=== PATIENT | female | born 1945 | race Caucasian/White ===

== ENCOUNTER 2022-08-02 11:29 | Outpatient (OUT) | payer MEDICARE, MEDICAID, SELFPAY ==
[2022-08-02 12:55] LABS: Alanine Aminotransferase 26 U/L (14-59); Albumin Globulin Ratio 0.8; Albumin Level 3.2 g/dL (3.4-5.0); Alkaline Phosphatase 78 U/L (46-116); Anion Gap 10.4; Aspartate Amino Transferase 15 U/L (15-37); BUN Creatinine Ratio 19.3; Bilirubin Total 0.6 mg/dL (0.2-1.0); Calcium 9.6 mg/dL (8.5-10.1); Carbon Dioxide 31.4 mmol/L (21.0-32.0); Chloride 99 mmol/L (98-107); Chol HDL Ratio 2.1; Cholesterol 158 mg/dL (<=200); Estimated GFR (African America 43 (>=60); Estimated GFR (Non-African Ame 35 (>=60); Glucose 199 mg/dL (74-106); HDL Cholesterol 77 mg/dL (40-60); Potassium 4.8 mmol/L (3.5-5.1); Sodium 136 mmol/L (136-145); Total Protein 7.2 g/dL (6.4-8.2); Triglycerides 94 mg/dL (<=150); VLDL CHOLESTEROL 18.8 mg/dL
== END 2022-08-02 11:30 ==
PROVIDERS: PCP Family Medicine; Visit Provider Nurse Practitioner
DX: E78.2 Mixed hyperlipidemia (principal); I25.10 Atherosclerotic heart disease of native coronary artery without angina pectoris
CPT/HCPCS: 36415; 80053; 80061

== ENCOUNTER 2022-09-05 14:15 | Outpatient (OUT) | payer MEDICARE, SELFPAY ==
[2022-09-05 15:09] LABS: Estimated Average Glucose 160 mg/dL; Glycohemoglobin A1C 7.2 % (4.5-6.2)
== END 2022-09-05 14:16 | disposition home or self-care (01) ==
PROVIDERS: PCP Family Medicine; Visit Provider Family Medicine
DX: E11.65 Type 2 diabetes mellitus with hyperglycemia (principal)
CPT/HCPCS: 36415; 82043; 83036

== ENCOUNTER 2023-02-15 10:23 | Outpatient (OUT) | payer MEDICARE, MEDICAID, SELFPAY ==
--- NOTE | 2023-02-15 10:33 | US_ITS ---
[address] [address] Patient Name: RIVKA TURNER MRN: [id number] date: 1945 Sex: F Assigned Patient Location: Current Patient Location: Accession/Order Number: [id number] Exam Date: 02/15/2023 10:40 Report Date: 02/17/2023 01:24 At the request of: CHRISTOPHER GALICIA Procedure: US carotid duplex BI EXAMINATION: US carotid duplex BI HISTORY: bilateral carotid artery stenosis I65.23 COMPARISON: Ultrasound carotid artery bilateral 11/28/2019 TECHNIQUE: Duplex Doppler ultrasound analysis of carotid and vertebral arteries. . Bilateral carotid arterial duplex examination was performed using B-mode, color flow and spectral analysis. Carotid stenosis is reported according to validated velocity parameters, similar to NASCET criteria. FINDINGS: RIGHT CAROTID ARTERY: Moderate atherosclerotic narrowing of the distal CCA, bulb, proximal ICA. RIGHT VERTEBRAL: Antegrade flow. Subclavian: PSV: 228.2 cm/s EDV: 0.0 cm/s CCA: Prox: PSV: 112.9 cm/s EDV: 6.3 cm/s Mid: PSV: 84.0 cm/s EDV: 8.9 cm/s Distal: PSV: 59.8 cm/s EDV: 5.8 cm/s BULB: PSV: 66.8 cm/s EDV: 7.5 cm/s ICA: Prox: PSV: 90.8 cm/s EDV: 13.8 cm/s Mid: PSV: 82.0 cm/s EDV: 16.0 cm/s Distal: PSV: 85.3 cm/s EDV: 16.0 cm/s ECA: PSV: 202.2 cm/s EDV: 0.0 cm/s VERTEBRAL: PSV: 47.9 cm/s EDV: 9.5 cm/s ICA/CCA ratio: PSV: 1.1 EDV: 1.6 LEFT CAROTID ARTERY: Moderate atherosclerotic narrowing of distal CCA, bulb, proximal ICA. Moderate-marked atherosclerotic narrowing of proximal ECA. LEFT VERTEBRAL: Antegrade flow. Subclavian: PSV: 209.4 cm/s EDV: 0.0 cm/s CCA: Prox: PSV: 77.6 cm/s EDV: 13.8 cm/s Mid: PSV: 77.6 cm/s EDV: 13.8 cm/s Distal: PSV: 75.4 cm/s EDV: 12.7 cm/s BULB: PSV: 125.3 cm/s EDV: 17.1 cm/s ICA: Prox: PSV: 73.2 cm/s EDV: 18.9 cm/s Mid: PSV: 88.8 cm/s EDV: 24.1 cm/s Distal: PSV: 91.4 cm/s EDV: 17.6 cm/s ECA: PSV: 293.7 cm/s EDV: 17.9 cm/s VERTEBRAL: PSV: 85.9 cm/s EDV: 15.0 cm/s ICA/CCA ratio: PSV: 1.6 EDV: 1.2 US/US carotid duplex BI IMPRESSION: 1. 0-49% flow stenosis within the right left carotid arteries secondary to moderate atherosclerotic narrowing. 2. Elevated flow velocities and moderate-marked atherosclerotic narrowing within left ECA. Electronically authenticated by: LISSETTE VILLALOBOS Date: 02/17/2023 01:24
== END 2023-02-15 10:24 | disposition home or self-care (01) ==
LOC: US 10:24
PROVIDERS: PCP Family Medicine; Visit Provider Nurse Practitioner Family
DX: I65.23 Occlusion and stenosis of bilateral carotid arteries (principal)
CPT/HCPCS: 93880

== ENCOUNTER 2023-08-03 13:45 | Outpatient (OUT) | payer MEDICARE, MEDICAID, SELFPAY ==
--- OUTSIDE RECORDS SUMMARY | 2023-08-03 14:16 | XMS_ITS | CCD ---
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 Name Role Phone CHIDI MELLO Unavailable Unavailable SVEN WILKINS Unavailable Unava ilable KELLI HANKINS Admitting Unavailable KELLI HANKINS Attending Unavailable AMADOR ABDALLA Primary Care Unavailable CHIDI LEWIS Referring Unavailable Unavailable Primary Care Provider Unavailromie e MD Amador Abdalla Primary Care Provider [phone] MD Xander Hammer Admit Provider SHAHNAZ Pittman Other Provider Unavailable DO Gen Bolivar Other Provider MD Wil Domínguez Other Provider MD Zafar Luu Other Provider MD Isabel Beckwith Other Provider [phone] MD Rufus Sauceda Other Provider ARIEL Resendiz Other Provider MD Latosha Figueroa Other Provider MD Dinora Haynes Other Provider MD Rahul Hi Other Provider MD Rusty Amor Attending Provider PROVIDER, UNKNOWN Attending Unavailable PROVIDER, UNKNOWN Admitting Unavailable Unavailable Unavailable Amador Abdalla Primary Care Unavailable Elba Pittman Consulting Unavailable Xander Hammer Admitting Unavailab Rusty Ontiveros Attending Unavailable Gen Bolivar Consulting Unavailable Domínguez, Wil Consulting Unavailable Bell, Zafar Carson Consulting Unavail able Isabel Beckwith Consulting Unavailable Sohail, Rufus Consulting Unavailab alverto Kaur, Sandra Zuniga Consulting Unavailable Figueroa, Latosha Consulting Unavailable Dallas, Dinora Yohanaeb Consulting Unavailab alverto Hi, Tarek Consulting Unavailable NADERER, DR AMADOR Arcos Consulting Unavailable NADERER, DR AMADOR Arcos Attending Unavailable NADERER, DR AMADOR Arcos Admitting Unavailable NADERER, DR AMADOR Arcos Primary Care Unavailable NADERER, DR AMADOR Arcos Primary Care Unavailable FAWWAD, GREGORIO H Admitting Unavailable WEST, DR CHRYSTAL Howard Consulting Unavailable FAWWAD, GREGORIO H Attending Unavailable FAWWAD, GREGORIO H Consulting Unavailable NADERER, DR AMADOR Arcos Primary Care Unavailable TYSON, DR ANN Consulting Unavailable TYSON, DR ANN Attending Unavailable TYSON, DR ANN Admitting Unavailable MOUKARBEL, DR FIGUEROA Attending Unavailable MOUKARBEL, DR FIGUEROA Admitting Unavailable NADERER, DR AMADOR Arcos Primary Care Unavailable NADERER, DR AMADOR Arcos Primary Care Unavailable FAWWAD, GREGORIO H Attending Unavailable NELSON ., TARA Consulting Unavailable FAWWAD, GREGORIO H Admitting Unavailable FAWWAD, GREGORIO H Consulting Unavailable ANA PAULA LANDERS Consulting Unavailable UNLU, SAI Consulting Unavailable NADERER, DR AMADOR Arcos Primary Care Unavailable HOY ., DR LAU Consulting Unavailable HOY ., DR LAU Attending Unavailable HOY ., DR LAU Admitting Unavailable PAY ., DR REGAN Consulting Unavailable GRECHNY ., VIGNESH TSANG Consulting Unavailabl e POLICARO, NASRIN Consulting Unavailable KATKO, TRENTON D Consulting Unavailable KATKOJESSTRENTON D Attending Unavailable KATKO, TRENTON D Admitting Unavailable NADERER, DR AMADOR Arcos Primary Care Unavailable STANFORD BUENROSTRO Consulting Unavailable HAY ., DR FLEMING Admitting Unavailable HAY ., DR FLEMING Consulting Unavailable HAY ., DR FLEMING Attending Unavailable NADERER, DR AMADOR Arcos Primary Care Unavailable NADERER, DR AMADOR Arcos Primary Care Unavailable WEST, DR CHRYSTAL Howard Consulting Unavailable HAY ., DR FLEMING Attending Unavailable HAY ., DR FLEMING Admitting Unavailable GRECHNY ., VIGNESH TSANG Consulting Unavailabl e NADERER, DR AMADOR Arcos Consulting Unavailable NADERER, DR AMADOR Arcos Attending Unavailable NADERER, DR AMADOR Arcos Admitting Unavailable NADERER, DR AMADOR Arcos Primary Care Unavailable YUSRA, ELY Consulting Unavailable YUSRA, ELY Attending Unavailable YUSRA, ELY Admitting Unavailable NADERER, DR AMADOR Arcos Primary Care Unavailable YUSRA, ELY Attending Unavailable YUSRA, ELY Admitting Unavailable NADERER, DR AMADOR Arcos Primary Care Unavailable YUSRA, ELY Consulting Unavailable NADERER, DR AMADOR Arcos Consulting Unavailable NADERER, DR AMADOR Arcos Attending Unavailable NADERER, DR AMADOR Arcos Admitting Unavailable NADERER, DR AMADOR Arcos Primary Care Unavailable POLICARO, NASRIN Consulting Unavailable OVITT, CARMINA Referring Unavailable MOUKACAROLINA FELICIANO Attending Unavailable CHRISTOPHER GALICIA Attending Unavailable OVITT, CARMINA Attending Unavailable NADERER, AMADOR Attending Unavailable AMAYA WILKINS Attending Unavailable Allergies Allergy Classification Reported Allergen(s) Allergy Type Date of Onset Reaction(s) Facility (5 sources) Clindamycin; Translations: [CLINDAMYCIN] Drug Allergy 04-05-19 16 Difficulty Swallowing [facility] (1 source) Codeine Drug Allergy 12-31-19 09 [facility] (1 source) cyclobenzaprine Drug Allergy 12-31-19 09 [facility] (3 sources) exenatide Drug Allergy 08-26-19 17 [facility] (4 sources) Penicillins; Translations: [PENICILLINS] Drug allergy (disorder) 12-31-19 09 Itching [facility] (1 source) Prochlorperazine Drug Allergy 12-31-19 09 [facility] (2 sources) Iodinated Contrast Media - IV Dye Drug allergy (disorder) 12-31-19 09 [facility] (1 source) trival; Translations: [trival] Propensity to adverse reactions (disorder) 12-17-19 13 [facility] (4 sources) Amoxicillin; Translations: [amoxicillin] Drug Allergy 06-25-19 22 Unknown Reaction [facility] (5 sources) cyclobenzaprine; Translations: [cyclobenzaprine] Drug Allergy 12-12-19 13 Itching [facility] (6 sources) Doxycycline; Translations: [doxycycline] Drug Allergy 12-22-19 20 Unknown Reaction [facility] (5 sources) exenatide; Translations: [exenatide] Drug Allergy 12-28-19 13 Rash [facility] (5 sources) Prochlorperazine; Translations: [prochlorperazine] Drug Allergy 12-12-19 13 Cramping of the Muscles [facility] (6 sources) Sucralfate; Translations: [sucralfate] Drug Allergy 12-22-19 20 Nausea [facility] (7 sources) traZODone; Translations: [trazodone] Drug Allergy 12-19-19 Nausea [facility] (3 sources) Iodinated Contrast Media; Translations: [Iodinated Contrast Media] Allergy to substance 02-07-20 14 Itching [facility] (2 sources) Clindamycin; Translations: [facility]ind[facility] (2 sources) Penicillins; Translations: [[facility]enicillins] [facility] (1 source) Clindamycin Drug Allergy 06-25-19 [facility] (1 source) Penicillins Drug allergy (disorder) 06-25-19 [facility] (1 source) Clindamycin Drug Allergy [facility] (1 source) cyclobenzaprine Drug Allergy [facility] (1 source) Levamisole Drug Allergy 12-03-19 21 [facility] (1 source) liraglutide Drug Allergy 07-16-19 22 [facility] (1 source) Prochlorperazine Drug Allergy [facility] (2 sources) Trivora (28) Drug allergy (disorder) [facility] (1 source) Misc-Drug Drug allergy (disorder) [facility] (1 source) Codeine; Translations: [CODEINE] Drug Allergy 12-28-19 [facility] (1 source) Contrast media; Translations: [DYE] Propensity to adverse reactions to drug (disorder) 06-03-19 [facility] (1 source) Ticagrelor; Translations: [TICAGRELOR] Drug Allergy 06-03-19 [facility] (1 source) OTHER; Translations: [OTHER] Propensity to adverse reactions (disorder) 12-12-19 [facility] Medications Current Medications Medication Drug Class(es) Dates Sig (Normalized) Sig (Original) acetaminophen 325 mg / HYDROcodone bitartrate 5 mg oral tablet (1 source) Opioid Agonist Start: 06-24-2021 take 1 tablet by mouth every eight hours Hydrocodone-Aceta minophen Active 1 TAB PO Q8H June 24, 2021 4:16am ALPRAZolam 0.5 mg oral tablet (1 source) Benzodiazepine Start: 06-24-2021 take 0.5 mg by mouth three times daily Alprazolam Active 0.5 MG PO Three times daily June 24, 2021 4:16am amLODIPine 10 mg oral tablet (1 source) Dihydropyridine Calcium Channel Tung Start: 06-24-2021 take 10 mg by mouth once daily Amlodipine Active 10 MG PO Daily June 24, 2021 4:16am aspirin 81 mg oral tablet (1 source) Platelet Aggregation Inhibitor, Nonsteroidal Anti-inflammatory Drug Start: 06-24-2021 take 81 mg by mouth once daily Aspirin Active 81 MG PO Daily June 24, 2021 4:16am atorvastatin 80 mg oral tablet (2 sources) HMG-CoA Reductase Inhibitor Start: 06-24-2021 take 80 mg by mouth at bedtime Atorvastatin Active 80 MG PO Bedtime 30 June 24, 2021 4:10pm Start: 06-24-2021 End: 06-25-2021 take 40 mg by mouth at bedtime Atorvastatin Discontinu ed 40 MG PO Bedtime June 24, 2021 4:16am June 25, 2021 11:27am 24 hr buPROPion hydrochloride 150 mg extended release oral tablet (1 source) Aminoketone Start: 06-24-2021 take 150 mg by mouth once daily Bupropion Hcl Active 150 MG PO Daily June 24, 2021 4:16am carvedilol 12.5 mg oral tablet (1 source) alpha-Adrenergic Tung, beta-Adrenergic Tung Start: 06-24-2021 take 12.5 mg by mouth twice daily at mealtime Carvedilol Active 12.5 MG PO Twice daily with meals 60 June 24, 2021 4:10pm 30 actuat fluticasone furoate 0.05 mg/actuat dry powder inhaler (1 source) Corticosteroid Start: 06-24-2021 Fluticasone Furoate Active 2 INH INHALATION Daily June 24, 2021 4:16am furosemide 40 mg oral tablet (1 source) Loop Diuretic Start: 06-24-2021 take 40 mg by mouth once daily Furosemide Active 40 MG PO Daily June 24, 2021 4:16am hydrALAZINE hydrochloride 50 mg oral tablet (1 source) Arteriolar Vasodilator Start: 06-24-2021 take 50 mg by mouth twice daily Hydralazine Active 50 MG PO Twice daily June 24, 2021 4:16am 3 ml liraglutide 6 mg/ml pen injector (1 source) GLP-1 Receptor Agonist Start: 06-25-2021 inject 0.6 mg by subcutaneous injection once daily, then inject 1.2 mg by subcutaneous injection once daily Liraglutide (Victoza 3-Dae) 0.6 mg/0.1 mL (18 mg/3 mL) pen injector Active 1.2 MG SUBCUT Daily 6 June 25, 2021 10:54am 0.6mg sq daily x 1 week then 1.2 mg sq daily thereafter if well tolerated losartan potassium 50 mg oral tablet (1 source) Angiotensin 2 Receptor Tung Start: 06-24-2021 take 50 mg by mouth once daily Losartan Active 50 MG PO Daily June 24, 2021 4:16am 24 hr metFORMIN hydrochloride 500 mg extended release oral tablet (1 source) Biguanide Start: 06-24-2021 take 500 mg by mouth twice daily Metformin Active 500 MG PO Twice daily June 24, 2021 4:16am montelukast 10 mg oral tablet (1 source) Leukotriene Receptor Antagonist Start: 06-24-2021 take 10 mg by mouth at bedtime Montelukast Active 10 MG PO Bedtime June 24, 2021 4:16am ondansetron 4 mg disintegrating oral tablet (1 source) Serotonin-3 Receptor Antagonist Start: 06-24-2021 take 4 mg by mouth every six hours Ondansetron Active 4 MG PO Q6H June 24, 2021 4:16am pantoprazole 40 mg delayed release oral tablet (1 source) Proton Pump Inhibitor Start: 06-24-2021 take 40 mg by mouth twice daily Pantoprazole Active 40 MG PO Twice daily June 24, 2021 4:16am PARoxetine hydrochloride 40 mg oral tablet (1 source) Serotonin Reuptake Inhibitor Start: 06-24-2021 take 40 mg by mouth once daily Paroxetine Hcl Active 40 MG PO Daily June 24, 2021 4:16am temazepam 30 mg oral capsule (1 source) Benzodiazepine Start: 06-24-2021 take 30 mg by mouth at bedtime Temazepam Active 30 MG PO Bedtime June 24, 2021 4:16am ticagrelor 90 mg oral tablet (1 source) Start: 06-24-2021 take 1 tablet by mouth twice daily Ticagrelor (Brilinta) 90 mg Tablet Active 90 MG PO Twice daily 180 90 June 24, 2021 4:10pm Completed/Discontinued Medications Medication Drug Class(es) Dates Sig (Normalized) Sig (Original) glipiZIDE 10 mg oral tablet (1 source) Sulfonylurea Start: 06-24-2021 End: 06-25-2021 take 10 mg by mouth once daily Glipizide Discontinued 10 MG PO Daily June 24, 2021 4:16am June 25, 2021 11:27am nitroglycerin 0.4 mg sublingual tablet (3 sources) Nitrate Vasodilator Start: 10-21-2021 Nitroglycerin 0.4 MG Sublingual Tablet Sublingual DISSOLVE 1 TABLET UNDER TONGUE NEEDED CHEST PAIN. MAY REPEAT EVERY 5 MINUTES IF NEEDED, AFTER 3RD DOSE CALL 911 Quantity: 1 Refills: 3 Ordered: 21-Oct-2021 Zafar Bolivar DO Start : 21-Oct-2021 Active Start: 06-24-2021 Nitroglycerin Active 0.4 MG SUBLINGUAL Q5M 25 June 24, 2021 4:10pm Problems Active Problems Problem Classification Problem Date Documented Da te Episodic/Chronic Abdominal hernia (1 source) Diaphragmatic hernia without obstruction or gangrene; Translations: [DIAPH HERNIA W/O OBST/GANGRENE] Onset: 3 Episodic Acute and unspecified renal failure (1 source) Acute kidney failure, unspecified; Translations: [ACUTE KIDNEY FAILURE UNSPECIFIED] Onset: 3 Episodic Acute myocardial infarction (2 sources) Myocardial infarction; Translations: [Non-ST elevation (NSTEMI) myocardial infarction] 06-24-2021 Chronic Anxiety disorders (3 sources) Anxiety disorder, unspecified; Translations: [Claustrophobia] Onset: 3 Chronic Bacterial infection; unspecified site (2 sources) Enterococcus as the cause of diseases classified elsewhere; Translations: [Klebsiella pneumoniae [K. pneumoniae] as the cause of diseases classified elsewhere] Onset: 2 Episodic Chronic kidney disease (6 sources) Chronic kidney disease; Translations: [Chronic kidney disease, unspecified] Onset: 2 06-24-2021 Chronic Chronic kidney disease (4 sources) Chronic kidney disease; Translations: [CHRONIC KIDNEY DISEASE STAGE 3B] Onset: 2 Congestive heart failure; nonhypertensive (7 sources) Chronic diastolic (congestive) heart failure; Translations: [CHRONIC DIASTOLIC HEART FAILURE] Onset: 2 Chronic Coronary atherosclerosis and other heart disease (10 sources) Coronary arteriosclerosis; Translations: [Atherosclerotic heart disease of [place] coronary artery without angina pectoris] Onset: 2 06-24-2021 Chronic Diabetes mellitus with complications (7 sources) Type 2 diabetes mellitus with diabetic chronic kidney disease; Translations: [Type 2 diabetes mellitus with hyperglycemia] Onset: 2 Chronic Diabetes mellitus without complication (4 sources) Diabetes mellitus; Translations: [Type 2 diabetes mellitus without complications] Onset: 2 06-24-2021 Chronic Disorders of lipid metabolism (2 sources) Pure hypercholesterolemia, unspecified; Translations: [Hyperlipidemia, unspecified] Onset: 2 Chronic Esophageal disorders (4 sources) Gastroesophageal reflux disease; Translations: [Gastro-esophageal reflux disease without esophagitis] Onset: 2 06-24-2021 Chronic Essential hypertension (5 sources) Hypertensive disorder; Translations: [Essential (primary) hypertension] Onset: 2 06-24-2021 Chronic Fluid and electrolyte disorders (2 sources) Dehydration; Translations: [Hypokalemia] Onset: 2 Episodic Genitourinary symptoms and ill-defined conditions (5 sources) Urgency of urination; Translations: [Dysuria] Onset: 3 Episodic Hypertension with complications and secondary hypertension (2 sources) Hypertensive heart and chronic kidney disease with heart failure and stage 1 through stage 4 chronic kidney disease, or unspecified chronic kidney disease; Translations: [Hypertensive heart disease with heart failure] Onset: 2 Chronic Malaise and fatigue (4 sources) Weakness; Translations: [WEAKNESS] Onset: 2 Episodic Miscellaneous mental health disorders (1 source) Psychophysiologic insomnia; Translations: [PSYCHOPHYSIOLOGIC INSOMNIA] Onset: 3 Chronic Mood disorders (3 sources) Depressive disorder; Translations: [Depression] Onset: 2 06-24-2021 Chronic Mood disorders (2 sources) Mood disorders; Translations: [F32.A - Depression, unspecified] Onset: 2 Mycoses (1 source) Candidiasis of skin and nail; Translations: [CANDIDIASIS OF SKIN AND NAIL] Onset: 3 Episodic Nonspecific chest pain (1 source) Chest pain; Translations: [Chest pain, unspecified] Episodic Nutritional deficiencies (1 source) Vitamin D deficiency, unspecified; Translations: [VITAMIN D DEFICIENCY UNSPECIFIED] Onset: 3 Chronic Occlusion or stenosis of precerebral arteries (2 sources) Occlusion and stenosis of bilateral carotid arteries; Translations: [Occlusion and stenosis of bilateral carotid arteries] Onset: 2 Chronic Other acquired deformities (1 source) Other forms of scoliosis, lumbar region; Translations: [OTHER FORMS SCOLIOSIS LUMBAR REGION] Onset: 3 Chronic Other aftercare (1 source) Other intermediate card tender (current) drug therapy; Translations: [OTH CORRECTION CURRENT DRUG THERAPY] Onset: 3 Episodic Other aftercare (1 source) snf (current) use of aspirin; Translations: [CORRECTION CURRENT USE OF ASPIRIN] Onset: 3 Episodic Other circulatory disease (1 source) Personal history of transient ischemic attack (TIA), and cerebral infarction without residual deficits; Translations: [PERS HX TIA AND CI NO RESID DEFICIT] Onset: 3 Episodic Other connective tissue disease (1 source) Fibromyalgia; Translations: [Fibromyalgia] 06-24-2021 Episodic Other connective tissue disease (3 sources) Fibromyalgia; Translations: [Myalgia and myositis, unspecified] Onset: 2 Episodic Other connective tissue disease (1 source) Repeated falls; Translations: [REPEATED FALLS] Onset: 3 Episodic Other gastrointestinal disorders (1 source) Other constipation; Translations: [OTHER CONSTIPATION] Onset: 3 Episodic Other lower respiratory disease (1 source) Paroxysmal nocturnal dyspnea; Translations: [Dyspnea, unspecified] Episodic Other nervous system disorders (3 sources) Cerebral cysts; Translations: [CEREBRAL CYSTS] Onset: 3 Chronic Other nervous system disorders (1 source) Other chronic pain; Translations: [OTHER CHRONIC PAIN] Onset: 2 Chronic Other nervous system disorders (1 source) Unsteadiness on feet; Translations: [UNSTEADINESS ON FEET] Onset: 3 Episodic Other nervous system disorders (1 source) Other abnormalities of gait and mobility; Translations: [OTHER ABNORMALITIES GAIT AND MOBILITY] Onset: 3 Episodic Other non-traumatic joint disorders (1 source) Polyarthritis, unspecified; Translations: [POLYARTHRITIS UNSPECIFIED] Onset: 3 Chronic Other nutritional; endocrine; and metabolic disorders (1 source) Morbid (severe) obesity due to excess calories; Translations: [MORBID SEVERE OBES D/T EXCESS SVETLANA] Onset: 2 Chronic Other nutritional; endocrine; and metabolic disorders (1 source) Body mass index (BMI) 32.0-32.9, adult; Translations: [BODY MASS INDEX BMI 32.0-32.9 ADULT] Onset: 2 Chronic Residual codes; unclassified (1 source) Acquired absence of other specified parts of digestive tract; Translations: [ACQ ABSENCE OTH PART DIGESTV TRACT] Onset: 3 Episodic Residual codes; unclassified (1 source) Acquired absence of both cervix and uterus; Translations: [ACQUIRED ABSENCE BOTH CERVIX AND UTERUS] Onset: 3 Episodic Spondylosis; intervertebral disc disorders; other back problems (1 source) Spondylosis without myelopathy or radiculopathy, cervical region; Translations: [SPONDYLS W/O MYELO-/RADICULOP CERV] Onset: 3 Chronic Spondylosis; intervertebral disc disorders; other back problems (4 sources) Dorsalgia, unspecified; Translations: [DORSALGIA UNSPECIFIED] Onset: 3 Episodic Unclassified (1 source) I21.4 - Non-ST elevation (NSTEMI) myocardial infarction; Translations: [I21.4 - Non-ST elevation (NSTEMI) myocardial infarction] Onset: 2 Unclassified (1 source) CHRN KIDNEY DISEASE STG 3 UNSP; Translations: [CHRN KIDNEY DISEASE STG 3 UNSP] Onset: 3 Unclassified (1 source) ACUTE CANDIDIASIS VULVA AND VAGINA; Translations: [ACUTE CANDIDIASIS VULVA AND VAGINA] Onset: 3 Unclassified (1 source) CONTACT W/AND (SUSP) EXPOS COVID-19; Translations: [CONTACT W/AND (SUSP) EXPOS COVID-19] Onset: 3 Urinary tract infections (2 sources) Urinary tract infection, site not specified; Translations: [UTI SITE NOT SPECIFIED] Onset: 2 Episodic Past or Other Problems Problem Classification Problem Date Documented Da te Episodic/Chronic Abdominal pain (4 sources) Unspecified abdominal pain; Translations: [UNSPECIFIED ABDOMINAL PAIN] Onset: 08-31-2021 Episodic Coronary atherosclerosis and other heart disease (5 sources) Patient post percutaneous transluminal coronary angioplasty; Translations: [Percutaneous transluminal coronary angioplasty status] Onset: 05-18-2022 Episodic Nausea and vomiting (8 sources) Nausea with vomiting, unspecified; Translations: [Nausea] Onset: 08-16-2021 Episodic Other aftercare (1 source) snf (current) use of oral hypoglycemic drugs; Translations: [CORRECTION USE ORAL HYPOGLYCEMIC DX] Onset: 08-18-2021 Episodic Other gastrointestinal disorders (1 source) Diarrhea, unspecified; Translations: [DIARRHEA UNSPECIFIED] Onset: 08-30-2021 Episodic Other lower respiratory disease (1 source) Personal history of pneumonia (recurrent); Translations: [PERSONAL HX OF PNEUMONIA RECURRENT] Onset: 07-21-2021 Episodic Other nervous system disorders (2 sources) Other speech disturbances; Translations: [Other speech disturbances] Onset: 08-29-2022 Episodic Other screening for suspected conditions (not mental disorders or infectious disease) (1 source) Abnormal results of thyroid function studies; Translations: [ABNORMAL RESULTS THR FUNCTION STDY] Onset: 07-21-2021 Episodic Residual codes; unclassified (4 sources) Early satiety; Translations: [EARLY SATIETY] Onset: 09-09-2021 Episodic Results Test Name Value Interpretation Reference Range Facility 36on 03-05-2023 36 Please let her know her recent carotid ultrasound showed things were stable. Plan for a follow-up ultrasound in 1 year. Follow-up in 6 months. Thanks! [facility] Telephoneon 03-05-2023 Telephone [id number] Irma Turner 1945 F Date Provider Department Center 03/05/2023 CHRISTOPHER SHIN Family History Problem Relation Age of Onset Breast cancer Mother Stroke Father Family Status - Relation Status Age at Mother Father [facility] Office Visiton 01-31-2023 Follow-up visit [id number] Irma Turner 1945 F Date Provider Department Center 01/31/2023 CHRISTOPHER SHIN Family History Problem Relation Age of Onset Breast cancer Mother Stroke Father Family Status - Relation Status Age at Mother Father Level of Service:78912 [place] OFFICE/OUTPATIENT ESTABLISHED MOD MDM 30-39 MIN Reason for Visit and Comments: Congestive Heart Failure [127] Hypertension [248331] Carotid Artery Disease [453] [facility] Consulton 08-29-2022 Consult [id number] Irma Turner 1945 Date Provider Department Center 08/29/2022 CARMINA SAMANIEGO [facility] [place] Family History Problem Relation Age of Onset Breast cancer Mother Stroke Father Family Status - Relation Status Age at Mother Father Level of Service:39041 [place] OFFICE/OUTPATIENT NEW MODERATE MDM 45-59 MINUTES [facility] Office Visiton 08-02-2022 Follow-up visit [id number] Irma Turner 1945 F Date Provider Department Center 08/02/2022 CAROLINA MARCOS CHARLES Arnold Family History Problem Relation Age of Onset Stroke Father Family Status - Relation Status Age at Father Level of Service:86423 [place] OFFICE/OUTPATIENT ESTABLISHED MOD MDM 30-39 MIN Reason for Visit and Comments: Follow-up [118595] Coronary Artery Disease [187] Hypertension [421128] Congestive Heart Failure [127] [facility] 36on 07-21-2022 36 LVM for pt to call [facility] to schedule consult with Carmina Mills CNP for Arachnoid Cyst. Images pushed from [facility]. Letter sent to pt's home. [facility] Telephoneon 07-21-2022 Telephone [id number] Irma Turner 1945 F Date Provider Department Center 07/21/2022 Christiano-AYANA JEONG [facility] [place] Fl Family History Problem Relation Age of Onset Stroke Father Family Status - Relation Status Age at Father [facility] MRI BRAIN WO W CONon 023 MRI BRAIN WO W CON EXAMINATION: MRI BRA IN WO W CON HISTORY: Cerebral cyst COMPARISON: CT head 05/13/2022 TECHNIQUE: A variety of imaging planes and parameters were utilized for visualization of suspected pathology. Images were performed without and with ml Dotarem contrast. FINDINGS: CEREBRUM: No edema, hemorrhage, mass, acute infarction, or inappropriate atrophy. CEREBELLUM: Within the posterior fossa between the tentorium and cerebellum is a 3.9 x 2.6 x 2.4 cm encapsulated fluid collection with imperceptible segura and no enhancement. This is within the midline cerebellum and causes slight upward displacement of the tentorium. BRAINSTEM: No edema, hemorrhage, mass, acute infarction, or inappropriate atrophy. CSF SPACES: Ventricles, cisterns, and sulci are appropriate for age. No hydrocephalus, subarachnoid hemorrhage, or mass. SKULL: No mass or other significant visible lesion. SINUSES: Limited views demonstrate no significant mucosal thickening or fluid. ORBITS: Limited views are unremarkable. OTHER: No abnormal meningeal or parenchymal enhancement. IMPRESSION: 1. Large benign-appearing arachnoid cyst within posterior fossa which appears to be connected to the fourth ventricle. 2. Age consistent atrophy and mild chronic small vessel ischemic changes. Electronically authenticated by: LISSETTE VILLALOBOS Date: 2022-07-04 09:08 Normal [facility] CREATININEon 07-03-2022 Creatinine [Mass/Vol] 1.87 mg/dL Critically high 0.55-1.02 [facility] Comment on above: Performed By: #### U DORY #### [facility] [address] [address] [address] Gasper Garber EGFR-AF [place] 32 mL/min/1.73m2 Critically low >=60 [facility] Comment on above: Performed By: #### U ARMICR #### [facility] [address] [address] [address] Gasper Garber EGFR-NON AF [place] 26 mL/min/1.73m2 Critically low >=60 [facility] Comment on above: Performed By: #### U ARMICR #### [facility] [address] [place] [address] Dr. Gasper Garber UA (CLEAN/CATCH) MICROSCOPIC IF INDICATEon 05-26-2022 Bilirubin Ql (U) Negative Normal NEGATIVE [facility] Comment on above: Performed By: #### U ARMICR #### [facility] [address] [place] [address] Dr. Gasper Garber Clarity (U) CLEAR Normal CLEAR [facility] Comment on above: Performed By: #### U ARMICR #### [facility] [address] [place] [address] Dr. Gasper Garber Color (U) LT. YELLOW Normal YELLOW [facility] Comment on above: Performed By: #### U ARMICR #### [facility] [address] [place] [address] Dr. Gasper Garber Glucose Ql (U) Negative Normal NEGATIVE [facility] Comment on above: Performed By: #### U ARMICR #### [facility] [address] [place] [address] Dr. Gasper Garber Hemoglobin Ql (U) Negative Normal NEGATIVE [facility] Comment on above: Performed By: #### U ARMICR #### [facility] [address] [place] [address] Dr. Gasper Garber Ketones Ql (U) Negative Normal NEGATIVE [facility] Comment on above: Performed By: #### U ARMICR #### [facility] [address] [place] [address] Dr. Gasper Garber LEUKOCYTES Negative Normal NEGATIVE [facility] Comment on above: Performed By: #### U ARMICR #### [facility] [address] [place] [address] Dr. Gasper Garber Nitrite Ql (U) Negative Normal NEGATIVE [facility] Comment on above: Performed By: #### U ARMICR #### [facility] [address] [place] [address] Dr. Gasper Garber pH (U) 6.5 [pH] Normal 5-9 [facility] Comment on above: Performed By: #### U ARMICR #### [facility] [address] [place] [address] Dr. Gasper Garber SPEC GRAVITY 1.010 Normal 1.005-<=1.0 25 [facility] Comment on above: Performed By: #### U ARMICR #### [facility] [address] [place] [address] Dr. Gasper Garber UA PROTEIN TRACE Normal NEGATIVE/ TRACE [facility] Comment on above: Performed By: #### U ARMICR #### [facility] [address] [place] [address] Dr. Gasper Garber UR MICRO IND NOT INDICATED Normal [facility] Comment on above: Performed By: #### U ARMICR #### [facility] [address] [place] [address] Dr. Gasper Garber Urobilinogen Qn (U) 0.2 {Kaushik'U}/dL Normal 0.2 - 1. 0 [facility] Comment on above: Performed By: #### U ARMICR #### [facility] [address] [place] [address] Dr. Gasper Garber CULTURE URINEon 05-16-2022 CULTURE URINE Isolate 1 Enterococcus faecium >100,000 cfu/mL of ORGANISM 1 Enterococcus faecium ANTIBIOTIC M.I.C RX STATUS Benzylpenicillin 2 S F Ampicillin <=2 S F Gentamicin High Level (synergy) SYN-S S F Streptomycin High Level (synergy) SYN-S S F Ciprofloxacin <=0.5 S F Levofloxacin 1 S F Quinupristin/Dalfopristin 1 S F Linezolid 1 S F Vancomycin <=0.5 S F Tetracycline <=1 S F Nitrofurantoin <=16 S F Normal [facility] Comment on above: Performed By: #### U RCX #### [facility] [address] [place] [address] Dr. Gasper Garber MAGNESIUMon 05-16-2022 Magnesium [Mass/Vol] 2.0 mg/dL Normal 1.8-2.4 [facility] Comment on above: Performed By: #### BERNIE MALDONADO #### [facility] [address] [place] [address] Dr. Gasper Garber CBC AUTO DIFFon 05-15-2022 BASO # 0.0 103/ul Normal 0.0-0.1 [facility] Comment on above: Performed By: #### TONI MALDONADORO #### [facility] [address] [place] [address] Dr. Gasper Garber Basophils/100 WBC (Bld) 0.5 % Normal 0.2-2.0 [facility] Comment on above: Performed By: #### BERNIE MALDONADO #### [facility] [address] [place] [address] Dr. Gasper Garber EO # 0.2 103/ul Normal 0.0-0.7 [facility] Comment on above: Performed By: #### BERNIE MALDONADO #### [facility] [address] [place] [address] Dr. Gasper Garber Eosinophils/100 WBC (Bld) 1.8 % Normal 0.9-7.0 [facility] Comment on above: Performed By: #### BERNIE MALDONADO #### [facility] [address] [place] [address] Dr. Gasper Garber Erythrocyte distribution width (RBC) [Ratio] 12.5 % Normal 11.0-15.0 [facility] Comment on above: Performed By: #### TONI MALDONADORO #### [facility] [address] [place] [address] Dr. Gasper Garber Hematocrit (Bld) [Volume fraction] 36.1 % Normal 36.0-48.0 [facility] Comment on above: Performed By: #### TONI MALDONADORO #### [facility] [address] [place], [place] [id number] Dr. Gasper Garber Hemoglobin (Bld) [Mass/Vol] 11.8 g/dL Critically low 12.0-16.0 [facility] Comment on above: Performed By: #### JOANNE MALDONADOICRO #### [facility] [address] [place] [address] Dr. Gasper Garber IG # 0.02 10e3/ul Normal 0.00-0.03 [facility] Comment on above: Performed By: #### Bernice HERNDON UMICRO #### [facility] [address] [place] [address] Dr. Gasper Garber IG % 0.2 % Normal 0.0-0.5 [facility] Comment on above: Performed By: #### Bernice HERNDON UMICRO #### [facility] [address] [place] [address] Dr. Gasper Garber LYMPH # 1.2 103/ul Normal 1.2-3.8 [facility] Comment on above: Performed By: #### Bernice HERNDON UMICRO #### [facility] [address] [place] [address] Dr. Gasper Garber Lymphocytes/100 WBC (Bld) 14.2 % Critically low 20.5-60.0 [facility] Comment on above: Performed By: #### Bernice HERNDON UMICRO #### [facility] [address] [place] [address] Dr. Gasper Garber MANUAL DIFF REQ NO Normal [facility] Comment on above: Performed By: #### Berince HERNDON UMICRO #### [facility] [address] [place] [address] Dr. Gasper Garber MCH (RBC) [Entitic mass] 30.6 pg Normal 26.7-34.0 [facility] Comment on above: Performed By: #### Bernice HERNDON, UMICRO #### [facility] [address] [place] [address] Dr. Gasper Garber MCHC (RBC) [Mass/Vol] 32.7 g/dL Normal 29.9-35.2 [facility] Comment on above: Performed By: #### TONI MALDONADORO #### [facility] [address] [place] [address] Dr. Gasper Garber MCV (RBC) [Entitic vol] 93.8 fL Normal 81.0-99.0 [facility] Comment on above: Performed By: #### Bernice HERNDON UMICRO #### [facility] [address] [place] [address] Dr. Gasper Garber MONO # 1.0 103/ul Critically high 0.3-0.8 [facility] Comment on above: Performed By: #### Bernice HERNDON UMICRO #### [facility] [address] [place] [address] Dr. Gasper Garber Monocytes/100 WBC (Bld) 12.3 % Critically high 1.7-12.0 [facility] Comment on above: Performed By: #### TONI MALDONADORO #### [facility] [address] [place] [address] Dr. Gasper Garber NEUT # 5.9 103/ul Normal 1.4-6.5 [facility] Comment on above: Performed By: #### TONI MALDONADORO #### [facility] [address] [place] [address] Dr. Gasper Garber Neutrophils/100 WBC (Bld) 71.0 % Normal 43.0-75.0 [facility] Comment on above: Performed By: #### JOANNE MALDONADOICRO #### [facility] [address] [place] [address] Dr. Gasper Garber Platelet mean volume (Bld) [Entitic vol] 11.3 fL Normal 9.5-13.5 [facility] Comment on above: Performed By: #### Bernice HERNDON UMICRO #### [facility] [address] [place] [address] Dr. Gasper Garber PLT 237 103/ul Normal 150-450 [facility] Comment on above: Performed By: #### TONI MALDONADORO #### [facility] [address] [place] [address] Dr. Gasper Garber RBC 3.85 106/ul Critically low 4.20-5.40 [facility] Comment on above: Performed By: #### TONI MALDONADORO #### [facility] [address] [place] [address] Dr. Gasper Garber WBC 8.4 103/ul Normal 4.0-11.0 [facility] Comment on above: Performed By: #### Bernice HERNDON UMICRO #### [facility] [address] [place] [address] Dr. Gasper Garber MAGNESIUMon 05-15-2022 Magnesium [Mass/Vol] 2.0 mg/dL Normal 1.8-2.4 [facility] Comment on above: Performed By: #### Bernice HERNDON UMICRO #### [facility] [address] [place] [address] Dr. Gasper Garber PROF 14(COMP METB)on 023 Albumin [Mass/Vol] 3.4 g/dL Normal 3.4-5.0 [facility] Comment on above: Performed By: #### TONI MALDONADORO #### [facility] [address] [place] [address] Dr. Gasper aGrber Albumin/Globulin [Mass ratio] 1.0 {ratio} Normal [facility] Comment on above: Performed By: #### Bernice HERNDON UMICRO #### [facility] [address] [place] [address] Dr. Gasper Garber ALP [Catalytic activity/Vol] 70 U/L Normal 46-116 [facility] Comment on above: Performed By: #### Bernice HERNDON UMICRO #### [facility] [address] [place] [address] Dr. Gasper Garber ALT [Catalytic activity/Vol] 23 U/L Normal 14-59 [facility] Comment on above: Performed By: #### Bernice HERNDON UMICRO #### [facility] [address] [place] [address] Dr. Gasper Garber Anion gap [Moles/Vol] 12.2 mmol/L Normal [facility] Comment on above: Performed By: #### TONI MALDONADORO #### [facility] [address] [address] [address] Gasper Garber AST [Catalytic activity/Vol] 13 U/L Critically low 15-37 [facility] Comment on above: Performed By: #### TONI MALDONADORO #### [facility] [address] [place] [address] Dr. Gasper Garber Bilirubin [Mass/Vol] 0.6 mg/dL Normal 0.2-1.0 [facility] Comment on above: Performed By: #### TONI MALDONADORO #### [facility] [address] [place] [address] Dr. Gasper Garber Calcium [Mass/Vol] 9.6 mg/dL Normal 8.5-10.1 [facility] Comment on above: Performed By: #### TONI MALDONADORO #### [facility] [address] [place] [address] Dr. Gasper Garber Chloride [Moles/Vol] 106 mmol/L Normal 98-107 [facility] Comment on above: Performed By: #### TONI MALDONADORO #### [facility] [address] [place] [address] Dr. Gasper Garber CO2 [Moles/Vol] 29.0 mmol/L Normal 21.0-32.0 [facility] Comment on above: Performed By: #### TONI MALDONADORO #### [facility] [address] [place] [address] Dr. Gasper Garber Creatinine [Mass/Vol] 1.46 mg/dL Critically high 0.55-1.02 [facility] Comment on above: Performed By: #### TONI MALDONADORO #### [facility] [address] [place] [address] Dr. Gasper Garber EGFR-AF [place] 42 mL/min/1.73m2 Critically low >=60 [facility] Comment on above: Performed By: #### TONI MALDONADORO #### [facility] [address] [place], [place] [id number] Dr. Gasper Garber EGFR-NON AF [place] 35 mL/min/1.73m2 Critically low >=60 [facility] Comment on above: Performed By: #### TONI MALDONADORO #### [facility] [address] [place] [address] Dr. Gasper Garber Globulin (S) [Mass/Vol] 3.3 g/dL Normal [facility] Comment on above: Performed By: #### JOANNE MALDONADOICRO #### [facility] [address] [place] [address] Dr. Gasper Garber Glucose [Mass/Vol] 154 mg/dL Critically high 74-106 [facility] Comment on above: Performed By: #### Bernice HERNDON UMDINORAHRO #### [facility] [address] [place] [address] Dr. Gasper Garber Potassium [Moles/Vol] 3.2 mmol/L Critically low 3.5-5.1 [facility] Comment on above: Performed By: #### TONI MALDONADORO #### [facility] [address] [place] [address] Dr. Gasper Garber Protein [Mass/Vol] 6.7 g/dL Normal 6.4-8.2 [facility] Comment on above: Performed By: #### Bernice HERNDON UMICRO #### [facility] [address] [place] [address] Dr. Gasper Garber Sodium [Moles/Vol] 144 mmol/L Normal 136-145 [facility] Comment on above: Performed By: #### Bernice HERNDON UMICRO #### [facility] [address] [place] [address] Dr. Gasper Garber Urea nitrogen [Mass/Vol] 28.0 mg/dL Critically high 7.0-18.0 [facility] Comment on above: Performed By: #### Bernice HERNDON, UMICRO #### [facility] [address] [place] [address] Dr. Gasper Garber Urea nitrogen/Creatinine [Mass ratio] 19.2 mg/mg Normal [facility] Comment on above: Performed By: #### E RURBERNIE #### [facility] [address] [address] [address] Gasper Garber BNPon 05-14-2022 Natriuretic peptide B (Bld) [Mass/Vol] 1231.0 pg/mL Critically high <=900.0 [facility] Comment on above: Performed By: #### L ACT #### [facility] [address] [place] [address] Dr. Gasper Garber CARDIAC SEKOU ADMITon 023 CK [Catalytic activity/Vol] 30 U/L Normal 26-192 [facility] Comment on above: Performed By: #### L ACT #### [facility] [address] [place] [address] Dr. Gasper Garber CK.MB [Mass/Vol] 0.54 ng/mL Normal <=3.60 [facility] Comment on above: Performed By: #### L ACT #### [facility] [address] [place] [address] Dr. Gasper Garber HSTROP 9.8 pg/mL Normal 4.0-51.3 [facility] Comment on above: Result Comment: CUT- OFF POINTS HAVE BEEN ESTABLISHED BASED ON THE FOURTH UNIVERSAL DEFINITIONS OF MYOCARDIAL INFARCTION. THE UPPER REFERENCE LIMIT (URL) OF TROPONIN, DEFINED THE 99TH PERCENTILE OF cTnI DISTRIBUTION IN A REFERENCE POPULATION, HAS BEEN CONFIRMED THE DECISION THRESHOLD FOR [place] DIAGNOSIS. Performed By: #### L ACT #### [facility] [address] [place] [address] Dr. Gasper Garber JUSTIN 62 ng/mL Normal 9-82 [facility] Comment on above: Performed By: #### L ACT #### [facility] [address] [place] [address] Dr. Gasper Garber CBC AUTO DIFFon 05-14-2022 BASO # 0.0 103/ul Normal 0.0-0.1 [facility] Comment on above: Performed By: #### U ARMICR #### [facility] [address] [place] [address] Dr. Gasper Garber Basophils/100 WBC (Bld) 0.4 % Normal 0.2-2.0 [facility] Comment on above: Performed By: #### U ARMICR #### [facility] [address] [place] [address] Dr. Gasper Garber EO # 0.2 103/ul Normal 0.0-0.7 [facility] Comment on above: Performed By: #### U ARMICR #### [facility] [address] [place] [address] Dr. Gasper Garber Eosinophils/100 WBC (Bld) 2.4 % Normal 0.9-7.0 [facility] Comment on above: Performed By: #### U ARMICR #### [facility] [address] [place] [address] Dr. Gasper Garber Erythrocyte distribution width (RBC) [Ratio] 12.7 % Normal 11.0-15.0 [facility] Comment on above: Performed By: #### U ARMICR #### [facility] [address] [place] [address] Dr. Gasper Garber Hematocrit (Bld) [Volume fraction] 36.4 % Normal 36.0-48.0 [facility] Comment on above: Performed By: #### U ARMICR #### [facility] [address] [place] [address] Dr. Gasper Garber Hemoglobin (Bld) [Mass/Vol] 11.7 g/dL Critically low 12.0-16.0 [facility] Comment on above: Performed By: #### U ARMICR #### [facility] [address] [place] [address] Dr. Gasper Garber IG # 0.03 10e3/ul Normal 0.00-0.03 [facility] Comment on above: Performed By: #### U ARMICR #### [facility] [address] [place] [address] Dr. Gasper Garber IG % 0.3 % Normal 0.0-0.5 [facility] Comment on above: Performed By: #### U ARMICR #### [facility] [address] [place] [address] Dr. Gasper Garber LYMPH # 1.9 103/ul Normal 1.2-3.8 [facility] Comment on above: Performed By: #### U ARMICR #### [facility] [address] [place] [address] Dr. Gasper Garber Lymphocytes/100 WBC (Bld) 20.2 % Critically low 20.5-60.0 [facility] Comment on above: Performed By: #### U ARMICR #### [facility] [address] [place] [address] Dr. Gasper Garber MANUAL DIFF REQ NO Normal [facility] Comment on above: Performed By: #### U ARMICR #### [facility] [address] [place] [address] Dr. Gasper Garber MCH (RBC) [Entitic mass] 30.8 pg Normal 26.7-34.0 [facility] Comment on above: Performed By: #### U ARMICR #### [facility] [address] [place] [address] Dr. Gasper Garber MCHC (RBC) [Mass/Vol] 32.1 g/dL Normal 29.9-35.2 [facility] Comment on above: Performed By: #### U ARMICR #### [facility] [address] [place] [address] Dr. Gasper Garber MCV (RBC) [Entitic vol] 95.8 fL Normal 81.0-99.0 [facility] Comment on above: Performed By: #### U ARMICR #### [facility] [address] [place] [address] Dr. Gasper Garber MONO # 1.2 103/ul Critically high 0.3-0.8 [facility] Comment on above: Performed By: #### U ARMICR #### [facility] [address] [place] [address] Dr. Gasper Garber Monocytes/100 WBC (Bld) 13.0 % Critically high 1.7-12.0 [facility] Comment on above: Performed By: #### U ARMICR #### [facility] [address] [address] [address] Gasper Garber NEUT # 5.8 103/ul Normal 1.4-6.5 [facility] Comment on above: Performed By: #### U ARMICR #### [facility] [address] [place] [address] Dr. Gasper Garber Neutrophils/100 WBC (Bld) 63.7 % Normal 43.0-75.0 [facility] Comment on above: Performed By: #### U ARMICR #### [facility] [address] [place] [address] Dr. Gasper Garber Platelet mean volume (Bld) [Entitic vol] 10.0 fL Normal 9.5-13.5 [facility] Comment on above: Performed By: #### U ARMICR #### [facility] [address] [place] [address] Dr. Gasper Garber PLT 251 103/ul Normal 150-450 [facility] Comment on above: Performed By: #### U ARMICR #### [facility] [address] [place] [address] Dr. Gasper Garber RBC 3.80 106/ul Critically low 4.20-5.40 [facility] Comment on above: Performed By: #### U ARMICR #### [facility] [address] [place] [address] Dr. Gasper Garber WBC 9.2 103/ul Normal 4.0-11.0 [facility] Comment on above: Performed By: #### U ARMICR #### [facility] [address] [place] [address] Dr. Gasper Garber BASO # 0.0 103/ul Normal 0.0-0.1 [facility] Comment on above: Performed By: #### U ARMICR #### [facility] [address] [place] [address] Dr. Gasper Garber Basophils/100 WBC (Bld) 0.0 % Critically low 0.2-2.0 [facility] Comment on above: Performed By: #### U ARMICR #### [facility] [address] [address] [address] Gasper Garber EO # 0.0 103/ul Normal 0.0-0.7 [facility] Comment on above: Performed By: #### U ARMICR #### [facility] [address] [place] [address] Dr. Gasper Garber Eosinophils/100 WBC (Bld) 0.0 % Critically low 0.9-7.0 [facility] Comment on above: Performed By: #### U ARMICR #### [facility] [address] [place] [address] Dr. Gasper Garber Erythrocyte distribution width (RBC) [Ratio] 12.1 % Normal 11.0-15.0 [facility] Comment on above: Performed By: #### U ARMICR #### [facility] [address] [place] [address] Dr. Gasper Garber Hematocrit (Bld) [Volume fraction] 37.9 % Normal 36.0-48.0 [facility] Comment on above: Performed By: #### U ARMICR #### [facility] [address] [place] [address] Dr. Gasper Garber Hemoglobin (Bld) [Mass/Vol] 12.2 g/dL Normal 12.0-16.0 [facility] Comment on above: Performed By: #### U ARMICR #### [facility] [address] [place] [address] Dr. Gasper Garber IG # 0.00 10e3/ul Normal 0.00-0.03 [facility] Comment on above: Performed By: #### U ARMICR #### [facility] [address] [place] [address] Dr. Gasper Garber IG % 0.0 % Normal 0.0-0.5 [facility] Comment on above: Performed By: #### U ARMICR #### [facility] [address] [place] [address] Dr. Gasper Garber LYMPH # 1.3 103/ul Normal 1.2-3.8 [facility] Comment on above: Performed By: #### U ARMICR #### [facility] [address] [address] [address] Gasper Garber Lymphocytes/100 WBC (Bld) 18.6 % Critically low 20.5-60.0 [facility] Comment on above: Performed By: #### U ARMICR #### [facility] [address] [place] [address] Dr. Gasper Garber MANUAL DIFF REQ NO Normal [facility] Comment on above: Performed By: #### U ARMICR #### [facility] [address] [place] [address] Dr. Gasper Garber MCH (RBC) [Entitic mass] 30.7 pg Normal 26.7-34.0 [facility] Comment on above: Performed By: #### U ARMICR #### [facility] [address] [place] [address] Dr. Gasper Garber MCHC (RBC) [Mass/Vol] 32.2 g/dL Normal 29.9-35.2 [facility] Comment on above: Performed By: #### U ARMICR #### [facility] [address] [place] [address] Dr. Gasper Garber MCV (RBC) [Entitic vol] 95.5 fL Normal 81.0-99.0 [facility] Comment on above: Performed By: #### U ARMICR #### [facility] [address] [place] [address] Dr. Gasper Garber MONO # 0.8 103/ul Normal 0.3-0.8 [facility] Comment on above: Performed By: #### U ARMICR #### [facility] [address] [place] [address] Dr. Gasper Garber Monocytes/100 WBC (Bld) 11.6 % Normal 1.7-12.0 [facility] Comment on above: Performed By: #### U ARMICR #### [facility] [address] [place] [address] Dr. Gasper Garber NEUT # 5.0 103/ul Normal 1.4-6.5 [facility] Comment on above: Performed By: #### U ARMICR #### [facility] [address] [address] [address] Gasper Garber Neutrophils/100 WBC (Bld) 69.8 % Normal 43.0-75.0 [facility] Comment on above: Performed By: #### U ARMICR #### [facility] [address] [address] [address] Gasper Garber Platelet mean volume (Bld) [Entitic vol] 9.8 fL Normal 9.5-13.5 [facility] Comment on above: Performed By: #### U ARMICR #### [facility] [address] [address] [address] Gasper Garber PLT 258 103/ul Normal 150-450 [facility] Comment on above: Performed By: #### U ARMICR #### [facility] [address] [address] [address] Gasper Garber RBC 3.97 106/ul Critically low 4.20-5.40 [facility] Comment on above: Performed By: #### U ARMICR #### [facility] [address] [address] [address] Gasper Garber WBC 7.1 103/ul Normal 4.0-11.0 [facility] Comment on above: Performed By: #### U ARMICR #### [facility] [address] [address] [address] HEAD WO CONon 05-14-2022 CT HEAD WO CON EXAMINATION: CT HEAD WO CON, CT CSPINE WO CON HISTORY: UNSPECIFIED INJURY OF HEAD, INITIAL ENCOUNTER COMPARISON: CT brain 07/03/2018. TECHNIQUE: Axial CT scans through the head and cervical spine were obtained without IV contrast administration. Dose reduction techniques were achieved by using: automated exposure control and/or adjustment of mA and /or kV according to patient size and/or use of iterative reconstruction technique. CT BRAIN FINDINGS: There is no evidence of acute intracranial hemorrhage or abnormal extra-axial fluid collection. No mass effect or midline shift is seen. There is no evidence of large acute territorial infarction. There is no hydrocephalus. There is a supracerebellar CSF intensity cyst measuring 4 x 3.5 x 2.5 cm (AP x CC x TR), resulting mass effect on the superior cerebellum and elevates the tentorium cerebelli, likely represent arachnoid cyst. There is slight increase in size since 07/03/2018 (previously 3.6 x 2.3 x 2.1 cm). Mild to moderate enlarged ventricles and sulci, consistent with age appropriate cerebral atrophy. Patchy areas of low-attenuation are present in supratentorial white matter, likely represents chronic microvascular ischemia. No definite acute fracture is identified. Soft tissues are unremarkable. The visualized orbits show no abnormal mass. The visualized paranasal sinuses show no air-fluid level. Mastoid air cells are clear. IMPRESSION: No CT evidence of acute intracranial abnormality. If there is sufficient clinical concern for acute brain parenchymal pathology, consider MRI for further evaluation. 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 CT CERVICAL SPINE FINDINGS: No acute fracture or posttraumatic malalignment is seen. There are multilevel anterior spurring from C7-T1. Mild neural foraminal narrowing at C7-T1 level with bridging anterior osteophytes. Multilevel mild to moderate facet arthropathy. Mild neural foraminal narrowing at bilateral C3-4. The prevertebral soft tissue space appears normal. Visualized neck shows no adenopathy. Visualized lung apices are clear. There are atherosclerotic calcifications in bilateral carotid arteries. IMPRESSION: No acute fracture or posttraumatic malalignment. Mild cervical spondylosis. Electronically authenticated by: SAI UNLU Date: 2022-05-14 00:20 Normal [facility] Covid-19 PCR (CVDTB)on 04-20 SARS-CoV-2 (COVID-19) RNA ANA LUISA+probe Ql (Unsp spec) Not detected Normal NOT DETECTED [facility] Comment on above: Result Comment: When diagnostic testing is negative, the possibility of a false negative should be considered in the context of a patient's recent exposures and the presence of clinical signs and symptoms consistent with SARS-CoV-2. This test is not yet approved or cleared by the [place] FDA. When there are no FDA-approved or cleared tests available, and other criteria are met, FDA can make tests available under an emergency access mechanism called an Emergency Use Authorization (EUA). The EUA for this test is supported by the [place] of Health and Human Service's declaration that circumstances exist to justify the emergency use of in vitro diagnostics for the detection and/or diagnosis of the virus that causes COVID-19. This EUA will remain in effect for the duration of the COVID-19 declaration justifying emergency of IVDs, unless it is terminated or revoked by the FDA (after which the test may no longer be used). Performed By: #### L ACT #### [facility] [address] [place] [address] Dr. Gasper Garber ER URINE PROFILEon 3 Bilirubin Ql (U) Negative Normal NEGATIVE [facility] Comment on above: Performed By: #### A CETON #### [facility] [address] [place] [address] Dr. Gasper Garber Clarity (U) CLEAR Normal CLEAR [facility] Comment on above: Performed By: #### A CETON #### [facility] [address] [place] [address] Dr. Gasper Garber Color (U) LT. YELLOW Normal YELLOW [facility] Comment on above: Performed By: #### A CETON #### [facility] [address] [place] [address] Dr. Gasper Garber ERUAHD A micrscopic examina tion will be performed if indicated. Normal [facility] Comment on above: Performed By: #### A CETON #### [facility] [address] [place] [address] Dr. Gasper Garber Glucose Ql (U) Negative Normal NEGATIVE [facility] Comment on above: Performed By: #### A CETON #### [facility] [address] [place] [address] Dr. Gasper Garber Hemoglobin Ql (U) Negative Normal NEGATIVE [facility] Comment on above: Performed By: #### A CETON #### [facility] [address] [place] [address] Dr. Gasper Garber Ketones Ql (U) Negative Normal NEGATIVE [facility] Comment on above: Performed By: #### A CETON #### [facility] [address] [place] [address] Dr. Gasper Garber LEUKOCYTES Negative Normal NEGATIVE [facility] Comment on above: Performed By: #### A CETON #### [facility] [address] [place] [address] Dr. Gasper Garber Nitrite Ql (U) Positive Abnormal NEGATIVE [facility] Comment on above: Performed By: #### A CETON #### [facility] [address] [place] [address] Dr. Gasper Garber pH (U) 7.0 [pH] Normal 5-9 [facility] Comment on above: Performed By: #### A CETON #### [facility] [address] [place] [address] Dr. Gasper Garber SPEC GRAVITY <=1.005 Abnormal 1.005-<=1.0 25 [facility] Comment on above: Performed By: #### A CETON #### [facility] [address] [place] [address] Dr. Gasper Garber UA PROTEIN Negative Normal NEGATIVE/ TRACE [facility] Comment on above: Performed By: #### A CETON #### [facility] [address] [place] [address] Dr. Gasper Garber UR MICRO IND INDICATED Normal [facility] Comment on above: Performed By: #### A CETON #### [facility] [address] [place] [address] Dr. Gasper Garber Urobilinogen Qn (U) 0.2 {Kaushik'U}/dL Normal 0.2 - 1. 0 [facility] Comment on above: Performed By: #### A CETON #### [facility] [address] [place] [address] Dr. Gasper Garber MAGNESIUMon 05-14-2022 Magnesium [Mass/Vol] 2.4 mg/dL Normal 1.8-2.4 [facility] Comment on above: Performed By: #### E BERNIE HERNDON #### [facility] [address] [place] [address] Dr. Gasper Garber PROF 14(COMP METB)on 023 Albumin [Mass/Vol] 3.5 g/dL Normal 3.4-5.0 [facility] Comment on above: Performed By: #### Bernice HERNDON UMICRO #### [facility] [address] [place] [address] Dr. Gasper Garber Albumin/Globulin [Mass ratio] 1.0 {ratio} Normal [facility] Comment on above: Performed By: #### Bernice HERNDON UMICRO #### [facility] [address] [place] [address] Dr. Gasper Garber ALP [Catalytic activity/Vol] 82 U/L Normal 46-116 [facility] Comment on above: Performed By: #### Bernice HERNDON UMICRO #### [facility] [address] [place] [address] Dr. Gasper Garber ALT [Catalytic activity/Vol] 22 U/L Normal 14-59 [facility] Comment on above: Performed By: #### Bernice HERNDON UMICRO #### [facility] [address] [place] [address] Dr. Gasper Garber Anion gap [Moles/Vol] 11.1 mmol/L Normal [facility] Comment on above: Performed By: #### Bernice HERNDON UMICRO #### [facility] [address] [place] [address] Dr. Gasper Garber AST [Catalytic activity/Vol] 14 U/L Critically low 15-37 [facility] Comment on above: Performed By: #### Bernice HERNDON UMICRO #### [facility] [address] [place] [address] Dr. Gasper Garber Bilirubin [Mass/Vol] 0.5 mg/dL Normal 0.2-1.0 [facility] Comment on above: Performed By: #### Bernice HERNDON UMICRO #### [facility] [address] [place] [address] Dr. Gasper Garber Calcium [Mass/Vol] 9.8 mg/dL Normal 8.5-10.1 [facility] Comment on above: Performed By: #### Bernice HERNDON, UMICRO #### [facility] [address] [place] [address] Dr. Gasper Garber Chloride [Moles/Vol] 99 mmol/L Normal 98-107 [facility] Comment on above: Performed By: #### TONI MALDONADORO #### [facility] [address] [place] [address] Dr. Gasper Garber CO2 [Moles/Vol] 30.5 mmol/L Normal 21.0-32.0 [facility] Comment on above: Performed By: #### TONI MALDONADORO #### [facility] [address] [place] [address] Dr. Gasper Garber Creatinine [Mass/Vol] 1.75 mg/dL Critically high 0.55-1.02 [facility] Comment on above: Performed By: #### TONI MALDONADORO #### [facility] [address] [place] [address] Dr. Gasper Garber EGFR-AF [place] 34 mL/min/1.73m2 Critically low >=60 [facility] Comment on above: Performed By: #### TONI MALDONADORO #### [facility] [address] [place] [address] Dr. Gasper Garber EGFR-NON AF [place] 28 mL/min/1.73m2 Critically low >=60 [facility] Comment on above: Performed By: #### TONI MALDNOADORO #### [facility] [address] [place] [address] Dr. Gasper Garber Globulin (S) [Mass/Vol] 3.4 g/dL Normal [facility] Comment on above: Performed By: #### OTNI MALDONADORO #### [facility] [address] [place] [address] Dr. Gasper Garber Glucose [Mass/Vol] 154 mg/dL Critically high 74-106 [facility] Comment on above: Performed By: #### Bernice HERNDON UMICRO #### [facility] [address] [place] [address] Dr. Gasper Garber Potassium [Moles/Vol] 3.6 mmol/L Normal 3.5-5.1 [facility] Comment on above: Performed By: #### Bernice COPELANDR, JOANNEICRO #### [facility] [address] [place] [address] Dr. Gasper Garber Protein [Mass/Vol] 6.9 g/dL Normal 6.4-8.2 [facility] Comment on above: Performed By: #### E RUR, UMICRO #### [facility] [address] [place] [address] Dr. Gasper Garber Sodium [Moles/Vol] 137 mmol/L Normal 136-145 [facility] Comment on above: Performed By: #### E RUR, UMICRO #### [facility] [address] [place] [address] Dr. Gasper Garber Urea nitrogen [Mass/Vol] 35.0 mg/dL Critically high 7.0-18.0 [facility] Comment on above: Performed By: #### E MINRJOANNEICRO #### [facility] [address] [place] [address] Dr. Gasper Garber Urea nitrogen/Creatinine [Mass ratio] 20.0 mg/mg Normal [facility] Comment on above: Performed By: #### E JOANNE HERNDONICRO #### [facility] [address] [place] [address] Dr. Gasper Garber Albumin [Mass/Vol] 3.7 g/dL Normal 3.4-5.0 [facility] Comment on above: Performed By: #### L ACT #### [facility] [address] [place] [address] Dr. Gasper Garber Albumin/Globulin [Mass ratio] 1.1 {ratio} Normal [facility] Comment on above: Performed By: #### L ACT #### [facility] [address] [place] [address] Dr. Gasper Garber ALP [Catalytic activity/Vol] 84 U/L Normal 46-116 [facility] Comment on above: Performed By: #### L ACT #### [facility] [address] [place] [address] Dr. Gasper Garber ALT [Catalytic activity/Vol] 26 U/L Normal 14-59 [facility] Comment on above: Performed By: #### L ACT #### [facility] [address] [address] [address] Gasper Garber Anion gap [Moles/Vol] 8.5 mmol/L Normal [facility] Comment on above: Performed By: #### L ACT #### [facility] [address] [address] [address] Gasper Garber AST [Catalytic activity/Vol] 16 U/L Normal 15-37 [facility] Comment on above: Performed By: #### L ACT #### [facility] [address] [address] [address] Gasper Garber Bilirubin [Mass/Vol] 0.4 mg/dL Normal 0.2-1.0 [facility] Comment on above: Performed By: #### L ACT #### [facility] [address] [place] [address] Dr. Gasper Garber Calcium [Mass/Vol] 9.8 mg/dL Normal 8.5-10.1 [facility] Comment on above: Performed By: #### L ACT #### [facility] [address] [address] [address] Gasper Garber Chloride [Moles/Vol] 99 mmol/L Normal 98-107 [facility] Comment on above: Performed By: #### L ACT #### [facility] [address] [address] [address] Gasper Garber CO2 [Moles/Vol] 32.3 mmol/L Critically high 21.0-32.0 [facility] Comment on above: Performed By: #### L ACT #### [facility] [address] [address] [address] Gasper Garber Creatinine [Mass/Vol] 1.84 mg/dL Critically high 0.55-1.02 [facility] Comment on above: Performed By: #### L ACT #### [facility] [address] [address] [address] Gasper Garber EGFR-AF [place] 33 mL/min/1.73m2 Critically low >=60 [facility] Comment on above: Performed By: #### L ACT #### [facility] [address] [address] [address] Gasper Garber EGFR-NON AF [place] 27 mL/min/1.73m2 Critically low >=60 [facility] Comment on above: Performed By: #### L ACT #### [facility] [address] [address] [address] Gasper Garber Globulin (S) [Mass/Vol] 3.4 g/dL Normal [facility] Comment on above: Performed By: #### L ACT #### [facility] [address] [address] [address] Gasper Garber Glucose [Mass/Vol] 180 mg/dL Critically high 74-106 [facility] Comment on above: Performed By: #### L ACT #### [facility] [address] [address] [address] Gasper Garber Potassium [Moles/Vol] 3.8 mmol/L Normal 3.5-5.1 [facility] Comment on above: Performed By: #### L ACT #### [facility] [address] [address] [address] Gasper Garber Protein [Mass/Vol] 7.1 g/dL Normal 6.4-8.2 [facility] Comment on above: Performed By: #### L ACT #### [facility] [address] [address] [address] Gasper Garber Sodium [Moles/Vol] 136 mmol/L Normal 136-145 [facility] Comment on above: Performed By: #### L ACT #### [facility] [address] [address] [address] Gasper Garber Urea nitrogen [Mass/Vol] 35.0 mg/dL Critically high 7.0-18.0 [facility] Comment on above: Performed By: #### L ACT #### [facility] [address] [address] [address] Gasper Garber Urea nitrogen/Creatinine [Mass ratio] 19.0 mg/mg Normal [facility] Comment on above: Performed By: #### L ACT #### [facility] [address] [place] [address] Dr. Gasper Garber PROTIMEon 05-14-2022 INR Coag (PPP) [Relative time] 0.95 {INR} Normal [facility] Comment on above: Performed By: #### U RCX #### [facility] [address] [place] [address] Dr. Gasper Garber INR GUIDELINES SEE BELOW Normal [facility] Comment on above: Result Comment: JESUS RED INR: 2.0 - 3.0 CONDITIONS NOT LISTED BELOW 2.5 - 3.5 FOR PROSTHETIC HEART VALVE REPLACEMENT 2.5 - 3.5 RECURRENT THROMBOSIS Performed By: #### U RCX #### [facility] [address] [place] [address] Dr. Gasper Garber PT Coag (PPP) [Time] 10.1 s Normal 9.0-11.6 [facility] Comment on above: Performed By: #### U RCX #### [facility] [address] [place] [address] Dr. Gasper Garber PTTon 05-14-2022 aPTT Coag (Bld) [Time] 24.7 s Normal 22.3-36.2 [facility] Comment on above: Performed By: #### BERNIE MALDONADO #### [facility] [address] [place] [address] Dr. Gasper Garber URINE MICROSCOPIC ONLYon BACTERIA LARGE Abnormal NONE SEEN [facility] Comment on above: Performed By: #### U ARMICR #### [facility] [address] [place] [address] Dr. Gasper Garber Bacteria identified Cx Nom (U) INDICATED Normal [facility] Comment on above: Performed By: #### U ARMICR #### [facility] [address] [place] [address] Dr. Gasper Garber CAST NONE SEEN Normal NONE SEEN [facility] Comment on above: Performed By: #### U ARMICR #### [facility] [address] [place] [address] Dr. Gasper Garber Crystals LM Nom (Urine sed) NONE SEEN Normal NONE SEEN [facility] Comment on above: Performed By: #### U ARMICR #### [facility] [address] [address] [address] Gasper Garber Epithelial cells LM Ql (Urine sed) MANY Abnormal NONE SEEN /RARE [facility] Comment on above: Performed By: #### U ARMICR #### [facility] [address] [address] [address] Gasper Garber MUCOUS NONE SEEN Normal NONE SEEN [facility] Comment on above: Performed By: #### U ARMICR #### [facility] [address] [address] [address] Gasper Garber RBC 0-2 Normal 0-2 [facility] Comment on above: Performed By: #### U ARMICR #### [facility] [address] [place] [address] Dr. Gasper Garber WBC 0-2 Abnormal NONE SEEN [facility] Comment on above: Performed By: #### U ARMICR #### [facility] [address] [place] [address] Dr. Gasper Garber XR CHEST 1 Von 05-14-2022 XR CHEST 1 V EXAM: XR CHEST 1 V HISTORY: UNSPECIFIED INJURY OF HEAD, INITIAL ENCOUNTER COMPARISON: 06/30/2021 TECHNIQUE: AP view of the chest FINDINGS: There is no focal airspace consolidation or acute infiltrate. The cardiomediastinal silhouette is not enlarged. Mild aortic arch calcifications. No evidence of pleural effusion or pneumothorax are identified. No acute osseous abnormality. IMPRESSION: No acute cardiopulmonary process. Electronically authenticated by: SAI ORTA Date: 2022-05-14 00:19 Normal [facility] XR LSPINE 2_3 VIEWSon 2022 XR LSPINE 2_3 VIEWS EXAMINATION: XR LSPI NE 2_3 VIEWS HISTORY: Pain in thoracic spine COMPARISON: No relevant comparison available. FINDINGS: BONES: Rotatory dextroscoliosis centered at L1. Moderate spondylosis and facet osteoarthropathy DISC SPACES: Multilevel narrowing most significant at L1-L2 PARASPINOUS: Negative. No paraspinous abnormality is seen. OTHER: Extensive vascular calcifications IMPRESSION: Moderate degenerative changes with rotatory scoliosis Electronically authenticated by: CHRYSTAL LAUREANO Date: 2022-05-05 15:30 Normal [facility] GLYCOHEMOGLOBIN A1Con 2021 ADA RECOMMENDATION SEE BELOW Normal [facility] Comment on above: Result Comment: ADA RECOMMENDED LIMIT 4.0 - 6.0 ADA THERAPEUTIC TARGET < 7.0 ACTION SUGGESTED > 7.0 Performed By: #### E BERNIE HERNDON #### [facility] [address] [address] [address] Gasper Garber Glucose [Mass/Vol] 169 mg/dL Normal [facility] Comment on above: Performed By: #### E YANICK, BERNIE #### [facility] [address] [address] [address] Gapser Garber HbA1c (Bld) [Mass fraction] 7.5 % Critically high 4.5-6.2 [facility] Comment on above: Performed By: #### Bernice HERNDON, BERNIE #### [facility] [address] [place] [address] Dr. Gasper Garber NM GASTRIC EMPTYon 2 NM GASTRIC EMPTY NUCLEAR MEDICINE GAS TRIC EMPTYING SCAN HISTORY: Early satiety. COMPARISON: None. TECHNIQUE: The patient ingested a meal of eggs labeled with 1.0 mCi of technetium-99 sulfur colloid and images were performed of the stomach over 4 hours. Gastric retention was calculated. FINDINGS: There is normal clearance of activity from the stomach into the small bowel. At one hour, there was 63% gastric retention. The normal range is 30% to 90%. At two hours, there was 47% gastric retention. The normal range 0% to 60%. At four hours, there was 4% gastric retention. The normal range 0% to 10%. IMPRESSION: Normal gastric emptying. Electronically authenticated by: NASRIN CHIU Date: 2021-09-09 13:23 Normal [facility] ACETONE SERUMon 08-31-2021 ACETONE Negative Normal NEGATIVE [facility] Comment on above: Performed By: #### A CETON #### [facility] [address] [place] [address] Dr. Gasper Garber CBC AUTO DIFFon 08-31-2021 BASO # 0.0 103/ul Normal 0.0-0.1 [facility] Comment on above: Performed By: #### U ARMICR #### [facility] [address] [place] [address] Dr. Gasper Garber Basophils/100 WBC (Bld) 0.5 % Normal 0.2-2.0 [facility] Comment on above: Performed By: #### U ARMICR #### [facility] [address] [place] [address] Dr. Gasper Garber EO # 0.2 103/ul Normal 0.0-0.7 [facility] Comment on above: Performed By: #### U ARMICR #### [facility] [address] [place] [address] Dr. Gasper Garber Eosinophils/100 WBC (Bld) 1.9 % Normal 0.9-7.0 [facility] Comment on above: Performed By: #### U ARMICR #### [facility] [address] [place] [address] Dr. Gasper Garber Erythrocyte distribution width (RBC) [Ratio] 12.8 % Normal 11.0-15.0 [facility] Comment on above: Performed By: #### U ARMICR #### [facility] [address] [place] [address] Dr. Gasper Garber Hematocrit (Bld) [Volume fraction] 36.2 % Normal 36.0-48.0 [facility] Comment on above: Performed By: #### U ARMICR #### [facility] [address] [place] [address] Dr. Gasper Garber Hemoglobin (Bld) [Mass/Vol] 11.4 g/dL Critically low 12.0-16.0 [facility] Comment on above: Performed By: #### U ARMICR #### [facility] [address] [place] [address] Dr. Gasper Garber IG # 0.03 10e3/ul Normal 0.00-0.03 [facility] Comment on above: Performed By: #### U ARMICR #### [facility] [address] [place] [address] Dr. Gasper Garber IG % 0.4 % Normal 0.0-0.5 [facility] Comment on above: Performed By: #### U ARMICR #### [facility] [address] [place] [address] Dr. Gasper Garber LYMPH # 1.3 103/ul Normal 1.2-3.8 [facility] Comment on above: Performed By: #### U ARMICR #### [facility] [address] [place] [address] Dr. Gasper Garber Lymphocytes/100 WBC (Bld) 15.2 % Critically low 20.5-60.0 [facility] Comment on above: Performed By: #### U ARMICR #### [facility] [address] [place] [address] Dr. Gasper Garber MANUAL DIFF REQ NO Normal [facility] Comment on above: Performed By: #### U ARMICR #### [facility] [address] [place] [address] Dr. Gasper Garber MCH (RBC) [Entitic mass] 30.6 pg Normal 26.7-34.0 [facility] Comment on above: Performed By: #### U ARMICR #### [facility] [address] [place] [address] Dr. Gasper Garber MCHC (RBC) [Mass/Vol] 31.5 g/dL Normal 29.9-35.2 [facility] Comment on above: Performed By: #### U ARMICR #### [facility] [address] [place] [address] Dr. Gasper Garber MCV (RBC) [Entitic vol] 97.1 fL Normal 81.0-99.0 [facility] Comment on above: Performed By: #### U ARMICR #### [facility] [address] [place] [address] Dr. Gasper Garber MONO # 0.8 103/ul Normal 0.3-0.8 [facility] Comment on above: Performed By: #### U ARMICR #### [facility] [address] [place] [address] Dr. Gasper Garber Monocytes/100 WBC (Bld) 9.8 % Normal 1.7-12.0 [facility] Comment on above: Performed By: #### U ARMICR #### [facility] [address] [place] [address] Dr. Gasper Garber NEUT # 6.1 103/ul Normal 1.4-6.5 [facility] Comment on above: Performed By: #### U ARMICR #### [facility] [address] [place] [address] Dr. Gasper Garber Neutrophils/100 WBC (Bld) 72.2 % Normal 43.0-75.0 [facility] Comment on above: Performed By: #### U ARMICR #### [facility] [address] [place] [address] Dr. Gasper Garber Platelet mean volume (Bld) [Entitic vol] 10.2 fL Normal 9.5-13.5 [facility] Comment on above: Performed By: #### U ARMICR #### [facility] [address] [place] [address] Dr. Gasper Garber PLT 249 103/ul Normal 150-450 [facility] Comment on above: Performed By: #### U ARMICR #### [facility] [address] [place] [address] Dr. Gasper Garber RBC 3.73 106/ul Critically low 4.20-5.40 [facility] Comment on above: Performed By: #### U ARMICR #### [facility] [address] [place] [address] Dr. Gasper Garber WBC 8.4 103/ul Normal 4.0-11.0 [facility] Comment on above: Performed By: #### U ARMICR #### [facility] [address] [place] [address] Dr. Gasper Garber CULTURE URINEon 08-31-2021 CULTURE URINE Culture Observations : HEAVY GROWTH OF MIXED GENITAL KADEEM. NO POTENTIAL PATHOGENS SEEN. Normal [facility] Comment on above: Performed By: #### A CETON #### [facility] [address] [place] [address] Dr. Gasper JENKINS URINE PROFILEon 2 Bilirubin Ql (U) SMALL Abnormal NEGATIVE [facility] Comment on above: Performed By: #### Bernice HERNDON UMICRO #### [facility] [address] [place] [address] Dr. Gasper Garber Clarity (U) CLOUDY Abnormal CLEAR [facility] Comment on above: Performed By: #### Bernice HERNDON UMICRO #### [facility] [address] [place] [address] Dr. Gasper Garber Color (U) YELLOW Normal YELLOW [facility] Comment on above: Performed By: #### Bernice HERNDON UMICRO #### [facility] [address] [place] [address] Dr. Gasper RIVAS A micrscopic examina tion will be performed if indicated. Normal [facility] Comment on above: Performed By: #### Bernice HERNDON UMICRO #### [facility] [address] [place] [address] Dr. Gasper Garber Glucose Ql (U) Negative Normal NEGATIVE [facility] Comment on above: Performed By: #### Bernice HERNDON UMICRO #### [facility] [address] [place] [address] Dr. Gasper Garber Hemoglobin Ql (U) Negative Normal NEGATIVE [facility] Comment on above: Performed By: #### Bernice HERNDON UMICRO #### [facility] [address] [place] [address] Dr. Gasper Garber Ketones Ql (U) Negative Normal NEGATIVE [facility] Comment on above: Performed By: #### Bernice HERNDON UMICRO #### [facility] [address] [place] [address] Dr. Gasper Garber LEUKOCYTES TRACE Abnormal NEGATIVE [facility] Comment on above: Performed By: #### Bernice HERNDON UMICRO #### [facility] [address] [place] [address] Dr. Gasper Garber Nitrite Ql (U) Negative Normal NEGATIVE [facility] Comment on above: Performed By: #### Bernice HERNDON UMICRO #### [facility] [address] [place] [address] Dr. Gasper Garber pH (U) 5.5 [pH] Normal 5-9 [facility] Comment on above: Performed By: #### Bernice HERNDON, UMICRO #### [facility] [address] [place] [address] Dr. Gasper Garber Protein (U) [Mass/Vol] 100 mg/dL Abnormal NEGATIVE/ TRACE [facility] Comment on above: Performed By: #### Bernice HERNDON, UMICRO #### [facility] [address] [place] [address] Dr. Gasper Garber SPEC GRAVITY >=1.030 Abnormal 1.005-<=1.0 25 [facility] Comment on above: Performed By: #### Bernice HERNDON UMICRO #### [facility] [address] [place] [address] Dr. Gasper Garber UR MICRO IND INDICATED Normal [facility] Comment on above: Performed By: #### Bernice HERNDON ICRO #### [facility] [address] [place] [address] Dr. Gasper Garber Urobilinogen Qn (U) 1.0 {Kaushik'U}/dL Normal 0.2 - 1. 0 [facility] Comment on above: Performed By: #### Bernice HERNDON UMICRO #### [facility] [address] [place] [address] Dr. Gasper Garber GI PANEL (PCR)on 08-31-2021 Adenovirus F 40/41 Not detected Normal NOT DETECTED [facility] Comment on above: Performed By: #### Bernice HERNDON UMICRO #### [facility] [address] [place] [address] Dr. Gasper Garber Astrovirus Not detected Normal NOT DETECTED [facility] Comment on above: Performed By: #### Bernice HERNDON, UMICRO #### [facility] [address] [place] [address] Dr. Gasper Garber C. Diff toxin A/B Not detected Normal NOT DETECTED [facility] Comment on above: Performed By: #### Bernice HERNDON UMICRO #### [facility] [address] [place] [address] Dr. Gasper Garber Campylobacter Not detected Normal NOT DETECTED [facility] Comment on above: Performed By: #### E YANICK UMICRO #### [facility] [address] [place] [address] Dr. Gasper Garber Cryptosporidium Not detected Normal NOT DETECTED [facility] Comment on above: Performed By: #### Bernice HERNDON UMICRO #### [facility] [address] [place] [address] Dr. Gasper Garber Cyclos. Cayetanensis Not detected Normal NOT DETECTED [facility] Comment on above: Performed By: #### Bernice HERNDON UMICRO #### [facility] [address] [place] [address] Dr. Gasper Garber E. Coli O157 Not Applicable Normal Not Applicable [facility] Comment on above: Performed By: #### Bernice HERNDON ICRO #### [facility] [address] [place] [address] Dr. Gasper Garber E. histolytica Not detected Normal NOT DETECTED [facility] Comment on above: Performed By: #### Bernice HERNDON ICRO #### [facility] [address] [place] [address] Dr. Gasper Garber EAEC Not detected Normal NOT DETECTED [facility] Comment on above: Performed By: #### Bernice HERNDON UMICRO #### [facility] [address] [place] [address] Dr. Gasper Garber EIEC Not detected Normal NOT DETECTED [facility] Comment on above: Performed By: #### Bernice HERNDON UMICRO #### [facility] [address] [place] [address] Dr. Gasper Garber EPEC Not detected Normal NOT DETECTED [facility] Comment on above: Performed By: #### Bernice HERNDON UMICRO #### [facility] [address] [place] [address] Dr. Gasper Garber ETEC Not detected Normal NOT DETECTED [facility] Comment on above: Performed By: #### Bernice HERNDON UMICRO #### [facility] [address] [place] [address] Dr. Gasper Martin Lambrosea Not detected Normal NOT DETECTED [facility] Comment on above: Performed By: #### Bernice HERNDON UMICRO #### [facility] [address] [place] [address] Dr. Gasper LOPEZ CONTROLS PASSED Normal [facility] Comment on above: Performed By: #### Bernice HERNDON UMICRO #### [facility] [address] [address] [address] Gasper CALABRESE HEADER GI PANEL BACTERIA Normal [facility] Comment on above: Performed By: #### Bernice HERNDON UMICRO #### [facility] [address] [place] [address] Dr. Gasper NUNEZ ECOLI GI PANEL DIARRHEAGEN IC E.COLI / SHIGELLA Normal [facility] Comment on above: Performed By: #### Bernice HERNDON UMICRO #### [facility] [address] [place] [address] Dr. Gasper NUNEZ INFO SEE BELOW Normal [facility] Comment on above: Result Comment: EAEC - Enteroaggregative E. Coli EPEC- Enteropathogenic E. Coli ETEC- Enterotoxigenic E. Coli lt/st STEC- Shigella-like toxin-producing E. Coli stx1/stx2 EIEC- Shigella/Enteroinvasive E. Coli Performed By: #### Bernice HERNDON UMICRO #### [facility] [address] [place] [address] Dr. Gasper NUNEZ PARASITES GI PANEL PARASITES Normal [facility] Comment on above: Performed By: #### Bernice HERNDON UMICRO #### [facility] [address] [place] [address] Dr. Gasper NUNEZ VIRUS GI PANEL VIRUSES Normal [facility] Comment on above: Performed By: #### Bernice HERNDON UMICRO #### [facility] [address] [place] [address] Dr. Gasper Garber Norovirus GI/GII Detected Abnormal NOT DETECTED [facility] Comment on above: Performed By: #### E RUR, UMICRO #### [facility] [address] [place] [address] Dr. Gasper Garber P. Shigelloides Not detected Normal NOT DETECTED [facility] Comment on above: Performed By: #### E RUR, UMICRO #### [facility] [address] [place] [address] Dr. Gasper Garber Rotavirus A Not detected Normal NOT DETECTED [facility] Comment on above: Performed By: #### E RUR, UMICRO #### [facility] [address] [place] [address] Dr. Gasper Garber Salmonella Not detected Normal NOT DETECTED [facility] Comment on above: Performed By: #### E RUR, UMICRO #### [facility] [address] [place] [address] Dr. Gasper Garber Sapovirus Not detected Normal NOT DETECTED [facility] Comment on above: Performed By: #### E RUR, ICRO #### [facility] [address] [place] [address] Dr. Gasper Garber STEC Not detected Normal NOT DETECTED [facility] Comment on above: Performed By: #### E RUR, UMICRO #### [facility] [address] [place] [address] Dr. Gasper Garber Vibrio Not detected Normal NOT DETECTED [facility] Comment on above: Performed By: #### E RUR, UMICRO #### [facility] [address] [place] [address] Dr. Gasper Garber Vibrio Cholera Not detected Normal NOT DETECTED [facility] Comment on above: Performed By: #### E RUR, UMICRO #### [facility] [address] [place] [address] Dr. Gasper Garber Y. Enterocolitica Not detected Normal NOT DETECTED [facility] Comment on above: Performed By: #### E RUR, UMICRO #### [facility] [address] [place] [address] Dr. Gasper Garber LACTATE/LACTIC ACIDon 2021 Lactate [Moles/Vol] 1.0 mmol/L Normal 0.4-1.9 [facility] Comment on above: Performed By: #### P T, PTT #### [facility] [address] [place] [address] Dr. Gasper Garber LIPASEon 08-31-2021 Lipase [Catalytic activity/Vol] 166.0 U/L Normal 73.0-393.0 [facility] Comment on above: Performed By: #### U ARMICR #### [facility] [address] [place] [address] Dr. Gasper Garber PROF 14(COMP METB)on 022 Albumin [Mass/Vol] 3.7 g/dL Normal 3.4-5.0 [facility] Comment on above: Performed By: #### U ARMICR #### [facility] [address] [place] [address] Dr. Gasper Garber Albumin/Globulin [Mass ratio] 1.0 {ratio} Normal [facility] Comment on above: Performed By: #### U ARMICR #### [facility] [address] [place] [address] Dr. Gasper Garber ALP [Catalytic activity/Vol] 75 U/L Normal 46-116 [facility] Comment on above: Performed By: #### U ARMICR #### [facility] [address] [place] [address] Dr. Gasper Garber ALT [Catalytic activity/Vol] 44 U/L Normal 14-59 [facility] Comment on above: Performed By: #### U ARMICR #### [facility] [address] [place] [address] Dr. Gasper Garber Anion gap [Moles/Vol] 15.3 mmol/L Normal [facility] Comment on above: Performed By: #### U ARMICR #### [facility] [address] [place] [address] Dr. Gasper Garber AST [Catalytic activity/Vol] 27 U/L Normal 15-37 [facility] Comment on above: Performed By: #### U ARMICR #### [facility] [address] [address] [address] Gasper Garber Bilirubin [Mass/Vol] 0.5 mg/dL Normal 0.2-1.0 [facility] Comment on above: Performed By: #### U ARMICR #### [facility] [address] [address] [address] Gasper Garber Calcium [Mass/Vol] 9.7 mg/dL Normal 8.5-10.1 [facility] Comment on above: Performed By: #### U ARMICR #### [facility] [address] [address] [address] Gasper Garber Chloride [Moles/Vol] 105 mmol/L Normal 98-107 [facility] Comment on above: Performed By: #### U ARMICR #### [facility] [address] [address] [address] Gasper Garber CO2 [Moles/Vol] 24.0 mmol/L Normal 21.0-32.0 [facility] Comment on above: Performed By: #### U ARMICR #### [facility] [address] [address] [address] Gasper Garber Creatinine [Mass/Vol] 2.20 mg/dL Critically high 0.55-1.02 [facility] Comment on above: Performed By: #### U ARMICR #### [facility] [address] [address] [address] Gasper Garber EGFR-AF [place] 26 mL/min/1.73m2 Critically low >=60 [facility] Comment on above: Performed By: #### U ARMICR #### [facility] [address] [address] [address] Gasper Garber EGFR-NON AF [place] 22 mL/min/1.73m2 Critically low >=60 [facility] Comment on above: Performed By: #### U ARMICR #### [facility] [address] [address] [address] Gasper Garber Globulin (S) [Mass/Vol] 3.7 g/dL Normal [facility] Comment on above: Performed By: #### U ARMICR #### [facility] [address] [address] [address] Gasper Garber Glucose [Mass/Vol] 280 mg/dL Critically high 74-106 [facility] Comment on above: Performed By: #### U ARMICR #### [facility] [address] [place] [address] Dr. Gasper Garber Potassium [Moles/Vol] 4.3 mmol/L Normal 3.5-5.1 [facility] Comment on above: Performed By: #### U ARMICR #### [facility] [address] [place] [address] Dr. Gasper Garber Protein [Mass/Vol] 7.4 g/dL Normal 6.4-8.2 [facility] Comment on above: Performed By: #### U ARMICR #### [facility] [address] [place] [address] Dr. Gasper Garbre Sodium [Moles/Vol] 140 mmol/L Normal 136-145 [facility] Comment on above: Performed By: #### U ARMICR #### [facility] [address] [place] [address] Dr. Gasper Garber Urea nitrogen [Mass/Vol] 29.0 mg/dL Critically high 7.0-18.0 [facility] Comment on above: Performed By: #### U ARMICR #### [facility] [address] [place] [address] Dr. Gasper Garber Urea nitrogen/Creatinine [Mass ratio] 13.2 mg/mg Normal [facility] Comment on above: Performed By: #### U ARMICR #### [facility] [address] [place] [address] Dr. Gasper Garber TSHon 08-31-2021 TSH 0.923 uIU/mL Normal 0.358-3.740 [facility] Comment on above: Performed By: #### U ARMICR #### [facility] [address] [place] [address] Dr. Gasper Garber URINE MICROSCOPIC ONLYon BACTERIA SMALL Abnormal NONE SEEN [facility] Comment on above: Performed By: #### E RUR, UMICRO #### [facility] [address] [place] [address] Dr. Gasper Garber Bacteria identified Cx Nom (U) INDICATED Normal [facility] Comment on above: Performed By: #### E RUR, UMICRO #### [facility] [address] [place] [address] Dr. Gasper Garber CAST NONE SEEN Normal NONE SEEN [facility] Comment on above: Performed By: #### E RUR, UMICRO #### [facility] [address] [place] [address] Dr. Gasper Garber Crystals LM Nom (Urine sed) NONE SEEN Normal NONE SEEN [facility] Comment on above: Performed By: #### E RUR, UMICRO #### [facility] [address] [place] [address] Dr. Gasper Garber Epithelial cells LM Ql (Urine sed) MANY Abnormal NONE SEEN /RARE [facility] Comment on above: Performed By: #### E RUR, UMICRO #### [facility] [address] [place] [address] Dr. Gasper Garber MUCOUS NONE SEEN Normal NONE SEEN [facility] Comment on above: Performed By: #### E RUR, UMICRO #### [facility] [address] [place] [address] Dr. Gasper Garber RBC 0-2 Normal 0-2 [facility] Comment on above: Performed By: #### E RUR, UMICRO #### [facility] [address] [place] [address] Dr. Gasper Garber WBC 2-5 Abnormal NONE SEEN [facility] Comment on above: Performed By: #### E RUR, UMICRO #### [facility] [address] [place] [address] Dr. Gasper Garber XR ABD FLAT UP_PA Omar 08-31 XR ABD FLAT UP_PA CH EXAMINATION: XR ABD FLAT UP_PA CH HISTORY: NAUSEA WITH VOMITING, UNSPECIFIED COMPARISON: No relevant comparison available. FINDINGS: LUNGS: No infiltrate, pneumothorax, or pleural effusion. Stable left basilar nodule, granuloma favored MEDIASTINUM: No abnormal widening. BOWEL GAS PATTERN: Non-obstructed. FREE AIR: None. CALCIFICATIONS: None significant. BONES: Moderate degenerative changes with rotatory dextrocurvature of the thoracolumbar spine OTHER: Negative. IMPRESSION: Clear lungs Nonobstructive bowel gas pattern Electronically authenticated by: CHRYSTAL LAUREANO Date: 2021-08-31 15:55 Normal [facility] CBC AUTO DIFFon 08-27-2021 BASO # 0.1 103/ul Normal 0.0-0.1 [facility] Comment on above: Performed By: #### BERNIE MALDONADO #### [facility] [address] [place] [address] Dr. Gasper Garber Basophils/100 WBC (Bld) 0.6 % Normal 0.2-2.0 [facility] Comment on above: Performed By: #### BERNIE MALDONADO #### [facility] [address] [place] [address] Dr. Gasper Garber EO # 0.0 103/ul Normal 0.0-0.7 [facility] Comment on above: Performed By: #### BERNIE MALDONADO #### [facility] [address] [place] [address] Dr. Gasper Garber Eosinophils/100 WBC (Bld) 0.5 % Critically low 0.9-7.0 [facility] Comment on above: Performed By: #### BERNIE MALDONADO #### [facility] [address] [place] [address] Dr. Gasper Garber Erythrocyte distribution width (RBC) [Ratio] 13.0 % Normal 11.0-15.0 [facility] Comment on above: Performed By: #### BERNIE MALDONADO #### [facility] [address] [place] [address] Dr. Gasper Garber Hematocrit (Bld) [Volume fraction] 35.6 % Critically low 36.0-48.0 [facility] Comment on above: Performed By: #### BERNIE MALDONADO #### [facility] [address] [address] [address] Gasper Garber Hemoglobin (Bld) [Mass/Vol] 11.5 g/dL Critically low 12.0-16.0 [facility] Comment on above: Performed By: #### E RUR, UMICRO #### [facility] [address] [place] [address] Dr. Gasper Garber IG # 0.03 10e3/ul Normal 0.00-0.03 [facility] Comment on above: Performed By: #### E MINR, UMICRO #### [facility] [address] [place] [address] Dr. Gasper Garber IG % 0.3 % Normal 0.0-0.5 [facility] Comment on above: Performed By: #### E YANICK, UMICRO #### [facility] [address] [place] [address] Dr. Gasper Garber LYMPH # 1.0 103/ul Critically low 1.2-3.8 [facility] Comment on above: Performed By: #### Bernice HERNDON, UMICRO #### [facility] [address] [place] [address] Dr. Gasper Garber Lymphocytes/100 WBC (Bld) 10.8 % Critically low 20.5-60.0 [facility] Comment on above: Performed By: #### Bernice HERNDON, UMICRO #### [facility] [address] [place] [address] Dr. Gasper Garber MANUAL DIFF REQ NO Normal [facility] Comment on above: Performed By: #### E YANICK, UMICRO #### [facility] [address] [place] [address] Dr. Gasper Garber MCH (RBC) [Entitic mass] 31.2 pg Normal 26.7-34.0 [facility] Comment on above: Performed By: #### E MINR, UMICRO #### [facility] [address] [place] [address] Dr. Gasper Garber MCHC (RBC) [Mass/Vol] 32.3 g/dL Normal 29.9-35.2 [facility] Comment on above: Performed By: #### TONI MALDONADORO #### [facility] [address] [place] [address] Dr. Gasper Garber MCV (RBC) [Entitic vol] 96.5 fL Normal 81.0-99.0 [facility] Comment on above: Performed By: #### TONI MALDONADORO #### [facility] [address] [place] [address] Dr. Gasper Garber MONO # 0.6 103/ul Normal 0.3-0.8 [facility] Comment on above: Performed By: #### TONI MALDONADORO #### [facility] [address] [place] [address] Dr. Gasper Garber Monocytes/100 WBC (Bld) 7.2 % Normal 1.7-12.0 [facility] Comment on above: Performed By: #### TONI MALDONADORO #### [facility] [address] [place] [address] Dr. Gasper Garber NEUT # 7.1 103/ul Critically high 1.4-6.5 [facility] Comment on above: Performed By: #### TONI MALDONADORO #### [facility] [address] [place] [address] Dr. Gasper Garber Neutrophils/100 WBC (Bld) 80.6 % Critically high 43.0-75.0 [facility] Comment on above: Performed By: #### TONI MALDONADORO #### [facility] [address] [place] [address] Dr. Gasper Garber Platelet mean volume (Bld) [Entitic vol] 10.2 fL Normal 9.5-13.5 [facility] Comment on above: Performed By: #### TONI MALDONADORO #### [facility] [address] [place] [address] Dr. Gasper Garber PLT 276 103/ul Normal 150-450 [facility] Comment on above: Performed By: #### TONI MALDONADORO #### [facility] [address] [place], [place] [address] Dr. Gasper Garber RBC 3.69 106/ul Critically low 4.20-5.40 [facility] Comment on above: Performed By: #### TONI MALDONADORO #### [facility] [address] [place], [place] [address] Dr. Gasper Garber WBC 8.8 103/ul Normal 4.0-11.0 [facility] Comment on above: Performed By: #### E TONI HERNDONRO #### [facility] [address] [place], [place] [address] ABD/PELVIS WO CONon 08-27 CT ABD/PELVIS WO CON EXAMINATION: CT ABD /PELVIS WO CON, 08/27/2021 2:52 PM EDT HISTORY: NAUSEA WITH VOMITING, UNSPECIFIED COMPARISON: CT abdomen pelvis from 07/15/2021 TECHNIQUE: CT scan of the abdomen and pelvis was performed without IV contrast. CT dose reduction technique was used, including Automated Exposure Control. FINDINGS: Lung bases: Pulmonary nodule right middle lobe image #1 measuring 0.4 cm, unchanged. Calcified granuloma within the left lower lobe. Pulmonary nodule right lower lobe image #12 measuring 0.3 cm unchanged. No pleural effusion. Calcification of the mitral annulus. Liver: Normal. No intrahepatic or extrahepatic biliary ductal dilation. Gallbladder: Status post cholecystectomy. Pancreas: Normal. Spleen: Normal. Adrenal glands: There is mild diffuse thickening of the left adrenal gland without nodule. Kidneys/Ureters: No renal lithiasis, hydronephrosis or distal ureteral calculi. Bladder: Normal. Reproductive: Status post hysterectomy. Soft tissues: Small fat-containing inguinal hernias. Fat-containing right supraumbilical ventral abdominal hernia with a transverse opening of 2.8 cm. Gastrointestinal: The bowel is not obstructed. A few diverticula are present. No bowel wall thickening or surrounding inflammation. The appendix is normal. Vascular: The aorta is normal in caliber. Atherosclerotic vascular calcification of the aorta and iliac arteries and major branch vessels. Lymph nodes: No lymphadenopathy. Osseous: No acute fracture. No aggressive osseous lesion. IMPRESSION: 1. No acute abnormality identified within abdomen or pelvis. 2. Ventral fat-containing umbilical hernia and inguinal hernias. 3. Pulmonary nodules measuring up to 0.4 cm, unchanged. In a low risk patient no follow-up is required. 4. Atherosclerotic vascular disease. Electronically authenticated by: BELIA GAFFNEY Date: 2021-08-27 16:04 Normal [facility] ER URINE PROFILEon 2 Bilirubin Ql (U) Negative Normal NEGATIVE [facility] Comment on above: Performed By: #### Bernice HERNDON UMICRO #### [facility] [address] [address] [address] Gasper Garber Clarity (U) CLEAR Normal CLEAR [facility] Comment on above: Performed By: #### E YANICK UMICRO #### [facility] [address] [address] [address] Gasper Garber Color (U) LT. YELLOW Normal YELLOW [facility] Comment on above: Performed By: #### Bernice HERNDON UMICRO #### [facility] [address] [place] [address] Dr. Gasper Garber ERUJIMMYD A micrscopic examina tion will be performed if indicated. Normal [facility] Comment on above: Performed By: #### Bernice HERNDON UMICRO #### [facility] [address] [address] [address] Gasper Garber Glucose Ql (U) Negative Normal NEGATIVE [facility] Comment on above: Performed By: #### Bernice HERNDON UMICRO #### [facility] [address] [address] [address] Gasper Garber Hemoglobin Ql (U) Negative Normal NEGATIVE [facility] Comment on above: Performed By: #### Bernice HERNDON UMICRO #### [facility] [address] [address] [address] Gasper Garber Ketones Ql (U) Negative Normal NEGATIVE [facility] Comment on above: Performed By: #### Bernice HERNDON UMICRO #### [facility] [address] [address] [address] Gasper Garber LEUKOCYTES Negative Normal NEGATIVE [facility] Comment on above: Performed By: #### Bernice HERNDON UMICRO #### [facility] [address] [place] [address] Dr. Gasper Garber Nitrite Ql (U) Negative Normal NEGATIVE [facility] Comment on above: Performed By: #### BERNIE MALDONADO #### [facility] [address] [place] [address] Dr. Gasper Garber pH (U) 6.5 [pH] Normal 5-9 [facility] Comment on above: Performed By: #### TONI MALDONADORO #### [facility] [address] [place] [address] Dr. Gasper Garber Protein (U) [Mass/Vol] 100 mg/dL Abnormal NEGATIVE/ TRACE [facility] Comment on above: Performed By: #### TONI MALDONADORO #### [facility] [address] [place] [address] Dr. Gasper Garber SPEC GRAVITY 1.015 Normal 1.005-<=1.0 25 [facility] Comment on above: Performed By: #### TONI MALDONADORO #### [facility] [address] [place] [address] Dr. Gasper Garber UR MICRO IND INDICATED Normal [facility] Comment on above: Performed By: #### TONI MALDONADORO #### [facility] [address] [place] [address] Dr. Gasper Garber Urobilinogen Qn (U) 0.2 {Kaushik'U}/dL Normal 0.2 - 1. 0 [facility] Comment on above: Performed By: #### TONI MALDONADORO #### [facility] [address] [place] [address] Dr. Gasper Garber PROF CHEM 8 (BAS METB)on Anion gap [Moles/Vol] 14.7 mmol/L Normal [facility] Comment on above: Performed By: #### P T, PTT #### [facility] [address] [place] [address] Dr. Gasper Garber Calcium [Mass/Vol] 10.1 mg/dL Normal 8.5-10.1 [facility] Comment on above: Performed By: #### P T, PTT #### [facility] [address] [address] [address] Gasper Garber Chloride [Moles/Vol] 105 mmol/L Normal 98-107 [facility] Comment on above: Performed By: #### P T, PTT #### [facility] [address] [address] [address] Gasper Garber CO2 [Moles/Vol] 24.0 mmol/L Normal 21.0-32.0 [facility] Comment on above: Performed By: #### P T, PTT #### [facility] [address] [address] [address] Gasper Garber Creatinine [Mass/Vol] 1.56 mg/dL Critically high 0.55-1.02 [facility] Comment on above: Performed By: #### P T, PTT #### [facility] [address] [address] [address] Gasper Garber EGFR-AF [place] 39 mL/min/1.73m2 Critically low >=60 [facility] Comment on above: Performed By: #### P T, PTT #### [facility] [address] [address] [address] Gasper Garber EGFR-NON AF [place] 32 mL/min/1.73m2 Critically low >=60 [facility] Comment on above: Performed By: #### P T, PTT #### [facility] [address] [address] [address] Gasper Garber Glucose [Mass/Vol] 209 mg/dL Critically high 74-106 [facility] Comment on above: Performed By: #### P T, PTT #### [facility] [address] [address] [address] Gasper Garber Potassium [Moles/Vol] 4.7 mmol/L Normal 3.5-5.1 [facility] Comment on above: Performed By: #### P T, PTT #### [facility] [address] [address] [address] Gasper Garber Sodium [Moles/Vol] 139 mmol/L Normal 136-145 [facility] Comment on above: Performed By: #### P T, PTT #### [facility] [address] [address] [address] Gasper Garber Urea nitrogen [Mass/Vol] 16.0 mg/dL Normal 7.0-18.0 [facility] Comment on above: Performed By: #### P T, PTT #### [facility] [address] [address] [address] Gasper Garber Urea nitrogen/Creatinine [Mass ratio] 10.3 mg/mg Normal [facility] Comment on above: Performed By: #### P T, PTT #### [facility] [address] [address] [address] Gasper Garber URINE MICROSCOPIC ONLYon BACTERIA TRACE Abnormal NONE SEEN [facility] Comment on above: Performed By: #### E RUR, UMICRO #### [facility] [address] [place] [address] Dr. Gasper Garber Bacteria identified Cx Nom (U) NOT INDICATED Normal [facility] Comment on above: Performed By: #### E RUR, UMICRO #### [facility] [address] [place] [address] Dr. Gasper Garber CAST NONE SEEN Normal NONE SEEN [facility] Comment on above: Performed By: #### E RUR, UMICRO #### [facility] [address] [place] [address] Dr. Gasper Garber Crystals LM Nom (Urine sed) NONE SEEN Normal NONE SEEN [facility] Comment on above: Performed By: #### E RUR, UMICRO #### [facility] [address] [place] [address] Dr. Gasper Garber Epithelial cells LM Ql (Urine sed) FEW Abnormal NONE SEEN /RARE [facility] Comment on above: Performed By: #### E RUR, UMICRO #### [facility] [address] [place] [address] Dr. Gasper Garber MUCOUS NONE SEEN Normal NONE SEEN [facility] Comment on above: Performed By: #### E RUR, UMICRO #### [facility] [address] [place] [address] Dr. Gasper Garber RBC NONE SEEN Abnormal 0-2 [facility] Comment on above: Performed By: #### BERNIE MALDONADO #### [facility] [address] [place] [address] Dr. Gasper Garber WBC 0-2 Abnormal NONE SEEN [facility] Comment on above: Performed By: #### BERNIE MALDONADO #### [facility] [address] [place] [address] Dr. Gasper Garber CULTURE URINEon 08-19-2021 CULTURE URINE Culture Observations : Called to [facility] rn 08-19-21 @0552 Culture Observations: METHICILLIN RESISTANT STAPH AUREUS ISOLATED. PLEASE FOLLOW APPROPRIATE ISOLATION PROCEDURES. Isolate 1 Staphylococcus aureus 30,000 cfu/mL of ORGANISM 1 Staphylococcus aureus ANTIBIOTIC M.I.C RX STATUS Beta-Lactamase Pos POS C Cefoxitin Screen Pos POS C Benzylpenicillin >=0.5 R C Ciprofloxacin >=8 R C Levofloxacin >=8 R C Moxifloxacin 4 I C Inducible Clindamycin Resistance Neg NEG C Quinupristin/Dalfopristin 0.5 S C Linezolid 2 S C Vancomycin <=0.5 S C Tetracycline <=1 S C Nitrofurantoin <=16 S C Rifampicin <=0.5 S C Trimethoprim/Sulfamethoxazo le <=10 S C Oxacillin >=4 R C Normal [facility] Comment on above: Performed By: #### A CETON #### [facility] [address] [place] [address] Dr. Gasper Garber CBC AUTO DIFFon 08-16-2021 BASO # 0.0 103/ul Normal 0.0-0.1 [facility] Comment on above: Performed By: #### BERNIE MALDONADO #### [facility] [address] [place] [address] Dr. Gasper Garber Basophils/100 WBC (Bld) 0.4 % Normal 0.2-2.0 [facility] Comment on above: Performed By: #### BERNIE MALDONADO #### [facility] [address] [place] [address] Dr. Gasper Garber EO # 0.1 103/ul Normal 0.0-0.7 [facility] Comment on above: Performed By: #### TONI MALDONADORO #### [facility] [address] [place] [address] Dr. Gasper Garber Eosinophils/100 WBC (Bld) 1.0 % Normal 0.9-7.0 [facility] Comment on above: Performed By: #### TONI MALDONADORO #### [facility] [address] [place] [address] Dr. Gasper Garber Erythrocyte distribution width (RBC) [Ratio] 12.5 % Normal 11.0-15.0 [facility] Comment on above: Performed By: #### TONI MALDONADORO #### [facility] [address] [place] [address] Dr. Gasper Garber Hematocrit (Bld) [Volume fraction] 35.3 % Critically low 36.0-48.0 [facility] Comment on above: Performed By: #### TONI MALDONADORO #### [facility] [address] [place] [address] Dr. Gasper Garber Hemoglobin (Bld) [Mass/Vol] 11.7 g/dL Critically low 12.0-16.0 [facility] Comment on above: Performed By: #### Bernice HERNDON UMICRO #### [facility] [address] [place] [address] Dr. Gasper Garber IG # 0.03 10e3/ul Normal 0.00-0.03 [facility] Comment on above: Performed By: #### JOANNE MALDONADOICRO #### [facility] [address] [place] [address] Dr. Gasper Garber IG % 0.3 % Normal 0.0-0.5 [facility] Comment on above: Performed By: #### Bernice HERNDON UMICRO #### [facility] [address] [place] [address] Dr. Gasper Garber LYMPH # 0.9 103/ul Critically low 1.2-3.8 [facility] Comment on above: Performed By: #### TONI MALDONADORO #### [facility] [address] [place] [address] Dr. Gasper Garber Lymphocytes/100 WBC (Bld) 9.6 % Critically low 20.5-60.0 [facility] Comment on above: Performed By: #### TONI MALDONADORO #### [facility] [address] [place] [address] Dr. Gasper Garber MANUAL DIFF REQ NO Normal [facility] Comment on above: Performed By: #### TONI MALDONADORO #### [facility] [address] [place] [address] Dr. Gasper Garber MCH (RBC) [Entitic mass] 30.8 pg Normal 26.7-34.0 [facility] Comment on above: Performed By: #### TONI MALDONADORO #### [facility] [address] [place] [address] Dr. Gasper Garber MCHC (RBC) [Mass/Vol] 33.1 g/dL Normal 29.9-35.2 [facility] Comment on above: Performed By: #### TONI MALDONADORO #### [facility] [address] [place] [address] Dr. Gasper Graber MCV (RBC) [Entitic vol] 92.9 fL Normal 81.0-99.0 [facility] Comment on above: Performed By: #### TONI MALDONADORO #### [facility] [address] [place] [address] Dr. Gasper Garber MONO # 0.9 103/ul Critically high 0.3-0.8 [facility] Comment on above: Performed By: #### TONI MALDONADORO #### [facility] [address] [place] [address] Dr. Gasper Garber Monocytes/100 WBC (Bld) 9.3 % Normal 1.7-12.0 [facility] Comment on above: Performed By: #### TONI MALDONADORO #### [facility] [address] [place] [address] Dr. Gasper Garber NEUT # 7.7 103/ul Critically high 1.4-6.5 [facility] Comment on above: Performed By: #### TONI MALDONADORO #### [facility] [address] [place] [address] Dr. Gasper Garber Neutrophils/100 WBC (Bld) 79.4 % Critically high 43.0-75.0 [facility] Comment on above: Performed By: #### Bernice HERNDON ICRO #### [facility] [address] [place] [address] Dr. Gasper Garber Platelet mean volume (Bld) [Entitic vol] 10.1 fL Normal 9.5-13.5 [facility] Comment on above: Performed By: #### Bernice HERNDON ICRO #### [facility] [address] [place] [address] Dr. Gasper Garber PLT 302 103/ul Normal 150-450 [facility] Comment on above: Performed By: #### Bernice HERNDON ICRO #### [facility] [address] [place] [address] Dr. Gasper Garber RBC 3.80 106/ul Critically low 4.20-5.40 [facility] Comment on above: Performed By: #### Bernice HERNDON ICRO #### [facility] [address] [place] [address] Dr. Gasper Garber WBC 9.7 103/ul Normal 4.0-11.0 [facility] Comment on above: Performed By: #### Bernice HERNDON ICRO #### [facility] [address] [place] [address] Dr. Gasper Garber ER URINE PROFILEon 2 Bilirubin Ql (U) Negative Normal NEGATIVE [facility] Comment on above: Performed By: #### U DONOVANR #### [facility] [address] [place] [address] Dr. Gasper Garber Clarity (U) CLEAR Normal CLEAR [facility] Comment on above: Performed By: #### U DONOVANR #### [facility] [address] [address] [address] Gasper Garber Color (U) LT. YELLOW Normal YELLOW [facility] Comment on above: Performed By: #### U ARMICR #### [facility] [address] [address] [address] Gasper RIVAS A micrscopic examina tion will be performed if indicated. Normal [facility] Comment on above: Performed By: #### U ARMICR #### [facility] [address] [address] [address] Gasper Garber Glucose Ql (U) Negative Normal NEGATIVE [facility] Comment on above: Performed By: #### U ARMICR #### [facility] [address] [address] [address] Gasper Garber Hemoglobin Ql (U) Negative Normal NEGATIVE [facility] Comment on above: Performed By: #### U ARMICR #### [facility] [address] [address] [address] Gasper Garber Ketones Ql (U) Negative Normal NEGATIVE [facility] Comment on above: Performed By: #### U ARMICR #### [facility] [address] [address] [address] Gasper Garber LEUKOCYTES MODERATE Abnormal NEGATIVE [facility] Comment on above: Performed By: #### U ARMICR #### [facility] [address] [place] [address] Dr. Gasper Garber Nitrite Ql (U) Negative Normal NEGATIVE [facility] Comment on above: Performed By: #### U ARMICR #### [facility] [address] [address] [address] Gasper Garber pH (U) 7.0 [pH] Normal 5-9 [facility] Comment on above: Performed By: #### U ARMICR #### [facility] [address] [place] [address] Dr. Gasper Garber SPEC GRAVITY 1.010 Normal 1.005-<=1.0 25 [facility] Comment on above: Performed By: #### U ARMICR #### [facility] [address] [place] [address] Dr. Gasper Garber UA PROTEIN Negative Normal NEGATIVE/ TRACE [facility] Comment on above: Performed By: #### U ARMICR #### [facility] [address] [place] [address] Dr. Gasper Garber UR MICRO IND INDICATED Normal [facility] Comment on above: Performed By: #### U ARMICR #### [facility] [address] [place] [address] Dr. Gasper Garber Urobilinogen Qn (U) 0.2 {Kaushik'U}/dL Normal 0.2 - 1. 0 [facility] Comment on above: Performed By: #### U ARMICR #### [facility] [address] [place] [address] Dr. Gasper Garber PROF 14(COMP METB)on 022 Albumin [Mass/Vol] 3.9 g/dL Normal 3.4-5.0 [facility] Comment on above: Performed By: #### P T, PTT #### [facility] [address] [place] [address] Dr. Gasper Garber Albumin/Globulin [Mass ratio] 1.2 {ratio} Normal [facility] Comment on above: Performed By: #### P T, PTT #### [facility] [address] [place] [address] Dr. Gasper Garber ALP [Catalytic activity/Vol] 70 U/L Normal 46-116 [facility] Comment on above: Performed By: #### P T, PTT #### [facility] [address] [place] [address] Dr. Gasper Garber ALT [Catalytic activity/Vol] 44 U/L Normal 14-59 [facility] Comment on above: Performed By: #### P T, PTT #### [facility] [address] [place] [address] Dr. Gasper Garber Anion gap [Moles/Vol] 17.7 mmol/L Normal [facility] Comment on above: Performed By: #### P T, PTT #### [facility] [address] [address] [address] Gasper Garber AST [Catalytic activity/Vol] 31 U/L Normal 15-37 [facility] Comment on above: Performed By: #### P T, PTT #### [facility] [address] [address] [address] Gasper Garber Bilirubin [Mass/Vol] 0.6 mg/dL Normal 0.2-1.0 [facility] Comment on above: Performed By: #### P T, PTT #### [facility] [address] [address] [address] Gasper Garber Calcium [Mass/Vol] 9.9 mg/dL Normal 8.5-10.1 [facility] Comment on above: Performed By: #### P T, PTT #### [facility] [address] [address] [address] Gasper Garber Chloride [Moles/Vol] 99 mmol/L Normal 98-107 [facility] Comment on above: Performed By: #### P T, PTT #### [facility] [address] [address] [address] Gasper Garber CO2 [Moles/Vol] 24.4 mmol/L Normal 21.0-32.0 [facility] Comment on above: Performed By: #### P T, PTT #### [facility] [address] [place] [address] Dr. Gasper Garber Creatinine [Mass/Vol] 3.08 mg/dL Critically high 0.55-1.02 [facility] Comment on above: Performed By: #### P T, PTT #### [facility] [address] [address] [address] Gasper Garber EGFR-AF [place] 18 mL/min/1.73m2 Critically low >=60 [facility] Comment on above: Performed By: #### P T, PTT #### [facility] [address] [place] [address] Dr. Gasper Garber EGFR-NON AF [place] 15 mL/min/1.73m2 Critically low >=60 [facility] Comment on above: Performed By: #### P T, PTT #### [facility] [address] [address] [address] Gasper Garber Globulin (S) [Mass/Vol] 3.2 g/dL Normal [facility] Comment on above: Performed By: #### P T, PTT #### [facility] [address] [address] [address] Gasper Garber Glucose [Mass/Vol] 158 mg/dL Critically high 74-106 [facility] Comment on above: Performed By: #### P T, PTT #### [facility] [address] [place] [address] Dr. Gasper Garber Potassium [Moles/Vol] 4.1 mmol/L Normal 3.5-5.1 [facility] Comment on above: Performed By: #### P T, PTT #### [facility] [address] [place] [address] Dr. Gasper Garber Protein [Mass/Vol] 7.1 g/dL Normal 6.4-8.2 [facility] Comment on above: Performed By: #### P T, PTT #### [facility] [address] [place] [address] Dr. Gasper Garber Sodium [Moles/Vol] 137 mmol/L Normal 136-145 [facility] Comment on above: Performed By: #### P T, PTT #### [facility] [address] [place] [address] Dr. Gasper Garber Urea nitrogen [Mass/Vol] 48.0 mg/dL Critically high 7.0-18.0 [facility] Comment on above: Performed By: #### P T, PTT #### [facility] [address] [place] [address] Dr. Gasper Garber Urea nitrogen/Creatinine [Mass ratio] 15.6 mg/mg Normal [facility] Comment on above: Performed By: #### P T, PTT #### [facility] [address] [place] [address] Dr. Gasper Garber TROPONIN, HIGH SENSITIVITYon 08-16-2021 HSTROP 15.7 pg/mL Normal 4.0-51.3 [facility] Comment on above: Result Comment: CUT- OFF POINTS HAVE BEEN ESTABLISHED BASED ON THE FOURTH UNIVERSAL DEFINITIONS OF MYOCARDIAL INFARCTION. THE UPPER REFERENCE LIMIT (URL) OF TROPONIN, DEFINED THE 99TH PERCENTILE OF cTnI DISTRIBUTION IN A REFERENCE POPULATION, HAS BEEN CONFIRMED THE DECISION THRESHOLD FOR [place] DIAGNOSIS. Performed By: #### P T, PTT #### [facility] [address] [place] [address] Dr. Gasper Garber URINE MICROSCOPIC ONLYon BACTERIA TRACE Abnormal NONE SEEN [facility] Comment on above: Performed By: #### U ARMICR #### [facility] [address] [place] [address] Dr. Gasper Garber Bacteria identified Cx Nom (U) INDICATED Normal [facility] Comment on above: Performed By: #### U ARMICR #### [facility] [address] [place] [address] Dr. Gasper Garber CAST NONE SEEN Normal NONE SEEN [facility] Comment on above: Performed By: #### U ARMICR #### [facility] [address] [place] [address] Dr. Gasper Garber Crystals LM Nom (Urine sed) NONE SEEN Normal NONE SEEN [facility] Comment on above: Performed By: #### U ARMICR #### [facility] [address] [place] [address] Dr. Gasper Garber Epithelial cells LM Ql (Urine sed) FEW Abnormal NONE SEEN /RARE [facility] Comment on above: Performed By: #### U ARMICR #### [facility] [address] [place] [address] Dr. Gasper Garber MUCOUS NONE SEEN Normal NONE SEEN [facility] Comment on above: Performed By: #### U ARMICR #### [facility] [address] [place] [address] Dr. Gasper Garber RBC 0-2 Normal 0-2 [facility] Comment on above: Performed By: #### U ARMICR #### [facility] [address] [place] [address] Dr. Gasper Garber WBC 10-20 Abnormal NONE SEEN [facility] Comment on above: Performed By: #### U ARMICR #### [facility] [address] [address] [address] Gasper Garber PROF CHEM 8 (BAS METB)on Anion gap [Moles/Vol] 13.5 mmol/L Normal [facility] Comment on above: Performed By: #### P T, PTT #### [facility] [address] [address] [address] Gasper Garber Calcium [Mass/Vol] 9.6 mg/dL Normal 8.5-10.1 [facility] Comment on above: Performed By: #### P T, PTT #### [facility] [address] [address] [address] Gasper Garber Chloride [Moles/Vol] 102 mmol/L Normal 98-107 [facility] Comment on above: Performed By: #### P T, PTT #### [facility] [address] [place] [address] Dr. Gasper Garber CO2 [Moles/Vol] 29.0 mmol/L Normal 21.0-32.0 [facility] Comment on above: Performed By: #### P T, PTT #### [facility] [address] [place] [address] Dr. Gasper Garber Creatinine [Mass/Vol] 2.05 mg/dL Critically high 0.55-1.02 [facility] Comment on above: Performed By: #### P T, PTT #### [facility] [address] [place] [address] Dr. Gasper Garber EGFR-AF [place] 29 mL/min/1.73m2 Critically low >=60 [facility] Comment on above: Performed By: #### P T, PTT #### [facility] [address] [place] [address] Dr. Gasper Garber EGFR-NON AF [place] 24 mL/min/1.73m2 Critically low >=60 [facility] Comment on above: Performed By: #### P T, PTT #### [facility] [address] [place] [address] Dr. Gasper Garber Glucose [Mass/Vol] 203 mg/dL Critically high 74-106 [facility] Comment on above: Performed By: #### P T, PTT #### [facility] [address] [place] [address] Dr. Gasper Garber Potassium [Moles/Vol] 4.5 mmol/L Normal 3.5-5.1 [facility] Comment on above: Performed By: #### P T, PTT #### [facility] [address] [place] [address] Dr. Gasper Garber Sodium [Moles/Vol] 140 mmol/L Normal 136-145 [facility] Comment on above: Performed By: #### P T, PTT #### [facility] [address] [place] [address] Dr. Gasper Garber Urea nitrogen [Mass/Vol] 34.0 mg/dL Critically high 7.0-18.0 [facility] Comment on above: Performed By: #### P T, PTT #### [facility] [address] [place] [address] Dr. Gasper Garber Urea nitrogen/Creatinine [Mass ratio] 16.6 mg/mg Normal [facility] Comment on above: Performed By: #### P T, PTT #### [facility] [address] [place] [address] Dr. Gasper Garber BNPon 07-27-2021 Natriuretic peptide B (Bld) [Mass/Vol] 1454.0 pg/mL Critically high <=900.0 [facility] Comment on above: Performed By: #### BERNIE MALDONADO #### [facility] [address] [place] [address] Dr. Gasper Garber CBC AUTO DIFFon 07-27-2021 BASO # 0.1 103/ul Normal 0.0-0.1 [facility] Comment on above: Performed By: #### BERNIE MALDONADO #### [facility] [address] [place] [address] Dr. Gasper Garber Basophils/100 WBC (Bld) 0.7 % Normal 0.2-2.0 [facility] Comment on above: Performed By: #### TONI MALDONADORO #### [facility] [facility] [address] [place] [address] Dr. Gasper Garber EO # 0.3 103/ul Normal 0.0-0.7 [facility] Comment on above: Performed By: #### TONI MALDONADORO #### [facility] [address] [place] [address] Dr. Gasper Garber Eosinophils/100 WBC (Bld) 4.3 % Normal 0.9-7.0 [facility] Comment on above: Performed By: #### TONI MALDONADORO #### [facility] [address] [place] [address] Dr. Gasper Garber Erythrocyte distribution width (RBC) [Ratio] 13.0 % Normal 11.0-15.0 [facility] Comment on above: Performed By: #### TONI MALDONADORO #### [facility] [address] [place] [address] Dr. Gasper Garber Hematocrit (Bld) [Volume fraction] 34.5 % Critically low 36.0-48.0 [facility] Comment on above: Performed By: #### TONI MALDONADORO #### [facility] [address] [place] [address] Dr. Gasper Garber Hemoglobin (Bld) [Mass/Vol] 11.0 g/dL Critically low 12.0-16.0 [facility] Comment on above: Performed By: #### TONI MALDONADORO #### [facility] [address] [place] [address] Dr. Gasper Garber IG # 0.02 10e3/ul Normal 0.00-0.03 [facility] Comment on above: Performed By: #### TONI MALDONADORO #### [facility] [address] [place] [address] Dr. Gasper Garber IG % 0.3 % Normal 0.0-0.5 [facility] Comment on above: Performed By: #### TONI MALDONADORO #### [facility] [address] [place] [address] Dr. Gasper Garber LYMPH # 1.1 103/ul Critically low 1.2-3.8 [facility] Comment on above: Performed By: #### TONI MALDONADORO #### [facility] [address] [place] [address] Dr. Gasper Garber Lymphocytes/100 WBC (Bld) 14.3 % Critically low 20.5-60.0 [facility] Comment on above: Performed By: #### TONI MALDONADORO #### [facility] [address] [place] [address] Dr. Gasper Garber MANUAL DIFF REQ NO Normal [facility] Comment on above: Performed By: #### TONI MALDONADORO #### [facility] [address] [place] [address] Dr. Gasper Garber MCH (RBC) [Entitic mass] 30.9 pg Normal 26.7-34.0 [facility] Comment on above: Performed By: #### TONI MALDONADORO #### [facility] [address] [place] [address] Dr. Gasper Garber MCHC (RBC) [Mass/Vol] 31.9 g/dL Normal 29.9-35.2 [facility] Comment on above: Performed By: #### TONI MALDONADORO #### [facility] [address] [place] [address] Dr. Gasper Garber MCV (RBC) [Entitic vol] 96.9 fL Normal 81.0-99.0 [facility] Comment on above: Performed By: #### JOANNE MALDONADOICRO #### [facility] [address] [place] [address] Dr. Gasper Garber MONO # 0.7 103/ul Normal 0.3-0.8 [facility] Comment on above: Performed By: #### JOANNE MALDONADOICRO #### [facility] [address] [place] [address] Dr. Gasper Garber Monocytes/100 WBC (Bld) 9.3 % Normal 1.7-12.0 [facility] Comment on above: Performed By: #### Bernice HERNDON UMICRO #### [facility] [address] [place] [address] Dr. Gasper Garber NEUT # 5.4 103/ul Normal 1.4-6.5 [facility] Comment on above: Performed By: #### Bernice HERNDON UMICRO #### [facility] [address] [place] [address] Dr. Gasper Garber Neutrophils/100 WBC (Bld) 71.1 % Normal 43.0-75.0 [facility] Comment on above: Performed By: #### Bernice HERNDON UMICRO #### [facility] [address] [place] [address] Dr. Gasper Garber Platelet mean volume (Bld) [Entitic vol] 10.2 fL Normal 9.5-13.5 [facility] Comment on above: Performed By: #### Bernice HERNDON UMICRO #### [facility] [address] [place] [address] Dr. Gasper Garber PLT 284 103/ul Normal 150-450 [facility] Comment on above: Performed By: #### Bernice HERNDON UMICRO #### [facility] [address] [place] [address] Dr. Gasper Garber RBC 3.56 106/ul Critically low 4.20-5.40 [facility] Comment on above: Performed By: #### Bernice HERNDON UMICRO #### [facility] [address] [place] [address] Dr. Gasper Garber WBC 7.6 103/ul Normal 4.0-11.0 [facility] Comment on above: Performed By: #### Bernice HERNDON UMICRO #### [facility] [address] [place] [address] Dr. Gasper Garber PROF CHEM 8 (BAS METB)on Anion gap [Moles/Vol] 15.3 mmol/L Normal [facility] Comment on above: Performed By: #### Bernice HERNDON UMICRO #### [facility] [address] [place] [address] Dr. Gasper Garber Calcium [Mass/Vol] 9.1 mg/dL Normal 8.5-10.1 [facility] Comment on above: Performed By: #### TONI MALDONADORO #### [facility] [address] [address] [address] Gasper Garber Chloride [Moles/Vol] 100 mmol/L Normal 98-107 [facility] Comment on above: Performed By: #### Bernice HERNDON UMICRO #### [facility] [address] [place] [address] Dr. Gasper Garber CO2 [Moles/Vol] 26.8 mmol/L Normal 21.0-32.0 [facility] Comment on above: Performed By: #### TONI MALDONADORO #### [facility] [address] [place] [address] Dr. Gasper Garber Creatinine [Mass/Vol] 2.83 mg/dL Critically high 0.55-1.02 [facility] Comment on above: Performed By: #### TONI MALDONADORO #### [facility] [address] [place] [address] Dr. Gasper Garber EGFR-AF [place] 20 mL/min/1.73m2 Critically low >=60 [facility] Comment on above: Performed By: #### Bernice HERNDON UMICRO #### [facility] [address] [place] [address] Dr. Gasper Garber EGFR-NON AF [place] 16 mL/min/1.73m2 Critically low >=60 [facility] Comment on above: Performed By: #### Bernice HERNDON UMICRO #### [facility] [address] [place] [address] Dr. Gasper Garber Glucose [Mass/Vol] 141 mg/dL Critically high 74-106 [facility] Comment on above: Performed By: #### Bernice HERNDON, UMICRO #### [facility] [address] [place] [address] Dr. Gasper Garber Potassium [Moles/Vol] 4.1 mmol/L Normal 3.5-5.1 [facility] Comment on above: Performed By: #### E TONI HERNDONRO #### [facility] [address] [place] [address] Dr. Gasper Garber Sodium [Moles/Vol] 138 mmol/L Normal 136-145 [facility] Comment on above: Performed By: #### E TONI HERNDONRO #### [facility] [address] [place] [address] Dr. Gasper Garber Urea nitrogen [Mass/Vol] 48.0 mg/dL Critically high 7.0-18.0 [facility] Comment on above: Performed By: #### E TONI HERNDONRO #### [facility] [address] [place] [address] Dr. Gasper Garber Urea nitrogen/Creatinine [Mass ratio] 17.0 mg/mg Normal [facility] Comment on above: Performed By: #### E TONI HERNDONRO #### [facility] [address] [place] [address] Dr. Gasper Garber CULTURE URINEon 07-18-2021 CULTURE URINE Isolate 1 Klebsiella pneumoniae >100,000 cfu/mL of ORGANISM 1 Klebsiella pneumoniae ANTIBIOTIC M.I.C RX STATUS Ampicillin 8 R F Ampicillin/Sulbactam <=2 S F Piperacillin/Tazobactam <=4 S F Cefazolin <=4 S F Ceftazidime <=1 S F Ceftriaxone <=1 S F Ertapenem <=0.5 S F Imipenem <=0.25 S F Amikacin <=2 S F Gentamicin <=1 S F Tobramycin <=1 S F Ciprofloxacin <=0.25 S F Levofloxacin <=0.12 S F Nitrofurantoin 64 I F Trimethoprim/Sulfamethoxazo le <=20 S F Normal [facility] Comment on above: Performed By: #### A CETON #### [facility] [address] [place] [address] Dr. Gasper Garber BNPon 07-17-2021 Natriuretic peptide B (Bld) [Mass/Vol] 2592.0 pg/mL Critically high <=900.0 [facility] Comment on above: Performed By: #### U RCX #### [facility] [address] [address] [address] Gasper Garber CBC AUTO DIFFon 07-17-2021 BASO # 0.0 103/ul Normal 0.0-0.1 [facility] Comment on above: Performed By: #### L ACT #### [facility] [address] [address] [address] Gasper Garber Basophils/100 WBC (Bld) 0.4 % Normal 0.2-2.0 [facility] Comment on above: Performed By: #### L ACT #### [facility] [address] [address] [address] Gasper Garber EO # 0.3 103/ul Normal 0.0-0.7 [facility] Comment on above: Performed By: #### L ACT #### [facility] [address] [place] [address] Dr. Gasper Garber Eosinophils/100 WBC (Bld) 4.3 % Normal 0.9-7.0 [facility] Comment on above: Performed By: #### L ACT #### [facility] [address] [place] [address] Dr. Gasper Garber Erythrocyte distribution width (RBC) [Ratio] 12.5 % Normal 11.0-15.0 [facility] Comment on above: Performed By: #### L ACT #### [facility] [address] [place] [address] Dr. Gasper Garber Hematocrit (Bld) [Volume fraction] 30.3 % Critically low 36.0-48.0 [facility] Comment on above: Performed By: #### L ACT #### [facility] [address] [place] [address] Dr. Gasper Garber Hemoglobin (Bld) [Mass/Vol] 9.8 g/dL Critically low 12.0-16.0 [facility] Comment on above: Performed By: #### L ACT #### [facility] [address] [place] [address] Dr. Gasper Garber IG # 0.02 10e3/ul Normal 0.00-0.03 [facility] Comment on above: Performed By: #### L ACT #### [facility] [address] [place] [address] Dr. Gasper Garber IG % 0.3 % Normal 0.0-0.5 [facility] Comment on above: Performed By: #### L ACT #### [facility] [address] [place] [address] Dr. Gasper Garber LYMPH # 1.5 103/ul Normal 1.2-3.8 [facility] Comment on above: Performed By: #### L ACT #### [facility] [address] [place] [address] Dr. Gasper Garber Lymphocytes/100 WBC (Bld) 19.8 % Critically low 20.5-60.0 [facility] Comment on above: Performed By: #### L ACT #### [facility] [address] [place] [address] Dr. Gasper Garber MANUAL DIFF REQ NO Normal [facility] Comment on above: Performed By: #### L ACT #### [facility] [address] [place] [address] Dr. Gasper Garber MCH (RBC) [Entitic mass] 31.3 pg Normal 26.7-34.0 [facility] Comment on above: Performed By: #### L ACT #### [facility] [address] [place] [address] Dr. Gasper Garber MCHC (RBC) [Mass/Vol] 32.3 g/dL Normal 29.9-35.2 [facility] Comment on above: Performed By: #### L ACT #### [facility] [address] [place] [address] Dr. Gasper Garber MCV (RBC) [Entitic vol] 96.8 fL Normal 81.0-99.0 [facility] Comment on above: Performed By: #### L ACT #### [facility] [address] [place] [address] Dr. Gasper Garber MONO # 0.9 103/ul Critically high 0.3-0.8 [facility] Comment on above: Performed By: #### L ACT #### [facility] [address] [address] [address] Gasper Garber Monocytes/100 WBC (Bld) 11.7 % Normal 1.7-12.0 [facility] Comment on above: Performed By: #### L ACT #### [facility] [address] [address] [address] Gasper Garber NEUT # 4.8 103/ul Normal 1.4-6.5 [facility] Comment on above: Performed By: #### L ACT #### [facility] [address] [place] [address] Dr. Gasper Garber Neutrophils/100 WBC (Bld) 63.5 % Normal 43.0-75.0 [facility] Comment on above: Performed By: #### L ACT #### [facility] [address] [place] [address] Dr. Gasper Garber Platelet mean volume (Bld) [Entitic vol] 10.9 fL Normal 9.5-13.5 [facility] Comment on above: Performed By: #### L ACT #### [facility] [address] [place] [address] Dr. Gasper Garber PLT 193 103/ul Normal 150-450 [facility] Comment on above: Performed By: #### L ACT #### [facility] [address] [place] [address] Dr. Gasper Garber RBC 3.13 106/ul Critically low 4.20-5.40 [facility] Comment on above: Performed By: #### L ACT #### [facility] [address] [place] [address] Dr. Gasper Garber WBC 7.5 103/ul Normal 4.0-11.0 [facility] Comment on above: Performed By: #### L ACT #### [facility] [address] [place], [place] [id number] Dr. Gasper Garber POINT OF CARE GLUCOSEon 05- Glucose [Mass/Vol] 244 mg/dL Critically high 74-106 [facility] Comment on above: Performed By: #### L ACT #### [facility] [address] [address] [address] Gasper Garber Glucose [Mass/Vol] 151 mg/dL Critically high 74-106 [facility] Comment on above: Performed By: #### E BERNIE HERNDON #### [facility] [address] [place] [address] Dr. Gasper Garber PROF 14(COMP METB)on 022 Albumin [Mass/Vol] 2.9 g/dL Critically low 3.4-5.0 [facility] Comment on above: Performed By: #### U RCX #### [facility] [address] [place] [address] Dr. Gasper Garber Albumin/Globulin [Mass ratio] 1.0 {ratio} Normal [facility] Comment on above: Performed By: #### U RCX #### [facility] [address] [place] [address] Dr. Gasper Garber ALP [Catalytic activity/Vol] 63 U/L Normal 46-116 [facility] Comment on above: Performed By: #### U RCX #### [facility] [address] [place] [address] Dr. Gasper Garber ALT [Catalytic activity/Vol] 33 U/L Normal 14-59 [facility] Comment on above: Performed By: #### U RCX #### [facility] [address] [place] [address] Dr. Gasper Garber Anion gap [Moles/Vol] 13.1 mmol/L Normal [facility] Comment on above: Performed By: #### U RCX #### [facility] [address] [place] [address] Dr. Gasper Garber AST [Catalytic activity/Vol] 30 U/L Normal 15-37 [facility] Comment on above: Performed By: #### U RCX #### [facility] [address] [place] [address] Dr. Gasper Garber Bilirubin [Mass/Vol] 0.3 mg/dL Normal 0.2-1.0 [facility] Comment on above: Performed By: #### U RCX #### [facility] [address] [address] [address] Gasper Garber Calcium [Mass/Vol] 8.7 mg/dL Normal 8.5-10.1 [facility] Comment on above: Performed By: #### U RCX #### [facility] [address] [address] [address] Gasper Garber Chloride [Moles/Vol] 109 mmol/L Critically high 98-107 [facility] Comment on above: Performed By: #### U RCX #### [facility] [address] [address] [address] Gasper Garber CO2 [Moles/Vol] 24.5 mmol/L Normal 21.0-32.0 [facility] Comment on above: Performed By: #### U RCX #### [facility] [address] [address] [address] Gasper Garber Creatinine [Mass/Vol] 1.33 mg/dL Critically high 0.55-1.02 [facility] Comment on above: Performed By: #### U RCX #### [facility] [address] [address] [address] Gasper Garber EGFR-AF [place] 47 mL/min/1.73m2 Critically low >=60 [facility] Comment on above: Performed By: #### U RCX #### [facility] [address] [address] [address] Gasper Garber EGFR-NON AF [place] 39 mL/min/1.73m2 Critically low >=60 [facility] Comment on above: Performed By: #### U RCX #### [facility] [address] [address] [address] Gasper Garber Globulin (S) [Mass/Vol] 3.0 g/dL Normal [facility] Comment on above: Performed By: #### U RCX #### [facility] [address] [address] [address] Gasper Garber Glucose [Mass/Vol] 142 mg/dL Critically high 74-106 [facility] Comment on above: Performed By: #### U RCX #### [facility] [address] [place] [address] Dr. Gasper Garber Potassium [Moles/Vol] 3.6 mmol/L Normal 3.5-5.1 [facility] Comment on above: Performed By: #### U RCX #### [facility] [address] [place] [address] Dr. Gasper Garber Protein [Mass/Vol] 5.9 g/dL Critically low 6.4-8.2 [facility] Comment on above: Performed By: #### U RCX #### [facility] [address] [place] [address] Dr. Gasper Garber Sodium [Moles/Vol] 143 mmol/L Normal 136-145 [facility] Comment on above: Performed By: #### U RCX #### [facility] [address] [place] [address] Dr. Gasper Garber Urea nitrogen [Mass/Vol] 25.0 mg/dL Critically high 7.0-18.0 [facility] Comment on above: Performed By: #### U RCX #### [facility] [address] [place] [address] Dr. Gasper Garber Urea nitrogen/Creatinine [Mass ratio] 18.8 mg/mg Normal [facility] Comment on above: Performed By: #### U RCX #### [facility] [address] [place] [address] Dr. Gasper Garber BNPon 07-16-2021 Natriuretic peptide B (Bld) [Mass/Vol] 761.0 pg/mL Normal <=900.0 [facility] Comment on above: Performed By: #### P T, PTT #### [facility] [address] [place] [address] Dr. Gasper Garber CBC AUTO DIFFon 07-16-2021 BASO # 0.1 103/ul Normal 0.0-0.1 [facility] Comment on above: Performed By: #### L ACT #### [facility] [address] [place] [address] Dr. Gasper Garber Basophils/100 WBC (Bld) 0.6 % Normal 0.2-2.0 [facility] Comment on above: Performed By: #### L ACT #### [facility] [address] [place] [address] Dr. Gasper Garber EO # 0.2 103/ul Normal 0.0-0.7 [facility] Comment on above: Performed By: #### L ACT #### [facility] [address] [place] [address] Dr. Gasper Garber Performed By: #### P T, PTT #### [facility] [address] [place] [address] Dr. Gasper Garber Eosinophils/100 WBC (Bld) 2.3 % Normal 0.9-7.0 [facility] Comment on above: Performed By: #### L ACT #### [facility] [address] [place] [address] Dr. Gasper Garber Erythrocyte distribution width (RBC) [Ratio] 12.3 % Normal 11.0-15.0 [facility] Comment on above: Performed By: #### L ACT #### [facility] [address] [place] [address] Dr. Gasper Garber Hematocrit (Bld) [Volume fraction] 32.3 % Critically low 36.0-48.0 [facility] Comment on above: Performed By: #### L ACT #### [facility] [address] [place] [address] Dr. Gasper Garber Hemoglobin (Bld) [Mass/Vol] 10.3 g/dL Critically low 12.0-16.0 [facility] Comment on above: Performed By: #### L ACT #### [facility] [address] [place] [address] Dr. Gasper Garber IG # 0.01 10e3/ul Normal 0.00-0.03 [facility] Comment on above: Performed By: #### L ACT #### [facility] [address] [place] [address] Dr. Gasper Garber IG % 0.1 % Normal 0.0-0.5 [facility] Comment on above: Performed By: #### L ACT #### [facility] [address] [place] [address] Dr. Gasper Garber LYMPH # 1.1 103/ul Critically low 1.2-3.8 [facility] Comment on above: Performed By: #### L ACT #### [facility] [address] [place] [address] Dr. Gasper Garber Lymphocytes/100 WBC (Bld) 12.2 % Critically low 20.5-60.0 [facility] Comment on above: Performed By: #### L ACT #### [facility] [address] [place] [address] Dr. Gasper Garber MANUAL DIFF REQ NO Normal [facility] Comment on above: Performed By: #### L ACT #### [facility] [address] [place] [address] Dr. Gasper Garber Performed By: #### P T, PTT #### [facility] [address] [place] [address] Dr. Gasper Garber MCH (RBC) [Entitic mass] 30.8 pg Normal 26.7-34.0 [facility] Comment on above: Performed By: #### L ACT #### [facility] [address] [place] [address] Dr. Gasper Garber MCHC (RBC) [Mass/Vol] 31.9 g/dL Normal 29.9-35.2 [facility] Comment on above: Performed By: #### L ACT #### [facility] [address] [place] [address] Dr. Gasper Garber MCV (RBC) [Entitic vol] 96.7 fL Normal 81.0-99.0 [facility] Comment on above: Performed By: #### L ACT #### [facility] [address] [place] [address] Dr. Gasper Garber MONO # 0.8 103/ul Normal 0.3-0.8 [facility] Comment on above: Performed By: #### L ACT #### [facility] [address] [place] [address] Dr. Gasper Garber Monocytes/100 WBC (Bld) 8.8 % Normal 1.7-12.0 [facility] Comment on above: Performed By: #### L ACT #### [facility] [address] [address] [address] Gasper Garber NEUT # 6.5 103/ul Normal 1.4-6.5 [facility] Comment on above: Performed By: #### L ACT #### [facility] [address] [address] [address] Gasper Garber Neutrophils/100 WBC (Bld) 76.0 % Critically high 43.0-75.0 [facility] Comment on above: Performed By: #### L ACT #### [facility] [address] [place] [address] Dr. Gasper Garber Platelet mean volume (Bld) [Entitic vol] 10.6 fL Normal 9.5-13.5 [facility] Comment on above: Performed By: #### L ACT #### [facility] [address] [place] [address] Dr. Gasper Garber PLT 214 103/ul Normal 150-450 [facility] Comment on above: Performed By: #### L ACT #### [facility] [address] [place] [address] Dr. Gasper Garber RBC 3.34 106/ul Critically low 4.20-5.40 [facility] Comment on above: Performed By: #### L ACT #### [facility] [address] [place] [address] Dr. Gasper Garber WBC 8.6 103/ul Normal 4.0-11.0 [facility] Comment on above: Performed By: #### L ACT #### [facility] [address] [place] [address] Dr. Gasper Garber BASO # 0.0 103/ul Normal 0.0-0.1 [facility] Comment on above: Performed By: #### P T, PTT #### [facility] [address] [place] [address] Dr. Gasper Garber Basophils/100 WBC (Bld) 0.4 % Normal 0.2-2.0 [facility] Comment on above: Performed By: #### P T, PTT #### [facility] [address] [place] [address] Dr. Gasper Garber Eosinophils/100 WBC (Bld) 2.5 % Normal 0.9-7.0 [facility] Comment on above: Performed By: #### P T, PTT #### [facility] [address] [place] [address] Dr. Gasper Garber Erythrocyte distribution width (RBC) [Ratio] 12.4 % Normal 11.0-15.0 [facility] Comment on above: Performed By: #### P T, PTT #### [facility] [address] [place] [address] Dr. Gasper Garber Hematocrit (Bld) [Volume fraction] 29.3 % Critically low 36.0-48.0 [facility] Comment on above: Performed By: #### P T, PTT #### [facility] [address] [place] [address] Dr. Gasper Garber Hemoglobin (Bld) [Mass/Vol] 9.5 g/dL Critically low 12.0-16.0 [facility] Comment on above: Performed By: #### P T, PTT #### [facility] [address] [place] [address] Dr. Gasper Garber IG # 0.02 10e3/ul Normal 0.00-0.03 [facility] Comment on above: Performed By: #### P T, PTT #### [facility] [address] [place] [address] Dr. Gasper Garber IG % 0.2 % Normal 0.0-0.5 [facility] Comment on above: Performed By: #### P T, PTT #### [facility] [address] [place] [address] Dr. Gasper Garber LYMPH # 1.3 103/ul Normal 1.2-3.8 [facility] Comment on above: Performed By: #### P T, PTT #### [facility] [address] [place] [address] Dr. Gasper Garber Lymphocytes/100 WBC (Bld) 16.4 % Critically low 20.5-60.0 [facility] Comment on above: Performed By: #### P T, PTT #### [facility] [address] [place] [address] Dr. Gasper Garber MCH (RBC) [Entitic mass] 31.3 pg Normal 26.7-34.0 [facility] Comment on above: Performed By: #### P T, PTT #### [facility] [address] [place] [address] Dr. Gasper Garber MCHC (RBC) [Mass/Vol] 32.4 g/dL Normal 29.9-35.2 [facility] Comment on above: Performed By: #### P T, PTT #### [facility] [address] [place] [address] Dr. Gasper Garber MCV (RBC) [Entitic vol] 96.4 fL Normal 81.0-99.0 [facility] Comment on above: Performed By: #### P T, PTT #### [facility] [address] [place] [address] Dr. Gasper Garber MONO # 0.9 103/ul Critically high 0.3-0.8 [facility] Comment on above: Performed By: #### P T, PTT #### [facility] [address] [place] [address] Dr. Gasper Garber Monocytes/100 WBC (Bld) 10.5 % Normal 1.7-12.0 [facility] Comment on above: Performed By: #### P T, PTT #### [facility] [address] [place] [address] Dr. Gasper Garber NEUT # 5.7 103/ul Normal 1.4-6.5 [facility] Comment on above: Performed By: #### P T, PTT #### [facility] [address] [place] [address] Dr. Gasper Garber Neutrophils/100 WBC (Bld) 70.0 % Normal 43.0-75.0 [facility] Comment on above: Performed By: #### P T, PTT #### [facility] [address] [place] [address] Dr. Gasper Garber Platelet mean volume (Bld) [Entitic vol] 10.9 fL Normal 9.5-13.5 [facility] Comment on above: Performed By: #### P T, PTT #### [facility] [address] [place] [address] Dr. Gasper Garber PLT 203 103/ul Normal 150-450 [facility] Comment on above: Performed By: #### P T, PTT #### [facility] [address] [place] [address] Dr. Gasper Garber RBC 3.04 106/ul Critically low 4.20-5.40 [facility] Comment on above: Performed By: #### P T, PTT #### [facility] [address] [place] [address] Dr. Gasper Garber WBC 8.2 103/ul Normal 4.0-11.0 [facility] Comment on above: Performed By: #### P T, PTT #### [facility] [address] [place] [address] Dr. Gasper Garber CULTURE BLOODon 07-16-2021 Microscopic examination of blood, culture Culture Observations: NO GROWTH AT 5 DAYS. Normal [facility] Comment on above: Performed By: #### B [id number] #### [facility] [address] [place] [address] Dr. Gasper Garber Microscopic examination of blood, culture Culture Observations: NO GROWTH AT 5 DAYS. Normal [facility] Comment on above: Performed By: #### A CETON #### [facility] [address] [place] [address] Dr. Gasper Garber POINT OF CARE GLUCOSEon 06-20 Glucose [Mass/Vol] 155 mg/dL Critically high 74-106 [facility] Comment on above: Performed By: #### P T, PTT #### [facility] [address] [place] [address] Dr. Gasper Garber Glucose [Mass/Vol] 165 mg/dL Critically high 74-106 [facility] Comment on above: Performed By: #### P OCGLUC #### [facility] [address] [place] [address] Dr. Gasper Garber Glucose [Mass/Vol] 232 mg/dL Critically high 74-106 [facility] Comment on above: Performed By: #### E BERNIE HERNDON #### [facility] [address] [place] [address] Dr. Gasper Garber PROF 14(COMP METB)on 022 Albumin [Mass/Vol] 2.9 g/dL Critically low 3.4-5.0 [facility] Comment on above: Performed By: #### P T, PTT #### [facility] [address] [place] [address] Dr. Gasper Garber Albumin/Globulin [Mass ratio] 1.0 {ratio} [facility] Comment on above: Performed By: #### P T, PTT #### [facility] [address] [place] [address] Dr. Gasper Garber ALP [Catalytic activity/Vol] 62 U/L Normal 46-116 [facility] Comment on above: Performed By: #### P T, PTT #### [facility] [address] [place] [address] Dr. Gasper Garber ALT [Catalytic activity/Vol] 34 U/L Normal 14-59 [facility] Comment on above: Performed By: #### P T, PTT #### [facility] [address] [place] [address] Dr. Gasper Garber Anion gap [Moles/Vol] 10.8 mmol/L Normal [facility] Comment on above: Performed By: #### P T, PTT #### [facility] [address] [place] [address] Dr. Gasper Garber AST [Catalytic activity/Vol] 14 U/L Critically low 15-37 [facility] Comment on above: Performed By: #### P T, PTT #### [facility] [address] [place] [address] Dr. Gasper Garber Bilirubin [Mass/Vol] 0.4 mg/dL Normal 0.2-1.0 [facility] Comment on above: Performed By: #### P T, PTT #### [facility] [address] [address] [address] Gasper Garber Calcium [Mass/Vol] 8.4 mg/dL Critically low 8.5-10.1 [facility] Comment on above: Performed By: #### P T, PTT #### [facility] [address] [address] [address] Gasper Garber Chloride [Moles/Vol] 105 mmol/L Normal 98-107 [facility] Comment on above: Performed By: #### P T, PTT #### [facility] [address] [place] [address] Dr. Gasper Garber CO2 [Moles/Vol] 26.3 mmol/L Normal 21.0-32.0 [facility] Comment on above: Performed By: #### P T, PTT #### [facility] [address] [place] [address] Dr. Gasper Garber Creatinine [Mass/Vol] 2.20 mg/dL Critically high 0.55-1.02 [facility] Comment on above: Performed By: #### P T, PTT #### [facility] [address] [place] [address] Dr. Gasper Garber EGFR-AF [place] 26 mL/min/1.73m2 Critically low >=60 [facility] Comment on above: Performed By: #### P T, PTT #### [facility] [address] [place] [address] Dr. Gasper Garber EGFR-NON AF [place] 22 mL/min/1.73m2 Critically low >=60 [facility] Comment on above: Performed By: #### P T, PTT #### [facility] [address] [place] [address] Dr. Gasper Garber Globulin (S) [Mass/Vol] 2.9 g/dL Normal [facility] Comment on above: Performed By: #### P T, PTT #### [facility] [address] [place] [address] Dr. Gasper Garber Glucose [Mass/Vol] 167 mg/dL Critically high 74-106 [facility] Comment on above: Performed By: #### P T, PTT #### [facility] [address] [address] [address] Gasper Garber Potassium [Moles/Vol] 3.1 mmol/L Critically low 3.5-5.1 [facility] Comment on above: Performed By: #### P T, PTT #### [facility] [address] [address] [address] Gasper Garber Protein [Mass/Vol] 5.8 g/dL Critically low 6.4-8.2 [facility] Comment on above: Performed By: #### P T, PTT #### [facility] [address] [place] [address] Dr. Gasper Garber Sodium [Moles/Vol] 139 mmol/L Normal 136-145 [facility] Comment on above: Performed By: #### P T, PTT #### [facility] [address] [place] [address] Dr. Gasper Garber Urea nitrogen [Mass/Vol] 41.0 mg/dL Critically high 7.0-18.0 [facility] Comment on above: Performed By: #### P T, PTT #### [facility] [address] [place] [address] Dr. Gasper Garber Urea nitrogen/Creatinine [Mass ratio] 18.6 mg/mg Normal [facility] Comment on above: Performed By: #### P T, PTT #### [facility] [address] [place] [address] Dr. Gasper Garber CBC AUTO DIFFon 07-15-2021 BASO # 0.0 103/ul Normal 0.0-0.1 [facility] Comment on above: Performed By: #### P T, PTT #### [facility] [address] [place] [address] Dr. Gasper Garber Basophils/100 WBC (Bld) 0.4 % Normal 0.2-2.0 [facility] Comment on above: Performed By: #### P T, PTT #### [facility] [address] [place] [address] Dr. Gasper Garber EO # 0.2 103/ul Normal 0.0-0.7 [facility] Comment on above: Performed By: #### P T, PTT #### [facility] [address] [place] [address] Dr. Gasper Garber Eosinophils/100 WBC (Bld) 1.6 % Normal 0.9-7.0 [facility] Comment on above: Performed By: #### P T, PTT #### [facility] [address] [place] [address] Dr. Gasper Garber Erythrocyte distribution width (RBC) [Ratio] 12.4 % Normal 11.0-15.0 [facility] Comment on above: Performed By: #### P T, PTT #### [facility] [address] [place] [address] Dr. Gasper Garber Hematocrit (Bld) [Volume fraction] 34.7 % Critically low 36.0-48.0 [facility] Comment on above: Performed By: #### P T, PTT #### [facility] [address] [place] [address] Dr. Gasper Garber Hemoglobin (Bld) [Mass/Vol] 11.4 g/dL Critically low 12.0-16.0 [facility] Comment on above: Performed By: #### P T, PTT #### [facility] [address] [place] [address] Dr. Gasper Garber IG # 0.02 10e3/ul Normal 0.00-0.03 [facility] Comment on above: Performed By: #### P T, PTT #### [facility] [address] [place] [address] Dr. Gasper Garber IG % 0.2 % Normal 0.0-0.5 [facility] Comment on above: Performed By: #### P T, PTT #### [facility] [address] [place] [address] Dr. Gasper Garber LYMPH # 1.6 103/ul Normal 1.2-3.8 [facility] Comment on above: Performed By: #### P T, PTT #### [facility] [address] [place] [address] Dr. Gasper Garber Lymphocytes/100 WBC (Bld) 17.7 % Critically low 20.5-60.0 [facility] Comment on above: Performed By: #### P T, PTT #### [facility] [address] [place] [address] Dr. Gasper Garber MANUAL DIFF REQ NO Normal [facility] Comment on above: Performed By: #### P T, PTT #### [facility] [address] [place] [address] Dr. Gasper Garber MCH (RBC) [Entitic mass] 31.1 pg Normal 26.7-34.0 [facility] Comment on above: Performed By: #### P T, PTT #### [facility] [address] [place] [address] Dr. Gasper Garber MCHC (RBC) [Mass/Vol] 32.9 g/dL Normal 29.9-35.2 [facility] Comment on above: Performed By: #### P T, PTT #### [facility] [address] [place] [address] Dr. Gasper Garber MCV (RBC) [Entitic vol] 94.8 fL Normal 81.0-99.0 [facility] Comment on above: Performed By: #### P T, PTT #### [facility] [address] [place] [address] Dr. Gasper Garber MONO # 1.0 103/ul Critically high 0.3-0.8 [facility] Comment on above: Performed By: #### P T, PTT #### [facility] [address] [place] [address] Dr. Gasper Garber Monocytes/100 WBC (Bld) 10.3 % Normal 1.7-12.0 [facility] Comment on above: Performed By: #### P T, PTT #### [facility] [address] [place] [address] Dr. Gasper Garber NEUT # 6.4 103/ul Normal 1.4-6.5 [facility] Comment on above: Performed By: #### P T, PTT #### [facility] [address] [place] [address] Dr. Gasper Garber Neutrophils/100 WBC (Bld) 69.8 % Normal 43.0-75.0 [facility] Comment on above: Performed By: #### P T, PTT #### [facility] [address] [address] [address] Gasper Garber Platelet mean volume (Bld) [Entitic vol] 10.4 fL Normal 9.5-13.5 [facility] Comment on above: Performed By: #### P T, PTT #### [facility] [address] [address] [address] Gasper Garber PLT 269 103/ul Normal 150-450 [facility] Comment on above: Performed By: #### P T, PTT #### [facility] [address] [place] [address] Dr. Gasper Garber RBC 3.66 106/ul Critically low 4.20-5.40 [facility] Comment on above: Performed By: #### P T, PTT #### [facility] [address] [place] [address] Dr. Gasper Garber WBC 9.2 103/ul Normal 4.0-11.0 [facility] Comment on above: Performed By: #### P T, PTT #### [facility] [address] [place] [address] ABD/PELVIS WO CONon 07-15 CT ABD/PELVIS WO CON CT ABDOMEN AND PELV IS WITHOUT CONTRAST HISTORY: Abdominal pain. Black tarry stools. COMPARISON: CT 12/02/2020. METHOD: Dose reduction techniques were achieved by using automated exposure control and/or adjustment of mA and/or kV according to patient size and/or use of iterative reconstruction technique. FINDINGS: The lung bases are clear. The evaluation of solid organs is limited with no IV contrast. The evaluation for lymphadenopathy is very limited with no IV contrast. There is no intrahepatic biliary ductal dilatation. The spleen is normal in size. The adrenal glands are normal appearing. There are no renal stones or hydronephrosis. There is no bowel wall thickening or obstruction. There are vascular calcifications. There is a small right periumbilical hernia with fat. There is no free fluid. There is no free air. There is air within the bladder. The uterus has been removed. There are no acute bony abnormality. IMPRESSION: Air within the bladder which may be echogenic, could be related to a urinary tract infection. Correlate urinalysis. Small right periumbilical hernia with fat. Atherosclerotic disease. Electronically authenticated by: NASRIN CHIU Date: 2021-07-15 18:16 Normal [facility] SARS-CoV-2 (COVID-19) RNA ANA LUISA+probe Ql (Unsp spec) Not detected Normal NOT DETECTED [facility] Comment on above: Result Comment: When diagnostic testing is negative, the possibility of a false negative should be considered in the context of a patient's recent exposures and the presence of clinical signs and symptoms consistent with SARS-CoV-2. This test is not yet approved or cleared by the [place] FDA. When there are no FDA-approved or cleared tests available, and other criteria are met, FDA can make tests available under an emergency access mechanism called an Emergency Use Authorization (EUA). The EUA for this test is supported by the [place] of Health and Human Service's declaration that circumstances exist to justify the emergency use of in vitro diagnostics for the detection and/or diagnosis of the virus that causes COVID-19. This EUA will remain in effect for the duration of the COVID-19 declaration justifying emergency of IVDs, unless it is terminated or revoked by the FDA (after which the test may no longer be used). Performed By: #### L ACT #### [facility] [address] [place] [address] Dr. Gasper Garber ER URINE PROFILEon 2 Bilirubin Ql (U) Negative Normal NEGATIVE [facility] Comment on above: Performed By: #### E BERNIE HERNDON #### [facility] [address] [place] [address] Dr. Gasper Garber Clarity (U) CLEAR Normal CLEAR [facility] Comment on above: Performed By: #### E TONI HERNDONRO #### [facility] [address] [place] [address] Dr. Gasper Garber Color (U) LT. YELLOW Normal YELLOW [facility] Comment on above: Performed By: #### Bernice HERNDON UMICRO #### [facility] [address] [address] [address] Gasper RIVAS A micrscopic examina tion will be performed if indicated. Normal [facility] Comment on above: Performed By: #### Bernice HERNDON UMICRO #### [facility] [address] [address] [address] Gasper Garber Glucose Ql (U) Negative Normal NEGATIVE [facility] Comment on above: Performed By: #### Bernice HERNDON UMICRO #### [facility] [address] [place] [address] Dr. Gasper Garber Hemoglobin Ql (U) Negative Normal NEGATIVE [facility] Comment on above: Performed By: #### Bernice HERNDON UMICRO #### [facility] [address] [place] [address] Dr. Gasper Garber Ketones Ql (U) Negative Normal NEGATIVE [facility] Comment on above: Performed By: #### Bernice HERNDON UMICRO #### [facility] [address] [place] [address] Dr. Gasper Garber LEUKOCYTES Negative Normal NEGATIVE [facility] Comment on above: Performed By: #### Bernice HERNDON UMICRO #### [facility] [address] [place] [address] Dr. Gasper Garber Nitrite Ql (U) Negative Normal NEGATIVE [facility] Comment on above: Performed By: #### JOANNE MALDONADOICRO #### [facility] [address] [place] [address] Dr. Gasper Garber pH (U) 5.5 [pH] Normal 5-9 [facility] Comment on above: Performed By: #### JOANNE MALDONADOICRO #### [facility] [address] [place] [address] Dr. Gasper Garber SPEC GRAVITY 1.020 Normal 1.005-<=1.0 25 [facility] Comment on above: Performed By: #### JOANNE MALDONADOICRO #### [facility] [address] [place] [address] Dr. Gasper Garber UA PROTEIN TRACE Normal NEGATIVE/ TRACE [facility] Comment on above: Performed By: #### TONI MALDONADORO #### [facility] [address] [place] [address] Dr. Gasper Garber UR MICRO IND INDICATED Normal [facility] Comment on above: Performed By: #### Bernice HERNDON UMICRO #### [facility] [address] [place] [address] Dr. Gasper Garber Urobilinogen Qn (U) 0.2 {Kaushik'U}/dL Normal 0.2 - 1. 0 [facility] Comment on above: Performed By: #### TONI MALDONADORO #### [facility] [address] [place] [address] Dr. Gasper Garber FREE T3on 07-15-2021 FREE T3 2.45 pg/mlL Normal 2.18-3.98 [facility] Comment on above: Performed By: #### P T, PTT #### [facility] [address] [place] [address] Dr. Gasper Garber FREE T4on 07-15-2021 Free T4 [Mass/Vol] 1.19 ng/dL Normal 0.76-1.46 [facility] Comment on above: Performed By: #### A CETON #### [facility] [address] [place] [address] Dr. Gasper Garber LACTATE/LACTIC ACIDon 2021 Lactate [Moles/Vol] 2.0 mmol/L Critically high 0.4-1.9 [facility] Comment on above: Performed By: #### L ACT #### [facility] [address] [place] [address] Dr. Gasper Garber Lactate [Moles/Vol] 4.0 mmol/L Critically high 0.4-1.9 [facility] Comment on above: Performed By: #### L ACT #### [facility] [address] [place] [address] Dr. Gasper Garber LIPASEon 07-15-2021 Lipase [Catalytic activity/Vol] 93.0 U/L Normal 73.0-393.0 [facility] Comment on above: Performed By: #### A CETON #### [facility] [address] [place] [address] Dr. Gasper Garber POINT OF CARE GLUCOSEon 06-20 Glucose [Mass/Vol] 200 mg/dL Critically high 74-106 [facility] Comment on above: Performed By: #### P T, PTT #### [facility] [address] [place] [address] Dr. Gasper Garber PROF 14(COMP METB)on 022 Albumin [Mass/Vol] 3.5 g/dL Normal 3.4-5.0 [facility] Comment on above: Performed By: #### A CETON #### [facility] [address] [place] [address] Dr. Gasper Garber Albumin/Globulin [Mass ratio] 1.0 {ratio} Normal [facility] Comment on above: Performed By: #### A CETON #### [facility] [address] [place] [address] Dr. Gasper Garber ALP [Catalytic activity/Vol] 81 U/L Normal 46-116 [facility] Comment on above: Performed By: #### A CETON #### [facility] [address] [place] [address] Dr. Gasper Garber ALT [Catalytic activity/Vol] 43 U/L Normal 14-59 [facility] Comment on above: Performed By: #### A CETON #### [facility] [address] [place] [address] Dr. Gasper Garber Anion gap [Moles/Vol] 13.6 mmol/L Normal [facility] Comment on above: Performed By: #### A CETON #### [facility] [address] [place] [address] Dr. Gasper Garber AST [Catalytic activity/Vol] 19 U/L Normal 15-37 [facility] Comment on above: Performed By: #### A CETON #### [facility] [address] [place] [address] Dr. Gasper Garber Bilirubin [Mass/Vol] 0.6 mg/dL Normal 0.2-1.0 [facility] Comment on above: Performed By: #### A CETON #### [facility] [address] [place] [address] Dr. Gasper Garber Calcium [Mass/Vol] 8.9 mg/dL Normal 8.5-10.1 [facility] Comment on above: Performed By: #### A CETON #### [facility] [address] [address] [address] Gasper Garber Chloride [Moles/Vol] 103 mmol/L Normal 98-107 [facility] Comment on above: Performed By: #### A CETON #### [facility] [address] [place] [address] Dr. Gasper Garber CO2 [Moles/Vol] 25.9 mmol/L Normal 21.0-32.0 [facility] Comment on above: Performed By: #### A CETON #### [facility] [address] [place] [address] Dr. Gasper Garber Creatinine [Mass/Vol] 2.91 mg/dL Critically high 0.55-1.02 [facility] Comment on above: Performed By: #### A CETON #### [facility] [address] [place] [address] Dr. Gasper Garber EGFR-AF [place] 19 mL/min/1.73m2 Critically low >=60 [facility] Comment on above: Performed By: #### A CETON #### [facility] [address] [place] [address] Dr. Gasper Garber EGFR-NON AF [place] 16 mL/min/1.73m2 Critically low >=60 [facility] Comment on above: Performed By: #### A CETON #### [facility] [address] [place] [address] Dr. Gasper Garber Globulin (S) [Mass/Vol] 3.5 g/dL Normal [facility] Comment on above: Performed By: #### A CETON #### [facility] [address] [place] [address] Dr. Gasper Garber Glucose [Mass/Vol] 201 mg/dL Critically high 74-106 [facility] Comment on above: Performed By: #### A CETON #### [facility] [address] [address] [address] Gasper Garber Potassium [Moles/Vol] 3.5 mmol/L Normal 3.5-5.1 [facility] Comment on above: Performed By: #### A CETON #### [facility] [address] [address] [address] Gasper Garber Protein [Mass/Vol] 7.0 g/dL Normal 6.4-8.2 [facility] Comment on above: Performed By: #### A CETON #### [facility] [address] [place] [address] Dr. Gasper Garber Sodium [Moles/Vol] 139 mmol/L Normal 136-145 [facility] Comment on above: Performed By: #### A CETON #### [facility] [address] [place] [address] Dr. Gasper Garber Urea nitrogen [Mass/Vol] 46.0 mg/dL Critically high 7.0-18.0 [facility] Comment on above: Performed By: #### A CETON #### [facility] [address] [place] [address] Dr. Gasper Garber Urea nitrogen/Creatinine [Mass ratio] 15.8 mg/mg Normal [facility] Comment on above: Performed By: #### A CETON #### [facility] [address] [place] [address] Dr. Gasper Garber PROTIMEon 07-15-2021 INR Coag (PPP) [Relative time] 1.03 {INR} Normal [facility] Comment on above: Performed By: #### P T, PTT #### [facility] [address] [place] [address] Dr. Gasper Garber INR GUIDELINES SEE BELOW Normal [facility] Comment on above: Result Comment: JESUS RED INR: 2.0 - 3.0 CONDITIONS NOT LISTED BELOW 2.5 - 3.5 FOR PROSTHETIC HEART VALVE REPLACEMENT 2.5 - 3.5 RECURRENT THROMBOSIS Performed By: #### P T, PTT #### [facility] [address] [place] [address] Dr. Gasper Garber PT Coag (PPP) [Time] 11.1 s Normal 9.0-11.6 [facility] Comment on above: Performed By: #### P T, PTT #### [facility] [address] [place] [address] Dr. Gasper Garber PTTon 07-15-2021 aPTT Coag (Bld) [Time] 24.2 s Normal 22.3-36.2 [facility] Comment on above: Performed By: #### P T, PTT #### [facility] [address] [place] [address] Dr. Gasper Garber TROPONIN, HIGH SENSITIVITYon 07-15-2021 HSTROP 23.9 pg/mL Normal 4.0-51.3 [facility] Comment on above: Result Comment: CUT- OFF POINTS HAVE BEEN ESTABLISHED BASED ON THE FOURTH UNIVERSAL DEFINITIONS OF MYOCARDIAL INFARCTION. THE UPPER REFERENCE LIMIT (URL) OF TROPONIN, DEFINED THE 99TH PERCENTILE OF cTnI DISTRIBUTION IN A REFERENCE POPULATION, HAS BEEN CONFIRMED THE DECISION THRESHOLD FOR [place] DIAGNOSIS. Performed By: #### L ACT #### [facility] [address] [place] [address] Dr. Gasper Garber TSHon 07-15-2021 TSH 3.864 uIU/mL Critically high 0.358-3.740 [facility] Comment on above: Performed By: #### A CETON #### [facility] [address] [place] [address] Dr. Gasper Garber TSH RANGE SEE BELOW Normal [facility] Comment on above: Result Comment: <0.3 4 UIU/ml HYPERTHYROID 0.34-5.60 UIU/ml EUTHYROID >5.60 UIU/ml HYPOTHYROID Performed By: #### A CETON #### [facility] [address] [place] [address] Dr. Gasper Garber URINE MICROSCOPIC ONLYon BACTERIA MODERATE Abnormal NONE SEEN [facility] Comment on above: Performed By: #### E RUR, UMICRO #### [facility] [address] [place] [address] Dr. Gasper Garber Bacteria identified Cx Nom (U) INDICATED Normal [facility] Comment on above: Performed By: #### E YANICK UMICRO #### [facility] [address] [place] [address] Dr. Gasper Garber CAST SEEN Abnormal NONE SEEN [facility] Comment on above: Performed By: #### E YANICK UMICRO #### [facility] [address] [place] [address] Dr. Gasper Garber Crystals LM Nom (Urine sed) NONE SEEN Normal NONE SEEN [facility] Comment on above: Performed By: #### Bernice HERNDON UMICRO #### [facility] [address] [place] [address] Dr. Gasper Garber Epithelial cells LM Ql (Urine sed) RARE Normal NONE SEEN /RARE [facility] Comment on above: Performed By: #### Bernice HERNDON UMICRO #### [facility] [address] [place] [address] Dr. Gasper Garber MUCOUS NONE SEEN Normal NONE SEEN [facility] Comment on above: Performed By: #### Bernice HERNDON UMICRO #### [facility] [address] [place] [address] Dr. Gasper Garber RBC NONE SEEN Abnormal 0-2 [facility] Comment on above: Performed By: #### Bernice HERNDON UMICRO #### [facility] [address] [place] [address] Dr. Gasper Garber WBC 2-5 Abnormal NONE SEEN [facility] Comment on above: Performed By: #### Bernice HERNDON UMICRO #### [facility] [address] [place] [address] Dr. Gasper Garber XR chest 1V portableon 07-01 XR chest 1V portable [facility] [place] [address] XRay Report Signed Patient: Elif Turner MR#: [id number] : 1945 Acct:[id number] Age/Sex: 75 / F ADM Date: 06/24/21 Loc: Room: [address] [place] [address] Type: DIS IN Attending Dr: Rusty Amor MD Ordering Provider: Marlon Leon DO, RES Date of Service: 06/24/21 XR/XR chest 1V portable: NSTEMI Copies to: MD Marlon Winston DO, RES Chest 06/24/2021. CLINICAL DATA: Chest pain and shortness of breath. FINDINGS: A single portable frontal view of the chest was obtained and is compared with a previous study from the prior day. The cardiac silhouette is unchanged in size. The pulmonary vasculature is within normal limits. There are mild chronic findings in both lungs. No pulmonary consolidation or collapse is identified. No pneumothorax or pleural effusion is seen. The thoracic spine demonstrates degenerative changes. XR/XR chest 1V portable IMPRESSION: Mild chronic findings. No acute cardiopulmonary disease. Impression dictated by: Adarsh Valle Jr., M.D.07/01/2021 9:08 AM Dictation Location: [place] [address] Transcribed By: [facility] 07/01/21 0908 Dictated By: Adarsh Valle Jr, MD 07/01/21 0907 Signed By: 07/01/21 0908 Normal [facility] Activated partial thrombopla stin time (aPTT) in platelet poor plasma by coagulation aOrdered By: Marlon Leon on 06-25-2021 aPTT Coag (PPP) [Time] 24.8 s 25.1-36.5 [facility] Basophils Auto (Bld) [#/Vol] Ordered By: Marlon Leon on 06-25-2021 Basophils (Bld) [#/Vol] 0.0 10*3/uL 0.0-0.2 [facility] Basophils/100 WBC Auto (Bld) Ordered By: Marlon Leon on 06-25-2021 Basophils/100 WBC (Bld) 0.3 % [facility] Blood hemoglobin measurement (mass/volume)Ordered By: Marlon Leon on 06-25-2021 Hemoglobin (Bld) [Mass/Vol] 11.1 g/dL 11.8-15.4 [facility] Blood leukocytes automated c ount (number/volume)Ordered By: Marlon Leon on 06-25-2021 WBC (Bld) [#/Vol] 10.5 10*3/uL 4.5-11.0 [facility] Complete Blood Count Auto Di ffon 06-25-2021 Basophils (Bld) [#/Vol] 0.0 10*3/uL Normal 0.0-0.2 [facility] Comment on above: Result Comment: PERF ORMED BY: [facility] [place] [address] PATHOLOGIST [employer] NARGIS CLEMENS M.D. Performed By: #### G LULS #### Point of Care testing , Basophils/100 WBC (Bld) 0.3 % Normal . [facility] Comment on above: Performed By: #### G LULS #### Point of Care testing , Eosinophils (Bld) [#/Vol] 0.0 10*3/uL Normal 0.0-0.45 [facility] Comment on above: Performed By: #### G LULS #### Point of Care testing , Eosinophils/100 WBC (Bld) 0.0 % Normal . [facility] Comment on above: Performed By: #### G LULS #### Point of Care testing , Erythrocyte distribution width (RBC) [Ratio] 12.7 % Normal 11.9-15.3 [facility] Comment on above: Performed By: #### G LULS #### Point of Care testing , Hematocrit (Bld) [Volume fraction] 32.7 % Low 34.0-46.4 [facility] Comment on above: Performed By: #### G LULS #### Point of Care testing , Hemoglobin (Bld) [Mass/Vol] 11.1 g/dL Low 11.8-15.4 [facility] Comment on above: Performed By: #### G LULS #### Point of Care testing , Lymphocytes (Bld) [#/Vol] 0.4 10*3/uL Low 1.00-4.8 [facility] Comment on above: Performed By: #### Chitra CAMPBELL #### Point of Care testing , Lymphocytes/100 WBC (Bld) 4.3 % Normal . [facility] Comment on above: Performed By: #### Chitra MARSHALLLS #### Point of Care testing , MCH (RBC) [Entitic mass] 31.3 pg Normal 24.7-34.3 [facility] Comment on above: Performed By: #### Chitra MARSHALLLS #### Point of Care testing , MCV (RBC) [Entitic vol] 92.1 fL Normal 80-100 [facility] Comment on above: Performed By: #### Chitra MARSHALLLS #### Point of Care testing , Mean Corpuscular HGB Conc 34.0 g/dL Normal 32.0-35.0 [facility] Comment on above: Performed By: #### Chitra CAMPBELL #### Point of Care testing , Monocytes (Bld) [#/Vol] 0.5 10*3/uL Normal 0.0-0.8 [facility] Comment on above: Performed By: #### Chitra MARSHALLLS #### Point of Care testing , Monocytes/100 WBC (Bld) 4.5 % Normal . [facility] Comment on above: Performed By: #### Chitra CAMPBELL #### Point of Care testing , Neutrophils (Bld) [#/Vol] 9.6 10*3/uL High 1.8-7.7 [facility] Comment on above: Performed By: #### Chitra CAMPBELL #### Point of Care testing , Neutrophils/100 WBC (Bld) 90.9 % Normal . [facility] Comment on above: Performed By: #### Chitra CAMPBELL #### Point of Care testing , Nucleated RBC/100 WBC (Bld) [Ratio] 0.0 % Normal 0-0.5 [facility] Comment on above: Performed By: #### Chitra MARSHALLLS #### Point of Care testing , Platelet mean volume (Bld) [Entitic vol] 9.0 fL Normal 6.3-10.7 [facility] Comment on above: Performed By: #### Chitra CAMPBELL #### Point of Care testing , Platelets (Bld) [#/Vol] 205 10*3/uL Normal 150-450 [facility] Comment on above: Performed By: #### G LULS #### Point of Care testing , RBC (Bld) [#/Vol] 3.55 10*6/uL Low 3.60-5.00 [facility] Comment on above: Performed By: #### G LULS #### Point of Care testing , WBC (Bld) [#/Vol] 10.5 10*3/uL Normal 4.5-11.0 [facility] Comment on above: Performed By: #### G LULS #### Point of Care testing , ECG 12 lead ECGon 06-25-2021 ECG 12 lead ECG [facility] [address] Electrocardiograph Report Signed Patient: Elif Turner MR#: [id number] : 1945 Acct:[id number] Age/Sex: 75 / F ADM Date: 06/24/21 Loc: Room: [address] [place] [address] Type: DIS IN Attending Dr: Rusty Amor MD Ordering Provider: Gen Bolivar DO Date of Service: 06/25/2109/09/499 ECG/ECG 12 lead ECG: Post Angioplasty Procedure in AM Copies to: Test Reason : Blood Pressure : / mmHG Vent. Rate : 065 BPM Atrial Rate : 065 BPM P-R Int : 156 ms QRS Dur : 086 ms QT Int : 430 ms P-R-T Axes : 045 019 062 degrees QTc Int : 447 ms Sinus rhythm with premature atrial complexes Otherwise normal ECG When compared with ECG of 24-JUN-2021 14:43, (Unconfirmed) premature atrial complexes are now present Confirmed by [id number] on 06/25/2021 11:01:31 AM Referred By: Electronically Signed By:WIL DOMÍNGUEZ MD FACC Transcribed By: MUS Signed By Wil Domínguez MD, FACC 06/25/21 1101 Normal [facility] Eosinophils Auto (Bld) [#/Vo l]Ordered By: Marlon Leon on 06-25-2021 Eosinophils (Bld) [#/Vol] 0.0 10*3/uL 0.0-0.45 [facility] Eosinophils/100 WBC Auto (Bl d)Ordered By: Marlon Leon on 06-25-2021 Eosinophils/100 WBC (Bld) 0.0 % [facility] Erythrocyte distribution wid th Auto (RBC) [Ratio]Ordered By: Marlon Leon on 06-25-2021 Erythrocyte distribution width (RBC) [Ratio] 12.7 % 11.9-15.3 [facility] Glucose Glucometer (BldC) [M ass/Vol]Ordered By: Rusty Amor on 06-25-2021 Glucose [Mass/Vol] 227 mg/dL [facility] Comment on above: Random Glucose Refer ence Range is dependent on time and content of last meal. Glucose of more than 200 mg/dL in a nonstressed, ambulatory subject supports the diagnosis of Diabetes Mellitus. Glucose Poct Glucometerson 0 06-25-2021 Glucose [Mass/Vol] 227 mg/dL Normal [facility] Comment on above: Result Comment: [place] om Glucose Reference Range is dependent on time and content of last meal. Glucose of more than 200 mg/dL in a nonstressed, ambulatory subject supports the diagnosis of Diabetes Mellitus. PERFORMED BY: [place] [address] PATHOLOGIST [employer] HELPER NARGIS CLEMENS M.D. Performed By: #### P TT #### [facility] [address] [place] [address] Glucose [Mass/Vol] 184 mg/dL Normal [facility] Comment on above: Result Comment: [place] [facility] Glucose Reference Range is dependent on time and content of last meal. Glucose of more than 200 mg/dL in a nonstressed, ambulatory subject supports the diagnosis of Diabetes Mellitus. PERFORMED BY: [place] [address] PATHOLOGIST CAL[employer] HELPER NARGIS CLEMENS M.D. Performed By: #### P TT #### [facility] [address] [place] [address] Glucose [Mass/Vol] 294 mg/dL Normal [facility] Comment on above: Result Comment: [facility] Glucose Reference Range is dependent on time and content of last meal. Glucose of more than 200 mg/dL in a nonstressed, ambulatory subject supports the diagnosis of Diabetes Mellitus. PERFORMED BY: [facility] [place] [address] PATHOLOGIST CAL[employer] HELPER NARGIS CLEMENS M.D. Performed By: #### G SHANNAN #### Point of Care testing , Hematocrit Auto (Bld) [Volum e fraction]Ordered By: Marlon Leon on 06-25-2021 Hematocrit (Bld) [Volume fraction] 32.7 % 34.0-46.4 [facility] - CoagulationOrde red By: Marlon Leon on 06-25-2021 PT Coag (PPP) [Time] 11.5 s 9.0-12.9 [facility] - Hematology and Cell countsOrdered By: Marlon Leon on 06-25-2021 Nucleated RBC/100 WBC (Bld) [Ratio] 0.0 % 0-0.5 [facility] Lymphocytes Auto (Bld) [#/Vo l]Ordered By: Marlon Leon on 06-25-2021 Lymphocytes (Bld) [#/Vol] 0.4 10*3/uL 1.00-4.8 [facility] Lymphocytes/100 WBC Auto (Bl d)Ordered By: Marlon Leon on 06-25-2021 Lymphocytes/100 WBC (Bld) 4.3 % [facility] MCH Auto (RBC) [Entitic mass ]Ordered By: Marlon Leon on 06-25-2021 MCH (RBC) [Entitic mass] 31.3 pg 24.7-34.3 [facility] MCHC Auto (RBC) [Mass/Vol]Or dered By: Marlon Leon on 06-25-2021 MCHC (RBC) [Mass/Vol] 34.0 g/dL 32.0-35.0 [facility] MCV Auto (RBC) [Entitic vol] Ordered By: Marlon Leon on 06-25-2021 MCV (RBC) [Entitic vol] 92.1 fL 80-100 [facility] Monocytes Auto (Bld) [#/Vol] Ordered By: Marlon Leon on 06-25-2021 Monocytes (Bld) [#/Vol] 0.5 10*3/uL 0.0-0.8 [facility] Monocytes/100 WBC Auto (Bld) Ordered By: Marlon Leon on 06-25-2021 Monocytes/100 WBC (Bld) 4.5 % [facility] Neutrophils Auto (Bld) [#/Vo l]Ordered By: Marlon Leon on 06-25-2021 Neutrophils (Bld) [#/Vol] 9.6 10*3/uL 1.8-7.7 [facility] Neutrophils/100 WBC Auto (Bl d)Ordered By: Marlon Leon on 06-25-2021 Neutrophils/100 WBC (Bld) 90.9 % [facility] Partial Thromboplastin Timeo n 06-25-2021 aPTT Coag (Bld) [Time] 24.8 s Low 25.1-36.5 [facility] Comment on above: Result Comment: PERF ORMED BY: [facility] [address] [place] [address] PATHOLOGIST CAL[employer] HELPER NARGIS CLEMENS M.D. Performed By: #### G SHANNAN #### Point of Care testing , Platelet mean volume Auto (B ld) [Entitic vol]Ordered By: Marlon Leon on 06-25-2021 Platelet mean volume (Bld) [Entitic vol] 9.0 fL 6.3-10.7 [facility] Platelet poor plasma interna tional normalized ratio (INR) by coagulation assay (relatOrdered By: Marlon Leon on 06-25-2021 INR Coag (PPP) [Relative time] 1.0 {INR} [facility] Comment on above: INR Therapeutic Rang e A) Pre- and Peroperative OAT started two weeks before surgery. NOT HIP SURGERY: 1.5 - 2.5 HIP SURGERY: 2 - 3 B) Primary and secondary prevention of venous THROMBOSIS: 2 - 3 C) Active venous thrombosis, pulmonary embolism and prevention of recurrent venous thrombosis: 2 - 3 D) Prevention of arterial thromboembolism including patients with mechanical heart valves: 3 - 4.5 Platelets Auto (Bld) [#/Vol] Ordered By: Marlon Leon on 06-25-2021 Platelets (Bld) [#/Vol] 205 10*3/uL 150-450 [facility] Progress Noteson 06-25-2021 [employer] Authentication Interface Message Text EMERGENCY TRIAGE, TREAT AND TRANSPORT (ET3) DOCUMENTATION OF TELEHEALTH VISIT Date / Time: 06/23/20211929 Name: Elif Turner : 1945 SSN: (Not on file) EMS Agency: [facility] [x] Verbal consent obtained [] Implied consent - patient with potential emergency medical condition requiring assessment of capacity to refuse treatment and/or transport VITAL SIGNS: see flowsheet documentation Reason for Telehealth Visit: Chief Complaint Patient presents with * Chest symptoms/complaints History of Present Ilness: This is a very pleasant 75-year-old female with history of diabetes, coronary artery disease, stents x2-last was 5 years ago, fibromyalgia. Patient states that she has been having intermittent chest pain for the past 1-2 days. Patient states that she has also had increasing dyspnea with exertion, shortness of breath when lying flat, and a cough productive of white sputum. Patient also has noted increasing leg swelling. She denies diaphoresis, vomiting, fever. She does have nausea. She contacted 911 due to the chest pain, but the paramedics contacted ET 3 is the patient was refusing any further care or transport to the hospital. Additional pertinent PMHx, SocHx, FamHx: See above Review of Systems: Denies the following: see above Exam: General: Awake, no distress ENT: normocephalic, atraumatic Pulmonary: No respiratory distress, EMS reports clear lungs. Cardiovascular: Well perfused Neurologic: Oriented to person, place, time and events. Moving all extremities equally. Psychiatric: Appropriate. Good insight and judgement. Medical Decision Making: EMS 12 lead EKG was sent via picture and did not demonstrate any clear ST or T-wave changes. No STEMI. I spoke to the patient at length regarding my concern about potential cardiac dysfunction. Stress that her symptoms including the PND may demonstrate that she has has fluids in the lung or some type of cardiac myopathy. After this discussion the patient consented to go to the hospital. Disposition Supported by Telehealth Assessment: ET3 transport decisions: Transport to hospital EMS Disposition Reported: Same ET3 Encounter Completed by: Andreas Freitas MD Normal [facility] Prothrombin Time INRon 06-25 INR Coag (PPP) [Relative time] 1.0 {INR} Normal [facility] Comment on above: Result Comment: INR Therapeutic Range A) Pre- and Peroperative OAT started two weeks before surgery. NOT HIP SURGERY: 1.5 - 2.5 HIP SURGERY: 2 - 3 B) Primary and secondary prevention of venous THROMBOSIS: 2 - 3 C) Active venous thrombosis, pulmonary embolism and prevention of recurrent venous thrombosis: 2 - 3 D) Prevention of arterial thromboembolism including patients with mechanical heart valves: 3 - 4.5 Performed By: #### G LULS #### Point of Care testing , PT Coag (PPP) [Time] 11.5 s Normal 9.0-12.9 [facility] Comment on above: Performed By: #### G LULS #### Point of Care testing , RBC Auto (Bld) [#/Vol]Ordere d By: Marlon Leon on 06-25-2021 RBC (Bld) [#/Vol] 3.55 10*6/uL 3.60-5.00 [facility] Troponin I High Sensitivityo n 06-25-2021 Troponin I High Sensitivity 735 pg/mL Off scale high [address] Comment on above: Result Comment: Crit ical value result called at 0638 on 06/25/21 PERFORMED BY: [place] [address] PATHOLOGIST CAL[employer]ER [employer] UP HELPER NARGIS CLEMENS M.D. Performed By: #### P TT #### [address] Troponin I.cardiac [Mass/vol ume] in Serum or Plasma by High sensitivity methodOrdered By: Gen Bolivar on 06-25-2021 Troponin I.cardiac High sensitivity method [Mass/Vol] 735 pg/mL 15 [facility] Comment on above: Critical value result called at 0638 on 06/25/21 A1C with Estimated Average G nelsonn 06-24-2021 Glucose [Mass/Vol] 160 mg/dL Normal [facility] Comment on above: Result Comment: PERF ORMED BY: [facility] [address] [place] [address] PATHOLOGIST CAL[employer]ER [employer] UP HELPER NARGIS CLEMENS M.D. Performed By: #### G LULS #### Point of Care testing , HbA1c (Bld) [Mass fraction] 7.2 % High 4.3-5.6 [facility] Comment on above: Result Comment: Incr eased risk for diabetes: 5.7 - 6.4 diabetes: >6.4 glycemic control for adults with diabetes: <7.0 Performed By: #### G LULS #### Point of Care testing , Albumin [Mass/volume] in Ser um or PlasmaOrdered By: Marlon Leon on 06-24-2021 Albumin [Mass/Vol] 3.1 g/dL 3.2-5.5 [facility] Cholesterol [Mass/volume] in Serum or PlasmaOrdered By: Marlon Leon on 06-24-2021 Cholesterol [Mass/Vol] 128 mg/dL 140-200 [facility] Comment on above: Chol less than 200 m g/dl low risk Chol 201-239 mg/dl borderline risk Chol 240 mg/dl and greater high risk Cholesterol in LDL Calc [Mas s/Vol]Ordered By: Marlon Leon on 06-24-2021 Cholesterol in LDL [Mass/Vol] 56 mg/dL 0-100 [facility] Comment on above: LDL ATP III CLASSIFI CATION LDL less than 100 mg/dL Optimal LDL 100-129 mg/dL Near or above optimal LDL 130-159 mg/dL Borderline high LDL 160-189 mg/dL High LDL greater than 189 mg/dL Very high Cholesterol in VLDL Calc [Ma ss/Vol]Ordered By: Marlon Leon on 06-24-2021 Cholesterol in VLDL [Mass/Vol] 13 mg/dL [facility] Complete Blood Count Auto Di ffon 06-24-2021 Basophils (Bld) [#/Vol] 0.1 10*3/uL Normal 0.0-0.2 [facility] Comment on above: Result Comment: PERF ORMED BY: [facility] [address] [place] [address] PATHOLOGIST CAL[employer]ER [employer] UP HELPER NARGIS CLEMENS M.D. Performed By: #### P TT #### [facility] [address] [place] [address] [place] Basophils/100 WBC (Bld) 0.8 % Normal . [facility] Comment on above: Performed By: #### P TT #### [facility] [address] [place] [address] [place] Eosinophils (Bld) [#/Vol] 0.2 10*3/uL Normal 0.0-0.45 [facility] Comment on above: Performed By: #### P TT #### [facility] [address] [place] [address] [place] Eosinophils/100 WBC (Bld) 3.2 % Normal . [facility] Comment on above: Performed By: #### P TT #### [address] Erythrocyte distribution width (RBC) [Ratio] 12.7 % Normal 11.9-15.3 [facility] Comment on above: Performed By: #### P TT #### [address] Hematocrit (Bld) [Volume fraction] 30.5 % Low 34.0-46.4 [facility] Comment on above: Performed By: #### P TT #### [place] [address] [place] Hemoglobin (Bld) [Mass/Vol] 10.4 g/dL Low 11.8-15.4 [facility] Comment on above: Performed By: #### P TT #### [facility] [address] [place] [address] [place] Lymphocytes (Bld) [#/Vol] 1.8 10*3/uL Normal 1.00-4.8 [facility] Comment on above: Performed By: #### P TT #### [place] [address] [place] Lymphocytes/100 WBC (Bld) 27.4 % Normal . [facility] Comment on above: Performed By: #### P TT #### [address] [place] [address] [place] MCH (RBC) [Entitic mass] 31.3 pg Normal 24.7-34.3 [facility] Comment on above: Performed By: #### P TT #### [address] MCV (RBC) [Entitic vol] 92.0 fL Normal 80-100 [facility] Comment on above: Performed By: #### P TT #### [address] Mean Corpuscular HGB Conc 34.1 g/dL Normal 32.0-35.0 [facility] Comment on above: Performed By: #### P TT #### [address] Monocytes (Bld) [#/Vol] 0.6 10*3/uL Normal 0.0-0.8 [facility] Comment on above: Performed By: #### P TT #### [address] Monocytes/100 WBC (Bld) 8.9 % Normal . [facility] Comment on above: Performed By: #### P TT #### [address] Neutrophils (Bld) [#/Vol] 3.8 10*3/uL Normal 1.8-7.7 [facility] Comment on above: Performed By: #### P TT #### [address] Neutrophils/100 WBC (Bld) 59.7 % Normal . [facility] Comment on above: Performed By: #### P TT #### [address] Nucleated RBC/100 WBC (Bld) [Ratio] 0.0 % Normal 0-0.5 [facility] Comment on above: Performed By: #### P TT #### [address] Platelet mean volume (Bld) [Entitic vol] 8.4 fL Normal 6.3-10.7 [facility] Comment on above: Performed By: #### P TT #### [facility] [address] [place] [address] Platelets (Bld) [#/Vol] 191 10*3/uL Normal 150-450 [facility] Comment on above: Performed By: #### P TT #### [address] RBC (Bld) [#/Vol] 3.31 10*6/uL Low 3.60-5.00 [facility] Comment on above: Performed By: #### P TT #### [address] WBC (Bld) [#/Vol] 6.4 10*3/uL Normal 4.5-11.0 [facility] Comment on above: Performed By: #### P TT #### [address] Comprehensive Metabolic Pane hailey 06-24-2021 Albumin [Mass/Vol] 3.1 g/dL Low 3.2-5.5 [facility] Comment on above: Performed By: #### H S TROP, PT, PTT, CMP, PHOS, MG, LIPID #### [address] Albumin/Globulin [Mass ratio] 1.2 {ratio} Normal [facility] Comment on above: Performed By: #### H S TROP, PT, PTT, CMP, PHOS, MG, LIPID #### [address] ALP [Catalytic activity/Vol] 57 U/L Normal 32-92 [facility] Comment on above: Performed By: #### H S TROP, PT, PTT, CMP, PHOS, MG, LIPID #### [address] ALT [Catalytic activity/Vol] 25 U/L Normal 10-60 [facility] Comment on above: Performed By: #### H S TROP, PT, PTT, CMP, PHOS, MG, LIPID #### [facility] [address] [place] [address] AST [Catalytic activity/Vol] 20 U/L Normal 10-42 [facility] Comment on above: Performed By: #### H S TROP, PT, PTT, CMP, PHOS, MG, LIPID #### [facility] [address] [place] [address] Bilirubin [Mass/Vol] 0.5 mg/dL Normal 0.3-1.2 [facility] Comment on above: Performed By: #### H S TROP, PT, PTT, CMP, PHOS, MG, LIPID #### [address] Calcium [Mass/Vol] 9.1 mg/dL Normal 8.2-10.2 [facility] Comment on above: Performed By: #### H S TROP, PT, PTT, CMP, PHOS, MG, LIPID #### [address] Chloride [Moles/Vol] 108 mmol/L Normal 95-114 [facility] Comment on above: Performed By: #### H S TROP, PT, PTT, CMP, PHOS, MG, LIPID #### [address] CO2 [Moles/Vol] 25.1 mmol/L Normal 22.0-30.0 [facility] Comment on above: Performed By: #### H S TROP, PT, PTT, CMP, PHOS, MG, LIPID #### [address] Creatinine [Mass/Vol] 1.64 mg/dL High 0.44-1.03 [facility] Comment on above: Performed By: #### H S TROP, PT, PTT, CMP, PHOS, MG, LIPID #### [address] Creatinine Clr Calc Pharmacy 33.62 Normal [facility] Comment on above: Performed By: #### H S TROP, PT, PTT, CMP, PHOS, MG, LIPID #### [facility] [address] Estimated GFR ( Cathryn 37 [facility] Comment on above: Result Comment: GFR estimated reference range: According to KDOQI guidelines, <60 ml/min/1.73m2 is sufficient to diagnose a patient with chronic kidney disease. Performed By: #### H S TROP, PT, PTT, CMP, PHOS, MG, LIPID #### [facility] [address] Estimated GFR (Non- Am 31 [facility] Comment on above: Performed By: #### H S TROP, PT, PTT, CMP, PHOS, MG, LIPID #### [facility] [address] Globulin (S) [Mass/Vol] 2.6 g/dL [facility] Comment on above: Performed By: #### H S TROP, PT, PTT, CMP, PHOS, MG, LIPID #### [address] Glucose [Mass/Vol] 65 mg/dL Low 70-100 [facility] Comment on above: Result Comment: [facility] Glucose Reference Range is dependent on time and content of last meal. Glucose of more than 200 mg/dL in a nonstressed, ambulatory subject supports the diagnosis of Diabetes Mellitus. ADA recommended reference range Performed By: #### H S TROP, PT, PTT, CMP, PHOS, MG, LIPID #### [address] Potassium [Moles/Vol] 4.1 mmol/L Normal 3.5-5.1 [facility] Comment on above: Performed By: #### H S TROP, PT, PTT, CMP, PHOS, MG, LIPID #### [address] Protein [Mass/Vol] 5.7 g/dL Low 6.1-7.9 [facility] Comment on above: Performed By: #### H S TROP, PT, PTT, CMP, PHOS, MG, LIPID #### [facility] [address] [place] [id number] [facility] Sodium [Moles/Vol] 140 mmol/L Normal 136-146 [facility] Comment on above: Performed By: #### H S TROP, PT, PTT, CMP, PHOS, MG, LIPID #### [facility] [address] [place] [address] [place] Urea nitrogen [Mass/Vol] 27 mg/dL High 9- [facility] Comment on above: Performed By: #### H S TROP, PT, PTT, CMP, PHOS, MG, LIPID #### [facility] [address] Creatinine and Glomerular fi ltration rate.predicted panel (S/P/Bld)Ordered By: Marlon Leon on 06-24-2021 Creatinine [Mass/Vol] 1.64 mg/dL 0.44-1.03 [facility] ECG 12 lead ECGon 06-24-2021 ECG 12 lead ECG [facility] [place] [address] [place] [address] Electrocardiograph Report Signed Patient: Elif Turner MR#: [id number] : 1945 Acct:[id number] Age/Sex: 75 / F ADM Date: 06/24/21 Loc: Room: [address] [place] [address] Type: DIS IN Attending Dr: Rusty Amor MD Ordering Provider: Gen Bolivar DO Date of Service: 06/24/2108/11/1351 ECG/ECG 12 lead ECG: Post Angioplasty Procedure Copies to: Test Reason : Blood Pressure : / mmHG Vent. Rate : 072 BPM Atrial Rate : 072 BPM P-R Int : 148 ms QRS Dur : 086 ms QT Int : 432 ms P-R-T Axes : 038 052 026 degrees QTc Int : 473 ms Normal sinus rhythm with sinus arrhythmia Normal ECG When compared with ECG of 24-JUN-2021 05:24, No significant change was found Confirmed by WIL DOMÍNGUEZ MD, FACC ([id number]) on 06/25/2021 11:01:12 AM Referred By: Electronically Signed By:WIL DOMÍNGUEZ MD, FACC Transcribed By: MUS Signed By Wil Domínguez MD, FAC 06/25/21 1101 [facility] ECG 12 [place] [address] Electrocardiograph Report Signed Patient: Elif Turner MR#: [id number] : 1945 Acct:[id number] Age/Sex: 75 / F ADM Date: 06/24/21 Loc: 4P Room: [address] [place] [address] Type: DIS IN Attending Dr: Rusty Amor MD Ordering Provider: Marlon Leon DO, RES Date of Service: 06/24/2108/10/448 ECG/ECG 12 lead ECG: NSTEMI Copies to: Test Reason : Blood Pressure : / mmHG Vent. Rate : 057 BPM Atrial Rate : 057 BPM P-R Int : 148 ms QRS Dur : 082 ms QT Int : 464 ms P-R-T Axes : 072 016 066 degrees QTc Int : 451 ms Sinus bradycardia Otherwise normal ECG When compared with ECG of 24-JUN-2021 05:24, (Unconfirmed) No significant change was found Confirmed by [facility]OS [facility] ([id number][facility] on 06/24/2021 10:01:50 AM Referred By: Electronically Signed By:WIL DOMÍNGUEZ MD [facility] Transcribed By: MUS Signed By iWl Domínguez MD, FAC 06/24/21 1001 [facility] ECH echo transthoracicon ECH echo transthoracic [place] [id number] Echocardiogram Signed Patient: Elif Turner MR#: [id number] : 1945 Acct:[id number] Age/Sex: 75 / F ADM Date: 06/24/21 Loc: 4 Room: [address] [place] [address] Type: DIS IN Attending Dr: Rusty Amor MD Ordering Provider: Marlon Leon DO, RES Date of Service: 06/24/2108/10/602 ECH/ECH echo transthoracic: NSTEMI Copies to: Marlon Leon DO, RES Wil Domínguez MD, [facility] A : 1945 Gender: Female (MM/DD/YYYY) Age: 75 Years Ordering Physician: Marlon Leon Height: 64 in Weight: 203.266 lb Performed By: SAIGE Claire BSA: 1.97 m2 BP: 169 / 71 mmHg HR: 53 bpm Reason For Study: NSTEMI History: anxiety, CAD, PCI, HLD, HTN, DM, CKD + + Interpretation Summary The left ventricular size, thickness and function are normal Ejection Fraction = 60-65%. A variety of Doppler measurements indicate normal left ventricular diastolic function. The left ventricular wall motion is normal. The left atrium appears moderately dilated. Procedure/Quality: A two-dimensional transthoracic echocardiogram with color flow and Doppler was performed. The study was technically good in quality. Left Ventricle: The left ventricular size, thickness and function are normal. Ejection Fraction = 60-65%. A variety of Doppler measurements indicate normal left ventricular diastolic function. The left ventricular wall motion is normal. Left Atrium: The left atrium appears moderately dilated. The atrial septum appears normal. Right Atrium: The right atrium appears normal in size. Right Ventricle: The right ventricular size, thickness and function are normal. Aortic Valve: The aortic valve is trileaflet. Mitral Valve: There is mild to moderate mitral annular calcification. There is trace mitral regurgitation. Tricuspid Valve: The tricuspid valve is normal. Pulmonic Valve: The pulmonic valve is not well seen, but is grossly normal. Arteries: The aortic root is normal size. Pericardium/Pleura: No pericardial effusion seen. There is no pleural effusion. IVC/Hepatic Veins: The IVC is normal in size with an inspiratory collapse of greater then 50%, suggesting normal right atrial pressure. Miscellaneous: No thrombus, vegetation or mass is seen. MMode/2D Measurements Calculations IVSd (0.7-1.1 cm): 1.12 cm LVIDd (3.7-5.4 cm): 4.7 cm LVPWd (0.7-1.1 cm): 1.15 cm LVIDs (2.3-3.6 cm): 2.9 cm LA dimension (2.3-4.0 cm): 5.0 cm Ao root diam (2.0-3.2 cm): 3.1 cm FS: 39.2 % Ao root area: 7.4 cm2 EDV(Teich): 103.4 ml LAV(MOD-sp4): 76.7 ml ESV(Teich): 31.4 ml EF(Teich): 69.6 % LA A4 area: 24.7 cm2 LA length (vol): 6.3 cm Doppler Measurements Calculations MV E max polly: 125.0 cm/sec MV A max polly: 105.3 cm/sec MV dec time: 0.42 sec MV dec slope: 300.5 cm/sec?? E/E' lat: 12.4 E/E' med: 18.8 TV max P.0 mmHg TR max polly: 251.1 cm/sec TR max P.2 mmHg RAP systole: 5.0 mmHg + + + + + : Electronically signed : : : : by: WIL Frazier. : : MD SANG, : : FAC : : : : on: 06/24/2021, 11:11 : : AM : : : Transcribed By: SCV Performed At: 06/24/21 0944 Signed By: Wil Domínguez MD, FACC 06/24/[address] [place] [address] Estimated glomerular filtrat ion rate (GFR) non- AmericanOrdered By: Marlon Leon on 06-24-2021 GFR/1.73 sq M.predicted among non-blacks MDRD (S/P/Bld) [Vol rate/Area] 31 mL/Min [facility] Globulin Calc (S) [Mass/Vol] Ordered By: Malron Leon on 06-24-2021 Globulin (S) [Mass/Vol] 2.6 g/dL [facility] Glucose Poct Glucometerson 0 06-24-2021 Glucose [Mass/Vol] 322 mg/dL Normal [facility] Comment on above: Result Comment: [facility] Glucose Reference Range is dependent on time and content of last meal. Glucose of more than 200 mg/dL in a nonstressed, ambulatory subject supports the diagnosis of Diabetes Mellitus. PERFORMED BY: [address] [place] [id number] PATHOLOGIST [employer] NARGIS CLEMENS M.D. Performed By: #### G LULS #### Point of Care testing , Commemt1 Glu2: Cleaned Meter Normal [facility] Comment on above: Result Comment: PERF ORMED BY: [facility] [address] [place] [address] PATHOLOGIST [employer] NARGIS CLEMENS M.D. Performed By: #### G LULS #### Point of Care testing , Glucose [Mass/Vol] 87 mg/dL Normal [facility] Comment on above: Result Comment: [facility] Glucose Reference Range is dependent on time and content of last meal. Glucose of more than 200 mg/dL in a nonstressed, ambulatory subject supports the diagnosis of Diabetes Mellitus. Performed By: #### G LULS #### Point of Care testing , Glucose [Mass/Vol] 139 mg/dL Normal [facility] Comment on above: Result Comment: [facility] Glucose Reference Range is dependent on time and content of last meal. Glucose of more than 200 mg/dL in a nonstressed, ambulatory subject supports the diagnosis of Diabetes Mellitus. PERFORMED BY: [address] [place] [id number] PATHOLOGIST [employer] NARGIS CLEMENS M.D. Performed By: #### P TT #### [facility] [address] Glucose mean value [Mass/vol ume] in Blood Estimated from glycated hemoglobinOrdered By: Marlon Leon on 06-24-2021 Average glucose Estimated from glycated hemoglobin (Bld) [Mass/Vol] 160 mg/dL [facility] Hemoglobin A1c percentageOrd ered By: Marlon Leon on 06-24-2021 HbA1c (Bld) [Mass fraction] 7.2 % 4.3-5.6 [facility] Comment on above: Increased risk for d iabetes: 5.7 - 6.4 diabetes: >6.4 glycemic control for adults with diabetes: <7.0 Laboratory - Chemistry and C hemistry - challengeOrdered By: Marlon Leon on 06-24-2021 Magnesium [Mass/Vol] 2.4 mg/dL 1.6-2.6 [facility] Lipid Panelon 06-24-2021 Cholesterol [Mass/Vol] 128 mg/dL Low 140-200 [facility] Comment on above: Result Comment: Chol less than 200 mg/dl low risk Chol 201-239 mg/dl borderline risk Chol 240 mg/dl and greater high risk Performed By: #### H S TROP, PT, PTT, CMP, PHOS, MG, LIPID #### [facility] [address] [place] [address] [place] Cholesterol in HDL [Mass/Vol] 58 mg/dL Normal 35-85 [facility] Comment on above: Result Comment: HDL CHOL ATP-III CLASSIFICATION Cardiovascular Risk HDL > or equal to 60 mg/dL LOW HDL < 40 mg/dL HIGH Performed By: #### H S TROP, PT, PTT, CMP, PHOS, MG, LIPID #### [facility] [address] Cholesterol.total/Ch olesterol in HDL [Mass ratio] 2.2 {ratio} Normal <5.0 [facility] Comment on above: Result Comment: PERF ORMED BY: [place] [address] PATHOLOGIST [employer] NARGIS CLEMENS M.D. Performed By: #### H S TROP, PT, PTT, CMP, PHOS, MG, LIPID #### [facility] [address] LDL Cholesterol,Calculat ed 56 mg/dL Normal 0-100 [facility] Comment on above: Result Comment: LDL ATP III CLASSIFICATION LDL less than 100 mg/dL Optimal LDL 100-129 mg/dL Near or above optimal LDL 130-159 mg/dL Borderline high LDL 160-189 mg/dL High LDL greater than 189 mg/dL Very high Performed By: #### H S TROP, PT, PTT, CMP, PHOS, MG, LIPID #### [facility] [address] Triglyceride w/Reflex 69 mg/dL Normal 35-149 [facility] Comment on above: Result Comment: TRIG ATP III CLASSIFICATION TRIG less than 150 mg/dL Normal TRIG 150-199 mg/dL Borderline high TRIG 200-500 mg/dL High TRIG greater than 500 mg/dL Very high Standard traceable to the Center for Disease Conrtrol and Prevention (CDC) test method. Performed By: #### H S TROP, PT, PTT, CMP, PHOS, MG, LIPID #### [facility] [address] VLDL CHOLESTEROL 13 mg/dL Normal [facility] Comment on above: Performed By: #### H S TROP, PT, PTT, CMP, PHOS, MG, LIPID #### [facility] [address] Magnesiumon 06-24-2021 Magnesium [Mass/Vol] 2.4 mg/dL Normal 1.6-2.6 [facility] Comment on above: Performed By: #### H S TROP, PT, PTT, CMP, PHOS, MG, LIPID #### [facility] [address] No Panel InformationOrdered By: Rusty Amor on 06-24-2021 Bedside Glucose Comment Glu2: cleaned meter [facility] No Panel InformationOrdered By: Marlon Leon on 06-24-2021 Estimated GFR () 37 mL/Min [facility] Comment on above: GFR estimated refere nce range: According to KDOQI guidelines, <60 ml/min/1.73m2 is sufficient to diagnose a patient with chronic kidney disease. Pharmacy Creatinine Clearance (Chem 33.62 [facility] Partial Thromboplastin Timeo n 06-24-2021 aPTT Coag (Bld) [Time] 43.4 s High 25.1-36.5 [facility] Comment on above: Order Comment: draw both at 11:35 with per Shahnaz martin Result Comment: PERF ORMED BY: [place] [address] PATHOLOGIST [employer] NARGIS CLEMENS M.D. Performed By: #### P TT #### [facility] [address] [place] [address] aPTT Coag (Bld) [Time] 35.4 s Normal 25.1-36.5 [facility] Comment on above: Result Comment: PERF ORMED BY: [place] [address] PATHOLOGIST [employer] NARGIS CLEMENS M.D. Performed By: #### H S TROP, PT, PTT, CMP, PHOS, MG, LIPID #### [facility] [address] [place], [place] [id number] [facility] Phosphate [Mass/volume] in S sybil or PlasmaOrdered By: Marlon Leon on 06-24-2021 Phosphate [Mass/Vol] 3.5 mg/dL 2.5-4.6 [facility] Phosphoruson 06-24-2021 Phosphate [Mass/Vol] 3.5 mg/dL Normal 2.5-4.6 [facility] Comment on above: Performed By: #### H S TROP, PT, PTT, CMP, PHOS, MG, LIPID #### [facility] [address] [place], [place] [address] [place] Protein [Mass/volume] in Ser um or PlasmaOrdered By: Marlon Leon on 06-24-2021 Protein [Mass/Vol] 5.7 g/dL 6.1-7.9 [facility] Prothrombin Time INRon 06-24 INR Coag (PPP) [Relative time] 1.0 {INR} Normal [facility] Comment on above: Result Comment: INR Therapeutic Range A) Pre- and Peroperative OAT started two weeks before surgery. NOT HIP SURGERY: 1.5 - 2.5 HIP SURGERY: 2 - 3 B) Primary and secondary prevention of venous THROMBOSIS: 2 - 3 C) Active venous thrombosis, pulmonary embolism and prevention of recurrent venous thrombosis: 2 - 3 D) Prevention of arterial thromboembolism including patients with mechanical heart valves: 3 - 4.5 Performed By: #### H S TROP, PT, PTT, CMP, PHOS, MG, LIPID #### [facility] [address] PT Coag (PPP) [Time] 11.7 s Normal 9.0-12.9 [facility] Comment on above: Performed By: #### H S TROP, PT, PTT, CMP, PHOS, MG, LIPID #### [facility] [address] Serum or plasma alanine liu otransferase measurement without P-5'-P (enzymatic activiOrdered By: Marlon Leon on 06-24-2021 ALT No additional P-5'-P [Catalytic activity/Vol] 25 U/L 10-60 [facility] Serum or plasma albumin/glob ulin mass ratioOrdered By: Marlon Leon on 06-24-2021 Albumin/Globulin [Mass ratio] 1.2 {ratio} [facility] Serum or plasma alkaline carrie sphatase measurement (enzymatic activity/volume)Ordered By: Marlon Leon on 06-24-2021 ALP [Catalytic activity/Vol] 57 U/L 32-92 [facility] Serum or plasma aspartate am inotransferase measurement (enzymatic activity/volume)Ordered By: Marlon Leon on 06-24-2021 AST [Catalytic activity/Vol] 20 U/L 10-42 [facility] Serum or plasma calcium varsha urement (mass/volume)Ordered By: Marlon Leon on 06-24-2021 Calcium [Mass/Vol] 9.1 mg/dL 8.2-10.2 [facility] Serum or plasma chloride viktoriya surement (moles/volume)Ordered By: Marlon Leon on 06-24-2021 Chloride [Moles/Vol] 108 mmol/L 95-114 [facility] Serum or plasma glucose varsha urement (mass/volume)Ordered By: Marlon Leon on 06-24-2021 Glucose [Mass/Vol] 65 mg/dL 70-100 [facility] Comment on above: ADA recommended refe rence range Random Glucose Reference Range is dependent on time and content of last meal. Glucose of more than 200 mg/dL in a nonstressed, ambulatory subject supports the diagnosis of Diabetes Mellitus. Serum or plasma high density lipoprotein (HDL) cholesterol measurementOrdered By: Marlon Leon on 06-24-2021 Cholesterol in HDL [Mass/Vol] 58 mg/dL 35-85 [facility] Comment on above: HDL CHOL ATP-III CLA SSIFICATION Cardiovascular Risk HDL > or equal to 60 mg/dL LOW HDL < 40 mg/dL HIGH Serum or plasma potassium me asurement (moles/volume)Ordered By: Marlon Leon on 06-24-2021 Potassium [Moles/Vol] 4.1 mmol/L 3.5-5.1 [facility] Serum or plasma sodium measu rement (moles/volume)Ordered By: Marlon Leon on 06-24-2021 Sodium [Moles/Vol] 140 mmol/L 136-146 [facility] Serum or plasma total biliru bin measurement (mass/volume)Ordered By: Marlon Leon on 06-24-2021 Bilirubin [Mass/Vol] 0.5 mg/dL 0.3-1.2 [facility] Serum or plasma total carbon dioxide measurement (moles/volume)Ordered By: Marlon Leon on 06-24-2021 CO2 [Moles/Vol] 25.1 mmol/L 22.0-30.0 [facility] Serum or plasma total choles terol/high density lipoprotein (HDL) cholesterol mass ratOrdered By: Marlon Leon on 06-24-2021 Cholesterol.total/Ch olesterol in HDL [Mass ratio] 2.2 {ratio} [facility] Serum or plasma urea nitroge n measurement (mass/volume)Ordered By: Marlon Leon on 06-24-2021 Urea nitrogen [Mass/Vol] 27 mg/dL 9-23 [facility] Triglyceride [Mass/volume] i n Serum or PlasmaOrdered By: Marlon Leon on 06-24-2021 Triglyceride [Mass/Vol] 69 mg/dL 35-149 [facility] Comment on above: TRIG ATP III CLASSIF ICATION TRIG less than 150 mg/dL Normal TRIG 150-199 mg/dL Borderline high TRIG 200-500 mg/dL High TRIG greater than 500 mg/dL Very high Standard traceable to the Center for Disease Conrtrol and Prevention (CDC) test method. Troponin I High Sensitivityo n 06-24-2021 Troponin I High Sensitivity 879 pg/mL Off scale high 0-15 [facility] Comment on above: Order Comment: draw both at 11:35 with per Shahnaz martin Result Comment: Crit ical value result called at 1246 on 06/24/21 PERFORMED BY: [place] [address] PATHOLOGIST [employer] NARGIS CLEMENS M.D. Performed By: #### G LULS #### Point of Care testing , Troponin I High Sensitivity 1098 pg/mL Off scale high 0-15 [facility] Comment on above: Result Comment: Resu lts called at 0635 on 06/24/21 PERFORMED BY: [place] [address] PATHOLOGIST [employer] NARGIS CLEMENS M.D. Performed By: #### H S TROP, PT, PTT, CMP, PHOS, MG, LIPID #### [facility] [address] [place] [address] Auth for Release of Medical Recordson 03-01-2021 Auth for Release of Medical Records [id number]:[id number] Normal [facility] Reminderson 02-16-2021 Reminders - From: Elsa Erickson LPN To: GSN - Clinical; Sent: 02/16/2021 08:31:52 EST Show up: 01/10/2026 08:00:00 EST Subject: colonoscopy recall Due Date/Time: 02/09/2026 08:00:00 EST Reminder/Recall Patient is due for colonoscopy 02/09/2026 due to history of tubular adenoma. Normal [facility] Ambulatory Clinical Summaryo n 02-15-2021 Ambulatory Clinical Summary {[id number]}CD:[id number] Normal [facility] General Surgery Office/Clini c Noteon 02-15-2021 General Surgery Office/Clinic Note CD:[id number] JkbvhKxz7cmjw6sKB3nHpCqgkYc JRwzVk2tr4vvCW76wc5oKbKiGm5 +WhysRL2HCDtDQERq lU7eEAADLkdLEvDaPV4vDiQVTb7 UALKgREoLNAofCM3eZPK1ujvfaW 1gVE8oDWAxfILtWr0cv6g7 TwpuCo1gQg0RNx44dYGmhIDeDPE RL3lehC1zVK9ltQIzE1BdITYpNc 3DYZz5aTytnV5fyqE6Bmp2 rED7Qd59p4zlwcDad6GmXyM8SRl rvZt4oMpmSPpmxO3sVbVdDDBWjP 2biFdbQE4dmR6xacYyjTrp biI+MwnmNWRuLka1aVJgML82K2V fyPlqFvs9xTO0YJUbuTOtHEHebR c6BOLVQSMBJRLubARaeVuu jYUeAXBjolScxjE7ToxSPAOxJaF gZru4U4jdAJQ+Nuxzw8W0Siq1MA b8INF0jFbvSJJfk722CYHx zZwepQtpvQDzl53oUGKojUMqLtB oq644NPCycrI7SOdfpMkjLsx5oF SmkXLpz7wtcGv6LsTfKPNk OzyVWHBnyLfqf2UcCqeCAPish5j aahFllWpzGUP3a7WyEJeeKCPsRS U0HqEyUC0+CgkJPGNvbCB2 NFhvH052KpSwnYOuy9tafBo5JnW 6QTNkLk4IMWllX16nG3EltJE+Cg j6oGHuRQa+CgkJPHRyPgoJ GLw3aDXza3S4kPF1KcQoprMtr2i 1KWkkFZP8PtW8OWX0sSWsxP5ccO xfnwaorW7oErR+CgkJCTxk fEQzL2lly8C2XhAhg9QvuStepgH fIGGjHiNlr6vhAhvrAXCqmS1kRL Q6JaRxMWAwmTRzCZFuKX4z fkLsmUOsDWIzRjZqR4Qwv80gj5P kIFKRI1kKEgIyJQQ5OC8eCqNmJT 0iXzljNGYzNmVlLWFlZGYt YZYxPG58CVi9YBGdAPDdPXIoHjB 2AaGmt4F4yRD2HpWfQNIajay8HK RweDsiPjxzcGFuIGNsYXNz GOTgRTRzD1Wlu92llDAgzXV8Mh4 2l1JubySzxMcwAF7jZe6evT95HI ppcHQ9ZILfxLJ7CNMfzFBd FXVwz6AlkIfegolnpS6oRMIoyY9 lOyI+K6jaJYNsS93bzYgxjK38YP 5ggRQeYbaji1Vjaz3UJChJ NFDtzdXxlPKysv3iJCEsdAZwe88 4KD84PgAlQYgti209YL50rGdnIP 0kIEUKQ2ZNMI2FFPIGBvCg DYtcYUUuvpWvK3N5eXmkQEVYC1S 6SxA7GW1TWxNvYSJTU1McUlLpBp 6ER0JBWPlHHsO7ReWiGMqc LNYoUKwjBSL2GeobUKP6DI36V5R nQPP7PVNqAPIeHiGjXVt5NjyaWl 2OQMpRDBPywsBtvABoib0h OFCyaJGqm934CV67kAZhkOBtHER mzL17FLXiQFOlwFA3Bh28EfX0UF P4MC9eGUBhISRrMGBqHgM6 Qq06KvJfRVSkSZMvALDhLjTyr2M qc5KhnbG0kWVkKYHvrJupwqZ2rF qgOSb4DctSTSo7F8Abaf0N VPqQEP3dpWN+ClgPOWe3FFg4KPR gAAZySQNpKHKnY6Vup99yIXZdAA OsQWMeBEEnRJAmAFcpd8Xg sSBqOIX6DDt5RZPetwIvi2JiAen pLpSnGJtoFML6qN8sI30oHB0gGG 7NWaUfYGXpNyVlLwIotEB0 Qp7hDZLnAwrbCs8sTOrvLXF0YeH oOMFvSr65NSwaPYWjWSs5XfIxPB R3zHdoJHOsYEOilP2mDrX0 tKl9Fv36v7BgtcLihQBcqg4pLWC vXEV0aM1nONvfnFiunNF+PHNwYW 1gf1V5iAP7OoEvrmUsg2Ct K1i3DfFav0mbSqU1YWd1NAYiB42 iTFTjc053KQEfDSDtsNrkHJraKi iZXPQXsABmTvmaw9Byeq90 X0OjTV7+AzyZWLc5HDm3HFDlRYW zPSJkZGVtcmNvbnRlbnQiIGRkOm QimwLwgiM8qEWmZWZYLDDR FUEOG90WQBZePUGjQnZfIqCiRY9 cOQU3xKV9BhQ3RCWWRLDeNYl8HO PfZZL4Mw1JMlXcUXPQGWGA BzauQXV5ZbHfjKB8Nj25EdMwUfT sTx7pSFX7SSOuEKEpJPPzMR77Q5 D7Rpi9XXGjAZQrClsJAXs4 CQm9PSJuHMOhRDVcZJVbumIgzqV fkjPiuMHdPDCnyeFre2EbYpsrDt LqUYpruR9tqG1fqImdC9L0 gOmlIUG5k5EkuizjeQQlIBMqPzY qywZlquQ1iXDxJBOHMVHYQRQGI5 5XUNApFSNiHqBasXt9kEeg SDWaZKbrLPFqSZD9KOUsZfatZrN 7UN22MVD0WWSkMmIiYRCtOGIrP9 MxOcDgVtZ1eDksaquoUH5t KWtaXH6mK8InW0WeSQ57UFVnb60 oTsyUEOa8QWv9TLV1qOwoPIKgMK RdfT61IJAntOKyhF08GMGe HEJgloc2RGFokJywLg0vHFWvLwC xmIBhsvtpXPDyFVUjKNSkEyM8DE x9ICPvpYgtLjQvAPW3XnVo j7kgaogryhqfHBNtGHLoFYXlEaQ 0PXa9BGkiLMNmsEdqKCknJsDtg2 90IQF8sEzzFeJkw2RtPOh3 ETRaziQhu1ZhM0k2IsOxj3MaOTl 7VZFsnZFuDCVxq6ZnuXyyecoqlg 7zUKjeOboDPSu6EZz6Hzcj BJ2unSS4Sv49MHFqCVxaMP71WAX uESIdCvPwSVDiGk5iLZn9URnvC8 IcWEMwDltjTH6EXhkXHLgr aXY+LpFiOJmytN9mnRTquHJhRJF uasXjJj4jrD71MIHnAGPpw0BbVK hVCCfcuWxyNO44pkKbZVQt CFPbCRE4gptlIDPjz4QkdTGcIBE oOOAdd2dufd6hH39aaZM0jAHnGC IcB7OwAZnnNwDtp2zmyjAx afAsuuQkfPHlFSKmvMcqPLH0r31 qMUNpLTZfsnWbosBojvC2rGIwLK JnHL9dkC8tbZGgBQgkHitf JPw5WsoEHMm4Q1Xbxc4DOGsQDM8 kaXY+IxcRRAldRBp0ZxnIDMd5G6 Rmfw9GITeQOU3iqYN+CgoJ ULg8FTc8SMCiULCtLZInAZNoP0O rg43jSUCwLLXfVXMjPSRiYKKoTB djl0NedJXyTMZ5KTo6HSBv qvCaq6NrYdaxEkZnPSuyCVB8hD8 iW84vQB0jXF7RHnSlFYSvZaXzPh CdjCX5Yi2sCKDbKbOuHW95 WKhrCAG9XBWwUXVcJh8dIqEjLLX kPoX5BtGgSOC0nMppIAPgZZZgcQ 8pLbH7vYe6Go87s7PcetSi sVFeiy0qACHtWYS5nZ5jOZgzrXb heSI+VZLqPB3lp6I1fLF3XlVcpy Obi4BpT1f6FqKtx3uzPpP3 UUs9JQPpZ48zOLXms141IOQaKOS gyRufMZozPbpkd4Wzsuuju7LqGO Wez5FajUYHcTwiQYNmGM9d tNChCpwog5Zfsp0AUxsDCDthbED lN4ehp7X6XiEuOD5fB76eaIMxvV NiJWZ0I39uQ3BlnB3aFGTT ZiGqQGwyi367FC15uPtoBQ5gJU1 NW6DDRGTtDAAhPzFxTgEiIM5eVJ A5xKD4BkTwOoDqJdH4ZDO0 RWBmXUSRMn87MggAYCPOFbW7Q7B 4W6Y8VVNryUF9Sd4dKRryTOJvOQ 6nCjfsIDBaFIYlFGI2Xe7o BfYbQBT0DOnrOIUmJuuJFVl1XUl 2IGNsYXNzPSJkZGVtcmNvbnRlbn JkaXZnQvGzCUqaj556XZ55 hFbaEQ4aICUHH2PXRP7RVOWCSfZ oJSzrbrFbtSyaSZ9dNLn7ZbL1SI L9ZpUgXVQ6VJ39mRX4ixIi e4msnk0tAsSgpJN1Jf03PmNxPWY 8JG5vSsGwXWM1TKGoTWRnDW20PO F2VjQgJWC0RMQoJahYGUl6 UEj8JRNfGHByDQLiBJPgoGIkskI ynCXkMIQ7GH64bXE5jZK8sUK7bR Q0OjTdi7PxnPTycNCgjFK5 Uj06OMm8XTLmDI0bNFWaHERkXVV lHsudCN1rRDK9HpEvHvFfLPDfVa hQKHt5UNy7EJAhIXOwLPTd IPDxEEF0FRr4UVUziwCag4NpOmu vIlZaXQamxP7gvU4zfHsaN2I0hU dvVLY1m2NuxbwklAZdYUss SNHgMcXlZkHsEeRrFVIsXt79SVF xOJIwQ1DiABbkEIKiTJGmOLH5Yy 7qJYuvHTeuxv3lATPVTR4i f5xhhy8cQ70yrME0lDTzWEkus8L vsIWfMbzblGMbYSHnLY9mYYOcnD 9zYNBgsNbgACS5r477RQwz VwouwL7nQ8WqvvOmX0FnhPTyhRz zLCBsaWtlbHkgZnJvbSBiaWxlIH FsCsx4hWmuhaTsLGEfkiIb Ug7cOGxyeMqko9LfWbImiFNncIU 5gAH1cRWsLVXnNB4yoWWhcP6cCR BrKGDafW0oZRGqXTO6LRhd yI7bbJCznFkfSTQlwUQywIwsGeM mAVW9wmOgiwOzP19lo85od9n8tA SvhPEfkR9dN3eyNYadoLR3 bPPgnGRpa4IthINscM3wSKZyimD vXJUvZNRyNGyrOXHsjbR0fSB9PQ o4FO1qa9IxWC1faOSuENM1 x3RxJO25W6Qjqd6SBNrNQM2grBS +RnkBPGpjKGx8RudDFZr5I3Hwyh 2JMSxNMX8pzSB+CgoJCQk8 MDw1XAAeRASxPPYvSDPkJ1Gbx79 gZGRyZWZyZXNoYWJsZSBkZGluc2 FcsTTyHQC3KFc5MMDvtlZx w1IbRhorKmRqFVpuHGZ2zA2uG41 xNW7dEB2JKoWlXSCqFFcmBdZgzX S8Dl65SwVaSHZ7PY6iX8D4 L (more content not included)... [facility] Comment on above: Result Comment: Elec tronically Signed By: ANGEL BARRIOS, Neel Gamboa\Date and Time Signed: 02/15/21 15:08 EST Pathology Noteon 02-14-2021 Pathology Note [id number] [facility] Outside Colonoscopyon 2020 Outside Colonoscopy [id number]:127 [facility] Lab Reportson 02-07-2021 Lab Reports [id number]#[id number]:127 [facility] Pre-Certification Formon Pre-Certification Form [id number]#[id number]:127 [facility] Consent for Procedure/Surger yon 01-19-2021 Consent for Procedure/Surgery [id number]#1.00CD:127 [facility] January 19, 2021 AMADOR HSIEHADORE, [address] [place] [address] Re: ELIF TURNER Date of : 1945 Thank you for your referral of Elif Turner who was seen on consultation on 01/18/2021 for epigastric pain with nausea. An EGD and colonoscopy are planned for further evaluation. I have enclosed my consultation note for your review. I will be happy to follow Elif. Sincerely, eNel Razo MD General Surgery [facility] Ambulatory Clinical Summaryo n 01-18-2021 Ambulatory Clinical Summary {[id number]}CD:61 [id number] [facility] Physician Referralon 021 Physician Referral [id number]#1.00CD:127 [facility] Consultation Noteon 12-07-19 21 Consultation Note [id number]#[id number]:127 [facility] CNOVon 09-19-2017 CNOV Office Visit (JAVISJASEN) -------[facility]UR[facility] ([id number]) 1945 [facility]/19/17 11:30 AM CHIDI MELLO During your visit today, we recorded the following information about you: Pulse Respiration Blood pressure Weight 52/minute 16/minute 115/46 93.4 kg Height 1.626 mDaniel Kassavin, MD 09/19/2017 11:59 AM [facility] Department of Cardiovascular MedicineOUTPATIENT VISIT DATE September 19, 2017OUTPATIENT VISIT TYPENEWPRIMARY CARE PHYSICIAN:Amador Abdalla MD ([facility])[address] [place] [address]Eilvi: [phone]: [phone] PHYSICIANChkiah Wilkins MD[address] [place] [id number] COMPLAINT:No chief complaint on file.HISTORY OF PRESENT ILLNESS:Elif Turner was referred for consultation by Dr. Zach Wilkins. Opinionsand recommendations in this consultation will be transmitted back to thereferring physician by Epic notes or via mail.Ms. Turner is a 72 year old female who is seen today for evaluation fordiscomfort in the arch of her feet and mild discomfort in the legs when walking.Her walking is limited by osteoarthritis of the knees, hips and lower back. Sheuses a walker.She has difficulty in maintaining her glucose levels.Hx of CAD s/p PCI. On ASA, statin.HUMBERTO/PVR performed at [facility], right 0.94, left 1.14.PAST MEDICAL HISTORYDiagnosis Date- DM (diabetes mellitus) (HCC)- Fibromyalgia- HTN (hypertension)- Intermittent claudication (HCC)- OsteoarthritisPAST SURGICAL HISTORYProcedure Laterality Date- ASPIRATION BREAST CYST- CHOLECYSTECTOMY- PAST SURGICAL HISTORY OF Cardiac Stents- PAST SURGICAL HISTORY OF Removal of ovary tumorSOCIAL HISTORYSocial HistorySubstance Use Topics- Smoking status: Never Smoker- Smokeless tobacco: Never Used- Alcohol use NoNo family history on file.ALLERGIES:ALLERGIESAll ergen Reactions- Clindamycin Hcl Anaphylaxis- Cyclobenzaprine Hcl Rash- Exenatide Rash- Iodine And Iodide C* Rash- Penicillins Rash- Prochlorperazine UnknownMEDICATIONS:medical supply, miscellaneous (COMMODE PAIL MISC) USE DIRECTEDVENTOLIN HFA 90 mcg/actuation inhaleramLODIPine (NORVASC) 10 mg tablet Take 1 tablet by mouth once daily.atorvastatin (LIPITOR) 40 mg tablet Take 1 tablet by mouth daily at bedtime.ONETOUCH ULTRA BLUE TEST STRIP test strip twice daily. TEST TWICE DAILYONETOUCH ULTRA2 monitoring kit twice daily. TEST TWICE DAILYSTOOL SOFTENER 100 mg capsule Take 100 mg by mouth once daily.fluticasone (FLONASE) 50 mcg/actuation nasal sprayfurosemide (LASIX) 40 mg tablet Take 1 tablet by mouth once daily.glipiZIDE (GLUCOTROL) 10 mg tablet Take 2 tablets by mouth once daily.hydrALAZINE (APRESOLINE) 50 mg tablet Take 1 tablet by mouth twice daily.ONETOUCH DELICA LANCETS 30 gauge misc twice daily. TEST TWICE DAILYlosartan-hydrochloroth iazide (HYZAAR) 100-25 mg per tablet Take 1 tablet bymouth once daily.metFORMIN ER (GLUCOPHAGE XR) 500 mg 24 hr tablet Take 1 tablet by mouth twicedaily.metoprolol tartrate, short acting, (LOPRESSOR) 50 mg tablet Take 1 tablet bymouth once daily.sucralfate (CARAFATE) 1 gram tablet Take 1 tablet by mouth four times daily.PARoxetine (PAXIL) 40 mg tablet Take 1 tablet by mouth once daily.temazepam (RESTORIL) 15 mg cap Take 1 capsule by mouth daily at bedtime.pioglitazone (ACTOS) 30 mg tablet Take 30 mg by mouth once daily.REVIEW OF SYSTEMS:GENERAL: no acute distressAll other ROS: negativeI personally interviewed, confirmed and edited the above information asobtained by others.PHYSICAL EXAMINATION:BP (!) 115/46 (BP Site: Right Arm, BP Position: Sitting, BP Cuff Size: LargeAdult) Pulse (!) 52 Resp 16 Ht 162.6 cm (5' 4 ) Wt 93.4 kg (206 lb) SpO2 95% BMI 35.36 kg/m?General appearance: well nourished, alert and cooperative individual, in noacute distress.Neck: no bruitsPulmonary: Lungs clear to auscultation bilaterally.Coronary: regular rate and regular rhythmLower Extremities: Feet and toes warmToes pink < 2 sec cap refillPalp DP pulses bilaterallyNo wounds, ulcersMotor and sensory grossly intact in bilateral feet and toesCARDIOVASCULAR MEDICINE TESTING:I have personally reviewed the HUMBERTO/PVR.IMPRESSION/PLAN:Ms. Turner is a 72 year old female presenting with lower extremity complaints.These are primarily due to osteoarthritis and peripheral neuropathy.Encouraged to develop regular walking regimen, at least 3 times per week for 30minutes durations, rest when calf discomfort prevents her from walking furtherand then restart. I suspect her osteoarthritis will be her limiting factor andthus recommend initial evaluation with orthopedics.Continue optimal medical control of comorbidities, in particular control ofhyperglycemia.Continue follow up with Dr Wilkins of podiatry.Chidi Mello, MERCEDeferring Provider: AMAYA WILKINS [[id number]]Allergies As of Date: 09/19/2017 Noted Allergy ReactionCLINDAMYCIN HCL 05/26/2016 10 - AnaphylaxisCYCLOBENZAPRINE HCL 12/11/2012 2 - RashEXENATIDE 12/27/2012 2 - RashIODINE AND IODIDE CONTAINING PROD*12/11/2012 2 - RashPENICILLINS 12/11/2012 2 - RashPROCHLORPERAZINE 12/11/2012 16 - UnknownDate Reviewed: 09/19/2017Reviewed by: Chidi Mello - Fully AssessedPrimary Visit Diagnosis:Primary osteoarthritis involving multiple joints [M15.0] Other Visit Diagnoses:Diabetic peripheral neuropathy associated with type 2 diabetes mellitus ([facility]) [E11.42] PAD (peripheral artery disease) ([facility]) [I73.9]Prescriptions as of 09/19/2017 Sig: [facility] USE DIRECTED VENTOLIN HFA 90 MCG/ACTUATION* AMLODIPINE 10 MG TABLET Take 1 tablet by mouth once d* ATORVASTATIN 40 MG TABLET Take 1 tablet by mouth daily * ONETOUCH ULTRA BLUE TEST STRIP twice daily. TEST TWICE DAILY ONETOUCH ULTRA2 KIT twice daily. TEST TWICE DAILY STOOL SOFTENER 100 MG CAPSULE Take 100 mg by mouth once silvano* FLUTICASONE 50 MCG/ACTUATION * FUROSEMIDE 40 MG TABLET Take 1 tablet by mouth once d* GLIPIZIDE 10 MG TABLET Take 2 tablets by mouth once * HYDRALAZINE 50 MG TABLET Take 1 tablet by mouth twice * ONETOUCH DELICA LANCETS 30 GA* twice daily. TEST TWICE DAILY LOSARTAN 100 MG-HYDROCHLOROTH* Take 1 tablet by mouth once d* METFORMIN ER 500 MG TABLET,EX* Take 1 tablet by mouth twice * METOPROLOL TARTRATE 50 MG TAB* Take 1 tablet by mouth once d* SUCRALFATE 1 GRAM TABLET Take 1 tablet by mouth four t* PAROXETINE 40 MG TABLET Take 1 tablet by mouth once d* TEMAZEPAM 15 MG CAPSULE Take 1 capsule by mouth daily* PIOGLITAZONE 30 MG TABLET Take 30 mg by mouth once lynn*Problem List As Of Date: 09/19/2017(None)Medications Discontinued During This Encounter pantoprazole DR (PROTONIX) 40 mg tab* 09/10/2017 09/19/2017 Class: Historical Med Route: ORAL Sig: Take 1 tablet by mouth twice daily. Disc: Erroneous entryDisposition: Return if symptoms worsen or fail to improve.Follow-up and Disposition History RecordedEncounter Number: [id number] Status:Closed by CHIDI MELLO MD on 09/19/17 Normal [facility] PROGRESSon 09-19-2017 Protein mass conc HNO ID: [id number] thor: Chidi Feldman: (none)Author Type: PhysicianType: Progress NotesFiled: 09/19/2017 11:59 AMNote Text:Heart and Vascular InstituteRobert and Alexia Donaldson Department of Cardiovascular MedicineOUTPATIENT VISIT DATE September 19, 2017OUTPATIENT VISIT TYPENEWPRIMARY CARE PHYSICIAN:Amador Abdalla MD ([facility])[address], [place] [address]Frieg: [phone]: [phone] PHYSICIANChelijahtopher Crystal Wilkins MD[address] [place] [address]WLTLZ COMPLAINT:No chief complaint on file.HISTORY OF PRESENT ILLNESS:Elif Turner was referred for consultation by Dr. Zach Wilkins.Opinions and recommendations in this consultation will be transmitted backto the referring physician by [facility] notes or via mail.Ms. Turner is a 72 year old female who is seen today for evaluation fordiscomfort in the arch of her feet and mild discomfort in the legs whenwalking.Her walking is limited by osteoarthritis of the knees, hips and lowerback. She uses a walker.She has difficulty in maintaining her glucose levels.Hx of CAD s/p PCI. On ASA, statin.HUMBERTO/PVR performed at [facility], right 0.94, left 1.14.PAST MEDICAL HISTORYDiagnosis Date- DM (diabetes mellitus) (HCC)- Fibromyalgia- HTN (hypertension)- Intermittent claudication (HCC)- OsteoarthritisPAST SURGICAL HISTORYProcedure Laterality Date- ASPIRATION BREAST CYST- CHOLECYSTECTOMY- PAST SURGICAL HISTORY OF Cardiac Stents- PAST SURGICAL HISTORY OF Removal of ovary tumorSOCIAL HISTORYSocial HistorySubstance Use Topics- Smoking status: Never Smoker- Smokeless tobacco: Never Used- Alcohol use NoNo family history on file.ALLERGIES:ALLERGIESAll ergen Reactions- Clindamycin Hcl Anaphylaxis- Cyclobenzaprine Hcl Rash- Exenatide Rash- Iodine And Iodide C* Rash- Penicillins Rash- Prochlorperazine UnknownMEDICATIONS:medical supply, miscellaneous (COMMODE PAIL MISC) USE DIRECTEDVENTOLIN HFA 90 mcg/actuation inhaleramLODIPine (NORVASC) 10 mg tablet Take 1 tablet by mouth once daily.atorvastatin (LIPITOR) 40 mg tablet Take 1 tablet by mouth daily atbedtime.ONETOUCH ULTRA BLUE TEST STRIP test strip twice daily. TEST TWICE DAILYONETOUCH ULTRA2 monitoring kit twice daily. TEST TWICE DAILYSTOOL SOFTENER 100 mg capsule Take 100 mg by mouth once daily.fluticasone (FLONASE) 50 mcg/actuation nasal sprayfurosemide (LASIX) 40 mg tablet Take 1 tablet by mouth once daily.glipiZIDE (GLUCOTROL) 10 mg tablet Take 2 tablets by mouth once daily.hydrALAZINE (APRESOLINE) 50 mg tablet Take 1 tablet by mouth twice daily.ONETOUCH DELICA LANCETS 30 gauge misc twice daily. TEST TWICE DAILYlosartan-hydrochloroth iazide (HYZAAR) 100-25 mg per tablet Take 1 tabletby mouth once daily.metFORMIN ER (GLUCOPHAGE XR) 500 mg 24 hr tablet Take 1 tablet by mouthtwice daily.metoprolol tartrate, short acting, (LOPRESSOR) 50 mg tablet Take 1 tabletby mouth once daily.sucralfate (CARAFATE) 1 gram tablet Take 1 tablet by mouth four timesdaily.PARoxetine (PAXIL) 40 mg tablet Take 1 tablet by mouth once daily.temazepam (RESTORIL) 15 mg cap Take 1 capsule by mouth daily at bedtime.pioglitazone (ACTOS) 30 mg tablet Take 30 mg by mouth once daily.REVIEW OF SYSTEMS:GENERAL: no acute distressAll other ROS: negativeI personally interviewed, confirmed and edited the above information asobtained by others.PHYSICAL EXAMINATION:BP (!) 115/46 (BP Site: Right Arm, BP Position: Sitting, BP Cuff Size:Large Adult) Pulse (!) 52 Resp 16 Ht 162.6 cm (5' 4 ) Wt 93.4kg (206 lb) SpO2 95% BMI 35.36 kg/m?General appearance: well nourished, alert and cooperative individual, inno acute distress.Neck: no bruitsPulmonary: Lungs clear to auscultation bilaterally.Coronary: regular rate and regular rhythmLower Extremities: Feet and toes warmToes pink < 2 sec cap refillPalp DP pulses bilaterallyNo wounds, ulcersMotor and sensory grossly intact in bilateral feet and toesCARDIOVASCULAR MEDICINE TESTING:I have personally reviewed the HUMBERTO/PVR.IMPRESSION/PLAN:Ms. Turner is a 72 year old female presenting with lower extremitycomplaints.These are primarily due to osteoarthritis and peripheral neuropathy.Encouraged to develop regular walking regimen, at least 3 times per weekfor 30 minutes durations, rest when calf discomfort prevents her fromwalking further and then restart. I suspect her osteoarthritis will be herlimiting factor and thus recommend initial evaluation with orthopedics.Continue optimal medical control of comorbidities, in particular controlof hyperglycemia.Continue follow up with Dr Wilkins of podiatry.Chidi Mello MD Normal [facility] Vital Signs Date Time Vital Sign Value Performing Clinician Facility 06-25-2021 12:15-0400 Body temperature 98.1 [degF] MD Amador Abdalla Work Phone: [facility] 06-25-2021 12:15-0400 Diastolic blood pressure 72 mm[Hg] MD Amador Abdalla Work Phone: [facility] 06-25-2021 12:15-0400 Heart rate 64 /min MD Amador Abdalla Work Phone: [facility] 06-25-2021 12:15-0400 Respiratory rate 18 /min MD Amador Abdalla Work Phone: [facility] 06-25-2021 12:15-0400 SaO2% (BldA) [Mass fraction] 96 % MD Amador Abdalla Work Phone: [facility] 06-25-2021 12:15-0400 Systolic blood pressure 127 mm[Hg] MD Amador Abdalla Work Phone: [facility] 06-25-2021 08:00-0400 Inhaled oxygen flow rate 3 L/min MD Amador Abdalla Work Phone: [facility] 06-25-2021 06:00-0400 Body weight 93.5 kg MD Amador Abdalla Work Phone: [facility] 06-24-2021 04:05-0400 Body height 162.56 cm MD Amador Abdalla Work Phone: [facility] 06-24-2021 04:05-0400 Body mass index (BMI) [Ratio] 34.9 kg/m2 MD Amador Abdalla Work Phone: [facility] 06-23-2021 19:30-0400 Diastolic blood pressure 61 mm[Hg] [facility] 06-23-2021 19:30-0400 Heart rate 80 /min [facility] 06-23-2021 19:30-0400 Respiratory rate 16 /min [facility] 06-23-2021 19:30-0400 SaO2% (BldA) [Mass fraction] 98 % [facility] 06-23-2021 19:30-0400 Systolic blood pressure 132 mm[Hg] [facility] Encounters Encounter Date Encounter Type Care Provider Facility Start: 04-26-2023 End: 04-26-2023 ambulatory AMAYA WILKINS Not Available Start: 03-13-2023 End: 03-13-2023 ambulatory AMADOR ABDALLA Not Available Start: 01-31-2023 End: 01-31-2023 ambulatory [facility] Start: 10-12-2022 Rx Renewal Zafar Chavira n DO Work Phone: [facility] [address] DO Work Phone: Start: 08-29-2022 End: [facility] Start: 08-02-2022 End: 08-02-2022 ambulatory [facility] Start: 07-21-2022 End: 07-22-2022 ambulatory [facility] Start: 07-03-2022 End: 07-04-[address] AMADOR ABDALLA Facility:[facility] Start: 05-26-2022 End: 05-26-[address] AMADOR ABDALLA Facility:[facility] Start: 05-14-2022 End: 05-16-[address] AMADOR ABDALLA Facility:[facility] Start: 05-04-2022 End: 05-05-[address] AMADOR ABDALLA Facility:[facility] Start: 12-01-2021 End: 12-02-[address] AMADOR ABDALLA Facility:[facility] Start: 10-20-2021 Rx Renewal Zafar Chavira n DO Work Phone: -[facility] [address] DO Work Phone: Start: 09-09-2021 End: 09-10-[address] AMADOR ABDALLA Facility:[facility] Start: 08-31-2021 End: 08-31-[address] AMADOR ABDALLA Facility:[facility] Start: 08-27-2021 End: 08-27-2021 ambulatory TRENTON COLLINS Facility:[facility] Start: 08-23-[address] CAROLINA goldenty:[facility] Start: 08-16-2021 End: 08-16-[address] BERNADETTE ANGELES . Facility:[facility] Start: 08-01-2021 End: 08-02-2021 ambulatory ELY MENG Facility:[facility] Start: 07-27-2021 End: 07-28-2021 ambulatory ELY MENG Facility:[facility] Start: 07-15-2021 End: 07-17-[address] AMADOR ABDALLA Facility:[facility] Start: 06-25-2021 End: 07-29-2021 ambulatory UNKNOWN PROVIDER Facility:[facility] Start: 06-24-2021 End: 06-25-2021 Evaluation and management of inpatient Amador Abdalla Facility:[facility] Start: 06-24-2021 End: 06-25-2021 Evaluation and management of inpatient MD Amador Abdalla Work Phone: [facility] [place] [facility] Start: 06-23-2021 End: 06-23-2021 ambulatory [facility] Emergenc y Triage, Treat and Transport Start: 06-23-2021 End: 06-23-2021 Emergency department patient visit [facility] Emergency Triage, Treat and Transport Comment on above: Arrived Start: 11-21-2018 End: 11-24-2018 Patient encounter procedure KELLI HANKINS Facility:[facility] Start: 09-19-2017 End: 09-19-2017 Patient encounter CHIDI MELLO [facility] Procedures Date Procedure Procedure Detail Performing Clinician Start: 06-24-2021 CL Iliac/Fem w/LHC MD Karin Abdalla Work Phone: Start: 06-24-2021 CL PCI 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 1st Vesse l RCA BAMBI MD Amador Abdalla Work Phone: Start: 06-24-2021 Insertion of cathete r into urinary bladder MD Amador Abdalla Work Phone: Start: 06-24-2021 Therapeutic injectio n iv push each new drug MD Amador Abdalla Work Phone: Start: 06-24-2021 MD Amador snowden Work Phone: Plan of Treatment Date Care Activity Detail Author Start: 06-24-2021 Plain chest X-ray XR chest 1V [facility] Start: 07-10-2012 Pneumococcal vaccination Pneumococcal Vaccine(s) (65+ yrs) (1 - PCV) [facility] Start: 07-10-2012 Screening for osteoporosis Bone Densitometry [facility] Start: 07-10-1997 Measurement of occult blood in single stool specimen FIT [facility] Start: 07-10-1997 Screening for malignant neoplasm of breast Mammography [facility] Start: 07-10-1997 Screening for malignant neoplasm of colon CRC Screening [facility] Start: 07-10-1997 Shingles (RZV) Vaccine (1 of 2) Shingles (RZV) Vaccine (1 of 2) [facility] Start: 07-10-1992 Cholesterol [Mass/volume] in Serum or Plasma Cholesterol [facility] Start: 07-10-1965 Hepatitis C screening Hepatitis C Antibody [facility] Start: 05-22-1966 Tetanus + diphtheria + acellular pertussis vaccine (product) [facility] Start: 07-10-1952 COVID-19 Vaccine (1) COVID-19 Vaccine (1) [facility] Start: 1945 Screening for malignant neoplasm of colon Colonoscopy [facility] Patient Education Coronary Angio plasty (DC) Liraglutide Angina (DC) Drug Eluting Stents [facility] Work Phone: Patient referral [facility] Work Phone: Payers Date Payer Category Payer Medicare [id number] 2021 Self-pay [id number] 1957 Medicaid [id number] 1957 Medicare [id number] 1959 Unknown [id number] 1945 Unknown [id number] 2.16.8 40.1.464656.3.579.2.647 1945 Unknown [id number] 2.16. 840.1.141882.3.579.2.732 1945 Unknown [id number] 2.16.84 0.1.270636.3.579.2.593 1945 Unknown [id number] 2.16.84 0.1.465073.3.579.2.593 1945 Unknown [id number] 2.16.84 0.1.908295.3.579.2.593 1945 Unknown [id number] 2.16.84 0.1.389240.3.579.2.593 1945 Unknown [id number] 2.16.84 0.1.402301.3.579.2.593 1945 Unknown [id number] 2.16.84 0.1.330436.3.579.2.593 1945 Unknown [id number] 2.16.84 0.1.547505.3.579.2.593 1945 Unknown [id number] 2.16.84 0.1.232779.3.579.2.593 1945 Unknown [id number] 2.16.84 0.1.692716.3.579.2.593 1945 Unknown [id number] 2.16.84 0.1.194310.3.579.2.593 1945 Unknown [id number] 2.16.84 0.1.419230.3.579.2.593 1945 Unknown [id number] 2.16.84 0.1.419724.3.579.2.593 1945 Unknown [id number] 2.16.84 0.1.697918.3.579.2.593 1945 Unknown [id number] 2.16.84 0.1.617402.3.579.2.1259 1945 Unknown [id number] 2.16.84 0.1.871185.3.579.2.1259 Medicare [id number] Unknown Unknown [id number] 2.16.8 40.1.855913.3.579.2.531 Social History Date Type Detail Facility Tobacco smoking status WYIS Tobacco smoking consumption unknown [facility] Work Phone: Start: 1945 Sex Assigned At Not on file [facility] Start: 06-24-2021 Tobacco smoking status NHIS Never smoked tobacco (finding) [facility] Start: 1945 Sex Assigned At Female F [facility] Goals Date Patient Goal Desired Activity /State Functional Status Date Assessment Result Facility 06-25-2021 Functional status Patient at Baseline [facility] Work Phone: Mental Status Date Assessment Result Facility 06-25-2021 Cognitive function Cognitive Sta tus Patient is Progressing Toward Baseline [facility] Work Phone: Clinical Notes 01-18-2021 to 01-31-2023 Note Date & Type Note Facility 01-31-2023 Note Cardiovascular Medic [facility] SUBJECTIVE Chief Complaint Patient presents with Congestive Heart Failure Hypertension Carotid Artery Disease Elif Turner is a 77 y.o. female here for follow-up. HPI Patient here for 6 mo follow up CAD, chronic [diastolic] heart failure, hypertension, and carotid artery stenosis. Has not had carotid US since last visit in July [address] Lucio. Denies chest pain, SOB, palpitations, and lightheadedness. Has intermittent LE edema, which is no more than usual for her. She hasn't been taken extra lasix she says. Last labs were done in July 2022. She has been feeling well since last seen. No significant changes. Denies issues with bleeding, syncope, orthopnea, PND, weight gain. Last HPI per Dr. Lucio: Ms. Turner is seen in follow up on coronary artery disease s/p stenting of the RCA on 12/19/2012, and Circumflex/Obtuse marginal branch on 01/12/2015. She has hypertension on medical therapy, she has chronic diastolic heart failure. Cardiac cath findings on 01/12/2015: 1. Coronary artery disease with severe stenosis in the first obtuse marginal branch at the ostium. 2. A 90% stenosis in the first diagonal branch, which is a very small vessel. 3. Moderate 50% stenosis in the ostium of the right coronary artery with patent proximal right coronary artery stent. 4. Successful balloon dilatation and bare-metal stenting of 90% ostial circumflex stenosis using a Vision 3.0 x 23 mm stent with reduction of the stenosis to 0%. cardiac catheterization on 08/25/2016, because of symptoms of unstable angina.: 1. Coronary artery disease. 2. Patent previously placed proximal right coronary artery and mid circumflex stents. 3. 90% stenosis in a small first diagonal branch. 4. Moderate disease in the mid left anterior descending and the mid right coronary artery. 5. Elevated filling pressures. 6. Moderate pulmonary hypertension. 7. Preserved cardiac output and cardiac index. Given that the above angiographic appearance is almost identical to the prior angiogram in 2014, the coronary artery disease will be managed medically. The first diagonal branch is of small caliber and is not suitable for coronary intervention. Her diuretic therapy was increased maintenance of 60 mg daily. 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 Visit of 07/18/2017: At last visit of 06/20/2017 I had increased lasix from 60 to 80 mg daily. After that she was not eating or drinking after she was started on trazodone. She developed dehydration and JAKI, treated by hydration at [facility] and did well. Since then she has been feeling well and has been eating and drinking well and no longer takes trazodone and lasix is 40 mg daily. No chest pain and no dyspnea. Her Cr on 07/09/2017 was 1.96 and down to 1.7 on 07/10/2017. Update 11/16/2017: She is seen in follow up. Most recently she was admitted to [facility] with decompensated diastolic heart failure. She was diuresed, went into JAKI with Cr 2.0 but her renal function is improving. She was changed from lasix to bumex. She is very nervous. She reports that she was getting chest discomfort during the admission but is ok now. Echocardiogram 11/02/2017: Normal ventricular systolic function. Moderate diastolic dysfunction. Severely elevated right sided pressures. BMP 11/05/2017: Cr 1.55; BUN 55. NT-proBNP 4184 [facility] 11/12/2017: BUN 42, Cr 1.47, K 4.5. Update 01/04/2018: She is seen in follow up. Last visit I saw her after her admission to [facility] with heart failure and she developed JAKI. Her renal function was improving. She had musculoskeletal chest discomfort but no angina. She says she gets them once in a while. Her main issue is related to arthritis. Her breathing is ok. Carotid duplex 12/27/2017: Thre is less than 50% stenosis of the RIGHT internal carotid artery. There is 50-69% stenosis of the LEFT internal carotid artery. Doppler flows of the RIGHT and LEFT external carotid arteries are suggestive of greater than 50% stenosis. Antegrade vertebral artery Doppler flows. BMP 01/01/2018: Cr 1.65, BUN 40. K 3.9. Update 12/09/2018: She is seen in follow-up. Most recently she was admitted to the [facility] and transferred to [facility] due to decompensated diastolic heart failure in the setting of UTI. She underwent right heart catheterization that showed significantly elevated filling pressures and pulmonary hypertension. She underwent diuresis. Her renal function at discharge was improved with a creatinine of 1.57. She has been slowly recovering from the admission. She did have a fall this morning while trying to get out of bed. She has dizziness on standing. No chest pain. She feels tired. Wants to sleep all the time. Blood testing 11/24/2018: Hemoglobin 9.4. Potassium 4.6. Creatinine 1.57. BUN 56. (more content not included)... [facility] 01-31-2023 Note Patient here for 6 m o follow up CAD, chronic systolic heart failure, hypertension, and carotid artery stenosis. Has not had carotid US since last visit in July [address] Lucio. Denies chest pain, SOB, palpitations, and lightheadedness. Has intermittent LE edema, which is no more than usual for her. She hasn't been taken extra lasix she says. Last labs were done in July 2022. Review of Systems Cardiovascular: Positive for leg swelling. Musculoskeletal: Positive for arthritis, back pain, joint pain, myalgias and neck pain. Neurological: Positive for headaches. All other systems reviewed and are negative. [facility] 08-29-2022 Note SUBJECTIVE: Chief complaint: Consultation for arachnoid cyst. History of present illness: Consultation referred by primary care provider Dr. Abdalla for intracranial arachnoid cyst. Reports had recent brain imaging due to headaches all the time. Headaches are no particular location. Nothing in particular seems to make them better or worse. Not associated with photophobia, phonophobia, or vision, diplopia, nausea, vomiting. Denies seizures. Does report intermittent dizziness and vertigo that seems to be worse with seasonal allergies and quick movements. Does use rolling walker due to her history of unsteady gait. Has fallen. Daughter notes that she stumbles frequently. Also reports some chronic difficulty with word finding, though notes that this is worse since recent fall. Denies neck or back pain. Does report chronic weakness of her right great toe and inability to extend the toe for many years since she was with her child. Also have numbness of the right second and third toes since then. Review of systems: Constitutional: Denies fever, chills. Head: Reports headaches. Reports chronic sinus infections. Eyes: Denies blurred vision, diplopia. Ears: Denies change in hearing. Nose/throat: Denies dysphagia. Cardiovascular: Denies chest pain. Respiratory: Denies cough, shortness of breath. Extremities: Denies edema. Genitourinary: Denies incontinence or retention. Reports frequent urinary tract infections. Gastrointestinal: Reports constipation, denies diarrhea, incontinence, nausea, vomiting. Neurologic: Denies weakness. Reports numbness, tingling. Reports vertigo, dizziness, unsteady gait, falls. Reports word finding difficulty. Musculoskeletal: Denies neck pain, back pain. Past Medical History: Diagnosis Date CHF (congestive heart failure) ([facility]) Chronic kidney disease Coronary artery disease Diabetes mellitus ([facility]) H/O total hysterectomy Heart attack ([facility]) Hyperlipidemia Hypertension Past Surgical History: Procedure Laterality Date BREAST SURGERY CARDIAC CATHETERIZATION Right 11/22/2018 CARDIAC CATHETERIZATION 08/25/2016 CARDIAC CATHETERIZATION 01/11/2015 CARDIAC CATHETERIZATION 12/03/2014 CARDIAC CATHETERIZATION 06/24/2021 CHOLECYSTECTOMY HYSTERECTOMY Social History Tobacco Use Smoking status: Never Smokeless tobacco: Never Substance Use Topics Alcohol use: Not Currently Drug use: Never Family History Problem Relation Name Age of Onset Stroke Father OBJECTIVE: Medications: ALPRAZolam amLODIPine aspirin atorvastatin buPROPion SR carvedilol cholecalciferol clopidogrel diazePAM famotidine fluticasone furosemide hydrALAZINE HYDROcodone-acetaminophen methocarbamol metoclopramide montelukast ondansetron ODT pantoprazole PARoxetine SITagliptin phosphate sucralfate temazepam Current Outpatient Medications: ALPRAZolam (Xanax) 0.5 mg tablet, Take 0.5 mg by mouth if needed at bedtime for anxiety., Disp: , Rfl: amLODIPine (Norvasc) 10 mg tablet, Take by mouth in the morning., Disp: , Rfl: aspirin 81 mg EC tablet, Take by mouth in the morning., Disp: , Rfl: atorvastatin (Lipitor) 80 mg tablet, Take 80 mg by mouth at bedtime., Disp: , Rfl: buPROPion SR (Wellbutrin SR) 150 mg 12 hr tablet, Take by mouth in the morning and at bedtime. Do not crush, chew, or split., Disp: , Rfl: carvedilol (Coreg) 6.25 mg tablet, Take 1 tablet (6.25 mg) by mouth with breakfast and with evening meal., Disp: 180 tablet, Rfl: 3 cholecalciferol (Vitamin D-3) 25 MCG (1000 units) tablet, Take 1 tablet by mouth in the morning., Disp: , Rfl: clopidogrel (Plavix) 75 mg tablet, TAKE 1 TABLET BY MOUTH EVERY DAY, Disp: 90 tablet, Rfl: 3 famotidine (Pepcid) 40 mg tablet, Take by mouth., Disp: , Rfl: fluticasone (Flonase) 50 mcg/actuation nasal spray, SPRAY 1 SPRAY INTO EACH NOSTRIL DAILY, Disp: , Rfl: furosemide (Lasix) 20 mg tablet, Take by mouth., Disp: , Rfl: hydrALAZINE (Apresoline) 100 mg tablet, Take 100 mg by mouth in the morning, at noon, and at bedtime., Disp: , Rfl: HYDROcodone-acetaminophen ([place]) 5-325 mg tablet, Take 1 tablet by mouth if needed in the morning, at noon, and at bedtime., Disp: , Rfl: methocarbamol (Robaxin) 750 mg tablet, 750 mg if needed in the morning, at noon, in the evening, and at bedtime., Disp: , Rfl: metoclopramide (Reglan) 5 mg tablet, Take 5 mg by mouth at bedtime., Disp: , Rfl: montelukast (Singulair) 10 mg tablet, Take 10 mg by mouth at bedtime., Disp: , Rfl: ondansetron ODT (Zofran-ODT) 4 mg disintegrating tablet, Take 4 mg by mouth every 6 (six) hours if needed., Disp: , Rfl: pantoprazole (ProtoNix) 40 mg EC tablet, Take 40 mg by mouth in the morning and at bedtime. Do not crush, chew, or split., Disp: , Rfl: PARoxetine (Paxil) 40 mg tablet, Take 40 mg by mouth in the morning., Disp: , Rfl: SITagliptin phosphate (Januvia) 100 mg tablet, Take 100 mg (more content not included)... [facility] 08-02-2022 Note [facility] Subjective Elif Turner is a 77 y.o. year old female patient being seen for 6 month Follow-up, Coronary Artery Disease, Hypertension, and Congestive Heart Failure Patient Active Problem List Diagnosis Coronary artery disease involving [place] coronary artery of [place] heart without angina pectoris CKD stage 4 due to type 2 diabetes mellitus (CMS/HCC) Essential hypertension Mixed hyperlipidemia Chronic diastolic heart failure (CMS/HCC) Carotid artery stenosis Family History Problem Relation Name Age of Onset Stroke Father Social History Tobacco Use Smoking status: Never Smokeless tobacco: Never Substance Use Topics Alcohol use: Not Currently HPI Ms. Turner is seen in follow up on coronary artery disease s/p stenting of the RCA on 12/19/2012, and Circumflex/Obtuse marginal branch on 01/12/2015. She has hypertension on medical therapy, she has chronic diastolic heart failure. Cardiac cath findings on 01/12/2015: 1. Coronary artery disease with severe stenosis in the first obtuse marginal branch at the ostium. 2. A 90% stenosis in the first diagonal branch, which is a very small vessel. 3. Moderate 50% stenosis in the ostium of the right coronary artery with patent proximal right coronary artery stent. 4. Successful balloon dilatation and bare-metal stenting of 90% ostial circumflex stenosis using a Vision 3.0 x 23 mm stent with reduction of the stenosis to 0%. cardiac catheterization on 08/25/2016, because of symptoms of unstable angina.: 1. Coronary artery disease. 2. Patent previously placed proximal right coronary artery and mid circumflex stents. 3. 90% stenosis in a small first diagonal branch. 4. Moderate disease in the mid left anterior descending and the mid right coronary artery. 5. Elevated filling pressures. 6. Moderate pulmonary hypertension. 7. Preserved cardiac output and cardiac index. Given that the above angiographic appearance is almost identical to the prior angiogram in 2014, the coronary artery disease will be managed medically. The first diagonal branch is of small caliber and is not suitable for coronary intervention. Her diuretic therapy was increased maintenance of 60 mg daily. 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 Visit of 07/18/2017: At last visit of 06/20/2017 I had increased lasix from 60 to 80 mg daily. After that she was not eating or drinking after she was started on trazodone. She developed dehydration and JAKI, treated by hydration at [facility] and did well. Since then she has been feeling well and has been eating and drinking well and no longer takes trazodone and lasix is 40 mg daily. No chest pain and no dyspnea. Her Cr on 07/09/2017 was 1.96 and down to 1.7 on 07/10/2017. Update 11/16/2017: She is seen in follow up. Most recently she was admitted to [facility] with decompensated diastolic heart failure. She was diuresed, went into JAKI with Cr 2.0 but her renal function is improving. She was changed from lasix to bumex. She is very nervous. She reports that she was getting chest discomfort during the admission but is ok now. Echocardiogram 11/02/2017: Normal ventricular systolic function. Moderate diastolic dysfunction. Severely elevated right sided pressures. [facility] 11/05/2017: Cr 1.55; BUN 55. NT-proBNP 4184 [facility] 11/12/2017: BUN 42, Cr 1.47, K 4.5. Update 01/04/2018: She is seen in follow up. Last visit I saw her after her admission to [facility] with heart failure and she developed JAKI. Her renal function was improving. She had musculoskeletal chest discomfort but no angina. She says she gets them once in a while. Her main issue is related to arthritis. Her breathing is ok. Carotid duplex 12/27/2017: Thre is less than 50% stenosis of the RIGHT internal carotid artery. There is 50-69% stenosis of the LEFT internal carotid artery. Doppler flows of the RIGHT and LEFT external carotid arteries are suggestive of greater than 50% stenosis. Antegrade vertebral artery Doppler flows. BMP 01/01/2018: Cr 1.65, BUN 40. K 3.9. Update 12/09/2018: She is seen in follow-up. Most recently she was admitted to the [facility] and transferred to [facility] due to decompensated diastolic heart failure in the setting of UTI. She underwent right heart catheterization that showed significantly elevated filling pressures and pulmonary hypertension. She underwent diuresis. Her renal function at discharge was improved with a creatinine of 1.57. She has been slowly recovering from the admission. She did have a fall this morning while trying to get out of bed. She has dizziness on standing. No chest pain. She feels tired. Wants to sleep all the time. Blood testing 11/24/2018: Hemoglobin 9.4. Potassium 4.6. Creatinine 1.57. BUN 56. Lipid : Triglycerides 70, cholesterol 128, LDL 63, HDL 51. Renal ultrasound 11/23/19 (more content not included)... [facility] 06-25-2021 Progress note Note Date/Time June 25, 2021 11:18am [facility] [address] [place] [address] Cardiology Progress Note Signed Patient: Elif Turner MR#: [id number] : 1945 Acct:[id number] Age/Sex: 75 / F Adm Date: 2 Loc: Room: [address] [place] [address] Type : ADM IN Attending Dr: Rusty Amor MD Copies to: ~ Date of Service: 06/25/2021 Subjective Principal diagnosis: NSTEMI status post PCI to RCA Interval history: Ms. Turner is a 75 year old female seen in interventional cardiology consultation at request of the hospitalist for new onset chest discomfort. Patient describes left-sided chest heaviness pressure discomfort radiating to the back, across the anterior precordium, inframammary into the left shoulder lasting for at least 15 minutes yesterday finally resolved after arrival. Initial ECGs were nonischemic. Troponins have trended upward greater than 1000 all consistent with acute coronary event. Patient has a known history of coronary disease with previous stents approximately 7 years ago in [place] details of which are unknown She really routinely follows with cardiology and saw her java sdet 3 months ago with no symptoms Comorbidities are noted for diabetes, obesity, hyperlipidemia, chronic kidney disease and essential hypertension Mrs. 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 Bolivar yesterday. 2 drug-eluting stents were placed in revascularization of the right coronary artery. Patient tolerated the procedure well without difficulty or complication. The procedure was done via the right common femoralarterial approach. Overnight she has had no chest pain or other anginal symptoms. She has had no problems with the right groin access site other than some mild soreness. She has been ambulating and up to the chair. This is all been without angina or dyspnea. She has no new complaints presently Exam Physical Exam Vital Signs: Temp Pulse Resp BP Pulse Ox 97.8 F 73 18 156/63 H 98 06/25/21 06:56 06/25/21 06:56 06/25/21 06:56 06/25/21 06:56 06/25/21 06:56 Const General: cooperative, healthy appearing, comfortable and no acute distress Nutritional Appearance: overweight Orientation: alert, awake and oriented x3 HEENT Head: normal to inspection Face and sinus: normal facial exam Mouth: oral mucosae normal and moist mucous membranes Teeth and gingiva: fair dentition Eyes Conjunctivae: conjunctivae normal Sclera: sclerae normal Pupils: PERRL and accommodation normal EOM: EOM intact bilaterally Direct ophthalmoscopy: no photophobia Neck Neck: full ROM, no lymphadenopathy and supple Neck mass: No Thyroid: thyroid normal Carotids: normal carotid upstroke Lymphatic: no lymphadenopathy noted Chest Chest palpation & inspection: normal inspection of the chest Resp Effort & Inspection: normal respiratory effort Auscultation: clear to auscultation bilaterally Cardio Jugular venous pressure: no JVD Palpation: normal PMI Rate: regular rate Rhythm: regular rhythm Heart Sounds: S1 normal, S2 normal and gallop S4 gallop Pulses: radial pulses present, femoral pulses present, posterior tibial pulses present and dorsalis pedis present Other: Right groin access site with mild swelling and ecchymosis. No hematoma. No pulsatile mass. 2+ pulse. GI Inspection: normal to inspection Palpation: soft and no hepatosplenomegaly Auscultation: normal bowel sounds Skin General: no rashes or lesions noted Trauma: no lacerations or abrasions Wounds: no wounds Neuro General: patient alert, patient awake, moves all extremities and no focal motor deficits Cranial Nerves: CN's II-XII intact bilaterally Cognition: normal cognition Speech: speech normal Motor: muscle tone normal throughout Extrem General: full ROM and no clubbing, cyanosis or edema Psych Appearance: grossly normal Mental Status: mental status grossly normal Mood: congruent mood Affect: normal affect Speech and Movement: speech and movement normal Attitude: cooperative Thought Process: normal Thought Content: normal Insight: insight good Judgment: judgment good Objective Labs CBC & Chem 7: 06/25/21 05:24 06/24/21 05:10 Labs: Laboratory Results - last 24 hr 06/24/21 06/24/21 06/24/21 11:33 11:44 11:44 Corrected WBC Uncorrected WBC Count RBC Hgb Hct MCV MCH MCHC RDW Plt Count MPV Neut % (Auto) Lymph % (Auto) [place] % (Auto) Eos % (Auto) Baso % (Auto) Neut # (Auto) Lymph # (Auto) [place] # (Auto) Eos # (Auto) Baso # (Auto) Nucleated RBC % (auto) PT INR APTT 43.4 H POC Glucose 87 POC Glucose Comment Glu2: cleaned meter Troponin I High Sens 879 H* 06/24/21 06/24/21 06/25/21 17:13 22:09 05:24 Corrected WBC 10.5 Uncorrected WBC Count 10.5 RBC 3.55 L Hgb 11.1 L Hct 32.7 L MCV 92.1 MCH 31.3 MCHC 34.0 RDW 12.7 Plt Count 205 MPV 9.0 Neut % (Auto) 90.9 Lymph % (Auto) 4.3 Clayton % (Auto) 4.5 Eos % (Auto) 0.0 Baso % (Auto) 0.3 Neut # (Auto) 9.6 H Lymph # (Auto) 0.4 L [place] # (Auto) 0.5 Eos # (Auto) 0.0 Baso # (Auto) 0.0 Nucleated RBC % (auto) 0.0 PT INR APTT POC Glucose 322 294 POC Glucose Comment Troponin I High Sens 06/25/21 06/25/21 06/25/21 05:24 05:24 07:51 Corrected WBC Uncorrected WBC Count RBC Hgb Hct MCV MCH MCHC RDW Plt Count MPV Neut % (Auto) Lymph % (Auto) [place] % (Auto) Eos % (Auto) Baso % (Auto) Neut # (Auto) Lymph # (Auto) [place] # (Auto) Eos # (Auto) Baso # (Auto) Nucleated RBC % (auto) PT 11.5 INR 1.0 APTT 24.8 L POC Glucose 184 POC Glucose Comment Troponin I High Sens 735 H* A&P - Cardiology (1) NSTEMI (non-ST elevated myocardial infarction): Assessment/Problem Details: Doing well currently on postprocedure day 1 status post revascularization of chronically totally occluded right coronary artery with implantation of BAMBI x2. Normal resting left ventricular regional systolic function. Serum troponin assays trending downward. No complication at right groin vascular access site. Patient appears clinically stable and ready for discharge to home today. Code(s): I21.4 - Non-ST elevation (NSTEMI) myocardial infarction Status: Acute Plan: Recommend the following medical regimen: #1 aspirin 81 mg daily 2. Brilinta 90 mg twice daily 3. Losartan 50 mg daily 4. Hydralazine 50 mg twice daily 5. Carvedilol 12.5 mg twice daily 6. Atorvastatin 80 mg daily No lifting greater than equal to 10 pounds for 10 days. Patient may follow-up with her primary java sdet in [place] and should do so within 10 days Enrollment in phase 2 monitored cardiac rehabilitation is strongly recommended. (2) Chronic kidney disease: Assessment/Problem Details: No evidence of worsening renal function or contrast-induced nephropathy. Code(s): N18.9 - Chronic kidney disease, unspecified Status: Acute Plan: Maintain current medical therapy, recommendations as above. (3) CAD (coronary artery disease): Assessment/Problem Details: With remote history of PCI as well as now recent history of revascularization ofCTO of the mid right coronary artery. Clinically stable. 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 Code(s): E11.9 - Type 2 diabetes mellitus without complications Status: Acute Plan: Okay to resume oral metformin in 24 hours. Aggressive glycemic control and control of serum insulin levels is recommended. 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 Within the construct of phase 2 monitored cardiac rehabilitation, a minimum 10% total body weight loss is strongly recommended Plan Okay for discharge to home today. Patient may follow-up with her primary java sdet in [place] within 10 days. Again, as mentioned above, enrollment in phase2 monitored cardiac rehabilitation is strongly recommended Time spent with patient Time Spent With Patient (min): 30 Documented By: Andrea Marinelli MD 06/25/21 1116 Signed By: <Electronically signed by Andrea Marinelli MD> 06/25/21 1127 [facility] Work Phone: [phone] 115-176305-07-2022 History of Present illness Narrative* Andreas Freitas MD - 06/25/2021 10:50 AM EDT Images from the original note were not included. EMERGENCY TRIAGE, TREAT AND TRANSPORT (ET3) DOCUMENTATION OF TELEHEALTH VISIT Date / Time: 06/23/20211929 Name: Elif Turner : 1945 SSN: (Not on file) EMS Agency: [facility] [x] Verbal consent obtained [] Implied consent - patient with potential emergency medical condition requiring assessment of capacity to refuse treatment and/or transport VITAL SIGNS: see flowsheet documentation Reason for Telehealth Visit: Chief Complaint Patient presents with Chest symptoms/complaints History of Present Ilness: This is a very pleasant 75-year-old female with history of diabetes, coronary artery disease, stents x2-last was 5 years ago, fibromyalgia. Patient states that she has been having intermittent chest pain for the past 1-2 days. Patient states that she has also had increasing dyspnea with exertion, shortness of breath when lying flat, and a cough productive of white sputum. Patient also has noted increasing leg swelling. She denies diaphoresis, vomiting, fever. She does have nausea. She [id number] due to the chest pain, but the paramedics contacted ET 3 is the patient was refusing any further care or transport to the hospital. Additional pertinent PMHx, SocHx, FamHx: See above Review of Systems: Denies the following: see above Exam: General: Awake, no distress ENT: normocephalic, atraumatic Pulmonary: No respiratory distress, EMS reports clear lungs. Cardiovascular: Well perfused Neurologic: Oriented to person, place, time and events. Moving all extremities equally. Psychiatric: Appropriate. Good insight and judgement. Medical Decision Making: EMS 12 lead EKG was sent via picture and did not demonstrate any clear ST or T- wave changes. No STEMI. I spoke to the patient at length regarding my concern about potential cardiac dysfunction. Stress that her symptoms including the PND may demonstrate that she has has fluids in the lung or some type of cardiac myopathy. After this discussion the patient consented to go to the hospital. Disposition Supported by Telehealth Assessment: ET3 transport decisions: Transport to hospital EMS Disposition Reported: Same ET3 Encounter Completed by: Andreas Freitas MD documented in this [id number] Progress note Author Rusty Amor [facility] June 24, 2021 4:36pm Note Date/Time June 24, 2021 3:50pm [facility] [address] [place] [address] Hospitalist Progress Note Signed Patient: Elif Turner MR#: [id number] : 1945 Acct:[id number] Age/Sex: 75 / F Adm Date: 2 Loc: Room: [address] [place] [address] Type : ADM IN Attending Dr: Rusty Amor MD Copies to: ~ Date of Service: 06/24/2021 Subjective Subjective Narrative: Attending note: I saw the patient personally on the day of encounter. I reviewed the relevant history, and performed the cruz elements of the physical examination. I reviewedthe relevant laboratory workup, radiological studies and the current treatment plan. I formulated the plan of care and confirmed it with the resident/student/PU[employer] OPERATOR. Patient was seen and examined at bedside following cardiac catheterization. Sheis lying down and resting comfortably. She denies any pain except at the site of her procedure. She denies any nausea or vomiting. She has no acute complaints at this time. Exam Physical Exam Vital Signs: Temp Pulse Resp BP Pulse Ox 98.2 F 16 L 16 160/67 H 98 06/24/21 11:41 06/24/21 11:41 06/24/21 11:41 06/24/21 11:41 06/24/21 11:41 Narrative: General: cooperative, comfortable; alert, awake HEENT: normocephalic, atraumatic Neck: Normal visual inspection, full ROM, no LAD Cardiovascular: Regular Rate and Rhythm, S1, S2, no murmurs, gallops, or rubs Respiratory: Clear to auscultation bilaterally, no wheezes, rales, or rhonchi GI: soft, non-tender, no hepatosplenomegaly Neuro: moves all extremities, no sensory deficits, no focal motor deficits Ext: Full ROM, No calf erythema. No clubbing, cyanosis, or edema bilaterally Skin: No rashes or lesions visualized Psych: Normal appearance, speech and movement normal Objective Lab Results CBC & Chem 7: 06/24/21 05:10 06/24/21 05:10 Meds Allergies and Active Meds Allergies amoxicillin [From Trimox] Allergy (Verified 06/24/21 04:33) Unknown Reaction clindamycin [From Cleocin] Allergy (Verified 06/24/21 04:33) Difficulty Swallowing cyclobenzaprine [From Flexeril] Allergy (Verified 06/24/21 04:33) Itching doxycycline Allergy (Verified 06/24/21 04:33) Unknown Reaction exenatide [From Byetta] Allergy (Verified 06/24/21 04:33) Rash Iodinated Contrast Media [Contrast Media - Iodine based] Allergy (Verified 06/24/21 04:33) Itching Penicillins Allergy (Verified 06/24/21 04:33) Itching prochlorperazine [From Compazine] Allergy (Verified 06/24/21 04:33) Cramping of the Muscles sucralfate Allergy (Verified 06/24/21 04:33) Nausea trazodone Allergy (Verified 06/24/21 04:33) Nausea Active Meds: Active Medications Generic Name Dose Route Start Last Admin Trade Name Freq PRN Reason Stop Dose Admin Acetaminophen 650 mg 06/24/21 04:45 Acetaminophen 325 Mg Tablet PO 06/24/22 04:44 Q6HR PRN Pain Scale 1 - 3 or fever Hydrocodone Bitart/Acetaminophen 1 tab 06/24/21 04:45 06/24/21 05:37 Hydrocodone/Acetaminophen 5-325 Mg Tablet PO 1 tab Q4H PRN Administration Pain Scale 4 - 7 Alprazolam 0.5 mg 06/24/21 04:52 Alprazolam 0.5 Mg Tablet PO 12/21/21 04:51 TID PRN Anxiety Aspirin 81 mg 06/24/21 09:00 06/24/21 08:55 Aspirin 81 Mg Tab.Chew PO 06/24/22 08:59 81 mg DAILY BOYD Administration Atorvastatin Calcium 80 mg 06/24/21 22:00 Atorvastatin 80 Mg Tablet PO 06/24/22 21:59 HS BOYD Atropine Sulfate 1 mg 06/24/21 13:52 Atropine Sulfate 1 Mg/10 Ml Syringe IV-PUSH ONCE PRN Symptomatic Bradycardia Bupropion HCl 150 mg 06/24/21 09:00 06/24/21 08:55 Bupropion 150 Mg Tab.Er.24h PO 06/24/22 08:59 150 mg DAILY BOYD Administration Carvedilol 12.5 mg 06/24/21 08:00 06/24/21 08:54 Carvedilol 12.5 Mg Tablet PO 06/24/22 07:59 Not Given BID.WITH.MEALS BOYD Dextrose 0 gm 06/24/21 05:01 Dextrose 50% In Water 25 Gm/50 Ml Syringe IV-PUSH 06/24/22 05:00 PRN PRN Hypoglycemia Docusate Sodium 100 mg 06/24/21 05:00 Docusate 100 Mg Capsule PO 06/24/22 08:59 BID PRN constipation Fluticasone Propionate 1 puff 06/24/21 09:00 06/24/21 09:13 Fluticasone Propionate 44 120 Puff/10.6 Gm Inhaler INHALATION 06/24/22 08:59 1 puff BID BOYD Administration Glucose 0 gm 06/24/21 05:01 Dextrose 40% Gel 15 Gm Tube PO 06/24/22 05:00 PRN PRN Hypoglycemia Hydralazine HCl 50 mg 06/24/21 09:00 06/24/21 08:55 Hydralazine 50 Mg Tablet PO 06/24/22 08:59 50 mg BID BOYD Administration Sodium Chloride 250 mls @ 999 mls/hr 06/24/21 13:52 0.9% Sodium Chloride 250 Ml IV 06/24/22 13:51 PRN PRN Hypotension Dextrose/Sodium Chloride 1,000 mls @ 100 mls/hr 06/24/21 14:00 5 % Dextrose-0.45 % Nacl IV 06/24/21 16:59 .Q10H [facility] Nitroglycerin/Dextrose 50 mg in 250 mls @ 1.5 mls/hr 06/24/21 15:30 Nitroglycerin 50 Mg-*D5w* IV 06/24/22 15:29 .Q24H [facility] Protocol 5 MCG/MIN Insulin Aspart 0 units 06/24/21 08:00 06/24/21 12:10 Insulin Aspart 300 Units/3 Ml Insuln.Pen SUBCUT 06/24/22 07:59 Not Given TID.WM.HS [facility] Protocol Insulin Detemir 10 units 06/24/21 22:00 Insulin Detemir 300 Units/3 Ml Insuln.Pen SUBCUT 06/24/22 21:59 QHS [facility] Lidocaine HCl 10 ml 06/24/21 13:52 Lidocaine 2% Mdv 50 Ml Vial SUBCUT ONCE PRN Sheath Removal Losartan Potassium 50 mg 06/24/21 09:00 06/24/21 08:55 Losartan 50 Mg Tablet PO 06/24/22 08:59 50 mg DAILY BOYD Administration Meperidine HCl 25 mg 06/24/21 13:52 Meperidine Pf 25 Mg/Ml Vial IV-PUSH ONCE PRN Sheath Removal Montelukast Sodium 10 mg 06/24/21 22:00 Montelukast 10 Mg Tablet PO 06/24/22 21:59 [facility] Nitroglycerin 0.4 mg 06/24/21 05:27 Nitroglycerin 0.4 Mg Tab.Subl SUBLINGUAL 06/24/22 05:26 Q5M PRN Chest Pain Omeprazole 20 mg 06/24/21 09:00 06/24/21 08:54 Omeprazole 20 Mg Capsule.Dr PO 06/24/22 08:59 20 mg BID BOYD Administration Paroxetine HCl 40 mg 06/24/21 09:00 06/24/21 08:55 Paroxetine 20 Mg Tablet PO 06/24/22 08:59 40 mg DAILY BOYD Administration Potassium Chloride 40 meq 06/24/21 10:21 Potassium Chloride Er 20 Meq Tab.Er.Prt PO STAT PRN Hypokalemia Promethazine HCl 12.5 mg 06/24/21 13:52 Promethazine 25 Mg/Ml Vial IV-PUSH ONCE PRN Sheath Removal Temazepam 30 mg 06/24/21 22:00 Temazepam 15 Mg Capsule PO 06/24/22 21:59 HS [facility] Ticagrelor 90 mg 06/24/21 23:00 Ticagrelor 90 Mg Tablet PO 06/24/22 22:59 BID [facility] A&P - Hospitalist Assessment/Plan (1) NSTEMI (non-ST elevated myocardial infarction): (2) Chronic kidney disease: (3) CAD (coronary artery disease): (4) Diabetes: (5) HTN (hypertension): Plan 1. NSTEMI s/p cardiac catheterization ?Patient had catheterization done this morning showing proximal RCA stents with chronic occlusion of mid/distal segment -Per cardio, Brilinta added to aspirin for dual antiplatelet therapy -Appreciate further recommendations from Cardiology -Continue atorvastatin, coreg, and losartan -Repeat EKG and troponin in the morning -CBC in AM 2. Coronary artery disease ?Status post 2 stents 5 and 7 years ago respectively per patient ?Continue atorvastatin 40 mg and 81 mg aspirin 3. Diabetes ?Hold home metformin and glipizide ?Initiate basal detemir 10 units with sliding scale coverage 4. CKD ?BUN 32 and creatinine 2.05 at [place] yesterday Continue home medications. PT/OT Full code Rapid COVID-negative at [place] Documented By: Nick Carr DO, RES 06/24/21 154 7 Signed By: <Electronically signed by DO JOSE DE JESUS Carr> 06/24/21 1633 <Electronically signed by Rusty Amor MD> 06/24/21 [facility] Work Phone: [phone]) 370-326405-06-2022 Consult note Author W Osmel [facility] June 24, 2021 2:02pm Note Date/Time June 24, 2021 12:55p [facility] [address] [place] [address] Cardiology Consult Note Signed Patient: Elif Turner MR#: [id number] : 1945 Acct:[id number] Age/Sex: 75 / F Adm Date: 2 Loc: 4 Room: [address] [place] [address] Type : ADM IN Attending Dr: Rusty Amor MD Copies to: MD Amador Winston MD W Scott Sheldon, DO~ Cardiology HPI History of Present Illness Consult Date: 06/24/21 Reason for Consult: Non-ST elevation [place] HPI: Ms. Turner is a 75 year old female seen in interventional cardiology consultation at request of the hospitalist for new onset chest discomfort. Patient describes left-sided chest heaviness pressure discomfort radiating to the back, across the anterior precordium, inframammary into the left shoulder lasting for at least 15 minutes yesterday finally resolved after arrival. Initial ECGs were nonischemic. Troponins have trended upward greater than 1000 all consistent with acute coronary event. Patient has a known history of coronary disease with previous stents approximately 7 years ago in [place] details of which are unknown She really routinely follows with cardiology and saw her java sdet 3 months ago with no symptoms Comorbidities are noted for diabetes, obesity, hyperlipidemia, chronic kidney disease and essential hypertension She actually denies previous myocardial infarction, revascularization, she does admit to history of remote stroke (details of which are unknown), fibromyalgia, acid reflux Risk benefits alternatives and informed decision-making process performed for over 30 minutes this morning. We will proceed with early invasive management bymeans of diagnostic cardiac catheterization possible revascularization. Review of Systems Review of Systems All other systems reviewed & are negative unless noted below or in HPI Constitutional Constitutional: Reports as per HPI ENT Ears, Nose, Mouth, and Throat: Reports system reviewed and no additional complaints, except as documented Cardiovascular Cardiovascular: Reports as per HPI, Reports chest pain at rest and Reports radiating jaw, neck or arm pain Respiratory Respiratory: Reports system reviewed and no additional complaints, except as documented Gastrointestinal Gastrointestinal: Reports system reviewed and no additional complaints, except as documented Genitourinary Genitourinary: Reports system reviewed and no additional complaints, except as documented Musculoskeletal Musculoskeletal: Reports system reviewed and no additional complaints, except asdocumented Integumentary/Breasts Skin/Breast: Reports system reviewed and no additional complaints, except as documented Neurologic Neurologic: Reports system reviewed and no additional complaints, except as documented PMFSH Vaccinated for COVID-19?: No Medical History (Updated 06/24/21 @ 05:16 by Marlon Leon DO, RES) Allergies Anxiety Breast cyst CAD (coronary artery disease) Cholecystectomy planned Chronic kidney disease Depression Diabetes Fibromyalgia GERD (gastroesophageal reflux disease) HTN (hypertension) Hyperlipemia Surgical History (Updated 06/24/21 @ 04:42 by Jennyfer Schmidt RN) H/O heart artery stent H/O: hysterectomy Family History (Updated 06/24/21 @ 04:43 by Jennyfer Schmidt RN) Mother Diabetes Emphysema lung Father Stroke Social History Smoking Status: Never smoker Substance Use Type: None Meds Medications and Allergies Allergies amoxicillin [From Trimox] Allergy (Verified 06/24/21 04:33) Unknown Reaction clindamycin [From Cleocin] Allergy (Verified 06/24/21 04:33) Difficulty Swallowing cyclobenzaprine [From Flexeril] Allergy (Verified 06/24/21 04:33) Itching doxycycline Allergy (Verified 06/24/21 04:33) Unknown Reaction exenatide [From Byetta] Allergy (Verified 06/24/21 04:33) Rash Iodinated Contrast Media [Contrast Media - Iodine based] Allergy (Verified 06/24/21 04:33) Itching Penicillins Allergy (Verified 06/24/21 04:33) Itching prochlorperazine [From Compazine] Allergy (Verified 06/24/21 04:33) Cramping of the Muscles sucralfate Allergy (Verified 06/24/21 04:33) Nausea trazodone Allergy (Verified 06/24/21 04:33) Nausea Home Medications alprazolam 0.5 mg tablet 0.5 mg PO TID PRN 06/24/21 [History Confirmed 06/24/21] amlodipine 10 mg tablet 10 mg PO DAILY 06/24/21 [History Confirmed 06/24/21] aspirin 81 mg tablet 81 mg PO DAILY 06/24/21 [History Confirmed 06/24/21] atorvastatin 40 mg tablet 40 mg PO HS 06/24/21 [History Confirmed 06/24/21] bupropion HCl 150 mg 24 hr tablet, extended release 150 mg PO DAILY 06/24/21 [History Confirmed 06/24/21] fluticasone furoate 50 mcg/actuation blister powder for inhalation 2 inh INHALATION DAILY 06/24/21 [History Confirmed 06/24/21] furosemide 40 mg tablet 40 mg PO DAILY 06/24/21 [History Confirmed 06/24/21] glipizide 10 mg tablet 10 mg PO DAILY 06/24/21 [History Confirmed 06/24/21] hydralazine 50 mg tablet 50 mg PO BID 06/24/21 [History Confirmed 06/24/21] hydrocodone 5 mg-acetaminophen 325 mg tablet 1 tab PO Q8H PRN 06/24/21 [History Confirmed 06/24/21] losartan 50 mg tablet 50 mg PO DAILY 06/24/21 [History Confirmed 06/24/21] metformin 500 mg tablet,extended release 24 hr 500 mg PO BID 06/24/21 [History Confirmed 06/24/21] montelukast 10 mg tablet 10 mg PO HS 06/24/21 [History Confirmed 06/24/21] ondansetron 4 mg disintegrating tablet 4 mg PO Q6H PRN 06/24/21 [History Confirmed 06/24/21] pantoprazole 40 mg tablet,delayed release 40 mg PO BID 06/24/21 [History Confirmed 06/24/21] paroxetine HCl 40 mg tablet 40 mg PO DAILY 06/24/21 [History Confirmed 06/24/21] temazepam 30 mg capsule 30 mg PO HS 06/24/21 [History Confirmed 06/24/21] Exam Physical Exam Vital Signs: Temp Pulse Resp BP Pulse Ox 98.2 F 16 L 16 160/67 H 98 06/24/21 11:41 06/24/21 11:41 06/24/21 11:41 06/24/21 11:41 06/24/21 11:41 Const General: cooperative, comfortable and no acute distress Nutritional Appearance: obese Orientation: alert, awake and oriented x3 HEENT Head: normal to inspection Neck Neck: normal visual inspection Chest Chest palpation & inspection: normal inspection of the chest Resp Effort & Inspection: normal respiratory effort Auscultation: clear to auscultation bilaterally Cardio Palpation: normal PMI Rate: regular rate Rhythm: regular rhythm Heart Sounds: S1 normal, S2 normal and no murmurs GI Inspection: obesity Palpation: soft Skin General: no rashes or lesions noted Neuro General: patient alert, patient awake and patient oriented x3 Cognition: normal cognition Speech: speech normal Extrem General: no clubbing, cyanosis or edema Results Labs CBC & CMP: 06/24/21 05:10 06/24/21 05:10 Lab results: Cardiac Enzymes 06/24/21 Range/Units 05:10 AST 20 (10-42) U/L Lipids 06/24/21 Range/Units 05:10 Triglycerides 69 (35-149) mg/dL Cholesterol 128 L (140-200) mg/dL HDL Cholesterol 58 (35-85) mg/dL Cholesterol/HDL Ratio 2.2 (<5.0) CBC 06/24/21 Range/Units 05:10 RBC 3.31 L (3.60-5.00) x10E6/uL Hgb 10.4 L (11.8-15.4) g/dL Hct 30.5 L (34.0-46.4) % Plt Count 191 (150-450) x10E3/uL Neut # (Auto) 3.8 (1.8-7.7) x10E3/uL Lymph # (Auto) 1.8 (1.00-4.8) x10E3/uL [place] # (Auto) 0.6 (0.0-0.8) x10E3/uL Eos # (Auto) 0.2 (0.0-0.45) x10E3/uL Baso # (Auto) 0.1 (0.0-0.2) x10E3/uL Comprehensive Metabolic Panel 06/24/21 Range/Units 05:10 Sodium 140 (136-146) mmol/L Potassium 4.1 (3.5-5.1) mmol/L Chloride 108 (95-114) mmol/L Carbon Dioxide 25.1 (22.0-30.0) mmol/L BUN 27 H (9-23) mg/dL Creatinine 1.64 H (0.44-1.03) mg/dL Glucose 65 L (70-100) mg/dL Calcium 9.1 (8.2-10.2) mg/dL AST 20 (10-42) U/L ALT 25 (10-60) U/L Alkaline Phosphatase 57 (32-92) U/L Total Protein 5.7 L (6.1-7.9) gm/dL Albumin 3.1 L (3.2-5.5) gm/dL Intake and Output 06/23/21 06/24/21 06/24/21 23:59 07:59 15:59 Intake Total 200 / 200 Balance 200 / 200 Intake: Oral 200 / 200 Other: # Unmeasured Voids 1 Weight 92.2 kg Date of Last Bowel Movement 06/22/21 06/22/21 Patient Weight 06/24/21 23:59 Weight 92.2 kg Lab 06/24/21 06/24/21 05:10 11:44 PT 11.7 INR 1.0 APTT 35.4 43.4 H EKG Interpretations EKG EKG results cardiology: WNL and sinus rhythm A&P - Cardiology (1) NSTEMI (non-ST elevated myocardial infarction): Code(s): I21.4 - Non-ST elevation (NSTEMI) myocardial infarction (2) Chronic kidney disease: Code(s): N18.9 - Chronic kidney disease, unspecified (3) CAD (coronary artery disease): Code(s): I25.10 - Atherosclerotic heart disease of [place] coronary artery without angina pectoris (4) Diabetes: Code(s): E11.9 - Type 2 diabetes mellitus without complications (5) HTN (hypertension): Code(s): I10 - Essential (primary) hypertension Documented By: Gen Bolivar DO 06/24/21 1248 Signed By: <Electronically signed by Gen Bolivar DO> 06/24/21 1402 [facility] Work Phone: [phone]) 886-622405-06-2022 [facility] History and physical note Author Xander Nam [facility] June 24, 2021 6:14am Note Date/Time June 24, 2021 5:14am [facility] [address] [place] [address] Hospitalist H&P Signed Patient: Elif Turner MR#: [id number] : 1945 Acct:[id number] Age/Sex: 75 / F Adm Date: 2 Loc: Room: [address] [place] [address] Type : ADM IN Attending Dr: Xander Ortiz MD Copies to: Marlon Leon DO, RES MD Amador Rodas MD~ HPI DATE OF EXAMINATION: 06/24/21 CHIEF COMPLAINT: Chest pain HISTORY OF PRESENT ILLNESS: Elif Turner is a 75-year-old female with a past medical history of CAD status post 2 stents (approximately 5 and 7 years ago respectively), diabetes mellitus type II, fibromyalgia, CKD [facility] that started in the afternoon while she was watching TV with associated shortness of breath. She described this pain as pressure that involved her left chest as well as left breast and axilla. She presented to the [place] emergency department and blood pressure was 160/71 with pulse of 75. EKG was unremarkable. Chest x- ray was normal. Hemoglobin 11.4. Hematocrit 36.7. Sodium 132. Potassium 5.1. Glucose 195. BUN 32. Creatinine 2.05. Initial troponin was 162.6. Subsequent troponin was 658.9. Patient does not know baseline creatinine/GFR. The patient was treated with nitroglycerin as well as heparin bolus at 60 units/kg and maintenance and 12 units/kg/h. She was transferred to [facility] for cardiac care for NSTEMI. The patient denied fever/chills, N/V, constipation/diarrhea. She does have history of chronic headaches however notes worsening of headache since yesterday. She does take Lasix as well with as needed for pedal edema. On evaluation at [facility], patient continues to endorse resting chest pain however diminished since initial presentation at [place]. Per RN she was saturating 94% on room air however requested to be put on 2 L NC. Patient was agreeable to trying wean off nasal cannula to target saturation greater 90%. Review of Systems Review of Systems Review of systems: General: No additional complaints except as documented in HPI and below. No fevers or chills. Endocrine: Endorses weakness. Cardiovascular: Endorses left sided chest pain and pressure Respiratory: No shortness of breath, cough, congestion Gastrointestinal: No nausea, vomiting, constipation, diarrhea. Endorses abdominal pain related to acid reflux. Musculoskeletal: Left axilla pain. Extremities: Endorses baseline pedal edema Neuro: No focal deficits Psych: No mood changes Derm: No rashes PMFSH Vaccinated for COVID-19?: No Medical History (Updated 06/24/21 @ 05:16 by Marlon Leon DO, RES) Allergies Anxiety Breast cyst CAD (coronary artery disease) Cholecystectomy planned Chronic kidney disease Depression Diabetes Fibromyalgia GERD (gastroesophageal reflux disease) HTN (hypertension) Hyperlipemia Surgical History (Updated 06/24/21 @ 04:42 by Jennyfer Schmidt RN) H/O heart artery stent H/O: hysterectomy Family History (Updated 06/24/21 @ 04:43 by Jennyfer Schmidt RN) Mother Diabetes Emphysema lung Father Stroke Social History Smoking Status: Never smoker Substance Use Type: None Meds Medications and Allergies Allergies amoxicillin [From Trimox] Allergy (Verified 06/24/21 04:33) Unknown Reaction clindamycin [From Cleocin] Allergy (Verified 06/24/21 04:33) Difficulty Swallowing cyclobenzaprine [From Flexeril] Allergy (Verified 06/24/21 04:33) Itching doxycycline Allergy (Verified 06/24/21 04:33) Unknown Reaction exenatide [From Byetta] Allergy (Verified 06/24/21 04:33) Rash Iodinated Contrast Media [Contrast Media - Iodine based] Allergy (Verified 06/24/21 04:33) Itching Penicillins Allergy (Verified 06/24/21 04:33) Itching prochlorperazine [From Compazine] Allergy (Verified 06/24/21 04:33) Cramping of the Muscles sucralfate Allergy (Verified 06/24/21 04:33) Nausea trazodone Allergy (Verified 06/24/21 04:33) Nausea Home Medications alprazolam 0.5 mg tablet 0.5 mg PO TID PRN 06/24/21 [History Confirmed 06/24/21] amlodipine 10 mg tablet 10 mg PO DAILY 06/24/21 [History Confirmed 06/24/21] aspirin 81 mg tablet 81 mg PO DAILY 06/24/21 [History Confirmed 06/24/21] atorvastatin 40 mg tablet 40 mg PO HS 06/24/21 [History Confirmed 06/24/21] bupropion HCl 150 mg 24 hr tablet, extended release 150 mg PO DAILY 06/24/21 [History Confirmed 06/24/21] fluticasone furoate 50 mcg/actuation blister powder for inhalation 2 inh INHALATION DAILY 06/24/21 [History Confirmed 06/24/21] furosemide 40 mg tablet 40 mg PO DAILY 06/24/21 [History Confirmed 06/24/21] glipizide 10 mg tablet 10 mg PO DAILY 06/24/21 [History Confirmed 06/24/21] hydralazine 50 mg tablet 50 mg PO BID 06/24/21 [History Confirmed 06/24/21] hydrocodone 5 mg-acetaminophen 325 mg tablet 1 tab PO Q8H PRN 06/24/21 [History Confirmed 06/24/21] losartan 50 mg tablet 50 mg PO DAILY 06/24/21 [History Confirmed 06/24/21] metformin 500 mg tablet,extended release 24 hr 500 mg PO BID 06/24/21 [History Confirmed 06/24/21] montelukast 10 mg tablet 10 mg PO HS 06/24/21 [History Confirmed 06/24/21] ondansetron 4 mg disintegrating tablet 4 mg PO Q6H PRN 06/24/21 [History Confirmed 06/24/21] pantoprazole 40 mg tablet,delayed release 40 mg PO BID 06/24/21 [History Confirmed 06/24/21] paroxetine HCl 40 mg tablet 40 mg PO DAILY 06/24/21 [History Confirmed 06/24/21] temazepam 30 mg capsule 30 mg PO HS 06/24/21 [History Confirmed 06/24/21] Exam Physical Exam Vital Signs: Temp Pulse Resp BP Pulse Ox 97.6 F 65 16 166/66 H 94 L 06/24/21 04:05 06/24/21 04:05 06/24/21 04:05 06/24/21 04:05 06/24/21 04:05 Narrative: General: Cooperative, healthy appearing, and comfortable. Alert and awake. HE: Normal visual examination. Normocephalic. Eyes: Normal appearance. NT: Ears and nose grossly normal. Cardio: RRR. S1 and S2 present. No murmurs, rubs, or gallops. Tenderness to palpation of left chest wall and axilla. Lungs: Normal respiratory effort. Clear to auscultation bilaterally. No crackles, wheezes, or diminished lung sounds. GI: Abdomen soft with No hepatosplenomegaly. Some epigastric tenderness. Skin: No rashes or lesions on visual examination Neuro: No focal deficits Psych: Conversant, congruent mood. Extremities: Pedal edema noted. A&P - Hospitalist Assessment/Plan (1) NSTEMI (non-ST elevated myocardial infarction): (2) CAD (coronary artery disease): (3) Diabetes: (4) Chronic kidney disease: (5) HTN (hypertension): (6) GERD (gastroesophageal reflux disease): (7) Depression: (8) Fibromyalgia: Plan 1. NSTEMI ?Intermittent chest pain since yesterday afternoon. ?Chest x-ray unremarkable ?EKG at [place] normal sinus rhythm with no acute ischemia ?At [place] troponin 162.6 with repeat 658.9. Repeat at [facility] ordered. ?Patient received bolus porcine heparin at 60 units/kg at [place] with maintenance at 12 units/kg/h. Maintenance will be continued here. ?Coreg initiated at 12.5 mg twice daily. We will hold amlodipine pending cardiology recommendation. ?Continue losartan. ? Hold amlodipine and lasix pending cardiology consult. ?Cardiology consult ?Morphine for severe pain. Target pulse ox greater than 90%. Nitro for worsening chest pain. Received 324 mg aspirin at [place]. 2. Coronary artery disease ?Status post 2 stents 5 and 7 years ago respectively per patient ?Continue atorvastatin 40 mg and 81 mg aspirin 3. Diabetes ?Hold home metformin and glipizide ?Initiate basal detemir 10 units with sliding scale coverage 4. CKD ?BUN 32 and creatinine 2.05 at [place] yesterday Continue home medications. PT/OT Full code Rapid COVID-negative at [place] Attending Provider Attestation Attending Physician Attestation: I personally saw this patient on the day of the encounter, reviewed the history,performed the cruz elements of the exam, formulated the plan of care and confirmed the resident's/news internship/medical student's dictation/written note. Documented By: Marlon Leon DO, RES 06/24/21 050 4 Signed By: <Electronically signed by DO JOSE DE JESUS Leon> 06/24/21 0537 <Electronically signed by Xander Ortiz MD> 06/24/21 0614 [facility] Work Phone: 1(260) 496-130011-30-2021 NoteChief Complaint consultation for epigastric pain HPI Staff 75 year old female presents on consultation from Dr. Abdalla for epigastric pain, decreased appetite and nausea. Long standing history of intermittent epigastric pain with nausea. Denies emesis. Verbalized anything she eats or drinks makes my stomach roll . No weight loss. Taking Protonix BID. Placed on Pepcid 40mg daily on 12/14, which she never started. History of Present Illness 75 yo female with multiple medical problems, referred for intermittent nausea, epigastric pain, change in bms, frequent loose stools, no blood, no melena; long h/o abdominal complaints and admission in November for similar symptoms; has known incisional hernia; long h/o GERD on PPI bid with no improvement; no previous EGD, h/o colonoscopy more than 10 years ago; abdominal operations significant for cholecystectomy and ovarian cystectomy; on baby asa daily, no NSAIDs, no SBE prophylaxis; no fmhx of GI malignancy or IBD. Review of Systems PHQ Score Initial Depression Screen Score: 0 ROS - Provider Constitutional: no fever, no sweats, no weight loss. Eyes: no glasses, no blurred vision, no visual loss. ENMT: no dentures, no hoarseness, no swallowing difficulties, no hearing loss, no ear infection(s),no nose bleeds. Cardiovascular: normal blood pressure, no chest pain, regular heartbeat, no heart murmur. Respiratory: no shortness of breath, no cough, no asthma, no wheezing. Gastrointestinal: yes nausea, no vomiting, no diarrhea, no constipation, no blood in stool, yes change in bowel habits, yes abdominal pain, no hepatitis. Genitourinary: no kidney stones, no urine infection, no dysuria. Musculoskeletal: no pain, no weakness. Skin: no changing moles, no rash, no skin lumps. Neurologic: no seizures, no epilepsy, no headache. Psychiatric: no emotional or psychiatric problem. Heme/Lymph: no bleeding problems, no anemia, no blood clots, no transfusions. Allergy/Immunologic: no swollen lymph nodes/glands, no IV drug abuse. Other: Additional ROS info: Except as noted in the above Review of Systems and in the History of Present Illness, all other systems have been reviewed and are negative or noncontributory. Physical Exam Vitals & Measurements T: 36.3 ?C(Temporal Artery) HR: 80(Peripheral) RR: 16 BP: 156/82 HT: 162.56 cm HT: 162.6 cm WT: 88.3 kg WT: 88.3 kg BMI: 33.41 HEENT: normal conjunctiva, sclera clear, no scleral icterus, EOM intact, PERRLA, oral mucosa moist without lesions. Neck: trachea midline, no mass, symmetric, no thyromegaly or nodules, no adenopathy Respiratory: lungs CTA, respirations non labored. Cardiovascular: regular rate and rhythm, no murmur, no pedal edema or varicosities. Gastrointestinal: obese, soft, non distended, mild tenderness, epigastrium, no masses; 2 cm incisional hernia epigastrium, reduced; diastasis recti yes, no hepatosplenomegaly; normal bs Lymphatic: no cervical adenopathy, Musculoskeletal: normal gait, digits and nails without infection, nodes, cyanosis, clubbing. Skin: no rashes, no lesions, no ulcers, no subcutaneous nodules, induration. Psychiatric/Neuro: oriented to time, place, person, judgement normal, affect appropriate for age, insight intact, no focal deficits. Tests: labs reviewed, x-rays reviewed, review of old records completed, Discussed surgical options, risks, and possible complications with patient. Assessment/Plan 1. Epigastric pain (R10.13: Epigastric pain) plan EGD and colonoscopy under anesthesia, informed consent obtained. 2. Nausea (R11.0: Nausea) see # 1 3. Change in bowel habits (R19.4: Change in bowel habit) see # 1 4. GERD (gastroesophageal reflux disease) (K21.9: Gastro-esophageal reflux disease without esophagitis) see # 1 5. Incisional hernia (K43.2: Incisional hernia without obstruction or gangrene) see # 1 Follow-up No qualifying data available Problem List/Past Medical History Ongoing BMI 33.0-33.9,adult Bradycardia CAD (coronary artery disease) Change in bowel habits Chronic constipation Chronic diastolic heart failure CKD (chronic kidney disease) CVA (cerebrovascular accident) Diabetes Dyslipidemia Epigastric pain Fibromyalgia SCOTTY (generalized anxiety disorder) GERD (gastroesophageal reflux disease) HTN (hypertension) Hyperkalemia Incisional hernia Insomnia Major depressive disorder Nausea Overflow incontinence Pulmonary HTN Seasonal allergic rhinitis Vitamin D deficiency Historical No qualifying data Procedure/Surgical History Biopsy of breast, CABG x 2 - Coronary artery bypass grafts x 2, Cardiac catheterization, Cholecystectomy, Hysterectomy, Ovarian cystectomy. Medications acetaminophen-hydrocodone 325 mg-5 mg oral tablet, 1 tab(s), Oral, BID alprazolam 0.5 mg Tab, 0.5 mg= 1 tab(s), Oral, TID, PRN aspirin 81 mg Oral EC Tab, 81 mg= 1 tab(s), Oral, Daily atorvastatin 40 mg Tab, 40 mg= 1 tab(s), Oral, Daily Flonase 0.05 mg/inh nasa (more content not included)...[facility] HospitalComment on above:Result Comment: Electronically Signed By: ANGEL BARRIOS, Neel Gamboa\Date and Time Signed: 01/18/21 20:28 ESTDischarge summary Author Rusty Amor [facility] June 25, 2021 1:30pm Note Date/Time June 25, 2021 1:30pm [facility] [address] [place] [address] Discharge Summary Signed Patient: Elif Turner MR#: [id number] : 1945 Acct:[id number] Age/Sex: 75 / F Adm Date: 2 Loc: Room: [address] [place] [address]: Rusty Amor MD Copies to: MD Amador Winston MD~ Providers Date of Discharge: 06/25/21 Discharging Provider: Rusty Amor Primary Care Provider: Amador Abdalla Consults: 06/24/21 04:49 Consult to Cardiology Routine Consult to Occupational Therapy Routine Consult to Physical Therapy Routine Discharge Diagnosis Final Diagnosis Final Discharge Diagnosis: Non-STEMI with revascularization of RCA during this admission Chronic medical comorbidities include Diabetes mellitus type 2 Obesity class II BMI 35 CKD stage III Dyslipidemia Cerebrovascular disease and history of remote stroke GERD Hypertension Summary Hospital Course Hospital course: Patient is a very pleasant 75-year-old female,With known history of CAD, as wellas other medical comorbidities noted above. She presented to the emergency department of [facility] on June 24, complaining of chest discomfort. Her troponins were abnormal. She was transferred to our hospital with a diagnosis of non-STEMI. [facility], where she underwent coronary angiogram, indicating proximal RCA stent and chronic occlusion in the mid distal segment. This was sent stented. There were no postoperative complications. The patient was discharged home in stable condition the following day. Her medical therapy was optimized as noted below. She will be on dual antiplatelet therapy. Beta-tung was added. Her diabetes regimen was changedby substitution of a GLP-1 agent instead of glipizide. Statin therapy was maximized. She will be followed by her PCP and cardiology. Time Spent with Patient Time spent providing/coordinating discharge services (# min): 35 Surgeries and Procedures Operation Date: 06/24/21 12:10 Actual Procedures p CL Iliac/Fem w/LHC - W Domingo Bolivar DO s CL PCI 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 CONTR[employer]LLER 1st Vessel RCA BAMBI - W Domingo Readdon, DO Diagnostic Studies Completed and Pending Studies Pending studies at discharge: 06/24/21 04:49 XR chest 1V portable Stat 06/26/21 05:00 Prothrombin Time INR IN AM Complete Blood Count Auto Diff IN AM 06/27/21 05:00 Prothrombin Time INR IN AM Complete Blood Count Auto Diff IN AM 06/28/21 05:00 Prothrombin Time INR IN AM Complete Blood Count Auto Diff IN AM 06/29/21 05:00 Prothrombin Time INR IN AM Complete Blood Count Auto Diff IN AM 06/30/21 05:00 Complete Blood Count Auto Diff IN AM Labs on day of discharge: 06/25/21 12:02: POC Glucose 227 06/25/21 07:51: POC Glucose 184 06/25/21 05:24: Troponin I High Sens 735 H* 06/25/21 05:24: PT 11.5, INR 1.0, APTT 24.8 L 06/25/21 05:24: Corrected WBC 10.5, Uncorrected WBC Count 10.5, RBC 3.55 L, Hgb 11.1 L, Hct 32.7 L, MCV 92.1, MCH 31.3, MCHC 34.0, RDW 12.7, Plt Count 205, MPV 9.0, Neut % (Auto) 90.9, Lymph % (Auto) 4.3, Clayton % (Auto) 4.5, Eos % (Auto) 0.0, Baso % (Auto) 0.3, Neut # (Auto) 9.6 H, Lymph # (Auto) 0.4 L, Clayton # (Auto)0.5, Eos # (Auto) 0.0, Baso # (Auto) 0.0, Nucleated RBC % (auto) 0.0 06/24/21 22:09: POC Glucose 294 06/24/21 17:13: POC Glucose 322 Exam Physical Exam Vital Signs: Temp Pulse Resp BP Pulse Ox 98.1 F 64 18 127/72 96 06/25/21 12:15 06/25/21 12:15 06/25/21 12:15 06/25/21 12:15 06/25/21 12:15 Discharge Plan Discharge Plan Patient Disposition: Home Health Services Activity: No Activity Restriction Diet: Diabetic, Low-Sodium and Low-Cholesterol Additional Instructions: Check sugars daily and check blood pressure daily, ideally in the arm. Record values and take the record to your doctor with every visit. DISCHARGE INSTRUCTIONS FOR ANGIOPLASTY/CORONARY/PERIPHERAL/STENT IMPLANT FOR ADULT ANTICOAGULATION -Since the greatest risk of a blood clot forming with the stent occurs in the first 2-3 weeks after implantation, you will need to take anticoagulants for at least 12-18 months. ANTICOAGULATION MEDICATION Aspirin 81mg once a day, Ticagrelor (Brilinta) 90mg twice a day STATIN MEDICATION Atorvastatin (Lipitor) 80 mg Drug-Eluting Stent (BAMBI) DO NOT discontinue Brilinta/Aspirin during the first few months regardless of what you are advised by your family doctor or pharmacist, without first calling the java sdet who implanted the stent. If you require pain relief during this time, please take only ACETAMINOPHEN (TYLENOL)- NO additional aspirin or ibuprofen. DISCHARGE ACTIVITIES ARE FOLLOWS: First week after discharge: -Take it easy at home, no strenuous activity. -Do not lift or pull objects over 10-15 pounds, including children, and groceries for four weeks. If puncture site is at wrist do NOT lift more than three pounds for three days. - May walk up stairs. -May shower. -No excessive scrubbing of the affected site (groin). -May ride in car. -May resume sexual intercourse after 1-2 weeks. -No MRI for 12 days. -May drive in 4-7 days. -If puncture site is at the wrist do not manipulate the wrist for 24 hours, and no soaking wrist for three days. Second Week: -May take a bath -May start walking 3 times a week for 15-20 minutes at a leisurely pace. You should be able to carry on a conversation comfortably without feeling winded. -No strenuous activity as in jogging, running, weight lifting, stair steppers, etc. until the java sdet approves these activities. Check with the java sdet on your first follow-up visit. CALL YOUR PHYSICIAN at [phone]: -If bleeding should occur from the catheter insertion site- apply pressure to the site then immediately call us. -Report any fever, redness, drainage, increased swelling, or firmness at the catheter insertion site. Some bruising or slight swelling may be present at thetime of discharge. -Should arm or leg become cold, numb, white, or blue, contact the java sdet immediately. -IF you should experience episodes of angina, e.g. chest discomfort, heaviness, tightness, pressure burning with or without radiation to the neck, jaw, arms or back- use 1 Nitrostat tablet under your tongue every 5-10 minutes and up to three tablets. IF NO RELIEF, CALL 911 or GO TO THE NEAREST EMERGENCY ROOM. -Please notify our office if you have recurrent angina. -[Cardiac Rehab Education Provided. Participation in the Cardiopulmonary Rehabilitation program is recommended. Please call Central Scheduling at [phone] to schedule your appointment.] The attending java sdet or [facility] nurse clinician should provide you with specific instructions regarding activity, diet, medications, and further follow up for you. Follow the medication instructions provided on your discharge. If the dosages and instructions on this sheet differ from the dosage and instructions on the bottle, follow the instructions on the bottle. [facility] is not responsible for incorrect prescription information provided by thepatient during their visit. Do not stop your medications without consulting your health care provider. Please take the list with you to your next doctor's appointment. Home Health to manage care: - Full code - PT/OT eval and treat - Routine vital signs Instructions: Coronary Angioplasty (DC), Liraglutide, Angina (DC), Drug ElutingStents Prescriptions: New Brilinta 90 mg Tablet 90 mg PO BID 90 Days Qty: 180 RF: 3 atorvastatin 80 mg Tablet 80 mg PO HS 30 Days Qty: 30 RF: 12 carvedilol 12.5 mg Tablet 12.5 mg PO BID.WITH.MEALS 30 Days Qty: 60 RF: 12 nitroglycerin 0.4 mg Tablet, Sublingual 0.4 mg sublingual Q5M PRN (Reason: Chest Pain) 30 Days Qty: 25 RF: 3 Victoza 3-Dae 0.6 mg/0.1 mL (18 mg/3 mL) pen injector 1.2 mg subcut DAILY 30 Days Qty: 6 RF: 11 Continued losartan 50 mg tablet 50 mg PO DAILY RF: 0 furosemide 40 mg tablet 40 mg PO DAILY RF: 0 hydrocodone-acetaminophen 5-325 mg tablet 1 tab PO Q8H PRN (Reason: Pain) RF: 0 alprazolam 0.5 mg tablet 0.5 mg PO TID PRN (Reason: Anxiety) RF: 0 temazepam 30 mg capsule 30 mg PO HS RF: 0 amlodipine 10 mg tablet 10 mg PO DAILY RF: 0 pantoprazole 40 mg tablet,delayed release (DR/EC) 40 mg PO BID RF: 0 montelukast 10 mg tablet 10 mg PO HS RF: 0 hydralazine 50 mg tablet 50 mg PO BID RF: 0 aspirin 81 mg Tablet 81 mg PO DAILY RF: 0 paroxetine HCl 40 mg tablet 40 mg PO DAILY RF: 0 ondansetron 4 mg tablet,disintegrating 4 mg PO Q6H PRN (Reason: Nausea) RF: 0 metformin 500 mg tablet extended release 24 hr 500 mg PO BID RF: 0 bupropion HCl 150 mg tablet extended release 24 hr 150 mg PO DAILY RF: 0 fluticasone furoate 50 mcg/actuation Blister With Device 2 inh INHALATION DAILY RF: 0 Discontinued atorvastatin 40 mg tablet 40 mg PO HS RF: 0 glipizide 10 mg tablet 10 mg PO DAILY RF: 0 Other Ambulatory Orders: Initiate Home Health (Routine) Timeframe: 1 Day Location: Determined by Patient Ordered By: Rusty Amor PT/OT/SP OutPatient Referral (Routine) Timeframe: 1 Day Location: Determined by Patient Ordered By: Rusty Amor Follow Up: Amador Abdalla MD [Primary Care Provider] - (Office is currently closed. Call office on Sunday to schedule follow-up with your Primary Care Provider in 3-5 days. ) Carolina Lucio MD [Referring] - (Call office on Sunday to schedule follow- up with your Fittings T[employer]ener. ) Documented By: Rusty Amor MD 06/25/21 1326 Signed By: <Electronically signed by Rusty Amor MD> 06/25/21 1330 [facility] Work Phone: Evaluation note* Diagnosis Chest pain, unspecified type- Primary PND (paroxysmal nocturnal dyspnea) Other dyspnea and respiratory abnormality [facility] Diagnosis Onset Date Resolution Status CAD (coronary artery disease) acute Chronic kidney disease acute Depression acute Diabetes acute Fibromyalgia acute GERD (gastroesophageal reflux disease) acute HTN (hypertension) acute NSTEMI (non-ST elevated myocardial infarction) acute [facility] Work Phone: Hospital Discharge instructionsAmbulatory Orders* Initiate Home Health Time Frame: 1 Day, Location: Determined By Patient * PT/OT/SP OutPatient Referral Time Frame: 1 Day, Location: Determined By Patient Additional Instructions Check sugars daily and check blood pressure daily, ideally in the arm. Record values and take the record to your doctor with every visit. DISCHARGE INSTRUCTIONS FOR ANGIOPLASTY/CORONARY/PERIPHERAL/STENT IMPLANT FOR ADULT ANTICOAGULATION -Since the greatest risk of a blood clot forming with the stent occurs in the first 2-3 weeks after implantation, you will need to take anticoagulants for at least 12-18 months. ANTICOAGULATION MEDICATION Aspirin 81mg once a day, Ticagrelor (Brilinta) 90mg twice a day STATIN MEDICATION Atorvastatin (Lipitor) 80 mg Drug-Eluting Stent (BAMBI) DO NOT discontinue Brilinta/Aspirin during the first few months regardless of what you are advised by your family doctor or pharmacist, without first calling the java sdet who implanted the stent. If you require pain relief during this time, please take only ACETAMINOPHEN (TYLENOL)- NO additional aspirin or ibuprofen. DISCHARGE ACTIVITIES ARE FOLLOWS: First week after discharge: -Take it easy at home, no strenuous activity. -Do not lift or pull objects over 10-15 pounds, including children, and groceries for four weeks. If puncture site is at wrist do NOT lift more than three pounds for three days. - May walk up stairs. -May shower. -No excessive scrubbing of the affected site (groin). -May ride in car. -May resume sexual intercourse after 1-2 weeks. -No MRI for 12 days. -May drive in 4-7 days. -If puncture site is at the wrist do not manipulate the wrist for 24 hours, and no soaking wrist for three days. Second Week: -May take a bath -May start walking 3 times a week for 15-20 minutes at a leisurely pace. You should be able to carry on a conversation comfortably without feeling winded. -No strenuous activity as in jogging, running, weight lifting, stair steppers, etc. until the java sdet approves these activities. Check with the java sdet on your first follow-up visit. CALL YOUR PHYSICIAN at [phone]: -If bleeding should occur from the catheter insertion site- apply pressure to the site then immediately call us. -Report any fever, redness, drainage, increased swelling, or firmness at the catheter insertion site. Some bruising or slight swelling may be present at the time of discharge. -Should arm or leg become cold, numb, white, or blue, contact the java sdet immediately. -IF you should experience episodes of angina, e.g. chest discomfort, heaviness, tightness, pressure burning with or without radiation to the neck, jaw, arms or back- use 1 Nitrostat tablet under your tongue every 5-10 minutes and up to three tablets. IF NO RELIEF, CALL 911 or GO TO THE NEAREST EMERGENCY ROOM. -Please notify our office if you have recurrent angina. -[Cardiac Rehab Education Provided. Participation in the Cardiopulmonary Rehabilitation program is recommended. Please call Central Scheduling at [phone] to schedule your appointment.] The attending java sdet or [facility] nurse clinician should provide you with specific instructions regarding activity, diet, medications, and further follow up for you. Follow the medication instructions provided on your discharge. If the dosages and instructions on this sheet differ from the dosage and instructions on the bottle, follow the instructions on the bottle. [facility] is not responsible for incorrect prescription information provided by the patient during their visit. Do not stop your medications without consulting your health care provider. Please take the list with you to your next doctor's appointment. Home Health to manage care: - Full code - PT/OT eval and treat - [facility] Work [facility]: Summary Purpose Family History No Family History Records Found Relationship Condition Age at Onset Recorded Date/T tamiko Not Specified Diabetes mellitus Unknown Pulmonary emphysema Unknown father Cerebrovascular accident (CVA) Unknown Advance Directives No Advanced Directives Records Found Advance Directive Response Recorded Date/ Time Advance Directives No June 24, 2021 1:18am Chief Complaint and Reason for Visit Chief Complaint Non Stemi Reason for Visit CAD (coronary artery disease) Chronic kidney disease Depression Diabetes Fibromyalgia GERD (gastroesophageal reflux disease) HTN (hypertension) NSTEMI (non-ST elevated myocardial infarction) Additional Source Comments INFORMATION SOURCE (unrecogn ized section and content) DATE CREATED AUTHOR 09/19/2017 [facility] DATE CREATED AUTHOR AUTHOR'S ORGANIZ ATION 11/23/2019 [facility] DATE CREATED AUTHOR AUTHOR'S ORGANIZ ATION 05/07/2021 [facility] DATE CREATED AUTHOR AUTHOR'S ORGANIZ ATION 07/30/2021 [facility] DATE CREATED AUTHOR AUTHOR'S ORGANIZ ATION 03/25/2022 [facility] DATE CREATED AUTHOR AUTHOR'S ORGANIZ ATION 07/05/2022 [facility] DATE CREATED AUTHOR AUTHOR'S ORGANIZ ATION 03/05/2023 [facility] DATE CREATED AUTHOR AUTHOR'S ORGANIZ ATION 04/27/2023 [facility] EPIC Reason for Visit (unrecogniz ed section and content) Reason Comments Chest symptoms/complaints Care Teams (unrecognized sec tion and content) Team Status: Inactive Member Role Status Dates Amador Abdalla MD Primary Care Provider Active Xander Ortiz MD Admit Provider Active Elba Pittman RN Other Provider Active Gen Bolivar DO Other Provider Active Wil Domínguez MD Other Provider Active Zafar Luu MD Other Provider Active Isabel Beckwith MD Other Provider Active Rufus Sauceda MD Other Provider Active Sandra Kaur APRN Other Provider Active Latosha Figueroa MD Other Provider Active Dinora Haynes MD Other Provider Active Rahul Hi MD Other Provider Active Rusty Amor MD Attending Provider Active Team Status: Active Member Role Status Dates Amador Abdalla MD Primary Care Provider Active FOR RECORDS PERTAINING TO PATIENTS WHO ARE OR HAVE BEEN ENROLLED IN A CHEMICAL DEPENDENCY/SUBSTANCEABUSE PROGRAM, SOME INFORMATION MAY BE OMITTED. This clinical summary was aggregated from multiple sources. Caution should be exercised in using it in the provision of clinical care. This summary normalizes information from multiple sources, and as a consequence, information in this document may materially change the coding, format and clinical context of patient data. In addition, data may be omitted in some cases. CLINICAL DECISIONS SHOULD BE BASED ON THE PRIMARY CLINICAL RECORDS. [employer] provides no warranty or guarantee of the accuracy or completeness of information in this document.
[2023-08-03 15:05] LABS: Estimated Average Glucose 189 mg/dL; Glycohemoglobin A1C 8.2 % (4.5-6.2)
== END 2023-08-03 13:46 | disposition home or self-care (01) ==
LOC: LAB 13:54
PROVIDERS: PCP Family Medicine; Visit Provider Family Medicine
DX: E11.65 Type 2 diabetes mellitus with hyperglycemia (principal)
CPT/HCPCS: 36415; 82043; 83036

== ENCOUNTER 2023-11-18 09:05 | Observation (INO) | payer MEDICARE, MEDICAID, SELFPAY ==
[2023-11-18] VITALS (29 sets, daily range): BP systolic 156–260; BP diastolic 63–108; PULSE 76–135; TEMP 36.7–37.3; O2SAT 93–98; BMI 32.6; BMI 32.5
--- OUTSIDE RECORDS SUMMARY | 2023-11-18 09:14 | XMS_ITS | CCD ---
Author Organization [facility] Inform ion Partnership [facility] Care Team Providers Care Customer Care Manager Name Role Phone CHIDI MELLO Unavailable Unavailable SVEN WILKINS Unavailable Unava ilable KELLI HANKINS Admitting Unavailable KELLI HANKINS Attending Unavailable AMADOR ABDALLA Primary Care Unavailable CHIDI LEWIS Referring Unavailable Unavailable Primary Care Provider Unavailromie e MD Amador Abdalla Primary Care Provider MD Xander Hammer Admit Provider SHAHNAZ Pittman Other Provider Unavailable DO Gen Bolivar Other Provider [phone] MD Wil Domínguez Other Provider MD Zafar Luu Other Provider MD Isabel Beckwith Other Provider [phone] MD Rufus Sauceda Other Provider ARIEL Resendiz [...] Primary Care Unavailable POLICARO, NASRIN Consulting Unavailable OVITTALFREDO Attending Unavailable MOUKACAROLINA FELICIANO Attending Unavailable CHRISTOPHER GALICIA Attending Unavailable NADERER, AMADOR Attending Unavailable AMAYA WILKINS Attending Unavailable NADERER, AMADOR Attending Unavailable Allergies Allergy Classification Reported Allergen(s) Allergy Type Date of Onset Reaction(s) Facility Contrast Media (1 source) Contrast media; Translations: [DYE] Substance Allergy 06-03-19 [facility] Repository cyclobenzaprine (1 source) cyclobenzaprine; Translations: [CYCLOBENZAPRINE] Drug Allergy 12-12-19 13 [facility] Repository Doxycycline (1 source) Doxycycline; Translations: [DOXYCYCLINE] Drug Allergy 12-22-19 [facility] Repository exenatide (1 source) exenatide; Translations: [EXENATIDE] Drug Allergy 12-28-19 13 [facility] Repository Lincosamides (antibiotic) (1 source) Clindamycin; Translations: [CLINDAMYCIN] Drug Allergy 05-27-19 [facility] Repository Opioid Agonists (1 source) Codeine; Translations: [CODEINE] Drug Allergy 12-28-19 [facility] Repository Penicillins (antibiotic) (1 source) Penicillins; Translations: [PENICILLINS] Drug Allergy 12-12-19 13 [facility] Repository Prochlorperazine (1 source) Prochlorperazine; Translations: [PROCHLORPERAZINE] Drug Allergy 12-12-19 13 [facility] Repository Serotonin Reuptake Inhibitors (SSRIs) (1 source) traZODone; Translations: [TRAZODONE] Drug Allergy 12-19-19 [facility] Repository Sucralfate (1 source) Sucralfate; Translations: [SUCRALFATE] Drug Allergy 12-22-19 [facility] Repository Ticagrelor (1 source) Ticagrelor; Translations: [TICAGRELOR] Drug Allergy 06-03-19 [facility] Repository Unclassified (1 source) OTHER; Translations: [OTHER] Propensity to adverse reactions (disorder) 12-12-19 13 [facility] Repository (4 sources) Clindamycin Drug Allergy 04-05-19 16 Difficulty Swallowing [facility] Repository (1 source) Codeine Drug Allergy 12-31-19 09 [facility] Repository (1 source) cyclobenzaprine Drug Allergy 12-31-19 09 [facility] Repository (3 sources) exenatide Drug Allergy 08-26-19 17 [facility] Repository (3 sources) Penicillins Drug allergy (disorder) 12-31-19 09 Itching [facility] Repository (1 source) Prochlorperazine Drug Allergy 12-31-19 09 [facility] Repository (2 sources) Iodinated Contrast Media - IV Dye Drug allergy (disorder) 12-31-19 09 [facility] Repository (1 source) trival; Translations: [trival] Propensity to adverse reactions (disorder) 12-17-19 13 [facility] Repository (4 sources) Amoxicillin; Translations: [amoxicillin] Drug Allergy 06-25-19 Unknown Reaction [facility] (4 sources) cyclobenzaprine; Translations: [cyclobenzaprine] Drug Allergy 06-25-19 Itching [facility] (5 sources) Doxycycline; Translations: [doxycycline] Drug Allergy 06-25-19 Unknown Reaction [facility] (4 sources) exenatide; Translations: [exenatide] Drug Allergy 06-25-19 Rash [facility] (4 sources) Prochlorperazine; Translations: [prochlorperazine] Drug Allergy 05-06-20 22 Cramping of the Muscles [facility] (5 sources) Sucralfate; Translations: [sucralfate] Drug Allergy 06-25-19 Nausea [facility] (6 sources) traZODone; Translations: [trazodone] Drug Allergy 06-25-19 22 Nausea [facility] (3 sources) Iodinated Contrast Media; Translations: [Iodinated Contrast Media] Allergy to substance 02-07-20 14 Itching [facility] (2 sources) Clindamycin; Translations: [clindamycin] [facility] (2 sources) Penicillins; Translations: [Penicillins] Allergy to drug (finding) [facility] Work Phone: (1 source) Clindamycin Drug Allergy 06-25-19 [facility] Repository (1 source) Penicillins Drug allergy (disorder) 06-25-19 [facility] Repository (1 source) Clindamycin Drug Allergy [facility] Repository (1 source) cyclobenzaprine Drug Allergy [facility] Repository (1 source) Levamisole Drug Allergy 12-03-19 21 [facility] Repository (1 source) liraglutide Drug Allergy 07-16-19 22 [facility] Repository (1 source) Prochlorperazine Drug Allergy [facility] Repository (2 sources) Trivora (28) Drug allergy (disorder) [facility] Repository (1 source) Misc-Drug Drug allergy (disorder) [facility] Repository Medications Current Medications Medication Drug Class(es) [...] Active 0.5 MG PO Three times daily May 6th, 2022 4:16am amLODIPine 10 mg oral tablet (1 [...] Atorvastatin Active 80 MG PO Bedtime 30 30 June 24, 2021 4:10pm Start: 06-24-2021 [...] 06-24-2021 Nitroglycerin Active 0.4 MG SUBLINGUAL Q5M June 24, 2021 4:10pm Problems Active Problems [...] Coronary arteriosclerosis; Translations: [Atherosclerotic heart disease of [place] coronary artery without angina pectoris] Onset: 2 06-24-2021 Chronic Coronary atherosclerosis and other heart disease (5 sources) Patient post percutaneous transluminal coronary angioplasty; Translations: [Percutaneous transluminal coronary angioplasty status] Onset: 3 Episodic Diabetes mellitus with complications (7 sources) Type 2 diabetes mellitus with diabetic chronic kidney disease; Translations: [Type 2 diabetes mellitus with hyperglycemia] Onset: 2 Chronic Diabetes mellitus without complication (4 sources) Diabetes mellitus; Translations: [Type 2 diabetes mellitus without complications] Onset: 2 06-24-2021 Chronic Disorders of lipid metabolism (4 sources) Pure hypercholesterolemia, unspecified; Translations: [Hyperlipidemia, unspecified] [...] 3 Chronic Other aftercare (1 source) 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; Translations: [OTH RESTAURANT HOSTESS CURRENT DRUG THERAPY] Onset: 3 Episodic Other aftercare (1 source) long term care phlebotomist (current) use of aspirin; Translations: [RESTAURANT HOSTESS CURRENT USE OF ASPIRIN] Onset: 3 Episodic [...] Translations: [UNSPECIFIED ABDOMINAL PAIN] Onset: 08-31-2021 Episodic Nausea and vomiting (8 sources) Nausea with vomiting, unspecified; Translations: [Nausea] Onset: 08-16-2021 Episodic Other aftercare (1 source) [facility] (current) use of oral hypoglycemic drugs; Translations: [ASSISTED USE ORAL HYPOGLYCEMIC DX] Onset: 08-18-2021 Episodic [...] Test Name Value Interpretation Reference Range Facility Office Visiton 08-20-2023 Follow-up visit [id number] Irma Turner 1945 F Date Provider Department Center 08/20/2023 CAROLINA MARCOS CHARLES Arnold Family History Problem Relation Age of Onset Breast cancer Mother Stroke Father Family Status - Relation Status Age at Mother Father Level of Service:43704 AR OFFICE/OUTPATIENT ESTABLISHED MOD MDM 30 MIN Normal [facility] 36on 03-05-2023 36 Please let her know her recent carotid ultrasound showed things were stable. Plan for a follow-up ultrasound in 1 year. Follow-up in 6 months. Thanks! Normal [facility] Telephoneon 03-05-2023 Telephone [id number] Irma Turner 1945 F Date Provider Department Center 03/05/2023 CHRISTOPHER SHIN . Family History Problem Relation Age of Onset Breast cancer Mother Stroke Father Family Status - Relation Status Age at Mother Father Normal [facility] Office Visiton 01-31-2023 Follow-up visit [id number] Irma Turner 1945 Provider Department Center 01/31/2023 CHRISTOPHER SHIN CHARLES [facility] Family History Problem Relation Age of Onset Breast cancer Mother Stroke Father Family Status - Relation Status Age at Mother Father Level of Service:68827 AR OFFICE/OUTPATIENT ESTABLISHED MOD MDM 30-39 MIN Reason for Visit and Comments: Congestive Heart Failure [127] Hypertension [395750] Carotid Artery Disease [453] Normal [facility] Consulton 08-29-2022 Consult [id number] Irma Turner 1945 Provider Department Center 08/29/2022 ALFREDO SAMANIEGO [facility] SURG [place] Family History Problem Relation Age of Onset Breast cancer Mother Stroke Father Family Status - Relation Status Age at Mother Father Level of Service:47256 AR OFFICE/OUTPATIENT NEW MODERATE MDM 45-59 MINUTES Normal [facility] MRI BRAIN WO W CONon 023 MRI [...] LISSETTE VILLALOBOS Date: 2022-07-04 09:08 Normal [facility] CREATININEon 07-03-2022 Creatinine [Mass/Vol] 1.87 mg/dL Critically high 0.55-1.02 [facility] Comment on above: Performed By: #### U ARMICR #### [facility] Laboratory [address] [place] [address] Dr. Gasper Garber EGFR-AF [facility] 32 mL/min/1.73m2 Critically low >=60 [facility] Comment on above: Performed By: #### U ARMICR #### [facility] Laboratory [address] [place] [address] Dr. Gasper Garber EGFR-NON AF [facility] 26 mL/min/1.73m2 Critically low >=60 [facility] Comment on above: Performed By: #### U ARMICR #### [facility] Laboratory [address] [place] [address] Dr. Gasper Garber UA (CLEAN/CATCH) MICROSCOPIC IF INDICATEon 05-26-2022 Bilirubin Ql (U) Negative Normal NEGATIVE [facility] Comment on above: Performed By: #### U ARMICR #### [facility] Laboratory [address] [place] [address] Dr. Gasper Garber Clarity (U) CLEAR Normal CLEAR [facility] Comment on above: Performed By: #### U ARMICR #### [facility] Laboratory [address] [place] [address] Dr. Gasper Garber Color (U) LT. YELLOW Normal YELLOW [facility] Comment on above: Performed By: #### U ARMICR #### [facility] Laboratory [address] [place] [address] Dr. Gasper Garber Glucose Ql (U) Negative Normal NEGATIVE [facility] Comment on above: Performed By: #### U ARMICR #### [facility] Laboratory [address] [place] [address] Dr. Gasper Garber Hemoglobin Ql (U) Negative Normal NEGATIVE [facility] Comment on above: Performed By: #### U ARMICR #### [facility] Laboratory [address] [address] [address] Gasper Garber Ketones Ql (U) Negative Normal NEGATIVE [facility] Comment on above: Performed By: #### U ARMICR #### [facility] Laboratory [address] [place] [address] Dr. Gasper Garber LEUKOCYTES Negative Normal NEGATIVE [facility] Comment on above: Performed By: #### U ARMICR #### [facility] Laboratory [address] [address] [address] Gasper Garber Nitrite Ql (U) Negative Normal NEGATIVE [facility] Comment on above: Performed By: #### U ARMICR #### [facility] Laboratory [address] [place] [address] Dr. Gasper Garber pH (U) 6.5 [pH] Normal 5-9 [facility] Comment on above: Performed By: #### U ARMICR #### [facility] Laboratory [address] [place] [address] Dr. Gasper Garber SPEC GRAVITY 1.010 Normal 1.005-<=1.[address] [place] [address] Comment on above: Performed By: #### U ARMICR #### [facility] Laboratory [address] [place] [address] Dr. Gasper Garber UA PROTEIN TRACE Normal NEGATIVE/ TRACE [facility] Comment on above: Performed By: #### U ARMICR #### [facility] Laboratory [address] [place] [address] Dr. Gasper Garber UR MICRO IND NOT INDICATED Normal [facility] Comment on above: Performed By: #### U ARMICR #### [facility] Laboratory [address] [place] [address] Dr. Gasper Garber Urobilinogen Qn (U) 0.2 {Kaushik'U}/dL Normal 0.2 - 1. 0 [facility] Comment on above: Performed By: #### U ARMICR #### [facility] Laboratory [address] [place] [address] Dr. Gasper Garber CULTURE URINEon 05-16-2022 CULTURE [...] S F Nitrofurantoin <=16 S F Normal [facility] Comment on above: Performed By: #### U RCX #### [facility] Laboratory [address] [place] [address] Dr. Gasper Garber MAGNESIUMon 05-16-2022 Magnesium [Mass/Vol] 2.0 mg/dL Normal 1.8-2.4 [facility] Comment on above: Performed By: #### TONI MALDONADORO #### [facility] [address] [place] [address] Dr. Gasper Garber CBC AUTO DIFFon 05-15-2022 BASO # 0.0 103/ul Normal 0.0-0.1 [facility] Comment on above: Performed By: #### JOANNE MALDONADOICRO #### [facility] Laboratory [address] [place] [address] Dr. Gasper Garber Basophils/100 WBC (Bld) 0.5 % Normal 0.2-2.0 [facility] Comment on above: Performed By: #### Bernice HERNDON UMICRO #### [facility] Laboratory [address] [place] [address] Dr. Gasper Garber EO # 0.2 103/ul Normal 0.0-0.7 [facility] Comment on above: Performed By: #### Bernice HERNDON UMICRO #### [facility] Laboratory [address] [place] [address] Dr. Gasper Garber Eosinophils/100 WBC (Bld) 1.8 % Normal 0.9-7.0 [facility] Comment on above: Performed By: #### Bernice HERNDON UMICRO #### [facility] [address] [place] [address] Dr. Gasper Garber Erythrocyte distribution width (RBC) [Ratio] 12.5 % Normal 11.0-15.0 [facility] Comment on above: Performed By: #### BERNIE MALDONADO #### [facility] [address] [place] [address] Dr. Gasper Garber Hematocrit (Bld) [Volume fraction] 36.1 % Normal 36.0-48.0 [facility] Comment on above: Performed By: #### TONI MALDONADORO #### [facility] [address] [place] [address] Dr. Gasper Garber Hemoglobin (Bld) [Mass/Vol] 11.8 g/dL Critically low 12.0-16.0 [facility] Comment on above: Performed By: #### BERNIE MALDONADO #### [facility] [address] [place] [address] Dr. Gasper Garber IG # 0.02 10e3/ul Normal 0.00-0.03 [facility] Comment on above: Performed By: #### TONI MALDONADORO #### [facility] [address] [place] [address] Dr. Gasper Garber IG % 0.2 % Normal 0.0-0.5 [facility] Comment on above: Performed By: #### TONI MALDONADORO #### [facility] [address] [place] [address] Dr. Gasper Garber LYMPH # 1.2 103/ul Normal 1.2-3.8 [facility] Comment on above: Performed By: #### TONI MALDONADORO #### [facility] [address] [place] [address] Dr. Gasper Garber Lymphocytes/100 WBC (Bld) 14.2 % Critically low 20.5-60.0 [facility] Comment on above: Performed By: #### TONI MALDONADORO #### [facility] [address] [place] [address] Dr. Gasper Garber MANUAL DIFF REQ NO Normal [facility] Comment on above: Performed By: #### TONI MALDONADORO #### [facility] [address] [place] [address] Dr. Gasper Garber MCH (RBC) [Entitic mass] 30.6 pg Normal 26.7-34.0 [facility] Comment on above: Performed By: #### E YANICK, UMICRO #### [facility] [address] [place] [address] Dr. Gasper Garber MCHC (RBC) [Mass/Vol] 32.7 g/dL Normal 29.9-35.2 [facility] Comment on above: Performed By: #### E YANICK, UMICRO #### [facility] [address] [place] [address] Dr. Gasper Garber MCV (RBC) [Entitic vol] 93.8 fL Normal 81.0-99.0 [facility] Comment on above: Performed By: #### E YANICK UMICRO #### [facility] [address] [place] [address] Dr. Gasper Garber MONO # 1.0 103/ul Critically high 0.3-0.8 [facility] Comment on above: Performed By: #### Bernice HERNDON UMICRO #### [facility] [address] [place] [address] Dr. Gasper Garber Monocytes/100 WBC (Bld) 12.3 % Critically high 1.7-12.0 [facility] Comment on above: Performed By: #### Bernice HERNDON, UMICRO #### [facility] [address] [place] [address] Dr. Gasper Garber NEUT # 5.9 103/ul Normal 1.4-6.5 [facility] Comment on above: Performed By: #### E RUCrystal, UMICRO #### [facility] [address] [place] [address] Dr. Gasper Garber Neutrophils/100 WBC (Bld) 71.0 % Normal 43.0-75.0 [facility] Comment on above: Performed By: #### E RUR, UMICRO #### [facility] [address] [place] [address] Dr. Gasper Garber Platelet mean volume (Bld) [Entitic vol] 11.3 fL Normal 9.5-13.5 [facility] Comment on above: Performed By: #### TONI MALDONADORO #### [facility] [address] [place] [address] Dr. Gasper Garber PLT 237 103/ul Normal 150-450 [facility] Comment on above: Performed By: #### TONI MALDONADORO #### [facility] [address] [place] [address] Dr. Gasper Garber RBC 3.85 106/ul Critically low 4.20-5.40 [facility] Comment on above: Performed By: #### TONI MALDONADORO #### [facility] [address] [place] [address] Dr. Gasper Garber WBC 8.4 103/ul Normal 4.0-11.0 [facility] Comment on above: Performed By: #### TONI MALDONADORO #### [facility] [address] [place] [address] Dr. Gasper Garber MAGNESIUMon 05-15-2022 Magnesium [Mass/Vol] 2.0 mg/dL Normal 1.8-2.4 [facility] Comment on above: Performed By: #### TONI MALDONADORO #### [facility] [address] [place] [address] Dr. Gasper Garber PROF 14(COMP METB)on 023 Albumin [Mass/Vol] 3.4 g/dL Normal 3.4-5.0 [facility] Comment on above: Performed By: #### TONI MALDONADORO #### [facility] [address] [place] [address] Dr. Gasper Garber Albumin/Globulin [Mass ratio] 1.0 {ratio} Normal [facility] Comment on above: Performed By: #### Bernice HERNDON UMICRO #### [facility] [address] [place] [address] Dr. Gasper Garber ALP [Catalytic activity/Vol] 70 U/L Normal 46-116 [facility] Comment on above: Performed By: #### Bernice HERNDON UMICRO #### [facility] [address] [place] [address] Dr. Gasper Garber ALT [Catalytic activity/Vol] 23 U/L Normal 14-59 [facility] Comment on above: Performed By: #### Bernice HERNDON UMICRO #### [facility] [address] [place] [address] Dr. Gasper Garber Anion gap [Moles/Vol] 12.2 mmol/L Normal [facility] Comment on above: Performed By: #### Bernice HERNDON UMICRO #### [facility] [address] [place] [address] Dr. Gasper Garber AST [Catalytic activity/Vol] 13 U/L Critically low 15-37 [facility] Comment on above: Performed By: #### Bernice HERNDON UMICRO #### [facility] [address] [place] [address] Dr. Gasper Garber Bilirubin [Mass/Vol] 0.6 mg/dL Normal 0.2-1.0 [facility] Comment on above: Performed By: #### Bernice HERNDON UMICRO #### [facility] [address] [place] [address] Dr. Gasper Garber Calcium [Mass/Vol] 9.6 mg/dL Normal 8.5-10.1 [facility] Comment on above: Performed By: #### Bernice HERNDON UMICRO #### [facility] [address] [place] [address] Dr. Gasper Garber Chloride [Moles/Vol] 106 mmol/L Normal 98-107 [facility] Comment on above: Performed By: #### E YANICK UMICRO #### [facility] [address] [place] [address] Dr. Gasper Garber CO2 [Moles/Vol] 29.0 mmol/L Normal 21.0-32.0 [facility] Comment on above: Performed By: #### E YANICK UMICRO #### [facility] [address] [place] [address] Dr. Gasper Garber Creatinine [Mass/Vol] 1.46 mg/dL Critically high 0.55-1.02 [facility] Comment on above: Performed By: #### BERNIE MALDONADO #### [facility] [address] [place] [address] Dr. Gasper Garber EGFR-AF [facility] 42 mL/min/1.73m2 Critically low >=60 [facility] Comment on above: Performed By: #### TONI MALDONADORO #### [facility] [address] [place] [address] Dr. Gasper Garber EGFR-NON AF [facility] 35 mL/min/1.73m2 Critically low >=60 [facility] Comment on above: Performed By: #### OTNI MALDONADORO #### [facility] [address] [place] [address] Dr. Gasper Garber Globulin (S) [Mass/Vol] 3.3 g/dL Normal [facility] Comment on above: Performed By: #### TONI MALDONADORO #### [facility] [address] [place] [address] Dr. Gasper Garber Glucose [Mass/Vol] 154 mg/dL Critically high 74-106 T [facility] Comment on above: Performed By: #### TONI MALDONADORO #### [facility] [address] [place] [address] Dr. Gasper Garber Potassium [Moles/Vol] 3.2 mmol/L Critically low 3.5-5.1 [facility] Comment on above: Performed By: #### TONI MALDONADORO #### [facility] [address] [place] [address] Dr. Gasper Garber Protein [Mass/Vol] 6.7 g/dL Normal 6.4-8.2 [facility] Comment on above: Performed By: #### TONI MALDONADORO #### [facility] [address] [place] [address] Dr. Gasper Garber Sodium [Moles/Vol] 144 mmol/L Normal 136-145 [facility] Comment on above: Performed By: #### BERNIE MALDONADO #### [facility] [address] [place] [address] Dr. Gasper Garber Urea nitrogen [Mass/Vol] 28.0 mg/dL Critically high 7.0-18.0 [facility] Comment on above: Performed By: #### E TONI HERNDONRO #### [facility] [address] [place] [address] Dr. Gasper Garber Urea nitrogen/Creatinine [Mass ratio] 19.2 mg/mg Normal [facility] Comment on above: Performed By: #### E TONI HERNDONRO #### [facility] [address] [place] [address] Dr. Gasper Gabrer BNPon 05-14-2022 Natriuretic peptide B (Bld) [Mass/Vol] 1231.0 pg/mL Critically high <=900.0 [facility] Comment on above: Performed By: #### L ACT #### [facility] [address] [place] [address] Dr. Gasper Garber CARDIAC SEKOU ADMITon 023 CK [Catalytic activity/Vol] 30 U/L Normal 26-192 [facility] Comment on above: Performed By: #### L ACT #### [facility] [address] [place] [address] Dr. Gasper Garber CK.MB [Mass/Vol] 0.54 ng/mL Normal <=3.60 [facility] Comment on above: Performed By: #### L ACT #### [facility] [address] [place] [address] Dr. Gasper Garber HSTROP 9.8 pg/mL Normal 4.0-51.3 [facility] Comment on above: Result Comment: CUT- OFF POINTS HAVE BEEN ESTABLISHED BASED ON THE FOURTH UNIVERSAL DEFINITIONS OF MYOCARDIAL INFARCTION. THE UPPER REFERENCE LIMIT (URL) OF TROPONIN, DEFINED THE 99TH PERCENTILE OF cTnI DISTRIBUTION IN A REFERENCE POPULATION, HAS BEEN CONFIRMED THE DECISION THRESHOLD FOR PA DIAGNOSIS. Performed By: #### L ACT #### [facility] [address] [place] [address] Dr. Gasper Garber JUSTIN 62 ng/mL Normal 9-82 [facility] Comment on above: Performed By: #### L ACT #### [facility] [address] [place] [address] Dr. Gasper Garber CBC AUTO DIFFon 05-14-2022 BASO # 0.0 103/ul Normal 0.0-0.1 [facility] Comment on above: Performed By: #### U ARMICR #### [facility] [address] [place] [address] Dr. Gasper Garber Basophils/100 WBC (Bld) 0.4 % Normal 0.2-2.0 [facility] Comment on above: Performed By: #### U ARMICR #### [facility] [address] [place] [address] Dr. Gasper Garber EO # 0.2 103/ul Normal 0.0-0.7 [facility] Comment on above: Performed By: #### U ARMICR #### [facility] [address] [place] [address] Dr. Gasper Garber Eosinophils/100 WBC (Bld) 2.4 % Normal 0.9-7.0 [facility] Comment on above: Performed By: #### U ARMICR #### [facility] [address] [place] [address] Dr. Gasper Garebr Erythrocyte distribution width (RBC) [Ratio] 12.7 % Normal 11.0-15.0 [facility] Comment on above: Performed By: #### U ARMICR #### [facility] [address] [place] [address] Dr. Gasper Garber Hematocrit (Bld) [Volume fraction] 36.4 % Normal 36.0-48.0 [facility] Comment on above: Performed By: #### U ARMICR #### [facility] [address] [place] [address] Dr. Gasper Garber Hemoglobin (Bld) [Mass/Vol] 11.7 g/dL Critically low 12.0-16.0 [facility] Comment on above: Performed By: #### U ARMICR #### [facility] [address] [place] [address] Dr. Gasper Garber IG # 0.03 10e3/ul Normal 0.00-0.03 [facility] Comment on above: Performed By: #### U ARMICR #### [facility] [address] [place] [address] Dr. Gasper Garber IG % 0.3 % Normal 0.0-0.5 [facility] Comment on above: Performed By: #### U ARMICR #### [facility] [address] [place] [address] Dr. Gasper Garber LYMPH # 1.9 103/ul Normal 1.2-3.8 [facility] Comment on above: Performed By: #### U ARMICR #### [facility] [address] [place] [address] Dr. Gasper Garber Lymphocytes/100 WBC (Bld) 20.2 % Critically low 20.5-60.0 [facility] Comment on above: Performed By: #### U ARMICR #### [facility] [address] [place] [address] Dr. Gasper Garber MANUAL DIFF REQ NO Normal [facility] Comment on above: Performed By: #### U ARMICR #### [facility] [address] [place] [address] Dr. Gasper Garber MCH (RBC) [Entitic mass] 30.8 pg Normal 26.7-34.0 [facility] Comment on above: Performed By: #### U ARMICR #### [facility] [address] [place] [address] Dr. Gasper Garber MCHC (RBC) [Mass/Vol] 32.1 g/dL Normal 29.9-35.2 [facility] Comment on above: Performed By: #### U ARMICR #### [facility] [address] [place] [address] Dr. Gasper Garber MCV (RBC) [Entitic vol] 95.8 fL Normal 81.0-99.0 [facility] Comment on above: Performed By: #### U ARMICR #### [facility] [address] [place] [address] Dr. Gasper Garber MONO # 1.2 103/ul Critically high 0.3-0.8 [facility] Comment on above: Performed By: #### U ARMICR #### [facility] [address] [place] [address] Dr. Gasper Garber Monocytes/100 WBC (Bld) 13.0 % Critically high 1.7-12.0 [facility] Comment on above: Performed By: #### U ARMICR #### [facility] [address] [place] [address] Dr. Gasper Garber NEUT # 5.8 103/ul Normal 1.4-6.5 [facility] Comment on above: Performed By: #### U ARMICR #### [facility] [address] [place] [address] Dr. Gasper Garber Neutrophils/100 WBC (Bld) 63.7 % Normal 43.0-75.0 [facility] Comment on above: Performed By: #### U ARMICR #### [facility] [address] [place] [address] Dr. Gasper Garber Platelet mean volume (Bld) [Entitic vol] 10.0 fL Normal 9.5-13.5 [facility] Comment on above: Performed By: #### U ARMICR #### [facility] [address] [place] [address] Dr. Gasper Garber PLT 251 103/ul Normal 150-450 [facility] Comment on above: Performed By: #### U ARMICR #### [facility] [address] [place] [address] Dr. Gasper Garber RBC 3.80 106/ul Critically low 4.20-5.40 [facility] Comment on above: Performed By: #### U ARMICR #### [facility] [address] [place] [address] Dr. Gasper Garber WBC 9.2 103/ul Normal 4.0-11.0 [facility] Comment on above: Performed By: #### U ARMICR #### [facility] [address] [place] [address] Dr. Gasper Garber BASO # 0.0 103/ul Normal 0.0-0.1 [facility] Comment on above: Performed By: #### U ARMICR #### [facility] [address] [place] [address] Dr. Gasper Garber Basophils/100 WBC (Bld) 0.0 % Critically low 0.2-2.0 [facility] Comment on above: Performed By: #### U ARMICR #### [facility] [address] [place] [address] Dr. Gasper Garber EO # 0.0 103/ul Normal 0.0-0.7 [facility] Comment on above: Performed By: #### U ARMICR #### [facility] [address] [place] [address] Dr. Gasper Garber Eosinophils/100 WBC (Bld) 0.0 % Critically low 0.9-7.0 [facility] Comment on above: Performed By: #### U ARMICR #### [facility] [address] [place] [address] Dr. Gasper Garber Erythrocyte distribution width (RBC) [Ratio] 12.1 % Normal 11.0-15.0 [facility] Comment on above: Performed By: #### U ARMICR #### [facility] [address] [place] [address] Dr. Gasper Garber Hematocrit (Bld) [Volume fraction] 37.9 % Normal 36.0-48.0 [facility] Comment on above: Performed By: #### U ARMICR #### [facility] [address] [place] [address] Dr. Gasper Garber Hemoglobin (Bld) [Mass/Vol] 12.2 g/dL Normal 12.0-16.0 [facility] Comment on above: Performed By: #### U ARMICR #### [facility] [address] [place] [address] Dr. Gasper Garber IG # 0.00 10e3/ul Normal 0.00-0.03 [facility] Comment on above: Performed By: #### U ARMICR #### [facility] [address] [address] [address] Gasper Garber IG % 0.0 % Normal 0.0-0.5 [facility] Comment on above: Performed By: #### U ARMICR #### [facility] [address] [address] [address] Gasper Garber LYMPH # 1.3 103/ul Normal 1.2-3.8 [facility] Comment on above: Performed By: #### U ARMICR #### [facility] [address] [address] [address] Gasper Garber Lymphocytes/100 WBC (Bld) 18.6 % Critically low 20.5-60.0 [facility] Comment on above: Performed By: #### U ARMICR #### [facility] [address] [address] [address] Gasper Garber MANUAL DIFF REQ NO Normal [facility] Comment on above: Performed By: #### U ARMICR #### [facility] [address] [address] [address] Gasper Garber MCH (RBC) [Entitic mass] 30.7 pg Normal 26.7-34.0 [facility] Comment on above: Performed By: #### U ARMICR #### [facility] [address] [address] [address] Gasper Garber MCHC (RBC) [Mass/Vol] 32.2 g/dL Normal 29.9-35.2 [facility] Comment on above: Performed By: #### U ARMICR #### [facility] [address] [address] [address] Gasper Garber MCV (RBC) [Entitic vol] 95.5 fL Normal 81.0-99.0 [facility] Comment on above: Performed By: #### U ARMICR #### [facility] [address] [address] [address] Gasper Garber MONO # 0.8 103/ul Normal 0.3-0.8 [facility] Comment on above: Performed By: #### U ARMICR #### [facility] [address] [address] [address] Gasper Garber Monocytes/100 WBC (Bld) 11.6 % Normal 1.7-12.0 [facility] Comment on above: Performed By: #### U ARMICR #### [facility] [address] [address] [address] Gasper Garber NEUT # 5.0 103/ul Normal 1.4-6.5 [facility] Comment on above: Performed By: #### U ARMICR #### [facility] [address] [address] [address] Gasper Garber Neutrophils/100 WBC (Bld) 69.8 % Normal 43.0-75.0 [facility] Comment on above: Performed By: #### U ARMICR #### [facility] [address] [place] [address] Dr. Gasper Garber Platelet mean volume (Bld) [Entitic vol] 9.8 fL Normal 9.5-13.5 [facility] Comment on above: Performed By: #### U ARMICR #### [facility] [address] [address] [address] Gasper Garber PLT 258 103/ul Normal 150-450 [facility] Comment on above: Performed By: #### U ARMICR #### [facility] [address] [address] [address] Gasper Garber RBC 3.97 106/ul Critically low 4.20-5.40 [facility] Comment on above: Performed By: #### U ARMICR #### [facility] [address] [address] [address] Gasper Garber WBC 7.1 103/ul Normal 4.0-11.0 [facility] Comment on above: Performed By: #### U ARMICR #### [facility] [address] [place] [address] HEAD WO CONon [...] Mild cervical spondylosis. Electronically authenticated by: [facility] Date: 2022-05-14 00:20 Normal [facility] Covid-19 PCR (CVDTB)on 04-20 SARS-CoV-2 (COVID-19) RNA ANA LUISA+probe Ql (Unsp spec) Not detected Normal NOT DETECTED [facility] Comment on above: Result Comment: When diagnostic [...] for this test is supported by the [place] [employer] Service's declaration that [...] used). Performed By: #### L ACT #### [facility] [address] [place] [address] Dr. Gasper Garber ER URINE PROFILEon 3 Bilirubin Ql (U) Negative Normal NEGATIVE [facility] Comment on above: Performed By: #### A CETON #### [facility] [address] [place] [address] Dr. Gasper Garber Clarity (U) CLEAR Normal CLEAR [facility] Comment on above: Performed By: #### A CETON #### [facility] [address] [place] [address] Dr. Gasper Garber Color (U) LT. YELLOW Normal YELLOW [facility] Comment on above: Performed By: #### A CETON #### [facility] [address] [place] [address] Dr. Gasper Garber ERUAHD A micrscopic examina tion will be performed if indicated. Normal [facility] Comment on above: Performed By: #### A CETON #### [facility] [address] [place] [address] Dr. Gasper Garber Glucose Ql (U) Negative Normal NEGATIVE [facility] Comment on above: Performed By: #### A CETON #### [facility] [address] [place] [address] Dr. Gasper Garber Hemoglobin Ql (U) Negative Normal NEGATIVE [facility] Comment on above: Performed By: #### A CETON #### [facility] [address] [place] [address] Dr. Gasper Garber Ketones Ql (U) Negative Normal NEGATIVE [facility] Comment on above: Performed By: #### A CETON #### [facility] [address] [place] [address] Dr. Gasper Garber LEUKOCYTES Negative Normal NEGATIVE [facility] Comment on above: Performed By: #### A CETON #### [facility] [address] [place] [address] Dr. Gasper Garber Nitrite Ql (U) Positive Abnormal NEGATIVE [facility] Comment on above: Performed By: #### A CETON #### [facility] [address] [place] [address] Dr. Gasper Garber pH (U) 7.0 [pH] Normal 5-9 [facility] Comment on above: Performed By: #### A CETON #### [facility] [address] [place] [address] Dr. Gasper Garber SPEC GRAVITY <=1.005 Abnormal 1.005-<=1.0 25 [facility] Comment on above: Performed By: #### A CETON #### [facility] [address] [place] [address] Dr. Gasper Garber UA PROTEIN Negative Normal NEGATIVE/ TRACE [facility] Comment on above: Performed By: #### A CETON #### [facility] [address] [place] [address] Dr. Gasper Garber UR MICRO IND INDICATED Normal [facility] Comment on above: Performed By: #### A CETON #### [facility] [address] [place] [address] Dr. Gasper Garber Urobilinogen Qn (U) 0.2 {Kaushik'U}/dL Normal 0.2 - 1. 0 [facility] Comment on above: Performed By: #### A CETON #### [facility] [address] [place] [address] Dr. Gasper Garber MAGNESIUMon 05-14-2022 Magnesium [Mass/Vol] 2.4 mg/dL Normal 1.8-2.4 [facility] Comment on above: Performed By: #### Bernice HERNDON UMICRO #### [facility] [address] [place] [address] Dr. Gasper Garber PROF 14(COMP METB)on 023 Albumin [Mass/Vol] 3.5 g/dL Normal 3.4-5.0 [facility] Comment on above: Performed By: #### Bernice HERNDON UMICRO #### [facility] [address] [place] [address] Dr. Gasper Garber Albumin/Globulin [Mass ratio] 1.0 {ratio} Normal [facility] Comment on above: Performed By: #### Bernice HERNDON UMICRO #### [facility] [address] [place] [address] Dr. Gasper Garber ALP [Catalytic activity/Vol] 82 U/L Normal 46-116 [facility] Comment on above: Performed By: #### Bernice HERNDON UMICRO #### [facility] [address] [place] [address] Dr. Gasper Garber ALT [Catalytic activity/Vol] 22 U/L Normal 14-59 [facility] Comment on above: Performed By: #### Bernice HERNDON, UMICRO #### [facility] [address] [place] [address] Dr. Gasper Garber Anion gap [Moles/Vol] 11.1 mmol/L Normal [facility] Comment on above: Performed By: #### Bernice HERNDON, UMICRO #### [facility] [address] [place] [address] Dr. Gasper Garber AST [Catalytic activity/Vol] 14 U/L Critically low 15-37 [facility] Comment on above: Performed By: #### Bernice HERNDON, UMICRO #### [facility] [address] [place] [address] Dr. Gasper Garber Bilirubin [Mass/Vol] 0.5 mg/dL Normal 0.2-1.0 [facility] Comment on above: Performed By: #### BERNIE MALDONADO #### [facility] [address] [place] [address] Dr. Gasper Garber Calcium [Mass/Vol] 9.8 mg/dL Normal 8.5-10.1 [facility] Comment on above: Performed By: #### TONI MALDONADORO #### [facility] [address] [place] [address] Dr. Gasper Garber Chloride [Moles/Vol] 99 mmol/L Normal 98-107 [facility] Comment on above: Performed By: #### TONI MALDONADORO #### [facility] [address] [place] [address] Dr. Gasper Garber CO2 [Moles/Vol] 30.5 mmol/L Normal 21.0-32.0 [facility] Comment on above: Performed By: #### TONI MALDONADORO #### [facility] [address] [place] [address] Dr. Gasper Garber Creatinine [Mass/Vol] 1.75 mg/dL Critically high 0.55-1.02 [facility] Comment on above: Performed By: #### TONI MALDONADORO #### [facility] [address] [place] [address] Dr. Gasper Garber EGFR-AF [facility] 34 mL/min/1.73m2 Critically low >=60 [facility] Comment on above: Performed By: #### TONI MALDONADORO #### [facility] [address] [place] [address] Dr. Gasper Garber EGFR-NON AF [facility] 28 mL/min/1.73m2 Critically low >=60 [facility] Comment on above: Performed By: #### TONI MALDONADORO #### [facility] [address] [place] [address] Dr. Gasper Garber Globulin (S) [Mass/Vol] 3.4 g/dL Normal [facility] Comment on above: Performed By: #### TONI MALDONADORO #### [facility] [address] [address] [address] Gasper Garber Glucose [Mass/Vol] 154 mg/dL Critically high 74-106 [facility] Comment on above: Performed By: #### E MINR, UMICRO #### [facility] [address] [address] [address] Gasper Garber Potassium [Moles/Vol] 3.6 mmol/L Normal 3.5-5.1 [facility] Comment on above: Performed By: #### E MINR, UMICRO #### [facility] [address] [address] [address] Gasper Garber Protein [Mass/Vol] 6.9 g/dL Normal 6.4-8.2 [facility] Comment on above: Performed By: #### E YANICK, UMICRO #### [facility] [address] [place] [address] Dr. Gasper Garber Sodium [Moles/Vol] 137 mmol/L Normal 136-145 [facility] Comment on above: Performed By: #### E YANICK, UMICRO #### [facility] [address] [address] [address] Gasper Garber Urea nitrogen [Mass/Vol] 35.0 mg/dL Critically high 7.0-18.0 [facility] Comment on above: Performed By: #### E YANICK, UMICRO #### [facility] [address] [address] [address] Gasper Garber Urea nitrogen/Creatinine [Mass ratio] 20.0 mg/mg Normal [facility] Comment on above: Performed By: #### E YANICK, UMICRO #### [facility] [address] [address] [address] Gasper Garber Albumin [Mass/Vol] 3.7 g/dL Normal 3.4-5.0 [facility] Comment on above: Performed By: #### L ACT #### [facility] [address] [address] [address] Gasper Garber Albumin/Globulin [Mass ratio] 1.1 {ratio} Normal [facility] Comment on above: Performed By: #### L ACT #### [facility] [address] [address] [address] Gasper Garber ALP [Catalytic activity/Vol] 84 U/L Normal 46-116 [facility] Comment on above: Performed By: #### L ACT #### [facility] [address] [address] [address] Gasper Garber ALT [Catalytic activity/Vol] 26 U/L Normal 14-59 [facility] Comment on above: Performed By: #### L ACT #### [facility] [address] [place] [address] Dr. Gasper Garber Anion gap [Moles/Vol] 8.5 mmol/L Normal [facility] Comment on above: Performed By: #### L ACT #### [facility] [address] [place] [address] Dr. Gasper Garber AST [Catalytic activity/Vol] 16 U/L Normal 15-37 [facility] Comment on above: Performed By: #### L ACT #### [facility] [address] [place] [address] Dr. Gasper Garber Bilirubin [Mass/Vol] 0.4 mg/dL Normal 0.2-1.0 [facility] Comment on above: Performed By: #### L ACT #### [facility] [address] [place] [address] Dr. Gasper Garber Calcium [Mass/Vol] 9.8 mg/dL Normal 8.5-10.1 [facility] Comment on above: Performed By: #### L ACT #### [facility] [address] [address] [address] Gasper Garber Chloride [Moles/Vol] 99 mmol/L Normal 98-107 [facility] Comment on above: Performed By: #### L ACT #### [facility] [address] [place] [address] Dr. Gasper Garber CO2 [Moles/Vol] 32.3 mmol/L Critically high 21.0-32.0 [facility] Comment on above: Performed By: #### L ACT #### [facility] [address] [address] [address] Gasper Garber Creatinine [Mass/Vol] 1.84 mg/dL Critically high 0.55-1.02 [facility] Comment on above: Performed By: #### L ACT #### [facility] [address] [address] [address] Gasper Garber EGFR-AF [facility] LUCIAN 33 mL/min/1.73m2 Critically low >=60 [facility] Comment on above: Performed By: #### L ACT #### [facility] [address] [address] [address] Gasper Garber EGFR-NON AF [facility] LUCI[facility] 27 mL/min/1.73m2 Critically low >=60 [facility] Comment on above: Performed By: #### L ACT #### [facility] [address] [address] [address] Gasper Garber Globulin (S) [Mass/Vol] 3.4 g/dL Normal [facility] Comment on above: Performed By: #### L ACT #### [facility] [address] [address] [address] Gasper Garber Glucose [Mass/Vol] 180 mg/dL Critically high 74-106 [facility] Comment on above: Performed By: #### L ACT #### [facility] [address] [address] [address] Gasper Garber Potassium [Moles/Vol] 3.8 mmol/L Normal 3.5-5.1 [facility] Comment on above: Performed By: #### L ACT #### [facility] [address] [address] [address] Gasper Garber Protein [Mass/Vol] 7.1 g/dL Normal 6.4-8.2 [facility] Comment on above: Performed By: #### L ACT #### [facility] [address] [address] [address] Gasper Garber Sodium [Moles/Vol] 136 mmol/L Normal 136-145 [facility] Comment on above: Performed By: #### L ACT #### [facility] [address] [place] [address] Dr. Gasper Garber Urea nitrogen [Mass/Vol] 35.0 mg/dL Critically high 7.0-18.0 [facility] Comment on above: Performed By: #### L ACT #### [facility] [address] [place] [address] Dr. Gasper Garber Urea nitrogen/Creatinine [Mass ratio] 19.0 mg/mg Normal [facility] Comment on above: Performed By: #### L ACT #### [facility] [address] [place] [address] Dr. Gasper Garber PROTIMEon 05-14-2022 INR Coag (PPP) [Relative time] 0.95 {INR} Normal [facility] Comment on above: Performed By: #### U RCX #### [facility] [address] [place] [address] Dr. Gasper Garber INR GUIDELINES SEE BELOW Normal [facility] Comment on above: Result Comment: JESUS RED INR: 2.0 - 3.0 CONDITIONS NOT LISTED BELOW 2.5 - 3.5 FOR PROSTHETIC HEART VALVE REPLACEMENT 2.5 - 3.5 RECURRENT THROMBOSIS Performed By: #### U RCX #### [facility] [address] [place] [address] Dr. Gasper Garber PT Coag (PPP) [Time] 10.1 s Normal 9.0-11.6 [facility] Comment on above: Performed By: #### U RCX #### [facility] [address] [place] [address] Dr. Gasper Garber PTTon 05-14-2022 aPTT Coag (Bld) [Time] 24.7 s Normal 22.3-36.2 [facility] Comment on above: Performed By: #### E BERNIE HERNDON #### [facility] [address] [place] [address] Dr. Gasper Garber URINE MICROSCOPIC ONLYon BACTERIA LARGE Abnormal NONE SEEN The [facility] Comment on above: Performed By: #### U ARMICR #### [facility] [address] [place] [address] Dr. Gasper Garber Bacteria identified Cx Nom (U) INDICATED Normal The [facility] Comment on above: Performed By: #### U ARMICR #### [facility] [address] [place] [address] Dr. Gasper Garber CAST NONE SEEN Normal NONE SEEN The [facility] Comment on above: Performed By: #### U ARMICR #### [facility] [address] [place] [address] Dr. Gasper Garber Crystals LM Nom (Urine sed) NONE SEEN Normal NONE SEEN The [facility] Comment on above: Performed By: #### U ARMICR #### [facility] [address] [place] [address] Dr. Gasper Garber Epithelial cells LM Ql (Urine sed) MANY Abnormal NONE SEEN /RARE The [facility] Comment on above: Performed By: #### U ARMICR #### [facility] [address] [place] [address] Dr. Gasper Garber MUCOUS NONE SEEN Normal NONE SEEN The [facility] Comment on above: Performed By: #### U ARMICR #### [facility] [address] [place] [address] Dr. Gasper Garber RBC 0-2 Normal 0-2 The [facility] Comment on above: Performed By: #### U ARMICR #### [facility] [address] [place] [address] Dr. Gasper Garber WBC 0-2 Abnormal NONE SEEN The [facility] Comment on above: Performed By: #### U ARMICR #### [facility] [address] [place] [address] Dr. Gasper Garber XR CHEST 1 Von [...] by: SAI ORTA Date: 2022-05-14 00:19 Normal [facility] XR LSPINE 2_3 VIEWSon 2022 XR [...] by: CHRYSTAL LAUREANO Date: 2022-05-05 15:30 Normal [facility] GLYCOHEMOGLOBIN A1Con 2021 ADA RECOMMENDATION SEE BELOW Normal [facility] Comment on above: Result Comment: ADA RECOMMENDED LIMIT 4.0 - 6.0 ADA THERAPEUTIC TARGET < 7.0 ACTION SUGGESTED > 7.0 Performed By: #### BERNIE MALDONADO #### [facility] [address] [address] [address] Gasper Garber Glucose [Mass/Vol] 169 mg/dL Normal [facility] Comment on above: Performed By: #### BERNIE MALDONADO #### [facility] [address] [address] [address] Gasper Garber HbA1c (Bld) [Mass fraction] 7.5 % Critically high 4.5-6.2 [facility] Comment on above: Performed By: #### BERNIE MALDONADO #### [facility] [address] [address] [address] Gasper Garber NM GASTRIC EMPTYon 2 [...] NASRIN CHIU Date: 2021-09-09 13:23 Normal [facility] ACETONE SERUMon 08-31-2021 ACETONE Negative Normal NEGATIVE The [facility] Comment on above: Performed By: #### A CETON #### [facility] [address] [address] [address] Gasper Garber CBC AUTO DIFFon 08-31-2021 BASO # 0.0 103/ul Normal 0.0-0.1 [facility] Comment on above: Performed By: #### U ARMICR #### [facility] [address] [address] [address] Gasper Garber Basophils/100 WBC (Bld) 0.5 % Normal 0.2-2.0 [facility] Comment on above: Performed By: #### U ARMICR #### [facility] [address] [address] [address] Gasper Garber EO # 0.2 103/ul Normal 0.0-0.7 [facility] Comment on above: Performed By: #### U ARMICR #### [facility] [address] [address] [address] Gasper Garber Eosinophils/100 WBC (Bld) 1.9 % Normal 0.9-7.0 [facility] Comment on above: Performed By: #### U ARMICR #### [facility] [address] [address] [address] Gasper Garber Erythrocyte distribution width (RBC) [Ratio] 12.8 % Normal 11.0-15.0 [facility] Comment on above: Performed By: #### U ARMICR #### [facility] [address] [address] [address] Gasper Garber Hematocrit (Bld) [Volume fraction] 36.2 % Normal 36.0-48.0 [facility] Comment on above: Performed By: #### U ARMICR #### [facility] [address] [address] [address] Gasper Garber Hemoglobin (Bld) [Mass/Vol] 11.4 g/dL Critically low 12.0-16.0 [facility] Comment on above: Performed By: #### U ARMICR #### [facility] [address] [place] [address] Dr. Gasper Garber IG # 0.03 10e3/ul Normal 0.00-0.03 [facility] Comment on above: Performed By: #### U ARMICR #### [facility] [address] [place] [address] Dr. Gasper Garber IG % 0.4 % Normal 0.0-0.5 [facility] Comment on above: Performed By: #### U ARMICR #### [facility] [address] [place] [address] Dr. Gasper Garber LYMPH # 1.3 103/ul Normal 1.2-3.8 [facility] Comment on above: Performed By: #### U ARMICR #### [facility] [address] [place] [address] Dr. Gasper Garber Lymphocytes/100 WBC (Bld) 15.2 % Critically low 20.5-60.0 [facility] Comment on above: Performed By: #### U ARMICR #### [facility] [address] [place] [address] Dr. Gasper Garber MANUAL DIFF REQ NO Normal [facility] Comment on above: Performed By: #### U ARMICR #### [facility] [address] [place] [address] Dr. Gasper Garber MCH (RBC) [Entitic mass] 30.6 pg Normal 26.7-34.0 [facility] Comment on above: Performed By: #### U ARMICR #### [facility] [address] [place] [address] Dr. Gasper Garber MCHC (RBC) [Mass/Vol] 31.5 g/dL Normal 29.9-35.2 [facility] Comment on above: Performed By: #### U ARMICR #### [facility] [address] [place] [address] Dr. Gasper Garber MCV (RBC) [Entitic vol] 97.1 fL Normal 81.0-99.0 [facility] Comment on above: Performed By: #### U ARMICR #### [facility] [address] [place] [address] Dr. Gasper Garber MONO # 0.8 103/ul Normal 0.3-0.8 [facility] Comment on above: Performed By: #### U ARMICR #### [facility] [address] [place] [address] Dr. Gasper Garber Monocytes/100 WBC (Bld) 9.8 % Normal 1.7-12.0 [facility] Comment on above: Performed By: #### U ARMICR #### [facility] [address] [place] [address] Dr. Gasper Garber NEUT # 6.1 103/ul Normal 1.4-6.5 [facility] Comment on above: Performed By: #### U ARMICR #### [facility] [address] [place] [address] Dr. Gasper Garber Neutrophils/100 WBC (Bld) 72.2 % Normal 43.0-75.0 [facility] Comment on above: Performed By: #### U ARMICR #### [facility] [address] [place] [address] Dr. Gasper Garber Platelet mean volume (Bld) [Entitic vol] 10.2 fL Normal 9.5-13.5 [facility] Comment on above: Performed By: #### U ARMICR #### [facility] [address] [place] [address] Dr. Gasper Garber PLT 249 103/ul Normal 150-450 [facility] Comment on above: Performed By: #### U ARMICR #### [facility] [address] [place] [address] Dr. Gasper Garber RBC 3.73 106/ul Critically low 4.20-5.40 [facility] Comment on above: Performed By: #### U ARMICR #### [facility] [address] [place] [address] Dr. Gasper Garber WBC 8.4 103/ul Normal 4.0-11.0 [facility] Comment on above: Performed By: #### U ARMICR #### [facility] [address] [place] [address] Dr. Gasper Garber CULTURE URINEon 08-31-2021 CULTURE URINE Culture Observations : HEAVY GROWTH OF MIXED GENITAL KADEEM. NO POTENTIAL PATHOGENS SEEN. Normal The [facility] Comment on above: Performed By: #### A CETON #### [facility] [address] [place] [address] Dr. Gasper Garber ER URINE PROFILEon Bilirubin Ql (U) SMALL Abnormal NEGATIVE [facility] Comment on above: Performed By: #### E RUR UMICRO #### [facility] [address] [place] [address] Dr. Gasper Garber Clarity (U) CLOUDY Abnormal CLEAR [facility] Comment on above: Performed By: #### E RUR UMICRO #### [facility] [address] [place] [address] Dr. Gasper Garber Color (U) YELLOW Normal YELLOW The [facility] Comment on above: Performed By: #### E RUCrystal UMICRO #### [facility] [address] [place] [address] Dr. Gasper Garber ERUNIKI A micrscopic examina tion will be performed if indicated. Normal [facility] Comment on above: Performed By: #### E RUR UMICRO #### [facility] [address] [place] [address] Dr. Gasper Garber Glucose Ql (U) Negative Normal NEGATIVE [facility] Comment on above: Performed By: #### E RUR UMICRO #### [facility] [address] [place] [address] Dr. Gasper Garber Hemoglobin Ql (U) Negative Normal NEGATIVE [facility] Comment on above: Performed By: #### E RUR UMICRO #### [facility] [address] [place] [address] Dr. Gasper Garber Ketones Ql (U) Negative Normal NEGATIVE [facility] Comment on above: Performed By: #### Bernice HERNDON UMICRO #### [facility] [address] [place] [address] Dr. Gasper Garber LEUKOCYTES TRACE Abnormal NEGATIVE [facility] Comment on above: Performed By: #### Bernice HERNDON UMICRO #### [facility] [address] [place] [address] Dr. Gasper Garber Nitrite Ql (U) Negative Normal NEGATIVE [facility] Comment on above: Performed By: #### Bernice HERNDON UMICRO #### [facility] [address] [place] [address] Dr. Gasper Garber pH (U) 5.5 [pH] Normal 5-9 [facility] Comment on above: Performed By: #### Bernice HERNDON UMICRO #### [facility] [address] [place] [address] Dr. Gasper Garber Protein (U) [Mass/Vol] 100 mg/dL Abnormal NEGATIVE/ TRACE The [facility] Comment on above: Performed By: #### Bernice HERNDON UMICRO #### [facility] [address] [place] [address] Dr. Gasper Garber SPEC GRAVITY >=1.030 Abnormal 1.005-<=1.0 25 [facility] Comment on above: Performed By: #### Bernice HERNDON UMICRO #### [facility] [address] [place] [address] Dr. Gasper Garber UR MICRO IND INDICATED Normal [facility] Comment on above: Performed By: #### Bernice HERNDON UMICRO #### [facility] [address] [place] [address] Dr. Gasper Garber Urobilinogen Qn (U) 1.0 {Kaushik'U}/dL Normal 0.2 - 1. 0 [facility] Comment on above: Performed By: #### Bernice HERNDON UMICRO #### [facility] [address] [place] [address] Dr. Gasper Garber GI PANEL (PCR)on 08-31-2021 Adenovirus F 40/41 Not detected Normal NOT DETECTED [facility] Comment on above: Performed By: #### E YANICK UMICRO #### [facility] [address] [place] [address] Dr. Gasper Garber Astrovirus Not detected Normal NOT DETECTED [facility] Comment on above: Performed By: #### E YANICK, UMICRO #### [facility] [address] [place] [address] Dr. Gasper Garber C. Diff toxin A/B Not detected Normal NOT DETECTED [facility] Comment on above: Performed By: #### E YANICK, UMICRO #### [facility] [address] [place] [address] Dr. Gasper Garber Campylobacter Not detected Normal NOT DETECTED The [facility] Comment on above: Performed By: #### E YANICK UMICRO #### [facility] [address] [place] [address] Dr. Gasper Garber Cryptosporidium Not detected Normal NOT DETECTED The [facility] Comment on above: Performed By: #### Bernice HERNDON ICRO #### [facility] [address] [place] [address] Dr. Gasper Garber Cyclos. Cayetanensis Not detected Normal NOT DETECTED The [facility] Comment on above: Performed By: #### Bernice HERNDON ICRO #### [facility] [address] [place] [address] Dr. Gasper Garber E. Coli O157 Not Applicable Normal Not Applicable [facility] Comment on above: Performed By: #### Bernice HERNDON ICRO #### [facility] [address] [place] [address] Dr. Gasper Garber E. histolytica Not detected Normal NOT DETECTED The [facility] Comment on above: Performed By: #### Bernice HERNDON UMICRO #### [facility] [address] [place] [address] Dr. Gasper Garber EAEC Not detected Normal NOT DETECTED The [facility] Comment on above: Performed By: #### Bernice HERNDON UMICRO #### [facility] [address] [place] [address] Dr. Gasper Garber EIEC Not detected Normal NOT DETECTED The [facility] Comment on above: Performed By: #### E YANICK, UMICRO #### [facility] [address] [place] [address] Dr. Gasper Garber EPEC Not detected Normal NOT DETECTED [facility] Comment on above: Performed By: #### E YANICK, UMICRO #### [facility] [address] [place] [address] Dr. Gasper Garber ETEC Not detected Normal NOT DETECTED The [facility] Comment on above: Performed By: #### E YANICK, UMICRO #### [facility] [address] [place] [address] Dr. Gasper Carmona Not detected Normal NOT DETECTED The [facility] Comment on above: Performed By: #### E YANICK, UMICRO #### [facility] [address] [place] [address] Dr. Gasper LOPEZ CONTROLS PASSED Normal [facility] Comment on above: Performed By: #### E YANICK UMICRO #### [facility] [address] [place] [address] Dr. Gasper RUVALCABA [facility] HEADER GI PANEL BACTERIA Normal T [facility] Comment on above: Performed By: #### Bernice HERNDON UMICRO #### [facility] [address] [place] [address] Dr. Gasper NUNEZ ECOLI GI PANEL DIARRHEAGEN IC E.COLI / SHIGELLA Normal [facility] Comment on above: Performed By: #### Bernice HERNDON UMICRO #### [facility] [address] [place] [address] Dr. Gasper NUNEZ INFO SEE BELOW Normal [facility] Comment on above: Result Comment: EAEC - Enteroaggregative E. Coli EPEC- Enteropathogenic E. Coli ETEC- Enterotoxigenic E. Coli lt/st STEC- Shigella-like toxin-producing E. Coli stx1/stx2 EIEC- Shigella/Enteroinvasive E. Coli Performed By: #### Bernice HERNDON UMICRO #### [facility] [address] [place] [address] Dr. Gasper NUNEZ PARASITES GI PANEL PARASITES Normal [facility] Comment on above: Performed By: #### E RUR, UMICRO #### [facility] [address] [place] [address] Dr. Gasper NUNEZ VIRUS GI PANEL VIRUSES Normal [facility] Comment on above: Performed By: #### E RUR, UMICRO #### [facility] [address] [place] [address] Dr. Gasper Garber Norovirus GI/GII Detected Abnormal NOT DETECTED The [facility] Comment on above: Performed By: #### E RUR, UMICRO #### [facility] [address] [place] [address] Dr. Gasper Garber P. Shigelloides Not detected Normal NOT DETECTED The [facility] Comment on above: Performed By: #### E RUCrystal, UMICRO #### [facility] [address] [place] [address] Dr. Gasper Garber Rotavirus A Not detected Normal NOT DETECTED The [facility] Comment on above: Performed By: #### E YANICK, UMICRO #### [facility] [address] [place] [address] Dr. Gasper Garber Salmonella Not detected Normal NOT DETECTED The [facility] Comment on above: Performed By: #### E YANICK, UMICRO #### [facility] [address] [place] [address] Dr. Gasper Garber Sapovirus Not detected Normal NOT DETECTED The [facility] Comment on above: Performed By: #### E RUR, UMICRO #### [facility] [address] [place] [address] Dr. Gasper Garber STEC Not detected Normal NOT DETECTED The [facility] [facility] Comment on above: Performed By: #### E RUR, UMICRO #### [facility] [address] [place] [address] Dr. Gasper Garber Vibrio Not detected Normal NOT DETECTED [facility] Comment on above: Performed By: #### E RUR, UMICRO #### [facility] [address] [place] [address] Dr. Gasper Garber Vibrio Cholera Not detected Normal NOT DETECTED [facility] Comment on above: Performed By: #### TONI MALDONADORO #### [facility] [address] [place] [address] Dr. Gasper Garber Y. Enterocolitica Not detected Normal NOT DETECTED [facility] Comment on above: Performed By: #### TONI MALDONADORO #### [facility] [address] [place] [address] Dr. Gasper Garber LACTATE/LACTIC ACIDon 2021 Lactate [Moles/Vol] 1.0 mmol/L Normal 0.4-1.9 [facility] Comment on above: Performed By: #### P T, PTT #### [facility] [address] [place] [address] Dr. Gasper Graber LIPASEon 08-31-2021 Lipase [Catalytic activity/Vol] 166.0 U/L Normal 73.0-393.0 [facility] Comment on above: Performed By: #### U ARMICR #### [facility] [address] [place] [address] Dr. Gasper Garber PROF 14(COMP METB)on 022 Albumin [Mass/Vol] 3.7 g/dL Normal 3.4-5.0 [facility] Comment on above: Performed By: #### U ARMICR #### [facility] [address] [place] [address] Dr. Gasper Garber Albumin/Globulin [Mass ratio] 1.0 {ratio} Normal [facility] Comment on above: Performed By: #### U ARMICR #### [facility] [address] [place] [address] Dr. Gasper Garber ALP [Catalytic activity/Vol] 75 U/L Normal 46-116 [facility] Comment on above: Performed By: #### U ARMICR #### [facility] [address] [place] [address] Dr. Gasper Garber ALT [Catalytic activity/Vol] 44 U/L Normal 14-59 [facility] Comment on above: Performed By: #### U ARMICR #### [facility] [address] [address] [address] Gasper Garber Anion gap [Moles/Vol] 15.3 mmol/L Normal [facility] Comment on above: Performed By: #### U ARMICR #### [facility] [address] [address] [address] Gasper Garber AST [Catalytic activity/Vol] 27 U/L Normal 15-37 [facility] Comment on above: Performed By: #### U ARMICR #### [facility] [address] [address] [address] Gasper Garber Bilirubin [Mass/Vol] 0.5 mg/dL Normal 0.2-1.0 [facility] Comment on above: Performed By: #### U ARMICR #### [facility] [address] [address] [address] Gasper Garber Calcium [Mass/Vol] 9.7 mg/dL Normal 8.5-10.1 [facility] Comment on above: Performed By: #### U ARMICR #### [facility] [address] [address] [address] Gasper Garber Chloride [Moles/Vol] 105 mmol/L Normal 98-107 [facility] Comment on above: Performed By: #### U ARMICR #### [facility] [address] [address] [address] Gasper Garber CO2 [Moles/Vol] 24.0 mmol/L Normal 21.0-32.0 [facility] Comment on above: Performed By: #### U ARMICR #### [facility] [address] [address] [address] Gasper Garber Creatinine [Mass/Vol] 2.20 mg/dL Critically high 0.55-1.02 [facility] Comment on above: Performed By: #### U ARMICR #### [facility] [address] [address] [address] Gasper Garber EGFR-AF [facility] 26 mL/min/1.73m2 Critically low >=60 [facility] Comment on above: Performed By: #### U ARMICR #### [facility] [address] [address] [address] Gasper Garber EGFR-NON AF [facility] 22 mL/min/1.73m2 Critically low >=60 [facility] Comment on above: Performed By: #### U ARMICR #### [facility] [address] [address] [address] Gasper Garber Globulin (S) [Mass/Vol] 3.7 g/dL Normal [facility] Comment on above: Performed By: #### U ARMICR #### [facility] [address] [address] [address] Gasper Garber Glucose [Mass/Vol] 280 mg/dL Critically high 74-106 [facility] Comment on above: Performed By: #### U ARMICR #### [facility] [address] [address] [address] Gasper Garber Potassium [Moles/Vol] 4.3 mmol/L Normal 3.5-5.1 [facility] Comment on above: Performed By: #### U ARMICR #### [facility] [address] [address] [address] Gasper Garber Protein [Mass/Vol] 7.4 g/dL Normal 6.4-8.2 [facility] Comment on above: Performed By: #### U ARMICR #### [facility] [address] [address] [address] Gasper Garber Sodium [Moles/Vol] 140 mmol/L Normal 136-145 [facility] Comment on above: Performed By: #### U ARMICR #### [facility] [address] [address] [address] Gasper Garber Urea nitrogen [Mass/Vol] 29.0 mg/dL Critically high 7.0-18.0 [facility] Comment on above: Performed By: #### U ARMICR #### [facility] [address] [address] [address] Gasper Garber Urea nitrogen/Creatinine [Mass ratio] 13.2 mg/mg Normal [facility] Comment on above: Performed By: #### U ARMICR #### [facility] [address] [place] [address] Dr. Gasper Garber TSHon 08-31-2021 TSH 0.923 uIU/mL Normal 0.358-3.740 [facility] Comment on above: Performed By: #### U ARMICR #### [facility] [address] [place] [address] Dr. Gasper Garber URINE MICROSCOPIC ONLYon BACTERIA SMALL Abnormal NONE SEEN [facility] Comment on above: Performed By: #### E RUR, UMICRO #### [facility] [address] [place] [address] Dr. Gasper Garber Bacteria identified Cx Nom (U) INDICATED Normal [facility] Comment on above: Performed By: #### E RUR, UMICRO #### [facility] [address] [place] [address] Dr. Gasper Garber CAST NONE SEEN Normal NONE SEEN [facility] Comment on above: Performed By: #### E RUR, UMICRO #### [facility] [address] [place] [address] Dr. Gasper Garber Crystals LM Nom (Urine sed) NONE SEEN Normal NONE SEEN [facility] Comment on above: Performed By: #### E RUR, UMICRO #### [facility] [address] [place] [address] Dr. Gasper Garber Epithelial cells LM Ql (Urine sed) MANY Abnormal NONE SEEN /RARE [facility] Comment on above: Performed By: #### E RUR, UMICRO #### [facility] [address] [place] [address] Dr. Gasper Garber MUCOUS NONE SEEN Normal NONE SEEN [facility] Comment on above: Performed By: #### E RUR, UMICRO #### [facility] [address] [place] [address] Dr. Gasper Garber RBC 0-2 Normal 0-2 [facility] Comment on above: Performed By: #### E RUR, UMICRO #### [facility] [address] [address] [address] Gasper Garber WBC 2-5 Abnormal NONE SEEN [facility] Comment on above: Performed By: #### BERNIE MALDONADO #### [facility] [address] [place] [address] Dr. Gasper Garber XR ABD FLAT UP_PA [...] CHRYSTAL LAUREANO Date: 2021-08-31 15:55 Normal [facility] CBC AUTO DIFFon 08-27-2021 BASO # 0.1 103/ul Normal 0.0-0.1 [facility] Comment on above: Performed By: #### BERNIE MALDONADO #### [facility] [address] [place] [address] Dr. Gasper Garber Basophils/100 WBC (Bld) 0.6 % Normal 0.2-2.0 [facility] Comment on above: Performed By: #### BERNIE MALDONADO #### [facility] [address] [address] [address] Gasper Garber EO # 0.0 103/ul Normal 0.0-0.7 [facility] Comment on above: Performed By: #### BERNIE MALDONADO #### [facility] [address] [place] [address] Dr. Gasper Garber Eosinophils/100 WBC (Bld) 0.5 % Critically low 0.9-7.0 [facility] Comment on above: Performed By: #### BERNIE MALDONADO #### [facility] [address] [place] [address] Dr. Gasper Garber Erythrocyte distribution width (RBC) [Ratio] 13.0 % Normal 11.0-15.0 [facility] Comment on above: Performed By: #### TONI MALDONADORO #### [facility] [address] [place] [address] Dr. Gasper Garber Hematocrit (Bld) [Volume fraction] 35.6 % Critically low 36.0-48.0 [facility] Comment on above: Performed By: #### Bernice HERNDON, UMICRO #### [facility] [address] [place] [address] Dr. Gasper Garber Hemoglobin (Bld) [Mass/Vol] 11.5 g/dL Critically low 12.0-16.0 [facility] Comment on above: Performed By: #### Bernice HERNDON UMICRO #### [facility] [address] [place] [address] Dr. Gasper Garber IG # 0.03 10e3/ul Normal 0.00-0.03 [facility] Comment on above: Performed By: #### Benrice HERNDON UMICRO #### [facility] [address] [place] [address] Dr. Gasper Garber IG % 0.3 % Normal 0.0-0.5 [facility] Comment on above: Performed By: #### Bernice HERNDON, UMICRO #### [facility] [address] [place] [address] Dr. Gasper Garber LYMPH # 1.0 103/ul Critically low 1.2-3.8 [facility] Comment on above: Performed By: #### Bernice HERNDON, UMICRO #### [facility] [address] [place] [address] Dr. Gasper Garber Lymphocytes/100 WBC (Bld) 10.8 % Critically low 20.5-60.0 [facility] Comment on above: Performed By: #### Bernice HERNDON, UMICRO #### [facility] [address] [place] [address] Dr. Gasper Garber MANUAL DIFF REQ NO Normal [facility] Comment on above: Performed By: #### TONI MALDONADORO #### [facility] [address] [place] [address] Dr. Gasper Garber MCH (RBC) [Entitic mass] 31.2 pg Normal 26.7-34.0 [facility] Comment on above: Performed By: #### TONI MALDONADORO #### [facility] [address] [place] [address] Dr. Gasper Garber MCHC (RBC) [Mass/Vol] 32.3 g/dL Normal 29.9-35.2 [facility] Comment on above: Performed By: #### JOANNE MALDONADOICRO #### [facility] [address] [place] [address] Dr. Gasper Garber MCV (RBC) [Entitic vol] 96.5 fL Normal 81.0-99.0 [facility] Comment on above: Performed By: #### TONI MALDONADORO #### [facility] [address] [place] [address] Dr. Gasper Garber MONO # 0.6 103/ul Normal 0.3-0.8 [facility] Comment on above: Performed By: #### TONI MALDONADORO #### [facility] [address] [place] [address] Dr. Gasper Garber Monocytes/100 WBC (Bld) 7.2 % Normal 1.7-12.0 [facility] Comment on above: Performed By: #### JOANNE MALDONADOICRO #### [facility] [address] [place] [address] Dr. Gasper Garber NEUT # 7.1 103/ul Critically high 1.4-6.5 [facility] Comment on above: Performed By: #### TONI MALDONADORO #### [facility] [address] [place] [address] Dr. Gasper Garber Neutrophils/100 WBC (Bld) 80.6 % Critically high 43.0-75.0 [facility] Comment on above: Performed By: #### TONI MALDONADORO #### [facility] [address] [address] [address] Gasper Garber Platelet mean volume (Bld) [Entitic vol] 10.2 fL Normal 9.5-13.5 [facility] Comment on above: Performed By: #### Bernice HERNDON, UMICRO #### [facility] [address] [place], [place] [address] Dr. Gasper Garber PLT 276 103/ul Normal 150-450 [facility] Comment on above: Performed By: #### Bernice HERNDON, UMICRO #### [facility] [address] [place], [place] [address] Dr. Gasper Garber RBC 3.69 106/ul Critically low 4.20-5.40 [facility] Comment on above: Performed By: #### Bernice HERNDON, UMICRO #### [facility] [address] [place], [place] [address] Dr. Gasper Garber WBC 8.8 103/ul Normal 4.0-11.0 [facility] Comment on above: Performed By: #### Bernice HERNDON, UMICRO #### [facility] [address] [place], [place] [address] ABD/PELVIS WO CONon [...] BELIA GAFFNEY Date: 2021-08-27 16:04 Normal [facility] ER URINE PROFILEon 2 Bilirubin Ql (U) Negative Normal NEGATIVE [facility] Comment on above: Performed By: #### Bernice HERNDON UMICRO #### [facility] [address] [place] [address] Dr. Gasper Garber Clarity (U) CLEAR Normal CLEAR [facility] Comment on above: Performed By: #### Bernice HERNDON UMICRO #### [facility] [address] [address] [address] Gasper Garber Color (U) LT. YELLOW Normal YELLOW [facility] Comment on above: Performed By: #### eBrnice HERNDON UMICRO #### [facility] [address] [place] [address] Dr. Gasper Garber ERUNIKI A micrscopic examina tion will be performed if indicated. Normal [facility] Comment on above: Performed By: #### Bernice COPELANDR UMICRO #### [facility] [address] [address] [address] Gasper Garber Glucose Ql (U) Negative Normal NEGATIVE [facility] Comment on above: Performed By: #### E RUR UMICRO #### [facility] [address] [place] [address] Dr. Gasper Garber Hemoglobin Ql (U) Negative Normal NEGATIVE [facility] Comment on above: Performed By: #### BERNIE MALDONADO #### [facility] [address] [place] [address] Dr. Gasper Garber Ketones Ql (U) Negative Normal NEGATIVE [facility] Comment on above: Performed By: #### TONI MALDONADORO #### [facility] [address] [place] [address] Dr. Gasper Garber LEUKOCYTES Negative Normal NEGATIVE [facility] Comment on above: Performed By: #### TONI MALDONADORO #### [facility] [address] [place] [address] Dr. Gasper Garber Nitrite Ql (U) Negative Normal NEGATIVE [facility] Comment on above: Performed By: #### TONI MALDONADORO #### [facility] [address] [place] [address] Dr. Gasper Garber pH (U) 6.5 [pH] Normal 5-9 [facility] Comment on above: Performed By: #### TONI MALDONADORO #### [facility] [address] [place] [address] Dr. Gasper Garber Protein (U) [Mass/Vol] 100 mg/dL Abnormal NEGATIVE/ TRACE [facility] Comment on above: Performed By: #### TONI MALDONADORO #### [facility] [address] [place] [address] Dr. Gasper Garber SPEC GRAVITY 1.015 Normal 1.005-<=1.0 25 [facility] Comment on above: Performed By: #### TONI MALDONADORO #### [facility] [address] [place] [address] Dr. Gasper Garber UR MICRO IND INDICATED Normal [facility] Comment on above: Performed By: #### TONI MALDONADORO #### [facility] [address] [place] [address] Dr. Gasper Garber Urobilinogen Qn (U) 0.2 {Kaushik'U}/dL Normal 0.2 - 1. 0 [facility] Comment on above: Performed By: #### TONI MALDONADORO #### [facility] [address] [address] [address] Gasper Garber PROF CHEM 8 (BAS METB)on Anion gap [Moles/Vol] 14.7 mmol/L Normal [facility] Comment on above: Performed By: #### P T, PTT #### [facility] [address] [place] [address] Dr. Gasper Garber Calcium [Mass/Vol] 10.1 mg/dL Normal 8.5-10.1 [facility] Comment on above: Performed By: #### P T, PTT #### [facility] [address] [place] [address] Dr. Gasper Garber Chloride [Moles/Vol] 105 mmol/L Normal 98-107 [facility] Comment on above: Performed By: #### P T, PTT #### [facility] [address] [place] [address] Dr. Gasper Garber CO2 [Moles/Vol] 24.0 mmol/L Normal 21.0-32.0 [facility] Comment on above: Performed By: #### P T, PTT #### [facility] [address] [place] [address] Dr. Gasper Garber Creatinine [Mass/Vol] 1.56 mg/dL Critically high 0.55-1.02 [facility] Comment on above: Performed By: #### P T, PTT #### [facility] [address] [place] [address] Dr. Gasper Garber EGFR-AF [facility] 39 mL/min/1.73m2 Critically low >=60 [facility] Comment on above: Performed By: #### P T, PTT #### [facility] [address] [place] [address] Dr. Gasper Garber EGFR-NON AF [facility] 32 mL/min/1.73m2 Critically low >=60 [facility] Comment on above: Performed By: #### P T, PTT #### [facility] [address] [place] [address] Dr. Gasper Garber Glucose [Mass/Vol] 209 mg/dL Critically high 74-106 [facility] Comment on above: Performed By: #### P T, PTT #### [facility] [address] [address] [address] Gasper Garber Potassium [Moles/Vol] 4.7 mmol/L Normal 3.5-5.1 [facility] Comment on above: Performed By: #### P T, PTT #### [facility] [address] [place] [address] Dr. Gasper Garber Sodium [Moles/Vol] 139 mmol/L Normal 136-145 [facility] Comment on above: Performed By: #### P T, PTT #### [facility] [address] [place] [address] Dr. Gasper Garber Urea nitrogen [Mass/Vol] 16.0 mg/dL Normal 7.0-18.0 [facility] Comment on above: Performed By: #### P T, PTT #### [facility] [address] [place] [address] Dr. Gasper Garber Urea nitrogen/Creatinine [Mass ratio] 10.3 mg/mg Normal [facility] Comment on above: Performed By: #### P T, PTT #### [facility] [address] [place] [address] Dr. Gasper Garber URINE MICROSCOPIC ONLYon BACTERIA TRACE Abnormal NONE SEEN [facility] Comment on above: Performed By: #### Bernice HERNDON UMICRO #### [facility] [address] [place] [address] Dr. Gasper Garber Bacteria identified Cx Nom (U) NOT INDICATED Normal [facility] Comment on above: Performed By: #### E RUR UMICRO #### [facility] [address] [place] [address] Dr. Gasper Garber CAST NONE SEEN Normal NONE SEEN [facility] Comment on above: Performed By: #### Bernice HERNDON UMICRO #### [facility] [address] [place] [address] Dr. Gasper Garber Crystals LM Nom (Urine sed) NONE SEEN Normal NONE SEEN [facility] Comment on above: Performed By: #### Bernice HERNDON UMICRO #### [facility] [address] [address] [address] Gasper Garber Epithelial cells LM Ql (Urine sed) FEW Abnormal NONE SEEN /RARE [facility] Comment on above: Performed By: #### E YANICK UMICRO #### [facility] [address] [address] [address] Gasper Garber MUCOUS NONE SEEN Normal NONE SEEN [facility] Comment on above: Performed By: #### Bernice HERNDON, UMICRO #### [facility] [address] [address] [address] Gasper Garber RBC NONE SEEN Abnormal 0-2 [facility] Comment on above: Performed By: #### E YANICK UMICRO #### [facility] [address] [address] [address] Gasper Garber WBC 0-2 Abnormal NONE SEEN [facility] Comment on above: Performed By: #### Bernice HERNDON UMICRO #### [facility] [address] [place] [address] Dr. Gasper Garber CULTURE URINEon 08-19-2021 CULTURE URINE Culture Observations : Called to [facility] Escamilla rn 08-19-21 @5926 Culture Observations: METHICILLIN RESISTANT STAPH AUREUS ISOLATED. [...] C Oxacillin >=4 R C Normal [facility] Comment on above: Performed By: #### A CETON #### [facility] [address] [place] [address] Dr. Gasper Garber CBC AUTO DIFFon 06-28-2022 BASO # 0.0 103/ul Normal 0.0-0.1 [facility] Comment on above: Performed By: #### BERNIE MALDONADO #### [facility] [address] [place] [address] Dr. Gasper Garber Basophils/100 WBC (Bld) 0.4 % Normal 0.2-2.0 [facility] Comment on above: Performed By: #### TONI MALDONADORO #### [facility] [address] [place] [address] Dr. Gasper Garber EO # 0.1 103/ul Normal 0.0-0.7 [facility] Comment on above: Performed By: #### TONI MALDONADORO #### [facility] [address] [place] [address] Dr. Gasper Garber Eosinophils/100 WBC (Bld) 1.0 % Normal 0.9-7.0 [facility] Comment on above: Performed By: #### TONI MALDONADORO #### [facility] [address] [place] [address] Dr. Gasper Garber Erythrocyte distribution width (RBC) [Ratio] 12.5 % Normal 11.0-15.0 [facility] Comment on above: Performed By: #### TONI MALDONADORO #### [facility] [address] [place] [address] Dr. Gasper Garber Hematocrit (Bld) [Volume fraction] 35.3 % Critically low 36.0-48.0 [facility] Comment on above: Performed By: #### TONI MALDONADORO #### [facility] [address] [place] [address] Dr. Gasper Garber Hemoglobin (Bld) [Mass/Vol] 11.7 g/dL Critically low 12.0-16.0 [facility] Comment on above: Performed By: #### TONI MALDONADORO #### [facility] [address] [place] [address] Dr. Gasper Garber IG # 0.03 10e3/ul Normal 0.00-0.03 [facility] Comment on above: Performed By: #### Berniec HERNDON UMICRO #### [facility] [address] [place] [address] Dr. Gasper Garber IG % 0.3 % Normal 0.0-0.5 [facility] Comment on above: Performed By: #### E YANICK UMICRO #### [facility] [address] [place] [address] Dr. Gasper Garber LYMPH # 0.9 103/ul Critically low 1.2-3.8 [facility] Comment on above: Performed By: #### E RUCrystal UMICRO #### [facility] [address] [place] [address] Dr. Gasper Garber Lymphocytes/100 WBC (Bld) 9.6 % Critically low 20.5-60.0 [facility] Comment on above: Performed By: #### Bernice HERNDON UMICRO #### [facility] [address] [place] [address] Dr. Gasper Garber MANUAL DIFF REQ NO Normal [facility] Comment on above: Performed By: #### Bernice HERNDON UMICRO #### [facility] [address] [place] [address] Dr. Gasper Garber MCH (RBC) [Entitic mass] 30.8 pg Normal 26.7-34.0 [facility] Comment on above: Performed By: #### Bernice HERNDON UMICRO #### [facility] [address] [place] [address] Dr. Gasper Garber MCHC (RBC) [Mass/Vol] 33.1 g/dL Normal 29.9-35.2 [facility] Comment on above: Performed By: #### E YANICK UMICRO #### [facility] [address] [place] [address] Dr. Gasper Garber MCV (RBC) [Entitic vol] 92.9 fL Normal 81.0-99.0 [facility] Comment on above: Performed By: #### Bernice HERNDON, UMICRO #### [facility] [address] [place] [address] Dr. Gasper Garber MONO # 0.9 103/ul Critically high 0.3-0.8 [facility] Comment on above: Performed By: #### TONI MALDONADORO #### [facility] [address] [place] [address] Dr. Gasper Garber Monocytes/100 WBC (Bld) 9.3 % Normal 1.7-12.0 [facility] Comment on above: Performed By: #### TONI MALDONADORO #### [facility] [address] [place] [address] Dr. Gasper Garber NEUT # 7.7 103/ul Critically high 1.4-6.5 [facility] Comment on above: Performed By: #### TONI MALDONADORO #### [facility] [address] [place] [address] Dr. Gasper Garber Neutrophils/100 WBC (Bld) 79.4 % Critically high 43.0-75.0 [facility] Comment on above: Performed By: #### TONI MALDONADORO #### [facility] [address] [place] [address] Dr. Gasper Garber Platelet mean volume (Bld) [Entitic vol] 10.1 fL Normal 9.5-13.5 [facility] Comment on above: Performed By: #### TONI MALDONADORO #### [facility] [address] [place] [address] Dr. Gasper Garber PLT 302 103/ul Normal 150-450 [facility] Comment on above: Performed By: #### JOANNE MALDONADOICRO #### [facility] [address] [place] [address] Dr. Gasper Garebr RBC 3.80 106/ul Critically low 4.20-5.40 [facility] Comment on above: Performed By: #### TONI MALDONADORO #### [facility] [address] [place] [address] Dr. Gasper Garber WBC 9.7 103/ul Normal 4.0-11.0 [facility] Comment on above: Performed By: #### E RUR, UMICRO #### [facility] [address] [address] [address] Gasper Garber ER URINE PROFILEon 2 Bilirubin Ql (U) Negative Normal NEGATIVE [facility] Comment on above: Performed By: #### U ARMICR #### [facility] [address] [address] [address] Gasper Garber Clarity (U) CLEAR Normal CLEAR [facility] Comment on above: Performed By: #### U ARMICR #### [facility] [address] [address] [address] Gasper Garber Color (U) LT. YELLOW Normal YELLOW [facility] Comment on above: Performed By: #### U ARMICR #### [facility] [address] [address] [address] Gasper Garber ERUAHD A micrscopic examina tion will be performed if indicated. Normal [facility] Comment on above: Performed By: #### U ARMICR #### [facility] [address] [place] [address] Dr. Gasper Garber Glucose Ql (U) Negative Normal NEGATIVE [facility] Comment on above: Performed By: #### U ARMICR #### [facility] [address] [address] [address] Gasper Garber Hemoglobin Ql (U) Negative Normal NEGATIVE [facility] Comment on above: Performed By: #### U ARMICR #### [facility] [address] [address] [address] Gasper Garber Ketones Ql (U) Negative Normal NEGATIVE [facility] Comment on above: Performed By: #### U ARMICR #### [facility] [address] [address] [address] Gasper Garber LEUKOCYTES MODERATE Abnormal NEGATIVE [facility] Comment on above: Performed By: #### U ARMICR #### [facility] [address] [place] [address] Dr. Gasper Garber Nitrite Ql (U) Negative Normal NEGATIVE [facility] Comment on above: Performed By: #### U ARMICR #### [facility] [address] [place] [address] Dr. Gasper Garber pH (U) 7.0 [pH] Normal 5-9 [facility] Comment on above: Performed By: #### U ARMICR #### [facility] [address] [place] [address] Dr. Gasper Garber SPEC GRAVITY 1.010 Normal 1.005-<=1.0 25 [facility] Comment on above: Performed By: #### U ARMICR #### [facility] [address] [place] [address] Dr. Gasper Garber UA PROTEIN Negative Normal NEGATIVE/ TRACE [facility] Comment on above: Performed By: #### U ARMICR #### [facility] [address] [place] [address] Dr. Gasper Garber UR MICRO IND INDICATED Normal [facility] Comment on above: Performed By: #### U ARMICR #### [facility] [address] [place] [address] Dr. Gasper Garber Urobilinogen Qn (U) 0.2 {Kaushik'U}/dL Normal 0.2 - 1. 0 [facility] Comment on above: Performed By: #### U ARMICR #### [facility] [address] [place] [address] Dr. Gasper Garber PROF 14(COMP METB)on 022 Albumin [Mass/Vol] 3.9 g/dL Normal 3.4-5.0 [facility] Comment on above: Performed By: #### P T, PTT #### [facility] [address] [place] [address] Dr. Gasper Garber Albumin/Globulin [Mass ratio] 1.2 {ratio} Normal [facility] Comment on above: Performed By: #### P T, PTT #### [facility] [address] [place] [address] Dr. Gasper Garber ALP [Catalytic activity/Vol] 70 U/L Normal 46-116 [facility] Comment on above: Performed By: #### P T, PTT #### [facility] [address] [address] [address] Gasper Garber ALT [Catalytic activity/Vol] 44 U/L Normal 14-59 [facility] Comment on above: Performed By: #### P T, PTT #### [facility] [address] [address] [address] Gasper Garber Anion gap [Moles/Vol] 17.7 mmol/L Normal [facility] Comment on above: Performed By: #### P T, PTT #### [facility] [address] [address] [address] Gasper Garber AST [Catalytic activity/Vol] 31 U/L Normal 15-37 [facility] Comment on above: Performed By: #### P T, PTT #### [facility] [address] [address] [address] Gasper Garber Bilirubin [Mass/Vol] 0.6 mg/dL Normal 0.2-1.0 [facility] Comment on above: Performed By: #### P T, PTT #### [facility] [address] [address] [address] Gasper Garber Calcium [Mass/Vol] 9.9 mg/dL Normal 8.5-10.1 [facility] Comment on above: Performed By: #### P T, PTT #### [facility] [address] [address] [address] Gasper Garber Chloride [Moles/Vol] 99 mmol/L Normal 98-107 [facility] Comment on above: Performed By: #### P T, PTT #### [facility] [address] [address] [address] Gasper Garber CO2 [Moles/Vol] 24.4 mmol/L Normal 21.0-32.0 [facility] Comment on above: Performed By: #### P T, PTT #### [facility] [address] [address] [address] Gasper Garber Creatinine [Mass/Vol] 3.08 mg/dL Critically high 0.55-1.02 [facility] Comment on above: Performed By: #### P T, PTT #### [facility] [address] [address] [address] Gasper Garber EGFR-AF [facility] 18 mL/min/1.73m2 Critically low >=60 [facility] Comment on above: Performed By: #### P T, PTT #### [facility] [address] [address] [address] Gasper Garber EGFR-NON AF [facility] 15 mL/min/1.73m2 Critically low >=60 [facility] Comment on above: Performed By: #### P T, PTT #### [facility] [address] [address] [address] Gasper Garber Globulin (S) [Mass/Vol] 3.2 g/dL Normal [facility] Comment on above: Performed By: #### P T, PTT #### [facility] [address] [place] [address] Dr. Gasper Garber Glucose [Mass/Vol] 158 mg/dL Critically high 74-106 [facility] Comment on above: Performed By: #### P T, PTT #### [facility] [address] [address] [address] Gasper Garber Potassium [Moles/Vol] 4.1 mmol/L Normal 3.5-5.1 [facility] Comment on above: Performed By: #### P T, PTT #### [facility] [address] [place] [address] Dr. Gasper Garber Protein [Mass/Vol] 7.1 g/dL Normal 6.4-8.2 [facility] Comment on above: Performed By: #### P T, PTT #### [facility] [address] [address] [address] Gasper Garber Sodium [Moles/Vol] 137 mmol/L Normal 136-145 [facility] Comment on above: Performed By: #### P T, PTT #### [facility] [address] [address] [address] Gasper Garber Urea nitrogen [Mass/Vol] 48.0 mg/dL Critically high 7.0-18.0 [facility] Comment on above: Performed By: #### P T, PTT #### [facility] [address] [place] [address] Dr. Gasper Garber Urea nitrogen/Creatinine [Mass ratio] 15.6 mg/mg Normal [facility] Comment on above: Performed By: #### P T, PTT #### [facility] [address] [place] [address] Dr. Gasper Garber TROPONIN, HIGH SENSITIVITYon 08-16-2021 HSTROP 15.7 pg/mL Normal 4.0-51.3 [facility] Comment on above: Result Comment: CUT- OFF POINTS HAVE BEEN ESTABLISHED BASED ON THE FOURTH UNIVERSAL DEFINITIONS OF MYOCARDIAL INFARCTION. THE UPPER REFERENCE LIMIT (URL) OF TROPONIN, DEFINED THE 99TH PERCENTILE OF cTnI DISTRIBUTION IN A REFERENCE POPULATION, HAS BEEN CONFIRMED THE DECISION THRESHOLD FOR PA DIAGNOSIS. Performed By: #### P T, PTT #### [facility] [address] [place] [address] Dr. Gasper Garber URINE MICROSCOPIC ONLYon BACTERIA TRACE Abnormal NONE SEEN The [facility] Comment on above: Performed By: #### U ARMICR #### [facility] [address] [place] [address] Dr. Gasper Garber Bacteria identified Cx Nom (U) INDICATED Normal [facility] Comment on above: Performed By: #### U ARMICR #### [facility] [address] [place] [address] Dr. Gasper Garber CAST NONE SEEN Normal NONE SEEN [facility] Comment on above: Performed By: #### U ARMICR #### [facility] [address] [place] [address] Dr. Gasper Garber Crystals LM Nom (Urine sed) NONE SEEN Normal NONE SEEN [facility] Comment on above: Performed By: #### U ARMICR #### [facility] [address] [place] [address] Dr. Gasper Garber Epithelial cells LM Ql (Urine sed) FEW Abnormal NONE SEEN /RARE [facility] Comment on above: Performed By: #### U ARMICR #### [facility] [address] [place] [address] Dr. Gasper Garber MUCOUS NONE SEEN Normal NONE SEEN [facility] Comment on above: Performed By: #### U ARMICR #### [facility] [address] [address] [address] Gasper Garber RBC 0-2 Normal 0-2 [facility] Comment on above: Performed By: #### U ARMICR #### [facility] [address] [address] [address] Gasper Garber WBC 10-20 Abnormal NONE SEEN [facility] Comment on above: Performed By: #### U ARMICR #### [facility] [address] [address] [address] Gasper Garber PROF CHEM 8 (BAS METB)on Anion gap [Moles/Vol] 13.5 mmol/L Normal [facility] Comment on above: Performed By: #### P T, PTT #### [facility] [address] [place] [address] Dr. Gasper Garber Calcium [Mass/Vol] 9.6 mg/dL Normal 8.5-10.1 [facility] Comment on above: Performed By: #### P T, PTT #### [facility] [address] [address] [address] Gasper Garber Chloride [Moles/Vol] 102 mmol/L Normal 98-107 [facility] Comment on above: Performed By: #### P T, PTT #### [facility] [address] [place] [address] Dr. Gasper Garber CO2 [Moles/Vol] 29.0 mmol/L Normal 21.0-32.0 [facility] Comment on above: Performed By: #### P T, PTT #### [facility] [address] [address] [address] Gasper Garber Creatinine [Mass/Vol] 2.05 mg/dL Critically high 0.55-1.02 [facility] Comment on above: Performed By: #### P T, PTT #### [facility] [address] [address] [address] Gasper Garber EGFR-AF [facility] 29 mL/min/1.73m2 Critically low >=60 [facility] Comment on above: Performed By: #### P T, PTT #### [facility] [address] [address] [address] Gasper Garber EGFR-NON AF [facility] 24 mL/min/1.73m2 Critically low >=60 [facility] Comment on above: Performed By: #### P T, PTT #### [facility] [address] [place] [address] Dr. Gasper Garber Glucose [Mass/Vol] 203 mg/dL Critically high 74-106 [facility] Comment on above: Performed By: #### P T, PTT #### [facility] [address] [place] [address] Dr. Gasper Garber Potassium [Moles/Vol] 4.5 mmol/L Normal 3.5-5.1 [facility] Comment on above: Performed By: #### P T, PTT #### [facility] [address] [place] [address] Dr. Gasper Garber Sodium [Moles/Vol] 140 mmol/L Normal 136-145 [facility] Comment on above: Performed By: #### P T, PTT #### [facility] [address] [place] [address] Dr. Gasper Garber Urea nitrogen [Mass/Vol] 34.0 mg/dL Critically high 7.0-18.0 [facility] Comment on above: Performed By: #### P T, PTT #### [facility] [address] [place] [address] Dr. Gasper Garber Urea nitrogen/Creatinine [Mass ratio] 16.6 mg/mg Normal [facility] Comment on above: Performed By: #### P T, PTT #### [facility] [address] [place] [address] Dr. Gasper Garber BNPon 07-27-2021 Natriuretic peptide B (Bld) [Mass/Vol] 1454.0 pg/mL Critically high <=900.0 [facility] Comment on above: Performed By: #### BERNIE MALDONADO #### [facility] [address] [place] [address] Dr. Gasper Garber CBC AUTO DIFFon 07-27-2021 BASO # 0.1 103/ul Normal 0.0-0.1 [facility] Comment on above: Performed By: #### E YANICK UMICRO #### [facility] [address] [place] [address] Dr. Gasper Garber Basophils/100 WBC (Bld) 0.7 % Normal 0.2-2.0 [facility] Comment on above: Performed By: #### E YANICK, UMICRO #### [facility] [address] [place] [address] Dr. Gasper Garber EO # 0.3 103/ul Normal 0.0-0.7 [facility] Comment on above: Performed By: #### Bernice HERNDON, UMICRO #### [facility] [address] [place] [address] Dr. Gasper Garber Eosinophils/100 WBC (Bld) 4.3 % Normal 0.9-7.0 [facility] Comment on above: Performed By: #### Bernice HERNDON UMICRO #### [facility] [address] [place] [address] Dr. Gasper Garber Erythrocyte distribution width (RBC) [Ratio] 13.0 % Normal 11.0-15.0 [facility] Comment on above: Performed By: #### Bernice HERNDON, UMICRO #### [facility] [address] [place] [address] Dr. Gasper Garber Hematocrit (Bld) [Volume fraction] 34.5 % Critically low 36.0-48.0 [facility] Comment on above: Performed By: #### Bernice HERNDON, UMICRO #### [facility] [address] [place] [address] Dr. Gasper Garber Hemoglobin (Bld) [Mass/Vol] 11.0 g/dL Critically low 12.0-16.0 [facility] Comment on above: Performed By: #### Bernice HERNDON, UMICRO #### [facility] [address] [place] [address] Dr. Gasper Garbre IG # 0.02 10e3/ul Normal 0.00-0.03 [facility] Comment on above: Performed By: #### BERNIE MALDONADO #### [facility] [address] [place] [address] Dr. Gasper Garber IG % 0.3 % Normal 0.0-0.5 [facility] Comment on above: Performed By: #### TONI MALDONADORO #### [facility] [address] [place] [address] Dr. Gasper Garber LYMPH # 1.1 103/ul Critically low 1.2-3.8 [facility] Comment on above: Performed By: #### BERNIE MALDONADO #### [facility] [address] [place] [address] Dr. Gasper Garber Lymphocytes/100 WBC (Bld) 14.3 % Critically low 20.5-60.0 [facility] Comment on above: Performed By: #### TONI MALDONADORO #### [facility] [address] [place] [address] Dr. Gasper Garber MANUAL DIFF REQ NO Normal [facility] Comment on above: Performed By: #### BERNIE MALDONADO #### [facility] [address] [place] [address] Dr. Gasper Garber MCH (RBC) [Entitic mass] 30.9 pg Normal 26.7-34.0 [facility] Comment on above: Performed By: #### TONI MALDONADORO #### [facility] [address] [place] [address] Dr. Gasper Garber MCHC (RBC) [Mass/Vol] 31.9 g/dL Normal 29.9-35.2 [facility] Comment on above: Performed By: #### TONI MALDONADORO #### [facility] [address] [place] [address] Dr. Gasper Garber MCV (RBC) [Entitic vol] 96.9 fL Normal 81.0-99.0 [facility] Comment on above: Performed By: #### TONI MALDONADORO #### [facility] [address] [address] [address] Gasper Garber MONO # 0.7 103/ul Normal 0.3-0.8 [facility] Comment on above: Performed By: #### Bernice HERNDON UMICRO #### [facility] [address] [place] [address] Dr. Gasper Garber Monocytes/100 WBC (Bld) 9.3 % Normal 1.7-12.0 [facility] Comment on above: Performed By: #### Bernice HERNDON UMICRO #### [facility] [address] [place] [address] Dr. Gasper Garber NEUT # 5.4 103/ul Normal 1.4-6.5 [facility] Comment on above: Performed By: #### Bernice HERNDON UMICRO #### [facility] [address] [place] [address] Dr. Gasper Garber Neutrophils/100 WBC (Bld) 71.1 % Normal 43.0-75.0 [facility] Comment on above: Performed By: #### Bernice HERNDON ICRO #### [facility] [address] [place] [address] Dr. Gasper Garber Platelet mean volume (Bld) [Entitic vol] 10.2 fL Normal 9.5-13.5 [facility] Comment on above: Performed By: #### Bernice HERNDON ICRO #### [facility] [address] [place] [address] Dr. Gasper Garber PLT 284 103/ul Normal 150-450 [facility] Comment on above: Performed By: #### Bernice HERNDON UMICRO #### [facility] [address] [place] [address] Dr. Gasper Garber RBC 3.56 106/ul Critically low 4.20-5.40 [facility] Comment on above: Performed By: #### Bernice HERNDON UMICRO #### [facility] - [facility] [address] [place] [address] Dr. Gasper Garber WBC 7.6 103/ul Normal 4.0-11.0 [facility] Comment on above: Performed By: #### TONI MALDONADORO #### [facility] [address] [address] [address] Gasper Garber PROF CHEM 8 (BAS METB)on Anion gap [Moles/Vol] 15.3 mmol/L Normal [facility] Comment on above: Performed By: #### TONI MALDONADORO #### [facility] [address] [address] [address] Gasper Garber Calcium [Mass/Vol] 9.1 mg/dL Normal 8.5-10.1 [facility] Comment on above: Performed By: #### TONI MALDONADORO #### [facility] [address] [place] [address] Dr. Gasper Garber Chloride [Moles/Vol] 100 mmol/L Normal 98-107 [facility] Comment on above: Performed By: #### TONI MALDONADORO #### [facility] [address] [place] [address] Dr. Gasper Garber CO2 [Moles/Vol] 26.8 mmol/L Normal 21.0-32.0 [facility] Comment on above: Performed By: #### TONI MALDONADORO #### [facility] [address] [place] [address] Dr. Gasper Garber Creatinine [Mass/Vol] 2.83 mg/dL Critically high 0.55-1.02 [facility] Comment on above: Performed By: #### TONI MALDONADORO #### [facility] [address] [place] [address] Dr. Gasper Garber EGFR-AF [facility] 20 mL/min/1.73m2 Critically low >=60 [facility] Comment on above: Performed By: #### TONI MALDONADORO #### [facility] [address] [place] [address] Dr. Gasper Garber EGFR-NON AF [facility] 16 mL/min/1.73m2 Critically low >=60 [facility] Comment on above: Performed By: #### E RUR, UMICRO #### [facility] [address] [place] [address] Dr. Gasper Garber Glucose [Mass/Vol] 141 mg/dL Critically high 74-106 [facility] Comment on above: Performed By: #### E MINR, UMICRO #### [facility] [address] [place] [address] Dr. Gasper Garber Potassium [Moles/Vol] 4.1 mmol/L Normal 3.5-5.1 [facility] Comment on above: Performed By: #### E YANICK, UMICRO #### [facility] [address] [place] [address] Dr. Gasper Garber Sodium [Moles/Vol] 138 mmol/L Normal 136-145 [facility] Comment on above: Performed By: #### Bernice HERNDON, UMICRO #### [facility] [address] [place] [address] Dr. Gasper Garber Urea nitrogen [Mass/Vol] 48.0 mg/dL Critically high 7.0-18.0 [facility] Comment on above: Performed By: #### Bernice HERNDON, UMICRO #### [facility] [address] [place] [address] Dr. Gasper Garber Urea nitrogen/Creatinine [Mass ratio] 17.0 mg/mg Normal [facility] Comment on above: Performed By: #### Bernice HERNDON, UMICRO #### [facility] [address] [place] [address] Dr. Gasper Garber CULTURE URINEon 07-18-2021 CULTURE [...] F Trimethoprim/Sulfamethoxazo le <=20 S F Normal [facility] Comment on above: Performed By: #### A CETON #### [facility] [address] [place] [address] Dr. Gasper Garber BNPon 07-17-2021 Natriuretic peptide B (Bld) [Mass/Vol] 2592.0 pg/mL Critically high <=900.0 [facility] Comment on above: Performed By: #### U RCX #### [facility] [address] [place] [address] Dr. Gasper Garber CBC AUTO DIFFon 07-17-2021 BASO # 0.0 103/ul Normal 0.0-0.1 [facility] Comment on above: Performed By: #### L ACT #### [facility] [address] [place] [address] Dr. Gasper Garber Basophils/100 WBC (Bld) 0.4 % Normal 0.2-2.0 [facility] Comment on above: Performed By: #### L ACT #### [facility] [address] [place] [address] Dr. Gasper Garber EO # 0.3 103/ul Normal 0.0-0.7 [facility] Comment on above: Performed By: #### L ACT #### [facility] [address] [place] [address] Dr. Gasper Garber Eosinophils/100 WBC (Bld) 4.3 % Normal 0.9-7.0 [facility] Comment on above: Performed By: #### L ACT #### [facility] [address] [place] [address] Dr. Gasper Garber Erythrocyte distribution width (RBC) [Ratio] 12.5 % Normal 11.0-15.0 [facility] Comment on above: Performed By: #### L ACT #### [facility] [address] [place] [address] Dr. Gasper Garber Hematocrit (Bld) [Volume fraction] 30.3 % Critically low 36.0-48.0 [facility] Comment on above: Performed By: #### L ACT #### [facility] [address] [address] [address] Gasper Garber Hemoglobin (Bld) [Mass/Vol] 9.8 g/dL Critically low 12.0-16.0 [facility] Comment on above: Performed By: #### L ACT #### [facility] [address] [address] [address] Gasper Garber IG # 0.02 10e3/ul Normal 0.00-0.03 [facility] Comment on above: Performed By: #### L ACT #### [facility] [address] [address] [address] Gasper Garber IG % 0.3 % Normal 0.0-0.5 [facility] Comment on above: Performed By: #### L ACT #### [facility] [address] [place] [address] Dr. Gasper Garber LYMPH # 1.5 103/ul Normal 1.2-3.8 [facility] Comment on above: Performed By: #### L ACT #### [facility] [address] [place] [address] Dr. Gasper Garber Lymphocytes/100 WBC (Bld) 19.8 % Critically low 20.5-60.0 [facility] Comment on above: Performed By: #### L ACT #### [facility] [address] [place] [address] Dr. Gasper Garber MANUAL DIFF REQ NO Normal [facility] Comment on above: Performed By: #### L ACT #### [facility] [address] [place] [address] Dr. Gasper Garber MCH (RBC) [Entitic mass] 31.3 pg Normal 26.7-34.0 [facility] Comment on above: Performed By: #### L ACT #### [facility] [address] [place] [address] Dr. Gasper Garber MCHC (RBC) [Mass/Vol] 32.3 g/dL Normal 29.9-35.2 [facility] Comment on above: Performed By: #### L ACT #### [facility] [address] [address] [address] Gasper Garber MCV (RBC) [Entitic vol] 96.8 fL Normal 81.0-99.0 [facility] Comment on above: Performed By: #### L ACT #### [facility] [address] [address] [address] Gasper Garber MONO # 0.9 103/ul Critically high 0.3-0.8 [facility] Comment on above: Performed By: #### L ACT #### [facility] [address] [address] [address] Gasper Garber Monocytes/100 WBC (Bld) 11.7 % Normal 1.7-12.0 [facility] Comment on above: Performed By: #### L ACT #### [facility] [address] [place] [address] Dr. Gasper Garber NEUT # 4.8 103/ul Normal 1.4-6.5 [facility] Comment on above: Performed By: #### L ACT #### [facility] [address] [place] [address] Dr. Gasper Garber Neutrophils/100 WBC (Bld) 63.5 % Normal 43.0-75.0 [facility] Comment on above: Performed By: #### L ACT #### [facility] [address] [place] [address] Dr. Gasper Garber Platelet mean volume (Bld) [Entitic vol] 10.9 fL Normal 9.5-13.5 [facility] Comment on above: Performed By: #### L ACT #### [facility] [address] [place] [address] Dr. Gasper Garber PLT 193 103/ul Normal 150-450 [facility] Comment on above: Performed By: #### L ACT #### [facility] [id number] Gasper Garber RBC 3.13 106/ul Critically low 4.20-5.40 [facility] Comment on above: Performed By: #### L ACT #### [facility] [address] [address] [address] Gasper Garber WBC 7.5 103/ul Normal 4.0-11.0 [facility] Comment on above: Performed By: #### L ACT #### [facility] [address] [place] [address] Dr. Gasper Garber POINT OF CARE GLUCOSEon 06-20 Glucose [Mass/Vol] 244 mg/dL Critically high 74-106 [facility] Comment on above: Performed By: #### L ACT #### [facility] [address] [place] [address] Dr. Gasper Garber Glucose [Mass/Vol] 151 mg/dL Critically high 74-106 [facility] Comment on above: Performed By: #### E BERNIE HERNDON #### [facility] [address] [place] [address] Dr. Gasper Garber PROF 14(COMP METB)on 022 Albumin [Mass/Vol] 2.9 g/dL Critically low 3.4-5.0 [facility] Comment on above: Performed By: #### U RCX #### [facility] [address] [place] [address] Dr. Gasper Garber Albumin/Globulin [Mass ratio] 1.0 {ratio} Normal [facility] Comment on above: Performed By: #### U RCX #### [facility] [address] [place] [address] Dr. Gasper Garber ALP [Catalytic activity/Vol] 63 U/L Normal 46-116 [facility] Comment on above: Performed By: #### U RCX #### [facility] [address] [place] [address] Dr. Gasper Garber ALT [Catalytic activity/Vol] 33 U/L Normal 14-59 [facility] Comment on above: Performed By: #### U RCX #### [facility] [address] [place] [address] Dr. Gasper Garber Anion gap [Moles/Vol] 13.1 mmol/L Normal [facility] Comment on above: Performed By: #### U RCX #### [facility] [address] [address] [address] Gasper Garber AST [Catalytic activity/Vol] 30 U/L Normal 15-37 [facility] Comment on above: Performed By: #### U RCX #### [facility] [address] [address] [address] Gasper Garber Bilirubin [Mass/Vol] 0.3 mg/dL Normal 0.2-1.0 [facility] Comment on above: Performed By: #### U RCX #### [facility] [address] [address] [address] Gasper Garber Calcium [Mass/Vol] 8.7 mg/dL Normal 8.5-10.1 [facility] Comment on above: Performed By: #### U RCX #### [facility] [address] [address] [address] Gasper Garber Chloride [Moles/Vol] 109 mmol/L Critically high 98-107 [facility] Comment on above: Performed By: #### U RCX #### [facility] [address] [address] [address] Gasper Garber CO2 [Moles/Vol] 24.5 mmol/L Normal 21.0-32.0 [facility] Comment on above: Performed By: #### U RCX #### [facility] [address] [place] [address] Dr. Gasper Garber Creatinine [Mass/Vol] 1.33 mg/dL Critically high 0.55-1.02 [facility] Comment on above: Performed By: #### U RCX #### [facility] [address] [address] [address] aGsper Garber EGFR-AF [facility] 47 mL/min/1.73m2 Critically low >=60 [facility] Comment on above: Performed By: #### U RCX #### [facility] [address] [address] [address] Gasper Garber EGFR-NON AF [facility] 39 mL/min/1.73m2 Critically low >=60 [facility] Comment on above: Performed By: #### U RCX #### [facility] [address] [address] [address] Gasper Garber Globulin (S) [Mass/Vol] 3.0 g/dL Normal [facility] Comment on above: Performed By: #### U RCX #### [facility] [address] [place] [address] Dr. Gasper Garber Glucose [Mass/Vol] 142 mg/dL Critically high 74-106 [facility] Comment on above: Performed By: #### U RCX #### [facility] [address] [address] [address] Gasper Garber Potassium [Moles/Vol] 3.6 mmol/L Normal 3.5-5.1 [facility] Comment on above: Performed By: #### U RCX #### [facility] [address] [place] [address] Dr. Gasper Garber Protein [Mass/Vol] 5.9 g/dL Critically low 6.4-8.2 [facility] Comment on above: Performed By: #### U RCX #### [facility] [address] [place] [address] Dr. Gasper Garber Sodium [Moles/Vol] 143 mmol/L Normal 136-145 [facility] Comment on above: Performed By: #### U RCX #### [facility] [address] [place] [address] Dr. Gasper Garber Urea nitrogen [Mass/Vol] 25.0 mg/dL Critically high 7.0-18.0 [facility] Comment on above: Performed By: #### U RCX #### [facility] [address] [place] [address] Dr. Gasper Garber Urea nitrogen/Creatinine [Mass ratio] 18.8 mg/mg Normal [facility] Comment on above: Performed By: #### U RCX #### [facility] [address] [place] [address] Dr. Gasper Garber BNPon 07-16-2021 Natriuretic peptide B (Bld) [Mass/Vol] 761.0 pg/mL Normal <=900.0 [facility] Comment on above: Performed By: #### P T, PTT #### [facility] [address] [place] [address] Dr. Gasper Garber CBC AUTO DIFFon 07-16-2021 BASO # 0.1 103/ul Normal 0.0-0.1 [facility] Comment on above: Performed By: #### L ACT #### [facility] [address] [place] [address] Dr. Gasper Garber Basophils/100 WBC (Bld) 0.6 % Normal 0.2-2.0 [facility] Comment on above: Performed By: #### L ACT #### [facility] [address] [place] [address] Dr. Gasper Garber EO # 0.2 103/ul Normal 0.0-0.7 [facility] Comment on above: Performed By: #### L ACT #### [facility] [address] [place] [address] Dr. Gasper Garber Performed By: #### P T, PTT #### [facility] [address] [place] [address] Dr. Gasper Garber Eosinophils/100 WBC (Bld) 2.3 % Normal 0.9-7.0 [facility] Comment on above: Performed By: #### L ACT #### [facility] [address] [place] [address] Dr. Gasper Garber Erythrocyte distribution width (RBC) [Ratio] 12.3 % Normal 11.0-15.0 [facility] Comment on above: Performed By: #### L ACT #### [facility] [address] [place] [address] Dr. Gasper Garber Hematocrit (Bld) [Volume fraction] 32.3 % Critically low 36.0-48.0 [facility] Comment on above: Performed By: #### L ACT #### [facility] [address] [place] [address] Dr. Gasper Garber Hemoglobin (Bld) [Mass/Vol] 10.3 g/dL Critically low 12.0-16.0 [facility] Comment on above: Performed By: #### L ACT #### [facility] [address] [place] [address] Dr. Gasper Garber IG # 0.01 10e3/ul Normal 0.00-0.03 [facility] Comment on above: Performed By: #### L ACT #### [facility] [address] [place] [address] Dr. Gasper Garber IG % 0.1 % Normal 0.0-0.5 [facility] Comment on above: Performed By: #### L ACT #### [facility] [address] [place] [address] Dr. Gasper Garber LYMPH # 1.1 103/ul Critically low 1.2-3.8 [facility] Comment on above: Performed By: #### L ACT #### [facility] [address] [place] [address] Dr. Gasper Garber Lymphocytes/100 WBC (Bld) 12.2 % Critically low 20.5-60.0 [facility] Comment on above: Performed By: #### L ACT #### [facility] [address] [place] [address] Dr. Gasper Garber MANUAL DIFF REQ NO Normal [facility] Comment on above: Performed By: #### L ACT #### [facility] [address] [place] [address] Dr. Gasper Garber Performed By: #### P T, PTT #### [facility] [address] [place] [address] Dr. Gasper Garber MCH (RBC) [Entitic mass] 30.8 pg Normal 26.7-34.0 [facility] Comment on above: Performed By: #### L ACT #### [facility] [address] [place] [address] Dr. Gasper Garber MCHC (RBC) [Mass/Vol] 31.9 g/dL Normal 29.9-35.2 [facility] Comment on above: Performed By: #### L ACT #### [facility] [address] [place] [address] Dr. Gasper Garber MCV (RBC) [Entitic vol] 96.7 fL Normal 81.0-99.0 [facility] Comment on above: Performed By: #### L ACT #### [facility] [address] [address] [address] Gasper Garber MONO # 0.8 103/ul Normal 0.3-0.8 [facility] Comment on above: Performed By: #### L ACT #### [facility] [address] [address] [address] Gasper Garber Monocytes/100 WBC (Bld) 8.8 % Normal 1.7-12.0 [facility] Comment on above: Performed By: #### L ACT #### [facility] [address] [address] [address] Gasper Garber NEUT # 6.5 103/ul Normal 1.4-6.5 [facility] Comment on above: Performed By: #### L ACT #### [facility] [address] [address] [address] Gasper Garber Neutrophils/100 WBC (Bld) 76.0 % Critically high 43.0-75.0 [facility] Comment on above: Performed By: #### L ACT #### [facility] [address] [address] [address] Gasper Garber Platelet mean volume (Bld) [Entitic vol] 10.6 fL Normal 9.5-13.5 [facility] Comment on above: Performed By: #### L ACT #### [facility] [address] [address] [address] Gasper Garber PLT 214 103/ul Normal 150-450 [facility] Comment on above: Performed By: #### L ACT #### [facility] [address] [address] [address] Gasper Garber RBC 3.34 106/ul Critically low 4.20-5.40 [facility] Comment on above: Performed By: #### L ACT #### [facility] [address] [address] [address] Gasper Garber WBC 8.6 103/ul Normal 4.0-11.0 [facility] Comment on above: Performed By: #### L ACT #### [facility] [address] [place] [address] Dr. Gasper Garber BASO # 0.0 103/ul Normal 0.0-0.1 [facility] Comment on above: Performed By: #### P T, PTT #### [facility] [address] [place] [address] Dr. Gasper Garber Basophils/100 WBC (Bld) 0.4 % Normal 0.2-2.0 [facility] Comment on above: Performed By: #### P T, PTT #### [facility] [address] [place] [address] Dr. Gasper Garber Eosinophils/100 WBC (Bld) 2.5 % Normal 0.9-7.0 [facility] Comment on above: Performed By: #### P T, PTT #### [facility] [address] [place] [address] Dr. Gasper Garber Erythrocyte distribution width (RBC) [Ratio] 12.4 % Normal 11.0-15.0 [facility] Comment on above: Performed By: #### P T, PTT #### [facility] [address] [place] [address] Dr. Gasper Garber Hematocrit (Bld) [Volume fraction] 29.3 % Critically low 36.0-48.0 [facility] Comment on above: Performed By: #### P T, PTT #### [facility] [address] [place] [address] Dr. Gasper Garber Hemoglobin (Bld) [Mass/Vol] 9.5 g/dL Critically low 12.0-16.0 [facility] Comment on above: Performed By: #### P T, PTT #### [facility] [address] [place] [address] Dr. Gasper Garber IG # 0.02 10e3/ul Normal 0.00-0.03 [facility] Comment on above: Performed By: #### P T, PTT #### [facility] [address] [place] [address] Dr. Gasper Garber IG % 0.2 % Normal 0.0-0.5 [facility] Comment on above: Performed By: #### P T, PTT #### [facility] [address] [place] [address] Dr. Gasper Garber LYMPH # 1.3 103/ul Normal 1.2-3.8 [facility] Comment on above: Performed By: #### P T, PTT #### [facility] [address] [place] [address] Dr. Gasper Garber Lymphocytes/100 WBC (Bld) 16.4 % Critically low 20.5-60.0 [facility] Comment on above: Performed By: #### P T, PTT #### [facility] [address] [place] [address] Dr. Gasper Garber MCH (RBC) [Entitic mass] 31.3 pg Normal 26.7-34.0 [facility] Comment on above: Performed By: #### P T, PTT #### [facility] [address] [place] [address] Dr. Gasper Garber MCHC (RBC) [Mass/Vol] 32.4 g/dL Normal 29.9-35.2 [facility] Comment on above: Performed By: #### P T, PTT #### [facility] [address] [place] [address] Dr. Gasper Garber MCV (RBC) [Entitic vol] 96.4 fL Normal 81.0-99.0 [facility] Comment on above: Performed By: #### P T, PTT #### [facility] [address] [place] [address] Dr. Gasper Garber MONO # 0.9 103/ul Critically high 0.3-0.8 [facility] Comment on above: Performed By: #### P T, PTT #### [facility] [address] [place] [address] Dr. Gasper Garber Monocytes/100 WBC (Bld) 10.5 % Normal 1.7-12.0 [facility] Comment on above: Performed By: #### P T, PTT #### [facility] [facility] [address] [place] [address] Dr. Gasper Garber NEUT # 5.7 103/ul Normal 1.4-6.5 [facility] Comment on above: Performed By: #### P T, PTT #### [facility] [address] [place] [address] Dr. Gasper Garber Neutrophils/100 WBC (Bld) 70.0 % Normal 43.0-75.0 [facility] Comment on above: Performed By: #### P T, PTT #### [facility] [address] [place] [address] Dr. Gasper Garber Platelet mean volume (Bld) [Entitic vol] 10.9 fL Normal 9.5-13.5 [facility] Comment on above: Performed By: #### P T, PTT #### [facility] [address] [place] [address] Dr. Gasper Garber PLT 203 103/ul Normal 150-450 [facility] Comment on above: Performed By: #### P T, PTT #### [facility] [address] [place] [address] Dr. Gasper Garber RBC 3.04 106/ul Critically low 4.20-5.40 [facility] Comment on above: Performed By: #### P T, PTT #### [facility] [address] [place] [address] Dr. Gasper Garber WBC 8.2 103/ul Normal 4.0-11.0 [facility] Comment on above: Performed By: #### P T, PTT #### [facility] [address] [place] [address] Dr. Gasper Garber CULTURE BLOODon 07-16-2021 Microscopic examination of blood, culture Culture Observations: NO GROWTH AT 5 DAYS. Normal [facility] Comment on above: Performed By: #### B [id number] #### [facility] [address] [place] [address] Dr. Gasper Garber Microscopic examination of blood, culture Culture Observations: NO GROWTH AT 5 DAYS. [facility] Comment on above: Performed By: #### A CETON #### [facility] [address] [place] [address] Dr. Gasper Garber POINT OF CARE GLUCOSEon 05-2022 Glucose [Mass/Vol] 155 mg/dL Critically high 74-106 [facility] Comment on above: Performed By: #### P T, PTT #### [facility] [address] [address] [address] Gasper Garber Glucose [Mass/Vol] 165 mg/dL Critically high 74-106 [facility] Comment on above: Performed By: #### P OCGLUC #### [facility] [address] [address] [address] Gasper Garber Glucose [Mass/Vol] 232 mg/dL Critically high 74-106 [facility] Comment on above: Performed By: #### E BERNIE HERNDON #### [facility] [address] [place] [address] Dr. Gasper Garber PROF 14(COMP METB)on 022 Albumin [Mass/Vol] 2.9 g/dL Critically low 3.4-5.0 [facility] Comment on above: Performed By: #### P T, PTT #### [facility] [address] [place] [address] Dr. Gasper Garber Albumin/Globulin [Mass ratio] 1.0 {ratio} [facility] Comment on above: Performed By: #### P T, PTT #### [facility] [address] [place] [address] Dr. Gasper Garber ALP [Catalytic activity/Vol] 62 U/L Normal 46-116 [facility] Comment on above: Performed By: #### P T, PTT #### [facility] [address] [place] [address] Dr. Gasper Garber ALT [Catalytic activity/Vol] 34 U/L Normal 14-59 [facility] Comment on above: Performed By: #### P T, PTT #### [facility] [address] [place] [address] Dr. Gasper Garber Anion gap [Moles/Vol] 10.8 mmol/L Normal [facility] Comment on above: Performed By: #### P T, PTT #### [facility] [address] [address] [address] Gasper Garber AST [Catalytic activity/Vol] 14 U/L Critically low 15-37 [facility] Comment on above: Performed By: #### P T, PTT #### [facility] [address] [place] [address] Dr. Gasper Garber Bilirubin [Mass/Vol] 0.4 mg/dL Normal 0.2-1.0 [facility] Comment on above: Performed By: #### P T, PTT #### [facility] [address] [place] [address] Dr. Gasper Garber Calcium [Mass/Vol] 8.4 mg/dL Critically low 8.5-10.1 [facility] Comment on above: Performed By: #### P T, PTT #### [facility] [address] [place] [address] Dr. Gasper Garber Chloride [Moles/Vol] 105 mmol/L Normal 98-107 [facility] Comment on above: Performed By: #### P T, PTT #### [facility] [address] [place] [address] Dr. Gasper Garber CO2 [Moles/Vol] 26.3 mmol/L Normal 21.0-32.0 [facility] Comment on above: Performed By: #### P T, PTT #### [facility] [address] [place] [address] Dr. Gasper Garber Creatinine [Mass/Vol] 2.20 mg/dL Critically high 0.55-1.02 [facility] Comment on above: Performed By: #### P T, PTT #### [facility] [address] [place] [address] Dr. Gasper Garber EGFR-AF [facility] 26 mL/min/1.73m2 Critically low >=60 [facility] Comment on above: Performed By: #### P T, PTT #### [facility] [address] [place] [address] Dr. Gasper Garber EGFR-NON AF [facility] 22 mL/min/1.73m2 Critically low >=60 [facility] Comment on above: Performed By: #### P T, PTT #### [facility] [address] [place] [address] Dr. Gasper Garber Globulin (S) [Mass/Vol] 2.9 g/dL Normal [facility] Comment on above: Performed By: #### P T, PTT #### [facility] [address] [place] [address] Dr. Gasper Garber Glucose [Mass/Vol] 167 mg/dL Critically high 74-106 [facility] Comment on above: Performed By: #### P T, PTT #### [facility] [address] [place] [address] Dr. Gasper Garber Potassium [Moles/Vol] 3.1 mmol/L Critically low 3.5-5.1 [facility] Comment on above: Performed By: #### P T, PTT #### [facility] [address] [place] [address] Dr. Gasper Garber Protein [Mass/Vol] 5.8 g/dL Critically low 6.4-8.2 [facility] Comment on above: Performed By: #### P T, PTT #### [facility] [address] [place] [address] Dr. Gasper Garber Sodium [Moles/Vol] 139 mmol/L Normal 136-145 [facility] Comment on above: Performed By: #### P T, PTT #### [facility] [address] [place] [address] Dr. Gasper Garber Urea nitrogen [Mass/Vol] 41.0 mg/dL Critically high 7.0-18.0 [facility] Comment on above: Performed By: #### P T, PTT #### [facility] [address] [place] [address] Dr. Gasper Garber Urea nitrogen/Creatinine [Mass ratio] 18.6 mg/mg Normal [facility] Comment on above: Performed By: #### P T, PTT #### [facility] [address] [place] [address] Dr. Gasper Garber CBC AUTO DIFFon 07-15-2021 BASO # 0.0 103/ul Normal 0.0-0.1 [facility] Comment on above: Performed By: #### P T, PTT #### [facility] [address] [place] [address] Dr. Gasper Garber Basophils/100 WBC (Bld) 0.4 % Normal 0.2-2.0 [facility] Comment on above: Performed By: #### P T, PTT #### [facility] [address] [place] [address] Dr. Gasper Garber EO # 0.2 103/ul Normal 0.0-0.7 [facility] Comment on above: Performed By: #### P T, PTT #### [facility] [address] [place] [address] Dr. Gasper Garber Eosinophils/100 WBC (Bld) 1.6 % Normal 0.9-7.0 [facility] Comment on above: Performed By: #### P T, PTT #### [facility] [address] [place] [address] Dr. Gasper Garber Erythrocyte distribution width (RBC) [Ratio] 12.4 % Normal 11.0-15.0 [facility] Comment on above: Performed By: #### P T, PTT #### [facility] [address] [place] [address] Dr. Gasper Garber Hematocrit (Bld) [Volume fraction] 34.7 % Critically low 36.0-48.0 [facility] Comment on above: Performed By: #### P T, PTT #### [facility] [address] [place] [address] Dr. Gasper Garber Hemoglobin (Bld) [Mass/Vol] 11.4 g/dL Critically low 12.0-16.0 [facility] Comment on above: Performed By: #### P T, PTT #### [facility] [address] [place] [address] Dr. Gasper Garber IG # 0.02 10e3/ul Normal 0.00-0.03 [facility] Comment on above: Performed By: #### P T, PTT #### [facility] [address] [place] [address] Dr. Gasper Garber IG % 0.2 % Normal 0.0-0.5 [facility] Comment on above: Performed By: #### P T, PTT #### [facility] [address] [place] [address] Dr. Gasper Garber LYMPH # 1.6 103/ul Normal 1.2-3.8 [facility] Comment on above: Performed By: #### P T, PTT #### [facility] [address] [place] [address] Dr. Gasper Garber Lymphocytes/100 WBC (Bld) 17.7 % Critically low 20.5-60.0 [facility] Comment on above: Performed By: #### P T, PTT #### [facility] [address] [place] [address] Dr. Gasper Garber MANUAL DIFF REQ NO Normal [facility] Comment on above: Performed By: #### P T, PTT #### [facility] [address] [place] [address] Dr. Gasper Garber MCH (RBC) [Entitic mass] 31.1 pg Normal 26.7-34.0 [facility] Comment on above: Performed By: #### P T, PTT #### [facility] [address] [place] [address] Dr. Gasper Garber MCHC (RBC) [Mass/Vol] 32.9 g/dL Normal 29.9-35.2 [facility] Comment on above: Performed By: #### P T, PTT #### [facility] [address] [place] [address] Dr. Gasper Garber MCV (RBC) [Entitic vol] 94.8 fL Normal 81.0-99.0 [facility] Comment on above: Performed By: #### P T, PTT #### [facility] [address] [place] [address] Dr. Gasper Garber MONO # 1.0 103/ul Critically high 0.3-0.8 [facility] Comment on above: Performed By: #### P T, PTT #### [facility] [address] [place] [address] Dr. Gasper Garber Monocytes/100 WBC (Bld) 10.3 % Normal 1.7-12.0 [facility] Comment on above: Performed By: #### P T, PTT #### [facility] [address] [place] [address] Dr. Gasper Garber NEUT # 6.4 103/ul Normal 1.4-6.5 [facility] Comment on above: Performed By: #### P T, PTT #### [facility] [address] [place] [address] Dr. Gasper Garber Neutrophils/100 WBC (Bld) 69.8 % Normal 43.0-75.0 [facility] Comment on above: Performed By: #### P T, PTT #### [facility] [address] [place] [address] Dr. Gasper Garber Platelet mean volume (Bld) [Entitic vol] 10.4 fL Normal 9.5-13.5 [facility] Comment on above: Performed By: #### P T, PTT #### [facility] [address] [place] [address] Dr. Gasper Garber PLT 269 103/ul Normal 150-450 [facility] Comment on above: Performed By: #### P T, PTT #### [facility] [address] [place] [address] Dr. Gasper Garber RBC 3.66 106/ul Critically low 4.20-5.40 [facility] Comment on above: Performed By: #### P T, PTT #### [facility] [address] [place] [address] Dr. Gasper Garber WBC 9.2 103/ul Normal 4.0-11.0 [facility] Comment on above: Performed By: #### P T, PTT #### [facility] [address] [place] [address] ABD/PELVIS WO CONon [...] NASRIN CHIU Date: 2021-07-15 18:16 Normal [facility] Covid-19 PCR (CVDTB)on 06-20 SARS-CoV-2 (COVID-19) RNA ANA LUISA+probe Ql (Unsp spec) Not detected Normal NOT DETECTED [facility] Comment on above: Result Comment: When diagnostic [...] for this test is supported by the [place] [employer] Service's declaration that [...] used). Performed By: #### L ACT #### [facility] [address] [place] [address] Dr. Gasper JENKINS URINE PROFILEon 2 Bilirubin Ql (U) Negative Normal NEGATIVE [facility] Comment on above: Performed By: #### Bernice HERNDON UMICRO #### [facility] [address] [place] [address] Dr. Gasper Garber Clarity (U) CLEAR Normal CLEAR [facility] Comment on above: Performed By: #### E YANICK UMICRO #### [facility] [address] [address] [address] Gasper Garber Color (U) LT. YELLOW Normal YELLOW [facility] Comment on above: Performed By: #### E YANICK UMICRO #### [facility] [address] [place] [address] Dr. Gasper RIVAS A micrscopic examina tion will be performed if indicated. Normal [facility] Comment on above: Performed By: #### Bernice HERNDON UMICRO #### [facility] [address] [place] [address] Dr. Gasper Garber Glucose Ql (U) Negative Normal NEGATIVE [facility] Comment on above: Performed By: #### Bernice HERNDON UMICRO #### [facility] [address] [place] [address] Dr. Gasper Garber Hemoglobin Ql (U) Negative Normal NEGATIVE [facility] Comment on above: Performed By: #### Bernice HERNDON UMICRO #### [facility] [address] [place] [address] Dr. Gasper Garber Ketones Ql (U) Negative Normal NEGATIVE [facility] Comment on above: Performed By: #### Bernice HERNDON UMICRO #### [facility] [address] [place] [address] Dr. Gasper Garber LEUKOCYTES Negative Normal NEGATIVE [facility] Comment on above: Performed By: #### Bernice HERNDON UMICRO #### [facility] [address] [place] [address] Dr. Gasper Garber Nitrite Ql (U) Negative Normal NEGATIVE [facility] Comment on above: Performed By: #### Bernice HERNDON UMICRO #### [facility] [address] [place] [address] Dr. Gasper Garber pH (U) 5.5 [pH] Normal 5-9 [facility] Comment on above: Performed By: #### BERNIE MALDONADO #### [facility] [address] [place] [address] Dr. Gasper Garber SPEC GRAVITY 1.020 Normal 1.005-<=1.0 25 [facility] Comment on above: Performed By: #### TONI MALDONADORO #### [facility] [address] [place] [address] Dr. Gasper Garber UA PROTEIN TRACE Normal NEGATIVE/ TRACE [facility] Comment on above: Performed By: #### BERNIE MALDONADO #### [facility] [address] [place] [address] Dr. Gasper Garber UR MICRO IND INDICATED Normal [facility] Comment on above: Performed By: #### BERNIE MALDONADO #### [facility] [address] [place] [address] Dr. Gasper Garber Urobilinogen Qn (U) 0.2 {Kaushik'U}/dL Normal 0.2 - 1. 0 [facility] Comment on above: Performed By: #### TONI MALDONADORO #### [facility] [address] [place] [address] Dr. Gasper Garber FREE T3on 07-15-2021 FREE T3 2.45 pg/mlL Normal 2.18-3.98 [facility] Comment on above: Performed By: #### P T, PTT #### [facility] [address] [place] [address] Dr. Gasper Garber FREE T4on 07-15-2021 Free T4 [Mass/Vol] 1.19 ng/dL Normal 0.76-1.46 [facility] Comment on above: Performed By: #### A CETON #### [facility] [address] [place] [address] Dr. Gasper Garber LACTATE/LACTIC ACIDon 2021 Lactate [Moles/Vol] 2.0 mmol/L Critically high 0.4-1.9 [facility] Comment on above: Performed By: #### L ACT #### [facility] [address] [place] [address] Dr. Gasper Garber Lactate [Moles/Vol] 4.0 mmol/L Critically high 0.4-1.9 [facility] Comment on above: Performed By: #### L ACT #### [facility] [address] [place] [address] Dr. Gasper Garber LIPASEon 07-15-2021 Lipase [Catalytic activity/Vol] 93.0 U/L Normal 73.0-393.0 [facility] Comment on above: Performed By: #### A CETON #### [facility] [address] [place] [address] Dr. Gasper Garber POINT OF CARE GLUCOSEon 06-20 Glucose [Mass/Vol] 200 mg/dL Critically high 74-106 [facility] Comment on above: Performed By: #### P T, PTT #### [facility] [address] [place] [address] Dr. Gasper Garber PROF 14(COMP METB)on 022 Albumin [Mass/Vol] 3.5 g/dL Normal 3.4-5.0 [facility] Comment on above: Performed By: #### A CETON #### [facility] [address] [place] [address] Dr. Gasper Garber Albumin/Globulin [Mass ratio] 1.0 {ratio} Normal [facility] Comment on above: Performed By: #### A CETON #### [facility] [address] [place] [address] Dr. Gasper Garber ALP [Catalytic activity/Vol] 81 U/L Normal 46-116 [facility] Comment on above: Performed By: #### A CETON #### [facility] [address] [place] [address] Dr. Gasper Garber ALT [Catalytic activity/Vol] 43 U/L Normal 14-59 [facility] Comment on above: Performed By: #### A CETON #### [facility] [address] [place] [address] Dr. Gasper Garber Anion gap [Moles/Vol] 13.6 mmol/L Normal [facility] Comment on above: Performed By: #### A CETON #### [facility] [address] [address] [address] Gasper Garber AST [Catalytic activity/Vol] 19 U/L Normal 15-37 [facility] Comment on above: Performed By: #### A CETON #### [facility] [address] [address] [address] Gasper Garber Bilirubin [Mass/Vol] 0.6 mg/dL Normal 0.2-1.0 [facility] Comment on above: Performed By: #### A CETON #### [facility] [address] [address] [address] Gasper Garber Calcium [Mass/Vol] 8.9 mg/dL Normal 8.5-10.1 [facility] Comment on above: Performed By: #### A CETON #### [facility] [address] [address] [address] Gasper Garber Chloride [Moles/Vol] 103 mmol/L Normal 98-107 [facility] Comment on above: Performed By: #### A CETON #### [facility] [address] [address] [address] Gasper Garber CO2 [Moles/Vol] 25.9 mmol/L Normal 21.0-32.0 [facility] Comment on above: Performed By: #### A CETON #### [facility] [address] [address] [address] Gasper Garber Creatinine [Mass/Vol] 2.91 mg/dL Critically high 0.55-1.02 [facility] Comment on above: Performed By: #### A CETON #### [facility] [address] [place] [address] Dr. Gasper Garber EGFR-AF [facility] 19 mL/min/1.73m2 Critically low >=60 [facility] Comment on above: Performed By: #### A CETON #### [facility] [address] [place] [address] Dr. Gasper Garber EGFR-NON AF [facility] 16 mL/min/1.73m2 Critically low >=60 [facility] Comment on above: Performed By: #### A CETON #### [facility] [address] [address] [address] Gasper Garber Globulin (S) [Mass/Vol] 3.5 g/dL Normal [facility] Comment on above: Performed By: #### A CETON #### [facility] [address] [address] [address] Gasper Garber Glucose [Mass/Vol] 201 mg/dL Critically high 74-106 [facility] Comment on above: Performed By: #### A CETON #### [facility] [address] [place] [address] Dr. Gasper Garber Potassium [Moles/Vol] 3.5 mmol/L Normal 3.5-5.1 [facility] Comment on above: Performed By: #### A CETON #### [facility] [address] [address] [address] Gasper Garber Protein [Mass/Vol] 7.0 g/dL Normal 6.4-8.2 [facility] Comment on above: Performed By: #### A CETON #### [facility] [address] [place] [address] Dr. Gasper Garber Sodium [Moles/Vol] 139 mmol/L Normal 136-145 [facility] Comment on above: Performed By: #### A CETON #### [facility] [address] [address] [address] Gasper Garber Urea nitrogen [Mass/Vol] 46.0 mg/dL Critically high 7.0-18.0 [facility] Comment on above: Performed By: #### A CETON #### [facility] [address] [place] [address] Dr. Gasper Garber Urea nitrogen/Creatinine [Mass ratio] 15.8 mg/mg Normal [facility] Comment on above: Performed By: #### A CETON #### [facility] [address] [place] [address] Dr. Gasper Garber PROTIMEon 07-15-2021 INR Coag (PPP) [Relative time] 1.03 {INR} Normal [facility] Comment on above: Performed By: #### P T, PTT #### [facility] [address] [place] [address] Dr. Gasper Garber INR GUIDELINES SEE BELOW Normal [facility] Comment on above: Result Comment: JESUS RED INR: 2.0 - 3.0 CONDITIONS NOT LISTED BELOW 2.5 - 3.5 FOR PROSTHETIC HEART VALVE REPLACEMENT 2.5 - 3.5 RECURRENT THROMBOSIS Performed By: #### P T, PTT #### [facility] Laboratory [address] [place] [address] Dr. Gasper Garber PT Coag (PPP) [Time] 11.1 s Normal 9.0-11.6 [facility] Comment on above: Performed By: #### P T, PTT #### [facility] Laboratory [address] [place] [address] Dr. Gasper Garber PTTon 07-15-2021 aPTT Coag (Bld) [Time] 24.2 s Normal 22.3-36.2 [facility] Comment on above: Performed By: #### P T, PTT #### [facility] Laboratory [address] [place] [address] Dr. Gasper Garber TROPONIN, HIGH SENSITIVITYon 07-15-2021 HSTROP 23.9 pg/mL Normal 4.0-51.3 [facility] Comment on above: Result Comment: CUT- OFF POINTS HAVE BEEN ESTABLISHED BASED ON THE FOURTH UNIVERSAL DEFINITIONS OF MYOCARDIAL INFARCTION. THE UPPER REFERENCE LIMIT (URL) OF TROPONIN, DEFINED THE 99TH PERCENTILE OF cTnI DISTRIBUTION IN A REFERENCE POPULATION, HAS BEEN CONFIRMED THE DECISION THRESHOLD FOR PA DIAGNOSIS. Performed By: #### L ACT #### [facility] Laboratory [address] [place] [address] Dr. Gasper Garber TSHon 07-15-2021 TSH 3.864 uIU/mL Critically high 0.358-3.740 [facility] Comment on above: Performed By: #### A CETON #### [facility] Laboratory [address] [place] [address] Dr. Gasper Garber TSH RANGE SEE BELOW Normal [facility] Comment on above: Result Comment: <0.3 4 UIU/ml HYPERTHYROID 0.34-5.60 UIU/ml EUTHYROID >5.60 UIU/ml HYPOTHYROID Performed By: #### A CETON #### [facility] Laboratory [address] [place] [address] Dr. Gasper Garber URINE MICROSCOPIC ONLYon BACTERIA MODERATE Abnormal NONE SEEN The [facility] Comment on above: Performed By: #### E MINR, UMICRO #### [facility] Laboratory [address] [place] [address] Dr. Gasper Garber Bacteria identified Cx Nom (U) INDICATED Normal [facility] Comment on above: Performed By: #### E MINR, UMICRO #### [facility] Laboratory [address] [place] [address] Dr. Gasper Garber CAST SEEN Abnormal NONE SEEN [facility] Comment on above: Performed By: #### Bernice HERNDON UMICRO #### [facility] Laboratory [address] [place] [address] Dr. Gasper Garber Crystals LM Nom (Urine sed) NONE SEEN Normal NONE SEEN [facility] Comment on above: Performed By: #### Bernice HERNDON UMICRO #### [facility] Laboratory [address] [place] [address] Dr. Gasper Garber Epithelial cells LM Ql (Urine sed) RARE Normal NONE SEEN /RARE [facility] Comment on above: Performed By: #### Bernice HERNDON UMICRO #### [facility] Laboratory [address] [place] [address] Dr. Gasper Garber MUCOUS NONE SEEN Normal NONE SEEN [facility] Comment on above: Performed By: #### Bernice HERNDON, UMICRO #### [facility] Laboratory [address] [place] [address] Dr. Gasper Garber RBC NONE SEEN Abnormal 0-2 [facility] Comment on above: Performed By: #### E RUCrystal, UMICRO #### [facility] Laboratory [address] [place] [address] Dr. Gasper Garber WBC 2-5 Abnormal NONE SEEN [facility] Comment on above: Performed By: #### E BERNIE HERNDON #### [facility] Laboratory [address] [address] [address] Gasper Garber XR chest 1V portableon 07-01 XR chest 1V portable [facility] [place] [address] [place] [address] XRay Report Signed Patient: Elif Turner MR#: [id number] : 1945 Acct:[id number] Age/Sex: 75 / F ADM Date: 06/24/21 Loc: Room: [address] [place] [address] Type: DIS IN Attending Dr: Rusty Amor MD Ordering Provider: Marlon Leon DO, JOSE DE JESUS Date of Service: 06/24/21 XR/XR chest 1V [...] Valle Jr., M.D.07/01/2021 9:08 AM Dictation Location: [place] [address] Transcribed By: [facility] 07/01/21907 Dictated By: Adarsh Valle Jr, MD 07/01/21906 Signed By: 07/01/21 09 Normal [facility] Activated partial thrombopla stin time (aPTT) in platelet poor plasma by coagulation aOrdered By: Marlon Leon on 06-25-2021 aPTT Coag (PPP) [Time] 24.8 s 25.1-36.5 [facility] Basophils Auto (Bld) [#/Vol] Ordered By: Marlon eLon on 06-25-2021 Basophils (Bld) [#/Vol] 0.0 10*3/uL 0.0-0.2 [facility] Basophils/100 WBC Auto (Bld) Ordered By: Marlon Leon on 06-25-2021 Basophils/100 WBC (Bld) 0.3 % [facility] Blood hemoglobin measurement (mass/volume)Ordered By: Marlon Leon on 06-25-2021 Hemoglobin (Bld) [Mass/Vol] 11.1 g/dL 11.8-15.4 [facility] Blood leukocytes automated c ount (number/volume)Ordered By: Marlon Leon on 06-25-2021 WBC (Bld) [#/Vol] 10.5 10*3/uL 4.5-11.0 [facility] Complete Blood Count Auto Di ffon 06-25-2021 Basophils (Bld) [#/Vol] 0.0 10*3/uL Normal 0.0-0.2 [facility] Comment on above: Result Comment: PERF ORMED BY: [facility] [address] [place] [address] PATHOLOGIST [employer] NARGIS CLEMENS M.D. Performed By: #### G LULS #### Point of Care testing , Basophils/100 WBC (Bld) 0.3 % Normal . [facility] Comment on above: Performed By: #### G LULS #### Point of Care testing , Eosinophils (Bld) [#/Vol] 0.0 10*3/uL Normal 0.0-0.45 [facility] Comment on above: Performed By: #### G LULS #### Point of Care testing , Eosinophils/100 WBC (Bld) 0.0 % Normal . [facility] Comment on above: Performed By: #### G LULS #### Point of Care testing , Erythrocyte distribution width (RBC) [Ratio] 12.7 % Normal 11.9-15.3 [facility] Comment on above: Performed By: #### G LULS #### Point of Care testing , Hematocrit (Bld) [Volume fraction] 32.7 % Low 34.0-46.4 [facility] Comment on above: Performed By: #### G LULS #### Point of Care testing , Hemoglobin (Bld) [Mass/Vol] 11.1 g/dL Low 11.8-15.4 [facility] Comment on above: Performed By: #### G LULS #### Point of Care testing , Lymphocytes (Bld) [#/Vol] 0.4 10*3/uL Low 1.00-4.8 [facility] Comment on above: Performed By: #### G LULS #### Point of Care testing , Lymphocytes/100 WBC (Bld) 4.3 % Normal . [facility] Comment on above: Performed By: #### G LULS #### Point of Care testing , MCH (RBC) [Entitic mass] 31.3 pg Normal 24.7-34.3 [facility] Comment on above: Performed By: #### G ROLNADOLS #### Point of Care testing , MCV (RBC) [Entitic vol] 92.1 fL Normal 80-100 [facility] Comment on above: Performed By: #### G LULS #### Point of Care testing , Mean Corpuscular HGB Conc 34.0 g/dL Normal 32.0-35.0 [facility] Comment on above: Performed By: #### G ROLANDOLS #### Point of Care testing , Monocytes (Bld) [#/Vol] 0.5 10*3/uL Normal 0.0-0.8 [facility] Comment on above: Performed By: #### G LULS #### Point of Care testing , Monocytes/100 WBC (Bld) 4.5 % Normal . [facility] Comment on above: Performed By: #### G ROLANDOLS #### Point of Care testing , Neutrophils (Bld) [#/Vol] 9.6 10*3/uL High 1.8-7.7 [facility] Comment on above: Performed By: #### G LULS #### Point of Care testing , Neutrophils/100 WBC (Bld) 90.9 % Normal . [facility] Comment on above: Performed By: #### G SHANNAN #### Point of Care testing , Nucleated RBC/100 WBC (Bld) [Ratio] 0.0 % Normal 0-0.5 [facility] Comment on above: Performed By: #### G ROLANDOLS #### Point of Care testing , Platelet mean volume (Bld) [Entitic vol] 9.0 fL Normal 6.3-10.7 [facility] Comment on above: Performed By: #### G LULS #### Point of Care testing , Platelets (Bld) [#/Vol] 205 10*3/uL Normal 150-450 [facility] Comment on above: Performed By: #### G SHANNAN #### Point of Care testing , RBC (Bld) [#/Vol] 3.55 10*6/uL Low 3.60-5.00 [facility] Comment on above: Performed By: #### G SHANNAN #### Point of Care testing , WBC (Bld) [#/Vol] 10.5 10*3/uL Normal 4.5-11.0 [facility] Comment on above: Performed By: #### G SHANNAN #### Point of Care testing , ECG 12 lead ECGon 06-25-2021 ECG 12 lead ECG [facility] [address] Electrocardiograph Report Signed Patient: Elif Turner MR#: [id number] : 1945 Acct:[id number] Age/Sex: 75 / F ADM Date: 06/24/21 Loc: Room: [address] [place] [address] Type: DIS IN Attending Dr: Rusty Amor [...] are now present Confirmed by SANG BARRIOS [facility], [facility]IL ([id number]) on 06/25/2021 11:01:31 AM Referred By: Electronically Signed By:WIL DOMÍNGUEZ MD [facility] Transcribed By: MUS Signed By Wil Domínguez MD, [facility] 06/25/21 1101 Normal [facility] Eosinophils Auto (Bld) [#/Vo l]Ordered By: Marlon Leon on 06-25-2021 Eosinophils (Bld) [#/Vol] 0.0 10*3/uL 0.0-0.45 [facility] Eosinophils/100 WBC Auto (Bl d)Ordered By: Marlon Leon on 06-25-2021 Eosinophils/100 WBC (Bld) 0.0 % [facility] Erythrocyte distribution wid th Auto (RBC) [Ratio]Ordered By: Marlon Leon on 06-25-2021 Erythrocyte distribution width (RBC) [Ratio] 12.7 % 11.9-15.3 [facility] Glucose Glucometer (BldC) [M ass/Vol]Ordered By: Rusty Amor on 06-25-2021 Glucose [Mass/Vol] 227 mg/dL [facility] Comment on above: Random Glucose Refer ence Range is dependent on time and content of last meal. Glucose of more than 200 mg/dL in a nonstressed, ambulatory subject supports the diagnosis of Diabetes Mellitus. Glucose Poct Glucometerson 0 06-25-2021 Glucose [Mass/Vol] 227 mg/dL Normal [facility] Comment on above: Result Comment: [place] Glucose Reference Range is dependent on time and content of last meal. Glucose of more than 200 mg/dL in a nonstressed, ambulatory subject supports the diagnosis of Diabetes Mellitus. PERFORMED BY: [place] [address] PATHOLOGIST [employer] NARGIS CLEMENS M.D. Performed By: #### P TT #### [address] Glucose [Mass/Vol] 184 mg/dL Normal [facility] Comment on above: Result Comment: [place] Glucose Reference Range is dependent on time and content of last meal. Glucose of more than 200 mg/dL in a nonstressed, ambulatory subject supports the diagnosis of Diabetes Mellitus. PERFORMED BY: [place] [address] PATHOLOGIST [employer] NARGIS CLEMENS M.D. Performed By: #### P TT #### [address] Glucose [Mass/Vol] 294 mg/dL Normal [facility] Comment on above: Result Comment: [facility] Glucose Reference Range is dependent on time and content of last meal. Glucose of more than 200 mg/dL in a nonstressed, ambulatory subject supports the diagnosis of Diabetes Mellitus. PERFORMED BY: [place] [address] PATHOLOGIST [employer] NARGIS CLEMENS M.D. Performed By: #### G LULS #### Point of Care testing , Hematocrit Auto (Bld) [Volum e fraction]Ordered By: Marlon Leon on 06-25-2021 Hematocrit (Bld) [Volume fraction] 32.7 % 34.0-46.4 [facility] Laboratory - CoagulationOrde red By: Marlon Leon on 06-25-2021 PT Coag (PPP) [Time] 11.5 s 9.0-12.9 [facility] - Hematology and Cell countsOrdered By: Marlon Leon on 06-25-2021 Nucleated RBC/100 WBC (Bld) [Ratio] 0.0 % 0-0.5 [facility] Lymphocytes Auto (Bld) [#/Vo l]Ordered By: Marlon Leon on 06-25-2021 Lymphocytes (Bld) [#/Vol] 0.4 10*3/uL 1.00-4.8 [facility] Lymphocytes/100 WBC Auto (Bl d)Ordered By: Marlon Leon on 06-25-2021 Lymphocytes/100 WBC (Bld) 4.3 % [facility] MCH Auto (RBC) [Entitic mass ]Ordered By: Marlon Leon on 06-25-2021 MCH (RBC) [Entitic mass] 31.3 pg 24.7-34.3 [facility] MCHC Auto (RBC) [Mass/Vol]Or dered By: Marlon Leon on 06-25-2021 MCHC (RBC) [Mass/Vol] 34.0 g/dL 32.0-35.0 [facility] MCV Auto (RBC) [Entitic vol] Ordered By: Marlon Leon on 06-25-2021 MCV (RBC) [Entitic vol] 92.1 fL 80-100 [facility] Monocytes Auto (Bld) [#/Vol] Ordered By: Marlon Leon on 06-25-2021 Monocytes (Bld) [#/Vol] 0.5 10*3/uL 0.0-0.8 [facility] Monocytes/100 WBC Auto (Bld) Ordered By: Marlon Leon on 06-25-2021 Monocytes/100 WBC (Bld) 4.5 % [facility] Neutrophils Auto (Bld) [#/Vo l]Ordered By: Marlon Leon on 06-25-2021 Neutrophils (Bld) [#/Vol] 9.6 10*3/uL 1.8-7.7 [facility] Neutrophils/100 WBC Auto (Bl d)Ordered By: Marlon Leon on 06-25-2021 Neutrophils/100 WBC (Bld) 90.9 % [facility] Partial Thromboplastin Timeo n 06-25-2021 aPTT Coag (Bld) [Time] 24.8 s Low 25.1-36.5 [facility] Comment on above: Result Comment: PERF ORMED BY: [facility] [address] [place] [address] PATHOLOGIST [employer] NARGIS CLEMENS M.D. Performed By: #### G SHANNAN #### Point of Care testing , Platelet mean volume Auto (B ld) [Entitic vol]Ordered By: Marlon Leon on 06-25-2021 Platelet mean volume (Bld) [Entitic vol] 9.0 fL 6.3-10.7 [facility] Platelet poor plasma interna tional normalized ratio (INR) by coagulation assay (relatOrdered By: Marlon Leon on 06-25-2021 INR Coag (PPP) [Relative time] 1.0 {INR} [facility] Comment on above: INR Therapeutic Rang e [...] 06-25-2021 Platelets (Bld) [#/Vol] 205 10*3/uL 150-450 [facility] Progress Noteson 06-25-2021 Institute Director Authentication Interface Message Text EMERGENCY TRIAGE, TREAT AND TRANSPORT (ET3) DOCUMENTATION OF TELEHEALTH VISIT Date / Time: 06/23/20211929 Name: Elif Turner : 1945 SSN: (Not on file) EMS Agency: [facility] [x] Verbal consent obtained [] Implied [...] Completed by: Andreas Freitas MD Normal [facility] Prothrombin Time INRon 06-25 INR Coag (PPP) [Relative time] 1.0 {INR} Normal [facility] Comment on above: Result Comment: INR Therapeutic [...] Coag (PPP) [Time] 11.5 s Normal 9.0-12.9 [facility] Comment on above: Performed By: #### G LULS #### Point of Care testing , RBC Auto (Bld) [#/Vol]Ordere d By: Marlon Leon on 06-25-2021 RBC (Bld) [#/Vol] 3.55 10*6/uL 3.60-5.00 [facility] Troponin I High Sensitivityo n 06-25-2021 Troponin I High Sensitivity 735 pg/mL Off scale high 0-15 [facility] Comment on above: Result Comment: Crit ical value result called at 0638 on 06/25/21 PERFORMED BY: [facility] [address] [place] [address] PATHOLOGIST [employer] NARGIS CLEMENS M.D. Performed By: #### P TT #### [facility] [address] [id number] [facility] Troponin I.cardiac [Mass/vol ume] in Serum or Plasma by High sensitivity methodOrdered By: Gen Bolivar on 06-25-2021 Troponin I.cardiac High sensitivity method [Mass/Vol] 735 pg/mL 0-15 [facility] Comment on above: Critical value result called at 0638 on 06/25/21 A1C with Estimated Average Chitra pang 06-24-2021 Glucose [Mass/Vol] 160 mg/dL Normal [facility] Comment on above: Result Comment: PERF ORMED BY: [facility] [address] [facility] [place] [address] PATHOLOGIST [employer] NARGIS CLEMENS M.D. Performed By: #### G LULS #### Point of Care testing , HbA1c (Bld) [Mass fraction] 7.2 % High 4.3-5.6 [facility] Comment on above: Result Comment: Incr eased risk for diabetes: 5.7 - 6.4 diabetes: >6.4 glycemic control for adults with diabetes: <7.0 Performed By: #### G LULS #### Point of Care testing , Albumin [Mass/volume] in Ser um or PlasmaOrdered By: Marlon Leon on 06-24-2021 Albumin [Mass/Vol] 3.1 g/dL 3.2-5.5 [facility] Cholesterol [Mass/volume] in Serum or PlasmaOrdered By: Marlon Leon on 06-24-2021 Cholesterol [Mass/Vol] 128 mg/dL 140-200 [facility] Comment on above: Chol less than 200 m g/dl low risk Chol 201-239 mg/dl borderline risk Chol 240 mg/dl and greater high risk Cholesterol in LDL Calc [Mas s/Vol]Ordered By: Marlon Leon on 06-24-2021 Cholesterol in LDL [Mass/Vol] 56 mg/dL 0-100 [facility] Comment on above: LDL ATP III CLASSIFI CATION LDL less than 100 mg/dL Optimal LDL 100-129 mg/dL Near or above optimal LDL 130-159 mg/dL Borderline high LDL 160-189 mg/dL High LDL greater than 189 mg/dL Very high Cholesterol in VLDL Calc [Ma ss/Vol]Ordered By: Marlon Leon on 06-24-2021 Cholesterol in VLDL [Mass/Vol] 13 mg/dL [facility] Complete Blood Count Auto Di ffon 06-24-2021 Basophils (Bld) [#/Vol] 0.1 10*3/uL Normal 0.0-0.2 [facility] Comment on above: Result Comment: PERF ORMED BY: [place] [address] PATHOLOGIST [employer] NARGIS CLEMENS M.D. Performed By: #### P TT #### [address] Basophils/100 WBC (Bld) 0.8 % Normal . [facility] Comment on above: Performed By: #### P TT #### [address] Eosinophils (Bld) [#/Vol] 0.2 10*3/uL Normal 0.0-0.45 [facility] Comment on above: Performed By: #### P TT #### [address] Eosinophils/100 WBC (Bld) 3.2 % Normal . [facility] Comment on above: Performed By: #### P TT #### [address] Erythrocyte distribution width (RBC) [Ratio] 12.7 % Normal 11.9-15.3 [facility] Comment on above: Performed By: #### P TT #### [address] Hematocrit (Bld) [Volume fraction] 30.5 % Low 34.0-46.4 [facility] Comment on above: Performed By: #### P TT #### [address] Hemoglobin (Bld) [Mass/Vol] 10.4 g/dL Low 11.8-15.4 [facility] Comment on above: Performed By: #### P TT #### [address] Lymphocytes (Bld) [#/Vol] 1.8 10*3/uL Normal 1.00-4.8 [facility] Comment on above: Performed By: #### P TT #### [address] Lymphocytes/100 WBC (Bld) 27.4 % Normal . [facility] Comment on above: Performed By: #### P TT #### [address] MCH (RBC) [Entitic mass] 31.3 pg Normal 24.7-34.3 [facility] Comment on above: Performed By: #### P TT #### [address] MCV (RBC) [Entitic vol] 92.0 fL Normal 80-100 [facility] Comment on above: Performed By: #### P TT #### [address] Mean Corpuscular HGB Conc 34.1 g/dL Normal 32.0-35.0 [facility] Comment on above: Performed By: #### P TT #### [address] Monocytes (Bld) [#/Vol] 0.6 10*3/uL Normal 0.0-0.8 [facility] Comment on above: Performed By: #### P TT #### [address] Monocytes/100 WBC (Bld) 8.9 % Normal . [facility] Comment on above: Performed By: #### P TT #### [place] [address] [place] Neutrophils (Bld) [#/Vol] 3.8 10*3/uL Normal 1.8-7.7 [facility] Comment on above: Performed By: #### P TT #### [place] [address] [place] Neutrophils/100 WBC (Bld) 59.7 % Normal . [facility] Comment on above: Performed By: #### P TT #### [address] Nucleated RBC/100 WBC (Bld) [Ratio] 0.0 % Normal 0-0.5 [facility] Comment on above: Performed By: #### P TT #### [address] Platelet mean volume (Bld) [Entitic vol] 8.4 fL Normal 6.3-10.7 [facility] Comment on above: Performed By: #### P TT #### [address] Platelets (Bld) [#/Vol] 191 10*3/uL Normal 150-450 [facility] Comment on above: Performed By: #### P TT #### [address] RBC (Bld) [#/Vol] 3.31 10*6/uL Low 3.60-5.00 [facility] Comment on above: Performed By: #### P TT #### [address] WBC (Bld) [#/Vol] 6.4 10*3/uL Normal 4.5-11.0 [facility] Comment on above: Performed By: #### P TT #### [address] Comprehensive Metabolic Pane hailey 06-24-2021 Albumin [Mass/Vol] 3.1 g/dL Low 3.2-5.5 [facility] Comment on above: Performed By: #### H S TROP, PT, PTT, CMP, PHOS, MG, LIPID #### [address] Albumin/Globulin [Mass ratio] 1.2 {ratio} Normal [facility] Comment on above: Performed By: #### H S TROP, PT, PTT, CMP, PHOS, MG, LIPID #### [facility] [address] [place] [address] ALP [Catalytic activity/Vol] 57 U/L Normal 32-92 [facility] Comment on above: Performed By: #### H S TROP, PT, PTT, CMP, PHOS, MG, LIPID #### [address] ALT [Catalytic activity/Vol] 25 U/L Normal 10-60 [facility] Comment on above: Performed By: #### H S TROP, PT, PTT, CMP, PHOS, MG, LIPID #### [facility] [address] [place] [address] AST [Catalytic activity/Vol] 20 U/L Normal 10-42 [facility] Comment on above: Performed By: #### H S TROP, PT, PTT, CMP, PHOS, MG, LIPID #### [facility] [address] [place] [address] Bilirubin [Mass/Vol] 0.5 mg/dL Normal 0.3-1.2 [facility] Comment on above: Performed By: #### H S TROP, PT, PTT, CMP, PHOS, MG, LIPID #### [address] Calcium [Mass/Vol] 9.1 mg/dL Normal 8.2-10.2 [facility] Comment on above: Performed By: #### H S TROP, PT, PTT, CMP, PHOS, MG, LIPID #### [facility] [address] [place] [address] Chloride [Moles/Vol] 108 mmol/L Normal 95-114 [facility] Comment on above: Performed By: #### H S TROP, PT, PTT, CMP, PHOS, MG, LIPID #### [address] CO2 [Moles/Vol] 25.1 mmol/L Normal 22.0-30.0 [facility] Comment on above: Performed By: #### H S TROP, PT, PTT, CMP, PHOS, MG, LIPID #### [address] [place] [address] [place] Creatinine [Mass/Vol] 1.64 mg/dL High 0.44-1.03 [facility] Comment on above: Performed By: #### H S TROP, PT, PTT, CMP, PHOS, MG, LIPID #### [facility] [address] Creatinine Clr Calc Pharmacy 33.62 [facility] Comment on above: Performed By: #### H S TROP, PT, PTT, CMP, PHOS, MG, LIPID #### [facility] [address] Estimated GFR ( Cathryn 37 [facility] Comment on above: Result Comment: GFR estimated reference range: According to KDOQI guidelines, <60 ml/min/1.73m2 is sufficient to diagnose a patient with chronic kidney disease. Performed By: #### H S TROP, PT, PTT, CMP, PHOS, MG, LIPID #### [address] Estimated GFR (Non- Am 31 [facility] Comment on above: Performed By: #### H S TROP, PT, PTT, CMP, PHOS, MG, LIPID #### [address] Globulin (S) [Mass/Vol] 2.6 g/dL [facility] Comment on above: Performed By: #### H S TROP, PT, PTT, CMP, PHOS, MG, LIPID #### [address] Glucose [Mass/Vol] 65 mg/dL Low 70-100 [facility] Comment on above: Result Comment: [place] Glucose Reference Range is dependent on time and content of last meal. Glucose of more than 200 mg/dL in a nonstressed, ambulatory subject supports the diagnosis of Diabetes Mellitus. ADA recommended reference range Performed By: #### H S TROP, PT, PTT, CMP, PHOS, MG, LIPID #### [address] Potassium [Moles/Vol] 4.1 mmol/L Normal 3.5-5.1 [facility] Comment on above: Performed By: #### H S TROP, PT, PTT, CMP, PHOS, MG, LIPID #### [facility] [facility] [address] Protein [Mass/Vol] 5.7 g/dL Low 6.1-7.9 [facility] Comment on above: Performed By: #### H S TROP, PT, PTT, CMP, PHOS, MG, LIPID #### [facility] [address] Sodium [Moles/Vol] 140 mmol/L Normal 136-146 [facility] Comment on above: Performed By: #### H S TROP, PT, PTT, CMP, PHOS, MG, LIPID #### [facility] [address] Urea nitrogen [Mass/Vol] 27 mg/dL High 9-23 [facility] Comment on above: Performed By: #### H S TROP, PT, PTT, CMP, PHOS, MG, LIPID #### [facility] [address] [place] [address] [place] Creatinine and Glomerular fi ltration rate.predicted panel (S/P/Bld)Ordered By: Marlon Leon on 06-24-2021 Creatinine [Mass/Vol] 1.64 mg/dL 0.44-1.03 [facility] ECG 12 lead ECGon 06-24-2021 ECG 12 lead ECG [facility] [place] [address] Electrocardiograph Report Signed Patient: Elif Turner MR#: [id number] : 1945 Acct:[id number] Age/Sex: 75 / F ADM Date: 06/24/21 Loc: Room: [address] [place] [address] Type: DIS IN Attending Dr: Rusty Amor [...] Referred By: Electronically Signed By:WIL DOMÍNGUEZ MD [facility] Transcribed By: MUS Signed By Wil Domínguez MD, FACC 06/25/21 1101 [facility] ECG 12 lead ECG [place] [id number] Electrocardiograph Report Signed Patient: Elif Turner MR#: [id number] : 1945 Acct:[id number] Age/Sex: 75 / F ADM Date: 06/24/21 Loc: Room: [address] [place] [address] Type: DIS IN Attending Dr: Rusty Amor [...] by WIL DOMÍNGUEZ MD, FACC ([id number]) on 06/24/2021 10:01:50 AM Referred By: Electronically Signed By:WIL DOMÍNGUEZ MD, FACC Transcribed By: MUS Signed By Wil Domínguez MD, FACC 06/24/21 1001 [facility] ECH echo transthoracicon ECH echo transthoracic [facility] Main [address] [address] Echocardiogram Signed Patient: Elif Turner MR#: [id number] : 1945 Acct:[id number] Age/Sex: 75 / F ADM Date: 06/24/21 Loc: 4 Room: [address] [place] [address] Type: DIS IN Attending Dr: Rusty Amor MD Ordering Provider: Marlon Leon DO, RES Date of Service: 06/24/2108/10/602 ECH/ECH echo transthoracic: NSTEMI Copies to: Marlon Leon DO, RES Wil Domínguez MD, [facility] A : 1945 Gender: Female (MM/DD/YYYY) Age: [...] Frazier. : : MD SANG, : : [facility] : : : : on: 06/24/2021, 11:11 : : AM : : : Transcribed By: SCAnita Performed At: 06/24/21 0944 Signed By: Wil Domínguez MD, [facility] 06/24/21 1111 Normal [facility] Estimated glomerular filtrat ion rate (GFR) non- AmericanOrdered By: Marlon Leon on 06-24-2021 GFR/1.73 sq M.predicted among non-blacks MDRD (S/P/Bld) [Vol rate/Area] 31 mL/Min [facility] Globulin Calc (S) [Mass/Vol] Ordered By: Marlon Leon on 06-24-2021 Globulin (S) [Mass/Vol] 2.6 g/dL [facility] Glucose Poct Glucometerson 0 06-24-2021 Glucose [Mass/Vol] 322 mg/dL Normal [facility] Comment on above: Result Comment: [place] Glucose Reference Range is dependent on time and content of last meal. Glucose of more than 200 mg/dL in a nonstressed, ambulatory subject supports the diagnosis of Diabetes Mellitus. PERFORMED BY: [place] [address] PATHOLOGIST [employer] NARGIS CLEMENS M.D. Performed By: #### G LULS #### Point of Care testing , Commemt1 Glu2: Cleaned Meter Normal [facility] Comment on above: Result Comment: PERF ORMED BY: [facility] [address] [facility] [place] [address] PATHOLOGIST [employer] NARGIS CLEMENS M.D. Performed By: #### G LULS #### Point of Care testing , Glucose [Mass/Vol] 87 mg/dL Normal [facility] Comment on above: Result Comment: [place] om Glucose Reference Range is dependent on time and content of last meal. Glucose of more than 200 mg/dL in a nonstressed, ambulatory subject supports the diagnosis of Diabetes Mellitus. Performed By: #### G LULS #### Point of Care testing , Glucose [Mass/Vol] 139 mg/dL Normal [facility] Comment on above: Result Comment: [facility] Glucose Reference Range is dependent on time and content of last meal. Glucose of more than 200 mg/dL in a nonstressed, ambulatory subject supports the diagnosis of Diabetes Mellitus. PERFORMED BY: [place] [address] PATHOLOGIST [employer] NARGIS CLEMENS M.D. Performed By: #### P TT #### [facility] [address] [place] [address] Glucose mean value [Mass/vol ume] in Blood Estimated from glycated hemoglobinOrdered By: Marlon Leon on 06-24-2021 Average glucose Estimated from glycated hemoglobin (Bld) [Mass/Vol] 160 mg/dL [facility] Hemoglobin A1c percentageOrd ered By: Marlon Leon on 06-24-2021 HbA1c (Bld) [Mass fraction] 7.2 % 4.3-5.6 [facility] Comment on above: Increased risk for d iabetes: 5.7 - 6.4 diabetes: >6.4 glycemic control for adults with diabetes: <7.0 Laboratory - Chemistry and C hemistry - challengeOrdered By: Marlon Leon on 06-24-2021 Magnesium [Mass/Vol] 2.4 mg/dL 1.6-2.6 [facility] Lipid Panelon 06-24-2021 Cholesterol [Mass/Vol] 128 mg/dL Low 140-200 [facility] Comment on above: Result Comment: Chol less than 200 mg/dl low risk Chol 201-239 mg/dl borderline risk Chol 240 mg/dl and greater high risk Performed By: #### H S TROP, PT, PTT, CMP, PHOS, MG, LIPID #### [facility] [address] [place] [address] Cholesterol in HDL [Mass/Vol] 58 mg/dL Normal 35-85 [facility] Comment on above: Result Comment: HDL CHOL ATP-III CLASSIFICATION Cardiovascular Risk HDL > or equal to 60 mg/dL LOW HDL < 40 mg/dL HIGH Performed By: #### H S TROP, PT, PTT, CMP, PHOS, MG, LIPID #### [facility] [address] Cholesterol.total/Ch olesterol in HDL [Mass ratio] 2.2 {ratio} Normal <5.0 [facility] Comment on above: Result Comment: PERF ORMED BY: [facility] [address] [place] [address] PATHOLOGIST [employer] NARGIS CLEMENS M.D. Performed By: #### H S TROP, PT, PTT, CMP, PHOS, MG, LIPID #### [facility] [address] LDL Cholesterol,Calculat ed 56 mg/dL Normal 0-100 [facility] Comment on above: Result Comment: LDL ATP III CLASSIFICATION LDL less than 100 mg/dL Optimal LDL 100-129 mg/dL Near or above optimal LDL 130-159 mg/dL Borderline high LDL 160-189 mg/dL High LDL greater than 189 mg/dL Very high Performed By: #### H S TROP, PT, PTT, CMP, PHOS, MG, LIPID #### [facility] [address] Triglyceride w/Reflex 69 mg/dL Normal 35-149 [facility] Comment on above: Result Comment: TRIG ATP III CLASSIFICATION TRIG less than 150 mg/dL Normal TRIG 150-199 mg/dL Borderline high TRIG 200-500 mg/dL High TRIG greater than 500 mg/dL Very high Standard traceable to the Center for Disease Conrtrol and Prevention (CDC) test method. Performed By: #### H S TROP, PT, PTT, CMP, PHOS, MG, LIPID #### [facility] [address] VLDL CHOLESTEROL 13 mg/dL Normal [facility] Comment on above: Performed By: #### H S TROP, PT, PTT, CMP, PHOS, MG, LIPID #### [facility] [address] Magnesiumon 06-24-2021 Magnesium [Mass/Vol] 2.4 mg/dL Normal 1.6-2.6 [facility] Comment on above: Performed By: #### H S TROP, PT, PTT, CMP, PHOS, MG, LIPID #### [facility] [address] No Panel InformationOrdered By: Rusty Amor on 06-24-2021 Bedside Glucose Comment Glu2: cleaned meter [facility] No Panel InformationOrdered By: Marlon Leon on 06-24-2021 Estimated GFR () 37 mL/Min [facility] Comment on above: GFR estimated refere nce range: According to KDOQI guidelines, <60 ml/min/1.73m2 is sufficient to diagnose a patient with chronic kidney disease. Pharmacy Creatinine Clearance (Chem 33.62 [facility] Partial Thromboplastin Timeo n 06-24-2021 aPTT Coag (Bld) [Time] 43.4 s High 25.1-36.5 [facility] Comment on above: Order Comment: draw both at 11:35 with per Shahnaz martin Result Comment: PERF ORMED BY: [place] [address] PATHOLOGIST [employer] NARGIS CLEMENS M.D. Performed By: #### P TT #### [address] aPTT Coag (Bld) [Time] 35.4 s Normal 25.1-36.5 [facility] Comment on above: Result Comment: PERF ORMED BY: [place] [address] PATHOLOGIST [employer] NARGIS CLEMENS M.D. Performed By: #### H S TROP, PT, PTT, CMP, PHOS, MG, LIPID #### [facility] [address] [place] [address] Phosphate [Mass/volume] in S sybil or PlasmaOrdered By: Marlon Leon on 06-24-2021 Phosphate [Mass/Vol] 3.5 mg/dL 2.5-4.6 [facility] Phosphoruson 06-24-2021 Phosphate [Mass/Vol] 3.5 mg/dL Normal 2.5-4.6 [facility] Comment on above: Performed By: #### H S TROP, PT, PTT, CMP, PHOS, MG, LIPID #### [facility] [address] Protein [Mass/volume] in Ser um or PlasmaOrdered By: Marlon Leon on 06-24-2021 Protein [Mass/Vol] 5.7 g/dL 6.1-7.9 [facility] Prothrombin Time INRon 06-24 INR Coag (PPP) [Relative time] 1.0 {INR} Normal [facility] Comment on above: Result Comment: INR Therapeutic [...] PT, PTT, CMP, PHOS, MG, LIPID #### [facility] [address] PT Coag (PPP) [Time] 11.7 s Normal 9.0-12.9 [facility] Comment on above: Performed By: #### H S TROP, PT, PTT, CMP, PHOS, MG, LIPID #### [facility] [address] Serum or plasma alanine liu otransferase measurement without P-5'-P (enzymatic activiOrdered By: Marlon Leon on 06-24-2021 ALT No additional P-5'-P [Catalytic activity/Vol] 25 U/L 10-60 [facility] Serum or plasma albumin/glob ulin mass ratioOrdered By: Marlon Leon on 06-24-2021 Albumin/Globulin [Mass ratio] 1.2 {ratio} [facility] Serum or plasma alkaline carrie sphatase measurement (enzymatic activity/volume)Ordered By: Marlon Leon on 06-24-2021 ALP [Catalytic activity/Vol] 57 U/L 32-92 [facility] Serum or plasma aspartate am inotransferase measurement (enzymatic activity/volume)Ordered By: Marlon Leon on 06-24-2021 AST [Catalytic activity/Vol] 20 U/L 10-42 [facility] Serum or plasma calcium varsha urement (mass/volume)Ordered By: Marlon Leon on 06-24-2021 Calcium [Mass/Vol] 9.1 mg/dL 8.2-10.2 [facility] Serum or plasma chloride viktoriya surement (moles/volume)Ordered By: Marlon Leon on 06-24-2021 Chloride [Moles/Vol] 108 mmol/L 95-114 [facility] Serum or plasma glucose varsha urement (mass/volume)Ordered By: Marlon Leon on 06-24-2021 Glucose [Mass/Vol] 65 mg/dL 70-100 [facility] Comment on above: ADA recommended refe rence range Random Glucose Reference Range is dependent on time and content of last meal. Glucose of more than 200 mg/dL in a nonstressed, ambulatory subject supports the diagnosis of Diabetes Mellitus. Serum or plasma high density lipoprotein (HDL) cholesterol measurementOrdered By: Marlon Leon on 06-24-2021 Cholesterol in HDL [Mass/Vol] 58 mg/dL 35-85 [facility] Comment on above: HDL CHOL ATP-III CLA SSIFICATION Cardiovascular Risk HDL > or equal to 60 mg/dL LOW HDL < 40 mg/dL HIGH Serum or plasma potassium me asurement (moles/volume)Ordered By: Marlon Leon on 06-24-2021 Potassium [Moles/Vol] 4.1 mmol/L 3.5-5.1 [facility] Serum or plasma sodium measu rement (moles/volume)Ordered By: Marlon Leon on 06-24-2021 Sodium [Moles/Vol] 140 mmol/L 136-146 [facility] Serum or plasma total biliru bin measurement (mass/volume)Ordered By: Marlon Leon on 06-24-2021 Bilirubin [Mass/Vol] 0.5 mg/dL 0.3-1.2 [facility] Serum or plasma total carbon dioxide measurement (moles/volume)Ordered By: Marlon Leon on 06-24-2021 CO2 [Moles/Vol] 25.1 mmol/L 22.0-30.0 [facility] Serum or plasma total choles terol/high density lipoprotein (HDL) cholesterol mass ratOrdered By: Marlon Leon on 06-24-2021 Cholesterol.total/Ch olesterol in HDL [Mass ratio] 2.2 {ratio} [facility] Serum or plasma urea nitroge n measurement (mass/volume)Ordered By: Marlon Leon on 06-24-2021 Urea nitrogen [Mass/Vol] 27 mg/dL 9- [facility] Triglyceride [Mass/volume] i n Serum or PlasmaOrdered By: Marlon Leon on 06-24-2021 Triglyceride [Mass/Vol] 69 mg/dL 35-149 [facility] Comment on above: TRIG ATP III CLASSIF ICATION TRIG less than 150 mg/dL Normal TRIG 150-199 mg/dL Borderline high TRIG 200-500 mg/dL High TRIG greater than 500 mg/dL Very high Standard traceable to the Center for Disease Conrtrol and Prevention (CDC) test method. Troponin I High Sensitivityo n 06-24-2021 Troponin I High Sensitivity 879 pg/mL Off scale high 0-15 [facility] Comment on above: Order Comment: draw both at 11:35 with per Shahnaz martin Result Comment: Crit ical value result called at 1246 on 06/24/21 PERFORMED BY: [place] [address] PATHOLOGIST [employer] NARGIS CLEMENS M.D. Performed By: #### G LULS #### Point of Care testing , Troponin I High Sensitivity 1098 pg/mL Off scale high 0-15 [facility] Comment on above: Result Comment: Resu lts called at 0635 on 06/24/21 PERFORMED BY: [place] [address] PATHOLOGIST [employer] NARGIS CLEMENS M.D. Performed By: #### H S TROP, PT, PTT, CMP, PHOS, MG, LIPID #### [address] Auth for Release of Medical Recordson 03-01-2021 Auth for Release of Medical Records [id number]:127 Normal [facility] Reminderson 02-16-2021 Reminders - From: Elsa Erickson LPN To: [facility] - Clinical; Sent: 02/16/2021 08:31:52 EST Show up: 01/10/2026 08:00:00 EST Subject: colonoscopy recall Due Date/Time: 02/09/2026 08:00:00 EST Reminder/Recall Patient is due for colonoscopy 02/09/2026 due to history of tubular adenoma. Normal [facility] Ambulatory Clinical Summaryo n 02-15-2021 Ambulatory Clinical Summary {[id number]}CD:[id number] Normal [facility] General Surgery Office/Clini c Noteon 02-15-2021 General Surgery Office/Clinic Note CD:[id number] KmjeiWzz6jxor8aHS4uPwTcsvZg FAucRk6ud1lsEG21pr1aVaVzXn7 +UiiwKZ5GTUkTYKSk cX1gBJDCVltKHmMbRO2kHfYICy1 HBGNqHAfFIHwxGX1jFID5gdkycY 1uEX1hZYRcwPTdEw6oi1b7 CfbpOz3fGw9JWm32wVDpaRByGFX JG2sayI4uUH0zkEFrY1MgZIMxTj 0KRVk3kOfonH6eujZ0Tju2 iDU6Sl22x9xpjlYkk6YfYwS2MBa dqUa8eTfgDVsqjQ2jXgAkHXGCjB 7mhUbfCB2eqU3lykEstVvi biI+IpjaYPJtBhq5uJZqTR38Z9W jaBgaHyp2gLF8ZSZdfLPrAXVppP l1LPZVRBXGDSNgbJCvtRuz kBVfEPIszyNgptK7NltCUPVfNlJ uIef1X4ljYAO+Nxevx7G7Gla4VE r6JUU7wPquFILxm338MSWa yFbqbYhbwMCxp28eYFKgoOBxToN ru330WEBpavA2RVhnfQffRuo1bH PvuUOga9kvqJi3KkMgPMWj PpsYYAPanSynu7LmOgaHNJqzu1u sitEliCnkHYK8e2FgJNevZWTgPS I2BgHdZZ4+CgkJPGNvbCB2 WAmvT821VdKweDSdt1kxbMm3PvQ 9ZXAfOi9AFDwhP13sQ1ZujEW+Cg h8rVKdTFk+CgkJPHRyPgoJ FGe6uJVrr1R7tUI6JhUskyAyw7y 2ZYtqQPA3SuF6IZZ0vJUzeI7imN cqoceigR2gIgF+CgkJCTxk qLAuT2jeq9J2VmMsd0WxoIgxliJ kNHBvPjFsa9xpIxdvIXMkiG8dVU K3FkAbOYHrtKBkRNQiMP8u lnXgcMBfAKWnDjWaG9Yhx55qf5W iAKSDQ9vKSvKfQGD4SH8eKpVgUD 0iXzljNGYzNmVlLWFlZGYt MNIyQQ41GRn6RQJvPYUiIFCmEgA 5UsVcf1O5hTR3WvHgOGFfyhd6AB RweDsiPjxzcGFuIGNsYXNz TXEoHEKgJ8Dse91lpVFeyER9Zj5 4h7WwegLzoPxlXZ9rXm7vtF70XP aeyCV3VTXulGK2LSAfeBDx VTJqe4IvbUpzvjkqsH6bBGCaiN7 lOyI+J6ksZYSnR71lqGcflE32BP 4dtFXiJjigm0Kihm3HCFjU HFYpppIvpEZzyz1fRNCjyBCil38 8RQ16TcPwMClyz919NU38jOadQB 7kLSNJB8ZLCE7AZVFMXjJm NSngZBFrahYrL7P1xXzbNIKPH4U 0OeB5JW3TTdGnLFDGN3OwTzBxLd 6HG2FNAXtLPrS5PfDmTHcz OGIwJIfzSQT0WxhaNBQ7KI08G5V cTHQ7TRMfOTNoMrNgHQy8EbmgWs 1FJIrKDCIoxvFbgHEsup6j ZLVlxWWlk771YR75hZRcjCYfYKA rrL50LFUyAFHnuAP1Ep32KqB6LC P4SK5fZAYbOPQvZVMiGnM4 Zr15DjAgMRYcABBgNJCwDqSrk1U bw4NxrhY4tIFmLLTxmCpkkhS1vM vdCLf2GtpIOCl2F7Gxrw6E ISqBMC5wxQL+FaoPNRs3EPh9KOQ yLAYiDXQgJRAnN9Vgs26mHHFlQB TvHAXtZVVdCUNgDWtud1Sy cMDePHV4WSu0SKVhnoXag5ZgGbr cSzGcGGqsUBY8vJ2wI85jKI2iHB 1CHzCgEZUsJbHiKiWnbWV0 Li2eYRLlSslnMa8rSJmaSVK3BmL uRABgPf46HArbKZGaZTi8LfWoXG T9yXlqVXVaJZVybG1vFbZ5 jTg9Rj80t6RjhhOjeELcok5tIST iXTM3tC4cJCjvbMgupBD+PHNwYW 4yc3X5vRT6FaJeiyRlj6Nc F8r1EwKic4axRtD7XZw6JNTvI02 nIFQyf009PEYeDVWevVcwQYwjRw gBUDYNeOBgUuxxd2Hjfv26 U0TdAY8+OnzCZOd1YWi0MPRgSBQ zPSJkZGVtcmNvbnRlbnQiIGRkOm KumrSetdZ7fJZpAZUMNMXS LLXIE74MNZMuHJAwHoYtTgTyAI0 hBMW5oAT8PnA6LEBEABXsXRm0QE PxOMW0No6TKnUmOHBMMUOK EakzMXM3PzPtnEM3If89ZtNzFvI qBs8nRXD1LWWiLLZzJGEeCN48G4 V1Jpw8UYYlEGSfOvoFUXf8 NPq0HCOgUANeQWSvYRHaalLfaqD ygxShaIKxHOJmjqOgz0NfWkzzVt UxJKriaU9bwI1ibBjiT0R7 rZobLUV9z6PizvozkZReKCOlKbF xfvLcpjM5kWZxKRVTYNLLEBWFX6 7JZGVjAYWmLiIsbWr5xIvi UOOgOGrdJOYkFTU7SZLqNbcmOyW 1KA85BRL8DJMtGzVxNJXnARObW1 QcMxSjTlE8cMcazyknMJ3j KPamHS1bZ8HgW5FjSA58JUKgw91 dTsvTRTh7CQk4ENR9sSkwUHZpRU RskV77MPVrvTIrbK24RYBn LVEhyyh6GUEjgEviYi8oJKPzNkG peITbfdjwDFGoLOCoQNPeTlQ8XS s1UFVoqKyvGlWaMWS4LuQc m6jbgxvlakgrGOCfFZOjHADjUxK 7VMs0JMqtFMLywOswFUoiGgToq6 73XVN3yLjhVsVqu5TkPQa1 KBKlfwIrj5CzY5h8GmYfi8JnMUn 4UFTsvJNlTJEay7EkwWtwjyoqxc 3hKSgnMosRQRw3IDv0Fres VG3yoQI6Uf08HKNyILiwZR62BPC nEDXsHtQxQEHwKe8bFFs4SMjsL6 ClQMXfKrnoAZ4GJynFQIxz aXY+MxIdHAvrbB5qiPBqfNScRYY yxsSwCy3xfW66UKWrHGLzn4RdRN cKBQkfnXklUJ13irDtQTAo RNGtMWU7paphGRQuc7HxwOMeVWH eTSIcl6pviu3zT37suVT4kDGbIY NzA9AbWXchMlJkb0gnfnXm zeJgevUxiBXzWZThpHqbVIA0u47 nWRCaMHOhjhHiygNqahT2eNJxUQ RlUS6nbZ3ucFHeZXllIxcz AKg7FomCFOn8M5Klso3VVAmYKQ6 kaXY+TtjVWGbnOIm0HllWEFd2S4 Qshr7BBCyMDO1srGP+CgoJ RMp4ESh5ZNYxZCRzCIQpFRQdE5I zp99wSUOnCRGcMYOuATGoXJBhRW wvg9JjnTWaCGJ8UYg1GPUc wgCfq9TaXtwoYcKcCXfbKKW7aY9 mN38xIB0uNL3ODhLsXHIbOzUcLo KruKM4Qd4gRVTcWrWwSO62 AUzgQIJ7DSJvZZEgIi0gKfJnZGH tSrA9DcIaVPU0aStoIFOrBIUveN 1eNxI2jEg1Ld70e0ObtdBd hYScfk1cBUVbSBR0uC1oFZqshJy heSI+XCIkXA5kl6F5fIQ5DrZvsj Mhp8AuT5y4XrHwd4brKtZ9 UJr7WHJmY06xCFEkw099ARAhMLO nmLeqBGfcEshgu7Stmodis7JiRU Frc9EpmNYGtFfxFYTfEN6r aAGhZjmcb0Jpfq9BNduFHEscyGH pG0rto4M5EmPgJF4pF62hwNOoeB JhCHS3J78yK1BuuL3sZUEJ NmApLSams517KC71nVhoRK5fAB5 IQ0JXVMBlAUAnIvRmUzRtPB1aHT C9lYJ8RnLlNtKtIwK7VAN5 PUHsNARDWd17UmeIFKJTInC8F4O 8R0Y4MMCgdVE7Dj0vWDiePPFgVY 5fIixqJDExHFQzFLM0Xw3k UwKgWJF4QZkyAQZvWhtSZWp2GTw 2IGNsYXNzPSJkZGVtcmNvbnRlbn WouSUzNtQvAZmts780TP65 wHhdNF1oUCHTJ4QGTA7NYFMWVpX fJFgdhzUxpWefSM8nNVm7YcF0NI Y9BeXdFIU0KN81kAM5drCw y0ayje5rCaZbkHE9Ga66DvWyDUS 4DL3cNnQhKYH3WIBaXHLnVW02KU S1KzHxMQN3OWLpVjhPGJj9 VYb6AFZlPTXkVEWyWVIccEKplmJ xoBVpXPL5VU82nSE7hOK2kAL8mH N0WjOmt0AjtOAggUQgcSJ6 Cu91VNk5VXWyNS9dUTKuTBVlGRM bAgikZY3wGSW3KpDaOqNvXPQhDf kZCZo2LAw7JQYuEMAvLVNb TKHwZUQ4HDe8OMNtyzUja3NhSyw qPwJcFDpjjT8ngK8ysIxdJ5D3rF dcRQD4c5QqoxldwDHwYGeg XZAwQaSuLrUsTxWqGTOwDl66JXC pERFpI2HiKEvuPOAhSOJrPGI4Ms 2lDRnmJMbsrm7lRIOMZG7t c2eeax9aV68esDH9iQXyPNrrl3M ytILtFcuenYBhUDZiLH9lZJEewF 0gBJMsoRceKDF5r918WTyb SqyqbT3wP6LuzxSfP4GgjXBjgTc zLCBsaWtlbHkgZnJvbSBiaWxlIH EoGix5gVtuejQlZOBqnmKe Oh6wJCwgfRpsx4BuXoArlSJvuBU 4kCX4mUCpENDaJF4deMWsfR3aCI FwOGJouE8oHPSiPOR1BYwc aL7nuZUwyYuoTCSxcXYniNaxIxA sXRR6hyJccrReC98uy28tp5o5qN ZugBYzuR6jB5cxLCxgsVZ8 qICctBFet2FhsYRpzV9iVQJmrfJ gASBxENZgPRbbAOKkhrD2qXE7HL p2PP5mg1EkAL8ybZPzACG4 g2CaHT27W9Qgzc0MQDlVMS6vbSU +DbhJWIaaHCl0TieYVHd0R1Vppk 3EPDiZKB2qbPK+CgoJCQk8 BVa3ZIIaNBGvMEPeINMoL2Aki39 gZGRyZWZyZXNoYWJsZSBkZGluc2 TucHKwNFF6TXl8NKKumeSf k0FaDwnxNkZcBFvjXJJ0yR7qB33 lLS9xRO7TKoLrLHKkTYrwAgBkmS V7Sq17MlYgXCP9RP5nC6W4 L (more content not included)... Normal [facility] Comment on above: Result Comment: Elec tronically Signed By: ANGEL BARRIOS, Neel Gamboa\Date and Time Signed: 02/15/21 15:08 EST Pathology Noteon 02-14-2021 Pathology Note [id number]#1.00CD:127 Normal [facility] Outside Colonoscopyon 2020 Outside Colonoscopy [id number]#1.00CD:127 [facility] Lab Reportson 02-07-2021 Lab Reports [id number]#1.00CD:127 [facility] Pre-Certification Formon Pre-Certification Form [id number]#1.00CD:127 [facility] Consent for Procedure/Surger yon 01-19-2021 Consent for Procedure/Surgery [id number]#1.00CD:127 [facility] Provider Letter FTon 01-19 Provider Letter [facility] [place] 19, 2021 AMADOR ABDALLA, [address] [place] [address] Re: ELIF TURNER Date of : 1945 Thank you for your referral of Elif Turner who was seen on consultation on 01/18/2021 for epigastric pain with nausea. An EGD and colonoscopy are planned for further evaluation. I have enclosed my consultation note for your review. I will be happy to follow Elif. Sincerely, Neel Razo MD General Surgery [facility] Ambulatory Clinical Summaryo n 01-18-2021 Ambulatory Clinical Summary {[id number]}CD:61 4368 [facility] Physician Referralon 021 Physician Referral [id number]#1.00CD:127 [facility] Consultation Noteon 12-07-19 21 Consultation Note [id number]#1.00CD:127 [facility] CNOVon 09-19-2017 CNOV Office Visit (VASSFT) -------ELIF TURNER ([id number]) 1945 [facility] Time Provider Department09/19/17 11:30 AM CHIDI MELLO During your visit today, we recorded the following information about you: Pulse Respiration Blood pressure Weight 52/minute 16/minute 115/46 93.4 kg Height 1.626 Margarita Mello MD 09/19/2017 11:59 AM [facility] Department of Cardiovascular MedicineOUTPATIENT VISIT DATE September 19, 2017OUTPATIENT VISIT TYPENEWPRIMARY CARE PHYSICIAN:Amador Abdalla MD ([facility])[address], [place] [address]Pilim: [phone]: [phone] PHYSICIANChrisyi Wilkins MD[address] [place] [address]HIUEM COMPLAINT:No chief complaint on file.HISTORY OF PRESENT [...] s/p PCI. On ASA, statin.HUMBERTO/PVR performed at [facility], right 0.94, left 1.14.PAST MEDICAL HISTORYDiagnosis Date- [...] Rash- Prochlorperazine UnknownMEDICATIONS:medical supply, miscellaneous (COMMODE PAIL [facility]) USE DIRECTEDVENTOLIN HFA 90 mcg/actuation inhaleramLODIPine (NORVASC) [...] mouth twice daily.ONETOUCH DELICA LANCETS [facility] twice [facility]. 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] Other Visit Diagnoses:Diabetic peripheral neuropathy associated with type 2 diabetes mellitus ([facility]) [E11.42] PAD (peripheral artery disease) ([facility]) [I73.9]Prescriptions as of 09/19/2017 Sig: COMMODE PAIL MISC USE DIRECTED VENTOLIN HFA 90 MCG/ACTUATION* AMLODIPINE [...] to improve.Follow-up and Disposition History RecordedEncounter Number: [id number] Status:Closed by CHIDI MELLO MD on 09/19/17 Normal [facility] PROGRESSon 09-19-2017 Protein mass conc HNO ID: [id number] thor: Chidi Feldman: (none)Author Type: PhysicianType: Progress NotesFiled: 09/19/2017 11:59 AMNote Text:[facility] InstituteProspect Harbor [facility] Department of Cardiovascular MedicineOUTPATIENT VISIT DATE September 19, 2017OUTPATIENT VISIT TYPENEWPRIMARY CARE PHYSICIAN:Amador Abdalla MD ([facility])[address] [place], [place] [address]Xekfg: [phone]: [phone] PHYSICIANChkiah Wilkins MD[address] [place] [address]NCCXJ COMPLAINT:No chief complaint on file.HISTORY OF PRESENT ILLNESS:Elif Turner was referred for consultation by Dr. Zach Wilkins.Opinions and recommendations in this consultation will be transmitted backto the referring physician by [facility] notes or via mail.Ms. Turner is a 72 year old female who is seen today for evaluation fordiscomfort in the arch of her feet and mild discomfort in the legs whenwalking.Her walking is limited by osteoarthritis of the knees, hips and lowerback. She uses a walker.She has difficulty in maintaining her glucose levels.Hx of CAD s/p PCI. On ASA, statin.HUMBERTO/PVR performed at [facility], right 0.94, left 1.14.PAST MEDICAL HISTORYDiagnosis Date- [...] tablet Take 1 tablet by mouth twice daily.Adaptive TCRTOUCH DELICA LANCETS 30 gauge misc twice daily. [...] Dr Wilkins of podiatry.Chidi Mello MD Normal [facility] Vital Signs Date Time Vital Sign Value Performing Clinician Facility 06-25-2021 12:15-0400 Body temperature 98.1 [degF] MD Amador Abdalla Work Phone: [facility] 06-25-2021 12:15-0400 Diastolic blood pressure 72 mm[Hg] MD Amador Abdalla Work Phone: [facility] 06-25-2021 12:15-0400 Heart rate 64 /min MD Amador Abdalla Work Phone: [facility] 06-25-2021 12:15-0400 Respiratory rate 18 /min MD Amador Abdalla Work Phone: [facility] 06-25-2021 12:15-0400 SaO2% (BldA) [Mass fraction] 96 % MD Amador Abdalla Work Phone: [facility] 06-25-2021 12:15-0400 Systolic blood pressure 127 mm[Hg] MD Amador Abdalla Work Phone: [facility] 06-25-2021 08:00-0400 Inhaled oxygen flow rate 3 L/min MD Amador Abdalla Work Phone: [facility] 06-25-2021 06:00-0400 Body weight 93.5 kg MD Amador Abdalla Work Phone: [facility] 06-24-2021 04:05-0400 Body height 162.56 cm MD Amador Abdalla Work Phone: [facility] 06-24-2021 04:05-0400 Body mass index (BMI) [Ratio] 34.9 kg/m2 MD Amador Abdalla Work Phone: [facility] 06-23-2021 19:30-0400 Diastolic blood pressure 61 mm[Hg] [facility] 06-23-2021 19:30-0400 Heart rate 80 /min [facility] 06-23-2021 19:30-0400 Respiratory rate 16 /min [facility] 06-23-2021 19:30-0400 SaO2% (BldA) [Mass fraction] 98 % [facility] 06-23-2021 19:30-0400 Systolic blood pressure 132 mm[Hg] [facility] Encounters Encounter Date Encounter Type Care Provider Facility Start: 11-12-2023 End: 11-12-2023 ambulatory AMADOR ABDALLA Not Available Start: 08-20-2023 End: 08-20-2023 ambulatory [facility] Start: 04-26-2023 End: 04-26-2023 ambulatory AMAYA WILKINS Not Available Start: 03-13-2023 End: 03-13-2023 ambulatory AMADOR ABDALLA Not Available Start: 01-31-2023 End: 01-31-2023 ambulatory CHRISTOPHER [facility] Start: 10-12-2022 Rx Renewal Zafar Chavira n DO Work Phone: [facility] 250 DO Work Phone: Start: 08-29-2022 End: 08-29-2022 ambulatory ALFREDO [facility] Start: 07-03-2022 End: 07-04-[address] AMADOR ABDALLA Facility:[facility]1 Start: 05-26-2022 End: 05-26-[address] AMADOR ABDALLA Facility:[facility] Start: 05-14-2022 End: 05-16-[address] AMADOR ABDALLA Facility:[facility] Start: 05-04-2022 End: 05-05-[address] AMADOR ABDALLA Facility:[facility] Start: 12-01-2021 End: 12-02-[address] AMADOR ABDALLA Facility:[facility] Start: 10-20-2021 Rx Renewal Zafar Readdo mcfadden DO Work Phone: [facility] 250 DO Work Phone: Start: 09-09-2021 End: [...] 07-15-2021 End: 07-17-[address] AMADOR ABDALLA Facility: Start: 06-25-2021 End: 07-29-2021 ambulatory UNKNOWN PROVIDER [facility] Start: 06-24-2021 End: 06-25-2021 Evaluation and management of inpatient Amador Abdalla Facility:[facility] Start: 06-24-2021 End: 06-25-2021 Evaluation and management of inpatient MD Amador Abdalla Work Phone: [facility] [place] [facility] Start: 06-23-2021 End: 06-23-2021 ambulatory [facility] Emergenc y Triage, Treat and Transport Start: 06-23-2021 End: 06-23-2021 Emergency department patient visit [facility] Emergency Triage, Treat and Transport Comment on above: Arrived Start: 11-21-2018 End: 11-24-2018 Patient encounter procedure KELLI HANKINS Facility:[facility] Start: 09-19-2017 End: 09-19-2017 Patient encounter CHIDI MELLO [facility] Procedures Date Procedure Procedure Detail Performing Clinician Start: 06-24-2021 CL Iliac/Fem w/LHC MD Karin Abdalla Work Phone: Start: 06-24-2021 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 Vesse l RCA BAMBI MD Amador Abdalla Work Phone: Start: 06-24-2021 Insertion of cathete r into urinary bladder MD Amador Abdalla Work Phone: Start: 06-24-2021 Therapeutic injectio n iv push each new drug MD Amador Abdalla Work Phone: Start: 06-24-2021 MD Amador snowden Work Phone: Plan of Treatment Date Care Activity Detail Author Start: 06-24-2021 Plain chest X-ray XR chest 1V portable [facility] Start: 07-10-2012 Pneumococcal vaccination Pneumococcal Vaccine(s) (65+ yrs) (1 - PCV) [facility] Start: 07-10-2012 Screening for osteoporosis Bone Densitometry [facility] Start: 07-10-1997 Measurement of occult blood in single stool specimen [facility] Start: 07-10-1997 Screening for malignant neoplasm of breast Mammography [facility] Start: 07-10-1997 Screening for malignant neoplasm of colon CRC Screening [facility] Start: 07-10-1997 Shingles (RZV) Vaccine (1 of 2) Shingles (RZV) Vaccine (1 of 2) [facility] Start: 07-10-1992 Cholesterol [Mass/volume] in Serum or Plasma Cholesterol [facility] Start: 07-10-1965 Hepatitis C screening Hepatitis C Antibody [facility] Start: 07-10-1965 Tetanus + diphtheria + acellular pertussis vaccine (product) Tdap Booster [facility] Start: 07-10-1952 COVID-19 Vaccine (1) COVID-19 Vaccine (1) [facility] Start: 1945 Screening for malignant neoplasm of colon Colonoscopy [facility] Patient Education Coronary Angio plasty (DC) Liraglutide Angina (DC) Drug Eluting Stents [facility] Work Phone: Patient referral [facility] Work Phone: Payers Date Payer Category Payer Medicare [id number] 2021 Self-pay [id number] 1957 Medicaid [id number] 1957 Medicare [id number] 01 [id number] 1959 Unknown [id number] 1947 Unknown [id number] 2.16.8 40.1.871241.3.579.2.647 1947 Unknown [id number] 2.16. 840.1.117739.3.579.2.732 1947 Unknown [id number] 2.16.84 0.1.073273.3.579.2.593 1947 Unknown [id number] 2.16.84 0.1.564281.3.579.2.593 1947 Unknown [id number] 2.16.84 0.1.473839.3.579.2.593 1947 Unknown [id number] 2.16.84 0.1.123603.3.579.2.593 1947 Unknown [id number] 2.16.84 0.1.604586.3.579.2.593 1947 Unknown [id number] 2.16.84 0.1.122709.3.579.2.593 1947 Unknown [id number] 2.16.84 0.1.032935.3.579.2.593 1947 Unknown [id number] 2.16.84 0.1.563130.3.579.2.593 1947 Unknown [id number] 2.16.84 0.1.612298.3.579.2.593 1947 Unknown [id number] 2.16.84 0.1.651400.3.579.2.593 1947 Unknown [id number] 2.16.84 0.1.653554.3.579.2.593 1947 Unknown [id number] 2.16.84 0.1.207621.3.579.2.593 1947 Unknown [id number] 2.16.84 0.1.719338.3.579.2.593 1947 Unknown [id number] 2.16.84 0.1.624390.3.579.2.1259 1947 Unknown [id number] 2.16.84 0.1.852550.3.579.2.1259 1947 Unknown [id number] 2.16.84 0.1.143430.3.579.2.1259 Medicare [id number] Unknown Unknown [id number] 2.16.8 40.1.439732.3.579.2.531 Social History Date Type Detail Facility Tobacco smoking status [facility] Tobacco smoking consumption unknown [facility] Work Phone: Start: 1945 Sex Assigned At Not on file [facility] Start: 06-24-2021 Tobacco smoking status NHIS Never smoked tobacco (finding) [facility] Start: 1945 Sex Assigned At Female F [facility] Goals Date Patient Goal Desired Activity /State Functional Status Date Assessment Result Facility 06-25-2021 Functional status Patient at Baseline [facility] Work Phone: Mental Status Date Assessment Result Facility 06-25-2021 Cognitive function Cognitive Sta tus Patient is Progressing Toward Baseline [facility] Work Phone: Clinical Notes 01-18-2021 to 08-20-2023 Note Date & Type Note Facility 08-20-2023 Note DC Cardiology - [facility] Subjective Elif Turner is a 78 y.o. year old female patient being seen for 6 mo follow up CAD, carotid artery stenosis, and hypertension. Had carotid duplex back in Jan 2023 after last apt. She would like to restart meloxicam for knee pain, but isn't sure if she should since she's taking aspirin and Plavix. It has been 2+ years since last PCI. She has been out of lasix for 2 weeks. Patient Active Problem List Diagnosis Coronary artery disease involving [place] coronary artery of [place] heart without angina pectoris CKD stage 4 due to type 2 diabetes mellitus (CMS/HCC) Essential hypertension Mixed hyperlipidemia Chronic diastolic heart failure (CMS/HCC) Carotid artery stenosis Abdominal mass Altered bowel function Angina pectoris (CMS/HCC) Benign neoplasm of ascending colon Bradycardia Cardiovascular stress test abnormal Cellulitis of lower limb Cognitive communication deficit Cyst of ovary Dyslipidemia Dysphagia, oral phase Edema of lower extremity Epigastric pain Gastro-esophageal reflux disease without esophagitis Anxiety disorder, unspecified History of falling Hyperkalemia Incisional hernia without obstruction or gangrene Insomnia Irritable bowel syndrome Long QT syndrome Low back pain, unspecified Major depressive disorder, recurrent, unspecified (CMS/HCC) Muscle weakness (generalized) Nausea Obesity Other urogenital candidiasis Overflow incontinence of urine Fibromyalgia Personal history of transient ischemic attack (TIA), and cerebral infarction without residual deficits Pulmonary hypertension, unspecified (CMS/HCC) Seasonal allergic rhinitis Solitary cyst of unspecified breast Type 2 diabetes mellitus without complication (CMS/HCC) Stage 3 chronic kidney disease (CMS/HCC) Unspecified osteoarthritis, unspecified site Unsteadiness on feet Vitamin D deficiency Unspecified abnormalities of gait and mobility Arachnoid cyst Depression Encounter for long-term (current) use of medications Major depressive disorder, recurrent episode, mild (CMS/HCC) Primary osteoarthritis of both knees Family History Problem Relation Name Age of Onset Breast cancer Mother Stroke Father Social History Tobacco Use Smoking status: Never Smokeless tobacco: Never Substance Use Topics Alcohol use: Not Currently Drug use: Never HPI Ms. Turner is seen in follow up on coronary artery disease s/p stenting of the RCA on 12/19/2012, and Circumflex/Obtuse marginal branch on 01/12/2015. She has hypertension on medical therapy, she has chronic diastolic heart failure. She has chronic kidney disease. In June 2021 she was admitted to an outside hospital with NSTEMI and underwent stenting of the RCA. Visit of 07/18/2017: At last visit of 06/20/2017 I had increased lasix from 60 to 80 mg daily. After that she was not eating or drinking after she was started on trazodone. She developed dehydration and JAKI, treated by hydration at [facility] and did well. Since then she has been feeling well and has been eating and drinking well and no longer takes trazodone and lasix is 40 mg daily. No chest pain and no dyspnea. Her Cr on 07/09/2017 was 1.96 and down to 1.7 on 07/10/2017. Update 11/16/2017: She is seen in follow up. Most recently she was admitted to [facility] with decompensated diastolic heart failure. She [...] 11/05/2017: Cr 1.55; BUN 55. NT-proBNP [id number] [facility] 11/12/2017: BUN 42, Cr 1.47, K 4.5. Update 01/04/2018: She is seen in follow up. Last visit I saw her after her admission to [facility] with heart failure and she developed [...] Most recently she was admitted to the [facility] and transferred to [facility] due to decompensated diastolic heart failure in the setting of UTI. She underwent right heart catheterization that showed significantly elevated filling pressures and pulmonary hypertension. She underwent diuresis. Her renal function at discharge (more content not included)... [facility] 01-31-2023 Note Cardiovascular Medic ine [facility] SUBJECTIVE Chief Complaint Patient presents with Congestive [...] almost identical to the prior angiogram in 2015, the coronary artery disease will be managed medically. The first diagonal branch is of small caliber and is not suitable for coronary intervention. Her diuretic therapy was increased maintenance of 60 mg daily. ECG 06/20/2017: normal sinus rhythm at 94 bpm, old inferior PA, comparable to prior ECG. Visit of 07/18/2017: At last visit of 06/20/2017 I had increased lasix from 60 to 80 mg daily. After that she was not eating or drinking after she was started on trazodone. She developed dehydration and JAKI, treated by hydration at [facility] and did well. Since then she has been feeling well and has been eating and drinking well and no longer takes trazodone and lasix is 40 mg daily. No chest pain and no dyspnea. Her Cr on 07/09/2017 was 1.96 and down to 1.7 on 07/10/2017. Update 11/16/2017: She is seen in follow up. Most recently she was admitted to [facility] with decompensated diastolic heart failure. She [...] 11/05/2017: Cr 1.55; BUN 55. NT-proBNP 4184 [facility] 11/12/2017: BUN 42, Cr 1.47, K 4.5. Update 01/04/2018: She is seen in follow up. Last visit I saw her after her admission to [facility] with heart failure and she developed [...] Most recently she was admitted to the [facility] and transferred to [facility] due to decompensated diastolic heart failure in [...] 1.57. BUN 56. (more content not included)... [facility] 01-31-2023 Note Patient here for 6 m [...] All other systems reviewed and are negative. [facility] 08-29-2022 Note SUBJECTIVE: Chief complaint: Consultation for [...] History: Diagnosis Date CHF (congestive heart failure) ([facility]) Chronic kidney disease Coronary artery disease Diabetes mellitus ([facility]) H/O total hysterectomy Heart attack ([facility]) Hyperlipidemia Hypertension Past Surgical History: [...] and at bedtime., Disp: , Rfl: HYDROcodone-acetaminophen ([place]) 5-325 mg tablet, Take 1 tablet by [...] Take 100 mg (more content not included)... [facility] 06-25-2021 Progress note Note Date/Time June 25, 2021 11:18am [facility] [address] [place] [address] Cardiology Progress Note Signed Patient: Elif Turner MR#: [id number] : 1945 Acct:[id number] Age/Sex: 75 / F Adm Date: 2 Loc: Room: [address] [place] [address] Type : ADM IN Attending Dr: Rusty [...] previous stents approximately 7 years ago in [place] details of which are unknown She really routinely follows with cardiology and saw her cost controller 3 months ago with no symptoms Comorbidities are noted for diabetes, obesity, hyperlipidemia, chronic kidney disease and essential hypertension Mrs. Turner is doing well today status post PCI to the RCA (RAILROAD PASSENGER AGENT) done per Dr. Bolivar yesterday. 2 drug-eluting [...] MPV Neut % (Auto) Lymph % (Auto) [place] % (Auto) Eos % (Auto) Baso % (Auto) Neut # (Auto) Lymph # (Auto) [place] # (Auto) Eos # (Auto) Baso # [...] % (Auto) 90.9 Lymph % (Auto) 4.3 [place] % (Auto) 4.5 Eos % (Auto) 0.0 Baso % (Auto) 0.3 Neut # (Auto) 9.6 H Lymph # (Auto) 0.4 L [place] # (Auto) 0.5 Eos # (Auto) 0.0 Baso # (Auto) 0.0 Nucleated RBC % (auto) 0.0 PT INR APTT POC Glucose 322 294 POC Glucose Comment Troponin I High Sens 06/25/21 06/25/21 06/25/21 05:24 05:24 07:51 Corrected WBC Uncorrected WBC Count RBC Hgb Hct MCV MCH MCHC RDW Plt Count MPV Neut % (Auto) Lymph % (Auto) [place] % (Auto) Eos % (Auto) Baso % (Auto) Neut # (Auto) Lymph # (Auto) [place] # (Auto) Eos # (Auto) Baso # [...] days. Patient may follow-up with her primary cost controller in [place] and should do so within 10 days [...] Code(s): I25.10 - Atherosclerotic heart disease of [place] coronary artery without angina pectoris Status: Acute Plan: Recommendations as above (4) Diabetes: Assessment/Problem Details: Primary hyster driver of risk for ongoing progressive coronary heart disease. Code(s): E11.9 - Type 2 diabetes mellitus without complications Status: Acute Plan: Okay to resume oral metformin in 24 hours. Aggressive glycemic control and control of serum insulin levels is recommended. (5) HTN (hypertension): Assessment/Problem Details: Also major hyster driver for risk of progressive/recurrent coronary heart disease Code(s): I10 - Essential (primary) hypertension Status: Acute Plan: Low-sodium DASH?2 diet is recommended Maintain medical therapy as outlined above. Within the construct of phase 2 monitored cardiac rehabilitation, a minimum 10% total body weight loss is strongly recommended Plan Okay for discharge to home today. Patient may follow-up with her primary cost controller in [place] within 10 days. Again, as mentioned above, enrollment in phase2 monitored cardiac rehabilitation is strongly recommended Time spent with patient Time Spent With Patient (min): 30 Documented By: Andrea Marinelli MD 06/25/21 1116 Signed By: <Electronically signed by Andrea Marinelli MD> 06/25/21 1127 [facility] Work Phone: 1(347) 288-320605-07-2022 History of Present illness Narrative* Andreas Freitas MD - 06/25/2021 10:50 AM EDT Images from the original note were not included. EMERGENCY TRIAGE, TREAT AND TRANSPORT (ET3) DOCUMENTATION OF TELEHEALTH VISIT Date / Time: 06/23/20211929 Name: Elif Turner : 1945 SSN: (Not on file) EMS Agency: [facility] [x] Verbal consent obtained [] Implied [...] vomiting, fever. She does have nausea. She [id number] due to the chest pain, but the [...] by: Andreas Freitas MD documented in this [id number] Progress note Author Rusty Amor [facility] June 24, 2021 4:36pm Note Date/Time June 24, 2021 3:50pm [facility] [address] [place] [address] Hospitalist Progress Note Signed Patient: Elif Turner MR#: [id number] : 1945 Acct:[id number] Age/Sex: 75 / F Adm Date: 2 Loc: Room: [address] [place] [address] Type : ADM IN Attending Dr: Rusty [...] of care and confirmed it with the resident/student/SAND CUTTING MACHINE OPERATOR. Patient was seen and examined at [...] Nacl IV 06/24/21 16:59 .Q10H [facility] Nitroglycerin/Dextrose 50 mg in 250 mls @ 1.5 mls/hr 06/24/21 15:30 Nitroglycerin 50 Mg-*D5w* IV 06/24/22 15:29 .Q24H [facility] Protocol 5 MCG/MIN Insulin Aspart 0 units 06/24/21 08:00 06/24/21 12:10 Insulin Aspart 300 Units/3 Ml Insuln.Pen SUBCUT 06/24/22 07:59 Not Given TID.WM.HS [facility] Protocol Insulin Detemir 10 units 06/24/21 22:00 Insulin Detemir 300 Units/3 Ml Insuln.Pen SUBCUT 06/24/22 21:59 QHS [facility] Lidocaine HCl 10 ml 06/24/21 13:52 Lidocaine [...] Montelukast 10 Mg Tablet PO 06/24/22 21:59 [facility] Nitroglycerin 0.4 mg 06/24/21 05:27 Nitroglycerin 0.4 [...] 15 Mg Capsule PO 06/24/22 21:59 HS BOYD Ticagrelor 90 mg 06/24/21 23:00 Ticagrelor 90 Mg Tablet PO 06/24/22 22:59 BID BOYD A&P - Hospitalist Assessment/Plan (1) NSTEMI (non-ST [...] CKD ?BUN 32 and creatinine 2.05 at [facility] yesterday Continue home medications. PT/OT Full code Rapid COVID-negative at [facility] Documented By: Nick Carr DO, RES 06/24/21 154 7 Signed By: <Electronically signed by DO JOSE DE JESUS Carr> 06/24/21 1633 <Electronically signed by Rusty Amor MD> 06/24/21 1636 [facility] Work Phone: 1(983) 827-359905-06-2022 Consult note Author W Osmel [facility] June 24, 2021 2:02pm Note Date/Time June 24, 2021 12:55p m [facility] [address] [place] [address] Cardiology Consult Note Signed Patient: Elif Turner MR#: [id number] : 1945 Acct:[id number] Age/Sex: 75 / F Adm Date: 2 Loc: 4 Room: [address] [place] [address] Type : ADM IN Attending Dr: Rusty Amor MD Copies to: MD Amador Winston MD W Scott Sheldon, DO~ Cardiology HPI History of Present Illness Consult Date: 06/24/21 Reason for Consult: Non-ST elevation PA HPI: Ms. Turner is a 75 year [...] previous stents approximately 7 years ago in [place] details of which are unknown She really routinely follows with cardiology and saw her cost controller 3 months ago with no symptoms Comorbidities [...] x10E3/uL Lymph # (Auto) 1.8 (1.00-4.8) x10E3/uL [place] # (Auto) 0.6 (0.0-0.8) x10E3/uL Eos # [...] Code(s): I25.10 - Atherosclerotic heart disease of [place] coronary artery without angina pectoris (4) Diabetes: Code(s): E11.9 - Type 2 diabetes mellitus without complications (5) HTN (hypertension): Code(s): I10 - Essential (primary) hypertension Documented By: Gen Bolivar DO 06/24/21 1248 Signed By: <Electronically signed by Gen Bolivar DO> 06/24/21 0010 [facility] Work Phone: 1(831) 858-250205-06-2022 Procedure [facility]05-06-2022 Procedure [facility]05-06-2022 History and physical note Author Xander Nam [facility] June 24, 2021 6:14am Note Date/Time June 24, 2021 5:14am [facility] [address] [place] [address] Hospitalist H&P Signed Patient: Elif Turner MR#: [id number] : 1945 Acct:[id number] Age/Sex: 75 / F Adm Date: 2 Loc: 4 Room: [address] [place] [address] Type : ADM IN Attending Dr: Xander [...] type II, fibromyalgia, CKD who presented to [facility] yesterdaywith intermittent chest pain that started in the afternoon while she was watching TV with associated shortness of breath. She described this pain as pressure that involved her left chest as well as left breast and axilla. She presented to the [facility] emergency department and blood pressure was 160/71 [...] and 12 units/kg/h. She was transferred to [facility] for cardiac care for NSTEMI. The patient denied fever/chills, N/V, constipation/diarrhea. She does have history of chronic headaches however notes worsening of headache since yesterday. She does take Lasix as well with as needed for pedal edema. On evaluation at [facility], patient continues to endorse resting chest pain however diminished since initial presentation at [facility]. Per RN she was saturating 94% on [...] yesterday afternoon. ?Chest x-ray unremarkable ?EKG at [facility] normal sinus rhythm with no acute ischemia ?At [facility] troponin 162.6 with repeat 658.9. Repeat at [facility] ordered. ?Patient received bolus porcine heparin at 60 units/kg at [facility] with maintenance at 12 units/kg/h. Maintenance will be continued here. ?Coreg initiated at 12.5 mg twice daily. We will hold amlodipine pending cardiology recommendation. ?Continue losartan. ? Hold amlodipine and lasix pending cardiology consult. ?Cardiology consult ?Morphine for severe pain. Target pulse ox greater than 90%. Nitro for worsening chest pain. Received 324 mg aspirin at [facility]. 2. Coronary artery disease ?Status post 2 stents 5 and 7 years ago respectively per patient ?Continue atorvastatin 40 mg and 81 mg aspirin 3. Diabetes ?Hold home metformin and glipizide ?Initiate basal detemir 10 units with sliding scale coverage 4. CKD ?BUN 32 and creatinine 2.05 at [facility] yesterday Continue home medications. PT/OT Full code Rapid COVID-negative at [facility] Attending Provider Attestation Attending Physician Attestation: I personally saw this patient on the day of the encounter, reviewed the history,performed the cruz elements of the exam, formulated the plan of care and confirmed the resident's/fashion intern/medical student's dictation/written note. Documented By: Marlon Leon DO, JOSE DE JESUS 06/24/21 050 4 Signed By: <Electronically signed by DO JOSE DE JESUS Leon> 06/24/21 0537 <Electronically signed by Xander Ortiz MD> 06/24/21 0614 [facility] Work Phone: 1(870) 217-957411-30-2021 NoteChief Complaint consultation for epigastric pain HPI Staff 75 year old female presents on consultation from Dr. Adballa for epigastric pain, decreased appetite and nausea. [...] Flonase 0.05 mg/inh nasa (more content not included)...[facility] AndersonComment on above:Result Comment: Electronically Signed By: ANGEL BARRIOS, Neel Gamboa\Date and Time Signed: 01/18/21 20:28 ESTDischarge summary Author Rusty Amor [facility] June 25, 2021 1:30pm Note Date/Time June 25, 2021 1:30pm [facility] [address] [place] [address] Discharge Summary Signed Patient: Elif Turner MR#: [id number] : 1945 Acct:[id number] Age/Sex: 75 / F Adm Date: 2 Loc: Room: [address] [place] [address]: Rusty Amor MD Copies to: [...] She presented to the emergency department of [facility] on June 24, complaining of chest discomfort. Her troponins were abnormal. She was transferred to our hospital with a diagnosis of non-STEMI. [facility] was taken to [facility] on [facility], where she underwent coronary [...] W Domingo Bolivar DO s 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 1st Vessel RCA BAMBI - W Domingo Bolivar DO Diagnostic Studies Completed and Pending Studies [...] % (Auto) 90.9, Lymph % (Auto) 4.3, [place] % (Auto) 4.5, Eos % (Auto) 0.0, Baso % (Auto) 0.3, Neut # (Auto) 9.6 H, Lymph # (Auto) 0.4 L, [place] # (Auto)0.5, Eos # (Auto) 0.0, Baso [...] doctor or pharmacist, without first calling the cost controller who implanted the stent. If you require [...] weight lifting, stair steppers, etc. until the cost controller approves these activities. Check with the cost controller on your first follow-up visit. CALL YOUR PHYSICIAN at [phone]: -If bleeding should occur from the catheter insertion site- apply pressure to the site then immediately call us. -Report any fever, redness, drainage, increased swelling, or firmness at the catheter insertion site. Some bruising or slight swelling may be present at thetime of discharge. -Should arm or leg become cold, numb, white, or blue, contact the cost controller immediately. -IF you should experience episodes of [...] is recommended. Please call Central Scheduling at [phone] to schedule your appointment.] The attending cost controller or [facility] nurse clinician should provide you with specific instructions regarding activity, diet, medications, and further follow up for you. Follow the medication instructions provided on your discharge. If the dosages and instructions on this sheet differ from the dosage and instructions on the bottle, follow the instructions on the bottle. [facility] is not responsible for incorrect prescription information [...] Sunday to schedule follow- up with your Business Representative. ) Documented By: Rusty Amor MD 06/25/21 1326 Signed By: <Electronically signed by Rusty Amor MD> 06/25/21 1338 [facility] Work Phone: Evaluation note* Diagnosis Chest pain, unspecified type- Primary PND (paroxysmal nocturnal dyspnea) Other dyspnea and respiratory abnormality documented in [facility] Diagnosis Onset Date Resolution Status CAD (coronary artery disease) acute Chronic kidney disease acute Depression acute Diabetes acute Fibromyalgia acute GERD (gastroesophageal reflux disease) acute HTN (hypertension) acute NSTEMI (non-ST elevated myocardial infarction) acute [facility] Work Phone: Hospital Discharge instructionsAmbulatory Orders* Initiate [...] doctor or pharmacist, without first calling the cost controller who implanted the stent. If you require [...] weight lifting, stair steppers, etc. until the cost controller approves these activities. Check with the cost controller on your first follow-up visit. CALL YOUR PHYSICIAN at [phone]: -If bleeding should occur from the catheter insertion site- apply pressure to the site then immediately call us. -Report any fever, redness, drainage, increased swelling, or firmness at the catheter insertion site. Some bruising or slight swelling may be present at the time of discharge. -Should arm or leg become cold, numb, white, or blue, contact the cost controller immediately. -IF you should experience episodes of [...] is recommended. Please call Central Scheduling at [phone] to schedule your appointment.] The attending cost controller or [facility] nurse clinician should provide you with specific instructions regarding activity, diet, medications, and further follow up for you. Follow the medication instructions provided on your discharge. If the dosages and instructions on this sheet differ from the dosage and instructions on the bottle, follow the instructions on the bottle. [facility] is not responsible for incorrect prescription information provided by the patient during their visit. Do not stop your medications without consulting your health care provider. Please take the list with you to your next doctor's appointment. Home Health to manage care: - Full code - PT/OT eval and treat - Routine vital signsOhio[facility] Work Phone: Summary Purpose Family History No [...] section and content) DATE CREATED AUTHOR 09/19/2017 [facility] DATE CREATED AUTHOR AUTHOR'S ORGANIZ ATION 11/23/2019 [facility] DATE CREATED AUTHOR AUTHOR'S ORGANIZ ATION 05/07/2021 [facility] DATE CREATED AUTHOR AUTHOR'S ORGANIZ ATION 07/30/2021 [facility] DATE CREATED AUTHOR AUTHOR'S ORGANIZ ATION 03/25/2022 [facility] DATE CREATED AUTHOR AUTHOR'S ORGANIZ ATION 07/05/2022 [facility] DATE CREATED AUTHOR AUTHOR'S ORGANIZ ATION 08/21/2023 [facility] DATE CREATED AUTHOR AUTHOR'S ORGANIZ ATION 11/14/2023 [facility] EPIC Reason for Visit (unrecogniz [...] BE BASED ON THE PRIMARY CLINICAL RECORDS. [facility] [employer] [facility]. provides no warranty or guarantee of the accuracy or completeness of information in this document.
--- NOTE | 2023-11-18 09:26 | XR_ITS ---
The [address] [address] Patient Name: RIVKA TURNER MRN: [id number] date: 1945 Sex: F Assigned Patient Location: ED.MAIN Current Patient Location: ER Accession/Order Number: [id number] Exam Date: 11/18/2023 10:10 Report Date: 11/18/2023 10:56 At the request of: TRENTON COLLINS Procedure: XR chest 1V EXAM: CHEST 1 VIEW HISTORY: fall, weak TECHNIQUE: Chest, one view. COMPARISON: None. FINDINGS: Lungs are clear. No focal consolidation, pleural effusion, or pneumothorax. Calcified left lower lobe granuloma. Pulmonary vasculature is within normal limits. Cardiomediastinal silhouette is normal. XR/XR chest 1V IMPRESSION: 1. No acute cardiopulmonary disease. Electronically authenticated by: ROBERTA BERMUDEZ Date: 11/18/2023 10:56
--- NOTE | 2023-11-18 09:26 | CT_ITS ---
The [address] [address] Patient Name: RIVKA TURNER MRN: [facility]:[id number] date: 1945 Sex: F Assigned Patient Location: ED.MAIN Current Patient Location: Accession/Order Number: [id number] Exam Date: 11/18/2023 10:10 Report Date: 11/18/2023 10:54 At the request of: TRENTON COLLINS Procedure: CT cervical spine wo con EXAM: CT head/brain wo con, CT cervical spine wo con HISTORY: fall, hit head COMPARISON: CT head and cervical spine 05/13/2022, MR brain 07/03/2022. TECHNIQUE: Axial noncontrast CT imaging of the cervical spine was performed with sagittal reformats. This CT exam was performed using one or more of the following dose reduction techniques: Automated exposure control, adjustment of the MA and/or kV according to patient size, or use of iterative reconstruction technique. FINDINGS: CT head Calvarium/skull base: No evidence of acute fracture or destructive lesion. Paranasal sinuses: No air fluid levels. Brain: No acute intracranial hemorrhage. No acute large vascular territory infarct. Stable appearance of benign dural calcification versus a partially calcified meningioma along the right posterior frontal convexity measuring 6 mm in diameter without mass effect on adjacent brain parenchyma. 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 Moderate parenchymal volume loss with associated prominence of the ventricular system and sulci superiorly. No hydrocephalus. CT cervical spine Alignment: No substantial subluxation. Vertebrae: Vertebral body heights are maintained. No fracture. There is fusion across the C2-C3 facet joints bilaterally. Craniocervical junction: No focal abnormality. Degenerative changes: Minimal degenerative change of the cervical spine without substantial canal stenosis. Multilevel mild uncovertebral and facet arthropathy without substantial foraminal stenosis. Additional Comments: Vascular sclerosis. Visualized portion of the upper lungs are clear. CT/CT cervical spine wo con IMPRESSION: 1. No acute intracranial process. 2. Stable appearance of posterior fossa arachnoid cyst with unchanged deformity of the adjacent cerebellum table from 2022. No parenchymal edema. 3. No acute fracture or malalignment of the cervical spine. Electronically authenticated by: BRONSON RAO Date: 11/18/2023 10:54
--- NOTE | 2023-11-18 09:26 | ECG_ITS ---
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
--- NOTE | 2023-11-18 09:26 | XR_ITS ---
The [address] [address] Patient Name: RIVKA TURNER MRN: [id number] date: 1945 Sex: F Assigned Patient Location: ED.MAIN Current Patient Location: ER Accession/Order Number: [id number] Exam Date: 11/18/2023 10:10 Report Date: 11/18/2023 11:01 At the request of: TRENTON COLLINS Procedure: XR hip LT min 2V EXAM: XR hip LT min 2V HISTORY: Fall; technologist notes state left hip pain following a fall and unable to get up for 2 days. COMPARISON: None. TECHNIQUE: AP and lateral views of the left hip performed. FINDINGS: The bony alignment is anatomic. The bony structures are osteopenic. There is no fracture. There are mild degenerative changes at the left hip joint. There is enthesophyte formation at the greater trochanter. Visualized portions of the sacrum and sacral joints are unremarkable. The symphysis is unremarkable. There are atheromatous calcifications. XR/XR hip LT min 2V IMPRESSION: There is no acute fracture or malalignment. A CT examination of the pelvis could be performed for more detailed evaluation if there is any clinical suspicion for a radiographically occult fracture. Electronically authenticated by: GEETA FORDE Date: 11/18/2023 11:01
--- NOTE | 2023-11-18 09:27 | CT_ITS ---
The [address] [address] Patient Name: RIVKA TURNER MRN: [facility]:[id number] date: 1945 Sex: F Assigned Patient Location: ED.MAIN Current Patient Location: Accession/Order Number: [id number] Exam Date: 11/18/2023 10:10 Report Date: 11/18/2023 10:54 At the request of: TRENTON COLLINS Procedure: CT head/brain wo con EXAM: CT head/brain wo con, CT cervical spine wo con HISTORY: fall, hit head COMPARISON: CT head and cervical spine 05/13/2022, MR brain 07/03/2022. TECHNIQUE: Axial noncontrast CT imaging of the cervical spine was performed with sagittal reformats. This CT exam was performed using one or more of the following dose reduction techniques: Automated exposure control, adjustment of the MA and/or kV according to patient size, or use of iterative reconstruction technique. FINDINGS: CT head Calvarium/skull base: No evidence of acute fracture or destructive lesion. Paranasal sinuses: No air fluid levels. Brain: No acute intracranial hemorrhage. No acute large vascular territory infarct. Stable appearance of benign dural calcification versus a partially calcified meningioma along the right posterior frontal convexity measuring 6 mm in diameter without mass effect on adjacent brain parenchyma. 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 Moderate parenchymal volume loss with associated prominence of the ventricular system and sulci superiorly. No hydrocephalus. CT cervical spine Alignment: No substantial subluxation. Vertebrae: Vertebral body heights are maintained. No fracture. There is fusion across the C2-C3 facet joints bilaterally. Craniocervical junction: No focal abnormality. Degenerative changes: Minimal degenerative change of the cervical spine without substantial canal stenosis. Multilevel mild uncovertebral and facet arthropathy without substantial foraminal stenosis. Additional Comments: Vascular sclerosis. Visualized portion of the upper lungs are clear. CT/CT head/brain wo con IMPRESSION: 1. No acute intracranial process. 2. Stable appearance of posterior fossa arachnoid cyst with unchanged deformity of the adjacent cerebellum table from 2022. No parenchymal edema. 3. No acute fracture or malalignment of the cervical spine. Electronically authenticated by: BRONSON RAO Date: 11/18/2023 10:54
--- NOTE | 2023-11-18 09:28 | ED_ITS ---
HPI HPI - General Adult General Chief complaint: Fall Stated complaint: fall Time Seen by Provider: 11/18/23 09:08 Source: patient Mode of arrival: ambulance Limitations: no limitations History of Present Illness HPI narrative: 78-year-old female presented to the emergency department for weakness. She was in her home and was trying to get from her bed to the commode when she fell about 56 hours ago. She was unable to get herself up and she did not have her medical alert alarm on her. She could not get to a phone. She states she scooted around but could not get herself up. Eventually she was able to get herself to the front door and she was yelling out the door and a passerby heard her and called an ambulance. She is complaining of some pain to the left hip and has a bruise and some pain to the posterior neck. She states when she fell she hit her forehead. Related Data Allergies Allergy/AdvReac Type Severity Reaction Status Date / Time cyclobenzaprine Allergy Severe Rash Verified 11/18/23 09:28 [From Flexeril] ethinyl estradiol Allergy Severe Swelling Verified 11/18/23 09:33 [From Trivora (28)] of Lip/Tongue/Throat exenatide [From Byetta] Allergy Severe Rash Verified 11/18/23 09:28 Iodinated Contrast Media Allergy Severe Rash Verified 11/18/23 09:28 levonorgestrel Allergy Severe Swelling Verified 11/18/23 09:33 [From Trivora (28)] of Lip/Tongue/Throat Penicillins Allergy Severe Rash Verified 11/18/23 09:28 prochlorperazine Allergy Severe Confusion Verified 11/18/23 09:28 [From Compazine] clindamycin [From Cleocin] AdvReac Severe esophagus Verified 11/18/23 09:28 spasms doxycycline AdvReac Severe Nausea Verified 11/18/23 09:28 levofloxacin AdvReac Severe Nausea Verified 11/18/23 09:28 ticagrelor [From Brilinta] AdvReac Severe Vomiting Verified 11/18/23 09:28 trazodone AdvReac Severe Nausea Verified 11/18/23 09:28 Opioid HPI Opioid Management Most Recent Opioid Data: No Data to Display Review of Systems ROS Narrative A ten point review of systems is negative except as noted above. PFSH PFSH Social History Little interest or pleasure in doing things: not at all Feeling down, depressed, or hopeless: not at all Exam Narrative Exam Narrative: Nurses note and vital signs reviewed and patient is not hypoxic. General: The patient appears generally weak and is quite tremorous. Skin: Warm, dry, no pallor noted. There is no rash noted. Head: Normocephalic, atraumatic Eye: Normal conjunctiva, no drainage Ears, Nose, Mouth, and Throat: oral mucosa is moist. Nares patent. Cardiovascular: Regular Rate and Rhythm Respiratory: Patient is in no distress, no accessory muscle use, lungs are clear to auscultation, no wheezing, rales or rhonchi Back: non-tender GI: Soft and nontender Musculoskeletal: Bruising and some tenderness present at the left hip. She has tenderness of the posterior C-spine. She has mild bruising on the dorsum of her left hand but states there is no tenderness and she has full range of motion there of her fingers. Neurological: Awake alert and oriented. Tremorous. Psychiatric: Cooperative Constitutional Vital Signs, click to edit/add: Last Vital Signs Temp 99.2 F 11/18/23 09:07 Pulse 92 H 11/18/23 11:31 Resp 24 H 11/18/23 11:31 BP 231/88 H 11/18/23 11:31 Pulse Ox 96 11/18/23 11:31 O2 Del Method Room Air 11/18/23 09:07 Course Vital Signs Vital signs: Vital Signs Temperature 99.2 F 11/18/23 09:07 Pulse Rate 90 11/18/23 09:07 Respiratory Rate 24 H 11/18/23 09:07 Blood Pressure 204/104 H 11/18/23 09:07 Pulse Oximetry 98 11/18/23 09:07 Oxygen Delivery Method Room Air 11/18/23 09:07 Temperature 99.2 F 11/18/23 09:07 Pulse Rate 92 H 11/18/23 11:31 Respiratory Rate 24 H 11/18/23 11:31 Blood Pressure 231/88 H 11/18/23 11:31 Pulse Oximetry 96 11/18/23 11:31 Oxygen Delivery Method Room Air 11/18/23 09:07 Medical Decision Making MDM Narrative Medical decision making narrative: The patient fell in her home and was on her floor for an extended period of time and she has rhabdomyolysis. She was given IV fluids. No source of infection is noted. She is being admitted and findings are discussed with the patient. Differential Diagnosis Differential Diagnosis: Fall, hip fracture, rhabdomyolysis, acute kidney injury Lab Data Lab results reviewed: Yes I reviewed the patient's lab results Labs: Lab Results 11/18/23 11/18/23 11/18/23 Range/Units 09:45 09:58 10:10 WBC 15.5 H (4.0-11.0) 10^3/uL RBC 4.45 (4.20-5.40) 10^6/uL Hgb 14.0 (12.0-16.0) g/dL Hct 42.7 (36.0-48.0) % MCV 96.0 (81.0-99.0) fL MCH 31.5 (26.7-34.0) pg MCHC 32.8 (29.9-35.2) g/dL RDW 11.8 (11.0-15.0) % Plt Count 258 (150-450) 10^3/uL MPV 10.5 (9.5-13.5) fL Neut % (Auto) 83.7 H (43.0-75.0) % Lymph % (Auto) 6.9 L (20.5-60.0) % [place] % (Auto) 7.8 (1.7-12.0) % Eos % (Auto) 0.2 L (0.9-7.0) % Baso % (Auto) 0.6 (0.2-2.0) % Neut # (Auto) 12.9 H (1.4-6.5) 10^3/uL Lymph # (Auto) 1.1 L (1.2-3.8) 10^3/uL [place] # (Auto) 1.2 H (0.3-0.8) 10^3/uL Eos # (Auto) 0.0 (0.0-0.7) 10^3/uL Baso # (Auto) 0.1 (0.0-0.1) 10^3/uL Abs Immat Gran (auto) 0.13 H (0.00-0.03) 10^3/uL Imm/Tot Granulo (auto) 0.8 H (0.0-0.5) % Sodium 135 L (136-145) mmol/L Potassium 4.1 (3.5-5.1) mmol/L Chloride 100 (98-107) mmol/L Carbon Dioxide 25.1 (21.0-32.0) mmol/L Anion Gap 14.0 BUN 28.0 H (7.0-18.0) mg/dL Creatinine 1.85 H (0.55-1.02) mg/dL Est GFR ( Amer) 32 L (>=60) Est GFR (Non-Af Amer) 27 L (>=60) BUN/Creatinine Ratio 15.1 Glucose 394 H (74-106) mg/dL Calcium 10.2 H (8.5-10.1) mg/dL Total Creatine Kinase 340 H* (26-192) U/L Myoglobin 1246 H* (9-82) ng/mL Troponin I High Sens 58.5 H* (4.0-51.3) pg/mL Urine Color Yellow (YELLOW) Urine Clarity Clear (CLEAR) Urine pH 6.5 (5.0-9.0) Ur Specific [place] 1.020 (1.005-1.025) Urine Protein >=300 A (NEG/TRACE) mg/dL Urine Glucose (UA) >=1000 A (NEGATIVE) mg/dL Urine Ketones Trace A (NEGATIVE) mg/dL Urine Occult Blood Moderate A (NEGATIVE) Urine Nitrite Negative (NEGATIVE) Urine Bilirubin Small A (NEGATIVE) Urine Urobilinogen 1.0 (0.2-1.0) EU/dL Ur Leukocyte Esterase Negative (NEGATIVE) Urine RBC None seen (0-2) #/HPF Urine WBC 0-2 A (NONE SEEN) #/HPF Ur Squamous Epith Cells Few A (NONE/RARE) #/LPF Ur Transition Epith Cell Rare A (NONE SEEN) #/LPF Urine Crystals Seen A (None Seen) #/HPF Amorphous Sediment Many Urine Bacteria Moderate A (NONE SEEN) #/HPF Urine Casts None seen (NONE SEEN) #/LPF Urine Mucus Trace A (NONE SEEN) Ur Culture Indicated? Yes 11/18/23 Range/Units 10:50 WBC (4.0-11.0) 10^3/uL RBC (4.20-5.40) 10^6/uL Hgb (12.0-16.0) g/dL Hct (36.0-48.0) % MCV (81.0-99.0) fL MCH (26.7-34.0) pg MCHC (29.9-35.2) g/dL RDW (11.0-15.0) % Plt Count (150-450) 10^3/uL MPV (9.5-13.5) fL Neut % (Auto) (43.0-75.0) % Lymph % (Auto) (20.5-60.0) % [place] % (Auto) (1.7-12.0) % Eos % (Auto) (0.9-7.0) % Baso % (Auto) (0.2-2.0) % Neut # (Auto) (1.4-6.5) 10^3/uL Lymph # (Auto) (1.2-3.8) 10^3/uL [place] # (Auto) (0.3-0.8) 10^3/uL Eos # (Auto) (0.0-0.7) 10^3/uL Baso # (Auto) (0.0-0.1) 10^3/uL Abs Immat Gran (auto) (0.00-0.03) 10^3/uL Imm/Tot Granulo (auto) (0.0-0.5) % Sodium (136-145) mmol/L Potassium (3.5-5.1) mmol/L Chloride (98-107) mmol/L Carbon Dioxide (21.0-32.0) mmol/L Anion Gap BUN (7.0-18.0) mg/dL Creatinine (0.55-1.02) mg/dL Est GFR ( Amer) (>=60) Est GFR (Non-Af Amer) (>=60) BUN/Creatinine Ratio Glucose (74-106) mg/dL Calcium (8.5-10.1) mg/dL Total Creatine Kinase (26-192) U/L Myoglobin (9-82) ng/mL Troponin I High Sens 55.3 H* (4.0-51.3) pg/mL Urine Color (YELLOW) Urine Clarity (CLEAR) Urine pH (5.0-9.0) Ur Specific [place] (1.005-1.025) Urine Protein (NEG/TRACE) mg/dL Urine Glucose (UA) (NEGATIVE) mg/dL Urine Ketones (NEGATIVE) mg/dL Urine Occult Blood (NEGATIVE) Urine Nitrite (NEGATIVE) Urine Bilirubin (NEGATIVE) Urine Urobilinogen (0.2-1.0) EU/dL Ur Leukocyte Esterase (NEGATIVE) Urine RBC (0-2) #/HPF Urine WBC (NONE SEEN) #/HPF Ur Squamous Epith Cells (NONE/RARE) #/LPF Ur Transition Epith Cell (NONE SEEN) #/LPF Urine Crystals (None Seen) #/HPF Amorphous Sediment Urine Bacteria (NONE SEEN) #/HPF Urine Casts (NONE SEEN) #/LPF Urine Mucus (NONE SEEN) Ur Culture Indicated? Imaging Data Chest x-ray: Radiologist's impression: ITS Impressions Cervical Spine CT 11/18/23 09:26 IMPRESSION: 1. No acute intracranial process. 2. Stable appearance of posterior fossa arachnoid cyst with unchanged deformity of the adjacent cerebellum table from 2022. No parenchymal edema. 3. No acute fracture or malalignment of the cervical spine. Electronically authenticated by: BRONSON RAO Date: 11/18/2023 10:54 Chest X-Ray 11/18/23 09:26 IMPRESSION: 1. No acute cardiopulmonary disease. Electronically authenticated by: ROBERTA BERMUDEZ Date: 11/18/2023 10:56 Hip X-Ray 11/18/23 09:26 IMPRESSION: There is no acute fracture or malalignment. A CT examination of the pelvis could be performed for more detailed evaluation if there is any clinical suspicion for a radiographically occult fracture. Electronically authenticated by: GEETA FORDE Date: 11/18/2023 11:[address] 11/18/23 09:27 IMPRESSION: 1. No acute intracranial process. 2. Stable appearance of posterior fossa arachnoid cyst with unchanged deformity of the adjacent cerebellum table from 2022. No parenchymal edema. 3. No acute fracture or malalignment of the cervical spine. Electronically authenticated by: BRONSON RAO Date: 11/18/2023 10:54 ECG Data Attestation: I personally reviewed and interpreted this ECG as follows: (EKG on my interpretation shows sinus rhythm with a rate of 84 no acute changes. A PVC is present.) Discharge Plan Discharge Chief Complaint: Fall Clinical Impression: Fall, Rhabdomyolysis Patient Disposition: Admitted As Inpatient Time of Disposition Decision: 11:55 Condition: Fair Print Language: Telugu Referrals: Amador Lopez MD [Primary Care Provider] - 1 week
[2023-11-18 10:04] LABS: Basophils Absolute Auto 0.1 10^3/uL (0.0-0.1); Basophils Percent Auto 0.6 % (0.2-2.0); Eosinophils Percent Auto 0.2 % (0.9-7.0); Hematocrit 42.7 % (36.0-48.0); Immature Granulocytes Abs Auto 0.13 10^3/uL (0.00-0.03); Immature Granulocytes Pct Auto 0.8 % (0.0-0.5); Lymphocytes Absolute Auto 1.1 10^3/uL (1.2-3.8); Lymphocytes Percent Auto 6.9 % (20.5-60.0); Mean Corpuscular HGB Conc 32.8 g/dL (29.9-35.2); Mean Corpuscular Hemoglobin 31.5 pg (26.7-34.0); Mean Platelet Volume 10.5 fL (9.5-13.5); Monocytes Absolute Auto 1.2 10^3/uL (0.3-0.8); Monocytes Percent Auto 7.8 % (1.7-12.0); Neutrophils Absolute Auto 12.9 10^3/uL (1.4-6.5); Neutrophils Percent Auto 83.7 % (43.0-75.0); Platelet Count 258 10^3/uL (150-450); Red Blood Count 4.45 10^6/uL (4.20-5.40); Red Cell Distribution Width 11.8 % (11.0-15.0); White Blood Count 15.5 10^3/uL (4.0-11.0)
[2023-11-18 10:28] LABS: BUN Creatinine Ratio 15.1; Calcium 10.2 mg/dL (8.5-10.1); Carbon Dioxide 25.1 mmol/L (21.0-32.0); Chloride 100 mmol/L (98-107); Estimated GFR (African America 32 (>=60); Estimated GFR (Non-African Ame 27 (>=60); Glucose 394 mg/dL (74-106); Potassium 4.1 mmol/L (3.5-5.1); Sodium 135 mmol/L (136-145)
[2023-11-18 10:34] LABS: Bilirubin Urine SMALL (NEGATIVE); Blood Urine MODERATE (NEGATIVE); Clarity Urine CLEAR (CLEAR); Color Urine YELLOW (YELLOW); Glucose Urine UA >=1000 mg/dL (NEGATIVE); Ketones Urine TRACE mg/dL (NEGATIVE); Leukocyte Esterase Urine NEGATIVE (NEGATIVE); Nitrite Urine NEGATIVE (NEGATIVE); Protein Urine >=300 mg/dL (NEG/TRACE); pH Urine 6.5 (5.0-9.0)
[2023-11-18 10:37] LABS: Creatine Kinase 340 U/L (26-192); Myoglobin 1246 ng/mL (9-82); Troponin I High Sensitivity 58.5 pg/mL (4.0-51.3)
[2023-11-18 10:43] LABS: RBC Urine NONE SEEN #/HPF (0-2); WBC Urine 0-2 #/HPF (NONE SEEN)
[2023-11-18 10:44] LABS: Cast Seen? NONE SEEN #/LPF (NONE SEEN); Crystals Seen? Seen #/HPF (None Seen); Mucus Urine TRACE (NONE SEEN); Squamous Epithelial Cell Urine FEW #/LPF (NONE/RARE); Transitional Epi Cells Urine RARE #/LPF (NONE SEEN); Urine Culture Indicated YES
[2023-11-18 10:45] LABS: Amorphous Sediment Urine MANY; Bacteria Urine MODERATE #/HPF (NONE SEEN)
[2023-11-18] MEDS: 0.9 % SODIUM CHLORIDE 1,000 ML 200 ML IV (10:58)
[2023-11-18 11:34] LABS: Troponin I High Sensitivity 55.3 pg/mL (4.0-51.3)
--- OUTSIDE RECORDS SUMMARY | 2023-11-18 12:55 | XMS_ITS | CCD ---
Author Organization [facility] Inform ion Partnership [facility] Care Team Providers Care Coal Handler Name Role Phone CHIDI MELLO Unavailable Unavailable [...] Provider MD Isabel Beckwith Other Provider [phone] MD Rufus Sauceda Other Provider ARIEL Resendiz Other Provider MD Latosha Figueroa Other Provider MD Dinora Haynes Other Provider MD Rahul Hi Other Provider MD Rusty Amor Attending Provider [phone] PROVIDER, UNKNOWN Attending Unavailable PROVIDER, UNKNOWN Admitting [...] Contrast media; Translations: [DYE] Substance Allergy 06-03-19 [facility] Repository cyclobenzaprine (1 source) cyclobenzaprine; Translations: [CYCLOBENZAPRINE] Drug Allergy 12-12-19 13 [facility] Repository Doxycycline (1 source) Doxycycline; Translations: [DOXYCYCLINE] Drug Allergy 12-22-19 [facility] Repository exenatide (1 source) exenatide; Translations: [EXENATIDE] Drug Allergy 12-28-19 13 [facility] Repository Lincosamides (antibiotic) (1 source) Clindamycin; Translations: [CLINDAMYCIN] Drug Allergy 05-27-19 [facility] Repository Opioid Agonists (1 source) Codeine; Translations: [CODEINE] Drug Allergy 12-28-19 [facility] Repository Penicillins (antibiotic) (1 source) Penicillins; Translations: [PENICILLINS] Drug Allergy 12-12-19 13 [facility] Repository Prochlorperazine (1 source) Prochlorperazine; Translations: [PROCHLORPERAZINE] Drug Allergy 12-12-19 13 [facility] Repository Serotonin Reuptake Inhibitors (SSRIs) (1 source) traZODone; Translations: [TRAZODONE] Drug Allergy 12-19-19 [facility] Repository Sucralfate (1 source) Sucralfate; Translations: [SUCRALFATE] Drug Allergy 12-22-19 [facility] Repository Ticagrelor (1 source) Ticagrelor; Translations: [TICAGRELOR] Drug Allergy 06-03-19 [facility] Repository Unclassified (1 source) OTHER; Translations: [OTHER] Propensity to adverse reactions (disorder) 12-12-19 13 [facility] Repository (4 sources) Clindamycin Drug Allergy 04-05-19 16 Difficulty Swallowing [facility] Repository (1 source) Codeine Drug Allergy 12-31-19 09 [facility] Rep[facility] (1 source) cyclobenzaprine Drug Allergy 12-31-19 09 [facility] (3 sources) exenatide Drug Allergy 08-26-19 17 [facility] Rep[facility] (3 sources) Penicillins Drug allergy (disorder) 12-31-19 09 Itching [facility] Rep[facility] (1 source) Prochlorperazine Drug Allergy 12-31-19 09 [facility] (2 sources) Iodinated Contrast Media - IV Dye Drug allergy (disorder) 12-31-19 09 [facility] Rep[facility] (1 source) trival; Translations: [trival] Propensity to adverse reactions (disorder) 12-17-19 13 [facility] Repository (4 sources) Amoxicillin; Translations: [amoxicillin] Drug Allergy 06-25-19 Unknown Reaction [facility] (4 sources) cyclobenzaprine; Translations: [cyclobenzaprine] Drug Allergy 06-25-19 Itching [facility] (5 sources) Doxycycline; Translations: [doxycycline] Drug Allergy 06-25-19 Unknown Reaction [facility] (4 sources) exenatide; Translations: [exenatide] Drug Allergy 06-25-19 Rash [facility] (4 sources) Prochlorperazine; Translations: [prochlorperazine] Drug Allergy 05-06-20 22 Cramping of the Muscles [facility] (5 sources) Sucralfate; Translations: [sucralfate] Drug Allergy 06-25-19 Nausea [facility] (6 sources) traZODone; Translations: [trazodone] Drug Allergy 06-25-19 22 Nausea [facility] (3 sources) Iodinated Contrast Media; Translations: [Iodinated Contrast Media] Allergy to substance 02-07-20 14 Itching [facility] (2 sources) Clindamycin; Translations: [clindamycin] [facility] (2 sources) Penicillins; Translations: [Penicillins] Allergy to drug ([facility]) [facility] [place] [facility] Work Phone: (1 source) Clindamycin Drug Allergy 06-25-19 [facility] Repository (1 source) Penicillins Drug allergy (disorder) 06-25-19 [facility] Repository (1 source) Clindamycin Drug Allergy [facility] Repository (1 source) cyclobenzaprine Drug Allergy [facility] Repository (1 source) Levamisole Drug Allergy 12-03-19 21 [facility] Repository (1 source) liraglutide Drug Allergy 07-16-19 22 [facility] Repository (1 source) Prochlorperazine Drug Allergy [facility] Repository (2 sources) Trivora (28) Drug allergy (disorder) [facility] Repository (1 source) Misc-Drug Drug allergy (disorder) [facility] Repository Medications Current Medications Medication Drug [...] Coronary arteriosclerosis; 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] Onset: 2 [...] 3 Chronic Other aftercare (1 source) Other terminal system operator (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) drug therapy; Translations: [OTH [employer] CURRENT DRUG THERAPY] Onset: 3 Episodic Other aftercare (1 source) terminal operator (current) use of aspirin; Translations: [[employer] CURRENT USE OF ASPIRIN] Onset: 3 Episodic [...] Onset: 08-16-2021 Episodic Other aftercare (1 source) correction (current) use of oral hypoglycemic drugs; Translations: [USP USE ORAL HYPOGLYCEMIC DX] Onset: 08-18-2021 Episodic [...] Range Facility Office Visiton 08-20-2023 Follow-up visit [id number] Irma Turner 1945 F Date Provider Department Center 08/20/2023 CAROLINA MARCOS CHARLES Arnold Family History Problem Relation Age of Onset Breast cancer Mother Stroke Father Family Status - Relation Status Age at Mother Father Level of Service:68078 AL OFFICE/OUTPATIENT ESTABLISHED MOD MDM 30 MIN Normal [facility] 36on 03-05-2023 36 Please let her know her recent carotid ultrasound showed things were stable. Plan for a follow-up ultrasound in 1 year. Follow-up in 6 months. Thanks! Normal [facility] Telephoneon 03-05-2023 Telephone [id number] Irma Turner 1945 F Date Provider Department Center 03/05/2023 CHRISTOPHER SHIN . Family History Problem Relation Age of Onset Breast cancer Mother Stroke Father Family Status - Relation Status Age at Mother Father Normal [facility] Office Visiton 01-31-2023 Follow-up visit [id number] Irma Turner 1945 Provider Department Center 01/31/2023 CHRISTOPHER SHIN CHARLES [facility] Family History Problem Relation Age of Onset Breast cancer Mother Stroke Father Family Status - Relation Status Age at Mother Father Level of Service:43737 AL OFFICE/OUTPATIENT ESTABLISHED MOD MDM 30-39 MIN Reason for Visit and Comments: Congestive Heart Failure [127] Hypertension [773762] Carotid Artery Disease [453] Normal [facility] Consulton 08-29-2022 Consult [id number] Irma Turner 1945 Provider Department Center 08/29/2022 ALFREDO SAMANIEGO [email or web address] SURG [place] Family History Problem Relation Age of Onset Breast cancer Mother Stroke Father Family Status - Relation Status Age at Mother Father Level of Service:43279 AL OFFICE/OUTPATIENT NEW MODERATE MDM 45-59 MINUTES Normal [facility] MRI BRAIN WO W CONon [...] LISSETTE VILLALOBOS Date: 2022-07-04 09:08 Normal [facility] CREATININEon 07-03-2022 Creatinine [Mass/Vol] 1.87 mg/dL Critically high 0.55-1.02 [facility] Comment on above: Performed By: #### U ARMICR #### [facility] [address] [place] [address] Dr. Gasper Garber EGFR-AF DJIBOUTIAN 32 mL/min/1.73m2 Critically low >=60 [facility] Comment on above: Performed By: #### U ARMICR #### [facility] [address] [place] [address] Dr. Gasper Garber EGFR-NON AF DJIBOUTIAN 26 mL/min/1.73m2 Critically low >=60 [facility] Comment on above: Performed By: #### U ARMICR #### [facility] [address] [place] [address] Dr. Gasper Garber UA (CLEAN/CATCH) MICROSCOPIC IF INDICATEon 05-26-2022 Bilirubin Ql (U) Negative Normal NEGATIVE [facility] Comment on above: Performed By: #### U ARMICR #### [facility] [address] [place] [address] Dr. Gasper Garber Clarity (U) CLEAR Normal CLEAR [facility] Comment on above: Performed By: #### U ARMICR #### [facility] [address] [place] [address] Dr. Gasper Garber Color (U) LT. YELLOW Normal YELLOW [facility] Comment on above: Performed By: #### U ARMICR #### [facility] [address] [place] [address] Dr. Gasper Garber Glucose Ql (U) Negative Normal NEGATIVE [facility] Comment on above: Performed By: #### U ARMICR #### [facility] [address] [place] [address] Dr. Gasper Garber Hemoglobin Ql (U) Negative Normal NEGATIVE The [facility] Comment on above: Performed By: #### U ARMICR #### [facility] [address] [address] [address] Gasper Garber Ketones Ql (U) Negative Normal NEGATIVE [facility] Comment on above: Performed By: #### U ARMICR #### [facility] [address] [place] [address] Dr. Gasper Garber LEUKOCYTES Negative Normal NEGATIVE [facility] Comment on above: Performed By: #### U ARMICR #### [facility] [address] [address] [address] Gasper Garber Nitrite Ql (U) Negative Normal NEGATIVE [facility] Comment on above: Performed By: #### U ARMICR #### [facility] [address] [place] [address] Dr. Gasper Garber pH (U) 6.5 [pH] Normal 5-9 [facility] Comment on above: Performed By: #### U ARMICR #### [facility] [address] [place] [address] Dr. Gasper Garber SPEC GRAVITY 1.010 Normal 1.005-<=1.[address] [place] [address] Comment on above: Performed By: #### U ARMICR #### [facility] [address] [place] [address] Dr. Gasper Garber UA PROTEIN TRACE Normal NEGATIVE/ TRACE [facility] Comment on above: Performed By: #### U ARMICR #### [facility] [address] [place] [address] Dr. Gasper Garber UR MICRO IND NOT INDICATED Normal [facility] Comment on above: Performed By: #### U ARMICR #### [facility] [address] [place] [address] Dr. Gasper Garber Urobilinogen Qn (U) 0.2 {Kaushik'U}/dL Normal 0.2 - 1. 0 [facility] Comment on above: Performed By: #### U ARMICR #### [facility] [address] [place] [address] Dr. Gasper Garber CULTURE URINEon 05-16-2022 CULTURE [...] S F Nitrofurantoin <=16 S F Normal [facility] Comment on above: Performed By: #### U RCX #### [facility] [address] [place] [address] Dr. Gasper Garber MAGNESIUMon 05-16-2022 Magnesium [Mass/Vol] 2.0 mg/dL Normal 1.8-2.4 [facility] Comment on above: Performed By: #### TONI MALDONADORO #### [facility] [address] [place] [address] Dr. Gasper Garber CBC AUTO DIFFon 05-15-2022 BASO # 0.0 103/ul Normal 0.0-0.1 [facility] Comment on above: Performed By: #### JOANNE MALDONADOICRO #### [facility] [address] [place] [address] Dr. Gasper Garber Basophils/100 WBC (Bld) 0.5 % Normal 0.2-2.0 [facility] Comment on above: Performed By: #### Bernice HERNDON UMICRO #### [facility] [address] [place] [address] Dr. Gasper Garber EO # 0.2 103/ul Normal 0.0-0.7 [facility] Comment on above: Performed By: #### Bernice HERNDON UMICRO #### [facility] [address] [place] [address] Dr. Gasper Garber Eosinophils/100 WBC (Bld) 1.8 % Normal 0.9-7.0 [facility] Comment on above: Performed By: #### Bernice HERNDON UMICRO #### [facility] [address] [place] [address] Dr. Gasper Garber Erythrocyte distribution width (RBC) [Ratio] 12.5 % Normal 11.0-15.0 [facility] Comment on above: Performed By: #### BERNIE MALDONADO #### [facility] [address] [place] [address] Dr. Gasper Garber Hematocrit (Bld) [Volume fraction] 36.1 % Normal 36.0-48.0 [facility] Comment on above: Performed By: #### TONI MALDONADORO #### [facility] [address] [place] [address] Dr. Gasper Garber Hemoglobin (Bld) [Mass/Vol] 11.8 g/dL Critically low 12.0-16.0 [facility] Comment on above: Performed By: #### BERNIE MALDONADO #### [facility] [address] [place] [address] Dr. Gasper Garber IG # 0.02 10e3/ul Normal 0.00-0.03 [facility] Comment on above: Performed By: #### TONI MALDONADORO #### [facility] [address] [place] [address] Dr. Gasper Garber IG % 0.2 % Normal 0.0-0.5 [facility] Comment on above: Performed By: #### TONI MALDONADORO #### [facility] [address] [place] [address] Dr. Gasper Garber LYMPH # 1.2 103/ul Normal 1.2-3.8 [facility] Comment on above: Performed By: #### TONI MALDONADORO #### [facility] [address] [place] [address] Dr. Gasper Garber Lymphocytes/100 WBC (Bld) 14.2 % Critically low 20.5-60.0 [facility] Comment on above: Performed By: #### TONI MALDONADORO #### [facility] [address] [place] [address] Dr. Gasper Garber MANUAL DIFF REQ NO Normal [facility] Comment on above: Performed By: #### TONI MALDONADORO #### [facility] [address] [place] [address] Dr. Gasper Garber MCH (RBC) [Entitic mass] 30.6 pg Normal 26.7-34.0 [facility] Comment on above: Performed By: #### E YANICK, UMICRO #### [facility] [address] [place] [address] Dr. Gasper Garber MCHC (RBC) [Mass/Vol] 32.7 g/dL Normal 29.9-35.2 [facility] Comment on above: Performed By: #### E YANICK, UMICRO #### [facility] [address] [place] [address] Dr. Gasper Garber MCV (RBC) [Entitic vol] 93.8 fL Normal 81.0-99.0 [facility] Comment on above: Performed By: #### E YANICK UMICRO #### [facility] [address] [place] [address] Dr. Gasper Garber MONO # 1.0 103/ul Critically high 0.3-0.8 [facility] Comment on above: Performed By: #### Bernice EHRNDON UMICRO #### [facility] [address] [place] [address] Dr. Gasper Garber Monocytes/100 WBC (Bld) 12.3 % Critically high 1.7-12.0 [facility] Comment on above: Performed By: #### Bernice HERNDON, UMICRO #### [facility] [address] [place] [address] Dr. Gasper Garber NEUT # 5.9 103/ul Normal 1.4-6.5 [facility] Comment on above: Performed By: #### E RUCrystal, UMICRO #### [facility] [address] [place] [address] Dr. Gasper Garber Neutrophils/100 WBC (Bld) 71.0 % Normal 43.0-75.0 [facility] Comment on above: Performed By: #### E RUR, UMICRO #### [facility] [address] [place] [address] Dr. Gasper Garber Platelet mean volume (Bld) [Entitic vol] 11.3 fL Normal 9.5-13.5 [facility] Comment on above: Performed By: #### TONI MALDONADORO #### [facility] [address] [place] [address] Dr. Gasper Garber PLT 237 103/ul Normal 150-450 [facility] Comment on above: Performed By: #### TONI MALDONADORO #### [facility] [address] [place] [address] Dr. Gasper Garber RBC 3.85 106/ul Critically low 4.20-5.40 [facility] Comment on above: Performed By: #### TONI MALDONADORO #### [facility] [address] [place] [address] Dr. Gasper Garber WBC 8.4 103/ul Normal 4.0-11.0 [facility] Comment on above: Performed By: #### TONI MALDONADORO #### [facility] [address] [place] [address] Dr. Gasper Garber MAGNESIUMon 05-15-2022 Magnesium [Mass/Vol] 2.0 mg/dL Normal 1.8-2.4 [facility] Comment on above: Performed By: #### TONI MALDONADORO #### [facility] [address] [place] [address] Dr. Gasper Garber PROF 14(COMP METB)on 023 Albumin [Mass/Vol] 3.4 g/dL Normal 3.4-5.0 [facility] Comment on above: Performed By: #### TONI MALDONADORO #### [facility] [address] [place] [address] Dr. Gasper Garber Albumin/Globulin [Mass ratio] 1.0 {ratio} Normal [facility] Comment on above: Performed By: #### Bernice HERNDON UMICRO #### [facility] [address] [place] [address] Dr. Gasper Garber ALP [Catalytic activity/Vol] 70 U/L Normal 46-116 [facility] Comment on above: Performed By: #### Bernice HERNDON UMICRO #### [facility] [address] [place] [address] Dr. Gasper Garber ALT [Catalytic activity/Vol] 23 U/L Normal 14-59 [facility] Comment on above: Performed By: #### Bernice HERNDON UMICRO #### [facility] [address] [place] [address] Dr. Gasper Garber Anion gap [Moles/Vol] 12.2 mmol/L Normal [facility] Comment on above: Performed By: #### eBrnice HERNDON UMICRO #### [facility] [address] [place] [address] Dr. Gasper Garber AST [Catalytic activity/Vol] 13 U/L Critically low 15-37 [facility] Comment on above: Performed By: #### Bernice HERNDON UMICRO #### [facility] [address] [place] [address] Dr. Gasper Garber Bilirubin [Mass/Vol] 0.6 mg/dL Normal 0.2-1.0 [facility] Comment on above: Performed By: #### Bernice HERNDON UMICRO #### [facility] [address] [place] [address] Dr. Gasper Garber Calcium [Mass/Vol] 9.6 mg/dL Normal 8.5-10.1 [facility] Comment on above: Performed By: #### Bernice HERNDON UMICRO #### [facility] [address] [place] [address] Dr. Gasper Garber Chloride [Moles/Vol] 106 mmol/L Normal 98-107 [facility] Comment on above: Performed By: #### E YANICK UMICRO #### [facility] [address] [place] [address] Dr. Gasper Garber CO2 [Moles/Vol] 29.0 mmol/L Normal 21.0-32.0 [facility] Comment on above: Performed By: #### E YANICK UMICRO #### [facility] [address] [place] [address] Dr. Gasper Garber Creatinine [Mass/Vol] 1.46 mg/dL Critically high 0.55-1.02 [facility] Comment on above: Performed By: #### BERNIE MALDONADO #### [facility] [address] [place] [address] Dr. Gasper Garber EGFR-AF DJIBOUTIAN 42 mL/min/1.73m2 Critically low >=60 [facility] Comment on above: Performed By: #### TONI MALDONADORO #### [facility] [address] [place] [address] Dr. Gasper Garber EGFR-NON AF DJIBOUTIAN 35 mL/min/1.73m2 Critically low >=60 [facility] Comment on above: Performed By: #### TONI MALDONADORO #### [facility] [address] [place] [address] Dr. Gasper Garber Globulin (S) [Mass/Vol] 3.3 g/dL Normal [facility] Comment on above: Performed By: #### TONI MALDONADORO #### [facility] [address] [place] [address] Dr. Gasper Garber Glucose [Mass/Vol] 154 mg/dL Critically high 74-106 [facility] Comment on above: Performed By: #### TONI MALDONADORO #### [facility] [address] [place] [address] Dr. Gasper Garber Potassium [Moles/Vol] 3.2 mmol/L Critically low 3.5-5.1 [facility] Comment on above: Performed By: #### TONI MALDONADORO #### [facility] [address] [place] [address] Dr. Gasper Garber Protein [Mass/Vol] 6.7 g/dL Normal 6.4-8.2 [facility] Comment on above: Performed By: #### TONI MALDONADORO #### [facility] [address] [place] [address] Dr. Gasper Garber Sodium [Moles/Vol] 144 mmol/L Normal 136-145 [facility] Comment on above: Performed By: #### BERNIE MALDONADO #### [facility] [address] [place] [address] Dr. Gasper Garber Urea nitrogen [Mass/Vol] 28.0 mg/dL Critically high 7.0-18.0 [facility] Comment on above: Performed By: #### E TONI HERNDONRO #### [facility] [address] [place] [address] Dr. Gasper Garber Urea nitrogen/Creatinine [Mass ratio] 19.2 mg/mg Normal [facility] Comment on above: Performed By: #### E TONI HERNDONRO #### [facility] [address] [place] [address] Dr. Gasper Garber BNPon 05-14-2022 Natriuretic peptide B (Bld) [Mass/Vol] 1231.0 pg/mL Critically high <=900.0 [facility] Comment on above: Performed By: #### L ACT #### [facility] [address] [place] [address] Dr. Gasper Garber CARDIAC SEKOU ADMITon 023 CK [Catalytic activity/Vol] 30 U/L Normal 26-192 [facility] Comment on above: Performed By: #### L ACT #### [facility] [address] [place] [address] Dr. Gasper Garber CK.MB [Mass/Vol] 0.54 ng/mL Normal <=3.60 [facility] Comment on above: Performed By: #### L ACT #### [facility] [address] [place] [address] Dr. Gasper Garber HSTROP 9.8 pg/mL Normal 4.0-51.3 [facility] Comment on above: Result Comment: CUT- OFF POINTS HAVE BEEN ESTABLISHED BASED ON THE FOURTH UNIVERSAL DEFINITIONS OF MYOCARDIAL INFARCTION. THE UPPER REFERENCE LIMIT (URL) OF TROPONIN, DEFINED THE 99TH PERCENTILE OF cTnI DISTRIBUTION IN A REFERENCE POPULATION, HAS BEEN CONFIRMED THE DECISION THRESHOLD FOR [place] DIAGNOSIS. Performed By: #### L ACT #### [facility] [address] [place] [address] Dr. Gasper Garber JUSTIN 62 ng/mL Normal 9-82 [facility] Comment on above: Performed By: #### L ACT #### [facility] [address] [place] [address] Dr. Gasper Garber CBC AUTO DIFFon 05-14-2022 BASO # 0.0 103/ul Normal 0.0-0.1 [facility] Comment on above: Performed By: #### U ARMICR #### [facility] [address] [place] [address] Dr. Gasper Garber Basophils/100 WBC (Bld) 0.4 % Normal 0.2-2.0 [facility] Comment on above: Performed By: #### U ARMICR #### [facility] [address] [place] [address] Dr. Gasper Garber EO # 0.2 103/ul Normal 0.0-0.7 [facility] Comment on above: Performed By: #### U ARMICR #### [facility] [address] [place] [address] Dr. Gasper Garber Eosinophils/100 WBC (Bld) 2.4 % Normal 0.9-7.0 [facility] Comment on above: Performed By: #### U ARMICR #### [facility] [address] [place] [address] Dr. Gasper Garber Erythrocyte distribution width (RBC) [Ratio] 12.7 % Normal 11.0-15.0 [facility] Comment on above: Performed By: #### U ARMICR #### [facility] [address] [place] [address] Dr. Gasper Garber Hematocrit (Bld) [Volume fraction] 36.4 % Normal 36.0-48.0 [facility] Comment on above: Performed By: #### U ARMICR #### [facility] [address] [place] [address] Dr. Gasper Garber Hemoglobin (Bld) [Mass/Vol] 11.7 g/dL Critically low 12.0-16.0 [facility] Comment on above: Performed By: #### U ARMICR #### [facility] [address] [place] [address] Dr. Gasper Garber IG # 0.03 10e3/ul Normal 0.00-0.03 [facility] Comment on above: Performed By: #### U ARMICR #### [facility] [address] [place] [address] Dr. Gasper Garber IG % 0.3 % Normal 0.0-0.5 [facility] Comment on above: Performed By: #### U ARMICR #### [facility] [address] [place] [address] Dr. Gasper Garber LYMPH # 1.9 103/ul Normal 1.2-3.8 [facility] Comment on above: Performed By: #### U ARMICR #### [facility] [address] [place] [address] Dr. Gasper Garber Lymphocytes/100 WBC (Bld) 20.2 % Critically low 20.5-60.0 [facility] Comment on above: Performed By: #### U ARMICR #### [facility] [address] [place] [address] Dr. Gasper Garber MANUAL DIFF REQ NO Normal [facility] Comment on above: Performed By: #### U ARMICR #### [facility] [address] [place] [address] Dr. Gasper Garber MCH (RBC) [Entitic mass] 30.8 pg Normal 26.7-34.0 [facility] Comment on above: Performed By: #### U ARMICR #### [facility] [address] [place] [address] Dr. Gasper Garber MCHC (RBC) [Mass/Vol] 32.1 g/dL Normal 29.9-35.2 [facility] Comment on above: Performed By: #### U ARMICR #### [facility] [address] [place] [address] Dr. Gasper Garber MCV (RBC) [Entitic vol] 95.8 fL Normal 81.0-99.0 [facility] Comment on above: Performed By: #### U ARMICR #### [facility] [address] [place] [address] Dr. Gasper Garber MONO # 1.2 103/ul Critically high 0.3-0.8 [facility] Comment on above: Performed By: #### U ARMICR #### [facility] [address] [place] [address] Dr. Gasper Garber Monocytes/100 WBC (Bld) 13.0 % Critically high 1.7-12.0 [facility] Comment on above: Performed By: #### U ARMICR #### [facility] [address] [place] [address] Dr. Gasper Garber NEUT # 5.8 103/ul Normal 1.4-6.5 [facility] Comment on above: Performed By: #### U ARMICR #### [facility] [address] [place] [address] Dr. Gasper Garber Neutrophils/100 WBC (Bld) 63.7 % Normal 43.0-75.0 [facility] Comment on above: Performed By: #### U ARMICR #### [facility] [address] [place] [address] Dr. Gasper Garber Platelet mean volume (Bld) [Entitic vol] 10.0 fL Normal 9.5-13.5 [facility] Comment on above: Performed By: #### U ARMICR #### [facility] [address] [place] [address] Dr. Gasper Garber PLT 251 103/ul Normal 150-450 [facility] Comment on above: Performed By: #### U ARMICR #### [facility] [address] [place] [address] Dr. Gasper Garber RBC 3.80 106/ul Critically low 4.20-5.40 [facility] Comment on above: Performed By: #### U ARMICR #### [facility] [address] [place] [address] Dr. Gasper Garber WBC 9.2 103/ul Normal 4.0-11.0 [facility] Comment on above: Performed By: #### U ARMICR #### [facility] [address] [place] [address] Dr. Gasper Garber BASO # 0.0 103/ul Normal 0.0-0.1 [facility] Comment on above: Performed By: #### U ARMICR #### [facility] [address] [place] [address] Dr. Gasper Garber Basophils/100 WBC (Bld) 0.0 % Critically low 0.2-2.0 [facility] Comment on above: Performed By: #### U ARMICR #### [facility] [address] [place] [address] Dr. Gasper Garber EO # 0.0 103/ul Normal 0.0-0.7 [facility] Comment on above: Performed By: #### U ARMICR #### [facility] [address] [place] [address] Dr. Gasper Garber Eosinophils/100 WBC (Bld) 0.0 % Critically low 0.9-7.0 [facility] Comment on above: Performed By: #### U ARMICR #### [facility] [address] [place] [address] Dr. Gasper Garber Erythrocyte distribution width (RBC) [Ratio] 12.1 % Normal 11.0-15.0 [facility] Comment on above: Performed By: #### U ARMICR #### [facility] [address] [place] [address] Dr. Gasper Garber Hematocrit (Bld) [Volume fraction] 37.9 % Normal 36.0-48.0 [facility] Comment on above: Performed By: #### U ARMICR #### [facility] [address] [place] [address] Dr. Gasper Garber Hemoglobin (Bld) [Mass/Vol] 12.2 g/dL Normal 12.0-16.0 [facility] Comment on above: Performed By: #### U ARMICR #### [facility] [address] [place] [address] Dr. Gasper Garber IG # 0.00 10e3/ul Normal 0.00-0.03 [facility] Comment on above: Performed By: #### U ARMICR #### [facility] [address] [address] [address] Gasper Garber IG % 0.0 % Normal 0.0-0.5 [facility] Comment on above: Performed By: #### U ARMICR #### [facility] [address] [address] [address] Gasper Garber LYMPH # 1.3 103/ul Normal 1.2-3.8 [facility] Comment on above: Performed By: #### U ARMICR #### [facility] [address] [address] [address] Gasper Garber Lymphocytes/100 WBC (Bld) 18.6 % Critically low 20.5-60.0 [facility] Comment on above: Performed By: #### U ARMICR #### [facility] [address] [address] [address] Gasper Garber MANUAL DIFF REQ NO Normal [facility] Comment on above: Performed By: #### U ARMICR #### [facility] [address] [address] [address] Gasper Garber MCH (RBC) [Entitic mass] 30.7 pg Normal 26.7-34.0 [facility] Comment on above: Performed By: #### U ARMICR #### [facility] [address] [address] [address] Gasper Garber MCHC (RBC) [Mass/Vol] 32.2 g/dL Normal 29.9-35.2 [facility] Comment on above: Performed By: #### U ARMICR #### [facility] [address] [address] [address] Gasper Garber MCV (RBC) [Entitic vol] 95.5 fL Normal 81.0-99.0 [facility] Comment on above: Performed By: #### U ARMICR #### [facility] [address] [address] [address] Gasper Garber MONO # 0.8 103/ul Normal 0.3-0.8 [facility] Comment on above: Performed By: #### U ARMICR #### [facility] [address] [address] [address] Gasper Garber Monocytes/100 WBC (Bld) 11.6 % Normal 1.7-12.0 [facility] Comment on above: Performed By: #### U ARMICR #### [facility] [address] [address] [address] Gasper Garber NEUT # 5.0 103/ul Normal 1.4-6.5 [facility] Comment on above: Performed By: #### U ARMICR #### [facility] [address] [address] [address] Gasper Garber Neutrophils/100 WBC (Bld) 69.8 % Normal 43.0-75.0 [facility] Comment on above: Performed By: #### U ARMICR #### [facility] [address] [place] [address] Dr. Gasper Garber Platelet mean volume (Bld) [Entitic vol] 9.8 fL Normal 9.5-13.5 [facility] Comment on above: Performed By: #### U ARMICR #### [facility] [address] [address] [address] Gasper Garber PLT 258 103/ul Normal 150-450 [facility] Comment on above: Performed By: #### U ARMICR #### [facility] [address] [address] [address] Gasper Garber RBC 3.97 106/ul Critically low 4.20-5.40 [facility] Comment on above: Performed By: #### U ARMICR #### [facility] [address] [address] [address] Gasper Garber WBC 7.1 103/ul Normal 4.0-11.0 [facility] Comment on above: Performed By: #### U ARMICR #### [facility] [address] [place] [address] HEAD WO CONon [...] Mild cervical spondylosis. Electronically authenticated by: [facility] Date: 2022-05-14 00:20 Normal [facility] Covid-19 PCR (CVDTB)on 04-20 SARS-CoV-2 (COVID-19) RNA ANA LUISA+probe Ql (Unsp spec) Not detected Normal NOT DETECTED [facility] Comment on above: Result Comment: When [...] for this test is supported by the [place] of Health and Human Service's declaration that [...] used). Performed By: #### L ACT #### [facility] [address] [place] [address] Dr. Gasper Garber ER URINE PROFILEon 3 Bilirubin Ql (U) Negative Normal NEGATIVE [facility] Comment on above: Performed By: #### A CETON #### [facility] [address] [place] [address] Dr. Gasper Garber Clarity (U) CLEAR Normal CLEAR [facility] Comment on above: Performed By: #### A CETON #### [facility] [address] [place] [address] Dr. Gasper Garber Color (U) LT. YELLOW Normal YELLOW [facility] Comment on above: Performed By: #### A CETON #### [facility] [address] [place] [address] Dr. Gasper Garber ERUAHD A micrscopic examina tion will be performed if indicated. Normal [facility] Comment on above: Performed By: #### A CETON #### [facility] [address] [place] [address] Dr. Gasper Garber Glucose Ql (U) Negative Normal NEGATIVE [facility] Comment on above: Performed By: #### A CETON #### [facility] [address] [place] [address] Dr. Gasper Garber Hemoglobin Ql (U) Negative Normal NEGATIVE [facility] Comment on above: Performed By: #### A CETON #### [facility] [address] [place] [address] Dr. Gasper Garber Ketones Ql (U) Negative Normal NEGATIVE [facility] Comment on above: Performed By: #### A CETON #### [facility] [address] [place] [address] Dr. Gasper Garber LEUKOCYTES Negative Normal NEGATIVE [facility] Comment on above: Performed By: #### A CETON #### [facility] [address] [place] [address] Dr. Gasper Garber Nitrite Ql (U) Positive Abnormal NEGATIVE [facility] Comment on above: Performed By: #### A CETON #### [facility] [address] [place] [address] Dr. Gasper Garber pH (U) 7.0 [pH] Normal 5-9 [facility] Comment on above: Performed By: #### A CETON #### [facility] [address] [place] [address] Dr. Gasper Garber SPEC GRAVITY <=1.005 Abnormal 1.005-<=1.0 25 [facility] Comment on above: Performed By: #### A CETON #### [facility] [address] [place] [address] Dr. Gasper Garber UA PROTEIN Negative Normal NEGATIVE/ TRACE [facility] Comment on above: Performed By: #### A CETON #### [facility] [address] [place] [address] Dr. Gasper Garber UR MICRO IND INDICATED Normal [facility] Comment on above: Performed By: #### A CETON #### [facility] [address] [place] [address] Dr. Gasper Garber Urobilinogen Qn (U) 0.2 {Kaushik'U}/dL Normal 0.2 - 1. 0 [facility] Comment on above: Performed By: #### A CETON #### [facility] [address] [place] [address] Dr. Gasper Garber MAGNESIUMon 05-14-2022 Magnesium [Mass/Vol] 2.4 mg/dL Normal 1.8-2.4 [facility] Comment on above: Performed By: #### Bernice HERNDON UMICRO #### [facility] [address] [place] [address] Dr. Gasper Garber PROF 14(COMP METB)on 023 Albumin [Mass/Vol] 3.5 g/dL Normal 3.4-5.0 [facility] Comment on above: Performed By: #### Bernice HERNDON UMICRO #### [facility] [address] [place] [address] Dr. Gasper Garber Albumin/Globulin [Mass ratio] 1.0 {ratio} Normal [facility] Comment on above: Performed By: #### Bernice HERNDON UMICRO #### [facility] [address] [place] [address] Dr. Gasper Garber ALP [Catalytic activity/Vol] 82 U/L Normal 46-116 [facility] Comment on above: Performed By: #### Bernice HERNDON UMICRO #### [facility] [address] [place] [address] Dr. Gasper Garber ALT [Catalytic activity/Vol] 22 U/L Normal 14-59 [facility] Comment on above: Performed By: #### Bernice HERNDON, UMICRO #### [facility] [address] [place] [address] Dr. Gasper Garber Anion gap [Moles/Vol] 11.1 mmol/L Normal [facility] Comment on above: Performed By: #### Bernice HERNDON, UMICRO #### [facility] [address] [place] [address] Dr. Gasper Garber AST [Catalytic activity/Vol] 14 U/L Critically low 15-37 [facility] Comment on above: Performed By: #### Bernice HERNDON, UMICRO #### [facility] [address] [place] [address] Dr. Gasper Garber Bilirubin [Mass/Vol] 0.5 mg/dL Normal 0.2-1.0 [facility] Comment on above: Performed By: #### BERNIE MALDONADO #### [facility] [address] [place] [address] Dr. Gasper Garber Calcium [Mass/Vol] 9.8 mg/dL Normal 8.5-10.1 [facility] Comment on above: Performed By: #### TONI MALDONADORO #### [facility] [address] [place] [address] Dr. Gasper Garber Chloride [Moles/Vol] 99 mmol/L Normal 98-107 [facility] Comment on above: Performed By: #### TONI MALDONADORO #### [facility] [address] [place] [address] Dr. Gasper Garber CO2 [Moles/Vol] 30.5 mmol/L Normal 21.0-32.0 [facility] Comment on above: Performed By: #### TONI MALDONADORO #### [facility] [address] [place] [address] Dr. Gasper Garber Creatinine [Mass/Vol] 1.75 mg/dL Critically high 0.55-1.02 [facility] Comment on above: Performed By: #### TONI MALDONADORO #### [facility] [address] [place] [address] Dr. Gasper Garber EGFR-AF DJIBOUTIAN 34 mL/min/1.73m2 Critically low >=60 [facility] Comment on above: Performed By: #### TONI MALDONADORO #### [facility] [address] [place] [address] Dr. Gasper Garber EGFR-NON AF DJIBOUTIAN 28 mL/min/1.73m2 Critically low >=60 [facility] Comment on above: Performed By: #### TONI MALDONADORO #### [facility] [address] [place] [address] Dr. Gasper Garber Globulin (S) [Mass/Vol] 3.4 g/dL Normal [facility] Comment on above: Performed By: #### TONI MALDONADORO #### [facility] [address] [address] [address] Gasper Garber Glucose [Mass/Vol] 154 mg/dL Critically high 74-106 [facility] Comment on above: Performed By: #### E MINR, UMICRO #### [facility] [address] [address] [address] Gasper Garber Potassium [Moles/Vol] 3.6 mmol/L Normal 3.5-5.1 [facility] Comment on above: Performed By: #### E MINR, UMICRO #### [facility] [address] [address] [address] Gasper Garber Protein [Mass/Vol] 6.9 g/dL Normal 6.4-8.2 [facility] Comment on above: Performed By: #### E YANICK, UMICRO #### [facility] [address] [place] [address] Dr. Gasper Garber Sodium [Moles/Vol] 137 mmol/L Normal 136-145 [facility] Comment on above: Performed By: #### E YANICK, UMICRO #### [facility] [address] [address] [address] Gasper Garber Urea nitrogen [Mass/Vol] 35.0 mg/dL Critically high 7.0-18.0 [facility] Comment on above: Performed By: #### E YANICK, UMICRO #### [facility] [address] [address] [address] Gasper Garber Urea nitrogen/Creatinine [Mass ratio] 20.0 mg/mg Normal [facility] Comment on above: Performed By: #### E YANICK, UMICRO #### [facility] [address] [address] [address] Gasper Garber Albumin [Mass/Vol] 3.7 g/dL Normal 3.4-5.0 [facility] Comment on above: Performed By: #### L ACT #### [facility] [address] [address] [address] Gasper Garber Albumin/Globulin [Mass ratio] 1.1 {ratio} Normal [facility] Comment on above: Performed By: #### L ACT #### [facility] [address] [address] [address] Gasper Garber ALP [Catalytic activity/Vol] 84 U/L Normal 46-116 [facility] Comment on above: Performed By: #### L ACT #### [facility] [address] [address] [address] Gasper Garber ALT [Catalytic activity/Vol] 26 U/L Normal 14-59 [facility] Comment on above: Performed By: #### L ACT #### [facility] [address] [place] [address] Dr. Gasper Garber Anion gap [Moles/Vol] 8.5 mmol/L Normal [facility] Comment on above: Performed By: #### L ACT #### [facility] [address] [place] [address] Dr. Gasper Garber AST [Catalytic activity/Vol] 16 U/L Normal 15-37 [facility] Comment on above: Performed By: #### L ACT #### [facility] [address] [place] [address] Dr. Gasper Garber Bilirubin [Mass/Vol] 0.4 mg/dL Normal 0.2-1.0 [facility] Comment on above: Performed By: #### L ACT #### [facility] [address] [place] [address] Dr. Gasper Garber Calcium [Mass/Vol] 9.8 mg/dL Normal 8.5-10.1 [facility] Comment on above: Performed By: #### L ACT #### [facility] [address] [address] [address] Gasper Garber Chloride [Moles/Vol] 99 mmol/L Normal 98-107 [facility] Comment on above: Performed By: #### L ACT #### [facility] [address] [place] [address] Dr. Gasper Garber CO2 [Moles/Vol] 32.3 mmol/L Critically high 21.0-32.0 [facility] Comment on above: Performed By: #### L ACT #### [facility] [address] [address] [address] Gasper Garber Creatinine [Mass/Vol] 1.84 mg/dL Critically high 0.55-1.02 [facility] Comment on above: Performed By: #### L ACT #### [facility] [address] [address] [address] Gasper Garber EGFR-AF DJIBOUTIAN 33 mL/min/1.73m2 Critically low >=60 [facility] Comment on above: Performed By: #### L ACT #### [facility] [address] [address] [address] Gasper Garber EGFR-NON AF DJIBOUTIAN 27 mL/min/1.73m2 Critically low >=60 [facility] Comment on above: Performed By: #### L ACT #### [facility] [address] [address] [address] Gasper Garber Globulin (S) [Mass/Vol] 3.4 g/dL Normal [facility] Comment on above: Performed By: #### L ACT #### [facility] [address] [address] [address] Gasper Garber Glucose [Mass/Vol] 180 mg/dL Critically high 74-106 [facility] Comment on above: Performed By: #### L ACT #### [facility] [address] [address] [address] Gasper Garber Potassium [Moles/Vol] 3.8 mmol/L Normal 3.5-5.1 [facility] Comment on above: Performed By: #### L ACT #### [facility] [address] [address] [address] Gasper Garber Protein [Mass/Vol] 7.1 g/dL Normal 6.4-8.2 [facility] Comment on above: Performed By: #### L ACT #### [facility] [address] [address] [address] Gasper Garber Sodium [Moles/Vol] 136 mmol/L Normal 136-145 [facility] Comment on above: Performed By: #### L ACT #### [facility] [address] [place] [address] Dr. Gasper Garber Urea nitrogen [Mass/Vol] 35.0 mg/dL Critically high 7.0-18.0 [facility] Comment on above: Performed By: #### L ACT #### [facility] [address] [place] [address] Dr. Gasper Garber Urea nitrogen/Creatinine [Mass ratio] 19.0 mg/mg Normal [facility] Comment on above: Performed By: #### L ACT #### [facility] [address] [place] [address] Dr. Gasper Garber PROTIMEon 05-14-2022 INR Coag (PPP) [Relative time] 0.95 {INR} Normal [facility] Comment on above: Performed By: #### U RCX #### [facility] [address] [place] [address] Dr. Gasper Garber INR GUIDELINES SEE BELOW Normal [facility] Comment on above: Result Comment: JESUS RED INR: 2.0 - 3.0 CONDITIONS NOT LISTED BELOW 2.5 - 3.5 FOR PROSTHETIC HEART VALVE REPLACEMENT 2.5 - 3.5 RECURRENT THROMBOSIS Performed By: #### U RCX #### [facility] [address] [place] [address] Dr. Gasper Garber PT Coag (PPP) [Time] 10.1 s Normal 9.0-11.6 [facility] Comment on above: Performed By: #### U RCX #### [facility] [address] [place] [address] Dr. Gasper Garber PTTon 05-14-2022 aPTT Coag (Bld) [Time] 24.7 s Normal 22.3-36.2 [facility] Comment on above: Performed By: #### E BERNIE HERNDON #### [facility] [address] [place] [address] Dr. Gasper Garber URINE MICROSCOPIC ONLYon BACTERIA LARGE Abnormal NONE SEEN The [facility] Comment on above: Performed By: #### U ARMICR #### [facility] [address] [place] [address] Dr. Gasper Garber Bacteria identified Cx Nom (U) INDICATED Normal [facility] Comment on above: Performed By: #### U ARMICR #### [facility] [address] [place] [address] Dr. Gasper Garber CAST NONE SEEN Normal NONE SEEN [facility] Comment on above: Performed By: #### U ARMICR #### [facility] [address] [place] [address] Dr. Gasper Garber Crystals LM Nom (Urine sed) NONE SEEN Normal NONE SEEN [facility] Comment on above: Performed By: #### U ARMICR #### [facility] [address] [place] [address] Dr. Gasper Garber Epithelial cells LM Ql (Urine sed) MANY Abnormal NONE SEEN /RARE [facility] Comment on above: Performed By: #### U ARMICR #### [facility] [address] [place] [address] Dr. Gasper Garber MUCOUS NONE SEEN Normal NONE SEEN [facility] Comment on above: Performed By: #### U ARMICR #### [facility] [address] [place] [address] Dr. Gasper Garber RBC 0-2 Normal 0-2 [facility] Comment on above: Performed By: #### U ARMICR #### [facility] [address] [place] [address] Dr. Gasper Garber WBC 0-2 Abnormal NONE SEEN [facility] Comment on above: Performed By: #### U ARMICR #### [facility] [address] [place] [address] Dr. Gasper Garber XR CHEST 1 Von [...] by: SAI ORTA Date: 2022-05-14 00:19 Normal [facility] XR LSPINE 2_3 VIEWSon 2022 XR [...] by: CHRYSTAL LAUREANO Date: 2022-05-05 15:30 Normal [facility] GLYCOHEMOGLOBIN A1Con 2021 ADA RECOMMENDATION SEE BELOW Normal [facility] Comment on above: Result Comment: ADA RECOMMENDED LIMIT 4.0 - 6.0 ADA THERAPEUTIC TARGET < 7.0 ACTION SUGGESTED > 7.0 Performed By: #### BERNIE MALDONADO #### [facility] [address] [address] [address] Gasper Garber Glucose [Mass/Vol] 169 mg/dL Normal [facility] Comment on above: Performed By: #### BERNIE MALDONADO #### [facility] [address] [address] [address] Gasper Garber HbA1c (Bld) [Mass fraction] 7.5 % Critically high 4.5-6.2 [facility] Comment on above: Performed By: #### BERNIE MALDONADO #### [facility] [address] [address] [address] Gasper Garber NM GASTRIC EMPTYon 2 [...] NASRIN CHIU Date: 2021-09-09 13:23 Normal [facility] ACETONE SERUMon 08-31-2021 ACETONE Negative Normal NEGATIVE [facility] Comment on above: Performed By: #### A CETON #### [facility] [address] [address] [address] Gasper Garber CBC AUTO DIFFon 08-31-2021 BASO # 0.0 103/ul Normal 0.0-0.1 [facility] Comment on above: Performed By: #### U ARMICR #### [facility] [address] [address] [address] Gasper Garber Basophils/100 WBC (Bld) 0.5 % Normal 0.2-2.0 [facility] Comment on above: Performed By: #### U ARMICR #### [facility] [address] [address] [address] Gasper Garber EO # 0.2 103/ul Normal 0.0-0.7 [facility] Comment on above: Performed By: #### U ARMICR #### [facility] [address] [address] [address] Gasper Garber Eosinophils/100 WBC (Bld) 1.9 % Normal 0.9-7.0 [facility] Comment on above: Performed By: #### U ARMICR #### [facility] [address] [address] [address] Gasper Garber Erythrocyte distribution width (RBC) [Ratio] 12.8 % Normal 11.0-15.0 [facility] Comment on above: Performed By: #### U ARMICR #### [facility] [address] [address] [address] Gasper Garber Hematocrit (Bld) [Volume fraction] 36.2 % Normal 36.0-48.0 [facility] Comment on above: Performed By: #### U ARMICR #### [facility] [address] [address] [address] Gasper Garber Hemoglobin (Bld) [Mass/Vol] 11.4 g/dL Critically low 12.0-16.0 [facility] Comment on above: Performed By: #### U ARMICR #### [facility] [address] [place] [address] Dr. Gasper Garber IG # 0.03 10e3/ul Normal 0.00-0.03 [facility] Comment on above: Performed By: #### U ARMICR #### [facility] [address] [place] [address] Dr. Gasper Garber IG % 0.4 % Normal 0.0-0.5 [facility] Comment on above: Performed By: #### U ARMICR #### [facility] [address] [place] [address] Dr. Gasper Garber LYMPH # 1.3 103/ul Normal 1.2-3.8 [facility] Comment on above: Performed By: #### U ARMICR #### [facility] [address] [place] [address] Dr. Gasper Garber Lymphocytes/100 WBC (Bld) 15.2 % Critically low 20.5-60.0 [facility] Comment on above: Performed By: #### U ARMICR #### [facility] [address] [place] [address] Dr. Gasper Garber MANUAL DIFF REQ NO Normal [facility] Comment on above: Performed By: #### U ARMICR #### [facility] [address] [place] [address] Dr. Gasper Garber MCH (RBC) [Entitic mass] 30.6 pg Normal 26.7-34.0 [facility] Comment on above: Performed By: #### U ARMICR #### [facility] [address] [place] [address] Dr. Gasper Garber MCHC (RBC) [Mass/Vol] 31.5 g/dL Normal 29.9-35.2 [facility] Comment on above: Performed By: #### U ARMICR #### [facility] [address] [place] [address] Dr. Gasper Garber MCV (RBC) [Entitic vol] 97.1 fL Normal 81.0-99.0 [facility] Comment on above: Performed By: #### U ARMICR #### [facility] [address] [place] [address] Dr. Gasper Garber MONO # 0.8 103/ul Normal 0.3-0.8 [facility] Comment on above: Performed By: #### U ARMICR #### [facility] [address] [place] [address] Dr. Gasper Garber Monocytes/100 WBC (Bld) 9.8 % Normal 1.7-12.0 [facility] Comment on above: Performed By: #### U ARMICR #### [facility] [address] [place] [address] Dr. Gasper Garber NEUT # 6.1 103/ul Normal 1.4-6.5 [facility] Comment on above: Performed By: #### U ARMICR #### [facility] [address] [place] [address] Dr. Gasper Garber Neutrophils/100 WBC (Bld) 72.2 % Normal 43.0-75.0 [facility] Comment on above: Performed By: #### U ARMICR #### [facility] [address] [place] [address] Dr. Gasper Garber Platelet mean volume (Bld) [Entitic vol] 10.2 fL Normal 9.5-13.5 [facility] Comment on above: Performed By: #### U ARMICR #### [facility] [address] [place] [address] Dr. Gasper Garber PLT 249 103/ul Normal 150-450 [facility] Comment on above: Performed By: #### U ARMICR #### [facility] [address] [place] [address] Dr. Gasper Garber RBC 3.73 106/ul Critically low 4.20-5.40 [facility] Comment on above: Performed By: #### U ARMICR #### [facility] [address] [place] [address] Dr. Gasper Garber WBC 8.4 103/ul Normal 4.0-11.0 [facility] Comment on above: Performed By: #### U ARMICR #### [facility] [address] [place] [address] Dr. Gasper Garber CULTURE URINEon 08-31-2021 CULTURE URINE Culture Observations : HEAVY GROWTH OF MIXED GENITAL KADEEM. NO POTENTIAL PATHOGENS SEEN. Normal [facility] Comment on above: Performed By: #### A CETON #### [facility] [address] [place] [address] Dr. Gasper Garber ER URINE PROFILEon Bilirubin Ql (U) SMALL Abnormal NEGATIVE The [facility] Comment on above: Performed By: #### E RUR UMICRO #### [facility] [address] [place] [address] Dr. Gasper Garber Clarity (U) CLOUDY Abnormal CLEAR [facility] Comment on above: Performed By: #### E RUR UMICRO #### [facility] [address] [place] [address] Dr. Gasper Garber Color (U) YELLOW Normal YELLOW [facility] Comment on above: Performed By: #### E RUCrystal UMICRO #### [facility] [address] [place] [address] Dr. Gasper Garber ERUNIKI A micrscopic examina tion will be performed if indicated. Normal [facility] Comment on above: Performed By: #### E RUR UMICRO #### [facility] [address] [place] [address] Dr. Gasper Garber Glucose Ql (U) Negative Normal NEGATIVE The [facility] Comment on above: Performed By: #### E RUR UMICRO #### [facility] [address] [place] [address] Dr. Gasper Garber Hemoglobin Ql (U) Negative Normal NEGATIVE The [facility] Comment on above: Performed By: #### E RUR UMICRO #### [facility] [address] [place] [address] Dr. Gasper Garber Ketones Ql (U) Negative Normal NEGATIVE The [facility] Comment on above: Performed By: #### Bernice HERNDON UMICRO #### [facility] [address] [place] [address] Dr. Gasper Garber LEUKOCYTES TRACE Abnormal NEGATIVE [facility] Comment on above: Performed By: #### Bernice HERNDON UMICRO #### [facility] [address] [place] [address] Dr. Gasper Garber Nitrite Ql (U) Negative Normal NEGATIVE [facility] Comment on above: Performed By: #### Bernice HERNDON UMICRO #### [facility] [address] [place] [address] Dr. Gasper Garber pH (U) 5.5 [pH] Normal 5-9 [facility] Comment on above: Performed By: #### Bernice HERNDON UMICRO #### [facility] [address] [place] [address] Dr. Gasper Garber Protein (U) [Mass/Vol] 100 mg/dL Abnormal NEGATIVE/ TRACE [facility] Comment on above: Performed By: #### Bernice HERNDON UMICRO #### [facility] [address] [place] [address] Dr. Gasper Garber SPEC GRAVITY >=1.030 Abnormal 1.005-<=1.0 25 [facility] Comment on above: Performed By: #### Bernice HERNDON UMICRO #### [facility] [address] [place] [address] Dr. Gasper Garber UR MICRO IND INDICATED Normal [facility] Comment on above: Performed By: #### Bernice HERNDON UMICRO #### [facility] [address] [place] [address] Dr. Gasper Garber Urobilinogen Qn (U) 1.0 {Kaushik'U}/dL Normal 0.2 - 1. 0 [facility] Comment on above: Performed By: #### Bernice HERNDON UMICRO #### [facility] [address] [place] [address] Dr. Gasper Garber GI PANEL (PCR)on 08-31-2021 Adenovirus F 40/41 Not detected Normal NOT DETECTED [facility] Comment on above: Performed By: #### E YANICK UMICRO #### [facility] [address] [place] [address] Dr. Gasper Garber Astrovirus Not detected Normal NOT DETECTED [facility] Comment on above: Performed By: #### E YANICK, UMICRO #### [facility] [address] [place] [address] Dr. Gasper Garber C. Diff toxin A/B Not detected Normal NOT DETECTED [facility] Comment on above: Performed By: #### E YANICK, UMICRO #### [facility] [address] [place] [address] Dr. Gasper Garber Campylobacter Not detected Normal NOT DETECTED [facility] Comment on above: Performed By: #### E YANICK UMICRO #### [facility] [address] [place] [address] Dr. Gasper Garber Cryptosporidium Not detected Normal NOT DETECTED [facility] Comment on above: Performed By: #### Bernice HERNDON ICRO #### [facility] [address] [place] [address] Dr. Gasper Garber Cyclos. Cayetanensis Not detected Normal NOT DETECTED [facility] Comment on above: Performed By: #### Bernice HERNDON ICRO #### [facility] [address] [place] [address] Dr. Gasper Garber E. Coli O157 Not Applicable Normal Not Applicable [facility] Comment on above: Performed By: #### Bernice HERNDON ICRO #### [facility] [address] [place] [address] Dr. Gasper Garber E. histolytica Not detected Normal NOT DETECTED [facility] Comment on above: Performed By: #### Bernice HERNDON UMICRO #### [facility] [address] [place] [address] Dr. Gasper Garber EAEC Not detected Normal NOT DETECTED [facility] Comment on above: Performed By: #### Bernice HERNDON UMICRO #### [facility] [address] [place] [address] Dr. Gasper Garber EIEC Not detected Normal NOT DETECTED [facility] Comment on above: Performed By: #### E YANICK, UMICRO #### [facility] [address] [place] [address] Dr. Gasper Garber EPEC Not detected Normal NOT DETECTED [facility] Comment on above: Performed By: #### E YANICK, UMICRO #### [facility] [address] [place] [address] Dr. Gasper Garber ETEC Not detected Normal NOT DETECTED [facility] Comment on above: Performed By: #### E YANICK, UMICRO #### [facility] [address] [place] [address] Dr. Gasper Carmona Not detected Normal NOT DETECTED [facility] Comment on above: Performed By: #### E YANICK, UMICRO #### [facility] [address] [place] [address] Dr. Gasper LOPEZ CONTROLS PASSED Normal [facility] Comment on above: Performed By: #### E YANICK UMICRO #### [facility] [address] [place] [address] Dr. Gasper [facility] HEADER GI PANEL BACTERIA Normal [facility] Comment on above: Performed By: #### Bernice HERNDON UMICRO #### [facility] [address] [place] [address] Dr. Gasper NUNEZ ECOLI GI PANEL DIARRHEAGEN IC E.COLI / SHIGELLA Normal [facility] Comment on above: Performed By: #### Bernice HERNDON UMICRO #### [facility] [address] [place] [address] Dr. Gasper NUNEZ INFO SEE BELOW Normal [facility] Comment on above: Result Comment: EAEC - Enteroaggregative E. Coli EPEC- Enteropathogenic E. Coli ETEC- Enterotoxigenic E. Coli lt/st STEC- Shigella-like toxin-producing E. Coli stx1/stx2 EIEC- Shigella/Enteroinvasive E. Coli Performed By: #### Bernice HERNDON UMICRO #### [facility] [address] [place] [address] Dr. Gasper NUNEZ PARASITES GI PANEL PARASITES Normal [facility] Comment on above: Performed By: #### E RUR, UMICRO #### [facility] [address] [place] [address] Dr. Gasper NUNEZ VIRUS GI PANEL VIRUSES Normal The [facility] Comment on above: Performed By: #### E RUR, UMICRO #### [facility] [address] [place] [address] Dr. Gasper Garber Norovirus GI/GII Detected Abnormal NOT DETECTED [facility] Comment on above: Performed By: #### E RUR, UMICRO #### [facility] [address] [place] [address] Dr. Gasper Garber P. Shigelloides Not detected Normal NOT DETECTED [facility] Comment on above: Performed By: #### E RUCrystal, UMICRO #### [facility] [address] [place] [address] Dr. Gasper Garber Rotavirus A Not detected Normal NOT DETECTED [facility] Comment on above: Performed By: #### E YANICK, UMICRO #### [facility] [address] [place] [address] Dr. Gasper Garber Salmonella Not detected Normal NOT DETECTED [facility] Comment on above: Performed By: #### E YANICK, UMICRO #### [facility] [address] [place] [address] Dr. Gasper Garber Sapovirus Not detected Normal NOT DETECTED [facility] Comment on above: Performed By: #### E RUR, UMICRO #### [facility] [address] [place] [address] Dr. Gasper Garber STEC Not detected Normal NOT DETECTED [facility] Comment on above: Performed By: #### E RUR, UMICRO #### [facility] [address] [place] [address] Dr. Gasper Garber Vibrio Not detected Normal NOT DETECTED [facility] Comment on above: Performed By: #### E RUR, UMICRO #### [facility] [address] [place] [address] Dr. Gasper Garber Vibrio Cholera Not detected Normal NOT DETECTED [facility] Comment on above: Performed By: #### TONI MALDONADORO #### [facility] [address] [place] [address] Dr. Gasper Garber Y. Enterocolitica Not detected Normal NOT DETECTED [facility] Comment on above: Performed By: #### TONI MALDONADORO #### [facility] [address] [place] [address] Dr. Gasper Garber LACTATE/LACTIC ACIDon 2021 Lactate [Moles/Vol] 1.0 mmol/L Normal 0.4-1.9 [facility] Comment on above: Performed By: #### P T, PTT #### [facility] [address] [place] [address] Dr. Gasper Garber LIPASEon 08-31-2021 Lipase [Catalytic activity/Vol] 166.0 U/L Normal 73.0-393.0 [facility] Comment on above: Performed By: #### U ARMICR #### [facility] [address] [place] [address] Dr. Gasper Garber PROF 14(COMP METB)on 022 Albumin [Mass/Vol] 3.7 g/dL Normal 3.4-5.0 [facility] Comment on above: Performed By: #### U ARMICR #### [facility] [address] [place] [address] Dr. Gasper Garber Albumin/Globulin [Mass ratio] 1.0 {ratio} Normal [facility] Comment on above: Performed By: #### U ARMICR #### [facility] [address] [place] [address] Dr. Gasper Garber ALP [Catalytic activity/Vol] 75 U/L Normal 46-116 [facility] Comment on above: Performed By: #### U ARMICR #### [facility] [address] [place] [address] Dr. Gasper Garber ALT [Catalytic activity/Vol] 44 U/L Normal 14-59 [facility] Comment on above: Performed By: #### U ARMICR #### [facility] [address] [address] [address] Gasper Garber Anion gap [Moles/Vol] 15.3 mmol/L Normal [facility] Comment on above: Performed By: #### U ARMICR #### [facility] [address] [address] [address] Gasper Garber AST [Catalytic activity/Vol] 27 U/L Normal 15-37 [facility] Comment on above: Performed By: #### U ARMICR #### [facility] [address] [address] [address] Gasper Garber Bilirubin [Mass/Vol] 0.5 mg/dL Normal 0.2-1.0 [facility] Comment on above: Performed By: #### U ARMICR #### [facility] [address] [address] [address] Gasper Garber Calcium [Mass/Vol] 9.7 mg/dL Normal 8.5-10.1 [facility] Comment on above: Performed By: #### U ARMICR #### [facility] [address] [address] [address] Gasper Garber Chloride [Moles/Vol] 105 mmol/L Normal 98-107 [facility] Comment on above: Performed By: #### U ARMICR #### [facility] [address] [address] [address] Gasper Garber CO2 [Moles/Vol] 24.0 mmol/L Normal 21.0-32.0 [facility] Comment on above: Performed By: #### U ARMICR #### [facility] [address] [address] [address] Gasper Garber Creatinine [Mass/Vol] 2.20 mg/dL Critically high 0.55-1.02 [facility] Comment on above: Performed By: #### U ARMICR #### [facility] [address] [address] [address] Gasper Garber EGFR-AF DJIBOUTIAN 26 mL/min/1.73m2 Critically low >=60 [facility] Comment on above: Performed By: #### U ARMICR #### [facility] [address] [address] [address] Gasper Garber EGFR-NON AF DJIBOUTIAN 22 mL/min/1.73m2 Critically low >=60 [facility] Comment on above: Performed By: #### U ARMICR #### [facility] [address] [address] [address] Gasper Garber Globulin (S) [Mass/Vol] 3.7 g/dL Normal [facility] Comment on above: Performed By: #### U ARMICR #### [facility] [address] [address] [address] Gasper Garber Glucose [Mass/Vol] 280 mg/dL Critically high 74-106 [facility] Comment on above: Performed By: #### U ARMICR #### [facility] [address] [address] [address] Gasper Garber Potassium [Moles/Vol] 4.3 mmol/L Normal 3.5-5.1 [facility] Comment on above: Performed By: #### U ARMICR #### [facility] [address] [address] [address] Gasper Garber Protein [Mass/Vol] 7.4 g/dL Normal 6.4-8.2 [facility] Comment on above: Performed By: #### U ARMICR #### [facility] [address] [address] [address] Gasper Garber Sodium [Moles/Vol] 140 mmol/L Normal 136-145 [facility] Comment on above: Performed By: #### U ARMICR #### [facility] [address] [address] [address] Gasper Garber Urea nitrogen [Mass/Vol] 29.0 mg/dL Critically high 7.0-18.0 [facility] Comment on above: Performed By: #### U ARMICR #### [facility] [address] [address] [address] Gasper Garber Urea nitrogen/Creatinine [Mass ratio] 13.2 mg/mg Normal [facility] Comment on above: Performed By: #### U ARMICR #### [facility] [address] [place] [address] Dr. Gasper Garber TSHon 08-31-2021 TSH 0.923 uIU/mL Normal 0.358-3.740 [facility] Comment on above: Performed By: #### U ARMICR #### [facility] [address] [place] [address] Dr. Gasper Garber URINE MICROSCOPIC ONLYon BACTERIA SMALL Abnormal NONE SEEN [facility] Comment on above: Performed By: #### E RUR, UMICRO #### [facility] [address] [place] [address] Dr. Gasper Garber Bacteria identified Cx Nom (U) INDICATED Normal [facility] Comment on above: Performed By: #### E RUR, UMICRO #### [facility] [address] [place] [address] Dr. Gasper Garber CAST NONE SEEN Normal NONE SEEN [facility] Comment on above: Performed By: #### E RUR, UMICRO #### [facility] [address] [place] [address] Dr. Gasper Garber Crystals LM Nom (Urine sed) NONE SEEN Normal NONE SEEN [facility] Comment on above: Performed By: #### E RUR, UMICRO #### [facility] [address] [place] [address] Dr. Gasper Garber Epithelial cells LM Ql (Urine sed) MANY Abnormal NONE SEEN /RARE [facility] Comment on above: Performed By: #### E RUR, UMICRO #### [facility] [address] [place] [address] Dr. Gasper Garber MUCOUS NONE SEEN Normal NONE SEEN [facility] Comment on above: Performed By: #### E RUR, UMICRO #### [facility] [address] [place] [address] Dr. Gasper Garber RBC 0-2 Normal 0-2 [facility] Comment on above: Performed By: #### E RUR, UMICRO #### [facility] [address] [address] [address] Gasper Garber WBC 2-5 Abnormal NONE SEEN [facility] Comment on above: Performed By: #### BERNIE MALDONADO #### [facility] [address] [place] [address] Dr. Gasper Garber XR ABD FLAT UP_PA [...] CHRYSTAL LAUREANO Date: 2021-08-31 15:55 Normal [facility] CBC AUTO DIFFon 08-27-2021 BASO # 0.1 103/ul Normal 0.0-0.1 [facility] Comment on above: Performed By: #### BERNIE MALDONADO #### [facility] [address] [place] [address] Dr. Gasper Garber Basophils/100 WBC (Bld) 0.6 % Normal 0.2-2.0 [facility] Comment on above: Performed By: #### BERNIE MALDONADO #### [facility] [address] [address] [address] Gasper Graber EO # 0.0 103/ul Normal 0.0-0.7 [facility] Comment on above: Performed By: #### BERNIE MALDONADO #### [facility] [address] [place] [address] Dr. Gasper Garber Eosinophils/100 WBC (Bld) 0.5 % Critically low 0.9-7.0 [facility] Comment on above: Performed By: #### BERNIE MALDONADO #### [facility] [address] [place] [address] Dr. Gasper Garber Erythrocyte distribution width (RBC) [Ratio] 13.0 % Normal 11.0-15.0 [facility] Comment on above: Performed By: #### TONI MALDONADORO #### [facility] [address] [place] [address] Dr. Gasper Garber Hematocrit (Bld) [Volume fraction] 35.6 % Critically low 36.0-48.0 [facility] Comment on above: Performed By: #### Bernice HERNDON, UMICRO #### [facility] [address] [place] [address] Dr. Gasper Garber Hemoglobin (Bld) [Mass/Vol] 11.5 g/dL Critically low 12.0-16.0 [facility] Comment on above: Performed By: #### Bernice HERNDON UMICRO #### [facility] [address] [place] [address] Dr. Gasper Garber IG # 0.03 10e3/ul Normal 0.00-0.03 [facility] Comment on above: Performed By: #### Bernice HERNDON UMICRO #### [facility] [address] [place] [address] Dr. Gasper Garber IG % 0.3 % Normal 0.0-0.5 [facility] Comment on above: Performed By: #### Bernice HERNDON, UMICRO #### [facility] [address] [place] [address] Dr. Gasper Garber LYMPH # 1.0 103/ul Critically low 1.2-3.8 [facility] Comment on above: Performed By: #### Bernice HERNDON, UMICRO #### [facility] [address] [place] [address] Dr. Gasper Garber Lymphocytes/100 WBC (Bld) 10.8 % Critically low 20.5-60.0 [facility] Comment on above: Performed By: #### Bernice HERNDON, UMICRO #### [facility] [address] [place] [address] Dr. Gasper Garber MANUAL DIFF REQ NO Normal [facility] Comment on above: Performed By: #### TONI MALDONADORO #### [facility] [address] [place] [address] Dr. Gasper Garber MCH (RBC) [Entitic mass] 31.2 pg Normal 26.7-34.0 [facility] Comment on above: Performed By: #### TONI MALDONADORO #### [facility] [address] [place] [address] Dr. Gasper Garber MCHC (RBC) [Mass/Vol] 32.3 g/dL Normal 29.9-35.2 [facility] Comment on above: Performed By: #### JOANNE MALDONADOICRO #### [facility] [address] [place] [address] Dr. Gasper Garber MCV (RBC) [Entitic vol] 96.5 fL Normal 81.0-99.0 [facility] Comment on above: Performed By: #### TONI MALDONADORO #### [facility] [address] [place] [address] Dr. Gasper Garber MONO # 0.6 103/ul Normal 0.3-0.8 [facility] Comment on above: Performed By: #### TONI MALDONADORO #### [facility] [address] [place] [address] Dr. Gasper Garber Monocytes/100 WBC (Bld) 7.2 % Normal 1.7-12.0 [facility] Comment on above: Performed By: #### JOANNE MALDONADOICRO #### [facility] [address] [place] [address] Dr. Gasper Garber NEUT # 7.1 103/ul Critically high 1.4-6.5 [facility] Comment on above: Performed By: #### TONI MALDONADORO #### [facility] [address] [place] [address] Dr. Gasper Garber Neutrophils/100 WBC (Bld) 80.6 % Critically high 43.0-75.0 [facility] Comment on above: Performed By: #### TONI MALDONADORO #### [facility] [address] [address] [address] Gasper Garber Platelet mean volume (Bld) [Entitic vol] 10.2 fL Normal 9.5-13.5 [facility] Comment on above: Performed By: #### Bernice HERNDON, UMICRO #### [facility] [address], [place] [address] Dr. Gasper Garber PLT 276 103/ul Normal 150-450 [facility] Comment on above: Performed By: #### Bernice HERNDON, UMICRO #### [facility] [address], [place] [address] Dr. Gasper Garber RBC 3.69 106/ul Critically low 4.20-5.40 [facility] Comment on above: Performed By: #### Bernice HERNDON, UMICRO #### [facility] [address], [place] [address] Dr. Gasper Garber WBC 8.8 103/ul Normal 4.0-11.0 [facility] Comment on above: Performed By: #### Bernice HERNDON, UMICRO #### [facility] [address], [place] [address] ABD/PELVIS WO CONon [...] BELIA GAFFNEY Date: 2021-08-27 16:04 Normal [facility] ER URINE PROFILEon 2 Bilirubin Ql (U) Negative Normal NEGATIVE [facility] Comment on above: Performed By: #### Bernice HERNDON UMICRO #### [facility] [address] [place] [address] Dr. Gasper Garber Clarity (U) CLEAR Normal CLEAR [facility] Comment on above: Performed By: #### Bernice HERNDON UMICRO #### [facility] [address] [address] [address] Gasper Garber Color (U) LT. YELLOW Normal YELLOW [facility] Comment on above: Performed By: #### Bernice HERNDON UMICRO #### [facility] [address] [place] [address] Dr. Gasper Garber ERUNIKI A micrscopic examina tion will be performed if indicated. Normal [facility] Comment on above: Performed By: #### Bernice COPELANDR UMICRO #### [facility] [address] [address] [address] Gasper Garber Glucose Ql (U) Negative Normal NEGATIVE [facility] Comment on above: Performed By: #### E RUR UMICRO #### [facility] [address] [place] [address] Dr. Gasper Garber Hemoglobin Ql (U) Negative Normal NEGATIVE [facility] Comment on above: Performed By: #### BERNIE MALDONADO #### [facility] [address] [place] [address] Dr. Gasper Garebr Ketones Ql (U) Negative Normal NEGATIVE [facility] Comment on above: Performed By: #### TONI MALDONADORO #### [facility] [address] [place] [address] Dr. Gasper Garber LEUKOCYTES Negative Normal NEGATIVE [facility] Comment on above: Performed By: #### TONI MALDONADORO #### [facility] [address] [place] [address] Dr. Gasper Garber Nitrite Ql (U) Negative Normal NEGATIVE [facility] Comment on above: Performed By: #### TONI MALDONADORO #### [facility] [address] [place] [address] Dr. Gasper Garber pH (U) 6.5 [pH] Normal 5-9 [facility] Comment on above: Performed By: #### TONI MALDONADORO #### [facility] [address] [place] [address] Dr. Gasper Garber Protein (U) [Mass/Vol] 100 mg/dL Abnormal NEGATIVE/ TRACE [facility] Comment on above: Performed By: #### TONI MALDONADORO #### [facility] [address] [place] [address] Dr. Gasper Garber SPEC GRAVITY 1.015 Normal 1.005-<=1.0 25 [facility] Comment on above: Performed By: #### TONI MALDONADORO #### [facility] [address] [place] [address] Dr. Gasper Garber UR MICRO IND INDICATED Normal [facility] Comment on above: Performed By: #### TONI MALDONADORO #### [facility] [address] [place] [address] Dr. Gasper Garber Urobilinogen Qn (U) 0.2 {Kaushik'U}/dL Normal 0.2 - 1. 0 [facility] Comment on above: Performed By: #### TONI MALDONADORO #### [facility] [address] [address] [address] Gasper Garber PROF CHEM 8 (BAS METB)on Anion gap [Moles/Vol] 14.7 mmol/L Normal [facility] Comment on above: Performed By: #### P T, PTT #### [facility] [address] [place] [address] Dr. Gasper Garber Calcium [Mass/Vol] 10.1 mg/dL Normal 8.5-10.1 [facility] Comment on above: Performed By: #### P T, PTT #### [facility] [address] [place] [address] Dr. Gasper Garber Chloride [Moles/Vol] 105 mmol/L Normal 98-107 [facility] Comment on above: Performed By: #### P T, PTT #### [facility] [address] [place] [address] Dr. Gasper Garber CO2 [Moles/Vol] 24.0 mmol/L Normal 21.0-32.0 [facility] Comment on above: Performed By: #### P T, PTT #### [facility] [address] [place] [address] Dr. Gasper Garber Creatinine [Mass/Vol] 1.56 mg/dL Critically high 0.55-1.02 [facility] Comment on above: Performed By: #### P T, PTT #### [facility] [address] [place] [address] Dr. Gasper Garber EGFR-AF DJIBOUTIAN 39 mL/min/1.73m2 Critically low >=60 [facility] Comment on above: Performed By: #### P T, PTT #### [facility] [address] [place] [address] Dr. Gasper Garber EGFR-NON AF DJIBOUTIAN 32 mL/min/1.73m2 Critically low >=60 [facility] Comment on above: Performed By: #### P T, PTT #### [facility] [address] [place] [address] Dr. Gasper Garber Glucose [Mass/Vol] 209 mg/dL Critically high 74-106 [facility] Comment on above: Performed By: #### P T, PTT #### [facility] [address] [address] [address] Gasper Garber Potassium [Moles/Vol] 4.7 mmol/L Normal 3.5-5.1 [facility] Comment on above: Performed By: #### P T, PTT #### [facility] [address] [place] [address] Dr. Gasper Garber Sodium [Moles/Vol] 139 mmol/L Normal 136-145 [facility] Comment on above: Performed By: #### P T, PTT #### [facility] [address] [place] [address] Dr. Gasper Garber Urea nitrogen [Mass/Vol] 16.0 mg/dL Normal 7.0-18.0 [facility] Comment on above: Performed By: #### P T, PTT #### [facility] [address] [place] [address] Dr. Gasper Garber Urea nitrogen/Creatinine [Mass ratio] 10.3 mg/mg Normal [facility] Comment on above: Performed By: #### P T, PTT #### [facility] [address] [place] [address] Dr. Gasper Garber URINE MICROSCOPIC ONLYon BACTERIA TRACE Abnormal NONE SEEN [facility] Comment on above: Performed By: #### Bernice HERNDON UMICRO #### [facility] [address] [place] [address] Dr. Gasper Garber Bacteria identified Cx Nom (U) NOT INDICATED Normal [facility] Comment on above: Performed By: #### E RUR UMICRO #### [facility] [address] [place] [address] Dr. Gasper Garber CAST NONE SEEN Normal NONE SEEN [facility] Comment on above: Performed By: #### Bernice HERNDON UMICRO #### [facility] [address] [place] [address] Dr. Gasper Garber Crystals LM Nom (Urine sed) NONE SEEN Normal NONE SEEN [facility] Comment on above: Performed By: #### Bernice HERNDON UMICRO #### [facility] [address] [address] [address] Gasper Garber Epithelial cells LM Ql (Urine sed) FEW Abnormal NONE SEEN /RARE [facility] Comment on above: Performed By: #### E YANICK UMICRO #### [facility] [address] [address] [address] Gasper Garber MUCOUS NONE SEEN Normal NONE SEEN [facility] Comment on above: Performed By: #### Bernice HERNDON, UMICRO #### [facility] [address] [address] [address] Gasper Garber RBC NONE SEEN Abnormal 0-2 [facility] Comment on above: Performed By: #### E YANICK UMICRO #### [facility] [address] [address] [address] Gasper Garber WBC 0-2 Abnormal NONE SEEN [facility] Comment on above: Performed By: #### Bernice HERNDON UMICRO #### [facility] [address] [place] [address] Dr. Gasper Garber CULTURE URINEon 08-19-2021 CULTURE URINE Culture Observations : Called to [facility] Escamilla rn 08-19-21 @9153 Culture Observations: METHICILLIN RESISTANT STAPH AUREUS ISOLATED. [...] C Oxacillin >=4 R C Normal [facility] Comment on above: Performed By: #### A CETON #### [facility] [address] [place] [address] Dr. Gasper Garber CBC AUTO DIFFon 06-28-2022 BASO # 0.0 103/ul Normal 0.0-0.1 [facility] Comment on above: Performed By: #### BERNIE MALDONADO #### [facility] [address] [place] [address] Dr. Gasper Garber Basophils/100 WBC (Bld) 0.4 % Normal 0.2-2.0 [facility] Comment on above: Performed By: #### TONI MALDONADORO #### [facility] [address] [place] [address] Dr. Gasper Garber EO # 0.1 103/ul Normal 0.0-0.7 [facility] Comment on above: Performed By: #### TONI MALDONADORO #### [facility] [address] [place] [address] Dr. Gasper Garber Eosinophils/100 WBC (Bld) 1.0 % Normal 0.9-7.0 [facility] Comment on above: Performed By: #### TONI MALDONADORO #### [facility] [address] [place] [address] Dr. Gasper Garber Erythrocyte distribution width (RBC) [Ratio] 12.5 % Normal 11.0-15.0 [facility] Comment on above: Performed By: #### TONI MALDONADORO #### [facility] [address] [place] [address] Dr. Gasper Garber Hematocrit (Bld) [Volume fraction] 35.3 % Critically low 36.0-48.0 [facility] Comment on above: Performed By: #### TONI MALDONADORO #### [facility] [address] [place] [address] Dr. Gasper Garber Hemoglobin (Bld) [Mass/Vol] 11.7 g/dL Critically low 12.0-16.0 [facility] Comment on above: Performed By: #### TONI MALDONADORO #### [facility] [address] [place] [address] Dr. Gasper Garber IG # 0.03 10e3/ul Normal 0.00-0.03 [facility] Comment on above: Performed By: #### Bernice HERNDON UMICRO #### [facility] [address] [place] [address] Dr. Gasper Garber IG % 0.3 % Normal 0.0-0.5 [facility] Comment on above: Performed By: #### E YANICK UMICRO #### [facility] [address] [place] [address] Dr. Gasper Garber LYMPH # 0.9 103/ul Critically low 1.2-3.8 [facility] Comment on above: Performed By: #### E RUCrystal UMICRO #### [facility] [address] [place] [address] Dr. Gasper Garber Lymphocytes/100 WBC (Bld) 9.6 % Critically low 20.5-60.0 [facility] Comment on above: Performed By: #### Bernice HERNDON UMICRO #### [facility] [address] [place] [address] Dr. Gasper Garber MANUAL DIFF REQ NO Normal [facility] Comment on above: Performed By: #### Bernice HERNDON UMICRO #### [facility] [address] [place] [address] Dr. Gasper Garber MCH (RBC) [Entitic mass] 30.8 pg Normal 26.7-34.0 [facility] Comment on above: Performed By: #### Bernice HERNDON UMICRO #### [facility] [address] [place] [address] Dr. Gasper Garber MCHC (RBC) [Mass/Vol] 33.1 g/dL Normal 29.9-35.2 [facility] Comment on above: Performed By: #### E YANICK UMICRO #### [facility] [address] [place] [address] Dr. Gasper Garber MCV (RBC) [Entitic vol] 92.9 fL Normal 81.0-99.0 [facility] Comment on above: Performed By: #### Bernice HERNDON, UMICRO #### [facility] [address] [place] [address] Dr. Gasper Garber MONO # 0.9 103/ul Critically high 0.3-0.8 [facility] Comment on above: Performed By: #### TONI MALDONADORO #### [facility] [address] [place] [address] Dr. Gasper Garber Monocytes/100 WBC (Bld) 9.3 % Normal 1.7-12.0 [facility] Comment on above: Performed By: #### TONI MALDONADORO #### [facility] [address] [place] [address] Dr. Gasper Garber NEUT # 7.7 103/ul Critically high 1.4-6.5 [facility] Comment on above: Performed By: #### TONI MALDONADORO #### [facility] [address] [place] [address] Dr. Gasper Garber Neutrophils/100 WBC (Bld) 79.4 % Critically high 43.0-75.0 [facility] Comment on above: Performed By: #### TONI MALDONADORO #### [facility] [address] [place] [address] Dr. Gasper Garber Platelet mean volume (Bld) [Entitic vol] 10.1 fL Normal 9.5-13.5 [facility] Comment on above: Performed By: #### TONI MALDONADORO #### [facility] [address] [place] [address] Dr. Gasper Garber PLT 302 103/ul Normal 150-450 [facility] Comment on above: Performed By: #### JOANNE MALDONADOICRO #### [facility] [address] [place] [address] Dr. Gasper Garber RBC 3.80 106/ul Critically low 4.20-5.40 [facility] Comment on above: Performed By: #### TONI MALDONADORO #### [facility] [address] [place] [address] Dr. Gasper Garber WBC 9.7 103/ul Normal 4.0-11.0 [facility] Comment on above: Performed By: #### E RUR, UMICRO #### [facility] [address] [address] [address] Gasper Garber ER URINE PROFILEon 2 Bilirubin Ql (U) Negative Normal NEGATIVE [facility] Comment on above: Performed By: #### U ARMICR #### [facility] [address] [address] [address] Gasper Garber Clarity (U) CLEAR Normal CLEAR [facility] Comment on above: Performed By: #### U ARMICR #### [facility] [address] [address] [address] Gasper Garber Color (U) LT. YELLOW Normal YELLOW [facility] Comment on above: Performed By: #### U ARMICR #### [facility] [address] [address] [address] Gasper Garber ERUAHD A micrscopic examina tion will be performed if indicated. Normal [facility] Comment on above: Performed By: #### U ARMICR #### [facility] [address] [place] [address] Dr. Gasper Garber Glucose Ql (U) Negative Normal NEGATIVE [facility] Comment on above: Performed By: #### U ARMICR #### [facility] [address] [address] [address] Gasper Garber Hemoglobin Ql (U) Negative Normal NEGATIVE The [facility] Comment on above: Performed By: #### U ARMICR #### [facility] [address] [address] [address] Gasper Garber Ketones Ql (U) Negative Normal NEGATIVE [facility] Comment on above: Performed By: #### U ARMICR #### [facility] [address] [address] [address] Gasper Garber LEUKOCYTES MODERATE Abnormal NEGATIVE [facility] Comment on above: Performed By: #### U ARMICR #### [facility] [address] [place] [address] Dr. Gasper Garber Nitrite Ql (U) Negative Normal NEGATIVE [facility] Comment on above: Performed By: #### U ARMICR #### [facility] [address] [place] [address] Dr. Gasper Garber pH (U) 7.0 [pH] Normal 5-9 [facility] Comment on above: Performed By: #### U ARMICR #### [facility] [address] [place] [address] Dr. Gasper Garber SPEC GRAVITY 1.010 Normal 1.005-<=1.0 25 [facility] Comment on above: Performed By: #### U ARMICR #### [facility] [address] [place] [address] Dr. Gasper Garber UA PROTEIN Negative Normal NEGATIVE/ TRACE [facility] Comment on above: Performed By: #### U ARMICR #### [facility] [address] [place] [address] Dr. Gasper Garber UR MICRO IND INDICATED Normal [facility] Comment on above: Performed By: #### U ARMICR #### [facility] [address] [place] [address] Dr. Gasper Garber Urobilinogen Qn (U) 0.2 {Kaushik'U}/dL Normal 0.2 - 1. 0 [facility] Comment on above: Performed By: #### U ARMICR #### [facility] [address] [place] [address] Dr. Gasper Garber PROF 14(COMP METB)on 022 Albumin [Mass/Vol] 3.9 g/dL Normal 3.4-5.0 [facility] Comment on above: Performed By: #### P T, PTT #### [facility] [address] [place] [address] Dr. Gasper Garber Albumin/Globulin [Mass ratio] 1.2 {ratio} Normal [facility] Comment on above: Performed By: #### P T, PTT #### [facility] [address] [place] [address] Dr. Gasper Garber ALP [Catalytic activity/Vol] 70 U/L Normal 46-116 [facility] Comment on above: Performed By: #### P T, PTT #### [facility] [address] [address] [address] Gasper Garber ALT [Catalytic activity/Vol] 44 U/L Normal 14-59 [facility] Comment on above: Performed By: #### P T, PTT #### [facility] [address] [address] [address] Gasper Garber Anion gap [Moles/Vol] 17.7 mmol/L Normal [facility] Comment on above: Performed By: #### P T, PTT #### [facility] [address] [address] [address] Gasper Garber AST [Catalytic activity/Vol] 31 U/L Normal 15-37 [facility] Comment on above: Performed By: #### P T, PTT #### [facility] [address] [address] [address] Gasper Garber Bilirubin [Mass/Vol] 0.6 mg/dL Normal 0.2-1.0 [facility] Comment on above: Performed By: #### P T, PTT #### [facility] [address] [address] [address] Gasper Garber Calcium [Mass/Vol] 9.9 mg/dL Normal 8.5-10.1 [facility] Comment on above: Performed By: #### P T, PTT #### [facility] [address] [address] [address] Gasper Garber Chloride [Moles/Vol] 99 mmol/L Normal 98-107 [facility] Comment on above: Performed By: #### P T, PTT #### [facility] [address] [address] [address] Gasper Garber CO2 [Moles/Vol] 24.4 mmol/L Normal 21.0-32.0 [facility] Comment on above: Performed By: #### P T, PTT #### [facility] [address] [address] [address] Gasper Garber Creatinine [Mass/Vol] 3.08 mg/dL Critically high 0.55-1.02 [facility] Comment on above: Performed By: #### P T, PTT #### [facility] [address] [address] [address] Gasper Garber EGFR-AF DJIBOUTIAN 18 mL/min/1.73m2 Critically low >=60 [facility] Comment on above: Performed By: #### P T, PTT #### [facility] [address] [address] [address] Gasper Garber EGFR-NON AF DJIBOUTIAN 15 mL/min/1.73m2 Critically low >=60 [facility] Comment on above: Performed By: #### P T, PTT #### [facility] [address] [address] [address] Gasper Garber Globulin (S) [Mass/Vol] 3.2 g/dL Normal [facility] Comment on above: Performed By: #### P T, PTT #### [facility] [address] [place] [address] Dr. Gasper Garber Glucose [Mass/Vol] 158 mg/dL Critically high 74-106 [facility] Comment on above: Performed By: #### P T, PTT #### [facility] [address] [address] [address] Gasper Garber Potassium [Moles/Vol] 4.1 mmol/L Normal 3.5-5.1 [facility] Comment on above: Performed By: #### P T, PTT #### [facility] [address] [place] [address] Dr. Gasper Garber Protein [Mass/Vol] 7.1 g/dL Normal 6.4-8.2 [facility] Comment on above: Performed By: #### P T, PTT #### [facility] [address] [address] [address] Gasper Garber Sodium [Moles/Vol] 137 mmol/L Normal 136-145 [facility] Comment on above: Performed By: #### P T, PTT #### [facility] [address] [address] [address] Gasper Garber Urea nitrogen [Mass/Vol] 48.0 mg/dL Critically high 7.0-18.0 [facility] Comment on above: Performed By: #### P T, PTT #### [facility] [address] [place] [address] Dr. Gasper Garber Urea nitrogen/Creatinine [Mass ratio] 15.6 mg/mg Normal [facility] Comment on above: Performed By: #### P T, PTT #### [facility] [address] [place] [address] Dr. Gasper Garber TROPONIN, HIGH SENSITIVITYon 08-16-2021 HSTROP 15.7 pg/mL Normal 4.0-51.3 [facility] Comment on above: Result Comment: CUT- OFF POINTS HAVE BEEN ESTABLISHED BASED ON THE FOURTH UNIVERSAL DEFINITIONS OF MYOCARDIAL INFARCTION. THE UPPER REFERENCE LIMIT (URL) OF TROPONIN, DEFINED THE 99TH PERCENTILE OF cTnI DISTRIBUTION IN A REFERENCE POPULATION, HAS BEEN CONFIRMED THE DECISION THRESHOLD FOR [place] DIAGNOSIS. Performed By: #### P T, PTT #### [facility] [address] [place] [address] Dr. Gasper Garber URINE MICROSCOPIC ONLYon BACTERIA TRACE Abnormal NONE SEEN The [facility] Comment on above: Performed By: #### U ARMICR #### [facility] [address] [place] [address] Dr. Gasper Garber Bacteria identified Cx Nom (U) INDICATED Normal [facility] Comment on above: Performed By: #### U ARMICR #### [facility] [address] [place] [address] Dr. Gasper Garber CAST NONE SEEN Normal NONE SEEN The [facility] Comment on above: Performed By: #### U ARMICR #### [facility] [address] [place] [address] Dr. Gasper Garber Crystals LM Nom (Urine sed) NONE SEEN Normal NONE SEEN The [facility] Comment on above: Performed By: #### U ARMICR #### [facility] [address] [place] [address] Dr. Gasper Garber Epithelial cells LM Ql (Urine sed) FEW Abnormal NONE SEEN /RARE [facility] Comment on above: Performed By: #### U ARMICR #### [facility] [address] [place] [address] Dr. Gasper Garber MUCOUS NONE SEEN Normal NONE SEEN [facility] Comment on above: Performed By: #### U ARMICR #### [facility] [address] [address] [address] Gasper Garber RBC 0-2 Normal 0-2 [facility] Comment on above: Performed By: #### U ARMICR #### [facility] [address] [address] [address] Gasper Garber WBC 10-20 Abnormal NONE SEEN [facility] Comment on above: Performed By: #### U ARMICR #### [facility] [address] [address] [address] Gasper Garber PROF CHEM 8 (BAS METB)on Anion gap [Moles/Vol] 13.5 mmol/L Normal [facility] Comment on above: Performed By: #### P T, PTT #### [facility] [address] [place] [address] Dr. Gasper Garber Calcium [Mass/Vol] 9.6 mg/dL Normal 8.5-10.1 [facility] Comment on above: Performed By: #### P T, PTT #### [facility] [address] [address] [address] Gasper Garber Chloride [Moles/Vol] 102 mmol/L Normal 98-107 [facility] Comment on above: Performed By: #### P T, PTT #### [facility] [address] [place] [address] Dr. Gasper Garber CO2 [Moles/Vol] 29.0 mmol/L Normal 21.0-32.0 [facility] Comment on above: Performed By: #### P T, PTT #### [facility] [address] [address] [address] Gasper Garber Creatinine [Mass/Vol] 2.05 mg/dL Critically high 0.55-1.02 [facility] Comment on above: Performed By: #### P T, PTT #### [facility] [address] [address] [address] Gasper Garber EGFR-AF DJIBOUTIAN 29 mL/min/1.73m2 Critically low >=60 [facility] Comment on above: Performed By: #### P T, PTT #### [facility] [address] [address] [address] Gasper Garber EGFR-NON AF DJIBOUTIAN 24 mL/min/1.73m2 Critically low >=60 [facility] Comment on above: Performed By: #### P T, PTT #### [facility] [address] [place] [address] Dr. Gasper Garber Glucose [Mass/Vol] 203 mg/dL Critically high 74-106 [facility] Comment on above: Performed By: #### P T, PTT #### [facility] [address] [place] [address] Dr. Gasper Garber Potassium [Moles/Vol] 4.5 mmol/L Normal 3.5-5.1 [facility] Comment on above: Performed By: #### P T, PTT #### [facility] [address] [place] [address] Dr. Gasper Garber Sodium [Moles/Vol] 140 mmol/L Normal 136-145 [facility] Comment on above: Performed By: #### P T, PTT #### [facility] [address] [place] [address] Dr. Gasper Garber Urea nitrogen [Mass/Vol] 34.0 mg/dL Critically high 7.0-18.0 [facility] Comment on above: Performed By: #### P T, PTT #### [facility] [address] [place] [address] Dr. Gasper Garber Urea nitrogen/Creatinine [Mass ratio] 16.6 mg/mg Normal [facility] Comment on above: Performed By: #### P T, PTT #### [facility] [address] [place] [address] Dr. Gasper Garber BNPon 07-27-2021 Natriuretic peptide B (Bld) [Mass/Vol] 1454.0 pg/mL Critically high <=900.0 [facility] Comment on above: Performed By: #### BERNIE MALDONADO #### [facility] [address] [place] [address] Dr. Gasper Garber CBC AUTO DIFFon 07-27-2021 BASO # 0.1 103/ul Normal 0.0-0.1 [facility] Comment on above: Performed By: #### E YANICK UMICRO #### [facility] [address] [place] [address] Dr. Gasper Garber Basophils/100 WBC (Bld) 0.7 % Normal 0.2-2.0 [facility] Comment on above: Performed By: #### E YANICK, UMICRO #### [facility] [address] [place] [address] Dr. Gasper Garber EO # 0.3 103/ul Normal 0.0-0.7 [facility] Comment on above: Performed By: #### Bernice HERNDON, UMICRO #### [facility] [address] [place] [address] Dr. Gasper Garber Eosinophils/100 WBC (Bld) 4.3 % Normal 0.9-7.0 [facility] Comment on above: Performed By: #### Bernice HERNDON UMICRO #### [facility] [address] [place] [address] Dr. Gasper Garber Erythrocyte distribution width (RBC) [Ratio] 13.0 % Normal 11.0-15.0 [facility] Comment on above: Performed By: #### Bernice HERNDON, UMICRO #### [facility] [address] [place] [address] Dr. Gasper Garber Hematocrit (Bld) [Volume fraction] 34.5 % Critically low 36.0-48.0 [facility] Comment on above: Performed By: #### Bernice HERNDON, UMICRO #### [facility] [address] [place] [address] Dr. Gasper Garber Hemoglobin (Bld) [Mass/Vol] 11.0 g/dL Critically low 12.0-16.0 [facility] Comment on above: Performed By: #### Bernice HERNDON, UMICRO #### [facility] [address] [place] [address] Dr. Gasper Garber IG # 0.02 10e3/ul Normal 0.00-0.03 [facility] Comment on above: Performed By: #### BERNIE MALDONADO #### [facility] [address] [place] [address] Dr. Gasper Garber IG % 0.3 % Normal 0.0-0.5 [facility] Comment on above: Performed By: #### TONI MALDONADORO #### [facility] [address] [place] [address] Dr. Gasper Garber LYMPH # 1.1 103/ul Critically low 1.2-3.8 [facility] Comment on above: Performed By: #### BERNIE MALDONADO #### [facility] [address] [place] [address] Dr. Gasper Garber Lymphocytes/100 WBC (Bld) 14.3 % Critically low 20.5-60.0 [facility] Comment on above: Performed By: #### TONI MALDONADORO #### [facility] [address] [place] [address] Dr. Gasper Garber MANUAL DIFF REQ NO Normal [facility] Comment on above: Performed By: #### BERNIE MALDONADO #### [facility] [address] [place] [address] Dr. Gasper Garber MCH (RBC) [Entitic mass] 30.9 pg Normal 26.7-34.0 [facility] Comment on above: Performed By: #### TONI MALDONADORO #### [facility] [address] [place] [address] Dr. Gasper Garber MCHC (RBC) [Mass/Vol] 31.9 g/dL Normal 29.9-35.2 [facility] Comment on above: Performed By: #### TONI MALDONADORO #### [facility] [address] [place] [address] Dr. Gasper Garber MCV (RBC) [Entitic vol] 96.9 fL Normal 81.0-99.0 [facility] Comment on above: Performed By: #### TONI MALDONADORO #### [facility] [address] [address] [address] Gasper Garber MONO # 0.7 103/ul Normal 0.3-0.8 [facility] Comment on above: Performed By: #### Bernice HERNDON UMICRO #### [facility] [address] [place] [address] Dr. Gasper Garber Monocytes/100 WBC (Bld) 9.3 % Normal 1.7-12.0 [facility] Comment on above: Performed By: #### Bernice HERNDON UMICRO #### [facility] [address] [place] [address] Dr. Gasper Garber NEUT # 5.4 103/ul Normal 1.4-6.5 [facility] Comment on above: Performed By: #### Bernice HERNDON UMICRO #### [facility] [address] [place] [address] Dr. Gasper Garber Neutrophils/100 WBC (Bld) 71.1 % Normal 43.0-75.0 [facility] Comment on above: Performed By: #### Bernice HERNDON ICRO #### [facility] [address] [place] [address] Dr. Gasper Garber Platelet mean volume (Bld) [Entitic vol] 10.2 fL Normal 9.5-13.5 [facility] Comment on above: Performed By: #### Bernice HERNDON ICRO #### [facility] [address] [place] [address] Dr. Gasper Garber PLT 284 103/ul Normal 150-450 [facility] Comment on above: Performed By: #### Bernice HERNDON UMICRO #### [facility] [address] [place] [address] Dr. Gasper Garber RBC 3.56 106/ul Critically low 4.20-5.40 [facility] Comment on above: Performed By: #### Bernice HERNDON UMICRO #### [facility] [address] [place] [address] Dr. Gasper Garber WBC 7.6 103/ul Normal 4.0-11.0 [facility] Comment on above: Performed By: #### TONI MALDONADORO #### [facility] [address] [address] [address] Gasper Garber PROF CHEM 8 (BAS METB)on Anion gap [Moles/Vol] 15.3 mmol/L Normal [facility] Comment on above: Performed By: #### TONI MALDONADORO #### [facility] [address] [address] [address] Gasper Garber Calcium [Mass/Vol] 9.1 mg/dL Normal 8.5-10.1 [facility] Comment on above: Performed By: #### TONI MALDONADORO #### [facility] [address] [place] [address] Dr. Gasper Garber Chloride [Moles/Vol] 100 mmol/L Normal 98-107 [facility] Comment on above: Performed By: #### TONI MALDONADORO #### [facility] [address] [place] [address] Dr. Gasper Garber CO2 [Moles/Vol] 26.8 mmol/L Normal 21.0-32.0 [facility] Comment on above: Performed By: #### TONI MALDONADORO #### [facility] [address] [place] [address] Dr. Gasper Garber Creatinine [Mass/Vol] 2.83 mg/dL Critically high 0.55-1.02 [facility] Comment on above: Performed By: #### TONI MALDONADORO #### [facility] [address] [place] [address] Dr. Gasper Garber EGFR-AF DJIBOUTIAN 20 mL/min/1.73m2 Critically low >=60 [facility] Comment on above: Performed By: #### TONI MALDONADORO #### [facility] [address] [place] [address] Dr. Gasper Garber EGFR-NON AF DJIBOUTIAN 16 mL/min/1.73m2 Critically low >=60 [facility] Comment on above: Performed By: #### E RUR, UMICRO #### [facility] [address] [place] [address] Dr. Gasper Garber Glucose [Mass/Vol] 141 mg/dL Critically high 74-106 [facility] Comment on above: Performed By: #### E MINR, UMICRO #### [facility] [address] [place] [address] Dr. Gasper Garber Potassium [Moles/Vol] 4.1 mmol/L Normal 3.5-5.1 [facility] Comment on above: Performed By: #### E YANICK, UMICRO #### [facility] [address] [place] [address] Dr. Gasper Garber Sodium [Moles/Vol] 138 mmol/L Normal 136-145 [facility] Comment on above: Performed By: #### Bernice HERNDON, UMICRO #### [facility] [address] [place] [address] Dr. Gasper Garber Urea nitrogen [Mass/Vol] 48.0 mg/dL Critically high 7.0-18.0 [facility] Comment on above: Performed By: #### Bernice HERNDON, UMICRO #### [facility] [address] [place] [address] Dr. Gasper Garber Urea nitrogen/Creatinine [Mass ratio] 17.0 mg/mg Normal [facility] Comment on above: Performed By: #### Bernice HERNDON, UMICRO #### [facility] [address] [place] [address] Dr. Gasper Garber CULTURE URINEon 07-18-2021 CULTURE [...] Trimethoprim/Sulfamethoxazo le <=20 S F Normal [facility] Comment on above: Performed By: #### A CETON #### [facility] [address] [place] [address] Dr. Gasper Garber BNPon 07-17-2021 Natriuretic peptide B (Bld) [Mass/Vol] 2592.0 pg/mL Critically high <=900.0 [facility] Comment on above: Performed By: #### U RCX #### [facility] [address] [place] [address] Dr. Gasper Garber CBC AUTO DIFFon 07-17-2021 BASO # 0.0 103/ul Normal 0.0-0.1 [facility] Comment on above: Performed By: #### L ACT #### [facility] [address] [place] [address] Dr. Gasper Garber Basophils/100 WBC (Bld) 0.4 % Normal 0.2-2.0 [facility] Comment on above: Performed By: #### L ACT #### [facility] [address] [place] [address] Dr. Gasper Garber EO # 0.3 103/ul Normal 0.0-0.7 [facility] Comment on above: Performed By: #### L ACT #### [facility] [address] [place] [address] Dr. Gasper Garber Eosinophils/100 WBC (Bld) 4.3 % Normal 0.9-7.0 [facility] Comment on above: Performed By: #### L ACT #### [facility] [address] [place] [address] Dr. Gasper Garber Erythrocyte distribution width (RBC) [Ratio] 12.5 % Normal 11.0-15.0 [facility] Comment on above: Performed By: #### L ACT #### [facility] [address] [place] [address] Dr. Gasper Garber Hematocrit (Bld) [Volume fraction] 30.3 % Critically low 36.0-48.0 [facility] Comment on above: Performed By: #### L ACT #### [facility] [address] [address] [address] Gasper Garber Hemoglobin (Bld) [Mass/Vol] 9.8 g/dL Critically low 12.0-16.0 [facility] Comment on above: Performed By: #### L ACT #### [facility] [address] [address] [address] Gasper Garber IG # 0.02 10e3/ul Normal 0.00-0.03 [facility] Comment on above: Performed By: #### L ACT #### [facility] [address] [address] [address] Gasper Garber IG % 0.3 % Normal 0.0-0.5 [facility] Comment on above: Performed By: #### L ACT #### [facility] [address] [place] [address] Dr. Gasper Garber LYMPH # 1.5 103/ul Normal 1.2-3.8 [facility] Comment on above: Performed By: #### L ACT #### [facility] [address] [place] [address] Dr. Gasper Garber Lymphocytes/100 WBC (Bld) 19.8 % Critically low 20.5-60.0 [facility] Comment on above: Performed By: #### L ACT #### [facility] [address] [place] [address] Dr. Gasper Garber MANUAL DIFF REQ NO Normal [facility] Comment on above: Performed By: #### L ACT #### [facility] [address] [place] [address] Dr. Gasper Garber MCH (RBC) [Entitic mass] 31.3 pg Normal 26.7-34.0 [facility] Comment on above: Performed By: #### L ACT #### [facility] [address] [place] [address] Dr. Gasper Garber MCHC (RBC) [Mass/Vol] 32.3 g/dL Normal 29.9-35.2 [facility] Comment on above: Performed By: #### L ACT #### [facility] [address] [address] [address] Gasper Garber MCV (RBC) [Entitic vol] 96.8 fL Normal 81.0-99.0 [facility] Comment on above: Performed By: #### L ACT #### [facility] [address] [address] [address] Gasper Garber MONO # 0.9 103/ul Critically high 0.3-0.8 [facility] Comment on above: Performed By: #### L ACT #### [facility] [address] [address] [address] Gasper Garber Monocytes/100 WBC (Bld) 11.7 % Normal 1.7-12.0 [facility] Comment on above: Performed By: #### L ACT #### [facility] [address] [place] [address] Dr. Gasper Garber NEUT # 4.8 103/ul Normal 1.4-6.5 [facility] Comment on above: Performed By: #### L ACT #### [facility] [address] [place] [address] Dr. Gasper Garber Neutrophils/100 WBC (Bld) 63.5 % Normal 43.0-75.0 [facility] Comment on above: Performed By: #### L ACT #### [facility] [address] [place] [address] Dr. Gasper Garber Platelet mean volume (Bld) [Entitic vol] 10.9 fL Normal 9.5-13.5 [facility] Comment on above: Performed By: #### L ACT #### [facility] [address] [place] [address] Dr. Gasper Garber PLT 193 103/ul Normal 150-450 [facility] Comment on above: Performed By: #### L ACT #### [facility] [id number] Gasper Garber RBC 3.13 106/ul Critically low 4.20-5.40 The [facility] Comment on above: Performed By: #### L ACT #### [facility] [address] [address] [address] Gasper Garber WBC 7.5 103/ul Normal 4.0-11.0 [facility] Comment on above: Performed By: #### L ACT #### [facility] [address] [place] [address] Dr. Gasper Garber POINT OF CARE GLUCOSEon 06-20 Glucose [Mass/Vol] 244 mg/dL Critically high 74-106 [facility] Comment on above: Performed By: #### L ACT #### [facility] [address] [place] [address] Dr. Gasper Garber Glucose [Mass/Vol] 151 mg/dL Critically high 74-106 [facility] Comment on above: Performed By: #### E BERNIE HERNDON #### [facility] [address] [place] [address] Dr. Gasper Garber PROF 14(COMP METB)on 022 Albumin [Mass/Vol] 2.9 g/dL Critically low 3.4-5.0 [facility] Comment on above: Performed By: #### U RCX #### [facility] [address] [place] [address] Dr. Gasper Garber Albumin/Globulin [Mass ratio] 1.0 {ratio} Normal [facility] Comment on above: Performed By: #### U RCX #### [facility] [address] [place] [address] Dr. Gasper Garber ALP [Catalytic activity/Vol] 63 U/L Normal 46-116 [facility] Comment on above: Performed By: #### U RCX #### [facility] [address] [place] [address] Dr. Gasper Garber ALT [Catalytic activity/Vol] 33 U/L Normal 14-59 [facility] Comment on above: Performed By: #### U RCX #### [facility] [address] [place] [address] Dr. Gasper Garber Anion gap [Moles/Vol] 13.1 mmol/L Normal [facility] Comment on above: Performed By: #### U RCX #### [facility] [address] [address] [address] Gasper Garber AST [Catalytic activity/Vol] 30 U/L Normal 15-37 [facility] Comment on above: Performed By: #### U RCX #### [facility] [address] [address] [address] Gasper Garber Bilirubin [Mass/Vol] 0.3 mg/dL Normal 0.2-1.0 [facility] Comment on above: Performed By: #### U RCX #### [facility] [address] [address] [address] Gasper Garber Calcium [Mass/Vol] 8.7 mg/dL Normal 8.5-10.1 [facility] Comment on above: Performed By: #### U RCX #### [facility] [address] [address] [address] Gasper Garber Chloride [Moles/Vol] 109 mmol/L Critically high 98-107 [facility] Comment on above: Performed By: #### U RCX #### [facility] [address] [address] [address] Gasper Garber CO2 [Moles/Vol] 24.5 mmol/L Normal 21.0-32.0 [facility] Comment on above: Performed By: #### U RCX #### [facility] [address] [place] [address] Dr. Gasper Garber Creatinine [Mass/Vol] 1.33 mg/dL Critically high 0.55-1.02 [facility] Comment on above: Performed By: #### U RCX #### [facility] [address] [address] [address] Gasper Garber EGFR-AF DJIBOUTIAN 47 mL/min/1.73m2 Critically low >=60 [facility] Comment on above: Performed By: #### U RCX #### [facility] [address] [address] [address] Gasper Garber EGFR-NON AF DJIBOUTIAN 39 mL/min/1.73m2 Critically low >=60 [facility] Comment on above: Performed By: #### U RCX #### [facility] [address] [address] [address] Gasper Garber Globulin (S) [Mass/Vol] 3.0 g/dL Normal [facility] Comment on above: Performed By: #### U RCX #### [facility] [address] [place] [address] Dr. Gasper Garber Glucose [Mass/Vol] 142 mg/dL Critically high 74-106 [facility] Comment on above: Performed By: #### U RCX #### [facility] [address] [address] [address] Gasper Garber Potassium [Moles/Vol] 3.6 mmol/L Normal 3.5-5.1 [facility] Comment on above: Performed By: #### U RCX #### [facility] [address] [place] [address] Dr. Gasper Garber Protein [Mass/Vol] 5.9 g/dL Critically low 6.4-8.2 [facility] Comment on above: Performed By: #### U RCX #### [facility] [address] [place] [address] Dr. Gasper Garber Sodium [Moles/Vol] 143 mmol/L Normal 136-145 [facility] Comment on above: Performed By: #### U RCX #### [facility] [address] [place] [address] Dr. Gasper Garber Urea nitrogen [Mass/Vol] 25.0 mg/dL Critically high 7.0-18.0 [facility] Comment on above: Performed By: #### U RCX #### [facility] [address] [place] [address] Dr. Gasper Garber Urea nitrogen/Creatinine [Mass ratio] 18.8 mg/mg Normal [facility] Comment on above: Performed By: #### U RCX #### [facility] [address] [place] [address] Dr. Gasper Garber BNPon 07-16-2021 Natriuretic peptide B (Bld) [Mass/Vol] 761.0 pg/mL Normal <=900.0 [facility] Comment on above: Performed By: #### P T, PTT #### [facility] [address] [place] [address] Dr. Gasper Garber CBC AUTO DIFFon 07-16-2021 BASO # 0.1 103/ul Normal 0.0-0.1 [facility] Comment on above: Performed By: #### L ACT #### [facility] [address] [place] [address] Dr. Gasper Garber Basophils/100 WBC (Bld) 0.6 % Normal 0.2-2.0 [facility] Comment on above: Performed By: #### L ACT #### [facility] [address] [place] [address] Dr. Gasper Garber EO # 0.2 103/ul Normal 0.0-0.7 [facility] Comment on above: Performed By: #### L ACT #### [facility] [address] [place] [address] Dr. Gasper Garber Performed By: #### P T, PTT #### [facility] [address] [place] [address] Dr. Gasper Garber Eosinophils/100 WBC (Bld) 2.3 % Normal 0.9-7.0 [facility] Comment on above: Performed By: #### L ACT #### [facility] [address] [place] [address] Dr. Gasper Garber Erythrocyte distribution width (RBC) [Ratio] 12.3 % Normal 11.0-15.0 [facility] Comment on above: Performed By: #### L ACT #### [facility] [address] [place] [address] Dr. Gasper Garber Hematocrit (Bld) [Volume fraction] 32.3 % Critically low 36.0-48.0 [facility] Comment on above: Performed By: #### L ACT #### [facility] [address] [place] [address] Dr. Gasper Garber Hemoglobin (Bld) [Mass/Vol] 10.3 g/dL Critically low 12.0-16.0 [facility] Comment on above: Performed By: #### L ACT #### [facility] [address] [place] [address] Dr. Gasper Garber IG # 0.01 10e3/ul Normal 0.00-0.03 [facility] Comment on above: Performed By: #### L ACT #### [facility] [address] [place] [address] Dr. Gasper Garber IG % 0.1 % Normal 0.0-0.5 [facility] Comment on above: Performed By: #### L ACT #### [facility] [address] [place] [address] Dr. Gasper Garber LYMPH # 1.1 103/ul Critically low 1.2-3.8 [facility] Comment on above: Performed By: #### L ACT #### [facility] [address] [place] [address] Dr. Gasper Garbre Lymphocytes/100 WBC (Bld) 12.2 % Critically low 20.5-60.0 [facility] Comment on above: Performed By: #### L ACT #### [facility] [address] [place] [address] Dr. Gasper Garber MANUAL DIFF REQ NO Normal [facility] Comment on above: Performed By: #### L ACT #### [facility] [address] [place] [address] Dr. Gasper Garber Performed By: #### P T, PTT #### [facility] [address] [place] [address] Dr. Gasper Garber MCH (RBC) [Entitic mass] 30.8 pg Normal 26.7-34.0 [facility] Comment on above: Performed By: #### L ACT #### [facility] [address] [place] [address] Dr. Gasper Garber MCHC (RBC) [Mass/Vol] 31.9 g/dL Normal 29.9-35.2 [facility] Comment on above: Performed By: #### L ACT #### [facility] [address] [place] [address] Dr. Gasper Garber MCV (RBC) [Entitic vol] 96.7 fL Normal 81.0-99.0 [facility] Comment on above: Performed By: #### L ACT #### [facility] [address] [address] [address] Gasper Garber MONO # 0.8 103/ul Normal 0.3-0.8 [facility] Comment on above: Performed By: #### L ACT #### [facility] [address] [address] [address] Gasper Garber Monocytes/100 WBC (Bld) 8.8 % Normal 1.7-12.0 [facility] Comment on above: Performed By: #### L ACT #### [facility] [address] [address] [address] Gasper Garber NEUT # 6.5 103/ul Normal 1.4-6.5 [facility] Comment on above: Performed By: #### L ACT #### [facility] [address] [address] [address] Gasper Garber Neutrophils/100 WBC (Bld) 76.0 % Critically high 43.0-75.0 [facility] Comment on above: Performed By: #### L ACT #### [facility] [address] [address] [address] Gasper Garber Platelet mean volume (Bld) [Entitic vol] 10.6 fL Normal 9.5-13.5 [facility] Comment on above: Performed By: #### L ACT #### [facility] [address] [address] [address] Gasper Garber PLT 214 103/ul Normal 150-450 [facility] Comment on above: Performed By: #### L ACT #### [facility] [address] [address] [address] Gasper Garber RBC 3.34 106/ul Critically low 4.20-5.40 [facility] Comment on above: Performed By: #### L ACT #### [facility] [address] [address] [address] Gasper Garbre WBC 8.6 103/ul Normal 4.0-11.0 [facility] Comment on above: Performed By: #### L ACT #### [facility] [address] [place] [address] Dr. Gasper Garber BASO # 0.0 103/ul Normal 0.0-0.1 [facility] Comment on above: Performed By: #### P T, PTT #### [facility] [address] [place] [address] Dr. Gasper Garber Basophils/100 WBC (Bld) 0.4 % Normal 0.2-2.0 [facility] Comment on above: Performed By: #### P T, PTT #### [facility] [address] [place] [address] Dr. Gasper Garber Eosinophils/100 WBC (Bld) 2.5 % Normal 0.9-7.0 [facility] Comment on above: Performed By: #### P T, PTT #### [facility] [address] [place] [address] Dr. Gasper Garber Erythrocyte distribution width (RBC) [Ratio] 12.4 % Normal 11.0-15.0 [facility] Comment on above: Performed By: #### P T, PTT #### [facility] [address] [place] [address] Dr. Gasper Garber Hematocrit (Bld) [Volume fraction] 29.3 % Critically low 36.0-48.0 [facility] Comment on above: Performed By: #### P T, PTT #### [facility] [address] [place] [address] Dr. Gasper Garber Hemoglobin (Bld) [Mass/Vol] 9.5 g/dL Critically low 12.0-16.0 [facility] Comment on above: Performed By: #### P T, PTT #### [facility] [address] [place] [address] Dr. Gasper Garber IG # 0.02 10e3/ul Normal 0.00-0.03 [facility] Comment on above: Performed By: #### P T, PTT #### [facility] [address] [place] [address] Dr. Gasper Garber IG % 0.2 % Normal 0.0-0.5 [facility] Comment on above: Performed By: #### P T, PTT #### [facility] [address] [place] [address] Dr. Gasper Garber LYMPH # 1.3 103/ul Normal 1.2-3.8 [facility] Comment on above: Performed By: #### P T, PTT #### [facility] [address] [place] [address] Dr. Gasper Garber Lymphocytes/100 WBC (Bld) 16.4 % Critically low 20.5-60.0 [facility] Comment on above: Performed By: #### P T, PTT #### [facility] [address] [place] [address] Dr. Gasper Garber MCH (RBC) [Entitic mass] 31.3 pg Normal 26.7-34.0 [facility] Comment on above: Performed By: #### P T, PTT #### [facility] [address] [place] [address] Dr. Gasper Garber MCHC (RBC) [Mass/Vol] 32.4 g/dL Normal 29.9-35.2 [facility] Comment on above: Performed By: #### P T, PTT #### [facility] [address] [place] [address] Dr. Gasper Garber MCV (RBC) [Entitic vol] 96.4 fL Normal 81.0-99.0 [facility] Comment on above: Performed By: #### P T, PTT #### [facility] [address] [place] [address] Dr. Gasper Garber MONO # 0.9 103/ul Critically high 0.3-0.8 [facility] Comment on above: Performed By: #### P T, PTT #### [facility] [address] [place] [address] Dr. Gasper Garber Monocytes/100 WBC (Bld) 10.5 % Normal 1.7-12.0 [facility] Comment on above: Performed By: #### P T, PTT #### [facility] [address] [place] [address] Dr. Gasper Garber NEUT # 5.7 103/ul Normal 1.4-6.5 [facility] Comment on above: Performed By: #### P T, PTT #### [facility] [address] [place] [address] Dr. Gasper Garber Neutrophils/100 WBC (Bld) 70.0 % Normal 43.0-75.0 [facility] Comment on above: Performed By: #### P T, PTT #### [facility] [address] [place] [address] Dr. Gasper Garber Platelet mean volume (Bld) [Entitic vol] 10.9 fL Normal 9.5-13.5 [facility] Comment on above: Performed By: #### P T, PTT #### [facility] [address] [place] [address] Dr. Gasper Garber PLT 203 103/ul Normal 150-450 [facility] Comment on above: Performed By: #### P T, PTT #### [facility] [address] [place] [address] Dr. Gasper Garber RBC 3.04 106/ul Critically low 4.20-5.40 [facility] Comment on above: Performed By: #### P T, PTT #### [facility] [address] [place] [address] Dr. Gasper Garber WBC 8.2 103/ul Normal 4.0-11.0 [facility] Comment on above: Performed By: #### P T, PTT #### [facility] [address] [place] [address] Dr. Gasper Garber CULTURE BLOODon 07-16-2021 Microscopic examination of blood, culture Culture Observations: NO GROWTH AT 5 DAYS. Normal [facility] Comment on above: Performed By: #### B [id number] #### [facility] [address] [place] [address] Dr. Gasper Garber Microscopic examination of blood, culture Culture Observations: NO GROWTH AT 5 DAYS. [facility] Comment on above: Performed By: #### A CETON #### [facility] [address] [place] [address] Dr. Gasper Garber POINT OF CARE GLUCOSEon 05-2022 Glucose [Mass/Vol] 155 mg/dL Critically high 74-106 [facility] Comment on above: Performed By: #### P T, PTT #### [facility] [address] [address] [address] Gasper Garber Glucose [Mass/Vol] 165 mg/dL Critically high 74-106 [facility] Comment on above: Performed By: #### P OCGLUC #### [facility] [address] [address] [address] Gasper Garber Glucose [Mass/Vol] 232 mg/dL Critically high 74-106 [facility] Comment on above: Performed By: #### E BERNIE HERNDON #### [facility] [address] [place] [address] Dr. Gasper Garber PROF 14(COMP METB)on 022 Albumin [Mass/Vol] 2.9 g/dL Critically low 3.4-5.0 [facility] Comment on above: Performed By: #### P T, PTT #### [facility] [address] [place] [address] Dr. Gasper Garber Albumin/Globulin [Mass ratio] 1.0 {ratio} [facility] Comment on above: Performed By: #### P T, PTT #### [facility] [address] [place] [address] Dr. Gasper Garber ALP [Catalytic activity/Vol] 62 U/L Normal 46-116 [facility] Comment on above: Performed By: #### P T, PTT #### [facility] [address] [place] [address] Dr. Gasper Garber ALT [Catalytic activity/Vol] 34 U/L Normal 14-59 [facility] Comment on above: Performed By: #### P T, PTT #### [facility] [address] [place] [address] Dr. Gasper Garber Anion gap [Moles/Vol] 10.8 mmol/L Normal [facility] Comment on above: Performed By: #### P T, PTT #### [facility] [address] [address] [address] Gasper Garber AST [Catalytic activity/Vol] 14 U/L Critically low 15-37 [facility] Comment on above: Performed By: #### P T, PTT #### [facility] [address] [place] [address] Dr. Gasper Garber Bilirubin [Mass/Vol] 0.4 mg/dL Normal 0.2-1.0 [facility] Comment on above: Performed By: #### P T, PTT #### [facility] [address] [place] [address] Dr. Gasper Garber Calcium [Mass/Vol] 8.4 mg/dL Critically low 8.5-10.1 Th [facility] Comment on above: Performed By: #### P T, PTT #### [facility] [address] [place] [address] Dr. Gasper Garber Chloride [Moles/Vol] 105 mmol/L Normal 98-107 [facility] Comment on above: Performed By: #### P T, PTT #### [facility] [address] [place] [address] Dr. Gasper Garber CO2 [Moles/Vol] 26.3 mmol/L Normal 21.0-32.0 [facility] Comment on above: Performed By: #### P T, PTT #### [facility] [address] [place] [address] Dr. Gasper Garber Creatinine [Mass/Vol] 2.20 mg/dL Critically high 0.55-1.02 [facility] Comment on above: Performed By: #### P T, PTT #### [facility] [address] [place] [address] Dr. Gasper Garber EGFR-AF DJIBOUTIAN 26 mL/min/1.73m2 Critically low >=60 [facility] Comment on above: Performed By: #### P T, PTT #### [facility] [address] [place] [address] Dr. Gasper Garber EGFR-NON AF DJIBOUTIAN 22 mL/min/1.73m2 Critically low >=60 [facility] Comment on above: Performed By: #### P T, PTT #### [facility] [address] [place] [address] Dr. Gasper Garber Globulin (S) [Mass/Vol] 2.9 g/dL Normal [facility] Comment on above: Performed By: #### P T, PTT #### [facility] [address] [place] [address] Dr. Gasper Garber Glucose [Mass/Vol] 167 mg/dL Critically high 74-106 [facility] Comment on above: Performed By: #### P T, PTT #### [facility] [address] [place] [address] Dr. Gasper Garber Potassium [Moles/Vol] 3.1 mmol/L Critically low 3.5-5.1 [facility] Comment on above: Performed By: #### P T, PTT #### [facility] [address] [place] [address] Dr. Gasper Garber Protein [Mass/Vol] 5.8 g/dL Critically low 6.4-8.2 [facility] Comment on above: Performed By: #### P T, PTT #### [facility] [address] [place] [address] Dr. Gasper Garber Sodium [Moles/Vol] 139 mmol/L Normal 136-145 [facility] Comment on above: Performed By: #### P T, PTT #### [facility] [address] [place] [address] Dr. Gasper Garber Urea nitrogen [Mass/Vol] 41.0 mg/dL Critically high 7.0-18.0 [facility] Comment on above: Performed By: #### P T, PTT #### [facility] [address] [place] [address] Dr. Gasper Garber Urea nitrogen/Creatinine [Mass ratio] 18.6 mg/mg Normal [facility] Comment on above: Performed By: #### P T, PTT #### [facility] [address] [place] [address] Dr. Gasper Garber CBC AUTO DIFFon 07-15-2021 BASO # 0.0 103/ul Normal 0.0-0.1 [facility] Comment on above: Performed By: #### P T, PTT #### [facility] [address] [place] [address] Dr. Gasper Garber Basophils/100 WBC (Bld) 0.4 % Normal 0.2-2.0 [facility] Comment on above: Performed By: #### P T, PTT #### [facility] [address] [place] [address] Dr. Gasper Garber EO # 0.2 103/ul Normal 0.0-0.7 [facility] Comment on above: Performed By: #### P T, PTT #### [facility] [address] [place] [address] Dr. Gasper Garber Eosinophils/100 WBC (Bld) 1.6 % Normal 0.9-7.0 [facility] Comment on above: Performed By: #### P T, PTT #### [facility] [address] [place] [address] Dr. Gasper Garber Erythrocyte distribution width (RBC) [Ratio] 12.4 % Normal 11.0-15.0 [facility] Comment on above: Performed By: #### P T, PTT #### [facility] [address] [place] [address] Dr. Gasper Garber Hematocrit (Bld) [Volume fraction] 34.7 % Critically low 36.0-48.0 [facility] Comment on above: Performed By: #### P T, PTT #### [facility] [address] [place] [address] Dr. Gasper Garber Hemoglobin (Bld) [Mass/Vol] 11.4 g/dL Critically low 12.0-16.0 [facility] Comment on above: Performed By: #### P T, PTT #### [facility] [address] [place] [address] Dr. Gasper Garber IG # 0.02 10e3/ul Normal 0.00-0.03 [facility] Comment on above: Performed By: #### P T, PTT #### [facility] [address] [place] [address] Dr. Gasper Garber IG % 0.2 % Normal 0.0-0.5 [facility] Comment on above: Performed By: #### P T, PTT #### [facility] [address] [place] [address] Dr. Gasper Garber LYMPH # 1.6 103/ul Normal 1.2-3.8 [facility] Comment on above: Performed By: #### P T, PTT #### [facility] [address] [place] [address] Dr. Gasper Garber Lymphocytes/100 WBC (Bld) 17.7 % Critically low 20.5-60.0 [facility] Comment on above: Performed By: #### P T, PTT #### [facility] [address] [place] [address] Dr. Gasper Garber MANUAL DIFF REQ NO Normal [facility] Comment on above: Performed By: #### P T, PTT #### [facility] [address] [place] [address] Dr. Gasper Garber MCH (RBC) [Entitic mass] 31.1 pg Normal 26.7-34.0 [facility] Comment on above: Performed By: #### P T, PTT #### [facility] [address] [place] [address] Dr. Gasper Garber MCHC (RBC) [Mass/Vol] 32.9 g/dL Normal 29.9-35.2 [facility] Comment on above: Performed By: #### P T, PTT #### [facility] [address] [place] [address] Dr. Gasper Garber MCV (RBC) [Entitic vol] 94.8 fL Normal 81.0-99.0 [facility] Comment on above: Performed By: #### P T, PTT #### [facility] [address] [place] [address] Dr. Gasper Garber MONO # 1.0 103/ul Critically high 0.3-0.8 [facility] Comment on above: Performed By: #### P T, PTT #### [facility] [address] [place] [address] Dr. Gasper Garber Monocytes/100 WBC (Bld) 10.3 % Normal 1.7-12.0 [facility] Comment on above: Performed By: #### P T, PTT #### [facility] [address] [place] [address] Dr. Gasper Garber NEUT # 6.4 103/ul Normal 1.4-6.5 [facility] Comment on above: Performed By: #### P T, PTT #### [facility] [address] [place] [address] Dr. Gasper Garber Neutrophils/100 WBC (Bld) 69.8 % Normal 43.0-75.0 [facility] Comment on above: Performed By: #### P T, PTT #### [facility] [address] [place] [address] Dr. Gasper Garber Platelet mean volume (Bld) [Entitic vol] 10.4 fL Normal 9.5-13.5 [facility] Comment on above: Performed By: #### P T, PTT #### [facility] [address] [place] [address] Dr. Gasper Garber PLT 269 103/ul Normal 150-450 [facility] Comment on above: Performed By: #### P T, PTT #### [facility] [address] [place] [address] Dr. Gasper Garber RBC 3.66 106/ul Critically low 4.20-5.40 [facility] Comment on above: Performed By: #### P T, PTT #### [facility] [address] [place] [address] Dr. Gasper Garber WBC 9.2 103/ul Normal 4.0-11.0 [facility] Comment on above: Performed By: #### P T, PTT #### [facility] [address] [place] [address] ABD/PELVIS WO CONon [...] NASRIN CHIU Date: 2021-07-15 18:16 Normal [facility] Covid-19 PCR (CVDTB)on 06-20 SARS-CoV-2 (COVID-19) RNA ANA LUISA+probe Ql (Unsp spec) Not detected Normal NOT DETECTED [facility] Comment on above: Result Comment: When [...] for this test is supported by the [place] of Health and Human Service's declaration that [...] used). Performed By: #### L ACT #### [facility] [address] [place] [address] Dr. Gasper JENKINS URINE PROFILEon 2 Bilirubin Ql (U) Negative Normal NEGATIVE [facility] Comment on above: Performed By: #### Bernice HERNDON UMICRO #### [facility] [address] [place] [address] Dr. Gasper Garber Clarity (U) CLEAR Normal CLEAR [facility] Comment on above: Performed By: #### E YANICK UMICRO #### [facility] [address] [address] [address] Gasper Garber Color (U) LT. YELLOW Normal YELLOW [facility] Comment on above: Performed By: #### E YANICK UMICRO #### [facility] [address] [place] [address] Dr. Gasper RIVAS A micrscopic examina tion will be performed if indicated. Normal [facility] Comment on above: Performed By: #### Bernice HERNDON UMICRO #### [facility] [address] [place] [address] Dr. Gasper Garber Glucose Ql (U) Negative Normal NEGATIVE [facility] Comment on above: Performed By: #### Bernice HERNDON UMICRO #### [facility] [address] [place] [address] Dr. Gasper Garber Hemoglobin Ql (U) Negative Normal NEGATIVE [facility] Comment on above: Performed By: #### Bernice HERNDON UMICRO #### [facility] [address] [place] [address] Dr. Gasper Garber Ketones Ql (U) Negative Normal NEGATIVE [facility] Comment on above: Performed By: #### Bernice HERNDON UMICRO #### [facility] [address] [place] [address] Dr. Gasper Garber LEUKOCYTES Negative Normal NEGATIVE [facility] Comment on above: Performed By: #### Bernice HERNDON UMICRO #### [facility] [address] [place] [address] Dr. Gasper Garber Nitrite Ql (U) Negative Normal NEGATIVE [facility] Comment on above: Performed By: #### Bernice HERNDON UMICRO #### [facility] [address] [place] [address] Dr. Gasper Garber pH (U) 5.5 [pH] Normal 5-9 [facility] Comment on above: Performed By: #### BERNIE MALDONADO #### [facility] [address] [place] [address] Dr. Gasper Garber SPEC GRAVITY 1.020 Normal 1.005-<=1.0 25 [facility] Comment on above: Performed By: #### TONI MALDONADORO #### [facility] [address] [place] [address] Dr. Gasper Garber UA PROTEIN TRACE Normal NEGATIVE/ TRACE [facility] Comment on above: Performed By: #### BERNIE MALDONADO #### [facility] [address] [place] [address] Dr. Gasper Garber UR MICRO IND INDICATED Normal [facility] Comment on above: Performed By: #### BERNIE MALDONADO #### [facility] [address] [place] [address] Dr. Gasper Garber Urobilinogen Qn (U) 0.2 {Kaushik'U}/dL Normal 0.2 - 1. 0 [facility] Comment on above: Performed By: #### TONI MALDONADORO #### [facility] [address] [place] [address] Dr. Gasper Garber FREE T3on 07-15-2021 FREE T3 2.45 pg/mlL Normal 2.18-3.98 [facility] Comment on above: Performed By: #### P T, PTT #### [facility] [address] [place] [address] Dr. Gasper Garber FREE T4on 07-15-2021 Free T4 [Mass/Vol] 1.19 ng/dL Normal 0.76-1.46 [facility] Comment on above: Performed By: #### A CETON #### [facility] [address] [place] [address] Dr. Gasper Garber LACTATE/LACTIC ACIDon 2021 Lactate [Moles/Vol] 2.0 mmol/L Critically high 0.4-1.9 [facility] Comment on above: Performed By: #### L ACT #### [facility] [address] [place] [address] Dr. Gasper Garber Lactate [Moles/Vol] 4.0 mmol/L Critically high 0.4-1.9 [facility] Comment on above: Performed By: #### L ACT #### [facility] [address] [place] [address] Dr. Gasper Garber LIPASEon 07-15-2021 Lipase [Catalytic activity/Vol] 93.0 U/L Normal 73.0-393.0 [facility] Comment on above: Performed By: #### A CETON #### [facility] [address] [place] [address] Dr. Gasper Garber POINT OF CARE GLUCOSEon 06-20 Glucose [Mass/Vol] 200 mg/dL Critically high 74-106 [facility] Comment on above: Performed By: #### P T, PTT #### [facility] [address] [place] [address] Dr. Gasper Garber PROF 14(COMP METB)on 022 Albumin [Mass/Vol] 3.5 g/dL Normal 3.4-5.0 [facility] Comment on above: Performed By: #### A CETON #### [facility] [address] [place] [address] Dr. Gasper Garber Albumin/Globulin [Mass ratio] 1.0 {ratio} Normal [facility] Comment on above: Performed By: #### A CETON #### [facility] [address] [place] [address] Dr. Gasper Garber ALP [Catalytic activity/Vol] 81 U/L Normal 46-116 [facility] Comment on above: Performed By: #### A CETON #### [facility] [address] [place] [address] Dr. Gasper Garber ALT [Catalytic activity/Vol] 43 U/L Normal 14-59 [facility] Comment on above: Performed By: #### A CETON #### [facility] [address] [place] [address] Dr. Gasper Garber Anion gap [Moles/Vol] 13.6 mmol/L Normal [facility] Comment on above: Performed By: #### A CETON #### [facility] [address] [address] [address] Gasper Garber AST [Catalytic activity/Vol] 19 U/L Normal 15-37 [facility] Comment on above: Performed By: #### A CETON #### [facility] [address] [address] [address] Gasper Garber Bilirubin [Mass/Vol] 0.6 mg/dL Normal 0.2-1.0 [facility] Comment on above: Performed By: #### A CETON #### [facility] [address] [address] [address] Gasper Garber Calcium [Mass/Vol] 8.9 mg/dL Normal 8.5-10.1 [facility] Comment on above: Performed By: #### A CETON #### [facility] [address] [address] [address] Gasper Garber Chloride [Moles/Vol] 103 mmol/L Normal 98-107 [facility] Comment on above: Performed By: #### A CETON #### [facility] [address] [address] [address] Gasper Garber CO2 [Moles/Vol] 25.9 mmol/L Normal 21.0-32.0 [facility] Comment on above: Performed By: #### A CETON #### [facility] [address] [address] [address] Gasper Garber Creatinine [Mass/Vol] 2.91 mg/dL Critically high 0.55-1.02 [facility] Comment on above: Performed By: #### A CETON #### [facility] [address] [place] [address] Dr. Gasper Garber EGFR-AF DJIBOUTIAN 19 mL/min/1.73m2 Critically low >=60 [facility] Comment on above: Performed By: #### A CETON #### [facility] [address] [place] [address] Dr. Gasper Garber EGFR-NON AF DJIBOUTIAN 16 mL/min/1.73m2 Critically low >=60 [facility] Comment on above: Performed By: #### A CETON #### [facility] [address] [address] [address] Gasper Garber Globulin (S) [Mass/Vol] 3.5 g/dL Normal [facility] Comment on above: Performed By: #### A CETON #### [facility] [address] [address] [address] Gasper Garber Glucose [Mass/Vol] 201 mg/dL Critically high 74-106 [facility] Comment on above: Performed By: #### A CETON #### [facility] [address] [place] [address] Dr. Gasper Garber Potassium [Moles/Vol] 3.5 mmol/L Normal 3.5-5.1 [facility] Comment on above: Performed By: #### A CETON #### [facility] [address] [address] [address] Gasper Garber Protein [Mass/Vol] 7.0 g/dL Normal 6.4-8.2 [facility] Comment on above: Performed By: #### A CETON #### [facility] [address] [place] [address] Dr. Gasper Garber Sodium [Moles/Vol] 139 mmol/L Normal 136-145 [facility] Comment on above: Performed By: #### A CETON #### [facility] [address] [address] [address] Gasper Garber Urea nitrogen [Mass/Vol] 46.0 mg/dL Critically high 7.0-18.0 [facility] Comment on above: Performed By: #### A CETON #### [facility] [address] [place] [address] Dr. Gasper Garber Urea nitrogen/Creatinine [Mass ratio] 15.8 mg/mg Normal [facility] Comment on above: Performed By: #### A CETON #### [facility] [address] [place] [address] Dr. Gasper Garber PROTIMEon 07-15-2021 INR Coag (PPP) [Relative time] 1.03 {INR} Normal [facility] Comment on above: Performed By: #### P T, PTT #### [facility] [address] [place] [address] Dr. Gasper Garber INR GUIDELINES SEE BELOW Normal [facility] Comment on above: Result Comment: JESUS RED INR: 2.0 - 3.0 CONDITIONS NOT LISTED BELOW 2.5 - 3.5 FOR PROSTHETIC HEART VALVE REPLACEMENT 2.5 - 3.5 RECURRENT THROMBOSIS Performed By: #### P T, PTT #### [facility] [address] [place] [address] Dr. Gasper Garber PT Coag (PPP) [Time] 11.1 s Normal 9.0-11.6 [facility] Comment on above: Performed By: #### P T, PTT #### [facility] [address] [place] [address] Dr. Gasper Garber PTTon 07-15-2021 aPTT Coag (Bld) [Time] 24.2 s Normal 22.3-36.2 [facility] Comment on above: Performed By: #### P T, PTT #### [facility] [address] [place] [address] Dr. Gasper Garber TROPONIN, HIGH SENSITIVITYon 07-15-2021 HSTROP 23.9 pg/mL Normal 4.0-51.3 [facility] Comment on above: Result Comment: CUT- OFF POINTS HAVE BEEN ESTABLISHED BASED ON THE FOURTH UNIVERSAL DEFINITIONS OF MYOCARDIAL INFARCTION. THE UPPER REFERENCE LIMIT (URL) OF TROPONIN, DEFINED THE 99TH PERCENTILE OF cTnI DISTRIBUTION IN A REFERENCE POPULATION, HAS BEEN CONFIRMED THE DECISION THRESHOLD FOR [place] DIAGNOSIS. Performed By: #### L ACT #### [facility] [address] [place] [address] Dr. Gasper Garber TSHon 07-15-2021 TSH 3.864 uIU/mL Critically high 0.358-3.740 [facility] Comment on above: Performed By: #### A CETON #### [facility] [address] [place] [address] Dr. Gasper Garber TSH RANGE SEE BELOW Normal [facility] Comment on above: Result Comment: <0.3 4 UIU/ml HYPERTHYROID 0.34-5.60 UIU/ml EUTHYROID >5.60 UIU/ml HYPOTHYROID Performed By: #### A CETON #### [facility] [address] [place] [address] Dr. Gasper Garber URINE MICROSCOPIC ONLYon BACTERIA MODERATE Abnormal NONE SEEN [facility] Comment on above: Performed By: #### E MINR, UMICRO #### [facility] [address] [place] [address] Dr. Gasper Garber Bacteria identified Cx Nom (U) INDICATED Normal [facility] Comment on above: Performed By: #### E MINR, UMICRO #### [facility] [address] [place] [address] Dr. Gasper Garber CAST SEEN Abnormal NONE SEEN [facility] Comment on above: Performed By: #### Bernice HERNDON UMICRO #### [facility] [address] [place] [address] Dr. Gasper Garber Crystals LM Nom (Urine sed) NONE SEEN Normal NONE SEEN [facility] Comment on above: Performed By: #### Bernice HERNDON UMICRO #### [facility] [address] [place] [address] Dr. Gasper Garber Epithelial cells LM Ql (Urine sed) RARE Normal NONE SEEN /RARE [facility] Comment on above: Performed By: #### Bernice HERNDON UMICRO #### [facility] [address] [place] [address] Dr. Gasper Garber MUCOUS NONE SEEN Normal NONE SEEN [facility] Comment on above: Performed By: #### Bernice HERNDON, UMICRO #### [facility] [address] [place] [address] Dr. Gasper Garber RBC NONE SEEN Abnormal 0-2 [facility] Comment on above: Performed By: #### E RUCrystal, UMICRO #### [facility] [address] [place] [address] Dr. Gasper Garber WBC 2-5 Abnormal NONE SEEN [facility] Comment on above: Performed By: #### E BERNIE HERNDON #### [facility] [address] [address] [address] Gasper Garber XR chest 1V portableon 07-01 XR chest 1V portable [facility] [place] [address] [place] [address] XRay Report Signed Patient: Elif Turner MR#: [id number] : 1945 Acct:[id number] Age/Sex: 75 / F ADM Date: 06/24/21 Loc: Room: [address] [place] [address] Type: DIS IN Attending Dr: Rusty Amor [...] Valle Jr., M.D.07/01/2021 9:08 AM Dictation Location: [place] [address] Transcribed By: [facility] 07/01/21907 Dictated By: Adarsh Valle Jr, MD 07/01/21906 Signed By: 07/01/21 09 Normal [facility] Activated partial thrombopla stin time (aPTT) in platelet poor plasma by coagulation aOrdered By: Marlon Leon on 06-25-2021 aPTT Coag (PPP) [Time] 24.8 s 25.1-36.5 [facility] Basophils Auto (Bld) [#/Vol] Ordered By: Marlon Leon on 06-25-2021 Basophils (Bld) [#/Vol] 0.0 10*3/uL 0.0-0.2 [facility] Basophils/100 WBC Auto (Bld) Ordered By: Marlon Leon on 06-25-2021 Basophils/100 WBC (Bld) 0.3 % [facility] Blood hemoglobin measurement (mass/volume)Ordered By: Marlon Leon on 06-25-2021 Hemoglobin (Bld) [Mass/Vol] 11.1 g/dL 11.8-15.4 [facility] Blood leukocytes automated c ount (number/volume)Ordered By: Marlon Leon on 06-25-2021 WBC (Bld) [#/Vol] 10.5 10*3/uL 4.5-11.0 [facility] Complete Blood Count Auto Di ffon 06-25-2021 Basophils (Bld) [#/Vol] 0.0 10*3/uL Normal 0.0-0.2 [facility] Comment on above: Result Comment: PERF ORMED BY: [facility] [address] [place] [address] PATHOLOGIST JOY OPERATOR NARGIS CLEMENS M.D. Performed By: #### G LULS #### Point of Care testing , Basophils/100 WBC (Bld) 0.3 % Normal . [facility] Comment on above: Performed By: #### G LULS #### Point of Care testing , Eosinophils (Bld) [#/Vol] 0.0 10*3/uL Normal 0.0-0.45 [facility] Comment on above: Performed By: #### G LULS #### Point of Care testing , Eosinophils/100 WBC (Bld) 0.0 % Normal . [facility] Comment on above: Performed By: #### G LULS #### Point of Care testing , Erythrocyte distribution width (RBC) [Ratio] 12.7 % Normal 11.9-15.3 [facility] Comment on above: Performed By: #### G LULS #### Point of Care testing , Hematocrit (Bld) [Volume fraction] 32.7 % Low 34.0-46.4 [facility] Comment on above: Performed By: #### G LULS #### Point of Care testing , Hemoglobin (Bld) [Mass/Vol] 11.1 g/dL Low 11.8-15.4 [facility] Comment on above: Performed By: #### G LULS #### Point of Care testing , Lymphocytes (Bld) [#/Vol] 0.4 10*3/uL Low 1.00-4.8 [facility] Comment on above: Performed By: #### G LULS #### Point of Care testing , Lymphocytes/100 WBC (Bld) 4.3 % Normal . [facility] Comment on above: Performed By: #### G LULS #### Point of Care testing , MCH (RBC) [Entitic mass] 31.3 pg Normal 24.7-34.3 [facility] Comment on above: Performed By: #### G ROLANDOLS #### Point of Care testing , MCV (RBC) [Entitic vol] 92.1 fL Normal 80-100 [facility] Comment on above: Performed By: #### G LULS #### Point of Care testing , Mean Corpuscular HGB Conc 34.0 g/dL Normal 32.0-35.0 [facility] Comment on above: Performed By: #### G ROLANDOLS #### Point of Care testing , Monocytes (Bld) [#/Vol] 0.5 10*3/uL Normal 0.0-0.8 [facility] Comment on above: Performed By: #### G LULS #### Point of Care testing , Monocytes/100 WBC (Bld) 4.5 % Normal . [facility] Comment on above: Performed By: #### G ROLANDOLS #### Point of Care testing , Neutrophils (Bld) [#/Vol] 9.6 10*3/uL High 1.8-7.7 [facility] Comment on above: Performed By: #### G LULS #### Point of Care testing , Neutrophils/100 WBC (Bld) 90.9 % Normal . [facility] Comment on above: Performed By: #### G SHANNAN #### Point of Care testing , Nucleated RBC/100 WBC (Bld) [Ratio] 0.0 % Normal 0-0.5 [facility] Comment on above: Performed By: #### G ROLANDOLS #### Point of Care testing , Platelet mean volume (Bld) [Entitic vol] 9.0 fL Normal 6.3-10.7 [facility] Comment on above: Performed By: #### G LULS #### Point of Care testing , Platelets (Bld) [#/Vol] 205 10*3/uL Normal 150-450 [facility] Comment on above: Performed By: #### G SHANNAN #### Point of Care testing , RBC (Bld) [#/Vol] 3.55 10*6/uL Low 3.60-5.00 [facility] Comment on above: Performed By: #### G SHANNAN #### Point of Care testing , WBC (Bld) [#/Vol] 10.5 10*3/uL Normal 4.5-11.0 [facility] Comment on above: Performed By: #### G SHANNAN #### Point of Care testing , ECG 12 lead ECGon 06-25-2021 ECG 12 lead ECG [facility] [place] [address] Electrocardiograph Report Signed Patient: Elif Turner MR#: [id number] : 1945 Acct:[id number] Age/Sex: 75 / F ADM Date: 06/24/21 Loc: Room: [address] [place] [address] Type: DIS IN Attending Dr: Rusty Amor [...] are now present Confirmed by SANG BARRIOS [facility], WIL ([id number]) on 06/25/2021 11:01:31 AM Referred By: Electronically Signed By:WIL DOMÍNGUEZ MD [facility] Transcribed By: MUS Signed By Wil Domínguez MD, [facility] 06/25/21 1101 Normal [facility] Eosinophils Auto (Bld) [#/Vo l]Ordered By: Marlon Leon on 06-25-2021 Eosinophils (Bld) [#/Vol] 0.0 10*3/uL 0.0-0.45 [facility] Eosinophils/100 WBC Auto (Bl d)Ordered By: Marlon Leon on 06-25-2021 Eosinophils/100 WBC (Bld) 0.0 % [facility] Erythrocyte distribution wid th Auto (RBC) [Ratio]Ordered By: Marlon Leon on 06-25-2021 Erythrocyte distribution width (RBC) [Ratio] 12.7 % 11.9-15.3 [facility] Glucose Glucometer (BldC) [M ass/Vol]Ordered By: Rusty Amor on 06-25-2021 Glucose [Mass/Vol] 227 mg/dL [facility] Comment on above: Random Glucose Refer ence Range is dependent on time and content of last meal. Glucose of more than 200 mg/dL in a nonstressed, ambulatory subject supports the diagnosis of Diabetes Mellitus. Glucose Poct Glucometerson 0 06-25-2021 Glucose [Mass/Vol] 227 mg/dL Normal [facility] Comment on above: Result Comment: [place] Glucose Reference Range is dependent on time and content of last meal. Glucose of more than 200 mg/dL in a nonstressed, ambulatory subject supports the diagnosis of Diabetes Mellitus. PERFORMED BY: [place] [address] PATHOLOGIST JOY OPERATOR NARGIS CLEMENS M.D. Performed By: #### P TT #### [address] Glucose [Mass/Vol] 184 mg/dL Normal [facility] Comment on above: Result Comment: [place] Glucose Reference Range is dependent on time and content of last meal. Glucose of more than 200 mg/dL in a nonstressed, ambulatory subject supports the diagnosis of Diabetes Mellitus. PERFORMED BY: [place] [address] PATHOLOGIST JOY OPERATOR NARGIS CLEMENS M.D. Performed By: #### P TT #### [address] Glucose [Mass/Vol] 294 mg/dL Normal [facility] Comment on above: Result Comment: [facility] Glucose Reference Range is dependent on time and content of last meal. Glucose of more than 200 mg/dL in a nonstressed, ambulatory subject supports the diagnosis of Diabetes Mellitus. PERFORMED BY: [place] [address] PATHOLOGIST JOY OPERATOR NARGIS CLEMENS M.D. Performed By: #### G LULS #### Point of Care testing , Hematocrit Auto (Bld) [Volum e fraction]Ordered By: Marlon Leon on 06-25-2021 Hematocrit (Bld) [Volume fraction] 32.7 % 34.0-46.4 [facility] Laboratory - CoagulationOrde red By: Marlon Leon on 06-25-2021 PT Coag (PPP) [Time] 11.5 s 9.0-12.9 [facility] Laboratory - Hematology and Cell countsOrdered By: Marlon Leon on 06-25-2021 Nucleated RBC/100 WBC (Bld) [Ratio] 0.0 % 0-0.5 [facility] Lymphocytes Auto (Bld) [#/Vo l]Ordered By: Marlon Leon on 06-25-2021 Lymphocytes (Bld) [#/Vol] 0.4 10*3/uL 1.00-4.8 [facility] Lymphocytes/100 WBC Auto (Bl d)Ordered By: Marlon Leon on 06-25-2021 Lymphocytes/100 WBC (Bld) 4.3 % [facility] MCH Auto (RBC) [Entitic mass ]Ordered By: Marlon Leon on 06-25-2021 MCH (RBC) [Entitic mass] 31.3 pg 24.7-34.3 [facility] MCHC Auto (RBC) [Mass/Vol]Or dered By: Marlon Leon on 06-25-2021 MCHC (RBC) [Mass/Vol] 34.0 g/dL 32.0-35.0 [facility] MCV Auto (RBC) [Entitic vol] Ordered By: Marlon Leon on 06-25-2021 MCV (RBC) [Entitic vol] 92.1 fL 80-100 [facility] Monocytes Auto (Bld) [#/Vol] Ordered By: Marlon Leon on 06-25-2021 Monocytes (Bld) [#/Vol] 0.5 10*3/uL 0.0-0.8 [facility] Monocytes/100 WBC Auto (Bld) Ordered By: Marlon Leon on 06-25-2021 Monocytes/100 WBC (Bld) 4.5 % [facility] Neutrophils Auto (Bld) [#/Vo l]Ordered By: Marlon Leon on 06-25-2021 Neutrophils (Bld) [#/Vol] 9.6 10*3/uL 1.8-7.7 [facility] Neutrophils/100 WBC Auto (Bl d)Ordered By: Marlon Leon on 06-25-2021 Neutrophils/100 WBC (Bld) 90.9 % [facility] Partial Thromboplastin Timeo n 06-25-2021 aPTT Coag (Bld) [Time] 24.8 s Low 25.1-36.5 [facility] Comment on above: Result Comment: PERF ORMED BY: [facility] [address] [place] [address] PATHOLOGIST JOY OPERATOR NARGIS CLEMENS M.D. Performed By: #### G SHANNAN #### Point of Care testing , Platelet mean volume Auto (B ld) [Entitic vol]Ordered By: Marlon Leon on 06-25-2021 Platelet mean volume (Bld) [Entitic vol] 9.0 fL 6.3-10.7 [facility] Platelet poor plasma interna tional normalized ratio (INR) by coagulation assay (relatOrdered By: Marlon Leon on 06-25-2021 INR Coag (PPP) [Relative time] 1.0 {INR} [facility] Comment on above: INR Therapeutic Rang e [...] 06-25-2021 Platelets (Bld) [#/Vol] 205 10*3/uL 150-450 [facility] Progress Noteson 06-25-2021 Technical Producer Authentication Interface Message Text EMERGENCY TRIAGE, TREAT AND TRANSPORT (ET3) DOCUMENTATION OF TELEHEALTH VISIT Date / Time: 06/23/20211929 Name: Elif Turner : 1945 SSN: (Not on file) EMS Agency: [facility] [x] Verbal consent obtained [] Implied [...] Completed by: Andreas Freitas MD Normal [employer] Prothrombin Time INRon 06-25 INR Coag (PPP) [Relative time] 1.0 {INR} Normal [facility] Comment on above: Result Comment: INR Therapeutic [...] Coag (PPP) [Time] 11.5 s Normal 9.0-12.9 [facility] Comment on above: Performed By: #### G LULS #### Point of Care testing , RBC Auto (Bld) [#/Vol]Ordere d By: Marlon Leon on 06-25-2021 RBC (Bld) [#/Vol] 3.55 10*6/uL 3.60-5.00 [facility] Troponin I High Sensitivityo n 06-25-2021 Troponin I High Sensitivity 735 pg/mL Off scale high 0-15 [facility] Comment on above: Result Comment: Crit ical value result called at 0638 on 06/25/21 PERFORMED BY: [facility] [address] [place] [address] PATHOLOGIST JOY OPERATOR NARGIS CLEMENS M.D. Performed By: #### P TT #### [facility] [address] [id number] [facility] Troponin I.cardiac [Mass/vol ume] in Serum or Plasma by High sensitivity methodOrdered By: Gen Bolivar on 06-25-2021 Troponin I.cardiac High sensitivity method [Mass/Vol] 735 pg/mL 0-15 [facility] Comment on above: Critical value result called at 0638 on 06/25/21 A1C with Estimated Average Chitra pang 06-24-2021 Glucose [Mass/Vol] 160 mg/dL Normal [facility] Comment on above: Result Comment: PERF ORMED BY: [facility] [address] [facility] [place] [address] PATHOLOGIST JOY OPERATOR NARGIS CLEMENS M.D. Performed By: #### G LULS #### Point of Care testing , HbA1c (Bld) [Mass fraction] 7.2 % High 4.3-5.6 [facility] Comment on above: Result Comment: Incr eased risk for diabetes: 5.7 - 6.4 diabetes: >6.4 glycemic control for adults with diabetes: <7.0 Performed By: #### G LULS #### Point of Care testing , Albumin [Mass/volume] in Ser um or PlasmaOrdered By: Marlon Leon on 06-24-2021 Albumin [Mass/Vol] 3.1 g/dL 3.2-5.5 [facility] Cholesterol [Mass/volume] in Serum or PlasmaOrdered By: Marlon Leon on 06-24-2021 Cholesterol [Mass/Vol] 128 mg/dL 140-200 [facility] Comment on above: Chol less than 200 m g/dl low risk Chol 201-239 mg/dl borderline risk Chol 240 mg/dl and greater high risk Cholesterol in LDL Calc [Mas s/Vol]Ordered By: Marlon Leon on 06-24-2021 Cholesterol in LDL [Mass/Vol] 56 mg/dL 0-100 [facility] Comment on above: LDL ATP III CLASSIFI CATION LDL less than 100 mg/dL Optimal LDL 100-129 mg/dL Near or above optimal LDL 130-159 mg/dL Borderline high LDL 160-189 mg/dL High LDL greater than 189 mg/dL Very high Cholesterol in VLDL Calc [Ma ss/Vol]Ordered By: Marlon Leon on 06-24-2021 Cholesterol in VLDL [Mass/Vol] 13 mg/dL [facility] Complete Blood Count Auto Di ffon 06-24-2021 Basophils (Bld) [#/Vol] 0.1 10*3/uL Normal 0.0-0.2 [facility] Comment on above: Result Comment: PERF ORMED BY: [place] [address] PATHOLOGIST JOY OPERATOR NARGIS CLEMENS M.D. Performed By: #### P TT #### [address] Basophils/100 WBC (Bld) 0.8 % Normal . [facility] Comment on above: Performed By: #### P TT #### [address] Eosinophils (Bld) [#/Vol] 0.2 10*3/uL Normal 0.0-0.45 [facility] Comment on above: Performed By: #### P TT #### [address] Eosinophils/100 WBC (Bld) 3.2 % Normal . [facility] Comment on above: Performed By: #### P TT #### [address] Erythrocyte distribution width (RBC) [Ratio] 12.7 % Normal 11.9-15.3 [facility] Comment on above: Performed By: #### P TT #### [address] Hematocrit (Bld) [Volume fraction] 30.5 % Low 34.0-46.4 [facility] Comment on above: Performed By: #### P TT #### [address] Hemoglobin (Bld) [Mass/Vol] 10.4 g/dL Low 11.8-15.4 [facility] Comment on above: Performed By: #### P TT #### [address] Lymphocytes (Bld) [#/Vol] 1.8 10*3/uL Normal 1.00-4.8 [facility] Comment on above: Performed By: #### P TT #### [address] Lymphocytes/100 WBC (Bld) 27.4 % Normal . [facility] Comment on above: Performed By: #### P TT #### [address] MCH (RBC) [Entitic mass] 31.3 pg Normal 24.7-34.3 [facility] Comment on above: Performed By: #### P TT #### [address] MCV (RBC) [Entitic vol] 92.0 fL Normal 80-100 [facility] Comment on above: Performed By: #### P TT #### [address] Mean Corpuscular HGB Conc 34.1 g/dL Normal 32.0-35.0 [facility] Comment on above: Performed By: #### P TT #### [address] Monocytes (Bld) [#/Vol] 0.6 10*3/uL Normal 0.0-0.8 [facility] Comment on above: Performed By: #### P TT #### [address] Monocytes/100 WBC (Bld) 8.9 % Normal . [facility] Comment on above: Performed By: #### P TT #### [place] [address] [place] Neutrophils (Bld) [#/Vol] 3.8 10*3/uL Normal 1.8-7.7 [facility] Comment on above: Performed By: #### P TT #### [place] [address] [place] Neutrophils/100 WBC (Bld) 59.7 % Normal . [facility] Comment on above: Performed By: #### P TT #### [address] Nucleated RBC/100 WBC (Bld) [Ratio] 0.0 % Normal 0-0.5 [facility] Comment on above: Performed By: #### P TT #### [address] Platelet mean volume (Bld) [Entitic vol] 8.4 fL Normal 6.3-10.7 [facility] Comment on above: Performed By: #### P TT #### [address] Platelets (Bld) [#/Vol] 191 10*3/uL Normal 150-450 [facility] Comment on above: Performed By: #### P TT #### [address] RBC (Bld) [#/Vol] 3.31 10*6/uL Low 3.60-5.00 [facility] Comment on above: Performed By: #### P TT #### [address] WBC (Bld) [#/Vol] 6.4 10*3/uL Normal 4.5-11.0 [facility] Comment on above: Performed By: #### P TT #### [address] Comprehensive Metabolic Pane hailey 06-24-2021 Albumin [Mass/Vol] 3.1 g/dL Low 3.2-5.5 [facility] Comment on above: Performed By: #### H S TROP, PT, PTT, CMP, PHOS, MG, LIPID #### [address] Albumin/Globulin [Mass ratio] 1.2 {ratio} Normal [facility] Comment on above: Performed By: #### H S TROP, PT, PTT, CMP, PHOS, MG, LIPID #### [facility] [address] [place] [address] ALP [Catalytic activity/Vol] 57 U/L Normal 32-92 [facility] Comment on above: Performed By: #### H S TROP, PT, PTT, CMP, PHOS, MG, LIPID #### [address] ALT [Catalytic activity/Vol] 25 U/L Normal 10-60 [facility] Comment on above: Performed By: #### H S TROP, PT, PTT, CMP, PHOS, MG, LIPID #### [facility] [address] [place] [address] AST [Catalytic activity/Vol] 20 U/L Normal 10-42 [facility] Comment on above: Performed By: #### H S TROP, PT, PTT, CMP, PHOS, MG, LIPID #### [facility] [address] [place] [address] Bilirubin [Mass/Vol] 0.5 mg/dL Normal 0.3-1.2 [facility] Comment on above: Performed By: #### H S TROP, PT, PTT, CMP, PHOS, MG, LIPID #### [address] Calcium [Mass/Vol] 9.1 mg/dL Normal 8.2-10.2 [facility] Comment on above: Performed By: #### H S TROP, PT, PTT, CMP, PHOS, MG, LIPID #### [facility] [address] [place] [address] Chloride [Moles/Vol] 108 mmol/L Normal 95-114 [facility] Comment on above: Performed By: #### H S TROP, PT, PTT, CMP, PHOS, MG, LIPID #### [address] CO2 [Moles/Vol] 25.1 mmol/L Normal 22.0-30.0 [facility] Comment on above: Performed By: #### H S TROP, PT, PTT, CMP, PHOS, MG, LIPID #### [address] [place] [address] [place] Creatinine [Mass/Vol] 1.64 mg/dL High 0.44-1.03 [facility] Comment on above: Performed By: #### H S TROP, PT, PTT, CMP, PHOS, MG, LIPID #### [facility] [address] Creatinine Clr Calc Pharmacy 33.62 [facility] Comment on above: Performed By: #### H S TROP, PT, PTT, CMP, PHOS, MG, LIPID #### [facility] [address] Estimated GFR ( Cathryn 37 [facility] Comment on above: Result Comment: GFR estimated reference range: According to KDOQI guidelines, <60 ml/min/1.73m2 is sufficient to diagnose a patient with chronic kidney disease. Performed By: #### H S TROP, PT, PTT, CMP, PHOS, MG, LIPID #### [address] Estimated GFR (Non- Am 31 [facility] Comment on above: Performed By: #### H S TROP, PT, PTT, CMP, PHOS, MG, LIPID #### [address] Globulin (S) [Mass/Vol] 2.6 g/dL [facility] Comment on above: Performed By: #### H S TROP, PT, PTT, CMP, PHOS, MG, LIPID #### [address] Glucose [Mass/Vol] 65 mg/dL Low 70-100 [facility] Comment on above: Result Comment: [place] Glucose Reference Range is dependent on time and content of last meal. Glucose of more than 200 mg/dL in a nonstressed, ambulatory subject supports the diagnosis of Diabetes Mellitus. ADA recommended reference range Performed By: #### H S TROP, PT, PTT, CMP, PHOS, MG, LIPID #### [address] Potassium [Moles/Vol] 4.1 mmol/L Normal 3.5-5.1 [facility] Comment on above: Performed By: #### H S TROP, PT, PTT, CMP, PHOS, MG, LIPID #### [facility] [address] Protein [Mass/Vol] 5.7 g/dL Low 6.1-7.9 [facility] Comment on above: Performed By: #### H S TROP, PT, PTT, CMP, PHOS, MG, LIPID #### [facility] [address] Sodium [Moles/Vol] 140 mmol/L Normal 136-146 [facility] Comment on above: Performed By: #### H S TROP, PT, PTT, CMP, PHOS, MG, LIPID #### [facility] [address] Urea nitrogen [Mass/Vol] 27 mg/dL High 9-23 [facility] Comment on above: Performed By: #### H S TROP, PT, PTT, CMP, PHOS, MG, LIPID #### [facility] [address] [place] [address] [place] Creatinine and Glomerular fi ltration rate.predicted panel (S/P/Bld)Ordered By: Marlon Leon on 06-24-2021 Creatinine [Mass/Vol] 1.64 mg/dL 0.44-1.03 [facility] ECG 12 lead ECGon 06-24-2021 ECG 12 lead ECG [facility] [place] [address] Electrocardiograph Report Signed Patient: Elif Turner MR#: [id number] : 1945 Acct:[id number] Age/Sex: 75 / F ADM Date: 06/24/21 Loc: Room: [address] [place] [address] Type: DIS IN Attending Dr: Rusty Amor [...] Referred By: Electronically Signed By:WIL DOMÍNGUEZ MD [facility] Transcribed By: MUS Signed By Wil Domínguez MD, FACC 06/25/21 1101 [facility] ECG 12 lead ECG [place] [id number] Electrocardiograph Report Signed Patient: Elif Turner MR#: [id number] : 1945 Acct:[id number] Age/Sex: 75 / F ADM Date: 06/24/21 Loc: Room: [address] [place] [address] Type: DIS IN Attending Dr: Rusty Amor [...] By Wil Domínguez MD, FACC 06/24/21 1001 [facility] ECH echo transthoracicon ECH echo transthoracic [facility] Main [address] [address] Echocardiogram Signed Patient: Elif Turner MR#: [id number] : 1945 Acct:[id number] Age/Sex: 75 / F ADM Date: 06/24/21 Loc: 4 Room: [address] [place] [address] Type: DIS IN Attending Dr: Rusty Amor MD Ordering Provider: Marlon Leon DO, RES Date of Service: 06/24/2108/10/602 ECH/ECH echo transthoracic: NSTEMI Copies to: Marlon Leon DO, RES Wil Domínguez MD, [facility] A : 1945 Gender: Female (MM/DD/YYYY) [...] Frazier. : : MD SANG, : : [facility] : : : : on: 06/24/2021, 11:11 : : AM : : : Transcribed By: SCAnita Performed At: 06/24/21 0944 Signed By: Wil Domínguez MD, [facility] 06/24/21 1111 Normal [facility] Estimated glomerular filtrat ion rate (GFR) non- AmericanOrdered By: Marlon Leon on 06-24-2021 GFR/1.73 sq M.predicted among non-blacks MDRD (S/P/Bld) [Vol rate/Area] 31 mL/Min [facility] Globulin Calc (S) [Mass/Vol] Ordered By: Marlon Leon on 06-24-2021 Globulin (S) [Mass/Vol] 2.6 g/dL [facility] Glucose Poct Glucometerson 0 06-24-2021 Glucose [Mass/Vol] 322 mg/dL Normal [facility] Comment on above: Result Comment: [place] Glucose Reference Range is dependent on time and content of last meal. Glucose of more than 200 mg/dL in a nonstressed, ambulatory subject supports the diagnosis of Diabetes Mellitus. PERFORMED BY: [place] [address] PATHOLOGIST JOY OPERATOR NARGIS CLEMENS M.D. Performed By: #### G LULS #### Point of Care testing , Commemt1 Glu2: Cleaned Meter Normal [facility] Comment on above: Result Comment: PERF ORMED BY: [facility] [address] [facility] [address] PATHOLOGIST JOY OPERATOR NARGIS CLEMENS M.D. Performed By: #### G LULS #### Point of Care testing , Glucose [Mass/Vol] 87 mg/dL Normal [facility] Comment on above: Result Comment: [place] om Glucose Reference Range is dependent on time and content of last meal. Glucose of more than 200 mg/dL in a nonstressed, ambulatory subject supports the diagnosis of Diabetes Mellitus. Performed By: #### G LULS #### Point of Care testing , Glucose [Mass/Vol] 139 mg/dL Normal [facility] Comment on above: Result Comment: [facility] Glucose Reference Range is dependent on time and content of last meal. Glucose of more than 200 mg/dL in a nonstressed, ambulatory subject supports the diagnosis of Diabetes Mellitus. PERFORMED BY: [place] [address] PATHOLOGIST JOY OPERATOR NARGIS CLEMENS M.D. Performed By: #### P TT #### [facility] [address] [place] [address] Glucose mean value [Mass/vol ume] in Blood Estimated from glycated hemoglobinOrdered By: Marlon Leon on 06-24-2021 Average glucose Estimated from glycated hemoglobin (Bld) [Mass/Vol] 160 mg/dL [facility] Hemoglobin A1c percentageOrd ered By: Marlon Leon on 06-24-2021 HbA1c (Bld) [Mass fraction] 7.2 % 4.3-5.6 [facility] Comment on above: Increased risk for d iabetes: 5.7 - 6.4 diabetes: >6.4 glycemic control for adults with diabetes: <7.0 Laboratory - Chemistry and C hemistry - challengeOrdered By: Marlon Leon on 06-24-2021 Magnesium [Mass/Vol] 2.4 mg/dL 1.6-2.6 [facility] Lipid Panelon 06-24-2021 Cholesterol [Mass/Vol] 128 mg/dL Low 140-200 [facility] Comment on above: Result Comment: Chol less than 200 mg/dl low risk Chol 201-239 mg/dl borderline risk Chol 240 mg/dl and greater high risk Performed By: #### H S TROP, PT, PTT, CMP, PHOS, MG, LIPID #### [facility] [address] [place] [address] Cholesterol in HDL [Mass/Vol] 58 mg/dL Normal 35-85 [facility] Comment on above: Result Comment: HDL CHOL ATP-III CLASSIFICATION Cardiovascular Risk HDL > or equal to 60 mg/dL LOW HDL < 40 mg/dL HIGH Performed By: #### H S TROP, PT, PTT, CMP, PHOS, MG, LIPID #### [facility] [address] Cholesterol.total/Ch olesterol in HDL [Mass ratio] 2.2 {ratio} Normal <5.0 [facility] Comment on above: Result Comment: PERF ORMED BY: [facility] [address] [place] [address] PATHOLOGIST JOY OPERATOR NARGIS CLEMENS M.D. Performed By: #### H S TROP, PT, PTT, CMP, PHOS, MG, LIPID #### [facility] [address] LDL Cholesterol,Calculat ed 56 mg/dL Normal 0-100 [facility] Comment on above: Result Comment: LDL ATP III CLASSIFICATION LDL less than 100 mg/dL Optimal LDL 100-129 mg/dL Near or above optimal LDL 130-159 mg/dL Borderline high LDL 160-189 mg/dL High LDL greater than 189 mg/dL Very high Performed By: #### H S TROP, PT, PTT, CMP, PHOS, MG, LIPID #### [facility] [address] Triglyceride w/Reflex 69 mg/dL Normal 35-149 [facility] Comment on above: Result Comment: TRIG ATP III CLASSIFICATION TRIG less than 150 mg/dL Normal TRIG 150-199 mg/dL Borderline high TRIG 200-500 mg/dL High TRIG greater than 500 mg/dL Very high Standard traceable to the Center for Disease Conrtrol and Prevention (CDC) test method. Performed By: #### H S TROP, PT, PTT, CMP, PHOS, MG, LIPID #### [facility] [address] VLDL CHOLESTEROL 13 mg/dL Normal [facility] Comment on above: Performed By: #### H S TROP, PT, PTT, CMP, PHOS, MG, LIPID #### [facility] [address] Magnesiumon 06-24-2021 Magnesium [Mass/Vol] 2.4 mg/dL Normal 1.6-2.6 [facility] Comment on above: Performed By: #### H S TROP, PT, PTT, CMP, PHOS, MG, LIPID #### [facility] [address] No Panel InformationOrdered By: Rusty Amor on 06-24-2021 Bedside Glucose Comment Glu2: cleaned meter [facility] No Panel InformationOrdered By: Marlon Leon on 06-24-2021 Estimated GFR () 37 mL/Min [facility] Comment on above: GFR estimated refere nce range: According to KDOQI guidelines, <60 ml/min/1.73m2 is sufficient to diagnose a patient with chronic kidney disease. Pharmacy Creatinine Clearance (Chem 33.62 [facility] Partial Thromboplastin Timeo n 06-24-2021 aPTT Coag (Bld) [Time] 43.4 s High 25.1-36.5 [facility] Comment on above: Order Comment: draw both at 11:35 with per Shahnaz martin Result Comment: PERF ORMED BY: [place] [address] PATHOLOGIST JOY OPERATOR NARGIS CLEMENS M.D. Performed By: #### P TT #### [address] aPTT Coag (Bld) [Time] 35.4 s Normal 25.1-36.5 [facility] Comment on above: Result Comment: PERF ORMED BY: [place] [address] PATHOLOGIST JOY OPERATOR NARGIS CLEMENS M.D. Performed By: #### H S TROP, PT, PTT, CMP, PHOS, MG, LIPID #### [facility] [address] [place] [address] Phosphate [Mass/volume] in S sybil or PlasmaOrdered By: Marlon Leon on 06-24-2021 Phosphate [Mass/Vol] 3.5 mg/dL 2.5-4.6 [facility] Phosphoruson 06-24-2021 Phosphate [Mass/Vol] 3.5 mg/dL Normal 2.5-4.6 [facility] Comment on above: Performed By: #### H S TROP, PT, PTT, CMP, PHOS, MG, LIPID #### [facility] [address] Protein [Mass/volume] in Ser um or PlasmaOrdered By: Marlon Leon on 06-24-2021 Protein [Mass/Vol] 5.7 g/dL 6.1-7.9 [facility] Prothrombin Time INRon 06-24 INR Coag (PPP) [Relative time] 1.0 {INR} Normal [facility] Comment on above: Result Comment: INR Therapeutic [...] PT, PTT, CMP, PHOS, MG, LIPID #### [facility] [address] PT Coag (PPP) [Time] 11.7 s Normal 9.0-12.9 [facility] Comment on above: Performed By: #### H S TROP, PT, PTT, CMP, PHOS, MG, LIPID #### [facility] [address] Serum or plasma alanine liu otransferase measurement without P-5'-P (enzymatic activiOrdered By: Marlon Leon on 06-24-2021 ALT No additional P-5'-P [Catalytic activity/Vol] 25 U/L 10-60 [facility] Serum or plasma albumin/glob ulin mass ratioOrdered By: Marlon Leon on 06-24-2021 Albumin/Globulin [Mass ratio] 1.2 {ratio} [facility] Serum or plasma alkaline carrie sphatase measurement (enzymatic activity/volume)Ordered By: Marlon Leon on 06-24-2021 ALP [Catalytic activity/Vol] 57 U/L 32-92 [facility] Serum or plasma aspartate am inotransferase measurement (enzymatic activity/volume)Ordered By: Marlon Leon on 06-24-2021 AST [Catalytic activity/Vol] 20 U/L 10-42 [facility] Serum or plasma calcium varsha urement (mass/volume)Ordered By: Marlon Leon on 06-24-2021 Calcium [Mass/Vol] 9.1 mg/dL 8.2-10.2 [facility] Serum or plasma chloride viktoriya surement (moles/volume)Ordered By: Marlon Leon on 06-24-2021 Chloride [Moles/Vol] 108 mmol/L 95-114 [facility] Serum or plasma glucose varsha urement (mass/volume)Ordered By: Marlon Leon on 06-24-2021 Glucose [Mass/Vol] 65 mg/dL 70-100 [facility] Comment on above: ADA recommended refe rence range Random Glucose Reference Range is dependent on time and content of last meal. Glucose of more than 200 mg/dL in a nonstressed, ambulatory subject supports the diagnosis of Diabetes Mellitus. Serum or plasma high density lipoprotein (HDL) cholesterol measurementOrdered By: Marlon Leon on 06-24-2021 Cholesterol in HDL [Mass/Vol] 58 mg/dL 35-85 [facility] Comment on above: HDL CHOL ATP-III CLA SSIFICATION Cardiovascular Risk HDL > or equal to 60 mg/dL LOW HDL < 40 mg/dL HIGH Serum or plasma potassium me asurement (moles/volume)Ordered By: Marlon Leon on 06-24-2021 Potassium [Moles/Vol] 4.1 mmol/L 3.5-5.1 [facility] Serum or plasma sodium measu rement (moles/volume)Ordered By: Marlon Leon on 06-24-2021 Sodium [Moles/Vol] 140 mmol/L 136-146 [facility] Serum or plasma total biliru bin measurement (mass/volume)Ordered By: Marlon Leon on 06-24-2021 Bilirubin [Mass/Vol] 0.5 mg/dL 0.3-1.2 [facility] Serum or plasma total carbon dioxide measurement (moles/volume)Ordered By: Marlon Leon on 06-24-2021 CO2 [Moles/Vol] 25.1 mmol/L 22.0-30.0 [facility] Serum or plasma total choles terol/high density lipoprotein (HDL) cholesterol mass ratOrdered By: Marlon Leon on 06-24-2021 Cholesterol.total/Ch olesterol in HDL [Mass ratio] 2.2 {ratio} [facility] Serum or plasma urea nitroge n measurement (mass/volume)Ordered By: Marlon Leon on 06-24-2021 Urea nitrogen [Mass/Vol] 27 mg/dL 9- [facility] Triglyceride [Mass/volume] i n Serum or PlasmaOrdered By: Marlon Leon on 06-24-2021 Triglyceride [Mass/Vol] 69 mg/dL 35-149 [facility] Comment on above: TRIG ATP III CLASSIF ICATION TRIG less than 150 mg/dL Normal TRIG 150-199 mg/dL Borderline high TRIG 200-500 mg/dL High TRIG greater than 500 mg/dL Very high Standard traceable to the Center for Disease Conrtrol and Prevention (CDC) test method. Troponin I High Sensitivityo n 06-24-2021 Troponin I High Sensitivity 879 pg/mL Off scale high 0-15 [facility] Comment on above: Order Comment: draw both at 11:35 with per Shahnaz martin Result Comment: Crit ical value result called at 1246 on 06/24/21 PERFORMED BY: [place] [address] PATHOLOGIST JOY OPERATOR NARGIS CLEMENS M.D. Performed By: #### G LULS #### Point of Care testing , Troponin I High Sensitivity 1098 pg/mL Off scale high 0-15 [facility] Comment on above: Result Comment: Resu lts called at 0635 on 06/24/21 PERFORMED BY: [place] [address] PATHOLOGIST JOY OPERATOR NARGIS CLEMENS M.D. Performed By: #### H S TROP, PT, PTT, CMP, PHOS, MG, LIPID #### [address] Auth for Release of Medical Recordson 03-01-2021 Auth for Release of Medical Records [id number]#1.00CD:127 Normal [facility] Reminderson 02-16-2021 Reminders - From: Elsa Erickson LPN To: [facility] - Clinical; Sent: 02/16/2021 08:31:52 EST Show up: 01/10/2026 08:00:00 EST Subject: colonoscopy recall Due Date/Time: 02/09/2026 08:00:00 EST Reminder/Recall Patient is due for colonoscopy 02/09/2026 due to history of tubular adenoma. Normal [facility] Ambulatory Clinical Summaryo n 02-15-2021 Ambulatory Clinical Summary {[id number]}CD:61 4368 Normal [facility] General Surgery Office/Clini c Noteon 02-15-2021 General Surgery Office/Clinic Note CD:[id number] TseoqBkc1chur7kWP8rCnLzhkZv NCtbJy0df6zxUM21yv3hNtAgUh8 +GqezRN0LGVqHGQJq tF0xYXGLWdcNTeIfCT7wFpYGFa3 TWBVwCFxHIWnaDR5eLBM1sbthsI 4yYB5oIKWwiPViRn4ec7w1 DxsmTr9kPg2CMi17pCNalZSjREY YV7aztA4lES4vkXLhO0WlTWYjWe 6LVLu4qJeafC8rzqT9Gom3 zHS9Oe72w6jahlEfq3XdDbE3BQw zsWa6rWpmLIswmE1rUrSjBDZFwH 5dtNyqEF1prL9bcvCjhAgq biI+SrrgRVSyBvr6cRZwLC10Z6A mwVfzVxt3tHD3RINgkIGpZRBxaE r6NNYROUBWTADhdIPatCmh eXGmPNNploYqfkS0FxtLPQVmVrH kVei9O5vzVGP+Hcncs4J9Ksf1QR j0DHO6nXjwAOYlz845UXLp xOiuwTaspCKjo87uYINhcMGgTkI sk505JYFyzlM5RPshgNusFvv1vZ ScvTWco9wlpPx2VfDgBQQs WqoUZGIuiLgat8CqIshZJOwva7m zxiSylHqvNWC8r5KwXPsqCSUrDF D9SqAsOK3+CgkJPGNvbCB2 UGigD251TxYrtTAca5vwhNz4ThO 7VILbCd8YZTuoR78fT7AzcQC+Cg l5mSTrYXr+CgkJPHRyPgoJ TGd8hARys9F0iNX5TaFrwzJtn7g 7MYjxHGZ8XoO7SCD6rABkmC6quQ fipybwzB4mUjP+CgkJCTxk fYBlH6czy6Z7DwHkh9WkhMcbrsG mKMXoDwGtn8yjLgbtKOTwqU6mWO J8RgRpPMHocWPhPPVoAS7r xsRnpSBiKKVbSqQbE6Qov91jj0K xOWPZT1fXCdTbHKO9UP8tKiIlED 0iXzljNGYzNmVlLWFlZGYt ULRjOD30IQl7VUSoGINdTLPeEmO 8SlUdu9C7pWB7NwIyCOGzvby7KD RweDsiPjxzcGFuIGNsYXNz CTIjIQQjG2Vjj25tpYMctDF4Lz2 6e4JixzQlgUmzLW6hAk3wkU21OU vzqSC5ZSNrrPN3PHJjgLFh ZTCwe6TdnDbowvkstW4cTMTjpH1 lOyI+X6hqBOExG43mgIfybO32HS 2oeMJpBnhtg8Wwsd9LTLwL MAQsmnUadRKlyx8dYUThoVKbh56 3ZG15IrOtJAooa333HJ77kPlyLH 8oVEGDY6AQZW8TORFLMoRh RUeyGOKcpqHbJ7J4aGmnODHQW6P 2HaS5FX5SIzKyOCSKY8WfZzInKc 9XY0TVGBiZPyD6NlWoQDtn NRPbTFapXTD0QugyRKE0RG79Y1C rJTM7GRIzVCNyZkGeCWq4RjhwRg 4QYFuQZKLzfgPxzPKcde2b ISGnmELtj166KP15dEZmwSJuXZI scV69QUQyRHDacAS0Qu05AuJ3NU V8WX0oOKNgBIKhBMLdCiY2 Oz96PiQlFHWcLJMhNJNuHdUiz8N fb7QyrcQ4kHKtRLDywKaqrgE7wH xnPDy7DapKGGy6K5Tjkl4K CMiUKG7flMF+ZhpXNOl0JEq4SAW xRDPjWNTqJHRwW6Tmo35sIVWsGZ TgGZSdERKiSTCyZHrjl0Wk gBCcPBA5XXn5JRPsigLdk7HoWft sJhSrSPxqYJO8yG0xQ38qZR2mBL 3EKoFrHXDoUdDeOtPhhFD5 Ni5rSGFoLemaTy8rZHdvOQD5WmA kPCMnYm39EUsySNApXJk4CxTkNK V9zObaYDOmZSKfjB7kFqG8 rXe6Tp85q7AhzkFypBXdyj8lMVY lCVE7mI6kMUemnOmjbTA+PHNwYW 0mt6O1uHC2EcUmauGon1Tl G2k3KzSwi1yvGaW2IVp4PZPzM21 zSXZpp938BLRgFJJvxDxnLSbfYd aTOJKKnZPoPaugp7Bopn25 X3IyCA9+BmqQVBa9CPb5NHZxRLN zPSJkZGVtcmNvbnRlbnQiIGRkOm KwqmGpatC6qULlYQIUKLVI JPANL14YVBEbWUXjOlWiTgUsVK2 tBVQ1fKT5VqS5AAOFXVGjZVu8CM FbLSP6Zb6IJnCmRIGCZDPI BydsHVP6NvCkgRC8Zd57TsBzOxZ xXk2pAWB2UOAhGAYwUHDzDV15F0 B0Tmi4RBQwDQShMklHPEr6 EMx4LJYnZBSzDCBzKYZmztIgxrE ybsUtwJNvBJDnxhRyk0YdBdqgOc UhDCmibI9vjJ1eyFpwM3D7 tJtrAYT1x3CnhqlvbGQjDEIjFrF plhIerrY6wVMbWJCMVPNRFWNWP2 7WGXTnOLGzRvAliMo8lTvc TGQwPQorBBKzJXK8BUOnWzdvPyS 0IC93INR6GHMuRcRuOHGhKYYiV7 LwClOrWeB6qFdnicsgXP8r ANvlUL5yW0ToJ9YyAQ61NJWlg66 dNduWYQo1UCt5XOO9eDglMGDmXB GpwX50PHDzdGYrcA13FPUw JJBjptd3TEJkyAbvFb9pPSIfEqZ tuCUggsyhTWFyPCWkOJGpYsQ5EO y0MHXhkRjwDsTzGBC4JvLn k4yxpexsrqogQFYsUXGvZEMpDlW 0LGm3EAfjNXKfoJszQOlhCsBwe1 73EKG0fIpyEkXpj6UmXIs6 GJAqrlSht4CtV0b3WxVqu2CpTDe 9TJSpfDAfIYJil5MhsOkupmwsdl 8vNGvlDgjEQXg3WTb8Letx EK9lsGL6Ux50QQIuQNxxRI16ULN xTHUyUpKxOCKjJg4aHDc4CJnpO6 RjOKGdOltkTF4AUhkFOLos aXY+RrPwMPwynY4yxAMeiWJxZTP tmyIrFy6ueS08YCLjWGXvp6UzWC dQDJsonMpcAH82efMhABUw AQKbXKX1xdmaSDAea1AocHKsLZA aCXDpt0erzm6cZ36wuRQ0oGKkPR QgA5ScQFjdBxOuw5uyuyXb mgUdyqOulCMsMDJtdBsmBCT6g56 vIXOiDNNfjpMzazOgwfT7uRZuMP OnMS1ydG9neTEwRIkzXiks IUi1WcqPIEc0E3Vngk9IIEaLQY1 kaXY+UmlUDSsfPIg5AblEKKb6Q1 Kgkk3QANpXAD9svDB+CgoJ NBr4LCv4MTIrKDNlHQGhCHKxX4N ea73sYDPrLKGxUFOaHQChDOEaGZ oph6FzyCSnIMH6EUt4CSTw xrKfi3ZgGtwbZoAwXIxcYIK3pG4 hN91iAC2iYS9QDvDkHRJcXtPrFx YsnUD5Ae2yIJYiXlCbDA58 UIzzMFP1WRUoJYEpNr5oDwXvARD eAfW3GgPwGRE5wOpqVLEfYIDhtU 3uZmD9mUp1Sh96z9SulsEn sJJlgv0mYHTiEIQ1kN7vNBzxvCw heSI+WIUpTB3jj9F2jBF2WhInvn Ezo2AzU5o4HwXtz1srApB6 RCm2CIQvM85zVPKkf208CKKaDOD eqQcxQCuiTdolm2Bqqampq8IaIM Ulk6BycHXVfGyuCCOeUX5b sNDtTacfw0Lejq3ZUnnKPVctuGL vN3dhb1H5QsKoVZ1pJ42rwBJrsT UaKVZ1V66kR3CpqJ0xVKHX MiXuCWhpj824NZ80bOgfFH0mMT2 PI0JKMFPeKQDaVlNzPmVnOT2iFQ D2sAS2WdYtTrBfUoP0PXL4 KSJrPHOTPm36CbjQBIMOUzX6M7Q 8A8F2NSXwtGH1Cg0mNXcxDSKwFI 8qDaenUTVrRVFnJVO8Zp4x EmRyPSM1OXsqWOQyEcmSAWy7NJs 2IGNsYXNzPSJkZGVtcmNvbnRlbn YaqUAgRlMkWEsxv244KS71 lIudOV9pDFVPJ6TIZG0EKKPZJvM xVIekolXrgNfdDM7hITk3YrX1EF F4OtTpSSM2IZ78xVM7ucLh w5kolo8uFmDtzQV8Ix57CwPqBCT 5RO5jYsPnTSU5VBMoKDRnTN32CM X5XgKnSAI5RWXvHsgQTRg1 JBn4KQFbXXPxAXXwODJmiBPmwqM aaEMlDXR2FZ33dKP6iUU5hGG0gB X1YmFvc7CpiWTojXMyzWU4 Ri95OAv3EYKfPG4vLIZiBQTdFCX lJlhjEU7eRFR5JoSvWlXeRKFbYi lJSIk9EMr3UJEgHGYsQKYm OAYwLBI3XDq8EADrdoGss7WwZhu pCcNfDJsawE5ryP1kyApqB8G5wE xaQPD3d5QoxxxkjCQhOSsb THXmBvBuJmWeDnAzGFJbWm51XYJ mVMMsY9GjERcoYSQfVULvGQJ7Zh 5pZWdwMUearj3rJNZXHO6u p3ktdc3bU31nrGQ2xBMsRAcow7I wsXHaIfgpkSKlGSQxNC0zNBRwlK 7vRQXuuVasKBU3d786VBrj JfhfeZ5dU5JypmUvH5YfgWWehKz zLCBsaWtlbHkgZnJvbSBiaWxlIH NbFzs2oUciqgFnLWGxcdEb Gm3fFDszvNsjl5VxEoLbrMOecIE 3zNV0jEMfKMOeUF3tiBSbfR0gTY WrBBLhoI3vZSMjLYH3DNot hQ1myOZkfCojBIOlwFWinGnwYgR oWCL7ceChxaMxW73fj20bg8d7cF AurVNspI2jV0tvCOywaSA4 sMRogCEcu6BflXHgoU5iYCLjzeW iCHMnIBUeNYpbXTUzbkV9kLJ3NW w0EL8lc4ZjTU5udSWvHKT7 h9KxWJ22A5Ilnv5PCXzGNF9miBE +RotJXUduCKl9ZeyOHHg3S8Qtqt 5NIDySNT7jfUN+CgoJCQk8 YIo0JHAiMOFzTTPiZRHlN4Mtt95 gZGRyZWZyZXNoYWJsZSBkZGluc2 AmbJNjZFW5BQz5EMKmsbAd j8XnNctmTfKpQCamTZQ4iG3oT61 nRB7pGT6XGsGmQHLySFavYtAgpU N5Ki49VzMvMJB9PM9rO7K5 L (more content not included)... Normal [facility] Comment on above: Result Comment: Elec tronically Signed By: ANGEL BARRIOS, Neel Gamboa\Date and Time Signed: 02/15/21 15:08 EST Pathology Noteon 02-14-2021 Pathology Note [id number]#1.00CD:127 Normal [facility] Outside Colonoscopyon 2020 Outside Colonoscopy [id number]#1.00CD:127 [facility] Lab Reportson 02-07-2021 Lab Reports [id number]#1.00CD:127 [facility] Pre-Certification Formon Pre-Certification Form [id number]#1.00CD:127 [facility] Consent for Procedure/Surger yon 01-19-2021 Consent for Procedure/Surgery [id number]#1.00CD:127 [facility] Provider Letter FTon 01-19 Provider Letter [facility] [place] January 19, 2021 AMADOR ABDALLA, [address] [place] [address] Re: ELIF TURNER Date of : 1945 Thank you for your referral of Elif Turner who was seen on consultation on 01/18/2021 for epigastric pain with nausea. An EGD and colonoscopy are planned for further evaluation. I have enclosed my consultation note for your review. I will be happy to follow Elif. Sincerely, Neel Razo MD General Surgery [facility] Ambulatory Clinical Summaryo n 01-18-2021 Ambulatory Clinical Summary {[id number]}CD:61 4368 [facility] Physician Referralon 021 Physician Referral [id number]#1.00CD:127 [facility] Consultation Noteon 12-07-19 21 Consultation Note [id number]#1.00CD:127 [facility] CNOVon 09-19-2017 CNOV Office Visit (VASSFT) -------ELIF TURNER ([id number]) 1945 [facility] Time Provider Department09/19/17 11:30 AM CHIDI MELLO During your visit today, we recorded the following information about you: Pulse Respiration Blood pressure Weight 52/minute 16/minute 115/46 93.4 kg Height 1.626 Margarita Mello MD 09/19/2017 11:59 AM [facility] and [facility] Department of Cardiovascular MedicineOUTPATIENT VISIT DATE September 19, 2017OUTPATIENT VISIT TYPENEWPRIMARY CARE PHYSICIAN:Amador Abdalla MD ([facility])[address], [place] [address]Nnjqw: [phone]: [phone] PHYSICIANChrisyi Wilkins MD[address] [place] [address]OBCVV COMPLAINT:No chief complaint on file.HISTORY OF PRESENT [...] s/p PCI. On ASA, statin.HUMBERTO/PVR performed at [facility], right 0.94, left 1.14.PAST MEDICAL HISTORYDiagnosis [...] Rash- Prochlorperazine UnknownMEDICATIONS:medical supply, miscellaneous (COMMODE PAIL [facility]) USE DIRECTEDVENTOLIN HFA 90 mcg/actuation inhaleramLODIPine (NORVASC) [...] mouth twice daily.ONETOUCH DELICA LANCETS [facility] twice daily. 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] Other Visit Diagnoses:Diabetic peripheral neuropathy associated with type 2 diabetes mellitus ([facility]) [E11.42] PAD (peripheral artery disease) ([facility]) [I73.9]Prescriptions as of 09/19/2017 Sig: COMMODE PAIL [...] to improve.Follow-up and Disposition History RecordedEncounter Number: [id number] Status:Closed by CHIDI MELLO MD on 09/19/17 Normal [facility] PROGRESSon 09-19-2017 Protein mass conc HNO ID: [id number] thor: Chidi Feldman: (none)Author Type: PhysicianType: Progress NotesFiled: 09/19/2017 11:59 AMNote Text:[facility] InstituteSanbornton and [facility] Department of Cardiovascular MedicineOUTPATIENT VISIT DATE September 19, 2017OUTPATIENT VISIT TYPENEWPRIMARY CARE PHYSICIAN:Amador Abdalla MD ([facility])[address] [place], [place] [address]Ucpfi: [phone]: [phone] PHYSICIANChkiah Wilkins MD[address] [place] [address]TBBNH COMPLAINT:No chief complaint on file.HISTORY OF PRESENT ILLNESS:Elif Turner was referred for consultation by Dr. Zach Wilkins.Opinions and recommendations in this consultation will be transmitted backto the referring physician by [facility] notes or via mail.Ms. Turner [...] s/p PCI. On ASA, statin.HUMBERTO/PVR performed at [facility], right 0.94, left 1.14.PAST MEDICAL HISTORYDiagnosis [...] tablet Take 1 tablet by mouth twice daily.MoogiTOUCH DELICA LANCETS 30 gauge misc twice daily. [...] podiatry.Chidi Mello MD Normal [facility] Vital Signs Date Time Vital Sign Value Performing Clinician Facility 06-25-2021 12:15-0400 Body temperature 98.1 [degF] MD Amador Abdalla Work Phone: [facility] 06-25-2021 12:15-0400 Diastolic blood pressure 72 mm[Hg] MD Amador Abdalla Work Phone: [facility] 06-25-2021 12:15-0400 Heart rate 64 /min MD Amador Abdalla Work Phone: [facility] 06-25-2021 12:15-0400 Respiratory rate 18 /min MD Amador Abdalla Work Phone: [facility] 06-25-2021 12:15-0400 SaO2% (BldA) [Mass fraction] 96 % MD Amador Abdalla Work Phone: [facility] 06-25-2021 12:15-0400 Systolic blood pressure 127 mm[Hg] MD Amador Abdalla Work Phone: [facility] 06-25-2021 08:00-0400 Inhaled oxygen flow rate 3 L/min MD Amador Abdalla Work Phone: [facility] 06-25-2021 06:00-0400 Body weight 93.5 kg MD Amador Abdalla Work Phone: [facility] 06-24-2021 04:05-0400 Body height 162.56 cm MD Amador Abdalla Work Phone: [facility] 06-24-2021 04:05-0400 Body mass index (BMI) [Ratio] 34.9 kg/m2 MD Amador Abdalla Work Phone: [facility] 06-23-2021 19:30-0400 Diastolic blood pressure 61 mm[Hg] [facility] 06-23-2021 19:30-0400 Heart rate 80 /min [facility] 06-23-2021 19:30-0400 Respiratory rate 16 /min [facility] 06-23-2021 19:30-0400 SaO2% (BldA) [Mass fraction] 98 % [facility] 06-23-2021 19:30-0400 Systolic blood pressure 132 mm[Hg] [facility] Encounters Encounter Date Encounter Type Care Provider Facility Start: 11-12-2023 End: 11-12-2023 ambulatory AMADOR ABDALLA Not Available Start: 08-20-2023 End: 08-20-2023 ambulatory [facility] Start: 04-26-2023 End: 04-26-2023 ambulatory AMAYA WILKINS Not Available Start: 03-13-2023 End: 03-13-2023 ambulatory AMADOR ABDALLA Not Available Start: 01-31-2023 End: 01-31-2023 ambulatory CHRISTOPHER [facility] Start: 10-12-2022 Rx Renewal Zafar Chavira n DO Work Phone: [facility] [address] DO Work Phone: Start: 08-29-2022 End: 08-29-2022 ambulatory ALFREDO [facility] Start: 07-03-2022 End: 07-04-[address] AMADOR ABDALLA Facility:[facility] Start: 05-26-2022 End: 05-26-[address] AMADOR ABDALLA Facility:[facility] Start: 05-14-2022 End: 05-16-[address] AMADOR ABDALLA Facility:[facility] Start: 05-04-2022 End: 05-05-[address] AMADOR ABDALLA Facility:[facility] Start: 12-01-2021 End: 12-02-[address] AMADOR ABDALLA Facility:[facility] Start: 10-20-2021 Rx Renewal Zafar Readdo mcfadden DO Work Phone: [facility] 250 DO Work Phone: Start: 09-09-2021 End: [...] Start: 06-25-2021 End: 07-29-2021 ambulatory [facility] PROVIDER [facility] Start: 06-24-2021 End: 06-25-2021 Evaluation and management of inpatient Amador Abdalla Facility:[facility] Start: 06-24-2021 End: 06-25-2021 Evaluation and management of inpatient MD Amador Abdalla Work Phone: [facility] [place] [facility] Start: 06-23-2021 End: 06-23-2021 ambulatory [facility] Emergenc y Triage, Treat and Transport Start: 06-23-2021 End: 06-23-2021 Emergency department patient visit [facility] Emergency Triage, Treat and Transport Comment on above: Arrived Start: 11-21-2018 End: 11-24-2018 Patient encounter procedure KELLI HANKINS Facility:[email or web address] Start: 09-19-2017 End: 09-19-2017 Patient encounter CHIDI MELLO [facility] Procedures Date Procedure Procedure Detail Performing Clinician Start: 06-24-2021 CL Iliac/Fem w/LHC MD Karin Abdalla Work Phone: Start: 06-24-2021 CL 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 Start: 07-10-2012 Screening for osteoporosis [facility] Start: 07-10-1997 Measurement of occult blood in single stool specimen [facility] Start: 07-10-1997 Screening for malignant neoplasm of [...] Screening for malignant neoplasm of colon Colonoscopy [facility] Patient Education Coronary Angio plasty (DC) Liraglutide Angina (DC) Drug Eluting Stents [facility] Work Phone: Patient referral [facility] Work Phone: Payers Date Payer Category Payer Medicare [id number] 2021 Self-pay [id number] 1957 Medicaid [id number] 1957 Medicare [id number] 01 [id number] 1957 Unknown [id number] 1945 Unknown [id number] 2.16.8 40.1.218671.3.579.2.647 1945 Unknown [id number] 2.16. 840.1.430919.3.579.2.732 1945 Unknown [id number] 2.16.84 0.1.681939.3.579.2.593 1945 Unknown [id number] 2.16.84 0.1.430571.3.579.2.593 1945 Unknown [id number] 2.16.84 0.1.168217.3.579.2.593 1945 Unknown [id number] 2.16.84 0.1.745719.3.579.2.593 1945 Unknown [id number] 2.16.84 0.1.463659.3.579.2.593 1945 Unknown [id number] 2.16.84 0.1.454077.3.579.2.593 1945 Unknown [id number] 2.16.84 0.1.657206.3.579.2.593 1945 Unknown [id number] 2.16.84 0.1.048607.3.579.2.593 1945 Unknown [id number] 2.16.84 0.1.361662.3.579.2.593 1945 Unknown [id number] 2.16.84 0.1.356319.3.579.2.593 1945 Unknown [id number] 2.16.84 0.1.929900.3.579.2.593 1945 Unknown [id number] 2.16.84 0.1.874860.3.579.2.593 1945 Unknown [id number] 2.16.84 0.1.152553.3.579.2.593 1945 Unknown [id number] 2.16.84 0.1.041434.3.579.2.1259 1945 Unknown [id number] 2.16.84 0.1.806265.3.579.2.1259 1945 Unknown [id number] 2.16.84 0.1.435763.3.579.2.1259 Medicare [id number] Unknown Unknown [id number] 2.16.8 40.1.566815.3.579.2.531 Social History Date Type Detail Facility Tobacco smoking status [facility] [place] Tobacco smoking consumption unknown [facility] Work Phone: Start: 1945 Sex Assigned At Not on file [facility] Start: 06-24-2021 Tobacco smoking status NHIS Never smoked tobacco (finding) [facility] Start: 1945 Sex Assigned At Female F [facility] Goals Date Patient Goal Desired Activity /State Functional Status Date Assessment Result Facility 06-25-2021 Functional status Patient at Baseline [facility] Work Phone: Mental Status Date Assessment Result Facility 06-25-2021 Cognitive function Cognitive Sta tus Patient is Progressing Toward Baseline [facility] Work Phone: Clinical Notes 01-18-2021 to 08-20-2023 Note Date & Type Note Facility 08-20-2023 Note [place] [facility] Subjective Elif Turner is a 78 [...] Problem List Diagnosis Coronary artery disease involving pauma coronary artery of pauma heart without angina pectoris CKD stage 4 [...] dehydration and JAKI, treated by hydration at [facility] and did well. Since then she has been feeling well and has been eating and drinking well and no longer takes trazodone and lasix is 40 mg daily. No chest pain and no dyspnea. Her Cr on 07/09/2017 was 1.96 and down to 1.7 on 07/10/2017. Update 11/16/2017: She is seen in follow up. Most recently she was admitted to [facility] with decompensated diastolic heart failure. She [...] 11/05/2017: Cr 1.55; BUN 55. NT-proBNP 4184 [facility] 11/12/2017: BUN 42, Cr 1.47, K 4.5. Update 01/04/2018: She is seen in follow up. Last visit I saw her after her admission to [facility] with heart failure and she developed [...] Most recently she was admitted to the [facility] and transferred to [facility] due to decompensated diastolic heart failure in the setting of UTI. She underwent right heart catheterization that showed significantly elevated filling pressures and pulmonary hypertension. She underwent diuresis. Her renal function at discharge (more content not included)... [facility] 01-31-2023 Note Cardiovascular Medic ine [facility] SUBJECTIVE Chief Complaint Patient presents with Congestive [...] sinus rhythm at 94 bpm, old inferior TN, comparable to prior ECG. Visit of 07/18/2017: At last visit of 06/20/2017 I had increased lasix from 60 to 80 mg daily. After that she was not eating or drinking after she was started on trazodone. She developed dehydration and JAKI, treated by hydration at [facility] and did well. Since then she has been feeling well and has been eating and drinking well and no longer takes trazodone and lasix is 40 mg daily. No chest pain and no dyspnea. Her Cr on 07/09/2017 was 1.96 and down to 1.7 on 07/10/2017. Update 11/16/2017: She is seen in follow up. Most recently she was admitted to [facility] with decompensated diastolic heart failure. She [...] 11/05/2017: Cr 1.55; BUN 55. NT-proBNP 4184 [facility] 11/12/2017: BUN 42, Cr 1.47, K 4.5. Update 01/04/2018: She is seen in follow up. Last visit I saw her after her admission to [facility] with heart failure and she developed [...] Most recently she was admitted to the [facility] and transferred to [facility] due to decompensated diastolic heart failure in [...] 1.57. BUN 56. (more content not included)... [facility] 01-31-2023 Note Patient here for [...] All other systems reviewed and are negative. [facility] 08-29-2022 Note SUBJECTIVE: Chief complaint: [...] History: Diagnosis Date CHF (congestive heart failure) ([facility]) Chronic kidney disease Coronary artery disease Diabetes mellitus ([facility]) H/O total hysterectomy Heart attack ([facility]) Hyperlipidemia Hypertension Past Surgical History: Procedure Laterality [...] and at bedtime., Disp: , Rfl: HYDROcodone-acetaminophen (Lamar) 5-325 mg tablet, Take 1 tablet by [...] Take 100 mg (more content not included)... [facility] 06-25-2021 Progress note Note Date/Time June 25, 2021 11:18am [facility] [address] [place] [address] Cardiology Progress Note Signed Patient: Elif Turner MR#: [id number] : 1945 Acct:[id number] Age/Sex: 75 / F Adm Date: 2 Loc: Room: [address] [place] [address] Type : ADM IN Attending Dr: Rusty [...] previous stents approximately 7 years ago in [place] details of which are unknown She really routinely follows with cardiology and saw her i o psychologist 3 months ago with no symptoms Comorbidities are noted for diabetes, obesity, hyperlipidemia, chronic kidney disease and essential hypertension Mrs. Turner is doing well today status post PCI to the RCA (SAWMILL MANAGER) done per Dr. Bolivar yesterday. 2 drug-eluting [...] MPV Neut % (Auto) Lymph % (Auto) [place] % (Auto) Eos % (Auto) Baso % (Auto) Neut # (Auto) Lymph # (Auto) [place] # (Auto) Eos # (Auto) Baso # [...] % (Auto) 90.9 Lymph % (Auto) 4.3 [place] % (Auto) 4.5 Eos % (Auto) 0.0 Baso % (Auto) 0.3 Neut # (Auto) 9.6 H Lymph # (Auto) 0.4 L [place] # (Auto) 0.5 Eos # (Auto) 0.0 Baso # (Auto) 0.0 Nucleated RBC % (auto) 0.0 PT INR APTT POC Glucose 322 294 POC Glucose Comment Troponin I High Sens 06/25/21 06/25/21 06/25/21 05:24 05:24 07:51 Corrected WBC Uncorrected WBC Count RBC Hgb Hct MCV MCH MCHC RDW Plt Count MPV Neut % (Auto) Lymph % (Auto) [place] % (Auto) Eos % (Auto) Baso % (Auto) Neut # (Auto) Lymph # (Auto) [place] # (Auto) Eos # (Auto) Baso # [...] days. 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 Code(s): E11.9 - Type 2 diabetes mellitus without complications Status: Acute Plan: Okay to resume oral metformin in 24 hours. Aggressive glycemic control and control of serum insulin levels is recommended. 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 Within the construct of phase 2 monitored cardiac rehabilitation, a minimum 10% total body weight loss is strongly recommended Plan Okay for discharge to home today. Patient may follow-up with her primary i o psychologist in [place] within 10 days. Again, as mentioned above, enrollment in phase2 monitored cardiac rehabilitation is strongly recommended Time spent with patient Time Spent With Patient (min): 30 Documented By: Andrea Marinelli MD 06/25/21 1116 Signed By: <Electronically signed by Andrea Marinelli MD> 06/25/21 1127 [facility] Work Phone: 1(463) 210-202305-07-2022 History of Present illness Narrative* Andreas Freitas MD - 06/25/2021 10:50 AM EDT Images from the original note were not included. EMERGENCY TRIAGE, TREAT AND TRANSPORT (ET3) DOCUMENTATION OF TELEHEALTH VISIT Date / Time: 06/23/20211929 Name: Elif Turner : 1945 SSN: (Not on file) EMS Agency: [facility] [x] Verbal consent obtained [] Implied [...] vomiting, fever. She does have nausea. She due to the chest pain, but the [...] by: Andreas Freitas MD documented in this [id number] Progress note Author Rusty Amor [facility] June 24, 2021 4:36pm Note Date/Time June 24, 2021 3:50pm [facility] [address] [place] [address] Hospitalist Progress Note Signed Patient: Elif Turner MR#: [id number] : 1945 Acct:[id number] Age/Sex: 75 / F Adm Date: 2 Loc: Room: [address] [place] [address] Type : ADM IN Attending Dr: Rusty [...] of care and confirmed it with the resident/student/BILLING CONTROL CLERK. Patient was seen and examined at bedside [...] Dextrose-0.45 % Nacl IV 06/24/21 16:59 .Q10H [facility] Nitroglycerin/Dextrose 50 mg in 250 mls @ 1.5 mls/hr 06/24/21 15:30 Nitroglycerin 50 Mg-*D5w* IV 06/24/22 15:29 .Q24H [facility] Protocol 5 MCG/MIN Insulin Aspart 0 units 06/24/21 08:00 06/24/21 12:10 Insulin Aspart 300 Units/3 Ml Insuln.Pen SUBCUT 06/24/22 07:59 Not Given TID.WM.HS [facility] Protocol Insulin Detemir 10 units 06/24/21 22:00 Insulin Detemir 300 Units/3 Ml Insuln.Pen SUBCUT 06/24/22 21:59 QHS [facility] Lidocaine HCl 10 ml 06/24/21 13:52 Lidocaine [...] Montelukast 10 Mg Tablet PO 06/24/22 21:59 [facility] Nitroglycerin 0.4 mg 06/24/21 05:27 Nitroglycerin 0.4 [...] CKD ?BUN 32 and creatinine 2.05 at [facility] yesterday Continue home medications. PT/OT Full code Rapid COVID-negative at [facility] Documented By: Nick Carr DO, RES 06/24/21 154 7 Signed By: <Electronically signed by DO JOSE DE JESUS Carr> 06/24/21 1633 <Electronically signed by Rusty Amor MD> 06/24/21 1636 [facility] Work Phone: 1(236) 109-536605-06-2022 Consult note Author W Osmel [facility] June 24, 2021 2:02pm Note Date/Time June 24, 2021 12:55p m [facility] [address] [place] [address] Cardiology Consult Note Signed Patient: Elif Turner MR#: [id number] : 1945 Acct:[id number] Age/Sex: 75 / F Adm Date: 2 Loc: 4 Room: [address] [place] [address] Type : ADM IN Attending Dr: Rusty Amor MD Copies to: MD Amador Winston MD W Scott Sheldon, DO~ Cardiology HPI History of Present Illness Consult Date: 06/24/21 Reason for Consult: Non-ST elevation [place] HPI: Ms. Turner is a 75 year [...] previous stents approximately 7 years ago in [place] details of which are unknown She really routinely follows with cardiology and saw her i o psychologist 3 months ago with no symptoms Comorbidities [...] x10E3/uL Lymph # (Auto) 1.8 (1.00-4.8) x10E3/uL [place] # (Auto) 0.6 (0.0-0.8) x10E3/uL Eos # [...] Code(s): I25.10 - Atherosclerotic heart disease of pauma coronary artery without angina pectoris (4) Diabetes: Code(s): E11.9 - Type 2 diabetes mellitus without complications (5) HTN (hypertension): Code(s): I10 - Essential (primary) hypertension Documented By: Gen Bolivar DO 06/24/21 1248 Signed By: <Electronically signed by Gen Bolivar DO> 06/24/21 7601 [facility] Work Phone: 1([phone]) 507-859405-06-2022 Procedure [facility]05-06-2022 Procedure [facility]05-06-2022 History and physical note Author Xander Nam [facility] June 24, 2021 6:14am Note Date/Time June 24, 2021 5:14am [facility] [address] [place] [address] Hospitalist H&P Signed Patient: Elif Turner MR#: [id number] : 1945 Acct:[id number] Age/Sex: 75 / F Adm Date: 2 Loc: 4 Room: [address] [place] [address] Type : ADM IN Attending Dr: Xander [...] type II, fibromyalgia, CKD who [facility] to [facility] yesterdaywith intermittent chest pain that started in the afternoon while she was watching TV with associated shortness of breath. She described this pain as pressure that involved her left chest as well as left breast and axilla. She presented to the [facility] emergency department and blood pressure was 160/71 [...] and 12 units/kg/h. She was transferred to [facility] for cardiac care for NSTEMI. The patient denied fever/chills, N/V, constipation/diarrhea. She does have history of chronic headaches however notes worsening of headache since yesterday. She does take Lasix as well with as needed for pedal edema. On evaluation at [facility], patient continues to endorse resting chest pain however diminished since initial presentation at [facility]. Per RN she was saturating 94% on [...] yesterday afternoon. ?Chest x-ray unremarkable ?EKG at [facility] normal sinus rhythm with no acute ischemia ?At [facility] troponin 162.6 with repeat 658.9. Repeat at [facility] ordered. ?Patient received bolus porcine heparin at 60 units/kg at [facility] with maintenance at 12 units/kg/h. Maintenance will be continued here. ?Coreg initiated at 12.5 mg twice daily. We will hold amlodipine pending cardiology recommendation. ?Continue losartan. ? Hold amlodipine and lasix pending cardiology consult. ?Cardiology consult ?Morphine for severe pain. Target pulse ox greater than 90%. Nitro for worsening chest pain. Received 324 mg aspirin at [facility]. 2. Coronary artery disease ?Status post 2 stents 5 and 7 years ago respectively per patient ?Continue atorvastatin 40 mg and 81 mg aspirin 3. Diabetes ?Hold home metformin and glipizide ?Initiate basal detemir 10 units with sliding scale coverage 4. CKD ?BUN 32 and creatinine 2.05 at [facility] yesterday Continue home medications. PT/OT Full code Rapid COVID-negative at [facility] Attending Provider Attestation Attending Physician Attestation: I personally saw this patient on the day of the encounter, reviewed the history,performed the cruz elements of the exam, formulated the plan of care and confirmed the resident's/tax services intern/medical student's dictation/written note. Documented By: Marlon Leon DO, JOSE DE JESUS 06/24/21 050 4 Signed By: <Electronically signed by DO JOSE DE JESUS Leon> 06/24/21 0537 <Electronically signed by Xander Ortiz MD> 06/24/21 0614 [facility] Work Phone: [phone]) 946-870411-30-2021 NoteChief Complaint consultation for epigastric pain HPI [...] Flonase 0.05 mg/inh nasa (more content not included)...[facility]:Result Comment: Electronically Signed By: ANGEL BARRIOS, Neel Gamboa\Date and Time Signed: 01/18/21 20:28 ESTDischarge summary Author Rusty Amor [facility] June 25, 2021 1:30pm Note Date/Time June 25, 2021 1:30pm [facility] [address] [place] [address] Discharge Summary Signed Patient: Elif Turner MR#: [id number] : 1945 Acct:[id number] Age/Sex: 75 / F Adm Date: 2 Loc: Room: [address] [place] [address]: Rusty Amor MD Copies to: [...] She presented to the emergency department of [facility] on June 24, complaining of chest discomfort. Her troponins were abnormal. She was transferred to our hospital with a diagnosis of non-STEMI. She was taken to the [facility] on June 25, where she underwent coronary [...] W Domingo Bolivar DO s CL PCI SAWMILL MANAGER 1st Vessel RCA BAMBI - W Domingo [...] % (Auto) 90.9, Lymph % (Auto) 4.3, [place] % (Auto) 4.5, Eos % (Auto) 0.0, Baso % (Auto) 0.3, Neut # (Auto) 9.6 H, Lymph # (Auto) 0.4 L, [place] # (Auto)0.5, Eos # (Auto) 0.0, Baso [...] doctor or pharmacist, without first calling the i o psychologist who implanted the stent. If you require [...] weight lifting, stair steppers, etc. until the i o psychologist approves these activities. Check with the i o psychologist on your first follow-up visit. CALL YOUR PHYSICIAN at [phone]: -If bleeding should occur from the catheter insertion site- apply pressure to the site then immediately call us. -Report any fever, redness, drainage, increased swelling, or firmness at the catheter insertion site. Some bruising or slight swelling may be present at thetime of discharge. -Should arm or leg become cold, numb, white, or blue, contact the i o psychologist immediately. -IF you should experience episodes of [...] is recommended. Please call Central Scheduling at [phone] to schedule your appointment.] The attending i o psychologist or [facility] nurse clinician should provide you with specific instructions regarding activity, diet, medications, and further follow up for you. Follow the medication instructions provided on your discharge. If the dosages and instructions on this sheet differ from the dosage and instructions on the bottle, follow the instructions on the bottle. [facility] is not responsible for incorrect prescription information [...] Sunday to schedule follow- up with your Hand Marker. ) Documented By: Rusty Amor MD 06/25/21 1326 Signed By: <Electronically signed by Rusty Amor MD> 06/25/21 1335 [facility] Work Phone: Evaluation note* Diagnosis Chest pain, unspecified type- Primary PND (paroxysmal nocturnal dyspnea) Other dyspnea and respiratory abnormality documented [facility] Diagnosis Onset Date Resolution Status CAD (coronary artery disease) acute Chronic kidney disease acute Depression acute Diabetes acute Fibromyalgia acute GERD (gastroesophageal reflux disease) acute HTN (hypertension) acute NSTEMI (non-ST elevated myocardial infarction) acute [facility] Work Phone: Hospital Discharge instructionsAmbulatory Orders* Initiate [...] doctor or pharmacist, without first calling the i o psychologist who implanted the stent. If you require [...] weight lifting, stair steppers, etc. until the i o psychologist approves these activities. Check with the i o psychologist on your first follow-up visit. CALL YOUR PHYSICIAN at [phone]: -If bleeding should occur from the catheter insertion site- apply pressure to the site then immediately call us. -Report any fever, redness, drainage, increased swelling, or firmness at the catheter insertion site. Some bruising or slight swelling may be present at the time of discharge. -Should arm or leg become cold, numb, white, or blue, contact the i o psychologist immediately. -IF you should experience episodes of [...] is recommended. Please call Central Scheduling at [phone] to schedule your appointment.] The attending i o psychologist or [facility] nurse clinician should provide you with specific instructions regarding activity, diet, medications, and further follow up for you. Follow the medication instructions provided on your discharge. If the dosages and instructions on this sheet differ from the dosage and instructions on the bottle, follow the instructions on the bottle. [facility] is not responsible for incorrect prescription information provided by the patient during their visit. Do not stop your medications without consulting your health care provider. Please take the list with you to your next doctor's appointment. Home Health to manage care: - Full code - PT/OT eval and treat - Routine [facility] signsMer[facility] Work Phone: Summary Purpose Family History No [...] DATE CREATED AUTHOR 09/19/2017 [facility] DATE CREATED AUTHOR AUTHOR'S ORGANIZ ATION 11/23/2019 [facility] DATE CREATED AUTHOR AUTHOR'S ORGANIZ ATION 05/07/[address] [facility] DATE CREATED AUTHOR AUTHOR'S ORGANIZ ATION 07/30/2021 [facility] DATE CREATED AUTHOR AUTHOR'S ORGANIZ ATION 03/25/2022 [facility] DATE CREATED AUTHOR AUTHOR'S ORGANIZ ATION 07/05/2022 [facility] DATE CREATED AUTHOR AUTHOR'S ORGANIZ ATION 08/21/2023 [facility] DATE CREATED AUTHOR AUTHOR'S ORGANIZ ATION 11/14/2023 [facility] EPIC Reason for Visit (unrecogniz [...] BE BASED ON THE PRIMARY CLINICAL RECORDS. [facility] [facility]. provides no warranty or guarantee of the accuracy or completeness of information in this document.
--- OUTSIDE RECORDS SUMMARY | 2023-11-18 12:57 | XMS_ITS | CCD ---
Author Organization [facility] Inform ion Partnership [facility] Care Team Providers Care Sack Cleaning Hand Name Role Phone CHIDI MELLO Unavailable Unavailable SVEN WILKINS Unavailable Unava ilable KELLI HANKINS Admitting Unavailable KELLI HANKINS Attending Unavailable AMADOR ABDALLA Primary Care Unavailable CHIDI LEWIS Referring Unavailable Unavailable Primary Care Provider Unavailromie e MD Amador Abdalla Primary Care Provider [phone] MD Xander Hammer Admit Provider SHAHNAZ Pittman Other Provider Unavailable DO Gen Bolivar Other Provider [phone] MD Wil Doímnguez Other Provider MD Zafar Luu Other Provider MD Isabel Beckwith Other Provider [phone] MD Rufus Sauceda Other Provider ARIEL Resendiz [...] DR AMADOR Arcos Admitting Unavailable NADERER, DR AMAODR Arcos Primary Care Unavailable YUSRA, ELY Consulting [...] Translations: [DYE] Substance Allergy 06-03-19 [facility] Repository cyclobenzaprine (1 source) cyclobenzaprine; Translations: [CYCLOBENZAPRINE] Drug Allergy 12-12-19 13 [facility] Repository Doxycycline (1 source) Doxycycline; Translations: [DOXYCYCLINE] Drug Allergy 12-22-19 [facility] Repository exenatide (1 source) exenatide; Translations: [EXENATIDE] Drug Allergy 12-28-19 13 [facility] Repository Lincosamides (antibiotic) (1 source) Clindamycin; Translations: [CLINDAMYCIN] Drug Allergy 05-27-19 [facility] Repository Opioid Agonists (1 source) Codeine; Translations: [CODEINE] Drug Allergy 12-28-19 [facility] Repository Penicillins (antibiotic) (1 source) Penicillins; Translations: [PENICILLINS] Drug Allergy 12-12-19 13 [facility] Repository Prochlorperazine (1 source) Prochlorperazine; Translations: [PROCHLORPERAZINE] Drug Allergy 12-12-19 13 [facility] Repository Serotonin Reuptake Inhibitors (SSRIs) (1 source) traZODone; Translations: [TRAZODONE] Drug Allergy 12-19-19 [facility] Repository Sucralfate (1 source) Sucralfate; Translations: [SUCRALFATE] Drug Allergy 12-22-19 [facility] Repository Ticagrelor (1 source) Ticagrelor; Translations: [TICAGRELOR] Drug Allergy 06-03-19 [facility] Repository Unclassified (1 source) OTHER; Translations: [OTHER] Propensity to adverse reactions (disorder) 12-12-19 13 [facility] Repository (4 sources) Clindamycin Drug Allergy 04-05-19 16 Difficulty Swallowing [facility] Repository (1 source) Codeine Drug Allergy 12-31-19 09 [facility] Rep[facility] (1 source) cyclobenzaprine Drug Allergy 12-31-19 09 [facility] Rep[facility] (3 sources) exenatide Drug Allergy 08-26-19 17 [facility] Rep[facility] (3 sources) Penicillins Drug allergy (disorder) 12-31-19 09 Itching [facility] Repository (1 source) Prochlorperazine Drug Allergy 12-31-19 09 [facility] Rep[facility] (2 sources) Iodinated Contrast Media - IV Dye Drug allergy (disorder) 12-31-19 09 [facility] Rep[facility] (1 source) trival; Translations: [trival] Propensity to adverse reactions (disorder) 12-17-19 13 [facility] Repository (4 sources) Amoxicillin; Translations: [amoxicillin] Drug Allergy 06-25-19 Unknown Reaction [facility] (4 sources) cyclobenzaprine; Translations: [cyclobenzaprine] Drug Allergy 06-25-19 Itching [facility] (5 sources) Doxycycline; Translations: [doxycycline] Drug Allergy 06-25-19 Unknown Reaction [facility] (4 sources) exenatide; Translations: [exenatide] Drug Allergy 06-25-19 Rash [facility] (4 sources) Prochlorperazine; Translations: [prochlorperazine] Drug Allergy 05-06-20 22 Cramping of the Muscles [facility] (5 sources) Sucralfate; Translations: [sucralfate] Drug Allergy 06-25-19 Nausea [facility] (6 sources) traZODone; Translations: [trazodone] Drug Allergy 06-25-19 22 Nausea [facility] (3 sources) Iodinated Contrast Media; Translations: [Iodinated Contrast Media] Allergy to substance 02-07-20 14 Itching [facility] (2 sources) Clindamycin; Translations: [clindamycin] [facility] ([facility] sources) Penicillins; Translations: [Penicillins] Allergy [facility] drug [facility]) [facility] [place] [facility] Work Phone: (1 source) Clindamycin Drug Allergy 06-25-19 [facility] Repository (1 source) Penicillins Drug allergy (disorder) 06-25-19 [facility] Repository (1 source) Clindamycin Drug Allergy [facility] Repository (1 source) cyclobenzaprine Drug Allergy [facility] Rep[facility] (1 source) Levamisole Drug Allergy 12-03-19 21 [facility] Rep[facility] (1 source) liraglutide Drug Allergy 07-16-19 22 [facility] Rep[facility] (1 source) Prochlorperazine Drug Allergy [facility] Repository (2 sources) [place] (28) Drug allergy (disorder) [facility] Rep[facility] (1 source) Misc-Drug Drug allergy (disorder) [facility] Rep[facility] Medications Current Medications Medication Drug [...] Coronary arteriosclerosis; Translations: [Atherosclerotic heart disease of [place] coronary artery without angina pectoris] Onset: 2 [...] Chronic Other aftercare (1 source) Other intermediate frame tender (current) drug therapy; Translations: [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 DRUG THERAPY] Onset: 3 Episodic Other aftercare (1 source) 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; Translations: [DISTRIBUTION FIELD ENGINEER CURRENT USE OF ASPIRIN] Onset: 3 Episodic [...] Onset: 08-16-2021 Episodic Other aftercare (1 source) [facility] (current) use of oral hypoglycemic drugs; Translations: [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 Plan for a follow-up ultrasound in 1 year. Follow-up in 6 months. Thanks! Normal [facility] Telephoneon 03-05-2023 Telephone [id number] Irma Turner 1945 F Date Provider Department Center 03/05/2023 CHRISTOPHER SHIN . Family History Problem Relation Age of Onset Breast cancer Mother Stroke Father Family Status - Relation Status Age at Mother Father Normal [facility] Office Visiton 01-31-2023 Follow-up visit [id number] Irma Turner 1945 Provider Department Center 01/31/2023 CHRISTOPHER SHIN CHARLES [facility] Family History Problem Relation Age of Onset Breast cancer Mother Stroke Father Family Status - Relation Status Age at Mother Father Level of Service:72129 [place] OFFICE/OUTPATIENT ESTABLISHED MOD MDM 30-39 MIN Reason for Visit and Comments: Congestive Heart Failure [127] Hypertension [182821] Carotid Artery Disease [453] Normal [facility] Consulton 08-29-2022 Consult [id number] Irma Turner 1945 Provider Department Center 08/29/2022 ALFREDO SAMANIEGO [facility] [place] Family History Problem Relation Age of Onset Breast cancer Mother Stroke Father Family Status - Relation Status Age at Mother Father Level of Service:85081 [place] OFFICE/OUTPATIENT NEW MODERATE MDM 45-59 MINUTES Normal [facility] MRI BRAIN WO W CONon [...] LISSETTE VILLALOBOS Date: 2022-07-04 09:08 Normal [facility] CREATININEon 07-03-2022 Creatinine [Mass/Vol] 1.87 mg/dL Critically high 0.55-1.02 [facility] Comment on above: Performed By: #### U ARMICR #### [facility] [address] [place] [address] Dr. Gasper Garber EGFR-AF MOLDOVAN 32 mL/min/1.73m2 Critically low >=60 [facility] Comment on above: Performed By: #### U ARMICR #### [facility] [address] [place] [address] Dr. Gasper Garber EGFR-NON AF MOLDOVAN 26 mL/min/1.73m2 Critically low >=60 [facility] Comment on above: Performed By: #### U ARMICR #### [facility] [address] [place] [address] Dr. Gasper Garber UA (CLEAN/CATCH) MICROSCOPIC IF INDICATEon 05-26-2022 Bilirubin Ql (U) Negative Normal NEGATIVE [facility] Comment on above: Performed By: #### U ARMICR #### [facility] [address] [place] [address] Dr. Gasper Garber Clarity (U) CLEAR Normal CLEAR [facility] Comment on above: Performed By: #### U ARMICR #### [facility] [address] [place] [address] Dr. Gasper Garber Color (U) LT. YELLOW Normal YELLOW [facility] Comment on above: Performed By: #### U ARMICR #### [facility] [address] [place] [address] Dr. Gasper Garber Glucose Ql (U) Negative Normal NEGATIVE [facility] Comment on above: Performed By: #### U ARMICR #### [facility] [address] [place] [address] Dr. Gasper Garber Hemoglobin Ql (U) Negative Normal NEGATIVE [facility] Comment on above: Performed By: #### U ARMICR #### [facility] [address] [address] [address] Gasper Garber Ketones Ql (U) Negative Normal NEGATIVE [facility] Comment on above: Performed By: #### U ARMICR #### [facility] [address] [place] [address] Dr. Gasper Garber LEUKOCYTES Negative Normal NEGATIVE [facility] Comment on above: Performed By: #### U ARMICR #### [facility] [address] [address] [address] Gasper Garber Nitrite Ql (U) Negative Normal NEGATIVE [facility] Comment on above: Performed By: #### U ARMICR #### [facility] [address] [place] [address] Dr. Gasper Garber pH (U) 6.5 [pH] Normal 5-9 [facility] Comment on above: Performed By: #### U ARMICR #### [facility] [address] [place] [address] Dr. Gasper Garber SPEC GRAVITY 1.010 Normal 1.005-<=1.[address] [place] [address] Comment on above: Performed By: #### U ARMICR #### [facility] [address] [place] [address] Dr. Gasper Garber UA PROTEIN TRACE Normal NEGATIVE/ TRACE [facility] Comment on above: Performed By: #### U ARMICR #### [facility] [address] [place] [address] Dr. Gasper Garber UR MICRO IND NOT INDICATED Normal [facility] Comment on above: Performed By: #### U ARMICR #### [facility] [address] [place] [address] Dr. Gasper Garber Urobilinogen Qn (U) 0.2 {Kaushik'U}/dL Normal 0.2 - 1. 0 [facility] Comment on above: Performed By: #### U ARMICR #### [facility] [address] [place] [address] Dr. Gasper Garber CULTURE URINEon 05-16-2022 CULTURE [...] S F Nitrofurantoin <=16 S F Normal [facility] Comment on above: Performed By: #### U RCX #### [facility] [address] [place] [address] Dr. Gasper Garber MAGNESIUMon 05-16-2022 Magnesium [Mass/Vol] 2.0 mg/dL Normal 1.8-2.4 [facility] Comment on above: Performed By: #### TONI MALDONADORO #### [facility] [address] [place] [address] Dr. Gasper Garber CBC AUTO DIFFon 05-15-2022 BASO # 0.0 103/ul Normal 0.0-0.1 [facility] Comment on above: Performed By: #### JOANNE MALDONADOICRO #### [facility] [address] [place] [address] Dr. Gasper Garber Basophils/100 WBC (Bld) 0.5 % Normal 0.2-2.0 [facility] Comment on above: Performed By: #### Bernice HERNDON UMICRO #### [facility] [address] [place] [address] Dr. Gasper Garber EO # 0.2 103/ul Normal 0.0-0.7 [facility] Comment on above: Performed By: #### Bernice HERNDON UMICRO #### [facility] [address] [place] [address] Dr. Gasper Garber Eosinophils/100 WBC (Bld) 1.8 % Normal 0.9-7.0 [facility] Comment on above: Performed By: #### Bernice HERNDON UMICRO #### [facility] [address] [place] [address] Dr. Gasper Garber Erythrocyte distribution width (RBC) [Ratio] 12.5 % Normal 11.0-15.0 [facility] Comment on above: Performed By: #### BERNIE MALDONADO #### [facility] [address] [place] [address] Dr. Gasper Garebr Hematocrit (Bld) [Volume fraction] 36.1 % Normal 36.0-48.0 [facility] Comment on above: Performed By: #### TONI MALDONADORO #### [facility] [address] [place] [address] Dr. Gasper Garber Hemoglobin (Bld) [Mass/Vol] 11.8 g/dL Critically low 12.0-16.0 [facility] Comment on above: Performed By: #### BERNIE MALDONADO #### [facility] [address] [place] [address] Dr. Gasper Garber IG # 0.02 10e3/ul Normal 0.00-0.03 [facility] Comment on above: Performed By: #### TONI MALDONADORO #### [facility] [address] [place] [address] Dr. Gasper Garber IG % 0.2 % Normal 0.0-0.5 [facility] Comment on above: Performed By: #### TONI MALDONADORO #### [facility] [address] [place] [address] Dr. Gasper Garber LYMPH # 1.2 103/ul Normal 1.2-3.8 [facility] Comment on above: Performed By: #### TONI MALDONADORO #### [facility] [address] [place] [address] Dr. Gasper Garber Lymphocytes/100 WBC (Bld) 14.2 % Critically low 20.5-60.0 [facility] Comment on above: Performed By: #### TONI MALDONADORO #### [facility] [address] [place] [address] Dr. Gasper Garber MANUAL DIFF REQ NO Normal [facility] Comment on above: Performed By: #### TONI MALDONADORO #### [facility] [address] [place] [address] Dr. Gasper Garber MCH (RBC) [Entitic mass] 30.6 pg Normal 26.7-34.0 [facility] Comment on above: Performed By: #### E YANICK, UMICRO #### [facility] [address] [place] [address] Dr. Gasper Garber MCHC (RBC) [Mass/Vol] 32.7 g/dL Normal 29.9-35.2 [facility] Comment on above: Performed By: #### E YANICK, UMICRO #### [facility] [address] [place] [address] Dr. Gasper Garber MCV (RBC) [Entitic vol] 93.8 fL Normal 81.0-99.0 [facility] Comment on above: Performed By: #### E YANICK UMICRO #### [facility] [address] [place] [address] Dr. Gasper Garber MONO # 1.0 103/ul Critically high 0.3-0.8 [facility] Comment on above: Performed By: #### Bernice HERNDON UMICRO #### [facility] [address] [place] [address] Dr. Gasper Garber Monocytes/100 WBC (Bld) 12.3 % Critically high 1.7-12.0 [facility] Comment on above: Performed By: #### Bernice HERNDON, UMICRO #### [facility] [address] [place] [address] Dr. Gasper Garber NEUT # 5.9 103/ul Normal 1.4-6.5 [facility] Comment on above: Performed By: #### E RUCrystal, UMICRO #### [facility] [address] [place] [address] Dr. Gasper Garber Neutrophils/100 WBC (Bld) 71.0 % Normal 43.0-75.0 [facility] Comment on above: Performed By: #### E RUR, UMICRO #### [facility] [address] [place] [address] Dr. Gasper Garber Platelet mean volume (Bld) [Entitic vol] 11.3 fL Normal 9.5-13.5 [facility] Comment on above: Performed By: #### TONI MALDONADORO #### [facility] [address] [place] [address] Dr. Gasper Garber PLT 237 103/ul Normal 150-450 [facility] Comment on above: Performed By: #### TONI MALDONADORO #### [facility] [address] [place] [address] Dr. Gasper Garber RBC 3.85 106/ul Critically low 4.20-5.40 [facility] Comment on above: Performed By: #### TONI MALDONADORO #### [facility] [address] [place] [address] Dr. Gasper Garber WBC 8.4 103/ul Normal 4.0-11.0 [facility] Comment on above: Performed By: #### TONI MALDONADORO #### [facility] [address] [place] [address] Dr. Gasper Garber MAGNESIUMon 05-15-2022 Magnesium [Mass/Vol] 2.0 mg/dL Normal 1.8-2.4 [facility] Comment on above: Performed By: #### TONI MALDONADORO #### [facility] [address] [place] [address] Dr. Gasper Garber PROF 14(COMP METB)on 023 Albumin [Mass/Vol] 3.4 g/dL Normal 3.4-5.0 [facility] Comment on above: Performed By: #### TONI MALDONADORO #### [facility] [address] [place] [address] Dr. Gasper Garber Albumin/Globulin [Mass ratio] 1.0 {ratio} Normal [facility] Comment on above: Performed By: #### Bernice HERNDON UMICRO #### [facility] [address] [place] [address] Dr. Gasper Garber ALP [Catalytic activity/Vol] 70 U/L Normal 46-116 [facility] Comment on above: Performed By: #### Bernice HERNDON UMICRO #### [facility] [address] [place] [address] Dr. Gasper Garber ALT [Catalytic activity/Vol] 23 U/L Normal 14-59 [facility] Comment on above: Performed By: #### Bernice HERNDON UMICRO #### [facility] [address] [place] [address] Dr. Gasper Garber Anion gap [Moles/Vol] 12.2 mmol/L Normal [facility] Comment on above: Performed By: #### Bernice HERNDON UMICRO #### [facility] [address] [place] [address] Dr. Gasper Garber AST [Catalytic activity/Vol] 13 U/L Critically low 15-37 [facility] Comment on above: Performed By: #### Bernice HERNDON UMICRO #### [facility] [address] [place] [address] Dr. Gasper Garber Bilirubin [Mass/Vol] 0.6 mg/dL Normal 0.2-1.0 [facility] Comment on above: Performed By: #### Bernice HERNDON UMICRO #### [facility] [address] [place] [address] Dr. Gasper Garber Calcium [Mass/Vol] 9.6 mg/dL Normal 8.5-10.1 [facility] Comment on above: Performed By: #### Bernice HERNDON UMICRO #### [facility] [address] [place] [address] Dr. Gasper Garber Chloride [Moles/Vol] 106 mmol/L Normal 98-107 [facility] Comment on above: Performed By: #### E YANICK UMICRO #### [facility] [address] [place] [address] Dr. Gasper Garber CO2 [Moles/Vol] 29.0 mmol/L Normal 21.0-32.0 [facility] Comment on above: Performed By: #### E YANICK UMICRO #### [facility] [address] [place] [address] Dr. Gasper Garber Creatinine [Mass/Vol] 1.46 mg/dL Critically high 0.55-1.02 [facility] Comment on above: Performed By: #### BERNIE MALDONADO #### [facility] [address] [place] [address] Dr. Gasper Garber EGFR-AF MOLDOVAN 42 mL/min/1.73m2 Critically low >=60 [facility] Comment on above: Performed By: #### TONI MALDONADORO #### [facility] [address] [place] [address] Dr. Gasper Garber EGFR-NON AF MOLDOVAN 35 mL/min/1.73m2 Critically low >=60 [facility] Comment on above: Performed By: #### TONI MALDONADORO #### [facility] [address] [place] [address] Dr. Gasper Garber Globulin (S) [Mass/Vol] 3.3 g/dL Normal [facility] Comment on above: Performed By: #### TONI MALDONADORO #### [facility] [address] [place] [address] Dr. Gasper Garber Glucose [Mass/Vol] 154 mg/dL Critically high 74-106 [facility] Comment on above: Performed By: #### TONI MALDONADORO #### [facility] [address] [place] [address] Dr. Gasper Garber Potassium [Moles/Vol] 3.2 mmol/L Critically low 3.5-5.1 [facility] Comment on above: Performed By: #### TONI MALDONADORO #### [facility] [address] [place] [address] Dr. Gasper Garber Protein [Mass/Vol] 6.7 g/dL Normal 6.4-8.2 [facility] Comment on above: Performed By: #### TONI MALDONADORO #### [facility] [address] [place] [address] Dr. Gasper Garber Sodium [Moles/Vol] 144 mmol/L Normal 136-145 [facility] Comment on above: Performed By: #### BERNIE MALDONADO #### [facility] [address] [place] [address] Dr. Gasper Garber Urea nitrogen [Mass/Vol] 28.0 mg/dL Critically high 7.0-18.0 [facility] Comment on above: Performed By: #### E TONI HERNDONRO #### [facility] [address] [place] [address] Dr. Gasper Garber Urea nitrogen/Creatinine [Mass ratio] 19.2 mg/mg Normal [facility] Comment on above: Performed By: #### E TONI HERNDONRO #### [facility] [address] [place] [address] Dr. Gasper Garber BNPon 05-14-2022 Natriuretic peptide B (Bld) [Mass/Vol] 1231.0 pg/mL Critically high <=900.0 [facility] Comment on above: Performed By: #### L ACT #### [facility] [address] [place] [address] Dr. Gasper Garber CARDIAC SEKOU ADMITon 023 CK [Catalytic activity/Vol] 30 U/L Normal 26-192 [facility] Comment on above: Performed By: #### L ACT #### [facility] [address] [place] [address] Dr. Gasper Garber CK.MB [Mass/Vol] 0.54 ng/mL Normal <=3.60 [facility] Comment on above: Performed By: #### L ACT #### [facility] [address] [place] [address] Dr. Gasper Garber HSTROP 9.8 pg/mL Normal 4.0-51.3 [facility] Comment on above: Result Comment: CUT- OFF POINTS HAVE BEEN ESTABLISHED BASED ON THE FOURTH UNIVERSAL DEFINITIONS OF MYOCARDIAL INFARCTION. THE UPPER REFERENCE LIMIT (URL) OF TROPONIN, DEFINED THE 99TH PERCENTILE OF cTnI DISTRIBUTION IN A REFERENCE POPULATION, HAS BEEN CONFIRMED THE DECISION THRESHOLD FOR OR DIAGNOSIS. Performed By: #### L ACT #### [facility] [address] [place] [address] Dr. Gasper Garber JUSTIN 62 ng/mL Normal 9-82 [facility] Comment on above: Performed By: #### L ACT #### [facility] [address] [place] [address] Dr. Gasper Garber CBC AUTO DIFFon 05-14-2022 BASO # 0.0 103/ul Normal 0.0-0.1 [facility] Comment on above: Performed By: #### U ARMICR #### [facility] [address] [place] [address] Dr. Gasper Garber Basophils/100 WBC (Bld) 0.4 % Normal 0.2-2.0 [facility] Comment on above: Performed By: #### U ARMICR #### [facility] [address] [place] [address] Dr. Gasper Garber EO # 0.2 103/ul Normal 0.0-0.7 [facility] Comment on above: Performed By: #### U ARMICR #### [facility] [address] [place] [address] Dr. Gasper Garber Eosinophils/100 WBC (Bld) 2.4 % Normal 0.9-7.0 [facility] Comment on above: Performed By: #### U ARMICR #### [facility] [address] [place] [address] Dr. Gasper Garber Erythrocyte distribution width (RBC) [Ratio] 12.7 % Normal 11.0-15.0 [facility] Comment on above: Performed By: #### U ARMICR #### [facility] [address] [place] [address] Dr. Gasper Garber Hematocrit (Bld) [Volume fraction] 36.4 % Normal 36.0-48.0 [facility] Comment on above: Performed By: #### U ARMICR #### [facility] [address] [place] [address] Dr. Gasper Garber Hemoglobin (Bld) [Mass/Vol] 11.7 g/dL Critically low 12.0-16.0 [facility] Comment on above: Performed By: #### U ARMICR #### [facility] [address] [place] [address] Dr. Gasper Garber IG # 0.03 10e3/ul Normal 0.00-0.03 [facility] Comment on above: Performed By: #### U ARMICR #### [facility] [address] [place] [address] Dr. Gasper Garber IG % 0.3 % Normal 0.0-0.5 [facility] Comment on above: Performed By: #### U ARMICR #### [facility] [address] [place] [address] Dr. Gasper Garber LYMPH # 1.9 103/ul Normal 1.2-3.8 [facility] Comment on above: Performed By: #### U ARMICR #### [facility] [address] [place] [address] Dr. Gasper Garber Lymphocytes/100 WBC (Bld) 20.2 % Critically low 20.5-60.0 [facility] Comment on above: Performed By: #### U ARMICR #### [facility] [address] [place] [address] Dr. Gasper Garber MANUAL DIFF REQ NO Normal [facility] Comment on above: Performed By: #### U ARMICR #### [facility] [address] [place] [address] Dr. Gasper Garber MCH (RBC) [Entitic mass] 30.8 pg Normal 26.7-34.0 [facility] Comment on above: Performed By: #### U ARMICR #### [facility] [address] [place] [address] Dr. Gasper Garber MCHC (RBC) [Mass/Vol] 32.1 g/dL Normal 29.9-35.2 [facility] Comment on above: Performed By: #### U ARMICR #### [facility] [address] [place] [address] Dr. Gasper Garber MCV (RBC) [Entitic vol] 95.8 fL Normal 81.0-99.0 [facility] Comment on above: Performed By: #### U ARMICR #### [facility] [address] [place] [address] Dr. Gasper Garber MONO # 1.2 103/ul Critically high 0.3-0.8 [facility] Comment on above: Performed By: #### U ARMICR #### [facility] [address] [place] [address] Dr. Gasper Garber Monocytes/100 WBC (Bld) 13.0 % Critically high 1.7-12.0 [facility] Comment on above: Performed By: #### U ARMICR #### [facility] [address] [place] [address] Dr. Gsaper Garber NEUT # 5.8 103/ul Normal 1.4-6.5 [facility] Comment on above: Performed By: #### U ARMICR #### [facility] [address] [place] [address] Dr. Gasper Garber Neutrophils/100 WBC (Bld) 63.7 % Normal 43.0-75.0 [facility] Comment on above: Performed By: #### U ARMICR #### [facility] [address] [place] [address] Dr. Gasper Garber Platelet mean volume (Bld) [Entitic vol] 10.0 fL Normal 9.5-13.5 [facility] Comment on above: Performed By: #### U ARMICR #### [facility] [address] [place] [address] Dr. Gasper Garber PLT 251 103/ul Normal 150-450 [facility] Comment on above: Performed By: #### U ARMICR #### [facility] [address] [place] [address] Dr. Gasper Garber RBC 3.80 106/ul Critically low 4.20-5.40 [facility] Comment on above: Performed By: #### U ARMICR #### [facility] [address] [place] [address] Dr. Gasper Garber WBC 9.2 103/ul Normal 4.0-11.0 [facility] Comment on above: Performed By: #### U ARMICR #### [facility] [address] [place] [address] Dr. Gasper Garber BASO # 0.0 103/ul Normal 0.0-0.1 [facility] Comment on above: Performed By: #### U ARMICR #### [facility] [address] [place] [address] Dr. Gasper Garber Basophils/100 WBC (Bld) 0.0 % Critically low 0.2-2.0 [facility] Comment on above: Performed By: #### U ARMICR #### [facility] [address] [place] [address] Dr. Gasper Garber EO # 0.0 103/ul Normal 0.0-0.7 [facility] Comment on above: Performed By: #### U ARMICR #### [facility] [address] [place] [address] Dr. Gasper Garber Eosinophils/100 WBC (Bld) 0.0 % Critically low 0.9-7.0 [facility] Comment on above: Performed By: #### U ARMICR #### [facility] [address] [place] [address] Dr. Gasper Garber Erythrocyte distribution width (RBC) [Ratio] 12.1 % Normal 11.0-15.0 [facility] Comment on above: Performed By: #### U ARMICR #### [facility] [address] [place] [address] Dr. Gasper Garber Hematocrit (Bld) [Volume fraction] 37.9 % Normal 36.0-48.0 [facility] Comment on above: Performed By: #### U ARMICR #### [facility] [address] [place] [address] Dr. Gapser Garber Hemoglobin (Bld) [Mass/Vol] 12.2 g/dL Normal 12.0-16.0 [facility] Comment on above: Performed By: #### U ARMICR #### [facility] [address] [place] [address] Dr. Gasper Garber IG # 0.00 10e3/ul Normal 0.00-0.03 [facility] Comment on above: Performed By: #### U ARMICR #### [facility] [address] [address] [address] Gasper Garber IG % 0.0 % Normal 0.0-0.5 [facility] Comment on above: Performed By: #### U ARMICR #### [facility] [address] [address] [address] Gasper Garber LYMPH # 1.3 103/ul Normal 1.2-3.8 [facility] Comment on above: Performed By: #### U ARMICR #### [facility] [address] [address] [address] Gasper Garber Lymphocytes/100 WBC (Bld) 18.6 % Critically low 20.5-60.0 [facility] Comment on above: Performed By: #### U ARMICR #### [facility] [address] [address] [address] Gasper Garber MANUAL DIFF REQ NO Normal [facility] Comment on above: Performed By: #### U ARMICR #### [facility] [address] [address] [address] aGsper Garber MCH (RBC) [Entitic mass] 30.7 pg Normal 26.7-34.0 [facility] Comment on above: Performed By: #### U ARMICR #### [facility] [address] [address] [address] Gasper Garber MCHC (RBC) [Mass/Vol] 32.2 g/dL Normal 29.9-35.2 [facility] Comment on above: Performed By: #### U ARMICR #### [facility] [address] [address] [address] Gasper Garber MCV (RBC) [Entitic vol] 95.5 fL Normal 81.0-99.0 [facility] Comment on above: Performed By: #### U ARMICR #### [facility] [address] [address] [address] Gasper Garber MONO # 0.8 103/ul Normal 0.3-0.8 [facility] Comment on above: Performed By: #### U ARMICR #### [facility] [address] [address] [address] Gasper Garber Monocytes/100 WBC (Bld) 11.6 % Normal 1.7-12.0 [facility] Comment on above: Performed By: #### U ARMICR #### [facility] [address] [address] [address] Gasper Garber NEUT # 5.0 103/ul Normal 1.4-6.5 [facility] Comment on above: Performed By: #### U ARMICR #### [facility] [address] [address] [address] Gasper Garber Neutrophils/100 WBC (Bld) 69.8 % Normal 43.0-75.0 [facility] Comment on above: Performed By: #### U ARMICR #### [facility] [address] [place] [address] Dr. Gasper Garber Platelet mean volume (Bld) [Entitic vol] 9.8 fL Normal 9.5-13.5 [facility] Comment on above: Performed By: #### U ARMICR #### [facility] [address] [address] [address] Gasper Garber PLT 258 103/ul Normal 150-450 [facility] Comment on above: Performed By: #### U ARMICR #### [facility] [address] [address] [address] Gasper Garber RBC 3.97 106/ul Critically low 4.20-5.40 [facility] Comment on above: Performed By: #### U ARMICR #### [facility] [address] [address] [address] Gasper Garber WBC 7.1 103/ul Normal 4.0-11.0 [facility] Comment on above: Performed By: #### U ARMICR #### [facility] [address] [place] [address] HEAD WO CONon [...] Mild cervical spondylosis. Electronically authenticated by: [facility] Date: 2022-05-14 00:20 Normal [facility] Covid-19 PCR (CVDTB)on 04-20 SARS-CoV-2 (COVID-19) RNA ANA LUISA+probe Ql (Unsp spec) Not detected Normal NOT DETECTED [facility] Comment on above: Result Comment: When [...] for this test is supported by the [place] [employer]'s declaration that [...] used). Performed By: #### L ACT #### [facility] [address] [place] [address] Dr. Gasper Garber ER URINE PROFILEon 3 Bilirubin Ql (U) Negative Normal NEGATIVE [facility] Comment on above: Performed By: #### A CETON #### [facility] [address] [place] [address] Dr. Gasper Garber Clarity (U) CLEAR Normal CLEAR [facility] Comment on above: Performed By: #### A CETON #### [facility] [address] [place] [address] Dr. Gasper Garber Color (U) LT. YELLOW Normal YELLOW [facility] Comment on above: Performed By: #### A CETON #### [facility] [address] [place] [address] Dr. Gasper Garber ERUAHD A micrscopic examina tion will be performed if indicated. Normal [facility] Comment on above: Performed By: #### A CETON #### [facility] [address] [place] [address] Dr. Gasper Garber Glucose Ql (U) Negative Normal NEGATIVE [facility] Comment on above: Performed By: #### A CETON #### [facility] [address] [place] [address] Dr. Gasper Garber Hemoglobin Ql (U) Negative Normal NEGATIVE [facility] Comment on above: Performed By: #### A CETON #### [facility] [address] [place] [address] Dr. Gasper Garber Ketones Ql (U) Negative Normal NEGATIVE [facility] Comment on above: Performed By: #### A CETON #### [facility] [address] [place] [address] Dr. Gaspre Garber LEUKOCYTES Negative Normal NEGATIVE [facility] Comment on above: Performed By: #### A CETON #### [facility] [address] [place] [address] Dr. Gasper Garber Nitrite Ql (U) Positive Abnormal NEGATIVE [facility] Comment on above: Performed By: #### A CETON #### [facility] [address] [place] [address] Dr. Gasper Garber pH (U) 7.0 [pH] Normal 5-9 [facility] Comment on above: Performed By: #### A CETON #### [facility] [address] [place] [address] Dr. Gasper Garber SPEC GRAVITY <=1.005 Abnormal 1.005-<=1.0 25 [facility] Comment on above: Performed By: #### A CETON #### [facility] [address] [place] [address] Dr. Gasper Garber UA PROTEIN Negative Normal NEGATIVE/ TRACE [facility] Comment on above: Performed By: #### A CETON #### [facility] [address] [place] [address] Dr. Gasper Garber UR MICRO IND INDICATED Normal [facility] Comment on above: Performed By: #### A CETON #### [facility] [address] [place] [address] Dr. Gasper Garber Urobilinogen Qn (U) 0.2 {Kaushik'U}/dL Normal 0.2 - 1. 0 [facility] Comment on above: Performed By: #### A CETON #### [facility] [address] [place] [address] Dr. Gasper Garber MAGNESIUMon 05-14-2022 Magnesium [Mass/Vol] 2.4 mg/dL Normal 1.8-2.4 [facility] Comment on above: Performed By: #### Bernice HERNDON UMICRO #### [facility] [address] [place] [address] Dr. Gasper Garber PROF 14(COMP METB)on 023 Albumin [Mass/Vol] 3.5 g/dL Normal 3.4-5.0 [facility] Comment on above: Performed By: #### Bernice HERNDON UMICRO #### [facility] [address] [place] [address] Dr. Gasper Garber Albumin/Globulin [Mass ratio] 1.0 {ratio} Normal [facility] Comment on above: Performed By: #### Bernice HERNDON UMICRO #### [facility] [address] [place] [address] Dr. Gasper Garber ALP [Catalytic activity/Vol] 82 U/L Normal 46-116 [facility] Comment on above: Performed By: #### Bernice HERNDON UMICRO #### [facility] [address] [place] [address] Dr. Gasper Garber ALT [Catalytic activity/Vol] 22 U/L Normal 14-59 [facility] Comment on above: Performed By: #### Bernice HERNDON, UMICRO #### [facility] [address] [place] [address] Dr. Gasper Garber Anion gap [Moles/Vol] 11.1 mmol/L Normal [facility] Comment on above: Performed By: #### Bernice HERNDON, UMICRO #### [facility] [address] [place] [address] Dr. Gasper Garber AST [Catalytic activity/Vol] 14 U/L Critically low 15-37 [facility] Comment on above: Performed By: #### Bernice HERDNON, UMICRO #### [facility] [address] [place] [address] Dr. Gasper Garber Bilirubin [Mass/Vol] 0.5 mg/dL Normal 0.2-1.0 [facility] Comment on above: Performed By: #### BERNIE MALDONADO #### [facility] [address] [place] [address] Dr. Gasper Garber Calcium [Mass/Vol] 9.8 mg/dL Normal 8.5-10.1 [facility] Comment on above: Performed By: #### TONI MALDONADORO #### [facility] [address] [place] [address] Dr. Gasper Garber Chloride [Moles/Vol] 99 mmol/L Normal 98-107 [facility] Comment on above: Performed By: #### TONI MALDONADORO #### [facility] [address] [place] [address] Dr. Gasper Garber CO2 [Moles/Vol] 30.5 mmol/L Normal 21.0-32.0 [facility] Comment on above: Performed By: #### TONI MALDONADORO #### [facility] [address] [place] [address] Dr. Gasper Garber Creatinine [Mass/Vol] 1.75 mg/dL Critically high 0.55-1.02 [facility] Comment on above: Performed By: #### TONI MALDONADORO #### [facility] [address] [place] [address] Dr. Gasper Garber EGFR-AF MOLDOVAN 34 mL/min/1.73m2 Critically low >=60 [facility] Comment on above: Performed By: #### TONI MALDONADORO #### [facility] [address] [place] [address] Dr. Gasper Garber EGFR-NON AF MOLDOVAN 28 mL/min/1.73m2 Critically low >=60 [facility] Comment on above: Performed By: #### TONI MALDONADORO #### [facility] [address] [place] [address] Dr. Gasper Garber Globulin (S) [Mass/Vol] 3.4 g/dL Normal [facility] Comment on above: Performed By: #### TONI MALDONADORO #### [facility] [address] [address] [address] Gasper Garber Glucose [Mass/Vol] 154 mg/dL Critically high 74-106 [facility] Comment on above: Performed By: #### E MINR, UMICRO #### [facility] [address] [address] [address] Gasper Garber Potassium [Moles/Vol] 3.6 mmol/L Normal 3.5-5.1 [facility] Comment on above: Performed By: #### E MINR, UMICRO #### [facility] [address] [address] [address] Gasper Garber Protein [Mass/Vol] 6.9 g/dL Normal 6.4-8.2 [facility] Comment on above: Performed By: #### E YANICK, UMICRO #### [facility] [address] [place] [address] Dr. Gasper Garber Sodium [Moles/Vol] 137 mmol/L Normal 136-145 [facility] Comment on above: Performed By: #### E YANICK, UMICRO #### [facility] [address] [address] [address] Gasper Garber Urea nitrogen [Mass/Vol] 35.0 mg/dL Critically high 7.0-18.0 [facility] Comment on above: Performed By: #### E YANICK, UMICRO #### [facility] [address] [address] [address] Gasper Garber Urea nitrogen/Creatinine [Mass ratio] 20.0 mg/mg Normal [facility] Comment on above: Performed By: #### E YANICK, UMICRO #### [facility] [address] [address] [address] Gasper Garber Albumin [Mass/Vol] 3.7 g/dL Normal 3.4-5.0 [facility] Comment on above: Performed By: #### L ACT #### [facility] [address] [address] [address] Gasper Garber Albumin/Globulin [Mass ratio] 1.1 {ratio} Normal [facility] Comment on above: Performed By: #### L ACT #### [facility] [address] [address] [address] Gasper Garber ALP [Catalytic activity/Vol] 84 U/L Normal 46-116 [facility] Comment on above: Performed By: #### L ACT #### [facility] [address] [address] [address] Gasper Garber ALT [Catalytic activity/Vol] 26 U/L Normal 14-59 [facility] Comment on above: Performed By: #### L ACT #### [facility] [address] [place] [address] Dr. Gasper Garber Anion gap [Moles/Vol] 8.5 mmol/L Normal [facility] Comment on above: Performed By: #### L ACT #### [facility] [address] [place] [address] Dr. Gasper Garber AST [Catalytic activity/Vol] 16 U/L Normal 15-37 [facility] Comment on above: Performed By: #### L ACT #### [facility] [address] [place] [address] Dr. Gasper Garber Bilirubin [Mass/Vol] 0.4 mg/dL Normal 0.2-1.0 [facility] Comment on above: Performed By: #### L ACT #### [facility] [address] [place] [address] Dr. Gasper Garber Calcium [Mass/Vol] 9.8 mg/dL Normal 8.5-10.1 [facility] Comment on above: Performed By: #### L ACT #### [facility] [address] [address] [address] Gasper Garber Chloride [Moles/Vol] 99 mmol/L Normal 98-107 [facility] Comment on above: Performed By: #### L ACT #### [facility] [address] [place] [address] Dr. Gasper Garber CO2 [Moles/Vol] 32.3 mmol/L Critically high 21.0-32.0 [facility] Comment on above: Performed By: #### L ACT #### [facility] [address] [address] [address] Gasper Garber Creatinine [Mass/Vol] 1.84 mg/dL Critically high 0.55-1.02 [facility] Comment on above: Performed By: #### L ACT #### [facility] [address] [address] [address] Gasper Garber EGFR-AF MOLDOVAN 33 mL/min/1.73m2 Critically low >=60 [facility] Comment on above: Performed By: #### L ACT #### [facility] [address] [address] [address] Gasper Garber EGFR-NON AF MOLDOVAN 27 mL/min/1.73m2 Critically low >=60 [facility] Comment on above: Performed By: #### L ACT #### [facility] [address] [address] [address] Gasper Garber Globulin (S) [Mass/Vol] 3.4 g/dL Normal [facility] Comment on above: Performed By: #### L ACT #### [facility] [address] [address] [address] Gasper Garber Glucose [Mass/Vol] 180 mg/dL Critically high 74-106 [facility] Comment on above: Performed By: #### L ACT #### [facility] [address] [address] [address] Gasper Garber Potassium [Moles/Vol] 3.8 mmol/L Normal 3.5-5.1 [facility] Comment on above: Performed By: #### L ACT #### [facility] [address] [address] [address] Gasper Garber Protein [Mass/Vol] 7.1 g/dL Normal 6.4-8.2 [facility] Comment on above: Performed By: #### L ACT #### [facility] [address] [address] [address] Gasper Garber Sodium [Moles/Vol] 136 mmol/L Normal 136-145 [facility] Comment on above: Performed By: #### L ACT #### [facility] [address] [place] [address] Dr. Gasper Garber Urea nitrogen [Mass/Vol] 35.0 mg/dL Critically high 7.0-18.0 [facility] Comment on above: Performed By: #### L ACT #### [facility] [address] [place] [address] Dr. Gasper Garber Urea nitrogen/Creatinine [Mass ratio] 19.0 mg/mg Normal [facility] Comment on above: Performed By: #### L ACT #### [facility] [address] [place] [address] Dr. Gasper Garber PROTIMEon 05-14-2022 INR Coag (PPP) [Relative time] 0.95 {INR} Normal [facility] Comment on above: Performed By: #### U RCX #### [facility] [address] [place] [address] Dr. Gasper Garber INR GUIDELINES SEE BELOW Normal [facility] Comment on above: Result Comment: JESUS RED INR: 2.0 - 3.0 CONDITIONS NOT LISTED BELOW 2.5 - 3.5 FOR PROSTHETIC HEART VALVE REPLACEMENT 2.5 - 3.5 RECURRENT THROMBOSIS Performed By: #### U RCX #### [facility] [address] [place] [address] Dr. Gasper Garber PT Coag (PPP) [Time] 10.1 s Normal 9.0-11.6 [facility] Comment on above: Performed By: #### U RCX #### [facility] [address] [place] [address] Dr. Gasper Garber PTTon 05-14-2022 aPTT Coag (Bld) [Time] 24.7 s Normal 22.3-36.2 [facility] Comment on above: Performed By: #### E BERNIE HERNDON #### [facility] [address] [place] [address] Dr. Gasper Garber URINE MICROSCOPIC ONLYon BACTERIA LARGE Abnormal NONE SEEN [facility] Comment on above: Performed By: #### U ARMICR #### [facility] [address] [place] [address] Dr. Gasper Garber Bacteria identified Cx Nom (U) INDICATED Normal [facility] Comment on above: Performed By: #### U ARMICR #### [facility] [address] [place] [address] Dr. Gasper Garber CAST NONE SEEN Normal NONE SEEN [facility] Comment on above: Performed By: #### U ARMICR #### [facility] [address] [place] [address] Dr. Gasper Garber Crystals LM Nom (Urine sed) NONE SEEN Normal NONE SEEN [facility] Comment on above: Performed By: #### U ARMICR #### [facility] [address] [place] [address] Dr. Gasper Garber Epithelial cells LM Ql (Urine sed) MANY Abnormal NONE SEEN /RARE [facility] Comment on above: Performed By: #### U ARMICR #### [facility] [address] [place] [address] Dr. Gasper Garber MUCOUS NONE SEEN Normal NONE SEEN [facility] Comment on above: Performed By: #### U ARMICR #### [facility] [address] [place] [address] Dr. Gasper Garber RBC 0-2 Normal 0-2 [facility] Comment on above: Performed By: #### U ARMICR #### [facility] [address] [place] [address] Dr. Gasper Garber WBC 0-2 Abnormal NONE SEEN [facility] Comment on above: Performed By: #### U ARMICR #### [facility] [address] [place] [address] Dr. Gasper Garber XR CHEST 1 Von [...] by: SAI ORTA Date: 2022-05-14 00:19 Normal [facility] XR LSPINE 2_3 VIEWSon 2022 XR LSPINE [...] by: CHRYSTAL LAUREANO Date: 2022-05-05 15:30 Normal [facility] GLYCOHEMOGLOBIN A1Con 2021 ADA RECOMMENDATION SEE BELOW Normal [facility] Comment on above: Result Comment: ADA RECOMMENDED LIMIT 4.0 - 6.0 ADA THERAPEUTIC TARGET < 7.0 ACTION SUGGESTED > 7.0 Performed By: #### BERNIE MALDONADO #### [facility] [address] [address] [address] Gasper Garber Glucose [Mass/Vol] 169 mg/dL Normal [facility] Comment on above: Performed By: #### BERNIE MALDONADO #### [facility] [address] [address] [address] Gasper Garber HbA1c (Bld) [Mass fraction] 7.5 % Critically high 4.5-6.2 [facility] Comment on above: Performed By: #### BERNIE MALDONADO #### [facility] [address] [address] [address] Gasper Garber NM GASTRIC EMPTYon 2 [...] NASRIN CHIU Date: 2021-09-09 13:23 Normal [facility] ACETONE SERUMon 08-31-2021 ACETONE Negative Normal NEGATIVE [facility] Comment on above: Performed By: #### A CETON #### [facility] [address] [address] [address] Gasper Garber CBC AUTO DIFFon 08-31-2021 BASO # 0.0 103/ul Normal 0.0-0.1 [facility] Comment on above: Performed By: #### U ARMICR #### [facility] [address] [address] [address] Gasper Garber Basophils/100 WBC (Bld) 0.5 % Normal 0.2-2.0 [facility] Comment on above: Performed By: #### U ARMICR #### [facility] [address] [address] [address] Gasper Garber EO # 0.2 103/ul Normal 0.0-0.7 [facility] Comment on above: Performed By: #### U ARMICR #### [facility] [address] [address] [address] Gasper Garber Eosinophils/100 WBC (Bld) 1.9 % Normal 0.9-7.0 [facility] Comment on above: Performed By: #### U ARMICR #### [facility] [address] [address] [address] Gasper Garber Erythrocyte distribution width (RBC) [Ratio] 12.8 % Normal 11.0-15.0 [facility] Comment on above: Performed By: #### U ARMICR #### [facility] [address] [address] [address] Gasper Garber Hematocrit (Bld) [Volume fraction] 36.2 % Normal 36.0-48.0 [facility] Comment on above: Performed By: #### U ARMICR #### [facility] [address] [address] [address] Gasper Garber Hemoglobin (Bld) [Mass/Vol] 11.4 g/dL Critically low 12.0-16.0 [facility] Comment on above: Performed By: #### U ARMICR #### [facility] [address] [place] [address] Dr. Gasper Garber IG # 0.03 10e3/ul Normal 0.00-0.03 [facility] Comment on above: Performed By: #### U ARMICR #### [facility] [address] [place] [address] Dr. Gasper Garber IG % 0.4 % Normal 0.0-0.5 [facility] Comment on above: Performed By: #### U ARMICR #### [facility] [address] [place] [address] Dr. Gasper Garber LYMPH # 1.3 103/ul Normal 1.2-3.8 [facility] Comment on above: Performed By: #### U ARMICR #### [facility] [address] [place] [address] Dr. Gasper Garber Lymphocytes/100 WBC (Bld) 15.2 % Critically low 20.5-60.0 [facility] Comment on above: Performed By: #### U ARMICR #### [facility] [address] [place] [address] Dr. Gasper Garber MANUAL DIFF REQ NO Normal [facility] Comment on above: Performed By: #### U ARMICR #### [facility] [address] [place] [address] Dr. Gasper aGrber MCH (RBC) [Entitic mass] 30.6 pg Normal 26.7-34.0 [facility] Comment on above: Performed By: #### U ARMICR #### [facility] [address] [place] [address] Dr. Gasper Garber MCHC (RBC) [Mass/Vol] 31.5 g/dL Normal 29.9-35.2 [facility] Comment on above: Performed By: #### U ARMICR #### [facility] [address] [place] [address] Dr. Gasper Garber MCV (RBC) [Entitic vol] 97.1 fL Normal 81.0-99.0 [facility] Comment on above: Performed By: #### U ARMICR #### [facility] [address] [place] [address] Dr. Gasper Garber MONO # 0.8 103/ul Normal 0.3-0.8 [facility] Comment on above: Performed By: #### U ARMICR #### [facility] [address] [place] [address] Dr. Gasper Garber Monocytes/100 WBC (Bld) 9.8 % Normal 1.7-12.0 [facility] Comment on above: Performed By: #### U ARMICR #### [facility] [address] [place] [address] Dr. Gasper Garber NEUT # 6.1 103/ul Normal 1.4-6.5 [facility] Comment on above: Performed By: #### U ARMICR #### [facility] [address] [place] [address] Dr. Gasper Garber Neutrophils/100 WBC (Bld) 72.2 % Normal 43.0-75.0 [facility] Comment on above: Performed By: #### U ARMICR #### [facility] [address] [place] [address] Dr. Gasper Garber Platelet mean volume (Bld) [Entitic vol] 10.2 fL Normal 9.5-13.5 [facility] Comment on above: Performed By: #### U ARMICR #### [facility] [address] [place] [address] Dr. Gasper Garber PLT 249 103/ul Normal 150-450 [facility] Comment on above: Performed By: #### U ARMICR #### [facility] [address] [place] [address] Dr. Gasper Garber RBC 3.73 106/ul Critically low 4.20-5.40 [facility] Comment on above: Performed By: #### U ARMICR #### [facility] [address] [place] [address] Dr. Gasper Garber WBC 8.4 103/ul Normal 4.0-11.0 [facility] Comment on above: Performed By: #### U ARMICR #### [facility] [address] [place] [address] Dr. Gasper Garber CULTURE URINEon 08-31-2021 CULTURE URINE Culture Observations : HEAVY GROWTH OF MIXED GENITAL KADEEM. NO POTENTIAL PATHOGENS SEEN. Normal [facility] Comment on above: Performed By: #### A CETON #### [facility] [address] [place] [address] Dr. Gasper Garber ER URINE PROFILEon Bilirubin Ql (U) SMALL Abnormal NEGATIVE [facility] Comment on above: Performed By: #### E RUR UMICRO #### [facility] [address] [place] [address] Dr. Gasper Garber Clarity (U) CLOUDY Abnormal CLEAR [facility] Comment on above: Performed By: #### E RUR UMICRO #### [facility] [address] [place] [address] Dr. Gasper Garber Color (U) YELLOW Normal YELLOW [facility] Comment on above: Performed By: #### E RUCrystal UMICRO #### [facility] [address] [place] [address] Dr. Gasper Garber ERUNIKI A micrscopic examina tion will be performed if indicated. Normal [facility] Comment on above: Performed By: #### E RUR UMICRO #### [facility] [address] [place] [address] Dr. Gasper Garber Glucose Ql (U) Negative Normal NEGATIVE [facility] Comment on above: Performed By: #### E RUR UMICRO #### [facility] [address] [place] [address] Dr. Gasper Garber Hemoglobin Ql (U) Negative Normal NEGATIVE [facility] Comment on above: Performed By: #### E RUR UMICRO #### [facility] [address] [place] [address] Dr. Gasper Garber Ketones Ql (U) Negative Normal NEGATIVE [facility] Comment on above: Performed By: #### Bernice HERNDON UMICRO #### [facility] [address] [place] [address] Dr. Gasper Garber LEUKOCYTES TRACE Abnormal NEGATIVE [facility] Comment on above: Performed By: #### Bernice HERNDON UMICRO #### [facility] [address] [place] [address] Dr. Gasper Garber Nitrite Ql (U) Negative Normal NEGATIVE [facility] Comment on above: Performed By: #### Bernice HERNDON UMICRO #### [facility] [address] [place] [address] Dr. Gasper Garber pH (U) 5.5 [pH] Normal 5-9 [facility] Comment on above: Performed By: #### Bernice HERNDON UMICRO #### [facility] [address] [place] [address] Dr. Gasper Garber Protein (U) [Mass/Vol] 100 mg/dL Abnormal NEGATIVE/ TRACE [facility] Comment on above: Performed By: #### Bernice HERNDON UMICRO #### [facility] [address] [place] [address] Dr. Gasper Garber SPEC GRAVITY >=1.030 Abnormal 1.005-<=1.0 25 [facility] Comment on above: Performed By: #### Bernice HERNDON UMICRO #### [facility] [address] [place] [address] Dr. Gasper Garber UR MICRO IND INDICATED Normal [facility] Comment on above: Performed By: #### Bernice HERNDON UMICRO #### [facility] [address] [place] [address] Dr. Gasper Garber Urobilinogen Qn (U) 1.0 {Kaushik'U}/dL Normal 0.2 - 1. 0 [facility] Comment on above: Performed By: #### Bernice HERNDON UMICRO #### [facility] [address] [place] [address] Dr. Gasper Garber GI PANEL (PCR)on 08-31-2021 Adenovirus F 40/41 Not detected Normal NOT DETECTED [facility] Comment on above: Performed By: #### E YANICK UMICRO #### [facility] [address] [place] [address] Dr. Gasper Garber Astrovirus Not detected Normal NOT DETECTED [facility] Comment on above: Performed By: #### E YANICK, UMICRO #### [facility] [address] [place] [address] Dr. Gasper Garber C. Diff toxin A/B Not detected Normal NOT DETECTED [facility] Comment on above: Performed By: #### E YANICK, UMICRO #### [facility] [address] [place] [address] Dr. Gasper Garber Campylobacter Not detected Normal NOT DETECTED [facility] Comment on above: Performed By: #### E YANICK UMICRO #### [facility] [address] [place] [address] Dr. Gasper Garber Cryptosporidium Not detected Normal NOT DETECTED [facility] Comment on above: Performed By: #### Bernice HERNDON ICRO #### [facility] [address] [place] [address] Dr. Gasper Garber Cyclos. Cayetanensis Not detected Normal NOT DETECTED [facility] Comment on above: Performed By: #### Bernice HERNDON ICRO #### [facility] [address] [place] [address] Dr. Gasper Garber E. Coli O157 Not Applicable Normal Not Applicable [facility] Comment on above: Performed By: #### Bernice HERNDON ICRO #### [facility] [address] [place] [address] Dr. Gasper Garber E. histolytica Not detected Normal NOT DETECTED [facility] Comment on above: Performed By: #### Bernice HERNDON UMICRO #### [facility] [address] [place] [address] Dr. Gasper Garber EAEC Not detected Normal NOT DETECTED [facility] Comment on above: Performed By: #### Bernice HERNDON UMICRO #### [facility] [address] [place] [address] Dr. Gasper Garber EIEC Not detected Normal NOT DETECTED [facility] Comment on above: Performed By: #### E YANICK, UMICRO #### [facility] [address] [place] [address] Dr. Gasper Garber EPEC Not detected Normal NOT DETECTED [facility] Comment on above: Performed By: #### E YANICK, UMICRO #### [facility] [address] [place] [address] Dr. Gasper Garber ETEC Not detected Normal NOT DETECTED [facility] Comment on above: Performed By: #### E YANICK, UMICRO #### [facility] [address] [place] [address] Dr. Gasper Carmona Not detected Normal NOT DETECTED [facility] Comment on above: Performed By: #### E YANICK, UMICRO #### [facility] [address] [place] [address] Dr. Gasper LOPEZ CONTROLS PASSED Normal [facility] Comment on above: Performed By: #### E YANICK UMICRO #### [facility] [address] [place] [address] Dr. Gasper RUVALCABA [facility] HEADER GI PANEL BACTERIA Normal [facility] Comment on above: Performed By: #### Bernice HERNDON UMICRO #### [facility] [address] [place] [address] Dr. Gasper NUNEZ ECOLI GI PANEL DIARRHEAGEN IC E.COLI / SHIGELLA Normal [facility] Comment on above: Performed By: #### Bernice HERNDON UMICRO #### [facility] [address] [place] [address] Dr. Gasper NUNEZ INFO SEE BELOW Normal [facility] Comment on above: Result Comment: EAEC - Enteroaggregative E. Coli EPEC- Enteropathogenic E. Coli ETEC- Enterotoxigenic E. Coli lt/st STEC- Shigella-like toxin-producing E. Coli stx1/stx2 EIEC- Shigella/Enteroinvasive E. Coli Performed By: #### Bernice HERNDON UMICRO #### [facility] [address] [place] [address] Dr. Gasper NUNEZ PARASITES GI PANEL PARASITES Normal [facility] Comment on above: Performed By: #### E RUR, UMICRO #### [facility] [address] [place] [address] Dr. Gasper NUNEZ VIRUS GI PANEL VIRUSES Normal [facility] Comment on above: Performed By: #### E RUR, UMICRO #### [facility] [address] [place] [address] Dr. Gasper Garber Norovirus GI/GII Detected Abnormal NOT DETECTED [facility] Comment on above: Performed By: #### E RUR, UMICRO #### [facility] [address] [place] [address] Dr. Gasper Garber P. Shigelloides Not detected Normal NOT DETECTED [facility] Comment on above: Performed By: #### E RUCrystal, UMICRO #### [facility] [address] [place] [address] Dr. Gasper Garber Rotavirus A Not detected Normal NOT DETECTED [facility] Comment on above: Performed By: #### E YANICK, UMICRO #### [facility] [address] [place] [address] Dr. Gasper Garber Salmonella Not detected Normal NOT DETECTED [facility] Comment on above: Performed By: #### E YANICK, UMICRO #### [facility] [address] [place] [address] Dr. Gasper Garber Sapovirus Not detected Normal NOT DETECTED [facility] Comment on above: Performed By: #### E RUR, UMICRO #### [facility] [address] [place] [address] Dr. Gasper Garber STEC Not detected Normal NOT DETECTED [facility] Comment on above: Performed By: #### E RUR, UMICRO #### [facility] [address] [place] [address] Dr. Gasper Garber Vibrio Not detected Normal NOT DETECTED [facility] Comment on above: Performed By: #### E RUR, UMICRO #### [facility] [address] [place] [address] Dr. Gasper Garber Vibrio Cholera Not detected Normal NOT DETECTED [facility] Comment on above: Performed By: #### TONI MALDONADORO #### [facility] [address] [place] [address] Dr. Gasper Garber Y. Enterocolitica Not detected Normal NOT DETECTED [facility] Comment on above: Performed By: #### TONI MALDONADORO #### [facility] [address] [place] [address] Dr. Gasper Garber LACTATE/LACTIC ACIDon 2021 Lactate [Moles/Vol] 1.0 mmol/L Normal 0.4-1.9 [facility] Comment on above: Performed By: #### P T, PTT #### [facility] [address] [place] [address] Dr. Gasper Garber LIPASEon 08-31-2021 Lipase [Catalytic activity/Vol] 166.0 U/L Normal 73.0-393.0 [facility] Comment on above: Performed By: #### U ARMICR #### [facility] [address] [place] [address] Dr. Gasper Garber PROF 14(COMP METB)on 022 Albumin [Mass/Vol] 3.7 g/dL Normal 3.4-5.0 [facility] Comment on above: Performed By: #### U ARMICR #### [facility] [address] [place] [address] Dr. Gasper Garbre Albumin/Globulin [Mass ratio] 1.0 {ratio} Normal [facility] Comment on above: Performed By: #### U ARMICR #### [facility] [address] [place] [address] Dr. Gasper Garber ALP [Catalytic activity/Vol] 75 U/L Normal 46-116 [facility] Comment on above: Performed By: #### U ARMICR #### [facility] [address] [place] [address] Dr. Gasper Garber ALT [Catalytic activity/Vol] 44 U/L Normal 14-59 [facility] Comment on above: Performed By: #### U ARMICR #### [facility] [address] [address] [address] Gasper Garber Anion gap [Moles/Vol] 15.3 mmol/L Normal [facility] Comment on above: Performed By: #### U ARMICR #### [facility] [address] [address] [address] Gasper Garber AST [Catalytic activity/Vol] 27 U/L Normal 15-37 [facility] Comment on above: Performed By: #### U ARMICR #### [facility] [address] [address] [address] Gasper Garber Bilirubin [Mass/Vol] 0.5 mg/dL Normal 0.2-1.0 [facility] Comment on above: Performed By: #### U ARMICR #### [facility] [address] [address] [address] Gasper Garber Calcium [Mass/Vol] 9.7 mg/dL Normal 8.5-10.1 [facility] Comment on above: Performed By: #### U ARMICR #### [facility] [address] [address] [address] Gasper Garber Chloride [Moles/Vol] 105 mmol/L Normal 98-107 [facility] Comment on above: Performed By: #### U ARMICR #### [facility] [address] [address] [address] Gapser Garber CO2 [Moles/Vol] 24.0 mmol/L Normal 21.0-32.0 [facility] Comment on above: Performed By: #### U ARMICR #### [facility] [address] [address] [address] Gasper Garber Creatinine [Mass/Vol] 2.20 mg/dL Critically high 0.55-1.02 [facility] Comment on above: Performed By: #### U ARMICR #### [facility] [address] [address] [address] Gasper Garber EGFR-AF MOLDOVAN 26 mL/min/1.73m2 Critically low >=60 [facility] Comment on above: Performed By: #### U ARMICR #### [facility] [address] [address] [address] Gasper Garber EGFR-NON AF MOLDOVAN 22 mL/min/1.73m2 Critically low >=60 [facility] Comment on above: Performed By: #### U ARMICR #### [facility] [address] [address] [address] Gasper Garber Globulin (S) [Mass/Vol] 3.7 g/dL Normal [facility] Comment on above: Performed By: #### U ARMICR #### [facility] [address] [address] [address] Gasper Garber Glucose [Mass/Vol] 280 mg/dL Critically high 74-106 [facility] Comment on above: Performed By: #### U ARMICR #### [facility] [address] [address] [address] Gasper Garber Potassium [Moles/Vol] 4.3 mmol/L Normal 3.5-5.1 [facility] Comment on above: Performed By: #### U ARMICR #### [facility] [address] [address] [address] Gasper Garber Protein [Mass/Vol] 7.4 g/dL Normal 6.4-8.2 [facility] Comment on above: Performed By: #### U ARMICR #### [facility] [address] [address] [address] Gasper Garber Sodium [Moles/Vol] 140 mmol/L Normal 136-145 [facility] Comment on above: Performed By: #### U ARMICR #### [facility] [address] [address] [address] Gasper Garber Urea nitrogen [Mass/Vol] 29.0 mg/dL Critically high 7.0-18.0 [facility] Comment on above: Performed By: #### U ARMICR #### [facility] [address] [address] [address] Gasper Garber Urea nitrogen/Creatinine [Mass ratio] 13.2 mg/mg Normal [facility] Comment on above: Performed By: #### U ARMICR #### [facility] [address] [place] [address] Dr. Gasper Garber TSHon 08-31-2021 TSH 0.923 uIU/mL Normal 0.358-3.740 [facility] Comment on above: Performed By: #### U ARMICR #### [facility] [address] [place] [address] Dr. Gasper Garber URINE MICROSCOPIC ONLYon BACTERIA SMALL Abnormal NONE SEEN [facility] Comment on above: Performed By: #### E RUR, UMICRO #### [facility] [address] [place] [address] Dr. Gasper Garber Bacteria identified Cx Nom (U) INDICATED Normal [facility] Comment on above: Performed By: #### E RUR, UMICRO #### [facility] [address] [place] [address] Dr. Gasper Garber CAST NONE SEEN Normal NONE SEEN [facility] Comment on above: Performed By: #### E RUR, UMICRO #### [facility] [address] [place] [address] Dr. Gasper Garber Crystals LM Nom (Urine sed) NONE SEEN Normal NONE SEEN [facility] Comment on above: Performed By: #### E RUR, UMICRO #### [facility] [address] [place] [address] Dr. Gasper Garber Epithelial cells LM Ql (Urine sed) MANY Abnormal NONE SEEN /RARE [facility] Comment on above: Performed By: #### E RUR, UMICRO #### [facility] [address] [place] [address] Dr. Gasper Garber MUCOUS NONE SEEN Normal NONE SEEN [facility] Comment on above: Performed By: #### E RUR, UMICRO #### [facility] [address] [place] [address] Dr. Gasper Garber RBC 0-2 Normal 0-2 [facility] Comment on above: Performed By: #### E RUR, UMICRO #### [facility] [address] [address] [address] Gasper Garber WBC 2-5 Abnormal NONE SEEN [facility] Comment on above: Performed By: #### BERNIE MALDONADO #### [facility] [address] [place] [address] Dr. Gasper Garber XR ABD FLAT UP_PA [...] CHRYSTAL LAUREANO Date: 2021-08-31 15:55 Normal [facility] CBC AUTO DIFFon 08-27-2021 BASO # 0.1 103/ul Normal 0.0-0.1 [facility] Comment on above: Performed By: #### BERNIE MALDONADO #### [facility] [address] [place] [address] Dr. Gasper Garber Basophils/100 WBC (Bld) 0.6 % Normal 0.2-2.0 [facility] Comment on above: Performed By: #### BERNIE MALDONADO #### [facility] [address] [address] [address] Gasper Garber EO # 0.0 103/ul Normal 0.0-0.7 [facility] Comment on above: Performed By: #### BERNIE MALDONADO #### [facility] [address] [place] [address] Dr. Gasper Garber Eosinophils/100 WBC (Bld) 0.5 % Critically low 0.9-7.0 [facility] Comment on above: Performed By: #### BERNIE MALDONADO #### [facility] [address] [place] [address] Dr. Gasper Garber Erythrocyte distribution width (RBC) [Ratio] 13.0 % Normal 11.0-15.0 [facility] Comment on above: Performed By: #### TONI MALDONADORO #### [facility] [address] [place] [address] Dr. Gasper Garber Hematocrit (Bld) [Volume fraction] 35.6 % Critically low 36.0-48.0 [facility] Comment on above: Performed By: #### Bernice HERNDON, UMICRO #### [facility] [address] [place] [address] Dr. Gasper Garber Hemoglobin (Bld) [Mass/Vol] 11.5 g/dL Critically low 12.0-16.0 [facility] Comment on above: Performed By: #### Bernice HERNDON UMICRO #### [facility] [address] [place] [address] Dr. Gasper Garber IG # 0.03 10e3/ul Normal 0.00-0.03 [facility] Comment on above: Performed By: #### Bernice HERNDON UMICRO #### [facility] [address] [place] [address] Dr. Gasper Garber IG % 0.3 % Normal 0.0-0.5 [facility] Comment on above: Performed By: #### Bernice HERNDON, UMICRO #### [facility] [address] [place] [address] Dr. Gasper Garber LYMPH # 1.0 103/ul Critically low 1.2-3.8 [facility] Comment on above: Performed By: #### Bernice HERNDON, UMICRO #### [facility] [address] [place] [address] Dr. Gasper Garber Lymphocytes/100 WBC (Bld) 10.8 % Critically low 20.5-60.0 [facility] Comment on above: Performed By: #### Bernice HERNDON, UMICRO #### [facility] [address] [place] [address] Dr. Gasper Garber MANUAL DIFF REQ NO Normal [facility] Comment on above: Performed By: #### TONI MALDONADORO #### [facility] [address] [place] [address] Dr. Gasper Garber MCH (RBC) [Entitic mass] 31.2 pg Normal 26.7-34.0 [facility] Comment on above: Performed By: #### TONI MALDONADORO #### [facility] [address] [place] [address] Dr. Gasper Garber MCHC (RBC) [Mass/Vol] 32.3 g/dL Normal 29.9-35.2 [facility] Comment on above: Performed By: #### JOANNE MALDONADOICRO #### [facility] [address] [place] [address] Dr. Gasper Garber MCV (RBC) [Entitic vol] 96.5 fL Normal 81.0-99.0 [facility] Comment on above: Performed By: #### TONI MALDONADORO #### [facility] [address] [place] [address] Dr. Gasper Garber MONO # 0.6 103/ul Normal 0.3-0.8 [facility] Comment on above: Performed By: #### TONI MALDONADORO #### [facility] [address] [place] [address] Dr. Gasper Garber Monocytes/100 WBC (Bld) 7.2 % Normal 1.7-12.0 [facility] Comment on above: Performed By: #### JOANNE MALDONADOICRO #### [facility] [address] [place] [address] Dr. Gasper Garber NEUT # 7.1 103/ul Critically high 1.4-6.5 [facility] Comment on above: Performed By: #### TONI MALDONADORO #### [facility] [address] [place] [address] Dr. Gasper Garber Neutrophils/100 WBC (Bld) 80.6 % Critically high 43.0-75.0 [facility] Comment on above: Performed By: #### TONI MALDONADORO #### [facility] [address] [address] [address] Gasper Garber Platelet mean volume (Bld) [Entitic vol] 10.2 fL Normal 9.5-13.5 [facility] Comment on above: Performed By: #### Bernice HERNDON, UMICRO #### [facility] [address] [place], [place] [address] Dr. Gasper Garber PLT 276 103/ul Normal 150-450 [facility] Comment on above: Performed By: #### Bernice HERNDON, UMICRO #### [facility] [address] [place], [place] [address] Dr. Gasper Garber RBC 3.69 106/ul Critically low 4.20-5.40 [facility] Comment on above: Performed By: #### Bernice HERNDON, UMICRO #### [facility] [address] [place], [place] [address] Dr. Gasper Garber WBC 8.8 103/ul Normal 4.0-11.0 [facility] Comment on above: Performed By: #### Bernice HERNDON, UMICRO #### [facility] [address] [place], [place] [address] ABD/PELVIS WO CONon [...] BELIA GAFFNEY Date: 2021-08-27 16:04 Normal [facility] URINE PROFILEon 2 Bilirubin Ql (U) Negative Normal NEGATIVE [facility] Comment on above: Performed By: #### Bernice HERNDON UMICRO #### [facility] [address] [place] [address] Dr. Gasper Garber Clarity (U) CLEAR Normal CLEAR [facility] Comment on above: Performed By: #### Bernice HERNDON UMICRO #### [facility] [address] [address] [address] Gasper Garber Color (U) LT. YELLOW Normal YELLOW [facility] Comment on above: Performed By: #### Bernice HERNDON UMICRO #### [facility] [address] [place] [address] Dr. Gasper Garber ERUNIKI A micrscopic examina tion will be performed if indicated. Normal [facility] Comment on above: Performed By: #### Bernice COPELANDR UMICRO #### [facility] [address] [address] [address] Gasper Garber Glucose Ql (U) Negative Normal NEGATIVE [facility] Comment on above: Performed By: #### E RUR UMICRO #### [facility] [address] [place] [address] Dr. Gasper Garber Hemoglobin Ql (U) Negative Normal NEGATIVE [facility] Comment on above: Performed By: #### BERNIE MALDONADO #### [facility] [address] [place] [address] Dr. Gasper Garber Ketones Ql (U) Negative Normal NEGATIVE [facility] Comment on above: Performed By: #### TONI MALDONADORO #### [facility] [address] [place] [address] Dr. Gasper Garber LEUKOCYTES Negative Normal NEGATIVE [facility] Comment on above: Performed By: #### TONI MALDONADORO #### [facility] [address] [place] [address] Dr. Gasper Garber Nitrite Ql (U) Negative Normal NEGATIVE [facility] Comment on above: Performed By: #### TONI MALDONADORO #### [facility] [address] [place] [address] Dr. Gasper Garber pH (U) 6.5 [pH] Normal 5-9 [facility] Comment on above: Performed By: #### TONI MALDONADORO #### [facility] [address] [place] [address] Dr. Gasper Garber Protein (U) [Mass/Vol] 100 mg/dL Abnormal NEGATIVE/ TRACE [facility] Comment on above: Performed By: #### TONI MALDONADORO #### [facility] [address] [place] [address] Dr. Gasper Garber SPEC GRAVITY 1.015 Normal 1.005-<=1.0 25 [facility] Comment on above: Performed By: #### TONI MALDONADORO #### [facility] [address] [place] [address] Dr. Gasper Garber UR MICRO IND INDICATED Normal [facility] Comment on above: Performed By: #### TONI MALDONADORO #### [facility] [address] [place] [address] Dr. Gasper Garber Urobilinogen Qn (U) 0.2 {Kaushik'U}/dL Normal 0.2 - 1. 0 [facility] Comment on above: Performed By: #### TONI MALDONADORO #### [facility] [address] [address] [address] Gasper Garber PROF CHEM 8 (BAS METB)on Anion gap [Moles/Vol] 14.7 mmol/L Normal [facility] Comment on above: Performed By: #### P T, PTT #### [facility] [address] [place] [address] Dr. Gasper Garber Calcium [Mass/Vol] 10.1 mg/dL Normal 8.5-10.1 [facility] Comment on above: Performed By: #### P T, PTT #### [facility] [address] [place] [address] Dr. Gasper Garber Chloride [Moles/Vol] 105 mmol/L Normal 98-107 [facility] Comment on above: Performed By: #### P T, PTT #### [facility] [address] [place] [address] Dr. Gasper Garber CO2 [Moles/Vol] 24.0 mmol/L Normal 21.0-32.0 [facility] Comment on above: Performed By: #### P T, PTT #### [facility] [address] [place] [address] Dr. Gasper Garber Creatinine [Mass/Vol] 1.56 mg/dL Critically high 0.55-1.02 [facility] Comment on above: Performed By: #### P T, PTT #### [facility] [address] [place] [address] Dr. Gasper Garber EGFR-AF MOLDOVAN 39 mL/min/1.73m2 Critically low >=60 [facility] Comment on above: Performed By: #### P T, PTT #### [facility] [address] [place] [address] Dr. Gasper Garber EGFR-NON AF MOLDOVAN 32 mL/min/1.73m2 Critically low >=60 [facility] Comment on above: Performed By: #### P T, PTT #### [facility] [address] [place] [address] Dr. Gasper Garber Glucose [Mass/Vol] 209 mg/dL Critically high 74-106 [facility] Comment on above: Performed By: #### P T, PTT #### [facility] [address] [address] [address] Gasper Garber Potassium [Moles/Vol] 4.7 mmol/L Normal 3.5-5.1 [facility] Comment on above: Performed By: #### P T, PTT #### [facility] [address] [place] [address] Dr. Gasper Garber Sodium [Moles/Vol] 139 mmol/L Normal 136-145 [facility] Comment on above: Performed By: #### P T, PTT #### [facility] [address] [place] [address] Dr. Gasper Garber Urea nitrogen [Mass/Vol] 16.0 mg/dL Normal 7.0-18.0 [facility] Comment on above: Performed By: #### P T, PTT #### [facility] [address] [place] [address] Dr. Gasper Garber Urea nitrogen/Creatinine [Mass ratio] 10.3 mg/mg Normal [facility] Comment on above: Performed By: #### P T, PTT #### [facility] [address] [place] [address] Dr. Gasper Garber URINE MICROSCOPIC ONLYon BACTERIA TRACE Abnormal NONE SEEN [facility] Comment on above: Performed By: #### Bernice HERNDON UMICRO #### [facility] [address] [place] [address] Dr. Gasper Garber Bacteria identified Cx Nom (U) NOT INDICATED Normal [facility] Comment on above: Performed By: #### E RUR UMICRO #### [facility] [address] [place] [address] Dr. Gasper Garber CAST NONE SEEN Normal NONE SEEN [facility] Comment on above: Performed By: #### Bernice HERNDON UMICRO #### [facility] [address] [place] [address] Dr. Gasper Garber Crystals LM Nom (Urine sed) NONE SEEN Normal NONE SEEN [facility] Comment on above: Performed By: #### Bernice HERNDON UMICRO #### [facility] [address] [address] [address] Gasper Garber Epithelial cells LM Ql (Urine sed) FEW Abnormal NONE SEEN /RARE [facility] Comment on above: Performed By: #### E YANICK UMICRO #### [facility] [address] [address] [address] Gasper Garber MUCOUS NONE SEEN Normal NONE SEEN [facility] Comment on above: Performed By: #### Bernice HERNDON, UMICRO #### [facility] [address] [address] [address] Gasper Garber RBC NONE SEEN Abnormal 0-2 [facility] Comment on above: Performed By: #### E YANICK UMICRO #### [facility] [address] [address] [address] Gasper Garber WBC 0-2 Abnormal NONE SEEN [facility] Comment on above: Performed By: #### Bernice HERNDON UMICRO #### [facility] [address] [place] [address] Dr. Gasper Garber CULTURE URINEon 08-19-2021 CULTURE URINE Culture Observations : Called to [facility] rn 08-19-21 @[id number] Culture Observations: METHICILLIN RESISTANT STAPH AUREUS ISOLATED. [...] C Oxacillin >=4 R C Normal [facility] Comment on above: Performed By: #### A CETON #### [facility] [address] [place] [address] Dr. Gasper Garber CBC AUTO DIFFon 06-28-2022 BASO # 0.0 103/ul Normal 0.0-0.1 [facility] Comment on above: Performed By: #### BERNIE MALDONADO #### [facility] [address] [place] [address] Dr. Gasper Garber Basophils/100 WBC (Bld) 0.4 % Normal 0.2-2.0 [facility] Comment on above: Performed By: #### TONI MALDONADORO #### [facility] [address] [place] [address] Dr. Gasper Garber EO # 0.1 103/ul Normal 0.0-0.7 [facility] Comment on above: Performed By: #### TONI MALDONADORO #### [facility] [address] [place] [address] Dr. Gasper Garber Eosinophils/100 WBC (Bld) 1.0 % Normal 0.9-7.0 [facility] Comment on above: Performed By: #### TONI MALDONADORO #### [facility] [address] [place] [address] Dr. Gasper Garber Erythrocyte distribution width (RBC) [Ratio] 12.5 % Normal 11.0-15.0 [facility] Comment on above: Performed By: #### TONI MALDONADORO #### [facility] [address] [place] [address] Dr. Gasper Garber Hematocrit (Bld) [Volume fraction] 35.3 % Critically low 36.0-48.0 [facility] Comment on above: Performed By: #### TONI MALDONADORO #### [facility] [address] [place] [address] Dr. Gasper Garebr Hemoglobin (Bld) [Mass/Vol] 11.7 g/dL Critically low 12.0-16.0 [facility] Comment on above: Performed By: #### TONI MALDONADORO #### [facility] [address] [place] [address] Dr. Gasper Garber IG # 0.03 10e3/ul Normal 0.00-0.03 [facility] Comment on above: Performed By: #### Bernice HERNDON UMICRO #### [facility] [address] [place] [address] Dr. Gasper Garber IG % 0.3 % Normal 0.0-0.5 [facility] Comment on above: Performed By: #### E YANICK UMICRO #### [facility] [address] [place] [address] Dr. Gasper Garber LYMPH # 0.9 103/ul Critically low 1.2-3.8 [facility] Comment on above: Performed By: #### E RUCrystal UMICRO #### [facility] [address] [place] [address] Dr. Gasper Garber Lymphocytes/100 WBC (Bld) 9.6 % Critically low 20.5-60.0 [facility] Comment on above: Performed By: #### Bernice HERNDON UMICRO #### [facility] [address] [place] [address] Dr. Gasper Garber MANUAL DIFF REQ NO Normal [facility] Comment on above: Performed By: #### Bernice HERNDON UMICRO #### [facility] [address] [place] [address] Dr. Gasper Garber MCH (RBC) [Entitic mass] 30.8 pg Normal 26.7-34.0 [facility] Comment on above: Performed By: #### Bernice HERNDON UMICRO #### [facility] [address] [place] [address] Dr. Gasper Garber MCHC (RBC) [Mass/Vol] 33.1 g/dL Normal 29.9-35.2 [facility] Comment on above: Performed By: #### E YAINCK UMICRO #### [facility] [address] [place] [address] Dr. Gasper Garber MCV (RBC) [Entitic vol] 92.9 fL Normal 81.0-99.0 [facility] Comment on above: Performed By: #### Bernice HERNDON, UMICRO #### [facility] [address] [place] [address] Dr. Gasper Garber MONO # 0.9 103/ul Critically high 0.3-0.8 [facility] Comment on above: Performed By: #### TONI MALDONADORO #### [facility] [address] [place] [address] Dr. Gasper Garber Monocytes/100 WBC (Bld) 9.3 % Normal 1.7-12.0 [facility] Comment on above: Performed By: #### TONI MALDONADORO #### [facility] [address] [place] [address] Dr. Gasper Garber NEUT # 7.7 103/ul Critically high 1.4-6.5 [facility] Comment on above: Performed By: #### TONI MALDONADORO #### [facility] [address] [place] [address] Dr. Gasper Garber Neutrophils/100 WBC (Bld) 79.4 % Critically high 43.0-75.0 [facility] Comment on above: Performed By: #### TONI MALDONADORO #### [facility] [address] [place] [address] Dr. Gasper Garber Platelet mean volume (Bld) [Entitic vol] 10.1 fL Normal 9.5-13.5 [facility] Comment on above: Performed By: #### TONI MALDONADORO #### [facility] [address] [place] [address] Dr. Gasper Garber PLT 302 103/ul Normal 150-450 [facility] Comment on above: Performed By: #### JOANNE MALDONADOICRO #### [facility] [address] [place] [address] Dr. Gasper Garber RBC 3.80 106/ul Critically low 4.20-5.40 [facility] Comment on above: Performed By: #### TONI MALDONADORO #### [facility] [address] [place] [address] Dr. Gasper Garber WBC 9.7 103/ul Normal 4.0-11.0 [facility] Comment on above: Performed By: #### E RUR, UMICRO #### [facility] [address] [address] [address] Gasper Garber ER URINE PROFILEon 2 Bilirubin Ql (U) Negative Normal NEGATIVE [facility] Comment on above: Performed By: #### U ARMICR #### [facility] [address] [address] [address] Gasper Garber Clarity (U) CLEAR Normal CLEAR [facility] Comment on above: Performed By: #### U ARMICR #### [facility] [address] [address] [address] Gasper Garber Color (U) LT. YELLOW Normal YELLOW [facility] Comment on above: Performed By: #### U ARMICR #### [facility] [address] [address] [address] Gasper Garber ERUAHD A micrscopic examina tion will be performed if indicated. Normal [facility] Comment on above: Performed By: #### U ARMICR #### [facility] [address] [place] [address] Dr. Gasper Garber Glucose Ql (U) Negative Normal NEGATIVE [facility] Comment on above: Performed By: #### U ARMICR #### [facility] [address] [address] [address] Gasper Garber Hemoglobin Ql (U) Negative Normal NEGATIVE [facility] Comment on above: Performed By: #### U ARMICR #### [facility] [address] [address] [address] Gasper Garber Ketones Ql (U) Negative Normal NEGATIVE [facility] Comment on above: Performed By: #### U ARMICR #### [facility] [address] [address] [address] Gasper Garber LEUKOCYTES MODERATE Abnormal NEGATIVE [facility] Comment on above: Performed By: #### U ARMICR #### [facility] [address] [place] [address] Dr. Gasper Garber Nitrite Ql (U) Negative Normal NEGATIVE [facility] Comment on above: Performed By: #### U ARMICR #### [facility] [address] [place] [address] Dr. Gasper Garber pH (U) 7.0 [pH] Normal 5-9 [facility] Comment on above: Performed By: #### U ARMICR #### [facility] [address] [place] [address] Dr. Gasper Garber SPEC GRAVITY 1.010 Normal 1.005-<=1.0 25 [facility] Comment on above: Performed By: #### U ARMICR #### [facility] [address] [place] [address] Dr. Gasper Garber UA PROTEIN Negative Normal NEGATIVE/ TRACE [facility] Comment on above: Performed By: #### U ARMICR #### [facility] [address] [place] [address] Dr. Gasper Garber UR MICRO IND INDICATED Normal [facility] Comment on above: Performed By: #### U ARMICR #### [facility] [address] [place] [address] Dr. Gasper Garber Urobilinogen Qn (U) 0.2 {Kaushik'U}/dL Normal 0.2 - 1. 0 [facility] Comment on above: Performed By: #### U ARMICR #### [facility] [address] [place] [address] Dr. Gasper Garber PROF 14(COMP METB)on 022 Albumin [Mass/Vol] 3.9 g/dL Normal 3.4-5.0 [facility] Comment on above: Performed By: #### P T, PTT #### [facility] [address] [place] [address] Dr. Gasper Garber Albumin/Globulin [Mass ratio] 1.2 {ratio} Normal [facility] Comment on above: Performed By: #### P T, PTT #### [facility] [address] [place] [address] Dr. Gasper Garber ALP [Catalytic activity/Vol] 70 U/L Normal 46-116 [facility] Comment on above: Performed By: #### P T, PTT #### [facility] [address] [address] [address] Gasper Garber ALT [Catalytic activity/Vol] 44 U/L Normal 14-59 [facility] Comment on above: Performed By: #### P T, PTT #### [facility] [address] [address] [address] Gasper Garber Anion gap [Moles/Vol] 17.7 mmol/L Normal [facility] Comment on above: Performed By: #### P T, PTT #### [facility] [address] [address] [address] Gasper Garber AST [Catalytic activity/Vol] 31 U/L Normal 15-37 [facility] Comment on above: Performed By: #### P T, PTT #### [facility] [address] [address] [address] Gasper Garber Bilirubin [Mass/Vol] 0.6 mg/dL Normal 0.2-1.0 [facility] Comment on above: Performed By: #### P T, PTT #### [facility] [address] [address] [address] Gasper Garber Calcium [Mass/Vol] 9.9 mg/dL Normal 8.5-10.1 [facility] Comment on above: Performed By: #### P T, PTT #### [facility] [address] [address] [address] Gasper Garber Chloride [Moles/Vol] 99 mmol/L Normal 98-107 [facility] Comment on above: Performed By: #### P T, PTT #### [facility] [address] [address] [address] Gasper Garber CO2 [Moles/Vol] 24.4 mmol/L Normal 21.0-32.0 [facility] Comment on above: Performed By: #### P T, PTT #### [facility] [address] [address] [address] Gasper Garber Creatinine [Mass/Vol] 3.08 mg/dL Critically high 0.55-1.02 [facility] Comment on above: Performed By: #### P T, PTT #### [facility] [address] [address] [address] Gasper Garber EGFR-AF MOLDOVAN 18 mL/min/1.73m2 Critically low >=60 [facility] Comment on above: Performed By: #### P T, PTT #### [facility] [address] [address] [address] Gasper Garber EGFR-NON AF MOLDOVAN 15 mL/min/1.73m2 Critically low >=60 [facility] Comment on above: Performed By: #### P T, PTT #### [facility] [address] [address] [address] Gasper Garber Globulin (S) [Mass/Vol] 3.2 g/dL Normal [facility] Comment on above: Performed By: #### P T, PTT #### [facility] [address] [place] [address] Dr. Gasper Garber Glucose [Mass/Vol] 158 mg/dL Critically high 74-106 [facility] Comment on above: Performed By: #### P T, PTT #### [facility] [address] [address] [address] Gasper Garber Potassium [Moles/Vol] 4.1 mmol/L Normal 3.5-5.1 [facility] Comment on above: Performed By: #### P T, PTT #### [facility] [address] [place] [address] Dr. Gasper Garber Protein [Mass/Vol] 7.1 g/dL Normal 6.4-8.2 [facility] Comment on above: Performed By: #### P T, PTT #### [facility] [address] [address] [address] Gasper Garber Sodium [Moles/Vol] 137 mmol/L Normal 136-145 [facility] Comment on above: Performed By: #### P T, PTT #### [facility] [address] [address] [address] Gasper Garber Urea nitrogen [Mass/Vol] 48.0 mg/dL Critically high 7.0-18.0 [facility] Comment on above: Performed By: #### P T, PTT #### [facility] [address] [place] [address] Dr. Gasper Garber Urea nitrogen/Creatinine [Mass ratio] 15.6 mg/mg Normal [facility] Comment on above: Performed By: #### P T, PTT #### [facility] [address] [place] [address] Dr. Gasper Garber TROPONIN, HIGH SENSITIVITYon 08-16-2021 HSTROP 15.7 pg/mL Normal 4.0-51.3 [facility] Comment on above: Result Comment: CUT- OFF POINTS HAVE BEEN ESTABLISHED BASED ON THE FOURTH UNIVERSAL DEFINITIONS OF MYOCARDIAL INFARCTION. THE UPPER REFERENCE LIMIT (URL) OF TROPONIN, DEFINED THE 99TH PERCENTILE OF cTnI DISTRIBUTION IN A REFERENCE POPULATION, HAS BEEN CONFIRMED THE DECISION THRESHOLD FOR OR DIAGNOSIS. Performed By: #### P T, PTT #### [facility] [address] [place] [address] Dr. Gasper Garber URINE MICROSCOPIC ONLYon BACTERIA TRACE Abnormal NONE SEEN [facility] Comment on above: Performed By: #### U ARMICR #### [facility] [address] [place] [address] Dr. Gasper Garber Bacteria identified Cx Nom (U) INDICATED Normal [facility] Comment on above: Performed By: #### U ARMICR #### [facility] [address] [place] [address] Dr. Gasper Garber CAST NONE SEEN Normal NONE SEEN [facility] Comment on above: Performed By: #### U ARMICR #### [facility] [address] [place] [address] Dr. Gasper Garber Crystals LM Nom (Urine sed) NONE SEEN Normal NONE SEEN [facility] Comment on above: Performed By: #### U ARMICR #### [facility] [address] [place] [address] Dr. Gasper Garber Epithelial cells LM Ql (Urine sed) FEW Abnormal NONE SEEN /RARE [facility] Comment on above: Performed By: #### U ARMICR #### [facility] [address] [place] [address] Dr. Gasper Garber MUCOUS NONE SEEN Normal NONE SEEN [facility] Comment on above: Performed By: #### U ARMICR #### [facility] [address] [address] [address] Gasper Garber RBC 0-2 Normal 0-2 [facility] Comment on above: Performed By: #### U ARMICR #### [facility] [address] [address] [address] Gasper Garber WBC 10-20 Abnormal NONE SEEN [facility] Comment on above: Performed By: #### U ARMICR #### [facility] [address] [address] [address] Gasper Garber PROF CHEM 8 (BAS METB)on Anion gap [Moles/Vol] 13.5 mmol/L Normal [facility] Comment on above: Performed By: #### P T, PTT #### [facility] [address] [place] [address] Dr. Gasper Garber Calcium [Mass/Vol] 9.6 mg/dL Normal 8.5-10.1 [facility] Comment on above: Performed By: #### P T, PTT #### [facility] [address] [address] [address] Gasper Garber Chloride [Moles/Vol] 102 mmol/L Normal 98-107 [facility] Comment on above: Performed By: #### P T, PTT #### [facility] [address] [place] [address] Dr. Gasper Garber CO2 [Moles/Vol] 29.0 mmol/L Normal 21.0-32.0 [facility] Comment on above: Performed By: #### P T, PTT #### [facility] [address] [address] [address] Gasper Garber Creatinine [Mass/Vol] 2.05 mg/dL Critically high 0.55-1.02 [facility] Comment on above: Performed By: #### P T, PTT #### [facility] [address] [address] [address] Gasper Garber EGFR-AF MOLDOVAN 29 mL/min/1.73m2 Critically low >=60 [facility] Comment on above: Performed By: #### P T, PTT #### [facility] [address] [address] [address] Gasper Garber EGFR-NON AF MOLDOVAN 24 mL/min/1.73m2 Critically low >=60 [facility] Comment on above: Performed By: #### P T, PTT #### [facility] [address] [place] [address] Dr. Gasper Garber Glucose [Mass/Vol] 203 mg/dL Critically high 74-106 [facility] Comment on above: Performed By: #### P T, PTT #### [facility] [address] [place] [address] Dr. Gasper Garber Potassium [Moles/Vol] 4.5 mmol/L Normal 3.5-5.1 [facility] Comment on above: Performed By: #### P T, PTT #### [facility] [address] [place] [address] Dr. Gasper Garber Sodium [Moles/Vol] 140 mmol/L Normal 136-145 [facility] Comment on above: Performed By: #### P T, PTT #### [facility] [address] [place] [address] Dr. Gasper Garber Urea nitrogen [Mass/Vol] 34.0 mg/dL Critically high 7.0-18.0 [facility] Comment on above: Performed By: #### P T, PTT #### [facility] [address] [place] [address] Dr. Gasper Garber Urea nitrogen/Creatinine [Mass ratio] 16.6 mg/mg Normal [facility] Comment on above: Performed By: #### P T, PTT #### [facility] [address] [place] [address] Dr. Gasper Garber BNPon 07-27-2021 Natriuretic peptide B (Bld) [Mass/Vol] 1454.0 pg/mL Critically high <=900.0 [facility] Comment on above: Performed By: #### BERNIE MALDONADO #### [facility] [address] [place] [address] Dr. Gasper Garber CBC AUTO DIFFon 07-27-2021 BASO # 0.1 103/ul Normal 0.0-0.1 [facility] Comment on above: Performed By: #### E YANICK UMICRO #### [facility] [address] [place] [address] Dr. Gasper Garber Basophils/100 WBC (Bld) 0.7 % Normal 0.2-2.0 [facility] Comment on above: Performed By: #### E YANICK, UMICRO #### [facility] [address] [place] [address] Dr. Gasper Garber EO # 0.3 103/ul Normal 0.0-0.7 [facility] Comment on above: Performed By: #### Bernice HERNDON, UMICRO #### [facility] [address] [place] [address] Dr. Gasper Garber Eosinophils/100 WBC (Bld) 4.3 % Normal 0.9-7.0 [facility] Comment on above: Performed By: #### Bernice HERNDON UMICRO #### [facility] [address] [place] [address] Dr. Gasper Garber Erythrocyte distribution width (RBC) [Ratio] 13.0 % Normal 11.0-15.0 [facility] Comment on above: Performed By: #### Bernice HERNDON, UMICRO #### [facility] [address] [place] [address] Dr. Gasper Garber Hematocrit (Bld) [Volume fraction] 34.5 % Critically low 36.0-48.0 [facility] Comment on above: Performed By: #### Bernice HERNDON, UMICRO #### [facility] [address] [place] [address] Dr. Gasper Garber Hemoglobin (Bld) [Mass/Vol] 11.0 g/dL Critically low 12.0-16.0 [facility] Comment on above: Performed By: #### Bernice HERNDON, UMICRO #### [facility] [address] [place] [address] Dr. Gasper Garber IG # 0.02 10e3/ul Normal 0.00-0.03 [facility] Comment on above: Performed By: #### BERNIE MALDONADO #### [facility] [address] [place] [address] Dr. Gasper Garber IG % 0.3 % Normal 0.0-0.5 [facility] Comment on above: Performed By: #### TONI MALDONADORO #### [facility] [address] [place] [address] Dr. Gasper Garber LYMPH # 1.1 103/ul Critically low 1.2-3.8 [facility] Comment on above: Performed By: #### BERNIE MALDONADO #### [facility] [address] [place] [address] Dr. Gasper Garber Lymphocytes/100 WBC (Bld) 14.3 % Critically low 20.5-60.0 [facility] Comment on above: Performed By: #### TONI MALDONADORO #### [facility] [address] [place] [address] Dr. Gasper Garber MANUAL DIFF REQ NO Normal [facility] Comment on above: Performed By: #### BERNIE MALDONADO #### [facility] [address] [place] [address] Dr. Gasper Garber MCH (RBC) [Entitic mass] 30.9 pg Normal 26.7-34.0 [facility] Comment on above: Performed By: #### TONI MALDONADORO #### [facility] [address] [place] [address] Dr. Gasper Garber MCHC (RBC) [Mass/Vol] 31.9 g/dL Normal 29.9-35.2 [facility] Comment on above: Performed By: #### TONI MALDONADORO #### [facility] [address] [place] [address] Dr. Gasper Garber MCV (RBC) [Entitic vol] 96.9 fL Normal 81.0-99.0 [facility] Comment on above: Performed By: #### TONI MALDONADORO #### [facility] [address] [address] [address] Gasper Garber MONO # 0.7 103/ul Normal 0.3-0.8 [facility] Comment on above: Performed By: #### Bernice HERNDON UMICRO #### [facility] [address] [place] [address] Dr. Gasper Garber Monocytes/100 WBC (Bld) 9.3 % Normal 1.7-12.0 [facility] Comment on above: Performed By: #### Bernice HERNDON UMICRO #### [facility] [address] [place] [address] Dr. Gasper Garber NEUT # 5.4 103/ul Normal 1.4-6.5 [facility] Comment on above: Performed By: #### Bernice HERNDON UMICRO #### [facility] [address] [place] [address] Dr. Gasper Garber Neutrophils/100 WBC (Bld) 71.1 % Normal 43.0-75.0 [facility] Comment on above: Performed By: #### Bernice HERNDON ICRO #### [facility] [address] [place] [address] Dr. Gasper Garber Platelet mean volume (Bld) [Entitic vol] 10.2 fL Normal 9.5-13.5 [facility] Comment on above: Performed By: #### Bernice HERNDON ICRO #### [facility] [address] [place] [address] Dr. Gasper Garber PLT 284 103/ul Normal 150-450 [facility] Comment on above: Performed By: #### Bernice HERNDON UMICRO #### [facility] [address] [place] [address] Dr. Gasper Garber RBC 3.56 106/ul Critically low 4.20-5.40 [facility] Comment on above: Performed By: #### Bernice HERNDON UMICRO #### [facility] [address] [place] [address] Dr. Gasper Garber WBC 7.6 103/ul Normal 4.0-11.0 [facility] Comment on above: Performed By: #### TONI MALDONADORO #### [facility] [address] [address] [address] Gasper Garber PROF CHEM 8 (BAS METB)on Anion gap [Moles/Vol] 15.3 mmol/L Normal [facility] Comment on above: Performed By: #### TONI MALDONADORO #### [facility] [address] [address] [address] Gasper Garber Calcium [Mass/Vol] 9.1 mg/dL Normal 8.5-10.1 [facility] Comment on above: Performed By: #### TONI MALDONADORO #### [facility] [address] [place] [address] Dr. Gasper Garber Chloride [Moles/Vol] 100 mmol/L Normal 98-107 [facility] Comment on above: Performed By: #### TONI MALDONADORO #### [facility] [address] [place] [address] Dr. Gasper Garber CO2 [Moles/Vol] 26.8 mmol/L Normal 21.0-32.0 [facility] Comment on above: Performed By: #### TONI MALDONADORO #### [facility] [address] [place] [address] Dr. Gasper Garber Creatinine [Mass/Vol] 2.83 mg/dL Critically high 0.55-1.02 [facility] Comment on above: Performed By: #### TONI MALDONADORO #### [facility] [address] [place] [address] Dr. Gasper Garber EGFR-AF MOLDOVAN 20 mL/min/1.73m2 Critically low >=60 [facility] Comment on above: Performed By: #### TONI MALDONADORO #### [facility] [address] [place] [address] Dr. Gasper Garber EGFR-NON AF MOLDOVAN 16 mL/min/1.73m2 Critically low >=60 [facility] Comment on above: Performed By: #### E RUR, UMICRO #### [facility] [address] [place] [address] Dr. Gasper Garber Glucose [Mass/Vol] 141 mg/dL Critically high 74-106 [facility] Comment on above: Performed By: #### E MINR, UMICRO #### [facility] [address] [place] [address] Dr. Gasper Garber Potassium [Moles/Vol] 4.1 mmol/L Normal 3.5-5.1 [facility] Comment on above: Performed By: #### E YANICK, UMICRO #### [facility] [address] [place] [address] Dr. Gasper Garber Sodium [Moles/Vol] 138 mmol/L Normal 136-145 [facility] Comment on above: Performed By: #### Bernice HERNDON, UMICRO #### [facility] [address] [place] [address] Dr. Gasper Garber Urea nitrogen [Mass/Vol] 48.0 mg/dL Critically high 7.0-18.0 [facility] Comment on above: Performed By: #### Bernice HERNDON, UMICRO #### [facility] [address] [place] [address] Dr. Gasper Garber Urea nitrogen/Creatinine [Mass ratio] 17.0 mg/mg Normal [facility] Comment on above: Performed By: #### Bernice HERNDON, UMICRO #### [facility] [address] [place] [address] Dr. Gasper Garber CULTURE URINEon 07-18-2021 CULTURE [...] Trimethoprim/Sulfamethoxazo le <=20 S F Normal [facility] Comment on above: Performed By: #### A CETON #### [facility] [address] [place] [address] Dr. Gasper Garber BNPon 07-17-2021 Natriuretic peptide B (Bld) [Mass/Vol] 2592.0 pg/mL Critically high <=900.0 [facility] Comment on above: Performed By: #### U RCX #### [facility] [address] [place] [address] Dr. Gasper Garber CBC AUTO DIFFon 07-17-2021 BASO # 0.0 103/ul Normal 0.0-0.1 [facility] Comment on above: Performed By: #### L ACT #### [facility] [address] [place] [address] Dr. Gasper Garber Basophils/100 WBC (Bld) 0.4 % Normal 0.2-2.0 [facility] Comment on above: Performed By: #### L ACT #### [facility] [address] [place] [address] Dr. Gasper Garber EO # 0.3 103/ul Normal 0.0-0.7 [facility] Comment on above: Performed By: #### L ACT #### [facility] [address] [place] [address] Dr. Gasper Garber Eosinophils/100 WBC (Bld) 4.3 % Normal 0.9-7.0 [facility] Comment on above: Performed By: #### L ACT #### [facility] [address] [place] [address] Dr. Gasper Garber Erythrocyte distribution width (RBC) [Ratio] 12.5 % Normal 11.0-15.0 [facility] Comment on above: Performed By: #### L ACT #### [facility] [address] [place] [address] Dr. Gasper Garber Hematocrit (Bld) [Volume fraction] 30.3 % Critically low 36.0-48.0 [facility] Comment on above: Performed By: #### L ACT #### [facility] [address] [address] [address] Gasper Garber Hemoglobin (Bld) [Mass/Vol] 9.8 g/dL Critically low 12.0-16.0 [facility] Comment on above: Performed By: #### L ACT #### [facility] [address] [address] [address] Gasper Garber IG # 0.02 10e3/ul Normal 0.00-0.03 [facility] Comment on above: Performed By: #### L ACT #### [facility] [address] [address] [address] Gasper Garber IG % 0.3 % Normal 0.0-0.5 [facility] Comment on above: Performed By: #### L ACT #### [facility] [address] [place] [address] Dr. Gasper Garber LYMPH # 1.5 103/ul Normal 1.2-3.8 [facility] Comment on above: Performed By: #### L ACT #### [facility] [address] [place] [address] Dr. Gasper Garber Lymphocytes/100 WBC (Bld) 19.8 % Critically low 20.5-60.0 [facility] Comment on above: Performed By: #### L ACT #### [facility] [address] [place] [address] Dr. Gasper Garber MANUAL DIFF REQ NO Normal [facility] Comment on above: Performed By: #### L ACT #### [facility] [address] [place] [address] Dr. Gasper Garber MCH (RBC) [Entitic mass] 31.3 pg Normal 26.7-34.0 [facility] Comment on above: Performed By: #### L ACT #### [facility] [address] [place] [address] Dr. Gasper Garber MCHC (RBC) [Mass/Vol] 32.3 g/dL Normal 29.9-35.2 [facility] Comment on above: Performed By: #### L ACT #### [facility] [address] [address] [address] Gasper Garber MCV (RBC) [Entitic vol] 96.8 fL Normal 81.0-99.0 [facility] Comment on above: Performed By: #### L ACT #### [facility] [address] [address] [address] Gasper Garber MONO # 0.9 103/ul Critically high 0.3-0.8 [facility] Comment on above: Performed By: #### L ACT #### [facility] [address] [address] [address] Gasper Garber Monocytes/100 WBC (Bld) 11.7 % Normal 1.7-12.0 [facility] Comment on above: Performed By: #### L ACT #### [facility] [address] [place] [address] Dr. Gasper Garber NEUT # 4.8 103/ul Normal 1.4-6.5 [facility] Comment on above: Performed By: #### L ACT #### [facility] [address] [place] [address] Dr. Gasper Garber Neutrophils/100 WBC (Bld) 63.5 % Normal 43.0-75.0 [facility] Comment on above: Performed By: #### L ACT #### [facility] [address] [place] [address] Dr. Gasper Garber Platelet mean volume (Bld) [Entitic vol] 10.9 fL Normal 9.5-13.5 [facility] Comment on above: Performed By: #### L ACT #### [facility] [address] [place] [address] Dr. Gasper Garber PLT 193 103/ul Normal 150-450 [facility] Comment on above: Performed By: #### L ACT #### [facility] [id number] Gasper Garber RBC 3.13 106/ul Critically low 4.20-5.40 [facility] Comment on above: Performed By: #### L ACT #### [facility] [address] [address] [address] Gasper Garber WBC 7.5 103/ul Normal 4.0-11.0 [facility] Comment on above: Performed By: #### L ACT #### [facility] [address] [place] [address] Dr. Gasper Garber POINT OF CARE GLUCOSEon 06-20 Glucose [Mass/Vol] 244 mg/dL Critically high 74-106 [facility] Comment on above: Performed By: #### L ACT #### [facility] [address] [place] [address] Dr. Gasper Garber Glucose [Mass/Vol] 151 mg/dL Critically high 74-106 [facility] Comment on above: Performed By: #### E BERNIE HERNDON #### [facility] [address] [place] [address] Dr. Gasper Garber PROF 14(COMP METB)on 022 Albumin [Mass/Vol] 2.9 g/dL Critically low 3.4-5.0 [facility] Comment on above: Performed By: #### U RCX #### [facility] [address] [place] [address] Dr. Gasper Garber Albumin/Globulin [Mass ratio] 1.0 {ratio} Normal [facility] Comment on above: Performed By: #### U RCX #### [facility] [address] [place] [address] Dr. Gasper Garber ALP [Catalytic activity/Vol] 63 U/L Normal 46-116 [facility] Comment on above: Performed By: #### U RCX #### [facility] [address] [place] [address] Dr. Gasper Garber ALT [Catalytic activity/Vol] 33 U/L Normal 14-59 [facility] Comment on above: Performed By: #### U RCX #### [facility] [address] [place] [address] Dr. Gaspre Garber Anion gap [Moles/Vol] 13.1 mmol/L Normal [facility] Comment on above: Performed By: #### U RCX #### [facility] [address] [address] [address] Gasper Garber AST [Catalytic activity/Vol] 30 U/L Normal 15-37 [facility] Comment on above: Performed By: #### U RCX #### [facility] [address] [address] [address] Gasper Garber Bilirubin [Mass/Vol] 0.3 mg/dL Normal 0.2-1.0 [facility] Comment on above: Performed By: #### U RCX #### [facility] [address] [address] [address] Gasper Garber Calcium [Mass/Vol] 8.7 mg/dL Normal 8.5-10.1 [facility] Comment on above: Performed By: #### U RCX #### [facility] [address] [address] [address] Gasper Garber Chloride [Moles/Vol] 109 mmol/L Critically high 98-107 [facility] Comment on above: Performed By: #### U RCX #### [facility] [address] [address] [address] Gasper Garber CO2 [Moles/Vol] 24.5 mmol/L Normal 21.0-32.0 [facility] Comment on above: Performed By: #### U RCX #### [facility] [address] [place] [address] Dr. Gasper Garber Creatinine [Mass/Vol] 1.33 mg/dL Critically high 0.55-1.02 [facility] Comment on above: Performed By: #### U RCX #### [facility] [address] [address] [address] Gasper Garber EGFR-AF MOLDOVAN 47 mL/min/1.73m2 Critically low >=60 [facility] Comment on above: Performed By: #### U RCX #### [facility] [address] [address] [address] Gasper Garber EGFR-NON AF MOLDOVAN 39 mL/min/1.73m2 Critically low >=60 [facility] Comment on above: Performed By: #### U RCX #### [facility] [address] [address] [address] Gasper Garber Globulin (S) [Mass/Vol] 3.0 g/dL Normal [facility] Comment on above: Performed By: #### U RCX #### [facility] [address] [place] [address] Dr. Gasper Garber Glucose [Mass/Vol] 142 mg/dL Critically high 74-106 [facility] Comment on above: Performed By: #### U RCX #### [facility] [address] [address] [address] Gasper Garber Potassium [Moles/Vol] 3.6 mmol/L Normal 3.5-5.1 [facility] Comment on above: Performed By: #### U RCX #### [facility] [address] [place] [address] Dr. Gasper Garber Protein [Mass/Vol] 5.9 g/dL Critically low 6.4-8.2 [facility] Comment on above: Performed By: #### U RCX #### [facility] [address] [place] [address] Dr. Gasper Garber Sodium [Moles/Vol] 143 mmol/L Normal 136-145 [facility] Comment on above: Performed By: #### U RCX #### [facility] [address] [place] [address] Dr. Gasper Garber Urea nitrogen [Mass/Vol] 25.0 mg/dL Critically high 7.0-18.0 [facility] Comment on above: Performed By: #### U RCX #### [facility] [address] [place] [address] Dr. Gasper Garber Urea nitrogen/Creatinine [Mass ratio] 18.8 mg/mg Normal [facility] Comment on above: Performed By: #### U RCX #### [facility] [address] [place] [address] Dr. Gasper Garber BNPon 07-16-2021 Natriuretic peptide B (Bld) [Mass/Vol] 761.0 pg/mL Normal <=900.0 [facility] Comment on above: Performed By: #### P T, PTT #### [facility] [address] [place] [address] Dr. Gasper Garber CBC AUTO DIFFon 07-16-2021 BASO # 0.1 103/ul Normal 0.0-0.1 [facility] Comment on above: Performed By: #### L ACT #### [facility] [address] [place] [address] Dr. Gasper Garber Basophils/100 WBC (Bld) 0.6 % Normal 0.2-2.0 [facility] Comment on above: Performed By: #### L ACT #### [facility] [address] [place] [address] Dr. Gasper Garber EO # 0.2 103/ul Normal 0.0-0.7 [facility] Comment on above: Performed By: #### L ACT #### [facility] [address] [place] [address] Dr. Gasper Garber Performed By: #### P T, PTT #### [facility] [address] [place] [address] Dr. Gasper Garber Eosinophils/100 WBC (Bld) 2.3 % Normal 0.9-7.0 [facility] Comment on above: Performed By: #### L ACT #### [facility] [address] [place] [address] Dr. Gasper Garber Erythrocyte distribution width (RBC) [Ratio] 12.3 % Normal 11.0-15.0 [facility] Comment on above: Performed By: #### L ACT #### [facility] [address] [place] [address] Dr. Gasper Garber Hematocrit (Bld) [Volume fraction] 32.3 % Critically low 36.0-48.0 [facility] Comment on above: Performed By: #### L ACT #### [facility] [address] [place] [address] Dr. Gasper Garber Hemoglobin (Bld) [Mass/Vol] 10.3 g/dL Critically low 12.0-16.0 [facility] Comment on above: Performed By: #### L ACT #### [facility] [address] [place] [address] Dr. Gasper Garber IG # 0.01 10e3/ul Normal 0.00-0.03 [facility] Comment on above: Performed By: #### L ACT #### [facility] [address] [place] [address] Dr. Gasper Garber IG % 0.1 % Normal 0.0-0.5 [facility] Comment on above: Performed By: #### L ACT #### [facility] [address] [place] [address] Dr. Gasper Garber LYMPH # 1.1 103/ul Critically low 1.2-3.8 [facility] Comment on above: Performed By: #### L ACT #### [facility] [address] [place] [address] Dr. Gasper Garber Lymphocytes/100 WBC (Bld) 12.2 % Critically low 20.5-60.0 [facility] Comment on above: Performed By: #### L ACT #### [facility] [address] [place] [address] Dr. Gasper Garber MANUAL DIFF REQ NO Normal [facility] Comment on above: Performed By: #### L ACT #### [facility] [address] [place] [address] Dr. Gasper Garber Performed By: #### P T, PTT #### [facility] [address] [place] [address] Dr. Gasper Garber MCH (RBC) [Entitic mass] 30.8 pg Normal 26.7-34.0 [facility] Comment on above: Performed By: #### L ACT #### [facility] [address] [place] [address] Dr. Gasper Garber MCHC (RBC) [Mass/Vol] 31.9 g/dL Normal 29.9-35.2 [facility] Comment on above: Performed By: #### L ACT #### [facility] [address] [place] [address] Dr. Gasper Garber MCV (RBC) [Entitic vol] 96.7 fL Normal 81.0-99.0 [facility] Comment on above: Performed By: #### L ACT #### [facility] [address] [address] [address] Gasper Garber MONO # 0.8 103/ul Normal 0.3-0.8 [facility] Comment on above: Performed By: #### L ACT #### [facility] [address] [address] [address] Gasper Garber Monocytes/100 WBC (Bld) 8.8 % Normal 1.7-12.0 [facility] Comment on above: Performed By: #### L ACT #### [facility] [address] [address] [address] Gasper Garber NEUT # 6.5 103/ul Normal 1.4-6.5 [facility] Comment on above: Performed By: #### L ACT #### [facility] [address] [address] [address] Gasper Graber Neutrophils/100 WBC (Bld) 76.0 % Critically high 43.0-75.0 [facility] Comment on above: Performed By: #### L ACT #### [facility] [address] [address] [address] Gasper Garber Platelet mean volume (Bld) [Entitic vol] 10.6 fL Normal 9.5-13.5 [facility] Comment on above: Performed By: #### L ACT #### [facility] [address] [address] [address] Gasper Garber PLT 214 103/ul Normal 150-450 [facility] Comment on above: Performed By: #### L ACT #### [facility] [address] [address] [address] Gasper Garber RBC 3.34 106/ul Critically low 4.20-5.40 [facility] Comment on above: Performed By: #### L ACT #### [facility] [address] [address] [address] Gasper Garber WBC 8.6 103/ul Normal 4.0-11.0 [facility] Comment on above: Performed By: #### L ACT #### [facility] [address] [place] [address] Dr. Gasper Garber BASO # 0.0 103/ul Normal 0.0-0.1 [facility] Comment on above: Performed By: #### P T, PTT #### [facility] [address] [place] [address] Dr. Gasper Garber Basophils/100 WBC (Bld) 0.4 % Normal 0.2-2.0 [facility] Comment on above: Performed By: #### P T, PTT #### [facility] [address] [place] [address] Dr. Gasper Garber Eosinophils/100 WBC (Bld) 2.5 % Normal 0.9-7.0 [facility] Comment on above: Performed By: #### P T, PTT #### [facility] [address] [place] [address] Dr. Gasper Garber Erythrocyte distribution width (RBC) [Ratio] 12.4 % Normal 11.0-15.0 [facility] Comment on above: Performed By: #### P T, PTT #### [facility] [address] [place] [address] Dr. Gasper Garber Hematocrit (Bld) [Volume fraction] 29.3 % Critically low 36.0-48.0 [facility] Comment on above: Performed By: #### P T, PTT #### [facility] [address] [place] [address] Dr. Gasper Garber Hemoglobin (Bld) [Mass/Vol] 9.5 g/dL Critically low 12.0-16.0 [facility] Comment on above: Performed By: #### P T, PTT #### [facility] [address] [place] [address] Dr. Gasper Garber IG # 0.02 10e3/ul Normal 0.00-0.03 [facility] Comment on above: Performed By: #### P T, PTT #### [facility] [address] [place] [address] Dr. Gasper Garber IG % 0.2 % Normal 0.0-0.5 [facility] Comment on above: Performed By: #### P T, PTT #### [facility] [address] [place] [address] Dr. Gasper Garber LYMPH # 1.3 103/ul Normal 1.2-3.8 [facility] Comment on above: Performed By: #### P T, PTT #### [facility] [address] [place] [address] Dr. Gasper Garber Lymphocytes/100 WBC (Bld) 16.4 % Critically low 20.5-60.0 [facility] Comment on above: Performed By: #### P T, PTT #### [facility] [address] [place] [address] Dr. Gasper Garber MCH (RBC) [Entitic mass] 31.3 pg Normal 26.7-34.0 [facility] Comment on above: Performed By: #### P T, PTT #### [facility] [address] [place] [address] Dr. Gasper Garber MCHC (RBC) [Mass/Vol] 32.4 g/dL Normal 29.9-35.2 [facility] Comment on above: Performed By: #### P T, PTT #### [facility] [address] [place] [address] Dr. Gasper Garber MCV (RBC) [Entitic vol] 96.4 fL Normal 81.0-99.0 [facility] Comment on above: Performed By: #### P T, PTT #### [facility] [address] [place] [address] Dr. Gasper Garber MONO # 0.9 103/ul Critically high 0.3-0.8 [facility] Comment on above: Performed By: #### P T, PTT #### [facility] [address] [place] [address] Dr. Gasper Garber Monocytes/100 WBC (Bld) 10.5 % Normal 1.7-12.0 [facility] Comment on above: Performed By: #### P T, PTT #### [facility] [address] [place] [address] Dr. Gasper Garber NEUT # 5.7 103/ul Normal 1.4-6.5 [facility] Comment on above: Performed By: #### P T, PTT #### [facility] [address] [place] [address] Dr. Gasper Garber Neutrophils/100 WBC (Bld) 70.0 % Normal 43.0-75.0 [facility] Comment on above: Performed By: #### P T, PTT #### [facility] [address] [place] [address] Dr. Gasper Garber Platelet mean volume (Bld) [Entitic vol] 10.9 fL Normal 9.5-13.5 [facility] Comment on above: Performed By: #### P T, PTT #### [facility] [address] [place] [address] Dr. Gasper Garber PLT 203 103/ul Normal 150-450 [facility] Comment on above: Performed By: #### P T, PTT #### [facility] [address] [place] [address] Dr. Gasper Garber RBC 3.04 106/ul Critically low 4.20-5.40 [facility] Comment on above: Performed By: #### P T, PTT #### [facility] [address] [place] [address] Dr. Gasper Garber WBC 8.2 103/ul Normal 4.0-11.0 [facility] Comment on above: Performed By: #### P T, PTT #### [facility] [address] [place] [address] Dr. Gasper Garber CULTURE BLOODon 07-16-2021 Microscopic examination of blood, culture Culture Observations: NO GROWTH AT 5 DAYS. Normal [facility] Comment on above: Performed By: #### B [id number] #### [facility] [address] [place] [address] Dr. Gasper Garber Microscopic examination of blood, culture Culture Observations: NO GROWTH AT 5 DAYS. [facility] Comment on above: Performed By: #### A CETON #### [facility] [address] [place] [address] Dr. Gasper Garber POINT OF CARE GLUCOSEon 05-2022 Glucose [Mass/Vol] 155 mg/dL Critically high 74-106 [facility] Comment on above: Performed By: #### P T, PTT #### [facility] [address] [address] [address] Gasper Garber Glucose [Mass/Vol] 165 mg/dL Critically high 74-106 [facility] Comment on above: Performed By: #### P OCGLUC #### [facility] [address] [address] [address] Gasper Garber Glucose [Mass/Vol] 232 mg/dL Critically high 74-106 [facility] Comment on above: Performed By: #### E BERNIE HERNDON #### [facility] [address] [place] [address] Dr. Gasper Garber PROF 14(COMP METB)on 022 Albumin [Mass/Vol] 2.9 g/dL Critically low 3.4-5.0 [facility] Comment on above: Performed By: #### P T, PTT #### [facility] [address] [place] [address] Dr. Gasper Garber Albumin/Globulin [Mass ratio] 1.0 {ratio} [facility] Comment on above: Performed By: #### P T, PTT #### [facility] [address] [place] [address] Dr. Gasper Garber ALP [Catalytic activity/Vol] 62 U/L Normal 46-116 [facility] Comment on above: Performed By: #### P T, PTT #### [facility] [address] [place] [address] Dr. Gasper Garber ALT [Catalytic activity/Vol] 34 U/L Normal 14-59 [facility] Comment on above: Performed By: #### P T, PTT #### [facility] [address] [place] [address] Dr. Gasper Garber Anion gap [Moles/Vol] 10.8 mmol/L Normal [facility] Comment on above: Performed By: #### P T, PTT #### [facility] [address] [address] [address] Gasper Garber AST [Catalytic activity/Vol] 14 U/L Critically low 15-37 [facility] Comment on above: Performed By: #### P T, PTT #### [facility] [address] [place] [address] Dr. Gasper Garber Bilirubin [Mass/Vol] 0.4 mg/dL Normal 0.2-1.0 [facility] Comment on above: Performed By: #### P T, PTT #### [facility] [address] [place] [address] Dr. Gasper Garber Calcium [Mass/Vol] 8.4 mg/dL Critically low 8.5-10.1 [facility] Comment on above: Performed By: #### P T, PTT #### [facility] [address] [place] [address] Dr. Gasper Garber Chloride [Moles/Vol] 105 mmol/L Normal 98-107 [facility] Comment on above: Performed By: #### P T, PTT #### [facility] [address] [place] [address] Dr. Gasper Garber CO2 [Moles/Vol] 26.3 mmol/L Normal 21.0-32.0 [facility] Comment on above: Performed By: #### P T, PTT #### [facility] [address] [place] [address] Dr. Gasper Garber Creatinine [Mass/Vol] 2.20 mg/dL Critically high 0.55-1.02 [facility] Comment on above: Performed By: #### P T, PTT #### [facility] [address] [place] [address] Dr. Gasper Garber EGFR-AF MOLDOVAN 26 mL/min/1.73m2 Critically low >=60 [facility] Comment on above: Performed By: #### P T, PTT #### [facility] [address] [place] [address] Dr. Gasper Garber EGFR-NON AF MOLDOVAN 22 mL/min/1.73m2 Critically low >=60 [facility] Comment on above: Performed By: #### P T, PTT #### [facility] [address] [place] [address] Dr. Gasper Garber Globulin (S) [Mass/Vol] 2.9 g/dL Normal [facility] Comment on above: Performed By: #### P T, PTT #### [facility] [address] [place] [address] Dr. Gasper Garber Glucose [Mass/Vol] 167 mg/dL Critically high 74-106 [facility] Comment on above: Performed By: #### P T, PTT #### [facility] [address] [place] [address] Dr. Gasper Garber Potassium [Moles/Vol] 3.1 mmol/L Critically low 3.5-5.1 [facility] Comment on above: Performed By: #### P T, PTT #### [facility] [address] [place] [address] Dr. Gasper Garber Protein [Mass/Vol] 5.8 g/dL Critically low 6.4-8.2 [facility] Comment on above: Performed By: #### P T, PTT #### [facility] [address] [place] [address] Dr. Gasper Garber Sodium [Moles/Vol] 139 mmol/L Normal 136-145 [facility] Comment on above: Performed By: #### P T, PTT #### [facility] [address] [place] [address] Dr. Gasper Garber Urea nitrogen [Mass/Vol] 41.0 mg/dL Critically high 7.0-18.0 [facility] Comment on above: Performed By: #### P T, PTT #### [facility] [address] [place] [address] Dr. Gasper Garber Urea nitrogen/Creatinine [Mass ratio] 18.6 mg/mg Normal [facility] Comment on above: Performed By: #### P T, PTT #### [facility] [address] [place] [address] Dr. Gasper Garber CBC AUTO DIFFon 07-15-2021 BASO # 0.0 103/ul Normal 0.0-0.1 [facility] Comment on above: Performed By: #### P T, PTT #### [facility] [address] [place] [address] Dr. Gasper Garber Basophils/100 WBC (Bld) 0.4 % Normal 0.2-2.0 [facility] Comment on above: Performed By: #### P T, PTT #### [facility] [address] [place] [address] Dr. Gasper Garber EO # 0.2 103/ul Normal 0.0-0.7 [facility] Comment on above: Performed By: #### P T, PTT #### [facility] [address] [place] [address] Dr. Gasper Garber Eosinophils/100 WBC (Bld) 1.6 % Normal 0.9-7.0 [facility] Comment on above: Performed By: #### P T, PTT #### [facility] [address] [place] [address] Dr. Gasper Garber Erythrocyte distribution width (RBC) [Ratio] 12.4 % Normal 11.0-15.0 [facility] Comment on above: Performed By: #### P T, PTT #### [facility] [address] [place] [address] Dr. Gasper Garber Hematocrit (Bld) [Volume fraction] 34.7 % Critically low 36.0-48.0 [facility] Comment on above: Performed By: #### P T, PTT #### [facility] [address] [place] [address] Dr. Gasper Garber Hemoglobin (Bld) [Mass/Vol] 11.4 g/dL Critically low 12.0-16.0 [facility] Comment on above: Performed By: #### P T, PTT #### [facility] [address] [place] [address] Dr. Gasper Garber IG # 0.02 10e3/ul Normal 0.00-0.03 [facility] Comment on above: Performed By: #### P T, PTT #### [facility] [address] [place] [address] Dr. Gasper Garber IG % 0.2 % Normal 0.0-0.5 [facility] Comment on above: Performed By: #### P T, PTT #### [facility] [address] [place] [address] Dr. Gasper Garber LYMPH # 1.6 103/ul Normal 1.2-3.8 [facility] Comment on above: Performed By: #### P T, PTT #### [facility] [address] [place] [address] Dr. Gasper Garber Lymphocytes/100 WBC (Bld) 17.7 % Critically low 20.5-60.0 [facility] Comment on above: Performed By: #### P T, PTT #### [facility] [address] [place] [address] Dr. Gasper Garber MANUAL DIFF REQ NO Normal [facility] Comment on above: Performed By: #### P T, PTT #### [facility] [address] [place] [address] Dr. Gasper Garber MCH (RBC) [Entitic mass] 31.1 pg Normal 26.7-34.0 [facility] Comment on above: Performed By: #### P T, PTT #### [facility] [address] [place] [address] Dr. Gasper Garber MCHC (RBC) [Mass/Vol] 32.9 g/dL Normal 29.9-35.2 [facility] Comment on above: Performed By: #### P T, PTT #### [facility] [address] [place] [address] Dr. Gasper Garber MCV (RBC) [Entitic vol] 94.8 fL Normal 81.0-99.0 [facility] Comment on above: Performed By: #### P T, PTT #### [facility] [address] [place] [address] Dr. Gasper Garber MONO # 1.0 103/ul Critically high 0.3-0.8 [facility] Comment on above: Performed By: #### P T, PTT #### [facility] [address] [place] [address] Dr. Gasper Garber Monocytes/100 WBC (Bld) 10.3 % Normal 1.7-12.0 [facility] Comment on above: Performed By: #### P T, PTT #### [facility] [address] [place] [address] Dr. Gasper Garber NEUT # 6.4 103/ul Normal 1.4-6.5 [facility] Comment on above: Performed By: #### P T, PTT #### [facility] [address] [place] [address] Dr. Gasper Garber Neutrophils/100 WBC (Bld) 69.8 % Normal 43.0-75.0 [facility] Comment on above: Performed By: #### P T, PTT #### [facility] [address] [place] [address] Dr. Gasper Garber Platelet mean volume (Bld) [Entitic vol] 10.4 fL Normal 9.5-13.5 [facility] Comment on above: Performed By: #### P T, PTT #### [facility] [address] [place] [address] Dr. Gasper Garber PLT 269 103/ul Normal 150-450 [facility] Comment on above: Performed By: #### P T, PTT #### [facility] [address] [place] [address] Dr. Gasper Garber RBC 3.66 106/ul Critically low 4.20-5.40 [facility] Comment on above: Performed By: #### P T, PTT #### [facility] [address] [place] [address] Dr. Gasper Garber WBC 9.2 103/ul Normal 4.0-11.0 [facility] Comment on above: Performed By: #### P T, PTT #### [facility] [address] [place] [address] ABD/PELVIS WO CONon [...] NASRIN CHIU Date: 2021-07-15 18:16 Normal [facility] Covid-19 PCR (CVDTB)on 06-20 SARS-CoV-2 (COVID-19) RNA ANA LUISA+probe Ql (Unsp spec) Not detected Normal NOT DETECTED [facility] Comment on above: Result Comment: When [...] for this test is supported by the [place] of [employer] and Human Service's declaration that [...] used). Performed By: #### L ACT #### [facility] [address] [place] [address] Dr. Gasper JENKINS URINE PROFILEon 2 Bilirubin Ql (U) Negative Normal NEGATIVE [facility] Comment on above: Performed By: #### Bernice HERNDON UMICRO #### [facility] [address] [place] [address] Dr. Gasper Garber Clarity (U) CLEAR Normal CLEAR [facility] Comment on above: Performed By: #### E YANICK UMICRO #### [facility] [address] [address] [address] Gasper Garber Color (U) LT. YELLOW Normal YELLOW [facility] Comment on above: Performed By: #### E YANICK UMICRO #### [facility] [address] [place] [address] Dr. Gasper RIVAS A micrscopic examina tion will be performed if indicated. Normal [facility] Comment on above: Performed By: #### Bernice HERNDON UMICRO #### [facility] [address] [place] [address] Dr. Gasper Garber Glucose Ql (U) Negative Normal NEGATIVE [facility] Comment on above: Performed By: #### Bernice HERNDON UMICRO #### [facility] [address] [place] [address] Dr. Gasper Garber Hemoglobin Ql (U) Negative Normal NEGATIVE [facility] Comment on above: Performed By: #### Bernice HERNDON UMICRO #### [facility] [address] [place] [address] Dr. Gasper Garber Ketones Ql (U) Negative Normal NEGATIVE [facility] Comment on above: Performed By: #### Bernice HERNDON UMICRO #### [facility] [address] [place] [address] Dr. Gasper Garber LEUKOCYTES Negative Normal NEGATIVE [facility] Comment on above: Performed By: #### Bernice HERNDON UMICRO #### [facility] [address] [place] [address] Dr. Gasper Garber Nitrite Ql (U) Negative Normal NEGATIVE [facility] Comment on above: Performed By: #### Bernice HERNDON UMICRO #### [facility] [address] [place] [address] Dr. Gasper Garber pH (U) 5.5 [pH] Normal 5-9 [facility] Comment on above: Performed By: #### BERNIE MALDONADO #### [facility] [address] [place] [address] Dr. Gasper Garber SPEC GRAVITY 1.020 Normal 1.005-<=1.0 25 [facility] Comment on above: Performed By: #### TONI MALDONADORO #### [facility] [address] [place] [address] Dr. Gasper Garber UA PROTEIN TRACE Normal NEGATIVE/ TRACE [facility] Comment on above: Performed By: #### BERNIE MALDONADO #### [facility] [address] [place] [address] Dr. Gasper Garber UR MICRO IND INDICATED Normal [facility] Comment on above: Performed By: #### BERNIE MALDONADO #### [facility] [address] [place] [address] Dr. Gasper Garber Urobilinogen Qn (U) 0.2 {Kaushik'U}/dL Normal 0.2 - 1. 0 [facility] Comment on above: Performed By: #### TONI MALDONADORO #### [facility] [address] [place] [address] Dr. Gasper Garber FREE T3on 07-15-2021 FREE T3 2.45 pg/mlL Normal 2.18-3.98 [facility] Comment on above: Performed By: #### P T, PTT #### [facility] [address] [place] [address] Dr. Gasper Garber FREE T4on 07-15-2021 Free T4 [Mass/Vol] 1.19 ng/dL Normal 0.76-1.46 [facility] Comment on above: Performed By: #### A CETON #### [facility] [address] [place] [address] Dr. Gasper Garber LACTATE/LACTIC ACIDon 2021 Lactate [Moles/Vol] 2.0 mmol/L Critically high 0.4-1.9 [facility] Comment on above: Performed By: #### L ACT #### [facility] [address] [place] [address] Dr. Gasper Garber Lactate [Moles/Vol] 4.0 mmol/L Critically high 0.4-1.9 [facility] Comment on above: Performed By: #### L ACT #### [facility] [address] [place] [address] Dr. Gasper Garber LIPASEon 07-15-2021 Lipase [Catalytic activity/Vol] 93.0 U/L Normal 73.0-393.0 [facility] Comment on above: Performed By: #### A CETON #### [facility] [address] [place] [address] Dr. Gasper Garber POINT OF CARE GLUCOSEon 06-20 Glucose [Mass/Vol] 200 mg/dL Critically high 74-106 [facility] Comment on above: Performed By: #### P T, PTT #### [facility] [address] [place] [address] Dr. Gasper Garber PROF 14(COMP METB)on 022 Albumin [Mass/Vol] 3.5 g/dL Normal 3.4-5.0 [facility] Comment on above: Performed By: #### A CETON #### [facility] [address] [place] [address] Dr. Gasper Garber Albumin/Globulin [Mass ratio] 1.0 {ratio} Normal [facility] Comment on above: Performed By: #### A CETON #### [facility] [address] [place] [address] Dr. Gasper Garber ALP [Catalytic activity/Vol] 81 U/L Normal 46-116 [facility] Comment on above: Performed By: #### A CETON #### [facility] [address] [place] [address] Dr. Gasper Garber ALT [Catalytic activity/Vol] 43 U/L Normal 14-59 [facility] Comment on above: Performed By: #### A CETON #### [facility] [address] [place] [address] Dr. Gasper Garber Anion gap [Moles/Vol] 13.6 mmol/L Normal [facility] Comment on above: Performed By: #### A CETON #### [facility] [address] [address] [address] Gasper Garber AST [Catalytic activity/Vol] 19 U/L Normal 15-37 [facility] Comment on above: Performed By: #### A CETON #### [facility] [address] [address] [address] Gasper Garber Bilirubin [Mass/Vol] 0.6 mg/dL Normal 0.2-1.0 [facility] Comment on above: Performed By: #### A CETON #### [facility] [address] [address] [address] Gasper Garber Calcium [Mass/Vol] 8.9 mg/dL Normal 8.5-10.1 [facility] Comment on above: Performed By: #### A CETON #### [facility] [address] [address] [address] Gasper Garber Chloride [Moles/Vol] 103 mmol/L Normal 98-107 [facility] Comment on above: Performed By: #### A CETON #### [facility] [address] [address] [address] Gasper Garber CO2 [Moles/Vol] 25.9 mmol/L Normal 21.0-32.0 [facility] Comment on above: Performed By: #### A CETON #### [facility] [address] [address] [address] Gasper Garber Creatinine [Mass/Vol] 2.91 mg/dL Critically high 0.55-1.02 [facility] Comment on above: Performed By: #### A CETON #### [facility] [address] [place] [address] Dr. Gasper Garber EGFR-AF MOLDOVAN 19 mL/min/1.73m2 Critically low >=60 [facility] Comment on above: Performed By: #### A CETON #### [facility] [address] [place] [address] Dr. Gasper Garber EGFR-NON AF MOLDOVAN 16 mL/min/1.73m2 Critically low >=60 [facility] Comment on above: Performed By: #### A CETON #### [facility] [address] [address] [address] Gasper Garber Globulin (S) [Mass/Vol] 3.5 g/dL Normal [facility] Comment on above: Performed By: #### A CETON #### [facility] [address] [address] [address] Gasper Garber Glucose [Mass/Vol] 201 mg/dL Critically high 74-106 [facility] Comment on above: Performed By: #### A CETON #### [facility] [address] [place] [address] Dr. Gasper Garber Potassium [Moles/Vol] 3.5 mmol/L Normal 3.5-5.1 [facility] Comment on above: Performed By: #### A CETON #### [facility] [address] [address] [address] Gasper Garber Protein [Mass/Vol] 7.0 g/dL Normal 6.4-8.2 [facility] Comment on above: Performed By: #### A CETON #### [facility] [address] [place] [address] Dr. Gasper Garber Sodium [Moles/Vol] 139 mmol/L Normal 136-145 [facility] Comment on above: Performed By: #### A CETON #### [facility] [address] [address] [address] Gasper Garber Urea nitrogen [Mass/Vol] 46.0 mg/dL Critically high 7.0-18.0 [facility] Comment on above: Performed By: #### A CETON #### [facility] [address] [place] [address] Dr. Gasper Garber Urea nitrogen/Creatinine [Mass ratio] 15.8 mg/mg Normal [facility] Comment on above: Performed By: #### A CETON #### [facility] [address] [place] [address] Dr. Gasper Garber PROTIMEon 07-15-2021 INR Coag (PPP) [Relative time] 1.03 {INR} Normal [facility] Comment on above: Performed By: #### P T, PTT #### [facility] [address] [place] [address] Dr. Gasper Garber INR GUIDELINES SEE BELOW Normal [facility] Comment on above: Result Comment: JESUS RED INR: 2.0 - 3.0 CONDITIONS NOT LISTED BELOW 2.5 - 3.5 FOR PROSTHETIC HEART VALVE REPLACEMENT 2.5 - 3.5 RECURRENT THROMBOSIS Performed By: #### P T, PTT #### [facility] [address] [place] [address] Dr. Gasper Garber PT Coag (PPP) [Time] 11.1 s Normal 9.0-11.6 [facility] Comment on above: Performed By: #### P T, PTT #### [facility] [address] [place] [address] Dr. Gasper Garber PTTon 07-15-2021 aPTT Coag (Bld) [Time] 24.2 s Normal 22.3-36.2 [facility] Comment on above: Performed By: #### P T, PTT #### [facility] [address] [place] [address] Dr. Gasper Garber TROPONIN, HIGH SENSITIVITYon 07-15-2021 HSTROP 23.9 pg/mL Normal 4.0-51.3 [facility] Comment on above: Result Comment: CUT- OFF POINTS HAVE BEEN ESTABLISHED BASED ON THE FOURTH UNIVERSAL DEFINITIONS OF MYOCARDIAL INFARCTION. THE UPPER REFERENCE LIMIT (URL) OF TROPONIN, DEFINED THE 99TH PERCENTILE OF cTnI DISTRIBUTION IN A REFERENCE POPULATION, HAS BEEN CONFIRMED THE DECISION THRESHOLD FOR OR DIAGNOSIS. Performed By: #### L ACT #### [facility] [address] [place] [address] Dr. Gasper Garber TSHon 07-15-2021 TSH 3.864 uIU/mL Critically high 0.358-3.740 [facility] Comment on above: Performed By: #### A CETON #### [facility] [address] [place] [address] Dr. Gasper Garber TSH RANGE SEE BELOW Normal [facility] Comment on above: Result Comment: <0.3 4 UIU/ml HYPERTHYROID 0.34-5.60 UIU/ml EUTHYROID >5.60 UIU/ml HYPOTHYROID Performed By: #### A CETON #### [facility] [address] [place] [address] Dr. Gasper Garber URINE MICROSCOPIC ONLYon BACTERIA MODERATE Abnormal NONE SEEN [facility] Comment on above: Performed By: #### E MINR, UMICRO #### [facility] [address] [place] [address] Dr. Gasper Garber Bacteria identified Cx Nom (U) INDICATED Normal [facility] Comment on above: Performed By: #### E MINR, UMICRO #### [facility] [address] [place] [address] Dr. Gasper Garber CAST SEEN Abnormal NONE SEEN [facility] Comment on above: Performed By: #### Bernice HERNDON UMICRO #### [facility] [address] [place] [address] Dr. Gasper Garber Crystals LM Nom (Urine sed) NONE SEEN Normal NONE SEEN [facility] Comment on above: Performed By: #### Bernice HERNDON UMICRO #### [facility] [address] [place] [address] Dr. Gasper Garber Epithelial cells LM Ql (Urine sed) RARE Normal NONE SEEN /RARE [facility] Comment on above: Performed By: #### Bernice HERNDON UMICRO #### [facility] [address] [place] [address] Dr. Gasper Garber MUCOUS NONE SEEN Normal NONE SEEN [facility] Comment on above: Performed By: #### Bernice HERNDON, UMICRO #### [facility] [address] [place] [address] Dr. Gasper Garber RBC NONE SEEN Abnormal 0-2 [facility] Comment on above: Performed By: #### E RUCrystal, UMICRO #### [facility] [address] [place] [address] Dr. Gasper Garber WBC 2-5 Abnormal NONE SEEN [facility] Comment on above: Performed By: #### E BERNIE HERNDON #### [facility] [address] [address] [address] Gasper Garber XR chest 1V portableon 07-01 XR chest 1V portable [facility] [place] [address] [place] [address] XRay Report Signed Patient: Elif Turner MR#: [id number] : 1945 Acct:[id number] Age/Sex: 75 / F ADM Date: 06/24/21 Loc: Room: [address] [place] [address] Type: DIS IN Attending Dr: Rusty Amor [...] Valle Jr., M.D.07/01/2021 9:08 AM Dictation Location: [place] [address] Transcribed By: [facility] 07/01/21907 Dictated By: Adarsh Valle Jr, MD 07/01/21906 Signed By: 07/01/21 09 Normal [facility] Activated partial thrombopla stin time (aPTT) in platelet poor plasma by coagulation aOrdered By: Marlon Leon on 06-25-2021 aPTT Coag (PPP) [Time] 24.8 s 25.1-36.5 [facility] Basophils Auto (Bld) [#/Vol] Ordered By: Marlon Leon on 06-25-2021 Basophils (Bld) [#/Vol] 0.0 10*3/uL 0.0-0.2 [facility] Basophils/100 WBC Auto (Bld) Ordered By: Marlon Leon on 06-25-2021 Basophils/100 WBC (Bld) 0.3 % [facility] Blood hemoglobin measurement (mass/volume)Ordered By: Marlon Leon on 06-25-2021 Hemoglobin (Bld) [Mass/Vol] 11.1 g/dL 11.8-15.4 [facility] Blood leukocytes automated c ount (number/volume)Ordered By: Marlon Leon on 06-25-2021 WBC (Bld) [#/Vol] 10.5 10*3/uL 4.5-11.0 [facility] Complete Blood Count Auto Di ffon 06-25-2021 Basophils (Bld) [#/Vol] 0.0 10*3/uL Normal 0.0-0.2 [facility] Comment on above: Result Comment: PERF ORMED BY: [facility] [address] [place] [address] PATHOLOGIST GLASS SANDER BELT NARGIS CLEMENS M.D. Performed By: #### G LULS #### Point of Care testing , Basophils/100 WBC (Bld) 0.3 % Normal . [facility] Comment on above: Performed By: #### G LULS #### Point of Care testing , Eosinophils (Bld) [#/Vol] 0.0 10*3/uL Normal 0.0-0.45 [facility] Comment on above: Performed By: #### G LULS #### Point of Care testing , Eosinophils/100 WBC (Bld) 0.0 % Normal . [facility] Comment on above: Performed By: #### G LULS #### Point of Care testing , Erythrocyte distribution width (RBC) [Ratio] 12.7 % Normal 11.9-15.3 [facility] Comment on above: Performed By: #### G LULS #### Point of Care testing , Hematocrit (Bld) [Volume fraction] 32.7 % Low 34.0-46.4 [facility] Comment on above: Performed By: #### G LULS #### Point of Care testing , Hemoglobin (Bld) [Mass/Vol] 11.1 g/dL Low 11.8-15.4 [facility] Comment on above: Performed By: #### G LULS #### Point of Care testing , Lymphocytes (Bld) [#/Vol] 0.4 10*3/uL Low 1.00-4.8 [facility] Comment on above: Performed By: #### G LULS #### Point of Care testing , Lymphocytes/100 WBC (Bld) 4.3 % Normal . [facility] Comment on above: Performed By: #### G LULS #### Point of Care testing , MCH (RBC) [Entitic mass] 31.3 pg Normal 24.7-34.3 [facility] Comment on above: Performed By: #### G ROLANDOLS #### Point of Care testing , MCV (RBC) [Entitic vol] 92.1 fL Normal 80-100 [facility] Comment on above: Performed By: #### G LULS #### Point of Care testing , Mean Corpuscular HGB Conc 34.0 g/dL Normal 32.0-35.0 [facility] Comment on above: Performed By: #### G ROLANDOLS #### Point of Care testing , Monocytes (Bld) [#/Vol] 0.5 10*3/uL Normal 0.0-0.8 [facility] Comment on above: Performed By: #### G LULS #### Point of Care testing , Monocytes/100 WBC (Bld) 4.5 % Normal . [facility] Comment on above: Performed By: #### G ROLANDOLS #### Point of Care testing , Neutrophils (Bld) [#/Vol] 9.6 10*3/uL High 1.8-7.7 [facility] Comment on above: Performed By: #### G LULS #### Point of Care testing , Neutrophils/100 WBC (Bld) 90.9 % Normal . [facility] Comment on above: Performed By: #### G SHANNAN #### Point of Care testing , Nucleated RBC/100 WBC (Bld) [Ratio] 0.0 % Normal 0-0.5 [facility] Comment on above: Performed By: #### G ROLANDOLS #### Point of Care testing , Platelet mean volume (Bld) [Entitic vol] 9.0 fL Normal 6.3-10.7 [facility] Comment on above: Performed By: #### G LULS #### Point of Care testing , Platelets (Bld) [#/Vol] 205 10*3/uL Normal 150-450 [facility] Comment on above: Performed By: #### G SHANNAN #### Point of Care testing , RBC (Bld) [#/Vol] 3.55 10*6/uL Low 3.60-5.00 [facility] Comment on above: Performed By: #### G SHANNAN #### Point of Care testing , WBC (Bld) [#/Vol] 10.5 10*3/uL Normal 4.5-11.0 [facility] Comment on above: Performed By: #### G SHANNAN #### Point of Care testing , ECG 12 lead ECGon 06-25-2021 ECG 12 lead ECG [facility] [place] [address] Electrocardiograph Report Signed Patient: Elif Turner MR#: [id number] : 1945 Acct:[id number] Age/Sex: 75 / F ADM Date: 06/24/21 Loc: Room: [address] [place] [address] Type: DIS IN Attending Dr: Rusty Amor [...] are now present Confirmed by SANG BARRIOS [facility], WIL ([id number]) on 06/25/2021 11:01:31 AM Referred By: Electronically Signed By:WIL DOMÍNGUEZ MD [facility] Transcribed By: MUS Signed By Wil Domínguez MD, [facility] 06/25/21 1101 Normal [facility] Eosinophils Auto (Bld) [#/Vo l]Ordered By: Marlon Leon on 06-25-2021 Eosinophils (Bld) [#/Vol] 0.0 10*3/uL 0.0-0.45 [facility] Eosinophils/100 WBC Auto (Bl d)Ordered By: Marlon Leon on 06-25-2021 Eosinophils/100 WBC (Bld) 0.0 % [facility] Erythrocyte distribution wid th Auto (RBC) [Ratio]Ordered By: Marlon Leon on 06-25-2021 Erythrocyte distribution width (RBC) [Ratio] 12.7 % 11.9-15.3 [facility] Glucose Glucometer (BldC) [M ass/Vol]Ordered By: Rusty Amor on 06-25-2021 Glucose [Mass/Vol] 227 mg/dL [facility] Comment on above: Random Glucose Refer ence Range is dependent on time and content of last meal. Glucose of more than 200 mg/dL in a nonstressed, ambulatory subject supports the diagnosis of Diabetes Mellitus. Glucose Poct Glucometerson 0 06-25-2021 Glucose [Mass/Vol] 227 mg/dL Normal [facility] Comment on above: Result Comment: [place] Glucose Reference Range is dependent on time and content of last meal. Glucose of more than 200 mg/dL in a nonstressed, ambulatory subject supports the diagnosis of Diabetes Mellitus. PERFORMED BY: [place] [address] PATHOLOGIST GLASS SANDER BELT NARGIS CLEMENS M.D. Performed By: #### P TT #### [address] Glucose [Mass/Vol] 184 mg/dL Normal [facility] Comment on above: Result Comment: [place] Glucose Reference Range is dependent on time and content of last meal. Glucose of more than 200 mg/dL in a nonstressed, ambulatory subject supports the diagnosis of Diabetes Mellitus. PERFORMED BY: [place] [address] PATHOLOGIST GLASS SANDER BELT NARGIS CLEMENS M.D. Performed By: #### P TT #### [address] Glucose [Mass/Vol] 294 mg/dL Normal [facility] Comment on above: Result Comment: [facility] Glucose Reference Range is dependent on time and content of last meal. Glucose of more than 200 mg/dL in a nonstressed, ambulatory subject supports the diagnosis of Diabetes Mellitus. PERFORMED BY: [place] [address] PATHOLOGIST GLASS SANDER BELT NARGIS CLEMENS M.D. Performed By: #### G LULS #### Point of Care testing , Hematocrit Auto (Bld) [Volum e fraction]Ordered By: Marlon Leon on 06-25-2021 Hematocrit (Bld) [Volume fraction] 32.7 % 34.0-46.4 [facility] Laboratory - CoagulationOrde red By: Marlon Leon on 06-25-2021 PT Coag (PPP) [Time] 11.5 s 9.0-12.9 [facility] Laboratory - Hematology and Cell countsOrdered By: Marlon Leon on 06-25-2021 Nucleated RBC/100 WBC (Bld) [Ratio] 0.0 % 0-0.5 [facility] Lymphocytes Auto (Bld) [#/Vo l]Ordered By: Marlon Leon on 06-25-2021 Lymphocytes (Bld) [#/Vol] 0.4 10*3/uL 1.00-4.8 [facility] Lymphocytes/100 WBC Auto (Bl d)Ordered By: Marlon Leon on 06-25-2021 Lymphocytes/100 WBC (Bld) 4.3 % [facility] MCH Auto (RBC) [Entitic mass ]Ordered By: Marlon Leon on 06-25-2021 MCH (RBC) [Entitic mass] 31.3 pg 24.7-34.3 [facility] MCHC Auto (RBC) [Mass/Vol]Or dered By: Marlon Leon on 06-25-2021 MCHC (RBC) [Mass/Vol] 34.0 g/dL 32.0-35.0 [facility] MCV Auto (RBC) [Entitic vol] Ordered By: Marlon Leon on 06-25-2021 MCV (RBC) [Entitic vol] 92.1 fL 80-100 [facility] Monocytes Auto (Bld) [#/Vol] Ordered By: Marlon Leon on 06-25-2021 Monocytes (Bld) [#/Vol] 0.5 10*3/uL 0.0-0.8 [facility] Monocytes/100 WBC Auto (Bld) Ordered By: Marlon Leon on 06-25-2021 Monocytes/100 WBC (Bld) 4.5 % [facility] Neutrophils Auto (Bld) [#/Vo l]Ordered By: Marlon Leon on 06-25-2021 Neutrophils (Bld) [#/Vol] 9.6 10*3/uL 1.8-7.7 [facility] Neutrophils/100 WBC Auto (Bl d)Ordered By: Marlon Leon on 06-25-2021 Neutrophils/100 WBC (Bld) 90.9 % [facility] Partial Thromboplastin Timeo n 06-25-2021 aPTT Coag (Bld) [Time] 24.8 s Low 25.1-36.5 [facility] Comment on above: Result Comment: PERF ORMED BY: [facility] [address] [place] [address] PATHOLOGIST GLASS SANDER BELT NARGIS CLEMENS M.D. Performed By: #### G SHANNAN #### Point of Care testing , Platelet mean volume Auto (B ld) [Entitic vol]Ordered By: Marlon Leon on 06-25-2021 Platelet mean volume (Bld) [Entitic vol] 9.0 fL 6.3-10.7 [facility] Platelet poor plasma interna tional normalized ratio (INR) by coagulation assay (relatOrdered By: Marlon Leon on 06-25-2021 INR Coag (PPP) [Relative time] 1.0 {INR} [facility] Comment on above: INR Therapeutic Rang [...] 06-25-2021 Platelets (Bld) [#/Vol] 205 10*3/uL 150-450 [facility] Progress Noteson 06-25-2021 Aerosol Supervisor Authentication Interface Message Text EMERGENCY TRIAGE, TREAT AND TRANSPORT (ET3) DOCUMENTATION OF TELEHEALTH VISIT Date / Time: 06/23/20211929 Name: Elif Turner : 1945 SSN: (Not on file) EMS Agency: [facility] [x] Verbal consent obtained [] [...] Completed by: Andreas Freitas MD Normal [employer] Prothrombin Time INRon 06-25 INR Coag (PPP) [Relative time] 1.0 {INR} Normal [facility] Comment on above: Result Comment: INR [...] Coag (PPP) [Time] 11.5 s Normal 9.0-12.9 [facility] Comment on above: Performed By: #### G LULS #### Point of Care testing , RBC Auto (Bld) [#/Vol]Ordere d By: Marlon Leon on 06-25-2021 RBC (Bld) [#/Vol] 3.55 10*6/uL 3.60-5.00 [facility] Troponin I High Sensitivityo n 06-25-2021 Troponin I High Sensitivity 735 pg/mL Off scale high 0-15 [facility] Comment on above: Result Comment: Crit ical value result called at 0638 on 06/25/21 PERFORMED BY: [facility] [address] [place] [address] PATHOLOGIST GLASS SANDER BELT NARGIS CLEMENS M.D. Performed By: #### P TT #### [facility] [address] [place] [id number] [facility] Troponin I.cardiac [Mass/vol ume] in Serum or Plasma by High sensitivity methodOrdered By: Gen Bolivar on 06-25-2021 Troponin I.cardiac High sensitivity method [Mass/Vol] 735 pg/mL 0-15 [facility] Comment on above: Critical value result called at 0638 on 06/25/21 A1C with Estimated Average Chitra pang 06-24-2021 Glucose [Mass/Vol] 160 mg/dL Normal [facility] Comment on above: Result Comment: PERF ORMED BY: [facility] [address] [place] [address] PATHOLOGIST GLASS SANDER BELT NARGIS CLEMENS M.D. Performed By: #### G LULS #### Point of Care testing , HbA1c (Bld) [Mass fraction] 7.2 % High 4.3-5.6 [facility] Comment on above: Result Comment: Incr eased risk for diabetes: 5.7 - 6.4 diabetes: >6.4 glycemic control for adults with diabetes: <7.0 Performed By: #### G LULS #### Point of Care testing , Albumin [Mass/volume] in Ser um or PlasmaOrdered By: Marlon Leon on 06-24-2021 Albumin [Mass/Vol] 3.1 g/dL 3.2-5.5 [facility] Cholesterol [Mass/volume] in Serum or PlasmaOrdered By: Marlon Leon on 06-24-2021 Cholesterol [Mass/Vol] 128 mg/dL 140-200 [facility] Comment on above: Chol less than 200 m g/dl low risk Chol 201-239 mg/dl borderline risk Chol 240 mg/dl and greater high risk Cholesterol in LDL Calc [Mas s/Vol]Ordered By: Marlon Leon on 06-24-2021 Cholesterol in LDL [Mass/Vol] 56 mg/dL 0-100 [facility] Comment on above: LDL ATP III CLASSIFI CATION LDL less than 100 mg/dL Optimal LDL 100-129 mg/dL Near or above optimal LDL 130-159 mg/dL Borderline high LDL 160-189 mg/dL High LDL greater than 189 mg/dL Very high Cholesterol in VLDL Calc [Ma ss/Vol]Ordered By: Marlon Leon on 06-24-2021 Cholesterol in VLDL [Mass/Vol] 13 mg/dL [facility] Complete Blood Count Auto Di ffon 06-24-2021 Basophils (Bld) [#/Vol] 0.1 10*3/uL Normal 0.0-0.2 [facility] Comment on above: Result Comment: PERF ORMED BY: [place] [address] PATHOLOGIST GLASS SANDER BELT NARGIS CLEMENS M.D. Performed By: #### P TT #### [address] Basophils/100 WBC (Bld) 0.8 % Normal . [facility] Comment on above: Performed By: #### P TT #### [address] Eosinophils (Bld) [#/Vol] 0.2 10*3/uL Normal 0.0-0.45 [facility] Comment on above: Performed By: #### P TT #### [address] Eosinophils/100 WBC (Bld) 3.2 % Normal . [facility] Comment on above: Performed By: #### P TT #### [address] Erythrocyte distribution width (RBC) [Ratio] 12.7 % Normal 11.9-15.3 [facility] Comment on above: Performed By: #### P TT #### [address] Hematocrit (Bld) [Volume fraction] 30.5 % Low 34.0-46.4 [facility] Comment on above: Performed By: #### P TT #### [address] Hemoglobin (Bld) [Mass/Vol] 10.4 g/dL Low 11.8-15.4 [facility] Comment on above: Performed By: #### P TT #### [address] Lymphocytes (Bld) [#/Vol] 1.8 10*3/uL Normal 1.00-4.8 [facility] Comment on above: Performed By: #### P TT #### [address] Lymphocytes/100 WBC (Bld) 27.4 % Normal . [facility] Comment on above: Performed By: #### P TT #### [address] MCH (RBC) [Entitic mass] 31.3 pg Normal 24.7-34.3 [facility] Comment on above: Performed By: #### P TT #### [address] MCV (RBC) [Entitic vol] 92.0 fL Normal 80-100 [facility] Comment on above: Performed By: #### P TT #### [address] Mean Corpuscular HGB Conc 34.1 g/dL Normal 32.0-35.0 [facility] Comment on above: Performed By: #### P TT #### [address] Monocytes (Bld) [#/Vol] 0.6 10*3/uL Normal 0.0-0.8 [facility] Comment on above: Performed By: #### P TT #### [address] Monocytes/100 WBC (Bld) 8.9 % Normal . [facility] Comment on above: Performed By: #### P TT #### [place] [address] [place] Neutrophils (Bld) [#/Vol] 3.8 10*3/uL Normal 1.8-7.7 [facility] Comment on above: Performed By: #### P TT #### [place] [address] [place] Neutrophils/100 WBC (Bld) 59.7 % Normal . [facility] Comment on above: Performed By: #### P TT #### [address] Nucleated RBC/100 WBC (Bld) [Ratio] 0.0 % Normal 0-0.5 [facility] Comment on above: Performed By: #### P TT #### [address] Platelet mean volume (Bld) [Entitic vol] 8.4 fL Normal 6.3-10.7 [facility] Comment on above: Performed By: #### P TT #### [address] Platelets (Bld) [#/Vol] 191 10*3/uL Normal 150-450 [facility] Comment on above: Performed By: #### P TT #### [address] RBC (Bld) [#/Vol] 3.31 10*6/uL Low 3.60-5.00 [facility] Comment on above: Performed By: #### P TT #### [address] WBC (Bld) [#/Vol] 6.4 10*3/uL Normal 4.5-11.0 [facility] Comment on above: Performed By: #### P TT #### [address] Comprehensive Metabolic Pane hailey 06-24-2021 Albumin [Mass/Vol] 3.1 g/dL Low 3.2-5.5 [facility] Comment on above: Performed By: #### H S TROP, PT, PTT, CMP, PHOS, MG, LIPID #### [address] Albumin/Globulin [Mass ratio] 1.2 {ratio} Normal [facility] Comment on above: Performed By: #### H S TROP, PT, PTT, CMP, PHOS, MG, LIPID #### [facility] [address] [place] [address] ALP [Catalytic activity/Vol] 57 U/L Normal 32-92 [facility] Comment on above: Performed By: #### H S TROP, PT, PTT, CMP, PHOS, MG, LIPID #### [address] ALT [Catalytic activity/Vol] 25 U/L Normal 10-60 [facility] Comment on above: Performed By: #### H S TROP, PT, PTT, CMP, PHOS, MG, LIPID #### [facility] [address] [place] [address] AST [Catalytic activity/Vol] 20 U/L Normal 10-42 [facility] Comment on above: Performed By: #### H S TROP, PT, PTT, CMP, PHOS, MG, LIPID #### [facility] [address] [place] [address] Bilirubin [Mass/Vol] 0.5 mg/dL Normal 0.3-1.2 [facility] Comment on above: Performed By: #### H S TROP, PT, PTT, CMP, PHOS, MG, LIPID #### [address] Calcium [Mass/Vol] 9.1 mg/dL Normal 8.2-10.2 [facility] Comment on above: Performed By: #### H S TROP, PT, PTT, CMP, PHOS, MG, LIPID #### [facility] [address] [place] [address] Chloride [Moles/Vol] 108 mmol/L Normal 95-114 [facility] Comment on above: Performed By: #### H S TROP, PT, PTT, CMP, PHOS, MG, LIPID #### [address] CO2 [Moles/Vol] 25.1 mmol/L Normal 22.0-30.0 [facility] Comment on above: Performed By: #### H S TROP, PT, PTT, CMP, PHOS, MG, LIPID #### [address] [place] [address] [place] Creatinine [Mass/Vol] 1.64 mg/dL High 0.44-1.03 [facility] Comment on above: Performed By: #### H S TROP, PT, PTT, CMP, PHOS, MG, LIPID #### [facility] [address] Creatinine Clr Calc Pharmacy 33.[address] [facility] Comment on above: Performed By: #### H S TROP, PT, PTT, CMP, PHOS, MG, LIPID #### [facility] [address] Estimated GFR ( Cathryn [address] [facility] Comment on above: Result Comment: GFR estimated reference range: According to KDOQI guidelines, <60 ml/min/1.73m2 is sufficient to diagnose a patient with chronic kidney disease. Performed By: #### H S TROP, PT, PTT, CMP, PHOS, MG, LIPID #### [address] Estimated GFR (Non- Am [address] [facility] Comment on above: Performed By: #### H S TROP, PT, PTT, CMP, PHOS, MG, LIPID #### [address] Globulin (S) [Mass/Vol] 2.6 g/dL [facility] Comment on above: Performed By: #### H S TROP, PT, PTT, CMP, PHOS, MG, LIPID #### [address] Glucose [Mass/Vol] 65 mg/dL Low 70-100 [facility] Comment on above: Result Comment: [place] Glucose Reference Range is dependent on time and content of last meal. Glucose of more than 200 mg/dL in a nonstressed, ambulatory subject supports the diagnosis of Diabetes Mellitus. ADA recommended reference range Performed By: #### H S TROP, PT, PTT, CMP, PHOS, MG, LIPID #### [address] Potassium [Moles/Vol] 4.1 mmol/L Normal 3.5-5.1 [facility] Comment on above: Performed By: #### H S TROP, PT, PTT, CMP, PHOS, MG, LIPID #### [facility] [address] Protein [Mass/Vol] 5.7 g/dL Low 6.1-7.9 [facility] Comment on above: Performed By: #### H S TROP, PT, PTT, CMP, PHOS, MG, LIPID #### [facility] [address] Sodium [Moles/Vol] 140 mmol/L Normal 136-146 [facility] Comment on above: Performed By: #### H S TROP, PT, PTT, CMP, PHOS, MG, LIPID #### [facility] [address] Urea nitrogen [Mass/Vol] 27 mg/dL High 9-23 [facility] Comment on above: Performed By: #### H S TROP, PT, PTT, CMP, PHOS, MG, LIPID #### [facility] [address] [place] [address] [place] Creatinine and Glomerular fi ltration rate.predicted panel (S/P/Bld)Ordered By: Marlon Leon on 06-24-2021 Creatinine [Mass/Vol] 1.64 mg/dL 0.44-1.03 [facility] ECG 12 lead ECGon 06-24-2021 ECG 12 lead ECG [facility] [place] [address] Electrocardiograph Report Signed Patient: Elif Turner MR#: [id number] : 1945 Acct:[id number] Age/Sex: 75 / F ADM Date: 06/24/21 Loc: Room: [address] [place] [address] Type: DIS IN Attending Dr: Rusty Amor [...] Referred By: Electronically Signed By:WIL DOMÍNGUEZ MD [facility] Transcribed By: MUS Signed By Wil Domínguez MD, FACC 06/25/[address] [facility] ECG 12 lead ECG [place] [id number] Electrocardiograph Report Signed Patient: Elif Turner MR#: [id number] : 1945 Acct:[id number] Age/Sex: 75 / F ADM Date: 06/24/21 Loc: Room: [address] [place] [address] Type: DIS IN Attending Dr: Rusty Amor [...] By Wil Domínguez MD, FACC 06/24/[address] [facility] ECH echo transthoracicon ECH echo transthoracic [facility] Main [address] [address] Echocardiogram Signed Patient: Elif Turner MR#: [id number] : 1945 Acct:[id number] Age/Sex: 75 / F ADM Date: 06/24/21 Loc: 4 Room: [address] [place] [address] Type: DIS IN Attending Dr: Rusty Amor MD Ordering Provider: Marlon Leon DO, RES Date of Service: 06/24/2108/10/602 ECH/ECH echo transthoracic: NSTEMI Copies to: Marlon Leon DO, RES Wil Domínguez MD, [facility] A : 1945 Gender: Female (MM/DD/YYYY) Age: [...] Frazier. : : MD SANG, : : [facility] : : : : on: 06/24/2021, 11:11 : : AM : : : Transcribed By: SCAnita Performed At: 06/24/21 0944 Signed By: Wil Domínguez MD, [facility] 06/24/21 1111 Normal [facility] Estimated glomerular filtrat ion rate (GFR) non- AmericanOrdered By: Marlon Leon on 06-24-2021 GFR/1.73 sq M.predicted among non-blacks MDRD (S/P/Bld) [Vol rate/Area] 31 mL/Min [facility] Globulin Calc (S) [Mass/Vol] Ordered By: Marlon Leon on 06-24-2021 Globulin (S) [Mass/Vol] 2.6 g/dL [facility] Glucose Poct Glucometerson 0 06-24-2021 Glucose [Mass/Vol] 322 mg/dL Normal [facility] Comment on above: Result Comment: [place] Glucose Reference Range is dependent on time and content of last meal. Glucose of more than 200 mg/dL in a nonstressed, ambulatory subject supports the diagnosis of Diabetes Mellitus. PERFORMED BY: [place] [address] PATHOLOGIST GLASS SANDER BELT NARGIS CLEMENS M.D. Performed By: #### G LULS #### Point of Care testing , Commemt1 Glu2: Cleaned Meter Normal [facility] Comment on above: Result Comment: PERF ORMED BY: [facility] [address] [facility] [place] [address] PATHOLOGIST GLASS SANDER BELT NARGIS CLEMENS M.D. Performed By: #### G LULS #### Point of Care testing , Glucose [Mass/Vol] 87 mg/dL Normal [facility] Comment on above: Result Comment: [place] Glucose Reference Range is dependent on time and content of last meal. Glucose of more than 200 mg/dL in a nonstressed, ambulatory subject supports the diagnosis of Diabetes Mellitus. Performed By: #### G LULS #### Point of Care testing , Glucose [Mass/Vol] 139 mg/dL Normal [facility] Comment on above: Result Comment: [facility] Glucose Reference Range is dependent on time and content of last meal. Glucose of more than 200 mg/dL in a nonstressed, ambulatory subject supports the diagnosis of Diabetes Mellitus. PERFORMED BY: [place] [address] PATHOLOGIST GLASS SANDER BELT NARGIS CLEMENS M.D. Performed By: #### P TT #### [facility] [address] [place] [address] Glucose mean value [Mass/vol ume] in Blood Estimated from glycated hemoglobinOrdered By: Marlon Leon on 06-24-2021 Average glucose Estimated from glycated hemoglobin (Bld) [Mass/Vol] 160 mg/dL [facility] Hemoglobin A1c percentageOrd ered By: Marlon Leon on 06-24-2021 HbA1c (Bld) [Mass fraction] 7.2 % 4.3-5.6 [facility] Comment on above: Increased risk for d iabetes: 5.7 - 6.4 diabetes: >6.4 glycemic control for adults with diabetes: <7.0 Laboratory - Chemistry and C hemistry - challengeOrdered By: Marlon Leon on 06-24-2021 Magnesium [Mass/Vol] 2.4 mg/dL 1.6-2.6 [facility] Lipid Panelon 06-24-2021 Cholesterol [Mass/Vol] 128 mg/dL Low 140-200 [facility] Comment on above: Result Comment: Chol less than 200 mg/dl low risk Chol 201-239 mg/dl borderline risk Chol 240 mg/dl and greater high risk Performed By: #### H S TROP, PT, PTT, CMP, PHOS, MG, LIPID #### [facility] [address] [place] [address] Cholesterol in HDL [Mass/Vol] 58 mg/dL Normal 35-85 [facility] Comment on above: Result Comment: HDL CHOL ATP-III CLASSIFICATION Cardiovascular Risk HDL > or equal to 60 mg/dL LOW HDL < 40 mg/dL HIGH Performed By: #### H S TROP, PT, PTT, CMP, PHOS, MG, LIPID #### [facility] [address] Cholesterol.total/Ch olesterol in HDL [Mass ratio] 2.2 {ratio} Normal <5.0 [facility] Comment on above: Result Comment: PERF ORMED BY: [facility] [address] [place] [address] PATHOLOGIST GLASS SANDER BELT NARGIS CLEMENS M.D. Performed By: #### H S TROP, PT, PTT, CMP, PHOS, MG, LIPID #### [facility] [address] LDL Cholesterol,Calculat ed 56 mg/dL Normal 0-100 [facility] Comment on above: Result Comment: LDL ATP III CLASSIFICATION LDL less than 100 mg/dL Optimal LDL 100-129 mg/dL Near or above optimal LDL 130-159 mg/dL Borderline high LDL 160-189 mg/dL High LDL greater than 189 mg/dL Very high Performed By: #### H S TROP, PT, PTT, CMP, PHOS, MG, LIPID #### [facility] [address] Triglyceride w/Reflex 69 mg/dL Normal 35-149 [facility] Comment on above: Result Comment: TRIG ATP III CLASSIFICATION TRIG less than 150 mg/dL Normal TRIG 150-199 mg/dL Borderline high TRIG 200-500 mg/dL High TRIG greater than 500 mg/dL Very high Standard traceable to the Center for Disease Conrtrol and Prevention (CDC) test method. Performed By: #### H S TROP, PT, PTT, CMP, PHOS, MG, LIPID #### [facility] [address] VLDL CHOLESTEROL 13 mg/dL Normal [facility] Comment on above: Performed By: #### H S TROP, PT, PTT, CMP, PHOS, MG, LIPID #### [facility] [address] Magnesiumon 06-24-2021 Magnesium [Mass/Vol] 2.4 mg/dL Normal 1.6-2.6 [facility] Comment on above: Performed By: #### H S TROP, PT, PTT, CMP, PHOS, MG, LIPID #### [facility] [address] No Panel InformationOrdered By: Rusty Amor on 06-24-2021 Bedside Glucose Comment Glu2: cleaned meter [facility] No Panel InformationOrdered By: Marlon Leon on 06-24-2021 Estimated GFR () 37 mL/Min [facility] Comment on above: GFR estimated refere nce range: According to KDOQI guidelines, <60 ml/min/1.73m2 is sufficient to diagnose a patient with chronic kidney disease. Pharmacy Creatinine Clearance (Chem 33.62 [facility] Partial Thromboplastin Timeo n 06-24-2021 aPTT Coag (Bld) [Time] 43.4 s High 25.1-36.5 [facility] Comment on above: Order Comment: draw both at 11:35 with per Shahnaz martin Result Comment: PERF ORMED BY: [place] [address] PATHOLOGIST GLASS SANDER BELT NARGIS CLEMENS M.D. Performed By: #### P TT #### [address] aPTT Coag (Bld) [Time] 35.4 s Normal 25.1-36.5 [facility] Comment on above: Result Comment: PERF ORMED BY: [place] [address] PATHOLOGIST GLASS SANDER BELT NARGIS CLEMENS M.D. Performed By: #### H S TROP, PT, PTT, CMP, PHOS, MG, LIPID #### [facility] [address] [place] [address] Phosphate [Mass/volume] in S sybil or PlasmaOrdered By: Marlon Leon on 06-24-2021 Phosphate [Mass/Vol] 3.5 mg/dL 2.5-4.6 [facility] Phosphoruson 06-24-2021 Phosphate [Mass/Vol] 3.5 mg/dL Normal 2.5-4.6 [facility] Comment on above: Performed By: #### H S TROP, PT, PTT, CMP, PHOS, MG, LIPID #### [facility] [address] Protein [Mass/volume] in Ser um or PlasmaOrdered By: Marlon Leon on 06-24-2021 Protein [Mass/Vol] 5.7 g/dL 6.1-7.9 [facility] Prothrombin Time INRon 06-24 INR Coag (PPP) [Relative time] 1.0 {INR} Normal [facility] Comment on above: Result Comment: INR [...] PT, PTT, CMP, PHOS, MG, LIPID #### [facility] [address] PT Coag (PPP) [Time] 11.7 s Normal 9.0-12.9 [facility] Comment on above: Performed By: #### H S TROP, PT, PTT, CMP, PHOS, MG, LIPID #### [facility] [address] Serum or plasma alanine liu otransferase measurement without P-5'-P (enzymatic activiOrdered By: Marlon Leon on 06-24-2021 ALT No additional P-5'-P [Catalytic activity/Vol] 25 U/L 10-60 [facility] Serum or plasma albumin/glob ulin mass ratioOrdered By: Marlon Leon on 06-24-2021 Albumin/Globulin [Mass ratio] 1.2 {ratio} [facility] Serum or plasma alkaline carrie sphatase measurement (enzymatic activity/volume)Ordered By: Marlon Leon on 06-24-2021 ALP [Catalytic activity/Vol] 57 U/L 32-92 [facility] Serum or plasma aspartate am inotransferase measurement (enzymatic activity/volume)Ordered By: Marlon Leon on 06-24-2021 AST [Catalytic activity/Vol] 20 U/L 10-42 [facility] Serum or plasma calcium varsha urement (mass/volume)Ordered By: Marlon Leon on 06-24-2021 Calcium [Mass/Vol] 9.1 mg/dL 8.2-10.2 [facility] Serum or plasma chloride viktoriya surement (moles/volume)Ordered By: Marlon Leon on 06-24-2021 Chloride [Moles/Vol] 108 mmol/L 95-114 [facility] Serum or plasma glucose varsha urement (mass/volume)Ordered By: Marlon Leon on 06-24-2021 Glucose [Mass/Vol] 65 mg/dL 70-100 [facility] Comment on above: ADA recommended refe rence range Random Glucose Reference Range is dependent on time and content of last meal. Glucose of more than 200 mg/dL in a nonstressed, ambulatory subject supports the diagnosis of Diabetes Mellitus. Serum or plasma high density lipoprotein (HDL) cholesterol measurementOrdered By: Marlon Leon on 06-24-2021 Cholesterol in HDL [Mass/Vol] 58 mg/dL 35-85 [facility] Comment on above: HDL CHOL ATP-III CLA SSIFICATION Cardiovascular Risk HDL > or equal to 60 mg/dL LOW HDL < 40 mg/dL HIGH Serum or plasma potassium me asurement (moles/volume)Ordered By: Marlon Leon on 06-24-2021 Potassium [Moles/Vol] 4.1 mmol/L 3.5-5.1 [facility] Serum or plasma sodium measu rement (moles/volume)Ordered By: Marlon Leon on 06-24-2021 Sodium [Moles/Vol] 140 mmol/L 136-146 [facility] Serum or plasma total biliru bin measurement (mass/volume)Ordered By: Marlon Leon on 06-24-2021 Bilirubin [Mass/Vol] 0.5 mg/dL 0.3-1.2 [facility] Serum or plasma total carbon dioxide measurement (moles/volume)Ordered By: Marlon Leon on 06-24-2021 CO2 [Moles/Vol] 25.1 mmol/L 22.0-30.0 [facility] Serum or plasma total choles terol/high density lipoprotein (HDL) cholesterol mass ratOrdered By: Marlon Leon on 06-24-2021 Cholesterol.total/Ch olesterol in HDL [Mass ratio] 2.2 {ratio} [facility] Serum or plasma urea nitroge n measurement (mass/volume)Ordered By: Marlon Leon on 06-24-2021 Urea nitrogen [Mass/Vol] 27 mg/dL 9- [facility] Triglyceride [Mass/volume] i n Serum or PlasmaOrdered By: Marlon Leon on 06-24-2021 Triglyceride [Mass/Vol] 69 mg/dL 35-149 [facility] Comment on above: TRIG ATP III CLASSIF ICATION TRIG less than 150 mg/dL Normal TRIG 150-199 mg/dL Borderline high TRIG 200-500 mg/dL High TRIG greater than 500 mg/dL Very high Standard traceable to the Center for Disease Conrtrol and Prevention (CDC) test method. Troponin I High Sensitivityo n 06-24-2021 Troponin I High Sensitivity 879 pg/mL Off scale high 0-15 [facility] Comment on above: Order Comment: draw both at 11:35 with per Shahnaz martin Result Comment: Crit ical value result called at 1246 on 06/24/21 PERFORMED BY: [place] [address] PATHOLOGIST GLASS SANDER BELT NARGIS CLEMENS M.D. Performed By: #### G LULS #### Point of Care testing , Troponin I High Sensitivity 1098 pg/mL Off scale high 0-15 [facility] Comment on above: Result Comment: Resu lts called at 0635 on 06/24/21 PERFORMED BY: [place] [address] PATHOLOGIST GLASS SANDER BELT NARGIS CLEMENS M.D. Performed By: #### H S TROP, PT, PTT, CMP, PHOS, MG, LIPID #### [address] Auth for Release of Medical Recordson 03-01-2021 Auth for Release of Medical Records [id number]#1.00CD:127 Normal [facility] Reminderson 02-16-2021 Reminders - From: Elsa Erickson LPN To: [facility] - Clinical; Sent: 02/16/2021 08:31:52 EST Show up: 01/10/2026 08:00:00 EST Subject: colonoscopy recall Due Date/Time: 02/09/2026 08:00:00 EST Reminder/Recall Patient is due for colonoscopy 02/09/2026 due to history of tubular adenoma. Normal [facility] Ambulatory Clinical Summaryo n 02-15-2021 Ambulatory Clinical Summary {[id number]}CD:61 4368 Normal [facility] General Surgery Office/Clini c Noteon 02-15-2021 General Surgery Office/Clinic Note CD:[id number]:[id number] CbmydTju9vqkr6hBF9fKpArjpIb UUzwWk7er8vdMU23mj5nKaDyRa7 +QnbdAN1GCXcLMWNu aY0qCLAPNupZFdDtBC7fFpRRGf8 WLVFnTEeQOQuyPT6eBRE4ergfuE 1cKZ8oAXTvxROcGm9rx3v8 OtbhWw5iCe1MHy06jTQunNUjVVD EY1eywB9gXB5xvYZtC7KhUPHrZd 6CJTe6uAkmmM8umdU4Iul4 eMC1At75y4jeylEfh8BfUaG9LQn roZt4yNwaNVtguP0pVqUsTCWOoK 2cuJxrBR5rpB2aodTcwRcd biI+LmjrKHMdIua6wJCpFO57Q6D qjTarWjd0sVO2WOHctLFrDAWjnX n4ICUWPGRTVBOafTXloBdr sJWkKQIfsaYdbiZ1HloKHYXpDbK cAgf5R0kdNLJ+Kaygb5I6Cfp0HT l9NZI9gKutKUGmw474MJQw xBotuLrygSRjb76fICNnlJSgLrD ob136RXHpytP9ZLukiOsdCge6eL FiuCFqs2jqyGh5KwOrAZCy QoaZSZMkvJktm1TgQisMXBcoo7k jubGekUplCVV7p0LoNUhbJXEpRZ A5TpIoTQ8+CgkJPGNvbCB2 KDazS726CyUpmKCzj0vggIc8PmO 1PQCfPk3VRHklM58cB2RwjLD+Cg z3uYAdEMz+CgkJPHRyPgoJ NQp0gSXwi5Q8qAY7MoNbflUhb7l 1HPixLHE9ViO7XBK5yMZcyY6fpB vyeobxnW9cHmU+CgkJCTxk nSFkS6aam0A3BeZau2ChpFsdpmS mEWIpBgDrh0aaUgghUKFrvP0lOZ X1JyBbGQMtyYPmRQVpJS7y qhEnuXOkSEDqHaPmF4Uqo93wl9F gRQZSQ1nXVvJqZKR1OQ0bQlMoRN 0iXzljNGYzNmVlLWFlZGYt XXMuYR86VAl2RNFbDSEpOODlAfA 4ClHmo8R7nMB8ViRuNPXardy9BG RweDsiPjxzcGFuIGNsYXNz SLQwDKDdV9Ect15reRPbpDJ8Mm6 7u9EvuyJkuUuhIC6hHe8unA51VI kokAZ2UHZeeQA2PMShmPXz XJSwd4XjzMvkkcsowI9rMMRrrP3 lOyI+O0kmHRNdL55bxXjslP94IL 4ciBEvXpyop7Codv4ZQPcK LEQuwkYuzRExfv3dTQCxkNPcz90 9MC73QwFfFLysi854FF14tGvtPS 6sLLFBS5LVTY0VFSMCBiKu OUiyDOWzblHxK4X0zLlsLJJZV3U 6DnN5DO4AEiUtLTXTC2QyMmTkVs 2PH1AQLFsUZoT5UbEvYGnx YTWaVEixJCA1FhibNFZ1XQ59L1K wABV3BJNyNWBlQfHaMWn7NbrpTn 8FBCuTINCxpaBmzCUtwc3n QRRtnWLqm885CY97aRJnoJGtVIN xnP18WQNgWCLxxIX4Fb59RbJ1OS X6EB8lKDJnVPVfOTCiDxL3 Qa61NrNtZSBiUCVzPQYjKbGjt9E rk9TfhbN0yIToVRCrbEjyeeN3sX ctMHw6ZpmBQAf9Y3Ghmv4A NRmJVP8rjBC+CitVOJu1GCk8TTB kVPGvTIXyHRXgQ0Msr41hJUJeVP SdWDJjUPLePZTtXMzfu9Ly iXZmISR2IQf5NQWrviUaa1RrRdo fWkPxSJhwGBF9eB9tR18vDO3lLK 1RGlFjIMWiXxUuBsYxrTI9 So8iDUXyDqriNk0aNXzaGVC6ZdC rCQSdJs38VLetJTNmMSn8JlGoPZ E0jSoyCBZhMOUdxS0iBhN4 eDe3Ai44l4NjxuFngUIvre6yETW fHJR8iT2xWJalgMkysII+PHNwYW 1lh0Z2uMY6KrJlahWdk5Fx L4i3SgOoa0scPoX3OEy9AFUkV93 iWPLgr562BULxQHCulQdkTVahMi yQVQZKfXDuTzgoj4Nfsr50 S2KpZI8+EruHQSl9ZFh2PPMqVYB zPSJkZGVtcmNvbnRlbnQiIGRkOm TjgzLbejR0kZWtVTWSIXAX CRMSY57UMDPlJZSxQhKfUsTkJS3 oUIP1zKA2DmO6IPSINSVjFJm3QW EbQTF3Sl3TCcXuAFFXBJWG YafqSOI5QtJfbNO0Dy90TyToSuW mVg4bDOC3DOFiULZvLEKxHZ35Q2 V0Vvk6XKAaFBXxBcjHEMp8 JMz9XFJsZIKxZLHhHJXxskKmtaJ klzBacQRrROJchrGzp6MfWwfhGp BvQEzesN9toK5mrNsyB5Y8 mOleSQU6k6RfdisffIIzCIHyXyY bmfChawS3xPSwAPBTDBKAHHVXM5 2WACVjDMKeQaYprJe2rAum ZLBpMWyiDNEzNQI9WIQgKeghZkZ 9OT04TKF3XDHwQzHnOVWcOHHyU3 MjEtQoXnI0sJvlibqvDD9l SIgiVX3aJ2DrK3IiHW68TBHfr10 sEowHCJf1QUv8GUM4oXdlZTZjRZ VptW54KSUpuQRivD62MYWd QSCwiqc3HERtcCgtIs3aIIYlPlE jwBYekikeDJOxAETsXBGoQvV1AX i5YAKkaAluFdEnKRL9QgDe y6ombqximtfqQTQoHQWwSVSfPvV 6XUg2WHejKYBhbEdoYOzwGkQoh1 03LDQ5lZitHaBxw6LsLUu8 NZPujmVfk3MxK7a1UgAjr9TgAQg 9VATciEUqWKCro1KvkPfqyyloth 0aEHxeXroLEPe2JNy4Zfzk LH9ilFD3Zj32UWPeAYgaXK68MJR aHEQhZvFvKCMvEl7oXXd6XUgzH0 DjNJPkQlrbLT4LBlfKVPgc aXY+HpNlZRydrN3oqACdtJFoYGT dmfDgFp0prY81APWtZFMvs2NdBN aQLOsayNdtNK10txNeQZKf GOLoRZU0yikbAGVqv2LkiQBgRNY kRRIzd3qzgl5wM94jkMM7yVJbNX IjB3DjSFuyEdPxi0hdboAo obYdpqSvlTXvODTddMsfYTG6w51 vIGInALEqdaRbpgVvpbC2jLGiTG OpZI9dqC2lbMZkUMmaTumo YOf0AbvBPRh9J9Julw4GAXaLPG4 kaXY+PxcEIXqcLAn2JspKXIx1U0 Vvbv6VQLbGDK4pdFX+CgoJ ESo8SIt4ZJOdASMyLALfWRPfQ6C lu00ySKAxGQBmEGHrJMWeHZJdNQ hiu6AvpQEuMSH0LUr0PDKj skZel2CxYpxeLnXwLSloDGG2sQ6 jN87bMW7aZX8GGiPzGHKeBgRdDd FjaCR2Eo7fWEKuJfCtJW85 MYskIFJ3YNGgYILqNi4rMqKvQLU hHzT3SqRyGVU7gQtiCPGzBHHncA 4hXoF8jSc1Uk34e6UmbfMb zEFqnz4sRPFsZUV4sR1aWQxuzEj heSI+QVVlHB9fe6X3fQO8AbTrxo Rid8PhM4d0GuMvc8mkFeP1 VSb8PKPwH61jVUZlv406LGMxJLX gfLowWUtbYofrx8Swcojwu4SwUG Ofz9EnfIELsDcyNADhXF7s iDNlRcjpr6Aybf8STkjAEBqukDZ vZ4bcb1P8YrZgDL0aB69pbRVxhB AdDMX1U62fS1XotY7yXVDA IcIiJFgsw758TV87qNhnJS2fIV6 DI5CJUVLeYQHhHbAzHwUmGA0qDK K1oGM3UuZqIiBeXdJ9XPL2 WTQbCMUXJd04RnhNRQUEXjR1T9Z 4P7O1NCOmtOP7Mc3eFJniWQEuTH 8gTkejVSRbFDBmOHK6Rg9j RqYeNNJ4XUobVFMwHtlHURr9OZp 2IGNsYXNzPSJkZGVtcmNvbnRlbn GhmNYjFmGhNEyyl510RK70 cYywDH6rKGKSH3AXAO5UWYGNQyB tTQmsmgAiaKnjMQ3yCCe2MmZ4HH I3CgQvPCM1TP15uSB0vjXm s6gnhq2sGvQbuQV1Kp92KlOkUJO 3MD5hInNkIED8XMSfKJBkFA59DY X5ZhXpICB9FMJwAcdRHVk5 IQb1GMWlRKQeXCEjTCNozATzfbV coBPmLKD4VO53sEO6nVK0lUV7pT E3ZdGbj3BczHWywPSqdQV1 Nw23IUd9UBFtCQ2tOSHpGIBkZXE rEtkzDC3jWSB6LyKzQvOuPTJwNq tZRJd4DPw2DDHgBQMwMNSl QRMeCBN0QIg9SHFvikWrv1ApOdc sGlXbHDlvqA2dhV5yoGrtJ7X2xP pfFEN3g5FxkrdfuHAwOKpz QACiSeYuXeZeVvTaWBEzGc32SPF zQRDdN8FsEYxfNIKeNEVvBVW2Xc 7yYOvqNWvben5oTWHBLD5b m7wtpf8lY35zmZE4tAZjGKnal8L gcUQqZgjttFAsNBYrSM9fSIXleY 7uQPNwgPotYDC5y305ZEfu QzxwdK3uC9QkusFgS2MgbGGkhHj zLCBsaWtlbHkgZnJvbSBiaWxlIH WtXxk1vCpotlUtSKRchwLw Rw7eJEnbbCvzj3KjBkCalDRiyXV 2rLL3uNEzTNUiCB0kqUBfyV1qLW UcYREorV7zMVSqZTO8EZkp kW0agGUeuWinNWZwhHRruDytXlU gHVQ7hkVbedIsK46lx21mf0g2lC UfgKLxlX8cS4yrQXzhsYQ5 nPDjvMFmh2RbcNRfxR4oVXBrksW xMRHaCWQbCMzcKWJevyM9jHJ4PM d4VG8wi8KzYI4txUJuSVW6 b1SdWQ41G2Fgwl5BDBiBLX2eoOW +FquIGDdcPNm5ZtzRBNj4A8Oban 5ZTPyWTM5pyXB+CgoJCQk8 JIp0GOFmVEDvLCFuLNRnM7Aag93 gZGRyZWZyZXNoYWJsZSBkZGluc2 IefOWaNXL0OPv4OHQuolRe h6QsMxxxTcCeDWxnEFQ4bK5rP29 nEZ6bXZ6IVqWvRQHaBDixXiJjxH S1Rc44OjOeRCX1KY4hZ1U5 L (more content not included)... Normal [facility] Comment on above: Result Comment: Elec tronically Signed By: ANGEL BARRIOS, Neel Gamboa\Date and Time Signed: 02/15/21 15:08 EST Pathology Noteon 02-14-2021 Pathology Note [id number]#1.00CD:127 Normal [facility] Outside Colonoscopyon 2020 Outside Colonoscopy [id number]#1.00CD:127 [facility] Lab Reportson 02-07-2021 Lab Reports [id number]#1.00CD:127 [facility] Pre-Certification Formon Pre-Certification Form [id number]#1.00CD:127 [facility] Consent for Procedure/Surger yon 01-19-2021 Consent for Procedure/Surgery [id number]#1.00CD:127 [facility] Provider Letter FTon 01-19 Provider Letter [facility] January 19, 2021 AMADOR ABDALLA, [address] [place] [address] Re: ELIF TURNER Date of : 1945 Thank you for your referral of Elif Turner who was seen on consultation on 01/18/2021 for epigastric pain with nausea. An EGD and colonoscopy are planned for further evaluation. I have enclosed my consultation note for your review. I will be happy to follow Elif. Sincerely, Neel Razo MD General Surgery [facility] Ambulatory Clinical Summaryo n 01-18-2021 Ambulatory Clinical Summary {[id number]}CD:61 4368 [facility] Physician Referralon 021 Physician Referral [id number]#1.00CD:127 [facility] Consultation Noteon 12-07-19 21 Consultation Note [id number]#1.00CD:127 [facility] CNOVon 09-19-2017 CNOV Office Visit (VASSFT) -------ELIF TURNER ([id number]) 1945 [facility] Time Provider Department09/19/17 11:30 AM CHIDI MELLO During your visit today, we recorded the following information about you: Pulse Respiration Blood pressure Weight 52/minute 16/minute 115/46 93.4 kg Height 1.626 Margarita Mello MD 09/19/2017 11:59 AM [facility] [place] [facility] Department of Cardiovascular MedicineOUTPATIENT VISIT DATE September 19, 2017OUTPATIENT VISIT TYPENEWPRIMARY CARE PHYSICIAN:Amador Abdalla MD ([facility])[address], [place] [address]Xmvbj: [phone]: [phone] PHYSICIANChrisyi Wilkins MD[address] [place] [address]DONNI COMPLAINT:No chief complaint on file.HISTORY OF PRESENT [...] s/p PCI. On ASA, statin.HUMBERTO/PVR performed at [facility], right 0.94, left 1.14.PAST MEDICAL HISTORYDiagnosis Date- [...] Rash- Prochlorperazine UnknownMEDICATIONS:medical supply, miscellaneous (COMMODE PAIL [facility]) USE DIRECTEDVENTOLIN HFA 90 mcg/actuation inhaleramLODIPine (NORVASC) [...] mouth twice daily.ONETOUCH DELICA LANCETS 30 gauge [facility] twice daily. TEST TWICE DAILYlosartan-hydrochloroth iazide (HYZAAR) [...] of podiatry.Chidi Mello, [place] Provider: AMAYA WILKINS [[id number]]Allergies As of Date: 09/19/2017 Noted Allergy ReactionCLINDAMYCIN [...] with type 2 diabetes mellitus ([facility]) [E11.42] PAD (peripheral artery disease) ([facility]) [I73.9]Prescriptions as of 09/19/2017 Sig: COMMODE [...] to improve.Follow-up and Disposition History RecordedEncounter Number: [id number] Status:Closed by CHIDI MELLO MD on 09/19/17 Normal [facility] PROGRESSon 09-19-2017 Protein mass conc HNO ID: [id number] thor: Chidi Feldman: (none)Author Type: PhysicianType: Progress NotesFiled: 09/19/2017 11:59 AMNote Text:[facility] Institute[facility] [place] [facility] Department of Cardiovascular MedicineOUTPATIENT VISIT DATE September 19, 2017OUTPATIENT VISIT TYPENEWPRIMARY CARE PHYSICIAN:Amador Abdalla MD ([facility])[address] [place], [place] [address]Euhrs: [phone]: [phone] PHYSICIANChkiah Wilkins MD[address] [place] [address]FMVFJ COMPLAINT:No chief complaint on file.HISTORY OF PRESENT ILLNESS:Elif Turner was referred for consultation by Dr. Zach Wilkins.Opinions and recommendations in this consultation will be transmitted backto the referring physician by [facility] notes or via mail.Ms. Turner is a 72 year old female who is seen today for evaluation fordiscomfort in the arch of her feet and mild discomfort in the legs whenwalking.Her walking is limited by osteoarthritis of the knees, hips and lowerback. She uses a walker.She has difficulty in maintaining her glucose levels.Hx of CAD s/p PCI. On ASA, statin.HUMBERTO/PVR performed at [facility], right 0.94, left 1.14.PAST MEDICAL HISTORYDiagnosis Date- [...] tablet Take 1 tablet by mouth twice daily.TawkersTOUCH DELICA LANCETS 30 gauge misc twice daily. [...] Dr Wilkins of podiatry.Chidi Mello MD Normal [facility] Vital Signs Date Time Vital Sign Value Performing Clinician Facility 06-25-2021 12:15-0400 Body temperature 98.1 [degF] MD Amador Abdalla Work Phone: [facility] 06-25-2021 12:15-0400 Diastolic blood pressure 72 mm[Hg] MD Amador Abdalla Work Phone: [facility] 06-25-2021 12:15-0400 Heart rate 64 /min MD Amador Abdalla Work Phone: [facility] 06-25-2021 12:15-0400 Respiratory rate 18 /min MD Amador Abdalla Work Phone: [facility] 06-25-2021 12:15-0400 SaO2% (BldA) [Mass fraction] 96 % MD Amador Abdalla Work Phone: [facility] 06-25-2021 12:15-0400 Systolic blood pressure 127 mm[Hg] MD Amador Abdalla Work Phone: [facility] 06-25-2021 08:00-0400 Inhaled oxygen flow rate 3 L/min MD Amador Abdalla Work Phone: [facility] 06-25-2021 06:00-0400 Body weight 93.5 kg MD Amador Abdalla Work Phone: [facility] 06-24-2021 04:05-0400 Body height 162.56 cm MD Amador Abdalla Work Phone: [facility] 06-24-2021 04:05-0400 Body mass index (BMI) [Ratio] 34.9 kg/m2 MD Amador Abdalla Work Phone: [facility] 06-23-2021 19:30-0400 Diastolic blood pressure 61 mm[Hg] [facility] [employer] 06-23-2021 19:30-0400 Heart rate 80 /min [facility] 06-23-2021 19:30-0400 Respiratory rate 16 /min [facility] 06-23-2021 19:30-0400 SaO2% (BldA) [Mass fraction] 98 % [facility] 06-23-2021 19:30-0400 Systolic blood pressure 132 mm[Hg] [facility] [facility] [employer] Encounters Encounter Date Encounter Type Care Provider Facility Start: 11-12-2023 End: 11-12-2023 ambulatory AMADOR ABDALLA Not Available Start: 08-20-2023 End: 08-20-2023 ambulatory [facility] Start: 04-26-2023 End: 04-26-2023 ambulatory AMAYA WILKINS Not Available Start: 03-13-2023 End: 03-13-2023 ambulatory AMADOR ABDALLA Not Available Start: 01-31-2023 End: 01-31-2023 ambulatory CHRISTOPHER [facility] Start: 10-12-2022 Rx Renewal Zafar Chavira n DO Work Phone: [facility] 250 DO Work Phone: Start: 08-29-2022 End: 08-29-2022 ambulatory ALFREDO [facility] Start: 07-03-2022 End: 07-04-[address] AMADOR ABDALLA Facility:[facility] Start: 05-26-2022 End: 05-26-[address] AMADOR ABDALLA Facility:[facility] Start: 05-14-2022 End: 05-16-[address] AMADOR ABDALLA Facility:[facility] Start: 05-04-2022 End: 05-05-[address] AMADOR ABDALLA Facility:[facility] Start: 12-01-2021 End: 12-02-[address] AMADOR ABDALLA Facility:[facility] Start: 10-20-2021 Rx Renewal Zafar Readdo mcfadden DO Work Phone: [facility] 250 DO Work Phone: Start: 09-09-2021 End: [...] Start: 06-25-2021 End: 07-29-2021 ambulatory UNKNOWN PROVIDER [facility] Start: 06-24-2021 End: 06-25-2021 Evaluation and management of inpatient Amador Abdalla Facility:[facility] Start: 06-24-2021 End: 06-25-2021 Evaluation and management of inpatient MD Amador Abdalla Work Phone: [facility] [place] [facility] Start: 06-23-2021 End: 06-23-2021 ambulatory [facility] Emergenc y Triage, Treat and Transport Start: 06-23-2021 End: 06-23-2021 Emergency department patient visit [facility] Emergency Triage, Treat and Transport Comment on above: Arrived Start: 11-21-2018 End: 11-24-2018 Patient encounter procedure KELLI HANKISN Facility:[facility] Start: 09-19-2017 End: 09-19-[address] [facility] Procedures Date Procedure Procedure Detail Performing Clinician Start: 06-24-2021 CL Iliac/Fem w/LHC MD Karin Abdalla Work Phone: Start: 06-24-2021 CL PCI MEDICAL CERTIFICATION SPECIALIST 1st Vesse l RCA BAMBI MD Amador Abdalla Work Phone: Start: 06-24-2021 Insertion of cathete r into urinary bladder MD Amador Abdalla Work Phone: Start: 06-24-2021 Therapeutic injectio n iv push each new drug MD Amador Abdalla Work Phone: Start: 06-24-2021 MD Amador snowden Work Phone: Plan of Treatment Date Care Activity Detail Author Start: 06-24-2021 Plain chest X-ray XR chest 1V portable [facility] Start: 07-10-2012 Pneumococcal vaccination Pneumococcal Vaccine(s) (65+ yrs) (1 - PCV) [facility] Start: 07-10-2012 Screening for osteoporosis Bone Densitometry [facility] Start: 07-10-1997 Measurement of occult blood in single stool specimen [facility] Start: 07-10-1997 Screening for malignant neoplasm [...] Screening for malignant neoplasm of colon Colonoscopy [facility] Patient Education Coronary Angio plasty (DC) Liraglutide Angina (DC) Drug Eluting Stents [facility] Work Phone: Patient referral [facility] Work Phone: Payers Date Payer Category Payer Medicare [id number] 2021 Self-pay [id number] 1957 Medicaid [id number] 1957 Medicare [id number] 01 [id number] 1957 Unknown [id number] 1945 Unknown [id number] 2.16.8 40.1.067260.3.579.2.647 1945 Unknown [id number] 2.16. 840.1.261510.3.579.2.732 1945 Unknown [id number] 2.16.84 0.1.772440.3.579.2.593 1945 Unknown [id number] 2.16.84 0.1.033901.3.579.2.593 1945 Unknown [id number] 2.16.84 0.1.821324.3.579.2.593 1945 Unknown [id number] 2.16.84 0.1.376941.3.579.2.593 1945 Unknown [id number] 2.16.84 0.1.128904.3.579.2.593 1945 Unknown [id number] 2.16.84 0.1.237621.3.579.2.593 1945 Unknown [id number] 2.16.84 0.1.794621.3.579.2.593 1945 Unknown [id number] 2.16.84 0.1.219286.3.579.2.593 1945 Unknown [id number] 2.16.84 0.1.692056.3.579.2.593 1945 Unknown [id number] 2.16.84 0.1.569999.3.579.2.593 1945 Unknown [id number] 2.16.84 0.1.689332.3.579.2.593 1945 Unknown [id number] 2.16.84 0.1.002466.3.579.2.593 1945 Unknown [id number] 2.16.84 0.1.177824.3.579.2.593 1945 Unknown [id number] 2.16.84 0.1.750308.3.579.2.1259 1945 Unknown [id number] 2.16.84 0.1.098150.3.579.2.1259 1945 Unknown [id number] 2.16.84 0.1.527174.3.579.2.1259 Medicare [id number] Unknown Unknown [id number] 2.16.8 40.1.109067.3.579.2.531 Social History Date Type Detail Facility Tobacco smoking status [facility] Tobacco smoking consumption unknown [facility] Work Phone: Start: 1945 Sex Assigned At Not on file [facility] Start: 06-24-2021 Tobacco smoking status NHIS Never smoked tobacco (finding) [facility] Start: 1945 Sex Assigned At Female F [facility] Goals Date Patient Goal Desired Activity /State Functional Status Date Assessment Result Facility 06-25-2021 Functional status Patient at Baseline [facility] Work Phone: Mental Status Date Assessment Result Facility 06-25-2021 Cognitive function Cognitive Sta tus Patient is Progressing Toward Baseline [facility] Work Phone: Clinical Notes 01-18-2021 to 08-20-2023 Note Date & Type Note Facility 08-20-2023 Note [place] [facility] Subjective Elif Turner is a [...] Problem List Diagnosis Coronary artery disease involving [place] coronary artery of [place] heart without angina pectoris CKD stage 4 [...] Most recently she was admitted to the [facility] and transferred to [facility] due to decompensated diastolic heart failure in the setting of UTI. She underwent right heart catheterization that showed significantly elevated filling pressures and pulmonary hypertension. She underwent diuresis. Her renal function at discharge (more content not included)... [facility] 01-31-2023 Note Cardiovascular Medic ine [facility] SUBJECTIVE Chief Complaint Patient presents [...] sinus rhythm at 94 bpm, old inferior OR, comparable to prior ECG. Visit of 07/18/2017: [...] Most recently she was admitted to the [facility] and transferred to [facility] due to decompensated diastolic heart failure in [...] 58. (more content not included)... [facility] 01-31-2023 Note Patient here for [...] systems reviewed and are negative. [facility] 08-29-2022 Note SUBJECTIVE: Chief complaint: [...] History: Diagnosis Date CHF (congestive heart failure) ([facility]) Chronic kidney disease Coronary artery disease Diabetes mellitus ([facility]) H/O total hysterectomy Heart attack ([facility]) Hyperlipidemia Hypertension Past Surgical History: Procedure [...] and at bedtime., Disp: , Rfl: HYDROcodone-acetaminophen ([place]) 5-325 mg tablet, Take 1 tablet by [...] mg (more content not included)... [facility] 06-25-2021 Progress note Note Date/Time June 25, 2021 11:18am [facility] [address] [place] [address] Cardiology Progress Note Signed Patient: Elif Turner MR#: [id number] : 1945 Acct:[id number] Age/Sex: 75 / F Adm Date: 2 Loc: Room: [address] [place] [address] Type : ADM IN Attending Dr: Rusty [...] previous stents approximately 7 years ago in [place] details of which are unknown She really routinely follows with cardiology and saw her database operator 3 months ago with no symptoms Comorbidities are noted for diabetes, obesity, hyperlipidemia, chronic kidney disease and essential hypertension Mrs. Turner is doing well today status post PCI to the RCA (MEDICAL CERTIFICATION SPECIALIST) done per Dr. Bolivar yesterday. 2 drug-eluting [...] MPV Neut % (Auto) Lymph % (Auto) [place] % (Auto) Eos % (Auto) Baso % (Auto) Neut # (Auto) Lymph # (Auto) [place] # (Auto) Eos # (Auto) Baso # [...] % (Auto) 90.9 Lymph % (Auto) 4.3 [place] % (Auto) 4.5 Eos % (Auto) 0.0 Baso % (Auto) 0.3 Neut # (Auto) 9.6 H Lymph # (Auto) 0.4 L [place] # (Auto) 0.5 Eos # (Auto) 0.0 Baso # (Auto) 0.0 Nucleated RBC % (auto) 0.0 PT INR APTT POC Glucose 322 294 POC Glucose Comment Troponin I High Sens 06/25/21 06/25/21 06/25/21 05:24 05:24 07:51 Corrected WBC Uncorrected WBC Count RBC Hgb Hct MCV MCH MCHC RDW Plt Count MPV Neut % (Auto) Lymph % (Auto) [place] % (Auto) Eos % (Auto) Baso % (Auto) Neut # (Auto) Lymph # (Auto) [place] # (Auto) Eos # (Auto) Baso # [...] days. Patient may follow-up with her primary database operator in [place] and should do so within 10 days [...] Code(s): I25.10 - Atherosclerotic heart disease of [place] coronary artery without angina pectoris Status: Acute Plan: Recommendations as above (4) Diabetes: Assessment/Problem Details: Primary wagon driver of risk for ongoing progressive coronary heart disease. Code(s): E11.9 - Type 2 diabetes mellitus without complications Status: Acute Plan: Okay to resume oral metformin in 24 hours. Aggressive glycemic control and control of serum insulin levels is recommended. (5) HTN (hypertension): Assessment/Problem Details: Also major wagon driver for risk of progressive/recurrent coronary heart disease Code(s): I10 - Essential (primary) hypertension Status: Acute Plan: Low-sodium DASH?2 diet is recommended Maintain medical therapy as outlined above. Within the construct of phase 2 monitored cardiac rehabilitation, a minimum 10% total body weight loss is strongly recommended Plan Okay for discharge to home today. Patient may follow-up with her primary database operator in [place] within 10 days. Again, as mentioned above, enrollment in phase2 monitored cardiac rehabilitation is strongly recommended Time spent with patient Time Spent With Patient (min): 30 Documented By: Andrea Marinelli MD 06/25/21 1116 Signed By: <Electronically signed by Andrea Marinelli MD> 06/25/21 1127 [facility] Work Phone: 1(253) 268-797005-07-2022 History of Present illness Narrative* Andreas Freitas MD - 06/25/2021 10:50 AM EDT Images from the original note were not included. EMERGENCY TRIAGE, TREAT AND TRANSPORT (ET3) DOCUMENTATION OF TELEHEALTH VISIT Date / Time: 06/23/20211929 Name: Elif Turner : 1945 SSN: (Not on file) EMS Agency: [facility] [x] Verbal consent obtained [] [...] vomiting, fever. She does have nausea. She [id number] due to the chest pain, but the [...] by: Andreas Freitas MD documented in this [id number] Progress note Author Rusty Amor [facility] June 24, 2021 4:36pm Note Date/Time June 24, 2021 3:50pm [facility] [address] [place] [address] Hospitalist Progress Note Signed Patient: Elif Turner MR#: [id number] : 1945 Acct:[id number] Age/Sex: 75 / F Adm Date: 2 Loc: Room: [address] [place] [address] Type : ADM IN Attending Dr: Rusty [...] of care and confirmed it with the resident/student/ELECTRICIAN ASSISTANT. Patient was seen and examined at bedside [...] Dextrose-0.45 % Nacl IV 06/24/21 16:59 .Q10H [facility] Nitroglycerin/Dextrose 50 mg in 250 mls @ 1.5 mls/hr 06/24/21 15:30 Nitroglycerin 50 Mg-*D5w* IV 06/24/22 15:29 .Q24H [facility] Protocol 5 MCG/MIN Insulin Aspart 0 units 06/24/21 08:00 06/24/21 12:10 Insulin Aspart 300 Units/3 Ml Insuln.Pen SUBCUT 06/24/22 07:59 Not Given TID.WM.HS [facility] Protocol Insulin Detemir 10 units 06/24/21 22:00 Insulin Detemir 300 Units/3 Ml Insuln.Pen SUBCUT 06/24/22 21:59 QHS [facility] Lidocaine HCl 10 ml 06/24/21 13:52 [...] Montelukast 10 Mg Tablet PO 06/24/22 21:59 [facility] Nitroglycerin 0.4 mg 06/24/21 05:27 Nitroglycerin [...] CKD ?BUN 32 and creatinine 2.05 at [facility] yesterday Continue home medications. PT/OT Full code Rapid COVID-negative at [facility] Documented By: Nick Carr DO, RES 06/24/21 154 7 Signed By: <Electronically signed by DO JOSE DE JESUS Carr> 06/24/21 1633 <Electronically signed by Rusty Amor MD> 06/24/21 1636 [facility] Work Phone: 1(311) 822-847905-06-2022 Consult note Author W Osmel [facility] June 24, 2021 2:02pm Note Date/Time June 24, 2021 12:55p m [facility] [address] [place] [address] Cardiology Consult Note Signed Patient: Elif Turner MR#: [id number] : 1945 Acct:[id number] Age/Sex: 75 / F Adm Date: 2 Loc: 4 Room: [address] [place] [address] Type : ADM IN Attending Dr: Rusty Amor MD Copies to: MD Amador Winston MD W Scott Sheldon, DO~ Cardiology HPI History of Present Illness Consult Date: 06/24/21 Reason for Consult: Non-ST elevation OR HPI: Ms. Turner is a 75 year [...] previous stents approximately 7 years ago in [place] details of which are unknown She really routinely follows with cardiology and saw her database operator 3 months ago with no symptoms Comorbidities [...] x10E3/uL Lymph # (Auto) 1.8 (1.00-4.8) x10E3/uL [place] # (Auto) 0.6 (0.0-0.8) x10E3/uL Eos # [...] Code(s): I25.10 - Atherosclerotic heart disease of [place] coronary artery without angina pectoris (4) Diabetes: Code(s): E11.9 - Type 2 diabetes mellitus without complications (5) HTN (hypertension): Code(s): I10 - Essential (primary) hypertension Documented By: Gen Bolivar DO 06/24/21 1248 Signed By: <Electronically signed by Gen Bolivar DO> 06/24/21 3926 [facility] Work Phone: 1(820) 593-926005-06-2022 Procedure [facility]05-06-2022 Procedure [facility]05-06-2022 History and physical note Author Xander Nam [facility] June 24, 2021 6:14am Note Date/Time June 24, 2021 5:14am [facility] [address] [place] [address] Hospitalist H&P Signed Patient: Elif Turner MR#: [id number] : 1945 Acct:[id number] Age/Sex: 75 / F Adm Date: 2 Loc: 4 Room: [address] [place] [address] Type : ADM IN Attending Dr: Xander [...] type II, fibromyalgia, CKD who [facility] to [facility] yesterdaywith intermittent chest pain that started in the afternoon while she was watching TV with associated shortness of breath. She described this pain as pressure that involved her left chest as well as left breast and axilla. She presented to the [facility] emergency department and blood pressure was 160/71 [...] and 12 units/kg/h. She was transferred to [facility] for cardiac care for NSTEMI. The patient denied fever/chills, N/V, constipation/diarrhea. She does have history of chronic headaches however notes worsening of headache since yesterday. She does take Lasix as well with as needed for pedal edema. On evaluation at [facility], patient continues to endorse resting chest pain however diminished since initial presentation at [facility]. Per RN she was saturating 94% on [...] yesterday afternoon. ?Chest x-ray unremarkable ?EKG at [facility] normal sinus rhythm with no acute ischemia ?At [facility] troponin 162.6 with repeat 658.9. Repeat at [facility] ordered. ?Patient received bolus porcine heparin at 60 units/kg at [facility] with maintenance at 12 units/kg/h. Maintenance will be continued here. ?Coreg initiated at 12.5 mg twice daily. We will hold amlodipine pending cardiology recommendation. ?Continue losartan. ? Hold amlodipine and lasix pending cardiology consult. ?Cardiology consult ?Morphine for severe pain. Target pulse ox greater than 90%. Nitro for worsening chest pain. Received 324 mg aspirin at [facility]. 2. Coronary artery disease ?Status post 2 stents 5 and 7 years ago respectively per patient ?Continue atorvastatin 40 mg and 81 mg aspirin 3. Diabetes ?Hold home metformin and glipizide ?Initiate basal detemir 10 units with sliding scale coverage 4. CKD ?BUN 32 and creatinine 2.05 at [facility] yesterday Continue home medications. PT/OT Full code Rapid COVID-negative at [facility] Attending Provider Attestation Attending Physician Attestation: I personally saw this patient on the day of the encounter, reviewed the history,performed the cruz elements of the exam, formulated the plan of care and confirmed the resident's/intern product marketing manager/medical student's dictation/written note. Documented By: Marlon Leon DO, JOSE DE JESUS 06/24/21 050 4 Signed By: <Electronically signed by DO JOSE DE JESUS Leon> 06/24/21 0537 <Electronically signed by Xander Ortiz MD> 06/24/21 0614 [facility] Work Phone: 1(213) 671-718311-30-2021 NoteChief Complaint consultation for epigastric pain HPI [...] Flonase 0.05 mg/inh nasa (more content not included)...[facility]Comment on [facility]:Result Comment: Electronically Signed By: ANGEL BARRIOS, Neel Gamboa\Date and Time Signed: 01/18/21 20:28 ESTDischarge summary Author Rusty Amor [facility] June 25, 2021 1:30pm Note Date/Time June 25, 2021 1:30pm [facility] [address] [place] [address] Discharge Summary Signed Patient: Elif Turner MR#: [id number] : 1945 Acct:[id number] Age/Sex: 75 / F Adm Date: 2 Loc: Room: [address] [place] [address]: Rusty Amor MD Copies to: [...] She presented to the emergency department of [facility] on June 24, complaining of chest discomfort. Her troponins were abnormal. She was transferred to our hospital with a diagnosis of non-STEMI. She was taken to the [facility] on June 25, where she underwent coronary [...] W Domingo Bolivar DO s CL PCI MEDICAL CERTIFICATION SPECIALIST 1st Vessel RCA BAMBI - W Domingo [...] % (Auto) 90.9, Lymph % (Auto) 4.3, [place] % (Auto) 4.5, Eos % (Auto) 0.0, Baso % (Auto) 0.3, Neut # (Auto) 9.6 H, Lymph # (Auto) 0.4 L, [place] # (Auto)0.5, Eos # (Auto) 0.0, Baso [...] doctor or pharmacist, without first calling the database operator who implanted the stent. If you require [...] weight lifting, stair steppers, etc. until the database operator approves these activities. Check with the database operator on your first follow-up visit. CALL YOUR PHYSICIAN at [phone]: -If bleeding should occur from the catheter insertion site- apply pressure to the site then immediately call us. -Report any fever, redness, drainage, increased swelling, or firmness at the catheter insertion site. Some bruising or slight swelling may be present at thetime of discharge. -Should arm or leg become cold, numb, white, or blue, contact the database operator immediately. -IF you should experience episodes of [...] is recommended. Please call Central Scheduling at [phone] to schedule your appointment.] The attending database operator or [facility] nurse clinician should provide you with specific instructions regarding activity, diet, medications, and further follow up for you. Follow the medication instructions provided on your discharge. If the dosages and instructions on this sheet differ from the dosage and instructions on the bottle, follow the instructions on the bottle. [facility] is not responsible for incorrect prescription [...] Sunday to schedule follow- up with your Skin Care Instructor. ) Documented By: Rusty Amor MD 06/25/21 1326 Signed By: <Electronically signed by Rusty Amor MD> 06/25/21 1332 [facility] Work Phone: Evaluation note* Diagnosis Chest pain, unspecified type- Primary PND (paroxysmal nocturnal dyspnea) Other dyspnea and respiratory abnormality [facility] Diagnosis Onset Date Resolution Status CAD (coronary artery disease) acute Chronic kidney disease acute Depression acute Diabetes acute Fibromyalgia acute GERD (gastroesophageal reflux disease) acute HTN (hypertension) acute NSTEMI (non-ST elevated myocardial infarction) acute [facility] Work Phone: Hospital Discharge instructionsAmbulatory Orders* [...] doctor or pharmacist, without first calling the database operator who implanted the stent. If you require [...] weight lifting, stair steppers, etc. until the database operator approves these activities. Check with the database operator on your first follow-up visit. CALL YOUR PHYSICIAN at [phone]: -If bleeding should occur from the catheter insertion site- apply pressure to the site then immediately call us. -Report any fever, redness, drainage, increased swelling, or firmness at the catheter insertion site. Some bruising or slight swelling may be present at the time of discharge. -Should arm or leg become cold, numb, white, or blue, contact the database operator immediately. -IF you should experience episodes of [...] is recommended. Please call Central Scheduling at [phone] to schedule your appointment.] The attending database operator or [facility] nurse clinician should provide you with specific instructions regarding activity, diet, medications, and further follow up for you. Follow the medication instructions provided on your discharge. If the dosages and instructions on this sheet differ from the dosage and instructions on the bottle, follow the instructions on the bottle. [facility] is not responsible for incorrect prescription information provided by the patient during their visit. Do not stop your medications without consulting your health care provider. Please take the list with you to your next doctor's appointment. Home Health to manage care: - Full code - PT/OT eval and treat - Routine [facility] signsMartin [facility] Work Phone: Summary Purpose Family History [...] section and content) DATE CREATED AUTHOR 09/19/2017 [facility] DATE CREATED AUTHOR AUTHOR'S ORGANIZ ATION 11/23/2019 [facility] DATE CREATED AUTHOR AUTHOR'S ORGANIZ ATION 05/07/2021 [facility] DATE CREATED AUTHOR AUTHOR'S ORGANIZ ATION 07/30/2021 [facility] DATE CREATED AUTHOR AUTHOR'S ORGANIZ ATION 03/25/[address] [facility] DATE CREATED AUTHOR AUTHOR'S ORGANIZ ATION 07/05/2022 [facility] DATE CREATED AUTHOR AUTHOR'S ORGANIZ ATION 08/21/2023 [facility] DATE CREATED AUTHOR AUTHOR'S ORGANIZ ATION 11/14/2023 [facility] dical Specialists EPIC Reason for Visit [...] BE BASED ON THE PRIMARY CLINICAL RECORDS. [facility] [employer] [facility]. provides no warranty or guarantee of the accuracy or completeness of information in this document.
--- NOTE | 2023-11-18 14:34 | P.HP_ITS ---
HPI H&P: HPI History of Present Illness Chief complaint: FALL, RHABDOMYOLYSIS Narrative: 78-year-old female, lives by herself independently, uses a walker to ambulate fell at home while trying to use the restroom on Sunday afternoon. Patient was unable to get up and laid on the floor until this morning she was able to drag herself to the front door and shouted for help. Patient was seen by her primary care physician about a week ago for increasing weakness/unsteady gait was prescribed oral Bactrim for UTI. Patient reports that she has had 3 falls at home within past 1 week and she is increasingly unsteady on her feet and is complaining of generalized weakness. Workup in ER revealed elevated CK levels, acute kidney injury, leukocytosis and poorly controlled blood pressure with systolic blood pressure as high as 260 upon arrival. She had not taken her oral medications from the morning as she was unable to get up and walk. She is complaining of neck pain and bilateral knee pain. She denies losing consciousness or head trauma. She subjectively feels a little bit better after initial IV hydration in ER. Opioid HPI Opioid Management Most Recent Pain and Opioid Data: 2 Last Pain Scale 4 11/18/23 14:09 Last Pain Assessment 11/18/23 14:09 Last ORT Total Score 0 11/18/23 13:18 Last ORT Risk Category Low Risk 11/18/23 13:18 Review of Systems ROS Status of ROS 10 or more systems reviewed and unremark able except as noted in history and below [facility] Medical History (Updated 11/18/23 @ 14:46 by Shaikh Toñito MD) HTN (hypertension) ?I10 - Essential (primary) hypertension (ICD-10) HLD (hyperlipidemia) ?E78.5 - Hyperlipidemia, unspecified (ICD-10) CAD (coronary artery disease) ?I25.10 - Atherosclerotic heart disease of [place] coronary artery without angina pectoris (ICD-10) History of heart attack ?I25.2 - Old myocardial infarction (ICD-10) History of stroke ?Z86.73 - Personal history of transient ischemic attack (TIA), and cerebral infarction without residual deficits (ICD-10) Diabetes ?E11.9 - Type 2 diabetes mellitus without complications (ICD-10) Surgical History (Updated 11/18/23 @ 12:47 by Leona Mario LPN) History of heart artery stent ?Z95.5 - Presence of coronary angioplasty implant and graft (ICD-10) Hx of cholecystectomy ?Z90.49 - Acquired absence of other specified parts of digestive tract (ICD- 10) H/O hernia repair ?Z98.890 - Other specified postprocedural states (ICD-10) ?Z87.19 - Personal history of other diseases of the digestive system (ICD-10) Family History (Updated 11/18/23 @ 12:46 by Leona Mario LPN) Mother Family history of COPD (chronic obstructive pulmonary disease) Family history of cancer Family history of diabetes mellitus Father Family history of hypertension Social History (Updated 11/18/23 @ 12:49 by Leona Mario LPN) Within the past year, how often did you have a drink containing alcohol: never Within the past year, how often did you have six or more drinks on one occasion: never Score interpretation: A score less than 3 is consistent with normal alcohol consumption. Smoking status: Never smoker Second hand tobacco smoke exposure: No Non-prescribed substance use: denies use Previous occupational history: retired Known occupational exposures/hazards: No Highest level of school completed/degree received: high school graduate Are you now , , , , never or living with a partner: In a typical week, how many times do you talk on the telephone with family, friends, or neighbors: 3 or more times per week How often do you get together with friends or relatives: 3 or more times per week How often do you attend adventism or yazidism services: never Do you belong to any clubs or organizations such as adventism groups unions, fraternal or athletic groups, or school groups: no Total score: 1 Score interpretation: A score of less than or equal to 1 indicates the most socially isolated. Little interest or pleasure in doing things: not at all Feeling down, depressed, or hopeless: not at all Feel stressed/tense/nervous/anxious/difficulty sleeping: not at all Due to disability, difficulty making decisions: No Do you think of yourself as: straight/heterosexual Gender Identity: female Meds Home Medications and Allergies Home Medications ?Medication ?Instructions ?Recorded ?Confirmed ?Type alprazolam 0.5 mg tablet 0.5 mg PO TID PRN anxiety 11/18/23 11/18/23 History amlodipine 10 mg tablet 10 mg PO DAILY 11/18/23 11/18/23 History atorvastatin 80 mg tablet 80 mg PO .QHS 11/18/23 11/18/23 History bupropion HCl 150 mg 24 hr tablet, 150 mg PO DAILY 11/18/23 11/18/23 History extended release carvedilol 6.25 mg tablet 6.25 mg PO BID 11/18/23 11/18/23 History cholecalciferol (vitamin D3) 25 25 mcg PO DAILY 11/18/23 11/18/23 History mcg (1,000 unit) tablet famotidine 40 mg tablet 40 mg PO DAILY 11/18/23 11/18/23 History furosemide 20 mg tablet 20 mg PO DAILY 11/18/23 11/18/23 History hydralazine 100 mg tablet 100 mg PO TID 11/18/23 11/18/23 History hydrocodone 5 mg-acetaminophen 325 1 tab PO Q8H PRN pain (scale score 11/18/23 11/18/23 History mg tablet 7-10) montelukast 10 mg tablet 10 mg PO .QHS 11/18/23 11/18/23 History nystatin 100,000 unit/gram topical 1 applic topical TID 11/18/23 11/18/23 History powder (Klayesta) pantoprazole 40 mg tablet,delayed 40 mg PO BID 11/18/23 11/18/23 History release paroxetine HCl 40 mg tablet 40 mg PO DAILY 11/18/23 11/18/23 History sitagliptin phosphate 25 mg tablet 25 mg PO DAILY 11/18/23 11/18/23 History (Shanika) sucralfate 1 gram tablet 1 g PO .QHS 11/18/23 11/18/23 History temazepam 15 mg capsule 15 mg PO .QHS 11/18/23 11/18/23 History Allergies Allergy/AdvReac Type Severity Reaction Status Date / Time cyclobenzaprine Allergy Severe Rash Verified 11/18/23 09:28 [From Flexeril] ethinyl estradiol Allergy Severe Swelling Verified 11/18/23 09:33 [From [place]ora (28)] of Lip/Tongue/Throat exenatide [From [place]] Allergy Severe Rash Verified 11/18/23 09:28 Iodinated Contrast Media Allergy Severe Rash Verified 11/18/23 09:28 levonorgestrel Allergy Severe Swelling Verified 11/18/23 09:33 [From [place] (28)] of Lip/Tongue/Throat Penicillins Allergy Severe Rash Verified 11/18/23 09:28 prochlorperazine Allergy Severe Confusion Verified 11/18/23 09:28 [From Compazine] clindamycin [From Cleocin] AdvReac Severe esophagus Verified 11/18/23 09:28 spasms doxycycline AdvReac Severe Nausea Verified 11/18/23 09:28 levofloxacin AdvReac Severe Nausea Verified 11/18/23 09:28 ticagrelor [From Brilinta] AdvReac Severe Vomiting Verified 11/18/23 09:28 trazodone AdvReac Severe Nausea Verified 11/18/23 09:28 Exam Constitutional Vital Signs, click to edit/add: Last Vital Signs Temp 98.0 F 11/18/23 14:05 Pulse 80 11/18/23 14:05 Resp 18 11/18/23 14:05 BP 159/71 H 11/18/23 14:05 Pulse Ox 95 11/18/23 14:05 O2 Del Method Room Air 11/18/23 14:05 Documenting provider has reviewed patient's vital signs: yes Common normals: no apparent distress and oriented x3 General appearance: cooperative and frail appearing Eye Common normals: conjunctivae normal and no scleral icterus Conjunctiva: conjunctiva(e) normal Respiratory Common normals: normal respiratory effort and clear to auscultation bilaterally Effort & inspection: able to speak in complete sentences Auscultation: clear to auscultation bilaterally Cardio Common normals: regular rate, S1 normal heart sound and S2 normal heart sound Rate: regular rate Heart sounds: S1 normal and S2 normal GI Common normals: Normal to inspection, nondistended, normoactive bowel sounds present, soft to palpation, non-tender and no hepatosplenomegaly Palpation: soft and no hepatosplenomegaly Extremity Common normals: no clubbing, cyanosis or edema Neuro Common normals: oriented x3, moves all extremities and no focal motor deficits Psych Common normals: mental status grossly normal, denies hallucinations, denies homicidal ideation and denies suicidal ideation Results Labs Labs: Short CBC 11/18/23 Range/Units 09:45 WBC 15.5 H (4.0-11.0) 10^3/uL Hgb 14.0 (12.0-16.0) g/dL Hct 42.7 (36.0-48.0) % Plt Count 258 (150-450) 10^3/uL BMP 11/18/23 09:58 Sodium 135 L Potassium 4.1 Chloride 100 Carbon Dioxide 25.1 BUN 28.0 H Creatinine 1.85 H Glucose 394 H Calcium 10.2 H Cardiac Enzymes 11/18/23 Range/Units 09:58 Total Creatine Kinase 340 H* (26-192) U/L Urine 11/18/23 Range/Units 10:10 Urine Color Yellow (YELLOW) Urine Clarity Clear (CLEAR) Urine pH 6.5 (5.0-9.0) Ur Specific Felch 1.020 (1.005-1.025) Urine Protein >=300 A (NEG/TRACE) mg/dL Urine Glucose (UA) >=1000 A (NEGATIVE) mg/dL Assessment and Plan Assessment and Plan (1) Fall: Assessment and Plan: Mechanical fall. PT/OT evaluation. No acute injury noted. No acute finding on CTH/Hip XR. Qualifiers: Encounter type: subsequent encounter Qualified Code(s): W19.XXXD - Unspecified fall, subsequent encounter (2) Generalized weakness: Assessment and Plan: Generalized weakness likely secondary to UTI. PT/OT evaluation. It seems like she will benefit from inpatient rehab as she has had 3 falls within past 1 week (3) Rhabdomyolysis: Assessment and Plan: Mild rhabdomyolysis with acute kidney injury. Continue with IV hydration. Monitor renal function closely Qualifiers: Rhabdomyolysis type: non-traumatic Qualified Code(s): M62.82 - Rhab domyolysis (4) JAKI (acute kidney injury): Assessment and Plan: She has normal baseline renal function. Presented with creatinine of 1.8. Likely prerenal and due to dehydration. Continue with IV hydration. Monitor urine output and serum creatinine possibly. (5) Hypertensive urgency: Assessment and Plan: Blood pressure initially poorly controlled when she presented. Her blood pressure was 260/120 upon arrival. Likely because of pain/anxiety. Improved and is reasonable now but is still above goal. Resume patient's oral medications. IV hydralazine as needed (6) HTN (hypertension): Assessment and Plan: Above goal and initially poorly controlled likely because she did not take her medication, she was in pain and also anxious. Resume patient's home medications. IV hydralazine as needed Qualifiers: Hypertension type: primary hypertension Qualified Code(s): I10 - Marilyn tial (primary) hypertension (7) UTI (urinary tract infection): Assessment and Plan: Patient was being treated for UTI with oral Bactrim. Hold Bactrim due to acute kidney injury. Change to IV Rocephin. Qualifiers: Urinary tract infection type: acute cystitis Hematuria presence: without hematuria Qualified Code(s): N30.00 - Acute cystitis without hematuria (8) Leukocytosis: Assessment and Plan: Likely secondary to dehydration/reactive along with UTI. Continue with IV Rocephin. Monitor closely. No evidence of infection on chest x-ray. Qualifiers: Leukocytosis type: leukemoid reaction Qualified Code(s): D72.823 - Leukemoid reaction (9) Diabetes: Assessment and Plan: Sliding scale insulin while inpatient. Hold oral hypoglycemics. Qualifiers: Diabetes mellitus type: type 2 Diabetes mellitus intermission coordinator insulin use: without intermission coordinator use Diabetes mellitus complication status: without complication Qualified Code(s): E11.9 - Type 2 diabetes mellitus without complications (10) Elevated troponin: Assessment and Plan: Prior history of coronary artery disease. No active chest pain or symptoms suggestive of underlying cardiac ischemia. Continue with aspirin, statin. Monitor closely. Trend troponin (11) CAD (coronary artery disease): Assessment and Plan: No symptoms to suggest active cardiac ischemia. Continue with aspirin, statin. Qualifiers: Coronary Disease-Associated Artery/Lesion type: [place] artery [place] vs. transplanted heart: [place] heart Associated angina: without angina Qualified Code(s): I25.10 - Atherosclerotic heart disease of [place] coronary artery without angina pectoris (12) HLD (hyperlipidemia): Assessment and Plan: Continue with Lipitor. Qualifiers: Hyperlipidemia type: unspecified Qualified Code(s): E78.5 - Hyperlipidemia, unspecified
[2023-11-18 14:51] LABS: Troponin I High Sensitivity 63.2 pg/mL (4.0-51.3)
[2023-11-18] MEDS: AMLODIPINE BESYLATE 5 MG TABLET 10 MG PO (14:56)
[2023-11-18] MEDS: CARVEDILOL 6.25 MG TABLET PO ×2 (14:56→21:08)
[2023-11-18] MEDS: HYDRALAZINE HCL 50 MG TABLET 100 MG PO ×2 (14:56→21:08)
[2023-11-18] MEDS: HEPARIN SODIUM (PORCINE) 5,000 UNIT/ML VIAL 5000 UNIT SUBQ ×2 (14:56→21:08)
[2023-11-18] MEDS: NYSTATIN 15 GM POWDER 1 APPLIC TOPICAL ×2 (14:57→21:09)
[2023-11-18 16:02] LABS: Glucometer 389 mg/dL (74-106)
[2023-11-18] MEDS: ASPIRIN 81 MG TAB.CHEW PO (16:09)
[2023-11-18] MEDS: INSULIN ASPART 300 UNIT/3 ML PEN SUBQ ×2 (16:09→21:10)
[2023-11-18] MEDS: CEFTRIAXONE 1,000 MG in 0.9 % SODIUM CHLORIDE 50 ML 100 MG IV (17:06)
[2023-11-18] MEDS: 0.9 % SODIUM CHLORIDE 1,000 ML 1000 ML IV (17:55)
[2023-11-18] MEDS: 0.9 % SODIUM CHLORIDE 1,000 ML 125 ML IV (19:12)
[2023-11-18] MEDS: HYDRALAZINE HCL 20 MG/ML VIAL 10 MG IVP (19:37)
[2023-11-18 20:05] LABS: Glucometer 262 mg/dL (74-106)
[2023-11-18] MEDS: OMEPRAZOLE 40 MG CAPSULE.DR PO (21:08)
[2023-11-18] MEDS: ATORVASTATIN CALCIUM 40 MG TABLET 80 MG PO (21:08)
[2023-11-18] MEDS: ACETAMINOPHEN 325 MG TABLET 650 MG PO (21:09)
[2023-11-18] MEDS: MONTELUKAST SODIUM 10 MG TABLET PO (21:09)
[2023-11-18] MEDS: TEMAZEPAM 15 MG CAPSULE PO (21:09)
[2023-11-19] VITALS (13 sets, daily range): BP systolic 157–191; BP diastolic 69–73; PULSE 73–92; TEMP 36.4–36.7; O2SAT 92–95
[2023-11-19] MEDS: 0.9 % SODIUM CHLORIDE 1,000 ML 125 ML IV ×2 (03:12→11:14)
[2023-11-19] MEDS: NYSTATIN 15 GM POWDER 1 APPLIC TOPICAL ×2 (05:17→13:31)
[2023-11-19] MEDS: HYDRALAZINE HCL 50 MG TABLET 100 MG PO ×2 (05:17→13:18)
[2023-11-19] MEDS: HEPARIN SODIUM (PORCINE) 5,000 UNIT/ML VIAL 5000 UNIT SUBQ ×2 (05:17→13:18)
--- OUTSIDE RECORDS SUMMARY | 2023-11-19 06:09 | XMS_ITS | CCD ---
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 Name Role Phone CHIDI MELLO Unavailable Unavailable [...] Provider MD Isabel Beckwith Other Provider [phone] MD Rufus Sauceda Other Provider ARIEL Resendiz [...] Consulting Unavailable TYSON, DR ANN Attending Unavailable TYOSN, DR ANN Admitting Unavailable MOUKARBEL, DR FIGUEROA [...] Unavailable YUSRA, ELY Admitting Unavailable NADERER, DR MAADOR Arcos Primary Care Unavailable YUSRA, ELY Attending [...] Contrast media; Translations: [DYE] Substance Allergy 06-03-19 [facility] cyclobenzaprine (1 source) cyclobenzaprine; Translations: [CYCLOBENZAPRINE] Drug Allergy 12-12-19 13 [facility] Doxycycline (1 source) Doxycycline; Translations: [DOXYCYCLINE] Drug Allergy 12-22-19 [facility] exenatide (1 source) exenatide; Translations: [EXENATIDE] Drug Allergy 12-28-19 13 [facility] Lincosamides (antibiotic) (1 source) Clindamycin; Translations: [CLINDAMYCIN] Drug Allergy 05-27-19 [facility] Opioid Agonists (1 source) Codeine; Translations: [CODEINE] Drug Allergy 12-28-19 [facility] Penicillins (antibiotic) (1 source) Penicillins; Translations: [PENICILLINS] Drug Allergy 12-12-19 13 [facility] Prochlorperazine (1 source) Prochlorperazine; Translations: [PROCHLORPERAZINE] Drug Allergy 12-12-19 13 [facility] Serotonin Reuptake Inhibitors (SSRIs) (1 source) traZODone; Translations: [TRAZODONE] Drug Allergy 12-19-19 [facility] Sucralfate (1 source) Sucralfate; Translations: [SUCRALFATE] Drug Allergy 12-22-19 [facility] Ticagrelor (1 source) Ticagrelor; Translations: [TICAGRELOR] Drug Allergy 06-03-19 [facility] Unclassified (1 source) OTHER; Translations: [OTHER] Propensity to adverse reactions (disorder) 12-12-19 13 [facility] (4 sources) Clindamycin Drug Allergy 04-05-19 16 Difficulty Swallowing [facility] (1 source) Codeine Drug Allergy 12-31-19 09 [facility] (1 source) cyclobenzaprine Drug Allergy 12-31-19 09 [facility] (3 sources) exenatide Drug Allergy 08-26-19 17 [facility] (3 sources) Penicillins Drug allergy (disorder) 12-31-19 09 Itching [facility] (1 source) Prochlorperazine Drug Allergy 12-31-19 09 [facility] (2 sources) Iodinated Contrast Media - IV Dye Drug allergy (disorder) 12-31-19 09 [facility] (1 source) trival; Translations: [trival] Propensity to adverse reactions (disorder) 12-17-19 13 [facility] (4 sources) Amoxicillin; Translations: [amoxicillin] Drug Allergy 06-25-19 Unknown Reaction [facility] (4 sources) cyclobenzaprine; Translations: [cyclobenzaprine] Drug Allergy 06-25-19 Itching [facility] (5 sources) Doxycycline; Translations: [doxycycline] Drug Allergy 06-25-19 Unknown Reaction [facility] (4 sources) exenatide; Translations: [exenatide] Drug Allergy 06-25-19 Rash [facility] (4 sources) Prochlorperazine; Translations: [prochlorperazine] Drug Allergy 05-06-20 22 Cramping of the Muscles [facility] (5 sources) Sucralfate; Translations: [sucralfate] Drug Allergy 06-25-19 Nausea [facility] (6 sources) traZODone; Translations: [trazodone] Drug Allergy 06-25-19 22 Nausea [facility] (3 sources) Iodinated Contrast Media; Translations: [Iodinated Contrast Media] Allergy to substance 02-07-20 14 Itching [facility] (2 sources) Clindamycin; Translations: [clindamycin] [facility] Work [facility]: (2 sources) Penicillins; Translations: [Penicillins] Allergy to drug (finding) [facility] Work Phone: (1 source) Clindamycin Drug Allergy 06-25-19 [facility] (1 source) Penicillins Drug allergy (disorder) 06-25-19 [facility] (1 source) Clindamycin Drug Allergy [facility] Rep[facility] (1 source) cyclobenzaprine Drug Allergy [facility] (1 source) Levamisole Drug Allergy 12-03-19 21 [facility] (1 source) liraglutide Drug Allergy 07-16-19 22 [facility] (1 source) Prochlorperazine Drug Allergy [facility] Repository (2 sources) [place] (28) Drug allergy (disorder) [facility] (1 source) Misc-Drug Drug allergy (disorder) [facility] Medications Current Medications Medication Drug [...] Coronary arteriosclerosis; Translations: [Atherosclerotic heart disease of [place] coronary artery without angina pectoris] Onset: 2 [...] 3 Chronic Other aftercare (1 source) 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; Translations: [OTH CASHIER GREETER CURRENT DRUG THERAPY] Onset: 3 Episodic Other aftercare (1 source) 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; Translations: [CASHIER GREETER CURRENT USE OF ASPIRIN] Onset: 3 Episodic [...] Onset: 08-16-2021 Episodic Other aftercare (1 source) [facility] (current) use of oral hypoglycemic drugs; Translations: [LONG-TERM USE ORAL HYPOGLYCEMIC DX] Onset: 08-18-2021 Episodic [...] [facility] Office Visiton 08-20-2023 Follow-up visit [id number] Irma Turner 1945 F Date Provider Department Center 08/20/2023 CAROLINA MARCOS CHARLES Arnold Family History Problem Relation Age of Onset Breast cancer Mother Stroke Father Family Status - Relation Status Age at Mother Father Level of Service:17285 [place] OFFICE/OUTPATIENT ESTABLISHED MOD MDM 30 MIN Normal [facility] 36on 03-05-2023 36 Please let her know her recent carotid ultrasound showed things were stable. Plan for a follow-up ultrasound in 1 year. Follow-up in 6 months. Thanks! Normal [facility] Telephoneon 03-05-2023 Telephone [id number] Irma Turner 1945 F Date Provider Department Center 03/05/2023 CHRISTOPHER SHIN . Family History Problem Relation Age of Onset Breast cancer Mother Stroke Father Family Status - Relation Status Age at Mother Father Normal [facility] Office Visiton 01-31-2023 Follow-up visit [id number] Irma Turner 1945 Provider Department Center 01/31/2023 CHRISTOPHER SHIN [facility]LES [facility] Family History Problem Relation Age of Onset Breast cancer Mother Stroke Father Family Status - Relation Status Age at Mother Father Level of Service:04330 [place] OFFICE/OUTPATIENT ESTABLISHED MOD MDM 30-39 MIN Reason for Visit and Comments: Congestive Heart Failure [127] Hypertension [296174] Carotid Artery Disease [453] Normal [facility] Consulton 08-29-2022 Consult [id number] Irma Turner 1945 Provider Department Center 08/29/2022 ALFREDO SAAMNIEGO [facility] SURG [place] Family History Problem Relation Age of Onset Breast cancer Mother Stroke Father Family Status - Relation Status Age at Mother Father Level of Service:04938 [place] OFFICE/OUTPATIENT NEW MODERATE MDM 45-59 MINUTES Normal [facility] MRI BRAIN WO W CONon 023 [...] LISSETTE VILLALOBOS Date: 2022-07-04 09:08 Normal [facility] CREATININEon 07-03-2022 Creatinine [Mass/Vol] 1.87 mg/dL Critically high 0.55-1.02 [facility] Comment on above: Performed By: #### U ARMICR #### [facility] [address] [place] [address] Dr. Gasper Garber EGFR-AF EMIRATI 32 mL/min/1.73m2 Critically low >=60 [facility] Comment on above: Performed By: #### U ARMICR #### [facility] [address] [place] [address] Dr. Gasper Garber EGFR-NON AF EMIRATI 26 mL/min/1.73m2 Critically low >=60 [facility] Comment on above: Performed By: #### U ARMICR #### [facility] [address] [place] [address] Dr. Gasper Garber UA (CLEAN/CATCH) MICROSCOPIC IF INDICATEon 05-26-2022 Bilirubin Ql (U) Negative Normal NEGATIVE [facility] Comment on above: Performed By: #### U ARMICR #### [facility] [address] [place] [address] Dr. Gasper Garber Clarity (U) CLEAR Normal CLEAR [facility] Comment on above: Performed By: #### U ARMICR #### [facility] [address] [place] [address] Dr. Gasper Garber Color (U) LT. YELLOW Normal YELLOW [facility] Comment on above: Performed By: #### U ARMICR #### [facility] [address] [place] [address] Dr. Gasper Garber Glucose Ql (U) Negative Normal NEGATIVE [facility] Comment on above: Performed By: #### U ARMICR #### [facility] [address] [place] [address] Dr. Gasper Garber Hemoglobin Ql (U) Negative Normal NEGATIVE [facility] Comment on above: Performed By: #### U ARMICR #### [facility] [address] [address] [address] Gasper Garber Ketones Ql (U) Negative Normal NEGATIVE [facility] Comment on above: Performed By: #### U ARMICR #### [facility] [address] [place] [address] Dr. Gasper Garber LEUKOCYTES Negative Normal NEGATIVE [facility] Comment on above: Performed By: #### U ARMICR #### [facility] [address] [address] [address] Gasper Garber Nitrite Ql (U) Negative Normal NEGATIVE [facility] Comment on above: Performed By: #### U ARMICR #### [facility] [address] [place] [address] Dr. Gasper Garber pH (U) 6.5 [pH] Normal 5-9 [facility] Comment on above: Performed By: #### U ARMICR #### [facility] [address] [place] [address] Dr. Gasper Garber SPEC GRAVITY 1.010 Normal 1.005-<=1.[address] [place] [address] Comment on above: Performed By: #### U ARMICR #### [facility] [address] [place] [address] Dr. Gasper Garber UA PROTEIN TRACE Normal NEGATIVE/ TRACE [facility] Comment on above: Performed By: #### U ARMICR #### [facility] [address] [place] [address] Dr. Gasper Garber UR MICRO IND NOT INDICATED Normal [facility] Comment on above: Performed By: #### U ARMICR #### [facility] [address] [place] [address] Dr. Gasper Garber Urobilinogen Qn (U) 0.2 {Kaushik'U}/dL Normal 0.2 - 1. 0 [facility] Comment on above: Performed By: #### U ARMICR #### [facility] [address] [place] [address] Dr. Gasper Garber CULTURE URINEon 05-16-2022 CULTURE [...] S F Nitrofurantoin <=16 S F Normal [facility] Comment on above: Performed By: #### U RCX #### [facility] [address] [place] [address] Dr. Gasper Garber MAGNESIUMon 05-16-2022 Magnesium [Mass/Vol] 2.0 mg/dL Normal 1.8-2.4 [facility] Comment on above: Performed By: #### TONI MALDONADORO #### [facility] [address] [place] [address] Dr. Gasper Garber CBC AUTO DIFFon 05-15-2022 BASO # 0.0 103/ul Normal 0.0-0.1 [facility] Comment on above: Performed By: #### JOANNE MALDONADOICRO #### [facility] [address] [place] [address] Dr. Gasper Garber Basophils/100 WBC (Bld) 0.5 % Normal 0.2-2.0 [facility] Comment on above: Performed By: #### Bernice HERNDON UMICRO #### [facility] [address] [place] [address] Dr. Gasper Garber EO # 0.2 103/ul Normal 0.0-0.7 [facility] Comment on above: Performed By: #### Bernice HERNDON UMICRO #### [facility] [address] [place] [address] Dr. Gasper Garber Eosinophils/100 WBC (Bld) 1.8 % Normal 0.9-7.0 [facility] Comment on above: Performed By: #### Bernice HERNDON UMICRO #### [facility] [address] [place] [address] Dr. Gasper Garber Erythrocyte distribution width (RBC) [Ratio] 12.5 % Normal 11.0-15.0 [facility] Comment on above: Performed By: #### BERNIE MALDONADO #### [facility] [address] [place] [address] Dr. Gasepr Garber Hematocrit (Bld) [Volume fraction] 36.1 % Normal 36.0-48.0 [facility] Comment on above: Performed By: #### TONI MALDONADORO #### [facility] [address] [place] [address] Dr. Gasper Garber Hemoglobin (Bld) [Mass/Vol] 11.8 g/dL Critically low 12.0-16.0 [facility] Comment on above: Performed By: #### BERNIE MALDONADO #### [facility] [address] [place] [address] Dr. Gasper Garber IG # 0.02 10e3/ul Normal 0.00-0.03 [facility] Comment on above: Performed By: #### TONI MALDONADORO #### [facility] [address] [place] [address] Dr. Gasper Garber IG % 0.2 % Normal 0.0-0.5 [facility] Comment on above: Performed By: #### TONI MALDONADORO #### [facility] [address] [place] [address] Dr. Gasper Garber LYMPH # 1.2 103/ul Normal 1.2-3.8 [facility] Comment on above: Performed By: #### TONI MALDONADORO #### [facility] [address] [place] [address] Dr. Gasper Graber Lymphocytes/100 WBC (Bld) 14.2 % Critically low 20.5-60.0 [facility] Comment on above: Performed By: #### TONI MALDONADORO #### [facility] [address] [place] [address] Dr. Gasper Garber MANUAL DIFF REQ NO Normal [facility] Comment on above: Performed By: #### TONI MALDONADORO #### [facility] [address] [place] [address] Dr. Gasper Garber MCH (RBC) [Entitic mass] 30.6 pg Normal 26.7-34.0 [facility] Comment on above: Performed By: #### E YANICK, UMICRO #### [facility] [address] [place] [address] Dr. Gasper Garber MCHC (RBC) [Mass/Vol] 32.7 g/dL Normal 29.9-35.2 [facility] Comment on above: Performed By: #### E YANICK, UMICRO #### [facility] [address] [place] [address] Dr. Gasper Garber MCV (RBC) [Entitic vol] 93.8 fL Normal 81.0-99.0 [facility] Comment on above: Performed By: #### E YANICK UMICRO #### [facility] [address] [place] [address] Dr. Gasper Garber MONO # 1.0 103/ul Critically high 0.3-0.8 [facility] Comment on above: Performed By: #### Bernice HERNDON UMICRO #### [facility] [address] [place] [address] Dr. Gasper Garber Monocytes/100 WBC (Bld) 12.3 % Critically high 1.7-12.0 [facility] Comment on above: Performed By: #### Bernice HERNDON, UMICRO #### [facility] [address] [place] [address] Dr. Gasper Garber NEUT # 5.9 103/ul Normal 1.4-6.5 [facility] Comment on above: Performed By: #### E RUCrystal, UMICRO #### [facility] [address] [place] [address] Dr. Gasper Garber Neutrophils/100 WBC (Bld) 71.0 % Normal 43.0-75.0 [facility] Comment on above: Performed By: #### E RUR, UMICRO #### [facility] [address] [place] [address] Dr. Gasper Garber Platelet mean volume (Bld) [Entitic vol] 11.3 fL Normal 9.5-13.5 [facility] Comment on above: Performed By: #### TONI MALDONADORO #### [facility] [address] [place] [address] Dr. Gasper Garber PLT 237 103/ul Normal 150-450 [facility] Comment on above: Performed By: #### TONI MALDONADORO #### [facility] [address] [place] [address] Dr. Gasper Garber RBC 3.85 106/ul Critically low 4.20-5.[address] [facility] Comment on above: Performed By: #### TONI MALDONADORO #### [facility] [address] [place] [address] Dr. Gasper Garber WBC 8.4 103/ul Normal 4.0-11.0 [facility] Comment on above: Performed By: #### TONI MALDONADORO #### [facility] [address] [place] [address] Dr. Gasper Garber MAGNESIUMon 05-15-2022 Magnesium [Mass/Vol] 2.0 mg/dL Normal 1.8-2.4 [facility] Comment on above: Performed By: #### TONI MALDONADORO #### [facility] [address] [place] [address] Dr. Gasper Garber PROF 14(COMP METB)on 023 Albumin [Mass/Vol] 3.4 g/dL Normal 3.4-5.0 [facility] Comment on above: Performed By: #### TONI MALDONADORO #### [facility] [address] [place] [address] Dr. Gasper Garber Albumin/Globulin [Mass ratio] 1.0 {ratio} Normal [facility] Comment on above: Performed By: #### Bernice HERNDON UMICRO #### [facility] [address] [place] [address] Dr. Gasper Garber ALP [Catalytic activity/Vol] 70 U/L Normal 46-116 [facility] Comment on above: Performed By: #### Bernice HERNDON UMICRO #### [facility] [address] [place] [address] Dr. Gasper Garber ALT [Catalytic activity/Vol] 23 U/L Normal 14-59 [facility] Comment on above: Performed By: #### Bernice HERNDON UMICRO #### [facility] [address] [place] [address] Dr. Gasper Garber Anion gap [Moles/Vol] 12.2 mmol/L Normal [facility] Comment on above: Performed By: #### Bernice HERNDON UMICRO #### [facility] [address] [place] [address] Dr. Gasper Garber AST [Catalytic activity/Vol] 13 U/L Critically low 15-37 [facility] Comment on above: Performed By: #### Bernice HERNDON UMICRO #### [facility] [address] [place] [address] Dr. Gasper Garber Bilirubin [Mass/Vol] 0.6 mg/dL Normal 0.2-1.0 [facility] Comment on above: Performed By: #### Bernice HERNDON UMICRO #### [facility] [address] [place] [address] Dr. Gasper Garber Calcium [Mass/Vol] 9.6 mg/dL Normal 8.5-10.1 [facility] Comment on above: Performed By: #### Bernice HERNDON UMICRO #### [facility] [address] [place] [address] Dr. Gasper Garber Chloride [Moles/Vol] 106 mmol/L Normal 98-107 [facility] Comment on above: Performed By: #### E YANICK UMICRO #### [facility] [address] [place] [address] Dr. Gasper Garber CO2 [Moles/Vol] 29.0 mmol/L Normal 21.0-32.0 [facility] Comment on above: Performed By: #### E YANICK UMICRO #### [facility] [address] [place] [address] Dr. Gasper Garber Creatinine [Mass/Vol] 1.46 mg/dL Critically high 0.55-1.02 [facility] Comment on above: Performed By: #### BERNIE MALDONADO #### [facility] [address] [place] [address] Dr. aGsper Garber EGFR-AF EMIRATI 42 mL/min/1.73m2 Critically low >=60 [facility] Comment on above: Performed By: #### TONI MALDONADORO #### [facility] [address] [place] [address] Dr. Gasper Garber EGFR-NON AF EMIRATI 35 mL/min/1.73m2 Critically low >=60 [facility] Comment on above: Performed By: #### TONI MALDONADORO #### [facility] [address] [place] [address] Dr. Gasper Garber Globulin (S) [Mass/Vol] 3.3 g/dL Normal [facility] Comment on above: Performed By: #### TONI MALDONADORO #### [facility] [address] [place] [address] Dr. Gasper Garber Glucose [Mass/Vol] 154 mg/dL Critically high 74-[address] [facility] Comment on above: Performed By: #### TONI MALDONADORO #### [facility] [address] [place] [address] Dr. Gasper Garber Potassium [Moles/Vol] 3.2 mmol/L Critically low 3.5-5.1 [facility] Comment on above: Performed By: #### TONI MALDONADORO #### [facility] [address] [place] [address] Dr. Gasper Garber Protein [Mass/Vol] 6.7 g/dL Normal 6.4-8.2 [facility] Comment on above: Performed By: #### TONI MALDONADORO #### [facility] [address] [place] [address] Dr. Gasper Garber Sodium [Moles/Vol] 144 mmol/L Normal 136-145 [facility] Comment on above: Performed By: #### BERNIE MALDONADO #### [facility] [address] [place] [address] Dr. Gasper Garber Urea nitrogen [Mass/Vol] 28.0 mg/dL Critically high 7.0-18.0 [facility] Comment on above: Performed By: #### E TONI HERNDONRO #### [facility] [address] [place] [address] Dr. Gasper Garber Urea nitrogen/Creatinine [Mass ratio] 19.2 mg/mg Normal [facility] Comment on above: Performed By: #### E TONI HERNDONRO #### [facility] [address] [place] [address] Dr. Gasper Garber BNPon 05-14-2022 Natriuretic peptide B (Bld) [Mass/Vol] 1231.0 pg/mL Critically high <=900.0 [facility] Comment on above: Performed By: #### L ACT #### [facility] [address] [place] [address] Dr. Gasper Garber CARDIAC SEKOU ADMITon 023 CK [Catalytic activity/Vol] 30 U/L Normal 26-192 [facility] Comment on above: Performed By: #### L ACT #### [facility] [address] [place] [address] Dr. Gasper Garber CK.MB [Mass/Vol] 0.54 ng/mL Normal <=3.60 [facility] Comment on above: Performed By: #### L ACT #### [facility] [address] [place] [address] Dr. Gasper Garber HSTROP 9.8 pg/mL Normal 4.0-51.3 [facility] Comment on above: Result Comment: CUT- OFF POINTS HAVE BEEN ESTABLISHED BASED ON THE FOURTH UNIVERSAL DEFINITIONS OF MYOCARDIAL INFARCTION. THE UPPER REFERENCE LIMIT (URL) OF TROPONIN, DEFINED THE 99TH PERCENTILE OF cTnI DISTRIBUTION IN A REFERENCE POPULATION, HAS BEEN CONFIRMED THE DECISION THRESHOLD FOR MS DIAGNOSIS. Performed By: #### L ACT #### [facility] [address] [place] [address] Dr. Gasper Garber JUSTIN 62 ng/mL Normal 9-82 [facility] Comment on above: Performed By: #### L ACT #### [facility] [address] [place] [address] Dr. Gasper Garber CBC AUTO DIFFon 05-14-2022 BASO # 0.0 103/ul Normal 0.0-0.1 [facility] Comment on above: Performed By: #### U ARMICR #### [facility] [address] [place] [address] Dr. Gasper Garber Basophils/100 WBC (Bld) 0.4 % Normal 0.2-2.0 [facility] Comment on above: Performed By: #### U ARMICR #### [facility] [address] [place] [address] Dr. Gasper Garber EO # 0.2 103/ul Normal 0.0-0.7 [facility] Comment on above: Performed By: #### U ARMICR #### [facility] [address] [place] [address] Dr. Gasper Garber Eosinophils/100 WBC (Bld) 2.4 % Normal 0.9-7.0 [facility] Comment on above: Performed By: #### U ARMICR #### [facility] [address] [place] [address] Dr. Gasper Garber Erythrocyte distribution width (RBC) [Ratio] 12.7 % Normal 11.0-15.0 [facility] Comment on above: Performed By: #### U ARMICR #### [facility] [address] [place] [address] Dr. Gasper Garber Hematocrit (Bld) [Volume fraction] 36.4 % Normal 36.0-48.0 [facility] Comment on above: Performed By: #### U ARMICR #### [facility] [address] [place] [address] Dr. Gasper Garber Hemoglobin (Bld) [Mass/Vol] 11.7 g/dL Critically low 12.0-16.0 [facility] Comment on above: Performed By: #### U ARMICR #### [facility] [address] [place] [address] Dr. Gasper Garber IG # 0.03 10e3/ul Normal 0.00-0.03 [facility] Comment on above: Performed By: #### U ARMICR #### [facility] [address] [place] [address] Dr. Gasper Garber IG % 0.3 % Normal 0.0-0.5 [facility] Comment on above: Performed By: #### U ARMICR #### [facility] [address] [place] [address] Dr. Gasper Garber LYMPH # 1.9 103/ul Normal 1.2-3.8 [facility] Comment on above: Performed By: #### U ARMICR #### [facility] [address] [place] [address] Dr. Gasper Garber Lymphocytes/100 WBC (Bld) 20.2 % Critically low 20.5-60.0 [facility] Comment on above: Performed By: #### U ARMICR #### [facility] [address] [place] [address] Dr. Gasper Garber MANUAL DIFF REQ NO Normal [facility] Comment on above: Performed By: #### U ARMICR #### [facility] [address] [place] [address] Dr. Gasper Garber MCH (RBC) [Entitic mass] 30.8 pg Normal 26.7-34.0 [facility] Comment on above: Performed By: #### U ARMICR #### [facility] [address] [place] [address] Dr. Gasper Garber MCHC (RBC) [Mass/Vol] 32.1 g/dL Normal 29.9-35.2 [facility] Comment on above: Performed By: #### U ARMICR #### [facility] [address] [place] [address] Dr. Gasper Garber MCV (RBC) [Entitic vol] 95.8 fL Normal 81.0-99.0 [facility] Comment on above: Performed By: #### U ARMICR #### [facility] [address] [place] [address] Dr. Gasper Garber MONO # 1.2 103/ul Critically high 0.3-0.8 [facility] Comment on above: Performed By: #### U ARMICR #### [facility] [address] [place] [address] Dr. Gasper Garber Monocytes/100 WBC (Bld) 13.0 % Critically high 1.7-12.0 [facility] Comment on above: Performed By: #### U ARMICR #### [facility] [address] [place] [address] Dr. Gasper Garber NEUT # 5.8 103/ul Normal 1.4-6.5 [facility] Comment on above: Performed By: #### U ARMICR #### [facility] [address] [place] [address] Dr. Gasper Garber Neutrophils/100 WBC (Bld) 63.7 % Normal 43.0-75.0 [facility] Comment on above: Performed By: #### U ARMICR #### [facility] [address] [place] [address] Dr. Gasper Garber Platelet mean volume (Bld) [Entitic vol] 10.0 fL Normal 9.5-13.5 [facility] Comment on above: Performed By: #### U ARMICR #### [facility] [address] [place] [address] Dr. Gasper Garber PLT 251 103/ul Normal 150-450 [facility] Comment on above: Performed By: #### U ARMICR #### [facility] [address] [place] [address] Dr. Gasper Garber RBC 3.80 106/ul Critically low 4.20-5.40 [facility] Comment on above: Performed By: #### U ARMICR #### [facility] [address] [place] [address] Dr. Gasper Garber WBC 9.2 103/ul Normal 4.0-11.0 [facility] Comment on above: Performed By: #### U ARMICR #### [facility] [address] [place] [address] Dr. Gasper Garber BASO # 0.0 103/ul Normal 0.0-0.1 [facility] Comment on above: Performed By: #### U ARMICR #### [facility] [address] [place] [address] Dr. Gasper Garber Basophils/100 WBC (Bld) 0.0 % Critically low 0.2-2.0 [facility] Comment on above: Performed By: #### U ARMICR #### [facility] [address] [place] [address] Dr. Gasper Garber EO # 0.0 103/ul Normal 0.0-0.7 [facility] Comment on above: Performed By: #### U ARMICR #### [facility] [address] [place] [address] Dr. Gasper Garber Eosinophils/100 WBC (Bld) 0.0 % Critically low 0.9-7.0 [facility] Comment on above: Performed By: #### U ARMICR #### [facility] [address] [place] [address] Dr. Gasper Garber Erythrocyte distribution width (RBC) [Ratio] 12.1 % Normal 11.0-15.0 [facility] Comment on above: Performed By: #### U ARMICR #### [facility] [address] [place] [address] Dr. Gasper Garber Hematocrit (Bld) [Volume fraction] 37.9 % Normal 36.0-48.0 [facility] Comment on above: Performed By: #### U ARMICR #### [facility] [address] [place] [address] Dr. Gasper Garber Hemoglobin (Bld) [Mass/Vol] 12.2 g/dL Normal 12.0-16.0 [facility] Comment on above: Performed By: #### U ARMICR #### [facility] [address] [place] [address] Dr. Gasper Garber IG # 0.00 10e3/ul Normal 0.00-0.03 [facility] Comment on above: Performed By: #### U ARMICR #### [facility] [address] [address] [address] Gasper Garber IG % 0.0 % Normal 0.0-0.5 [facility] Comment on above: Performed By: #### U ARMICR #### [facility] [address] [address] [address] Gasper Garber LYMPH # 1.3 103/ul Normal 1.2-3.8 [facility] Comment on above: Performed By: #### U ARMICR #### [facility] [address] [address] [address] Gasper Garber Lymphocytes/100 WBC (Bld) 18.6 % Critically low 20.5-60.0 [facility] Comment on above: Performed By: #### U ARMICR #### [facility] [address] [address] [address] Gasper Garber MANUAL DIFF REQ NO Normal [facility] Comment on above: Performed By: #### U ARMICR #### [facility] [address] [address] [address] Gsaper Garber MCH (RBC) [Entitic mass] 30.7 pg Normal 26.7-34.0 [facility] Comment on above: Performed By: #### U ARMICR #### [facility] [address] [address] [address] Gasper Garber MCHC (RBC) [Mass/Vol] 32.2 g/dL Normal 29.9-35.2 [facility] Comment on above: Performed By: #### U ARMICR #### [facility] [address] [address] [address] Gasper Garber MCV (RBC) [Entitic vol] 95.5 fL Normal 81.0-99.0 [facility] Comment on above: Performed By: #### U ARMICR #### [facility] [address] [address] [address] Gasper Garber MONO # 0.8 103/ul Normal 0.3-0.8 [facility] Comment on above: Performed By: #### U ARMICR #### [facility] [address] [address] [address] Gasper Garber Monocytes/100 WBC (Bld) 11.6 % Normal 1.7-12.0 [facility] Comment on above: Performed By: #### U ARMICR #### [facility] [address] [address] [address] Gasper Garber NEUT # 5.0 103/ul Normal 1.4-6.5 [facility] Comment on above: Performed By: #### U ARMICR #### [facility] [address] [address] [address] Gasper Garber Neutrophils/100 WBC (Bld) 69.8 % Normal 43.0-75.0 [facility] Comment on above: Performed By: #### U ARMICR #### [facility] [address] [place] [address] Dr. Gasper Garber Platelet mean volume (Bld) [Entitic vol] 9.8 fL Normal 9.5-13.5 [facility] Comment on above: Performed By: #### U ARMICR #### [facility] [address] [address] [address] Gasepr Garber PLT 258 103/ul Normal 150-450 [facility] Comment on above: Performed By: #### U ARMICR #### [facility] [address] [address] [address] Gasper Garber RBC 3.97 106/ul Critically low 4.20-5.40 [facility] Comment on above: Performed By: #### U ARMICR #### [facility] [address] [address] [address] Gasper Garber WBC 7.1 103/ul Normal 4.0-11.0 [facility] Comment on above: Performed By: #### U ARMICR #### [facility] [address] [place] [address] HEAD WO CONon [...] Mild cervical spondylosis. Electronically authenticated by: [facility] Date: 2022-05-14 00:20 Normal [facility] Covid-19 PCR (CVDTB)on 04-20 SARS-CoV-2 (COVID-19) RNA ANA LUISA+probe Ql (Unsp spec) Not detected Normal NOT DETECTED [facility] Comment on above: Result Comment: When [...] for this test is supported by the [place] of [employer] and Human Service's declaration that [...] used). Performed By: #### L ACT #### [facility] [address] [place] [address] Dr. Gasper Garber ER URINE PROFILEon 3 Bilirubin Ql (U) Negative Normal NEGATIVE [facility] Comment on above: Performed By: #### A CETON #### [facility] [address] [place] [address] Dr. Gasper Garber Clarity (U) CLEAR Normal CLEAR [facility] Comment on above: Performed By: #### A CETON #### [facility] [address] [place] [address] Dr. Gasper Garber Color (U) LT. YELLOW Normal YELLOW [facility] Comment on above: Performed By: #### A CETON #### [facility] [address] [place] [address] Dr. Gasper Garber ERUAHD A micrscopic examina tion will be performed if indicated. Normal [facility] Comment on above: Performed By: #### A CETON #### [facility] [address] [place] [address] Dr. Gasper Garber Glucose Ql (U) Negative Normal NEGATIVE [facility] Comment on above: Performed By: #### A CETON #### [facility] [address] [place] [address] Dr. Gasper Garber Hemoglobin Ql (U) Negative Normal NEGATIVE [facility] Comment on above: Performed By: #### A CETON #### [facility] [address] [place] [address] Dr. Gasper Garber Ketones Ql (U) Negative Normal NEGATIVE [facility] Comment on above: Performed By: #### A CETON #### [facility] [address] [place] [address] Dr. Gasper Garber LEUKOCYTES Negative Normal NEGATIVE [facility] Comment on above: Performed By: #### A CETON #### [facility] [address] [place] [address] Dr. Gasper Garber Nitrite Ql (U) Positive Abnormal NEGATIVE [facility] Comment on above: Performed By: #### A CETON #### [facility] [address] [place] [address] Dr. Gasper Garber pH (U) 7.0 [pH] Normal 5-9 [facility] Comment on above: Performed By: #### A CETON #### [facility] [address] [place] [address] Dr. Gasper Garber SPEC GRAVITY <=1.005 Abnormal 1.005-<=1.0 25 [facility] Comment on above: Performed By: #### A CETON #### [facility] [address] [place] [address] Dr. Gasper Garber UA PROTEIN Negative Normal NEGATIVE/ TRACE [facility] Comment on above: Performed By: #### A CETON #### [facility] [address] [place] [address] Dr. Gasper Garber UR MICRO IND INDICATED Normal [facility] Comment on above: Performed By: #### A CETON #### [facility] [address] [place] [address] Dr. Gasper Garber Urobilinogen Qn (U) 0.2 {Kaushik'U}/dL Normal 0.2 - 1. 0 [facility] Comment on above: Performed By: #### A CETON #### [facility] [address] [place] [address] Dr. Gasper Garber MAGNESIUMon 05-14-2022 Magnesium [Mass/Vol] 2.4 mg/dL Normal 1.8-2.4 [facility] Comment on above: Performed By: #### Bernice HERNDON UMICRO #### [facility] [address] [place] [address] Dr. Gasper Garber PROF 14(COMP METB)on 023 Albumin [Mass/Vol] 3.5 g/dL Normal 3.4-5.0 [facility] Comment on above: Performed By: #### Bernice HERNDON UMICRO #### [facility] [address] [place] [address] Dr. Gasper Garber Albumin/Globulin [Mass ratio] 1.0 {ratio} Normal [facility] Comment on above: Performed By: #### Bernice HERNDON UMICRO #### [facility] [address] [place] [address] Dr. Gasper Garber ALP [Catalytic activity/Vol] 82 U/L Normal 46-116 [facility] Comment on above: Performed By: #### Bernice HERNDON UMICRO #### [facility] [address] [place] [address] Dr. Gasper Garber ALT [Catalytic activity/Vol] 22 U/L Normal 14-59 [facility] Comment on above: Performed By: #### Bernice HERNDON, UMICRO #### [facility] [address] [place] [address] Dr. Gasper Garber Anion gap [Moles/Vol] 11.1 mmol/L Normal [facility] Comment on above: Performed By: #### Bernice HERNDON, UMICRO #### [facility] [address] [place] [address] Dr. Gasper Garber AST [Catalytic activity/Vol] 14 U/L Critically low 15-37 [facility] Comment on above: Performed By: #### Bernice HERNDON, UMICRO #### [facility] [address] [place] [address] Dr. Gasper Garber Bilirubin [Mass/Vol] 0.5 mg/dL Normal 0.2-1.0 [facility] Comment on above: Performed By: #### BERNIE MALDONADO #### [facility] [address] [place] [address] Dr. Gasper Garber Calcium [Mass/Vol] 9.8 mg/dL Normal 8.5-10.1 [facility] Comment on above: Performed By: #### TONI MALDONADORO #### [facility] [address] [place] [address] Dr. Gasper Garber Chloride [Moles/Vol] 99 mmol/L Normal 98-107 [facility] Comment on above: Performed By: #### TONI MALDONADORO #### [facility] [address] [place] [address] Dr. Gasper Garber CO2 [Moles/Vol] 30.5 mmol/L Normal 21.0-32.0 [facility] Comment on above: Performed By: #### TONI MALDONADORO #### [facility] [address] [place] [address] Dr. Gasper Garber Creatinine [Mass/Vol] 1.75 mg/dL Critically high 0.55-1.02 [facility] Comment on above: Performed By: #### TONI MALDONADORO #### [facility] [address] [place] [address] Dr. Gasper Garber EGFR-AF EMIRATI 34 mL/min/1.73m2 Critically low >=60 [facility] Comment on above: Performed By: #### TONI MALDONADORO #### [facility] [address] [place] [address] Dr. Gasper Garber EGFR-NON AF EMIRATI 28 mL/min/1.73m2 Critically low >=60 [facility] Comment on above: Performed By: #### TONI MALDONADORO #### [facility] [address] [place] [address] Dr. Gasper Garber Globulin (S) [Mass/Vol] 3.4 g/dL Normal [facility] Comment on above: Performed By: #### TONI MALDONADORO #### [facility] [address] [address] [address] Gasper Garber Glucose [Mass/Vol] 154 mg/dL Critically high 74-106 [facility] Comment on above: Performed By: #### E MINR, UMICRO #### [facility] [address] [address] [address] Gasper Garber Potassium [Moles/Vol] 3.6 mmol/L Normal 3.5-5.1 [facility] Comment on above: Performed By: #### E MINR, UMICRO #### [facility] [address] [address] [address] Gasper Garber Protein [Mass/Vol] 6.9 g/dL Normal 6.4-8.2 [facility] Comment on above: Performed By: #### E YANICK, UMICRO #### [facility] [address] [place] [address] Dr. Gasper Garber Sodium [Moles/Vol] 137 mmol/L Normal 136-145 [facility] Comment on above: Performed By: #### E YANICK, UMICRO #### [facility] [address] [address] [address] Gasper Garber Urea nitrogen [Mass/Vol] 35.0 mg/dL Critically high 7.0-18.0 [facility] Comment on above: Performed By: #### E YANICK, UMICRO #### [facility] [address] [address] [address] Gasper Garber Urea nitrogen/Creatinine [Mass ratio] 20.0 mg/mg Normal [facility] Comment on above: Performed By: #### E YANICK, UMICRO #### [facility] [address] [address] [address] Gasper Garber Albumin [Mass/Vol] 3.7 g/dL Normal 3.4-5.0 [facility] Comment on above: Performed By: #### L ACT #### [facility] [address] [address] [address] Gasper Garber Albumin/Globulin [Mass ratio] 1.1 {ratio} Normal [facility] Comment on above: Performed By: #### L ACT #### [facility] [address] [address] [address] Gasper Garber ALP [Catalytic activity/Vol] 84 U/L Normal 46-116 [facility] Comment on above: Performed By: #### L ACT #### [facility] [address] [address] [address] Gasper Garber ALT [Catalytic activity/Vol] 26 U/L Normal 14-59 [facility] Comment on above: Performed By: #### L ACT #### [facility] [address] [place] [address] Dr. Gasper Garber Anion gap [Moles/Vol] 8.5 mmol/L Normal [facility] Comment on above: Performed By: #### L ACT #### [facility] [address] [place] [address] Dr. Gasper Garber AST [Catalytic activity/Vol] 16 U/L Normal 15-37 [facility] Comment on above: Performed By: #### L ACT #### [facility] [address] [place] [address] Dr. Gasper Garber Bilirubin [Mass/Vol] 0.4 mg/dL Normal 0.2-1.0 [facility] Comment on above: Performed By: #### L ACT #### [facility] [address] [place] [address] Dr. Gasper Garber Calcium [Mass/Vol] 9.8 mg/dL Normal 8.5-10.1 [facility] Comment on above: Performed By: #### L ACT #### [facility] [address] [address] [address] Gasper Garber Chloride [Moles/Vol] 99 mmol/L Normal 98-107 [facility] Comment on above: Performed By: #### L ACT #### [facility] [address] [place] [address] Dr. Gasper Garber CO2 [Moles/Vol] 32.3 mmol/L Critically high 21.0-32.0 [facility] Comment on above: Performed By: #### L ACT #### [facility] [address] [address] [address] Gasper Garber Creatinine [Mass/Vol] 1.84 mg/dL Critically high 0.55-1.02 [facility] Comment on above: Performed By: #### L ACT #### [facility] [address] [address] [address] Gasper Garber EGFR-AF EMIRATI 33 mL/min/1.73m2 Critically low >=60 [facility] Comment on above: Performed By: #### L ACT #### [facility] [address] [address] [address] Gasper Garber EGFR-NON AF EMIRATI 27 mL/min/1.73m2 Critically low >=60 [facility] Comment on above: Performed By: #### L ACT #### [facility] [address] [address] [address] Gasper Garber Globulin (S) [Mass/Vol] 3.4 g/dL Normal [facility] Comment on above: Performed By: #### L ACT #### [facility] [address] [address] [address] Gasper Garber Glucose [Mass/Vol] 180 mg/dL Critically high 74-[address] [facility] Comment on above: Performed By: #### L ACT #### [facility] [address] [address] [address] Gasper Garber Potassium [Moles/Vol] 3.8 mmol/L Normal 3.5-5.1 [facility] Comment on above: Performed By: #### L ACT #### [facility] [address] [address] [address] Gasper Garber Protein [Mass/Vol] 7.1 g/dL Normal 6.4-8.2 [facility] Comment on above: Performed By: #### L ACT #### [facility] [address] [address] [address] Gasper Garber Sodium [Moles/Vol] 136 mmol/L Normal 136-145 [facility] Comment on above: Performed By: #### L ACT #### [facility] [address] [place] [address] Dr. Gasper Garber Urea nitrogen [Mass/Vol] 35.0 mg/dL Critically high 7.0-18.0 [facility] Comment on above: Performed By: #### L ACT #### [facility] [address] [place] [address] Dr. Gasper Garber Urea nitrogen/Creatinine [Mass ratio] 19.0 mg/mg Normal [facility] Comment on above: Performed By: #### L ACT #### [facility] [address] [place] [address] Dr. Gasper Garber PROTIMEon 05-14-2022 INR Coag (PPP) [Relative time] 0.95 {INR} Normal [facility] Comment on above: Performed By: #### U RCX #### [facility] [address] [place] [address] Dr. Gasper Garber INR GUIDELINES SEE BELOW Normal [facility] Comment on above: Result Comment: JESUS RED INR: 2.0 - 3.0 CONDITIONS NOT LISTED BELOW 2.5 - 3.5 FOR PROSTHETIC HEART VALVE REPLACEMENT 2.5 - 3.5 RECURRENT THROMBOSIS Performed By: #### U RCX #### [facility] [address] [place] [address] Dr. Gasper Garber PT Coag (PPP) [Time] 10.1 s Normal 9.0-11.6 [facility] Comment on above: Performed By: #### U RCX #### [facility] [address] [place] [address] Dr. Gasper Garber PTTon 05-14-2022 aPTT Coag (Bld) [Time] 24.7 s Normal 22.3-36.2 [facility] Comment on above: Performed By: #### E BERNIE HERNDON #### [facility] [address] [place] [address] Dr. Gasper Garber URINE MICROSCOPIC ONLYon BACTERIA LARGE Abnormal NONE SEEN [facility] Comment on above: Performed By: #### U ARMICR #### [facility] [address] [place] [address] Dr. Gasper Garber Bacteria identified Cx Nom (U) INDICATED Normal [facility] Comment on above: Performed By: #### U ARMICR #### [facility] [address] [place] [address] Dr. Gasper Garber CAST NONE SEEN Normal NONE SEEN [facility] Comment on above: Performed By: #### U ARMICR #### [facility] [address] [place] [address] Dr. Gasper Garber Crystals LM Nom (Urine sed) NONE SEEN Normal NONE SEEN [facility] Comment on above: Performed By: #### U ARMICR #### [facility] [address] [place] [address] Dr. Gasper Garber Epithelial cells LM Ql (Urine sed) MANY Abnormal NONE SEEN /RARE [facility] Comment on above: Performed By: #### U ARMICR #### [facility] [address] [place] [address] Dr. Gasper Garber MUCOUS NONE SEEN Normal NONE SEEN [facility] Comment on above: Performed By: #### U ARMICR #### [facility] [address] [place] [address] Dr. Gasper Garber RBC 0-2 Normal 0-2 [facility] Comment on above: Performed By: #### U ARMICR #### [facility] [address] [place] [address] Dr. Gasper Garber WBC 0-2 Abnormal NONE SEEN [facility] Comment on above: Performed By: #### U ARMICR #### [facility] [address] [place] [address] Dr. Gasper Garber XR CHEST 1 Von [...] by: SAI ORTA Date: 2022-05-14 00:19 Normal [facility] XR LSPINE 2_3 VIEWSon 2022 XR LSPINE [...] by: CHRYSTAL LAUREANO Date: 2022-05-05 15:30 Normal [facility] GLYCOHEMOGLOBIN A1Con 2021 ADA RECOMMENDATION SEE BELOW Normal [facility] Comment on above: Result Comment: ADA RECOMMENDED LIMIT 4.0 - 6.0 ADA THERAPEUTIC TARGET < 7.0 ACTION SUGGESTED > 7.0 Performed By: #### BERNIE MALDONADO #### [facility] [address] [address] [address] Gasper Garber Glucose [Mass/Vol] 169 mg/dL Normal [facility] Comment on above: Performed By: #### BERNIE MALDONADO #### [facility] [address] [address] [address] Gasper Garber HbA1c (Bld) [Mass fraction] 7.5 % Critically high 4.5-6.2 [facility] Comment on above: Performed By: #### BERNIE MALDONADO #### [facility] [address] [address] [address] Gasper Garber NM GASTRIC EMPTYon 2 [...] NASRIN CHIU Date: 2021-09-09 13:23 Normal [facility] ACETONE SERUMon 08-31-2021 ACETONE Negative Normal NEGATIVE [facility] Comment on above: Performed By: #### A CETON #### [facility] [address] [address] [address] Gasper Garber CBC AUTO DIFFon 08-31-2021 BASO # 0.0 103/ul Normal 0.0-0.1 [facility] Comment on above: Performed By: #### U ARMICR #### [facility] [address] [address] [address] Gasper Garber Basophils/100 WBC (Bld) 0.5 % Normal 0.2-2.0 [facility] Comment on above: Performed By: #### U ARMICR #### [facility] [address] [address] [address] Gasper Garber EO # 0.2 103/ul Normal 0.0-0.7 [facility] Comment on above: Performed By: #### U ARMICR #### [facility] [address] [address] [address] Gasper Garber Eosinophils/100 WBC (Bld) 1.9 % Normal 0.9-7.0 [facility] Comment on above: Performed By: #### U ARMICR #### [facility] [address] [address] [address] Gasper Garber Erythrocyte distribution width (RBC) [Ratio] 12.8 % Normal 11.0-15.0 [facility] Comment on above: Performed By: #### U ARMICR #### [facility] [address] [address] [address] Gasper Garber Hematocrit (Bld) [Volume fraction] 36.2 % Normal 36.0-48.0 [facility] Comment on above: Performed By: #### U ARMICR #### [facility] [address] [address] [address] Gasper Garber Hemoglobin (Bld) [Mass/Vol] 11.4 g/dL Critically low 12.0-16.0 [facility] Comment on above: Performed By: #### U ARMICR #### [facility] [address] [place] [address] Dr. Gasper Garber IG # 0.03 10e3/ul Normal 0.00-0.03 [facility] Comment on above: Performed By: #### U ARMICR #### [facility] [address] [place] [address] Dr. Gasper Garber IG % 0.4 % Normal 0.0-0.5 [facility] Comment on above: Performed By: #### U ARMICR #### [facility] [address] [place] [address] Dr. Gasper Garber LYMPH # 1.3 103/ul Normal 1.2-3.8 [facility] Comment on above: Performed By: #### U ARMICR #### [facility] [address] [place] [address] Dr. Gasper Garber Lymphocytes/100 WBC (Bld) 15.2 % Critically low 20.5-60.0 [facility] Comment on above: Performed By: #### U ARMICR #### [facility] [address] [place] [address] Dr. Gasper Garber MANUAL DIFF REQ NO Normal [facility] Comment on above: Performed By: #### U ARMICR #### [facility] [address] [place] [address] Dr. Gasper Garber MCH (RBC) [Entitic mass] 30.6 pg Normal 26.7-34.0 [facility] Comment on above: Performed By: #### U ARMICR #### [facility] [address] [place] [address] Dr. Gasper Garber MCHC (RBC) [Mass/Vol] 31.5 g/dL Normal 29.9-35.2 [facility] Comment on above: Performed By: #### U ARMICR #### [facility] [address] [place] [address] Dr. Gasper Garber MCV (RBC) [Entitic vol] 97.1 fL Normal 81.0-99.0 [facility] Comment on above: Performed By: #### U ARMICR #### [facility] [address] [place] [address] Dr. Gasper Garber MONO # 0.8 103/ul Normal 0.3-0.8 [facility] Comment on above: Performed By: #### U ARMICR #### [facility] [address] [place] [address] Dr. Gasper Garber Monocytes/100 WBC (Bld) 9.8 % Normal 1.7-12.0 [facility] Comment on above: Performed By: #### U ARMICR #### [facility] [address] [place] [address] Dr. Gasper Garber NEUT # 6.1 103/ul Normal 1.4-6.5 [facility] Comment on above: Performed By: #### U ARMICR #### [facility] [address] [place] [address] Dr. Gasper Garber Neutrophils/100 WBC (Bld) 72.2 % Normal 43.0-75.0 [facility] Comment on above: Performed By: #### U ARMICR #### [facility] [address] [place] [address] Dr. Gasper Garber Platelet mean volume (Bld) [Entitic vol] 10.2 fL Normal 9.5-13.5 [facility] Comment on above: Performed By: #### U ARMICR #### [facility] [address] [place] [address] Dr. Gasper Garber PLT 249 103/ul Normal 150-450 [facility] Comment on above: Performed By: #### U ARMICR #### [facility] [address] [place] [address] Dr. Gasper Garber RBC 3.73 106/ul Critically low 4.20-5.40 The [facility] Comment on above: Performed By: #### U ARMICR #### [facility] [address] [place] [address] Dr. Gasper Garber WBC 8.4 103/ul Normal 4.0-11.0 [facility] Comment on above: Performed By: #### U ARMICR #### [facility] [address] [place] [address] Dr. Gasper Garber CULTURE URINEon 08-31-2021 CULTURE URINE Culture Observations : HEAVY GROWTH OF MIXED GENITAL KADEEM. NO POTENTIAL PATHOGENS SEEN. Normal [facility] Comment on above: Performed By: #### A CETON #### [facility] [address] [place] [address] Dr. Gasper Garber ER URINE PROFILEon Bilirubin Ql (U) SMALL Abnormal NEGATIVE [facility] Comment on above: Performed By: #### E RUR UMICRO #### [facility] [address] [place] [address] Dr. Gasper Garber Clarity (U) CLOUDY Abnormal CLEAR [facility] Comment on above: Performed By: #### E RUR UMICRO #### [facility] [address] [place] [address] Dr. Gasper Garber Color (U) YELLOW Normal YELLOW [facility] Comment on above: Performed By: #### E RUCrystal UMICRO #### [facility] [address] [place] [address] Dr. Gasper Garber ERUNIKI A micrscopic examina tion will be performed if indicated. Normal [facility] Comment on above: Performed By: #### E RUR UMICRO #### [facility] [address] [place] [address] Dr. Gasper Garber Glucose Ql (U) Negative Normal NEGATIVE [facility] Comment on above: Performed By: #### E RUR UMICRO #### [facility] [address] [place] [address] Dr. Gasper Garber Hemoglobin Ql (U) Negative Normal NEGATIVE [facility] Comment on above: Performed By: #### E RUR UMICRO #### [facility] [address] [place] [address] Dr. Gasper Garber Ketones Ql (U) Negative Normal NEGATIVE [facility] Comment on above: Performed By: #### Bernice HERNDON UMICRO #### [facility] [address] [place] [address] Dr. Gasper Garber LEUKOCYTES TRACE Abnormal NEGATIVE [facility] Comment on above: Performed By: #### Bernice HERNDON UMICRO #### [facility] [address] [place] [address] Dr. Gasper Garber Nitrite Ql (U) Negative Normal NEGATIVE [facility] Comment on above: Performed By: #### Bernice HERNDON UMICRO #### [facility] [address] [place] [address] Dr. Gasper Garber pH (U) 5.5 [pH] Normal 5-9 [facility] Comment on above: Performed By: #### Bernice HERNDON UMICRO #### [facility] [address] [place] [address] Dr. Gasper Garber Protein (U) [Mass/Vol] 100 mg/dL Abnormal NEGATIVE/ TRACE [facility] Comment on above: Performed By: #### Bernice HERNDON UMICRO #### [facility] [address] [place] [address] Dr. Gasper Garber SPEC GRAVITY >=1.030 Abnormal 1.005-<=1.0 25 [facility] Comment on above: Performed By: #### Bernice HERNDON UMICRO #### [facility] [address] [place] [address] Dr. Gasper Garber UR MICRO IND INDICATED Normal [facility] Comment on above: Performed By: #### Bernice HERNDON UMICRO #### [facility] [address] [place] [address] Dr. Gasper Garber Urobilinogen Qn (U) 1.0 {Kaushik'U}/dL Normal 0.2 - 1. 0 [facility] Comment on above: Performed By: #### Bernice HERNDON UMICRO #### [facility] [address] [place] [address] Dr. Gasper Garber GI PANEL (PCR)on 08-31-2021 Adenovirus F 40/41 Not detected Normal NOT DETECTED [facility] Comment on above: Performed By: #### E YANICK UMICRO #### [facility] [address] [place] [address] Dr. Gasper Garber Astrovirus Not detected Normal NOT DETECTED [facility] Comment on above: Performed By: #### E YANICK, UMICRO #### [facility] [address] [place] [address] Dr. Gasper Garber C. Diff toxin A/B Not detected Normal NOT DETECTED [facility] Comment on above: Performed By: #### E YANICK, UMICRO #### [facility] [address] [place] [address] Dr. Gasper Garber Campylobacter Not detected Normal NOT DETECTED [facility] Comment on above: Performed By: #### E YANICK UMICRO #### [facility] [address] [place] [address] Dr. Gasper Garber Cryptosporidium Not detected Normal NOT DETECTED [facility] Comment on above: Performed By: #### Bernice HERNDON ICRO #### [facility] [address] [place] [address] Dr. Gasper Garber Cyclos. Cayetanensis Not detected Normal NOT DETECTED [facility] Comment on above: Performed By: #### Bernice HERNDON ICRO #### [facility] [address] [place] [address] Dr. Gasper Garber E. Coli O157 Not Applicable Normal Not Applicable [facility] Comment on above: Performed By: #### Bernice HERNDON ICRO #### [facility] [address] [place] [address] Dr. Gasper Garber E. histolytica Not detected Normal NOT DETECTED [facility] Comment on above: Performed By: #### Bernice HERNDON UMICRO #### [facility] [address] [place] [address] Dr. Gasper Garber EAEC Not detected Normal NOT DETECTED [facility] Comment on above: Performed By: #### Bernice HERNDON UMICRO #### [facility] [address] [place] [address] Dr. Gasper Garber EIEC Not detected Normal NOT DETECTED [facility] Comment on above: Performed By: #### E YANICK, UMICRO #### [facility] [address] [place] [address] Dr. Gasper Garber EPEC Not detected Normal NOT DETECTED [facility] Comment on above: Performed By: #### E YANICK, UMICRO #### [facility] [address] [place] [address] Dr. Gasper Garber ETEC Not detected Normal NOT DETECTED [facility] Comment on above: Performed By: #### E YANICK, UMICRO #### [facility] [address] [place] [address] Dr. Gasper Carmona Not detected Normal NOT DETECTED [facility] Comment on above: Performed By: #### E YANICK, UMICRO #### [facility] [address] [place] [address] Dr. Gasper LOPEZ CONTROLS PASSED Normal [facility] Comment on above: Performed By: #### E YANICK UMICRO #### [facility] [address] [place] [address] Dr. Gasper RUVALCABA [facility] GI PANEL BACTERIA Normal T [facility] Comment on above: Performed By: #### Bernice HERNDON UMICRO #### [facility] [address] [place] [address] Dr. Gasper NUNEZ ECOLI GI PANEL DIARRHEAGEN IC E.COLI / SHIGELLA Normal [facility] Comment on above: Performed By: #### Bernice HERNDON UMICRO #### [facility] [address] [place] [address] Dr. Gasper NUNEZ INFO SEE BELOW Normal [facility] Comment on above: Result Comment: EAEC - Enteroaggregative E. Coli EPEC- Enteropathogenic E. Coli ETEC- Enterotoxigenic E. Coli lt/st STEC- Shigella-like toxin-producing E. Coli stx1/stx2 EIEC- Shigella/Enteroinvasive E. Coli Performed By: #### Bernice HERNDON UMICRO #### [facility] [address] [place] [address] Dr. Gasper NUNEZ PARASITES GI PANEL PARASITES Normal [facility] Comment on above: Performed By: #### E RUR, UMICRO #### [facility] [address] [place] [address] Dr. Gasper NUNEZ VIRUS GI PANEL VIRUSES Normal [facility] Comment on above: Performed By: #### E RUR, UMICRO #### [facility] [address] [place] [address] Dr. Gasper Garber Norovirus GI/GII Detected Abnormal NOT DETECTED [facility] Comment on above: Performed By: #### E RUR, UMICRO #### [facility] [address] [place] [address] Dr. Gasper Garber P. Shigelloides Not detected Normal NOT DETECTED [facility] Comment on above: Performed By: #### E RUCrystal, UMICRO #### [facility] [address] [place] [address] Dr. Gasper Garber Rotavirus A Not detected Normal NOT DETECTED [facility] Comment on above: Performed By: #### E YANICK, UMICRO #### [facility] [address] [place] [address] Dr. Gasper Garber Salmonella Not detected Normal NOT DETECTED [facility] Comment on above: Performed By: #### E YANICK, UMICRO #### [facility] [address] [place] [address] Dr. Gasper Garber Sapovirus Not detected Normal NOT DETECTED [facility] Comment on above: Performed By: #### E RUR, UMICRO #### [facility] [address] [place] [address] Dr. Gasper Garber STEC Not detected Normal NOT DETECTED [facility] Comment on above: Performed By: #### E RUR, UMICRO #### [facility] [address] [place] [address] Dr. Gasper Garber Vibrio Not detected Normal NOT DETECTED [facility] Comment on above: Performed By: #### E RUR, UMICRO #### [facility] [address] [place] [address] Dr. Gasper Garber Vibrio Cholera Not detected Normal NOT DETECTED [facility] Comment on above: Performed By: #### TONI MALDONADORO #### [facility] [address] [place] [address] Dr. Gasper Garber Y. Enterocolitica Not detected Normal NOT DETECTED [facility] Comment on above: Performed By: #### TONI MALDONADORO #### [facility] [address] [place] [address] Dr. Gasper Garber LACTATE/LACTIC ACIDon 2021 Lactate [Moles/Vol] 1.0 mmol/L Normal 0.4-1.9 [facility] Comment on above: Performed By: #### P T, PTT #### [facility] [address] [place] [address] Dr. Gasper Garber LIPASEon 08-31-2021 Lipase [Catalytic activity/Vol] 166.0 U/L Normal 73.0-393.0 [facility] Comment on above: Performed By: #### U ARMICR #### [facility] [address] [place] [address] Dr. Gasper Garber PROF 14(COMP METB)on 022 Albumin [Mass/Vol] 3.7 g/dL Normal 3.4-5.0 [facility] Comment on above: Performed By: #### U ARMICR #### [facility] [address] [place] [address] Dr. Gasper Garber Albumin/Globulin [Mass ratio] 1.0 {ratio} Normal [facility] Comment on above: Performed By: #### U ARMICR #### [facility] [address] [place] [address] Dr. Gasper Garber ALP [Catalytic activity/Vol] 75 U/L Normal 46-116 [facility] Comment on above: Performed By: #### U ARMICR #### [facility] [address] [place] [address] Dr. Gasper Garber ALT [Catalytic activity/Vol] 44 U/L Normal 14-59 [facility] Comment on above: Performed By: #### U ARMICR #### [facility] [address] [address] [address] Gasper Garber Anion gap [Moles/Vol] 15.3 mmol/L Normal [facility] Comment on above: Performed By: #### U ARMICR #### [facility] [address] [address] [address] Gasper Garber AST [Catalytic activity/Vol] 27 U/L Normal 15-37 [facility] Comment on above: Performed By: #### U ARMICR #### [facility] [address] [address] [address] Gasper Garber Bilirubin [Mass/Vol] 0.5 mg/dL Normal 0.2-1.0 [facility] Comment on above: Performed By: #### U ARMICR #### [facility] [address] [address] [address] Gasper Garber Calcium [Mass/Vol] 9.7 mg/dL Normal 8.5-10.1 [facility] Comment on above: Performed By: #### U ARMICR #### [facility] [address] [address] [address] Gasper Garber Chloride [Moles/Vol] 105 mmol/L Normal 98-107 [facility] Comment on above: Performed By: #### U ARMICR #### [facility] [address] [address] [address] Gasper Garber CO2 [Moles/Vol] 24.0 mmol/L Normal 21.0-32.0 [facility] Comment on above: Performed By: #### U ARMICR #### [facility] [address] [address] [address] Gasper Garber Creatinine [Mass/Vol] 2.20 mg/dL Critically high 0.55-1.02 [facility] Comment on above: Performed By: #### U ARMICR #### [facility] [address] [address] [address] Gasper Garber EGFR-AF EMIRATI 26 mL/min/1.73m2 Critically low >=60 [facility] Comment on above: Performed By: #### U ARMICR #### [facility] [address] [address] [address] Gasper Garber EGFR-NON AF EMIRATI 22 mL/min/1.73m2 Critically low >=60 [facility] Comment on above: Performed By: #### U ARMICR #### [facility] [address] [address] [address] Gasper Garber Globulin (S) [Mass/Vol] 3.7 g/dL Normal [facility] Comment on above: Performed By: #### U ARMICR #### [facility] [address] [address] [address] Gasper Garber Glucose [Mass/Vol] 280 mg/dL Critically high 74-[address] [facility] Comment on above: Performed By: #### U ARMICR #### [facility] [address] [address] [address] Gasper Garber Potassium [Moles/Vol] 4.3 mmol/L Normal 3.5-5.1 [facility] Comment on above: Performed By: #### U ARMICR #### [facility] [address] [address] [address] Gasper Garber Protein [Mass/Vol] 7.4 g/dL Normal 6.4-8.2 [facility] Comment on above: Performed By: #### U ARMICR #### [facility] [address] [address] [address] Gasper Garber Sodium [Moles/Vol] 140 mmol/L Normal 136-145 [facility] Comment on above: Performed By: #### U ARMICR #### [facility] [address] [address] [address] Gasper Garber Urea nitrogen [Mass/Vol] 29.0 mg/dL Critically high 7.0-18.0 [facility] Comment on above: Performed By: #### U ARMICR #### [facility] [address] [address] [address] Gasper Garber Urea nitrogen/Creatinine [Mass ratio] 13.2 mg/mg Normal [facility] Comment on above: Performed By: #### U ARMICR #### [facility] [address] [place] [address] Dr. Gasper Garber TSHon 08-31-2021 TSH 0.923 uIU/mL Normal 0.358-3.740 [facility] Comment on above: Performed By: #### U ARMICR #### [facility] [address] [place] [address] Dr. Gasper Garber URINE MICROSCOPIC ONLYon BACTERIA SMALL Abnormal NONE SEEN [facility] [facility] Comment on above: Performed By: #### E RUR, UMICRO #### [facility] [address] [place] [address] Dr. Gasper aGrber Bacteria identified Cx Nom (U) INDICATED Normal [facility] Comment on above: Performed By: #### E RUR, UMICRO #### [facility] [address] [place] [address] Dr. Gasper Garber CAST NONE SEEN Normal NONE SEEN [facility] Comment on above: Performed By: #### E RUR, UMICRO #### [facility] [address] [place] [address] Dr. Gasper Garber Crystals LM Nom (Urine sed) NONE SEEN Normal NONE SEEN [facility] Comment on above: Performed By: #### E RUR, UMICRO #### [facility] [address] [place] [address] Dr. Gasper Garber Epithelial cells LM Ql (Urine sed) MANY Abnormal NONE SEEN /RARE [facility] Comment on above: Performed By: #### E RUR, UMICRO #### [facility] [address] [place] [address] Dr. Gasper Garber MUCOUS NONE SEEN Normal NONE SEEN [facility] Comment on above: Performed By: #### E RUR, UMICRO #### [facility] [address] [place] [address] Dr. Gasper Garber RBC 0-2 Normal 0-2 [facility] Comment on above: Performed By: #### E RUR, UMICRO #### [facility] [address] [address] [address] Gasper Garber WBC 2-5 Abnormal NONE SEEN [facility] Comment on above: Performed By: #### BERNIE MALDONADO #### [facility] [address] [place] [address] Dr. Gasper Garber XR ABD FLAT UP_PA [...] CHRYSTAL LAUREANO Date: 2021-08-31 15:55 Normal [facility] CBC AUTO DIFFon 08-27-2021 BASO # 0.1 103/ul Normal 0.0-0.1 [facility] Comment on above: Performed By: #### BERNIE MALDONADO #### [facility] [address] [place] [address] Dr. Gasper Garber Basophils/100 WBC (Bld) 0.6 % Normal 0.2-2.0 [facility] Comment on above: Performed By: #### BERNIE MALDONADO #### [facility] [address] [address] [address] Gasper Garber EO # 0.0 103/ul Normal 0.0-0.7 [facility] Comment on above: Performed By: #### BERNIE MALDONADO #### [facility] [address] [place] [address] Dr. Gasper Garber Eosinophils/100 WBC (Bld) 0.5 % Critically low 0.9-7.0 [facility] Comment on above: Performed By: #### BERNIE MALDONADO #### [facility] [address] [place] [address] Dr. Gasper Garber Erythrocyte distribution width (RBC) [Ratio] 13.0 % Normal 11.0-15.0 [facility] Comment on above: Performed By: #### TONI MALDONADORO #### [facility] [address] [place] [address] Dr. Gasper Garber Hematocrit (Bld) [Volume fraction] 35.6 % Critically low 36.0-48.0 [facility] Comment on above: Performed By: #### Bernice HERNDON, UMICRO #### [facility] [address] [place] [address] Dr. Gasper Garber Hemoglobin (Bld) [Mass/Vol] 11.5 g/dL Critically low 12.0-16.0 [facility] Comment on above: Performed By: #### Bernice HERNDON UMICRO #### [facility] [address] [place] [address] Dr. Gasper Garber IG # 0.03 10e3/ul Normal 0.00-0.03 [facility] Comment on above: Performed By: #### Bernice HERNDON UMICRO #### [facility] [address] [place] [address] Dr. Gasper Garber IG % 0.3 % Normal 0.0-0.5 [facility] Comment on above: Performed By: #### Bernice HERNDON, UMICRO #### [facility] [address] [place] [address] Dr. Gasper Garber LYMPH # 1.0 103/ul Critically low 1.2-3.8 [facility] Comment on above: Performed By: #### Bernice HERNDON, UMICRO #### [facility] [address] [place] [address] Dr. Gasper Garber Lymphocytes/100 WBC (Bld) 10.8 % Critically low 20.5-60.0 [facility] Comment on above: Performed By: #### Bernice HERNDON, UMICRO #### [facility] [address] [place] [address] Dr. Gasper Garber MANUAL DIFF REQ NO Normal [facility] Comment on above: Performed By: #### TONI MALDONADORO #### [facility] [address] [place] [address] Dr. Gasper Garber MCH (RBC) [Entitic mass] 31.2 pg Normal 26.7-34.0 [facility] Comment on above: Performed By: #### TONI MALDONADORO #### [facility] [address] [place] [address] Dr. Gasper Garber MCHC (RBC) [Mass/Vol] 32.3 g/dL Normal 29.9-35.2 [facility] Comment on above: Performed By: #### JOANNE MALDONADOICRO #### [facility] [address] [place] [address] Dr. Gasper Garber MCV (RBC) [Entitic vol] 96.5 fL Normal 81.0-99.0 [facility] Comment on above: Performed By: #### TONI MALDONADORO #### [facility] [address] [place] [address] Dr. Gasper Garber MONO # 0.6 103/ul Normal 0.3-0.8 [facility] Comment on above: Performed By: #### TONI MALDONADORO #### [facility] [address] [place] [address] Dr. Gasper Garber Monocytes/100 WBC (Bld) 7.2 % Normal 1.7-12.0 [facility] Comment on above: Performed By: #### JOANNE MALDONADOICRO #### [facility] [address] [place] [address] Dr. Gasper Garber NEUT # 7.1 103/ul Critically high 1.4-6.5 [facility] Comment on above: Performed By: #### TONI MALDONADORO #### [facility] [address] [place] [address] Dr. Gasper Garber Neutrophils/100 WBC (Bld) 80.6 % Critically high 43.0-75.0 [facility] Comment on above: Performed By: #### TONI MALDONADORO #### [facility] [address] [address] [address] Gasper Garber Platelet mean volume (Bld) [Entitic vol] 10.2 fL Normal 9.5-13.5 [facility] Comment on above: Performed By: #### Bernice HERNDON, UMICRO #### [facility] [address] [place], [place] [address] Dr. Gasper Garber PLT 276 103/ul Normal 150-450 [facility] Comment on above: Performed By: #### Bernice HERNDON, UMICRO #### [facility] [address] [place], [place] [address] Dr. Gasper Garber RBC 3.69 106/ul Critically low 4.20-5.[address] [facility] Comment on above: Performed By: #### Bernice HERNDON, UMICRO #### [facility] [address] [place], [place] [address] Dr. Gasper Garber WBC 8.8 103/ul Normal 4.0-11.0 [facility] Comment on above: Performed By: #### Bernice HERNDON, UMICRO #### [facility] [address] [place], [place] [address] ABD/PELVIS WO CONon [...] BELIA GAFFNEY Date: 2021-08-27 16:04 Normal [facility] ER URINE PROFILEon 2 Bilirubin Ql (U) Negative Normal NEGATIVE [facility] Comment on above: Performed By: #### Bernice HERNDON UMICRO #### [facility] [address] [place] [address] Dr. Gasper Garber Clarity (U) CLEAR Normal CLEAR [facility] Comment on above: Performed By: #### Bernice HERNDON UMICRO #### [facility] [address] [address] [address] Gasper Garber Color (U) LT. YELLOW Normal YELLOW [facility] Comment on above: Performed By: #### Bernice HERNDON UMICRO #### [facility] [address] [place] [address] Dr. Gasper Garber ERUNIKI A micrscopic examina tion will be performed if indicated. Normal [facility] Comment on above: Performed By: #### Bernice COPELANDR UMICRO #### [facility] [address] [address] [address] Gasper Garber Glucose Ql (U) Negative Normal NEGATIVE [facility] Comment on above: Performed By: #### E RUR UMICRO #### [facility] [address] [place] [address] Dr. Gasper Garber Hemoglobin Ql (U) Negative Normal NEGATIVE [facility] Comment on above: Performed By: #### BERNIE MALDONADO #### [facility] [address] [place] [address] Dr. Gasper Garber Ketones Ql (U) Negative Normal NEGATIVE [facility] Comment on above: Performed By: #### TONI MALDONADORO #### [facility] [address] [place] [address] Dr. Gasper Garber LEUKOCYTES Negative Normal NEGATIVE [facility] Comment on above: Performed By: #### TONI MALDONADORO #### [facility] [address] [place] [address] Dr. Gasper Garber Nitrite Ql (U) Negative Normal NEGATIVE [facility] Comment on above: Performed By: #### TONI MALDONADORO #### [facility] [address] [place] [address] Dr. Gasper Garber pH (U) 6.5 [pH] Normal 5-9 [facility] Comment on above: Performed By: #### TONI MALDONADORO #### [facility] [address] [place] [address] Dr. Gasper Garber Protein (U) [Mass/Vol] 100 mg/dL Abnormal NEGATIVE/ TRACE [facility] Comment on above: Performed By: #### TONI MALDONADORO #### [facility] [address] [place] [address] Dr. Gasper Garber SPEC GRAVITY 1.015 Normal 1.005-<=1.0 25 [facility] Comment on above: Performed By: #### TONI MALDONADORO #### [facility] [address] [place] [address] Dr. Gasper Garber UR MICRO IND INDICATED Normal [facility] Comment on above: Performed By: #### TONI MALDONADORO #### [facility] [address] [place] [address] Dr. Gasper Garber Urobilinogen Qn (U) 0.2 {Kaushik'U}/dL Normal 0.2 - 1. 0 [facility] Comment on above: Performed By: #### TONI MALDONADORO #### [facility] [address] [address] [address] Gasper Garber PROF CHEM 8 (BAS METB)on Anion gap [Moles/Vol] 14.7 mmol/L Normal [facility] Comment on above: Performed By: #### P T, PTT #### [facility] [address] [place] [address] Dr. Gasper Garber Calcium [Mass/Vol] 10.1 mg/dL Normal 8.5-10.1 [facility] Comment on above: Performed By: #### P T, PTT #### [facility] [address] [place] [address] Dr. Gasper Garber Chloride [Moles/Vol] 105 mmol/L Normal 98-107 [facility] Comment on above: Performed By: #### P T, PTT #### [facility] [address] [place] [address] Dr. Gasper Garber CO2 [Moles/Vol] 24.0 mmol/L Normal 21.0-32.0 [facility] Comment on above: Performed By: #### P T, PTT #### [facility] [address] [place] [address] Dr. Gasper Garber Creatinine [Mass/Vol] 1.56 mg/dL Critically high 0.55-1.02 [facility] Comment on above: Performed By: #### P T, PTT #### [facility] [address] [place] [address] Dr. Gasper Garber EGFR-AF EMIRATI 39 mL/min/1.73m2 Critically low >=60 [facility] Comment on above: Performed By: #### P T, PTT #### [facility] [address] [place] [address] Dr. Gasper Garber EGFR-NON AF EMIRATI 32 mL/min/1.73m2 Critically low >=60 [facility] Comment on above: Performed By: #### P T, PTT #### [facility] [address] [place] [address] Dr. Gasper Garber Glucose [Mass/Vol] 209 mg/dL Critically high 74-106 [facility] Comment on above: Performed By: #### P T, PTT #### [facility] [address] [address] [address] Gasper Garber Potassium [Moles/Vol] 4.7 mmol/L Normal 3.5-5.1 [facility] Comment on above: Performed By: #### P T, PTT #### [facility] [address] [place] [address] Dr. Gasper Garber Sodium [Moles/Vol] 139 mmol/L Normal 136-145 [facility] Comment on above: Performed By: #### P T, PTT #### [facility] [address] [place] [address] Dr. Gasper Garber Urea nitrogen [Mass/Vol] 16.0 mg/dL Normal 7.0-18.0 [facility] Comment on above: Performed By: #### P T, PTT #### [facility] [address] [place] [address] Dr. Gasper Garber Urea nitrogen/Creatinine [Mass ratio] 10.3 mg/mg Normal [facility] Comment on above: Performed By: #### P T, PTT #### [facility] [address] [place] [address] Dr. Gasper Garber URINE MICROSCOPIC ONLYon BACTERIA TRACE Abnormal NONE SEEN [facility] Comment on above: Performed By: #### Bernice HERNDON UMICRO #### [facility] [address] [place] [address] Dr. Gasper Garber Bacteria identified Cx Nom (U) NOT INDICATED Normal [facility] Comment on above: Performed By: #### E RUR UMICRO #### [facility] [address] [place] [address] Dr. Gasper Garber CAST NONE SEEN Normal NONE SEEN [facility] Comment on above: Performed By: #### Bernice HERNDON UMICRO #### [facility] [address] [place] [address] Dr. Gasper Garber Crystals LM Nom (Urine sed) NONE SEEN Normal NONE SEEN [facility] Comment on above: Performed By: #### Bernice HERNDON UMICRO #### [facility] [address] [address] [address] Gasper Garber Epithelial cells LM Ql (Urine sed) FEW Abnormal NONE SEEN /RARE [facility] Comment on above: Performed By: #### E YANICK UMICRO #### [facility] [address] [address] [address] Gasper Garber MUCOUS NONE SEEN Normal NONE SEEN [facility] Comment on above: Performed By: #### Bernice HERNDON, UMICRO #### [facility] [address] [address] [address] Gasper Garber RBC NONE SEEN Abnormal 0-2 [facility] Comment on above: Performed By: #### E YANICK UMICRO #### [facility] [address] [address] [address] Gasper Garber WBC 0-2 Abnormal NONE SEEN [facility] Comment on above: Performed By: #### Bernice HERNDON UMICRO #### [facility] [address] [place] [address] Dr. Gasper Garber CULTURE URINEon 08-19-2021 CULTURE URINE Culture Observations : Called to [facility] rn 08-19-21 @7526 Culture Observations: METHICILLIN RESISTANT STAPH AUREUS ISOLATED. [...] C Oxacillin >=4 R C Normal [facility] Comment on above: Performed By: #### A CETON #### [facility] [address] [place] [address] Dr. Gasper Garber CBC AUTO DIFFon 06-28-2022 BASO # 0.0 103/ul Normal 0.0-0.1 [facility] Comment on above: Performed By: #### BERNIE MALDONADO #### [facility] [address] [place] [address] Dr. Gasper Garber Basophils/100 WBC (Bld) 0.4 % Normal 0.2-2.0 [facility] Comment on above: Performed By: #### TONI MALDONADORO #### [facility] [address] [place] [address] Dr. Gasper Garber EO # 0.1 103/ul Normal 0.0-0.7 [facility] Comment on above: Performed By: #### TONI MALDONADORO #### [facility] [address] [place] [address] Dr. Gasper Garber Eosinophils/100 WBC (Bld) 1.0 % Normal 0.9-7.0 [facility] Comment on above: Performed By: #### TONI MALDONADORO #### [facility] [address] [place] [address] Dr. Gasper Garber Erythrocyte distribution width (RBC) [Ratio] 12.5 % Normal 11.0-15.0 [facility] Comment on above: Performed By: #### TONI MALDONADORO #### [facility] [address] [place] [address] Dr. Gasper Garber Hematocrit (Bld) [Volume fraction] 35.3 % Critically low 36.0-48.0 [facility] Comment on above: Performed By: #### TONI AMLDONADORO #### [facility] [address] [place] [address] Dr. Gasper Garber Hemoglobin (Bld) [Mass/Vol] 11.7 g/dL Critically low 12.0-16.0 [facility] Comment on above: Performed By: #### TONI MALDONADORO #### [facility] [address] [place] [address] Dr. Gasper Garber IG # 0.03 10e3/ul Normal 0.00-0.03 [facility] Comment on above: Performed By: #### Bernice HERNDON UMICRO #### [facility] [address] [place] [address] Dr. Gasper Garber IG % 0.3 % Normal 0.0-0.5 [facility] Comment on above: Performed By: #### E YANICK UMICRO #### [facility] [address] [place] [address] Dr. Gasper Garber LYMPH # 0.9 103/ul Critically low 1.2-3.8 [facility] Comment on above: Performed By: #### E RUCrystal UMICRO #### [facility] [address] [place] [address] Dr. Gasper Garber Lymphocytes/100 WBC (Bld) 9.6 % Critically low 20.5-60.0 [facility] Comment on above: Performed By: #### Bernice HERNDON UMICRO #### [facility] [address] [place] [address] Dr. Gasper Garber MANUAL DIFF REQ NO Normal [facility] Comment on above: Performed By: #### Bernice HERNDON UMICRO #### [facility] [address] [place] [address] Dr. Gasper Garber MCH (RBC) [Entitic mass] 30.8 pg Normal 26.7-34.0 [facility] Comment on above: Performed By: #### Bernice HERNDON UMICRO #### [facility] [address] [place] [address] Dr. Gasper Garber MCHC (RBC) [Mass/Vol] 33.1 g/dL Normal 29.9-35.2 [facility] Comment on above: Performed By: #### E YANICK UMICRO #### [facility] [address] [place] [address] Dr. Gasper Garber MCV (RBC) [Entitic vol] 92.9 fL Normal 81.0-99.0 [facility] Comment on above: Performed By: #### Bernice HERNDON, UMICRO #### [facility] [address] [place] [address] Dr. Gasper Garber MONO # 0.9 103/ul Critically high 0.3-0.8 [facility] Comment on above: Performed By: #### TONI MALDONADORO #### [facility] [address] [place] [address] Dr. Gasper Garber Monocytes/100 WBC (Bld) 9.3 % Normal 1.7-12.0 [facility] Comment on above: Performed By: #### TONI MALDONADORO #### [facility] [address] [place] [address] Dr. Gasper Garber NEUT # 7.7 103/ul Critically high 1.4-6.5 [facility] Comment on above: Performed By: #### TONI MALDONADORO #### [facility] [address] [place] [address] Dr. Gasper Garber Neutrophils/100 WBC (Bld) 79.4 % Critically high 43.0-75.0 [facility] Comment on above: Performed By: #### TONI MALDONADORO #### [facility] [address] [place] [address] Dr. Gasper Garber Platelet mean volume (Bld) [Entitic vol] 10.1 fL Normal 9.5-13.5 [facility] Comment on above: Performed By: #### TONI MALDONADORO #### [facility] [address] [place] [address] Dr. Gasper Garber PLT 302 103/ul Normal 150-450 [facility] Comment on above: Performed By: #### JOANNE MALDONADOICRO #### [facility] [address] [place] [address] Dr. Gasper Garber RBC 3.80 106/ul Critically low 4.20-5.40 [facility] Comment on above: Performed By: #### TONI MALDONADORO #### [facility] [address] [place] [address] Dr. Gasper Garber WBC 9.7 103/ul Normal 4.0-11.0 [facility] Comment on above: Performed By: #### E RUR, UMICRO #### [facility] [address] [address] [address] Gasper Garber ER URINE PROFILEon 2 Bilirubin Ql (U) Negative Normal NEGATIVE [facility] Comment on above: Performed By: #### U ARMICR #### [facility] [address] [address] [address] Gasper Garber Clarity (U) CLEAR Normal CLEAR [facility] Comment on above: Performed By: #### U ARMICR #### [facility] [address] [address] [address] Gasper Garber Color (U) LT. YELLOW Normal YELLOW [facility] Comment on above: Performed By: #### U ARMICR #### [facility] [address] [address] [address] Gasper Garber ERUAHD A micrscopic examina tion will be performed if indicated. Normal [facility] Comment on above: Performed By: #### U ARMICR #### [facility] [address] [place] [address] Dr. Gasper Garber Glucose Ql (U) Negative Normal NEGATIVE [facility] Comment on above: Performed By: #### U ARMICR #### [facility] [address] [address] [address] Gasper Garber Hemoglobin Ql (U) Negative Normal NEGATIVE [facility] Comment on above: Performed By: #### U ARMICR #### [facility] [address] [address] [address] Gasper Garber Ketones Ql (U) Negative Normal NEGATIVE [facility] Comment on above: Performed By: #### U ARMICR #### [facility] [address] [address] [address] Gasper Garber LEUKOCYTES MODERATE Abnormal NEGATIVE [facility] Comment on above: Performed By: #### U ARMICR #### [facility] [address] [place] [address] Dr. Gasper Garber Nitrite Ql (U) Negative Normal NEGATIVE [facility] Comment on above: Performed By: #### U ARMICR #### [facility] [address] [place] [address] Dr. Gasper Garber pH (U) 7.0 [pH] Normal 5-9 [facility] Comment on above: Performed By: #### U ARMICR #### [facility] [address] [place] [address] Dr. Gasper Garber SPEC GRAVITY 1.010 Normal 1.005-<=1.0 25 [facility] Comment on above: Performed By: #### U ARMICR #### [facility] [address] [place] [address] Dr. Gasper Garber UA PROTEIN Negative Normal NEGATIVE/ TRACE [facility] Comment on above: Performed By: #### U ARMICR #### [facility] [address] [place] [address] Dr. Gasper Garber UR MICRO IND INDICATED Normal [facility] Comment on above: Performed By: #### U ARMICR #### [facility] [address] [place] [address] Dr. Gasper Garber Urobilinogen Qn (U) 0.2 {Kaushik'U}/dL Normal 0.2 - 1. 0 [facility] Comment on above: Performed By: #### U ARMICR #### [facility] [address] [place] [address] Dr. Gasper Garber PROF 14(COMP METB)on 022 Albumin [Mass/Vol] 3.9 g/dL Normal 3.4-5.0 [facility] Comment on above: Performed By: #### P T, PTT #### [facility] [address] [place] [address] Dr. Gasper Garber Albumin/Globulin [Mass ratio] 1.2 {ratio} Normal [facility] Comment on above: Performed By: #### P T, PTT #### [facility] [address] [place] [address] Dr. Gasper Garber ALP [Catalytic activity/Vol] 70 U/L Normal 46-116 [facility] Comment on above: Performed By: #### P T, PTT #### [facility] [address] [address] [address] Gasper Garber ALT [Catalytic activity/Vol] 44 U/L Normal 14-59 [facility] Comment on above: Performed By: #### P T, PTT #### [facility] [address] [address] [address] Gasper Garber Anion gap [Moles/Vol] 17.7 mmol/L Normal [facility] Comment on above: Performed By: #### P T, PTT #### [facility] [address] [address] [address] Gasper Garber AST [Catalytic activity/Vol] 31 U/L Normal 15-37 [facility] Comment on above: Performed By: #### P T, PTT #### [facility] [address] [address] [address] Gasper Garber Bilirubin [Mass/Vol] 0.6 mg/dL Normal 0.2-1.0 [facility] Comment on above: Performed By: #### P T, PTT #### [facility] [address] [address] [address] Gasper Garber Calcium [Mass/Vol] 9.9 mg/dL Normal 8.5-10.1 [facility] Comment on above: Performed By: #### P T, PTT #### [facility] [address] [address] [address] Gasper Garber Chloride [Moles/Vol] 99 mmol/L Normal 98-107 [facility] Comment on above: Performed By: #### P T, PTT #### [facility] [address] [address] [address] Gasper Garber CO2 [Moles/Vol] 24.4 mmol/L Normal 21.0-32.0 [facility] Comment on above: Performed By: #### P T, PTT #### [facility] [address] [address] [address] Gasper Garber Creatinine [Mass/Vol] 3.08 mg/dL Critically high 0.55-1.02 [facility] Comment on above: Performed By: #### P T, PTT #### [facility] [address] [address] [address] Gasper Garber EGFR-AF EMIRATI 18 mL/min/1.73m2 Critically low >=60 [facility] Comment on above: Performed By: #### P T, PTT #### [facility] [address] [address] [address] Gasper Garber EGFR-NON AF EMIRATI 15 mL/min/1.73m2 Critically low >=60 [facility] Comment on above: Performed By: #### P T, PTT #### [facility] [address] [address] [address] Gasper Garber Globulin (S) [Mass/Vol] 3.2 g/dL Normal [facility] Comment on above: Performed By: #### P T, PTT #### [facility] [address] [place] [address] Dr. Gasper Garber Glucose [Mass/Vol] 158 mg/dL Critically high 74-106 [facility] Comment on above: Performed By: #### P T, PTT #### [facility] [address] [address] [address] Gasper Garber Potassium [Moles/Vol] 4.1 mmol/L Normal 3.5-5.1 [facility] Comment on above: Performed By: #### P T, PTT #### [facility] [address] [place] [address] Dr. Gasper Garber Protein [Mass/Vol] 7.1 g/dL Normal 6.4-8.2 [facility] Comment on above: Performed By: #### P T, PTT #### [facility] [address] [address] [address] Gasper Garber Sodium [Moles/Vol] 137 mmol/L Normal 136-145 [facility] Comment on above: Performed By: #### P T, PTT #### [facility] [address] [address] [address] Gasper Garber Urea nitrogen [Mass/Vol] 48.0 mg/dL Critically high 7.0-18.0 [facility] Comment on above: Performed By: #### P T, PTT #### [facility] [address] [place] [address] Dr. Gasper Garber Urea nitrogen/Creatinine [Mass ratio] 15.6 mg/mg Normal [facility] Comment on above: Performed By: #### P T, PTT #### [facility] [address] [place] [address] Dr. Gasper Garber TROPONIN, HIGH SENSITIVITYon 08-16-2021 HSTROP 15.7 pg/mL Normal 4.0-51.3 [facility] Comment on above: Result Comment: CUT- OFF POINTS HAVE BEEN ESTABLISHED BASED ON THE FOURTH UNIVERSAL DEFINITIONS OF MYOCARDIAL INFARCTION. THE UPPER REFERENCE LIMIT (URL) OF TROPONIN, DEFINED THE 99TH PERCENTILE OF cTnI DISTRIBUTION IN A REFERENCE POPULATION, HAS BEEN CONFIRMED THE DECISION THRESHOLD FOR MS DIAGNOSIS. Performed By: #### P T, PTT #### [facility] [address] [place] [address] Dr. Gasper Garber URINE MICROSCOPIC ONLYon BACTERIA TRACE Abnormal NONE SEEN [facility] Comment on above: Performed By: #### U ARMICR #### [facility] [address] [place] [address] Dr. Gasper Garber Bacteria identified Cx Nom (U) INDICATED Normal [facility] Comment on above: Performed By: #### U ARMICR #### [facility] [address] [place] [address] Dr. Gasper Garber CAST NONE SEEN Normal NONE SEEN [facility] Comment on above: Performed By: #### U ARMICR #### [facility] [address] [place] [address] Dr. Gasper Garber Crystals LM Nom (Urine sed) NONE SEEN Normal NONE SEEN [facility] Comment on above: Performed By: #### U ARMICR #### [facility] [address] [place] [address] Dr. Gasper Garber Epithelial cells LM Ql (Urine sed) FEW Abnormal NONE SEEN /RARE [facility] Comment on above: Performed By: #### U ARMICR #### [facility] [address] [place] [address] Dr. Gasper Garber MUCOUS NONE SEEN Normal NONE SEEN [facility] Comment on above: Performed By: #### U ARMICR #### [facility] [address] [address] [address] Gasper Garber RBC 0-2 Normal 0-2 [facility] Comment on above: Performed By: #### U ARMICR #### [facility] [address] [address] [address] Gasper Garber WBC 10-20 Abnormal NONE SEEN [facility] Comment on above: Performed By: #### U ARMICR #### [facility] [address] [address] [address] Gasper Garber PROF CHEM 8 (BAS METB)on Anion gap [Moles/Vol] 13.5 mmol/L Normal [facility] Comment on above: Performed By: #### P T, PTT #### [facility] [address] [place] [address] Dr. Gasper Garber Calcium [Mass/Vol] 9.6 mg/dL Normal 8.5-10.1 [facility] Comment on above: Performed By: #### P T, PTT #### [facility] [address] [address] [address] Gasper Garber Chloride [Moles/Vol] 102 mmol/L Normal 98-107 [facility] Comment on above: Performed By: #### P T, PTT #### [facility] [address] [place] [address] Dr. Gasper Garber CO2 [Moles/Vol] 29.0 mmol/L Normal 21.0-32.0 [facility] Comment on above: Performed By: #### P T, PTT #### [facility] [address] [address] [address] Gasper Garber Creatinine [Mass/Vol] 2.05 mg/dL Critically high 0.55-1.02 [facility] Comment on above: Performed By: #### P T, PTT #### [facility] [address] [address] [address] Gasper Garber EGFR-AF EMIRATI 29 mL/min/1.73m2 Critically low >=60 [facility] Comment on above: Performed By: #### P T, PTT #### [facility] [address] [address] [address] Gasper Garber EGFR-NON AF EMIRATI 24 mL/min/1.73m2 Critically low >=60 [facility] Comment on above: Performed By: #### P T, PTT #### [facility] [address] [place] [address] Dr. Gasper Garber Glucose [Mass/Vol] 203 mg/dL Critically high 74-106 [facility] Comment on above: Performed By: #### P T, PTT #### [facility] [address] [place] [address] Dr. Gasper Garber Potassium [Moles/Vol] 4.5 mmol/L Normal 3.5-5.1 [facility] Comment on above: Performed By: #### P T, PTT #### [facility] [address] [place] [address] Dr. Gasper Garber Sodium [Moles/Vol] 140 mmol/L Normal 136-145 [facility] Comment on above: Performed By: #### P T, PTT #### [facility] [address] [place] [address] Dr. Gasper Garber Urea nitrogen [Mass/Vol] 34.0 mg/dL Critically high 7.0-18.0 [facility] Comment on above: Performed By: #### P T, PTT #### [facility] [address] [place] [address] Dr. Gasper Garber Urea nitrogen/Creatinine [Mass ratio] 16.6 mg/mg Normal [facility] Comment on above: Performed By: #### P T, PTT #### [facility] [address] [place] [address] Dr. Gasper Garber BNPon 07-27-2021 Natriuretic peptide B (Bld) [Mass/Vol] 1454.0 pg/mL Critically high <=900.0 [facility] Comment on above: Performed By: #### BERNIE MALDONADO #### [facility] [address] [place] [address] Dr. Gasper Garber CBC AUTO DIFFon 07-27-2021 BASO # 0.1 103/ul Normal 0.0-0.1 [facility] Comment on above: Performed By: #### E YANICK UMICRO #### [facility] [address] [place] [address] Dr. Gasper Garber Basophils/100 WBC (Bld) 0.7 % Normal 0.2-2.0 [facility] Comment on above: Performed By: #### E YANICK, UMICRO #### [facility] [address] [place] [address] Dr. Gasper Garber EO # 0.3 103/ul Normal 0.0-0.7 [facility] Comment on above: Performed By: #### Bernice HERNDON, UMICRO #### [facility] [address] [place] [address] Dr. Gasper Garber Eosinophils/100 WBC (Bld) 4.3 % Normal 0.9-7.0 [facility] Comment on above: Performed By: #### Bernice HERNDON UMICRO #### [facility] [address] [place] [address] Dr. Gasper Garber Erythrocyte distribution width (RBC) [Ratio] 13.0 % Normal 11.0-15.0 [facility] Comment on above: Performed By: #### Bernice HERNDON, UMICRO #### [facility] [address] [place] [address] Dr. Gasper Garber Hematocrit (Bld) [Volume fraction] 34.5 % Critically low 36.0-48.0 [facility] Comment on above: Performed By: #### Bernice HERNDON, UMICRO #### [facility] [address] [place] [address] Dr. Gasper Garber Hemoglobin (Bld) [Mass/Vol] 11.0 g/dL Critically low 12.0-16.0 [facility] Comment on above: Performed By: #### Bernice HERNDON, UMICRO #### [facility] [address] [place] [address] Dr. Gasper Garber IG # 0.02 10e3/ul Normal 0.00-0.03 [facility] Comment on above: Performed By: #### BERNIE MALDONADO #### [facility] [address] [place] [address] Dr. Gasper Garber IG % 0.3 % Normal 0.0-0.5 [facility] Comment on above: Performed By: #### TONI MALDONADORO #### [facility] [address] [place] [address] Dr. Gasper Garber LYMPH # 1.1 103/ul Critically low 1.2-3.8 [facility] Comment on above: Performed By: #### BERNIE MALDONADO #### [facility] [address] [place] [address] Dr. Gasper Garber Lymphocytes/100 WBC (Bld) 14.3 % Critically low 20.5-60.0 [facility] Comment on above: Performed By: #### TONI MALDONADORO #### [facility] [address] [place] [address] Dr. Gasper Garber MANUAL DIFF REQ NO Normal [facility] Comment on above: Performed By: #### BERNIE MALDONADO #### [facility] [address] [place] [address] Dr. Gasper Garber MCH (RBC) [Entitic mass] 30.9 pg Normal 26.7-34.0 [facility] Comment on above: Performed By: #### TONI MALDONADORO #### [facility] [address] [place] [address] Dr. Gasper Garber MCHC (RBC) [Mass/Vol] 31.9 g/dL Normal 29.9-35.2 [facility] Comment on above: Performed By: #### TONI MALDONADORO #### [facility] [address] [place] [address] Dr. Gasper Garber MCV (RBC) [Entitic vol] 96.9 fL Normal 81.0-99.0 [facility] Comment on above: Performed By: #### TONI MALDONADORO #### [facility] [address] [address] [address] Gasper Garber MONO # 0.7 103/ul Normal 0.3-0.8 [facility] Comment on above: Performed By: #### Bernice HERNDON UMICRO #### [facility] [address] [place] [address] Dr. Gasper Garber Monocytes/100 WBC (Bld) 9.3 % Normal 1.7-12.0 [facility] Comment on above: Performed By: #### Bernice HERNDON UMICRO #### [facility] [address] [place] [address] Dr. Gasper Garber NEUT # 5.4 103/ul Normal 1.4-6.5 [facility] Comment on above: Performed By: #### Bernice HERNDON UMICRO #### [facility] [address] [place] [address] Dr. Gasper Garber Neutrophils/100 WBC (Bld) 71.1 % Normal 43.0-75.0 [facility] Comment on above: Performed By: #### Bernice HERNDON ICRO #### [facility] [address] [place] [address] Dr. Gasper Garber Platelet mean volume (Bld) [Entitic vol] 10.2 fL Normal 9.5-13.5 [facility] Comment on above: Performed By: #### Bernice HERNDON ICRO #### [facility] [address] [place] [address] Dr. Gasper Garber PLT 284 103/ul Normal 150-450 [facility] Comment on above: Performed By: #### Bernice HERNDON UMICRO #### [facility] [address] [place] [address] Dr. Gasper Garber RBC 3.56 106/ul Critically low 4.20-5.40 [facility] Comment on above: Performed By: #### Bernice HERNDON UMICRO #### [facility] [address] [place] [address] Dr. Gasper Garber WBC 7.6 103/ul Normal 4.0-11.0 [facility] Comment on above: Performed By: #### TONI MALDONADORO #### [facility] [address] [address] [address] Gasper Garber PROF CHEM 8 (BAS METB)on Anion gap [Moles/Vol] 15.3 mmol/L Normal [facility] Comment on above: Performed By: #### TONI MALDONADORO #### [facility] [address] [address] [address] Gasper Garber Calcium [Mass/Vol] 9.1 mg/dL Normal 8.5-10.1 [facility] Comment on above: Performed By: #### TONI MALDONADORO #### [facility] [address] [place] [address] Dr. Gasper Garber Chloride [Moles/Vol] 100 mmol/L Normal 98-107 [facility] Comment on above: Performed By: #### TONI MALDONADORO #### [facility] [address] [place] [address] Dr. Gasper Garber CO2 [Moles/Vol] 26.8 mmol/L Normal 21.0-32.0 [facility] Comment on above: Performed By: #### TONI MALDONADORO #### [facility] [address] [place] [address] Dr. Gasper Garber Creatinine [Mass/Vol] 2.83 mg/dL Critically high 0.55-1.02 [facility] Comment on above: Performed By: #### TONI MALDONADORO #### [facility] [address] [place] [address] Dr. Gasper Garber EGFR-AF EMIRATI 20 mL/min/1.73m2 Critically low >=60 [facility] Comment on above: Performed By: #### TONI MALDONADORO #### [facility] [address] [place] [address] Dr. Gasper Garber EGFR-NON AF EMIRATI 16 mL/min/1.73m2 Critically low >=60 [facility] Comment on above: Performed By: #### E RUR, UMICRO #### [facility] [address] [place] [address] Dr. Gasper Garber Glucose [Mass/Vol] 141 mg/dL Critically high 74-106 [facility] Comment on above: Performed By: #### E MINR, UMICRO #### [facility] [address] [place] [address] Dr. Gasper Garber Potassium [Moles/Vol] 4.1 mmol/L Normal 3.5-5.1 [facility] Comment on above: Performed By: #### E YANICK, UMICRO #### [facility] [address] [place] [address] Dr. Gasper Garber Sodium [Moles/Vol] 138 mmol/L Normal 136-145 [facility] Comment on above: Performed By: #### Bernice HERNDON, UMICRO #### [facility] [address] [place] [address] Dr. Gasper Garber Urea nitrogen [Mass/Vol] 48.0 mg/dL Critically high 7.0-18.0 [facility] Comment on above: Performed By: #### Bernice HERNDON, UMICRO #### [facility] [address] [place] [address] Dr. Gasper Garber Urea nitrogen/Creatinine [Mass ratio] 17.0 mg/mg Normal [facility] Comment on above: Performed By: #### Bernice HERNDON, UMICRO #### [facility] [address] [place] [address] Dr. Gasper Garber CULTURE URINEon 07-18-2021 CULTURE [...] Trimethoprim/Sulfamethoxazo le <=20 S F Normal [facility] Comment on above: Performed By: #### A CETON #### [facility] [address] [place] [address] Dr. Gasper Garbre BNPon 07-17-2021 Natriuretic peptide B (Bld) [Mass/Vol] 2592.0 pg/mL Critically high <=900.0 [facility] Comment on above: Performed By: #### U RCX #### [facility] [address] [place] [address] Dr. Gasper Garber CBC AUTO DIFFon 07-17-2021 BASO # 0.0 103/ul Normal 0.0-0.1 [facility] Comment on above: Performed By: #### L ACT #### [facility] [address] [place] [address] Dr. Gasper Garber Basophils/100 WBC (Bld) 0.4 % Normal 0.2-2.0 [facility] Comment on above: Performed By: #### L ACT #### [facility] [address] [place] [address] Dr. Gasper Garber EO # 0.3 103/ul Normal 0.0-0.7 [facility] Comment on above: Performed By: #### L ACT #### [facility] [address] [place] [address] Dr. Gasper Garber Eosinophils/100 WBC (Bld) 4.3 % Normal 0.9-7.0 [facility] Comment on above: Performed By: #### L ACT #### [facility] [address] [place] [address] Dr. Gasper Garber Erythrocyte distribution width (RBC) [Ratio] 12.5 % Normal 11.0-15.0 [facility] Comment on above: Performed By: #### L ACT #### [facility] [address] [place] [address] Dr. Gasper Garber Hematocrit (Bld) [Volume fraction] 30.3 % Critically low 36.0-48.0 [facility] Comment on above: Performed By: #### L ACT #### [facility] [address] [address] [address] Gasper Garber Hemoglobin (Bld) [Mass/Vol] 9.8 g/dL Critically low 12.0-16.0 [facility] Comment on above: Performed By: #### L ACT #### [facility] [address] [address] [address] Gasper Garber IG # 0.02 10e3/ul Normal 0.00-0.03 [facility] Comment on above: Performed By: #### L ACT #### [facility] [address] [address] [address] Gasper Garber IG % 0.3 % Normal 0.0-0.5 [facility] Comment on above: Performed By: #### L ACT #### [facility] [address] [place] [address] Dr. Gasper Garber LYMPH # 1.5 103/ul Normal 1.2-3.8 [facility] Comment on above: Performed By: #### L ACT #### [facility] [address] [place] [address] Dr. Gasper Garber Lymphocytes/100 WBC (Bld) 19.8 % Critically low 20.5-60.0 [facility] Comment on above: Performed By: #### L ACT #### [facility] [address] [place] [address] Dr. Gasper Garber MANUAL DIFF REQ NO Normal [facility] Comment on above: Performed By: #### L ACT #### [facility] [address] [place] [address] Dr. Gasper Garber MCH (RBC) [Entitic mass] 31.3 pg Normal 26.7-34.0 [facility] Comment on above: Performed By: #### L ACT #### [facility] [address] [place] [address] Dr. Gasper Garber MCHC (RBC) [Mass/Vol] 32.3 g/dL Normal 29.9-35.2 [facility] Comment on above: Performed By: #### L ACT #### [facility] [address] [address] [address] Gasper Garber MCV (RBC) [Entitic vol] 96.8 fL Normal 81.0-99.0 [facility] Comment on above: Performed By: #### L ACT #### [facility] [address] [address] [address] Gasper Garber MONO # 0.9 103/ul Critically high 0.3-0.8 [facility] Comment on above: Performed By: #### L ACT #### [facility] [address] [address] [address] Gasper Garber Monocytes/100 WBC (Bld) 11.7 % Normal 1.7-12.0 [facility] Comment on above: Performed By: #### L ACT #### [facility] [address] [place] [address] Dr. Gasper Garber NEUT # 4.8 103/ul Normal 1.4-6.5 [facility] Comment on above: Performed By: #### L ACT #### [facility] [address] [place] [address] Dr. Gasper Garber Neutrophils/100 WBC (Bld) 63.5 % Normal 43.0-75.0 [facility] Comment on above: Performed By: #### L ACT #### [facility] [address] [place] [address] Dr. Gasper Garber Platelet mean volume (Bld) [Entitic vol] 10.9 fL Normal 9.5-13.5 [facility] Comment on above: Performed By: #### L ACT #### [facility] [address] [place] [address] Dr. Gasper Garber PLT 193 103/ul Normal 150-450 [facility] Comment on above: Performed By: #### L ACT #### [facility] [id number] Gasper Garber RBC 3.13 106/ul Critically low 4.20-5.40 [facility] Comment on above: Performed By: #### L ACT #### [facility] [address] [address] [address] Gasper Garber WBC 7.5 103/ul Normal 4.0-11.0 [facility] Comment on above: Performed By: #### L ACT #### [facility] [address] [place] [address] Dr. Gasper Garber POINT OF CARE GLUCOSEon 06-20 Glucose [Mass/Vol] 244 mg/dL Critically high 74-106 [facility] Comment on above: Performed By: #### L ACT #### [facility] [address] [place] [address] Dr. Gasper Garber Glucose [Mass/Vol] 151 mg/dL Critically high 74-106 [facility] Comment on above: Performed By: #### E BERNIE HERNDON #### [facility] [address] [place] [address] Dr. Gasper Garber PROF 14(COMP METB)on 022 Albumin [Mass/Vol] 2.9 g/dL Critically low 3.4-5.0 [facility] Comment on above: Performed By: #### U RCX #### [facility] [address] [place] [address] Dr. Gasper Garber Albumin/Globulin [Mass ratio] 1.0 {ratio} Normal [facility] Comment on above: Performed By: #### U RCX #### [facility] [address] [place] [address] Dr. Gasper Garber ALP [Catalytic activity/Vol] 63 U/L Normal 46-116 [facility] Comment on above: Performed By: #### U RCX #### [facility] [address] [place] [address] Dr. Gasper Garber ALT [Catalytic activity/Vol] 33 U/L Normal 14-59 [facility] Comment on above: Performed By: #### U RCX #### [facility] [address] [place] [address] Dr. Gasper Garber Anion gap [Moles/Vol] 13.1 mmol/L Normal [facility] Comment on above: Performed By: #### U RCX #### [facility] [address] [address] [address] Gasper Garber AST [Catalytic activity/Vol] 30 U/L Normal 15-37 [facility] Comment on above: Performed By: #### U RCX #### [facility] [address] [address] [address] Gasper Garber Bilirubin [Mass/Vol] 0.3 mg/dL Normal 0.2-1.0 [facility] Comment on above: Performed By: #### U RCX #### [facility] [address] [address] [address] Gasper Garber Calcium [Mass/Vol] 8.7 mg/dL Normal 8.5-10.1 [facility] Comment on above: Performed By: #### U RCX #### [facility] [address] [address] [address] Gasper Garber Chloride [Moles/Vol] 109 mmol/L Critically high 98-107 [facility] Comment on above: Performed By: #### U RCX #### [facility] [address] [address] [address] Gasper Garber CO2 [Moles/Vol] 24.5 mmol/L Normal 21.0-32.0 [facility] Comment on above: Performed By: #### U RCX #### [facility] [address] [place] [address] Dr. Gasper Garber Creatinine [Mass/Vol] 1.33 mg/dL Critically high 0.55-1.02 [facility] Comment on above: Performed By: #### U RCX #### [facility] [address] [address] [address] Gasper Garber EGFR-AF EMIRATI 47 mL/min/1.73m2 Critically low >=60 [facility] Comment on above: Performed By: #### U RCX #### [facility] [address] [address] [address] Gasper Garber EGFR-NON AF EMIRATI 39 mL/min/1.73m2 Critically low >=60 [facility] Comment on above: Performed By: #### U RCX #### [facility] [address] [address] [address] Gasper Garber Globulin (S) [Mass/Vol] 3.0 g/dL Normal [facility] Comment on above: Performed By: #### U RCX #### [facility] [address] [place] [address] Dr. Gasper Garber Glucose [Mass/Vol] 142 mg/dL Critically high 74-106 [facility] Comment on above: Performed By: #### U RCX #### [facility] [address] [address] [address] Gasper Garber Potassium [Moles/Vol] 3.6 mmol/L Normal 3.5-5.1 [facility] Comment on above: Performed By: #### U RCX #### [facility] [address] [place] [address] Dr. Gasper Garber Protein [Mass/Vol] 5.9 g/dL Critically low 6.4-8.2 [facility] Comment on above: Performed By: #### U RCX #### [facility] [address] [place] [address] Dr. Gasper Garber Sodium [Moles/Vol] 143 mmol/L Normal 136-145 [facility] Comment on above: Performed By: #### U RCX #### [facility] [address] [place] [address] Dr. Gasper Garber Urea nitrogen [Mass/Vol] 25.0 mg/dL Critically high 7.0-18.0 [facility] Comment on above: Performed By: #### U RCX #### [facility] [address] [place] [address] Dr. Gasper Garber Urea nitrogen/Creatinine [Mass ratio] 18.8 mg/mg Normal [facility] Comment on above: Performed By: #### U RCX #### [facility] [address] [place] [address] Dr. Gasper Garber BNPon 07-16-2021 Natriuretic peptide B (Bld) [Mass/Vol] 761.0 pg/mL Normal <=900.0 [facility] Comment on above: Performed By: #### P T, PTT #### [facility] [address] [place] [address] Dr. Gasper Garber CBC AUTO DIFFon 07-16-2021 BASO # 0.1 103/ul Normal 0.0-0.1 [facility] Comment on above: Performed By: #### L ACT #### [facility] [address] [place] [address] Dr. Gasper Garber Basophils/100 WBC (Bld) 0.6 % Normal 0.2-2.0 [facility] Comment on above: Performed By: #### L ACT #### [facility] [address] [place] [address] Dr. Gasper Garber EO # 0.2 103/ul Normal 0.0-0.7 [facility] Comment on above: Performed By: #### L ACT #### [facility] [address] [place] [address] Dr. Gasper Garber Performed By: #### P T, PTT #### [facility] [address] [place] [address] Dr. Gasper Garber Eosinophils/100 WBC (Bld) 2.3 % Normal 0.9-7.0 [facility] Comment on above: Performed By: #### L ACT #### [facility] [address] [place] [address] Dr. Gasper Garber Erythrocyte distribution width (RBC) [Ratio] 12.3 % Normal 11.0-15.0 [facility] Comment on above: Performed By: #### L ACT #### [facility] [address] [place] [address] Dr. Gasper Garber Hematocrit (Bld) [Volume fraction] 32.3 % Critically low 36.0-48.0 [facility] Comment on above: Performed By: #### L ACT #### [facility] [address] [place] [address] Dr. Gasper Garber Hemoglobin (Bld) [Mass/Vol] 10.3 g/dL Critically low 12.0-16.0 [facility] Comment on above: Performed By: #### L ACT #### [facility] [address] [place] [address] Dr. Gasper Garber IG # 0.01 10e3/ul Normal 0.00-0.03 [facility] Comment on above: Performed By: #### L ACT #### [facility] [address] [place] [address] Dr. Gasper Garber IG % 0.1 % Normal 0.0-0.5 [facility] Comment on above: Performed By: #### L ACT #### [facility] [address] [place] [address] Dr. Gasper Garber LYMPH # 1.1 103/ul Critically low 1.2-3.8 [facility] Comment on above: Performed By: #### L ACT #### [facility] [address] [place] [address] Dr. Gasper Garber Lymphocytes/100 WBC (Bld) 12.2 % Critically low 20.5-60.0 [facility] Comment on above: Performed By: #### L ACT #### [facility] [address] [place] [address] Dr. Gasper Garber MANUAL DIFF REQ NO Normal [facility] Comment on above: Performed By: #### L ACT #### [facility] [address] [place] [address] Dr. Gasper Garbre Performed By: #### P T, PTT #### [facility] [address] [place] [address] Dr. Gasper Garber MCH (RBC) [Entitic mass] 30.8 pg Normal 26.7-34.0 [facility] Comment on above: Performed By: #### L ACT #### [facility] [address] [place] [address] Dr. Gasper Garber MCHC (RBC) [Mass/Vol] 31.9 g/dL Normal 29.9-35.2 [facility] Comment on above: Performed By: #### L ACT #### [facility] [address] [place] [address] Dr. Gasper Garber MCV (RBC) [Entitic vol] 96.7 fL Normal 81.0-99.0 [facility] Comment on above: Performed By: #### L ACT #### [facility] [address] [address] [address] Gasper Garber MONO # 0.8 103/ul Normal 0.3-0.8 [facility] Comment on above: Performed By: #### L ACT #### [facility] [address] [address] [address] Gasper Garber Monocytes/100 WBC (Bld) 8.8 % Normal 1.7-12.0 [facility] Comment on above: Performed By: #### L ACT #### [facility] [address] [address] [address] Gasper Garber NEUT # 6.5 103/ul Normal 1.4-6.5 [facility] Comment on above: Performed By: #### L ACT #### [facility] [address] [address] [address] Gasper Garber Neutrophils/100 WBC (Bld) 76.0 % Critically high 43.0-75.0 [facility] Comment on above: Performed By: #### L ACT #### [facility] [address] [address] [address] Gasper Garber Platelet mean volume (Bld) [Entitic vol] 10.6 fL Normal 9.5-13.5 [facility] Comment on above: Performed By: #### L ACT #### [facility] [address] [address] [address] Gasper Garber PLT 214 103/ul Normal 150-450 [facility] Comment on above: Performed By: #### L ACT #### [facility] [address] [address] [address] Gasper Garber RBC 3.34 106/ul Critically low 4.20-5.40 [facility] Comment on above: Performed By: #### L ACT #### [facility] [address] [address] [address] Gasper Garber WBC 8.6 103/ul Normal 4.0-11.0 [facility] Comment on above: Performed By: #### L ACT #### [facility] [address] [place] [address] Dr. Gasper Garber BASO # 0.0 103/ul Normal 0.0-0.1 [facility] Comment on above: Performed By: #### P T, PTT #### [facility] [address] [place] [address] Dr. Gasper Garber Basophils/100 WBC (Bld) 0.4 % Normal 0.2-2.0 [facility] Comment on above: Performed By: #### P T, PTT #### [facility] [address] [place] [address] Dr. Gasepr Garber Eosinophils/100 WBC (Bld) 2.5 % Normal 0.9-7.0 [facility] Comment on above: Performed By: #### P T, PTT #### [facility] [address] [place] [address] Dr. Gasper Garber Erythrocyte distribution width (RBC) [Ratio] 12.4 % Normal 11.0-15.0 [facility] Comment on above: Performed By: #### P T, PTT #### [facility] [address] [place] [address] Dr. Gasper Garber Hematocrit (Bld) [Volume fraction] 29.3 % Critically low 36.0-48.0 [facility] Comment on above: Performed By: #### P T, PTT #### [facility] [address] [place] [address] Dr. Gasper Garber Hemoglobin (Bld) [Mass/Vol] 9.5 g/dL Critically low 12.0-16.0 [facility] Comment on above: Performed By: #### P T, PTT #### [facility] [address] [place] [address] Dr. Gasper Garber IG # 0.02 10e3/ul Normal 0.00-0.03 [facility] Comment on above: Performed By: #### P T, PTT #### [facility] [address] [place] [address] Dr. Gasper Garber IG % 0.2 % Normal 0.0-0.5 [facility] Comment on above: Performed By: #### P T, PTT #### [facility] [address] [place] [address] Dr. Gasper Garber LYMPH # 1.3 103/ul Normal 1.2-3.8 [facility] Comment on above: Performed By: #### P T, PTT #### [facility] [address] [place] [address] Dr. Gasper Garber Lymphocytes/100 WBC (Bld) 16.4 % Critically low 20.5-60.0 [facility] Comment on above: Performed By: #### P T, PTT #### [facility] [address] [place] [address] Dr. Gasper Garber MCH (RBC) [Entitic mass] 31.3 pg Normal 26.7-34.0 [facility] Comment on above: Performed By: #### P T, PTT #### [facility] [address] [place] [address] Dr. Gasper Garber MCHC (RBC) [Mass/Vol] 32.4 g/dL Normal 29.9-35.2 [facility] Comment on above: Performed By: #### P T, PTT #### [facility] [address] [place] [address] Dr. Gasper Garber MCV (RBC) [Entitic vol] 96.4 fL Normal 81.0-99.0 [facility] Comment on above: Performed By: #### P T, PTT #### [facility] [address] [place] [address] Dr. Gasper Garber MONO # 0.9 103/ul Critically high 0.3-0.[address] [facility] Comment on above: Performed By: #### P T, PTT #### [facility] [address] [place] [address] Dr. Gasper Garber Monocytes/100 WBC (Bld) 10.5 % Normal 1.7-12.0 [facility] Comment on above: Performed By: #### P T, PTT #### [facility] [address] [place] [address] Dr. Gasper Garber NEUT # 5.7 103/ul Normal 1.4-6.5 [facility] Comment on above: Performed By: #### P T, PTT #### [facility] [address] [place] [address] Dr. Gasper Garber Neutrophils/100 WBC (Bld) 70.0 % Normal 43.0-75.0 [facility] Comment on above: Performed By: #### P T, PTT #### [facility] [address] [place] [address] Dr. Gasper Garber Platelet mean volume (Bld) [Entitic vol] 10.9 fL Normal 9.5-13.5 [facility] Comment on above: Performed By: #### P T, PTT #### [facility] [address] [place] [address] Dr. Gasper Garber PLT 203 103/ul Normal 150-450 [facility] Comment on above: Performed By: #### P T, PTT #### [facility] [address] [place] [address] Dr. Gasper Garber RBC 3.04 106/ul Critically low 4.20-5.[address] [facility] Comment on above: Performed By: #### P T, PTT #### [facility] [address] [place] [address] Dr. Gasper Garber WBC 8.2 103/ul Normal 4.0-11.0 [facility] Comment on above: Performed By: #### P T, PTT #### [facility] [address] [place] [address] Dr. Gasper Garber CULTURE BLOODon 07-16-2021 Microscopic examination of blood, culture Culture Observations: NO GROWTH AT 5 DAYS. Normal [facility] Comment on above: Performed By: #### B [id number] #### [facility] [address] [place] [address] Dr. Gasper Garber Microscopic examination of blood, culture Culture Observations: NO GROWTH AT 5 DAYS. [facility] Comment on above: Performed By: #### A CETON #### [facility] [address] [place] [address] Dr. Gasper Garber POINT OF CARE GLUCOSEon 05-2022 Glucose [Mass/Vol] 155 mg/dL Critically high 74-106 [facility] Comment on above: Performed By: #### P T, PTT #### [facility] [address] [address] [address] Gasper Garber Glucose [Mass/Vol] 165 mg/dL Critically high 74-106 [facility] Comment on above: Performed By: #### P OCGLUC #### [facility] [address] [address] [address] Gasper Garber Glucose [Mass/Vol] 232 mg/dL Critically high 74-106 [facility] Comment on above: Performed By: #### E BERNIE HERNDON #### [facility] [address] [place] [address] Dr. Gasper Garber PROF 14(COMP METB)on 022 Albumin [Mass/Vol] 2.9 g/dL Critically low 3.4-5.0 [facility] Comment on above: Performed By: #### P T, PTT #### [facility] [address] [place] [address] Dr. Gasper Garber Albumin/Globulin [Mass ratio] 1.0 {ratio} [facility] Comment on above: Performed By: #### P T, PTT #### [facility] [address] [place] [address] Dr. Gasper Garber ALP [Catalytic activity/Vol] 62 U/L Normal 46-116 [facility] Comment on above: Performed By: #### P T, PTT #### [facility] [address] [place] [address] Dr. Gasper Garber ALT [Catalytic activity/Vol] 34 U/L Normal 14-59 [facility] Comment on above: Performed By: #### P T, PTT #### [facility] [address] [place] [address] Dr. Gasper Garber Anion gap [Moles/Vol] 10.8 mmol/L Normal [facility] Comment on above: Performed By: #### P T, PTT #### [facility] [address] [address] [address] Gasper Garber AST [Catalytic activity/Vol] 14 U/L Critically low 15-37 [facility] Comment on above: Performed By: #### P T, PTT #### [facility] [address] [place] [address] Dr. Gasper Garber Bilirubin [Mass/Vol] 0.4 mg/dL Normal 0.2-1.0 [facility] Comment on above: Performed By: #### P T, PTT #### [facility] [address] [place] [address] Dr. Gasper Garber Calcium [Mass/Vol] 8.4 mg/dL Critically low 8.5-10.1 Th [facility] Comment on above: Performed By: #### P T, PTT #### [facility] [address] [place] [address] Dr. Gasper Garber Chloride [Moles/Vol] 105 mmol/L Normal 98-107 [facility] Comment on above: Performed By: #### P T, PTT #### [facility] [address] [place] [address] Dr. Gasper Garber CO2 [Moles/Vol] 26.3 mmol/L Normal 21.0-32.0 [facility] Comment on above: Performed By: #### P T, PTT #### [facility] [address] [place] [address] Dr. Gasper Garber Creatinine [Mass/Vol] 2.20 mg/dL Critically high 0.55-1.02 [facility] Comment on above: Performed By: #### P T, PTT #### [facility] [address] [place] [address] Dr. Gasper Garber EGFR-AF EMIRATI 26 mL/min/1.73m2 Critically low >=60 [facility] Comment on above: Performed By: #### P T, PTT #### [facility] [address] [place] [address] Dr. Gasper Garber EGFR-NON AF EMIRATI 22 mL/min/1.73m2 Critically low >=60 [facility] Comment on above: Performed By: #### P T, PTT #### [facility] [address] [place] [address] Dr. Gasper Garber Globulin (S) [Mass/Vol] 2.9 g/dL Normal [facility] Comment on above: Performed By: #### P T, PTT #### [facility] [address] [place] [address] Dr. Gasper Garber Glucose [Mass/Vol] 167 mg/dL Critically high 74-106 [facility] Comment on above: Performed By: #### P T, PTT #### [facility] [address] [place] [address] Dr. Gasper Garber Potassium [Moles/Vol] 3.1 mmol/L Critically low 3.5-5.1 [facility] Comment on above: Performed By: #### P T, PTT #### [facility] [address] [place] [address] Dr. Gasper Garber Protein [Mass/Vol] 5.8 g/dL Critically low 6.4-8.2 [facility] Comment on above: Performed By: #### P T, PTT #### [facility] [address] [place] [address] Dr. Gasper Garber Sodium [Moles/Vol] 139 mmol/L Normal 136-145 [facility] Comment on above: Performed By: #### P T, PTT #### [facility] [address] [place] [address] Dr. Gasper Garber Urea nitrogen [Mass/Vol] 41.0 mg/dL Critically high 7.0-18.0 [facility] Comment on above: Performed By: #### P T, PTT #### [facility] [address] [place] [address] Dr. Gasper Garber Urea nitrogen/Creatinine [Mass ratio] 18.6 mg/mg Normal [facility] Comment on above: Performed By: #### P T, PTT #### [facility] [address] [place] [address] Dr. Gasper Garber CBC AUTO DIFFon 07-15-2021 BASO # 0.0 103/ul Normal 0.0-0.1 [facility] Comment on above: Performed By: #### P T, PTT #### [facility] [address] [place] [address] Dr. Gasper Garber Basophils/100 WBC (Bld) 0.4 % Normal 0.2-2.0 [facility] Comment on above: Performed By: #### P T, PTT #### [facility] [address] [place] [address] Dr. Gasper Garber EO # 0.2 103/ul Normal 0.0-0.7 [facility] Comment on above: Performed By: #### P T, PTT #### [facility] [address] [place] [address] Dr. Gasper Garber Eosinophils/100 WBC (Bld) 1.6 % Normal 0.9-7.0 [facility] Comment on above: Performed By: #### P T, PTT #### [facility] [address] [place] [address] Dr. Gasper Garber Erythrocyte distribution width (RBC) [Ratio] 12.4 % Normal 11.0-15.0 [facility] Comment on above: Performed By: #### P T, PTT #### [facility] [address] [place] [address] Dr. Gasper Garber Hematocrit (Bld) [Volume fraction] 34.7 % Critically low 36.0-48.0 [facility] Comment on above: Performed By: #### P T, PTT #### [facility] [address] [place] [address] Dr. Gasper Garber Hemoglobin (Bld) [Mass/Vol] 11.4 g/dL Critically low 12.0-16.0 [facility] Comment on above: Performed By: #### P T, PTT #### [facility] [address] [place] [address] Dr. Gasper Garber IG # 0.02 10e3/ul Normal 0.00-0.03 [facility] Comment on above: Performed By: #### P T, PTT #### [facility] [address] [place] [address] Dr. Gasper Garber IG % 0.2 % Normal 0.0-0.5 [facility] Comment on above: Performed By: #### P T, PTT #### [facility] [address] [place] [address] Dr. Gasper Garber LYMPH # 1.6 103/ul Normal 1.2-3.8 [facility] Comment on above: Performed By: #### P T, PTT #### [facility] [address] [place] [address] Dr. Gasper Garber Lymphocytes/100 WBC (Bld) 17.7 % Critically low 20.5-60.0 [facility] Comment on above: Performed By: #### P T, PTT #### [facility] [address] [place] [address] Dr. Gasper Garber MANUAL DIFF REQ NO Normal [facility] Comment on above: Performed By: #### P T, PTT #### [facility] [address] [place] [address] Dr. Gasper Garber MCH (RBC) [Entitic mass] 31.1 pg Normal 26.7-34.0 [facility] Comment on above: Performed By: #### P T, PTT #### [facility] [facility] [address] [place] [address] Dr. Gasper Garber MCHC (RBC) [Mass/Vol] 32.9 g/dL Normal 29.9-35.2 [facility] Comment on above: Performed By: #### P T, PTT #### [facility] [address] [place] [address] Dr. Gasper Garber MCV (RBC) [Entitic vol] 94.8 fL Normal 81.0-99.0 [facility] Comment on above: Performed By: #### P T, PTT #### [facility] [address] [place] [address] Dr. Gasper Garber MONO # 1.0 103/ul Critically high 0.3-0.[address] [facility] Comment on above: Performed By: #### P T, PTT #### [facility] [address] [place] [address] Dr. Gasper Garber Monocytes/100 WBC (Bld) 10.3 % Normal 1.7-12.0 [facility] Comment on above: Performed By: #### P T, PTT #### [facility] [address] [place] [address] Dr. Gasper Garber NEUT # 6.4 103/ul Normal 1.4-6.5 [facility] Comment on above: Performed By: #### P T, PTT #### [facility] [address] [place] [address] Dr. Gasper Garber Neutrophils/100 WBC (Bld) 69.8 % Normal 43.0-75.0 [facility] Comment on above: Performed By: #### P T, PTT #### [facility] [address] [place] [address] Dr. Gasper Garber Platelet mean volume (Bld) [Entitic vol] 10.4 fL Normal 9.5-13.5 [facility] Comment on above: Performed By: #### P T, PTT #### [facility] [address] [place] [address] Dr. Gasper Garber PLT 269 103/ul Normal 150-450 [facility] Comment on above: Performed By: #### P T, PTT #### [facility] [address] [place] [address] Dr. Gasper Garber RBC 3.66 106/ul Critically low 4.20-5.40 [facility] Comment on above: Performed By: #### P T, PTT #### [facility] [address] [place] [address] Dr. Gasper Garber WBC 9.2 103/ul Normal 4.0-11.0 [facility] Comment on above: Performed By: #### P T, PTT #### [facility] [address] [place] [address] ABD/PELVIS WO CONon [...] NASRIN CHIU Date: 2021-07-15 18:16 Normal [facility] Covid-19 PCR (CVDTB)on 06-20 SARS-CoV-2 (COVID-19) RNA ANA LUISA+probe Ql (Unsp spec) Not detected Normal NOT DETECTED [facility] Comment on above: Result Comment: When [...] for this test is supported by the [place] of Health and Human Service's declaration that [...] used). Performed By: #### L ACT #### [facility] [address] [place] [address] Dr. Gasper JENKINS URINE PROFILEon 2 Bilirubin Ql (U) Negative Normal NEGATIVE [facility] Comment on above: Performed By: #### Bernice HERNDON UMICRO #### [facility] [address] [place] [address] Dr. Gasper Garber Clarity (U) CLEAR Normal CLEAR [facility] Comment on above: Performed By: #### E YANICK UMICRO #### [facility] [address] [address] [address] Gasper Garber Color (U) LT. YELLOW Normal YELLOW [facility] Comment on above: Performed By: #### E YANICK UMICRO #### [facility] [address] [place] [address] Dr. Gasper RIVAS A micrscopic examina tion will be performed if indicated. Normal [facility] Comment on above: Performed By: #### Bernice HERNDON UMICRO #### [facility] [address] [place] [address] Dr. Gasper Garber Glucose Ql (U) Negative Normal NEGATIVE [facility] Comment on above: Performed By: #### Bernice HERNDON UMICRO #### [facility] [address] [place] [address] Dr. Gasper Garber Hemoglobin Ql (U) Negative Normal NEGATIVE [facility] Comment on above: Performed By: #### Bernice HERNDON UMICRO #### [facility] [address] [place] [address] Dr. Gasper Garber Ketones Ql (U) Negative Normal NEGATIVE [facility] Comment on above: Performed By: #### Bernice HERNDON UMICRO #### [facility] [address] [place] [address] Dr. Gasper Garber LEUKOCYTES Negative Normal NEGATIVE [facility] Comment on above: Performed By: #### Bernice HERNDON UMICRO #### [facility] [address] [place] [address] Dr. Gasper Garber Nitrite Ql (U) Negative Normal NEGATIVE [facility] Comment on above: Performed By: #### Bernice HERNDON UMICRO #### [facility] [address] [place] [address] Dr. Gasper Garber pH (U) 5.5 [pH] Normal 5-9 [facility] Comment on above: Performed By: #### BERNIE MALDONADO #### [facility] [address] [place] [address] Dr. Gasper Garber SPEC GRAVITY 1.020 Normal 1.005-<=1.0 25 [facility] Comment on above: Performed By: #### TONI MALDONADORO #### [facility] [address] [place] [address] Dr. Gasper Garber UA PROTEIN TRACE Normal NEGATIVE/ TRACE [facility] Comment on above: Performed By: #### BERNIE MALDONADO #### [facility] [address] [place] [address] Dr. Gasper Garber UR MICRO IND INDICATED Normal [facility] Comment on above: Performed By: #### BERNIE MALDONADO #### [facility] [address] [place] [address] Dr. Gasper Garber Urobilinogen Qn (U) 0.2 {Kaushik'U}/dL Normal 0.2 - 1. 0 [facility] Comment on above: Performed By: #### TONI MALDONADORO #### [facility] [address] [place] [address] Dr. Gasper Garber FREE T3on 07-15-2021 FREE T3 2.45 pg/mlL Normal 2.18-3.98 [facility] Comment on above: Performed By: #### P T, PTT #### [facility] [address] [place] [address] Dr. Gasper Garber FREE T4on 07-15-2021 Free T4 [Mass/Vol] 1.19 ng/dL Normal 0.76-1.46 [facility] Comment on above: Performed By: #### A CETON #### [facility] [address] [place] [address] Dr. Gasper Garber LACTATE/LACTIC ACIDon 2021 Lactate [Moles/Vol] 2.0 mmol/L Critically high 0.4-1.9 [facility] Comment on above: Performed By: #### L ACT #### [facility] [address] [place] [address] Dr. Gasper Garber Lactate [Moles/Vol] 4.0 mmol/L Critically high 0.4-1.9 [facility] Comment on above: Performed By: #### L ACT #### [facility] [address] [place] [address] Dr. Gasper Garber LIPASEon 07-15-2021 Lipase [Catalytic activity/Vol] 93.0 U/L Normal 73.0-393.0 [facility] Comment on above: Performed By: #### A CETON #### [facility] [address] [place] [address] Dr. Gasper Garber POINT OF CARE GLUCOSEon 06-20 Glucose [Mass/Vol] 200 mg/dL Critically high 74-106 [facility] Comment on above: Performed By: #### P T, PTT #### [facility] [address] [place] [address] Dr. Gasper Garber PROF 14(COMP METB)on 022 Albumin [Mass/Vol] 3.5 g/dL Normal 3.4-5.0 [facility] Comment on above: Performed By: #### A CETON #### [facility] [address] [place] [address] Dr. Gasper Garber Albumin/Globulin [Mass ratio] 1.0 {ratio} Normal [facility] Comment on above: Performed By: #### A CETON #### [facility] [address] [place] [address] Dr. Gasper Garber ALP [Catalytic activity/Vol] 81 U/L Normal 46-116 [facility] Comment on above: Performed By: #### A CETON #### [facility] [address] [place] [address] Dr. Gasper Garber ALT [Catalytic activity/Vol] 43 U/L Normal 14-59 [facility] Comment on above: Performed By: #### A CETON #### [facility] [address] [place] [address] Dr. Gasper Garber Anion gap [Moles/Vol] 13.6 mmol/L Normal [facility] Comment on above: Performed By: #### A CETON #### [facility] [address] [address] [address] Gasper Garber AST [Catalytic activity/Vol] 19 U/L Normal 15-37 [facility] Comment on above: Performed By: #### A CETON #### [facility] [address] [address] [address] Gasper Garber Bilirubin [Mass/Vol] 0.6 mg/dL Normal 0.2-1.0 [facility] Comment on above: Performed By: #### A CETON #### [facility] [address] [address] [address] Gasper Garber Calcium [Mass/Vol] 8.9 mg/dL Normal 8.5-10.1 [facility] Comment on above: Performed By: #### A CETON #### [facility] [address] [address] [address] Gasper Garber Chloride [Moles/Vol] 103 mmol/L Normal 98-107 [facility] Comment on above: Performed By: #### A CETON #### [facility] [address] [address] [address] Gasper Garber CO2 [Moles/Vol] 25.9 mmol/L Normal 21.0-32.0 [facility] Comment on above: Performed By: #### A CETON #### [facility] [address] [address] [address] Gasper Garber Creatinine [Mass/Vol] 2.91 mg/dL Critically high 0.55-1.02 [facility] Comment on above: Performed By: #### A CETON #### [facility] [address] [place] [address] Dr. Gasper Garber EGFR-AF EMIRATI 19 mL/min/1.73m2 Critically low >=60 [facility] Comment on above: Performed By: #### A CETON #### [facility] [address] [place] [address] Dr. Gasper Garber EGFR-NON AF EMIRATI 16 mL/min/1.73m2 Critically low >=60 [facility] Comment on above: Performed By: #### A CETON #### [facility] [address] [address] [address] Gasper Garber Globulin (S) [Mass/Vol] 3.5 g/dL Normal [facility] Comment on above: Performed By: #### A CETON #### [facility] [address] [address] [address] Gasper Garber Glucose [Mass/Vol] 201 mg/dL Critically high 74-[address] [facility] Comment on above: Performed By: #### A CETON #### [facility] [address] [place] [address] Dr. Gasper Garber Potassium [Moles/Vol] 3.5 mmol/L Normal 3.5-5.1 [facility] Comment on above: Performed By: #### A CETON #### [facility] [address] [address] [address] Gasper Garber Protein [Mass/Vol] 7.0 g/dL Normal 6.4-8.2 [facility] Comment on above: Performed By: #### A CETON #### [facility] [address] [place] [address] Dr. Gasper Garber Sodium [Moles/Vol] 139 mmol/L Normal 136-145 [facility] Comment on above: Performed By: #### A CETON #### [facility] [address] [address] [address] Gasper Garber Urea nitrogen [Mass/Vol] 46.0 mg/dL Critically high 7.0-18.0 [facility] Comment on above: Performed By: #### A CETON #### [facility] [address] [place] [address] Dr. Gasper Garber Urea nitrogen/Creatinine [Mass ratio] 15.8 mg/mg Normal [facility] Comment on above: Performed By: #### A CETON #### [facility] [address] [place] [address] Dr. Gasper Garber PROTIMEon 07-15-2021 INR Coag (PPP) [Relative time] 1.03 {INR} Normal [facility] Comment on above: Performed By: #### P T, PTT #### [facility] [address] [place] [address] Dr. Gasper Garber INR GUIDELINES SEE BELOW Normal [facility] Comment on above: Result Comment: JESUS RED INR: 2.0 - 3.0 CONDITIONS NOT LISTED BELOW 2.5 - 3.5 FOR PROSTHETIC HEART VALVE REPLACEMENT 2.5 - 3.5 RECURRENT THROMBOSIS Performed By: #### P T, PTT #### [facility] [address] [place] [address] Dr. Gasper Garber PT Coag (PPP) [Time] 11.1 s Normal 9.0-11.6 [facility] Comment on above: Performed By: #### P T, PTT #### [facility] [address] [place] [address] Dr. Gasper Garber PTTon 07-15-2021 aPTT Coag (Bld) [Time] 24.2 s Normal 22.3-36.2 [facility] Comment on above: Performed By: #### P T, PTT #### [facility] [address] [place] [address] Dr. Gasper Garber TROPONIN, HIGH SENSITIVITYon 07-15-2021 HSTROP 23.9 pg/mL Normal 4.0-51.3 [facility] Comment on above: Result Comment: CUT- OFF POINTS HAVE BEEN ESTABLISHED BASED ON THE FOURTH UNIVERSAL DEFINITIONS OF MYOCARDIAL INFARCTION. THE UPPER REFERENCE LIMIT (URL) OF TROPONIN, DEFINED THE 99TH PERCENTILE OF cTnI DISTRIBUTION IN A REFERENCE POPULATION, HAS BEEN CONFIRMED THE DECISION THRESHOLD FOR MS DIAGNOSIS. Performed By: #### L ACT #### [facility] [address] [place] [address] Dr. Gasper Garber TSHon 07-15-2021 TSH 3.864 uIU/mL Critically high 0.358-3.740 [facility] Comment on above: Performed By: #### A CETON #### [facility] [address] [place] [address] Dr. Gasper Garber TSH RANGE SEE BELOW Normal [facility] Comment on above: Result Comment: <0.3 4 UIU/ml HYPERTHYROID 0.34-5.60 UIU/ml EUTHYROID >5.60 UIU/ml HYPOTHYROID Performed By: #### A CETON #### [facility] [address] [place] [address] Dr. Gasper Garber URINE MICROSCOPIC ONLYon BACTERIA MODERATE Abnormal NONE SEEN [facility] Comment on above: Performed By: #### E MINR, UMICRO #### [facility] [address] [place] [address] Dr. Gasper Garber Bacteria identified Cx Nom (U) INDICATED Normal [facility] Comment on above: Performed By: #### E MINR, UMICRO #### [facility] [address] [place] [address] Dr. Gasper Garber CAST SEEN Abnormal NONE SEEN [facility] Comment on above: Performed By: #### Bernice HERNDON UMICRO #### [facility] [address] [place] [address] Dr. Gasper Garber Crystals LM Nom (Urine sed) NONE SEEN Normal NONE SEEN [facility] Comment on above: Performed By: #### Bernice HERNDON UMICRO #### [facility] [address] [place] [address] Dr. Gasper Garber Epithelial cells LM Ql (Urine sed) RARE Normal NONE SEEN /RARE [facility] Comment on above: Performed By: #### Bernice HERNDON UMICRO #### [facility] [address] [place] [address] Dr. Gasper Garber MUCOUS NONE SEEN Normal NONE SEEN [facility] Comment on above: Performed By: #### Bernice HERNDON, UMICRO #### [facility] [address] [place] [address] Dr. Gasper Garber RBC NONE SEEN Abnormal 0-2 [facility] Comment on above: Performed By: #### E RUCrystal, UMICRO #### [facility] [address] [place] [address] Dr. Gasper Garber WBC 2-5 Abnormal NONE SEEN [facility] Comment on above: Performed By: #### E BERNIE HERNDON #### [facility] [address] [address] [address] Gasper Garber XR chest 1V portableon 07-01 XR chest 1V portable [facility] [place] [address] [place] [address] XRay Report Signed Patient: Elif Turner MR#: [id number] : 1945 Acct:[id number] Age/Sex: 75 / F ADM Date: 06/24/21 Loc: Room: [address] [place] [address] Type: DIS IN Attending Dr: Rusty Amor [...] Valle Jr., M.D.07/01/2021 9:08 AM Dictation Location: [address] [place] [address] Transcribed By: [facility] 07/01/21907 Dictated By: Adarsh Valle Jr, MD 07/01/21906 Signed By: 07/01/21 09 Normal [facility] Activated partial thrombopla stin time (aPTT) in platelet poor plasma by coagulation aOrdered By: Marlon Leon on 06-25-2021 aPTT Coag (PPP) [Time] 24.8 s 25.1-36.5 [facility] Basophils Auto (Bld) [#/Vol] Ordered By: Marlon Leon on 06-25-2021 Basophils (Bld) [#/Vol] 0.0 10*3/uL 0.0-0.2 [facility] Basophils/100 WBC Auto (Bld) Ordered By: Marlon Leon on 06-25-2021 Basophils/100 WBC (Bld) 0.3 % [facility] Blood hemoglobin measurement (mass/volume)Ordered By: Marlon Leon on 06-25-2021 Hemoglobin (Bld) [Mass/Vol] 11.1 g/dL 11.8-15.4 [facility] Blood leukocytes automated c ount (number/volume)Ordered By: Marlon Leon on 06-25-2021 WBC (Bld) [#/Vol] 10.5 10*3/uL 4.5-11.0 [facility] Complete Blood Count Auto Di ffon 06-25-2021 Basophils (Bld) [#/Vol] 0.0 10*3/uL Normal 0.0-0.2 [facility] Comment on above: Result Comment: PERF ORMED BY: [facility] [address] [place] [address] PATHOLOGIST VENEER PATCHER NARGIS CLEMENS M.D. Performed By: #### G LULS #### Point of Care testing , Basophils/100 WBC (Bld) 0.3 % Normal . [facility] Comment on above: Performed By: #### G LULS #### Point of Care testing , Eosinophils (Bld) [#/Vol] 0.0 10*3/uL Normal 0.0-0.45 [facility] Comment on above: Performed By: #### G LULS #### Point of Care testing , Eosinophils/100 WBC (Bld) 0.0 % Normal . [facility] Comment on above: Performed By: #### G LULS #### Point of Care testing , Erythrocyte distribution width (RBC) [Ratio] 12.7 % Normal 11.9-15.3 [facility] Comment on above: Performed By: #### G LULS #### Point of Care testing , Hematocrit (Bld) [Volume fraction] 32.7 % Low 34.0-46.4 [facility] Comment on above: Performed By: #### G LULS #### Point of Care testing , Hemoglobin (Bld) [Mass/Vol] 11.1 g/dL Low 11.8-15.4 [facility] Comment on above: Performed By: #### G LULS #### Point of Care testing , Lymphocytes (Bld) [#/Vol] 0.4 10*3/uL Low 1.00-4.8 [facility] Comment on above: Performed By: #### G LULS #### Point of Care testing , Lymphocytes/100 WBC (Bld) 4.3 % Normal . [facility] Comment on above: Performed By: #### G LULS #### Point of Care testing , MCH (RBC) [Entitic mass] 31.3 pg Normal 24.7-34.3 [facility] Comment on above: Performed By: #### G ROLANDOLS #### Point of Care testing , MCV (RBC) [Entitic vol] 92.1 fL Normal 80-100 [facility] Comment on above: Performed By: #### G LULS #### Point of Care testing , Mean Corpuscular HGB Conc 34.0 g/dL Normal 32.0-35.0 [facility] Comment on above: Performed By: #### G ROLANDOLS #### Point of Care testing , Monocytes (Bld) [#/Vol] 0.5 10*3/uL Normal 0.0-0.8 [facility] Comment on above: Performed By: #### G LULS #### Point of Care testing , Monocytes/100 WBC (Bld) 4.5 % Normal . [facility] Comment on above: Performed By: #### G ROLANDOLS #### Point of Care testing , Neutrophils (Bld) [#/Vol] 9.6 10*3/uL High 1.8-7.7 [facility] Comment on above: Performed By: #### G LULS #### Point of Care testing , Neutrophils/100 WBC (Bld) 90.9 % Normal . [facility] Comment on above: Performed By: #### G SHANNAN #### Point of Care testing , Nucleated RBC/100 WBC (Bld) [Ratio] 0.0 % Normal 0-0.5 [facility] Comment on above: Performed By: #### G ROLANDOLS #### Point of Care testing , Platelet mean volume (Bld) [Entitic vol] 9.0 fL Normal 6.3-10.7 [facility] Comment on above: Performed By: #### G LULS #### Point of Care testing , Platelets (Bld) [#/Vol] 205 10*3/uL Normal 150-450 [facility] Comment on above: Performed By: #### G SHANNAN #### Point of Care testing , RBC (Bld) [#/Vol] 3.55 10*6/uL Low 3.60-5.00 [facility] Comment on above: Performed By: #### G SHANNAN #### Point of Care testing , WBC (Bld) [#/Vol] 10.5 10*3/uL Normal 4.5-11.0 [facility] Comment on above: Performed By: #### G SHANNAN #### Point of Care testing , ECG 12 lead ECGon 06-25-2021 ECG 12 lead ECG [facility] [place] [address] Electrocardiograph Report Signed Patient: Elif Turner MR#: [id number] : 1945 Acct:[id number] Age/Sex: 75 / F ADM Date: 06/24/21 Loc: Room: [address] [place] [address] Type: DIS IN Attending Dr: Rusty Amor [...] atrial complexes are now present Confirmed by SNAG BARRIOS [facility], WIL ([id number]) on 06/25/2021 11:01:31 AM Referred By: Electronically Signed By:WIL DOMÍNGUEZ MD [facility] Transcribed By: MUS Signed By Wil Domínguez MD, [facility] 06/25/21 1101 Normal [facility] Eosinophils Auto (Bld) [#/Vo l]Ordered By: Marlon Leon on 06-25-2021 Eosinophils (Bld) [#/Vol] 0.0 10*3/uL 0.0-0.45 [facility] Eosinophils/100 WBC Auto (Bl d)Ordered By: Marlon Leon on 06-25-2021 Eosinophils/100 WBC (Bld) 0.0 % [facility] Erythrocyte distribution wid th Auto (RBC) [Ratio]Ordered By: Marlon Leon on 06-25-2021 Erythrocyte distribution width (RBC) [Ratio] 12.7 % 11.9-15.3 [facility] Glucose Glucometer (BldC) [M ass/Vol]Ordered By: Rusty Amor on 06-25-2021 Glucose [Mass/Vol] 227 mg/dL [facility] Comment on above: Random Glucose Refer ence Range is dependent on time and content of last meal. Glucose of more than 200 mg/dL in a nonstressed, ambulatory subject supports the diagnosis of Diabetes Mellitus. Glucose Poct Glucometerson 0 06-25-2021 Glucose [Mass/Vol] 227 mg/dL Normal [facility] Comment on above: Result Comment: [place] Glucose Reference Range is dependent on time and content of last meal. Glucose of more than 200 mg/dL in a nonstressed, ambulatory subject supports the diagnosis of Diabetes Mellitus. PERFORMED BY: [place] [address] PATHOLOGIST VENEER PATCHER NARGIS CLEMENS M.D. Performed By: #### P TT #### [address] Glucose [Mass/Vol] 184 mg/dL Normal [facility] Comment on above: Result Comment: [place] Glucose Reference Range is dependent on time and content of last meal. Glucose of more than 200 mg/dL in a nonstressed, ambulatory subject supports the diagnosis of Diabetes Mellitus. PERFORMED BY: [place] [address] PATHOLOGIST VENEER PATCHER NARGIS CLEMENS M.D. Performed By: #### P TT #### [address] Glucose [Mass/Vol] 294 mg/dL Normal [facility] Comment on above: Result Comment: [facility] Glucose Reference Range is dependent on time and content of last meal. Glucose of more than 200 mg/dL in a nonstressed, ambulatory subject supports the diagnosis of Diabetes Mellitus. PERFORMED BY: [place] [address] PATHOLOGIST VENEER PATCHER NARGIS CLEMENS M.D. Performed By: #### G LULS #### Point of Care testing , Hematocrit Auto (Bld) [Volum e fraction]Ordered By: Marlon Leon on 06-25-2021 Hematocrit (Bld) [Volume fraction] 32.7 % 34.0-46.4 [facility] Laboratory - CoagulationOrde red By: Marlon Leon on 06-25-2021 PT Coag (PPP) [Time] 11.5 s 9.0-12.9 [facility] Laboratory - Hematology and Cell countsOrdered By: Marlon Leon on 06-25-2021 Nucleated RBC/100 WBC (Bld) [Ratio] 0.0 % 0-0.5 [facility] Lymphocytes Auto (Bld) [#/Vo l]Ordered By: Marlon Leon on 06-25-2021 Lymphocytes (Bld) [#/Vol] 0.4 10*3/uL 1.00-4.8 [facility] Lymphocytes/100 WBC Auto (Bl d)Ordered By: Marlon Leon on 06-25-2021 Lymphocytes/100 WBC (Bld) 4.3 % [facility] MCH Auto (RBC) [Entitic mass ]Ordered By: Marlon Leon on 06-25-2021 MCH (RBC) [Entitic mass] 31.3 pg 24.7-34.3 [facility] MCHC Auto (RBC) [Mass/Vol]Or dered By: Marlon Leon on 06-25-2021 MCHC (RBC) [Mass/Vol] 34.0 g/dL 32.0-35.0 [facility] MCV Auto (RBC) [Entitic vol] Ordered By: Marlon Leon on 06-25-2021 MCV (RBC) [Entitic vol] 92.1 fL 80-100 [facility] Monocytes Auto (Bld) [#/Vol] Ordered By: Marlon Leon on 06-25-2021 Monocytes (Bld) [#/Vol] 0.5 10*3/uL 0.0-0.8 [facility] Monocytes/100 WBC Auto (Bld) Ordered By: Marlon Leon on 06-25-2021 Monocytes/100 WBC (Bld) 4.5 % [facility] Neutrophils Auto (Bld) [#/Vo l]Ordered By: Marlon Leon on 06-25-2021 Neutrophils (Bld) [#/Vol] 9.6 10*3/uL 1.8-7.7 [facility] Neutrophils/100 WBC Auto (Bl d)Ordered By: Marlon Leon on 06-25-2021 Neutrophils/100 WBC (Bld) 90.9 % [facility] Partial Thromboplastin Timeo n 06-25-2021 aPTT Coag (Bld) [Time] 24.8 s Low 25.1-36.5 [facility] Comment on above: Result Comment: PERF ORMED BY: [facility] [address] [place] [address] PATHOLOGIST VENEER PATCHER NARGIS CLEMENS M.D. Performed By: #### G SHANNAN #### Point of Care testing , Platelet mean volume Auto (B ld) [Entitic vol]Ordered By: Marlon Leon on 06-25-2021 Platelet mean volume (Bld) [Entitic vol] 9.0 fL 6.3-10.7 [facility] Platelet poor plasma interna tional normalized ratio (INR) by coagulation assay (relatOrdered By: Marlon Leon on 06-25-2021 INR Coag (PPP) [Relative time] 1.0 {INR} [facility] Comment on above: INR Therapeutic Rang e [...] 06-25-2021 Platelets (Bld) [#/Vol] 205 10*3/uL 150-450 [facility] Progress Noteson 06-25-2021 Superintendent Measurement Authentication Interface Message Text EMERGENCY TRIAGE, TREAT AND TRANSPORT (ET3) DOCUMENTATION OF TELEHEALTH VISIT Date / Time: 06/23/20211929 Name: Elif Turner : 1945 SSN: (Not on file) EMS Agency: [facility] [x] Verbal consent obtained [] Implied [...] Completed by: Andreas Freitas MD Normal [facility] Prothrombin Time INRon 06-25 INR Coag (PPP) [Relative time] 1.0 {INR} Normal [facility] Comment on above: Result Comment: INR Therapeutic [...] Coag (PPP) [Time] 11.5 s Normal 9.0-12.9 [facility] Comment on above: Performed By: #### G LULS #### Point of Care testing , RBC Auto (Bld) [#/Vol]Ordere d By: Marlon Leon on 06-25-2021 RBC (Bld) [#/Vol] 3.55 10*6/uL 3.60-5.00 [facility] Troponin I High Sensitivityo n 06-25-2021 Troponin I High Sensitivity 735 pg/mL Off scale high 0-15 [facility] Comment on above: Result Comment: Crit ical value result called at 0638 on 06/25/21 PERFORMED BY: [facility] [address] [place] [address] PATHOLOGIST VENEER PATCHER NARGIS CLEMENS M.D. Performed By: #### P TT #### [facility] [address] [place] [id number] [facility] Troponin I.cardiac [Mass/vol ume] in Serum or Plasma by High sensitivity methodOrdered By: Gen Bolivar on 06-25-2021 Troponin I.cardiac High sensitivity method [Mass/Vol] 735 pg/mL 0-15 [facility] Comment on above: Critical value result called at 0638 on 06/25/21 A1C with Estimated Average Chitra pang 06-24-2021 Glucose [Mass/Vol] 160 mg/dL Normal [facility] Comment on above: Result Comment: PERF ORMED BY: [facility] [address] [facility] [place] [address] PATHOLOGIST VENEER PATCHER NARGIS CLEMENS M.D. Performed By: #### G LULS #### Point of Care testing , HbA1c (Bld) [Mass fraction] 7.2 % High 4.3-5.6 [facility] Comment on above: Result Comment: Incr eased risk for diabetes: 5.7 - 6.4 diabetes: >6.4 glycemic control for adults with diabetes: <7.0 Performed By: #### G LULS #### Point of Care testing , Albumin [Mass/volume] in Ser um or PlasmaOrdered By: Marlon Leon on 06-24-2021 Albumin [Mass/Vol] 3.1 g/dL 3.2-5.5 [facility] Cholesterol [Mass/volume] in Serum or PlasmaOrdered By: Marlon Leon on 06-24-2021 Cholesterol [Mass/Vol] 128 mg/dL 140-200 [facility] Comment on above: Chol less than 200 m g/dl low risk Chol 201-239 mg/dl borderline risk Chol 240 mg/dl and greater high risk Cholesterol in LDL Calc [Mas s/Vol]Ordered By: Marlon Leon on 06-24-2021 Cholesterol in LDL [Mass/Vol] 56 mg/dL 0-100 [facility] Comment on above: LDL ATP III CLASSIFI CATION LDL less than 100 mg/dL Optimal LDL 100-129 mg/dL Near or above optimal LDL 130-159 mg/dL Borderline high LDL 160-189 mg/dL High LDL greater than 189 mg/dL Very high Cholesterol in VLDL Calc [Ma ss/Vol]Ordered By: Marlon Leon on 06-24-2021 Cholesterol in VLDL [Mass/Vol] 13 mg/dL [facility] Complete Blood Count Auto Di ffon 06-24-2021 Basophils (Bld) [#/Vol] 0.1 10*3/uL Normal 0.0-0.2 [facility] Comment on above: Result Comment: PERF ORMED BY: [place] [address] PATHOLOGIST VENEER PATCHER NARGIS CLEMENS M.D. Performed By: #### P TT #### [address] Basophils/100 WBC (Bld) 0.8 % Normal . [facility] Comment on above: Performed By: #### P TT #### [address] Eosinophils (Bld) [#/Vol] 0.2 10*3/uL Normal 0.0-0.45 [facility] Comment on above: Performed By: #### P TT #### [address] Eosinophils/100 WBC (Bld) 3.2 % Normal . [facility] Comment on above: Performed By: #### P TT #### [address] Erythrocyte distribution width (RBC) [Ratio] 12.7 % Normal 11.9-15.3 [facility] Comment on above: Performed By: #### P TT #### [address] Hematocrit (Bld) [Volume fraction] 30.5 % Low 34.0-46.4 [facility] Comment on above: Performed By: #### P TT #### [address] Hemoglobin (Bld) [Mass/Vol] 10.4 g/dL Low 11.8-15.4 [facility] Comment on above: Performed By: #### P TT #### [address] Lymphocytes (Bld) [#/Vol] 1.8 10*3/uL Normal 1.00-4.8 [facility] Comment on above: Performed By: #### P TT #### [address] Lymphocytes/100 WBC (Bld) 27.4 % Normal . [facility] Comment on above: Performed By: #### P TT #### [address] MCH (RBC) [Entitic mass] 31.3 pg Normal 24.7-34.3 [facility] Comment on above: Performed By: #### P TT #### [address] MCV (RBC) [Entitic vol] 92.0 fL Normal 80-100 [facility] Comment on above: Performed By: #### P TT #### [address] Mean Corpuscular HGB Conc 34.1 g/dL Normal 32.0-35.0 [facility] Comment on above: Performed By: #### P TT #### [address] Monocytes (Bld) [#/Vol] 0.6 10*3/uL Normal 0.0-0.8 [facility] Comment on above: Performed By: #### P TT #### [address] Monocytes/100 WBC (Bld) 8.9 % Normal . [facility] Comment on above: Performed By: #### P TT #### [place] [address] [place] Neutrophils (Bld) [#/Vol] 3.8 10*3/uL Normal 1.8-7.7 [facility] Comment on above: Performed By: #### P TT #### [place] [address] [place] Neutrophils/100 WBC (Bld) 59.7 % Normal . [facility] Comment on above: Performed By: #### P TT #### [address] Nucleated RBC/100 WBC (Bld) [Ratio] 0.0 % Normal 0-0.5 [facility] Comment on above: Performed By: #### P TT #### [address] Platelet mean volume (Bld) [Entitic vol] 8.4 fL Normal 6.3-10.7 [facility] Comment on above: Performed By: #### P TT #### [address] Platelets (Bld) [#/Vol] 191 10*3/uL Normal 150-450 [facility] Comment on above: Performed By: #### P TT #### [address] RBC (Bld) [#/Vol] 3.31 10*6/uL Low 3.60-5.00 [facility] Comment on above: Performed By: #### P TT #### [address] WBC (Bld) [#/Vol] 6.4 10*3/uL Normal 4.5-11.0 [facility] Comment on above: Performed By: #### P TT #### [address] Comprehensive Metabolic Pane hailey 06-24-2021 Albumin [Mass/Vol] 3.1 g/dL Low 3.2-5.5 [facility] Comment on above: Performed By: #### H S TROP, PT, PTT, CMP, PHOS, MG, LIPID #### [address] Albumin/Globulin [Mass ratio] 1.2 {ratio} Normal [facility] Comment on above: Performed By: #### H S TROP, PT, PTT, CMP, PHOS, MG, LIPID #### [facility] [address] [place] [address] ALP [Catalytic activity/Vol] 57 U/L Normal 32-92 [facility] Comment on above: Performed By: #### H S TROP, PT, PTT, CMP, PHOS, MG, LIPID #### [address] ALT [Catalytic activity/Vol] 25 U/L Normal 10-60 [facility] Comment on above: Performed By: #### H S TROP, PT, PTT, CMP, PHOS, MG, LIPID #### [facility] [address] [place] [address] AST [Catalytic activity/Vol] 20 U/L Normal 10-42 [facility] Comment on above: Performed By: #### H S TROP, PT, PTT, CMP, PHOS, MG, LIPID #### [facility] [address] [place] [address] Bilirubin [Mass/Vol] 0.5 mg/dL Normal 0.3-1.2 [facility] Comment on above: Performed By: #### H S TROP, PT, PTT, CMP, PHOS, MG, LIPID #### [address] Calcium [Mass/Vol] 9.1 mg/dL Normal 8.2-10.2 [facility] Comment on above: Performed By: #### H S TROP, PT, PTT, CMP, PHOS, MG, LIPID #### [facility] [address] [place] [address] Chloride [Moles/Vol] 108 mmol/L Normal 95-114 [facility] Comment on above: Performed By: #### H S TROP, PT, PTT, CMP, PHOS, MG, LIPID #### [address] CO2 [Moles/Vol] 25.1 mmol/L Normal 22.0-30.0 [facility] Comment on above: Performed By: #### H S TROP, PT, PTT, CMP, PHOS, MG, LIPID #### [address] [place] [address] [place] Creatinine [Mass/Vol] 1.64 mg/dL High 0.44-1.03 [facility] Comment on above: Performed By: #### H S TROP, PT, PTT, CMP, PHOS, MG, LIPID #### [facility] [address] Creatinine Clr Calc Pharmacy 33.62 [place] Comment on above: Performed By: #### H S TROP, PT, PTT, CMP, PHOS, MG, LIPID #### [facility] [address] Estimated GFR ( Cathryn 37 [place] Comment on above: Result Comment: GFR estimated reference range: According to KDOQI guidelines, <60 ml/min/1.73m2 is sufficient to diagnose a patient with chronic kidney disease. Performed By: #### H S TROP, PT, PTT, CMP, PHOS, MG, LIPID #### [address] Estimated GFR (Non- Am 31 [place] Comment on above: Performed By: #### H S TROP, PT, PTT, CMP, PHOS, MG, LIPID #### [address] Globulin (S) [Mass/Vol] 2.6 g/dL [place] Comment on above: Performed By: #### H S TROP, PT, PTT, CMP, PHOS, MG, LIPID #### [address] Glucose [Mass/Vol] 65 mg/dL Low 70-100 [facility] Comment on above: Result Comment: [place] Glucose Reference Range is dependent on time and content of last meal. Glucose of more than 200 mg/dL in a nonstressed, ambulatory subject supports the diagnosis of Diabetes Mellitus. ADA recommended reference range Performed By: #### H S TROP, PT, PTT, CMP, PHOS, MG, LIPID #### [address] Potassium [Moles/Vol] 4.1 mmol/L Normal 3.5-5.1 [facility] Comment on above: Performed By: #### H S TROP, PT, PTT, CMP, PHOS, MG, LIPID #### [facility] [address] Protein [Mass/Vol] 5.7 g/dL Low 6.1-7.9 [facility] Comment on above: Performed By: #### H S TROP, PT, PTT, CMP, PHOS, MG, LIPID #### [facility] [address] Sodium [Moles/Vol] 140 mmol/L Normal 136-146 [facility] Comment on above: Performed By: #### H S TROP, PT, PTT, CMP, PHOS, MG, LIPID #### [facility] [address] Urea nitrogen [Mass/Vol] 27 mg/dL High 9-23 [facility] Comment on above: Performed By: #### H S TROP, PT, PTT, CMP, PHOS, MG, LIPID #### [facility] [address] [place] [address] [place] Creatinine and Glomerular fi ltration rate.predicted panel (S/P/Bld)Ordered By: Marlon Leon on 06-24-2021 Creatinine [Mass/Vol] 1.64 mg/dL 0.44-1.03 [facility] ECG 12 lead ECGon 06-24-2021 ECG 12 lead ECG [facility] [place] [address] Electrocardiograph Report Signed Patient: Elif Turner MR#: [id number] : 1945 Acct:[id number] Age/Sex: 75 / F ADM Date: 06/24/21 Loc: Room: [address] [place] [address] Type: DIS IN Attending Dr: Rusty Amor [...] Referred By: Electronically Signed By:WIL DOMÍNGUEZ MD [facility] Transcribed By: MUS Signed By Wil Domínguez MD, FACC 06/25/21 1101 [place] ECG 12 lead ECG [place] [id number] Electrocardiograph Report Signed Patient: Elif Turner MR#: [id number] : 1945 Acct:[id number] Age/Sex: 75 / F ADM Date: 06/24/21 Loc: Room: [address] [place] [address] Type: DIS IN Attending Dr: Rusty Amor [...] By Wil Domínguez MD, FACC 06/24/21 1001 [place] ECH echo transthoracicon ECH echo transthoracic [facility] Main [address] [address] Echocardiogram Signed Patient: Elif Turner MR#: [id number] : 1945 Acct:[id number] Age/Sex: 75 / F ADM Date: 06/24/21 Loc: 4 Room: [address] [place] [address] Type: DIS IN Attending Dr: Rusty Amor MD Ordering Provider: Marlon Leon DO, RES Date of Service: 06/24/2108/10/602 ECH/ECH echo transthoracic: NSTEMI Copies to: Marlon Leon DO, RES Wil Domínguez MD, [facility] A : 1945 Gender: Female (MM/DD/YYYY) [...] Frazier. : : MD SANG, : : [facility] : : : : on: 06/24/2021, 11:11 : : AM : : : Transcribed By: SCAnita Performed At: 06/24/21 0944 Signed By: Wil Domínguez MD, [facility] 06/24/21 1111 Normal [facility] Estimated glomerular filtrat ion rate (GFR) non- AmericanOrdered By: Marlon Leon on 06-24-2021 GFR/1.73 sq M.predicted among non-blacks MDRD (S/P/Bld) [Vol rate/Area] 31 mL/Min [facility] Globulin Calc (S) [Mass/Vol] Ordered By: Marlon Leon on 06-24-2021 Globulin (S) [Mass/Vol] 2.6 g/dL [facility] Glucose Poct Glucometerson 0 06-24-2021 Glucose [Mass/Vol] 322 mg/dL Normal [facility] Comment on above: Result Comment: [place] Glucose Reference Range is dependent on time and content of last meal. Glucose of more than 200 mg/dL in a nonstressed, ambulatory subject supports the diagnosis of Diabetes Mellitus. PERFORMED BY: [place] [address] PATHOLOGIST VENEER PATCHER NARGIS CLEMENS M.D. Performed By: #### G LULS #### Point of Care testing , Commemt1 Glu2: Cleaned Meter Normal [facility] Comment on above: Result Comment: PERF ORMED BY: [facility] [address] [facility] [address] PATHOLOGIST VENEER PATCHER NARGIS CLEMENS M.D. Performed By: #### G LULS #### Point of Care testing , Glucose [Mass/Vol] 87 mg/dL Normal [facility] Comment on above: Result Comment: [place] om Glucose Reference Range is dependent on time and content of last meal. Glucose of more than 200 mg/dL in a nonstressed, ambulatory subject supports the diagnosis of Diabetes Mellitus. Performed By: #### G LULS #### Point of Care testing , Glucose [Mass/Vol] 139 mg/dL Normal [facility] Comment on above: Result Comment: [facility] Glucose Reference Range is dependent on time and content of last meal. Glucose of more than 200 mg/dL in a nonstressed, ambulatory subject supports the diagnosis of Diabetes Mellitus. PERFORMED BY: [place] [address] PATHOLOGIST VENEER PATCHER NARGIS CLEMENS M.D. Performed By: #### P TT #### [facility] [address] [place] [address] Glucose mean value [Mass/vol ume] in Blood Estimated from glycated hemoglobinOrdered By: Marlon Leon on 06-24-2021 Average glucose Estimated from glycated hemoglobin (Bld) [Mass/Vol] 160 mg/dL [facility] Hemoglobin A1c percentageOrd ered By: Marlon Leon on 06-24-2021 HbA1c (Bld) [Mass fraction] 7.2 % 4.3-5.6 [facility] Comment on above: Increased risk for d iabetes: 5.7 - 6.4 diabetes: >6.4 glycemic control for adults with diabetes: <7.0 Laboratory - Chemistry and C hemistry - challengeOrdered By: Marlon Leon on 06-24-2021 Magnesium [Mass/Vol] 2.4 mg/dL 1.6-2.6 [facility] Lipid Panelon 06-24-2021 Cholesterol [Mass/Vol] 128 mg/dL Low 140-200 [facility] Comment on above: Result Comment: Chol less than 200 mg/dl low risk Chol 201-239 mg/dl borderline risk Chol 240 mg/dl and greater high risk Performed By: #### H S TROP, PT, PTT, CMP, PHOS, MG, LIPID #### [facility] [address] [place] [address] Cholesterol in HDL [Mass/Vol] 58 mg/dL Normal 35-85 [facility] Comment on above: Result Comment: HDL CHOL ATP-III CLASSIFICATION Cardiovascular Risk HDL > or equal to 60 mg/dL LOW HDL < 40 mg/dL HIGH Performed By: #### H S TROP, PT, PTT, CMP, PHOS, MG, LIPID #### [facility] [address] Cholesterol.total/Ch olesterol in HDL [Mass ratio] 2.2 {ratio} Normal <5.0 [facility] Comment on above: Result Comment: PERF ORMED BY: [facility] [address] [place] [address] PATHOLOGIST VENEER PATCHER NARGIS CLEMENS M.D. Performed By: #### H S TROP, PT, PTT, CMP, PHOS, MG, LIPID #### [facility] [address] LDL Cholesterol,Calculat ed 56 mg/dL Normal 0-100 [facility] Comment on above: Result Comment: LDL ATP III CLASSIFICATION LDL less than 100 mg/dL Optimal LDL 100-129 mg/dL Near or above optimal LDL 130-159 mg/dL Borderline high LDL 160-189 mg/dL High LDL greater than 189 mg/dL Very high Performed By: #### H S TROP, PT, PTT, CMP, PHOS, MG, LIPID #### [facility] [address] Triglyceride w/Reflex 69 mg/dL Normal 35-149 [facility] Comment on above: Result Comment: TRIG ATP III CLASSIFICATION TRIG less than 150 mg/dL Normal TRIG 150-199 mg/dL Borderline high TRIG 200-500 mg/dL High TRIG greater than 500 mg/dL Very high Standard traceable to the Center for Disease Conrtrol and Prevention (CDC) test method. Performed By: #### H S TROP, PT, PTT, CMP, PHOS, MG, LIPID #### [facility] [address] VLDL CHOLESTEROL 13 mg/dL Normal [facility] Comment on above: Performed By: #### H S TROP, PT, PTT, CMP, PHOS, MG, LIPID #### [facility] [address] Magnesiumon 06-24-2021 Magnesium [Mass/Vol] 2.4 mg/dL Normal 1.6-2.6 [facility] Comment on above: Performed By: #### H S TROP, PT, PTT, CMP, PHOS, MG, LIPID #### [facility] [address] No Panel InformationOrdered By: Rusty Amor on 06-24-2021 Bedside Glucose Comment Glu2: cleaned meter [facility] No Panel InformationOrdered By: Marlon Leon on 06-24-2021 Estimated GFR () 37 mL/Min [facility] Comment on above: GFR estimated refere nce range: According to KDOQI guidelines, <60 ml/min/1.73m2 is sufficient to diagnose a patient with chronic kidney disease. Pharmacy Creatinine Clearance (Chem 33.62 [facility] Partial Thromboplastin Timeo n 06-24-2021 aPTT Coag (Bld) [Time] 43.4 s High 25.1-36.5 [facility] Comment on above: Order Comment: draw both at 11:35 with per Shahnaz martin Result Comment: PERF ORMED BY: [place] [address] PATHOLOGIST VENEER PATCHER NARGIS CLEMENS M.D. Performed By: #### P TT #### [address] aPTT Coag (Bld) [Time] 35.4 s Normal 25.1-36.5 [facility] Comment on above: Result Comment: PERF ORMED BY: [place] [address] PATHOLOGIST VENEER PATCHER NARGIS CLEMENS M.D. Performed By: #### H S TROP, PT, PTT, CMP, PHOS, MG, LIPID #### [facility] [address] [place] [address] Phosphate [Mass/volume] in S sybil or PlasmaOrdered By: Marlon Leon on 06-24-2021 Phosphate [Mass/Vol] 3.5 mg/dL 2.5-4.6 [facility] Phosphoruson 06-24-2021 Phosphate [Mass/Vol] 3.5 mg/dL Normal 2.5-4.6 [facility] Comment on above: Performed By: #### H S TROP, PT, PTT, CMP, PHOS, MG, LIPID #### [facility] [address] Protein [Mass/volume] in Ser um or PlasmaOrdered By: Marlon Leon on 06-24-2021 Protein [Mass/Vol] 5.7 g/dL 6.1-7.9 [facility] Prothrombin Time INRon 06-24 INR Coag (PPP) [Relative time] 1.0 {INR} Normal [facility] Comment on above: Result Comment: INR Therapeutic [...] PT, PTT, CMP, PHOS, MG, LIPID #### [facility] [address] PT Coag (PPP) [Time] 11.7 s Normal 9.0-12.9 [facility] Comment on above: Performed By: #### H S TROP, PT, PTT, CMP, PHOS, MG, LIPID #### [facility] [address] Serum or plasma alanine liu otransferase measurement without P-5'-P (enzymatic activiOrdered By: Marlon Leon on 06-24-2021 ALT No additional P-5'-P [Catalytic activity/Vol] 25 U/L 10-60 [facility] Serum or plasma albumin/glob ulin mass ratioOrdered By: Marlon Leon on 06-24-2021 Albumin/Globulin [Mass ratio] 1.2 {ratio} [facility] Serum or plasma alkaline carrie sphatase measurement (enzymatic activity/volume)Ordered By: Marlon Leon on 06-24-2021 ALP [Catalytic activity/Vol] 57 U/L 32-92 [facility] Serum or plasma aspartate am inotransferase measurement (enzymatic activity/volume)Ordered By: Marlon Leon on 06-24-2021 AST [Catalytic activity/Vol] 20 U/L 10-42 [facility] Serum or plasma calcium varsha urement (mass/volume)Ordered By: Marlon Leon on 06-24-2021 Calcium [Mass/Vol] 9.1 mg/dL 8.2-10.2 [facility] Serum or plasma chloride viktoriya surement (moles/volume)Ordered By: Marlon Leon on 06-24-2021 Chloride [Moles/Vol] 108 mmol/L 95-114 [facility] Serum or plasma glucose varsha urement (mass/volume)Ordered By: Marlon Leon on 06-24-2021 Glucose [Mass/Vol] 65 mg/dL 70-100 [facility] Comment on above: ADA recommended refe rence range Random Glucose Reference Range is dependent on time and content of last meal. Glucose of more than 200 mg/dL in a nonstressed, ambulatory subject supports the diagnosis of Diabetes Mellitus. Serum or plasma high density lipoprotein (HDL) cholesterol measurementOrdered By: Marlon Leon on 06-24-2021 Cholesterol in HDL [Mass/Vol] 58 mg/dL 35-85 [facility] Comment on above: HDL CHOL ATP-III CLA SSIFICATION Cardiovascular Risk HDL > or equal to 60 mg/dL LOW HDL < 40 mg/dL HIGH Serum or plasma potassium me asurement (moles/volume)Ordered By: Marlon Leon on 06-24-2021 Potassium [Moles/Vol] 4.1 mmol/L 3.5-5.1 [facility] Serum or plasma sodium measu rement (moles/volume)Ordered By: Marlon Leon on 06-24-2021 Sodium [Moles/Vol] 140 mmol/L 136-146 [facility] Serum or plasma total biliru bin measurement (mass/volume)Ordered By: Marlon Leon on 06-24-2021 Bilirubin [Mass/Vol] 0.5 mg/dL 0.3-1.2 [facility] Serum or plasma total carbon dioxide measurement (moles/volume)Ordered By: Marlon Leon on 06-24-2021 CO2 [Moles/Vol] 25.1 mmol/L 22.0-30.0 [facility] Serum or plasma total choles terol/high density lipoprotein (HDL) cholesterol mass ratOrdered By: Marlon Leon on 06-24-2021 Cholesterol.total/Ch olesterol in HDL [Mass ratio] 2.2 {ratio} [facility] Serum or plasma urea nitroge n measurement (mass/volume)Ordered By: Marlon Leon on 06-24-2021 Urea nitrogen [Mass/Vol] 27 mg/dL 9- [facility] Triglyceride [Mass/volume] i n Serum or PlasmaOrdered By: Marlon Leon on 06-24-2021 Triglyceride [Mass/Vol] 69 mg/dL 35-149 [facility] Comment on above: TRIG ATP III CLASSIF ICATION TRIG less than 150 mg/dL Normal TRIG 150-199 mg/dL Borderline high TRIG 200-500 mg/dL High TRIG greater than 500 mg/dL Very high Standard traceable to the Center for Disease Conrtrol and Prevention (CDC) test method. Troponin I High Sensitivityo n 06-24-2021 Troponin I High Sensitivity 879 pg/mL Off scale high 0-15 [facility] Comment on above: Order Comment: draw both at 11:35 with per Shahnaz martin Result Comment: Crit ical value result called at 1246 on 06/24/21 PERFORMED BY: [place] [address] PATHOLOGIST VENEER PATCHER NARGIS CLEMENS M.D. Performed By: #### G LULS #### Point of Care testing , Troponin I High Sensitivity 1098 pg/mL Off scale high 0-15 [facility] Comment on above: Result Comment: Resu lts called at 0635 on 06/24/21 PERFORMED BY: [place] [address] PATHOLOGIST VENEER PATCHER NARGIS CLEMENS M.D. Performed By: #### H S TROP, PT, PTT, CMP, PHOS, MG, LIPID #### [address] Auth for Release of Medical Recordson 03-01-2021 Auth for Release of Medical Records [id number]#1.00CD:127 Normal [facility] Reminderson 02-16-2021 Reminders - From: Elsa Erickson LPN To: [facility] - Clinical; Sent: 02/16/2021 08:31:52 EST Show up: 01/10/2026 08:00:00 EST Subject: colonoscopy recall Due Date/Time: 02/09/2026 08:00:00 EST Reminder/Recall Patient is due for colonoscopy 02/09/2026 due to history of tubular adenoma. Normal [facility] Ambulatory Clinical Summaryo n 02-15-2021 Ambulatory Clinical Summary {[id number]}CD:61 4368 Normal [facility] General Surgery Office/Clini c Noteon 02-15-2021 General Surgery Office/Clinic Note CD:[id number] KdcszPsg4hwap4uFA3mSqTqkmPs EMyfXq9ew8tvNP52ou5jUwSoSp9 +FeztCQ6YDUsJTIVs dQ8bOHVYUliGPbHqVC7aTcKBKe9 VIZXsPJwSMOxjNV0yCEI4pfutbL 1yKU6hKNOeyQYfEm6nj4a8 GhysZh4qOv3KLr56yIRthQFhBTF UR8dvoQ2qMU0ouCYaR8YhSPCpSx 9VBVa3rUolzS7tkdO2Lot2 zGI0Ys23u8jpjiJkb4OrIoW9YHs zwJv8pJyfEIzecI5kGuOeUJLKaP 9gkVfaWZ0amA9lggUsiTom biI+LazyYOHgEkd8uIZiKT31H7K aqMhfSin9lMQ4AQDshVKvERMnmU v7WPZXGIGWTJZhdAStwWgf wIRzMIOqsxDzbtS0PxoJLMVpMbA xKvx5R7gqCQW+Msahz0Z8Oyd1UW x8CYS1vHkvBDSos883CCLc hEhjbSuolOIzf80vPNNgmKFqPyB wg237PGYhudJ4TOsceEaxKxc9qH ToiVYyh0ezqBu1MhIzTGZo AttLMWOlgRscw9CaIubMXViwv5t etgBpiFcpXVZ5r6NrMCheQZIlRF H8CxHvMG8+CgkJPGNvbCB2 XPgyC449GlVjlTCem5bshGn2TfP 3IPSmGu9RRXymW83zT3KxwFA+Cg h8uSDxTCk+CgkJPHRyPgoJ COa9bMHib4U7kJV5SkKpaxTmh8h 3KIzwBHZ7DpO3EBR1dBYnlK2rhN rrmxklqB5bQrT+CgkJCTxk iXXhK6jyq4M7QuYns8GmiJkiwzK mVRWzHvBpb8jcLkylYJVxzQ3aFT A7PlIxJEPalBYkJYZiGR9o myWuwARiBPLuDeLfX1Cmm24rg8E qUFGQX2tNZqMmZBM0WA1eAzIbGO 0iXzljNGYzNmVlLWFlZGYt ZGRjDC43XGs8WGBsMIFyHCUdJwT 7TaDhw0G5uHV6DmVrIBWiyfd5XH RweDsiPjxzcGFuIGNsYXNz DQYhLAOeY9Fbb30moQTodJR9Qm9 5o1BqjxAapZtxBZ3nTx2vzC88HP trmTC7TVLdrAU8FPMreLEq SMAur4JugEpftgjleQ5bEXMhoA0 lOyI+R2hpLEMaM30yjNjjaL26UF 1ktRYpEbuau7Zkne2CNMfV YVJwpvEsuVWrvy4dWGBofVHgd36 2UD45HtDeMZaks271SQ09gFnlYH 4uVZGEO4TBMF9FRJILDjRl BYcxXSRrfgWrP9Q0fZwfAVBUG3U 1SpD9BQ8MGgDvBFTDD4BdVdIzWu 6GP3TZCIrMJsZ0ByZvEXto MVHxPLzjWIM7WozpIJG4MN83N4T iZKJ9DFRwWUReLfGrXDm5XyyeTw 0EVRfCEEHwnfRmhOIjgr2g EKAekVBsf221TK32dZDhiYXsETE maQ02VUDdAUXhsMH7Wr09QiF5TH H1YN2mHMOmWINmAQElXdD2 Zd10AjRwLDJhEAKwUHYeKlRib1W bp2PcyyW4cBHtCDXsgIfffbS7nN moYDf1ZqeWAZv5M7Uzgc5Y MLaVUP0ndRX+RvoZVVv9FIx1IOU hSLLwFYThWBTkF6Ozb31xUIMjMD EbUYCbZFDaXBNcGJqnn7Hz nSInFLQ4TBh2BKNbzlVnx9LdBrl iUaFvZQtoZWR2yA9fQ93rAS9pHO 2NAlHyEWMkZhVqTfJuaQD1 Uw7lPMIsDkcmJl7tQIavZSW9FcB fAWNiDh89ODqiULJqTDh1FvLnIV M6aLkfSQLgNWYvfD5zAaV9 fOy4Ov89f9CfwnDsvOXutn2xSFX zDKQ3iN7cMOugzTgfiDP+PHNwYW 7aq6V4qPK2ElBjfwEul5Xk X8i3JdDuk7jaNjR0JKa8QOKjD73 jXTYis124CLKvTJRhsLdvXLahFj rSDLRLlVZbFljkj4Cdez43 E6NtHB8+JgqEXHs6EOr2IZGiPNW zPSJkZGVtcmNvbnRlbnQiIGRkOm XecsJoeoU7wWSmVFPPXSTE GLXBD09LYURcPMCzSfNcHpXcYG8 rEOW1tYD3MaJ3AEXJJHMpEGq3VQ UxXBN3Jy4OXxTvHQWZCBWZ XpruWYN4KkIzwED5Ow14TeIuXhM jIf2rJCM8GZRxPLNlYVNlRZ50U2 P4Rtd0EJUbMEWjEgbMIUr5 UZz1JHXtFKItPVYbKRXwuzDpkfQ yiyNruOEgJDKzbsZtn9ImBlalWi FfDDhewS5fbZ4ziRhsY9J3 fLeaCPZ5t6EocgjgmPYgJPVkDfZ lbmIdadV7kXRvVNHASISERPETF1 6KQTUpAQUuRlJdpSh4rRrx EEOtGLnyTGBxLQX9UVAiAwevGeJ 5QC27CRH3JDEnAcPiJJCaKFCcW6 RnWtKxUtR0fJzlabtjDO0t ZGfdUL0pU5UxW2AiOX67CTLfy73 bGkiIUTj6CNu4EFH6eFbkYCSpWI WasZ50ORUkqOVmwJ66XFNb BHSwxpe2FSBkcObgWp1cISKhCaV pmLPfkjzbVLBzVIMsQFCfRfL2XM b8OMMddZkzCvClWPS2QqXu n0lcqcbvctsuMUYgQSHdLMLxNaQ 2AXg6KYjdTIYngZleOVreVyJbg4 20HPC3kRmtDdEkm7OjSNy0 SNScexDfm3ZyU3f2QkOku9NhYOn 6QCZddXIyXKDvg8AohCvwyxcjkz 8lKWudMvzIQRb2ZHy3Czcf RL5hfWO3Is65BHMfDYqkVP86DVN zQNOhCvNfIGJdRf3fKQl0VTefG8 MrKLLkRdesAM0GGkxEVHjy aXY+QwCpVFqtcG5oaBZskCFsMWP jfkMmJl6dbJ19OXDhGVQlu2NwVO jMYJrkjRhgEA68gyBtPZLy SGWvDIZ7qqgpGYJxm8AmrRBiAYI tEGBrl2ccem7uP29tdXK3iVDyAK PwP8BbQBsiGpDdi5tzogRd joKxiqTfxTZcPZCkfCqgUKS6b97 vQTInQINqpgCaslKdizH8oTYoKE SoMQ1boF1umQJpDHiuUrqt UJk7FbjNDFn7A9Ozza8HCIiPUC3 kaXY+IrdDSEmaOHd7XyqSNJd0S9 Ytet3LLCvIBD9ruUS+CgoJ NDw0XKr7JOUvMQLiFOJkOWQzT9Z qp90kRHYfXRXpNRTxWTGnFATsMT tea5TrsJGsAUF5ZBh1CISg pxMhp4HjFdliRnCbAHprEJE5hQ0 gU31dFB0fPP7VPwTrPZKxFdQmLu LcfYU0Qd4fWOGnYvGtBK57 NBfxIII8VKZjIWVoQx0jPuKyNMY tVeZ1SnKnBDF5ySnnLRMjXCDypY 0iHtT8vIr1Pg98l6XnyhTg mPGqqv9qPELkDNY1uX3iZQbiyPb heSI+KLBaOY3ub8P9bRJ0PqCath Hzr3GqB4j4CjDup2ajRsX0 VOy6YCKjJ13oAWWlf115LYJoJEM vqKyxYIilXjmad3Rtdwwzj8DnRV Koa7TgrRQXzXbeNZIyNZ3a mEKnBxyit7Cydh9APdnYFUbijVK wP2fjq4L5FfYmOI8cJ57ieUXmmJ CeIRR7J96zY0TyaW1uEFMH PzVbWVdvh423JR63dCzaCL2rSJ7 XB4ALRDVqJIAiFbVqDhOrUY5jIG O6fNW0HjTwJrQfOyT7XIW2 TAVuQUBTGe74UojWWGFJMyE1B1J 5O5I5LRZswZX5Bf9wHIltJYEhAM 8yYkqmGDVgARNdBHN8Bk9a PiLiZWX2CCxmRUXvZbtVKSp7RNs 2IGNsYXNzPSJkZGVtcmNvbnRlbn SvsXVxBrVnYTism894MA25 xCpwVR8aVCDCH2KKUP7GKMGSKiL yVEofpeMrrZqyAY8fAGf0RsV6HD U6SbBcGNS6NW78bEQ0ofCf d9driv3lQqVsqCX7Sw59BoXoXCD 4NZ9iIqSvTIP3FWZfOGAkXH90NI Y8DhTeYUZ2MDHkWsmJNSw7 BMp0LVPoMSRoXFQcNUYppDGngtU giTWxWEN9MV20qTZ5sNX3aBB5oH N6GjUon2MtkGHqmVMofEQ7 Wp22HIh9BTFqQO2lTVBrEXNmLPC zQfiuOQ3iIJZ5KrIiKkIcNQWxIq rSDUn5PNd2BEYkBUOvFKFh LAXlUGB2LEg1AEWmtbFbi4ZxFqx iEkAxUPevxD5cbN2rmLdyL1B1aC ubDJB5r2CulhtopBSeRWqy TAXtRlZvCcPbHfXfKAVbBv78VCZ cOAWbX4ZuIIrrWYUxEFOuYPK1Es 7vAMghIWquvo4fSJJMDW9s m8tvat1pL82nbUV3xEJjMAzex1D slOVfCigdfYMeCYJjLB6pGZSxrB 2bKKProJtzOCK1y385POsu RdfdpP4jJ9PqwxCvW7RmoOXmfOt zLCBsaWtlbHkgZnJvbSBiaWxlIH DwLls0lMygsjInGZXorfMa Bw3uZLjriTfhg2BfIdHmrQHxqYN 8qHA2wXKtUZQvJR2yqZArbO2nXY OrRBFbfC4vOBUxWBB1QRee pS4jvCJquWthWRAsaVJvgNkuBjW wUIL2xjGlgzVrW89iw76xb2e2jD HmhYUlzF3gA7cgIHqjtDG6 wRLenOQvx2ZubDZqoN8rIMGpusJ aNHIzQOMiYOtqYYVccvJ6tWM4GB n2XZ1tm5UfQQ0psIKwOSO6 m8BzEQ02M8Xaqv8XAPzHEC0doFW +PmbGWQbaWWr3PlpHXQg3D9Ioao 5VUVbGNM2eoUK+CgoJCQk8 SPk2RJLxENOrDXEsKHIoI2Uji16 gZGRyZWZyZXNoYWJsZSBkZGluc2 YuhOYxNJI1WLl6SLWlonKi z7SeLsupRsZoGDheWLQ4eP1iG10 eRM0uYG2EKmHoLHGyMFzePrXtvJ R8Yu04FbNqDXW2QX6yX2X3 L (more content not included)... Normal [facility] Comment on above: Result Comment: Elec tronically Signed By: ANGEL BARRIOS, Neel Gamboa\Date and Time Signed: 02/15/21 15:08 EST Pathology Noteon 02-14-2021 Pathology Note [id number]#1.00CD:127 Normal [facility] Outside Colonoscopyon 2020 Outside Colonoscopy [id number]#1.00CD:127 [facility] Lab Reportson 02-07-2021 Lab Reports [id number]#1.00CD:127 [facility] Pre-Certification Formon Pre-Certification Form [id number]#1.00CD:127 [facility] Consent for Procedure/Surger yon 01-19-2021 Consent for Procedure/Surgery [id number]#1.00CD:127 [facility] Provider Letter FTon 01-19 Provider Letter [facility] [place] January 19, 2021 AMADOR ABDALLA, [address] [place] [address] Re: ELIF TURNER Date of : 1945 Thank you for your referral of Elif Turner who was seen on consultation on 01/18/2021 for epigastric pain with nausea. An EGD and colonoscopy are planned for further evaluation. I have enclosed my consultation note for your review. I will be happy to follow Elif. Sincerely, Neel Razo MD General Surgery [facility] Ambulatory Clinical Summaryo n 01-18-2021 Ambulatory Clinical Summary {[id number]}CD:61 4368 [facility] Physician Referralon 021 Physician Referral [id number]#1.00CD:127 [facility] Consultation Noteon 12-07-19 21 Consultation Note [id number]#1.00CD:127 [facility] CNOVon 09-19-2017 CNOV Office Visit (VASSFT) -------ELIF TURNER ([id number]) 1945 [facility] Time Provider Department09/19/17 11:30 AM CHIDI MELLO During your visit today, we recorded the following information about you: Pulse Respiration Blood pressure Weight 52/minute 16/minute 115/46 93.4 kg Height 1.626 Margarita Mello MD 09/19/2017 11:59 AM [facility] Department of Cardiovascular MedicineOUTPATIENT VISIT DATE September 19, 2017OUTPATIENT VISIT TYPENEWPRIMARY CARE PHYSICIAN:Amador Abdalla MD ([facility])[address], [place] [address]Hxcmq: [phone]: [phone] PHYSICIANChrisyi Wilkins MD[address] [place] [address]TSOKE COMPLAINT:No chief complaint on file.HISTORY OF PRESENT [...] s/p PCI. On ASA, statin.HUMBERTO/PVR performed at [facility], right 0.94, left 1.14.PAST MEDICAL HISTORYDiagnosis [...] Prochlorperazine UnknownMEDICATIONS:medical supply, miscellaneous (COMMODE PAIL [facility]) USE DIRECTEDVENTOLIN HFA 90 mcg/actuation inhaleramLODIPine (NORVASC) [...] twice daily.ONETOUCH DELICA LANCETS 30 [facility] twice daily. 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] Other Visit Diagnoses:Diabetic peripheral neuropathy associated with type 2 diabetes mellitus ([facility]) [E11.42] PAD (peripheral artery disease) ([facility]) [I73.9]Prescriptions as of 09/19/2017 Sig: COMMODE PAIL [...] to improve.Follow-up and Disposition History RecordedEncounter Number: [id number] Status:Closed by CHIDI MELLO MD on 09/19/17 Normal [facility] PROGRESSon 09-19-2017 Protein mass conc HNO ID: [id number] thor: Chidi Feldman: (none)Author Type: PhysicianType: Progress NotesFiled: 09/19/2017 11:59 AMNote Text:[facility] Department of Cardiovascular MedicineOUTPATIENT VISIT DATE September 19, 2017OUTPATIENT VISIT TYPENEWPRIMARY CARE PHYSICIAN:Amador Abdalla MD ([facility])[address] [place], [place] [address]Zhkwq: [phone]: [phone] PHYSICIANChkiah Wilkins MD[address] [place] [address]VWFVT COMPLAINT:No chief complaint on file.HISTORY OF PRESENT ILLNESS:Elif Turner was referred for consultation by Dr. Zach Wilkins.Opinions and recommendations in this consultation will be transmitted backto the referring physician by [facility] notes or via mail.Ms. Turner is a 72 year old female who is seen today for evaluation fordiscomfort in the arch of her feet and mild discomfort in the legs whenwalking.Her walking is limited by osteoarthritis of the knees, hips and lowerback. She uses a walker.She has difficulty in maintaining her glucose levels.Hx of CAD s/p PCI. On ASA, statin.HUMBERTO/PVR performed at [facility], right 0.94, left 1.14.PAST MEDICAL HISTORYDiagnosis [...] tablet Take 1 tablet by mouth twice daily.GoodreadsTOUCH DELICA LANCETS 30 gauge misc twice daily. [...] Dr Wilkins of podiatry.Chidi Mello MD Normal [facility] Vital Signs Date Time Vital Sign Value Performing Clinician Facility 06-25-2021 12:15-0400 Body temperature 98.1 [degF] MD Amador Abdalla Work Phone: [facility] 06-25-2021 12:15-0400 Diastolic blood pressure 72 mm[Hg] MD Amador Abdalla Work Phone: [facility] 06-25-2021 12:15-0400 Heart rate 64 /min MD Amador Abdalla Work Phone: [facility] 06-25-2021 12:15-0400 Respiratory rate 18 /min MD Amador Abdalla Work Phone: [facility] 06-25-2021 12:15-0400 SaO2% (BldA) [Mass fraction] 96 % MD Amador Abdalla Work Phone: [facility] 06-25-2021 12:15-0400 Systolic blood pressure 127 mm[Hg] MD Amador Abdalla Work Phone: [facility] 06-25-2021 08:00-0400 Inhaled oxygen flow rate 3 L/min MD Amador Abdalla Work Phone: [facility] 06-25-2021 06:00-0400 Body weight 93.5 kg MD Amador Abdalla Work Phone: [facility] 06-24-2021 04:05-0400 Body height 162.56 cm MD Amador Abdalla Work Phone: [facility] 06-24-2021 04:05-0400 Body mass index (BMI) [Ratio] 34.9 kg/m2 MD Amador Abdalla Work Phone: [facility] 06-23-2021 19:30-0400 Diastolic blood pressure 61 mm[Hg] [facility] 06-23-2021 19:30-0400 Heart rate 80 /min [facility] 06-23-2021 19:30-0400 Respiratory rate 16 /min [facility] 06-23-2021 19:30-0400 SaO2% (BldA) [Mass fraction] 98 % [facility] 06-23-2021 19:30-0400 Systolic blood pressure 132 mm[Hg] [facility] Encounters Encounter Date Encounter Type Care Provider Facility Start: 11-12-2023 End: 11-12-2023 ambulatory AMADOR ABDALLA Not Available Start: 08-20-2023 End: 08-20-[address] [facility] Start: 04-26-2023 End: 04-26-2023 ambulatory AMAYA WILKINS Not Available Start: 03-13-2023 End: 03-13-2023 ambulatory AMADOR ABDALLA Not Available Start: 01-31-2023 End: 01-31-2023 ambulatory [facility] Start: 10-12-2022 Rx Renewal Zafar Chavira n DO Work Phone: [facility] [address] DO Work Phone: Start: 08-29-2022 End: 08-29-2022 ambulatory [facility] Start: 07-03-2022 End: 07-04-[address] AMADOR ABDALLA Facility:[facility] Start: 05-26-2022 End: 05-26-[address] AMADOR ABDALLA Facility:[facility] Start: 05-14-2022 End: 05-16-[address] AMADOR ABDALLA Facility:[facility] Start: 05-04-2022 End: 05-05-[address] AMADOR ABDALLA Facility:[facility] Start: 12-01-2021 End: 12-02-[address] AMADOR ABDALLA Facility:[facility] Start: 10-20-2021 Rx Renewal Zafar Readdo mcfadden DO Work Phone: [facility] [address] DO Work Phone: Start: 09-09-2021 End: [...] 06-25-2021 End: 07-29-2021 ambulatory UNKNOWN PROVIDER [facility] Start: 06-24-2021 End: 06-25-2021 Evaluation and management of inpatient Amador Abdalla Facility:[facility] Start: 06-24-2021 End: 06-25-2021 Evaluation and management of inpatient MD Amaodr Abdalla Work Phone: [facility] Start: 06-23-2021 End: 06-23-2021 ambulatory [facility] Emergenc y Triage, Treat and Transport Start: 06-23-2021 End: 06-23-2021 Emergency department patient visit [facility] Emergency Triage, Treat and Transport Comment on above: Arrived Start: 11-21-2018 End: 11-24-2018 Patient encounter procedure KELLI HANKINS Facility:[facility] Start: 09-19-2017 End: 09-19-2017 Patient encounter CHIDI MELLO [facility] Procedures Date Procedure Procedure Detail Performing Clinician Start: 06-24-2021 CL Iliac/Fem w/LHC MD Karin Abdalla Work Phone: Start: 06-24-2021 CL 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 SPECIALIST 1st Vesse l RCA BAMBI MD [...] Plain chest X-ray XR chest 1V portable [facility] Start: 07-10-2012 Pneumococcal vaccination Pneumococcal Vaccine(s) (65+ yrs) (1 - PCV) [facility] Start: 07-10-2012 Screening for osteoporosis [facility] Start: 07-10-1997 Measurement of occult blood in single stool specimen [facility] Start: 07-10-1997 Screening for malignant neoplasm [...] malignant neoplasm of colon Colonoscopy [facility] Patient Education Coronary Angio plasty (DC) Liraglutide Angina (DC) Drug Eluting Stents [facility] Work Phone: Patient referral [facility] Work Phone: Payers Date Payer Category Payer Medicare [id number] 2021 Self-pay [id number] 1957 Medicaid [id number] 1957 Medicare [id number] 1957 Unknown [id number] 1945 Unknown [id number] 2.16.8 40.1.069251.3.579.2.647 1945 Unknown [id number] 2.16. 840.1.825109.3.579.2.732 1945 Unknown [id number] 2.16.84 0.1.222864.3.579.2.593 1945 Unknown [id number] 2.16.84 0.1.354877.3.579.2.593 1945 Unknown [id number] 2.16.84 0.1.099112.3.579.2.593 1945 Unknown [id number] 2.16.84 0.1.047594.3.579.2.593 1945 Unknown [id number] 2.16.84 0.1.623366.3.579.2.593 1945 Unknown [id number] 2.16.84 0.1.161201.3.579.2.593 1945 Unknown [id number] 2.16.84 0.1.714833.3.579.2.593 1945 Unknown [id number] 2.16.84 0.1.813885.3.579.2.593 1945 Unknown [id number] 2.16.84 0.1.236837.3.579.2.593 1945 Unknown [id number] 2.16.84 0.1.312699.3.579.2.593 1945 Unknown [id number] 2.16.84 0.1.561274.3.579.2.593 1945 Unknown [id number] 2.16.84 0.1.027080.3.579.2.593 1945 Unknown [id number] 2.16.84 0.1.178271.3.579.2.593 1945 Unknown [id number] 2.16.84 0.1.325775.3.579.2.1259 1945 Unknown [id number] 2.16.84 0.1.248706.3.579.2.1259 1945 Unknown [id number] 2.16.84 0.1.508046.3.579.2.1259 Medicare [id number] Unknown Unknown [id number] 2.16.8 40.1.716631.3.579.2.531 Social History Date Type Detail Facility Tobacco smoking status [facility] Tobacco smoking consumption unknown [facility] Work Phone: Start: 1945 Sex Assigned At Not on file [facility] Start: 06-24-2021 Tobacco smoking status NHIS Never smoked tobacco (finding) [facility] Start: 1945 Sex Assigned At Female F [facility] Goals Date Patient Goal Desired Activity /State Functional Status Date Assessment Result Facility 06-25-2021 Functional status Patient at Baseline [facility] Work Phone: Mental Status Date Assessment Result Facility 06-25-2021 Cognitive function Cognitive Sta tus Patient is Progressing Toward Baseline [facility] Work Phone: Clinical Notes 01-18-2021 to 08-20-2023 Note Date & Type Note Facility 08-20-2023 Note [facility] Subjective Elif Turner is a 78 [...] Problem List Diagnosis Coronary artery disease involving tu[place]ne coronary artery of tu[place]ne heart without angina pectoris CKD stage 4 [...] dehydration and JAKI, treated by hydration at [facility] and did well. Since then she has been feeling well and has been eating and drinking well and no longer takes trazodone and lasix is 40 mg daily. No chest pain and no dyspnea. Her Cr on 07/09/2017 was 1.96 and down to 1.7 on 07/10/2017. Update 11/16/2017: She is seen in follow up. Most recently she was admitted to [facility] with decompensated diastolic heart failure. She [...] 11/05/2017: Cr 1.55; BUN 55. NT-proBNP [id number] [facility] 11/12/2017: BUN 42, Cr 1.47, K 4.5. Update 01/04/2018: She is seen in follow up. Last visit I saw her after her admission to [facility] with heart failure and she developed [...] Most recently she was admitted to the [facility] and transferred to [facility] due to decompensated diastolic heart failure in the setting of UTI. She underwent right heart catheterization that showed significantly elevated filling pressures and pulmonary hypertension. She underwent diuresis. Her renal function at discharge (more content not included)... 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 Visit of 07/18/2017: At last visit of 06/20/2017 I had increased lasix from 60 to 80 mg daily. After that she was not eating or drinking after she was started on trazodone. She developed dehydration and JAKI, treated by hydration at [facility] and did well. Since then she has been feeling well and has been eating and drinking well and no longer takes trazodone and lasix is 40 mg daily. No chest pain and no dyspnea. Her Cr on 07/09/2017 was 1.96 and down to 1.7 on 07/10/2017. Update 11/16/2017: She is seen in follow up. Most recently she was admitted to [facility] with decompensated diastolic heart failure. She [...] 11/05/2017: Cr 1.55; BUN 55. NT-proBNP [address] [facility] 11/12/2017: BUN 42, Cr 1.47, K 4.5. Update 01/04/2018: She is seen in follow up. Last visit I saw her after her admission to [facility] with heart failure and she developed [...] Most recently she was admitted to the [facility] and transferred to [facility] due to decompensated diastolic heart failure in [...] 1.57. BUN 56. (more content not included)... [facility] 01-31-2023 Note Patient here for 6 [...] All other systems reviewed and are negative. [facility] 08-29-2022 Note SUBJECTIVE: Chief complaint: Consultation [...] History: Diagnosis Date CHF (congestive heart failure) ([facility]) Chronic kidney disease Coronary artery disease Diabetes mellitus ([facility]) H/O total hysterectomy Heart attack ([facility]) Hyperlipidemia Hypertension Past Surgical History: Procedure Laterality [...] and at bedtime., Disp: , Rfl: HYDROcodone-acetaminophen ([place]) 5-325 mg tablet, Take 1 tablet by [...] Take 100 mg (more content not included)... [facility] 06-25-2021 Progress note Note Date/Time June 25, 2021 11:18am [facility] [address] [place] [address] Cardiology Progress Note Signed Patient: Elif Turner MR#: [id number] : 1945 Acct:[id number] Age/Sex: 75 / F Adm Date: 2 Loc: Room: [address] [place] [address] Type : ADM IN Attending Dr: Rusty [...] previous stents approximately 7 years ago in [place] details of which are unknown She really routinely follows with cardiology and saw her industrial cook 3 months ago with no symptoms Comorbidities are noted for diabetes, obesity, hyperlipidemia, chronic kidney disease and essential hypertension Mrs. Turner is doing well today status post PCI to the RCA (INSTRUMENTATION SPECIALIST) done per Dr. Bolivar yesterday. 2 [...] MPV Neut % (Auto) Lymph % (Auto) Wayne % (Auto) Eos % (Auto) Baso % (Auto) Neut # (Auto) Lymph # (Auto) Wayne # (Auto) Eos # (Auto) Baso # [...] % (Auto) 90.9 Lymph % (Auto) 4.3 Wayne % (Auto) 4.5 Eos % (Auto) 0.0 Baso % (Auto) 0.3 Neut # (Auto) 9.6 H Lymph # (Auto) 0.4 L Wayne # (Auto) 0.5 Eos # (Auto) 0.0 Baso # (Auto) 0.0 Nucleated RBC % (auto) 0.0 PT INR APTT POC Glucose 322 294 POC Glucose Comment Troponin I High Sens 06/25/21 06/25/21 06/25/21 05:24 05:24 07:51 Corrected WBC Uncorrected WBC Count RBC Hgb Hct MCV MCH MCHC RDW Plt Count MPV Neut % (Auto) Lymph % (Auto) Wayne % (Auto) Eos % (Auto) Baso % (Auto) Neut # (Auto) Lymph # (Auto) Wayne # (Auto) Eos # (Auto) Baso # [...] days. 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 Code(s): E11.9 - Type 2 diabetes mellitus without complications Status: Acute Plan: Okay to resume oral metformin in 24 hours. Aggressive glycemic control and control of serum insulin levels is recommended. 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 Within the construct of phase 2 monitored cardiac rehabilitation, a minimum 10% total body weight loss is strongly recommended Plan Okay for discharge to home today. Patient may follow-up with her primary industrial cook in [place] within 10 days. Again, as mentioned above, enrollment in phase2 monitored cardiac rehabilitation is strongly recommended Time spent with patient Time Spent With Patient (min): 30 Documented By: Andrea Marinelli MD 06/25/21 1116 Signed By: <Electronically signed by Andrea Marinelli MD> 06/25/21 1127 [facility] Work Phone: 1(592) 897-911405-07-2022 History of Present illness Narrative* Andreas Freitas MD - 06/25/2021 10:50 AM EDT Images from the original note were not included. EMERGENCY TRIAGE, TREAT AND TRANSPORT (ET3) DOCUMENTATION OF TELEHEALTH VISIT Date / Time: 06/23/20211929 Name: Elif Turner : 1945 SSN: (Not on file) EMS Agency: [facility] [x] Verbal consent obtained [] Implied [...] vomiting, fever. She does have nausea. She [id number] due to the chest pain, but the [...] by: Andreas Freitas MD documented in this [id number] Progress note Author Rusty Amor [facility] June 24, 2021 4:36pm Note Date/Time June 24, 2021 3:50pm [facility] [address] [place] [address] Hospitalist Progress Note Signed Patient: Elif Turner MR#: [id number] : 1945 Acct:[id number] Age/Sex: 75 / F Adm Date: 2 Loc: Room: [address] [place] [address] Type : ADM IN Attending Dr: Rusty [...] of care and confirmed it with the resident/student/GREEN FEED ATTENDANT. Patient was seen and examined at bedside [...] Dextrose-0.45 % Nacl IV 06/24/21 16:59 .Q10H [facility] Nitroglycerin/Dextrose 50 mg in 250 mls @ 1.5 mls/hr 06/24/21 15:30 Nitroglycerin 50 Mg-*D5w* IV 06/24/22 15:29 .Q24H [facility] Protocol 5 MCG/MIN Insulin Aspart 0 units 06/24/21 08:00 06/24/21 12:10 Insulin Aspart 300 Units/3 Ml Insuln.Pen SUBCUT 06/24/22 07:59 Not Given TID.WM.HS [facility] Protocol Insulin Detemir 10 units 06/24/21 22:00 Insulin Detemir 300 Units/3 Ml Insuln.Pen SUBCUT 06/24/22 21:59 QHS [facility] Lidocaine HCl 10 ml 06/24/21 13:52 Lidocaine [...] Montelukast 10 Mg Tablet PO 06/24/22 21:59 [facility] Nitroglycerin 0.4 mg 06/24/21 05:27 [...] CKD ?BUN 32 and creatinine 2.05 at [facility] yesterday Continue home medications. PT/OT Full code Rapid COVID-negative at [facility] Documented By: Nick Carr DO, RES 06/24/21 154 7 Signed By: <Electronically signed by DO JOSE DE JESUS Carr> 06/24/21 1633 <Electronically signed by Rusty Amor MD> 06/24/21 1636 [facility] Work Phone: 1(581) 625-203605-06-2022 Consult note Author W Osmel [facility] June 24, 2021 2:02pm Note Date/Time June 24, 2021 12:55p m [facility] [address] [place] [address] Cardiology Consult Note Signed Patient: Elif Turner MR#: [id number] : 1945 Acct:[id number] Age/Sex: 75 / F Adm Date: 2 Loc: 4 Room: [address] [place] [address] Type : ADM IN Attending Dr: Rusty Amor MD Copies to: MD Amador Winston MD W Scott Sheldon, DO~ Cardiology HPI History of Present Illness Consult Date: 06/24/21 Reason for Consult: Non-ST elevation MS HPI: Ms. Turner is a 75 year [...] previous stents approximately 7 years ago in [place] details of which are unknown She really routinely follows with cardiology and saw her industrial cook 3 months ago with no symptoms Comorbidities [...] x10E3/uL Lymph # (Auto) 1.8 (1.00-4.8) x10E3/uL [place] # (Auto) 0.6 (0.0-0.8) x10E3/uL Eos # [...] Code(s): I25.10 - Atherosclerotic heart disease of [place] coronary artery without angina pectoris (4) Diabetes: Code(s): E11.9 - Type 2 diabetes mellitus without complications (5) HTN (hypertension): Code(s): I10 - Essential (primary) hypertension Documented By: Gen Bolivar DO 06/24/21 1248 Signed By: <Electronically signed by Gen Bolivar DO> 06/24/21 7748 [facility] Work Phone: [phone]) 618-534005-06-[address] [facility]05-06-[address] [facility]05-06-2022 History and physical note Author Xander Nam [facility] June 24, 2021 6:14am Note Date/Time June 24, 2021 5:14am [facility] [address] [place] [address] Hospitalist H&P Signed Patient: Elif Turner MR#: [id number] : 1945 Acct:[id number] Age/Sex: 75 / F Adm Date: 2 Loc: 4 Room: [address] [place] [address] Type : ADM IN Attending Dr: Xander [...] type II, fibromyalgia, CKD who presented to [facility] yesterdaywith intermittent chest pain that started in the afternoon while she was watching TV with associated shortness of breath. She described this pain as pressure that involved her left chest as well as left breast and axilla. She presented to the [facility] emergency department and blood pressure was 160/71 [...] and 12 units/kg/h. She was transferred to [facility] for cardiac care for NSTEMI. The patient denied fever/chills, N/V, constipation/diarrhea. She does have history of chronic headaches however notes worsening of headache since yesterday. She does take Lasix as well with as needed for pedal edema. On evaluation at [facility], patient continues to endorse resting chest pain however diminished since initial presentation at [facility]. Per RN she was saturating 94% on [...] yesterday afternoon. ?Chest x-ray unremarkable ?EKG at [facility] normal sinus rhythm with no acute ischemia ?At [facility] troponin 162.6 with repeat 658.9. Repeat at [facility] ordered. ?Patient received bolus porcine heparin at 60 units/kg at [facility] with maintenance at 12 units/kg/h. Maintenance will be continued here. ?Coreg initiated at 12.5 mg twice daily. We will hold amlodipine pending cardiology recommendation. ?Continue losartan. ? Hold amlodipine and lasix pending cardiology consult. ?Cardiology consult ?Morphine for severe pain. Target pulse ox greater than 90%. Nitro for worsening chest pain. Received 324 mg aspirin at [facility]. 2. Coronary artery disease ?Status post 2 stents 5 and 7 years ago respectively per patient ?Continue atorvastatin 40 mg and 81 mg aspirin 3. Diabetes ?Hold home metformin and glipizide ?Initiate basal detemir 10 units with sliding scale coverage 4. CKD ?BUN 32 and creatinine 2.05 at [facility] yesterday Continue home medications. PT/OT Full code Rapid COVID-negative at [facility] Attending Provider Attestation Attending Physician Attestation: I personally saw this patient on the day of the encounter, reviewed the history,performed the cruz elements of the exam, formulated the plan of care and confirmed the resident's/director international/medical student's dictation/written note. Documented By: Marlon Leon DO, JOSE DE JESUS 06/24/21 050 4 Signed By: <Electronically signed by DO JOSE DE JESUS Leon> 06/24/21 0537 <Electronically signed by Xander Ortiz MD> 06/24/21 0614 [facility] Work Phone: [phone]) 659-610511-30-2021 NoteChief Complaint consultation for epigastric pain HPI [...] mg/inh nasa (more content not included)...[facility] HospitalComment on above:Result Comment: Electronically Signed By: ANGEL BARRIOS, Neel Gamboa\Date and Time Signed: 01/18/21 20:28 ESTDischarge summary Author Rusty Amor [facility] June 25, 2021 1:30pm Note Date/Time June 25, 2021 1:30pm [facility] [address] [place] [address] Discharge Summary Signed Patient: Elif Turner MR#: [id number] : 1945 Acct:[id number] Age/Sex: 75 / F Adm Date: 2 Loc: Room: [address] [place] [address]: Rusty Amor MD Copies to: [...] She presented to the emergency department of [facility] on June 24, complaining of chest discomfort. Her troponins were abnormal. She was transferred to our hospital with a diagnosis of non-STEMI. She was taken to the [facility] on June [facility], where she underwent coronary [...] W Domingo Bolivar DO s CL 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 SPECIALIST 1st Vessel RCA BAMBI - W [...] % (Auto) 90.9, Lymph % (Auto) 4.3, [place] % (Auto) 4.5, Eos % (Auto) 0.0, Baso % (Auto) 0.3, Neut # (Auto) 9.6 H, Lymph # (Auto) 0.4 L, [place] # (Auto)0.5, Eos # (Auto) 0.0, Baso [...] doctor or pharmacist, without first calling the industrial cook who implanted the stent. If you require [...] weight lifting, stair steppers, etc. until the industrial cook approves these activities. Check with the industrial cook on your first follow-up visit. CALL YOUR PHYSICIAN at [phone]: -If bleeding should occur from the catheter insertion site- apply pressure to the site then immediately call us. -Report any fever, redness, drainage, increased swelling, or firmness at the catheter insertion site. Some bruising or slight swelling may be present at thetime of discharge. -Should arm or leg become cold, numb, white, or blue, contact the industrial cook immediately. -IF you should experience episodes of [...] is recommended. Please call Central Scheduling at [phone] to schedule your appointment.] The attending industrial cook or [facility] nurse clinician should provide you with specific instructions regarding activity, diet, medications, and further follow up for you. Follow the medication instructions provided on your discharge. If the dosages and instructions on this sheet differ from the dosage and instructions on the bottle, follow the instructions on the bottle. [facility] is not responsible for incorrect prescription information [...] Sunday to schedule follow- up with your Swiss Machinist. ) Documented By: Rusty Amor MD 06/25/21 1326 Signed By: <Electronically signed by Rusty Amor MD> 06/25/21 1335 [facility] Work Phone: Evaluation note* Diagnosis Chest pain, unspecified type- Primary PND (paroxysmal nocturnal dyspnea) Other dyspnea and respiratory abnormality [facility] Diagnosis Onset Date Resolution Status CAD (coronary artery disease) acute Chronic kidney disease acute Depression acute Diabetes acute Fibromyalgia acute GERD (gastroesophageal reflux disease) acute HTN (hypertension) acute NSTEMI (non-ST elevated myocardial infarction) acute [facility] Work Phone: Hospital Discharge instructionsAmbulatory Orders* [...] doctor or pharmacist, without first calling the industrial cook who implanted the stent. If you require [...] weight lifting, stair steppers, etc. until the industrial cook approves these activities. Check with the industrial cook on your first follow-up visit. CALL YOUR PHYSICIAN at [phone]: -If bleeding should occur from the catheter insertion site- apply pressure to the site then immediately call us. -Report any fever, redness, drainage, increased swelling, or firmness at the catheter insertion site. Some bruising or slight swelling may be present at the time of discharge. -Should arm or leg become cold, numb, white, or blue, contact the industrial cook immediately. -IF you should experience episodes of [...] is recommended. Please call Central Scheduling at [phone] to schedule your appointment.] The attending industrial cook or [facility] nurse clinician should provide you with specific instructions regarding activity, diet, medications, and further follow up for you. Follow the medication instructions provided on your discharge. If the dosages and instructions on this sheet differ from the dosage and instructions on the bottle, follow the instructions on the bottle. [facility] is not responsible for incorrect prescription information provided by the patient during their visit. Do not stop your medications without consulting your health care provider. Please take the list with you to your next doctor's appointment. Home Health to manage care: - Full code - PT/OT eval and treat - [facility] Work Phone: Summary Purpose Family History [...] section and content) DATE CREATED AUTHOR 09/19/2017 [facility] DATE CREATED AUTHOR AUTHOR'S ORGANIZ ATION 11/23/2019 [facility] DATE CREATED AUTHOR AUTHOR'S ORGANIZ ATION 05/07/2021 [facility] DATE CREATED AUTHOR AUTHOR'S ORGANIZ ATION 07/30/2021 [facility] DATE CREATED AUTHOR AUTHOR'S ORGANIZ ATION 03/25/2022 [facility] DATE CREATED AUTHOR AUTHOR'S ORGANIZ ATION 07/05/2022 [facility] DATE CREATED AUTHOR AUTHOR'S ORGANIZ ATION 08/21/2023 [facility] DATE CREATED AUTHOR AUTHOR'S ORGANIZ ATION 11/14/2023 [facility] EPIC Reason for Visit [...] BE BASED ON THE PRIMARY CLINICAL RECORDS. [facility]. provides no warranty or guarantee of the accuracy or completeness of information in this document.
[2023-11-19 06:39] LABS: Basophils Absolute Auto 0.1 10^3/uL (0.0-0.1); Basophils Percent Auto 0.5 % (0.2-2.0); Eosinophils Absolute Auto 0.3 10^3/uL (0.0-0.7); Eosinophils Percent Auto 2.6 % (0.9-7.0); Hematocrit 34.1 % (36.0-48.0); Immature Granulocytes Abs Auto 0.03 10^3/uL (0.00-0.03); Immature Granulocytes Pct Auto 0.3 % (0.0-0.5); Lymphocytes Absolute Auto 2.7 10^3/uL (1.2-3.8); Lymphocytes Percent Auto 27.8 % (20.5-60.0); Mean Corpuscular HGB Conc 32.3 g/dL (29.9-35.2); Mean Corpuscular Hemoglobin 31.1 pg (26.7-34.0); Mean Corpuscular Volume 96.3 fL (81.0-99.0); Mean Platelet Volume 10.6 fL (9.5-13.5); Neutrophils Absolute Auto 5.7 10^3/uL (1.4-6.5); Neutrophils Percent Auto 58.8 % (43.0-75.0); Platelet Count 231 10^3/uL (150-450); Red Blood Count 3.54 10^6/uL (4.20-5.40); Red Cell Distribution Width 12.1 % (11.0-15.0); White Blood Count 9.6 10^3/uL (4.0-11.0)
[2023-11-19 06:59] LABS: Alanine Aminotransferase 35 U/L (14-59); Albumin Globulin Ratio 0.8; Albumin Level 2.4 g/dL (3.4-5.0); Alkaline Phosphatase 75 U/L (46-116); Anion Gap 13.2; Aspartate Amino Transferase 33 U/L (15-37); BUN Creatinine Ratio 16.3; Bilirubin Total 0.6 mg/dL (0.2-1.0); Calcium 8.8 mg/dL (8.5-10.1); Carbon Dioxide 21.3 mmol/L (21.0-32.0); Chloride 108 mmol/L (98-107); Estimated GFR (African America 36 (>=60); Estimated GFR (Non-African Ame 30 (>=60); Glucose 169 mg/dL (74-106); Potassium 3.5 mmol/L (3.5-5.1); Sodium 139 mmol/L (136-145); Total Protein 5.4 g/dL (6.4-8.2)
[2023-11-19 07:18] LABS: Creatine Kinase 322 U/L (26-192)
[2023-11-19 08:07] LABS: Troponin I High Sensitivity 54.4 pg/mL (4.0-51.3)
[2023-11-19 08:15] LABS: Glucometer 233 mg/dL (74-106)
[2023-11-19] MEDS: BUPROPION HCL 150 MG XL TABLET 24H PO (08:40)
[2023-11-19] MEDS: INSULIN ASPART 300 UNIT/3 ML PEN SUBQ ×3 (08:40→16:39)
[2023-11-19] MEDS: ACETAMINOPHEN 325 MG TABLET 650 MG PO (08:40)
[2023-11-19] MEDS: FAMOTIDINE 20 MG TABLET 40 MG PO (08:40)
[2023-11-19] MEDS: AMLODIPINE BESYLATE 5 MG TABLET 10 MG PO (08:41)
[2023-11-19] MEDS: OMEPRAZOLE 40 MG CAPSULE.DR PO (08:41)
[2023-11-19] MEDS: ASPIRIN 81 MG TAB.CHEW PO (08:41)
[2023-11-19] MEDS: CHOLECALCIFEROL (VITAMIN D3) 25 MCG/1,000 UNITS TABLET PO (08:41)
[2023-11-19] MEDS: PAROXETINE HCL 20 MG TABLET 40 MG PO (08:41)
[2023-11-19] MEDS: CARVEDILOL 6.25 MG TABLET PO (08:41)
--- NOTE | 2023-11-19 10:12 | PM.IMPN1 ---
Progress Note: A&P Assessment and Plan (1) Fall: Assessment and Plan: Mechanical fall at home. Has had 3 falls within past 1 week. PT/OT evaluation. She will likely need inpatient rehab for which she will need precertification from her insurance. Qualifiers: Encounter type: subsequent encounter Qualified Code(s): W19.XXXD - Unspecified fall, subsequent encounter (2) Generalized weakness: Assessment and Plan: Subjectively better but is still overall weak and unable to ambulate without assist. PT/OT evaluation. (3) Rhabdomyolysis: Assessment and Plan: Mild rhabdomyolysis from fall and prolonged immobility. Continue with gentle IV hydration Qualifiers: Rhabdomyolysis type: non-traumatic Qualified Code(s): M62.82 - Rhabdomyolysis (4) JAKI (acute kidney injury): Assessment and Plan: Serum creatinine mildly improved. Continue with IV hydration. (5) Hypertensive urgency: Assessment and Plan: Blood pressure is labile and fluctuates. Overall poorly controlled. Increase carvedilol to 12.5 twice daily. Continue with amlodipine once daily. IV hydralazine as needed (6) HTN (hypertension): Assessment and Plan: Poorly controlled but overall better from before. Increase carvedilol to 12.5 twice daily. Continue with same dose of amlodipine. Qualifiers: Hypertension type: primary hypertension Qualified Code(s): I10 - Essential (primary) hypertension (7) UTI (urinary tract infection): Assessment and Plan: IV Rocephin. Monitor. Qualifiers: Hematuria presence: without hematuria Urinary tract infection type: acute cystitis Qualified Code(s): N30.00 - Acute cystitis without hematuria (8) Leukocytosis: Assessment and Plan: Resolved. Likely reactive. Qualifiers: Leukocytosis type: leukemoid reaction Qualified Code(s): D72.823 - Leukemoid reaction (9) Diabetes: Assessment and Plan: On sliding scale insulin while inpatient. Qualifiers: Diabetes mellitus complication status: without complication Diabetes mellitus usp insulin use: without usp use Diabetes mellitus type: type 2 Qualified Code(s): E11.9 - Type 2 diabetes mellitus without complications (10) Elevated troponin: Assessment and Plan: Trending down. No evidence of active cardiac ischemia. Continue with aspirin, beta-tung and statin (11) CAD (coronary artery disease): Assessment and Plan: Chest pain, shortness of breath. Continue with home medications Qualifiers: Associated angina: without angina Coronary Disease-Associated Artery/Lesion type: [place] artery [place] vs. transplanted heart: [place] heart Qualified Code(s): I25.10 - Atherosclerotic heart disease of [place] coronary artery without angina pectoris (12) HLD (hyperlipidemia): Assessment and Plan: Continue with Lipitor. Qualifiers: Hyperlipidemia type: unspecified Qualified Code(s): E78.5 - Hyperlipidemia, unspecified Internal Medicine - PN: Subj Subjective Interval history: Seen and examined. Subjectively feels better. No overnight events. Exam Constitutional Vital Signs, click to edit/add: Last Vital Signs Temp 98.1 F 11/19/23 04:11 Pulse 80 11/19/23 09:53 Resp 18 11/19/23 04:11 BP 191/69 H 11/19/23 08:41 Pulse Ox 92 L 11/19/23 04:11 O2 Del Method Room Air 11/19/23 04:11 Documenting provider has reviewed patient's vital signs: yes Common normals: no apparent distress and oriented x3 General appearance: cooperative and frail appearing Respiratory Common normals: normal respiratory effort and clear to auscultation bilaterally Effort & inspection: able to speak in complete sentences Auscultation: clear to auscultation bilaterally Cardio Common normals: regular rate, S1 normal heart sound and S2 normal heart sound Rate: regular rate Heart sounds: S1 normal and S2 normal Extremity Common normals: no clubbing, cyanosis or edema Neuro Common normals: oriented x3, moves all extremities and no focal motor deficits Psych Common normals: mental status grossly normal, denies hallucinations, denies homicidal ideation and denies suicidal ideation Internal Medicine - PN: Obj Da Labs Labs: Laboratory Results - last 24 hr 11/18/23 11/18/23 11/18/23 09:58 10:10 10:50 WBC RBC Hgb Hct MCV MCH MCHC RDW Plt Count MPV Neut % (Auto) Lymph % (Auto) [place] % (Auto) Eos % (Auto) Baso % (Auto) Neut # (Auto) Lymph # (Auto) [place] # (Auto) Eos # (Auto) Baso # (Auto) Abs Immat Gran (auto) Imm/Tot Granulo (auto) Sodium 135 L Potassium 4.1 Chloride 100 Carbon Dioxide 25.1 Anion Gap 14.0 BUN 28.0 H Creatinine 1.85 H Est GFR ( Amer) 32 L Est GFR (Non-Af Amer) 27 L BUN/Creatinine Ratio 15.1 Glucose 394 H Calcium 10.2 H Total Bilirubin AST ALT Alkaline Phosphatase Total Creatine Kinase 340 H* Myoglobin 1246 H* Troponin I High Sens 58.5 H* 55.3 H* Total Protein Albumin Globulin Albumin/Globulin Ratio Urine Color Yellow Urine Clarity Clear Urine pH 6.5 Ur Specific [place] 1.020 Urine Protein >=300 A Urine Glucose (UA) >=1000 A Urine Ketones Trace A Urine Occult Blood Moderate A Urine Nitrite Negative Urine Bilirubin Small A Urine Urobilinogen 1.0 Ur Leukocyte Esterase Negative Urine RBC None seen Urine WBC 0-2 A Ur Squamous Epith Cells Few A Ur Transition Epith Cell Rare A Urine Crystals Seen A Amorphous Sediment Many Urine Bacteria Moderate A Urine Casts None seen Urine Mucus Trace A Ur Culture Indicated? Yes POC Glucose 11/18/23 11/18/23 11/18/23 13:28 16:01 19:45 WBC RBC Hgb Hct MCV MCH MCHC RDW Plt Count MPV Neut % (Auto) Lymph % (Auto) [place] % (Auto) Eos % (Auto) Baso % (Auto) Neut # (Auto) Lymph # (Auto) [place] # (Auto) Eos # (Auto) Baso # (Auto) Abs Immat Gran (auto) Imm/Tot Granulo (auto) Sodium Potassium Chloride Carbon Dioxide Anion Gap BUN Creatinine Est GFR ( Amer) Est GFR (Non-Af Amer) BUN/Creatinine Ratio Glucose Calcium Total Bilirubin AST ALT Alkaline Phosphatase Total Creatine Kinase Myoglobin Troponin I High Sens 63.2 H* Total Protein Albumin Globulin Albumin/Globulin Ratio Urine Color Urine Clarity Urine pH Ur Specific [place] Urine Protein Urine Glucose (UA) Urine Ketones Urine Occult Blood Urine Nitrite Urine Bilirubin Urine Urobilinogen Ur Leukocyte Esterase Urine RBC Urine WBC Ur Squamous Epith Cells Ur Transition Epith Cell Urine Crystals Amorphous Sediment Urine Bacteria Urine Casts Urine Mucus Ur Culture Indicated? POC Glucose 389 H 262 H 11/19/23 11/19/23 06:03 08:13 WBC 9.6 RBC 3.54 L Hgb 11.0 L Hct 34.1 L MCV 96.3 MCH 31.1 MCHC 32.3 RDW 12.1 Plt Count 231 MPV 10.6 Neut % (Auto) 58.8 Lymph % (Auto) 27.8 [place] % (Auto) 10.0 Eos % (Auto) 2.6 Baso % (Auto) 0.5 Neut # (Auto) 5.7 Lymph # (Auto) 2.7 [place] # (Auto) 1.0 H Eos # (Auto) 0.3 Baso # (Auto) 0.1 Abs Immat Gran (auto) 0.03 Imm/Tot Granulo (auto) 0.3 Sodium 139 Potassium 3.5 Chloride 108 H Carbon Dioxide 21.3 Anion Gap 13.2 BUN 27.0 H Creatinine 1.66 H Est GFR ( Amer) 36 L Est GFR (Non-Af Amer) 30 L BUN/Creatinine Ratio 16.3 Glucose 169 H Calcium 8.8 Total Bilirubin 0.6 AST 33 ALT 35 Alkaline Phosphatase 75 Total Creatine Kinase 322 H* Myoglobin Troponin I High Sens 54.4 H* Total Protein 5.4 L Albumin 2.4 L Globulin 3.0 Albumin/Globulin Ratio 0.8 Urine Color Urine Clarity Urine pH Ur Specific [place] Urine Protein Urine Glucose (UA) Urine Ketones Urine Occult Blood Urine Nitrite Urine Bilirubin Urine Urobilinogen Ur Leukocyte Esterase Urine RBC Urine WBC Ur Squamous Epith Cells Ur Transition Epith Cell Urine Crystals Amorphous Sediment Urine Bacteria Urine Casts Urine Mucus Ur Culture Indicated? POC Glucose 233 H
--- NOTE | 2023-11-19 10:14 | CM.NOTE ---
Rounds made with Dr. Sibley, awaiting PT and OT evaluation for discharge planning.
--- NOTE | 2023-11-19 10:40 | SWNOTE1 ---
SW spoke to case management and if pt needs SNF, she would like [facility] as first choice and [facility] as second.
--- NOTE | 2023-11-19 11:12 | SWNOTE1 ---
SNF is recommended. Referral sent to [facility]. Referral included face sheet, ED note, H&P, provider notes, case management report, nursing notes, diagnostic imaging, med list, and PT/OT notes.
[2023-11-19 11:16] LABS: Glucometer 396 mg/dL (74-106)
[2023-11-19] MEDS: POTASSIUM CHLORIDE 10 MEQ ER TABLET 40 MEQ PO (11:16)
--- NOTE | 2023-11-19 15:04 | SWNOTE1 ---
SW received email from Gabrielle and precert has been started to [facility].
--- NOTE | 2023-11-19 15:05 | SWNOTE1 ---
SW updated doctor and nurse.
[2023-11-19 16:10] LABS: Glucometer 353 mg/dL (74-106)
--- NOTE | 2023-11-19 16:22 | SWNOTE1 ---
SW received an email from Gabrielle castillo [facility] and pt is approved. SW let doctor and nurse know.
--- NOTE | 2023-11-19 16:35 | SWNOTE1 ---
JIMMIE completed HENS. Dr. Sibley did ask if pt can go to [place] today. JIMMIE reached out to Gabrielle at [facility] and she stated yes. The issue is finding transport. [facility] does not have any availability. It is too late for trips or [facility] [place] to transport.
[2023-11-19] MEDS: CEFTRIAXONE 1,000 MG in 0.9 % SODIUM CHLORIDE 50 ML 100 MG IV (16:37)
[2023-11-19] MEDS: ALPRAZOLAM 0.5 MG TABLET PO (16:37)
--- NOTE | 2023-11-19 16:42 | SWNOTE1 ---
JIMMIE called daughter and she will transport and voiced she usually does and she was on her way here anyway. JIMMIE let nurse know and doctor. Doctor putting orders in. JIMMIE called Gabrielle at [facility] and notified.
--- NOTE | 2023-11-19 16:44 | SWNOTE1 ---
SW took packet to floor and nursing will fax over dc med rec. Pt is going to [facility].
--- NOTE | 2023-11-20 10:09 | SWNOTE1 ---
JIMMIE returned a phone call to Lizz from [facility], pt's primary care provider, and let her know that pt went skilled to [facility].
== END 2023-11-19 19:00 ==
LOC: ER 11:55 → MS 11-19 06:06
PROVIDERS: Admitting Provider Internal Medicine; Emergency Provider Emergency Medicine; PCP Family Medicine; Visit Provider Internal Medicine
DX: M62.82 Rhabdomyolysis (principal); R53.1 Weakness; N17.9 Acute kidney failure, unspecified; I16.0 Hypertensive urgency; N30.00 Acute cystitis without hematuria; D72.823 Leukemoid reaction; E11.9 Type 2 diabetes mellitus without complications; R79.89 Other specified abnormal findings of blood chemistry; I25.10 Atherosclerotic heart disease of native coronary artery without angina pectoris; E78.5 Hyperlipidemia, unspecified; Z79.899 Other long term (current) drug therapy; Z79.82 Long term (current) use of aspirin; Z91.81 History of falling
CPT/HCPCS: 36415; 70450; 71045; 72125; 73502; 80048; 80053; 81001; 82550; 82948; 83874; 84484; 85025; 87040; 87086; 93005; 94761; 96361; 96365; 96366; 96372; 96375; 97162; 97165; 99285; G0378; J0360; J0696; J1644

== ENCOUNTER 2024-02-23 13:24 | Emergency (ER) | payer MEDICARE, MEDICAID, SELFPAY ==
[2024-02-23 13:19] VITALS: BP 173/61; PULSE 77; TEMP 36.6; O2SAT 96; BMI 34.3
--- NOTE | 2024-02-23 13:24 | PC.NURSE ---
Skin tear to left elbow, no swelling, redness or bruising noted, moves left arm without difficulty.
--- NOTE | 2024-02-23 13:50 | XR_ITS ---
The [address] [address] Patient Name: RIVKA TURNER MRN: [id number] date: 1945 Sex: F Assigned Patient Location: ER Current Patient Location: ER Accession/Order Number: [id number] Exam Date: 02/23/2024 14:15 Report Date: 02/23/2024 15:18 At the request of: BERNADETTE ANGELES Procedure: XR elbow LT min 3V XR elbow LT min 3V, 02/23/2024 2:15 PM EST INDICATION: fall, elbow injury and pain COMPARISON: None. TECHNIQUE: 3 views of the left elbow. FINDINGS: Questionable linear lucency may be seen about the medial epicondyle. A subtle medial epicondyle fracture cannot be excluded. Small anterior joint effusion is seen. Joint alignment is normal. XR/XR elbow LT min 3V IMPRESSION: Questionable linear lucency may be seen about the medial epicondyle. A subtle medial epicondyle fracture cannot be excluded. Small anterior joint effusion is seen. Electronically authenticated by: LONNIE LUNA Date: 02/23/2024 15:18
--- NOTE | 2024-02-23 13:57 | ED.UPPEXIN1 ---
HPI HPI - Extremity Injury (Upper) General Chief Complaint: Extremity Injury, Upper Stated Complaint: FALL Time Seen by Provider: 02/23/24 13:35 Source: patient Mode of arrival: walk-in Limitations: no limitations History of Present Illness HPI narrative: the patient lost her footing and fell, striking the left elbow against the wall. She sustained an abrasion to the lateral left elbow and has pain in the left elbow joint. No other injuries or complaints. She did not strike her head, neck or back. No LOC. No shoulder, wrist, hand or clavicle pain. Nothing taken for pain. She had a tetanus updated within the last 5 years, she told me. Related Data Home Medications ?Medication ?Instructions ?Recorded ?Confirmed alprazolam 0.5 mg tablet 0.5 mg PO TID PRN anxiety 11/18/23 02/23/24 amlodipine 10 mg tablet 10 mg PO DAILY 11/18/23 02/23/24 atorvastatin 80 mg tablet 80 mg PO .QHS 11/18/23 02/23/24 bupropion HCl 150 mg 24 hr tablet, 150 mg PO DAILY 11/18/23 02/23/24 extended release cholecalciferol (vitamin D3) 25 25 mcg PO DAILY 11/18/23 02/23/24 mcg (1,000 unit) tablet famotidine 40 mg tablet 40 mg PO DAILY 11/18/23 02/23/24 furosemide 20 mg tablet 20 mg PO DAILY 11/18/23 02/23/24 hydralazine 100 mg tablet 100 mg PO TID 11/18/23 02/23/24 hydrocodone 5 mg-acetaminophen 325 1 tab PO Q8H PRN pain (scale score 11/18/23 02/23/24 mg tablet 7-10) montelukast 10 mg tablet 10 mg PO .QHS 11/18/23 02/23/24 nystatin 100,000 unit/gram topical 1 applic topical TID 11/18/23 11/18/23 powder (Klayesta) pantoprazole 40 mg tablet,delayed 40 mg PO BID 11/18/23 02/23/24 release paroxetine HCl 40 mg tablet 40 mg PO DAILY 11/18/23 02/23/24 sitagliptin phosphate 25 mg tablet 25 mg PO DAILY 11/18/23 02/23/24 (Januvia) sucralfate 1 gram tablet 1 g PO .QHS 11/18/23 02/23/24 temazepam 15 mg capsule 15 mg PO .QHS 11/18/23 02/23/24 Previous Rx's ?Medication ?Instructions ?Recorded carvedilol 6.25 mg tablet 12.5 mg (2 x 6.25 mg) PO BID #0 11/19/23 tabs Allergies Allergy/AdvReac Type Severity Reaction Status Date / Time cyclobenzaprine (From Allergy Severe Rash Verified 02/23/24 13:18 Flexeril) ethinyl estradiol (From Allergy Severe Swelling Verified 02/23/24 13:18 [place] (28)) of Lip/Tongue/Throat exenatide (From [place]) Allergy Severe Rash Verified 02/23/24 13:18 Iodinated Contrast Media Allergy Severe Rash Verified 02/23/24 13:18 levonorgestrel (From [place] Allergy Severe Swelling Verified 02/23/24 13:18 (28)) of Lip/Tongue/Throat Penicillins Allergy Severe Rash Verified 02/23/24 13:18 prochlorperazine (From Allergy Severe Confusion Verified 02/23/24 13:18 Compazine) clindamycin (From Cleocin) AdvReac Severe esophagus Verified 02/23/24 13:18 spasms doxycycline AdvReac Severe Nausea Verified 02/23/24 13:18 levofloxacin AdvReac Severe Nausea Verified 02/23/24 13:18 ticagrelor (From Brilinta) AdvReac Severe Vomiting Verified 02/23/24 13:18 trazodone AdvReac Severe Nausea Verified 02/23/24 13:18 Opioid HPI Opioid Management Most Recent Pain and Opioid Data: Last Pain Scale 3 11/19/23 10:40 11/19/23 Last ORT Total Score 0 11/18/23 13:18 11/18/23 Last ORT Risk Category Low Risk 11/18/23 13:18 11/18/23 [facility] Medical History (Updated 02/23/24 @ 15:28 by Arnold Sharp) UTI (urinary tract infection) ?N39.0 - Urinary tract infection, site not specified (ICD-10) Elevated troponin ?R79.89 - Other specified abnormal findings of blood chemistry (ICD-10) Generalized weakness ?R53.1 - Weakness (ICD-10) Fall ?W19.XXXA - Unspecified fall, initial encounter (ICD-10) HTN (hypertension) ?I10 - Essential (primary) hypertension (ICD-10) HLD (hyperlipidemia) ?E78.5 - Hyperlipidemia, unspecified (ICD-10) CAD (coronary artery disease) ?I25.10 - Atherosclerotic heart disease of [place] coronary artery without angina pectoris (ICD-10) History of heart attack ?I25.2 - Old myocardial infarction (ICD-10) History of stroke ?Z86.73 - Personal history of transient ischemic attack (TIA), and cerebral infarction without residual deficits (ICD-10) Diabetes ?E11.9 - Type 2 diabetes mellitus without complications (ICD-10) Surgical History (Updated 11/18/23 @ 12:47 by Leona Mario LPN) History of heart artery stent ?Z95.5 - Presence of coronary angioplasty implant and graft (ICD-10) Hx of cholecystectomy ?Z90.49 - Acquired absence of other specified parts of digestive tract (ICD-10) H/O hernia repair ?Z98.890 - Other specified postprocedural states (ICD-10) ?Z87.19 - Personal history of other diseases of the digestive system (ICD-10) Family History (Updated 11/18/23 @ 12:46 by Leona Mario LPN) Mother Family history of COPD (chronic obstructive pulmonary disease) Family history of cancer Family history of diabetes mellitus Father Family history of hypertension Social History (Updated 11/18/23 @ 12:49 by Leona Mario LPN) Within the past year, how often did you have a drink containing alcohol: never Within the past year, how often did you have six or more drinks on one occasion: never Score interpretation: A score less than 3 is consistent with normal alcohol consumption. Smoking status: Never smoker Second hand tobacco smoke exposure: No Non-prescribed substance use: denies use Previous occupational history: retired Known occupational exposures/hazards: No Highest level of school completed/degree received: high school graduate Are you now , , , , never or living with a partner: In a typical week, how many times do you talk on the telephone with family, friends, or neighbors: 3 or more times per week How often do you get together with friends or relatives: 3 or more times per week How often do you attend episcopal or church services: never Do you belong to any clubs or organizations such as episcopal groups unions, fraternal or athletic groups, or school groups: no Total score: 1 Score interpretation: A score of less than or equal to 1 indicates the most socially isolated. Little interest or pleasure in doing things: not at all Feeling down, depressed, or hopeless: not at all Feel stressed/tense/nervous/anxious/difficulty sleeping: not at all Due to disability, difficulty making decisions: No Do you think of yourself as: straight/heterosexual Gender Identity: female Exam Narrative Exam Narrative: Nurses note and vital signs reviewed and patient is not hypoxic. afebrile General: The patient appears well and in no apparent distress. Patient is resting comfortably on cart. GCS = 15. Skin: Warm, dry, no pallor noted. Head: Normocephalic, atraumatic Neck: Supple, trachea mid-line, no tenderness, no lymphadenopathy. Full ROM and no cervical spinal tenderness. The patient has no step-offs or crepitus noted Eyes: PERRLA, EOMI ENT: TM's clear, no hemotympanum detected, no blood in posterior oropharynx Cardiovascular: Regular Rate and Rhythm Respiratory: Patient is in no distress, no accessory muscle use, lungs are clear to auscultation, no wheezing, rales or rhonchi Chest Wall: no tenderness, no flail chest, contusion, abrasion, or signs of trauma. Back: No thoracic vertebral or lumbar vertebral tenderness to palpation. Negative straight leg raise bilaterally. No ecchymosis, abrasions, lacerations noted. Musculoskeletal: triangle-shaped superficial abrasion to the lateral left elbow. No foreign material noted and bleeding is controlled. No additional sign of long bone fracture - no tenderness or swelling to the eft clavicle, left shoulder, left humerus, left wrist and left hand. Moves all four extremities in all modalities with 5/5 strength, including left elbow. GI: Normal bowel sounds, no tenderness to palpation, no masses appreciated. No rebound, guarding, or rigidity noted. 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 Psychiatric: Cooperative Constitutional Vital Signs, click to edit/add: Last Vital Signs Temp 97.8 F 02/23/24 13:19 Pulse 77 02/23/24 13:19 Resp 20 02/23/24 13:19 BP 173/61 H 02/23/24 13:19 Pulse Ox 96 02/23/24 13:19 O2 Del Method Room Air 02/23/24 13:19 Course Vital Signs Vital signs: Vital Signs Temperature 97.8 F 02/23/24 13:19 Pulse Rate 77 02/23/24 13:19 Respiratory Rate 20 02/23/24 13:19 Blood Pressure 173/61 H 02/23/24 13:19 Pulse Oximetry 96 02/23/24 13:19 Oxygen Delivery Method Room Air 02/23/24 13:19 Temperature 97.8 F 02/23/24 13:19 Pulse Rate 77 02/23/24 13:19 Respiratory Rate 20 02/23/24 13:19 Blood Pressure 173/61 H 02/23/24 13:19 Pulse Oximetry 96 02/23/24 13:19 Oxygen Delivery Method Room Air 02/23/24 13:19 MDM - Extremity Injury (Upper) MDM Narrative Medical decision making narrative: pt's tetanus is up to date. She was ordered to receive tylenol for pain and to get xrays of the left elbow. I also ordered the ED nurse to clean the left elbow and apply topical antibiotic ointment - bacitracin - to the wound and cover with a dry sterile dressing. Xrays showed some arthritic changes to the medial condyle of the left elbow and the radiologist described a possible fracture - but the patient has no tenderness there - her tenderness is along the lateral condyle. I discussed with the patient and her family and gave them a copy of the radiologist's reading - for now she will keep the wound bandaged and apply topical antibiotic ointment to it daily, with daily bandage changes. If the pain persists, she can get the left elbow re-xrayed or come to the ED or an urgent care for re-evaluation. The family and patient do not want to have a splint applied to the area out of concerns for the challenges it may offer the patient is performing ADLs. tylenol recommended for pain. Imaging Data xr elbow: Radiologist's impression: ITS Impressions Elbow X-Ray 02/23/24 13:50 IMPRESSION: Questionable linear lucency may be seen about the medial epicondyle. A subtle medial epicondyle fracture cannot be excluded. Small anterior joint effusion is seen. Electronically authenticated by: LONNIE LUNA Date: 02/23/2024 15:18 Discharge Plan Discharge Chief Complaint: Extremity Injury, Upper Clinical Impression: Abrasion of elbow, left, Contusion of elbow, left Patient Disposition: Home, Self-Care Time of Disposition Decision: 15:28 Prescriptions / Home Meds: No Action alprazolam 0.5 mg tablet 0.5 mg PO TID PRN (Reason: anxiety) amlodipine 10 mg tablet 10 mg PO DAILY atorvastatin 80 mg tablet 80 mg PO .QHS bupropion HCl 150 mg tablet extended release 24 hr 150 mg PO DAILY cholecalciferol (vitamin D3) 25 mcg (1,000 unit) tablet 25 mcg PO DAILY famotidine 40 mg tablet 40 mg PO DAILY furosemide 20 mg tablet 20 mg PO DAILY hydralazine 100 mg tablet 100 mg PO TID hydrocodone-acetaminophen 5-325 mg tablet 1 tab PO Q8H PRN (Reason: pain (scale score 7-10)) montelukast 10 mg tablet 10 mg PO .QHS nystatin [Klayesta] 100,000 unit/gram powder 1 applic TOPICAL TID pantoprazole 40 mg tablet,delayed release (DR/EC) 40 mg PO BID paroxetine HCl 40 mg tablet 40 mg PO DAILY Januvia 25 mg tablet 25 mg PO DAILY sucralfate 1 gram tablet 1 g PO .QHS temazepam 15 mg capsule 15 mg PO .QHS carvedilol 6.25 mg tablet 12.5 mg PO BID Qty: 0 0RF Print Language: Kyrgyz Instructions: Contusion in Adults (ED), Abrasion (ED) Referrals: Amador Lopez MD [Primary Care Provider] - 1 week
[2024-02-23] MEDS: ACETAMINOPHEN 500 MG TABLET 1000 MG PO (15:01)
[2024-02-23] MEDS: BACITRACIN 0.9 GM PACKET 1 PACKET TOPICAL (15:01)
== END 2024-02-23 16:02 | disposition home or self-care (01) ==
PROVIDERS: Emergency Provider Emergency Medicine; PCP Family Medicine
DX: S50.02XA Contusion of left elbow, initial encounter (principal); S50.312A Abrasion of left elbow, initial encounter; Z95.5 Presence of coronary angioplasty implant and graft; Z90.49 Acquired absence of other specified parts of digestive tract; W22.01XA Walked into wall, initial encounter
CPT/HCPCS: 73080; 99283

== ENCOUNTER 2024-03-05 16:25 | Outpatient (OUT) | payer MEDICARE, MEDICAID, SELFPAY ==
--- NOTE | 2024-03-05 | XR_ITS ---
The [place] [id number] Patient Name: RIVKA TURNER MRN: [id number] date: 1945 Sex: F Assigned Patient Location: LAB Current Patient Location: Accession/Order Number: [id number] Exam Date: 03/05/2024 17:22 Report Date: 03/06/2024 07:25 At the request of: ANTONINO ABDALLA Procedure: XR knee [place] 2V EXAMINATION: XR knee [place] 2V HISTORY: [place] knee pain COMPARISON: No relevant comparison available. FINDINGS: RIGHT FINDINGS: BONES: No acute fracture or dislocation. Mild tricompartment osteoarthropathy with marginal osteophyte formation SOFT TISSUES: Negative. No visible soft tissue swelling. OTHER: Vascular calcifications LEFT FINDINGS: BONES: No acute fracture or dislocation. Mild tricompartmental osteoarthropathy with marginal osteophyte formation SOFT TISSUES: Negative. No visible soft tissue swelling. OTHER: Vascular calcifications XR/XR knee [place] 2V IMPRESSION: Mild bilateral osteoarthritis Electronically authenticated by: CHRYSTAL LAUREANO Date: 03/06/2024 07:25
[2024-03-05 17:17] LABS: Basophils Percent Auto 0.4 % (0.2-2.0); Eosinophils Absolute Auto 0.2 10^3/uL (0.0-0.7); Eosinophils Percent Auto 1.8 % (0.9-7.0); Hematocrit 37.5 % (36.0-48.0); Immature Granulocytes Abs Auto 0.03 10^3/uL (0.00-0.03); Immature Granulocytes Pct Auto 0.3 % (0.0-0.5); Lymphocytes Percent Auto 11.2 % (20.5-60.0); Mean Corpuscular Hemoglobin 30.6 pg (26.7-34.0); Mean Corpuscular Volume 95.7 fL (81.0-99.0); Mean Platelet Volume 10.6 fL (9.5-13.5); Monocytes Absolute Auto 0.7 10^3/uL (0.3-0.8); Monocytes Percent Auto 7.9 % (1.7-12.0); Neutrophils Percent Auto 78.4 % (43.0-75.0); Platelet Count 233 10^3/uL (150-450); Red Blood Count 3.92 10^6/uL (4.20-5.40); Red Cell Distribution Width 12.4 % (11.0-15.0)
[2024-03-05 17:27] LABS: Estimated Average Glucose 226 mg/dL; Glycohemoglobin A1C 9.5 % (4.5-6.2)
[2024-03-05 17:41] LABS: Alanine Aminotransferase 25 U/L (14-59); Albumin Globulin Ratio 0.8; Alkaline Phosphatase 78 U/L (46-116); Anion Gap 13.3; Aspartate Amino Transferase 16 U/L (15-37); BUN Creatinine Ratio 14.4; Bilirubin Direct 0.1 mg/dL (0.0-0.2); Bilirubin Total 0.4 mg/dL (0.2-1.0); Calcium 9.8 mg/dL (8.5-10.1); Carbon Dioxide 29.2 mmol/L (21.0-32.0); Chloride 103 mmol/L (98-107); Cholesterol 164 mg/dL (<=200); Estimated GFR (African America 32 (>=60 mL/min/1.73m^2); Estimated GFR (Non-African Ame 26 (>=60 mL/min/1.73m^2); Globulin 3.6 g/dL; Glucose 352 mg/dL (74-106); HDL Cholesterol 81 mg/dL (40-60); Potassium 4.5 mmol/L (3.5-5.1); Sodium 141 mmol/L (136-145); Thyroid Stimulating Hormone 1.548 uIU/mL (0.358-3.740); Total Protein 6.6 g/dL (6.4-8.2); Triglycerides 101 mg/dL (<=150); VLDL CHOLESTEROL 20.2 mg/dL
[2024-03-05 22:16] LABS: Microalbum Creatinine Ratio Ur 335.7 mg/g (0.0-29.9); Microalbumin Urine Random 18.5 mg/dL (<=30.0)
== END 2024-03-05 16:26 | disposition home or self-care (01) ==
LOC: LAB 16:26
PROVIDERS: PCP Family Medicine; Visit Provider Family Medicine
DX: M17.0 Bilateral primary osteoarthritis of knee (principal); E11.65 Type 2 diabetes mellitus with hyperglycemia; N18.32 Chronic kidney disease, stage 3b; Z79.899 Other long term (current) drug therapy; E78.5 Hyperlipidemia, unspecified; E66.811 Obesity, class 1; E66.09 Other obesity due to excess calories; Z68.33 Body mass index [BMI] 33.0-33.9, adult
CPT/HCPCS: 36415; 73560; 80048; 80061; 80076; 82043; 82570; 83036; 84443; 85025

== ENCOUNTER 2024-04-02 13:41 | Inpatient (IN) | payer MEDICARE, MEDICAID, SELFPAY ==
[2024-04-02] VITALS (9 sets, daily range): BP systolic 128–183; BP diastolic 53–95; PULSE 57–73; TEMP 36.7–36.8; O2SAT 92–97; BMI 30.9; BMI 31.1
--- NOTE | 2024-04-02 13:30 | PC.NURSE ---
FSBS result of 383
[2024-04-02 13:33] LABS: Glucometer 383 mg/dL (74-106)
--- NOTE | 2024-04-02 13:33 | PC.NURSE ---
Here for elevated blood sugar. Denies any pain or discomfort.
[2024-04-02] MEDS: 0.9 % SODIUM CHLORIDE 1,000 ML 1000 ML IV (13:41)
[2024-04-02 13:50] LABS: Basophils Percent Auto 0.5 % (0.2-2.0); Eosinophils Absolute Auto 0.2 10^3/uL (0.0-0.7); Eosinophils Percent Auto 2.1 % (0.9-7.0); Hematocrit 37.2 % (36.0-48.0); Hemoglobin 12.3 g/dL (12.0-16.0); Immature Granulocytes Abs Auto 0.02 10^3/uL (0.00-0.03); Immature Granulocytes Pct Auto 0.3 % (0.0-0.5); Lymphocytes Percent Auto 13.3 % (20.5-60.0); Mean Corpuscular HGB Conc 33.1 g/dL (29.9-35.2); Mean Corpuscular Hemoglobin 31.1 pg (26.7-34.0); Mean Corpuscular Volume 94.2 fL (81.0-99.0); Mean Platelet Volume 11.2 fL (9.5-13.5); Monocytes Absolute Auto 0.7 10^3/uL (0.3-0.8); Monocytes Percent Auto 9.6 % (1.7-12.0); Neutrophils Absolute Auto 5.6 10^3/uL (1.4-6.5); Neutrophils Percent Auto 74.2 % (43.0-75.0); Platelet Count 230 10^3/uL (150-450); Red Blood Count 3.95 10^6/uL (4.20-5.40); Red Cell Distribution Width 12.2 % (11.0-15.0); White Blood Count 7.6 10^3/uL (4.0-11.0)
[2024-04-02 14:01] LABS: Alanine Aminotransferase 33 U/L (14-59); Albumin Globulin Ratio 0.8; Albumin Level 3.1 g/dL (3.4-5.0); Alkaline Phosphatase 82 U/L (46-116); Anion Gap 11.7; Aspartate Amino Transferase 14 U/L (15-37); BUN Creatinine Ratio 15.6; Bilirubin Total 0.5 mg/dL (0.2-1.0); Calcium 10.1 mg/dL (8.5-10.1); Carbon Dioxide 28.7 mmol/L (21.0-32.0); Chloride 97 mmol/L (98-107); Estimated GFR (African America 27 (>=60 mL/min/1.73m^2); Estimated GFR (Non-African Ame 23 (>=60 mL/min/1.73m^2); Glucose 407 mg/dL (74-106); Potassium 4.4 mmol/L (3.5-5.1); Sodium 133 mmol/L (136-145); Total Protein 7.1 g/dL (6.4-8.2)
[2024-04-02 14:10] LABS: Influenza Virus A Antigen Negative; Influenza Virus B Antigen Negative; Internal Control Within Normal Limits; SARS-CoV-2 Ag NEGATIVE (NEGATIVE)
--- NOTE | 2024-04-02 14:33 | ED.GENADUL1 ---
HPI HPI - General Adult General Chief complaint: Recheck/Abnormal Lab/Rx Stated complaint: HYPERGLYCEMIA Time Seen by Provider: 04/02/24 13:41 Source: patient Mode of arrival: ambulance History of Present Illness HPI narrative: Patient presents to ED for weakness and evaluation of high blood sugar. Patient is a known diabetic and her blood sugar was reading elevated at home. Home health told her to come in for further evaluation. They called EMS who brought her in. Patient states the past couple of days she has had increased weakness and difficulty walking. She said that he tried to help her walk today and her legs just kind of gave out. She did not fall but she could not stand or walk. She has noted increased urinary frequency but no pain. She does suffer with incontinence. No lower abdominal pain no back pain. She denies any cough or shortness of breath. Patient is alert and oriented resting comfortably in the bed. She did take her medication this morning however her blood sugar was still running high. She denies fever Related Data Home Medications ?Medication ?Instructions ?Recorded ?Confirmed alprazolam 0.5 mg tablet 0.5 mg PO TID PRN anxiety 11/18/23 04/02/24 amlodipine 10 mg tablet 10 mg PO DAILY 11/18/23 04/02/24 atorvastatin 80 mg tablet 80 mg PO .QHS 11/18/23 04/02/24 bupropion HCl 150 mg 24 hr tablet, 150 mg PO DAILY 11/18/23 04/02/24 extended release cholecalciferol (vitamin D3) 25 25 mcg PO DAILY 11/18/23 04/02/24 mcg (1,000 unit) tablet famotidine 40 mg tablet 40 mg PO DAILY 11/18/23 04/02/24 furosemide 20 mg tablet 20 mg PO DAILY 11/18/23 04/02/24 hydralazine 100 mg tablet 100 mg PO TID 11/18/23 04/02/24 hydrocodone 5 mg-acetaminophen 325 1 tab PO Q8H PRN pain (scale score 11/18/23 04/02/24 mg tablet 7-10) montelukast 10 mg tablet 10 mg PO .QHS 11/18/23 04/02/24 nystatin 100,000 unit/gram topical 1 applic topical TID 11/18/23 04/02/24 powder (Klayesta) pantoprazole 40 mg tablet,delayed 40 mg PO BID 11/18/23 04/02/24 release paroxetine HCl 40 mg tablet 40 mg PO DAILY 11/18/23 04/02/24 sitagliptin phosphate 25 mg tablet 25 mg PO DAILY 11/18/23 04/02/24 (Shanika) sucralfate 1 gram tablet 1 g PO .QHS 11/18/23 04/02/24 temazepam 15 mg capsule 15 mg PO .QHS 11/18/23 04/02/24 carvedilol 25 mg tablet 25 mg PO Q12H 04/02/24 04/02/24 clopidogrel 75 mg tablet 75 mg PO DAILY 04/02/24 04/02/24 Previous Rx's ?Medication ?Instructions ?Recorded carvedilol 6.25 mg tablet 12.5 mg (2 x 6.25 mg) PO BID #0 11/19/23 tabs Allergies Allergy/AdvReac Type Severity Reaction Status Date / Time cyclobenzaprine (From Allergy Severe Rash Verified 04/02/24 13:30 Flexeril) ethinyl estradiol (From Allergy Severe Swelling Verified 04/02/24 13:30 [place] (28)) of Lip/Tongue/Throat exenatide (From [place]) Allergy Severe Rash Verified 04/02/24 13:30 Iodinated Contrast Media Allergy Severe Rash Verified 04/02/24 13:30 levonorgestrel (From [place] Allergy Severe Swelling Verified 04/02/24 13:30 (28)) of Lip/Tongue/Throat Penicillins Allergy Severe Rash Verified 04/02/24 13:30 prochlorperazine (From Allergy Severe Confusion Verified 04/02/24 13:30 Compazine) clindamycin (From Cleocin) AdvReac Severe esophagus Verified 04/02/24 13:30 spasms doxycycline AdvReac Severe Nausea Verified 02/23/24 13:18 levofloxacin AdvReac Severe Nausea Verified 04/02/24 13:30 ticagrelor (From Brilinta) AdvReac Severe Vomiting Verified 04/02/24 13:30 trazodone AdvReac Severe Nausea Verified 04/02/24 13:30 Opioid HPI Opioid Management Most Recent Opioid Data: Last Pain Scale 3 11/19/23 10:40 11/19/23 Last ORT Total Score 0 11/18/23 13:18 11/18/23 Last ORT Risk Category Low Risk 11/18/23 13:18 11/18/23 Review of Systems ROS Status of ROS 10 or more systems reviewed and unremarkable except as noted in history and below [facility] Medical History (Updated 04/02/24 @ 16:56 by Cookie Chavez DO) UTI (urinary tract infection) ?N39.0 - Urinary tract infection, site not specified (ICD-10) Elevated troponin ?R79.89 - Other specified abnormal findings of blood chemistry (ICD-10) Generalized weakness ?R53.1 - Weakness (ICD-10) Fall ?W19.XXXA - Unspecified fall, initial encounter (ICD-10) HTN (hypertension) ?I10 - Essential (primary) hypertension (ICD-10) HLD (hyperlipidemia) ?E78.5 - Hyperlipidemia, unspecified (ICD-10) CAD (coronary artery disease) ?I25.10 - Atherosclerotic heart disease of [place] coronary artery without angina pectoris (ICD-10) History of heart attack ?I25.2 - Old myocardial infarction (ICD-10) History of stroke ?Z86.73 - Personal history of transient ischemic attack (TIA), and cerebral infarction without residual deficits (ICD-10) Diabetes ?E11.9 - Type 2 diabetes mellitus without complications (ICD-10) Surgical History (Updated 11/18/23 @ 12:47 by Leona Mario LPN) History of heart artery stent ?Z95.5 - Presence of coronary angioplasty implant and graft (ICD-10) Hx of cholecystectomy ?Z90.49 - Acquired absence of other specified parts of digestive tract (ICD-10) H/O hernia repair ?Z98.890 - Other specified postprocedural states (ICD-10) ?Z87.19 - Personal history of other diseases of the digestive system (ICD-10) Family History (Updated 11/18/23 @ 12:46 by Leona Mario LPN) Mother Family history of COPD (chronic obstructive pulmonary disease) Family history of cancer Family history of diabetes mellitus Father Family history of hypertension Social History (Updated 11/18/23 @ 12:49 by Leona Mario LPN) Within the past year, how often did you have a drink containing alcohol: never Within the past year, how often did you have six or more drinks on one occasion: never Score interpretation: A score less than 3 is consistent with normal alcohol consumption. Smoking status: Never smoker Second hand tobacco smoke exposure: No Non-prescribed substance use: denies use Previous occupational history: retired Known occupational exposures/hazards: No Highest level of school completed/degree received: high school graduate Are you now , , , , never or living with a partner: In a typical week, how many times do you talk on the telephone with family, friends, or neighbors: 3 or more times per week How often do you get together with friends or relatives: 3 or more times per week How often do you attend holiness or faith services: never Do you belong to any clubs or organizations such as holiness groups unions, [employer] or athletic groups, or school groups: no Total score: 1 Score interpretation: A score of less than or equal to 1 indicates the most socially isolated. Little interest or pleasure in doing things: not at all Feeling down, depressed, or hopeless: not at all Feel stressed/tense/nervous/anxious/difficulty sleeping: not at all Due to disability, difficulty making decisions: No Do you think of yourself as: straight/heterosexual Gender Identity: female Exam Narrative Exam Narrative: Time Seen: [] Vital Signs: [Per nurse's notes.] General: [Alert] Skin: [Warm, dry, no rash.] Head: [Normocephalic, atraumatic.] Neck: [Supple, trachea midline.] Eye: [Pupils are equal, round and reactive to light, extraocular movements are intact, normal conjunctiva.] Ears, nose, mouth and throat: oral mucosa slightly dry Cardiovascular: [Regular rate and rhythm, no murmur.] Respiratory: [Lungs are clear to auscultation, respirations are non-labored, breath sounds are equal.] Chest wall: [No tenderness, no deformity.] Gastrointestinal: [Soft, nontender, non distended, normal bowel sounds.] MSK: 5 out of 5 muscle strength x 4 extremities no calf pain or edema Lymphatics: [No lymphadenopathy.] Psychiatric: [Cooperative, appropriate mood & affect.] Neurological: [Alert and oriented to person, place, time, and situation, no focal neurological deficit observed.] Constitutional Vital Signs, click to edit/add: Last Vital Signs Temp 98.2 F 04/02/24 13:30 Pulse 73 04/02/24 13:30 Resp 20 04/02/24 13:30 BP 160/55 H 04/02/24 15:00 Pulse Ox 93 L 04/02/24 15:00 O2 Del Method Room Air 04/02/24 13:30 Course Vital Signs Vital signs: Vital Signs Blood Pressure 174/95 H 04/02/24 13:29 Temperature 98.2 F 04/02/24 13:30 Pulse Rate 73 04/02/24 13:30 Respiratory Rate 20 04/02/24 13:30 Blood Pressure 160/55 H 04/02/24 15:00 Pulse Oximetry 93 L 04/02/24 15:00 Oxygen Delivery Method Room Air 04/02/24 13:30 Medical Decision Making MDM Narrative Medical decision making narrative: After IV fluids patient's blood sugar remained in the 300s. I then gave her 10 units of insulin subcu. Patient did report the weakness and inability to ambulate at home over the past couple days which was worse today. Patient does have a urinary tract infection. This is most likely contributing to the difficult to control blood sugars as well as the weakness. Patient will be admitted for IV antibiotics IV fluids and treatment of the hyperglycemia. Patient is comfortable with care plan for admission and I spoke to Dr. Underwood who will accept the patient. Differential Diagnosis Differential Diagnosis: UTI, hyperglycemia weakness Lab Data Lab results reviewed: Yes I reviewed the patient's lab results Labs: Lab Results 04/02/24 04/02/24 04/02/24 Range/Units 13:30 13:35 13:48 WBC 7.6 (4.0-11.0) 10^3/uL RBC 3.95 L (4.20-5.40) 10^6/uL Hgb 12.3 (12.0-16.0) g/dL Hct 37.2 (36.0-48.0) % MCV 94.2 (81.0-99.0) fL MCH 31.1 (26.7-34.0) pg MCHC 33.1 (29.9-35.2) g/dL RDW 12.2 (11.0-15.0) % Plt Count 230 (150-450) 10^3/uL MPV 11.2 (9.5-13.5) fL Neut % (Auto) 74.2 (43.0-75.0) % Lymph % (Auto) 13.3 L (20.5-60.0) % [place] % (Auto) 9.6 (1.7-12.0) % Eos % (Auto) 2.1 (0.9-7.0) % Baso % (Auto) 0.5 (0.2-2.0) % Neut # (Auto) 5.6 (1.4-6.5) 10^3/uL Lymph # (Auto) 1.0 L (1.2-3.8) 10^3/uL [place] # (Auto) 0.7 (0.3-0.8) 10^3/uL Eos # (Auto) 0.2 (0.0-0.7) 10^3/uL Baso # (Auto) 0.0 (0.0-0.1) 10^3/uL Abs Immat Gran (auto) 0.02 (0.00-0.03) 10^3/uL Imm/Tot Granulo (auto) 0.3 (0.0-0.5) % Sodium 133 L (136-145) mmol/L Potassium 4.4 (3.5-5.1) mmol/L Chloride 97 L (98-107) mmol/L Carbon Dioxide 28.7 (21.0-32.0) mmol/L Anion Gap 11.7 BUN 33.0 H (7.0-18.0) mg/dL Creatinine 2.12 H (0.55-1.02) mg/dL Est GFR ( Amer) 27 L (>=60 mL/min/1.73m^2) Est GFR (Non-Af Amer) 23 L (>=60 mL/min/1.73m^2) BUN/Creatinine Ratio 15.6 Glucose 407 H (74-106) mg/dL Calcium 10.1 (8.5-10.1) mg/dL Total Bilirubin 0.5 (0.2-1.0) mg/dL AST 14 L (15-37) U/L ALT 33 (14-59) U/L Alkaline Phosphatase 82 (46-116) U/L Total Protein 7.1 (6.4-8.2) g/dL Albumin 3.1 L (3.4-5.0) g/dL Globulin 4.0 g/dL Albumin/Globulin Ratio 0.8 Urine Color (YELLOW) Urine Clarity (CLEAR) Urine pH (5.0-9.0) Ur Specific [place] (1.005-1.025) Urine Protein (NEG/TRACE) mg/dL Urine Glucose (UA) (NEGATIVE) mg/dL Urine Ketones (NEGATIVE) mg/dL Urine Occult Blood (NEGATIVE) Urine Nitrite (NEGATIVE) Urine Bilirubin (NEGATIVE) Urine Urobilinogen (0.2-1.0) EU/dL Ur Leukocyte Esterase (NEGATIVE) Urine RBC (0-2) #/HPF Urine WBC (NONE SEEN) #/HPF Ur Squamous Epith Cells (NONE/RARE) #/LPF Urine Crystals (None Seen) #/HPF Urine Bacteria (NONE SEEN) #/HPF Urine Casts (NONE SEEN) #/LPF Urine Mucus (NONE SEEN) Urine Yeast (NONE SEEN) Ur Culture Indicated? Influenza Type A Ag Negative Influenza Type B Ag Negative SARS-CoV-2 Ag (CV2AG) Negative (NEGATIVE) POC Glucose 383 H (74-106) mg/dL 04/02/24 04/02/24 Range/Units 15:22 15:44 WBC (4.0-11.0) 10^3/uL RBC (4.20-5.40) 10^6/uL Hgb (12.0-16.0) g/dL Hct (36.0-48.0) % MCV (81.0-99.0) fL MCH (26.7-34.0) pg MCHC (29.9-35.2) g/dL RDW (11.0-15.0) % Plt Count (150-450) 10^3/uL MPV (9.5-13.5) fL Neut % (Auto) (43.0-75.0) % Lymph % (Auto) (20.5-60.0) % [place] % (Auto) (1.7-12.0) % Eos % (Auto) (0.9-7.0) % Baso % (Auto) (0.2-2.0) % Neut # (Auto) (1.4-6.5) 10^3/uL Lymph # (Auto) (1.2-3.8) 10^3/uL [place] # (Auto) (0.3-0.8) 10^3/uL Eos # (Auto) (0.0-0.7) 10^3/uL Baso # (Auto) (0.0-0.1) 10^3/uL Abs Immat Gran (auto) (0.00-0.03) 10^3/uL Imm/Tot Granulo (auto) (0.0-0.5) % Sodium (136-145) mmol/L Potassium (3.5-5.1) mmol/L Chloride (98-107) mmol/L Carbon Dioxide (21.0-32.0) mmol/L Anion Gap BUN (7.0-18.0) mg/dL Creatinine (0.55-1.02) mg/dL Est GFR ( Amer) (>=60 mL/min/1.73m^2) Est GFR (Non-Af Amer) (>=60 mL/min/1.73m^2) BUN/Creatinine Ratio Glucose (74-106) mg/dL Calcium (8.5-10.1) mg/dL Total Bilirubin (0.2-1.0) mg/dL AST (15-37) U/L ALT (14-59) U/L Alkaline Phosphatase (46-116) U/L Total Protein (6.4-8.2) g/dL Albumin (3.4-5.0) g/dL Globulin g/dL Albumin/Globulin Ratio Urine Color Lt. yellow (YELLOW) Urine Clarity Clear (CLEAR) Urine pH 6.0 (5.0-9.0) Ur Specific [place] 1.010 (1.005-1.025) Urine Protein 100 A (NEG/TRACE) mg/dL Urine Glucose (UA) 250 A (NEGATIVE) mg/dL Urine Ketones Negative (NEGATIVE) mg/dL Urine Occult Blood Negative (NEGATIVE) Urine Nitrite Negative (NEGATIVE) Urine Bilirubin Negative (NEGATIVE) Urine Urobilinogen 0.2 (0.2-1.0) EU/dL Ur Leukocyte Esterase Moderate A (NEGATIVE) Urine RBC 0-2 (0-2) #/HPF Urine WBC 50-75 A (NONE SEEN) #/HPF Ur Squamous Epith Cells Few A (NONE/RARE) #/LPF Urine Crystals None seen (None Seen) #/HPF Urine Bacteria Moderate A (NONE SEEN) #/HPF Urine Casts None seen (NONE SEEN) #/LPF Urine Mucus None seen (NONE SEEN) Urine Yeast Seen A (NONE SEEN) Ur Culture Indicated? [facility] Influenza Type A Ag Influenza Type B Ag SARS-CoV-2 Ag (CV2AG) (NEGATIVE) POC Glucose 306 H (74-106) mg/dL Discharge Plan Discharge Chief Complaint: Recheck/Abnormal Lab/Rx Clinical Impression: Weakness, Acute UTI, Acute hyperglycemia Patient Disposition: Admitted As Inpatient Time of Disposition Decision: 16:56 Condition: Fair Prescriptions / Home Meds: No Action alprazolam 0.5 mg tablet 0.5 mg PO TID PRN (Reason: anxiety) amlodipine 10 mg tablet 10 mg PO DAILY atorvastatin 80 mg tablet 80 mg PO .QHS bupropion HCl 150 mg tablet extended release 24 hr 150 mg PO DAILY cholecalciferol (vitamin D3) 25 mcg (1,000 unit) tablet 25 mcg PO DAILY famotidine 40 mg tablet 40 mg PO DAILY furosemide 20 mg tablet 20 mg PO DAILY hydralazine 100 mg tablet 100 mg PO TID hydrocodone-acetaminophen 5-325 mg tablet 1 tab PO Q8H PRN (Reason: pain (scale score 7-10)) montelukast 10 mg tablet 10 mg PO .QHS nystatin [Klayesta] 100,000 unit/gram powder 1 applic TOPICAL TID pantoprazole 40 mg tablet,delayed release (DR/EC) 40 mg PO BID paroxetine HCl 40 mg tablet 40 mg PO DAILY Januvia 25 mg tablet 25 mg PO DAILY sucralfate 1 gram tablet 1 g PO .QHS temazepam 15 mg capsule 15 mg PO .QHS carvedilol 6.25 mg tablet 12.5 mg PO BID Qty: 0 0RF carvedilol 25 mg tablet 25 mg PO Q12H clopidogrel 75 mg tablet 75 mg PO DAILY Print Language: Citizen [place] Referrals: Amador Lopez MD [Primary Care Provider] - 1 week
[2024-04-02 15:35] LABS: Bilirubin Urine NEGATIVE (NEGATIVE); Blood Urine NEGATIVE (NEGATIVE); Clarity Urine CLEAR (CLEAR); Color Urine LT. YELLOW (YELLOW); Glucose Urine UA 250 mg/dL (NEGATIVE); Ketones Urine NEGATIVE (NEGATIVE); Leukocyte Esterase Urine MODERATE (NEGATIVE); Nitrite Urine NEGATIVE (NEGATIVE); Protein Urine 100 mg/dL (NEG/TRACE); Urine Microscopic Indicated YES; Urobilinogen Urine 0.2 EU/dL (0.2-1.0)
[2024-04-02 15:45] LABS: Bacteria Urine MODERATE #/HPF (NONE SEEN); Cast Seen? NONE SEEN #/LPF (NONE SEEN); Crystals Seen? None Seen #/HPF (None Seen); Mucus Urine NONE SEEN (NONE SEEN); RBC Urine 0-2 #/HPF (0-2); Squamous Epithelial Cell Urine FEW #/LPF (NONE/RARE); WBC Urine 50-75 #/HPF (NONE SEEN)
[2024-04-02 15:45] LABS: Glucometer 306 mg/dL (74-106)
[2024-04-02 15:46] LABS: Urine Culture Indicated LABCORP
[2024-04-02] MEDS: CEFTRIAXONE 1,000 MG in 0.9 % SODIUM CHLORIDE 50 ML 100 MG IV (15:56)
[2024-04-02] MEDS: INSULIN REGULAR, HUMAN (100 UNIT/ML) 10 ML MDV 10 UNIT SUBQ (15:56)
--- OUTSIDE RECORDS SUMMARY | 2024-04-02 18:00 | XMS_ITS | CCD ---
Author Organization [facility] Team Providers Care Area Manager Name Role Phone CHIDI MELLO Unavailable Unavailable SVEN WILKINS Unavailable Unava ilable AL-HOURTAYLOR, KELLI Admitting Unavailable AMEE-ELVIRA, KELLI Attending Unavailable AMADOR ABDALLA Primary Care Unavailable CHIDI LEWIS Referring Unavailable Unavailable Primary Care Provider UnavailMD Amador Melissa Primary Care Provider [phone] MD Xander Hammer Admit Provider SHAHNAZ Pittman Other Provider Unavailable DO Gen Bolivar Other Provider MD Wil Domínguez Other Provider MD Zafar Luu Other Provider MD Isabel Beckwith Other Provider MD Rufus Sauceda Other Provider ARIEL Resendiz Other Provider MD Latosha Figueroa Other Provider MD Dinora Haynes Other Provider MD Rahul Hi Other Provider MD Rusty Amor Attending Provider [phone] PROVIDER, UNKNOWN Attending Unavailable PROVIDER, UNKNOWN Admitting Unavailable Unavailable Unavailable Amador Abdalla Primary Care Unavailable Elba Pittman Consulting Unavailable Al Xander Duarte Admitting Unavailab Rusty Ontiveros Attending Unavailable Gen Bolivar Consulting Unavailable Wil Domínguez Consulting Unavailable Zafar Luu Consulting Unavail able Trabmagnus, Isabel Consulting Unavailable O'Matthisa, Rufus Consulting Unavailab alverto Kaur, Sandra Zuniga Consulting Unavailable Figueroa, Latosha Consulting Unavailable Dallas, Dinora Najeeb Consulting Unavailab le Kolton, Tarek Consulting Unavailable NADERER, DR AMADOR Arcos [...] Admitting Unavailable FAWWAD, GREGORIO H Consulting Unavailable BACHRACH, ANA PAULA Consulting Unavailable UNLU, SAI Consulting Unavailable NADERER, DR AMADOR Arcos Primary Care Unavailable HOY ., DR LAU Consulting Unavailable HOY ., DR LAU Attending Unavailable HOY ., DR LAU Admitting Unavailable PAY ., DR REGAN Consulting Unavailable GRECHNY ., VIGNESH TSANG Consulting Unavailabl e POLICARO, NASRIN Consulting Unavailable TRENTON COLLINS Consulting Unavailable TRENTON COLLINS Attending Unavailable TRENTON COLLINS Admitting Unavailable NADERER, DR AMADOR Arcos Primary [...] Primary Care Unavailable POLICARO, NASRIN Consulting Unavailable CARMINA NAVA Attending Unavailable MOUKARBCAROLINA LEIGH Attending Unavailable CHRISTOPHER GALICIA Attending Unavailable Amador Abdalla MD Primary Care Provider [phone] Carmina June Unavailable [phone] Miguel Blank MA Unavailable Unavailable NADERER, AMADOR Attending Unavailable FRANKY, TURNER Arcos Attending Unavailable NADERER, AMADOR Attending Unavailable BROWN, TURNER Arcos Attending Unavailable NADERECrystal, AMADOR Attending Unavailable NADERER, AMADOR Referring Unavailable NADERER, AMADOR Primary Care Unavailable Allergies Allergy Classification Reported Allergen(s) Allergy Type Date of Onset Reaction(s) Facility Contrast Media (1 source) Contrast media; Translations: [DYE] Substance Allergy 06-03-19 [facility] Repository cyclobenzaprine (1 source) cyclobenzaprine; Translations: [CYCLOBENZAPRINE] Drug Allergy 12-12-19 13 [facility] Repository Doxycycline (1 source) Doxycycline; Translations: [DOXYCYCLINE] Drug Allergy 12-22-19 [facility] Repository exenatide (1 source) exenatide; Translations: [EXENATIDE] Drug Allergy 12-28-19 [facility] Repository Lincosamides (antibiotic) (1 source) Clindamycin; Translations: [CLINDAMYCIN] Drug Allergy 05-27-19 [facility] Repository Opioid Agonists (1 source) Codeine; Translations: [CODEINE] Drug Allergy 12-28-19 [facility] Repository Penicillins (antibiotic) (1 source) Penicillins; Translations: [PENICILLINS] Drug Allergy 12-12-19 13 [facility] Repository Prochlorperazine (1 source) Prochlorperazine; Translations: [PROCHLORPERAZINE] Drug Allergy 12-12-19 13 [facility] Repository Serotonin Reuptake Inhibitors (SSRIs) (1 source) traZODone; Translations: [TRAZODONE] Drug Allergy 12-19-19 [facility] Repository Sucralfate (1 source) Sucralfate; Translations: [SUCRALFATE] Drug Allergy 12-22-19 [facility] Repository Ticagrelor (1 source) Ticagrelor; Translations: [TICAGRELOR] Drug Allergy 06-03-19 [facility] Repository Unclassified (1 source) OTHER; Translations: [OTHER] Propensity to adverse reactions (disorder) 12-12-19 13 [facility] Repository (4 sources) Clindamycin Drug Allergy 04-05-19 16 Difficulty Swallowing [facility] Rep[facility] (1 source) Codeine Drug Allergy 12-31-19 09 [facility] Rep[facility] (1 source) cyclobenzaprine Drug Allergy 12-31-19 09 [facility] Rep[facility] (3 sources) exenatide Drug Allergy 08-26-19 17 [facility] Rep[facility] (3 sources) Penicillins Drug allergy (disorder) 12-31-19 09 Itching [facility] Rep[facility] (1 source) Prochlorperazine Drug Allergy 12-31-19 09 [facility] Rep[facility] (2 sources) Iodinated Contrast Media - IV Dye Drug allergy (disorder) 12-31-19 09 [facility] Rep[facility] (1 source) trival; Translations: [trival] Propensity to adverse reactions (disorder) 12-17-19 13 [facility] Rep[facility] (4 sources) Amoxicillin; Translations: [amoxicillin] Drug Allergy 06-25-19 22 Unknown Reaction [facility] (20 sources) cyclobenzaprine; Translations: [cyclobenzaprine] Drug Allergy 12-12-19 13 Itching, Hives, Rash [facility] (20 sources) Doxycycline; Translations: [doxycycline] Drug Allergy 12-22-19 Diarrhea [facility] (20 sources) exenatide; Translations: [exenatide] Drug Allergy 12-28-19 13 Nausea Only, Rash [facility] (20 sources) Prochlorperazine; Translations: [prochlorperazine] Drug Allergy 06-25-19 22 Cramping of the Muscles [facility] (20 sources) Sucralfate; Translations: [sucralfate] Drug Allergy 12-22-19 20 Other [facility] (20 sources) traZODone; Translations: [trazodone] Drug Allergy 12-19-19 20 Nausea Only, GI intolerance [facility] (19 sources) Iodinated Contrast Media; Translations: [Iodinated Contrast Media] Allergy [facility]-20 [facility] (2 sources) Clindamycin; Translations: [facility]ind[facility]] [facility] Work Phone: (2 sources) Penicillins; Translations: [Penicillins] Allergy to drug (finding) [facility] Work Phone: (1 source) Clindamycin Drug Allergy 06-25-19 22 [facility] Rep[facility] (1 source) Penicillins Drug allergy (disorder) 06-25-19 [facility] (1 source) Clindamycin Drug Allergy [facility] Rep[facility] (1 source) cyclobenzaprine Drug Allergy [facility] (1 source) Levamisole Drug Allergy 12-03-19 21 [facility] (1 source) liraglutide Drug Allergy 07-16-19 22 [facility] (1 source) Prochlorperazine Drug Allergy [facility] (2 sources) Trivora (28) Drug allergy (disorder) [facility] (1 source) Misc-Drug Drug allergy (disorder) [facility] (16 sources) Codeine Drug Allergy 12-28-19 22 Hives [facility] (16 sources) levoFLOXacin Drug Allergy 06-03-19 23 [facility] (16 sources) liraglutide Drug Allergy 05-17-19 23 Nausea Only [facility] (16 sources) Penicillins Drug Allergy 10-23-20 13 Itching, Hives, Rash [facility] (16 sources) Promethazine Drug Allergy 05-17-[address] [facility] (16 sources) Ticagrelor Propensity to adverse reactions 06-03-[address] [facility] Medications Current Medications Medication Drug Class(es) Dates Sig (Normalized) Sig (Original) acetaminophen 325 mg / HYDROcodone bitartrate 5 mg oral tablet (20 sources) Opioid Agonist Start: 02-25-2024 End: 03-26-2024 take 1 tablet by mouth four times daily as needed for pain HYDROcodone-acetamin ophen ([place]) 5-325 MG tablet Indications: Primary osteoarthritis of both knees Take 1 tablet by mouth 4 (four) times a day as needed for severe pain 90 tablet 02/25/2024 03/26/2024 Active Start: 09-24-2023 End: 02-25-2024 take 1 tablet by mouth three times daily as needed for pain HYDROcodone-acetaminophen ([place]) 5-325 MG tablet Indications: Primary osteoarthritis of both knees Take 1 tablet by mouth 3 (three) times a day as needed for severe pain 90 tablet 01/23/2024 02/25/2024 Discontinued Start: 06-24-2021 take 1 tablet by raheem th every eight hours Hydrocodone-Acetaminophen Active 1 TAB P O Q8H June 24, 2021 4:16am ALPRAZolam 0.5 mg oral tablet (17 sources) Benzodiazepine Start: 10-04-2023 take 1 tablet by mouth three times daily as needed ALPRAZolam (Xanax) 0.5 MG tablet Indications: Generalized anxiety disorder (CMS/HCC) TAKE 1 TABLET BY MOUTH THREE TIMES A DAY NEEDED 90 tablet 10/04/2023 Active Start: 06-24-2021 take 0.5 mg by mouth three times daily Alprazolam Active 0.5 MG PO Three times daily June 24, 2021 4:16am amLODIPine 10 mg oral tablet (17 sources) Dihydropyridine Calcium Channel Tung Start: 02-21-2024 take 1 tablet by mouth once daily amLODIPine (Norvasc) 10 MG tablet Indications: Coronary artery disease due to lipid rich plaque (CMS/HCC) TAKE 1 TABLET BY MOUTH EVERY DAY 90 tablet 3 02/21/2024 Active Start: 06-24-2021 take 10 mg by mouth once daily Amlodipine Active 10 MG PO Daily June 24, 2021 4:16am aspirin 81 mg oral tablet (17 sources) Platelet Aggregation Inhibitor, Nonsteroidal Anti-inflammatory Drug Start: 06-24-2021 take 81 mg by mouth once daily Aspirin Active 81 MG PO Daily June 24, 2021 4:16am aspirin 81 MG ch ewable tablet Chew 81 mg in the morning. Active atorvastatin 80 mg oral tablet (18 sources) HMG-CoA Reductase Inhibitor Start: 05-18-2023 take 1 tablet by mouth once daily at bedtime atorvastatin (Lipitor) 80 MG tablet Indications: Dyslipidemia (CMS/HCC) TAKE 1 TABLET BY MOUTH EVERYDAY AT BEDTIME 90 tablet 3 05/18/2023 Active Start: 06-24-2021 take 80 mg by mouth at bedtime Atorvastatin Active 80 MG PO Bedtime 30 June 24, 2021 4:10pm Start: 06-24-2021 End: 06-25-2021 take 40 mg by mouth at bedtime Atorvastatin Discontinu ed 40 MG PO Bedtime June 24, 2021 4:16am June 25, 2021 11:27am Blood Glucose Monitoring Suppl (ONE TOUCH ULTRA 2) w/Device kit (1 source) Start: 03-20-2024 Blood Glucose Monitoring Suppl (ONE TOUCH ULTRA 2) w/Device kit Indications: Type 2 diabetes mellitus with hyperglycemia, without long-term current use of insulin (CMS/HCC) 1 each Daily 1 kit 03/20/2024 Active 24 hr buPROPion hydrochloride 150 mg extended release oral tablet (17 sources) Aminoketone Start: 02-21-2024 take 1 tablet by mouth once daily buPROPion XL (Wellbutrin XL) 150 MG 24 hr tablet Indications: Other depression (CMS/HCC) TAKE 1 TABLET BY MOUTH EVERY DAY 90 tablet 3 02/21/2024 Active Start: 06-24-2021 take 150 mg by mouth once lynn y Bupropion Hcl Active 150 MG PO Daily June 24, 2021 4:16am take 1 tablet by raheem th every twenty-four hours in the morning buPROPion XL (Wellbutrin XL) 150 MG 24 hr tablet Take 1 tablet by mouth in the morning. Active carvedilol 12.5 mg oral tablet (17 sources) alpha-Adrenergic Tung, beta-Adrenergic Tung Start: 06-24-2021 take 12.5 mg by mouth twice daily at mealtime Carvedilol Active 12.5 MG PO Twice daily with meals 60 30 May 6th, 2022 4:10pm cefdinir 300 mg oral capsule (1 source) Cephalosporin Antibacterial Start: 03-11-2024 End: 03-21-2024 take 1 capsule by mouth in the morning cefdinir (Omnicef) 300 MG capsule Indications: Upper respiratory tract infection, unspecified type Take 1 capsule (300 mg) by mouth in the morning and 1 capsule (300 mg) before bedtime. Do all this for 10 days. 20 capsule 03/11/2024 03/21/2024 Active cholecalciferol 0.025 mg oral tablet (16 sources) Vitamin D Start: 03-24-2024 take 1 tablet by mouth once daily cholecalciferol (Vitamin D3) 25 MCG (1000 UT) tablet Indications: Vitamin D deficiency, unspecified , Vitamin D deficiency TAKE 1 TABLET BY MOUTH EVERY DAY 90 tablet 3 03/24/2024 Active Start: 03-20-2023 take 1 tablet by raheem th once daily cholecalciferol (Vitamin D3) 25 MCG (1000 UT) tablet Indications: Vitamin D deficiency, unspecified , Vitamin D deficiency TAKE 1 TABLET BY MOUTH EVERY DAY 90 tablet 3 03/20/2023 Active Continuous Glucose Blind Hooker (Dexcom G7 Blind Hooker) device (5 sources) Start: 02-29-2024 Continuous Glucose Blind Hooker (Dexcom G7 Blind Hooker) device Indications: Type 2 diabetes mellitus with hyperglycemia, without long-term current use of insulin ([facility]) 1 each continuously 1 each 02/29/2024 Active Continuous Glucose Sensor (Dexcom G7 Sensor) misc (5 sources) Start: 02-29-2024 Continuous Glucose Sensor (Dexcom G7 Sensor) misc Indications: Type 2 diabetes mellitus with hyperglycemia, without long-term current use of insulin ([facility]) 1 each continuously 1 each 11 02/29/2024 Active famotidine 40 mg oral tablet (16 sources) Histamine-2 Receptor Antagonist Start: 03-20-2023 take 1 tablet by mouth once daily famotidine (Pepcid) 40 MG tablet Indications: Gastroesophageal reflux disease without esophagitis TAKE 1 TABLET BY MOUTH EVERY DAY 90 tablet 3 03/20/2023 Active fluticasone propionate 0.05 mg/actuat metered dose nasal spray (17 sources) Corticosteroid Start: 10-31-2022 take 1 spray(s) nasal route once daily fluticasone (Flonase) 50 MCG/ACT nasal spray Indications: Upper respiratory tract infection, unspecified type SPRAY 1 SPRAY INTO EACH NOSTRIL DAILY 16 mL 2 10/31/2022 Active Start: 06-24-2021 Fluticasone Fu roate Active 2 INH INHALATION Daily June 24, 2021 4:16am furosemide 20 mg oral tablet (19 sources) Loop Diuretic Start: 11-12-2023 take 1 tablet by mouth once daily furosemide (Lasix) 20 MG tablet Indications: Chronic diastolic heart failure (CMS/HCC) Take 1 tablet (20 mg) by mouth Daily 90 tablet 3 11/12/2023 Active Start: 06-24-2021 End: 11-12-2023 take 40 mg by mouth once daily Furosemide Active 40 MG PO Daily June 24, 2021 4:16am hydrALAZINE hydrochloride 100 mg oral tablet (17 sources) Arteriolar Vasodilator Start: 02-21-2024 take 1 tablet by mouth three times daily hydrALAZINE (Apresoline) 100 MG tablet Indications: Hypertension, unspecified type (CMS/HCC) TAKE 1 TABLET BY MOUTH THREE TIMES A DAY 270 tablet 3 02/21/2024 Active Start: 06-24-2021 take 50 mg by mouth twice lynn y Hydralazine Active 50 MG PO Twice daily June 24, 2021 4:16am take 1 tablet by raheem th in the morning, then take 1 tablet by mouth in the evening, then take 1 tablet by mouth at bedtime hydrALAZINE (Apresoline) 100 MG tablet Take 1 tablet by mouth in the morning and 1 tablet in the evening and 1 tablet before bedtime. Active 3 ml liraglutide 6 mg/ml pen injector (1 source) GLP-1 Receptor Agonist Start: 06-25-2021 inject 0.6 mg by subcutaneous injection once daily, then inject 1.2 mg by subcutaneous injection once daily Liraglutide (Victoza 3-Dae) 0.6 mg/0.1 mL (18 mg/3 mL) pen injector Active 1.2 MG SUBCUT Daily 08 18June 25, 2021 10:54am 0.6mg sq daily x [...] PO Twice daily June 24, 2021 4:16am methocarbamol 750 mg oral tablet (16 sources) Muscle Relaxant Start: 12-05-2021 methocarbamol (Robaxin) 750 MG tablet Take 750 mg by mouth in the morning and 750 mg at noon and 750 mg in the evening and 750 mg before bedtime. 12/05/2021 Active metoclopramide 5 mg oral tablet (16 sources) Dopamine-2 Receptor Antagonist Start: 10-29-2023 take 1 tablet by mouth four times daily metoclopramide (Reglan) 5 MG tablet Indications: Early satiety TAKE 1 TABLET BY MOUTH FOUR TIMES A DAY 120 tablet 5 10/29/2023 Active montelukast 10 mg oral tablet (17 sources) Leukotriene Receptor Antagonist Start: 04-19-2023 take 1 tablet by mouth once daily at bedtime montelukast (Singulair) 10 MG tablet Indications: Seasonal allergic rhinitis due to pollen TAKE 1 TABLET BY MOUTH EVERYDAY AT BEDTIME 90 tablet 5 04/19/2023 Active Start: 06-24-2021 take 10 mg by mouth at bedtime Montelukast Active 10 MG PO Bedtime June 24, 2021 4:16am nystatin 100 unt/mg topical powder (18 sources) Polyene Antifungal Start: 11-12-2023 nystatin (M ycostatin) 280143 UNIT/GM powder Indications: Skin candidiasis Apply 1 application topically in the morning and 1 application in the evening and 1 application before bedtime. 60 g 3 11/12/2023 Active End: 11-12-2023 nystatin (Mycostatin) [id number] UNIT/GM powder Apply 100 application topically in the morning and 100 application in the evening and 100 application before bedtime. 11/12/2023 Discontinued (Reorder) ondansetron 4 mg disintegrating oral tablet (17 sources) Serotonin-3 Receptor Antagonist Start: 02-21-2023 ondansetron ODT (Zofran-ODT) 4 MG disintegrating tablet Indications: Nausea DISSOLVE 1 TABLET ON THE TONGUE EVERY 6 HOURS NEEDED FOR NAUSEA/ VOMITING 56 tablet 2 02/21/2023 Active Start: 06-24-2021 take 4 mg by mouth e very six hours Ondansetron Active 4 MG PO Q6H June 24, 2021 4:16am pantoprazole 40 mg delayed release oral tablet (15 sources) Proton Pump Inhibitor Start: 02-04-2024 take 1 tablet by mouth twice daily pantoprazole (ProtoNix) 40 MG EC tablet Indications: Gastroesophageal reflux disease without esophagitis TAKE 1 TABLET BY MOUTH TWICE A DAY 180 tablet 3 02/04/2024 Active Start: 02-06-2023 take 1 tablet by raheem th twice daily pantoprazole (ProtoNix) 40 MG EC tablet Indications: Gastroesophageal reflux disease without esophagitis TAKE 1 TABLET BY MOUTH TWICE A DAY 180 tablet 3 02/06/2023 Active Start: 06-24-2021 take 40 mg by mouth twice daily Pantoprazole Active 40 MG PO Twice daily June 24, 2021 4:16am PARoxetine hydrochloride 40 mg oral tablet (17 sources) Serotonin Reuptake Inhibitor Start: 11-08-2023 take 1 tablet by mouth once daily PARoxetine (Paxil) 40 MG tablet Indications: Major depressive disorder, recurrent episode, mild (HCC) (CMS/HCC) TAKE 1 TABLET BY MOUTH EVERY DAY 90 tablet 3 11/08/2023 Active Start: 06-24-2021 take 40 mg by mouth once daily Paroxetine Hcl Active 40 MG PO Daily June 24, 2021 4:16am SITagliptin 25 mg oral tablet (16 sources) Dipeptidyl Peptidase 4 Inhibitor Start: 09-21-2023 take 1 tablet by mouth once daily Januvia 25 MG tablet Indications: Type 2 diabetes mellitus with hyperglycemia (CMS/HCC) TAKE 1 TABLET BY MOUTH EVERY DAY 90 tablet 1 09/21/2023 Active sucralfate 1000 mg oral tablet (16 sources) Aluminum Complex Start: 05-11-2023 take 1 tablet by mouth once daily at bedtime sucralfate (Carafate) 1 g tablet Indications: Gastro-esophageal reflux disease without esophagitis , Esophageal reflux TAKE 1 TABLET BY MOUTH EVERYDAY AT BEDTIME 90 tablet 3 05/11/2023 Active sulfamethoxazole 800 mg / trimethoprim 160 mg oral tablet (2 sources) Dihydrofolate Reductase Inhibitor Antibacterial, Sulfonamide Antimicrobial Start: 11-12-2023 End: 11-19-2023 take 1 tablet by mouth once in the morning sulfamethoxazole-t rimethoprim (Bactrim DS) 800-160 MG per tablet Indications: Acute UTI Take 1 tablet by mouth in the morning and at noon for 7 days 14 tablet 11/12/2023 11/19/2023 Active temazepam 15 mg oral capsule (19 sources) Benzodiazepine Start: 09-20-2023 End: 03-26-2024 take 1 capsule by mouth once daily at bedtime temazepam (Restoril) 15 MG capsule Indications: Primary insomnia TAKE 1 CAPSULE BY MOUTH EVERYDAY AT BEDTIME 30 capsule 1 03/26/2024 Active Start: 06-24-2021 take 30 mg by mouth at bedtime Temazepam Active 30 MG PO Bedtime June 24, 2021 4:16am ticagrelor 90 mg oral tablet (1 source) Start: 06-24-2021 take 1 tablet by mouth twice daily Ticagrelor (Brilinta) 90 mg Tablet Active 90 MG PO Twice daily 180 90 June 24, 2021 4:10pm zinc oxide 0.3 mg/mg topical ointment (1 source) Start: 03-20-2024 Zinc Oxide (Pi nxav) 30 % ointment Indications: Skin breakdown Apply 1 Application topically if needed (Skin breakdown) 113.4 g 2 03/20/2024 Active Completed/Discontinued Medications Medication Drug Class(es) Dates Sig (Normalized) Sig (Original) clopidogrel 75 mg oral tablet (13 sources) [id number] Platelet Inhibitor Start: 06-02-2022 End: 02-29-2024 take 1 tablet by mouth in the morning clopidogrel (Plavix) 75 MG tablet Take 1 tablet by mouth in the morning. 06/02/2022 02/29/2024 Discontinued glipiZIDE 10 mg oral tablet (1 source) Sulfonylurea Start: 06-24-2021 End: 06-25-2021 take 10 mg by mouth once daily Glipizide Discontinued 10 MG PO Daily June 24, 2021 4:16am June 25, 2021 11:27am nitroglycerin 0.4 mg sublingual tablet (19 sources) Nitrate Vasodilator Start: 06-24-2021 Nitroglycerin 0.4 MG Sublingual Tablet Sublingual DISSOLVE 1 TABLET UNDER TONGUE NEEDED CHEST PAIN. MAY REPEAT EVERY 5 MINUTES IF NEEDED, AFTER 3RD DOSE CALL 911 Quantity: 1 Refills: 3 Ordered: 21-Oct-2021 Zafar Bolivar DO Start : 21-Oct-2021 Active Problems Active Problems Problem Classification Problem Date [...] (NSTEMI) myocardial infarction] 06-24-2021 Chronic Anxiety disorders (20 sources) Anxiety disorder, unspecified; Translations: [Claustrophobia] Onset: 3 Chronic Bacterial infection; unspecified site (2 sources) Enterococcus as the cause of diseases classified elsewhere; Translations: [Klebsiella pneumoniae [K. pneumoniae] as the cause of diseases classified elsewhere] Onset: 2 Episodic Chronic kidney disease (20 sources) Chronic kidney disease; Translations: [Chronic kidney disease, unspecified] Onset: 2 06-24-2021 Chronic Chronic kidney disease (5 sources) Chronic kidney disease; Translations: [CHRONIC KIDNEY DISEASE STAGE 3B] Onset: 2 Congestive heart failure; nonhypertensive (20 sources) Chronic diastolic (congestive) heart failure; Translations: [Chronic diastolic heart failure] Onset: 2 Chronic Coronary atherosclerosis and other heart disease (20 sources) Coronary arteriosclerosis; Translations: [Atherosclerotic heart disease of [place] coronary artery without angina pectoris] Onset: 2 06-24-2021 Chronic Coronary atherosclerosis and other heart disease (5 sources) Patient post percutaneous transluminal coronary angioplasty; Translations: [Percutaneous transluminal coronary angioplasty status] Onset: 3 Episodic Diabetes mellitus with complications (20 sources) Type 2 diabetes mellitus with diabetic chronic kidney disease; Translations: [Type 2 diabetes mellitus with hyperglycemia] Onset: 2 Chronic Diabetes mellitus without complication (6 sources) Diabetes mellitus; Translations: [Type 2 diabetes mellitus without complications] Onset: 2 06-24-2021 Chronic Disorders of lipid metabolism (20 sources) Pure hypercholesterolemia, unspecified; Translations: [Hyperlipidemia, unspecified] Onset: 2 Chronic Esophageal disorders (20 sources) Gastroesophageal reflux disease; Translations: [Gastro-esophageal reflux disease without esophagitis] Onset: 2 06-24-2021 Chronic Essential hypertension (20 sources) Hypertensive disorder; Translations: [Essential (primary) hypertension] Onset: 2 06-24-2021 Chronic Genitourinary symptoms and ill-defined conditions (16 sources) Overflow incontinence of urine; Translations: [Overflow incontinence] Onset: 4 03-13-2023 Chronic Genitourinary symptoms and ill-defined conditions (5 sources) [...] Onset: 2 Episodic Miscellaneous mental health disorders (20 sources) Psychophysiologic insomnia; Translations: [Primary insomnia] Onset: 3 03-13-2023 Chronic Mood disorders (20 sources) Depressive disorder; Translations: [Depression] Onset: 2 06-24-2021 Chronic Mood disorders (2 sources) Mood disorders; Translations: [F32.A - Depression, unspecified] Onset: 2 Mycoses (5 sources) Candidiasis of skin and nail; Translations: [Candidiasis of skin] Onset: 3 11-12-2023 Episodic Nonspecific chest pain (1 source) Chest pain; Translations: [Chest pain, unspecified] Episodic Nutritional deficiencies (17 sources) Vitamin D deficiency, unspecified; Translations: [Vitamin D deficiency] Onset: 3 03-13-2023 Chronic Occlusion or stenosis of precerebral arteries (2 sources) Occlusion and stenosis of bilateral carotid arteries; Translations: [Occlusion and stenosis of bilateral carotid arteries] Onset: 2 Chronic Osteoarthritis (20 sources) Primary gonarthrosis, bilateral; Translations: [Bilateral primary osteoarthritis of knee] Onset: 4 03-13-2023 Chronic Other acquired deformities (1 source) Other forms of scoliosis, lumbar region; Translations: [OTHER FORMS SCOLIOSIS LUMBAR REGION] Onset: 3 Chronic Other aftercare (2 sources) 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; Translations: [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 CURRENT DRUG THERAPY] Onset: 3 Episodic Other aftercare (1 source) halfway (current) use of aspirin; Translations: [CORPORATE 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 MANAGER CURRENT USE OF ASPIRIN] Onset: 3 Episodic Other and ill-defined cerebrovascular disease (16 sources) Cerebrovascular disease; Translations: [Cerebrovascular disease, unspecified] Onset: 4 03-13-2023 Chronic Other circulatory disease (1 source) Personal history of transient ischemic attack (TIA), and cerebral infarction without residual deficits; Translations: [PERS HX TIA AND CI NO RESID DEFICIT] Onset: 3 Episodic Other connective tissue disease (3 sources) Fibromyalgia; Translations: [Myalgia and myositis, unspecified] Onset: 2 Episodic Other connective tissue disease (1 source) Repeated falls; Translations: [REPEATED FALLS] Onset: 3 Episodic Other diseases of veins and lymphatics (2 sources) Vascular insufficiency; Translations: [Venous insufficiency (chronic) (peripheral)] 01-31-2024 Episodic Other gastrointestinal disorders (1 source) Other constipation; Translations: [OTHER CONSTIPATION] Onset: 3 Episodic Other lower respiratory disease (1 source) Paroxysmal nocturnal dyspnea; Translations: [Dyspnea, unspecified] Episodic Other nervous system disorders (3 sources) Cerebral cysts; Translations: [CEREBRAL CYSTS] Onset: 3 Chronic Other nervous system disorders (1 source) Other chronic pain; Translations: [OTHER CHRONIC PAIN] Onset: 2 Chronic Other nervous system disorders (16 sources) Arachnoid cyst; Translations: [Cerebral cysts] Onset: 4 03-13-2023 Chronic Other nervous system disorders (1 source) Unsteadiness on feet; Translations: [UNSTEADINESS ON FEET] Onset: 3 Episodic Other nervous system disorders (1 source) Other abnormalities of gait and mobility; Translations: [OTHER ABNORMALITIES GAIT AND MOBILITY] Onset: 3 Episodic Other non-traumatic joint disorders (1 source) Polyarthritis, unspecified; Translations: [POLYARTHRITIS UNSPECIFIED] Onset: 3 Chronic Other non-traumatic joint disorders (7 sources) Pain in elbow; Translations: [Pain in left elbow] Onset: 5 02-29-2024 Episodic Other nutritional; endocrine; and metabolic disorders (1 source) Morbid (severe) obesity due to excess calories; Translations: [MORBID SEVERE OBES D/T EXCESS SVETLANA] Onset: 2 Chronic Other nutritional; endocrine; and metabolic disorders (1 source) Body mass index (BMI) 32.0-32.9, adult; Translations: [BODY MASS INDEX BMI 32.0-32.9 ADULT] Onset: 2 Chronic Other nutritional; endocrine; and metabolic disorders (12 sources) Body mass index 30+ - obesity; Translations: [Obesity, unspecified] Onset: 4 11-12-2023 Chronic Other nutritional; endocrine; and metabolic disorders (7 sources) Obesity caused by energy imbalance; Translations: [Class 1 obesity due to excess calories with serious comorbidity and body mass index (BMI) of 33.0 to 33.9 in adult] Onset: 4 02-29-2024 Chronic Other nutritional; endocrine; and metabolic disorders (1 source) Body mass index (BMI) 33.0-33.9, adult; Translations: [Body mass index (BMI) 33.0-33.9, adult] Onset: 5 Chronic Residual codes; unclassified (1 source) Acquired [...] [CONTACT W/AND (SUSP) EXPOS COVID-19] Onset: 3 Past or Other Problems Problem Classification Problem Date Documented Da te Episodic/Chronic Abdominal pain (4 sources) Unspecified abdominal pain; Translations: [UNSPECIFIED ABDOMINAL PAIN] Onset: 08-31-2021 Episodic Fluid and electrolyte disorders (18 sources) Dehydration; Translations: [Hypokalemia] Onset: 07-21-2021 03-13-2023 Episodic Nausea and vomiting (8 sources) Nausea with vomiting, unspecified; Translations: [Nausea] Onset: 08-16-2021 Episodic Other aftercare (1 source) 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; 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] Onset: 08-18-2021 Episodic Other aftercare (20 sources) Long-term current use of drug therapy; 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] Onset: 03-13-2023 03-13-2023 Episodic Other connective tissue disease (19 sources) Fibromyalgia; Translations: [Fibromyalgia] Onset: 03-13-2023 06-24-2021 Episodic Other gastrointestinal disorders (1 source) Diarrhea, unspecified; Translations: [DIARRHEA UNSPECIFIED] Onset: 08-30-2021 Episodic Other gastrointestinal disorders (16 sources) Chronic constipation; Translations: [Other constipation] Onset: 03-13-2023 03-13-2023 Episodic Other lower respiratory disease (1 source) [...] satiety; Translations: [EARLY SATIETY] Onset: 09-09-2021 Episodic Urinary tract infections (19 sources) Urinary tract infection, site not specified; Translations: [Acute urinary tract infection] Onset: 08-18-2021 Resolved: 02-29-2024 11-12-2023 Episodic Results Test Name Value Interpretation Reference Range Facility BASIC METABOLIC PANLon 03-19 Anion gap [Moles/Vol] 10 mmol/L Normal 5-15 [facility] Comment on above: Performed By: #### B ZACH ANSARI, 3016-3, CBCA #### [facility] ([id number]) [address] [place] [address] 28280 #### 24371-2, HA1C #### [facility] ([id number]) [address] [place] [address], [address] [place] [address] Calcium [Mass/Vol] 9.2 mg/dL Normal 8.5-10.5 [facility] Comment on above: Performed By: #### B ZACH ANSARI, 63, CBCA #### [facility] ([id number]) [address] [place] [address] 12507 #### 62302-5, HA1C #### [facility] ([id number]) [address] [facility], [address] [place] [address] Chloride [Moles/Vol] 102 mmol/L Normal 98-109 [facility] Comment on above: Performed By: #### B ELAN LIVCrystal, 3015-3, CBCA #### [facility] ([id number]) [address] [place] [address] 48769 #### 98794-3, HA1C #### [facility] ([id number]) [address], [address] [place] [address] CO2 [Moles/Vol] 25 mmol/L Normal 22-32 [facility] Comment on above: Performed By: #### B ZACH ANSARI, 3015-04, CBCA #### [facility] ([id number]) [address] [place] [address] 61134 #### 62194-9, HA1C #### [facility] ([id number]) [address], [address] [place] [address] Creatinine [Mass/Vol] 1.42 mg/dL High 0.40-1.00 [facility] Comment on above: Result Comment: METH OD TRACEABLE TO IDMS STANDARD Performed By: #### B ZACH ANSARI, 3015-04, CBCA #### [facility] ([id number]) [address] [place] [address] 87261 #### 71673-8, HA1C #### [facility] ([id number]) [address], [address] [place] [address] GFR/1.73 sq M.predicted among non-blacks MDRD (S/P/Bld) [Vol rate/Area] 38 mL/min/{1.73_m2} Low >59 [facility] Comment on above: Result Comment: Reported eGFR is based on the CKD-EPI 2020 equation that does not use a race coefficient. Performed By: #### B ZACH ANSARI, 3015-04, CBCA #### [facility] ([id number]) [address] [place] [address] 74170 #### 26931-6, HA1C #### [facility] ([id number]) [address], [address] [place] [address] Glucose [Mass/Vol] 261 mg/dL High 65-99 [facility] Comment on above: Performed By: #### B MP, LIVR, 3, CBCA #### [facility] ([id number]) [address] [place] [address] 65094 #### 16944-1, HA1C #### [facility] ([id number]) [address], [address] [place] [address] Potassium [Moles/Vol] 3.7 mmol/L Normal 3.5-5.0 [facility] Comment on above: Performed By: #### B MP, LIVR, 3016-3, CBCA #### [facility] ([id number]) [address] [place] [address] 33888 #### 81969-9, HA1C #### [facility] ([id number]) [address], [address] [place] [address] Sodium [Moles/Vol] 137 mmol/L Normal 134-146 [facility] Comment on above: Performed By: #### B ELAN, LIVR, 3016-3, CBCA #### [facility] ([id number]) [address] [place] [address] 93713 #### 53378-6, HA1C #### [facility] ([id number]) [address], [address] [place] [address] Urea nitrogen [Mass/Vol] 28 mg/dL High 5-27 [facility] Comment on above: Performed By: #### B ELAN, LIVR, 3016-3, CBCA #### [facility] ([id number]) [address] [place] [address] 25447 #### 13335-9, HA1C #### [facility] ([id number]) [address], [address] [place] [address] CBC AND AUTO DIFFon 03-19-19 25 ABSOLUTE BASOPHIL 0.1 X10E9/L Normal 0.0-0.2 [facility] Comment on above: Performed By: #### B MP, LIVR, 3016-3, CBCA #### [facility] ([id number]) [address] [place] [address] 41427 #### 48516-6, HA1C #### [facility] ([id number]) [address], [address] [place] [address] ABSOLUTE NEUTROPHIL 4.9 X10E9/L Normal 1.5-6.6 [facility] Comment on above: Performed By: #### B MP, LIVR, 3016-3, CBCA #### [facility] ([id number]) [address] [place] [address] 12063 #### 71241-8, HA1C #### [facility] ([id number]) [address], [address] [place] [address] Basophils/100 WBC (Bld) 1.1 % Normal [facility] Comment on above: Performed By: #### B MP, LIVR, 3016-3, CBCA #### [facility] ([id number]) [address] [place] [address] 06041 #### 96804-1, HA1C #### [facility] ([id number]) [address], [address] [place] [address] Eosinophils (Bld) [#/Vol] 0.3 10*3/uL Normal 0.0-0.4 [facility] Comment on above: Performed By: #### B MP, LIVR, 3016-3, CBCA #### [facility] ([id number]) [address] [place] [address] 97564 #### 29246-9, HA1C #### [facility] ([id number]) [address], [address] [place] [address] Eosinophils/100 WBC (Bld) 4.2 % Normal [facility] Comment on above: Performed By: #### B ELAN, LIVR, 3015-3, CBCA #### [facility] ([id number]) [address] [place] [address] 44891 #### 45061-8, HA1C #### [facility] ([id number]) [address], [address] [place] [address] Erythrocyte distribution width (RBC) [Ratio] 13.1 % Normal 11.5-15.0 [facility] Comment on above: Performed By: #### B ELAN, LIVR, 3015-3, CBCA #### [facility] ([id number]) [address] [place] [address] 22463 #### 99831-6, HA1C #### [facility] ([id number]) [address] [facility], [address] [place] [address] Hematocrit (Bld) [Volume fraction] 36.8 % Normal 35-47 [facility] Comment on above: Performed By: #### B ELAN, LIVR, 3, CBCA #### [facility] ([id number]) [address] [place] [address] 72340 #### 01020-6, HA1C #### [facility] ([id number]) [address], [address] [place] [address] Hemoglobin (Bld) [Mass/Vol] 12.2 g/dL Normal 11.7-15.5 [facility] Comment on above: Performed By: #### B ELAN, LIVR, 3015-3, CBCA #### [facility] ([id number]) [address] [place] [address] 91814 #### 23071-4, HA1C #### [facility] ([id number]) [address], [address] [place] [address] Lymphocytes (Bld) [#/Vol] 1.0 10*3/uL Normal 1.0-3.5 [facility] Comment on above: Performed By: #### Mary ANSARI LIVR, 3016-3, CBCA #### [facility] ([id number]) [address] [place] [address] 62129 #### 02386-2, HA1C #### [facility] ([id number]) [address] [facility], [address] [place] [address] Lymphocytes/100 WBC (Bld) 14.0 % Normal [facility] Comment on above: Performed By: #### ZACH Hernandez MP, 3016-3, CBCA #### [facility] ([id number]) [address] [place] [address] 33304 #### 94690-2, HA1C #### [facility] ([id number]) [address] [place] [address], [address] [place] [address] MCH (RBC) [Entitic mass] 30.3 pg Normal 27-34 [facility] Comment on above: Performed By: #### Mary ANSARI LIVR, 6-3, CBCA #### [facility] ([id number]) [address] [place] [address] 68452 #### 70506-6, HA1C #### [facility] ([id number]) [facility] [facility], [address] [place] [address] MCHC (RBC) [Mass/Vol] 33.3 g/dL Normal 32-36 [facility] Comment on above: Performed By: #### Mary ANSARI LIVR, 3016-3, CBCA #### [facility] ([id number]) [address] [place] [address] 67747 #### 30154-3, HA1C #### [facility] ([id number]) [address] [facility], [address] [place] [address] MCV (RBC) [Entitic vol] 91 fL Normal 80-100 [facility] Comment on above: Performed By: #### B ZACH ANSARI, 3015-04, CBCA #### [facility] ([id number]) [address] [place] [address] 81610 #### 72886-1, HA1C #### [facility] ([id number]) [address], [address] [place] [address] Monocytes (Bld) [#/Vol] 0.6 10*3/uL Normal 0-0.9 [facility] Comment on above: Performed By: #### ZACH Hernandez MP, 3015-04, CBCA #### [facility] ([id number]) [address] [place] [address] 46393 #### 23707-5, HA1C #### [facility] ([id number]) [address] [facility] [facility], [address] [place] [address] Monocytes/100 WBC (Bld) 9.2 % Normal [facility] Comment on above: Performed By: #### ZACH Hernandez MP, 3015-04, CBCA #### [facility] ([id number]) [address] [place] [address] 85292 #### 02651-9, HA1C #### [facility] ([id number]) [address], [address] [place] [address] Neutrophils/100 WBC (Bld) 71.5 % Normal [facility] Comment on above: Performed By: #### ZACH Hernandez MP, 3015-04, CBCA #### [facility] ([id number]) [address] [place] [address] 64513 #### 50037-9, HA1C #### [facility] ([id number]) [address], [address] [place] [address] Platelet mean volume (Bld) [Entitic vol] 9.6 fL Normal 7-12 [facility] Comment on above: Performed By: #### B ZACH ANSARI, 6-, CBCA #### [facility] ([id number]) [address] [place] [address] 31420 #### 61926-1, HA1C #### [facility] ([id number]) [address], [address] [place] [address] Platelets (Bld) [#/Vol] 241 10*3/uL Normal 150-450 [facility] Comment on above: Performed By: #### B ZACH ANSARI, 6, CBCA #### [facility] ([id number]) [address] [place] [address] 44349 #### 49508-6, HA1C #### [facility] ([id number]) [address], [address] [place] [address] RBC COUNT 4.04 X10E12/L Normal 3.80-5.20 [facility] Comment on above: Performed By: #### B ZACH ANSARI, 6-3, CBCA #### [facility] ([id number]) [address] [place] [address] 62351 #### 37674-7, HA1C #### [facility] ([id number]) [address], [address] [place] [address] WBC (Bld) [#/Vol] 6.8 10*3/uL Normal 4.0-11.0 [facility] Comment on above: Performed By: #### B ELAN LIVR, 6-3, CBCA #### [facility] ([id number]) [address] [place] [address] 40236 #### 96963-8, HA1C #### [facility] ([id number]) [address] [facility], [address] [place] [address] HGB A1C (GLYCO-HGB)on 2024 Glucose [Mass/Vol] 246 mg/dL Normal [facility] Comment on above: Performed By: #### B ZACH ANSARI, 3016-3, CBCA #### [facility] ([id number]) [address] [place] [address] 78015 #### 41800-1, HA1C #### [facility] ([id number]) [address] [facility], [address] [place] [address] HbA1c (Bld) [Mass fraction] 10.2 % High 4.4-5.6 [facility] Comment on above: Result Comment: NOTE ADA Guidelines Result HgbA1c Normal : less than 5.7 % Prediabetes : 5.7 % to 6.4 % Diabetes : > 6.4 % Use with caution in patients with abnormal hemoglobin variants as the half-life of red blood cells and in vivo glycation rates are affected. Performed By: #### B ZACH ANSARI, 6, CBCA #### [facility] ([id number]) [address] [place] [address] 19069 #### 15801-2, HA1C #### [facility] ([id number]) [address] [facility], [address] [place] [address] LIVER PANELon 03-19-2024 Albumin [Mass/Vol] 3.2 g/dL Normal 3.2-5.3 [facility] Comment on above: Performed By: #### ZACH Hernandez MP, 6, CBCA #### [facility] ([id number]) [address] [place] [address] 78484 #### 29260-7, HA1C #### [facility] ([id number]) [address] [facility], [address] [place] [address] ALP [Catalytic activity/Vol] 62 U/L Normal 39-130 [facility] Comment on above: Performed By: #### Mary ANSARI, LIVR, 3016-3, CBCA #### [facility] ([id number]) [address] [place] [address] 02765 #### 35661-7, HA1C #### [facility] ([id number]) [address] [facility], [address] [place] [address] ALT [Catalytic activity/Vol] 23 U/L Normal 0-31 [facility] Comment on above: Performed By: #### Mary ANSARI, LIVR, 3016-3, CBCA #### [facility] ([id number]) [address] [place] [address] 04175 #### 62691-1, HA1C #### [facility] ([id number]) [address] [place] [address], [address] [place] [address] AST [Catalytic activity/Vol] 18 U/L Normal 0-41 [facility] Comment on above: Performed By: #### Mary ANSARI, LIVR, 3016-3, CBCA #### [facility] ([id number]) [address] [place] [address] 89915 #### 09806-9, HA1C #### [facility] ([id number]) [address] [place] [address], [address] [place] [address] Bilirubin [Mass/Vol] 0.9 mg/dL Normal 0.3-1.2 [facility] Comment on above: Performed By: #### Mary ANSARI, LIVR, 3016-3, CBCA #### [facility] ([id number]) [address] [place] [address] 81727 #### 29335-3, HA1C #### [facility] ([id number]) [address] [facility], [address] [place] [address] Bilirubin.direct [Mass/Vol] 0.1 mg/dL Normal 0.0-0.4 [facility] Comment on above: Performed By: #### B ELNA, LIVR, 3016-3, CBCA #### [facility] ([id number]) [address] [place] [address] 42730 #### 30506-3, HA1C #### [facility] ([id number]) [address] [facility], [address] [place] [address] Protein [Mass/Vol] 6.6 g/dL Normal 6.0-8.0 [facility] Comment on above: Performed By: #### B ELAN, LIVR, 3016-3, CBCA #### [facility] ([id number]) [address] [place] [address] 15827 #### 16992-2, HA1C #### [facility] ([id number]) [address] [place] [address], [address] [place] [address] Lipid 1996 panelon 5 Cholesterol [Mass/Vol] 156 mg/dL Normal 150-200 [facility] Comment on above: Performed By: #### B ELAN, LIVR, 3016-3, CBCA #### [facility] ([id number]) [address] [place] [address] 99514 #### 01494-9, HA1C #### [facility] ([id number]) [address] [facility], [address] [place] [address] Cholesterol in HDL [Mass/Vol] 59 mg/dL Normal >39 [facility] Comment on above: Result Comment: HDL <40 mg/dL - High Risk HDL > or = 40mg/dL- Desirable HDL >60 mg/dL - Negative Risk Performed By: #### ZACH Hernandez MP, 3015-04, CBCA #### [facility] ([id number]) [address] [place] [address] 13232 #### 51218-5, HA1C #### [facility] ([id number]) [address] [facility] [place] [address] Cholesterol in LDL [Mass/Vol] 66 mg/dL Normal <130 [facility] Comment on above: Result Comment: LDL <100 mg/dL - Desirable LDL >160 mg/dL - High Risk Performed By: #### ZACH Hernandez MP, 3015-04, CBCA #### [facility] ([id number]) [address] [place] [address] 54158 #### 73598-4, HA1C #### [facility] ([id number]) [address] [facility], [address] [place] [address] Cholesterol in VLDL [Mass/Vol] 31 mg/dL High 0-30 [facility] Comment on above: Performed By: #### ZACH Hernandez MP, 3015-04, CBCA #### [facility] ([id number]) [address] [place] [address] 18720 #### 99310-2, HA1C #### [facility] ([id number]) [address] [facility], [address] [place] [address] CHOLESTEROL:HDL 2.6 Normal 1.0-5.0 [facility] Comment on above: Performed By: #### ZACH Hernandez MP, 3015-04, CBCA #### [facility] ([id number]) [address] [place] [address] 23931 #### 15464-7, HA1C #### [facility] ([id number]) [address] [facility] [address] [place] [address] Triglyceride [Mass/Vol] 156 mg/dL High 27-150 [facility] Comment on above: Performed By: #### B ELAN LIVR, 3016-3, CBCA #### [facility] ([id number]) [address] [place] [address] 19199 #### 86867-7, HA1C #### [facility] ([id number]) [address] [place] [address], [facility] [address] [place] [address] MICROALBUMIN - ALBUMIN:CREAT ININE URINE RATIOon 03-19-2024 ALB/CREAT RATIO 3668.3 mg/g creat High 0.0-30.0 [facility] Comment on above: Performed By: #### M ALBU #### [facility] ([id number]) [address] [place] [address], [address] [place] [address] Albumin DL <= 20 mg/L (U) [Mass/Vol] 243.1 mg/dL High 0.0-1.9 [facility] Comment on above: Performed By: #### M ALBU #### [facility] ([id number]) [address] [place] [address] [address] [place] [address] URINE CREAT 66.27 mg/dL Normal [facility] Comment on above: Performed By: #### M ALBU #### [facility] ([id number]) [address] [place] [address] [address] [place] [address] TSH Qnon 03-19-2024 TSH 2.19 uIU/mL Normal 0.49-4.67 [facility] Comment on above: Performed By: #### B ELAN, LIVR, 3016-3, CBCA #### [facility] ([id number]) [address] [facility], [place] [address] #### 29001-2, HA #### [facility] ([id number]) [address] [facility], [address] [place] [address] ALL CBC WITH AUTO DIFFon BASOPHILS ABSOLUTE AUTO 0 [facility] Basophils/100 WBC (Bld) 0.4 % 0.2 - 2.0 % [facility] Eosinophils/100 WBC (Bld) 1.8 % 0.9 - 7.0 % [facility] Erythrocyte distribution width (RBC) [Ratio] 12.4 % 11.0 - 15.0 % [facility] Hematocrit (Bld) [Volume fraction] 37.5 % 36.0 - 48.0 % [facility] Hemoglobin (Bld) [Mass/Vol] 12 g/dL 12.0 - 16.0 g/dL [facility] IMMATURE GRANULOCYTES ABS AUTO 0.03 [facility] Immature granulocytes/100 WBC (Bld) 0.3 % 0.0 - 0.5 % [facility] Interpretation and review of laboratory results Abnormal [facility] LYMPHOCYTES ABSOLUTE AUTO [address] [facility] Lymphocytes/100 WBC (Bld) 11.2 % Low 20.5 - 60.0 % [facility] MCH (RBC) [Entitic mass] 30.6 pg 26.7 - 34.[address] [facility] MCHC (RBC) [Mass/Vol] 32 g/dL 29.9 - 35.2 g/dL [facility] MCV (RBC) [Entitic vol] 95.7 fL 81.0 - 99.[address] [facility] MONOCYTES ABSOLUTE AUTO 0.7 [facility] Monocytes/100 WBC (Bld) 7.9 % 1.7 - 12.0 % [facility] NEUTROPHILS ABSOLUTE AUTO [address] [facility] Neutrophils/100 WBC (Bld) 78.4 % High 43.0 - 75.0 % [facility] Platelet mean volume (Bld) [Entitic vol] 10.6 fL 9.5 - 13.[address] [facility] TBH EO # 0.2 [facility]H PLT 233 [facility] TBH RBC 3.[address] [facility] TB WBC 9 [facility]INISY[facility] URINE CULTURE, ROUTINEon Bacteria identified Cx Nom (U) Urine Culture, Routine [facility] Bacteria identified Cx Nom (U) No growth [facility] Bacteria identified Cx Nom (U) Performed at: - [facility] Bacteria identified Cx Nom (U) [address], [place] [id number] [facility] Bacteria identified Cx Nom (U) Advertising Rep: Best Garcia PhD, Phone: [phone] [facility] Office Visiton 08-20-2023 Follow-up visit [id number] Irma Turner Isrrael 1945 Date Provider Department Center 08/20/2023 CAROLINA MARCOS CHARLES [facility] Family History Problem Relation Age of Onset Breast cancer Mother Stroke Father Family Status - Relation Status Age at Mother Father Level of Service:36937 [place] OFFICE/OUTPATIENT ESTABLISHED MOD MDM 30 MIN [facility] 36on 03-05-2023 36 Please let her know her recent carotid ultrasound showed things were stable. Plan for a follow-up ultrasound in 1 year. Follow-up in 6 months. Thanks! Normal [facility] Telephoneon 03-05-2023 Telephone [id number] Irma Turner 1945 [facility] Provider Department Center 03/05/2023 CHRISTOPHER SHIN CHARLES Phillips Family History Problem Relation Age of Onset Breast cancer Mother Stroke Father Family Status - Relation Status Age at Mother Father Normal [facility] Office Visiton 01-31-2023 Follow-up visit [id number] Irma Turner Isrrael 1945 [facility] Provider Department Center 01/31/2023 CHRISTOPHER SHIN CHARLES Arnold Family History Problem Relation Age of Onset Breast cancer Mother Stroke Father Family Status - Relation Status Age at Mother Father Level of Service:09742 NM OFFICE/OUTPATIENT ESTABLISHED MOD MDM 30-39 MIN Reason for Visit and Comments: Congestive Heart Failure [127] Hypertension [626616] Carotid Artery Disease [453] Normal [facility] Consulton 08-29-2022 Consult [id number] Irma Turner 1945 Date Provider Department Center 08/29/2022 CARMINA SAMANIEGO [facility] [place] Family History Problem Relation Age of Onset Breast cancer Mother Stroke Father Family Status - Relation Status Age at Mother Father Level of Service:35140 NM OFFICE/OUTPATIENT NEW MODERATE MDM 45-59 MINUTES Normal [facility] MRI BRAIN WO W CONon 023 MRI [...] LISSETTE VILLALOBOS Date: 2022-07-04 09:08 Normal [facility] CREATININEon 07-03-2022 Creatinine [Mass/Vol] 1.87 mg/dL Critically high 0.55-1.02 [facility] Comment on above: Performed By: #### U ARMICR #### [facility] [address] [address] [address] Gasper Garber EGFR-AF SOUTH AFRICAN 32 mL/min/1.73m2 Critically low >=60 [facility] Comment on above: Performed By: #### U ARMICR #### [facility] [address] [place], [place] [address] Dr. Gasper Garber EGFR-NON AF SOUTH AFRICAN 26 mL/min/1.73m2 Critically low >=60 [facility] Comment on above: Performed By: #### U ARMICR #### [facility] [address] [address] [address] Gasper Garber UA (CLEAN/CATCH) MICROSCOPIC IF INDICATEon 05-26-2022 Bilirubin Ql (U) Negative Normal NEGATIVE [facility] Comment on above: Performed By: #### U ARMICR #### [facility] [address] [address] [address] Gasper Garber Clarity (U) CLEAR Normal CLEAR [facility] Comment on above: Performed By: #### U ARMICR #### [facility] [address] [place] [address] Dr. Gasper Garber Color (U) LT. YELLOW Normal YELLOW [facility] Comment on above: Performed By: #### U ARMICR #### [facility] [address] [place] [address] Dr. Gasper Garber Glucose Ql (U) Negative Normal NEGATIVE [facility] Comment on above: Performed By: #### U ARMICR #### [facility] [address] [place] [address] Dr. Gasper Garber Hemoglobin Ql (U) Negative Normal NEGATIVE [facility] Comment on above: Performed By: #### U ARMICR #### [facility] [address] [place] [address] Dr. Gasper Garber Ketones Ql (U) Negative Normal NEGATIVE [facility] Comment on above: Performed By: #### U ARMICR #### [facility] [address] [place] [address] Dr. Gasper Garber LEUKOCYTES Negative Normal NEGATIVE [facility] Comment on above: Performed By: #### U ARMICR #### [facility] [address] [address] [address] Gasper Garber Nitrite Ql (U) Negative Normal NEGATIVE [facility] Comment on above: Performed By: #### U ARMICR #### [facility] [address] [place] [address] Dr. Gasper Garber pH (U) 6.5 [pH] Normal 5-9 [facility] Comment on above: Performed By: #### U ARMICR #### [facility] [address] [place] [address] Dr. Gasper Garber SPEC GRAVITY 1.010 Normal 1.005-<=1.0 25 [facility] Comment on above: Performed By: #### U ARMICR #### [facility] [address] [place] [address] Dr. Gasper Garber UA PROTEIN TRACE Normal NEGATIVE/ TRACE [facility] Comment on above: Performed By: #### U ARMICR #### [facility] [address] [place] [address] Dr. Gasper Garber UR MICRO IND NOT INDICATED Normal [facility] Comment on above: Performed By: #### U ARMICR #### [facility] [address] [place] [address] Dr. Gasper Garber Urobilinogen Qn (U) 0.2 {Kaushik'U}/dL Normal 0.2 - 1. 0 [facility] Comment on above: Performed By: #### U ARMICR #### [facility] [address] [place] [address] Dr. Gasper Garber CULTURE URINEon 05-16-2022 CULTURE [...] F Nitrofurantoin <=16 S F Normal [facility] Comment on above: Performed By: #### U RCX #### [facility] [address] [place] [address] Dr. Gasper Garber MAGNESIUMon 05-16-2022 Magnesium [Mass/Vol] 2.0 mg/dL Normal 1.8-2.4 [facility] Comment on above: Performed By: #### BERNIE MALDONADO #### [facility] [address] [place] [address] Dr. Gasper Garber CBC AUTO DIFFon 05-15-2022 BASO # 0.0 103/ul Normal 0.0-0.1 [facility] Comment on above: Performed By: #### JOANNE MALDONADOICRO #### [facility] [address] [place] [address] Dr. Gasper Garber Basophils/100 WBC (Bld) 0.5 % Normal 0.2-2.0 [facility] Comment on above: Performed By: #### Bernice HERNDON UMICRO #### [facility] [address] [place] [address] Dr. Gasper Garber EO # 0.2 103/ul Normal 0.0-0.7 [facility] Comment on above: Performed By: #### JOANNE MALDONADOICRO #### [facility] [address] [place] [address] Dr. Gasper Garber Eosinophils/100 WBC (Bld) 1.8 % Normal 0.9-7.0 [facility] Comment on above: Performed By: #### JOANNE MALDONADOICRO #### [facility] [address] [place] [address] Dr. Gasper Garber Erythrocyte distribution width (RBC) [Ratio] 12.5 % Normal 11.0-15.0 [facility] Comment on above: Performed By: #### JOANNE MALDONADOICRO #### [facility] [address] [place] [address] Dr. Gasper Garber Hematocrit (Bld) [Volume fraction] 36.1 % Normal 36.0-48.0 [facility] Comment on above: Performed By: #### Bernice HERNDON UMICRO #### [facility] [address] [place] [address] Dr. Gasper Garber Hemoglobin (Bld) [Mass/Vol] 11.8 g/dL Critically low 12.0-16.0 [facility] Comment on above: Performed By: #### Bernice HERNDON UMICRO #### [facility] [address] [place] [address] Dr. Gasper Garber IG # 0.02 10e3/ul Normal 0.00-0.03 [facility] Comment on above: Performed By: #### BERNIE MALDONADO #### [facility] [address] [place] [address] Dr. Gasper Garber IG % 0.2 % Normal 0.0-0.5 [facility] Comment on above: Performed By: #### TONI MALDONADORO #### [facility] [address] [place] [address] Dr. Gasper Garber LYMPH # 1.2 103/ul Normal 1.2-3.8 [facility] Comment on above: Performed By: #### BERNIE MALDONADO #### [facility] [address] [place] [address] Dr. Gasper Garber Lymphocytes/100 WBC (Bld) 14.2 % Critically low 20.5-60.0 [facility] Comment on above: Performed By: #### BERNIE MALDONADO #### [facility] [address] [place] [address] Dr. Gasper Garber MANUAL DIFF REQ NO Normal [facility] Comment on above: Performed By: #### BERNIE MALDONADO #### [facility] [address] [place] [address] Dr. Gasper Garber MCH (RBC) [Entitic mass] 30.6 pg Normal 26.7-34.0 [facility] Comment on above: Performed By: #### BERNIE MALDONADO #### [facility] [address] [place] [address] Dr. Gasper Garber MCHC (RBC) [Mass/Vol] 32.7 g/dL Normal 29.9-35.2 [facility] Comment on above: Performed By: #### TONI MALDONADORO #### [facility] [address] [place] [address] Dr. Gasper Garber MCV (RBC) [Entitic vol] 93.8 fL Normal 81.0-99.0 [facility] Comment on above: Performed By: #### E RUR, UMICRO #### [facility] [address] [place] [address] Dr. Gasper Garber MONO # 1.0 103/ul Critically high 0.3-0.8 [facility] Comment on above: Performed By: #### Bernice HERNDON UMICRO #### [facility] [address] [place] [address] Dr. Gasper Garber Monocytes/100 WBC (Bld) 12.3 % Critically high 1.7-12.0 [facility] Comment on above: Performed By: #### Bernice HERNDON UMICRO #### [facility] [address] [place] [address] Dr. Gasper Garber NEUT # 5.9 103/ul Normal 1.4-6.5 [facility] Comment on above: Performed By: #### Bernice HERNDON UMICRO #### [facility] [address] [place] [address] Dr. Gasper Garber Neutrophils/100 WBC (Bld) 71.0 % Normal 43.0-75.0 [facility] Comment on above: Performed By: #### Bernice HERNDON UMICRO #### [facility] [address] [place] [address] Dr. Gasper Garber Platelet mean volume (Bld) [Entitic vol] 11.3 fL Normal 9.5-13.5 [facility] Comment on above: Performed By: #### Bernice HERNDON UMICRO #### [facility] [address] [place] [address] Dr. Gasper Garber PLT 237 103/ul Normal 150-450 [facility] Comment on above: Performed By: #### Bernice HERNDON UMICRO #### [facility] [address] [place] [address] Dr. Gasper Garber RBC 3.85 106/ul Critically low 4.20-5.40 [facility] Comment on above: Performed By: #### Bernice HERNDON UMICRO #### [facility] [address] [place] [address] Dr. Gasper Garber WBC 8.4 103/ul Normal 4.0-11.0 [facility] Comment on above: Performed By: #### TONI MALDONADORO #### [facility] [address] [place] [address] Dr. Gasper Garber MAGNESIUMon 05-15-2022 Magnesium [Mass/Vol] 2.0 mg/dL Normal 1.8-2.4 [facility] Comment on above: Performed By: #### Bernice HERNDON UMDINORAHRO #### [facility] [address] [place] [address] Dr. Gasper Garber PROF 14(COMP METB)on 023 Albumin [Mass/Vol] 3.4 g/dL Normal 3.4-5.0 [facility] Comment on above: Performed By: #### TONI MALDONADORO #### [facility] [address] [place] [address] Dr. Gasper Garber Albumin/Globulin [Mass ratio] 1.0 {ratio} Normal [facility] Comment on above: Performed By: #### Bernice HERNDON UMDINORAHRO #### [facility] [address] [place] [address] Dr. Gasper Garber ALP [Catalytic activity/Vol] 70 U/L Normal 46-116 [facility] Comment on above: Performed By: #### TONI MALDONADORO #### [facility] [address] [place] [address] Dr. Gasper Garber ALT [Catalytic activity/Vol] 23 U/L Normal 14-59 [facility] Comment on above: Performed By: #### Bernice HERNDON UMICRO #### [facility] [address] [place] [address] Dr. Gasper Garber Anion gap [Moles/Vol] 12.2 mmol/L Normal [facility] Comment on above: Performed By: #### Bernice HERNDON UMICRO #### [facility] [address] [place] [address] Dr. Gasper Garber AST [Catalytic activity/Vol] 13 U/L Critically low 15-37 [facility] Comment on above: Performed By: #### TONI MALDONADORO #### [facility] [address] [place] [address] Dr. Gasper Garber Bilirubin [Mass/Vol] 0.6 mg/dL Normal 0.2-1.0 [facility] Comment on above: Performed By: #### E RUR, UMICRO #### [facility] [address] [place] [address] Dr. Gasper Garber Calcium [Mass/Vol] 9.6 mg/dL Normal 8.5-10.1 [facility] Comment on above: Performed By: #### E RUR, UMICRO #### [facility] [address] [place] [address] Dr. Gasper Garber Chloride [Moles/Vol] 106 mmol/L Normal 98-107 [facility] Comment on above: Performed By: #### E RUR, UMICRO #### [facility] [address] [place] [address] Dr. Gasper Garber CO2 [Moles/Vol] 29.0 mmol/L Normal 21.0-32.0 [facility] Comment on above: Performed By: #### E RUR, UMICRO #### [facility] [address] [place] [address] Dr. Gasper Garber Creatinine [Mass/Vol] 1.46 mg/dL Critically high 0.55-1.02 [facility] Comment on above: Performed By: #### E RUR, UMICRO #### [facility] [address] [place] [address] Dr. Gasper Garber EGFR-AF SOUTH AFRICAN 42 mL/min/1.73m2 Critically low >=60 [facility] Comment on above: Performed By: #### E RUR, UMICRO #### [facility] [address] [place] [address] Dr. Gasper Garber EGFR-NON AF SOUTH AFRICAN 35 mL/min/1.73m2 Critically low >=60 [facility] Comment on above: Performed By: #### E RUR, UMICRO #### [facility] [address] [place] [address] Dr. Gasper Garber Globulin (S) [Mass/Vol] 3.3 g/dL Normal [facility] Comment on above: Performed By: #### BERNIE MALDONADO #### [facility] [address] [place] [address] Dr. Gasper Garber Glucose [Mass/Vol] 154 mg/dL Critically high 74-106 [facility] Comment on above: Performed By: #### TONI MALDONADORO #### [facility] [address] [place] [address] Dr. Gasper Garber Potassium [Moles/Vol] 3.2 mmol/L Critically low 3.5-5.1 [facility] Comment on above: Performed By: #### TONI MALDONADORO #### [facility] [address] [place] [address] Dr. Gasper Garber Protein [Mass/Vol] 6.7 g/dL Normal 6.4-8.2 [facility] Comment on above: Performed By: #### TONI MALDONADORO #### [facility] [address] [place] [address] Dr. Gasper Garber Sodium [Moles/Vol] 144 mmol/L Normal 136-145 [facility] Comment on above: Performed By: #### TONI MALDONADORO #### [facility] [address] [place] [address] Dr. Gasper Garber Urea nitrogen [Mass/Vol] 28.0 mg/dL Critically high 7.0-18.0 [facility] Comment on above: Performed By: #### TONI MALDONADORO #### [facility] [address] [place] [address] Dr. Gasper Garber Urea nitrogen/Creatinine [Mass ratio] 19.2 mg/mg Normal [facility] Comment on above: Performed By: #### TONI MALDONADORO #### [facility] [address] [place] [address] Dr. Gasper Garber BNPon 05-14-2022 Natriuretic peptide B (Bld) [Mass/Vol] 1231.0 pg/mL Critically high <=900.0 [facility] Comment on above: Performed By: #### L ACT #### [facility] [address] [address] [address] Gasper Garber CARDIAC SEKOU ADMITon 023 CK [Catalytic activity/Vol] 30 U/L Normal 26-192 [facility] Comment on above: Performed By: #### L ACT #### [facility] [address] [address] [address] Gasper Garber CK.MB [Mass/Vol] 0.54 ng/mL Normal <=3.60 [facility] Comment on above: Performed By: #### L ACT #### [facility] [address] [place] [address] Dr. Gasper Garber HSTROP 9.8 pg/mL Normal 4.0-51.3 [facility] Comment on above: Result Comment: CUT- OFF POINTS HAVE BEEN ESTABLISHED BASED ON THE FOURTH UNIVERSAL DEFINITIONS OF MYOCARDIAL INFARCTION. THE UPPER REFERENCE LIMIT (URL) OF TROPONIN, DEFINED THE 99TH PERCENTILE OF cTnI DISTRIBUTION IN A REFERENCE POPULATION, HAS BEEN CONFIRMED THE DECISION THRESHOLD FOR [place] DIAGNOSIS. Performed By: #### L ACT #### [facility] [address] [place] [address] Dr. Gasper Garber JUSTIN 62 ng/mL Normal 9-82 [facility] Comment on above: Performed By: #### L ACT #### [facility] [address] [place] [address] Dr. Gasper Garber CBC AUTO DIFFon 05-14-2022 BASO # 0.0 103/ul Normal 0.0-0.1 [facility] Comment on above: Performed By: #### U ARMICR #### [facility] [address] [address] [address] Gasper Garber Basophils/100 WBC (Bld) 0.4 % Normal 0.2-2.0 [facility] Comment on above: Performed By: #### U ARMICR #### [facility] [address] [place] [address] Dr. Gasper Garber EO # 0.2 103/ul Normal 0.0-0.7 [facility] Comment on above: Performed By: #### U ARMICR #### [facility] [address] [place] [address] Dr. Gasper Garber Eosinophils/100 WBC (Bld) 2.4 % Normal 0.9-7.0 [facility] Comment on above: Performed By: #### U ARMICR #### [facility] [address] [place] [address] Dr. Gasper Garber Erythrocyte distribution width (RBC) [Ratio] 12.7 % Normal 11.0-15.0 [facility] Comment on above: Performed By: #### U ARMICR #### [facility] [address] [place] [address] Dr. Gasper Garber Hematocrit (Bld) [Volume fraction] 36.4 % Normal 36.0-48.0 [facility] Comment on above: Performed By: #### U ARMICR #### [facility] [address] [place] [address] Dr. Gasper Garber Hemoglobin (Bld) [Mass/Vol] 11.7 g/dL Critically low 12.0-16.0 [facility] Comment on above: Performed By: #### U ARMICR #### [facility] [address] [place] [address] Dr. Gasper Garber IG # 0.03 10e3/ul Normal 0.00-0.03 [facility] Comment on above: Performed By: #### U ARMICR #### [facility] [address] [place] [address] Dr. Gasper Garber IG % 0.3 % Normal 0.0-0.5 [facility] Comment on above: Performed By: #### U ARMICR #### [facility] [address] [place] [address] Dr. Gasper Garber LYMPH # 1.9 103/ul Normal 1.2-3.8 [facility] Comment on above: Performed By: #### U ARMICR #### [facility] [address] [place] [address] Dr. Gasper Garber Lymphocytes/100 WBC (Bld) 20.2 % Critically low 20.5-60.0 [facility] Comment on above: Performed By: #### U ARMICR #### [facility] [address] [place] [address] Dr. Gasper Garber MANUAL DIFF REQ NO Normal [facility] Comment on above: Performed By: #### U ARMICR #### [facility] [address] [place] [address] Dr. Gasper Garber MCH (RBC) [Entitic mass] 30.8 pg Normal 26.7-34.0 [facility] Comment on above: Performed By: #### U ARMICR #### [facility] [address] [place] [address] Dr. Gasper Garber MCHC (RBC) [Mass/Vol] 32.1 g/dL Normal 29.9-35.2 [facility] Comment on above: Performed By: #### U ARMICR #### [facility] [address] [place] [address] Dr. Gasper Garber MCV (RBC) [Entitic vol] 95.8 fL Normal 81.0-99.0 [facility] Comment on above: Performed By: #### U ARMICR #### [facility] [address] [place] [address] Dr. Gasper Garber MONO # 1.2 103/ul Critically high 0.3-0.8 [facility] Comment on above: Performed By: #### U ARMICR #### [facility] [address] [place] [address] Dr. Gasper Garber Monocytes/100 WBC (Bld) 13.0 % Critically high 1.7-12.0 [facility] Comment on above: Performed By: #### U ARMICR #### [facility] [address] [place] [address] Dr. Gasper Garber NEUT # 5.8 103/ul Normal 1.4-6.5 [facility] Comment on above: Performed By: #### U ARMICR #### [facility] [address] [place] [address] Dr. Gasper Garber Neutrophils/100 WBC (Bld) 63.7 % Normal 43.0-75.0 [facility] Comment on above: Performed By: #### U ARMICR #### [facility] [address] [place] [address] Dr. Gasper Garber Platelet mean volume (Bld) [Entitic vol] 10.0 fL Normal 9.5-13.5 [facility] Comment on above: Performed By: #### U ARMICR #### [facility] [address] [place] [address] Dr. Gasper Garber PLT 251 103/ul Normal 150-450 [facility] Comment on above: Performed By: #### U ARMICR #### [facility] [address] [place] [address] Dr. Gasper Garber RBC 3.80 106/ul Critically low 4.20-5.40 [facility] [facility] Comment on above: Performed By: #### U ARMICR #### [facility] [address] [place] [address] Dr. Gasper Garber WBC 9.2 103/ul Normal 4.0-11.0 [facility] Comment on above: Performed By: #### U ARMICR #### [facility] [address] [place] [address] Dr. Gasper Garber BASO # 0.0 103/ul Normal 0.0-0.1 [facility] Comment on above: Performed By: #### U ARMICR #### [facility] [address] [place] [address] Dr. Gasper Garber Basophils/100 WBC (Bld) 0.0 % Critically low 0.2-2.0 [facility] Comment on above: Performed By: #### U ARMICR #### [facility] [address] [place] [address] Dr. Gasper Garber EO # 0.0 103/ul Normal 0.0-0.7 [facility] Comment on above: Performed By: #### U ARMICR #### [facility] [address] [place] [address] Dr. Gasper Garber Eosinophils/100 WBC (Bld) 0.0 % Critically low 0.9-7.0 [facility] Comment on above: Performed By: #### U ARMICR #### [facility] [address] [place] [address] Dr. Gasper Garber Erythrocyte distribution width (RBC) [Ratio] 12.1 % Normal 11.0-15.0 [facility] Comment on above: Performed By: #### U ARMICR #### [facility] [address] [place] [address] Dr. Gasper Garber Hematocrit (Bld) [Volume fraction] 37.9 % Normal 36.0-48.0 [facility] Comment on above: Performed By: #### U ARMICR #### [facility] [address] [place] [address] Dr. Gasper Garber Hemoglobin (Bld) [Mass/Vol] 12.2 g/dL Normal 12.0-16.0 [facility] Comment on above: Performed By: #### U ARMICR #### [facility] [address] [place] [address] Dr. Gasper Garber IG # 0.00 10e3/ul Normal 0.00-0.03 [facility] Comment on above: Performed By: #### U ARMICR #### [facility] [address] [place] [address] Dr. Gasper Garber IG % 0.0 % Normal 0.0-0.5 [facility] Comment on above: Performed By: #### U ARMICR #### [facility] [address] [place] [address] Dr. Gasper Garber LYMPH # 1.3 103/ul Normal 1.2-3.8 [facility] Comment on above: Performed By: #### U ARMICR #### [facility] [address] [place] [address] Dr. Gasper Garber Lymphocytes/100 WBC (Bld) 18.6 % Critically low 20.5-60.0 [facility] Comment on above: Performed By: #### U ARMICR #### [facility] [address] [place], [place] [id number] Dr. Gasper Garber MANUAL DIFF REQ NO Normal [facility] Comment on above: Performed By: #### U ARMICR #### [facility] [address] [place] [address] Dr. Gasper Garber MCH (RBC) [Entitic mass] 30.7 pg Normal 26.7-34.0 [facility] Comment on above: Performed By: #### U ARMICR #### [facility] [address] [place] [address] Dr. Gasper Garber MCHC (RBC) [Mass/Vol] 32.2 g/dL Normal 29.9-35.2 [facility] Comment on above: Performed By: #### U ARMICR #### [facility] [address] [place] [address] Dr. Gasper Garber MCV (RBC) [Entitic vol] 95.5 fL Normal 81.0-99.0 [facility] Comment on above: Performed By: #### U ARMICR #### [facility] [address] [place] [address] Dr. Gasper Garber MONO # 0.8 103/ul Normal 0.3-0.8 [facility] Comment on above: Performed By: #### U ARMICR #### [facility] [address] [place] [address] Dr. Gasper Garber Monocytes/100 WBC (Bld) 11.6 % Normal 1.7-12.0 [facility] Comment on above: Performed By: #### U ARMICR #### [facility] [address] [place] [address] Dr. Gasper Garber NEUT # 5.0 103/ul Normal 1.4-6.5 [facility] Comment on above: Performed By: #### U ARMICR #### [facility] [address] [place] [address] Dr. Gasper Garber Neutrophils/100 WBC (Bld) 69.8 % Normal 43.0-75.0 [facility] Comment on above: Performed By: #### U ARMICR #### [facility] [address] [address] [address] Gasper Garber Platelet mean volume (Bld) [Entitic vol] 9.8 fL Normal 9.5-13.5 [facility] Comment on above: Performed By: #### U ARMICR #### [facility] [address] [address] [address] Gasper Garber PLT 258 103/ul Normal 150-450 [facility] Comment on above: Performed By: #### U ARMICR #### [facility] [address] [address] [address] Gasper Garber RBC 3.97 106/ul Critically low 4.20-5.40 [facility] Comment on above: Performed By: #### U ARMICR #### [facility] [address] [address] [address] Gasper Garber WBC 7.1 103/ul Normal 4.0-11.0 [facility] Comment on above: Performed By: #### U ARMICR #### [facility] [address] HEAD WO CONon [...] SAI UNLU Date: 2022-05-14 00:20 Normal [facility] Covid-19 PCR (CVDTB)on 04-20 SARS-CoV-2 (COVID-19) RNA ANA LUISA+probe Ql (Unsp spec) Not detected Normal NOT DETECTED [facility] Comment on above: Result Comment: When [...] for this test is supported by the Microbiology Lab Analyst of Health and Human Service's declaration that [...] used). Performed By: #### L ACT #### [facility] [address] [place] [address] Dr. Gasper Garber ER URINE PROFILEon 3 Bilirubin Ql (U) Negative Normal NEGATIVE [facility] Comment on above: Performed By: #### A CETON #### [facility] [address] [place] [address] Dr. Gasper Garber Clarity (U) CLEAR Normal CLEAR [facility] Comment on above: Performed By: #### A CETON #### [facility] [address] [place] [address] Dr. Gasper Garber Color (U) LT. YELLOW Normal YELLOW [facility] Comment on above: Performed By: #### A CETON #### [facility] [address] [place] [address] Dr. Gasper Garber ERUAHD A micrscopic examina tion will be performed if indicated. Normal [facility] Comment on above: Performed By: #### A CETON #### [facility] [address] [place] [address] Dr. Gasper Garber Glucose Ql (U) Negative Normal NEGATIVE [facility] Comment on above: Performed By: #### A CETON #### [facility] [address] [place] [address] Dr. Gasper Garber Hemoglobin Ql (U) Negative Normal NEGATIVE [facility] Comment on above: Performed By: #### A CETON #### [facility] [address] [place] [address] Dr. Gasper Garber Ketones Ql (U) Negative Normal NEGATIVE [facility] Comment on above: Performed By: #### A CETON #### [facility] [address] [place] [address] Dr. Gasper Garber LEUKOCYTES Negative Normal NEGATIVE [facility] Comment on above: Performed By: #### A CETON #### [facility] [address] [place] [address] Dr. Gasper Garber Nitrite Ql (U) Positive Abnormal NEGATIVE [facility] Comment on above: Performed By: #### A CETON #### [facility] [address] [place] [address] Dr. Gasper Garber pH (U) 7.0 [pH] Normal 5-9 [facility] Comment on above: Performed By: #### A CETON #### [facility] [address] [place] [address] Dr. Gasper Garber SPEC GRAVITY <=1.005 Abnormal 1.005-<=1.[address] [place] [address] Comment on above: Performed By: #### A CETON #### [facility] [address] [place] [address] Dr. Gasper Garber UA PROTEIN Negative Normal NEGATIVE/ TRACE [facility] Comment on above: Performed By: #### A CETON #### [facility] [address] [place] [address] Dr. Gasper Garber UR MICRO IND INDICATED Normal [facility] Comment on above: Performed By: #### A CETON #### [facility] [address] [place] [address] Dr. Gasper Garber Urobilinogen Qn (U) 0.2 {Kaushik'U}/dL Normal 0.2 - 1. 0 [facility] Comment on above: Performed By: #### A CETON #### [facility] [address] [place] [address] Dr. Gasper Garber MAGNESIUMon 05-14-2022 Magnesium [Mass/Vol] 2.4 mg/dL Normal 1.8-2.4 [facility] Comment on above: Performed By: #### BERNIE MALDONADO #### [facility] [address] [place] [address] Dr. Gasper Garber PROF 14(COMP METB)on 023 Albumin [Mass/Vol] 3.5 g/dL Normal 3.4-5.0 [facility] Comment on above: Performed By: #### BERNIE MALDONADO #### [facility] [address] [place] [address] Dr. Gasper Garber Albumin/Globulin [Mass ratio] 1.0 {ratio} Normal [facility] Comment on above: Performed By: #### Bernice HERNDON UMICRO #### [facility] [address] [address] [address] Gasper Garber ALP [Catalytic activity/Vol] 82 U/L Normal 46-116 [facility] Comment on above: Performed By: #### Bernice HERNDON UMICRO #### [facility] [address] [place] [address] Dr. Gasper Garber ALT [Catalytic activity/Vol] 22 U/L Normal 14-59 [facility] Comment on above: Performed By: #### Bernice HERNDON, UMICRO #### [facility] [address] [place] [address] Dr. aGsper Garber Anion gap [Moles/Vol] 11.1 mmol/L Normal [facility] Comment on above: Performed By: #### Bernice HERNDON UMICRO #### [facility] [address] [place] [address] Dr. Gasper Garber AST [Catalytic activity/Vol] 14 U/L Critically low 15-37 [facility] Comment on above: Performed By: #### Bernice HERNDON UMICRO #### [facility] [address] [place] [address] Dr. Gasper Garber Bilirubin [Mass/Vol] 0.5 mg/dL Normal 0.2-1.0 [facility] Comment on above: Performed By: #### Bernice HERNDON UMICRO #### [facility] [address] [place] [address] Dr. Gasper Garber Calcium [Mass/Vol] 9.8 mg/dL Normal 8.5-10.1 [facility] Comment on above: Performed By: #### Bernice HERNDON UMICRO #### [facility] [address] [place] [address] Dr. Gasper Garber Chloride [Moles/Vol] 99 mmol/L Normal 98-107 [facility] Comment on above: Performed By: #### Bernice HERNDON UMICRO #### [facility] [address] [place] [address] Dr. Gasper Garber CO2 [Moles/Vol] 30.5 mmol/L Normal 21.0-32.0 [facility] Comment on above: Performed By: #### BERNIE MALDONADO #### [facility] [address] [place] [address] Dr. Gasper Garber Creatinine [Mass/Vol] 1.75 mg/dL Critically high 0.55-1.02 [facility] Comment on above: Performed By: #### TONI MALDONADORO #### [facility] [address] [place] [address] Dr. Gasper Garber EGFR-AF SOUTH AFRICAN 34 mL/min/1.73m2 Critically low >=60 [facility] Comment on above: Performed By: #### TONI MALDONADORO #### [facility] [address] [place] [address] Dr. Gasper Garber EGFR-NON AF SOUTH AFRICAN 28 mL/min/1.73m2 Critically low >=60 [facility] Comment on above: Performed By: #### TONI MALDONADORO #### [facility] [address] [place] [address] Dr. Gasper Garber Globulin (S) [Mass/Vol] 3.4 g/dL Normal [facility] Comment on above: Performed By: #### TONI MALDONADORO #### [facility] [address] [place] [address] Dr. Gasper Garber Glucose [Mass/Vol] 154 mg/dL Critically high 74-106 [facility] Comment on above: Performed By: #### TONI MALDONADORO #### [facility] [address] [place] [address] Dr. Gasper Garber Potassium [Moles/Vol] 3.6 mmol/L Normal 3.5-5.1 [facility] Comment on above: Performed By: #### TONI MALDONADORO #### [facility] [address] [place] [address] Dr. Gasper Garber Protein [Mass/Vol] 6.9 g/dL Normal 6.4-8.2 [facility] Comment on above: Performed By: #### BERNIE MALDONADO #### [facility] [address] [address] [address] Gasper Garber Sodium [Moles/Vol] 137 mmol/L Normal 136-145 [facility] Comment on above: Performed By: #### Bernice HERNDON, TONIRO #### [facility] [address] [place] [address] Dr. Gasper Garber Urea nitrogen [Mass/Vol] 35.0 mg/dL Critically high 7.0-18.0 [facility] Comment on above: Performed By: #### TONI MALDONADORO #### [facility] [address] [place] [address] Dr. Gasper Garber Urea nitrogen/Creatinine [Mass ratio] 20.0 mg/mg Normal [facility] Comment on above: Performed By: #### TONI MALDONADORO #### [facility] [address] [place] [address] Dr. Gasper Garber Albumin [Mass/Vol] 3.7 g/dL Normal 3.4-5.0 [facility] Comment on above: Performed By: #### L ACT #### [facility] [address] [place] [address] Dr. Gasper Garber Albumin/Globulin [Mass ratio] 1.1 {ratio} Normal [facility] Comment on above: Performed By: #### L ACT #### [facility] [address] [place] [address] Dr. Gasper Garber ALP [Catalytic activity/Vol] 84 U/L Normal 46-116 [facility] Comment on above: Performed By: #### L ACT #### [facility] [address] [place] [address] Dr. Gasper Garber ALT [Catalytic activity/Vol] 26 U/L Normal 14-59 [facility] Comment on above: Performed By: #### L ACT #### [facility] [address] [place] [address] Dr. Gasper Garber Anion gap [Moles/Vol] 8.5 mmol/L Normal [facility] Comment on above: Performed By: #### L ACT #### [facility] [address] [address] [address] Gasper Garber AST [Catalytic activity/Vol] 16 U/L Normal 15-37 [facility] Comment on above: Performed By: #### L ACT #### [facility] [address] [address] [address] Gasper Garber Bilirubin [Mass/Vol] 0.4 mg/dL Normal 0.2-1.0 [facility] Comment on above: Performed By: #### L ACT #### [facility] [address] [address] [address] Gasper Garber Calcium [Mass/Vol] 9.8 mg/dL Normal 8.5-10.1 [facility] Comment on above: Performed By: #### L ACT #### [facility] [address] [address] [address] Gasper Garber Chloride [Moles/Vol] 99 mmol/L Normal 98-107 [facility] Comment on above: Performed By: #### L ACT #### [facility] [address] [address] [address] Gasper Garber CO2 [Moles/Vol] 32.3 mmol/L Critically high 21.0-32.0 [facility] Comment on above: Performed By: #### L ACT #### [facility] [address] [address] [address] Gasper Garber Creatinine [Mass/Vol] 1.84 mg/dL Critically high 0.55-1.02 [facility] Comment on above: Performed By: #### L ACT #### [facility] [address] [address] [address] Gasper Garber EGFR-AF SOUTH AFR[place] 33 mL/min/1.73m2 Critically low >=60 [facility] Comment on above: Performed By: #### L ACT #### [facility] [address] [address] [address] Gasper Garber EGFR-NON AF SOUTH AFRICAN 27 mL/min/1.73m2 Critically low >=60 [facility] Comment on above: Performed By: #### L ACT #### [facility] [address] [address] [address] Gasper Garber Globulin (S) [Mass/Vol] 3.4 g/dL Normal [facility] Comment on above: Performed By: #### L ACT #### [facility] [address] [address] [address] Gasper Garber Glucose [Mass/Vol] 180 mg/dL Critically high 74-106 [facility] Comment on above: Performed By: #### L ACT #### [facility] [address] [address] [address] Gasper Garber Potassium [Moles/Vol] 3.8 mmol/L Normal 3.5-5.1 [facility] Comment on above: Performed By: #### L ACT #### [facility] [address] [place] [address] Dr. Gasper Garber Protein [Mass/Vol] 7.1 g/dL Normal 6.4-8.2 [facility] Comment on above: Performed By: #### L ACT #### [facility] [address] [place] [address] Dr. Gasper Garber Sodium [Moles/Vol] 136 mmol/L Normal 136-145 [facility] Comment on above: Performed By: #### L ACT #### [facility] [address] [place] [address] Dr. Gasper Garber Urea nitrogen [Mass/Vol] 35.0 mg/dL Critically high 7.0-18.0 [facility] Comment on above: Performed By: #### L ACT #### [facility] [address] [place] [address] Dr. Gasper Garber Urea nitrogen/Creatinine [Mass ratio] 19.0 mg/mg Normal [facility] Comment on above: Performed By: #### L ACT #### [facility] [address] [id number] [address] Gasper Garber PROTIMEon 05-14-2022 INR Coag (PPP) [Relative time] 0.95 {INR} Normal [facility] Comment on above: Performed By: #### U RCX #### [facility] [address] [place] [address] Dr. Gasper Garber INR GUIDELINES SEE BELOW Normal [facility] Comment on above: Result Comment: JESUS RED INR: 2.0 - 3.0 CONDITIONS NOT LISTED BELOW 2.5 - 3.5 FOR PROSTHETIC HEART VALVE REPLACEMENT 2.5 - 3.5 RECURRENT THROMBOSIS Performed By: #### U RCX #### [facility] [address] [place] [address] Dr. Gasper Garber PT Coag (PPP) [Time] 10.1 s Normal 9.0-11.6 [facility] Comment on above: Performed By: #### U RCX #### [facility] [address] [place] [address] Dr. Gasper Garber PTTon 05-14-2022 aPTT Coag (Bld) [Time] 24.7 s Normal 22.3-36.2 [facility] Comment on above: Performed By: #### E BERNIE HERNDON #### [facility] [address] [place] [address] Dr. Gasper Garber URINE MICROSCOPIC ONLYon BACTERIA LARGE Abnormal NONE SEEN [facility] Comment on above: Performed By: #### U ARMICR #### [facility] [address] [place] [address] Dr. Gasper Garber Bacteria identified Cx Nom (U) INDICATED Normal [facility] Comment on above: Performed By: #### U ARMICR #### [facility] [address] [place] [address] Dr. Gasper Garber CAST NONE SEEN Normal NONE SEEN [facility] Comment on above: Performed By: #### U ARMICR #### [facility] [address] [place] [address] Dr. Gasper Garber Crystals LM Nom (Urine sed) NONE SEEN Normal NONE SEEN [facility] Comment on above: Performed By: #### U ARMICR #### [facility] [address] [place] [address] Dr. Gasper Garber Epithelial cells LM Ql (Urine sed) MANY Abnormal NONE SEEN /RARE [facility] Comment on above: Performed By: #### U ARMICR #### [facility] [address] [address] [address] Gasper Garber MUCOUS NONE SEEN Normal NONE SEEN [facility] Comment on above: Performed By: #### U ARMICR #### [facility] [address] [place] [address] Dr. Gasper Garber RBC 0-2 Normal 0-2 [facility] Comment on above: Performed By: #### U ARMICR #### [facility] [address] [address] [address] Gasper Garber WBC 0-2 Abnormal NONE SEEN [facility] Comment on above: Performed By: #### U ARMICR #### [facility] [address] [place] [address] Dr. Gasper Garber XR CHEST 1 Von [...] SAI ORTA Date: 2022-05-14 00:19 Normal [facility] XR LSPINE 2_3 VIEWSon 2022 [...] by: CHRYSTAL LAUREANO Date: 2022-05-05 15:30 Normal [facility] GLYCOHEMOGLOBIN A1Con 2021 ADA RECOMMENDATION SEE BELOW Normal [facility] Comment on above: Result Comment: ADA RECOMMENDED LIMIT 4.0 - 6.0 ADA THERAPEUTIC TARGET < 7.0 ACTION SUGGESTED > 7.0 Performed By: #### E BERNIE HERNDON #### [facility] [address] [address] [address] Gasper Garber Glucose [Mass/Vol] 169 mg/dL Normal [facility] Comment on above: Performed By: #### E YANICK, TONIRO #### [facility] [address] [address] [address] Gasper Garber HbA1c (Bld) [Mass fraction] 7.5 % Critically high 4.5-6.2 [facility] Comment on above: Performed By: #### E YANICK, TONIRO #### [facility] [address] [place] [address] Dr. Gasper Garber NM GASTRIC EMPTYon 2 [...] NASRIN CHIU Date: 2021-09-09 13:23 Normal [facility] ACETONE SERUMon 08-31-2021 ACETONE Negative Normal NEGATIVE [facility] Comment on above: Performed By: #### A CETON #### [facility] [address] [place] [address] Dr. Gsaper Garber CBC AUTO DIFFon 08-31-2021 BASO # 0.0 103/ul Normal 0.0-0.1 [facility] Comment on above: Performed By: #### U DORY #### [facility] [address] [address] [address] Gasper Garber Basophils/100 WBC (Bld) 0.5 % Normal 0.2-2.0 [facility] Comment on above: Performed By: #### U DONOVANR #### [facility] [address] [place] [address] Dr. Gasper Garber EO # 0.2 103/ul Normal 0.0-0.7 [facility] Comment on above: Performed By: #### U ARMICR #### [facility] [address] [place] [address] Dr. Gasper Garber Eosinophils/100 WBC (Bld) 1.9 % Normal 0.9-7.0 [facility] Comment on above: Performed By: #### U ARMICR #### [facility] [address] [place] [address] Dr. Gasper Garber Erythrocyte distribution width (RBC) [Ratio] 12.8 % Normal 11.0-15.0 [facility] Comment on above: Performed By: #### U ARMICR #### [facility] [address] [place] [address] Dr. Gasper Garber Hematocrit (Bld) [Volume fraction] 36.2 % Normal 36.0-48.0 [facility] Comment on above: Performed By: #### U ARMICR #### [facility] [address] [place] [address] Dr. Gasper Garber Hemoglobin (Bld) [Mass/Vol] 11.4 g/dL Critically low 12.0-16.0 [facility] Comment on above: Performed By: #### U ARMICR #### [facility] [address] [place] [address] Dr. Gasper Garber IG # 0.03 10e3/ul Normal 0.00-0.03 [facility] Comment on above: Performed By: #### U ARMICR #### [facility] [address] [place] [address] Dr. Gasper Garber IG % 0.4 % Normal 0.0-0.5 [facility] Comment on above: Performed By: #### U ARMICR #### [facility] [address] [place] [address] Dr. Gasper Garber LYMPH # 1.3 103/ul Normal 1.2-3.8 [facility] Comment on above: Performed By: #### U ARMICR #### [facility] [address] [address] [address] Gasper Garber Lymphocytes/100 WBC (Bld) 15.2 % Critically low 20.5-60.0 [facility] Comment on above: Performed By: #### U ARMICR #### [facility] [address] [address] [address] Gasper Garber MANUAL DIFF REQ NO Normal [facility] Comment on above: Performed By: #### U ARMICR #### [facility] [address] [address] [address] Gasper Garber MCH (RBC) [Entitic mass] 30.6 pg Normal 26.7-34.0 [facility] Comment on above: Performed By: #### U ARMICR #### [facility] [address] [place] [address] Dr. Gasper Garber MCHC (RBC) [Mass/Vol] 31.5 g/dL Normal 29.9-35.2 [facility] Comment on above: Performed By: #### U ARMICR #### [facility] [address] [address] [address] Gasper Garber MCV (RBC) [Entitic vol] 97.1 fL Normal 81.0-99.0 [facility] Comment on above: Performed By: #### U ARMICR #### [facility] [address] [address] [address] Gasper Garber MONO # 0.8 103/ul Normal 0.3-0.8 [facility] Comment on above: Performed By: #### U ARMICR #### [facility] [address] [address] [address] Gasper Garber Monocytes/100 WBC (Bld) 9.8 % Normal 1.7-12.0 [facility] Comment on above: Performed By: #### U ARMICR #### [facility] [address] [address] [address] Gasper Garber NEUT # 6.1 103/ul Normal 1.4-6.5 [facility] Comment on above: Performed By: #### U ARMICR #### [facility] [address] [address] [address] Gasper Garber Neutrophils/100 WBC (Bld) 72.2 % Normal 43.0-75.0 [facility] Comment on above: Performed By: #### U ARMICR #### [facility] [address] [address] [address] Gasper Garber Platelet mean volume (Bld) [Entitic vol] 10.2 fL Normal 9.5-13.5 [facility] Comment on above: Performed By: #### U ARMICR #### [facility] [address] [place] [address] Dr. Gasper Garber PLT 249 103/ul Normal 150-450 [facility] Comment on above: Performed By: #### U ARMICR #### [facility] [address] [address] [address] Gasper Garber RBC 3.73 106/ul Critically low 4.20-5.40 [facility] Comment on above: Performed By: #### U ARMICR #### [facility] [address] [place] [address] Dr. Gasper Garber WBC 8.4 103/ul Normal 4.0-11.0 [facility] Comment on above: Performed By: #### U ARMICR #### [facility] [address] [address] [address] Gasper Garber CULTURE URINEon 08-31-2021 CULTURE URINE Culture Observations : HEAVY GROWTH OF MIXED GENITAL KADEEM. NO POTENTIAL PATHOGENS SEEN. Normal [facility] Comment on above: Performed By: #### A CETON #### [facility] [address] [place] [address] Dr. Gasper Garber ER URINE PROFILEon Bilirubin Ql (U) SMALL Abnormal NEGATIVE [facility] Comment on above: Performed By: #### E RUR, UMICRO #### [facility] [address] [address] [address] Gasper Garber Clarity (U) CLOUDY Abnormal CLEAR [facility] Comment on above: Performed By: #### Bernice HERNDON UMICRO #### [facility] [address] [address] [address] Gasper Garber Color (U) YELLOW Normal YELLOW [facility] Comment on above: Performed By: #### Bernice HERNDON UMICRO #### [facility] [address] [address] [address] Gasper Garber ERUAHD A micrscopic examina tion will be performed if indicated. Normal [facility] Comment on above: Performed By: #### Bernice HERNDON UMICRO #### [facility] [address] [place] [address] Dr. Gasper Garber Glucose Ql (U) Negative Normal NEGATIVE [facility] Comment on above: Performed By: #### Bernice HERNDON UMICRO #### [facility] [address] [place] [address] Dr. Gasper Garber Hemoglobin Ql (U) Negative Normal NEGATIVE [facility] Comment on above: Performed By: #### Bernice HERNDON UMICRO #### [facility] [address] [place] [address] Dr. Gasper Garber Ketones Ql (U) Negative Normal NEGATIVE [facility] Comment on above: Performed By: #### Bernice HERNDON UMICRO #### [facility] [address] [place] [address] Dr. Gasper Garber LEUKOCYTES TRACE Abnormal NEGATIVE [facility] Comment on above: Performed By: #### Bernice HERNDON UMICRO #### [facility] [address] [place] [address] Dr. Gasper Garber Nitrite Ql (U) Negative Normal NEGATIVE [facility] Comment on above: Performed By: #### Bernice HERNDON UMICRO #### [facility] [address] [place] [address] Dr. Gasper Garber pH (U) 5.5 [pH] Normal 5-9 [facility] Comment on above: Performed By: #### Bernice HERNDON UMICRO #### [facility] [address] [place] [address] Dr. Gasper Garber Protein (U) [Mass/Vol] 100 mg/dL Abnormal NEGATIVE/ TRACE [facility] Comment on above: Performed By: #### TONI MALDONADORO #### [facility] [address] [place] [address] Dr. Gasper Garber SPEC GRAVITY >=1.030 Abnormal 1.005-<=1.0 25 [facility] Comment on above: Performed By: #### TONI MALDONADORO #### [facility] [address] [place] [address] Dr. Gasper Garber UR MICRO IND INDICATED Normal [facility] Comment on above: Performed By: #### TONI MALDONADORO #### [facility] [address] [place] [address] Dr. Gasper Garber Urobilinogen Qn (U) 1.0 {Kaushik'U}/dL Normal 0.2 - 1. 0 [facility] Comment on above: Performed By: #### TONI MALDONADORO #### [facility] [address] [place] [address] Dr. Gasper Garber GI PANEL (PCR)on 08-31-2021 Adenovirus F 40/41 Not detected Normal NOT DETECTED [facility] Comment on above: Performed By: #### TONI MALDONADORO #### [facility] [address] [place] [address] Dr. Gasper Garber Astrovirus Not detected Normal NOT DETECTED [facility] Comment on above: Performed By: #### TONI MALDONADORO #### [facility] [address] [place] [address] Dr. Gasper Garber C. Diff toxin A/B Not detected Normal NOT DETECTED [facility] Comment on above: Performed By: #### TONI MALDONADORO #### [facility] [address] [place] [address] Dr. Gasper Garber Campylobacter Not detected Normal NOT DETECTED [facility] Comment on above: Performed By: #### TONI MALDONADORO #### [facility] [address] [place] [address] Dr. Gasper Garber Cryptosporidium Not detected Normal NOT DETECTED [facility] Comment on above: Performed By: #### E YANICK UMICRO #### [facility] [address] [place] [address] Dr. Gasper Garber Cyclos. Cayetanensis Not detected Normal NOT DETECTED [facility] Comment on above: Performed By: #### E YANICK UMICRO #### [facility] [address] [place] [address] Dr. Gasper Garber E. Coli O157 Not Applicable Normal Not Applicable [facility] Comment on above: Performed By: #### E YANICK UMICRO #### [facility] [address] [place] [address] Dr. Gasper Garber E. histolytica Not detected Normal NOT DETECTED [facility] Comment on above: Performed By: #### Bernice HERNDON UMICRO #### [facility] [address] [place] [address] Dr. Gasper Garber EAEC Not detected Normal NOT DETECTED [facility] Comment on above: Performed By: #### Bernice HERNDON UMICRO #### [facility] [address] [place] [address] Dr. Gasper Garber EIEC Not detected Normal NOT DETECTED [facility] Comment on above: Performed By: #### Bernice HERNDON UMICRO #### [facility] [address] [place] [address] Dr. Gasper Garber EPEC Not detected Normal NOT DETECTED [facility] Comment on above: Performed By: #### E YANICK UMICRO #### [facility] [address] [place] [address] Dr. Gasper Garber ETEC Not detected Normal NOT DETECTED [facility] Comment on above: Performed By: #### E YANICK, UMICRO #### [facility] [address] [place] [address] Dr. Gasper Garber G. Lamblia Not detected Normal NOT DETECTED [facility] Comment on above: Performed By: #### E RUCrystal, UMICRO #### [facility] [address] [address] [address] Gasper LOPEZ CONTROLS PASSED Normal [facility] Comment on above: Performed By: #### JOANNE MALDONADOICRO #### [facility] [address] [address] [address] Gasper CALABRESE HEADER GI PANEL BACTERIA Normal [facility] Comment on above: Performed By: #### Bernice HERNDON UMICRO #### [facility] [address] [address] [address] Gasper NUNEZ ECOLI GI PANEL DIARRHEAGEN IC E.COLI / SHIGELLA Normal [facility] Comment on above: Performed By: #### JOANNE MALDONADOICRO #### [facility] [address] [place] [address] Dr. Gasper NUNEZ INFO SEE BELOW Normal [facility] Comment on above: Result Comment: EAEC - Enteroaggregative E. Coli EPEC- Enteropathogenic E. Coli ETEC- Enterotoxigenic E. Coli lt/st STEC- Shigella-like toxin-producing E. Coli stx1/stx2 EIEC- Shigella/Enteroinvasive E. Coli Performed By: #### TONI MALDONADORO #### [facility] [address] [place] [address] Dr. Gasper NUNEZ PARASITES GI PANEL PARASITES Normal [facility] Comment on above: Performed By: #### TONI MALDONADORO #### [facility] [address] [place] [address] Dr. Gasper NUNEZ VIRUS GI PANEL VIRUSES Normal The [facility] Comment on above: Performed By: #### Bernice HERNDON UMICRO #### [facility] [address] [address] [address] Gasper Garber Norovirus GI/GII Detected Abnormal NOT DETECTED [facility] Comment on above: Performed By: #### Bernice HERNDON UMICRO #### [facility] [address] [address] [address] Gasper Garber P. Shigelloides Not detected Normal NOT DETECTED [facility] Comment on above: Performed By: #### Bernice HERNDON UMICRO #### [facility] [address] [place] [address] Dr. Gasper Garber Rotavirus A Not detected Normal NOT DETECTED [facility] Comment on above: Performed By: #### Bernice HERNDON UMICRO #### [facility] [address] [place] [address] Dr. Gasper Garber Salmonella Not detected Normal NOT DETECTED [facility] Comment on above: Performed By: #### E YANICK UMICRO #### [facility] [address] [place] [address] Dr. Gasper Garber Sapovirus Not detected Normal NOT DETECTED [facility] Comment on above: Performed By: #### Bernice HERNDON ICRO #### [facility] [address] [place] [address] Dr. Gasper Garber STEC Not detected Normal NOT DETECTED [facility] Comment on above: Performed By: #### Bernice HERNDON ICRO #### [facility] [address] [place] [address] Dr. Gasper Garber Vibrio Not detected Normal NOT DETECTED [facility] Comment on above: Performed By: #### Bernice HERNDON ICRO #### [facility] [address] [place] [address] Dr. Gasper Garber Vibrio Cholera Not detected Normal NOT DETECTED [facility] Comment on above: Performed By: #### Bernice HERNDON ICRO #### [facility] [address] [place] [address] Dr. Gasper Garber Y. Enterocolitica Not detected Normal NOT DETECTED [facility] Comment on above: Performed By: #### Bernice HERNDON ICRO #### [facility] [address] [place] [address] Dr. Gasper Garber LACTATE/LACTIC ACIDon 2021 Lactate [Moles/Vol] 1.0 mmol/L Normal 0.4-1.9 [facility] Comment on above: Performed By: #### P T, PTT #### [facility] [address] [place] [address] Dr. Gasper Garber LIPASEon 08-31-2021 Lipase [Catalytic activity/Vol] 166.0 U/L Normal 73.0-393.0 [facility] Comment on above: Performed By: #### U ARMICR #### [facility] [address] [place] [address] Dr. Gasper Garber PROF 14(COMP METB)on 022 Albumin [Mass/Vol] 3.7 g/dL Normal 3.4-5.0 [facility] Comment on above: Performed By: #### U ARMICR #### [facility] [address] [place] [address] Dr. Gasper Garber Albumin/Globulin [Mass ratio] 1.0 {ratio} Normal [facility] Comment on above: Performed By: #### U ARMICR #### [facility] [address] [place] [address] Dr. Gasper Garber ALP [Catalytic activity/Vol] 75 U/L Normal 46-116 [facility] Comment on above: Performed By: #### U ARMICR #### [facility] [address] [place] [address] Dr. Gasper Garber ALT [Catalytic activity/Vol] 44 U/L Normal 14-59 [facility] Comment on above: Performed By: #### U ARMICR #### [facility] [address] [place] [address] Dr. Gasper Garber Anion gap [Moles/Vol] 15.3 mmol/L Normal [facility] Comment on above: Performed By: #### U ARMICR #### [facility] [address] [place] [address] Dr. Gasper Garber AST [Catalytic activity/Vol] 27 U/L Normal 15-37 [facility] Comment on above: Performed By: #### U ARMICR #### [facility] [address] [place] [address] Dr. Gasper Garber Bilirubin [Mass/Vol] 0.5 mg/dL Normal 0.2-1.0 [facility] Comment on above: Performed By: #### U ARMICR #### [facility] [address] [address] [address] Gasper Garber Calcium [Mass/Vol] 9.7 mg/dL Normal 8.5-10.1 [facility] Comment on above: Performed By: #### U ARMICR #### [facility] [address] [address] [address] Gasper Garber Chloride [Moles/Vol] 105 mmol/L Normal 98-107 [facility] Comment on above: Performed By: #### U ARMICR #### [facility] [address] [address] [address] Gasper Garber CO2 [Moles/Vol] 24.0 mmol/L Normal 21.0-32.0 [facility] Comment on above: Performed By: #### U ARMICR #### [facility] [address] [place] [address] Dr. Gasper Garber Creatinine [Mass/Vol] 2.20 mg/dL Critically high 0.55-1.02 [facility] Comment on above: Performed By: #### U ARMICR #### [facility] [address] [address] [address] Gasper Garber EGFR-AF SOUTH AFRICAN 26 mL/min/1.73m2 Critically low >=60 [facility] Comment on above: Performed By: #### U ARMICR #### [facility] [address] [address] [address] Gasper Garber EGFR-NON AF SOUTH AFR[place] 22 mL/min/1.73m2 Critically low >=60 [facility] Comment on above: Performed By: #### U ARMICR #### [facility] [address] [address] [address] Gasper Garber Globulin (S) [Mass/Vol] 3.7 g/dL Normal [facility] Comment on above: Performed By: #### U ARMICR #### [facility] [address] [address] [address] Gasper Garber Glucose [Mass/Vol] 280 mg/dL Critically high 74-106 [facility] Comment on above: Performed By: #### U ARMICR #### [facility] [address] [address] [address] Gasper Garber Potassium [Moles/Vol] 4.3 mmol/L Normal 3.5-5.1 [facility] Comment on above: Performed By: #### U ARMICR #### [facility] [address] [address] [address] Gasper Garber Protein [Mass/Vol] 7.4 g/dL Normal 6.4-8.2 [facility] Comment on above: Performed By: #### U ARMICR #### [facility] [address] [address] [address] Gasper Garber Sodium [Moles/Vol] 140 mmol/L Normal 136-145 [facility] Comment on above: Performed By: #### U ARMICR #### [facility] [address] [place] [address] Dr. Gasper Garber Urea nitrogen [Mass/Vol] 29.0 mg/dL Critically high 7.0-18.0 [facility] Comment on above: Performed By: #### U ARMICR #### [facility] [address] [address] [address] Gasper Garber Urea nitrogen/Creatinine [Mass ratio] 13.2 mg/mg Normal [facility] Comment on above: Performed By: #### U ARMICR #### [facility] [address] [address] [address] Gasper Garber TSHon 08-31-2021 TSH 0.923 uIU/mL Normal 0.358-3.740 [facility] Comment on above: Performed By: #### U ARMICR #### [facility] [address] [address] [address] Gasper Garber URINE MICROSCOPIC ONLYon BACTERIA SMALL Abnormal NONE SEEN [facility] Comment on above: Performed By: #### E BERNIE HERNDON #### [facility] [address] [address] [address] Gasper Garber Bacteria identified Cx Nom (U) INDICATED Normal [facility] Comment on above: Performed By: #### E YANICK, UMICRO #### [facility] [address] [place] [address] Dr. Gasper Garber CAST NONE SEEN Normal NONE SEEN [facility] Comment on above: Performed By: #### E RUR, UMICRO #### [facility] [address] [place] [address] Dr. Gasper Garber Crystals LM Nom (Urine sed) NONE SEEN Normal NONE SEEN [facility] Comment on above: Performed By: #### E YANICK, UMICRO #### [facility] [address] [place] [address] Dr. Gasper Garber Epithelial cells LM Ql (Urine sed) MANY Abnormal NONE SEEN /RARE [facility] Comment on above: Performed By: #### Bernice HERNDON, UMICRO #### [facility] [address] [place] [address] Dr. Gasper Garber MUCOUS NONE SEEN Normal NONE SEEN [facility] Comment on above: Performed By: #### Bernice HERNDON UMICRO #### [facility] [address] [place] [address] Dr. Gasper Garber RBC 0-2 Normal 0-2 [facility] Comment on above: Performed By: #### Bernice HERNDON UMICRO #### [facility] [address] [place] [address] Dr. Gasper Garber WBC 2-5 Abnormal NONE SEEN [facility] Comment on above: Performed By: #### Bernice HERNDON UMICRO #### [facility] [address] [place] [address] Dr. Gasper Garber XR ABD FLAT UP_PA [...] CHRYSTAL LAUREANO Date: 2021-08-31 15:55 Normal [facility] CBC AUTO DIFFon 08-27-2021 BASO # 0.1 103/ul Normal 0.0-0.1 [facility] Comment on above: Performed By: #### BERNIE MALDONADO #### [facility] [address] [place] [address] Dr. Gasper Garber Basophils/100 WBC (Bld) 0.6 % Normal 0.2-2.0 [facility] Comment on above: Performed By: #### BERNIE MALDONADO #### [facility] [address] [place] [address] Dr. Gasper Garber EO # 0.0 103/ul Normal 0.0-0.7 [facility] Comment on above: Performed By: #### BERNIE MALDONADO #### [facility] [address] [place] [address] Dr. Gasper Garber Eosinophils/100 WBC (Bld) 0.5 % Critically low 0.9-7.0 [facility] Comment on above: Performed By: #### BERNIE MALDONADO #### [facility] [address] [place] [address] Dr. Gasper Garber Erythrocyte distribution width (RBC) [Ratio] 13.0 % Normal 11.0-15.0 [facility] Comment on above: Performed By: #### BERNIE MALDONADO #### [facility] [address] [place] [address] Dr. Gasper Garber Hematocrit (Bld) [Volume fraction] 35.6 % Critically low 36.0-48.0 [facility] Comment on above: Performed By: #### BERNIE MALDONADO #### [facility] [address] [place] [address] Dr. Gasper Garber Hemoglobin (Bld) [Mass/Vol] 11.5 g/dL Critically low 12.0-16.0 [facility] Comment on above: Performed By: #### BERNIE MALDONADO #### [facility] [address] [place] [address] Dr. Gasper Garber IG # 0.03 10e3/ul Normal 0.00-0.03 [facility] Comment on above: Performed By: #### Bernice HERNDON, UMICRO #### [facility] [address] [place] [address] Dr. Gasper Garber IG % 0.3 % Normal 0.0-0.5 [facility] Comment on above: Performed By: #### Bernice HERNDON, UMICRO #### [facility] [address] [place] [address] Dr. Gasper Garber LYMPH # 1.0 103/ul Critically low 1.2-3.8 The [facility] Comment on above: Performed By: #### Bernice HERNDON, UMICRO #### [facility] [address] [place] [address] Dr. Gasper Garber Lymphocytes/100 WBC (Bld) 10.8 % Critically low 20.5-60.0 [facility] Comment on above: Performed By: #### Bernice HERNDON, UMICRO #### [facility] [address] [place] [address] Dr. Gasper Garber MANUAL DIFF REQ NO Normal [facility] Comment on above: Performed By: #### Bernice HERNDON, UMICRO #### [facility] [address] [place] [address] Dr. Gasper Garber MCH (RBC) [Entitic mass] 31.2 pg Normal 26.7-34.0 [facility] Comment on above: Performed By: #### Bernice HERNDON, UMICRO #### [facility] [address] [place] [address] Dr. Gasper Garber MCHC (RBC) [Mass/Vol] 32.3 g/dL Normal 29.9-35.2 [facility] Comment on above: Performed By: #### Bernice HERNDON, UMICRO #### [facility] [address] [place] [address] Dr. Gasper Garber MCV (RBC) [Entitic vol] 96.5 fL Normal 81.0-99.0 [facility] Comment on above: Performed By: #### TONI MALDONADORO #### [facility] [address] [place] [address] Dr. Gasper Garber MONO # 0.6 103/ul Normal 0.3-0.8 [facility] Comment on above: Performed By: #### TONI MALDONADORO #### [facility] [address] [place] [address] Dr. Gasper Garber Monocytes/100 WBC (Bld) 7.2 % Normal 1.7-12.0 [facility] Comment on above: Performed By: #### TONI MALDONADORO #### [facility] [address] [place] [address] Dr. Gasper Garber NEUT # 7.1 103/ul Critically high 1.4-6.5 [facility] Comment on above: Performed By: #### TONI MALDONADORO #### [facility] [address] [place] [address] Dr. Gasper Garber Neutrophils/100 WBC (Bld) 80.6 % Critically high 43.0-75.0 [facility] Comment on above: Performed By: #### TONI MALDONADORO #### [facility] [address] [place] [address] Dr. Gasper Garber Platelet mean volume (Bld) [Entitic vol] 10.2 fL Normal 9.5-13.5 [facility] Comment on above: Performed By: #### TONI MALDONADORO #### [facility] [address] [place] [address] Dr. Gasper Garber PLT 276 103/ul Normal 150-450 [facility] Comment on above: Performed By: #### TONI MALDONADORO #### [facility] [address] [place] [address] Dr. Gasper Garber RBC 3.69 106/ul Critically low 4.20-5.40 [facility] Comment on above: Performed By: #### TONI MALDONADORO #### [facility] [address] [place] [address] Dr. Gasper Garber WBC 8.8 103/ul Normal 4.0-11.0 [facility] Comment on above: Performed By: #### E BERNIE HERNDON #### [facility] [address] [place], [place] [address] ABD/PELVIS WO CONon [...] BELIA GAFFNEY Date: 2021-08-27 16:04 Normal [facility] ER URINE PROFILEon Bilirubin Ql (U) Negative Normal NEGATIVE [facility] Comment on above: Performed By: #### Bernice HERNDON UMICRO #### [facility] [address] [place] [address] Dr. Gasper Garber Clarity (U) CLEAR Normal CLEAR [facility] Comment on above: Performed By: #### Bernice HERNDON UMICRO #### [facility] [address] [place] [address] Dr. Gasper Garber Color (U) LT. YELLOW Normal YELLOW [facility] Comment on above: Performed By: #### Bernice HERNDON UMICRO #### [facility] [address] [place] [address] Dr. Gasper Garber ERUAHD A micrscopic examina tion will be performed if indicated. Normal [facility] Comment on above: Performed By: #### Bernice HERNDON UMICRO #### [facility] [address] [place] [address] Dr. Gasper Garber Glucose Ql (U) Negative Normal NEGATIVE [facility] Comment on above: Performed By: #### Bernice HERNDON UMICRO #### [facility] [address] [place] [address] Dr. Gasper Garber Hemoglobin Ql (U) Negative Normal NEGATIVE [facility] Comment on above: Performed By: #### Bernice HRENDON UMICRO #### [facility] [address] [place] [address] Dr. Gasper Garber Ketones Ql (U) Negative Normal NEGATIVE [facility] Comment on above: Performed By: #### Bernice HERNDON UMICRO #### [facility] [address] [place] [address] Dr. Gasper Garber LEUKOCYTES Negative Normal NEGATIVE [facility] Comment on above: Performed By: #### Bernice HERNDON UMICRO #### [facility] [address] [place] [address] Dr. Gasper Garber Nitrite Ql (U) Negative Normal NEGATIVE [facility] Comment on above: Performed By: #### Bernice HERNDON UMICRO #### [facility] [address] [place] [address] Dr. Gasper Garber pH (U) 6.5 [pH] Normal 5-9 [facility] Comment on above: Performed By: #### BERNIE MALDONADO #### [facility] [address] [place] [address] Dr. Gasper Garber Protein (U) [Mass/Vol] 100 mg/dL Abnormal NEGATIVE/ TRACE [facility] Comment on above: Performed By: #### TONI MALDONADORO #### [facility] [address] [place] [address] Dr. Gasper Garber SPEC GRAVITY 1.015 Normal 1.005-<=1.0 25 [facility] Comment on above: Performed By: #### TONI MALDONADORO #### [facility] [address] [place] [address] Dr. Gasper Garber UR MICRO IND INDICATED Normal [facility] Comment on above: Performed By: #### BERNIE MALDONADO #### [facility] [address] [place] [address] Dr. Gasper Garber Urobilinogen Qn (U) 0.2 {Kaushik'U}/dL Normal 0.2 - 1. 0 [facility] Comment on above: Performed By: #### BERNIE MALDONADO #### [facility] [address] [place] [address] Dr. Gasper Garber PROF CHEM 8 (BAS METB)on Anion gap [Moles/Vol] 14.7 mmol/L Normal [facility] Comment on above: Performed By: #### P T, PTT #### [facility] [address] [place] [address] Dr. Gasper Garber Calcium [Mass/Vol] 10.1 mg/dL Normal 8.5-10.1 [facility] Comment on above: Performed By: #### P T, PTT #### [facility] [address] [place] [address] Dr. Gasper Garber Chloride [Moles/Vol] 105 mmol/L Normal 98-107 [facility] Comment on above: Performed By: #### P T, PTT #### [facility] [address] [place] [address] [address] Gasper Garber CO2 [Moles/Vol] 24.0 mmol/L Normal 21.0-32.0 [facility] Comment on above: Performed By: #### P T, PTT #### [facility] [address] [place] [address] [address] Gasper Garber Creatinine [Mass/Vol] 1.56 mg/dL Critically high 0.55-1.02 [facility] Comment on above: Performed By: #### P T, PTT #### [facility] [address] [place] [address] [address] Gasper Garber EGFR-AF SOUTH AFRICAN 39 mL/min/1.73m2 Critically low >=60 [facility] Comment on above: Performed By: #### P T, PTT #### [facility] [address] [place] [address] Dr. Gasper Garber EGFR-NON AF SOUTH AFRICAN 32 mL/min/1.73m2 Critically low >=60 [facility] Comment on above: Performed By: #### P T, PTT #### [facility] [address] [address] [address] Gasper Garber Glucose [Mass/Vol] 209 mg/dL Critically high 74-106 [facility] Comment on above: Performed By: #### P T, PTT #### [facility] [address] [address] [address] Gasper Garber Potassium [Moles/Vol] 4.7 mmol/L Normal 3.5-5.1 [facility] Comment on above: Performed By: #### P T, PTT #### [facility] [address] [address] [address] Gasper Garber Sodium [Moles/Vol] 139 mmol/L Normal 136-145 [facility] Comment on above: Performed By: #### P T, PTT #### [facility] [address] [place] [address] [address] Gasper Garber Urea nitrogen [Mass/Vol] 16.0 mg/dL Normal 7.0-18.0 [facility] Comment on above: Performed By: #### P T, PTT #### [facility] [address] [place] [address] Dr. Gasper Garber Urea nitrogen/Creatinine [Mass ratio] 10.3 mg/mg Normal [facility] Comment on above: Performed By: #### P T, PTT #### [facility] [address] [place] [address] Dr. Gasper Garber URINE MICROSCOPIC ONLYon BACTERIA TRACE Abnormal NONE SEEN [facility] Comment on above: Performed By: #### E RUR, UMICRO #### [facility] [address] [place] [address] Dr. Gasper Garber Bacteria identified Cx Nom (U) NOT INDICATED Normal [facility] Comment on above: Performed By: #### E RUR, UMICRO #### [facility] [address] [place] [address] Dr. Gasper Garber CAST NONE SEEN Normal NONE SEEN [facility] Comment on above: Performed By: #### E RUR, UMICRO #### [facility] [address] [place] [address] Dr. Gasper Garber Crystals LM Nom (Urine sed) NONE SEEN Normal NONE SEEN [facility] Comment on above: Performed By: #### E RUR, UMICRO #### [facility] [address] [place] [address] Dr. Gasper Garber Epithelial cells LM Ql (Urine sed) FEW Abnormal NONE SEEN /RARE [facility] Comment on above: Performed By: #### E RUR, UMICRO #### [facility] [address] [place] [address] Dr. Gasper Garber MUCOUS NONE SEEN Normal NONE SEEN [facility] Comment on above: Performed By: #### E RUR, UMICRO #### [facility] [address] [place] [address] Dr. Gasper Garber RBC NONE SEEN Abnormal 0-2 [facility] Comment on above: Performed By: #### E RUR, UMICRO #### [facility] [address] [place] [address] Dr. Gasper Garber WBC 0-2 Abnormal NONE SEEN [facility] Comment on above: Performed By: #### BERNIE MALDONADO #### [facility] [address] [place] [address] Dr. Gasper Garber CULTURE URINEon 08-19-2021 CULTURE URINE Culture Observations : Called to [facility] rn 08-19-21 @0942 Culture Observations: METHICILLIN RESISTANT STAPH AUREUS ISOLATED. [...] C Oxacillin >=4 R C Normal [facility] Comment on above: Performed By: #### A CETON #### [facility] [address] [place] [address] Dr. Gasper Garber CBC AUTO DIFFon 08-16-2021 BASO # 0.0 103/ul Normal 0.0-0.1 [facility] Comment on above: Performed By: #### BERNIE MALDONADO #### [facility] [address] [place] [address] Dr. Gasper Garber Basophils/100 WBC (Bld) 0.4 % Normal 0.2-2.0 [facility] Comment on above: Performed By: #### BERNIE MALDONADO #### [facility] [address] [place] [address] Dr. Gasper Garber EO # 0.1 103/ul Normal 0.0-0.7 [facility] Comment on above: Performed By: #### BERNIE MALDONADO #### [facility] [address] [place] [address] Dr. Gasper Garber Eosinophils/100 WBC (Bld) 1.0 % Normal 0.9-7.0 [facility] Comment on above: Performed By: #### BERNIE MALDONADO #### [facility] [address] [place] [address] Dr. Gasper Garber Erythrocyte distribution width (RBC) [Ratio] 12.5 % Normal 11.0-15.0 [facility] Comment on above: Performed By: #### TONI MALDONADORO #### [facility] [address] [place] [address] Dr. Gasper Garber Hematocrit (Bld) [Volume fraction] 35.3 % Critically low 36.0-48.0 [facility] Comment on above: Performed By: #### TONI MALDONADORO #### [facility] [address] [place] [address] Dr. Gasper Garber Hemoglobin (Bld) [Mass/Vol] 11.7 g/dL Critically low 12.0-16.0 [facility] Comment on above: Performed By: #### TONI MALDONADORO #### [facility] [address] [place] [address] Dr. Gasper Garber IG # 0.03 10e3/ul Normal 0.00-0.03 [facility] Comment on above: Performed By: #### TONI MALDONADORO #### [facility] [address] [place] [address] Dr. Gasper Garber IG % 0.3 % Normal 0.0-0.5 [facility] Comment on above: Performed By: #### TONI MALDONADORO #### [facility] [address] [place] [address] Dr. Gasper Garber LYMPH # 0.9 103/ul Critically low 1.2-3.8 [facility] Comment on above: Performed By: #### TONI MALDONADORO #### [facility] [address] [place] [address] Dr. Gasper Garber Lymphocytes/100 WBC (Bld) 9.6 % Critically low 20.5-60.0 [facility] Comment on above: Performed By: #### E RUR, UMICRO #### [facility] [address] [place] [address] Dr. Gasper Garber MANUAL DIFF REQ NO Normal [facility] Comment on above: Performed By: #### E RUR, UMICRO #### [facility] [address] [place] [address] Dr. Gasper Garber MCH (RBC) [Entitic mass] 30.8 pg Normal 26.7-34.0 [facility] Comment on above: Performed By: #### E RUR, UMICRO #### [facility] [address] [place] [address] Dr. Gasper Garber MCHC (RBC) [Mass/Vol] 33.1 g/dL Normal 29.9-35.2 [facility] Comment on above: Performed By: #### E RUCrystal, UMICRO #### [facility] [address] [place] [address] Dr. Gasper Garber MCV (RBC) [Entitic vol] 92.9 fL Normal 81.0-99.0 [facility] Comment on above: Performed By: #### Bernice HERNDON UMICRO #### [facility] [address] [place] [address] Dr. Gasper Garber MONO # 0.9 103/ul Critically high 0.3-0.8 [facility] Comment on above: Performed By: #### E RUCrystal, UMICRO #### [facility] [address] [place] [address] Dr. Gasper Garber Monocytes/100 WBC (Bld) 9.3 % Normal 1.7-12.0 [facility] Comment on above: Performed By: #### E RUCrystal, UMICRO #### [facility] [address] [place] [address] Dr. Gasper Garber NEUT # 7.7 103/ul Critically high 1.4-6.5 [facility] Comment on above: Performed By: #### E RUCrystal, UMICRO #### [facility] [address] [place] [address] Dr. Gasper Garber Neutrophils/100 WBC (Bld) 79.4 % Critically high 43.0-75.0 [facility] Comment on above: Performed By: #### BERNIE MALDONADO #### [facility] [address] [place] [address] Dr. Gasper Garber Platelet mean volume (Bld) [Entitic vol] 10.1 fL Normal 9.5-13.5 [facility] Comment on above: Performed By: #### BERNIE MALDONADO #### [facility] [address] [place] [address] Dr. Gasper Garber PLT 302 103/ul Normal 150-450 [facility] Comment on above: Performed By: #### BERNIE MALDONADO #### [facility] [address] [place] [address] Dr. Gasper Garber RBC 3.80 106/ul Critically low 4.20-5.40 [facility] Comment on above: Performed By: #### BERNIE MALDONADO #### [facility] [address] [place] [address] Dr. Gasper Garber WBC 9.7 103/ul Normal 4.0-11.0 [facility] Comment on above: Performed By: #### BERNIE MALDONADO #### [facility] [address] [place] [address] Dr. Gasper Garber ER URINE PROFILEon 2 Bilirubin Ql (U) Negative Normal NEGATIVE [facility] Comment on above: Performed By: #### U ARMICR #### [facility] [address] [place] [address] Dr. Gasper Garber Clarity (U) CLEAR Normal CLEAR [facility] Comment on above: Performed By: #### U ARMICR #### [facility] [address] [place] [address] Dr. Gasper Garber Color (U) LT. YELLOW Normal YELLOW [facility] Comment on above: Performed By: #### U ARMICR #### [facility] [address] [place] [address] Dr. Yilan Garber ERUAHD A micrscopic examina tion will be performed if indicated. Normal [facility] Comment on above: Performed By: #### U ARMICR #### [facility] [address] [address] [address] Gasper Garber Glucose Ql (U) Negative Normal NEGATIVE [facility] Comment on above: Performed By: #### U ARMICR #### [facility] [address] [place] [address] [address] Gasper Garber Hemoglobin Ql (U) Negative Normal NEGATIVE [facility] Comment on above: Performed By: #### U ARMICR #### [facility] [address] [address] [address] Gasper Garber Ketones Ql (U) Negative Normal NEGATIVE [facility] Comment on above: Performed By: #### U ARMICR #### [facility] [address] [place] [address] Dr. Gasper Garber LEUKOCYTES MODERATE Abnormal NEGATIVE [facility] Comment on above: Performed By: #### U ARMICR #### [facility] [address] [place] [address] Dr. Gasper Garber Nitrite Ql (U) Negative Normal NEGATIVE [facility] Comment on above: Performed By: #### U ARMICR #### [facility] [address] [place] [address] Dr. Gasper Garber pH (U) 7.0 [pH] Normal 5-9 [facility] Comment on above: Performed By: #### U ARMICR #### [facility] [address] [place] [address] Dr. Gasper Garber SPEC GRAVITY 1.010 Normal 1.005-<=1.0 25 [facility] Comment on above: Performed By: #### U ARMICR #### [facility] [address] [place] [address] Dr. Gasper Garber UA PROTEIN Negative Normal NEGATIVE/ TRACE [facility] Comment on above: Performed By: #### U ARMICR #### [facility] [address] [place] [address] Dr. Gasper Garber UR MICRO IND INDICATED Normal [facility] Comment on above: Performed By: #### U ARMICR #### [facility] [address] [place] [address] Dr. Gasper Garber Urobilinogen Qn (U) 0.2 {Kaushik'U}/dL Normal 0.2 - 1. 0 [facility] Comment on above: Performed By: #### U ARMICR #### [facility] [address] [place] [address] Dr. Gasper Garber PROF 14(COMP METB)on 022 Albumin [Mass/Vol] 3.9 g/dL Normal 3.4-5.0 [facility] Comment on above: Performed By: #### P T, PTT #### [facility] [address] [place] [address] Dr. Gasper Garber Albumin/Globulin [Mass ratio] 1.2 {ratio} Normal [facility] Comment on above: Performed By: #### P T, PTT #### [facility] [address] [place] [address] Dr. Gasper Garber ALP [Catalytic activity/Vol] 70 U/L Normal 46-116 [facility] Comment on above: Performed By: #### P T, PTT #### [facility] [address] [place] [address] Dr. Gasper Garber ALT [Catalytic activity/Vol] 44 U/L Normal 14-59 [facility] Comment on above: Performed By: #### P T, PTT #### [facility] [address] [place] [address] Dr. Gasper Garber Anion gap [Moles/Vol] 17.7 mmol/L Normal [facility] Comment on above: Performed By: #### P T, PTT #### [facility] [address] [place] [address] Dr. Gasper Garber AST [Catalytic activity/Vol] 31 U/L Normal 15-37 [facility] Comment on above: Performed By: #### P T, PTT #### [facility] [address] [place] [address] Dr. Gasper Garber Bilirubin [Mass/Vol] 0.6 mg/dL Normal 0.2-1.0 [facility] Comment on above: Performed By: #### P T, PTT #### [facility] [address] [place] [address] Dr. Gasper Garber Calcium [Mass/Vol] 9.9 mg/dL Normal 8.5-10.1 [facility] Comment on above: Performed By: #### P T, PTT #### [facility] [address] [address] [address] Gasper Garber Chloride [Moles/Vol] 99 mmol/L Normal 98-107 [facility] Comment on above: Performed By: #### P T, PTT #### [facility] [address] [place] [address] Dr. Gasper Garber CO2 [Moles/Vol] 24.4 mmol/L Normal 21.0-32.0 [facility] Comment on above: Performed By: #### P T, PTT #### [facility] [address] [place] [address] Dr. Gasper Garber Creatinine [Mass/Vol] 3.08 mg/dL Critically high 0.55-1.02 [facility] Comment on above: Performed By: #### P T, PTT #### [facility] [address] [place] [address] Dr. Gasper Garber EGFR-AF SOUTH AFRICAN 18 mL/min/1.73m2 Critically low >=60 [facility] Comment on above: Performed By: #### P T, PTT #### [facility] [address] [place] [address] Dr. Gasper Garber EGFR-NON AF SOUTH AFRICAN 15 mL/min/1.73m2 Critically low >=60 [facility] Comment on above: Performed By: #### P T, PTT #### [facility] [address] [place] [address] Dr. Gasper Garber Globulin (S) [Mass/Vol] 3.2 g/dL Normal [facility] Comment on above: Performed By: #### P T, PTT #### [facility] [address] [place] [address] Dr. Gasper Garber Glucose [Mass/Vol] 158 mg/dL Critically high 74-106 [facility] Comment on above: Performed By: #### P T, PTT #### [facility] [address] [address] [address] Gasper Garber Potassium [Moles/Vol] 4.1 mmol/L Normal 3.5-5.1 [facility] Comment on above: Performed By: #### P T, PTT #### [facility] [address] [address] [address] Gasper Garber Protein [Mass/Vol] 7.1 g/dL Normal 6.4-8.2 [facility] Comment on above: Performed By: #### P T, PTT #### [facility] [address] [address] [address] Gasper Garber Sodium [Moles/Vol] 137 mmol/L Normal 136-145 [facility] Comment on above: Performed By: #### P T, PTT #### [facility] [address] [address] [address] Gasper Garber Urea nitrogen [Mass/Vol] 48.0 mg/dL Critically high 7.0-18.0 [facility] Comment on above: Performed By: #### P T, PTT #### [facility] [address] [address] [address] Gasper Garber Urea nitrogen/Creatinine [Mass ratio] 15.6 mg/mg Normal [facility] Comment on above: Performed By: #### P T, PTT #### [facility] [address] [address] [address] Gasper Garber TROPONIN, HIGH SENSITIVITYon 08-16-2021 HSTROP 15.7 pg/mL Normal 4.0-51.3 [facility] Comment on above: Result Comment: CUT- OFF POINTS HAVE BEEN ESTABLISHED BASED ON THE FOURTH UNIVERSAL DEFINITIONS OF MYOCARDIAL INFARCTION. THE UPPER REFERENCE LIMIT (URL) OF TROPONIN, DEFINED THE 99TH PERCENTILE OF cTnI DISTRIBUTION IN A REFERENCE POPULATION, HAS BEEN CONFIRMED THE DECISION THRESHOLD FOR [place] DIAGNOSIS. Performed By: #### P T, PTT #### [facility] [address] [place] [address] Dr. Gasper Garber URINE MICROSCOPIC ONLYon BACTERIA TRACE Abnormal NONE SEEN [facility] Comment on above: Performed By: #### U ARMICR #### [facility] [address] [place] [address] Dr. Gasper Garber Bacteria identified Cx Nom (U) INDICATED Normal [facility] Comment on above: Performed By: #### U ARMICR #### [facility] [address] [place] [address] Dr. Gasper Garber CAST NONE SEEN Normal NONE SEEN [facility] Comment on above: Performed By: #### U ARMICR #### [facility] [address] [place] [address] Dr. Gasper Garber Crystals LM Nom (Urine sed) NONE SEEN Normal NONE SEEN [facility] Comment on above: Performed By: #### U ARMICR #### [facility] [address] [place] [address] Dr. Gasper Garber Epithelial cells LM Ql (Urine sed) FEW Abnormal NONE SEEN /RARE [facility] Comment on above: Performed By: #### U ARMICR #### [facility] [address] [place] [address] Dr. Gasper Garber MUCOUS NONE SEEN Normal NONE SEEN [facility] Comment on above: Performed By: #### U ARMICR #### [facility] [address] [place] [address] Dr. Gasper Garber RBC 0-2 Normal 0-2 [facility] Comment on above: Performed By: #### U ARMICR #### [facility] [address] [place] [address] Dr. Gasper Garber WBC 10-20 Abnormal NONE SEEN [facility] Comment on above: Performed By: #### U ARMICR #### [facility] [address] [place] [address] Dr. Gasper Garber PROF CHEM 8 (BAS METB)on Anion gap [Moles/Vol] 13.5 mmol/L Normal [facility] Comment on above: Performed By: #### P T, PTT #### [facility] [address] [address] [address] Gasper Garber Calcium [Mass/Vol] 9.6 mg/dL Normal 8.5-10.1 [facility] Comment on above: Performed By: #### P T, PTT #### [facility] [address] [address] [address] Gasper Garber Chloride [Moles/Vol] 102 mmol/L Normal 98-107 [facility] Comment on above: Performed By: #### P T, PTT #### [facility] [address] [address] [address] Gasper Garber CO2 [Moles/Vol] 29.0 mmol/L Normal 21.0-32.0 [facility] Comment on above: Performed By: #### P T, PTT #### [facility] [address] [address] [address] Gasper Garber Creatinine [Mass/Vol] 2.05 mg/dL Critically high 0.55-1.02 [facility] Comment on above: Performed By: #### P T, PTT #### [facility] [address] [address] [address] Gasper Garber EGFR-AF S[place]TH AFR[place] 29 mL/min/1.73m2 Critically low >=60 [facility] Comment on above: Performed By: #### P T, PTT #### [facility] [address] [address] [address] Gasper Garber EGFR-NON AF S[place]TH AFR[place] 24 mL/min/1.73m2 Critically low >=60 [facility] Comment on above: Performed By: #### P T, PTT #### [facility] [address] [address] [address] Gasper Garber Glucose [Mass/Vol] 203 mg/dL Critically high 74-106 [facility] Comment on above: Performed By: #### P T, PTT #### [facility] [address] [address] [address] Gasper Garber Potassium [Moles/Vol] 4.5 mmol/L Normal 3.5-5.1 [facility] Comment on above: Performed By: #### P T, PTT #### [facility] [address] [place] [address] Dr. Gasper Garber Sodium [Moles/Vol] 140 mmol/L Normal 136-145 [facility] Comment on above: Performed By: #### P T, PTT #### [facility] [address] [place] [address] Dr. Gasper Garber Urea nitrogen [Mass/Vol] 34.0 mg/dL Critically high 7.0-18.0 [facility] Comment on above: Performed By: #### P T, PTT #### [facility] [address] [place] [address] Dr. Gasper Garber Urea nitrogen/Creatinine [Mass ratio] 16.6 mg/mg Normal [facility] Comment on above: Performed By: #### P T, PTT #### [facility] [address] [place] [address] Dr. Gasper Garber BNPon 07-27-2021 Natriuretic peptide B (Bld) [Mass/Vol] 1454.0 pg/mL Critically high <=900.0 [facility] Comment on above: Performed By: #### BERNIE MALDONADO #### [facility] [address] [place] [address] Dr. Gasper Garber CBC AUTO DIFFon 07-27-2021 BASO # 0.1 103/ul Normal 0.0-0.1 [facility] Comment on above: Performed By: #### BERNIE MALDONADO #### [facility] [address] [place] [address] Dr. Gasper Garber Basophils/100 WBC (Bld) 0.7 % Normal 0.2-2.0 [facility] Comment on above: Performed By: #### BERNIE MALDONADO #### [facility] [address] [place] [address] Dr. Gasper Garber EO # 0.3 103/ul Normal 0.0-0.7 [facility] Comment on above: Performed By: #### BERNIE MALDONADO #### [facility] [address] [place] [address] Dr. Gasper Garber Eosinophils/100 WBC (Bld) 4.3 % Normal 0.9-7.0 [facility] Comment on above: Performed By: #### TONI MALDONADORO #### [facility] [address] [place] [address] Dr. Gasper Garber Erythrocyte distribution width (RBC) [Ratio] 13.0 % Normal 11.0-15.0 [facility] Comment on above: Performed By: #### TONI MALDONADORO #### [facility] [address] [place] [address] Dr. Gasper Garber Hematocrit (Bld) [Volume fraction] 34.5 % Critically low 36.0-48.0 [facility] Comment on above: Performed By: #### TONI MALDONADORO #### [facility] [address] [place] [address] Dr. Gasper Garber Hemoglobin (Bld) [Mass/Vol] 11.0 g/dL Critically low 12.0-16.0 [facility] Comment on above: Performed By: #### TONI MALDONADORO #### [facility] [address] [place] [address] Dr. Gasper Garber IG # 0.02 10e3/ul Normal 0.00-0.03 [facility] Comment on above: Performed By: #### TONI MALDONADORO #### [facility] [address] [place] [address] Dr. Gasper Garber IG % 0.3 % Normal 0.0-0.5 [facility] Comment on above: Performed By: #### TONI MALDONADORO #### [facility] [address] [place] [address] Dr. Gasper Garber LYMPH # 1.1 103/ul Critically low 1.2-3.8 [facility] Comment on above: Performed By: #### TONI MALDONADORO #### [facility] [address] [place] [address] Dr. Gasper Garber Lymphocytes/100 WBC (Bld) 14.3 % Critically low 20.5-60.0 [facility] Comment on above: Performed By: #### TONI MALDONADORO #### [facility] [address] [place] [address] Dr. Gasper Garber MANUAL DIFF REQ NO Normal [facility] Comment on above: Performed By: #### TONI MALDONADORO #### [facility] [address] [place] [address] Dr. Gasper Garber MCH (RBC) [Entitic mass] 30.9 pg Normal 26.7-34.0 [facility] Comment on above: Performed By: #### TONI MALDONADORO #### [facility] [address] [place] [address] Dr. Gasper Garber MCHC (RBC) [Mass/Vol] 31.9 g/dL Normal 29.9-35.2 [facility] Comment on above: Performed By: #### TONI MALDONADORO #### [facility] [address] [place] [address] Dr. Gasper Garber MCV (RBC) [Entitic vol] 96.9 fL Normal 81.0-99.0 [facility] Comment on above: Performed By: #### TONI MALDONADORO #### [facility] [address] [place] [address] Dr. Gasper Garber MONO # 0.7 103/ul Normal 0.3-0.8 [facility] Comment on above: Performed By: #### TONI MALDONADORO #### [facility] [address] [place] [address] Dr. Gasper Garber Monocytes/100 WBC (Bld) 9.3 % Normal 1.7-12.0 [facility] Comment on above: Performed By: #### TONI MALDONADORO #### [facility] [address] [place] [address] Dr. Gasper Garber NEUT # 5.4 103/ul Normal 1.4-6.5 [facility] Comment on above: Performed By: #### E RUR, UMICRO #### [facility] [address] [address] [address] Gasper Garber Neutrophils/100 WBC (Bld) 71.1 % Normal 43.0-75.0 [facility] Comment on above: Performed By: #### E MINR, UMICRO #### [facility] [address] [place] [address] Dr. Gasper Garber Platelet mean volume (Bld) [Entitic vol] 10.2 fL Normal 9.5-13.5 [facility] Comment on above: Performed By: #### E MINR, UMICRO #### [facility] [address] [place] [address] Dr. Gasper Garber PLT 284 103/ul Normal 150-450 [facility] Comment on above: Performed By: #### Bernice HERNDON, UMICRO #### [facility] [address] [place] [address] Dr. Gasper Garber RBC 3.56 106/ul Critically low 4.20-5.40 [facility] Comment on above: Performed By: #### E YANICK, UMICRO #### [facility] [address] [place] [address] Dr. Gasper Garber WBC 7.6 103/ul Normal 4.0-11.0 [facility] Comment on above: Performed By: #### Bernice HERNDON, UMICRO #### [facility] [address] [place] [address] Dr. Gasper Garber PROF CHEM 8 (BAS METB)on Anion gap [Moles/Vol] 15.3 mmol/L Normal [facility] Comment on above: Performed By: #### E YANICK, UMICRO #### [facility] [address] [place] [address] Dr. Gasper Garber Calcium [Mass/Vol] 9.1 mg/dL Normal 8.5-10.1 [facility] Comment on above: Performed By: #### E RUR, UMICRO #### [facility] [address] [place] [address] Dr. Gasper Garber Chloride [Moles/Vol] 100 mmol/L Normal 98-107 [facility] Comment on above: Performed By: #### TONI MALDONADORO #### [facility] [address] [place] [address] Dr. Gasper Garber CO2 [Moles/Vol] 26.8 mmol/L Normal 21.0-32.0 [facility] Comment on above: Performed By: #### TONI MALDONADORO #### [facility] [address] [address] [address] Gasper Garber Creatinine [Mass/Vol] 2.83 mg/dL Critically high 0.55-1.02 [facility] Comment on above: Performed By: #### TONI MALDONADORO #### [facility] [address] [place] [address] Dr. Gasper Garber EGFR-AF S[place]FR[place] 20 mL/min/1.73m2 Critically low >=60 [facility] Comment on above: Performed By: #### TONI MALDONADORO #### [facility] [address] [place] [address] Dr. Gasper Garber EGFR-NON AF S[place]FR[place] 16 mL/min/1.73m2 Critically low >=60 [facility] Comment on above: Performed By: #### TONI MALDONADORO #### [facility] [address] [place] [address] Dr. Gasper Garber Glucose [Mass/Vol] 141 mg/dL Critically high 74-106 [facility] Comment on above: Performed By: #### TONI MALDONADORO #### [facility] [address] [place] [address] Dr. Gasper Garber Potassium [Moles/Vol] 4.1 mmol/L Normal 3.5-5.1 [facility] Comment on above: Performed By: #### TONI MALDONADORO #### [facility] [address] [place] [address] Dr. Gasper Garber Sodium [Moles/Vol] 138 mmol/L Normal 136-145 [facility] Comment on above: Performed By: #### BERNIE MALDONADO #### [facility] [address] [place] [address] Dr. Gasper Garber Urea nitrogen [Mass/Vol] 48.0 mg/dL Critically high 7.0-18.0 [facility] Comment on above: Performed By: #### BERNIE MALDONADO #### [facility] [address] [place] [address] Dr. Gasper Garber Urea nitrogen/Creatinine [Mass ratio] 17.0 mg/mg Normal [facility] Comment on above: Performed By: #### BERNIE MALDONADO #### [facility] [address] [place] [address] Dr. Gasper Garber CULTURE URINEon 07-18-2021 CULTURE [...] Trimethoprim/Sulfamethoxazo le <=20 S F Normal [facility] Comment on above: Performed By: #### A CETON #### [facility] [address] [place] [address] Dr. Gasper Garber BNPon 07-17-2021 Natriuretic peptide B (Bld) [Mass/Vol] 2592.0 pg/mL Critically high <=900.0 [facility] Comment on above: Performed By: #### U RCX #### [facility] [address] [place] [address] Dr. Gasper Garber CBC AUTO DIFFon 07-17-2021 BASO # 0.0 103/ul Normal 0.0-0.1 [facility] Comment on above: Performed By: #### L ACT #### [facility] [address] [address] [address] Gasper Garber Basophils/100 WBC (Bld) 0.4 % Normal 0.2-2.0 [facility] Comment on above: Performed By: #### L ACT #### [facility] [address] [place] [address] Dr. Gasper Garber EO # 0.3 103/ul Normal 0.0-0.7 [facility] Comment on above: Performed By: #### L ACT #### [facility] [address] [place] [address] Dr. Gasper Garber Eosinophils/100 WBC (Bld) 4.3 % Normal 0.9-7.0 [facility] Comment on above: Performed By: #### L ACT #### [facility] [address] [place] [address] Dr. Gasper Garber Erythrocyte distribution width (RBC) [Ratio] 12.5 % Normal 11.0-15.0 [facility] Comment on above: Performed By: #### L ACT #### [facility] [address] [place] [address] Dr. Gasper Garber Hematocrit (Bld) [Volume fraction] 30.3 % Critically low 36.0-48.0 [facility] Comment on above: Performed By: #### L ACT #### [facility] [address] [place] [address] Dr. Gasper Garber Hemoglobin (Bld) [Mass/Vol] 9.8 g/dL Critically low 12.0-16.0 [facility] Comment on above: Performed By: #### L ACT #### [facility] [address] [place] [address] Dr. Gasper Garber IG # 0.02 10e3/ul Normal 0.00-0.03 [facility] Comment on above: Performed By: #### L ACT #### [facility] [address] [place] [address] Dr. Gasper Garber IG % 0.3 % Normal 0.0-0.5 [facility] Comment on above: Performed By: #### L ACT #### [facility] [address] [address] [address] Gasper Garber LYMPH # 1.5 103/ul Normal 1.2-3.8 [facility] Comment on above: Performed By: #### L ACT #### [facility] [address] [place] [address] Dr. Gasper Garber Lymphocytes/100 WBC (Bld) 19.8 % Critically low 20.5-60.0 [facility] Comment on above: Performed By: #### L ACT #### [facility] [address] [place] [address] Dr. Gasper Garber MANUAL DIFF REQ NO Normal [facility] Comment on above: Performed By: #### L ACT #### [facility] [address] [place] [address] Dr. Gasper Garber MCH (RBC) [Entitic mass] 31.3 pg Normal 26.7-34.0 [facility] Comment on above: Performed By: #### L ACT #### [facility] [address] [place] [address] Dr. Gasper Garber MCHC (RBC) [Mass/Vol] 32.3 g/dL Normal 29.9-35.2 [facility] Comment on above: Performed By: #### L ACT #### [facility] [address] [place] [address] Dr. Gasper Garber MCV (RBC) [Entitic vol] 96.8 fL Normal 81.0-99.0 [facility] Comment on above: Performed By: #### L ACT #### [facility] [address] [place] [address] Dr. Gasper Garber MONO # 0.9 103/ul Critically high 0.3-0.8 [facility] Comment on above: Performed By: #### L ACT #### [facility] [address] [place] [address] Dr. Gasper Garber Monocytes/100 WBC (Bld) 11.7 % Normal 1.7-12.0 [facility] Comment on above: Performed By: #### L ACT #### [facility] [address] [place] [address] Dr. Gasper Garber NEUT # 4.8 103/ul Normal 1.4-6.5 [facility] Comment on above: Performed By: #### L ACT #### [facility] [address] [place] [address] Dr. Gasper Garber Neutrophils/100 WBC (Bld) 63.5 % Normal 43.0-75.0 [facility] Comment on above: Performed By: #### L ACT #### [facility] [address] [address] [address] Gasper Garber Platelet mean volume (Bld) [Entitic vol] 10.9 fL Normal 9.5-13.5 [facility] Comment on above: Performed By: #### L ACT #### [facility] [address] [place] [address] Dr. Gasper Garber PLT 193 103/ul Normal 150-450 [facility] Comment on above: Performed By: #### L ACT #### [facility] [address] [place] [address] Dr. Gasper Garber RBC 3.13 106/ul Critically low 4.20-5.40 [facility] Comment on above: Performed By: #### L ACT #### [facility] [address] [place] [address] Dr. Gasper Garber WBC 7.5 103/ul Normal 4.0-11.0 [facility] Comment on above: Performed By: #### L ACT #### [facility] [address] [place] [address] Dr. Gasper Garber POINT OF CARE GLUCOSEon 05-2 Glucose [Mass/Vol] 244 mg/dL Critically high 74-106 [facility] Comment on above: Performed By: #### L ACT #### [facility] [address] [place] [address] Dr. Gasper Garber Glucose [Mass/Vol] 151 mg/dL Critically high 74-106 [facility] Comment on above: Performed By: #### BERNIE MALDONADO #### [facility] [address] [place] [address] Dr. Gasper Garber PROF 14(COMP METB)on 022 Albumin [Mass/Vol] 2.9 g/dL Critically low 3.4-5.0 [facility] Comment on above: Performed By: #### U RCX #### [facility] [address] [place] [address] Dr. Gasper Garber Albumin/Globulin [Mass ratio] 1.0 {ratio} Normal [facility] Comment on above: Performed By: #### U RCX #### [facility] [address] [place] [address] Dr. Gasper Garber ALP [Catalytic activity/Vol] 63 U/L Normal 46-116 [facility] Comment on above: Performed By: #### U RCX #### [facility] [address] [place] [address] Dr. Gasper Garber ALT [Catalytic activity/Vol] 33 U/L Normal 14-59 [facility] Comment on above: Performed By: #### U RCX #### [facility] [address] [place] [address] Dr. Gasper Garber Anion gap [Moles/Vol] 13.1 mmol/L Normal [facility] Comment on above: Performed By: #### U RCX #### [facility] [address] [place] [address] Dr. Gasper Garber AST [Catalytic activity/Vol] 30 U/L Normal 15-37 [facility] Comment on above: Performed By: #### U RCX #### [facility] [address] [place] [address] Dr. Gasper Garber Bilirubin [Mass/Vol] 0.3 mg/dL Normal 0.2-1.0 [facility] Comment on above: Performed By: #### U RCX #### [facility] [address] [place] [address] Dr. Gasper Garber Calcium [Mass/Vol] 8.7 mg/dL Normal 8.5-10.1 [facility] Comment on above: Performed By: #### U RCX #### [facility] [address] [place] [address] Dr. Gasper Garber Chloride [Moles/Vol] 109 mmol/L Critically high 98-107 [facility] Comment on above: Performed By: #### U RCX #### [facility] [address] [address] [address] Gasper Garber CO2 [Moles/Vol] 24.5 mmol/L Normal 21.0-32.0 [facility] Comment on above: Performed By: #### U RCX #### [facility] [address] [address] [address] Gasper Garber Creatinine [Mass/Vol] 1.33 mg/dL Critically high 0.55-1.02 [facility] Comment on above: Performed By: #### U RCX #### [facility] [address] [place] [address] Dr. Gasper Garber EGFR-AF SOU[place]FR[place] 47 mL/min/1.73m2 Critically low >=60 [facility] Comment on above: Performed By: #### U RCX #### [facility] [address] [place] [address] Dr. Gasper Garber EGFR-NON AF S[place]TH AFR[place] 39 mL/min/1.73m2 Critically low >=60 [facility] Comment on above: Performed By: #### U RCX #### [facility] [address] [place] [address] Dr. Gasper Garber Globulin (S) [Mass/Vol] 3.0 g/dL Normal [facility] Comment on above: Performed By: #### U RCX #### [facility] [address] [address] [address] Gasper Garber Glucose [Mass/Vol] 142 mg/dL Critically high 74-106 [facility] Comment on above: Performed By: #### U RCX #### [facility] [address] [place] [address] Dr. Gasper Garber Potassium [Moles/Vol] 3.6 mmol/L Normal 3.5-5.1 [facility] Comment on above: Performed By: #### U RCX #### [facility] [address] [place] [address] Dr. Gasper Garber Protein [Mass/Vol] 5.9 g/dL Critically low 6.4-8.2 Th e [facility] Comment on above: Performed By: #### U RCX #### [facility] [address] [place] [address] Dr. Gasper Garber Sodium [Moles/Vol] 143 mmol/L Normal 136-145 [facility] Comment on above: Performed By: #### U RCX #### [facility] [address] [place] [address] Dr. Gasper Garber Urea nitrogen [Mass/Vol] 25.0 mg/dL Critically high 7.0-18.0 [facility] Comment on above: Performed By: #### U RCX #### [facility] [address] [place] [address] Dr. Gasper Garber Urea nitrogen/Creatinine [Mass ratio] 18.8 mg/mg Normal [facility] Comment on above: Performed By: #### U RCX #### [facility] [address] [place] [address] Dr. Gasper Garber BNPon 07-16-2021 Natriuretic peptide B (Bld) [Mass/Vol] 761.0 pg/mL Normal <=900.0 [facility] Comment on above: Performed By: #### P T, PTT #### [facility] [address] [place] [address] Dr. Gasper Garber CBC AUTO DIFFon 07-16-2021 BASO # 0.1 103/ul Normal 0.0-0.1 [facility] Comment on above: Performed By: #### L ACT #### [facility] [address] [place] [address] Dr. Gasper Garber Basophils/100 WBC (Bld) 0.6 % Normal 0.2-2.0 [facility] Comment on above: Performed By: #### L ACT #### [facility] [address] [place] [address] Dr. Gasper Garber EO # 0.2 103/ul Normal 0.0-0.7 [facility] Comment on above: Performed By: #### L ACT #### [facility] [address] [place] [address] Dr. Gasper Garber Performed By: #### P T, PTT #### [facility] [address] [place] [address] Dr. Gasper Garber Eosinophils/100 WBC (Bld) 2.3 % Normal 0.9-7.0 [facility] Comment on above: Performed By: #### L ACT #### [facility] [address] [place] [address] Dr. Gasper Garber Erythrocyte distribution width (RBC) [Ratio] 12.3 % Normal 11.0-15.0 [facility] Comment on above: Performed By: #### L ACT #### [facility] [address] [place] [address] Dr. Gasper Garber Hematocrit (Bld) [Volume fraction] 32.3 % Critically low 36.0-48.0 [facility] Comment on above: Performed By: #### L ACT #### [facility] [address] [place] [address] Dr. Gasper Garber Hemoglobin (Bld) [Mass/Vol] 10.3 g/dL Critically low 12.0-16.0 [facility] Comment on above: Performed By: #### L ACT #### [facility] [address] [place] [address] Dr. Gasper Garber IG # 0.01 10e3/ul Normal 0.00-0.03 [facility] Comment on above: Performed By: #### L ACT #### [facility] [address] [place] [address] Dr. Gasper Garber IG % 0.1 % Normal 0.0-0.5 [facility] Comment on above: Performed By: #### L ACT #### [facility] [address] [place] [address] Dr. Gasper Garber LYMPH # 1.1 103/ul Critically low 1.2-3.8 [facility] Comment on above: Performed By: #### L ACT #### [facility] [address] [place] [address] Dr. Gasper Garber Lymphocytes/100 WBC (Bld) 12.2 % Critically low 20.5-60.0 [facility] Comment on above: Performed By: #### L ACT #### [facility] [address] [place] [address] Dr. Gasper Garber MANUAL DIFF REQ NO Normal [facility] Comment on above: Performed By: #### L ACT #### [facility] [address] [place] [address] Dr. Gasper Garber Performed By: #### P T, PTT #### [facility] [address] [place] [address] Dr. Gasper Garber MCH (RBC) [Entitic mass] 30.8 pg Normal 26.7-34.0 [facility] Comment on above: Performed By: #### L ACT #### [facility] [address] [place] [address] Dr. Gasper Garber MCHC (RBC) [Mass/Vol] 31.9 g/dL Normal 29.9-35.2 [facility] Comment on above: Performed By: #### L ACT #### [facility] [address] [place] [address] Dr. Gasper Garber MCV (RBC) [Entitic vol] 96.7 fL Normal 81.0-99.0 [facility] Comment on above: Performed By: #### L ACT #### [facility] [address] [place] [address] Dr. Gasper Garber MONO # 0.8 103/ul Normal 0.3-0.8 [facility] Comment on above: Performed By: #### L ACT #### [facility] [address] [place] [address] Dr. Gasper Garber Monocytes/100 WBC (Bld) 8.8 % Normal 1.7-12.0 [facility] Comment on above: Performed By: #### L ACT #### [facility] [address] [place] [address] Dr. Gasper Garber NEUT # 6.5 103/ul Normal 1.4-6.5 [facility] Comment on above: Performed By: #### L ACT #### [facility] [address] [address] [address] Gasper Garber Neutrophils/100 WBC (Bld) 76.0 % Critically high 43.0-75.0 [facility] Comment on above: Performed By: #### L ACT #### [facility] [address] [address] [address] Gasper Garber Platelet mean volume (Bld) [Entitic vol] 10.6 fL Normal 9.5-13.5 [facility] Comment on above: Performed By: #### L ACT #### [facility] [address] [address] [address] Gasper Garber PLT 214 103/ul Normal 150-450 [facility] Comment on above: Performed By: #### L ACT #### [facility] [address] [place] [address] Dr. Gasper Garber RBC 3.34 106/ul Critically low 4.20-5.40 [facility] Comment on above: Performed By: #### L ACT #### [facility] [address] [place] [address] Dr. Gasper Garber WBC 8.6 103/ul Normal 4.0-11.0 [facility] Comment on above: Performed By: #### L ACT #### [facility] [address] [place] [address] Dr. Gasper Garber BASO # 0.0 103/ul Normal 0.0-0.1 [facility] Comment on above: Performed By: #### P T, PTT #### [facility] [address] [place] [address] Dr. Gasper Garber Basophils/100 WBC (Bld) 0.4 % Normal 0.2-2.0 [facility] Comment on above: Performed By: #### P T, PTT #### [facility] [address] [place] [address] Dr. Gasper Garber Eosinophils/100 WBC (Bld) 2.5 % Normal 0.9-7.0 [facility] Comment on above: Performed By: #### P T, PTT #### [facility] [address] [place] [address] Dr. Gasper Garber Erythrocyte distribution width (RBC) [Ratio] 12.4 % Normal 11.0-15.0 [facility] Comment on above: Performed By: #### P T, PTT #### [facility] [address] [place] [address] Dr. Gasper Garber Hematocrit (Bld) [Volume fraction] 29.3 % Critically low 36.0-48.0 [facility] Comment on above: Performed By: #### P T, PTT #### [facility] [address] [place] [address] Dr. Gasper Garber Hemoglobin (Bld) [Mass/Vol] 9.5 g/dL Critically low 12.0-16.0 [facility] Comment on above: Performed By: #### P T, PTT #### [facility] [address] [place] [address] Dr. Gasper Garber IG # 0.02 10e3/ul Normal 0.00-0.03 [facility] Comment on above: Performed By: #### P T, PTT #### [facility] [address] [place] [address] Dr. Gasper Garber IG % 0.2 % Normal 0.0-0.5 [facility] Comment on above: Performed By: #### P T, PTT #### [facility] [address] [place] [address] Dr. Gasper Garber LYMPH # 1.3 103/ul Normal 1.2-3.8 [facility] Comment on above: Performed By: #### P T, PTT #### [facility] [address] [place] [address] Dr. Gasper Garber Lymphocytes/100 WBC (Bld) 16.4 % Critically low 20.5-60.0 [facility] Comment on above: Performed By: #### P T, PTT #### [facility] [address] [place] [address] Dr. Gasper Garber MCH (RBC) [Entitic mass] 31.3 pg Normal 26.7-34.0 [facility] Comment on above: Performed By: #### P T, PTT #### [facility] [address] [place] [address] Dr. Gasper Garber MCHC (RBC) [Mass/Vol] 32.4 g/dL Normal 29.9-35.2 [facility] Comment on above: Performed By: #### P T, PTT #### [facility] [address] [place] [address] Dr. Gasper Garber MCV (RBC) [Entitic vol] 96.4 fL Normal 81.0-99.0 [facility] Comment on above: Performed By: #### P T, PTT #### [facility] [address] [place] [address] Dr. Gasper Garber MONO # 0.9 103/ul Critically high 0.3-0.8 [facility] Comment on above: Performed By: #### P T, PTT #### [facility] [address] [place] [address] Dr. Gapser Garber Monocytes/100 WBC (Bld) 10.5 % Normal 1.7-12.0 [facility] Comment on above: Performed By: #### P T, PTT #### [facility] [address] [place] [address] Dr. Gasper Garber NEUT # 5.7 103/ul Normal 1.4-6.5 [facility] Comment on above: Performed By: #### P T, PTT #### [facility] [address] [place] [address] Dr. Gasper Garber Neutrophils/100 WBC (Bld) 70.0 % Normal 43.0-75.0 [facility] Comment on above: Performed By: #### P T, PTT #### [facility] [address] [place] [address] Dr. Gasper Garber Platelet mean volume (Bld) [Entitic vol] 10.9 fL Normal 9.5-13.5 [facility] Comment on above: Performed By: #### P T, PTT #### [facility] [address] [place] [address] Dr. Gasper Garber PLT 203 103/ul Normal 150-450 [facility] Comment on above: Performed By: #### P T, PTT #### [facility] [address] [place] [address] Dr. Gasper Garber RBC 3.04 106/ul Critically low 4.20-5.40 [facility] Comment on above: Performed By: #### P T, PTT #### [facility] [address] [place] [address] Dr. Gasper Garber WBC 8.2 103/ul Normal 4.0-11.0 [facility] Comment on above: Performed By: #### P T, PTT #### [facility] [address] [place] [address] Dr. Gasper Garber CULTURE BLOODon 07-16-2021 Microscopic examination of blood, culture Culture Observations: NO GROWTH AT 5 DAYS. Normal [facility] Comment on above: Performed By: #### B [id number] #### [facility] [address] [place] [address] Dr. Gasper Garber Microscopic examination of blood, culture Culture Observations: NO GROWTH AT 5 DAYS. Normal [facility] Comment on above: Performed By: #### A CETON #### [facility] [address] [place] [address] Dr. Gasper Garber POINT OF CARE GLUCOSEon 06-20 Glucose [Mass/Vol] 155 mg/dL Critically high 74-106 [facility] Comment on above: Performed By: #### P T, PTT #### [facility] [address] [place] [address] Dr. Gasper Garber Glucose [Mass/Vol] 165 mg/dL Critically high 74-106 [facility] Comment on above: Performed By: #### P OCGLUC #### [facility] [address] [place] [address] Dr. Gasper Garber Glucose [Mass/Vol] 232 mg/dL Critically high 74-106 [facility] Comment on above: Performed By: #### E RUTONI RojasRO #### [facility] [address] [place] [address] Dr. Gasper Garber PROF 14(COMP METB)on 022 Albumin [Mass/Vol] 2.9 g/dL Critically low 3.4-5.0 [facility] Comment on above: Performed By: #### P T, PTT #### [facility] [address] [place] [address] Dr. Gasper Garber Albumin/Globulin [Mass ratio] 1.0 {ratio} Normal [facility] Comment on above: Performed By: #### P T, PTT #### [facility] [address] [place] [address] Dr. Gasper Garber ALP [Catalytic activity/Vol] 62 U/L Normal 46-116 [facility] Comment on above: Performed By: #### P T, PTT #### [facility] [address] [place] [address] Dr. Gasper Garber ALT [Catalytic activity/Vol] 34 U/L Normal 14-59 [facility] Comment on above: Performed By: #### P T, PTT #### [facility] [address] [place] [address] Dr. Gasper Garber Anion gap [Moles/Vol] 10.8 mmol/L Normal [facility] Comment on above: Performed By: #### P T, PTT #### [facility] [address] [place] [address] Dr. Gasper Garber AST [Catalytic activity/Vol] 14 U/L Critically low 15-37 [facility] Comment on above: Performed By: #### P T, PTT #### [facility] [address] [place] [address] Dr. Gasper Garber Bilirubin [Mass/Vol] 0.4 mg/dL Normal 0.2-1.0 [facility] Comment on above: Performed By: #### P T, PTT #### [facility] [address] [place] [address] Dr. Gasper Garber Calcium [Mass/Vol] 8.4 mg/dL Critically low 8.5-10.1 [facility] Comment on above: Performed By: #### P T, PTT #### [facility] [address] [place] [address] Dr. Gasper Garber Chloride [Moles/Vol] 105 mmol/L Normal 98-107 [facility] Comment on above: Performed By: #### P T, PTT #### [facility] [address] [address] [address] Gasper Garber CO2 [Moles/Vol] 26.3 mmol/L Normal 21.0-32.0 [facility] Comment on above: Performed By: #### P T, PTT #### [facility] [address] [address] [address] Gasper Garber Creatinine [Mass/Vol] 2.20 mg/dL Critically high 0.55-1.02 [facility] Comment on above: Performed By: #### P T, PTT #### [facility] [address] [place] [address] Dr. Gasper Garbre EGFR-AF S[place] 26 mL/min/1.73m2 Critically low >=60 [facility] Comment on above: Performed By: #### P T, PTT #### [facility] [address] [place] [address] Dr. Gasper Garber EGFR-NON AF [place] 22 mL/min/1.73m2 Critically low >=60 [facility] Comment on above: Performed By: #### P T, PTT #### [facility] [address] [place] [address] Dr. Gasper Garber Globulin (S) [Mass/Vol] 2.9 g/dL Normal [facility] Comment on above: Performed By: #### P T, PTT #### [facility] [address] [place] [address] Dr. Gasper Garber Glucose [Mass/Vol] 167 mg/dL Critically high 74-106 [facility] Comment on above: Performed By: #### P T, PTT #### [facility] [address] [place] [address] Dr. Gasper Garber Potassium [Moles/Vol] 3.1 mmol/L Critically low 3.5-5.1 [facility] Comment on above: Performed By: #### P T, PTT #### [facility] [address] [place] [address] Dr. Gasper Garber Protein [Mass/Vol] 5.8 g/dL Critically low 6.4-8.2 [facility] Comment on above: Performed By: #### P T, PTT #### [facility] [address] [place] [address] Dr. Gasper Garber Sodium [Moles/Vol] 139 mmol/L Normal 136-145 [facility] Comment on above: Performed By: #### P T, PTT #### [facility] [address] [place] [address] Dr. Gasper Garber Urea nitrogen [Mass/Vol] 41.0 mg/dL Critically high 7.0-18.0 [facility] Comment on above: Performed By: #### P T, PTT #### [facility] [address] [place] [address] Dr. Gasper Garber Urea nitrogen/Creatinine [Mass ratio] 18.6 mg/mg Normal [facility] Comment on above: Performed By: #### P T, PTT #### [facility] [address] [place] [address] Dr. Gasper Garber CBC AUTO DIFFon 07-15-2021 BASO # 0.0 103/ul Normal 0.0-0.1 [facility] Comment on above: Performed By: #### P T, PTT #### [facility] [address] [place] [address] Dr. Gaspre Garber Basophils/100 WBC (Bld) 0.4 % Normal 0.2-2.0 [facility] Comment on above: Performed By: #### P T, PTT #### [facility] [address] [place] [address] Dr. Gasper Garber EO # 0.2 103/ul Normal 0.0-0.7 [facility] Comment on above: Performed By: #### P T, PTT #### [facility] [address] [place] [address] Dr. Gasper Garber Eosinophils/100 WBC (Bld) 1.6 % Normal 0.9-7.0 [facility] Comment on above: Performed By: #### P T, PTT #### [facility] [address] [place] [address] Dr. Gasper Garber Erythrocyte distribution width (RBC) [Ratio] 12.4 % Normal 11.0-15.0 [facility] Comment on above: Performed By: #### P T, PTT #### [facility] [address] [place] [address] Dr. Gasper Garber Hematocrit (Bld) [Volume fraction] 34.7 % Critically low 36.0-48.0 [facility] Comment on above: Performed By: #### P T, PTT #### [facility] [address] [place] [address] Dr. Gasper Garber Hemoglobin (Bld) [Mass/Vol] 11.4 g/dL Critically low 12.0-16.0 [facility] Comment on above: Performed By: #### P T, PTT #### [facility] [address] [place] [address] Dr. Gasper Garber IG # 0.02 10e3/ul Normal 0.00-0.03 [facility] Comment on above: Performed By: #### P T, PTT #### [facility] [address] [place] [address] Dr. Gasper Garber IG % 0.2 % Normal 0.0-0.5 [facility] Comment on above: Performed By: #### P T, PTT #### [facility] [address] [place] [address] Dr. Gasper Garber LYMPH # 1.6 103/ul Normal 1.2-3.8 [facility] Comment on above: Performed By: #### P T, PTT #### [facility] [address] [place] [address] Dr. Gasper Garber Lymphocytes/100 WBC (Bld) 17.7 % Critically low 20.5-60.0 [facility] Comment on above: Performed By: #### P T, PTT #### [facility] [address] [place] [address] Dr. Gasper Garber MANUAL DIFF REQ NO Normal [facility] Comment on above: Performed By: #### P T, PTT #### [facility] [address] [place] [address] Dr. Gasper Garber MCH (RBC) [Entitic mass] 31.1 pg Normal 26.7-34.0 [facility] Comment on above: Performed By: #### P T, PTT #### [facility] [address] [place] [address] Dr. Gasper Garber MCHC (RBC) [Mass/Vol] 32.9 g/dL Normal 29.9-35.2 [facility] Comment on above: Performed By: #### P T, PTT #### [facility] [address] [place] [address] Dr. Gasper Garber MCV (RBC) [Entitic vol] 94.8 fL Normal 81.0-99.0 [facility] Comment on above: Performed By: #### P T, PTT #### [facility] [address] [place] [address] Dr. Gasper Garber MONO # 1.0 103/ul Critically high 0.3-0.8 [facility] Comment on above: Performed By: #### P T, PTT #### [facility] [address] [place] [address] Dr. Gasper Garber Monocytes/100 WBC (Bld) 10.3 % Normal 1.7-12.0 [facility] Comment on above: Performed By: #### P T, PTT #### [facility] [address] [place] [address] Dr. Gasper Garber NEUT # 6.4 103/ul Normal 1.4-6.5 [facility] Comment on above: Performed By: #### P T, PTT #### [facility] [address] [place] [address] Dr. Gasper Garber Neutrophils/100 WBC (Bld) 69.8 % Normal 43.0-75.0 [facility] Comment on above: Performed By: #### P T, PTT #### [facility] [address] [place] [address] Dr. Gasper Garber Platelet mean volume (Bld) [Entitic vol] 10.4 fL Normal 9.5-13.5 [facility] Comment on above: Performed By: #### P T, PTT #### [facility] [address] [address] [address] Gasper Garber PLT 269 103/ul Normal 150-450 [facility] Comment on above: Performed By: #### P T, PTT #### [facility] [address] [address] [address] Gasper Garber RBC 3.66 106/ul Critically low 4.20-5.40 [facility] Comment on above: Performed By: #### P T, PTT #### [facility] [address] [address] [address] Gasper Garber WBC 9.2 103/ul Normal 4.0-11.0 [facility] Comment on above: Performed By: #### P T, PTT #### [facility] [address] [place] [address] ABD/PELVIS WO CONon [...] NASRIN CHIU Date: 2021-07-15 18:16 Normal [facility] Covid-19 PCR (CVDTBH)on 06-20 SARS-CoV-2 (COVID-19) RNA ANA LUISA+probe Ql (Unsp spec) Not detected Normal NOT DETECTED [facility] Comment on above: Result Comment: When [...] for this test is supported by the [place] of Health and Human Service's declaration that [...] used). Performed By: #### L ACT #### [facility] [address] [place] [address] Dr. Gasper Garber ER URINE PROFILEon Bilirubin Ql (U) Negative Normal NEGATIVE [facility] Comment on above: Performed By: #### BERNIE MALDONADO #### [facility] [address] [place] [address] Dr. Gasper Garber Clarity (U) CLEAR Normal CLEAR [facility] Comment on above: Performed By: #### E BERNIE HERNDON #### [facility] [address] [place] [address] Dr. Gasper Garber Color (U) LT. YELLOW Normal YELLOW [facility] Comment on above: Performed By: #### E TONI HERNDONRO #### [facility] [address] [place] [address] Dr. Gasper Garber ERUAHD A micrscopic examina tion will be performed if indicated. Normal [facility] Comment on above: Performed By: #### E JOANNE HERNDONICRO #### [facility] [address] [place] [address] Dr. Gasper Garber Glucose Ql (U) Negative Normal NEGATIVE [facility] Comment on above: Performed By: #### TONI MALDONADORO #### [facility] [address] [place] [address] Dr. Gasper Garber Hemoglobin Ql (U) Negative Normal NEGATIVE [facility] Comment on above: Performed By: #### TONI MALDONADORO #### [facility] [address] [place] [address] Dr. Gasper Garber Ketones Ql (U) Negative Normal NEGATIVE [facility] Comment on above: Performed By: #### TONI MALDONADORO #### [facility] [address] [place] [address] Dr. Gasper Garber LEUKOCYTES Negative Normal NEGATIVE [facility] Comment on above: Performed By: #### TONI MALDONADORO #### [facility] [address] [place] [address] Dr. Gasper Garber Nitrite Ql (U) Negative Normal NEGATIVE [facility] Comment on above: Performed By: #### TONI MALDONADORO #### [facility] [address] [place] [address] Dr. Gasper Garber pH (U) 5.5 [pH] Normal 5-9 [facility] Comment on above: Performed By: #### TONI MALDONADORO #### [facility] [address] [place] [address] Dr. Gasper Garber SPEC GRAVITY 1.020 Normal 1.005-<=1.0 25 [facility] Comment on above: Performed By: #### TONI MALDONADORO #### [facility] [address] [place] [address] Dr. Gasper Garber UA PROTEIN TRACE Normal NEGATIVE/ TRACE [facility] Comment on above: Performed By: #### TONI MALDONADORO #### [facility] [address] [place] [address] Dr. Gasper Garber UR MICRO IND INDICATED Normal [facility] Comment on above: Performed By: #### E RUR, UMICRO #### [facility] [address] [place] [address] Dr. Gasper Garber Urobilinogen Qn (U) 0.2 {Kaushik'U}/dL Normal 0.2 - 1. 0 [facility] Comment on above: Performed By: #### E YANICK UMICRO #### [facility] [address] [place] [address] Dr. Gasper Garber FREE T3on 07-15-2021 FREE T3 2.45 pg/mlL Normal 2.18-3.98 [facility] Comment on above: Performed By: #### P T, PTT #### [facility] [address] [place] [address] Dr. Gasper Garber FREE T4on 07-15-2021 Free T4 [Mass/Vol] 1.19 ng/dL Normal 0.76-1.46 [facility] Comment on above: Performed By: #### A CETON #### [facility] [address] [place] [address] Dr. Gasper Garber LACTATE/LACTIC ACIDon 2021 Lactate [Moles/Vol] 2.0 mmol/L Critically high 0.4-1.9 [facility] Comment on above: Performed By: #### L ACT #### [facility] [address] [place] [address] Dr. Gasper Garber Lactate [Moles/Vol] 4.0 mmol/L Critically high 0.4-1.9 [facility] Comment on above: Performed By: #### L ACT #### [facility] [address] [place] [address] Dr. Gasper Garber LIPASEon 07-15-2021 Lipase [Catalytic activity/Vol] 93.0 U/L Normal 73.0-393.0 [facility] Comment on above: Performed By: #### A CETON #### [facility] [address] [place] [address] Dr. Gasper Garber POINT OF CARE GLUCOSEon 06-20 Glucose [Mass/Vol] 200 mg/dL Critically high 74-106 [facility] Comment on above: Performed By: #### P T, PTT #### [facility] [address] [place] [address] Dr. Gasper Garber PROF 14(COMP METB)on 022 Albumin [Mass/Vol] 3.5 g/dL Normal 3.4-5.0 [facility] Comment on above: Performed By: #### A CETON #### [facility] [address] [place] [address] Dr. Gasper Garber Albumin/Globulin [Mass ratio] 1.0 {ratio} Normal [facility] Comment on above: Performed By: #### A CETON #### [facility] [address] [place] [address] Dr. Gasper Garber ALP [Catalytic activity/Vol] 81 U/L Normal 46-116 [facility] Comment on above: Performed By: #### A CETON #### [facility] [address] [place] [address] Dr. Gasper Garber ALT [Catalytic activity/Vol] 43 U/L Normal 14-59 [facility] Comment on above: Performed By: #### A CETON #### [facility] [address] [place] [address] Dr. Gasper Garber Anion gap [Moles/Vol] 13.6 mmol/L Normal [facility] Comment on above: Performed By: #### A CETON #### [facility] [address] [place] [address] Dr. Gasper Garber AST [Catalytic activity/Vol] 19 U/L Normal 15-37 [facility] Comment on above: Performed By: #### A CETON #### [facility] [address] [place] [address] Dr. Gasper Garber Bilirubin [Mass/Vol] 0.6 mg/dL Normal 0.2-1.0 [facility] Comment on above: Performed By: #### A CETON #### [facility] [address] [place] [address] Dr. Gasper Garber Calcium [Mass/Vol] 8.9 mg/dL Normal 8.5-10.1 [facility] Comment on above: Performed By: #### A CETON #### [facility] [address] [place] [address] Dr. Gasper Garber Chloride [Moles/Vol] 103 mmol/L Normal 98-107 [facility] Comment on above: Performed By: #### A CETON #### [facility] [address] [place] [address] Dr. Gasper Garber CO2 [Moles/Vol] 25.9 mmol/L Normal 21.0-32.0 [facility] Comment on above: Performed By: #### A CETON #### [facility] [address] [place] [address] Dr. Gasper Garber Creatinine [Mass/Vol] 2.91 mg/dL Critically high 0.55-1.02 [facility] Comment on above: Performed By: #### A CETON #### [facility] [address] [place] [address] Dr. Gasper Garber EGFR-AF SOUTH AFRICAN 19 mL/min/1.73m2 Critically low >=60 [facility] Comment on above: Performed By: #### A CETON #### [facility] [address] [place] [address] Dr. Gasper Garber EGFR-NON AF SOUTH AFR[place] 16 mL/min/1.73m2 Critically low >=60 [facility] Comment on above: Performed By: #### A CETON #### [facility] [address] [place] [address] Dr. Gasper Garber Globulin (S) [Mass/Vol] 3.5 g/dL Normal [facility] Comment on above: Performed By: #### A CETON #### [facility] [address] [place] [address] Dr. Gasper Garber Glucose [Mass/Vol] 201 mg/dL Critically high 74-106 [facility] Comment on above: Performed By: #### A CETON #### [facility] [address] [place] [address] Dr. Gasper Garber Potassium [Moles/Vol] 3.5 mmol/L Normal 3.5-5.1 [facility] Comment on above: Performed By: #### A CETON #### [facility] [address] [place] [address] Dr. Gasper Garber Protein [Mass/Vol] 7.0 g/dL Normal 6.4-8.2 [facility] Comment on above: Performed By: #### A CETON #### [facility] [address] [place] [address] Dr. Gasper Garber Sodium [Moles/Vol] 139 mmol/L Normal 136-145 [facility] Comment on above: Performed By: #### A CETON #### [facility] [address] [place] [address] Dr. Gasper Garber Urea nitrogen [Mass/Vol] 46.0 mg/dL Critically high 7.0-18.0 [facility] Comment on above: Performed By: #### A CETON #### [facility] [address] [place] [address] Dr. Gasper Garber Urea nitrogen/Creatinine [Mass ratio] 15.8 mg/mg Normal [facility] Comment on above: Performed By: #### A CETON #### [facility] [address] [place] [address] Dr. Gasper Garber PROTIMEon 07-15-2021 INR Coag (PPP) [Relative time] 1.03 {INR} Normal [facility] Comment on above: Performed By: #### P T, PTT #### [facility] [address] [place] [address] Dr. Gasper Garber INR GUIDELINES SEE BELOW Normal [facility] Comment on above: Result Comment: JESUS RED INR: 2.0 - 3.0 CONDITIONS NOT LISTED BELOW 2.5 - 3.5 FOR PROSTHETIC HEART VALVE REPLACEMENT 2.5 - 3.5 RECURRENT THROMBOSIS Performed By: #### P T, PTT #### [facility] [address] [place] [address] Dr. Gapser Garber PT Coag (PPP) [Time] 11.1 s Normal 9.0-11.6 [facility] Comment on above: Performed By: #### P T, PTT #### [facility] [address] [place] [address] Dr. Gasper Garber PTTon 07-15-2021 aPTT Coag (Bld) [Time] 24.2 s Normal 22.3-36.2 [facility] Comment on above: Performed By: #### P T, PTT #### [facility] [address] [place] [address] Dr. Gasper Garber TROPONIN, HIGH SENSITIVITYon 07-15-2021 HSTROP 23.9 pg/mL Normal 4.0-51.3 [facility] Comment on above: Result Comment: CUT- OFF POINTS HAVE BEEN ESTABLISHED BASED ON THE FOURTH UNIVERSAL DEFINITIONS OF MYOCARDIAL INFARCTION. THE UPPER REFERENCE LIMIT (URL) OF TROPONIN, DEFINED THE 99TH PERCENTILE OF cTnI DISTRIBUTION IN A REFERENCE POPULATION, HAS BEEN CONFIRMED THE DECISION THRESHOLD FOR [place] DIAGNOSIS. Performed By: #### L ACT #### [facility] [address] [place] [address] Dr. Gasper Garber TSHon 07-15-2021 TSH 3.864 uIU/mL Critically high 0.358-3.740 [facility] Comment on above: Performed By: #### A CETON #### [facility] [address] [place] [address] Dr. Gasper Garber TSH RANGE SEE BELOW Normal [facility] Comment on above: Result Comment: <0.3 4 UIU/ml HYPERTHYROID 0.34-5.60 UIU/ml EUTHYROID >5.60 UIU/ml HYPOTHYROID Performed By: #### A CETON #### [facility] [address] [place] [address] Dr. Gasper Garber URINE MICROSCOPIC ONLYon BACTERIA MODERATE Abnormal NONE SEEN [facility] Comment on above: Performed By: #### BERNIE MALDONADO #### [facility] [address] [place] [address] Dr. Gasper Garber Bacteria identified Cx Nom (U) INDICATED Normal [facility] Comment on above: Performed By: #### BERNIE MALDONADO #### [facility] [address] [address] [address] Gasper Garber CAST SEEN Abnormal NONE SEEN [facility] Comment on above: Performed By: #### E RUR, UMICRO #### [facility] [address] [place] [address] Dr. Gasper Garber Crystals LM Nom (Urine sed) NONE SEEN Normal NONE SEEN [facility] Comment on above: Performed By: #### E RUR, UMICRO #### [facility] [address] [place] [address] Dr. Gasper Garber Epithelial cells LM Ql (Urine sed) RARE Normal NONE SEEN /RARE [facility] Comment on above: Performed By: #### E RUR, UMICRO #### [facility] [address] [place] [address] Dr. Gasper Garber MUCOUS NONE SEEN Normal NONE SEEN [facility] Comment on above: Performed By: #### E RUR, UMICRO #### [facility] [address] [place] [address] Dr. Gasper Garber RBC NONE SEEN Abnormal 0-2 [facility] Comment on above: Performed By: #### E RUR, UMICRO #### [facility] [address] [place] [address] Dr. Gasper Garber WBC 2-5 Abnormal NONE SEEN [facility] Comment on above: Performed By: #### E RUR, UMICRO #### [facility] [address] [place] [address] Dr. Gasper Garber XR chest 1V portableon 07-01 XR chest 1V portable [facility] [place] [address] XRay Report Signed Patient: Elif Turner MR#: [id number] : 1945 Acct:[id number] Age/Sex: 75 / F ADM Date: 06/24/21 Loc: Room: [address] [place] [address] Type: DIS IN Attending Dr: Rusty Amor MD Ordering Provider: Marlon Leon DO, RES Date of Service: 06/24/21 XR/XR chest 1V portable: NSTEMI Copies to: MD Marlon Winston, DO, RES Chest 06/24/2021. CLINICAL DATA: Chest [...] Valle Jr., M.D.07/01/2021 9:08 AM Dictation Location: [place] [address] Transcribed By: [facility] 07/01/21907 Dictated By: Adarsh Valle Jr, MD 07/01/21906 Signed By: 07/01/21 09 Normal [facility] Activated partial thrombopla stin time (aPTT) in platelet poor plasma by coagulation aOrdered By: Marlon Leon on 06-25-2021 aPTT Coag (PPP) [Time] 24.8 s 25.1-36.5 [facility] Basophils Auto (Bld) [#/Vol] Ordered By: Marlon Leon on 06-25-2021 Basophils (Bld) [#/Vol] 0.0 10*3/uL 0.0-0.2 [facility] Basophils/100 WBC Auto (Bld) Ordered By: Marlon Leon on 06-25-2021 Basophils/100 WBC (Bld) 0.3 % [facility] Blood hemoglobin measurement (mass/volume)Ordered By: Marlon Leon on 06-25-2021 Hemoglobin (Bld) [Mass/Vol] 11.1 g/dL 11.8-15.4 [facility] Blood leukocytes automated c ount (number/volume)Ordered By: Marlon Leon on 06-25-2021 WBC (Bld) [#/Vol] 10.5 10*3/uL 4.5-11.0 [facility] Complete Blood Count Auto Di ffon 06-25-2021 Basophils (Bld) [#/Vol] 0.0 10*3/uL Normal 0.0-0.2 [facility] Comment on above: Result Comment: PERF ORMED BY: [facility] [place] [address] PATHOLOGIST ENVIRONMENTAL MONITORING TECHNICIAN NARGIS CLEMENS M.D. Performed By: #### G LULS #### Point of Care testing , Basophils/100 WBC (Bld) 0.3 % Normal . [facility] Comment on above: Performed By: #### G LULS #### Point of Care testing , Eosinophils (Bld) [#/Vol] 0.0 10*3/uL Normal 0.0-0.45 [facility] Comment on above: Performed By: #### G LULS #### Point of Care testing , Eosinophils/100 WBC (Bld) 0.0 % Normal . [facility] Comment on above: Performed By: #### G LULS #### Point of Care testing , Erythrocyte distribution width (RBC) [Ratio] 12.7 % Normal 11.9-15.3 [facility] Comment on above: Performed By: #### G LULS #### Point of Care testing , Hematocrit (Bld) [Volume fraction] 32.7 % Low 34.0-46.4 [facility] Comment on above: Performed By: #### G LULS #### Point of Care testing , Hemoglobin (Bld) [Mass/Vol] 11.1 g/dL Low 11.8-15.4 [facility] Comment on above: Performed By: #### G LULS #### Point of Care testing , Lymphocytes (Bld) [#/Vol] 0.4 10*3/uL Low 1.00-4.8 [facility] Comment on above: Performed By: #### G LULS #### Point of Care testing , Lymphocytes/100 WBC (Bld) 4.3 % Normal . [facility] Comment on above: Performed By: #### G LULS #### Point of Care testing , MCH (RBC) [Entitic mass] 31.3 pg Normal 24.7-34.3 [facility] Comment on above: Performed By: #### Chitra CAMPBELL #### Point of Care testing , MCV (RBC) [Entitic vol] 92.1 fL Normal 80-100 [facility] Comment on above: Performed By: #### Chitra CAMPBELL #### Point of Care testing , Mean Corpuscular HGB Conc 34.0 g/dL Normal 32.0-35.0 [facility] Comment on above: Performed By: #### Chitra CAMPBELL #### Point of Care testing , Monocytes (Bld) [#/Vol] 0.5 10*3/uL Normal 0.0-0.8 [facility] Comment on above: Performed By: #### Chitra CAMPBELL #### Point of Care testing , Monocytes/100 WBC (Bld) 4.5 % Normal . [facility] Comment on above: Performed By: #### Chitra CAMPBELL #### Point of Care testing , Neutrophils (Bld) [#/Vol] 9.6 10*3/uL High 1.8-7.7 [facility] Comment on above: Performed By: #### Chitra CAMPBELL #### Point of Care testing , Neutrophils/100 WBC (Bld) 90.9 % Normal . [facility] Comment on above: Performed By: #### Chitra CAMPBELL #### Point of Care testing , Nucleated RBC/100 WBC (Bld) [Ratio] 0.0 % Normal 0-0.5 [facility] Comment on above: Performed By: #### Chitra CAMPBELL #### Point of Care testing , Platelet mean volume (Bld) [Entitic vol] 9.0 fL Normal 6.3-10.7 [facility] Comment on above: Performed By: #### Chitra CAMPBELL #### Point of Care testing , Platelets (Bld) [#/Vol] 205 10*3/uL Normal 150-450 [facility] Comment on above: Performed By: #### Chitra CAMPBELL #### Point of Care testing , RBC (Bld) [#/Vol] 3.55 10*6/uL Low 3.60-5.00 [facility] Comment on above: Performed By: #### G LULS #### Point of Care testing , WBC (Bld) [#/Vol] 10.5 10*3/uL Normal 4.5-11.0 [facility] Comment on above: Performed By: #### G LULS #### Point of Care testing , ECG 12 lead ECGon 06-25-2021 ECG 12 lead ECG [facility] [place] [address] Electrocardiograph Report Signed Patient: Elif Turner MR#: [id number] : 1945 Acct:[id number] Age/Sex: 75 / F ADM Date: 06/24/21 Loc: Room: [address] [place] [address] Type: DIS IN Attending Dr: Rusty Amor [...] are now present Confirmed by SANG BARRIOS [facility] ([id number]) on 06/25/2021 11:01:31 AM Referred By: Electronically Signed By:WIL DOMÍNGUEZ MD [facility] Transcribed By: MUS Signed By Wil Domínguez MD, FACC 06/25/21 1101 Normal [facility] Eosinophils Auto (Bld) [#/Vo l]Ordered By: Marlon Leon on 06-25-2021 Eosinophils (Bld) [#/Vol] 0.0 10*3/uL 0.0-0.45 [facility] Eosinophils/100 WBC Auto (Bl d)Ordered By: Marlon Leon on 06-25-2021 Eosinophils/100 WBC (Bld) 0.0 % [facility] Erythrocyte distribution wid th Auto (RBC) [Ratio]Ordered By: Marlon Leon on 06-25-2021 Erythrocyte distribution width (RBC) [Ratio] 12.7 % 11.9-15.3 [facility] Glucose Glucometer (BldC) [M ass/Vol]Ordered By: Rusty Amor on 06-25-2021 Glucose [Mass/Vol] 227 mg/dL [facility] Comment on above: Random Glucose Refer ence Range is dependent on time and content of last meal. Glucose of more than 200 mg/dL in a nonstressed, ambulatory subject supports the diagnosis of Diabetes Mellitus. Glucose Poct Glucometerson 0 06-25-2021 Glucose [Mass/Vol] 227 mg/dL Normal [facility] Comment on above: Result Comment: [place] om Glucose Reference Range is dependent on time and content of last meal. Glucose of more than 200 mg/dL in a nonstressed, ambulatory subject supports the diagnosis of Diabetes Mellitus. PERFORMED BY: [place] [phone] PATHOLOGIST ENVIRONMENTAL MONITORING TECHNICIAN NARGIS CLEMENS M.D. Performed By: #### P TT #### [facility] [address] [place] [address] Glucose [Mass/Vol] 184 mg/dL Normal [facility] Comment on above: Result Comment: [place] om Glucose Reference Range is dependent on time and content of last meal. Glucose of more than 200 mg/dL in a nonstressed, ambulatory subject supports the diagnosis of Diabetes Mellitus. PERFORMED BY: [place] [phone] PATHOLOGIST ENVIRONMENTAL MONITORING TECHNICIAN NARGIS CLEMENS M.D. Performed By: #### P TT #### [facility] [address] [place] [address] Glucose [Mass/Vol] 294 mg/dL Normal [facility] Comment on above: Result Comment: [place] om Glucose Reference Range is dependent on time and content of last meal. Glucose of more than 200 mg/dL in a nonstressed, ambulatory subject supports the diagnosis of Diabetes Mellitus. PERFORMED BY: [address] [place] [address] PATHOLOGIST ENVIRONMENTAL MONITORING TECHNICIAN NARGIS CLEMENS M.D. Performed By: #### G SHANNAN #### Point of Care testing , Hematocrit Auto (Bld) [Volum e fraction]Ordered By: Marlon Leon on 06-25-2021 Hematocrit (Bld) [Volume fraction] 32.7 % 34.0-46.4 [facility] Laboratory - CoagulationOrde red By: Marlon Leon on 06-25-2021 PT Coag (PPP) [Time] 11.5 s 9.0-12.9 [facility] Laboratory - Hematology and Cell countsOrdered By: Marlon Leon on 06-25-2021 Nucleated RBC/100 WBC (Bld) [Ratio] 0.0 % 0-0.5 [facility] Lymphocytes Auto (Bld) [#/Vo l]Ordered By: Marlon Leon on 06-25-2021 Lymphocytes (Bld) [#/Vol] 0.4 10*3/uL 1.00-4.8 [facility] Lymphocytes/100 WBC Auto (Bl d)Ordered By: Marlon Leon on 06-25-2021 Lymphocytes/100 WBC (Bld) 4.3 % [facility] MCH Auto (RBC) [Entitic mass ]Ordered By: Marlon Leon on 06-25-2021 MCH (RBC) [Entitic mass] 31.3 pg 24.7-34.3 [facility] MCHC Auto (RBC) [Mass/Vol]Or dered By: Marlon Leon on 06-25-2021 MCHC (RBC) [Mass/Vol] 34.0 g/dL 32.0-35.0 [facility] MCV Auto (RBC) [Entitic vol] Ordered By: Marlon Leon on 06-25-2021 MCV (RBC) [Entitic vol] 92.1 fL 80-100 [facility] Monocytes Auto (Bld) [#/Vol] Ordered By: Marlon Leon on 06-25-2021 Monocytes (Bld) [#/Vol] 0.5 10*3/uL 0.0-0.8 [facility] Monocytes/100 WBC Auto (Bld) Ordered By: Marlon Leon on 06-25-2021 Monocytes/100 WBC (Bld) 4.5 % [facility] Neutrophils Auto (Bld) [#/Vo l]Ordered By: Marlon Leon on 06-25-2021 Neutrophils (Bld) [#/Vol] 9.6 10*3/uL 1.8-7.7 [facility] Neutrophils/100 WBC Auto (Bl d)Ordered By: Marlon Leon on 06-25-2021 Neutrophils/100 WBC (Bld) 90.9 % [facility] Partial Thromboplastin Timeo n 06-25-2021 aPTT Coag (Bld) [Time] 24.8 s Low 25.1-36.5 [facility] Comment on above: Result Comment: PERF ORMED BY: [facility] [address] [place] [address] PATHOLOGIST ENVIRONMENTAL MONITORING TECHNICIAN NARGIS CLEMENS M.D. Performed By: #### G LUCRISTIAN #### Point of Care testing , Platelet mean volume Auto (B ld) [Entitic vol]Ordered By: Marlon Leon on 06-25-2021 Platelet mean volume (Bld) [Entitic vol] 9.0 fL 6.3-10.7 [facility] Platelet poor plasma interna tional normalized ratio (INR) by coagulation assay (relatOrdered By: Marlon Leon on 06-25-2021 INR Coag (PPP) [Relative time] 1.0 {INR} [facility] Comment on above: INR Therapeutic Rang [...] 06-25-2021 Platelets (Bld) [#/Vol] 205 10*3/uL 150-450 [facility] Progress Noteson 06-25-2021 Practice Clinician Authentication Interface Message Text EMERGENCY TRIAGE, TREAT AND TRANSPORT (ET3) DOCUMENTATION OF TELEHEALTH VISIT Date / Time: 06/23/20211929 Name: Eilf Turner : 1945 SSN: (Not on file) EMS Agency: [facility] [x] Verbal consent obtained [] [...] Completed by: Andreas Freitas MD Normal [facility] Prothrombin Time INRon 06-25 INR Coag (PPP) [Relative time] 1.0 {INR} Normal [facility] Comment on above: Result Comment: INR [...] Coag (PPP) [Time] 11.5 s Normal 9.0-12.9 [facility] Comment on above: Performed By: #### G LULS #### Point of Care testing , RBC Auto (Bld) [#/Vol]Ordere d By: Marlon Leon on 06-25-2021 RBC (Bld) [#/Vol] 3.55 10*6/uL 3.60-5.00 [facility] Troponin I High Sensitivityo n 06-25-2021 Troponin I High Sensitivity 735 pg/mL Off scale high 0-15 [facility] Comment on above: Result Comment: Crit ical value result called at 0638 on 06/25/21 PERFORMED BY: [place] [address] PATHOLOGIST ENVIRONMENTAL MONITORING TECHNICIAN NARGIS CLEMENS M.D. Performed By: #### P TT #### [address] Troponin I.cardiac [Mass/vol ume] in Serum or Plasma by High sensitivity methodOrdered By: Gen Bolivar on 06-25-2021 Troponin I.cardiac High sensitivity method [Mass/Vol] 735 pg/mL 0-15 [facility] Comment on above: Critical value result called at 0638 on 06/25/21 A1C with Estimated Average G nelsonn 06-24-2021 Glucose [Mass/Vol] 160 mg/dL Normal [facility] Comment on above: Result Comment: PERF ORMED BY: [place] [address] PATHOLOGIST ENVIRONMENTAL MONITORING TECHNICIAN NARGIS CLEMENS M.D. Performed By: #### G LULS #### Point of Care testing , HbA1c (Bld) [Mass fraction] 7.2 % High 4.3-5.6 [facility] Comment on above: Result Comment: Incr eased risk for diabetes: 5.7 - 6.4 diabetes: >6.4 glycemic control for adults with diabetes: <7.0 Performed By: #### G LULS #### Point of Care testing , Albumin [Mass/volume] in Ser um or PlasmaOrdered By: Marlon Leon on 06-24-2021 Albumin [Mass/Vol] 3.1 g/dL 3.2-5.5 [facility] Cholesterol [Mass/volume] in Serum or PlasmaOrdered By: Marlon Leon on 06-24-2021 Cholesterol [Mass/Vol] 128 mg/dL 140-200 [facility] Comment on above: Chol less than 200 m g/dl low risk Chol 201-239 mg/dl borderline risk Chol 240 mg/dl and greater high risk Cholesterol in LDL Calc [Mas s/Vol]Ordered By: Marlon Leon on 06-24-2021 Cholesterol in LDL [Mass/Vol] 56 mg/dL 0-100 [facility] Comment on above: LDL ATP III CLASSIFI CATION LDL less than 100 mg/dL Optimal LDL 100-129 mg/dL Near or above optimal LDL 130-159 mg/dL Borderline high LDL 160-189 mg/dL High LDL greater than 189 mg/dL Very high Cholesterol in VLDL Calc [Ma ss/Vol]Ordered By: Marlon Leon on 06-24-2021 Cholesterol in VLDL [Mass/Vol] 13 mg/dL [facility] Complete Blood Count Auto Di ffon 06-24-2021 Basophils (Bld) [#/Vol] 0.1 10*3/uL Normal 0.0-0.2 [facility] Comment on above: Result Comment: PERF ORMED BY: [place] [address] PATHOLOGIST ENVIRONMENTAL MONITORING TECHNICIAN NARGIS CLEMENS M.D. Performed By: #### P TT #### [facility] [address] Basophils/100 WBC (Bld) 0.8 % Normal . [facility] Comment on above: Performed By: #### P TT #### [address] Eosinophils (Bld) [#/Vol] 0.2 10*3/uL Normal 0.0-0.45 [facility] Comment on above: Performed By: #### P TT #### [address] Eosinophils/100 WBC (Bld) 3.2 % Normal . [facility] Comment on above: Performed By: #### P TT #### [address] Erythrocyte distribution width (RBC) [Ratio] 12.7 % Normal 11.9-15.3 [facility] Comment on above: Performed By: #### P TT #### [address] Hematocrit (Bld) [Volume fraction] 30.5 % Low 34.0-46.4 [facility] Comment on above: Performed By: #### P TT #### [address] Hemoglobin (Bld) [Mass/Vol] 10.4 g/dL Low 11.8-15.4 [facility] Comment on above: Performed By: #### P TT #### [address] Lymphocytes (Bld) [#/Vol] 1.8 10*3/uL Normal 1.00-4.8 [facility] Comment on above: Performed By: #### P TT #### [address] Lymphocytes/100 WBC (Bld) 27.4 % Normal . [facility] Comment on above: Performed By: #### P TT #### [address] MCH (RBC) [Entitic mass] 31.3 pg Normal 24.7-34.3 [facility] Comment on above: Performed By: #### P TT #### [address] MCV (RBC) [Entitic vol] 92.0 fL Normal 80-100 [facility] Comment on above: Performed By: #### P TT #### [facility] [address] Mean Corpuscular HGB Conc 34.1 g/dL Normal 32.0-35.0 [facility] Comment on above: Performed By: #### P TT #### [facility] [address] Monocytes (Bld) [#/Vol] 0.6 10*3/uL Normal 0.0-0.8 [facility] Comment on above: Performed By: #### P TT #### [address] Monocytes/100 WBC (Bld) 8.9 % Normal . [facility] Comment on above: Performed By: #### P TT #### [address] Neutrophils (Bld) [#/Vol] 3.8 10*3/uL Normal 1.8-7.7 [facility] Comment on above: Performed By: #### P TT #### [address] Neutrophils/100 WBC (Bld) 59.7 % Normal . [facility] Comment on above: Performed By: #### P TT #### [address] Nucleated RBC/100 WBC (Bld) [Ratio] 0.0 % Normal 0-0.5 [facility] Comment on above: Performed By: #### P TT #### [address] Platelet mean volume (Bld) [Entitic vol] 8.4 fL Normal 6.3-10.7 [facility] Comment on above: Performed By: #### P TT #### [address] Platelets (Bld) [#/Vol] 191 10*3/uL Normal 150-450 [facility] Comment on above: Performed By: #### P TT #### [facility] [address] [place] [address] RBC (Bld) [#/Vol] 3.31 10*6/uL Low 3.60-5.00 [facility] Comment on above: Performed By: #### P TT #### [address] WBC (Bld) [#/Vol] 6.4 10*3/uL Normal 4.5-11.0 [facility] Comment on above: Performed By: #### P TT #### [address] Comprehensive Metabolic Pane hailey 06-24-2021 Albumin [Mass/Vol] 3.1 g/dL Low 3.2-5.5 [facility] Comment on above: Performed By: #### H S TROP, PT, PTT, CMP, PHOS, MG, LIPID #### [address] Albumin/Globulin [Mass ratio] 1.2 {ratio} Normal [facility] Comment on above: Performed By: #### H S TROP, PT, PTT, CMP, PHOS, MG, LIPID #### [address] ALP [Catalytic activity/Vol] 57 U/L Normal 32-92 [facility] Comment on above: Performed By: #### H S TROP, PT, PTT, CMP, PHOS, MG, LIPID #### [address] ALT [Catalytic activity/Vol] 25 U/L Normal 10-60 [facility] Comment on above: Performed By: #### H S TROP, PT, PTT, CMP, PHOS, MG, LIPID #### [address] AST [Catalytic activity/Vol] 20 U/L Normal 10-42 [facility] Comment on above: Performed By: #### H S TROP, PT, PTT, CMP, PHOS, MG, LIPID #### [facility] [address] Bilirubin [Mass/Vol] 0.5 mg/dL Normal 0.3-1.2 [facility] Comment on above: Performed By: #### H S TROP, PT, PTT, CMP, PHOS, MG, LIPID #### [address] Calcium [Mass/Vol] 9.1 mg/dL Normal 8.2-10.2 [facility] Comment on above: Performed By: #### H S TROP, PT, PTT, CMP, PHOS, MG, LIPID #### [address] Chloride [Moles/Vol] 108 mmol/L Normal 95-114 [facility] Comment on above: Performed By: #### H S TROP, PT, PTT, CMP, PHOS, MG, LIPID #### [address] CO2 [Moles/Vol] 25.1 mmol/L Normal 22.0-30.0 [facility] Comment on above: Performed By: #### H S TROP, PT, PTT, CMP, PHOS, MG, LIPID #### [address] Creatinine [Mass/Vol] 1.64 mg/dL High 0.44-1.03 [facility] Comment on above: Performed By: #### H S TROP, PT, PTT, CMP, PHOS, MG, LIPID #### [address] Creatinine Clr Calc Pharmacy 33.62 [facility] Comment on above: Performed By: #### H S TROP, PT, PTT, CMP, PHOS, MG, LIPID #### [address] Estimated GFR ( Cathryn 37 Normal [facility] Comment on above: Result Comment: GFR estimated reference range: According to KDOQI guidelines, <60 ml/min/1.73m2 is sufficient to diagnose a patient with chronic kidney disease. Performed By: #### H S TROP, PT, PTT, CMP, PHOS, MG, LIPID #### [facility] [address] Estimated GFR (Non- Am 31 Normal [facility] Comment on above: Performed By: #### H S TROP, PT, PTT, CMP, PHOS, MG, LIPID #### [facility] [address] Globulin (S) [Mass/Vol] 2.6 g/dL Normal [facility] Comment on above: Performed By: #### H S TROP, PT, PTT, CMP, PHOS, MG, LIPID #### [facility] [address] Glucose [Mass/Vol] 65 mg/dL Low 70-100 [facility] Comment on above: Result Comment: [place] Glucose Reference Range is dependent on time and content of last meal. Glucose of more than 200 mg/dL in a nonstressed, ambulatory subject supports the diagnosis of Diabetes Mellitus. ADA recommended reference range Performed By: #### H S TROP, PT, PTT, CMP, PHOS, MG, LIPID #### [address] Potassium [Moles/Vol] 4.1 mmol/L Normal 3.5-5.1 [facility] Comment on above: Performed By: #### H S TROP, PT, PTT, CMP, PHOS, MG, LIPID #### [facility] [address] Protein [Mass/Vol] 5.7 g/dL Low 6.1-7.9 [facility] Comment on above: Performed By: #### H S TROP, PT, PTT, CMP, PHOS, MG, LIPID #### [address] Sodium [Moles/Vol] 140 mmol/L Normal 136-146 [facility] Comment on above: Performed By: #### H S TROP, PT, PTT, CMP, PHOS, MG, LIPID #### [facility] [address] Urea nitrogen [Mass/Vol] 27 mg/dL High 9-23 [facility] Comment on above: Performed By: #### H S TROP, PT, PTT, CMP, PHOS, MG, LIPID #### [facility] [address] [place] [address] [place] Creatinine and Glomerular fi ltration rate.predicted panel (S/P/Bld)Ordered By: Marlon Leon on 06-24-2021 Creatinine [Mass/Vol] 1.64 mg/dL 0.44-1.03 [facility] ECG 12 lead ECGon 06-24-2021 ECG 12 lead ECG [facility] [place] [address] Electrocardiograph Report Signed Patient: Elif Turner MR#: [id number] : 1945 Acct:[id number] Age/Sex: 75 / F ADM Date: 06/24/21 Loc: Room: [address] [place] [address] Type: DIS IN Attending Dr: Rusty Amor [...] change was found Confirmed by [facility], [facility] ([id number]) on 06/25/2021 11:01:12 AM Referred By: Electronically Signed By:WIL DOMÍNGUEZ MD FACC Transcribed By: MUS Signed By Wil Domínguez MD, FACC 06/25/21 1101 Normal [facility] ECG 12 lead ECG [facility] [address] [place] [id number] Electrocardiograph Report Signed Patient: Elif Turner MR#: [id number] : 1945 Acct:[id number] Age/Sex: 75 / F ADM Date: 06/24/21 Loc: 4P Room: [address] [place] [address] Type: DIS IN Attending Dr: Rusty Amor [...] change was found [facility] on 06/24/2021 10:01:50 AM Referred By: Electronically Signed By:WIL DOMÍNGUEZ MD FAC Transcribed By: MUS Signed By Wil Domínguez MD, FACC 06/24/21 1001 [facility] ECH echo transthoracicon ECH echo transthoracic [facility] [place] [address] Echocardiogram Signed Patient: Elif Turner MR#: [id number] : 1945 Acct:[id number] Age/Sex: 75 / F ADM Date: 06/24/21 Loc: Room: [address] [place] [address] Type: DIS IN Attending Dr: Rusty Amor MD Ordering Provider: Marlon Leon DO, RES Date of Service: 06/24/2108/10/602 ECH/ECH echo transthoracic: NSTEMI Copies to: Marlon Leon DO, RES Wil Domínguez MD, [facility] A : 1945 Gender: Female (MM/DD/YYYY) Age: 75 Years Ordering Physician: Marlon Leon Height: 64 in Weight: 203.266 lb Performed By: Aracely Brennan, RCS BSA: 1.97 m2 BP: 169 / 71 [...] 06/24/21 0944 Signed By: Wil Domínguez MD, FAC 06/24/21 1111 Normal [facility] Estimated glomerular filtrat ion rate (GFR) non- AmericanOrdered By: Marlon Leon on 06-24-2021 GFR/1.73 sq M.predicted among non-blacks MDRD (S/P/Bld) [Vol rate/Area] 31 mL/Min [facility] Globulin Calc (S) [Mass/Vol] Ordered By: Marlon Leon on 06-24-2021 Globulin (S) [Mass/Vol] 2.6 g/dL [facility] Glucose Poct Glucometerson 0 06-24-2021 Glucose [Mass/Vol] 322 mg/dL Normal [facility] Comment on above: Result Comment: [place] Glucose Reference Range is dependent on time and content of last meal. Glucose of more than 200 mg/dL in a nonstressed, ambulatory subject supports the diagnosis of Diabetes Mellitus. PERFORMED BY: [place] [address] PATHOLOGIST ENVIRONMENTAL MONITORING TECHNICIAN ANRGIS CLEMENS M.D. Performed By: #### G LULS #### Point of Care testing , Commemt1 Glu2: Cleaned Meter Normal [facility] Comment on above: Result Comment: PERF ORMED BY: [place] [address] PATHOLOGIST ENVIRONMENTAL MONITORING TECHNICIAN NARGIS CLEMENS M.D. Performed By: #### G LULS #### Point of Care testing , Glucose [Mass/Vol] 87 mg/dL Normal [facility] Comment on above: Result Comment: [facility] Glucose Reference Range is dependent on time and content of last meal. Glucose of more than 200 mg/dL in a nonstressed, ambulatory subject supports the diagnosis of Diabetes Mellitus. Performed By: #### G LULS #### Point of Care testing , Glucose [Mass/Vol] 139 mg/dL Normal [facility] Comment on above: Result Comment: [place] Glucose Reference Range is dependent on time and content of last meal. Glucose of more than 200 mg/dL in a nonstressed, ambulatory subject supports the diagnosis of Diabetes Mellitus. PERFORMED BY: [place] [address] PATHOLOGIST ENVIRONMENTAL MONITORING TECHNICIAN NARGIS CLEMENS M.D. Performed By: #### P TT #### [address] Glucose mean value [Mass/vol ume] in Blood Estimated from glycated hemoglobinOrdered By: Marlon Leon on 06-24-2021 Average glucose Estimated from glycated hemoglobin (Bld) [Mass/Vol] 160 mg/dL [facility] Hemoglobin A1c percentageOrd ered By: Marlon Leon on 06-24-2021 HbA1c (Bld) [Mass fraction] 7.2 % 4.3-5.6 [facility] Comment on above: Increased risk for d iabetes: 5.7 - 6.4 diabetes: >6.4 glycemic control for adults with diabetes: <7.0 Laboratory - Chemistry and C hemistry - challengeOrdered By: Marlon Leon on 06-24-2021 Magnesium [Mass/Vol] 2.4 mg/dL 1.6-2.6 [facility] Lipid Panelon 06-24-2021 Cholesterol [Mass/Vol] 128 mg/dL Low 140-200 [facility] Comment on above: Result Comment: Chol less than 200 mg/dl low risk Chol 201-239 mg/dl borderline risk Chol 240 mg/dl and greater high risk Performed By: #### H S TROP, PT, PTT, CMP, PHOS, MG, LIPID #### [facility] [address] Cholesterol in HDL [Mass/Vol] 58 mg/dL Normal 35-85 [facility] Comment on above: Result Comment: HDL CHOL ATP-III CLASSIFICATION Cardiovascular Risk HDL > or equal to 60 mg/dL LOW HDL < 40 mg/dL HIGH Performed By: #### H S TROP, PT, PTT, CMP, PHOS, MG, LIPID #### [facility] [address] Cholesterol.total/Ch olesterol in HDL [Mass ratio] 2.2 {ratio} Normal <5.0 [facility] Comment on above: Result Comment: PERF ORMED BY: [facility] [address] [place] [address] PATHOLOGIST ENVIRONMENTAL MONITORING TECHNICIAN NARGIS CLEMENS M.D. Performed By: #### H S TROP, PT, PTT, CMP, PHOS, MG, LIPID #### [facility] [address] [place] [id number] [facility] LDL Cholesterol,Calculat ed 56 mg/dL Normal 0-100 [facility] Comment on above: Result Comment: LDL ATP III CLASSIFICATION LDL less than 100 mg/dL Optimal LDL 100-129 mg/dL Near or above optimal LDL 130-159 mg/dL Borderline high LDL 160-189 mg/dL High LDL greater than 189 mg/dL Very high Performed By: #### H S TROP, PT, PTT, CMP, PHOS, MG, LIPID #### [facility] [address] Triglyceride w/Reflex 69 mg/dL Normal 35-149 [facility] Comment on above: Result Comment: TRIG ATP III CLASSIFICATION TRIG less than 150 mg/dL Normal TRIG 150-199 mg/dL Borderline high TRIG 200-500 mg/dL High TRIG greater than 500 mg/dL Very high Standard traceable to the Center for Disease Conrtrol and Prevention (CDC) test method. Performed By: #### H S TROP, PT, PTT, CMP, PHOS, MG, LIPID #### [facility] [address] VLDL CHOLESTEROL 13 mg/dL Normal [facility] Comment on above: Performed By: #### H S TROP, PT, PTT, CMP, PHOS, MG, LIPID #### [facility] [address] Magnesiumon 06-24-2021 Magnesium [Mass/Vol] 2.4 mg/dL Normal 1.6-2.6 [facility] Comment on above: Performed By: #### H S TROP, PT, PTT, CMP, PHOS, MG, LIPID #### [facility] [address] No Panel InformationOrdered By: Rusty Amor on 06-24-2021 Bedside Glucose Comment Glu2: cleaned meter [facility] No Panel InformationOrdered By: Marlon Leon on 06-24-2021 Estimated GFR () 37 mL/Min [facility] Comment on above: GFR estimated refere nce range: According to KDOQI guidelines, <60 ml/min/1.73m2 is sufficient to diagnose a patient with chronic kidney disease. Pharmacy Creatinine Clearance (Chem 33.62 [facility] Partial Thromboplastin Timeo n 06-24-2021 aPTT Coag (Bld) [Time] 43.4 s High 25.1-36.5 [facility] Comment on above: Order Comment: draw both at 11:35 with per Shahnaz martin Result Comment: PERF ORMED BY: [place] [address] PATHOLOGIST ENVIRONMENTAL MONITORING TECHNICIAN NARGIS CLEMENS M.D. Performed By: #### P TT #### [facility] [address] [place], [place] [id number] [facility] aPTT Coag (Bld) [Time] 35.4 s Normal 25.1-36.5 [facility] Comment on above: Result Comment: PERF ORMED BY: [place] [address] PATHOLOGIST ENVIRONMENTAL MONITORING TECHNICIAN NARGIS CLEMENS M.D. Performed By: #### H S TROP, PT, PTT, CMP, PHOS, MG, LIPID #### [facility] [address] [place] [address] Phosphate [Mass/volume] in S sybil or PlasmaOrdered By: Marlon Leon on 06-24-2021 Phosphate [Mass/Vol] 3.5 mg/dL 2.5-4.6 [facility] Phosphoruson 06-24-2021 Phosphate [Mass/Vol] 3.5 mg/dL Normal 2.5-4.6 [facility] Comment on above: Performed By: #### H S TROP, PT, PTT, CMP, PHOS, MG, LIPID #### [facility] [address] [place] [address] Protein [Mass/volume] in Ser um or PlasmaOrdered By: Marlon Leon on 06-24-2021 Protein [Mass/Vol] 5.7 g/dL 6.1-7.9 [facility] Prothrombin Time INRon 06-24 INR Coag (PPP) [Relative time] 1.0 {INR} Normal [facility] Comment on above: Result Comment: INR [...] PT, PTT, CMP, PHOS, MG, LIPID #### [facility] [address] PT Coag (PPP) [Time] 11.7 s Normal 9.0-12.9 [facility] Comment on above: Performed By: #### H S TROP, PT, PTT, CMP, PHOS, MG, LIPID #### [facility] [address] Serum or plasma alanine liu otransferase measurement without P-5'-P (enzymatic activiOrdered By: Marlon Leon on 06-24-2021 ALT No additional P-5'-P [Catalytic activity/Vol] 25 U/L 10-60 [facility] Serum or plasma albumin/glob ulin mass ratioOrdered By: Marlon Leon on 06-24-2021 Albumin/Globulin [Mass ratio] 1.2 {ratio} [facility] Serum or plasma alkaline carrie sphatase measurement (enzymatic activity/volume)Ordered By: Marlon Leon on 06-24-2021 ALP [Catalytic activity/Vol] 57 U/L 32-92 [facility] Serum or plasma aspartate am inotransferase measurement (enzymatic activity/volume)Ordered By: Marlon Leon on 06-24-2021 AST [Catalytic activity/Vol] 20 U/L 10-42 [facility] Serum or plasma calcium varsha urement (mass/volume)Ordered By: Marlon Leon on 06-24-2021 Calcium [Mass/Vol] 9.1 mg/dL 8.2-10.2 [facility] Serum or plasma chloride viktoriya surement (moles/volume)Ordered By: Marlon Leon on 06-24-2021 Chloride [Moles/Vol] 108 mmol/L 95-114 [facility] Serum or plasma glucose varsha urement (mass/volume)Ordered By: Marlon Leon on 06-24-2021 Glucose [Mass/Vol] 65 mg/dL 70-100 [facility] Comment on above: ADA recommended refe rence range Random Glucose Reference Range is dependent on time and content of last meal. Glucose of more than 200 mg/dL in a nonstressed, ambulatory subject supports the diagnosis of Diabetes Mellitus. Serum or plasma high density lipoprotein (HDL) cholesterol measurementOrdered By: Marlon Leon on 06-24-2021 Cholesterol in HDL [Mass/Vol] 58 mg/dL 35-85 [facility] Comment on above: HDL CHOL ATP-III CLA SSIFICATION Cardiovascular Risk HDL > or equal to 60 mg/dL LOW HDL < 40 mg/dL HIGH Serum or plasma potassium me asurement (moles/volume)Ordered By: Marlon Leon on 06-24-2021 Potassium [Moles/Vol] 4.1 mmol/L 3.5-5.1 [facility] Serum or plasma sodium measu rement (moles/volume)Ordered By: Marlon Leon on 06-24-2021 Sodium [Moles/Vol] 140 mmol/L 136-146 [facility] Serum or plasma total biliru bin measurement (mass/volume)Ordered By: Marlon Leon on 06-24-2021 Bilirubin [Mass/Vol] 0.5 mg/dL 0.3-1.2 [facility] Serum or plasma total carbon dioxide measurement (moles/volume)Ordered By: Marlon Leon on 06-24-2021 CO2 [Moles/Vol] 25.1 mmol/L 22.0-30.0 [facility] Serum or plasma total choles terol/high density lipoprotein (HDL) cholesterol mass ratOrdered By: Marlon Leon on 06-24-2021 Cholesterol.total/Ch olesterol in HDL [Mass ratio] 2.2 {ratio} [facility] Serum or plasma urea nitroge n measurement (mass/volume)Ordered By: Marlon Leon on 06-24-2021 Urea nitrogen [Mass/Vol] 27 mg/dL 9-23 [facility] Triglyceride [Mass/volume] i n Serum or PlasmaOrdered By: Marlon Leon on 06-24-2021 Triglyceride [Mass/Vol] 69 mg/dL 35-149 [facility] Comment on above: TRIG ATP III CLASSIF ICATION TRIG less than 150 mg/dL Normal TRIG 150-199 mg/dL Borderline high TRIG 200-500 mg/dL High TRIG greater than 500 mg/dL Very high Standard traceable to the Center for Disease Conrtrol and Prevention (CDC) test method. Troponin I High Sensitivityo n 06-24-2021 Troponin I High Sensitivity 879 pg/mL Off scale high 0-15 [facility] Comment on above: Order Comment: draw both at 11:35 with per Shahnaz martin Result Comment: Crit ical value result called at 1246 on 06/24/21 PERFORMED BY: [place] [address] PATHOLOGIST ENVIRONMENTAL MONITORING TECHNICIAN NRAGIS CLEMENS M.D. Performed By: #### G LULS #### Point of Care testing , Troponin I High Sensitivity 1098 pg/mL Off scale high 0-15 [facility] Comment on above: Result Comment: Resu lts called at 0635 on 06/24/21 PERFORMED BY: [place] [phone] PATHOLOGIST ENVIRONMENTAL MONITORING TECHNICIAN NARGIS CLEMENS M.D. Performed By: #### H S TROP, PT, PTT, CMP, PHOS, MG, LIPID #### [address] Auth for Release of Medical Recordson 03-01-2021 Auth for Release of Medical Records [id number]:127 Normal [facility] Reminderson 02-16-2021 Reminders - From: Elsa Erickson LPN To: GSN - Clinical; Sent: 02/16/2021 08:31:52 EST Show up: 01/10/2026 08:00:00 EST Subject: colonoscopy recall Due Date/Time: 02/09/2026 08:00:00 EST Reminder/Recall Patient is due for colonoscopy 02/09/2026 due to history of tubular adenoma. Normal [facility] Ambulatory Clinical Summaryo n 02-15-2021 Ambulatory Clinical Summary {[id number]}CD:61 4368 [facility] General Surgery Office/Clini c Noteon 02-15-2021 General Surgery Office/Clinic Note CD:[id number]:[id number] JgpkfUqe8foev1pVN7bMrMelfJn BAsaBp7gk0ubVL25vk0zTzFbAt4 +KlgiDT4PYUrODPUs sQ5uGLHYUcbAUnMjHB1vMoEIOu3 LEVZlAJpFSXkjEM3aIRK8igxaqG 6xUN8aWDPlrXWhFf6gx0o1 RqbcUf3bEf9WYm90iTEmlZJbECL OQ5bqpY8bJA1bhPOjN8TmOMIqTo 0CGCe1lSuetS7esaY8Xjn1 gVA7Ee29l3erojPlh6SaIqD6SIc vhDv6tJjiQDwjgK3wNkFiBPEFqU 8hiWwxLT0unD0xyjTyqSqy biI+SqbdOPRyTnq2fKZnDR55D1G yqYekEru0gEY0UZBktETaLMLfpL t5ZMPMNRXMVHNsyTZcjUsu gZUjKSYcdzNnijD8MmeAILWqGrL xRec5W5muTCW+Lnxho1T3Ppl3IC m3RQM3wVpkNCTag154OVJr sCuceMpmpYJio95cHVYmvOJfArJ io415BRYwauO5COzbsIyjApm1bV GqtCTgn0umdYg3EnHqFJCx FakMMBAqzOozb7FoCdwWSXirv0e yxvHogCbhXKN3q6ArEVjvPXFrZH E4GqPuUC3+CgkJPGNvbCB2 CTxeC853OvMqiXApz4mcvTw0VmQ 2JXWoWy3KNIgwI77lO5WnbVY+Cg l4mBEeLQn+CgkJPHRyPgoJ FSi1gMGgq6C8lKC2ZjQppwKwa0b 6UJwiYHN8LlW9TEQ1uXZcyE6hhX ikcwqlvO5rYxU+CgkJCTxk cXLfU8itt1P2IfPih9IgfRmbfmS kWUDjWjOsp0uzWeukXWTvzN1vKY H1CeLzVVBqzBUlZBPwQV1d xpVsoQWwRKDhGdCrS2Ubi55sy6C mRVJZZ6hXMjSvHAI5VO0yAtXlUE 0iXzljNGYzNmVlLWFlZGYt PRVeTX03PZl8EICnEUUxDPSuHkN 3DgKkw9H1fHT2ZdPoUUIbvys7HE RweDsiPjxzcGFuIGNsYXNz CZTcSVDzL0Ogt27xiRRbcRX1Tq8 9u6XjtuDmcKpjQW3hPh6pbU20HC gfaQO4YGBuvZG5ZAFfwSMp FCJtj7ExfCscxfhnvX3oHRPuzO0 lOyI+F9pvHSNoD45mcPqrxL51DC 2lgBErXmlty0Qtae2HVYjU JPYekjJqxHWkvm4zCKUriBEfu39 6NG21EhPgZAvcd752RV11lIqsDV 2pCDEGU4ZOXB8LIXVIWfPq ZZluKNQxlaZxY6E9lUybGKLCQ7A 1WxA8KF6PMlJkGSUYT6PsZkKoGj 3XS1DBZBeXMgA6QfDwHMjt SVOnLBrwYDE1WgzgOOQ4AG22K4C iZGB1WANsFOTyGwMtPRv0ExfkEl 5YASjZCTMvuoAmgRBzwh7n TBJarSYmj087ZN40yNJrgWMdHDY kkI16WEPfFJUxqFV7Sr48KtR0MZ A6OC1oDWBtOTOuEPEyCuX2 Rv01HgYcGBAcFGOmYDOxGdOgz9E vj5MrksA2mOLlQVTonKfjtfM2aE ivWUt7AsmIUZh2O9Yzgt1C SIkFUS7wiJP+AfcBPBg7QXv6URS oDTYeYOFzHVNyA6Gwz68oQWLwUS BsTRNvWTNdEKBmHGrpr5Yb bAOvYMO7PZk7AHSaruSmy0RxJur xMbHjNLvhXWT2qC3dN60wWV4pXF 3TQhPkBMDvDvPzAtKncZI9 Jv4fTNSvJvxyMu4mXHbjJMO5XhE sTJSwQs98POfaJLDhZGj6YeQuLP H8pLfmEMMvFGPxlP6yPbC1 bQx3Yg28o9JnyvMspVPjtc8oLBK vLYL9iM0vERlkdMiynJZ+PHNwYW 0gk4N2xRG3ReYkzoDbp4Su Q4r0GmQua7vnQgB5LEw7FJYwQ52 bRKDje759NZXzUKRjwTpeFJylHp mMVZRRrLFjZexwa7Zhbb64 N1ZcAQ6+OhlLOZh6VRx0PLCnNJM zPSJkZGVtcmNvbnRlbnQiIGRkOm SixnZatnA2bJXwMLLEKJSB QDALB60HHIKjFPRtFkNdExDwXN9 oPZY8wXN6GcH4BIHDYHZkMFc8CY LwZUY4Rr0RPkVeZBYXSYSU CwnuDAM5AiQufBR8Vs10PgUbEaA yXr8rZHR3IMCzVRPsUKLdLT96S5 N4Jws7GHInQOBrDnkKZWp0 RHb6XBDnXWQiDMEoUUHvnlFbuxV oraPowTIhCVRdalXft8NdRjzuTc FyWJlnmN6vaD1flRnkQ7C4 rFofOGN5f4AszuflzNBrOGNnIdB tjdWylsP8hIXqVPXUVQZYZRTHD6 1ZQPGwXHCoJwQshCp6fCpc ICMqRNouLATiQLQ2FSJnYulkEiB 9CU25CHZ8IDGkAcSiXCRwVXOjI5 LqIcTtDdJ0uFgjzlffLG5t DMbhFT2sO3PuL1EvHT44MQWvu40 aQeyEXJg4OFn6CHU7bCxnRRVcMS HmaG26MUZcqZWvtV69ICRc OTRijxz6VVBykTddNh0jRWBhCzB bqURbczksJXCyURSkQTHwKtZ6OG z9GTRypYlkPgOkBQA5AlWt h8wqkqppokpyQVUeBCLlKBNvVzQ 1CAk9OWayKEHwdWxmJEilGaJst6 53CUT4tOqwMyKgk7BjSMq2 FKLsjlYis4QmG2g3LpOlw1PfHHw 3PRVbmKZoFAAqd5TubUrzzzmmrp 0pSMqhSkfSGDg1MAz3Jqcw ZJ0ruAU2Qu81OYFvXFleUU71QJO pIYOqHhHwNIYhDj9eNMt1DEbqG9 ChMDIuUtzuNC2HUnoVSDuc aXY+YgIwEMmrqO3oeCLpqPJwEBW svtYzAv4drV01DZHpGYHdt2QfJN dRCEvoeEgpER73lbAxEXCs PMGlDTC5ehveNWKtd2MktRWyCJK oKAKiy5ancm2uZ16rpDO1kSVgIE UhE3WfLPwcQxBry8shuuGx hiNnorIafROrMSOqtMeoUGW7b82 pMARgBYJlcqItbvGwbjZ9mNTxTO MxWN0lgX6vcRWuITkmDapg LMt8TnpKGUc9C6Uczp0MVYuWDP7 kaXY+SmeIKCisUUy8ChbFNMd4I3 Cnav7SPRaXMK5dbAY+CgoJ COb0KLv6FFLwUPAjTVGtVQBmQ1X jn34qWAExIPDpLFTpTJJpCYDiCZ raw9FjpKBnYHB0OZb1CBFx hoUow9ZlKhpzYuYuWDfhRZI6hQ0 yP55oMF4lTV1FTwRxABAoJmXpOg XvlNU5Vq3lYXPdKdVfLZ91 JKijEOP4HMRoEMNzRv3fRzHzXIV pJtB1QuPsUUE7tIdsCZGpIMRsiC 2mTpI1vBe3Pg59b3TfxtXj zMFbae8pLEDaNPU3yJ3jQYuldVa heSI+GGLcJK1xf0Y2hZE3YqRpkh Ibu5LbR6v4IxOfm0qnDiB4 IIi3YOSkH86bMWLrw082CJClOFI raDivBQamIvagi0Eofyhhl0DtSS Hbf3HgzRCZvOvtLTVhCD3e gTFtTkitu7Ffek4ONgfURDyojPM sP5xae8W8VuRyXI8qE60ivNGloE UwOUB9P89lG8FqbO6vAQWF XtHsNFgiv682WW36oDnpYU2fOO2 TP9ONYHQuYDAsDhFzEkKiLZ4rDU C5eFN0TuHzBaZtJsT6POO3 MEZfKROCWz59EylBSOXVDdO9O8E 4L1Q3NVBtwQD6Be9rFEizJRQiZK 1kSiadUYNoKZRjQJT6Yp3s AiAlZPE5GYnpDSSnHfnVFNe9SPj 2IGNsYXNzPSJkZGVtcmNvbnRlbn FdbIFvGpTwJChvl545DB56 iHflNP6jVRWNX2YSGX5OCMTDXmY bXFllubIqqAjvJQ5pNTk1YuM5CW S2HfJoQAP6BD73iYK3jfUg g9vuag7zNvBjwTJ9Ts10XmZnKAB 9PH4sNuVhCTM5HLPiKZTzYW96BO J0AySuNTN0VHRiHilUVSh0 CYi2NKWiQMVxJYGhNQVgsRLyjhN ixEIdHUL8WU19rWI6dGD0xBG4aS W7OmEbj7BlxMKpkJTeuVN2 Lg68MOp9QPSlAL3bHXAxEFFdNMY fVjcsAI1jSJQ7LcJpXtRzQYKtWd cIPYf2PSk7LBIsGYVsBPQq AJQcBDX9FEg4QWEtjnCes5WeReq mAuDbWPqdgK4veT9frEpoG3D9fE qwFAY8h9BcvssvyJJvHMwz EDAoAgIqYiFrZxImEJOoPe55FEV nKHCcP2KjBZopSOGsZSDsKWE4Ul 3tMJooGFkvpt9qKBBDIJ6x u9vbsa1nM87ulXC9kLSrBVvvi1U asNFqPukknOFaFFOmBL7lIVEydY 2kWXUhxLezJOF9h728NYbw WvboiD6rQ4PhfuRdR3BkbSNcvTc zLCBsaWtlbHkgZnJvbSBiaWxlIH TuOen7cJytklEsSFBzdwQy Xv6cKXkrzOqqx8NbEwLdpYCunIV 3cFE6jOOgLMArNZ1yqVYboE6oFS HqZJAyrF7hPXXyDNN8WWst mI3skXGlvCemUBYsvISfkDsaIlS aXEK2glWhggXjS12uj07zo0y8yJ EefOCruU0fV8meNDtaeGL5 eWBcnFHbu0BfbHKnyM8qOLIhpsB jPMPjYYRgFQnpSJBvjqQ3eGS0PO h8GP2sh6HjKB1xvWMjOVN4 a1ViFR92H5Cqgp6BHLqTAA4zhJB +KpoPRLocNPr0AclRBOm6O0Zsyy 6KTYjRTP9jwTK+CgoJCQk8 WEl3THEsMXFsAQYaIBExY9Igv46 gZGRyZWZyZXNoYWJsZSBkZGluc2 KxbXQnFNU0APv0YPZpppIj l5LqBdotLsQhMJxrNMA2lR2aD54 nLE9wDY0ZSqSbZGThXTrhDmOtfQ F0Wf91FzGdNUK3RZ3yD3M7 L (more content not included)... Normal [facility] Comment on above: Result Comment: Elec tronically Signed By: ANGEL BARRIOS, Neel Gamboa\Date and Time Signed: 02/15/21 15:08 EST Pathology Noteon 02-14-2021 Pathology Note [id number]#[id number]:127 [facility] Outside Colonoscopyon 2020 Outside Colonoscopy [id number]#1.00CD:127 [facility] Lab Reportson 02-07-2021 Lab Reports [id number]#1.00CD:127 [facility] Pre-Certification Formon Pre-Certification Form [id number]#1.00CD:127 [facility] Consent for Procedure/Surger yon 01-19-2021 Consent for Procedure/Surgery [id number]#1.00CD:127 [facility] Provider Letter FTon 01-19 Provider Letter [facility] January 19, 2021 AMADOR ABDALLA, [address] [place] [address] Re: EILF TURNER Date of : 1945 Thank you for your referral of Elif Turner who was seen on consultation on 01/18/2021 for epigastric pain with nausea. An EGD and colonoscopy are planned for further evaluation. I have enclosed my consultation note for your review. I will be happy to follow Elif. Sincerely, Neel Razo MD General Surgery [facility] Ambulatory Clinical Summaryo n 01-18-2021 Ambulatory Clinical Summary {[id number]}CD:61 4368 [facility] Physician Referralon 021 Physician Referral [id number]#[id number]:127 [facility] Consultation Noteon 12-07-19 21 Consultation Note [id number]#1.00CD:127 [facility] CNOVon 09-19-2017 CNOV Office Visit (VASSFT) -------[facility]UR[facility] ([id number]) 1945 [facility] Department09/19/17 11:30 AM CHIDI MELLO During your visit today, we recorded the following information about you: Pulse Respiration Blood pressure Weight 52/minute 16/minute 115/46 93.4 kg Height 1.626 Margarita Mello MD 09/19/2017 11:59 AM [facility] Department of Cardiovascular MedicineOUTPATIENT VISIT DATE September 19, 2017OUTPATIENT VISIT TYPENEWPRIMARY CARE PHYSICIAN:Amador Abdalla MD ([facility])[address] [place], [place] [address]Fgztn: [phone]: [phone] PHYSICIANChkiah Wilkins MD[address] [place] [address]BYZZW COMPLAINT:No chief complaint on file.HISTORY OF PRESENT ILLNESS:Elif Turner was referred for consultation by Dr. Zach Wilkins. Opinionsand recommendations in this consultation will be transmitted back to thereferring physician by [facility] notes or via mail.Ms. Turner is a 72 year old female who is seen today for evaluation fordiscomfort in the arch of her feet and mild discomfort in the legs when walking.Her walking is limited by osteoarthritis of the knees, hips and lower back. Sheuses a walker.She has difficulty in maintaining her glucose levels.Hx of CAD s/p PCI. On ASA, statin.HUMBERTO/PVR performed at [facility], right 0.94, left 1.14.PAST MEDICAL [...] Penicillins Rash- Prochlorperazine UnknownMEDICATIONS:medical supply, miscellaneous ([facility] USE DIRECTEDVENTOLIN HFA 90 mcg/actuation [...] ofhyperglycemia.Continue follow up with Dr Wilkins of podiatry.Beverley Wild Provider: TURNER WILKINS [[id number]]Allergies As of Date: 09/19/2017 Noted Allergy ReactionCLINDAMYCIN HCL 05/26/2016 10 - AnaphylaxisCYCLOBENZAPRINE HCL 12/11/2012 2 - RashEXENATIDE 12/27/2012 2 - RashIODINE AND IODIDE CONTAINING PROD*12/11/2012 2 - RashPENICILLINS 12/11/2012 2 - RashPROCHLORPERAZINE 12/11/2012 16 - UnknownDate Reviewed: 09/19/2017Reviewed by: Chidi Mello - Fully AssessedPrimary Visit Diagnosis:Primary osteoarthritis involving multiple joints [M15.0] Other Visit Diagnoses:Diabetic peripheral neuropathy associated with type 2 diabetes mellitus ([facility]) [E11.42] PAD (peripheral artery disease) ([facility]) [I73.9]Prescriptions as of 09/19/2017 Sig: JOHN LOPEZ MIS USE DIRECTED VENTOLIN HFA 90 MCG/ACTUATION* AMLODIPINE [...] to improve.Follow-up and Disposition History RecordedEncounter Number: [id number] Status:Closed by CHIDI MELLO MD on 09/19/17 Normal [facility] PROGRESSon 09-19-2017 Protein mass conc HNO ID: [id number] thor: Chiid Feldman: (none)Author Type: PhysicianType: Progress NotesFiled: 09/19/2017 11:59 AMNote Text:[facility] Department of Cardiovascular MedicineOUTPATIENT VISIT DATE September 19, 2017OUTPATIENT VISIT TYPENEWPRIMARY CARE PHYSICIAN:Amador Abdalla MD ([facility])[address] [place], [place] [address]Jwjor: [phone]: [phone] PHYSICIANChristopher Crystal Wilkins MD[address] [place] [address]XTJDK COMPLAINT:No chief complaint on file.HISTORY OF PRESENT ILLNESS:Elif Turner was referred for consultation by Dr. Zach Wilkins.Opinions and recommendations in this consultation will be transmitted backto the referring physician by [facility] notes or via mail.Ms. Turner is a 72 year old female who is seen today for evaluation fordiscomfort in the arch of her feet and mild discomfort in the legs whenwalking.Her walking is limited by osteoarthritis of the knees, hips and lowerback. She uses a walker.She has difficulty in maintaining her glucose levels.Hx of CAD s/p PCI. On ASA, statin.HUMBERTO/PVR performed at [facility], right 0.94, left 1.14.PAST MEDICAL [...] Rash- Prochlorperazine UnknownMEDICATIONS:medical supply, miscellaneous ([facility]) USE DIRECTEDVENTOLIN HFA 90 mcg/actuation inhaleramLODIPine (NORVASC) [...] Dr Wilkins of podiatry.Chidi Mello MD Normal [facility] Vital Signs Date Time Vital Sign Value Performing Clinician Facility 02-29-2024 11:47-0500 Body height 157.5 cm Amador Abdalla MD Work Phone: [facility] 02-29-2024 11:47-0500 Body mass index (BMI) [Ratio] 33.47 kg/m2 Amador Abdalla MD Work Phone: [facility] 02-29-2024 11:47-0500 Body temperature 97.11 [degF] Amador Abdalla MD Work Phone: [facility] 02-29-2024 11:47-0500 Body weight 83.01 kg Amador Abdalla MD Work Phone: [facility] 02-29-2024 11:47-0500 Diastolic blood pressure 80 mm[Hg] Amador Abdalla MD Work Phone: [facility] 02-29-2024 11:47-0500 Heart rate 77 /min Amador Abdalla MD Work Phone: [facility] 02-29-2024 11:47-0500 Respiratory rate 22 /min Amador Abdalla MD Work Phone: [facility] 02-29-2024 11:47-0500 SaO2% (BldA) [Mass fraction] 97 % Amador Abdalla MD Work Phone: [facility] 02-29-2024 11:47-0500 Systolic blood pressure 164 mm[Hg] Amador Abdalla MD Work Phone: [facility] 02-07-2024 10:05-0500 Body height 157.5 cm Turner Wilkins DPM Work Phone: [facility] 02-07-2024 10:05-0500 Body mass index (BMI) [Ratio] 34.57 kg/m2 Turner Wilkins DPM Work Phone: [facility] 02-07-2024 10:05-0500 Body weight 85.73 kg Turner Wilkins DPM Work Phone: [facility] 02-07-2024 10:05-0500 Respiratory rate 18 /min Turner Wilkins DPM Work Phone: [facility] 11-12-2023 14:28-0400 Body height 157.5 cm Amador Abdalla MD Work Phone: [facility] 11-12-2023 14:28-0400 Body mass index (BMI) [Ratio] 34.57 kg/m2 Amador Abdalla MD Work Phone: [facility] 11-12-2023 14:28-0400 Body temperature 97.11 [degF] Amador Abdalla MD Work Phone: [facility] 11-12-2023 14:28-0400 Body weight 85.73 kg Amador Abdalla MD Work Phone: [facility] 11-12-2023 14:28-0400 Diastolic blood pressure 60 mm[Hg] Amador Abdalla MD Work Phone: [facility] 11-12-2023 14:28-0400 Heart rate 90 /min Amador Abdalla MD Work Phone: [facility] 11-12-2023 14:28-0400 Respiratory rate 20 /min Amador Abdalla MD Work Phone: [facility] 11-12-2023 14:28-0400 SaO2% (BldA) [Mass fraction] 95 % Amador Abdalla MD Work Phone: [facility] 11-12-2023 14:28-0400 Systolic blood pressure 158 mm[Hg] Amador Abdalla MD Work Phone: [facility] 06-25-2021 12:15-0400 Body temperature 98.1 [degF] MD Amador Abdalla Work Phone: [facility] 06-25-2021 12:15-0400 Diastolic blood pressure 72 mm[Hg] MD Amador Abdalla Work Phone: [facility] 06-25-2021 12:15-0400 Heart rate 64 /min MD Amador Abdalla Work Phone: [facility] 06-25-2021 12:15-0400 Respiratory rate 18 /min MD Amador Abdalla Work Phone: [facility] 06-25-2021 12:15-0400 SaO2% (BldA) [Mass fraction] 96 % MD Amador Abdalla Work Phone: [facility] 06-25-2021 12:15-0400 Systolic blood pressure 127 mm[Hg] MD Amador Abdalla Work Phone: [facility] 06-25-2021 08:00-0400 Inhaled oxygen flow rate 3 L/min MD Amador Abdalla Work Phone: [facility] 06-25-2021 06:00-0400 Body weight 93.5 kg MD Amador Abdalla Work Phone: [facility] 06-24-2021 04:05-0400 Body height 162.56 cm MD Amador Abdalla Work Phone: [facility] 06-24-2021 04:05-0400 Body mass index (BMI) [Ratio] 34.9 kg/m2 MD Amador Abdalla Work Phone: [facility] 06-23-2021 19:30-0400 Diastolic blood pressure 61 mm[Hg] [facility]-23-2021 19:30-0400 Heart rate 80 /min [facility] 06-23-2021 19:30-0400 Respiratory rate 16 /min Et3 [facility] 06-23-2021 19:30-0400 SaO2% (BldA) [Mass fraction] 98 % [facility] 06-23-2021 19:30-0400 Systolic blood pressure 132 mm[Hg] Et3 [facility] Encounters Encounter Date Encounter Type Care Provider Facility Start: 03-25-2024 End: 03-26-2024 Refill Amador Abdalla MD Work Phone: [facility] Comment on above: Primary insomnia Start: 03-19-2024 End: 03-19-2024 External Result Encounter Amador Abdalla MD Work Phone: [facility] External Department Unsolicited Start: 03-19-2024 End: 03-19-2024 External Result Encounter Amador Abdalla MD Work Phone: [facility] External Department Unsolicited Start: 03-19-2024 End: 03-19-2024 ambulatory AMADOR ABDALLA [facility] Start: 03-05-2024 End: 03-05-2024 Clinisync Result Encounter Amador Abdalla MD Work Phone: [facility] External Department Unsolicited Start: 03-05-2024 End: 03-05-2024 Clinisync Result Encounter Amador Abdalla MD Work Phone: [facility] External Department Unsolicited Start: 02-29-2024 End: 02-29-2024 Bamboo flowsheet Amador Abdalla MD Work Phone: [facility] Start: 02-29-2024 End: 02-29-2024 Bamboo flowsheet Amador Abdalla MD Work Phone: [facility] Start: 02-29-2024 End: 02-29-2024 ambulatory AMADOR ABDALLA Not Available Start: 02-29-2024 End: 02-29-2024 Office outpatient visit 25 minutes Amador Abdalla MD Work Phone: [facility] Comment on above: Left elbow pain (Krystle bia Dx); Type 2 diabetes mellitus with hyperglycemia, without long-term current use of insulin ([facility]); Benign essential hypertension ([facility] Chronic diastolic heart failure ([facility]); Encounter for long-term (current) use of medications; Primary osteoarthritis of both knees; Stage 3b chronic kidney disease (CKD) ([facility]); Dyslipidemia ([facility]); Class 1 obesity due to excess calories with serious comorbidity and body mass index (BMI) of 33.0 to 33.9 in adult; Type 2 diabetes mellitus with diabetic chronic kidney disease ([facility]) Start: 02-25-2024 End: 02-25-2024 Refill Amador Abdalla MD Work Phone: [facility] Comment on above: Primary osteoarthrit is of both knees Start: 02-07-2024 End: 02-07-2024 Bamboo flowsheet Turner Wilkins DPM Work Phone: [facility] Start: 02-07-2024 End: 02-07-2024 Bamboo flowsheet Turner Wilkins DPM Work Phone: [facility] Start: 02-07-2024 End: 02-07-2024 Patient encounter procedure Turner Wilkins DPM Work Phone: [facility] Comment on above: Type 2 diabetes makayla itus without complication, unspecified whether snf insulin use ([facility]) (Primary Dx); Pain due to onychomycosis of toenails of both feet; Venous insufficiency Start: 02-07-2024 End: 02-07-2024 ambulatory TURNER WILKINS Not Available Start: 01-23-2024 End: 01-23-2024 Refill Amador Abdalla MD Work Phone: [facility] Comment on above: Primary osteoarthrit is of both knees Start: 01-22-2024 End: 01-22-2024 Refill Amador Abdalla MD Work Phone: [facility] Comment on above: Primary insomnia Start: 11-18-2023 End: 11-20-2023 Clinisync Result Encounter Generic External Data Provider [facility] External Department Unsolicited Start: 11-18-2023 End: 11-20-2023 Clinisync Result Encounter Generic External Data Provider [facility] External Department Unsolicited Start: 11-12-2023 End: 11-12-2023 Office outpatient visit 25 minutes Amador Abdalla MD Work Phone: [facility] Comment on above: Type 2 diabetes makayla itus with hyperglycemia, without long-term current use of insulin (CMS/HCC) (Primary Dx); Benign essential hypertension (CMS/HCC); Chronic diastolic heart failure (CMS/HCC); Major depressive disorder, recurrent episode, mild (HCC) (CMS/HCC); Generalized anxiety disorder (CMS/HCC); Fibromyalgia; Gastroesophageal reflux disease without esophagitis; Primary insomnia; Primary osteoarthritis of both knees; Stage 3b chronic kidney disease (CKD) (CMS/HCC); Dyslipidemia (CMS/HCC); Encounter for long-term (current) use of medications; Obesity (BMI 30-39.9); Acute UTI; Skin candidiasis; CAD in [place] artery (CMS/HCC); Type 2 diabetes mellitus with diabetic chronic kidney disease (HCC) (CMS/HCC) Start: 11-12-2023 End: 11-12-2023 ambulatory AMADOR ABDALLA Not Available Start: 11-12-2023 End: 11-12-2023 Bamboo flowsheet Amador Abdalla MD Work Phone: [facility] Start: 11-12-2023 End: 11-12-2023 Bamboo flowsheet Amador Abdalla MD Work Phone: [facility] Start: 08-20-2023 End: 08-20-2023 ambulatory [facility] Start: 04-26-2023 End: 04-26-2023 ambulatory TURNER WILKINS Not Available Start: 03-13-2023 End: 03-13-2023 ambulatory AMADOR ABDALLA Not Available Start: 01-31-2023 End: 01-31-2023 ambulatory [facility] Start: 10-12-2022 Rx Renewal Zafar mcfadden DO Work Phone: [facility] DO Work Phone: Start: 08-29-2022 End: 08-29-2022 ambulatory CARMINA NAVA [facility] Start: 07-03-2022 End: 07-04-[address] AMADOR ABDALLA Facility:[facility] Start: 05-26-2022 End: 05-26-[address] AMADOR ABDALLA Facility:[facility] Start: 05-14-2022 End: 05-16-[address] AMADOR ABDALLA Facility:[facility]1 Start: 05-04-2022 End: 05-05-[address] AMADOR ABDALLA Facility:[facility]1 Start: 12-01-2021 End: 12-02-[address] AMADOR ABDALLA Facility:[facility]1 Start: 10-20-2021 Rx Renewal Zafar Read lesa DO [facility] Work Phone: Start: 09-09-2021 End: 09-10-[address] AMADOR ABDALLA Facility:[facility]1 Start: 08-31-2021 End: 08-31-[address] AMADOR ABDALLA Facility:[facility]1 Start: 08-27-2021 End: 08-27-2021 ambulatory TRENTON COLLINS Facility:[facility]1 Start: 08-23-[address] CAROLINA goldenty:[facility]1 Start: 08-16-2021 End: 08-16-[address] BERNADETTE Mars Facility:[facility]1 Start: 08-01-2021 End: 08-02-2021 ambulatory ELY MENG Facility:[facility]1 Start: 07-27-2021 End: 07-28-2021 ambulatory ELY MENG Facility:[facility]1 Start: 07-15-2021 End: 07-17-[address] AMADOR ABDALLA Facility:[facility]1 Start: 06-25-2021 End: 07-29-2021 ambulatory UNKNOWN PROVIDER Facility:[facility] Start: 06-24-2021 End: 06-25-2021 Evaluation and management of inpatient Amador Abdalla Facility:[facility] Start: 06-24-2021 End: 06-25-2021 Evaluation and management of inpatient MD Amador Abdalla Work Phone: [facility] Start: 06-23-2021 End: 06-23-2021 [facility]ulatory [facility] Start: 06-23-2021 End: 06-23-2021 Emergency department patient visit [facility] Emergency Triage, Treat and Transport Comment on above: Arrived Start: 11-21-2018 End: 11-24-2018 Patient encounter procedure KELLI HANKINS Facility:[facility] Start: 09-19-2017 End: 09-19-2017 Patient encounter CHIDI KASAILIN [facility] Procedures Date Procedure Procedure Detail Performing Clinician Start: 03-19-2024 Basic metabolic pane l calcium total Amador Abdalla MD Work Phone: Start: 03-05-2024 ALL CBC WITH AUTO DIFF Amador Abadlla MD Work Phone: Start: 11-18-2023 Bacteria identified in Urine by Culture Generic External Data Provider Start: 06-24-2021 CL Iliac/Fem w/LHC MD Karin Abdalla Work Phone: Start: 06-24-2021 CL PCI FINAL INSPECTOR 1st Vesse l RCA BAMBI MD Amador Abdalla Work Phone: Start: 06-24-2021 Insertion of cathete r into urinary bladder MD Amador Abdalla Work Phone: Start: 06-24-2021 Therapeutic injectio n iv push each new drug MD Amador Abdalla Work Phone: Start: 06-24-2021 MD Amador snowden Work Phone: Plan of Treatment Date Care Activity Detail Author Start: 03-19-2025 Urine screening for protein Diabetes: Urine Protein Screening [facility] Start: 03-05-2025 Urine screening for protein Diabetes: Urine Protein Screening [facility] Start: 09-16-2024 Hemoglobin A1c measurement Diabetes: Hemoglobin A1C [facility] Start: 05-27-2024 End: 05-27-2024 Patient encounter procedure 05/27/2024 11:00 AM EDT [facility] [address] [place] [address] Amador Abdalla MD [address] [place] [address] [facility] Start: 04-24-2024 End: 04-24-2024 Patient encounter procedure 04/24/2024 10:00 AM EST Office Visit [facility] [address] [facility] [address] [place] [phone] Turner Wilkins DPM [address] [facility] [address] [place] [address] [facility] Start: 03-13-2024 End: 03-13-2024 Patient encounter procedure 03/13/2024 1:30 PM EST Office Visit [facility] [address] [place] [id number] Jaun Alexis, BOTTLER [address] [place], [place] [id number] [facility] Start: 02-29-2024 End: 02-28-2025 Basic metabolic 1998 panel - Serum or Plasma Basic metabolic panel Lab Routine Stage 3b chronic kidney disease (CKD) ([facility]) Expected: 02/29/2024 (Approximate), Expires: 02/28/2025 [facility] Comment on above: Expected: 02/29/2024 (Approximate), Expires: 02/28/2025 Start: 02-29-2024 End: 02-28-2025 CBC W Auto Differential panel - Blood CBC and differential Lab Routine Encounter for long-term (current) use of medications Expected: 02/29/2024 (Approximate), Expires: 02/28/2025 [facility] Comment on above: Expected: 02/29/2024 (Approximate), Expires: 02/28/2025 Start: 02-29-2024 End: 02-28-2025 Hemoglobin A1c/Hemoglobin.total in Blood Hemoglobin A1c Lab Routine Type 2 diabetes mellitus with hyperglycemia, without long-term current use of insulin ([facility]) Expected: 02/29/2024 (Approximate), Expires: 02/28/2025 [facility] Comment on above: Expected: 02/29/2024 (Approximate), Expires: 02/28/2025 Start: 02-29-2024 End: 02-28-2025 Hepatic function 2000 panel - Serum or Plasma Hepatic function panel Lab Routine Encounter for long-term (current) use of medications Expected: 02/29/2024 (Approximate), Expires: 02/28/2025 [facility] Comment on above: Expected: 02/29/2024 (Approximate), Expires: 02/28/2025 Start: 02-29-2024 End: 02-28-2025 Lipid 1996 panel - Serum or Plasma Lipid panel Lab Routine Dyslipidemia ([facility]) Expected: 02/29/2024 (Approximate), Expires: 02/28/2025 [facility] Comment on above: Expected: 02/29/2024 (Approximate), Expires: 02/28/2025 Start: 02-29-2024 End: 02-28-2025 Microalbumin/Creatinine panel in random Urine Microalbumin / creatinine, urine ratio Lab Routine Type 2 diabetes mellitus with hyperglycemia, without long-term current use of insulin ([facility]) Expected: 02/29/2024 (Approximate), Expires: 02/28/2025 [facility] Work Phone: Comment on above: Expected: 02/29/2024 (Approximate), Expires: 02/28/2025 Start: 02-29-2024 End: 02-28-2025 Thyrotropin [Units/volume] in Serum or Plasma TSH Lab Routine Class 1 obesity due to excess calories with serious comorbidity and body mass index (BMI) of 33.0 to 33.9 in adult Expected: 02/29/2024 (Approximate), Expires: 02/28/2025 [facility] Comment on above: Expected: 02/29/2024 (Approximate), Expires: 02/28/2025 Start: 02-29-2024 End: 02-28-2025 XR Knee - left 1 or 2 Views XR knee 1 or 2 views left Imaging Routine Primary osteoarthritis of both knees Expected: 02/29/2024, Expires: 02/28/2025 [facility] Comment on above: Expected: 02/29/2024 , Expires: 02/28/2025 Start: 02-29-2024 End: 02-28-2025 XR Knee - right 1 or 2 Views XR knee 1 or 2 views right Imaging Routine Primary osteoarthritis of both knees Expected: 02/29/2024, Expires: 02/28/2025 [facility] Comment on above: Expected: 02/29/2024 , Expires: 02/28/2025 Start: 02-29-2024 End: 02-29-2024 Patient encounter procedure 02/29/2024 11:30 AM EST Office Visit [facility] [address] [place] [address] Amador Abdalla MD [address] [place] [phone] [facility] Start: 02-07-2024 End: 02-07-2024 Patient encounter procedure [facility] Comment on above: Type 2 diabetes makayla itus without complication, unspecified whether snf insulin use ([facility]) (Primary Dx); Pain due to onychomycosis of toenails of both feet; Venous insufficiency Start: 02-02-2024 Hemoglobin A1c measurement Diabetes: Hemoglobin A1C [facility] Start: 01-23-2024 End: 01-23-2024 Patient encounter procedure 01/23/2024 10:00 AM EST Office Visit [facility] [address] [place] [address] Amador Abdalla MD [address] [place] [phone] [facility] Start: 11-12-2023 End: 11-12-2023 Patient encounter procedure 11/12/2023 2:15 PM EDT Office Visit [facility] [address] [place] [address] Amador Abdalla MD [address] [place] [phone] Arrived [facility] Comment on above: Arrived Start: 11-12-2023 End: 11-11-2024 Albumin, urine, random Albumin, urine, random Lab Routine Type 2 diabetes mellitus with hyperglycemia, without long-term current use of insulin ([facility]) Expected: 11/12/2023 (Approximate), Expires: 11/11/2024 [facility] Work Phone: Comment on above: Expected: 11/12/2023 (Approximate), Expires: 11/11/2024 Start: 11-12-2023 End: 11-11-2024 Basic metabolic 1998 panel - Serum or Plasma Basic metabolic panel Lab Routine Stage 3b chronic kidney disease (CKD) ([facility]) Expected: 11/12/2023 (Approximate), Expires: 11/11/2024 [facility] Comment on above: Expected: 11/12/2023 (Approximate), Expires: 11/11/2024 Start: 11-12-2023 End: 11-11-2024 CBC W Auto Differential panel - Blood CBC and differential Lab Routine Encounter for long-term (current) use of medications Expected: 11/12/2023 (Approximate), Expires: 11/11/2024 [facility] Comment on above: Expected: 11/12/2023 (Approximate), Expires: 11/11/2024 Start: 11-12-2023 End: 11-11-2024 Hemoglobin A1c/Hemoglobin.total in Blood Hemoglobin A1c Lab Routine Type 2 diabetes mellitus with hyperglycemia, without long-term current use of insulin ([facility]) Expected: 11/12/2023 (Approximate), Expires: 11/11/2024 [facility] Comment on above: Expected: 11/12/2023 (Approximate), Expires: 11/11/2024 Start: 11-12-2023 End: 11-11-2024 Hepatic function 2000 panel - Serum or Plasma Hepatic function panel Lab Routine Encounter for long-term (current) use of medications Expected: 11/12/2023 (Approximate), Expires: 11/11/2024 [facility] Comment on above: Expected: 11/12/2023 (Approximate), Expires: 11/11/2024 Start: 11-12-2023 End: 11-11-2024 Lipid 1996 panel - Serum or Plasma Lipid panel Lab Routine Dyslipidemia (CMS/HCC) Expected: 11/12/2023 (Approximate), Expires: 11/11/2024 [facility] Comment on above: Expected: 11/12/2023 (Approximate), Expires: 11/11/2024 Start: 11-12-2023 End: 11-11-2024 Thyrotropin [Units/volume] in Serum or Plasma TSH Lab Routine Obesity (BMI 30-39.9) Expected: 11/12/2023 (Approximate), Expires: 11/11/2024 [facility] Comment on above: Expected: 11/12/2023 (Approximate), Expires: 11/11/2024 Start: 10-21-2023 Influenza vaccination Influenza Vacc ine (#1) [facility] Start: 09-06-2023 Urine screening for protein Diabetes: Urine Protein Screening [facility] Start: 05-26-2023 Urine screening for protein Diabetes: Urine Protein Screening [facility] Start: 06-24-2021 Plain chest X-ray XR chest 1V [facility] Start: 11-02-2018 Pneumococcal Vaccine : 65+ Years (2 of 2 - PCV) Pneumococcal Vaccine: 65+ Years (2 of 2 - PCV) [facility] Start: 07-10-2012 Pneumococcal vaccination Pneumococcal Vaccine(s) (65+ yrs) (1 - PCV) [facility] Start: 07-10-2012 Screening for osteoporosis Bone Densitometry [facility] Start: 07-10-1997 Measurement of occul t blood in single stool specimen FIT [facility] Start: 07-10-1997 Screening for malign ant neoplasm of breast Mammography [facility] Start: 07-10-1997 Screening for malign ant neoplasm of colon CRC Screening [facility] Start: 07-10-1997 Shingles (RZV) Vacci ne (1 of 2) Shingles (RZV) Vaccine (1 of 2) [facility] Start: 07-10-1992 Cholesterol [Mass/volume] in Serum or Plasma Cholesterol [facility] Start: 07-10-1965 Hepatitis C screening Hepatitis C An tibody [facility] Start: 07-10-1965 Tetanus + diphtheria + acellular pertussis vaccine (product) Tdap Booster [facility] Start: 07-10-1957 Glaucoma screening Diabetes: R etinopathy Screening [facility] Start: 07-10-1952 COVID-19 Vaccine (1) COVID-19 Vaccin e (1) [facility] Start: 1945 Hemoglobin A1c measurement Diabetes: Hemoglobin A1C [facility] Start: 1945 Medicare Annual Wellness (AWV) Medicare Annual Wellness (AWV) [facility] Start: 1945 Screening for malign ant neoplasm of colon Colonoscopy [facility] Basic metabolic 1998 panel - Serum or Plasma Basic metabolic panel Lab Routine 03/19/2024 9:14 AM EST [facility] Work Phone: Patient Education Coronary Angio plasty (DC) Liraglutide Angina (DC) Drug Eluting Stents [facility] Work Phone: Patient referral [facility] Work Phone: Immunizations Immunization Date Immunization Notes Care Provider Fa cility 12-20-2021 influenza virus vacc ine, unspecified formulation Amador Abdalla MD Work Phone: [facility] Payers Date Payer Category Payer Medicare [id number] 2021 Self-pay [id number] 2021 Medicare AN[employer]M MEDICARE ADVANTAGE [facility] MEDICARE ADVANTAGE [id number] 2021-Present [address] [place] [address] [id number] 2021 Medicare (Managed Care) [facility] [id number] 2019 Medicare [id number] 2018 Medicaid [id number] 1959 Medicaid [id number] 1959 Medicare [id number] 1959 Unknown [id number] 1947 Unknown [id number] 2.16840.1.038779.3.579.2. 647 1947 Unknown [id number] 2.16840.1.998886.3.579.2. 732 1947 Unknown [id number] 2.16840.1.837927.3.579.2. 593 1947 Unknown [id number] 2.16840.1.870759.3.579.2. 593 1947 Unknown [id number] 2.16840.1.424183.3.579.2. 593 1947 Unknown [id number] 2.16840.1.451663.3.579.2. 593 1947 Unknown [id number] 2.16840.1.300231.3.579.2. 593 1947 Unknown [id number] 2.16.840.1.619676.3.579.2. 593 1947 Unknown [id number] 2.16840.1.871135.3.579.2. 593 1947 Unknown [id number] 2.16.840.1.841272.3.579.2. 593 1947 Unknown [id number] 2.16.840.1.267299.3.579.2. 593 1947 Unknown [id number] 2.16.840.1.366252.3.579.2. 593 1947 Unknown [id number] 2.16.840.1.623213.3.579.2. 593 1947 Unknown [id number] 2.16.840.1.283428.3.579.2. 593 1947 Unknown [id number] 2.16.840.1.021166.3.579.2. 593 1947 Unknown [id number] 2.16.840.1.365493.3.579.2. 1259 1947 Unknown [id number] 2.16.840.1.651794.3.579.2. 1259 1947 Unknown [id number] 2.16.840.1.965592.3.579.2. 1259 1947 Unknown [id number] 2.16.840.1.702115.3.579.2. 1259 1947 Unknown [id number] 2.16.840.1.829506.3.579.2. 1259 1947 Unknown [id number] 2.16.840.1.796696.3.579.2. 1286 Medicare [id number] Unknown Unknown [id number] 2.16.840.1.640196.3.579.2. 531 Social History Date Type Detail Facility Tobacco smoking stat us [facility] Tobacco smoking consumption unknown [facility] Work Phone: Start: 1945 Sex Assigned At [facility] file [facility] Start: 06-24-2021 End: 10-19-2022 Tobacco smoking status [facility] Never smoked tobacco (finding) [facility] Start: 1945 Sex Assigned At Female F [facility] Start: 10-19-2022 Tobacco use and exposure Smokeless tobacco non-user [facility] Start: 11-12-2023 End: 02-29-2024 Alcoholic beverage intake Lifetime non-drinker (finding) [facility] Start: 11-12-2023 End: 01-22-2024 History of Social function [facility] Start: 11-12-2023 End: 01-22-2024 Tobacco use panel [facility] How often do you nee d to have someone help you when you read instructions, pamphlets, or other written material from your doctor or pharmacy [SILS] Sometimes [facility] Do you belong to any clubs or organizations such as jew groups, unions, fraternal or athletic groups, or school groups? No [facility] Are you now , , , , never or living with a partner? [facility] How often to you hav e a drink containing alcohol? Never [facility] How hard is it for y ou to pay for the very basics like food, housing, medical care, and heating Not very hard [facility] Do you feel stress - tense, restless, nervous, or anxious, or unable to sleep at night because your mind is troubled all the time - these days [OSQ] To some extent [facility] (I/We) worried wheth er (my/our) food would run out before (I/we) got money to buy more. Never true [facility] NEGATED: Highlighted rowStart: NINF History of tobacco use Passive smoker [facility] Medical Equipment Procedure Code Equipment Code Equipment Origin al Text Equipment Identifier Dates 1 each by Other route Daily Use as instructed [id number] Start: 03-20-2024 1 each Daily [id number] Start: 03-20-2024 Goals Date Patient Goal Desired Activity /State Functional Status Date Assessment Result Facility 06-25-2021 Functional status Patient at Baseline [facility] Work Phone: Mental Status Date Assessment Result Facility 06-25-2021 Cognitive function Cognitive Sta tus Patient is Progressing Toward Baseline [facility] Work Phone: Clinical Notes 01-18-2021 to 03-26-2024 Telephone Encounter - Amador Abdalla MD - 03/26/2024 3:01 PM ESTTelephone Encounter - Amador Abdalla MD - 03/26/2024 3:01 PM ESTAmador Abdalla MD - 02/29/2024 2:13 PM EST Note Date & Type Note Facility 03-26-[address] [facility] 03-26-2024 Miscellaneous Notes documented in this encounter [facility] 02-29-2024 History of Presen t illness Narrative Associated Problem(s): Type 2 diabetes mellitus with hyperglycemia, without long-term current use of insulin (CMS/HCC) Not checking BS and due for A1C. BS elevated and not controlled. Script for CGM to pharmacy. Stick to ADA diet and limit carbs. Associated Problem(s): Stage 3b chronic kidney disease (CKD) (CMS/HCC) Check labs Associated Problem(s): Primary osteoarthritis of both knees Pain worse and check x-ray. Refer to ortho and use norco PRN. Associated Problem(s): Left elbow pain Pain improved and monitor. Associated Problem(s): Class 1 obesity due to excess calories with serious comorbidity and body mass index (BMI) of 33.0 to 33.9 in adult Weight loss indicated. Associated Problem(s): Chronic diastolic heart failure (CMS/HCC) Edema stable and continue medication. Elevate legs PRN. Follow up with cardiology. Associated Problem(s): Benign essential hypertension (CMS/HCC) BP elevated today but did not take medication and usually normal. Continue to monitor PRN. Images from the original note were not included. Subjective Patient ID: Elif Turner is a 78 y.o. female who presents for Follow-up ([facility] er f/up 02/23/24) and Knee Pain. ER follow up from 02/22 after a fall. Patient lost balance and fell into fridge. Hit left elbow and causes skin tear. To ER and x-ray with questionable fracture on medial epicondyle but no pain. Overall improved but still mild pain. Not checking BS away from office but recently over 300 in ER. Did not get A1C after last visit. Tries to eat well and stick to ADA diet. Denies signs of elevated BS such as polyuria, polyphagia or polydipsia. Not checking BP away from office and elevated today at 164/80. Forgot to take meds this am. Previously BP well controlled. Edema controlled with medication. Mild swelling at end of day and if on feet a lot. Edema improved in am and with elevation. Continues to have problems with bilateral knees. Frequent popping, clicking, and grinding. Very unsteady and feels like will give out. No imaging for several years. Right worse than left. Requests referral to ortho for possible injections. Review of Systems Respiratory: Negative for cough, shortness of breath and wheezing. Cardiovascular: Negative for chest pain and palpitations. Gastrointestinal: Negative for abdominal pain, diarrhea, nausea and vomiting. Genitourinary: Negative for dysuria. Objective Physical Exam Constitutional: General: She is not in acute distress. Appearance: Normal appearance. HENT: Head: Normocephalic. Right Ear: Tympanic membrane normal. Left Ear: Tympanic membrane normal. Eyes: Extraocular Movements: Extraocular movements intact. Pupils: Pupils are equal, round, and reactive to light. Cardiovascular: Rate and Rhythm: Normal rate and regular rhythm. Heart sounds: No murmur heard. No friction rub. No gallop. Pulmonary: Effort: Pulmonary effort is normal. Breath sounds: Normal breath sounds. No wheezing, rhonchi or rales. Abdominal: General: Bowel sounds are normal. There is no distension. Palpations: Abdomen is soft. Tenderness: There is no abdominal tenderness. There is no guarding or rebound. Musculoskeletal: Cervical back: Neck supple. Right lower leg: No edema. Left lower leg: No edema. Neurological: Mental Status: She is alert. Assessment/Plan Problem List Items Addressed This Visit Dyslipidemia ([facility]/HCC) Relevant Orders Lipid panel Chronic diastolic heart failure ([facility]) Edema stable and continue medication. Elevate legs PRN. Follow up with cardiology. Primary osteoarthritis of both knees Pain worse and check x-ray. Refer to ortho and use norco PRN. Relevant Orders XR knee 1 or 2 views right XR knee 1 or 2 views left Ambulatory referral to Orthopaedic Surgery Stage 3b chronic kidney disease (CKD) ([facility]) Check labs Relevant Orders Basic metabolic panel Type 2 diabetes mellitus with hyperglycemia, without long-term current use of insulin ([facility]) Not checking BS and due for A1C. BS elevated and not controlled. Script for CGM to pharmacy. Stick to ADA diet and limit carbs. Relevant Medications Continuous Glucose Blind Hooker (Dexcom G7 Blind Hooker) device Continuous Glucose Sensor (Dexcom G7 Sensor) misc Other Relevant Orders Microalbumin / creatinine, urine ratio Hemoglobin A1c Benign essential hypertension ([facility]) BP elevated today but did not take medication and usually normal. Continue to monitor PRN. Encounter for long-term (current) use of medications Relevant Orders CBC and differential Hepatic function panel Class 1 obesity due to excess calories with serious comorbidity and body mass index (BMI) of 33.0 to 33.9 in adult Weight loss indicated. Relevant Orders TSH Left elbow pain - Primary Pain improved and monitor. documented in this encounter [facility] 02-07-2024 History of Presen t illness Narrative Patient: Elif Turner : 1945 PCP: Amador Abdalla MD SUBJECTIVE This is a 78 y.o. female that presents today with a CC of elongated, thick nails. Pt states nails have been elongated and thick for many years and cause pain with ambulation in shoegear. Pt has tried previous treatment with minimal relief. Pt presents today for nail care and treatment. Patient is DM2 Patient has positive history of venous stasis to bilateral lower extremities. Allergies: Allergies Allergen Reactions Codeine Hives Compazine [Prochlorperazine] Doxycycline Diarrhea Iodinated Contrast Media Hives Other Reaction(s): itching/rash Levofloxacin Liraglutide Nausea Only Promethazine Sucralfate Other Ticagrelor Other Reaction(s): sickness Trazodone Nausea Only and GI intolerance Cyclobenzaprine Itching, Hives and Rash Exenatide Nausea Only and Rash Other Reaction(s): itching Penicillins Itching, Hives and Rash Past Medical History: Past Medical History: Diagnosis Date Anxiety Arachnoid cyst Bradycardia CAD (coronary artery disease) ([facility]) CAD in [place] artery [facility] [address]) Cerebrovascular disease Chronic constipation Chronic diastolic heart failure ([facility] [address]) Chronic sinusitis, unspecified location CVA (cerebral vascular accident) ([facility] [address]) Depression ([facility] [address] Diabetes ([facility] [address]) Dyslipidemia ([facility] [address]) Fibromyalgia SCOTTY (generalized anxiety disorder) ([facility] [address]) GERD (gastroesophageal reflux disease) Hiatal hernia HTN (hypertension) ([facility] [address]) Hyperkalemia Hyperlipidemia ([facility] [address]) Insomnia, persistent Kidney disease MDD (major depressive disorder), recurrent episode, mild ([facility]) ([facility] [address]) Overflow incontinence Primary osteoarthritis of both knees Pulmonary hypertension ([facility] [address]) Seasonal allergic rhinitis due to pollen Stage 3b chronic kidney disease (CKD) ([facility] [address]) Type 2 diabetes mellitus with hyperglycemia, without long-term current use of insulin ([facility] [address]) Vitamin D deficiency Medications: Current Outpatient Medications: ALPRAZolam (Xanax) 0.5 MG tablet, TAKE 1 TABLET BY MOUTH THREE TIMES A DAY NEEDED, Disp: 90 tablet, Rfl: 0 amLODIPine (Norvasc) 10 MG tablet, Take 10 mg by mouth in the morning., Disp: , Rfl: aspirin 81 MG chewable tablet, Chew 81 mg in the morning., Disp: , Rfl: atorvastatin (Lipitor) 80 MG tablet, TAKE 1 TABLET BY MOUTH EVERYDAY AT BEDTIME, Disp: 90 tablet, Rfl: 3 buPROPion XL (Wellbutrin XL) 150 MG 24 hr tablet, Take 1 tablet by mouth in the morning., Disp: , Rfl: carvedilol (Coreg) 12.5 MG tablet, Take 12.5 mg by mouth in the morning and 12.5 mg in the evening. Take with meals., Disp: , Rfl: cholecalciferol (Vitamin D3) 25 MCG (1000 UT) tablet, TAKE 1 TABLET BY MOUTH EVERY DAY, Disp: 90 tablet, Rfl: 3 clopidogrel (Plavix) 75 MG tablet, Take 1 tablet by mouth in the morning., Disp: , Rfl: famotidine (Pepcid) 40 MG tablet, TAKE 1 TABLET BY MOUTH EVERY DAY, Disp: 90 tablet, Rfl: 3 fluticasone (Flonase) 50 MCG/ACT nasal spray, SPRAY 1 SPRAY INTO EACH NOSTRIL DAILY, Disp: 16 mL, Rfl: 2 furosemide (Lasix) 20 MG tablet, Take 1 tablet (20 mg) by mouth Daily, Disp: 90 tablet, Rfl: 3 hydrALAZINE (Apresoline) 100 MG tablet, Take 1 tablet by mouth in the morning and 1 tablet in the evening and 1 tablet before bedtime., Disp: , Rfl: HYDROcodone-acetaminophen (Smithland) 5-325 MG tablet, Take 1 tablet by mouth 3 (three) times a day as needed for severe pain, Disp: 90 tablet, Rfl: 0 Januvia 25 MG tablet, TAKE 1 TABLET BY MOUTH EVERY DAY, Disp: 90 tablet, Rfl: 1 methocarbamol (Robaxin) 750 MG tablet, Take 750 mg by mouth in the morning and 750 mg at noon and 750 mg in the evening and 750 mg before bedtime., Disp: , Rfl: metoclopramide (Reglan) 5 MG tablet, TAKE 1 TABLET BY MOUTH FOUR TIMES A DAY, Disp: 120 tablet, Rfl: 5 montelukast (Singulair) 10 MG tablet, TAKE 1 TABLET BY MOUTH EVERYDAY AT BEDTIME, Disp: 90 tablet, Rfl: 5 nitroglycerin (Nitrostat) 0.4 MG SL tablet, Place 0.4 mg under the tongue every 5 (five) minutes if needed., Disp: , Rfl: nystatin (Mycostatin) 384254 UNIT/GM powder, Apply 1 application topically in the morning and 1 application in the evening and 1 application before bedtime., Disp: 60 g, Rfl: 3 ondansetron ODT (Zofran-ODT) 4 MG disintegrating tablet, DISSOLVE 1 TABLET ON THE TONGUE EVERY 6 HOURS NEEDED FOR NAUSEA/ VOMITING, Disp: 56 tablet, Rfl: 2 pantoprazole (ProtoNix) 40 MG EC tablet, TAKE 1 TABLET BY MOUTH TWICE A DAY, Disp: 180 tablet, Rfl: 3 PARoxetine (Paxil) 40 MG tablet, TAKE 1 TABLET BY MOUTH EVERY DAY, Disp: 90 tablet, Rfl: 3 sucralfate (Carafate) 1 g tablet, TAKE 1 TABLET BY MOUTH EVERYDAY AT BEDTIME, Disp: 90 tablet, Rfl: 3 temazepam (Restoril) 15 MG capsule, TAKE 1 CAPSULE BY MOUTH EVERYDAY AT BEDTIME, Disp: 30 capsule, Rfl: 1 Social History: Social History Socioeconomic History Marital status: Spouse name: Not on file Number of children: Not on file Years of education: Not on file Highest education level: Not on file Occupational History Not on file Tobacco Use Smoking status: Never Passive exposure: Never Smokeless tobacco: Never Substance and Sexual Activity Alcohol use: Never Drug use: Never Sexual activity: Defer Partners: Decline to Answer Other Topics Concern Not on file Social History Narrative Not on file Social Drivers of Health Financial Resource Strain: Low Risk (01/22/2024) Overall Financial Resource Strain (CARDIA) Difficulty of Paying Living Expenses: Not very hard Food Insecurity: No Food Insecurity (01/22/2024) Hunger Vital Sign Worried About Running Out of Food in the Last Year: Never true Ran Out of Food in the Last Year: Never true Transportation Needs: No Transportation Needs (01/22/2024) PRAPARE - Transportation Lack of Transportation (Medical): No Lack of Transportation (Non-Medical): No Physical Activity: Inactive (01/22/2024) Exercise Vital Sign Days of Exercise per Week: 0 days Minutes of Exercise per Session: 0 min Stress: Stress Concern Present (01/22/2024) [employer] - Occupational Stress Questionnaire Feeling of Stress : To some extent Social Connections: Moderately Isolated (01/22/2024) Social Connection and Isolation Panel [NHANES] Frequency of Communication with Friends and Family: Three times a week Frequency of Social Gatherings with Friends and Family: Twice a week Attends Latter-Day Services: 1 to 4 times per year Active Member of Clubs or Organizations: No Attends Club or Organization Meetings: Never Marital Status: Intimate Partner Violence: Unknown (04/12/2023) [facility] [place] Safety & Environment Fear of Current or Ex-Partner: Not on file Emotionally Abused: Not on file Physically Abused: Not on file Sexually Abused: Not on file Physically or Sexually Abused: Not on file Housing Stability: Low Risk (01/22/2024) Housing Stability Vital Sign Unable to Pay for Housing in the Last Year: No Number of Times Moved in the Last Year: 0 Homeless in the Last Year: No ROS: General: denies fever, chills, fatigue, malaise OBJECTIVE LE EXAM: DERM: Elongated thick yellow crumbly nails digits 1 through 10. Negative hair growth with thin shiny atrophic skin bilaterally VASC: Positive DP and negative PT pedal pulses NEURO: 5.07 [place] monofilament test positive to digits and forefoot bilaterally 125Hz tuning fork positive to 1st MPJ bilaterally ORTHO: Positive pain on palpation to nails 1 through 10 ASSESSMENT Venous stasis bilateral feet and ankles Onychomycosis nails 1-10 Painful toenails 1-10 DM2 PLAN Discussed proper foot care with patient today. Debride nails in length and thickness digits 1 through 10 Patient educated today on proper diabetic foot care including monitoring feet daily for any signs of infection openings in the skin or irregularities to both feet. Patient had a diabetic neurological exam today to both their feet and discussed proper shoe gear. Turner Wilkins DPM documented in this encounter [facility] 11-12-2023 History of Presen t illness Narrative Associated Problem(s): CAD in umk[place] artery ([facility] [address]/HCC) No symptoms and follow with cardiology. Associated Problem(s): Type 2 diabetes mellitus with hyperglycemia, without long-term current use of insulin ([facility]) Not checking BS and due for A1C. Stick to ADA diet and limit carbs. Associated Problem(s): Primary osteoarthritis of both knees Pain stable and use norco PRN. Associated Problem(s): Primary insomnia Sleeping well with restoril and continue. Associated Problem(s): Major depressive disorder, recurrent episode, mild (HCC) (CMS/HCC) Mood stable with medication and continue. Associated Problem(s): Generalized anxiety disorder (CMS/HCC) Symptoms stable with medication and monitor. Associated Problem(s): Gastroesophageal reflux disease Symptoms controlled with medication and continue. Associated Problem(s): Fibromyalgia Pain unchanged and use norco PRN. Try to increase activity and walk regularly. Associated Problem(s): Chronic diastolic heart failure (CMS/HCC) Edema stable and continue medication. Elevate legs PRN. Follow up with cardiology. Associated Problem(s): Benign essential hypertension (CMS/HCC) BP elevated today but patient with worsening pain and usually normal. Continue to monitor PRN. Associated Problem(s): Acute UTI History suggestive UTI and treat. Take bactrim for infection. Increase water intake and cranberry juice. Use motrin or tylenol for discomfort. Images from the original note were not included. Subjective Patient ID: Elif Turner is a 78 y.o. female who presents for Follow-up (6m) and UTI. Follow up DM, HTN, fibromyalgia, depression, anxiety, insomnia, CHF, and GERD. Patient stable today. Not checking BS away from office. Tries to eat well and stick to ADA diet. Denies signs of elevated BS such as polyuria, polyphagia or polydipsia. Checking BP PRN and typically controlled. BP elevated today but increased pain. Taking medication daily and tolerating without side effects. Fibromyalgia pain unchanged. Continues to have pain all over. Pain in back, legs, arms, and neck. Increased stiffness and hard to get moving. Using norco PRN which helps. OA knees stable. Frequent popping, clicking, and grinding. Not unsteady or giving out. Stiff and sore after sit prolonged. Using norco and helps. Depression controlled with medication. Not down or sad and feels happier. Anxiety stable. Not as stressed out or overwhelmed. Not as nervous or worry as much. Not as paulson or irritable. Using xanax PRN and helps. Sleeping well with restoril. Able to fall asleep and stay asleep. Wakes up rested in am. Edema controlled with medication. Mild swelling at end of day and if on feet a lot. Edema improved in am and with elevation. GERD controlled with pepcid. Denies epigastric pain or burning and not waking up with symptoms. Concerned of UTI. C/o pain and burning with urination for several days. Increased frequency and urgency. Starting to have accidents. Strong odor and darker color. UTI Review of Systems Respiratory: Negative for cough, shortness of breath and wheezing. Cardiovascular: Negative for chest pain and palpitations. Gastrointestinal: Negative for abdominal pain, diarrhea, nausea and vomiting. Genitourinary: Negative for dysuria. Objective Physical Exam Constitutional: General: She is not in acute distress. Appearance: Normal appearance. HENT: Head: Normocephalic. Right Ear: Tympanic membrane normal. Left Ear: Tympanic membrane normal. Eyes: Extraocular Movements: Extraocular movements intact. Pupils: Pupils are equal, round, and reactive to light. Cardiovascular: Rate and Rhythm: Normal rate and regular rhythm. Heart sounds: No murmur heard. No friction rub. No gallop. Pulmonary: Effort: Pulmonary effort is normal. Breath sounds: Normal breath sounds. No wheezing, rhonchi or rales. Abdominal: General: Bowel sounds are normal. There is no distension. Palpations: Abdomen is soft. Tenderness: There is no abdominal tenderness. There is no guarding or rebound. Musculoskeletal: Cervical back: Neck supple. Right lower leg: No edema. Left lower leg: No edema. Neurological: Mental Status: She is alert. Assessment/Plan Problem List Items Addressed This Visit Dyslipidemia (CMS/HCC) Relevant Orders Lipid panel Chronic diastolic heart failure (CMS/HCC) Edema stable and continue medication. Elevate legs PRN. Follow up with cardiology. Relevant Medications furosemide (Lasix) 20 MG tablet Fibromyalgia Pain unchanged and use norco PRN. Try to increase activity and walk regularly. Generalized anxiety disorder (CMS/HCC) Symptoms stable with medication and monitor. Gastroesophageal reflux disease Symptoms controlled with medication and continue. Major depressive disorder, recurrent episode, mild (HCC) (CMS/HCC) Mood stable with medication and continue. Primary osteoarthritis of both knees Pain stable and use norco PRN. Relevant Medications HYDROcodone-acetaminophen ([place]) 5-325 MG tablet Stage 3b chronic kidney disease (CKD) (CMS/HCC) Relevant Orders Basic metabolic panel Type 2 diabetes mellitus with hyperglycemia, without long-term current use of insulin (CMS/HCC) - Primary Not checking BS and due for A1C. Stick to ADA diet and limit carbs. Relevant Orders Albumin, urine, random Hemoglobin A1c Benign essential hypertension (CMS/HCC) BP elevated today but patient with worsening pain and usually normal. Continue to monitor PRN. Primary insomnia Sleeping well with restoril and continue. Encounter for long-term (current) use of medications Relevant Orders CBC and differential Hepatic function panel Obesity (BMI 30-39.9) Relevant Orders TSH Acute UTI History suggestive UTI and treat. Take bactrim for infection. Increase water intake and cranberry juice. Use motrin or tylenol for discomfort. Relevant Medications sulfamethoxazole-trimethoprim (Bactrim DS) 800-160 MG per tablet Other Visit Diagnoses Skin candidiasis Relevant Medications nystatin (Mycostatin) [id number] UNIT/GM powder documented in this encounter [facility] 08-20-2023 Note OR Cardiology - [facility] Subjective Elif Turner is a 78 [...] Problem List Diagnosis Coronary artery disease involving [place] coronary artery of [place] heart without angina pectoris CKD stage 4 [...] dehydration and JAKI, treated by hydration at [facility] and did well. Since then she has been feeling well and has been eating and drinking well and no longer takes trazodone and lasix is 40 mg daily. No chest pain and no dyspnea. Her Cr on 07/09/2017 was 1.96 and down to 1.7 on 07/10/2017. Update 11/16/2017: She is seen in follow up. Most recently she was admitted to [facility] with decompensated diastolic heart failure. She [...] 11/05/2017: Cr 1.55; BUN 55. NT-proBNP 4184 BMP 11/12/2017: BUN 42, Cr 1.47, K 4.5. Update 01/04/2018: She is seen in follow up. Last visit I saw her after her admission to [facility] with heart failure and she developed [...] Most recently she was admitted to the [facility] and transferred to [facility] due to decompensated diastolic heart failure in the setting of UTI. She underwent right heart catheterization that showed significantly elevated filling pressures and pulmonary hypertension. She underwent diuresis. Her renal function at discharge (more content not included)... [facility] 01-31-2023 Note Cardiovascular Medic ine [facility] SUBJECTIVE Chief Complaint Patient presents with Congestive [...] with bleeding, syncope, orthopnea, PND, weight gain. ----- Last HPI per Dr. Lucio: Ms. Turner [...] sinus rhythm at 94 bpm, old inferior OK, comparable to prior ECG. Visit of 07/18/2017: At last visit of 06/20/2017 I had increased lasix from 60 to 80 mg daily. After that she was not eating or drinking after she was started on trazodone. She developed dehydration and JAKI, treated by hydration at [facility] and did well. Since then she has been feeling well and has been eating and drinking well and no longer takes trazodone and lasix is 40 mg daily. No chest pain and no dyspnea. Her Cr on 07/09/2017 was 1.96 and down to 1.7 on 07/10/2017. Update 11/16/2017: She is seen in follow up. Most recently she was admitted to [facility] with decompensated diastolic heart failure. She was diuresed, went into JAKI with Cr 2.0 but her renal function is improving. She was changed from lasix to bumex. She is very nervous. She reports that she was getting chest discomfort during the admission but is ok now. Echocardiogram 11/02/2017: Normal ventricular systolic function. Moderate diastolic dysfunction. Severely elevated right sided pressures. [facility] 11/05/2017: Cr 1.55; BUN 55. NT-proBNP 4184 [facility] 11/12/2017: BUN 42, Cr 1.47, K 4.5. Update 01/04/2018: She is seen in follow up. Last visit I saw her after her admission to [facility] with heart failure and she developed [...] Most recently she was admitted to the [facility] and transferred to [facility] due to decompensated diastolic heart failure in [...] 1.57. BUN 56. (more content not included)... [facility] 01-31-2023 Note Patient here for 6 m [...] All other systems reviewed and are negative. [facility] 08-29-2022 Note SUBJECTIVE: Chief complaint: Consultation for [...] History: Diagnosis Date CHF (congestive heart failure) ([facility] [address]) Chronic kidney disease Coronary artery disease Diabetes mellitus ([facility] [address]) H/O total hysterectomy Heart attack ([facility] [address]) Hyperlipidemia Hypertension Past Surgical History: Procedure [...] and at bedtime., Disp: , Rfl: HYDROcodone-acetaminophen ([place]) 5-325 mg tablet, Take 1 tablet by [...] Take 100 mg (more content not included)... [facility] 06-25-2021 Progress note Note Date/Time June 25, 2021 11:18am [facility] [address] [place] [address] Cardiology Progress Note Signed Patient: Elif Turner MR#: [id number] : 1945 Acct:[id number] Age/Sex: 75 / F Adm Date: 2 Loc: Room: [address] [place] [address] Type : ADM IN Attending Dr: Rusty [...] previous stents approximately 7 years ago in [place] details of which are unknown She really routinely follows with cardiology and saw her hospital medicine director 3 months ago with no symptoms Comorbidities are noted for diabetes, obesity, hyperlipidemia, chronic kidney disease and essential hypertension Mrs. Turner is doing well today status post PCI to the RCA (FINAL INSPECTOR) done per Dr. Bolivar yesterday. 2 drug-eluting [...] MPV Neut % (Auto) Lymph % (Auto) [place] % (Auto) Eos % (Auto) Baso % (Auto) Neut # (Auto) Lymph # (Auto) [place] # (Auto) Eos # (Auto) Baso # [...] % (Auto) 90.9 Lymph % (Auto) 4.3 [place]y % (Auto) 4.5 Eos % (Auto) 0.0 Baso % (Auto) 0.3 Neut # (Auto) 9.6 H Lymph # (Auto) 0.4 L Kenedy # (Auto) 0.5 Eos # (Auto) 0.0 Baso # (Auto) 0.0 Nucleated RBC % (auto) 0.0 PT INR APTT POC Glucose 322 294 POC Glucose Comment Troponin I High Sens 06/25/21 06/25/21 06/25/21 05:24 05:24 07:51 Corrected WBC Uncorrected WBC Count RBC Hgb Hct MCV MCH MCHC RDW Plt Count MPV Neut % (Auto) Lymph % (Auto) K[place]y % (Auto) Eos % (Auto) Baso % (Auto) Neut # (Auto) Lymph # (Auto) Kenedy # (Auto) Eos # (Auto) Baso # [...] days. 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 Code(s): E11.9 - Type 2 diabetes mellitus without complications Status: Acute Plan: Okay to resume oral metformin in 24 hours. Aggressive glycemic control and control of serum insulin levels is recommended. 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 Within the construct of phase 2 monitored cardiac rehabilitation, a minimum 10% total body weight loss is strongly recommended Plan Okay for discharge to home today. Patient may follow-up with her primary hospital medicine director in [place] within 10 days. Again, as mentioned above, enrollment in phase2 monitored cardiac rehabilitation is strongly recommended Time spent with patient Time Spent With Patient (min): 30 Documented By: Andrea Marinelli MD 06/25/21 1116 Signed By: <Electronically signed by Andrea Marinelli MD> 06/25/21 1127 [facility] Work Phone: 1(226) 216-593105-07-2022 History of Present illness Narrative* Andreas Freitas MD - 06/25/2021 10:50 AM EDT Images from the original note were not included. EMERGENCY TRIAGE, TREAT AND TRANSPORT (ET3) DOCUMENTATION OF TELEHEALTH VISIT Date / Time: 06/23/20211929 Name: Elif Turner : 1945 SSN: (Not on file) EMS Agency: [facility] [x] Verbal consent obtained [] [...] vomiting, fever. She does have nausea. She [id number] due to the chest pain, but the [...] by: Andreas Freitas MD documented in this [id number] Progress note Author Rusty Amor [facility] June 24, 2021 4:36pm Note Date/Time June 24, 2021 3:50pm [facility] [address] [place] [address] Hospitalist Progress Note Signed Patient: Elif Turner MR#: [id number] : 1945 Acct:[id number] Age/Sex: 75 / F Adm Date: 2 Loc: Room: [address] [place] [address] Type : ADM IN Attending Dr: Rusty [...] of care and confirmed it with the resident/student/BOTTLER. Patient was seen and examined at bedside [...] Dextrose-0.45 % Nacl IV 06/24/21 16:59 .Q10H BOYD Nitroglycerin/Dextrose 50 mg in 250 mls @ 1.5 mls/hr 06/24/21 15:30 Nitroglycerin 50 Mg-*D5w* IV 06/24/22 15:29 .Q24H [facility] Protocol 5 MCG/MIN Insulin Aspart 0 units 06/24/21 08:00 06/24/21 12:10 Insulin Aspart 300 Units/3 Ml Insuln.Pen SUBCUT 06/24/22 07:59 Not Given TID.WM.HS [facility] Protocol Insulin Detemir 10 units 06/24/21 22:00 Insulin Detemir 300 Units/3 Ml Insuln.Pen SUBCUT 06/24/22 21:59 QHS [facility] Lidocaine HCl 10 ml 06/24/21 13:52 [...] Montelukast 10 Mg Tablet PO 06/24/22 21:59 HS [facility] Nitroglycerin 0.4 mg 06/24/21 05:27 Nitroglycerin 0.4 Mg Tab.Subl SUBLINGUAL 06/24/22 05:26 Q5M PRN Chest Pain Omeprazole 20 mg 06/24/21 09:00 06/24/21 08:54 Omeprazole 20 Mg Capsule.Dr PO 06/24/22 08:59 20 mg BID BOYD Administration Paroxetine HCl 40 mg 06/24/21 09:00 06/24/21 08:55 Paroxetine 20 Mg Tablet PO 06/24/22 08:59 40 mg DAILY [facility] Administration Potassium Chloride 40 meq 06/24/21 10:21 Potassium Chloride Er 20 Meq Tab.Er.Prt PO STAT PRN Hypokalemia Promethazine HCl 12.5 mg 06/24/21 13:52 Promethazine 25 Mg/Ml Vial IV-PUSH ONCE PRN Sheath Removal Temazepam 30 mg 06/24/21 22:00 Temazepam 15 Mg Capsule PO 06/24/22 21:59 HS [facility] Ticagrelor 90 mg 06/24/21 23:00 Ticagrelor 90 Mg Tablet PO 05/06/23 22:59 BID [facility] A&P - Hospitalist Assessment/Plan (1) NSTEMI (non-ST [...] CKD ?BUN 32 and creatinine 2.05 at [facility] yesterday Continue home medications. PT/OT Full code Rapid COVID-negative at [facility] Documented By: Nick Carr DO, RES 06/24/21 154 7 Signed By: <Electronically signed by DO JOSE DE JESUS Carr> 06/24/21 1633 <Electronically signed by Rusty Amor MD> 06/24/21 1636 [facility] Work Phone: [phone]) [phone] Consult note Author [facility] [place] [facility] 2021 2:02pm Note Date/Time June 24, 2021 12:55p m [facility] [address] [place] [address] Cardiology Consult Note Signed Patient: Elif Turner MR#: [id number] : 1945 Acct:[id number] Age/Sex: 75 / F Adm Date: 2 Loc: Room: [address] [place] [address] Type : ADM IN Attending Dr: Rusty Amor MD Copies to: MD Amador Winston MD W Scott Sheldon, DO~ Cardiology HPI History of Present Illness Consult Date: 06/24/21 Reason for Consult: Non-ST elevation [place] HPI: Ms. Turner is a 75 year [...] previous stents approximately 7 years ago in [place] details of which are unknown She really routinely follows with cardiology and saw her hospital medicine director 3 months ago with no symptoms Comorbidities [...] x10E3/uL Lymph # (Auto) 1.8 (1.00-4.8) x10E3/uL [place] # (Auto) 0.6 (0.0-0.8) x10E3/uL Eos # [...] Code(s): I25.10 - Atherosclerotic heart disease of [place] coronary artery without angina pectoris (4) Diabetes: Code(s): E11.9 - Type 2 diabetes mellitus without complications (5) HTN (hypertension): Code(s): I10 - Essential (primary) hypertension Documented By: Gen Bolivar DO 06/24/21 1248 Signed By: <Electronically signed by Gen Bolivar DO> 06/24/21 1406 [facility] Work Phone: 1(583) 120-925605-06-2022 Procedure [facility]05-06-2022 Procedure [facility]2022 History and physical note Author Xander Nam [facility] June 24, 2021 6:14am Note Date/Time June 24, 2021 5:14am [facility] [address] [place] [address] Hospitalist H&P Signed Patient: Elif Turner MR#: [id number] : 1945 Acct:[id number] Age/Sex: 75 / F Adm Date: 2 Loc: Room: [address] [place] [address] Type : ADM IN Attending Dr: Xander [...] type II, fibromyalgia, CKD who presented to [facility] yesterdaywith intermittent chest pain that started in the afternoon while she was watching TV with associated shortness of breath. She described this pain as pressure that involved her left chest as well as left breast and axilla. She presented to the [facility] emergency department and blood pressure was 160/71 [...] 12 units/kg/h. She was transferred to [facility] for cardiac care for NSTEMI. The patient denied fever/chills, N/V, constipation/diarrhea. She does have history of chronic headaches however notes worsening of headache since yesterday. She does take Lasix as well with as needed for pedal edema. On evaluation at [facility], patient continues to endorse resting chest pain however diminished since initial presentation at [facility]. Per RN she was saturating 94% on [...] yesterday afternoon. ?Chest x-ray unremarkable ?EKG at [facility] normal sinus rhythm with no acute ischemia ?At [facility] troponin 162.6 with repeat 658.9. Repeat at [facility] ordered. ?Patient received bolus porcine heparin at 60 units/kg at [facility] with maintenance at 12 units/kg/h. Maintenance will be continued here. ?Coreg initiated at 12.5 mg twice daily. We will hold amlodipine pending cardiology recommendation. ?Continue losartan. ? Hold amlodipine and lasix pending cardiology consult. ?Cardiology consult ?Morphine for severe pain. Target pulse ox greater than 90%. Nitro for worsening chest pain. Received 324 mg aspirin at [facility]. 2. Coronary artery disease ?Status post 2 stents 5 and 7 years ago respectively per patient ?Continue atorvastatin 40 mg and 81 mg aspirin 3. Diabetes ?Hold home metformin and glipizide ?Initiate basal detemir 10 units with sliding scale coverage 4. CKD ?BUN 32 and creatinine 2.05 at [facility] yesterday Continue home medications. PT/OT Full code Rapid COVID-negative at [facility] Attending Provider Attestation Attending Physician Attestation: I personally saw this patient on the day of the encounter, reviewed the history,performed the cruz elements of the exam, formulated the plan of care and confirmed the resident's/recording studio internship/medical student's dictation/written note. Documented By: Marlon Leon DO, RES 06/24/21 050 4 Signed By: <Electronically signed by DO JOSE DE JESUS Leon> 06/24/21 0537 <Electronically signed by Xander Ortiz MD> 06/24/21 0614 [facility] Work Phone: 1(138) 504-458011-30-2021 NoteChief Complaint consultation for epigastric pain HPI [...] Flonase 0.05 mg/inh nasa (more content not included)...[facility] CampusComment on above:Result Comment: Electronically Signed By: ANGEL BARRIOS, Neel Gamboa\Date and Time Signed: 01/18/21 20:28 ESTDischarge summary Author Rusty Amor [facility] June 25, 2021 1:30pm Note Date/Time June 25, 2021 1:30pm [facility] [address] [place] [address] Discharge Summary Signed Patient: Elif Turner MR#: [id number] : 1945 Acct:[id number] Age/Sex: 75 / F Adm Date: 2 Loc: Room: [address] [place] [address]: Rusty Amor MD Copies to: [...] She presented to the emergency department of [facility] on June 24, complaining of chest discomfort. Her troponins were abnormal. She was transferred to our hospital with a diagnosis of non-STEMI. She was taken to the [facility] on June 25, where she underwent coronary [...] W Domingo Bolivar DO s CL PCI FINAL INSPECTOR 1st Vessel RCA BAMBI - W Domingo Bolivar DO Diagnostic Studies Completed and Pending Studies Pending studies at discharge: 06/24/21 04:49 XR chest 1V portable Stat 05/08/22 05:00 Prothrombin Time INR IN AM Complete [...] % (Auto) 90.9, Lymph % (Auto) 4.3, [place] % (Auto) 4.5, Eos % (Auto) 0.0, Baso % (Auto) 0.3, Neut # (Auto) 9.6 H, Lymph # (Auto) 0.4 L, [place] # (Auto)0.5, Eos # (Auto) 0.0, Baso [...] doctor or pharmacist, without first calling the hospital medicine director who implanted the stent. If you require [...] weight lifting, stair steppers, etc. until the hospital medicine director approves these activities. Check with the hospital medicine director on your first follow-up visit. CALL YOUR PHYSICIAN at [phone]: -If bleeding should occur from the catheter insertion site- apply pressure to the site then immediately call us. -Report any fever, redness, drainage, increased swelling, or firmness at the catheter insertion site. Some bruising or slight swelling may be present at thetime of discharge. -Should arm or leg become cold, numb, white, or blue, contact the hospital medicine director immediately. -IF you should experience episodes of [...] is recommended. Please call Central Scheduling at [phone] to schedule your appointment.] The attending hospital medicine director or [facility] nurse clinician should provide you with specific instructions regarding activity, diet, medications, and further follow up for you. Follow the medication instructions provided on your discharge. If the dosages and instructions on this sheet differ from the dosage and instructions on the bottle, follow the instructions on the bottle. [facility] is not responsible for incorrect prescription [...] Sunday to schedule follow- up with your Swager Operator. ) Documented By: Rusty Amor MD 06/25/21 1326 Signed By: <Electronically signed by Rusty Amor MD> 06/25/21 1330 [facility] Work Phone: Evaluation note* Diagnosis Chest pain, unspecified type- Primary PND (paroxysmal nocturnal dyspnea) Other dyspnea and respiratory abnormality [facility] Diagnosis Onset Date Resolution Status CAD (coronary artery disease) acute Chronic kidney disease acute Depression acute Diabetes acute Fibromyalgia acute GERD (gastroesophageal reflux disease) acute HTN (hypertension) acute NSTEMI (non-ST elevated myocardial infarction) acute [facility] Work Phone: Evaluation note* Diagnosis Type 2 diabetes mellitus with hyperglycemia, without long-term current use of insulin (CMS/HCC)- Primary Benign essential hypertension (CMS/HCC) Essential hypertension, benign Primary osteoarthritis of both knees Fibromyalgia Unspecified myalgia and myositis Major depressive disorder, recurrent episode, mild (HCC) ([facility]) Major depressive disorder, recurrent episode, mild Generalized anxiety disorder ([facility]) Generalized anxiety disorder Chronic diastolic heart failure ([facility]) Chronic diastolic heart failure Gastroesophageal reflux disease without esophagitis Esophageal reflux Encounter for long-term (current) use of medications Encounter for long-term (current) use of other medications Dyslipidemia ([facility]) Other and unspecified hyperlipidemia Vitamin D deficiency Type 2 diabetes mellitus with hyperglycemia, without long-term current use of insulin ([facility])- Primary Benign essential hypertension ([facility]) Essential hypertension, benign Chronic diastolic heart failure ([facility]) Chronic diastolic heart failure Major depressive disorder, recurrent episode, mild (HCC) ([facility]) Major depressive disorder, recurrent episode, mild Generalized anxiety disorder ([facility]) Generalized anxiety disorder Fibromyalgia Unspecified myalgia and myositis Gastroesophageal reflux disease without esophagitis Esophageal reflux Primary insomnia Persistent disorder of initiating or maintaining sleep Primary osteoarthritis of both knees Stage 3b chronic kidney disease (CKD) ([facility]) Dyslipidemia ([facility]) Other and unspecified hyperlipidemia Encounter for long-term (current) use of medications Encounter for long-term (current) use of other medications Obesity (BMI 30-39.9) Acute UTI Urinary tract infection, site not specified Skin candidiasis Candidiasis of skin and nails CAD in [place] artery ([facility]) Type 2 diabetes mellitus with diabetic chronic kidney disease ([facility]) Primary insomnia Persistent disorder of initiating or maintaining sleep documented in this encounter [facility]* Diagnosis Type 2 diabetes mellitus with hyperglycemia, without long-term current use of insulin ([facility])- Primary Benign essential hypertension ([facility]) Essential hypertension, benign Primary osteoarthritis of both knees Fibromyalgia Unspecified myalgia and myositis Major depressive disorder, recurrent episode, mild (HCC) ([facility]) Major depressive disorder, recurrent episode, mild Generalized anxiety disorder ([facility]) Generalized anxiety disorder Chronic diastolic heart failure ([facility]) Chronic diastolic heart failure Gastroesophageal reflux disease without esophagitis Esophageal reflux Encounter for long-term (current) use of medications Encounter for long-term (current) use of other medications Dyslipidemia ([facility]) Other and unspecified hyperlipidemia Vitamin D deficiency Type 2 diabetes mellitus with hyperglycemia, without long-term current use of insulin ([facility])- Primary Benign essential hypertension ([facility]) Essential hypertension, benign Chronic diastolic heart failure ([facility]) Chronic diastolic heart failure Major depressive disorder, recurrent episode, mild (HCC) ([facility]) Major depressive disorder, recurrent episode, mild Generalized anxiety disorder ([facility]) Generalized anxiety disorder Fibromyalgia Unspecified myalgia and myositis Gastroesophageal reflux disease without esophagitis Esophageal reflux Primary insomnia Persistent disorder of initiating or maintaining sleep Primary osteoarthritis of both knees Stage 3b chronic kidney disease (CKD) ([facility]) Dyslipidemia ([facility]) Other and unspecified hyperlipidemia Encounter for long-term (current) use of medications Encounter for long-term (current) use of other medications Obesity (BMI 30-39.9) Acute UTI Urinary tract infection, site not specified Skin candidiasis Candidiasis of skin and nails CAD in [place] artery ([facility]) Type 2 diabetes mellitus with diabetic chronic kidney disease ([facility]) Primary osteoarthritis of both knees documented in this encounter [facility]* Diagnosis Type 2 diabetes mellitus with hyperglycemia, without long-term current use of insulin ([facility])- Primary Benign essential hypertension ([facility]) Essential hypertension, benign Chronic diastolic heart failure ([facility]) Chronic diastolic heart failure Major depressive disorder, recurrent episode, mild (HCC) ([facility]) Major depressive disorder, recurrent episode, mild Generalized anxiety disorder ([facility]) Generalized anxiety disorder Fibromyalgia Unspecified myalgia and myositis Gastroesophageal reflux disease without esophagitis Esophageal reflux Primary insomnia Persistent disorder of initiating or maintaining sleep Primary osteoarthritis of both knees Stage 3b chronic kidney disease (CKD) ([facility]) Dyslipidemia ([facility]) Other and unspecified hyperlipidemia Encounter for long-term (current) use of medications Encounter for long-term (current) use of other medications Obesity (BMI 30-39.9) Acute UTI Urinary tract infection, site not specified Skin candidiasis Candidiasis of skin and nails CAD in [place] artery ([facility]) Type 2 diabetes mellitus with diabetic chronic kidney disease ([facility]) documented in this encounter [facility]* Diagnosis Type 2 diabetes mellitus with hyperglycemia, without long-term current use of insulin ([facility])- Primary Benign essential hypertension ([facility]) Essential hypertension, benign Primary osteoarthritis of both knees Fibromyalgia Unspecified myalgia and myositis Major depressive disorder, recurrent episode, mild (HCC) ([facility]) Major depressive disorder, recurrent episode, mild Generalized anxiety disorder ([facility] Generalized anxiety disorder Chronic diastolic heart failure ([facility]) Chronic diastolic heart failure Gastroesophageal reflux disease without esophagitis Esophageal reflux Encounter for long-term (current) use of medications Encounter for long-term (current) use of other medications Dyslipidemia ([facility]) Other and unspecified hyperlipidemia Vitamin D deficiency Type 2 diabetes mellitus with hyperglycemia, without long-term current use of insulin ([facility])- Primary Benign essential hypertension ([facility]) Essential hypertension, benign Chronic diastolic heart failure ([facility]) Chronic diastolic heart failure Major depressive disorder, recurrent episode, mild (HCC) ([facility]) Major depressive disorder, recurrent episode, mild Generalized anxiety disorder ([facility]) Generalized anxiety disorder Fibromyalgia Unspecified myalgia and myositis Gastroesophageal reflux disease without esophagitis Esophageal reflux Primary insomnia Persistent disorder of initiating or maintaining sleep Primary osteoarthritis of both knees Stage 3b chronic kidney disease (CKD) ([facility]) Dyslipidemia (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) Essential hypertension, benign Primary osteoarthritis of both knees Fibromyalgia Unspecified myalgia and myositis Major depressive disorder, recurrent episode, mild (HCC) ([facility]) Major depressive disorder, recurrent episode, mild Generalized anxiety disorder ([facility]) Generalized anxiety disorder Chronic diastolic heart failure ([facility]) Chronic diastolic heart failure Gastroesophageal reflux disease without esophagitis Esophageal reflux Encounter for long-term (current) use of medications Encounter for long-term (current) use of other medications Dyslipidemia ([facility]) Other and unspecified hyperlipidemia Vitamin D deficiency Type 2 diabetes mellitus with hyperglycemia, without long-term current use of insulin ([facility])- Primary Benign essential hypertension ([facility]) Essential hypertension, benign Chronic diastolic heart failure ([facility]/HCC) Chronic diastolic heart failure Major depressive disorder, recurrent episode, mild (HCC) ([facility]) Major depressive disorder, recurrent episode, mild Generalized anxiety disorder ([facility]) Generalized anxiety disorder Fibromyalgia Unspecified myalgia and myositis Gastroesophageal reflux disease without esophagitis Esophageal reflux Primary insomnia Persistent disorder of initiating or maintaining sleep Primary osteoarthritis of both knees Stage 3b chronic kidney disease (CKD) ([facility]) Dyslipidemia ([facility]) Other and unspecified hyperlipidemia Encounter for long-term (current) use of medications Encounter for long-term (current) use of other medications Obesity (BMI 30-39.9) Acute UTI Urinary tract infection, site not specified Skin candidiasis Candidiasis of skin and nails CAD in [place] artery ([facility]) Type 2 diabetes mellitus with diabetic chronic kidney disease ([facility]) Primary osteoarthritis of both knees documented in this encounter [facility]* Diagnosis Type 2 diabetes mellitus with hyperglycemia, without long-term current use of insulin ([facility])- Primary Benign essential hypertension ([facility]) Essential hypertension, benign Primary osteoarthritis of both knees Fibromyalgia Unspecified myalgia and myositis Major depressive disorder, recurrent episode, mild (HCC) ([facility]) Major depressive disorder, recurrent episode, mild Generalized anxiety disorder ([facility]) Generalized anxiety disorder Chronic diastolic heart failure ([facility]) Chronic diastolic heart failure Gastroesophageal reflux disease without esophagitis Esophageal reflux Encounter for long-term (current) use of medications Encounter for long-term (current) use of other medications Dyslipidemia ([facility]) Other and unspecified hyperlipidemia Vitamin D deficiency Type 2 diabetes mellitus with hyperglycemia, without long-term current use of insulin ([facility])- Primary Benign essential hypertension ([facility]) Essential hypertension, benign Chronic diastolic heart failure ([facility]) Chronic diastolic heart failure Major depressive disorder, recurrent episode, mild (HCC) ([facility]) Major depressive disorder, recurrent episode, mild Generalized anxiety disorder ([facility]) Generalized anxiety disorder Fibromyalgia Unspecified myalgia and myositis Gastroesophageal reflux disease without esophagitis Esophageal reflux Primary insomnia Persistent disorder of initiating or maintaining sleep Primary osteoarthritis of both knees Stage 3b chronic kidney disease (CKD) ([facility]) Dyslipidemia ([facility]) Other and unspecified hyperlipidemia Encounter for long-term (current) use of medications Encounter for long-term (current) use of other medications Obesity (BMI 30-39.9) Acute UTI Urinary tract infection, site not specified Skin candidiasis Candidiasis of skin and nails CAD in [place] artery ([facility]) Type 2 diabetes mellitus with diabetic chronic kidney disease ([facility]) Left elbow pain- Primary Pain in joint, upper arm Type 2 diabetes mellitus with hyperglycemia, without long-term current use of insulin ([facility]) Benign essential hypertension ([facility]) Essential hypertension, benign Chronic diastolic heart failure ([facility]) Chronic diastolic heart failure Encounter for long-term (current) use of medications Encounter for long-term (current) use of other medications Primary osteoarthritis of both knees Stage 3b chronic kidney disease (CKD) ([facility]) Dyslipidemia ([facility]) Other and unspecified hyperlipidemia Class 1 obesity due to excess calories with serious comorbidity and body mass index (BMI) of 33.0 to 33.9 in adult Type 2 diabetes mellitus with diabetic chronic kidney disease ([facility]) documented in this encounter [facility] HealthcareEvaluation note* Diagnosis Type 2 diabetes mellitus with hyperglycemia, without long-term current use of insulin ([facility])- Primary Benign essential hypertension ([facility]) Essential hypertension, benign Primary osteoarthritis of both knees Fibromyalgia Unspecified myalgia and myositis Major depressive disorder, recurrent episode, mild (HCC) ([facility]) Major depressive disorder, recurrent episode, mild Generalized anxiety disorder ([facility]) Generalized anxiety disorder Chronic diastolic heart failure ([facility]) Chronic diastolic heart failure Gastroesophageal reflux disease without esophagitis Esophageal reflux Encounter for long-term (current) use of medications Encounter for long-term (current) use of other medications Dyslipidemia ([facility]) Other and unspecified hyperlipidemia Vitamin D deficiency Type 2 diabetes mellitus with hyperglycemia, without long-term current use of insulin ([facility])- Primary Benign essential hypertension ([facility]) Essential hypertension, benign Chronic diastolic heart failure ([facility]) Chronic diastolic heart failure Major depressive disorder, recurrent episode, mild (HCC) ([facility]) Major depressive disorder, recurrent episode, mild Generalized anxiety disorder ([facility]) Generalized anxiety disorder Fibromyalgia Unspecified myalgia and myositis Gastroesophageal reflux disease without esophagitis Esophageal reflux Primary insomnia Persistent disorder of initiating or maintaining sleep Primary osteoarthritis of both knees Stage 3b chronic kidney disease (CKD) ([facility]) Dyslipidemia ([facility]) Other and unspecified hyperlipidemia Encounter for long-term (current) use of medications Encounter for long-term (current) use of other medications Obesity (BMI 30-39.9) Acute UTI Urinary tract infection, site not specified Skin candidiasis Candidiasis of skin and nails CAD in [place] artery ([facility]) Type 2 diabetes mellitus with diabetic chronic kidney disease ([facility]) Left elbow pain- Primary Pain in joint, upper arm Type 2 diabetes mellitus with hyperglycemia, without long-term current use of insulin ([facility]) Benign essential hypertension ([facility]) Essential hypertension, benign Chronic diastolic heart failure ([facility]) Chronic diastolic heart failure Encounter for long-term (current) use of medications Encounter for long-term (current) use of other medications Primary osteoarthritis of both knees Stage 3b chronic kidney disease (CKD) ([facility]) Dyslipidemia ([facility]) Other and unspecified hyperlipidemia Class 1 obesity due to excess calories with serious comorbidity and body mass index (BMI) of 33.0 to 33.9 in adult Type 2 diabetes mellitus with diabetic chronic kidney disease ([facility]) Primary insomnia Persistent disorder of initiating or maintaining sleep [facility] Discharge instructionsAmbulatory Orders* Initiate Home Health Time [...] doctor or pharmacist, without first calling the hospital medicine director who implanted the stent. If you require [...] weight lifting, stair steppers, etc. until the hospital medicine director approves these activities. Check with the hospital medicine director on your first follow-up visit. CALL YOUR PHYSICIAN at [phone]: -If bleeding should occur from the catheter insertion site- apply pressure to the site then immediately call us. -Report any fever, redness, drainage, increased swelling, or firmness at the catheter insertion site. Some bruising or slight swelling may be present at the time of discharge. -Should arm or leg become cold, numb, white, or blue, contact the hospital medicine director immediately. -IF you should experience episodes of [...] is recommended. Please call Central Scheduling at [phone] to schedule your appointment.] The attending hospital medicine director or [facility] nurse clinician should provide you with specific instructions regarding activity, diet, medications, and further follow up for you. Follow the medication instructions provided on your discharge. If the dosages and instructions on this sheet differ from the dosage and instructions on the bottle, follow the instructions on the bottle. [facility] is not responsible for incorrect prescription information provided by the patient during their visit. Do not stop your medications without consulting your health care provider. Please take the list with you to your next doctor's appointment. Home Health to manage care: - Full code - PT/OT eval and treat - [facility] Work Phone: Summary Purpose Family History Relationship Condition Age at Onset Recorded Date/T tamiko Not Specified Diabetes mellitus Unknown Pulmonary emphysema Unknown father Cerebrovascular accident (CVA) Unknown Advance Directives Advance Directive Response Recorded Date/ Time Advance Directives No June 24, 2021 1:18am Chief Complaint and Reason for Visit Chief Complaint Non Stemi Reason for Visit CAD (coronary artery disease) Chronic kidney disease Depression Diabetes Fibromyalgia GERD (gastroesophageal reflux disease) HTN (hypertension) NSTEMI (non-ST elevated myocardial infarction) Additional Source Comments INFORMATION SOURCE (unrecogn ized section and content) DATE CREATED AUTHOR 09/19/2017 [facility] DATE CREATED AUTHOR AUTHOR'S ORGANIZ ATION 11/23/2019 [facility] DATE CREATED AUTHOR AUTHOR'S ORGANIZ ATION 05/07/2021 [facility] DATE CREATED AUTHOR AUTHOR'S ORGANIZ ATION 07/30/2021 [facility] DATE CREATED AUTHOR AUTHOR'S ORGANIZ ATION 03/25/2022 [facility] DATE CREATED AUTHOR AUTHOR'S ORGANIZ ATION 07/05/2022 [facility] DATE CREATED AUTHOR AUTHOR'S ORGANIZ ATION 08/21/2023 [facility] DATE CREATED AUTHOR AUTHOR'S ORGANIZ ATION 03/05/2024 [facility] EPIC DATE CREATED AUTHOR AUTHOR'S ORGANIZ ATION 03/21/2024 [facility] Reason for Visit (unrecogniz ed section and content) Reason Comments Chest symptoms/complaints Reason Comments Med Refill Reason Comments Follow-up 6m UTI Reason Comments DM Foot Care Dm nail care Reason Comments Follow-up Tb er f/up 02/23/24 K[facility] Care Teams (unrecognized sec tion and content) [...] Amador Abdalla MD Primary Care Provider Active Area Manager Relationship Specialty Start Date End Date Amador Abdalla MD [address] [place] [phone] PCP - General Family Medicine 04/25/23 Area Manager Relationship Specialty Start Date End Date Amador Abdalla MD [address] [place] [phone] PCP - General Family Medicine 04/25/23 Area Manager Relationship Specialty Start Date End Date Amador Abdalla MD [address] [place] [phone] PCP - General Family Medicine 04/25/23 Area Manager Relationship Specialty Start Date End Date Amador Abdalla MD [address] [place] [phone] PCP - General Family Medicine 04/25/23 Area Manager Relationship Specialty Start Date End Date Amador Abdalla MD [address] [place] [phone] PCP - General Family Medicine 04/25/23 Area Manager Relationship Specialty Start Date End Date Amador Abdalla MD [address] [place] [phone] PCP - General Family Medicine 04/25/23 Area Manager Relationship Specialty Start Date End Date Amador Abdalla MD [address] [place] [phone] PCP - General Family Medicine 04/25/23 Area Manager Relationship Specialty Start Date End Date Amador Abdalla MD [address] [place] [phone] PCP - General Family Medicine 04/25/23 Carmina Garcia, [facility] Staff Cytotechnologist Family Medicine 02/28/24 Miguel Blank MA Family Medicine 02/28/24 Area Manager Relationship Specialty Start Date End Date Amador Abdalla MD [address] [place] [phone] PCP - General Family Medicine 04/25/23 Carmina Garcia, [facility] Staff Cytotechnologist Family Medicine 02/28/24 Miguel Blank MA Family Medicine 02/28/24 Area Manager Relationship Specialty Start Date End Date Amador Abdalla MD [address] [place] [phone] PCP - General Family Medicine 04/25/23 Carmina Garcia, [facility] Staff Cytotechnologist Family Medicine 02/28/24 Miguel Blank MA Family Medicine 02/28/24 Area Manager Relationship Specialty Start Date End Date Amador Abdalla MD [address] [place] [phone] PCP - General Family Medicine 04/25/23 Carmina Garcia, [facility] Staff Cytotechnologist Family Medicine 02/28/24 Miguel Blank MA Family Medicine 02/28/24 Area Manager Relationship Specialty Start Date End Date Amador Abdalla MD [address] [place] [address] PCP - General Family Medicine 04/25/23 Carmina Garcia LSW Staff Cytotechnologist [facility] Medicine 02/28/24 Miguel Blank MA Family Medicine 02/28/24 FOR RECORDS PERTAINING TO PATIENTS WHO ARE [...] BE BASED ON THE PRIMARY CLINICAL RECORDS. [facility] [employer] [facility]. provides no warranty or guarantee of the accuracy or completeness of information in this document.
[2024-04-02 18:42] LABS: Lactate/Lactic Acid 1.9 mmol/L (0.4-2.0); Troponin I High Sensitivity 16.4 pg/mL (4.0-51.3)
[2024-04-02 18:45] LABS: Magnesium 2.2 mg/dL (1.8-2.4)
[2024-04-02 18:54] LABS: Thyroid Stimulating Hormone 1.954 uIU/mL (0.358-3.740)
--- NOTE | 2024-04-02 19:31 | P.HP_ITS ---
HPI H&P: HPI History of Present Illness Chief complaint: HYPERGLYCEMIA uti weakness Narrative: Patient presented to the emergency room with increasing weakness, found of significant hyperglycemia as well as acute UTI and severe weakness. Patient admitted for workup and treatment of same When I saw patient in the emergency room, she was resting comfortably in bed with family at the bedside, no specific complaints other than the suprapubic pain consistent with the acute UTI Opioid HPI Opioid Management Most Recent Pain and Opioid Data: Last Pain Scale 0 04/02/24 18:00 04/02/24 Last Pain Assessment 04/02/24 18:00 Last ORT Total Score 1 04/02/24 17:57 04/02/24 Last ORT Risk Category Low Risk 04/02/24 17:57 04/02/24 Review of Systems ROS Status of ROS 10 or more systems reviewed and unremark able except as noted in history and below [facility] Medical History (Updated 04/02/24 @ 16:56 by Cookie Chavez DO) UTI (urinary tract infection) ?N39.0 - Urinary tract infection, site not specified (ICD-10) Elevated troponin ?R79.89 - Other specified abnormal findings of blood chemistry (ICD-10) Generalized weakness ?R53.1 - Weakness (ICD-10) Fall ?W19.XXXA - Unspecified fall, initial encounter (ICD-10) HTN (hypertension) ?I10 - Essential (primary) hypertension (ICD-10) HLD (hyperlipidemia) ?E78.5 - Hyperlipidemia, unspecified (ICD-10) CAD (coronary artery disease) ?I25.10 - Atherosclerotic heart disease of [place] coronary artery without angina pectoris (ICD-10) History of heart attack ?I25.2 - Old myocardial infarction (ICD-10) History of stroke ?Z86.73 - Personal history of transient ischemic attack (TIA), and cerebral infarction without residual deficits (ICD-10) Diabetes ?E11.9 - Type 2 diabetes mellitus without complications (ICD-10) Surgical History (Updated 11/18/23 @ 12:47 by Leona Mario LPN) History of heart artery stent ?Z95.5 - Presence of coronary angioplasty implant and graft (ICD-10) Hx of cholecystectomy ?Z90.49 - Acquired absence of other specified parts of digestive tract (ICD- 10) H/O hernia repair ?Z98.890 - Other specified postprocedural states (ICD-10) ?Z87.19 - Personal history of other diseases of the digestive system (ICD-10) Family History (Updated 11/18/23 @ 12:46 by Leona Mario LPN) Mother Family history of COPD (chronic obstructive pulmonary disease) Family history of cancer Family history of diabetes mellitus Father Family history of hypertension Social History (Updated 11/18/23 @ 12:49 by Leona Mario LPN) Within the past year, how often did you have a drink containing alcohol: never Within the past year, how often did you have six or more drinks on one occasion: never Score interpretation: A score less than 3 is consistent with normal alcohol consumption. Smoking status: Never smoker Second hand tobacco smoke exposure: No Non-prescribed substance use: denies use Previous occupational history: retired Known occupational exposures/hazards: No Highest level of school completed/degree received: GED or equivalent Are you now , , , , never or living with a partner: In a typical week, how many times do you talk on the telephone with family, friends, or neighbors: 3 or more times per week How often do you get together with friends or relatives: 3 or more times per week How often do you attend adventist or religion services: never Do you belong to any clubs or organizations such as adventist groups unions, [email or web address] or athletic groups, or school groups: no Total score: 1 Score interpretation: A score of less than or equal to 1 indicates the most socially isolated. Little interest or pleasure in doing things: not at all Feeling down, depressed, or hopeless: several days Feel stressed/tense/nervous/anxious/difficulty sleeping: not at all Due to disability, difficulty making decisions: No Do you think of yourself as: straight/heterosexual Gender Identity: female Meds Home Medications and Allergies Home Medications ?Medication ?Instructions ?Recorded ?Confirmed ?Type alprazolam 0.5 mg tablet 0.5 mg PO TID PRN anxiety 11/18/23 04/02/24 History amlodipine 10 mg tablet 10 mg PO DAILY 11/18/23 04/02/24 History atorvastatin 80 mg tablet 80 mg PO .QHS 11/18/23 04/02/24 History bupropion HCl 150 mg 24 hr tablet, 150 mg PO DAILY 11/18/23 04/02/24 History extended release cholecalciferol (vitamin D3) 25 25 mcg PO DAILY 11/18/23 04/02/24 History mcg (1,000 unit) tablet famotidine 40 mg tablet 40 mg PO DAILY 11/18/23 04/02/24 History furosemide 20 mg tablet 20 mg PO DAILY 11/18/23 04/02/24 History hydralazine 100 mg tablet 100 mg PO TID 11/18/23 04/02/24 History hydrocodone 5 mg-acetaminophen 325 1 tab PO Q8H PRN pain (scale score 11/18/23 04/02/24 History mg tablet 7-10) montelukast 10 mg tablet 10 mg PO .QHS 11/18/23 04/02/24 History nystatin 100,000 unit/gram topical 1 applic topical TID PRN rash 11/18/23 04/02/24 History powder (Klayesta) pantoprazole 40 mg tablet,delayed 40 mg PO BID 11/18/23 04/02/24 History release paroxetine HCl 40 mg tablet 40 mg PO DAILY 11/18/23 04/02/24 History sitagliptin phosphate 25 mg tablet 25 mg PO DAILY 11/18/23 04/02/24 History (Shanika) sucralfate 1 gram tablet 1 g PO .QHS 11/18/23 04/02/24 History temazepam 15 mg capsule 15 mg PO .QHS 11/18/23 04/02/24 History carvedilol 6.25 mg tablet 12.5 mg (2 x 6.25 mg) PO BID #0 11/19/23 04/02/24 Rx tabs carvedilol 25 mg tablet 25 mg PO BID 04/02/24 04/02/24 History Allergies Allergy/AdvReac Type Severity Reaction Status Date / Time cyclobenzaprine (From Allergy Severe Rash Verified 04/02/24 13:30 Flexeril) ethinyl estradiol (From Allergy Severe Swelling Verified 04/02/24 13:30 [place] (28)) of Lip/Tongue/Throat exenatide (From [place]) Allergy Severe Rash Verified 04/02/24 13:30 Iodinated Contrast Media Allergy Severe Rash Verified 04/02/24 13:30 levonorgestrel (From [place] Allergy Severe Swelling Verified 04/02/24 13:30 (28)) of Lip/Tongue/Throat Penicillins Allergy Severe Rash Verified 04/02/24 13:30 prochlorperazine (From Allergy Severe Confusion Verified 04/02/24 13:30 Compazine) clindamycin (From Cleocin) AdvReac Severe esophagus Verified 04/02/24 13:30 spasms doxycycline AdvReac Severe Nausea Verified 02/23/24 13:18 levofloxacin AdvReac Severe Nausea Verified 04/02/24 13:30 ticagrelor (From Brilinta) AdvReac Severe Vomiting Verified 04/02/24 13:30 trazodone AdvReac Severe Nausea Verified 04/02/24 13:30 Exam Constitutional Vital Signs, click to edit/add: Last Vital Signs Temp 98.0 F 04/02/24 17:57 Pulse 72 04/02/24 17:57 Resp 16 04/02/24 17:57 BP 160/64 H 04/02/24 17:57 Pulse Ox 95 04/02/24 17:57 O2 Del Method Room Air 04/02/24 17:57 Documenting provider has reviewed patient's vital signs: yes Common normals: no apparent distress Chest Common normals: inspection of chest normal and palpation of chest normal Respiratory Common normals: normal respiratory effort and no use of accessory muscles Cardio Common normals: regular rate and regular rhythm GI Common normals: Normal to inspection, nondistended, normoactive bowel sounds present and soft to palpation; tender (Suprapubic tenderness) Extremity Common normals: normal to inspection and no clubbing, cyanosis or edema Results Labs Labs: Short CBC 04/02/24 Range/Units 13:35 WBC 7.6 (4.0-11.0) 10^3/uL Hgb 12.3 (12.0-16.0) g/dL Hct 37.2 (36.0-48.0) % Plt Count 230 (150-450) 10^3/uL BMP 04/02/24 13:35 Sodium 133 L Potassium 4.4 Chloride 97 L Carbon Dioxide 28.7 BUN 33.0 H Creatinine 2.12 H Glucose 407 H Calcium 10.1 Liver Function 04/02/24 Range/Units 13:35 Total Bilirubin 0.5 (0.2-1.0) mg/dL AST 14 L (15-37) U/L ALT 33 (14-59) U/L Alkaline Phosphatase 82 (46-116) U/L Albumin 3.1 L (3.4-5.0) g/dL Urine 04/02/24 Range/Units 15:22 Urine Color Lt. yellow (YELLOW) Urine Clarity Clear (CLEAR) Urine pH 6.0 (5.0-9.0) Ur Specific [place] 1.010 (1.005-1.025) Urine Protein 100 A (NEG/TRACE) mg/dL Urine Glucose (UA) 250 A (NEGATIVE) mg/dL Assessment and Plan Assessment and Plan (1) Acute hyperglycemia: (2) Acute UTI: (3) Weakness: Plan Admission findings: Severe hyperglycemia, uncontrolled hypertension, white blood cell count normal but significant left shift, acute UTI, acute elevation in creatinine at 127% above baseline Acute UTI-check on lactic level, possible lactic acidosis complicating the above, IV fluid resuscitation, IV antibiotics x 2, culture pending, repeat white blood cell count in a.m. Uncontrolled hypertension-Home medications plus as needed hydralazine Poorly controlled diabetes mellitus-insulin sliding scale plus home medications Generalized anxiety disorder-continue with home medications GERD-continue with home medications Fluid retention by history-does not appear to be fluid overloaded at the present time we will hold off on diuretics as we are hydrating for the above Insomnia-continue with home medications Severe weakness-patient never really fully recovered from previous infection but now is severely weak compared to her baseline, this has happened over the last 2 days when I suspect the urinary tract infection started, she is highly motivated for improving her overall strength and she would be an excellent rehabilitation candidate Admission status: Patient with significant UTI, left shift, uncontrolled hypertension, poorly controlled diabetes mellitus secondary to the acute UTI, medically necessary treatment will span at least 2 midnights, inpatient status.
[2024-04-02 20:10] LABS: Glucometer 169 mg/dL (74-106)
[2024-04-02] MEDS: OMEPRAZOLE 20 MG CAPSULE.DR PO (20:49)
[2024-04-02] MEDS: HYDROCODONE/ACET 5-325 MG TABLET 1 TAB PO (20:49)
[2024-04-02] MEDS: ATORVASTATIN CALCIUM 40 MG TABLET 80 MG PO (20:49)
[2024-04-02] MEDS: LEVOFLOXACIN IN DEXTROSE 5 % 750 MG/150 ML PREMIX 100 MG IV (20:51)
[2024-04-02] MEDS: LACTATED RINGER'S SOLUTION 1,000 ML 100 ML IV (20:51)
[2024-04-02] MEDS: HYDRALAZINE HCL 50 MG TABLET 100 MG PO (21:11)
[2024-04-02] MEDS: MONTELUKAST SODIUM 10 MG TABLET PO (21:11)
[2024-04-02] MEDS: SUCRALFATE 1 GM TABLET PO (21:11)
[2024-04-02] MEDS: TEMAZEPAM 15 MG CAPSULE PO (21:11)
[2024-04-02] MEDS: CARVEDILOL 6.25 MG TABLET 12.5 MG PO (21:30)
[2024-04-02] MEDS: CARVEDILOL 25 MG TABLET PO (22:20)
[2024-04-02] MEDS: ACETAMINOPHEN 500 MG TABLET 1000 MG PO (22:20)
[2024-04-03] VITALS (8 sets, daily range): BP systolic 111–160; BP diastolic 49–75; PULSE 48–80; TEMP 36.7–37.1; O2SAT 91–94
[2024-04-03 05:41] LABS: Anion Gap 9.5; BUN Creatinine Ratio 13.6; Calcium 9.2 mg/dL (8.5-10.1); Carbon Dioxide 31.3 mmol/L (21.0-32.0); Chloride 103 mmol/L (98-107); Estimated GFR (African America 30 (>=60 mL/min/1.73m^2); Estimated GFR (Non-African Ame 25 (>=60 mL/min/1.73m^2); Glucose 151 mg/dL (74-106); Potassium 3.8 mmol/L (3.5-5.1); Sodium 140 mmol/L (136-145)
[2024-04-03] MEDS: HYDRALAZINE HCL 50 MG TABLET 100 MG PO ×3 (06:10→21:25)
[2024-04-03] MEDS: LACTATED RINGER'S SOLUTION 1,000 ML 100 ML IV (06:10)
[2024-04-03 06:24] LABS: Basophils Percent Auto 0.5 % (0.2-2.0); Eosinophils Absolute Auto 0.3 10^3/uL (0.0-0.7); Eosinophils Percent Auto 3.4 % (0.9-7.0); Hematocrit 33.4 % (36.0-48.0); Hemoglobin 11.1 g/dL (12.0-16.0); Immature Granulocytes Abs Auto 0.02 10^3/uL (0.00-0.03); Immature Granulocytes Pct Auto 0.3 % (0.0-0.5); Lymphocytes Absolute Auto 1.7 10^3/uL (1.2-3.8); Lymphocytes Percent Auto 21.8 % (20.5-60.0); Mean Corpuscular HGB Conc 33.2 g/dL (29.9-35.2); Mean Corpuscular Hemoglobin 30.9 pg (26.7-34.0); Mean Platelet Volume 10.4 fL (9.5-13.5); Monocytes Absolute Auto 0.8 10^3/uL (0.3-0.8); Monocytes Percent Auto 10.8 % (1.7-12.0); Neutrophils Absolute Auto 4.8 10^3/uL (1.4-6.5); Neutrophils Percent Auto 63.2 % (43.0-75.0); Platelet Count 212 10^3/uL (150-450); Red Blood Count 3.59 10^6/uL (4.20-5.40); Red Cell Distribution Width 12.3 % (11.0-15.0); White Blood Count 7.7 10^3/uL (4.0-11.0)
--- NOTE | 2024-04-03 06:46 | P.PN_ITS ---
Progress Note: Subjective Subjective Interval history: Patient still with significant weakness, sugar continues to fluctuate Exam Constitutional Vital Signs, click to edit/add: Last Vital Signs Temp 98.2 F 04/03/24 04:00 Pulse 65 04/03/24 04:00 Resp 12 04/03/24 04:00 BP 157/68 H 04/03/24 04:00 Pulse Ox 94 L 04/03/24 05:05 O2 Del Method Room Air 04/03/24 05:05 Documenting provider has reviewed patient's vital signs: yes Common normals: no apparent distress Chest Common normals: inspection of chest normal and palpation of chest normal Respiratory Common normals: normal respiratory effort, no retractions and clear to auscultation bilaterally Cardio Common normals: regular rate and no murmurs GI Common normals: Normal to inspection, nondistended, normoactive bowel sounds present and soft to palpation; tender (Suprapubic tenderness) Extremity Common normals: normal to inspection and no clubbing, cyanosis or edema Progress Note: Objective Labs Labs: Short CBC 04/02/24 04/03/24 Range/Units 13:35 06:07 WBC 7.6 7.7 (4.0-11.0) 10^3/uL Hgb 12.3 11.1 L (12.0-16.0) g/dL Hct 37.2 33.4 L (36.0-48.0) % Plt Count 230 212 (150-450) 10^3/uL BMP 04/02/24 04/03/24 13:35 05:05 Sodium 133 L 140 Potassium 4.4 3.8 Chloride 97 L 103 Carbon Dioxide 28.7 31.3 BUN 33.0 H 27.0 H Creatinine 2.12 H 1.98 H Glucose 407 H 151 H Calcium 10.1 9.2 Liver Function 04/02/24 Range/Units 13:35 Total Bilirubin 0.5 (0.2-1.0) mg/dL AST 14 L (15-37) U/L ALT 33 (14-59) U/L Alkaline Phosphatase 82 (46-116) U/L Albumin 3.1 L (3.4-5.0) g/dL Urine 04/02/24 Range/Units 15:22 Urine Color Lt. yellow (YELLOW) Urine Clarity Clear (CLEAR) Urine pH 6.0 (5.0-9.0) Ur Specific Manson 1.010 (1.005-1.025) Urine Protein 100 A (NEG/TRACE) mg/dL Urine Glucose (UA) 250 A (NEGATIVE) mg/dL Progress Note: A&P Assessment and Plan (1) Acute hyperglycemia: (2) Acute UTI: (3) Weakness: Plan Admission findings: Severe hyperglycemia, uncontrolled hypertension, white blood cell count normal but significant left shift, acute UTI, acute elevation in creatinine at 127% above baseline Acute UTI-culture pending, continue with current antibiotic regiment white blood cell count is stable Uncontrolled hypertension-Home medications plus as needed hydralazine-stable Poorly controlled diabetes mellitus-insulin sliding scale plus home medications- better with the sliding scale but still significantly elevated, Hyponatremia on admission-improving but is still diminished Generalized anxiety disorder-continue with home medications GERD-continue with home medications Fluid retention by history-does not appear to be fluid overloaded at the present time we will hold off on diuretics as we are hydrating for the above Insomnia-continue with home medications Severe weakness-patient never really fully recovered from previous infection but now is severely weak compared to her baseline, this has happened over the last 2 days when I suspect the urinary tract infection started, she is highly motivated for improving her overall strength and she would be an excellent rehabilitation candidate Admission status: Patient with significant UTI, left shift, uncontrolled hypertension, poorly controlled diabetes mellitus secondary to the acute UTI, medically necessary treatment will span at least 2 midnights, inpatient status. ?
[2024-04-03 08:50] LABS: Glucometer 179 mg/dL (74-106)
--- NOTE | 2024-04-03 09:42 | CM.NOTE ---
Rounds made with Dr. Underwood, discussed reason for admission and plan of care. PT and OT will evaluate pt today for discharge planning. No discharge today.
[2024-04-03] MEDS: INSULIN ASPART 300 UNIT/3 ML PEN SUBQ ×4 (09:55→21:27)
[2024-04-03] MEDS: AMLODIPINE BESYLATE 5 MG TABLET 10 MG PO (09:56)
[2024-04-03] MEDS: CARVEDILOL 25 MG TABLET PO ×2 (09:56→20:47)
[2024-04-03] MEDS: FAMOTIDINE 20 MG TABLET 40 MG PO (09:56)
[2024-04-03] MEDS: PAROXETINE HCL 20 MG TABLET 40 MG PO (09:56)
[2024-04-03] MEDS: BUPROPION HCL 150 MG XL TABLET 24H PO (09:56)
[2024-04-03] MEDS: ASPIRIN 81 MG TABLET.DR PO (09:56)
[2024-04-03] MEDS: CHOLECALCIFEROL (VITAMIN D3) 25 MCG/1,000 UNITS TABLET PO (09:56)
[2024-04-03] MEDS: OMEPRAZOLE 20 MG CAPSULE.DR PO ×2 (09:56→20:47)
[2024-04-03] MEDS: SITAGLIPTIN PHOSPHATE 50 MG TABLET 25 MG PO (09:56)
--- NOTE | 2024-04-03 10:40 | SWNOTE1 ---
Important Message from Medicare reviewed and discussed with patient. Pt. verbalized understanding and signed the form. Original given to patient and copy placed in patient?s chart.
--- NOTE | 2024-04-03 10:40 | SWNOTE1 ---
SW met with pt to discuss dc needs. Pt lives at home by herself. Pt uses a rollator at home. Pt's daughter does check on her when she is not working. Pt does admit to falling at home more recently and admits to being weaker at this time. SW spoke to her about rehab as it is recommended at this time. Pt is agreeable to rehab. She voiced she has been to the [facility] in past and that is her first choice. [facility] is second choice. Referral sent to [facility]. Referral included face sheet, ED note, H&P, provider notes, case management report, nursing notes, diagnostic imaging, med list, and PT/OT notes.
[2024-04-03] MEDS: ACETAMINOPHEN 500 MG TABLET 1000 MG PO (11:28)
[2024-04-03 11:30] LABS: Glucometer 243 mg/dL (74-106)
--- NOTE | 2024-04-03 12:42 | SWNOTE1 ---
[facility] is able to accept and will start precert.
--- NOTE | 2024-04-03 14:00 | SWNOTE1 ---
SW received a call from Gabrielle at [facility]. Pt is approved to go to [facility], but the approval starts tomorrow. JIMMIE to notify doctor.
--- NOTE | 2024-04-03 14:26 | SWNOTE1 ---
SW updated nurse and doctor of approval starting tomorrow for [facility].
[2024-04-03 16:05] LABS: Glucometer 202 mg/dL (74-106)
[2024-04-03] MEDS: CEFTRIAXONE 1,000 MG in 0.9 % SODIUM CHLORIDE 50 ML 100 MG IV (17:23)
[2024-04-03 19:23] LABS: Glucometer 278 mg/dL (74-106)
[2024-04-03] MEDS: HYDROCODONE/ACET 5-325 MG TABLET 1 TAB PO (20:47)
[2024-04-03] MEDS: SUCRALFATE 1 GM TABLET PO (21:25)
[2024-04-03] MEDS: ATORVASTATIN CALCIUM 40 MG TABLET 80 MG PO (21:25)
[2024-04-03] MEDS: MONTELUKAST SODIUM 10 MG TABLET PO (21:26)
[2024-04-03] MEDS: TEMAZEPAM 15 MG CAPSULE PO (21:26)
[2024-04-04 00:06] VITALS: BP 162/68; PULSE 74; TEMP 36.7; O2SAT 91
[2024-04-04 04:39] VITALS: O2SAT 95
[2024-04-04 04:57] VITALS: BP 165/69; PULSE 72; TEMP 36.6; O2SAT 91
[2024-04-04 05:50] LABS: Basophils Percent Auto 0.5 % (0.2-2.0); Eosinophils Absolute Auto 0.3 10^3/uL (0.0-0.7); Eosinophils Percent Auto 3.6 % (0.9-7.0); Hematocrit 33.2 % (36.0-48.0); Hemoglobin 10.7 g/dL (12.0-16.0); Immature Granulocytes Abs Auto 0.02 10^3/uL (0.00-0.03); Immature Granulocytes Pct Auto 0.3 % (0.0-0.5); Lymphocytes Absolute Auto 1.9 10^3/uL (1.2-3.8); Lymphocytes Percent Auto 24.5 % (20.5-60.0); Mean Corpuscular HGB Conc 32.2 g/dL (29.9-35.2); Mean Corpuscular Hemoglobin 30.7 pg (26.7-34.0); Mean Corpuscular Volume 95.1 fL (81.0-99.0); Mean Platelet Volume 10.7 fL (9.5-13.5); Monocytes Absolute Auto 0.9 10^3/uL (0.3-0.8); Monocytes Percent Auto 11.3 % (1.7-12.0); Neutrophils Absolute Auto 4.6 10^3/uL (1.4-6.5); Neutrophils Percent Auto 59.8 % (43.0-75.0); Platelet Count 206 10^3/uL (150-450); Red Blood Count 3.49 10^6/uL (4.20-5.40); Red Cell Distribution Width 12.4 % (11.0-15.0); White Blood Count 7.8 10^3/uL (4.0-11.0)
[2024-04-04] MEDS: HYDRALAZINE HCL 50 MG TABLET 100 MG PO (05:59)
[2024-04-04] MEDS: ACETAMINOPHEN 500 MG TABLET 1000 MG PO (05:59)
[2024-04-04 06:07] LABS: Anion Gap 9.7; Calcium 9.4 mg/dL (8.5-10.1); Carbon Dioxide 30.2 mmol/L (21.0-32.0); Chloride 107 mmol/L (98-107); Estimated GFR (African America 29 (>=60 mL/min/1.73m^2); Estimated GFR (Non-African Ame 24 (>=60 mL/min/1.73m^2); Glucose 135 mg/dL (74-106); Potassium 3.9 mmol/L (3.5-5.1); Sodium 143 mmol/L (136-145)
--- NOTE | 2024-04-04 06:20 | P.DS_ITS ---
DS: Providers Provider Date of admission: 04/02/24 17:49 Primary care physician: Amador Lopez MD Consults: 04/02/24 18:09 Occupational Therapy Eval and Treat Routine Reason for consultation: Only if needed for Rehab Has provider been notified: No Physical Therapy Eval and Treat Routine Reason for consultation: Eval and Treat Has provider been notified: No 04/02/24 18:16 Consult to [employer] Routine Reason for consult:: Group Home Other reason:: placement DS: Diagnosis Discharge Diagnosis (1) Acute hyperglycemia: (2) Acute UTI: (3) Weakness: (4) Insomnia: (5) Anxiety: Plan Admission findings: Severe hyperglycemia, uncontrolled hypertension, white blood cell count normal but significant left shift, acute UTI, acute elevation in creatinine at 127% above baseline Acute UTI-culture pending, continue with current antibiotic regiment white blood cell count is stable Uncontrolled hypertension-Home medications plus as needed hydralazine-stable Poorly controlled diabetes mellitus-insulin sliding scale plus home medications- better with the sliding scale but still significantly elevated, Hyponatremia on admission-improving but is still diminished Generalized anxiety disorder-continue with home medications GERD-continue with home medications Fluid retention by history-does not appear to be fluid overloaded at the present time we will hold off on diuretics as we are hydrating for the above Insomnia-continue with home medications Severe weakness-patient never really fully recovered from previous infection but now is severely weak compared to her baseline, this has happened over the last 2 days when I suspect the urinary tract infection started, she is highly motivated for improving her overall strength and she would be an excellent rehabilitation candidate Admission status: Patient with significant UTI, left shift, uncontrolled hypertension, poorly controlled diabetes mellitus secondary to the acute UTI, medically necessary treatment will span at least 2 midnights, inpatient status. ? ? DS: Summary Hospital Course Hospital Course: Patient presented to the emergency room with severe weakness, questionable altered mental status, found to have significant hyperglycemia secondary to acute failed outpatient treatment UTI, patient was admitted, given fluid resuscitation, IV antibiotics, cultures are still pending this time hospitalization we will continue to adjust medications sugars continue to improve throughout the, at this point in time she is improved, not quite back to baseline but strong enough for rehab, medications see list, follow-up with PCP after discharge from rehab Status at Discharge Overall status at discharge: patient is not back to baseline Time Spent with Patient Time attestation: Total time spent providing and/or coordinating discharge services: Time spent: greater than 30 minutes Exam Constitutional Vital Signs, click to edit/add: Last Vital Signs Temp 97.8 F 04/04/24 04:57 Pulse 72 04/04/24 04:57 Resp 17 04/04/24 04:57 BP 165/69 H 04/04/24 04:57 Pulse Ox 91 L 04/04/24 04:57 O2 Del Method Room Air 04/04/24 04:57 Documenting provider has reviewed patient's vital signs: yes Common normals: no apparent distress (Looks much improved from admission) Chest Common normals: inspection of chest normal and palpation of chest normal Respiratory Common normals: normal respiratory effort, no retractions and clear to auscultation bilaterally Cardio Common normals: regular rate and no murmurs GI Common normals: Normal to inspection, nondistended, normoactive bowel sounds present and soft to palpation; tender (Suprapubic tenderness) Extremity Common normals: normal to inspection and no clubbing, cyanosis or edema DS: Data Data Completed and Pending Labs on day of discharge: Labs from last 24 hours 04/04/24 04/03/24 04/03/24 05:25 19:22 16:03 WBC 7.8 RBC 3.49 L Hgb 10.7 L Hct 33.2 L MCV 95.1 MCH 30.7 MCHC 32.2 RDW 12.4 Plt Count 206 MPV 10.7 Neut % (Auto) 59.8 Lymph % (Auto) 24.5 Yell % (Auto) 11.3 Eos % (Auto) 3.6 Baso % (Auto) 0.5 Neut # (Auto) 4.6 Lymph # (Auto) 1.9 Yell # (Auto) 0.9 H Eos # (Auto) 0.3 Baso # (Auto) 0.0 Abs Immat Gran (auto) 0.02 Imm/Tot Granulo (auto) 0.3 Sodium 143 Potassium 3.9 Chloride 107 Carbon Dioxide 30.2 Anion Gap 9.7 BUN 30.0 H Creatinine 2.00 H Est GFR ( Amer) 29 L Est GFR (Non-Af Amer) 24 L BUN/Creatinine Ratio 15.0 Glucose 135 H Calcium 9.4 POC Glucose 278 H 202 H 04/03/24 04/03/24 04/03/24 11:20 08:39 06:07 WBC 7.7 RBC 3.59 L Hgb 11.1 L Hct 33.4 L MCV 93.0 MCH 30.9 MCHC 33.2 RDW 12.3 Plt Count 212 MPV 10.4 Neut % (Auto) 63.2 Lymph % (Auto) 21.8 Yell % (Auto) 10.8 Eos % (Auto) 3.4 Baso % (Auto) 0.5 Neut # (Auto) 4.8 Lymph # (Auto) 1.7 Yell # (Auto) 0.8 Eos # (Auto) 0.3 Baso # (Auto) 0.0 Abs Immat Gran (auto) 0.02 Imm/Tot Granulo (auto) 0.3 Sodium Potassium Chloride Carbon Dioxide Anion Gap BUN Creatinine Est GFR ( Amer) Est GFR (Non-Af Amer) BUN/Creatinine Ratio Glucose Calcium POC Glucose 243 H 179 H Discharge Plan Discharge Disposition: Xfer SNF Condition: Fair Discharge Medications: New glimepiride 2 mg Tablet 1 mg PO QD Qty: 30 11RF levofloxacin 500 mg tablet 500 mg PO DAILY 7 Days Qty: 7 0RF Continued amlodipine 10 mg tablet 10 mg PO DAILY atorvastatin 80 mg tablet 80 mg PO .QHS bupropion HCl 150 mg tablet extended release 24 hr 150 mg PO DAILY cholecalciferol (vitamin D3) 25 mcg (1,000 unit) tablet 25 mcg PO DAILY famotidine 40 mg tablet 40 mg PO DAILY hydralazine 100 mg tablet 100 mg PO TID montelukast 10 mg tablet 10 mg PO .QHS nystatin [Klayesta] 100,000 unit/gram powder 1 applic TOPICAL TID PRN (Reason: rash) pantoprazole 40 mg tablet,delayed release (DR/EC) 40 mg PO BID paroxetine HCl 40 mg tablet 40 mg PO DAILY Januvia 25 mg tablet 25 mg PO DAILY sucralfate 1 gram tablet 1 g PO .QHS carvedilol 6.25 mg tablet 12.5 mg PO BID Qty: 0 0RF carvedilol 25 mg tablet 25 mg PO BID fluticasone propionate 50 mcg/actuation spray,suspension 2 spray INTRANASAL DAILY PRN (Reason: nasal congestion) metoclopramide HCl 5 mg tablet 5 mg PO .hs aspirin [Adult Aspirin Regimen] 81 mg tablet,delayed release (DR/EC) 81 mg PO DAILY hydrocodone-acetaminophen 5-325 mg tablet 1 tab PO Q8H PRN (Reason: pain (scale score 7-10)) Qty: 90 0RF alprazolam 0.5 mg tablet 0.5 mg PO TID PRN (Reason: anxiety) Qty: 90 0RF temazepam 15 mg capsule 15 mg PO .QHS Qty: 30 0RF Discontinued furosemide 20 mg tablet 20 mg PO DAILY Print Language: Yakut Writing Manager/[employer] Production Instructions: Discharge to [facility] Forms: Portal Instructions Discharge Date/Time: 04/04/24 11:38
[2024-04-04] MEDS: 0.9 % SODIUM CHLORIDE 1,000 ML 500 ML IV (06:41)
[2024-04-04 07:26] VITALS: BP 173/56; PULSE 64; TEMP 36.7; O2SAT 91
[2024-04-04] MEDS: GLIMEPIRIDE 2 MG TABLET 1 MG PO (08:21)
[2024-04-04] MEDS: AMLODIPINE BESYLATE 5 MG TABLET 10 MG PO (08:21)
[2024-04-04] MEDS: FAMOTIDINE 20 MG TABLET 40 MG PO (08:21)
[2024-04-04] MEDS: SITAGLIPTIN PHOSPHATE 50 MG TABLET 25 MG PO (08:22)
[2024-04-04] MEDS: CHOLECALCIFEROL (VITAMIN D3) 25 MCG/1,000 UNITS TABLET PO (08:22)
[2024-04-04] MEDS: PAROXETINE HCL 20 MG TABLET 40 MG PO (08:22)
[2024-04-04] MEDS: CARVEDILOL 25 MG TABLET PO (08:22)
[2024-04-04] MEDS: OMEPRAZOLE 20 MG CAPSULE.DR PO (08:22)
[2024-04-04] MEDS: BUPROPION HCL 150 MG XL TABLET 24H PO (08:22)
[2024-04-04] MEDS: ASPIRIN 81 MG TABLET.DR PO (08:22)
--- NOTE | 2024-04-04 08:25 | SWNOTE1 ---
Pt is stable for discharge to [facility] today. SW reached out to [facility] and they are checking to see if they have transport available.
--- NOTE | 2024-04-04 08:36 | SWNOTE1 ---
SW completed HENS online.
--- NOTE | 2024-04-04 08:36 | SWNOTE1 ---
JIMMIE sent the urine culture result to [facility].
--- NOTE | 2024-04-04 09:03 | CM.NOTE ---
Rounds made with Dr. Underwood. Discharge to [facility]. Elif in agreement with plan.
--- NOTE | 2024-04-04 09:44 | SWNOTE1 ---
[facility] is able to [facility] patient at 11:30. JIMMIE notified nurse and pt's daughter of time. JIMMIE faxed over dc med rec, dc summary, and updated labs and vitals to [facility]. Pt is going to [facility].
[2024-04-04 10:41] VITALS: O2SAT 93
--- NOTE | 2024-04-10 09:19 | SWNOTE1 ---
Lizz from the [employer] called and left message. She had not heard from pt in over a week and was requesting hospital stay information for continuity of care. JIMMIE faxed H&P and discharge summary to Lizz at the [facility].
== END 2024-04-04 11:38 | DRG 690 ==
LOC: ER 16:56 → MS 17:51
PROVIDERS: Admitting Provider Family Medicine; Emergency Provider Emergency Medicine; PCP Family Medicine; Visit Provider Family Medicine
DX: N39.0 Urinary tract infection, site not specified (principal); E87.1 Hypo-osmolality and hyponatremia; E11.65 Type 2 diabetes mellitus with hyperglycemia; R53.1 Weakness; E78.5 Hyperlipidemia, unspecified; I25.10 Atherosclerotic heart disease of native coronary artery without angina pectoris; I25.2 Old myocardial infarction; I10 Essential (primary) hypertension; Z86.73 Personal history of transient ischemic attack (TIA), and cerebral infarction without residual deficits; Z95.5 Presence of coronary angioplasty implant and graft; Z90.49 Acquired absence of other specified parts of digestive tract; Z87.440 Personal history of urinary (tract) infections; Z79.899 Other long term (current) drug therapy; F41.1 Generalized anxiety disorder; K21.9 Gastro-esophageal reflux disease without esophagitis; G47.00 Insomnia, unspecified; Z79.84 Long term (current) use of oral hypoglycemic drugs; B96.89 Other specified bacterial agents as the cause of diseases classified elsewhere
CPT/HCPCS: 36415; 80048; 80053; 81001; 82948; 83605; 83735; 83880; 84436; 84443; 84484; 85025; 87045; 87046; 87070; 87086; 87150; 87186; 87427; 87493; 87804; 87811; 94761; 96365; 97161; 97165; 97530; 99285; J0696; J1817

== ENCOUNTER 2024-04-22 10:48 | Inpatient (IN) | payer MEDICARE, MEDICAID, SELFPAY ==
[2024-04-22] VITALS (28 sets, daily range): BP systolic 152–203; BP diastolic 45–78; PULSE 63–82; TEMP 36.6–36.8; O2SAT 90–96; BMI 32.6; BMI 32.8
--- NOTE | 2024-04-22 10:53 | ED.GENADUL1 ---
HPI HPI - General Adult General Chief complaint: Back Pain/Injury Stated complaint: LOWER BACK PAIN Time Seen by Provider: 04/22/24 10:52 History of Present Illness HPI narrative: Patient is a 78-year-old female who is presenting to the ER today with chief complaint of lower back pain. Patient has some ecchymosis to her lower back. 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 This occurred on Sunday. Patient was just discharged from the [facility] on Sunday. Patient was in the hospital prior to that. While she was at the [facility] for 2 weeks, she was developing shortness of breath and required oxygen. Patient went home with 2 L of nasal cannula oxygen. Patient was admitted to hospital initially for rhabdomyolysis. Patient had a fall on February 11 and was on the ground for 2 days before she was found. Patient was in the hospital, and then she was discharged to the [facility] for rehab. Patient's oxygen was dropping and 80% at the end of 2 weeks, and patient qualified for oxygen at home. Patient ran out of insurance coverage and was discharged from the [facility] home on Sunday. Patient daughter is at bedside, she works in the OB unit and nursing at the [facility]. Patient has no headache or neck pain. She has mild chest discomfort. No abdominal pain nausea or vomiting. She does have ecchymosis noted to her lower lip lumbar spine. Pain to lower back over the lumbar spine. Patient came in by EMS All systems are negative except as noted/marked. All systems reviewed and otherwise negative. Nurses note and vital signs reviewed and patient is low 90s oxygen saturation,. Patient is wearing 2 L nasal cannula. General: The patient appears mild distress secondary to pain. Patient is resting uncomfortably on cart. Patient is not toxic, lethargic, or listless Skin: Warm, dry, no pallor noted. There is no rash noted. No petechiae, purpura. Patient has black and blue/purple ecchymosis noted to lower lumbar spine over L1-L5 midline and parathoracic. No abrasion or laceration hematoma. Head: Normocephalic, atraumatic Eye: Normal conjunctiva, no drainage, EOMI. PERRL Ears, Nose, Mouth, and Throat: oral mucosa is moist. Nares patent. Mouth without vesicles. Cardiovascular: Regular Rate and Rhythm, no murmur, gallop, rub. Patient has mild tenderness to palpation to bilateral anterior chest wall, no pain to lateral and posterior chest wall. Respiratory: Patient is in no distress, no accessory muscle use, lungs are clear to auscultation, no wheezing, rales or rhonchi Back: non-tender, no CVA tenderness bilaterally to percussion. No CT LS midline pain. Patient has moderate to severe midline lumbar tenderness to palpation, ecchymosis noted to bilateral lower lumbar midline in para transthoracic area from L1-L5. Patient has moderate soft tissue tenderness to palpation of paralumbar area. Patient has mild to moderate lower thoracic midline and parathoracic tenderness to palpation. GI: no tenderness to palpation, no masses appreciated. No rebound, guarding, or rigidity noted. No distention. No flank pain bilateral. No pulsatile mass. Musculoskeletal: Patient has full range of motion of all of the extremities, no motor, sensory, or focal neurological deficits Neurological: A&O x4, normal speech Psychiatric: Cooperative Related Data Home Medications ?Medication ?Instructions ?Recorded ?Confirmed amlodipine 10 mg tablet 10 mg PO DAILY 11/18/23 04/22/24 atorvastatin 80 mg tablet 80 mg PO .QHS 11/18/23 04/22/24 bupropion HCl 150 mg 24 hr tablet, 150 mg PO DAILY 11/18/23 04/22/24 extended release cholecalciferol (vitamin D3) 25 25 mcg PO DAILY 11/18/23 04/22/24 mcg (1,000 unit) tablet famotidine 40 mg tablet 40 mg PO DAILY 11/18/23 04/22/24 hydralazine 100 mg tablet 100 mg PO TID 11/18/23 04/22/24 montelukast 10 mg tablet 10 mg PO .QHS 11/18/23 04/22/24 nystatin 100,000 unit/gram topical 1 applic topical TID PRN rash 11/18/23 04/22/24 powder (Klayesta) pantoprazole 40 mg tablet,delayed 40 mg PO BID 11/18/23 04/22/24 release paroxetine HCl 40 mg tablet 40 mg PO DAILY 11/18/23 04/22/24 sitagliptin phosphate 25 mg tablet 25 mg PO DAILY 11/18/23 04/22/24 (Januvia) sucralfate 1 gram tablet 1 g PO .QHS 11/18/23 04/22/24 aspirin 81 mg tablet,delayed 81 mg PO DAILY 04/02/24 04/22/24 release (Adult Aspirin Regimen) carvedilol 25 mg tablet 25 mg PO BID 04/02/24 04/22/24 fluticasone propionate 50 2 spray intranasal DAILY PRN nasal 04/02/24 04/22/24 mcg/actuation nasal congestion spray,suspension metoclopramide HCl 5 mg tablet 5 mg PO .hs 04/02/24 04/22/24 furosemide 20 mg tablet 20 mg PO DAILY 04/22/24 04/22/24 Previous Rx's ?Medication ?Instructions ?Recorded alprazolam 0.5 mg tablet 0.5 mg PO TID PRN anxiety #90 tabs 04/04/24 hydrocodone 5 mg-acetaminophen 325 1 tab PO Q8H PRN pain (scale score 04/04/24 mg tablet 7-10) #90 tabs temazepam 15 mg capsule 15 mg PO .QHS #30 caps 04/04/24 Allergies Allergy/AdvReac Type Severity Reaction Status Date / Time cyclobenzaprine (From Allergy Severe Rash Verified 04/22/24 10:50 Flexeril) ethinyl estradiol (From Allergy Severe Swelling Verified 04/22/24 10:50 [place] (28)) of Lip/Tongue/Throat exenatide (From [place]) Allergy Severe Rash Verified 04/22/24 10:50 Iodinated Contrast Media Allergy Severe Rash Verified 04/22/24 10:50 levonorgestrel (From [place] Allergy Severe Swelling Verified 04/22/24 10:50 (28)) of Lip/Tongue/Throat Penicillins Allergy Severe Rash Verified 04/22/24 10:50 prochlorperazine (From Allergy Severe Confusion Verified 04/02/24 13:30 Compazine) clindamycin (From Cleocin) AdvReac Severe esophagus Verified 04/22/24 10:50 spasms doxycycline AdvReac Severe Nausea Verified 04/22/24 10:50 levofloxacin AdvReac Severe Nausea Verified 04/22/24 10:50 ticagrelor (From Brilinta) AdvReac Severe Vomiting Verified 04/22/24 10:50 trazodone AdvReac Severe Nausea Verified 04/22/24 10:50 Opioid HPI Opioid Management Most Recent Opioid Data: Last Pain Scale 5 04/22/24 15:07 04/22/24 Last Pain Intensity 0 04/04/24 10:06 04/04/24 Last Pain Assessment 04/22/24 18:29 Last MAR Pain Assessment 04/22/24 14:19 Last ORT Total Score 0 04/22/24 14:59 04/22/24 Last ORT Risk Category Low Risk 04/22/24 14:59 04/22/24 PFSH PFSH Medical History (Updated 04/22/24 @ 13:27 by Brent Merrill MD) Acute hyperglycemia ?R73.9 - Hyperglycemia, unspecified (ICD-10) Acute UTI ?N39.0 - Urinary tract infection, site not specified (ICD-10) Weakness ?R53.1 - Weakness (ICD-10) UTI (urinary tract infection) ?N39.0 - Urinary tract infection, site not specified (ICD-10) Elevated troponin ?R79.89 - Other specified abnormal findings of blood chemistry (ICD-10) Generalized weakness ?R53.1 - Weakness (ICD-10) Fall ?W19.XXXA - Unspecified fall, initial encounter (ICD-10) HTN (hypertension) ?I10 - Essential (primary) hypertension (ICD-10) HLD (hyperlipidemia) ?E78.5 - Hyperlipidemia, unspecified (ICD-10) CAD (coronary artery disease) ?I25.10 - Atherosclerotic heart disease of [place] coronary artery without angina pectoris (ICD-10) History of heart attack ?I25.2 - Old myocardial infarction (ICD-10) History of stroke ?Z86.73 - Personal history of transient ischemic attack (TIA), and cerebral infarction without residual deficits (ICD-10) Diabetes ?E11.9 - Type 2 diabetes mellitus without complications (ICD-10) Surgical History (Updated 11/18/23 @ 12:47 by Leona Mario LPN) History of heart artery stent ?Z95.5 - Presence of coronary angioplasty implant and graft (ICD-10) Hx of cholecystectomy ?Z90.49 - Acquired absence of other specified parts of digestive tract (ICD-10) H/O hernia repair ?Z98.890 - Other specified postprocedural states (ICD-10) ?Z87.19 - Personal history of other diseases of the digestive system (ICD-10) Family History (Updated 11/18/23 @ 12:46 by Leona Mario LPN) Mother Family history of COPD (chronic obstructive pulmonary disease) Family history of cancer Family history of diabetes mellitus Father Family history of hypertension Social History (Updated 11/18/23 @ 12:49 by Leona Mario LPN) Within the past year, how often did you have a drink containing alcohol: never Within the past year, how often did you have six or more drinks on one occasion: never Score interpretation: A score less than 3 is consistent with normal alcohol consumption. Smoking status: Never smoker Second hand tobacco smoke exposure: No Non-prescribed substance use: denies use Previous occupational history: retired Known occupational exposures/hazards: No Highest level of school completed/degree received: GED or equivalent Are you now , , , , never or living with a partner: In a typical week, how many times do you talk on the telephone with family, friends, or neighbors: 3 or more times per week How often do you get together with friends or relatives: 3 or more times per week How often do you attend yazidi or baptist services: never Do you belong to any clubs or organizations such as yazidi groups unions, [employer] or athletic groups, or school groups: no Total score: 1 Score interpretation: A score of less than or equal to 1 indicates the most socially isolated. Little interest or pleasure in doing things: not at all Feeling down, depressed, or hopeless: not at all Feel stressed/tense/nervous/anxious/difficulty sleeping: not at all Due to disability, difficulty making decisions: No Do you think of yourself as: straight/heterosexual Gender Identity: female Exam Constitutional Vital Signs, click to edit/add: Last Vital Signs Temp 97.8 F 04/22/24 19:56 Pulse 74 04/22/24 19:56 Resp 18 04/22/24 19:56 BP 179/78 H 04/22/24 19:56 Pulse Ox 91 L 04/22/24 19:56 O2 Del Method Nasal Cannula 04/22/24 19:56 O2 Flow Rate 2 04/22/24 19:56 Course Vital Signs Vital signs: Vital Signs Temperature 98.1 F 04/22/24 10:50 Pulse Rate 63 04/22/24 10:50 Respiratory Rate 24 H 04/22/24 10:50 Blood Pressure 169/58 H 04/22/24 10:50 Pulse Oximetry 93 L 04/22/24 10:50 Oxygen Delivery Method Nasal Cannula 04/22/24 10:50 Oxygen Delivery Flow Rate 2 04/22/24 10:50 Temperature 97.8 F 04/22/24 19:56 Pulse Rate 74 04/22/24 19:56 Respiratory Rate 18 04/22/24 19:56 Blood Pressure 179/78 H 04/22/24 19:56 Pulse Oximetry 91 L 04/22/24 19:56 Oxygen Delivery Method Nasal Cannula 04/22/24 19:56 Oxygen Delivery Flow Rate 2 04/22/24 19:56 Medical Decision Making MDM Narrative Medical decision making narrative: Patient has evidence of L2, L3, L4 fracture of transverse process. Patient has ecchymosis noted to the lower lumbar area. Patient was just discharged from the [place] on Sunday secondary to her insurance has stopped coverage. Patient lives at home by herself. Patient was sent home with oxygen. Patient is not able to function and live on her own at this time. Patient daughter who is in nursing at [facility] in the OB unit has been at bedside. I have spoken to Jennifer, our criminal justice social worker. Patient cannot placed directly back into the [place], she needs recertification. Patient will be admitted to Dr. Underwood for medical admission, reevaluation of PT, OT, and treatment of pain. Patient fell on Sunday. Patient was having some bilateral anterior chest discomfort at admission. EKG shows no acute findings. A CT of the chest was done as well, Dr. Underwood will follow-up with the results. Patient was initially given ice and Tylenol. Patient was given morphine at admission. Patient remains on oxygen. Patient and daughter at bedside agree with admission. Lab Data Labs: Lab Results 04/22/24 Range/Units 13:48 WBC 9.1 (4.0-11.0) 10^3/uL RBC 3.13 L (4.20-5.40) 10^6/uL Hgb 9.7 L (12.0-16.0) g/dL Hct 30.1 L (36.0-48.0) % MCV 96.2 (81.0-99.0) fL MCH 31.0 (26.7-34.0) pg MCHC 32.2 (29.9-35.2) g/dL RDW 12.3 (11.0-15.0) % Plt Count 257 (150-450) 10^3/uL MPV 10.1 (9.5-13.5) fL Neut % (Auto) 78.4 H (43.0-75.0) % Lymph % (Auto) 10.0 L (20.5-60.0) % [place] % (Auto) 8.2 (1.7-12.0) % Eos % (Auto) 2.6 (0.9-7.0) % Baso % (Auto) 0.4 (0.2-2.0) % Neut # (Auto) 7.1 H (1.4-6.5) 10^3/uL Lymph # (Auto) 0.9 L (1.2-3.8) 10^3/uL [place] # (Auto) 0.8 (0.3-0.8) 10^3/uL Eos # (Auto) 0.2 (0.0-0.7) 10^3/uL Baso # (Auto) 0.0 (0.0-0.1) 10^3/uL Abs Immat Gran (auto) 0.04 H (0.00-0.03) 10^3/uL Imm/Tot Granulo (auto) 0.4 (0.0-0.5) % Sodium 139 (136-145) mmol/L Potassium 3.6 (3.5-5.1) mmol/L Chloride 102 (98-107) mmol/L Carbon Dioxide 32.4 H (21.0-32.0) mmol/L Anion Gap 8.2 BUN 33.0 H (7.0-18.0) mg/dL Creatinine 1.80 H (0.55-1.02) mg/dL Est GFR ( Amer) 33 L (>=60 mL/min/1.73m^2) Est GFR (Non-Af Amer) 27 L (>=60 mL/min/1.73m^2) BUN/Creatinine Ratio 18.3 Glucose 284 H (74-106) mg/dL Calcium 9.4 (8.5-10.1) mg/dL NT-Pro-B Natriuret Pep 4993.0 H* (<=1800.0) pg/mL ECG Data Attestation: I personally reviewed and interpreted this ECG as follows: (EKG interpretation. Normal sinus rhythm at 69 beats a minute. Normal axis deviation. No acute ST elevation, no acute ectopy. QTc of 441) Discharge Plan Discharge Chief Complaint: Back Pain/Injury Clinical Impression: Lumbar transverse process fracture, Anterior chest wall pain, Fall Patient Disposition: Admitted As Inpatient Time of Disposition Decision: 13:20 Condition: Fair Discharge Date/Time: 04/22/24 14:52
[2024-04-22] MEDS: ACETAMINOPHEN 500 MG TABLET PO (11:05)
--- OUTSIDE RECORDS SUMMARY | 2024-04-22 11:19 | XMS_ITS | CCD ---
Author Organization [facility] Team Providers Care Grievance Coordinator Name Role Phone CHIDI MELLO Unavailable Unavailable SVEN WILKINS Unavailable Unava ilable AL-HOURTAYLOR, EKLLI Admitting Unavailable AMEE-ELVIRA KELLI Attending Unavailable AMADOR ABDALLA Primary Care Unavailable CHIDI LEWIS Referring Unavailable Unavailable Primary Care Provider UnavailMD Amador Melissa Primary Care Provider [phone] MD Xander Hammer Admit Provider SHAHNAZ Pittman [...] Consulting Unavail able Trabmagnus, Isabel Consulting Unavailable O'Matthias, Rufus Consulting Unavailab alverto Kaur, Sandra Zuniga [...] Consulting Unavailable TRENTON COLLINS Attending Unavailable TRENTON OCLLINS Admitting Unavailable NADERER, DR AMADOR Arcos Primary [...] AMADOR Arcos Attending Unavailable NADERER, DR AMADOR Acros Admitting Unavailable NADERER, DR AMADOR Arcos Primary [...] Primary Care Unavailable POLICARO, NASRIN Consulting Unavailable CARIMNA NAVA Attending Unavailable MOUKARBCAROLINA LEIGH Attending Unavailable CHRISTOPHER GALICIA Attending Unavailable Amador Abdalla MD Primary Care Provider [phone] Carmina June Unavailable Miguel Blank MA Unavailable Unavailable NADERER, AMADOR Attending Unavailable FRANKY, TURNER Arcos Attending Unavailable NADERER, AMADOR Attending Unavailable BROWN, TURNER Arcos Attending Unavailable NADERECrystal, AMADOR Attending Unavailable NADERER, AMADOR Referring Unavailable NADERER, AMADOR Primary Care Unavailable Allergies Allergy Classification Reported Allergen(s) Allergy Type Date of Onset Reaction(s) Facility Contrast Media (1 source) Contrast media; Translations: [DYE] Substance Allergy 06-03-19 [facility] Repository cyclobenzaprine (1 source) cyclobenzaprine; Translations: [CYCLOBENZAPRINE] Drug Allergy 12-12-19 13 [facility] Repository Doxycycline (1 source) Doxycycline; Translations: [DOXYCYCLINE] Drug Allergy 12-22-19 [facility] Repository exenatide (1 source) exenatide; Translations: [EXENATIDE] Drug Allergy 12-28-19 [facility] Repository Lincosamides (antibiotic) (1 source) Clindamycin; Translations: [CLINDAMYCIN] Drug Allergy 05-27-19 [facility] Repository Opioid Agonists (1 source) Codeine; Translations: [CODEINE] Drug Allergy 12-28-19 [facility] Repository Penicillins (antibiotic) (1 source) Penicillins; Translations: [PENICILLINS] Drug Allergy 12-12-19 13 [facility] Repository Prochlorperazine (1 source) Prochlorperazine; Translations: [PROCHLORPERAZINE] Drug Allergy 12-12-19 13 [facility] Repository Serotonin Reuptake Inhibitors (SSRIs) (1 source) traZODone; Translations: [TRAZODONE] Drug Allergy 12-19-19 [facility] Repository Sucralfate (1 source) Sucralfate; Translations: [SUCRALFATE] Drug Allergy 12-22-19 [facility] Repository Ticagrelor (1 source) Ticagrelor; Translations: [TICAGRELOR] Drug Allergy 06-03-19 [facility] Repository Unclassified (1 source) OTHER; Translations: [OTHER] Propensity to adverse reactions (disorder) 12-12-19 13 [facility] Repository (4 sources) Clindamycin Drug Allergy 04-05-19 16 Difficulty Swallowing [facility] Repository (1 source) Codeine Drug Allergy 12-31-19 09 [facility] Rep[facility] (1 source) cyclobenzaprine Drug Allergy 12-31-19 09 [facility] (3 sources) exenatide Drug Allergy 08-26-19 17 [facility] Rep[facility] (3 sources) Penicillins Drug allergy (disorder) 12-31-19 09 Itching [facility] Rep[facility] (1 source) Prochlorperazine Drug Allergy 12-31-19 09 [facility] (2 sources) Iodinated Contrast Media - IV Dye Drug allergy (disorder) 12-31-19 09 [facility] Rep[facility] (1 source) trival; Translations: [trival] Propensity to adverse reactions (disorder) 12-17-19 13 [facility] Rep[facility] (4 sources) Amoxicillin; Translations: [amoxicillin] Drug Allergy 06-25-19 22 Unknown Reaction [facility] (20 sources) cyclobenzaprine; Translations: [cyclobenzaprine] Drug Allergy 12-12-19 13 Itching, Hives, Rash [facility] (20 sources) Doxycycline; Translations: [doxycycline] Drug Allergy 12-22-19 Diarrhea [facility] (20 sources) exenatide; Translations: [exenatide] Drug Allergy 12-28-19 13 Nausea Only, Rash [facility] (20 sources) Prochlorperazine; Translations: [prochlorperazine] Drug Allergy 06-25-19 22 Cramping of the Muscles [facility] (20 sources) Sucralfate; Translations: [sucralfate] Drug Allergy 12-22-19 20 Other [facility] (20 sources) traZODone; Translations: [trazodone] Drug Allergy 12-19-19 20 Nausea Only, GI intolerance [facility] (20 sources) Iodinated Contrast Media; Translations: [Iodinated Contrast Media] Allergy [facility]-07-[facility] (2 sources) Clindamycin; Translations: [clindamycin] [facility] [place] [facility] (2 sources) Penicillins; Translations: [Penicillins] Allergy to drug (finding) [facility] [place] [facility] Work Phone: (1 source) Clindamycin Drug Allergy 06-25-19 22 [facility] Repository (1 source) Penicillins Drug allergy (disorder) 06-25-19 [facility] Rep[facility] (1 source) Clindamycin Drug Allergy [facility] (1 source) cyclobenzaprine Drug Allergy [facility] (1 source) Levamisole Drug Allergy 12-03-19 21 [facility] (1 source) liraglutide Drug Allergy 07-16-19 22 [facility] (1 source) Prochlorperazine Drug Allergy [facility] Repository (2 sources) Trivora (28) Drug allergy (disorder) [facility] (1 source) Misc-Drug Drug allergy (disorder) [facility] (17 sources) Codeine Drug Allergy 12-28-19 22 Hives [facility] (17 sources) levoFLOXacin Drug Allergy 06-03-19 23 [facility] (17 sources) liraglutide Drug Allergy 05-17-19 23 Nausea Only [facility] (17 sources) Penicillins Drug Allergy 10-23-20 13 Itching, Hives, Rash [facility] (17 sources) Promethazine Drug Allergy 05-17-19 23 [facility] (17 sources) Ticagrelor Propensity to adverse reactions 06-03-19 23 [facility] Medications Current Medications Medication Drug Class(es) Dates Sig (Normalized) Sig (Original) acetaminophen 325 mg / HYDROcodone bitartrate 5 mg oral tablet (20 sources) Opioid Agonist Start: 02-25-2024 End: 03-26-2024 take 1 tablet by mouth four times daily as needed for pain HYDROcodone-acetamin ophen ([place]) 5-325 MG tablet Indications: Primary osteoarthritis of both knees Take 1 tablet by mouth 4 (four) times a day as needed for severe pain 90 tablet 02/25/2024 03/26/2024 Active Start: 09-24-2023 End: 02-25-2024 take 1 tablet by mouth three times daily as needed for pain HYDROcodone-acetaminophen ([place]) 5-325 MG tablet Indications: Primary osteoarthritis of both knees Take 1 tablet by mouth 3 (three) times a day as needed for severe pain 90 tablet 01/23/2024 02/25/2024 Discontinued Start: 06-24-2021 take 1 tablet by raheem th every eight hours Hydrocodone-Acetaminophen Active 1 TAB P O Q8H June 24, 2021 4:16am ALPRAZolam 0.5 mg oral tablet (18 sources) Benzodiazepine Start: 10-04-2023 take 1 tablet [...] 2021 4:16am amLODIPine 10 mg oral tablet (18 sources) Dihydropyridine Calcium Channel Tung Start: 02-21-2024 [...] 2021 4:16am aspirin 81 mg oral tablet (18 sources) Platelet Aggregation Inhibitor, Nonsteroidal Anti-inflammatory Drug Start: 06-24-2021 take 81 mg by mouth once daily Aspirin Active 81 MG PO Daily June 24, 2021 4:16am aspirin 81 MG ch ewable tablet Chew 81 mg in the morning. Active atorvastatin 80 mg oral tablet (19 sources) HMG-CoA Reductase Inhibitor Start: 05-18-2023 take 1 tablet by mouth once daily at bedtime atorvastatin (Lipitor) 80 MG tablet Indications: Dyslipidemia (CMS/HCC) TAKE 1 TABLET BY MOUTH EVERYDAY AT BEDTIME 90 tablet 3 05/18/2023 Active Start: 06-24-2021 take 80 mg by mouth at bedtime Atorvastatin Active 80 MG PO Bedtime June 24, 2021 4:10pm Start: 06-24-2021 End: 06-25-2021 take 40 mg by mouth at bedtime Atorvastatin Discontinu ed 40 MG PO Bedtime June 24, 2021 4:16am June 25, 2021 11:27am Blood Glucose Monitoring Suppl (ONE TOUCH ULTRA 2) w/Device kit (2 sources) Start: 03-20-2024 Blood Glucose Monitoring Suppl (ONE TOUCH ULTRA 2) w/Device kit Indications: Type 2 diabetes mellitus with hyperglycemia, without long-term current use of insulin (CMS/HCC) 1 each Daily 1 kit 03/20/2024 Active 24 hr buPROPion hydrochloride 150 mg extended release oral tablet (18 sources) Aminoketone Start: 02-21-2024 take 1 tablet [...] by mouth in the morning. Active carvedilol 25 mg oral tablet (18 sources) alpha-Adrenergic Tung, beta-Adrenergic Tung Start: 03-31-2024 take 1 tablet by mouth in the morning carvedilol (Coreg) 25 MG tablet Indications: Benign essential hypertension (CMS/HCC) Take 1 tablet (25 mg) by mouth in the morning and 1 tablet (25 mg) in the evening. Take with meals. 60 tablet 5 03/31/2024 Active Start: 06-24-2021 take 12.5 mg by mout h twice daily at mealtime Carvedilol Active 12.5 MG PO Twice daily with meals 60 June 24, 2021 4:10pm cefdinir 300 mg oral capsule (1 [...] 03/21/2024 Active cholecalciferol 0.025 mg oral tablet (17 sources) Vitamin D Start: 03-24-2024 take 1 [...] 90 tablet 3 03/20/2023 Active Continuous Glucose Crm Architect (Dexcom G7 Crm Architect) device (6 sources) Start: 02-29-2024 Continuous Glucose Crm Architect (Dexcom G7 Crm Architect) device Indications: Type 2 diabetes mellitus with hyperglycemia, without long-term current use of insulin (CMS/HCC) 1 each continuously 1 each 02/29/2024 Active Continuous Glucose Sensor (Dexcom G7 Sensor) misc (6 sources) Start: 02-29-2024 Continuous Glucose Sensor (Dexcom G7 Sensor) misc Indications: Type 2 diabetes mellitus with hyperglycemia, without long-term current use of insulin (CMS/HCC) 1 each continuously 1 each 11 02/29/2024 Active famotidine 40 mg oral tablet (17 sources) Histamine-2 Receptor Antagonist Start: 03-20-2023 take 1 tablet by mouth once daily famotidine (Pepcid) 40 MG tablet Indications: Gastroesophageal reflux disease without esophagitis TAKE 1 TABLET BY MOUTH EVERY DAY 90 tablet 3 03/20/2023 Active fluticasone propionate 0.05 mg/actuat metered dose nasal spray (18 sources) Corticosteroid Start: 10-31-2022 take 1 spray(s) nasal route once daily fluticasone (Flonase) 50 MCG/ACT nasal spray Indications: Upper respiratory tract infection, unspecified type SPRAY 1 SPRAY INTO EACH NOSTRIL DAILY 16 mL 2 10/31/2022 Active Start: 06-24-2021 Fluticasone Fu roate Active 2 INH INHALATION Daily June 24, 2021 4:16am furosemide 20 mg oral tablet (20 sources) Loop Diuretic Start: 11-12-2023 take 1 tablet by mouth once daily furosemide (Lasix) 20 MG tablet Indications: Chronic diastolic heart failure (CMS/HCC) Take 1 tablet (20 mg) by mouth Daily 90 tablet 3 11/12/2023 Active Start: 06-24-2021 End: 11-12-2023 take 40 mg by mouth once daily Furosemide Active 40 MG PO Daily June 24, 2021 4:16am hydrALAZINE hydrochloride 100 mg oral tablet (18 sources) Arteriolar Vasodilator Start: 02-21-2024 take 1 [...] 2021 4:16am methocarbamol 750 mg oral tablet (17 sources) Muscle Relaxant Start: 12-05-2021 methocarbamol (Robaxin) 750 MG tablet Take 750 mg by mouth in the morning and 750 mg at noon and 750 mg in the evening and 750 mg before bedtime. 12/05/2021 Active metoclopramide 5 mg oral tablet (17 sources) Dopamine-2 Receptor Antagonist Start: 10-29-2023 take 1 tablet by mouth four times daily metoclopramide (Reglan) 5 MG tablet Indications: Early satiety TAKE 1 TABLET BY MOUTH FOUR TIMES A DAY 120 tablet 5 10/29/2023 Active montelukast 10 mg oral tablet (18 sources) Leukotriene Receptor Antagonist Start: 04-19-2023 take [...] 2021 4:16am nystatin 100 unt/mg topical powder (19 sources) Polyene Antifungal Start: 11-12-2023 nystatin (M ycostatin) 478535 UNIT/GM powder Indications: Skin candidiasis Apply 1 application topically in the morning and 1 application in the evening and 1 application before bedtime. 60 g 3 11/12/2023 Active End: 11-12-2023 nystatin (Mycostatin) 253080 UNIT/GM powder Apply 100 application topically in the morning and 100 application in the evening and 100 application before bedtime. 11/12/2023 Discontinued (Reorder) ondansetron 4 mg disintegrating oral tablet (18 sources) Serotonin-3 Receptor Antagonist Start: 02-21-2023 ondansetron ODT (Zofran-ODT) 4 MG disintegrating tablet Indications: Nausea DISSOLVE 1 TABLET ON THE TONGUE EVERY 6 HOURS NEEDED FOR NAUSEA/ VOMITING 56 tablet 2 02/21/2023 Active Start: 06-24-2021 take 4 mg by mouth e very six hours Ondansetron Active 4 MG PO Q6H June 24, 2021 4:16am pantoprazole 40 mg delayed release oral tablet (16 sources) Proton Pump Inhibitor Start: 02-04-2024 take [...] 4:16am PARoxetine hydrochloride 40 mg oral tablet (18 sources) Serotonin Reuptake Inhibitor Start: 11-08-2023 take [...] 2021 4:16am SITagliptin 25 mg oral tablet (17 sources) Dipeptidyl Peptidase 4 Inhibitor Start: 09-21-2023 take 1 tablet by mouth once daily Januvia 25 MG tablet Indications: Type 2 diabetes mellitus with hyperglycemia (CMS/HCC) TAKE 1 TABLET BY MOUTH EVERY DAY 90 tablet 1 09/21/2023 Active sucralfate 1000 mg oral tablet (17 sources) Aluminum Complex Start: 05-11-2023 take 1 [...] 11/19/2023 Active temazepam 15 mg oral capsule (20 sources) Benzodiazepine Start: 09-20-2023 End: 03-26-2024 take [...] 4:10pm zinc oxide 0.3 mg/mg topical ointment (2 sources) Start: 03-20-2024 Zinc Oxide (Pi nxav) 30 [...] 2021 11:27am nitroglycerin 0.4 mg sublingual tablet (20 sources) Nitrate Vasodilator Start: 06-24-2021 Nitroglycerin 0.4 [...] Coronary arteriosclerosis; Translations: [Atherosclerotic heart disease of [place] coronary artery without angina pectoris] Onset: [...] 06-24-2021 Chronic Genitourinary symptoms and ill-defined conditions (17 sources) Overflow incontinence of urine; Translations: [Overflow [...] Translations: [Chest pain, unspecified] Episodic Nutritional deficiencies (18 sources) Vitamin D deficiency, unspecified; Translations: [Vitamin [...] 3 Chronic Other aftercare (2 sources) Other prison (current) drug therapy; Translations: [OTH SKILLED NURSING CURRENT DRUG THERAPY] Onset: 3 Episodic Other aftercare (1 source) long term care social worker (current) use of aspirin; Translations: [HEARING SPECIALIST CURRENT USE OF ASPIRIN] Onset: 3 Episodic Other and ill-defined cerebrovascular disease (17 sources) Cerebrovascular disease; Translations: [Cerebrovascular disease, unspecified] [...] Onset: 2 Chronic Other nervous system disorders (17 sources) Arachnoid cyst; Translations: [Cerebral cysts] Onset: [...] Onset: 3 Chronic Other non-traumatic joint disorders (8 sources) Pain in elbow; Translations: [Pain in [...] Chronic Other nutritional; endocrine; and metabolic disorders (8 sources) Obesity caused by energy imbalance; Translations: [...] Onset: 08-31-2021 Episodic Fluid and electrolyte disorders (19 sources) Dehydration; Translations: [Hypokalemia] Onset: 07-21-2021 03-13-2023 Episodic Nausea and vomiting (8 sources) Nausea with vomiting, unspecified; Translations: [Nausea] Onset: 08-16-2021 Episodic Other aftercare (1 source) custodial (current) use of oral hypoglycemic drugs; Translations: [HEARING SPECIALIST USE ORAL HYPOGLYCEMIC DX] Onset: 08-18-2021 Episodic Other aftercare (20 sources) Long-term current use of drug therapy; Translations: [Other watermaster (current) drug therapy] Onset: 03-13-2023 03-13-2023 Episodic Other connective tissue disease (20 sources) Fibromyalgia; Translations: [Fibromyalgia] Onset: 03-13-2023 06-24-2021 Episodic Other gastrointestinal disorders (1 source) Diarrhea, unspecified; Translations: [DIARRHEA UNSPECIFIED] Onset: 08-30-2021 Episodic Other gastrointestinal disorders (17 sources) Chronic constipation; Translations: [Other constipation] Onset: [...] SATIETY] Onset: 09-09-2021 Episodic Urinary tract infections (20 sources) Urinary tract infection, site not specified; Translations: [Acute urinary tract infection] Onset: 08-18-2021 Resolved: 02-29-2024 11-12-2023 Episodic Results Test Name Value Interpretation Reference Range Facility BASIC METABOLIC PANLon 03-19 Anion gap [Moles/Vol] 10 mmol/L Normal 5-15 [facility] Comment on above: Performed By: #### B MP, LIVR, 3016-3, CBCA #### [facility] ([id number]) [address] [place] [address] #### 89115-8, HA1C #### [facility] ([id number]) [address], [address] [place] [address] Calcium [Mass/Vol] 9.2 mg/dL Normal 8.5-10.5 [facility] Comment on above: Performed By: #### B MP, LIVR, 3016-3, CBCA #### [facility] ([id number]) [address] [place] [address] 13125 #### 08381-1, HA1C #### [facility] ([id number]) [address], [address] [place] [address] Chloride [Moles/Vol] 102 mmol/L Normal 98-109 [facility] Comment on above: Performed By: #### B ELAN, LIVR, 3, CBCA #### [facility] ([id number]) [address] [place] [address] #### 07744-2, HA1C #### [facility] ([id number]) [address], [address] [place] [address] CO2 [Moles/Vol] 25 mmol/L Normal 22-32 [facility] Comment on above: Performed By: #### B ELAN, LIVR, 3, CBCA #### [facility] ([id number]) [address] [place] [address]237 #### 73102-8, HA1C #### [facility] ([id number]) [address], [address] [place] [address] Creatinine [Mass/Vol] 1.42 mg/dL High 0.40-1.00 [facility] Comment on above: Result Comment: METH OD TRACEABLE TO IDMS STANDARD Performed By: #### B ELAN, ZACH, 3015-04, CBCA #### [facility] ([id number]) [address] [place] [address]203 #### 92658-2, HA1C #### [facility] ([id number]) [address], [address] [place] [address] GFR/1.73 sq M.predicted among non-blacks MDRD (S/P/Bld) [Vol rate/Area] 38 mL/min/{1.73_m2} Low >59 [facility] Comment on above: Result Comment: Reported eGFR is based on the CKD-EPI 2020 equation that does not use a race coefficient. Performed By: #### B ELAN, LIVR, 3015-3, CBCA #### [facility] ([id number]) [address] [place] [address] #### 87615-8, HA1C #### [facility] ([id number]) [address], [address] [place] [address] Glucose [Mass/Vol] 261 mg/dL High 65-99 [facility] Comment on above: Performed By: #### B ELAN, LIVR, 3016-3, CBCA #### [facility] ([id number]) [address] [place] [address]7581 #### 22641-3, HA1C #### [facility] ([id number]) [address], [address] [place] [address] Potassium [Moles/Vol] 3.7 mmol/L Normal 3.5-5.0 [facility] Comment on above: Performed By: #### B ELAN, LIVR, 6-3, CBCA #### [facility] ([id number]) [address] [place] [address] 12856 #### 30605-7, HA1C #### [facility] ([id number]) [address], [address] [place] [address] Sodium [Moles/Vol] 137 mmol/L Normal 134-146 [facility] Comment on above: Performed By: #### B ELAN, LIVR, 6-3, CBCA #### [facility] ([id number]) [address] [place] [address] 95400 #### 93867-9, HA1C #### [facility] ([id number]) [address], [address] [place] [address] Urea nitrogen [Mass/Vol] 28 mg/dL High 5-27 [facility] Comment on above: Performed By: #### B ELAN, LIVR, 3016-3, CBCA #### [facility] ([id number]) [address] [place] [address] 15593 #### 90230-5, HA1C #### [facility] ([id number]) [address], [address] [place] [address] CBC AND AUTO DIFFon 03-19-19 25 ABSOLUTE BASOPHIL 0.1 X10E9/L Normal 0.0-0.2 [facility] Comment on above: Performed By: #### B MP, LIVR, 3016-3, CBCA #### [facility] ([id number]) [address] [place] [address] 52851 #### 08797-2, HA1C #### [facility] ([id number]) [address] [facility], [address] [place] [address] ABSOLUTE NEUTROPHIL 4.9 X10E9/L Normal 1.5-6.6 [facility] Comment on above: Performed By: #### B ELAN, LIVR, 3016-3, CBCA #### [facility] ([id number]) [address] [place] [address] 75875 #### 60632-2, HA1C #### [facility] ([id number]) [address] [place] [address], [address] [place] [address] Basophils/100 WBC (Bld) 1.1 % Normal [facility] Comment on above: Performed By: #### B MP, LIVR, 3016-3, CBCA #### [facility] ([id number]) [address] [place] [address] 95231 #### 76216-8, HA1C #### [facility] ([id number]) [address] [place] [address], [address] [place] [address] Eosinophils (Bld) [#/Vol] 0.3 10*3/uL Normal 0.0-0.4 [facility] Comment on above: Performed By: #### B MP, LIVR, 3016-3, CBCA #### [facility] ([id number]) [address] [place] [address] 42971 #### 72289-6, HA1C #### [facility] ([id number]) [address] [facility], [address] [place] [address] Eosinophils/100 WBC (Bld) 4.2 % Normal [facility] Comment on above: Performed By: #### B ZACH ANSARI, 3015-, CBCA #### [facility] ([id number]) [address] [place] [address] 14719 #### 81216-0, HA1C #### [facility] ([id number]) [address] [facility], [address] [place] [address] Erythrocyte distribution width (RBC) [Ratio] 13.1 % Normal 11.5-15.0 [facility] Comment on above: Performed By: #### B ZACH ANSARI, 3015-04, CBCA #### [facility] ([id number]) [address] [place] [address] 15856 #### 28849-3, HA1C #### [facility] ([id number]) [address] [facility], [address] [address] Hematocrit (Bld) [Volume fraction] 36.8 % Normal 35-47 [facility] Comment on above: Performed By: #### B ZACH ANSARI, 3015-04, CBCA #### [facility] ([id number]) [address] [place] [address] 54796 #### 46764-5, HA1C #### [facility] ([id number]) [address], [address] [place] [address] Hemoglobin (Bld) [Mass/Vol] 12.2 g/dL Normal 11.7-15.5 [facility] Comment on above: Performed By: #### B ELAN, LIVR, 3015-04, CBCA #### [facility] ([id number]) [address] [place] [address] 47057 #### 62201-4, HA1C #### [facility] ([id number]) [address], [address] [place] [address] Lymphocytes (Bld) [#/Vol] 1.0 10*3/uL Normal 1.0-3.5 [facility] Comment on above: Performed By: #### B ELAN, LIVR, 3015-04, CBCA #### [facility] ([id number]) [address] [place] [address] 78655 #### 25627-5, HA1C #### [facility] ([id number]) [address] [facility], [address] [place] [address] Lymphocytes/100 WBC (Bld) 14.0 % Normal [facility] Comment on above: Performed By: #### Mary ANSARI, LIVR, 3, CBCA #### [facility] ([id number]) [address] [place] [address] #### 69259-8, HA1C #### [facility] ([id number]) [address] [facility], [address] [place] [address] MCH (RBC) [Entitic mass] 30.3 pg Normal 27-34 [facility] Comment on above: Performed By: #### Mary ANSARI, LIVR, 3, CBCA #### [facility] ([id number]) [address] [place] [address] 97917 #### 87434-9, HA1C #### [facility] ([id number]) [address] [facility], [address] [place] [address] MCHC (RBC) [Mass/Vol] 33.3 g/dL Normal 32-36 [facility] Comment on above: Performed By: #### B MP, LIVR, 3016-3, CBCA #### [facility] ([id number]) [address] [place] [address]142 #### 73744-0, HA1C #### [facility] ([id number]) [address], [address] [place] [address] MCV (RBC) [Entitic vol] 91 fL Normal 80-100 [facility] Comment on above: Performed By: #### B MP, LIVR, 3, CBCA #### [facility] ([id number]) [address] [place] [address] 64237 #### 16986-4, HA1C #### [facility] ([id number]) [address], [address] [place] [address] Monocytes (Bld) [#/Vol] 0.6 10*3/uL Normal 0-0.9 [facility] Comment on above: Performed By: #### B ELAN, LIVR, 3015-04, CBCA #### [facility] ([id number]) [address] [place] [address]84 #### 14904-3, HA1C #### [facility] ([id number]) [address], [address] [place] [address] Monocytes/100 WBC (Bld) 9.2 % Normal [facility] Comment on above: Performed By: #### B MP, LIVR, 3015-04, CBCA #### [facility] ([id number]) [address] [place] [address] #### 10324-6, HA1C #### [facility] ([id number]) [address], [address] [place] [address] Neutrophils/100 WBC (Bld) 71.5 % Normal [facility] Comment on above: Performed By: #### B MP, LIVR, 3015-3, CBCA #### [facility] ([id number]) [address] [place] [address] #### 04262-5, HA1C #### [facility] ([id number]) [address], [address] [place] [address] Platelet mean volume (Bld) [Entitic vol] 9.6 fL Normal 7-12 [facility] Comment on above: Performed By: #### B MP, LIVR, 3016-3, CBCA #### [facility] ([id number]) [address] [place] [address]34 #### 04479-3, HA1C #### [facility] ([id number]) [address], [address] [place] [address] Platelets (Bld) [#/Vol] 241 10*3/uL Normal 150-450 [facility] Comment on above: Performed By: #### B MP, LIVR, 3016-3, CBCA #### [facility] ([id number]) [address] [place] [address] 99303 #### 18702-5, HA1C #### [facility] ([id number]) [address], [address] [place] [address] RBC COUNT 4.04 X10E12/L Normal 3.80-5.20 [facility] Comment on above: Performed By: #### B MP, LIVR, 3016-3, CBCA #### [facility] ([id number]) [address] [place] [address]12 #### 45656-3, HA1C #### [facility] ([id number]) [address], [address] [place] [address] WBC (Bld) [#/Vol] 6.8 10*3/uL Normal 4.0-11.0 [facility] Comment on above: Performed By: #### B ELAN, LIVCrystal, 3016-3, CBCA #### [facility] ([id number]) [address] [place] [address] 33362 #### 05193-9, HA1C #### [facility] ([id number]) [address], [address] [place] [address] HGB A1C (GLYCO-HGB)on 2024 Glucose [Mass/Vol] 246 mg/dL Normal [facility] Comment on above: Performed By: #### B ELAN, LIVR, 3016-3, CBCA #### [facility] ([id number]) [address] [place] [address]508 #### 26651-9, HA1C #### [facility] ([id number]) [address], [address] [place] [address] HbA1c (Bld) [Mass fraction] 10.2 % High 4.4-5.6 [facility] Comment on above: Result Comment: NOTE ADA Guidelines Result HgbA1c Normal : less than 5.7 % Prediabetes : 5.7 % to 6.4 % Diabetes : > 6.4 % Use with caution in patients with abnormal hemoglobin variants as the half-life of red blood cells and in vivo glycation rates are affected. Performed By: #### B ELAN, LIVR, 6-3, CBCA #### [facility] ([id number]) [address] [place] [address]7619 #### 33824-3, HA1C #### [facility] ([id number]) [address], [address] [place] [address] LIVER PANELon 03-19-2024 Albumin [Mass/Vol] 3.2 g/dL Normal 3.2-5.3 [facility] Comment on above: Performed By: #### B MP, LIVR, 3016-3, CBCA #### [facility] ([id number]) [address] [place] [address] 91926 #### 76878-4, HA1C #### [facility] ([id number]) [address], [address] [place] [address] ALP [Catalytic activity/Vol] 62 U/L Normal 39-130 [facility] Comment on above: Performed By: #### B MP, LIVR, 3016-3, CBCA #### [facility] ([id number]) [address] [place] [address] 77327 #### 73608-1, HA1C #### [facility] ([id number]) [address], [address] [place] [address] ALT [Catalytic activity/Vol] 23 U/L Normal 0-31 [facility] Comment on above: Performed By: #### Mary MP, LIVR, 3016-3, CBCA #### [facility] ([id number]) [address] [place] [address] 11382 #### 48390-4, HA1C #### [facility] ([id number]) [address], [address] [place] [address] AST [Catalytic activity/Vol] 18 U/L Normal 0-41 [facility] Comment on above: Performed By: #### B MP, LIVR, 3016-3, CBCA #### [facility] ([id number]) [address] [place] [address] 64611 #### 75825-9, HA1C #### [facility] ([id number]) [address], [address] [place] [address] Bilirubin [Mass/Vol] 0.9 mg/dL Normal 0.3-1.2 [facility] Comment on above: Performed By: #### B ELAN, LIVR, 3015-3, CBCA #### [facility] ([id number]) [address] [place] [address] 91794 #### 57969-6, HA1C #### [facility] ([id number]) [address] [facility], [address] [place] [address] Bilirubin.direct [Mass/Vol] 0.1 mg/dL Normal 0.0-0.4 [facility] Comment on above: Performed By: #### B ELAN, LIVR, 3, CBCA #### [facility] ([id number]) [address] [place] [address] 20594 #### 77764-7, HA1C #### [facility] ([id number]) [address] [facility], [address] [place] [address] Protein [Mass/Vol] 6.6 g/dL Normal 6.0-8.0 [facility] Comment on above: Performed By: #### B ELAN, LIVR, 3, CBCA #### [facility] ([id number]) [address] [place] [address] #### 31730-9, HA1C #### [facility] ([id number]) [address] [facility], [address] [place] [address] Lipid 1996 panelon 5 Cholesterol [Mass/Vol] 156 mg/dL Normal 150-200 [facility] Comment on above: Performed By: #### B ELAN, LIVR, 3015-3, CBCA #### [facility] ([id number]) [address] [place] [address] 68667 #### 49799-1, HA1C #### [facility] ([id number]) [address] [facility], [address] [place] [address] Cholesterol in HDL [Mass/Vol] 59 mg/dL Normal >39 [facility] Comment on above: Result Comment: HDL <40 mg/dL - High Risk HDL > or = 40mg/dL- Desirable HDL >60 mg/dL - Negative Risk Performed By: #### ZACH Hernandez MP, 3015-3, CBCA #### [facility] ([id number]) [address] [place] [address] 86661 #### 02366-5, HA1C #### [facility] ([id number]) [address] [facility], [address] [place] [address] Cholesterol in LDL [Mass/Vol] 66 mg/dL Normal <130 [facility] Comment on above: Result Comment: LDL <100 mg/dL - Desirable LDL >160 mg/dL - High Risk Performed By: ###ZACH Solis MP, 63, CBCA #### [facility] ([id number]) [address] [place] [address] 31898 #### 24988-4, HA1C #### [facility] ([id number]) [address] [facility], [address] [place] [address] Cholesterol in VLDL [Mass/Vol] 31 mg/dL High 0-30 [facility] Comment on above: Performed By: ###ZACH Solis MP, 6-3, CBCA #### [facility] ([id number]) [address] [place] [address] 04984 #### 48008-9, HA1C #### [facility] ([id number]) [address] [facility], [address] [place] [address] CHOLESTEROL:HDL 2.6 Normal 1.0-5.0 [facility] Comment on above: Performed By: #### ZACH Hernandez MP, 3016-3, CBCA #### [facility] ([id number]) [address] [place] [address] 79257 #### 18724-8, HA1C #### [facility] ([id number]) [address] [facility], [address] [place] [address] Triglyceride [Mass/Vol] 156 mg/dL High 27-150 [facility] Comment on above: Performed By: #### ZACH Hernandez MP, 3016-3, CBCA #### [facility] ([id number]) [address] [place] [address] 75209 #### 24884-5, HA1C #### [facility] ([id number]) [address] [facility] [facility] [address] [place] [address] MICROALBUMIN - ALBUMIN:CREAT ININE URINE RATIOon 03-19-2024 ALB/CREAT RATIO 3668.3 mg/g creat High 0.0-30.0 [facility] Comment on above: Performed By: #### M ALBU #### [facility] ([id number]) [address] [facility] [address] [place] [address] Albumin DL <= 20 mg/L (U) [Mass/Vol] 243.1 mg/dL High 0.0-1.9 [facility] Comment on above: Performed By: #### M ALBU #### [facility] ([id number]) [address] [facility] [address] [place] [address] URINE CREAT 66.27 mg/dL Normal [facility] Comment on above: Performed By: #### M ALBU #### [facility] ([id number]) [address] [facility], [address] [place] [address] TSH Qnon 01-29-2025 TSH 2.19 uIU/mL Normal 0.49-4.67 [facility] Comment on above: Performed By: #### B ELAN LIVCrystal, 3016-3, CBCA #### [facility] ([id number]) [address] [facility] [place] [address] #### 36931-3, HA1C #### [facility] ([id number]) [address] [facility], [address] [place] [address] ALL CBC WITH AUTO DIFFon BASOPHILS ABSOLUTE AUTO 0 [facility] Basophils/100 WBC (Bld) 0.4 % 0.2 - 2.0 % [facility] Eosinophils/100 WBC (Bld) 1.8 % 0.9 - 7.0 % [facility] Erythrocyte distribution width (RBC) [Ratio] 12.4 % 11.0 - 15.0 % [facility] Hematocrit (Bld) [Volume fraction] 37.5 % 36.0 - 48.0 % [facility] Hemoglobin (Bld) [Mass/Vol] 12 g/dL 12.0 - 16.0 g/dL [facility] IMMATURE GRANULOCYTES ABS AUTO 0.03 [facility] Immature granulocytes/100 WBC (Bld) 0.3 % 0.0 - 0.5 % [facility] Interpretation and review of laboratory results Abnormal [facility] LYMPHOCYTES ABSOLUTE AUTO 1 Low [facility] Lymphocytes/100 WBC (Bld) 11.2 % Low 20.5 - 60.0 % [facility] MCH (RBC) [Entitic mass] 30.6 pg 26.7 - 34.0 pg [facility] MCHC (RBC) [Mass/Vol] 32 g/dL 29.9 - 35.2 g/dL [facility] MCV (RBC) [Entitic vol] 95.7 fL 81.0 - 99.0 fL [facility] MONOCYTES ABSOLUTE AUTO 0.7 [facility] Monocytes/100 WBC (Bld) 7.9 % 1.7 - 12.0 % [facility] NEUTROPHILS ABSOLUTE AUTO 7 High [facility] Neutrophils/100 WBC (Bld) 78.4 % High 43.0 - 75.0 % [facility] Platelet mean volume (Bld) [Entitic vol] 10.6 fL 9.5 - 13.5 fL [facility] EO # 0.2 [facility] PLT 233 [facility] RBC 3.92 Low [facility] WBC 9 [facility] URINE CULTURE, ROUTINEon Bacteria identified Cx Nom (U) Urine Culture, Routine [facility] Bacteria identified [facility] (U) No growth [facility] Bacteria identified Cx Nom (U) Performed at: - [facility] Bacteria identified Cx Nom (U) [address], [place] [id number] [facility] Bacteria identified Cx Nom (U) Range Scientist: Best Garcia PhD, Phone: [phone] [facility] Office Visiton 08-20-2023 Follow-up visit [id number] YueIrma 1945 F Date Provider Department Center 08/20/2023 CAROLINA MARCOS CHARLES Arnold Family History Problem Relation Age of Onset Breast cancer Mother Stroke Father Family Status - Relation Status Age at Mother Father Level of Service:81041 [place] OFFICE/OUTPATIENT ESTABLISHED MOD MDM 30 MIN Normal [facility] 36on 03-05-2023 36 Please let her know her recent carotid ultrasound showed things were stable. Plan for a follow-up ultrasound in 1 year. Follow-up in 6 months. Thanks! Normal [facility] Telephoneon 03-05-2023 Telephone [id number] Irma Turner 1945 [facility] Provider Department Center 03/05/2023 CHRISTOPHER SHIN Family History Problem Relation Age of Onset Breast cancer Mother Stroke Father Family Status - Relation Status Age at Mother Father Normal [facility] Office Visiton 01-31-2023 Follow-up visit [id number] Irma Turner 1945 [facility] Provider Department Center 01/31/2023 CHRISTOPHER SHIN Family History Problem Relation Age of Onset Breast cancer Mother Stroke Father Family Status - Relation Status Age at Mother Father Level of Service:88540 [place] OFFICE/OUTPATIENT ESTABLISHED MOD MDM 30-39 MIN Reason for Visit and Comments: Congestive Heart Failure [127] Hypertension [785725] Carotid Artery Disease [453] Normal [facility] Consulton 08-29-2022 Consult [id number] YueImra morrisonjustin Isrrael 1945 F Date Provider Department Center 08/29/2022 CARMINA SAMANIEGO [facility] SURG [place] Family History Problem Relation Age of Onset Breast cancer Mother Stroke Father Family Status - Relation Status Age at Mother Father Level of Service:46410 [place] OFFICE/OUTPATIENT NEW MODERATE MDM 45-59 MINUTES Normal [facility] MRI BRAIN WO W CONon [...] LISSETTE VILLALOBOS Date: 2022-07-04 09:08 Normal [facility] CREATININEon 07-03-2022 Creatinine [Mass/Vol] 1.87 mg/dL Critically high 0.55-1.02 [facility] Comment on above: Performed By: #### U DORY #### [facility] [address] [place] [address] Dr. Gasper Garber EGFR-AF [place] 32 mL/min/1.73m2 Critically low >=60 [facility] Comment on above: Performed By: #### U ARMICR #### [facility] [address] [address] [address] Gasper Garber EGFR-NON AF [place] 26 mL/min/1.73m2 Critically low >=60 [facility] Comment on above: Performed By: #### U ARMICR #### [facility] [address] [address] [address] Gasper Garber UA (CLEAN/CATCH) MICROSCOPIC IF INDICATEon 05-26-2022 Bilirubin Ql (U) Negative Normal NEGATIVE [facility] Comment on above: Performed By: #### U ARMICR #### [facility] [address] [place] [address] Dr. Gasper Garber Clarity (U) CLEAR Normal CLEAR [facility] Comment on above: Performed By: #### U ARMICR #### [facility] [address] [place] [address] Dr. Gasper Garber Color (U) LT. YELLOW Normal YELLOW [facility] Comment on above: Performed By: #### U ARMICR #### [facility] [address] [place] [address] Dr. Gasper Garber Glucose Ql (U) Negative Normal NEGATIVE [facility] Comment on above: Performed By: #### U ARMICR #### [facility] [address] [place] [address] Dr. Gasper Garber Hemoglobin Ql (U) Negative Normal NEGATIVE [facility] Comment on above: Performed By: #### U ARMICR #### [facility] [address] [place] [address] Dr. Gasper Garber Ketones Ql (U) Negative Normal NEGATIVE [facility] Comment on above: Performed By: #### U ARMICR #### [facility] [address] [place] [address] Dr. Gasper Garber LEUKOCYTES Negative Normal NEGATIVE [facility] Comment on above: Performed By: #### U ARMICR #### [facility] [address] [place] [address] Dr. Gasper Garber Nitrite Ql (U) Negative Normal NEGATIVE [facility] Comment on above: Performed By: #### U ARMICR #### [facility] [address] [place] [address] Dr. Gasper Garber pH (U) 6.5 [pH] Normal 5-9 [facility] Comment on above: Performed By: #### U ARMICR #### [facility] [address] [place] [address] Dr. Gasper Garber SPEC GRAVITY 1.010 Normal 1.005-<=1.[address] [place] [address] Comment on above: Performed By: #### U ARMICR #### [facility] [address] [place] [address] Dr. Gasper Garber UA PROTEIN TRACE Normal NEGATIVE/ TRACE [facility] Comment on above: Performed By: #### U ARMICR #### [facility] [address] [place] [address] Dr. Gasper Garber UR MICRO IND NOT INDICATED Normal [facility] Comment on above: Performed By: #### U ARMICR #### [facility] [address] [place] [address] Dr. Gasper Garber Urobilinogen Qn (U) 0.2 {Kaushik'U}/dL Normal 0.2 - 1. 0 [facility] Comment on above: Performed By: #### U ARMICR #### [facility] [address] [place] [address] Dr. Gasper Garber CULTURE URINEon 05-16-2022 CULTURE [...] F Nitrofurantoin <=16 S F Normal [facility] Comment on above: Performed By: #### U RCX #### [facility] [address] [place] [address] Dr. Gasper Garber MAGNESIUMon 05-16-2022 Magnesium [Mass/Vol] 2.0 mg/dL Normal 1.8-2.4 [facility] Comment on above: Performed By: #### TONI MALDONADORO #### [facility] [address] [place] [address] Dr. Gasper Garber CBC AUTO DIFFon 05-15-2022 BASO # 0.0 103/ul Normal 0.0-0.1 [facility] Comment on above: Performed By: #### TONI MALDONADORO #### [facility] [address] [place] [address] Dr. Gasper Garber Basophils/100 WBC (Bld) 0.5 % Normal 0.2-2.0 [facility] Comment on above: Performed By: #### TONI MALDONADORO #### [facility] [address] [place] [address] Dr. Gasper Garber EO # 0.2 103/ul Normal 0.0-0.7 [facility] Comment on above: Performed By: #### TONI MALDONADORO #### [facility] [address] [place] [address] Dr. Gasper Garber Eosinophils/100 WBC (Bld) 1.8 % Normal 0.9-7.0 [facility] Comment on above: Performed By: #### TONI MALDONADORO #### [facility] [address] [place] [address] Dr. Gasper Garber Erythrocyte distribution width (RBC) [Ratio] 12.5 % Normal 11.0-15.0 [facility] Comment on above: Performed By: #### TONI MALDONADORO #### [facility] [address] [place] [address] Dr. Gasper Garber Hematocrit (Bld) [Volume fraction] 36.1 % Normal 36.0-48.0 [facility] Comment on above: Performed By: #### TONI MALDONADORO #### [facility] [address] [place] [address] Dr. Gasper Garber Hemoglobin (Bld) [Mass/Vol] 11.8 g/dL Critically low 12.0-16.0 [facility] Comment on above: Performed By: #### TONI MALDONADORO #### [facility] [address] [place] [address] Dr. Gasper Garber IG # 0.02 10e3/ul Normal 0.00-0.03 [facility] Comment on above: Performed By: #### JOANNE MALDONADOICRO #### [facility] [address] [place] [address] Dr. Gasper Garber IG % 0.2 % Normal 0.0-0.5 [facility] Comment on above: Performed By: #### TONI MALDONADORO #### [facility] [address] [place] [address] Dr. Gasper Garber LYMPH # 1.2 103/ul Normal 1.2-3.8 [facility] Comment on above: Performed By: #### TONI MALDONADORO #### [facility] [address] [place] [address] Dr. Gasper Garber Lymphocytes/100 WBC (Bld) 14.2 % Critically low 20.5-60.0 [facility] Comment on above: Performed By: #### JOANNE MALDONADOICRO #### [facility] [address] [place] [address] Dr. Gasper Garber MANUAL DIFF REQ NO Normal [facility] Comment on above: Performed By: #### JOANNE MALDONADOICRO #### [facility] [address] [place] [address] Dr. Gasper Garber MCH (RBC) [Entitic mass] 30.6 pg Normal 26.7-34.0 [facility] Comment on above: Performed By: #### JOANNE MALDONADOICRO #### [facility] [address] [place] [address] Dr. Gasper Garber MCHC (RBC) [Mass/Vol] 32.7 g/dL Normal 29.9-35.2 [facility] Comment on above: Performed By: #### Bernice HERNDON UMICRO #### [facility] [address] [place] [address] Dr. Gasper Garber MCV (RBC) [Entitic vol] 93.8 fL Normal 81.0-99.0 [facility] Comment on above: Performed By: #### Bernice HERNDON UMICRO #### [facility] [address] [place] [address] Dr. Gasper Garber MONO # 1.0 103/ul Critically high 0.3-0.8 [facility] Comment on above: Performed By: #### Bernice HERNDON UMICRO #### [facility] [address] [place] [address] Dr. Gasper Garber Monocytes/100 WBC (Bld) 12.3 % Critically high 1.7-12.0 [facility] Comment on above: Performed By: #### Bernice HERNDON UMICRO #### [facility] [address] [place] [address] Dr. Gasper Garber NEUT # 5.9 103/ul Normal 1.4-6.5 [facility] Comment on above: Performed By: #### Bernice HERNDON UMICRO #### [facility] [address] [place] [address] Dr. Gasper Garber Neutrophils/100 WBC (Bld) 71.0 % Normal 43.0-75.0 [facility] Comment on above: Performed By: #### Bernice HERNDON UMICRO #### [facility] [address] [place] [address] Dr. Gasper Garber Platelet mean volume (Bld) [Entitic vol] 11.3 fL Normal 9.5-13.5 [facility] Comment on above: Performed By: #### Bernice HERNDON UMICRO #### [facility] [address] [place] [address] Dr. Gasper Garber PLT 237 103/ul Normal 150-450 [facility] Comment on above: Performed By: #### Bernice HERNDON UMICRO #### [facility] [address] [place] [address] Dr. Gasper Garber RBC 3.85 106/ul Critically low 4.20-5.40 [facility] Comment on above: Performed By: #### TONI MALDONADORO #### [facility] [address] [address] [address] Gasper Garber WBC 8.4 103/ul Normal 4.0-11.0 [facility] Comment on above: Performed By: #### Bernice HERNDON UMICRO #### [facility] [address] [place] [address] Dr. Gasper Garber MAGNESIUMon 05-15-2022 Magnesium [Mass/Vol] 2.0 mg/dL Normal 1.8-2.4 [facility] Comment on above: Performed By: #### JOANNE MALDONADOICRO #### [facility] [address] [place] [address] Dr. Gasper Garber PROF 14(COMP METB)on 023 Albumin [Mass/Vol] 3.4 g/dL Normal 3.4-5.0 [facility] Comment on above: Performed By: #### Bernice HERNDON UMICRO #### [facility] [address] [place] [address] Dr. Gasper Garber Albumin/Globulin [Mass ratio] 1.0 {ratio} Normal [facility] Comment on above: Performed By: #### Bernice HERNDON UMICRO #### [facility] [address] [place] [address] Dr. Gasper Garber ALP [Catalytic activity/Vol] 70 U/L Normal 46-116 [facility] Comment on above: Performed By: #### Bernice HERNDON UMICRO #### [facility] [address] [place] [address] Dr. Gasper Garber ALT [Catalytic activity/Vol] 23 U/L Normal 14-59 [facility] Comment on above: Performed By: #### Bernice HERNDON UMICRO #### [facility] [address] [place] [address] Dr. Gasper Garber Anion gap [Moles/Vol] 12.2 mmol/L Normal [facility] Comment on above: Performed By: #### TONI MALDONADORO #### [facility] [address] [place] [address] Dr. Gasper Garber AST [Catalytic activity/Vol] 13 U/L Critically low 15-37 [facility] Comment on above: Performed By: #### TONI MALDONADORO #### [facility] [address] [place] [address] Dr. Gasper Garber Bilirubin [Mass/Vol] 0.6 mg/dL Normal 0.2-1.0 [facility] Comment on above: Performed By: #### Bernice HERNDON UMICRO #### [facility] [address] [place] [address] Dr. Gasper Garber Calcium [Mass/Vol] 9.6 mg/dL Normal 8.5-10.1 [facility] Comment on above: Performed By: #### Bernice HERNDON UMICRO #### [facility] [address] [place] [address] Dr. Gasper Garber Chloride [Moles/Vol] 106 mmol/L Normal 98-107 [facility] Comment on above: Performed By: #### TONI MALDONADORO #### [facility] [address] [place] [address] Dr. Gasper Garber CO2 [Moles/Vol] 29.0 mmol/L Normal 21.0-32.0 [facility] Comment on above: Performed By: #### Bernice HERNDON UMICRO #### [facility] [address] [place] [address] Dr. Gasper Garber Creatinine [Mass/Vol] 1.46 mg/dL Critically high 0.55-1.02 [facility] Comment on above: Performed By: #### Bernice HERNDON UMICRO #### [facility] [address] [place] [address] Dr. Gasper Garber EGFR-AF [place] 42 mL/min/1.73m2 Critically low >=60 [facility] Comment on above: Performed By: #### Bernice HERNDON UMICRO #### [facility] [address] [place] [address] Dr. Gasper Garber EGFR-NON AF [place] 35 mL/min/1.73m2 Critically low >=60 [facility] Comment on above: Performed By: #### TONI MALDONADORO #### [facility] [address] [place] [address] Dr. Gasper Garber Globulin (S) [Mass/Vol] 3.3 g/dL Normal [facility] Comment on above: Performed By: #### Bernice HERNDON UMICRO #### [facility] [address] [place] [address] Dr. Gasper Garber Glucose [Mass/Vol] 154 mg/dL Critically high 74-106 [facility] Comment on above: Performed By: #### Bernice HERNDON UMICRO #### [facility] [address] [place] [address] Dr. Gasper Garber Potassium [Moles/Vol] 3.2 mmol/L Critically low 3.5-5.1 [facility] Comment on above: Performed By: #### Bernice HERNDON UMICRO #### [facility] [address] [place] [address] Dr. Gasper Garber Protein [Mass/Vol] 6.7 g/dL Normal 6.4-8.2 [facility] Comment on above: Performed By: #### Bernice HERNDON UMICRO #### [facility] [address] [place] [address] Dr. Gasper Garber Sodium [Moles/Vol] 144 mmol/L Normal 136-145 [facility] Comment on above: Performed By: #### Bernice HERNDON, UMICRO #### [facility] [address] [place] [address] Dr. Gasper Garber Urea nitrogen [Mass/Vol] 28.0 mg/dL Critically high 7.0-18.0 [facility] Comment on above: Performed By: #### Bernice HERNDON, UMICRO #### [facility] [address] [place] [address] Dr. Gasper Garber Urea nitrogen/Creatinine [Mass ratio] 19.2 mg/mg Normal [facility] Comment on above: Performed By: #### E BERNIE HERNDON #### [facility] [address] [place] [address] Dr. Gasper Garber BNPon 05-14-2022 Natriuretic peptide B (Bld) [Mass/Vol] 1231.0 pg/mL Critically high <=900.0 [facility] Comment on above: Performed By: #### L ACT #### [facility] [address] [place] [address] Dr. Gasper Garber CARDIAC SEKOU ADMITon 023 CK [Catalytic activity/Vol] 30 U/L Normal 26-192 [facility] Comment on above: Performed By: #### L ACT #### [facility] [address] [place] [address] Dr. Gasper Garber CK.MB [Mass/Vol] 0.54 ng/mL Normal <=3.60 [facility] Comment on above: Performed By: #### L ACT #### [facility] [address] [place] [address] Dr. Gasper Garber HSTROP 9.8 pg/mL Normal 4.0-51.3 [facility] Comment on above: Result Comment: CUT- OFF POINTS HAVE BEEN ESTABLISHED BASED ON THE FOURTH UNIVERSAL DEFINITIONS OF MYOCARDIAL INFARCTION. THE UPPER REFERENCE LIMIT (URL) OF TROPONIN, DEFINED THE 99TH PERCENTILE OF cTnI DISTRIBUTION IN A REFERENCE POPULATION, HAS BEEN CONFIRMED THE DECISION THRESHOLD FOR [place] DIAGNOSIS. Performed By: #### L ACT #### [facility] [address] [place] [address] Dr. Gasper Garber JUSTIN 62 ng/mL Normal 9-82 [facility] Comment on above: Performed By: #### L ACT #### [facility] [address] [place] [address] Dr. Gasper Garber CBC AUTO DIFFon 05-14-2022 BASO # 0.0 103/ul Normal 0.0-0.1 [facility] Comment on above: Performed By: #### U ARMICR #### [facility] [address] [place] [address] Dr. Gasper Garber Basophils/100 WBC (Bld) 0.4 % Normal 0.2-2.0 [facility] Comment on above: Performed By: #### U ARMICR #### [facility] [address] [place] [address] Dr. Gasper Garber EO # 0.2 103/ul Normal 0.0-0.7 [facility] Comment on above: Performed By: #### U ARMICR #### [facility] [address] [place] [address] Dr. Gasper Garber Eosinophils/100 WBC (Bld) 2.4 % Normal 0.9-7.0 [facility] Comment on above: Performed By: #### U ARMICR #### [facility] [address] [place] [address] Dr. Gasper Garber Erythrocyte distribution width (RBC) [Ratio] 12.7 % Normal 11.0-15.0 [facility] Comment on above: Performed By: #### U ARMICR #### [facility] [address] [place] [address] Dr. Gasper Garber Hematocrit (Bld) [Volume fraction] 36.4 % Normal 36.0-48.0 [facility] Comment on above: Performed By: #### U ARMICR #### [facility] [address] [place] [address] Dr. Gasper Garber Hemoglobin (Bld) [Mass/Vol] 11.7 g/dL Critically low 12.0-16.0 [facility] Comment on above: Performed By: #### U ARMICR #### [facility] [address] [place] [address] Dr. Gasper Garber IG # 0.03 10e3/ul Normal 0.00-0.03 [facility] Comment on above: Performed By: #### U ARMICR #### [facility] [address] [place] [address] Dr. Gasper Garber IG % 0.3 % Normal 0.0-0.5 [facility] Comment on above: Performed By: #### U ARMICR #### [facility] [address] [place] [address] Dr. Gasper Garber LYMPH # 1.9 103/ul Normal 1.2-3.8 [facility] Comment on above: Performed By: #### U ARMICR #### [facility] [address] [place] [address] Dr. Gasper Garber Lymphocytes/100 WBC (Bld) 20.2 % Critically low 20.5-60.0 [facility] Comment on above: Performed By: #### U ARMICR #### [facility] [address] [place] [address] Dr. Gasper Garber MANUAL DIFF REQ NO Normal [facility] Comment on above: Performed By: #### U ARMICR #### [facility] [address] [place] [address] Dr. Gasper Garber MCH (RBC) [Entitic mass] 30.8 pg Normal 26.7-34.0 [facility] Comment on above: Performed By: #### U ARMICR #### [facility] [address] [place] [address] Dr. Gasper Garber MCHC (RBC) [Mass/Vol] 32.1 g/dL Normal 29.9-35.2 [facility] Comment on above: Performed By: #### U ARMICR #### [facility] [address] [place] [address] Dr. Gasper Garber MCV (RBC) [Entitic vol] 95.8 fL Normal 81.0-99.0 [facility] Comment on above: Performed By: #### U ARMICR #### [facility] [address] [place] [address] Dr. Gasper Garber MONO # 1.2 103/ul Critically high 0.3-0.8 [facility] Comment on above: Performed By: #### U ARMICR #### [facility] [address] [place] [address] Dr. Gasper Garber Monocytes/100 WBC (Bld) 13.0 % Critically high 1.7-12.0 [facility] Comment on above: Performed By: #### U ARMICR #### [facility] [address] [place] [address] Dr. Gasper Garber NEUT # 5.8 103/ul Normal 1.4-6.5 [facility] Comment on above: Performed By: #### U ARMICR #### [facility] [address] [place] [address] Dr. Gasper Garber Neutrophils/100 WBC (Bld) 63.7 % Normal 43.0-75.0 [facility] Comment on above: Performed By: #### U ARMICR #### [facility] [address] [place] [address] Dr. Gasper Garber Platelet mean volume (Bld) [Entitic vol] 10.0 fL Normal 9.5-13.5 [facility] Comment on above: Performed By: #### U ARMICR #### [facility] [address] [place] [address] Dr. Gasper Garber PLT 251 103/ul Normal 150-450 [facility] Comment on above: Performed By: #### U ARMICR #### [facility] [address] [place] [address] Dr. Gasper Garber RBC 3.80 106/ul Critically low 4.20-5.40 [facility] Comment on above: Performed By: #### U ARMICR #### [facility] [address] [place] [address] Dr. Gasper Garber WBC 9.2 103/ul Normal 4.0-11.0 [facility] Comment on above: Performed By: #### U ARMICR #### [facility] [address] [place] [address] Dr. Gasper Garber BASO # 0.0 103/ul Normal 0.0-0.1 [facility] Comment on above: Performed By: #### U ARMICR #### [facility] [address] [place] [address] Dr. Gasper Garber Basophils/100 WBC (Bld) 0.0 % Critically low 0.2-2.0 [facility] Comment on above: Performed By: #### U ARMICR #### [facility] [address] [place] [address] Dr. Gasper Garber EO # 0.0 103/ul Normal 0.0-0.7 [facility] Comment on above: Performed By: #### U ARMICR #### [facility] [address] [place] [address] Dr. Gasper Garber Eosinophils/100 WBC (Bld) 0.0 % Critically low 0.9-7.0 [facility] Comment on above: Performed By: #### U ARMICR #### [facility] [address] [place] [address] Dr. Gasper Garber Erythrocyte distribution width (RBC) [Ratio] 12.1 % Normal 11.0-15.0 [facility] Comment on above: Performed By: #### U ARMICR #### [facility] [address] [place] [address] Dr. Gasper Garber Hematocrit (Bld) [Volume fraction] 37.9 % Normal 36.0-48.0 [facility] Comment on above: Performed By: #### U ARMICR #### [facility] [address] [place] [address] Dr. Gasper Garber Hemoglobin (Bld) [Mass/Vol] 12.2 g/dL Normal 12.0-16.0 [facility] Comment on above: Performed By: #### U ARMICR #### [facility] [address] [place] [address] Dr. Gasper Garber IG # 0.00 10e3/ul Normal 0.00-0.03 [facility] Comment on above: Performed By: #### U ARMICR #### [facility] [address] [place] [address] Dr. Gasper Garber IG % 0.0 % Normal 0.0-0.5 [facility] Comment on above: Performed By: #### U ARMICR #### [facility] [address] [place] [address] Dr. Gasper Garber LYMPH # 1.3 103/ul Normal 1.2-3.8 [facility] Comment on above: Performed By: #### U ARMICR #### [facility] [address] [address] [address] Gasper Garber Lymphocytes/100 WBC (Bld) 18.6 % Critically low 20.5-60.0 [facility] Comment on above: Performed By: #### U ARMICR #### [facility] [address] [place] [address] Dr. Gasper Garber MANUAL DIFF REQ NO Normal [facility] Comment on above: Performed By: #### U ARMICR #### [facility] [address] [place] [address] Dr. Gasper Garber MCH (RBC) [Entitic mass] 30.7 pg Normal 26.7-34.0 [facility] Comment on above: Performed By: #### U ARMICR #### [facility] [address] [place] [address] Dr. Gasper Garber MCHC (RBC) [Mass/Vol] 32.2 g/dL Normal 29.9-35.2 [facility] Comment on above: Performed By: #### U ARMICR #### [facility] [address] [place] [address] Dr. Gasper Garber MCV (RBC) [Entitic vol] 95.5 fL Normal 81.0-99.0 [facility] Comment on above: Performed By: #### U ARMICR #### [facility] [address] [place] [address] Dr. Gasper Garber MONO # 0.8 103/ul Normal 0.3-0.8 [facility] Comment on above: Performed By: #### U ARMICR #### [facility] [address] [place] [address] Dr. Gasper Garber Monocytes/100 WBC (Bld) 11.6 % Normal 1.7-12.0 [facility] Comment on above: Performed By: #### U ARMICR #### [facility] [address] [place] [address] Dr. Gasper Garber NEUT # 5.0 103/ul Normal 1.4-6.5 [facility] Comment on above: Performed By: #### U ARMICR #### [facility] [address] [address] [address] Gasper Garber Neutrophils/100 WBC (Bld) 69.8 % Normal 43.0-75.0 [facility] Comment on above: Performed By: #### U ARMICR #### [facility] [address] [address] [address] Gasper Garber Platelet mean volume (Bld) [Entitic vol] 9.8 fL Normal 9.5-13.5 [facility] Comment on above: Performed By: #### U ARMICR #### [facility] [address] [address] [address] Gasper Garber PLT 258 103/ul Normal 150-450 [facility] Comment on above: Performed By: #### U ARMICR #### [facility] [address] [address] [address] Gasper Garber RBC 3.97 106/ul Critically low 4.20-5.40 [facility] Comment on above: Performed By: #### U ARMICR #### [facility] [address] [address] [address] Gasper Garber WBC 7.1 103/ul Normal 4.0-11.0 [facility] Comment on above: Performed By: #### U ARMICR #### [facility] [address] HEAD WO CONon [...] SAI UNLU Date: 2022-05-14 00:20 Normal [facility] Covid-19 PCR (CVDTB)on 04-20 SARS-CoV-2 (COVID-19) RNA ANA LUISA+probe Ql (Unsp spec) Not detected Normal NOT DETECTED [facility] Comment on above: Result Comment: When diagnostic [...] for this test is supported by the [employer] Administrator of Health and Human Service's declaration that [...] used). Performed By: #### L ACT #### [facility] [address] [place] [address] Dr. Gasper Garber ER URINE PROFILEon 3 Bilirubin Ql (U) Negative Normal NEGATIVE [facility] Comment on above: Performed By: #### A CETON #### [facility] [address] [place] [address] Dr. Gasper Garber Clarity (U) CLEAR Normal CLEAR [facility] Comment on above: Performed By: #### A CETON #### [facility] [address] [place] [address] Dr. Gasper Garber Color (U) LT. YELLOW Normal YELLOW [facility] Comment on above: Performed By: #### A CETON #### [facility] [address] [place] [address] Dr. Gasper Garber ERUAHD A micrscopic examina tion will be performed if indicated. Normal [facility] Comment on above: Performed By: #### A CETON #### [facility] [address] [place] [address] Dr. Gasper Garber Glucose Ql (U) Negative Normal NEGATIVE [facility] Comment on above: Performed By: #### A CETON #### [facility] [address] [place] [address] Dr. Gasper Garber Hemoglobin Ql (U) Negative Normal NEGATIVE [facility] Comment on above: Performed By: #### A CETON #### [facility] [address] [place] [address] Dr. Gasper Garber Ketones Ql (U) Negative Normal NEGATIVE [facility] Comment on above: Performed By: #### A CETON #### [facility] [address] [place] [address] Dr. Gasper Garber LEUKOCYTES Negative Normal NEGATIVE [facility] Comment on above: Performed By: #### A CETON #### [facility] [address] [place] [address] Dr. Gasper Garber Nitrite Ql (U) Positive Abnormal NEGATIVE [facility] Comment on above: Performed By: #### A CETON #### [facility] [address] [place] [address] Dr. Gasper Garber pH (U) 7.0 [pH] Normal 5-9 [facility] Comment on above: Performed By: #### A CETON #### [facility] [address] [place] [address] Dr. Gasper Garber SPEC GRAVITY <=1.005 Abnormal 1.005-<=1.0 25 [facility] Comment on above: Performed By: #### A CETON #### [facility] [address] [place] [address] Dr. Gasper Garber UA PROTEIN Negative Normal NEGATIVE/ TRACE [facility] Comment on above: Performed By: #### A CETON #### [facility] [address] [place] [address] Dr. Gasper Garber UR MICRO IND INDICATED Normal [facility] Comment on above: Performed By: #### A CETON #### [facility] [address] [place] [address] Dr. Gasper Garber Urobilinogen Qn (U) 0.2 {Kaushik'U}/dL Normal 0.2 - 1. 0 [facility] Comment on above: Performed By: #### A CETON #### [facility] [address] [place] [address] Dr. Gasper Garber MAGNESIUMon 05-14-2022 Magnesium [Mass/Vol] 2.4 mg/dL Normal 1.8-2.4 [facility] Comment on above: Performed By: #### E BERNIE HERNDON #### [facility] [address] [place] [address] Dr. Gasper Garber PROF 14(COMP METB)on 023 Albumin [Mass/Vol] 3.5 g/dL Normal 3.4-5.0 [facility] Comment on above: Performed By: #### Bernice HERNDON UMICRO #### [facility] [address] [place] [address] Dr. Gasper Garber Albumin/Globulin [Mass ratio] 1.0 {ratio} Normal [facility] Comment on above: Performed By: #### Bernice HERNDON UMICRO #### [facility] [address] [place] [address] Dr. Gasper Garber ALP [Catalytic activity/Vol] 82 U/L Normal 46-116 [facility] Comment on above: Performed By: #### Bernice HERNDON UMICRO #### [facility] [address] [place] [address] Dr. Gasper Garber ALT [Catalytic activity/Vol] 22 U/L Normal 14-59 [facility] Comment on above: Performed By: #### Bernice HERNDON UMICRO #### [facility] [address] [place] [address] Dr. Gasper Garber Anion gap [Moles/Vol] 11.1 mmol/L Normal [facility] Comment on above: Performed By: #### Bernice HERNDON UMICRO #### [facility] [address] [place] [address] Dr. Gasper Garber AST [Catalytic activity/Vol] 14 U/L Critically low 15-37 [facility] Comment on above: Performed By: #### Bernice HERNDON UMICRO #### [facility] [address] [place] [address] Dr. Gasper Garber Bilirubin [Mass/Vol] 0.5 mg/dL Normal 0.2-1.0 [facility] Comment on above: Performed By: #### Bernice HERNDON, UMICRO #### [facility] [address] [place] [address] Dr. Gasper Garber Calcium [Mass/Vol] 9.8 mg/dL Normal 8.5-10.1 [facility] Comment on above: Performed By: #### Bernice HERNDON, UMICRO #### [facility] [address] [place] [address] Dr. Gasper Garber Chloride [Moles/Vol] 99 mmol/L Normal 98-107 [facility] Comment on above: Performed By: #### BERNIE MALDONADO #### [facility] [address] [place] [address] Dr. Gasper Garber CO2 [Moles/Vol] 30.5 mmol/L Normal 21.0-32.0 [facility] Comment on above: Performed By: #### TONI MALDONADORO #### [facility] [address] [place] [address] Dr. Gasper Garber Creatinine [Mass/Vol] 1.75 mg/dL Critically high 0.55-1.02 [facility] Comment on above: Performed By: #### TONI MALDONADORO #### [facility] [address] [place] [address] Dr. Gasper Garber EGFR-AF [place] 34 mL/min/1.73m2 Critically low >=60 [facility] Comment on above: Performed By: #### TONI MALDONADORO #### [facility] [address] [place] [address] Dr. Gasper Garber EGFR-NON AF [place] 28 mL/min/1.73m2 Critically low >=60 [facility] Comment on above: Performed By: #### TONI MALDONADORO #### [facility] [address] [place] [address] Dr. Gasper Garber Globulin (S) [Mass/Vol] 3.4 g/dL Normal [facility] Comment on above: Performed By: #### TONI MALDONADORO #### [facility] [address] [place] [address] Dr. Gasper Garber Glucose [Mass/Vol] 154 mg/dL Critically high 74-106 [facility] Comment on above: Performed By: #### TONI MALDONADORO #### [facility] [address] [place] [address] Dr. Gasper Garber Potassium [Moles/Vol] 3.6 mmol/L Normal 3.5-5.1 [facility] Comment on above: Performed By: #### E RUR, UMICRO #### [facility] [address] [place] [address] Dr. Gasper Garber Protein [Mass/Vol] 6.9 g/dL Normal 6.4-8.2 [facility] Comment on above: Performed By: #### E RUR, UMICRO #### [facility] [address] [place] [address] Dr. Gasper Garber Sodium [Moles/Vol] 137 mmol/L Normal 136-145 [facility] Comment on above: Performed By: #### E RUR, UMICRO #### [facility] [address] [place] [address] Dr. Gasper Garber Urea nitrogen [Mass/Vol] 35.0 mg/dL Critically high 7.0-18.0 [facility] Comment on above: Performed By: #### E MINR, UMICRO #### [facility] [address] [place] [address] Dr. Gasper Garber Urea nitrogen/Creatinine [Mass ratio] 20.0 mg/mg Normal [facility] Comment on above: Performed By: #### Bernice HERNDON, UMICRO #### [facility] [address] [place] [address] Dr. Gasper Garber Albumin [Mass/Vol] 3.7 g/dL Normal 3.4-5.0 [facility] Comment on above: Performed By: #### L ACT #### [facility] [address] [place] [address] Dr. Gasper Garber Albumin/Globulin [Mass ratio] 1.1 {ratio} Normal [facility] Comment on above: Performed By: #### L ACT #### [facility] [address] [place] [address] Dr. Gasper Garber ALP [Catalytic activity/Vol] 84 U/L Normal 46-116 [facility] Comment on above: Performed By: #### L ACT #### [facility] [address] [place] [address] Dr. Gasper Garber ALT [Catalytic activity/Vol] 26 U/L Normal 14-59 [facility] Comment on above: Performed By: #### L ACT #### [facility] [address] [address] [address] Gasper Garber Anion gap [Moles/Vol] 8.5 mmol/L Normal [facility] Comment on above: Performed By: #### L ACT #### [facility] [address] [address] [address] Gasper Garber AST [Catalytic activity/Vol] 16 U/L Normal 15-37 [facility] Comment on above: Performed By: #### L ACT #### [facility] [address] [address] [address] Gasper Garber Bilirubin [Mass/Vol] 0.4 mg/dL Normal 0.2-1.0 [facility] Comment on above: Performed By: #### L ACT #### [facility] [address] [address] [address] Gasper Garber Calcium [Mass/Vol] 9.8 mg/dL Normal 8.5-10.1 [facility] Comment on above: Performed By: #### L ACT #### [facility] [address] [address] [address] Gasper Garber Chloride [Moles/Vol] 99 mmol/L Normal 98-107 [facility] Comment on above: Performed By: #### L ACT #### [facility] [address] [address] [address] Gasper Garber CO2 [Moles/Vol] 32.3 mmol/L Critically high 21.0-32.0 [facility] Comment on above: Performed By: #### L ACT #### [facility] [address] [address] [address] Gasper Garber Creatinine [Mass/Vol] 1.84 mg/dL Critically high 0.55-1.02 [facility] Comment on above: Performed By: #### L ACT #### [facility] [address] [address] [address] Gasper Garber EGFR-AF [place] 33 mL/min/1.73m2 Critically low >=60 [facility] Comment on above: Performed By: #### L ACT #### [facility] [address] [address] [address] Gasper Garber EGFR-NON AF [place] 27 mL/min/1.73m2 Critically low >=60 [facility] Comment on above: Performed By: #### L ACT #### [facility] [address] [address] [address] Gasper Garber Globulin (S) [Mass/Vol] 3.4 g/dL Normal [facility] Comment on above: Performed By: #### L ACT #### [facility] [address] [address] [address] Gasper Garber Glucose [Mass/Vol] 180 mg/dL Critically high 74-106 [facility] Comment on above: Performed By: #### L ACT #### [facility] [address] [address] [address] Gasper Garber Potassium [Moles/Vol] 3.8 mmol/L Normal 3.5-5.1 [facility] Comment on above: Performed By: #### L ACT #### [facility] [address] [address] [address] Gasper Garber Protein [Mass/Vol] 7.1 g/dL Normal 6.4-8.2 [facility] Comment on above: Performed By: #### L ACT #### [facility] [address] [address] [address] Gasper Garber Sodium [Moles/Vol] 136 mmol/L Normal 136-145 [facility] Comment on above: Performed By: #### L ACT #### [facility] [address] [address] [address] Gasper Garber Urea nitrogen [Mass/Vol] 35.0 mg/dL Critically high 7.0-18.0 [facility] Comment on above: Performed By: #### L ACT #### [facility] [address] [address] [address] Gasper Garber Urea nitrogen/Creatinine [Mass ratio] 19.0 mg/mg Normal [facility] Comment on above: Performed By: #### L ACT #### [facility] [address] [place] [address] Dr. Gasper Garber PROTIMEon 05-14-2022 INR Coag (PPP) [Relative time] 0.95 {INR} Normal [facility] Comment on above: Performed By: #### U RCX #### [facility] [address] [place] [address] Dr. Gasper Garber INR GUIDELINES SEE BELOW Normal [facility] Comment on above: Result Comment: JESUS RED INR: 2.0 - 3.0 CONDITIONS NOT LISTED BELOW 2.5 - 3.5 FOR PROSTHETIC HEART VALVE REPLACEMENT 2.5 - 3.5 RECURRENT THROMBOSIS Performed By: #### U RCX #### [facility] [address] [place] [address] Dr. Gasper Garber PT Coag (PPP) [Time] 10.1 s Normal 9.0-11.6 [facility] Comment on above: Performed By: #### U RCX #### [facility] [address] [place] [address] Dr. Gasper Garber PTTon 05-14-2022 aPTT Coag (Bld) [Time] 24.7 s Normal 22.3-36.2 [facility] Comment on above: Performed By: #### E BERNIE HERNDON #### [facility] [address] [place] [address] Dr. Gasper Garber URINE MICROSCOPIC ONLYon BACTERIA LARGE Abnormal NONE SEEN [facility] Comment on above: Performed By: #### U ARMICR #### [facility] [address] [place] [address] Dr. Gasper Garber Bacteria identified Cx Nom (U) INDICATED Normal [facility] Comment on above: Performed By: #### U ARMICR #### [facility] [address] [place] [address] Dr. Gasper Garber CAST NONE SEEN Normal NONE SEEN [facility] Comment on above: Performed By: #### U ARMICR #### [facility] [address] [place] [address] Dr. Gasper Garber Crystals LM Nom (Urine sed) NONE SEEN Normal NONE SEEN [facility] Comment on above: Performed By: #### U ARMICR #### [facility] [address] [address] [address] Gasper Garber Epithelial cells LM Ql (Urine sed) MANY Abnormal NONE SEEN /RARE [facility] Comment on above: Performed By: #### U ARMICR #### [facility] [address] [address] [address] Gasper Graber MUCOUS NONE SEEN Normal NONE SEEN [facility] Comment on above: Performed By: #### U ARMICR #### [facility] [address] [address] [address] Gasper Garber RBC 0-2 Normal 0-2 [facility] Comment on above: Performed By: #### U ARMICR #### [facility] [address] [place] [address] Dr. Gasper Garber WBC 0-2 Abnormal NONE SEEN [facility] Comment on above: Performed By: #### U ARMICR #### [facility] [address] [place] [address] Dr. Gasper Garber XR CHEST 1 Von [...] SAI ORTA Date: 2022-05-14 00:19 Normal [facility] XR LSPINE 2_3 VIEWSon 2022 XR LSPINE [...] by: CHRYSTAL LAUREANO Date: 2022-05-05 15:30 Normal [facility] GLYCOHEMOGLOBIN A1Con 2021 ADA RECOMMENDATION SEE BELOW Normal [facility] Comment on above: Result Comment: ADA RECOMMENDED LIMIT 4.0 - 6.0 ADA THERAPEUTIC TARGET < 7.0 ACTION SUGGESTED > 7.0 Performed By: #### BERNIE MALDONADO #### [facility] [address] [address] [address] Gasper Garber Glucose [Mass/Vol] 169 mg/dL Normal [facility] Comment on above: Performed By: #### E BERNIE HERNDON #### [facility] [address] [address] [address] Gasper Garber HbA1c (Bld) [Mass fraction] 7.5 % Critically high 4.5-6.2 [facility] Comment on above: Performed By: #### BERNIE MALDONADO #### [facility] [address] [address] [address] Gasper Garber NM GASTRIC EMPTYon 2 [...] NASRIN CHIU Date: 2021-09-09 13:23 Normal [facility] ACETONE SERUMon 08-31-2021 ACETONE Negative Normal NEGATIVE [facility] Comment on above: Performed By: #### A CETON #### [facility] [address] [address] [address] Gasper Garber CBC AUTO DIFFon 08-31-2021 BASO # 0.0 103/ul Normal 0.0-0.1 [facility] Comment on above: Performed By: #### U ARMICR #### [facility] [address] [place] [address] Dr. Gasper Garber Basophils/100 WBC (Bld) 0.5 % Normal 0.2-2.0 [facility] Comment on above: Performed By: #### U ARMICR #### [facility] [address] [place] [address] Dr. Gasper Garber EO # 0.2 103/ul Normal 0.0-0.7 [facility] Comment on above: Performed By: #### U ARMICR #### [facility] [address] [place] [address] Dr. Gasper Garber Eosinophils/100 WBC (Bld) 1.9 % Normal 0.9-7.0 [facility] Comment on above: Performed By: #### U ARMICR #### [facility] [address] [place] [address] Dr. Gasper Garber Erythrocyte distribution width (RBC) [Ratio] 12.8 % Normal 11.0-15.0 [facility] Comment on above: Performed By: #### U ARMICR #### [facility] [address] [place] [address] Dr. Gasper Garber Hematocrit (Bld) [Volume fraction] 36.2 % Normal 36.0-48.0 [facility] Comment on above: Performed By: #### U ARMICR #### [facility] [address] [place] [address] Dr. Gasper Garber Hemoglobin (Bld) [Mass/Vol] 11.4 g/dL Critically low 12.0-16.0 [facility] Comment on above: Performed By: #### U ARMICR #### [facility] [address] [place] [address] Dr. Gasper Garber IG # 0.03 10e3/ul Normal 0.00-0.03 [facility] Comment on above: Performed By: #### U ARMICR #### [facility] [address] [place] [address] Dr. Gasper Garber IG % 0.4 % Normal 0.0-0.5 [facility] Comment on above: Performed By: #### U ARMICR #### [facility] [address] [place] [address] Dr. Gasper Garber LYMPH # 1.3 103/ul Normal 1.2-3.8 [facility] Comment on above: Performed By: #### U ARMICR #### [facility] [address] [place] [address] Dr. Gasper Garber Lymphocytes/100 WBC (Bld) 15.2 % Critically low 20.5-60.0 [facility] Comment on above: Performed By: #### U ARMICR #### [facility] [address] [place] [address] Dr. Gasper Garber MANUAL DIFF REQ NO Normal [facility] Comment on above: Performed By: #### U ARMICR #### [facility] [address] [place] [address] Dr. Gasper Garber MCH (RBC) [Entitic mass] 30.6 pg Normal 26.7-34.0 [facility] Comment on above: Performed By: #### U ARMICR #### [facility] [address] [place] [address] Dr. Gasper Garber MCHC (RBC) [Mass/Vol] 31.5 g/dL Normal 29.9-35.2 [facility] Comment on above: Performed By: #### U ARMICR #### [facility] [address] [place] [address] Dr. Gasper Garber MCV (RBC) [Entitic vol] 97.1 fL Normal 81.0-99.0 [facility] Comment on above: Performed By: #### U ARMICR #### [facility] [address] [place] [address] Dr. Gasper Garber MONO # 0.8 103/ul Normal 0.3-0.8 [facility] Comment on above: Performed By: #### U ARMICR #### [facility] [address] [place] [address] Dr. Gasper Garber Monocytes/100 WBC (Bld) 9.8 % Normal 1.7-12.0 [facility] Comment on above: Performed By: #### U ARMICR #### [facility] [address] [place] [address] Dr. Gasper Garber NEUT # 6.1 103/ul Normal 1.4-6.5 [facility] Comment on above: Performed By: #### U ARMICR #### [facility] [address] [place] [address] Dr. Gasper Garber Neutrophils/100 WBC (Bld) 72.2 % Normal 43.0-75.0 [facility] Comment on above: Performed By: #### U ARMICR #### [facility] [address] [place] [address] Dr. Gasper Garber Platelet mean volume (Bld) [Entitic vol] 10.2 fL Normal 9.5-13.5 [facility] Comment on above: Performed By: #### U ARMICR #### [facility] [address] [place] [address] Dr. Gasper Garber PLT 249 103/ul Normal 150-450 [facility] Comment on above: Performed By: #### U ARMICR #### [facility] [address] [place] [address] Dr. Gasper Garber RBC 3.73 106/ul Critically low 4.20-5.40 [facility] Comment on above: Performed By: #### U ARMICR #### [facility] [address] [place] [address] Dr. Gasper Garber WBC 8.4 103/ul Normal 4.0-11.0 [facility] Comment on above: Performed By: #### U ARMICR #### [facility] [address] [place] [address] Dr. Gasper Garber CULTURE URINEon 08-31-2021 CULTURE URINE Culture Observations : HEAVY GROWTH OF MIXED GENITAL KADEEM. NO POTENTIAL PATHOGENS SEEN. Normal [facility] Comment on above: Performed By: #### A CETON #### [facility] [address] [place] [address] Dr. Gasper Garber ER URINE PROFILEon 2 Bilirubin Ql (U) SMALL Abnormal NEGATIVE [facility] Comment on above: Performed By: #### Bernice HERNDON UMICRO #### [facility] [address] [place] [address] Dr. Gasper Garber Clarity (U) CLOUDY Abnormal CLEAR [facility] Comment on above: Performed By: #### E YANICK UMICRO #### [facility] [address] [place] [address] Dr. Gasper Garber Color (U) YELLOW Normal YELLOW [facility] Comment on above: Performed By: #### Bernice HERNDON UMICRO #### [facility] [address] [place] [address] Dr. Gasper RIVAS A micrscopic examina tion will be performed if indicated. Normal [facility] Comment on above: Performed By: #### Bernice HERNDON UMICRO #### [facility] [address] [place] [address] Dr. Gasper Garber Glucose Ql (U) Negative Normal NEGATIVE [facility] Comment on above: Performed By: #### Bernice HERNDON UMICRO #### [facility] [address] [place] [address] Dr. Gasper Garber Hemoglobin Ql (U) Negative Normal NEGATIVE [facility] Comment on above: Performed By: #### Bernice HERNDON UMICRO #### [facility] [address] [place] [address] Dr. Gasper Garber Ketones Ql (U) Negative Normal NEGATIVE [facility] Comment on above: Performed By: #### Bernice COPELANDR UMICRO #### [facility] [address] [place] [address] Dr. Gasper Garber LEUKOCYTES TRACE Abnormal NEGATIVE [facility] Comment on above: Performed By: #### E RUR UMICRO #### [facility] [address] [place] [address] Dr. Gasper Garber Nitrite Ql (U) Negative Normal NEGATIVE [facility] Comment on above: Performed By: #### Bernice RUR, UMICRO #### [facility] [address] [place] [address] Dr. Gasper Garber pH (U) 5.5 [pH] Normal 5-9 [facility] Comment on above: Performed By: #### Bernice HERNDON UMICRO #### [facility] [address] [place] [address] Dr. Gasper Garber Protein (U) [Mass/Vol] 100 mg/dL Abnormal NEGATIVE/ TRACE [facility] Comment on above: Performed By: #### Bernice HERNDON UMICRO #### [facility] [address] [place] [address] Dr. Gasper Garber SPEC GRAVITY >=1.030 Abnormal 1.005-<=1.0 25 [facility] Comment on above: Performed By: #### Bernice HERNDON ICRO #### [facility] [address] [place] [address] Dr. Gasper Garber UR MICRO IND INDICATED Normal [facility] Comment on above: Performed By: #### Bernice HERNDON ICRO #### [facility] [address] [place] [address] Dr. Gasper Garber Urobilinogen Qn (U) 1.0 {Kaushik'U}/dL Normal 0.2 - 1. 0 [facility] Comment on above: Performed By: #### Bernice HERNDON ICRO #### [facility] [address] [place] [address] Dr. Gasper Garber GI PANEL (PCR)on 08-31-2021 Adenovirus F 40/41 Not detected Normal NOT DETECTED [facility] Comment on above: Performed By: #### Bernice HERNDON UMICRO #### [facility] [address] [place] [address] Dr. Gasper Garber Astrovirus Not detected Normal NOT DETECTED [facility] Comment on above: Performed By: #### Bernice HERNDON UMICRO #### [facility] [address] [place] [address] Dr. Gasper Garber C. Diff toxin A/B Not detected Normal NOT DETECTED [facility] Comment on above: Performed By: #### Bernice HERNDON UMICRO #### [facility] [address] [place] [address] Dr. Gasper Garber Campylobacter Not detected Normal NOT DETECTED [facility] Comment on above: Performed By: #### E YANICK UMICRO #### [facility] [address] [place] [address] Dr. Gasper Garber Cryptosporidium Not detected Normal NOT DETECTED [facility] Comment on above: Performed By: #### E YANICK UMICRO #### [facility] [address] [place] [address] Dr. Gasper Garber Cyclos. Cayetanensis Not detected Normal NOT DETECTED [facility] Comment on above: Performed By: #### E YANICK ICRO #### [facility] [address] [place] [address] Dr. Gasper Garber E. Coli O157 Not Applicable Normal Not Applicable [facility] Comment on above: Performed By: #### Bernice HERNDON ICRO #### [facility] [address] [place] [address] Dr. Gasper Garber E. histolytica Not detected Normal NOT DETECTED [facility] Comment on above: Performed By: #### Bernice HERNDON ICRO #### [facility] [address] [place] [address] Dr. Gasper Garber EAEC Not detected Normal NOT DETECTED [facility] Comment on above: Performed By: #### Bernice HERNDON UMICRO #### [facility] [address] [place] [address] Dr. Gasper Garber EIEC Not detected Normal NOT DETECTED [facility] Comment on above: Performed By: #### Bernice HERNDON UMICRO #### [facility] [address] [place] [address] Dr. Gasper Garber EPEC Not detected Normal NOT DETECTED [facility] Comment on above: Performed By: #### E YANICK UMICRO #### [facility] [address] [place] [address] Dr. Gasper Garber ETEC Not detected Normal NOT DETECTED [facility] Comment on above: Performed By: #### E YANICK, UMICRO #### [facility] [address] [place] [address] Dr. Gasper Carmona Not detected Normal NOT DETECTED [facility] Comment on above: Performed By: #### Bernice HERNDON, UMICRO #### [facility] [address] [address] [address] Gasper LOPEZ CONTROLS PASSED Normal [facility] Comment on above: Performed By: #### Bernice HERNDON UMICRO #### [facility] [address] [place] [address] Dr. Gasper RUVALCABA BHARATI HEADER GI PANEL BACTERIA Normal [facility] Comment on above: Performed By: #### Bernice HERNDON UMICRO #### [facility] [address] [place] [address] Dr. Gasper NUNEZ ECOLI GI PANEL DIARRHEAGEN IC E.COLI / SHIGELLA Normal [facility] Comment on above: Performed By: #### Bernice HERNDON UMICRO #### [facility] [address] [place] [address] Dr. Gasper NUNEZ INFO SEE BELOW Normal [facility] Comment on above: Result Comment: EAEC - Enteroaggregative E. Coli EPEC- Enteropathogenic E. Coli ETEC- Enterotoxigenic E. Coli lt/st STEC- Shigella-like toxin-producing E. Coli stx1/stx2 EIEC- Shigella/Enteroinvasive E. Coli Performed By: #### Bernice HERNDON UMICRO #### [facility] [address] [place] [address] Dr. Gasper NUNEZ PARASITES GI PANEL PARASITES Normal [facility] Comment on above: Performed By: #### Bernice HERNDON UMICRO #### [facility] [address] [place] [address] Dr. Gasper NUNEZ VIRUS GI PANEL VIRUSES Normal [facility] Comment on above: Performed By: #### Bernice HERNDON UMICRO #### [facility] [address] [place] [address] Dr. Gasper Garber Norovirus GI/GII Detected Abnormal NOT DETECTED [facility] Comment on above: Performed By: #### E RUR, UMICRO #### [facility] [address] [place] [address] Dr. Gasper Reyes. Shigelloides Not detected Normal NOT DETECTED [facility] Comment on above: Performed By: #### E RUR, UMICRO #### [facility] [address] [place] [address] Dr. Gasper Garber Rotavirus A Not detected Normal NOT DETECTED [facility] Comment on above: Performed By: #### E RUR, UMICRO #### [facility] [address] [place] [address] Dr. Gasper Garber Salmonella Not detected Normal NOT DETECTED [facility] Comment on above: Performed By: #### E RUR, UMICRO #### [facility] [address] [place] [address] Dr. Gasper Garber Sapovirus Not detected Normal NOT DETECTED [facility] Comment on above: Performed By: #### E RUR, ICRO #### [facility] [address] [place] [address] Dr. Gasper Garber STEC Not detected Normal NOT DETECTED [facility] Comment on above: Performed By: #### E RUR, UMICRO #### [facility] [address] [place] [address] Dr. Gasper Garber Vibrio Not detected Normal NOT DETECTED [facility] Comment on above: Performed By: #### E RUR, UMICRO #### [facility] [address] [place] [address] Dr. Gasper Garber Vibrio Cholera Not detected Normal NOT DETECTED [facility] Comment on above: Performed By: #### E RUR, UMICRO #### [facility] [address] [place] [address] Dr. Gasper Garber Y. Enterocolitica Not detected Normal NOT DETECTED [facility] Comment on above: Performed By: #### E RUR, UMICRO #### [facility] [address] [place] [address] Dr. Gasper Garber LACTATE/LACTIC ACIDon 2021 Lactate [Moles/Vol] 1.0 mmol/L Normal 0.4-1.9 [facility] Comment on above: Performed By: #### P T, PTT #### [facility] [address] [place] [address] Dr. Gasper Garber LIPASEon 08-31-2021 Lipase [Catalytic activity/Vol] 166.0 U/L Normal 73.0-393.0 [facility] Comment on above: Performed By: #### U ARMICR #### [facility] [address] [place] [address] Dr. Gasper Garber PROF 14(COMP METB)on 022 Albumin [Mass/Vol] 3.7 g/dL Normal 3.4-5.0 [facility] Comment on above: Performed By: #### U ARMICR #### [facility] [address] [place] [address] Dr. Gasper Garber Albumin/Globulin [Mass ratio] 1.0 {ratio} Normal [facility] Comment on above: Performed By: #### U ARMICR #### [facility] [address] [place] [address] Dr. Gasper Garber ALP [Catalytic activity/Vol] 75 U/L Normal 46-116 [facility] Comment on above: Performed By: #### U ARMICR #### [facility] [address] [place] [address] Dr. Gasper Garber ALT [Catalytic activity/Vol] 44 U/L Normal 14-59 [facility] Comment on above: Performed By: #### U ARMICR #### [facility] [address] [place] [address] Dr. Gasper Garber Anion gap [Moles/Vol] 15.3 mmol/L Normal [facility] Comment on above: Performed By: #### U ARMICR #### [facility] [address] [place] [address] Dr. Gasper Garber AST [Catalytic activity/Vol] 27 U/L Normal 15-37 [facility] Comment on above: Performed By: #### U ARMICR #### [facility] [address] [address] [address] Gasper Garber Bilirubin [Mass/Vol] 0.5 mg/dL Normal 0.2-1.0 [facility] Comment on above: Performed By: #### U ARMICR #### [facility] [address] [address] [address] Gasper Garber Calcium [Mass/Vol] 9.7 mg/dL Normal 8.5-10.1 [facility] Comment on above: Performed By: #### U ARMICR #### [facility] [address] [address] [address] Gasper Garber Chloride [Moles/Vol] 105 mmol/L Normal 98-107 [facility] Comment on above: Performed By: #### U ARMICR #### [facility] [address] [address] [address] Gasper Garber CO2 [Moles/Vol] 24.0 mmol/L Normal 21.0-32.0 [facility] Comment on above: Performed By: #### U ARMICR #### [facility] [address] [address] [address] Gasper Garber Creatinine [Mass/Vol] 2.20 mg/dL Critically high 0.55-1.02 [facility] Comment on above: Performed By: #### U ARMICR #### [facility] [address] [address] [address] Gasper Garber EGFR-AF [place] 26 mL/min/1.73m2 Critically low >=60 [facility] Comment on above: Performed By: #### U ARMICR #### [facility] [address] [address] [address] Gasper Garber EGFR-NON AF [place] 22 mL/min/1.73m2 Critically low >=60 [facility] Comment on above: Performed By: #### U ARMICR #### [facility] [address] [address] [address] Gasper Garber Globulin (S) [Mass/Vol] 3.7 g/dL Normal [facility] Comment on above: Performed By: #### U ARMICR #### [facility] [address] [address] [address] Gasper Garber Glucose [Mass/Vol] 280 mg/dL Critically high 74-106 [facility] Comment on above: Performed By: #### U ARMICR #### [facility] [address] [address] [address] Gasper Garber Potassium [Moles/Vol] 4.3 mmol/L Normal 3.5-5.1 [facility] Comment on above: Performed By: #### U ARMICR #### [facility] [address] [address] [address] Gasper Garber Protein [Mass/Vol] 7.4 g/dL Normal 6.4-8.2 [facility] Comment on above: Performed By: #### U ARMICR #### [facility] [address] [address] [address] Gasper Garber Sodium [Moles/Vol] 140 mmol/L Normal 136-145 [facility] Comment on above: Performed By: #### U ARMICR #### [facility] [address] [address] [address] Gasper Garber Urea nitrogen [Mass/Vol] 29.0 mg/dL Critically high 7.0-18.0 [facility] Comment on above: Performed By: #### U ARMICR #### [facility] [address] [address] [address] Gasper Garber Urea nitrogen/Creatinine [Mass ratio] 13.2 mg/mg Normal [facility] Comment on above: Performed By: #### U ARMICR #### [facility] [address] [address] [address] Gasper Garber TSHon 08-31-2021 TSH 0.923 uIU/mL Normal 0.358-3.740 [facility] Comment on above: Performed By: #### U ARMICR #### [facility] [address] [address] [address] Gasper Garber URINE MICROSCOPIC ONLYon BACTERIA SMALL Abnormal NONE SEEN [facility] Comment on above: Performed By: #### E RUR, UMICRO #### [facility] [address] [place] [address] Dr. Gasper Garber Bacteria identified Cx Nom (U) INDICATED Normal [facility] Comment on above: Performed By: #### E RUR, UMICRO #### [facility] [address] [place] [address] Dr. Gasper Garber CAST NONE SEEN Normal NONE SEEN [facility] Comment on above: Performed By: #### E RUR, UMICRO #### [facility] [address] [place] [address] Dr. Gasper Garbre Crystals LM Nom (Urine sed) NONE SEEN Normal NONE SEEN [facility] Comment on above: Performed By: #### E RUR, UMICRO #### [facility] [address] [place] [address] Dr. Gasper Garber Epithelial cells LM Ql (Urine sed) MANY Abnormal NONE SEEN /RARE [facility] Comment on above: Performed By: #### E RUR, UMICRO #### [facility] [address] [place] [address] Dr. Gasper Garber MUCOUS NONE SEEN Normal NONE SEEN [facility] Comment on above: Performed By: #### E RUR, UMICRO #### [facility] [address] [place] [address] Dr. Gasper Garber RBC 0-2 Normal 0-2 [facility] Comment on above: Performed By: #### E RUR, UMICRO #### [facility] [address] [place] [address] Dr. Gasper Garber WBC 2-5 Abnormal NONE SEEN [facility] Comment on above: Performed By: #### E RUR, UMICRO #### [facility] [address] [place] [address] Dr. Gasper Garber XR ABD FLAT UP_PA [...] CHRYSTAL LAUREANO Date: 2021-08-31 15:55 Normal [facility] CBC AUTO DIFFon 08-27-2021 BASO # 0.1 103/ul Normal 0.0-0.1 [facility] Comment on above: Performed By: #### BERNIE MALDONADO #### [facility] [address] [place] [address] Dr. Gasper Garber Basophils/100 WBC (Bld) 0.6 % Normal 0.2-2.0 [facility] Comment on above: Performed By: #### BERNIE MALDONADO #### [facility] [address] [place] [address] Dr. Gasper Garber EO # 0.0 103/ul Normal 0.0-0.7 [facility] Comment on above: Performed By: #### BERNIE MALDONADO #### [facility] [address] [place] [address] Dr. Gasper Garber Eosinophils/100 WBC (Bld) 0.5 % Critically low 0.9-7.0 [facility] Comment on above: Performed By: #### BERNIE MALDONADO #### [facility] [address] [place] [address] Dr. Gasper Garber Erythrocyte distribution width (RBC) [Ratio] 13.0 % Normal 11.0-15.0 [facility] Comment on above: Performed By: #### BERNIE MALDONADO #### [facility] [address] [place] [address] Dr. Gasper Garber Hematocrit (Bld) [Volume fraction] 35.6 % Critically low 36.0-48.0 [facility] Comment on above: Performed By: #### BERNIE MALDONADO #### [facility] [address] [address] [address] Gasper Garber Hemoglobin (Bld) [Mass/Vol] 11.5 g/dL Critically low 12.0-16.0 [facility] Comment on above: Performed By: #### E RUR, UMICRO #### [facility] [address] [place] [address] Dr. Gasper Garber IG # 0.03 10e3/ul Normal 0.00-0.03 [facility] Comment on above: Performed By: #### E RUR, UMICRO #### [facility] [address] [place] [address] Dr. Gasper Garber IG % 0.3 % Normal 0.0-0.5 [facility] Comment on above: Performed By: #### E MINR, UMICRO #### [facility] [address] [place] [address] Dr. Gasper Garber LYMPH # 1.0 103/ul Critically low 1.2-3.8 [facility] Comment on above: Performed By: #### E YANICK, UMICRO #### [facility] [address] [place] [address] Dr. Gasper Garber Lymphocytes/100 WBC (Bld) 10.8 % Critically low 20.5-60.0 [facility] Comment on above: Performed By: #### Bernice HERNDON, UMICRO #### [facility] [address] [place] [address] Dr. Gasper Garber MANUAL DIFF REQ NO Normal [facility] Comment on above: Performed By: #### E RUR, UMICRO #### [facility] [address] [place] [address] Dr. Gasper Garber MCH (RBC) [Entitic mass] 31.2 pg Normal 26.7-34.0 [facility] Comment on above: Performed By: #### E RUR, UMICRO #### [facility] [address] [place] [address] Dr. Gasper Garber MCHC (RBC) [Mass/Vol] 32.3 g/dL Normal 29.9-35.2 [facility] Comment on above: Performed By: #### TONI MALDONADORO #### [facility] [address] [place] [address] Dr. Gasper Garber MCV (RBC) [Entitic vol] 96.5 fL Normal 81.0-99.0 [facility] Comment on above: Performed By: #### TONI MALDONADORO #### [facility] [address] [place] [address] Dr. Gasper Garber MONO # 0.6 103/ul Normal 0.3-0.8 [facility] Comment on above: Performed By: #### TONI MALDONADORO #### [facility] [address] [place] [address] Dr. Gasper Garber Monocytes/100 WBC (Bld) 7.2 % Normal 1.7-12.0 [facility] Comment on above: Performed By: #### TONI MALDONADORO #### [facility] [address] [place] [address] Dr. Gasper Garber NEUT # 7.1 103/ul Critically high 1.4-6.5 [facility] Comment on above: Performed By: #### TONI MALDONADORO #### [facility] [address] [place] [address] Dr. Gasper Garber Neutrophils/100 WBC (Bld) 80.6 % Critically high 43.0-75.0 [facility] Comment on above: Performed By: #### TONI MALDONADORO #### [facility] [address] [place] [address] Dr. Gasper Garber Platelet mean volume (Bld) [Entitic vol] 10.2 fL Normal 9.5-13.5 [facility] Comment on above: Performed By: #### TONI MALDONADORO #### [facility] [address] [place] [address] Dr. Gasper Garber PLT 276 103/ul Normal 150-450 [facility] Comment on above: Performed By: #### TONI MALDONADORO #### [facility] [address] [place], [place] [address] Dr. Gasper Garber RBC 3.69 106/ul Critically low 4.20-5.40 [facility] Comment on above: Performed By: #### BERNIE MALDONADO #### [facility] [address] [place], [place] [address] Dr. Gasper Garber WBC 8.8 103/ul Normal 4.0-11.0 [facility] Comment on above: Performed By: #### BERNIE MALDONADO #### [facility] [address] [place], [place] [address] ABD/PELVIS WO CONon [...] Atherosclerotic vascular disease. Electronically authenticated by: BELIA YEIMY Date: 2021-08-27 16:04 Normal [facility] ER URINE PROFILEon 2 Bilirubin Ql (U) Negative Normal NEGATIVE [facility] Comment on above: Performed By: #### Bernice HERNDON UMICRO #### [facility] [address] [address] [address] Gasper Garber Clarity (U) CLEAR Normal CLEAR [facility] Comment on above: Performed By: #### E YANICK UMICRO #### [facility] [address] [address] [address] Gasper Garber Color (U) LT. YELLOW Normal YELLOW [facility] Comment on above: Performed By: #### Bernice HERNDON UMICRO #### [facility] [address] [place] [address] Dr. Gasper Garber ERUAHD A micrscopic examina tion will be performed if indicated. Normal [facility] Comment on above: Performed By: #### Bernice HERNDON UMICRO #### [facility] [address] [address] [address] Gasper Garber Glucose Ql (U) Negative Normal NEGATIVE [facility] Comment on above: Performed By: #### Bernice HERNDON UMICRO #### [facility] [address] [address] [address] Gsaper Garber Hemoglobin Ql (U) Negative Normal NEGATIVE [facility] Comment on above: Performed By: #### Bernice HERNDON UMICRO #### [facility] [address] [address] [address] Gasper Garber Ketones Ql (U) Negative Normal NEGATIVE [facility] Comment on above: Performed By: #### Bernice HERNDON UMICRO #### [facility] [address] [address] [address] Gasper Garber LEUKOCYTES Negative Normal NEGATIVE [facility] Comment on above: Performed By: #### Bernice HERNDON UMICRO #### [facility] [address] [place] [address] Dr. Gasper Garber Nitrite Ql (U) Negative Normal NEGATIVE [facility] Comment on above: Performed By: #### BERNIE MALDONADO #### [facility] [address] [place] [address] Dr. Gasper Garber pH (U) 6.5 [pH] Normal 5-9 [facility] Comment on above: Performed By: #### BERNIE MALDONADO #### [facility] [address] [place] [address] Dr. Gasper Garber Protein (U) [Mass/Vol] 100 mg/dL Abnormal NEGATIVE/ TRACE [facility] Comment on above: Performed By: #### BERNIE MALDONADO #### [facility] [address] [place] [address] Dr. Gasper Garber SPEC GRAVITY 1.015 Normal 1.005-<=1.0 25 [facility] Comment on above: Performed By: #### BERNIE MALDONADO #### [facility] [address] [place] [address] Dr. Gasper Garber UR MICRO IND INDICATED Normal [facility] Comment on above: Performed By: #### BERNIE MALDONADO #### [facility] [address] [place] [address] Dr. Gasper Garber Urobilinogen Qn (U) 0.2 {Kaushik'U}/dL Normal 0.2 - 1. 0 [facility] Comment on above: Performed By: #### BERNIE MALDONADO #### [facility] [address] [place] [address] Dr. Gasper Garber PROF CHEM 8 (BAS METB)on Anion gap [Moles/Vol] 14.7 mmol/L Normal [facility] Comment on above: Performed By: #### P T, PTT #### [facility] [address] [place] [address] Dr. Gasper Garber Calcium [Mass/Vol] 10.1 mg/dL Normal 8.5-10.1 [facility] Comment on above: Performed By: #### P T, PTT #### [facility] [address] [address] [address] Gasper Garber Chloride [Moles/Vol] 105 mmol/L Normal 98-107 [facility] Comment on above: Performed By: #### P T, PTT #### [facility] [address] [address] [address] Gasper Garber CO2 [Moles/Vol] 24.0 mmol/L Normal 21.0-32.0 [facility] Comment on above: Performed By: #### P T, PTT #### [facility] [address] [address] [address] Gasper Garber Creatinine [Mass/Vol] 1.56 mg/dL Critically high 0.55-1.02 [facility] Comment on above: Performed By: #### P T, PTT #### [facility] [address] [place] [address] Dr. Gasper Garber EGFR-AF [place] 39 mL/min/1.73m2 Critically low >=60 [facility] Comment on above: Performed By: #### P T, PTT #### [facility] [address] [place] [address] Dr. Gasper Garber EGFR-NON AF [place] 32 mL/min/1.73m2 Critically low >=60 [facility] Comment on above: Performed By: #### P T, PTT #### [facility] [address] [address] [address] Gasper Garber Glucose [Mass/Vol] 209 mg/dL Critically high 74-106 [facility] Comment on above: Performed By: #### P T, PTT #### [facility] [address] [address] [address] Gasper Garber Potassium [Moles/Vol] 4.7 mmol/L Normal 3.5-5.1 [facility] Comment on above: Performed By: #### P T, PTT #### [facility] [address] [address] [address] Gasper Garber Sodium [Moles/Vol] 139 mmol/L Normal 136-145 [facility] Comment on above: Performed By: #### P T, PTT #### [facility] [address] [place] [address] Dr. Gasper Garber Urea nitrogen [Mass/Vol] 16.0 mg/dL Normal 7.0-18.0 [facility] Comment on above: Performed By: #### P T, PTT #### [facility] [address] [place] [address] Dr. Gasper Garber Urea nitrogen/Creatinine [Mass ratio] 10.3 mg/mg Normal [facility] Comment on above: Performed By: #### P T, PTT #### [facility] [address] [place] [address] Dr. Gasper Garber URINE MICROSCOPIC ONLYon BACTERIA TRACE Abnormal NONE SEEN [facility] Comment on above: Performed By: #### E RUR, UMICRO #### [facility] [address] [place] [address] Dr. Gasper Garber Bacteria identified Cx Nom (U) NOT INDICATED Normal [facility] Comment on above: Performed By: #### E RUR, UMICRO #### [facility] [address] [place] [address] Dr. Gasper Garber CAST NONE SEEN Normal NONE SEEN [facility] Comment on above: Performed By: #### E RUR, UMICRO #### [facility] [address] [place] [address] Dr. Gasper Garber Crystals LM Nom (Urine sed) NONE SEEN Normal NONE SEEN [facility] Comment on above: Performed By: #### E RUR, UMICRO #### [facility] [address] [place] [address] Dr. Gasper Garber Epithelial cells LM Ql (Urine sed) FEW Abnormal NONE SEEN /RARE [facility] Comment on above: Performed By: #### E RUR, UMICRO #### [facility] [address] [place] [address] Dr. Gasper Garber MUCOUS NONE SEEN Normal NONE SEEN [facility] Comment on above: Performed By: #### E RUR, UMICRO #### [facility] [address] [place] [address] Dr. Gasper Garber RBC NONE SEEN Abnormal 0-2 [facility] Comment on above: Performed By: #### BERNIE MALDONADO #### [facility] [address] [place] [address] Dr. Gasper Garber WBC 0-2 Abnormal NONE SEEN [facility] Comment on above: Performed By: #### BERNIE MALDONADO #### [facility] [address] [place] [address] Dr. Gasper Garber CULTURE URINEon 08-19-2021 CULTURE URINE Culture Observations : Called to [facility] rn 08-19-21 @[id number] Culture Observations: METHICILLIN RESISTANT STAPH AUREUS ISOLATED. [...] C Oxacillin >=4 R C Normal [facility] Comment on above: Performed By: #### A CETON #### [facility] [address] [place] [address] Dr. Gasper Garber CBC AUTO DIFFon 08-16-2021 BASO # 0.0 103/ul Normal 0.0-0.1 [facility] Comment on above: Performed By: #### BERNIE MALDONADO #### [facility] [address] [place] [address] Dr. Gasper Garber Basophils/100 WBC (Bld) 0.4 % Normal 0.2-2.0 [facility] Comment on above: Performed By: #### BERNIE MALDONADO #### [facility] [address] [place] [address] Dr. Gasper Garber EO # 0.1 103/ul Normal 0.0-0.7 [facility] Comment on above: Performed By: #### TONI MALDONADORO #### [facility] [address] [place] [address] Dr. Gasper Garber Eosinophils/100 WBC (Bld) 1.0 % Normal 0.9-7.0 [facility] Comment on above: Performed By: #### JOANNE MALDONADOICRO #### [facility] [address] [place] [address] Dr. Gasper Garber Erythrocyte distribution width (RBC) [Ratio] 12.5 % Normal 11.0-15.0 [facility] Comment on above: Performed By: #### TONI MALDONADORO #### [facility] [address] [place] [address] Dr. Gasper Garber Hematocrit (Bld) [Volume fraction] 35.3 % Critically low 36.0-48.0 [facility] Comment on above: Performed By: #### TONI MALDONADORO #### [facility] [address] [place] [address] Dr. Gasper Garber Hemoglobin (Bld) [Mass/Vol] 11.7 g/dL Critically low 12.0-16.0 [facility] Comment on above: Performed By: #### Bernice HERNDON UMICRO #### [facility] [address] [place] [address] Dr. Gasper Garber IG # 0.03 10e3/ul Normal 0.00-0.03 [facility] Comment on above: Performed By: #### Bernice HERNDON UMICRO #### [facility] [address] [place] [address] Dr. Gasper Garber IG % 0.3 % Normal 0.0-0.5 [facility] Comment on above: Performed By: #### Bernice HERNDON, UMICRO #### [facility] [address] [place] [address] Dr. Gasper Garber LYMPH # 0.9 103/ul Critically low 1.2-3.8 [facility] Comment on above: Performed By: #### TONI MALDONADORO #### [facility] [address] [place] [address] Dr. Gasper Garber Lymphocytes/100 WBC (Bld) 9.6 % Critically low 20.5-60.0 [facility] Comment on above: Performed By: #### Bernice HERNDON UMICRO #### [facility] [address] [place] [address] Dr. Gasper Garber MANUAL DIFF REQ NO Normal [facility] Comment on above: Performed By: #### OJANNE MALDONADOICRO #### [facility] [address] [place] [address] Dr. Gasper Garber MCH (RBC) [Entitic mass] 30.8 pg Normal 26.7-34.0 [facility] Comment on above: Performed By: #### Bernice HERNDON UMICRO #### [facility] [address] [place] [address] Dr. Gasper Garber MCHC (RBC) [Mass/Vol] 33.1 g/dL Normal 29.9-35.2 [facility] Comment on above: Performed By: #### TONI MALDONADORO #### [facility] [address] [place] [address] Dr. Gasper Garber MCV (RBC) [Entitic vol] 92.9 fL Normal 81.0-99.0 [facility] Comment on above: Performed By: #### JOANNE MALDONADOICRO #### [facility] [address] [place] [address] Dr. Gasper Garber MONO # 0.9 103/ul Critically high 0.3-0.8 [facility] Comment on above: Performed By: #### TONI MALDONADORO #### [facility] [address] [place] [address] Dr. Gasper Garber Monocytes/100 WBC (Bld) 9.3 % Normal 1.7-12.0 [facility] Comment on above: Performed By: #### TONI MALDONADORO #### [facility] [address] [place] [address] Dr. Gasper Garber NEUT # 7.7 103/ul Critically high 1.4-6.5 [facility] Comment on above: Performed By: #### TONI MALDONADORO #### [facility] [address] [place] [address] Dr. Gasper Garber Neutrophils/100 WBC (Bld) 79.4 % Critically high 43.0-75.0 [facility] Comment on above: Performed By: #### JOANNE MALDONADOICRO #### [facility] [address] [place] [address] Dr. Gasper Garber Platelet mean volume (Bld) [Entitic vol] 10.1 fL Normal 9.5-13.5 [facility] Comment on above: Performed By: #### Bernice HERNDON ICRO #### [facility] [address] [place] [address] Dr. Gasper Garber PLT 302 103/ul Normal 150-450 [facility] Comment on above: Performed By: #### Bernice HERNDON ICRO #### [facility] [address] [place] [address] Dr. Gasper Garber RBC 3.80 106/ul Critically low 4.20-5.40 [facility] Comment on above: Performed By: #### Bernice HERNDON ICRO #### [facility] [address] [place] [address] Dr. Gasper Garber WBC 9.7 103/ul Normal 4.0-11.0 [facility] Comment on above: Performed By: #### Bernice HERNDON ICRO #### [facility] [address] [place] [address] Dr. Gasper Garber ER URINE PROFILEon 2 Bilirubin Ql (U) Negative Normal NEGATIVE [facility] Comment on above: Performed By: #### U DONOVANR #### [facility] [address] [place] [address] Dr. Gasper Garber Clarity (U) CLEAR Normal CLEAR [facility] Comment on above: Performed By: #### U DONOVANR #### [facility] [address] [address] [address] Gasper Garber Color (U) LT. YELLOW Normal YELLOW [facility] Comment on above: Performed By: #### U ARMICR #### [facility] [address] [address] [address] Gasper RIVAS A micrscopic examina tion will be performed if indicated. Normal [facility] Comment on above: Performed By: #### U ARMICR #### [facility] [address] [address] [address] Gasper Garber Glucose Ql (U) Negative Normal NEGATIVE [facility] Comment on above: Performed By: #### U ARMICR #### [facility] [address] [place] [address] Dr. Gasper Garber Hemoglobin Ql (U) Negative Normal NEGATIVE [facility] Comment on above: Performed By: #### U ARMICR #### [facility] [address] [place] [address] Dr. Gasper Garber Ketones Ql (U) Negative Normal NEGATIVE [facility] Comment on above: Performed By: #### U ARMICR #### [facility] [address] [place] [address] Dr. Gasper Garber LEUKOCYTES MODERATE Abnormal NEGATIVE [facility] Comment on above: Performed By: #### U ARMICR #### [facility] [address] [place] [address] Dr. Gasper Garber Nitrite Ql (U) Negative Normal NEGATIVE [facility] Comment on above: Performed By: #### U ARMICR #### [facility] [address] [place] [address] Dr. Gasper Garber pH (U) 7.0 [pH] Normal 5-9 [facility] Comment on above: Performed By: #### U ARMICR #### [facility] [address] [place] [address] Dr. Gasper Garber SPEC GRAVITY 1.010 Normal 1.005-<=1.0 25 [facility] Comment on above: Performed By: #### U ARMICR #### [facility] [address] [place] [address] Dr. Gasper Garber UA PROTEIN Negative Normal NEGATIVE/ TRACE [facility] Comment on above: Performed By: #### U ARMICR #### [facility] [address] [place] [address] Dr. Gasper Garber UR MICRO IND INDICATED Normal [facility] Comment on above: Performed By: #### U ARMICR #### [facility] [address] [place] [address] Dr. Gasper Garber Urobilinogen Qn (U) 0.2 {Kaushik'U}/dL Normal 0.2 - 1. 0 [facility] Comment on above: Performed By: #### U ARMICR #### [facility] [address] [place] [address] Dr. Gasper Garber PROF 14(COMP METB)on 022 Albumin [Mass/Vol] 3.9 g/dL Normal 3.4-5.0 [facility] Comment on above: Performed By: #### P T, PTT #### [facility] [address] [place] [address] Dr. Gasper Garber Albumin/Globulin [Mass ratio] 1.2 {ratio} Normal [facility] Comment on above: Performed By: #### P T, PTT #### [facility] [address] [place] [address] Dr. Gasper Garber ALP [Catalytic activity/Vol] 70 U/L Normal 46-116 [facility] Comment on above: Performed By: #### P T, PTT #### [facility] [address] [place] [address] Dr. Gasper Garber ALT [Catalytic activity/Vol] 44 U/L Normal 14-59 [facility] Comment on above: Performed By: #### P T, PTT #### [facility] [address] [place] [address] Dr. Gasper Garber Anion gap [Moles/Vol] 17.7 mmol/L Normal [facility] Comment on above: Performed By: #### P T, PTT #### [facility] [address] [address] [address] Gasper Garber AST [Catalytic activity/Vol] 31 U/L Normal 15-37 [facility] Comment on above: Performed By: #### P T, PTT #### [facility] [address] [address] [address] Gasper Garber Bilirubin [Mass/Vol] 0.6 mg/dL Normal 0.2-1.0 [facility] Comment on above: Performed By: #### P T, PTT #### [facility] [address] [address] [address] Gasper Garber Calcium [Mass/Vol] 9.9 mg/dL Normal 8.5-10.1 [facility] Comment on above: Performed By: #### P T, PTT #### [facility] [address] [place] [address] Dr. Gasper Garber Chloride [Moles/Vol] 99 mmol/L Normal 98-107 [facility] Comment on above: Performed By: #### P T, PTT #### [facility] [address] [address] [address] Gasper Garber CO2 [Moles/Vol] 24.4 mmol/L Normal 21.0-32.0 [facility] Comment on above: Performed By: #### P T, PTT #### [facility] [address] [place] [address] Dr. Gasper Garber Creatinine [Mass/Vol] 3.08 mg/dL Critically high 0.55-1.02 [facility] Comment on above: Performed By: #### P T, PTT #### [facility] [address] [place] [address] Dr. Gasper Garber EGFR-AF [place] 18 mL/min/1.73m2 Critically low >=60 [facility] Comment on above: Performed By: #### P T, PTT #### [facility] [address] [place] [address] Dr. Gasper Garber EGFR-NON AF [place] 15 mL/min/1.73m2 Critically low >=60 [facility] Comment on above: Performed By: #### P T, PTT #### [facility] [address] [address] [address] Gasper Garber Globulin (S) [Mass/Vol] 3.2 g/dL Normal [facility] Comment on above: Performed By: #### P T, PTT #### [facility] [address] [address] [address] Gasper Garber Glucose [Mass/Vol] 158 mg/dL Critically high 74-106 [facility] Comment on above: Performed By: #### P T, PTT #### [facility] [address] [address] [address] Gasper Garber Potassium [Moles/Vol] 4.1 mmol/L Normal 3.5-5.1 [facility] Comment on above: Performed By: #### P T, PTT #### [facility] [address] [place] [address] Dr. Gasper Garber Protein [Mass/Vol] 7.1 g/dL Normal 6.4-8.2 [facility] Comment on above: Performed By: #### P T, PTT #### [facility] [address] [place] [address] Dr. Gasper Garber Sodium [Moles/Vol] 137 mmol/L Normal 136-145 [facility] Comment on above: Performed By: #### P T, PTT #### [facility] [address] [place] [address] Dr. Gasper Garber Urea nitrogen [Mass/Vol] 48.0 mg/dL Critically high 7.0-18.0 [facility] Comment on above: Performed By: #### P T, PTT #### [facility] [address] [place] [address] Dr. Gasper Garber Urea nitrogen/Creatinine [Mass ratio] 15.6 mg/mg Normal [facility] Comment on above: Performed By: #### P T, PTT #### [facility] [address] [place] [address] Dr. Gasper Garber TROPONIN, HIGH SENSITIVITYon 08-16-2021 HSTROP 15.7 pg/mL Normal 4.0-51.3 [facility] Comment on above: Result Comment: CUT- OFF POINTS HAVE BEEN ESTABLISHED BASED ON THE FOURTH UNIVERSAL DEFINITIONS OF MYOCARDIAL INFARCTION. THE UPPER REFERENCE LIMIT (URL) OF TROPONIN, DEFINED THE 99TH PERCENTILE OF cTnI DISTRIBUTION IN A REFERENCE POPULATION, HAS BEEN CONFIRMED THE DECISION THRESHOLD FOR [place] DIAGNOSIS. Performed By: #### P T, PTT #### [facility] [address] [place] [address] Dr. Gasper Garber URINE MICROSCOPIC ONLYon BACTERIA TRACE Abnormal NONE SEEN [facility] Comment on above: Performed By: #### U ARMICR #### [facility] [address] [place] [address] Dr. Gasper Garber Bacteria identified Cx Nom (U) INDICATED Normal [facility] Comment on above: Performed By: #### U ARMICR #### [facility] [address] [place] [address] Dr. Gasper Garber CAST NONE SEEN Normal NONE SEEN [facility] Comment on above: Performed By: #### U ARMICR #### [facility] [address] [place] [address] Dr. Gasper Garber Crystals LM Nom (Urine sed) NONE SEEN Normal NONE SEEN [facility] Comment on above: Performed By: #### U ARMICR #### [facility] [address] [place] [address] Dr. Gasper Garber Epithelial cells LM Ql (Urine sed) FEW Abnormal NONE SEEN /RARE [facility] Comment on above: Performed By: #### U ARMICR #### [facility] [address] [place] [address] Dr. Gasper Garber MUCOUS NONE SEEN Normal NONE SEEN [facility] Comment on above: Performed By: #### U ARMICR #### [facility] [address] [place] [address] Dr. Gasper Garber RBC 0-2 Normal 0-2 [facility] Comment on above: Performed By: #### U ARMICR #### [facility] [address] [place] [address] Dr. Gasper Garber WBC 10-20 Abnormal NONE SEEN [facility] Comment on above: Performed By: #### U ARMICR #### [facility] [address] [address] [address] Gasper Garber PROF CHEM 8 (BAS METB)on Anion gap [Moles/Vol] 13.5 mmol/L Normal [facility] Comment on above: Performed By: #### P T, PTT #### [facility] [address] [address] [address] Gasper Garber Calcium [Mass/Vol] 9.6 mg/dL Normal 8.5-10.1 [facility] Comment on above: Performed By: #### P T, PTT #### [facility] [address] [address] [address] Gasper Garber Chloride [Moles/Vol] 102 mmol/L Normal 98-107 [facility] Comment on above: Performed By: #### P T, PTT #### [facility] [address] [place] [address] Dr. Gasper Garber CO2 [Moles/Vol] 29.0 mmol/L Normal 21.0-32.0 [facility] Comment on above: Performed By: #### P T, PTT #### [facility] [address] [place] [address] Dr. Gasper Garber Creatinine [Mass/Vol] 2.05 mg/dL Critically high 0.55-1.02 [facility] Comment on above: Performed By: #### P T, PTT #### [facility] [address] [address] [address] Gasper Garber EGFR-AF [place] 29 mL/min/1.73m2 Critically low >=60 [facility] Comment on above: Performed By: #### P T, PTT #### [facility] [address] [address] [address] Gasper Garber EGFR-NON AF [place] 24 mL/min/1.73m2 Critically low >=60 [facility] Comment on above: Performed By: #### P T, PTT #### [facility] [address] [address] [address] Gasper Garber Glucose [Mass/Vol] 203 mg/dL Critically high 74-106 [facility] Comment on above: Performed By: #### P T, PTT #### [facility] [address] [place] [address] Dr. Gasper Garber Potassium [Moles/Vol] 4.5 mmol/L Normal 3.5-5.1 [facility] Comment on above: Performed By: #### P T, PTT #### [facility] [address] [place] [address] Dr. Gasper Garber Sodium [Moles/Vol] 140 mmol/L Normal 136-145 [facility] Comment on above: Performed By: #### P T, PTT #### [facility] [address] [place] [address] Dr. Gasper Garber Urea nitrogen [Mass/Vol] 34.0 mg/dL Critically high 7.0-18.0 [facility] Comment on above: Performed By: #### P T, PTT #### [facility] [address] [place] [address] Dr. Gasper Garber Urea nitrogen/Creatinine [Mass ratio] 16.6 mg/mg Normal [facility] Comment on above: Performed By: #### P T, PTT #### [facility] [address] [place] [address] Dr. Gasper Garber BNPon 07-27-2021 Natriuretic peptide B (Bld) [Mass/Vol] 1454.0 pg/mL Critically high <=900.0 [facility] Comment on above: Performed By: #### BERNIE MALDONADO #### [facility] [address] [place] [address] Dr. Gasper Garber CBC AUTO DIFFon 07-27-2021 BASO # 0.1 103/ul Normal 0.0-0.1 [facility] Comment on above: Performed By: #### BERNIE MALDONADO #### [facility] [address] [place] [address] Dr. Gasper Garber Basophils/100 WBC (Bld) 0.7 % Normal 0.2-2.0 [facility] Comment on above: Performed By: #### BERNIE MALDONADO #### [facility] [address] [place] [address] Dr. Gasper Garber EO # 0.3 103/ul Normal 0.0-0.7 [facility] Comment on above: Performed By: #### JOANNE MALDONADOICRO #### [facility] [address] [place] [address] Dr. Gasper Garber Eosinophils/100 WBC (Bld) 4.3 % Normal 0.9-7.0 [facility] Comment on above: Performed By: #### TONI MALDONADORO #### [facility] [address] [place] [address] Dr. Gasper Gabrer Erythrocyte distribution width (RBC) [Ratio] 13.0 % Normal 11.0-15.0 [facility] Comment on above: Performed By: #### TONI MALDONADORO #### [facility] [address] [place] [address] Dr. Gasper Garber Hematocrit (Bld) [Volume fraction] 34.5 % Critically low 36.0-48.0 [facility] Comment on above: Performed By: #### TONI MALDONADORO #### [facility] [address] [place] [address] Dr. Gasper Garber Hemoglobin (Bld) [Mass/Vol] 11.0 g/dL Critically low 12.0-16.0 [facility] Comment on above: Performed By: #### TONI MALDONADORO #### [facility] [address] [place] [address] Dr. Gasper Garber IG # 0.02 10e3/ul Normal 0.00-0.03 [facility] Comment on above: Performed By: #### TONI MALDONADORO #### [facility] [address] [place] [address] Dr. Gasper Garber IG % 0.3 % Normal 0.0-0.5 [facility] Comment on above: Performed By: #### TONI MALDONADORO #### [facility] [address] [place] [address] Dr. Gasper Garber LYMPH # 1.1 103/ul Critically low 1.2-3.8 [facility] Comment on above: Performed By: #### TONI MALDONADORO #### [facility] [address] [place] [address] Dr. Gasper Garber Lymphocytes/100 WBC (Bld) 14.3 % Critically low 20.5-60.0 [facility] Comment on above: Performed By: #### TONI MALDONADORO #### [facility] [address] [place] [address] Dr. Gasper Garber MANUAL DIFF REQ NO Normal [facility] Comment on above: Performed By: #### TONI MALDONADORO #### [facility] [address] [place] [address] Dr. Gasper Garber MCH (RBC) [Entitic mass] 30.9 pg Normal 26.7-34.0 [facility] Comment on above: Performed By: #### TONI MALDONADORO #### [facility] [address] [place] [address] Dr. Gasper Garber MCHC (RBC) [Mass/Vol] 31.9 g/dL Normal 29.9-35.2 [facility] Comment on above: Performed By: #### TONI MALDONADORO #### [facility] [address] [place] [address] Dr. Gasper Garber MCV (RBC) [Entitic vol] 96.9 fL Normal 81.0-99.0 [facility] Comment on above: Performed By: #### TONI MALDONADORO #### [facility] [address] [place] [address] Dr. Gasper Garber MONO # 0.7 103/ul Normal 0.3-0.8 [facility] Comment on above: Performed By: #### TONI MALDONADORO #### [facility] [address] [place] [address] Dr. Gasper Garber Monocytes/100 WBC (Bld) 9.3 % Normal 1.7-12.0 [facility] Comment on above: Performed By: #### Bernice HERNDON UMICRO #### [facility] [address] [place] [address] Dr. Gasper Garber NEUT # 5.4 103/ul Normal 1.4-6.5 [facility] Comment on above: Performed By: #### Bernice HERNDON UMICRO #### [facility] [address] [place] [address] Dr. Gasper Garber Neutrophils/100 WBC (Bld) 71.1 % Normal 43.0-75.0 [facility] Comment on above: Performed By: #### Bernice HERNDON UMICRO #### [facility] [address] [place] [address] Dr. Gasper Garber Platelet mean volume (Bld) [Entitic vol] 10.2 fL Normal 9.5-13.5 [facility] Comment on above: Performed By: #### Bernice HERNDON UMICRO #### [facility] [address] [place] [address] Dr. Gasper Garber PLT 284 103/ul Normal 150-450 [facility] Comment on above: Performed By: #### Bernice HERNDON UMICRO #### [facility] [address] [place] [address] Dr. Gasper Garber RBC 3.56 106/ul Critically low 4.20-5.40 [facility] Comment on above: Performed By: #### Bernice HERNDON UMICRO #### [facility] [address] [place] [address] Dr. Gasper Garber WBC 7.6 103/ul Normal 4.0-11.0 [facility] Comment on above: Performed By: #### Bernice HERNDON UMICRO #### [facility] [address] [place] [address] Dr. Gasper Garber PROF CHEM 8 (BAS METB)on Anion gap [Moles/Vol] 15.3 mmol/L Normal [facility] Comment on above: Performed By: #### Bernice HERNDON UMICRO #### [facility] [address] [place] [address] Dr. Gasper Garber Calcium [Mass/Vol] 9.1 mg/dL Normal 8.5-10.1 [facility] Comment on above: Performed By: #### TONI MALDONADORO #### [facility] [address] [address] [address] Gasper Garber Chloride [Moles/Vol] 100 mmol/L Normal 98-107 [facility] Comment on above: Performed By: #### Bernice HERNDON UMICRO #### [facility] [address] [address] [address] Gasper Garber CO2 [Moles/Vol] 26.8 mmol/L Normal 21.0-32.0 [facility] Comment on above: Performed By: #### Bernice HERNDON UMICRO #### [facility] [address] [place] [address] Dr. Gasper Garber Creatinine [Mass/Vol] 2.83 mg/dL Critically high 0.55-1.02 [facility] Comment on above: Performed By: #### TONI MALDONADORO #### [facility] [address] [place] [address] Dr. Gasper Garber EGFR-AF [place] 20 mL/min/1.73m2 Critically low >=60 [facility] Comment on above: Performed By: #### Bernice HERNDON UMICRO #### [facility] [address] [place] [address] Dr. Gasper Garber EGFR-NON AF [place] 16 mL/min/1.73m2 Critically low >=60 [facility] Comment on above: Performed By: #### Bernice HERNDON UMICRO #### [facility] [address] [place] [address] Dr. Gasper Garber Glucose [Mass/Vol] 141 mg/dL Critically high 74-106 [facility] Comment on above: Performed By: #### Bernice HERNDON, UMICRO #### [facility] [address] [place] [address] Dr. Gasper Garber Potassium [Moles/Vol] 4.1 mmol/L Normal 3.5-5.1 [facility] Comment on above: Performed By: #### E TONI HERNDONRO #### [facility] [address] [place] [address] Dr. Gasper Garber Sodium [Moles/Vol] 138 mmol/L Normal 136-145 [facility] Comment on above: Performed By: #### E TONI HERNDONRO #### [facility] [address] [place] [address] Dr. Gasper Garber Urea nitrogen [Mass/Vol] 48.0 mg/dL Critically high 7.0-18.0 [facility] Comment on above: Performed By: #### E TONI HERNDONRO #### [facility] [address] [place] [address] Dr. Gasper Garber Urea nitrogen/Creatinine [Mass ratio] 17.0 mg/mg Normal [facility] Comment on above: Performed By: #### E YANICK UMDINORAHRO #### [facility] [address] [place] [address] Dr. Gasper Garber CULTURE URINEon 07-18-2021 CULTURE [...] F Trimethoprim/Sulfamethoxazo le <=20 S F Normal [facility] Comment on above: Performed By: #### A CETON #### [facility] [address] [place] [address] Dr. Gasper Garber BNPon 07-17-2021 Natriuretic peptide B (Bld) [Mass/Vol] 2592.0 pg/mL Critically high <=900.0 [facility] Comment on above: Performed By: #### U RCX #### [facility] [address] [address] [address] Gasper Garber CBC AUTO DIFFon 07-17-2021 BASO # 0.0 103/ul Normal 0.0-0.1 [facility] Comment on above: Performed By: #### L ACT #### [facility] [address] [address] [address] Gasper Garber Basophils/100 WBC (Bld) 0.4 % Normal 0.2-2.0 [facility] Comment on above: Performed By: #### L ACT #### [facility] [address] [address] [address] Gasper Garber EO # 0.3 103/ul Normal 0.0-0.7 [facility] Comment on above: Performed By: #### L ACT #### [facility] [address] [place] [address] Dr. Gasper Garber Eosinophils/100 WBC (Bld) 4.3 % Normal 0.9-7.0 [facility] Comment on above: Performed By: #### L ACT #### [facility] [address] [address] [address] Gasper Garber Erythrocyte distribution width (RBC) [Ratio] 12.5 % Normal 11.0-15.0 [facility] Comment on above: Performed By: #### L ACT #### [facility] [address] [place] [address] Dr. Gasper Garber Hematocrit (Bld) [Volume fraction] 30.3 % Critically low 36.0-48.0 [facility] Comment on above: Performed By: #### L ACT #### [facility] [address] [address] [address] Gasper Garber Hemoglobin (Bld) [Mass/Vol] 9.8 g/dL Critically low 12.0-16.0 [facility] Comment on above: Performed By: #### L ACT #### [facility] [address] [address] [address] Gasper Garber IG # 0.02 10e3/ul Normal 0.00-0.03 [facility] Comment on above: Performed By: #### L ACT #### [facility] [address] [address] [address] Gasper Garber IG % 0.3 % Normal 0.0-0.5 [facility] Comment on above: Performed By: #### L ACT #### [facility] [address] [address] [address] Gasper Garber LYMPH # 1.5 103/ul Normal 1.2-3.8 [facility] Comment on above: Performed By: #### L ACT #### [facility] [address] [place] [address] Dr. Gasper Garber Lymphocytes/100 WBC (Bld) 19.8 % Critically low 20.5-60.0 [facility] Comment on above: Performed By: #### L ACT #### [facility] [address] [place] [address] Dr. Gasper Garber MANUAL DIFF REQ NO Normal [facility] Comment on above: Performed By: #### L ACT #### [facility] [address] [place] [address] Dr. Gasper Garber MCH (RBC) [Entitic mass] 31.3 pg Normal 26.7-34.0 [facility] Comment on above: Performed By: #### L ACT #### [facility] [address] [place] [address] Dr. Gasper Garber MCHC (RBC) [Mass/Vol] 32.3 g/dL Normal 29.9-35.2 [facility] Comment on above: Performed By: #### L ACT #### [facility] [address] [place] [address] Dr. Gasper Garber MCV (RBC) [Entitic vol] 96.8 fL Normal 81.0-99.0 [facility] Comment on above: Performed By: #### L ACT #### [facility] [address] [place] [address] Dr. Gasper Garber MONO # 0.9 103/ul Critically high 0.3-0.8 [facility] Comment on above: Performed By: #### L ACT #### [facility] [address] [address] [address] Gasper Garber Monocytes/100 WBC (Bld) 11.7 % Normal 1.7-12.0 [facility] Comment on above: Performed By: #### L ACT #### [facility] [address] [place] [address] Dr. Gasper Garber NEUT # 4.8 103/ul Normal 1.4-6.5 [facility] Comment on above: Performed By: #### L ACT #### [facility] [address] [place] [address] Dr. Gasper Garber Neutrophils/100 WBC (Bld) 63.5 % Normal 43.0-75.0 [facility] Comment on above: Performed By: #### L ACT #### [facility] [address] [place] [address] Dr. Gasper Garber Platelet mean volume (Bld) [Entitic vol] 10.9 fL Normal 9.5-13.5 [facility] Comment on above: Performed By: #### L ACT #### [facility] [address] [place] [address] Dr. Gasper Garber PLT 193 103/ul Normal 150-450 [facility] Comment on above: Performed By: #### L ACT #### [facility] [address] [place] [address] Dr. Gasper Garber RBC 3.13 106/ul Critically low 4.20-5.40 [facility] Comment on above: Performed By: #### L ACT #### [facility] [address] [address] [address] Gasper Garber WBC 7.5 103/ul Normal 4.0-11.0 [facility] Comment on above: Performed By: #### L ACT #### [facility] [address] [place], [place] [id number] Dr. Gasper Garber POINT OF CARE GLUCOSEon 05-2 Glucose [Mass/Vol] 244 mg/dL Critically high 74-106 [facility] Comment on above: Performed By: #### L ACT #### [facility] [address] [place] [address] Dr. Gasper Garber Glucose [Mass/Vol] 151 mg/dL Critically high 74-106 [facility] Comment on above: Performed By: #### E BERNIE HERNDON #### [facility] [address] [place] [address] Dr. Gasper Garber PROF 14(COMP METB)on 022 Albumin [Mass/Vol] 2.9 g/dL Critically low 3.4-5.0 [facility] Comment on above: Performed By: #### U RCX #### [facility] [address] [place] [address] Dr. Gasper Garber Albumin/Globulin [Mass ratio] 1.0 {ratio} Normal [facility] Comment on above: Performed By: #### U RCX #### [facility] [address] [place] [address] Dr. Gasper Garber ALP [Catalytic activity/Vol] 63 U/L Normal 46-116 [facility] Comment on above: Performed By: #### U RCX #### [facility] [address] [place] [address] Dr. Gasper Garber ALT [Catalytic activity/Vol] 33 U/L Normal 14-59 [facility] Comment on above: Performed By: #### U RCX #### [facility] [address] [place] [address] Dr. Gasper Garber Anion gap [Moles/Vol] 13.1 mmol/L Normal [facility] Comment on above: Performed By: #### U RCX #### [facility] [address] [place] [address] Dr. Gasper Garber AST [Catalytic activity/Vol] 30 U/L Normal 15-37 [facility] Comment on above: Performed By: #### U RCX #### [facility] [address] [place] [address] Dr. Gasper Garber Bilirubin [Mass/Vol] 0.3 mg/dL Normal 0.2-1.0 [facility] Comment on above: Performed By: #### U RCX #### [facility] [address] [place] [address] Dr. Gasper Garber Calcium [Mass/Vol] 8.7 mg/dL Normal 8.5-10.1 [facility] Comment on above: Performed By: #### U RCX #### [facility] [address] [address] [address] Gasper Garber Chloride [Moles/Vol] 109 mmol/L Critically high 98-107 [facility] Comment on above: Performed By: #### U RCX #### [facility] [address] [address] [address] Gasper Garber CO2 [Moles/Vol] 24.5 mmol/L Normal 21.0-32.0 [facility] Comment on above: Performed By: #### U RCX #### [facility] [address] [address] [address] Gasper Garber Creatinine [Mass/Vol] 1.33 mg/dL Critically high 0.55-1.02 [facility] Comment on above: Performed By: #### U RCX #### [facility] [address] [address] [address] Gasper Garber EGFR-AF [place] 47 mL/min/1.73m2 Critically low >=60 [facility] Comment on above: Performed By: #### U RCX #### [facility] [address] [place] [address] Dr. Gasper Garber EGFR-NON AF [place] 39 mL/min/1.73m2 Critically low >=60 [facility] Comment on above: Performed By: #### U RCX #### [facility] [address] [address] [address] Gasper Garber Globulin (S) [Mass/Vol] 3.0 g/dL Normal [facility] Comment on above: Performed By: #### U RCX #### [facility] [address] [address] [address] Gasper Garber Glucose [Mass/Vol] 142 mg/dL Critically high 74-106 [facility] Comment on above: Performed By: #### U RCX #### [facility] [address] [address] [address] Gasper Garber Potassium [Moles/Vol] 3.6 mmol/L Normal 3.5-5.1 [facility] Comment on above: Performed By: #### U RCX #### [facility] [address] [place] [address] Dr. Gasper Garber Protein [Mass/Vol] 5.9 g/dL Critically low 6.4-8.2 [facility] Comment on above: Performed By: #### U RCX #### [facility] [address] [place] [address] Dr. Gasper Garber Sodium [Moles/Vol] 143 mmol/L Normal 136-145 [facility] Comment on above: Performed By: #### U RCX #### [facility] [address] [place] [address] Dr. Gasper Garber Urea nitrogen [Mass/Vol] 25.0 mg/dL Critically high 7.0-18.0 [facility] Comment on above: Performed By: #### U RCX #### [facility] [address] [place] [address] Dr. Gasper Garber Urea nitrogen/Creatinine [Mass ratio] 18.8 mg/mg Normal [facility] Comment on above: Performed By: #### U RCX #### [facility] [address] [place] [address] Dr. Gasper Garber BNPon 07-16-2021 Natriuretic peptide B (Bld) [Mass/Vol] 761.0 pg/mL Normal <=900.0 [facility] Comment on above: Performed By: #### P T, PTT #### [facility] [address] [place] [address] Dr. Gasper Garber CBC AUTO DIFFon 07-16-2021 BASO # 0.1 103/ul Normal 0.0-0.1 [facility] Comment on above: Performed By: #### L ACT #### [facility] [address] [place] [address] Dr. Gasper Garber Basophils/100 WBC (Bld) 0.6 % Normal 0.2-2.0 [facility] Comment on above: Performed By: #### L ACT #### [facility] [address] [place] [address] Dr. Gasper Garber EO # 0.2 103/ul Normal 0.0-0.7 [facility] Comment on above: Performed By: #### L ACT #### [facility] [address] [place] [address] Dr. Gasper Garber Performed By: #### P T, PTT #### [facility] [address] [place] [address] Dr. Gasper Garber Eosinophils/100 WBC (Bld) 2.3 % Normal 0.9-7.0 [facility] Comment on above: Performed By: #### L ACT #### [facility] [address] [place] [address] Dr. Gasper Garber Erythrocyte distribution width (RBC) [Ratio] 12.3 % Normal 11.0-15.0 [facility] Comment on above: Performed By: #### L ACT #### [facility] [address] [place] [address] Dr. Gasper Garber Hematocrit (Bld) [Volume fraction] 32.3 % Critically low 36.0-48.0 [facility] Comment on above: Performed By: #### L ACT #### [facility] [address] [place] [address] Dr. Gasper Garber Hemoglobin (Bld) [Mass/Vol] 10.3 g/dL Critically low 12.0-16.0 [facility] Comment on above: Performed By: #### L ACT #### [facility] [address] [place] [address] Dr. Gasper Garber IG # 0.01 10e3/ul Normal 0.00-0.03 [facility] Comment on above: Performed By: #### L ACT #### [facility] [address] [place] [address] Dr. Gasper Garber IG % 0.1 % Normal 0.0-0.5 [facility] Comment on above: Performed By: #### L ACT #### [facility] [address] [place] [address] Dr. Gasper Garber LYMPH # 1.1 103/ul Critically low 1.2-3.8 [facility] Comment on above: Performed By: #### L ACT #### [facility] [address] [place] [address] Dr. Gasper Garber Lymphocytes/100 WBC (Bld) 12.2 % Critically low 20.5-60.0 [facility] Comment on above: Performed By: #### L ACT #### [facility] [address] [place] [address] Dr. Gasper Garber MANUAL DIFF REQ NO Normal [facility] Comment on above: Performed By: #### L ACT #### [facility] [address] [place] [address] Dr. Gasper Garber Performed By: #### P T, PTT #### [facility] [address] [place] [address] Dr. Gasper Garber MCH (RBC) [Entitic mass] 30.8 pg Normal 26.7-34.0 [facility] Comment on above: Performed By: #### L ACT #### [facility] [address] [place] [address] Dr. Gasper Garber MCHC (RBC) [Mass/Vol] 31.9 g/dL Normal 29.9-35.2 [facility] Comment on above: Performed By: #### L ACT #### [facility] [address] [place] [address] Dr. Gasper Garber MCV (RBC) [Entitic vol] 96.7 fL Normal 81.0-99.0 [facility] Comment on above: Performed By: #### L ACT #### [facility] [address] [place] [address] Dr. Gasper Garber MONO # 0.8 103/ul Normal 0.3-0.8 [facility] Comment on above: Performed By: #### L ACT #### [facility] [address] [place] [address] Dr. Gasper Garber Monocytes/100 WBC (Bld) 8.8 % Normal 1.7-12.0 [facility] Comment on above: Performed By: #### L ACT #### [facility] [address] [address] [address] Gasper Garber NEUT # 6.5 103/ul Normal 1.4-6.5 [facility] Comment on above: Performed By: #### L ACT #### [facility] [address] [address] [address] Gasper Garber Neutrophils/100 WBC (Bld) 76.0 % Critically high 43.0-75.0 [facility] Comment on above: Performed By: #### L ACT #### [facility] [address] [address] [address] Gasper Garber Platelet mean volume (Bld) [Entitic vol] 10.6 fL Normal 9.5-13.5 [facility] Comment on above: Performed By: #### L ACT #### [facility] [address] [place] [address] Dr. Gasper Garber PLT 214 103/ul Normal 150-450 [facility] Comment on above: Performed By: #### L ACT #### [facility] [address] [place] [address] Dr. Gasper Garber RBC 3.34 106/ul Critically low 4.20-5.40 [facility] Comment on above: Performed By: #### L ACT #### [facility] [address] [place] [address] Dr. Gasper Garber WBC 8.6 103/ul Normal 4.0-11.0 [facility] Comment on above: Performed By: #### L ACT #### [facility] [address] [address] [address] Gasper Garber BASO # 0.0 103/ul Normal 0.0-0.1 [facility] Comment on above: Performed By: #### P T, PTT #### [facility] [address] [address] [address] Gasper Garber Basophils/100 WBC (Bld) 0.4 % Normal 0.2-2.0 [facility] Comment on above: Performed By: #### P T, PTT #### [facility] [address] [place] [address] Dr. Gasper Garber Eosinophils/100 WBC (Bld) 2.5 % Normal 0.9-7.0 [facility] Comment on above: Performed By: #### P T, PTT #### [facility] [address] [place] [address] Dr. Gasper Garber Erythrocyte distribution width (RBC) [Ratio] 12.4 % Normal 11.0-15.0 [facility] Comment on above: Performed By: #### P T, PTT #### [facility] [address] [place] [address] Dr. Gasper Garber Hematocrit (Bld) [Volume fraction] 29.3 % Critically low 36.0-48.0 [facility] Comment on above: Performed By: #### P T, PTT #### [facility] [address] [place] [address] Dr. Gasper Garber Hemoglobin (Bld) [Mass/Vol] 9.5 g/dL Critically low 12.0-16.0 [facility] Comment on above: Performed By: #### P T, PTT #### [facility] [address] [place] [address] Dr. Gasper Garber IG # 0.02 10e3/ul Normal 0.00-0.03 [facility] Comment on above: Performed By: #### P T, PTT #### [facility] [address] [place] [address] Dr. Gasper Garber IG % 0.2 % Normal 0.0-0.5 [facility] Comment on above: Performed By: #### P T, PTT #### [facility] [address] [place] [address] Dr. Gasper Garber LYMPH # 1.3 103/ul Normal 1.2-3.8 [facility] Comment on above: Performed By: #### P T, PTT #### [facility] [address] [place] [address] Dr. Gasper Garber Lymphocytes/100 WBC (Bld) 16.4 % Critically low 20.5-60.0 [facility] Comment on above: Performed By: #### P T, PTT #### [facility] [address] [place] [address] Dr. Gasper Garber MCH (RBC) [Entitic mass] 31.3 pg Normal 26.7-34.0 [facility] Comment on above: Performed By: #### P T, PTT #### [facility] [address] [place] [address] Dr. Gasper Garber MCHC (RBC) [Mass/Vol] 32.4 g/dL Normal 29.9-35.2 [facility] Comment on above: Performed By: #### P T, PTT #### [facility] [address] [place] [address] Dr. Gasper Garber MCV (RBC) [Entitic vol] 96.4 fL Normal 81.0-99.0 [facility] Comment on above: Performed By: #### P T, PTT #### [facility] [address] [place] [address] Dr. Gasper Garber MONO # 0.9 103/ul Critically high 0.3-0.8 [facility] Comment on above: Performed By: #### P T, PTT #### [facility] [address] [place] [address] Dr. Gasper Garber Monocytes/100 WBC (Bld) 10.5 % Normal 1.7-12.0 [facility] Comment on above: Performed By: #### P T, PTT #### [facility] [address] [place] [address] Dr. Gasper Garber NEUT # 5.7 103/ul Normal 1.4-6.5 [facility] Comment on above: Performed By: #### P T, PTT #### [facility] [address] [place] [address] Dr. Gasper Garber Neutrophils/100 WBC (Bld) 70.0 % Normal 43.0-75.0 [facility] Comment on above: Performed By: #### P T, PTT #### [facility] [address] [place] [address] Dr. Gasper Garber Platelet mean volume (Bld) [Entitic vol] 10.9 fL Normal 9.5-13.5 [facility] Comment on above: Performed By: #### P T, PTT #### [facility] [address] [place] [address] Dr. Gasper Garber PLT 203 103/ul Normal 150-450 [facility] Comment on above: Performed By: #### P T, PTT #### [facility] [address] [place] [address] Dr. Gasper Garber RBC 3.04 106/ul Critically low 4.20-5.40 [facility] Comment on above: Performed By: #### P T, PTT #### [facility] [address] [place] [address] Dr. Gasper Garber WBC 8.2 103/ul Normal 4.0-11.0 [facility] Comment on above: Performed By: #### P T, PTT #### [facility] [address] [place] [address] Dr. Gasper Garber CULTURE BLOODon 07-16-2021 Microscopic examination of blood, culture Culture Observations: NO GROWTH AT 5 DAYS. Normal [facility] Comment on above: Performed By: #### B [id number] #### [facility] [address] [place] [address] Dr. Gasper Garber Microscopic examination of blood, culture Culture Observations: NO GROWTH AT 5 DAYS. Normal [facility] Comment on above: Performed By: #### A CETON #### [facility] [address] [place] [address] Dr. Gasper Garber POINT OF CARE GLUCOSEon 06-20 Glucose [Mass/Vol] 155 mg/dL Critically high 74-106 [facility] Comment on above: Performed By: #### P T, PTT #### [facility] [address] [place] [address] Dr. Gasper Garber Glucose [Mass/Vol] 165 mg/dL Critically high 74-106 [facility] Comment on above: Performed By: #### P OCGLUC #### [facility] [address] [place] [address] Dr. Gasper Garber Glucose [Mass/Vol] 232 mg/dL Critically high 74-106 [facility] Comment on above: Performed By: #### E BERNIE EHRNDON #### [facility] [address] [address] [address] Gasper Garber PROF 14(COMP METB)on 022 Albumin [Mass/Vol] 2.9 g/dL Critically low 3.4-5.0 [facility] Comment on above: Performed By: #### P T, PTT #### [facility] [address] [place] [address] Dr. Gasper Garber Albumin/Globulin [Mass ratio] 1.0 {ratio} Normal [facility] Comment on above: Performed By: #### P T, PTT #### [facility] [address] [place] [address] Dr. Gasper Garber ALP [Catalytic activity/Vol] 62 U/L Normal 46-116 [facility] Comment on above: Performed By: #### P T, PTT #### [facility] [address] [place] [address] Dr. Gasper Garber ALT [Catalytic activity/Vol] 34 U/L Normal 14-59 [facility] Comment on above: Performed By: #### P T, PTT #### [facility] [address] [place] [address] Dr. Gasper Garber Anion gap [Moles/Vol] 10.8 mmol/L Normal [facility] Comment on above: Performed By: #### P T, PTT #### [facility] [address] [place] [address] Dr. Gasper Garber AST [Catalytic activity/Vol] 14 U/L Critically low 15-37 [facility] Comment on above: Performed By: #### P T, PTT #### [facility] [address] [place] [address] Dr. Gasper Garber Bilirubin [Mass/Vol] 0.4 mg/dL Normal 0.2-1.0 [facility] Comment on above: Performed By: #### P T, PTT #### [facility] [address] [address] [address] Gasper Garber Calcium [Mass/Vol] 8.4 mg/dL Critically low 8.5-10.1 [facility] Comment on above: Performed By: #### P T, PTT #### [facility] [address] [place] [address] Dr. Gasper Garber Chloride [Moles/Vol] 105 mmol/L Normal 98-107 [facility] Comment on above: Performed By: #### P T, PTT #### [facility] [address] [place] [address] Dr. Gasper Garber CO2 [Moles/Vol] 26.3 mmol/L Normal 21.0-32.0 [facility] Comment on above: Performed By: #### P T, PTT #### [facility] [address] [place] [address] Dr. Gasper Garber Creatinine [Mass/Vol] 2.20 mg/dL Critically high 0.55-1.02 [facility] Comment on above: Performed By: #### P T, PTT #### [facility] [address] [place] [address] Dr. Gasper Garebr EGFR-AF [place] 26 mL/min/1.73m2 Critically low >=60 [facility] Comment on above: Performed By: #### P T, PTT #### [facility] [address] [place] [address] Dr. Gasper Garber EGFR-NON AF [place] 22 mL/min/1.73m2 Critically low >=60 [facility] Comment on above: Performed By: #### P T, PTT #### [facility] [address] [place] [address] Dr. Gasper Garber Globulin (S) [Mass/Vol] 2.9 g/dL Normal [facility] Comment on above: Performed By: #### P T, PTT #### [facility] [address] [place] [address] Dr. Gasper Garber Glucose [Mass/Vol] 167 mg/dL Critically high 74-106 [facility] Comment on above: Performed By: #### P T, PTT #### [facility] [address] [place] [address] Dr. Gasper Garber Potassium [Moles/Vol] 3.1 mmol/L Critically low 3.5-5.1 [facility] Comment on above: Performed By: #### P T, PTT #### [facility] [address] [place] [address] Dr. Gasper Garber Protein [Mass/Vol] 5.8 g/dL Critically low 6.4-8.2 [facility] Comment on above: Performed By: #### P T, PTT #### [facility] [address] [place] [address] Dr. Gasper Garber Sodium [Moles/Vol] 139 mmol/L Normal 136-145 [facility] Comment on above: Performed By: #### P T, PTT #### [facility] [address] [place] [address] Dr. Gasper Garber Urea nitrogen [Mass/Vol] 41.0 mg/dL Critically high 7.0-18.0 [facility] Comment on above: Performed By: #### P T, PTT #### [facility] [address] [place] [address] Dr. Gasper Garber Urea nitrogen/Creatinine [Mass ratio] 18.6 mg/mg Normal [facility] Comment on above: Performed By: #### P T, PTT #### [facility] [address] [place] [address] Dr. Gasper Garber CBC AUTO DIFFon 07-15-2021 BASO # 0.0 103/ul Normal 0.0-0.1 [facility] Comment on above: Performed By: #### P T, PTT #### [facility] [address] [place] [address] Dr. Gasper Garber Basophils/100 WBC (Bld) 0.4 % Normal 0.2-2.0 [facility] Comment on above: Performed By: #### P T, PTT #### [facility] [address] [place] [address] Dr. Gasper Garber EO # 0.2 103/ul Normal 0.0-0.7 [facility] Comment on above: Performed By: #### P T, PTT #### [facility] [address] [place] [address] Dr. Gasper Garber Eosinophils/100 WBC (Bld) 1.6 % Normal 0.9-7.0 [facility] Comment on above: Performed By: #### P T, PTT #### [facility] [address] [place] [address] Dr. Gasper Garber Erythrocyte distribution width (RBC) [Ratio] 12.4 % Normal 11.0-15.0 [facility] Comment on above: Performed By: #### P T, PTT #### [facility] [address] [place] [address] Dr. Gasper Garber Hematocrit (Bld) [Volume fraction] 34.7 % Critically low 36.0-48.0 [facility] Comment on above: Performed By: #### P T, PTT #### [facility] [address] [place] [address] Dr. Gasper Garber Hemoglobin (Bld) [Mass/Vol] 11.4 g/dL Critically low 12.0-16.0 [facility] Comment on above: Performed By: #### P T, PTT #### [facility] [address] [place] [address] Dr. Gasper Garber IG # 0.02 10e3/ul Normal 0.00-0.03 [facility] Comment on above: Performed By: #### P T, PTT #### [facility] [address] [place] [address] Dr. Gasper Garber IG % 0.2 % Normal 0.0-0.5 [facility] Comment on above: Performed By: #### P T, PTT #### [facility] [address] [place] [address] Dr. Gasper Garber LYMPH # 1.6 103/ul Normal 1.2-3.8 [facility] Comment on above: Performed By: #### P T, PTT #### [facility] [address] [place] [address] Dr. Gasper Garber Lymphocytes/100 WBC (Bld) 17.7 % Critically low 20.5-60.0 [facility] Comment on above: Performed By: #### P T, PTT #### [facility] [address] [place] [address] Dr. Gasper Garber MANUAL DIFF REQ NO Normal [facility] Comment on above: Performed By: #### P T, PTT #### [facility] [address] [place] [address] Dr. Gasper Garber MCH (RBC) [Entitic mass] 31.1 pg Normal 26.7-34.0 [facility] Comment on above: Performed By: #### P T, PTT #### [facility] [address] [place] [address] Dr. Gasper Garber MCHC (RBC) [Mass/Vol] 32.9 g/dL Normal 29.9-35.2 [facility] Comment on above: Performed By: #### P T, PTT #### [facility] [address] [place] [address] Dr. Gasper Garber MCV (RBC) [Entitic vol] 94.8 fL Normal 81.0-99.0 [facility] Comment on above: Performed By: #### P T, PTT #### [facility] [address] [place] [address] Dr. Gasper Garber MONO # 1.0 103/ul Critically high 0.3-0.8 [facility] Comment on above: Performed By: #### P T, PTT #### [facility] [address] [place] [address] Dr. Gasper Garber Monocytes/100 WBC (Bld) 10.3 % Normal 1.7-12.0 [facility] Comment on above: Performed By: #### P T, PTT #### [facility] [address] [place] [address] Dr. Gasper Garber NEUT # 6.4 103/ul Normal 1.4-6.5 [facility] Comment on above: Performed By: #### P T, PTT #### [facility] [address] [place] [address] Dr. Gasper Garber Neutrophils/100 WBC (Bld) 69.8 % Normal 43.0-75.0 [facility] Comment on above: Performed By: #### P T, PTT #### [facility] [address] [address] [address] Gasper Garber Platelet mean volume (Bld) [Entitic vol] 10.4 fL Normal 9.5-13.5 [facility] Comment on above: Performed By: #### P T, PTT #### [facility] [address] [address] [address] Gasper Garber PLT 269 103/ul Normal 150-450 [facility] Comment on above: Performed By: #### P T, PTT #### [facility] [address] [address] [address] Gasper Garber RBC 3.66 106/ul Critically low 4.20-5.40 [facility] Comment on above: Performed By: #### P T, PTT #### [facility] [address] [address] [address] Gasper Garber WBC 9.2 103/ul Normal 4.0-11.0 [facility] Comment on above: Performed By: #### P T, PTT #### [facility] [address] [place] [address] ABD/PELVIS WO CONon [...] NASRIN CHIU Date: 2021-07-15 18:16 Normal [facility] SARS-CoV-2 (COVID-19) RNA ANA LUISA+probe Ql (Unsp spec) Not detected Normal NOT DETECTED [facility] Comment on above: Result Comment: When diagnostic [...] for this test is supported by the [place] of Health and Human Service's declaration that [...] used). Performed By: #### L ACT #### [facility] [address] [place] [address] Dr. Gasper Garber ER URINE PROFILEon 2 Bilirubin Ql (U) Negative Normal NEGATIVE [facility] Comment on above: Performed By: #### E BERNIE HERNDON #### [facility] [address] [place] [address] Dr. Gasper Garber Clarity (U) CLEAR Normal CLEAR [facility] Comment on above: Performed By: #### E BERNIE HERNDON #### [facility] [address] [place] [address] Dr. Gasper Garber Color (U) LT. YELLOW Normal YELLOW [facility] Comment on above: Performed By: #### TONI MALDONADORO #### [facility] [address] [place] [address] Dr. Gasper RIVAS A micrscopic examina tion will be performed if indicated. Normal [facility] Comment on above: Performed By: #### TONI MALDONADORO #### [facility] [address] [place] [address] Dr. Gasper Garber Glucose Ql (U) Negative Normal NEGATIVE [facility] Comment on above: Performed By: #### TONI MALDONADORO #### [facility] [address] [place] [address] Dr. Gasper Garber Hemoglobin Ql (U) Negative Normal NEGATIVE [facility] Comment on above: Performed By: #### JOANNE MALDONADOICRO #### [facility] [address] [place] [address] Dr. Gasper Garber Ketones Ql (U) Negative Normal NEGATIVE [facility] Comment on above: Performed By: #### TONI MALDONADORO #### [facility] [address] [place] [address] Dr. Gasper Garber LEUKOCYTES Negative Normal NEGATIVE [facility] Comment on above: Performed By: #### TONI MALDONADORO #### [facility] [address] [place] [address] Dr. Gasper Garber Nitrite Ql (U) Negative Normal NEGATIVE [facility] Comment on above: Performed By: #### TONI MALDONADORO #### [facility] [address] [place] [address] Dr. Gasper Garber pH (U) 5.5 [pH] Normal 5-9 [facility] Comment on above: Performed By: #### TONI MALDONADORO #### [facility] [address] [place] [address] Dr. Gasper Garber SPEC GRAVITY 1.020 Normal 1.005-<=1.0 25 [facility] Comment on above: Performed By: #### TONI MALDONADORO #### [facility] [address] [place] [address] Dr. Gasper Garber UA PROTEIN TRACE Normal NEGATIVE/ TRACE [facility] Comment on above: Performed By: #### TONI MALDONADORO #### [facility] [address] [place] [address] Dr. Gasper Garber UR MICRO IND INDICATED Normal [facility] Comment on above: Performed By: #### TONI MALDONADORO #### [facility] [address] [place] [address] Dr. Gasper Garber Urobilinogen Qn (U) 0.2 {Kaushik'U}/dL Normal 0.2 - 1. 0 [facility] Comment on above: Performed By: #### TONI MALDONADORO #### [facility] [address] [place] [address] Dr. Gasper Garber FREE T3on 07-15-2021 FREE T3 2.45 pg/mlL Normal 2.18-3.98 [facility] Comment on above: Performed By: #### P T, PTT #### [facility] [address] [place] [address] Dr. Gasper Garber FREE T4on 07-15-2021 Free T4 [Mass/Vol] 1.19 ng/dL Normal 0.76-1.46 [facility] Comment on above: Performed By: #### A CETON #### [facility] [address] [place] [address] Dr. Gasper Garber LACTATE/LACTIC ACIDon 2021 Lactate [Moles/Vol] 2.0 mmol/L Critically high 0.4-1.9 [facility] Comment on above: Performed By: #### L ACT #### [facility] [address] [place] [address] Dr. Gasper Garber Lactate [Moles/Vol] 4.0 mmol/L Critically high 0.4-1.9 [facility] Comment on above: Performed By: #### L ACT #### [facility] [address] [place] [address] Dr. Gasper Garber LIPASEon 07-15-2021 Lipase [Catalytic activity/Vol] 93.0 U/L Normal 73.0-393.0 [facility] Comment on above: Performed By: #### A CETON #### [facility] [address] [place] [address] Dr. Gasper Garber POINT OF CARE GLUCOSEon 06-20 Glucose [Mass/Vol] 200 mg/dL Critically high 74-106 [facility] Comment on above: Performed By: #### P T, PTT #### [facility] [address] [place] [address] Dr. Gasper Garber PROF 14(COMP METB)on 022 Albumin [Mass/Vol] 3.5 g/dL Normal 3.4-5.0 [facility] Comment on above: Performed By: #### A CETON #### [facility] [address] [place] [address] Dr. Gasper Garber Albumin/Globulin [Mass ratio] 1.0 {ratio} Normal [facility] Comment on above: Performed By: #### A CETON #### [facility] [address] [place] [address] Dr. Gasper Garber ALP [Catalytic activity/Vol] 81 U/L Normal 46-116 [facility] Comment on above: Performed By: #### A CETON #### [facility] [address] [place] [address] Dr. Gasper Garber ALT [Catalytic activity/Vol] 43 U/L Normal 14-59 [facility] Comment on above: Performed By: #### A CETON #### [facility] [address] [place] [address] Dr. Gasper Garber Anion gap [Moles/Vol] 13.6 mmol/L Normal [facility] Comment on above: Performed By: #### A CETON #### [facility] [address] [place] [address] Dr. Gasper Garber AST [Catalytic activity/Vol] 19 U/L Normal 15-37 [facility] Comment on above: Performed By: #### A CETON #### [facility] [address] [place] [address] Dr. Gasper Garber Bilirubin [Mass/Vol] 0.6 mg/dL Normal 0.2-1.0 [facility] Comment on above: Performed By: #### A CETON #### [facility] [address] [address] [address] Gasper Garber Calcium [Mass/Vol] 8.9 mg/dL Normal 8.5-10.1 [facility] Comment on above: Performed By: #### A CETON #### [facility] [address] [address] [address] Gasper Garber Chloride [Moles/Vol] 103 mmol/L Normal 98-107 [facility] Comment on above: Performed By: #### A CETON #### [facility] [address] [place] [address] Dr. Gasper Garber CO2 [Moles/Vol] 25.9 mmol/L Normal 21.0-32.0 [facility] Comment on above: Performed By: #### A CETON #### [facility] [address] [address] [address] Gasper Garber Creatinine [Mass/Vol] 2.91 mg/dL Critically high 0.55-1.02 [facility] Comment on above: Performed By: #### A CETON #### [facility] [address] [place] [address] Dr. Gasper Garber EGFR-AF [place] 19 mL/min/1.73m2 Critically low >=60 [facility] Comment on above: Performed By: #### A CETON #### [facility] [address] [place] [address] Dr. Gasper Garber EGFR-NON AF [place] 16 mL/min/1.73m2 Critically low >=60 [facility] Comment on above: Performed By: #### A CETON #### [facility] [address] [place] [address] Dr. Gasper Garber Globulin (S) [Mass/Vol] 3.5 g/dL Normal [facility] Comment on above: Performed By: #### A CETON #### [facility] [address] [place] [address] Dr. Gasper Garber Glucose [Mass/Vol] 201 mg/dL Critically high 74-106 [facility] Comment on above: Performed By: #### A CETON #### [facility] [address] [address] [address] Gasper Garber Potassium [Moles/Vol] 3.5 mmol/L Normal 3.5-5.1 [facility] Comment on above: Performed By: #### A CETON #### [facility] [address] [address] [address] Gasper Garber Protein [Mass/Vol] 7.0 g/dL Normal 6.4-8.2 [facility] Comment on above: Performed By: #### A CETON #### [facility] [address] [address] [address] Gasper Garber Sodium [Moles/Vol] 139 mmol/L Normal 136-145 [facility] Comment on above: Performed By: #### A CETON #### [facility] [address] [address] [address] Gasper Garber Urea nitrogen [Mass/Vol] 46.0 mg/dL Critically high 7.0-18.0 [facility] Comment on above: Performed By: #### A CETON #### [facility] [address] [place] [address] Dr. Gasper Garber Urea nitrogen/Creatinine [Mass ratio] 15.8 mg/mg Normal [facility] Comment on above: Performed By: #### A CETON #### [facility] [address] [address] [address] Gasper Garber PROTIMEon 07-15-2021 INR Coag (PPP) [Relative time] 1.03 {INR} Normal [facility] Comment on above: Performed By: #### P T, PTT #### [facility] [address] [place] [address] Dr. Gasper Garber INR GUIDELINES SEE BELOW Normal [facility] Comment on above: Result Comment: JESUS RED INR: 2.0 - 3.0 CONDITIONS NOT LISTED BELOW 2.5 - 3.5 FOR PROSTHETIC HEART VALVE REPLACEMENT 2.5 - 3.5 RECURRENT THROMBOSIS Performed By: #### P T, PTT #### [facility] [address] [place] [address] Dr. Gasper Garber PT Coag (PPP) [Time] 11.1 s Normal 9.0-11.6 [facility] Comment on above: Performed By: #### P T, PTT #### [facility] [address] [place] [address] Dr. Gasper Garber PTTon 07-15-2021 aPTT Coag (Bld) [Time] 24.2 s Normal 22.3-36.2 [facility] Comment on above: Performed By: #### P T, PTT #### [facility] [address] [place] [address] Dr. Gasper Garber TROPONIN, HIGH SENSITIVITYon 07-15-2021 HSTROP 23.9 pg/mL Normal 4.0-51.3 [facility] Comment on above: Result Comment: CUT- OFF POINTS HAVE BEEN ESTABLISHED BASED ON THE FOURTH UNIVERSAL DEFINITIONS OF MYOCARDIAL INFARCTION. THE UPPER REFERENCE LIMIT (URL) OF TROPONIN, DEFINED THE 99TH PERCENTILE OF cTnI DISTRIBUTION IN A REFERENCE POPULATION, HAS BEEN CONFIRMED THE DECISION THRESHOLD FOR [place] DIAGNOSIS. Performed By: #### L ACT #### [facility] [address] [place] [address] Dr. Gasper Garber TSHon 07-15-2021 TSH 3.864 uIU/mL Critically high 0.358-3.740 [facility] Comment on above: Performed By: #### A CETON #### [facility] [address] [place] [address] Dr. Gasper Garber TSH RANGE SEE BELOW Normal [facility] Comment on above: Result Comment: <0.3 4 UIU/ml HYPERTHYROID 0.34-5.60 UIU/ml EUTHYROID >5.60 UIU/ml HYPOTHYROID Performed By: #### A CETON #### [facility] [address] [place] [address] Dr. Gasper Garber URINE MICROSCOPIC ONLYon BACTERIA MODERATE Abnormal NONE SEEN [facility] Comment on above: Performed By: #### E RUR, UMICRO #### [facility] [address] [place] [address] Dr. Gasper Garber Bacteria identified Cx Nom (U) INDICATED Normal [facility] Comment on above: Performed By: #### E YANICK UMICRO #### [facility] [address] [place] [address] Dr. Gasper Garber CAST SEEN Abnormal NONE SEEN [facility] Comment on above: Performed By: #### E YANICK UMICRO #### [facility] [address] [place] [address] Dr. Gasper Garber Crystals LM Nom (Urine sed) NONE SEEN Normal NONE SEEN [facility] Comment on above: Performed By: #### E YANICK UMICRO #### [facility] [address] [place] [address] Dr. Gasper Garber Epithelial cells LM Ql (Urine sed) RARE Normal NONE SEEN /RARE [facility] Comment on above: Performed By: #### Bernice HERNDON UMICRO #### [facility] [address] [place] [address] Dr. Gasper Garber MUCOUS NONE SEEN Normal NONE SEEN [facility] Comment on above: Performed By: #### Bernice HERNDON UMICRO #### [facility] [address] [place] [address] Dr. Gasper Garber RBC NONE SEEN Abnormal 0-2 [facility] Comment on above: Performed By: #### Bernice HERNDON UMICRO #### [facility] [address] [place] [address] Dr. Gasper Garber WBC 2-5 Abnormal NONE SEEN [facility] Comment on above: Performed By: #### Bernice HERNDON UMICRO #### [facility] [address] [place] [address] Dr. Gasper Garber XR chest 1V portableon 07-01 XR chest 1V portable [facility] [place] [address] XRay Report Signed Patient: Elif Turner MR#: [id number] : 1945 Acct:[id number] Age/Sex: 75 / F ADM Date: 06/24/21 Loc: Room: [address] [place] [address] Type: DIS IN Attending Dr: Rusty Amor [...] Valle Jr., M.D.07/01/2021 9:08 AM Dictation Location: [address] [address] Transcribed By: [facility] 07/01/21 09 Dictated By: Adarsh Valle Jr, MD 07/01/21 09 Signed By: 07/01/21 09 Normal [facility] Activated partial thrombopla stin time (aPTT) in platelet poor plasma by coagulation aOrdered By: Marlon Leon on 06-25-2021 aPTT Coag (PPP) [Time] 24.8 s 25.1-36.5 [facility] Basophils Auto (Bld) [#/Vol] Ordered By: Marlon Leon on 06-25-2021 Basophils (Bld) [#/Vol] 0.0 10*3/uL 0.0-0.2 [facility] Basophils/100 WBC Auto (Bld) Ordered By: Marlon Leon on 06-25-2021 Basophils/100 WBC (Bld) 0.3 % [facility] Blood hemoglobin measurement (mass/volume)Ordered By: Marlon Leon on 06-25-2021 Hemoglobin (Bld) [Mass/Vol] 11.1 g/dL 11.8-15.4 [facility] Blood leukocytes automated c ount (number/volume)Ordered By: Marlon Leon on 06-25-2021 WBC (Bld) [#/Vol] 10.5 10*3/uL 4.5-11.0 [facility] Complete Blood Count Auto Di ffon 06-25-2021 Basophils (Bld) [#/Vol] 0.0 10*3/uL Normal 0.0-0.2 [facility] Comment on above: Result Comment: PERF ORMED BY: [facility] [place] [address] PATHOLOGIST PHYSICIAN OBSTETRICIAN NARGIS CLEMENS M.D. Performed By: #### G LULS #### Point of Care testing , Basophils/100 WBC (Bld) 0.3 % Normal . [facility] Comment on above: Performed By: #### G LULS #### Point of Care testing , Eosinophils (Bld) [#/Vol] 0.0 10*3/uL Normal 0.0-0.45 [facility] Comment on above: Performed By: #### G LULS #### Point of Care testing , Eosinophils/100 WBC (Bld) 0.0 % Normal . [facility] Comment on above: Performed By: #### G LULS #### Point of Care testing , Erythrocyte distribution width (RBC) [Ratio] 12.7 % Normal 11.9-15.3 [facility] Comment on above: Performed By: #### G LULS #### Point of Care testing , Hematocrit (Bld) [Volume fraction] 32.7 % Low 34.0-46.4 [facility] Comment on above: Performed By: #### G LULS #### Point of Care testing , Hemoglobin (Bld) [Mass/Vol] 11.1 g/dL Low 11.8-15.4 [facility] Comment on above: Performed By: #### G LULS #### Point of Care testing , Lymphocytes (Bld) [#/Vol] 0.4 10*3/uL Low 1.00-4.8 [facility] Comment on above: Performed By: #### G LULS #### Point of Care testing , Lymphocytes/100 WBC (Bld) 4.3 % Normal . [facility] Comment on above: Performed By: #### Chitra MARSHALLLS #### Point of Care testing , MCH (RBC) [Entitic mass] 31.3 pg Normal 24.7-34.3 [facility] Comment on above: Performed By: #### G ROLANDOLS #### Point of Care testing , MCV (RBC) [Entitic vol] 92.1 fL Normal 80-100 [facility] Comment on above: Performed By: #### G ROLANDOLS #### Point of Care testing , Mean Corpuscular HGB Conc 34.0 g/dL Normal 32.0-35.0 [facility] Comment on above: Performed By: #### Chitra MARSHALLLS #### Point of Care testing , Monocytes (Bld) [#/Vol] 0.5 10*3/uL Normal 0.0-0.8 [facility] Comment on above: Performed By: #### Chitra MARSHALLLS #### Point of Care testing , Monocytes/100 WBC (Bld) 4.5 % Normal . [facility] Comment on above: Performed By: #### Chitra MARSHALLLS #### Point of Care testing , Neutrophils (Bld) [#/Vol] 9.6 10*3/uL High 1.8-7.7 [facility] Comment on above: Performed By: #### Chitra CAMPBELL #### Point of Care testing , Neutrophils/100 WBC (Bld) 90.9 % Normal . [facility] Comment on above: Performed By: #### Chitra MARSHALLLS #### Point of Care testing , Nucleated RBC/100 WBC (Bld) [Ratio] 0.0 % Normal 0-0.5 [facility] Comment on above: Performed By: #### G ROLANDOLS #### Point of Care testing , Platelet mean volume (Bld) [Entitic vol] 9.0 fL Normal 6.3-10.7 [facility] Comment on above: Performed By: #### Chitra CAMPBELL #### Point of Care testing , Platelets (Bld) [#/Vol] 205 10*3/uL Normal 150-450 [facility] Comment on above: Performed By: #### G LULS #### Point of Care testing , RBC (Bld) [#/Vol] 3.55 10*6/uL Low 3.60-5.00 [facility] Comment on above: Performed By: #### G LULS #### Point of Care testing , WBC (Bld) [#/Vol] 10.5 10*3/uL Normal 4.5-11.0 [facility] Comment on above: Performed By: #### G LULS #### Point of Care testing , ECG 12 lead ECGon 06-25-2021 ECG 12 lead ECG [facility] [place] [address] Electrocardiograph Report Signed Patient: Elif Turner MR#: [id number] : 1945 Acct:[id number] Age/Sex: 75 / F ADM Date: 06/24/21 Loc: Room: [address] [place] [address] Type: DIS IN Attending Dr: Rusty Amor [...] are now present Confirmed by [facility] ([id number]) on 06/25/2021 11:01:31 AM Referred By: Electronically Signed By:WIL DOMÍNGUEZ MD FACC Transcribed By: MUS Signed By Wil Domínguez MD, FACC 06/25/21 1101 Normal [facility] Eosinophils Auto (Bld) [#/Vo l]Ordered By: Marlon Leon on 06-25-2021 Eosinophils (Bld) [#/Vol] 0.0 10*3/uL 0.0-0.45 [facility] Eosinophils/100 WBC Auto (Bl d)Ordered By: Marlon Leon on 06-25-2021 Eosinophils/100 WBC (Bld) 0.0 % [facility] Erythrocyte distribution wid th Auto (RBC) [Ratio]Ordered By: Marlon Leon on 06-25-2021 Erythrocyte distribution width (RBC) [Ratio] 12.7 % 11.9-15.3 [facility] Glucose Glucometer (BldC) [M ass/Vol]Ordered By: Rusty Amor on 06-25-2021 Glucose [Mass/Vol] 227 mg/dL [facility] Comment on above: Random Glucose Refer ence Range is dependent on time and content of last meal. Glucose of more than 200 mg/dL in a nonstressed, ambulatory subject supports the diagnosis of Diabetes Mellitus. Glucose Poct Glucometerson 0 06-25-2021 Glucose [Mass/Vol] 227 mg/dL Normal [facility] Comment on above: Result Comment: [place] om Glucose Reference Range is dependent on time and content of last meal. Glucose of more than 200 mg/dL in a nonstressed, ambulatory subject supports the diagnosis of Diabetes Mellitus. PERFORMED BY: [place] [address] PATHOLOGIST PHYSICIAN OBSTETRICIAN NARGIS CLEMENS M.D. Performed By: #### P TT #### [facility] [address] [place] [address] Glucose [Mass/Vol] 184 mg/dL Normal [facility] Comment on above: Result Comment: [place] om Glucose Reference Range is dependent on time and content of last meal. Glucose of more than 200 mg/dL in a nonstressed, ambulatory subject supports the diagnosis of Diabetes Mellitus. PERFORMED BY: [place] [address] PATHOLOGIST PHYSICIAN OBSTETRICIAN NARGIS CLEMENS M.D. Performed By: #### P TT #### [facility] [address] [place] [address] Glucose [Mass/Vol] 294 mg/dL Normal [facility] Comment on above: Result Comment: [facility] Glucose Reference Range is dependent on time and content of last meal. Glucose of more than 200 mg/dL in a nonstressed, ambulatory subject supports the diagnosis of Diabetes Mellitus. PERFORMED BY: [facility] [place] [address] PATHOLOGIST PHYSICIAN OBSTETRICIAN NARGIS CLEMENS M.D. Performed By: #### G SHANNAN #### Point of Care testing , Hematocrit Auto (Bld) [Volum e fraction]Ordered By: Marlon Leon on 06-25-2021 Hematocrit (Bld) [Volume fraction] 32.7 % 34.0-46.4 [facility] Laboratory - CoagulationOrde red By: Marlon Leon on 06-25-2021 PT Coag (PPP) [Time] 11.5 s 9.0-12.9 [facility] Laboratory - Hematology and Cell countsOrdered By: Marlon Leon on 06-25-2021 Nucleated RBC/100 WBC (Bld) [Ratio] 0.0 % 0-0.5 [facility] Lymphocytes Auto (Bld) [#/Vo l]Ordered By: Marlon Leon on 06-25-2021 Lymphocytes (Bld) [#/Vol] 0.4 10*3/uL 1.00-4.8 [facility] Lymphocytes/100 WBC Auto (Bl d)Ordered By: Marlon Leon on 06-25-2021 Lymphocytes/100 WBC (Bld) 4.3 % [facility] MCH Auto (RBC) [Entitic mass ]Ordered By: Marlon Leon on 06-25-2021 MCH (RBC) [Entitic mass] 31.3 pg 24.7-34.3 [facility] MCHC Auto (RBC) [Mass/Vol]Or dered By: Marlon Leon on 06-25-2021 MCHC (RBC) [Mass/Vol] 34.0 g/dL 32.0-35.0 [facility] MCV Auto (RBC) [Entitic vol] Ordered By: Marlon Leon on 06-25-2021 MCV (RBC) [Entitic vol] 92.1 fL 80-100 [facility] Monocytes Auto (Bld) [#/Vol] Ordered By: Marlon Leon on 06-25-2021 Monocytes (Bld) [#/Vol] 0.5 10*3/uL 0.0-0.8 [facility] Monocytes/100 WBC Auto (Bld) Ordered By: Marlon Leon on 06-25-2021 Monocytes/100 WBC (Bld) 4.5 % [facility] Neutrophils Auto (Bld) [#/Vo l]Ordered By: Marlon Leon on 06-25-2021 Neutrophils (Bld) [#/Vol] 9.6 10*3/uL 1.8-7.7 [facility] Neutrophils/100 WBC Auto (Bl d)Ordered By: Marlon Leon on 06-25-2021 Neutrophils/100 WBC (Bld) 90.9 % [facility] Partial Thromboplastin Timeo n 06-25-2021 aPTT Coag (Bld) [Time] 24.8 s Low 25.1-36.5 [facility] Comment on above: Result Comment: PERF ORMED BY: [facility] [address] [place] [address] PATHOLOGIST PHYSICIAN OBSTETRICIAN NARGIS CLEMENS M.D. Performed By: #### G SHANNAN #### Point of Care testing , Platelet mean volume Auto (B ld) [Entitic vol]Ordered By: Marlon eLon on 06-25-2021 Platelet mean volume (Bld) [Entitic vol] 9.0 fL 6.3-10.7 [facility] Platelet poor plasma interna tional normalized ratio (INR) by coagulation assay (relatOrdered By: Marlon Leon on 06-25-2021 INR Coag (PPP) [Relative time] 1.0 {INR} [facility] Comment on above: INR Therapeutic [...] 06-25-2021 Platelets (Bld) [#/Vol] 205 10*3/uL 150-450 [facility] Progress Noteson 06-25-2021 [employer] Machine Operator Authentication Interface Message Text EMERGENCY TRIAGE, TREAT AND TRANSPORT (ET3) DOCUMENTATION OF TELEHEALTH VISIT Date / Time: 06/23/20211929 Name: Elif Turner : 1945 SSN: (Not on file) EMS Agency: [facility] [x] Verbal consent obtained [] [...] Completed by: Andreas Freitas MD Normal [facility] Prothrombin Time INRon 06-25 INR Coag (PPP) [Relative time] 1.0 {INR} Normal [facility] Comment on above: Result Comment: [...] Coag (PPP) [Time] 11.5 s Normal 9.0-12.9 [facility] Comment on above: Performed By: #### G LULS #### Point of Care testing , RBC Auto (Bld) [#/Vol]Ordere d By: Marlon Leon on 06-25-2021 RBC (Bld) [#/Vol] 3.55 10*6/uL 3.60-5.00 [facility] Troponin I High Sensitivityo n 06-25-2021 Troponin I High Sensitivity 735 pg/mL Off scale high [address] Comment on above: Result Comment: Crit ical value result called at 0638 on 06/25/21 PERFORMED BY: [place] [address] PATHOLOGIST PHYSICIAN OBSTETRICIAN NARGIS CLEMENS M.D. Performed By: #### P TT #### [address] Troponin I.cardiac [Mass/vol ume] in Serum or Plasma by High sensitivity methodOrdered By: Gen Bolivar on 06-25-2021 Troponin I.cardiac High sensitivity method [Mass/Vol] 735 pg/mL [address] [place] [address] Comment on above: Critical value result called at 0638 on 06/25/21 A1C with Estimated Average G luon 06-24-2021 Glucose [Mass/Vol] 160 mg/dL Normal [facility] Comment on above: Result Comment: PERF ORMED BY: [facility] [address] [place] [address] PATHOLOGIST PHYSICIAN OBSTETRICIAN NARGIS CLEMENS M.D. Performed By: #### G SHANNAN #### Point of Care testing , HbA1c (Bld) [Mass fraction] 7.2 % High 4.3-5.6 [facility] Comment on above: Result Comment: Incr eased risk for diabetes: 5.7 - 6.4 diabetes: >6.4 glycemic control for adults with diabetes: <7.0 Performed By: #### G LULS #### Point of Care testing , Albumin [Mass/volume] in Ser um or PlasmaOrdered By: Marlon Leon on 06-24-2021 Albumin [Mass/Vol] 3.1 g/dL 3.2-5.5 [facility] Cholesterol [Mass/volume] in Serum or PlasmaOrdered By: Marlon Leon on 06-24-2021 Cholesterol [Mass/Vol] 128 mg/dL 140-200 [facility] Comment on above: Chol less than 200 m g/dl low risk Chol 201-239 mg/dl borderline risk Chol 240 mg/dl and greater high risk Cholesterol in LDL Calc [Mas s/Vol]Ordered By: Marlon Leon on 06-24-2021 Cholesterol in LDL [Mass/Vol] 56 mg/dL 0-100 [facility] Comment on above: LDL ATP III CLASSIFI CATION LDL less than 100 mg/dL Optimal LDL 100-129 mg/dL Near or above optimal LDL 130-159 mg/dL Borderline high LDL 160-189 mg/dL High LDL greater than 189 mg/dL Very high Cholesterol in VLDL Calc [Ma ss/Vol]Ordered By: Marlon Leon on 06-24-2021 Cholesterol in VLDL [Mass/Vol] 13 mg/dL [facility] Complete Blood Count Auto Di ffon 06-24-2021 Basophils (Bld) [#/Vol] 0.1 10*3/uL Normal 0.0-0.2 [facility] Comment on above: Result Comment: PERF ORMED BY: [facility] [address] [place] [address] PATHOLOGIST PHYSICIAN OBSTETRICIAN NARGIS CLEMENS M.D. Performed By: #### P TT #### [facility] [address] [place] [address] [place] Basophils/100 WBC (Bld) 0.8 % Normal . [facility] Comment on above: Performed By: #### P TT #### [facility] [address] [place] [address] [place] Eosinophils (Bld) [#/Vol] 0.2 10*3/uL Normal 0.0-0.45 [facility] Comment on above: Performed By: #### P TT #### [facility] [address] [place] [address] [place] Eosinophils/100 WBC (Bld) 3.2 % Normal . [facility] Comment on above: Performed By: #### P TT #### [address] Erythrocyte distribution width (RBC) [Ratio] 12.7 % Normal 11.9-15.3 [facility] Comment on above: Performed By: #### P TT #### [address] Hematocrit (Bld) [Volume fraction] 30.5 % Low 34.0-46.4 [facility] Comment on above: Performed By: #### P TT #### [address] Hemoglobin (Bld) [Mass/Vol] 10.4 g/dL Low 11.8-15.4 [facility] Comment on above: Performed By: #### P TT #### [place] [address] [place] Lymphocytes (Bld) [#/Vol] 1.8 10*3/uL Normal 1.00-4.8 [facility] Comment on above: Performed By: #### P TT #### [address] Lymphocytes/100 WBC (Bld) 27.4 % Normal . [facility] Comment on above: Performed By: #### P TT #### [address] MCH (RBC) [Entitic mass] 31.3 pg Normal 24.7-34.3 [facility] Comment on above: Performed By: #### P TT #### [address] MCV (RBC) [Entitic vol] 92.0 fL Normal 80-100 [facility] Comment on above: Performed By: #### P TT #### [address] Mean Corpuscular HGB Conc 34.1 g/dL Normal 32.0-35.0 [facility] Comment on above: Performed By: #### P TT #### [address] Monocytes (Bld) [#/Vol] 0.6 10*3/uL Normal 0.0-0.8 [facility] Comment on above: Performed By: #### P TT #### [address] Monocytes/100 WBC (Bld) 8.9 % Normal . [facility] Comment on above: Performed By: #### P TT #### [address] Neutrophils (Bld) [#/Vol] 3.8 10*3/uL Normal 1.8-7.7 [facility] Comment on above: Performed By: #### P TT #### [address] Neutrophils/100 WBC (Bld) 59.7 % Normal . [facility] Comment on above: Performed By: #### P TT #### [address] Nucleated RBC/100 WBC (Bld) [Ratio] 0.0 % Normal 0-0.5 [facility] Comment on above: Performed By: #### P TT #### [address] Platelet mean volume (Bld) [Entitic vol] 8.4 fL Normal 6.3-10.7 [facility] Comment on above: Performed By: #### P TT #### [facility] [address] [place] [address] Platelets (Bld) [#/Vol] 191 10*3/uL Normal 150-450 [facility] Comment on above: Performed By: #### P TT #### [facility] [address] [place] [address] RBC (Bld) [#/Vol] 3.31 10*6/uL Low 3.60-5.00 [facility] Comment on above: Performed By: #### P TT #### [facility] [address] [place] [address] WBC (Bld) [#/Vol] 6.4 10*3/uL Normal 4.5-11.0 [facility] Comment on above: Performed By: #### P TT #### [address] Comprehensive Metabolic Pane hailey 06-24-2021 Albumin [Mass/Vol] 3.1 g/dL Low 3.2-5.5 [facility] Comment on above: Performed By: #### H S TROP, PT, PTT, CMP, PHOS, MG, LIPID #### [address] Albumin/Globulin [Mass ratio] 1.2 {ratio} Normal [facility] Comment on above: Performed By: #### H S TROP, PT, PTT, CMP, PHOS, MG, LIPID #### [address] ALP [Catalytic activity/Vol] 57 U/L Normal 32-92 [facility] Comment on above: Performed By: #### H S TROP, PT, PTT, CMP, PHOS, MG, LIPID #### [address] ALT [Catalytic activity/Vol] 25 U/L Normal 10-60 [facility] Comment on above: Performed By: #### H S TROP, PT, PTT, CMP, PHOS, MG, LIPID #### [facility] [address] [place] [address] AST [Catalytic activity/Vol] 20 U/L Normal 10-42 [facility] Comment on above: Performed By: #### H S TROP, PT, PTT, CMP, PHOS, MG, LIPID #### [facility] [address] [place] [address] Bilirubin [Mass/Vol] 0.5 mg/dL Normal 0.3-1.2 [facility] Comment on above: Performed By: #### H S TROP, PT, PTT, CMP, PHOS, MG, LIPID #### [address] Calcium [Mass/Vol] 9.1 mg/dL Normal 8.2-10.2 [facility] Comment on above: Performed By: #### H S TROP, PT, PTT, CMP, PHOS, MG, LIPID #### [address] Chloride [Moles/Vol] 108 mmol/L Normal 95-114 [facility] Comment on above: Performed By: #### H S TROP, PT, PTT, CMP, PHOS, MG, LIPID #### [address] CO2 [Moles/Vol] 25.1 mmol/L Normal 22.0-30.0 [facility] Comment on above: Performed By: #### H S TROP, PT, PTT, CMP, PHOS, MG, LIPID #### [address] Creatinine [Mass/Vol] 1.64 mg/dL High 0.44-1.03 [facility] Comment on above: Performed By: #### H S TROP, PT, PTT, CMP, PHOS, MG, LIPID #### [address] Creatinine Clr Calc Pharmacy 33.62 Normal [facility] Comment on above: Performed By: #### H S TROP, PT, PTT, CMP, PHOS, MG, LIPID #### [facility] [address] Estimated GFR ( Cathryn 37 [facility] Comment on above: Result Comment: GFR estimated reference range: According to KDOQI guidelines, <60 ml/min/1.73m2 is sufficient to diagnose a patient with chronic kidney disease. Performed By: #### H S TROP, PT, PTT, CMP, PHOS, MG, LIPID #### [facility] [address] [place] [address] Estimated GFR (Non- Am 31 [facility] Comment on above: Performed By: #### H S TROP, PT, PTT, CMP, PHOS, MG, LIPID #### [address] Globulin (S) [Mass/Vol] 2.6 g/dL [facility] Comment on above: Performed By: #### H S TROP, PT, PTT, CMP, PHOS, MG, LIPID #### [address] Glucose [Mass/Vol] 65 mg/dL Low 70-100 [facility] Comment on above: Result Comment: [place] Glucose Reference Range is dependent on time and content of last meal. Glucose of more than 200 mg/dL in a nonstressed, ambulatory subject supports the diagnosis of Diabetes Mellitus. ADA recommended reference range Performed By: #### H S TROP, PT, PTT, CMP, PHOS, MG, LIPID #### [address] Potassium [Moles/Vol] 4.1 mmol/L Normal 3.5-5.1 [facility] Comment on above: Performed By: #### H S TROP, PT, PTT, CMP, PHOS, MG, LIPID #### [address] Protein [Mass/Vol] 5.7 g/dL Low 6.1-7.9 [facility] Comment on above: Performed By: #### H S TROP, PT, PTT, CMP, PHOS, MG, LIPID #### [address] [place] [address] [place] Sodium [Moles/Vol] 140 mmol/L Normal 136-146 [facility] Comment on above: Performed By: #### H S TROP, PT, PTT, CMP, PHOS, MG, LIPID #### [facility] [address] [place] [id number] [place] Urea nitrogen [Mass/Vol] 27 mg/dL High 9- [facility] Comment on above: Performed By: #### H S TROP, PT, PTT, CMP, PHOS, MG, LIPID #### [facility] [address] Creatinine and Glomerular fi ltration rate.predicted panel (S/P/Bld)Ordered By: Marlon Leon on 06-24-2021 Creatinine [Mass/Vol] 1.64 mg/dL 0.44-1.03 [facility] ECG 12 lead ECGon 06-24-2021 ECG 12 lead ECG [facility] Main [place] [address] [place] [address] Electrocardiograph Report Signed Patient: Elif Turner MR#: [id number] : 1945 Acct:[id number] Age/Sex: 75 / F ADM Date: 06/24/21 Loc: Room: [address] [place] [address] Type: DIS IN Attending Dr: Rusty Amor [...] By Wil Domínguez MD, FAC 06/25/21 1101 [facility] ECG 12 [place] [address] Electrocardiograph Report Signed Patient: Elif Turner MR#: [id number] : 1945 Acct:[id number] Age/Sex: 75 / F ADM Date: 06/24/21 Loc: 4P Room: [address] [place] [address] Type: DIS IN Attending Dr: Rusty Amor [...] change was found Confirmed by SANG BARRIOS [facility], [facility]IL ([id number]) on 06/24/2021 10:01:50 AM Referred By: Electronically Signed By:WIL DOMÍNGUEZ MD [facility] Transcribed By: MUS Signed By Wil Domínguez MD, [facility] 06/24/21 1001 [facility] ECH echo transthoracicon ECH echo transthoracic [facility] Main [place] [id number] Echocardiogram Signed Patient: Elif Turner MR#: [id number] : 1945 Acct:[id number] Age/Sex: 75 / F ADM Date: 06/24/21 Loc: 4 Room: [address] [place] [address] Type: DIS IN Attending Dr: Rusty Amor MD Ordering Provider: Marlon Leon DO, RES Date of Service: 06/24/2108/10/602 ECH/ECH echo transthoracic: NSTEMI Copies to: Marlon Leon DO, RES Wil Domínguez MD, [facility] A : 1945 Gender: Female (MM/DD/YYYY) Age: [...] Signed By: Wil Domínguez MD, FACC 06/24/21 1111 [facility] Estimated glomerular filtrat ion rate (GFR) non- AmericanOrdered By: Marlon Leon on 06-24-2021 GFR/1.73 sq M.predicted among non-blacks MDRD (S/P/Bld) [Vol rate/Area] 31 mL/Min [facility] Globulin Calc (S) [Mass/Vol] Ordered By: Marlon Leon on 06-24-2021 Globulin (S) [Mass/Vol] 2.6 g/dL [facility] Glucose Poct Glucometerson 0 06-24-2021 Glucose [Mass/Vol] 322 mg/dL Normal [facility] Comment on above: Result Comment: [facility] Glucose Reference Range is dependent on time and content of last meal. Glucose of more than 200 mg/dL in a nonstressed, ambulatory subject supports the diagnosis of Diabetes Mellitus. PERFORMED BY: [address] [place] [address] PATHOLOGIST PHYSICIAN OBSTETRICIAN NARGIS CLEMENS M.D. Performed By: #### G LULS #### Point of Care testing , Commemt1 Glu2: Cleaned Meter Normal [facility] Comment on above: Result Comment: PERF ORMED BY: [address] [place] [address] PATHOLOGIST PHYSICIAN OBSTETRICIAN NARGIS CLEMENS M.D. Performed By: #### G LULS #### Point of Care testing , Glucose [Mass/Vol] 87 mg/dL Normal [facility] Comment on above: Result Comment: [place] Glucose Reference Range is dependent on time and content of last meal. Glucose of more than 200 mg/dL in a nonstressed, ambulatory subject supports the diagnosis of Diabetes Mellitus. Performed By: #### G LULS #### Point of Care testing , Glucose [Mass/Vol] 139 mg/dL Normal [facility] Comment on above: Result Comment: [place] Glucose Reference Range is dependent on time and content of last meal. Glucose of more than 200 mg/dL in a nonstressed, ambulatory subject supports the diagnosis of Diabetes Mellitus. PERFORMED BY: [address] [place] [place] [address] PATHOLOGIST PHYSICIAN OBSTETRICIAN NARGIS CLEMENS M.D. Performed By: #### P TT #### [facility] [address] Glucose mean value [Mass/vol ume] in Blood Estimated from glycated hemoglobinOrdered By: Marlon Leon on 06-24-2021 Average glucose Estimated from glycated hemoglobin (Bld) [Mass/Vol] 160 mg/dL [facility] Hemoglobin A1c percentageOrd ered By: Marlon Leon on 06-24-2021 HbA1c (Bld) [Mass fraction] 7.2 % 4.3-5.6 [facility] Comment on above: Increased risk for d iabetes: 5.7 - 6.4 diabetes: >6.4 glycemic control for adults with diabetes: <7.0 Laboratory - Chemistry and C hemistry - challengeOrdered By: Marlon Leon on 06-24-2021 Magnesium [Mass/Vol] 2.4 mg/dL 1.6-2.6 [facility] Lipid Panelon 06-24-2021 Cholesterol [Mass/Vol] 128 mg/dL Low 140-200 [facility] Comment on above: Result Comment: Chol less than 200 mg/dl low risk Chol 201-239 mg/dl borderline risk Chol 240 mg/dl and greater high risk Performed By: #### H S TROP, PT, PTT, CMP, PHOS, MG, LIPID #### [facility] [address] [place] [address] [place] Cholesterol in HDL [Mass/Vol] 58 mg/dL Normal 35-85 [facility] Comment on above: Result Comment: HDL CHOL ATP-III CLASSIFICATION Cardiovascular Risk HDL > or equal to 60 mg/dL LOW HDL < 40 mg/dL HIGH Performed By: #### H S TROP, PT, PTT, CMP, PHOS, MG, LIPID #### [facility] [address] Cholesterol.total/Ch olesterol in HDL [Mass ratio] 2.2 {ratio} Normal <5.0 [facility] Comment on above: Result Comment: PERF ORMED BY: [place] [address] PATHOLOGIST PHYSICIAN OBSTETRICIAN JIANLAN SUN M.D. Performed By: #### H S TROP, PT, PTT, CMP, PHOS, MG, LIPID #### [facility] [address] LDL Cholesterol,Calculat ed 56 mg/dL Normal 0-100 [facility] Comment on above: Result Comment: LDL ATP III CLASSIFICATION LDL less than 100 mg/dL Optimal LDL 100-129 mg/dL Near or above optimal LDL 130-159 mg/dL Borderline high LDL 160-189 mg/dL High LDL greater than 189 mg/dL Very high Performed By: #### H S TROP, PT, PTT, CMP, PHOS, MG, LIPID #### [facility] [address] Triglyceride w/Reflex 69 mg/dL Normal 35-149 [facility] Comment on above: Result Comment: TRIG ATP III CLASSIFICATION TRIG less than 150 mg/dL Normal TRIG 150-199 mg/dL Borderline high TRIG 200-500 mg/dL High TRIG greater than 500 mg/dL Very high Standard traceable to the Center for Disease Conrtrol and Prevention (CDC) test method. Performed By: #### H S TROP, PT, PTT, CMP, PHOS, MG, LIPID #### [facility] [address] VLDL CHOLESTEROL 13 mg/dL Normal [facility] Comment on above: Performed By: #### H S TROP, PT, PTT, CMP, PHOS, MG, LIPID #### [facility] [address] Magnesiumon 06-24-2021 Magnesium [Mass/Vol] 2.4 mg/dL Normal 1.6-2.6 [facility] Comment on above: Performed By: #### H S TROP, PT, PTT, CMP, PHOS, MG, LIPID #### [facility] [address] No Panel InformationOrdered By: Rusty Amor on 06-24-2021 Bedside Glucose Comment Glu2: cleaned meter [facility] No Panel InformationOrdered By: Marlon Leon on 06-24-2021 Estimated GFR () 37 mL/Min [facility] Comment on above: GFR estimated refere nce range: According to KDOQI guidelines, <60 ml/min/1.73m2 is sufficient to diagnose a patient with chronic kidney disease. Pharmacy Creatinine Clearance (Chem 33.62 [facility] Partial Thromboplastin Timeo n 06-24-2021 aPTT Coag (Bld) [Time] 43.4 s High 25.1-36.5 [facility] Comment on above: Order Comment: draw both at 11:35 with per Shahnaz martin Result Comment: PERF ORMED BY: [place] [address] PATHOLOGIST PHYSICIAN OBSTETRICIAN NARGIS CLEMENS M.D. Performed By: #### P TT #### [facility] [address] [place], [place] [id number] [facility] aPTT Coag (Bld) [Time] 35.4 s Normal 25.1-36.5 [facility] Comment on above: Result Comment: PERF ORMED BY: [place] [address] PATHOLOGIST PHYSICIAN OBSTETRICIAN NARGIS CLEMENS M.D. Performed By: #### H S TROP, PT, PTT, CMP, PHOS, MG, LIPID #### [facility] [address] [place], [place] [id number] [facility] Phosphate [Mass/volume] in S sybil or PlasmaOrdered By: Marlon Leon on 06-24-2021 Phosphate [Mass/Vol] 3.5 mg/dL 2.5-4.6 [facility] Phosphoruson 06-24-2021 Phosphate [Mass/Vol] 3.5 mg/dL Normal 2.5-4.6 [facility] Comment on above: Performed By: #### H S TROP, PT, PTT, CMP, PHOS, MG, LIPID #### [facility] [address] [place], [place] [id number] [place] Protein [Mass/volume] in Ser um or PlasmaOrdered By: Marlon Leon on 06-24-2021 Protein [Mass/Vol] 5.7 g/dL 6.1-7.9 [facility] Prothrombin Time INRon 06-24 INR Coag (PPP) [Relative time] 1.0 {INR} Normal [facility] Comment on above: Result Comment: [...] PT, PTT, CMP, PHOS, MG, LIPID #### [facility] [address] PT Coag (PPP) [Time] 11.7 s Normal 9.0-12.9 [facility] Comment on above: Performed By: #### H S TROP, PT, PTT, CMP, PHOS, MG, LIPID #### [facility] [address] Serum or plasma alanine liu otransferase measurement without P-5'-P (enzymatic activiOrdered By: Marlon Leon on 06-24-2021 ALT No additional P-5'-P [Catalytic activity/Vol] 25 U/L 10-60 [facility] Serum or plasma albumin/glob ulin mass ratioOrdered By: Marlon Leon on 06-24-2021 Albumin/Globulin [Mass ratio] 1.2 {ratio} [facility] Serum or plasma alkaline carrie sphatase measurement (enzymatic activity/volume)Ordered By: Marlon Leon on 06-24-2021 ALP [Catalytic activity/Vol] 57 U/L 32-92 [facility] Serum or plasma aspartate am inotransferase measurement (enzymatic activity/volume)Ordered By: Marlon Leon on 06-24-2021 AST [Catalytic activity/Vol] 20 U/L 10-42 [facility] Serum or plasma calcium varsha urement (mass/volume)Ordered By: Marlon Leon on 06-24-2021 Calcium [Mass/Vol] 9.1 mg/dL 8.2-10.2 [facility] Serum or plasma chloride viktoriya surement (moles/volume)Ordered By: Marlon Leon on 06-24-2021 Chloride [Moles/Vol] 108 mmol/L 95-114 [facility] Serum or plasma glucose varsha urement (mass/volume)Ordered By: Marlon Leon on 06-24-2021 Glucose [Mass/Vol] 65 mg/dL 70-100 [facility] Comment on above: ADA recommended refe rence range Random Glucose Reference Range is dependent on time and content of last meal. Glucose of more than 200 mg/dL in a nonstressed, ambulatory subject supports the diagnosis of Diabetes Mellitus. Serum or plasma high density lipoprotein (HDL) cholesterol measurementOrdered By: Marlon Leon on 06-24-2021 Cholesterol in HDL [Mass/Vol] 58 mg/dL 35-85 [facility] Comment on above: HDL CHOL ATP-III CLA SSIFICATION Cardiovascular Risk HDL > or equal to 60 mg/dL LOW HDL < 40 mg/dL HIGH Serum or plasma potassium me asurement (moles/volume)Ordered By: Marlon Leon on 06-24-2021 Potassium [Moles/Vol] 4.1 mmol/L 3.5-5.1 [facility] Serum or plasma sodium measu rement (moles/volume)Ordered By: Marlon Leon on 06-24-2021 Sodium [Moles/Vol] 140 mmol/L 136-146 [facility] Serum or plasma total biliru bin measurement (mass/volume)Ordered By: Marlon Leon on 06-24-2021 Bilirubin [Mass/Vol] 0.5 mg/dL 0.3-1.2 [facility] Serum or plasma total carbon dioxide measurement (moles/volume)Ordered By: Marlon Leon on 06-24-2021 CO2 [Moles/Vol] 25.1 mmol/L 22.0-30.0 [facility] Serum or plasma total choles terol/high density lipoprotein (HDL) cholesterol mass ratOrdered By: Marlon Leon on 06-24-2021 Cholesterol.total/Ch olesterol in HDL [Mass ratio] 2.2 {ratio} [facility] Serum or plasma urea nitroge n measurement (mass/volume)Ordered By: Marlon Leon on 06-24-2021 Urea nitrogen [Mass/Vol] 27 mg/dL 9- [facility] Triglyceride [Mass/volume] i n Serum or PlasmaOrdered By: Marlon Leon on 06-24-2021 Triglyceride [Mass/Vol] 69 mg/dL 35-149 [facility] Comment on above: TRIG ATP III CLASSIF ICATION TRIG less than 150 mg/dL Normal TRIG 150-199 mg/dL Borderline high TRIG 200-500 mg/dL High TRIG greater than 500 mg/dL Very high Standard traceable to the Center for Disease Conrtrol and Prevention (CDC) test method. Troponin I High Sensitivityo n 06-24-2021 Troponin I High Sensitivity 879 pg/mL Off scale high 0-15 [facility] Comment on above: Order Comment: draw both at 11:35 with per Shahnaz martin Result Comment: Crit ical value result called at 1246 on 06/24/21 PERFORMED BY: [place] [address] PATHOLOGIST PHYSICIAN OBSTETRICIAN NARGIS CLEMENS M.D. Performed By: #### G LULS #### Point of Care testing , Troponin I High Sensitivity 1098 pg/mL Off scale high 0-15 [facility] Comment on above: Result Comment: Resu lts called at 0635 on 06/24/21 PERFORMED BY: [place] [address] PATHOLOGIST PHYSICIAN OBSTETRICIAN NARGIS CLEMENS M.D. Performed By: #### H S TROP, PT, PTT, CMP, PHOS, MG, LIPID #### [address] Auth for Release of Medical Recordson 03-01-2021 Auth for Release of Medical Records [id number]:127 Normal [facility] Reminderson 02-16-2021 Reminders - From: Elsa Erickson LPN To: GSN - Clinical; Sent: 02/16/2021 08:31:52 EST Show up: 01/10/2026 08:00:00 EST Subject: colonoscopy recall Due Date/Time: 02/09/2026 08:00:00 EST Reminder/Recall Patient is due for colonoscopy 02/09/2026 due to history of tubular adenoma. Normal [facility] Ambulatory Clinical Summaryo n 02-15-2021 Ambulatory Clinical Summary {[id number]}CD:[id number] Normal [facility] General Surgery Office/Clini c Noteon 02-15-2021 General Surgery Office/Clinic Note CD:[id number] ERrkHx1lr4nkDG27pu9iZjAfGh9 +FfczBT3LIUtZIWIu rL5lYCRJEpwZAgOaNB7zShCSMp9 CHPRoAFsJKEpxPX8iAUK3wkkzhL 3pPW2vJTWhtXJdXj0td6g5 UytyGe9nLd2QNk77bLGboZXyMRB SW1twkK7fDG2nbVYoN9IuXBTzLd 1EXXy3eVtcnJ7ialJ8Auh3 sLN3Jf90z9kwpaUmt2YwRoW1OHe oaQm1xMaeAUlrbJ1uHtYuPMBPiE 0gnFuxQL3hvL4bszSyuDdi biI+RohvWMJtCop5nEVoGB07T0O jiLklTxy8aNO8BYGbhHXsPVFoiY k6DLWKWEQINBUtkRUhmEke tBOkAISyskCeraN9GwmNJBAjDsY qWan0G5syKCJ+Lrcdc6F5Bdn3DF l3VSE2cEuvBGBgp169MAZh dDasbUikbUJyh31xJNUymFWgIjZ qv653CDHunnB6KIwaoCsxVef0yN JxsNLxu9scuDs2CfMnMLSq WhqEJSHtnIldq0QiDdsQTSbdl2w ohpXwhQdaWKC4j9DgFSeuIOBhKV X5MxUmGZ8+CgkJPGNvbCB2 EBpyG653OcAnsZMsn1dlhKx3IhF 9BDLqGp0UEIlyS58eI8XlsCQ+Cg z0zQUcRFc+CgkJPHRyPgoJ SCc3qIAib4Q2yRP1FcOlpqHkh5v 8DFvhQOG7RlN4PHT7aNWdjK9kcH bekrezvS7sVfW+CgkJCTxk tTJuN0udh6D4DoDxu7YgqXscqzF cDBDpPiGdx5vpCzfsMRMgrJ6vTU U5YgAuEDCxvOYnNHQyBX1a tmQdjRTfEHJtXeKzJ3Foo07zw4P uQXWEZ0qYLoHiLKL6IZ1uEqKmRF 0iXzljNGYzNmVlLWFlZGYt AKMvRH16URu4ZPJrEYMvQRKxVvY 8QeWsl8L0kAP2MfFrJOKfkuw0KI RweDsiPjxzcGFuIGNsYXNz SZGbHSLvJ8Pce53jfVKnsPM3Eb1 1j7BtzqAdkZohPX8qQm7rwH46IM mmhME0HBKteSP4XPIzuTFe CTWnf1QzpZvejkdbxA1oNLHukF9 lOyI+M1ufIMPfI13mtYshvV54ZX 4iuWXfAldkc9Vwcm8FIElR DEXkllZciDRguz0kQOWhfNIuz53 4NC01HnGcMFrqs936EX08aSjhYB 7cPRRNN7ZXUM6XVZCNQmTt SCflTOUbqeDvA7B2uIsdXRMDA6V 3JoS2VK2JClHuEARDX6CsPcJrLt 1XY1IFPPtVRrF4EfYoKGzp UBPfUNffMIR7TlcmJVE0MO60S0D hTIA4ZPPqYHKhBwHaQSv0OplsXu 7XOTyZZEMtznZaqLPete7v HPSfiSXyv126WN57lPBcsPFjRUM snL74PYKrDSYrxKR6Xf38DmZ6LX H6KG6fIOAkLWWuDQYyQvB9 In20WbXlLVEqPCPpIECmQzWro1M wt7JexkO5sEQfPACfgRilqhH6qN krIQp4VnkWVDf7P1Eeld3B FGbACD9ieSC+BlvUFWg6STf3HKV zGTSzVYZiOLCdY9Fky27jQJAbMU LyKJMvQIIlMMFdOGstm3Dw pRTvZTU4TVp4LFWvbsLgz7ZfGsi sWxFsQCnsPIH8pH2tO57dYC8mJZ 9MVvTcFBWbGnZzBwZpwLU3 Nv4kECPmJueyGt3ePYaaJZV8XeK pTGKuCs62XJyaIVStAHj2JfArGU L3rSarLNSpKHNuzK5jQrI0 xAt9Qb89o0GelhAygXJnux3yGGV uTXY3xN0eGMkthCszoTX+PHNwYW 5ym4X4wPL6FeUrscFip6Ys S3b6UbLdf1ywYyT1DPn3OFCrY48 nBDYam165ANGfLKVjpFneNClkLe cNFFGUiMDxMdpdb1Ijct10 W1KbHP7+QbpUMBt3ZFk9ROPnKMX zPSJkZGVtcmNvbnRlbnQiIGRkOm ZphcAydaW2lHPpWNCPTQCL RPOEP61XRWNuFSInScCtTeLdUF6 vSQF3cJX6NoB5IFXYKNFxZCo5BK NrHTI9Aa2USzIoWGESTNOZ NbieYLS3RdWbdEG9Hk55OrEvDuQ vSp7cZWL4TCPnXJIdENSuIY16Q0 E3Zhg8OYKwTTZoNxyFITd2 DFg3YXUlQQQiYXDwODMigkPalrI belSzsUZaSBXngmImw0ClWctgZz IiMTknwT9bbV8noSwwS4Z3 hWqqNHT4u9FagvmzfFIyOOBwVgO otrXizhS0tXViZOOWWADOARING6 9TXKGgKTZjKvZfzQs5nOau XXNiCHynGPFvWZY8PZBzXxkcPpX 2XC44WLF1YECcXnXgPXAkOWAmU1 UfKtGeFcS3jJxtjzdtPV2n VXbmMR5dE3SrJ0LdCR37NKSpd37 wJraGKVa7YOg3JXE0hCerQCUfUL DegL71LTDelDBnxX82NAHb MRDamgx5OHTkuQhaMg5nSVBhSsT zwUUlajfcKHTjXACeVBLfAaN8IH f6CUMhkUfgRpJbJOY3DnHh i4gkfrnomktwHWXaMZHvEWReMcG 2CNg4LMizBZJssZihAFepGpQhr8 74SUP4cUmoBxCwd5FfFXp3 UVOfxzCth2KyA9i8PbBjr9PtUQo 5UGVotFMhZAOwr1ZktUjjfbhvjm 0uPZpuNsfKPIl8ISb9Apup OY2cvMU1Vf32WBMjJWukWU13BUM eEZFmUzIsMEOuUk0yFLt6HVvfL5 IdHCUnRmnsWV8SMvlRSZtd aXY+GfSoKBazzZ6ouTMryVYeRLX sbxIkEb8imE09PMRiNMPuo4UpKZ cZSAjycRwuSD61waLjESQl RTClNDH8bkpjNKHzi9OxoYKxEGE vVKEdp1gvjn5fM01kfQO7jETwDK QnO6DcOYtdCpAjc2zugtPg lnUczkGecYIeXMTpfLluTUK9o45 kCGSkELVvpmWmsrPaecO5rIJxEM DgPK3agV4qyEBfIAboGacq ZPm3LfnPAZs7B9Guam2MSZxLSV4 kaXY+OgpYYZwdSDy2LezWELh3Q1 Tqqm4HDYdCGD9uxPB+CgoJ WMb5VKv4WWLaMZQpYKWuEHPdR6O um55kEGPqIIRkIBZhLYRcNKIwVI plj3CztJMxSOK7BIg3VNRf rpBcv0QeDoucLeMyLPthMWO0iJ5 zH28nHH9eAB9XXpMrXDUsWvDqDj YhzBT0Cp0wKJItPcEsUE20 HLbySUX4ONEoJYBgLr4zSsFnAFJ lMeD8CyTvUSZ3eRfkKWXwBVVglJ 6vNqJ0pZa4Jk12v6DwhySu kVUbkw0oSHMfSKF8kS5oZJyxvXq heSI+UHWhMG7fp2Q1cTK6GjSbsm Pmp2BzV9x0JfYij0ulEhS4 JPo0BRMfZ24gFJJrl228RYPnHTI mjPgrYRenEheui1Asqeusa4OgOC Bhx4RcqQBQnHxxRQAlUM4s dNIeGmytj3Bvul8LKybSHFqaeWY mP0ajv9A0TvJuWO4oN20ifNJveX JlCKQ4X91bU6CenH5sJTHD LbAlEVrzw952BS61pOasDQ1yXN6 EL8PPFRTySGIcIsLfGsPyXJ1wQG B9gJJ0EgAqReStCzM7LWR2 NWEaSJPIJb40CitLOLAXMoW8V7G 6W4O3BSMmnYW1Wn3dAXkxOOLqAA 4nPfceBLLmQGByZAN0Yg2q TdToRTG6FAjtWWSgVonTZCt6YNn 2IGNsYXNzPSJkZGVtcmNvbnRlbn FavDHnDkRfAVbeb991WN30 rMcxPD6zJJILR2AEPJ1MCNEIOuS eTIvktgAxuTbkIR0ePVm9ZnQ3UR H9EaDiRCP6LT56sKJ9mkFu q9xeuz4iFlKalER0Ii97BhAqBOF 3FG2aMlYaEYX9TTShZCXdJA26AI C0FjOpVJG6HJWcAddPSYo7 HGz7JXJkNVSuXZPmMPLlmAAiaeZ liLEcERN2MN39zHL0gTX9uVU3iO N4DzSxx3BrnGTcoVRvqQX9 Ja33GZl4TOUfDJ8fBUDqAXLoCQJ pYkibAL2iYUZ9GzPmIpQxORPrGy rOMSn7OEk8JAIwDJDnRUPj VYOkATK4YNd2ACBeccCtn4JdZzi oJoLoFQlgvX5iiY6flShuG1I7oC mmNQS7y4BqqwvbzWIrSQhs EKFxNeCgWpSzNlSkESLpPr19RDO jDBAoW4WwVMmkCJLsLSWjSKZ3Gr 1uPEqpZKjzxw5xCOPZVW9o z3nagc2uN94nrDR1qYUlCMlma2H omTNtZxyddGBoNPMmLS6gVTRhxA 5aEFFqbWnzOGH7n339GRhf RobnqD6mH7EcmwIhM5AnkKXbeOz zLCBsaWtlbHkgZnJvbSBiaWxlIH JoKwx1fVsbmgLsHWZkvtFs Fc5wMZrcgIvxp2KpBaBqpQBnuSG 9rVE5bWWbQCUiEN9lmMFdlH7kDX AuJKMnkG6rJIMiIJP1GYja cW1ziUKejDlyJYLhnDWsnLclPsY aBZE1keDzxoKkS63tr85nw2a4pS BnvOCztK7vA3tzYKdhiRF4 sOFlwKLyp6FcjRBtxN4wZIMtzcB vSYQdKFMbQMoiVWFstsC3nSA4IS k5EX0cx7TmOJ1jmYYzLIP7 d2BmTU73V9Xmqs5SHJiCCQ6heOG +QbxLGVdaHNa4DjqYHWi6O1Sffv 7UFUpAQH4hlLR+CgoJCQk8 NSo4AJCmOSWrYLSpNEFrN7Qkt48 gZGRyZWZyZXNoYWJsZSBkZGluc2 MjhPChOKT2MYl2JTYwyuCv p6SxSplsBlVjQLscBJT2oR9oF48 xDQ8nPC4BBkDyKWVtGImeLlDowZ K2Mu09XhPmPZR1UX4vG5U3 L (more content not included)... [facility] Comment on above: Result Comment: Elec tronically Signed By: ANGEL BARRIOS, Neel Gamboa\Date and Time Signed: 02/15/21 15:08 EST Pathology Noteon 02-14-2021 Pathology Note [id number]#1.00CD:127 [facility] Outside Colonoscopyon 2020 Outside Colonoscopy [id number]#1.00CD:127 [facility] Lab Reportson 02-07-2021 Lab Reports [id number]#1.00CD:127 [facility] Pre-Certification Formon Pre-Certification Form [id number]#1.00CD:127 [facility] Consent for Procedure/Surger yon 01-19-2021 Consent for Procedure/Surgery [id number]#1.00CD:127 Normal [facility] [facility] January 19, 2021 AMADOR ARANGOCrystal, [address] [place] [address] Re: ELIF TURNER Date of : 1945 Thank you for your referral of Elif Turner who was seen on consultation on 01/18/2021 for epigastric pain with nausea. An EGD and colonoscopy are planned for further evaluation. I have enclosed my consultation note for your review. I will be happy to follow Leif. Sincerely, Neel Razo MD General Surgery [facility] Ambulatory Clinical Summaryo n 01-18-2021 Ambulatory Clinical Summary {[id number]}CD:61 4368 [facility] Physician Referralon 021 Physician Referral [id number]#1.00CD:127 [facility] Consultation Noteon 12-07-19 21 Consultation Note [id number]#1.00CD:127 [facility] CNOVon 09-19-2017 CNOV Office Visit (JAVISJASEN) -------YUEKRUNALELIF ([id number]) 1945 [facility]/19/17 11:30 AM CHIDI MELLO During your visit today, we recorded the following information about you: Pulse Respiration Blood pressure Weight 52/minute 16/minute 115/46 93.4 kg Height 1.626 Margarita Mello MD 09/19/2017 11:59 AM [facility] Department of Cardiovascular MedicineOUTPATIENT VISIT DATE September 19, 2017OUTPATIENT VISIT TYPENEWPRIMARY CARE PHYSICIAN:Amador Abdalla MD ([facility])[address] [place] [address]Nswjn: [phone]: [phone] PHYSICIANChkiah Wilkins MD[address] [place] [address]DYPPF COMPLAINT:No chief complaint on file.HISTORY OF PRESENT [...] s/p PCI. 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] Other Visit Diagnoses:Diabetic peripheral neuropathy associated with type 2 diabetes mellitus ([facility]) [E11.42] PAD (peripheral artery disease) ([facility]) [I73.9]Prescriptions as of 09/19/2017 Sig: [...] to improve.Follow-up and Disposition History RecordedEncounter Number: [id number] Status:Closed by CHIDI MELLO MD on 09/19/17 Normal [facility] PROGRESSon 09-19-2017 Protein mass conc HNO ID: [id number] thor: Chidi Feldman: (none)Author Type: PhysicianType: Progress NotesFiled: 09/19/2017 11:59 AMNote Text:Heart [facility] Vascular InstituteRoblovelace [facility], [place] [facility] Department of Cardiovascular MedicineOUTPATIENT VISIT DATE September 19, 2017OUTPATIENT VISIT TYPENEWPRIMARY CARE PHYSICIAN:Amador Abdalla MD ([facility])[address] [place], [place] [address]Caziu: [phone]: [phone] PHYSICIANChkiah Wilkins MD[address] [place] [address]GDYNL COMPLAINT:No chief complaint on file.HISTORY OF PRESENT ILLNESS:Elif Turner was referred for consultation by Dr. Zach Wilkins.Opinions and recommendations in this consultation will be transmitted backto the referring physician by [facility] notes or via mail.Ms. Turner is a 72 year old female who is seen today for evaluation fordiscomfort in the arch of her feet and mild discomfort in the legs whenwalking.Her walking is limited by osteoarthritis of the knees, hips and lowerback. She uses a walker.She has difficulty in maintaining her glucose levels.Hx of CAD s/p PCI. On ASA, statin.HUMBERTO/PVR performed at [facility], right 0.94, left 1.14.PAST MEDICAL HISTORYDiagnosis [...] Wilkins of podiatry.Chidi Mello MD Normal [facility] Vital Signs Date Time Vital Sign Value Performing Clinician Facility 02-29-2024 11:47-0500 Body height 157.5 cm Amador Abdalla MD Work Phone: [facility] 02-29-2024 11:47-0500 Body mass index (BMI) [Ratio] 33.47 kg/m2 Amador Abdalla MD Work Phone: [facility] 02-29-2024 11:47-0500 Body temperature 97.11 [degF] Amador Abdalla MD Work Phone: [facility] 02-29-2024 11:47-0500 Body weight 83.01 kg Amador Abdalla MD Work Phone: [facility] 02-29-2024 11:47-0500 Diastolic blood pressure 80 mm[Hg] Amador Abdalla MD Work Phone: [facility] 02-29-2024 11:47-0500 Heart rate 77 /min Amador Abdalla MD Work Phone: [facility] 02-29-2024 11:47-0500 Respiratory rate 22 /min Amador Abdalla MD Work Phone: [facility] 02-29-2024 11:47-0500 SaO2% (BldA) [Mass fraction] 97 % Amador Abdalla MD Work Phone: [facility] 02-29-2024 11:47-0500 Systolic blood pressure 164 mm[Hg] Amador Abdalla MD Work Phone: [facility] 02-07-2024 10:05-0500 Body height 157.5 cm Turner Wilkins DPM Work Phone: [facility] 02-07-2024 10:05-0500 Body mass index (BMI) [Ratio] 34.57 kg/m2 Turner Wilkins DPM Work Phone: [facility] 02-07-2024 10:05-0500 Body weight 85.73 kg Turner Wilkins DPM Work Phone: [facility] 02-07-2024 10:05-0500 Respiratory rate 18 /min Turner Wilkins DPM Work Phone: [facility] 11-12-2023 14:28-0400 Body height 157.5 cm Amador Abdalla MD Work Phone: [facility] 11-12-2023 14:28-0400 Body mass index (BMI) [Ratio] 34.57 kg/m2 Amador Abdalla MD Work Phone: [facility] 11-12-2023 14:28-0400 Body temperature 97.11 [degF] Amador Abdalla MD Work Phone: [facility] 11-12-2023 14:28-0400 Body weight 85.73 kg Amador Abdalla MD Work Phone: [facility] 11-12-2023 14:28-0400 Diastolic blood pressure 60 mm[Hg] Amador Abdalla MD Work Phone: [facility] 11-12-2023 14:28-0400 Heart rate 90 /min Amador Abdalla MD Work Phone: [facility] 11-12-2023 14:28-0400 Respiratory rate 20 /min Amador Abdalla MD Work Phone: [facility] 11-12-2023 14:28-0400 SaO2% (BldA) [Mass fraction] 95 % Amador Abdalla MD Work Phone: [facility] 11-12-2023 14:28-0400 Systolic blood pressure 158 mm[Hg] Amador Abdalla MD Work Phone: [facility] 06-25-2021 12:15-0400 Body temperature 98.1 [degF] MD Amador Abdalla Work Phone: [facility] 06-25-2021 12:15-0400 Diastolic blood pressure 72 mm[Hg] MD Amador Abdalla Work Phone: [facility] 06-25-2021 12:15-0400 Heart rate 64 /min MD Amador Abdalla Work Phone: [facility] 06-25-2021 12:15-0400 Respiratory rate 18 /min MD Amador Abdalla Work Phone: [facility] 06-25-2021 12:15-0400 SaO2% (BldA) [Mass fraction] 96 % MD Amador Abdalla Work Phone: [facility] 06-25-2021 12:15-0400 Systolic blood pressure 127 mm[Hg] MD Amador Abdalla Work Phone: [facility] 06-25-2021 08:00-0400 Inhaled oxygen flow rate 3 L/min MD Amador Abdalla Work Phone: [facility] 06-25-2021 06:00-0400 Body weight 93.5 kg MD Amador Abdalla Work Phone: [facility] 06-24-2021 04:05-0400 Body height 162.56 cm MD Amador Abdalla Work Phone: [facility] 06-24-2021 04:05-0400 Body mass index (BMI) [Ratio] 34.9 kg/m2 MD Amador Abdalla Work Phone: [facility] 06-23-2021 19:30-0400 Diastolic blood pressure 61 mm[Hg] [facility] 06-23-2021 19:30-0400 Heart rate 80 /min [facility] 06-23-2021 19:30-0400 Respiratory rate 16 /min [facility] 06-23-2021 19:30-0400 SaO2% (BldA) [Mass fraction] 98 % [facility] 06-23-2021 19:30-0400 Systolic blood pressure 132 mm[Hg] [facility] Encounters Encounter Date Encounter Type Care Provider Facility Start: 04-02-2024 End: 04-04-2024 Clinisync Result Encounter Generic External Data Provider [facility] External [facility] Unsolicited Start: 04-02-2024 End: 04-04-2024 Clinisync Result Encounter Generic External Data Provider [facility] External Department Unsolicited Start: 03-25-2024 End: 03-26-2024 Refill Amador Abdalla MD Work Phone: [facility] Comment on above: Primary insomnia Start: 03-19-2024 End: 03-19-2024 External Result Encounter Amador Abdalla MD Work Phone: [facility] Unsolicited Start: 03-19-2024 End: 03-19-2024 External Result Encounter Amador Abdalla MD Work Phone: [facility] External Department Unsolicited Start: 03-19-2024 End: 03-19-2024 ambulatory AMADOR ABDALLA [facility] Start: 03-05-2024 End: 03-05-2024 Clinisync Result Encounter [...] 25 minutes Amador Abdalla MD Work Phone: [facility] Comment on above: Left elbow pain (Krystle bia Dx); Type 2 diabetes mellitus with hyperglycemia, without long-term current use of insulin ([facility]/HCC); Benign essential hypertension ([facility]); Chronic diastolic heart failure ([facility]); Encounter for long-term (current) use of medications; Primary osteoarthritis of both knees; Stage 3b chronic kidney disease (CKD) (CMS/HCC); Dyslipidemia (CMS/[facility]); Class 1 obesity due to excess calories with serious comorbidity and body mass index (BMI) of 33.0 to 33.9 in adult; Type 2 diabetes mellitus with diabetic chronic kidney disease ([facility]/HCC) Start: 02-25-2024 End: 02-25-2024 Refill Amador Abdalla MD Work Phone: [facility] Comment on above: Primary osteoarthrit is [...] diabetes makayla itus without complication, unspecified whether watermaster insulin use (CMS/[facility]) (Primary Dx); Pain due to onychomycosis of toenails of both feet; Venous insufficiency Start: 02-07-2024 End: 02-07-2024 ambulatory TURNER WILKINS Not Available Start: 01-23-2024 End: 01-23-2024 Refill Amador Abdalla MD Work Phone: [facility] Comment on above: Primary osteoarthrit is of both knees Start: 01-22-2024 End: 01-22-2024 Refill Amador Abdalla MD Work Phone: [facility] Comment on above: Primary insomnia Start: 11-18-2023 End: 11-20-2023 Clinisync Result Encounter Generic External Data Provider [facility] External Department Unsolicited Start: 11-18-2023 End: 11-20-2023 Clinisync Result Encounter Generic External Data Provider [facility] External Department Unsolicited Start: 11-12-2023 End: 11-12-2023 Office outpatient visit 25 minutes Amador Abdalla MD Work Phone: [facility] Comment on above: Type 2 diabetes makayla itus with hyperglycemia, without long-term current use of insulin (CMS/[facility]) (Primary Dx); Benign essential hypertension (CMS/HCC); Chronic diastolic heart failure (CMS/HCC); Major depressive disorder, recurrent episode, mild (HCC) (CMS/HCC); Generalized anxiety disorder (CMS/HCC); Fibromyalgia; Gastroesophageal reflux disease without esophagitis; Primary insomnia; Primary osteoarthritis of both knees; Stage 3b chronic kidney disease (CKD) (CMS/HCC); Dyslipidemia (CMS/HCC); Encounter for long-term (current) use of medications; Obesity (BMI 30-39.9); Acute UTI; Skin candidiasis; CAD in [place] artery (CMS/HCC); Type 2 diabetes mellitus with diabetic chronic kidney disease (HCC) (CMS/HCC) Start: 11-12-2023 End: 11-12-2023 ambulatory AMADOR ABDALLA Not Available Start: 11-12-2023 End: 11-12-2023 Bamboo flowsheet Amador Abdalla MD Work Phone: [facility] Start: 11-12-2023 End: 11-12-2023 Bamboo flowsheet Amador Abdalla MD Work Phone: [facility] Start: 08-20-2023 End: 08-20-2023 [facility] Start: 04-26-2023 End: 04-26-2023 ambulatory TURNER WILKINS Not Available Start: 03-13-2023 End: 03-13-2023 ambulatory AMADOR ABDALLA Not Available Start: 01-31-2023 End: 01-31-[address] [facility] Start: 10-12-2022 Rx Renewal Zafar mcfadden DO Work Phone: [facility] 250 DO Work Phone: Start: 08-29-2022 End: 08-29-2022 [facility] Start: 07-03-2022 End: 07-04-[address] AMADOR ABDALLA Facility:[facility]1 Start: 05-26-2022 End: 05-26-[address] AMADOR ABDALLA Facility:[facility] Start: 05-14-2022 End: 05-16-[address] AMADOR ABDALLA Facility:[facility]1 Start: 05-04-2022 End: 05-05-[address] AMADOR ABDALLA Facility:[facility]1 Start: 12-01-2021 End: 12-02-[address] AMADOR ABDALLA Facility:[facility]1 Start: 10-20-2021 Rx Renewal [facility]add[facility] Work Phone: Start: 09-09-2021 End: 09-10-[address] AMADOR ABDALLA Facility:[facility]1 Start: 08-31-2021 End: 08-31-[address] AMADOR ABDALLA Facility:[facility] Start: 08-27-2021 End: 08-27-2021 ambulatory TRENTON COLLINS Facility:[facility]1 Start: 08-23-[address] CAROLINA LUCIO Fac ility:[facility]1 Start: 08-16-2021 End: 08-16-[address] BERNADETTE ANGELES . Facility:[facility]1 Start: 08-01-2021 End: 08-02-2021 ambulatory ELY MENG Facility:[facility]1 Start: 07-27-2021 End: 07-28-2021 ambulatory ELY YUSRA Facility:[facility]1 Start: 07-15-2021 End: 07-17-[address] AMADOR ABDALLA Facility:[facility]1 Start: 06-25-2021 End: 07-29-2021 ambulatory [facility] Start: 06-24-2021 End: 06-25-2021 Evaluation and management of inpatient Amador Abdalla Facility:[facility] Start: 06-24-2021 End: 06-25-2021 Evaluation and management of inpatient MD Amador Abdalla Work Phone: [facility] Start: 06-23-2021 End: 06-23-2021 ambulatory [facility] T[facility], Treat and Transport Start: 06-23-2021 End: 06-23-2021 Emergency department patient visit [facility] Triage, Treat and Transport Comment on above: Arrived Start: 11-21-2018 End: 11-24-2018 Patient encounter procedure KELLI HANKINS Facility:[facility] Start: 09-19-2017 End: 09-19-2017 Patient encounter CHIDI MELLO [facility] Procedures Date Procedure Procedure Detail Performing Clinician Start: 04-02-2024 Bacteria identified in Urine by Culture Generic External Data Provider Start: 03-19-2024 Basic metabolic pane l calcium total Amador Abdalla MD Work Phone: Start: 03-05-2024 ALL CBC WITH AUTO DIFF Amador Abdalla MD Work Phone: Start: 11-18-2023 Bacteria identified in Urine by Culture Generic External Data Provider Start: 06-24-2021 CL Iliac/Fem w/LHC MD Karin Abdalla Work Phone: Start: 06-24-2021 CL PCI DIRECTOR OF SOFTWARE ENGINEERING 1st Vesse l RCA BAMBI MD Amador [...] screening for protein Diabetes: Urine Protein Screening [facility] Start: 03-05-2025 Urine screening for protein Diabetes: Urine Protein Screening [facility] Start: 09-16-2024 Hemoglobin A1c measurement Diabetes: Hemoglobin A1C [facility] Start: 05-27-2024 End: 05-27-2024 Patient encounter procedure 05/27/2024 11:00 AM EDT Office Visit [facility] [address] [place] [id number] Amador Abdalla MD [address] [place] [address] [facility] Start: 04-24-2024 End: 04-24-2024 Patient encounter procedure 04/24/2024 10:00 AM EST Office Visit [facility] [address] [facility] [address] [place] [id number] Turner Wilkins, DPM [address] [facility] [address] [place] [address] [facility] Start: 04-11-2024 End: 04-11-2024 Patient encounter procedure 04/11/2024 11:00 AM EST Office Visit [facility] [address] [place] [phone] Boyd Mario, PA [address] [facility] [address] [place] [address] [facility] Start: 04-07-2024 End: 04-07-2024 Patient encounter procedure 04/07/2024 2:30 PM EST Office Visit [facility] [address] [place] [address] Amador Abdalla MD [address] [place] [address] [facility] Start: 03-13-2024 End: 03-13-2024 Patient encounter procedure 03/13/2024 1:30 PM EST Office Visit [facility] [address] [facility] [id number] Jaun Alexis, ABHILASH [address] [place] [address] [facility] Start: 02-29-2024 End: 02-28-2025 Basic metabolic 1998 panel - Serum or Plasma Basic metabolic panel Lab Routine Stage 3b chronic kidney disease (CKD) ([facility]) Expected: 02/29/2024 (Approximate), Expires: 02/28/2025 [facility] Comment on above: Expected: 02/29/2024 (Approximate), Expires: 02/28/2025 Start: 02-29-2024 End: 02-28-2025 CBC W Auto Differential panel - Blood CBC and differential Lab Routine Encounter for long-term (current) use of medications Expected: 02/29/2024 (Approximate), Expires: 02/28/2025 [facility] Comment on above: Expected: 02/29/2024 (Approximate), Expires: 02/28/2025 Start: 02-29-2024 End: 02-28-2025 Hemoglobin A1c/Hemoglobin.total in Blood Hemoglobin A1c Lab Routine Type 2 diabetes mellitus with hyperglycemia, without long-term current use of insulin ([facility]) Expected: 02/29/2024 (Approximate), Expires: 02/28/2025 [facility] Comment on above: Expected: 02/29/2024 (Approximate), Expires: 02/28/2025 Start: 02-29-2024 End: 02-28-2025 Hepatic function 2000 panel - Serum or Plasma Hepatic function panel Lab Routine Encounter for long-term (current) use of medications Expected: 02/29/2024 (Approximate), Expires: 02/28/2025 [facility] Comment on above: Expected: 02/29/2024 (Approximate), Expires: 02/28/2025 Start: 02-29-2024 End: 02-28-2025 Lipid 1996 panel - Serum or Plasma Lipid panel Lab Routine Dyslipidemia ([facility]) Expected: 02/29/2024 (Approximate), Expires: 02/28/2025 [facility] Comment on above: Expected: 02/29/2024 (Approximate), Expires: 02/28/2025 Start: 02-29-2024 End: 02-28-2025 Microalbumin/Creatinine panel in random Urine Microalbumin / creatinine, urine ratio Lab Routine Type 2 diabetes mellitus with hyperglycemia, without long-term current use of insulin ([facility]) Expected: 02/29/2024 (Approximate), Expires: 02/28/2025 [facility] Work Phone: Comment on above: Expected: 02/29/2024 (Approximate), Expires: 02/28/2025 Start: 02-29-2024 End: 02-28-2025 Thyrotropin [Units/volume] in Serum or Plasma TSH Lab Routine Class 1 obesity due to excess calories with serious comorbidity and body mass index (BMI) of 33.0 to 33.9 in adult Expected: 02/29/2024 (Approximate), Expires: 02/28/2025 [facility] Comment on above: Expected: 02/29/2024 (Approximate), Expires: 02/28/2025 Start: 02-29-2024 End: 02-28-2025 XR Knee - left 1 or 2 Views XR knee 1 or 2 views left Imaging Routine Primary osteoarthritis of both knees Expected: 02/29/2024, Expires: 02/28/2025 [facility] Comment on above: Expected: 02/29/2024 , Expires: 02/28/2025 Start: 02-29-2024 End: 02-28-2025 XR Knee - right 1 or 2 Views XR knee 1 or 2 views right Imaging Routine Primary osteoarthritis of both knees Expected: 02/29/2024, Expires: 02/28/2025 [facility] Comment on above: Expected: 02/29/2024 , Expires: 02/28/2025 Start: 02-29-2024 End: 02-29-2024 Patient encounter procedure 02/29/2024 11:30 AM EST Office Visit [facility] [address] [place] [address] Amador Abdalla MD [address] [place] [phone] [facility] Start: 02-07-2024 End: 02-07-2024 Patient encounter procedure [facility] Comment on above: Type 2 diabetes makayla itus without complication, unspecified whether prison insulin use ([facility]) (Primary Dx); Pain due to onychomycosis of toenails of both feet; Venous insufficiency Start: 02-02-2024 Hemoglobin A1c measurement Diabetes: Hemoglobin A1C [facility] Start: 01-23-2024 End: 01-23-2024 Patient encounter procedure 01/23/2024 10:00 AM EST Office Visit [facility] [address] [place] [address] Amador Abdalla MD [address] [place] [phone] [facility] Start: 11-12-2023 End: 11-12-2023 Patient encounter procedure 11/12/2023 2:15 PM EDT Office Visit [facility] [address] [place] [address] Amador Abdalla MD [address] [place] [phone] Arrived [facility] Comment on above: Arrived Start: 11-12-2023 End: 11-11-2024 Albumin, urine, random Albumin, urine, random Lab Routine Type 2 diabetes mellitus with hyperglycemia, without long-term current use of insulin ([facility]) Expected: 11/12/2023 (Approximate), Expires: 11/11/2024 [facility] Work Phone: Comment on above: Expected: 11/12/2023 (Approximate), Expires: 11/11/2024 Start: 11-12-2023 End: 11-11-2024 Basic metabolic 1998 panel - Serum or Plasma Basic metabolic panel Lab Routine Stage 3b chronic kidney disease (CKD) ([facility]/HCC) Expected: 11/12/2023 (Approximate), Expires: 11/11/2024 [facility] Comment on above: Expected: 11/12/2023 (Approximate), Expires: 11/11/2024 Start: 11-12-2023 End: 11-11-2024 CBC W Auto Differential panel - Blood CBC and differential Lab Routine Encounter for long-term (current) use of medications Expected: 11/12/2023 (Approximate), Expires: 11/11/2024 [facility] Comment on above: Expected: 11/12/2023 (Approximate), Expires: 11/11/2024 Start: 11-12-2023 End: 11-11-2024 Hemoglobin A1c/Hemoglobin.total in Blood Hemoglobin A1c Lab Routine Type 2 diabetes mellitus with hyperglycemia, without long-term current use of insulin ([facility]) Expected: 11/12/2023 (Approximate), Expires: 11/11/2024 [facility] Comment on above: Expected: 11/12/2023 (Approximate), Expires: 11/11/2024 Start: 11-12-2023 End: 11-11-2024 Hepatic function 2000 panel - Serum or Plasma Hepatic function panel Lab Routine Encounter for long-term (current) use of medications Expected: 11/12/2023 (Approximate), Expires: 11/11/2024 [facility] Comment on above: Expected: 11/12/2023 (Approximate), Expires: 11/11/2024 Start: 11-12-2023 End: 11-11-2024 Lipid 1996 panel - Serum or Plasma Lipid panel Lab Routine Dyslipidemia ([facility]) Expected: 11/12/2023 (Approximate), Expires: 11/11/2024 [facility] Comment on above: Expected: 11/12/2023 (Approximate), Expires: 11/11/2024 Start: 11-12-2023 End: 11-11-2024 Thyrotropin [Units/volume] in Serum or Plasma TSH Lab Routine Obesity (BMI 30-39.9) Expected: 11/12/2023 (Approximate), Expires: 11/11/2024 [facility] Comment on above: Expected: 11/12/2023 (Approximate), Expires: 11/11/2024 Start: 10-21-2023 Influenza vaccination Influenza Vacc ine (#1) [facility] Start: 09-06-2023 Urine screening for protein Diabetes: Urine Protein Screening [facility] Start: 05-26-2023 Urine screening for protein Diabetes: Urine Protein Screening [facility] Start: 06-24-2021 Plain chest X-ray XR chest 1V [facility] Start: 11-02-2018 Pneumococcal Vaccine : 65+ Years (2 of 2 - PCV) Pneumococcal Vaccine: 65+ Years (2 of 2 - PCV) [facility] Start: 07-10-2012 Pneumococcal vaccination Pneumococcal [...] Hepatitis C screening Hepatitis C An tibody [facility] Start: 07-10-1965 Tetanus + diphtheria + acellular pertussis vaccine (product) Tdap Booster [facility] Start: 07-10-1957 Glaucoma screening Diabetes: R etinopathy Screening [facility] Start: 07-10-1952 COVID-19 Vaccine (1) COVID-19 Vaccin e (1) [facility] Start: 1947 Hemoglobin A1c measurement Diabetes: Hemoglobin A1C [facility] Start: 1945 Medicare Annual Wellness (AWV) Medicare Annual Wellness (AWV) [facility] Start: 1945 Screening for malign ant neoplasm of colon [facility] Bacteria identified in Urine by Culture URINE CULTURE, ROUTINE Lab Routine 04/02/2024 3:22 PM EST [facility] Basic metabolic 1998 panel - Serum or Plasma Basic metabolic panel Lab Routine 03/19/2024 9:14 AM EST [facility] Work Phone: Patient Education Coronary Angio plasty (DC) Liraglutide Angina (DC) Drug Eluting Stents [facility] Work Phone: Patient referral [facility] Work Phone: Immunizations Immunization Date Immunization Notes Care Provider Fa cility 12-20-2021 influenza virus vacc ine, unspecified formulation Amador Abdalla MD Work Phone: [facility] Payers Date Payer Category Payer Medicare [id number] 2021 Self-pay [id number] 2021 Medicare [employer] MEDICARE ADVANTAGE [facility] MEDICARE ADVANTAGE [id number] 2021-Present [address] [place] [address] [id number]. [id number] 2021 Medicare (Managed Care) [facility] ADVANTAGE [id number]. [id number] 2019 Medicare [id number] 2018 Medicaid [id number]. 1.13.693.2. 7.3.916326.315 1959 Medicaid [id number] 1959 Medicare [id number] 1959 Unknown [id number] 1947 Unknown [id number] 2.16.840.1.929570.3.579.2. 647 1947 Unknown [id number] 2.16.840.1.865358.3.579.2. 732 1947 Unknown [id number] 2.16.840.1.870948.3.579.2. 593 1947 Unknown [id number] 2.16.840.1.235493.3.579.2. 593 1947 Unknown [id number] 2.16.840.1.762665.3.579.2. 593 1947 Unknown [id number] 2.16.840.1.320907.3.579.2. 593 1947 Unknown [id number] 2.16.840.1.889707.3.579.2. 593 1947 Unknown [id number] 2.16.840.1.214970.3.579.2. 593 1947 Unknown [id number] 2.16.840.1.106118.3.579.2. 593 1947 Unknown [id number] 2.16.840.1.490059.3.579.2. 593 1947 Unknown [id number] 2.16.840.1.856014.3.579.2. 593 1947 Unknown [id number] 2.16.840.1.559406.3.579.2. 593 1947 Unknown [id number] 2.16.840.1.982247.3.579.2. 593 1947 Unknown [id number] 2.16.840.1.530680.3.579.2. 593 1947 Unknown [id number] 2.16.840.1.431108.3.579.2. 593 1947 Unknown [id number] 2.16.840.1.744712.3.579.2. 1259 1947 Unknown [id number] 2.16.840.1.717797.3.579.2. 1259 1947 Unknown [id number] 2.16.840.1.735693.3.579.2. 1259 1947 Unknown [id number] 2.16.840.1.080731.3.579.2. 1258 1947 Unknown [id number] 2.16.840.1.436269.3.579.2. 1259 1947 Unknown [id number] 2.16.840.1.707741.3.579.2. 1286 Medicare [id number] Unknown Unknown [id number] 2.16.840.1.194423.3.579.2. 531 Social History Date Type Detail Facility Tobacco smoking stat us [facility] Tobacco smoking consumption unknown [facility] Work Phone: Start: 1945 Sex Assigned At Not on file [facility] Start: 06-24-2021 End: 10-19-2022 Tobacco smoking status [facility] Never smoked tobacco (finding) [facility] Start: 1945 Sex Assigned At Female F [facility] Start: 10-19-2022 Tobacco use and exposure Smokeless [...] to any clubs or organizations such as mosque groups, unions, fraternal or athletic groups, or [...] by Other route Daily Use as instructed [id number] Start: 03-20-2024 1 each Daily [id number] Start: 03-20-2024 Goals Date Patient Goal Desired Activity /State Functional Status Date Assessment Result Facility 06-25-2021 Functional status Patient at Baseline [facility] Work Phone: Mental Status Date Assessment Result Facility 06-25-2021 Cognitive function Cognitive Sta tus Patient is Progressing Toward Baseline [facility] Work Phone: Clinical Notes 01-18-2021 to 03-26-2024 Telephone Encounter - Amador Abdalla MD - 03/26/2024 3:01 PM ESTTelephone Encounter - Amador Abdalla MD - 03/26/2024 3:01 PM Rafaela Abdalla MD - 02/29/2024 2:13 PM EST Note Date & Type Note Facility 03-26-2024 Telephone encounter Note [facility] 03-26-2024 Miscellaneous Notes documented in this encounter [facility] 02-29-2024 History of Presen t illness [...] 78 y.o. female who presents for Follow-up ([facility] er f/up 02/23/24) and Knee Pain. [...] Problem List Items Addressed This Visit Dyslipidemia ([facility]) Relevant Orders Lipid panel Chronic diastolic heart failure ([facility]) Edema stable and continue medication. Elevate legs PRN. Follow up with cardiology. Primary osteoarthritis of both knees Pain worse and check x-ray. Refer to ortho and use norco PRN. Relevant Orders XR knee 1 or 2 views right XR knee 1 or 2 views left Ambulatory referral to Orthopaedic Surgery Stage 3b chronic kidney disease (CKD) ([facility]) Check labs Relevant Orders Basic metabolic panel Type 2 diabetes mellitus with hyperglycemia, without long-term current use of insulin ([facility]) Not checking BS and due for A1C. BS elevated and not controlled. Script for CGM to pharmacy. Stick to ADA diet and limit carbs. Relevant Medications Continuous Glucose Crm Architect (Dexcom G7 Crm Architect) device Continuous Glucose Sensor (Dexcom G7 Sensor) misc Other Relevant Orders Microalbumin / creatinine, urine ratio Hemoglobin A1c Benign essential hypertension ([facility]) BP elevated today but did not take [...] improved and monitor. documented in this encounter [facility] 02-07-2024 History of Presen t illness [...] Arachnoid cyst Bradycardia CAD (coronary artery disease) ([facility]) CAD in [place] artery ([facility]) Cerebrovascular disease Chronic constipation Chronic diastolic heart failure ([facility]) Chronic sinusitis, unspecified location CVA (cerebral vascular accident) ([facility]) Depression ([facility]) Diabetes ([facility]) Dyslipidemia ([facility]) Fibromyalgia SCOTTY (generalized anxiety disorder) ([facility]) GERD (gastroesophageal reflux disease) Hiatal hernia HTN (hypertension) ([facility]) Hyperkalemia Hyperlipidemia ([facility]) Insomnia, persistent Kidney disease MDD (major depressive disorder), recurrent episode, mild ([facility]) ([facility]) Overflow incontinence Primary osteoarthritis of both knees Pulmonary hypertension ([facility]) Seasonal allergic rhinitis due to pollen Stage 3b chronic kidney disease (CKD) ([facility]) Type 2 diabetes mellitus with hyperglycemia, without long-term current use of insulin ([facility]) Vitamin D deficiency Medications: Current Outpatient Medications: [...] tablet before bedtime., Disp: , Rfl: HYDROcodone-acetaminophen ([place]) 5-325 MG tablet, Take 1 tablet by [...] if needed., Disp: , Rfl: nystatin (Mycostatin) [id number] UNIT/GM powder, Apply 1 application topically in [...] 0 min Stress: Stress Concern Present (01/22/2024) [employer] [place] [employer] - Occupational Stress Questionnaire Feeling of Stress : To some extent Social Connections: Moderately Isolated (01/22/2024) Social Connection and Isolation Panel [NHANES] Frequency of Communication with Friends and Family: Three times a week Frequency of Social Gatherings with Friends and Family: Twice a week Attends Evangelical Services: 1 to 4 times per year Active Member of Clubs or Organizations: No Attends Club or Organization Meetings: Never Marital Status: Intimate Partner Violence: Unknown (04/12/2023) [facility] [place] [facility] Environment Fear of [...] and negative PT pedal pulses NEURO: 5.07 Benld John Paul monofilament test positive to digits [...] Turner Wilkins DPM documented in this encounter [facility] 11-12-2023 History of Presen t illness Narrative Associated Problem(s): CAD in [place] artery ([facility]) No symptoms and follow with cardiology. Associated Problem(s): Type 2 diabetes mellitus with hyperglycemia, without long-term current use of insulin ([facility]) Not checking BS and due for A1C. [...] Major depressive disorder, recurrent episode, mild (HCC) ([facility]) Mood stable with medication and continue. Primary osteoarthritis of both knees Pain stable and use norco PRN. Relevant Medications HYDROcodone-acetaminophen ([place]) 5-325 MG tablet Stage 3b chronic kidney [...] Diagnoses Skin candidiasis Relevant Medications nystatin (Mycostatin) 418914 UNIT/GM powder documented in this encounter [facility] 08-20-2023 Note [place] Cardiology - [facility] Subjective Elif Turner is a [...] Problem List Diagnosis Coronary artery disease involving [place] coronary artery of [place] heart without angina pectoris CKD stage [...] dehydration and JAKI, treated by hydration at [facility] and did well. Since then she has been feeling well and has been eating and drinking well and no longer takes trazodone and lasix is 40 mg daily. No chest pain and no dyspnea. Her Cr on 07/09/2017 was 1.96 and down to 1.7 on 07/10/2017. Update 11/16/2017: She is seen in follow up. Most recently she was admitted to [facility] with decompensated diastolic heart failure. [...] I saw her after her admission to [facility] with heart failure and she [...] Most recently she was admitted to the [facility] and transferred to [facility] due to decompensated diastolic heart failure in the setting of UTI. She underwent right heart catheterization that showed significantly elevated filling pressures and pulmonary hypertension. She underwent diuresis. Her renal function at discharge (more content not included)... [facility] 01-31-2023 Note Cardiovascular Medic ine [facility] SUBJECTIVE Chief Complaint Patient presents with [...] sinus rhythm at 94 bpm, old inferior IL, comparable to prior ECG. Visit of 07/18/2017: At last visit of 06/20/2017 I had increased lasix from 60 to 80 mg daily. After that she was not eating or drinking after she was started on trazodone. She developed dehydration and JAKI, treated by hydration at [facility] and did well. Since then she has been feeling well and has been eating and drinking well and no longer takes trazodone and lasix is 40 mg daily. No chest pain and no dyspnea. Her Cr on 07/09/2017 was 1.96 and down to 1.7 on 07/10/2017. Update 11/16/2017: She is seen in follow up. Most recently she was admitted to [facility] with decompensated diastolic heart failure. [...] I saw her after her admission to [facility] with heart failure and she [...] Most recently she was admitted to the [facility] and transferred to [facility] due to decompensated diastolic heart failure in [...] 56. (more content not included)... [facility] 01-31-2023 Note Patient here for [...] systems reviewed and are negative. [facility] 08-29-2022 Note SUBJECTIVE: Chief complaint: [...] History: Diagnosis Date CHF (congestive heart failure) ([facility]) Chronic kidney disease Coronary artery disease Diabetes mellitus ([facility]) H/O total hysterectomy Heart attack ([facility]) Hyperlipidemia Hypertension Past Surgical History: [...] and at bedtime., Disp: , Rfl: HYDROcodone-acetaminophen ([place]) 5-325 mg tablet, Take 1 tablet by [...] mg (more content not included)... [facility] 06-25-2021 Progress note Note Date/Time June 25, 2021 11:18am 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 Turner is doing well today status post PCI to the RCA (DIRECTOR OF SOFTWARE ENGINEERING) done per Dr. Bolivar yesterday. 2 drug-eluting [...] MPV Neut % (Auto) Lymph % (Auto) Hard[place] % (Auto) Eos % (Auto) Baso % (Auto) Neut # (Auto) Lymph # (Auto) Hard[place] # (Auto) Eos # (Auto) Baso # [...] % (Auto) 90.9 Lymph % (Auto) 4.3 Harding % (Auto) 4.5 Eos % (Auto) 0.0 Baso % (Auto) 0.3 Neut # (Auto) 9.6 H Lymph # (Auto) 0.4 L Harding # (Auto) 0.5 Eos # (Auto) 0.0 Baso # (Auto) 0.0 Nucleated RBC % (auto) 0.0 PT INR APTT POC Glucose 322 294 POC Glucose Comment Troponin I High Sens 06/25/21 06/25/21 06/25/21 05:24 05:24 07:51 Corrected WBC Uncorrected WBC Count RBC Hgb Hct MCV MCH MCHC RDW Plt Count MPV Neut % (Auto) Lymph % (Auto) Harding % (Auto) Eos % (Auto) Baso % (Auto) Neut # (Auto) Lymph # (Auto) [place] # (Auto) Eos # (Auto) Baso # [...] days. Patient may follow-up with her primary aluminum fabrication supervisor in [place] and should do so within 10 days [...] Code(s): I25.10 - Atherosclerotic heart disease of [place] coronary artery without angina pectoris Status: Acute Plan: Recommendations as above (4) Diabetes: Assessment/Problem Details: Primary hook up driver of risk for ongoing progressive coronary heart disease. Code(s): E11.9 - Type 2 diabetes mellitus without complications Status: Acute Plan: Okay to resume oral metformin in 24 hours. Aggressive glycemic control and control of serum insulin levels is recommended. (5) HTN (hypertension): Assessment/Problem Details: Also major hook up driver for risk of progressive/recurrent coronary heart disease Code(s): I10 - Essential (primary) hypertension Status: Acute Plan: Low-sodium DASH?2 diet is recommended Maintain medical therapy as outlined above. Within the construct of phase 2 monitored cardiac rehabilitation, a minimum 10% total body weight loss is strongly recommended Plan Okay for discharge to home today. Patient may follow-up with her primary aluminum fabrication supervisor in [place] within 10 days. Again, as mentioned above, enrollment in phase2 monitored cardiac rehabilitation is strongly recommended Time spent with patient Time Spent With Patient (min): 30 Documented By: Andrea Marinelli MD 06/25/21 1116 Signed By: <Electronically signed by Andrea Marinelli MD> 06/25/21 1127 [facility] Work Phone: 1(135) 100-358505-07-2022 History of Present illness Narrative* Andreas Freitas MD - 06/25/2021 10:50 AM EDT Images from the original note were not included. EMERGENCY TRIAGE, TREAT AND TRANSPORT (ET3) DOCUMENTATION OF TELEHEALTH VISIT Date / Time: 06/23/20211929 Name: Elif Turner : 1945 SSN: (Not on file) EMS Agency: [facility] [x] Verbal consent obtained [] [...] vomiting, fever. She does have nausea. She [id number] due to the chest pain, but the [...] by: Andreas Freitas MD documented in this [id number] Progress note Author Rusty Amor [facility] June 24, 2021 4:36pm Note Date/Time June 24, 2021 3:50pm [facility] [address] [place] [address] Hospitalist Progress Note Signed Patient: Elif Turner MR#: [id number] : 1945 Acct:[id number] Age/Sex: 75 / F Adm Date: 2 Loc: 4 Room: [address] [place] [address] Type : ADM IN Attending Dr: Rusty [...] of care and confirmed it with the resident/student/ENGRAVINGS POLISHER. Patient was seen and examined at bedside [...] Nitroglycerin 50 Mg-*D5w* IV 06/24/22 15:29 .Q24H [facility] Protocol 5 MCG/MIN Insulin Aspart 0 units 06/24/21 08:00 06/24/21 12:10 Insulin Aspart 300 Units/3 Ml Insuln.Pen SUBCUT 06/24/22 07:59 Not Given TID.WM.HS [facility] Protocol Insulin Detemir 10 units 06/24/21 22:00 Insulin Detemir 300 Units/3 Ml Insuln.Pen SUBCUT 06/24/22 21:59 QHS BOYD Lidocaine HCl 10 ml 06/24/21 13:52 Lidocaine [...] 10 Mg Tablet PO 06/24/22 21:59 HS [facility] Nitroglycerin 0.4 mg 06/24/21 05:27 Nitroglycerin [...] 15 Mg Capsule PO 06/24/22 21:59 HS [facility] Ticagrelor 90 mg 06/24/21 23:00 Ticagrelor 90 [...] CKD ?BUN 32 and creatinine 2.05 at [facility] yesterday Continue home medications. PT/OT Full code Rapid COVID-negative at [facility] Documented By: Nick Carr DO, RES 06/24/21 154 7 Signed By: <Electronically signed by DO JOSE DE JESUS Carr> 06/24/21 1633 <Electronically signed by Rusty Amor MD> 06/24/21 1636 [facility] Work Phone: 1(479) 133-246105-06-2022 Consult note Author W Osmel [facility] June 24, 2021 2:02pm Note Date/Time June 24, 2021 12:55p [facility] [address] [place] [address] Cardiology Consult Note Signed Patient: Elif Turner MR#: [id number] : 1945 Acct:[id number] Age/Sex: 75 / F Adm Date: 2 Loc: Room: [address] [place] [address] Type : ADM IN Attending Dr: Rusty Amor MD Copies to: MD Amador Winston MD W Scott Sheldon, DO~ Cardiology HPI History of Present Illness Consult Date: 06/24/21 Reason for Consult: Non-ST elevation [place] HPI: Ms. Turner is a 75 year [...] previous stents approximately 7 years ago in [place] details of which are unknown She really routinely follows with cardiology and saw her aluminum fabrication supervisor 3 months ago with no symptoms Comorbidities [...] x10E3/uL Lymph # (Auto) 1.8 (1.00-4.8) x10E3/uL [place]ing # (Auto) 0.6 (0.0-0.8) x10E3/uL Eos # [...] Code(s): I25.10 - Atherosclerotic heart disease of [place] coronary artery without angina pectoris (4) Diabetes: Code(s): E11.9 - Type 2 diabetes mellitus without complications (5) HTN (hypertension): Code(s): I10 - Essential (primary) hypertension Documented By: Gen Bolivar DO 06/24/21 1248 Signed By: <Electronically signed by Gen Bolivar DO> 06/24/21 1405 [facility] Work Phone: 1(748) 392-718805-06-2022 [facility]22 History and physical note Author Xander Nam [facility] June 24, 2021 6:14am Note Date/Time June 24, 2021 5:14am [facility] [address] [place] [address] Hospitalist H&P Signed Patient: Elif Turner MR#: [id number] : 1945 Acct:[id number] Age/Sex: 75 / F Adm Date: 2 Loc: Room: [address] [place] [address] Type : ADM IN Attending Dr: Xander [...] type II, fibromyalgia, CKD who [facility] that started in the afternoon while she was watching TV with associated shortness of breath. She described this pain as pressure that involved her left chest as well as left breast and axilla. She presented to the [facility] emergency department and blood pressure was 160/71 [...] and 12 units/kg/h. She was transferred to [facility] for cardiac care for NSTEMI. The patient denied fever/chills, N/V, constipation/diarrhea. She does have history of chronic headaches however notes worsening of headache since yesterday. She does take Lasix as well with as needed for pedal edema. On evaluation at [facility], patient continues to endorse resting chest pain however diminished since initial presentation at [facility]. Per RN she was saturating 94% on [...] yesterday afternoon. ?Chest x-ray unremarkable ?EKG at [facility] normal sinus rhythm with no acute ischemia ?At [facility] troponin 162.6 with repeat 658.9. Repeat at [facility] ordered. ?Patient received bolus porcine heparin at 60 units/kg at [facility] with maintenance at 12 units/kg/h. Maintenance will be continued here. ?Coreg initiated at 12.5 mg twice daily. We will hold amlodipine pending cardiology recommendation. ?Continue losartan. ? Hold amlodipine and lasix pending cardiology consult. ?Cardiology consult ?Morphine for severe pain. Target pulse ox greater than 90%. Nitro for worsening chest pain. Received 324 mg aspirin at [facility]. 2. Coronary artery disease ?Status post 2 stents 5 and 7 years ago respectively per patient ?Continue atorvastatin 40 mg and 81 mg aspirin 3. Diabetes ?Hold home metformin and glipizide ?Initiate basal detemir 10 units with sliding scale coverage 4. CKD ?BUN 32 and creatinine 2.05 at [facility] yesterday Continue home medications. PT/OT Full code Rapid COVID-negative at [facility] Attending Provider Attestation Attending Physician Attestation: I personally saw this patient on the day of the encounter, reviewed the history,performed the cruz elements of the exam, formulated the plan of care and confirmed the resident's/internet project manager/medical student's dictation/written note. Documented By: Marlon Leon DO, RES 06/24/21 050 4 Signed By: <Electronically signed by DO JOSE DE JESUS Leon> 06/24/21 0537 <Electronically signed by Xander Ortiz MD> 06/24/21 0614 [facility] Work Phone: 1(790) 654-902111-30-2021 NoteChief Complaint consultation for epigastric pain HPI [...] Flonase 0.05 mg/inh nasa (more content not included)...[facility]:Result Comment: Electronically Signed By: ANGEL BARRIOS, Neel Gamboa\Date and Time Signed: 01/18/21 20:28 ESTDischarge summary Author Rusty Amor [facility] June 25, 2021 1:30pm Note Date/Time June 25, 2021 1:30pm [facility] [address] [place] [address] Discharge Summary Signed Patient: Elif Turner MR#: [id number] : 1945 Acct:[id number] Age/Sex: 75 / F Adm Date: 2 Loc: Room: [address] [place] [address]: Rusty Amor MD Copies to: [...] She presented to the emergency department of [facility] on June 24, complaining of chest discomfort. Her troponins were abnormal. She was transferred to our hospital with a diagnosis of non-STEMI. She was taken to the [facility] on June 25, where she underwent coronary [...] W Domingo Bolivar DO s CL PCI DIRECTOR OF SOFTWARE ENGINEERING 1st Vessel RCA BAMBI - W Domingo [...] % (Auto) 90.9, Lymph % (Auto) 4.3, Harding % (Auto) 4.5, Eos % (Auto) 0.0, Baso % (Auto) 0.3, Neut # (Auto) 9.6 H, Lymph # (Auto) 0.4 L, [place]ing # (Auto)0.5, Eos # (Auto) 0.0, Baso [...] doctor or pharmacist, without first calling the aluminum fabrication supervisor who implanted the stent. If you require [...] weight lifting, stair steppers, etc. until the aluminum fabrication supervisor approves these activities. Check with the aluminum fabrication supervisor on your first follow-up visit. CALL YOUR PHYSICIAN at [phone]: -If bleeding should occur from the catheter insertion site- apply pressure to the site then immediately call us. -Report any fever, redness, drainage, increased swelling, or firmness at the catheter insertion site. Some bruising or slight swelling may be present at thetime of discharge. -Should arm or leg become cold, numb, white, or blue, contact the aluminum fabrication supervisor immediately. -IF you should experience episodes of [...] is recommended. Please call Central Scheduling at [phone] to schedule your appointment.] The attending aluminum fabrication supervisor or [facility] nurse clinician should provide you with specific instructions regarding activity, diet, medications, and further follow up for you. Follow the medication instructions provided on your discharge. If the dosages and instructions on this sheet differ from the dosage and instructions on the bottle, follow the instructions on the bottle. [facility] is not responsible for incorrect [...] Sunday to schedule follow- up with your Gis Engineer. ) Documented By: Rusty Amor MD 06/25/21 1326 Signed By: <Electronically signed by Rusty Amor MD> 06/25/21 1330 [facility] Work Phone: Evaluation note* Diagnosis Chest pain, unspecified type- Primary PND (paroxysmal nocturnal dyspnea) Other dyspnea and respiratory abnormality [facility] Diagnosis Onset Date Resolution Status CAD (coronary artery disease) acute Chronic kidney disease acute Depression acute Diabetes acute Fibromyalgia acute GERD (gastroesophageal reflux disease) acute HTN (hypertension) acute NSTEMI (non-ST elevated myocardial infarction) acute [facility] Work Phone: Evaluation note* Diagnosis Type 2 diabetes mellitus with hyperglycemia, without long-term current use of insulin (CMS/HCC)- Primary Benign essential hypertension (CMS/HCC) Essential hypertension, benign Primary osteoarthritis of both knees Fibromyalgia Unspecified myalgia and myositis Major depressive disorder, recurrent episode, mild (HCC) (CMS/HCC) Major depressive disorder, recurrent episode, mild Generalized anxiety disorder (CMS/HCC) Generalized anxiety disorder Chronic diastolic heart failure (CMS/HCC) Chronic diastolic heart failure Gastroesophageal reflux disease without esophagitis Esophageal reflux Encounter for long-term (current) use of medications Encounter for long-term (current) use of other medications Dyslipidemia (CMS/HCC) Other and unspecified hyperlipidemia Vitamin D deficiency Type 2 diabetes mellitus with hyperglycemia, without long-term current use of insulin ([facility])- Primary Benign essential hypertension ([facility]) Essential hypertension, benign Chronic diastolic heart failure ([facility]) Chronic diastolic heart failure Major depressive disorder, recurrent episode, mild (HCC) ([facility]) Major depressive disorder, recurrent episode, mild Generalized anxiety disorder ([facility]/HCC) Generalized anxiety disorder Fibromyalgia Unspecified myalgia and myositis Gastroesophageal reflux disease without esophagitis Esophageal reflux Primary insomnia Persistent disorder of initiating or maintaining sleep Primary osteoarthritis of both knees Stage 3b chronic kidney disease (CKD) ([facility]) Dyslipidemia ([facility]) Other and unspecified hyperlipidemia Encounter for long-term (current) use of medications Encounter for long-term (current) use of other medications Obesity (BMI 30-39.9) Acute UTI Urinary tract infection, site not specified Skin candidiasis Candidiasis of skin and nails CAD in [place] ([facility]) Type 2 diabetes mellitus with diabetic chronic kidney disease ([facility]) Primary insomnia Persistent disorder of initiating or maintaining sleep documented in this encounter [facility] HealthcareEvaluation [facility]* Diagnosis Type 2 diabetes mellitus with hyperglycemia, without long-term current use of insulin ([facility])- Primary Benign essential hypertension ([facility]) Essential hypertension, benign Primary osteoarthritis of both knees Fibromyalgia Unspecified myalgia and myositis Major depressive disorder, recurrent episode, mild (HCC) ([facility]) Major depressive disorder, recurrent episode, mild Generalized anxiety disorder ([facility]) Generalized anxiety disorder Chronic diastolic heart failure ([facility]) Chronic diastolic heart failure Gastroesophageal reflux disease without esophagitis Esophageal reflux Encounter for long-term (current) use of medications Encounter for long-term (current) use of other medications Dyslipidemia ([facility]) Other and unspecified hyperlipidemia Vitamin D deficiency Type 2 diabetes mellitus with hyperglycemia, without long-term current use of insulin ([facility])- Primary Benign essential hypertension ([facility]) Essential hypertension, benign Chronic diastolic heart failure ([facility]) Chronic diastolic heart failure Major depressive disorder, recurrent episode, mild (HCC) ([facility]) Major depressive disorder, recurrent episode, mild Generalized anxiety disorder ([facility]) Generalized anxiety disorder Fibromyalgia Unspecified myalgia and myositis Gastroesophageal reflux disease without esophagitis Esophageal reflux Primary insomnia Persistent disorder of initiating or maintaining sleep Primary osteoarthritis of both knees Stage 3b chronic kidney disease (CKD) ([facility]) Dyslipidemia ([facility]) Other and unspecified hyperlipidemia Encounter for long-term (current) use of medications Encounter for long-term (current) use of other medications Obesity (BMI 30-39.9) Acute UTI Urinary tract infection, site not specified Skin candidiasis Candidiasis of skin and nails CAD in [place] ([facility]) Type 2 diabetes mellitus with diabetic chronic kidney disease ([facility]) Primary osteoarthritis of both knees documented in this encounter [facility] HealthcareEvaluation note* Diagnosis Type 2 diabetes mellitus with hyperglycemia, without long-term current use of insulin ([facility])- Primary Benign essential hypertension ([facility]) Essential hypertension, benign Chronic diastolic heart failure ([facility]) Chronic diastolic heart failure Major depressive disorder, recurrent episode, mild (HCC) ([facility]) Major depressive disorder, recurrent episode, mild Generalized anxiety disorder ([facility]) Generalized anxiety disorder Fibromyalgia Unspecified myalgia and myositis Gastroesophageal reflux disease without esophagitis Esophageal reflux Primary insomnia Persistent disorder of initiating or maintaining sleep Primary osteoarthritis of both knees Stage 3b chronic kidney disease (CKD) ([facility]) Dyslipidemia ([facility]) Other and unspecified hyperlipidemia Encounter for long-term (current) use of medications Encounter for long-term (current) use of other medications Obesity (BMI 30-39.9) Acute UTI Urinary tract infection, site not specified Skin candidiasis Candidiasis of skin and nails CAD in [place] ([facility]) Type 2 diabetes mellitus with diabetic chronic kidney disease ([facility]) documented in this encounter [facility] HealthcareEvaluation note* Diagnosis Type 2 diabetes mellitus with hyperglycemia, without long-term current use of insulin ([facility])- Primary Benign essential hypertension ([facility]) Essential hypertension, benign Primary osteoarthritis of both knees Fibromyalgia Unspecified myalgia and myositis Major depressive disorder, recurrent episode, mild (HCC) ([facility]) Major depressive disorder, recurrent episode, mild Generalized anxiety disorder ([facility]) Generalized anxiety disorder Chronic diastolic heart failure ([facility]) Chronic diastolic heart failure Gastroesophageal reflux disease without esophagitis Esophageal reflux Encounter for long-term (current) use of medications Encounter for long-term (current) use of other medications Dyslipidemia ([facility]) Other and unspecified hyperlipidemia Vitamin D deficiency Type 2 diabetes mellitus with hyperglycemia, without long-term current use of insulin ([facility])- Primary Benign essential hypertension ([facility]/HCC) Essential hypertension, benign Chronic diastolic heart failure ([facility]) Chronic diastolic heart failure Major depressive disorder, recurrent episode, mild (HCC) ([facility]) Major depressive disorder, recurrent episode, mild Generalized anxiety disorder ([facility]) Generalized anxiety disorder Fibromyalgia Unspecified myalgia and myositis Gastroesophageal reflux disease without esophagitis Esophageal reflux Primary insomnia Persistent disorder of initiating or maintaining sleep Primary osteoarthritis of both knees Stage 3b chronic kidney disease (CKD) ([facility]) Dyslipidemia ([facility]) Other and unspecified hyperlipidemia Encounter for long-term (current) use of medications Encounter for long-term (current) use of other medications Obesity (BMI 30-39.9) Acute UTI Urinary tract infection, site not specified Skin candidiasis Candidiasis of skin and nails CAD in [place] ([facility]) Type 2 diabetes mellitus with diabetic chronic kidney disease ([facility]) Type 2 diabetes mellitus without complication, unspecified whether prison insulin use ([facility])- Primary Pain due to onychomycosis of toenails of both feet Venous insufficiency Unspecified venous (peripheral) insufficiency documented in this encounter [facility] HealthcareEvaluation note* Diagnosis Type 2 diabetes mellitus with hyperglycemia, without long-term current use of insulin ([facility])- Primary Benign essential hypertension ([facility]) Essential hypertension, benign Primary osteoarthritis of both knees Fibromyalgia Unspecified myalgia and myositis Major depressive disorder, recurrent episode, mild (HCC) ([facility]) Major depressive disorder, recurrent episode, mild Generalized anxiety disorder ([facility]) Generalized anxiety disorder Chronic diastolic heart failure ([facility]) Chronic diastolic heart failure Gastroesophageal reflux disease without esophagitis Esophageal reflux Encounter for long-term (current) use of medications Encounter for long-term (current) use of other medications Dyslipidemia ([facility]) Other and unspecified hyperlipidemia Vitamin D deficiency Type 2 diabetes mellitus with hyperglycemia, without long-term current use of insulin ([facility])- Primary Benign essential hypertension ([facility]) Essential hypertension, benign Chronic diastolic heart failure ([facility]) Chronic diastolic heart failure Major depressive disorder, recurrent episode, mild (HCC) ([facility]) Major depressive disorder, recurrent episode, mild Generalized anxiety disorder ([facility]) Generalized anxiety disorder Fibromyalgia Unspecified myalgia and myositis Gastroesophageal reflux disease without esophagitis Esophageal reflux Primary insomnia Persistent disorder of initiating or maintaining sleep Primary osteoarthritis of both knees Stage 3b chronic kidney disease (CKD) ([facility]) Dyslipidemia ([facility]) Other and unspecified hyperlipidemia Encounter for long-term (current) use of medications Encounter for long-term (current) use of other medications Obesity (BMI 30-39.9) Acute UTI Urinary tract infection, site not specified Skin candidiasis Candidiasis of skin and nails CAD in [place] ([facility]) Type 2 diabetes mellitus with diabetic chronic kidney disease ([facility]) Primary osteoarthritis of both knees documented in this encounter [facility] HealthcareEvaluation note* Diagnosis Type 2 diabetes mellitus with hyperglycemia, without long-term current use of insulin ([facility])- Primary Benign essential hypertension ([facility]) Essential hypertension, benign Primary osteoarthritis of both knees Fibromyalgia Unspecified myalgia and myositis Major depressive disorder, recurrent episode, mild ([facility]) ([facility]) Major depressive disorder, recurrent episode, mild Generalized anxiety disorder ([facility]) Generalized anxiety disorder Chronic diastolic heart failure ([facility]) Chronic diastolic heart failure Gastroesophageal reflux disease without esophagitis Esophageal reflux Encounter for long-term (current) use of medications Encounter for long-term (current) use of other medications Dyslipidemia ([facility]) Other and unspecified hyperlipidemia Vitamin D deficiency Type 2 diabetes mellitus with hyperglycemia, without long-term current use of insulin ([facility])- Primary Benign essential hypertension ([facility]) Essential hypertension, benign Chronic diastolic heart failure ([facility]) Chronic diastolic heart failure Major depressive disorder, recurrent episode, mild (HCC) ([facility]) Major depressive disorder, recurrent episode, mild Generalized anxiety disorder ([facility]) Generalized anxiety disorder Fibromyalgia Unspecified myalgia and myositis Gastroesophageal reflux disease without esophagitis Esophageal reflux Primary insomnia Persistent disorder of initiating or maintaining sleep Primary osteoarthritis of both knees Stage 3b chronic kidney disease (CKD) ([facility]) Dyslipidemia ([facility]) Other and unspecified hyperlipidemia Encounter for long-term (current) use of medications Encounter for long-term (current) use of other medications Obesity (BMI 30-39.9) Acute UTI Urinary tract infection, site not specified Skin candidiasis Candidiasis of skin and nails CAD in [place] ([facility]) Type 2 diabetes mellitus with diabetic chronic kidney disease ([facility]) Left elbow pain- Primary Pain in joint, upper arm Type 2 diabetes mellitus with hyperglycemia, without long-term current use of insulin ([facility]) Benign essential hypertension ([facility]) Essential hypertension, benign Chronic diastolic heart failure ([facility]) Chronic diastolic heart failure Encounter for long-term (current) use of medications Encounter for long-term (current) use of other medications Primary osteoarthritis of both knees Stage 3b chronic kidney disease (CKD) ([facility]) Dyslipidemia ([facility]) Other and unspecified hyperlipidemia Class 1 obesity due to excess calories with serious comorbidity and body mass index (BMI) of 33.0 to 33.9 in adult Type 2 diabetes mellitus with diabetic chronic kidney disease ([facility]) documented in this encounter [facility] HealthcareEvaluation note* Diagnosis Type 2 diabetes mellitus with hyperglycemia, without long-term current use of insulin ([facility])- Primary Benign essential hypertension ([facility]) Essential hypertension, benign Primary osteoarthritis of both knees Fibromyalgia Unspecified myalgia and myositis Major depressive disorder, recurrent episode, mild (HCC) ([facility]) Major depressive disorder, recurrent episode, mild Generalized anxiety disorder ([facility]) Generalized anxiety disorder Chronic diastolic heart failure ([facility]) Chronic diastolic heart failure Gastroesophageal reflux disease without esophagitis Esophageal reflux Encounter for long-term (current) use of medications Encounter for long-term (current) use of other medications Dyslipidemia ([facility]) Other and unspecified hyperlipidemia Vitamin D deficiency Type 2 diabetes mellitus with hyperglycemia, without long-term current use of insulin ([facility])- Primary Benign essential hypertension ([facility]) Essential hypertension, benign Chronic diastolic heart failure ([facility]) Chronic diastolic heart failure Major depressive disorder, recurrent episode, mild (HCC) ([facility]) Major depressive disorder, recurrent episode, mild Generalized anxiety disorder ([facility]) Generalized anxiety disorder Fibromyalgia Unspecified myalgia and myositis Gastroesophageal reflux disease without esophagitis Esophageal reflux Primary insomnia Persistent disorder of initiating or maintaining sleep Primary osteoarthritis of both knees Stage 3b chronic kidney disease (CKD) ([facility]) Dyslipidemia ([facility]) Other and unspecified hyperlipidemia Encounter for long-term (current) use of medications Encounter for long-term (current) use of other medications Obesity (BMI 30-39.9) Acute UTI Urinary tract infection, site not specified Skin candidiasis Candidiasis of skin and nails CAD in [place] ([facility]) Type 2 diabetes mellitus with diabetic chronic kidney disease ([facility]) Left elbow pain- Primary Pain in joint, upper arm Type 2 diabetes mellitus with hyperglycemia, without long-term current use of insulin ([facility]) Benign essential hypertension ([facility]) Essential hypertension, benign Chronic diastolic heart failure ([facility]) Chronic diastolic heart failure Encounter for long-term (current) use of medications Encounter for long-term (current) use of other medications Primary osteoarthritis of both knees Stage 3b chronic kidney disease (CKD) ([facility]) Dyslipidemia ([facility]) Other and unspecified hyperlipidemia Class 1 obesity due to excess calories with serious comorbidity and body mass index (BMI) of 33.0 to 33.9 in adult Type 2 diabetes mellitus with diabetic chronic kidney disease ([facility]) Primary insomnia Persistent disorder of initiating or maintaining sleep [facility] Discharge instructionsAmbulatory Orders* Initiate Home Health [...] doctor or pharmacist, without first calling the aluminum fabrication supervisor who implanted the stent. If you require [...] weight lifting, stair steppers, etc. until the aluminum fabrication supervisor approves these activities. Check with the aluminum fabrication supervisor on your first follow-up visit. CALL YOUR PHYSICIAN at [phone]: -If bleeding should occur from the catheter insertion site- apply pressure to the site then immediately call us. -Report any fever, redness, drainage, increased swelling, or firmness at the catheter insertion site. Some bruising or slight swelling may be present at the time of discharge. -Should arm or leg become cold, numb, white, or blue, contact the aluminum fabrication supervisor immediately. -IF you should experience episodes of [...] is recommended. Please call Central Scheduling at [phone] to schedule your appointment.] The attending aluminum fabrication supervisor or [facility] nurse clinician should provide you with specific instructions regarding activity, diet, medications, and further follow up for you. Follow the medication instructions provided on your discharge. If the dosages and instructions on this sheet differ from the dosage and instructions on the bottle, follow the instructions on the bottle. [facility] is not responsible for incorrect prescription information provided by the patient during their visit. Do not stop your medications without consulting your health care provider. Please take the list with you to your next doctor's appointment. Home Health to manage care: - Full code - PT/OT eval and treat - [facility]: Summary Purpose Family [...] and content) DATE CREATED AUTHOR 09/19/2017 [facility] DATE CREATED AUTHOR AUTHOR'S ORGANIZ ATION 11/23/2019 [facility] DATE CREATED AUTHOR AUTHOR'S ORGANIZ ATION 05/07/2021 [facility] DATE CREATED AUTHOR AUTHOR'S ORGANIZ ATION 07/30/2021 [facility] DATE CREATED AUTHOR AUTHOR'S ORGANIZ ATION 03/25/2022 [facility] DATE CREATED AUTHOR AUTHOR'S ORGANIZ ATION 07/05/2022 [facility] DATE CREATED AUTHOR AUTHOR'S ORGANIZ ATION 08/21/2023 [facility] DATE CREATED AUTHOR AUTHOR'S ORGANIZ ATION 03/05/2024 [facility] DATE CREATED AUTHOR AUTHOR'S ORGANIZ ATION 03/21/2024 [facility] Reason for Visit (unrecogniz ed section and content) Reason Comments Chest symptoms/complaints Reason Comments Med Refill Reason Comments Follow-up 6m UTI Reason Comments DM Foot Care Dm nail care Reason Comments Follow-up [facility] er f/up 02/23/24 Knee Pain Care Teams [...] Amador Abdalla MD Primary Care Provider Active Grievance Coordinator Relationship Specialty Start Date End Date Amador Abdalla MD [address] [place] [id number] PCP - General Family Medicine 04/25/23 Grievance Coordinator Relationship Specialty Start Date End Date Amador Abdalla MD [address] [place] [phone] PCP - General Family Medicine 04/25/23 Grievance Coordinator Relationship Specialty Start Date End Date Amador Abdalla MD [address] [place] [phone] PCP - General Family Medicine 04/25/23 Grievance Coordinator Relationship Specialty Start Date End Date Amador Abdalla MD [address] [place] [phone] PCP - General Family Medicine 04/25/23 Grievance Coordinator Relationship Specialty Start Date End Date Amador Abdalla MD [address] [place] [phone] PCP - General Family Medicine 04/25/23 Grievance Coordinator Relationship Specialty Start Date End Date Amador Abdalla MD [address] [place] [address] PCP - General Family Medicine 04/25/23 Grievance Coordinator Relationship Specialty Start Date End Date Amador Abdalla MD [address] [place] [phone] PCP - General Family Medicine 04/25/23 Grievance Coordinator Relationship Specialty Start Date End Date Amador Abdalla MD [address] [place] [phone] PCP - General Family Medicine 04/25/23 Carmina Garcia, [facility] Local City Driver Family Medicine 02/28/24 Miguel Blank MA Family Medicine 02/28/24 Grievance Coordinator Relationship Specialty Start Date End Date Amador Abdalla MD [address] [place] [phone] PCP - General Family Medicine 04/25/23 Carmina Garcia, [employer] Local City Driver Family Medicine 02/28/24 Miguel Blank MA Family Medicine 02/28/24 Grievance Coordinator Relationship Specialty Start Date End Date Amador Abdalla MD [address] [place] [phone] PCP - General Family Medicine 04/25/23 Carmina Garcia, [facility] Local City Driver Family Medicine 02/28/24 Miguel Blank MA Family Medicine 02/28/24 Grievance Coordinator Relationship Specialty Start Date End Date Amador Abdalla MD [address] [place] [phone] PCP - General Family Medicine 04/25/23 Carmina Garcia, QUANTITATIVE CONSULTANT Local City Driver Family Medicine 02/28/24 Miguel Blank MA Family Medicine 02/28/24 Grievance Coordinator Relationship Specialty Start Date End Date Amador Abdalla MD [address] [place] [phone] PCP - General Family Medicine 04/25/23 Carmina Garcia, [facility] Local City Driver Family Medicine 02/28/24 Miguel Blank MA Family Medicine 02/28/24 Grievance Coordinator Relationship Specialty Start Date End Date Amador Abdalla MD [address] [place] [address] PCP - General Family Medicine 04/25/23 Carmina Garcia, [facility] Local City Driver [facility] Medicine 02/28/24 Miguel Blank MA Family [...] BE BASED ON THE PRIMARY CLINICAL RECORDS. [employer] [facility]. provides no warranty or guarantee of the accuracy or completeness of information in this document.
--- NOTE | 2024-04-22 12:47 | SWNOTE1 ---
JIMMIE received call from ED principal secretary and pt is here and just left [place] not long ago and doctor requesting SW come see pt as she may need rehab. JIMMIE called and confirmed with Lul, pt was discharged on 04/19/24. In order for pt to go to any facility for rehab her insurance will have to precert her again and give approval. JIMMIE called back to ED and spoke with Dr. Merrill and let him know about pt needing precert.
--- NOTE | 2024-04-22 13:28 | ECG_ITS ---
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
--- NOTE | 2024-04-22 13:51 | P.HP_ITS ---
HPI H&P: HPI History of Present Illness Chief complaint: LOWER BACK PAIN, MULTIPLE LUMBAR FX Narrative: Patient seen and evaluated in the emergency room with increasing back pain and also some shortness of breath with anterior chest wall pain. Daughter also noted increasing shortness of breath and she was not on her Lasix while she was at the intermediate Opioid HPI Opioid Management Most Recent Pain and Opioid Data: Last Pain Scale 7 04/23/24 05:24 04/23/24 Last Pain Intensity 0 04/04/24 10:06 04/04/24 Last Pain Assessment 04/23/24 06:00 Last MAR Pain Assessment 04/23/24 05:24 Last ORT Total Score 0 04/22/24 14:59 04/22/24 Last ORT Risk Category Low Risk 04/22/24 14:59 04/22/24 Review of Systems ROS Status of ROS 10 or more systems reviewed and unremark able except as noted in history and below [facility] Medical History (Updated 04/22/24 @ 13:27 by Brent Merrill MD) Acute hyperglycemia ?R73.9 - Hyperglycemia, unspecified (ICD-10) Acute UTI ?N39.0 - Urinary tract infection, site not specified (ICD-10) Weakness ?R53.1 - Weakness (ICD-10) UTI (urinary tract infection) ?N39.0 - Urinary tract infection, site not specified (ICD-10) Elevated troponin ?R79.89 - Other specified abnormal findings of blood chemistry (ICD-10) Generalized weakness ?R53.1 - Weakness (ICD-10) Fall ?W19.XXXA - Unspecified fall, initial encounter (ICD-10) HTN (hypertension) ?I10 - Essential (primary) hypertension (ICD-10) HLD (hyperlipidemia) ?E78.5 - Hyperlipidemia, unspecified (ICD-10) CAD (coronary artery disease) ?I25.10 - Atherosclerotic heart disease of [place] coronary artery without angina pectoris (ICD-10) History of heart attack ?I25.2 - Old myocardial infarction (ICD-10) History of stroke ?Z86.73 - Personal history of transient ischemic attack (TIA), and cerebral infarction without residual deficits (ICD-10) Diabetes ?E11.9 - Type 2 diabetes mellitus without complications (ICD-10) Surgical History (Updated 11/18/23 @ 12:47 by Leona Mario LPN) History of heart artery stent ?Z95.5 - Presence of coronary angioplasty implant and graft (ICD-10) Hx of cholecystectomy ?Z90.49 - Acquired absence of other specified parts of digestive tract (ICD- 10) H/O hernia repair ?Z98.890 - Other specified postprocedural states (ICD-10) ?Z87.19 - Personal history of other diseases of the digestive system (ICD-10) Family History (Updated 11/18/23 @ 12:46 by Leona Mario LPN) Mother Family history of COPD (chronic obstructive pulmonary disease) Family history of cancer Family history of diabetes mellitus Father Family history of hypertension Social History (Updated 11/18/23 @ 12:49 by Leona Mario LPN) Within the past year, how often did you have a drink containing alcohol: never Within the past year, how often did you have six or more drinks on one occasion: never Score interpretation: A score less than 3 is consistent with normal alcohol consumption. Smoking status: Never smoker Second hand tobacco smoke exposure: No Non-prescribed substance use: denies use Previous occupational history: retired Known occupational exposures/hazards: No Highest level of school completed/degree received: GED or equivalent Are you now , , , , never or living with a partner: In a typical week, how many times do you talk on the telephone with family, friends, or neighbors: 3 or more times per week How often do you get together with friends or relatives: 3 or more times per week How often do you attend buddhism or zoroastrianism services: never Do you belong to any clubs or organizations such as buddhism groups unions, fraternal or athletic groups, or school groups: no Total score: 1 Score interpretation: A score of less than or equal to 1 indicates the most socially isolated. Little interest or pleasure in doing things: not at all Feeling down, depressed, or hopeless: not at all Feel stressed/tense/nervous/anxious/difficulty sleeping: not at all Due to disability, difficulty making decisions: No Do you think of yourself as: straight/heterosexual Gender Identity: female Meds Home Medications and Allergies Home Medications ?Medication ?Instructions ?Recorded ?Confirmed ?Type amlodipine 10 mg tablet 10 mg PO DAILY 11/18/23 04/22/24 History atorvastatin 80 mg tablet 80 mg PO .QHS 11/18/23 04/22/24 History bupropion HCl 150 mg 24 hr tablet, 150 mg PO DAILY 11/18/23 04/22/24 History extended release cholecalciferol (vitamin D3) 25 25 mcg PO DAILY 11/18/23 04/22/24 History mcg (1,000 unit) tablet famotidine 40 mg tablet 40 mg PO DAILY 11/18/23 04/22/24 History hydralazine 100 mg tablet 100 mg PO TID 11/18/23 04/22/24 History montelukast 10 mg tablet 10 mg PO .QHS 11/18/23 04/22/24 History nystatin 100,000 unit/gram topical 1 applic topical TID PRN rash 11/18/23 04/22/24 History powder (Klayesta) pantoprazole 40 mg tablet,delayed 40 mg PO BID 11/18/23 04/22/24 History release paroxetine HCl 40 mg tablet 40 mg PO DAILY 11/18/23 04/22/24 History sitagliptin phosphate 25 mg tablet 25 mg PO DAILY 11/18/23 04/22/24 History (Januvia) sucralfate 1 gram tablet 1 g PO .QHS 11/18/23 04/22/24 History aspirin 81 mg tablet,delayed 81 mg PO DAILY 04/02/24 04/22/24 History release (Adult Aspirin Regimen) carvedilol 25 mg tablet 25 mg PO BID 04/02/24 04/22/24 History fluticasone propionate 50 2 spray intranasal DAILY PRN nasal 04/02/24 04/22/24 History mcg/actuation nasal congestion spray,suspension metoclopramide HCl 5 mg tablet 5 mg PO .hs 04/02/24 04/22/24 History alprazolam 0.5 mg tablet 0.5 mg PO TID PRN anxiety #90 tabs 04/04/24 04/22/24 Rx hydrocodone 5 mg-acetaminophen 325 1 tab PO Q8H PRN pain (scale score 04/04/24 04/22/24 Rx mg tablet 7-10) #90 tabs temazepam 15 mg capsule 15 mg PO .QHS #30 caps 04/04/24 04/22/24 Rx furosemide 20 mg tablet 20 mg PO DAILY 04/22/24 04/22/24 History Allergies Allergy/AdvReac Type Severity Reaction Status Date / Time cyclobenzaprine (From Allergy Severe Rash Verified 04/22/24 10:50 Flexeril) ethinyl estradiol (From Allergy Severe Swelling Verified 04/22/24 10:50 Trivora (28)) of Lip/Tongue/Throat exenatide (From [place]) Allergy Severe Rash Verified 04/22/24 10:50 Iodinated Contrast Media Allergy Severe Rash Verified 04/22/24 10:50 levonorgestrel (From [place]ora Allergy Severe Swelling Verified 04/22/24 10:50 (28)) of Lip/Tongue/Throat Penicillins Allergy Severe Rash Verified 04/22/24 10:50 prochlorperazine (From Allergy Severe Confusion Verified 04/02/24 13:30 Compazine) clindamycin (From Cleocin) AdvReac Severe esophagus Verified 04/22/24 10:50 spasms doxycycline AdvReac Severe Nausea Verified 04/22/24 10:50 levofloxacin AdvReac Severe Nausea Verified 04/22/24 10:50 ticagrelor (From Brilinta) AdvReac Severe Vomiting Verified 04/22/24 10:50 trazodone AdvReac Severe Nausea Verified 04/22/24 10:50 Exam Constitutional Vital Signs, click to edit/add: Last Vital Signs Temp 98.1 F 04/22/24 10:50 Pulse 63 04/22/24 10:50 Resp 24 H 04/22/24 10:50 BP 169/58 H 04/22/24 10:50 Pulse Ox 93 L 04/22/24 10:50 O2 Del Method Nasal Cannula 04/22/24 10:50 O2 Flow Rate 2 04/22/24 10:50 Documenting provider has reviewed patient's vital signs: yes Common normals: apparent distress (Mild respiratory distress) Chest Common normals: inspection of chest normal Respiratory Common normals: abnormal respiratory effort (Mild respiratory distress) Auscultation: rales and rhonchi Cardio Common normals: regular rate and regular rhythm Back & Pelvis Common normals: CVA tenderness (Bruising noted lumbar spine) Assessment and Plan Assessment and Plan (1) Fall: (2) Anterior chest wall pain: (3) Lumbar transverse process fracture: (4) HTN (hypertension): Qualifiers: Hypertension type: primary hypertension Qualified Code(s): I10 - Essential (primary) hypertension Plan Admission findings: Uncontrolled hypertension, hypoxia with O2 sat of 90% on 2 L, CT scan with L2, 3, 4 transverse process fracture Acute combined congestive heart failure with mild peripheral edema but lung exam consistent with rales-started on IV Lasix, check troponins, consider repeat echo Transverse process fractures-physical therapy and pain control Iron deficiency anemia-monitor daily Bilateral pleural effusions likely related to the acute combined congestive heart failure-consider repeat CT scan Hypertension-continue with home medications Generalized anxiety disorder-continue with home medications Hypercholesterolemia continue with home medications GERD continue with home medications Diabetes mellitus-insulin sliding scale Insomnia-continue home medications Admission findings: Patient with transverse process fracture but more concerning to the acute combined congestive heart failure, medically necessary treatment will span 2 midnights. Inpatient status
[2024-04-22 13:54] LABS: Basophils Percent Auto 0.4 % (0.2-2.0); Eosinophils Absolute Auto 0.2 10^3/uL (0.0-0.7); Eosinophils Percent Auto 2.6 % (0.9-7.0); Hematocrit 30.1 % (36.0-48.0); Hemoglobin 9.7 g/dL (12.0-16.0); Immature Granulocytes Abs Auto 0.04 10^3/uL (0.00-0.03); Immature Granulocytes Pct Auto 0.4 % (0.0-0.5); Lymphocytes Absolute Auto 0.9 10^3/uL (1.2-3.8); Mean Corpuscular HGB Conc 32.2 g/dL (29.9-35.2); Mean Corpuscular Volume 96.2 fL (81.0-99.0); Mean Platelet Volume 10.1 fL (9.5-13.5); Monocytes Absolute Auto 0.8 10^3/uL (0.3-0.8); Monocytes Percent Auto 8.2 % (1.7-12.0); Neutrophils Absolute Auto 7.1 10^3/uL (1.4-6.5); Neutrophils Percent Auto 78.4 % (43.0-75.0); Platelet Count 257 10^3/uL (150-450); Red Blood Count 3.13 10^6/uL (4.20-5.40); Red Cell Distribution Width 12.3 % (11.0-15.0); White Blood Count 9.1 10^3/uL (4.0-11.0)
[2024-04-22 14:10] LABS: Anion Gap 8.2; BUN Creatinine Ratio 18.3; Calcium 9.4 mg/dL (8.5-10.1); Carbon Dioxide 32.4 mmol/L (21.0-32.0); Chloride 102 mmol/L (98-107); Estimated GFR (African America 33 (>=60 mL/min/1.73m^2); Estimated GFR (Non-African Ame 27 (>=60 mL/min/1.73m^2); Glucose 284 mg/dL (74-106); Potassium 3.6 mmol/L (3.5-5.1); Sodium 139 mmol/L (136-145)
[2024-04-22] MEDS: MORPHINE SULFATE 2 MG/ML SYRINGE IV (14:19)
--- NOTE | 2024-04-22 15:27 | SWNOTE1 ---
SW spoke to pt. Pt voiced she fell the same day she got home from [facility]. She stated she hit her butt more than her back. She said she called EMS and should have came to hospital that day, but did not. She voiced she will have to go back to rehab. She would like [facility] as first choice and [facility] as second choice. SW did reach out to [facility], they stated to send referral and will review, have to check bed status. SW to see if [facility] has openings. Pt's phsycian notes are not signed at this time and PT/OT have to evaluate as well.
--- NOTE | 2024-04-22 15:44 | SWNOTE1 ---
JIMMIE sent over case management report and diagnostic imaging to [facility].
--- NOTE | 2024-04-22 15:48 | SWNOTE1 ---
Important Message from Medicare reviewed and discussed with patient. Pt. verbalized understanding and signed the form. Original given to patient and copy placed in patient?s chart.
[2024-04-22] MEDS: CEFTAZIDIME 2,000 MG in 0.9 % SODIUM CHLORIDE 100 ML 200 MG IV (16:58)
[2024-04-22] MEDS: FUROSEMIDE 40 MG/4 ML VIAL IVP (16:59)
[2024-04-22] MEDS: 0.9 % SODIUM CHLORIDE 250 ML 10 ML IV (17:30)
[2024-04-22] MEDS: HYDROCODONE/ACET 5-325 MG TABLET 1 TAB PO (20:24)
[2024-04-22] MEDS: VANCOMYCIN HCL 1,250 MG in 0.9 % SODIUM CHLORIDE 250 ML 166.667 MG IV (20:24)
[2024-04-22] MEDS: ALPRAZOLAM 0.5 MG TABLET PO (20:30)
[2024-04-22] MEDS: MONTELUKAST SODIUM 10 MG TABLET PO (21:54)
[2024-04-22] MEDS: ATORVASTATIN CALCIUM 40 MG TABLET 80 MG PO (21:54)
[2024-04-22] MEDS: PANTOPRAZOLE SODIUM 40 MG TABLET.DR PO (21:54)
[2024-04-22] MEDS: HYDRALAZINE HCL 50 MG TABLET 100 MG PO (21:54)
[2024-04-22] MEDS: CARVEDILOL 25 MG TABLET PO (21:54)
[2024-04-22] MEDS: METOCLOPRAMIDE HCL 10 MG TABLET 5 MG PO (21:54)
[2024-04-22] MEDS: SUCRALFATE 1 GM TABLET PO (21:55)
[2024-04-22] MEDS: TEMAZEPAM 15 MG CAPSULE PO (21:55)
[2024-04-23] VITALS (14 sets, daily range): BP systolic 149–197; BP diastolic 57–85; PULSE 63–76; TEMP 36.4–36.7; O2SAT 86–93
[2024-04-23 05:08] LABS: Basophils Percent Auto 0.3 % (0.2-2.0); Eosinophils Absolute Auto 0.5 10^3/uL (0.0-0.7); Eosinophils Percent Auto 5.9 % (0.9-7.0); Hematocrit 29.6 % (36.0-48.0); Hemoglobin 9.2 g/dL (12.0-16.0); Immature Granulocytes Abs Auto 0.04 10^3/uL (0.00-0.03); Immature Granulocytes Pct Auto 0.5 % (0.0-0.5); Lymphocytes Absolute Auto 0.9 10^3/uL (1.2-3.8); Lymphocytes Percent Auto 11.9 % (20.5-60.0); Mean Corpuscular HGB Conc 31.1 g/dL (29.9-35.2); Mean Corpuscular Volume 96.4 fL (81.0-99.0); Mean Platelet Volume 10.1 fL (9.5-13.5); Monocytes Absolute Auto 0.9 10^3/uL (0.3-0.8); Monocytes Percent Auto 11.3 % (1.7-12.0); Neutrophils Absolute Auto 5.5 10^3/uL (1.4-6.5); Neutrophils Percent Auto 70.1 % (43.0-75.0); Platelet Count 251 10^3/uL (150-450); Red Blood Count 3.07 10^6/uL (4.20-5.40); Red Cell Distribution Width 12.1 % (11.0-15.0); White Blood Count 7.8 10^3/uL (4.0-11.0)
[2024-04-23] MEDS: HYDRALAZINE HCL 50 MG TABLET 100 MG PO ×3 (05:22→21:43)
[2024-04-23] MEDS: HYDROCODONE/ACET 5-325 MG TABLET 1 TAB PO (05:24)
[2024-04-23 05:32] LABS: Alanine Aminotransferase 12 U/L (14-59); Albumin Globulin Ratio 0.6; Albumin Level 2.4 g/dL (3.4-5.0); Alkaline Phosphatase 74 U/L (46-116); Anion Gap 8.5; Aspartate Amino Transferase 9 U/L (15-37); BUN Creatinine Ratio 16.2; Bilirubin Total 0.7 mg/dL (0.2-1.0); Calcium 9.2 mg/dL (8.5-10.1); Carbon Dioxide 34.1 mmol/L (21.0-32.0); Chloride 104 mmol/L (98-107); Estimated GFR (African America 32 (>=60 mL/min/1.73m^2); Estimated GFR (Non-African Ame 27 (>=60 mL/min/1.73m^2); Globulin 3.7 g/dL; Glucose 196 mg/dL (74-106); Magnesium 1.7 mg/dL (1.8-2.4); Potassium 3.6 mmol/L (3.5-5.1); Sodium 143 mmol/L (136-145); Total Protein 6.1 g/dL (6.4-8.2)
[2024-04-23 05:55] LABS: Troponin I High Sensitivity 146.2 pg/mL (4.0-51.3)
--- NOTE | 2024-04-23 06:42 | P.PN_ITS ---
Progress Note: Subjective Subjective Interval history: No complaints of chest pain this morning., Still her upper back pain for the fractures are located Exam Constitutional Vital Signs, click to edit/add: Last Vital Signs Temp 98.1 F 04/23/24 05:47 Pulse 70 04/23/24 05:47 Resp 18 04/23/24 05:47 BP 165/66 H 04/23/24 05:47 Pulse Ox 90 L 04/23/24 05:47 O2 Del Method Nasal Cannula 04/23/24 05:47 O2 Flow Rate 2 04/23/24 05:47 Documenting provider has reviewed patient's vital signs: yes Common normals: no apparent distress (Mild respiratory distress is improved) Chest Common normals: inspection of chest normal Respiratory Common normals: normal respiratory effort (Mild breast return distress is improved) Auscultation: rales (Minimal) and rhonchi Cardio Common normals: regular rate and regular rhythm Back & Pelvis Common normals: CVA tenderness (Bruising noted lumbar spine) Progress Note: Objective Labs Labs: Short CBC 04/22/24 04/23/24 Range/Units 13:48 04:54 WBC 9.1 7.8 (4.0-11.0) 10^3/uL Hgb 9.7 L 9.2 L (12.0-16.0) g/dL Hct 30.1 L 29.6 L (36.0-48.0) % Plt Count 257 251 (150-450) 10^3/uL BMP 04/22/24 04/23/24 13:48 04:54 Sodium 139 143 Potassium 3.6 3.6 Chloride 102 104 Carbon Dioxide 32.4 H 34.1 H BUN 33.0 H 30.0 H Creatinine 1.80 H 1.85 H Glucose 284 H 196 H Calcium 9.4 9.2 Liver Function 04/23/24 Range/Units 04:54 Total Bilirubin 0.7 (0.2-1.0) mg/dL AST 9 L (15-37) U/L ALT 12 L (14-59) U/L Alkaline Phosphatase 74 (46-116) U/L Albumin 2.4 L (3.4-5.0) g/dL Progress Note: A&P Assessment and Plan (1) Fall: (2) Anterior chest wall pain: (3) Lumbar transverse process fracture: (4) HTN (hypertension): Qualifiers: Hypertension type: primary hypertension Qualified Code(s): I10 - Essential (primary) hypertension Plan Admission findings: Uncontrolled hypertension, hypoxia with O2 sat of 90% on 2 L, CT scan with L2, 3, 4 transverse process fracture Acute combined congestive heart failure with mild peripheral edema but lung exam consistent with rales-continued diuresis today check on echo Transverse process fractures-physical therapy and pain control Iron deficiency anemia-monitor daily Bilateral pleural effusions likely related to the acute combined congestive heart failure-consider repeat CT scan Hypertension-continue with home medications Generalized anxiety disorder-continue with home medications Hypercholesterolemia continue with home medications GERD continue with home medications Diabetes mellitus-insulin sliding scale Insomnia-continue home medications Admission findings: Patient with transverse process fracture but more concerning to the acute combined congestive heart failure, medically necessary treatment will span 2 midnights. Inpatient status ? Urinary Catheter Management Urinary Catheter Management Pure Wick: Cath placed during this visit: yes Urethral indwelling: No Insertion date: 04/22/24 Insertion time: 14:45
--- NOTE | 2024-04-23 06:43 | ECG_ITS ---
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 Measurements Intervals [place] Rate: 58 P: 62 [place]: 162 QRS: 57 QRSD: 95 T: 34 QT: 443 QTc: 437 Interpretive Statements SINUS BRADYCARDIA NONSPECIFIC T-WAVE ABNORMALITY Compared to ECG 04/22/2024 13:50:41 T-wave abnormality now present ST (T wave) deviation no longer present Possible ischemia no longer present Electronically Signed On 04-24-2024 6:27:40 EST by CAROLINA MARTIN M.D.
--- NOTE | 2024-04-23 06:44 | CA_ITS ---
Patient Name: RIVKA TURNER MR#: [id number] : 1945 Exam Date: 04/23/2024 Ordering Doctor: DR Davy Underwood . ECHOCARDIOGRAM REPORT PROCEDURE: CA ECHO DOPPLER COMPLETE INDICATIONS: elevated trop and bnp, mi, cardiac stent, hypertension, diabetes COMPARISON: None. DESCRIPTION: COMPLETE ECHOCARDIOGRAM Real-time transthoracic echocardiography with 2D, M-mode, spectral and color flow Doppler performed. QUALITY: LEFT VENTRICLE: Normal chamber size. Mild concentric left ventricular hypertrophy. Normal systolic function. LV EF: Normal left ventricular ejection fraction, (60-65%). DIASTOLIC: Grade II diastolic dysfunction. Doppler studies are consistent with elevated filling pressures. ATRIAL SEPTUM: LEFT ATRIUM: Moderate dilatation. RIGHT ATRIUM: Normal chamber size. RIGHT VENTRICLE: Normal chamber size. Normal systolic function. TRICUSPID VALVE: Normal mobility and thickness. No stenosis with trivial regurgitation. Unable to calculate right-sided pressures due to lack of measurable tricuspid regurgitation. MITRAL VALVE: Normal mobility and thickness. No evidence of mitral valve stenosis. Mild mitral annular calcification. Trivial mitral regurgitation. AORTIC VALVE: Normal trileaflet appearance. Mildly calcified aortic valve. Normal leaflet mobility. No evidence of aortic valve stenosis. No aortic regurgitation. AORTIC ROOT: Normal diameter and appearance. PULMONIC VALVE: Not well visualized. No stenosis. No regurgitation. PERICARDIUM: No evidence of pericardial effusion. IVC: IVC is mildly dilated, does not fully collapse. PLEURA: CONCLUSION: 1. Mild concentric left ventricular hypertrophy with normal systolic function. Estimated LVEF is 60-65%. 2. Normal right ventricular size and systolic function. 3. Grade 2 diastolic dysfunction. Doppler studies are consistent with elevated filling pressures. 4. No significant valvular dysfunction. 5. Unable to assess right-sided pressures due to lack of measurable tricuspid regurgitation. 6. No pericardial effusion. Adult Echocardiography Procedure Report Left Ventricle LVEDD (3.7 - 5.6 cm): 4.33 cm LVESD (2.2 - 4.0 cm): 2.62 cm LVIVS thickness (0.6 - 1.2 cm): 1.30 cm LVPW thickness (0.5 - 1.0 cm): 1.32 cm e': 0.06 m/s E - e': 18.70 LVOT Max Gradient: 3.28 mm[Hg] LVOT Area (cm2): 0.91 m/s Peak Velocity (LVOT): 0.91 m/s Mean Velocity (LVOT): 0.62 m/s LVOT Diameter 2.15 cm Left Atrium LA Volume Index (2D A2C): 43.50 ml/m2 Left Atrium Systolic Dimension: 4.09 cm Mitral Valve MV E to A Ratio: 1.51 Mitral Valve A-Wave Peak Velocity: 0.73 m/s Mitral Valve E-Wave Peak Velocity: 1.10 m/s Right Ventricle Aorta AO Root Diam: 3.29 cm Aortic Valve AoV Area (Peak Hood): 2.54 cm2, 2.54 cm2 AoV Area (VTI): 3.09 cm2, 3.09 cm2 Peak Velocity(Antegrade Flow): 1.29 m/s Peak Gradient(Antegrade Flow): 6.69 mm[Hg] Mean Velocity(Antegrade Flow): 0.80 m/s Mean Gradient(Antegrade Flow): 3.03 mm[Hg] Velocity Time Integral: 29.09 cm Tricuspid Valve Pulmonic Valve Mean Gradient: 2.44 mm[Hg] Mean Velocity: 0.75 m/s Peak Velocity: 1.05 m/s, 1.00 m/s Peak Gradient: 4.01 mm[Hg], 4.38 mm[Hg] Right Atrium Right Atrium Systolic Pressure: 41.63 ml, 41.63 ml Dictated by: Obed Lucio M.D. on 04/23/2024 at 17:42 Approved by: Obed Lucio M.D. on 04/23/2024 at 17:46
[2024-04-23 07:03] LABS: Troponin I High Sensitivity 135.7 pg/mL (4.0-51.3)
[2024-04-23 08:10] LABS: Glucometer 214 mg/dL (74-106)
--- NOTE | 2024-04-23 08:41 | CM.NOTE ---
Rounds made with Dr. Underwood, discussed findings and plan of care with pt. Dr. Underwood discussed with pt this is non-surgical and she would be WBAT. PT and OT will evaluate pt for discharge planning. Pt will have echo this AM, elevated troponin. Pt is also requiring oxygen at this time. Pt denies any CP this AM on rounds.
[2024-04-23 08:56] LABS: Troponin I High Sensitivity 128.7 pg/mL (4.0-51.3)
--- NOTE | 2024-04-23 09:12 | SWNOTE1 ---
SW reached out to [facility] to see if they have bed open for patient, SW waiting to hear back.
[2024-04-23] MEDS: CARVEDILOL 25 MG TABLET PO ×2 (10:02→21:43)
[2024-04-23] MEDS: CHOLECALCIFEROL (VITAMIN D3) 25 MCG/1,000 UNITS TABLET PO (10:02)
[2024-04-23] MEDS: FAMOTIDINE 20 MG TABLET 40 MG PO (10:03)
[2024-04-23] MEDS: PAROXETINE HCL 20 MG TABLET 40 MG PO (10:03)
[2024-04-23] MEDS: BUPROPION HCL 150 MG XL TABLET 24H PO (10:03)
[2024-04-23] MEDS: AMLODIPINE BESYLATE 5 MG TABLET 10 MG PO (10:04)
[2024-04-23] MEDS: SITAGLIPTIN PHOSPHATE 50 MG TABLET 25 MG PO (10:04)
[2024-04-23] MEDS: ASPIRIN 81 MG TABLET.DR PO (10:04)
[2024-04-23] MEDS: PANTOPRAZOLE SODIUM 40 MG TABLET.DR PO ×2 (10:05→21:43)
--- NOTE | 2024-04-23 10:23 | SWNOTE1 ---
[facility] and [facility] do not have beds. SW spoke to pt in regards to other facilities. She voiced she has not been anywhere else. She stated her daughter lives in [place] and will likely want her close. SW did show pt Medicare.gov star rating list. Pt is not sure, but is open to wherever. SW asked permission to call her daughter, pt in agreement. SW called Mandy, pt's daughter, and had to leave message. Pt is alright with JIMMIE called [facility] ([facility] to see if they have openings and to send referral. Referral sent to [facility]. Referral included face sheet, ED note, H&P, provider notes, case management report, nursing notes, diagnostic imaging, med list, and PT/OT notes.
[2024-04-23] MEDS: BUMETANIDE 10 MG in 0.9 % SODIUM CHLORIDE 160 ML 20 MG IV (10:41)
[2024-04-23] MEDS: ACETAMINOPHEN 500 MG TABLET 1000 MG PO (10:42)
[2024-04-23] MEDS: TRAMADOL HCL 50 MG TABLET PO (10:42)
[2024-04-23 10:58] LABS: Glucometer 384 mg/dL (74-106)
[2024-04-23] MEDS: FERROUS SULFATE 325 MG TABLET PO ×2 (11:06→21:44)
[2024-04-23] MEDS: INSULIN ASPART 300 UNIT/3 ML PEN SUBQ (11:07)
--- NOTE | 2024-04-23 11:45 | SWNOTE1 ---
SW called daughter again and updated her on discharge plans. SW let daughter know that SW did just receive an email that [facility] in [place] did just have a bed open up. Daughter would like that as it is on her way home from work from [place] and she lives in [place]. SW did tell her that [facility] and [facility] both under [facility]. JIMMIE also spoke with her about Assisted Living. Daughter voiced they have been talking about it and pt is agreeable. They are looking in to [facility] and [facility]. She does not want her to go to [facility] due to bad experience at [facility]. Daughter will continue to pursue AL. SW to speak with pt about [facility].
--- NOTE | 2024-04-23 13:36 | SWNOTE1 ---
SW received email from Paula at [facility] and she stated pt's insurance is out of network due to it being a dual plan. SW called and left message for daughter. SW spoke to pt as well and she is alright with anything. JIMMIE let pt know that SW will have [facility] start precert that way we do not delay discharge anymore. She is in agreement. JIMMIE messaged Nubia at [facility]. JIMMIE sent her PT/OT and she is starting precert.
--- NOTE | 2024-04-23 13:43 | SWNOTE1 ---
SW did not place note previously. SW did speak with pt about [facility] and she did agree. Referral was sent to [facility], but unfortunately they were out of network. See previous note. [facility] started precert.
[2024-04-23 13:47] LABS: Troponin I High Sensitivity 110.3 pg/mL (4.0-51.3)
--- NOTE | 2024-04-23 14:27 | SWNOTE1 ---
SW spoke to daughter and she is alright with [facility] as it is right beside where she lives. Precert has been started 04/23/24.
[2024-04-23] MEDS: CEFTAZIDIME 2,000 MG in 0.9 % SODIUM CHLORIDE 100 ML 200 MG IV (16:24)
[2024-04-23 16:30] LABS: Glucometer 104 mg/dL (74-106)
[2024-04-23] MEDS: HYDRALAZINE HCL 20 MG/ML VIAL 10 MG IVP (17:15)
--- NOTE | 2024-04-23 17:20 | ECG_ITS ---
[facility] Test Date: 2024-04-23 Pat Name: RIVKA TURNER Department: Room: 2031 Gender: Female Scientific Diver: : 1945 Requested By: SID WOODALL Order Number: [id number] Reading MD: CAROLINA MARTIN M.D. Measurements Intervals [place] Rate: 76 P: 65 MD: 158 QRS: 17 QRSD: 95 T: 63 QT: 399 QTc: 449 Interpretive Statements SINUS RHYTHM WITH FREQUENT VENTRICULAR PREMATURE COMPLEXES NONSPECIFIC T-WAVE ABNORMALITY ABNORMAL ECG Compared to ECG 04/23/2024 11:37:30 Ventricular premature complex(es) now present Sinus bradycardia no longer present T-wave abnormality still present Electronically Signed On 04-24-2024 6:41:20 EST by CAROLINA MARTIN M.D.
[2024-04-23] MEDS: NITROGLYCERIN 0.4 MG BOTTLE SL ×2 (17:44→17:56)
[2024-04-23] MEDS: ALPRAZOLAM 0.5 MG TABLET PO (18:04)
[2024-04-23 20:07] LABS: Glucometer 205 mg/dL (74-106)
[2024-04-23] MEDS: KETOROLAC TROMETHAMINE 30 MG/ML VIAL 15 MG IVP (20:45)
[2024-04-23] MEDS: DEXAMETHASONE SOD PHOS 20 MG/5 ML VIAL 6 MG IV (20:46)
[2024-04-23 21:04] LABS: Troponin I High Sensitivity 110.1 pg/mL (4.0-51.3)
[2024-04-23] MEDS: SUCRALFATE 1 GM TABLET PO (21:43)
[2024-04-23] MEDS: TEMAZEPAM 15 MG CAPSULE PO (21:43)
[2024-04-23] MEDS: MONTELUKAST SODIUM 10 MG TABLET PO (21:43)
[2024-04-23] MEDS: METOCLOPRAMIDE HCL 10 MG TABLET 5 MG PO (21:43)
[2024-04-23] MEDS: ATORVASTATIN CALCIUM 40 MG TABLET 80 MG PO (21:44)
[2024-04-24] MEDS: HYDRALAZINE HCL 50 MG TABLET 100 MG PO ×2 (05:19→14:42)
[2024-04-24 05:27] LABS: Hematocrit 30.6 % (36.0-48.0); Mean Corpuscular HGB Conc 32.7 g/dL (29.9-35.2); Mean Corpuscular Hemoglobin 30.7 pg (26.7-34.0); Mean Corpuscular Volume 93.9 fL (81.0-99.0); Mean Platelet Volume 10.4 fL (9.5-13.5); Platelet Count 254 10^3/uL (150-450); Red Blood Count 3.26 10^6/uL (4.20-5.40); Red Cell Distribution Width 11.8 % (11.0-15.0); White Blood Count 7.6 10^3/uL (4.0-11.0)
[2024-04-24 05:35] VITALS: BP 136/71; PULSE 66; TEMP 36.4; O2SAT 93
[2024-04-24 05:51] LABS: Alanine Aminotransferase 11 U/L (14-59); Albumin Globulin Ratio 0.6; Albumin Level 2.2 g/dL (3.4-5.0); Alkaline Phosphatase 75 U/L (46-116); Anion Gap 11.4; Aspartate Amino Transferase 11 U/L (15-37); Bilirubin Total 0.7 mg/dL (0.2-1.0); Calcium 9.3 mg/dL (8.5-10.1); Carbon Dioxide 31.4 mmol/L (21.0-32.0); Chloride 99 mmol/L (98-107); Estimated GFR (African America 26 (>=60 mL/min/1.73m^2); Estimated GFR (Non-African Ame 22 (>=60 mL/min/1.73m^2); Globulin 3.9 g/dL; Glucose 331 mg/dL (74-106); Magnesium 1.7 mg/dL (1.8-2.4); Potassium 3.8 mmol/L (3.5-5.1); Sodium 138 mmol/L (136-145); Total Protein 6.1 g/dL (6.4-8.2)
--- NOTE | 2024-04-24 06:42 | P.PN_ITS ---
Progress Note: Subjective Subjective Interval history: No complaints of chest pain this morning., Still her upper back pain for the fractures are located Exam Constitutional Vital Signs, click to edit/add: Last Vital Signs Temp 97.5 F L 04/24/24 05:35 Pulse 66 04/24/24 05:35 Resp 16 04/24/24 05:35 BP 136/71 04/24/24 05:35 Pulse Ox 93 L 04/24/24 05:35 O2 Del Method Nasal Cannula 04/24/24 05:35 O2 Flow Rate 2 04/24/24 05:35 Progress Note: Objective Labs Labs: Short CBC 04/24/24 Range/Units 04:58 WBC 7.6 (4.0-11.0) 10^3/uL Hgb 10.0 L (12.0-16.0) g/dL Hct 30.6 L (36.0-48.0) % Plt Count 254 (150-450) 10^3/uL Progress Note: A&P Assessment and Plan (1) Fall: (2) Anterior chest wall pain: (3) Lumbar transverse process fracture: (4) HTN (hypertension): Qualifiers: Hypertension type: primary hypertension Qualified Code(s): I10 - [place] tial (primary) hypertension Plan Admission findings: Uncontrolled hypertension, hypoxia with O2 sat of 90% on 2 L, CT scan with L2, 3, 4 transverse process fracture Acute combined congestive heart failure with mild peripheral edema but lung exam consistent with rales-continued diuresis today check on echo Transverse process fractures-physical therapy and pain control Iron deficiency anemia-monitor daily Bilateral pleural effusions likely related to the acute combined congestive heart failure-consider repeat CT scan Hypertension-continue with home medications Generalized anxiety disorder-continue with home medications Hypercholesterolemia continue with home medications GERD continue with home medications Diabetes mellitus-insulin sliding scale Insomnia-continue home medications Admission findings: Patient with transverse process fracture but more concerning to the acute combined congestive heart failure, medically necessary treatment will span 2 midnights. Inpatient status ? Urinary Catheter Management Urinary Catheter Management Pure Wick: Cath placed during this visit: yes Urethral indwelling: No Insertion date: 04/22/24 Insertion time: 14:45
[2024-04-24 06:44] LABS: Segmented Neut Absolute Manual 7.22 10^3/uL (1.4-6.5); Troponin I High Sensitivity 72.9 pg/mL (4.0-51.3)
[2024-04-24 06:45] LABS: Monocytes Absolute Manual 0.07 10^3/uL (0.30-0.80); Toxic Granulation 1+
--- NOTE | 2024-04-24 08:56 | CM.NOTE ---
Rounds made with Dr. Underwood, discussed with pt about cardiology consult for further recommendations. Pt will discharge to [facility] for skilled therapy when medically stable.
[2024-04-24 09:00] VITALS: BP 155/62; PULSE 70; TEMP 36.4; O2SAT 94
--- NOTE | 2024-04-24 09:30 | SWNOTE1 ---
JIMMIE had message from Karlie at [facility] and insurance is requesting MD note from within 24 hours. JIMMIE sent MD note from 04/23/24 to [facility].
[2024-04-24] MEDS: SITAGLIPTIN PHOSPHATE 50 MG TABLET PO (09:34)
[2024-04-24] MEDS: PAROXETINE HCL 20 MG TABLET 40 MG PO (09:34)
[2024-04-24] MEDS: ISOSORBIDE MONONITRATE 30 MG TAB.ER.24H PO (09:34)
[2024-04-24] MEDS: CHOLECALCIFEROL (VITAMIN D3) 25 MCG/1,000 UNITS TABLET PO (09:35)
[2024-04-24] MEDS: ASPIRIN 81 MG TABLET.DR PO (09:35)
[2024-04-24] MEDS: CARVEDILOL 25 MG TABLET PO (09:35)
[2024-04-24] MEDS: AMLODIPINE BESYLATE 5 MG TABLET 10 MG PO (09:35)
[2024-04-24] MEDS: FERROUS SULFATE 325 MG TABLET PO (09:35)
[2024-04-24] MEDS: ACETAMINOPHEN 500 MG TABLET 1000 MG PO ×2 (09:35→15:46)
[2024-04-24] MEDS: PANTOPRAZOLE SODIUM 40 MG TABLET.DR PO (09:36)
[2024-04-24] MEDS: FAMOTIDINE 20 MG TABLET 40 MG PO (09:37)
[2024-04-24] MEDS: BUPROPION HCL 150 MG XL TABLET 24H PO (09:38)
[2024-04-24] MEDS: VANCOMYCIN HCL 1,250 MG in 0.9 % SODIUM CHLORIDE 250 ML 167 MG IV (09:39)
[2024-04-24] MEDS: 0.9 % SODIUM CHLORIDE 250 ML 10 ML IV (09:40)
[2024-04-24] MEDS: INSULIN ASPART 300 UNIT/3 ML PEN SUBQ ×2 (09:40→11:42)
[2024-04-24] MEDS: TRAMADOL HCL 50 MG TABLET PO (11:41)
[2024-04-24 11:46] LABS: Glucometer 513 mg/dL (74-106)
--- NOTE | 2024-04-24 11:49 | OT.DAILY ---
Occupational Therapy Daily Note OT Inpatient Daily Visit Note Start: 04/23/24 10:32 Freq: Status: Active Protocol: Document 04/24/24 11:40 [id number] (Rec: 04/24/24 11:48 [id number]) OT Visit Details Time In/Time Out Time In 11:20 Time Out 11:40 OT Treatment Plan Subjective Subjective Pt awake and alert, answering questions appropriately. Pt reports she is feeling weak and fatigued today. Agreeable to participate at this time. Objective Objective Pt is agreeable to transfer to chair for lunch. Supine to sit on EOB Min A with tactile cues for LB mobility. Required short break due to feeling lightheaded and dizzy. Min A with 2-4 VCs Pt able to stand to walker. 3 -5 cues to maintain posture and weight distribution. Good ambulation to chair, no LOB. Good safety techniques when sitting. Once seated Pt reports she remains slightly lightheaded. Assessment Assessment Pt tolerated treatment well. Able to maintain O2 on 2L NC. Denies SOB following session or any pain. Pt benefits from breaks and extended time due to generalized weakness. Continue OT POC. OT Leaf Tinner Timed Codes Therapeutic activity 20 minutes (minutes) Therapeutic activity 1 units
--- NOTE | 2024-04-24 11:56 | PT.DAILY ---
Physical Therapy Daily Note PT Daily Note/Assess Start: 04/24/24 11:54 Freq: Status: Active Protocol: Document 04/24/24 11:45 TARAS (Rec: 04/24/24 11:55 [id number]) Visit Not Completed Visit Not Completed Visit Not Completed Other Due to: Other Reason Visit Attempted patient 2x, at 9:50 and then 11:45. Each time Not Completed patient was with another provider. Patient was up in chair on second attempt. Physical Therapy Daily Note/Assessment Time In/Time Out Time In 11:45 Time Out 11:45 GG. Functional Abilities and Goals-Complete for Swing Bed Patients Only [id number]. Self-Care [id number]. Mobility
[2024-04-24 12:04] LABS: Bilirubin Urine NEGATIVE (NEGATIVE); Blood Urine NEGATIVE (NEGATIVE); Clarity Urine CLEAR (CLEAR); Color Urine LT. YELLOW (YELLOW); Glucose Urine UA NEGATIVE (NEGATIVE); Ketones Urine NEGATIVE (NEGATIVE); Leukocyte Esterase Urine NEGATIVE (NEGATIVE); Nitrite Urine NEGATIVE (NEGATIVE); Protein Urine 100 mg/dL (NEG/TRACE); Urobilinogen Urine 0.2 EU/dL (0.2-1.0); pH Urine 5.5 (5.0-9.0)
[2024-04-24 12:05] VITALS: O2SAT 95
[2024-04-24 12:19] LABS: Urine Microscopic Indicated YES
[2024-04-24 12:24] LABS: Bacteria Urine NONE SEEN #/HPF (NONE SEEN); Mucus Urine NONE SEEN (NONE SEEN); RBC Urine NONE SEEN #/HPF (0-2); Squamous Epithelial Cell Urine FEW #/LPF (NONE/RARE); WBC Urine NONE SEEN #/HPF (NONE SEEN)
[2024-04-24 12:25] LABS: Urine Culture Indicated NO
--- NOTE | 2024-04-24 12:52 | SWNOTE1 ---
SW received message from Karlie at [facility] and pt is approved to go skilled. SW let doctor and nurse know.
--- NOTE | 2024-04-24 12:59 | SWNOTE1 ---
SW called and set trips up for 4:10-4:40. SW notified nurse, pt, and left message for pt's daughter. SW completed HENS. SW will send orders once completed. Pt is going skilled to [facility].
--- NOTE | 2024-04-24 13:04 | SWNOTE1 ---
JIMMIE faxed over dc med rec, updated labs and vitals to [facility].
--- NOTE | 2024-04-24 14:33 | SWNOTE1 ---
SW was able to speak with daughter to let her know time of discharge today.
[2024-04-24 14:34] VITALS: BP 144/55; PULSE 64; TEMP 36.4; O2SAT 95
--- NOTE | 2024-04-24 16:31 | PC.NURSE ---
report called to [facility], all questions answered
--- NOTE | 2024-04-24 19:29 | P.DS_ITS ---
DS: Providers Provider Date of admission: 04/22/24 14:36 Primary care physician: Amador Lopez MD Consults: 04/22/24 14:57 Consult to Pharmacy Routine Consulting Provider: Reason for consultation: Please Ina me when Med Rec is Updated Has provider been notified: No Occupational Therapy Eval and Treat Routine Reason for consultation: Only if needed for Rehab Has provider been notified: No Physical Therapy Eval and Treat Routine Reason for consultation: Eval and Treat Has provider been notified: No 04/24/24 06:41 Consult to Cardiology Routine Reason for consultation: elevated trop Has provider been notified: No DS: Diagnosis Discharge Diagnosis (1) Fall: (2) Anterior chest wall pain: (3) Lumbar transverse process fracture: (4) HTN (hypertension): Qualifiers: Hypertension type: primary hypertension Qualified Code(s): I10 - Essential (primary) hypertension Plan Admission findings: Uncontrolled hypertension, hypoxia with O2 sat of 90% on 2 L, CT scan with L2, 3, 4 transverse process fracture Acute combined congestive heart failure with mild peripheral edema but lung exam consistent with rales-continued diuresis today check on echo Transverse process fractures-physical therapy and pain control Iron deficiency anemia-monitor daily Bilateral pleural effusions likely related to the acute combined congestive heart failure-consider repeat CT scan Hypertension-continue with home medications Generalized anxiety disorder-continue with home medications Hypercholesterolemia continue with home medications GERD continue with home medications Diabetes mellitus-insulin sliding scale Insomnia-continue home medications Admission findings: Patient with transverse process fracture but more concerning to the acute combined congestive heart failure, medically necessary treatment will span 2 midnights. Inpatient status ? DS: Summary Hospital Course Hospital Course: Patient was seen and evaluated in the emergency room secondary to pain after a fall. Found to have transverse process fractures x 3. Pain is fairly well- controlled she also has some anterior chest pain. Troponins were checked and they were slightly elevated, blood pressure also elevated I do believe is more related to her blood pressure she had another episode with a significant elevation in her blood pressure troponins were again slightly elevated at that time but have been improving since that time, medications were adjusted and blood pressure was stabilized she no longer has the chest pain. She does have however a persistent cough and possible nosocomial pneumonia so should be discharged to rehab for treatment of nosocomial pneumonia, NSTEMI type II secondary to uncontrolled hypertension, currently controlled, patient medically stable, medications see list, follow-up with PCP post discharge from rehab Status at Discharge Overall status at discharge: patient is not back to baseline Time Spent with Patient Time attestation: Total time spent providing and/or coordinating discharge services: Time spent: greater than 30 minutes Exam Constitutional Vital Signs, click to edit/add: Last Vital Signs Temp 97.6 F 04/24/24 14:34 Pulse 64 04/24/24 14:34 Resp 16 04/24/24 14:34 BP 144/55 H 04/24/24 14:34 Pulse Ox 95 04/24/24 14:34 O2 Del Method Nasal Cannula 04/24/24 14:34 O2 Flow Rate 2 04/24/24 14:34 Documenting provider has reviewed patient's vital signs: yes Common normals: no apparent distress (Mild respiratory distress is improved) Chest Common normals: inspection of chest normal Respiratory Common normals: normal respiratory effort (Mild breast return distress is improved) and no use of accessory muscles Auscultation: rhonchi (Minimal); no rales (Resolved) Cardio Common normals: regular rate, regular rhythm and no murmurs Back & Pelvis Common normals: CVA tenderness (Bruising noted lumbar spine) DS: Data Data Completed and Pending Labs on day of discharge: Labs from last 24 hours 04/24/24 04/24/24 04/24/24 11:45 11:40 04:58 WBC 7.6 RBC 3.26 L Hgb 10.0 L Hct 30.6 L MCV 93.9 MCH 30.7 MCHC 32.7 RDW 11.8 Plt Count 254 MPV 10.4 Seg Neuts % (Manual) 95.0 H Lymphocytes % (Manual) 4.0 L Monocytes % (Manual) 1.0 L Eosinophils % (Manual) 0.0 L Basophils % (Manual) 0.0 L Neutrophils # (Manual) 7.22 H Lymphocytes # (Manual) 0.30 L Monocytes # (Manual) 0.07 L Eosinophils # (Manual) 0.00 Basophils # (Manual) 0.00 Toxic Granulation 1+ Sodium 138 Potassium 3.8 Chloride 99 Carbon Dioxide 31.4 Anion Gap 11.4 BUN 35.0 H Creatinine 2.19 H Est GFR ( Amer) 26 L Est GFR (Non-Af Amer) 22 L BUN/Creatinine Ratio 16.0 Glucose 331 H Calcium 9.3 Magnesium 1.7 L Total Bilirubin 0.7 AST 11 L ALT 11 L Alkaline Phosphatase 75 Troponin I High Sens 72.9 H* NT-Pro-B Natriuret Pep 6395.0 H* Total Protein 6.1 L Albumin 2.2 L Globulin 3.9 Albumin/Globulin Ratio 0.6 Urine Color Lt. yellow Urine Clarity Clear Urine pH 5.5 Ur Specific [place] 1.020 Urine Protein 100 A Urine Glucose (UA) Negative Urine Ketones Negative Urine Occult Blood Negative Urine Nitrite Negative Urine Bilirubin Negative Urine Urobilinogen 0.2 Ur Leukocyte Esterase Negative Urine RBC None seen Urine WBC None seen Ur Squamous Epith Cells Few A Urine Bacteria None seen Urine Mucus None seen Urine Yeast Seen A Ur Culture Indicated? No POC Glucose 513 H* 04/23/24 04/23/24 04/23/24 23:45 20:29 20:06 WBC RBC Hgb Hct MCV MCH MCHC RDW Plt Count MPV Seg Neuts % (Manual) Lymphocytes % (Manual) Monocytes % (Manual) Eosinophils % (Manual) Basophils % (Manual) Neutrophils # (Manual) Lymphocytes # (Manual) Monocytes # (Manual) Eosinophils # (Manual) Basophils # (Manual) Toxic Granulation Sodium Potassium Chloride Carbon Dioxide Anion Gap BUN Creatinine Est GFR ( Amer) Est GFR (Non-Af Amer) BUN/Creatinine Ratio Glucose Calcium Magnesium Total Bilirubin AST ALT Alkaline Phosphatase Troponin I High Sens 95.0 H* 110.1 H* NT-Pro-B Natriuret Pep Total Protein Albumin Globulin Albumin/Globulin Ratio Urine Color Urine Clarity Urine pH Ur Specific [place] Urine Protein Urine Glucose (UA) Urine Ketones Urine Occult Blood Urine Nitrite Urine Bilirubin Urine Urobilinogen Ur Leukocyte Esterase Urine RBC Urine WBC Ur Squamous Epith Cells Urine Bacteria Urine Mucus Urine Yeast Ur Culture Indicated? POC Glucose 205 H Discharge Plan Discharge Disposition: Xfer SNF Condition: Fair Discharge Medications: New isosorbide mononitrate 30 mg Tablet Extended Release 24 Hr 30 mg PO QD Qty: 30 0RF cefdinir 300 mg capsule 600 mg PO DAILY Qty: 20 0RF clindamycin HCl 300 mg capsule 300 mg PO Q6H 10 Days Qty: 40 0RF Continued furosemide 20 mg tablet 20 mg PO DAILY amlodipine 10 mg tablet 10 mg PO DAILY atorvastatin 80 mg tablet 80 mg PO .QHS bupropion HCl 150 mg tablet extended release 24 hr 150 mg PO DAILY cholecalciferol (vitamin D3) 25 mcg (1,000 unit) tablet 25 mcg PO DAILY famotidine 40 mg tablet 40 mg PO DAILY hydralazine 100 mg tablet 100 mg PO TID montelukast 10 mg tablet 10 mg PO .QHS nystatin [Klayesta] 100,000 unit/gram powder 1 applic TOPICAL TID PRN (Reason: rash) pantoprazole 40 mg tablet,delayed release (DR/EC) 40 mg PO BID paroxetine HCl 40 mg tablet 40 mg PO DAILY Januvia 25 mg tablet 25 mg PO DAILY sucralfate 1 gram tablet 1 g PO .QHS carvedilol 25 mg tablet 25 mg PO BID fluticasone propionate 50 mcg/actuation spray,suspension 2 spray INTRANASAL DAILY PRN (Reason: nasal congestion) metoclopramide HCl 5 mg tablet 5 mg PO .hs aspirin [Adult Aspirin Regimen] 81 mg tablet,delayed release (DR/EC) 81 mg PO DAILY hydrocodone-acetaminophen 5-325 mg tablet 1 tab PO Q8H PRN (Reason: pain (scale score 7-10)) Qty: 90 0RF alprazolam 0.5 mg tablet 0.5 mg PO TID PRN (Reason: anxiety) Qty: 90 0RF temazepam 15 mg capsule 15 mg PO .QHS Qty: 30 0RF Print Language: Lao Director Of Counseling/Gastroenterology Physician Instructions[facility] Forms: Portal Instructions Discharge Date/Time: 04/24/24 16:37 Discharge Location: [facility]
--- NOTE | 2024-04-25 09:11 | SWNOTE1 ---
JIMMIE sent dc summary to Lizz at [facility] for continuity of care.
== END 2024-04-24 16:37 | DRG 280 ==
LOC: ER 13:28 → MS 14:39
PROVIDERS: Admitting Provider Family Medicine; Emergency Provider Emergency Medicine; PCP Family Medicine; Visit Provider Family Medicine
DX: I11.0 Hypertensive heart disease with heart failure (principal); I50.41 Acute combined systolic (congestive) and diastolic (congestive) heart failure; I21.A1 Myocardial infarction type 2; J18.9 Pneumonia, unspecified organism; S32.029A Unspecified fracture of second lumbar vertebra, initial encounter for closed fracture; S32.039A Unspecified fracture of third lumbar vertebra, initial encounter for closed fracture; S32.049A Unspecified fracture of fourth lumbar vertebra, initial encounter for closed fracture; Y95 Nosocomial condition; F41.1 Generalized anxiety disorder; E78.00 Pure hypercholesterolemia, unspecified; K21.9 Gastro-esophageal reflux disease without esophagitis; G47.00 Insomnia, unspecified; R07.89 Other chest pain; E11.9 Type 2 diabetes mellitus without complications; I25.10 Atherosclerotic heart disease of native coronary artery without angina pectoris; I25.2 Old myocardial infarction; W19.XXXA Unspecified fall, initial encounter; Y92.008 Other place in unspecified non-institutional (private) residence as the place of occurrence of the external cause; Z79.899 Other long term (current) drug therapy; Z79.82 Long term (current) use of aspirin; Z79.84 Long term (current) use of oral hypoglycemic drugs; Z88.8 Allergy status to other drugs, medicaments and biological substances; Z91.041 Radiographic dye allergy status; Z88.0 Allergy status to penicillin; Z86.73 Personal history of transient ischemic attack (TIA), and cerebral infarction without residual deficits
CPT/HCPCS: 36415; 71250; 72128; 72131; 80048; 80053; 81001; 82948; 83735; 83880; 84484; 85007; 85025; 85027; 93005; 93306; 94667; 94668; 94761; 96374; 97162; 97165; 97530; 99285; G0328; J0360; J0713; J1100; J1885; J1940; J2270; J3370

== ENCOUNTER 2024-12-12 17:58 | Inpatient (IN) | payer MEDICARE, MEDICAID, SELFPAY ==
--- OUTSIDE RECORDS SUMMARY | 2024-11-26 16:15 | XMS_ITS | Encounter Summary ---
Author Organization [facility] Address [id number] [address] [place] [address] Care Team Providers Care Warehouse Order Picker Name Role Phone Amador Abdalla MD Primary Care Provider [phone] Reason for Referral * Misc (Routine) - Pending ReviewSpecialtyDiagnoses / ProceduresReferred By ContactReferred To Contact Procedures Adult diet Yasmin Goodrich MD [address] [place] [address] Phone: tel: fax: Referral IDStatusReasonStart DateExpiration DateVisits RequestedVisits [id number]/ * Occupational Therapy (Routine) - Pending ReviewSpecialtyDiagnoses / Procedures Referred By ContactReferred To ContactOccupational Therapy Diagnoses Closed fracture of right hip, initial encounter ([facility] Yasmin Goodrich MD [address] [place] [address] Phone: tel: fax: Referral IDStatusReasonStart DateExpiration DateVisits RequestedVisits [id number] Review Specialty Services Required / * Physical Therapy (Routine) - Pending ReviewSpecialtyDiagnoses / Procedures Referred By ContactReferred To ContactRehabilitation Diagnoses Closed fracture of right hip, initial encounter ([facility]) Yasmin Goodrich MD [address] [place] [address] Phone: tel: fax: Referral IDStatusReasonStart DateExpiration DateVisits RequestedVisits [id number] Review Specialty Services Required / * Consultation (Routine) - Pending ReviewSpecialtyDiagnoses / ProceduresReferred By ContactReferred To Contact Diagnoses Closed fracture of right hip, initial encounter ([facility]) Type 2 diabetes mellitus with stage 3b chronic kidney disease, with long-term current use of insulin ([facility]) Yasmin Goodrich MD [address] [place] [address] Phone: tel: fax: Referral IDStatusReasonStart DateExpiration DateVisits RequestedVisits [id number]/ Reason for Visit * ReasonCommentsFall * Auth/CertSpecialtyDiagnoses / ProceduresReferred By ContactReferred To Contact Diagnoses Pre-op exam Closed fracture of right hip, initial encounter ([facility]) Gonzalo Rolle MD [address] [place] [address] Phone: tel: fax: Referral IDStatusReasonStart DateExpiration DateVisits RequestedVisits [id number] Encounter Details DateTypeDepartmentCare Team (Latest Contact Info)Undsthevgdg50/08/2025 4:15 PM EDT - 12/01/2024 3:42 PM EDTHospital Encounter [facility] [address] [place] [address] Gian Green DO [address] [place] [address] Gonzalo Rolle MD [address] [place] [address] Yasmin Goodrich MD [address] [place] [address] Closed fracture of right hip, initial encounter ([facility]) (Primary Dx); Type 2 diabetes mellitus with stage 3b chronic kidney disease, with long-term current use of insulin ([facility]) Discharge Disposition: Fpc Facility-Medicare Cert Social History Tobacco UseTypesPacks/DayYears UsedDateSmoking Tobacco: NeverSmokeless Tobacco: Never Tobacco Cessation:Counseling Given: Not Answered Alcohol UseStandard Drinks/WeekCommentsNot Currently0 (1 standard drink = 0.6 oz pure alcohol)[facility] UtilitiesAnswerDate RecordedIn the past 12 months has the [employer], gas, oil, or water [employer] threatened to shut off services in your home?No11/26/2024PHQ-2AnswerDate RecordedTotal [id number] - TransportationAnswerDate RecordedIn the past 12 months, has lack of transportation kept you from medical appointments or from getting medications?No 11/26/2024In the past 12 months, has lack of transportation kept you from meetings, work, or from getting things needed for daily living?No11/26/2024 Housing InstabilityAnswerDate RecordedAre you worried or concerned that in the next two months you may not have stable housing that you own, rent or stay in as a part of a household?No11/26/2024hildcareAnswerDate RecordedChildcareUnknown 07/31/2018EmploymentAnswerDate FkjyqiokDhnncdukiySghsbut29/12/2019Hunger ScreeningAnswerDate RecordedWithin the past 12 months we worried whether our food would run out before we got money to buy more.Never True11/26/2024Within the past 12 months the food we bought just didn't last and we didn't have money to get more.Never True11/26/2024CommentsNoSex and Gender Information ValueDate RecordedSex Assigned at BirthNot on fileLegal LtjVktxcx12/06/2015 11:56 AM EDTGender IdentityNot on fileSexual OrientationNot on filedocumented as of this encounter Last Filed Vital Signs Vital SignReadingTime TakenCommentsBlood Uhfgqycm023/6412/01/2024 12:25 PM EDT Ucdjr287612/01/2024 12:25 PM ZEJEtcdyrlgkor47.9 ??C (98.4 ??F)12/01/2024 12:25 PM EDTRespiratory Fsyj4051 12:25 PM EDTOxygen Bqfxmqfusi57%12/01/2024 12:25 PM EDTInhaled Oxygen Concentration--Wifmif61.1 kg (178 lb 12.7 oz)11/30/2024 5:18 AM TSVRriuqp909.6 cm (5' 4 )11/27/2024 10:11 AM EDTBody Mass Index30.69 11/27/2024 10:11 AM EDTdocumented in this encounter Functional Status documented as of this encounter Mental Status * QuestionAnswerEntry DateAuthorOverall Cognitive ZvkvveL84/12/2025 2:44 PM EDT Tayla Mendoza COTA/L documented in this encounter Discharge Summaries * Yasmin Goodrich MD - 12/01/2024 1:29 PM EDT Images from the original note were not included. [facility] Medicine Discharge Summary DISCHARGE NOTE Demographics: Patient Name: Elif Shah : 1945 DATE OF ADMISSION: 11/26/2024 DATE OF DISCHARGE: 12/01/2024 DISCHARGE DIAGNOSES: Principal Problem: Closed fracture of right hip, initial encounter ([facility]) CONSULTANTS: Consulting Providers Provider Service Specialty Dane Garcia MD -- Nephrology PCP: Patient Care Team: Amador Abdalla MD as PCP - General (Family Medicine) HOSPITAL COURSE SUMMARY: Per HPI: This is a 79-year-old woman who has sustained a hip fracture transferred from [place] for intervention Mild acute kidney injury on CKD with peripheral edema and an elevated BNP Mechanical fall with right femoral neck fracture JAKI vs progressive CKD. Based on patient's creatinine from February 2024 she has CKD stage IIIA but if she has progress this quickly the etiology progression would not be clear unless this is more of a cardiorenal type of picture which could suggest that this is a possibility however her creatinine did slightly stabilized to improve with IV fluids. She does have a elevated BNP I do agree with the obtaining an echocardiogram which I have reordered a renal ultrasound is also pending. Patient does have some proteinuria and WBCs as well as glucose in the urine. CK is normal. Her urine sodium is 49. Reviewing her home meds she is on Jardiance as well as Lasix which were not continued for now I will hold them until she is evaluated by Nephrology. But ultimately the patient improved with holding diuretics and Jardiance and it was recommended to resume them on discharge and echocardiogram was complete it does not seem like this was consistent like with a cardiorenal type of picture but she will continue to follow up with Nephrology I did discuss it with the patient she verbalized understanding Essential hypertension most recent blood pressure noted as the patient currently is in the PACU usebetter control. For now I am only going to restart her Coreg at a reduced dose of 12.5 mg twice a day when I am able can increase that and restart her Imdur and hydralazine and as renal function and vitals allow restart her diuretic. 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 I will see what happens to her renal function before resuming her Paxil. Her QTC is not prolonged Postoperative anemia blood loss with iron deficiency Have noticed the consultation note from Nephrology We will continue to hold Jardiance and diuretics for now an SPEP was ordered in light of her anemiaI agree I also ordered further anemia evaluation as well too The patient has iron deficiency but needs to follow up with both Hematology and Nephrology for further SPEP update and bailer operators supervisor said that he would get her in contact with the evaporator supervisor as included on the after visit summary Patient is going to the nursing facility will have labs drawn Patient okay to restart Lasix and Jardiance as per Nephrology continue with amlodipine but reduce hydralazine to 50 mg t.i.d. Exam: BP 164/64 Pulse 62 Temp 36.9 ??C (98.4 ??F) (Oral) Resp 16 Ht 162.6 cm (5' 4 ) Wt 81.1 kg(178 lb 12.7 oz) LMP (LMP Unknown) SpO2 98% BMI 30.69 kg/m?? Intake/Output Summary (Last 24 hours) at 12/01/2024 1329 Last data filed at 12/01/2024 1218 Gross per 24 hour Intake 444.93 ml Output 1700 ml Net -1255.07 ml BP 164/64 Pulse 62 Temp 36.9 ??C (98.4 ??F) (Oral) Resp 16 Ht 162.6 cm (5' 4 ) Wt 81.1 kg (178 lb 12.7 oz) LMP (LMP Unknown) SpO2 98% BMI 30.69 kg/m?? General: Not in acute distress. Cooperative Neurological: alert and oriented times three. Grossly non focal Head, eyes and throat: Atraumatic, Conjunctive clear. Oral mucosa is clear and no exudate Neck: supple. Trachea midline CVS: regular rate and rhythm. No rub or murmur. Lungs: Clear to auscultation bilaterally. No crackles or wheezes. Abdomen: Positive bowel sounds. Soft and nontender. No organomegaly Extremities: No edema. No cyanosis Skin: no visible rashes. No visible lesions. Grossly intact. Labs: Recent Results (from the past 48 hours) Bedside Glucose *Place/Obtain serum glucose if >500 per glucometer. Collection Time: 11/29/24 4:34 PM Result Value Ref Range Bedside Glucose (POC) 234 (H) 65 - 99 mg/dL Bedside Glucose *Place/Obtain serum glucose if >500 per glucometer. Collection Time: 11/29/24 9:41 PM Result Value Ref Range Bedside Glucose (POC) 236 (H) 65 - 99 mg/dL CBC auto differential Collection Time: 11/30/24 5:34 AM Result Value Ref Range WBC 8.1 4 - 11 x10E9/L RBC Count 2.53 (L) 3.8 - 5.2 X10E12/L Hemoglobin 8.5 (L) 11.7 - 15.5 g/dL Hematocrit 24.7 (L) 35 - 47 % MCV 98 80 - 100 fL MCH 33.6 27 - 34 pg MCHC 34.4 32 - 36 g/dL RDW 12.4 11.5 - 15 % Platelet Count 136 (L) 150 - 450 X10E9/L MPV 9.8 7 - 12 fL Neutrophils % 80.4 % Lymphocytes % 5.6 % Monocytes % 9.9 % Eosinophils % 3.8 % Basophils % 0.3 % Neutrophils Absolute (A) 6.5 1.5 - 6.6 10*3/uL Lymphocytes Absolute 0.5 (L) 1.0 - 3.5 10*3/uL Monocytes Absolute 0.8 0.0 - 0.9 10*3/uL Eosinophils Absolute 0.3 0.0 - 0.4 10*3/uL Basophils Absolute 0.0 0.0 - 0.2 10*3/uL Differential Type AUTOMATED DIFFERENTIAL Comprehensive metabolic panel Collection Time: 11/30/24 5:34 AM Result Value Ref Range SODIUM 136 134 - 146 mmol/L POTASSIUM 5.0 3.5 - 5.0 mmol/L CHLORIDE 101 98 - 109 mmol/L CARBON DIOXIDE 28 22 - 32 mmol/L ANION GAP 7 5 - 15 mmol/L BLOOD UREA NITROGEN 46 (H) 5 - 27 mg/dL CREATININE 1.86 (H) 0.40 - 1.00 mg/dL GLUCOSE 222 (H) 65 - 99 mg/dL CALCIUM 9.5 8.5 - 10.5 mg/dL TOTAL PROTEIN 5.4 (L) 6.0 - 8.0 g/dL ALBUMIN 3.1 (L) 3.2 - 5.3 g/dL ALKALINE PHOSPHATASE 88 39 - 130 U/L AST 22 <=41 U/L ALT 15 <=31 U/L BILIRUBIN,TOTAL 0.6 0.3 - 1.2 mg/dL EGFR Non-Race Dependent 28 (L) >=60 ml/min/1.73sq.m Magnesium Collection Time: 11/30/24 5:34 AM Result Value Ref Range MAGNESIUM 2.1 1.8 - 2.6 mg/dL Bedside Glucose *Place/Obtain serum glucose if >500 per glucometer. Collection Time: 11/30/24 8:35 AM Result Value Ref Range Bedside Glucose (POC) 199 (H) 65 - 99 mg/dL Bedside Glucose *Place/Obtain serum glucose if >500 per glucometer. Collection Time: 11/30/24 1:08 PM Result Value Ref Range Bedside Glucose (POC) 274 (H) 65 - 99 mg/dL Bedside Glucose *Place/Obtain serum glucose if >500 per glucometer. Collection Time: 11/30/24 5:14 PM Result Value Ref Range Bedside Glucose (POC) 287 (H) 65 - 99 mg/dL Bedside Glucose *Place/Obtain serum glucose if >500 per glucometer. Collection Time: 11/30/24 8:57 PM Result Value Ref Range Bedside Glucose (POC) 250 (H) 65 - 99 mg/dL CBC auto differential Collection Time: 12/01/24 6:02 AM Result Value Ref Range WBC 5.9 4 - 11 x10E9/L RBC Count 2.39 (L) 3.8 - 5.2 X10E12/L Hemoglobin 7.9 (L) 11.7 - 15.5 g/dL Hematocrit 23.1 (L) 35 - 47 % MCV 97 80 - 100 fL MCH 32.9 27 - 34 pg MCHC 34.0 32 - 36 g/dL RDW 12.4 11.5 - 15 % Platelet Count 143 (L) 150 - 450 X10E9/L MPV 9.2 7 - 12 fL Neutrophils % 67.7 % Lymphocytes % 12.6 % Monocytes % 12.2 % Eosinophils % 6.9 % Basophils % 0.6 % Neutrophils Absolute (A) 4.0 1.5 - 6.6 10*3/uL Lymphocytes Absolute 0.7 (L) 1.0 - 3.5 10*3/uL Monocytes Absolute 0.7 0.0 - 0.9 10*3/uL Eosinophils Absolute 0.4 0.0 - 0.4 10*3/uL Basophils Absolute 0.0 0.0 - 0.2 10*3/uL Differential Type AUTOMATED DIFFERENTIAL Comprehensive metabolic panel Collection Time: 12/01/24 6:02 AM Result Value Ref Range SODIUM 140 134 - 146 mmol/L POTASSIUM 4.6 3.5 - 5.0 mmol/L CHLORIDE 103 98 - 109 mmol/L CARBON DIOXIDE 29 22 - 32 mmol/L ANION GAP 8 5 - 15 mmol/L BLOOD UREA NITROGEN 44 (H) 5 - 27 mg/dL CREATININE 1.80 (H) 0.40 - 1.00 mg/dL GLUCOSE 207 (H) 65 - 99 mg/dL CALCIUM 9.4 8.5 - 10.5 mg/dL TOTAL PROTEIN 5.4 (L) 6.0 - 8.0 g/dL ALBUMIN 3.0 (L) 3.2 - 5.3 g/dL ALKALINE PHOSPHATASE 71 39 - 130 U/L AST 14 <=41 U/L ALT 12 <=31 U/L BILIRUBIN,TOTAL 0.5 0.3 - 1.2 mg/dL EGFR Non-Race Dependent 29 (L) >=60 ml/min/1.73sq.m Magnesium Collection Time: 12/01/24 6:02 AM Result Value Ref Range MAGNESIUM 2.1 1.8 - 2.6 mg/dL Bedside Glucose *Place/Obtain serum glucose if >500 per glucometer. Collection Time: 12/01/24 8:14 AM Result Value Ref Range Bedside Glucose (POC) 200 (H) 65 - 99 mg/dL Bedside Glucose *Place/Obtain serum glucose if >500 per glucometer. Collection Time: 12/01/24 12:17 PM Result Value Ref Range Bedside Glucose (POC) 280 (H) 65 - 99 mg/dL Your medication list PAUSE taking these medications Instructions Last Dose Given Next Dose Due SITagliptin phosphate 25 mg tablet Wait to take this until your doctor or other care provider tells you to start again. After stability of renal function check with PCP Commonly known as: ROSSANA START taking these medications Instructions Last Dose Given Next Dose Due acetaminophen 500 mg tablet Commonly known as: TYLENOL EXTRA STRENGTH Take 2 tablets (1,000 mg total) by mouth every 8 (eight) hours. amLODIPine 5 mg tablet Commonly known as: NORVASC Start taking on: December 02, 2024 Take 2 tablets (10 mg total) by mouth in the morning. calcium citrate 200 mg (950 mg) tablet Commonly known as: CALCITRATE Take 2 tablets (400 mg total) by mouth in the morning and 2 tablets (400 mg total) at noon and 2 tablets (400 mg total) in the evening. Take with meals. ceFUROxime 250 mg tablet Commonly known as: CEFTIN Take 1 tablet (250 mg total) by mouth every 12 (twelve) hours for 12 doses. cholecalciferol (vitamin D3) 2,000 units tablet Start taking on: December 02, 2024 Take 1 tablet (2,000 Units total) by mouth in the morning. heparin (porcine) 5,000 unit/mL injection Inject 1 mL (5,000 Units total) under the skin every 8 (eight) hours for 28 days. naloxone 4 mg/actuation spray,non-aerosol nasal spray Commonly known as: NARCAN Administer 1 spray (4 mg total) into alternating nostrils as needed for opioid reversal. oxyCODONE 5 mg immediate release tablet Commonly known as: ROXICODONE Take 1 tablet (5 mg total) by mouth every 6 (six) hours as needed for pain for up to 3 days. Max Daily Amount: 20 mg sennosides-docusate sodium 8.6-50 mg Commonly known as: SENOKOT-S Take 2 tablets by mouth nightly. CHANGE how you take these medications Instructions Last Dose Given Next Dose Due hydrALAZINE 100 mg tablet Commonly known as: APRESOLINE What changed: how much to take Take 0.5 tablets (50 mg total) by mouth at noon and 0.5 tablets (50 mg total) before bedtime. CONTINUE taking these medications Instructions Last Dose Given Next Dose Due aspirin 81 mg buPROPion XL 150 mg 24 hr tablet Commonly known as: WELLBUTRIN XL carvediloL 25 mg tablet Commonly known as: COREG famotidine 40 mg tablet Commonly known as: PEPCID fluticasone propionate 50 mcg/actuation nasal spray Commonly known as: FLONASE furosemide 40 mg tablet Commonly known as: LASIX isosorbide mononitrate 30 mg 24 hr tablet Commonly known as: IMDUR JARDIANCE 25 mg tablet tablet Generic drug: empagliflozin LIPITOR 80 mg tablet Generic drug: atorvastatin montelukast 10 mg tablet Commonly known as: SINGULAIR pantoprazole 40 mg EC tablet Commonly known as: PROTONIX PARoxetine 40 mg tablet Commonly known as: PAXIL Take 1 tablet (40 mg total) by mouth in the morning. polyethylene glycol 17 gram packet Commonly known as: GLYCOLAX STOP taking these medications metoclopramide 5 mg tablet Commonly known as: REGLAN temazepam 7.5 mg capsule Commonly known as: RESTORIL Where to Get Your Medications You can get these medications from any pharmacy Bring a paper prescription for each of these medications oxyCODONE 5 mg immediate release tablet Information about where to get these medications is not yet available Ask your nurse or doctor about these medications acetaminophen 500 mg tablet amLODIPine 5 mg tablet calcium citrate 200 mg (950 mg) tablet ceFUROxime 250 mg tablet cholecalciferol (vitamin D3) 2,000 units tablet heparin (porcine) 5,000 unit/mL injection hydrALAZINE 100 mg tablet naloxone 4 mg/actuation spray,non-aerosol nasal spray sennosides-docusate sodium 8.6-50 mg DISCHARGE INSTRUCTION: Disposition: Discharge to [facility] Condition:Stable Activity: per therapy Diet: Adult nutrition supplements Adult diet Regular Texture; Consistent Carb 210 grams (1800 kcal); 2000 mg Sodium; Low Potassium (50-70 mEq); Fluid Restriction 1800 mL Adult diet Follow up: Dane Garcia MD [address] [facility] [address] Follow up in 2 week(s) . MD Justin [facility] [email or web address] Please call for appointment for post discharge follow-up : Office phone Number: [phone] Office If lab work up has not been ordered before appointment , please call office above and Labs will be ordered for you so that when you come for appointment we have lab results , have results faxed to the office please Jon Garcia MD [id number] [facility] [address] Follow up in 2 week(s) For Iron infusion Amador Abdalla MD [address] [facility] [address] Schedule an appointment as soon as possible for a visit in 1 week(s) For most accurate medication list, please review the discharge medication summary. 33 minutes were spent on discharging this patient. Electronically signed by: Yasmin Goodrich MD Disclaimer Note: To increase efficiency, your physician may have prepared this document using voicerecognition technology. In that case, if a word or phrase is confusing, or does not make sense, this is likely due to a recognition error within the program which was not discovered during the physician ???s review. If you believe an error has occurred, please notify your physician ???s office at your earliest convenience, so we can correct any mistakes. documented in this encounter Discharge Instructions * Discharge Instructions* Inocencia Kearney PA-C - 11/27/2024 11:59 AM EDT ORTHOPAEDIC DISCHARGE INSTRUCTIONS Diagnosis: Right femoral neck fracture Procedure: Right hip hemiarthroplasty Follow-Up Appointment: Dr. Andersen on Future Appointments Date Time Provider Department Center 12/10/2024 8:45 AM Kirby Andersen MD [facility] Office Location: [facility] [address] [place] [address] RN: Julia King RN: Makeda Bhagat RN: Karine Jimenez RN: Benita Fernandez RN: Maninder Andersen Call 911 immediately if you experience: Chest pain, difficulty breathing, or shortness of breath. Call the office for concerns related to: calf pain, leg swelling, fever/chills, redness or drainagearound the incision sites, prolong numbness/tingling, or increased pain-that is not relieved with medications, ice and elevation. Weight-bearing instructions: Right lower extremity: maintain weight bearing as tolerated General Instructions: Incision care: Incision Care: Keep incision(s) covered, clean and dry at all times. Do not apply creams or ointments to incision(s). Leave dressing(s) in place until follow up visit. Notify the office if your dressing becomes saturated. Bathing Instructions: Keep waterproof aquacel brown dressing in place for showering. Exercises and range of motion: Wiggle (flex and extend) fingers/toes of affected extremity frequently with gentle range of motion. For upper extremity injuries, passively and actively make full fists with the fingers of the operative side. Use your other hand to assist with achieving full flexion & extension. Placed ice bag on affected extremity: 20 minutes on every 2-4 hours. You may not 'feel the cold' because of your dressing, but it is still beneficial to reduce the swelling Elevate the affected extremity above the heart to reduce swelling. For ankle & foot injuries concentrate on elevating your 'toes above your nose' Medications: Refer to discharge medication reconciliation form for complete discharge medication list. If you have a fracture/broken bone: Avoid NSAIDs/anti-inflammatory medications (example ibuprofen, Advil, Aleve, Motrin) - they may delay bone healing. Vitamins/supplements It is recommended to take Calcium and Vitamin D for bone health. Please refer to the medication reconciliation form for exact doses. Pain medications Pain medicine has been prescribed for management of your pain symptoms. Please refer to the medication reconciliation form for exact doses. Prevention of blood clots Many orthopedic conditions can predispose you to blood clots. Medications for prevention of blood clots may be appropriate. If prescribed, they will be detailed on the Discharge Medication Reconciliation. * Attachments The following attachments cannot be sent through Care Everywhere. * Hip fracture in adults ??? Discharge instructions ([place]sh) * Osteoporosis and osteopenia (low bone mass) ([place]) * Preventing falls in adults ([place]) documented in this encounter Medications at Time of Discharge MedicationSigDispense QuantityRefillsLast FilledStart DateEnd Date acetaminophen (TYLENOL EXTRA STRENGTH) 500 mg tablet Take 2 tablets (1,000 mg total) by mouth every 8 (eight) hours.12/01/2024 amLODIPine (NORVASC) 5 mg tablet Take 2 tablets (10 mg total) by mouth in the morning.12/02/2024 aspirin 81 mg Take 1 tablet (81 mg total) by mouth in the morning. atorvastatin (LIPITOR) 80 mg tablet Take 1 tablet (80 mg total) by mouth in the morning. buPROPion XL (WELLBUTRIN XL) 150 mg 24 hr tablet Take 1 tablet (150 mg total) by mouth in the morning. calcium citrate (CALCITRATE) 200 mg (950 mg) tablet Take 2 tablets (400 mg total) by mouth in the morning and 2 tablets (400 mg total) at noon and 2 tablets (400 mg total) in the evening. Take with meals. 12/01/2024 carvediloL (COREG) 25 mg tablet Take 1 tablet (25 mg total) by mouth in the morning and 1 tablet (25 mg total) in the evening. Takewith meals. cholecalciferol, vitamin D3, 2,000 units tablet Take 1 tablet (2,000 Units total) by mouth in the morning.12/02/2024 empagliflozin (JARDIANCE) 25 mg tablet tablet Take 1 tablet (25 mg total) by mouth in the morning. famotidine (PEPCID) 40 mg tablet Take 1 tablet (40 mg total) by mouth in the morning. fluticasone propionate (FLONASE) 50 mcg/actuation nasal spray Administer 2 sprays into each nostril as needed for rhinitis (both nostrils q24 prn). furosemide (LASIX) 40 mg tablet Take 1 tablet (40 mg total) by mouth daily. heparin sodium,porcine (heparin, porcine,) 5,000 unit/mL injection Inject 1 mL (5,000 Units total) under the skin every 8 (eight) hours for 28 days. hydrALAZINE (APRESOLINE) 100 mg tablet Take 0.5 tablets (50 mg total) by mouth at noon and 0.5 tablets (50 mg total) before bedtime.12/01/2024 isosorbide mononitrate (IMDUR) 30 mg 24 hr tablet Take 1 tablet (30 mg total) by mouth daily. montelukast (SINGULAIR) 10 mg tablet Take 1 tablet (10 mg total) by mouth nightly. naloxone (NARCAN) 4 mg/actuation spray,non-aerosol nasal spray Administer 1 spray (4 mg total) into alternating nostrils as needed for opioid reversal.12/01/2024 pantoprazole (PROTONIX) 40 mg EC tablet Take 1 tablet (40 mg total) by mouth in the morning. PARoxetine (PAXIL) 40 mg tablet Take 1 tablet (40 mg total) by mouth in the morning.05/17/2024 polyethylene glycol (GLYCOLAX) 17 gram packet Take 17 g by mouth as needed (daily prn). sennosides-docusate sodium (SENOKOT-S) 8.6-50 mg Take 2 tablets by mouth nightly.12/01/2024 SITagliptin phosphate (JANUVIA) 25 mg tablet Take 1 tablet (25 mg total) by mouth in the morning. ceFUROxime (CEFTIN) 250 mg tablet Take 1 tablet (250 mg total) by mouth every 12 (twelve) hours for 12 doses. oxyCODONE (ROXICODONE) 5 mg immediate release tablet Indications:Closed fracture of right hip, initial encounter ([facility])Take 1 tablet (5 mg total) by mouth every 6 (six) hours as needed for pain for up to 3 days. Max Daily Amount: 20 mg 12 tablet documented as of this encounter Progress Notes * Dane Garcia MD - 12/01/2024 11:22 AM EDT Images from the original note were not included. [facility] [place], [facility] Nephrology Progress Note Patient Name: Elif Shah : 1945 Date of Service: 12/01/24 PCP: AMADOR ABDALLA MD Attending Physician: Yasmin Goodrich MD Admission Date: 11/26/2024 Length of stay: LOS: 5 days Chief complaint: Chief Complaint Patient presents with Fall Reason for Consult: Acute on chronic kidney disease stage IIIB/4 Assessment and Plan. 79-year-old female with a past medical history significant for chronic kidney disease (CKD) stage IIIa, diabetes mellitus type 2, heart failure with preserved ejection fraction, essential hypertension, fibromyalgia, anxiety, and depression. Baseline creatinine was 1.6-2.0 mg/dL based on previous records, with a creatinine of 1.4 mg/dL in February 2024. Patient presented to the emergency departmenton 11/26/2024 with the chief complaint of a fall and right hip pain. The patient states she was walking too fast with her walker when she tripped and fell, landing on her right hip. She denied head or neck injury, loss of consciousness, chest pain, or shortness of breath. In the emergency department, workup revealed a closed fracture of the right hip. Labs on admission showed BUN 51 mg/dL and creatinine 2.79 mg/dL. Patient underwent right hip hemiarthroplasty on 11/27/2024. Patient was admittedfor further management of the hip fracture. Nephrology consultation was requested for management of acute on chronic kidney disease. Assessment Acute kidney injury, likely hemodynamic in nature due to hemodynamic instability. Rule out cardiorenal syndrome. No recent exposure to contrast or NSAIDs. Home medications of Jardiance and Lasix noted. No evidence of obstructive uropathy based on current data. Urine studies are indeterminate but not consistent with a pre-renal state. Chronic kidney disease stage 3b-4. Baseline creatinine 1.6-2.0 mg/dL, GFR likely 30-35 ml/min. Hyperkalemia. Metabolic alkalosis on initial evaluation. Volume Status: Euvolemic to mildly hypervolemic. Evidence includes elevated BNP of 605 pg/mL and mild lower extremity edema ( Non pitting ). Chest X-ray showed no significant pulmonary vascular congestion. Hypertension: BP is elevated. Hemodynamics: History of heart failure with preserved ejection fraction, EF 55-60%. Right subcapital femoral neck fracture, status post hemiarthroplasty. Mechanical fall. Hypovitaminosis D. Diabetes mellitus type 2. Coronary artery disease. Gastroesophageal reflux disease. Anxiety and depression. Plan Patient is clinically stable and appropriate for discharge. Renal function remains stable and continues to improve. Resume Jardiance on discharge. Resume home dose of Lasix on discharge. Continue Norvasc 10 mg daily for blood pressure control. Continue Coreg with appropriate holding parameters. Resume Hydralazine 50 mg three times daily. SPEP and immunofixation results are pending; to be followed up as an outpatient. Patient noted to have anemia and iron deficiency; will require iron infusion as an outpatient. Will arrange iron infusion and repeat laboratory workup in approximately 1-2 weeks, followed by nephrology office visit. Discussed plan with patient in detail; patient verbalized understanding. Advised to follow up with nephrology after discharge. No objection to discharge from the nephrology standpoint. No objection to discharge as for now from Nephrology stand point, patient will need close follow upwith Nephrology after discharge today, with prior lab workup including CBC and BMP, discussed patient and bedside. Outpatient nephrology follow-up with Dr. Dane Garcia in 3 weeks; Address [address] [place] [address], [address], [place] [address], Phone office: [phone] Thank you for this consultation DANE GARCIA MD on 12/01/2024 at 11:22 AM [facility] [email or web address] Schedule : See Epic on-call schedule for [facility] ( [facility] ) Nephrology Working Hours : Epic chat during working hours, if no response please use on- call physician reach out as below After Hours : Answering service contact : [phone] Subjective Seen at bedside, no acute distress no chest pain or worsening of shortness of breath reported, no new complaint. Plan discussed in detail at bedside all questions answered in detail appropriate counseling done. Past Medical History: Diagnosis Date CHF (congestive heart failure) ([facility]) Chronic kidney disease Coronary artery disease Dental disease Diabetes mellitus type 2, controlled ([facility]) Dizziness GERD (gastroesophageal reflux disease) Hyperlipidemia Hypertension Myocardial infarction ([facility]) Prolonged emergence from general anesthesia Past Surgical History: Procedure Laterality Date CHOLECYSTECTOMY CORONARY STENT PLACEMENT ESOPHAGOSCOPY HEMIARTHROPLASTY HIP Right 11/27/2024 Performed by Kirby Andersen MD at [facility] LAPAROSCOPIC HYSTERECTOMY OOPHORECTOMY OVARIAN CYST SURGERY History reviewed. No pertinent family history. Social History Socioeconomic History Marital status: Spouse name: Not on file Number of children: Not on file Years of education: Not on file Highest education level: Not on file Occupational History Not on file Tobacco Use Smoking status: Never Smokeless tobacco: Never Vaping Use Vaping status: Not on file Substance and Sexual Activity Alcohol use: Not Currently Drug use: Never Sexual activity: Defer Other Topics Concern Not on file Social History Narrative Not on file Social Drivers of Health Financial Resource Strain: Low Risk (01/22/2024) Received from [facility] Overall Financial Resource Strain (CARDIA) Difficulty of Paying Living Expenses: Not very hard Food Insecurity: No Food Insecurity (11/26/2024) Hunger Screening Food Insecurity - Worry: Never True Food Insecurity - Inability: Never True Transportation Needs: No Transportation Needs (11/26/2024) PRAPARE - Transportation Lack of Transportation (Medical): No Lack of Transportation (Non-Medical): No Physical Activity: Inactive (01/22/2024) Received from [facility] Exercise Vital Sign Days of Exercise per Week: 0 days Minutes of Exercise per Session: 0 min Stress: Stress Concern Present (01/22/2024) Received from [facility] [place] [facility] Occupational Health - Occupational Stress Questionnaire Feeling of Stress : To some extent Social Connections: Moderately Isolated (01/22/2024) Received from [facility] Social Connection and Isolation Panel [NHANES] Frequency of Communication with Friends and Family: Three times a week Frequency of Social Gatherings with Friends and Family: Twice a week Attends Rastafari Services: 1 to 4 times per year Active Member of Clubs or Organizations: No Attends Club or Organization Meetings: Never Marital Status: Interpersonal Safety: Not At Risk (11/26/2024) Humiliation, Afraid, Rape, and Kick questionnaire Fear of Current or Ex-Partner: No Emotionally Abused: No Physically Abused: No Sexually Abused: No Housing Instability: Low Risk (11/26/2024) Housing Instability Housing Instability: No Prior to Admission medications Medication Sig Start Date End Date Taking? Authorizing Provider aspirin 81 mg Take 1 tablet (81 mg total) by mouth in the morning. Yes Not In System Ref Prov atorvastatin (LIPITOR) 80 mg tablet Take 1 tablet (80 mg total) by mouth in the morning. Yes Not InSystem Ref Prov buPROPion XL (WELLBUTRIN XL) 150 mg 24 hr tablet Take 1 tablet (150 mg total) by mouth in the morning. Yes Not In System Ref Prov carvediloL (COREG) 25 mg tablet Take 1 tablet (25 mg total) by mouth in the morning and 1 tablet (25 mg total) in the evening. Take with meals. Yes Not In System Ref Prov empagliflozin (JARDIANCE) 25 mg tablet tablet Take 1 tablet (25 mg total) by mouth in the morning.Yes Not In System Ref Prov famotidine (PEPCID) 40 mg tablet Take 1 tablet (40 mg total) by mouth in the morning. Yes Not In System Ref Prov fluticasone propionate (FLONASE) 50 mcg/actuation nasal spray Administer 2 sprays into each nostrilas needed for rhinitis (both nostrils q24 prn). Yes Not In System Ref Prov furosemide (LASIX) 40 mg tablet Take 1 tablet (40 mg total) by mouth daily. Yes Not In System Ref Prov hydrALAZINE (APRESOLINE) 100 mg tablet Take 1 tablet (100 mg total) by mouth at noon and 1 tablet (100 mg total) before bedtime. Yes Not In System Ref Prov isosorbide mononitrate (IMDUR) 30 mg 24 hr tablet Take 1 tablet (30 mg total) by mouth daily. Yes Not In System Ref Prov metoclopramide (REGLAN) 5 mg tablet Take 1 tablet (5 mg total) by mouth once daily at bedtime. Give1 tablet by mouth at bedtime nor nausea Yes Not In System Ref Prov montelukast (SINGULAIR) 10 mg tablet Take 1 tablet (10 mg total) by mouth nightly. Yes Not In System Ref Prov pantoprazole (PROTONIX) 40 mg EC tablet Take 1 tablet (40 mg total) by mouth in the morning. Yes Not In System Ref Prov PARoxetine (PAXIL) 40 mg tablet Take 1 tablet (40 mg total) by mouth in the morning. 05/17/24 Yes Boby Earl, DO polyethylene glycol (GLYCOLAX) 17 gram packet Take 17 g by mouth as needed (daily prn). Yes Not In System Ref Prov SITagliptin phosphate (JANUVIA) 25 mg tablet Take 1 tablet (25 mg total) by mouth in the morning. Yes Not In System Ref Prov temazepam (RESTORIL) 7.5 mg capsule Take 1 capsule (7.5 mg total) by mouth nightly as needed for sleep. Not In System Ref Prov Allergies Allergen Reactions Clindamycin Anaphylaxis and Other (See Comments) Exenatide GI Disturbance and Rash Other Reaction(s): itching Penicillins Facial Swelling, Hives, Itching, Other (See Comments) and Rash Cyclobenzaprine Hives, Itching, Other (See Comments) and Rash Codeine Hives and Other (See Comments) Doxycycline Diarrhea Dye Ethinyl Estradiol Other (See Comments) Iodinated Contrast Media Hives and Other (See Comments) Other Reaction(s): itching/rash Levofloxacin Levonorgestrel Other (See Comments) Liraglutide GI Disturbance Prochlorperazine Other (See Comments) Sucralfate Other (See Comments) Ticagrelor Other Reaction(s): sickness Trazodone GI Disturbance Other Rash Review Of Systems: 12 point review of systems was done in detail and is negative except as above in HPI Physical Exam: VITALS BP 177/49 Pulse 66 Temp 37.3 ??C (99.1 ??F) (Oral) Resp 16 Ht 162.6 cm (5' 4 ) Wt 81.1 kg(178 lb 12.7 oz) LMP (LMP Unknown) SpO2 94% BMI 30.69 kg/m?? Wt Readings from Last 3 Encounters: 11/30/24 81.1 kg (178 lb 12.7 oz) 11/26/24 79.8 kg (176 lb) 05/13/24 81.7 kg (180 lb 3.2 oz) BMI: Body mass index is 30.69 kg/m??. I/O (24 Hours) Intake/Output Summary (Last 24 hours) at 12/01/2024 1122 Last data filed at 12/01/2024 0844 Gross per 24 hour Intake 818.82 ml Output 2500 ml Net -1681.18 ml General: General examination: Well-developed, well-nourished. Awake, alert, and not in acute distress. HEENT: No conjunctival pallor, anicteric sclera, no oropharyngeal erythema Neck: No lymphadenopathy, no JVD Cardiovascular: Regular rate and rhythm. No murmurs auscultated. Respiratory: Clear to auscultation bilaterally. No crackles or wheezes. Abdomen: Soft, non-distended, normoactive bowel sounds. Non-tender to palpation. Extremities: Bilateral lower extremity edema. Neurological: Alert and oriented to person, place, and time. No focal deficits. Skin: No rashes or lesions Psychiatric: Appropriate affect, no acute distress Medications Scheduled Meds: acetaminophen, 1,000 mg, oral, Q8H amLODIPine, 5 mg, oral, Q12H atorvastatin, 80 mg, oral, Daily buPROPion XL, 150 mg, oral, Daily calcium citrate, 400 mg, oral, TID with meals carvediloL, 25 mg, oral, BID with meals ceFUROxime, 250 mg, oral, Q12H BOYD cholecalciferol, 2,000 Units, oral, Daily heparin (porcine), 5,000 Units, subcutaneous, Q8H BOYD insulin lispro, 1-4 Units, subcutaneous, Nightly insulin lispro, 2-10 Units, subcutaneous, TID with meals iron sucrose, 200 mg, intravenous, Daily isosorbide mononitrate, 30 mg, oral, Daily montelukast, 10 mg, oral, Nightly PARoxetine, 40 mg, oral, Daily polyethylene glycol, 17 g, oral, Daily sennosides-docusate sodium, 2 tablet, oral, Nightly Continuous Infusions: dextrose 5 % in water, 100 mL/hr dextrose 5 % in water, 100 mL/hr PRN Meds: dextrose dextrose dextrose 5 % in water dextrose 5 % in water dextrose 50 % in water (D50W) dextrose 50 % in water (D50W) glucagon (human recombinant) glucagon (human recombinant) HYDROmorphone ondansetron oxyCODONE oxyCODONE perflutren lipid microspheres (DEFINITY) dilution injection 1.43 mg/10 mL sodium chloride Results Review Renal Chemistry Results from last 7 days Lab Units 12/01/24 0602 11/30/24 0534 11/29/24 0532 11/28/24 07511/27/24 0542 SODIUM mmol/L 140 136 138 136 140 POTASSIUM mmol/L 4.6 5.0 5.2* 5.2* 4.5 CHLORIDE mmol/L 103 101 103 102 105 CO2 mmol/L 29 28 28 26 28 BUN mg/dL 44* 46* 53* 50* 49* CREATININE mg/dL 1.80* 1.86* 2.28* 2.45* 2.53* CALCIUM mg/dL 9.4 9.5 9.5 9.1 9.1 MAGNESIUM mg/dL 2.1 2.1 2.2 2.3 -- PHOSPHORUS mg/dL -- -- -- -- 4.3 Hepatic: Lab Results Component Value Date AST 14 12/01/2024 AST 22 11/30/2024 AST 56 (H) 11/29/2024 ALT 12 12/01/2024 ALT 15 11/30/2024 ALT 39 (H) 11/29/2024 ALKPHOS 71 12/01/2024 ALKPHOS 88 11/30/2024 ALKPHOS 87 11/29/2024 BNP Lab Results Component Value Date BNP 605 (H) 11/27/2024 BNP 382 (H) 11/26/2024 BNP 496 (H) 06/09/2016 Albumin: Lab Results Component Value Date ALBUMIN 3.0 (L) 12/01/2024 CBC Results from last 7 days Lab Units 12/01/24 0602 11/30/24 0534 11/29/24 0532 11/28/24 07511/27/24 0542 WBC x10E9/L 5.9 8.1 7.0 9.1 8.1 HEMOGLOBIN g/dL 7.9* 8.5* 8.2* 9.3* 11.0* HEMATOCRIT % 23.1* 24.7* 24.2* 28.2* 32.1* PLATELETS X10E9/L 143* 136* 120* 138* 147* Results from last 7 days Lab Units 12/01/24 0814 12/01/24 0602 11/30/24205611/30/24 1714 11/30/24 1308 BEDSIDE GLUCOSE mg/dL 200* -- 250* 287* 274* GLUCOSE mg/dL -- 207* -- -- -- Urine Studies: Lab Results Component Value Date COLOR Yellow 11/28/2024 COLOR YELLOW 04/11/2015 TURBIDITY Clear 11/28/2024 TURBIDITY CLEAR 04/11/2015 SPECIFICGRA 1.018 11/28/2024 SPECIFICGRA 1.010 04/11/2015 NITRITE Negative 11/28/2024 NITRITE Negative 04/11/2015 PHURINE 5.5 11/28/2024 PHURINE 5.5 04/11/2015 LEUKOCYTE Negative 11/28/2024 LEUKOCYTE Negative 04/11/2015 PROTEIN 50 mg/dL (A) 11/28/2024 PROTEIN Negative 04/11/2015 KETONES Negative 11/28/2024 KETONES Negative 04/11/2015 UROBILINOGEN <1.1 eu/dL 11/28/2024 UROBILINOGEN 0.2 04/11/2015 BLOODHGB Small (A) 11/28/2024 BLOODHGB Negative 04/11/2015 Lab Results Component Value Date URINECREATI 83.62 11/28/2024 URINECREATI 83.62 11/28/2024 URINECREATI 85.13 11/28/2024 PROTUR 1,270 (H) 11/28/2024 MICROALBUR 22.6 (H) 11/28/2024 Lab Results Component Value Date UPROCRTRAT 1.52 (H) 11/28/2024 ALBCREATRA 3,668.3 (H) 03/19/2024 Urine Sodium: No components found for: MILES Urine Potassium: No results found for: KUR Urine Chloride: No results found for: CLUR Urine Osmolarity: No components found for: OSMOU Urine Creatinine: No results found for: LABCREA Urine Eosinophils: No components found for: UEOS Urine Protein: No components found for: TPU Immunology Profile No results found for: PROTELECTR , SEDRATE , CRP , RF , ANASCREEN , ANTIDSDNA , C3 , C4 , ANCA , MYELOP , PROTEINASE3 , ANTIGLOMERU No results found for: HAV , HEPAIGM , HEPBIGM , HEPBCAB , HBEAG , HEPCAB WOJCIECH: No results found for: WOJCIECH C3:No results found for: C3 C4:No results found for: C4 MPO ANCA: No results found for: MPO PR3 ANCA: No components found for: PR3 hepatitis serologies ANTIGBM:No components found for: GBMABIGG HEPATITIS B SURFACE AG: No results found for: HEPBSAG HEPATITIS C AB: No results found for: HEPCAB Electrophoresis: SPEP:No results found for: PROT , LABALPH , LABBETA , PATH UPEP:No results found for: LABPE Anemia Profile Lab Results Component Value Date WBC 5.9 12/01/2024 WBC 8.1 11/30/2024 HGB 7.9 (L) 12/01/2024 HGB 8.5 (L) 11/30/2024 HCT 23.1 (L) 12/01/2024 HCT 24.7 (L) 11/30/2024 PLT 143 (L) 12/01/2024 PLT 136 (L) 11/30/2024 Lab Results Component Value Date IRON 12 (L) 11/29/2024 TIBC 273 11/29/2024 FERRITIN 76 11/29/2024 Bone Mineral Profile Lab Results Component Value Date PTH 116 (H) 11/27/2024 CALCIUM 9.4 12/01/2024 Results from last 7 days Lab Units 12/01/24 0602 11/30/24 0534 11/29/24 0532 MAGNESIUM mg/dL 2.1 2.1 2.2 Echocardiogram: No results found. Thank you for the consultation. Please do not hesitate to contact us for any further questions/concerns. We will continue to follow along with you. * Yasmin Goodrich MD - 11/30/2024 6:39 PM EDT Internal Medicine Progress Note: 11/30/2024 Patient Name: Elif Shah : 1945 Assessment and Plan: This is a 79-year-old woman who has sustained a hip fracture transferred from [place] for intervention Mild acute kidney injury on CKD with peripheral edema and an elevated BNP Mechanical fall with right femoral neck fracture JAKI vs progressive CKD. Based on patient's creatinine from February 2024 she has CKD stage IIIA but if she has progress this quickly the etiology progression would not be clear unless this is more of a cardiorenal type of picture which could suggest that this is a possibility however her creatinine did slightly stabilized to improve with IV fluids. She does have a elevated BNP I do agree with the obtaining an echocardiogram which I have reordered a renal ultrasound is also pending. Patient does have some proteinuria and WBCs as well as glucose in the urine. CK is normal. Her urine sodium is 49. Reviewing her home meds she is on Jardiance as well as Lasix which were not continued for now I will hold them until she is evaluated by Nephrology Essential hypertension most recent blood pressure noted as the patient currently is in the PACU usebetter control. For now I am only going to restart her Coreg at a reduced dose of 12.5 mg twice a day when I am able can increase that and restart her Imdur and hydralazine and as renal function and vitals allow restart her diuretic. 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 I will see what happens to her renal function before resuming her Paxil. Her QTC is not prolonged Postoperative anemia blood loss with iron deficiency Have noticed the consultation note from Nephrology We will continue to hold Jardiance and diuretics for now an SPEP was ordered in light of her anemiaI agree I also ordered further anemia evaluation as well too platelets are also trending down wordsbut in light of recent surgery sometimes this can be consumptive are stable but she does have severe iron deficiency I will order IV iron So this remains her medical Barrier monitoring her platelets, hemoglobin and creatinine but otherwise were still working on discharge planning for the patient she would be medically ready if things start to stabilize in the next 2 days Chief Complaint: Chief Complaint Patient presents with Fall Seen and examined for the above-stated assessment and plan. The patient was a little bit fatigued today and having pain Review of Systems: No fever or chills. No chest pain or shortness of breath. No nausea or vomiting. No bowel or bladder complains. Exam: BP 154/66 Pulse 65 Temp 37.3 ??C (99.1 ??F) (Oral) Resp 18 Ht 162.6 cm (5' 4 ) Wt 81.1 kg(178 lb 12.7 oz) LMP (LMP Unknown) SpO2 96% BMI 30.69 kg/m?? Intake/Output Summary (Last 24 hours) at 11/30/2024 1839 Last data filed at 11/30/2024 1700 Gross per 24 hour Intake 950 ml Output 1900 ml Net -950 ml BP 154/66 Pulse 65 Temp 37.3 ??C (99.1 ??F) (Oral) Resp 18 Ht 162.6 cm (5' 4 ) Wt 81.1 kg(178 lb 12.7 oz) LMP (LMP Unknown) SpO2 96% BMI 30.69 kg/m?? General: Not in acute distress. Cooperative Sitting in chair Neurological: alert and oriented times three. Grossly non focal throughout my encounter Head, eyes and throat: Atraumatic, Conjunctive clear. Oral mucosa is clear and no exudate Neck: supple. Trachea midline CVS: regular rate and rhythm. No rub or murmur. Lungs: Clear to auscultation bilaterally. No crackles or wheezes. Abdomen: Positive bowel sounds. Soft and nontender. No organomegaly Extremities: edema. No cyanosis she was wearing her sequential compression devices Skin: no visible rashes. No visible lesions. Grossly intact. Current Facility-Administered Medications Medication Dose Route Frequency Provider Last Rate Last Admin acetaminophen (TYLENOL EXTRA STRENGTH) tablet 1,000 mg 1,000 mg oral Q8H Gonzalo Rolle MD 1,000 mg at 11/30/24 1308 amLODIPine (NORVASC) tablet 5 mg 5 mg oral Q12H Rodri Bravo MD atorvastatin (LIPITOR) tablet 80 mg 80 mg oral Daily Yasmin Goodrich MD 80 mg at 11/30/24 0947 buPROPion XL (WELLBUTRIN XL) 24 hr tablet 150 mg 150 mg oral Daily Yasmin Goodrich MD 150 mg at 11/30/24 0945 calcium citrate (CALCITRATE) tablet 400 mg 400 mg oral TID with meals Inocencia Kearney PA-C 400 mg at 11/30/24 1710 carvediloL (COREG) tablet 12.5 mg 12.5 mg oral BID with meals Yasmin Goodrich MD 12.5 mg at 11/30/24 1710 ceFUROxime (CEFTIN) tablet 250 mg 250 mg oral Q12H [facility] Inocencia Kearney PA-C 250 mg at 11/30/24 0942 cholecalciferol (vitamin D3) tablet 2,000 Units 2,000 Units oral Daily Inocencia Kearney PA-C 2,000 Units at 11/30/24 0946 dextrose (GLUTOSE) 40 % gel 15 g 15 g oral PRN Gonzalo Rolle MD dextrose (GLUTOSE) 40 % gel 15 g 15 g oral PRN Yasmin Goodrich MD dextrose 5 % (D5W) infusion 100 mL/hr intravenous Continuous KASSIDYN Gonzalo Rolle MD dextrose 5 % (D5W) infusion 100 mL/hr intravenous Continuous PRN Yasmin Goodrich MD dextrose 50 % in water (D50W) 50% solution 25 mL 25 mL intravenous PRN Gonzalo Rolle MD dextrose 50 % in water (D50W) 50% solution 25 mL 25 mL intravenous PRN Yasmin Goodrich MD glucagon HCL injection 1 mg 1 mg intramuscular PRN Gonzalo Rolle MD glucagon HCL injection 1 mg 1 mg intramuscular PRN Yasmin Goodrich MD heparin (porcine) injection 5,000 Units 5,000 Units subcutaneous Q8H [facility] Inocencia Kearney PA-C 5,000 Units at 11/30/24 1309 HYDROmorphone (DILAUDID) injection 0.25 mg 0.25 mg intravenous Q2H PRN Gonzalo Rolle MD 0.25 mg at 11/26/24 1931 insulin lispro (HumaLOG) injection 1-4 Units 1-4 Units subcutaneous Nightly Gonzalo Rolle MD 1 Units at 11/29/242151 insulin lispro (HumaLOG) injection 2-10 Units 2-10 Units subcutaneous TID with meals Yasmin Goodrich MD6 Units at 11/30/24 171 montelukast (SINGULAIR) tablet 10 mg 10 mg oral Nightly Yasmin Goodrich MD 10 mg at 11/29/242145 ondansetron (PF) (ZOFRAN) injection 4 mg 4 mg intravenous Q4H PRN Gonzalo Rolle MD oxyCODONE (ROXICODONE) immediate release tablet 2.5 mg 2.5 mg oral Q4H PRN Gonzalo Rolle MD 2.5 mg at 11/27/242223 oxyCODONE (ROXICODONE) immediate release tablet 5 mg 5 mg oral Q4H PRN Gonzalo Rolel MD 5 mg at 11/30/24 0844 PARoxetine (PAXIL) tablet 40 mg 40 mg oral Daily Yasmin Goodrich MD 40 mg at 11/30/24 0958 polyethylene glycol (GLYCOLAX) packet 17 g 17 g oral Daily Yasmin Goodrich MD 17 g at 11/30/24 0958 sennosides-docusate sodium (SENOKOT-S) 8.6-50 mg 2 tablet 2 tablet oral Nightly Gonzalo Rolle MD 2 tablet at 11/29/242144 Labs: Recent Results (from the past 48 hours) Bedside Glucose *Place/Obtain serum glucose if >500 per glucometer. Collection Time: 11/28/24 9:09 PM Result Value Ref Range Bedside Glucose (POC) 223 (H) 65 - 99 mg/dL CBC auto differential Collection Time: 11/29/24 5:32 AM Result Value Ref Range WBC 7.0 4 - 11 x10E9/L RBC Count 2.50 (L) 3.8 - 5.2 X10E12/L Hemoglobin 8.2 (L) 11.7 - 15.5 g/dL Hematocrit 24.2 (L) 35 - 47 % MCV 97 80 - 100 fL MCH 32.9 27 - 34 pg MCHC 34.0 32 - 36 g/dL RDW 12.3 11.5 - 15 % Platelet Count 120 (L) 150 - 450 X10E9/L MPV 9.5 7 - 12 fL Neutrophils % 70.5 % Lymphocytes % 12.5 % Monocytes % 10.7 % Eosinophils % 5.8 % Basophils % 0.5 % Neutrophils Absolute (A) 5.0 1.5 - 6.6 10*3/uL Lymphocytes Absolute 0.9 (L) 1.0 - 3.5 10*3/uL Monocytes Absolute 0.8 0.0 - 0.9 10*3/uL Eosinophils Absolute 0.4 0.0 - 0.4 10*3/uL Basophils Absolute 0.0 0.0 - 0.2 10*3/uL Differential Type AUTOMATED DIFFERENTIAL Comprehensive metabolic panel Collection Time: 11/29/24 5:32 AM Result Value Ref Range SODIUM 138 134 - 146 mmol/L POTASSIUM 5.2 (H) 3.5 - 5.0 mmol/L CHLORIDE 103 98 - 109 mmol/L CARBON DIOXIDE 28 22 - 32 mmol/L ANION GAP 7 5 - 15 mmol/L BLOOD UREA NITROGEN 53 (H) 5 - 27 mg/dL CREATININE 2.28 (H) 0.40 - 1.00 mg/dL GLUCOSE 151 (H) 65 - 99 mg/dL CALCIUM 9.5 8.5 - 10.5 mg/dL TOTAL PROTEIN 5.5 (L) 6.0 - 8.0 g/dL ALBUMIN 3.1 (L) 3.2 - 5.3 g/dL ALKALINE PHOSPHATASE 87 39 - 130 U/L AST 56 (H) <=41 U/L ALT 39 (H) <=31 U/L BILIRUBIN,TOTAL 0.4 0.3 - 1.2 mg/dL EGFR Non-Race Dependent 22 (L) >=60 ml/min/1.73sq.m Magnesium Collection Time: 11/29/24 5:32 AM Result Value Ref Range MAGNESIUM 2.2 1.8 - 2.6 mg/dL Iron and TIBC Collection Time: 11/29/24 5:32 AM Result Value Ref Range IRON 12 (L) 50 - 170 ug/dL TRANSFERRIN 195 168 - 336 mg/dL IRON BINDING 273 250 - 425 ug/dL IRON SATURATION 4 (L) 15 - 50 % SATURATION Ferritin Collection Time: 11/29/24 5:32 AM Result Value Ref Range FERRITIN 76 11 - 307 ng/mL Folate Collection Time: 11/29/24 5:32 AM Result Value Ref Range FOLIC ACID 17.9 >5.8 ng/mL Vitamin B12 Collection Time: 11/29/24 5:32 AM Result Value Ref Range VITAMIN B12 314 180 - 914 pg/mL Bedside Glucose *Place/Obtain serum glucose if >500 per glucometer. Collection Time: 11/29/24 8:48 AM Result Value Ref Range Bedside Glucose (POC) 201 (H) 65 - 99 mg/dL Bedside Glucose *Place/Obtain serum glucose if >500 per glucometer. Collection Time: 11/29/24 12:22 PM Result Value Ref Range Bedside Glucose (POC) 239 (H) 65 - 99 mg/dL Bedside Glucose *Place/Obtain serum glucose if >500 per glucometer. Collection Time: 11/29/24 4:34 PM Result Value Ref Range Bedside Glucose (POC) 234 (H) 65 - 99 mg/dL Bedside Glucose *Place/Obtain serum glucose if >500 per glucometer. Collection Time: 11/29/24 9:41 PM Result Value Ref Range Bedside Glucose (POC) 236 (H) 65 - 99 mg/dL CBC auto differential Collection Time: 11/30/24 5:34 AM Result Value Ref Range WBC 8.1 4 - 11 x10E9/L RBC Count 2.53 (L) 3.8 - 5.2 X10E12/L Hemoglobin 8.5 (L) 11.7 - 15.5 g/dL Hematocrit 24.7 (L) 35 - 47 % MCV 98 80 - 100 fL MCH 33.6 27 - 34 pg MCHC 34.4 32 - 36 g/dL RDW 12.4 11.5 - 15 % Platelet Count 136 (L) 150 - 450 X10E9/L MPV 9.8 7 - 12 fL Neutrophils % 80.4 % Lymphocytes % 5.6 % Monocytes % 9.9 % Eosinophils % 3.8 % Basophils % 0.3 % Neutrophils Absolute (A) 6.5 1.5 - 6.6 10*3/uL Lymphocytes Absolute 0.5 (L) 1.0 - 3.5 10*3/uL Monocytes Absolute 0.8 0.0 - 0.9 10*3/uL Eosinophils Absolute 0.3 0.0 - 0.4 10*3/uL Basophils Absolute 0.0 0.0 - 0.2 10*3/uL Differential Type AUTOMATED DIFFERENTIAL Comprehensive metabolic panel Collection Time: 11/30/24 5:34 AM Result Value Ref Range SODIUM 136 134 - 146 mmol/L POTASSIUM 5.0 3.5 - 5.0 mmol/L CHLORIDE 101 98 - 109 mmol/L CARBON DIOXIDE 28 22 - 32 mmol/L ANION GAP 7 5 - 15 mmol/L BLOOD UREA NITROGEN 46 (H) 5 - 27 mg/dL CREATININE 1.86 (H) 0.40 - 1.00 mg/dL GLUCOSE 222 (H) 65 - 99 mg/dL CALCIUM 9.5 8.5 - 10.5 mg/dL TOTAL PROTEIN 5.4 (L) 6.0 - 8.0 g/dL ALBUMIN 3.1 (L) 3.2 - 5.3 g/dL ALKALINE PHOSPHATASE 88 39 - 130 U/L AST 22 <=41 U/L ALT 15 <=31 U/L BILIRUBIN,TOTAL 0.6 0.3 - 1.2 mg/dL EGFR Non-Race Dependent 28 (L) >=60 ml/min/1.73sq.m Magnesium Collection Time: 11/30/24 5:34 AM Result Value Ref Range MAGNESIUM 2.1 1.8 - 2.6 mg/dL Bedside Glucose *Place/Obtain serum glucose if >500 per glucometer. Collection Time: 11/30/24 8:35 AM Result Value Ref Range Bedside Glucose (POC) 199 (H) 65 - 99 mg/dL Bedside Glucose *Place/Obtain serum glucose if >500 per glucometer. Collection Time: 11/30/24 1:08 PM Result Value Ref Range Bedside Glucose (POC) 274 (H) 65 - 99 mg/dL Bedside Glucose *Place/Obtain serum glucose if >500 per glucometer. Collection Time: 11/30/24 5:14 PM Result Value Ref Range Bedside Glucose (POC) 287 (H) 65 - 99 mg/dL Principal Problem: Closed fracture of right hip, initial encounter ([facility]) Imaging Imaging has been reviewed in detail and can be seen in full via EMR. Electronically signed by: Yasmin Goodrich MD Disclaimer Note: To increase efficiency, your physician may have prepared this document using voicerecognition technology. In that case, if a word or phrase is confusing, or does not make sense, this is likely due to a recognition error within the program which was not discovered during the physician ???s review. If you believe an error has occurred, please notify your physician ???s office at your earliest convenience, so we can correct any mistakes. * Rodri Bravo MD - 11/30/2024 10:01 AM EDT Reason for Follow up: JAKI. Assessment Acute kidney injury, likely hemodynamic in nature due to hemodynamic instability. Rule out cardiorenal syndrome. No recent exposure to contrast or NSAIDs. Home medications of Jardiance and Lasix noted. No evidence of obstructive uropathy based on current data. Urine studies are indeterminate but not consistent with a pre-renal state. Chronic kidney disease stage 3b-4. Baseline creatinine 1.6-2.0 mg/dL, GFR likely 30-35 ml/min. Hyperkalemia. Metabolic alkalosis on initial evaluation. Volume Status: Euvolemic to mildly hypervolemic. Evidence includes elevated BNP of 605 pg/mL and mild lower extremity edema ( Non pitting ). Chest X-ray showed no significant pulmonary vascular congestion. Hypertension: BP is elevated. Hemodynamics: History of heart failure with preserved ejection fraction, EF 55-60%. Right subcapital femoral neck fracture, status post hemiarthroplasty. Mechanical fall. Hypovitaminosis D. Diabetes mellitus type 2. Coronary artery disease. Gastroesophageal reflux disease. Anxiety and depression. Plan Monitor off fluids for now. Holding Jardiance. Holding diuretics for now. Will add Amlodipine 5 mg twice daily. Continue Coreg with holding parameters. Checking SPEP and SIF. Low K diet. Avoid nephrotoxins, including NSAIDs and contrast studies. Strict I&O, bladder scan for urinary retention, Daily weight, accurate documentation of urine output. Dose all medications to GFR. Renal chemistry panel monitoring in AM. Please do not hesitate to call with questions. SUBJECTIVE: C/o weakness. Review Of Systems: Constitutional: No fever, chills, lethargy, weakness and wt loss. Cardiac: No chest pain, dyspnea, orthopnea or PND. Chest: No cough, phlegm or wheezing. Abdomen: No nausea, no vomiting or diarrhea. : No hematuria, pyuria, dysuria or flank pain. Extremities: No swelling or joint pains. Scheduled Meds: acetaminophen, 1,000 mg, oral, Q8H amLODIPine, 5 mg, oral, Daily atorvastatin, 80 mg, oral, Daily buPROPion XL, 150 mg, oral, Daily calcium citrate, 400 mg, oral, TID with meals carvediloL, 12.5 mg, oral, BID with meals ceFUROxime, 250 mg, oral, Q12H BOYD cholecalciferol, 2,000 Units, oral, Daily heparin (porcine), 5,000 Units, subcutaneous, Q8H BOYD insulin lispro, 1-4 Units, subcutaneous, Nightly insulin lispro, 2-10 Units, subcutaneous, TID with meals montelukast, 10 mg, oral, Nightly PARoxetine, 40 mg, oral, Daily polyethylene glycol, 17 g, oral, Daily sennosides-docusate sodium, 2 tablet, oral, NightlyContinuous Infusions: dextrose 5 % in water, 100mL/hr dextrose 5 % in water, 100 mL/hr PRN Meds: dextrose dextrose dextrose 5 % in water dextrose 5 % in water dextrose 50 % in water (D50W) dextrose 50 % in water (D50W) glucagon (human recombinant) glucagon (human recombinant) HYDROmorphone ondansetron oxyCODONE oxyCODONE Allergies Allergen Reactions Clindamycin Anaphylaxis and Other (See Comments) Exenatide GI Disturbance and Rash Other Reaction(s): itching Penicillins Facial Swelling, Hives, Itching, Other (See Comments) and Rash Cyclobenzaprine Hives, Itching, Other (See Comments) and Rash Codeine Hives and Other (See Comments) Doxycycline Diarrhea Dye Ethinyl Estradiol Other (See Comments) Iodinated Contrast Media Hives and Other (See Comments) Other Reaction(s): itching/rash Levofloxacin Levonorgestrel Other (See Comments) Liraglutide GI Disturbance Prochlorperazine Other (See Comments) Sucralfate Other (See Comments) Ticagrelor Other Reaction(s): sickness Trazodone GI Disturbance Other Rash Physical Exam: Blood pressure 192/72, pulse 76, temperature 37.3 ??C (99.1 ??F), temperature source Oral, resp. rate 20, height 162.6 cm (5' 4 ), weight 81.1 kg (178 lb 12.7 oz), SpO2 96%. Intake/Output Summary (Last 24 hours) at 11/30/2024 1001 Last data filed at 11/29/2024 1312 Gross per 24 hour Intake 250 ml Output -- Net 250 ml General: Awake, alert, in no distress. HEENT: Atraumatic, normocephalic. Anicteric sclera. [place] and moist oral mucosa. No carotid bruit. No JVD. Chest: Bilateral air entry, clear to auscultation, no wheezing, rhonchi or rales. Cardiovascular: RRR, S1S2, no murmur, rub or gallop. Has lower extremity edema. Abdomen: Soft, non tender to palpation. Active bowel sounds x 4 quadrants. Musculoskeletal: Active ROM x 4 extremities. No cyanosis or clubbing. Integumentary: [place], warm and dry. Free from rash or lesions. Skin turgor normal. 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 Speech clear. Face symmetrical. No tremor. Data: CBC: Lab Results Component Value Date WBC 8.1 11/30/2024 HGB 8.5 (L) 11/30/2024 HCT 24.7 (L) 11/30/2024 MCV 98 11/30/2024 PLT 136 (L) 11/30/2024 BMP: Lab Results Component Value Date K 5.0 11/30/2024 CL 101 11/30/2024 CO2 28 11/30/2024 BUN 46 (H) 11/30/2024 CREATININE 1.86 (H) 11/30/2024 CMP: Lab Results Component Value Date K 5.0 11/30/2024 CL 101 11/30/2024 CO2 28 11/30/2024 BUN 46 (H) 11/30/2024 CREATININE 1.86 (H) 11/30/2024 CALCIUM 9.5 11/30/2024 ALKPHOS 88 11/30/2024 AST 22 11/30/2024 ALT 15 11/30/2024 Hepatic: Lab Results Component Value Date AST 22 11/30/2024 ALT 15 11/30/2024 ALKPHOS 88 11/30/2024 BNP: Lab Results Component Value Date BNP 605 (H) 11/27/2024 Lipids: Lab Results Component Value Date CHOL 156 03/19/2024 HDL 59 03/19/2024 INR: No results found for: INR PTH: Lab Results Component Value Date PTH 116 (H) 11/27/2024 Phosphorus: No results found for: PHOS Ionized Calcium: No components found for: IONCA Magnesium: Lab Results Component Value Date MG 2.1 11/30/2024 Albumin: No components found for: LABALBU Last 3 CK, CKMB, Troponin: Results from last 7 days Lab Units 11/27/24 0542 11/26/24 1634 CPK ISOENZYMES U/L 18* 28 URINE:) Lab Results Component Value Date PROTUR 1,270 (H) 11/28/2024 Radiology: Reviewed. - Rodri Bravo MD 11/30/24 10:01 AM * Yasmin Goodrich MD - 11/29/2024 6:14 PM EDT Internal Medicine Progress Note: 11/29/2024 Patient Name: Elif Shah : 1945 Assessment and Plan: This is a 79-year-old woman who has sustained a hip fracture transferred from [place] for intervention Mild acute kidney injury on CKD with peripheral edema and an elevated BNP Mechanical fall with right femoral neck fracture JAKI vs progressive CKD. Based on patient's creatinine from February 2024 she has CKD stage IIIA but if she has progress this quickly the etiology progression would not be clear unless this is more of a cardiorenal type of picture which could suggest that this is a possibility however her creatinine did slightly stabilized to improve with IV fluids. She does have a elevated BNP I do agree with the obtaining an echocardiogram which I have reordered a renal ultrasound is also pending. Patient does have some proteinuria and WBCs as well as glucose in the urine. CK is normal. Her urine sodium is 49. Reviewing her home meds she is on Jardiance as well as Lasix which were not continued for now I will hold them until she is evaluated by Nephrology Essential hypertension most recent blood pressure noted as the patient currently is in the PACU usebetter control. For now I am only going to restart her Coreg at a reduced dose of 12.5 mg twice a day when I am able can increase that and restart her Imdur and hydralazine and as renal function and vitals allow restart her diuretic. 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 I will see what happens to her renal function before resuming her Paxil. Her QTC is not prolonged Have noticed the consultation note from Nephrology We will continue to hold Jardiance and diuretics for now an SPEP was ordered in light of her anemiaI agree I also ordered further anemia evaluation as well too platelets are also trending down wordsbut in light of recent surgery sometimes this can be consumptive So this remains her medical Barrier monitoring her platelets, hemoglobin and creatinine but otherwise were still working on discharge planning for the patient she would be medically ready if things start to stabilize in the next 2 days Chief Complaint: Chief Complaint Patient presents with Fall Seen and examined for the above-stated assessment and plan. Patient complains of still not really moving bowels I ordered MiraLax scheduled but as I am completing this note the nurse said she had a very large stool Review of Systems: No fever or chills. No chest pain or shortness of breath. No nausea or vomiting. No bowel or bladder complains. Denies any type of generalized pain Exam: BP 168/47 Pulse 55 Temp 36.3 ??C (97.3 ??F) (Oral) Resp 18 Ht 162.6 cm (5' 4 ) Wt 84.4 kg(186 lb 1.1 oz) LMP (LMP Unknown) SpO2 93% BMI 31.94 kg/m?? Intake/Output Summary (Last 24 hours) at 11/29/2024 1814 Last data filed at 11/29/2024 0930 Gross per 24 hour Intake 240 ml Output -- Net 240 ml BP 168/47 Pulse 55 Temp 36.3 ??C (97.3 ??F) (Oral) Resp 18 Ht 162.6 cm (5' 4 ) Wt 84.4 kg(186 lb 1.1 oz) LMP (LMP Unknown) SpO2 93% BMI 31.94 kg/m?? General: Not in acute distress. Cooperative Sitting in chair Neurological: alert and oriented times three. Grossly non focal Head, eyes and throat: Atraumatic, Conjunctive clear. Oral mucosa is clear and no exudate Neck: supple. Trachea midline CVS: regular rate and rhythm. No rub or murmur. Lungs: Clear to auscultation bilaterally. No crackles or wheezes. Abdomen: Positive bowel sounds. Soft and nontender. No organomegaly Extremities: edema. No cyanosis she was wearing her sequential compression devices Skin: no visible rashes. No visible lesions. Grossly intact. Current Facility-Administered Medications Medication Dose Route Frequency Provider Last Rate Last Admin acetaminophen (TYLENOL EXTRA STRENGTH) tablet 1,000 mg 1,000 mg oral Q8H Gonzalo Rolle MD 1,000 mg at 11/29/24 1605 ALPRAZolam (XANAX) tablet 0.25 mg 0.25 mg oral Once PRN Svitlana Hayes PA-C atorvastatin (LIPITOR) tablet 80 mg 80 mg oral Daily Yasmin Goodrich MD 80 mg at 11/29/24 0927 buPROPion XL (WELLBUTRIN XL) 24 hr tablet 150 mg 150 mg oral Daily Yasmin Goodrich MD 150 mg at 11/29/24 0926 calcium citrate (CALCITRATE) tablet 400 mg 400 mg oral TID with meals Inocencia Kearney PA-C 400 mg at 11/29/24 1605 carvediloL (COREG) tablet 12.5 mg 12.5 mg oral BID with meals Yasmin Goodrich MD 12.5 mg at 11/29/24 1605 [START ON 11/30/2024] ceFUROxime (CEFTIN) tablet 250 mg 250 mg oral Q12H [facility] Inocencia Kearney PA-C cholecalciferol (vitamin D3) tablet 2,000 Units 2,000 Units oral Daily Inocencia Kearney PA-C 2,000 Units at 11/29/24 0927 dextrose (GLUTOSE) 40 % gel 15 g 15 g oral PRN Gonzalo Rolle MD dextrose (GLUTOSE) 40 % gel 15 g 15 g oral PRN Yasmin Goodrich MD dextrose 5 % (D5W) infusion 100 mL/hr intravenous Continuous PRN Gonzalo Rolle MD dextrose 5 % (D5W) infusion 100 mL/hr intravenous Continuous PRN Yasmin Goodrich MD dextrose 50 % in water (D50W) 50% solution 25 mL 25 mL intravenous PRN Gonzalo Rolle MD dextrose 50 % in water (D50W) 50% solution 25 mL 25 mL intravenous PRN Yasmin Goodrich MD glucagon HCL injection 1 mg 1 mg intramuscular PRN Gonzalo Rolle MD glucagon HCL injection 1 mg 1 mg intramuscular PRN Yasmin Goodrich MD heparin (porcine) injection 5,000 Units 5,000 Units subcutaneous Q8H [facility] Inocencia Kearney PA-C 5,000 Units at 11/29/24 1407 HYDROmorphone (DILAUDID) injection 0.25 mg 0.25 mg intravenous Q2H PRN Gonzalo Rolle MD 0.25 mg at 11/26/24 1931 insulin lispro (HumaLOG) injection 1-4 Units 1-4 Units subcutaneous Nightly Gonzalo Rolle MD 1 Units at 11/28/242133 insulin lispro (HumaLOG) injection 2-10 Units 2-10 Units subcutaneous TID with meals Yasmin Goodrich MD4 Units at 11/29/24 1651 montelukast (SINGULAIR) tablet 10 mg 10 mg oral Nightly Yasmin Goodrich MD ondansetron (PF) (ZOFRAN) injection 4 mg 4 mg intravenous Q4H PRN Gonzalo Rolle MD oxyCODONE (ROXICODONE) immediate release tablet 2.5 mg 2.5 mg oral Q4H PRN Gonzalo Rolle MD 2.5 mg at 11/27/24 2224 oxyCODONE (ROXICODONE) immediate release tablet 5 mg 5 mg oral Q4H PRN Gonzalo Rolle MD 5 mg at 11/29/24 0939 [START ON 11/30/2024] PARoxetine (PAXIL) tablet 40 mg 40 mg oral Daily Yasmin Goodrich MD polyethylene glycol (GLYCOLAX) packet 17 g 17 g oral Daily Yasmin Goodrich MD sennosides-docusate sodium (SENOKOT-S) 8.6-50 mg 2 tablet 2 tablet oral Nightly Gonzalo Rolle MD 2 tablet at 11/28/24 213 Labs: Recent Results (from the past 48 hours) Bedside Glucose *Place/Obtain serum glucose if >500 per glucometer. Collection Time: 11/27/24 9:35 PM Result Value Ref Range Bedside Glucose (POC) 290 (H) 65 - 99 mg/dL CBC auto differential Collection Time: 11/28/24 7:54 AM Result Value Ref Range WBC 9.1 4 - 11 x10E9/L RBC Count 2.91 (L) 3.8 - 5.2 X10E12/L Hemoglobin 9.3 (L) 11.7 - 15.5 g/dL Hematocrit 28.2 (L) 35 - 47 % MCV 97 80 - 100 fL MCH 32.1 27 - 34 pg MCHC 33.1 32 - 36 g/dL RDW 12.6 11.5 - 15 % Platelet Count 138 (L) 150 - 450 X10E9/L MPV 9.0 7 - 12 fL Neutrophils % 86.7 % Lymphocytes % 4.5 % Monocytes % 8.3 % Eosinophils % 0.3 % Basophils % 0.2 % Neutrophils Absolute (A) 7.9 (H) 1.5 - 6.6 10*3/uL Lymphocytes Absolute 0.4 (L) 1.0 - 3.5 10*3/uL Monocytes Absolute 0.8 0.0 - 0.9 10*3/uL Eosinophils Absolute 0.0 0.0 - 0.4 10*3/uL Basophils Absolute 0.0 0.0 - 0.2 10*3/uL Differential Type AUTOMATED DIFFERENTIAL Comprehensive metabolic panel Collection Time: 11/28/24 7:54 AM Result Value Ref Range SODIUM 136 134 - 146 mmol/L POTASSIUM 5.2 (H) 3.5 - 5.0 mmol/L CHLORIDE 102 98 - 109 mmol/L CARBON DIOXIDE 26 22 - 32 mmol/L ANION GAP 8 5 - 15 mmol/L BLOOD UREA NITROGEN 50 (H) 5 - 27 mg/dL CREATININE 2.45 (H) 0.40 - 1.00 mg/dL GLUCOSE 207 (H) 65 - 99 mg/dL CALCIUM 9.1 8.5 - 10.5 mg/dL TOTAL PROTEIN 5.7 (L) 6.0 - 8.0 g/dL ALBUMIN 3.2 3.2 - 5.3 g/dL ALKALINE PHOSPHATASE 118 39 - 130 U/L AST 261 (H) <=41 U/L ALT 339 (H) <=31 U/L BILIRUBIN,TOTAL 0.4 0.3 - 1.2 mg/dL EGFR Non-Race Dependent 20 (L) >=60 ml/min/1.73sq.m Magnesium Collection Time: 11/28/24 7:54 AM Result Value Ref Range MAGNESIUM 2.3 1.8 - 2.6 mg/dL Bedside Glucose *Place/Obtain serum glucose if >500 per glucometer. Collection Time: 11/28/24 8:09 AM Result Value Ref Range Bedside Glucose (POC) 204 (H) 65 - 99 mg/dL Microalbumin - Albumin: Creatinine Urine Ratio Collection Time: 11/28/24 8:18 AM Specimen: Urine, Indwelling Catheter Result Value Ref Range URINE CREATININE,RDM 83.62 mg/dL MALB/CREAT RATIO 270.3 (H) 0.0 - 30.0 mg/g MICROALBUMIN, URINE 22.6 (H) 0.0 - 1.9 mg/dL Protein creat ratio Collection Time: 11/28/24 8:18 AM Specimen: Urine, Indwelling Catheter Result Value Ref Range URINE PROTEIN, RANDOM (MG/L) 1,270 (H) <120 mg/L URINE CREATININE,RDM 83.62 mg/dL U/PRO/RADIAL SAW OPERATOR RATIO CALC 1.52 (H) <=0.20 Narrative Nephrotic Syndrome is associated with ratios >3.5 Urine Creatinine,random Collection Time: 11/28/24 8:18 AM Specimen: Urine, Indwelling Catheter Result Value Ref Range URINE CREATININE,RDM 85.13 mg/dL Urea random, urine Collection Time: 11/28/24 8:18 AM Specimen: Urine, Indwelling Catheter Result Value Ref Range URINE UREA NITROGEN,RANDOM 607 mg/dL Sodium, urine, random Collection Time: 11/28/24 8:18 AM Specimen: Urine, Indwelling Catheter Result Value Ref Range URINE SODIUM,RANDOM 20 mmol/L Microscopic, urine Collection Time: 11/28/24 8:18 AM Specimen: Urine, Indwelling Catheter Result Value Ref Range MUCOUS Present (A) None R.B.CELLS 1 0 - 5 W.B.CELLS 25 (H) 0 - 5 Urinalysis Collection Time: 11/28/24 8:18 AM Specimen: Urine, Indwelling Catheter Result Value Ref Range COLOR Yellow Yellow TURBIDITY Clear Clear SPECIFIC GRAVITY 1.018 1.003 - 1.035 NITRITE Negative Negative PH,URINE 5.5 5.0 - 8.5 LEUKOCYTE ESTERASE Negative Negative PROTEIN 50 mg/dL (A) Negative KETONES (URINE) Negative Negative UROBILINOGEN <1.1 eu/dL <1.1 eu/dL BILIRUBIN (URINE) Negative Negative BLOOD/HGB Small (A) Negative HYALINE CASTS 1 0 - 2 MUCOUS Present (A) None R.B.CELLS <1 0 - 5 SQUAMOUS EPITHELIUM 1 0 - 5 W.B.CELLS 29 (H) 0 - 5 GLUCOSE (URINE) 500 mg/dL (A) Negative Narrative Urine received without preservative. Delays in transport may affect results. Interpret with caution. A clinical correlation is recommended. Bedside Glucose *Place/Obtain serum glucose if >500 per glucometer. Collection Time: 11/28/24 1:50 PM Result Value Ref Range Bedside Glucose (POC) 234 (H) 65 - 99 mg/dL Bedside Glucose *Place/Obtain serum glucose if >500 per glucometer. Collection Time: 11/28/24 4:34 PM Result Value Ref Range Bedside Glucose (POC) 271 (H) 65 - 99 mg/dL Bedside Glucose *Place/Obtain serum glucose if >500 per glucometer. Collection Time: 11/28/24 9:09 PM Result Value Ref Range Bedside Glucose (POC) 223 (H) 65 - 99 mg/dL CBC auto differential Collection Time: 11/29/24 5:32 AM Result Value Ref Range WBC 7.0 4 - 11 x10E9/L RBC Count 2.50 (L) 3.8 - 5.2 X10E12/L Hemoglobin 8.2 (L) 11.7 - 15.5 g/dL Hematocrit 24.2 (L) 35 - 47 % MCV 97 80 - 100 fL MCH 32.9 27 - 34 pg MCHC 34.0 32 - 36 g/dL RDW 12.3 11.5 - 15 % Platelet Count 120 (L) 150 - 450 X10E9/L MPV 9.5 7 - 12 fL Neutrophils % 70.5 % Lymphocytes % 12.5 % Monocytes % 10.7 % Eosinophils % 5.8 % Basophils % 0.5 % Neutrophils Absolute (A) 5.0 1.5 - 6.6 10*3/uL Lymphocytes Absolute 0.9 (L) 1.0 - 3.5 10*3/uL Monocytes Absolute 0.8 0.0 - 0.9 10*3/uL Eosinophils Absolute 0.4 0.0 - 0.4 10*3/uL Basophils Absolute 0.0 0.0 - 0.2 10*3/uL Differential Type AUTOMATED DIFFERENTIAL Comprehensive metabolic panel Collection Time: 11/29/24 5:32 AM Result Value Ref Range SODIUM 138 134 - 146 mmol/L POTASSIUM 5.2 (H) 3.5 - 5.0 mmol/L CHLORIDE 103 98 - 109 mmol/L CARBON DIOXIDE 28 22 - 32 mmol/L ANION GAP 7 5 - 15 mmol/L BLOOD UREA NITROGEN 53 (H) 5 - 27 mg/dL CREATININE 2.28 (H) 0.40 - 1.00 mg/dL GLUCOSE 151 (H) 65 - 99 mg/dL CALCIUM 9.5 8.5 - 10.5 mg/dL TOTAL PROTEIN 5.5 (L) 6.0 - 8.0 g/dL ALBUMIN 3.1 (L) 3.2 - 5.3 g/dL ALKALINE PHOSPHATASE 87 39 - 130 U/L AST 56 (H) <=41 U/L ALT 39 (H) <=31 U/L BILIRUBIN,TOTAL 0.4 0.3 - 1.2 mg/dL EGFR Non-Race Dependent 22 (L) >=60 ml/min/1.73sq.m Magnesium Collection Time: 11/29/24 5:32 AM Result Value Ref Range MAGNESIUM 2.2 1.8 - 2.6 mg/dL Bedside Glucose *Place/Obtain serum glucose if >500 per glucometer. Collection Time: 11/29/24 8:48 AM Result Value Ref Range Bedside Glucose (POC) 201 (H) 65 - 99 mg/dL Bedside Glucose *Place/Obtain serum glucose if >500 per glucometer. Collection Time: 11/29/24 12:22 PM Result Value Ref Range Bedside Glucose (POC) 239 (H) 65 - 99 mg/dL Bedside Glucose *Place/Obtain serum glucose if >500 per glucometer. Collection Time: 11/29/24 4:34 PM Result Value Ref Range Bedside Glucose (POC) 234 (H) 65 - 99 mg/dL Principal Problem: Closed fracture of right hip, initial encounter ([facility]) Imaging Imaging has been reviewed in detail and can be seen in full via EMR. Electronically signed by: Yasmin Goodrich MD Disclaimer Note: To increase efficiency, your physician may have prepared this document using voicerecognition technology. In that case, if a word or phrase is confusing, or does not make sense, this is likely due to a recognition error within the program which was not discovered during the physician ???s review. If you believe an error has occurred, please notify your physician ???s office at your earliest convenience, so we can correct any mistakes. * Cinthia Quinn RP - 11/29/2024 1:40 PM EDT [facility] Department of Pharmacy Pharmacist to Physician Communication The dose of cefuroxime for surgical prophylaxis has been changed to 250 mg every 12 hours per the [facility] approved renal dosing guidelines, based on an estimated creatinine clearance is 17.8 mL/min (A) (by C-G formula based on SCr of 2.28 mg/dL (H)). Thank you, Cinthia Quinn [facility] * Rodri Bravo MD - 11/29/2024 12:35 PM EDT Reason for Follow up: JAKI. Assessment Acute kidney injury, likely hemodynamic in nature due to hemodynamic instability. Rule out cardiorenal syndrome. No recent exposure to contrast or NSAIDs. Home medications of Jardiance and Lasix noted. No evidence of obstructive uropathy based on current data. Urine studies are indeterminate but not consistent with a pre-renal state. Chronic kidney disease stage 3b-4. Baseline creatinine 1.6-2.0 mg/dL, GFR likely 30-35 ml/min. Hyperkalemia. Metabolic alkalosis on initial evaluation. Volume Status: Euvolemic to mildly hypervolemic. Evidence includes elevated BNP of 605 pg/mL and mild lower extremity edema ( Non pitting ). Chest X-ray showed no significant pulmonary vascular congestion. Hypertension: Stable. Hemodynamics: History of heart failure with preserved ejection fraction. Echocardiogram is pending. Right subcapital femoral neck fracture, status post hemiarthroplasty. Mechanical fall. Hypovitaminosis D. Diabetes mellitus type 2. Coronary artery disease. Gastroesophageal reflux disease. Anxiety and depression. Plan Monitor off fluids for now. Holding Jardiance. Holding diuretics for now. Continue Coreg with holding parameters. Will check SPEP and SIF in AM. Low K diet. Avoid nephrotoxins, including NSAIDs and contrast studies. Strict I&O, bladder scan for urinary retention, Daily weight, accurate documentation of urine output. Dose all medications to GFR. Renal chemistry panel monitoring in AM. Please do not hesitate to call with questions. SUBJECTIVE: C/o operation site pain. Review Of Systems: Constitutional: No fever, chills, lethargy, weakness and wt loss. Cardiac: No chest pain, dyspnea, orthopnea or PND. Chest: No cough, phlegm or wheezing. Abdomen: No nausea, no vomiting or diarrhea. : No hematuria, pyuria, dysuria or flank pain. Extremities: No swelling or joint pains. Scheduled Meds: acetaminophen, 1,000 mg, oral, Q8H atorvastatin, 80 mg, oral, Daily buPROPion XL, 150 mg, oral, Daily calcium citrate, 400 mg, oral, TID with meals carvediloL, 12.5 mg, oral, BID with meals ceFUROxime, 500 mg, oral, Q12H BOYD cholecalciferol, 2,000 Units, oral, Daily ergocalciferol, 50,000 Units, oral, Weekly heparin (porcine), 5,000 Units, subcutaneous, Q8H BOYD insulin lispro, 1-4 Units, subcutaneous, Nightly insulin lispro, 2-10 Units, subcutaneous, TID with meals sennosides-docusate sodium, 2 tablet, oral, NightlyContinuous Infusions: dextrose 5 % in water, 100mL/hr dextrose 5 % in water, 100 mL/hr PRN Meds: ALPRAZolam dextrose dextrose dextrose 5 % in water dextrose 5 % in water dextrose 50 % in water (D50W) dextrose 50 % in water (D50W) glucagon (human recombinant) glucagon (human recombinant) HYDROmorphone ondansetron oxyCODONE oxyCODONE Allergies Allergen Reactions Clindamycin Anaphylaxis and Other (See Comments) Exenatide GI Disturbance and Rash Other Reaction(s): itching Penicillins Facial Swelling, Hives, Itching, Other (See Comments) and Rash Cyclobenzaprine Hives, Itching, Other (See Comments) and Rash Codeine Hives and Other (See Comments) Doxycycline Diarrhea Dye Ethinyl Estradiol Other (See Comments) Iodinated Contrast Media Hives and Other (See Comments) Other Reaction(s): itching/rash Levofloxacin Levonorgestrel Other (See Comments) Liraglutide GI Disturbance Prochlorperazine Other (See Comments) Sucralfate Other (See Comments) Ticagrelor Other Reaction(s): sickness Trazodone GI Disturbance Other Rash Physical Exam: Blood pressure 168/47, pulse 55, temperature 36.3 ??C (97.3 ??F), temperature source Oral, resp. rate 18, height 162.6 cm (5' 4 ), weight 84.4 kg (186 lb 1.1 oz), SpO2 93%. Intake/Output Summary (Last 24 hours) at 11/29/2024 1235 Last data filed at 11/29/2024 0930 Gross per 24 hour Intake 240 ml Output -- Net 240 ml General: Awake, alert, in no distress. HEENT: Atraumatic, normocephalic. Anicteric sclera. [place] and moist oral mucosa. No carotid bruit. No JVD. Chest: Bilateral air entry, clear to auscultation, no wheezing, rhonchi or rales. Cardiovascular: RRR, S1S2, no murmur, rub or gallop. Has lower extremity edema. Abdomen: Soft, non tender to palpation. Active bowel sounds x 4 quadrants. Musculoskeletal: Active ROM x 4 extremities. No cyanosis or clubbing. Integumentary: [place], warm and dry. Free from rash or lesions. Skin turgor normal. 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 Speech clear. Face symmetrical. No tremor. Data: CBC: Lab Results Component Value Date WBC 7.0 11/29/2024 HGB 8.2 (L) 11/29/2024 HCT 24.2 (L) 11/29/2024 MCV 97 11/29/2024 PLT 120 (L) 11/29/2024 BMP: Lab Results Component Value Date K 5.2 (H) 11/29/2024 CL 103 11/29/2024 CO2 28 11/29/2024 BUN 53 (H) 11/29/2024 CREATININE 2.28 (H) 11/29/2024 CMP: Lab Results Component Value Date K 5.2 (H) 11/29/2024 CL 103 11/29/2024 CO2 28 11/29/2024 BUN 53 (H) 11/29/2024 CREATININE 2.28 (H) 11/29/2024 CALCIUM 9.5 11/29/2024 ALKPHOS 87 11/29/2024 AST 56 (H) 11/29/2024 ALT 39 (H) 11/29/2024 Hepatic: Lab Results Component Value Date AST 56 (H) 11/29/2024 ALT 39 (H) 11/29/2024 ALKPHOS 87 11/29/2024 BNP: Lab Results Component Value Date BNP 605 (H) 11/27/2024 Lipids: Lab Results Component Value Date CHOL 156 03/19/2024 HDL 59 03/19/2024 INR: No results found for: INR PTH: Lab Results Component Value Date PTH 116 (H) 11/27/2024 Phosphorus: No results found for: PHOS Ionized Calcium: No components found for: IONCA Magnesium: Lab Results Component Value Date MG 2.2 11/29/2024 Albumin: No components found for: LABALBU Last 3 CK, CKMB, Troponin: Results from last 7 days Lab Units 11/27/24 0542 11/26/24 1634 CPK ISOENZYMES U/L 18* 28 URINE:) Lab Results Component Value Date PROTUR 1,270 (H) 11/28/2024 Radiology: Reviewed. - Rodri Bravo MD 11/29/24 12:35 PM * Kirby Andersen MD - 11/29/2024 8:08 AM EDT Orthopedic Progress Note Subjective No acute events overnight. Reports some continued pain within the right hip. Says she was able to mobilize with therapy yesterday. Objective BP 134/50 Pulse 56 Temp 36.4 ??C (97.6 ??F) (Oral) Resp 16 Ht 162.6 cm (5' 4 ) Wt 84.4 kg(186 lb 1.1 oz) LMP (LMP Unknown) SpO2 100% BMI 31.94 kg/m?? O2 Device: Nasal cannula Lab Results Component Value Date WBC 7.0 11/29/2024 HGB 8.2 (L) 11/29/2024 HCT 24.2 (L) 11/29/2024 MCV 97 11/29/2024 PLT 120 (L) 11/29/2024 Lab Results Component Value Date GLU 151 (H) 11/29/2024 CALCIUM 9.5 11/29/2024 K 5.2 (H) 11/29/2024 CO2 28 11/29/2024 BUN 53 (H) 11/29/2024 CREATININE 2.28 (H) 11/29/2024 No results found for: INR , PROTIME General: Awake, alert, in no acute distress. Pleasant and cooperative with the exam. Right lower extremity: Surgical dressing in place is clean, dry, and intact. No palpable hematoma around the surgical area. Full motor and sensory function intact distally. Leg lengths appear equivalent. Assessment/Plan : Elif Shah is a 79 yrs female s/p right hip hemiarthroplasty for femoralneck fracture 11/27/2024 PLAN -weightbearing as tolerated right lower extremity, no hip precautions required -PT/OT - mobilization and transfers -calcium and vitamin-D supplementation -Ice/elevation -postoperative Ancef completed, continue one-week of prophylactic Ceftin -DVT ppx: Currently heparin q.8 hours, recommend at least aspirin 81 mg twice daily for 4 weeks at discharge -discharge planning Kirby Andersen MD 8:08 AM 11/29/2024 * Yasmin Goodrich MD - 11/28/2024 3:54 PM EDT Internal Medicine Progress Note: 11/28/2024 Patient Name: Elif Shah : 1945 Assessment and Plan: This is a 79-year-old woman who has sustained a hip fracture transferred from [place] for intervention Mild acute kidney injury on CKD with peripheral edema and an elevated BNP Mechanical fall with right femoral neck fracture JAKI vs progressive CKD. Based on patient's creatinine from February 2024 she has CKD stage IIIA but if she has progress this quickly the etiology progression would not be clear unless this is more of a cardiorenal type of picture which could suggest that this is a possibility however her creatinine did slightly stabilized to improve with IV fluids. She does have a elevated BNP I do agree with the obtaining an echocardiogram which I have reordered a renal ultrasound is also pending. Patient does have some proteinuria and WBCs as well as glucose in the urine. CK is normal. Her urine sodium is 49. Reviewing her home meds she is on Jardiance as well as Lasix which were not continued for now I will hold them until she is evaluated by Nephrology Essential hypertension most recent blood pressure noted as the patient currently is in the PACU usebetter control. For now I am only going to restart her Coreg at a reduced dose of 12.5 mg twice a day when I am able can increase that and restart her Imdur and hydralazine and as renal function and vitals allow restart her diuretic. 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 I will see what happens to her renal function before resuming her Paxil. Her QTC is not prolonged Discharge We will take out her Haley catheter monitor for any urinary retention repeat a UA appreciate input and plan from Nephrology Check biochemical data in the morning SNF work on this part appreciate social work/Care navigation Renal ultrasound is completed and reviewed Chest x-ray ordered from yesterday by Nephrology is reviewed as well too As well awaiting echocardiogram Medically Ready for Discharge: Anticipated Tomorrow But this is provided insurance authorization comes through, echocardiogram is completed, renal function stabilized/ improved and cleared by Nephrology Chief Complaint: Chief Complaint Patient presents with Fall Seen and examined for the above-stated assessment and plan. It sounds like the patient has been having chronic urinary symptoms I do not really think she couldhave had chronic urinary symptoms and have had a UTI for this long and her original UA did not seemconsistent with a UTI but after we remove Haley we can repeat UA discussed this with the patient's 1 of her nurses was present in the room Review of Systems: No fever or chills. No chest pain or shortness of breath. No nausea or vomiting. No bowel or bladder complains. Denies any type of generalized pain Exam: BP 123/44 Comment: RN notified Pulse 56 Temp 36.8 ??C (98.2 ??F) (Oral) Resp 14 Ht 162.6 cm(5' 4 ) Wt 82.1 kg (181 lb) LMP (LMP Unknown) SpO2 100% BMI 31.07 kg/m?? Intake/Output Summary (Last 24 hours) at 11/28/2024 1554 Last data filed at 11/28/2024 1200 Gross per 24 hour Intake 250 ml Output 520 ml Net -270 ml BP 123/44 Comment: RN notified Pulse 56 Temp 36.8 ??C (98.2 ??F) (Oral) Resp 14 Ht 162.6 cm(5' 4 ) Wt 82.1 kg (181 lb) LMP (LMP Unknown) SpO2 100% BMI 31.07 kg/m?? General: Not in acute distress. Cooperative Neurological: alert and oriented times three. Grossly non focal Head, eyes and throat: Atraumatic, Conjunctive clear. Oral mucosa is clear and no exudate Neck: supple. Trachea midline CVS: regular rate and rhythm. No rub or murmur. Lungs: Clear to auscultation bilaterally. No crackles or wheezes. Abdomen: Positive bowel sounds. Soft and nontender. No organomegaly Extremities: edema. No cyanosis she was wearing her sequential compression devices Skin: no visible rashes. No visible lesions. Grossly intact. Current Facility-Administered Medications Medication Dose Route Frequency Provider Last Rate Last Admin acetaminophen (TYLENOL EXTRA STRENGTH) tablet 1,000 mg 1,000 mg oral Q8H Gonzalo Rolle MD 1,000 mg at 11/28/24 0827 atorvastatin (LIPITOR) tablet 80 mg 80 mg oral Daily Yasmin Goodrich MD 80 mg at 11/28/24 0827 buPROPion XL (WELLBUTRIN XL) 24 hr tablet 150 mg 150 mg oral Daily Yasmin Goodrich MD 150 mg at 11/28/24 0827 calcium citrate (CALCITRATE) tablet 400 mg 400 mg oral TID with meals Inocencia Kearney PA-C 400 mg at 11/28/24 1400 carvediloL (COREG) tablet 12.5 mg 12.5 mg oral BID with meals Yasmin Goodrich MD 12.5 mg at 11/28/24 0827 ceFUROxime (CEFTIN) tablet 500 mg 500 mg oral Q12H [facility] Inocencia Kearney PA-C cholecalciferol (vitamin D3) tablet 2,000 Units 2,000 Units oral Daily Inocencia Kearney PA-C 2,000 Units at 11/28/24 0827 dextrose (GLUTOSE) 40 % gel 15 g 15 g oral PRN Gonzalo Rolle MD dextrose 5 % (D5W) infusion 100 mL/hr intravenous Continuous PRN Gonzalo Rolle MD dextrose 50 % in water (D50W) 50% solution 25 mL 25 mL intravenous PRN Gonzalo Rolle MD ergocalciferol (DRISDOL) capsule 50,000 Units 50,000 Units oral Weekly Inocencia Kearney PA-C 50,000Units at 11/28/24 0833 glucagon HCL injection 1 mg 1 mg intramuscular PRN Gonzalo Rolle MD heparin (porcine) injection 5,000 Units 5,000 Units subcutaneous Q8H [facility] Inocencia Kearney PA-C 5,000 Units at 11/28/24 1400 HYDROmorphone (DILAUDID) injection 0.25 mg 0.25 mg intravenous Q2H PRN Gonzalo Rolle MD 0.25 mg at 11/26/24 1931 insulin lispro (HumaLOG) injection 1-4 Units 1-4 Units subcutaneous Nightly Gonzalo Rolle MD 2 Units at 11/27/24 2201 insulin lispro (HumaLOG) injection 1-5 Units 1-5 Units subcutaneous TID with meals Gonzalo Rolle MD 2 Units at 11/28/24 1400 ondansetron (PF) (ZOFRAN) injection 4 mg 4 mg intravenous Q4H PRN Gonzalo Rolle MD oxyCODONE (ROXICODONE) immediate release tablet 2.5 mg 2.5 mg oral Q4H PRN Gonzalo Rolle MD 2.5 mg at 11/27/24 2224 oxyCODONE (ROXICODONE) immediate release tablet 5 mg 5 mg oral Q4H PRN Gonzalo Rolle MD 5 mg at 11/26/24 2250 perflutren lipid microspheres (DEFINITY) dilution injection 1.43 mg/10 mL 2 mL intravenous PRN Yasmin Goodrich MD 2 mL at 11/28/24 1015 sennosides-docusate sodium (SENOKOT-S) 8.6-50 mg 2 tablet 2 tablet oral Nightly Pattishaheen Gely Rolle MD 2 tablet at 11/27/24 2200 sodium chloride 0.9 % flush 10 mL 10 mL intravenous Once PRN Yasmin Goodrich MD 10 mL at 11/28/24 1016 Labs: Recent Results (from the past 48 hours) CBC auto differential Collection Time: 11/26/24 4:34 PM Result Value Ref Range WBC 12.4 (H) 4 - 11 x10E9/L RBC Count 3.62 (L) 3.8 - 5.2 X10E12/L Hemoglobin 11.8 11.7 - 15.5 g/dL Hematocrit 34.6 (L) 35 - 47 % MCV 96 80 - 100 fL MCH 32.5 27 - 34 pg MCHC 34.0 32 - 36 g/dL RDW 12.6 11.5 - 15 % Platelet Count 204 150 - 450 X10E9/L MPV 9.1 7 - 12 fL Neutrophils % 84.6 % Lymphocytes % 6.8 % Monocytes % 7.7 % Eosinophils % 0.6 % Basophils % 0.3 % Neutrophils Absolute (A) 10.5 (H) 1.5 - 6.6 10*3/uL Lymphocytes Absolute 0.8 (L) 1.0 - 3.5 10*3/uL Monocytes Absolute 1.0 (H) 0.0 - 0.9 10*3/uL Eosinophils Absolute 0.1 0.0 - 0.4 10*3/uL Basophils Absolute 0.0 0.0 - 0.2 10*3/uL Differential Type AUTOMATED DIFFERENTIAL Basic Metabolic Panel Collection Time: 11/26/24 4:34 PM Result Value Ref Range SODIUM 141 134 - 146 mmol/L POTASSIUM 4.3 3.5 - 5.0 mmol/L CHLORIDE 103 98 - 109 mmol/L CARBON DIOXIDE 27 22 - 32 mmol/L ANION GAP 11 5 - 15 mmol/L BLOOD UREA NITROGEN 50 (H) 5 - 27 mg/dL CREATININE 2.57 (H) 0.40 - 1.00 mg/dL GLUCOSE 151 (H) 65 - 99 mg/dL CALCIUM 9.3 8.5 - 10.5 mg/dL EGFR Non-Race Dependent 19 (L) >=60 ml/min/1.73sq.m Prealbumin Collection Time: 11/26/24 4:34 PM Result Value Ref Range PREALBUMIN 29 18 - 45 mg/dL Type and screen(includes indirect vikas) Collection Time: 11/26/24 4:34 PM Result Value Ref Range ABO A RH Positive Antibody Screen Negative Vitamin D 25 hydroxy Collection Time: 11/26/24 4:34 PM Result Value Ref Range VITAMIN D 25 HYD TOT 27.1 (L) 30.0 - 100.0 ng/mL Narrative Vitamin D status 25 OH Vitamin D Deficiency <20 ng/mL Insufficiency 20-29 ng/mL Sufficiency 30-100 ng/mL Toxicity >100 ng/mL NOTE: A pediatric reference range has not been established by the driller helper of this kit. The [place] [employer] recommends a Vitamin D level of = or >20ng/mL in infants and children. Ferritin Collection Time: 11/26/24 4:34 PM Result Value Ref Range FERRITIN 32 11 - 307 ng/mL Folate Collection Time: 11/26/24 4:34 PM Result Value Ref Range FOLIC ACID >25.0 >5.8 ng/mL Iron and TIBC Collection Time: 11/26/24 4:34 PM Result Value Ref Range IRON 58 50 - 170 ug/dL TRANSFERRIN 260 168 - 336 mg/dL IRON BINDING 364 250 - 425 ug/dL IRON SATURATION 16 15 - 50 % SATURATION Reticulocytes Collection Time: 11/26/24 4:34 PM Result Value Ref Range Reticulocyte Count 1.5 0.4 - 2.2 % Vitamin B12 Collection Time: 11/26/24 4:34 PM Result Value Ref Range VITAMIN B12 275 180 - 914 pg/mL CK Total Collection Time: 11/26/24 4:34 PM Result Value Ref Range CPK 28 24 - 170 U/L B-type natriuretic peptide Collection Time: 11/26/24 4:34 PM Result Value Ref Range BNP 382 (H) <=100 pg/mL Urinalysis Collection Time: 11/26/24 4:45 PM Specimen: Urine Result Value Ref Range COLOR Yellow Yellow TURBIDITY Hazy (A) Clear SPECIFIC GRAVITY 1.010 1.003 - 1.035 NITRITE Negative Negative PH,URINE 6.5 5.0 - 8.5 LEUKOCYTE ESTERASE Small (A) Negative PROTEIN 70 mg/dL (A) Negative KETONES (URINE) Negative Negative UROBILINOGEN <1.1 eu/dL <1.1 eu/dL BILIRUBIN (URINE) Negative Negative BLOOD/HGB Negative Negative R.B.CELLS <1 0 - 5 W.B.CELLS 8 (H) 0 - 5 GLUCOSE (URINE) >1000 mg/dL (A) Negative Narrative Urine received without preservative - delays in transport may affect results. Interpret with caution and clinical correlation is recommended. Sodium, urine, random Collection Time: 11/26/24 4:45 PM Specimen: Urine Result Value Ref Range URINE SODIUM,RANDOM 49 mmol/L Urine Creatinine,Rdm Collection Time: 11/26/24 4:45 PM Specimen: Urine Result Value Ref Range URINE CREATININE,RDM 72.60 mg/dL Urea random, urine Collection Time: 11/26/24 4:45 PM Specimen: Urine Result Value Ref Range URINE UREA NITROGEN,RANDOM 572 mg/dL Bedside Glucose *Place/Obtain serum glucose if >500 per glucometer. Collection Time: 11/26/24 5:46 PM Result Value Ref Range Bedside Glucose (POC) 122 (H) 65 - 99 mg/dL Bedside Glucose *Place/Obtain serum glucose if >500 per glucometer. Collection Time: 11/26/24 9:20 PM Result Value Ref Range Bedside Glucose (POC) 231 (H) 65 - 99 mg/dL Parathyroid Hormone, intact Collection Time: 11/27/24 5:42 AM Result Value Ref Range PTH INTACT 116 (H) 12 - 88 pg/mL Basic Metabolic Panel Collection Time: 11/27/24 5:42 AM Result Value Ref Range SODIUM 140 134 - 146 mmol/L POTASSIUM 4.5 3.5 - 5.0 mmol/L CHLORIDE 105 98 - 109 mmol/L CARBON DIOXIDE 28 22 - 32 mmol/L ANION GAP 7 5 - 15 mmol/L BLOOD UREA NITROGEN 49 (H) 5 - 27 mg/dL CREATININE 2.53 (H) 0.40 - 1.00 mg/dL GLUCOSE 151 (H) 65 - 99 mg/dL CALCIUM 9.1 8.5 - 10.5 mg/dL EGFR Non-Race Dependent 19 (L) >=60 ml/min/1.73sq.m Vitamin D 25 hydroxy Collection Time: 11/27/24 5:42 AM Result Value Ref Range VITAMIN D 25 HYD TOT 23.1 (L) 30.0 - 100.0 ng/mL Narrative Vitamin D status 25 OH Vitamin D Deficiency <20 ng/mL Insufficiency 20-29 ng/mL Sufficiency 30-100 ng/mL Toxicity >100 ng/mL NOTE: A pediatric reference range has not been established by the driller helper of this kit. The [place] [employer] recommends a Vitamin D level of = or >20ng/mL in infants and children. CBC without diff Collection Time: 11/27/24 5:42 AM Result Value Ref Range WBC 8.1 4 - 11 x10E9/L RBC Count 3.30 (L) 3.8 - 5.2 X10E12/L Hemoglobin 11.0 (L) 11.7 - 15.5 g/dL Hematocrit 32.1 (L) 35 - 47 % MCV 97 80 - 100 fL MCH 33.3 27 - 34 pg MCHC 34.2 32 - 36 g/dL RDW 12.6 11.5 - 15 % Platelet Count 147 (L) 150 - 450 X10E9/L MPV 9.0 7 - 12 fL Prealbumin Collection Time: 11/27/24 5:42 AM Result Value Ref Range PREALBUMIN 27 18 - 45 mg/dL Uric acid Collection Time: 11/27/24 5:42 AM Result Value Ref Range URIC ACID 6.6 2.6 - 7.2 mg/dL B-type natriuretic peptide Collection Time: 11/27/24 5:42 AM Result Value Ref Range BNP 605 (H) <=100 pg/mL CK Total Collection Time: 11/27/24 5:42 AM Result Value Ref Range CPK 18 (L) 24 - 170 U/L Phosphorus Collection Time: 11/27/24 5:42 AM Result Value Ref Range PHOSPHORUS 4.3 2.4 - 4.9 mg/dL Albumin Collection Time: 11/27/24 5:42 AM Result Value Ref Range ALBUMIN 3.4 3.2 - 5.3 g/dL Bedside Glucose *Place/Obtain serum glucose if >500 per glucometer. Collection Time: 11/27/24 8:40 AM Result Value Ref Range Bedside Glucose (POC) 147 (H) 65 - 99 mg/dL Bedside Glucose *Place/Obtain serum glucose if >500 per glucometer. Collection Time: 11/27/24 10:22 AM Result Value Ref Range Bedside Glucose (POC) 174 (H) 65 - 99 mg/dL Bedside Glucose *Place/Obtain serum glucose if >500 per glucometer. Collection Time: 11/27/24 5:00 PM Result Value Ref Range Bedside Glucose (POC) 245 (H) 65 - 99 mg/dL Bedside Glucose *Place/Obtain serum glucose if >500 per glucometer. Collection Time: 11/27/24 9:35 PM Result Value Ref Range Bedside Glucose (POC) 290 (H) 65 - 99 mg/dL CBC auto differential Collection Time: 11/28/24 7:54 AM Result Value Ref Range WBC 9.1 4 - 11 x10E9/L RBC Count 2.91 (L) 3.8 - 5.2 X10E12/L Hemoglobin 9.3 (L) 11.7 - 15.5 g/dL Hematocrit 28.2 (L) 35 - 47 % MCV 97 80 - 100 fL MCH 32.1 27 - 34 pg MCHC 33.1 32 - 36 g/dL RDW 12.6 11.5 - 15 % Platelet Count 138 (L) 150 - 450 X10E9/L MPV 9.0 7 - 12 fL Neutrophils % 86.7 % Lymphocytes % 4.5 % Monocytes % 8.3 % Eosinophils % 0.3 % Basophils % 0.2 % Neutrophils Absolute (A) 7.9 (H) 1.5 - 6.6 10*3/uL Lymphocytes Absolute 0.4 (L) 1.0 - 3.5 10*3/uL Monocytes Absolute 0.8 0.0 - 0.9 10*3/uL Eosinophils Absolute 0.0 0.0 - 0.4 10*3/uL Basophils Absolute 0.0 0.0 - 0.2 10*3/uL Differential Type AUTOMATED DIFFERENTIAL Comprehensive metabolic panel Collection Time: 11/28/24 7:54 AM Result Value Ref Range SODIUM 136 134 - 146 mmol/L POTASSIUM 5.2 (H) 3.5 - 5.0 mmol/L CHLORIDE 102 98 - 109 mmol/L CARBON DIOXIDE 26 22 - 32 mmol/L ANION GAP 8 5 - 15 mmol/L BLOOD UREA NITROGEN 50 (H) 5 - 27 mg/dL CREATININE 2.45 (H) 0.40 - 1.00 mg/dL GLUCOSE 207 (H) 65 - 99 mg/dL CALCIUM 9.1 8.5 - 10.5 mg/dL TOTAL PROTEIN 5.7 (L) 6.0 - 8.0 g/dL ALBUMIN 3.2 3.2 - 5.3 g/dL ALKALINE PHOSPHATASE 118 39 - 130 U/L AST 261 (H) <=41 U/L ALT 339 (H) <=31 U/L BILIRUBIN,TOTAL 0.4 0.3 - 1.2 mg/dL EGFR Non-Race Dependent 20 (L) >=60 ml/min/1.73sq.m Magnesium Collection Time: 11/28/24 7:54 AM Result Value Ref Range MAGNESIUM 2.3 1.8 - 2.6 mg/dL Bedside Glucose *Place/Obtain serum glucose if >500 per glucometer. Collection Time: 11/28/24 8:09 AM Result Value Ref Range Bedside Glucose (POC) 204 (H) 65 - 99 mg/dL Microalbumin - Albumin: Creatinine Urine Ratio Collection Time: 11/28/24 8:18 AM Specimen: Urine, Indwelling Catheter Result Value Ref Range URINE CREATININE,RDM 83.62 mg/dL MALB/CREAT RATIO 270.3 (H) 0.0 - 30.0 mg/g MICROALBUMIN, URINE 22.6 (H) 0.0 - 1.9 mg/dL Protein creat ratio Collection Time: 11/28/24 8:18 AM Specimen: Urine, Indwelling Catheter Result Value Ref Range URINE PROTEIN, RANDOM (MG/L) 1,270 (H) <120 mg/L URINE CREATININE,RDM 83.62 mg/dL U/PRO/RADIAL SAW OPERATOR RATIO CALC 1.52 (H) <=0.20 Narrative Nephrotic Syndrome is associated with ratios >3.5 Urine Creatinine,random Collection Time: 11/28/24 8:18 AM Specimen: Urine, Indwelling Catheter Result Value Ref Range URINE CREATININE,RDM 85.13 mg/dL Urea random, urine Collection Time: 11/28/24 8:18 AM Specimen: Urine, Indwelling Catheter Result Value Ref Range URINE UREA NITROGEN,RANDOM 607 mg/dL Sodium, urine, random Collection Time: 11/28/24 8:18 AM Specimen: Urine, Indwelling Catheter Result Value Ref Range URINE SODIUM,RANDOM 20 mmol/L Microscopic, urine Collection Time: 11/28/24 8:18 AM Specimen: Urine, Indwelling Catheter Result Value Ref Range MUCOUS Present (A) None R.B.CELLS 1 0 - 5 W.B.CELLS 25 (H) 0 - 5 Bedside Glucose *Place/Obtain serum glucose if >500 per glucometer. Collection Time: 11/28/24 1:50 PM Result Value Ref Range Bedside Glucose (POC) 234 (H) 65 - 99 mg/dL Principal Problem: Closed fracture of right hip, initial encounter ([facility]) Imaging Imaging has been reviewed in detail and can be seen in full via EMR. Electronically signed by: Yasmin Goodrich MD Disclaimer Note: To increase efficiency, your physician may have prepared this document using voicerecognition technology. In that case, if a word or phrase is confusing, or does not make sense, this is likely due to a recognition error within the program which was not discovered during the physician ???s review. If you believe an error has occurred, please notify your physician ???s office at your earliest convenience, so we can correct any mistakes. * Kirby Andersen MD - 11/28/2024 3:12 PM EDT Images from the original note were not included. Orthopedic Progress Note Subjective Patient resting in chair at bedside. Pain about the right hip overall well- controlled. Patient reports that she did work with physical therapy today and she was able to take a few steps with the assistance of a walker, although did not place full weight to the right lower extremity when doing so Objective BP 123/44 Comment: RN notified Pulse 56 Temp 36.8 ??C (98.2 ??F) (Oral) Resp 14 Ht 162.6 cm(5' 4 ) Wt 82.1 kg (181 lb) LMP (LMP Unknown) SpO2 100% BMI 31.07 kg/m?? O2 Device: Nasal cannula General: Alert, cooperative, no acute distress Right LE: Surgical incision with Aquacel dressing in place, clean dry intact without evidence of strike through. SILT s/s/sp/dp/pt, + motor fxn EHL, FHL, DF, PF. Comparments & calves soft and compressible Palpable pulses with BCR x 5 LABS Lab Results Component Value Date WBC 9.1 11/28/2024 HGB 9.3 (L) 11/28/2024 HCT 28.2 (L) 11/28/2024 MCV 97 11/28/2024 PLT 138 (L) 11/28/2024 No results found for: CRP No results found for: SEDRATE Lab Results Component Value Date GLU 234 (H) 11/28/2024 CALCIUM 9.1 11/28/2024 K 5.2 (H) 11/28/2024 CO2 26 11/28/2024 BUN 50 (H) 11/28/2024 CREATININE 2.45 (H) 11/28/2024 Microbiology Results No results found for the last 168 hours. Assessment/Plan Elif Shah is a 79 yrs female s/p right hip hemiarthroplasty PLAN The patient is permitted to weightbear as tolerated to the right lower extremity, no specific hip precautions are required 24 hours Ancef follow up by Ceftin 500 mg twice daily x7 days for perisurgical prophylaxis Aquacel dressing may remain in place. If dressing becomes saturated may remove and replace another Aquacel dressing or apply simple dry dressing which may be changed daily and as needed for saturation PT/OT - gait training, transfer training, mobilization DVT prophylaxis - heparin subQ, SCDs, mobilization. Upon discharge we would recommend at least aspirin 81 mg twice daily x30 days for DVT prophylaxis. Ice/elevation Pain well controlled Bone health with calcium and vitamin D supplementation as able Dispo planning - noted PT/OT recommendations for [facility] Okay for discharge from orthopedic standpoint once medically stable Inocencia Kearney PA-C LOS: 2 days Inocencia Kearney PA-C 11/28/24 1517 Inocencia Kearney PA-C 11/28/24 1518 IKirby MD, personally performed the face to face diagnostic evaluation on this patient. I have reviewed the MONIKA's History, Exam, and MDM and agree with the assessment and plan as written. Kirby Andersen MD * Yasmin Goodrich MD - 11/27/2024 3:58 PM EDT Internal Medicine Progress Note: 11/27/2024 Patient Name: Elif Shah : 1945 Assessment and Plan: This is a 79-year-old woman who has sustained a hip fracture transferred from [place] for intervention Mild acute kidney injury on CKD with peripheral edema and an elevated BNP Mechanical fall with right femoral neck fracture JAKI vs progressive CKD. Based on patient's creatinine from February 2024 she has CKD stage IIIA but if she has progress this quickly the etiology progression would not be clear unless this is more of a cardiorenal type of picture which could suggest that this is a possibility however her creatinine did slightly stabilized to improve with IV fluids. She does have a elevated BNP I do agree with the obtaining an echocardiogram which I have reordered a renal ultrasound is also pending. Patient does have some proteinuria and WBCs as well as glucose in the urine. CK is normal. Her urine sodium is 49. Reviewing her home meds she is on Jardiance as well as Lasix which were not continued for now I will hold them until she is evaluated by Nephrology Essential hypertension most recent blood pressure noted as the patient currently is in the PACU usebetter control. For now I am only going to restart her Coreg at a reduced dose of 12.5 mg twice a day when I am able can increase that and restart her Imdur and hydralazine and as renal function and vitals allow restart her diuretic. 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 I will see what happens to her renal function before resuming her Paxil. Her QTC is not prolonged Chief Complaint: Chief Complaint Patient presents with Fall Seen and examined for the above-stated assessment and plan. The patient was seen while she was about to be transported out of her room to go to the preop area Her daughter was present at bedside and her daughter states that she has some allergic reaction to 1 of the anesthetic medications did not from her to request to speak to the anesthesiologist prior to surgery which wanted earliest supposed to happen Review of Systems: No fever or chills. No chest pain or shortness of breath. No nausea or vomiting. No bowel or bladder complains. Denies any type of generalized pain Exam: BP 129/49 Pulse 72 Temp 36.3 ??C (97.3 ??F) (Skin) Resp 15 Ht 162.6 cm (5' 4 ) Wt 75.8 kg(167 lb) LMP (LMP Unknown) SpO2 90% BMI 28.67 kg/m?? Intake/Output Summary (Last 24 hours) at 11/27/2024 1558 Last data filed at 11/27/2024 1431 Gross per 24 hour Intake 2500 ml Output 1100 ml Net 1400 ml BP 129/49 Pulse 72 Temp 36.3 ??C (97.3 ??F) (Skin) Resp 15 Ht 162.6 cm (5' 4 ) Wt 75.8 kg(167 lb) LMP (LMP Unknown) SpO2 90% BMI 28.67 kg/m?? General: Not in acute distress. Cooperative Neurological: alert and oriented times three. Grossly non focal Head, eyes and throat: Atraumatic, Conjunctive clear. Oral mucosa is clear and no exudate Neck: supple. Trachea midline CVS: regular rate and rhythm. No rub or murmur. Lungs: Clear to auscultation bilaterally. No crackles or wheezes. Abdomen: Positive bowel sounds. Soft and nontender. No organomegaly Extremities: edema. No cyanosis Skin: no visible rashes. No visible lesions. Grossly intact. Current Facility-Administered Medications Medication Dose Route Frequency Provider Last Rate Last Admin [Transfer Hold] acetaminophen (TYLENOL EXTRA STRENGTH) tablet 1,000 mg 1,000 mg oral Q8H Gonzalo Rolle MD 1,000 mg at 11/27/24 0928 amisulpride (BARHEMSYS) injection 10 mg 10 mg intravenous Once PRN Maninder Claire MD [START ON 11/28/2024] aspirin EC tablet 81 mg 81 mg oral BID Inocencia Kearney PA-C calcium citrate (CALCITRATE) tablet 400 mg 400 mg oral TID with meals Inocencia Kearney PA-C ceFAZolin (ANCEF) IVPB 2000 mg/50 mL in iso-osmotic dextrose (40 mg/mL premix) 2,000 mg [id number] Inocencia Kearney PA-C [START ON 11/28/2024] ceFUROxime (CEFTIN) tablet 500 mg 500 mg oral Q12H BOYD Inocencia Kearney PA-C cholecalciferol (vitamin D3) tablet 2,000 Units 2,000 Units oral Daily Inocencia Kearney PA-C [Transfer Hold] dextrose (GLUTOSE) 40 % gel 15 g 15 g oral PRN Gonzalo Rolle MD [Transfer Hold] dextrose 5 % (D5W) infusion 100 mL/hr intravenous Continuous PRN Gonzalo Rolle MD [Transfer Hold] dextrose 50 % in water (D50W) 50% solution 25 mL 25 mL intravenous PRN Gonzalo Rolle MD ergocalciferol (DRISDOL) capsule 50,000 Units 50,000 Units oral Weekly Inocencia Kearney PA-C fentaNYL (SUBLIMAZE) injection 25 mcg 25 mcg intravenous Q5 Min PRN Maninder Claire MD fentaNYL (SUBLIMAZE) injection 50 mcg 50 mcg intravenous Q5 Min PRN Maninder Claire MD 50 mcg at 11/27/24 1545 [Transfer Hold] glucagon HCL injection 1 mg 1 mg intramuscular PRN Gonzalo Rolle MD hydrALAZINE (APRESOLINE) injection 5 mg 5 mg intravenous Q10 Min PRN Maninder Claire MD [Transfer Hold] HYDROmorphone (DILAUDID) injection 0.25 mg 0.25 mg intravenous Q2H PRN Gonzalo Rolle MD 0.25 mg at 11/26/24 1931 HYDROmorphone (DILAUDID) injection 0.25 mg 0.25 mg intravenous Q5 Min PRN Maninder Claire MD HYDROmorphone (DILAUDID) injection 0.5 mg 0.5 mg intravenous Q5 Min PRN Maninder Claire MD [Transfer Hold] insulin lispro (HumaLOG) injection 1-4 Units 1-4 Units subcutaneous Nightly Gonzalo Vick MD 1 Units at 11/26/242251 [Transfer Hold] insulin lispro (HumaLOG) injection 1-5 Units 1-5 Units subcutaneous TID with meals Gonzalo Rolle MD ipratropium-albuteroL (DUONEB) 0.5 mg-3 mg(2.5 mg base)/3 mL nebulizer solution 3 mL 3 mL nebulization Once PRN Manidner Claire MD labetaloL (NORMODYNE,TRANDATE) injection 5 mg 5 mg intravenous Q5 Min PRN Maninder Claire MD naloxone (NARCAN) injection 0.1 mg 0.1 mg intravenous PRN Maninder Claire MD [Transfer Hold] ondansetron (PF) (ZOFRAN) injection 4 mg 4 mg intravenous Q4H PRN Gonzalo Rolle MD oxyCODONE (ROXICODONE) immediate release tablet 5 mg 5 mg oral Q4H PRN Maninder Claire MD Or oxyCODONE (ROXICODONE) immediate release tablet 10 mg 10 mg oral Q4H PRN Maninder Claire MD [Transfer Hold] oxyCODONE (ROXICODONE) immediate release tablet 2.5 mg 2.5 mg oral Q4H PRN Gonzalo Rolle MD [Transfer Hold] oxyCODONE (ROXICODONE) immediate release tablet 5 mg 5 mg oral Q4H PRN Gonzalo Rolle MD 5 mg at 11/26/242249 [Transfer Hold] sennosides-docusate sodium (SENOKOT-S) 8.6-50 mg 2 tablet 2 tablet oral Nightly Gonzalo Rolle MD 2 tablet at 11/26/242249 [Transfer Hold] sodium chloride 0.9 % infusion 75 mL/hr intravenous Continuous Gonzalo Rolle MD 75 mL/hr at 11/26/242248 75 mL/hr at 11/26/242248 Labs: Recent Results (from the past 48 hours) Extra Tubes Collection Time: 11/26/24 1:34 PM Narrative The following orders were created for panel order Extra Tubes. Procedure Abnormality Status --------- ------ Light Blue Top[[id number]] Final result SST TOP[[id number]] Final result Please view results for these tests on the individual orders. Light Blue Top Collection Time: 11/26/24 1:34 PM Result Value Ref Range Extra Tube Auto Resulted SST TOP Collection Time: 11/26/24 1:34 PM Result Value Ref Range Extra Tube Auto Resulted CBC auto differential Collection Time: 11/26/24 1:35 PM Result Value Ref Range WBC 9.5 4 - 11 x10E9/L RBC Count 3.80 3.8 - 5.2 X10E12/L Hemoglobin 12.3 11.7 - 15.5 g/dL Hematocrit 36.1 35 - 47 % MCV 95 80 - 100 fL MCH 32.3 27 - 34 pg MCHC 34.0 32 - 36 g/dL RDW 12.9 11.5 - 15 % Platelet Count 208 150 - 450 X10E9/L MPV 8.5 7 - 12 fL Neutrophils % 87.5 % Lymphocytes % 5.3 % Monocytes % 5.8 % Eosinophils % 1.1 % Basophils % 0.3 % Neutrophils Absolute (A) 8.4 (H) 1.5 - 6.6 10*3/uL Lymphocytes Absolute 0.5 (L) 1.0 - 3.5 10*3/uL Monocytes Absolute 0.5 0.0 - 0.9 10*3/uL Eosinophils Absolute 0.1 0.0 - 0.4 10*3/uL Basophils Absolute 0.0 0.0 - 0.2 10*3/uL Differential Type AUTOMATED DIFFERENTIAL Basic Metabolic Panel Collection Time: 11/26/24 1:35 PM Result Value Ref Range SODIUM 136 134 - 146 mmol/L POTASSIUM 3.8 3.5 - 5.0 mmol/L CHLORIDE 100 98 - 109 mmol/L CARBON DIOXIDE 27 22 - 32 mmol/L ANION GAP 9 5 - 15 mmol/L BLOOD UREA NITROGEN 51 (H) 5 - 27 mg/dL CREATININE 2.79 (H) 0.40 - 1.00 mg/dL GLUCOSE 252 (H) 65 - 99 mg/dL CALCIUM 9.3 8.5 - 10.5 mg/dL EGFR Non-Race Dependent 17 (L) >=60 ml/min/1.73sq.m Prealbumin Collection Time: 11/26/24 1:35 PM Result Value Ref Range PREALBUMIN 31 18 - 45 mg/dL Type and screen(includes indirect vikas) Collection Time: 11/26/24 1:35 PM Result Value Ref Range ABO A RH Positive Antibody Screen Negative Vitamin D 25 hydroxy Collection Time: 11/26/24 1:35 PM Result Value Ref Range VITAMIN D 25 HYD TOT 27.2 (L) 30.0 - 100.0 ng/mL Narrative Vitamin D status 25 OH Vitamin D Deficiency <20 ng/mL Insufficiency 20-29 ng/mL Sufficiency 30-100 ng/mL Toxicity >100 ng/mL NOTE: A pediatric reference range has not been established by the driller helper of this kit. The [place] [employer] recommends a Vitamin D level of = or >20ng/mL in infants and children. ABO Rh Repeat Collection Time: 11/26/24 1:35 PM Result Value Ref Range ABO A RH Positive CBC auto differential Collection Time: 11/26/24 4:34 PM Result Value Ref Range WBC 12.4 (H) 4 - 11 x10E9/L RBC Count 3.62 (L) 3.8 - 5.2 X10E12/L Hemoglobin 11.8 11.7 - 15.5 g/dL Hematocrit 34.6 (L) 35 - 47 % MCV 96 80 - 100 fL MCH 32.5 27 - 34 pg MCHC 34.0 32 - 36 g/dL RDW 12.6 11.5 - 15 % Platelet Count 204 150 - 450 X10E9/L MPV 9.1 7 - 12 fL Neutrophils % 84.6 % Lymphocytes % 6.8 % Monocytes % 7.7 % Eosinophils % 0.6 % Basophils % 0.3 % Neutrophils Absolute (A) 10.5 (H) 1.5 - 6.6 10*3/uL Lymphocytes Absolute 0.8 (L) 1.0 - 3.5 10*3/uL Monocytes Absolute 1.0 (H) 0.0 - 0.9 10*3/uL Eosinophils Absolute 0.1 0.0 - 0.4 10*3/uL Basophils Absolute 0.0 0.0 - 0.2 10*3/uL Differential Type AUTOMATED DIFFERENTIAL Basic Metabolic Panel Collection Time: 11/26/24 4:34 PM Result Value Ref Range SODIUM 141 134 - 146 mmol/L POTASSIUM 4.3 3.5 - 5.0 mmol/L CHLORIDE 103 98 - 109 mmol/L CARBON DIOXIDE 27 22 - 32 mmol/L ANION GAP 11 5 - 15 mmol/L BLOOD UREA NITROGEN 50 (H) 5 - 27 mg/dL CREATININE 2.57 (H) 0.40 - 1.00 mg/dL GLUCOSE 151 (H) 65 - 99 mg/dL CALCIUM 9.3 8.5 - 10.5 mg/dL EGFR Non-Race Dependent 19 (L) >=60 ml/min/1.73sq.m Prealbumin Collection Time: 11/26/24 4:34 PM Result Value Ref Range PREALBUMIN 29 18 - 45 mg/dL Type and screen(includes indirect vikas) Collection Time: 11/26/24 4:34 PM Result Value Ref Range ABO A RH Positive Antibody Screen Negative Vitamin D 25 hydroxy Collection Time: 11/26/24 4:34 PM Result Value Ref Range VITAMIN D 25 HYD TOT 27.1 (L) 30.0 - 100.0 ng/mL Narrative Vitamin D status 25 OH Vitamin D Deficiency <20 ng/mL Insufficiency 20-29 ng/mL Sufficiency 30-100 ng/mL Toxicity >100 ng/mL NOTE: A pediatric reference range has not been established by the driller helper of this kit. The [place] recommends a Vitamin D level of = or >20ng/mL in infants and children. Ferritin Collection Time: 11/26/24 4:34 PM Result Value Ref Range FERRITIN 32 11 - 307 ng/mL Folate Collection Time: 11/26/24 4:34 PM Result Value Ref Range FOLIC ACID >25.0 >5.8 ng/mL Iron and TIBC Collection Time: 11/26/24 4:34 PM Result Value Ref Range IRON 58 50 - 170 ug/dL TRANSFERRIN 260 168 - 336 mg/dL IRON BINDING 364 250 - 425 ug/dL IRON SATURATION 16 15 - 50 % SATURATION Reticulocytes Collection Time: 11/26/24 4:34 PM Result Value Ref Range Reticulocyte Count 1.5 0.4 - 2.2 % Vitamin B12 Collection Time: 11/26/24 4:34 PM Result Value Ref Range VITAMIN B12 275 180 - 914 pg/mL CK Total Collection Time: 11/26/24 4:34 PM Result Value Ref Range CPK 28 24 - 170 U/L B-type natriuretic peptide Collection Time: 11/26/24 4:34 PM Result Value Ref Range BNP 382 (H) <=100 pg/mL Urinalysis Collection Time: 11/26/24 4:45 PM Specimen: Urine Result Value Ref Range COLOR Yellow Yellow TURBIDITY Hazy (A) Clear SPECIFIC GRAVITY 1.010 1.003 - 1.035 NITRITE Negative Negative PH,URINE 6.5 5.0 - 8.5 LEUKOCYTE ESTERASE Small (A) Negative PROTEIN 70 mg/dL (A) Negative KETONES (URINE) Negative Negative UROBILINOGEN <1.1 eu/dL <1.1 eu/dL BILIRUBIN (URINE) Negative Negative BLOOD/HGB Negative Negative R.B.CELLS <1 0 - 5 W.B.CELLS 8 (H) 0 - 5 GLUCOSE (URINE) >1000 mg/dL (A) Negative Narrative Urine received without preservative - delays in transport may affect results. Interpret with caution and clinical correlation is recommended. Sodium, urine, random Collection Time: 11/26/24 4:45 PM Specimen: Urine Result Value Ref Range URINE SODIUM,RANDOM 49 mmol/L Urine Creatinine,Rdm Collection Time: 11/26/24 4:45 PM Specimen: Urine Result Value Ref Range URINE CREATININE,RDM 72.60 mg/dL Urea random, urine Collection Time: 11/26/24 4:45 PM Specimen: Urine Result Value Ref Range URINE UREA NITROGEN,RANDOM 572 mg/dL Bedside Glucose *Place/Obtain serum glucose if >500 per glucometer. Collection Time: 11/26/24 5:46 PM Result Value Ref Range Bedside Glucose (POC) 122 (H) 65 - 99 mg/dL Bedside Glucose *Place/Obtain serum glucose if >500 per glucometer. Collection Time: 11/26/24 9:20 PM Result Value Ref Range Bedside Glucose (POC) 231 (H) 65 - 99 mg/dL Parathyroid Hormone, intact Collection Time: 11/27/24 5:42 AM Result Value Ref Range PTH INTACT 116 (H) 12 - 88 pg/mL Basic Metabolic Panel Collection Time: 11/27/24 5:42 AM Result Value Ref Range SODIUM 140 134 - 146 mmol/L POTASSIUM 4.5 3.5 - 5.0 mmol/L CHLORIDE 105 98 - 109 mmol/L CARBON DIOXIDE 28 22 - 32 mmol/L ANION GAP 7 5 - 15 mmol/L BLOOD UREA NITROGEN 49 (H) 5 - 27 mg/dL CREATININE 2.53 (H) 0.40 - 1.00 mg/dL GLUCOSE 151 (H) 65 - 99 mg/dL CALCIUM 9.1 8.5 - 10.5 mg/dL EGFR Non-Race Dependent 19 (L) >=60 ml/min/1.73sq.m Vitamin D 25 hydroxy Collection Time: 11/27/24 5:42 AM Result Value Ref Range VITAMIN D 25 HYD TOT 23.1 (L) 30.0 - 100.0 ng/mL Narrative Vitamin D status 25 OH Vitamin D Deficiency <20 ng/mL Insufficiency 20-29 ng/mL Sufficiency 30-100 ng/mL Toxicity >100 ng/mL NOTE: A pediatric reference range has not been established by the driller helper of this kit. The [place] [employer] recommends a Vitamin D level of = or >20ng/mL in infants and children. CBC without diff Collection Time: 11/27/24 5:42 AM Result Value Ref Range WBC 8.1 4 - 11 x10E9/L RBC Count 3.30 (L) 3.8 - 5.2 X10E12/L Hemoglobin 11.0 (L) 11.7 - 15.5 g/dL Hematocrit 32.1 (L) 35 - 47 % MCV 97 80 - 100 fL MCH 33.3 27 - 34 pg MCHC 34.2 32 - 36 g/dL RDW 12.6 11.5 - 15 % Platelet Count 147 (L) 150 - 450 X10E9/L MPV 9.0 7 - 12 fL Prealbumin Collection Time: 11/27/24 5:42 AM Result Value Ref Range PREALBUMIN 27 18 - 45 mg/dL Bedside Glucose *Place/Obtain serum glucose if >500 per glucometer. Collection Time: 11/27/24 8:40 AM Result Value Ref Range Bedside Glucose (POC) 147 (H) 65 - 99 mg/dL Bedside Glucose *Place/Obtain serum glucose if >500 per glucometer. Collection Time: 11/27/24 10:22 AM Result Value Ref Range Bedside Glucose (POC) 174 (H) 65 - 99 mg/dL Principal Problem: Closed fracture of right hip, initial encounter ([facility]) Imaging Imaging has been reviewed in detail and can be seen in full via EMR. Electronically signed by: Yasmin Goodrich MD Disclaimer Note: To increase efficiency, your physician may have prepared this document using voicerecognition technology. In that case, if a word or phrase is confusing, or does not make sense, this is likely due to a recognition error within the program which was not discovered during the physician ???s review. If you believe an error has occurred, please notify your physician ???s office at your earliest convenience, so we can correct any mistakes. * Kirby Andersen MD - 11/27/2024 11:52 AM EDT Orthopedic Progress Note Subjective No acute events overnight. Reports continued pain within the right hip. Objective BP 182/60 Pulse 72 Temp 36.5 ??C (97.7 ??F) (Temporal) Resp 18 Ht 162.6 cm (5' 4 ) Wt 75.8 kg (167 lb) LMP (LMP Unknown) SpO2 99% BMI 28.67 kg/m?? O2 Device: Nasal cannula Lab Results Component Value Date WBC 8.1 11/27/2024 HGB 11.0 (L) 11/27/2024 HCT 32.1 (L) 11/27/2024 MCV 97 11/27/2024 PLT 147 (L) 11/27/2024 Lab Results Component Value Date GLU 174 (H) 11/27/2024 CALCIUM 9.1 11/27/2024 K 4.5 11/27/2024 CO2 28 11/27/2024 BUN 49 (H) 11/27/2024 CREATININE 2.53 (H) 11/27/2024 No results found for: INR , PROTIME General: Awake, alert, in no acute distress. Pleasant and cooperative with the exam. Right lower extremity: Limb not significantly shortened or externally rotated. Tender to palpation around the proximal femur. Pain present with log roll. Full motor and sensory function intact distally. 2+ DP pulse. Imaging: X-rays and CT scan of the right hip personally viewed and demonstrate subcapital femoral neck fracture. There does appear to be a little bit of posterior roll back noted on the CT scan. Assessment/Plan : Elif Shah is a 79 yrs female with right subcapital femoral neck fracture PLAN I discussed the clinical and imaging findings at length with the patient and family at bedside. Dueto nature of the patient's fracture, she is indicated for operative intervention. As there is a little bit of displacement on my interpretation of the CT scan, I would recommend treatment in the formof hemiarthroplasty as I feel there would be a higher risk of failure for screw fixation. Patient ambulates using a walker at baseline and is relatively low demand, so I believe a hemiarthroplasty isappropriate for her. Risks, benefits, and alternatives to surgery discussed. Risks include pain, bleeding, infection, damage to nearby structures, nerve damage, fracture, dislocation, limb-length discrepancy, hardware complications, need for further procedures, anesthesia risks, blood clots, and . Patient and family understanding and agreeable to proceed. All questions and concerns addressed. Patient is NPO. Plan for OR today for right hip hemiarthroplasty. Kirby Andersen MD 11:52 AM 11/27/2024 documented in this encounter H&P Notes * Gonzalo Rolle MD - 11/26/2024 4:41 PM EDT [facility] History & Physical 11/26/2024 Patient Name: Elif Shah : 1945 Chief Complaint: Fall with right hip pain HPI: Elif Shah is a 79 y.o. female with past medical history significant for diabetes type 2, insulin dependent, essential hypertension, fibromyalgia, CKD stage IIIA, heart failure with preservedejection fraction, anxiety and depression, who presented to the emergency department after being transferred from [place]. Patient was walking too fast with her walker, sustained a fall and developedsevere right hip pain. Patient denies loss of consciousness. . Only severe right hip pain. X-ray ofher hip showed right subcapital femoral neck fracture and patient was transferred to [facility] for further management. Patient denies chest pain, shortness a breath, coughing or sputum production. No nausea or vomiting. Patient was admitted for further management. History reviewed. No pertinent past medical history. History reviewed. No pertinent surgical history. Allergy: Clindamycin, Exenatide, Penicillins, Cyclobenzaprine, Codeine, Doxycycline, Dye, Ethinyl estradiol, Iodinated contrast media, Levofloxacin, Levonorgestrel, Liraglutide, Prochlorperazine, Sucralfate, Ticagrelor, Trazodone, and Other Prior to Admission medications Medication Sig Start Date End Date Taking? Authorizing Provider PARoxetine (PAXIL) 40 mg tablet Take 1 tablet (40 mg total) by mouth in the morning. 05/17/24 Deonna Earl DO Social History: History reviewed. No pertinent family history. Review of Systems: Review of Systems Constitutional: Negative for fever and chills. HENT: Negative for congestion, ear discharge, ear pain, hearing loss, rhinorrhea and sore throat. Eyes: Negative for pain and discharge. Respiratory: Negative for cough, chest tightness and shortness of breath. Cardiovascular: Negative for chest pain, palpitations and leg swelling. Gastrointestinal: Negative for nausea, vomiting, abdominal pain, diarrhea, blood in stool and abdominal distention. Genitourinary: Negative for dysuria. Musculoskeletal: Negative for myalgias and back pain. Neurological: Negative for weakness and headaches. Psychiatric/Behavioral: Negative for agitation and confusion. Exam: BP 174/53 Pulse 60 Temp 36.7 ??C (98.1 ??F) (Oral) Resp 18 SpO2 94% No intake or output data in the 24 hours ending 11/26/24 1641 General: Well-developed, well-nourished. Awake, alert, and conversant. Appears to be non-toxic and in no acute distress. HEENT: Normocephalic, non-traumatic. Conjunctiva clear and sclera anicteric bilaterally. Cardiovascular: Normal rate, regular rhythm. S1 and S2 appreciated without murmur auscultated. Respiratory: Normal air entry with bilateral chest expansion. Clear to ausculation in bilateral lung hernandez without wheezes Abdominal: Soft, non-distended abdomen. Normoactive bowel sounds. Non-tender to palpation in all four quadrants without rebound tenderness or guarding. Peripheral: Extremities are warm. Bilateral pitting edema noted Neurologic: Grossly normal Psychiatric: Oriented to person, place, time, and situation. Calm, cooperative. Able to demonstrategood insight and judgement. No abnormal affect or behavior observed. Labs: Recent Results (from the past 24 hours) Extra Tubes Collection Time: 11/26/24 1:34 PM Narrative The following orders were created for panel order Extra Tubes. Procedure Abnormality Status --------- ------ Light Blue Top[[id number]] Final result SST TOP[[id number]] Final result Please view results for these tests on the individual orders. Light Blue Top Collection Time: 11/26/24 1:34 PM Result Value Ref Range Extra Tube Auto Resulted SST TOP Collection Time: 11/26/24 1:34 PM Result Value Ref Range Extra Tube Auto Resulted CBC auto differential Collection Time: 11/26/24 1:35 PM Result Value Ref Range WBC 9.5 4 - 11 x10E9/L RBC Count 3.80 3.8 - 5.2 X10E12/L Hemoglobin 12.3 11.7 - 15.5 g/dL Hematocrit 36.1 35 - 47 % MCV 95 80 - 100 fL MCH 32.3 27 - 34 pg MCHC 34.0 32 - 36 g/dL RDW 12.9 11.5 - 15 % Platelet Count 208 150 - 450 X10E9/L MPV 8.5 7 - 12 fL Neutrophils % 87.5 % Lymphocytes % 5.3 % Monocytes % 5.8 % Eosinophils % 1.1 % Basophils % 0.3 % Neutrophils Absolute (A) 8.4 (H) 1.5 - 6.6 10*3/uL Lymphocytes Absolute 0.5 (L) 1.0 - 3.5 10*3/uL Monocytes Absolute 0.5 0.0 - 0.9 10*3/uL Eosinophils Absolute 0.1 0.0 - 0.4 10*3/uL Basophils Absolute 0.0 0.0 - 0.2 10*3/uL Differential Type AUTOMATED DIFFERENTIAL Basic Metabolic Panel Collection Time: 11/26/24 1:35 PM Result Value Ref Range SODIUM 136 134 - 146 mmol/L POTASSIUM 3.8 3.5 - 5.0 mmol/L CHLORIDE 100 98 - 109 mmol/L CARBON DIOXIDE 27 22 - 32 mmol/L ANION GAP 9 5 - 15 mmol/L BLOOD UREA NITROGEN 51 (H) 5 - 27 mg/dL CREATININE 2.79 (H) 0.40 - 1.00 mg/dL GLUCOSE 252 (H) 65 - 99 mg/dL CALCIUM 9.3 8.5 - 10.5 mg/dL EGFR Non-Race Dependent 17 (L) >=60 ml/min/1.73sq.m Type and screen(includes indirect vikas) Collection Time: 11/26/24 1:35 PM Result Value Ref Range ABO A RH Positive Antibody Screen Negative ABO Rh Repeat Collection Time: 11/26/24 1:35 PM Result Value Ref Range ABO A RH Positive Imaging Imaging has been reviewed in detail and can be seen in full via EMR. Assessment and Plan: Right subcapital femoral neck fracture Mechanical fall Evaluated by Orthopedic surgery, NPO pending further recommendations CT hip has been ordered by Orthopedic surgery Continue pain control; currently on scheduled Tylenol. Oxycodone for moderate and severe pain. IV Dilaudid for breakthrough. Continue bowel regimen. PT OT consulted, pending further orthopedic surgery recommendations Geriatric hip protocol orders at in place Preoperative clearance: RCRI: 1 point for elevated creatinine preoperatively. 1.1% of major cardiacevent. EKG reviewed, sinus rhythm. Patient is cleared for surgery. No further evaluation required prior to procedure. Acute kidney injury on CKD stage IIIA. Last creatinine on February 2024 was 1.4. Currently coming in with creatinine 2.79. Will start on IV fluid hydration. Note, patient does have bilateral pitting edema of diastolic heart failure. Will also obtain BNP level. Monitor oxygen requirements closely. Currently on room air saturating well Will obtain CPK, urinalysis and urine studies. Will also obtain renal ultrasound. Continue to monitor creatinine and electrolytes. Avoid nephrotoxins. If worsening creatinine, will need Nephrology evaluation Heart failure with preserved ejection fraction, not in exacerbation Noted per prior PCP notes No recent echocardiogram in our system Currently with bilateral lower extremity edema, however on room air saturating well Receiving IV fluids for acute kidney injury on CKD as mentioned above Monitor oxygen requirements closely 2 g sodium restriction, 1.8 L fluid restriction Accurate intake and output Daily weight Elevated blood pressure, SBP 174/53 on admission. Home medication reconciliation pending however patient does not seem to have history of high blood pressure. Will place on IV hydralazine as needed. Could also be related to pain, continue pain control. Diabetes type 2, insulin dependent. SSI, hypoglycemia protocol and Accu-Cheks. Awaiting home medication reconciliation Fibromyalgia, awaiting home medication reconciliation Anxiety and depression, awaiting home medication reconciliation Note: Home medication reconciliation pending -GI prophylaxis: not indicated -DVT Prophylaxis: SCD, holding pharmacological prophylaxis pending orthopedic surgery further recommendations -Code Status: Full code -Disposition: Discussed with ED provider, Admit to inpatient -Plan of care discussed at length with patient at bedside Electronically signed by: Gonzalo Rolle MD4:41 PM documented in this encounter Consult Notes * NICOLE Cotton - 11/28/2024 11:21 AM EDTAssociated Order(s): IP CONSULT TO NUTRITION SERVICES NUTRITION ADULT INITIAL EVALUATION NUTRITION ASSESSMENT: Reason to be seen: geriatric hip fracture consult Patient History: Admit Diagnosis: Patient Active Problem List Diagnosis Chronic diastolic congestive heart failure ([facility]) Other fracture of unspecified lumbar vertebra, subsequent encounter for fracture with routine healing Essential hypertension Iron deficiency anemia, unspecified Type 2 diabetes mellitus with stage 3b chronic kidney disease, with long-term current use of insulin ([facility]) Personal history of transient ischemic attack (TIA), and cerebral infarction without residual deficits Acute combined systolic and diastolic heart failure ([facility] [place] [place]) Pure hypercholesterolemia Recurrent major depressive disorder, in remission Gastroesophageal reflux disease Old myocardial infarction Generalized anxiety disorder Fibromyalgia Urinary tract infection with hematuria Pneumonia due to infectious organism Weakness History of falling Closed fracture of right hip, initial encounter ([facility] [place]) Past Medical History: Past Medical History: Diagnosis Date CHF (congestive heart failure) ([facility] [place]) Chronic kidney disease Coronary artery disease Dental disease Diabetes mellitus type 2, controlled ([facility]) Dizziness GERD (gastroesophageal reflux disease) Hyperlipidemia Hypertension Myocardial infarction ([facility]) Prolonged emergence from general anesthesia Past Surgical History: Past Surgical History: Procedure Laterality Date CHOLECYSTECTOMY CORONARY STENT PLACEMENT ESOPHAGOSCOPY HEMIARTHROPLASTY HIP Right 11/27/2024 Performed by Kirby Andersen MD at [facility] LAPAROSCOPIC HYSTERECTOMY OOPHORECTOMY OVARIAN CYST SURGERY Social/ Cognitive/ Economic: from home Brief Clinical Summary: Pt fell at home and now with hip fracture. Ortho performed right hip hemiarthroplasty on 11/27/2024. Pt with medical history significant for chronic kidney disease (CKD) stageIIIa, diabetes mellitus type 2, heart failure with preserved ejection fraction, essential hypertension, fibromyalgia, anxiety, and depression Biochemical Data, Medical Tests, and Procedures: 11/27- right hip hemiarthroplasty Labs: Results from last 3 days Lab Units 11/28/24 07511/27/24 0542 11/26/24 1634 SODIUM mmol/L 136 140 141 POTASSIUM mmol/L 5.2* 4.5 4.3 CHLORIDE mmol/L 102 105 103 CO2 mmol/L 26 28 27 BUN mg/dL 50* 49* 50* CREATININE mg/dL 2.45* 2.53* 2.57* CALCIUM mg/dL 9.1 9.1 9.3 ALBUMIN g/dL 3.2 3.4 -- ALK PHOS U/L 118 -- -- ALT U/L 339* -- -- AST U/L 261* -- -- Results from last 7 days Lab Units 11/28/24 0809 11/28/24 0754 11/27/24 2135 11/27/24 1700 11/27/24 1022 11/27/24 0840 11/27/24 0542 BEDSIDE GLUCOSE mg/dL 204* -- 290* 245* 174* 147* -- GLUCOSE mg/dL -- 207* -- -- -- -- 151* Results from last 3 days Lab Units 11/28/24 0754 11/27/24 0542 11/26/24 1634 WBC x10E9/L 9.1 8.1 12.4* HEMOGLOBIN g/dL 9.3* 11.0* 11.8 HEMATOCRIT % 28.2* 32.1* 34.6* PLATELETS X10E9/L 138* 147* 204 MCV fL 97 97 96 Results from last 3 days Lab Units 11/28/24 0754 MAGNESIUM mg/dL 2.3 Results from last 3 days Lab Units 11/27/24 0542 PHOSPHORUS mg/dL 4.3 Results from last 3 days Lab Units 11/28/24 0754 11/26/24 1645 BILIRUBIN, TOTAL mg/dL 0.4 -- BILIRUBIN URINE -- Negative Lab Results Component Value Date HGBA1C 7.0 (H) 10/10/2024 Lab Results Component Value Date IRON 58 11/26/2024 TIBC 364 11/26/2024 FERRITIN 32 11/26/2024 Lab Results Component Value Date IRONSAT 16 11/26/2024 Lab Results Component Value Date CHOL 156 03/19/2024 Lab Results Component Value Date CHDL 2.6 03/19/2024 Lab Results Component Value Date HDL 59 03/19/2024 Lab Results Component Value Date LDLCALC 66 03/19/2024 Lab Results Component Value Date TRIG 156 (H) 03/19/2024 Lab Results Component Value Date VERYLOWLIP 31 (H) 03/19/2024 Lab Results Component Value Date AILVYDWE74 275 11/26/2024 Lab Results Component Value Date FOLATE >25.0 11/26/2024 Lab Results Component Value Date VITD25 23.1 (L) 11/27/2024 Comments (labs): elevated K/BUN/creat Medications/ Parenteral: Note pt takes reglan at home Medications Prior to Admission Medication Sig Dispense Refill Last Dose/Taking aspirin 81 mg Take 1 tablet (81 mg total) by mouth in the morning. 11/25/2024 Morning atorvastatin (LIPITOR) 80 mg tablet Take 1 tablet (80 mg total) by mouth in the morning. 11/25/2024 Morning buPROPion XL (WELLBUTRIN XL) 150 mg 24 hr tablet Take 1 tablet (150 mg total) by mouth in the morning. 11/25/2024 Morning carvediloL (COREG) 25 mg tablet Take 1 tablet (25 mg total) by mouth in the morning and 1 tablet (25 mg total) in the evening. Take with meals. 11/25/2024 Evening empagliflozin (JARDIANCE) 25 mg tablet tablet Take 1 tablet (25 mg total) by mouth in the morning. 11/25/2024 Morning famotidine (PEPCID) 40 mg tablet Take 1 tablet (40 mg total) by mouth in the morning. 11/25/2024 Morning fluticasone propionate (FLONASE) 50 mcg/actuation nasal spray Administer 2 sprays into each nostrilas needed for rhinitis (both nostrils q24 prn). Past Week furosemide (LASIX) 40 mg tablet Take 1 tablet (40 mg total) by mouth daily. 11/25/2024 Morning hydrALAZINE (APRESOLINE) 100 mg tablet Take 1 tablet (100 mg total) by mouth at noon and 1 tablet (100 mg total) before bedtime. 11/25/2024 Evening isosorbide mononitrate (IMDUR) 30 mg 24 hr tablet Take 1 tablet (30 mg total) by mouth daily. 11/25/2024 Morning metoclopramide (REGLAN) 5 mg tablet Take 1 tablet (5 mg total) by mouth once daily at bedtime. Give1 tablet by mouth at bedtime nor nausea 11/25/2024 Bedtime montelukast (SINGULAIR) 10 mg tablet Take 1 tablet (10 mg total) by mouth nightly. 11/25/2024 Evening pantoprazole (PROTONIX) 40 mg EC tablet Take 1 tablet (40 mg total) by mouth in the morning. 11/25/2024 Morning PARoxetine (PAXIL) 40 mg tablet Take 1 tablet (40 mg total) by mouth in the morning. 11/25/2024 Morning polyethylene glycol (GLYCOLAX) 17 gram packet Take 17 g by mouth as needed (daily prn). Past Week SITagliptin phosphate (JANUVIA) 25 mg tablet Take 1 tablet (25 mg total) by mouth in the morning. 11/25/2024 Morning temazepam (RESTORIL) 7.5 mg capsule Take 1 capsule (7.5 mg total) by mouth nightly as needed for sleep. Current Facility-Administered Medications Medication Dose Route Frequency Provider Last Rate Last Admin acetaminophen (TYLENOL EXTRA STRENGTH) tablet 1,000 mg 1,000 mg oral Q8H Hibah H MD Sariah 1,000 mg at 11/28/24826 atorvastatin (LIPITOR) tablet 80 mg 80 mg oral Daily Yasmin Goodrich MD 80 mg at 11/28/24826 buPROPion XL (WELLBUTRIN XL) 24 hr tablet 150 mg 150 mg oral Daily Yasmin Goodrich MD 150 mg at 11/28/24826 calcium citrate (CALCITRATE) tablet 400 mg 400 mg oral TID with meals Inocencia Kearney PA-C 400 mg at 11/28/24826 carvediloL (COREG) tablet 12.5 mg 12.5 mg oral BID with meals Yasmin Goodrich MD 12.5 mg at 11/28/24 08 ceFUROxime (CEFTIN) tablet 500 mg 500 mg oral Q12H [facility] Inocencia Kearney PA-C cholecalciferol (vitamin D3) tablet 2,000 Units 2,000 Units oral Daily Inocencia Kearney PA-C 2,000 Units at 11/28/24826 dextrose (GLUTOSE) 40 % gel 15 g 15 g oral PRN Gonzalo Rolle MD dextrose 5 % (D5W) infusion 100 mL/hr intravenous Continuous PRN Gonzalo Rolle MD dextrose 50 % in water (D50W) 50% solution 25 mL 25 mL intravenous PRN Gonzalo Rolle MD ergocalciferol (DRISDOL) capsule 50,000 Units 50,000 Units oral Weekly Inocencia Kearney PA-C 50,000Units at 11/28/24 0833 glucagon HCL injection 1 mg 1 mg intramuscular PRN Gonzalo Rolle MD heparin (porcine) injection 5,000 Units 5,000 Units subcutaneous Q8H [facility] Inocencia Kearney PA-C 5,000 Units at 11/28/24 0516 HYDROmorphone (DILAUDID) injection 0.25 mg 0.25 mg intravenous Q2H PRN Gonzalo Rolle MD 0.25 mg at 11/26/24 1931 insulin lispro (HumaLOG) injection 1-4 Units 1-4 Units subcutaneous Nightly Gonzalo Rolle MD 2 Units at 11/27/24 2201 insulin lispro (HumaLOG) injection 1-5 Units 1-5 Units subcutaneous TID with meals Gonzalo Rolle MD 2 Units at 11/28/24 08 ondansetron (PF) (ZOFRAN) injection 4 mg 4 mg intravenous Q4H PRN Gonzalo Rolle MD oxyCODONE (ROXICODONE) immediate release tablet 2.5 mg 2.5 mg oral Q4H PRN Gonzalo Rolle MD 2.5 mg at 11/27/24 2224 oxyCODONE (ROXICODONE) immediate release tablet 5 mg 5 mg oral Q4H PRN Gonzalo Rolle MD 5 mg at 11/26/24 2250 perflutren lipid microspheres (DEFINITY) dilution injection 1.43 mg/10 mL 2 mL intravenous PRN Yasmin Goodrich MD 2 mL at 11/28/24 1015 sennosides-docusate sodium (SENOKOT-S) 8.6-50 mg 2 tablet 2 tablet oral Nightly Gonzalo Rolle MD 2 tablet at 11/27/24 2200 sodium chloride 0.9 % flush 10 mL 10 mL intravenous Once PRN Yasmin Goodrich MD 10 mL at 11/28/24 1016 Nutrition Focused Physical Findings was off unit at time of visit Skin (per nursing flow sheets): Skin Color: [place] (11/28/24819) Skin Temp: Warm; Dry (11/28/24819) Wound (per nursing flow sheets): Wound 11/27/24 Incision Hip Right-Site Assessment: Unable to assess (drsg intact) (11/28/24819) Gastrointestinal (per nursing flow sheets): Abdomen Assessment: Soft; Nondistended (11/28/24819) Last BM Date: 11/25/24 (11/28/24819) Passing Flatus: Yes (11/28/24819) RUQ Bowel Sounds: Active (11/28/24819) LUQ Bowel Sounds: Active (11/28/24819) RLQ Bowel Sounds: Active (11/28/24819) LLQ Bowel Sounds: Active (11/28/24819) GI Symptoms: None (11/27/24 1611) Edema (per nursing flow sheets): RLE Edema: +1 (11/28/24819) LLE Edema: +1 (11/28/24819) Intake/ Output Last 24 hrs: Intake/Output Summary (Last 24 hours) at 11/28/2024 1142 Last data filed at 11/28/2024 0820 Gross per 24 hour Intake 2500 ml Output 1320 ml Net 1180 ml Food/Nutrition Related History: Diet History: will assess when able to talk with pt Allergies: Allergies Allergen Reactions Clindamycin Anaphylaxis and Other (See Comments) Exenatide GI Disturbance and Rash Other Reaction(s): itching Penicillins Facial Swelling, Hives, Itching, Other (See Comments) and Rash Cyclobenzaprine Hives, Itching, Other (See Comments) and Rash Codeine Hives and Other (See Comments) Doxycycline Diarrhea Dye Ethinyl Estradiol Other (See Comments) Iodinated Contrast Media Hives and Other (See Comments) Other Reaction(s): itching/rash Levofloxacin Levonorgestrel Other (See Comments) Liraglutide GI Disturbance Prochlorperazine Other (See Comments) Sucralfate Other (See Comments) Ticagrelor Other Reaction(s): sickness Trazodone GI Disturbance Other Rash Diet/ Nutrition Order Review: Dietary Orders (From admission, onward) Start Ordered 11/27/24 1459 Adult diet Regular Texture; Consistent Carb 210 grams (1800 kcal); 2000 mg Sodium; Fluid Restriction 1800 mL Diet effective now Question Answer Comment Diet Type: Regular Texture Carbohydrate Modifiers: Consistent Carb 210 grams (1800 kcal) Sodium Modifiers: 2000 mg Sodium Fluid Restrictions: Fluid Restriction 1800 mL 11/27/24 1503 Diet Intakes: - Anthropometrics: Ht Readings from Last 1 Encounters: 11/27/24 162.6 cm (5' 4 ) Wt Readings from Last 20 Encounters: 11/28/24 82.1 kg (181 lb) 11/26/24 79.8 kg (176 lb) 05/13/24 81.7 kg (180 lb 3.2 oz) 05/06/24 84.6 kg (186 lb 9.6 oz) 04/29/24 86.6 kg (191 lb) 04/25/24 86.6 kg (191 lb) Last 3 Weight Readings 11/27/24 0546 11/27/24 1011 11/28/24 0500 Weight: 75.8 kg (167 lb 1.7 oz) 75.8 kg (167 lb) 82.1 kg (181 lb) Admit Weight: 75.8kg (Bed Scale, 11/27) Usual Body Weight: - Agency Body Weight: 54.5kg Percent Agency Body Weight: 139 Weight Changes: stable per above Body Mass Index: Body mass index is 31.07 kg/m??. BMI Category: Obese class 1 (30.00- 34.99) Comparative Standards: Estimated Energy Needs: 9700-2874 kcals daily. Method and weight used: 25-30 kcal/kg IBW Estimated Protein Needs: 65-90 grams daily. Method and weight used: 1.2-2g protein/kg IBW Estimated Fluid Needs: 6672-1310 ml daily. Method weight used: 25-30 ml/kg IBW Comments: general floor needs, would go slightly conservative protein range given renal status Malnutrition Status: Malnutrition Present: No NUTRITION DIAGNOSIS: Intake Diagnosis: Increased nutrient needs calcium , vit D, protein/energy (NI 5.1) related to ortho healing needs as evidenced by recent hip fracture/repair. NUTRITION INTERVENTIONS: Supplements (medical food, vitamin or mineral): will add one Nepro oral supplement daily for 420kca/19g protein per serving. Meals & snacks: diet per MD. Monitor labs for additional K restriction on oral diet if intake of meals is good GOAL(S): >75% of meals and supplement to be taken NUTRITION MONITORING AND EVALUATION: I/O,wts, labs, oral intake , supplement acceptance. Gabriella Olvera R.D,L.D. Clinical dietitian Patient Touch extension:[phone] Direct Dial phone number: [phone] 11/28/24 11:43 AM * Dane Garcia MD - 11/28/2024 6:54 AM EDTAssociated Order(s): IP CONSULT TO NEPHROLOGY Images from the original note were not included. Justin [facility] Grayson Rivero CNP Nephrology Consultation Note Patient Name: Elif Shah : 1945 Date of Service: 11/28/24 PCP: AMADOR ABDALLA MD Attending Physician: Yasmin Goodrich MD Admission Date: 11/26/2024 Length of stay: LOS: 2 days Chief complaint: Chief Complaint Patient presents with Fall Reason for Consult: Acute on chronic kidney disease stage IIIB/4 Assessment and Plan. 79-year-old female with a past medical history significant for chronic kidney disease (CKD) stage IIIa, diabetes mellitus type 2, heart failure with preserved ejection fraction, essential hypertension, fibromyalgia, anxiety, and depression. Baseline creatinine was 1.6-2.0 mg/dL based on previous records, with a creatinine of 1.4 mg/dL in February 2024. Patient presented to the emergency departmenton 11/26/2024 with the chief complaint of a fall and right hip pain. The patient states she was walking too fast with her walker when she tripped and fell, landing on her right hip. She denied head or neck injury, loss of consciousness, chest pain, or shortness of breath. In the emergency department, workup revealed a closed fracture of the right hip. Labs on admission showed BUN 51 mg/dL and creatinine 2.79 mg/dL. Patient underwent right hip hemiarthroplasty on 11/27/2024. Patient was admittedfor further management of the hip fracture. Nephrology consultation was requested for management of acute on chronic kidney disease. Assessment Acute on chronic kidney disease, stage 3b-4. Baseline creatinine 1.6-2.0 mg/dL, GFR likely 30-35 ml/min. Acute kidney injury is likely hemodynamic in nature due to hemodynamic instability. Rule out cardiorenal syndrome. No recent exposure to contrast or NSAIDs. Home medications of Jardiance and Lasix noted. No evidence of obstructive uropathy based on current data. Urine studies are indeterminatebut not consistent with a pre-renal state. Metabolic alkalosis on initial evaluation. Azotemia: BUN 50 mg/dL on initial evaluation. Volume Status: Euvolemic to mildly hypervolemic. Evidence includes elevated BNP of 605 pg/mL and mild lower extremity edema ( Non pitting ). Chest X-ray showed no significant pulmonary vascular congestion. Hypertension: Stable. Hemodynamics: History of heart failure with preserved ejection fraction. Echocardiogram is pending. Right subcapital femoral neck fracture, status post hemiarthroplasty. Mechanical fall. Diabetes mellitus type 2. Hyperlipidemia. Coronary artery disease. Gastroesophageal reflux disease. Anxiety and depression. Plan Monitor off fluids for now Hold Jardiance. Hold diuretics for now. Renal ultrasound is pending. Repeat urine studies today. Echocardiogram is pending. Continue current anti-hypertensive regimen, which includes Coreg. Avoid nephrotoxins, including NSAIDs and contrast studies. Strict I&O, bladder scan for urinary retention, Daily weight, accurate documentation of urine output. Dose all medications to GFR. Renal chemistry panel monitoring in AM. Thank you for this consultation, we will follow along with you regarding care of this patient whilethe patient is here in the hospital, please call if you have any questions or concerns. DANE GARCIA MD on 11/28/2024 at 6:54 AM Justin [facility] [email or web address] Schedule : See Epic on-call schedule for [facility] ( [facility] ) Nephrology Working Hours : Epic chat during working hours, if no response please use on- call physician reach out as below After Hours : Answering service contact : [phone] History of presenting illness 79-year-old female with a past medical history significant for chronic kidney disease (CKD) stage IIIa, diabetes mellitus type 2, heart failure with preserved ejection fraction, essential hypertension, fibromyalgia, anxiety, and depression. Baseline creatinine was 1.6-2.0 mg/dL based on previous records, with a creatinine of 1.4 mg/dL in February 2024. Patient presented to the emergency departmenton 11/26/2024 with the chief complaint of a fall and right hip pain. The patient states she was walking too fast with her walker when she tripped and fell, landing on her right hip. She denied head or neck injury, loss of consciousness, chest pain, or shortness of breath. In the emergency department, workup revealed a closed fracture of the right hip. Labs on admission showed BUN 51 mg/dL and creatinine 2.79 mg/dL. Patient underwent right hip hemiarthroplasty on 11/27/2024. Patient was admittedfor further management of the hip fracture. Nephrology consultation was requested for management of acute on chronic kidney disease. Past Medical History: Diagnosis Date CHF (congestive heart failure) ([facility]) Chronic kidney disease Coronary artery disease Dental disease Diabetes mellitus type 2, controlled ([facility]) Dizziness GERD (gastroesophageal reflux disease) Hyperlipidemia Hypertension Myocardial infarction ([facility]) Prolonged emergence from general anesthesia Past Surgical History: Procedure Laterality Date CHOLECYSTECTOMY CORONARY STENT PLACEMENT ESOPHAGOSCOPY LAPAROSCOPIC HYSTERECTOMY OOPHORECTOMY OVARIAN CYST SURGERY History reviewed. No pertinent family history. Social History Socioeconomic History Marital status: Spouse name: Not on file Number of children: Not on file Years of education: Not on file Highest education level: Not on file Occupational History Not on file Tobacco Use Smoking status: Never Smokeless tobacco: Never Vaping Use Vaping status: Not on file Substance and Sexual Activity Alcohol use: Not Currently Drug use: Never Sexual activity: Defer Other Topics Concern Not on file Social History Narrative Not on file Social Drivers of Health Financial Resource Strain: Low Risk (01/22/2024) Received from [facility] Overall Financial Resource Strain (CARDIA) Difficulty of Paying Living Expenses: Not very hard Food Insecurity: No Food Insecurity (11/26/2024) Hunger Screening Food Insecurity - Worry: Never True Food Insecurity - Inability: Never True Transportation Needs: No Transportation Needs (11/26/2024) PRAPARE - Transportation Lack of Transportation (Medical): No Lack of Transportation (Non-Medical): No Physical Activity: Inactive (01/22/2024) Received from [facility] Exercise Vital Sign Days of Exercise per Week: 0 days Minutes of Exercise per Session: 0 min Stress: Stress Concern Present (01/22/2024) Received from [facility] [place] [employer] - Occupational Stress Questionnaire Feeling of Stress : To some extent Social Connections: Moderately Isolated (01/22/2024) Received from [facility] Social Connection and Isolation Panel [NHANES] Frequency of Communication with Friends and Family: Three times a week Frequency of Social Gatherings with Friends and Family: Twice a week Attends Rastafari Services: 1 to 4 times per year Active Member of Clubs or Organizations: No Attends Club or Organization Meetings: Never Marital Status: Interpersonal Safety: Not At Risk (11/26/2024) Humiliation, Afraid, Rape, and Kick questionnaire Fear of Current or Ex-Partner: No Emotionally Abused: No Physically Abused: No Sexually Abused: No Housing Instability: Low Risk (11/26/2024) Housing Instability Housing Instability: No Prior to Admission medications Medication Sig Start Date End Date Taking? Authorizing Provider aspirin 81 mg Take 1 tablet (81 mg total) by mouth in the morning. Yes Not In System Ref Prov atorvastatin (LIPITOR) 80 mg tablet Take 1 tablet (80 mg total) by mouth in the morning. Yes Not InSystem Ref Prov buPROPion XL (WELLBUTRIN XL) 150 mg 24 hr tablet Take 1 tablet (150 mg total) by mouth in the morning. Yes Not In System Ref Prov carvediloL (COREG) 25 mg tablet Take 1 tablet (25 mg total) by mouth in the morning and 1 tablet (25 mg total) in the evening. Take with meals. Yes Not In System Ref Prov empagliflozin (JARDIANCE) 25 mg tablet tablet Take 1 tablet (25 mg total) by mouth in the morning. Yes Not In System Ref Prov famotidine (PEPCID) 40 mg tablet Take 1 tablet (40 mg total) by mouth in the morning. Yes Not In System Ref Prov fluticasone propionate (FLONASE) 50 mcg/actuation nasal spray Administer 2 sprays into each nostrilas needed for rhinitis (both nostrils q24 prn). Yes Not In System Ref Prov furosemide (LASIX) 40 mg tablet Take 1 tablet (40 mg total) by mouth daily. Yes Not In System Ref Prov hydrALAZINE (APRESOLINE) 100 mg tablet Take 1 tablet (100 mg total) by mouth at noon and 1 tablet (100 mg total) before bedtime. Yes Not In System Ref Prov isosorbide mononitrate (IMDUR) 30 mg 24 hr tablet Take 1 tablet (30 mg total) by mouth daily. Yes Not In System Ref Prov metoclopramide (REGLAN) 5 mg tablet Take 1 tablet (5 mg total) by mouth once daily at bedtime. Give1 tablet by mouth at bedtime nor nausea Yes Not In System Ref Prov montelukast (SINGULAIR) 10 mg tablet Take 1 tablet (10 mg total) by mouth nightly. Yes Not In System Ref Prov pantoprazole (PROTONIX) 40 mg EC tablet Take 1 tablet (40 mg total) by mouth in the morning. Yes Not In System Ref Prov PARoxetine (PAXIL) 40 mg tablet Take 1 tablet (40 mg total) by mouth in the morning. 05/17/24 Yes Boby Earl, DO polyethylene glycol (GLYCOLAX) 17 gram packet Take 17 g by mouth as needed (daily prn). Yes Not In System Ref Prov SITagliptin phosphate (JANUVIA) 25 mg tablet Take 1 tablet (25 mg total) by mouth in the morning. Yes Not In System Ref Prov temazepam (RESTORIL) 7.5 mg capsule Take 1 capsule (7.5 mg total) by mouth nightly as needed for sleep. Not In System Ref Prov Allergies Allergen Reactions Clindamycin Anaphylaxis and Other (See Comments) Exenatide GI Disturbance and Rash Other Reaction(s): itching Penicillins Facial Swelling, Hives, Itching, Other (See Comments) and Rash Cyclobenzaprine Hives, Itching, Other (See Comments) and Rash Codeine Hives and Other (See Comments) Doxycycline Diarrhea Dye Ethinyl Estradiol Other (See Comments) Iodinated Contrast Media Hives and Other (See Comments) Other Reaction(s): itching/rash Levofloxacin Levonorgestrel Other (See Comments) Liraglutide GI Disturbance Prochlorperazine Other (See Comments) Sucralfate Other (See Comments) Ticagrelor Other Reaction(s): sickness Trazodone GI Disturbance Other Rash Review Of Systems: 12 point review of systems was done in detail and is negative except as above in HPI Physical Exam: VITALS BP (!) 132/93 Comment: RN notified Pulse 69 Temp 36.5 ??C (97.7 ??F) (Oral) Resp 13 Ht 162.6 cm (5' 4 ) Wt 82.1 kg (181 lb) LMP (LMP Unknown) SpO2 96% BMI 31.07 kg/m?? Wt Readings from Last 3 Encounters: 11/28/24 82.1 kg (181 lb) 11/26/24 79.8 kg (176 lb) 05/13/24 81.7 kg (180 lb 3.2 oz) BMI: Body mass index is 31.07 kg/m??. I/O (24 Hours) Intake/Output Summary (Last 24 hours) at 11/28/2024 0654 Last data filed at 11/28/2024 0534 Gross per 24 hour Intake 2500 ml Output 1270 ml Net 1230 ml General: General examination: Well-developed, well-nourished. Awake, alert, and not in acute distress. HEENT: No conjunctival pallor, anicteric sclera, no oropharyngeal erythema Neck: No lymphadenopathy, no JVD Cardiovascular: Regular rate and rhythm. No murmurs auscultated. Respiratory: Clear to auscultation bilaterally. No crackles or wheezes. Abdomen: Soft, non-distended, normoactive bowel sounds. Non-tender to palpation. Extremities: Bilateral lower extremity edema. Neurological: Alert and oriented to person, place, and time. No focal deficits. Skin: No rashes or lesions Psychiatric: Appropriate affect, no acute distress Medications Scheduled Meds: acetaminophen, 1,000 mg, oral, Q8H atorvastatin, 80 mg, oral, Daily buPROPion XL, 150 mg, oral, Daily calcium citrate, 400 mg, oral, TID with meals carvediloL, 12.5 mg, oral, BID with meals ceFUROxime, 500 mg, oral, Q12H BOYD cholecalciferol, 2,000 Units, oral, Daily ergocalciferol, 50,000 Units, oral, Weekly heparin (porcine), 5,000 Units, subcutaneous, Q8H BOYD insulin lispro, 1-4 Units, subcutaneous, Nightly insulin lispro, 1-5 Units, subcutaneous, TID with meals sennosides-docusate sodium, 2 tablet, oral, Nightly Continuous Infusions: dextrose 5 % in water, 100 mL/hr PRN Meds: dextrose dextrose 5 % in water dextrose 50 % in water (D50W) glucagon (human recombinant) HYDROmorphone ondansetron oxyCODONE oxyCODONE Results Review Renal Chemistry Results from last 7 days Lab Units 11/27/2442 11/26/24 1634 11/26/24 1335 SODIUM mmol/L 140 141 136 POTASSIUM mmol/L 4.5 4.3 3.8 CHLORIDE mmol/L 105 103 100 CO2 mmol/L 28 27 27 BUN mg/dL 49* 50* 51* CREATININE mg/dL 2.53* 2.57* 2.79* CALCIUM mg/dL 9.1 9.3 9.3 PHOSPHORUS mg/dL 4.3 -- -- Hepatic: Lab Results Component Value Date AST 18 03/19/2024 AST 17 06/09/2016 AST 17 04/01/2015 ALT 23 03/19/2024 ALT 24 06/09/2016 ALT 20 04/01/2015 ALKPHOS 86 06/09/2016 ALKPHOS 57 04/01/2015 BNP Lab Results Component Value Date BNP 605 (H) 11/27/2024 BNP 382 (H) 11/26/2024 BNP 496 (H) 06/09/2016 Albumin: Lab Results Component Value Date ALBUMIN 3.4 11/27/2024 CBC Results from last 7 days Lab Units 11/27/24 0542 11/26/24 1634 11/26/24 1335 WBC x10E9/L 8.1 12.4* 9.5 HEMOGLOBIN g/dL 11.0* 11.8 12.3 HEMATOCRIT % 32.1* 34.6* 36.1 PLATELETS X10E9/L 147* 204 208 Results from last 7 days Lab Units 11/27/24 2135 11/27/24 1700 11/27/24 1022 11/27/24 0840 11/27/24 0542 BEDSIDE GLUCOSE mg/dL 290* 245* 174* 147* -- GLUCOSE mg/dL -- -- -- -- 151* Urine Studies: Lab Results Component Value Date COLOR Yellow 11/26/2024 COLOR YELLOW 04/11/2015 TURBIDITY Hazy (A) 11/26/2024 TURBIDITY CLEAR 04/11/2015 SPECIFICGRA 1.010 11/26/2024 SPECIFICGRA 1.010 04/11/2015 NITRITE Negative 11/26/2024 NITRITE Negative 04/11/2015 PHURINE 6.5 11/26/2024 PHURINE 5.5 04/11/2015 LEUKOCYTE Small (A) 11/26/2024 LEUKOCYTE Negative 04/11/2015 PROTEIN 70 mg/dL (A) 11/26/2024 PROTEIN Negative 04/11/2015 KETONES Negative 11/26/2024 KETONES Negative 04/11/2015 UROBILINOGEN <1.1 eu/dL 11/26/2024 UROBILINOGEN 0.2 04/11/2015 BLOODHGB Negative 11/26/2024 BLOODHGB Negative 04/11/2015 Lab Results Component Value Date URINECREATI 72.60 11/26/2024 MICROALBUR 243.1 (H) 03/19/2024 Lab Results Component Value Date ALBCREATRA 3,668.3 (H) 03/19/2024 Urine Sodium: No components found for: MILES Urine Potassium: No results found for: KUR Urine Chloride: No results found for: CLUR Urine Osmolarity: No components found for: OSMOU Urine Creatinine: No results found for: LABCREA Urine Eosinophils: No components found for: UEOS Urine Protein: No components found for: TPU Immunology Profile No results found for: PROTELECTR , SEDRATE , CRP , RF , ANASCREEN , ANTIDSDNA , C3 , C4 , ANCA , MYELOP , PROTEINASE3 , ANTIGLOMERU No results found for: HAV , HEPAIGM , HEPBIGM , HEPBCAB , HBEAG , HEPCAB WOJCIECH: No results found for: WOJCIECH C3:No results found for: C3 C4:No results found for: C4 MPO ANCA: No results found for: MPO PR3 ANCA: No components found for: PR3 hepatitis serologies ANTIGBM:No components found for: GBMABIGG HEPATITIS B SURFACE AG: No results found for: HEPBSAG HEPATITIS C AB: No results found for: HEPCAB Electrophoresis: SPEP:No results found for: PROT , LABALPH , LABBETA , PATH UPEP:No results found for: LABPE Anemia Profile Lab Results Component Value Date WBC 8.1 11/27/2024 WBC 12.4 (H) 11/26/2024 HGB 11.0 (L) 11/27/2024 HGB 11.8 11/26/2024 HCT 32.1 (L) 11/27/2024 HCT 34.6 (L) 11/26/2024 PLT 147 (L) 11/27/2024 PLT 204 11/26/2024 Lab Results Component Value Date IRON 58 11/26/2024 TIBC 364 11/26/2024 FERRITIN 32 11/26/2024 Bone Mineral Profile Lab Results Component Value Date PTH 116 (H) 11/27/2024 CALCIUM 9.1 11/27/2024 Echocardiogram: No results found. Thank you for the consultation. Please do not hesitate to contact us for any further questions/concerns. We will continue to follow along with you. * VIGNESH Hodge - 11/26/2024 5:49 PM EDT Chief complaint: Right hip pain HPI: Elif Shah is a 79 y.o. female presents to [facility] with right hip pain. Patient states that she was walking too fast with her walker and fell onto her right side. She had immediate pain and inability to ambulate. She was seen at an outside hospital and subsequently transferred to the [facility] for definitive treatment. She denies pain or injury to any other extremity. She denies having any numbness or tingling. History reviewed. No pertinent past medical history. History reviewed. No pertinent surgical history. History reviewed. No pertinent family history. Allergies as of 11/26/2024 - Reviewed 11/26/2024 Allergen Reaction Noted Clindamycin Anaphylaxis and Other (See Comments) 05/26/2016 Exenatide GI Disturbance and Rash 12/27/2012 Penicillins Facial Swelling, Hives, Itching, Other (See Comments), and Rash 12/11/2012 Cyclobenzaprine Hives, Itching, Other (See Comments), and Rash 12/11/2012 Codeine Hives and Other (See Comments) 12/27/2021 Doxycycline Diarrhea 12/22/2019 Dye 06/02/2022 Ethinyl estradiol Other (See Comments) 09/24/2024 Iodinated contrast media Hives and Other (See Comments) 02/06/2014 Levofloxacin 06/02/2022 Levonorgestrel Other (See Comments) 09/24/2024 Liraglutide GI Disturbance 05/16/2022 Prochlorperazine Other (See Comments) 12/11/2012 Sucralfate Other (See Comments) 12/22/2019 Ticagrelor 06/02/2022 Trazodone GI Disturbance 12/19/2019 Other Rash 12/11/2012 Current Facility-Administered Medications: [START ON 11/27/2024] acetaminophen (TYLENOL EXTRA STRENGTH) tablet 1,000 mg, 1,000 mg, oral, Q8H, Gonzalo Rolle MD dextrose (GLUTOSE) 40 % gel 15 g, 15 g, oral, PRN, Gonzalo Rolle MD dextrose 5 % (D5W) infusion, 100 mL/hr, intravenous, Continuous PRNGonzalo MD dextrose 50 % in water (D50W) 50% solution 25 mL, 25 mL, intravenous, PRNGonzalo MD glucagon HCL injection 1 mg, 1 mg, intramuscular, PRN, Gonzalo Rolle MD HYDROmorphone (DILAUDID) injection 0.25 mg, 0.25 mg, intravenous, Q2H PRN, Gonzalo Rolle MD insulin lispro (HumaLOG) injection 1-4 Units, 1-4 Units, subcutaneous, Nightly, Gonzalo Rolle MD insulin lispro (HumaLOG) injection 1-5 Units, 1-5 Units, subcutaneous, TID with meals, Gonzalo Rolle MD ondansetron (PF) (ZOFRAN) injection 4 mg, 4 mg, intravenous, Q4H PRN, Gonzalo Rolle MD oxyCODONE (ROXICODONE) immediate release tablet 2.5 mg, 2.5 mg, oral, Q4H PRN, Gonzalo Rolle MD oxyCODONE (ROXICODONE) immediate release tablet 5 mg, 5 mg, oral, Q4H PRN, Gonzalo Rolle MD, 5 mgat 11/26/24 1743 sennosides-docusate sodium (SENOKOT-S) 8.6-50 mg 2 tablet, 2 tablet, oral, Nightly, Gonzalo Rolle MD sodium chloride 0.9 % infusion, 75 mL/hr, intravenous, Continuous, Gonzalo Rolle MD, Last Rate: 75 mL/hr at 11/26/24 1647, 75 mL/hr at 11/26/24 1647 Current Outpatient Medications: PARoxetine (PAXIL) 40 mg tablet, Take 1 tablet (40 mg total) by mouth in the morning., Disp: , Rfl: REVIEW OF SYSTEMS: MSK: right hip fracture, Neuro: Negative for numbness or tingling, All other ROSnegative (10 systems reviewed) PHYSICAL EXAM: Vitals: BP 178/54 Pulse 59 Temp 36.7 ??C (98.1 ??F) (Oral) Resp 22 SpO2 91% General: Well-nourished, Well-developed and Age appropriate LOC: awake and alert Orientation: oriented to person, place, time, and recent events Psych: Pleasant and Cooperative Station: Lying supine on hospital bed HEENT: normocephalic, atraumatic head, neck, & facies, no ecchymosis or abrasions, midline trachea Resp: no respiratory distress, acyanotic, normal RR, breathing easily, nonlabored, no use of accessory muscles Musculoskeletal: Right lower extremity- good sensation to her foot. She is able flex extend her digits. She is able plantar flex dorsiflex. Nontender at the ankle. Calf is soft nontender. She is nontender at the knee.Positive log roll. Skin is intact. IMAGING: X-rays and CT of her right hip were reviewed and show a mildly displaced right subcapital hip fracture LABS: Lab Results Component Value Date WBC 12.4 (H) 11/26/2024 HGB 11.8 11/26/2024 HCT 34.6 (L) 11/26/2024 MCV 96 11/26/2024 PLT 204 11/26/2024 Lab Results Component Value Date GLU 151 (H) 11/26/2024 CALCIUM 9.3 11/26/2024 K 4.3 11/26/2024 CO2 27 11/26/2024 BUN 50 (H) 11/26/2024 CREATININE 2.57 (H) 11/26/2024 Lab Results Component Value Date VITD25 27.1 (L) 11/26/2024 DIAGNOSIS: Elif Shah is a 79 y.o. female with right hip fracture PLAN: 1. Discussed with Dr. Bhagat 2. Patient to medicine 3. Geriatric hip fracture protocol 4. Hold anticoagulation 5. Plan for surgical fixation of her hip with Dr. Andersen tomorrow 6. Pain medication per primary service VIGNESH HODGE PA 11/26/241754 Cosigned by Kirby Andersen MD at 11/27/2024 11:52 AM EDT documented in this encounter ED Notes * Loren Cui RN - 11/26/2024 7:18 PM EDT [facility] calls requesting update. Software Architect stated patient was transferred to [facility] ER. * Mandy Gannon RN - 11/26/2024 5:18 PM EDT Bed: 41 Expected date: Expected time: Means of arrival: Comments: 29 * Gian Green DO - 11/26/2024 4:39 PM EDT Images from the original note were not included. [facility] - EMERGENCY DEPARTMENT Pt Name: Elif Shah Birthdate: 1945 Chief Complaint: Chief Complaint Patient presents with Fall History of Present Illness: HPI Past Medical History: History reviewed. No pertinent past medical history. Past Surgical History: History reviewed. No pertinent surgical history. Family History: History reviewed. No pertinent family history. Social History: Social History Socioeconomic History Marital status: Social Drivers of Health Financial Resource Strain: Low Risk (01/22/2024) Received from [facility] Overall Financial Resource Strain (CARDIA) Difficulty of Paying Living Expenses: Not very hard Food Insecurity: No Food Insecurity (11/26/2024) Hunger Screening Food Insecurity - Worry: Never True Food Insecurity - Inability: Never True Transportation Needs: No Transportation Needs (09/24/2024) Received from [facility] - Transportation Lack of Transportation (Medical): No Lack of Transportation (Non-Medical): No Physical Activity: Inactive (01/22/2024) Received from [facility] Exercise Vital Sign Days of Exercise per Week: 0 days Minutes of Exercise per Session: 0 min Stress: Stress Concern Present (01/22/2024) Received from [facility] [place] - Occupational Stress Questionnaire Feeling of Stress : To some extent Social Connections: Moderately Isolated (01/22/2024) Received from [facility] Social Connection and Isolation Panel [NHANES] Frequency of Communication with Friends and Family: Three times a week Frequency of Social Gatherings with Friends and Family: Twice a week Attends Rastafari Services: 1 to 4 times per year Active Member of Clubs or Organizations: No Attends Club or Organization Meetings: Never Marital Status: Received from [facility] [place] Safety [facility] Environment Housing Instability: Low Risk (09/24/2024) Received from [facility] Housing Stability Vital Sign Unable to Pay for Housing in the Last Year: No Number of Times Moved in the Last Year: 0 Homeless in the Last Year: No Review of Systems: Review of Systems Physical Exam: ED Triage Vitals [11/26/247] Temp Heart Rate Resp BP SpO2 36.7 ??C (98.1 ??F) 60 18 174/53 94 % Temp Source Heart Rate Source Patient Position BP Location FiO2 (%) Oral Monitor Semi-fowlers Right arm -- Vitals: 11/26/247 BP: 174/53 Temp: 36.7 ??C (98.1 ??F) TempSrc: Oral Pulse: 60 Resp: 18 SpO2: 94% MAP (mmHg): 89 Physical Exam Procedure: Procedures Re-evaluation: Re-Evaluation Medical Decision Making Amount and/or Complexity of Data Reviewed Labs: ordered. Radiology: ordered. ECG/medicine tests: ordered. Risk OTC drugs. Prescription drug management. ED Course: Clinical Impressions as of 11/26/241641 Closed fracture of right hip, initial encounter ([facility]) . ED Disposition ED Disposition Admit Date/Time SunNov 26, 2024 4:37 PM Comment At this time, the patient has objective evidence of an acute process that will likely require hospitalization for greater than 2 midnights. The patient will be admitted. Shared/Split Visit 16:20 EDT Tanya Diza (scribe), scribed for and in the presence of: Dr. Melia Green who performed the above service. I, Dr. Melia Green personally performed a [id number] diagnostic evaluation on this patient. I personally made and approved the management plan for this patient and take responsibility for the patient management. Additional Notes/Findings: Elif Shah is a 79 y.o. female presenting to the ED for chief complaint of a fall. Patient arrives after a slip and fall on her right hip at the [facility]. Denies injury anywhere else. Exam findings as follows: Constitutional: Awake and alert HENT: Head normocephalic and atraumatic Eyes: conjunctiva unremarkable Cardiovascular: Heart rate regular Pulmonary: Easy work of breathing, speaking full sentences Abdominal: Flat and non-distended Skin: Warm and dry Musculoskeletal: Moving all extremities spontaneously Please note that portions of this note were completed with a voice recognition program. Efforts were made to edit the dictations but occasionally words are mis-transcribed. Tanya Gomes 11/26/24 1642 Gian Green DO 11/27/24 1511 * Nicole Oliver RN - 11/26/2024 4:28 PM EDT Pt to ED via EMS from [place]. EMS reports pt was walking too fast with walker and slipped and fellon her way to [facility]. Pt presented to [place] ER where she was found to have a right subcapital femoral neck fracture. Pt denies LOC or hitting head. Pt presents a&ox4, vss, and NAD noted. * Mandy Gannon RN - 11/26/2024 4:15 PM EDT Bed: 29 Expected date: Expected time: Means of arrival: [facility] Comments: 79 YO F from [facility] ER transfer Elif Shah. 1945 A&Ox4 Tripped over walker trying to get to [facility] 50mcg Fent 79 y/o F. Right subcapital femoral neck fracture. Dr. Bhagat (orthopedic) accepted to ER. Dr. Ness aware of patient. Question, call Access @ [phone] EMS: 65 HR 95%RA 152/56 ETA 15 min Right hip pain 08/28 documented in this encounter Miscellaneous Notes * Discharge Planning Note - LOVELY Ulloa - 12/01/2024 1:34 PM EDT DC plan SNF: [facility] accepting pt. We have insurance approval. Pt will discharge today.Transport arranged for 2pm. Patient, pt dtr BRIAN Galvan, facility aware. HENS completed. CRF sent.BLS tx cert sent to [facility] - LOVELY Ulloa 12/01/24 1:35 PM ' Ongoing Assessment for Discharge Needs Reviewed discharge milestones and patient needs related to discharge plan. Current estimated discharge date of Dec 01, 2024 has been reviewed by treatment team. Ongoing Assessment for Discharge Needs Flowsheet Row Most Recent Value Services Requested Patient expects to be discharged to: SNF Does the patient wish to have family/friend/caregiver involved in their discharge planning? Yes Does the patient plan to return home to a community setting? No, patient to discharge to facility-based provider. See Discharge Disposition Discharge Disposition SNF SNF Name [facility] SNF Accepted? Yes PreCertification Authorization Number [id number] PreCertification Expiration Date 12/04/24 PreCertification Expiration Time 7217 Does the patient need discharge transportation arranged? Yes Transportation Arranged Ambulance Patient choice offered Yes List Provided Yes [facility] List Provided [facility] Facility Respiratory Indicator Does the patient currently have home respiratory equipment? No Will the patient need home respiratory equipment upon discharge? No, it is expected that patient will NOT discharge home with respiratory DME needs * Plan of Care - Kelley Hills RN - 12/01/2024 11:15 AM EDT Problem: Potential for Compromised Skin Integrity Goal: Skin integrity is maintained or improved Description: Patient's goal is: no breakdown INTERVENTIONS 1. Perform initial skin assessment on admission and as needed 2. Turn patient every 2 hours and PRN 3. Relieve pressure to bony prominences 4. Avoid shearing 5. Keep skin clean and dry 6. Alternate a full bath with partial baths for elderly 7. Apply lotion/moisturizer on skin 8. Monitor patient's hygiene practices 9. Float heels 10. Collaborate with interdisciplinary team and initiate plans and interventions as needed Outcome: Progressing Note: Evaluation of progress towards goal: see assessment/ LDA charting Problem: Urinary Incontinence Goal: Perineal skin integrity is maintained or improved Description: INTERVENTIONS 1. Assess genitourinary system, perineal skin, labs (urinalysis), and history of incontinence to include past management, aggravating, and alleviating factors 2. Keep skin clean and dry 3. Apply skin protectant 4. Develop skin care regimen 5. Provide privacy when changing patients incontinence device to maintain their dignity 6. Consider placing an indwelling catheter 7. Collaborate with interdisciplinary team and initiate plans and interventions as needed Outcome: Progressing Note: Evaluation of progress towards goal: no breakdown Problem: Pain Goal: Patient goal is pain score less than 4, able to rest, and participant in treatment plan as appropriate Description: INTERVENTIONS: 1. Encourage patient or legal warehouse representative to report early pain and ask for pain medicine when needed 2. Assess pain using appropriate pain scale and include the scale used when documenting 3. Administer analgesics based on type and severity of pain and evaluate response within appropriate time frame 4. Implement non-pharmacological measures as appropriate and evaluate response 5. Consider cultural and social influences on pain and pain management 6. Notify LIP if interventions ineffective or patient reports new pain 7. Monitor vital signs including pulse ox, end-tidal CO2 based on pain intervention 8. Reassess pain per policy 9. Teach patient or legal warehouse representative interventions for comforting Outcome: Progressing Note: Evaluation of progress towards goal: denies pain this morning Problem: Safety Goal: Patient will be injury free during hospitalization Description: INTERVENTIONS: 1. Assess patient's risk for falls and implement fall prevention plan of care per policy 2. Provide and maintain a safe environment 3. Proper use of double Identifiers 4. Medication administration using the 5 rights 5. Hand hygiene 6. Specimens are labeled at the bedside 7. Instruct patient/ patient warehouse representative about use of safety devices 8. Include patient/ patient warehouse representative in decisions related to safety Outcome: Progressing Note: Evaluation of progress towards goal: Safety maintained; free from falls/ injuries this admission. Continue current fall prevention interventions. Problem: Infection Goal: Absence of infection during hospitalization Description: INTERVENTIONS 1. Assess and monitor for signs and symptoms of infection. 2. Monitor lab/diagnostic results. 3. Monitor all insertion sites i.e., indwelling lines, tubes and drains. 4. Monitor endotracheal (as able) and nasal secretions for changes in amount and color. 5. Administer medications as ordered. 6. Instruct and encourage patient and family to use good hand hygiene technique. 7. Identify and instruct patient/patient warehouse representative in use of appropriate isolation precautionsfor identified infection/symptoms. 8. Provide and discuss with patient/patient warehouse representative on educational MDRO sheet. 9. Encourage and monitor nutritional status daily and consult cyber forensics analyst if indicated. 10. Implement neutropenic guidelines as needed. Outcome: Progressing Note: Evaluation of progress towards goal: PO cefuroxime continued, afebrile Problem: Knowledge Deficit Goal: Patient/patient warehouse representative demonstrates understanding of disease process, treatment plan,medications, and discharge instructions Description: INTERVENTIONS 1. Complete learning assessment and assess knowledge base 2. Provide teaching at level of understanding 3. Provide teaching via preferred learning method(s) Outcome: Progressing Note: Evaluation of progress towards goal: POC discussed with patient Problem: Discharge Planning Goal: Discharge to post-acute care, other facility, or home with appropriate resources Description: Patient's goal is: SNF INTERVENTIONS 1. Conduct assessment to determine patient/family and health care team treatment goals, and need for post-acute services based on payer coverage, community resources, and patient preferences, and barriers to discharge 2. Coordinate with Social work, Care Navigation, and Utilization Review to arrange appropriate level of services according to patient's needs based on patient preference and payer coverage in collaboration with the physician and health care team 3. Address psychosocial, clinical, and financial barriers to discharge as identified in assessment in conjunction with the patient/family and health care team 4. Consult appropriate ancillary services (i.e.. PT/OT/ST, etc) as needed 5. Communicate with and update the patient/family, physician, and health care team regarding progress on the discharge plan 6. Identify discharge learning needs (meds, wound care, etc). 7. Arrange for needed discharge transportation as appropriate Outcome: Progressing Note: Evaluation of progress towards goal: will discharge to SNF when medically ready; no barriers to discharge, needs transport set up to SNF Problem: Moderate - High Risk Fall Score Description: Millan Fall Score of =/> 25 or indicated by [facility] Assessment Goal: Patient should be free from fall Description: Interventions: 1. [place] to environment 2. Hourly rounds addressing the 4 P's (Pain, Positioning, Possessions, Potty) 3. Clear area of hazards (spills, clutter, electrical cords, unnecessary equipment) 4. Place equipment (bed & TV controls, call light, phone, urinal) within reach 5. Encourage patient to wear glasses and hearing aides as appropriate 6. Maintain bed in lowest position 7. Lock wheels on bed/wheelchair 8. Provide adequate lighting, including night light 9. Assess need for additional bedding, food/fluids, pain med's prior to sleep/routinely 10. Provide gripper slippers or personal non-skid footwear 11. Teach patient and patient warehouse representative to maintain environment for safety and engage in all aspects of fall prevention program 12. Remind patient to call for help before getting out of bed 13. Initiate bed/chair/exit alarms supportive devices as appropriate, (chair wedge, no-skid floor mat, raised edge mattress, hip protectors) 14. Locate patient bed assignment for optimal visualization 15. Evaluate and identify Safe Patient Handling Equipment needs 16. Provide supervision when out of bed or chair 17. Utilize gait belt as needed to assist with ambulation 18. Place adaptive equipment (cane, walker) within reach 19. Request patient warehouse representative bring adaptive equipment/mobility aids from home or obtain and provide as needed 20. Consult pharmacy regarding effects of med's affecting mobility, cognition, and alternatives 21. Obtain physician order for PT if risk factors associated with mobility are present 22. Obtain physician order for OT as appropriate 23. Utilize diversional activities 24. Educate patient and patient warehouse representative how to maintain a safe environment during visitationtimes (notify nurse prior to leaving bedside) 25. Consider appropriateness of medical or non-program medical director 26. Set up voiding schedule as appropriate (every 2 hours) Outcome: Progressing Note: Evaluation of progress towards goal: Safety maintained; free from falls/ injuries this admission. Continue current fall prevention interventions. Problem: Activity Intolerance/Impaired Mobility Goal: Mobility/activity is maintained at optimum level for patient Description: Patient's goal is: ambulate at baseline INTERVENTIONS 1. Assess and monitor patient barriers to mobility and need for assistive/adaptive devices 2. Assess patient's emotional response to limitations 3. Collaborate with interdisciplinary teams and initiate plans and interventions as ordered 4. Encourage independent activity per tolerance 5. Maintain proper body alignment 6. Perform active/passive ROM as tolerated/ordered 7. Coordinate activities to conserve energy 8. Reposition patient 9. Ensure adequate rest/sleep time Outcome: Progressing Note: Evaluation of progress towards goal: up with kim sanchez with unsteady gait Problem: Potential For Peripheral Neurovascular Impairment Goal: Extremity color, movement, and sensation are maintained or improved Description: INTERVENTIONS 1. Assess and monitor vital signs, pulse distal to injury, pain, color, movement, sensation, temperature, and capillary refill of extremity below injury, and edema 2. Monitor for signs of compartment syndrome (pain, decreased sensation, loss of movement, weakness, absence of pulse, affected area tight and firm) 3. Monitor for signs of deep vein thrombosis (swelling of calf/thigh, redness, pain, tenderness) 4. Encourage ambulation/activity per patient's ability 5. Monitor application of corrective devices (cast, brace, splint, traction) 6. Monitor extremity for proper alignment 7. Encourage patient to do ankle pump exercises 8. Apply anti-embolism stockings/devices as ordered 9. Collaborate with interdisciplinary team and initiate plans and interventions as needed Outcome: Progressing Note: Evaluation of progress towards goal: skin pink, warm and dry, cap refill ok, palpable pulses Problem: Potential for Compromised Skin Integrity Goal: Patient's nutritional intake is adequate Description: Patient's goal is: tolerate po INTERVENTIONS 1. Assess and monitor food intake and supplements, patient food preferences, nausea, vomiting, labs, oral cavity (gums, teeth, tongue, mucosa), proper denture fit, and cultural beliefs 2. Monitor for signs of hypoglycemia and hyperglycemia 3. Collaborate with interdisciplinary team and initiate plan and interventions as ordered 4. Monitor patient's weight 5. Assist patient with meals/food selection 6. Assist patient with eating 7. Allow adequate time for meals 8. Provide pleasant environment during mealtime 9. Increase social contact during mealtimes 10. Plan activities to conserve energy 11. Encourage/perform oral hygiene as appropriate 12. Encourage patient to take dietary supplement as ordered 13. Collaborate with clinical cyber forensics analyst 14. Include patient/ patient's warehouse representative in decisions related to nutrition Outcome: Completed Note: Evaluation of progress towards goal: tolerating po Problem: Spiritual Needs Goal: Ability to function at adequate level Description: INTERVENTIONS 1. Assist patient in evaluation of resources/support systems available 2. Encourage verbalization of feelings/concerns/expectations 3. Provide quiet environment 4. Be available and sensitive to patient's needs 5. Communicate referral to pastoral care as appropriate 6. Collaborate with case management/outreach and education social worker for discharge needs Outcome: Completed Note: Evaluation of progress towards goal: no spiritual needs * PT/OT/[facility] DIRECTOR - SARAH Bynum/Alexsander - 12/01/2024 11:03 AM EDT Occupational Therapy Treatment Discharge Recommendations for Safe Patient Transition OT Discharge Disposition Recommendation: Post acute - moderate OT Post Acute Moderate Rehab Needs: Recommend moderate intensity rehab, Tolerate 1-2 hrs of therapy3-5 days/wk, Subacute or chronic functional impairment Current Impairments Informing Therapy Recommendation: Ambulation status/safety, Cognition, Fall risk, ADL status, Endurance level 6 Clicks: Daily Activity Putting on and taking off regular lower body clothing?: Total Bathing (including washing, rinsing, drying)?: A lot Toileting, which includes using toilet, bedpan or urinal?: Total Putting on and taking off regular upper body clothing?: A lot Taking care of personal grooming such as brushing teeth?: A little Eating meals?: None Scoring Daily Activity Raw Score: 13 CMS G Code Modifier: CL OT Treatment/Interventions: ADL retraining, Functional transfer training, UE strengthening/ROM, Endurance training, Patient/family training, Equipment eval/education, Balance, Bed mobility, Compensatory technique education, Functional activities OT Frequency: Twice a Day OT Duration: length of stay Assessment Patient Assessment Therapy Problem List: Decreased ADL status, Decreased balance, Decreased endurance, Decreased high-level ADLs, Decreased mobility, Decreased self-care trans, Decreased UE strength, Decreased LE strength Patient Response to Treatment: Slow progress, decreased activity tolerance Mood/Affect: Appropriate for circumstances Rehab Prognosis: Good, With continued OT status post acute discharge Visit RN Communication: Yes Medical Record Reviewed: Yes OT Type of Visit: Treatment Precautions Activity: ok to tx per RN Equipment: gait belt, kim stedy, external cath Telemetry/Flat Optical Element Maker: No Oxygen Used: 2L Other: fall risk Pain Assessment Pain Assessment: 0-10 Pain Score: 3 Pain Location: Hip Pain Orientation: Right Pain Intervention(s): Cold applied, Repositioned, Ambulation/increased activity Response to Interventions: Quiet ADL / IADL Hand Dominance: Right Where Assessed: Chair Grooming Assistance: Standby assist Grooming Deficit: Wash/dry hands, Wash/dry face, Brushing hair, Oral hygiene Other: grooming tasks completed while seated in the chair. SBA provided to complete. increased time/effort required to complete d/t weakness and fatigue. Home Management - IADL Other: grooming tasks completed while seated in the chair. SBA provided to complete. increased time/effort required to complete d/t weakness and fatigue. Cognition Orientation Level: Oriented to person Other: pt was cooperative throughout session. slow processessing noted. Bed Mobility Supine to Sit: Max assist (x2) Other: HOB slightly elevated and use of rail required. max A x2 required to complete. cues providedfor proper tech and body mechanics. increased time/effort required. pt left in the chair at end of session with call light within reach and with RN aware. Transfers Sit to Stand: Min assist (x2) Stand to Sit: Min assist (x2) Bed to Chair: Total assist (kim stedy) Other: pt completed sit to stand from EOB at kim stedy. min A x2 required to complete. elevated bed height provided. use of kim stedy utilized to transfer pt from bed to chair. repo sling in place for nursing staff. Gait Other: not appropriate this session d/t pts level of weakness, fatigue, and decreased activity tolerance. Balance Sitting Balance: Static: Fair (-) Sitting Balance: Dynamic: Poor Standing Balance: Static: Poor Other: pt sat unsupported while EOB to prep for transfer. pt able to tolerate approx 8 mins with CGA to mod A required to maintain balance d/t L lateral/posterior lean/LOB. cues provided to stay midline. poor return noted. pt stood in kmi stedy for approx 1-2 mins with B UE support required from device while standing. min A x2 required for safety and stability. Activity Tolerance Endurance: Tolerates 30 minutes activity with rest breaks Other: fair overall tolerance. pt is limited by weakness, fatigue, pain, and decreased activity tolerance. 12/01/24 0911 UE ROM UE ROM exercises performed? Yes Scapular retraction x Shoulder flexion/extension x Shoulder horizontal abduction/adduction x Elbow flexion/extension x Other B UE AROM Repetitions x15 Plan Occupational Therapy Care Plan Occupational Therapy Care Plan (Active) Template: OT - Occupational Therapy Problem: Activity Tolerance Dates: Start: 11/28/24 Disciplines: OT Goal: Tolerate > 30 minutes of activity WITH rest breaks Dates: Start: 11/28/24 Expected End: 12/26/24 Description: Goal Description: Disciplines: OT Outcomes Date/Time User Outcome 12/01/24 1102 TIFFANY Bynum Progressing 11/29/24 1605 TIFFANY Lopez Progressing 11/29/24 1042 TIFFANY Lopez Progressing Goal Note filed on 12/01/24 1102 by TIFFANY Bynum Evaluation of progress towards goal: Problem: Bathing LB Dates: Start: 11/28/24 Disciplines: OT Goal: Patient will perform bathing LB with Stand By Assist Dates: Start: 11/28/24 Expected End: 12/26/24 Description: Goal Description: Disciplines: OT Problem: Bathing UB Dates: Start: 11/28/24 Disciplines: OT Goal: Patient will perform bathing UB with Stand By Assist Dates: Start: 11/28/24 Expected End: 12/26/24 Description: Goal Description: Disciplines: OT Problem: Bed Mobility Dates: Start: 11/28/24 Disciplines: OT Goal: Patient will perform bed mobility with Modified Becker Dates: Start: 11/28/24 Expected End: 12/26/24 Description: Goal Description: Disciplines: OT Outcomes Date/Time User Outcome 12/01/24 110 SARAH Bynum/Alexsander Not Progressing 11/29/24 1605 Jodie Brown SMITH/L Progressing 11/29/24 1042 Jodie Brown SMITH/L Progressing Goal Note filed on 12/01/24 1102 by TIFFANY Bynum Evaluation of progress towards goal: Problem: Dressing LB Dates: Start: 11/28/24 Disciplines: OT Goal: Patient will perform dressing LB with Modified Becker Dates: Start: 11/28/24 Expected End: 12/26/24 Description: Goal Description: Disciplines: OT Problem: Dressing UB Dates: Start: 11/28/24 Disciplines: OT Goal: Patient will perform dressing UB Independently Dates: Start: 11/28/24 Expected End: 12/26/24 Description: Goal Description: Disciplines: OT Problem: Functional Mobility Dates: Start: 11/28/24 Disciplines: OT Goal: Patient will perform functional mobility Independently Dates: Start: 11/28/24 Expected End: 12/26/24 Description: Goal Description: Disciplines: OT Outcomes Date/Time User Outcome 11/29/24 1605 Jodie Brown SMITH/L Progressing 11/29/24 1042 Jodie Brown SMITH/L Progressing Problem: Grooming Dates: Start: 11/28/24 Disciplines: OT Goal: Patient will perform grooming Independently Dates: Start: 11/28/24 Expected End: 12/26/24 Description: Goal Description: Disciplines: OT Outcomes Date/Time User Outcome 12/01/24 1102 SARAH Bynum/Alexsander Progressing 11/29/24 1605 Jodie Brown SMITH/L Progressing Goal Note filed on 12/01/24 1102 by Ángela Maurilio, SMITH/L Evaluation of progress towards goal: Problem: ROM Dates: Start: 11/28/24 Problem: Sitting Balance Dates: Start: 11/28/24 Disciplines: OT Goal: Improve balance to good Dates: Start: 11/28/24 Expected End: 12/26/24 Description: Static Dynamic Disciplines: OT Outcomes Date/Time User Outcome 12/01/24 1102 SARAH Bynum/Alexsander Not Progressing 11/29/24 1605 Jodie Brown SMITH/L Progressing 11/29/24 1042 Jodie Brown SMITH/L Progressing Goal Note filed on 12/01/24 1102 by SARAH Bynum/Alexsander Evaluation of progress towards goal: Problem: Standing Balance Dates: Start: 11/28/24 Disciplines: OT Goal: Improve balance to good Dates: Start: 11/28/24 Expected End: 12/26/24 Description: Static Dynamic Disciplines: OT Outcomes Date/Time User Outcome 12/01/24 1102 SARAH Bynum/Alexsander Progressing 11/29/24 1605 DONNA LopezA/L Progressing 11/29/24 1042 Jodie Brown SMITH/L Progressing Goal Note filed on 12/01/24 1102 by SARAH Bynum/Alexsander Evaluation of progress towards goal: Problem: Strength Dates: Start: 11/28/24 Disciplines: OT Goal: Improve strength Dates: Start: 11/28/24 Expected End: 12/26/24 Description: Of extremity/ location:Patient will demo B UE HEP independently To facilitate: To improve ind with ADLs and functional transfers/mobility. Disciplines: OT Outcomes Date/Time User Outcome 12/01/24 1102 TIFFANY Bynum Progressing Goal Note filed on 12/01/24 1102 by TIFFANY Bynum Evaluation of progress towards goal: Problem: Toilet Transfers Dates: Start: 11/28/24 Disciplines: OT Goal: Patient will perform toilet transfers with Modified Becker Dates: Start: 11/28/24 Expected End: 12/26/24 Description: Goal Description: Disciplines: OT Problem: Toileting Dates: Start: 11/28/24 Disciplines: OT Goal: Patient will perform toileting with Modified Becker Dates: Start: 11/28/24 Expected End: 12/26/24 Description: Goal Description: Disciplines: OT Problem: Transfers Dates: Start: 11/28/24 Disciplines: OT Goal: Patient will perform transfers with Modified Becker Dates: Start: 11/28/24 Expected End: 12/26/24 Description: Goal Description: Disciplines: OT Outcomes Date/Time User Outcome 12/01/24 1102 SARAH Bynum/Alexsander Progressing 11/29/24 1605 SARAH Lpoez/Alexsander Progressing 11/29/24 1042 DONNA LopezA/Alexsander Progressing Goal Note filed on 12/01/24 1102 by SARAH Bynum/Alexsander Evaluation of progress towards goal: Occupational Therapy Care Plan (Resolved) There are no resolved problems. Principal Problem: Closed fracture of right hip, initial encounter ([facility] Cosigned by PROSPER Mckinley/Alexsander at 12/01/2024 11:42 AM EDT Associated attestation - Kim Washington OTR/Alexsander - 12/01/2024 11:42 AM EDT I have reviewed and agree with this note and education documentation for this visit. * Discharge Planning Note - DEREK Torres-P - 12/01/2024 10:43 AM EDT DISCHARGE PLANNING NOTE BLS transport confirmed via [facility] going to [facility] [place] on 12/01/2024 at 1400 * PT/OT/[facility] DIRECTOR - Stephania Barrios PTA - 12/01/2024 8:42 AM EDT Physical Therapy Treatment Discharge Recommendations for Safe Patient Transition PT Discharge Disposition Recommendation: Post acute - moderate PT Post Acute Moderate Rehab Needs: Recommend moderate intensity rehab, Tolerate 1-2 hrs of therapy3-5 days/wk Current Impairments Informing Therapy Recommendation: Ambulation status/safety, Fall risk, ADL status, Endurance level 6 Clicks: Basic Mobility Turning from your back to your side while in a flat bed without using bed rails?: A lot Moving from lying on your back to sitting on side of flat bed without using bed rails?: A lot Moving to and from bed to a chair (including w/c)?: Total Standing up from a chair using your arms (e.g. w/c or bedside chair)?: A lot To walk in hospital room?: Total Climbing 3-5 steps with a railing?: Total Scoring 6 Clicks: Basic Mobility Raw Score: 9 CMS G Code Modifier: CL PT Treatment/Interventions: Functional transfer training, LE strengthening/ROM, Endurance training,Patient/family training, Balance, Bed mobility, Gait training, Functional activities PT Frequency: Twice a Day PT Duration: LOS Assessment Patient Assessment Therapy Problem List: Decreased balance, Decreased endurance, Decreased mobility, Decreased LE ROM,Decreased LE strength Patient Response to Treatment: Slow progress, decreased activity tolerance Mood/Affect: Appropriate for circumstances Rehab Prognosis: Good, With continued PT status post acute discharge Visit RN Communication: Yes Medical Record Reviewed: Yes PT Type of Visit: Treatment Precautions Activity: early mobility pass Equipment: gait belt, kim stedy Telemetry/Flat Optical Element Maker: No Oxygen Used: 2 liters oxygen Other: fall risk Pain Assessment Pain Assessment: 0-10 Pain Score: 3 Pain Location: Hip Pain Orientation: Right Pain Intervention(s): Repositioned, Ambulation/increased activity Response to Interventions: Quiet, No grimacing Hearing / Speech / Vision Hearing: Within Functional Limits Speech: Within Functional Limits Bed Mobility Supine to Sit: Max assist (x2) Other: HOB slightly elevated with use of bedrail. increased time/effort required with 2 person assist. pt left in chair with call light in reach. RN aware Transfers Sit to Stand: Min assist (x2) Stand to Sit: Min assist (x2) Bed to Chair: Total assist Other: pt completes STS from EOB with min assist x2 for safety and kim stedy. verbal cues for overall technique. pt demos forward flexed posture. poor overall tolerance, fatigues quickly and reportsfeeling tired this morning. Gait Other: SHEILA Balance Sitting Balance: Static: Fair (-) Sitting Balance: Dynamic: Poor Standing Balance: Static: Poor Other: pt sitting at EOB total of 8 minutes in preparation for transfer, demos posterior and left sided lean with mod assist to maintain midline. pt static stand 1-2 minutes with BUE support from device. Activity Tolerance Endurance: Tolerates <30 minutes activity WITHOUT vital sign changes Other: limited by fatigue, weakness and decreased activity tolerance. 12/01/24 0842 LE Seated LE seated exercises performed? Yes Ankle pumps x Long arc quads x Seated marching x Other BLE AROM with rest breaks Repetitions 15 Plan Physical Therapy Care Plan Physical Therapy Care Plan (Active) Template: PT - Physical Therapy Problem: Activity Tolerance Dates: Start: 11/28/24 Disciplines: PT Goal: Tolerate > 30 minutes of activity WITHOUT rest breaks Dates: Start: 11/28/24 Expected End: 12/12/24 Description: Goal Description: Disciplines: PT Outcomes Date/Time User Outcome 12/01/24 1313 Stephania Barrios, ANIMAL HUSBANDRY MANAGER Progressing 11/30/24 1654 Nellie Ibarra, MEENU Not Progressing 11/29/24 1714 Nellie Ibarra, MEENU Progressing 11/29/24 1404 Nellie Ibarra PTA Progressing Goal Note filed on 11/30/24 1654 by Nellie Ibarra PTA Evaluation of progress towards goal: Problem: Bed Mobility Dates: Start: 11/28/24 Disciplines: PT Goal: Patient will perform bed mobility with Minimum Assist Dates: Start: 11/28/24 Expected End: 12/12/24 Description: Goal Description: Disciplines: PT Outcomes Date/Time User Outcome 12/01/24 1313 Stephania Barrios, ANIMAL HUSBANDRY MANAGER Progressing 11/30/24 1654 Nellie Ibarra, ANIMAL HUSBANDRY MANAGER Not Progressing 11/29/24 1714 Nellie Ibarra, MEENU Progressing 11/29/24 1404 Nellie Ibarra PTA Progressing Goal Note filed on 11/30/24 1654 by Nellie Ibarra PTA Evaluation of progress towards goal: Problem: Gait Dates: Start: 11/28/24 Disciplines: PT Goal: Patient will perform gait with Contact Guard Dates: Start: 11/28/24 Expected End: 12/12/24 Description: With__rw__,__150__feet Goal Description: Disciplines: PT Outcomes Date/Time User Outcome 11/30/24 1654 Nellie Ibarra PTA Not Progressing 11/29/24 1714 Nellie Ibarra PTA Progressing 11/29/24 1404 Nellie Ibarra PTA Progressing Goal Note filed on 11/30/24 1654 by Nellie Ibarra PTA Evaluation of progress towards goal: Problem: Strength Dates: Start: 11/28/24 Disciplines: PT Goal: Improve strength Dates: Start: 11/28/24 Expected End: 12/12/24 Description: Of extremity/ location:Complete 20 reps BLE ex's To facilitate: Disciplines: PT Outcomes Date/Time User Outcome 12/01/24 1313 Stephania Barrios, ANIMAL HUSBANDRY MANAGER Progressing 11/30/24 1654 Nellie Ibarra ANIMAL HUSBANDRY MANAGER Not Progressing 11/29/24 1714 Nellie Ibarra, ANIMAL HUSBANDRY MANAGER Progressing 11/29/24 1404 Nellie Ibarra PTA Progressing Goal Note filed on 11/30/24 1654 by Nellie Ibarra PTA Evaluation of progress towards goal: Problem: Transfers Dates: Start: 11/28/24 Disciplines: PT Goal: Patient will perform transfers with Minimum Assist Dates: Start: 11/28/24 Expected End: 12/12/24 Description: Goal Description: Disciplines: PT Outcomes Date/Time User Outcome 12/01/24 1313 Stephania Barrios, ANIMAL HUSBANDRY MANAGER Progressing 11/30/24 1654 Nellie Ibarra PTA Not Progressing 11/29/24 1714 Nellie Ibarra, ANIMAL HUSBANDRY MANAGER Progressing 11/29/24 1404 Nellie Ibarra PTA Progressing Goal Note filed on 11/30/24 1654 by Nellie Ibarra PTA Evaluation of progress towards goal: Physical Therapy Care Plan (Resolved) There are no resolved problems. Principal Problem: Closed fracture of right hip, initial encounter ([facility]) Cosigned by Julia Tyson, PT at 12/01/2024 2:43 PM EDT Associated attestation - Julia Tyson, PT - 12/01/2024 2:43 PM EDT I have reviewed and agree with this note and education documentation for this visit. * Plan of Care - Jeniffer Wade RN - 12/01/2024 12:48 AM EDT Problem: Pain Goal: Patient goal is pain score less than 4, able to rest, and participant in treatment plan as appropriate Description: INTERVENTIONS: 1. Encourage patient or legal warehouse representative to report early pain and ask for pain medicine when needed 2. Assess pain using appropriate pain scale and include the scale used when documenting 3. Administer analgesics based on type and severity of pain and evaluate response within appropriate time frame 4. Implement non-pharmacological measures as appropriate and evaluate response 5. Consider cultural and social influences on pain and pain management 6. Notify LIP if interventions ineffective or patient reports new pain 7. Monitor vital signs including pulse ox, end-tidal CO2 based on pain intervention 8. Reassess pain per policy 9. Teach patient or legal warehouse representative interventions for comforting Outcome: Progressing Note: Evaluation of progress towards goal: Patient resting in bed comfortably. Patient states PRN pain medication working to control her pain as directed. * PT/OT/CHILDREN'S MINISTRIES DIRECTOR - TIFFANY Forman - 11/30/2024 5:02 PM EDT Occupational Therapy Treatment Discharge Recommendations for Safe Patient Transition OT Discharge Disposition Recommendation: Post acute - moderate OT Post Acute Moderate Rehab Needs: Recommend moderate intensity rehab, Tolerate 1-2 hrs of therapy3-5 days/wk, Subacute or chronic functional impairment Current Impairments Informing Therapy Recommendation: Ambulation status/safety, Fall risk, ADL status, Endurance level Therapy Plan 6 Clicks: Daily Activity Putting on and taking off regular lower body clothing?: A lot Bathing (including washing, rinsing, drying)?: A lot Toileting, which includes using toilet, bedpan or urinal?: Total Putting on and taking off regular upper body clothing?: A lot Taking care of personal grooming such as brushing teeth?: A little Eating meals?: None Scoring Daily Activity Raw Score: 14 CMS G Code Modifier: CK 11/30/24 1444 UE ROM UE ROM exercises performed? Yes Scapular retraction x Shoulder flexion/extension x Shoulder horizontal abduction/adduction x Elbow flexion/extension x Other B UE ARom with cues and demo for tech. Repetitions 15 OT Treatment/Interventions: ADL retraining, Functional transfer training, UE strengthening/ROM, Endurance training, Patient/family training, Equipment eval/education, Balance, Bed mobility, Compensatory technique education, Functional activities OT Frequency: Twice a Day OT Duration: length of stay Assessment Patient Assessment Therapy Problem List: Decreased ADL status, Decreased balance, Decreased endurance, Decreased high-level ADLs, Decreased mobility, Decreased self-care trans, Decreased UE strength, Decreased LE strength Patient Response to Treatment: Slow progress, decreased activity tolerance Mood/Affect: Flat Rehab Prognosis: Fair, With continued OT status post acute discharge Visit RN Communication: Yes Medical Record Reviewed: Yes OT Type of Visit: Treatment Reason For Medical Deferral: Vitals outside safe parameters (ELEVATED BP PER RN) Precautions Activity: ok to tx per RN Equipment: gait belt, RW Weight Bearing Status: WBAT RLE Telemetry/Flat Optical Element Maker: No Oxygen Used: 2L Other: fall risk Pain Assessment Pain Assessment: No/denies pain ADL / IADL Hand Dominance: Right Where Assessed: Sitting at sink Grooming Assistance: Min assist Grooming Deficit: Increased time to complete, Wash/dry hands, Wash/dry face, Brushing hair Toilet/Commode Assistance: Total assist Toilet/Commode Deficit: (ex cath) Other: Pt very lethargic this date, increased time required to process, iniitiate and complete tasks. pt also with heavy R lateral and posterior lean requiring max vvt cues to correct throughout session. Rn notified. Home Management - IADL Other: Pt very lethargic this date, increased time required to process, iniitiate and complete tasks. pt also with heavy R lateral and posterior lean requiring max vvt cues to correct throughout session. Rn notified. Hearing / Speech / Vision Hearing: Within Functional Limits Speech: Within Functional Limits (soft spoken) Current Vision: Wears glasses all the time Cognition Overall Cognitive Status: Exceptions to Within Functional Limits Arousal/Alertness: Delayed responses to stimuli Attention Span: Attends with cues to redirect Memory: Decreased recall of precautions, Decreased recall of recent events Orientation Level: Disoriented to place, Disoriented to month, Disoriented to time, Oriented to person Following Commands: Follows one step commands with increased time, Follows one step commands with repetition Safety Judgment: Decreased awareness of need for assistance, Decreased awareness of need for safety Awareness of Errors: Assistance required to identify errors made, Assistance required to correct errors made Insight of Deficits: Decreased awareness of deficits Problem Solving: Assistance required to generate solutions, Assistance required to implement solutions Interfering Components: Attention - sustained, Processing speed Other: Pt lethargic this date, pleasantly confused, increased time to process, initiate and complete all tasks. Bed Mobility Supine to Sit: Max assist, Verbal cues, Visual cues, Tactile cues, Right (x2 with HOB elevated, maxcues for sequencing, NIKOLSKI assist for hand placement, max A for trunk righting and LE transition to EOB.) Sit to Supine: (pt remained in recliner at end of session.) Other: pt requires much increased time/effort with max A x 2 for supine to sit this date requiring encouragement to participate as pt would prefer conventional mortgage underwriter assist. pt retired to recliner at end of session, positioned with pillows for comfort, call light in reach, Rn aware. Sling placed in chair for staff's use later. Transfers Sit to Stand: Mod assist, Verbal cues, Visual cues, Tactile cues (x2 from elevated EOB within Kim Stedy) Stand to Sit: Mod assist, Verbal cues, Visual cues, Tactile cues (x2 for controlled decent.) Bed to Chair: Total assist, Verbal cues, Visual cues, Tactile cues (Ikm Stedy) Other: pt lethargic today requiring increased time to process cues, poor sitting balance, Kim Stedy used for transfer from EOB to chair. STS required Mod A x 2 with max cues for tech/safety with R lateral and heavy forward flexed lean requiring max A For correction. poor tolerance to actvity this date. Gait Other: poor sitting balance, poor activity tolerance d/t lethargy, gait not appropriate. Balance Sitting Balance: Static: Fair, Poor (fair -/poor+) Sitting Balance: Dynamic: Poor Standing Balance: Static: Poor Standing Balance: Dynamic: Poor Other: pt with heavy R lateral and interm posterior lean while sitting EOB requiring Mod A to maintain balance; pt with forward flexed posture and R lateral lean in standing. max cues for correction with poor follow through. Activity Tolerance Endurance: Tolerates 30 minutes activity with rest breaks Other: Frequent rest breaks require due to lethargy this date. BPs monitored throughout tx and wereelevated - RN aware and present during assessments. Increased time to allow for pt participation this session. Plan Occupational Therapy Care Plan Occupational Therapy Care Plan (Active) Template: OT - Occupational Therapy Problem: Activity Tolerance Dates: Start: 11/28/24 Disciplines: OT Goal: Tolerate > 30 minutes of activity WITH rest breaks Dates: Start: 11/28/24 Expected End: 12/26/24 Description: Goal Description: Disciplines: OT Outcomes Date/Time User Outcome 11/29/24 1605 SARAH Lopez/Alexsander Progressing 11/29/24 1042 SARAH Lopez/Alexsander Progressing Problem: Bathing LB Dates: Start: 11/28/24 Disciplines: OT Goal: Patient will perform bathing LB with Stand By Assist Dates: Start: 11/28/24 Expected End: 12/26/24 Description: Goal Description: Disciplines: OT Problem: Bathing UB Dates: Start: 11/28/24 Disciplines: OT Goal: Patient will perform bathing UB with Stand By Assist Dates: Start: 11/28/24 Expected End: 12/26/24 Description: Goal Description: Disciplines: OT Problem: Bed Mobility Dates: Start: 11/28/24 Disciplines: OT Goal: Patient will perform bed mobility with Modified Becker Dates: Start: 11/28/24 Expected End: 12/26/24 Description: Goal Description: Disciplines: OT Outcomes Date/Time User Outcome 11/29/24 1605 DONNA LopezA/Alexsander Progressing 11/29/24 1042 DONNA LopezA/Alexsander Progressing Problem: Dressing LB Dates: Start: 11/28/24 Disciplines: OT Goal: Patient will perform dressing LB with Modified Becker Dates: Start: 11/28/24 Expected End: 12/26/24 Description: Goal Description: Disciplines: OT Problem: Dressing UB Dates: Start: 11/28/24 Disciplines: OT Goal: Patient will perform dressing UB Independently Dates: Start: 11/28/24 Expected End: 12/26/24 Description: Goal Description: Disciplines: OT Problem: Functional Mobility Dates: Start: 11/28/24 Disciplines: OT Goal: Patient will perform functional mobility Independently Dates: Start: 11/28/24 Expected End: 12/26/24 Description: Goal Description: Disciplines: OT Outcomes Date/Time User Outcome 11/29/24 1605 DONNA LopezA/Alexsander Progressing 11/29/24 1042 SARAH Lopez/Alexsander Progressing Problem: Grooming Dates: Start: 11/28/24 Disciplines: OT Goal: Patient will perform grooming Independently Dates: Start: 11/28/24 Expected End: 12/26/24 Description: Goal Description: Disciplines: OT Outcomes Date/Time User Outcome 11/29/24 160Maninder DONNA LopezA/Alexsander Progressing Problem: ROM Dates: Start: 11/28/24 Problem: Sitting Balance Dates: Start: 11/28/24 Disciplines: OT Goal: Improve balance to good Dates: Start: 11/28/24 Expected End: 12/26/24 Description: Static Dynamic Disciplines: OT Outcomes Date/Time User Outcome 11/29/24 1605 Jodie Brown SMITH/L Progressing 11/29/24 1042 DONNA LopezA/Alexsander Progressing Problem: Standing Balance Dates: Start: 11/28/24 Disciplines: OT Goal: Improve balance to good Dates: Start: 11/28/24 Expected End: 12/26/24 Description: Static Dynamic Disciplines: OT Outcomes Date/Time User Outcome 11/29/24 160Maninder DONNA LopezA/Alexsander Progressing 11/29/24 1042 DONNA LopezA/Alexsander Progressing Problem: Strength Dates: Start: 11/28/24 Disciplines: OT Goal: Improve strength Dates: Start: 11/28/24 Expected End: 12/26/24 Description: Of extremity/ location:Patient will demo B UE HEP independently To facilitate: To improve ind with ADLs and functional transfers/mobility. Disciplines: OT Problem: Toilet Transfers Dates: Start: 11/28/24 Disciplines: OT Goal: Patient will perform toilet transfers with Modified Becker Dates: Start: 11/28/24 Expected End: 12/26/24 Description: Goal Description: Disciplines: OT Problem: Toileting Dates: Start: 11/28/24 Disciplines: OT Goal: Patient will perform toileting with Modified Becker Dates: Start: 11/28/24 Expected End: 12/26/24 Description: Goal Description: Disciplines: OT Problem: Transfers Dates: Start: 11/28/24 Disciplines: OT Goal: Patient will perform transfers with Modified Becker Dates: Start: 11/28/24 Expected End: 12/26/24 Description: Goal Description: Disciplines: OT Outcomes Date/Time User Outcome 11/29/24 1605 TIFFANY Lopez Progressing 11/29/24 1042 TIFFANY Lopez Progressing Occupational Therapy Care Plan (Resolved) There are no resolved problems. Principal Problem: Closed fracture of right hip, initial encounter ([facility]) Cosigned by DOMENICA Mckinley at 12/01/2024 7:23 AM EDT Associated attestation - Kim Washington OTR/L - 12/01/2024 7:23 AM EDT I have reviewed and agree with this note and education documentation for this visit. * PT/OT/CHILDREN'S MINISTRIES DIRECTOR - Nellie Ibarra PTA - 11/30/2024 1:58 PM EDT Physical Therapy Treatment Discharge Recommendations for Safe Patient Transition PT Discharge Disposition Recommendation: Post acute - moderate PT Post Acute Moderate Rehab Needs: Recommend moderate intensity rehab, Tolerate 1-2 hrs of therapy3-5 days/wk, Subacute or chronic functional impairment Current Impairments Informing Therapy Recommendation: Ambulation status/safety, Cognition, Fall risk, ADL status, Endurance level 6 Clicks: Basic Mobility Turning from your back to your side while in a flat bed without using bed rails?: A lot Moving from lying on your back to sitting on side of flat bed without using bed rails?: A lot Moving to and from bed to a chair (including w/c)?: Total Standing up from a chair using your arms (e.g. w/c or bedside chair)?: A lot To walk in hospital room?: Total Climbing 3-5 steps with a railing?: Total Scoring 6 Clicks: Basic Mobility Raw Score: 9 [facility] G Code Modifier: CL Therapy Plan PT Treatment/Interventions: Functional transfer training, LE strengthening/ROM, Endurance training,Patient/family training, Equipment eval/education, Balance, Bed mobility, Gait training, Functionalactivities PT Frequency: Twice a Day PT Duration: LOS Assessment Patient Assessment Therapy Problem List: Decreased ADL status, Decreased balance, Decreased endurance, Decreased high-level ADLs, Decreased mobility, Decreased self-care trans, Decreased UE strength, Decreased LE strength Patient Response to Treatment: Slow progress, decreased activity tolerance Mood/Affect: Flat Rehab Prognosis: Fair, With continued PT status post acute discharge Visit RN Communication: Yes Medical Record Reviewed: Yes PT Type of Visit: Treatment Precautions Activity: ok to tx per RN Equipment: gait belt, RW Weight Bearing Status: WBAT RLE Telemetry/Flat Optical Element Maker: No Oxygen Used: 2L Other: fall risk Pain Assessment Pain Assessment: No/denies pain Hearing / Speech / Vision Hearing: Within Functional Limits Speech: Within Functional Limits Current Vision: Wears glasses all the time Cognition Overall Cognitive Status: Exceptions to Within Functional Limits Arousal/Alertness: Delayed responses to stimuli Attention Span: Difficulty attending to directions, Difficulty dividing attention Memory: Decreased recall of precautions, Decreased recall of recent events Orientation Level: Disoriented to month, Disoriented to place, Oriented to person Following Commands: Follows one step commands with increased time, Follows one step commands with repetition Safety Judgment: Decreased awareness of need for assistance, Decreased awareness of need for safety Awareness of Errors: Assistance required to identify errors made, Assistance required to correct errors made Insight of Deficits: Decreased awareness of deficits Problem Solving: Assistance required to generate solutions, Assistance required to implement solutions Interfering Components: Attention - sustained, Processing speed Other: Pt with increased confusion and slow info processing this PM. Increased time required to complete all mobility tasks. Bed Mobility Supine to Sit: Max assist (x2) Other: Pt supine upon arrival to session. Assisted to EOB with MAX A x2 for trunk and BLE suppoort.Pt also required MAX cueing and encouragement to initiate movements rather than allow conventional mortgage underwriter to perform them for her. Pt denied dizziness with positional change. Heavy posterior and R lateral trunk lean/unsteadiness noted. MOD A required to maintain upright positioning with MAX verbal visual and tactile cueing as well. Poor carryover noted. Positioned repositioning sling underneath pt for future staff transfers if needed. Ended tx with call light in reach, all needs met, ice applied to R hip, RN aware. Transfers Sit to Stand: Mod assist (x2) Stand to Sit: Mod assist (x2) Bed to Chair: Total assist (kim stedy) Other: Pt completed transfers this session with MOD A x2 for trunk support and safety and use of kim stedy for UE support. Pt displayed heavy R lateral trunk lean in standing. Education provided on technique of transition, safe hand placement, use of momentum, and posture correction upon stnading to imrpve technique. Unable to assess further transfers at this time d/t poor standing balance and tolerance. Recommend use of maxi jhonny lift for safe staff transfers if pt is too fatigued for kim abelardody later this PM. Gait Other: SHEILA this session d/t increased weakness, unsteadiness, and decreased activity tolerance. 11/30/24 1358 LE Seated LE seated exercises performed? Yes Ankle pumps x Long arc quads x Seated marching x Other VVT cues for technique and sequencing. AAROM as needed for RLE Repetitions 10-15x Neuro Re-ed LE exercises performed? Yes Seated supported x Weightbearing x (L<>R sitting- mirror technique with conventional mortgage underwriter sitting in front of pt) Seated unsupported x (at EOB) Standing alignment x (in kim zhoujuan antonio) Balance Sitting Balance: Static: Fair, Poor (fair-/poor) Sitting Balance: Dynamic: Poor Standing Balance: Static: Poor Other: Pt required MOD A to maintain upright position when sitting unsupported at EOB in prep for transfer and during seated LE exercises. Heavy R lateral and intermittent posterior trunk lean present. R Lateral and compensating posterior trunk lean d/t heavy forward head/trunk posture noted in standing. Pt had difficulty correcting balance and posture with conventional mortgage underwriter's verbal cueing- required tactile and visual cues as well as assist to correct. Activity Tolerance Endurance: Tolerates 30 minutes activity with rest breaks Other: Frequent rest breaks required. Pt fatigued very quickly with inreased activity. BPs monitored throughout tx- were elevated and RN aware and present during assessments. Pt with increased difficulty completing all mobility tasks this session- RN aware. Plan Physical Therapy Care Plan Physical Therapy Care Plan (Active) Template: PT - Physical Therapy Problem: Activity Tolerance Dates: Start: 11/28/24 Disciplines: PT Goal: Tolerate > 30 minutes of activity WITHOUT rest breaks Dates: Start: 11/28/24 Expected End: 12/12/24 Description: Goal Description: Disciplines: PT Outcomes Date/Time User Outcome 11/30/24 1654 Nellie Ibarra PTA Not Progressing 11/29/24 1714 Nellie Ibarra PTA Progressing 11/29/24 1404 Nellie Ibarra PTA Progressing Goal Note filed on 11/30/241653 by Nellie Ibarra PTA Evaluation of progress towards goal: Problem: Bed Mobility Dates: Start: 11/28/24 Disciplines: PT Goal: Patient will perform bed mobility with Minimum Assist Dates: Start: 11/28/24 Expected End: 12/12/24 Description: Goal Description: Disciplines: PT Outcomes Date/Time User Outcome 11/30/24 1654 Nellie Ibarra ANIMAL HUSBANDRY MANAGER Not Progressing 11/29/24 1714 Nellie Ibarra, ANIMAL HUSBANDRY MANAGER Progressing 11/29/24 1404 Nellie Ibarra PTA Progressing Goal Note filed on 11/30/24 165 by Nellie Ibarra PTA Evaluation of progress towards goal: Problem: Gait Dates: Start: 11/28/24 Disciplines: PT Goal: Patient will perform gait with Contact Guard Dates: Start: 11/28/24 Expected End: 12/12/24 Description: With__rw__,__150__feet Goal Description: Disciplines: PT Outcomes Date/Time User Outcome 11/30/24 1654 Nellie Ibarra PTA Not Progressing 11/29/24 1714 Nellie Ibarra, ANIMAL HUSBANDRY MANAGER Progressing 11/29/24 1404 Nellie Ibarra PTA Progressing Goal Note filed on 11/30/241653 by Nellie Ibarra PTA Evaluation of progress towards goal: Problem: Strength Dates: Start: 11/28/24 Disciplines: PT Goal: Improve strength Dates: Start: 11/28/24 Expected End: 12/12/24 Description: Of extremity/ location:Complete 20 reps BLE ex's To facilitate: Disciplines: PT Outcomes Date/Time User Outcome 11/30/244 Nellie Ibarra PTA Not Progressing 11/29/24 1714 Nellie Ibarra, ANIMAL HUSBANDRY MANAGER Progressing 11/29/24 1404 Nellie Ibarra PTA Progressing Goal Note filed on 11/30/241653 by Nellie Ibarra PTA Evaluation of progress towards goal: Problem: Transfers Dates: Start: 11/28/24 Disciplines: PT Goal: Patient will perform transfers with Minimum Assist Dates: Start: 11/28/24 Expected End: 12/12/24 Description: Goal Description: Disciplines: PT Outcomes Date/Time User Outcome 11/30/24 1654 Nellie Ibarra PTA Not Progressing 11/29/24 1714 Nellie Ibarra PTA Progressing 11/29/24 1404 Nellie Ibarra PTA Progressing Goal Note filed on 11/30/241653 by Nellie Ibarra PTA Evaluation of progress towards goal: Physical Therapy Care Plan (Resolved) There are no resolved problems. Principal Problem: Closed fracture of right hip, initial encounter ([facility]) Cosigned by Julia Tyson, PT at 12/01/2024 7:50 AM EDT Associated attestation Julia Parada PT - 12/01/2024 7:50 AM EDT I have reviewed and agree with this note and education documentation for this visit. * PT/OT/[employer]ILDR[employer] DIRECTOR - SARAH Forman/Alexsander - 11/30/2024 10:45 AM EDT Occupational Therapy OT Type of Visit: Medical deferral Reason For Medical Deferral: Vitals outside safe parameters (ELEVATED BP PER RN) Cosigned by PROSPER Mckinley/Alexsander at 12/01/2024 7:23 AM EDT Associated Kim Oro OTR/Alexsander - 12/01/2024 7:23 AM EDT I have reviewed and agree with this note and education documentation for this visit. * PT/OT/CHILDREN[employer]S [employer]IST[employer] DIRECTOR - Nellie Ibarra PTA - 11/30/2024 9:20 AM EDT Physical Therapy PT Type of Visit: Medical deferral Reason For Medical Deferral: RN deems inappropriate, Vitals outside safe parameters (Defer tx at this time per RN d/t elevated BP. Will attempt back when appropriate.) Cosigned by Connor Carreon, PT at 11/30/2024 11:15 AM EDT Associated attestation - Connor Carreon, PT - 11/30/2024 11:15 AM EDT I have reviewed and agree with this note and education documentation for this visit. * Plan of Care - Terra Etienne RN - 11/30/2024 8:53 AM EDT Problem: Pain Goal: Patient goal is pain score less than 4, able to rest, and participant in treatment plan as appropriate Description: INTERVENTIONS: 1. Encourage patient or legal warehouse representative to report early pain and ask for pain medicine when needed 2. Assess pain using appropriate pain scale and include the scale used when documenting 3. Administer analgesics based on type and severity of pain and evaluate response within appropriate time frame 4. Implement non-pharmacological measures as appropriate and evaluate response 5. Consider cultural and social influences on pain and pain management 6. Notify LIP if interventions ineffective or patient reports new pain 7. Monitor vital signs including pulse ox, end-tidal CO2 based on pain intervention 8. Reassess pain per policy 9. Teach patient or legal warehouse representative interventions for comforting Outcome: Progressing Note: Evaluation of progress towards goal: Pt states current pain regimen relieves pain. Prn meds available. Pt encouraged to express needs for pain medication on a scale of 1-10. Vitals signs being monitored per policy. Problem: Safety Goal: Patient will be injury free during hospitalization Description: INTERVENTIONS: 1. Assess patient's risk for falls and implement fall prevention plan of care per policy 2. Provide and maintain a safe environment 3. Proper use of double Identifiers 4. Medication administration using the 5 rights 5. Hand hygiene 6. Specimens are labeled at the bedside 7. Instruct patient/ patient warehouse representative about use of safety devices 8. Include patient/ patient warehouse representative in decisions related to safety Outcome: Progressing Note: Evaluation of progress towards goal: RN implementing the above precautions to maintain pt safety. Pt remains free from falls and injuries since beginning of shift. Call light within reach. Bed rails up x2. Orientation reviewed. Hourly rounded maintained. Proper use of double identifiers used.Standard precautions maintained. * Plan of Care - Terra Etienne RN - 11/30/2024 8:45 AM EDT Problem: Pain Goal: Patient goal is pain score less than 4, able to rest, and participant in treatment plan as appropriate Description: INTERVENTIONS: 1. Encourage patient or legal warehouse representative to report early pain and ask for pain medicine when needed 2. Assess pain using appropriate pain scale and include the scale used when documenting 3. Administer analgesics based on type and severity of pain and evaluate response within appropriate time frame 4. Implement non-pharmacological measures as appropriate and evaluate response 5. Consider cultural and social influences on pain and pain management 6. Notify LIP if interventions ineffective or patient reports new pain 7. Monitor vital signs including pulse ox, end-tidal CO2 based on pain intervention 8. Reassess pain per policy 9. Teach patient or legal warehouse representative interventions for comforting 11/30/2024 09 by BRIAN Ellison Outcome: Progressing Note: Evaluation of progress towards goal: Pt states current pain regimen relieves pain. Prn meds available. Pt encouraged to express needs for pain medication on a scale of 1-10. Vitals signs being monitored per policy. 11/30/2024 08 by RBIAN Ellison Outcome: Progressing Note: Evaluation of progress towards goal: Pt states current pain regimen relieves pain. Prn meds available. Pt encouraged to express needs for pain medication on a scale of 1-10. Vitals signs being monitored per policy. Problem: Safety Goal: Patient will be injury free during hospitalization Description: INTERVENTIONS: 1. Assess patient's risk for falls and implement fall prevention plan of care per policy 2. Provide and maintain a safe environment 3. Proper use of double Identifiers 4. Medication administration using the 5 rights 5. Hand hygiene 6. Specimens are labeled at the bedside 7. Instruct patient/ patient warehouse representative about use of safety devices 8. Include patient/ patient warehouse representative in decisions related to safety 11/30/2024906 by BRIAN Ellison Outcome: Progressing Note: Evaluation of progress towards goal: RN implementing the above precautions to maintain pt safety. Pt remains free from falls and injuries since beginning of shift. Call light within reach. Bed rails up x2. Orientation reviewed. Hourly rounded maintained. Proper use of double identifiers used.Standard precautions maintained. 11/30/2024 0852 by BRIAN Ellison Outcome: Progressing Note: Evaluation of progress towards goal: RN implementing the above precautions to maintain pt safety. Pt remains free from falls and injuries since beginning of shift. Call light within reach. Bed rails up x2. Orientation reviewed. Hourly rounded maintained. Proper use of double identifiers used.Standard precautions maintained. * Plan of Care - Jeniffer Wade RN - 11/29/2024 8:24 PM EDT Problem: Pain Goal: Patient goal is pain score less than 4, able to rest, and participant in treatment plan as appropriate Description: INTERVENTIONS: 1. Encourage patient or legal warehouse representative to report early pain and ask for pain medicine when needed 2. Assess pain using appropriate pain scale and include the scale used when documenting 3. Administer analgesics based on type and severity of pain and evaluate response within appropriate time frame 4. Implement non-pharmacological measures as appropriate and evaluate response 5. Consider cultural and social influences on pain and pain management 6. Notify LIP if interventions ineffective or patient reports new pain 7. Monitor vital signs including pulse ox, end-tidal CO2 based on pain intervention 8. Reassess pain per policy 9. Teach patient or legal warehouse representative interventions for comforting Outcome: Progressing Note: Evaluation of progress towards goal: Patient states pain is well controlled with PRN pain medication. Patient does not complain of any pain at this time. * PT/OT/CHILDR[employer]IST[employer] DIRECTOR - TIFFANY Lopez - 11/29/2024 4:31 PM EDT Occupational Therapy Treatment Discharge Recommendations for Safe Patient Transition OT Discharge Disposition Recommendation: Post acute - moderate OT Post Acute Moderate Rehab Needs: Recommend moderate intensity rehab, Tolerate 1-2 hrs of therapy3-5 days/wk, Subacute or chronic functional impairment Current Impairments Informing Therapy Recommendation: Ambulation status/safety, Fall risk, ADL status, Endurance level 6 Clicks: Daily Activity Putting on and taking off regular lower body clothing?: A lot Bathing (including washing, rinsing, drying)?: A lot Toileting, which includes using toilet, bedpan or urinal?: A lot Putting on and taking off regular upper body clothing?: A lot Taking care of personal grooming such as brushing teeth?: A little Eating meals?: None Scoring Daily Activity Raw Score: 15 CMS G Code Modifier: CK OT Treatment/Interventions: ADL retraining, Functional transfer training, UE strengthening/ROM, Endurance training, Patient/family training, Equipment eval/education, Balance, Bed mobility, Compensatory technique education, Functional activities OT Frequency: Twice a Day OT Duration: length of stay Assessment Patient Assessment Therapy Problem List: Decreased ADL status, Decreased balance, Decreased endurance, Decreased high-level ADLs, Decreased mobility, Decreased self-care trans, Decreased UE strength, Decreased LE strength Patient Response to Treatment: Slow progress, decreased activity tolerance Mood/Affect: Appropriate for circumstances Rehab Prognosis: Good, With continued OT status post acute discharge Visit RN Communication: Yes Medical Record Reviewed: Yes OT Type of Visit: Treatment Precautions Activity: Okay to see per RN Equipment: gait belt, RW Weight Bearing Status: WBAT RLE Telemetry/Flat Optical Element Maker: No Oxygen Used: room air (applied 2L w/ activity) Other: fall risk Pain Assessment Pain Assessment: 0-10 Pain Score: 5 Pain Location: Buttocks, Groin Pain Orientation: Right Pain Intervention(s): Repositioned, Ambulation/increased activity Response to Interventions: Quiet, No grimacing ADL / IADL Hand Dominance: Right Where Assessed: Sitting at sink, Chair Grooming Assistance: Setup, Standby assist (seated) Grooming Deficit: Oral hygiene LE Dressing Assistance: Max assist LE Dressing Deficit: Don/doff brief Footwear Assistance: Total assist Footwear Deficit: Don/doff compression hose, R shoe, L shoe Other: Pt sat at sink to complete grooming tasks. Stood at chair for brief change and genaro care with max A to complete in standing. Home Management - IADL Other: Pt sat at sink to complete grooming tasks. Stood at chair for brief change and genaro care with max A to complete in standing. Hearing / Speech / Vision Hearing: Within Functional Limits Speech: Within Functional Limits Current Vision: Wears glasses all the time Cognition Orientation Level: Oriented X4 Bed Mobility Supine to Sit: Mod assist (x2) Sit to Supine: Mod assist Other: Pt in chair upon arrival, pt returned to supine at end of session with mod A to progress BLEs. Call light within reach, RN aware. Transfers Sit to Stand: Mod assist, Min assist Stand to Sit: Mod assist Bed to Chair: Mod assist (x2) Other: Pt initially with difficulty coming to standing d/t poor technique. Software Architect demonstrated rocking technique for momentum with good pt carryover, requiring mod x1 and min x1 to stand. Pt continues to demo heavy posterior lean in standing which requires mod A to correct. Gait Gait Assistance: Mod assist (x2) Assistive Device: Rolling walker Gait Distance: 5' + 4' Limiting Factors to Gait: Fatigue, Weakness Other: Pt completed functional mobility 5' forward with chair follow for safety and 4' back to bed.BUE support on RW. Heavy cueing required for proper sequencing, posture, and anterior weight shifting with fair to poor carryover as pt still required physical A to progress walker and RLE at times. Further ambulation limited by poor endurance. Balance Sitting Balance: Static: Fair Sitting Balance: Dynamic: Fair (-) Standing Balance: Static: Fair (-) Standing Balance: Dynamic: Poor Other: Pt sat at sink 4-5 mins for oral care. Pt able to intermittently sit forward in chair. Moderate R lateral lean noted which pt was aware of and was able to correct. Pt continues to have heavy posterior lean in standing/ambulation reuiring mod A to correct. Activity Tolerance Endurance: Tolerates 30 minutes activity with rest breaks Other: Pt saturating in low 90s on room air upon arrival. Pt desatted to mid 80s with activity, 2L applied for rest of session w/ SpO2 then remaining WNL. Plan Occupational Therapy Care Plan Occupational Therapy Care Plan (Active) Template: OT - Occupational Therapy Problem: Activity Tolerance Dates: Start: 11/28/24 Disciplines: OT Goal: Tolerate > 30 minutes of activity WITH rest breaks Dates: Start: 11/28/24 Expected End: 12/26/24 Description: Goal Description: Disciplines: OT Outcomes Date/Time User Outcome 11/29/24 1605 SARAH Lopez/Alexsander Progressing 11/29/24 1042 TIFFANY Lopez Progressing Problem: Bathing LB Dates: Start: 11/28/24 Disciplines: OT Goal: Patient will perform bathing LB with Stand By Assist Dates: Start: 11/28/24 Expected End: 12/26/24 Description: Goal Description: Disciplines: OT Problem: Bathing UB Dates: Start: 11/28/24 Disciplines: OT Goal: Patient will perform bathing UB with Stand By Assist Dates: Start: 11/28/24 Expected End: 12/26/24 Description: Goal Description: Disciplines: OT Problem: Bed Mobility Dates: Start: 11/28/24 Disciplines: OT Goal: Patient will perform bed mobility with Modified Becker Dates: Start: 11/28/24 Expected End: 12/26/24 Description: Goal Description: Disciplines: OT Outcomes Date/Time User Outcome 11/29/24 1605 ASRAH Lopez/Alexsander Progressing 11/29/24 1042 SARAH Lopez/Alexsander Progressing Problem: Dressing LB Dates: Start: 11/28/24 Disciplines: OT Goal: Patient will perform dressing LB with Modified Becker Dates: Start: 11/28/24 Expected End: 12/26/24 Description: Goal Description: Disciplines: OT Problem: Dressing UB Dates: Start: 11/28/24 Disciplines: OT Goal: Patient will perform dressing UB Independently Dates: Start: 11/28/24 Expected End: 12/26/24 Description: Goal Description: Disciplines: OT Problem: Functional Mobility Dates: Start: 11/28/24 Disciplines: OT Goal: Patient will perform functional mobility Independently Dates: Start: 11/28/24 Expected End: 12/26/24 Description: Goal Description: Disciplines: OT Outcomes Date/Time User Outcome 11/29/24 160SARAH Martines/Alexsander Progressing 11/29/24 1042 SARAH Lopez/Alexsander Progressing Problem: Grooming Dates: Start: 11/28/24 Disciplines: OT Goal: Patient will perform grooming Independently Dates: Start: 11/28/24 Expected End: 12/26/24 Description: Goal Description: Disciplines: OT Outcomes Date/Time User Outcome 11/29/24 160SARAH Martines/Alexsander Progressing Problem: ROM Dates: Start: 11/28/24 Problem: Sitting Balance Dates: Start: 11/28/24 Disciplines: OT Goal: Improve balance to good Dates: Start: 11/28/24 Expected End: 12/26/24 Description: Static Dynamic Disciplines: OT Outcomes Date/Time User Outcome 11/29/24 160SARAH Martines/L Progressing 11/29/24 1042 DONNA LopezA/Alexsander Progressing Problem: Standing Balance Dates: Start: 11/28/24 Disciplines: OT Goal: Improve balance to good Dates: Start: 11/28/24 Expected End: 12/26/24 Description: Static Dynamic Disciplines: OT Outcomes Date/Time User Outcome 11/29/24 1605 DONNA LopezA/Alexsander Progressing 11/29/24 1042 SARAH Lopez/Alexsander Progressing Problem: Strength Dates: Start: 11/28/24 Disciplines: OT Goal: Improve strength Dates: Start: 11/28/24 Expected End: 12/26/24 Description: Of extremity/ location:Patient will demo B UE HEP independently To facilitate: To improve ind with ADLs and functional transfers/mobility. Disciplines: OT Problem: Toilet Transfers Dates: Start: 11/28/24 Disciplines: OT Goal: Patient will perform toilet transfers with Modified Becker Dates: Start: 11/28/24 Expected End: 12/26/24 Description: Goal Description: Disciplines: OT Problem: Toileting Dates: Start: 11/28/24 Disciplines: OT Goal: Patient will perform toileting with Modified Becker Dates: Start: 11/28/24 Expected End: 12/26/24 Description: Goal Description: Disciplines: OT Problem: Transfers Dates: Start: 11/28/24 Disciplines: OT Goal: Patient will perform transfers with Modified Becker Dates: Start: 11/28/24 Expected End: 12/26/24 Description: Goal Description: Disciplines: OT Outcomes Date/Time User Outcome 11/29/24 1605 SARAH Lopez/Alexsander Progressing 11/29/24 1042 DONNA LopezA/Alexsander Progressing Occupational Therapy Care Plan (Resolved) There are no resolved problems. Principal Problem: Closed fracture of right hip, initial encounter ([facility]) Cosigned by Sharon Napire OT/L at 11/30/2024 6:53 AM EDT Associated attestation - Sharon Napier OT/L - 11/30/2024 6:53 AM EDT I have reviewed and agree with this note and education documentation for this visit. * PT/OT/CHILDREN'S MINISTRIES DIRECTOR - Nellie Ibarra PTA - 11/29/2024 2:17 PM EDT Physical Therapy Treatment (BID) Discharge Recommendations for Safe Patient Transition PT Discharge Disposition Recommendation: Post acute - moderate PT Post Acute Moderate Rehab Needs: Recommend moderate intensity rehab, Tolerate 1-2 hrs of therapy3-5 days/wk, Subacute or chronic functional impairment Current Impairments Informing Therapy Recommendation: Ambulation status/safety, Fall risk, ADL status, Endurance level 6 Clicks: Basic Mobility Turning from your back to your side while in a flat bed without using bed rails?: A little Moving from lying on your back to sitting on side of flat bed without using bed rails?: A lot Moving to and from bed to a chair (including w/c)?: A lot Standing up from a chair using your arms (e.g. w/c or bedside chair)?: A lot To walk in hospital room?: A lot Climbing 3-5 steps with a railing?: Total Scoring 6 Clicks: Basic Mobility Raw Score: 12 CMS G Code Modifier: CL Therapy Plan PT Treatment/Interventions: Functional transfer training, LE strengthening/ROM, Endurance training,Patient/family training, Equipment eval/education, Balance, Bed mobility, Gait training, Functionalactivities PT Frequency: Twice a Day PT Duration: LOS Assessment Patient Assessment Therapy Problem List: Decreased ADL status, Decreased balance, Decreased endurance, Decreased high-level ADLs, Decreased mobility, Decreased self-care trans, Decreased UE strength, Decreased LE strength Patient Response to Treatment: Progressing toward goals Mood/Affect: Appropriate for circumstances Rehab Prognosis: Good, With continued PT status post acute discharge Visit RN Communication: Yes Medical Record Reviewed: Yes PT Type of Visit: Treatment (BID) Precautions Activity: ok to tx per RN Equipment: gait belt, RW, external female catheter Weight Bearing Status: WBAT R LE Telemetry/Flat Optical Element Maker: No Oxygen Used: room air (inc to 2L with activity) Other: Fall risk Pain Assessment Pain Assessment: 0-10 Pain Score: 5 Pain Location: Hip, Groin, Buttocks Pain Orientation: Right Pain Intervention(s): Repositioned, Ambulation/increased activity Response to Interventions: Pain unchanged, Quiet Hearing / Speech / Vision Hearing: Within Functional Limits Speech: Within Functional Limits Current Vision: Wears glasses all the time Cognition Overall Cognitive Status: Within Functional Limits, Exceptions to Within Functional Limits Attention Span: Attends with cues to redirect Orientation Level: Oriented X4 Following Commands: Follows one step commands with increased time, Follows one step commands with repetition Safety Judgment: Decreased awareness of need for assistance, Decreased awareness of need for safety Awareness of Errors: Assistance required to identify errors made, Assistance required to correct errors made Other: Increased time required to complete mobility tasks- intermittent repetition of instructions provided. Bed Mobility Sit to Supine: Mod assist (x2) Other: Pt sitting in recliner upon arrival to session. Assisted back to bed at end of tx with HOB flattened. MOD A x2 required for trunk and BLE support OOB. Ended tx with call light in reach, ice applied to L hip, RN notified. Transfers Sit to Stand: Mod assist, Min assist (MIN A x1, MOD A x1) Stand to Sit: Mod assist Other: Pt completed several transfer attempts this PM with MIN A x1 and MOD A x1 for trunk support and assist into full, erect stand. Pt demonstrated a heavy posterior trunk lean with compensating forward flexed posture, requiring MOD A to corect and assist with weight shifting forward. Pt displayed poor carryover with weight shifting at this time, and is unable to complete without assist. MOD A provided for eccentric control with sitting. Education provided on technique of transitions, safe hand placement, and use of momentum to ease standing. Gait Base of Support: Narrow Pattern: Decreased garth, Antalgic gait, R Decreased heel strike, L Decreased heel strike, R Decreased foot clearance, L Decreased foot clearance, Forward trunk, R Decreased stance time, R Flexed knee Gait Assistance: Mod assist (x2) Assistive Device: Rolling walker Gait Distance: 5', 4' Limiting Factors to Gait: Fatigue, Weakness, Pain Other: Pt completed two short ambulation bouts within room with MOD A x2 for trunk support, posturecorrection, RW assist, and assist with RLE advancement. Pt demonstrates very forward flexed posturewhich increased with increased fatigue- frequent cueing provided to correct to aid in balance improvement. Increased difficulty also noted with navigating turns and backing to surfaces prior to sitting. Close chair follow required for safety. Limited tolerance d/t fatigue and pain. Balance Sitting Balance: Static: Fair Sitting Balance: Dynamic: Fair (-) Standing Balance: Static: Fair (-) Standing Balance: Dynamic: Poor Other: Pt displays heavy posterior trunk lean in standing requiring MOD A to correct and assist with weight shifting and RW positioning. R lateral trunk lean also present when sitting in recliner andwhen sitting unsupported. Several minor LOBs present with MIN-MOD A to correct. Activity Tolerance Endurance: Tolerates 30 minutes activity with rest breaks Other: Pt required rest breaks during mobility tasks for recovery d/t inc pain and fatigue. Is participative with all tasks. SpO2 monitored during tx as pt was on room air upon entry- low 90's noted upon session start on room air. Was desatting to mid 80s with increased activity, therefore donned 2L O2 for activity this session. Ended tx with 2L on and SpO2 in mid-high 90's. RN aware. Plan Physical Therapy Care Plan Physical Therapy Care Plan (Active) Template: PT - Physical Therapy Problem: Activity Tolerance Dates: Start: 11/28/24 Disciplines: PT Goal: Tolerate > 30 minutes of activity WITHOUT rest breaks Dates: Start: 11/28/24 Expected End: 12/12/24 Description: Goal Description: Disciplines: PT Outcomes Date/Time User Outcome 11/29/241713 Nellie Ibarra PTA Progressing 11/29/24 1404 Nellie Ibarra PTA Progressing Goal Note filed on 11/29/241713 by Nellie Ibarra PTA Evaluation of progress towards goal: Problem: Bed Mobility Dates: Start: 11/28/24 Disciplines: PT Goal: Patient will perform bed mobility with Minimum Assist Dates: Start: 11/28/24 Expected End: 12/12/24 Description: Goal Description: Disciplines: PT Outcomes Date/Time User Outcome 11/29/241713 Nellie Ibarra PTA Progressing 11/29/24 1404 Nellie Ibarra PTA Progressing Goal Note filed on 11/29/241713 by Nellie Ibarra PTA Evaluation of progress towards goal: Problem: Gait Dates: Start: 11/28/24 Disciplines: PT Goal: Patient will perform gait with Contact Guard Dates: Start: 11/28/24 Expected End: 12/12/24 Description: With__rw__,__150__feet Goal Description: Disciplines: PT Outcomes Date/Time User Outcome 11/29/241713 Nellie Ibarra PTA Progressing 11/29/24 1404 Nellie Ibarra PTA Progressing Goal Note filed on 11/29/241713 by Nellie Ibarra PTA Evaluation of progress towards goal: Problem: Strength Dates: Start: 11/28/24 Disciplines: PT Goal: Improve strength Dates: Start: 11/28/24 Expected End: 12/12/24 Description: Of extremity/ location:Complete 20 reps BLE ex's To facilitate: Disciplines: PT Outcomes Date/Time User Outcome 11/29/241713 Nellie Ibarra PTA Progressing 11/29/24 140 Nellie Ibarra PTA Progressing Goal Note filed on 11/29/241713 by Nellie Ibarra PTA Evaluation of progress towards goal: Problem: Transfers Dates: Start: 11/28/24 Disciplines: PT Goal: Patient will perform transfers with Minimum Assist Dates: Start: 11/28/24 Expected End: 12/12/24 Description: Goal Description: Disciplines: PT Outcomes Date/Time User Outcome 11/29/241713 Nellie Ibarra PTA Progressing 11/29/24 1404 Nellie Ibarra PTA Progressing Goal Note filed on 11/29/241713 by Nellie Ibarra PTA Evaluation of progress towards goal: Physical Therapy Care Plan (Resolved) There are no resolved problems. Principal Problem: Closed fracture of right hip, initial encounter ([facility]) Cosigned by Connor Carreon PT at 11/30/2024 6:50 AM EDT Associated attestation - Connor Carreon PT - 11/30/2024 6:50 AM EDT I have reviewed and agree with this note and education documentation for this visit. * PT/OT/[facility] DIRECTOR - SARAH Lopez/Alexsander - 11/29/2024 11:12 AM EDT Occupational Therapy Treatment Discharge Recommendations for Safe Patient Transition OT Discharge Disposition Recommendation: Post acute - moderate OT Post Acute Moderate Rehab Needs: Recommend moderate intensity rehab, Tolerate 1-2 hrs of therapy3-5 days/wk, Subacute or chronic functional impairment Current Impairments Informing Therapy Recommendation: Ambulation status/safety, Fall risk, ADL status, Endurance level 6 Clicks: Daily Activity Putting on and taking off regular lower body clothing?: A lot Bathing (including washing, rinsing, drying)?: A lot Toileting, which includes using toilet, bedpan or urinal?: A lot Putting on and taking off regular upper body clothing?: A lot Taking care of personal grooming such as brushing teeth?: A little Eating meals?: None Scoring Daily Activity Raw Score: 15 CMS G Code Modifier: CK OT Treatment/Interventions: ADL retraining, Functional transfer training, UE strengthening/ROM, Endurance training, Patient/family training, Equipment eval/education, Balance, Bed mobility, Compensatory technique education, Functional activities OT Frequency: Twice a Day OT Duration: length of stay Assessment Patient Assessment Therapy Problem List: Decreased ADL status, Decreased balance, Decreased endurance, Decreased high-level ADLs, Decreased mobility, Decreased self-care trans, Decreased UE strength, Decreased LE strength Patient Response to Treatment: Slow progress, decreased activity tolerance Mood/Affect: Appropriate for circumstances Rehab Prognosis: Good, With continued OT status post acute discharge Visit RN Communication: Yes Medical Record Reviewed: Yes OT Type of Visit: Treatment Precautions Activity: Okay to see per RN Equipment: gait belt, RW, female ex-cath Weight Bearing Status: WBAT RLE Telemetry/Flat Optical Element Maker: No Oxygen Used: 2L Other: fall risk Pain Assessment Pain Assessment: 0-10 Pain Score: 6 Pain Location: Hip, Groin Pain Orientation: Right Pain Intervention(s): Repositioned, Ambulation/increased activity Response to Interventions: Quiet, No grimacing ADL / IADL Footwear Assistance: Total assist Footwear Deficit: Don/doff compression hose, R shoe, L shoe Other: Pt declined ADLs this date. Home Management - IADL Other: Pt declined ADLs this date. Hearing / Speech / Vision Hearing: Within Functional Limits Speech: Within Functional Limits Current Vision: Wears glasses all the time Cognition Orientation Level: Oriented X4 Bed Mobility Supine to Sit: Mod assist (x2) Other: HOB elevated, cues for sequencing and tech with poor carryover. Pt required mod A x2 to progress trunk/BLEs. Able to scoot hips to EOB with inc time/effort. Transfers Sit to Stand: Mod assist (x2) Stand to Sit: Mod assist (x2) Bed to Chair: Mod assist (x2) Other: Pt completed STS x2 with cues for proper hand/foot placement and rocking technique for momentum. Pt required mod A x2 to initiate and achieve full stand. Heavy posterior lean noted upon standing with poor ability to correct with cues for posture. Gait Gait Assistance: Mod assist (x2) Assistive Device: Rolling walker Gait Distance: 4' x2 Limiting Factors to Gait: Fatigue, Weakness, Pain Other: Pt completed functional mobility in room with BUE support on RW. Rest breaks taken between distances. Ambulation EOB>chair pt required inc cueing for step sequence, RW proximity, posture, and physical A to turn walker. On second ambulation attempt, pt required physical A to advance RLE; chair follow required for safety. Balance Sitting Balance: Static: Fair Sitting Balance: Dynamic: Fair (-) Standing Balance: Static: Fair (-) Standing Balance: Dynamic: Poor Other: BUE support on RW throughout. Pt demo'd heavy posterior lean with cues provided for upright posture and anterior weight shifting with poor carryover. Pt required min-mod A to correct. Activity Tolerance Endurance: Tolerates 30 minutes activity with rest breaks Other: Frequent rest breaks taken 2/2 weakness, pain, and difficulty with command follow through. Pt educated on discontinuing use of external catheter and calling nursing staff to get to bathroom. Pt verbalized understanding. SpO2 remained WNL throughout. 11/29/24 0849 UE ROM UE ROM exercises performed? No (Focus on functional mobility.) Plan Occupational Therapy Care Plan Occupational Therapy Care Plan (Active) Template: OT - Occupational Therapy Problem: Activity Tolerance Dates: Start: 11/28/24 Disciplines: OT Goal: Tolerate > 30 minutes of activity WITH rest breaks Dates: Start: 11/28/24 Expected End: 12/26/24 Description: Goal Description: Disciplines: OT Outcomes Date/Time User Outcome 11/29/24 1042 TIFFANY Lopez Progressing Problem: Bathing LB Dates: Start: 11/28/24 Disciplines: OT Goal: Patient will perform bathing LB with Stand By Assist Dates: Start: 11/28/24 Expected End: 12/26/24 Description: Goal Description: Disciplines: OT Problem: Bathing UB Dates: Start: 11/28/24 Disciplines: OT Goal: Patient will perform bathing UB with Stand By Assist Dates: Start: 11/28/24 Expected End: 12/26/24 Description: Goal Description: Disciplines: OT Problem: Bed Mobility Dates: Start: 11/28/24 Disciplines: OT Goal: Patient will perform bed mobility with Modified Becker Dates: Start: 11/28/24 Expected End: 12/26/24 Description: Goal Description: Disciplines: OT Outcomes Date/Time User Outcome 11/29/24 Saskia SARAH Lopez/Alexsander Progressing Problem: Dressing LB Dates: Start: 11/28/24 Disciplines: OT Goal: Patient will perform dressing LB with Modified Becker Dates: Start: 11/28/24 Expected End: 12/26/24 Description: Goal Description: Disciplines: OT Problem: Dressing UB Dates: Start: 11/28/24 Disciplines: OT Goal: Patient will perform dressing UB Independently Dates: Start: 11/28/24 Expected End: 12/26/24 Description: Goal Description: Disciplines: OT Problem: Functional Mobility Dates: Start: 11/28/24 Disciplines: OT Goal: Patient will perform functional mobility Independently Dates: Start: 11/28/24 Expected End: 12/26/24 Description: Goal Description: Disciplines: OT Outcomes Date/Time User Outcome 11/29/24 EzequielTIFFANY Ott Progressing Problem: Grooming Dates: Start: 11/28/24 Disciplines: OT Goal: Patient will perform grooming Independently Dates: Start: 11/28/24 Expected End: 12/26/24 Description: Goal Description: Disciplines: OT Problem: ROM Dates: Start: 11/28/24 Problem: Sitting Balance Dates: Start: 11/28/24 Disciplines: OT Goal: Improve balance to good Dates: Start: 11/28/24 Expected End: 12/26/24 Description: Static Dynamic Disciplines: OT Outcomes Date/Time User Outcome 11/29/24 TIFFANY Medina Progressing Problem: Standing Balance Dates: Start: 11/28/24 Disciplines: OT Goal: Improve balance to good Dates: Start: 11/28/24 Expected End: 12/26/24 Description: Static Dynamic Disciplines: OT Outcomes Date/Time User Outcome 11/29/24 1042 TIFFANY Lopez Progressing Problem: Strength Dates: Start: 11/28/24 Disciplines: OT Goal: Improve strength Dates: Start: 11/28/24 Expected End: 12/26/24 Description: Of extremity/ location:Patient will demo B UE HEP independently To facilitate: To improve ind with ADLs and functional transfers/mobility. Disciplines: OT Problem: Toilet Transfers Dates: Start: 11/28/24 Disciplines: OT Goal: Patient will perform toilet transfers with Modified Becker Dates: Start: 11/28/24 Expected End: 12/26/24 Description: Goal Description: Disciplines: OT Problem: Toileting Dates: Start: 11/28/24 Disciplines: OT Goal: Patient will perform toileting with Modified Becker Dates: Start: 11/28/24 Expected End: 12/26/24 Description: Goal Description: Disciplines: OT Problem: Transfers Dates: Start: 11/28/24 Disciplines: OT Goal: Patient will perform transfers with Modified Becker Dates: Start: 11/28/24 Expected End: 12/26/24 Description: Goal Description: Disciplines: OT Outcomes Date/Time User Outcome 11/29/24 1042 TIFFANY Lopez Progressing Occupational Therapy Care Plan (Resolved) There are no resolved problems. Principal Problem: Closed fracture of right hip, initial encounter ([facility]) Cosigned by Sharon Napier OT/L at 11/29/2024 11:47 AM EDT Associated attestation - Sharon Napier OT/L - 11/29/2024 11:47 AM EDT I have reviewed and agree with this note and education documentation for this visit. * PT/OT/[employer] DIRECTOR - Nellie Ibarra PTA - 11/29/2024 8:48 AM EDT Physical Therapy Treatment Discharge Recommendations for Safe Patient Transition PT Discharge Disposition Recommendation: Post acute - moderate PT Post Acute Moderate Rehab Needs: Recommend moderate intensity rehab, Tolerate 1-2 hrs of therapy3-5 days/wk, Subacute or chronic functional impairment Current Impairments Informing Therapy Recommendation: Ambulation status/safety, Cognition, Fall risk, ADL status, Endurance level 6 Clicks: Basic Mobility Turning from your back to your side while in a flat bed without using bed rails?: A little Moving from lying on your back to sitting on side of flat bed without using bed rails?: A lot Moving to and from bed to a chair (including w/c)?: A lot Standing up from a chair using your arms (e.g. w/c or bedside chair)?: A lot To walk in hospital room?: A lot Climbing 3-5 steps with a railing?: Total Scoring 6 Clicks: Basic Mobility Raw Score: 12 CMS G Code Modifier: CL Therapy Plan PT Treatment/Interventions: Functional transfer training, LE strengthening/ROM, Endurance training,Patient/family training, Equipment eval/education, Balance, Bed mobility, Gait training, Functionalactivities PT Frequency: Twice a Day PT Duration: LOS Assessment Patient Assessment Therapy Problem List: Decreased ADL status, Decreased balance, Decreased endurance, Decreased high-level ADLs, Decreased mobility, Decreased self-care trans, Decreased UE strength, Decreased LE strength Patient Response to Treatment: Progressing toward goals Mood/Affect: Appropriate for circumstances Rehab Prognosis: Good, With continued PT status post acute discharge Visit RN Communication: Yes Medical Record Reviewed: Yes PT Type of Visit: Treatment Precautions Activity: ok to tx per RN Equipment: gait belt, RW, external female catheter Weight Bearing Status: WBAT R LE Telemetry/Flat Optical Element Maker: No Oxygen Used: 2L Other: Fall risk Pain Assessment Pain Assessment: 0-10 Pain Score: 6 Pain Location: Hip, Groin Pain Orientation: Right Pain Intervention(s): Repositioned, Ambulation/increased activity Response to Interventions: Quiet, No grimacing Hearing / Speech / Vision Hearing: Within Functional Limits Speech: Within Functional Limits Current Vision: Wears glasses all the time Cognition Overall Cognitive Status: Within Functional Limits, Exceptions to Within Functional Limits Attention Span: Attends with cues to redirect Orientation Level: Oriented X4 Following Commands: Follows one step commands with increased time, Follows one step commands with repetition Safety Judgment: Decreased awareness of need for assistance, Decreased awareness of need for safety Awareness of Errors: Assistance required to identify errors made, Assistance required to correct errors made Bed Mobility Supine to Sit: Mod assist (x2) Other: Pt supine upon arrival to session. Assisted to EOB with MOD A x2 for trunk and BLE support and safety- HOB elevated and use of bed railing encouraged. Increased time and effort to complete. Ptreporting minor dizziness with positional change. Resolved with increased time. Pt sitting in recliner at end of tx session with BLEs elevated, all needs met, ice applied to L hip, and call light in reach. Transfers Sit to Stand: Mod assist (x2) Stand to Sit: Mod assist (x2) Other: Pt completed several transfers this session with MOD A x2 for trunk support and safety. Education provided on sequencing of transitions, LE positioning, use of momentum, and safe hand placement to reduce fall risk. Fair carryover noted. Heavy posterior trunk lean present upon standing, requiring MOD A to correct and assist with shifting weight forward and positioning RW further in front ofBOS. Poor carryover noted with further transfer attempts. Minor dizziness noted with positional change that resolved with inc time. Pt also demonstrating heavy forward head posture- provided with frequent cueing to correct. Gait Base of Support: Narrow Pattern: Decreased garth, Antalgic gait, R Decreased heel strike, L Decreased heel strike, R Decreased foot clearance, L Decreased foot clearance, Forward trunk, R Decreased stance time, R Flexed knee Gait Assistance: Mod assist (x2) Assistive Device: Rolling walker Gait Distance: 4'x2 Limiting Factors to Gait: Fatigue, Weakness, Pain Other: Pt completed 2x ambulation attempts with MOD A x2 for safety and use of RW for BUE support. Education provided on step sequencing, widening JUAN, standing erect, inc step length, and safe RW navigation to improve technique. Intermittent assist provided for advancing RLE forward as well as forRW positioning. Limited tolerance noted at this time. Balance Sitting Balance: Static: Fair Sitting Balance: Dynamic: Fair (-) Standing Balance: Static: Fair (-) Standing Balance: Dynamic: Poor Other: Pt required BUE support on RW handles in standing with MOD A x2 for safety. Heavy posterior lean present with MOD A to correct by weight shifting forward and positioning RW further in front ofBOS. Pt sat unsupported at EOb and in recliner with posterior lean. Frequent cueing provided for posture correction and use of UE support to correct balance. Activity Tolerance Endurance: Tolerates 30 minutes activity with rest breaks Other: Intermittent rest breaks required during tx session secondary to fatigue, weakness, and decreased endurance. Pt is participative with encouragement. Pt fatigued quickly with activity and required extended rest periods between tasks. Encouraged pt to call out to nursing staff when needing to use the restroom to minimize the use of the external catheter and inc times up throughout the day. SPo2 monitored and WFL during session. Plan Physical Therapy Care Plan Physical Therapy Care Plan (Active) Template: PT - Physical Therapy Problem: Activity Tolerance Dates: Start: 11/28/24 Disciplines: PT Goal: Tolerate > 30 minutes of activity WITHOUT rest breaks Dates: Start: 11/28/24 Expected End: 12/12/24 Description: Goal Description: Disciplines: PT Outcomes Date/Time User Outcome 11/29/241403 Nellie Ibarra PTA Progressing Goal Note filed on 11/29/24 140 by Nellie Ibarra PTA Evaluation of progress towards goal: Problem: Bed Mobility Dates: Start: 11/28/24 Disciplines: PT Goal: Patient will perform bed mobility with Minimum Assist Dates: Start: 11/28/24 Expected End: 12/12/24 Description: Goal Description: Disciplines: PT Outcomes Date/Time User Outcome 11/29/241403 Nellie Ibarra PTA Progressing Goal Note filed on 11/29/241403 by Nellie Ibarra PTA Evaluation of progress towards goal: Problem: Gait Dates: Start: 11/28/24 Disciplines: PT Goal: Patient will perform gait with Contact Guard Dates: Start: 11/28/24 Expected End: 12/12/24 Description: With__rw__,__150__feet Goal Description: Disciplines: PT Outcomes Date/Time User Outcome 11/29/241403 Nellie Ibarra PTA Progressing Goal Note filed on 11/29/24 140 by Nellie Ibarra PTA Evaluation of progress towards goal: Problem: Strength Dates: Start: 11/28/24 Disciplines: PT Goal: Improve strength Dates: Start: 11/28/24 Expected End: 12/12/24 Description: Of extremity/ location:Complete 20 reps BLE ex's To facilitate: Disciplines: PT Outcomes Date/Time User Outcome 11/29/241403 Nellie Ibarra PTA Progressing Goal Note filed on 11/29/24 1404 by Nellie Ibarra PTA Evaluation of progress towards goal: Problem: Transfers Dates: Start: 11/28/24 Disciplines: PT Goal: Patient will perform transfers with Minimum Assist Dates: Start: 11/28/24 Expected End: 12/12/24 Description: Goal Description: Disciplines: PT Outcomes Date/Time User Outcome 11/29/24 1404 Nellie Ibarra PTA Progressing Goal Note filed on 11/29/24 1404 by Nellie Ibarra PTA Evaluation of progress towards goal: Physical Therapy Care Plan (Resolved) There are no resolved problems. Principal Problem: Closed fracture of right hip, initial encounter ([facility]) Cosigned by Johana Flores PT at 11/29/2024 2:32 PM EDT Associated attestation - Johana Flores, PT - 11/29/2024 2:32 PM EDT I have reviewed and agree with this note and education documentation for this visit. * Plan of Care - Terra Etienne RN - 11/29/2024 8:05 AM EDT Problem: Pain Goal: Patient goal is pain score less than 4, able to rest, and participant in treatment plan as appropriate Description: INTERVENTIONS: 1. Encourage patient or legal warehouse representative to report early pain and ask for pain medicine when needed 2. Assess pain using appropriate pain scale and include the scale used when documenting 3. Administer analgesics based on type and severity of pain and evaluate response within appropriate time frame 4. Implement non-pharmacological measures as appropriate and evaluate response 5. Consider cultural and social influences on pain and pain management 6. Notify LIP if interventions ineffective or patient reports new pain 7. Monitor vital signs including pulse ox, end-tidal CO2 based on pain intervention 8. Reassess pain per policy 9. Teach patient or legal warehouse representative interventions for comforting Outcome: Progressing Note: Evaluation of progress towards goal: Pt states current pain regimen relieves pain. Prn meds available. Pt encouraged to express needs for pain medication on a scale of 1-10. Vitals signs being monitored per policy. Problem: Safety Goal: Patient will be injury free during hospitalization Description: INTERVENTIONS: 1. Assess patient's risk for falls and implement fall prevention plan of care per policy 2. Provide and maintain a safe environment 3. Proper use of double Identifiers 4. Medication administration using the 5 rights 5. Hand hygiene 6. Specimens are labeled at the bedside 7. Instruct patient/ patient warehouse representative about use of safety devices 8. Include patient/ patient warehouse representative in decisions related to safety Outcome: Progressing Note: Evaluation of progress towards goal: RN implementing the above precautions to maintain pt safety. Pt remains free from falls and injuries since beginning of shift. Call light within reach. Bed rails up x2. Orientation reviewed. Hourly rounded maintained. Proper use of double identifiers used.Standard precautions maintained. * Plan of Care - Maria Luisa Ko RN - 11/29/2024 12:42 AM EDT Problem: Potential for Compromised Skin Integrity Goal: Skin integrity is maintained or improved Description: Patient's goal is: INTERVENTIONS 1. Perform initial skin assessment on admission and as needed 2. Turn patient every 2 hours and PRN 3. Relieve pressure to bony prominences 4. Avoid shearing 5. Keep skin clean and dry 6. Alternate a full bath with partial baths for elderly 7. Apply lotion/moisturizer on skin 8. Monitor patient's hygiene practices 9. Float heels 10. Collaborate with interdisciplinary team and initiate plans and interventions as needed Outcome: Progressing Note: Evaluation of progress towards goal: perform shift skin assessment, assist with turning when needed, keep skin clean and dry Problem: Pain Goal: Patient goal is pain score less than 4, able to rest, and participant in treatment plan as appropriate Description: INTERVENTIONS: 1. Encourage patient or legal warehouse representative to report early pain and ask for pain medicine when needed 2. Assess pain using appropriate pain scale and include the scale used when documenting 3. Administer analgesics based on type and severity of pain and evaluate response within appropriate time frame 4. Implement non-pharmacological measures as appropriate and evaluate response 5. Consider cultural and social influences on pain and pain management 6. Notify LIP if interventions ineffective or patient reports new pain 7. Monitor vital signs including pulse ox, end-tidal CO2 based on pain intervention 8. Reassess pain per policy 9. Teach patient or legal warehouse representative interventions for comforting Outcome: Progressing Note: Evaluation of progress towards goal: Pain assessment per protocol, prn pain medication available, non pharmacological interventions offered Problem: Safety Goal: Patient will be injury free during hospitalization Description: INTERVENTIONS: 1. Assess patient's risk for falls and implement fall prevention plan of care per policy 2. Provide and maintain a safe environment 3. Proper use of double Identifiers 4. Medication administration using the 5 rights 5. Hand hygiene 6. Specimens are labeled at the bedside 7. Instruct patient/ patient warehouse representative about use of safety devices 8. Include patient/ patient warehouse representative in decisions related to safety Outcome: Progressing Note: Evaluation of progress towards goal: call light within reach, bed in lowest position, patientwearing nonslip footwear Problem: Infection Goal: Absence of infection during hospitalization Description: INTERVENTIONS 1. Assess and monitor for signs and symptoms of infection. 2. Monitor lab/diagnostic results. 3. Monitor all insertion sites i.e., indwelling lines, tubes and drains. 4. Monitor endotracheal (as able) and nasal secretions for changes in amount and color. 5. Administer medications as ordered. 6. Instruct and encourage patient and family to use good hand hygiene technique. 7. Identify and instruct patient/patient warehouse representative in use of appropriate isolation precautionsfor identified infection/symptoms. 8. Provide and discuss with patient/patient warehouse representative on educational MDRO sheet. 9. Encourage and monitor nutritional status daily and consult cyber forensics analyst if indicated. 10. Implement neutropenic guidelines as needed. Outcome: Progressing Note: Evaluation of progress towards goal: monitor for signs and symptoms of infection Problem: Knowledge Deficit Goal: Patient/patient warehouse representative demonstrates understanding of disease process, treatment plan,medications, and discharge instructions Description: INTERVENTIONS 1. Complete learning assessment and assess knowledge base 2. Provide teaching at level of understanding 3. Provide teaching via preferred learning method(s) Outcome: Progressing Note: Evaluation of progress towards goal: continue to provide and reinforce education on patient condition, answer patient questions, encourage patient to ask questions Problem: Discharge Planning Goal: Discharge to post-acute care, other facility, or home with appropriate resources Description: Patient's goal is: INTERVENTIONS 1. Conduct assessment to determine patient/family and health care team treatment goals, and need for post-acute services based on payer coverage, community resources, and patient preferences, and barriers to discharge 2. Coordinate with Social work, Care Navigation, and Utilization Review to arrange appropriate level of services according to patient's needs based on patient preference and payer coverage in collaboration with the physician and health care team 3. Address psychosocial, clinical, and financial barriers to discharge as identified in assessment in conjunction with the patient/family and health care team 4. Consult appropriate ancillary services (i.e.. PT/OT/ST, etc) as needed 5. Communicate with and update the patient/family, physician, and health care team regarding progress on the discharge plan 6. Identify discharge learning needs (meds, wound care, etc). 7. Arrange for needed discharge transportation as appropriate Outcome: Progressing Note: Evaluation of progress towards goal: discharge planning continued Problem: Moderate - High Risk Fall Score Description: Millan Fall Score of =/> 25 or indicated by [facility] Assessment Goal: Patient should be free from fall Description: Interventions: 1. [place] to environment 2. Hourly rounds addressing the 4 P's (Pain, Positioning, Possessions, Potty) 3. Clear area of hazards (spills, clutter, electrical cords, unnecessary equipment) 4. Place equipment (bed & TV controls, call light, phone, urinal) within reach 5. Encourage patient to wear glasses and hearing aides as appropriate 6. Maintain bed in lowest position 7. Lock wheels on bed/wheelchair 8. Provide adequate lighting, including night light 9. Assess need for additional bedding, food/fluids, pain med's prior to sleep/routinely 10. Provide gripper slippers or personal non-skid footwear 11. Teach patient and patient warehouse representative to maintain environment for safety and engage in all aspects of fall prevention program 12. Remind patient to call for help before getting out of bed 13. Initiate bed/chair/exit alarms supportive devices as appropriate, (chair wedge, no-skid floor mat, raised edge mattress, hip protectors) 14. Locate patient bed assignment for optimal visualization 15. Evaluate and identify Safe Patient Handling Equipment needs 16. Provide supervision when out of bed or chair 17. Utilize gait belt as needed to assist with ambulation 18. Place adaptive equipment (cane, walker) within reach 19. Request patient warehouse representative bring adaptive equipment/mobility aids from home or obtain and provide as needed 20. Consult pharmacy regarding effects of med's affecting mobility, cognition, and alternatives 21. Obtain physician order for PT if risk factors associated with mobility are present 22. Obtain physician order for OT as appropriate 23. Utilize diversional activities 24. Educate patient and patient warehouse representative how to maintain a safe environment during visitationtimes (notify nurse prior to leaving bedside) 25. Consider appropriateness of medical or non-program medical director 26. Set up voiding schedule as appropriate (every 2 hours) Outcome: Progressing Note: Evaluation of progress towards goal: hourly rounding, provide assistive device, assist with ambulation Problem: Activity Intolerance/Impaired Mobility Goal: Mobility/activity is maintained at optimum level for patient Description: Patient's goal is: INTERVENTIONS 1. Assess and monitor patient barriers to mobility and need for assistive/adaptive devices 2. Assess patient's emotional response to limitations 3. Collaborate with interdisciplinary teams and initiate plans and interventions as ordered 4. Encourage independent activity per tolerance 5. Maintain proper body alignment 6. Perform active/passive ROM as tolerated/ordered 7. Coordinate activities to conserve energy 8. Reposition patient 9. Ensure adequate rest/sleep time Outcome: Progressing Note: Evaluation of progress towards goal: encourage early and ongoing activity * Discharge Planning Note - Celi Verdin - 11/28/2024 3:42 PM EDT DISCHARGE PLANNING NOTE Prior Auth approved for admission to : [facility] (P# ; F# ) Approval # [id number] Valid for Dates: 11/28/2024 - 12/04/2024 * Discharge Planning Note - Celi Verdin - 11/28/2024 3:29 PM EDT DISCHARGE PLANNING NOTE Prior auth submitted to: [employer] Via: Johanne On behalf of : [facility] (P# ; F# ) We will provide reference number when available. * PT/OT/CHILDREN'S MINISTRIES DIRECTOR - Lisa Gonzalez, PT - 11/28/2024 2:47 PM EDT Physical Therapy Evaluation Discharge Recommendations for Safe Patient Transition PT Discharge Disposition Recommendation: Post acute - moderate PT Post Acute Moderate Rehab Needs: Recommend moderate intensity rehab, Tolerate 1-2 hrs of therapy3-5 days/wk, Subacute or chronic functional impairment Current Impairments Informing Therapy Recommendation: Ambulation status/safety, Fall risk, Endurance level, ADL status (decreased balance and strength.) Therapy Plan Need for skilled Physical Therapy to address deficits in functional mobility due to a status decline resulting from hospitalization. Pt resides in assisted living at [facility]. She was using her walker and fell. She presented to [place] ED with Rt hip pain. Imaging showed Rt subcapital femoral neck fx. Pt was then transferred to [facility] for higher level of care. On 11/27/24 she underwent Rt hip hemiarthroplasty. She is WBAT RLE. Chief Complaint Patient presents with Fall Past Medical History: Diagnosis Date CHF (congestive heart failure) ([facility]) Chronic kidney disease Coronary artery disease Dental disease Diabetes mellitus type 2, controlled ([facility]) Dizziness GERD (gastroesophageal reflux disease) Hyperlipidemia Hypertension Myocardial infarction ([facility]) Prolonged emergence from general anesthesia Past Surgical History: Procedure Laterality Date CHOLECYSTECTOMY CORONARY STENT PLACEMENT ESOPHAGOSCOPY HEMIARTHROPLASTY HIP Right 11/27/2024 Performed by Kirby Andersen MD at [facility] LAPAROSCOPIC HYSTERECTOMY OOPHORECTOMY OVARIAN CYST SURGERY 6 Clicks: Basic Mobility Turning from your back to your side while in a flat bed without using bed rails?: A little Moving from lying on your back to sitting on side of flat bed without using bed rails?: A lot Moving to and from bed to a chair (including w/c)?: A lot Standing up from a chair using your arms (e.g. w/c or bedside chair)?: A lot To walk in hospital room?: Total Climbing 3-5 steps with a railing?: Total Scoring 6 Clicks: Basic Mobility Raw Score: 11 [facility] G Code Modifier: CL PT Treatment/Interventions: Functional transfer training, LE strengthening/ROM, Endurance training,Patient/family training, Equipment eval/education, Balance, Bed mobility, Gait training, Functionalactivities PT Frequency: Twice a Day PT Duration: LOS Assessment Patient Assessment Therapy Problem List: Decreased balance, Decreased endurance, Decreased mobility, Decreased safe judgement during ADL, Decreased LE strength Patient Response to Treatment: Tolerated evaluation without adverse reaction Mood/Affect: Appropriate for circumstances Rehab Prognosis: Good, With continued PT status post acute discharge Visit RN Communication: Yes Medical Record Reviewed: Yes PT Type of Visit: Evaluation Reason For Medical Deferral: Off unit (2nd attempt to see pt she is still in echo. Will try back asable.) Precautions Activity: early mobility-pass, ok per RN Equipment: gait belt, rw Weight Bearing Status: WBAT RLE Telemetry/Flat Optical Element Maker: No Oxygen Used: 3L NC Other: fall risk Pain Assessment Pain Assessment: 0-10 Pain Score: 5 Observed Behavior: Calm Pain Location: Hip Pain Orientation: Right Pain Intervention(s): Repositioned, Cold applied (Ex's) Response to Interventions: Pain unchanged Pain 2 Observed Behavior: Calm Home Living Type of Home: Assisted living ([facility]) Home Layout: One level Stairs to Enter: 0 Bathroom Shower/Tub: Walk-in shower Bathroom Toilet: Raised Bathroom Equipment: Shower chair, Hand-held shower, Grab bars in shower, Grab bars around toilet, Commode (uses commode at night.) Home Equipment: 4 Wheeled walker Prior Function Lives With: Alone Receives Help From: (staff at facility helps with bathing, medication, dtr is also supportive.) Level of Mobility: (Pt independent with her basic mobility using rw.) Homemaking Assistance: (Pt states she gets some assist from staff or family at times intermittentlyas need.) Other: Pt gets her own breaksfast but goes to dining room for lunch and dinner. Hearing / Speech / Vision Hearing: Within Functional Limits Speech: Within Functional Limits Current Vision: Wears glasses all the time Cognition Orientation Level: Oriented X4 Sensation Overall Sensation Status: (intermittent n+t Rt foot since injury.) Bed Mobility Supine to Sit: Mod assist (x2 with HOB up and assist needed at the trunk and with her LE's.) Sit to Supine: (NT this session as pt remained up in recliner with call light at hand.) Transfers Sit to Stand: Mod assist, Verbal cues (x2 Pt had strong posterior lean) Stand to Sit: Mod assist (x2 to control descent.) Bed to Chair: Mod assist (x2) Other: Pt provided cues for safe hand placement and technique. Gait Gait Assistance: Mod assist (x2) Assistive Device: Rolling walker Gait Distance: Pt went 3' bed to chair with support ot assist pt in keeping her center of gravity midline/over her feet. She had strong posterior lean at times. Pt benefited from cues to look up which not only helped her posture but decreased her posterior lean. Pt was able to clear her feet in order to take a few steps but fatigued very quickly. Balance Sitting Balance: Static: Fair Sitting Balance: Dynamic: Fair (-) Standing Balance: Static: Fair (+) Standing Balance: Dynamic: Poor Other: Standing balance graded with the support of the rw. RLE Assessment: (Grossly 4- to 4/5.) LLE Assessment: (Pt not able to overcome gravity at the hip or knee due to pain and weakness. Active DF/PF.) Activity Tolerance Endurance: Tolerates 30 minutes activity with rest breaks Plan Physical Therapy Care Plan Physical Therapy Care Plan (Active) Template: PT - Physical Therapy Problem: Activity Tolerance Dates: Start: 11/28/24 Disciplines: PT Goal: Tolerate > 30 minutes of activity WITHOUT rest breaks Dates: Start: 11/28/24 Expected End: 12/12/24 Description: Goal Description: Disciplines: PT Problem: Bed Mobility Dates: Start: 11/28/24 Disciplines: PT Goal: Patient will perform bed mobility with Minimum Assist Dates: Start: 11/28/24 Expected End: 12/12/24 Description: Goal Description: Disciplines: PT Problem: Gait Dates: Start: 11/28/24 Disciplines: PT Goal: Patient will perform gait with Contact Guard Dates: Start: 11/28/24 Expected End: 12/12/24 Description: With__rw__,__150__feet Goal Description: Disciplines: PT Problem: Strength Dates: Start: 11/28/24 Disciplines: PT Goal: Improve strength Dates: Start: 11/28/24 Expected End: 12/12/24 Description: Of extremity/ location:Complete 20 reps BLE ex's To facilitate: Disciplines: PT Problem: Transfers Dates: Start: 11/28/24 Disciplines: PT Goal: Patient will perform transfers with Minimum Assist Dates: Start: 11/28/24 Expected End: 12/12/24 Description: Goal Description: Disciplines: PT Physical Therapy Care Plan (Resolved) There are no resolved problems. Principal Problem: Closed fracture of right hip, initial encounter ([facility]) * Discharge Planning Note - LOVELY Ulloa - 11/28/2024 2:21 PM EDT DC plan SN[facility]: [facility]. Tasked to [facility] to start pre-cert. BLS tx cert in dc packet. Will need HENS, CRF. Barriers: needs echo, renal ultrasound, potasium elevated - LOVELY Ulloa 11/28/24 2:26 PM Ongoing Assessment for Discharge Needs Reviewed discharge milestones and patient needs related to discharge plan. Current estimated discharge date of Nov 30, 2024 has been reviewed by treatment team. Ongoing Assessment for Discharge Needs Flowsheet Row Most Recent Value Services Requested Patient expects to be discharged to: SNF Does the patient wish to have family/friend/caregiver involved in their discharge planning? Yes Does the patient plan to return home to a community setting? No, patient to discharge to facility-based provider. See Discharge Disposition Discharge Disposition SNF [facility] SNF Accepted? Yes Does the patient need discharge transportation arranged? Yes Transportation Arranged Ambulance Patient choice offered Yes List Provided Yes [facility] List Provided [facility] Facility Respiratory Indicator Does the patient currently have home respiratory equipment? No Will the patient need home respiratory equipment upon discharge? No, it is expected that patient will NOT discharge home with respiratory DME needs * PT/OT/CHILDREN'S MINISTRIES DIRECTOR - Halle Lea OT/Alexsander - 11/28/2024 2:21 PM EDT Occupational Therapy Evaluation Discharge Recommendations for Safe Patient Transition OT Discharge Disposition Recommendation: Post acute - moderate OT Post Acute Moderate Rehab Needs: Tolerate 1-2 hrs of therapy 3-5 days/wk, Subacute or chronic functional impairment Current Impairments Informing Therapy Recommendation: Ambulation status/safety, Fall risk, ADL status, Endurance level Therapy Plan Need for skilled Occupational Therapy to address deficits in ADL independence and functional mobility due to a status decline resulting from Rt subcapital femoral neck fx after a fall. Patient was using her walker and fell at her [facility] She presented to [place] ED with Rt hip pain. Imaging showed Rt subcapital femoral neck fx. Pt was then transferred to [facility] for higher level of care. On 11/27/24 she underwent Rt hip hemiarthroplasty. She is WBAT RLE. Patient lives in apartment in [place], uses 4ww at baseline, has own accessible bathroom with grab barsand shower chair to walk in shower, gets assist for meds and showers from staff, was ind with otherADLs, local dtr assists as needed for shopping/transportation. staff asssit with meds and shower and as needed for taking out trash if too heavy for patient to put on her rollator. Dtr, Mandy assists with shopping and transportation. During eval patient required Mod A x 2 for functional transfers/mobility. RW for support in standing, posterior lean, required VCS for posture, proper hand and foot placement. Patient would benefit from additional OT in order to improve safety and ind with ADLs, functional transfers and mobility and be able to safely return to [facility]. . Past Surgical History: Procedure Laterality Date CHOLECYSTECTOMY CORONARY STENT PLACEMENT ESOPHAGOSCOPY HEMIARTHROPLASTY HIP Right 11/27/2024 Performed by Kirby Andersen MD at [facility] LAPAROSCOPIC HYSTERECTOMY OOPHORECTOMY OVARIAN CYST SURGERY . Past Medical History: Diagnosis Date CHF (congestive heart failure) ([facility]) Chronic kidney disease Coronary artery disease Dental disease Diabetes mellitus type 2, controlled ([facility]) Dizziness GERD (gastroesophageal reflux disease) Hyperlipidemia Hypertension Myocardial infarction ([facility]) Prolonged emergence from general anesthesia 6 Clicks: Daily Activity Putting on and taking off regular lower body clothing?: A lot Bathing (including washing, rinsing, drying)?: A lot Toileting, which includes using toilet, bedpan or urinal?: A lot Putting on and taking off regular upper body clothing?: A lot Taking care of personal grooming such as brushing teeth?: A little Eating meals?: None Scoring Daily Activity Raw Score: 15 [facility] G Code Modifier: CK OT Treatment/Interventions: ADL retraining, Functional transfer training, UE strengthening/ROM, Endurance training, Patient/family training, Equipment eval/education, Balance, Bed mobility, Compensatory technique education, Functional activities OT Frequency: Twice a Day OT Duration: length of stay Assessment Patient Assessment Therapy Problem List: Decreased ADL status, Decreased balance, Decreased endurance, Decreased high-level ADLs, Decreased mobility, Decreased self-care trans, Decreased UE strength, Decreased LE strength Patient Response to Treatment: Tolerated evaluation without adverse reaction Mood/Affect: Appropriate for circumstances Rehab Prognosis: Good, With continued OT status post acute discharge Visit RN Communication: Yes Medical Record Reviewed: Yes OT Type of Visit: Evaluation Precautions Activity: early mobility-pass, ok per RN Equipment: gait belt, RW Weight Bearing Status: WBAT R LE Oxygen Used: 3L/min via NC Other: Fall risk Pain Assessment Pain Assessment: 0-10 Pain Score: 5 Observed Behavior: Calm Pain Location: Hip Pain Orientation: Right Pain Intervention(s): Repositioned, Ambulation/increased activity, Cold applied, Distraction Response to Interventions: Pain unchanged Pain 2 Observed Behavior: Calm Home Living Type of Home: Assisted living ([facility]) Home Layout: One level Stairs to Enter: 0 Bathroom Shower/Tub: Walk-in shower Bathroom Toilet: Raised (Has toilet riser) Bathroom Equipment: Shower chair, Hand-held shower, Grab bars in shower, Grab bars around toilet, Commode (Uses bedside commode next to bed at night) Home Equipment: 4 Wheeled walker, Wheelchair-manual Other : Patient lives in apartment in [facility], uses 4ww at baseline, has own accessible bathroom with grab bars and shower chair to walk in shower, gets assist for meds and showers, was ind with other ADLs, local dtr assists as needed for shopping/transportation. Prior Function Lives With: Other (Comment) ([facility], lives alone in her own apartment) Receives Help From: (staff assit with meds and shower and as needed for taking out trash if too heavy for patient to put on her rollator. Dtr, Mandy assists with shopping and transportation.) Level of Mobility: Needs assistance with ADLs or functional transfers or gait Homemaking Assistance: Needs assistance Other: Patient lives in apartment in [facility], uses 4ww at baseline, has own accessible bathroom with grab bars and shower chair to walk in shower, gets assist for meds and showers, was ind with other ADLs, local dtr assists as needed for shopping/transportation. ADL / IADL Hand Dominance: Right Where Assessed: Supine, bed, Edge of bed, Chair Eating Assistance: Setup Grooming Assistance: Min assist Bathing/Showering Assistance: Max assist Toilet/Commode Assistance: Max assist UE Dressing Assistance: Mod assist LE Dressing Assistance: Max assist Footwear Assistance: Max assist Other: Patient limited d/t pain, weakness, fatigue. Patient educated on safety with functional transfers, mobility and ADLs. ADL status based on clinical judgment and observation of patient. Home Management - IADL Other: Patient limited d/t pain, weakness, fatigue. Patient educated on safety with functional transfers, mobility and ADLs. ADL status based on clinical judgment and observation of patient. Hearing / Speech / Vision Hearing: Within Functional Limits Speech: Within Functional Limits Current Vision: Wears glasses all the time Cognition Overall Cognitive Status: Within Functional Limits Orientation Level: Oriented X4 Sensation Overall Sensation Status: Within Functional Limits Perception / Proprioception Overall Status: Within Functional Limits Bed Mobility Supine to Sit: Mod assist (x2, required assist for trunk support, lowering LEs to floor and scooting to EOB.) Sit to Supine: (Patient up in chair end of session with call light in place) Transfers Sit to Stand: Mod assist (x2, RW for support in standing, posterior lean, required VCS for posture,proper hand and foot placement.) Stand to Sit: Mod assist (x2, VC to reach back to chair arms to control lower) Bed to Chair: Mod assist (x2, RW for support in standing, posterior lean, required VCS for posture,proper hand and foot placement.) Other: Patient required Mod A x 2 for functional transfers/mobility. RW for support in standing, posterior lean, required VCS for posture, proper hand and foot placement. Gait Gait Assistance: Mod assist (Patient required Mod A x 2 for functional transfers/mobility. RW for support in standing, posterior lean, required VCS for posture, proper hand and foot placement.) Assistive Device: Rolling walker Gait Distance: Patient tolerated functional mobiilty a few feet from EOB to recliner chair Other: Patient required Mod A x 2 for functional transfers/mobility. RW for support in standing, posterior lean, required VCS for posture, proper hand and foot placement. Balance Sitting Balance: Static: Fair Sitting Balance: Dynamic: Fair (-) Standing Balance: Static: Fair (+) Standing Balance: Dynamic: Poor Other: RW for support in standing RUE Assessment: Within Functional Limits LUE Assessment: Within Functional Limits Activity Tolerance Endurance: Tolerates 30 minutes activity with rest breaks Plan Occupational Therapy Care Plan Occupational Therapy Care Plan (Active) Template: OT - Occupational Therapy Problem: Activity Tolerance Dates: Start: 11/28/24 Disciplines: OT Goal: Tolerate > 30 minutes of activity WITH rest breaks Dates: Start: 11/28/24 Expected End: 12/26/24 Description: Goal Description: Disciplines: OT Problem: Bathing LB Dates: Start: 11/28/24 Disciplines: OT Goal: Patient will perform bathing LB with Stand By Assist Dates: Start: 11/28/24 Expected End: 12/26/24 Description: Goal Description: Disciplines: OT Problem: Bathing UB Dates: Start: 11/28/24 Disciplines: OT Goal: Patient will perform bathing UB with Stand By Assist Dates: Start: 11/28/24 Expected End: 12/26/24 Description: Goal Description: Disciplines: OT Problem: Bed Mobility Dates: Start: 11/28/24 Disciplines: OT Goal: Patient will perform bed mobility with Modified Becker Dates: Start: 11/28/24 Expected End: 12/26/24 Description: Goal Description: Disciplines: OT Problem: Dressing LB Dates: Start: 11/28/24 Disciplines: OT Goal: Patient will perform dressing LB with Modified Becker Dates: Start: 11/28/24 Expected End: 12/26/24 Description: Goal Description: Disciplines: OT Problem: Dressing UB Dates: Start: 11/28/24 Disciplines: OT Goal: Patient will perform dressing UB Independently Dates: Start: 11/28/24 Expected End: 12/26/24 Description: Goal Description: Disciplines: OT Problem: Functional Mobility Dates: Start: 11/28/24 Disciplines: OT Goal: Patient will perform functional mobility Independently Dates: Start: 11/28/24 Expected End: 12/26/24 Description: Goal Description: Disciplines: OT Problem: Grooming Dates: Start: 11/28/24 Disciplines: OT Goal: Patient will perform grooming Independently Dates: Start: 11/28/24 Expected End: 12/26/24 Description: Goal Description: Disciplines: OT Problem: ROM Dates: Start: 11/28/24 Problem: Sitting Balance Dates: Start: 11/28/24 Disciplines: OT Goal: Improve balance to good Dates: Start: 11/28/24 Expected End: 12/26/24 Description: Static Dynamic Disciplines: OT Problem: Standing Balance Dates: Start: 11/28/24 Disciplines: OT Goal: Improve balance to good Dates: Start: 11/28/24 Expected End: 12/26/24 Description: Static Dynamic Disciplines: OT Problem: Strength Dates: Start: 11/28/24 Disciplines: OT Goal: Improve strength Dates: Start: 11/28/24 Expected End: 12/26/24 Description: Of extremity/ location:Patient will demo B UE HEP independently To facilitate: To improve ind with ADLs and functional transfers/mobility. Disciplines: OT Problem: Toilet Transfers Dates: Start: 11/28/24 Disciplines: OT Goal: Patient will perform toilet transfers with Modified Becker Dates: Start: 11/28/24 Expected End: 12/26/24 Description: Goal Description: Disciplines: OT Problem: Toileting Dates: Start: 11/28/24 Disciplines: OT Goal: Patient will perform toileting with Modified Becker Dates: Start: 11/28/24 Expected End: 12/26/24 Description: Goal Description: Disciplines: OT Problem: Transfers Dates: Start: 11/28/24 Disciplines: OT Goal: Patient will perform transfers with Modified Becker Dates: Start: 11/28/24 Expected End: 12/26/24 Description: Goal Description: Disciplines: OT Occupational Therapy Care Plan (Resolved) There are no resolved problems. Principal Problem: Closed fracture of right hip, initial encounter ([facility]) * PT/OT/CHILDREN'S MINISTRIES DIRECTOR - Lisa Gonzalez, PT - 11/28/2024 10:43 AM EDT Physical Therapy PT Type of Visit: Medical deferral Reason For Medical Deferral: Off unit (2nd attempt to see pt she is still in echo. Will try back asable.) * PT/OT/CHILDREN'S MINISTRIES DIRECTOR - Lisa Gonzalez, PT - 11/28/2024 10:42 AM EDT Physical Therapy PT Type of Visit: Medical deferral Reason For Medical Deferral: Off unit (2nd attempt to see pt she is still in echo. Will try back asable.) * PT/OT/CHILDREN'S MINISTRIES DIRECTOR - Kim Washington OTR/L - 11/28/2024 10:41 AM EDT Occupational Therapy OT Type of Visit: Medical deferral Reason For Medical Deferral: Off unit (OT attempted. Pt off floor. Will check back as able.) * Plan of Care - Terra Etienne RN - 11/28/2024 9:55 AM EDT Problem: Pain Goal: Patient goal is pain score less than 4, able to rest, and participant in treatment plan as appropriate Description: INTERVENTIONS: 1. Encourage patient or legal warehouse representative to report early pain and ask for pain medicine when needed 2. Assess pain using appropriate pain scale and include the scale used when documenting 3. Administer analgesics based on type and severity of pain and evaluate response within appropriate time frame 4. Implement non-pharmacological measures as appropriate and evaluate response 5. Consider cultural and social influences on pain and pain management 6. Notify LIP if interventions ineffective or patient reports new pain 7. Monitor vital signs including pulse ox, end-tidal CO2 based on pain intervention 8. Reassess pain per policy 9. Teach patient or legal warehouse representative interventions for comforting Outcome: Progressing Note: Evaluation of progress towards goal: Pt states current pain regimen relieves pain. Prn meds available. Pt encouraged to express needs for pain medication on a scale of 1-10. Vitals signs being monitored per policy. Problem: Safety Goal: Patient will be injury free during hospitalization Description: INTERVENTIONS: 1. Assess patient's risk for falls and implement fall prevention plan of care per policy 2. Provide and maintain a safe environment 3. Proper use of double Identifiers 4. Medication administration using the 5 rights 5. Hand hygiene 6. Specimens are labeled at the bedside 7. Instruct patient/ patient warehouse representative about use of safety devices 8. Include patient/ patient warehouse representative in decisions related to safety Outcome: Progressing Note: Evaluation of progress towards goal: RN implementing the above precautions to maintain pt safety. Pt remains free from falls and injuries since beginning of shift. Call light within reach. Bed rails up x2. Orientation reviewed. Hourly rounded maintained. Proper use of double identifiers used.Standard precautions maintained. * Plan of Care - Maria Luisa Ko RN - 11/27/2024 8:31 PM EDT Problem: Potential for Compromised Skin Integrity Goal: Skin integrity is maintained or improved Description: Patient's goal is: INTERVENTIONS 1. Perform initial skin assessment on admission and as needed 2. Turn patient every 2 hours and PRN 3. Relieve pressure to bony prominences 4. Avoid shearing 5. Keep skin clean and dry 6. Alternate a full bath with partial baths for elderly 7. Apply lotion/moisturizer on skin 8. Monitor patient's hygiene practices 9. Float heels 10. Collaborate with interdisciplinary team and initiate plans and interventions as needed Outcome: Progressing Note: Evaluation of progress towards goal: perform shift skin assessment, assist with turning when needed, keep skin clean and dry Problem: Pain Goal: Patient goal is pain score less than 4, able to rest, and participant in treatment plan as appropriate Description: INTERVENTIONS: 1. Encourage patient or legal warehouse representative to report early pain and ask for pain medicine when needed 2. Assess pain using appropriate pain scale and include the scale used when documenting 3. Administer analgesics based on type and severity of pain and evaluate response within appropriate time frame 4. Implement non-pharmacological measures as appropriate and evaluate response 5. Consider cultural and social influences on pain and pain management 6. Notify LIP if interventions ineffective or patient reports new pain 7. Monitor vital signs including pulse ox, end-tidal CO2 based on pain intervention 8. Reassess pain per policy 9. Teach patient or legal warehouse representative interventions for comforting Outcome: Progressing Note: Evaluation of progress towards goal: Pain assessment per protocol, prn pain medication available, non pharmacological interventions offered Problem: Safety Goal: Patient will be injury free during hospitalization Description: INTERVENTIONS: 1. Assess patient's risk for falls and implement fall prevention plan of care per policy 2. Provide and maintain a safe environment 3. Proper use of double Identifiers 4. Medication administration using the 5 rights 5. Hand hygiene 6. Specimens are labeled at the bedside 7. Instruct patient/ patient warehouse representative about use of safety devices 8. Include patient/ patient warehouse representative in decisions related to safety Outcome: Progressing Note: Evaluation of progress towards goal: call light within reach, bed in lowest position, patientwearing nonslip footwear Problem: Knowledge Deficit Goal: Patient/patient warehouse representative demonstrates understanding of disease process, treatment plan,medications, and discharge instructions Description: INTERVENTIONS 1. Complete learning assessment and assess knowledge base 2. Provide teaching at level of understanding 3. Provide teaching via preferred learning method(s) Outcome: Progressing Note: Evaluation of progress towards goal: continue to provide and reinforce education on patient condition, answer patient questions, encourage patient to ask questions Problem: Discharge Planning Goal: Discharge to post-acute care, other facility, or home with appropriate resources Description: Patient's goal is: INTERVENTIONS 1. Conduct assessment to determine patient/family and health care team treatment goals, and need for post-acute services based on payer coverage, community resources, and patient preferences, and barriers to discharge 2. Coordinate with Social work, Care Navigation, and Utilization Review to arrange appropriate level of services according to patient's needs based on patient preference and payer coverage in collaboration with the physician and health care team 3. Address psychosocial, clinical, and financial barriers to discharge as identified in assessment in conjunction with the patient/family and health care team 4. Consult appropriate ancillary services (i.e.. PT/OT/ST, etc) as needed 5. Communicate with and update the patient/family, physician, and health care team regarding progress on the discharge plan 6. Identify discharge learning needs (meds, wound care, etc). 7. Arrange for needed discharge transportation as appropriate Outcome: Progressing Note: Evaluation of progress towards goal: discharge planning continued Problem: Moderate - High Risk Fall Score Description: Millan Fall Score of =/> 25 or indicated by [facility] Assessment Goal: Patient should be free from fall Description: Interventions: 1. [place] to environment 2. Hourly rounds addressing the 4 P's (Pain, Positioning, Possessions, Potty) 3. Clear area of hazards (spills, clutter, electrical cords, unnecessary equipment) 4. Place equipment (bed & TV controls, call light, phone, urinal) within reach 5. Encourage patient to wear glasses and hearing aides as appropriate 6. Maintain bed in lowest position 7. Lock wheels on bed/wheelchair 8. Provide adequate lighting, including night light 9. Assess need for additional bedding, food/fluids, pain med's prior to sleep/routinely 10. Provide gripper slippers or personal non-skid footwear 11. Teach patient and patient warehouse representative to maintain environment for safety and engage in all aspects of fall prevention program 12. Remind patient to call for help before getting out of bed 13. Initiate bed/chair/exit alarms supportive devices as appropriate, (chair wedge, no-skid floor mat, raised edge mattress, hip protectors) 14. Locate patient bed assignment for optimal visualization 15. Evaluate and identify Safe Patient Handling Equipment needs 16. Provide supervision when out of bed or chair 17. Utilize gait belt as needed to assist with ambulation 18. Place adaptive equipment (cane, walker) within reach 19. Request patient warehouse representative bring adaptive equipment/mobility aids from home or obtain and provide as needed 20. Consult pharmacy regarding effects of med's affecting mobility, cognition, and alternatives 21. Obtain physician order for PT if risk factors associated with mobility are present 22. Obtain physician order for OT as appropriate 23. Utilize diversional activities 24. Educate patient and patient warehouse representative how to maintain a safe environment during visitationtimes (notify nurse prior to leaving bedside) 25. Consider appropriateness of medical or non-program medical director 26. Set up voiding schedule as appropriate (every 2 hours) Outcome: Progressing Note: Evaluation of progress towards goal: hourly rounding, provide assistive device, assist with ambulation Problem: Activity Intolerance/Impaired Mobility Goal: Mobility/activity is maintained at optimum level for patient Description: Patient's goal is: INTERVENTIONS 1. Assess and monitor patient barriers to mobility and need for assistive/adaptive devices 2. Assess patient's emotional response to limitations 3. Collaborate with interdisciplinary teams and initiate plans and interventions as ordered 4. Encourage independent activity per tolerance 5. Maintain proper body alignment 6. Perform active/passive ROM as tolerated/ordered 7. Coordinate activities to conserve energy 8. Reposition patient 9. Ensure adequate rest/sleep time Outcome: Progressing Note: Evaluation of progress towards goal: encourage early and ongoing activity * Discharge Planning Note - Zoie Dey - 11/27/2024 1:06 PM EDT DISCHARGE PLANNING NOTE Referral sent to [facility] (P# ; F# ) * Op Note - Kirby Andersen MD - 11/27/2024 12:19 PM EDT ORTHOPAEDIC SURGERY OPERATIVE REPORT Date of Surgery: 11/27/2024 Surgeon: Kirby Andersen MD Correctional Program Specialist: Inocencia Kearney PA-C A skilled orthopedic physician assistant inventory manager was needed for assistance during this case due to its complexity. An orthopedic resident of the appropriate level was not available for this case thus these skilled hands of the appropriate orthopedic PA were needed and utilized for all critical components (p ostitioning, retracting, implant placement, joint reduction, and closure) of this complicated orthopedic case. Preoperative Diagnosis: Right displaced femoral neck fracture Postoperative Diagnosis: Right displaced femoral neck fracture Procedures Performed: Right hip hemiarthroplasty for femoral neck fracture (CPT 93814) Intraoperative fluoroscopy with surgeon interpretation, less than 1 hour (CPT 55438) Anesthesia: General IV Fluids: Per anesthesia record Tourniquet Time: None Estimated Blood Loss: 150 mL Complications: None Implants: Pipe Biomet Taperloc size 8 high offset femoral stem Pipe Biomet 44 mm femoral head with +0 mm taper Implant Name Type Inv. Item Serial No. Rn Transitional Care Lot No. LRB No. Used Action STEM FEM 136MM 8MM 133D HI OS TPR TPRLK PPS TI HIP PRFT FULL - SN/A - [id number] Orthopedic ImplantSTEM FEM 136MM 8MM 133D HI OS TPR TPRLK PPS TI HIP PRFT FULL N/A Pipe [employer]omet [id number] Right 1 Implanted INSERT ACTB STD TPR HIP E-2 - SN/A - [id number] Orthopedic Implant INSERT ACTB STD TPR HIP E-2 N/A Pipe [employer]omet [id number] Right 1 Implanted HEAD UNPLR 44MM BIOMR II E-2 HIP COCRMO MDLR - SN/A - [id number] Orthopedic Implant HEAD UNPLR 44MMBIOMR II E-2 HIP COCRMO MDLR N/A Pipe [employer]omet [id number] Right 1 Implanted Drains: None Specimens: None Intraoperative Findings: Appropriate component positioning clinically and with fluoroscopy at the conclusion of the case. No evidence of intraoperative fracture. Evidence of infection was not visualized at time of surgery. Indications For Procedure: Elif is a 79 y.o. female who sustained a right femoral neck fracture after a ground level fall. This was indicated for operative stabilization to allow early mobility and pain control. Given thefracture pattern as well as the patient's age and functional status, recommendation was made to proceed with operative intervention in the form of hemiarthroplasty. Informed consent was obtained after discussing the risks, benefits, and alternatives to the procedure. Risks include pain, bleeding, infection, damage to nearby structures, nerve damage (foot drop), fracture, dislocation, leg length discrepancy, hardware complications, need for further procedures, and anesthesia risks. The patient was then brought to the preoperative holding area on the day of surgery. Procedure Detail: The patient was met in the preoperative holding area where their identity, procedure to be performed, and correct operative site were identified. The operative site was marked with the attending's initials. The patient was taken back to the operative theater where they were placed under general anesthesia without complication. They were transferred to the fracture table and placed in the supine position with feet appropriately padded in boots. All bony prominences were well padded. The patient's right lower extremity was then prepped and draped in the usual sterile fashion. A preoperative timeout was performed, confirming the patient's identity, procedure to be performed, and correct operative site. Everyone present was in agreement. Preoperative antibiotics were administered. We marked out our planned incision 2 fingerbreadths lateral and distal to the ASIS. Incision was made through skin and subcutaneous tissue. Hemostasis was achieved with electrocautery. The tensor fascia was identified and the lateral fascia was incised. The lateral femoral cutaneous nerve was not encountered during the approach. Finger palpation was used to sweep the tensor laterally and we were able to fall into the interval between the TFL and sartorius. We were able to continue this plane between the TFL and rectus femoris. At this time we identified the innominate fascia and circumflex vessels. The vessels were coagulated with electrocautery and then the vessels and fascia were divided.The hip capsule surrounding the femoral neck was identified. Conde elevator and electrocautery were used to elevate the rectus fibers from the anterior capsule. Retractors were placed superior and inferior to the femoral neck. A capsulotomy was made and the superior and inferior limbs were tagged. The femoral neck fracture was then identified and retractors were repositioned intracapsular. We used a saw to perform a cleanup cut of the femoral neck approximately 1 fingerbreadth proximal to the lesser trochanter. We then removed this tissue and then removed the femoral head with the use of a corkscrew. This was sized on the back table to a size 44. A size 44 mm trial was placed within the acetabulum. This was noted to have appropriate fit. Inspection of the acetabulum did not demonstrate any tissue that required removal. There was no damage to the labrum noted. We performed our additional releases of the proximal femur, leaving the posterior capsule intact. The femur was then elevated and we opened the canal with the use of a paperboard box maker osteotome and used a curette to remove additional lateral bone. We used a canal finder to open the canal. We began broaching sequentially andwent up to a size 8 trial. We then placed a high offset neck and 44 mm head trial with -3 mm taper.This was reduced and was noted to have appropriate stability. Fluoroscopy demonstrated appropriate component position and canal fill. I did feel that although there was good stability, the leg was still slightly shorter compared to the contralateral side, so I planned to use a standard taper for our final implants. We then redislocated the hip and removed the trials. We irrigated the canal. We then placed our Pipe Biomet Taperloc size 8 high offset femoral stem. This was impacted to appropriate depth. No evidence of calcar fracture was noted. We placed our final 44 mm head with +0 mm taper and fully seated this. The hip was reduced without difficulty. We obtained final fluoroscopic imageswhich demonstrated appropriate component position without evidence of fracture. We then copiously irrigated the wound. Vancomycin and tobramycin powder were placed within the wound. Local anesthetic was injected into the joint capsule. The capsule was repaired with #5 Ethibond suture. The tensor fascia layer was closed with a running 0 PDS suture. The deep dermal layer was closed with 2-0 Monocryl followed by 3-0 Monocryl in a running subcuticular fashion for the skin. Sterile dressing was applied. All counts were correct x2 at this time. The drapes were taken down and the patient was awoken from anesthesia without complication. They were transferred back to their hospital bed and taken to PACU in stable condition. Postoperative Plan: The patient will be weight bearing as tolerated to the right lower extremity. No specific hip precautions are required. They will receive 24 hours of postoperative antibiotics followed by a 7 day course of p.o. Ceftin. They will be evaluated by PT and OT. The patient may resume DVT prophylaxis per the primary team, we would recommend at least ASA 81 mg twice daily. The patient will be discharged per the primary team once disposition has been established. We will see the patient back in clinic in appropriately 2 weeks time for clinical check and 3 view xrays of the right hip (AP pelvis/AP hip/cross table lateral) at that time. Kirby Andersen MD 11/27/2024 * Discharge Planning Note - LOVELY Ulloa - 11/27/2024 11:06 AM EDT JIMMIE met with patient and spoke with dtr Mandy via phone, introduced self & role. Pt was alert, oriented during assessment. Pt transferred to [facility] from [facility] where pt presented with c/o hip pain after fall. Pt states she tripped over her walker. Pt found to have R hip fracture. Pt will be going to OR today. Patient lives in assisted living apartment [facility] in [place]. Pt reports she uses walker for ambulation. Pt reports she is mostly independent with ADL's but does need assistance with bathing. No current home care outside of [place] staff that assist her. Pt denied any concern getting or affording medications or food. Pt PCP and pharmacy verified. Pt denied any home oxygen. Pt denied any tobacco, alcohol or illicit drug use. DC Plan will be SNF: per pt and dtr they know pt will need a rehab stay prior to returning to her [place]. Pt/dtr would like [facility] as her 1st choice as pt has been there in the past. Referral was sent. Await acceptance, will need pre-cert. Will have therapy eval post op. JIMMIE did provide pt dtr with SNF list, she will review for additional choice's. Pt will likely need BLS transport at discharge. SW to follow - LOVELY Ulloa 11/27/24 11:10 AM Initial Assessment Initial Assessment Flowsheet Row Most Recent Value Patient Information Initial Pre-Hospitalization Assessment Completed? Completed Primary Caregiver Self Support System Family Members Discharge Planning Living Arrangements Assisted Living Assistance Needed pt stated i need help in the shower and at other random times throughout the day Type of Residence Assisted living Care Facility Name [facility] No Does The Patient Have Existing Home DME? No Will the patient need DME at discharge? No, the patient has no home DME needs currently Stressors Income Information IP Hunger/Food Insecurity Screening Within the past 12 months we worried whether our food would run out before we got money to buy more. Never True Within the past 12 months the food we bought just didn't last and we didn't have money to get more.Never True Hunger Screening Complete? Yes If Eligible: Received Food Box Not Offered to Patient Caregiver/Family Member Caregiver/Support System Limitations Patient/Caregiver Goals Community Provider Referral Services Requested Patient expects to be discharged to: SNF Does the patient wish to have family/friend/caregiver involved in their discharge planning? Yes Does the patient plan to return home to a community setting? No, patient to discharge to facility-based provider. See Discharge Disposition Discharge Disposition SNF Does the patient need discharge transportation arranged? Yes Transportation Arranged Ambulance Patient choice offered Yes List Provided Yes [facility] List Provided [facility] Additional Comments (If Applicable) * Plan of Care - Terra Etienne RN - 11/27/2024 9:10 AM EDT Problem: Pain Goal: Patient goal is pain score less than 4, able to rest, and participant in treatment plan as appropriate Description: INTERVENTIONS: 1. Encourage patient or legal warehouse representative to report early pain and ask for pain medicine when needed 2. Assess pain using appropriate pain scale and include the scale used when documenting 3. Administer analgesics based on type and severity of pain and evaluate response within appropriate time frame 4. Implement non-pharmacological measures as appropriate and evaluate response 5. Consider cultural and social influences on pain and pain management 6. Notify LIP if interventions ineffective or patient reports new pain 7. Monitor vital signs including pulse ox, end-tidal CO2 based on pain intervention 8. Reassess pain per policy 9. Teach patient or legal warehouse representative interventions for comforting Outcome: Progressing Note: Evaluation of progress towards goal: Pt states current pain regimen relieves pain. Prn meds available. Pt encouraged to express needs for pain medication on a scale of 1-10. Vitals signs being monitored per policy. Problem: Safety Goal: Patient will be injury free during hospitalization Description: INTERVENTIONS: 1. Assess patient's risk for falls and implement fall prevention plan of care per policy 2. Provide and maintain a safe environment 3. Proper use of double Identifiers 4. Medication administration using the 5 rights 5. Hand hygiene 6. Specimens are labeled at the bedside 7. Instruct patient/ patient warehouse representative about use of safety devices 8. Include patient/ patient warehouse representative in decisions related to safety Outcome: Progressing Note: Evaluation of progress towards goal: RN implementing the above precautions to maintain pt safety. Pt remains free from falls and injuries since beginning of shift. Call light within reach. Bed rails up x2. Orientation reviewed. Hourly rounded maintained. Proper use of double identifiers used.Standard precautions maintained. * PT/OT/CHILDREN'S MINISTRIES DIRECTOR - Lisa Gonzalez, PT - 11/27/2024 7:58 AM EDT Physical Therapy PT Type of Visit: Medical deferral Reason For Medical Deferral: Medical procedure ongoing (Pt has pending sx for repair of hip fx.) * PT/OT/CHILDREN'S MINISTRIES DIRECTOR - PROSPER Mckinley/Alexsander - 11/27/2024 7:26 AM EDT Occupational Therapy OT Type of Visit: Medical deferral Reason For Medical Deferral: Medical procedure ongoing (Pt scheduled for surgery this date for Rt hip fracture repair) * Plan of Care - Maria Luisa Ko RN - 11/26/2024 11:39 PM EDT Problem: Potential for Compromised Skin Integrity Goal: Skin integrity is maintained or improved Description: Patient's goal is: INTERVENTIONS 1. Perform initial skin assessment on admission and as needed 2. Turn patient every 2 hours and PRN 3. Relieve pressure to bony prominences 4. Avoid shearing 5. Keep skin clean and dry 6. Alternate a full bath with partial baths for elderly 7. Apply lotion/moisturizer on skin 8. Monitor patient's hygiene practices 9. Float heels 10. Collaborate with interdisciplinary team and initiate plans and interventions as needed Outcome: Progressing Note: Evaluation of progress towards goal: perform shift skin assessment, assist with turning when needed, keep skin clean and dry Problem: Pain Goal: Patient goal is pain score less than 4, able to rest, and participant in treatment plan as appropriate Description: INTERVENTIONS: 1. Encourage patient or legal warehouse representative to report early pain and ask for pain medicine when needed 2. Assess pain using appropriate pain scale and include the scale used when documenting 3. Administer analgesics based on type and severity of pain and evaluate response within appropriate time frame 4. Implement non-pharmacological measures as appropriate and evaluate response 5. Consider cultural and social influences on pain and pain management 6. Notify LIP if interventions ineffective or patient reports new pain 7. Monitor vital signs including pulse ox, end-tidal CO2 based on pain intervention 8. Reassess pain per policy 9. Teach patient or legal warehouse representative interventions for comforting Outcome: Progressing Note: Evaluation of progress towards goal: Pain assessment per protocol, prn pain medication available, non pharmacological interventions offered Problem: Safety Goal: Patient will be injury free during hospitalization Description: INTERVENTIONS: 1. Assess patient's risk for falls and implement fall prevention plan of care per policy 2. Provide and maintain a safe environment 3. Proper use of double Identifiers 4. Medication administration using the 5 rights 5. Hand hygiene 6. Specimens are labeled at the bedside 7. Instruct patient/ patient warehouse representative about use of safety devices 8. Include patient/ patient warehouse representative in decisions related to safety Outcome: Progressing Note: Evaluation of progress towards goal: call light within reach, bed in lowest position, patientwearing nonslip footwear Problem: Infection Goal: Absence of infection during hospitalization Description: INTERVENTIONS 1. Assess and monitor for signs and symptoms of infection. 2. Monitor lab/diagnostic results. 3. Monitor all insertion sites i.e., indwelling lines, tubes and drains. 4. Monitor endotracheal (as able) and nasal secretions for changes in amount and color. 5. Administer medications as ordered. 6. Instruct and encourage patient and family to use good hand hygiene technique. 7. Identify and instruct patient/patient warehouse representative in use of appropriate isolation precautionsfor identified infection/symptoms. 8. Provide and discuss with patient/patient warehouse representative on educational MDRO sheet. 9. Encourage and monitor nutritional status daily and consult cyber forensics analyst if indicated. 10. Implement neutropenic guidelines as needed. Outcome: Progressing Note: Evaluation of progress towards goal: monitor for signs and symptoms of infection Problem: Knowledge Deficit Goal: Patient/patient warehouse representative demonstrates understanding of disease process, treatment plan,medications, and discharge instructions Description: INTERVENTIONS 1. Complete learning assessment and assess knowledge base 2. Provide teaching at level of understanding 3. Provide teaching via preferred learning method(s) Outcome: Progressing Note: Evaluation of progress towards goal: continue to provide and reinforce education on patient condition, answer patient questions, encourage patient to ask questions Problem: Discharge Planning Goal: Discharge to post-acute care, other facility, or home with appropriate resources Description: Patient's goal is: INTERVENTIONS 1. Conduct assessment to determine patient/family and health care team treatment goals, and need for post-acute services based on payer coverage, community resources, and patient preferences, and barriers to discharge 2. Coordinate with Social work, Care Navigation, and Utilization Review to arrange appropriate level of services according to patient's needs based on patient preference and payer coverage in collaboration with the physician and health care team 3. Address psychosocial, clinical, and financial barriers to discharge as identified in assessment in conjunction with the patient/family and health care team 4. Consult appropriate ancillary services (i.e.. PT/OT/ST, etc) as needed 5. Communicate with and update the patient/family, physician, and health care team regarding progress on the discharge plan 6. Identify discharge learning needs (meds, wound care, etc). 7. Arrange for needed discharge transportation as appropriate Outcome: Progressing Note: Evaluation of progress towards goal: discharge planning continued Problem: Moderate - High Risk Fall Score Description: Millan Fall Score of =/> 25 or indicated by [facility] Assessment Goal: Patient should be free from fall Description: Interventions: 1. [place] to environment 2. Hourly rounds addressing the 4 P's (Pain, Positioning, Possessions, Potty) 3. Clear area of hazards (spills, clutter, electrical cords, unnecessary equipment) 4. Place equipment (bed & TV controls, call light, phone, urinal) within reach 5. Encourage patient to wear glasses and hearing aides as appropriate 6. Maintain bed in lowest position 7. Lock wheels on bed/wheelchair 8. Provide adequate lighting, including night light 9. Assess need for additional bedding, food/fluids, pain med's prior to sleep/routinely 10. Provide gripper slippers or personal non-skid footwear 11. Teach patient and patient warehouse representative to maintain environment for safety and engage in all aspects of fall prevention program 12. Remind patient to call for help before getting out of bed 13. Initiate bed/chair/exit alarms supportive devices as appropriate, (chair wedge, no-skid floor mat, raised edge mattress, hip protectors) 14. Locate patient bed assignment for optimal visualization 15. Evaluate and identify Safe Patient Handling Equipment needs 16. Provide supervision when out of bed or chair 17. Utilize gait belt as needed to assist with ambulation 18. Place adaptive equipment (cane, walker) within reach 19. Request patient warehouse representative bring adaptive equipment/mobility aids from home or obtain and provide as needed 20. Consult pharmacy regarding effects of med's affecting mobility, cognition, and alternatives 21. Obtain physician order for PT if risk factors associated with mobility are present 22. Obtain physician order for OT as appropriate 23. Utilize diversional activities 24. Educate patient and patient warehouse representative how to maintain a safe environment during visitationtimes (notify nurse prior to leaving bedside) 25. Consider appropriateness of medical or non-program medical director 26. Set up voiding schedule as appropriate (every 2 hours) Outcome: Progressing Note: Evaluation of progress towards goal: hourly rounding, provide assistive device, assist with ambulation documented in this encounter Plan of Treatment DateTypeDepartmentCare Team (Latest Contact Info)Eusblhrspws96/26/2025 1:00 PM ESTOffice Visit [facility] [address] [place] [phone] Kirby Andersen MD [address] [place] [address] NameTypePriorityAssociated DiagnosesOrder ScheduleFingerstick glucose checks Point of Care TestingRoutine Type 2 diabetes mellitus with stage 3b chronic kidney disease, with long-term current use of insulin ([facility]) Ordered: 12/01/2024NameTypePriorityAssociated DiagnosesOrder ScheduleReferral to Nursing CareOutpatient ReferralRoutine Closed fracture of right hip, initial encounter ([facility]) Type 2 diabetes mellitus with stage 3b chronic kidney disease, with long-term current use of insulin ([facility]) Ordered: 12/01/2024Referral to Physical TherapyOutpatient ReferralRoutine Closed fracture of right hip, initial encounter ([facility]) Ordered: 12/01/2024Referral to Occupational TherapyOutpatient ReferralRoutine Closed fracture of right hip, initial encounter ([facility]) Ordered: 12/01/2024documented as of this encounter Goals GoalPatient Goal TypeAssociated ProblemsRecent ProgressPatient-Stated?Author <enter goal here> Abbie Holland LSW Note: Evaluation of progress towards goal: [facility] documented as of this encounter Procedures Procedure NamePriorityDate/TimeAssociated DiagnosisCommentsCLINICAL PATHOLOGY PPJDCAUtpnufh60/13/2025 2:21 PM EDT CLINICAL PATHOLOGY ZUZVHYFinsewx32/13/2025 2:21 PM EDT BEDSIDE NLLUYQJCvpvgpt42/13/2025 12:17 PM EDT BEDSIDE AOPWGAVAfnfgms65/13/2025 8:14 AM EDT CBC WITH AUTO OJTGMRMCWZBKRrwnkmg21/13/2025 6:02 AM EDT YREJERGGLWtesojb36/13/2025 6:02 AM EDT COMPREHENSIVE METABOLIC JEKOJIsrxfyo85/13/2025 6:02 AM EDT BEDSIDE YWZSXICLywfsel72/12/2025 8:57 PM EDT BEDSIDE HNRVGEKQqpfwgt93/12/2025 5:14 PM EDT BEDSIDE HNMGSXFRuyxjli10/12/2025 1:08 PM EDT BEDSIDE OCRMXNSTierrej03/12/2025 8:35 AM EDT CBC WITH AUTO OCJFPRWPCTCKVdlmlow79/12/2025 5:34 AM EDT IMMUNOELECTROPHORESIS FOR THERAPY ZEBRJZWBPNLgqspea32/12/2025 5:34 AM EDT PROTEIN ELECTROPHORESIS, YAJQXJxcgbtv52/12/2025 5:34 AM EDT QIJBBURUKPctphfs38/12/2025 5:34 AM EDT COMPREHENSIVE METABOLIC SNYXDKdcntiq98/12/2025 5:34 AM EDT BEDSIDE DYKMTFYAahibyx01/11/2025 9:41 PM EDT BEDSIDE DFAVOVESvuqhjx85/11/2025 4:34 PM EDT BEDSIDE BNDEZSSPqbxwyc2025 12:22 PM EDT BEDSIDE UYFTJVZUtkewql66/11/2025 8:48 AM EDT CBC WITH AUTO NRGSYFUJSGUEPybwfwy05/11/2025 5:32 AM EDT IRON AND TIBCAdd-On11/29/2024 5:32 AM EDT WDZFMFUEZZqjmnwl10/11/2025 5:32 AM EDT FOLATEAdd-On11/29/2024 5:32 AM EDT FERRITINAdd-On11/29/2024 5:32 AM EDT VITAMIN J01Wle-Hd52/11/2025 5:32 AM EDT COMPREHENSIVE METABOLIC ULQJHNvmlpao61/11/2025 5:32 AM EDT BEDSIDE PUYUCMWQvhleih25/10/2025 9:09 PM EDT BEDSIDE PEMNVYSSmkyaxq14/10/2025 4:34 PM EDT BEDSIDE SKRTHYDHaqdskp23/10/2025 1:50 PM EDT ECHO COMPLETE W NYTKVOQXIndxcnw23/10/2025 10:29 AM EDT PROTEIN CREAT RQSPQHkuvbca01/10/2025 8:18 AM EDT URINE CREATININE,USPUCWLydwjxa86/10/2025 8:18 AM EDT MICROSCOPIC CRGMIUfxnuzt51/10/2025 8:18 AM EDT UREA RANDOM, AJTMRFdncipl15/10/2025 8:18 AM EDT MICROALBUMIN / CREATININE URINE IGYMESekytuy18/10/2025 8:18 AM EDT SODIUM, URINE, DCUHJRAwpnojw41/10/2025 8:18 AM EDT URINALYSISAdd-On11/28/2024 8:18 AM EDT BEDSIDE BCVWKPCUszohzq34/10/2025 8:09 AM EDT CBC WITH AUTO HNAQTWLEHNPCVionkqx91/10/2025 7:54 AM EDT QSXTFEWHGMcodfbk29/10/2025 7:54 AM EDT COMPREHENSIVE METABOLIC WZPMGJfubwle28/10/2025 7:54 AM EDT US RETROPERITONEAL CHRJAQOYAZXB52/10/2025 7:41 AM EDT BEDSIDE OGSNHWNIphtyok56/09/2025 9:35 PM EDT XR CHEST 1 ATBlqgnbt09/09/2025 6:39 PM EDT BEDSIDE NUMEEQSRyapfpe44/09/2025 5:00 PM EDT XR HIP RT 2-3 VIEWS W OR WO TKWMCDZbbgdhj98/09/2025 4:30 PM EDT XR HIP RT 2-3 VIEWS W OR WO EOBLNLKcfzddg85/09/2025 2:30 PM EDT NM PARTIAL HIP LTXKOPRVZHM51/09/2025 12:19 PM EDT RIGHT HIP FX BEDSIDE QHZSPSPOoxtpri50/09/2025 10:22 AM EDT BEDSIDE GBXCIRHSbvedob61/09/2025 8:40 AM EDT PARATHYROID HORMOME, QOHMEPOTNW44/09/2025 5:42 AM EDT VITAMIN D 25 MTGDFHGOgqwwtr37/09/2025 5:42 AM EDT CBC (NO DIFF)Zxyxlqs3411/27/2024 5:42 AM EDT URIC ACIDAdd-On11/27/2024 5:42 AM EDT TKFYTBKXOFZtyjcum40/09/2025 5:42 AM EDT PHOSPHORUSAdd-On11/27/2024 5:42 AM EDT B-TYPE NATRIURETIC PEPTIDEAdd-On11/27/2024 5:42 AM EDT CK TOTALAdd-On11/27/2024 5:42 AM EDT ALBUMINAdd-On11/27/2024 5:42 AM EDT BASIC METABOLIC VXXFFDzeiyoe31/09/2025 5:42 AM EDT BEDSIDE JSDTRYJButfbpz85/08/2025 9:20 PM EDT BEDSIDE JHQAEUXUhvrves68/08/2025 5:[address] HIP RT WO ANQWRKVM83/08/2025 5:13 PM EDT URINE CREATININE,BSPNXQSUJC35/08/2025 4:45 PM EDT UREA RANDOM, EAFMUFPWL77/08/2025 4:45 PM EDT SODIUM, URINE, KYMTPLWIAE66/08/2025 4:45 PM EDT EDLLUPWXJCXGJI76/08/2025 4:45 PM EDT PULSE OXIMETRY, KDWKOotgdat52/08/2025 4:40 PM EDTECG 12-PMKSJXID26/08/2025 4:39 PM EDT CBC WITH AUTO ICEJWSRNXKFNJTYE58/08/2025 4:34 PM EDT IRON AND TIBCAdd-On11/26/2024 4:34 PM EDT VITAMIN D 25 FENAOAJHILT63/08/2025 4:34 PM EDT RETICULOCYTESAdd-On11/26/2024 4:34 PM EDT TYPE AND OCLITCBUSH62/08/2025 4:34 PM EDT VFCVQNPXZFNWAK93/08/2025 4:34 PM EDT B-TYPE NATRIURETIC PEPTIDEAdd-On11/26/2024 4:34 PM EDT FOLATEAdd-On11/26/2024 4:34 PM EDT FERRITINAdd-On11/26/2024 4:34 PM EDT VITAMIN T96Xrp-Hk67/08/2025 4:34 PM EDT CK TOTALAdd-On11/26/2024 4:34 PM EDT BASIC METABOLIC NUWUELQIJ24/08/2025 4:34 PM EDT documented in this encounter Results * Clinical Pathology Review (12/01/2024 2:21 PM EDT)ComponentValueRef RangeTest MethodAnalysis TimePerformed AtPathologist SignatureCase ReportClinical Pathology Report ? Case: [id number] ? Authorizing Provider: ??Rodri Bravo MD ?Collected: ? 12/01/2024 1421 ? Ordering Location: ? [facility] ??Received: ?12/01/2024 142 ? - GEN 7 Acute ? Pathologist: ? Randy Campbell MD ? Specimens: ?? 1) - Blood, Venous ? 2) - Blood, Venous ? 12/01/2024 6:59 PM [facility] Diagnosis Hypoalbuminemia with mild increase in acute phase reactants. No monoclonal protein identified. 12/01/2024 6:59 PM [facility] at 1859 EDTSpecimen (Source)Anatomical Location / LateralityCollection Method / VolumeCollection TimeReceived Time Venous blood / Ehadbgx6412/01/2024 2:21 PM EDT1 2:21 PM EDTVenous blood / Blmumcv6512/01/2024 2:21 PM EDT1 2:21 PM EDT Narrative Authorizing ProviderResult TypeResult StatusRodri Bravo MDPATHOLOGY/CYTOLOGY ORDERABLESFinal ResultPerforming OrganizationAddressCity/State/ZIP CodePhone Number [facility] [address] [place] [phone], * Clinical Pathology Review (12/01/2024 2:21 PM EDT)ComponentValueRef RangeTest MethodAnalysis TimePerformed AtPathologist SignatureCase ReportClinical Pathology Report ? Case: [id number] ? Authorizing Provider: ??Rodri Bravo MD ?Collected: ? 12/01/2024 1421 ? Ordering Location: ? [facility] ??Received: ?12/01/2024 1421 ? - GEN 7 Acute ? Pathologist: ? Randy Campbell MD ? Specimens: ?? 1) - Blood, Venous ? 2) - Blood, Venous ? 12/01/2024 6:59 PM [facility]Final Diagnosis Hypoalbuminemia with mild increase in acute phase reactants. No monoclonal protein identified. 12/01/2024 6:59 PM [facility] at 1859 EDTSpecimen (Source)Anatomical Location / LateralityCollection Method / VolumeCollection TimeReceived Time Venous blood / Matqlxe1212/01/2024 2:21 PM EDT1 2:21 PM EDTVenous blood / Kwudbrc6612/01/2024 2:21 PM EDT1 2:21 PM EDT Narrative Authorizing ProviderResult TypeResult StatusRodri Bravo MDPATHOLOGY/CYTOLOGY ORDERABLESFinal ResultPerforming OrganizationAddressCity/State/ZIP CodePhone Number [facility] [address] [place] [address], [place] [phone] * (ABNORMAL) Bedside Glucose *Place/Obtain serum glucose if >500 per glucometer. (12/01/2024 12:17PM EDT)ComponentValueRef RangeTest MethodAnalysis Time Performed AtPathologist SignatureBedside Glucose (POC)280(H)65 - 99 mg/dL 12/01/2024 12:19 PM [facility]YSpec[facility] (Source)Anatomical Location / LateralityCollection Method / VolumeCollection TimeReceived Time arterial/odlwufuns18/13/2025 12:17 PM EDT1 12:19 PM EDT Narrative Authorizing ProviderResult TypeResult StatusYasmin Goodrich MDPOINT OF CARE TEST ORDERABLESFinal ResultPerforming OrganizationAddressty/State/ZIP CodePhone Number [facility] [address] [place] [address], [place] * (ABNORMAL) Bedside Glucose *Place/Obtain serum glucose if >500 per glucometer. (12/01/2024 8:14 AM EDT)ComponentValueRef RangeTest MethodAnalysis Time Performed AtPathologist SignatureBedside Glucose (POC)200(H)65 - 99 mg/dL 12/01/2024 8:16 AM [facility]pec[facility] (Source)Anatomical Location / LateralityCollection Method / VolumeCollection TimeReceived Time arterial/xncbgybkn10/13/2025 8:14 AM EDT1 8:16 AM EDT Narrative Authorizing ProviderResult TypeResult StatusYasmin Goodrich MDPOINT OF CARE TEST ORDERABLESFinal ResultPerforming OrganizationAddressty/State/ZIP CodePhone Number [facility] [address] [facility] [address], [place] * Magnesium (12/01/2024 6:02 AM EDT)ComponentValueRef RangeTest MethodAnalysis TimePerformed AtPathologist SignatureMAGNESIUM2.11.8 - 2.6 mg/dL12/01/2024 7:22 AM [facility] LABORATORYSpecimen (Source)Anatomical Location / LateralityCollection Method / VolumeCollection TimeReceived Time BloodVenous blood / UnknownVenipuncture / Tyfbovv1112/01/2024 6:02 AM EDT 12/01/2024 6:44 AM EDT Narrative Authorizing ProviderResult TypeResult StatusSumundo QUICK BLOOD ORDERABLES Final ResultPerforming OrganizationAddressCity/State/ZIP CodePhone Number [facility] [address] [place] [address], * (ABNORMAL) Comprehensive metabolic panel (12/01/2024 6:02 AM EDT)Component ValueRef RangeTest MethodAnalysis TimePerformed AtPathologist SignatureSODIUM 809150 - 146 mmol/L1 7:22 AM [facility] POTASSIUM4.63.5 - 5.0 mmol/L1 7:22 AM [facility] LTRGFTGHZKNDCXIEUI98143 - 109 mmol/L1 7:22 AM [facility] LABORATORYCARBON UPZAYFL1980 - 32 mmol/L1 7:22 AM [facility] LABORATORYANION GAP85 - 15 mmol/L1 7:22 AM EDT [facility]ORATORYBLOOD UREA ZTEZQWID81(H)5 - 27 mg/dL 12/01/2024 7:22 AM [facility] LABORATORYCREATININE1.80(H)0.40 - 1.00 mg/dL12/01/2024 7:22 AM [facility]ORATORYComment: METHOD TRACEABLE TO IDMS YGVITEALWQJDKHF007(H)65 - 99 mg/dL12/01/2024 7:22 AM [facility] LABORATORYCALCIUM9.48.5 - 10.5 mg/dL12/01/2024 7:22 AM [facility]ORATORYTOTAL PROTEIN5.4(L)6.0 - 8.0 g/dL12/01/2024 7:22 AM [facility] LABORATORYALBUMIN3.0(L)3.2 - 5.3 g/dL12/01/2024 7:22 AM [facility] LABORATORYALKALINE EDOEJDFQMIG1031 - 130 U/L1 7:22 AM [facility] SXKAYEYJUTJDS29<=41 U/L1 7:22 AM [facility] ZEBIKTTSWBIQX29<=31 U/L1 7:22 AM [facility] LABORATORYBILIRUBIN,TOTAL0.50.3 - 1.2 mg/dL12/01/2024 7:22 AM [facility]ORYEGFR Non-Race Mtqznhxoq85(L)>=60 ml/min/1.73sq.m 12/01/2024 7:22 AM [facility]ORATORYComment: Reported eGFR is based on the CKD-EPI 2020 equation that does not use a race coefficient. Specimen (Source)Anatomical Location / LateralityCollection Method / Volume Collection TimeReceived TimeBloodVenous blood / UnknownVenipuncture / Unknown 12/01/2024 6:02 AM EDT1 6:44 AM EDT Narrative Authorizing ProviderResult TypeResult StatusSusalesa QUICK BLOOD ORDERABLES Final ResultPerforming OrganizationAddressCity/State/ZIP CodePhone Number [facility] [address] [place] [address], * (ABNORMAL) CBC auto differential (12/01/2024 6:02 AM EDT)ComponentValueRef RangeTest MethodAnalysis TimePerformed AtPathologist SignatureWBC5.94 - 11 x10E9/L1 7:01 AM [facility] LABORATORYRBC Count2.39 (L)3.8 - 5.2 X10E12/L1 7:01 AM [facility] Hemoglobin7.9(L)11.7 - 15.5 g/dL12/01/2024 7:01 AM [facility] WKLNMZYNRWHifcfzhvaj14.1(L)35 - 47 %12/01/2024 7:01 AM [facility] VVHLIAIFCAIMY7518 - 100 fL12/01/2024 7:01 AM [facility] YTGTVKJLBXKMA16.927 - 34 pg12/01/2024 7:01 AM [facility] RBZJVMTGSQTUOG14.032 - 36 g/dL12/01/2024 7:01 AM [facility] YCNQPCXZKRGWY84.411.5 - 15 %12/01/2024 7:01 AM [facility] LABORATORYPlatelet Ddwsh580(L)150 - 450 X10E9/L1 7:01 AM [facility]ORATORYMPV9.27 - 12 fL12/01/2024 7:01 AM [facility]ORATORYNeutrophils %67.7%12/01/2024 7:01 AM [facility]ORATORYLymphocytes %12.6%12/01/2024 7:01 AM [facility]ORYMonocytes %12.2%12/01/2024 7:01 AM [facility]ORYEosinophils %6.9%12/01/2024 7:01 AM [facility]OR[facility]ORYBasophils %0.6%12/01/2024 7:01 AM [facility] LABORATORYNeutrophils Absolute (A)4.01.5 - 6.6 10*3/uL 12/01/2024 7:01 AM [facility] LABORATORYLymphocytes Absolute 0.7(L)1.0 - 3.5 10*3/uL12/01/2024 7:01 AM [facility]ATORYMonocytes Absolute0.70.0 - 0.9 10*3/uL12/01/2024 7:01 AM [facility]ORATORYEosinophils Absolute0.40.0 - 0.4 10*3/uL12/01/2024 7:01 AM [facility] LABORATORYBasophils Absolute0.00.0 - 0.2 10*3/uL12/01/2024 7:01 AM [facility] LABORATORYDifferential TypeAUTOMATED BZRANFBFNWWZ04/13/2025 7:01 AM [facility] LABORATORYSpecimen (Source)Anatomical Location / LateralityCollection Method / VolumeCollection TimeReceived TimeBloodVenous blood / UnknownVenipuncture / Orepcjg9512/01/2024 6:02 AM EDT1 6:44 AM EDT Narrative Authorizing ProviderResult TypeResult StatusYasmin Goodrich MDLAB BLOOD ORDERABLES Final ResultPerforming OrganizationAddressCity/State/ZIP CodePhone Number [facility] [address] [place] [address], [place] [phone] * (ABNORMAL) Bedside Glucose *Place/Obtain serum glucose if >500 per glucometer. (11/30/2024 8:57 PM EDT)ComponentValueRef RangeTest MethodAnalysis Time Performed AtPathologist SignatureBedside Glucose (POC)250(H)65 - 99 mg/dL 11/30/2024 9:02 PM [facility]YSpecimen (Source)Anatomical Location / LateralityCollection Method / VolumeCollection TimeReceived Time arterial/pyzmdcqsm93/12/2025 8:57 PM EDT1 9:02 PM EDT Narrative Authorizing ProviderResult TypeResult Sofia Goodrich MDPOINT OF CARE TEST ORDERABLESFinal ResultPerforming OrganizationAddressCity/State/ZIP CodePhone Number [facility] [address] [place] [address], [place] * (ABNORMAL) Bedside Glucose *Place/Obtain serum glucose if >500 per glucometer. (11/30/2024 5:14 PM EDT)ComponentValueRef RangeTest MethodAnalysis Time Performed AtPathologist SignatureBedside Glucose (POC)287(H)65 - 99 mg/dL 11/30/2024 5:20 PM [facility]YSpecimen (Source)Anatomical Location / LateralityCollection Method / VolumeCollection TimeReceived Time arterial/ulouhxmfi98/12/2025 5:14 PM EDT1 5:20 PM EDT Narrative Authorizing ProviderResult TypeResult Sofia Goodrich [facility]ITALOINT [facility] CARE TEST ORDERABLESFinal ResultPerforming OrganizationAddressty/State/ZIP CodePhone Number [facility] [address] [place] [address], [place] * (ABNORMAL) Bedside Glucose *Place/Obtain serum glucose if >500 per glucometer. (11/30/2024 1:08 PM EDT)ComponentValueRef RangeTest MethodAnalysis Time Performed AtPathologist SignatureBedside Glucose (POC)274(H)65 - 99 mg/dL 11/30/2024 1:14 PM [facility]YSpecimen (Source)Anatomical Location / LateralityCollection Method / VolumeCollection TimeReceived Time arterial/xkiemedio46/12/2025 1:08 PM EDT1 1:14 PM EDT Narrative Authorizing ProviderResult TypeResult [facility] Institutelesa [facility] – MadrasOINT CARE TEST ORDERABLESFinal ResultPerforming OrganizationAddressty/State/ZIP CodePhone Number [facility] [address] [place] [address], [place] * (ABNORMAL) Bedside Glucose *Place/Obtain serum glucose if >500 per glucometer. (11/30/2024 8:35 AM EDT)ComponentValueRef RangeTest MethodAnalysis Time Performed AtPathologist SignatureBedside Glucose (POC)199(H)65 - 99 mg/dL 11/30/2024 8:41 AM [facility]YSpecimen (Source)Anatomical Location / LateralityCollection Method / VolumeCollection TimeReceived Time arterial/azclorfwc51/12/2025 8:35 AM EDT1 8:41 AM EDT Narrative Authorizing ProviderFour Corners Regional Health Centerult TypeFour Corners Regional Health Centerult Yuelesa [facility] CARE TEST ORDERABLESFinal ResultPerforming OrganizationAddLehigh Valley Hospital - Muhlenberg/State/[facility] CodePhone Number [facility] [address] [place] [address], [place] * (ABNORMAL) Immunoelectrophoresis for Therapy Monitoring (11/30/2024 5:34 AM EDT)ComponentValueRef RangeTest MethodAnalysis TimePerformed AtPathologist MjzdjnimnZXI84174 - 378 mg/dL12/02/2024 9:35 AM [facility] SFGERTSKYSELR743359 - 1,741 mg/dL12/02/2024 9:35 AM [facility] UESHQNZVOTVHT53(L)45 - 281 mg/dL12/02/2024 9:35 AM [facility] [facility] LABORATORYFREE KAPPA LT CHAINS4.92(H)0.33 - 1.94 mg/dL12/02/2024 9:35 AM [facility] LABORATORYImmune Profile InterpretationSee Pathology Fywbom7212/02/2024 9:35 AM [facility] LABORATORYFREE LAMBDA LT CHAINS3.72(H)0.57 - 2.63 mg/dL12/02/2024 9:35 AM [facility] LABORATORYFREE SHERRELL/LAMBD RATIO1.320.26 - 1.6512/02/2024 9:35 AM EDT [facility]ORATORYSpecimen (Source)Anatomical Location / LateralityCollection Method / VolumeCollection TimeReceived TimeBloodVenous blood / UnknownVenipuncture / Wvpgmce9811/30/2024 5:34 AM EDT1 6:25 AM EDT Narrative Authorizing ProviderResult TypeResult StatusRodri Bravo MDLAB BLOOD ORDERABLES Final ResultPerforming OrganizationAddressCity/State/ZIP CodePhone Number [facility] [address] [place] [address], * (ABNORMAL) Protein electrophoresis, serum (11/30/2024 5:34 AM EDT)Component ValueRef RangeTest MethodAnalysis TimePerformed AtPathologist SignatureTOTAL PROTEIN5.4(L)6.0 - 8.0 g/dL12/02/2024 9:34 AM [facility] LABORATORYALPHA 1 GLOBULIN0.5(H)0.1 - 0.4 g/dL12/02/2024 9:34 AM [facility] LABORATORYALPHA 2 GLOBULIN0.80.4 - 1.1 g/dL12/02/2024 9:34 AM [facility] LABORATORYBETA GLOBULIN0.70.5 - 1.2 g/dL 12/02/2024 9:34 AM [facility] LABORATORYGAMMA GLOBULIN0.60.5 - 1.6 g/dL12/02/2024 9:34 AM [facility] LABORATORYProtein Electrophoresis InterpSee Pathology Nqgxoa7912/02/2024 9:34 AM [facility] LABORATORYAlbumin2.8(L)3.4 - 5.3 g/dL12/02/2024 9:34 AM EDT [facility] LABORATORYSpecimen (Source)Anatomical Location / LateralityCollection Method / VolumeCollection TimeReceived TimeBloodVenous blood / UnknownVenipuncture / Wwnefrw8311/30/2024 5:34 AM EDT1 6:25 AM EDT Narrative Authorizing ProviderResult TypeResult StatusRodri QUICK BLOOD ORDERABLES Final ResultPerforming OrganizationAddressCity/State/ZIP CodePhone Number [facility] [address] [place] [address], * Magnesium (11/30/2024 5:34 AM EDT)ComponentValueRef RangeTest MethodAnalysis TimePerformed AtPathologist SignatureMAGNESIUM2.11.8 - 2.6 mg/dL11/30/2024 7:09 AM [facility] LABORATORYSpecimen (Source)Anatomical Location / LateralityCollection Method / VolumeCollection TimeReceived Time BloodVenous blood / UnknownVenipuncture / Rkomfnp4211/30/2024 5:34 AM EDT 11/30/2024 6:25 AM EDT Narrative Authorizing ProviderResult TypeResult StatusYasmin Goodrich [facility]DSATANT[facility] BLOOD ORDERABLES Final ResultPerforming OrganizationAddressCity/State/ZIP CodePhone Number [facility] [address] [place] [address], * (ABNORMAL) Comprehensive metabolic panel (11/30/2024 5:34 AM EDT)Component ValueRef RangeTest MethodAnalysis TimePerformed AtPathologist SignatureSODIUM 760626 - 146 mmol/L1 7:09 AM [facility] POTASSIUM5.03.5 - 5.0 mmol/L1 7:09 AM [facility] MAGNHYMPNFYUGDFVEZ96321 - 109 mmol/L1 7:09 AM [facility] LABORATORYCARBON SDHKERT7228 - 32 mmol/L1 7:09 AM [facility] LABORATORYANION GAP75 - 15 mmol/L1 7:09 AM [facility] LABORATORYBLOOD UREA CNXAAYQX35(H)5 - 27 mg/dL 11/30/2024 7:09 AM [facility] LABORATORYCREATININE1.86(H)0.40 - 1.00 mg/dL11/30/2024 7:09 AM [facility] LABORATORYComment: METHOD TRACEABLE TO IDNJ WUQJIFDQRUNQKBU824(H)65 - 99 mg/dL11/30/2024 7:09 AM [facility] LABORATORYCALCIUM9.58.5 - 10.5 mg/dL11/30/2024 7:09 AM [facility] LABORATORYTOTAL PROTEIN5.4(L)6.0 - 8.0 g/dL11/30/2024 7:09 AM [facility] LABORATORYALBUMIN3.1(L)3.2 - 5.3 g/dL11/30/2024 7:09 AM [facility] LABORATORYALKALINE JFARTMUAXVI0132 - 130 U/L1 7:09 AM [facility] HKTNGEXRMTGWK61<=41 U/L1 7:09 AM [facility] VSQHOLATXNQOB21<=31 U/L1 7:09 AM [facility] LABORATORYBILIRUBIN,TOTAL0.60.3 - 1.2 mg/dL11/30/2024 7:09 AM [facility] LABORATORYEGFR Non-Race Rxjiawqsd66(L)>=60 ml/min/1.73sq.m 11/30/2024 7:09 AM [facility] LABORATORYComment: Reported eGFR is based on the CKD-EPI 2020 equation that does not use a race coefficient. Specimen (Source)Anatomical Location / LateralityCollection Method / Volume Collection TimeReceived TimeBloodVenous blood / UnknownVenipuncture / Unknown 11/30/2024 5:34 AM EDT1 6:25 AM EDT Narrative Authorizing ProviderResult TypeResult StatusSumundo QUICK BLOOD ORDERABLES Final ResultPerforming OrganizationAddressCity/State/ZIP CodePhone Number [facility] [address] [place] [address], * (ABNORMAL) CBC auto differential (11/30/2024 5:34 AM EDT)ComponentValueRef RangeTest MethodAnalysis TimePerformed AtPathologist SignatureWBC8.14 - 11 x10E9/L1 7:53 AM [facility] LABORATORYRBC Count2.53 (L)3.8 - 5.2 X10E12/L1 7:53 AM [facility] Hemoglobin8.5(L)11.7 - 15.5 g/dL11/30/2024 7:53 AM [facility] WRMNMOXXEIEgpoerrdbh95.7(L)35 - 47 %11/30/2024 7:53 AM [facility] ZGTGFJTGPBZFA9786 - 100 fL11/30/2024 7:53 AM [facility] ZCFLWGOPRPUGY19.627 - 34 pg11/30/2024 7:53 AM [facility] PHQHPXRFUFSVMZ62.432 - 36 g/dL11/30/2024 7:53 AM [facility] HLQYXDVFUJGEA03.411.5 - 15 %11/30/2024 7:53 AM [facility] LABORATORYPlatelet Nducm204(L)150 - 450 X10E9/L1 7:53 AM EDT [facility] LABORATORYMPV9.87 - 12 fL11/30/2024 7:53 AM [facility] LABORATORYNeutrophils %80.4%11/30/2024 7:53 AM [facility] LABORATORYComment:This is an appended report. These results have been appended to a previously preliminary verified report.Lymphocytes % 5.6%11/30/2024 7:53 AM [facility] LABORATORYComment:This is an appended report. These results have been appended to a previously preliminary verified report.Monocytes %9.9%11/30/2024 7:53 AM [facility] LABORATORYComment:This is an appended report. These results have been appended to a previously preliminary verified report.Eosinophils % 3.8%11/30/2024 7:53 AM [facility] LABORATORYComment:This is an appended report. These results have been appended to a previously preliminary verified report.Basophils %0.3%11/30/2024 7:53 AM [facility] LABORATORYComment:This is an appended report. These results have been appended to a previously preliminary verified report.Neutrophils Absolute (A)6.51.5 - 6.6 10*3/uL11/30/2024 7:53 AM [facility] LABORATORYComment:This is an appended report. These results have been appended to a previously preliminary verified report.Lymphocytes Absolute0.5(L)1.0 - 3.5 10*3/uL11/30/2024 7:53 AM [facility] LABORATORYComment: This is an appended report. These results have been appended to a previously preliminary verified report.Monocytes Absolute0.80.0 - 0.9 10*3/uL11/30/2024 7:53 AM [facility] LABORATORYComment:This is an appended report. These results have been appended to a previously preliminary verified report.Eosinophils Absolute0.30.0 - 0.4 10*3/uL11/30/2024 7:53 AM [facility] LABORATORYComment:This is an appended report. These results have been appended to a previously preliminary verified report.Basophils Absolute0.00.0 - 0.2 10*3/uL11/30/2024 7:53 AM [facility] LABORATORYComment:This is an appended report. These results have been appended to a previously preliminary verified report.Differential TypeAUTOMATED UXHNTYKQLPYK45/12/2025 7:53 AM [facility] LABORATORYComment: This is an appended report. These results have been appended to a previously preliminary verified report.Specimen (Source)Anatomical Location / Laterality Collection Method / VolumeCollection TimeReceived TimeBloodVenous blood / UnknownVenipuncture / Unqpezn9111/30/2024 5:34 AM EDT1 6:25 AM EDT Narrative Authorizing ProviderResult TypeResult Sofia Goodrich MDLAB BLOOD ORDERABLES Final ResultPerforming OrganizationAddressCity/State/ZIP CodePhone Number [facility] [address] [place] [address], [place] [phone] * (ABNORMAL) Bedside Glucose *Place/Obtain serum glucose if >500 per glucometer. (11/29/2024 9:41 PM EDT)ComponentValueRef RangeTest MethodAnalysis Time Performed AtPathologist SignatureBedside Glucose (POC)236(H)65 - 99 mg/dL 11/29/2024 10:00 PM [facility] LABORATORYSpecimen (Source)Anatomical Location / LateralityCollection Method / VolumeCollection TimeReceived Time arterial/mitdrxxzb36/11/2025 9:41 PM EDT1 10:00 PM EDT Narrative Authorizing ProviderResult TypeResult Sofia Goodrich MDPOINT OF CARE TEST ORDERABLESFinal ResultPerforming OrganizationAddressCity/State/ZIP CodePhone Number [facility] [address] [place] [place] [address], [place] * (ABNORMAL) Bedside Glucose *Place/Obtain serum glucose if >500 per glucometer. (11/29/2024 4:34 PM EDT)ComponentValueRef RangeTest MethodAnalysis Time Performed AtPathologist SignatureBedside Glucose (POC)234(H)65 - 99 mg/dL 11/29/2024 4:36 PM [facility] LABORATORYSpecimen (Source)Anatomical Location / LateralityCollection Method / VolumeCollection TimeReceived Time arterial/wywajeyzf83/11/2025 4:34 PM EDT1 4:36 PM EDT Narrative Authorizing ProviderResult TypeResult StatusYasmin Goodrich MDPOINT OF CARE TEST ORDERABLESFinal ResultPerforming OrganizationAddressty/State/ZIP CodePhone Number [facility] [address] [place] [address], * (ABNORMAL) Bedside Glucose *Place/Obtain serum glucose if >500 per glucometer. (11/29/2024 12:22PM EDT)ComponentValueRef RangeTest MethodAnalysis Time Performed AtPathologist SignatureBedside Glucose (POC)239(H)65 - 99 mg/dL 11/29/2024 12:28 PM [facility]OR[facility]YSpecimen (Source)Anatomical Location / LateralityCollection Method / VolumeCollection TimeReceived Time arterial/vyghgkuxo13/11/2025 12:22 PM EDT1 12:28 PM EDT Narrative Authorizing ProviderResult TypeResult StatusYasmin [facility] MDPOINT OF CARE TEST ORDERABLESFinal ResultPerforming OrganizationAddressty/State/ZIP CodePhone Number [facility] [address] [place] [address], [place] * (ABNORMAL) Bedside Glucose *Place/Obtain serum glucose if >500 per glucometer. (11/29/2024 8:48 AM EDT)ComponentValueRef RangeTest MethodAnalysis Time Performed AtPathologist SignatureBedside Glucose (POC)201(H)65 - 99 mg/dL 11/29/2024 8:53 AM [facility]ORATORYSpecimen (Source)Anatomical Location / LateralityCollection Method / VolumeCollection TimeReceived Time arterial/cktzidtdc02/11/2025 8:48 AM EDT1 8:53 AM EDT Narrative Authorizing ProviderResult TypeResult StatusYasmin [facility] MDPOINT OF CARE TEST ORDERABLESFinal ResultPerforming OrganizationAddLe[facility]/State/ZIP CodePhone Number [facility] [address] [place] [address], [place] * Vitamin B12 (11/29/2024 5:32 AM EDT)ComponentValueRef RangeTest MethodAnalysis TimePerformed AtPathologist SignatureVITAMIN [id number] - 914 pg/mL11/29/2024 8:51 PM [facility] LABORATORYSpecimen (Source)Anatomical Location / LateralityCollection Method / VolumeCollection TimeReceived Time BloodVenous blood / UnknownVenipuncture / Iyakekh0411/29/2024 5:32 AM EDT 11/29/2024 5:42 AM EDT Narrative Authorizing ProviderResult TypeResult StatusYasmin QUICK BLOOD ORDERABLES Final ResultPerforming OrganizationAddressCity/State/ZIP CodePhone Number [facility] [address] [place] [address], * Folate (11/29/2024 5:32 AM EDT)ComponentValueRef RangeTest MethodAnalysis Time Performed AtPathologist SignatureFOLIC ACID17.9>5.8 ng/mL11/29/2024 8:50 PM [facility] LABORATORYSpecimen (Source)Anatomical Location / LateralityCollection Method / VolumeCollection TimeReceived TimeBloodVenous blood / UnknownVenipuncture / Xjigvxj8111/29/2024 5:32 AM EDT1 5:42 AM EDT Narrative Authorizing ProviderResult TypeResult StatusYasmin Goodrich MDLAB BLOOD ORDERABLES Final ResultPerforming OrganizationAddressCity/State/ZIP CodePhone Number [facility] [address] [place] [address], * Ferritin (11/29/2024 5:32 AM EDT)ComponentValueRef RangeTest MethodAnalysis TimePerformed AtPathologist DwznahccyFCRNPSQN8351 - 307 ng/mL11/29/2024 8:47 PM [facility] LABORATORYSpecimen (Source)Anatomical Location / LateralityCollection Method / VolumeCollection TimeReceived TimeBloodVenous blood / UnknownVenipuncture / Ymsfpvk9311/29/2024 5:32 AM EDT1 5:42 AM EDT Narrative Authorizing ProviderResult TypeResult StatusYasmin QUICK BLOOD ORDERABLES Final ResultPerforming OrganizationAddressCity/State/ZIP CodePhone Number [facility] [address] [place] [address], [place] [phone] * (ABNORMAL) Iron and TIBC (11/29/2024 5:32 AM EDT)ComponentValueRef RangeTest MethodAnalysis TimePerformed AtPathologist SqoqejeoqWDOL99(L)50 - 170 ug/dL 11/29/2024 7:38 PM [facility] XBIQDMPGYMZYJYXFREDQR884957 - 336 mg/dL11/29/2024 7:38 PM [facility] LABORATORYIRON BINDING 764115 - 425 ug/dL11/29/2024 7:38 PM [facility] IRON SATURATION4(L)15 - 50 % LPAGVZXUJQ21/11/2025 7:38 PM [facility] LABORATORYSpecimen (Source)Anatomical Location / LateralityCollection Method / VolumeCollection TimeReceived TimeBloodVenous blood / Unknown Venipuncture / Gngvyoa0511/29/2024 5:32 AM EDT1 5:42 AM EDT Narrative Authorizing ProviderResult TypeResult StatusYasmin QUICK BLOOD ORDERABLES Final ResultPerforming OrganizationAddressCity/State/ZIP CodePhone Number [facility] [address] [place] [address], * Magnesium (11/29/2024 5:32 AM EDT)ComponentValueRef RangeTest MethodAnalysis TimePerformed AtPathologist SignatureMAGNESIUM2.21.8 - 2.6 mg/dL11/29/2024 6:21 AM [facility] LABORATORYSpecimen (Source)Anatomical Location / LateralityCollection Method / VolumeCollection TimeReceived Time BloodVenous blood / UnknownVenipuncture / Efdjfxf5311/29/2024 5:32 AM EDT 11/29/2024 5:42 AM EDT Narrative Authorizing ProviderResult TypeResult StatusYasmin QUICK BLOOD ORDERABLES Final ResultPerforming OrganizationAddressCity/State/ZIP CodePhone Number [facility] [address] [place] [address], [place] [phone] * (ABNORMAL) Comprehensive metabolic panel (11/29/2024 5:32 AM EDT)Component ValueRef RangeTest MethodAnalysis TimePerformed AtPathologist SignatureSODIUM 645361 - 146 mmol/L1 6:21 AM [facility] POTASSIUM5.2(H)3.5 - 5.0 mmol/L1 6:21 AM [facility] ITMWNEAIIJLMGSRAIW73795 - 109 mmol/L1 6:21 AM [facility] LABORATORYCARBON FZNBBNM7218 - 32 mmol/L1 6:21 AM [facility] LABORATORYANION GAP75 - 15 mmol/L1 6:21 AM [facility] LABORATORYBLOOD UREA OOQKGHRB10(H)5 - 27 mg/dL 11/29/2024 6:21 AM [facility] LABORATORYCREATININE2.28(H)0.40 - 1.00 mg/dL11/29/2024 6:21 AM [facility] LABORATORYComment: METHOD TRACEABLE TO IDMS GZTKTXRQPPDEOKV875(H)65 - 99 mg/dL11/29/2024 6:21 AM [facility] LABORATORYCALCIUM9.58.5 - 10.5 mg/dL11/29/2024 6:21 AM [facility] LABORATORYTOTAL PROTEIN5.5(L)6.0 - 8.0 g/dL11/29/2024 6:21 AM [facility] LABORATORYALBUMIN3.1(L)3.2 - 5.3 g/dL11/29/2024 6:21 AM [facility] LABORATORYALKALINE IMBNCXZTICN2529 - 130 U/L1 6:21 AM [facility] OKDVVLTCRPZPR20(H)<=41 U/L1 6:21 AM [facility] IWYDFSZQDCSQU41(H)<=31 U/L1 6:21 AM [facility] LABORATORYBILIRUBIN,TOTAL0.40.3 - 1.2 mg/dL11/29/2024 6:21 AM [facility] LABORATORYEGFR Non-Race Nfxohufhb66(L)>=60 ml/min/1.73sq.m 11/29/2024 6:21 AM [facility] LABORATORYComment: Reported eGFR is based on the CKD-EPI 2020 equation that does not use a race coefficient. Specimen (Source)Anatomical Location / LateralityCollection Method / Volume Collection TimeReceived TimeBloodVenous blood / UnknownVenipuncture / Unknown 11/29/2024 5:32 AM EDT1 5:42 AM EDT Narrative Authorizing ProviderResult TypeResult StatusSumundo QUICK BLOOD ORDERABLES Final ResultPerforming OrganizationAddressCity/State/ZIP CodePhone Number [facility] [address] [place] [address], * (ABNORMAL) CBC auto differential (11/29/2024 5:32 AM EDT)ComponentValueRef RangeTest MethodAnalysis TimePerformed AtPathologist SignatureWBC7.04 - 11 x10E9/L1 6:08 AM [facility] LABORATORYRBC Count2.50 (L)3.8 - 5.2 X10E12/L1 6:08 AM [facility] Hemoglobin8.2(L)11.7 - 15.5 g/dL11/29/2024 6:08 AM [facility] BSMAUMNFNHQhftnkgjmi73.2(L)35 - 47 %11/29/2024 6:08 AM [facility] BXYFNBIQRAOBD8100 - 100 fL11/29/2024 6:08 AM [facility] IQFXQGRRMFZUY20.927 - 34 pg11/29/2024 6:08 AM [facility] FREPNEDCWONYLH47.032 - 36 g/dL11/29/2024 6:08 AM [facility] RMDWMFLWRBUQP71.311.5 - 15 %11/29/2024 6:08 AM [facility] LABORATORYPlatelet Eiuth062(L)150 - 450 X10E9/L1 6:08 AM EDT [facility] LABORATORYMPV9.57 - 12 fL11/29/2024 6:08 AM [facility] LABORATORYNeutrophils %70.5%11/29/2024 6:08 AM [facility] LABORATORYLymphocytes %12.5%11/29/2024 6:08 AM [facility] LABORATORYMonocytes %10.7%11/29/2024 6:08 AM [facility] LABORATORYEosinophils %5.8%11/29/2024 6:08 AM [facility] LABORATORYBasophils %0.5%11/29/2024 6:08 AM [facility] LABORATORYNeutrophils Absolute (A)5.01.5 - 6.6 10*3/uL 11/29/2024 6:08 AM [facility] LABORATORYLymphocytes Absolute 0.9(L)1.0 - 3.5 10*3/uL11/29/2024 6:08 AM [facility] LABORATORYMonocytes Absolute0.80.0 - 0.9 10*3/uL11/29/2024 6:08 AM [facility] LABORATORYEosinophils Absolute0.40.0 - 0.4 10*3/uL11/29/2024 6:08 AM [facility] LABORATORYBasophils Absolute0.00.0 - 0.2 10*3/uL11/29/2024 6:08 AM [facility] LABORATORYDifferential TypeAUTOMATED DVKNWLSHPLIH21/11/2025 6:08 AM [facility] LABORATORYSpecimen (Source)Anatomical Location / LateralityCollection Method / VolumeCollection TimeReceived TimeBloodVenous blood / UnknownVenipuncture / Tivdhrv4411/29/2024 5:32 AM EDT1 5:42 AM EDT Narrative Authorizing ProviderResult TypeResult StatusSusalesa QUICK BLOOD ORDERABLES Final ResultPerforming OrganizationAddressCity/State/ZIP CodePhone Number [facility] [address] [place] [address], * (ABNORMAL) Bedside Glucose *Place/Obtain serum glucose if >500 per glucometer. (11/28/2024 9:09 PM EDT)ComponentValueRef RangeTest MethodAnalysis Time Performed AtPathologist SignatureBedside Glucose (POC)223(H)65 - 99 mg/dL 11/28/2024 9:18 PM [facility] LABOR[facility]YSpecimen (Source)Anatomical Location / LateralityCollection Method / VolumeCollection TimeReceived Time arterial/jlwscpzot41/10/2025 9:09 PM EDT1 9:18 PM EDT Narrative Authorizing ProviderResult TypeResult StatusDo[facility] TEST ORDERABLESFinal ResultPerforming OrganizationAddressty/State/ZIP CodePhone Number [facility] [address] [place] [address], [place] * (ABNORMAL) Bedside Glucose *Place/Obtain serum glucose if >500 per glucometer. (11/28/2024 4:34 PM EDT)ComponentValueRef RangeTest MethodAnalysis Time Performed AtPathologist SignatureBedside Glucose (POC)271(H)65 - 99 mg/dL 11/28/2024 4:37 PM [facility] LABOR[facility]YSpecimen (Source)Anatomical Location / LateralityCollection Method / VolumeCollection TimeReceived Time arterial/aimddqhje44/10/2025 4:34 PM EDT1 4:37 PM EDT Narrative Authorizing ProviderResult TypeResult [facility] TEST ORDERABLESFinal ResultPerforming OrganizationAddressty/State/ZIP CodePhone Number [facility] [address] [place] [address], [place] * (ABNORMAL) Bedside Glucose *Place/Obtain serum glucose if >500 per glucometer. (11/28/2024 1:50 PM EDT)ComponentValueRef RangeTest MethodAnalysis Time Performed AtPathologist SignatureBedside Glucose (POC)234(H)65 - 99 mg/dL 11/28/2024 1:51 PM [facility] LABOR[facility]YSpecimen (Source)Anatomical Location / LateralityCollection Method / VolumeCollection TimeReceived Time arterial/tofxkcfuo20/10/2025 1:50 PM EDT1 1:51 PM EDT Narrative Authorizing ProviderResult TypeResult StatusSusan Joleen MDPOINT OF CARE TEST ORDERABLESFinal ResultPerforming OrganizationAddressCity/State/ZIP CodePhone Number [facility] [address] [place] [address], [place] * Echo complete W/ contrast (11/28/2024 10:29 AM EDT)ComponentValueRef RangeTest MethodAnalysis TimePerformed AtPathologist UwgnzdhzfIT7745 - 44 %XCELERALVIDd 4.404.42 - 6.14 cmXCELERALVIDs2.802.61 - 3.96 cmXCELERAIVS1.100.6 - 1.1 cm XCELERAPW1.100.6 - 1.1 cmXCELERATDI7.01cm/sXCELERAMV TDI E' (medial)5.43cm/s XCELERALA Volume Index51.2mL/c2AZRTCIEJ/A ratio1.31XCELERAE wave deceleration gpzy946.00msecXCELERAMV Peak E Kmf606.00cm/sXCELERAMV Peak A Cbj819.00cm/s XCELERALA size4.10cmXCELERAAortic root3.50cmXCELERALA qguxsx73.08qv1MWDKJGJGB diastolic dimension (basal)32.7weSMFXCGSCFCBK3.28cmXCELERAAV peak pev175.00 cm/sXCELERALVOT peak vel1.11m/sXCELERAAV VTI33.00cmXCELERALVOT peak VTI32.80cm XCELERAAV mean gradient4.00mmHgXCELERAAV peak gradient6.55mmHgXCELERAMV pressure 1/2 time69.00msXCELERAMV valve area p 1/2 method3.71jp9IROCDMZSJ peak gradient4.24mmHgXCELERAInferior Vena Cava Diameter2.00cmXCELERALV ESV A2C 103.00mLXCELERALV ESV A4C94.40mLXCELERALV RWT 2D50.00XCELERAAV Velocity Ratio 0.99XCELERAIVC lmrzefoa52mmDLNQAQTBwcm Ventricle Vpoo786.875763138456995t XCELERAInterventricular Septum Diastolic Thickness by 2L40zcBBHNPQTOls. RA hwnawyfa4zhNoRHTKDFEDY area16.4fo7SPQBGJUZZZIHT-2.09XCELERAZLVIDD-1.69XCELERA Energy loss index17.98XCELERAAnatomical RegionLateralityModalityChestN/A UltrasoundSpecimen (Source)Anatomical Location / LateralityCollection Method / VolumeCollection TimeReceived Time Narrative 11/28/2024 4:26 PM EDT Left Ventricle: Left ventricle appears normal in size. Systolic function is normal with an ejection fraction of 55-60%. ?Right??Ventricle: Right ventricular size is mildly dilated. The right ventricular basal diameter is 32.0 mm. Systolic function is mildly reduced. Normal tricuspid annular plane systolic excursion. ?Left??Atrium: Left atrium is severely dilated. The left atrial volume index is 51.2 mL/m2. ?Tricuspid??Valve: Insufficient regurgitant jet to assess right ventricular systolic pressure. RVSP is based on RA pressure of 3 mmHg. ?Mitral??Valve: There is moderate annular calcification. Left Ventricle Left ventricle appears normal in size. There is mild increased wall thickness/hypertrophy. Systolicfunction is normal with an ejection fraction of 55-60%. See wall score diagram for wall motion abnormalities. There is grade II (moderate) diastolic dysfunction and elevated left atrial pressure. Lateral E' is 7.01 cm/s. Medial E' is 5.43 cm/s. Right Ventricle Right ventricular size is mildly dilated. The right ventricular basal diameter is 32.0 mm. Systolicfunction is mildly reduced. Normal tricuspid annular plane systolic excursion. Left Atrium Left atrium is severely dilated. The left atrial volume index is 51.2 mL/m2. Right Atrium Right atrium is normal in size. The right atrial area is 16.5 cm2. IVC/SVC The right atrial pressure is estimated at 3 mmHg. Mitral Valve Mitral valve structure is normal. There is moderate annular calcification. There is trace regurgitation. There is no evidence of mitral valve stenosis. Tricuspid Valve Tricuspid valve appears to be normal. There is trace regurgitation. There is no evidence of tricuspid valve stenosis. Insufficient regurgitant jet to assess right ventricular systolic pressure. RVSP is based on RA pressure of 3 mmHg. Aortic Valve The aortic valve is trileaflet. The leaflets are not thickened and exhibit normal excursion. Pulmonic Valve Pulmonic valve structure is grossly normal. There is trace regurgitation. There is no evidence of pulmonic valve stenosis. The peak gradient is 4.24 mmHg. Ascending Aorta The aortic root is normal in size. Pericardium There is no pericardial effusion. The pericardium has a fat pad. Study Details A complete echo was performed using complete 2D, color flow Doppler and spectral Doppler. During the study the apical, parasternal, subcostal and suprasternal views were captured. Definity study was performed. Overall the study quality was adequate. The study had technical difficulties. Wall Scoring Baseline Score Index: 1.12 The following segments are hypokinetic: basal anterolateral and mid anterolateral. All other segments are normal. Authorizing ProviderResult TypeResult StatusSusan [facility] ECHO ORDERABLESFinal Result * (ABNORMAL) Urinalysis (11/28/2024 8:18 AM EDT)ComponentValueRef RangeTest MethodAnalysis TimePerformed AtPathologist SignatureCOLORYellowYellow 11/28/2024 6:06 PM [facility]ORATORYTURBIDITYClearClear 11/28/2024 6:06 PM [facility] LABORATORYSPECIFIC GRAVITY1.018 1.003 - 1.8531811/28/2024 6:06 PM [facility] LABORATORYNITRITE UfaqjedtCfztfibg46/10/2025 6:06 PM [facility] PH,URINE5.55.0 - 8.510 6:06 PM [facility] LEUKOCYTE PPCCHNPSTimxoarfNogehtxx53/10/2025 6:06 PM [facility] SEWCNTWSTMFIKHMIN23 mg/dL(A)Vltriubq35/10/2025 6:06 PM [facility] LABORATORYKETONES (URINE)IqazvdlwYxgbdwoe72/10/2025 6:06 PM [facility] LABORATORYUROBILINOGEN<1.1 eu/dL<1.1 eu/dL 11/28/2024 6:06 PM [facility] LABORATORYBILIRUBIN (URINE) GcvxqkmgHpqmcljy36/10/2025 6:06 PM [facility] BLOOD/HGBSmall(A)Bwtxmccl73/10/2025 6:06 PM [facility] LABORATORYHYALINE CASTS10 - 210 6:06 PM [facility] LABORATORYMUCOUSPresent(A)None11/28/2024 6:06 PM [facility]ORATORYR.B.CELLS<10 - 6:06 PM [facility]ORATORYSQUAMOUS LEQEUCMKMY27 - 6:06 PM [facility] LABORATORYW.B.CELLS29(H)0 - 6:06 PM [facility] LABORATORYGLUCOSE (URINE)500 mg/dL(A)Scakcuoj43/10/2025 6:06 PM EDT [facility]YSpecimen (Source)Anatomical Location / LateralityCollection Method / VolumeCollection TimeReceived TimeUrine (Urine, Indwelling Catheter)11/28/2024 8:18 AM EDT1 9:13 AM EDT Narrative [facility] - 11/28/2024 6:06 PM EDT Urine received without preservative. Delays in transport may affect results. Interpret with caution. A clinical correlation is recommended. Authorizing ProviderResult TypeResult StatusSumundo CURRIE ORDERABLESFinal ResultPerforming OrganizationAddressCity/State/ZIP CodePhone Number [facility] [address] [place] [address], * (ABNORMAL) Microscopic, urine (11/28/2024 8:18 AM EDT)ComponentValueRef Range Test MethodAnalysis TimePerformed AtPathologist SignatureMUCOUSPresent(A)None 11/28/2024 10:10 AM [facility] LABORATORYR.B.CELLS10 - 5 11/28/2024 10:10 AM [facility] LABORATORYW.B.CELLS25(H)0 - 5 11/28/2024 10:10 AM [facility]ORATORYSpecimen (Source) Anatomical Location / LateralityCollection Method / VolumeCollection Time Received TimeUrine (Urine, Indwelling Catheter)11/28/2024 8:18 AM EDT 11/28/2024 9:05 AM EDT Narrative Authorizing ProviderResult TypeResult Ricardo CURRIE ORDERABLES Final ResultPerforming OrganizationAddressty/State/ZIP CodePhone Number [facility] [address] [place] [address], * Sodium, urine, random (11/28/2024 8:18 AM EDT)ComponentValueRef RangeTest MethodAnalysis TimePerformed AtPathologist SignatureURINE SODIUM,GGZFGN18 mmol/L1 10:18 AM [facility] LABORATORYSpecimen (Source)Anatomical Location / LateralityCollection Method / VolumeCollection TimeReceived TimeUrine (Urine, Indwelling Catheter)11/28/2024 8:18 AM EDT 11/28/2024 9:13 AM EDT Narrative Authorizing ProviderResult TypeResult Ricardo CURRIE ORDERABLES Final ResultPerforming OrganizationAddressCity/State/ZIP CodePhone Number [facility] [address] [place] [address], [place] [phone] * Urea random, urine (11/28/2024 8:18 AM EDT)ComponentValueRef RangeTest Method Analysis TimePerformed AtPathologist SignatureURINE UREA NITROGEN,ATVHDL179 mg/dL11/28/2024 10:18 AM [facility]ORATORYSpecimen (Source)Anatomical Location / LateralityCollection Method / VolumeCollection TimeReceived TimeUrine (Urine, Indwelling Catheter)11/28/2024 8:18 AM EDT 11/28/2024 9:13 AM EDT Narrative Authorizing ProviderResult TypeResult Ricardo CURRIE ORDERABLES Final ResultPerforming OrganizationAddressty/State/ZIP CodePhone Number [facility] [address] [place] [address], [place] [phone] * Urine Creatinine,random (11/28/2024 8:18 AM EDT)ComponentValueRef RangeTest MethodAnalysis TimePerformed AtPathologist SignatureURINE CREATININE,RDM85.13 mg/dL11/28/2024 10:11 AM [facility]ORATORYSpecimen (Source)Anatomical Location / LateralityCollection Method / VolumeCollection TimeReceived TimeUrine (Urine, Indwelling Catheter)11/28/2024 8:18 AM EDT 11/28/2024 9:05 AM EDT Narrative Authorizing ProviderResult TypeResult StatusDane CURRIE ORDERABLES Final ResultPerforming OrganizationAddressCity/State/ZIP CodePhone Number [facility] [address] [place] [address], [place] [phone] * (ABNORMAL) Protein creat ratio (11/28/2024 8:18 AM EDT)ComponentValueRef Range Test MethodAnalysis TimePerformed AtPathologist SignatureURINE PROTEIN, RANDOM (MG/L)1,270(H)<120 mg/L1 10:18 AM [facility] LABORATORYURINE CREATININE,RDM83.62mg/dL11/28/2024 10:18 AM [facility]ORATORYU/PRO/RADIAL SAW OPERATOR RATIO CALC1.52(H)<=0. 10:18 AM EDT [facility]ORATORYSpecimen (Source)Anatomical Location / LateralityCollection Method / VolumeCollection TimeReceived TimeUrine (Urine, Indwelling Catheter)11/28/2024 8:18 AM EDT1 9:13 AM EDT Narrative [facility] - 11/28/2024 10:18 AM EDT Nephrotic Syndrome is associated with ratios >3.5 Authorizing ProviderResult TypeResult StatusYasmin CURRIE ORDERABLESFinal ResultPerforming OrganizationAddressCity/State/ZIP CodePhone Number [facility] [address] [place] [address], [place] [phone] * (ABNORMAL) Microalbumin - Albumin: Creatinine Urine Ratio (11/28/2024 8:18 AM EDT)ComponentValueRef RangeTest MethodAnalysis TimePerformed AtPathologist SignatureURINE CREATININE,RDM83.62mg/dL11/28/2024 10:18 AM [facility]ORATORYMALB/CREAT VIRKH145.3(H)0.0 - 30.0 mg/g1 10:18 AM [facility] LABORATORYMICROALBUMIN, URINE22.6(H)0.0 - 1.9 mg/dL11/28/2024 10:18 AM [facility] LABORATORYSpecimen (Source)Anatomical Location / LateralityCollection Method / VolumeCollection TimeReceived TimeUrine (Urine, Indwelling Catheter)11/28/2024 8:18 AM EDT 11/28/2024 9:13 AM EDT Narrative Authorizing ProviderResult TypeResult StatusYasmin CURRIE ORDERABLESFinal ResultPerforming OrganizationAddressCity/State/ZIP CodePhone Number [facility] [address] [place] [address], [place] [phone] * (ABNORMAL) Bedside Glucose *Place/Obtain serum glucose if >500 per glucometer. (11/28/2024 8:09 AM EDT)ComponentValueRef RangeTest MethodAnalysis Time Performed AtPathologist SignatureBedside Glucose (POC)204(H)65 - 99 mg/dL 11/28/2024 8:17 AM [facility]YSpecimen (Source)Anatomical Location / LateralityCollection Method / VolumeCollection TimeReceived Time arterial/ovrfdcxzp95/10/2025 8:09 AM EDT1 8:17 AM EDT Narrative Authorizing ProviderResult TypeResult Sofia Goodrich MDPOINT OF CARE TEST ORDERABLESFinal ResultPerforming OrganizationAddressCity/State/ZIP CodePhone Number [facility] [address] [place] [place] [address], [place] * Magnesium (11/28/2024 7:54 AM EDT)ComponentValueRef RangeTest MethodAnalysis TimePerformed AtPathologist SignatureMAGNESIUM2.31.8 - 2.6 mg/dL11/28/2024 8:29 AM [facility] LABORATORYSpecimen (Source)Anatomical Location / LateralityCollection Method / VolumeCollection TimeReceived Time BloodVenous blood / UnknownVenipuncture / Essxstq2511/28/2024 7:54 AM EDT 11/28/2024 8:06 AM EDT Narrative Authorizing ProviderResult TypeResult StatusYasmin QUICK BLOOD ORDERABLES Final ResultPerforming OrganizationAddressCity/State/ZIP CodePhone Number [facility] [address] [place] [address], * (ABNORMAL) Comprehensive metabolic panel (11/28/2024 7:54 AM EDT)Component ValueRef RangeTest MethodAnalysis TimePerformed AtPathologist SignatureSODIUM 224538 - 146 mmol/L1 8:29 AM [facility] POTASSIUM5.2(H)3.5 - 5.0 mmol/L1 8:29 AM [facility] ZMDNDXXYNIENARMOWA45382 - 109 mmol/L1 8:29 AM [facility] LABORATORYCARBON VXPLRMH5193 - 32 mmol/L1 8:29 AM [facility] LABORATORYANION GAP85 - 15 mmol/L1 8:29 AM EDT [facility] LABORATORYBLOOD UREA GSTWYRRH31(H)5 - 27 mg/dL 11/28/2024 8:29 AM [facility] LABORATORYCREATININE2.45(H)0.40 - 1.00 mg/dL11/28/2024 8:29 AM [facility] LABORATORYComment: METHOD TRACEABLE TO IDMS FDREIIMJJEOQCYG672(H)65 - 99 mg/dL11/28/2024 8:29 AM [facility] LABORATORYCALCIUM9.18.5 - 10.5 mg/dL11/28/2024 8:29 AM [facility] LABORATORYTOTAL PROTEIN5.7(L)6.0 - 8.0 g/dL11/28/2024 8:29 AM [facility] LABORATORYALBUMIN3.23.2 - 5.3 g/dL11/28/2024 8:29 AM [facility] LABORATORYALKALINE PPNQABJSSRE75001 - 130 U/L1 8:29 AM [facility] HQHDKVMWFWIDJ675(H)<=41 U/L1 8:29 AM [facility] EJUFCTWOWYUKU737(H)<=31 U/L1 8:29 AM [facility] LABORATORYBILIRUBIN,TOTAL0.40.3 - 1.2 mg/dL11/28/2024 8:29 AM [facility]OR[facility]ORYEGFR Non-Race Ecomewjzu05(L)>=60 ml/min/1.73sq.m 11/28/2024 8:29 AM [facility] LABORATORYComment: Reported eGFR is based on the CKD-EPI 2020 equation that does not use a race coefficient. Specimen (Source)Anatomical Location / LateralityCollection Method / Volume Collection TimeReceived TimeBloodVenous blood / UnknownVenipuncture / Unknown 11/28/2024 7:54 AM EDT1 8:06 AM EDT Narrative Authorizing ProviderResult TypeResult StatusSumundo QUICK BLOOD ORDERABLES Final ResultPerforming OrganizationAddressCity/State/ZIP CodePhone Number [facility] [address] [place] [address], * (ABNORMAL) CBC auto differential (11/28/2024 7:54 AM EDT)ComponentValueRef RangeTest MethodAnalysis TimePerformed AtPathologist SignatureWBC9.14 - 11 x10E9/L1 8:16 AM [facility] LABORATORYRBC Count2.91 (L)3.8 - 5.2 X10E12/L1 8:16 AM [facility] Hemoglobin9.3(L)11.7 - 15.5 g/dL11/28/2024 8:16 AM [facility] UBEAJMHLCKWimdoarxhl90.2(L)35 - 47 %11/28/2024 8:16 AM [facility] AXTDXRMTMFPPQ3424 - 100 fL11/28/2024 8:16 AM [facility] CTBZTORPMGPWP17.127 - 34 pg11/28/2024 8:16 AM [facility] PCEOMGRAGUEBWL56.132 - 36 g/dL11/28/2024 8:16 AM [facility] QLDNXLOUCJZSN21.611.5 - 15 %11/28/2024 8:16 AM [facility] LABORATORYPlatelet Uscnl147(L)150 - 450 X10E9/L1 8:16 AM [facility] LABORATORYMPV9.07 - 12 fL11/28/2024 8:16 AM [facility] LABORATORYNeutrophils %86.7%11/28/2024 8:16 AM [facility] LABORATORYLymphocytes %4.5%11/28/2024 8:16 AM [facility] LABORATORYMonocytes %8.3%11/28/2024 8:16 AM [facility] LABORATORYEosinophils %0.3%11/28/2024 8:16 AM [facility] LABORATORYBasophils %0.2%11/28/2024 8:16 AM [facility] LABORATORYNeutrophils Absolute (A)7.9(H)1.5 - 6.6 10*3/uL 11/28/2024 8:16 AM [facility] LABORATORYLymphocytes Absolute 0.4(L)1.0 - 3.5 10*3/uL11/28/2024 8:16 AM [facility] LABORATORYMonocytes Absolute0.80.0 - 0.9 10*3/uL11/28/2024 8:16 AM [facility] LABORATORYEosinophils Absolute0.00.0 - 0.4 10*3/uL11/28/2024 8:16 AM [facility] LABORATORYBasophils Absolute0.00.0 - 0.2 10*3/uL11/28/2024 8:16 AM [facility] LABORATORYDifferential TypeAUTOMATED UXLMMSESUDJN44/10/2025 8:16 AM [facility] LABORATORYSpecimen (Source)Anatomical Location / LateralityCollection Method / VolumeCollection TimeReceived TimeBloodVenous blood / UnknownVenipuncture / Xboxwcq1011/28/2024 7:54 AM EDT1 8:06 AM EDT Narrative Authorizing ProviderResult TypeResult StatusSumundo QUICK BLOOD ORDERABLES Final ResultPerforming OrganizationAddressCity/State/ZIP CodePhone Number [facility] [address] [place] [address], [place] [phone] * Ultrasound retroperitoneal complete (11/28/2024 7:41 AM EDT)Anatomical Region LateralityModalityBodyUltrasoundSpecimen (Source)Anatomical Location / LateralityCollection Method / VolumeCollection TimeReceived Time11/28/2024 7:58 AM EDT Narrative 11/28/2024 10:14 AM EDT US RETROPERITONEAL COMPLETE HISTORY: Acute kidney injury. Chronic kidney disease. COMPARISON: None TECHNIQUE: Grayscale and color Doppler sonographic images of the urinary bladder and bilateral kidneys. FINDINGS: Suboptimal evaluation due to body habitus, overlying bowel gas and tolerance for changing positionssecondary to hip pain. Right kidney: * ??9.2 x 3.6 x 4.3 cm * ??Cortex: 0.4 cm. ??Normal echogenicity. ?? * ??No hydronephrosis, mass, or calculi. Left kidney: * ??9.4 x 4.0 x 4.0 cm * ??Cortex: 0.6 cm. ??Normal echogenicity. ?? * ??No hydronephrosis, mass, or calculi. Bladder not well visualized due to echogenic and shadowing Haley catheter within the lumen. IMPRESSION: Unremarkable ultrasound of the kidneys. Approved by Res Gen Webb MD ??on 11/28/2024 7:58 AM IJayden MD have personally reviewed the image(s) and agree with and/or edited the report Finalized by Jayden Fernandez MD on 11/28/2024 10:14 AM Procedure Note Jayden Fernandez MD - 11/28/2024 US RETROPERITONEAL COMPLETE HISTORY: Acute kidney injury. Chronic kidney disease. COMPARISON: None TECHNIQUE: Grayscale and color Doppler sonographic images of the urinarybladder and bilateral kidneys. FINDINGS: Suboptimal evaluation due to body habitus, overlying bowel gas andtolerance for changing positions secondary to hip pain. Right kidney: * 9.2 x 3.6 x 4.3 cm * Cortex: 0.4 cm. Normal echogenicity. * No hydronephrosis, mass, or calculi. Left kidney: * 9.4 x 4.0 x 4.0 cm * Cortex: 0.6 cm. Normal echogenicity. * No hydronephrosis, mass, or calculi. Bladder not well visualized due to echogenic and shadowing Haley catheterwithin the lumen. IMPRESSION: Unremarkable ultrasound of the kidneys. Approved by Mally Webb MD on 11/28/2024 7:58 AM I, Jayden Fernandez MD have personally reviewed the image(s) and agreewith and/or edited the report Finalized by Jayden Fernandez MD on 11/28/2024 10:14 AM Authorizing ProviderResult TypeResult StatusHib Gely Isshireen MDIMG US ORDERABLES Final Result * (ABNORMAL) Bedside Glucose *Place/Obtain serum glucose if >500 per glucometer. (11/27/2024 9:35 PM EDT)ComponentValueRef RangeTest MethodAnalysis Time Performed AtPathologist SignatureBedside Glucose (POC)290(H)65 - 99 mg/dL 11/27/2024 9:36 PM [facility]OR[facility]YSpecimen (Source)Anatomical Location / LateralityCollection Method / VolumeCollection TimeReceived Time arterial/gfcyjwpzs31/09/2025 9:35 PM EDT1 9:36 PM EDT Narrative Authorizing ProviderResult TypeResult StatusSusalesa Quesadao MDPOINT OF CARE TEST ORDERABLESFinal ResultPerforming OrganizationAddressCity/State/ZIP CodePhone Number [facility] [address] [place] [address], [place] * X-ray chest 1 view (11/27/2024 6:39 PM EDT)Anatomical RegionLateralityModality Body, ChestN/AComputed RadiographySpecimen (Source)Anatomical Location / LateralityCollection Method / VolumeCollection TimeReceived Time11/27/2024 9:54 PM EDT Narrative 11/27/2024 9:55 PM EDT EXAM: XR CHEST 1 VW CLINICAL INFORMATION: CHF. COMPARISON: 06/09/2016 FINDINGS: There are no pleural effusions. There are low lung volumes with some associated hypoventilatory changes. Next able heart IMPRESSION: 1. No acute cardiopulmonary disease. Finalized by Adolfo Jessica MD on 11/27/2024 9:55 PM Procedure Note Adolfo Jessica MD - 11/27/2024 EXAM: XR CHEST 1 VW CLINICAL INFORMATION: CHF. COMPARISON: 06/09/2016 FINDINGS: There are no pleural effusions. There are low lung volumes with someassociated hypoventilatory changes. Next able heart IMPRESSION: 1. No acute cardiopulmonary disease. Finalized by Adolfo Jessica MD on 11/27/2024 9:55 PM Authorizing ProviderResult TypeResult StatusDasaud Garcia MDIMG DIAGNOSTIC IMAGING ORDERABLESFinal Result * (ABNORMAL) Bedside Glucose *Place/Obtain serum glucose if >500 per glucometer. (11/27/2024 5:00 PM EDT)ComponentValueRef RangeTest MethodAnalysis Time Performed AtPathologist SignatureBedside Glucose (POC)245(H)65 - 99 mg/dL 11/27/2024 5:03 PM [facility] LABORATORYSpecimen (Source)Anatomical Location / LateralityCollection Method / VolumeCollection TimeReceived Time arterial/muzhhsoac20/09/2025 5:00 PM EDT1 5:03 PM EDT Narrative Authorizing ProviderResult TypeResult StatusSumundo Goodrich [facility]ITALOINT [facility] CARE TEST ORDERABLESFinal ResultPerforming OrganizationAddressCity/State/ZIP CodePhone Number [facility] [address] [place] [address], [place] * X-ray hip right 2-3 views with or without pelvis (11/27/2024 4:30 PM EDT) Anatomical RegionLateralityModalityLower Extremities, MSK, HipRightComputed RadiographySpecimen (Source)Anatomical Location / LateralityCollection Method / VolumeCollection TimeReceived Time11/27/2024 5:32 PM EDT Narrative 11/27/2024 5:33 PM EDT XR HIP RT 2-3 VIEWS W OR WO PELVIS HISTORY: Postop. Pain COMPARISON: none IMPRESSION: PELVIS: No displaced or pelvic fracture. Degenerative changes sacral iliac joints, lower lumbar spine. Left hip osteoarthrosis. Vascular calcifications. RIGHT HIP: Right hip arthroplasty, no gross hardware complication. Expected soft tissue emphysema, heterogeneity, anticipated in the recent postoperative setting. Finalized by Everett Rivera MD on 11/27/2024 5:33 PM Procedure Note Everett Rivera MD - 11/27/2024 XR HIP RT 2-3 VIEWS W OR WO PELVIS HISTORY: Postop. Pain COMPARISON: none IMPRESSION: PELVIS: No displaced or pelvic fracture. Degenerative changes sacraliliac joints, lower lumbar spine. Left hip osteoarthrosis. Vascular calcifications. RIGHT HIP: Right hip arthroplasty, no gross hardware complication. Expected softtissue emphysema, heterogeneity, anticipated in the recent postoperativesetting. Finalized by Everett Rivera MD on 11/27/2024 5:33 PM Authorizing ProviderResult TypeResult StatusMerris R Christel [facility] DIAGNOSTIC IMAGING ORDERABLESFinal Result * X-ray hip right 2-3 views with or without pelvis (11/27/2024 2:30 PM EDT) Anatomical RegionLateralityModalityLower Extremities, MSK, HipRightRadio FluoroscopySpecimen (Source)Anatomical Location / LateralityCollection Method / VolumeCollection TimeReceived Time11/27/2024 2:34 PM EDT Narrative 11/27/2024 2:34 PM EDT XR HIP RT 2-3 VIEWS W OR WO PELVIS IMPRESSION: right dylon Intraoperative fluoroscopy provided. The reference air kerma was 1.35 mGy. Finalized by Boyd Thompson MD on 11/27/2024 2:34 PM Procedure Note Boyd Thompson MD - 11/27/2024 XR HIP RT 2-3 VIEWS W OR WO PELVIS IMPRESSION: right dylon Intraoperative fluoroscopy provided. The reference air kerma was 1.35 mGy. Finalized by Boyd Thompson MD on 11/27/2024 2:34 PM Authorizing ProviderResult TypeResult Harris [facility] DIAGNOSTIC IMAGING ORDERABLESFinal Result * (ABNORMAL) Bedside Glucose *Place/Obtain serum glucose if >500 per glucometer. (11/27/2024 10:22AM EDT)ComponentValueRef RangeTest MethodAnalysis Time Performed AtPathologist SignatureBedside Glucose (POC)174(H)65 - 99 mg/dL 11/27/2024 10:24 AM [facility]YSpecimen (Source)Anatomical Location / LateralityCollection Method / VolumeCollection TimeReceived Time arterial//09/2025 10:22 AM EDT1 10:24 AM EDT Narrative Authorizing ProviderResult TypeResult Sofia Goodrich MDPOINT OF CARE TEST ORDERABLESFinal ResultPerforming OrganizationAddressCity/State/ZIP CodePhone Number [facility] [address] [place] [address], [place] * (ABNORMAL) Bedside Glucose *Place/Obtain serum glucose if >500 per glucometer. (11/27/2024 8:40 AM EDT)ComponentValueRef RangeTest MethodAnalysis Time Performed AtPathologist SignatureBedside Glucose (POC)147(H)65 - 99 mg/dL 11/27/2024 11:27 AM [facility]YSpecimen (Source)Anatomical Location / LateralityCollection Method / VolumeCollection TimeReceived Time arterial/shtmbmbiw57/09/2025 8:40 AM EDT1 11:27 AM EDT Narrative Authorizing ProviderResult TypeResult Sofia Goodrich MDPOINT OF CARE TEST ORDERABLESFinal ResultPerforming OrganizationAddressty/State/[facility] CodePhone Number [facility] [address] [place] [address], [place] * Albumin (11/27/2024 5:42 AM EDT)ComponentValueRef RangeTest MethodAnalysis TimePerformed AtPathologist SignatureALBUMIN3.43.2 - 5.3 g/dL11/27/2024 6:05 PM [facility] LABORATORYSpecimen (Source)Anatomical Location / LateralityCollection Method / VolumeCollection TimeReceived TimeBloodVenous blood / UnknownVenipuncture / Jrnjzsi9411/27/2024 5:42 AM EDT1 6:13 AM EDT Narrative Authorizing ProviderResult TypeResult StatusDanial Sukhwinder MDLAB BLOOD ORDERABLES Final ResultPerforming OrganizationAddressCity/State/ZIP CodePhone Number [facility] [address] [place] [address], * Phosphorus (11/27/2024 5:42 AM EDT)ComponentValueRef RangeTest MethodAnalysis TimePerformed AtPathologist SignaturePHOSPHORUS4.32.4 - 4.9 mg/dL11/27/2024 6:05 PM [facility] LABORATORYSpecimen (Source)Anatomical Location / LateralityCollection Method / VolumeCollection TimeReceived Time BloodVenous blood / UnknownVenipuncture / Zeabdwu4811/27/2024 5:42 AM EDT 11/27/2024 6:13 AM EDT Narrative Authorizing ProviderResult TypeResult StatusDasaud Garcia MDLAB BLOOD ORDERABLES Final ResultPerforming OrganizationAddressCity/State/ZIP CodePhone Number [facility] [address] [place] [address], * (ABNORMAL) CK Total (11/27/2024 5:42 AM EDT)ComponentValueRef RangeTest Method Analysis TimePerformed AtPathologist QqpeqvtrkNJH46(L)24 - 170 U/L1 6:05 PM [facility] LABORATORYSpecimen (Source)Anatomical Location / LateralityCollection Method / VolumeCollection TimeReceived Time BloodVenous blood / UnknownVenipuncture / Gmvfyun2811/27/2024 5:42 AM EDT 11/27/2024 6:13 AM EDT Narrative Authorizing ProviderResult TypeResult StatusDanial Sukhwinder MDLAB BLOOD ORDERABLES Final ResultPerforming OrganizationAddressCity/State/ZIP CodePhone Number [facility] [address] [place] [address], * (ABNORMAL) B-type natriuretic peptide (11/27/2024 5:42 AM EDT)ComponentValue Ref RangeTest MethodAnalysis TimePerformed AtPathologist IundcaqmjUTA879(H) <=100 pg/mL11/27/2024 6:28 PM [facility] LABORATORYSpecimen (Source)Anatomical Location / LateralityCollection Method / VolumeCollection TimeReceived TimeBloodVenous blood / UnknownVenipuncture / Nchxsjq5911/27/2024 5:42 AM EDT1 6:13 AM EDT Narrative Authorizing ProviderResult TypeResult StatusDasaud Garcia MDSHANICE BLOOD ORDERABLES Final ResultPerforming OrganizationAddressCity/State/ZIP CodePhone Number [facility] [address] [place] [address], [place] [phone] * Uric acid (11/27/2024 5:42 AM EDT)ComponentValueRef RangeTest MethodAnalysis TimePerformed AtPathologist SignatureURIC ACID6.62.6 - 7.2 mg/dL11/27/2024 6:05 PM [facility] LABORATORYSpecimen (Source)Anatomical Location / LateralityCollection Method / VolumeCollection TimeReceived Time BloodVenous blood / UnknownVenipuncture / Nvuicgy6111/27/2024 5:42 AM EDT 11/27/2024 6:13 AM EDT Narrative Authorizing ProviderResult TypeResult StatusDanial Sukhwinder MDLAB BLOOD ORDERABLES Final ResultPerforming OrganizationAddressCity/State/ZIP CodePhone Number [facility] [address] [place], [place] [address], [place] [phone] * Prealbumin (11/27/2024 5:42 AM EDT)ComponentValueRef RangeTest MethodAnalysis TimePerformed AtPathologist IzxhgzhqfITHMGDJXUL8939 - 45 mg/dL11/27/2024 6:50 AM [facility]ATORYSpecimen (Source)Anatomical Location / LateralityCollection Method / VolumeCollection TimeReceived TimeBloodVenous blood / UnknownVenipuncture / Jmxygpo0011/27/2024 5:42 AM EDT1 6:13 AM EDT Narrative Authorizing ProviderResult TypeResult StatusPattishaheen Hong Sariah MDLAB BLOOD ORDERABLESFinal ResultPerforming OrganizationAddressCity/State/ZIP CodePhone Number [facility] [address] [place] [address], * (ABNORMAL) CBC without diff (11/27/2024 5:42 AM EDT)ComponentValueRef Range Test MethodAnalysis TimePerformed AtPathologist SignatureWBC8.14 - 11 x10E9/L 11/27/2024 6:29 AM [facility] LABORATORYRBC Count3.30(L)3.8 - 5.2 X10E12/L1 6:29 AM [facility] Isofftrfvi25.0(L)11.7 - 15.5 g/dL11/27/2024 6:29 AM [facility] EACQFELVAKGuijjmpqxk43.1(L)35 - 47 %11/27/2024 6:29 AM [facility] WOHCQYVEJYMPU8667 - 100 fL11/27/2024 6:29 AM [facility] REJLSEVRWAFJC16.327 - 34 pg11/27/2024 6:29 AM [facility] OCSXBHVIBKWGJP56.232 - 36 g/dL11/27/2024 6:29 AM [facility] HDPDOEHHJNHXI83.611.5 - 15 %11/27/2024 6:29 AM [facility] LABORATORYPlatelet Hqpka227(L)150 - 450 X10E9/L1 6:29 AM [facility] LABORATORYMPV9.07 - 12 fL11/27/2024 6:29 AM [facility]ORATORYSpecimen (Source)Anatomical Location / LateralityCollection Method / VolumeCollection TimeReceived TimeBloodVenous blood / UnknownVenipuncture / Psktnmo1511/27/2024 5:42 AM EDT1 6:13 AM EDT Narrative Authorizing ProviderResult TypeResult StatusF[facility] Gely Rolle Android App Review Source BLOOD ORDERABLESFinal ResultPerforming OrganizationAddressty/State/ZIP CodePhone Number [address] [place] [address], * (ABNORMAL) Parathyroid Hormone, intact (11/27/2024 5:42 AM EDT)ComponentValue Ref RangeTest MethodAnalysis TimePerformed AtPathologist SignaturePTH INTACT 116(H)12 - 88 pg/mL11/27/2024 7:02 AM [facility] Specimen (Source)Anatomical Location / LateralityCollection Method / Volume Collection TimeReceived TimeBloodVenous blood / UnknownVenipuncture / Unknown 11/27/2024 5:42 AM EDT1 6:13 AM EDT Narrative Authorizing ProviderResult TypeResult StatusGonzalo Rolle Android App Review Source BLOOD ORDERABLESFinal ResultPerforming OrganizationAddressty/State/ZIP CodePhone Number [place] [phone] [place] [address], * (ABNORMAL) Vitamin D 25 hydroxy (11/27/2024 5:42 AM EDT)ComponentValueRef RangeTest MethodAnalysis TimePerformed AtPathologist SignatureVITAMIN D 25 HYD TOT23.1(L)30.0 - 100.0 ng/mL11/27/2024 7:10 AM [facility]YSpecimen (Source)Anatomical Location / LateralityCollection Method / VolumeCollection TimeReceived TimeBloodVenous blood / UnknownVenipuncture / Rxaribf6311/27/2024 5:42 AM EDT1 6:13 AM EDT Narrative [facility] - 11/27/2024 7:10 AM EDT Vitamin D status 25 [place] Vitamin D Deficiency <20 ng/mL Insufficiency ? 20-29 ng/mL Sufficiency ? 30-100 ng/mL Toxicity >100 ng/mL NOTE: A pediatric reference range has not been established by the driller helper of this kit. The [place] [employer] recommends a Vitamin D level of = or >20ng/mL in infants and children. Authorizing ProviderResult TypeResult StatusGonzalo Rolle MDLAB BLOOD ORDERABLESFinal ResultPerforming OrganizationAddressCity/State/ZIP CodePhone Number [facility] [address] [place] [address], * (ABNORMAL) Basic Metabolic Panel (11/27/2024 5:42 AM EDT)ComponentValueRef RangeTest MethodAnalysis TimePerformed AtPathologist PsbiafcuxSCWDFP953979 - 146 mmol/L1 6:50 AM [facility] LABORATORYPOTASSIUM 4.53.5 - 5.0 mmol/L1 6:50 AM [facility] YNCZJAXA81914 - 109 mmol/L1 6:50 AM [facility] LABORATORYCARBON SGPSBVN7450 - 32 mmol/L1 6:50 AM [facility] LABORATORYANION GAP75 - 15 mmol/L1 6:50 AM [facility] LABORATORYBLOOD UREA YPABNZTC64(H)5 - 27 mg/dL11/27/2024 6:50 AM [facility] LABORATORYCREATININE2.53(H)0.40 - 1.00 mg/dL11/27/2024 6:50 AM [facility]ORATORYComment:METHOD TRACEABLE TO IDMS UCFKMLAZAOXZENK133(H)65 - 99 mg/dL11/27/2024 6:50 AM EDT [facility]ORATORYCALCIUM9.18.5 - 10.5 mg/dL11/27/2024 6:50 AM [facility]OR[facility]ORYEGFR Non-Race Misoriipg31(L)>=60 ml/min/1.73sq.m1 6:50 AM [facility] Comment: Reported eGFR is based on the CKD-EPI 2020 equation that does not use a race coefficient. Specimen (Source)Anatomical Location / LateralityCollection Method / Volume Collection TimeReceived TimeBloodVenous blood / UnknownVenipuncture / Unknown 11/27/2024 5:42 AM EDT1 6:13 AM EDT Narrative Authorizing ProviderResult TypeResult StatusHib H Ismail MDLAB BLOOD ORDERABLESFinal ResultPerforming OrganizationAddressCity/State/ZIP CodePhone Number [facility] [address] [place] [address], [place] [phone] * (ABNORMAL) Bedside Glucose *Place/Obtain serum glucose if >500 per glucometer. (11/26/2024 9:20 PM EDT)ComponentValueRef RangeTest MethodAnalysis Time Performed AtPathologist SignatureBedside Glucose (POC)231(H)65 - 99 mg/dL 11/26/2024 9:23 PM [facility]YSpecimen (Source)Anatomical Location / LateralityCollection Method / VolumeCollection TimeReceived Time arterial//08/2025 9:20 PM EDT1 9:23 PM EDT Narrative Authorizing ProviderResult TypeResult StatusHib H Ismail MDPOINT OF CARE TEST ORDERABLESFinal ResultPerforming OrganizationAddressCity/State/ZIP CodePhone Number [facility] [address] [place] [address], [place] * (ABNORMAL) Bedside Glucose *Place/Obtain serum glucose if >500 per glucometer. (11/26/2024 5:46 PM EDT)ComponentValueRef RangeTest MethodAnalysis Time Performed AtPathologist SignatureBedside Glucose (POC)122(H)65 - 99 mg/dL 11/26/2024 8:58 PM [facility]OR[facility]YSpecimen (Source)Anatomical Location / LateralityCollection Method / VolumeCollection TimeReceived Time arterial/nknonjkkl99/08/2025 5:46 PM EDT1 8:58 PM EDT Narrative Authorizing ProviderResult TypeResult StatusHib H Ismail MDPOINT OF CARE TEST ORDERABLESFinal ResultPerforming OrganizationAddressCity/State/ZIP CodePhone Number [facility] [address] [place] [address], [place] * CT hip right without contrast (11/26/2024 5:13 PM EDT)Anatomical Region LateralityModalityMSK, Lower Extremities, Hip, MSK CoveraRightComputed TomographySpecimen (Source)Anatomical Location / LateralityCollection Method / VolumeCollection TimeReceived Time11/26/2024 5:25 PM EDT Narrative 11/26/2024 5:[address] RIGHT HIP WITHOUT CONTRAST COMPARISON: ??Right hip radiographs 12/08/2024 HISTORY: ??hip fracture. TECHNIQUE: ??Unenhanced axial images of the right hip obtained with sagittal and coronal 2-D reformatted images. ??Automatic exposure control (AEC) was utilized. FINDINGS: Fat-containing bilateral inguinal hernias. There is an acute, mildly displaced and mildly impacted subcapital right hip fracture. No evidence for an underlying lesion. Mild anterior apex angulation at the fracture site. No dislocation. No discrete hematoma in the visualized soft tissues. Degenerative changes of the hips and SI joints. IMPRESSION: * ??Acute subcapital right hip fracture. All CT scans at this facility use dose modulation, iterative reconstruction, and/or weight based dosing when appropriate to reduce radiation dose to as low as reasonably achievable. Finalized by Andrea Jimenez MD on 11/26/2024 5:29 PM Procedure Note Andrea Jimenez MD - 11/26/2024 CT RIGHT HIP WITHOUT CONTRAST COMPARISON: Right hip radiographs 12/08/2024 HISTORY: hip fracture. TECHNIQUE: Unenhanced axial images of the right hip obtained withsagittal and coronal 2-D reformatted images. Automatic exposure control(AEC) was utilized. FINDINGS: Fat-containing bilateral inguinal hernias. There is an acute, mildlydisplaced and mildly impacted subcapital right hip fracture. No evidencefor an underlying lesion. Mild anterior apex angulation at the fracturesite. No dislocation. No discrete hematoma in the visualized softtissues. Degenerative changes of the hips and SI joints. IMPRESSION: * Acute subcapital right hip fracture. All CT scans at this facility use dose modulation, iterativereconstruction, and/or weight based dosing when appropriate to reduceradiation dose to as low as reasonably achievable. Finalized by Andrea Jimenez MD on 11/26/2024 5:29 PM Authorizing ProviderResult TypeResult Carolina Green DOIMG CT ORDERABLESFinal Result * Urea random, urine (11/26/2024 4:45 PM EDT)ComponentValueRef RangeTest Method Analysis TimePerformed AtPathologist SignatureURINE UREA NITROGEN,PTTACB940 mg/dL11/26/2024 6:38 PM [facility]YSpecimen (Source)Anatomical Location / LateralityCollection Method / VolumeCollection TimeReceived TimeUrineUrine / Qfjdcfm9911/26/2024 4:45 PM EDT1 5:16 PM EDT Narrative Authorizing ProviderResult TypeResult Cheryl CURRIE ORDERABLES Final ResultPerforming OrganizationAddressCity/State/ZIP CodePhone Number [facility] [address] [place] [address], * Urine Creatinine,Rdm (11/26/2024 4:45 PM EDT)ComponentValueRef RangeTest MethodAnalysis TimePerformed AtPathologist SignatureURINE CREATININE,RDM72.60 mg/dL11/26/2024 6:38 PM [facility]YSpecimen (Source)Anatomical Location / LateralityCollection Method / VolumeCollection TimeReceived TimeUrineUrine / Txfxqok2311/26/2024 4:45 PM EDT1 5:16 PM EDT Narrative Authorizing ProviderResult TypeResult Cheryl CURRIE ORDERABLES Final ResultPerforming OrganizationAddressCity/State/ZIP CodePhone Number [facility] [address] [place] [address], * Sodium, urine, random (11/26/2024 4:45 PM EDT)ComponentValueRef RangeTest MethodAnalysis TimePerformed AtPathologist SignatureURINE SODIUM,JLXXCJ07 mmol/L1 6:38 PM [facility]YSpecimen (Source)Anatomical Location / LateralityCollection Method / VolumeCollection TimeReceived TimeUrineUrine / Xvqiizs7511/26/2024 4:45 PM EDT1 5:16 PM EDT Narrative Authorizing ProviderResult TypeResult StatusGonzalo CURRIE ORDERABLES Final ResultPerforming OrganizationAddressCity/State/ZIP CodePhone Number [facility] [address] [place] [address], * (ABNORMAL) Urinalysis (11/26/2024 4:45 PM EDT)ComponentValueRef RangeTest MethodAnalysis TimePerformed AtPathologist SignatureCOLORYellowYellow 11/26/2024 6:33 PM [facility] LABORATORYTURBIDITYHazy(A)Clear 11/26/2024 6:33 PM [facility]ORATORYSPECIFIC GRAVITY1.010 1.003 - 1.4215311/26/2024 6:33 PM [facility] LABORATORYNITRITE NjhweqokDwrcpupo39/08/2025 6:33 PM [facility] PH,URINE6.55.0 - 8.510 6:33 PM [facility] LEUKOCYTE ESTERASESmall(A)Qvcxeicz76/08/2025 6:33 PM [facility]ORATORYComment:High Concentrations of Glucose May Decrease the Reactivity of the Dipstick Leukocyte Test Pad.XYBCLEF84 mg/dL(A)Negative 11/26/2024 6:33 PM [facility] LABORATORYKETONES (URINE) WfkqrrsqPcsgfmnb63/08/2025 6:33 PM [facility] UROBILINOGEN<1.1 eu/dL<1.1 eu/dL11/26/2024 6:33 PM [facility] LABORATORYBILIRUBIN (URINE)ZtqiubhtZshehhzr76/08/2025 6:33 PM [facility] LABORATORYBLOOD/NENDprrpmxeUgwmffdt47/08/2025 6:33 PM EDT [facility]ORYR.B.CELLS<10 - 510 6:33 PM EDT [facility]ORYW.B.CELLS8(H)0 - 510 6:33 PM EDT [facility]ORYGLUCOSE (URINE)>1000 mg/dL(A)Negative 11/26/2024 6:33 PM [facility]YSpecimen (Source) Anatomical Location / LateralityCollection Method / VolumeCollection Time Received TimeUrineUrine / Nnqymps0511/26/2024 4:45 PM EDT1 5:16 PM EDT Narrative [facility] - 11/26/2024 6:33 PM EDT Urine received without preservative - delays in transport may affect results. Interpret with caution and clinical correlation is recommended. Authorizing ProviderResult TypeResult StatusGonzalo CURRIE ORDERABLES Final ResultPerforming OrganizationAddressCity/State/ZIP CodePhone Number [facility] [address] [place] [address], * ECG 12 lead (11/26/2024 4:39 PM EDT)Specimen (Source)Anatomical Location / LateralityCollection Method / VolumeCollection TimeReceived Time11/26/2024 4:39 PM EDT Narrative [facility] - 11/28/2024 5:40 PM EDT Authorizing ProviderResult TypeResult StatusRuwhitley GRIFFIN ORDERABLES Final ResultPerforming OrganizationAddressCity/State/ZIP CodePhone Number [facility] * (ABNORMAL) B-type natriuretic peptide (11/26/2024 4:34 PM EDT)ComponentValue Ref RangeTest MethodAnalysis TimePerformed AtPathologist YljmxddczVFM666(H) <=100 pg/mL11/26/2024 6:10 PM [facility]YSpecimen (Source)Anatomical Location / LateralityCollection Method / VolumeCollection TimeReceived TimeBloodVenous blood / Ytekizp2111/26/2024 4:34 PM EDT1 4:49 PM EDT Narrative Authorizing ProviderResult TypeResult StatusGonzalo QUICK BLOOD ORDERABLESFinal ResultPerforming OrganizationAddressCity/State/ZIP CodePhone Number [facility] [address] [place] [address], * CK Total (11/26/2024 4:34 PM EDT)ComponentValueRef RangeTest MethodAnalysis TimePerformed AtPathologist CdmdsgqtgWHZ3963 - 170 U/L1 5:46 PM EDT [facility]YSpecimen (Source)Anatomical Location / LateralityCollection Method / VolumeCollection TimeReceived TimeBloodVenous blood / Mdvrnmw2211/26/2024 4:34 PM EDT1 4:49 PM EDT Narrative Authorizing ProviderResult TypeResult StatusHib H Sariah NELAB BLOOD ORDERABLESFinal ResultPerforming OrganizationAddressCity/State/ZIP CodePhone Number [facility] [address] [place] [address], * Vitamin B12 (11/26/2024 4:34 PM EDT)ComponentValueRef RangeTest MethodAnalysis TimePerformed AtPathologist SignatureVITAMIN [id number] - 914 pg/mL11/26/2024 5:46 PM [facility]YSpecimen (Source)Anatomical Location / LateralityCollection Method / VolumeCollection TimeReceived Time BloodVenous blood / Qbmyjhb5511/26/2024 4:34 PM EDT1 4:49 PM EDT Narrative Authorizing ProviderResult TypeResult StatusHib H Issidil NELAB BLOOD ORDERABLESFinal ResultPerforming OrganizationAddressCity/State/ZIP CodePhone Number [facility] [address] [place] [address], * Reticulocytes (11/26/2024 4:34 PM EDT)ComponentValueRef RangeTest Method Analysis TimePerformed AtPathologist SignatureReticulocyte Count1.50.4 - 2.2 % 11/26/2024 4:56 PM [facility]YSpecimen (Source) Anatomical Location / LateralityCollection Method / VolumeCollection Time Received TimeBloodVenous blood / Ujnrlbd3811/26/2024 4:34 PM EDT1 4:49 PM EDT Narrative Authorizing ProviderResult TypeResult StatusHibah Gely Menashireen MDLAB BLOOD ORDERABLESFinal ResultPerforming OrganizationAddressCity/State/ZIP CodePhone Number [facility] [address] [place] [address], * Iron and TIBC (11/26/2024 4:34 PM EDT)ComponentValueRef RangeTest Method Analysis TimePerformed AtPathologist TfpktffuoETTM3026 - 170 ug/dL11/26/2024 5:46 PM [facility]ORATORYComment:R-Specimen moderately hemolyzed, results mzmpxjtesLSTADESTSPA805810 - 336 mg/dL11/26/2024 5:46 PM [facility] LABORATORYIRON KVNXHEO058696 - 425 ug/dL11/26/2024 5:46 PM [facility] LABORATORYIRON HUJEDVTNBL7050 - 50 % CFNABUXYDS90/08/2025 5:46 PM [facility]ATORYSpecimen (Source)Anatomical Location / LateralityCollection Method / VolumeCollection TimeReceived TimeBloodVenous blood / Zktoqdn7911/26/2024 4:34 PM EDT1 4:49 PM EDT Narrative Authorizing ProviderResult TypeResult StatusHibah Gely Sariah MDLAB BLOOD ORDERABLESFinal ResultPerforming OrganizationAddressCity/State/ZIP CodePhone Number [facility] [address] [place] [address], * Folate (11/26/2024 4:34 PM EDT)ComponentValueRef RangeTest MethodAnalysis Time Performed AtPathologist SignatureFOLIC ACID>25.0>5.8 ng/mL11/26/2024 5:46 PM [facility]ATORYSpecimen (Source)Anatomical Location / LateralityCollection Method / VolumeCollection TimeReceived TimeBloodVenous blood / Xyamcfp4511/26/2024 4:34 PM EDT1 4:49 PM EDT Narrative Authorizing ProviderResult TypeResult StatusHibah H Ismail Android App Review Source BLOOD ORDERABLESFinal ResultPerforming OrganizationAddressCity/State/ZIP CodePhone Number [facility] [address] [place] [address], * Ferritin (11/26/2024 4:34 PM EDT)ComponentValueRef RangeTest MethodAnalysis TimePerformed AtPathologist YlucnkkhyHVWUITSA8054 - 307 ng/mL11/26/2024 5:46 PM [facility]YSpecimen (Source)Anatomical Location / LateralityCollection Method / VolumeCollection TimeReceived TimeBloodVenous blood / Ttptuyd2011/26/2024 4:34 PM EDT1 4:49 PM EDT Narrative Authorizing ProviderResult TypeResult StatusDeaconess Incarnate Word Health Systemshaheen Rolle Android App Review Source BLOOD ORDERABLESFinal ResultPerforming OrganizationAddressCity/State/ZIP CodePhone Number [facility] [address] [place] [address], * (ABNORMAL) Vitamin D 25 hydroxy (11/26/2024 4:34 PM EDT)ComponentValueRef RangeTest MethodAnalysis TimePerformed AtPathologist SignatureVITAMIN D 25 HYD TOT27.1(L)30.0 - 100.0 ng/mL11/26/2024 5:46 PM [facility]YSpecimen (Source)Anatomical Location / LateralityCollection Method / VolumeCollection TimeReceived TimeBloodVenous blood / Oyjwcuj4911/26/2024 4:34 PM EDT1 4:49 PM EDT Narrative [facility] - 11/26/2024 5:46 PM EDT Vitamin D status 25 [place] Vitamin D Deficiency <20 ng/mL Insufficiency ? 20-29 ng/mL Sufficiency ? 30-100 ng/mL Toxicity >100 ng/mL NOTE: A pediatric reference range has not been established by the driller helper of this kit. The [place] [employer] recommends a Vitamin D level of = or >20ng/mL in infants and children. Authorizing ProviderResult TypeResult StatusGian Green DOLAB BLOOD ORDERABLESFinal ResultPerforming OrganizationAddressCity/State/ZIP CodePhone Number [facility] [address] [place] [address], * Type and screen(includes indirect vikas) (11/26/2024 4:34 PM EDT)Component ValueRef RangeTest MethodAnalysis TimePerformed AtPathologist SignatureABOA 11/26/2024 5:41 PM [facility] DASYKAQRDBRVGpiksjuf57/08/2025 5:41 PM [facility] LABORATORYAntibody OohpklCnvrorih14/08/2025 5:41 PM EDT [facility] LABORATORYSpecimen (Source)Anatomical Location / Laterality Collection Method / VolumeCollection TimeReceived TimeBloodVenous blood / Ybnuvzn9811/26/2024 4:34 PM EDT1 5:04 PM EDT Narrative Authorizing ProviderResult TypeResult StatusGian Green DOBLOOD BANK TEST ORDERABLESEdited Result - FinalPerforming OrganizationAddressCity/State/ZIP Code Phone Number [facility] [address] [place] [address], [facility] [address] [place] [address], * Prealbumin (11/26/2024 4:34 PM EDT)ComponentValueRef RangeTest MethodAnalysis TimePerformed AtPathologist EuprzuqgwRDSMUTAHNG6603 - 45 mg/dL11/26/2024 5:46 PM [facility]ATORYSpecimen (Source)Anatomical Location / LateralityCollection Method / VolumeCollection TimeReceived TimeBloodVenous blood / Qnyczfx3111/26/2024 4:34 PM EDT1 4:49 PM EDT Narrative Authorizing ProviderResult TypeResult StatusRuwhitley Green DOLAB BLOOD ORDERABLESFinal ResultPerforming OrganizationAddressCity/State/ZIP CodePhone Number [facility] [address] [place] [address], * (ABNORMAL) Basic Metabolic Panel (11/26/2024 4:34 PM EDT)ComponentValueRef RangeTest MethodAnalysis TimePerformed AtPathologist YdrituijrVWVAZT375432 - 146 mmol/L1 5:46 PM [facility] LABORATORYPOTASSIUM 4.33.5 - 5.0 mmol/L1 5:46 PM [facility] Comment:R-Specimen moderately hemolyzed, results fyfloqqsuFSCRLTDQ36021 - 109 mmol/L1 5:46 PM [facility] LABORATORYCARBON DIOXIDE 2722 - 32 mmol/L1 5:46 PM [facility] LABORATORYANION DIB231 - 15 mmol/L1 5:46 PM [facility] BLOOD UREA IXZNVRSS25(H)5 - 27 mg/dL11/26/2024 5:46 PM [facility] LABORATORYCREATININE2.57(H)0.40 - 1.00 mg/dL11/26/2024 5:46 PM EDT [facility]ORATORYComment:METHOD TRACEABLE TO IDMS STANDARD AOIRLUQ762(H)65 - 99 mg/dL11/26/2024 5:46 PM [facility] LABORATORYCALCIUM9.38.5 - 10.5 mg/dL11/26/2024 5:46 PM [facility]ORYEGFR Non-Race Wiihksvdv20(L)>=60 ml/min/1.73sq.m1 5:46 PM [facility]ORATORYComment: Reported eGFR is based on the CKD-EPI 2020 equation that does not use a race coefficient. Specimen (Source)Anatomical Location / LateralityCollection Method / Volume Collection TimeReceived TimeBloodVenous blood / Zlqaold6811/26/2024 4:34 PM EDT 11/26/2024 4:49 PM EDT Narrative Authorizing ProviderResult TypeResult StatusRuwhitley ROE BLOOD ORDERABLESFinal ResultPerforming OrganizationAddressCity/State/ZIP CodePhone Number [facility] [address] [place] [address], * (ABNORMAL) CBC auto differential (11/26/2024 4:34 PM EDT)ComponentValueRef RangeTest MethodAnalysis TimePerformed AtPathologist IwjstcqiwBCO88.4(H)4 - 11 x10E9/L1 4:56 PM [facility] LABORATORYRBC Count3.62 (L)3.8 - 5.2 X10E12/L1 4:56 PM [facility] Bcwmwdwsil97.811.7 - 15.5 g/dL11/26/2024 4:56 PM [facility] BWDQKICPJRIenuglvlwy33.6(L)35 - 47 %11/26/2024 4:56 PM [facility] UTZWKVDPEDGJQ2471 - 100 fL11/26/2024 4:56 PM [facility] MBQYCODLPUMYK32.527 - 34 pg11/26/2024 4:56 PM [facility] OXYYHUNPYSWMJG54.032 - 36 g/dL11/26/2024 4:56 PM [facility] OYFEXESSDGPBS10.611.5 - 15 %11/26/2024 4:56 PM [facility] LABORATORYPlatelet Cuqlx308971 - 450 X10E9/L1 4:56 PM EDT [facility]ORATORYMPV9.17 - 12 fL11/26/2024 4:56 PM [facility] LABORATORYNeutrophils %84.6%11/26/2024 4:56 PM [facility] LABORATORYLymphocytes %6.8%11/26/2024 4:56 PM [facility]ORYMonocytes %7.7%11/26/2024 4:56 PM [facility] LAB[facility]ORYEosinophils %0.6%11/26/2024 4:56 PM [facility] LAB[facility]ATORYBasophils %0.3%11/26/2024 4:56 PM [facility] LABORATORYNeutrophils Absolute (A)10.5(H)1.5 - 6.6 10*3/uL 11/26/2024 4:56 PM [facility] LABORATORYLymphocytes Absolute 0.8(L)1.0 - 3.5 10*3/uL11/26/2024 4:56 PM [facility] LAB[facility]ATORYMonocytes Absolute1.0(H)0.0 - 0.9 10*3/uL11/26/2024 4:56 PM EDT [facility]ORYEosinophils Absolute0.10.0 - 0.4 10*3/uL 11/26/2024 4:56 PM [facility] LABORATORYBasophils Absolute0.0 0.0 - 0.2 10*3/uL11/26/2024 4:56 PM [facility] Differential TypeAUTOMATED DUGVQJUAWCXT63/08/2025 4:56 PM [facility] LABORATORYSpecimen (Source)Anatomical Location / LateralityCollection Method / VolumeCollection TimeReceived TimeBloodVenous blood / Unknown 11/26/2024 4:34 PM EDT1 4:49 PM EDT Narrative Authorizing ProviderResult TypeResult StatusRuwhitley ROE BLOOD ORDERABLESFinal ResultPerforming OrganizationAddressCity/State/ZIP CodePhone Number [facility] [address] [place] [address], documented in this encounter Visit Diagnoses Diagnosis Closed fracture of right hip, initial encounter ([facility]) Type 2 diabetes mellitus with stage 3b chronic kidney disease, with long-term current use of insulin ([facility]) Closed fracture of right hip, [facility] [facility]) documented in this encounter Admitting Diagnoses Diagnosis Closed fracture of right hip, initial encounter ([facility]) documented in this encounter Administered Medications Medication OrderMAR ActionAction DateDoseRateSite acetaminophen (TYLENOL EXTRA STRENGTH) tablet 1,000 mg 1,000 mg, oral, Once, On Sun11/26/24 at 1619, For 1 dose Given11/26/2024 4:44 PM EDT1,000 mg acetaminophen (TYLENOL EXTRA STRENGTH) tablet 1,000 mg 1,000 mg, oral, Every 8 hours, First dose on Daria 11/27/24 at 0100, Recommend minimized narcotics, while still providing adequate analgesia, to minimize risk of sedation and delirium. The oral route ispreferred for patients tolerating oral intake without nausea and vomiting. Use IV pain medications if the oral route is ineffective for symptom control, or if patient unable to take medications orally. Given12/01/2024 12:20 PM EDT1,000 qtOfyns3012/01/2024 3:14 AM EDT1,000 mgGiven 11/30/2024 9:04 PM EDT1,000 mg ALPRAZolam (XANAX) tablet 0.25 mg 0.25 mg, oral, Once as needed, sleep, Starting on Sun11/26/24 at 2249, For 1 dose, Look-alike/sound-alike medication - verify indication for use. Given11/26/2024 11:17 PM EDT0.25 mg ALPRAZolam (XANAX) tablet 0.25 mg 0.25 mg, oral, Once as needed, sleep, Starting on Daria 11/27/24 at 2202, For 1 dose, Look-alike/sound-alike medication - verify indication for use. Given11/27/2024 10:21 PM EDT0.25 mg ALPRAZolam (XANAX) tablet 0.25 mg 0.25 mg, oral, Once as needed, sleep, Starting on Sun11/28/24 at 2148, For 1 dose, Look-alike/sound-alike medication - verify indication for use. Given11/29/2024 9:59 PM EDT0.25 mg amLODIPine (NORVASC) tablet 5 mg 5 mg, oral, Daily, First dose on Sun11/30/24 at 1015, Hold for SBP less then 120. Look-alike/sound-alike medication - verify indication for use. Avoid grapefruit juice. Given11/30/2024 10:22 AM EDT5 mg amLODIPine (NORVASC) tablet 5 mg 5 mg, oral, Every 12 hours, First dose (after last modification) on Sun11/30/24 at 1900, Hold for SBP less then 120. Look-alike/sound-alike medication - verify indication for use. Avoid grapefruit juice. Given12/01/2024 6:28 AM EDT5 veYmair5611/30/2024 9:04 PM EDT5 mg aprepitant (EMEND) capsule 40 mg 40 mg, oral, Once, On Daria 11/27/24 at 1045, For 1 dose, Pre-op Given11/27/2024 10:48 AM EDT40 mg atorvastatin (LIPITOR) tablet 80 mg 80 mg, oral, Daily, First dose on Daria 11/27/24 at 1615, Look-alike/sound-alike medication - verify indication for use. Given12/01/2024 9:29 AM EDT80 jhDguop1211/30/2024 9:47 AM EDT80 tpOritp0511/29/2024 9:27 AM EDT80 mg buPROPion XL (WELLBUTRIN XL) 24 hr tablet 150 mg 150 mg, oral, Daily, First dose on Daria 11/27/24 at 1615, Look-alike/sound-alike medication - verify indication for use. Do not crush or chew. Given12/01/2024 9:29 AM YPR831 bfMbgvs5911/30/2024 9:45 AM [id number] mgGiven 11/29/2024 9:26 AM [id number] mg calcium citrate (CALCITRATE) tablet 400 mg 400 mg, oral, 3 times daily with meals, First dose on Daria 11/27/24 at 1700, PACU & Post-op Given12/01/2024 12:20 PM OEI534 mgUrkos8112/01/2024 9:29 AM RQV484 mgGiven 11/30/2024 5:10 PM IYN021 mg carvediloL (COREG) tablet 12.5 mg 12.5 mg, oral, 2 times daily with meals, First dose on Daria 11/27/24 at 1700, Hold for systolic bloodpressure less than 100 and heart rate less than 60 Give with meal or snack. Look-alike/sound-alike medication - verify indication for use. Given11/30/2024 5:10 PM EDT12.5 axNesgx4611/30/2024 8:44 AM EDT12.5 mgGiven 11/29/2024 4:05 PM EDT12.5 mg carvediloL (COREG) tablet 25 mg 25 mg, oral, 2 times daily with meals, First dose (after last modification) on 12/01/24 at 0800, Hold for systolic blood pressure less than 100 and heart rate less than 60 Give with meal or snack. Look-alike/sound-alike medication - verify indication for use. Given12/01/2024 9:29 AM EDT25 mg ceFAZolin (ANCEF) 2,000 mg in sodium chloride 0.9 % 50 mL IVPB W/ADAPTER 2,000 mg, intravenous, at 100 mL/hr, Administer over 30 Minutes, Every 8 hours, First dose on Daria 11/27/24 at 2030, For 2 doses, PACU & Post-op, Pharmacy to adjust per renal function; Start 8 hours after pre-op dose for total of 3 doses including pre-op dose. Infuse all doses within 24 hours of initial dose. For patient less than 120 kg. For Vial-2-Bag: Attach bag and vial to adapter - Use immediately after activating; dissolve drug prior to administration., Indication: Surgical prophylaxis New Bag11/28/2024 4:16 AM EDT2,000 mg100 mL/hrNew Bag11/27/2024 8:18 PM EDT2,000 mg100 mL/hr ceFUROxime (CEFTIN) tablet 250 mg 250 mg, oral, Every 12 hours scheduled, First dose (after last modification) on Sun11/30/24 at 0900, For 12 doses, Indication: Other, Specify: perisurgical prophylaxis Given12/01/2024 9:30 AM BCU192 sfQrgxs1011/30/2024 10:00 PM [id number] mgGiven 11/30/2024 9:42 AM KTH269 mg ceFUROxime (CEFTIN) tablet 500 mg 500 mg, oral, Every 12 hours scheduled, First dose on Sun11/28/24 at 2100, For 7 days, Indication:Other, Specify: perisurgical prophylaxis Given11/29/2024 9:39 AM VSN075 iqIoydv1411/28/2024 9:33 PM AND385 mg cholecalciferol (vitamin D3) tablet 2,000 Units 2,000 Units, oral, Daily, First dose on Daria 11/27/24 at 1515, PACU & Post-op Given12/01/2024 9:29 AM EDT2,000 LtwwgEzvgw76/12/2025 9:46 AM EDT2,000 Units Given11/29/2024 9:27 AM EDT2,000 Units dextrose (GLUTOSE) 40 % gel 15 g 15 g, oral, As needed, low blood sugar, blood glucose less than 70 mg/dL, Starting on Sun11/26/24 at 1741, If patient conscious and taking PO. If blood glucose is not greater than 70 mg/dL after initial treatment, repeat treatment. dextrose (GLUTOSE) 40 % gel 15 g 15 g, oral, As needed, low blood sugar, blood glucose less than 70 mg/dL, Starting on Sun11/28/24 at 1802, If patient conscious and taking PO. If blood glucose is not greater than 70 mg/dL after initial treatment, repeat treatment. dextrose 5 % (D5W) infusion 100 mL/hr, intravenous, Continuous PRN, blood glucose less than 70 mg/dL, Starting on Sun11/26/24 at 1741, For 365 days, Use immediately following dextrose 50% or glucagon treatment for patients who are unconscious or NPO. Contact prescriber for additional orders. If blood glucose is not greater than 70 mg/dL after initial treatment, repeat treatment. dextrose 5 % (D5W) infusion 100 mL/hr, intravenous, Continuous PRN, blood glucose less than 70 mg/dL, Starting on Sun11/28/24 at 1802, For 365 days, Use immediately following dextrose 50% or glucagon treatment for patients whoare unconscious or NPO. Contact prescriber for additional orders. If blood glucose is not greater than 70 mg/dL after initial treatment, repeat treatment. dextrose 50 % in water (D50W) 50% solution 25 mL 25 mL, intravenous, As needed, low blood sugar, blood glucose less than 70 mg/dL and unconscious orNPO with IV access, Starting on Sun11/26/24 at 1741, Push over 1-3 minutes STAT. If conscious and not NPO, immediately follow with meal tray or high protein (7 grams) snack if tray not available. If NPO, initiate 5% dextrose in water at 100 mL/hr and contact prescriber for additional orders. If blood glucose is not greater than 70 mg/dL after initial treatment, repeat treatment. VESICANT (RED) Warning: HYPERTONIC solution. dextrose 50 % in water (D50W) 50% solution 25 mL 25 mL, intravenous, As needed, low blood sugar, blood glucose less than 70 mg/dL and unconscious orNPO with IV access, Starting on Sun11/28/24 at 1802, Push over 1-3 minutes STAT. If conscious and not NPO, immediately follow with meal tray or high protein (7 grams) snack if tray not available. IfNPO, initiate 5% dextrose in water at 100 mL/hr and contact prescriber for additional orders. If blood glucose is not greater than 70 mg/dL after initial treatment, repeat treatment. VESICANT (RED) Warning: HYPERTONIC solution. ergocalciferol (DRISDOL) capsule 50,000 Units 50,000 Units, oral, Weekly, First dose on Sun11/28/24 at 0900, PACU & Post-op Given11/28/2024 8:33 AM EDT50,000 Units fentaNYL (SUBLIMAZE) injection 50 mcg 50 mcg, intravenous, Once, On Sun11/26/24 at 1637, For 1 dose, For IVP, must be given slow IV Push over 1 to 2 minutes. Look-alike/sound-alike medication - verify indication for use. Given11/26/2024 4:43 PM EDT50 mcg fentaNYL (SUBLIMAZE) injection 50 mcg 50 mcg, intravenous, Every 5 min PRN, Pain Scale 6-10, Starting on Daria 11/27/24 at 1447, PACU (only), Up to a maximum dose of 150 mcg. Look-alike/sound-alike medication - verify indication for use. Given11/27/2024 3:45 PM EDT50 euqKrpvm09/09/2025 3:40 PM EDT50 mcg glucagon HCL injection 1 mg 1 mg, intramuscular, As needed, low blood sugar, blood glucose less than 70 mg/dL and unconscious or NPO without IV access., Starting on Sun11/26/24 at 1741, If conscious and not NPO, immediately follow with meal tray or high protein (7Grams) snack if tray not available. If NPO, initiate IV 5% Dextr ose/Water at 100 mL/hr and contact prescriber for additional orders. If blood glucose is not greater than 70 mg/dL after initial treatment, repeat treatment. glucagon HCL injection 1 mg 1 mg, intramuscular, As needed, low blood sugar, blood glucose less than 70 mg/dL and unconscious or NPO without IV access., Starting on Sun11/28/24 at 1802, If conscious and not NPO, immediately follow with meal tray or high protein (7Grams) snack if tray not available. If NPO, initiate IV 5% Dext hubert/Water at 100 mL/hr and contact prescriber for additional orders. If blood glucose is not greater than 70 mg/dL after initial treatment, repeat treatment. heparin (porcine) injection 5,000 Units 5,000 Units, subcutaneous, Every 8 hours scheduled, First dose on Sun11/28/24 at 0600, Look-alike/sound-alike medication - verify indication for use. Observe for bleeding. Given12/01/2024 12:20 PM EDT5,000 UnitsAbdominal HgwifoVjoom00/13/2025 6:28 AM EDT5,000 UnitsAbdominal SbhwxtAyuew98/12/2025 9:08 PM EDT5,000 UnitsAbdominal Tissue hydrALAZINE (APRESOLINE) injection 10 mg 10 mg, intravenous, Once, On Sun11/26/24 at 2015, For 1 dose, For systolic blood pressure greater than 180 mmHg Look-alike/sound-alike medication - verify indication for use. Administer IV doses as aslow IV push; maximum rate: 5 mg/minute. Given11/26/2024 8:18 PM EDT10 mg hydrALAZINE (APRESOLINE) injection 10 mg 10 mg, intravenous, Once, On Sun11/30/24 at 0430, For 1 dose, For systolic blood pressure greater than 180 mmHg Look-alike/sound-alike medication - verify indication for use. Administer IV doses as a slow IV push; maximum rate: 5 mg/minute. Given11/30/2024 4:35 AM EDT10 mg HYDROmorphone (DILAUDID) injection 0.25 mg 0.25 mg, intravenous, Every 2 hour PRN, pain unresponsive to oral analgesic medication, breakthrough pain, or patients who are unable to take PO, Starting on Sun11/26/24 at 1638, If IV push, administer over over 2 to 3 minutes. Look-alike/sound-alike medication - verify indication for use. Given11/26/2024 7:31 PM EDT0.25 mg insulin lispro (HumaLOG) injection 1-4 Units 1-4 Units, subcutaneous, Nightly, First dose on Sun11/26/24 at 2200, Bedtime hyperglycemia dosing. For blood glucose 201-250 mg/dL, give 1 unit. For blood glucose 251-300 mg/dL, give 2 units. For blood glucose 301-350 mg/dL, give 3 units. For blood glucose 351-400 mg/dL, give 4 units. Give even if NPO or meals skipped. Do NOT give more often than every 4 hours when NPO. Notify prescriber if bloodglucose greater than 400 mg/dL. Look-alike/sound-alike medication - verify indication for use. Prime with 2 units of insulin prior to administration. Prandial/supplemental Insulin. Pre-filled pens stable 28 days at room temperature. Insulin lispro should be administered within 15 minutes before or immediately after a meal. Given11/30/2024 9:10 PM EDT1 UnitsAbdominal ZokgavZyzgb46/11/2025 9:52 PM EDT1 UnitsAbdominal YshhruZivuv25/10/2025 9:34 PM EDT1 UnitsAbdominal Tissue insulin lispro (HumaLOG) injection 1-5 Units 1-5 Units, subcutaneous, 3 times daily with meals, First dose on Sun11/26/24 at 1742, Daytime hyperglycemia dosing. For blood glucose 151-200 mg/dL, give 1 unit. For blood glucose 201-250 mg/dL, give2 units. For blood glucose 251-300 mg/dL, give 3 units. For blood glucose 301-350 mg/dL, give 4 units. For blood glucose 351-400 mg/dL, give 5 units. Give even if NPO or meals skipped. Do NOT give more often than every 4 hours when NPO. Notify prescriber if blood glucose greater than 400 mg/dL. Look-alike/sound-alike medication - verify indication for use. Prime with 2 units of insulin prior to administration. Prandial/supplemental Insulin. Pre-filled pens stable 28 days at room temperature. Insulin lispro should be administered within 15 minutes before or immediately after a meal. Given11/28/2024 5:30 PM EDT3 UnitsAbdominal NepvpyQoutx52/10/2025 2:00 PM EDT2 UnitsAbdominal QjntybQcbzk81/10/2025 8:27 AM EDT2 UnitsAbdominal Tissue insulin lispro (HumaLOG) injection 2-10 Units 2-10 Units, subcutaneous, 3 times daily with meals, First dose on Sun11/28/24 at 1815, Daytime hyperglycemia dosing. For blood glucose 151-200 mg/dL, give 2 units. For blood glucose 201-250 mg/dL, give 4 units. For blood glucose 251-300 mg/dL, give 6 units. For blood glucose 301-350 mg/dL, give 8 units. For blood glucose 351-400 mg/dL, give 10 units. Give even if NPO or meals skipped. Do NOT give more often then every 4 hours when NPO. Notify prescriber if blood glucose greater than 400 mg/dL.Look-alike/sound-alike medication - verify indication for use. Prime with 2 units of insulin prior to administration. Prandial/supplemental Insulin. Pre-filled pens stable 28 days at room temperature. Insulin lispro should be administered within 15 minutes before or immediately after a meal. Given12/01/2024 12:21 PM EDT6 UnitsAbdominal WffwugKgsfk24/13/2025 9:32 AM EDT2 UnitsAbdominal MknhkdKgvde12/12/2025 5:15 PM EDT6 UnitsAbdominal Tissue iron sucrose (VENOFER) IVPB 200 mg/110 mL in sodium chloride 0.9% (CMPD premix) 200 mg, intravenous, at 440 mL/hr, Administer over 15 Minutes, Daily, First dose on Sun11/30/24 [id number], For 5 doses, Monitor patient for hypersensitivity reactions for at least 30 minutes after theinfusion. AVOID the use of H1 antihistamines, such as diphenhydramine, as this may worsen hypersensitivity reactions. Have resuscitation equipment and medications available. New Bag12/01/2024 9:39 AM CBH980 mg440 mL/hrNew Bag11/30/2024 10:09 PM OKO859 mg 440 mL/hr isosorbide mononitrate (IMDUR) 24 hr tablet 30 mg 30 mg, oral, Daily, First dose on Sun12/01/24 at 0300, Do not crush or chew. Given12/01/2024 3:14 AM EDT30 mg labetaloL (NORMODYNE,TRANDATE) injection 20 mg 20 mg, intravenous, Once, On Sun11/30/24 at 0300, For 1 dose, For systolic blood pressure greater than 200 mmHg Look-alike/sound-alike medication - verify indication for use. Given11/30/2024 3:05 AM EDT20 mg labetaloL (NORMODYNE,TRANDATE) injection 5 mg 5 mg, intravenous, Once, On 12/01/24 at 0300, For 1 dose, For systolic blood pressure greater than 180 mmHg Look-alike/sound-alike medication - verify indication for use. Given12/01/2024 3:16 AM EDT5 mg montelukast (SINGULAIR) tablet 10 mg 10 mg, oral, Nightly, First dose on Sun11/29/24 at 2200, Look-alike/sound-alike medication - verify indication for use. Given11/30/2024 9:04 PM EDT10 gyNgyld8211/29/2024 9:46 PM EDT10 mg ondansetron (PF) (ZOFRAN) injection 4 mg 4 mg, intravenous, Every 4 hours PRN, nausea, Starting on Sun11/26/24 at 1637, Intravenous administration preferred to be given over 2-5 minutes., Intravenous Specific Administration: IV Push oxyCODONE (ROXICODONE) immediate release tablet 2.5 mg 2.5 mg, oral, Every 4 hours PRN, mild to moderate pain - pain scale 1-6, Starting on Sun11/26/24 [id number], For patients less than 75 years of age. Recommend minimized narcotics, while still providing adequate analgesia, to minimize risk of sedation and delirium. The oral route is preferred for patients tolerating oral intake without nausea and vomiting. Use IV pain medications if the oral route isineffective for symptom control, or if patient unable to take medications orally. Look-alike/sound-alike medication - verify indication for use. Immediate release. Given11/27/2024 10:24 PM EDT2.5 mg oxyCODONE (ROXICODONE) immediate release tablet 5 mg 5 mg, oral, Every 4 hours PRN, severe pain - pain scale 7-10, Starting on Sun11/26/24 at 1638, For patients less than 75 years of age. Recommend minimized narcotics, while still providing adequate analgesia, to minimize risk of sedation and delirium. The oral route is preferred for patients tolerating oral intake without nausea and vomiting. Use IV pain medications if the oral route is ineffective for symptom control, or if patient unable to take medications orally. Look-alike/sound-alike medication - verify indication for use. Immediate release. Given11/30/2024 8:44 AM EDT5 gaAoinj7011/29/2024 7:33 PM EDT5 yfHswcd4911/29/2024 9:39 AM EDT5 mg PARoxetine (PAXIL) tablet 40 mg 40 mg, oral, Daily, First dose on Sun11/30/24 at 0900, Look-alike/sound-alike medication - verify indication for use. Given12/01/2024 9:30 AM EDT40 geGbryz1011/30/2024 9:58 AM EDT40 mg perflutren lipid microspheres (DEFINITY) dilution injection 1.43 mg/10 mL 2 mL, intravenous, As needed, contrast, Starting on Sun11/28/24 at 1007, For 6 hours, Additional Imaging Orders, Dilute 1.3 mL of Definity with 8.7mL of 0.9% NaCl in 10 mL syringe Administer 2 mL perflutren (Definity) contrast if 2 contiguous segments of the LV are not well visualized. May repeat 2 mL dose until LV visualization is accomplished. Procedure total dose not to exceed 10 mL. Given11/28/2024 10:15 AM EDT2 mL polyethylene glycol (GLYCOLAX) packet 17 g 17 g, oral, Daily, First dose on Sun11/29/24 at 1815, Look-alike/sound-alike medication - verify indication for use. Dissolve 1 packet (17 gm) in 8 ounces of water, juice, soda, coffee or tea. Given12/01/2024 9:29 AM EDT17 iZsvxq0311/30/2024 9:58 AM EDT17 g sennosides-docusate sodium (SENOKOT-S) 8.6-50 mg 2 tablet 2 tablet, oral, Nightly, First dose on Sun11/26/24 at 2200 Given11/30/2024 9:04 PM EDT2 ggwotjdSzain34/11/2025 9:45 PM EDT2 tabletsGiven 11/28/2024 9:33 PM EDT2 tablets sodium chloride 0.9 % flush 10 mL 10 mL, intravenous, Once as needed, line care, for use for echo contrast only, Starting on Sun11/28/24 at 1007, For 6 hours, Additional Imaging Orders Given11/28/2024 10:16 AM EDT10 mL sodium chloride 0.9 % infusion 75 mL/hr, intravenous, Continuous, Starting on Sun11/26/24 at 1641 New Bag11/26/2024 10:49 PM EDT75 mL/hr75 mL/hrNew Bag11/26/2024 4:47 PM EDT75 mL/hr75 mL/hr tranexamic acid (LYSTEDA) tablet 1,950 mg 1,950 mg, oral, Once, On Daria 11/27/24 at 1045, For 1 dose, Pre-op Given11/27/2024 10:49 AM EDT1,950 mgdocumented in this encounter Active and Recently Administered Medications Times are shown in EDT.Medication Order/ acetaminophen (TYLENOL EXTRA STRENGTH) tablet 1,000 mg 1,000 mg, oral, Every 8 hours, First dose on Daria 11/27/24 at 0100, Recommend minimized narcotics, while still providing adequate analgesia, to minimize risk of sedation and delirium. The oral route ispreferred for patients tolerating oral intake without nausea and vomiting. Use IV pain medications if the oral route is ineffective for symptom control, or if patient unable to take medications orally. * 0115 (Given - Provider: Maria Luisa Ko RN) * 0927 (Given - Provider: Terra Etienne RN) * 1605 (Given - Provider: Terra Etienne RN) * 0329 (Given - Provider: Jeniffer Wade RN) * 0900 (Not Given - Provider: Mandy Munson RN, Instructor - Reason: Other - Comment: retime for 1100am) * 1308 (Given - Provider: Terra Etienne RN) * 2104 (Given - Provider: Jeniffer Wade RN) * 0314 (Given - Provider: Jeniffer Wade RN) * 1220 (Given - Provider: Kelley Hills, BRIAN) amLODIPine (NORVASC) tablet 5 mg (CANCELED) 5 mg, oral, Daily, First dose on 11/30/24 at 1015, Hold for SBP less then 120. Look-alike/sound-alike medication - verify indication for use. Avoid grapefruit juice. * 1022 (Given - Provider: Terra Etienne RN) amLODIPine (NORVASC) tablet 5 mg 5 mg, oral, Every 12 hours, First dose (after last modification) on 11/30/24 at 1900, Hold for SBP less then 120. Look-alike/sound-alike medication - verify indication for use. Avoid grapefruit juice. * 210 (Given - Provider: Jeniffer Wade RN) * 0628 (Given - Provider: Jeniffer Wade RN) atorvastatin (LIPITOR) tablet 80 mg 80 mg, oral, Daily, First dose on Daria 11/27/24 at 1615, Look-alike/sound-alike medication - verify indication for use. * 0927 (Given - Provider: Terra Etienne RN) * 0947 (Given - Provider: Robina Ayers) * 0929 (Given - Provider: Kelley Hills, BRIAN) buPROPion XL (WELLBUTRIN XL) 24 hr tablet 150 mg 150 mg, oral, Daily, First dose on Daria 11/27/24 at 1615, Look-alike/sound-alike medication - verify indication for use. Do not crush or chew. * 0926 (Given - Provider: Terra Etienne RN) * 0945 (Given - Provider: Robina Ayers) * 0929 (Given - Provider: Kelley Hills, BRIAN) calcium citrate (CALCITRATE) tablet 400 mg 400 mg, oral, 3 times daily with meals, First dose on Daria 11/27/24 at 1700, PACU & Post-op * 0927 (Given - Provider: Terra Etienne RN) * 1407 (Given - Provider: Terra Etienne, BRIAN) * 1605 (Given - Provider: Terra Etienne RN) * 0944 (Given - Provider: Robina Ayers) * 1309 (Given - Provider: Terra Etienne, RN) * 1710 (Given - Provider: Terra Etienne, BRIAN) * 0929 (Given - Provider: Kelley Hills, BRIAN) * 1220 (Given - Provider: Kelley Hills, BRIAN) carvediloL (COREG) tablet 12.5 mg (CANCELED) 12.5 mg, oral, 2 times daily with meals, First dose on Sun11/27/24 at 1700, Hold for systolic bloodpressure less than 100 and heart rate less than 60 Give with meal or snack. Look-alike/sound-alike medication - verify indication for use. * 0927 (Given - Provider: eTrra Etienne RN) * 1605 (Given - Provider: Terra Etienne, RN) * 0844 (Given - Provider: Terra Etienne, BRIAN) * 1710 (Given - Provider: Terra Etienne, BRIAN) carvediloL (COREG) tablet 25 mg 25 mg, oral, 2 times daily with meals, First dose (after last modification) on Sun12/01/24 at 0800, Hold for systolic blood pressure less than 100 and heart rate less than 60 Give with meal or snack. Look-alike/sound-alike medication - verify indication for use. * 0929 (Given - Provider: Kelley Hills RN) ceFUROxime (CEFTIN) tablet 250 mg 250 mg, oral, Every 12 hours scheduled, First dose (after last modification) on Sun11/30/24 at 0900, For 12 doses, Indication: Other, Specify: perisurgical prophylaxis * 0942 (Given - Provider: Robina Ayers) * 2200 (Given - Provider: Jeniffer Wade RN) * 0930 (Given - Provider: Kelley Hills, BRIAN) ceFUROxime (CEFTIN) tablet 500 mg (CANCELED) 500 mg, oral, Every 12 hours scheduled, First dose on Sun11/28/24 at 2100, For 7 days, Indication:Other, Specify: perisurgical prophylaxis * 0939 (Given - Provider: Terra Etienne RN) cholecalciferol (vitamin D3) tablet 2,000 Units 2,000 Units, oral, Daily, First dose on Daria 11/27/24 at 1515, PACU & Post-op * 0927 (Given - Provider: Terra Etienne, RN) * 0946 (Given - Provider: Robina Ayers) * 0929 (Given - Provider: Kelley Hills, RN) heparin (porcine) injection 5,000 Units 5,000 Units, subcutaneous, Every 8 hours scheduled, First dose on Sun11/28/24 at 0600, Look-alike/sound-alike medication - verify indication for use. Observe for bleeding. * 0524 (Given - Provider: Maria Luisa Ko RN) * 1407 (Given - Provider: Terra Etienne, RN) * 2146 (Given - Provider: Jeniffer Wade, RN) * 0637 (Given - Provider: Jeniffer Wade, BRIAN) * 1309 (Given - Provider: Terra Etienne, RN) * 2108 (Given - Provider: Jeniffer Wade, RN) * 0628 (Given - Provider: Jeniffer Wade, BRIAN) * 1220 (Given - Provider: Kelley Hills, BRIAN) hydrALAZINE (APRESOLINE) injection 10 mg (COMPLETED) 10 mg, intravenous, Once, On 11/30/24 at 0430, For 1 dose, For systolic blood pressure greater than 180 mmHg Look-alike/sound-alike medication - verify indication for use. Administer IV doses as a slow IV push; maximum rate: 5 mg/minute. * 0435 (Given - Provider: Jeniffer Wade, BRIAN) insulin lispro (HumaLOG) injection 1-4 Units 1-4 Units, subcutaneous, Nightly, First dose on Sun11/26/24 at 2200, Bedtime hyperglycemia dosing. For blood glucose 201-250 mg/dL, give 1 unit. For blood glucose 251-300 mg/dL, give 2 units. For blood glucose 301-350 mg/dL, give 3 units. For blood glucose 351-400 mg/dL, give 4 units. Give even if NPO or meals skipped. Do NOT give more often than every 4 hours when NPO. Notify prescriber if bloodglucose greater than 400 mg/dL. Look-alike/sound-alike medication - verify indication for use. Prime with 2 units of insulin prior to administration. Prandial/supplemental Insulin. Pre-filled pens stable 28 days at room temperature. Insulin lispro should be administered within 15 minutes before or immediately after a meal. * 2152 (Given - Provider: Jeniffer Wade, BRIAN) * 2110 (Given - Provider: Jeniffer Wade, BRIAN) insulin lispro (HumaLOG) injection 2-10 Units 2-10 Units, subcutaneous, 3 times daily with meals, First dose on Sun11/28/24 at 1815, Daytime hyperglycemia dosing. For blood glucose 151-200 mg/dL, give 2 units. For blood glucose 201-250 mg/dL, give 4 units. For blood glucose 251-300 mg/dL, give 6 units. For blood glucose 301-350 mg/dL, give 8 units. For blood glucose 351-400 mg/dL, give 10 units. Give even if NPO or meals skipped. Do NOT give more often then every 4 hours when NPO. Notify prescriber if blood glucose greater than 400 mg/dL.Look-alike/sound-alike medication - verify indication for use. Prime with 2 units of insulin prior to administration. Prandial/supplemental Insulin. Pre-filled pens stable 28 days at room temperature. Insulin lispro should be administered within 15 minutes before or immediately after a meal. * 0926 (Given - Provider: Terra Etienne, BRIAN) * 1408 (Given - Provider: Terra Etienne, RN) * 1651 (Given - Provider: Terra Etienne, RN) * 0837 (Given - Provider: Terra Etienne, RN) * 1309 (Given - Provider: Terra Etienne, RN) * 1715 (Given - Provider: Terra Etienne, RN) * 0932 (Given - Provider: Kelley Hills, RN) * 1221 (Given - Provider: Kelley Hills, RN) iron sucrose (VENOFER) IVPB 200 mg/110 mL in sodium chloride 0.9% (CMPD premix) 200 mg, intravenous, at 440 mL/hr, Administer over 15 Minutes, Daily, First dose on Sun11/30/24 [id number], For 5 doses, Monitor patient for hypersensitivity reactions for at least 30 minutes after theinfusion. AVOID the use of H1 antihistamines, such as diphenhydramine, as this may worsen hypersensitivity reactions. Have resuscitation equipment and medications available. * 220 (New Bag - Provider: Jeniffer Wade RN) * 2224 (Stop Bag - Provider: Jeniffer Wade RN) * 0939 (New Bag - Provider: Kelley Hills, RN) * 0954 (Stop Bag - Provider: Kelley Hills, RN) isosorbide mononitrate (IMDUR) 24 hr tablet 30 mg 30 mg, oral, Daily, First dose on 12/01/24 at 0300, Do not crush or chew. * 0314 (Given - Provider: Jeniffer Wade RN) labetaloL (NORMODYNE,TRANDATE) injection 20 mg (COMPLETED) 20 mg, intravenous, Once, On 11/30/24 at 0300, For 1 dose, For systolic blood pressure greater than 200 mmHg Look-alike/sound-alike medication - verify indication for use. * 0305 (Given - Provider: Jeniffer Wade RN - Comment: BP:[id number]) labetaloL (NORMODYNE,TRANDATE) injection 5 mg (COMPLETED) 5 mg, intravenous, Once, On 12/01/24 at 0300, For 1 dose, For systolic blood pressure greater than 180 mmHg Look-alike/sound-alike medication - verify indication for use. * 0316 (Given - Provider: Jeniffer Wade RN) montelukast (SINGULAIR) tablet 10 mg 10 mg, oral, Nightly, First dose on 11/29/24 at 2200, Look-alike/sound-alike medication - verify indication for use. * 2146 (Given - Provider: Jeniffer Wade RN) * 2104 (Given - Provider: Jeniffer Wade RN) PARoxetine (PAXIL) tablet 40 mg 40 mg, oral, Daily, First dose on 11/30/24 at 0900, Look-alike/sound-alike medication - verify indication for use. * 0958 (Given - Provider: Mandy Munson RN, Instructor) * 0930 (Given - Provider: Kelley Hills, BRIAN) polyethylene glycol (GLYCOLAX) packet 17 g 17 g, oral, Daily, First dose on 11/29/24 at 1815, Look-alike/sound-alike medication - verify indication for use. Dissolve 1 packet (17 gm) in 8 ounces of water, juice, soda, coffee or tea. * 1814 (Not Given - Provider: Terra Etienne RN - Reason: Patient/family refused) * 0958 (Given - Provider: Mandy Munson RN, Instructor) * 0929 (Given - Provider: Kelley Hills, RN) sennosides-docusate sodium (SENOKOT-S) 8.6-50 mg 2 tablet 2 tablet, oral, Nightly, First dose on Sun11/26/24 at 2200 * 214 (Given - Provider: Jeniffer Wade, BRIAN) * 2103 (Given - Provider: Jeniffer Wade RN) Medication Order11/29//// ALPRAZolam (XANAX) tablet 0.25 mg (COMPLETED) 0.25 mg, oral, Once as needed, sleep, Starting on Sun11/28/24 at 2148, For 1 dose, Look-alike/sound-alike medication - verify indication for use. * 2158 (Given - Provider: Jeniffer Wade RN) dextrose (GLUTOSE) 40 % gel 15 g 15 g, oral, As needed, low blood sugar, blood glucose less than 70 mg/dL, Starting on Sun11/26/24 at 1741, If patient conscious and taking PO. If blood glucose is not greater than 70 mg/dL after initial treatment, repeat treatment. dextrose (GLUTOSE) 40 % gel 15 g 15 g, oral, As needed, low blood sugar, blood glucose less than 70 mg/dL, Starting on Sun11/28/24 at 1802, If patient conscious and taking PO. If blood glucose is not greater than 70 mg/dL after initial treatment, repeat treatment. dextrose 5 % (D5W) infusion 100 mL/hr, intravenous, Continuous PRN, blood glucose less than 70 mg/dL, Starting on Sun11/26/24 at 1741, For 365 days, Use immediately following dextrose 50% or glucagon treatment for patients who are unconscious or NPO. Contact prescriber for additional orders. If blood glucose is not greater than 70 mg/dL after initial treatment, repeat treatment. dextrose 5 % (D5W) infusion 100 mL/hr, intravenous, Continuous PRN, blood glucose less than 70 mg/dL, Starting on Sun11/28/24 at 1802, For 365 days, Use immediately following dextrose 50% or glucagon treatment for patients whoare unconscious or NPO. Contact prescriber for additional orders. If blood glucose is not greater than 70 mg/dL after initial treatment, repeat treatment. dextrose 50 % in water (D50W) 50% solution 25 mL 25 mL, intravenous, As needed, low blood sugar, blood glucose less than 70 mg/dL and unconscious orNPO with IV access, Starting on Sun11/26/24 at 1741, Push over 1-3 minutes STAT. If conscious and not NPO, immediately follow with meal tray or high protein (7 grams) snack if tray not available. If NPO, initiate 5% dextrose in water at 100 mL/hr and contact prescriber for additional orders. If blood glucose is not greater than 70 mg/dL after initial treatment, repeat treatment. VESICANT (RED) Warning: HYPERTONIC solution. dextrose 50 % in water (D50W) 50% solution 25 mL 25 mL, intravenous, As needed, low blood sugar, blood glucose less than 70 mg/dL and unconscious orNPO with IV access, Starting on Sun11/28/24 at 1802, Push over 1-3 minutes STAT. If conscious and not NPO, immediately follow with meal tray or high protein (7 grams) snack if tray not available. IfNPO, initiate 5% dextrose in water at 100 mL/hr and contact prescriber for additional orders. If blood glucose is not greater than 70 mg/dL after initial treatment, repeat treatment. VESICANT (RED) Warning: HYPERTONIC solution. glucagon HCL injection 1 mg 1 mg, intramuscular, As needed, low blood sugar, blood glucose less than 70 mg/dL and unconscious or NPO without IV access., Starting on Sun11/26/24 at 1741, If conscious and not NPO, immediately follow with meal tray or high protein (7Grams) snack if tray not available. If NPO, initiate IV 5% Dextr ose/Water at 100 mL/hr and contact prescriber for additional orders. If blood glucose is not greater than 70 mg/dL after initial treatment, repeat treatment. glucagon HCL injection 1 mg 1 mg, intramuscular, As needed, low blood sugar, blood glucose less than 70 mg/dL and unconscious or NPO without IV access., Starting on Sun11/28/24 at 1802, If conscious and not NPO, immediately follow with meal tray or high protein (7Grams) snack if tray not available. If NPO, initiate IV 5% Dext hubert/Water at 100 mL/hr and contact prescriber for additional orders. If blood glucose is not greater than 70 mg/dL after initial treatment, repeat treatment. HYDROmorphone (DILAUDID) injection 0.25 mg 0.25 mg, intravenous, Every 2 hour PRN, pain unresponsive to oral analgesic medication, breakthrough pain, or patients who are unable to take PO, Starting on Sun11/26/24 at 1638, If IV push, administer over over 2 to 3 minutes. Look-alike/sound-alike medication - verify indication for use. ondansetron (PF) (ZOFRAN) injection 4 mg 4 mg, intravenous, Every 4 hours PRN, nausea, Starting on Sun11/26/24 at 1637, Intravenous administration preferred to be given over 2-5 minutes., Intravenous Specific Administration: IV Push oxyCODONE (ROXICODONE) immediate release tablet 2.5 mg 2.5 mg, oral, Every 4 hours PRN, mild to moderate pain - pain scale 1-6, Starting on Sun11/26/24 [id number], For patients less than 75 years of age. Recommend minimized narcotics, while still providing adequate analgesia, to minimize risk of sedation and delirium. The oral route is preferred for patients tolerating oral intake without nausea and vomiting. Use IV pain medications if the oral route isineffective for symptom control, or if patient unable to take medications orally. Look-alike/sound-alike medication - verify indication for use. Immediate release. oxyCODONE (ROXICODONE) immediate release tablet 5 mg 5 mg, oral, Every 4 hours PRN, severe pain - pain scale 7-10, Starting on Sun11/26/24 at 1638, For patients less than 75 years of age. Recommend minimized narcotics, while still providing adequate analgesia, to minimize risk of sedation and delirium. The oral route is preferred for patients tolerating oral intake without nausea and vomiting. Use IV pain medications if the oral route is ineffective for symptom control, or if patient unable to take medications orally. Look-alike/sound-alike medication - verify indication for use. Immediate release. * 0118 (Given - Provider: Maria Luisa Ko, RN) * 0939 (Given - Provider: Terra Etienne, RN) * 1933 (Given - Provider: Jeniffer Wade, RN) * 0844 (Given - Provider: Terra Etienne, RN) perflutren lipid microspheres (DEFINITY) dilution injection 1.43 mg/10 mL 2 mL, intravenous, As needed, contrast, Starting on Sun12/01/24 at 0740, For 6 hours, Additional Imaging Orders, Dilute 1.3 mL of Definity with 8.7mL of 0.9% NaCl in 10 mL syringe Administer 2 mL perflutren (Definity) contrast if 2 contiguous segments of the LV are not well visualized. May repeat 2 mL dose until LV visualization is accomplished. Procedure total dose not to exceed 10 mL. sodium chloride 0.9 % flush 10 mL 10 mL, intravenous, Once as needed, line care, for use for echo contrast only, Starting on Sun12/01/24 at 0740, For 6 hours, Additional Imaging Orders documented in this encounter Additional Health Concerns AssessmentNoted TimePHQ-9 Depression Total Score: 5:16 PM EDT documented as of this encounter Care Teams Team MemberRelationshipSpecialtyStart DateEnd Date Amador Abdalla MD [address] [place] [id number] PCP - GeneralFamily Oeqfpxei38/8/25documented as of this encounter
--- OUTSIDE RECORDS SUMMARY | 2024-11-26 16:15 | XMS_ITS | Encounter Summary ---
Author Organization [facility] Address [id number] [address] [place] [address] Care Team Providers Care Advisor Advocate Angel Co Founder Name Role Phone Amador Abdalla MD Primary Care Provider [phone] Reason for Referral * Misc (Routine) - Pending ReviewSpecialtyDiagnoses / ProceduresReferred By ContactReferred To Contact Procedures Adult diet Yasmin Goodrich MD [address] [place] [address] Phone: tel: fax: Referral IDStatusReasonStart DateExpiration DateVisits RequestedVisits [id number]/ * Occupational Therapy (Routine) - Pending ReviewSpecialtyDiagnoses / Procedures Referred By ContactReferred To ContactOccupational Therapy Diagnoses Closed fracture of right hip, initial encounter ([facility]) Yasmin Goodrich MD [address] [place] [address] Phone: tel: fax: Referral IDStatusReasonStart DateExpiration DateVisits RequestedVisits [id number] Review Specialty Services Required / * Physical Therapy (Routine) - Pending ReviewSpecialtyDiagnoses / Procedures Referred By ContactReferred To ContactRehabilitation Diagnoses Closed fracture of right hip, initial encounter ([facility]) Yasmin Goodrich MD [address] [place] [address] Phone: tel: fax: Referral IDStatusReasonStart DateExpiration DateVisits RequestedVisits [id number] Review Specialty Services Required / * Consultation (Routine) - Pending ReviewSpecialtyDiagnoses / ProceduresReferred By ContactReferred To Contact Diagnoses Closed fracture of right hip, initial encounter ([facility]) Type 2 diabetes mellitus with stage 3b chronic kidney disease, with long-term current use of insulin ([facility]) Yasmin Goodrich MD [address] [place] [address] Phone: tel: fax: Referral IDStatusReasonStart DateExpiration DateVisits RequestedVisits [id number]/ Reason for Visit * ReasonCommentsFall * Auth/CertSpecialtyDiagnoses / ProceduresReferred By ContactReferred To Contact Diagnoses Pre-op exam Closed fracture of right hip, initial encounter ([facility]) Gonzalo Rolle MD [address] [place] [address] Phone: tel: fax: Referral IDStatusReasonStart DateExpiration DateVisits RequestedVisits [id number] Encounter Details DateTypeDepartmentCare Team (Latest Contact Info)Dcpugwzyxhj69/08/2025 4:15 PM EDT - 12/01/2024 3:42 PM EDTHospital Encounter [facility] [address] [place] [address] Gian Green DO [address] [place] [address] Gonzalo Rolle MD [address] [place] [address] Yasmin Goodrich MD [address] [place] [address] Closed fracture of right hip, initial encounter ([facility]) (Primary Dx); Type 2 diabetes mellitus with stage 3b chronic kidney disease, with long-term current use of insulin ([facility]) Discharge Disposition: [facility]sp Facility-Medicare Cert Social History Tobacco UseTypesPacks/DayYears UsedDateSmoking Tobacco: NeverSmokeless Tobacco: Never Tobacco Cessation:Counseling Given: Not Answered Alcohol UseStandard Drinks/WeekCommentsNot Currently0 (1 standard drink = 0.6 oz pure alcohol)[facility] UtilitiesAnswerDate RecordedIn the past 12 months has the [employer], gas, oil, or water [employer] threatened to shut off services in your home?No11/26/2024PHQ-2AnswerDate RecordedTotal Pnjor691PRAPARE - TransportationAnswerDate RecordedIn the past 12 months, [...] a part of a household?No11/26/2024hildcareAnswerDate RecordedChildcareUnknown 07/31/2018EmploymentAnswerDate NjaoyhxfNdyyvhxextXwjyfpg64/12/2019Hunger ScreeningAnswerDate RecordedWithin the past 12 months we worried whether our food would run out before we got money to buy more.Never True11/26/2024Within the past 12 months the food we bought just didn't last and we didn't have money to get more.Never True11/26/2024CommentsNoSex and Gender Information ValueDate RecordedSex Assigned at BirthNot on fileLegal IgwTxsvkn77/06/2015 11:56 AM EDTGender IdentityNot on fileSexual OrientationNot on filedocumented as of this encounter Last Filed Vital Signs Vital SignReadingTime TakenCommentsBlood Epzzubje353/6412/01/2024 12:25 PM EDT Fxbih250712/01/2024 12:25 PM NFNBurfuaiqama40.9 ??C (98.4 ??F)12/01/2024 12:25 PM EDTRespiratory Rgrx5728 12:25 PM EDTOxygen Hswmcuxzwb75%12/01/2024 12:25 PM EDTInhaled Oxygen Concentration--Hoekwr01.1 kg (178 lb 12.7 oz)11/30/2024 5:18 AM XKVVkmofh632.6 cm (5' 4 )11/27/2024 10:11 AM EDTBody Mass Index30.69 11/27/2024 10:11 AM EDTdocumented in this encounter Functional Status documented as of this encounter Mental Status * QuestionAnswerEntry DateAuthorOverall Cognitive CbgnwvG43/12/2025 2:44 PM EDT Tayla Mendoza COTA/L documented in this encounter Discharge Summaries * Yasmin Goodrich MD - 12/01/2024 1:29 PM EDT Images from the original note were not included. [facility] Discharge Summary DISCHARGE NOTE Demographics: Patient Name: Elif Shah : 1945 DATE OF ADMISSION: 11/26/2024 DATE OF DISCHARGE: 12/01/2024 DISCHARGE DIAGNOSES: Principal Problem: Closed fracture of right hip, initial encounter ([facility]) CONSULTANTS: Consulting Providers Provider Service Specialty Dane Garcia MD -- Nephrology PCP: Patient Care Team: Amador Abdalla MD as PCP - General (Family Medicine) HOSPITAL COURSE SUMMARY: Per HPI: This is a 79-year-old woman who has sustained a hip fracture transferred from [place] for intervention Mild acute kidney injury on [...] and Nephrology for further SPEP update and auto heater mechanic said that he would get her in contact with the surplus property disposal agent as included on the after visit summary [...] 8.6-50 mg DISCHARGE INSTRUCTION: Disposition: Discharge to [facility] Condition:Stable Activity: per therapy Diet: Adult nutrition supplements Adult diet Regular Texture; Consistent Carb 210 grams (1800 kcal); 2000 mg Sodium; Low Potassium (50-70 mEq); Fluid Restriction 1800 mL Adult diet Follow up: Dane Garcia MD [address] [facility] [address] Follow up in 2 week(s) . MD Justin [facility] [email or web address] Please call for appointment for post discharge follow-up : Office phone Number: [phone] Office If lab work up has not been ordered before appointment , please call office above and Labs will be ordered for you so that when you come for appointment we have lab results , have results faxed to the office please Jon Garcia MD [address] [facility] [address] Follow up in 2 week(s) For Iron infusion Amador Abdalla MD [address] [facility] [address] Schedule an appointment as soon as [...] Center 12/10/2024 8:45 AM Kirby Andersen MD [facility] Office Location: [facility] [address] [place] [address] RN: Julia King RN: Makeda Bhagat RN: [...] Hip fracture in adults ??? Discharge instructions ([place] Citizen) * Osteoporosis and osteopenia (low bone mass) ([place] Citizen) * Preventing falls in adults ([place] Citizen) documented in this encounter Medications at Time [...] Indications:Closed fracture of right hip, initial encounter ([facility])Take 1 tablet (5 mg total) by mouth every 6 (six) hours as needed for pain for up to 3 days. Max Daily Amount: 20 mg 12 tablet documented as of this encounter Progress Notes * Dane Garcia MD - 12/01/2024 11:22 AM EDT Images from the original note were not included. Justin [facility] Grayson Rivero, [facility] Nephrology Progress Note Patient Name: Elif Shah [...] Dr. Dane Garcia in 3 weeks; Address [address] [place] [address], [address], [place] [address], Phone office: [phone] Thank you for this consultation DANE GARCIA MD on 12/01/2024 at 11:22 AM Justin [facility] [email or web address] Schedule : See Epic on-call schedule for [facility] ( [facility] ) Nephrology Working Hours : Epic chat during working hours, if no response please use on- call physician reach out as below After Hours : Answering service contact : [phone] Subjective Seen at bedside, no acute distress no chest pain or worsening of shortness of breath reported, no new complaint. Plan discussed in detail at bedside all questions answered in detail appropriate counseling done. Past Medical History: Diagnosis Date CHF (congestive heart failure) ([facility]) Chronic kidney disease Coronary artery disease Dental disease Diabetes mellitus type 2, controlled ([facility]) Dizziness GERD (gastroesophageal reflux disease) Hyperlipidemia Hypertension Myocardial infarction ([facility]) Prolonged emergence from general anesthesia Past Surgical History: Procedure Laterality Date CHOLECYSTECTOMY CORONARY STENT PLACEMENT ESOPHAGOSCOPY HEMIARTHROPLASTY HIP Right 11/27/2024 Performed by Kirby Andersen MD at [facility] LAPAROSCOPIC HYSTERECTOMY OOPHORECTOMY OVARIAN CYST SURGERY History [...] Resource Strain: Low Risk (01/22/2024) Received from [facility] Overall Financial Resource Strain (CARDIA) Difficulty of Paying Living Expenses: Not very hard Food Insecurity: No Food Insecurity (11/26/2024) Hunger Screening Food Insecurity - Worry: Never True Food Insecurity - Inability: Never True Transportation Needs: No Transportation Needs (11/26/2024) PRAPARE - Transportation Lack of Transportation (Medical): No Lack of Transportation (Non-Medical): No Physical Activity: Inactive (01/22/2024) Received from [facility] Exercise Vital Sign Days of Exercise per Week: 0 days Minutes of Exercise per Session: 0 min Stress: Stress Concern Present (01/22/2024) Received from [facility] [place] of Occupational Health - Occupational Stress Questionnaire Feeling of Stress : To some extent Social Connections: Moderately Isolated (01/22/2024) Received from [facility] Social Connection and Isolation Panel [NHANES] Frequency of Communication with Friends and Family: Three times a week Frequency of Social Gatherings with Friends and Family: Twice a week Attends Judaism Services: 1 to 4 times per year [...] has sustained a hip fracture transferred from [place] for intervention Mild acute kidney injury on [...] tablet 250 mg 250 mg oral Q12H [facility] Inocencia Kearney PA-C 250 mg at 11/30/24 [...] injection 5,000 Units 5,000 Units subcutaneous Q8H [facility] Inocencia Kearney PA-C 5,000 Units at 11/30/24 [...] PRN Gonzalo Rolle MD 5 mg at 11/30/24 0844 PARoxetine [...] Closed fracture of right hip, initial encounter ([facility]) Imaging Imaging has been reviewed in detail [...] no distress. HEENT: Atraumatic, normocephalic. Anicteric sclera. [place] and moist oral mucosa. No carotid bruit. No JVD. Chest: Bilateral air entry, clear to auscultation, no wheezing, rhonchi or rales. Cardiovascular: RRR, S1S2, no murmur, rub or gallop. Has lower extremity edema. Abdomen: Soft, non tender to palpation. Active bowel sounds x 4 quadrants. Musculoskeletal: Active ROM x 4 extremities. No cyanosis or clubbing. Integumentary: [place], warm and dry. Free from rash or lesions. Skin turgor normal. SOLE PAINTER: Oriented to person, place and time. Speech [...] has sustained a hip fracture transferred from [place] for intervention Mild acute kidney injury on [...] tablet 250 mg 250 mg oral Q12H [facility] Inocencia Kearney PA-C cholecalciferol (vitamin D3) tablet [...] injection 5,000 Units 5,000 Units subcutaneous Q8H [facility] Inocencia Kearney PA-C 5,000 Units at 11/29/24 [...] (H) <120 mg/L URINE CREATININE,RDM 83.62 mg/dL U/PRO/ASSISTED LIVING ASSISTANT RATIO CALC 1.52 (H) <=0.20 Narrative Nephrotic [...] Closed fracture of right hip, initial encounter ([facility]) Imaging Imaging has been reviewed in detail [...] Quinn RP - 11/29/2024 1:40 PM EDT [facility] Department of Pharmacy Pharmacist to Physician Communication The dose of cefuroxime for surgical prophylaxis has been changed to 250 mg every 12 hours per the [facility] approved renal dosing guidelines, based on an estimated creatinine clearance is 17.8 mL/min (A) (by C-G formula based on SCr of 2.28 mg/dL (H)). Thank you, Cinthia Quinn [facility] * Rodri Bravo MD - 11/29/2024 12:35 [...] no distress. HEENT: Atraumatic, normocephalic. Anicteric sclera. [place] and moist oral mucosa. No carotid bruit. No JVD. Chest: Bilateral air entry, clear to auscultation, no wheezing, rhonchi or rales. Cardiovascular: RRR, S1S2, no murmur, rub or gallop. Has lower extremity edema. Abdomen: Soft, non tender to palpation. Active bowel sounds x 4 quadrants. Musculoskeletal: Active ROM x 4 extremities. No cyanosis or clubbing. Integumentary: [place], warm and dry. Free from rash or lesions. Skin turgor normal. SOLE PAINTER: Oriented to person, place and time. Speech [...] has sustained a hip fracture transferred from [place] for intervention Mild acute kidney injury on [...] tablet 500 mg 500 mg oral Q12H [facility] Inocencia Kearney PA-C cholecalciferol (vitamin D3) tablet [...] injection 5,000 Units 5,000 Units subcutaneous Q8H [facility] Inocencia Kearney PA-C 5,000 Units at 11/28/24 [...] range has not been established by the radiologist of this kit. The [employer] recommends a Vitamin D [...] range has not been established by the radiologist of this kit. The [employer] recommends a Vitamin D [...] (H) <120 mg/L URINE CREATININE,RDM 83.62 mg/dL U/PRO/ASSISTED LIVING ASSISTANT RATIO CALC 1.52 (H) <=0.20 Narrative Nephrotic [...] Closed fracture of right hip, initial encounter ([facility]) Imaging Imaging has been reviewed in detail [...] Dispo planning - noted PT/OT recommendations for jail facility Okay for discharge from orthopedic standpoint [...] has sustained a hip fracture transferred from [place] for intervention Mild acute kidney injury on [...] iso-osmotic dextrose (40 mg/mL premix) 2,000 mg iavpiijcmysO4V Inocencia Kearney PA-C [START ON 11/28/2024] ceFUROxime [...] 3 mL 3 mL nebulization Once PRN Maninder Claire MD labetaloL (NORMODYNE,TRANDATE) injection 5 mg [...] Procedure Abnormality Status --------- ------ Light Blue Top[[id number]] Final result SST TOP[[id number]] Final result Please view results for these [...] range has not been established by the radiologist of this kit. The [employer] recommends a Vitamin D [...] range has not been established by the radiologist of this kit. The [employer] recommends a Vitamin D [...] range has not been established by the radiologist of this kit. The [employer] recommends a Vitamin D [...] Closed fracture of right hip, initial encounter ([facility]) Imaging Imaging has been reviewed in detail [...] the emergency department after being transferred from [place]. Patient was walking too fast with her walker, sustained a fall and developedsevere right hip pain. Patient denies loss of consciousness. . Only severe right hip pain. X-ray ofher hip showed right subcapital femoral neck fracture and patient was transferred to [facility] for further management. Patient denies chest pain, [...] Procedure Abnormality Status --------- ------ Light Blue Top[[id number]] Final result SST TOP[[id number]] Final result Please view results for these [...] List Diagnosis Chronic diastolic congestive heart failure ([facility]) Other fracture of unspecified lumbar vertebra, subsequent encounter for fracture with routine healing Essential hypertension Iron deficiency anemia, unspecified Type 2 diabetes mellitus with stage 3b chronic kidney disease, with long-term current use of insulin ([facility]) Personal history of transient ischemic attack (TIA), and cerebral infarction without residual deficits Acute combined systolic and diastolic heart failure ([facility]) Pure hypercholesterolemia Recurrent major depressive disorder, in remission Gastroesophageal reflux disease Old myocardial infarction Generalized anxiety disorder Fibromyalgia Urinary tract infection with hematuria Pneumonia due to infectious organism Weakness History of falling Closed fracture of right hip, initial encounter ([facility]) Past Medical History: Past Medical History: Diagnosis Date CHF (congestive heart failure) ([facility]) Chronic kidney disease Coronary artery disease Dental disease Diabetes mellitus type 2, controlled ([facility]) Dizziness GERD (gastroesophageal reflux disease) Hyperlipidemia Hypertension Myocardial infarction ([facility]) Prolonged emergence from general anesthesia Past Surgical History: Past Surgical History: Procedure Laterality Date CHOLECYSTECTOMY CORONARY STENT PLACEMENT ESOPHAGOSCOPY HEMIARTHROPLASTY HIP Right 11/27/2024 Performed by Kirby Andersen MD at [facility] LAPAROSCOPIC HYSTERECTOMY OOPHORECTOMY OVARIAN CYST SURGERY Social/ [...] (H) 03/19/2024 Lab Results Component Value Date [id number] 275 11/26/2024 Lab Results Component Value Date [...] tablet 500 mg 500 mg oral Q12H [facility] Inocencia Kearney PA-C cholecalciferol (vitamin D3) tablet [...] injection 5,000 Units 5,000 Units subcutaneous Q8H [facility] Inocencia Kearney PA-C 5,000 Units at 11/28/24 [...] Skin (per nursing flow sheets): Skin Color: [place] (11/28/24819) Skin Temp: Warm; Dry (11/28/24819) Wound [...] (Bed Scale, 11/27) Usual Body Weight: - [place] Body Weight: 54.5kg Percent [place] Body Weight: 139 Weight Changes: stable per above Body Mass Index: Body mass index is 31.07 kg/m??. BMI Category: Obese class 1 (30.00- 34.99) Comparative Standards: Estimated Energy Needs: 7523-6651 kcals daily. Method and weight used: 25-30 kcal/kg IBW Estimated Protein Needs: 65-90 grams daily. Method and weight used: 1.2-2g protein/kg IBW Estimated Fluid Needs: 4372-3591 ml daily. Method weight used: 25-30 ml/kg [...] Gabriella Olvera R.D,L.D. Clinical dietitian Patient Touch extension:[phone] Direct Dial phone number: [phone] 11/28/24 11:43 AM * Dane Garcia MD - 11/28/2024 6:54 AM EDTAssociated Order(s): IP CONSULT TO NEPHROLOGY Images from the original note were not included. Justin [facility] Grayson Rivero CNP Nephrology Consultation Note [...] Justin Abb[facility] [email or web address] Schedule : See Epic on-call schedule for [facility] ( [facility] ) Nephrology Working Hours : Epic chat during working hours, if no response please use on- call physician reach out as below After Hours : Answering service contact : [phone] History of presenting illness 79-year-old female with [...] History: Diagnosis Date CHF (congestive heart failure) ([facility]) Chronic kidney disease Coronary artery disease Dental disease Diabetes mellitus type 2, controlled ([facility]) Dizziness GERD (gastroesophageal reflux disease) Hyperlipidemia Hypertension Myocardial infarction ([facility]) Prolonged emergence from general anesthesia Past Surgical [...] Resource Strain: Low Risk (01/22/2024) Received from [facility] Overall Financial Resource Strain (CARDIA) Difficulty of Paying Living Expenses: Not very hard Food Insecurity: No Food Insecurity (11/26/2024) Hunger Screening Food Insecurity - Worry: Never True Food Insecurity - Inability: Never True Transportation Needs: No Transportation Needs (11/26/2024) PRAPARE - Transportation Lack of Transportation (Medical): No Lack of Transportation (Non-Medical): No Physical Activity: Inactive (01/22/2024) Received from [facility] Exercise Vital Sign Days of Exercise per Week: 0 days Minutes of Exercise per Session: 0 min Stress: Stress Concern Present (01/22/2024) Received from [facility] [place] [facility] [employer]ational Health - Occupational Stress Questionnaire Feeling of Stress : To some extent Social Connections: Moderately Isolated (01/22/2024) Received from [facility] Social Connection and Isolation Panel [NHANES] Frequency of Communication with Friends and Family: Three times a week Frequency of Social Gatherings with Friends and Family: Twice a week Attends Judaism Services: 1 to 4 times per year [...] Weekly heparin (porcine), 5,000 Units, subcutaneous, Q8H BYOD insulin lispro, 1-4 Units, subcutaneous, Nightly insulin [...] is a 79 y.o. female presents to [facility] with right hip pain. Patient states that she was walking too fast with her walker and fell onto her right side. She had immediate pain and inability to ambulate. She was seen at an outside hospital and subsequently transferred to the [facility] for definitive treatment. She denies pain or [...] Cui RN - 11/26/2024 7:18 PM EDT [facility] calls requesting update. Aircraft Refueller stated patient was transferred to [facility] ER. * Mandy Gannon RN - 11/26/2024 5:18 PM EDT Bed: 41 Expected date: Expected time: Means of arrival: Comments: 29 * Gian Green DO - 11/26/2024 4:39 PM EDT Images from the original note were not included. [facility] - EMERGENCY DEPARTMENT Pt Name: Elif Shah [...] Resource Strain: Low Risk (01/22/2024) Received from [facility] Overall Financial Resource Strain (CARDIA) Difficulty of Paying Living Expenses: Not very hard Food Insecurity: No Food Insecurity (11/26/2024) Hunger Screening Food Insecurity - Worry: Never True Food Insecurity - Inability: Never True Transportation Needs: No Transportation Needs (09/24/2024) [facility] Lack of Transportation (Medical): No Lack of Transportation (Non-Medical): No Physical Activity: Inactive (01/22/2024) Received from [facility] Exercise Vital Sign Days of Exercise per Week: 0 days Minutes of Exercise per Session: 0 min Stress: Stress Concern Present (01/22/2024) Received from [facility] [place] [facility] [employer] - Occupational Stress Questionnaire Feeling of Stress : To some extent Social Connections: Moderately Isolated (01/22/2024) Received from [facility] Social Connection and Isolation Panel [NHANES] Frequency of Communication with Friends and Family: Three times a week Frequency of Social Gatherings with Friends and Family: Twice a week Attends Judaism Services: 1 to 4 times per year Active Member of Clubs or Organizations: No Attends Club or Organization Meetings: Never Marital Status: Received from [facility] [place] Safety & Environment Housing Instability: Low Risk (09/24/2024) Received from [facility] Housing Stability Vital Sign Unable to Pay [...] Closed fracture of right hip, initial encounter ([facility]) . ED Disposition ED Disposition Admit Date/Time SunNov 26, 2024 4:37 PM Comment At this time, the patient has objective evidence of an acute process that will likely require hospitalization for greater than 2 midnights. The patient will be admitted. Shared/Split Visit 16:20 EDT Tanya Diaz (scribe), scribed for and in the presence of: Dr. Melia Green who performed the above service. I, Dr. Melia Green personally performed a [id number] diagnostic evaluation on this patient. I personally made and approved the management plan for this patient and take responsibility for the patient management. Additional Notes/Findings: Elif Shah is a 79 y.o. female presenting to the ED for chief complaint of a fall. Patient arrives after a slip and fall on her right hip at the [facility]. Denies injury anywhere else. Exam [...] EDT Pt to ED via EMS from [place]. EMS reports pt was walking too fast with walker and slipped and fellon [facility]. Pt presented to [place] ER where she was found to have a right subcapital femoral neck fracture. Pt denies LOC or hitting head. Pt presents a&ox4, vss, and NAD noted. * Mandy Gannon RN - 11/26/2024 4:15 PM EDT Bed: 29 Expected date: Expected time: Means of arrival: [facility] Comments: 79 YO F from [facility] ER transfer Elif Shah. 1945 A&Ox4 Tripped over walker trying to get to [facility] 50mcg Fent 79 y/o F. Right subcapital femoral neck fracture. Dr. Bhagat (orthopedic) accepted to ER. Dr. Ness aware of patient. Question, call Access @ [phone] EMS: 65 HR 95%RA 152/56 ETA 15 min Right hip pain 08/28 documented in this encounter Miscellaneous Notes * Discharge Planning Note - LOVELY Ulloa - 12/01/2024 1:34 PM EDT DC plan SNF: [facility] accepting pt. We have insurance approval. Pt [...] Discharge Disposition SNF SNF Name [facility] SNF Accepted? Yes PreCertification Authorization Number [id number] PreCertification Expiration Date 12/04/24 PreCertification Expiration Time 8723 Does the patient need discharge transportation arranged? Yes Transportation Arranged Ambulance Patient choice offered Yes List Provided Yes [facility] List Provided [facility] Facility Respiratory Indicator Does the patient currently [...] Description: INTERVENTIONS: 1. Encourage patient or legal hostess party sales representative to report early pain and ask [...] per policy 9. Teach patient or legal hostess party sales representative interventions for comforting Outcome: Progressing Note: [...] at the bedside 7. Instruct patient/ patient hostess party sales representative about use of safety devices 8. Include patient/ patient hostess party sales representative in decisions related to safety Outcome: [...] hygiene technique. 7. Identify and instruct patient/patient hostess party sales representative in use of appropriate isolation precautionsfor identified infection/symptoms. 8. Provide and discuss with patient/patient hostess party sales representative on educational MDRO sheet. 9. Encourage and monitor nutritional status daily and consult nursery teacher if indicated. 10. Implement neutropenic guidelines as needed. Outcome: Progressing Note: Evaluation of progress towards goal: PO cefuroxime continued, afebrile Problem: Knowledge Deficit Goal: Patient/patient hostess party sales representative demonstrates understanding of disease process, treatment [...] Score of =/> 25 or indicated by [facility] Assessment Goal: Patient should be free from fall Description: Interventions: 1. [place] to environment 2. Hourly rounds addressing the [...] non-skid footwear 11. Teach patient and patient hostess party sales representative to maintain environment for safety and [...] (cane, walker) within reach 19. Request patient hostess party sales representative bring adaptive equipment/mobility aids from home or obtain and provide as needed 20. Consult pharmacy regarding effects of med's affecting mobility, cognition, and alternatives 21. Obtain physician order for PT if risk factors associated with mobility are present 22. Obtain physician order for OT as appropriate 23. Utilize diversional activities 24. Educate patient and patient hostess party sales representative how to maintain a safe environment during visitationtimes (notify nurse prior to leaving bedside) 25. Consider appropriateness of medical or non-medical artist 26. Set up voiding schedule as appropriate [...] supplement as ordered 13. Collaborate with clinical nursery teacher 14. Include patient/ patient's hostess party sales representative in decisions related to nutrition Outcome: [...] care as appropriate 6. Collaborate with case management/social media intern for discharge needs Outcome: Completed Note: Evaluation of progress towards goal: no spiritual needs * PT/OT/CELERY PACKER - SARAH Bynum/Alexsander - 12/01/2024 11:03 AM [...] Equipment: gait belt, kim stedy, external cath Telemetry/Physiology Teacher: No Oxygen Used: 2L Other: fall risk [...] midline. poor return noted. pt stood in kim stedy for approx 1-2 mins with B [...] Patient will perform bed mobility with Modified [place] Dates: Start: 11/28/24 Expected End: 12/26/24 Description: Goal Description: Disciplines: OT Outcomes Date/Time User Outcome 12/01/24 110 SARAH Bynum/Alexsander Not Progressing 11/29/24 1605 Jodie Brown SMITH/L Progressing 11/29/24 1042 Jodie Brown SMITH/L Progressing Goal Note filed on 12/01/24 1102 by TIFFANY Bynum Evaluation of progress towards goal: Problem: Dressing LB Dates: Start: 11/28/24 Disciplines: OT Goal: Patient will perform dressing LB with Modified [place] Dates: Start: 11/28/24 Expected End: 12/26/24 Description: [...] Patient will perform toilet transfers with Modified [place] Dates: Start: 11/28/24 Expected End: 12/26/24 Description: Goal Description: Disciplines: OT Problem: Toileting Dates: Start: 11/28/24 Disciplines: OT Goal: Patient will perform toileting with Modified [place] Dates: Start: 11/28/24 Expected End: 12/26/24 Description: Goal Description: Disciplines: OT Problem: Transfers Dates: Start: 11/28/24 Disciplines: OT Goal: Patient will perform transfers with Modified [place] Dates: Start: 11/28/24 Expected End: 12/26/24 Description: Goal Description: Disciplines: OT Outcomes Date/Time User Outcome 12/01/24 1102 SARAH Bynum/Alexsander Progressing 11/29/24 1605 SARAH Lopez/Alexsander Progressing 11/29/24 1042 DONNA LopezA/Alexsander Progressing Goal Note filed on 12/01/24 1102 by SARAH Bynum/Alexsander Evaluation of progress towards goal: Occupational Therapy Care Plan (Resolved) There are no resolved problems. Principal Problem: Closed fracture of right hip, initial encounter ([facility]) Cosigned by PROSPER Mckinley/Alexsander at 12/01/2024 11:42 AM EDT Associated attestation - Kim Washington OTR/Alexsander - 12/01/2024 11:42 AM EDT I have reviewed and agree with this note and education documentation for this visit. * Discharge Planning Note - DEREK Torres-P - 12/01/2024 10:43 AM EDT DISCHARGE PLANNING NOTE BLS transport confirmed via [facility] going to [facility] on 12/01/2024 at 1400 * PT/OT/CELERY PACKER - Stephania Barrios PTA - 12/01/2024 8:42 [...] mobility pass Equipment: gait belt, kim stedy Telemetry/Physiology Teacher: No Oxygen Used: 2 liters oxygen Other: [...] Date/Time User Outcome 12/01/24 1313 Stephania Barrios, DISTANCE LEARNING PROGRAM COORDINATOR Progressing 11/30/24 1654 Nellie Ibarra, MEENU Not [...] Date/Time User Outcome 12/01/24 1313 Stephania Barrios, DISTANCE LEARNING PROGRAM COORDINATOR Progressing 11/30/24 1654 Nellie Ibarra, DISTANCE LEARNING PROGRAM COORDINATOR Not Progressing 11/29/24 1714 Nellie Ibarra, MEENU [...] Date/Time User Outcome 12/01/24 1313 Stephania Barrios, DISTANCE LEARNING PROGRAM COORDINATOR Progressing 11/30/24 1654 Nellie Ibarra DISTANCE LEARNING PROGRAM COORDINATOR Not Progressing 11/29/24 1714 Nellie Ibarra, DISTANCE LEARNING PROGRAM COORDINATOR Progressing 11/29/24 1404 Nellie Ibarra PTA Progressing Goal Note filed on 11/30/24 1654 by Nellie Ibarra PTA Evaluation of progress towards goal: Problem: Transfers Dates: Start: 11/28/24 Disciplines: PT Goal: Patient will perform transfers with Minimum Assist Dates: Start: 11/28/24 Expected End: 12/12/24 Description: Goal Description: Disciplines: PT Outcomes Date/Time User Outcome 12/01/24 1313 Stephania Barrios, DISTANCE LEARNING PROGRAM COORDINATOR Progressing 11/30/24 1654 Nellie Ibarra PTA Not Progressing 11/29/24 1714 Nellie Ibarra, DISTANCE LEARNING PROGRAM COORDINATOR Progressing 11/29/24 1404 Nellie Ibarra PTA Progressing Goal Note filed on 11/30/24 1654 by Nellie Ibarra PTA Evaluation of progress towards goal: Physical Therapy Care Plan (Resolved) There are no resolved problems. Principal Problem: Closed fracture of right hip, initial encounter ([facility]) Cosigned by Julia Tyson, PT at 12/01/2024 [...] Description: INTERVENTIONS: 1. Encourage patient or legal hostess party sales representative to report early pain and ask [...] per policy 9. Teach patient or legal hostess party sales representative interventions for comforting Outcome: Progressing Note: Evaluation of progress towards goal: Patient resting in bed comfortably. Patient states PRN pain medication working to control her pain as directed. * PT/OT/CELERY PACKER - TIFFANY Forman - 11/30/2024 5:02 PM [...] belt, RW Weight Bearing Status: WBAT RLE Telemetry/Physiology Teacher: No Oxygen Used: 2L Other: fall risk [...] (x2 with HOB elevated, maxcues for sequencing, CAPITAN GRANDE BAND assist for hand placement, max A for trunk righting and LE transition to EOB.) Sit to Supine: (pt remained in recliner at end of session.) Other: pt requires much increased time/effort with max A x 2 for supine to sit this date requiring encouragement to participate as pt would prefer instructional writer assist. pt retired to recliner at end [...] assist, Verbal cues, Visual cues, Tactile cues (Kim Stedy) Other: pt lethargic today requiring increased [...] Patient will perform bed mobility with Modified [place] Dates: Start: 11/28/24 Expected End: 12/26/24 Description: Goal Description: Disciplines: OT Outcomes Date/Time User Outcome 11/29/24 1605 DONNA LopezA/Alexsander Progressing 11/29/24 1042 DONNA LopezA/Alexsander Progressing Problem: Dressing LB Dates: Start: 11/28/24 Disciplines: OT Goal: Patient will perform dressing LB with Modified [place] Dates: Start: 11/28/24 Expected End: 12/26/24 Description: [...] Patient will perform toilet transfers with Modified [place] Dates: Start: 11/28/24 Expected End: 12/26/24 Description: Goal Description: Disciplines: OT Problem: Toileting Dates: Start: 11/28/24 Disciplines: OT Goal: Patient will perform toileting with Modified [place] Dates: Start: 11/28/24 Expected End: 12/26/24 Description: Goal Description: Disciplines: OT Problem: Transfers Dates: Start: 11/28/24 Disciplines: OT Goal: Patient will perform transfers with Modified [place] Dates: Start: 11/28/24 Expected End: 12/26/24 Description: Goal Description: Disciplines: OT Outcomes Date/Time User Outcome 11/29/24 1605 TIFFANY Lopez Progressing 11/29/24 1042 TIFFANY Lopez Progressing Occupational Therapy Care Plan (Resolved) There are no resolved problems. Principal Problem: Closed fracture of right hip, initial encounter ([facility]) Cosigned by DOMENICA Mckinley at 12/01/2024 7:23 AM EDT Associated attestation - Kim Washington OTR/L - 12/01/2024 7:23 AM EDT I have reviewed and agree with this note and education documentation for this visit. * PT/OT/CELERY PACKER - Nellie Ibarra PTA - 11/30/2024 1:58 [...] 6 Clicks: Basic Mobility Raw Score: 9 [facility] G Code Modifier: CL Therapy Plan PT [...] belt, RW Weight Bearing Status: WBAT RLE Telemetry/Physiology Teacher: No Oxygen Used: 2L Other: fall risk [...] encouragement to initiate movements rather than allow instructional writer to perform them for her. Pt denied [...] Weightbearing x (L<>R sitting- mirror technique with instructional writer sitting in front of pt) Seated unsupported [...] had difficulty correcting balance and posture with instructional writer's verbal cueing- required tactile and visual cues [...] Date/Time User Outcome 11/30/24 1654 Nellie Ibarra DISTANCE LEARNING PROGRAM COORDINATOR Not Progressing 11/29/24 1714 Nellie Ibarra, DISTANCE LEARNING PROGRAM COORDINATOR Progressing 11/29/24 1404 Nellie Ibarra PTA Progressing [...] PTA Not Progressing 11/29/24 1714 Nellie Ibarra, DISTANCE LEARNING PROGRAM COORDINATOR Progressing 11/29/24 1404 Nellie Ibarra PTA Progressing Goal Note filed on 11/30/241653 by Nellie Ibarra PTA Evaluation of progress towards goal: Problem: Strength Dates: Start: 11/28/24 Disciplines: PT Goal: Improve strength Dates: Start: 11/28/24 Expected End: 12/12/24 Description: Of extremity/ location:Complete 20 reps BLE ex's To facilitate: Disciplines: PT Outcomes Date/Time User Outcome 11/30/244 Nellie Ibarra PTA Not Progressing 11/29/24 1714 Nellie Ibarra, DISTANCE LEARNING PROGRAM COORDINATOR Progressing 11/29/24 1404 Nellie Ibarra PTA Progressing [...] Closed fracture of right hip, initial encounter ([facility]) Cosigned by Julia Tyson, PT at 12/01/2024 7:50 AM EDT Associated attestation Julia Parada PT - 12/01/2024 7:50 AM EDT I have reviewed and agree with this note and education documentation for this visit. * PT/OT/CELERY PACKER - SARAH Forman/Alexsander - 11/30/2024 10:45 AM EDT Occupational Therapy OT Type of Visit: Medical deferral Reason For Medical Deferral: Vitals outside safe parameters (ELEVATED BP PER RN) Cosigned by PROSPER Mckinley/Alexsander at 12/01/2024 7:23 AM EDT Associated Kim Oro OTR/Alexsander - 12/01/2024 7:23 AM EDT I have reviewed and agree with this note and education documentation for this visit. * PT/OT/CELERY PACKER - Nellie Ibarra PTA - 11/30/2024 9:20 [...] Description: INTERVENTIONS: 1. Encourage patient or legal hostess party sales representative to report early pain and ask [...] per policy 9. Teach patient or legal hostess party sales representative interventions for comforting Outcome: Progressing Note: [...] at the bedside 7. Instruct patient/ patient hostess party sales representative about use of safety devices 8. Include patient/ patient hostess party sales representative in decisions related to safety Outcome: [...] Description: INTERVENTIONS: 1. Encourage patient or legal hostess party sales representative to report early pain and ask [...] per policy 9. Teach patient or legal hostess party sales representative interventions for comforting 11/30/2024 09 by BRIAN Ellison Outcome: Progressing Note: Evaluation of progress towards goal: Pt states current pain regimen relieves pain. Prn meds available. Pt encouraged to express needs for pain medication on a scale of 1-10. Vitals signs being monitored per policy. 11/30/2024 08 by BRIAN Ellison Outcome: Progressing Note: Evaluation [...] at the bedside 7. Instruct patient/ patient hostess party sales representative about use of safety devices 8. Include patient/ patient hostess party sales representative in decisions related to safety 11/30/2024906 [...] Description: INTERVENTIONS: 1. Encourage patient or legal hostess party sales representative to report early pain and ask [...] per policy 9. Teach patient or legal hostess party sales representative interventions for comforting Outcome: Progressing Note: Evaluation of progress towards goal: Patient states pain is well controlled with PRN pain medication. Patient does not complain of any pain at this time. * PT/OT/CELERY PACKER - TIFFANY Lopez - 11/29/2024 4:31 PM [...] belt, RW Weight Bearing Status: WBAT RLE Telemetry/Physiology Teacher: No Oxygen Used: room air (applied 2L [...] difficulty coming to standing d/t poor technique. Aircraft Refueller demonstrated rocking technique for momentum with good [...] Patient will perform bed mobility with Modified [place] Dates: Start: 11/28/24 Expected End: 12/26/24 Description: Goal Description: Disciplines: OT Outcomes Date/Time User Outcome 11/29/24 1605 SARAH Lopez/Alexsander Progressing 11/29/24 1042 SARAH Lopez/Alexsander Progressing Problem: Dressing LB Dates: Start: 11/28/24 Disciplines: OT Goal: Patient will perform dressing LB with Modified [place] Dates: Start: 11/28/24 Expected End: 12/26/24 Description: [...] Patient will perform toilet transfers with Modified [place] Dates: Start: 11/28/24 Expected End: 12/26/24 Description: Goal Description: Disciplines: OT Problem: Toileting Dates: Start: 11/28/24 Disciplines: OT Goal: Patient will perform toileting with Modified [place] Dates: Start: 11/28/24 Expected End: 12/26/24 Description: Goal Description: Disciplines: OT Problem: Transfers Dates: Start: 11/28/24 Disciplines: OT Goal: Patient will perform transfers with Modified [place] Dates: Start: 11/28/24 Expected End: 12/26/24 Description: Goal Description: Disciplines: OT Outcomes Date/Time User Outcome 11/29/24 1605 SARAH Lopez/Alexsander Progressing 11/29/24 1042 DONNA LopezA/Alexsander Progressing Occupational Therapy Care Plan (Resolved) There are no resolved problems. Principal Problem: Closed fracture of right hip, initial encounter ([facility]) Cosigned by Sharon Napier OT/L at 11/30/2024 6:53 AM EDT Associated attestation - Sharon Napier OT/L - 11/30/2024 6:53 AM EDT I have reviewed and agree with this note and education documentation for this visit. * PT/OT/CELERY PACKER - Nellie Ibarra PTA - 11/29/2024 2:17 [...] catheter Weight Bearing Status: WBAT R LE Telemetry/Physiology Teacher: No Oxygen Used: room air (inc to [...] Closed fracture of right hip, initial encounter ([facility]) Cosigned by Connor Carreon PT at 11/30/2024 6:50 AM EDT Associated attestation - Connor Carreon PT - 11/30/2024 6:50 AM EDT I have reviewed and agree with this note and education documentation for this visit. * PT/OT/CELERY PACKER - SARAH Lopez/Alexsander - 11/29/2024 11:12 AM [...] female ex-cath Weight Bearing Status: WBAT RLE Telemetry/Physiology Teacher: No Oxygen Used: 2L Other: fall risk [...] Patient will perform bed mobility with Modified [place] Dates: Start: 11/28/24 Expected End: 12/26/24 Description: Goal Description: Disciplines: OT Outcomes Date/Time User Outcome 11/29/24 Saskia SARAH Lopez/Alexsander Progressing Problem: Dressing LB Dates: Start: 11/28/24 Disciplines: OT Goal: Patient will perform dressing LB with Modified [place] Dates: Start: 11/28/24 Expected End: 12/26/24 Description: [...] Patient will perform toilet transfers with Modified [place] Dates: Start: 11/28/24 Expected End: 12/26/24 Description: Goal Description: Disciplines: OT Problem: Toileting Dates: Start: 11/28/24 Disciplines: OT Goal: Patient will perform toileting with Modified [place] Dates: Start: 11/28/24 Expected End: 12/26/24 Description: Goal Description: Disciplines: OT Problem: Transfers Dates: Start: 11/28/24 Disciplines: OT Goal: Patient will perform transfers with Modified [place] Dates: Start: 11/28/24 Expected End: 12/26/24 Description: Goal Description: Disciplines: OT Outcomes Date/Time User Outcome 11/29/24 1042 TIFFANY Lopez Progressing Occupational Therapy Care Plan (Resolved) There are no resolved problems. Principal Problem: Closed fracture of right hip, initial encounter ([facility]) Cosigned by Sharon Napier OT/L at 11/29/2024 11:47 AM EDT Associated attestation - Sharon Napier OT/L - 11/29/2024 11:47 AM EDT I have reviewed and agree with this note and education documentation for this visit. * PT/OT/CELERY PACKER - Nellie Ibarra PTA - 11/29/2024 8:48 [...] catheter Weight Bearing Status: WBAT R LE Telemetry/Physiology Teacher: No Oxygen Used: 2L Other: Fall risk [...] Closed fracture of right hip, initial encounter ([facility]) Cosigned by Johana Flores PT at 11/29/2024 [...] Description: INTERVENTIONS: 1. Encourage patient or legal hostess party sales representative to report early pain and ask [...] per policy 9. Teach patient or legal hostess party sales representative interventions for comforting Outcome: Progressing Note: [...] at the bedside 7. Instruct patient/ patient hostess party sales representative about use of safety devices 8. Include patient/ patient hostess party sales representative in decisions related to safety Outcome: [...] Description: INTERVENTIONS: 1. Encourage patient or legal hostess party sales representative to report early pain and ask [...] per policy 9. Teach patient or legal hostess party sales representative interventions for comforting Outcome: Progressing Note: [...] at the bedside 7. Instruct patient/ patient hostess party sales representative about use of safety devices 8. Include patient/ patient hostess party sales representative in decisions related to safety Outcome: [...] hygiene technique. 7. Identify and instruct patient/patient hostess party sales representative in use of appropriate isolation precautionsfor identified infection/symptoms. 8. Provide and discuss with patient/patient hostess party sales representative on educational MDRO sheet. 9. Encourage and monitor nutritional status daily and consult nursery teacher if indicated. 10. Implement neutropenic guidelines as needed. Outcome: Progressing Note: Evaluation of progress towards goal: monitor for signs and symptoms of infection Problem: Knowledge Deficit Goal: Patient/patient hostess party sales representative demonstrates understanding of disease process, treatment [...] be free from fall Description: Interventions: 1. [place] to environment 2. Hourly rounds addressing the [...] non-skid footwear 11. Teach patient and patient hostess party sales representative to maintain environment for safety and [...] (cane, walker) within reach 19. Request patient hostess party sales representative bring adaptive equipment/mobility aids from home or obtain and provide as needed 20. Consult pharmacy regarding effects of med's affecting mobility, cognition, and alternatives 21. Obtain physician order for PT if risk factors associated with mobility are present 22. Obtain physician order for OT as appropriate 23. Utilize diversional activities 24. Educate patient and patient hostess party sales representative how to maintain a safe environment during visitationtimes (notify nurse prior to leaving bedside) 25. Consider appropriateness of medical or non-medical artist 26. Set up voiding schedule as appropriate [...] approved for admission to : [facility] (P# [phone] ; F# ) Approval # [id number] Valid for Dates: 11/28/2024 - 12/04/2024 * Discharge Planning Note - Celi Verdin - 11/28/2024 3:29 PM EDT DISCHARGE PLANNING NOTE Prior auth submitted to: [employer] Via: Johanne On behalf of : [facility] (P# ; F# ) We will provide reference number when available. * PT/OT/CELERY PACKER - Lisa Gonzalez, PT - 11/28/2024 2:47 [...] hospitalization. Pt resides in assisted living at [facility]. She was using her walker and fell. She presented to [place] ED with Rt hip pain. Imaging showed Rt subcapital femoral neck fx. Pt was then transferred to [facility] for higher level of care. On 11/27/24 she underwent Rt hip hemiarthroplasty. She is WBAT RLE. Chief Complaint Patient presents with Fall Past Medical History: Diagnosis Date CHF (congestive heart failure) ([facility]) Chronic kidney disease Coronary artery disease Dental disease Diabetes mellitus type 2, controlled ([facility]) Dizziness GERD (gastroesophageal reflux disease) Hyperlipidemia Hypertension Myocardial infarction ([facility]) Prolonged emergence from general anesthesia Past Surgical History: Procedure Laterality Date CHOLECYSTECTOMY CORONARY STENT PLACEMENT ESOPHAGOSCOPY HEMIARTHROPLASTY HIP Right 11/27/2024 Performed by Kirby Andersen MD at [facility] LAPAROSCOPIC HYSTERECTOMY OOPHORECTOMY OVARIAN CYST SURGERY 6 [...] 6 Clicks: Basic Mobility Raw Score: 11 [facility] G Code Modifier: CL PT Treatment/Interventions: Functional [...] belt, rw Weight Bearing Status: WBAT RLE Telemetry/Physiology Teacher: No Oxygen Used: 3L NC Other: fall [...] Closed fracture of right hip, initial encounter ([facility]) * Discharge Planning Note - LOVELY Ulloa - 11/28/2024 2:21 PM EDT DC plan SNF: [facility] accepted pt. Tasked to [facility] to start pre-cert. BLS tx cert in [...] Discharge Disposition SNF SNF Name [facility] SNF Accepted? Yes Does the patient need discharge transportation arranged? Yes Transportation Arranged Ambulance Patient choice offered Yes List Provided Yes CarePort List Provided Usp Facility Respiratory Indicator Does the patient currently have home respiratory equipment? No Will the patient need home respiratory equipment upon discharge? No, it is expected that patient will NOT discharge home with respiratory DME needs * PT/OT/CELERY PACKER - Halle Lea OT/Alexsander - 11/28/2024 2:21 [...] using her walker and fell at her [facility] She presented to [place] ED with Rt hip pain. Imaging showed Rt subcapital femoral neck fx. Pt was then transferred to [facility] for higher level of care. On 11/27/24 she underwent Rt hip hemiarthroplasty. She is WBAT RLE. Patient lives in apartment in [facility], uses 4ww at baseline, has own accessible [...] and be able to safely return to [facility]. . Past Surgical History: Procedure Laterality Date CHOLECYSTECTOMY CORONARY STENT PLACEMENT ESOPHAGOSCOPY HEMIARTHROPLASTY HIP Right 11/27/2024 Performed by Kirby Andersen MD at [facility] LAPAROSCOPIC HYSTERECTOMY OOPHORECTOMY OVARIAN CYST SURGERY . Past Medical History: Diagnosis Date CHF (congestive heart failure) ([facility]) Chronic kidney disease Coronary artery disease Dental disease Diabetes mellitus type 2, controlled ([facility]) Dizziness GERD (gastroesophageal reflux disease) Hyperlipidemia Hypertension Myocardial infarction ([facility]) Prolonged emergence from general anesthesia 6 Clicks: [...] None Scoring Daily Activity Raw Score: 15 [facility] G Code Modifier: CK OT Treatment/Interventions: ADL [...] Home Living Type of Home: Assisted living ([facility]) Home Layout: One level Stairs to Enter: 0 Bathroom Shower/Tub: Walk-in shower Bathroom Toilet: Raised (Has toilet riser) Bathroom Equipment: Shower chair, Hand-held shower, Grab bars in shower, Grab bars around toilet, Commode (Uses bedside commode next to bed at night) Home Equipment: 4 Wheeled walker, Wheelchair-manual Other : Patient lives in apartment in [facility], uses 4ww at baseline, has own accessible bathroom with grab bars and shower chair to walk in shower, gets assist for meds and showers, was ind with other ADLs, local dtr assists as needed for shopping/transportation. Prior Function Lives With: Other (Comment) ([facility], lives alone in her own apartment) Receives Help From: (staff assit with meds and shower and as needed for taking out trash if too heavy for patient to put on her rollator. Dtr, Mandy assists with shopping and transportation.) Level of Mobility: Needs assistance with ADLs or functional transfers or gait Homemaking Assistance: Needs assistance Other: Patient lives in apartment in [facility], uses 4ww at baseline, has own accessible [...] Patient will perform bed mobility with Modified [place] Dates: Start: 11/28/24 Expected End: 12/26/24 Description: Goal Description: Disciplines: OT Problem: Dressing LB Dates: Start: 11/28/24 Disciplines: OT Goal: Patient will perform dressing LB with Modified [place] Dates: Start: 11/28/24 Expected End: 12/26/24 Description: [...] Patient will perform toilet transfers with Modified [place] Dates: Start: 11/28/24 Expected End: 12/26/24 Description: Goal Description: Disciplines: OT Problem: Toileting Dates: Start: 11/28/24 Disciplines: OT Goal: Patient will perform toileting with Modified [place] Dates: Start: 11/28/24 Expected End: 12/26/24 Description: Goal Description: Disciplines: OT Problem: Transfers Dates: Start: 11/28/24 Disciplines: OT Goal: Patient will perform transfers with Modified [place] Dates: Start: 11/28/24 Expected End: 12/26/24 Description: Goal Description: Disciplines: OT Occupational Therapy Care Plan (Resolved) There are no resolved problems. Principal Problem: Closed fracture of right hip, initial encounter ([facility]) * PT/OT/CELERY PACKER - Lisa Gonzalez, PT - 11/28/2024 10:43 AM EDT Physical Therapy PT Type of Visit: Medical deferral Reason For Medical Deferral: Off unit (2nd attempt to see pt she is still in echo. Will try back asable.) * PT/OT/CELERY PACKER - Lisa Gonzalez, PT - 11/28/2024 10:42 AM EDT Physical Therapy PT Type of Visit: Medical deferral Reason For Medical Deferral: Off unit (2nd attempt to see pt she is still in echo. Will try back asable.) * PT/OT/CELERY PACKER - Kim Washington OTR/L - 11/28/2024 10:41 [...] Description: INTERVENTIONS: 1. Encourage patient or legal hostess party sales representative to report early pain and ask [...] per policy 9. Teach patient or legal hostess party sales representative interventions for comforting Outcome: Progressing Note: [...] at the bedside 7. Instruct patient/ patient hostess party sales representative about use of safety devices 8. Include patient/ patient hostess party sales representative in decisions related to safety Outcome: [...] Description: INTERVENTIONS: 1. Encourage patient or legal hostess party sales representative to report early pain and ask [...] per policy 9. Teach patient or legal hostess party sales representative interventions for comforting Outcome: Progressing Note: [...] at the bedside 7. Instruct patient/ patient hostess party sales representative about use of safety devices 8. Include patient/ patient hostess party sales representative in decisions related to safety Outcome: Progressing Note: Evaluation of progress towards goal: call light within reach, bed in lowest position, patientwearing nonslip footwear Problem: Knowledge Deficit Goal: Patient/patient hostess party sales representative demonstrates understanding of disease process, treatment [...] Score of =/> 25 or indicated by [facility] Assessment Goal: Patient should be free from fall Description: Interventions: 1. [place] to environment 2. Hourly rounds addressing the [...] non-skid footwear 11. Teach patient and patient hostess party sales representative to maintain environment for safety and [...] (cane, walker) within reach 19. Request patient hostess party sales representative bring adaptive equipment/mobility aids from home or obtain and provide as needed 20. Consult pharmacy regarding effects of med's affecting mobility, cognition, and alternatives 21. Obtain physician order for PT if risk factors associated with mobility are present 22. Obtain physician order for OT as appropriate 23. Utilize diversional activities 24. Educate patient and patient hostess party sales representative how to maintain a safe environment during visitationtimes (notify nurse prior to leaving bedside) 25. Consider appropriateness of medical or non-medical artist 26. Set up voiding schedule as appropriate [...] PLANNING NOTE [facility] ([facility] ; F# ) * Op Note - Kirby Andersen MD - 11/27/2024 12:19 PM EDT ORTHOPAEDIC SURGERY OPERATIVE REPORT Date of Surgery: 11/27/2024 Surgeon: Kirby Andersen MD Customer Care Consultant: Inocencia Kearney PA-C A skilled orthopedic physician business support assistant was needed for assistance during this case [...] hip hemiarthroplasty for femoral neck fracture (CPT 44716) Intraoperative fluoroscopy with surgeon interpretation, less than 1 hour (CPT 24782) Anesthesia: General IV Fluids: Per anesthesia record Tourniquet Time: None Estimated Blood Loss: 150 mL Complications: None Implants: Pipe Biomet Taperloc size 8 high offset femoral stem Pipe Biomet 44 mm femoral head with +0 mm taper Implant Name Type Inv. Item Serial No. Pharmacy Technologist Lot No. LRB No. Used Action STEM FEM 136MM 8MM 133D HI OS TPR TPRLK PPS TI HIP PRFT FULL - SN/A - [id number] Orthopedic ImplantSTEM FEM 136MM 8MM 133D HI OS TPR TPRLK PPS TI HIP PRFT FULL N/A Pipe [employer]omet [id number] Right 1 Implanted INSERT ACTB STD TPR HIP E-2 - SN/A - [id number] Orthopedic Implant INSERT ACTB STD TPR HIP E-2 N/A Pipe [employer]omet [id number] Right 1 Implanted HEAD UNPLR 44MM BIOMR II E-2 HIP COCRMO MDLR - SN/A - [id number] Orthopedic Implant HEAD UNPLR 44MMBIOMR II E-2 HIP COCRMO MDLR N/A [employer]ipe [employer] [id number] Right 1 Implanted Drains: None Specimens: None [...] the canal with the use of a box spinner osteotome and used a curette to remove [...] alert, oriented during assessment. Pt transferred to [facility] from [facility] where pt presented with c/o hip pain after fall. Pt states she tripped over her walker. Pt found to have R hip fracture. Pt will be going to OR today. Patient lives in assisted living apartment [facility] in [place]. Pt reports she uses walker for ambulation. Pt reports she is mostly independent with ADL's but does need assistance with bathing. No current home care outside of [facility] staff that assist her. Pt denied any concern getting or affording medications or food. Pt PCP and pharmacy verified. Pt denied any home oxygen. Pt denied any tobacco, alcohol or illicit drug use. DC Plan will be SNF: per pt and dtr they know pt will need a rehab stay prior to returning to her [place]. Pt/dtr would like [facility] as her 1st choice as pt has [...] living Care Facility Name [facility] in [facility] No Does The Patient Have [...] Yes List Provided Yes CarePort List Provided Usp Facility 3-Midnight Additional Comments (If Applicable) * Plan of Care - Terra Etienne RN - 11/27/2024 9:10 AM EDT Problem: Pain Goal: Patient goal is pain score less than 4, able to rest, and participant in treatment plan as appropriate Description: INTERVENTIONS: 1. Encourage patient or legal hostess party sales representative to report early pain and ask [...] per policy 9. Teach patient or legal hostess party sales representative interventions for comforting Outcome: Progressing Note: [...] at the bedside 7. Instruct patient/ patient hostess party sales representative about use of safety devices 8. Include patient/ patient hostess party sales representative in decisions related to safety Outcome: Progressing Note: Evaluation of progress towards goal: RN implementing the above precautions to maintain pt safety. Pt remains free from falls and injuries since beginning of shift. Call light within reach. Bed rails up x2. Orientation reviewed. Hourly rounded maintained. Proper use of double identifiers used.Standard precautions maintained. * PT/OT/CELERY PACKER - Lisa Gonzalez, PT - 11/27/2024 7:58 AM EDT Physical Therapy PT Type of Visit: Medical deferral Reason For Medical Deferral: Medical procedure ongoing (Pt has pending sx for repair of hip fx.) * PT/OT/CELERY PACKER - PROSPER Mckinley/Alexsander - 11/27/2024 7:26 AM [...] Description: INTERVENTIONS: 1. Encourage patient or legal hostess party sales representative to report early pain and ask [...] per policy 9. Teach patient or legal hostess party sales representative interventions for comforting Outcome: Progressing Note: [...] at the bedside 7. Instruct patient/ patient hostess party sales representative about use of safety devices 8. Include patient/ patient hostess party sales representative in decisions related to safety Outcome: [...] hygiene technique. 7. Identify and instruct patient/patient hostess party sales representative in use of appropriate isolation precautionsfor identified infection/symptoms. 8. Provide and discuss with patient/patient hostess party sales representative on educational MDRO sheet. 9. Encourage and monitor nutritional status daily and consult nursery teacher if indicated. 10. Implement neutropenic guidelines as needed. Outcome: Progressing Note: Evaluation of progress towards goal: monitor for signs and symptoms of infection Problem: Knowledge Deficit Goal: Patient/patient hostess party sales representative demonstrates understanding of disease process, treatment [...] Score of =/> 25 or indicated by [facility] Assessment Goal: Patient should be free from fall Description: Interventions: 1. [place] to environment 2. Hourly rounds addressing the [...] non-skid footwear 11. Teach patient and patient hostess party sales representative to maintain environment for safety and [...] (cane, walker) within reach 19. Request patient hostess party sales representative bring adaptive equipment/mobility aids from home or obtain and provide as needed 20. Consult pharmacy regarding effects of med's affecting mobility, cognition, and alternatives 21. Obtain physician order for PT if risk factors associated with mobility are present 22. Obtain physician order for OT as appropriate 23. Utilize diversional activities 24. Educate patient and patient hostess party sales representative how to maintain a safe environment during visitationtimes (notify nurse prior to leaving bedside) 25. Consider appropriateness of medical or non-medical artist 26. Set up voiding schedule as appropriate (every 2 hours) Outcome: Progressing Note: Evaluation of progress towards goal: hourly rounding, provide assistive device, assist with ambulation documented in this encounter Plan of Treatment DateTypeDepartmentCare Team (Latest Contact Info)Dfzcvrocwni70/26/2025 1:00 PM ESTOffice Visit [facility] [address] [place] [id number] Kirby Andersen MD [address] [place] [address] NameTypePriorityAssociated DiagnosesOrder ScheduleFingerstick glucose checks Point of Care TestingRoutine Type 2 diabetes mellitus with stage 3b chronic kidney disease, with long-term current use of insulin ([facility]) Ordered: 12/01/2024NameTypePriorityAssociated DiagnosesOrder ScheduleReferral to Nursing CareOutpatient ReferralRoutine Closed fracture of right hip, initial encounter ([facility]) Type 2 diabetes mellitus with stage 3b chronic kidney disease, with long-term current use of insulin ([facility]) Ordered: 12/01/2024Referral to Physical TherapyOutpatient ReferralRoutine Closed fracture of right hip, initial encounter ([facility]) Ordered: 12/01/2024Referral to Occupational TherapyOutpatient ReferralRoutine Closed fracture of right hip, initial encounter ([facility]) Ordered: 12/01/2024documented as of this encounter Goals GoalPatient Goal TypeAssociated ProblemsRecent ProgressPatient-Stated?Author <enter goal here> Abbie Holland LSW Note: Evaluation of progress towards goal: [facility] documented as of this encounter Procedures Procedure NamePriorityDate/TimeAssociated DiagnosisCommentsCLINICAL PATHOLOGY BFFWHDTbyhmrl61/13/2025 2:21 PM EDT CLINICAL PATHOLOGY OJFJKHXdftjmw51/13/2025 2:21 PM EDT BEDSIDE QXMTJRIVkxipbk14/13/2025 12:17 PM EDT BEDSIDE PZPBWUJZangxll37/13/2025 8:14 AM EDT CBC WITH AUTO ZTDUSEWUXTZUZvlhcjc62/13/2025 6:02 AM EDT DQBQUGALPPeushzi64/13/2025 6:02 AM EDT COMPREHENSIVE METABOLIC PVBLWWhnvxgg52/13/2025 6:02 AM EDT BEDSIDE QVJBNOUKaddnqw21/12/2025 8:57 PM EDT BEDSIDE TOHEPOEOtdibbx67/12/2025 5:14 PM EDT BEDSIDE BPGESUHDgrfpyn95/12/2025 1:08 PM EDT BEDSIDE NVKUOANAfvzrfi14/12/2025 8:35 AM EDT CBC WITH AUTO SZDJOCPTYOZMHjxkjcz61/12/2025 5:34 AM EDT IMMUNOELECTROPHORESIS FOR THERAPY ULSCLSJPELBuludju19/12/2025 5:34 AM EDT PROTEIN ELECTROPHORESIS, GDMFYUmsembr58/12/2025 5:34 AM EDT KXSYQISWWIjxwgzp39/12/2025 5:34 AM EDT COMPREHENSIVE METABOLIC CBUVSBlfseoa81/12/2025 5:34 AM EDT BEDSIDE WGOYIMKKsbixym95/11/2025 9:41 PM EDT BEDSIDE HFAJVLASxvyaey23/11/2025 4:34 PM EDT BEDSIDE BBUYHMRQrhpljc80/11/2025 12:22 PM EDT BEDSIDE LAQQFYBQglipdq29/11/2025 8:48 AM EDT CBC WITH AUTO PRBRCYEZXHPXAckmdkf49/11/2025 5:32 AM EDT IRON AND TIBCAdd-On11/29/2024 5:32 AM EDT BMGVPVIGJKjmvfgn19/11/2025 5:32 AM EDT FOLATEAdd-On11/29/2024 5:32 AM EDT FERRITINAdd-On11/29/2024 5:32 AM EDT VITAMIN A84Vzh-Cb28/11/2025 5:32 AM EDT COMPREHENSIVE METABOLIC UGVYDIxmdurt85/11/2025 5:32 AM EDT BEDSIDE IGYOUXFEdaqiuc71/10/2025 9:09 PM EDT BEDSIDE ZUVSXRKYldnosf71/10/2025 4:34 PM EDT BEDSIDE PGOJJYDHwirotv01/10/2025 1:50 PM EDT ECHO COMPLETE W GXFRTMKFNmbpslj12/10/2025 10:29 AM EDT PROTEIN CREAT HBAENOqtnqyz13/10/2025 8:18 AM EDT URINE CREATININE,LIWYDIRuywdcw89/10/2025 8:18 AM EDT MICROSCOPIC NBOGJLhkkiqg54/10/2025 8:18 AM EDT UREA RANDOM, YYOVDFmkvbjy78/10/2025 8:18 AM EDT MICROALBUMIN / CREATININE URINE DAHNQVcbiuvi36/10/2025 8:18 AM EDT SODIUM, URINE, ZEXSQYDucakkq93/10/2025 8:18 AM EDT URINALYSISAdd-On11/28/2024 8:18 AM EDT BEDSIDE SFTAEEQNpbueeu58/10/2025 8:09 AM EDT CBC WITH AUTO URPOARAMYORHEttirfz67/10/2025 7:54 AM EDT BMBWCYZBENbumrtg32/10/2025 7:54 AM EDT COMPREHENSIVE METABOLIC CDRGJHpjeksn44/10/2025 7:54 AM EDT US RETROPERITONEAL NXXFUABYANPW08/10/2025 7:41 AM EDT BEDSIDE XGWOOHLTmlbjtr56/09/2025 9:35 PM EDT XR CHEST 1 BXJnztoiq83/09/2025 6:39 PM EDT BEDSIDE KULUIKGDaqtzun90/09/2025 5:00 PM EDT XR HIP RT 2-3 VIEWS W OR WO ZPHFYKLgbvqgo68/09/2025 4:30 PM EDT XR HIP RT 2-3 VIEWS W OR WO NVFPHRJtbmgis86/09/2025 2:30 PM EDT KS PARTIAL HIP PNDMLLNUNIS31/09/2025 12:19 PM EDT RIGHT HIP FX BEDSIDE IHFNXBSMeejoml90/09/2025 10:22 AM EDT BEDSIDE NSLOYLKLhlztxc83/09/2025 8:40 AM EDT PARATHYROID HORMOME, LZJMRFHLFH59/09/2025 5:42 AM EDT VITAMIN D 25 RFCSTKHVpecmrx01/09/2025 5:42 AM EDT CBC (NO DIFF)Rwzlxoi4311/27/2024 5:42 AM EDT URIC ACIDAdd-On11/27/2024 5:42 AM EDT YBKYQAMKPCFzunays48/09/2025 5:42 AM EDT PHOSPHORUSAdd-On11/27/2024 5:42 AM EDT B-TYPE NATRIURETIC PEPTIDEAdd-On11/27/2024 5:42 AM EDT CK TOTALAdd-On11/27/2024 5:42 AM EDT ALBUMINAdd-On11/27/2024 5:42 AM EDT BASIC METABOLIC XIVAYDfbegyk23/09/2025 5:42 AM EDT BEDSIDE IHJVLLDMrwmssn74/08/2025 9:20 PM EDT BEDSIDE URXCCKRAfzciqi63/08/2025 5:[address] HIP RT WO WZUCQEZJ62/08/2025 5:13 PM EDT URINE CREATININE,ATBXNFYKKK85/08/2025 4:45 PM EDT UREA RANDOM, YALVQGKZP04/08/2025 4:45 PM EDT SODIUM, URINE, ZGVKJOOSOA27/08/2025 4:45 PM EDT RAECQWLJIWCIGU10/08/2025 4:45 PM EDT PULSE OXIMETRY, AYGHPesmxvr59/08/2025 4:40 PM EDTECG 12-XFNREHJC67/08/2025 4:39 PM EDT CBC WITH AUTO XUGVJQIHNILKNUVY57/08/2025 4:34 PM EDT IRON AND TIBCAdd-On11/26/2024 4:34 PM EDT VITAMIN D 25 JJTWBXHTRUX35/08/2025 4:34 PM EDT RETICULOCYTESAdd-On11/26/2024 4:34 PM EDT TYPE AND ZLFHRPSPNT84/08/2025 4:34 PM EDT XOEIJDHBVITGQG79/08/2025 4:34 PM EDT B-TYPE NATRIURETIC PEPTIDEAdd-On11/26/2024 4:34 PM EDT FOLATEAdd-On11/26/2024 4:34 PM EDT FERRITINAdd-On11/26/2024 4:34 PM EDT VITAMIN B31Xib-Xq66/08/2025 4:34 PM EDT CK TOTALAdd-On11/26/2024 4:34 PM EDT BASIC METABOLIC XJVIVQTTK16/08/2025 4:34 PM EDT documented in this encounter Results * Clinical Pathology Review (12/01/2024 2:21 PM EDT)ComponentValueRef RangeTest MethodAnalysis TimePerformed AtPathologist SignatureCase ReportClinical Pathology Report ? Case: [id number] ? Authorizing Provider: ??Rodri Bravo MD ?Collected: ? 12/01/2024 1421 ? Ordering Location: ? [facility] ??Received: ?12/01/2024 142 ? - GEN 7 Acute ? Pathologist: ? Randy Campbell MD ? Specimens: ?? 1) - Blood, Venous ? 2) - Blood, Venous ? 12/01/2024 6:59 PM [facility] Diagnosis Hypoalbuminemia with mild increase in acute phase reactants. No monoclonal protein identified. 12/01/2024 6:59 PM [facility] at 1859 EDTSpecimen (Source)Anatomical Location / LateralityCollection Method / VolumeCollection TimeReceived Time Venous blood / Ljgfcpr3212/01/2024 2:21 PM EDT1 2:21 PM EDTVenous blood / Kzbengt3512/01/2024 2:21 PM EDT1 2:21 PM EDT Narrative Authorizing ProviderResult TypeResult StatusRodri Bravo MDPATHOLOGY/CYTOLOGY ORDERABLESFinal ResultPerforming OrganizationAddressCity/State/ZIP CodePhone Number [facility] [address] [place] [phone], * Clinical Pathology Review (12/01/2024 2:21 PM EDT)ComponentValueRef RangeTest MethodAnalysis TimePerformed AtPathologist SignatureCase ReportClinical Pathology Report ? Case: [id number] ? Authorizing Provider: ??Rodri Bravo MD ?Collected: ? 12/01/2024 1421 ? Ordering Location: ? [facility] ??Received: ?12/01/2024 1421 ? - GEN 7 Acute ? Pathologist: ? Randy Campbell MD ? Specimens: ?? 1) - Blood, Venous ? 2) - Blood, Venous ? 12/01/2024 6:59 PM [facility]ORYFinal Diagnosis Hypoalbuminemia with mild increase in acute phase reactants. No monoclonal protein identified. 12/01/2024 6:59 PM [facility] at 1859 EDTSpecimen (Source)Anatomical Location / LateralityCollection Method / VolumeCollection TimeReceived Time Venous blood / Wjidkfi4812/01/2024 2:21 PM EDT1 2:21 PM EDTVenous blood / Pcuxqad0912/01/2024 2:21 PM EDT1 2:21 PM EDT Narrative Authorizing ProviderResult TypeResult StatusRodri Bravo MDPATHOLOGY/CYTOLOGY ORDERABLESFinal ResultPerforming OrganizationAddressCity/State/ZIP CodePhone Number [facility] [address] [place] [address], [place] [phone] * (ABNORMAL) Bedside Glucose *Place/Obtain serum glucose if >500 per glucometer. (12/01/2024 12:17PM EDT)ComponentValueRef RangeTest MethodAnalysis Time Performed AtPathologist SignatureBedside Glucose (POC)280(H)65 - 99 mg/dL 12/01/2024 12:19 PM [facility] LABORATORYSpecimen (Source)Anatomical Location / LateralityCollection Method / VolumeCollection TimeReceived Time arterial/qmpomkuau26/13/2025 12:17 PM EDT1 12:19 PM EDT Narrative Authorizing ProviderResult TypeResult StatusYasmin Goodrich MDPOINT OF CARE TEST ORDERABLESFinal ResultPerforming OrganizationAddressty/State/ZIP CodePhone Number [facility] [address] [place] [address], [place] * (ABNORMAL) Bedside Glucose *Place/Obtain serum glucose if >500 per glucometer. (12/01/2024 8:14 AM EDT)ComponentValueRef RangeTest MethodAnalysis Time Performed AtPathologist SignatureBedside Glucose (POC)200(H)65 - 99 mg/dL 12/01/2024 8:16 AM [facility] LABORATORYSpecimen (Source)Anatomical Location / LateralityCollection Method / VolumeCollection TimeReceived Time arterial/tpktkycez49/13/2025 8:14 AM EDT1 8:16 AM EDT Narrative Authorizing ProviderResult TypeResult StatusYasmin Goodrich MDPOINT OF CARE TEST ORDERABLESFinal ResultPerforming OrganizationAddressty/State/ZIP CodePhone Number [facility] [address] [place] [address], [place] * Magnesium (12/01/2024 6:02 AM EDT)ComponentValueRef RangeTest MethodAnalysis TimePerformed AtPathologist SignatureMAGNESIUM2.11.8 - 2.6 mg/dL12/01/2024 7:22 AM [facility] LABORATORYSpecimen (Source)Anatomical Location / LateralityCollection Method / VolumeCollection TimeReceived Time BloodVenous blood / UnknownVenipuncture / Myvjlpr4012/01/2024 6:02 AM EDT 12/01/2024 6:44 AM EDT Narrative Authorizing ProviderResult TypeResult StatusSumundo QUICK BLOOD ORDERABLES Final ResultPerforming OrganizationAddressCity/State/ZIP CodePhone Number [facility] [address] [place] [address], * (ABNORMAL) Comprehensive metabolic panel (12/01/2024 6:02 AM EDT)Component ValueRef RangeTest MethodAnalysis TimePerformed AtPathologist SignatureSODIUM 881949 - 146 mmol/L1 7:22 AM [facility] POTASSIUM4.63.5 - 5.0 mmol/L1 7:22 AM [facility] VTFYUYZEJWEPVVKHZK78554 - 109 mmol/L1 7:22 AM [facility] LABORATORYCARBON POHVTPG9251 - 32 mmol/L1 7:22 AM [facility] LABORATORYANION GAP85 - 15 mmol/L1 7:22 AM EDT [facility] LABORATORYBLOOD UREA TTOGPIRH07(H)5 - 27 mg/dL 12/01/2024 7:22 AM [facility] LABORATORYCREATININE1.80(H)0.40 - 1.00 mg/dL12/01/2024 7:22 AM [facility] LABORATORYComment: METHOD TRACEABLE TO IDMS BCHEYMXFQWVAMWS353(H)65 - 99 mg/dL12/01/2024 7:22 AM [facility] LABORATORYCALCIUM9.48.5 - 10.5 mg/dL12/01/2024 7:22 AM [facility] LABORATORYTOTAL PROTEIN5.4(L)6.0 - 8.0 g/dL12/01/2024 7:22 AM [facility] LABORATORYALBUMIN3.0(L)3.2 - 5.3 g/dL12/01/2024 7:22 AM [facility] LABORATORYALKALINE KDKFKDDKKWJ6505 - 130 U/L1 7:22 AM [facility] FJAYISBBIVMEE88<=41 U/L1 7:22 AM [facility] WSVXUXXEJVRFI86<=31 U/L1 7:22 AM [facility] LABORATORYBILIRUBIN,TOTAL0.50.3 - 1.2 mg/dL12/01/2024 7:22 AM [facility] LABORATORYEGFR Non-Race Xluusvyoj57(L)>=60 ml/min/1.73sq.m 12/01/2024 7:22 AM [facility] LABORATORYComment: Reported eGFR is based on the CKD-EPI 2020 equation that does not use a race coefficient. Specimen (Source)Anatomical Location / LateralityCollection Method / Volume Collection TimeReceived TimeBloodVenous blood / UnknownVenipuncture / Unknown 12/01/2024 6:02 AM EDT1 6:44 AM EDT Narrative Authorizing ProviderResult TypeResult StatusSusalesa QUICK BLOOD ORDERABLES Final ResultPerforming OrganizationAddressCity/State/ZIP CodePhone Number [facility] [address] [place] [address], * (ABNORMAL) CBC auto differential (12/01/2024 6:02 AM EDT)ComponentValueRef RangeTest MethodAnalysis TimePerformed AtPathologist SignatureWBC5.94 - 11 x10E9/L1 7:01 AM [facility] LABORATORYRBC Count2.39 (L)3.8 - 5.2 X10E12/L1 7:01 AM [facility] Hemoglobin7.9(L)11.7 - 15.5 g/dL12/01/2024 7:01 AM [facility] WGSKNHZPXEQtesfiqajg30.1(L)35 - 47 %12/01/2024 7:01 AM [facility] BHMZJLBJNTXAM7690 - 100 fL12/01/2024 7:01 AM [facility] KHGBXROSFGPIT79.927 - 34 pg12/01/2024 7:01 AM [facility] FSKOWNCCEIRYGE64.032 - 36 g/dL12/01/2024 7:01 AM [facility] NTZFJLPZCJDOX08.411.5 - 15 %12/01/2024 7:01 AM [facility] LABORATORYPlatelet Wemoi498(L)150 - 450 X10E9/L1 7:01 AM [facility] LABORATORYMPV9.27 - 12 fL12/01/2024 7:01 AM [facility] LABORATORYNeutrophils %67.7%12/01/2024 7:01 AM [facility] LABORATORYLymphocytes %12.6%12/01/2024 7:01 AM [facility] LABORATORYMonocytes %12.2%12/01/2024 7:01 AM [facility] LABORATORYEosinophils %6.9%12/01/2024 7:01 AM [facility] LABORATORYBasophils %0.6%12/01/2024 7:01 AM [facility] LABORATORYNeutrophils Absolute (A)4.01.5 - 6.6 10*3/uL 12/01/2024 7:01 AM [facility] LABORATORYLymphocytes Absolute 0.7(L)1.0 - 3.5 10*3/uL12/01/2024 7:01 AM [facility] LABORATORYMonocytes Absolute0.70.0 - 0.9 10*3/uL12/01/2024 7:01 AM [facility] LABORATORYEosinophils Absolute0.40.0 - 0.4 10*3/uL12/01/2024 7:01 AM [facility] LABORATORYBasophils Absolute0.00.0 - 0.2 10*3/uL12/01/2024 7:01 AM [facility] LABORATORYDifferential TypeAUTOMATED IDIDBOYVKJCK84/13/2025 7:01 AM [facility] LABORATORYSpecimen (Source)Anatomical Location / LateralityCollection Method / VolumeCollection TimeReceived TimeBloodVenous blood / UnknownVenipuncture / Ughtmcs6012/01/2024 6:02 AM EDT1 6:44 AM EDT Narrative Authorizing ProviderResult TypeResult StatusYasmin Goodrich MDLAB BLOOD ORDERABLES Final ResultPerforming OrganizationAddressCity/State/ZIP CodePhone Number [facility] [address] [place] [address], [place] [phone] * (ABNORMAL) Bedside Glucose *Place/Obtain serum glucose if >500 per glucometer. (11/30/2024 8:57 PM EDT)ComponentValueRef RangeTest MethodAnalysis Time Performed AtPathologist SignatureBedside Glucose (POC)250(H)65 - 99 mg/dL 11/30/2024 9:02 PM [facility] LABORATORYSpecimen (Source)Anatomical Location / LateralityCollection Method / VolumeCollection TimeReceived Time arterial/wtaebscwo91/12/2025 8:57 PM EDT1 9:02 PM EDT Narrative Authorizing ProviderResult TypeResult Sofia Goodrich MDPOINT OF CARE TEST ORDERABLESFinal ResultPerforming OrganizationAddressCity/State/ZIP CodePhone Number [facility] [address] [place] [address], [place] * (ABNORMAL) Bedside Glucose *Place/Obtain serum glucose if >500 per glucometer. (11/30/2024 5:14 PM EDT)ComponentValueRef RangeTest MethodAnalysis Time Performed AtPathologist SignatureBedside Glucose (POC)287(H)65 - 99 mg/dL 11/30/2024 5:20 PM [facility] LABORATORYSpecimen (Source)Anatomical Location / LateralityCollection Method / VolumeCollection TimeReceived Time arterial//12/2025 5:14 PM EDT1 5:20 PM EDT Narrative Authorizing ProviderResult TypeResult Sofia Goodrich [facility]ENTEROINT OF CARE TEST ORDERABLESFinal ResultPerforming OrganizationAddressty/State/ZIP CodePhone Number [facility] [address] [place] [address], [place] * (ABNORMAL) Bedside Glucose *Place/Obtain serum glucose if >500 per glucometer. (11/30/2024 1:08 PM EDT)ComponentValueRef RangeTest MethodAnalysis Time Performed AtPathologist SignatureBedside Glucose (POC)274(H)65 - 99 mg/dL 11/30/2024 1:14 PM [facility] LABORATORYSpecimen (Source)Anatomical Location / LateralityCollection Method / VolumeCollection TimeReceived Time arterial/gqzkemnlv02/12/2025 1:08 PM EDT1 1:14 PM EDT Narrative Authorizing ProviderResult TypeResult [facility] Hospitallesa [facility] HospitalOINT CARE TEST ORDERABLESFinal ResultPerforming OrganizationAddressty/State/ZIP CodePhone Number [facility] [address] [place] [address], [place] * (ABNORMAL) Bedside Glucose *Place/Obtain serum glucose if >500 per glucometer. (11/30/2024 8:35 AM EDT)ComponentValueRef RangeTest MethodAnalysis Time Performed AtPathologist SignatureBedside Glucose (POC)199(H)65 - 99 mg/dL 11/30/2024 8:41 AM [facility] LABORATORYSpecimen (Source)Anatomical Location / LateralityCollection Method / VolumeCollection TimeReceived Time arterial/jlcjqszzy44/12/2025 8:35 AM EDT1 8:41 AM EDT Narrative Authorizing ProviderMountain View Regional Medical Centerult TypeMountain View Regional Medical Centerult Yuelesa [facility] CARE TEST ORDERABLESFinal ResultPerforming OrganizationAddAllegheny [facility] Hospital/State/[facility] CodePhone Number [facility] [address] [place] [address], [place] * (ABNORMAL) Immunoelectrophoresis for Therapy Monitoring (11/30/2024 5:34 AM EDT)ComponentValueRef RangeTest MethodAnalysis TimePerformed AtPathologist MkjqfxuetNAG29422 - 378 mg/dL12/02/2024 9:35 AM [facility] VHYDQBABBZUGP711618 - 1,741 mg/dL12/02/2024 9:35 AM [facility] UFIEQUSPIQHMV31(L)45 - 281 mg/dL12/02/2024 9:35 AM [facility] LABORATORYFREE KAPPA LT CHAINS4.92(H)0.33 - 1.94 mg/dL12/02/2024 9:35 AM [facility] LABORATORYImmune Profile InterpretationSee Pathology Hiayjh0612/02/2024 9:35 AM [facility] LABORATORYFREE LAMBDA LT CHAINS3.72(H)0.57 - 2.63 mg/dL12/02/2024 9:35 AM [facility] LABORATORYFREE SHERRELL/LAMBD RATIO1.320.26 - 1.6512/02/2024 9:35 AM EDT [facility] LABORATORYSpecimen (Source)Anatomical Location / LateralityCollection Method / VolumeCollection TimeReceived TimeBloodVenous blood / UnknownVenipuncture / Uqabdqw5011/30/2024 5:34 AM EDT1 6:25 AM EDT Narrative Authorizing ProviderResult TypeResult StatusRodri Bravo MDLAB BLOOD ORDERABLES Final ResultPerforming OrganizationAddressCity/State/ZIP CodePhone Number [facility] [address] [place] [address], * (ABNORMAL) Protein electrophoresis, serum (11/30/2024 5:34 AM EDT)Component ValueRef RangeTest MethodAnalysis TimePerformed AtPathologist SignatureTOTAL PROTEIN5.4(L)6.0 - 8.0 g/dL12/02/2024 9:34 AM [facility] LABORATORYALPHA 1 GLOBULIN0.5(H)0.1 - 0.4 g/dL12/02/2024 9:34 AM [facility] LABORATORYALPHA 2 GLOBULIN0.80.4 - 1.1 g/dL12/02/2024 9:34 AM [facility] LABORATORYBETA GLOBULIN0.70.5 - 1.2 g/dL 12/02/2024 9:34 AM [facility] LABORATORYGAMMA GLOBULIN0.60.5 - 1.6 g/dL12/02/2024 9:34 AM [facility] LABORATORYProtein Electrophoresis InterpSee Pathology Gjodic1112/02/2024 9:34 AM [facility] LABORATORYAlbumin2.8(L)3.4 - 5.3 g/dL12/02/2024 9:34 AM EDT [facility] LABORATORYSpecimen (Source)Anatomical Location / LateralityCollection Method / VolumeCollection TimeReceived TimeBloodVenous blood / UnknownVenipuncture / Jxjzapy5311/30/2024 5:34 AM EDT1 6:25 AM EDT Narrative Authorizing ProviderResult TypeResult StatusRodri QUICK BLOOD ORDERABLES Final ResultPerforming OrganizationAddressCity/State/ZIP CodePhone Number [facility] [address] [place] [address], * Magnesium (11/30/2024 5:34 AM EDT)ComponentValueRef RangeTest MethodAnalysis TimePerformed AtPathologist SignatureMAGNESIUM2.11.8 - 2.6 mg/dL11/30/2024 7:09 AM [facility] LABORATORYSpecimen (Source)Anatomical Location / LateralityCollection Method / VolumeCollection TimeReceived Time BloodVenous blood / UnknownVenipuncture / Qsjfijv4311/30/2024 5:34 AM EDT 11/30/2024 6:25 AM EDT Narrative Authorizing ProviderResult TypeResult StatusYasmin Goodrich MDKIOWA COUNTY [facility] BLOOD ORDERABLES Final ResultPerforming OrganizationAddressCity/State/ZIP CodePhone Number [facility] [address] [place] [address], * (ABNORMAL) Comprehensive metabolic panel (11/30/2024 5:34 AM EDT)Component ValueRef RangeTest MethodAnalysis TimePerformed AtPathologist SignatureSODIUM 647411 - 146 mmol/L1 7:09 AM [facility] POTASSIUM5.03.5 - 5.0 mmol/L1 7:09 AM [facility] YNSCRHBHXXMRMKFRBE65109 - 109 mmol/L1 7:09 AM [facility] LABORATORYCARBON OOFRTXN4727 - 32 mmol/L1 7:09 AM [facility] LABORATORYANION GAP75 - 15 mmol/L1 7:09 AM [facility] LABORATORYBLOOD UREA DNJZFTBK58(H)5 - 27 mg/dL 11/30/2024 7:09 AM [facility] LABORATORYCREATININE1.86(H)0.40 - 1.00 mg/dL11/30/2024 7:09 AM [facility] LABORATORYComment: METHOD TRACEABLE TO IDPA BMTBRIMOSUGEMAN754(H)65 - 99 mg/dL11/30/2024 7:09 AM [facility] LABORATORYCALCIUM9.58.5 - 10.5 mg/dL11/30/2024 7:09 AM [facility] LABORATORYTOTAL PROTEIN5.4(L)6.0 - 8.0 g/dL11/30/2024 7:09 AM [facility] LABORATORYALBUMIN3.1(L)3.2 - 5.3 g/dL11/30/2024 7:09 AM [facility] LABORATORYALKALINE ENDNVURNSYN1383 - 130 U/L1 7:09 AM [facility] OEAIRETEQJIXB89<=41 U/L1 7:09 AM [facility] QQWYXPITQMMDN84<=31 U/L1 7:09 AM [facility] LABORATORYBILIRUBIN,TOTAL0.60.3 - 1.2 mg/dL11/30/2024 7:09 AM [facility] LABORATORYEGFR Non-Race Pptkgrftg00(L)>=60 ml/min/1.73sq.m 11/30/2024 7:09 AM [facility] LABORATORYComment: Reported eGFR is based on the CKD-EPI 2020 equation that does not use a race coefficient. Specimen (Source)Anatomical Location / LateralityCollection Method / Volume Collection TimeReceived TimeBloodVenous blood / UnknownVenipuncture / Unknown 11/30/2024 5:34 AM EDT1 6:25 AM EDT Narrative Authorizing ProviderResult TypeResult StatusSumundo QUICK BLOOD ORDERABLES Final ResultPerforming OrganizationAddressCity/State/ZIP CodePhone Number [facility] [address] [place] [address], * (ABNORMAL) CBC auto differential (11/30/2024 5:34 AM EDT)ComponentValueRef RangeTest MethodAnalysis TimePerformed AtPathologist SignatureWBC8.14 - 11 x10E9/L1 7:53 AM [facility] LABORATORYRBC Count2.53 (L)3.8 - 5.2 X10E12/L1 7:53 AM [facility] Hemoglobin8.5(L)11.7 - 15.5 g/dL11/30/2024 7:53 AM [facility] EJGODTHNIYCddugvrcuf46.7(L)35 - 47 %11/30/2024 7:53 AM [facility] WTDDODSLCVOKQ8846 - 100 fL11/30/2024 7:53 AM [facility] ABEKZJMFLOMZT34.627 - 34 pg11/30/2024 7:53 AM [facility] SWLZRKHTPBDFRA76.432 - 36 g/dL11/30/2024 7:53 AM [facility] VYWOKQBOBETMK14.411.5 - 15 %11/30/2024 7:53 AM [facility] LABORATORYPlatelet Atjms716(L)150 - 450 X10E9/L1 7:53 AM EDT [facility] LABORATORYMPV9.87 - 12 fL11/30/2024 7:53 AM [facility] LABORATORYNeutrophils %80.4%11/30/2024 7:53 AM [facility] LABORATORYComment:This is an appended report. These results have been appended to a previously preliminary verified report.Lymphocytes % 5.6%11/30/2024 7:53 AM [facility] LABORATORYComment:This is an appended report. These results have been appended to a previously preliminary verified report.Monocytes %9.9%11/30/2024 7:53 AM [facility] LABORATORYComment:This is an appended report. These results have been appended to a previously preliminary verified report.Eosinophils % 3.8%11/30/2024 7:53 AM [facility] LABORATORYComment:This is an appended report. These results have been appended to a previously preliminary verified report.Basophils %0.3%11/30/2024 7:53 AM [facility] LABORATORYComment:This is an appended report. These results have been appended to a previously preliminary verified report.Neutrophils Absolute (A)6.51.5 - 6.6 10*3/uL11/30/2024 7:53 AM [facility] LABORATORYComment:This is an appended report. These results have been appended to a previously preliminary verified report.Lymphocytes Absolute0.5(L)1.0 - 3.5 10*3/uL11/30/2024 7:53 AM [facility] LABORATORYComment: This is an appended report. These results have been appended to a previously preliminary verified report.Monocytes Absolute0.80.0 - 0.9 10*3/uL11/30/2024 7:53 AM [facility] LABORATORYComment:This is an appended report. These results have been appended to a previously preliminary verified report.Eosinophils Absolute0.30.0 - 0.4 10*3/uL11/30/2024 7:53 AM [facility] LABORATORYComment:This is an appended report. These results have been appended to a previously preliminary verified report.Basophils Absolute0.00.0 - 0.2 10*3/uL11/30/2024 7:53 AM [facility] LABORATORYComment:This is an appended report. These results have been appended to a previously preliminary verified report.Differential TypeAUTOMATED ZMWVXCUAGBVM11/12/2025 7:53 AM [facility] LABORATORYComment: This is an appended report. These results have been appended to a previously preliminary verified report.Specimen (Source)Anatomical Location / Laterality Collection Method / VolumeCollection TimeReceived TimeBloodVenous blood / UnknownVenipuncture / Ghxsrtx3811/30/2024 5:34 AM EDT1 6:25 AM EDT Narrative Authorizing ProviderResult TypeResult Sofia Goodrich MDLAB BLOOD ORDERABLES Final ResultPerforming OrganizationAddressCity/State/ZIP CodePhone Number [facility] [address] [place] [address], [place] [phone] * (ABNORMAL) Bedside Glucose *Place/Obtain serum glucose if >500 per glucometer. (11/29/2024 9:41 PM EDT)ComponentValueRef RangeTest MethodAnalysis Time Performed AtPathologist SignatureBedside Glucose (POC)236(H)65 - 99 mg/dL 11/29/2024 10:00 PM [facility] LABORATORYSpecimen (Source)Anatomical Location / LateralityCollection Method / VolumeCollection TimeReceived Time arterial/aemltmapf76/11/2025 9:41 PM EDT1 10:00 PM EDT Narrative Authorizing ProviderResult TypeResult Sofia Goodrich MDPOINT OF CARE TEST ORDERABLESFinal ResultPerforming OrganizationAddressCity/State/ZIP CodePhone Number [facility] [address] [place] [address], [place] * (ABNORMAL) Bedside Glucose *Place/Obtain serum glucose if >500 per glucometer. (11/29/2024 4:34 PM EDT)ComponentValueRef RangeTest MethodAnalysis Time Performed AtPathologist SignatureBedside Glucose (POC)234(H)65 - 99 mg/dL 11/29/2024 4:36 PM [facility] LABORATORYSpecimen (Source)Anatomical Location / LateralityCollection Method / VolumeCollection TimeReceived Time arterial/xykjjxjzw41/11/2025 4:34 PM EDT1 4:36 PM EDT Narrative Authorizing ProviderResult TypeResult StatusYasmin Goodrich MDPOINT OF CARE TEST ORDERABLESFinal ResultPerforming OrganizationAddressty/State/ZIP CodePhone Number [facility] [address] [place] [address], * (ABNORMAL) Bedside Glucose *Place/Obtain serum glucose if >500 per glucometer. (11/29/2024 12:22PM EDT)ComponentValueRef RangeTest MethodAnalysis Time Performed AtPathologist SignatureBedside Glucose (POC)239(H)65 - 99 mg/dL 11/29/2024 12:28 PM [facility] LABORATORYSpecimen (Source)Anatomical Location / LateralityCollection Method / VolumeCollection TimeReceived Time arterial/ninlatdup09/11/2025 12:22 PM EDT1 12:28 PM EDT Narrative Authorizing ProviderResult TypeResult StatusYasmin [facility] MDPOINT OF CARE TEST ORDERABLESFinal ResultPerforming OrganizationAddressty/State/ZIP CodePhone Number [facility] [address] [place] [address], [place] * (ABNORMAL) Bedside Glucose *Place/Obtain serum glucose if >500 per glucometer. (11/29/2024 8:48 AM EDT)ComponentValueRef RangeTest MethodAnalysis Time Performed AtPathologist SignatureBedside Glucose (POC)201(H)65 - 99 mg/dL 11/29/2024 8:53 AM [facility] LABORATORYSpecimen (Source)Anatomical Location / LateralityCollection Method / VolumeCollection TimeReceived Time arterial/vkozgabvd81/11/2025 8:48 AM EDT1 8:53 AM EDT Narrative Authorizing ProviderResult TypeResult StatusYasmin [facility] MDPOINT OF CARE TEST ORDERABLESFinal ResultPerforming OrganizationAddAllegheny [facility]/State/ZIP CodePhone Number [facility] [address] [place] [address], [place] * Vitamin B12 (11/29/2024 5:32 AM EDT)ComponentValueRef RangeTest MethodAnalysis TimePerformed AtPathologist SignatureVITAMIN [id number] - 914 pg/mL11/29/2024 8:51 PM [facility] LABORATORYSpecimen (Source)Anatomical Location / LateralityCollection Method / VolumeCollection TimeReceived Time BloodVenous blood / UnknownVenipuncture / Yofaqob8211/29/2024 5:32 AM EDT 11/29/2024 5:42 AM EDT Narrative Authorizing ProviderResult TypeResult StatusYasmin QUICK BLOOD ORDERABLES Final ResultPerforming OrganizationAddressCity/State/ZIP CodePhone Number [facility] [address] [place] [address], * Folate (11/29/2024 5:32 AM EDT)ComponentValueRef RangeTest MethodAnalysis Time Performed AtPathologist SignatureFOLIC ACID17.9>5.8 ng/mL11/29/2024 8:50 PM [facility] LABORATORYSpecimen (Source)Anatomical Location / LateralityCollection Method / VolumeCollection TimeReceived TimeBloodVenous blood / UnknownVenipuncture / Eoryyve9811/29/2024 5:32 AM EDT1 5:42 AM EDT Narrative Authorizing ProviderResult TypeResult StatusYamsin Goodrich MDLAB BLOOD ORDERABLES Final ResultPerforming OrganizationAddressCity/State/ZIP CodePhone Number [facility] [address] [place] [address], * Ferritin (11/29/2024 5:32 AM EDT)ComponentValueRef RangeTest MethodAnalysis TimePerformed AtPathologist TjmcxdmuySQCFLOUA0215 - 307 ng/mL11/29/2024 8:47 PM [facility] LABORATORYSpecimen (Source)Anatomical Location / LateralityCollection Method / VolumeCollection TimeReceived TimeBloodVenous blood / UnknownVenipuncture / Ceytdhg2311/29/2024 5:32 AM EDT1 5:42 AM EDT Narrative Authorizing ProviderResult TypeResult StatusYasmin QUICK BLOOD ORDERABLES Final ResultPerforming OrganizationAddressCity/State/ZIP CodePhone Number [facility] [address] [place] [address], [place] [phone] * (ABNORMAL) Iron and TIBC (11/29/2024 5:32 AM EDT)ComponentValueRef RangeTest MethodAnalysis TimePerformed AtPathologist OhbhpcirgWWOX81(L)50 - 170 ug/dL 11/29/2024 7:38 PM [facility] LPIPAJKUWMYKJKFSWTKHK107985 - 336 mg/dL11/29/2024 7:38 PM [facility] LABORATORYIRON BINDING 024922 - 425 ug/dL11/29/2024 7:38 PM [facility] IRON SATURATION4(L)15 - 50 % XPVJGMLBFM36/11/2025 7:38 PM [facility] LABORATORYSpecimen (Source)Anatomical Location / LateralityCollection Method / VolumeCollection TimeReceived TimeBloodVenous blood / Unknown Venipuncture / Omymdhs1011/29/2024 5:32 AM EDT1 5:42 AM EDT Narrative Authorizing ProviderResult TypeResult StatusYasmin QUICK BLOOD ORDERABLES Final ResultPerforming OrganizationAddressCity/State/ZIP CodePhone Number [facility] [address] [place] [address], * Magnesium (11/29/2024 5:32 AM EDT)ComponentValueRef RangeTest MethodAnalysis TimePerformed AtPathologist SignatureMAGNESIUM2.21.8 - 2.6 mg/dL11/29/2024 6:21 AM [facility] LABORATORYSpecimen (Source)Anatomical Location / LateralityCollection Method / VolumeCollection TimeReceived Time BloodVenous blood / UnknownVenipuncture / Uosbiff3311/29/2024 5:32 AM EDT 11/29/2024 5:42 AM EDT Narrative Authorizing ProviderResult TypeResult StatusYasmin QUICK BLOOD ORDERABLES Final ResultPerforming OrganizationAddressCity/State/ZIP CodePhone Number [facility] [address] [place] [address], [place] [phone] * (ABNORMAL) Comprehensive metabolic panel (11/29/2024 5:32 AM EDT)Component ValueRef RangeTest MethodAnalysis TimePerformed AtPathologist SignatureSODIUM 332731 - 146 mmol/L1 6:21 AM [facility] POTASSIUM5.2(H)3.5 - 5.0 mmol/L1 6:21 AM [facility] MEZKTRWNXSGBMOGBQD36373 - 109 mmol/L1 6:21 AM [facility] LABORATORYCARBON IPFYLYA8879 - 32 mmol/L1 6:21 AM [facility] LABORATORYANION GAP75 - 15 mmol/L1 6:21 AM [facility] LABORATORYBLOOD UREA WVYMFCAD15(H)5 - 27 mg/dL 11/29/2024 6:21 AM [facility] LABORATORYCREATININE2.28(H)0.40 - 1.00 mg/dL11/29/2024 6:21 AM [facility] LABORATORYComment: METHOD TRACEABLE TO IDMS GOSDZMZXUNHPSRL307(H)65 - 99 mg/dL11/29/2024 6:21 AM [facility] LABORATORYCALCIUM9.58.5 - 10.5 mg/dL11/29/2024 6:21 AM [facility] LABORATORYTOTAL PROTEIN5.5(L)6.0 - 8.0 g/dL11/29/2024 6:21 AM [facility] LABORATORYALBUMIN3.1(L)3.2 - 5.3 g/dL11/29/2024 6:21 AM [facility] LABORATORYALKALINE PYXLAYOEBGS5454 - 130 U/L1 6:21 AM [facility] BGRTORLMTTHHJ30(H)<=41 U/L1 6:21 AM [facility] THJEAMTKJRFAN94(H)<=31 U/L1 6:21 AM [facility] LABORATORYBILIRUBIN,TOTAL0.40.3 - 1.2 mg/dL11/29/2024 6:21 AM [facility] LABOR[facility]ORYEGFR Non-Race Dtoqcerxv50(L)>=60 ml/min/1.73sq.m 11/29/2024 6:21 AM [facility] LABORATORYComment: Reported eGFR is based on the CKD-EPI 2020 equation that does not use a race coefficient. Specimen (Source)Anatomical Location / LateralityCollection Method / Volume Collection TimeReceived TimeBloodVenous blood / UnknownVenipuncture / Unknown 11/29/2024 5:32 AM EDT1 5:42 AM EDT Narrative Authorizing ProviderResult TypeResult StatusSumundo QUICK BLOOD ORDERABLES Final ResultPerforming OrganizationAddressCity/State/ZIP CodePhone Number [facility] [address] [place] [address], * (ABNORMAL) CBC auto differential (11/29/2024 5:32 AM EDT)ComponentValueRef RangeTest MethodAnalysis TimePerformed AtPathologist SignatureWBC7.04 - 11 x10E9/L1 6:08 AM [facility] LABORATORYRBC Count2.50 (L)3.8 - 5.2 X10E12/L1 6:08 AM [facility] Hemoglobin8.2(L)11.7 - 15.5 g/dL11/29/2024 6:08 AM [facility] EPUTLQQYAJEqpynkrkbj32.2(L)35 - 47 %11/29/2024 6:08 AM [facility] GIYNXJLRWOYUA8134 - 100 fL11/29/2024 6:08 AM [facility] BCQCDOJVGSBGG72.927 - 34 pg11/29/2024 6:08 AM [facility] TKGAOCXWHWJNUR62.032 - 36 g/dL11/29/2024 6:08 AM [facility] GCPZCMHKAHQKQ36.311.5 - 15 %11/29/2024 6:08 AM [facility] LABORATORYPlatelet Stwmj841(L)150 - 450 X10E9/L1 6:08 AM EDT [facility] LABORATORYMPV9.57 - 12 fL11/29/2024 6:08 AM [facility] LABORATORYNeutrophils %70.5%11/29/2024 6:08 AM [facility] LABORATORYLymphocytes %12.5%11/29/2024 6:08 AM [facility] LABORATORYMonocytes %10.7%11/29/2024 6:08 AM [facility] LABORATORYEosinophils %5.8%11/29/2024 6:08 AM [facility] LABORATORYBasophils %0.5%11/29/2024 6:08 AM [facility] LABORATORYNeutrophils Absolute (A)5.01.5 - 6.6 10*3/uL 11/29/2024 6:08 AM [facility] LABORATORYLymphocytes Absolute 0.9(L)1.0 - 3.5 10*3/uL11/29/2024 6:08 AM [facility] LABORATORYMonocytes Absolute0.80.0 - 0.9 10*3/uL11/29/2024 6:08 AM [facility] LABORATORYEosinophils Absolute0.40.0 - 0.4 10*3/uL11/29/2024 6:08 AM [facility] LABORATORYBasophils Absolute0.00.0 - 0.2 10*3/uL11/29/2024 6:08 AM [facility] LABORATORYDifferential TypeAUTOMATED ZTYYRFKYTEGH60/11/2025 6:08 AM [facility] LABORATORYSpecimen (Source)Anatomical Location / LateralityCollection Method / VolumeCollection TimeReceived TimeBloodVenous blood / UnknownVenipuncture / Wujzekb2311/29/2024 5:32 AM EDT1 5:42 AM EDT Narrative Authorizing ProviderResult TypeResult StatusSusalesa QUICK BLOOD ORDERABLES Final ResultPerforming OrganizationAddressCity/State/ZIP CodePhone Number [facility] [address] [place] [address], * (ABNORMAL) Bedside Glucose *Place/Obtain serum glucose if >500 per glucometer. (11/28/2024 9:09 PM EDT)ComponentValueRef RangeTest MethodAnalysis Time Performed AtPathologist SignatureBedside Glucose (POC)223(H)65 - 99 mg/dL 11/28/2024 9:18 PM [facility] LABORATORYSpecimen (Source)Anatomical Location / LateralityCollection Method / VolumeCollection TimeReceived Time arterial/eruqeyhcs33/10/2025 9:09 PM EDT1 9:18 PM EDT Narrative Authorizing ProviderResult TypeResult StatusAnderson [facility] TEST ORDERABLESFinal ResultPerforming OrganizationAddressty/State/ZIP CodePhone Number [facility] [address] [place] [address], [place] * (ABNORMAL) Bedside Glucose *Place/Obtain serum glucose if >500 per glucometer. (11/28/2024 4:34 PM EDT)ComponentValueRef RangeTest MethodAnalysis Time Performed AtPathologist SignatureBedside Glucose (POC)271(H)65 - 99 mg/dL 11/28/2024 4:37 PM [facility] LABORATORYSpecimen (Source)Anatomical Location / LateralityCollection Method / VolumeCollection TimeReceived Time arterial/lizwhwjqu33/10/2025 4:34 PM EDT1 4:37 PM EDT Narrative Authorizing ProviderResult TypeResult [facility] HospitalOINT [facility] CARE TEST ORDERABLESFinal ResultPerforming OrganizationAddressty/State/ZIP CodePhone Number [facility] [address] [place] [address], [place] * (ABNORMAL) Bedside Glucose *Place/Obtain serum glucose if >500 per glucometer. (11/28/2024 1:50 PM EDT)ComponentValueRef RangeTest MethodAnalysis Time Performed AtPathologist SignatureBedside Glucose (POC)234(H)65 - 99 mg/dL 11/28/2024 1:51 PM [facility] LABORATORYSpecimen (Source)Anatomical Location / LateralityCollection Method / VolumeCollection TimeReceived Time arterial/nkrzhgafy45/10/2025 1:50 PM EDT1 1:51 PM EDT Narrative Authorizing ProviderResult TypeResult StatusSusan Joleen MDPOINT OF CARE TEST ORDERABLESFinal ResultPerforming OrganizationAddressCity/State/ZIP CodePhone Number [facility] [address] [place] [address], [place] * Echo complete W/ contrast (11/28/2024 10:29 AM EDT)ComponentValueRef RangeTest MethodAnalysis TimePerformed AtPathologist AkmxjdpqaRC4804 - 44 %XCELERALVIDd 4.404.42 - 6.14 cmXCELERALVIDs2.802.61 - 3.96 cmXCELERAIVS1.100.6 - 1.1 cm XCELERAPW1.100.6 - 1.1 cmXCELERATDI7.01cm/sXCELERAMV TDI E' (medial)5.43cm/s XCELERALA Volume Index51.2mL/f5UVEXAOMP/A ratio1.31XCELERAE wave deceleration ulve733.00msecXCELERAMV Peak E Qvt837.00cm/sXCELERAMV Peak A Vew354.00cm/s XCELERALA size4.10cmXCELERAAortic root3.50cmXCELERALA amkyvu74.02cf2PNHGWYFVW diastolic dimension (basal)32.9gjQZNGWOFXFDXP3.28cmXCELERAAV peak ymv706.00 cm/sXCELERALVOT peak vel1.11m/sXCELERAAV VTI33.00cmXCELERALVOT peak VTI32.80cm XCELERAAV mean gradient4.00mmHgXCELERAAV peak gradient6.55mmHgXCELERAMV pressure 1/2 time69.00msXCELERAMV valve area p 1/2 method3.06at6KYNVSJPLV peak gradient4.24mmHgXCELERAInferior Vena Cava Diameter2.00cmXCELERALV ESV A2C 103.00mLXCELERALV ESV A4C94.40mLXCELERALV RWT 2D50.00XCELERAAV Velocity Ratio 0.99XCELERAIVC huukohsa96drOLMBEFTOdaf Ventricle Tyxm530.194807053373701q XCELERAInterventricular Septum Diastolic Thickness by 1R52viUDUMAOHHhh. RA twcciiwz2yeHbDGUWSUYXR area16.2nw1CGYWFAREGSERG-9.09XCELERAZLVIDD-1.69XCELERA Energy loss index17.98XCELERAAnatomical RegionLateralityModalityChestN/A UltrasoundSpecimen (Source)Anatomical Location [...] segments are normal. Authorizing ProviderResult TypeResult Status[facility] ECHO ORDERABLESFinal Result * (ABNORMAL) Urinalysis (11/28/2024 8:18 AM EDT)ComponentValueRef RangeTest MethodAnalysis TimePerformed AtPathologist SignatureCOLORYellowYellow 11/28/2024 6:06 PM [facility] LABORATORYTURBIDITYClearClear 11/28/2024 6:06 PM [facility] LABORATORYSPECIFIC GRAVITY1.018 1.003 - 1.8737011/28/2024 6:06 PM [facility] LABORATORYNITRITE AugmkjebWofcoghg38/10/2025 6:06 PM [facility] PH,URINE5.55.0 - 8.510 6:06 PM [facility] LEUKOCYTE PXUQSISZLrwjgubmKjvvbbjs01/10/2025 6:06 PM [facility] PQBZXRQKSSPRSNKMA83 mg/dL(A)Nkjdcsnd39/10/2025 6:06 PM [facility] LABORATORYKETONES (URINE)KqelhuytGiohpwnn11/10/2025 6:06 PM [facility] LABORATORYUROBILINOGEN<1.1 eu/dL<1.1 eu/dL 11/28/2024 6:06 PM [facility] LABORATORYBILIRUBIN (URINE) RsdwvkktUianvqve56/10/2025 6:06 PM [facility] BLOOD/HGBSmall(A)Rbuadzly66/10/2025 6:06 PM [facility] LABORATORYHYALINE CASTS10 - 210 6:06 PM [facility] LABORATORYMUCOUSPresent(A)None11/28/2024 6:06 PM [facility] LABORATORYR.B.CELLS<10 - 6:06 PM [facility] LABORATORYSQUAMOUS NNVQHDAYZL01 - 6:06 PM [facility] LABORATORYW.B.CELLS29(H)0 - 6:06 PM [facility] LABORATORYGLUCOSE (URINE)500 mg/dL(A)Ldkqnozp29/10/2025 6:06 PM EDT [facility] LABORATORYSpecimen (Source)Anatomical Location / LateralityCollection Method / VolumeCollection TimeReceived TimeUrine (Urine, Indwelling Catheter)11/28/2024 8:18 AM EDT1 9:13 AM EDT Narrative [facility] - 11/28/2024 6:06 PM EDT Urine received without preservative. Delays in transport may affect results. Interpret with caution. A clinical correlation is recommended. Authorizing ProviderResult TypeResult StatusSumundo CURRIE ORDERABLESFinal ResultPerforming OrganizationAddressCity/State/ZIP CodePhone Number [facility] [address] [place] [address], * (ABNORMAL) Microscopic, urine (11/28/2024 8:18 AM EDT)ComponentValueRef Range Test MethodAnalysis TimePerformed AtPathologist SignatureMUCOUSPresent(A)None 11/28/2024 10:10 AM [facility] LABORATORYR.B.CELLS10 - 5 11/28/2024 10:10 AM [facility] LABORATORYW.B.CELLS25(H)0 - 5 11/28/2024 10:10 AM [facility] LABORATORYSpecimen (Source) Anatomical Location / LateralityCollection Method / VolumeCollection Time Received TimeUrine (Urine, Indwelling Catheter)11/28/2024 8:18 AM EDT 11/28/2024 9:05 AM EDT Narrative Authorizing ProviderResult TypeResult Ricardo CURRIE ORDERABLES Final ResultPerforming OrganizationAddressty/State/ZIP CodePhone Number [facility] [address] [place] [address], * Sodium, urine, random (11/28/2024 8:18 AM EDT)ComponentValueRef RangeTest MethodAnalysis TimePerformed AtPathologist SignatureURINE SODIUM,EYVAFN30 mmol/L1 10:18 AM [facility] LABORATORYSpecimen (Source)Anatomical Location / LateralityCollection Method / VolumeCollection TimeReceived TimeUrine (Urine, Indwelling Catheter)11/28/2024 8:18 AM EDT 11/28/2024 9:13 AM EDT Narrative Authorizing ProviderResult TypeResult Ricardo CURRIE ORDERABLES Final ResultPerforming OrganizationAddressCity/State/ZIP CodePhone Number [facility] [address] [place] [address], [place] [phone] * Urea random, urine (11/28/2024 8:18 AM EDT)ComponentValueRef RangeTest Method Analysis TimePerformed AtPathologist SignatureURINE UREA NITROGEN,ATSTDN592 mg/dL11/28/2024 10:18 AM [facility] LABORATORYSpecimen (Source)Anatomical Location / LateralityCollection Method / VolumeCollection TimeReceived TimeUrine (Urine, Indwelling Catheter)11/28/2024 8:18 AM EDT 11/28/2024 9:13 AM EDT Narrative Authorizing ProviderResult TypeResult Ricardo CURRIE ORDERABLES Final ResultPerforming OrganizationAddressty/State/ZIP CodePhone Number [facility] [address] [place] [address], [place] [phone] * Urine Creatinine,random (11/28/2024 8:18 AM EDT)ComponentValueRef RangeTest MethodAnalysis TimePerformed AtPathologist SignatureURINE CREATININE,RDM85.13 mg/dL11/28/2024 10:11 AM [facility] LABORATORYSpecimen (Source)Anatomical Location / LateralityCollection Method / VolumeCollection TimeReceived TimeUrine (Urine, Indwelling Catheter)11/28/2024 8:18 AM EDT 11/28/2024 9:05 AM EDT Narrative Authorizing ProviderResult TypeResult StatusDane CURRIE ORDERABLES Final ResultPerforming OrganizationAddressCity/State/ZIP CodePhone Number [facility] [address] [place] [address], [place] [phone] * (ABNORMAL) Protein creat ratio (11/28/2024 8:18 AM EDT)ComponentValueRef Range Test MethodAnalysis TimePerformed AtPathologist SignatureURINE PROTEIN, RANDOM (MG/L)1,270(H)<120 mg/L1 10:18 AM [facility] LABORATORYURINE CREATININE,RDM83.62mg/dL11/28/2024 10:18 AM [facility] LABORATORYU/PRO/ASSISTED LIVING ASSISTANT RATIO CALC1.52(H)<=0. 10:18 AM EDT [facility] LABORATORYSpecimen (Source)Anatomical Location / LateralityCollection Method / VolumeCollection TimeReceived TimeUrine (Urine, Indwelling Catheter)11/28/2024 8:18 AM EDT1 9:13 AM EDT Narrative [facility] - 11/28/2024 10:18 AM EDT Nephrotic Syndrome is associated with ratios >3.5 Authorizing ProviderResult TypeResult StatusYasmin CURRIE ORDERABLESFinal ResultPerforming OrganizationAddressCity/State/ZIP CodePhone Number [facility] [address] [place] [address], [place] [phone] * (ABNORMAL) Microalbumin - Albumin: Creatinine Urine Ratio (11/28/2024 8:18 AM EDT)ComponentValueRef RangeTest MethodAnalysis TimePerformed AtPathologist SignatureURINE CREATININE,RDM83.62mg/dL11/28/2024 10:18 AM [facility] LABORATORYMALB/CREAT XJJMP516.3(H)0.0 - 30.0 mg/g1 10:18 AM [facility] LABORATORYMICROALBUMIN, URINE22.6(H)0.0 - 1.9 mg/dL11/28/2024 10:18 AM [facility] LABORATORYSpecimen (Source)Anatomical Location / LateralityCollection Method / VolumeCollection TimeReceived TimeUrine (Urine, Indwelling Catheter)11/28/2024 8:18 AM EDT 11/28/2024 9:13 AM EDT Narrative Authorizing ProviderResult TypeResult StatusYasmin CURRIE ORDERABLESFinal ResultPerforming OrganizationAddressCity/State/ZIP CodePhone Number [facility] [address] [place] [address], [place] [phone] * (ABNORMAL) Bedside Glucose *Place/Obtain serum glucose if >500 per glucometer. (11/28/2024 8:09 AM EDT)ComponentValueRef RangeTest MethodAnalysis Time Performed AtPathologist SignatureBedside Glucose (POC)204(H)65 - 99 mg/dL 11/28/2024 8:17 AM [facility] LABORATORYSpecimen (Source)Anatomical Location / LateralityCollection Method / VolumeCollection TimeReceived Time arterial/aiwhbmotx45/10/2025 8:09 AM EDT1 8:17 AM EDT Narrative Authorizing ProviderResult TypeResult Sofia Goodrich MDPOINT OF CARE TEST ORDERABLESFinal ResultPerforming OrganizationAddressCity/State/ZIP CodePhone Number [facility] [address] [place] [address], [place] * Magnesium (11/28/2024 7:54 AM EDT)ComponentValueRef RangeTest MethodAnalysis TimePerformed AtPathologist SignatureMAGNESIUM2.31.8 - 2.6 mg/dL11/28/2024 8:29 AM [facility] LABORATORYSpecimen (Source)Anatomical Location / LateralityCollection Method / VolumeCollection TimeReceived Time BloodVenous blood / UnknownVenipuncture / Clrizcp7811/28/2024 7:54 AM EDT 11/28/2024 8:06 AM EDT Narrative Authorizing ProviderResult TypeResult StatusYasmin QUICK BLOOD ORDERABLES Final ResultPerforming OrganizationAddressCity/State/ZIP CodePhone Number [facility] [address] [place] [address], * (ABNORMAL) Comprehensive metabolic panel (11/28/2024 7:54 AM EDT)Component ValueRef RangeTest MethodAnalysis TimePerformed AtPathologist SignatureSODIUM 116314 - 146 mmol/L1 8:29 AM [facility] POTASSIUM5.2(H)3.5 - 5.0 mmol/L1 8:29 AM [facility] JXVVTLNSAGPOSHXYSD85758 - 109 mmol/L1 8:29 AM [facility] LABORATORYCARBON OVGTNHA3892 - 32 mmol/L1 8:29 AM [facility] LABORATORYANION GAP85 - 15 mmol/L1 8:29 AM EDT [facility] LABORATORYBLOOD UREA WIRJSZZL70(H)5 - 27 mg/dL 11/28/2024 8:29 AM [facility] LABORATORYCREATININE2.45(H)0.40 - 1.00 mg/dL11/28/2024 8:29 AM [facility] LABORATORYComment: METHOD TRACEABLE TO IDMS WQHDQNEAPCMPDJD648(H)65 - 99 mg/dL11/28/2024 8:29 AM [facility] LABORATORYCALCIUM9.18.5 - 10.5 mg/dL11/28/2024 8:29 AM [facility] LABORATORYTOTAL PROTEIN5.7(L)6.0 - 8.0 g/dL11/28/2024 8:29 AM [facility] LABORATORYALBUMIN3.23.2 - 5.3 g/dL11/28/2024 8:29 AM [facility] LABORATORYALKALINE UUTBFFFXZKY81332 - 130 U/L1 8:29 AM [facility] PBBVEKUAVAAZR973(H)<=41 U/L1 8:29 AM [facility] IHYTIOVENSZYV056(H)<=31 U/L1 8:29 AM [facility] LABORATORYBILIRUBIN,TOTAL0.40.3 - 1.2 mg/dL11/28/2024 8:29 AM [facility] LABORATORYEGFR Non-Race Pmslncfdw71(L)>=60 ml/min/1.73sq.m 11/28/2024 8:29 AM [facility] LABORATORYComment: Reported eGFR is based on the CKD-EPI 2020 equation that does not use a race coefficient. Specimen (Source)Anatomical Location / LateralityCollection Method / Volume Collection TimeReceived TimeBloodVenous blood / UnknownVenipuncture / Unknown 11/28/2024 7:54 AM EDT1 8:06 AM EDT Narrative Authorizing ProviderResult TypeResult StatusSumundo QUICK BLOOD ORDERABLES Final ResultPerforming OrganizationAddressCity/State/ZIP CodePhone Number [facility] [address] [place] [address], * (ABNORMAL) CBC auto differential (11/28/2024 7:54 AM EDT)ComponentValueRef RangeTest MethodAnalysis TimePerformed AtPathologist SignatureWBC9.14 - 11 x10E9/L1 8:16 AM [facility] LABORATORYRBC Count2.91 (L)3.8 - 5.2 X10E12/L1 8:16 AM [facility] Hemoglobin9.3(L)11.7 - 15.5 g/dL11/28/2024 8:16 AM [facility] LINJUKEPIGBbjzbbuwtd12.2(L)35 - 47 %11/28/2024 8:16 AM [facility] KIEQDJZFQTMKM8943 - 100 fL11/28/2024 8:16 AM [facility] FDVERQZWAODQP12.127 - 34 pg11/28/2024 8:16 AM [facility] PLJAPZXILLLXVU90.132 - 36 g/dL11/28/2024 8:16 AM [facility] TENHNJLAXRVHU29.611.5 - 15 %11/28/2024 8:16 AM [facility] LABORATORYPlatelet Zytzn051(L)150 - 450 X10E9/L1 8:16 AM [facility] LABORATORYMPV9.07 - 12 fL11/28/2024 8:16 AM [facility] LABORATORYNeutrophils %86.7%11/28/2024 8:16 AM [facility] LABORATORYLymphocytes %4.5%11/28/2024 8:16 AM [facility] LABORATORYMonocytes %8.3%11/28/2024 8:16 AM [facility] LABORATORYEosinophils %0.3%11/28/2024 8:16 AM [facility] LABORATORYBasophils %0.2%11/28/2024 8:16 AM [facility] LABORATORYNeutrophils Absolute (A)7.9(H)1.5 - 6.6 10*3/uL 11/28/2024 8:16 AM [facility] LABORATORYLymphocytes Absolute 0.4(L)1.0 - 3.5 10*3/uL11/28/2024 8:16 AM [facility] LABORATORYMonocytes Absolute0.80.0 - 0.9 10*3/uL11/28/2024 8:16 AM [facility] LABORATORYEosinophils Absolute0.00.0 - 0.4 10*3/uL11/28/2024 8:16 AM [facility] LABORATORYBasophils Absolute0.00.0 - 0.2 10*3/uL11/28/2024 8:16 AM [facility] LABORATORYDifferential TypeAUTOMATED VVMMRRBZMHEH75/10/2025 8:16 AM [facility] LABORATORYSpecimen (Source)Anatomical Location / LateralityCollection Method / VolumeCollection TimeReceived TimeBloodVenous blood / UnknownVenipuncture / Dltckta8911/28/2024 7:54 AM EDT1 8:06 AM EDT Narrative Authorizing ProviderResult TypeResult StatusSumundo QUICK BLOOD ORDERABLES Final ResultPerforming OrganizationAddressCity/State/ZIP CodePhone Number [facility] [address] [place] [address], [place] [phone] * Ultrasound retroperitoneal complete (11/28/2024 7:41 AM [...] (POC)290(H)65 - 99 mg/dL 11/27/2024 9:36 PM [facility] LABORATORYSpecimen (Source)Anatomical Location / LateralityCollection Method / VolumeCollection TimeReceived Time arterial/eousunqpp55/09/2025 9:35 PM EDT1 9:36 PM EDT Narrative Authorizing ProviderResult TypeResult StatusSusalesa Quesadao MDPOINT OF CARE TEST ORDERABLESFinal ResultPerforming OrganizationAddressCity/State/ZIP CodePhone Number [facility] [address] [place] [address], [place] * X-ray chest 1 view (11/27/2024 [...] (POC)245(H)65 - 99 mg/dL 11/27/2024 5:[facility]ATORYSpecimen (Source)Anatomical Location / LateralityCollection Method / VolumeCollection TimeReceived Time arterial/oywvmerue77/09/2025 5:00 PM EDT1 5:03 PM EDT Narrative Authorizing ProviderResult TypeResult StatusSumundo Goodrich [facility] TEST ORDERABLESFinal ResultPerforming OrganizationAddressCity/State/ZIP CodePhone Number [facility] [address] [place] [address], [place] * X-ray hip right 2-3 views [...] PM Authorizing ProviderResult TypeResult StatusMerris R Christel [facility] DIAGNO[facility]IC IMAGING ORDERABLESFinal Result * X-ray hip [...] (POC)174(H)65 - 99 mg/dL 11/27/2024 10:24 AM [facility]YSpecimen (Source)Anatomical Location / LateralityCollection Method / VolumeCollection TimeReceived Time arterial/mikkitydx41/09/2025 10:22 AM EDT1 10:24 AM EDT Narrative Authorizing ProviderResult TypeResult Sofia Goodrich MDPOINT OF CARE TEST ORDERABLESFinal ResultPerforming OrganizationAddressCity/State/ZIP CodePhone Number [facility] [address] [place] [address], [place] * (ABNORMAL) Bedside Glucose *Place/Obtain serum glucose if >500 per glucometer. (11/27/2024 8:40 AM EDT)ComponentValueRef RangeTest MethodAnalysis Time Performed AtPathologist SignatureBedside Glucose (POC)147(H)65 - 99 mg/dL 11/27/2024 11:27 AM [facility] LABORATORYSpecimen (Source)Anatomical Location / LateralityCollection Method / VolumeCollection TimeReceived Time arterial/apeihrozz98/09/2025 8:40 AM EDT1 11:27 AM EDT Narrative Authorizing ProviderResult TypeResult Sofia Goodrich MDPOINT OF CARE TEST ORDERABLESFinal ResultPerforming OrganizationAddressty/State/[facility] CodePhone Number [facility] [address] [place] [address], [place] * Albumin (11/27/2024 5:42 AM EDT)ComponentValueRef RangeTest MethodAnalysis TimePerformed AtPathologist SignatureALBUMIN3.43.2 - 5.3 g/dL11/27/2024 6:05 PM [facility] LABORATORYSpecimen (Source)Anatomical Location / LateralityCollection Method / VolumeCollection TimeReceived TimeBloodVenous blood / UnknownVenipuncture / Gpcnwyz6511/27/2024 5:42 AM EDT1 6:13 AM EDT Narrative Authorizing ProviderResult TypeResult StatusDanial Sukhwinder MDLAB BLOOD ORDERABLES Final ResultPerforming OrganizationAddressCity/State/ZIP CodePhone Number [facility] [address] [place] [address], * Phosphorus (11/27/2024 5:42 AM EDT)ComponentValueRef RangeTest MethodAnalysis TimePerformed AtPathologist SignaturePHOSPHORUS4.32.4 - 4.9 mg/dL11/27/2024 6:05 PM [facility] LABORATORYSpecimen (Source)Anatomical Location / LateralityCollection Method / VolumeCollection TimeReceived Time BloodVenous blood / UnknownVenipuncture / Lxzchlm2111/27/2024 5:42 AM EDT 11/27/2024 6:13 AM EDT Narrative Authorizing ProviderResult TypeResult StatusDasaud Garcia MDLAB BLOOD ORDERABLES Final ResultPerforming OrganizationAddressCity/State/ZIP CodePhone Number [facility] [address] [place] [address], * (ABNORMAL) CK Total (11/27/2024 5:42 AM EDT)ComponentValueRef RangeTest Method Analysis TimePerformed AtPathologist VxiaonnuyIIV95(L)24 - 170 U/L1 6:05 PM [facility] LABORATORYSpecimen (Source)Anatomical Location / LateralityCollection Method / VolumeCollection TimeReceived Time BloodVenous blood / UnknownVenipuncture / Nchzodx8711/27/2024 5:42 AM EDT 11/27/2024 6:13 AM EDT Narrative Authorizing ProviderResult TypeResult StatusDanial Sukhwinder MDLAB BLOOD ORDERABLES Final ResultPerforming OrganizationAddressCity/State/ZIP CodePhone Number [facility] [address] [place] [address], * (ABNORMAL) B-type natriuretic peptide (11/27/2024 5:42 AM EDT)ComponentValue Ref RangeTest MethodAnalysis TimePerformed AtPathologist MotfijyxcJOP694(H) <=100 pg/mL11/27/2024 6:28 PM [facility] LABORATORYSpecimen (Source)Anatomical Location / LateralityCollection Method / VolumeCollection TimeReceived TimeBloodVenous blood / UnknownVenipuncture / Vzudoyx6411/27/2024 5:42 AM EDT1 6:13 AM EDT Narrative Authorizing ProviderResult TypeResult StatusDasaud Garcia MDSHANICE BLOOD ORDERABLES Final ResultPerforming OrganizationAddressCity/State/ZIP CodePhone Number [facility] [address] [place] [address], [place] [phone] * Uric acid (11/27/2024 5:42 AM EDT)ComponentValueRef RangeTest MethodAnalysis TimePerformed AtPathologist SignatureURIC ACID6.62.6 - 7.2 mg/dL11/27/2024 6:05 PM [facility]ORATORYSpecimen (Source)Anatomical Location / LateralityCollection Method / VolumeCollection TimeReceived Time BloodVenous blood / UnknownVenipuncture / Pmvggqg8611/27/2024 5:42 AM EDT 11/27/2024 6:13 AM EDT Narrative Authorizing ProviderResult TypeResult StatusDanial Sukhwinder MDLAB BLOOD ORDERABLES Final ResultPerforming OrganizationAddressCity/State/ZIP CodePhone Number [facility] [address] [place] [address], [place] [phone] * Prealbumin (11/27/2024 5:42 AM EDT)ComponentValueRef RangeTest MethodAnalysis TimePerformed AtPathologist JsotqodzcCJUYQQOWPZ1667 - 45 mg/dL11/27/2024 6:50 AM [facility]ORATORYSpecimen (Source)Anatomical Location / LateralityCollection Method / VolumeCollection TimeReceived TimeBloodVenous blood / UnknownVenipuncture / Kmufjot5211/27/2024 5:42 AM EDT1 6:13 AM EDT Narrative Authorizing ProviderResult TypeResult StatusPattishaheen Hong Sariah MDLAB BLOOD ORDERABLESFinal ResultPerforming OrganizationAddressCity/State/ZIP CodePhone Number [facility] [address] [place] [address], * (ABNORMAL) CBC without diff (11/27/2024 5:42 AM EDT)ComponentValueRef Range Test MethodAnalysis TimePerformed AtPathologist SignatureWBC8.14 - 11 x10E9/L 11/27/2024 6:29 AM [facility] LABORATORYRBC Count3.30(L)3.8 - 5.2 X10E12/L1 6:29 AM [facility] Gzsljmbgjo70.0(L)11.7 - 15.5 g/dL11/27/2024 6:29 AM [facility] PAXOKKIDQRKdbstydegz12.1(L)35 - 47 %11/27/2024 6:29 AM [facility] PSHFYPHCDTOHP7934 - 100 fL11/27/2024 6:29 AM [facility] RADHOQIYPAPQV41.327 - 34 pg11/27/2024 6:29 AM [facility] IAJEFPJCXGRSSQ09.232 - 36 g/dL11/27/2024 6:29 AM [facility] JIOKJTBMWLWLQ91.611.5 - 15 %11/27/2024 6:29 AM [facility] LABORATORYPlatelet Mxkxy274(L)150 - 450 X10E9/L1 6:29 AM [facility] LABORATORYMPV9.07 - 12 fL11/27/2024 6:29 AM [facility] LABORATORYSpecimen (Source)Anatomical Location / LateralityCollection Method / VolumeCollection TimeReceived TimeBloodVenous blood / UnknownVenipuncture / Bajdlsv2011/27/2024 5:42 AM EDT1 6:13 AM EDT Narrative Authorizing ProviderResult TypeResult Status[facility] [place] Gely Rolle Pathwright BLOOD ORDERABLESFinal ResultPerforming OrganizationAddressty/State/ZIP CodePhone Number [address] [place] [address], * (ABNORMAL) Parathyroid Hormone, intact (11/27/2024 5:42 AM EDT)ComponentValue Ref RangeTest MethodAnalysis TimePerformed AtPathologist SignaturePTH INTACT 116(H)12 - 88 pg/mL11/27/2024 7:02 AM [facility] Specimen (Source)Anatomical Location / LateralityCollection Method / Volume Collection TimeReceived TimeBloodVenous blood / UnknownVenipuncture / Unknown 11/27/2024 5:42 AM EDT1 6:13 AM EDT Narrative Authorizing ProviderResult TypeResult StatusGonzalo Rolle Pathwright BLOOD ORDERABLESFinal ResultPerforming OrganizationAddressty/State/ZIP CodePhone Number [place] [phone] [place] [address], * (ABNORMAL) Vitamin D 25 hydroxy (11/27/2024 5:42 AM EDT)ComponentValueRef RangeTest MethodAnalysis TimePerformed AtPathologist SignatureVITAMIN D 25 HYD TOT23.1(L)30.0 - 100.0 ng/mL11/27/2024 7:10 AM [facility] LABORATORYSpecimen (Source)Anatomical Location / LateralityCollection Method / VolumeCollection TimeReceived TimeBloodVenous blood / UnknownVenipuncture / Stlpjxv0711/27/2024 5:42 AM EDT1 6:13 AM EDT Narrative [facility] - 11/27/2024 7:10 AM EDT Vitamin D status 25 [place] Vitamin D Deficiency <20 ng/mL Insufficiency ? 20-29 ng/mL Sufficiency ? 30-100 ng/mL Toxicity >100 ng/mL NOTE: A pediatric reference range has not been established by the radiologist of this kit. The [employer] recommends a Vitamin D level of = or >20ng/mL in infants and children. Authorizing ProviderResult TypeResult StatusGonzalo Rolle MDLAB BLOOD ORDERABLESFinal ResultPerforming OrganizationAddressCity/State/ZIP CodePhone Number [facility] [address] [place] [address], * (ABNORMAL) Basic Metabolic Panel (11/27/2024 5:42 AM EDT)ComponentValueRef RangeTest MethodAnalysis TimePerformed AtPathologist DanwgzgnxYDYFXY882117 - 146 mmol/L1 6:50 AM [facility] LABORATORYPOTASSIUM 4.53.5 - 5.0 mmol/L1 6:50 AM [facility] ARLSVHIR50986 - 109 mmol/L1 6:50 AM [facility] LABORATORYCARBON TUWDUFF9013 - 32 mmol/L1 6:50 AM [facility] LABORATORYANION GAP75 - 15 mmol/L1 6:50 AM [facility] LABORATORYBLOOD UREA SXFHKIOL58(H)5 - 27 mg/dL11/27/2024 6:50 AM [facility] LABORATORYCREATININE2.53(H)0.40 - 1.00 mg/dL11/27/2024 6:50 AM [facility] LABORATORYComment:METHOD TRACEABLE TO IDMS MNGLCDKNBNDITUN274(H)65 - 99 mg/dL11/27/2024 6:50 AM EDT [facility] LABORATORYCALCIUM9.18.5 - 10.5 mg/dL11/27/2024 6:50 AM [facility]ORATORYEGFR Non-Race Jmvrsyhyo55(L)>=60 ml/min/1.73sq.m1 6:50 AM [facility] Comment: Reported eGFR is based on the CKD-EPI 2020 equation that does not use a race coefficient. Specimen (Source)Anatomical Location / LateralityCollection Method / Volume Collection TimeReceived TimeBloodVenous blood / UnknownVenipuncture / Unknown 11/27/2024 5:42 AM EDT1 6:13 AM EDT Narrative Authorizing ProviderResult TypeResult StatusHib H Ismail MDLAB BLOOD ORDERABLESFinal ResultPerforming OrganizationAddressCity/State/ZIP CodePhone Number [facility] [address] [place] [address], [place] [phone] * (ABNORMAL) Bedside Glucose *Place/Obtain serum glucose if >500 per glucometer. (11/26/2024 9:20 PM EDT)ComponentValueRef RangeTest MethodAnalysis Time Performed AtPathologist SignatureBedside Glucose (POC)231(H)65 - 99 mg/dL 11/26/2024 9:23 PM [facility] LABORATORYSpecimen (Source)Anatomical Location / LateralityCollection Method / VolumeCollection TimeReceived Time arterial/acijucfet16/08/2025 9:20 PM EDT1 9:23 PM EDT Narrative Authorizing ProviderResult TypeResult StatusHib H Ismail MDPOINT OF CARE TEST ORDERABLESFinal ResultPerforming OrganizationAddressCity/State/ZIP CodePhone Number [facility] [address] [place] [address], [place] * (ABNORMAL) Bedside Glucose *Place/Obtain serum glucose if >500 per glucometer. (11/26/2024 5:46 PM EDT)ComponentValueRef RangeTest MethodAnalysis Time Performed AtPathologist SignatureBedside Glucose (POC)122(H)65 - 99 mg/dL 11/26/2024 8:58 PM [facility] LABORATORYSpecimen (Source)Anatomical Location / LateralityCollection Method / VolumeCollection TimeReceived Time arterial/birwcybul37/08/2025 5:46 PM EDT1 8:58 PM EDT Narrative Authorizing ProviderResult TypeResult StatusHib H Ismail MDPOINT OF CARE TEST ORDERABLESFinal ResultPerforming OrganizationAddressCity/State/ZIP CodePhone Number [facility] [address] [address], [place] * CT hip right without contrast [...] RangeTest Method Analysis TimePerformed AtPathologist SignatureURINE UREA NITROGEN,GGQWTT323 mg/dL11/26/2024 6:38 PM [facility] LABORATORYSpecimen (Source)Anatomical Location / LateralityCollection Method / VolumeCollection TimeReceived TimeUrineUrine / Ktsfujl9511/26/2024 4:45 PM EDT1 5:16 PM EDT Narrative Authorizing ProviderResult TypeResult Cheryl CURRIE ORDERABLES Final ResultPerforming OrganizationAddressCity/State/ZIP CodePhone Number [facility] [address] [place] [address], * Urine Creatinine,Rdm (11/26/2024 4:45 PM EDT)ComponentValueRef RangeTest MethodAnalysis TimePerformed AtPathologist SignatureURINE CREATININE,RDM72.60 mg/dL11/26/2024 6:38 PM [facility] LABORATORYSpecimen (Source)Anatomical Location / LateralityCollection Method / VolumeCollection TimeReceived TimeUrineUrine / Ssbehhz1011/26/2024 4:45 PM EDT1 5:16 PM EDT Narrative Authorizing ProviderResult TypeResult Cheryl CURRIE ORDERABLES Final ResultPerforming OrganizationAddressCity/State/ZIP CodePhone Number [facility] [address] [place] [address], * Sodium, urine, random (11/26/2024 4:45 PM EDT)ComponentValueRef RangeTest MethodAnalysis TimePerformed AtPathologist SignatureURINE SODIUM,HBHQNI10 mmol/L1 6:38 PM [facility] LABORATORYSpecimen (Source)Anatomical Location / LateralityCollection Method / VolumeCollection TimeReceived TimeUrineUrine / Uzlkkgn6211/26/2024 4:45 PM EDT1 5:16 PM EDT Narrative Authorizing ProviderResult TypeResult StatusGonzalo CURIRE ORDERABLES Final ResultPerforming OrganizationAddressCity/State/ZIP CodePhone Number [facility] [address] [place] [address], * (ABNORMAL) Urinalysis (11/26/2024 4:45 PM EDT)ComponentValueRef RangeTest MethodAnalysis TimePerformed AtPathologist SignatureCOLORYellowYellow 11/26/2024 6:33 PM [facility] LABORATORYTURBIDITYHazy(A)Clear 11/26/2024 6:33 PM [facility] LABORATORYSPECIFIC GRAVITY1.010 1.003 - 1.5039311/26/2024 6:33 PM [facility] LABORATORYNITRITE BntwrjfrXrruhhwr22/08/2025 6:33 PM [facility] PH,URINE6.55.0 - 8.510 6:33 PM [facility] LEUKOCYTE ESTERASESmall(A)Qxyabhhx34/08/2025 6:33 PM [facility] LABORATORYComment:High Concentrations of Glucose May Decrease the Reactivity of the Dipstick Leukocyte Test Pad.QMDYSWC47 mg/dL(A)Negative 11/26/2024 6:33 PM [facility] LABORATORYKETONES (URINE) IkljjabmXplgbzkv31/08/2025 6:33 PM [facility] UROBILINOGEN<1.1 eu/dL<1.1 eu/dL11/26/2024 6:33 PM [facility] LABORATORYBILIRUBIN (URINE)VomvqmmoWhxqynsy54/08/2025 6:33 PM [facility] LABORATORYBLOOD/SMLPtecrbhrTzoanfcv28/08/2025 6:33 PM EDT [facility] LABORATORYR.B.CELLS<10 - 510 6:33 PM EDT [facility] LABORATORYW.B.CELLS8(H)0 - 510 6:33 PM EDT [facility] LABORATORYGLUCOSE (URINE)>1000 mg/dL(A)Negative 11/26/2024 6:33 PM [facility]ORATORYSpecimen (Source) Anatomical Location / LateralityCollection Method / VolumeCollection Time Received TimeUrineUrine / Lohhxkb2511/26/2024 4:45 PM EDT1 5:16 PM EDT Narrative [facility] - 11/26/2024 6:33 PM EDT Urine received without preservative - delays in transport may affect results. Interpret with caution and clinical correlation is recommended. Authorizing ProviderResult TypeResult StatusGonzalo CURRIE ORDERABLES Final ResultPerforming OrganizationAddressCity/State/ZIP CodePhone Number [facility] [address] [place] [address], * ECG 12 lead (11/26/2024 4:39 PM EDT)Specimen (Source)Anatomical Location / LateralityCollection Method / VolumeCollection TimeReceived Time11/26/2024 4:39 PM EDT Narrative [facility] - 11/28/2024 5:40 PM EDT Authorizing ProviderResult TypeResult StatusRuwhitley GRIFFIN ORDERABLES Final ResultPerforming OrganizationAddressCity/State/ZIP CodePhone Number [facility] * (ABNORMAL) B-type natriuretic peptide (11/26/2024 4:34 PM EDT)ComponentValue Ref RangeTest MethodAnalysis TimePerformed AtPathologist YaqwuhurxFRO674(H) <=100 pg/mL11/26/2024 6:10 PM [facility] LABORATORYSpecimen (Source)Anatomical Location / LateralityCollection Method / VolumeCollection TimeReceived TimeBloodVenous blood / Ylqyhkm1811/26/2024 4:34 PM EDT1 4:49 PM EDT Narrative Authorizing ProviderResult TypeResult StatusGonzalo QUICK BLOOD ORDERABLESFinal ResultPerforming OrganizationAddressCity/State/ZIP CodePhone Number [facility] [address] [place] [address], * CK Total (11/26/2024 4:34 PM EDT)ComponentValueRef RangeTest MethodAnalysis TimePerformed AtPathologist RnsrxdbzjEEU1991 - 170 U/L1 5:46 PM EDT [facility]ORATORYSpecimen (Source)Anatomical Location / LateralityCollection Method / VolumeCollection TimeReceived TimeBloodVenous blood / Wnjansh4111/26/2024 4:34 PM EDT1 4:49 PM EDT Narrative Authorizing ProviderResult TypeResult StatusHib H Sariah ALLAB BLOOD ORDERABLESFinal ResultPerforming OrganizationAddressCity/State/ZIP CodePhone Number [facility] [address] [place] [address], * Vitamin B12 (11/26/2024 4:34 PM EDT)ComponentValueRef RangeTest MethodAnalysis TimePerformed AtPathologist SignatureVITAMIN [id number] - 914 pg/mL11/26/2024 5:46 PM [facility]ORATORYSpecimen (Source)Anatomical Location / LateralityCollection Method / VolumeCollection TimeReceived Time BloodVenous blood / Vlggsvt1511/26/2024 4:34 PM EDT1 4:49 PM EDT Narrative Authorizing ProviderResult TypeResult StatusHib H Issidil ALLAB BLOOD ORDERABLESFinal ResultPerforming OrganizationAddressCity/State/ZIP CodePhone Number [facility] [address] [place] [address], * Reticulocytes (11/26/2024 4:34 PM EDT)ComponentValueRef RangeTest Method Analysis TimePerformed AtPathologist SignatureReticulocyte Count1.50.4 - 2.2 % 11/26/2024 4:56 PM [facility]ORATORYSpecimen (Source) Anatomical Location / LateralityCollection Method / VolumeCollection Time Received TimeBloodVenous blood / Vhmbtbm2611/26/2024 4:34 PM EDT1 4:49 PM EDT Narrative Authorizing ProviderResult TypeResult StatusHibah Gely Menashireen MDLAB BLOOD ORDERABLESFinal ResultPerforming OrganizationAddressCity/State/ZIP CodePhone Number [facility] [address] [place] [address], * Iron and TIBC (11/26/2024 4:34 PM EDT)ComponentValueRef RangeTest Method Analysis TimePerformed AtPathologist IfjdajjxqWZGD7224 - 170 ug/dL11/26/2024 5:46 PM [facility] LABORATORYComment:R-Specimen moderately hemolyzed, results pwjmwrvecDIAEKXVNLGH027068 - 336 mg/dL11/26/2024 5:46 PM [facility] LABORATORYIRON MSAQEFE494605 - 425 ug/dL11/26/2024 5:46 PM [facility] LABORATORYIRON GPFYCEEUDU6691 - 50 % HOHJJKNXEA58/08/2025 5:46 PM [facility] LABORATORYSpecimen (Source)Anatomical Location / LateralityCollection Method / VolumeCollection TimeReceived TimeBloodVenous blood / Ziwrwqk7611/26/2024 4:34 PM EDT1 4:49 PM EDT Narrative Authorizing ProviderResult TypeResult StatusHibah Gely Sariah MDLAB BLOOD ORDERABLESFinal ResultPerforming OrganizationAddressCity/State/ZIP CodePhone Number [facility] [address] [place] [address], * Folate (11/26/2024 4:34 PM EDT)ComponentValueRef RangeTest MethodAnalysis Time Performed AtPathologist SignatureFOLIC ACID>25.0>5.8 ng/mL11/26/2024 5:46 PM [facility]ORATORYSpecimen (Source)Anatomical Location / LateralityCollection Method / VolumeCollection TimeReceived TimeBloodVenous blood / Pkdmarp9111/26/2024 4:34 PM EDT1 4:49 PM EDT Narrative Authorizing ProviderResult TypeResult StatusHibah H Ismail Pathwright BLOOD ORDERABLESFinal ResultPerforming OrganizationAddressCity/State/ZIP CodePhone Number [facility] [address] [place] [address], * Ferritin (11/26/2024 4:34 PM EDT)ComponentValueRef RangeTest MethodAnalysis TimePerformed AtPathologist QoqgebezfWBYOYXNQ3624 - 307 ng/mL11/26/2024 5:46 PM [facility] LABORATORYSpecimen (Source)Anatomical Location / LateralityCollection Method / VolumeCollection TimeReceived TimeBloodVenous blood / Dpbgimg4711/26/2024 4:34 PM EDT1 4:49 PM EDT Narrative Authorizing ProviderResult TypeResult StatusHermann Area District Hospitalshaheen Rolle Pathwright BLOOD ORDERABLESFinal ResultPerforming OrganizationAddressCity/State/ZIP CodePhone Number [facility] [address] [place] [address], * (ABNORMAL) Vitamin D 25 hydroxy (11/26/2024 4:34 PM EDT)ComponentValueRef RangeTest MethodAnalysis TimePerformed AtPathologist SignatureVITAMIN D 25 HYD TOT27.1(L)30.0 - 100.0 ng/mL11/26/2024 5:46 PM [facility] LABORATORYSpecimen (Source)Anatomical Location / LateralityCollection Method / VolumeCollection TimeReceived TimeBloodVenous blood / Hmcgxag1811/26/2024 4:34 PM EDT1 4:49 PM EDT Narrative [facility] - 11/26/2024 5:46 PM EDT Vitamin D status 25 [place] Vitamin D Deficiency <20 ng/mL Insufficiency ? 20-29 ng/mL Sufficiency ? 30-100 ng/mL Toxicity >100 ng/mL NOTE: A pediatric reference range has not been established by the radiologist of this kit. The [employer] recommends a Vitamin D level of = or >20ng/mL in infants and children. Authorizing ProviderResult TypeResult StatusGian Green DOLAB BLOOD ORDERABLESFinal ResultPerforming OrganizationAddressCity/State/ZIP CodePhone Number [facility] [address] [place] [address], * Type and screen(includes indirect vikas) (11/26/2024 4:34 PM EDT)Component ValueRef RangeTest MethodAnalysis TimePerformed AtPathologist SignatureABOA 11/26/2024 5:41 PM [facility] JOGOMDWMMPXVDihzmyuc16/08/2025 5:41 PM [facility] LABORATORYAntibody DlkkyjSbupcctw17/08/2025 5:41 PM EDT [facility] LABORATORYSpecimen (Source)Anatomical Location / Laterality Collection Method / VolumeCollection TimeReceived TimeBloodVenous blood / Obyparh0911/26/2024 4:34 PM EDT1 5:04 PM EDT Narrative Authorizing ProviderResult TypeResult StatusGian Green DOBLOOD BANK TEST ORDERABLESEdited Result - FinalPerforming OrganizationAddressCity/State/ZIP Code Phone Number [facility] [address] [place] [address], [facility] [address] [place] [address], * Prealbumin (11/26/2024 4:34 PM EDT)ComponentValueRef RangeTest MethodAnalysis TimePerformed AtPathologist FtbigreawUIMPXYYALY2478 - 45 mg/dL11/26/2024 5:46 PM [facility] LABORATORYSpecimen (Source)Anatomical Location / LateralityCollection Method / VolumeCollection TimeReceived TimeBloodVenous blood / Ozyfoex9911/26/2024 4:34 PM EDT1 4:49 PM EDT Narrative Authorizing ProviderResult TypeResult StatusRuwhitley Green DOLAB BLOOD ORDERABLESFinal ResultPerforming OrganizationAddressCity/State/ZIP CodePhone Number [facility] [address] [place] [address], * (ABNORMAL) Basic Metabolic Panel (11/26/2024 4:34 PM EDT)ComponentValueRef RangeTest MethodAnalysis TimePerformed AtPathologist BwdkguzquQGSNSL660760 - 146 mmol/L1 5:46 PM [facility] LABORATORYPOTASSIUM 4.33.5 - 5.0 mmol/L1 5:46 PM [facility] Comment:R-Specimen moderately hemolyzed, results lvikuisceYEUVCJTX61270 - 109 mmol/L1 5:46 PM [facility] LABORATORYCARBON DIOXIDE 2722 - 32 mmol/L1 5:46 PM [facility] LABORATORYANION PQH490 - 15 mmol/L1 5:46 PM [facility] BLOOD UREA MDIRRWRT43(H)5 - 27 mg/dL11/26/2024 5:46 PM [facility] LABORATORYCREATININE2.57(H)0.40 - 1.00 mg/dL11/26/2024 5:46 PM EDT [facility] LABORATORYComment:METHOD TRACEABLE TO IDMS STANDARD UOEEZDQ768(H)65 - 99 mg/dL11/26/2024 5:46 PM [facility] LABORATORYCALCIUM9.38.5 - 10.5 mg/dL11/26/2024 5:46 PM [facility] LAB[facility]ORYEGFR Non-Race Verlnyqlj08(L)>=60 ml/min/1.73sq.m1 5:46 PM [facility] LABORATORYComment: Reported eGFR is based on the CKD-EPI 2020 equation that does not use a race coefficient. Specimen (Source)Anatomical Location / LateralityCollection Method / Volume Collection TimeReceived TimeBloodVenous blood / Ygwrqul9911/26/2024 4:34 PM EDT 11/26/2024 4:49 PM EDT Narrative Authorizing ProviderResult TypeResult StatusRuwhitley ROE BLOOD ORDERABLESFinal ResultPerforming OrganizationAddressCity/State/ZIP CodePhone Number [facility] [address] [place] [address], * (ABNORMAL) CBC auto differential (11/26/2024 4:34 PM EDT)ComponentValueRef RangeTest MethodAnalysis TimePerformed AtPathologist CskmtgskvLDR20.4(H)4 - 11 x10E9/L1 4:56 PM [facility] LABORATORYRBC Count3.62 (L)3.8 - 5.2 X10E12/L1 4:56 PM [facility] Nghplfqhvk17.811.7 - 15.5 g/dL11/26/2024 4:56 PM [facility] PTJRXJOVPAWlevjlkaoy22.6(L)35 - 47 %11/26/2024 4:56 PM [facility] KGRLXPTTVQHYM9140 - 100 fL11/26/2024 4:56 PM [facility] HYKCXYGFOCRJQ92.527 - 34 pg11/26/2024 4:56 PM [facility] XZRZRPDSLPODUC29.032 - 36 g/dL11/26/2024 4:56 PM [facility] OZPIZDQHKLCRK62.611.5 - 15 %11/26/2024 4:56 PM [facility] LABORATORYPlatelet Xcacw528019 - 450 X10E9/L1 4:56 PM EDT [facility] LABORATORYMPV9.17 - 12 fL11/26/2024 4:56 PM [facility] LABORATORYNeutrophils %84.6%11/26/2024 4:56 PM [facility] LABORATORYLymphocytes %6.8%11/26/2024 4:56 PM [facility] LABORATORYMonocytes %7.7%11/26/2024 4:56 PM [facility] LABORATORYEosinophils %0.6%11/26/2024 4:56 PM [facility] LABORATORYBasophils %0.3%11/26/2024 4:56 PM [facility] LABORATORYNeutrophils Absolute (A)10.5(H)1.5 - 6.6 10*3/uL 11/26/2024 4:56 PM [facility] LABORATORYLymphocytes Absolute 0.8(L)1.0 - 3.5 10*3/uL11/26/2024 4:56 PM [facility] LABORATORYMonocytes Absolute1.0(H)0.0 - 0.9 10*3/uL11/26/2024 4:56 PM EDT [facility] LABORATORYEosinophils Absolute0.10.0 - 0.4 10*3/uL 11/26/2024 4:56 PM [facility] LABORATORYBasophils Absolute0.0 0.0 - 0.2 10*3/uL11/26/2024 4:56 PM [facility] Differential TypeAUTOMATED PMVEZZGXBEEH73/08/2025 4:56 PM [facility] LABORATORYSpecimen (Source)Anatomical Location / LateralityCollection Method / VolumeCollection TimeReceived TimeBloodVenous blood / Unknown 11/26/2024 4:34 PM EDT1 4:49 PM EDT Narrative Authorizing ProviderResult TypeResult StatusRuwhitley ROE BLOOD ORDERABLESFinal ResultPerforming OrganizationAddressCity/State/ZIP CodePhone Number [facility] [address] [place] [address], documented in this encounter Visit Diagnoses Diagnosis Closed fracture of right hip, initial encounter ([facility]) Type 2 diabetes mellitus with stage 3b chronic kidney disease, with long-term current use of insulin ([facility]) Closed fracture of right hip, initial encounter ([facility]) documented in this encounter Admitting Diagnoses Diagnosis Closed fracture of right hip, initial encounter ([facility]) documented in this encounter Administered Medications Medication [...] take medications orally. Given12/01/2024 12:20 PM EDT1,000 mfEtpww6212/01/2024 3:14 AM EDT1,000 mgGiven 11/30/2024 9:04 PM [...] Avoid grapefruit juice. Given12/01/2024 6:28 AM EDT5 rqSoqkj0011/30/2024 9:04 PM EDT5 mg aprepitant (EMEND) capsule 40 mg 40 mg, oral, Once, On Daria 11/27/24 at 1045, For 1 dose, Pre-op Given11/27/2024 10:48 AM EDT40 mg atorvastatin (LIPITOR) tablet 80 mg 80 mg, oral, Daily, First dose on Daria 11/27/24 at 1615, Look-alike/sound-alike medication - verify indication for use. Given12/01/2024 9:29 AM EDT80 flHajtt4911/30/2024 9:47 AM EDT80 jfRiwaf8011/29/2024 9:27 AM EDT80 mg buPROPion XL (WELLBUTRIN XL) 24 hr tablet 150 mg 150 mg, oral, Daily, First dose on Daria 11/27/24 at 1615, Look-alike/sound-alike medication - verify indication for use. Do not crush or chew. Given12/01/2024 9:29 AM DDO536 ynQotyk8011/30/2024 9:45 AM KIN512 mgGiven 11/29/2024 9:26 AM FJD274 mg calcium citrate (CALCITRATE) tablet 400 mg 400 mg, oral, 3 times daily with meals, First dose on Daria 11/27/24 at 1700, PACU & Post-op Given12/01/2024 12:20 PM EJX856 pjHlywk0512/01/2024 9:29 AM QOA646 mgGiven 11/30/2024 5:10 PM INJ941 mg carvediloL (COREG) tablet 12.5 mg 12.5 mg, oral, 2 times daily with meals, First dose on Daria 11/27/24 at 1700, Hold for systolic bloodpressure less than 100 and heart rate less than 60 Give with meal or snack. Look-alike/sound-alike medication - verify indication for use. Given11/30/2024 5:10 PM EDT12.5 rcIsdgb3911/30/2024 8:44 AM EDT12.5 mgGiven 11/29/2024 4:05 PM [...] Other, Specify: perisurgical prophylaxis Given12/01/2024 9:30 AM ZTW583 frTcilb6211/30/2024 10:00 PM GSI920 mgGiven 11/30/2024 9:42 AM OEA874 mg ceFUROxime (CEFTIN) tablet 500 mg 500 mg, oral, Every 12 hours scheduled, First dose on Sun11/28/24 at 2100, For 7 days, Indication:Other, Specify: perisurgical prophylaxis Given11/29/2024 9:39 AM NMD057 lbMztni0611/28/2024 9:33 PM QEV387 mg cholecalciferol (vitamin D3) tablet 2,000 Units 2,000 Units, oral, Daily, First dose on Daria 11/27/24 at 1515, PACU & Post-op Given12/01/2024 9:29 AM EDT2,000 UkoheFkocg02/12/2025 9:46 AM EDT2,000 Units Given11/29/2024 9:27 AM [...] indication for use. Given11/27/2024 3:45 PM EDT50 sjiCxggw41/09/2025 3:40 PM EDT50 mcg glucagon HCL injection [...] for bleeding. Given12/01/2024 12:20 PM EDT5,000 UnitsAbdominal QjpffmPcdmy00/13/2025 6:28 AM EDT5,000 UnitsAbdominal HziadoTiilp72/12/2025 9:08 PM EDT5,000 UnitsAbdominal Tissue hydrALAZINE (APRESOLINE) [...] a meal. Given11/30/2024 9:10 PM EDT1 UnitsAbdominal DyrdkaBhhyk03/11/2025 9:52 PM EDT1 UnitsAbdominal ZqhwjiZuylt32/10/2025 9:34 PM EDT1 UnitsAbdominal Tissue insulin lispro [...] a meal. Given11/28/2024 5:30 PM EDT3 UnitsAbdominal ZaxeewLvfml65/10/2025 2:00 PM EDT2 UnitsAbdominal VhvzipYtgrh62/10/2025 8:27 AM EDT2 UnitsAbdominal Tissue insulin lispro [...] a meal. Given12/01/2024 12:21 PM EDT6 UnitsAbdominal EcsniySdlxc45/13/2025 9:32 AM EDT2 UnitsAbdominal HuenusXwnnn34/12/2025 5:15 PM EDT6 UnitsAbdominal Tissue iron sucrose (VENOFER) IVPB 200 mg/110 mL in sodium chloride 0.9% (CMPD premix) 200 mg, intravenous, at 440 mL/hr, Administer over 15 Minutes, Daily, First dose on Sun11/30/24 wb6938, For 5 doses, Monitor patient for hypersensitivity reactions for at least 30 minutes after theinfusion. AVOID the use of H1 antihistamines, such as diphenhydramine, as this may worsen hypersensitivity reactions. Have resuscitation equipment and medications available. New Bag12/01/2024 9:39 AM ITU181 mg440 mL/hrNew Bag11/30/2024 10:09 PM VPW723 mg 440 mL/hr isosorbide mononitrate (IMDUR) 24 [...] indication for use. Given11/30/2024 9:04 PM EDT10 igHcxdg7711/29/2024 9:46 PM EDT10 mg ondansetron (PF) (ZOFRAN) injection 4 mg 4 mg, intravenous, Every 4 hours PRN, nausea, Starting on Sun11/26/24 at 1637, Intravenous administration preferred to be given over 2-5 minutes., Intravenous Specific Administration: IV Push oxyCODONE (ROXICODONE) immediate release tablet 2.5 mg 2.5 mg, oral, Every 4 hours PRN, mild to moderate pain - pain scale 1-6, Starting on Sun11/26/24 xe9933, For patients less than 75 years of [...] use. Immediate release. Given11/30/2024 8:44 AM EDT5 jqQxnfj0211/29/2024 7:33 PM EDT5 upDyowo7311/29/2024 9:39 AM EDT5 mg PARoxetine (PAXIL) tablet 40 mg 40 mg, oral, Daily, First dose on Sun11/30/24 at 0900, Look-alike/sound-alike medication - verify indication for use. Given12/01/2024 9:30 AM EDT40 gxEvyrs1811/30/2024 9:58 AM EDT40 mg perflutren lipid microspheres [...] coffee or tea. Given12/01/2024 9:29 AM EDT17 kMlhcw4511/30/2024 9:58 AM EDT17 g sennosides-docusate sodium (SENOKOT-S) 8.6-50 mg 2 tablet 2 tablet, oral, Nightly, First dose on Sun11/26/24 at 2200 Given11/30/2024 9:04 PM EDT2 ndvneoqWtcer71/11/2025 9:45 PM EDT2 tabletsGiven 11/28/2024 9:33 PM [...] Etienne, BRIAN) * 0929 (Given - Provider: [place]ly [place], BRIAN) * 1220 (Given - Provider: [...] * 0926 (Given - Provider: Terra Etienne, RBIAN) * 1408 (Given - Provider: Terra Etienne, [...] 15 Minutes, Daily, First dose on Sun11/30/24 aw9287, For 5 doses, Monitor patient for hypersensitivity [...] - pain scale 1-6, Starting on Sun11/26/24 cl0191, For patients less than 75 years of [...] Date Amador Abdalla MD [address] [place] [address] PCP - GeneralFamily Ylptipxp17/8/25documented as of this encounter
--- OUTSIDE RECORDS SUMMARY | 2024-12-10 14:00 | XMS_ITS | Encounter Summary ---
Author Organization Alex [facility] Jody tem Address [id number] [address] [place] [address] Care Team Providers Care Bonding Supervisor Name Role Phone Amador Lopez MD Primary Care Provider [phone] Encounter Details DateTypeDepartmentCare Team (Latest Contact Info)Dhdfurtytwn77/22/2025 2:00 PM EDT - 12/10/2024 11:59 PM EDTHospital Encounter [facility] [address] [place] [address] S/P hip hemiarthroplasty Discharge Disposition: Home Social History Tobacco UseTypesPacks/DayYears UsedDateSmoking Tobacco: NeverSmokeless Tobacco: NeverAlcohol UseStandard Drinks/WeekCommentsNot Currently0 (1 standard drink = 0.6 oz pure alcohol)[facility] UtilitiesAnswerDate RecordedIn the past 12 months has the electric, gas, oil, or water [employer] threatened to shut off services in your home?No11/26/2024PHQ-2AnswerDate RecordedTotal Mofcy262PRAPARE - TransportationAnswerDate RecordedIn the past 12 months, [...] a part of a household?No11/26/2024hildcareAnswerDate RecordedChildcareUnknown 07/31/2018EmploymentAnswerDate CfppuwvnRklyjovvsuIonavcy54/12/2019Hunger ScreeningAnswerDate RecordedWithin the past 12 months we worried whether our food would run out before we got money to buy more.Never True12/10/2024Within the past 12 months the food we bought just didn't last and we didn't have money to get more.Never True12/10/2024CommentsNoSex and Gender Information ValueDate RecordedSex Assigned at BirthNot on fileLegal RxjCvtjgp03/06/2015 11:56 AM EDTGender IdentityNot on fileSexual OrientationNot on filedocumented as of this encounter Medications at Time of Discharge [...] mg total) by mouth in the morning. baclofen (LIORESAL) 10 mg tablet Take 1 tablet (10 mg total) by mouth 3 (three) times a day. buPROPion XL (WELLBUTRIN XL) 150 mg 24 [...] skin every 8 (eight) hours for 28 days./11/2024 hydrALAZINE (APRESOLINE) 100 mg tablet Take 0.5 [...] mg total) by mouth in the morning. temazepam (RESTORIL) 7.5 mg capsule Take 1 capsule (7.5 mg total) by mouth nightly as needed for sleep.documented as of this encounter Plan of Treatment DateTypeDepartmentCare Team (Latest Contact Info)Eukuawhnloy73/26/2025 1:00 PM ESTOffice Visit [facility] [address] [place] [phone] Kirby Andersen MD [address] [place] [address] documented as of this encounter Goals GoalPatient Goal TypeAssociated ProblemsRecent ProgressPatient-Stated?Author <enter goal here> Abbie Holland LSW Note: Evaluation of progress towards goal: plan to go to group home facility for rehab needs documented as of this encounter Procedures Procedure NamePriorityDate/TimeAssociated DiagnosisCommentsXR HIP RT 2-3 VIEWS W OR WO VBBLDYFaduqad86/22/2025 2:27 PM EDT S/P hip hemiarthroplasty documented in this encounter Results * X-ray hip right 2-3 views with or without pelvis (12/10/2024 2:27 PM EDT) Anatomical RegionLateralityModalityLower Extremities, MSK, HipRightComputed RadiographySpecimen (Source)Anatomical Location / LateralityCollection Method / VolumeCollection TimeReceived Time12/10/2024 6:15 PM EDT Narrative 12/10/2024 6:16 PM EDT EXAM: XR HIP RT 2-3 VIEWS W OR WO PELVIS CLINICAL INFORMATION: S/P hip hemiarthroplasty. COMPARISON: 11/27/2024 FINDINGS: Stable changes of right hip arthroplasty. There is no convincing radiographic evidence for hardwarecomplications or failure. 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 IMPRESSION: 1. Stable changes of right hip arthroplasty. There is no convincing radiographic evidence for hardware complications or failure. 2. Chronic moderate left hip joint DJD. Finalized by Adolfo Jessica MD on 12/10/2024 6:16 PM Procedure Note Adolfo Jessica MD - 12/10/2024 EXAM: XR HIP RT 2-3 VIEWS W OR WO PELVIS CLINICAL INFORMATION: S/P hip hemiarthroplasty. COMPARISON: 11/27/2024 FINDINGS: Stable changes of right hip arthroplasty. There is no convincingradiographic evidence for hardware complications or failure. There ischronic moderate left hip joint DJD. IMPRESSION: 1. Stable changes of right hip arthroplasty. There is no convincingradiographic evidence for hardware complications or failure. 2. Chronic moderate left hip joint DJD. Finalized by Adolfo Jessica MD on 12/10/2024 6:16 PM Authorizing ProviderResult TypeResult StatusKirby Andersen MDIMChitra DIAGNOSTIC IMAGING ORDERABLESFinal Result documented in this encounter Visit Diagnoses Diagnosis S/P hip hemiarthroplasty documented in this encounter Additional Health Concerns AssessmentNoted TimePHQ-9 Depression Total Score: 5:16 PM EDT documented as of this encounter Care Teams Team MemberRelationshipSpecialtyStart DateEnd Date Amador Lopez MD [address] [place] [address] PCP - GeneralFamily Bcnhqblp06/8/25documented as of this encounter
--- OUTSIDE RECORDS SUMMARY | 2024-12-10 14:00 | XMS_ITS | Encounter Summary ---
Author Organization Alex [facility] Jody tem Address [id number] [address] [place] [address] Care Team Providers Care Systems Manager Name Role Phone Amador Lopez MD Primary Care Provider [phone] Encounter Details DateTypeDepartmentCare Team (Latest Contact Info)Qtkkyoxidwl77/22/2025 2:00 PM EDT - 12/10/2024 11:59 PM EDTHospital Encounter [facility] [address] [place] [address] S/P hip hemiarthroplasty Discharge Disposition: Home Social History Tobacco UseTypesPacks/DayYears UsedDateSmoking Tobacco: NeverSmokeless Tobacco: NeverAlcohol UseStandard Drinks/WeekCommentsNot Currently0 (1 standard drink = 0.6 oz pure alcohol)[facility] UtilitiesAnswerDate RecordedIn the past 12 months has the electric, gas, oil, or water [employer] threatened to shut off services in your home?No11/26/2024PHQ-2AnswerDate RecordedTotal Ylmxa082PRAPARE - TransportationAnswerDate RecordedIn the past 12 months, [...] a part of a household?No11/26/2024hildcareAnswerDate RecordedChildcareUnknown 07/31/2018EmploymentAnswerDate VpsdowefIdiakmucfwVzijccu84/12/2019Hunger ScreeningAnswerDate RecordedWithin the past 12 months we worried whether our food would run out before we got money to buy more.Never True12/10/2024Within the past 12 months the food we bought just didn't last and we didn't have money to get more.Never True12/10/2024CommentsNoSex and Gender Information ValueDate RecordedSex Assigned at BirthNot on fileLegal ForReovqz54/06/2015 11:56 AM EDTGender IdentityNot on fileSexual OrientationNot [...] Plan of Treatment DateTypeDepartmentCare Team (Latest Contact Info)Itbsuwcizqt48/26/2025 1:00 PM ESTOffice Visit [facility] [address] [place] [phone] Kirby Andersen MD [address] [place] [address] documented as of this encounter Goals GoalPatient Goal TypeAssociated ProblemsRecent ProgressPatient-Stated?Author <enter goal here> Abbie Holland LSW Note: Evaluation of progress towards goal: plan to go to senior care facility for rehab needs documented as of this encounter Procedures Procedure NamePriorityDate/TimeAssociated DiagnosisCommentsXR HIP RT 2-3 VIEWS W OR WO MXVIMAPfqczgh90/22/2025 2:27 PM EDT S/P hip hemiarthroplasty documented [...] Date Amador Lopez MD [address] [place] [address] PCP - GeneralFamily Prgibzna85/8/25documented as of this encounter
--- OUTSIDE RECORDS SUMMARY | 2024-12-10 14:00 | XMS_ITS | Encounter Summary ---
Author Organization [facility] Aneumed s tem Address [id number] [address] [place] [address] Care Team Providers Care Pier Worker Name Role Phone Amador Lopez MD Primary Care Provider [phone] Reason for Visit * ReasonCommentsPost-ops/p R hip dylon (11/27), [facility] waiting inwaiting room for patientPost-op Encounter Details DateTypeDepartmentCare Team (Latest Contact Info)Huqvtjqybtb00/22/2025 2:00 PM EDTOffice Visit [facility] [address] [place] [address] Kirby Andersen MD [address] [place], [place] [phone] Age-related osteoporosis with current pathological fracture with routine healing (Primary Dx); History of right hip hemiarthroplasty; Closed fracture of neck of right femur, sequela Social History Tobacco UseTypesPacks/DayYears UsedDateSmoking Tobacco: NeverSmokeless Tobacco: NeverAlcohol UseStandard Drinks/WeekCommentsNot Currently0 (1 standard drink = 0.6 oz pure alcohol)[facility] UtilitiesAnswerDate RecordedIn the past 12 months has the electric, gas, oil, or water [employer] threatened to shut off services in your home?No11/26/2024PHQ-2AnswerDate RecordedTotal Wfcbs497PRAPARE - TransportationAnswerDate RecordedIn the past 12 months, [...] stay in as a part of a household?No5ChildcareAnswerDate RecordedChildcareUnknown 07/31/2018EmploymentAnswerDate WixwthtkQxjybowrmbHaozmoc29/12/2019Hunger ScreeningAnswerDate RecordedWithin the past 12 months we worried whether our food would run out before we got money to buy more.Never True12/10/2024Within the past 12 months the food we bought just didn't last and we didn't have money to get more.Never True12/10/2024CommentsNoSex and Gender Information ValueDate RecordedSex Assigned at BirthNot on fileLegal FecTxdhxk64/06/2015 11:56 AM EDTGender IdentityNot on fileSexual OrientationNot on filedocumented as of this encounter Last Filed Vital Signs Vital SignReadingTime TakenCommentsBlood Pressure--Pulse--Rfmlcvjembx92.9 ??C (96.7 ??F)12/10/2024 2:26 PM EDTRespiratory Rate--Oxygen Saturation--Inhaled Oxygen Concentration--Rzwqrb64.7 kg (178 lb)12/10/2024 2:26 PM VQMThuwtn873.6 cm (5' 4 )12/10/2024 2:26 PM EDTBody Mass Index30.5512/10/2024 2:26 PM EDT documented in this encounter Progress Notes * Kirby Andersen MD - 12/10/2024 2:00 PM EDT Images from the original note were not included. CC: S/P right hip hemiarthroplasty Subjective: HPI DOS: 11/27/24 - Right hip hemiarthroplasty 2 week(s) out Elif Shah is a 79 y.o. female who is here today for a follow-up visit. She previously underwent the aforementioned surgery and returns today for a clinical and radiographic check. She is accompanied by her daughter today. She notes some right hip soreness but her bigger ongoing issue is neck pain. She has been evaluated by the provider at her ECF and started on some baclofen. She continues on heparin subcutaneously for DVT prophylaxis and has been mobilizing with assistance from therapy. Denies previous DEXA or osteoporosis medication. Admits to previous spine fractures earlier this year. Denies fever/chills/numbness/tingling Past Medical, Surgical, and Family Histories: were reviewed during this visit. Social History Occupational History Not on file Tobacco Use Smoking status: Never Smokeless tobacco: Never Vaping Use Vaping status: Not on file Substance and Sexual Activity Alcohol use: Not Currently Drug use: Never Sexual activity: Defer Medications & allergies: were reviewed at during this visit. Objective: Physical Exam General: Well-developed well-nourished Mentation: Alert and oriented. Extremity Exam: Right Hip Inspection: Incision appears overall benign about the anterior hip, no erythema or drainage, there is some remaining Exofin glue Neurovascular Motor: intact EHL, FHL, DF, PF Able to stand with 1-2 minimal assistance IMAGING: I personally viewed X-ray images of right hip, which demonstrate: stable appearance of right hip hemiarthroplasty without evidence of dislocation, periprosthetic fracture or loosening. Will review and confirm findings with the radiologist report when available. Diagnosis: Age-related osteoporosis with current pathological fracture with routine healing History of right hip hemiarthroplasty Closed fracture of neck of right femur, sequela Plan: - Weight bearing: maintain weight bearing as tolerated - Range of motion: No hip precautions - Wound care: Ok to shower Do not soak or submerge incision Ok to leave open to air. Daily dry dressing change as needed for drainage - Anticoagulation: subcutaneous heparin STOP DATE: 12/29/24 - Physical Therapy: Continue therapy at correction facility - Bone Health: Recommend evaluation in osteoporosis clinic - Educational information/handout provided - Follow up 1 month for a clinical check. No x-rays needed at that time unless patient is having increasing pain or change in her symptoms. QUOC ROBERTSON PA-C Based on the following criteria: POST OP GLOBAL I, Kirby Andersen MD, personally performed the face to face evaluation on this patient. I discussed with the patient and confirmed the accuracy and completeness of the aforementioned history prepared by the advance practice provider, and I personally performed the clinical examination of the patient. I discussed the treatment plan with the patient. Patient returns to clinic today now 2 weeks out from right hip hemiarthroplasty. She is overall doing well. She is mobilizing with the use of a walker. X-rays obtained today demonstrate maintained component positioning without evidence of complication. Incision is healing up nicely. We would plan to see the patient back in about 4 weeks for a repeat clinical check. We will not plan to obtain any x-rays at that time unless there is clinical concern. Kirby Andersen MD documented in this encounter Plan of Treatment DateTypeDepartmentCare Team (Latest Contact Info)Llhtamrnilo29/26/2025 1:00 PM ESTOffice Visit [facility] [address] [facility] [address] [place] [phone] Kirby Andersen MD [address] [place], [place] [phone] documented as of this encounter Goals GoalPatient Goal TypeAssociated ProblemsRecent ProgressPatient-Stated?Author <enter goal here> Abbie Holland LSW Note: Evaluation of progress towards goal: plan to go to correction facility for rehab needs documented as of this encounter Visit Diagnoses Diagnosis Age-related osteoporosis with current pathological fracture with routine healing - Primary History of right hip hemiarthroplasty Closed fracture of neck of right femur, sequela documented in this encounter Additional Health Concerns AssessmentNoted TimePHQ-9 Depression Total Score: 5:16 PM EDT documented as of this encounter Care Teams Team MemberRelationshipSpecialtyStart DateEnd Date Amador Lopez MD [address] [place] [address] PCP - GeneralFamily Myftrowb30/8/25documented as of this encounter
--- OUTSIDE RECORDS SUMMARY | 2024-12-10 14:00 | XMS_ITS | Encounter Summary ---
Author Organization [facility] Address [id number] [address] [place] [address] Care Team Providers Care Assembler Utility Buildings Name Role Phone Amador Lopez MD Primary Care Provider [phone] Reason for Visit * ReasonCommentsPost-ops/p R hip dylon (11/27), [facility] will be waiting inwaiting room for patientPost-op Encounter Details DateTypeDepartmentCare Team (Latest Contact Info)Upmtydydjlx96/22/2025 2:00 PM EDTOffice Visit [facility] [address] [place] [address] Kirby Andersen MD [address] [place], [place] [id number] Age-related osteoporosis with current pathological fracture with routine healing (Primary Dx); History of right hip hemiarthroplasty; Closed fracture of neck of right femur, sequela Social History Tobacco UseTypesPacks/DayYears UsedDateSmoking Tobacco: NeverSmokeless Tobacco: NeverAlcohol UseStandard Drinks/WeekCommentsNot Currently0 (1 standard drink = 0.6 oz pure alcohol)[facility] UtilitiesAnswerDate RecordedIn the past 12 months has the electric, gas, oil, or water LUMOback threatened to shut off services in your home?No11/26/2024PHQ-2AnswerDate RecordedTotal Irjlt964PRAPARE - TransportationAnswerDate RecordedIn the past 12 months, [...] a part of a household?No5ChildcareAnswerDate RecordedChildcareUnknown 07/31/2018EmploymentAnswerDate WymkrokoEvmcbbeklvUalqcur45/12/2019Hunger ScreeningAnswerDate RecordedWithin the past 12 months we worried whether our food would run out before we got money to buy more.Never True12/10/2024Within the past 12 months the food we bought just didn't last and we didn't have money to get more.Never True12/10/2024CommentsNoSex and Gender Information ValueDate RecordedSex Assigned at BirthNot on fileLegal LqbKqldvr15/06/2015 11:56 AM EDTGender IdentityNot on fileSexual OrientationNot on filedocumented as of this encounter Last Filed Vital Signs Vital SignReadingTime TakenCommentsBlood Pressure--Pulse--Mypzhbpxfuz37.9 ??C (96.7 ??F)12/10/2024 2:26 PM EDTRespiratory Rate--Oxygen Saturation--Inhaled Oxygen Concentration--Addqlj11.7 kg (178 lb)12/10/2024 2:26 PM ZGVBrqlks608.6 cm (5' 4 )12/10/2024 2:26 PM EDTBody [...] 12/29/24 - Physical Therapy: Continue therapy at half-way facility - [facility]: Recommend evaluation in [...] Plan of Treatment DateTypeDepartmentCare Team (Latest Contact Info)Qlsqpcbgmhm41/26/2025 1:00 PM ESTOffice Visit [facility] [address] [facility] [address] [place] [phone] Kirby Andersen MD [address] [facility] [address] [place], [place] [id number] documented as of this encounter Goals GoalPatient Goal TypeAssociated ProblemsRecent ProgressPatient-Stated?Author <enter goal here> Abbie Holland LSW Note: Evaluation of progress towards goal: plan to go to half-way facility for rehab needs documented as of [...] Date Amador Lopez MD [address] [place] [address] PCP - GeneralFamily Fervfqek38/8/25documented as of this encounter
[2024-12-12] VITALS (31 sets, daily range): BP systolic 145–151; BP diastolic 48–61; PULSE 56–89; TEMP 37.2–37.3; O2SAT 86–96; BMI 30.5
--- OUTSIDE RECORDS SUMMARY | 2024-12-12 18:26 | XMS_ITS | Clinical Summary ---
Author Organization [facility] Address [address] [place] [address] Care Team Providers Care Opening Machine Cleaner Name Role Phone Amador Lopez MD Primary Care Provider [phone] Amador Lopez MD Unavailable Allergies Active AllergyReactionsCriticalityNoted JzljGixzdhjnLgixaydYxrzn01/08/2022 Pxravmimqsalclle24/16/2024CyclobenzaprineItching,Hives,EegmPns9512/11/2012 LrefgqpwkqhVchkldtt91/02/2020ExenatideNausea Only,UnkoBgo9312/27/2012 Other Reaction(s): itching Iodinated Contrast QsoltQpyzn54/19/2014 Other Reaction(s): itching/rash Ljkndqgmnusf77/14/2023LiraglutideNausea Only3PenicillinsItching,Hives, TdceKmj8712/11/20120254Sxckrhpnurhc03/28/0274FqwnajdahvRpzbz90/02/2020Ticagrelor 06/02/2022 Other Reaction(s): sickness TrazodoneNausea Only,GI lbvvgfnuvzq03/30/2020 Medications MedicationSigDispense QuantityRefillsLast FilledStart DateEnd DateStatus aspirin 81 MG chewable tablet Chew 81 mg in the morning.Active nitroglycerin (Nitrostat) 0.[address] 0.4 mg under the tongue every 5 (five) minutes if needed.Active ondansetron ODT (Zofran-ODT) 4 MG disintegrating tablet Indications:NauseaDISSOLVE 1 TABLET ON THE TONGUE EVERY 6 HOURS NEEDED FOR NAUSEA/ VOMITING 56 tablet ctive metoclopramide (Reglan) 5 MG tablet Indications:Early satietyTAKE 1 TABLET BY MOUTH FOUR TIMES A DAY 120 tablet 4Active furosemide (Lasix) 20 MG tablet Indications:Chronic diastolic heart failure (HCC)Take 1 tablet (20 mg) by mouth Daily 90 tablet 4Active nystatin (Mycostatin) 489314 UNIT/GM powder Indications:Skin candidiasisApply 1 application topically in the morning and 1 application in the evening and 1 application before bedtime. 60 g ctive pantoprazole (ProtoNix) 40 MG EC tablet Indications:Gastroesophageal reflux disease without esophagitisTAKE 1 TABLET BY MOUTH TWICE A DAY 180 tablet 4Active hydrALAZINE (Apresoline) 100 MG tablet Indications:Hypertension, unspecified typeTAKE 1 TABLET BY MOUTH THREE TIMES A DAY 270 tablet 5Active buPROPion XL (Wellbutrin XL) 150 MG 24 hr tablet Indications:Other depressionTAKE 1 TABLET BY MOUTH EVERY DAY 90 tablet 5Active glucose blood (THYMETouch Ultra Test) test strip Indications:Type 2 diabetes mellitus with hyperglycemia, without long-term current use of insulin ([facility])1 each by Other route Daily Use as instructed 50 each 5Active Lancets Micro Thin 33G [facility] Indications:Type 2 diabetes mellitus with hyperglycemia, without long-term current use of insulin ([facility])1 each Daily 50 each 5Active cholecalciferol (Vitamin D3) 25 MCG (1000 UT) tablet Indications:Vitamin D deficiency, unspecified,Vitamin D deficiencyTAKE 1 TABLET BY MOUTH EVERY DAY 90 tablet 5Active carvedilol (Coreg) 25 MG tablet Indications:Benign essential hypertensionTake 1 tablet (25 mg) by mouth in the morning and 1 tablet (25 mg) in the evening. Take with meals. 60 tablet 5Active famotidine (Pepcid) 40 MG tablet Indications:Gastroesophageal reflux disease without esophagitisTAKE 1 TABLET BY MOUTH EVERY DAY 90 tablet 5Active acetaminophen (Tylenol) 500 MG tablet Take 1,000 mg by mouth every 8 (eight) hours if needed for mild painActive Blood Glucose Monitoring Suppl (ONE TOUCH ULTRA 2) w/Device kit Indications:Type 2 diabetes mellitus with hyperglycemia, without long-term current use of insulin ([facility])USE DIRECTED 1 kit 5Active fluticasone (Flonase) 50 MCG/ACT nasal spray Indications:Upper respiratory tract infection, unspecified typeAdminister 2 sprays into each nostril Daily Shake gently. Before first use, prime pump. After use, clean tip and replace cap.5Active Continuous Glucose Wildlife And Game Protector (FreeStyle Violet 3 [place]) device Indications:Type 2 diabetes mellitus with hyperglycemia, without long-term current use of insulin (HCC)1 each continuously 1 each 5Active Continuous Glucose Sensor (FreeStyle Violet 3 Sensor) [facility] Indications:Type 2 diabetes mellitus with hyperglycemia, without long-term current use of insulin ([facility])1 each continuously 2 each 1105Active insulin lispro (HumaLOG) 100 UNIT/ML injection Indications:Type 2 diabetes mellitus with hyperglycemia, without long-term current use of insulin ([facility])INJECT 2-10 UNITS UNDER THE SKIN IN THE MORNING AND 2-10 UNITS AT NOON AND 2-10 UNITS IN THE EVENING. INJECT WITH MEALS. 151-200=2 UNITS, 201-250-4 UNITS, 251-300=6 UNITS, 301-350=8 UNITS, 351-400=10UNITS, OVER 400 CALL PROVIDER. 15 each 5Active montelukast (Singulair) 10 MG tablet Indications:Seasonal allergic rhinitis due to pollenTAKE 1 TABLET BY MOUTH EVERYDAY AT BEDTIME 90 tablet 5Active isosorbide mononitrate ER (Imdur) 30 MG 24 hr tablet Indications:Chronic diastolic heart failure (HCC)TAKE 1 TABLET BY MOUTH EVERY DAY *DO NOT CRUSH OR CHEW* 30 tablet 5Active sacubitril-valsartan (Entresto) 24-26 MG tablet Indications:Chronic diastolic heart failure (HCC)TAKE 1 TABLET BY MOUTH IN THE MORNING AND BEFORE BEDTIME 60 tablet 5Active sucralfate (Carafate) 1 g tablet Indications:Gastro-esophageal reflux disease without esophagitis,Esophageal refluxTAKE 1 TABLET BY MOUTH EVERYDAY AT BEDTIME 90 tablet 5Active atorvastatin (Lipitor) 80 MG tablet Indications:DyslipidemiaTAKE 1 TABLET BY MOUTH EVERYDAY AT BEDTIME 90 tablet 3045Active empagliflozin (Jardiance) 25 MG Indications:Type 2 diabetes mellitus with hyperglycemia, without long-term current use of insulin (HCC)TAKE 1 TABLET BY MOUTH EVERY DAY 30 tablet 5045Active temazepam (Restoril) 7.5 MG capsule Indications:Primary insomniaTake 1 capsule (7.5 mg) by mouth as needed at bedtime for sleep 30 capsule 5Active insulin pen needle 29G x 12.7mm misc Indications:Type 2 diabetes mellitus with hyperglycemia, without long-term current use of insulin (HCC)Use to inject 1-4 times daily as directed. 100 each 1105076Active Alcohol Swabs (Alcohol Prep) pads Indications:Type 2 diabetes mellitus with hyperglycemia, without long-term current use of insulin ([facility])Use as directed 100 each 5Active Active Problems ProblemNoted DateDiagnosed DateMedicare annual wellness visit, subsequent 05/27/2024 Assessment & Plan (05/27/2024 12:15 PM EDT): Reviewed labs. Discussed proper diet and regular aerobic exercise. Need to increase walking and continue PT exercises. Smaller portions and limit total calories. Tetanus every 10 years. Advised not to smoke. Discussed daily Aspirin therapy. Type 2 diabetes mellitus with diabetic xfzkbfplwhikxydl49/29/2025Left elbow pain 02/29/2024 Assessment & Plan (02/29/2024 2:12 PM EST): Pain improved and monitor. Class 1 obesity due to excess calories with serious comorbidity and body mass index (BMI) of 33.0 to 33.9 in adult11/12/2023 Assessment & Plan (02/29/2024 2:12 PM EST): Weight loss indicated. Arachnoid cyst03/13/2023AD in [place] qjolgj2403/13/2023 Assessment & Plan (11/12/2023 3:43 PM EDT): No symptoms and follow with cardiology. Cerebrovascular disease, eialzvpfptz84/23/2024hronic xwseqqmqritv98/23/2024 Whphqyeowisg24/23/2024hronic diastolic heart qbdmypa5903/13/2023 Assessment & Plan (08/28/2024 2:26 PM EDT): Edema stable and continue medication. Elevate legs PRN. Follow up with cardiology. Assessment & Plan (02/29/2024 2:12 PM EST): Edema stable and continue medication. Elevate legs PRN. Follow up with cardiology. Assessment & Plan (11/12/2023 3:41 PM EDT): Edema stable and continue medication. Elevate legs PRN. Follow up with cardiology. Assessment & Plan (03/13/2023 2:35 PM EST): Edema stable and continue medication. Elevate legs PRN. Follow up with cardiology. Hlygftoccesc74/23/2024 Assessment & Plan (08/28/2024 2:26 PM EDT): Pain unchanged and use norco PRN. Try to increase activity and walk regularly. Assessment & Plan (11/12/2023 3:41 PM EDT): Pain unchanged and use norco PRN. Try to increase activity and walk regularly. Assessment & Plan (03/13/2023 2:36 PM EST): Pain unchanged and use norco PRN. Try to increase activity and walk regularly. Generalized anxiety /23/2024 Assessment & Plan (08/28/2024 2:26 PM EDT): Symptoms stable with medication and monitor. Assessment & Plan (11/12/2023 3:42 PM EDT): Symptoms stable with medication and monitor. Assessment & Plan (03/13/2023 2:36 PM EST): Symptoms stable with medication and monitor. Gastroesophageal reflux svlwvcq1603/13/2023 Assessment & Plan (11/12/2023 3:42 PM EDT): Symptoms controlled with medication and continue. Assessment & Plan (03/13/2023 2:36 PM EST): Symptoms controlled with medication and continue. 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 Assessment & Plan (11/12/2023 3:42 PM EDT): Mood stable with medication and continue. Assessment & Plan (03/13/2023 2:36 PM EST): Mood stable with medication and continue. Overflow ebcuoahnmqrf83/23/2024rimary osteoarthritis of both knees03/13/2023 Assessment & Plan (03/05/2024 12:25 PM EST): Pain worse and check x-ray. Refer to ortho and use norco PRN. Refer for home health due to falls and unsteady gait. Assessment & Plan (11/12/2023 3:42 PM EDT): Pain stable and use norco PRN. Assessment & Plan (03/13/2023 2:36 PM EST): Pain stable and use norco PRN. Stage 3b chronic kidney disease (CKD)03/13/2023 Assessment & Plan (02/29/2024 2:13 PM EST): Check labs Vitamin D oposphdwoz40/23/2024Type 2 diabetes mellitus with hyperglycemia, without long-term current use of mbblitn3603/13/2023 Assessment & Plan (08/28/2024 2:27 PM EDT): Reports BS improved and due for A1C. Stick to ADA diet and limit carbs. Assessment & Plan (05/27/2024 12:15 PM EDT): Medication adjusted in SNF and will check A1C next visit. Assessment & Plan (02/29/2024 2:13 PM EST): Not checking BS and due for A1C. BS elevated and not controlled. Script for CGM to pharmacy. Stick to ADA diet and limit carbs. Assessment & Plan (11/12/2023 3:42 PM EDT): Not checking BS and due for A1C. Stick to ADA diet and limit carbs. Assessment & Plan (03/13/2023 2:37 PM EST): Not checking BS and due for A1C. Stick to ADA diet and limit carbs. Benign essential jsniiyyioftp26/23/2024 Assessment & Plan (08/28/2024 2:26 PM EDT): BP low and c/o lightheadedness. Stop amlodipine and continue to monitor. Assessment & Plan (05/27/2024 12:14 PM EDT): BP elevated today but did not take medication and usually normal. Continue to monitor PRN. Assessment & Plan (02/29/2024 2:12 PM EST): BP elevated today but did not take medication and usually normal. Continue to monitor PRN. Assessment & Plan (11/12/2023 3:41 PM EDT): BP elevated today but patient with worsening pain and usually normal. Continue to monitor PRN. Assessment & Plan (03/13/2023 2:35 PM EST): BP elevated today but patient upset and usually normal. Continue to monitor PRN. Primary wbnelrsm92/23/2024 Assessment & Plan (08/28/2024 2:27 PM EDT): Not sleeping well without restoril and resume. Assessment & Plan (11/12/2023 3:42 PM EDT): Sleeping well with restoril and continue. Encounter for long-term (current) use of btfospesjsa24/23/2024 Resolved Problems ProblemNoted DateDiagnosed DateResolved DateAcute UTI401/11/2024 Assessment & Plan (11/12/2023 3:41 PM EDT): History suggestive UTI and treat. Take bactrim for infection. Increase water intake and cranberry juice. Use motrin or tylenol for discomfort. Encounters DateTypeDepartmentCare MezcUnnyddwtffm73/25/2025Results Follow-Up [facility] [address] [facility] [place] [phone] Amador Lopez MD Hemoglobin A1c10/13/2024Patient Outreach [facility] [address] [place] [address] Miguel Blank MA from Last 3 Months Family History Medical HistoryRelationNameCommentsStrokeFatherBreast cancerMotherCancerMother RelationNameStatusCommentsFatherDeceasedMotherDeceased Social History Tobacco UseTypesPacks/DayYears UsedDateSmoking Tobacco: NeverPassive Smoke Exposure: NeverSmokeless Tobacco: Never Tobacco Cessation:Counseling Given: Yes Alcohol UseStandard Drinks/WeekCommentsNever0 (1 standard drink = 0.6 oz pure alcohol)B1300 Health LiteracyAnswerDate RecordedHow often do you need to have someone help you when you read instructions, pamphlets, or other written material from your doctor or pharmacy?Catfbvtzr74/03/2024Social Connection and Isolation PanelAnswerDate RecordedIn a typical week, how many times do you talk on the phone with family, friends, or neighbors?Three times a week01/22/2024How often do you get together with friends or relatives?Twice a week01/22/2024How often do you attend lutheran or confucianism services?1 to 4 times per year01/22/2024 Do you belong to any clubs or organizations such as lutheran groups, unions, fraternal or athletic groups, or school groups?No01/22/2024How often do you attend meetings of the clubs or organizations you belong to?Never01/22/2024re you , , , , never , or living with a partner?Rkidqmt4001/22/2024UDIT-CAnswerDate RecordedQ1: How often do you have a drink containing alcohol?Never01/22/2024Q2: How many drinks containing alcohol do you have on a typical day when you are drinking?Patient does not drink 01/22/2024Q3: How often do you have six or more drinks on one occasion?Never 01/22/2024Overall Financial Resource Strain (CARDIA)AnswerDate RecordedHow hard is it for you to pay for the very basics like food, housing, medical care, and heating?Not very hard01/22/2024HQ-2AnswerDate RecordedPatient Health Questionnaire-2 Vyezx850Finmck[facility] [place] of Occupational Health - Occupational Stress QuestionnaireAnswerDate RecordedDo you feel stress - tense, restless, nervous, or anxious, or unable to sleep at night because yourmind is troubled all the time - these days?To some fxgeqn7501/22/2024Exercise Vital Sign AnswerDate RecordedOn average, how many days per week do you engage in moderate to strenuous exercise (like a brisk walk)?0 days01/22/2024On average, how many minutes do you engage in exercise at this level?0 min01/22/2024Hunger Vital Sign AnswerDate RecordedWithin the past 12 months, you worried that your food would run out before you got the money to buymore.Never true01/22/2024Within the past 12 months, the food you bought just didn't last and you didn't have money to get more.Never true01/22/2024RAPARE - TransportationAnswerDate RecordedIn the past 12 months, has lack of transportation kept you from medical appointments or from getting medications?No01/22/2024In the past 12 months, has lack of transportation kept you from meetings, work, or from getting things needed for daily living?No01/22/2024Housing Stability Vital SignAnswerDate RecordedIn the last 12 months, was there a time when you were not able to pay the mortgage or rent on time?No01/22/2024In the past 12 months, how many times have you moved where you were living?012/03/2024At any time in the past 12 months, were you homeless or living in a half-way (including now)?No4Comments UnknownSex and Gender InformationValueDate RecordedSex Assigned at BirthNot on fileLegal WrmWvodew00/15/2023 7:18 PM EDTGender IdentityNot on fileSexual OrientationNot on file Last Filed Vital Signs Vital SignReadingTime TakenCommentsBlood Uzraeazd991/4007 1:45 PM EDT Ywicr793108/28/2024 1:45 PM WNESbmpxrtpzcw41.4 ??C (97.5 ??F)08/28/2024 1:45 PM EDTRespiratory Gcko254809/04/2024 4:38 PM EDTOxygen Arwcyuplre99%08/28/2024 1:45 PM EDTInhaled Oxygen Concentration--Abwpcr09.8 kg (165 lb)09/04/2024 4:38 PM EDT Wienhi130.5 cm (5' 2 )09/04/2024 4:38 PM EDTBody Mass Index30.18009/04/2024 4:38 PM EDT Plan of Treatment Health MaintenanceDue DateLast DoneCommentsDiabetes: Retinopathy Screening 07/10/1955Pneumococcal Vaccine: 65+ Years (1 of 2 - PCV)07/10/1966Influenza Vaccine (#1)51, 11/23/2023, 11/23/2021, Additional history existsDiabetes: Urine Protein Qaqzfomre61/29/34907003/19/2024, 03/19/2024, 03/19/2024, Additional history existsDiabetes: Hemoglobin A1C04/12/2025 10/10/2024, 10/10/2024, 03/19/2024, Additional history existsColonoscopy Zmvblmilcjlf18/22/2021Colorectal Cancer ScreeningDiscontinuedCT Colonography DiscontinuedFIT-DNADiscontinuedFITDiscontinuedFOBTDiscontinuedSigmoidoscopy Discontinued Procedures Procedure NamePriorityDate/TimeAssociated DiagnosisCommentsHEMOGLOBIN U8CQgsojcv 10/10/2024 2:39 PM EDT MICROALBUMIN / CREATININE URINE EERBOMqbrbkw48/29/2025 9:24 AM EST from Last 3 Months or Most Recently Relevant to Health Maintenance Results * (ABNORMAL) Hemoglobin A1c (10/10/2024 2:39 PM EDT)ComponentValueRef RangeTest MethodAnalysis TimePerformed AtPathologist SignatureHEMOGLOBIN A1C7.0(H)4.4 - 5.6 %PROMEDICAComment: ?ADA Guidelines ?Result ?HgbA1c ? Normal : ? less than 5.7 % ? Prediabetes : ?5.7 % ??to 6.4 % Diabetes : > 6.4 % ??Use with caution in patients with abnormal hemoglobin variants as ??the half-life of red blood cells and in vivo glycation rates are ??affected. AVERAGE NMSYXKK137rl/dLPROMEDICAComment: ?? PERFORMED AT [facility] [address],[place] [address] Specimen (Source)Anatomical Location / LateralityCollection Method / Volume Collection TimeReceived Time10/10/2024 2:39 PM EDT10/10/2024 6:16 PM EDT Narrative Authorizing ProviderResult TypeResult StatusMarc John QUICK BLOOD ORDERABLES Final ResultPerforming OrganizationAddressCity/State/ZIP CodePhone Number [place] * (ABNORMAL) Microalbumin / creatinine urine ratio (03/19/2024 9:24 AM EST) ComponentValueRef RangeTest MethodAnalysis TimePerformed AtPathologist SignatureMICROALBUMIN, CYZIW671.1(H)0.0 - 1.9 mg/dLPROMEDICAURINE CREAT66.27 mg/dLPROMEDICAALB/CREAT RATIO3,668.3(H)0.0 - 30.0 mg/g creatPROMEDICAComment: PERFORMED AT [facility] [address],[place] [address] Specimen (Source)Anatomical Location / LateralityCollection Method / Volume Collection TimeReceived Time03/19/2024 9:24 AM EST03/19/2024 10:41 AM EST Narrative Authorizing ProviderResult TypeResult StatusMarc John QUICK URINE ORDERABLES Final ResultPerforming OrganizationAddressCity/State/ZIP CodePhone Number [place] from Last 3 Months or Most Recently Relevant to Health Maintenance Insurance Care Teams Team MemberRelationshipSpecialtyStart DateEnd Date Amador Lopez MD PCP - GeneralFamily Medicine04/25/23 Amador Lopez MD [address] [place] [address] BAO Tijerina MA02/20/24
--- OUTSIDE RECORDS SUMMARY | 2024-12-12 18:26 | XMS_ITS | Clinical Summary ---
Author Organization [facility] Address [address] [facility] [place] [address] Care Team Providers Care Acid Purifier Name Role Phone Unavailable Primary Care Provider Unavailabl e Source Comments The following information is NOT included in Care Everywhere downloads:Psychiatric notes, ECG results, Cardiac Rehab notes, Pulmonary Function notes, data from SmartForms (includes but not limited toPregnancy data,audiograms, eye exams, pre-surgical evaluation notes, well-child exam data).[facility] Social History Tobacco UseTypesPacks/DayYears UsedDateSmoking Tobacco: Never Assessed CommentsUnknownSex and Gender InformationValueDate RecordedSex Assigned at Not on fileLegal FyoTqybej62/07/2022 10:47 AM EDTGender IdentityNot on file Sexual OrientationNot on file Last Filed Vital Signs Vital SignReadingTime TakenCommentsBlood Swpwelxv263/6105 7:30 PM EDT Mmjjs4543 7:30 PM EDTTemperature--Respiratory Vnqv7899 7:30 PM EDTOxygen Ctdfklcbqx09%06/23/2021 7:30 PM EDTInhaled Oxygen Concentration-- Weight--Height--Body Mass Index-- Plan of Treatment Health MaintenanceDue DateLast DoneCommentsHepatitis C Yflsfpiz29/22/1966Tdap Ofotadj1707/10/1965Hepatitis A (HAV) Vaccine (optional start 19+ years)07/10/1966 Pneumococcal Vaccine(s) (50+ yrs) (1 of 1 - PCV)07/10/1997Shingles (RZV) Vaccine (1 of 2)07/10/1997Annual Wellness Visit (G0438)02/19/1999Hepatitis B (HBV) Vaccine (optional start 60+ years)2007one Vnobkjuwrdgw91/22/2013RSV vaccine (adult) (1 - 1-dose 75+ series)3COVID-19 Vaccine ( season)2024Influenza Vaccine (#1)2024Pap SmearDiscontinued Insurance
--- OUTSIDE RECORDS SUMMARY | 2024-12-12 18:26 | XMS_ITS | Clinical Summary ---
Author Organization [facility] Address [address] [place] [address] Phone Care Team Providers Care Cattle Dehorner Name Role Phone Unavailable Primary Care Provider Unavailabl e Social History Tobacco UseTypesPacks/DayYears UsedDateSmoking Tobacco: Never Assessed CommentsUnknownSex and Gender InformationValueDate RecordedSex Assigned at Not on fileLegal CvwSzckzv67/26/2022 6:50 AM ESTGender IdentityNot on fileSexual OrientationNot on file Plan of Treatment Health MaintenanceDue DateLast DoneCommentsLipid Panel1947Yearly Adult Wchfbzei99[birth year]22/1946Hepatitis C Hkdipkkgh46/22/1966DTaP/Tdap/Td Vaccines (1 - Tdap)07/10/1969Pneumococcal Vaccine (1 of 1 - PCV)07/10/1997Zoster Vaccines (1 of 2)07/10/1997Bone Density Scan07/10/2012RSV High Risk: (Elderly (60+) or Population) (1 - 1-dose 75+ series)07/10/2022Influenza Vaccine (#1) 2024OVID-19 Vaccine ( - season)2024HIB VaccinesAged OutNo longer eligible based on patient's age to complete this topicHPV VaccinesAged OutNo longer eligible based on patient's age to complete this topicHepatitis A VaccinesAged OutNo longer eligible based on patient's age to complete this topic Hepatitis B VaccinesAged OutNo longer eligible based on patient's age to complete this topicIPV VaccinesAged OutNo longer eligible based on patient's age to complete this topicMeningococcal VaccineAged OutNo longer eligible based on patient's age to complete this topicRotavirus VaccinesAged OutNo longer eligible based on patient's age to complete this topic
--- OUTSIDE RECORDS SUMMARY | 2024-12-12 18:27 | XMS_ITS | Patient Health Record ---
Author Organization [facility] in [place] Address [address] [place] [address] Care Team Providers Care Safety Council Director Name Role Phone John BARRIOS, Amador Primary Care Provider Evonne del toro KjOniel [phone] Results Component Value Reference Range Notes BNP Reviewed date:04/02/2024 10:04:46 PM Interpretation: Performing Lab: Notes/Report: [facility] , NT Pro B Type Natriuretic Pept 1433.0 <=1800.0 p g/mL Performing Lab:see note - [facility] LBLACTATE or LACTIC ACID Reviewed date:04/02/2024 10:04:46 PM Interpretation: Performing Lab: Notes/Report: Comment er blood if possible [facility] ,Lactate/Lactic Acid1.90.4-2.0 mmol/LPerforming Lab:see note - [facility] LBMAGNESIUM Reviewed date:04/02/2024 10:04:46 PM Interpretation: Performing Lab: Notes/Report: [facility] ,Magnesium2.21.8-2.4 mg/dLPerforming Lab:see note - [facility] LBT4 Reviewed date:04/02/2024 10:04:46 PM Interpretation: Performing Lab: Notes/Report: [facility] ,T4 Fqriayddx44.204.80-13.90 ug/dLPerforming Lab:see note - [facility] LBTSH Reviewed date:04/02/2024 10:04:46 PM Interpretation: Performing Lab: Notes/Report: [facility] ,Thyroid Stimulating Hormone1.9540.358-3.740 uIU/mLPerforming Lab:see noteML - [facility] LBTroponin I High Sensitivity Reviewed date:04/02/2024 10:04:46 PM Interpretation: Performing Lab: Notes/Report: [facility] ,Troponin I High Hyzmkhwoxim99.44.0-51.3 pg/mL UNIVERSAL DEFINITION OF MYOCARDIAL INFARCTION. THE UPPER HAS BEEN CONFIRMED THE DECISION THRESHOLD FOR [place] USED IN ISOLATION BUT SHOULD BE INTERPRETED IN CONJUNCTION 99TH PERCENTILE = 51.4 PG/ML REFERENCE LIMIT (URL) OF TROPONIN, DEFINED THE 99TH DIAGNOSIS. WITH OTHER DIAGNOSTIC AND CLINICAL INFORMATION. CUT-OFF POINTS HAVE BEEN ESTABLISHED BASED ON THE FOURTH PERCENTILE OF cTnI DISTRIBUTION IN A REFERENCE POPULATION, NOTE: HIGH-SENSITIVITY TROPONIN ASSAY IS NOT INTENDED TO BE Performing Lab:see noteML - [facility] LBCBC AUTO DIFF Reviewed date:04/03/2024 08:07:01 PM Interpretation: Performing Lab: Notes/Report: [facility] ,White Blood Count7.74.0-11.0 10 3/uLRed Blood Count3.594.20-5.40 10 6/uL Dluywokngk93.112.0-16.0 g/vKZmrqypwxhj13.436.0-48.0 %Mean Corpuscular Rvzlbj99.0 81.0-99.0 fLMean Corpuscular Uesevbkofe63.926.7-34.0 pgMean Corpuscular HGB Conc 33.229.9-35.2 g/dLRed Cell Distribution Width12.311.0-15.0 %Platelet Gxyey292 150-450 10 3/uLMean Platelet Asxavr56.49.5-13.5 fLNeutrophils Percent Auto63.2 43.0-75.0 %Lymphocytes Percent Auto21.820.5-60.0 %Monocytes Percent Auto10.81.7- 12.0 %Eosinophils Percent Auto3.40.9-7.0 %Basophils Percent Auto0.50.2-2.0 % Immature Granulocytes Pct Auto0.30.0-0.5 %Neutrophils Absolute Auto4.81.4-6.5 10 3/uLLymphocytes Absolute Auto1.71.2-3.8 10 3/uLMonocytes Absolute Auto0.80.3-0.8 10 3/uLEosinophils Absolute Auto0.30.0-0.7 10 3/uLBasophils Absolute Auto0.00.0- 0.1 10 3/uLImmature Granulocytes Abs Auto0.020.00-0.03 10 3/uLPerforming Lab:see noteML - [facility] LBPROF CHEM 8 (BAS METB) Reviewed date:04/03/2024 08:07:01 PM Interpretation: Performing Lab: Notes/Report: [facility] ,Gybnkh474852-441 mmol/LPotassium3.83.5-5.1 mmol/JCzxohvbw30812-032 mmol/LCarbon Sinyvlj56.321.0-32.0 mmol/LAnion Gap9.3Jieqczq51931-595 mg/dLBlood Urea Nitrogen 27.07.0-18.0 mg/dLCreatinine1.980.55-1.02 mg/dLEstimated GFR ( Utwtguh96 >=60 mL/min/1.73m 2Estimated GFR (Non- Ame25>=60 mL/min/1.73m 2BUN Creatinine Ratio13.5Canuxtz8.28.5-10.1 mg/dLPerforming Lab:see noteML - [facility] LBCBC AUTO DIFF Reviewed date:04/04/2024 06:53:52 AM Interpretation: Performing Lab: Notes/Report: [facility] ,White Blood Count7.84.0-11.0 10 3/uLRed Blood Count3.494.20-5.40 10 6/uL Weyiotlpja15.712.0-16.0 g/iVUxndetdypf96.236.0-48.0 %Mean Corpuscular Skxvab96.1 81.0-99.0 fLMean Corpuscular Unqlxfrcyh45.726.7-34.0 pgMean Corpuscular HGB Conc 32.229.9-35.2 g/dLRed Cell Distribution Width12.411.0-15.0 %Platelet Nssil803 150-450 10 3/uLMean Platelet Gfelhl15.79.5-13.5 fLNeutrophils Percent Auto59.8 43.0-75.0 %Lymphocytes Percent Auto24.520.5-60.0 %Monocytes Percent Auto11.31.7- 12.0 %Eosinophils Percent Auto3.60.9-7.0 %Basophils Percent Auto0.50.2-2.0 % Immature Granulocytes Pct Auto0.30.0-0.5 %Neutrophils Absolute Auto4.61.4-6.5 10 3/uLLymphocytes Absolute Auto1.91.2-3.8 10 3/uLMonocytes Absolute Auto0.90.3-0.8 10 3/uLEosinophils Absolute Auto0.30.0-0.7 10 3/uLBasophils Absolute Auto0.00.0- 0.1 10 3/uLImmature Granulocytes Abs Auto0.020.00-0.03 10 3/uLPerforming Lab:see [facility] LBPROF CHEM 8 (BAS METB) Reviewed date:04/04/2024 06:53:52 AM Interpretation: Performing Lab: Notes/Report: [facility] ,Unrqpe821203-440 mmol/LPotassium3.93.5-5.1 mmol/SBchstbqf06724-826 mmol/LCarbon Solorky89.221.0-32.0 mmol/LAnion Gap9.6Vhyhryn48443-073 mg/dLBlood Urea Nitrogen 30.07.0-18.0 mg/dLCreatinine2.000.55-1.02 mg/dLEstimated GFR ( Gtwdhvo70 >=60 mL/min/1.73m 2Estimated GFR (Non- Ame24>=60 mL/min/1.73m 2BUN Creatinine Ratio15.8Dyzlzcm9.48.5-10.1 mg/dLPerforming Lab:see note - [facility] LBBNP Reviewed date:04/22/2024 07:48:52 PM Interpretation: Performing Lab: Notes/Report: Comment from ER blood collection [facility] ,NT Pro B Type Natriuretic Cbtk6778.0<=1800.0 pg/mL Quinn at 1919 RESULTS CALLED TO JOSE GRAHAM RN @BY Tyra Martin Performing Lab:see [facility] LBCBC AUTO DIFF Reviewed date:04/23/2024 09:30:04 PM Interpretation: Performing Lab: Notes/Report: [facility] ,White Blood Count7.84.0-11.0 10 3/uLRed Blood Count3.074.20-5.40 10 6/uL Hemoglobin9.212.0-16.0 g/rDRbfaariqhu67.636.0-48.0 %Mean Corpuscular Dovlxr15.4 81.0-99.0 fLMean Corpuscular Odyyvhkkjt60.026.7-34.0 pgMean Corpuscular HGB Conc 31.129.9-35.2 g/dLRed Cell Distribution Width12.111.0-15.0 %Platelet Nssyr162 150-450 10 3/uLMean Platelet Dsrwic48.19.5-13.5 fLNeutrophils Percent Auto70.1 43.0-75.0 %Lymphocytes Percent Auto11.920.5-60.0 %Monocytes Percent Auto11.31.7- 12.0 %Eosinophils Percent Auto5.90.9-7.0 %Basophils Percent Auto0.30.2-2.0 % Immature Granulocytes Pct Auto0.50.0-0.5 %Neutrophils Absolute Auto5.51.4-6.5 10 3/uLLymphocytes Absolute Auto0.91.2-3.8 10 3/uLMonocytes Absolute Auto0.90.3-0.8 10 3/uLEosinophils Absolute Auto0.50.0-0.7 10 3/uLBasophils Absolute Auto0.00.0- 0.1 10 3/uLImmature Granulocytes Abs Auto0.040.00-0.03 10 3/uLPerforming Lab:see noteML - [facility] LBCA echo doppler complete Reviewed date:04/23/2024 09:30:04 PM Interpretation: Performing Lab: Notes/Report: Source Facility: [facility]-[address] [place] [address] [place] [address] Cardiology Report Signed Patient: RIVKA TURNER MR#: [id number] : 1945 Acct:[id number] Age/Sex: 78 / F ADM Date: 04/22/24 Loc: [place] 203-[address]: Sid Woodall M.D. Ordering Physician: Sid Woodall M.D. Date of Service: 04/23/24 Procedure(s): CA echo doppler complete Accession Number(s): [id number] cc: Sid Woodall M.D.; Amador Lopez M.D. Patient Name: RIVKA TURNER MR#: [id number] : 1945 Exam Date: 04/23/2024 Ordering Doctor: DR Sid Woodall . ECHOCARDIOGRAM REPORT PROCEDURE: CA ECHO DOPPLER COMPLETE INDICATIONS: elevated trop and bnp, mi, cardiac stent, hypertension, diabetes COMPARISON: None. DESCRIPTION: COMPLETE ECHOCARDIOGRAM Real-time transthoracic echocardiography with 2D, M-mode, spectral and color flow Doppler performed. QUALITY: LEFT VENTRICLE: Normal chamber size. Mild concentric left ventricular hypertrophy. Normal systolic function. LV EF: Normal left ventricular ejection fraction, (60-65%). DIASTOLIC: Grade II diastolic dysfunction. Doppler studies are consistent with elevated filling pressures. ATRIAL SEPTUM: LEFT ATRIUM: Moderate dilatation. RIGHT ATRIUM: Normal chamber size. RIGHT VENTRICLE: Normal chamber size. Normal systolic function. TRICUSPID VALVE: Normal mobility and thickness. No stenosis with trivial regurgitation. Unable to calculate right-sided pressures due to lack of measurable tricuspid regurgitation. MITRAL VALVE: Normal mobility and thickness. No evidence of mitral valve stenosis. Mild mitral annular calcification. Trivial mitral regurgitation. AORTIC VALVE: Normal trileaflet appearance. Mildly calcified aortic valve. Normal leaflet mobility. No evidence of aortic valve stenosis. No aortic regurgitation. AORTIC ROOT: Normal diameter and appearance. PULMONIC VALVE: Not well visualized. No stenosis. No regurgitation. PERICARDIUM: No evidence of pericardial effusion. IVC: IVC is mildly dilated, does not fully collapse. PLEURA: CONCLUSION: 1. Mild concentric left ventricular hypertrophy with normal systolic function. Estimated LVEF is 60-65%. 2. Normal right ventricular size and systolic function. 3. Grade 2 diastolic dysfunction. Doppler studies are consistent with elevated filling pressures. 4. No significant valvular dysfunction. 5. Unable to assess right-sided pressures due to lack of measurable tricuspid regurgitation. 6. No pericardial effusion. Adult Echocardiography Procedure Report Left Ventricle LVEDD (3.7 - 5.6 cm): 4.33 cm LVESD (2.2 - 4.0 cm): 2.62 cm LVIVS thickness (0.6 - 1.2 cm): 1.30 cm LVPW thickness (0.5 - 1.0 cm): 1.32 cm e': 0.06 m/s E - e': 18.70 LVOT Max Gradient: 3.28 mm[Hg] LVOT Area (cm2): 0.91 m/s Peak Velocity (LVOT): 0.91 m/s Mean Velocity (LVOT): 0.62 m/s LVOT Diameter 2.15 cm Left Atrium LA Volume Index (2D A2C): 43.50 ml/m2 Left Atrium Systolic Dimension: 4.09 cm Mitral Valve MV E to A Ratio: 1.51 Mitral Valve A-Wave Peak Velocity: 0.73 m/s Mitral Valve E-Wave Peak Velocity: 1.10 m/s Right Ventricle Aorta AO Root Diam: 3.29 cm Aortic Valve AoV Area (Peak Hood): 2.54 cm2, 2.54 cm2 AoV Area (VTI): 3.09 cm2, 3.09 cm2 Peak Velocity(Antegrade Flow): 1.29 m/s Peak Gradient(Antegrade Flow): 6.69 mm[Hg] Mean Velocity(Antegrade Flow): 0.80 m/s Mean Gradient(Antegrade Flow): 3.03 mm[Hg] Velocity Time Integral: 29.09 cm Tricuspid Valve Pulmonic Valve Mean Gradient: 2.44 mm[Hg] Mean Velocity: 0.75 m/s Peak Velocity: 1.05 m/s, 1.00 m/s Peak Gradient: 4.01 mm[Hg], 4.38 mm[Hg] Right Atrium Right Atrium Systolic Pressure: 41.63 ml, 41.63 ml Dictated by: Carolina Lucio M.D. on 04/23/2024 at 17:42 Approved by: Carolina Lucio M.D. on 04/23/2024 at 17:46 Dictated By: CAROLINA LUCIO Signed By: 04/23/241746 DD/ 45 TD/TT: Insurance Sales Producer:Troponin I High Sensitivity Reviewed date:04/23/2024 09:30:04 PM Interpretation: Performing Lab: Notes/Report: [facility] ,Troponin I High Colpniecoew439.74.0-51.3 pg/mL USED IN ISOLATION BUT SHOULD BE INTERPRETED IN CONJUNCTION WITH OTHER DIAGNOSTIC AND CLINICAL INFORMATION. CUT-OFF POINTS HAVE BEEN ESTABLISHED BASED ON THE FOURTH RESULTS CALLED TO HELLEN FOSTER RN AT 0856 REFERENCE LIMIT (URL) OF TROPONIN, DEFINED THE 99TH NOTE: HIGH-SENSITIVITY TROPONIN ASSAY IS NOT INTENDED TO BE DIAGNOSIS. UNIVERSAL DEFINITION OF MYOCARDIAL INFARCTION. THE UPPER 99TH PERCENTILE = 51.4 PG/ML PERCENTILE OF cTnI DISTRIBUTION IN A REFERENCE POPULATION, HAS BEEN CONFIRMED THE DECISION THRESHOLD FOR [place] Performing Lab:see noteML - [facility] LBTroponin I High Sensitivity Reviewed date:04/23/2024 09:30:04 PM Interpretation: Performing Lab: Notes/Report: [facility] ,Troponin I High Jstlyijsman966.34.0-51.3 pg/mL HAS BEEN CONFIRMED THE DECISION THRESHOLD FOR [place] RESULTS CALLED TO HELLEN FOSTER RN AT 1347 WITH OTHER DIAGNOSTIC AND CLINICAL INFORMATION. REFERENCE LIMIT (URL) OF TROPONIN, DEFINED THE 99TH DIAGNOSIS. NOTE: HIGH-SENSITIVITY TROPONIN ASSAY IS NOT INTENDED TO BE CUT-OFF POINTS HAVE BEEN ESTABLISHED BASED ON THE FOURTH PERCENTILE OF cTnI DISTRIBUTION IN A REFERENCE POPULATION, 99TH PERCENTILE = 51.4 PG/ML UNIVERSAL DEFINITION OF MYOCARDIAL INFARCTION. THE UPPER USED IN ISOLATION BUT SHOULD BE INTERPRETED IN CONJUNCTION Performing Lab:see noteML - [facility] LBECG 12 lead Reviewed date:04/24/2024 09:06:49 PM Interpretation: Performing Lab: Notes/Report: Source Facility: [facility]-[address] [place] [address] [place] [address] Electrocardiograph Report Signed Patient: RIVKA TURNER MR#: [id number] : 1945 Acct:[id number] Age/Sex: 78 / F ADM Date: 04/22/24 Loc: [place] - Attending Dr: Sid Woodall M.D. Ordering Physician: Sid Woodall M.D. 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 Measurements Intervals [place] Rate: 76 P: 65 VA: 158 QRS: 17 QRSD: 95 T: 63 QT: 399 QTc: 449 Interpretive Statements SINUS RHYTHM WITH FREQUENT VENTRICULAR PREMATURE COMPLEXES NONSPECIFIC T-WAVE ABNORMALITY ABNORMAL ECG Compared to ECG 04/23/2024 11:37:30 Ventricular premature complex(es) now present Sinus bradycardia no longer present T-wave abnormality still present Electronically Signed On 04-24-2024 6:41:20 EST by CAROLINA LUCIO M.D. Dictated By: CAROLINA LUCIO Signed By: 04/24/24 0641 DD/ 1729 TD/TT: Insurance Sales Producer:Troponin I High Sensitivity Reviewed date:04/23/2024 09:30:04 PM Interpretation: Performing Lab: Notes/Report: [facility] ,Troponin I High Rqgtviuesel906.04.0-51.3 pg/mL CUT-OFF POINTS HAVE BEEN ESTABLISHED BASED ON THE FOURTH DIAGNOSIS. 99TH PERCENTILE = 51.4 PG/ML USED IN ISOLATION BUT SHOULD BE INTERPRETED IN CONJUNCTION RESULTS CALLED TO HELLEN FOSTER RN NOTE: HIGH-SENSITIVITY TROPONIN ASSAY IS NOT INTENDED TO BE WITH OTHER DIAGNOSTIC AND CLINICAL INFORMATION. UNIVERSAL DEFINITION OF MYOCARDIAL INFARCTION. THE UPPER REFERENCE LIMIT (URL) OF TROPONIN, DEFINED THE 99TH PERCENTILE OF cTnI DISTRIBUTION IN A REFERENCE POPULATION, HAS BEEN CONFIRMED THE DECISION THRESHOLD FOR [place] Performing Lab:see noteML - [facility] LBTroponin I High Sensitivity Reviewed date:04/23/2024 09:30:04 PM Interpretation: Performing Lab: Notes/Report: [facility] ,Troponin I High Yuxlmesozpc711.14.0-51.3 pg/mL USED IN ISOLATION BUT SHOULD BE INTERPRETED IN CONJUNCTION UNIVERSAL DEFINITION OF MYOCARDIAL INFARCTION. THE UPPER DIAGNOSIS. WITH OTHER DIAGNOSTIC AND CLINICAL INFORMATION. RESULTS CALLED TO JOSE GRAHAM RN at 2103 PERCENTILE OF cTnI DISTRIBUTION IN A REFERENCE POPULATION, REFERENCE LIMIT (URL) OF TROPONIN, DEFINED THE 99TH NOTE: HIGH-SENSITIVITY TROPONIN ASSAY IS NOT INTENDED TO BE CUT-OFF POINTS HAVE BEEN ESTABLISHED BASED ON THE FOURTH HAS BEEN CONFIRMED THE DECISION THRESHOLD FOR [place] 99TH PERCENTILE = 51.4 PG/ML Performing Lab:see noteML - [facility] LBTroponin I High Sensitivity Reviewed date:04/24/2024 09:06:49 PM Interpretation: Performing Lab: Notes/Report: [facility] ,Troponin I High Ultukkgufoa03.04.0-51.3 pg/mL RESULTS CALLED TO JOSE GRAHAM RN at 0012 NOTE: HIGH-SENSITIVITY TROPONIN ASSAY IS NOT INTENDED TO BE USED IN ISOLATION BUT SHOULD BE INTERPRETED IN CONJUNCTION 99TH PERCENTILE = 51.4 PG/ML WITH OTHER DIAGNOSTIC AND CLINICAL INFORMATION. HAS BEEN CONFIRMED THE DECISION THRESHOLD FOR [place] UNIVERSAL DEFINITION OF MYOCARDIAL INFARCTION. THE UPPER REFERENCE LIMIT (URL) OF TROPONIN, DEFINED THE 99TH DIAGNOSIS. PERCENTILE OF cTnI DISTRIBUTION IN A REFERENCE POPULATION, CUT-OFF POINTS HAVE BEEN ESTABLISHED BASED ON THE FOURTH Performing Lab:see note - [facility] LBBNP Reviewed date:04/24/2024 09:06:49 PM Interpretation: Performing Lab: Notes/Report: [facility] ,NT Pro B Type Natriuretic Qhaz8397.0<=1800.0 pg/mLRESULTS CALLED TO JOSE GRAHAM RN at 0642Performing Lab:see noteML - [facility] Reviewed date:04/24/2024 09:06:49 PM Interpretation: Performing Lab: Notes/Report: [facility] ,White Blood Count7.64.0-11.0 10 3/uLRed Blood Count3.264.20-5.40 10 6/uL Mbessjchit16.012.0-16.0 g/vXWndpbsxdpu78.636.0-48.0 %Mean Corpuscular Xppdqp50.9 81.0-99.0 fLMean Corpuscular Gjgvpmeuee07.726.7-34.0 pgMean Corpuscular HGB Conc 32.729.9-35.2 g/dLRed Cell Distribution Width11.811.0-15.0 %Platelet Xutwl198 150-450 10 3/uLMean Platelet Zvtkvg89.49.5-13.5 fLPerforming Lab:see note - [facility] LBMAGNESIUM Reviewed date:04/24/2024 09:06:49 PM Interpretation: Performing Lab: Notes/Report: [facility] ,Magnesium1.71.8-2.4 mg/dLPerforming Lab:see noteML - [facility] LB PROF 14(COMP METB) Reviewed date:04/24/2024 09:06:49 PM Interpretation: Performing Lab: Notes/Report: [facility] ,Nlqnyb770252-984 mmol/LPotassium3.83.5-5.1 mmol/LQpzchiay5796-052 mmol/LCarbon Fznnenx66.421.0-32.0 mmol/LAnion Gap11.2Kdcwjbi68077-162 mg/dLBlood Urea Inxtfmss11.07.0-18.0 mg/dLCreatinine2.190.55-1.02 mg/dLEstimated GFR ( Flzqjip83>=60 mL/min/1.73m 2Estimated GFR (Non- Ame22>=60 mL/min/1.73m 2 BUN Creatinine Ratio16.2Czyjizh3.38.5-10.1 mg/dLBilirubin Total0.70.2-1.0 mg/dL Aspartate Amino Vvylulseklp4710-61 U/LAlanine Ddsovkmqdxrnrqjm9420-23 U/L Alkaline Whvkadkfclx3352-603 U/LTotal Protein6.16.4-8.2 g/dLAlbumin Level2.23.4- 5.0 g/dLGlobulin3.9Albumin Globulin Ratio0.6Performing Lab:see noteML - [facility] LBUA (CLEAN or CATCH) SENIOR INTEGRATION ARCHITECT or MICRO IF IND. Reviewed date:04/24/2024 09:06:49 PM Interpretation: Performing Lab: Notes/Report: [facility] ,Color UrineLT. YELLOWYELLOWClarity UrineCLEARCLEARSpecific Wann Urine1.020 1.005-1.025pH Urine5.55.0-9.0Protein Tysry633ADH/TRACE mg/dLGlucose Urine UA NEGATIVENEGATIVE mg/dLBilirubin UrineNEGATIVENEGATIVEKetones UrineNEGATIVE NEGATIVE mg/dLBlood UrineNEGATIVENEGATIVENitrite UrineNEGATIVENEGATIVE Urobilinogen Urine0.20.2-1.0 EU/dLLeukocyte Esterase UrineNEGATIVENEGATIVEUrine Microscopic IndicatedYESPerforming Lab:see noteML - [facility] LB URINE MICROSCOPIC ONLY Reviewed date:04/24/2024 09:06:49 PM Interpretation: Performing Lab: Notes/Report: [facility] ,WBC UrineNONE SEENNONE SEEN #/HPFRBC UrineNONE SEEN0-2 #/HPFBacteria UrineNONE SEENNONE SEEN #/HPFMucus UrineNONE SEENNONE SEENSquamous Epithelial Cell Urine FEWNONE/RARE #/LPFYeast UrineSEENNONE SEENUrine Culture IndicatedNOPerforming Lab:see noteML - [facility] LBManual Differential Reviewed date:04/24/2024 09:06:49 PM Interpretation: Performing Lab: Notes/Report: [facility] ,Segmented Neutrophils % Edowdo21.043.0-75.0Lymphocytes Percent Manual4.020.5- 60.0 %Monocytes Percent Manual1.01.7-12.0 %Eosinophils Percent Manual0.00.9-7.0 %Basophils Percent Manual0.00.2-2.0 %Segmented Neut Absolute Manual7.221.4-6.5 10 3/uLLymphocytes Absolute Manual0.301.20-3.80 10 3/uLMonocytes Absolute Manual 0.070.30-0.80 10 3/uLEosinophils Absolute Manual0.000.00-0.70 10 3/uLBasophils Abs Manual0.000.00-0.10 10 3/uLToxic Granulation1+Performing Lab:see noteML - [facility] LBTroponin I High Sensitivity Reviewed date:04/24/2024 09:06:49 PM Interpretation: Performing Lab: Notes/Report: [facility] ,Troponin I High Myjvyxngaqd51.94.0-51.3 pg/mL 99TH PERCENTILE = 51.4 PG/ML UNIVERSAL DEFINITION OF MYOCARDIAL INFARCTION. THE UPPER WITH OTHER DIAGNOSTIC AND CLINICAL INFORMATION. CUT-OFF POINTS HAVE BEEN ESTABLISHED BASED ON THE FOURTH RESULTS CALLED TO JOSE GRAHAM RN at 0642 DIAGNOSIS. HAS BEEN CONFIRMED THE DECISION THRESHOLD FOR [place] PERCENTILE OF cTnI DISTRIBUTION IN A REFERENCE POPULATION, USED IN ISOLATION BUT SHOULD BE INTERPRETED IN CONJUNCTION NOTE: HIGH-SENSITIVITY TROPONIN ASSAY IS NOT INTENDED TO BE REFERENCE LIMIT (URL) OF TROPONIN, DEFINED THE 99TH Performing Lab:see noteML - [facility] LBECG 12 lead Reviewed date:04/24/2024 09:06:49 PM Interpretation: Performing Lab: Notes/Report: Source Facility: [facility]-[address] [place] [address] [place] [address] Electrocardiograph Report Signed Patient: RIVKA TURNER MR#: [id number] : 1945 Acct:[id number] Age/Sex: 78 / F ADM Date: 04/22/24 Loc: [place] 203- Attending Dr: Sid Woodall M.D. Ordering Physician: Sid Woodall M.D. 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 Measurements Intervals [place] Rate: 58 P: 62 VA: 162 QRS: 57 QRSD: 95 T: 34 QT: 443 QTc: 437 Interpretive Statements SINUS BRADYCARDIA NONSPECIFIC T-WAVE ABNORMALITY Compared to ECG 04/22/2024 13:50:41 T-wave abnormality now present ST (T wave) deviation no longer present Possible ischemia no longer present Electronically Signed On 04-24-2024 6:27:40 EST by CAROLINA LUCIO M.D. Dictated By: CAROLINA LUCIO Signed By: 04/24/24 0627 DD/ 1137 TD/TT: Insurance Sales Producer:Troponin I High Sensitivity Reviewed date:04/23/2024 09:30:04 PM Interpretation: Performing Lab: Notes/Report: [facility] ,Troponin I High Gnfmpqrgjxt285.24.0-51.3 pg/mL UNIVERSAL DEFINITION OF MYOCARDIAL INFARCTION. THE UPPER NOTE: HIGH-SENSITIVITY TROPONIN ASSAY IS NOT INTENDED TO BE DIAGNOSIS. RESULTS CALLED TO JOSE GRAHAM RN @BY Tyra Martin PERCENTILE OF cTnI DISTRIBUTION IN A REFERENCE POPULATION, HAS BEEN CONFIRMED THE DECISION THRESHOLD FOR [place] 99TH PERCENTILE = 51.4 PG/ML CUT-OFF POINTS HAVE BEEN ESTABLISHED BASED ON THE FOURTH REFERENCE LIMIT (URL) OF TROPONIN, DEFINED THE 99TH USED IN ISOLATION BUT SHOULD BE INTERPRETED IN CONJUNCTION WITH OTHER DIAGNOSTIC AND CLINICAL INFORMATION. Quinn at 0554 Performing Lab:see note - [facility] LBPROF 14(COMP METB) Reviewed date:04/23/2024 09:30:04 PM Interpretation: Performing Lab: Notes/Report: [facility] ,Vztrie642060-428 mmol/LPotassium3.63.5-5.1 mmol/QTprpqjvh95183-306 mmol/LCarbon Affobjz65.121.0-32.0 mmol/LAnion Gap8.4Uceukyf25239-084 mg/dLBlood Urea Tdrthnnl37.07.0-18.0 mg/dLCreatinine1.850.55-1.02 mg/dLEstimated GFR ( Mzfqymk68>=60 mL/min/1.73m 2Estimated GFR (Non- Ame27>=60 mL/min/1.73m 2 BUN Creatinine Ratio16.9Ghqhtsj0.28.5-10.1 mg/dLBilirubin Total0.70.2-1.0 mg/dL Aspartate Amino Hdayjxizzpe358-09 U/LAlanine Bhszbqkxzajsevvc8343-06 U/LAlkaline Ujumbjnslnc6852-672 U/LTotal Protein6.16.4-8.2 g/dLAlbumin Level2.43.4-5.0 g/dL Globulin3.7Albumin Globulin Ratio0.6Performing Lab:see noteML - [facility] LBMAGNESIUM Reviewed date:04/23/2024 09:30:04 PM Interpretation: Performing Lab: Notes/Report: [facility] ,Magnesium1.71.8-2.4 mg/dLPerforming Lab:see note - [facility] LB BNP Reviewed date:04/23/2024 09:30:04 PM Interpretation: Performing Lab: Notes/Report: [facility] ,NT Pro B Type Natriuretic Syst9280.0<=1800.0 pg/mL RESULTS CALLED TO JOSE GRAHAM RN @BY Tyra Ball at [id number] Performing Lab:see note - [facility] LBTroponin I High Sensitivity Reviewed date:04/23/2024 09:30:04 PM Interpretation: Performing Lab: Notes/Report: Comment from er blood - or skip it [facility] ,Troponin I High Rrgyyuneeqn964.74.0-51.3 pg/mL PERCENTILE OF cTnI DISTRIBUTION IN A REFERENCE POPULATION, USED IN ISOLATION BUT SHOULD BE INTERPRETED IN CONJUNCTION UNIVERSAL DEFINITION OF MYOCARDIAL INFARCTION. THE UPPER DIAGNOSIS. REFERENCE LIMIT (URL) OF TROPONIN, DEFINED THE 99TH CUT-OFF POINTS HAVE BEEN ESTABLISHED BASED ON THE FOURTH 99TH PERCENTILE = 51.4 PG/ML HAS BEEN CONFIRMED THE DECISION THRESHOLD FOR [place] WITH OTHER DIAGNOSTIC AND CLINICAL INFORMATION. RESULTS CALLED TO JOSE GRAHAM RN NOTE: HIGH-SENSITIVITY TROPONIN ASSAY IS NOT INTENDED TO BE Performing Lab:see noteML - [facility] Reason For Referral No Information Problems Problem Type SNOMED Code ICD Code Onset Dates Problem Status W/U Status Risk Notes Problem Essential hypertension (76992626 ) Essential (primary) hypertension (I10) ActiveconfirmedProblemType II diabetes mellitus without complication (157932107) Type 2 diabetes mellitus without complications (E11.9)ActiveconfirmedProblem Anemia in chronic kidney disease (037290361)Anemia in chronic kidney disease (D63.1)ActiveconfirmedProblemDiabetic renal disease (299619522)Type 2 diabetes mellitus with diabetic chronic kidney disease (E11.22)ActiveconfirmedProblem Generalized anxiety disorder (64939545)Generalized anxiety disorder (F41.1) ActiveconfirmedProblemChronic kidney disease stage 4 (578424873)Chronic kidney disease, stage 4 (severe) (N18.4)ActiveconfirmedProblemGastroesophageal reflux disease (718659707)GERD (gastroesophageal reflux disease) (K21.9)Activeconfirmed ProblemEssential hypertension (25473073)Benign essential HTN (I10)Active confirmedProblemAcute kidney injury (42157525)Acute kidney injury (N17.9)Active confirmedProblemHeart failure (90464072)Pleural effusion due to CHF (congestive heart failure) (I50.9)ActiveconfirmedProblemAcute urinary tract infection (765815363)Acute UTI (N39.0)ActiveconfirmedProblemChronic kidney disease stage 4 (974370977)Chronic kidney disease (CKD), stage 4 (severe) (N18.4)Active confirmedProblemHyperglycemia due to type 1 diabetes mellitus (761338632660568) Poor control type I diabetes mellitus (E10.65)ActiveconfirmedProblemChronic kidney disease stage 3B (disorder) (848814515)Chronic kidney disease, stage 3b (N18.32)Activeconfirmed Encounters Encounter Location Date Provider Diagnosis [facility] [address] [place] [address] 04/14/2024 Oniel Woodall Acute kidney injury N17.9 and Acute UTI N39.0 Assessments Encounter Date Diagnosis (ICD Code) Assessment Notes Treatment Notes Treatment Clinical Notes Section Notes 04/14/2024 Acute kidney injury (ICD-10 - N1 7.9) 15 min planning and discussion reguarding in-pt status - ucjqinbs12/24/2025ute UTI (ICD-10 - N39.0) Plan Of Treatment Next Appt Details Provider Name:Rodri Bravo, 12/25/2024 03:20:00 PM, [address] [place], [address], Insurance Providers Payer Name Payer Address Payer Phone Subscriber Number Group Number Insured Name Patient Relationship to Insured Coverage Start Date Coverage End Date [employer] PPO PLUS LOCAL PLAN [address] [place] [address] [id number] [facility] Self - patient is the insured MEDICAID [place] [address]ND [address] OFFICE OF [place], [place] [id number] [phone], [place] - patient is the [id number] 2018
--- OUTSIDE RECORDS SUMMARY | 2024-12-12 18:27 | XMS_ITS | Clinical Summary ---
Author Organization [facility] Address [address] [place] [address] Care Team Providers Care Bed Operator Name Role Phone Amador Lopez MD Primary Care Provider [phone] Allergies Active AllergyReactionsCriticalityNoted DateCommentsClindamycin HclAnaphylaxis 05/26/2016Cyclobenzaprine GqcCkvd66/23/7100FfgtsstibAvlm67/08/2013Iodine And Iodide Containing HiwnmmlpSyzv81/23/6279LnsrqwmycipTgja77/23/2013 NaiceoabtehcinhyFnlrjcm07/23/2013 Medications MedicationSigDispense QuantityRefillsLast FilledStart DateEnd DateStat medical supply, miscellaneous (COMMODE PAIL MISC) USE QOFBZGXD863/28/2018Active VENTOLIN HFA 90 mcg/actuation inhaler 05/24/2017Active amLODIPine (NORVASC) 10 mg tablet Take 1 tablet by mouth once daily.09/12/2017Active atorvastatin (LIPITOR) 40 mg tablet Take 1 tablet by mouth daily at bedtime.07/10/2017Active ONETOUCH ULTRA BLUE TEST STRIP test strip twice daily. TEST TWICE [id number] Circuit of The AmericasTOUCH ULTRA2 monitoring kit twice daily. TEST TWICE [id number] STOOL SOFTENER 100 mg capsule Take 100 mg by mouth once daily.Active fluticasone (FLONASE) 50 mcg/actuation nasal spray 09/17/2017Active furosemide (LASIX) 40 mg tablet Take 1 tablet by mouth once daily.09/14/2017Active glipiZIDE (GLUCOTROL) 10 mg tablet Take 2 tablets by mouth once daily.09/10/2017Active hydrALAZINE (APRESOLINE) 50 mg tablet Take 1 tablet by mouth twice daily.09/10/2017Active ONETOUCH DELICA LANCETS 30 gauge misc twice daily. TEST TWICE [id number] losartan-hydrochlorothiazide (HYZAAR) 100-25 mg per tablet Take 1 tablet by mouth once daily.07/18/2017Active metFORMIN ER (GLUCOPHAGE XR) 500 mg 24 hr tablet Take 1 tablet by mouth twice daily.07/10/2017Active metoprolol tartrate, short acting, (LOPRESSOR) 50 mg tablet Take 1 tablet by mouth once daily.09/17/2017Active sucralfate (CARAFATE) 1 gram tablet Take 1 tablet by mouth four times daily.09/18/2017Active PARoxetine (PAXIL) 40 mg tablet Take 1 tablet by mouth once daily.08/15/2017Active temazepam (RESTORIL) 15 mg cap Take 1 capsule by mouth daily at bedtime.Active pioglitazone (ACTOS) 30 mg tablet Take 30 mg by mouth once daily.Active Active Problems No known active problems Social History Tobacco UseTypesPacks/DayYears UsedDateSmoking Tobacco: NeverSmokeless Tobacco: NeverAlcohol UseStandard Drinks/WeekCommentsNo0 (1 standard drink = 0.6 oz pure alcohol)Area Deprivation IndexAnswerDate RecordedNational Score (1-100), lower number is lower riskNot on file01/27/2020State Score (1-10), lower number is lower riskNot on file01/27/2020Data from: https://www.neighborhoodatlas.medicine.[facility].edu/. Last address used for calculationNot on file01/27/2020CommentsNoSex and Gender Information ValueDate RecordedSex Assigned at BirthNot on fileLegal VgtMnihmx86/24/2018 2:34 PM EDTGender IdentityNot on fileSexual OrientationNot on file Last Filed Vital Signs Vital SignReadingTime TakenCommentsBlood Kfnrgrno156/4608 11:28 AM EDT Nqmzc2654 11:28 AM EDTTemperature--Respiratory Fkhr7662 11:28 AM EDTOxygen Lnvwrpcbwh70%09/19/2017 11:28 AM EDTInhaled Oxygen Concentration-- Wnodtf10.4 kg (206 lb)09/19/2017 11:28 AM OAIIqbwjq594.6 cm (5' 4 )09/19/2017 11:28 AM EDTBody Mass Index35.3608 11:28 AM EDT Plan of Treatment Health MaintenanceDue DateLast DoneCommentsAnxiety Sjugqtuwy17/22/1966Depression Gnqgtbkwe09/22/1966Hepatitis C Ywuhmcpfb31/22/1966DTaP,Tdap,Td Vaccine (1 - Tdap)07/10/1966Diabetes Ghimlkiye33/22/1993Pneumococcal Vaccine: 50+ (1 of 1 - PCV)07/10/1997Shingrix Vaccine (1 of 2)07/10/1997Bone Density Screening 07/10/2012RSV Vaccine (1 - 1-dose 75+ series)07/10/2022dvance Directive Cwbyradmam49/01/2025ovid-19 Vaccine (1 - 2024- season)2024Influenza Vaccine (#1)/07/2016, 11/18/2015, 11/04/2014 Insurance * Guarantor: Elif ShahAccount TypeRelation to PatientDate of BirthPhone Billing AddressPersonal/EcvkvlBdtp06/22/1946 [address] [address] Care Teams Team MemberRelationshipSpecialtyStart DateEnd Date Amador Lopez MD [address] [place] [place] [address] [facility]09/19/17
--- OUTSIDE RECORDS SUMMARY | 2024-12-12 18:27 | XMS_ITS | Clinical Summary ---
Author Organization [employer] [facility] Address [id number] [address] [place] [address] Care Team Providers Care Restaurant Front Manager Name Role Phone Amador Lopez MD Primary Care Provider [phone] Allergies Active AllergyReactionsCriticalityNoted DateCommentsClindamycinAnaphylaxis,Other (See Comments)High05/26/2016CodeineHives,Other (See Comments)12/27/2021 CyclobenzaprineHives,Itching,Other (See Comments),GootVwhynp84/23/2013 QawilmqfrkiMqnquros54/02/8383Syg7706/02/2022Ethinyl EstradiolOther (See Comments) 09/24/2024ExenatideGI Disturbance,QmtmNsig52/08/2013 Other Reaction(s): itching Iodinated Contrast MediaHives,Other (See Comments)02/06/2014 Other Reaction(s): itching/rash Xulddkzlqfhs67/14/2023LevonorgestrelOther (See Comments)09/24/2024LiraglutideGI Layrtybqvdz13/28/0254NmysjIlyyHzp89/23/2013PenicillinsFacial Swelling,Hives, Itching,Other (See Comments),ModpHhks19/23/2013ProchlorperazineOther (See Comments)12/11/2012SucralfateOther (See Comments)12/22/20197938Pwjofmyigt14/14/2023 Other Reaction(s): sickness TrazodoneGI Kdqbogevecp38/30/2020 Medications MedicationSigDispense QuantityRefillsLast FilledStart DateEnd DateStatus PARoxetine (PAXIL) 40 mg tablet Take 1 tablet (40 mg total) by mouth in the morning.5Active aspirin 81 mg Take 1 tablet (81 mg total) by mouth in the morning.Active atorvastatin (LIPITOR) 80 mg tablet Take 1 tablet (80 mg total) by mouth in the morning.Active buPROPion XL (WELLBUTRIN XL) 150 mg 24 hr tablet Take 1 tablet (150 mg total) by mouth in the morning.Active carvediloL (COREG) 25 mg tablet Take 1 tablet (25 mg total) by mouth in the morning and 1 tablet (25 mg total) in the evening. Takewith meals.Active famotidine (PEPCID) 40 mg tablet Take 1 tablet (40 mg total) by mouth in the morning.Active fluticasone propionate (FLONASE) 50 mcg/actuation nasal spray Administer 2 sprays into each nostril as needed for rhinitis (both nostrils q24 prn).Active furosemide (LASIX) 40 mg tablet Take 1 tablet (40 mg total) by mouth daily.Active isosorbide mononitrate (IMDUR) 30 mg 24 hr tablet Take 1 tablet (30 mg total) by mouth daily.Active SITagliptin phosphate (JANUVIA) 25 mg tablet Take 1 tablet (25 mg total) by mouth in the morning.Active empagliflozin (JARDIANCE) 25 mg tablet tablet Take 1 tablet (25 mg total) by mouth in the morning.Active polyethylene glycol (GLYCOLAX) 17 gram packet Take 17 g by mouth as needed (daily prn).Active montelukast (SINGULAIR) 10 mg tablet Take 1 tablet (10 mg total) by mouth nightly.Active pantoprazole (PROTONIX) 40 mg EC tablet Take 1 tablet (40 mg total) by mouth in the morning.Active hydrALAZINE (APRESOLINE) 100 mg tablet Take 0.5 tablets (50 mg total) by mouth at noon and 0.5 tablets (50 mg total) before bedtime.5Active amLODIPine (NORVASC) 5 mg tablet Take 2 tablets (10 mg total) by mouth in the morning.5Active acetaminophen (TYLENOL EXTRA STRENGTH) 500 mg tablet Take 2 tablets (1,000 mg total) by mouth every 8 (eight) hours.5Active calcium citrate (CALCITRATE) 200 mg (950 mg) tablet Take 2 tablets (400 mg total) by mouth in the morning and 2 tablets (400 mg total) at noon and 2 tablets (400 mg total) in the evening. Take with meals. 5Active cholecalciferol, vitamin D3, 2,000 units tablet Take 1 tablet (2,000 Units total) by mouth in the morning.5Active heparin sodium,porcine (heparin, porcine,) 5,000 unit/mL injection Inject 1 mL (5,000 Units total) under the skin every 8 (eight) hours for 28 days./5Active sennosides-docusate sodium (SENOKOT-S) 8.6-50 mg Take 2 tablets by mouth nightly.12/01/2024tive naloxone (NARCAN) 4 mg/actuation spray,non-aerosol nasal spray Administer 1 spray (4 mg total) into alternating nostrils as needed for opioid reversal.12/01/2024tive Additional Information Patient not taking.Reported on 12/10/2024 baclofen (LIORESAL) 10 mg tablet Take 1 tablet (10 mg total) by mouth 3 (three) times a day.Active temazepam (RESTORIL) 7.5 mg capsule Take 1 capsule (7.5 mg total) by mouth nightly as needed for sleep.Active hydrALAZINE (APRESOLINE) 100 mg tablet Take 1 tablet (100 mg total) by mouth at noon and 1 tablet (100 mg total) before bedtime.12/01/2024Discontinued metoclopramide (REGLAN) 5 mg tablet Take 1 tablet (5 mg total) by mouth once daily at bedtime. Give 1 tablet by mouth at bedtime nor vswtvb0612/01/2024Discontinued(Stop Taking at Discharge) temazepam (RESTORIL) 7.5 mg capsule Take 1 capsule (7.5 mg total) by mouth nightly as needed for sleep.12/01/2024 Discontinued(Stop Taking at Discharge) ceFUROxime (CEFTIN) 250 mg tablet Take 1 tablet (250 mg total) by mouth every 12 (twelve) hours for 12 doses. /Expired oxyCODONE (ROXICODONE) 5 mg immediate release tablet Indications:Closed fracture of right hip, initial encounter ([facility])Take 1 tablet (5 mg total) by mouth every 6 (six) hours as needed for pain for up to 3 days. Max Daily Amount: 20 mg 12 tablet Expired Active Problems ProblemNoted DateDiagnosed DateHistory of right hip uahdvivwzkakqmqq71/22/2025 Age-related osteoporosis with current pathological fracture with routine healing 12/10/2024losed displaced fracture of right femoral neck11/26/2024Urinary tract infection with mxscmsfvy24/26/2025Pneumonia due to infectious ndceytab13/26/2025 Tktzjnsz79/26/2025History of odqswbg8605/14/2024hronic diastolic congestive heart rsmzilg5405/06/2024Other fracture of unspecified lumbar vertebra, subsequent encounter for fracture with routine zqayhid4505/06/2024Essential hypertension 05/06/2024Iron deficiency anemia, jjnkbnaitqq62/18/2025Type 2 diabetes mellitus with stage 3b chronic kidney disease, with long-term current use of insulin 05/06/2024Personal history of transient ischemic attack (TIA), and cerebral infarction without residual moqngazb62/18/2025ute combined systolic and diastolic heart xtlrhvz2605/06/2024Pure ybgptftyeuppkvtacjyr08/18/2025Recurrent major depressive disorder, in kpbsgfaag43/18/2025Gastroesophageal reflux disease 05/06/2024Old myocardial rvejlrdotg04/18/2025Generalized anxiety disorder 05/06/20246692Qvlfpvsvgtqj05/18/2025 Encounters DateTypeDepartmentCare VwhzNpchegtvgvi70/22/2025 2:00 PM EDT - 12/10/2024 11:59 PM EDTHospital Encounter [facility] [address] [place] [phone] S/P hip hemiarthroplasty Discharge Disposition: Home12/10/2024 2:00 PM EDTOffice Visit [facility] [address] [place] [address] [place] [phone] Kirby Andersen MD Age-related osteoporosis with current pathological fracture with routine healing (Primary Dx); History of right hip hemiarthroplasty; Closed fracture of neck of right femur, okuehlo1212/10/20244850Pkjaqv85/21/2025Orders Only [facility] Orth[facility]ics/Trauma and Adult Reconstruction [address] [place] [address] Maninder Byrd RN S/P hip hemiarthroplasty (Primary Dx)11/27/2024 12:20 PM EDTAnesthesia Event [facility] - Surgery [address] [address] Brent Collado MD Brock, Austin, SRNA 11/27/2024 11:40 AM EDT - 11/27/2024 2:51 PM EDTSurgery [facility] - Surgery [address] [address] Kirby Andersen MD HEMIARTHROPLASTY HIP [62466 (CPT??)]11/27/20248287Paxzlg97/08/2025 4:15 PM EDT - 12/01/2024 3:42 PM EDTHospital Encounter [facility] - GEN 7 Acute [address] [place] [address] Gian Green, Gonzalo Shoemaker MD Namo, Susan, MD Closed fracture of right hip, initial encounter ([facility]) (Primary Dx); Type 2 diabetes mellitus with stage 3b chronic kidney disease, with long-term current use of insulin ([facility]) Discharge Disposition: [facility]11/26/2024 12:38 PM EDT - 11/26/2024 3:27 PM EDTEmergency [facility] [address] [place] [address] Eulalio Danielle MD Closed fracture of right hip, initial encounter ([facility]) (Primary Dx) Discharge Disposition: Institution Not Defined Xhwgzveru02/08/2025Travel 10/10/2024Travelfrom Last 3 Months Social History Tobacco UseTypesPacks/DayYears UsedDateSmoking Tobacco: NeverSmokeless Tobacco: Never Tobacco Cessation:Counseling Given: Not Answered Alcohol UseStandard Drinks/WeekCommentsNot Currently0 (1 standard drink = 0.6 oz pure alcohol)[facility] UtilitiesAnswerDate RecordedIn the past 12 months has the electric, gas, oil, or water company threatened to shut off services in your home?No11/26/2024PHQ-2AnswerDate RecordedTotal Nqfaw309PRAPARE - TransportationAnswerDate RecordedIn the past 12 months, [...] a part of a household?No11/26/2024hildcareAnswerDate RecordedChildcareUnknown 07/31/2018EmploymentAnswerDate YqptxigwFockqwjejjUoooujn63/12/2019Hunger ScreeningAnswerDate RecordedWithin the past 12 months we worried whether our food would run out before we got money to buy more.Never True12/10/2024Within the past 12 months the food we bought just didn't last and we didn't have money to get more.Never True12/10/2024CommentsNoSex and Gender Information ValueDate RecordedSex Assigned at BirthNot on fileLegal QzfEspfxp12/06/2015 11:56 AM EDTGender IdentityNot on fileSexual OrientationNot on file Last Filed Vital Signs Vital SignReadingTime TakenCommentsBlood Ulkktjkg149/6412/01/2024 12:25 PM EDT Voqmf891712/01/2024 12:25 PM XBLOinjwthwuwz98.9 ??C (96.7 ??F)12/10/2024 2:26 PM EDTRespiratory Scbb9801 12:25 PM EDTOxygen Caxpvstsmg66%12/01/2024 12:25 PM EDTInhaled Oxygen Concentration--Bqsvlu63.7 kg (178 lb)12/10/2024 2:26 PM EDT Zspznq026.6 cm (5' 4 )12/10/2024 2:26 PM EDTBody Mass Index30.5512/10/2024 2:26 PM EDT Plan of Treatment DateTypeDepartmentCare Team (Latest Contact Info)Nikfkbdmxcd95/26/2025 1:00 PM ESTOffice Visit [facility] [address] [place] [phone] Kirby Andersen MD [address] [place], [place] [phone] Health MaintenanceDue DateLast DoneCommentsFall Risk Hmlhdouro89/22/2013 Influenza Frgvyob1010/20/2024DTaP,Tdap and Td Vaccines (1 - Tdap)05/17/2025 Postponed from 07/10/1966 (Patient Refused)Zoster (Shingles) Vaccine (1 of 2) 05/17/2025Postponed from 07/10/1997 (Patient Refused)Depression Screening Tobacco Dhhdtudqe97 Goals GoalPatient Goal TypeAssociated ProblemsRecent ProgressPatient-Stated?Author <enter goal here> Abbie Holland LSW Note: Evaluation of progress towards goal: plan to go to [facility] facility for rehab needs Medical Devices ImplantedTypeAreaManufacturerDevice IdentifierShelf Expiration DateModel / Serial / LotStem Fem 136mm 8mm 133d Hi Os Tpr Tprlk Pps Ti Hip Prft Full - Sn/A - [id number] Implanted:Qty: 1 on 11/27/2024 by Kirby Andersen MD at [facility] ImplantRight: HipZimmer [id number] / N/A / [id number] Actb Std Tpr Hip E-2 - Sn/A - [id number] Implanted:Qty: 1 on 11/27/2024 by Kirby Andersen MD at [facility] ImplantRight: HipZimmer [id number] / N/A / [id number] Unplr 44mm Biomr Ii E-2 Hip Cocrmo Mdlr - Sn/A - [id number] Implanted:Qty: 1 [facility] HipZimmer [id number] / N/A / [id number] Procedures Procedure NamePriorityDate/TimeAssociated DiagnosisCommentsXR HIP RT 2-3 VIEWS W OR WO BRUXWMGowprkw33/22/2025 2:27 PM EDT S/P hip hemiarthroplasty CLINICAL PATHOLOGY EPSPYNHvgcycj22/13/2025 2:21 PM EDT CLINICAL PATHOLOGY YYVRDFZlkwvhk53/13/2025 2:21 PM EDT BEDSIDE RWTKHMIQvehxkr34/13/2025 12:17 PM EDT BEDSIDE KGVFEHNZddurwz75/13/2025 8:14 AM EDT ZWGEKKVADIcjkolr20/13/2025 6:02 AM EDT COMPREHENSIVE METABOLIC FBYTTZerupkv37/13/2025 6:02 AM EDT CBC WITH AUTO IMHZFHZPYBBXMeanioo53/13/2025 6:02 AM EDT BEDSIDE VKODNYHWpspeov45/12/2025 8:57 PM EDT BEDSIDE HXMFFQFYvzpmaq25/12/2025 5:14 PM EDT BEDSIDE HKHKPUELarquof30/12/2025 1:08 PM EDT BEDSIDE CSLUUGTWfqwdik28/12/2025 8:35 AM EDT IMMUNOELECTROPHORESIS FOR THERAPY EVZPIQOIONGlcpgtn61/12/2025 5:34 AM EDT PROTEIN ELECTROPHORESIS, SQMCZYrfmtqu59/12/2025 5:34 AM EDT DJVMVJIPWCmbcqjp79/12/2025 5:34 AM EDT COMPREHENSIVE METABOLIC ZSTMJYabyabk55/12/2025 5:34 AM EDT CBC WITH AUTO XTQTZBJZBGWTMktlzxn60/12/2025 5:34 AM EDT BEDSIDE YOBMJGDPdwveej06/11/2025 9:41 PM EDT BEDSIDE MLMXHJBYshcphm23/11/2025 4:34 PM EDT BEDSIDE PFHTSPPSygvrmh37/11/2025 12:22 PM EDT BEDSIDE RWUZDTHZlpibwy76/11/2025 8:48 AM EDT VITAMIN I19Hqo-Wb86/11/2025 5:32 AM EDT FOLATEAdd-On11/29/2024 5:32 AM EDT FERRITINAdd-On11/29/2024 5:32 AM EDT IRON AND TIBCAdd-On11/29/2024 5:32 AM EDT AJPSXPGWZLcscufr53/11/2025 5:32 AM EDT COMPREHENSIVE METABOLIC EAUMZOttusyd21/11/2025 5:32 AM EDT CBC WITH AUTO PASPWXGIQSWZUtaftfo20/11/2025 5:32 AM EDT BEDSIDE TXHMIGPPjpbovq67/10/2025 9:09 PM EDT BEDSIDE ZXXSJYWWbxdizy46/10/2025 4:34 PM EDT BEDSIDE ZSSKHIEPniapal00/10/2025 1:50 PM EDT ECHO COMPLETE W AASJIRKQOehvyba61/10/2025 10:29 AM EDT URINALYSISAdd-On11/28/2024 8:18 AM EDT MICROSCOPIC BCSDBJohckgh62/10/2025 8:18 AM EDT SODIUM, URINE, YRZZPEWuzeyhw74/10/2025 8:18 AM EDT UREA RANDOM, RVAAETfqrnky15/10/2025 8:18 AM EDT URINE CREATININE,CIUJNXKbmzrre15/10/2025 8:18 AM EDT PROTEIN CREAT MDDGGPhhdjit71/10/2025 8:18 AM EDT MICROALBUMIN / CREATININE URINE NBNJVLvnbfzu47/10/2025 8:18 AM EDT BEDSIDE LECAMFPTypxiyf89/10/2025 8:09 AM EDT YUZAPNBRHLgxemrl29/10/2025 7:54 AM EDT COMPREHENSIVE METABOLIC LOSKTNmnpjnx33/10/2025 7:54 AM EDT CBC WITH AUTO AZJNNEYUVXWALlnrbyx55/10/2025 7:54 AM EDT US RETROPERITONEAL UVCQYMYKONFG90/10/2025 7:41 AM EDT BEDSIDE UORJCRTFxotfhz32/09/2025 9:35 PM EDT XR CHEST 1 CZEcjgiev39/09/2025 6:39 PM EDT BEDSIDE LLBHRIEFwwsbti12/09/2025 5:00 PM EDT XR HIP RT 2-3 VIEWS W OR WO CQMWJOSdxxgmb44/09/2025 4:30 PM EDT XR HIP RT 2-3 VIEWS W OR WO IGMKWADazvjjz94/09/2025 2:30 PM EDT [place] AN ELECTIVE ENDOTRACHEAL QHOCVLCaegdfd42/09/2025 12:36 PM EDT [place] PARTIAL HIP BJVJUSLTEPV11/09/2025 12:19 PM EDT RIGHT HIP FX BEDSIDE DTHALZXLvyffam55/09/2025 10:22 AM EDT BEDSIDE UPRSPKTAgtlypf67/09/2025 8:40 AM EDT ALBUMINAdd-On11/27/2024 5:42 AM EDT PHOSPHORUSAdd-On11/27/2024 5:42 AM EDT CK TOTALAdd-On11/27/2024 5:42 AM EDT B-TYPE NATRIURETIC PEPTIDEAdd-On11/27/2024 5:42 AM EDT URIC ACIDAdd-On11/27/2024 5:42 AM EDT TGUSDLUOWZNznwryn12/09/2025 5:42 AM EDT CBC (NO DIFF)Lwxdvds9011/27/2024 5:42 AM EDT VITAMIN D 25 CKNDKTIPrzzust26/09/2025 5:42 AM EDT BASIC METABOLIC DQUZTYrtfnxs48/09/2025 5:42 AM EDT PARATHYROID HORMOME, HIXCAYHHNT72/09/2025 5:42 AM EDT BEDSIDE KYFZARTLzgcrrp68/08/2025 9:20 PM EDT BEDSIDE PIHLTLBUlcgohg89/08/2025 5:[address] HIP RT WO SYBSQXXP51/08/2025 5:13 PM EDT UREA RANDOM, NELWKDVPF27/08/2025 4:45 PM EDT URINE CREATININE,UEESLPNYBJ19/08/2025 4:45 PM EDT SODIUM, URINE, BZJPDYMJZV09/08/2025 4:45 PM EDT JXTKJVMAYHHXRG11/08/2025 4:45 PM EDT PULSE OXIMETRY, IBSGEjsgnae17/08/2025 4:40 PM EDTECG 12-ZRYZUMOK88/08/2025 4:39 PM EDT TYPE AND WVRKNUWWZZ33/08/2025 4:34 PM EDT B-TYPE NATRIURETIC PEPTIDEAdd-On11/26/2024 4:34 PM EDT CK TOTALAdd-On11/26/2024 4:34 PM EDT VITAMIN K32Ybu-Kg32/08/2025 4:34 PM EDT RETICULOCYTESAdd-On11/26/2024 4:34 PM EDT IRON AND TIBCAdd-On11/26/2024 4:34 PM EDT FOLATEAdd-On11/26/2024 4:34 PM EDT FERRITINAdd-On11/26/2024 4:34 PM EDT VITAMIN D 25 CJYBQQXGNHA02/08/2025 4:34 PM EDT FCKPQHUHWYJDGG69/08/2025 4:34 PM EDT BASIC METABOLIC IQZUPJGFV32/08/2025 4:34 PM EDT CBC WITH AUTO YHTAFCEFQTPACLZG86/08/2025 4:34 PM EDT ECG 12-ZYXDBYYX75/08/2025 3:05 PM EDT REPEATED RNUTXWezcvvb21/08/2025 1:35 PM EDT TYPE AND FFYUDWTEZS51/08/2025 1:35 PM EDT VITAMIN D 25 XOUZUMZHSRL80/08/2025 1:35 PM EDT YCVXHOQHWJDTGY57/08/2025 1:35 PM EDT BASIC METABOLIC PTAAFESJF30/08/2025 1:35 PM EDT CBC WITH AUTO BWAPZINDDSSULQTA75/08/2025 1:35 PM EDT EXTRA TUBES SST OLMRxoorrg38/08/2025 1:34 PM EDT EXTRA TUBES BLUE PKKRfoshhw65/08/2025 1:34 PM EDT EXTRA CYDKRTxxwskl92/08/2025 1:34 PM EDT XR HIP RT 2-3 VIEWS W OR WO WREAZSLBIV46/08/2025 1:06 PM EDT HEMOGLOBIN Q2IInlqzlm66/22/2025 2:39 PM EDT Type 2 diabetes mellitus with hyperglycemia ([facility]) from Last 3 Months Results * X-ray hip right 2-3 views with or without pelvis (12/10/2024 2:27 PM EDT) Only the most recent of4 resultswithin the time period is included. Anatomical RegionLateralityModalityLower Extremities, MSK, HipRightComputed RadiographySpecimen (Source)Anatomical [...] StatusKirby Andersen MDIMChitra DIAGNOSTIC IMAGING ORDERABLESFinal Result * Clinical Pathology Review (12/01/2024 2:21 PM EDT) Only the most recent of2 resultswithin the time period is included. ComponentValueRef RangeTest MethodAnalysis TimePerformed AtPathologist Signature Case ReportClinical Pathology Report ? Case: [id number] ? Authorizing Provider: ??Rodri Bravo MD ?Collected: ? 12/01/2024 1421 ? [facility] ??Received: ?12/01/2024 1421 ? - GEN 7 Acute ? Pathologist: ? Randy Campbell MD ? Specimens: ?? 1) - Blood, Venous ? 2) - Blood, Venous ? 12/01/2024 6:59 PM [facility]Final Diagnosis Hypoalbuminemia with mild increase in acute phase reactants. No monoclonal protein identified. 12/01/2024 6:59 PM [facility] at 1859 EDTSpecimen (Source)Anatomical Location / LateralityCollection Method / VolumeCollection TimeReceived Time Venous blood / Tlhfjdr7112/01/2024 2:21 PM EDT1 2:21 PM EDTVenous blood / Xqwpkpt9812/01/2024 2:21 PM EDT1 2:21 PM EDT Narrative Authorizing ProviderResult TypeResult StatusZamonica Bravo MDPATHOLOGY/CYTOLOGY ORDERABLESFinal ResultPerforming OrganizationAddressCity/State/ZIP CodePhone Number [facility] [address] [place] [address], [place] [phone] * (ABNORMAL) Bedside Glucose *Place/Obtain serum glucose if >500 per glucometer. (12/01/2024 12:17PM EDT) Only the most recent of20 resultswithin the time period is included. ComponentValueRef RangeTest MethodAnalysis TimePerformed AtPathologist Signature Bedside Glucose (POC)280(H)65 - 99 mg/dL12/01/2024 12:19 PM [facility] LABORATORYSpecimen (Source)Anatomical Location / LateralityCollection Method / VolumeCollection TimeReceived Timearterial//13/2025 12:17 PM EDT 12/01/2024 12:19 PM EDT Narrative Authorizing ProviderResult TypeResult StatusRosanamundo Goodrich MDPOINT OF CARE TEST ORDERABLESFinal ResultPerforming OrganizationAddressCity/State/ZIP CodePhone Number [facility] [address] [place] [address], [place] * (ABNORMAL) CBC auto differential (12/01/2024 6:02 AM EDT) Only the most recent of6 resultswithin the time period is included. ComponentValueRef RangeTest MethodAnalysis TimePerformed AtPathologist Signature WBC5.94 - 11 x10E9/L1 7:01 AM [facility] LABORATORYRBC Count2.39(L)3.8 - 5.2 X10E12/L1 7:01 AM [facility] LABORATORYHemoglobin7.9(L)11.7 - 15.5 g/dL12/01/2024 7:01 AM [facility] OSPWMCZRMLFuzyuevzyf50.1(L)35 - 47 %12/01/2024 7:01 AM [facility] QAYWATGMGASIC6085 - 100 fL12/01/2024 7:01 AM [facility] MVQIGONLSFPOW97.927 - 34 pg12/01/2024 7:01 AM [facility] MPBVSEJMKCXWPV14.032 - 36 g/dL12/01/2024 7:01 AM [facility] YCQADACNJRXCL71.411.5 - 15 %12/01/2024 7:01 AM [facility] LABORATORYPlatelet Pphnr898(L)150 - 450 X10E9/L1 7:01 AM [facility] LABORATORYMPV9.27 - 12 fL12/01/2024 7:01 AM [facility] LABORATORYNeutrophils %67.7%12/01/2024 7:01 AM [facility] LABORATORYLymphocytes %12.6%12/01/2024 7:01 AM [facility] LABORATORYMonocytes %12.2%12/01/2024 7:01 AM [facility] LABORATORYEosinophils %6.9%12/01/2024 7:01 AM [facility] LABORATORYBasophils %0.6%12/01/2024 7:01 AM [facility] LABORATORYNeutrophils Absolute (A)4.01.5 - 6.6 10*3/uL12/01/2024 7:01 AM [facility] LABORATORYLymphocytes Absolute0.7(L)1.0 - 3.5 10*3/uL12/01/2024 7:01 AM [facility] LABORATORYMonocytes Absolute0.70.0 - 0.9 10*3/uL12/01/2024 7:01 AM [facility] LABORATORYEosinophils Absolute0.40.0 - 0.4 10*3/uL12/01/2024 7:01 AM [facility] LABORATORYBasophils Absolute0.00.0 - 0.2 10*3/uL12/01/2024 7:01 AM [facility] LABORATORYDifferential TypeAUTOMATED HIHINTJJHBAD84/13/2025 7:01 AM [facility] LABORATORYSpecimen (Source)Anatomical Location / LateralityCollection Method / VolumeCollection TimeReceived TimeBloodVenous blood / UnknownVenipuncture / Pjxhoyq0312/01/2024 6:02 AM EDT1 6:44 AM EDT Narrative Authorizing ProviderResult TypeResult StatusYasmin QUICK BLOOD ORDERABLES Final ResultPerforming OrganizationAddressCity/State/ZIP CodePhone Number [facility] [address] [place] [address], * Magnesium (12/01/2024 6:02 AM EDT) Only the most recent of4 resultswithin the time period is included. ComponentValueRef RangeTest MethodAnalysis TimePerformed AtPathologist Signature MAGNESIUM2.11.8 - 2.6 mg/dL12/01/2024 7:22 AM [facility] LABORATORYSpecimen (Source)Anatomical Location / LateralityCollection Method / VolumeCollection TimeReceived TimeBloodVenous blood / UnknownVenipuncture / Katsbuu2012/01/2024 6:02 AM EDT1 6:44 AM EDT Narrative Authorizing ProviderResult TypeResult StatusYasmin QUICK BLOOD ORDERABLES Final ResultPerforming OrganizationAddressCity/State/ZIP CodePhone Number [facility] [address] [place] [address], [place] [phone] * (ABNORMAL) Comprehensive metabolic panel (12/01/2024 6:02 AM EDT) Only the most recent of4 resultswithin the time period is included. ComponentValueRef RangeTest MethodAnalysis TimePerformed AtPathologist Signature LPFPPY274821 - 146 mmol/L1 7:22 AM [facility] LABORATORYPOTASSIUM4.63.5 - 5.0 mmol/L1 7:22 AM [facility] WNDYBANMKEIYTSUIEZ86567 - 109 mmol/L1 7:22 AM [facility] LABORATORYCARBON PGXLAYL7560 - 32 mmol/L1 7:22 AM [facility] LABORATORYANION GAP85 - 15 mmol/L1 7:22 AM [facility] LABORATORYBLOOD UREA GIROTZBH70(H)5 - 27 mg/dL12/01/2024 7:22 AM [facility] LABORATORYCREATININE1.80(H)0.40 - 1.00 mg/dL 12/01/2024 7:22 AM [facility] LABORATORYComment:METHOD TRACEABLE TO IDMS MBKXZTRHBDFJWGH700(H)65 - 99 mg/dL12/01/2024 7:22 AM [facility] LABORATORYCALCIUM9.48.5 - 10.5 mg/dL12/01/2024 7:22 AM [facility] LABORATORYTOTAL PROTEIN5.4(L)6.0 - 8.0 g/dL12/01/2024 7:22 AM [facility] LABORATORYALBUMIN3.0(L)3.2 - 5.3 g/dL 12/01/2024 7:22 AM [facility] LABORATORYALKALINE SHCYACRVQSG88 39 - 130 U/L1 7:22 AM [facility] ISHMMIKDXZDGG50<=41 U/L1 7:22 AM [facility] QWVXSQNTGLSIB35<=31 U/L 12/01/2024 7:22 AM [facility] LABORATORYBILIRUBIN,TOTAL0.50.3 - 1.2 mg/dL12/01/2024 7:22 AM [facility] LABORATORYEGFR Non-Race Msbdpiidd69(L)>=60 ml/min/1.73sq.m1 7:22 AM [facility] LABORATORYComment: Reported eGFR is based on the CKD-EPI 2020 equation that does not use a race coefficient. Specimen (Source)Anatomical Location / LateralityCollection Method / Volume Collection TimeReceived TimeBloodVenous blood / UnknownVenipuncture / Unknown 12/01/2024 6:02 AM EDT1 6:44 AM EDT Narrative Authorizing ProviderResult TypeResult StatusYasmin QUICK BLOOD ORDERABLES Final ResultPerforming OrganizationAddressCity/State/ZIP CodePhone Number [facility] [address] [place] [address], * (ABNORMAL) Immunoelectrophoresis for Therapy Monitoring (11/30/2024 5:34 AM EDT)ComponentValueRef RangeTest MethodAnalysis TimePerformed AtPathologist [id number] - 378 mg/dL12/02/2024 9:35 AM [facility] [id number] - 1,741 mg/dL12/02/2024 9:35 AM [facility] ZTZYPHVZBUYBP77(L)45 - 281 mg/dL12/02/2024 9:35 AM [facility] LABORATORYFREE KAPPA LT CHAINS4.92(H)0.33 - 1.94 mg/dL12/02/2024 9:35 AM [facility] LABORATORYImmune Profile InterpretationSee Pathology Ngfdsa4612/02/2024 9:35 AM [facility] LABORATORYFREE LAMBDA LT CHAINS3.72(H)0.57 - 2.63 mg/dL12/02/2024 9:35 AM [facility]ORATORYFREE SHERRELL/LAMBD RATIO1.320.26 - 1.6512/02/2024 9:35 AM EDT [facility] LABORATORYSpecimen (Source)Anatomical Location / LateralityCollection Method / VolumeCollection TimeReceived TimeBloodVenous blood / UnknownVenipuncture / Eifdwlj8211/30/2024 5:34 AM EDT1 6:25 AM EDT Narrative Authorizing ProviderResult TypeResult StatusRodri QUICK BLOOD ORDERABLES Final ResultPerforming OrganizationAddressCity/State/ZIP CodePhone Number [facility] [address] [place] [address], * (ABNORMAL) Protein electrophoresis, serum (11/30/2024 5:34 AM EDT)Component ValueRef RangeTest MethodAnalysis TimePerformed AtPathologist SignatureTOTAL PROTEIN5.4(L)6.0 - 8.0 g/dL12/02/2024 9:34 AM [facility] LABORATORYALPHA 1 GLOBULIN0.5(H)0.1 - 0.4 g/dL12/02/2024 9:34 AM [facility] LABORATORYALPHA 2 GLOBULIN0.80.4 - 1.1 g/dL12/02/2024 9:34 AM [facility] LABORATORYBETA GLOBULIN0.70.5 - 1.2 g/dL 12/02/2024 9:34 AM [facility] LABORATORYGAMMA GLOBULIN0.60.5 - 1.6 g/dL12/02/2024 9:34 AM [facility] LABORATORYProtein Electrophoresis InterpSee Pathology Mginmj8712/02/2024 9:34 AM [facility] LABORATORYAlbumin2.8(L)3.4 - 5.3 g/dL12/02/2024 9:34 AM EDT [facility] LABORATORYSpecimen (Source)Anatomical Location / LateralityCollection Method / VolumeCollection TimeReceived TimeBloodVenous blood / UnknownVenipuncture / Udphfys0611/30/2024 5:34 AM EDT1 6:25 AM EDT Narrative Authorizing ProviderResult TypeResult StatusRodri Bravo MDLAB BLOOD ORDERABLES Final ResultPerforming OrganizationAddressCity/State/ZIP CodePhone Number [facility] [address] [place] [address], * (ABNORMAL) Iron and TIBC (11/29/2024 5:32 AM EDT) Only the most recent of2 resultswithin the time period is included. ComponentValueRef RangeTest MethodAnalysis TimePerformed AtPathologist Signature IRON12(L)50 - 170 ug/dL11/29/2024 7:38 PM [facility] XWGJVUEPBMM241449 - 336 mg/dL11/29/2024 7:38 PM [facility] LABORATORYIRON KIVLPXE347119 - 425 ug/dL11/29/2024 7:38 PM [facility] LABORATORYIRON SATURATION4(L)15 - 50 % KKEAOWGJFP20/11/2025 7:38 PM EDT [facility] LABORATORYSpecimen (Source)Anatomical Location / LateralityCollection Method / VolumeCollection TimeReceived TimeBloodVenous blood / UnknownVenipuncture / Pkyikds1711/29/2024 5:32 AM EDT1 5:42 AM EDT Narrative Authorizing ProviderResult TypeResult StatusSumundo Goodrich DCLAB BLOOD ORDERABLES Final ResultPerforming OrganizationAddressCity/State/ZIP CodePhone Number [facility] [address] [place] [address], * Folate (11/29/2024 5:32 AM EDT) Only the most recent of2 resultswithin the time period is included. ComponentValueRef RangeTest MethodAnalysis TimePerformed AtPathologist Signature FOLIC ACID17.9>5.8 ng/mL11/29/2024 8:50 PM [facility] LABORATORYSpecimen (Source)Anatomical Location / LateralityCollection Method / VolumeCollection TimeReceived TimeBloodVenous blood / UnknownVenipuncture / Estznej3011/29/2024 5:32 AM EDT1 5:42 AM EDT Narrative Authorizing ProviderResult TypeResult StatusYasmin Goodrich DCLAB BLOOD ORDERABLES Final ResultPerforming OrganizationAddressCity/State/ZIP CodePhone Number [facility] [address] [place] [address], * Ferritin (11/29/2024 5:32 AM EDT) Only the most recent of2 resultswithin the time period is included. ComponentValueRef RangeTest MethodAnalysis TimePerformed AtPathologist Signature WUQXSOQB1541 - 307 ng/mL11/29/2024 8:47 PM [facility] LABORATORYSpecimen (Source)Anatomical Location / LateralityCollection Method / VolumeCollection TimeReceived TimeBloodVenous blood / UnknownVenipuncture / Nfthsgd4811/29/2024 5:32 AM EDT1 5:42 AM EDT Narrative Authorizing ProviderResult TypeResult StatusYasmin QUICK BLOOD ORDERABLES Final ResultPerforming OrganizationAddressCity/State/ZIP CodePhone Number [facility] [address] [place] [address], * Vitamin B12 (11/29/2024 5:32 AM EDT) Only the most recent of2 resultswithin the time period is included. ComponentValueRef RangeTest MethodAnalysis TimePerformed AtPathologist Signature VITAMIN [id number] - 914 pg/mL11/29/2024 8:51 PM [facility]pecimen (Source)Anatomical Location / LateralityCollection Method / VolumeCollection TimeReceived TimeBloodVenous blood / UnknownVenipuncture / Djimgxs1911/29/2024 5:32 AM EDT1 5:42 AM EDT Narrative Authorizing ProviderResult TypeResult StatusYasmin QUICK BLOOD ORDERABLES Final ResultPerforming OrganizationAddressCity/State/ZIP CodePhone Number [facility] [address] [place] [address], * Echo complete W/ contrast (11/28/2024 10:29 AM EDT)ComponentValueRef RangeTest MethodAnalysis TimePerformed AtPathologist AmxqmcfptCM3569 - 44 %XCELERALVIDd 4.404.42 - 6.14 cmXCELERALVIDs2.802.61 - 3.96 cmXCELERAIVS1.100.6 - 1.1 cm XCELERAPW1.100.6 - 1.1 cmXCELERATDI7.01cm/sXCELERAMV TDI E' (medial)5.43cm/s XCELERALA Volume Index51.2mL/v8UBMHFKFE/A ratio1.31XCELERAE wave deceleration ohgl044.00msecXCELERAMV Peak E Zpo441.00cm/sXCELERAMV Peak A Vqn090.00cm/s XCELERALA size4.10cmXCELERAAortic root3.50cmXCELERALA lmwupf62.93dh7KDGIIPYEJ diastolic dimension (basal)32.9nsHJHOOKOMMNOW7.28cmXCELERAAV peak bar019.00 cm/sXCELERALVOT peak vel1.11m/sXCELERAAV VTI33.00cmXCELERALVOT peak VTI32.80cm XCELERAAV mean gradient4.00mmHgXCELERAAV peak gradient6.55mmHgXCELERAMV pressure 1/2 time69.00msXCELERAMV valve area p 1/2 method3.48va8PLWCUOBMV peak gradient4.24mmHgXCELERAInferior Vena Cava Diameter2.00cmXCELERALV ESV A2C 103.00mLXCELERALV ESV A4C94.40mLXCELERALV RWT 2D50.00XCELERAAV Velocity Ratio 0.99XCELERAIVC ayixsbtz52cuROMTEQICwaq Ventricle Wvrh157.874252258025232r XCELERAInterventricular Septum Diastolic Thickness by 3W39ytSIAUDWHYph. RA ifgkbuqs9jzHmBGXTKNALZ area16.9dk5QFDYXSAWPJZAW-5.09XCELERAZLVIDD-1.69XCELERA Energy loss index17.98XCELERAAnatomical RegionLateralityModalityChestN/A UltrasoundSpecimen (Source)Anatomical Location [...] segments are normal. Authorizing ProviderResult TypeResult StatusSusan [facility] ECHO ORDERABLESFinal Result * (ABNORMAL) Protein creat ratio (11/28/2024 8:18 AM EDT)ComponentValueRef Range Test MethodAnalysis TimePerformed AtPathologist SignatureURINE PROTEIN, RANDOM (MG/L)1,270(H)<120 mg/L1 10:18 AM [facility] LABORATORYURINE CREATININE,RDM83.62mg/dL11/28/2024 10:18 AM [facility] LABORATORYU/PRO/SECURITY CONTROL ROOM OFFICER RATIO CALC1.52(H)<=0. 10:18 AM EDT [facility] LABORATORYSpecimen (Source)Anatomical Location / LateralityCollection Method / VolumeCollection TimeReceived TimeUrine (Urine, Indwelling Catheter)11/28/2024 8:18 AM EDT1 9:13 AM EDT Narrative [facility] - 11/28/2024 10:18 AM EDT Nephrotic Syndrome is associated with ratios >3.5 Authorizing ProviderResult TypeResult StatusYasmin CURRIE ORDERABLESFinal ResultPerforming OrganizationAddressCity/State/ZIP CodePhone Number [facility] [address] [place] [address], [place] [phone] * Urine Creatinine,random (11/28/2024 8:18 AM EDT) Only the most recent of2 resultswithin the time period is included. ComponentValueRef RangeTest MethodAnalysis TimePerformed AtPathologist Signature URINE CREATININE,RDM85.13mg/dL11/28/2024 10:11 AM [facility] LABORATORYSpecimen (Source)Anatomical Location / LateralityCollection Method / VolumeCollection TimeReceived TimeUrine (Urine, Indwelling Catheter)11/28/2024 8:18 AM EDT1 9:05 AM EDT Narrative Authorizing ProviderResult TypeResult StatusMaxwell CURRIE ORDERABLES Final ResultPerforming OrganizationAddressCity/State/ZIP CodePhone Number [facility] [address] [place] [address], [place] [phone] * (ABNORMAL) Microscopic, urine (11/28/2024 8:18 AM EDT)ComponentValueRef Range Test MethodAnalysis TimePerformed AtPathologist SignatureMUCOUSPresent(A)None 11/28/2024 10:10 AM [facility] LABORATORYR.B.CELLS10 - 5 11/28/2024 10:10 AM [facility] LABORATORYW.B.CELLS25(H)0 - 5 11/28/2024 10:10 AM [facility] LABORATORYSpecimen (Source) Anatomical Location / LateralityCollection Method / VolumeCollection Time Received TimeUrine (Urine, Indwelling Catheter)11/28/2024 8:18 AM EDT 11/28/2024 9:05 AM EDT Narrative Authorizing ProviderResult TypeResult StatusMaxwell CURRIE ORDERABLES Final ResultPerforming OrganizationAddressty/State/ZIP CodePhone Number [facility] [address] [place] [address], * Urea random, urine (11/28/2024 8:18 AM EDT) Only the most recent of2 resultswithin the time period is included. ComponentValueRef RangeTest MethodAnalysis TimePerformed AtPathologist Signature URINE UREA NITROGEN,CRJXBA448mf/dL11/28/2024 10:18 AM [facility] LABORATORYSpecimen (Source)Anatomical Location / LateralityCollection Method / VolumeCollection TimeReceived TimeUrine (Urine, Indwelling Catheter) 11/28/2024 8:18 AM EDT1 9:13 AM EDT Narrative Authorizing ProviderResult TypeResult StatusMaxwell CURRIE ORDERABLES Final ResultPerforming OrganizationAddressty/State/ZIP CodePhone Number [facility] [address] [place] [address], * (ABNORMAL) Microalbumin - Albumin: Creatinine Urine Ratio (11/28/2024 8:18 AM EDT)ComponentValueRef RangeTest MethodAnalysis TimePerformed AtPathologist SignatureURINE CREATININE,RDM83.62mg/dL11/28/2024 10:18 AM [facility] LABORATORYMALB/CREAT RQSSO405.3(H)0.0 - 30.0 mg/g1 10:18 AM [facility] LABORATORYMICROALBUMIN, URINE22.6(H)0.0 - 1.9 mg/dL11/28/2024 10:18 AM [facility] LABORATORYSpecimen (Source)Anatomical Location / LateralityCollection Method / VolumeCollection TimeReceived TimeUrine (Urine, Indwelling Catheter)11/28/2024 8:18 AM EDT 11/28/2024 9:13 AM EDT Narrative Authorizing ProviderResult TypeResult StatusYasmin CURRIE ORDERABLESFinal ResultPerforming OrganizationAddressCity/State/ZIP CodePhone Number [facility] [address] [place] [address], * Sodium, urine, random (11/28/2024 8:18 AM EDT) Only the most recent of2 resultswithin the time period is included. ComponentValueRef RangeTest MethodAnalysis TimePerformed AtPathologist Signature URINE SODIUM,SXMTGX73uaxi/L1 10:18 AM [facility] LABORATORYSpecimen (Source)Anatomical Location / LateralityCollection Method / VolumeCollection TimeReceived TimeUrine (Urine, Indwelling Catheter)11/28/2024 8:18 AM EDT1 9:13 AM EDT Narrative Authorizing ProviderResult TypeResult StatusMaxwell CURRIE ORDERABLES Final ResultPerforming OrganizationAddressCity/State/ZIP CodePhone Number [facility] [address] [place] [address], * (ABNORMAL) Urinalysis (11/28/2024 8:18 AM EDT) Only the most recent of2 resultswithin the time period is included. ComponentValueRef RangeTest MethodAnalysis TimePerformed AtPathologist Signature KRYAJSwehknQbjvrc55/10/2025 6:06 PM [facility] QEBLJOORKGwqdfSukft14/10/2025 6:06 PM [facility] SPECIFIC GRAVITY1.0181.003 - 1.9389611/28/2024 6:06 PM [facility] RLJCLNEYDHHWBIJUDCoxllcdmBfzjzyhy13/10/2025 6:06 PM [facility] LABORATORYPH,URINE5.55.0 - 8.510 6:06 PM [facility] LABORATORYLEUKOCYTE CQBUTBCQOgwekdqeTfxxdxwu21/10/2025 6:06 PM [facility] WECCOQEAJXUGLIPTU53 mg/dL(A)Tajdgzca15/10/2025 6:06 PM EDT [facility] LABORATORYKETONES (URINE)BqnoiriyQyzuschc37/10/2025 6:06 PM [facility] LABORATORYUROBILINOGEN<1.1 eu/dL<1.1 eu/dL 11/28/2024 6:06 PM [facility] LABORATORYBILIRUBIN (URINE) JfhwjqlhRvovvjzd99/10/2025 6:06 PM [facility] BLOOD/HGBSmall(A)Vkytnkpr80/10/2025 6:06 PM [facility] LABORATORYHYALINE CASTS10 - 6:06 PM [facility] LABORATORYMUCOUSPresent(A)None11/28/2024 6:06 PM [facility] LABORATORYR.B.CELLS<10 - 6:06 PM [facility] LABORATORYSQUAMOUS EQPCMOVTLW98 - 6:06 PM [facility] LABORATORYW.B.CELLS29(H)0 - 6:06 PM [facility] LABORATORYGLUCOSE (URINE)500 mg/dL(A)Ncsvkqld70/10/2025 6:06 PM [facility] LABORATORYSpecimen (Source)Anatomical Location / Laterality Collection Method / VolumeCollection TimeReceived TimeUrine (Urine, Indwelling Catheter)11/28/2024 8:18 AM EDT1 9:13 AM EDT Narrative [facility] - 11/28/2024 6:06 PM EDT Urine received without preservative. Delays in transport may affect results. Interpret with caution. A clinical correlation is recommended. Authorizing ProviderResult TypeResult StatusSumundo CURRIE ORDERABLESFinal ResultPerforming OrganizationAddressCity/State/ZIP CodePhone Number [facility] [address] [place] [address], [place] [phone] * Ultrasound retroperitoneal complete (11/28/2024 7:41 AM [...] kidneys. Approved by Res Gen Webb MD on 11/28/2024 7:58 AM IJayden MD have personally reviewed the image(s) and agreewith and/or edited the report Finalized by Jayden Fernandez MD on 11/28/2024 10:14 AM Authorizing ProviderResult TypeResult StatusHibshaheen Rolle MDIMG US ORDERABLES Final Result * X-ray chest 1 view (11/27/2024 6:39 [...] on 11/27/2024 9:55 PM Authorizing ProviderResult TypeResult StatusMaxwell Pretty MDIMG DIAGNOSTIC IMAGING ORDERABLESFinal Result * [place] AN ELECTIVE ENDOTRACHEAL AIRWAY (11/27/2024 12:36 PM EDT) Kirby Wylie SRNA - 11/27/2024 12:36 PM EDT YONIS Garcia 11/27/2024 1:12 PM Airway Patient location during procedure: OR Urgency: Elective Date/Time: 11/27/2024 12:36 PM Airway not difficult IV In Situ: Peripheral General Information and Staff Service Provider: Brent Collado MD TAX MANAGER: Flaco Caal APRN-TAX MANAGER Student: YONIS Garcia Placed by: ??YONIS Garcia Patient Identified, IV Checked, Risks and Benefits Discussed, Surgical Consent, Monitors and Equipment Checked, Pre-op Evaluation and Timeout Performed Fire Risk Assessment Score: 0 Consent for Emergent Airway (if performed for an anesthetic, see related documentation for consents) Risks and benefits: risks, benefits and alternatives were discussed Indications and Patient Condition Sedation level: Deep Preoxygenated: yesPatient position: Supine Mask difficulty assessment: With Oral Airway Indications for airway management: Anesthesia Final Airway Details Final airway type: ETT Endotracheal airway: Cuffed and ETT - Single Lumen Techniques used for successful ETT Placement: Direct Laryngoscopy Cormack-Lehane Classification: Grade II Adjuncts used in placement: Anterior Pressure/BURP Endotracheal tube insertion site: Oral No Bite Block Placed Blade: Abdulkadir Blade size: #3 Placement verified by: chest auscultation, capnography and symmetrical chest wall movement ETT size: 7.0 mm Measured from: Lips Secured at (cm): 21 Number of attempts at approach: 1 Authorizing ProviderResult TypeResult StatusJeviviana Collado MDANESTHESIA ORDERABLESEdited Result - Final * (ABNORMAL) Parathyroid Hormone, intact (11/27/2024 5:42 AM EDT)ComponentValue Ref RangeTest MethodAnalysis TimePerformed AtPathologist SignaturePTH INTACT 116(H)12 - 88 pg/mL11/27/2024 7:02 AM [facility] Specimen (Source)Anatomical Location / LateralityCollection Method / Volume Collection TimeReceived TimeBloodVenous blood / UnknownVenipuncture / Unknown 11/27/2024 5:42 AM EDT1 6:13 AM EDT Narrative Authorizing ProviderResult TypeResult StatusGonzalo Rolle MDLAB BLOOD ORDERABLESFinal ResultPerforming OrganizationAddressCity/State/ZIP CodePhone Number [facility] [address] [place] [address], * (ABNORMAL) Vitamin D 25 hydroxy (11/27/2024 5:42 AM EDT) Only the most recent of3 resultswithin the time period is included. ComponentValueRef RangeTest MethodAnalysis TimePerformed AtPathologist Signature VITAMIN D 25 HYD TOT23.1(L)30.0 - 100.0 ng/mL11/27/2024 7:10 AM [facility] LABORATORYSpecimen (Source)Anatomical Location / Laterality Collection Method / VolumeCollection TimeReceived TimeBloodVenous blood / UnknownVenipuncture / Yfodjyy2111/27/2024 5:42 AM EDT1 6:13 AM EDT Narrative [facility] - 11/27/2024 7:10 AM EDT Vitamin D status 25 [place] Vitamin D Deficiency <20 ng/mL Insufficiency ? 20-29 ng/mL Sufficiency ? 30-100 ng/mL Toxicity >100 ng/mL NOTE: A pediatric reference range has not been established by the clinical laboratory director of this kit. The [place] [employer] recommends a Vitamin D level of = or >20ng/mL in infants and children. Authorizing ProviderResult TypeResult StatusHenry [facility] Hospital Gely Rolle DCLAB BLOOD ORDERABLESFinal ResultPerforming OrganizationAddressCity/State/ZIP CodePhone Number [facility] [address] [place] [address], * (ABNORMAL) CBC without diff (11/27/2024 5:42 AM EDT)ComponentValueRef Range Test MethodAnalysis TimePerformed AtPathologist SignatureWBC8.14 - 11 x10E9/L 11/27/2024 6:29 AM [facility] LABORATORYRBC Count3.30(L)3.8 - 5.2 X10E12/L1 6:29 AM [facility] Rzefimnhxd64.0(L)11.7 - 15.5 g/dL11/27/2024 6:29 AM [facility] CWOKJCGOBKLmmmxbypny97.1(L)35 - 47 %11/27/2024 6:29 AM [facility] CYRISDNZQSJIM0694 - 100 fL11/27/2024 6:29 AM [facility] YNWDQBWKPMRRE45.327 - 34 pg11/27/2024 6:29 AM [facility] HKUKXHRYGNWDWL29.232 - 36 g/dL11/27/2024 6:29 AM [facility] KMYNNYUFRSSXO72.611.5 - 15 %11/27/2024 6:29 AM [facility] LABORATORYPlatelet Owndr155(L)150 - 450 X10E9/L1 6:29 AM [facility] LABORATORYMPV9.07 - 12 fL11/27/2024 6:29 AM [facility] LABORATORYSpecimen (Source)Anatomical Location / LateralityCollection Method / VolumeCollection TimeReceived TimeBloodVenous blood / UnknownVenipuncture / Vubxgss8511/27/2024 5:42 AM EDT1 6:13 AM EDT Narrative Authorizing ProviderResult TypeResult StatusHibshaheen QUICK BLOOD ORDERABLESFinal ResultPerforming OrganizationAddressCity/State/ZIP CodePhone Number [facility] [address] [place] [id number], * Uric acid (11/27/2024 5:42 AM EDT)ComponentValueRef RangeTest MethodAnalysis TimePerformed AtPathologist SignatureURIC ACID6.62.6 - 7.2 mg/dL11/27/2024 6:05 PM [facility] LABORATORYSpecimen (Source)Anatomical Location / LateralityCollection Method / VolumeCollection TimeReceived Time BloodVenous blood / UnknownVenipuncture / Ogspbbi1511/27/2024 5:42 AM EDT 11/27/2024 6:13 AM EDT Narrative Authorizing ProviderResult TypeResult StatusDasaud Pretty MDLAB BLOOD ORDERABLES Final ResultPerforming OrganizationAddressCity/State/ZIP CodePhone Number [facility] [address] [place] [address], * Prealbumin (11/27/2024 5:42 AM EDT) Only the most recent of3 resultswithin the time period is included. ComponentValueRef RangeTest MethodAnalysis TimePerformed AtPathologist Signature PZJHDVLKEB3797 - 45 mg/dL11/27/2024 6:50 AM [facility] LABORATORYSpecimen (Source)Anatomical Location / LateralityCollection Method / VolumeCollection TimeReceived TimeBloodVenous blood / UnknownVenipuncture / Bdnbgef2211/27/2024 5:42 AM EDT1 6:13 AM EDT Narrative Authorizing ProviderResult TypeResult StatusHibah H Issidil MDLAB BLOOD ORDERABLESFinal ResultPerforming OrganizationAddressCity/State/ZIP CodePhone Number [facility] [address] [place] [address], * Phosphorus (11/27/2024 5:42 AM EDT)ComponentValueRef RangeTest MethodAnalysis TimePerformed AtPathologist SignaturePHOSPHORUS4.32.4 - 4.9 mg/dL11/27/2024 6:05 PM [facility] LABORATORYSpecimen (Source)Anatomical Location / LateralityCollection Method / VolumeCollection TimeReceived Time BloodVenous blood / UnknownVenipuncture / Oyovica1011/27/2024 5:42 AM EDT 11/27/2024 6:13 AM EDT Narrative Authorizing ProviderResult TypeResult StatusDaceciliol Sukhwinedr MDLAB BLOOD ORDERABLES Final ResultPerforming OrganizationAddressCity/State/ZIP CodePhone Number [facility] [place] [address], * (ABNORMAL) B-type natriuretic peptide (11/27/2024 5:42 AM EDT) Only the most recent of2 resultswithin the time period is included. ComponentValueRef RangeTest MethodAnalysis TimePerformed AtPathologist Signature HOT708(H)<=100 pg/mL11/27/2024 6:28 PM [facility] Specimen (Source)Anatomical Location / LateralityCollection Method / Volume Collection TimeReceived TimeBloodVenous blood / UnknownVenipuncture / Unknown 11/27/2024 5:42 AM EDT1 6:13 AM EDT Narrative Authorizing ProviderResult TypeResult StatusDanial Sukhwinder MDLAB BLOOD ORDERABLES Final ResultPerforming OrganizationAddressCity/State/ZIP CodePhone Number [facility] [address] [place] [address], [place] [phone] * (ABNORMAL) CK Total (11/27/2024 5:42 AM EDT) Only the most recent of2 resultswithin the time period is included. ComponentValueRef RangeTest MethodAnalysis TimePerformed AtPathologist Signature CPK18(L)24 - 170 U/L1 6:05 PM [facility] Specimen (Source)Anatomical Location / LateralityCollection Method / Volume Collection TimeReceived TimeBloodVenous blood / UnknownVenipuncture / Unknown 11/27/2024 5:42 AM EDT1 6:13 AM EDT Narrative Authorizing ProviderResult TypeResult StatusDanial Pretty MDLAB BLOOD ORDERABLES Final ResultPerforming OrganizationAddressCity/State/ZIP CodePhone Number [facility] [address] [place] [address], [place] [phone] * Albumin (11/27/2024 5:42 AM EDT)ComponentValueRef RangeTest MethodAnalysis TimePerformed AtPathologist SignatureALBUMIN3.43.2 - 5.3 g/dL11/27/2024 6:05 PM [facility] LABORATORYSpecimen (Source)Anatomical Location / LateralityCollection Method / VolumeCollection TimeReceived TimeBloodVenous blood / UnknownVenipuncture / Selciic4611/27/2024 5:42 AM EDT1 6:13 AM EDT Narrative Authorizing ProviderResult TypeResult StatusDanial Pretty MDLAB BLOOD ORDERABLES Final ResultPerforming OrganizationAddressCity/State/ZIP CodePhone Number [facility] [address] [place] [address], * (ABNORMAL) Basic Metabolic Panel (11/27/2024 5:42 AM EDT) Only the most recent of3 resultswithin the time period is included. ComponentValueRef RangeTest MethodAnalysis TimePerformed AtPathologist Signature GNWXIU767416 - 146 mmol/L1 6:50 AM [facility] LABORATORYPOTASSIUM4.53.5 - 5.0 mmol/L1 6:50 AM [facility] OTNRSNINHQEQYYYJNX56822 - 109 mmol/L1 6:50 AM [facility] LABORATORYCARBON VLGORAL6954 - 32 mmol/L1 6:50 AM [facility] LABORATORYANION GAP75 - 15 mmol/L1 6:50 AM [facility] LABORATORYBLOOD UREA ISIWBJFO57(H)5 - 27 mg/dL11/27/2024 6:50 AM [facility] LABORATORYCREATININE2.53(H)0.40 - 1.00 mg/dL 11/27/2024 6:50 AM [facility] LABORATORYComment:METHOD TRACEABLE TO IDMS YXYOXVBGDCGHPTQ271(H)65 - 99 mg/dL11/27/2024 6:50 AM [facility] LABORATORYCALCIUM9.18.5 - 10.5 mg/dL11/27/2024 6:50 AM EDT [facility]ORYEGFR Non-Race Evygftess55(L)>=60 ml/min/1.73sq.m1 6:50 AM [facility] LABORATORYComment: Reported eGFR is based on the CKD-EPI 2020 equation that does not use a race coefficient. Specimen (Source)Anatomical Location / LateralityCollection Method / Volume Collection TimeReceived TimeBloodVenous blood / UnknownVenipuncture / Unknown 11/27/2024 5:42 AM EDT1 6:13 AM EDT Narrative Authorizing ProviderResult TypeResult StatusHibah H Ismail MDLAB BLOOD ORDERABLESFinal ResultPerforming OrganizationAddressCity/State/ZIP CodePhone Number [facility] [address] [place] [address], * CT hip right without contrast (11/26/2024 [...] Carolina Green DOIMG CT ORDERABLESFinal Result * ECG 12 lead (11/26/2024 4:39 PM EDT) Only the most recent of2 resultswithin the time period is included. Specimen (Source)Anatomical Location / LateralityCollection Method / Volume Collection TimeReceived Time11/26/2024 4:39 PM EDT Narrative TRACEMASTERVUE - 11/28/2024 5:40 PM EDT Authorizing ProviderResult TypeResult Carolina Green DOECG ORDERABLES Final ResultPerforming OrganizationAddressCity/State/ZIP CodePhone Number TRACEMASTERVUE * Reticulocytes (11/26/2024 4:34 PM EDT)ComponentValueRef RangeTest Method Analysis TimePerformed AtPathologist SignatureReticulocyte Count1.50.4 - 2.2 % 11/26/2024 4:56 PM [facility] LABORATORYSpecimen (Source) Anatomical Location / LateralityCollection Method / VolumeCollection Time Received TimeBloodVenous blood / Ktibymn5111/26/2024 4:34 PM EDT1 4:49 PM EDT Narrative Authorizing ProviderResult TypeResult Cheryl QUICK BLOOD ORDERABLESFinal ResultPerforming OrganizationAddressCity/State/ZIP CodePhone Number [facility] [address] [place] [address], [place] [phone] * Type and screen(includes indirect vikas) (11/26/2024 4:34 PM EDT) Only the most recent of2 resultswithin the time period is included. ComponentValueRef RangeTest MethodAnalysis TimePerformed AtPathologist Signature ABOA1 5:41 PM [facility] DWHXBRJNKFDLJkswgvgi61/08/2025 5:41 PM [facility] LABORATORYAntibody NbnztoXhugtxne84/08/2025 5:41 PM [facility] LABORATORYSpecimen (Source)Anatomical Location / LateralityCollection Method / VolumeCollection TimeReceived TimeBloodVenous blood / Yjrmysw1011/26/2024 4:34 PM EDT1 5:04 PM EDT Narrative Authorizing ProviderResult TypeResult StatusRussnilay Green DOBLOOD BANK TEST ORDERABLESEdited Result - FinalPerforming OrganizationAddressCity/State/ZIP Code Phone Number [facility] [address] [place] [address], [facility] [address] [place] [address], [place] * ABO Rh Repeat (11/26/2024 1:35 PM EDT)ComponentValueRef RangeTest Method Analysis TimePerformed AtPathologist UbnghcafpDODU88/08/2025 2:42 PM EDT [facility]RHPositive11/26/2024 2:42 PM EDTPWestern Reserve Hospitalimen (Source)Anatomical Location / Laterality Collection Method / VolumeCollection TimeReceived TimeBloodVenous blood / UnknownVenipuncture / Woocjwr3911/26/2024 1:35 PM EDT1 1:38 PM EDT Narrative Authorizing ProviderResult TypeResult StatusNika SQUIRESCNPBLOOD BANK TEST ORDERABLESFinal ResultPerforming OrganizationAddressCity/State/ZIP CodePhone Number [facility] [address] [facility] [place] [address], [facility] [address] [place] [address], * SST TOP (11/26/2024 1:34 PM EDT)ComponentValueRef RangeTest MethodAnalysis TimePerformed AtPathologist SignatureExtra TubeAuto Exenxuvz40/08/2025 3:01 PM EDTPKINDRED HOSPITAL DAYTONpecimen (Source)Anatomical Location / LateralityCollection Method / VolumeCollection TimeReceived TimeBloodVenous blood / Rlgxpug1511/26/2024 1:34 PM EDT1 1:39 PM EDT Narrative Authorizing ProviderResult TypeResult StatusEulalio QUICK BLOOD ORDERABLES Final ResultPerforming OrganizationAddressty/State/ZIP CodePhone Number [address] [place] [address], * Light Blue Top (11/26/2024 1:34 PM EDT)ComponentValueRef RangeTest Method Analysis TimePerformed AtPathologist SignatureExtra TubeAuto Resulted 11/26/2024 3:01 PM EDTPROMEDARROYO GRANDE COMMUNITY HOSPITALpecimen (Source) Anatomical Location / LateralityCollection Method / VolumeCollection Time Received TimeBloodVenous blood / Mddognl5511/26/2024 1:34 PM EDT1 1:39 PM EDT Narrative Authorizing ProviderResult TypeResult StatusEulalio QUICK BLOOD ORDERABLES Final ResultPerforming OrganizationAddressCity/[facility]/ZIP CodePhone Number [address] [place] [address], * (ABNORMAL) Hemoglobin A1c (10/10/2024 2:39 PM EDT)ComponentValueRef RangeTest MethodAnalysis TimePerformed AtPathologist SignatureHEMOGLOBIN A1C7.0(H)4.4 - 5.6 %10/10/2024 7:07 PM [facility] LABORATORYComment: ?ADA Guidelines ?Result ?HgbA1c ? Normal : ? less than 5.7 % ? Prediabetes : ?5.7 % ??to 6.4 % Diabetes : > 6.4 % ?Use with caution in patients with abnormal hemoglobin variants as ??the half-life of red blood cells and in vivo glycation rates are ??affected. EST. AVERAGE QUUJATL889ek/dL10/10/2024 7:07 PM [facility] LABORATORYSpecimen (Source)Anatomical Location / LateralityCollection Method / VolumeCollection TimeReceived TimeBloodVenous blood / UnknownVenipuncture / Ovlwypl8210/10/2024 2:39 PM EDT10/10/2024 2:39 PM EDT Narrative Authorizing ProviderResult TypeResult StatusMarc John QUICK BLOOD ORDERABLES Final ResultPerforming OrganizationAddressCity/State/ZIP CodePhone Number [facility] [address] [place] [address], from Last 3 Months Insurance * Guarantor: Elif Shah AAccount TypeRelation to PatientDate of PhoneBilling AddressPersonal/WlnfvvHzbo08/22/1946 [address] [address] Advance Directives * Full Code (Latest Code Status on File) Date ActivatedDate ViamwcxahxdDgegdomn77/8/2025 5:39 PM10 5:47 PM Care Teams Team MemberRelationshipSpecialtyStart DateEnd Date Amador Lopez MD [address] [place] [phone] [facility] Dmipyqvh50/8/25
--- OUTSIDE RECORDS SUMMARY | 2024-12-12 18:27 | XMS_ITS | Encounter Summary ---
Author Organization [employer] s tem Address [id number] [address] [place] [address] Care Team Providers Care Casino Cashier Manager Name Role Phone Amador Lopez MD Primary Care Provider [phone] Encounter Details DateTypeDepartmentCare Team (Latest Contact Info)Ucjtxdelswj37/22/2025Travel Social History Tobacco UseTypesPacks/DayYears UsedDateSmoking Tobacco: NeverSmokeless Tobacco: NeverAlcohol UseStandard Drinks/WeekCommentsNot Currently0 (1 standard drink = 0.6 oz pure alcohol)[facility] UtilitiesAnswerDate RecordedIn the past 12 months has the electric, gas, oil, or water company threatened to shut off services in your home?No11/26/2024PHQ-2AnswerDate RecordedTotal Ptfmg624PRAPARE - TransportationAnswerDate RecordedIn the past 12 months, [...] a part of a household?No11/26/2024hildcareAnswerDate RecordedChildcareUnknown 07/31/2018EmploymentAnswerDate YwljinacWcbjlpgfdtXohtncp82/12/2019Hunger ScreeningAnswerDate RecordedWithin the past 12 months we worried whether our food would run out before we got money to buy more.Never True12/10/2024Within the past 12 months the food we bought just didn't last and we didn't have money to get more.Never True12/10/2024CommentsNoSex and Gender Information ValueDate RecordedSex Assigned at BirthNot on fileLegal HdvSjsptm78/06/2015 11:56 AM EDTGender IdentityNot on fileSexual OrientationNot on filedocumented as of this encounter Plan of Treatment DateTypeDepartmentCare Team (Latest Contact Info)Meytbxqyytd64/26/2025 1:00 PM ESTOffice Visit [facility] [address] [place] [address] Kirby Andersen MD [address] [place], [place] [address] documented as of this encounter Goals GoalPatient Goal TypeAssociated ProblemsRecent ProgressPatient-Stated?Author <enter goal here> Abbie Holland LSW Note: Evaluation of progress towards goal: plan to go to intermediate facility for rehab needs documented as of this encounter Visit Diagnoses Not on filedocumented in this encounter Additional Health Concerns AssessmentNoted TimePHQ-9 Depression Total Score: 5:16 PM EDT documented as of this encounter Care Teams Team MemberRelationshipSpecialtyStart DateEnd Date Amador Lopez MD [address] [place] [address] PCP - GeneralFamily Tolimqjw59/8/25documented as of this encounter
--- OUTSIDE RECORDS SUMMARY | 2024-12-12 18:28 | XMS_ITS | Encounter Summary ---
Author Organization [employer] Address [id number] [address] [place] [address] Care Team Providers Care Instructional Design Manager Name Role Phone Amador Lopez MD Primary Care Provider [phone] Encounter Details DateTypeDepartmentCare Team (Latest Contact Info)Vmkrewgxuri45/21/2025Orders Only [facility] [address] [place] [address] Maninder Byrd RN S/P hip hemiarthroplasty (Primary Dx) Social History Tobacco UseTypesPacks/DayYears UsedDateSmoking Tobacco: NeverSmokeless Tobacco: NeverAlcohol UseStandard Drinks/WeekCommentsNot Currently0 (1 standard drink = 0.6 oz pure alcohol)[facility] UtilitiesAnswerDate RecordedIn the past 12 months has the electric, gas, oil, or water company threatened to shut off services in your home?No11/26/2024PHQ-2AnswerDate RecordedTotal Rzlel958PRAPARE - TransportationAnswerDate RecordedIn the past 12 months, [...] as a part of a household?No11/26/2024hildcareAnswerDate RecordedChildcareUnknown 06/12/2019EmploymentAnswerDate MbkatdeoRfaxcjdziuSbzcvzs85/12/2019Hunger ScreeningAnswerDate RecordedWithin the past 12 months we worried whether our food would run out before we got money to buy more.Never True12/10/2024Within the past 12 months the food we bought just didn't last and we didn't have money to get more.Never True12/10/2024CommentsNoSex and Gender Information ValueDate RecordedSex Assigned at BirthNot on fileLegal HfsHmyrmg67/06/2015 11:56 AM EDTGender IdentityNot on fileSexual OrientationNot on filedocumented as of this encounter Plan of Treatment DateTypeDepartmentCare Team (Latest Contact Info)Wjkrferoudt08/26/2025 1:00 PM ESTOffice Visit [facility] [address] [facility] [facility] [address] [place] [address] Kirby Andersen MD [address] [facility] [address] [place] [address] documented as of this encounter Goals GoalPatient Goal TypeAssociated ProblemsRecent ProgressPatient-Stated?Author <enter goal here> Abbie Holland LSW Note: Evaluation of progress towards goal: plan to go to alf facility for rehab needs documented as of this encounter Results * X-ray hip right [...] this encounter Visit Diagnoses Diagnosis S/P hip hemiarthroplasty- Primary S/P hip hemiarthroplasty documented in this encounter Additional Health Concerns AssessmentNoted TimePHQ-9 Depression Total Score: 5:16 PM EDT documented as of this encounter Care Teams Team MemberRelationshipSpecialtyStart DateEnd Date Amador Lopez MD [address] [place] [address] PCP - GeneralFamily Szvftrfy79/8/25documented as of this encounter
--- OUTSIDE RECORDS SUMMARY | 2024-12-12 18:28 | XMS_ITS | Clinical Summary ---
Author Organization The [facility] Address [address] [place] [address] Care Team Providers Care Hand Outside Cutter Name Role Phone Amador Lopez MD Primary Care Provider [phone] Allergies Active AllergyReactionsCriticalityNoted DateCommentsClindamycinAnaphylaxis,Other High05/26/20162889EinlanpTqqlp46/08/2022CyclobenzaprineItching,Other,RashLow 12/11/20121304SrulvfmmwtzRqcewpei98/02/4225Kuo6706/02/2022ExenatideNausea Only,RashLow 12/27/2012Iodinated Contrast WtizkTvruj73/19/0000OgxrcXouoLds27/23/2013 PenicillinsItching,Other,RidfQhn9312/11/2012ProchlorperazineOther,Unknown 12/11/20126175Mosndgehvg82/02/0334Wueqxjakey36/14/2023TrazodoneNausea Only12/19/2019 Medications MedicationSigDispense QuantityRefillsLast FilledStart DateEnd DateStatus atorvastatin (Lipitor) 80 mg tablet Take 80 mg by mouth at bedtime.Active amLODIPine (Norvasc) 10 mg tablet Take by mouth in the morning.Active hydrALAZINE (Apresoline) 100 mg tablet Take 100 mg by mouth in the morning, at noon, and at bedtime.Active pantoprazole (ProtoNix) 40 mg EC tablet Take 40 mg by mouth in the morning and at bedtime. Do not crush, chew, or split. Active aspirin 81 mg EC tablet Take by mouth in the morning.Active PARoxetine (Paxil) 40 mg tablet Take 40 mg by mouth in the morning.Active montelukast (Singulair) 10 mg tablet Take 10 mg by mouth at bedtime.Active buPROPion SR (Wellbutrin SR) 150 mg 12 hr tablet Take by mouth in the morning and at bedtime. Do not crush, chew, or split.Active ALPRAZolam (Xanax) 0.5 mg tablet Take 0.5 mg by mouth if needed at bedtime for anxiety.Active sucralfate (Carafate) 1 gram tablet Take 1 g by mouth before breakfast, before lunch, before evening meal, and at bedtime.Active famotidine (Pepcid) 40 mg tablet Take by mouth.Active SITagliptin phosphate (Januvia) 100 mg tablet Take 25 mg by mouth in the morning.Active ondansetron ODT (Zofran-ODT) 4 mg disintegrating tablet Take 4 mg by mouth every 6 (six) hours if needed.12/19/2019Active metoclopramide (Reglan) 5 mg tablet Take 5 mg by mouth at bedtime.06/02/2022ctive cholecalciferol (Vitamin D-3) 25 MCG (1000 units) tablet Take 1 tablet by mouth in the morning.Active fluticasone (Flonase) 50 mcg/actuation nasal spray SPRAY 1 SPRAY INTO EACH NOSTRIL DAILY06/01/2022ctive HYDROcodone-acetaminophen (Giddings) 5-325 mg tablet Take 1 tablet by mouth if needed in the morning, at noon, and at bedtime. 06/05/2022ctive methocarbamol (Robaxin) 750 mg tablet 750 mg if needed in the morning, at noon, in the evening, and at bedtime. 12/05/2021ctive temazepam (Restoril) 30 mg capsule Take 30 mg by mouth at bedtime.01/12/2021ctive diazePAM (Valium) 5 mg tablet Indications:ClaustrophobiaTake 1 tablet by mouth 30 to 60 minutes prior to MRI for claustrophobia. May take 1 additional tablet if needed. 2 tablet 08/29/2022ctive Additional Information Patient not taking.Reported on 08/20/2023 carvedilol (Coreg) 6.25 mg tablet Indications:Benign hypertensive heart disease with heart failure (CMS/HCC)TAKE 1 TABLET BY MOUTH WITH BREAKFAST AND EVENING MEAL 180 tablet ctive sacubitril-valsartan (Entresto) 24-26 mg tablet Take 1 tablet by mouth two times daily.Active isosorbide dinitrate (Isordil) 30 mg tablet Take 30 mg by mouth four times daily.Active isosorbide mononitrate ER (Imdur) 30 mg 24 hr tablet Take 30 mg by mouth in the morning. Do not crush or chew.Active empagliflozin (Jardiance) 25 mg Take 25 mg by mouth in the morning.Active furosemide (Lasix) 40 mg tablet Indications:Chronic diastolic heart failure (CMS/HCC)Take 1 tablet (40 mg) by mouth in the morning. 90 tablet 306///6Active Active Problems ProblemNoted DateDiagnosed WqamAncoknlwtb90/01/2024Encounter for long-term (current) use of cizckqbbbbx26/23/2024Major depressive disorder, recurrent episode, mild03/13/2023 Overview (08/20/2023): Last Assessment & Plan: Mood stable with medication and continue. Primary osteoarthritis of both knees03/13/2023 Overview (08/20/2023): Last Assessment & Plan: Pain stable and use norco PRN. Abdominal massltered bowel Benign neoplasm of ascending colonradycardia01/31/2023 01/31/2023ardiovascular stress test ilwvombb50ellulitis of lower limbyst of ovaryyslipidemia Edema of lower qvjskoalr22Epigastric pain HyperkalemiaInsomnia Irritable bowel eppduymj10Nausea1Stage 3 chronic kidney rwjozis26ognitive communication deficit ysphagia, oral phaseastro-esophageal reflux disease without hhbtmaejita79nxiety disorder, gqpypollush29History of jfezued47Incisional hernia without obstruction or ccvgnwoq74Long QT syndrome Low back pain, icljgkzykca61Major depressive disorder, recurrent, njovlqqnlkb01Muscle weakness (generalized)Other urogenital tvaszamitza62/28/2023 01/31/2023Overflow incontinence of urineFibromyalgia ersonal history of transient ischemic attack (TIA), and cerebral infarction without residual bafvsteo73ulmonary hypertension, giecktshlyr23Seasonal allergic rhinitis Solitary cyst of unspecified Unspecified osteoarthritis, unspecified siteUnsteadiness on feetUnspecified abnormalities of gait and ghsrxqyf62/28/2023 01/31/2023rachnoid cyst05/16/2022Vitamin D gnqbrgydbm96 Coronary artery disease involving [place] coronary artery of [place] heart without angina jdnpmotw43/09/2022 Assessment & Plan (12/28/2021 4:20 PM EST): Continue goal-directed medical therapy aspirin lifelong, Plavix for at least 1 year post stent lastMay, Lipitor, carvedilol Continue risk factor modifications including heart healthy diet, regular exercise as tolerated- 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 06/24/21 Echo Assessment & Plan (12/28/2021 4:21 PM EST): Currently euvolemic without exacerbation Continue Lasix 20 mg daily Carotid artery rsuqccic47/09/2022 Assessment & Plan (12/28/2021 4:21 PM EST): Continue statin Angina jexmplni83ObesityType 2 diabetes mellitus without eoymtllkbqrm00 Family History Medical HistoryRelationNameCommentsStrokeFatherBreast cancerMotherRelationName StatusCommentsFatherDeceasedMotherDeceased Social History Tobacco UseTypesPacks/DayYears UsedDateSmoking Tobacco: NeverSmokeless Tobacco: NeverAlcohol UseStandard Drinks/WeekCommentsNot Currently0 (1 standard drink = 0.6 oz pure alcohol)[place] Safety & EnvironmentAnswerDate RecordedFear of Current or Ex-PartnerNot on file04/12/2023Emotionally AbusedNot on file04/12/2023hysically AbusedNot on file04/12/2023Sexually AbusedNot on file4Physically or Sexually AbusedNot on file04/12/2023CommentsUnknownSex and Gender InformationValueDate RecordedSex Assigned at BirthNot on fileLegal SexFemale 08/17/2021 10:16 PM EDTGender IdentityNot on fileSexual OrientationNot on file Last Filed Vital Signs Vital SignReadingTime TakenCommentsBlood Vyqfztvd578/5006 2:53 PM EDT Bjuqc229407/21/2024 2:53 PM EFVXexzmtzvcsa78.6 ??C (97.9 ??F)08/29/2022 2:36 PM EDTRespiratory Rate--Oxygen Luliagohif56%07/21/2024 2:53 PM EDTInhaled Oxygen Concentration--Osjvcq22.4 kg (175 lb)07/21/2024 2:53 PM QEEEdooob130.5 cm (5' 2 )07/21/2024 2:53 PM EDTBody Mass Index32.01007/21/2024 2:53 PM EDT Plan of Treatment Health MaintenanceDue DateLast DoneCommentsMedicare Annual Wellness (AWV) 1945Diabetes: Retinopathy Rwymgzets71/22/1958Depression Screening 1959Pneumococcal Vaccine: 50+ Years (1 of 2 - PCV)07/10/1966Adult Tetanus 07/10/1969Zoster Vaccines (1 of 2)07/10/1997Fall Risk Efmrpieyc14/22/2013 Diabetes: Hemoglobin A1C5003/19/2024OVID-19 Vaccine (1 - season)2024Influenza Vaccine (#1), 11/23/2023, 11/23/2021, Additional history rgrkltUwpohjfueqkCqhsvbfxhvxb49/22/2021olorectal Cancer ScreeningDiscontinuedCT ColonographyDiscontinuedFIT-DNADiscontinuedFIT DiscontinuedFOBTDiscontinuedHIB VaccinesAged OutNo longer eligible based on patient's age to complete this topicHPV VaccinesAged OutNo longer eligible based on patient's age to complete this topicIPV VaccinesAged OutNo longer eligible based on patient's age to complete this topicMeningococcal B VaccineAged OutNo longer eligible based on patient's age to complete this topicMeningococcal VaccineAged OutNo longer eligible based on patient's age to complete this topic Rotavirus VaccinesAged OutNo longer eligible based on patient's age to complete this topicSigmoidoscopyDiscontinued Medical Devices ImplantedTypeAreaManufacturerDevice IdentifierShelf Expiration DateModel / Serial / LotStentHeartDescription:Patient has 2 Resolute melva stents 3000 gauss/cm 2.0 w/kg normal op mode, cards in director multimedia Patient also has a Promus Element stent 900 gauss/cm 2.0 w/kg normal op mode info in director multimedia Patient has a multi link vision stent that is safe for 1.5 only at 450gauss/cm info in director multimedia. Insurance Care Teams Team MemberRelationshipSpecialtyStart DateEnd Date Amador Lopez MD [address] [place] [address] [facility]12/27/21
--- NOTE | 2024-12-12 18:30 | CT_ITS ---
The [address] [address] Patient Name: RIVKA TURNER MRN: [id number] date: 1945 Sex: F Assigned Patient Location: ED.MAIN Current Patient Location: ED.MAIN Accession/Order Number: [id number] Exam Date: 12/12/2024 19:47 Report Date: 12/12/2024 20:08 At the request of: SAVANNAH WHIPPLE DO Procedure: CT head/brain wo con CT BRAIN WITHOUT CONTRAST: CLINICAL HISTORY: AMS COMPARISON: 11/18/2023 TECHNIQUE: Contiguous axial unenhanced images were obtained through the brain. This CT exam was performed using one or more following dose reduction techniques: Automated exposure control, adjustment of the mA and/or kV according to patient size, or use of iterative reconstruction technique. FINDINGS: There is no evidence of midline shift, intra or extra-axial fluid collection, hemorrhage or CT evidence of acute large vascular distribution stroke. Central involutional changes and chronic small vessel ischemic disease. There are vascular disease. Right frontal dural based calcification unchanged from prior examination. Visualized intraorbital contents appear unremarkable. Tvnw-qw-awjxhhjz sinus disease. Mastoids are clear. The surrounding soft tissues are normal. CT/CT head/brain wo con IMPRESSION: NO ACUTE INTRACRANIAL ABNORMALITY. MILD CHRONIC SMALL VESSEL ISCHEMIC DISEASE. Impression dictated by: Neymar Daly M.D. 12/12/2024 8:08 PM Dictation Location: [place] [address] Electronically authenticated by: [id number] Y Date: 12/12/2024 20:08
--- NOTE | 2024-12-12 18:30 | ECG_ITS ---
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 Measurements Intervals Tiller Rate: 56 P: 100 KS: 230 QRS: 25 QRSD: 88 T: 33 QT: 440 QTc: 433 Interpretive Statements 1100 Sinus rhythm 2231 First degree AV block 9150 abnormal ECG Compared to ECG 04/23/2024 17:29:28 First degree AV block now present Ventricular premature complex(es) no longer present T-wave abnormality no longer present Electronically Signed On 12-12-2024 18:37:06 EDT by CAROLINA MARTIN M.D.
--- NOTE | 2024-12-12 18:30 | XR_ITS ---
The [place] [id number] Patient Name: RIVKA TURNER MRN: [id number] date: 1945 Sex: F Assigned Patient Location: ED.MAIN Current Patient Location: ED.MAIN Accession/Order Number: [id number] Exam Date: 12/12/2024 19:47 Report Date: 12/12/2024 20:06 At the request of: SAVANNAH WHIPPLE DO Procedure: XR chest 1V PA CHEST: CLINICAL HISTORY: AMS, r/o PNA COMPARISON: CT chest 04/22/2024 Enlarged cardiac silhouette. Minor perihilar congestion. Right suprahilar opacity noted. Lungs otherwise clear. No effusion or pneumothorax. XR/XR chest 1V IMPRESSION: Streaky right suprahilar opacity. Mild CHF findings. Recommend follow-up to resolution. Impression dictated by: Neymar Daly M.D. 12/12/2024 8:06 PM Dictation Location: [place] [address] Electronically authenticated by: [id number] Y Date: 12/12/2024 20:06
[2024-12-12 18:51] LABS: Hematocrit 25.6 % (36.0-48.0); Hemoglobin 8.0 g/dL (12.0-16.0); Immature Granulocytes Abs Auto 0.02 10^3/uL (0.00-0.03); Immature Granulocytes Pct Auto 0.2 % (0.0-0.5); Lymphocytes Absolute Auto 1.0 10^3/uL (1.2-3.8); Mean Corpuscular HGB Conc 31.3 g/dL (29.9-35.2); Mean Corpuscular Hemoglobin 33.1 pg (26.7-34.0); Mean Corpuscular Volume 105.8 fL (81.0-99.0); Platelet Count 302 10^3/uL (150-450); White Blood Count 9.5 10^3/uL (4.0-11.0)
--- NOTE | 2024-12-12 18:57 | ED.GENADUL1 ---
HPI HPI - General Adult General Chief complaint: Altered Mental Status Stated complaint: OTHER Time Seen by Provider: 12/12/24 18:01 Source: patient and family Mode of arrival: ambulance Limitations: altered mental status History of Present Illness HPI narrative: Patient is a 79-year-old female with extensive medical history presenting to the emergency department from subacute rehab for concerns of altered mental status. The patient is 2 weeks postop from right hip surgery. The family was concerned because the patient seems to be confused. The patient herself states she has some pain in the right lower extremity, but really has no other complaints. She does seem confused, her history is likely limited because of this. She denies any current headache, neck pain, chest pain, shortness of breath, abdominal pain, nausea, vomiting, constipation, dysuria, hematuria, or diarrhea. She denies any falls or injuries. The daughter/granddaughter are at the bedside who provides further history. She states that the patient has been at the [facility] rehabbing her recent right hip replacement. Over the last 2 weeks, the patient has been complaining of pain in the back of her head. The doctor at the [facility] prescribed her methocarbamol, which has not seemed to help the pain. Otherwise, the patient has been doing well in rehab. However, today, they noticed the patient seemed to be getting more confused and has a hard time answering questions. They state this is reminiscent of the last time she was severely dehydrated. They also noted that the patient's had frequent UTIs in the past. They deny any falls or injuries as well. Related Data Home Medications ?Medication ?Instructions ?Recorded ?Confirmed amlodipine 10 mg tablet 10 mg PO DAILY 11/18/23 12/12/24 atorvastatin 80 mg tablet 80 mg PO .QHS 11/18/23 12/12/24 bupropion HCl 150 mg 24 hr tablet, 150 mg PO DAILY 11/18/23 12/12/24 extended release cholecalciferol (vitamin D3) 25 25 mcg PO DAILY 11/18/23 12/12/24 mcg (1,000 unit) tablet famotidine 40 mg tablet 40 mg PO DAILY 11/18/23 12/12/24 montelukast 10 mg tablet 10 mg PO .QHS 11/18/23 12/12/24 pantoprazole 40 mg tablet,delayed 40 mg PO DAILY 11/18/23 12/12/24 release paroxetine HCl 40 mg tablet 40 mg PO DAILY 11/18/23 12/12/24 sitagliptin phosphate 25 mg tablet 25 mg PO DAILY 11/18/23 12/12/24 (Januvia) aspirin 81 mg tablet,delayed 81 mg PO DAILY 04/02/24 12/12/24 release (Adult Aspirin Regimen) carvedilol 25 mg tablet 25 mg PO BID 04/02/24 12/12/24 fluticasone propionate 50 2 spray intranasal DAILY PRN nasal 04/02/24 12/12/24 mcg/actuation nasal congestion spray,suspension furosemide 20 mg tablet 40 mg PO DAILY 04/22/24 12/12/24 acetaminophen 500 mg capsule 1,000 mg PO Q8H PRN fever or pain 12/12/24 12/12/24 baclofen 10 mg tablet 10 mg PO DAILY PRN pain 12/12/24 12/12/24 baclofen 10 mg tablet 10 mg PO QPM 12/12/24 12/12/24 empagliflozin 25 mg tablet 25 mg PO DAILY 12/12/24 12/12/24 (Jardiance) heparin, porcine (PF) 5,000 5,000 unit subcut Q6H 12/12/24 12/12/24 unit/0.5 mL injection solution hydralazine 50 mg tablet 50 mg PO BID 12/12/24 12/12/24 insulin lispro 100 unit/mL 1 sliding scale dose subcut 12/12/24 12/12/24 subcutaneous solution (Admelog USEASDIRECTD U-100 Insulin lispro) oxycodone 5 mg capsule 5 mg PO Q6H PRN pain 12/12/24 12/12/24 polyethylene glycol 3350 17 17 g PO QDAY 12/12/24 12/12/24 gram/dose oral powder (ClearLax) sennosides 8.6 mg-docusate sodium 2 tab-cap PO BEDTIME 12/12/24 12/12/24 50 mg tablet (Colace 2-In-1) temazepam 15 mg capsule 7.5 mg PO QPM 12/12/24 12/12/24 Previous Rx's ?Medication ?Instructions ?Recorded isosorbide mononitrate 30 mg 30 mg PO QD #30 tabs 04/24/24 tablet,extended release 24 hr Allergies Allergy/AdvReac Type Severity Reaction Status Date / Time cyclobenzaprine (From Allergy Severe Rash Verified 04/22/24 10:50 Flexeril) ethinyl estradiol (From Allergy Severe Swelling Verified 04/22/24 10:50 [place] (28)) of Lip/Tongue/Throat exenatide (From [place]) Allergy Severe Rash Verified 04/22/24 10:50 Iodinated Contrast Media Allergy Severe Rash Verified 04/22/24 10:50 levonorgestrel (From [place] Allergy Severe Swelling Verified 04/22/24 10:50 (28)) of Lip/Tongue/Throat Penicillins Allergy Severe Rash Verified 04/22/24 10:50 prochlorperazine (From Allergy Severe Confusion Verified 04/02/24 13:30 Compazine) clindamycin (From Cleocin) AdvReac Severe esophagus Verified 04/22/24 10:50 spasms doxycycline AdvReac Severe Nausea Verified 04/22/24 10:50 levofloxacin AdvReac Severe Nausea Verified 04/22/24 10:50 ticagrelor (From Brilinta) AdvReac Severe Vomiting Verified 04/22/24 10:50 trazodone AdvReac Severe Nausea Verified 04/22/24 10:50 Opioid HPI Opioid Management Most Recent Opioid Data: Last Pain Scale 4 04/24/24, 16:00 Last Pain Intensity 0 04/04/24, 10:06 Last ORT Total Score 0 04/22/24, 14:59 Last ORT Risk Category Low Risk 04/22/24, 14:59 Review of Systems ROS Status of ROS 10 or more systems reviewed and unremarkable except as noted in history and below [facility] Medical History (Updated 04/28/24 @ 00:00 by ) Fall ?W19.XXXA - Unspecified fall, initial encounter (ICD-10) Anterior chest wall pain ?R07.89 - Other chest pain (ICD-10) Lumbar transverse process fracture ?S32.009A - Unspecified fracture of unspecified lumbar vertebra, initial encounter for closed fracture (ICD-10) Acute hyperglycemia ?R73.9 - Hyperglycemia, unspecified (ICD-10) Acute UTI ?N39.0 - Urinary tract infection, site not specified (ICD-10) Weakness ?R53.1 - Weakness (ICD-10) UTI (urinary tract infection) ?N39.0 - Urinary tract infection, site not specified (ICD-10) Elevated troponin ?R79.89 - Other specified abnormal findings of blood chemistry (ICD-10) Generalized weakness ?R53.1 - Weakness (ICD-10) Fall ?W19.XXXA - Unspecified fall, initial encounter (ICD-10) HTN (hypertension) ?I10 - Essential (primary) hypertension (ICD-10) HLD (hyperlipidemia) ?E78.5 - Hyperlipidemia, unspecified (ICD-10) CAD (coronary artery disease) ?I25.10 - Atherosclerotic heart disease of [place] coronary artery without angina pectoris (ICD-10) History of heart attack ?I25.2 - Old myocardial infarction (ICD-10) History of stroke ?Z86.73 - Personal history of transient ischemic attack (TIA), and cerebral infarction without residual deficits (ICD-10) Diabetes ?E11.9 - Type 2 diabetes mellitus without complications (ICD-10) Surgical History (Updated 11/18/23 @ 12:47 by Leona Mario LPN) History of heart artery stent ?Z95.5 - Presence of coronary angioplasty implant and graft (ICD-10) Hx of cholecystectomy ?Z90.49 - Acquired absence of other specified parts of digestive tract (ICD-10) H/O hernia repair ?Z98.890 - Other specified postprocedural states (ICD-10) ?Z87.19 - Personal history of other diseases of the digestive system (ICD-10) Family History (Updated 11/18/23 @ 12:46 by Leona Mario LPN) Mother Family history of COPD (chronic obstructive pulmonary disease) Family history of cancer Family history of diabetes mellitus Father Family history of hypertension Social History (Updated 11/18/23 @ 12:49 by Leona Mario LPN) Within the past year, how often did you have a drink containing alcohol: never Within the past year, how often did you have six or more drinks on one occasion: never Score interpretation: A score less than 3 is consistent with normal alcohol consumption. Smoking status: Never smoker Second hand tobacco smoke exposure: No Non-prescribed substance use: denies use Previous occupational history: retired Known occupational exposures/hazards: No Highest level of school completed/degree received: GED or equivalent Are you now , , , , never or living with a partner: In a typical week, how many times do you talk on the telephone with family, friends, or neighbors: 3 or more times per week How often do you get together with friends or relatives: 3 or more times per week How often do you attend jew or worship services: never Do you belong to any clubs or organizations such as jew groups unions, fraternal or athletic groups, or school groups: no Total score: 1 Score interpretation: A score of less than or equal to 1 indicates the most socially isolated. Little interest or pleasure in doing things: not at all Feeling down, depressed, or hopeless: not at all Feel stressed/tense/nervous/anxious/difficulty sleeping: not at all Due to disability, difficulty making decisions: No Do you think of yourself as: straight/heterosexual Gender Identity: female Exam Narrative Exam Narrative: CONSTITUTIONAL: Patient is awake and alert, she is oriented x 3 but appears confused. She is able to follow commands, but is slow and sluggish to comprehend what I am saying SKIN: Was warm and dry, nondiaphoretic. EYES: PERRLA, EOMI, no scleral icterus or conjunctival pallor EARS, NOSE, THROAT: Bilateral TMs are unable to be visualized secondary to cerumen. There is no mastoid tenderness. Dry oral mucosa. RESPIRATORY: Clear to auscultation bilaterally, no wheezes, crackles, or stridor, no use of accessory muscles CARDIOVASCULAR: Normal rate and regular rhythm. There is no S3, S4, murmur, rub. Dorsalis pedis pulses are 2+ and symmetrical. GASTROINTESTINAL: Abdomen was soft, non-tender, and non-distended. There is no guarding or rebound tenderness MUSCULOSKELETAL: The surgical incision sites in the proximal right lower extremity appear clean, dry, intact without cellulitic changes or purulent drainage. There was no lower extremity edema, erythema, or tenderness. NEUROLOGIC: Patient is awake and alert. 5/5 strength in the bilateral upper extremities. 5/5 strength in the left lower extremity. Strength testing the right lower extremity is limited secondary to recent hip surgery. Sensation intact to light touch in the bilateral upper/lower extremities. Facies were symmetrical. No dysarthria. Tongue protrudes midline. Constitutional Vital Signs, click to edit/add: Last Vital Signs Temp 99.1 F 12/12/24 17:59 Pulse 61 12/12/24 17:59 Resp 18 12/12/24 17:59 BP 151/58 H 12/12/24 17:59 Pulse Ox 95 12/12/24 17:59 O2 Del Method Room Air 12/12/24 17:59 Course Vital Signs Vital signs: Vital Signs Temperature 99.1 F 12/12/24 17:59 Pulse Rate 61 12/12/24 17:59 Respiratory Rate 18 12/12/24 17:59 Blood Pressure 151/58 H 12/12/24 17:59 Pulse Oximetry 95 12/12/24 17:59 Oxygen Delivery Method Room Air 12/12/24 17:59 Temperature 99.1 F 12/12/24 17:59 Pulse Rate 61 12/12/24 17:59 Respiratory Rate 18 12/12/24 17:59 Blood Pressure 151/58 H 12/12/24 17:59 Pulse Oximetry 95 12/12/24 17:59 Oxygen Delivery Method Room Air 12/12/24 17:59 Medical Decision Making MDM Narrative Medical decision making narrative: Patient is a 79-year-old female, s/p right hip replacement 2 weeks ago currently in rehab at the [place], presenting to the emergency department for evaluation of generalized weakness/confusion. Vital signs on arrival are significant for mild hypertension, otherwise were within normal limits. She is afebrile hemodynamically stable. She is breathing comfortably on room air, saturating 95% with clear breath sounds. The surgical incision site appears to be healing well without evidence of infection. She has no focal neurologic deficits, oriented x 3. She does seem to be generally weak and dehydrated. Differential diagnosis includes dehydration, JAKI, UTI, pneumonia, intracranial hemorrhage, ACS, anemia, or other electrolyte/metabolic derangement. IV was established and laboratory studies were obtained. CT head without contrast was ordered. She was given a 500 cc bolus of normal saline - she does have history of CHF but does not appear to be volume overloaded. 12 Lead EKG: Sinus bradycardia at a rate of 56. Normal axis. No ST segment elevations. QRS, DC, and QTc interval within normal limits. Final impression: Sinus bradycardia without evidence of acute myocardial ischemia My shift is coming to an end. At the time of signout to Dr. Zuñiga, laboratory studies, chest x-ray, and CT head were pending. Medical Records Medical records reviewed: Yes I reviewed the patient's medical records ECG Data Attestation: I personally reviewed and interpreted this ECG as follows: Discharge Plan Discharge Patient Disposition: Still a Patient
[2024-12-12 19:08] LABS: Ammonia <10 umol/L (11-32)
[2024-12-12 19:09] LABS: Red Blood Count 2.42 10^6/uL (4.20-5.40)
[2024-12-12] MEDS: 0.9 % SODIUM CHLORIDE 1,000 ML 500 ML IV (19:13)
[2024-12-12 19:14] LABS: Lactate/Lactic Acid 1.7 mmol/L (0.4-2.0)
--- NOTE | 2024-12-12 19:16 | PC.NURSE ---
18:53- Bedside patient report given to BRIAN Cordoba at this time
[2024-12-12 19:21] LABS: Acetaminophen 5.7 ug/mL (10.0-30.0); Alanine Aminotransferase 25 U/L (14-59); Albumin Globulin Ratio 0.8; Albumin Level 2.8 g/dL (3.4-5.0); Alkaline Phosphatase 75 U/L (46-116); Anion Gap 13.6; Aspartate Amino Transferase 9 U/L (15-37); Blood Urea Nitrogen 48.0 mg/dL (7.0-18.0); Calcium 9.1 mg/dL (8.5-10.1); Carbon Dioxide 30.4 mmol/L (21.0-32.0); Chloride 105 mmol/L (98-107); Estimated GFR (African America 19 (>=60 mL/min/1.73m^2); Estimated GFR (Non-African Ame 15 (>=60 mL/min/1.73m^2); Globulin 3.3 g/dL; Glucose 223 mg/dL (74-106); Potassium 5.0 mmol/L (3.5-5.1); Salicylate <2.8 mg/dL (<=19.9); Sodium 144 mmol/L (136-145); Total Protein 6.1 g/dL (6.4-8.2)
--- OUTSIDE RECORDS SUMMARY | 2024-12-12 19:26 | XMS_ITS | CCD ---
Author Organization Unknown Care Team Providers Care [facility] Plater Name Role Phone Unavailable Primary Care Provider Unavailabl e Unavailable Chronic Care Management Unavaila ble Summary Purpose DataExchange Insurance Providers Payer name Policy type / Coverage type Covered republican ID Effective Begin Date Effective End Date [facility] [id number] Unknown Unknown Family History Family History data not found Medication Administered No Medication Administered data Reason For Visit No Reason For Visit data Medical Equipment No Medical Equipment data Advance Directives No Advance Directive data
[2024-12-12 19:31] LABS: Glucose Urine UA >=1000 mg/dL (NEGATIVE)
[2024-12-12 19:38] LABS: Cast Seen? NONE SEEN #/LPF (NONE SEEN); Crystals Seen? None Seen #/HPF (None Seen)
[2024-12-12 19:39] LABS: Urine Culture Indicated YES-FRMC
[2024-12-12 21:09] LABS: NT Pro B Type Natriuretic Pept 5783.0 pg/mL (<=1800.0)
--- OUTSIDE RECORDS SUMMARY | 2024-12-12 23:02 | XMS_ITS | CCD ---
Author Organization [facility] Care Team Providers Care Can Doffer Name Role Phone ROSIE MELLO Unavailable Unavailable SVEN WILKINS Unavailable Unava ilable KELLI HANKINS Admitting Unavailable KELLI HANKINS Attending Unavailable AMADOR ABDALLA Primary Care Unavailable ROSIE LEWIS Referring Unavailable Unavailable Primary Care Provider Unavailromie e MD Amador Abdalla Primary Care Provider MD Xander Hammer Admit Provider SHAHNAZ Pittman Other Provider Unavailable DO Gen Bolivar Other Provider MD Wil Domínguez Other Provider MD Zafar Luu Other Provider MD Isabel Beckwith Other Provider [phone] MD Rufus Sauceda Other Provider ARIEL Resendiz Other Provider MD Latosha Figueroa Other Provider MD Dinora Haynes Other Provider MD Rahul Hi Other Provider MD Rusty Amor Attending Provider [phone] PROVIDER, UNKNOWN Attending Unavailable PROVIDER, UNKNOWN Admitting Unavailable Unavailable Unavailable Amador Abdalla Primary Care Unavailable Elba Pittman Consulting Unavailable Xander Hammer Admitting Unavailab Rusty Ontiveros Attending Unavailable Gen Bolivar Consulting Unavailable Wil Domínguez Consulting Unavailable Zafar Luu Consulting Unavail able Isabel Beckwith Consulting Unavailable Rufus Sauceda Consulting Unavailab Sandra Torres Consulting Unavailable Figueroa Latosha Consulting Unavailable [place], Dinora Najeeb Consulting Unavailab alverto Hi, Tarek Consulting Unavailable NADERER, DR AMADOR Arcos Consulting Unavailable NADERER, DR AMADOR Arcos Attending Unavailable NADERER, DR AMADOR Arcos Admitting Unavailable NADERER, DR AMADOR Arcos Primary Care Unavailable NADERER, DR AMADOR Arcos Primary Care Unavailable FAWWAD, GRGEORIO H Admitting Unavailable WEST, DR CHRYSTAL Howard Consulting Unavailable FAWWAD, GREGORIO H Attending Unavailable FAWWAD, GREGORIO H Consulting Unavailable NADERER, DR AMADOR Acros Primary Care Unavailable TYSON, DR ANN Consulting Unavailable TYSON, DR ANN Attending Unavailable TYSON, DR ANN Admitting Unavailable MOUKARBEL, DR FIGUEROA Attending Unavailable MOUKARBEL, DR FIGUEROA Admitting Unavailable NADERER, DR AMADOR Arcos Primary Care Unavailable NADERER, DR AMADOR Arcos Primary Care Unavailable FAWWAD, GREGORIO H Attending Unavailable NELSON .TARA Consulting Unavailable FAWWAD, GREGORIO H Admitting Unavailable FAWWAD, GREGORIO H Consulting Unavailable BACHRAANA PAULA EDWARDS Consulting Unavailable UNLUSAI Consulting Unavailable NADERER, DR AMADOR Arcos Primary Care Unavailable JOSE C .DR LAU Consulting Unavailable HOY ., DR LAU Attending Unavailable HOY ., DR LAU Admitting Unavailable PAY ., DR REGAN Consulting Unavailable GRECHLESTER .VIGNESH Consulting Unavailabl e POLICARO, NASRIN Consulting Unavailable TRENTON COLLINS D Consulting Unavailable TRENTON COLLINS Attending Unavailable TRENTON [...] Unavailable HAY ., DR FLEMING Admitting Unavailable GRECHLESTER MarsVIGNESH Consulting Unavailabl e NADERER, DR AMADOR Arcos [...] Primary Care Unavailable POLICARO, NASRIN Consulting Unavailable Amador Abdalla MD Primary Care Provider [facility], [place] Unavailable [phone] Miguel Blank MA Unavailable Unavailable Amador Abdalla MD Primary Care Provider [phone] Amador Abdalla MD Primary Care Provider [phone] Amador Abdalla MD Unavailable Sharon De La Rosa Attending Unavailable Miguel Blank MA Unavailable OBED LUCIO Attending Unavailable NADERER, AMADOR Attending Unavailable TURNER WILKINS Attending Unavailable NADERER, AMADOR Attending Unavailable TURNER WILKINS Attending Unavailable NADERER, AMADOR Attending Unavailable TURNER WILKINS Attending Unavailable JORIEREAMADOR Rojas Attending Unavailable AMADOR ABDALLA Referring Unavailable NADEREEva, AMADOR Primary Care Unavailable NADEREAMADOR Rojas Referring Unavailable NADEREEva, AMADOR Primary Care Unavailable NADEREEva, AMADOR Primary Care Unavailable SHAWN SANTIAGO Attending Unavailable Amador Abdalla MD Primary Care Provider [phone] Amador Abdalla MD Primary Care Provider AMADOR ABDALLA Primary Care Unavailable ISMAIL, HIBAH H Admitting Unavailable YASMIN GOODRICH Attending Unavailable PRETTY, DANE Consulting Unavailable JORIEREAMADOR Rojas Referring Unavailable JORIEREEva, AMADOR Primary Care Unavailable AMADOR ABDALLA Referring Unavailable JOHN, AMADOR Primary Care Unavailable KIRBY CUEVA Referring Unavailable NADEREEva, AMADOR Primary Care Unavailable KIRBY CUEVA Attending Unavailable NADADORE, AMADOR Referring Unavailable NADERER, AMADOR Primary Care Unavailable Allergies Allergy ClassificationReported Allergen(s)Allergy TypeDate of OnsetReaction(s) Facility (7 sources)Clindamycin; Translations: [CLINDAMYCIN]Drug Xvuvhlm06-48-3597 [facility] ([facility] source)CodeineDrug Doeptoz66-34-0788Nvk [facility] (2 sources)cyclobenzaprine; Translations: [Flexeril]Drug Yafnqhl56-03-7862Vva [facility]ository (3 sources)exenatideDrug Zsqtcqb87-57-7775Ght [facility] Repository (6 sources)Penicillins; Translations: [PENICILLINS]Drug allergy (disorder) 00-95-3060IjptazhExm [facility] (2 sources)Prochlorperazine; Translations: [Compazine]Drug Hrbddsn20-09-7823Sae [facility] Repository (2 sources)Iodinated Contrast Media - IV DyeDrug allergy (disorder)32-27-2445Zsj [facility] (1 source)trival; Translations: [trival]Propensity to adverse reactions (disorder)30-33-9593Eon [facility] Repository (4 sources)Amoxicillin; Translations: [amoxicillin]Drug Eyzdlby13-95-8002Mnqvado ReactionMer[facility] Health [facility] (20 sources)cyclobenzaprine; Translations: [cyclobenzaprine]Drug Allergy 11-85-8512Losvzwg, Hives, Rash, Other (See Comments)[facility] (20 sources)Doxycycline; Translations: [doxycycline]Drug Dcydber95-35-[address] [facility] (20 sources)exenatide; Translations: [exenatide]Drug Zbrspic96-61-0025Wgifpp Only, Rash, GI DisturbanceMer[facility] (20 sources)Prochlorperazine; Translations: [prochlorperazine]Drug Allergy 16-95-3015Vfajz (See Comments)[facility] (20 sources)Sucralfate; Translations: [sucralfate]Drug Fqlmuvv40-20-6211Nwqdm, Other (See Comments)[facility] (20 sources)traZODone; Translations: [trazodone]Drug Gryzqor76-91-3604Spgwpa Only, GI intolerance, GI DisturbanceMer[facility] (20 sources)Iodinated Contrast Media; Translations: [Iodinated Contrast Media] Allergy to gkyoalgbl45-50-4062Fuccg, Other (See Comments)[facility] (5 sources)Clindamycin; Translations: [clindamycin]Drug Sidlzhy00-14-4401 Anaphylaxis, Other (See Comments)[facility] [employer] (2 sources)Penicillins; Translations: [Penicillins]Allergy to drug (finding)[facility] 250 DO Work Phone: (1 source)ClindamycinDrug Wbeaqhl12-18-7955BnjypuzwiMercy Health St. [facility] Rep[facility] (1 source)PenicillinsDrug allergy (disorder)18-40-3577QmpguozevMercy Health St. [facility] Rep[facility] (1 source)ClindamycinDrug AllergyThe [facility] (1 source)cyclobenzaprineDrug AllergyThe [facility] (1 source)LevamisoleDrug Udvvdsf02-11-8417Kxc [facility] Repository (1 source)liraglutideDrug Tglpoke43-32-6717Iis [facility] Repository (1 source)ProchlorperazineDrug AllergyThe [facility] (2 sources)[place] (28)Drug allergy (disorder)[facility] Repository (1 source)Misc-DrugDrug allergy (disorder)[facility] (20 sources)Codeine; Translations: [CODEINE]Drug Mjviwib34-67-4925Fcwpg, Other (See Comments)[facility] (20 sources)levoFLOXacin; Translations: [LEVOFLOXACIN]Drug Xbflbyv25-98-0502PBDF Healthcare (20 sources)liraglutide; Translations: [LIRAGLUTIDE]Drug Xgksxwb83-90-2579Ytieto OnlyNOID Healthcare (20 sources)PenicillinsDrug Uxyjskl96-70-9221Chcblwc, Hives, RashNOMS Healthcare (20 sources)PromethazineDrug Swcvjio02-15-3019KQGO Healthcare (20 sources)Ticagrelor; Translations: [TICAGRELOR]Propensity to adverse dswnovxat61-49-9843MOTO Healthcare (1 source)Clindamycin; Translations: [Cleocin HCl]Drug AllergyFisher [facility] (1 source)Penicillin; Translations: [penicillin]Drug AllergyOhio[facility] (1 source)Byetta Prefilled Pen; Translations: [Byetta Prefilled Pen]Propensity to adverse reactions (disorder)[facility] Repository (6 sources)Contrast media; Translations: [DYE]Propensity to adverse reactions to drug (disorder)62-97-9096KzxvcaaiutNationwide [facility] Repository (6 sources)OTHER; Translations: [OTHER]Propensity to adverse reactions (disorder)81-03-8729YrvsYuokocyxmfMercy Health [facility] Repository (5 sources)Ethinyl Estradiol; Translations: [ETHINYL ESTRADIOL]Drug Allergy 79-05-9747Sgsuz (See Comments)[facility] Repository (5 sources)Levonorgestrel; Translations: [LEVONORGESTREL]Drug Esvsrze67-75-7504 Other (See Comments)[facility] Repository (3 sources)liraglutideDrug Yjlvbdi42-90-1252ZN [facility] [employer] (3 sources)PenicillinsPropensity to adverse reactions to lpwf82-60-9284Cotuub Swelling, Hives, Itching, Other (See Comments), [facility] (3 sources)TicagrelorDrug Azxhxkv20-24-7487VcvGnudbn [employer] [facility] [facility] Medications Current Medications MedicationDrug Class(es)DatesSig (Normalized)Sig (Original)acetaminophen 500 mg oral tablet (20 sources)Start: 11-26-2024 End: 53-48-8454nagz 2 tablets by mouth every eight hoursacetaminophen (TYLENOL EXTRA STRENGTH) 500 mg tablet Take 2 tablets (1,000 mg total) by mouth every8 (eight) hours. 12/01/2024 Activetake 2 tablets by mouth every eight hours as needed for painacetaminophen (Tylenol) 500 MG tablet Take 1,000 mg by mouth every 8 (eight) hours if needed for mild pain Activeacetaminophen 325 mg / HYDROcodone bitartrate 5 mg oral tablet (20 sources)Opioid AgonistStart: 06-09-2024 End: 41-40-1304uuhk 1 tablet by mouth four times daily as needed for pain HYDROcodone-acetaminophen (Bridgeton) 5-325 MG tablet Indications: Primary osteoarthritis of both kneesTake 1 tablet by mouth 4 (four) times a day as needed for severe pain 90 tablet 06/09/2024 07/09/2024 ActiveStart: 02-25-2024 End: 69-52-0832icnt 1 tablet by mouth four times daily as needed for pain HYDROcodone-acetaminophen (Bridgeton) 5-325 MG tablet Indications: Primary osteoarthritis of both kneesTake 1 tablet by mouth 4 (four) times a day as needed for severe pain 90 tablet 02/25/2024 03/26/2024 ActiveStart: 09-24-2023 End: 81-06-2753vtev 1 tablet by mouth three times daily as needed for pain HYDROcodone-acetaminophen (Bridgeton) 5-325 MG tablet Indications: Primary osteoarthritis of both kneesTake 1 tablet by mouth 3 (three) times a day as needed for severe pain 90 tablet 01/23/2024 02/25/2024 DiscontinuedStart: 94-09-4195bkym 1 tablet by mouth every eight hoursHydrocodone-Acetaminophen Active 1 TAB PO Q8H June 24, 2021 4:16amalogliptin 6.25 mg oral tablet (8 sources)Start: 05-23-2024 End: 52-69-2019mrdb 1 tablet by mouth once dailyalogliptin (Nesina) 6.25 MG tablet tablet Indications: Type 2 diabetes mellitus with hyperglycemia,without long-term current use of insulin ([facility]) Take 1 tablet (6.25 mg) by mouth Daily 30 msvaln1405/23/2024 06/22/2024 ActiveamLODIPine 5 mg oral tablet (20 sources)Dihydropyridine Calcium Channel BlockerStart: 57-78-9427jrgq 2 tablets by mouth in the morningamLODIPine (NORVASC) 5 mg tablet Take 2 tablets (10 mg total) by mouth in the morning. 12/02/2024 ActiveStart: 72-51-7439Ccuow: 36-77-9371Lbqrn: 11-30-2024 End: 97-09-6896vusn 5 mg by mouth every twelve hoursStart: 02-21-2024 End: 77-52-0126gyic 1 tablet by mouth once dailyamLODIPine (Norvasc) 10 MG tablet Indications: Coronary artery disease due to lipid rich plaque TAKE 1 TABLET BY MOUTH EVERY DAY 90 tablet 3 02/21/2024 08/28/2024 DiscontinuedStart: 08-93-3011byoh 10 mg by mouth once dailyAmlodipine Active 10 MG PO Daily June 24, 2021 4:16amaspirin 81 mg oral tablet (20 sources)Platelet Aggregation Inhibitor, Nonsteroidal Anti-inflammatory Drug Start: 48-18-1979lxku 81 mg by mouth once dailyAspirin Active 81 MG PO Daily June 24, 2021 4:16amtake 1 tablet by mouth in the morningaspirin 81 mg Take 1 tablet (81 mg total) by mouth in the morning. Activeaspirin 81 MG chewable tablet Chew 81 mg in the morning. Activebaclofen 10 mg oral tablet (1 source)gamma-Aminobutyric Acid-ergic Agonisttake 1 tablet by mouth three times dailybaclofen (LIORESAL) 10 mg tablet Take 1 tablet (10 mg total) by mouth 3 (three) times a day. ActiveBlood Glucose Monitoring Suppl (ONE TOUCH ULTRA 2) w/Device kit (17 sources)Start: 31-89-8115Yxurf Glucose Monitoring Suppl (ONE TOUCH ULTRA 2) w/Device kit Indications: Type 2 diabetes mellitus with hyperglycemia, without long-term current use of insulin ([facility]) USE DIRECTED 1 kit 05/26/2024 Active Start: 05-51-9713Yzigs Glucose Monitoring Suppl (ONE TOUCH ULTRA 2) w/Device kit Indications: Type 2 diabetes mellitus with hyperglycemia, without long-term current use of insulin ([facility]) USE DIRECTED 1 kit 05/26/2024 ActiveStart: 92-75-7769Avbhd Glucose Monitoring Suppl (ONE TOUCH ULTRA 2) w/Device kit Indications: Type 2 diabetes mellitus with hyperglycemia, without long-term current use of insulin ([facility]) 1 each Daily 1 kit 03/20/2024 Activecalcium citrate 950 mg oral tablet (5 sources)Start: 74-35-9734osawaer citrate (CALCITRATE) 200 mg (950 mg) tablet Take 2 tablets (400 mg total) by mouth in the morning and 2 tablets (400 mg total) at noon and 2 tablets (400 mg total) in the evening. Take with meals. 12/01/2024 ActiveStart: 59-97-4512Xmhqk: 11-27-2024 End: 84-36-6905aorvnxos 300 mg oral capsule (1 source)Cephalosporin AntibacterialStart: 03-11-2024 End: 18-26-0536yego 1 capsule by mouth in the morningcefdinir (Omnicef) 300 MG capsule Indications: Upper respiratory tract infection, unspecified type Take 1 capsule (300 mg) by mouth in the morning and 1 capsule (300 mg) before bedtime. Do all this for 10 days. 20 capsule 03/11/2024 03/21/2024 Activecefuroxime 250 mg oral tablet (4 sources)Cephalosporin AntibacterialStart: 11-30-2024 End: 50-89-5586Xlssn: 11-28-2024 End: 21-18-9466kirlfbmcztndlio 0.05 mg oral tablet (20 sources)Vitamin DStart: 14-80-7401Wixtm: 28-73-4845Btqis: 11-27-2024 End: 19-48-5055wxrk 1 tablet by mouth in the morningcholecalciferol, vitamin D3, 2,000 units tablet Take 1 tablet (2,000 Units total) by mouth in the morning. 12/02/2024 ActiveStart: 00-25-3053qozf 1 tablet by mouth once daily cholecalciferol (Vitamin D3) 25 MCG (1000 UT) tablet Indications: Vitamin D deficiency, unspecified, Vitamin D deficiency TAKE 1 TABLET BY MOUTH EVERY DAY 90 tablet 3 03/24/2024 ActiveStart: 04-66-8211xbae 1 tablet by mouth once daily cholecalciferol (Vitamin D3) 25 MCG (1000 UT) tablet Indications: Vitamin D deficiency, unspecified, Vitamin D deficiency TAKE 1 TABLET BY MOUTH EVERY DAY 90 tablet 3 03/20/[address] Boss (FreeStyle Violet 3 [place]) device (13 sources)Start: 52-68-4334Ghpgqngfka Glucose Road Boss (FreeStyle Violet 3 [place]) device Indications: Type 2 diabetes mellituswith hyperglycemia, without long-term current use of insulin ([facility]) 1 each continuously 1 each 05/27/2024 ActiveStart: 41-79-5252Lifyfowpfy Glucose Road Boss (FreeStyle Violet 3 [place]) device Indications: Type 2 diabetes mellituswith hyperglycemia, without long- term current use of insulin ([facility]) 1 each continuously 1 each 05/27/2024 ActiveContinuous Glucose Sensor (FreeStyle Violet 3 Sensor) misc (13 sources)Start: 68-10-3175Talktwwdyd Glucose Sensor (FreeStyle Violet 3 Sensor) [facility] [place] Indications: Type 2 diabetes mellitus with hyperglycemia, without long-term current use of insulin ([facility]) 1 each continuously 2 each 11 05/27/2024 ActiveStart: 55-17-7330Nrirxuqnsr Glucose Sensor (FreeStyle Violet 3 Sensor) [facility] [place] Indications: Type 2 diabetes mellitus with hyperglycemia, without long-term current use of insulin ([facility]) 1 each continuously 2 each 11 05/27/2024 Active docusate sodium 50 mg / sennosides, nursing home 8.6 mg oral tablet (5 sources)Start: 66-92-7382cabv 2 tablets by mouth once dailysennosides- docusate sodium (SENOKOT-S) 8.6-50 mg Take 2 tablets by mouth nightly. 12/01/2024 ActiveStart: 11-26-2024 End: 73-40-1015vxuvwfbawohcf 25 mg oral tablet (20 sources)Sodium-Glucose Cotransporter 2 InhibitorStart: 05-23-2024 End: 95-30-8636cegw 1 tablet by mouth once dailyempagliflozin (Jardiance) 25 MG Indications: Type 2 diabetes mellitus with hyperglycemia, without long-term current use of insulin ([facility]) TAKE 1 TABLET BY MOUTH EVERY DAY 30 tablet 5 06/03/2024 Activefamotidine 40 mg oral tablet (20 sources)Histamine-2 Receptor AntagonistStart: 42-07-0545yptj 1 tablet by mouth once dailyfamotidine (Pepcid) 40 MG tablet Indications: Gastroesophageal reflux disease without esophagitis TAKE 1 TABLET BY MOUTH EVERY DAY 90 tablet 3 05/07/2024 Activefluticasone propionate 0.05 mg/actuat metered dose nasal spray (20 sources)CorticosteroidStart: 77-65-3312cgao 2 spray(s) nasal route once dailyfluticasone (Flonase) 50 MCG/ACT nasal spray Indications: Upper respiratory tract infection, unspecified type Administer 2 sprays into each nostril Daily Shake gently. Before first use, prime pump. After use, clean tip and replace cap. 05/27/2024 ActiveStart: 24-82-1964dbhx 1 spray(s) nasal route once daily fluticasone (Flonase) 50 MCG/ACT nasal spray Indications: Upper respiratory tract infection, unspecified type SPRAY 1 SPRAY INTO EACH NOSTRIL DAILY 16 mL 2 10/31/2022 ActiveStart: 29-42-3436Mpjmkxvxyec Furoate Active 2 INH INHALATION Daily June 24, 2021 4:16amtake 2 spray(s) nasal route once as needed for rhinitisfluticasone propionate (FLONASE) 50 mcg/actuation nasal spray Administer 2 sprays into each nostrilas needed for rhinitis (both nostrils q24 prn). Activefurosemide 20 mg oral tablet (20 sources)Loop DiureticStart: 11-47-2190sxhx 1 tablet by mouth once daily furosemide (Lasix) 20 MG tablet Indications: Chronic diastolic heart failure (HCC) Take 1 tablet (20 mg) by mouth Daily 90 tablet 3 11/12/2023 ActiveStart: 06-24-2021 End: 53-30-5991dcmr 40 mg by mouth once dailyFurosemide Active 40 MG PO Daily June 24, 2021 4:16am1 ml heparin sodium, porcine 5000 unt/ml injection (5 sources)Unfractionated Heparin, Anti-coagulantStart: 11-28-2024 End: 65-92-9435oezdvr 1 mL by subcutaneous injection every eight hoursheparin sodium,porcine (heparin, porcine,) 5,000 unit/mL injection Inject 1 mL (5,000 Units total) under the skin every 8 (eight) hours for 28 days. 12/01/2024 12/29/2024 ActivehydrALAZINE hydrochloride 100 mg oral tablet (20 sources)Arteriolar VasodilatorStart: 31-66-2897bhvdBEXGZGN (APRESOLINE) 100 mg tablet Take 0.5 tablets (50 mg total) by mouth at noon and 0.5 tablets (50 mg total) before bedtime. 12/01/2024 ActiveStart: 11-30-2024 End: 61-45-7855Seoqf: 11-26-2024 End: 59-55-4841Imqty: 02-21-2024 End: 15-41-9076Qqqbt: 60-09-9026ccnk 50 mg by mouth twice dailyHydralazine Active 50 MG PO Twice daily June 24, 2021 4:16amisopropyl alcohol 0.7 ml/ml medicated pad (1 source)Start: 62-78-2785Zyshjvh Swabs (Alcohol Prep) pads Indications: Type 2 diabetes mellitus with hyperglycemia, withoutlong-term current use of insulin (HCC) Use as directed 100 each 3 09/03/2024 Active3 ml liraglutide 6 mg/ml pen injector (1 source)GLP-1 Receptor AgonistStart: 02-45-9846dcjrmi 0.6 mg by subcutaneous injection once daily, then inject 1.2 mg by subcutaneous injection once daily Liraglutide (Victoza 3-Dae) 0.6 mg/0.1 mL (18 mg/3 mL) pen injector Active 1.2 MG SUBCUT Daily 6 30May 2021 10:54am 0.6mg sq daily x 1 week then 1.2 mg sq daily thereafter if well toleratedlosartan potassium 50 mg oral tablet (1 source)Angiotensin 2 Receptor BlockerStart: 60-99-6754maea 50 mg by mouth once dailyLosartan Active 50 MG PO Daily June 24, 2021 4:16am24 hr metFORMIN hydrochloride 500 mg extended release oral tablet (1 source)BiguanideStart: 58-39-6103ofus 500 mg by mouth twice dailyMetformin Active 500 MG PO Twice daily June 24, 2021 4:16ammethocarbamol 750 mg oral tablet (17 sources)Muscle RelaxantStart: 67-79-0314rpeqxlclzthvs (Robaxin) 750 MG tablet Take 750 mg by mouth in the morning and 750 mg at noon and 750 mg in the evening and 750 mg before bedtime. 12/05/2021 Activemetoclopramide 5 mg oral tablet (20 sources)Dopamine-2 Receptor AntagonistStart: 10-29-2023 End: 85-55-8790szux 1 tablet by mouth four times dailymetoclopramide (Reglan) 5 MG tablet Indications: Early satiety TAKE 1 TABLET BY MOUTH FOUR TIMES A DAY 120 tablet 5 10/29/2023 Activenaloxone (NARCAN) 4 mg/actuation spray,non-aerosol nasal spray (2 sources)Start: 36-97-3366qvhbngaj (NARCAN) 4 mg/actuation spray,non-aerosol nasal spray Administer 1 spray (4 mg total) intoalternating nostrils as needed for opioid reversal. 12/01/2024 Activenystatin 100 unt/mg topical powder (20 sources)Polyene AntifungalStart: 20-64-8280mmfiuywe (Mycostatin) 566388 UNIT/GM powder Indications: Skin candidiasis Apply 1 application topically in the morning and 1 application in the evening and 1 application before bedtime. 60 g 3 11/12/2023 Active End: 86-95-7001kuvucaer (Mycostatin) 115585 UNIT/GM powder Apply 100 application topically in the morning and 100 application in the evening and 100 application before bedtime. 11/12/2023 Discontinued (Reorder)oxyCODONE hydrochloride 5 mg oral tablet (4 sources)Opioid AgonistStart: 11-26-2024 End: 23-90-5296dchlgjkfpcvl 40 mg delayed release oral tablet (20 sources)Proton Pump InhibitorStart: 58-09-9161ceyj 1 tablet by mouth twice dailypantoprazole (ProtoNix) 40 MG EC tablet Indications: Gastroesophageal reflux disease without esophagitis TAKE 1 TABLET BY MOUTH TWICE A DAY 180 tablet 3 02/04/2024 Activesacubitril 24 mg / valsartan 26 mg oral tablet (16 sources)Angiotensin 2 Receptor BlockerStart: 05-23-2024 End: 41-00-2379eezf 24-26 mg by mouth at bedtimesacubitril-valsartan (Entresto) 24-26 MG tablet Indications: Chronic diastolic heart failure (HCC) TAKE 1 TABLET BY MOUTH IN THE MORNING AND BEFORE BEDTIME 60 tablet 5 06/03/2024 Active SITagliptin 25 mg oral tablet (20 sources)Dipeptidyl Peptidase 4 InhibitorStart: 76-93-6999woou 1 tablet by mouth once dailyJanuvia 25 MG tablet Indications: Type 2 diabetes mellitus with hyperglycemia (CMS/HCC) TAKE 1 TABLET BY MOUTH EVERY DAY 90 tablet 1 09/21/2023 Activesucralfate 1000 mg oral tablet (20 sources)Aluminum ComplexStart: 26-94-6558aqjs 1 tablet by mouth once daily at bedtimesucralfate (Carafate) 1 g tablet Indications: Gastro-esophageal reflux disease without esophagitis , Esophageal reflux TAKE 1 TABLET BY MOUTH EVERYDAY AT BEDTIME 90 tablet 3 06/03/2024 ActiveStart: 28-06-2354lmxv 1 tablet by mouth once daily at bedtimesucralfate (Carafate) 1 g tablet Indications: Gastro- esophageal reflux disease without esophagitis , Esophageal reflux TAKE 1 TABLET BY MOUTH EVERYDAY AT BEDTIME 90 tablet 3 05/11/2023 Activesulfamethoxazole 800 mg / trimethoprim 160 mg oral tablet (2 sources)Dihydrofolate Reductase Inhibitor Antibacterial, Sulfonamide AntimicrobialStart: 11-12-2023 End: 75-91-3455casm 1 tablet by mouth once in the morningsulfamethoxazole- trimethoprim (Bactrim DS) 800-160 MG per tablet Indications: Acute UTI Take 1 tablet by mouth in the morning and at noon for 7 days 14 tablet 11/12/2023 11/19/2023 Activetemazepam 7.5 mg oral capsule (20 sources)BenzodiazepineStart: 09-03-2024 End: 21-12-8036qaocdlilj (Restoril) 7.5 MG capsule Indications: Primary insomnia Take 1 capsule (7.5 mg) by mouth as needed at bedtime for sleep 30 capsule 09/03/2024 10/03/2024 ActiveStart: 09-20-2023 End: 39-11-4198uzsc 1 capsule by mouth once daily at bedtimetemazepam (Restoril) 15 MG capsule Indications: Primary insomnia TAKE 1 CAPSULE BY MOUTH EVERYDAY AT BEDTIME 30 capsule 1 03/26/2024 09/03/2024 Discontinued (Reorder)Start: 08-89-2528teyc 30 mg by mouth at bedtimeTemazepam Active 30 MG PO Bedtime June 24, 2021 4:16amticagrelor 90 mg oral tablet (1 source)Start: 76-65-9840rijt 1 tablet by mouth twice dailyTicagrelor (Brilinta) 90 mg Tablet Active 90 MG PO Twice daily 180 90 June 24, 2021 4:10pm zinc oxide 0.3 mg/mg topical ointment (2 sources)Start: 23-97-1493Gvek Oxide (Pinxav) 30 % ointment Indications: Skin breakdown Apply 1 Application topically if needed (Skin breakdown) 113.4 g 2 03/20/2024 Active (2 sources)Start: 12-01-2024 Completed/Discontinued Medications MedicationDrug Class(es)DatesSig (Normalized)Sig (Original)ALPRAZolam 0.25 mg oral tablet (20 sources)BenzodiazepineStart: 11-26-2024 End: 16-17-2355Oaafr: 05-78-3013nkcz 1 tablet by mouth three times daily as neededALPRAZolam (Xanax) 0.5 MG tablet Indications: Generalized anxiety disorder (CMS/HCC) TAKE 1 TABLET BY MOUTH THREE TIMES A DAY NEEDED 90 tablet 10/04/2023 ActiveStart: 50-24-5482fole 0.5 mg by mouth three times daily Alprazolam Active 0.5 MG PO Three times daily June 24, 2021 4:16amaprepitant 40 mg oral capsule (1 source)Substance P/Neurokinin-1 Receptor AntagonistStart: 11-27-2024 End: 93-04-7936qswtzpizlkvb 40 mg oral tablet (20 sources)HMG-CoA Reductase InhibitorStart: 11-27-2024 End: 09-92-7740Bmdzk: 48-72-1414ssmk 1 tablet by mouth once daily at bedtime atorvastatin (Lipitor) 80 MG tablet Indications: Dyslipidemia TAKE 1 TABLET BY MOUTH EVERYDAY AT BEDTIME 90 tablet 3 06/03/2024 ActiveStart: 06-24-2021 End: 06-90-5853yfxg 40 mg by mouth at bedtimeAtorvastatin Discontinued 40 MG PO Bedtime June 24, 2021 4:16am June 25, 2021 11:27am24 hr buPROPion hydrochloride 150 mg extended release oral tablet (20 sources)AminoketoneStart: 06-24-2021 End: 36-92-1116cyzb 1 tablet by mouth every twenty-four hours in the morning buPROPion XL (WELLBUTRIN XL) 150 mg 24 hr tablet Take 1 tablet (150 mg total) by mouth in the morning. Activecarvedilol 25 mg oral tablet (20 sources)alpha-Adrenergic Tung, beta-Adrenergic BlockerStart: 12-01-2024 End: 63-01-1742Okshx: 11-27-2024 End: 29-81-4437Lsdrk: 17-41-3121jxrh 1 tablet by mouth in the morningcarvedilol (Coreg) 25 MG tablet Indications: Benign essential hypertension Take 1 tablet (25 mg) bymouth in the morning and 1 tablet (25 mg) in the evening. Take with meals. 60 tablet 5 03/31/2024 ActiveStart: 38-64-0977bzsd 12.5 mg by mouth twice daily at mealtimeCarvedilol Active 12.5 MG PO Twice daily with meals 60 30 June 24, 2021 4:10pmceFAZolin (ANCEF) 2,000 mg in sodium chloride 0.9 % 50 mL IVPB W/ADAPTER (1 source)Start: 11-27-2024 End: 75-83-3041sqih 2000 mg intravenously every eight hoursclopidogrel 75 mg oral tablet (13 sources)P2Y12 Platelet InhibitorStart: 06-02-2022 End: 96-92-6575anec 1 tablet by mouth in the morningclopidogrel (Plavix) 75 MG tablet Take 1 tablet by mouth in the morning. 06/02/2022 02/29/[address] Glucose [address] Boss (Dexcom G7 Road Boss) device (9 sources)Start: 02-29-2024 End: 98-12-9541Pxytygsrog Glucose Road Boss (Dexcom G7 Road Boss) device Indications: Type 2 diabetes mellitus with hyperglycemia, without long-term current use of insulin ([facility]) 1 each continuously 1 each 02/29/2024 05/27/2024 DiscontinuedStart: 92-47-8211Jdgjsgprqa Glucose Road Boss (Dexcom G7 Road Boss) device Indications: Type 2 diabetes mellitus with hyperglycemia, without long-term current use of insulin ([facility]) 1 each continuously 1 each 02/29/2024 ActiveContinuous Glucose Sensor (Dexcom G7 Sensor) misc (9 sources)Start: 02-29-2024 End: 45-95-7525Uwweieulko Glucose Sensor (Dexcom G7 Sensor) misc Indications: Type 2 diabetes mellitus with hyperglycemia, without long-term current use of insulin ([facility]) 1 each continuously 1 each 11 DiscontinuedStart: 42-68-6923Skqqyzkfuc Glucose Sensor (Dexcom G7 Sensor) misc Indications: Type 2 diabetes mellitus with hyperglycemia, without long-term current use of insulin ([facility]) 1 each continuously 1 each 11 5Active ergocalciferol 1.25 mg oral capsule (1 source)Provitamin D2 CompoundStart: 11-28-2024 End: ml fentaNYL 0.05 mg/ml injection (2 sources)Opioid AgonistStart: 11-26-2024 End: 70-88-1965gcqpkIQYY 10 mg oral tablet (1 source)SulfonylureaStart: 06-24-2021 End: 37-26-7545skcg 10 mg by mouth once dailyGlipizide Discontinued 10 MG PO Daily June 24, 2021 4:16am June 25, 2021 11:27amglucagon (rdna) 1 mg injection (2 sources)Antihypoglycemic AgentStart: 11-26-2024 End: 08-09-7895324 ml glucose 50 mg/ml injection (6 sources)Start: 11-26-2024 End: 07-83-2182Fmmjo: 11-26-2024 End: 93-48-7295Sbhyc: 11-26-2024 End: .5 ml HYDROmorphone hydrochloride 1 mg/ml prefilled syringe (1 source)Opioid AgonistStart: 11-26-2024 End: 31-53-2778mbov 0.25 mg intravenously every two hours as needed3 ml insulin lispro 100 unt/ml pen injector (19 sources)Insulin AnalogStart: 11-26-2024 End: 74-89-5502Bxfuq: 05-23-2024 End: 37-53-6947ckvlwgz lispro (HumaLOG) 100 UNIT/ML injection Indications: Type 2 diabetes mellitus with hyperglycemia, without long-term current use of insulin (HCC) INJECT 2-10 UNITS UNDER THE SKIN IN THE MORNINGAND 2-10 UNITS AT NOON AND 2-10 UNITS IN THE EVENING. INJECT WITH MEALS. 151-200=2 UNITS, 387-593-3ZIWJY, 251-300=6 UNITS, 301-350=8 UNITS, 351-400=10 UNITS, OVER 400 CALL PROVIDER. 15 each 3 06/03/2024 Umrayb70 hr isosorbide mononitrate 30 mg extended release oral tablet (20 sources)Nitrate VasodilatorStart: 12-01-2024 End: 15-52-4363Yvbmi: 05-23-2024 End: 19-80-1950ulbr 1 tablet by mouth once dailyisosorbide mononitrate ER (Imdur) 30 MG 24 hr tablet Indications: Chronic diastolic heart failure (HCC) TAKE 1 TABLET BY MOUTH EVERY DAY *DO NOT CRUSH OR CHEW* 30 tablet 5 06/03/2024 Active4 ml labetalol hydrochloride 5 mg/ml cartridge (2 sources)beta-Adrenergic BlockerStart: 11-30-2024 End: 41-80-8023bfsmwkrkazn 10 mg oral tablet (20 sources)Leukotriene Receptor AntagonistStart: 06-24-2021 End: 96-51-5338newnbijzhugcs 0.4 mg sublingual tablet (20 sources)Nitrate VasodilatorStart: 07-85-2057Mahlfmozxldqw 0.4 MG Sublingual Tablet Sublingual DISSOLVE 1 TABLET UNDER TONGUE NEEDED CHEST PAIN. MAY REPEAT EVERY 5 MINUTES IF NEEDED, AFTER 3RD DOSE CALL 911 Quantity: 1 Refills: 3 Ordered: 21-Oct-2021 Zafar Bolivar DO Start : 21-Oct-2021 Active2 ml ondansetron 2 mg/ml injection (20 sources)Serotonin-3 Receptor AntagonistStart: 11-26-2024 End: 32-22-0833xplg 4 mg intravenously every four hours as needed for nausea Start: 70-96-9365hnnsyipukek ODT (Zofran-ODT) 4 MG disintegrating tablet Indications: Nausea DISSOLVE 1 TABLET ON THE TONGUE EVERY 6 HOURS NEEDED FOR NAUSEA/ VOMITING 56 tablet 2 02/21/2023 ActiveStart: 89-05-3310unme 4 mg by mouth every six hoursOndansetron Active 4 MG PO Q6H June 24, 2021 4:16am PARoxetine hydrochloride 20 mg oral tablet (20 sources)Serotonin Reuptake InhibitorStart: 11-30-2024 End: 16-54-2918Dkpet: 96-66-7869xsnn 1 tablet by mouth in the morningPARoxetine (PAXIL) 40 mg tablet Take 1 tablet (40 mg total) by mouth in the morning. 05/17/2024 ActiveStart: 70-05-6694syok 1 tablet by mouth once dailyPARoxetine (Paxil) 40 MG tablet Indications: Major depressive disorder, recurrent episode, mild (HCC) (CMS/HCC) TAKE 1 TABLET BY MOUTH EVERY DAY 90 tablet 3 11/08/2023 ActiveStart: 60-00-3446hsjv 40 mg by mouth once dailyParoxetine Hcl Active 40 MG PO Daily June 24, 2021 4:16ampolyethylene glycol 3350 22209 mg powder for oral solution (5 sources)Osmotic LaxativeStart: 11-29-2024 End: 60-95-0795775 ml sodium chloride 9 mg/ml prefilled syringe (2 sources)Start: 11-28-2024 End: 45-37-6545Qhvtl: 11-26-2024 End: 41-69-9978gzaqjqkkmm acid 650 mg oral tablet (1 source)Antifibrinolytic AgentStart: 11-27-2024 End: 11-27-2024 (1 source)Start: 11-30-2024 End: 12-01-2024 (1 source)Start: 11-28-2024 End: 11-28-2024 Problems Active Problems Problem ClassificationProblemDateDocumented DateEpisodic/ChronicAbdominal hernia (1 source)Diaphragmatic hernia without obstruction or gangrene; Translations: [DIAPH HERNIA W/O OBST/GANGRENE]Onset: 76-35-5860MztjmhrhNskgg and unspecified renal failure (1 source)Acute kidney failure, unspecified; Translations: [ACUTE KIDNEY FAILURE UNSPECIFIED]Onset: 75-82-6026BkioxmpdVtpzp myocardial infarction (2 sources)Myocardial infarction; Translations: [Non-ST elevation (NSTEMI) myocardial infarction]32-96-2616IqbjqgdLchdkde disorders (20 sources)Anxiety disorder, unspecified; Translations: [Generalized anxiety disorder]Onset: 751024-36-7489XyyncfdIrlwqwzvf infection; unspecified site (2 sources)Enterococcus as the cause of diseases classified elsewhere; Translations: [Klebsiella pneumoniae [K. pneumoniae] as the cause of diseases classified elsewhere]Onset: 81-29-8927InyivnwcPglhrtc kidney disease (20 sources)Chronic kidney disease; Translations: [Chronic kidney disease, unspecified]Onset: 618807-47-1203DleuateBxrezwn kidney disease (6 sources)Chronic kidney disease; Translations: [CHRONIC KIDNEY DISEASE STAGE 3B]Onset: 99-24-6020Plwjupcmoj heart failure; nonhypertensive (20 sources)Chronic diastolic (congestive) heart failure; Translations: [Chronic diastolic heart failure]Onset: 51-97-7422YlbcsycXyexcpzo atherosclerosis and other heart disease (20 sources)Coronary arteriosclerosis; Translations: [Atherosclerotic heart disease of teller coronary artery without angina pectoris]Onset: 06-24-2021 17-47-5501WyzszgjUroirfdd atherosclerosis and other heart disease (5 sources)Patient post percutaneous transluminal coronary angioplasty; Translations: [Percutaneous transluminal coronary angioplasty status]Onset: 37-93-1964MlwizpskSgadhbva mellitus with complications (20 sources)Type 2 diabetes mellitus with diabetic chronic kidney disease; Translations: [Type 2 diabetes mellitus with hyperglycemia]Onset: 12-01-2021 ChronicDiabetes mellitus without complication (11 sources)Diabetes mellitus; Translations: [Type 2 diabetes mellitus without complications]Onset: 177650-69-0919KpxkqnqUkyntgpac of lipid metabolism (20 sources)Pure hypercholesterolemia, unspecified; Translations: [Hyperlipidemia, unspecified]Onset: 762111-56-1434LeyfmvyN Codes: Fall (2 sources)FallOnset: 55-53-3671Bqxaprnrex disorders (20 sources)Gastroesophageal reflux disease; Translations: [Gastro-esophageal reflux disease without esophagitis]Onset: 318156-56-7194ZpqoenaGlqhvezbi hypertension (20 sources)Hypertensive disorder; Translations: [Essential (primary) hypertension]Onset: 974693-18-6323OpfeilsBsnbcvdl of neck of femur (hip) (11 sources)Fracture of unspecified part of neck of right femur, initial encounter for closed fracture; Translations: [Closed fracture of hip]Onset: 331208-62-3668OxjqhyjkNrmwixchtfaov symptoms and ill-defined conditions (20 sources)Overflow incontinence of urine; Translations: [Overflow incontinence]Onset: 281185-51-5757JacwcwjHfsytctcxtnxu symptoms and ill- defined conditions (5 sources)Urgency of urination; Translations: [Dysuria]Onset: 05-26-2022 EpisodicHypertension with complications and secondary hypertension (2 sources)Hypertensive heart and chronic kidney disease with heart failure and stage 1 through stage 4 chronic kidney disease, or unspecified chronic kidney disease; Translations: [Hypertensive heart disease with heart failure]Onset: 85-29-6362HhziokwIncaugrvqkbta mental health disorders (20 sources)Psychophysiologic insomnia; Translations: [Primary insomnia]Onset: 562862-71-9348YjfqralOfyj disorders (20 sources)Depressive disorder; Translations: [Depression]Onset: 09-01-2021 40-68-4969XdvynnmBsbecja (9 sources)Candidiasis of skin and nail; Translations: [Candidiasis of skin] Onset: 030445-34-5169KisdkeciYlniorcnbrg chest pain (1 source)Chest pain; Translations: [Chest pain, unspecified]EpisodicNutritional deficiencies (20 sources)Vitamin D deficiency, unspecified; Translations: [Vitamin D deficiency]Onset: 881979-64-8846StmcsdiTzbfsxgpa or stenosis of precerebral arteries (2 sources)Occlusion and stenosis of bilateral carotid arteries; Translations: [Occlusion and stenosis of bilateral carotid arteries]Onset: 43-49-2066Hjldvlq Osteoarthritis (20 sources)Primary gonarthrosis, bilateral; Translations: [Bilateral primary osteoarthritis of knee]Onset: 433205-22-7089YwwylpdUyyij acquired deformities (1 source)Other forms of scoliosis, lumbar region; Translations: [OTHER FORMS SCOLIOSIS LUMBAR REGION]Onset: 23-49-9372JcxddzjTxwwo aftercare (1 source)longterm (current) use of aspirin; Translations: [SENIOR LIVING CURRENT USE OF ASPIRIN]Onset: 79-17-4328IunlwkdyMwwmn and ill-defined cerebrovascular disease (20 sources)Cerebrovascular disease; Translations: [Cerebrovascular disease, unspecified]Onset: 860701-66-5278TyetyjmBzfes circulatory disease (1 source)Personal history of transient ischemic attack (TIA), and cerebral infarction without residual deficits; Translations: [PERS HX TIA AND CI NO RESID DEFICIT]Onset: 83-71-3211LghphfzuTlhqb connective tissue disease (1 source)History of repair of hip joint; Translations: [Presence of unspecified artificial hip joint]90-51-8001FpdykvjXjadw connective tissue disease (2 sources)History of hemiarthroplasty of right hip; Translations: [Presence of right artificial hip joint]Onset: 168377-19-3676TkarcmaWmerl connective tissue disease (1 source)Presence of unspecified artificial hip joint; Translations: [Presence of unspecified artificial hipjoint]Onset: 16-52-8000JswwckkDzxuq connective tissue disease (3 sources)Fibromyalgia; Translations: [Myalgia and myositis, unspecified]Onset: 11-55-9433NqsxzhgnZucif connective tissue disease (1 source)Repeated falls; Translations: [REPEATED FALLS]Onset: 05-18-2022 EpisodicOther diseases of veins and lymphatics (6 sources)Vascular insufficiency; Translations: [Venous insufficiency (chronic) (peripheral)]20-05-4972UrayqlymZlcjw gastrointestinal disorders (1 source)Other constipation; Translations: [OTHER CONSTIPATION]Onset: 77-30-2323WaijwognPeshc lower respiratory disease (1 source)Paroxysmal nocturnal dyspnea; Translations: [Dyspnea, unspecified] EpisodicOther nervous system disorders (1 source)Cerebral cysts; Translations: [CEREBRAL CYSTS]Onset: 87-89-9433Pclgexh Other nervous system disorders (1 source)Other chronic pain; Translations: [OTHER CHRONIC PAIN]Onset: 33-80-5940LgnhcsjBgrte nervous system disorders (20 sources)Arachnoid cyst; Translations: [Cerebral cysts]Onset: 03-13-2023 99-53-9943DzkllxuOthzq nervous system disorders (1 source)Unsteadiness on feet; Translations: [UNSTEADINESS ON FEET]Onset: 52-95-8089IrygdskyQzlqx nervous system disorders (1 source)Other abnormalities of gait and mobility; Translations: [OTHER ABNORMALITIES GAIT AND MOBILITY]Onset: 62-09-9364BgfrsxprElvxr non-traumatic joint disorders (1 source)Polyarthritis, unspecified; Translations: [POLYARTHRITIS UNSPECIFIED] Onset: 24-94-9624NoktmgtHnrdb nutritional; endocrine; and metabolic disorders (1 source)Morbid (severe) obesity due to excess calories; Translations: [MORBID SEVERE OBES D/T EXCESS SVETLANA]Onset: 66-57-8326DnamkjjLpggf nutritional; endocrine; and metabolic disorders (1 source)Body mass index (BMI) 32.0-32.9, adult; Translations: [BODY MASS INDEX BMI 32.0-32.9 ADULT]Onset: 60-86-8744VlggpyxLzibj nutritional; endocrine; and metabolic disorders (12 sources)Body mass index 30+ - obesity; Translations: [Obesity, unspecified] Onset: 410018-29-4646IlrvtdkZxnex nutritional; endocrine; and metabolic disorders (20 sources)Obesity caused by energy imbalance; Translations: [Class 1 obesity due to excess calories with serious comorbidity and body mass index (BMI) of 33.0 to 33.9 in adult]Onset: 362697-43-9438GfyhxwcMeayb nutritional; endocrine; and metabolic disorders (1 source)Body mass index (BMI) 33.0-33.9, adult; Translations: [Body mass index (BMI) 33.0-33.9, adult]Onset: 03-94-9218HojrsdpFesfy upper respiratory infections (2 sources)Upper respiratory infection; Translations: [Acute upper respiratory infection, unspecified]49-87-7343MmnrgcwtUqcuoockzxtk fracture (2 sources)Pathological fracture due to osteoporosis; Translations: [Age-related osteoporosis with current pathological fracture, unspecified site, subsequent encounter for fracture with routine healing]Onset: 579733-04-8605Kfltwwty Residual codes; unclassified (1 source)Acquired absence of other specified parts of digestive tract; Translations: [ACQ ABSENCE OTH PART DIGESTV TRACT]Onset: 28-26-1118Bzgseizj Residual codes; unclassified (1 source)Acquired absence of both cervix and uterus; Translations: [ACQUIRED ABSENCE BOTH CERVIX AND UTERUS]Onset: 72-73-1007BkkkgqonMksvpkvhzjd; intervertebral disc disorders; other back problems (1 source)Spondylosis without myelopathy or radiculopathy, cervical region; Translations: [SPONDYLS W/O MYELO-/RADICULOP CERV]Onset: 99-27-9485Brojtsg Spondylosis; intervertebral disc disorders; other back problems (4 sources)Dorsalgia, unspecified; Translations: [DORSALGIA UNSPECIFIED]Onset: 65-93-6362KiycsxfcJeupogfzjlqp (1 source)I21.4 - Non-ST elevation (NSTEMI) myocardial infarction; Translations: [I21.4 - Non-ST elevation (NSTEMI) myocardial infarction]Onset: 06-24-2021 Unclassified (1 source)CHRN KIDNEY DISEASE STG 3 UNSP; Translations: [CHRN KIDNEY DISEASE STG 3 UNSP]Onset: 38-16-7582Qcqupklffdbf (1 source)ACUTE CANDIDIASIS VULVA AND VAGINA; Translations: [ACUTE CANDIDIASIS VULVA AND VAGINA]Onset: 00-50-5922Exmrtzvelhrc (1 source)CONTACT W/AND (SUSP) EXPOS COVID-19; Translations: [CONTACT W/AND (SUSP) EXPOS COVID-19]Onset: 84-49-5411Bnphvahscmcy (1 source)EMSOnset: 19-50-2539Emazogqiwijt (1 source)Post-opOnset: 16-58-1056Myfgtiospjda (1 source)79 [facility] Past or Other Problems Problem ClassificationProblemDateDocumented DateEpisodic/ChronicAbdominal pain (4 sources)Unspecified abdominal pain; Translations: [UNSPECIFIED ABDOMINAL PAIN]Onset: 17-13-4590PiqfwhjcEblbvcayzd and other anemia (8 sources)Iron deficiency anemia; Translations: [Iron deficiency anemia, unspecified]Onset: 593983-74-1122NwoqmtkuFwyhb and electrolyte disorders (20 sources)Dehydration; Translations: [Hypokalemia]Onset: 659698-68-9515 EpisodicMalaise and fatigue (10 sources)Weakness; Translations: [Asthenia]Onset: 80-65-7687YronycfnWsav disorders (19 sources)Mood disorders; Translations: [F32.A - Depression, unspecified] Onset: 05-27-2024 Resolved: Nausea and vomiting (8 sources)Nausea with vomiting, unspecified; Translations: [Nausea]Onset: 21-60-5818ZvkxwxsqIkmqq aftercare (2 sources)Other oysterman (current) drug therapy; Translations: [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 CURRENT DRUG THERAPY]Onset: 19-69-1787OffrvhxzMexjw aftercare (1 source)longterm (current) use of oral hypoglycemic drugs; Translations: [SENIOR LIVING USE ORAL HYPOGLYCEMIC DX]Onset: 50-76-2218WylarpahEtdeo aftercare (20 sources)Long-term current use of drug therapy; Translations: [Other oysterman (current) drug therapy]Onset: 437670-34-4934EdbdyaxdTauno aftercare (1 source)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; Translations: [longterm (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]Onset: 85-52-9538QcphqnnxYpoww circulatory disease (8 sources)History of cerebrovascular disease; Translations: [Personal history of transient ischemic attack (TIA), and cerebral infarction without residual deficits]Onset: 656268-43-0281HpjoixveEioih connective tissue disease (20 sources)Fibromyalgia; Translations: [Fibromyalgia]Onset: 03-13-2023 48-62-3751TbyxxrojAgdth fractures (11 sources)Fracture of lumbar spine; Translations: [Other fracture of unspecified lumbar vertebra, subsequent encounter for fracture with routine healing]Onset: 772528-68-1848DugtycjvQoiyc gastrointestinal disorders (1 source)Diarrhea, unspecified; Translations: [DIARRHEA UNSPECIFIED]Onset: 27-26-6575MfevzcaaFukxr gastrointestinal disorders (20 sources)Chronic constipation; Translations: [Other constipation]Onset: 741113-79-9747HgrcvpjtUjiti injuries and conditions due to external causes (6 sources)History of fall; Translations: [History of falling]Onset: 05-14-2024 93-89-1143IdipchcvSxsgy lower respiratory disease (1 source)Personal history of pneumonia (recurrent); Translations: [PERSONAL HX OF PNEUMONIA RECURRENT]Onset: 40-14-1319EmxnuyprPodlw non-traumatic joint disorders (20 sources)Pain in elbow; Translations: [Pain in left elbow]Onset: 02-29-2024 35-04-5747OdcezhbqVtyhp screening for suspected conditions (not mental disorders or infectious disease) (1 source)Abnormal results of thyroid function studies; Translations: [ABNORMAL RESULTS THR FUNCTION STDY]Onset: 51-79-8520SvyflehhIcdqxuofo (except that caused by tuberculosis or sexually transmitted disease) (6 sources)Pneumonia; Translations: [Pneumonia, unspecified organism]Onset: 723951-94-1870WphvydtqWjujfdzx codes; unclassified (4 sources)Early satiety; Translations: [EARLY SATIETY]Onset: 30-72-4856Knvxcxnn Urinary tract infections (20 sources)Urinary tract infection, site not specified; Translations: [Acute urinary tract infection]Onset: 08-18-2021 Resolved: 306170-74-1038Gtlpvcrw Results Test NameValueInterpretationReference RangeFacilityXR HIP RT 2-3 VIEWS W OR WO PELVISon 79-11-2803ZK HIP RT 2-3 VIEWS W OR WO PELVISXR HIP RT 2-3 VIEWS W OR WO PELVIS EXAM: XR HIP RT 2-3 VIEWS W [...] by Adolfo Jessica MD on 12/10/2024 6:16 PMNormalPike Community Hospital BEDSIDE GLUCOSEon 55-30-8138Zkpdfec [Mass/Vol]280 mg/rGGnrj20-16KdlYpahppPike Community HospitalComment on above:Performed By: #### B12 #### [facility] ([facility]) [address] [place] [address] VIRGlucose [Mass/Vol]200 mg/tFUnfx74-89HshPcmtoqPike Community HospitalComment on above:Performed By: #### B12 #### [facility] ([facility]) [address] [place] [address] VIRBedside Glucose *Place/Obtain serum glucose if >500 per glucometer.on 16-41-8829Uyjigcw [Mass/Vol]280 mg/gXEzbl41 - 99 mg/dLHighland District HospitalInterpretation and review of laboratory resultsAbnoThomas Jefferson University HospitalGlucose [Mass/Vol]200 mg/oFNact15 - 99 mg/dL [facility] HospitalInterpretation and review of laboratory resultsAbnormal [facility] HospitalCBC WITH AUTO DIFFERENTIALon [id number] ABSOLUTE COUNT (10*3/UL) BY AUTOMATED COUNT0.0 10*3/uLNormal 0.0-0.2Pro[facility] HospitalComment on above:Performed By: #### B12 #### [facility] ([facility]) [address] [place] [address] VIRBASOPHILS RELATIVE PERCENT BY AUTOMATED COUNT0.6 %Normal ProMhighlands medical centera Parlin HospitalComment on above:Performed By: #### B12 #### [facility] ([facility]) [address] [place] [address] VIRCELLAVISION DIFFERENTIAL TYPEAUTOMATED DIFFERENTIALNormal ProMhighlands medical centera Parlin HospitalComment on above:Performed By: #### B12 #### [facility] ([facility]) [address] [place] [address] VIREosinophils (Bld) [#/Vol]0.4 10*3/uLNormal0.0-0.4ProMedica Parlin HospitalComment on above:Performed By: #### B12 #### [facility] ([facility]) [address] [place] [address] VIREOSINOPHILS RELATIVE PERCENT BY AUTOMATED COUNT6.9 %Normal [facility] HospitalComment on above:Performed By: #### B12 #### [facility] ([facility]) [address] [place] [address] VIRErythrocyte distribution width (RBC) [Ratio]12.4 %Normal 11.5-15[facility] HospitalComment on above:Performed By: #### B12 #### [facility] ([facility]) [address] [place] [address] VIRHematocrit (Bld) [Volume fraction]23.1 %Bzb56-78AtxTssuns [place] HospitalComment on above:Performed By: #### B12 #### [facility] ([facility]) [address] [place] [address] VIRHemoglobin (Bld) [Mass/Vol]7.9 g/dLLow11.7-15.5[facility] [place] HospitalComment on above:Performed By: #### B12 #### [facility] ([facility]) [address] [place] [address] VIRLYMPHOCYTES ABSOLUTE COUNT (10*3/UL) BY AUTOMATED COUNT0.7 10*3/uLLow1.0-3.5[facility] [place] HospitalComment on above:Performed By: #### B12 #### [facility] ([facility]) [address] [place] [address] VIRLYMPHOCYTES RELATIVE PERCENT BY AUTOMATED COUNT12.6 %Normal [facility] [place] HospitalComment on above:Performed By: #### B12 #### [facility] ([facility]) [address] [place] [address] VIRMCH (RBC) [Entitic mass]32.9 pmMcyyay62-99KiyPxdfta [place] HospitalComment on above:Performed By: #### B12 #### [facility] ([facility]) [address] [place] [address] VIRMCHC (RBC) [Mass/Vol]34.0 g/eETnzqse72-93JprBhvmon [place] HospitalComment on above:Performed By: #### B12 #### [facility] ([facility]) [address] [place] [address] VIRMCV (RBC) [Entitic vol]97 wCLayitk01-145KaaFoxaur [place] HospitalComment on above:Performed By: #### B12 #### [facility] ([facility]) [address] [place] [address] VIRMONOCYTES ABSOLUTE COUNT (10*3/UL) BY AUTOMATED COUNT0.7 10*3/uLNormal0.0-0.9[facility] [place] HospitalComment on above:Performed By: #### B12 #### [facility] ([facility]) [address] [place] [address] VIRMONOCYTES RELATIVE PERCENT BY AUTOMATED COUNT12.2 %Normal [facility] [place] HospitalComment on above:Performed By: #### B12 #### [facility] ([facility]) [address] [place] [address] VIRNEUTROPHILS ABSOLUTE COUNT BY AUTOMATED COUNT4.0 10*3/uL Normal1.5-6.6ProPike Community HospitalComment on above:Performed By: #### B12 #### [facility] ([facility]) [address] [place] [address] VIRNEUTROPHILS RELATIVE PERCENT BY AUTOMATED COUNT67.7 %Normal [facility]MMc[facility] Hospital HospitalComment on above:Performed By: #### B12 #### [facility] ([facility]) [address] [place] [address] VIRPlatelet mean volume (Bld) [Entitic vol]9.2 fLNormal7-12 [facility] HospitalComment on above:Performed By: #### B12 #### [facility] ([facility]) [address] [place] [address] VIRPlatelets (Bld) [#/Vol]143 10*3/cENlt555-239RozFarbuu [place] HospitalComment on above:Performed By: #### B12 #### [facility] ([facility]) [address] [place] [address] VIRRBC COUNT2.39 X10E12/LLow3.8-5.2POhio Valley Hospital Comment on above:Performed By: #### B12 #### [facility] ([facility]) [address] [place] [address] VIRWBC (Bld) [#/Vol]5.9 10*3/uLNormal4-11ProUniversity [facility] HospitalComment on above:Performed By: #### B12 #### [facility] ([facility]) [address] [place] [address] VIRCBC auto differentialon [id number] (Bld) [#/Vol]0 10*3/uL0.0 - 0.2 10*3/uLHighland District HospitalBasophils/100 WBC (Bld)0.6 % [facility] HospitalDifferential cell count method Nom (Bld)AUTOMATED DIFFERENTIALHighland District HospitalEosinophils (Bld) [#/Vol]0.4 10*3/uL0.0 - 0.4 10*3/uLHighland District HospitalEosinophils/100 WBC (Bld)6.9 %[facility] HospitalErythrocyte distribution width (RBC) [Ratio]12.4 %11.5 - 15 %[facility] HospitalHematocrit (Bld) [Volume fraction]23.1 %Low35 - 47 %[facility] HospitalHemoglobin (Bld) [Mass/Vol]7.9 g/dLLow11.7 - 15.5 g/dLHighland District HospitalInterpretation and review of laboratory resultsAbnormalHighland District HospitalLymphocytes (Bld) [#/Vol]0.7 10*3/uLLow1.0 - 3.5 10*3/uLHighland District HospitalLymphocytes/100 WBC (Bld)12.6 %[facility] HospitalMCH (RBC) [Entitic mass]32.9 pg27 - 34 [facility] CenterMCHC (RBC) [Mass/Vol]34 g/dL32 - 36 g/dLHighland District HospitalMCV (RBC) [Entitic vol]97 fL80 - 100 fL [facility] HospitalMonocytes (Bld) [#/Vol]0.7 10*3/uL0.0 - 0.9 10*3/uL [facility] HospitalMonocytes/100 WBC (Bld)12.2 %[facility] Neutrophils (Bld) [#/Vol]4 10*3/uL1.5 - 6.6 10*3/[facility] Neutrophils/100 WBC (Bld)67.7 %[facility] HospitalPlatelet mean volume (Bld) [Entitic vol]9.2 fL7 - 12 [facility]onde[facility] HealthPlatelets (Bld) [#/Vol]143 10*3/uLProvidence HospitalRBC (Bld) [#/Vol]2.39 10*6/uLLowHighland District HospitalWBC LM Ql (Sput)5.9[facility] COMPREHENSIVE METABOLIC PANELon [id number] [Mass/Vol]3.0 g/dLLow3.2-5.3 [facility] [place] HospitalComment on above:Performed By: #### B12 #### [facility] ([facility]) [address] [place] [address] VIRALP [Catalytic activity/Vol]71 U/IIjkjfs47-173AkhYuktbk [place] HospitalComment on above:Performed By: #### B12 #### [facility] ([facility]) [address] [place] [address] VIRALT [Catalytic activity/Vol]12 U/LNormal<=31[facility] [place] HospitalComment on above:Performed By: #### B12 #### [facility] ([facility]) [address] [place] [address] VIRAnion gap [Moles/Vol]8 mmol/LNormal5-15[facility] [place] HospitalComment on above:Performed By: #### B12 #### [facility] ([facility]) [address] [place] [address] VIRAST [Catalytic activity/Vol]14 U/LNormal<=41[facility] [place] HospitalComment on above:Performed By: #### B12 #### [facility] ([facility]) [address] [place] [address] VIRBilirubin [Mass/Vol]0.5 mg/dLNormal0.3-1.2[facility] [place] HospitalComment on above:Performed By: #### B12 #### [facility] ([facility]) [address] [place] [address] VIRCalcium [Mass/Vol]9.4 mg/dLNormal8.5-10.5[facility] [place] HospitalComment on above:Performed By: #### B12 #### [facility] ([facility]) [address] [place] [address] VIRChloride [Moles/Vol]103 mmol/YDdspss79-087VpqGwyyfy [place] HospitalComment on above:Performed By: #### B12 #### [facility] ([facility]) [address] [place] [address] VIRCO2 [Moles/Vol]29 mmol/YEkftwj29-69RckXcorfd [facility] Comment on above:Performed By: #### B12 #### [facility] ([facility]) [address] [place] [address] VIRCreatinine [Mass/Vol]1.80 mg/dLHigh0.40-1.00ProPike Community HospitalComment on above:Result Comment: METHOD TRACEABLE TO IDMS STANDARD Performed By: #### B12 #### [facility] ([facility]) [address] [place] [address] VIRGFR/1.73 sq M.predicted among non-blacks MDRD (S/P/Bld) [Vol rate/Area]29 mL/min/{1.73_m2}Low>=60ProPike Community HospitalComment on above: Result Comment: Reported eGFR is based on the CKD-EPI 2020 equation that does not use a race coefficient.Performed By: #### B12 #### [facility] ([facility]) [address] [place] [address] VIRGlucose [Mass/Vol]207 mg/lRHbem93-03UdcVyeyed [place] HospitalComment on above:Performed By: #### B12 #### [facility] ([facility]) [address] [place] [address] VIRPotassium [Moles/Vol]4.6 mmol/LNormal3.5-5.0ProPike Community HospitalComment on above:Performed By: #### B12 #### [facility] ([facility]) [address] [place] [address] VIRProtein [Mass/Vol]5.4 g/dLLow6.0-8.0ProPike Community HospitalComment on above:Performed By: #### B12 #### [facility] ([facility]) [address] [place] [address] VIRSodium [Moles/Vol]140 mmol/GZienri872-755LgwDqcuxp [place] HospitalComment on above:Performed By: #### B12 #### [facility] ([facility]) [address] [place] [address] VIRUrea nitrogen [Mass/Vol]44 mg/dLHigh5-27ProPike Community HospitalComment on above:Performed By: #### B12 #### [facility] ([facility]) [address] [place] [address] VIRComprehensive metabolic panelon [id number] [Mass/Vol] 3 g/dLLow3.2 - 5.3 g/dLProHelen Keller Hospital Health SystemALP [Catalytic activity/Vol]71 U/L 39 - 130 U/LProMedica Health SystemALT No additional P-5'-P [Catalytic activity/Vol]12 U/LNINF - 31 U/LProMedica Health SystemAnion gap [Moles/Vol]8 mmol/L5 - 15 mmol/LProMedica Health SystemAST [Catalytic activity/Vol]14 U/LNINF - 41 U/LProMedica Health SystemBilirubin [Mass/Vol]0.5 mg/dL0.3 - 1.2 mg/dL [facility] SystemCalcium [Mass/Vol]9.4 mg/dL8.5 - 10.5 mg/dLProCincinnati [facility] SystemChloride [Moles/Vol]103 mmol/L98 - 109 mmol/LProMedica Health SystemCO2 [Moles/Vol]29 mmol/L22 - 32 mmol/LPrSt. Joseph Medical Centerica Health SystemCreatinine [Mass/Vol]1.8 mg/dLHigh0.40 - 1.00 mg/dLProCincinnati [facility] SystemEGFR Non-Race Nfnxvuyiv46Gzh- PINFPMarion Hospital SystemGlucose [Mass/Vol]207 mg/bUGcxm18 - 99 mg/dLProCincinnati [facility]'S [facility] SystemInterpretation and review of laboratory results AbnormalProCincinnati Children'S [facility] SystemPotassium [Moles/Vol]4.6 mmol/L3.5 - 5.0 mmol/L [facility] SystemProtein [Mass/Vol]5.4 g/dLLow6.0 - 8.0 g/dLProCincinnati Children'S [facility] SystemSodium [Moles/Vol]140 mmol/L134 - 146 mmol/LProMedica [facility] Hospital System Urea nitrogen [Mass/Vol]44 mg/dLHigh5 - 27 mg/dLProCincinnati Children'S Hospital Medical Center SystemMAGNESIUM on 34-81-2749Ojhsgflxw [Mass/Vol]2.1 mg/dLNormal1.8-2.6[facility] Comment on above:Performed By: #### B12 #### [facility] ([facility]) [address] [place] [address] VIRMagnesiumon [id number] and review of laboratory resultsNormalProCincinnati Children'S [facility] SystemMagnesium [Mass/Vol]2.1 mg/dL1.8 - 2.6 mg/dLMercy Health St. [facility] SystemNo Panel Informationon [id number] Health SystemBEDSIDE GLUCOSEon 12-64-6872Usnexaq [Mass/Vol]250 mg/jZPquu58-81 [facility] HospitalComment on above:Performed By: #### B12 #### [facility] ([facility]) [address] [place] [address] VIRGlucose [Mass/Vol]287 mg/aICvub22-29LekVkwhkiPike Community HospitalComment on above:Performed By: #### CPK #### [facility] ([facility]) [address] [place] [address] VIRGlucose [Mass/Vol]274 mg/vHKtzm37-22LkvDdnthsPike Community HospitalComment on above:Performed By: #### CPK #### [facility] ([facility]) [address] [place] [address] VIRGlucose [Mass/Vol]199 mg/yKMsoo57-36NifRvytmgPike Community HospitalComment on above:Performed By: #### CPK #### [facility] ([facility]) [address] [place] [address] VIRBedside Glucose *Place/Obtain serum glucose if >500 per glucometer.on 24-49-2571Fsbghal [Mass/Vol]250 mg/yIYehq25 - 99 mg/dLMercy Health St. [facility] SystemInterpretation and review of laboratory resultsAbnormalJeanes HospitalGlucose [Mass/Vol]287 mg/tJWnss57 - 99 mg/dL [facility] SystemInterpretation and review of laboratory resultsAbnormal Jeanes HospitalGlucose [Mass/Vol]274 mg/lSShar79 - 99 mg/dLMercy Health St. [facility] SystemInterpretation and review of laboratory results AbnormalJeanes HospitalGlucose [Mass/Vol]199 mg/dDDioo61 - 99 mg/dLMercy Health St. [facility] Hospital SystemInterpretation and review of laboratory resultsAbnoThomas Jefferson University HospitalCBC WITH AUTO DIFFERENTIALon [id number] ABSOLUTE COUNT (10*3/UL) BY AUTOMATED COUNT0.0 10*3/uLNormal0.0-0.2POur Lady of Mercy [facility] on above:Result Comment: This is an appended report. These results have been appended to a previously preliminary verified report.Performed By: #### CPK #### [facility] ([facility]) [address] [place] [address] VIRBASOPHILS RELATIVE PERCENT BY AUTOMATED COUNT0.3 %Normal [facility] HospitalComascension macomb on above:Result Comment: This is an appended report. These results have been appended to a previously preliminary verified report.Performed By: #### CPK #### [facility] ([facility]) [address] [place] [address] VIRCELLAVISION DIFFERENTIAL TYPEAUTOMATED DIFFERENTIALNoal [facility] HospitalComascension [place] on above:Result Comment: This is an appended report. These results have been appended to a previously preliminary verified report.Performed By: #### CPK #### [facility] ([facility]) [address] [place] [address] VIREosinophils (Bld) [#/Vol]0.3 10*3/uLNormal0.0-0.4ProUniversity Hospitals Beachwood Medical Center HospitalComment on above:Result Comment: This is an appended report. These results have been appended to a previously preliminary verified report. Performed By: #### CPK #### [facility] ([facility]) [address] [place] [address] VIREOSINOPHILS RELATIVE PERCENT BY AUTOMATED COUNT3.8 %Normal ProMMcKitrick Hospital HospitalComment on above:Result Comment: This is an appended report. These results have been appended to a previously preliminary verified report.Performed By: #### CPK #### [facility] ([facility]) [address] [place] [address] VIRErythrocyte distribution width (RBC) [Ratio]12.4 %Normal 11.5-15ProUniversity Hospitals Beachwood Medical Center HospitalComment on above:Performed By: #### CPK #### [facility] ([facility]) [address] [place] [address] VIRHematocrit (Bld) [Volume fraction]24.7 %Pln84-09RxtQreahn [place] HospitalComment on above:Performed By: #### CPK #### [facility] ([facility]) [address] [place] [address] VIRHemoglobin (Bld) [Mass/Vol]8.5 g/dLLow11.7-15.5PMemorial Health System HospitalComment on above:Performed By: #### CPK #### [facility] ([facility]) [address] [place] [address] VIRLYMPHOCYTES ABSOLUTE COUNT (10*3/UL) BY AUTOMATED COUNT0.5 10*3/uLLow1.0-3.5PMemorial Health System HospitalComment on above:Result Comment: This is an appended report. These results have been appended to a previously prelimi nary verified report.Performed By: #### CPK #### [facility] ([facility]) [address] [place] [address] VIRLYMPHOCYTES RELATIVE PERCENT BY AUTOMATED COUNT5.6 %Normal ProMHocking Valley Community HospitalComment on above:Result Comment: This is an appended report. These results have been appended to a previously preliminary verified report.Performed By: #### CPK #### [facility] ([facility]) [address] [place] [address] VIRMCH (RBC) [Entitic mass]33.6 olSfjxmp04-49EyfDbkiwx [place] HospitalComment on above:Performed By: #### CPK #### [facility] ([facility]) [address] [place] [address] VIRMCHC (RBC) [Mass/Vol]34.4 g/uKBwdcej95-43RjvRogxee [place] HospitalComment on above:Performed By: #### CPK #### [facility] ([facility]) [address] [place] [address] VIRMCV (RBC) [Entitic vol]98 mDFzyxrw96-270OwzZvctnv [place] HospitalComment on above:Performed By: #### CPK #### [facility] ([facility]) [address] [place] [address] VIRMONOCYTES ABSOLUTE COUNT (10*3/UL) BY AUTOMATED COUNT0.8 10*3/uLNormal0.0-0.9[facility] HospitalComascension [place] on above:Result Comment: This is an appended report. These results have been appended to a previously preliminary verified report.Performed By: #### CPK #### [facility] ([facility]) [address] [place] [address] VIRMONOCYTES RELATIVE PERCENT BY AUTOMATED COUNT9.9 %Normal ProMHocking Valley Community HospitalComment on above:Result Comment: This is an appended report. These results have been appended to a previously preliminary verified report.Performed By: #### CPK #### [facility] ([facility]) [address] [place] [address] VIRNEUTROPHILS ABSOLUTE COUNT BY AUTOMATED COUNT6.5 10*3/uL Normal1.5-6.6[facility] HospitalComment on above:Result Comment: This is an appended report. These results have been appended to a previously preliminary verified report.Performed By: #### CPK #### [facility] ([facility]) [address] [place] [address] VIRNEUTROPHILS RELATIVE PERCENT BY AUTOMATED COUNT80.4 %Normal [facility] HospitalComment on above:Result Comment: This is an appended report. These results have been appended to a previously preliminary verified report.Performed By: #### CPK #### [facility] ([facility]) [address] [place] [address] VIRPlatelet mean volume (Bld) [Entitic vol]9.8 fLNormal7-12 [facility] HospitalComment on above:Performed By: #### CPK #### [facility] ([facility]) [address] [place] [address] VIRPlatelets (Bld) [#/Vol]136 10*3/gPXck254-514PsrTnysllPike Community HospitalComment on above:Performed By: #### CPK #### [facility] ([facility]) [address] [place] [address] VIRRBC COUNT2.53 X10E12/LLow3.8-5.2POhio Valley Hospital Comment on above:Performed By: #### CPK #### [facility] ([facility]) [address] [place] [address] VIRWBC (Bld) [#/Vol]8.1 10*3/uLNormal4-11[facility] HospitalComment on above:Performed By: #### CPK #### [facility] ([facility]) [address] [place] [address] [facility] auto differentialon [id number] (Bld) [#/Vol]0 10*3/uL0.0 - 0.2 10*3/uLHighland District HospitalBasophils/100 WBC (Bld)0.3 % [facility] HospitalDifferential cell count method Nom (Bld)AUTOMATED DIFFERENTIALHighland District HospitalEosinophils (Bld) [#/Vol]0.3 10*3/uL0.0 - 0.4 10*3/uLHighland District HospitalEosinophils/100 WBC (Bld)3.8 %[facility] HospitalErythrocyte distribution width (RBC) [Ratio]12.4 %11.5 - 15 %[facility] HospitalHematocrit (Bld) [Volume fraction]24.7 %Low35 - 47 %[facility] HospitalHemoglobin (Bld) [Mass/Vol]8.5 g/dLLow11.7 - 15.5 g/dLHighland District HospitalInterpretation and review of laboratory resultsAbnormalHighland District HospitalLymphocytes (Bld) [#/Vol]0.5 10*3/uLLow1.0 - 3.5 10*3/uLHighland District HospitalLymphocytes/100 WBC (Bld)5.6 %[facility] ColumbusH (RBC) [Entitic mass]33.6 pg27 - 34 [facility] CenterMCHC (RBC) [Mass/Vol]34.4 g/dL32 - 36 g/dLHighland District HospitalMCV (RBC) [Entitic vol]98 fL80 - 100 fL [facility] HospitalMonocytes (Bld) [#/Vol]0.8 10*3/uL0.0 - 0.9 10*3/uL [facility] HospitalMonocytes/100 WBC (Bld)9.9 %[facility] Neutrophils (Bld) [#/Vol]6.5 10*3/uL1.5 - 6.6 10*3/uLHighland District Hospital Neutrophils/100 WBC (Bld)80.4 %[facility] HospitalPlatelet mean volume (Bld) [Entitic vol]9.8 fL7 - 12 fLPSelect Medical Specialty Hospital - CantonPlatelets (Bld) [#/Vol]136 10*3/uLNorthland Medical Center SystemRBC (Bld) [#/Vol]2.53 10*6/[facility] HospitalWBC LM Ql (Sput)8.1PGeisinger-Bloomsburg Hospital COMPREHENSIVE METABOLIC PANELon [id number] [Mass/Vol]3.1 g/dLLow3.2-5.3 [facility] HospitalComment on above:Performed By: #### CPK #### [facility] ([facility]) [address] [place] [address] VIRALP [Catalytic activity/Vol]88 U/NJensey06-184RydDcgmbw [place] HospitalComment on above:Performed By: #### CPK #### [facility] ([facility]) [address] [place] [address] VIRALT [Catalytic activity/Vol]15 U/LNormal<=31ProMedPark[facility] HospitalComment on above:Performed By: #### CPK #### [facility] ([facility]) [address] [place] [address] VIRAnion gap [Moles/Vol]7 mmol/LNormal5-15ProUniversity [facility] HospitalComment on above:Performed By: #### CPK #### [facility] ([facility]) [address] [place] [address] VIRAST [Catalytic activity/Vol]22 U/LNormal<=41[facility] HospitalComment on above:Performed By: #### CPK #### [facility] ([facility]) [address] [place] [address] VIRBilirubin [Mass/Vol]0.6 mg/dLNormal0.3-1.2PMemorial Health System HospitalComment on above:Performed By: #### CPK #### [facility] ([facility]) [address] [place] [address] VIRCalcium [Mass/Vol]9.5 mg/dLNormal8.5-10.5POhio Valley HospitalComment on above:Performed By: #### CPK #### [facility] ([facility]) [address] [address] [place] [address] VIRChloride [Moles/Vol]101 mmol/QLyipgj99-373HaqElwwfj [place] HospitalComment on above:Performed By: #### CPK #### [facility] ([facility]) [address] [place] [address] VIRCO2 [Moles/Vol]28 mmol/VUheisj20-27ChqWnncxl [facility] Comment on above:Performed By: #### CPK #### [facility] ([facility]) [address] [place] [address] VIRCreatinine [Mass/Vol]1.86 mg/dLHigh0.40-1.00ProUniversity Hospitals Beachwood [facility] Center HospitalComment on above:Result Comment: METHOD TRACEABLE TO IDMS STANDARD Performed By: #### CPK #### [facility] ([facility]) [address] [place] [address] VIRGFR/1.73 sq M.predicted among non-blacks MDRD (S/P/Bld) [Vol rate/Area]28 mL/min/{1.73_m2}Low>=60ProPike Community HospitalComment on above: Result Comment: Reported eGFR is based on the CKD-EPI 2020 equation that does not use a race coefficient.Performed By: #### CPK #### [facility] ([facility]) [address] [place] [address] VIRGlucose [Mass/Vol]222 mg/lPWpob47-95CeiDmopux [place] HospitalComment on above:Performed By: #### CPK #### [facility] ([facility]) [address] [place] [address] VIRPotassium [Moles/Vol]5.0 mmol/LNormal3.5-5.0ProMedica Paul HospitalComment on above:Performed By: #### CPK #### [facility] ([facility]) [address] [place] [address] VIRProtein [Mass/Vol]5.4 g/dLLow6.0-8.0ProPike Community HospitalComment on above:Performed By: #### CPK #### [facility] ([facility]) [address] [place] [address] VIRPerformed By: #### B12 #### [facility] ([facility]) [address] [place] [address] VIRSodium [Moles/Vol]136 mmol/KDgrzlg911-845EaoFhxgef [place] HospitalComment on above:Performed By: #### CPK #### [facility] ([facility]) [address] [place] [address] VIRUrea nitrogen [Mass/Vol]46 mg/dLHigh5-27ProUniversity Hospitals Beach[facility] HospitalComment on above:Performed By: #### CPK #### [facility] ([facility]) [address] [place] [address] VIRComprehensive metabolic panelon 32-84-0024Npaoeyj [Mass/Vol] 3.1 g/dLLow3.2 - 5.3 g/dLProMedica Health SystemALP [Catalytic activity/Vol]88 U/L39 - 130 U/LProMedica Health SystemALT No additional P-5'-P [Catalytic activity/Vol]15 U/LNINF - 31 U/LProMedica Health SystemAnion gap [Moles/Vol]7 mmol/L5 - 15 mmol/LProMedica Health SystemAST [Catalytic activity/Vol]22 U/LNINF - 41 U/LProMedica Health SystemBilirubin [Mass/Vol]0.6 mg/dL0.3 - 1.2 mg/dL ProMedica Health SystemCalcium [Mass/Vol]9.5 mg/dL8.5 - 10.5 mg/dLProMedica Health SystemChloride [Moles/Vol]101 mmol/L98 - 109 mmol/LProMedica Health SystemCO2 [Moles/Vol]28 mmol/L22 - 32 mmol/[facility] SystemCreatinine [Mass/Vol]1.86 mg/dLHigh0.40 - 1.00 mg/dLMercy Health St. [facility] Hospital SystemEGFR Non-Race Wvcnnsync17Eal- PINGeorgetown Behavioral Hospital SystemGlucose [Mass/Vol]222 mg/vTDwih24 - 99 mg/dLMercy Health St. Joseph Warren Hospital SystemInterpretation and review of laboratory results AbnormalHighland District HospitalPotassium [Moles/Vol]5 mmol/L3.5 - 5.0 mmol/L ProMMille Lacs Health System Onamia Hospital SystemProtein [Mass/Vol]5.4 g/dLLow6.0 - 8.0 g/dLMercy Health St. Joseph Warren Hospital SystemSodium [Moles/Vol]136 mmol/L134 - 146 mmol/[facility] Urea nitrogen [Mass/Vol]46 mg/dLHigh5 - 27 mg/dLHighland District Hospital IMMUNOELECTROPHORESIS FOR THERAPY MONITORINGon [id number] SHERRELL/LAMBD RATIO 1.14Rhtrkd8.26-1.65ProPike Community HospitalComment on above:Performed By: #### B12 #### [facility] ([facility]) [address] [place] [address] VIRFREE KAPPA LT CHAINS4.92 mg/dLHigh0.33-1.94ProPike Community HospitalComment on above:Performed By: #### B12 #### [facility] ([facility]) [address] [place] [address] VIRFREE LAMBDA LT CHAINS3.72 mg/dLHigh0.57-2.63ProPike Community HospitalComment on above:Performed By: #### B12 #### [facility] ([facility]) [address] [place] [address] VIRIgA [Mass/Vol]169 mg/pXYvmvub56-983WecIilfxa [facility] Comment on above:Performed By: #### B12 #### [facility] ([facility]) [address] [place] [address] VIRIgG [Mass/Vol]685 mg/xWHvddhi856-1971BttSscnim [place] HospitalComment on above:Performed By: #### B12 #### [facility] ([facility]) [address] [place] [address] VIRIgM [Mass/Vol]44 mg/gBHoz62-669OynYgukfjPike Community Hospital Comment on above:Performed By: #### B12 #### [facility] ([facility]) [address] [place] [address] VIRIMMUNUE PROFILE INTERPSee Pathology ReportNormalPike Community HospitalComment on above:Performed By: #### B12 #### [facility] ([facility]) [address] [place] [address] VIRMAGNESIUMon 84-00-4009Zcwlzddrh [Mass/Vol]2.1 mg/dLNormal 1.8-2.6ProPike Community HospitalComment on above:Performed By: #### CPK #### [facility] ([facility]) [address] [place] [address] VIRMagnesiumon 68-31-9029Atrznutyvktdlk and review of laboratory resultsNormalProSelect Medical Specialty Hospital - TrumbullMagnesium [Mass/Vol]2.1 mg/dL1.8 - 2.6 mg/dLHighland District HospitalNo Panel Informationon 84-67-3294LpoUidbygSelect Medical Specialty Hospital - TrumbullPROTEIN ELECTROPHORESIS, SERUMon 93-84-1209Quclbip [Mass/Vol]2.8 g/dLLow3.4-5.3POhio Valley HospitalComment on above:Performed By: #### B12 #### [facility] ([facility]) [address] [place] [address] VIRALPHA 1 GLOBULIN0.5 g/dLHigh0.1-0.4[facility] Comment on above:Performed By: #### B12 #### [facility] ([facility]) [address] [place] [address] VIRALPHA 2 GLOBULIN0.8 g/dLNormal0.4-1.1POhio Valley HospitalComment on above:Performed By: #### B12 #### [facility] ([facility]) [address] [place] [address] VIRBETA GLOBULIN0.7 g/dLNormal0.5-1.2POhio Valley Hospital Comment on above:Performed By: #### B12 #### [facility] ([facility]) [address] [place] [address] VIRGAMMA GLOBULIN0.6 g/dLNormal0.5-1.6ProP[facility] Community Hospital Comment on above:Performed By: #### B12 #### [facility] ([facility]) [address] [place] [address] VIRPROTEIN ELECTROPHORESIS INTERPSee Pathology ReportNormal Pike Community HospitalComment on above:Performed By: #### B12 #### [facility] ([facility]) [address] [place] [address] VIRBEDSIDE GLUCOSEon 61-99-9109Bxixumc [Mass/Vol]236 mg/dLHigh 65-99ProUniversity Hospitals Beach[facility] HospitalComment on above:Performed By: #### CPK #### [facility] ([facility]) [address] [place] [address] VIRGlucose [Mass/Vol]234 mg/aNFdwa07-41ZusFukhkq [place] HospitalComment on above:Performed By: #### BMP #### [facility] ([facility]) [address] [place] [address] VIRGlucose [Mass/Vol]239 mg/lGVowu50-43ElmBofhup [place] HospitalComment on above:Performed By: #### BMP #### [facility] ([facility]) [address] [place] [address] VIRGlucose [Mass/Vol]201 mg/tKOtfp26-82FetDwpopy [facility] HospitalComment on above:Performed By: #### BMP #### [facility] ([facility]) [address] [place] [address] VIRBedside Glucose *Place/Obtain serum glucose if >500 per glucometer.on 23-28-7549Gemzdgi [Mass/Vol]236 mg/dDPkkp27 - 99 mg/dLHighland District HospitalInterpretation and review of laboratory resultsAbnoalJeanes HospitalGlucose [Mass/Vol]234 mg/aKUrhe51 - 99 mg/dL [facility] District HospitalInterpretation and review of laboratory resultsAbnormal Jeanes HospitalGlucose [Mass/Vol]239 mg/bURbod05 - 99 mg/dLMercy Health St. Joseph Warren Hospital SystemInterpretation and review of laboratory results AbnormalJeanes HospitalGlucose [Mass/Vol]201 mg/oDRejt61 - 99 mg/dLHighland District HospitalInterpretation and review of laboratory resultsAbnoThomas Jefferson University HospitalCBC WITH AUTO DIFFERENTIALon 29-49-9271ZKPLMIOYR ABSOLUTE COUNT (10*3/UL) BY AUTOMATED COUNT0.0 10*3/uLNormal0.0-0.2POhio Valley HospitalComment on above:Performed By: #### BMP #### [facility] ([facility]) [address] [place] [address] VIRBASOPHILS RELATIVE PERCENT BY AUTOMATED COUNT0.5 %Normal Pike Community HospitalComment on above:Performed By: #### BMP #### [facility] ([facility]) [address] [place] [address] VIRCELLAVISION DIFFERENTIAL TYPEAUTOMATED DIFFERENTIALNormal [facility] HospitalComment on above:Performed By: #### BMP #### [facility] ([facility]) [address] [place] [address] VIREosinophils (Bld) [#/Vol]0.4 10*3/uLNormal0.0-0.4Pike Community HospitalComment on above:Performed By: #### BMP #### [facility] ([facility]) [address] [place] [address] VIREOSINOPHILS RELATIVE PERCENT BY AUTOMATED COUNT5.8 %Normal [facility]lin HospitalComment on above:Performed By: #### BMP #### [facility] ([facility]) [address] [place] [address] VIRErythrocyte distribution width (RBC) [Ratio]12.3 %Normal 11.5-15ProMedica Paul HospitalComment on above:Performed By: #### BMP #### [facility] ([facility]) [address] [place] [address] VIRHematocrit (Bld) [Volume fraction]24.2 %Ezu98-16MdfYikfqx Paul HospitalComment on above:Performed By: #### BMP #### [facility] ([facility]) [address] [place] [address] VIRHemoglobin (Bld) [Mass/Vol]8.2 g/dLLow11.7-15.5ProMedica Parlin HospitalComment on above:Performed By: #### BMP #### [facility] ([facility]) [address] [place] [address] VIRLYMPHOCYTES ABSOLUTE COUNT (10*3/UL) BY AUTOMATED COUNT0.9 10*3/uLLow1.0-3.5ProMedParkview Health Montpelier Hospital HospitalComment on above:Performed By: #### BMP #### [facility] ([facility]) [address] [place] [address] VIRLYMPHOCYTES RELATIVE PERCENT BY AUTOMATED COUNT12.5 %Normal [facility]lin HospitalComment on above:Performed By: #### BMP #### [facility] ([facility]) [address] [place] [address] VIRMCH (RBC) [Entitic mass]32.9 gtChhood49-22InkIpsasw Paul HospitalComment on above:Performed By: #### BMP #### [facility] ([facility]) [address] [place] [address] VIRMCHC (RBC) [Mass/Vol]34.0 g/tRXjiqyf52-26NsuOaxhck [place] HospitalComment on above:Performed By: #### BMP #### [facility] ([facility]) [address] [place] [address] VIRMCV (RBC) [Entitic vol]97 tIThmcni59-709WuwTgkszw [place] HospitalComment on above:Performed By: #### BMP #### [facility] ([facility]) [address] [place] [address] VIRMONOCYTES ABSOLUTE COUNT (10*3/UL) BY AUTOMATED COUNT0.8 10*3/uLNormal0.0-0.9ProUniversity Hospitals Beach[facility] HospitalComment on above:Performed By: #### BMP #### [facility] ([facility]) [address] [place] [address] VIRMONOCYTES RELATIVE PERCENT BY AUTOMATED COUNT10.7 %Normal ProMMcKitrick Hospital HospitalComment on above:Performed By: #### BMP #### [facility] ([facility]) [address] [place] [address] VIRNEUTROPHILS ABSOLUTE COUNT BY AUTOMATED COUNT5.0 10*3/uL Normal1.5-6.6ProUniversity Hospitals Beach[facility] HospitalComment on above:Performed By: #### BMP #### [facility] ([facility]) [address] [place] [address] VIRNEUTROPHILS RELATIVE PERCENT BY AUTOMATED COUNT70.5 %Normal ProMMcKitrick Hospital HospitalComment on above:Performed By: #### BMP #### [facility] ([facility]) [address] [place] [address] VIRPlatelet mean volume (Bld) [Entitic vol]9.5 fLNormal7-12 ProMhighlands medical centera [facility] HospitalComment on above:Performed By: #### BMP #### [facility] ([facility]) [address] [place] [address] VIRPlatelets (Bld) [#/Vol]120 10*3/pHJab763-729DbmBqrkebPike Community HospitalComment on above:Performed By: #### BMP #### [facility] ([facility]) [address] [place] [address] VIRRBC COUNT2.50 X10E12/LLow3.8-5.2POhio Valley Hospital Comment on above:Performed By: #### BMP #### [facility] ([facility]) [address] [place] [address] VIRWBC (Bld) [#/Vol]7.0 10*3/uLNormal4-11P[facility] Community HospitalComment on above:Performed By: #### BMP #### [facility] ([facility]) [address] [place] [address] VIRCBC auto differentialon [id number] (Bld) [#/Vol]0 10*3/uL0.0 - 0.2 10*3/uLHighland District HospitalBasophils/100 WBC (Bld)0.5 % [facility] HospitalDifferential cell count method Nom (Bld)AUTOMATED DIFFERENTIALHighland District HospitalEosinophils (Bld) [#/Vol]0.4 10*3/uL0.0 - 0.4 10*3/uLHighland District HospitalEosinophils/100 WBC (Bld)5.8 %[facility] District HospitalErythrocyte distribution width (RBC) [Ratio]12.3 %11.5 - 15 %[facility] HospitalHematocrit (Bld) [Volume fraction]24.2 %Low35 - 47 %[facility] HospitalHemoglobin (Bld) [Mass/Vol]8.2 g/dLLow11.7 - 15.5 g/dLHighland District HospitalInterpretation and review of laboratory resultsAbnormalHighland District HospitalLymphocytes (Bld) [#/Vol]0.9 10*3/uLLow1.0 - 3.5 10*3/uLMercy Health St. Joseph Warren Hospital SystemLymphocytes/100 WBC (Bld)12.5 %[facility] ColumbusH (RBC) [Entitic mass]32.9 pg27 - 34 pgPSelect Medical Specialty Hospital - CantonMCHC (RBC) [Mass/Vol]34 g/dL32 - 36 g/dLHighland District HospitalMCV (RBC) [Entitic vol]97 fL80 - 100 fL [facility] HospitalMonocytes (Bld) [#/Vol]0.8 10*3/uL0.0 - 0.9 10*3/uL [facility] HospitalMonocytes/100 WBC (Bld)10.7 %[facility] Neutrophils (Bld) [#/Vol]5 10*3/uL1.5 - 6.6 10*3/uLHighland District Hospital Neutrophils/100 WBC (Bld)70.5 %[facility] District HospitalPlatelet mean volume (Bld) [Entitic vol]9.5 fL7 - 12 Carondelet HealthPlatelets (Bld) [#/Vol]120 10*3/uLLowHighland District HospitalRBC (Bld) [#/Vol]2.5 10*6/[facility] Borg[facility] HospitalWBC LM Ql (Sput)7[facility] COMPREHENSIVE METABOLIC PANELon 66-02-7466Pzthint [Mass/Vol]3.1 g/dLLow3.2-5.3 [facility] HospitalComment on above:Performed By: #### BMP #### [facility] ([facility]) [address] [place] [address] VIRALP [Catalytic activity/Vol]87 U/BZitbjb03-795GybFquavwPike Community HospitalComment on above:Performed By: #### BMP #### [facility] ([facility]) [address] [place] [address] VIRALT [Catalytic activity/Vol]39 U/LHigh<=31POhio Valley HospitalComment on above:Performed By: #### BMP #### [facility] ([facility]) [address] [place] [address] VIRAnion gap [Moles/Vol]7 mmol/LNormal5-15[facility] HospitalComment on above:Performed By: #### BMP #### [facility] ([facility]) [address] [place] [address] VIRAST [Catalytic activity/Vol]56 U/LHigh<=41Pro[facility]lin HospitalComment on above:Performed By: #### BMP #### [facility] ([facility]) [address] [place] [address] VIRBilirubin [Mass/Vol]0.4 mg/dLNormal0.3-1.2ProMedParkview Health Montpelier Hospital HospitalComment on above:Performed By: #### BMP #### [facility] ([facility]) [address] [place] [address] VIRCalcium [Mass/Vol]9.5 mg/dLNormal8.5-10.5ProMedParkview Health Montpelier Hospital HospitalComment on above:Performed By: #### BMP #### [facility] ([facility]) [address] [place] [address] VIRChloride [Moles/Vol]103 mmol/JHcvgwn71-262ZpiZmfowl [place] HospitalComment on above:Performed By: #### BMP #### [facility] ([facility]) [address] [place] [address] VIRCO2 [Moles/Vol]28 mmol/PUubabo38-88OpvQtrfuy [facility] Comment on above:Performed By: #### BMP #### [facility] ([facility]) [address] [place] [address] VIRCreatinine [Mass/Vol]2.28 mg/dLHigh0.40-1.00ProPike Community HospitalComment on above:Result Comment: METHOD TRACEABLE TO IDMS STANDARD Performed By: #### BMP #### [facility] ([facility]) [address] [place] [address] VIRGFR/1.73 sq M.predicted among non-blacks MDRD (S/P/Bld) [Vol rate/Area]22 mL/min/{1.73_m2}Low>=60ProUniversity Hospitals Beach[facility] HospitalComment on above: Result Comment: Reported eGFR is based on the CKD-EPI 2020 equation that does not use a race coefficient.Performed By: #### BMP #### [facility] ([facility]) [address] [place] [address] VIRGlucose [Mass/Vol]151 mg/wHCpli22-12FocKwnaaz [place] HospitalComment on above:Performed By: #### BMP #### [facility] ([facility]) [address] [place] [address] VIRPotassium [Moles/Vol]5.2 mmol/LHigh3.5-5.0ProUniversity Hospitals [facility] HospitalComment on above:Performed By: #### BMP #### [facility] ([facility]) [address] [place] [address] VIRProtein [Mass/Vol]5.5 g/dLLow6.0-8.0ProUniversity Hospitals [facility] HospitalComment on above:Performed By: #### BMP #### [facility] ([facility]) [address] [place] [address] VIRSodium [Moles/Vol]138 mmol/HSvwebs531-584LotOemesh [place] HospitalComment on above:Performed By: #### BMP #### [facility] ([facility]) [address] [place] [address] VIRUrea nitrogen [Mass/Vol]53 mg/dLHigh5-27ProUniversity Hospitals [facility] HospitalComment on above:Performed By: #### BMP #### [facility] ([facility]) [address] [place] [address] VIRComprehensive metabolic panelon 47-82-1511Xddktgt [Mass/Vol] 3.1 g/dLLow3.2 - 5.3 g/dLProDayton Children'S Hospitalca [facility] SystemALP [Catalytic activity/Vol]87 U/L39 - 130 U/LProMedica Health SystemALT No additional P-5'-P [Catalytic activity/Vol]39 U/LHighNINF - 31 U/LProMedica Health SystemAnion gap [Moles/Vol] 7 mmol/L5 - 15 mmol/LProMedica Health SystemAST [Catalytic activity/Vol]56 U/L HighNINF - 41 U/LProMedmizell memorial hospital Health SystemBilirubin [Mass/Vol]0.4 mg/dL0.3 - 1.2 mg/dLProHelen Keller Hospital Health SystemCalcium [Mass/Vol]9.5 mg/dL8.5 - 10.5 mg/dLProCincinnati Children'S [facility] SystemChloride [Moles/Vol]103 mmol/L98 - 109 mmol/LProMedica Health SystemCO2 [Moles/Vol]28 mmol/L22 - 32 mmol/LPrPresbyterian/St. Luke's Medical Center Health SystemCreatinine [Mass/Vol]2.28 mg/dLHigh0.40 - 1.00 mg/dLMercy Health St. Joseph Warren Hospital SystemEGFR Non-Race Txrfmojak85Qmw- PINFPMarion Hospital SystemGlucose [Mass/Vol]151 mg/lQJxvc00 - 99 mg/dLMercy Health St. Joseph Warren Hospital SystemInterpretation and review of laboratory results AbnormalProHelen Keller Hospital Health SystemPotassium [Moles/Vol]5.2 mmol/LHigh3.5 - 5.0 mmol/LProMedica Health SystemProtein [Mass/Vol]5.5 g/dLLow6.0 - 8.0 g/dL ProMMille Lacs Health System [facility] SystemSodium [Moles/Vol]138 mmol/L134 - 146 mmol/LPrSt. Joseph Medical Centerica Health SystemUrea nitrogen [Mass/Vol]53 mg/dLHigh5 - 27 mg/dLMercy Health St. [facility] Hospital SystemFERRITINon [phone] [Mass/Vol]76 ng/uXJsckwd41-881WvqUsscpr Toledo HospitalComment on above:Performed By: #### CPK #### [facility] ([facility]) [address] [place] [address] VIRFOLATEon [id number] ACID17.9 ng/mLNormal>5.8ProPike Community HospitalComment on above:Performed By: #### CPK #### [facility] ([facility]) [address] [place] [address] VIRFerritinon [phone] [Mass/Vol]76 ng/mL11 - 307 ng/mLMercy Health St. [facility] SystemInterpretation and review of laboratory results NormalProBellin Health's [facility] SystemFolateon [phone] [Mass/Vol]17.9 ng/mL5.8 - PINF ng/mLMercy Health St. [facility] SystemInterpretation and review of laboratory resultsNormalProMediMemorial Sloan Kettering Cancer CenterProCincinnati [facility] System IRON AND TIBCon [phone] [Mass/Vol]12 ug/rOMfw38-005KyoOwyedxPike Community HospitalComment on above:Performed By: #### BMP #### [facility] ([facility]) [address] [place] [address] VIRIRON LVOQEYL462 ug/bRSepunx705-543GmzNcmubfPike Community Hospital Comment on above:Performed By: #### BMP #### [facility] [facility] [address] [place] [address] VIRIRON SATURATION4 % OBTOVJONMMHmd27-23QwiXuixns [place] HospitalComment on above:Performed By: #### BMP #### [facility] ([facility]) [address] [place] [address] VIRTransferrin [Mass/Vol]195 mg/uQLejrxr634-489VshGykxog [place] HospitalComment on above:Performed By: #### BMP #### [facility] ([facility]) [address] [place] [address] VIRIron and TIBCon 28-90-4839Djjzlmibgojrcn and review of laboratory resultsAbnormalMercy Health St. Joseph Warren Hospital SystemIron [Mass/Vol]12 ug/dLLow50 - 170 ug/dLProSelect Medical Specialty Hospital - TrumbullIron binding capacity [Mass/Vol]273 ug/dL250 - 425 ug/dLProSelect Medical Specialty Hospital - TrumbullIron saturation [Mass fraction]4LowProCincinnati Children'S Hospital Medical Center SystemTransferrin [Mass or moles/Vol]195 mg/dL168 - 336 mg/dLProMediBeaufort Memorial Hospital SystemMAGNESIUMon 74-20-5724Cikstbzlb [Mass/Vol] 2.2 mg/dLNormal1.8-2.6ProUniversity Hospitals Beachwood Medical Center HospitalComment on above:Performed By: #### BMP #### [facility] ([facility]) [address] [place] [address] VIRMagnesiumon 47-80-8771Ilvsyhivbvslzg and review of laboratory resultsNormalMercy Health St. Joseph Warren Hospital SystemMagnesium [Mass/Vol]2.2 mg/dL1.8 - 2.6 mg/dLMercy Health St. Joseph Warren Hospital SystemNo Panel Informationon 95-29-0585KxmOnmloo Health SystemVITAMIN B12on 87-01-9403Tnnuzabzw (Vitamin B12) [Mass/Vol]314 pg/mL Qhetzk164-886CaeIasygf Corey HospitalComment on above:Performed By: #### CPK #### [facility] ([facility]) [address] [place] [address] VIRVitamin B12on 14-79-9251Ilqwudrqe (Vitamin B12) [Mass/Vol] 314 pg/mL180 - 914 pg/mLHighland District HospitalInterpretation and review of laboratory resultsNormalProCincinnati Children'S Hospital Medical Center SystemProCincinnati Children'S Hospital [facility] Center SystemBEDSIDE GLUCOSEon 24-08-0403Lamvazf [Mass/Vol]223 mg/yZLiqu54-63LyjToabpl [place] HospitalComment on above:Performed By: #### BMP #### [facility] ([facility]) [address] [place] [address] VIRGlucose [Mass/Vol]271 mg/zKArtu92-26VpvTsyifp [place] HospitalComment on above:Performed By: #### BMP #### [facility] ([facility]) [address] [place] [address] VIRGlucose [Mass/Vol]234 mg/tNNgwe87-48RhdTkgjrx [place] HospitalComment on above:Performed By: #### PAB #### [facility] ([facility]) [address] [place] [address] VIRGlucose [Mass/Vol]204 mg/xJHciw80-85IdpEmkcjePike Community HospitalComment on above:Performed By: #### TSC #### [facility] ([facility]) [address] [place] [address] VIRBedside Glucose *Place/Obtain serum glucose if >500 per glucometer.on 07-05-3169Zpuvvbs [Mass/Vol]223 mg/pTWnde70 - 99 mg/dLMercy Health St. Joseph Warren Hospital SystemInterpretation and review of laboratory resultsAbnormalJeanes HospitalGlucose [Mass/Vol]271 mg/mELbpp18 - 99 mg/dL [facility] HospitalInterpretation and review of laboratory resultsAbnormal Jeanes HospitalGlucose [Mass/Vol]234 mg/gZXerp39 - 99 mg/dLHighland District HospitalInterpretation and review of laboratory results AbnormalJeanes HospitalGlucose [Mass/Vol]204 mg/eHNpkl47 - 99 mg/dLHighland District HospitalInterpretation and review of laboratory resultsAbnoThomas Jefferson University HospitalCBC WITH AUTO DIFFERENTIALon 89-29-6819JBOCWDJNS ABSOLUTE COUNT (10*3/UL) BY AUTOMATED COUNT0.0 10*3/uLNormal0.0-0.2POhio Valley HospitalComment on above:Performed By: #### TSC #### [facility] ([facility]) [address] [place] [address] VIRBASOPHILS RELATIVE PERCENT BY AUTOMATED COUNT0.2 %Normal [facility] Community HospitalComment on above:Performed By: #### TSC #### [facility] ([facility]) [address] [place] [address] VIRCELLAVISION DIFFERENTIAL TYPEAUTOMATED DIFFERENTIALNormal [facility] Community HospitalComment on above:Performed By: #### TSC #### [facility] ([facility]) [address] [place] [address] VIREosinophils (Bld) [#/Vol]0.0 10*3/uLNormal0.0-0.4ProDayton Children'S Hospitalca Paul HospitalComment on above:Performed By: #### TSC #### [facility] ([facility]) [address] [place] [address] VIREOSINOPHILS RELATIVE PERCENT BY AUTOMATED COUNT0.3 %Normal ProMhighlands medical centera Parlin HospitalComment on above:Performed By: #### TSC #### [facility] ([facility]) [address] [place] [address] VIRErythrocyte distribution width (RBC) [Ratio]12.6 %Normal 11.5-15ProDayton Children'S Hospitalca Parlin HospitalComment on above:Performed By: #### TSC #### [facility] ([facility]) [address] [place] [address] VIRHematocrit (Bld) [Volume fraction]28.2 %Kxc92-44QngXuwyui [place]lin HospitalComment on above:Performed By: #### TSC #### [facility] ([facility]) [address] [place] [address] VIRHemoglobin (Bld) [Mass/Vol]9.3 g/dLLow11.7-15.5PMemorial Health System HospitalComment on above:Performed By: #### TSC #### [facility] ([facility]) [address] [place] [address] VIRLYMPHOCYTES ABSOLUTE COUNT (10*3/UL) BY AUTOMATED COUNT0.4 10*3/uLLow1.0-3.5PMemorial Health System HospitalComment on above:Performed By: #### TSC #### [facility] ([facility]) [address] [place] [address] VIRLYMPHOCYTES RELATIVE PERCENT BY AUTOMATED COUNT4.5 %Normal ProMMcKitrick Hospital HospitalComment on above:Performed By: #### TSC #### [facility] ([facility]) [address] [place] [address] VIRMCH (RBC) [Entitic mass]32.1 hwRymugq64-75EvcBgwypr Paul HospitalComment on above:Performed By: #### TSC #### [facility] ([facility]) [address] [facility] [address] VIRMCHC (RBC) [Mass/Vol]33.1 g/eKSyfeej80-55MyzUycxbv Paul HospitalComment on above:Performed By: #### TSC #### [facility] ([facility]) [address] [place] [place] [address] VIRMCV (RBC) [Entitic vol]97 hEXljffj58-025XazZenoby Paul HospitalComment on above:Performed By: #### TSC #### [facility] ([facility]) [address] [place] [address] VIRMONOCYTES ABSOLUTE COUNT (10*3/UL) BY AUTOMATED COUNT0.8 10*3/uLNormal0.0-0.9ProDayton Children'S Hospitalca Parlin HospitalComment on above:Performed By: #### TSC #### [facility] ([facility]) [address] [place] [address] VIRMONOCYTES RELATIVE PERCENT BY AUTOMATED COUNT8.3 %Normal ProMMcKitrick Hospital HospitalComment on above:Performed By: #### TSC #### [facility] ([facility]) [address] [place] [address] VIRNEUTROPHILS ABSOLUTE COUNT BY AUTOMATED COUNT7.9 10*3/uLHigh 1.5-6.6ProDayton Children'S Hospitalca Paul HospitalComment on above:Performed By: #### TSC #### [facility] ([facility]) [address] [place] [address] VIRNEUTROPHILS RELATIVE PERCENT BY AUTOMATED COUNT86.7 %Normal ProMhighlands medical centera Paul HospitalComment on above:Performed By: #### TSC #### [facility] ([facility]) [address] [facility] [place] [place] [address] VIRPlatelet mean volume (Bld) [Entitic vol]9.0 fLNormal7-12 [facility] Paul HospitalComment on above:Performed By: #### TSC #### [facility] ([facility]) [address] [place] [address] VIRPlatelets (Bld) [#/Vol]138 10*3/qLMvb918-165IxuVxajgfPike Community HospitalComment on above:Performed By: #### TSC #### [facility] ([facility]) [address] [place] [address] VIRRBC COUNT2.91 X10E12/LLow3.8-5.2POhio Valley Hospital Comment on above:Performed By: #### TSC #### [facility] ([facility]) [address] [place] [address] VIRWBC (Bld) [#/Vol]9.1 10*3/uLNormal4-11P[facility] Community HospitalComment on above:Performed By: #### TSC #### [facility] ([facility]) [address] [place] [address] VIRCBC auto differentialon 68-45-1324Jlscvaxkl (Bld) [#/Vol]0 10*3/uL0.0 - 0.2 10*3/uLHighland District HospitalBasophils/100 WBC (Bld)0.2 % [facility] HospitalDifferential cell count method Nom (Bld)AUTOMATED DIFFERENTIALHighland District HospitalEosinophils (Bld) [#/Vol]0 10*3/uL0.0 - 0.4 10*3/uLHighland District HospitalEosinophils/100 WBC (Bld)0.3 %[facility] HospitalErythrocyte distribution width (RBC) [Ratio]12.6 %11.5 - 15 %[facility] HospitalHematocrit (Bld) [Volume fraction]28.2 %Low35 - 47 %[facility] HospitalHemoglobin (Bld) [Mass/Vol]9.3 g/dLLow11.7 - 15.5 g/dLHighland District HospitalInterpretation and review of laboratory resultsAbnormalHighland District HospitalLymphocytes (Bld) [#/Vol]0.4 10*3/uLLow1.0 - 3.5 10*3/uLHighland District HospitalLymphocytes/100 WBC (Bld)4.5 %[facility] - ColumbusH (RBC) [Entitic mass]32.1 pg27 - 34 pgPSelect Medical Specialty Hospital - CantonMCHC (RBC) [Mass/Vol]33.1 g/dL32 - 36 g/dLHighland District HospitalMCV (RBC) [Entitic vol]97 fL80 - 100 fL [facility] HospitalMonocytes (Bld) [#/Vol]0.8 10*3/uL0.0 - 0.9 10*3/uL [facility] HospitalMonocytes/100 WBC (Bld)8.3 %[facility] Neutrophils (Bld) [#/Vol]7.9 10*3/uLHigh1.5 - 6.6 10*3/uLHighland District Hospital Neutrophils/100 WBC (Bld)86.7 %[facility] HospitalPlatelet mean volume (Bld) [Entitic vol]9 fL7 - 12 Carondelet HealthPlatelets (Bld) [#/Vol]138 10*3/uLLowHighland District HospitalRBC (Bld) [#/Vol]2.91 10*6/uLProvidence HospitalWBC LM Ql (Sput)9.1PGeisinger-Bloomsburg Hospital COMPREHENSIVE METABOLIC PANELon 06-98-9272Ntlysif [Mass/Vol]3.2 g/dLNormal 3.2-5.3POhio Valley HospitalComment on above:Performed By: #### PAB #### [facility] ([facility]) [address] [place] [address] VIRALP [Catalytic activity/Vol]118 U/JIkkryu74-960CcpVlljsjPike Community HospitalComment on above:Performed By: #### PAB #### [facility] ([facility]) [address] [place] [address] VIRALT [Catalytic activity/Vol]339 U/LHigh<=31POhio Valley HospitalComment on above:Performed By: #### PAB #### [facility] ([facility]) [address] [place] [address] VIRAnion gap [Moles/Vol]8 mmol/LNormal5-15ProMedica Paul HospitalComment on above:Performed By: #### PAB #### [facility] ([facility]) [address] [place] [address] VIRAST [Catalytic activity/Vol]261 U/LHigh<=41ProMedica Paul HospitalComment on above:Performed By: #### PAB #### [facility] ([facility]) [address] [place] [address] VIRBilirubin [Mass/Vol]0.4 mg/dLNormal0.3-1.2ProMedica Parlin HospitalComment on above:Performed By: #### PAB #### [facility] ([facility]) [address] [place] [address] VIRCalcium [Mass/Vol]9.1 mg/dLNormal8.5-10.5ProMedica Parlin HospitalComment on above:Performed By: #### PAB #### [facility] ([facility]) [address] [place] [address] VIRChloride [Moles/Vol]102 mmol/TLsjivo85-241NpvOnagqg [place] HospitalComment on above:Performed By: #### PAB #### [facility] ([facility]) [address] [place] [address] VIRCO2 [Moles/Vol]26 mmol/YTzraka21-81ShoUamfvn [facility] Comment on above:Performed By: #### PAB #### [facility] ([facility]) [address] [place] [address] VIRCreatinine [Mass/Vol]2.45 mg/dLHigh0.40-1.00ProUniversity Hospitals Beachwood Medical Center HospitalComment on above:Result Comment: METHOD TRACEABLE TO IDMS STANDARD Performed By: #### PAB #### [facility] ([facility]) [address] [place] [address] VIRGFR/1.73 sq M.predicted among non-blacks MDRD (S/P/Bld) [Vol rate/Area]20 mL/min/{1.73_m2}Low>=60ProMedica Parlin HospitalComment on above: Result Comment: Reported eGFR is based on the CKD-EPI 2020 equation that does not use a race coefficient.Performed By: #### PAB #### [facility] ([facility]) [address] [place] [address] VIRGlucose [Mass/Vol]207 mg/kTAucq17-56XhfYuoxlg [place] HospitalComment on above:Performed By: #### PAB #### [facility] ([facility]) [address] [place] [address] VIRPotassium [Moles/Vol]5.2 mmol/LHigh3.5-5.0ProDayton Children'S Hospitalca [place] HospitalComment on above:Performed By: #### PAB #### [facility] ([facility]) [address] [place] [address] VIRProtein [Mass/Vol]5.7 g/dLLow6.0-8.0ProUniversity Hospitals Beachwood Medical Center HospitalComment on above:Performed By: #### PAB #### [facility] ([facility]) [address] [place] [address] VIRSodium [Moles/Vol]136 mmol/QTomyub168-974PljQssxmu [place] HospitalComment on above:Performed By: #### PAB #### [facility] ([facility]) [address] [place] [address] VIRUrea nitrogen [Mass/Vol]50 mg/dLHigh5-27ProUniversity Hospitals Beachwood [facility] Center HospitalComment on above:Performed By: #### PAB #### [facility] ([facility]) [address] [place] [address] VIRCOMPREHENSIVE METABOLIC PANELCMP COMPREHENSIVE METABOLIC PANEL CancelledNormalProDayton Children'S Hospitalca Parlin HospitalComment on above:Order Comment: I SPOKE TO TAHMINA TORRES AT 0755AM FOR A REDRAW AND SHE SAID SOMEONE HAD ALREADY CALLED FOR A REDRAW.Cardiac echo study ProcedureOrdered By: Derrek Llanes on 53-32-7672Ferejz root3.5 CDEL Work Phone: [phone] valve Mean systole pressure gradient by US.doppler derived full Hrpvmoqru4giFoBapCdsneq Health System Work Phone: Aortic valve Peak systolic flow by US.mdjychn471 cm/s [employer] Work Phone: AV peak gradient6.55mmHgProctor HospitalCurefab Work Phone: AV Velocity Ratio0.99Proctor HospitalCurefab Work Phone: AV VTI33 CDEL Work Phone: [phone] wave deceleration qxva328tyfnCdeRycjytHybridSite Web Services Work Phone: E/A ratio1.31P[employer] Work Phone: [phone] loss index17.98Proctor HospitalCurefab Work Phone: [phone]. RA cksavvrl0ezTtMmoDwmlwxHybridSite [employer] Services Work Phone: [phone] %28 - 44 %[employer] Work Phone: [phone] Vena Cava Diameter2 CDEL Work Phone: [phone] Septum Diastolic Thickness by 2D11 cm [employer] Work Phone: IVC ubxqofrj33 CDEL Work Phone: [phone] cm0.6 - 1.1 [employer] Work Phone: [phone] size4.1 CDEL Work Phone: [phone] xcqkfi51.6 ya6VbvEfelzvCurefab Work Phone: [phone] Volume Index51.2 mL/j7WgfBczmdzCurefab Work Phone: [phone] Ventricle [phone] [facility] CenterTexan Hosting Work Phone: LV ESV A1L996 mLProctor HospitalSphereUp System Work Phone: [phone] ESV A4C94.4 mLProctor HospitalSphereUp System Work Phone: [phone] RWT 5C81BzcYunmyaCurefab Work Phone: [phone] cm4.42 - 6.14 [facility] Work Phone: [phone] cm2.61 - 3.96 [facility]Get [facility] Work Phone: LVOT peak vel1.11 m/[facility] CenterTexan Hosting Work Phone: [phone] peak VTI32.8 [facility] HospitalGet [facility] Work Phone: MV Peak A Lwi418 cm/[employer] Work Phone: MV Peak E Pxr590 cm/[employer] Work Phone: MV pressure 1/2 time69 [facility] ServicesGet [facility] It Sales Work Phone: MV TDI E' (medial)5.43 cm/[employer] Work Phone: MV valve area p 1/2 method3.19 uq6WrbXmratrCurefab Work Phone: PV peak gradient4.24mmHgProctor HospitalCurefab Work Phone: VB6.1 cm0.6 - 1.1 [facility] Work Phone: RA area16.5 rd7UslAxrvpuCurefab Work Phone: RV diastolic dimension (basal)32 [facility]Get [facility] Work Phone: CTLTU7.28 [facility] HospitalGet [facility] Work Phone: PLD0.01 cm/[employer] Work Phone: MJKMFY-5.69Pro[facility] HospitalCurefab Work Phone: SAKTKV-0.09Pro[facility] HospitalCurefab Work Phone: [phone] Work Phone: Cardiac echo study Procedureon 02-35-0158FYLEIDY Radiology Study observation (narrative)[facility] HospitalComprehensive metabolic panelon 09-95-7409Jchcdjg [Mass/Vol]3.2 g/dL3.2 - 5.3 g/dLProCincinnati Children'S Hospital Medical Center SystemALP [Catalytic activity/Vol]118 U/L39 - 130 U/LProMedica Health SystemALT No additional P-5'-P [Catalytic activity/Vol]339 U/LHighNINF - 31 U/L [facility] HospitalAnion gap [Moles/Vol]8 mmol/L5 - 15 mmol/LProMedica Health SystemAST [Catalytic activity/Vol]261 U/LHighNINF - 41 U/LProMedica Health SystemBilirubin [Mass/Vol]0.4 mg/dL0.3 - 1.2 mg/dLMercy Health St. Joseph [facility] Hospital System Calcium [Mass/Vol]9.1 mg/dL8.5 - 10.5 mg/dLMercy Health St. Joseph Warren Hospital SystemChloride [Moles/Vol]102 mmol/L98 - 109 mmol/LProMedica Health SystemCO2 [Moles/Vol]26 mmol/L22 - 32 mmol/LProMedica Health SystemCreatinine [Mass/Vol]2.45 mg/dLHigh 0.40 - 1.00 mg/dLMercy Health St. Joseph Warren Hospital SystemEGFR Non-Race Lheoyqjns22Pqx- PINF [facility] HospitalGlucose [Mass/Vol]207 mg/wLSfyf35 - 99 mg/dLMercy Health St. Joseph Warren Hospital SystemInterpretation and review of laboratory resultsAbnormalProCincinnati Children'S Hospital Medical Center SystemPotassium [Moles/Vol]5.2 mmol/LHigh3.5 - 5.0 mmol/LProMedica Health SystemProtein [Mass/Vol]5.7 g/dLLow6.0 - 8.0 g/dLRegency Hospital Cleveland East Health SystemSodium [Moles/Vol]136 mmol/L134 - 146 mmol/LProMedica Health SystemUrea nitrogen [Mass/Vol]50 mg/dLHigh5 - 27 mg/dLMercy Health St. Joseph Warren Hospital SystemECG 12 leadon 50-24-7453CEFSADVSPPZKJLRmrHhzdqs Health SystemLaboratory - Chemistry and Chemistry - challengeon 39-04-4134Rnjniygfsf (U) [Mass/Vol]83.62 mg/dLMercy Health St. Joseph [facility] Hospital SystemMAGNESIUMon 71-17-9258Bysrxqnkt [Mass/Vol]2.3 mg/dLNormal1.8-2.6 ProMhighlands medical centera Corey HospitalComment on above:Performed By: #### PAB #### [facility] ([facility]) [address] [place] [address] VIRMAGNESIUMMG MAGNESIUM CancelledNormalHolzer Hospital HospitalComment on above:Order Comment: I SPOKE TO TAHMINA TORRES AT 0755AM FOR A REDRAW AND SHE SAID SOMEONE HAD ALREADY CALLED FOR A REDRAW.MICROALBUMIN / CREATININE URINE RATIOon 33-40-0790Koonhye DL <= 20 mg/L (U) [Mass/Vol]22.6 mg/dLHigh0.0-1.9ProPike Community HospitalComment on above:Performed By: #### PAB #### [facility] ([facility]) [address] [place] [address] VIRMALB/CREAT VNTZG406.3 mg/gHigh0.0-30.0Pike Community HospitalComment on above:Performed By: #### PAB #### [facility] ([facility]) [address] [place] [address] VIRURINE CREATININE,RDM83.62 mg/dLNormalPike Community HospitalComment on above:Performed By: #### PAB #### [facility] ([facility]) [address] [place] [address] VIROrder Comment: Nephrotic Syndrome is associated with ratios >3.5MICROSCOPIC URINEon 17-33-5988ODTHOKSqwdmgqSgyhnvsnSxttDqnHbfewi [place] HospitalComment on above:Performed By: #### PAB #### [facility] ([facility]) [address] [place] [address] VIROrder Comment: Urine received without preservative. Delays in transport may affect results. Interpret with caution. A clinical correlation is recommended.Performed By: #### BMP #### [facility] ([facility]) [address] [place] [address] VIRR.B.CYGKC1Gyqvsq1-3GftHpdfzq [place] HospitalComment on above:Performed By: #### PAB #### [facility] ([facility]) [address] [place] [address] VIRW.B.ISPRS94Qbte6-2DebQkbobkOhio Valley HospitalComment on above: Performed By: #### PAB #### [facility] ([facility]) [address] [place] [address] VIRMagnesiumon 16-58-7157Srlzkbdsmqddui and review of laboratory resultsNoFormerly Grace Hospital, later [facility] Healthcare System MorgantonMagnesium [Mass/Vol]2.3 mg/dL1.8 - 2.6 mg/dLHighland District HospitalMicroalbumin - Albumin: Creatinine Urine Ratio on 77-03-0956Lffyscn DL <= 20 mg/L (U) [Mass/Vol]22.6 mg/dLHigh0.0 - 1.9 mg/dL [facility] HospitalAlbumin/Creatinine DL <= 1.0 mg/L (U) [Ratio]270.3 mg/g High0.0 - 30.0 mg/gPrPike Community HospitalMicroscopic, urineon 11-28-2024 Interpretation and review of laboratory resultsAbU.S. Army General Hospital No. 1 Mucus Ql (Urine sed)PresentAbnoMiddletown State HospitalRBC Auto (Urine sed) [#/Area][facility] Hospital - CantonWBC Auto (Urine sed) [#/Area]26Ssnd9 - 5PGeisinger-Bloomsburg HospitalNo Panel Informationon 60-64-3087Kvabpwmrseokcu and review of laboratory resultsAbRogers Memorial Hospital - MilwaukeePROTEIN CREAT RATIOon 11-28-2024U/PRO/WINDOWS SECURITY ANALYST RATIO CALC1.52High<=0.20[facility] on above:Order Comment: Nephrotic Syndrome is associated with ratios >3.5Performed By: #### PAB #### [facility] ([facility]) [address] [place] [address] VIRURINE PROTEIN, RANDOM (MG/L)1270 mg/LHigh<120ProPike Community HospitalComment on above:Order Comment: Nephrotic Syndrome is associated with ratios >3.5Performed By: #### PAB #### [facility] ([facility]) [address] [place] [id number] VIRProtein creat ratioon [id number] (U) [Mass/Vol]1270 mg/LHighNINF - 120 mg/LProMedica Health SystemProtein/Creatinine (U) [Ratio]1.52 HighNINF - 0.20ProMedica Health SystemProMediid Health SystemSODIUM, URINE, RANDOMon 80-92-7108Tbytnu (U) [Moles/Vol]20 mmol/LNormalProUniversity Hospitals Beachwood Medical Center HospitalComment on above:Performed By: #### PAB #### [facility] ([facility]) [address] [place] [address] VIRSodium, urine, randomon 78-84-5650Glszzl (U) [Moles/Vol]20 mmol/LProMedica Health SystemUREA RANDOM, URINEon [id number] UREA NITROGEN,DITDEK294 mg/dLNormalPike Community HospitalComment on above: Performed By: #### PAB #### [facility] ([facility]) [address] [place] [address] VIRURINALYSISon 82-83-1609Srnlfwgdg Ql (U)NegativeNormal NegativePike Community HospitalComment on above:Order Comment: Urine received without preservative. Delays in transport may affect results. Interpret with caution. A clinical correlation is recommended.Performed By: #### BMP #### [facility] ([facility]) [address] [place] [address] VIRBLOOD/HGBSmallAbnormalNegativeHolzer Hospital Hospital Comment on above:Order Comment: Urine received without preservative. Delays in transport may affect results. Interpret with caution. A clinical correlation is recommended.Performed By: #### BMP #### [facility] ([facility]) [address] [place] [address] VIRColor (U)YellowNormalYellowProPike Community HospitalComment on above:Order Comment: Urine received without preservative. Delays in transport may affect results. Interpret with caution. A clinical correlation is recommended.Performed By: #### BMP #### [facility] ([facility]) [address] [place] [address] VIRGlucose Ql (U)500 mg/dLAbnormalNegativePike Community HospitalComascension macomb on above:Order Comment: Urine received without preservative. Delays in transport may affect results. Interpret with caution. A clinical correlation is recommended.Performed By: #### BMP #### [facility] ([facility]) [address] [place] [address] VIRHyaline casts LM Ql (Urine sed)6Dslgge1-3LdxLzujqv Corey HospitalComascension [place] on above:Order Comment: Urine received without preservative. Delays in transport may affect results. Interpret with caution. A clinical correlation is recommended.Performed By: #### BMP #### [facility] ([facility]) [address] [place] [address] VIRKetones Ql (U)NegativeNormalNegativePike Community HospitalComascension macomb on above:Order Comment: Urine received without preservative. Delays in transport may affect results. Interpret with caution. A clinical correlation is recommended.Performed By: #### BMP #### [facility] ([facility]) [address] [place] [address] VIRLeukocyte esterase Test strip Ql (U)NegativeNormalNegative [facility] Corey HospitalComascension [place] on above:Order Comment: Urine received without preservative. Delays in transport may affect results. Interpret with caution. A clinical correlation is recommended.Performed By: #### BMP #### [facility] ([facility]) [address] [place] [address] VIRNitrite Ql (U)NegativeNormalNegativeProPike Community HospitalComment on above:Order Comment: Urine received without preservative. Delays in transport may affect results. Interpret with caution. A clinical correlation is recommended.Performed By: #### BMP #### [facility] ([facility]) [address] [place] [address] VIRPH,URINE5.1Jvmteu2.0-8.5POhio Valley HospitalComment on above:Order Comment: Urine received without preservative. Delays in transport may affect results. Interpret with caution. A clinical correlation is recommended.Performed By: #### BMP #### [facility] ([facility]) [address] [place] [address] VIRProtein Ql (U)50 mg/dLAbnormalNegativePike Community HospitalComascension macomb on above:Order Comment: Urine received without preservative. Delays in transport may affect results. Interpret with caution. A clinical correlation is recommended.Performed By: #### BMP #### [facility] ([facility]) [address] [place] [address] VIRR.B.CELLS<^2Qbeuva8-1YgrLlercdOhio Valley HospitalComment on above:Order Comment: Urine received without preservative. Delays in transport may affect results. Interpret with caution. A clinical correlation is recommended.Performed By: #### BMP #### [facility] ([facility]) [address] [place] [address]8816 VIRSpecific gravity (U) [Rel density]1.219Qcmoti7.003-1.035 [facility] Corey HospitalComment on above:Order Comment: Urine received without preservative. Delays in transport may affect results. Interpret with caution. A clinical correlation is recommended.Performed By: #### BMP #### [facility] ([facility]) [address] [place] [address] VIRSQUAMOUS AEOQPLFWXU8Tkujwz5-9EixLltmai [facility] Comment on above:Order Comment: Urine received without preservative. Delays in transport may affect results. Interpret with caution. A clinical correlation is recommended.Performed By: #### BMP #### [facility] ([facility]) [address] [place] [address] VIRTURBIDITYClearNormalClearPike Community HospitalComascension macomb on above:Order Comment: Urine received without preservative. Delays in transport may affect results. Interpret with caution. A clinical correlation is recommended.Performed By: #### BMP #### [facility] ([facility]) [address] [place] [address] VIRUROBILINOGEN<1.1 eu/dLNormal<1.1 eu/dLProPike Community HospitalComascension macomb on above:Order Comment: Urine received without preservative. Delays in transport may affect results. Interpret with caution. A clinical correlation is recommended.Performed By: #### BMP #### [facility] ([facility]) [address] [place] [address] VIRW.B.IVCJP86Ejbw2-1FgtFoltfx Corey HospitalComascension [place] on above: Order Comment: Urine received without preservative. Delays in transport may affect results. Interpret with caution. A clinical correlation is recommended. Performed By: #### BMP #### [facility] ([facility]) [address] [place] [address] VIRURINE CREATININE,RANDOMon 87-30-3831MPZWF CREATININE,RDM 85.13 mg/dLNoalPike Community HospitalComascension macomb on above:Performed By: #### PAB #### [facility] ([facility]) [address] [place] [address]53 VIRUS RETROPERITONEAL COMPLETEon 35-98-0457LK RETROPERITONEAL COMPLETEUS RETROPERITONEAL COMPLETE US RETROPERITONEAL COMPLETE HISTORY: Acute kidney injury. Chronic kidney disease. COMPARISON: None TECHNIQUE: Grayscale and color Doppler sonographic images of the urinary bladder and bilateral kidneys. FINDINGS: Suboptimal evaluation due to body habitus, overlying bowel gas and tolerance for changing positionssecondary to hip pain. Right kidney: * 9.2 [...] Gen Webb MD on 11/28/2024 7:58 AM I, Jayden Fernandez MD have personally reviewed the image(s) and agree with and/or edited the report Finalized by Jayden Fernandez MD on 11/28/2024 10:14 AMNormalProDayton Children'S Hospitalca Paul HospitalUS Retroperitoneumon 08-44-5079UKVZEOMCBMBcyRnhlik Health System Radiology Study observation (narrative)[facility] Retroperitoneum Ordered By: Jayden Fernandez on 10-07-3762JckWedcozHighland District Hospital Work Phone: Urea random, urineon 64-44-6219Bgvi nitrogen (24H U) [Mass/Vol]607 mg/dLHighland District HospitalUrinalysisOrdered By: Violeta Mckeon on 99-95-0834Greiyjibm Ql (U)NegativeNegativeMercy Health St. [facility] Hospital System Color (U)YellowYellowMercy Health St. Joseph Warren Hospital SystemEpithelial cells Auto (Urine sed) [#/Area]10 - 5PSelect Medical Specialty Hospital - CantonGlucose (U) [Mass/Vol]500 mg/dLAbnormal NegativeHighland District HospitalHemoglobin Auto test strip Ql (U)SmallAbnormal NegativeHighland District HospitalHyaline casts (Urine sed) [#/Area]1 /[LPF]0 - 2 [facility] HospitalInterpretation and review of laboratory resultsAbnormal [facility] HospitalKetones (U) [Mass/Vol]NegativeNegativeMercy Health St. Joseph Warren Hospital SystemLeukocyte esterase Auto test strip Ql (U)NegativeNegativeHighland District HospitalMucus Ql (Urine sed)PresentAbnormalMary Imogene Bassett HospitalNitrite Auto test strip Ql (U)NegativeNegativeHighland District HospitalpH (U)5.5 [pH]5.0 - 8.5 [facility] SystemProtein (U) [Mass/Vol]50 mg/dLAbnormalNegativeHighland District HospitalRBC Auto (Urine sed) [#/Area]0 - 5PUNC Healthpecific gravity Refractometry automated (U) [Rel density]1.0181.003 - 1.035Highland District HospitalTurbidity Ql (U)ClearClearPSelect Medical Specialty Hospital - CantonUrobilinogen Qn (U){Kaushik'U}/dL<1.1 eu/dLHighland District HospitalWBC Auto (Urine sed) [#/Area] 03Mbbq9 - 5PBlack [facility] Hospital Urine Creatinine,randomon 05-20-3348Lvkoqpbtuo (U) [Mass/Vol]85.13 mg/dL Jeanes HospitalALBUMINon 83-54-8656Syavgmj [Mass/Vol]3.4 g/dLNormal3.2-5.3POhio Valley HospitalComment on above: Performed By: #### TSC #### [facility] ([facility]) [address] [place] [address] VIRAlbuminon 42-78-5775Rhvwwgc [Mass/Vol]3.4 g/dL3.2 - 5.3 g/dL [facility] HospitalB-TYPE NATRIURETIC PEPTIDEon 25-62-6383Lzldehhqfuk peptide B (Bld) [Mass/Vol]605 pg/mLHigh<=100Pike Community HospitalComment on above:Performed By: #### TSC #### [facility] ([facility]) [address] [place] [address] VIRB-type natriuretic peptideon 62-15-8587Sbepoxnoomibcg and review of laboratory resultsAbnormalHighland District HospitalNatriuretic peptide B (Bld) [Mass/Vol]605 pg/mLHighNINF - 100 pg/mLJeanes HospitalBASIC METABOLIC PANELon 12-05-0280Snvad gap [Moles/Vol]7 mmol/L Normal5-15Pike Community HospitalComment on above:Performed By: #### BMP ####[facility] ([facility])[address] [address] VIRCalcium [Mass/Vol]9.1 mg/dLNormal8.5-10.5POhio Valley Hospital Comment on above:Performed By: #### BMP ####[facility] ([facility])[address] [address] VIRChloride [Moles/Vol]105 mmol/L Zauwca65-467WvvBclabz [place] HospitalComment on above:Performed By: #### BMP ####[facility] ([facility])[address] [address] VIRCO2 [Moles/Vol]28 mmol/PIdcyvr19-35HicLlejlw [place] HospitalComment on above:Performed By: #### BMP ####[facility] ([facility])[address] [address] VIRCreatinine [Mass/Vol]2.53 mg/dLHigh 0.40-1.00ProPike Community HospitalComment on above:Result Comment: METHOD TRACEABLE TO IDMS STANDARDPerformed By: #### BMP ####[facility] ([facility])[address] [address] VIRGFR/1.73 sq M.predicted among non-blacks MDRD (S/P/Bld) [Vol rate/Area]19 mL/min/{1.73_m2} Low>=60ProPike Community HospitalComment on above:Result Comment: Reported eGFR is based on the CKD-EPI 1 equation that does not use a race coefficient.Performed By: #### BMP ####[facility] ([facility])[address] [address] VIRGlucose [Mass/Vol]151 mg/sSZkat38-35AyfGfyvce [place] HospitalComment on above:Performed By: #### BMP ####[facility] ([facility])[address] [address] VIRPotassium [Moles/Vol]4.5 mmol/LNormal3.5-5.0[facility] Comment on above:Performed By: #### BMP ####[facility] ([facility])[address] [facility] [address] [address] VIRSodium [Moles/Vol]140 mmol/L Fpodge576-276PoyTvztur [place] HospitalComment on above:Performed By: #### BMP ####[facility] ([facility])[address] [place] [address] [address] VIRUrea nitrogen [Mass/Vol]49 mg/dLHigh5-27[facility] Comment on above:Performed By: #### BMP ####[facility] ([facility])[address] [address] VIRBEDSIDE GLUCOSEon 11-27-2024 Glucose [Mass/Vol]290 mg/gEJtoq80-21HagYufnvfPike Community HospitalComment on above: Performed By: #### TSC #### [facility] ([facility]) [address] [place] [address] VIRGlucose [Mass/Vol]245 mg/rVBazz12-05FbuPqziirHighland District Hospital Comment on above:Performed By: #### BEDG ####[facility] ([facility])[address] [place] [address] VIRGlucose [Mass/Vol]174 mg/gPRjzq92-72 Pike Community HospitalComment on above:Performed By: #### BEDG ####[facility] ([facility])[address] [place] [address] VIRGlucose [Mass/Vol]147 mg/kWDvri62-25CdcJhpggvPike Community HospitalComment on above:Performed By: #### BEDG ####[facility] ([facility])[address] [place] [address] VIRBasic Metabolic Panelon 23-22-5645Wjorh gap [Moles/Vol]7 mmol/L5 - 15 mmol/LProMedica Health SystemCalcium [Mass/Vol]9.1 mg/dL8.5 - 10.5 mg/dL [facility] Health SystemChloride [Moles/Vol]105 mmol/L98 - 109 mmol/LProMedica Health SystemCO2 [Moles/Vol]28 mmol/L22 - 32 mmol/LProMedica Health System Creatinine [Mass/Vol]2.53 mg/dLHigh0.40 - 1.00 mg/dLMercy Health St. Joseph Warren Hospital SystemEGFR Non-Race Yrjgzulgw22Dwp- PINFProMedica [place] [facility] SystemGlucose [Mass/Vol]151 mg/dL High65 - 99 mg/dLMercy Health St. Joseph Warren Hospital SystemInterpretation and review of laboratory resultsAbnormalRegency Hospital Cleveland East Health SystemPotassium [Moles/Vol]4.5 mmol/L3.5 - 5.0 mmol/LProMedica Health SystemSodium [Moles/Vol]140 mmol/L134 - 146 mmol/L [facility] SystemUrea nitrogen [Mass/Vol]49 mg/dLHigh5 - 27 mg/dLHighland District HospitalBedside Glucose *Place/Obtain serum glucose if >500 per glucometer.on 47-79-2118Hsiqvgk [Mass/Vol]290 mg/zHLfxe73 - 99 mg/dLMercy Health St. Joseph Warren Hospital SystemInterpretation and review of laboratory resultsAbnormJefferson Abington Hospital SystemMercy Health St. [facility] SystemInterpretation and review of laboratory resultsAbnoLifecare Behavioral Health Hospital SystemMercy Health St. [facility] Hospital SystemGlucose [Mass/Vol] 147 mg/cYWjem19 - 99 mg/dLMercy Health St. Joseph Warren Hospital SystemInterpretation and review of laboratory resultsAbnoLifecare Behavioral Health Hospital SystemMercy Health St. [facility] Hospital SystemGlucose [Mass/Vol]174 mg/vZTgdm02 - 99 mg/dLMercy Health St. Joseph Warren Hospital SystemInterpretation and review of laboratory resultsAbMarshfield Medical Center - Ladysmith [place]usk County SystemCBC (NO DIFF)on 64-34-8245Kzqcdexrajk distribution width (RBC) [Ratio]12.6 %Wbyrfo43.5-15Pike Community HospitalComment on above:Performed By: #### CBCA #### [facility] ([facility]) [address] [place] [address] VIRHematocrit (Bld) [Volume fraction]32.1 %Dbs89-54RaqLawkue Paul HospitalComment on above:Performed By: #### CBCA #### [facility] ([facility]) [address] [place] [address] VIRHemoglobin (Bld) [Mass/Vol]11.0 g/dLLow11.7-15.5ProMedica Parlin HospitalComment on above:Performed By: #### CBCA #### [facility] ([facility]) [address] [place] [address] VIRMCH (RBC) [Entitic mass]33.3 siSszrjb31-47TwkEkkvcy [facility]lin HospitalComment on above:Performed By: #### CBCA #### [facility] ([facility]) [address] [place] [address] VIRMCHC (RBC) [Mass/Vol]34.2 g/gKBssjxz83-56CxsTzlqmp [facility] HospitalComment on above:Performed By: #### CBCA #### [facility] ([facility]) [address] [place] [address] VIRMCV (RBC) [Entitic vol]97 uUIrbeqs55-961AiwNxlpsn [facility] HospitalComment on above:Performed By: #### CBCA #### [facility] ([facility]) [address] [place] [address] VIRPlatelet mean volume (Bld) [Entitic vol]9.0 fLNormal7-12 [facility] Parlin HospitalComment on above:Performed By: #### CBCA #### [facility] ([facility]) [address] [place] [address] VIRPlatelets (Bld) [#/Vol]147 10*3/rZWey818-684UizQywhwc Paul HospitalComment on above:Performed By: #### CBCA #### [facility] ([facility]) [address] [place] [address] VIRRBC COUNT3.30 X10E12/LLow3.8-5.2POhio Valley Hospital Comment on above:Performed By: #### CBCA #### [facility] ([facility]) [address] [place] [address] VIRWBC (Bld) [#/Vol]8.1 10*3/uLNormal4-11P[facility] Community HospitalComment on above:Performed By: #### CBCA #### [facility] ([facility]) [address] [place] [address] VIRCBC without diffon 12-11-9157Ajnbtzkjmav distribution width (RBC) [Ratio]12.6 %11.5 - 15 %[facility] District HospitalHematocrit (Bld) [Volume fraction]32.1 %Low35 - 47 %[facility] HospitalHemoglobin (Bld) [Mass/Vol]11 g/dLLow11.7 - 15.5 g/dLHighland District HospitalInterpretation and review of laboratory resultsAbnoWashington Regional Medical CenterH (RBC) [Entitic mass]33.3 pg 27 - 34 [facility] Medical CenterMCHC (RBC) [Mass/Vol]34.2 g/dL32 - 36 g/dL [facility] HospitalMCV (RBC) [Entitic vol]97 fL80 - 100 [facility]ondelet HealthPlatelet mean volume (Bld) [Entitic vol]9 fL7 - 12 [facility]ondelet HealthPlatelets (Bld) [#/Vol]147 10*3/uLLowHighland District HospitalRBC (Bld) [#/Vol]3.3 10*6/uLProvidence HospitalWBC LM Ql (Sput)8.1PGeisinger-Bloomsburg HospitalCK TOTALon 39-14-2096HQL44 U/BEmz81-880BlcMgllndPike Community HospitalComment on above:Performed By: #### TSC #### [facility] ([facility]) [address] [place] [address] VIRCK Totalon 10-68-0387HJ [Catalytic activity/Vol]18 U/LLow24 - 170 U/LProMedica Health SystemInterpretation and review of laboratory results AbnormalHighland District HospitalNo Panel Informationon 36-80-2372Bejddoxorpbryn and review of laboratory resultsNormalProHelen Keller Hospital Health SystemProCincinnati Children'S Hospital Medical Center SystemProCincinnati Children'S Hospital Medical Center SystemPARATHYROID HORMOME, INTACTon 55-08-9293WWH INTACT 116 pg/gJCwut02-58TneKwqcfj [place] HospitalComment on above:Performed By: #### PTH ####[facility] ([facility])[address] [facility] [address] [place] [address] VIRPHOSPHORUSon 16-31-5197Epvtmlwzs [Mass/Vol]4.3 mg/dLNormal2.4-4.9 [facility] HospitalComment on above:Performed By: #### PHOS ####[facility] ([facility])[address] [facility] [address], [place] [address] VIR PREALBUMINon 33-79-1114Khucmcbrjp [Mass/Vol]27 mg/gTNujkrr92-22VghKulial [place] HospitalComment on above:Performed By: #### PAB ####[facility] ([facility])[address] [facility] [address] [place] [address] VIRParathyroid Hormone, intacton 15-42-7833Lbkpqkoyiyktti and review of laboratory resultsAbnormal [facility] HospitalParathyrin.intact [Mass/Vol]116 pg/qIDdiy49 - 88 pg/mL [facility] SystemPhosphoruson 82-34-8637Mmvagaijb [Mass/Vol]4.3 mg/dL2.4 - 4.9 mg/dLHighland District HospitalPrealbuminon 11-27-2024 Interpretation and review of laboratory resultsNormalHighland District Hospital Prealbumin IA [Mass/Vol]27 mg/dL18 - 45 mg/dLHighland District HospitalURIC ACIDon 24-50-0103Isgss [Mass/Vol]6.6 mg/dLNormal2.6-7.2PO[facility] Shreveportica Parlin HospitalComment on above:Performed By: #### TSC #### [facility] ([facility]) [address] [place] [address] VIRUric acidon 40-98-6889Geukt [Mass/Vol]6.6 mg/dL2.6 - 7.2 mg/dLHighland District HospitalVITAMIN D 25 HYDROXYon 30-12-0253QMPQCWY D 25 HYD TOT23.1 ng/mLLow30.0-100.0P[facility] Community HospitalComment on above:Order Comment: Vitamin D status 25 [place] Vitamin D Deficiency <20 ng/mLInsufficiency 20-29 ng/mLSufficiency 30-100 ng/mLToxicity >100 ng/mLNOTE: A pediatric reference range has not been established by the poke in of this kit. The [place] [employer] recommends a Vitamin D level of = or >20ng/mL in infants and children.Performed By: #### VITD ####[facility] (TT)[address] [address] VIRVitamin D 25 hydroxyon 88-89-187638335104-eqmgiiufzjvoup D3 [Mass/Vol]23.1 ng/mLLow30.0 - 100.0 ng/mLHighland District HospitalInterpretation and review of laboratory results AbnormalBurnett Medical CenterXR CHEST 1 VWon 20-17-3751ZH CHEST 1 VWXR CHEST 1 VW EXAM: XR CHEST 1 VW CLINICAL INFORMATION: CHF. COMPARISON: 06/09/2016 FINDINGS: There are no pleural effusions. There are low lung volumes with some associated hypoventilatory changes. Next able heart IMPRESSION: 1. No acute cardiopulmonary disease. Finalized by Adolfo Jessica MD on 11/27/2024 9:55 PMNormalPike Community HospitalXR Chest Single viewon 79-46-3051PNORJIODQLJeaHanbee Health SystemRadiology Study observation (narrative)[facility] HospitalXR Chest Single viewOrdered By: Adolfo Jessica on 06-04-1722XcxXvpdoeHighland District Hospital Work Phone: XR HIP RT 2-3 VIEWS W OR WO PELVISon 85-26-8660GR HIP RT 2-3 VIEWS W OR WO PELVISXR HIP RT 2-3 VIEWS W OR WO PELVIS XR HIP RT 2-3 VIEWS W OR WO PELVIS HISTORY: Postop. Pain COMPARISON: none IMPRESSION: PELVIS: No displaced or pelvic fracture. Degenerative changes sacral iliac joints, lower lumbar spine. Left hip osteoarthrosis. Vascular calcifications. RIGHT HIP: Right hip arthroplasty, no gross hardware complication. Expected soft tissue emphysema, heterogeneity, anticipated in the recent postoperative setting. Finalized by Everett Rivera MD on 11/27/2024 5:33 PMNormalProMedica Parlin HospitalXR HIP RT 2-3 VIEWS W OR WO PELVISXR HIP RT 2-3 VIEWS W OR WO PELVIS XR HIP RT 2-3 VIEWS W OR WO PELVIS IMPRESSION: right dylon Intraoperative fluoroscopy provided. The reference air kerma was 1.35 mGy. Finalized by Boyd Thompson MD on 11/27/2024 2:34 PMNormalPike Community HospitalXR Pelvis and Hip - right 2 Viewson 13-59-1867ZQZWUTXAYAAzrSjpqij Health SystemRadiology Study observation (narrative)[facility] Medical CenterECTRAHeber Valley Medical Center SystemRadiology Study observation (narrative)[facility] HospitalXR Pelvis and Hip - right 2 ViewsOrdered By: Everett Rivera on 11-27-2024 [facility] Work Phone: XR Pelvis and Hip - right 2 ViewsOrdered By: Boyd Thompson on 39-17-1049StlTrpyntHighland District Hospital Work Phone: B-TYPE NATRIURETIC PEPTIDEon 75-30-4091Rcuwzwbomap peptide B (Bld) [Mass/Vol]382 pg/mLHigh<=100P[facility] HospitalComment on above:Performed By: #### CBCA #### [facility] [facility] ([facility]) [address] [place] [address] VIRB-type natriuretic peptideon 86-48-6517Fswzfexcmbwzwa and review of laboratory resultsAbnormalHighland District HospitalNatriuretic peptide B (Bld) [Mass/Vol]382 pg/mLHighNINF - 100 pg/mLHighland District HospitalProSelect Medical Specialty Hospital - TrumbullBASIC METABOLIC PANELon 24-95-3272Qiapc gap [Moles/Vol]11 mmol/L Normal5-15Pike Community HospitalComment on above:Performed By: #### BMP #### [facility] ([facility]) [address] [place] [address] VIRCalcium [Mass/Vol]9.3 mg/dLNormal8.5-10.5POhio Valley HospitalComment on above:Performed By: #### BMP #### [facility] ([facility]) [address] [place] [address] VIRChloride [Moles/Vol]103 mmol/WCtidth86-661XupPzrpfx [place] HospitalComment on above:Performed By: #### BMP #### [facility] ([facility]) [address] [place] [address] VIRCO2 [Moles/Vol]27 mmol/JIsgijo93-20QadAladppOhio Valley Hospital Comment on above:Performed By: #### BMP #### [facility] ([facility]) [address] [place] [address] VIRCreatinine [Mass/Vol]2.57 mg/dLHigh0.40-1.00ProPike Community HospitalComment on above:Result Comment: METHOD TRACEABLE TO IDMS STANDARD Performed By: #### BMP #### [facility] ([facility]) [address] [place] [address] VIRGFR/1.73 sq M.predicted among non-blacks MDRD (S/P/Bld) [Vol rate/Area]19 mL/min/{1.73_m2}Low>=60ProPike Community HospitalComment on above: Result Comment: Reported eGFR is based on the CKD-EPI 2020 equation that does not use a race coefficient.Performed By: #### BMP #### [facility] ([facility]) [address] [place] [address] VIRGlucose [Mass/Vol]151 mg/iRAaqs46-44ZrgWiyxtz [place] HospitalComment on above:Performed By: #### BMP #### [facility] ([facility]) [address] [place] [address] VIRPotassium [Moles/Vol]4.3 mmol/LNormal3.5-5.0ProUniversity Hospitals Beachwood Medical Center HospitalComment on above:Result Comment: R-Specimen moderately hemolyzed, results increasedPerformed By: #### BMP #### [facility] ([facility]) [address] [place] [address] VIRSodium [Moles/Vol]141 mmol/EHkelmg522-627VxnCfjjeg [place] HospitalComment on above:Performed By: #### BMP #### [facility] ([facility]) [address] [place] [address] VIRUrea nitrogen [Mass/Vol]50 mg/dLHigh5-27ProUniversity Hospitals Beachwood Medical Center HospitalComment on above:Performed By: #### BMP #### [facility] ([facility]) [address] [place] [address] VIRAnion gap [Moles/Vol]9 mmol/LNormal5-15ProFormerly [facility] Adventist HospitalComment on above:Performed By: #### NORA, 3016-3, LIVR, BMP #### [facility] ([id number]) [address] [place] [address] #### HA1C, 91495-8 #### [facility] ([id number]) [address] [place], [place] [address]Lmxcwit [Mass/Vol]9.3 mg/dLNormal8.5-10.5ProMedica [facility] Francisco Chinese HospitalComment on above:Performed By: #### NORA, 3016-3, LIVR, BMP #### [facility] ([id number]) [address] [place] [address] #### PABLO [id number] #### [facility] ([id number]) [address] [place] [address], [address] [place], [place] [address]Xplykztl [Moles/Vol]100 mmol/SEhbeou90-026RjhFotcozAdena Health SystemComment on above:Performed By: #### NORA, 6-3, LIVR, BMP #### [facility] ([id number]) [address] [place] [address] #### PABLO [id number] #### [facility] ([id number]) [address] [place] [address], [address] [place], [place] [address]JP1 [Moles/Vol]27 mmol/DGfiotm89-90HkzNxjmrySalem Regional Medical Center Comment on above:Performed By: #### NORA, 6-3, LIVEva, BMP #### [facility] ([id number]) [address] [place] [address] #### PABLO 59691-9 #### [facility] ([id number]) [address] [place] [address], [address] [place], [place] [address]Klqzxqcbhb [Mass/Vol]2.79 mg/dLHigh0.40-1.00Adena Health SystemComment on above:Result Comment: METHOD TRACEABLE TO IDMS STANDARD Performed By: #### NORA, 6-3, LIVR, BMP #### [facility] ([id number]) [address] [place] [address] #### PABLO, 55550-5 #### [facility] ([id number]) [address] [place] [address], [address] [place], [place] [address]WZI/1.73 sq M.predicted among non-blacks MDRD (S/P/Bld) [Vol rate/Area]17 mL/min/{1.73_m2}Low>=60ProFormerly [facility]plex Adventist HospitalComment on above: Result Comment: eGFR not reported due to non-numeric value for Creatinine. Reported eGFR is based on the CKD-EPI 2020 equation that does not use a race coefficient.Performed By: #### NORA 3, JOHNNY SERRANO #### [facility] ([id number]) [address] [place] [address] #### PABLO 65483-0 #### [facility] ([id number]) [address], [address] [place], [place] [address]Iarimas [Mass/Vol]252 mg/tOEoov20-59XldOnlyhgAdena Health System Comment on above:Performed By: #### NORA 3, JOHNNY SERRANO #### [facility] ([id number]) [address] [place] [address] #### PABLO 86628-6 #### [facility] ([id number]) [address], [address] [place], [place] [address]Dgwvovuhh [Moles/Vol]3.8 mmol/LNormal3.5-5.0ProFormerly [facility] Adventist HospitalComment on above:Performed By: #### NORA 3, ZACH BMP #### [facility] ([id number]) [address] [place] [address] #### PABLO [id number] #### [facility] ([id number]) [address], [address] [place], [place] [address]Enbnbs [Moles/Vol]136 mmol/UGohipk370-383TfoJtvbzg [facility]ont HospitalComment on above:Performed By: #### NORA 3, LIVEva, BMP #### [facility] ([id number]) [address] [place] [address] #### PABLO 27188-0 #### [facility] ([id number]) [address], [address] [place], [place] [address]Owdk nitrogen [Mass/Vol]51 mg/dLHigh5-27ProFormerly [facility] Adventist HospitalComment on above:Performed By: #### NORA, 3016-3, JOHNNY SERRANO #### [facility] ([id number]) [address] [place] [address], [place] [address] #### HA1C, 79620-7 #### [facility] ([id number]) [address] [place], [place] [address]OIVUREP GLUCOSEon 44-64-1796Wkyhvvj [Mass/Vol]231 mg/fORuau45-57 [facility] Community HospitalComment on above:Performed By: #### CBCA #### [facility] ([facility]) [address] [place] [address] VIRGlucose [Mass/Vol]122 mg/uJBnkm44-62MlvFvfvqvPike Community HospitalComment on above:Performed By: #### NORA #### [facility] ([facility]) [address] [place] [address] VIRBasic Metabolic Panelon 55-70-4243Ltlaq gap [Moles/Vol]11 mmol/L5 - 15 mmol/LProMedica Health SystemCalcium [Mass/Vol]9.3 mg/dL8.5 - 10.5 mg/dLProHelen Keller Hospital Health SystemChloride [Moles/Vol]103 mmol/L98 - 109 mmol/L [facility] Hospitaledic Health SystemCO2 [Moles/Vol]27 mmol/L22 - 32 mmol/LProMedica Health SystemCreatinine [Mass/Vol]2.57 mg/dLHigh0.40 - 1.00 mg/dLProDayton Children'S Hospitalca Health SystemEGFR Non-Race Cgynectgy85Sff- PINFProMedica Health SystemGlucose [Mass/Vol]151 mg/oSAqvq48 - 99 mg/dLProHelen Keller Hospital Health SystemPotassium [Moles/Vol] 4.3 mmol/L3.5 - 5.0 mmol/LProMedica Health SystemSodium [Moles/Vol]141 mmol/L134 - 146 mmol/LProMedica Health SystemUrea nitrogen [Mass/Vol]50 mg/dLHigh5 - 27 mg/dLHighland District HospitalBedside Glucose *Place/Obtain serum glucose if >500 per glucometer.on 74-46-5339Igcukyk [Mass/Vol]231 mg/xYZpqs68 - 99 mg/dL [facility] HospitalInterpretation and review of laboratory resultsAbnormal Jeanes HospitalGlucose [Mass/Vol]122 mg/nNFbbv25 - 99 mg/dLHighland District HospitalInterpretation and review of laboratory results AbnormalJeanes HospitalCBC WITH AUTO DIFFERENTIAL on 11-81-8022UXYSMRZPA ABSOLUTE COUNT (10*3/UL) BY AUTOMATED COUNT0.0 10*3/uL Normal0.0-0.2POhio Valley HospitalComment on above:Performed By: #### CBCA #### [facility] ([facility]) [address] [place] [address] VIRBASOPHILS RELATIVE PERCENT BY AUTOMATED COUNT0.3 %Normal [facility] Community HospitalComment on above:Performed By: #### CBCA #### [facility] ([facility]) [address] [place] [address] VIRCELLAVISION DIFFERENTIAL TYPEAUTOMATED DIFFERENTIALNoUniversity Hospitals Geauga Medical CenterComment on above:Performed By: #### CBCA #### [facility] ([facility]) [address] [place] [address] VIREosinophils (Bld) [#/Vol]0.1 10*3/uLNormal0.0-0.4P[facility] Community HospitalComment on above:Performed By: #### CBCA #### [facility] ([facility]) [address] [place] [address] VIREOSINOPHILS RELATIVE PERCENT BY AUTOMATED COUNT0.6 %Normal [facility] Community HospitalComascension macomb on above:Performed By: #### CBCA #### [facility] ([facility]) [address] [place] [address] VIRErythrocyte distribution width (RBC) [Ratio]12.6 %Normal 11.5-15ProMedica [facility]lin HospitalComment on above:Performed By: #### CBCA #### [facility] ([facility]) [address] [place] [address] VIRHematocrit (Bld) [Volume fraction]34.6 %Yip19-02SajLyivsy [facility] HospitalComment on above:Performed By: #### CBCA #### [facility] ([facility]) [address] [place] [address] VIRHemoglobin (Bld) [Mass/Vol]11.8 g/yKHleakl04.7-15.5ProMedica [facility] HospitalComment on above:Performed By: #### CBCA #### [facility] ([facility]) [address] [place] [address] VIRLYMPHOCYTES ABSOLUTE COUNT (10*3/UL) BY AUTOMATED COUNT0.8 10*3/uLLow1.0-3.5ProMedParkview Health Montpelier Hospital HospitalComment on above:Performed By: #### CBCA #### [facility] ([facility]) [address] [place] [address] VIRLYMPHOCYTES RELATIVE PERCENT BY AUTOMATED COUNT6.8 %Normal [facility]ica [facility] HospitalComment on above:Performed By: #### CBCA #### [facility] ([facility]) [address] [place] [address] VIRMCH (RBC) [Entitic mass]32.5 pvLbapye99-33AbjGgiydm Paul HospitalComment on above:Performed By: #### CBCA #### [facility] ([facility]) [address] [place] [address] VIRMCHC (RBC) [Mass/Vol]34.0 g/wNBvafey20-11IplIbbxem Paul HospitalComment on above:Performed By: #### CBCA #### [facility] ([facility]) [address] [place] [address] VIRMCV (RBC) [Entitic vol]96 gXGcwijz92-037NfoGdhizt [facility] HospitalComment on above:Performed By: #### CBCA #### [facility] ([facility]) [address] [place] [address] VIRMONOCYTES ABSOLUTE COUNT (10*3/UL) BY AUTOMATED COUNT1.0 10*3/uLHigh0.0-0.9ProUniversity Hospitals Beachwood [facility] Center HospitalComment on above:Performed By: #### CBCA #### [facility] ([facility]) [address] [place] [address] VIRMONOCYTES RELATIVE PERCENT BY AUTOMATED COUNT7.7 %Normal [facility] HospitalComment on above:Performed By: #### CBCA #### [facility] ([facility]) [address] [place] [address] VIRNEUTROPHILS ABSOLUTE COUNT BY AUTOMATED COUNT10.5 10*3/uL High1.5-6.6ProUniversity Hospitals Beachwood [facility] Center HospitalComment on above:Performed By: #### CBCA #### [facility] ([facility]) [address] [place] [address] VIRNEUTROPHILS RELATIVE PERCENT BY AUTOMATED COUNT84.6 %Normal [facility] HospitalComment on above:Performed By: #### CBCA #### [facility] ([facility]) [address] [place] [address] VIRPlatelet mean volume (Bld) [Entitic vol]9.1 fLNormal7-12 ProMMcKitrick Hospital HospitalComment on above:Performed By: #### CBCA #### [facility] ([facility]) [address] [place] [address] VIRPlatelets (Bld) [#/Vol]204 10*3/aCPqywkp353-467FwnIccltt [place] HospitalComment on above:Performed By: #### CBCA #### [facility] ([facility]) [address] [place] [address] VIRRBC COUNT3.62 X10E12/LLow3.8-5.2POhio Valley Hospital Comment on above:Performed By: #### NORA #### [facility] ([facility]) [address] [place] [address] VIRWBC (Bld) [#/Vol]12.4 10*3/uLHigh4-11ProMedica Corey HospitalComment on above:Performed By: #### NORA #### [facility] ([facility]) [address] [place] [address] VIRBASOPHILS ABSOLUTE COUNT (10*3/UL) BY AUTOMATED COUNT0.0 10*3/uLNormal0.0-0.2PSalem Regional Medical CenterComment on above:Performed By: #### NORA 3016-3, LIVR, BMP #### [facility] ([id number]) [address] [place], [place] [address] #### PABLO 49482-3 #### [facility] ([id number]) [address] [place], [place] [address]HKSZWVAUU RELATIVE PERCENT BY AUTOMATED COUNT0.3 %Normal [facility] Health SystemComment on above:Performed By: #### NORA 3016-3, LIVR, BMP #### [facility] ([id number]) [address] [place] [address] #### PABLO [id number] #### [facility] ([id number]) [address] [place], [place] [address]EWVJCNPYSLD DIFFERENTIAL TYPEAUTOMATED DIFFERENTIALNormal [facility] Health SystemComment on above:Performed By: #### NORA, 6-3, LIVR, BMP #### [facility] ([id number]) [address] [place] [address] #### PABLO 91009-3 #### [facility] ([id number]) [address] [place] [address], [address] [place], [place] [address]Xkgrtagxrqv (Bld) [#/Vol]0.1 10*3/uLNormal0.0-0.4Adena Health SystemComment on above:Performed By: #### NORA, 6-3, LIVR, BMP #### [facility] ([id number]) [address] [place] [address] #### PABLO 37624-5 #### [facility] ([id number]) [address] [place] [address], [address] [place], [place] [address]IOCNZAYXHJJ RELATIVE PERCENT BY AUTOMATED COUNT1.1 %Normal ProMHighland Springs Surgical CenterComment on above:Performed By: #### NORA, 63, LIVR, BMP #### [facility] ([id number]) [address] [place] [address] #### PABLO, 29567-0 #### [facility] ([id number]) [address] [place] [address], [facility] [address] [place], [place] [address]Yeneoqfcpzf distribution width (RBC) [Ratio]12.9 %Mospmu82.5-15 ProMHighland Springs Surgical CenterComment on above:Performed By: #### NORA, 3015-3, LIVR, BMP #### [facility] ([id number]) [address] [place] [address] #### PABLO, 89438-2 #### [facility] ([id number]) [address] [place] [address], [address] [place], [place] [address]Psdukkjusg (Bld) [Volume fraction]36.1 %Srsmvj16-14BgnEffhutFormerly [facility] Adventist HospitalComment on above:Performed By: #### NORA, 6-3, LIVR, BMP #### [facility] ([id number]) [address] [place] [address] #### PABLO 48038-5 #### [facility] ([id number]) [address] [place], [place] [address]Xczmdcyjoi (Bld) [Mass/Vol]12.3 g/jFLzrpah13.7-15.5PSalem Regional Medical CenterComment on above:Performed By: #### NORA, 3015-3, LIVR, BMP #### [facility] ([id number]) [address] [place] [address] #### PABLO 89649-5 #### [facility] ([id number]) [address] [place], [place] [address]MYYCVPKRILQ ABSOLUTE COUNT (10*3/UL) BY AUTOMATED COUNT0.5 10*3/uLLow1.0-3.5PSalem Regional Medical CenterComment on above:Performed By: #### NORA, 3015-3, LIVR, BMP #### [facility] ([id number]) [address] [place] [address] #### PABLO 89175-0 #### [facility] ([id number]) [address] [place], [place] [address]DSCRBNRPJVG RELATIVE PERCENT BY AUTOMATED COUNT5.3 %Normal [facility] HospitalComment on above:Performed By: #### NORA, 3015-3, LIVR, BMP #### [facility] ([id number]) [address] [place] [address] #### PABLO 51413-9 #### [facility] ([id number]) [address] [place], [place] [address]MZK (RBC) [Entitic mass]32.3 seUkrgpw00-15CngLpamoo [facility] Chinese HospitalComment on above:Performed By: #### CBCIsrrael, 3016-3, LIVR, BMP #### [facility] ([id number]) [address] [place] [address] #### PABLO 59079-0 #### [facility] ([id number]) [address] [place], [place] [address]WPVL (RBC) [Mass/Vol]34.0 g/dCFblcuw77-75EdgVgbgikFormerly [facility] HospitalComment on above:Performed By: #### CBCA, 3016-3, LIVR, BMP #### [facility] ([id number]) [address] [place] [address] #### PABLO [id number] #### [facility] ([id number]) [address] [place], [place] [address]FIM (RBC) [Entitic vol]95 fFNuixmd04-387AmyLbamdj [facility]ont HospitalComment on above:Performed By: #### CBCA, 3015-3, LIVR, BMP #### [facility] ([id number]) [address] [place] [address] #### PABLO 17998-6 #### [facility] ([id number]) [address] [place], [place] [address]RQPLAVQDI ABSOLUTE COUNT (10*3/UL) BY AUTOMATED COUNT0.5 10*3/uL Normal0.0-0.9Adena Health SystemComment on above:Performed By: #### CBCA, 3016-3, LIVR, BMP #### [facility] ([id number]) [address] [place] [address] #### PABLO, 11970-4 #### [facility] ([id number]) [address] [place], [place] [address]JFCHJUZRN RELATIVE PERCENT BY AUTOMATED COUNT5.8 %Normal ProMHighland Springs Surgical CenterComment on above:Performed By: #### CBCIsrrael, 3016-3, LIVR, BMP #### [facility] ([id number]) [address] [place] [address] #### PABLO, 22742-8 #### [facility] ([id number]) [address] [place], [place] [address]KJFMSUAEHYX ABSOLUTE COUNT BY AUTOMATED COUNT8.4 10*3/uLHigh 1.5-6.6Pro[facility] Chinese HospitalComment on above:Performed By: #### NORA, 3016- 3, LIVR, BMP #### [facility] ([id number]) [address] [place] [address] #### PABLO 69524-4 #### [facility] ([id number]) [address] [place], [place] [address]VVKAQLPPEGU RELATIVE PERCENT BY AUTOMATED COUNT87.5 %Normal [facility] Health SystemComascension macomb on above:Performed By: #### NORA, 3016-3, LIVR, BMP #### [facility] ([id number]) [address] [place] [address] #### PABLO 59848-8 #### [facility] ([id number]) [address], [address] [place], [place] [address]Tjdpzyii mean volume (Bld) [Entitic vol]8.5 fLNormal7-12 [facility] SystemComment on above:Performed By: #### NORA, 3016-3, LIVR, BMP #### [facility] ([id number]) [address] [place] [address] #### PABLO, 64568-7 #### [facility] ([id number]) [address], [address] [place], [place] [address]Yiyzszxvv (Bld) [#/Vol]208 10*3/oKQemakr277-718CzvTwxgloAdena Health SystemComment on above:Performed By: #### NORA, 6-3, LIVR, BMP #### [facility] ([id number]) [address] [place] [address] #### PABLO 35418-0 #### [facility] ([id number]) [address] [place] [address], [address] [place] [address]JDX COUNT3.80 X10E12/LNormal3.8-5.2PS[facility] Comment on above:Performed By: #### NORA, 6-3, LIVR, BMP #### [facility] ([id number]) [address] [place] [address] #### PABLO 98005-4 #### [facility] ([id number]) [address] [place] [address], [address] [place] [address]BUL (Bld) [#/Vol]9.5 10*3/uLNormal4-11[facility] Comment on above:Performed By: #### NORA, 6-3, LIVR, BMP #### [facility] ([id number]) [address] [place] [address] #### PABLO, 36453-6 #### [facility] ([id number]) [address] [place] [address], [address] [place] [address]IMZ auto differentialon [id number] (Bld) [#/Vol]0 10*3/uL0.0 - 0.2 10*3/uLMercy Health St. [facility] SystemBasophils/100 WBC (Bld)0.3 % [facility] HospitalDifferential cell count method Nom (Bld)AUTOMATED DIFFERENTIALMercy Health St. Joseph [facility] Hospital SystemEosinophils (Bld) [#/Vol]0.1 10*3/uL0.0 - 0.4 10*3/uLProCincinnati Children'S Hospital Medical [facility] SystemEosinophils/100 WBC (Bld)0.6 %[facility] HospitalErythrocyte distribution width (RBC) [Ratio]12.6 %11.5 - 15 %[facility] HospitalHematocrit (Bld) [Volume fraction]34.6 %Low35 - 47 %[facility] HospitalHemoglobin (Bld) [Mass/Vol]11.8 g/dL11.7 - 15.5 g/dLHighland District HospitalInterpretation and review of laboratory resultsAbnormalHighland District HospitalLymphocytes (Bld) [#/Vol]0.8 10*3/uLLow1.0 - 3.5 10*3/uLHighland District HospitalLymphocytes/100 WBC (Bld)6.8 %[facility] HospitalMCH (RBC) [Entitic mass]32.5 pg27 - 34 [facility] CenterMCHC (RBC) [Mass/Vol]34 g/dL32 - 36 g/dLHighland District HospitalMCV (RBC) [Entitic vol]96 fL80 - 100 fL [facility] HospitalMonocytes (Bld) [#/Vol]1 10*3/uLHigh0.0 - 0.9 10*3/uL [facility] HospitalMonocytes/100 WBC (Bld)7.7 %[facility] Neutrophils (Bld) [#/Vol]10.5 10*3/uLHigh1.5 - 6.6 10*3/uLHighland District HospitalNeutrophils/100 WBC (Bld)84.6 %Highland District HospitalPlatelet mean volume (Bld) [Entitic vol]9.1 fL7 - 12 [facility] HealthPlatelets (Bld) [#/Vol]204 10*3/uLHighland District HospitalRBC (Bld) [#/Vol]3.62 10*6/uLLow High[facility] District HospitalWBC LM Ql (Sput)12.4HighHighland District HospitalCK TOTALon 03-43-9306OPP50 U/KUiifio91-612WtfJlcyicPike Community HospitalComment on above: Performed By: #### CPK #### [facility] ([facility]) [address] [place] [address] VIRCK Totalon 34-66-1058GC [Catalytic activity/Vol]28 U/L24 - 170 U/LProMedica Toledo Hospital SystemCT HIP RT WO CONTon 27-30-7646PW HIP RT WO CONTCT HIP RT WO CONT CT RIGHT HIP WITHOUT CONTRAST COMPARISON: Right hip radiographs 12/08/2024 HISTORY: hip fracture. TECHNIQUE: Unenhanced axial images of the right hip obtained with sagittal and coronal 2-D reformatted images. Automatic exposure control (AEC) was utilized. FINDINGS: Fat-containing [...] by Andrea Jimenez MD on 11/26/2024 5:29 PMNormalProPike Community HospitalCT Hip - right WO contraston 06-43-6579JFHVMMVDGEYkhVvgisl Health System Radiology Study observation (narrative)High[facility] District HospitalCT Hip - right WO contrastOrdered By: Andrea Jimenez on 45-37-8681LrhYbryqsHighland District Hospital Work Phone: FERRITINon 80-77-9127Rkkghuyq [Mass/Vol]32 ng/mLNormal 11-307ProPike Community HospitalComment on above:Performed By: #### FERR #### [facility] ([facility]) [address] [place] [address] VIRFOLATEon 59-93-6440GHGZM ACID>^25.0Normal>5.8ProPike Community HospitalComment on above:Performed By: #### FOLI #### [facility] ([facility]) [address] [place] [address] VIRFerritinon 25-66-7091Hgcatort [Mass/Vol]32 ng/mL11 - 307 ng/mLMercy Health St. Joseph Warren Hospital SystemFolateon 16-86-4046Yyuhrf [Mass/Vol]ng/mL5.8 - PINF ng/mLProCincinnati Children'S Hospital Medical Center SystemIRON AND TIBCon 59-51-7234Ooix [Mass/Vol]58 ug/dL Gtxckj46-056CixNsveumPike Community HospitalComment on above:Result Comment: R-Specimen moderately hemolyzed, results increasedPerformed By: #### CBCA #### [facility] ([facility]) [address] [place] [address] VIRIRON YPCKXDM715 ug/eLJtuqjv373-810OajHbifvePike Community Hospital Comment on above:Performed By: #### CBCA #### [facility] ([facility]) [address] [place] [address] VIRIRON GJKRBAQKXY54 % SEEMCXKMKMEwrpah56-52DiaDtqkwo [place] HospitalComment on above:Performed By: #### CBCA #### [facility] ([facility]) [address] [place] [address] VIRTransferrin [Mass/Vol]260 mg/tCUrrxpu861-853KfxPuinbwPike Community HospitalComment on above:Performed By: #### CBCA #### [facility] ([facility]) [address] [place] [address] VIRIron and TIBCon 56-41-0545Avui [Mass/Vol]58 ug/dL50 - 170 ug/dLHighland District HospitalIron binding capacity [Mass/Vol]364 ug/dL250 - 425 ug/dLHighland District HospitalIron saturation [Mass fraction]16ProSelect Medical Specialty Hospital - TrumbullTransferrin [Mass or moles/Vol]260 mg/dL168 - 336 mg/dLHighland District HospitalNo Panel Informationon 69-25-2278XoxLvlnthHighland District HospitalInterpretation and review of laboratory resultsAbnormalHighland District HospitalInterpretation and review of laboratory resultsNormalHighland District HospitalProCincinnati Children'S Hospital [facility] Center System ProMedica [facility] SystemPREALBUMINon 36-29-2939Evacupiqsp [Mass/Vol]29 mg/dL Ptafjm91-42UmyZxcrmb Parlin HospitalComment on above:Performed By: #### PAB #### [facility] ([facility]) [address] [place] [address] VIRPrealbumin [Mass/Vol]31 mg/uVXoupai02-04MukWtdett San Francisco Chinese HospitalComment on above:Performed By: #### CBCA, 3016-3, LIVR, BMP #### [facility] ([id number]) [address] [place] [address], [place] [address] #### HA1C, 51486-0 #### [facility] ([id number]) [address] [place], [place] [address]Fdqwhtjhfupx 20-99-0341Bzpegwqmqg [place] [Mass/Vol]29 mg/dL18 - 45 mg/dLProCincinnati Children'S Hospital Medical Center SystemRETICULOCYTESon 99-58-2443HDNQZTJEOUYO COUNT1.5 % Normal0.4-2.2ProMedica Corey HospitalComment on above:Performed By: #### RETIC #### [facility] ([facility]) [address] [place] [address] VIRReticulocyteson 44-16-9120Pdintinecgobjj and review of laboratory resultsNormalProCincinnati Children'S Hospital Medical Center SystemReticulocytes/100 RBC (Bld)1.5 % 0.4 - 2.2 %ProMedicCass Lake Hospital SystemSODIUM, URINE, RANDOMon 94-14-3685Jgjjuc (U) [Moles/Vol]49 mmol/LNormalProUniversity Hospitals Beachwood Medical Center HospitalComment on above:Performed By: #### CBCA #### [facility] ([facility]) [address] [place] [address] VIRSodium, urine, randomon 70-60-5300Izvfnl (U) [Moles/Vol]49 mmol/LProMedica Health SystemTYPE AND SCREENon 54-43-7422MWE_CALVUDSgbspj ProMMcKitrick Hospital HospitalComment on above:Performed By: #### TSC #### [facility] ([facility]) [address] [place] [address] VIRRH_INTEPPositiveNormalProMedica Parlin HospitalComment on above:Performed By: #### TSC #### [facility] ([facility]) [address] [place] [address] VIRABO_INTEPANormalProMedica Minneapolis HospitalComment on above: Performed By: #### NORA, 3016-3, LIVR, BMP #### [facility] ([id number]) [address] [place] [address], [place] [address] #### PABLO 57811-5 #### [facility] ([id number]) [address] [place], [place] [address]RH_INTEPPositiveNormalOhioHealth Grady Memorial Hospital HospitalComment on above:Performed By: #### NORA, 3016-3, LIVR, BMP #### [facility] ([id number]) [address] [place] [address], [place] [address] #### PABLO 62642-2 #### [facility] ([id number]) [address] [place], [place] [address]Qics and screen(includes indirect vikas)on 02-63-1443NSK and Rh group Nom (Bld)AProMedica Health SystemABO and Rh group Nom (Bld)Positive ProMMille Lacs Health System [facility] SystemBlood group antibody screen.cells I+II+III QlNegative ProMedica Health SystemProMedica Health SystemUREA RANDOM, URINEon 11-26-2024 URINE UREA NITROGEN,HDYODP879 mg/dLNormalProUniversity Hospitals Beachwood Medical Center HospitalComment on above:Performed By: #### NORA #### [facility] ([facility]) [address] [place] [address] VIRURINALYSISon 35-44-9766Upstikglr Ql (U)NegativeNormal NegativeProDayton Children'S Hospitalca Parlin HospitalComment on above:Order Comment: Urine received without preservative - delays in transport may affect results. Interpret with caution and clinical correlation is recommended.Performed By: #### CBCA #### [facility] ([facility]) [address] [place] [address] VIRBLOOD/HGBNegativeNormalNegativeHolzer Hospital Hospital Comment on above:Order Comment: Urine received without preservative - delays in transport may affect results. Interpret with caution and clinical correlation is recommended.Performed By: #### CBCA #### [facility] ([facility]) [address] [place] [address] VIRColor (U)YellowNormalYellowProUniversity Hospitals Beachwood Medical Center HospitalComment on above:Order Comment: Urine received without preservative - delays in transport may affect results. Interpret with caution and clinical correlation is recommended.Performed By: #### CBCA #### [facility] ([facility]) [address] [place] [address] VIRGlucose Ql (U)>1000 mg/dLAbnormalNegativeHolzer Hospital HospitalComment on above:Order Comment: Urine received without preservative - delays in transport may affect results. Interpret with caution and clinical correlation is recommended.Performed By: #### CBCA #### [facility] ([facility]) [address] [place] [address] VIRKetones Ql (U)NegativeNormalNegativeProUniversity Hospitals Beachwood Medical Center HospitalComment on above:Order Comment: Urine received without preservative - delays in transport may affect results. Interpret with caution and clinical correlation is recommended.Performed By: #### CBCA #### [facility] ([facility]) [address] [place] [address] VIRLeukocyte esterase Test strip Ql (U)SmallAbnormalNegative ProMedicTrinity Health System East Campus HospitalComment on above:Order Comment: Urine received without preservative - delays in transport may affect results. Interpret with caution and clinical correlation is recommended.Result Comment: High Concentrations of Glucose May Decrease the Reactivity of the Dipstick Leukocyte Test Pad.Performed By: #### CBCA #### [facility] ([facility]) [address] [place] [address] VIRNitrite Ql (U)NegativeNormalNegativeProPike Community HospitalComment on above:Order Comment: Urine received without preservative - delays in transport may affect results. Interpret with caution and clinical correlation is recommended.Performed By: #### CBCA #### [facility] ([facility]) [address] [place] [address] VIRPH,URINE6.7Qzohdq6.0-8.5ProMedica Corey HospitalComment on above:Order Comment: Urine received without preservative - delays in transport may affect results. Interpret with caution and clinical correlation is recommended.Performed By: #### CBCA #### [facility] ([facility]) [address] [place] [address] VIRProtein Ql (U)70 mg/dLAbnormalNegativePike Community HospitalComascension macomb on above:Order Comment: Urine received without preservative - delays in transport may affect results. Interpret with caution and clinical correlation is recommended.Performed By: #### CBCA #### [facility] ([facility]) [address] [place] [address] VIRR.B.CELLS<^9Jfgfeb7-4XjyPedmdjOhio Valley HospitalComascension macomb on above:Order Comment: Urine received without preservative - delays in transport may affect results. Interpret with caution and clinical correlation is recommended.Performed By: #### CBCA #### [facility] ([facility]) [address] [place] [address] VIRSpecific gravity (U) [Rel density]1.921Tqrnrn7.003-1.035 ProMedica Corey HospitalComascension mac[place] on above:Order Comment: Urine received without preservative - delays in transport may affect results. Interpret with caution and clinical correlation is recommended.Performed By: #### CBCA #### [facility] ([facility]) [address] [place] [address] VIRTURBIDITYHazyAbnormalClearProMedica Paul HospitalComascension [place] on above:Order Comment: Urine received without preservative - delays in transport may affect results. Interpret with caution and clinical correlation is recommended.Performed By: #### CBCA #### [facility] ([facility]) [address] [place] [address] VIRUROBILINOGEN<1.1 eu/dLNormal<1.1 eu/dLProPike Community HospitalComascension macomb on above:Order Comment: Urine received without preservative - delays in transport may affect results. Interpret with caution and clinical correlation is recommended.Performed By: #### CBCA #### [facility] ([facility]) [address] [place] [address] VIRW.B.NBZCB0Cdlf4-6SkkPufzcd[address] [place], [place] [address]Comascension [place] on above: Order Comment: Urine received without preservative - delays in transport may affect results. Interpret with caution and clinical correlation is recommended. Performed By: #### CBCA #### [facility] ([facility]) [address] [place] [address] VIRURINE CREATININE,RANDOMon 83-74-0578OHCPX CREATININE,RDM 72.60 mg/dLNoCrystal Clinic Orthopedic CenterComascension [place] on above:Performed By: #### CBCA #### [facility] ([facility]) [address] [place] [address] VIRUrea random, urineon 68-41-8147Jjtc nitrogen (24H U) [Mass/Vol]572 mg/dLProctor HospitalMedica Health SystemUrinalysisOrdered By: Chris Rodriguez on 93-15-0231Blukrcpqa Ql (U)NegativeNegativeProMedica Health SystemColor (U)Yellow YellowProMedica Health SystemGlucose (U) [Mass/Vol]mg/dLAbnormalNegative [facility] SystemHemoglobin Auto test strip Ql (U)NegativeNegative [facility] SystemInterpretation and review of laboratory resultsAbnormal ProMedica Health SystemKetones (U) [Mass/Vol]NegativeNegativeProMedica Health SystemLeukocyte esterase Auto test strip Ql (U)SmallAbnormalNegativeHighland District HospitalNitrite Auto test strip Ql (U)NegativeNegativeHighland District HospitalpH (U)6.5 [pH]5.0 - 8.5PSelect Medical Specialty Hospital - CantonProtein (U) [Mass/Vol]70 mg/dLAbnormalNegativeHighland District HospitalRBC Auto (Urine sed) [#/Area]0 - 5 [facility] Health Medical Centerpecific gravity Refractometry automated (U) [Rel density]1.011.003 - 1.035Highland District HospitalTurbidity Ql (U)HazyAbnormal ClearHighland District HospitalUrobilinogen Qn (U){Kaushik'U}/dL<1.1 eu/dLHighland District HospitalWBC Auto (Urine sed) [#/Area]8High0 - 5PSelect Medical Specialty Hospital - Canton ProMedicOhioHealth Marion General HospitalProCincinnati Children'S Hospital Medical Center SystemUrine Creatinine,Rdmon 11-26-2024 Creatinine (U) [Mass/Vol]72.6 mg/dLHighland District HospitalVITAMIN B12on 87-97-9835Hsmdwvudw (Vitamin B12) [Mass/Vol]275 pg/oDOcozyk601-129RxlJhxshs [place] HospitalComment on above:Performed By: #### B12 #### [facility] ([facility]) [address] [place] [address] VIRVITAMIN D 25 HYDROXYon 71-55-2724EKAUQDG D 25 HYD TOT27.1 ng/mLLow30.0-100.0Pike Community HospitalComment on above:Order Comment: Vitamin D status 25 [place] Vitamin D Deficiency <20 ng/mLInsufficiency 20-29 ng/mLSufficiency 30-100 ng/mLToxicity >100 ng/mLNOTE: A pediatric reference range has not been established by the poke in of this kit. The [place] [employer] recommends a Vitamin D level of = or >20ng/mL in infants and children.Performed By: #### CBCA #### [facility] (TT) [address] [place] [address] VIRVITAMIN D 25 HYD TOT27.2 ng/mLLow30.0-100.0A[facility]a Health SystemComment on above:Order Comment: Vitamin D status 25 [place] Vitamin D Deficiency <20 ng/mLInsufficiency 20-29 ng/mLSufficiency 30-100 ng/mLToxicity >100 ng/mLNOTE: A pediatric reference range has not been established by the poke in of this kit. The [place] [employer] recommends a Vitamin D level of = or >20ng/mL in infants and children.Performed By: #### CBCA, 3016-3, LIVR, BMP #### [facility] ([id number]) [address] [place] [address], [place] [address] #### HA1C, 34858-6 #### [facility] ([id number]) [address] [place], [place] [address]Vlkwszc B12on 61-01-2810Duvvhpkig (Vitamin B12) [Mass/Vol]275 pg/mL180 - 914 pg/mLHighland District HospitalVitamin D 25 hydroxyon - hydroxyvitamin D3 [Mass/Vol]27.1 ng/mLLow30.0 - 100.0 ng/mLMercy Health St. Joseph Warren Hospital SystemRegency Hospital Cleveland East Health SystemXR HIP RT 2-3 VIEWS W OR WO PELVISon 72-07-1360QU HIP RT 2-3 VIEWS W OR WO PELVISXR HIP RT 2-3 VIEWS W OR WO PELVIS CLINICAL INFORMATION: fall TECHNIQUE: XR HIP RT 2-3 VIEWS W OR WO PELVIS 3 views right hip were obtained. There is right subcapital femoral neck fracture with mild displacement. Pelvic ring otherwise intact. Left femoral neck unremarkable. IMPRESSION: Right subcapital femoral neck fracture. Finalized by Best Clark MD on 11/26/2024 1:09 PMNormalAdena Health SystemHEMOGLOBIN A1Con 56-79-8806Mmlfals [Mass/Vol]154 mg/dLNormalProFormerly Metroplex Adventist HospitalComment on above:Performed By: #### HA1C #### [facility] ([facility]) [address] [place] [address] AVGKfT7c (Bld) [Mass fraction]7.0 %High4.4-5.6ProFormerly Metroplex Adventist HospitalComment on above:Result Comment: ADA Guidelines Result HgbA1c Normal : less than 5.7 % Prediabetes : 5.7 % to 6.4 % Diabetes : > 6.4 % Use with caution in patients with abnormal hemoglobin variants as the half-life of red blood cells and in vivo glycation rates are affected.Performed By: #### HA1C #### [facility] ([facility]) [address] [place] [address] UNI03as 38-56-320589Mzdmogolg lab results from 08/20/2024: MD Dotty Valverde MA Renal function is stable. If she has responded to the increased lasix, then I will see her in 6 months. She should have a follow up with nephrology between now and then. Spoke with patient and she said her SOB is better. She does still have LE edema intermittently, she says depending on what she consumes. She hasn't noticed a change in her weight. 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 What would you like to do?NormalProtestant Hospital37on 50-13-6923291. Increase furosemide to 40 mg once daily. 2. Obtain BMP blood test in 1 month. 3. Follow-up in 6 months.NormalProtestant HospitalOffice Visiton 33-42-9005Etzngj-up [id number] Rivka Turner 1945 F Date Provider Department Center 07/21/2024 OBED MARCOS BH CARD [facility] Family History Problem Relation Age of Onset Breast cancer Mother Stroke Father Family Status - Relation Status Age at Mother Father Level of Service:70773 CA OFFICE/OUTPATIENT ESTABLISHED MOD MDM 30 [facility] HospitalOrders Onlyon 16-25-0975Ikkszz [id number] Janet Turnerjustin Arcos 1945 F Date Provider Department Center 07/18/2024 [id number], HISTORICAL BH CARD [facility] Family History Problem Relation Age of Onset Breast cancer Mother Stroke Father Family Status - Relation Status Age at Mother FatherNormalUniMercy Health Springfield Regional Medical CenterAmbulatory Visit Summaryon 57-98-4335Iyqlzxfrwx Visit SummaryAmbulatory Visit Summary RIVKA TURNER Isrrael :1945 Visit Date:07/12/2024 Ambulatory Visit Instructions Your Diagnosis Pain with urination Acute cystitis Your Care Team Attending Physician - Laurita Youty Primary Care Physician - AMADOR ABDALLA MD This Is Your Medications List acetaminophen-hydrocodone (acetaminophen-hydrocodone 325 mg-5 mg oral tablet) albuterol (Ventolin HFA 90 mcg/inh Aerosol) alprazolam (alprazolam 0.5 mg Tab) aspirin (aspirin 81 mg Oral EC Tab) atorvastatin (atorvastatin 40 mg Tab) buPROPion (Wellbutrin SR 150 mg Tab-ER) cholecalciferol (Vitamin D 1000 intl units Tab) fluticasone nasal (Flonase 0.05 mg/inh nasal spray) furosemide (furosemide 40 mg Tab) glipiZIDE (glipiZIDE 10 mg Tab) hydrALAZINE (hydrALAZINE 50 mg Tab) hydrochlorothiazide-losartan (Hyzaar 100 mg-25 mg oral tablet) metformin (metformin 500 mg ER Tab) montelukast (Singulair 10 mg Tab) nystatin topical (nystatin topical 100,000 units/g powder) ondansetron (Zofran 4 mg Tab) pantoprazole (Pantoprazole [address] Tab) paroxetine (Paxil 40 mg Tab) sucralfate (sucralfate tab) sulfamethoxazole-trimethoprim (Bactrim D.S. 800 mg-160 mg Tab) temazepam (Restoril 30 mg Cap) Procedures Performed Colonoscopy (02/09/2021), EGD - Esophagogastroduodenoscopy (02/09/2021), Biopsy of breast, CABG x 2- Coronary artery bypass grafts x 2, Cardiac catheterization, Cholecystectomy, Hysterectomy, Ovarian cystectomy. Discharge Vitals Temperature (Oral) 36.8 ???C Heart Rate (Peripheral) 45 Respiratory Rate 18 Blood Pressure 136/58 Height 162 cm Height 64 in Weight 79.6 kg Weight 175.488 lb BMI 30.33 What to do next You Need to Schedule the Following Appointments Follow Up with JOHN BARRIOS, [place] When: Where: [address] [place] [address] Medications What How Much When Why Instructions New sulfamethoxazole-trimethoprim (Bactrim D.S. 800 mg-160 mg Tab) 1 Tablets By Mouth Every 12 hours Pain with urination Acute cystitis Duration: 3 Days drink plenty of fluids - Make sure you provideurine specimen prior to taking 1st dose Pickup at [facility]/pharmacy #[id number] Unchanged acetaminophen-hydrocodone (acetaminophen-hydrocodone 325 mg-5 mg oral tablet) 1 Tablets By Mouth 2 times a day Unchanged albuterol (Ventolin HFA 90 mcg/ inh Aerosol) 2 Puffs Inhalation Every 4 hours Unchanged alprazolam (alprazolam 0.5 mg Tab) 1 Tablets By Mouth 3 times a day as needed for for anxiety Unchanged aspirin (aspirin 81 mg Oral EC Tab) 1 Tablets By Mouth Every day Unchanged atorvastatin (atorvastatin 40 mg Tab) 1 Tablets By Mouth Every day Unchanged buPROPion (Wellbutrin SR 150 mg Tab-ER) 1 Tablets By Mouth Every day Unchanged cholecalciferol (Vitamin D 1000 intl units Tab) 1 Tablets By Mouth Every day Unchanged fluticasone nasal (Flonase 0.05 mg/ inh nasal spray) 2 Sprays Nasal Inhalation Every day in each nostril Unchanged furosemide (furosemide 40 mg Tab) 1 Tablets By Mouth 2 times a day Unchanged glipiZIDE (glipiZIDE 10 mg Tab) 1 Tablets By Mouth Every day Unchanged hydrALAZINE (hydrALAZINE 50 mg Tab) 1 Tablets By Mouth 2 times a day Unchanged hydrochlorothiazide-losartan (Hyzaar 100 mg-25 mg oral tablet) 1 Tablets By Mouth Every day Unchanged metformin (metformin 500 mg ER Tab) 1 Tablets By Mouth 2 times a day Unchanged montelukast (Singulair 10 mg Tab) 1 Tablets By Mouth Every day Unchanged nystatin topical (nystatin topical 100,000 units/ g powder) 1 Application Topical 3 timesa day Unchanged ondansetron (Zofran 4 mg Tab) 1 Tablets By Mouth 4 times a day Unchanged pantoprazole (Pantoprazole [address] Tab) 1 Tablets By Mouth 2 times a day Unchanged paroxetine (Paxil 40 mg Tab) 1 Tablets By Mouth Every day Unchanged sucralfate (sucralfate tab) 30 tab(s) Unchanged temazepam (Restoril 30 mg Cap) 1 Capsules By Mouth Once a day (at bedtime) as needed for for sleep Pharmacy Information [facility]/pharmacy #[id number]: [address] [place], [place] [id number] [phone] Allergies [place] Prefilled Pen (Nausea) Cleocin HCl (Esophageal spasm) Compazine (Unknown) Flexeril (Itching) doxycycline (Diarrhea) penicillin (Itching) traZODone (Nausea) Problems Ongoing - Any problem that you are currently receiving treatment for. Bile reflux gastritis BMI 33.0-33.9,adult Bradycardia CAD (coronary artery disease) Change in bowel habits Chronic constipation Chronic diastolic heart failure CKD (chronic kidney disease) CVA (cerebrovascular accident) Diabetes Dyslipidemia Epigastric pain Fibromyalgia SCOTTY (generalized anxiety disorder) GERD (gastroesophageal reflux disease) HTN (hypertension) Hyperkalemia Incisional hernia Insomnia Irritable bowel Major depressive disorder Nausea Overflow incontinence Pulmonary HTN Seasonal allergic rhinitis Tubular adenoma of colon Vitamin D deficiency Historic (more content not included)...[facility] Ambulatory Visit SummaryAmbulatory Visit Summary RIVKA TURNER :1945 Visit Date:07/12/2024 Ambulatory Visit Instructions Your Diagnosis Pain with urination Acute cystitis Your Care Team Attending Physician - Rj SHULTZ, Vielka Primary Care Physician - AMADOR ABDALLA MD This Is Your Medications List acetaminophen-hydrocodone (acetaminophen-hydrocodone 325 mg-5 mg oral tablet) albuterol (Ventolin HFA 90 mcg/inh Aerosol) alprazolam (alprazolam 0.5 mg Tab) aspirin (aspirin 81 mg Oral EC Tab) atorvastatin (atorvastatin 40 mg Tab) buPROPion (Wellbutrin SR 150 mg Tab-ER) cholecalciferol (Vitamin D 1000 intl units Tab) fluticasone nasal (Flonase 0.05 mg/inh nasal spray) furosemide (furosemide 40 mg Tab) glipiZIDE (glipiZIDE 10 mg Tab) hydrALAZINE (hydrALAZINE 50 mg Tab) hydrochlorothiazide-losartan (Hyzaar 100 mg-25 mg oral tablet) metformin (metformin 500 mg ER Tab) montelukast (Singulair 10 mg Tab) nystatin topical (nystatin topical 100,000 units/g powder) ondansetron (Zofran 4 mg Tab) pantoprazole (Pantoprazole [address] Tab) paroxetine (Paxil 40 mg Tab) sucralfate (sucralfate tab) sulfamethoxazole-trimethoprim (Bactrim D.S. 800 mg-160 mg Tab) temazepam (Restoril 30 mg Cap) Procedures Performed Colonoscopy (02/09/2021), EGD - Esophagogastroduodenoscopy (02/09/2021), Biopsy of breast, CABG x 2- Coronary artery bypass grafts x 2, Cardiac catheterization, Cholecystectomy, Hysterectomy, Ovarian cystectomy. Discharge Vitals Temperature (Oral) 36.8 ???C Heart Rate (Peripheral) 45 Respiratory Rate 18 Blood Pressure 136/58 Height 162 cm Height 64 in Weight 79.6 kg Weight 175.488 lb BMI 30.33 What to do next You Need to Schedule the Following Appointments Follow Up with JOHN BARRIOS, CLINTON MUÑIZ When: Where: [address] [place] [address] Medications What How Much When Why Instructions New sulfamethoxazole-trimethoprim (Bactrim D.S. 800 mg-160 mg Tab) 1 Tablets By Mouth Every 12 hours Pain with urination Acute cystitis Duration: 3 Days drink plenty of fluids - Make sure you provideurine specimen prior to taking 1st dose Pickup at [facility]/pharmacy #[id number] Unchanged acetaminophen-hydrocodone (acetaminophen-hydrocodone 325 mg-5 mg oral tablet) 1 Tablets By Mouth 2 times a day Unchanged albuterol (Ventolin HFA 90 mcg/ inh Aerosol) 2 Puffs Inhalation Every 4 hours Unchanged alprazolam (alprazolam 0.5 mg Tab) 1 Tablets By Mouth 3 times a day as needed for for anxiety Unchanged aspirin (aspirin 81 mg Oral EC Tab) 1 Tablets By Mouth Every day Unchanged atorvastatin (atorvastatin 40 mg Tab) 1 Tablets By Mouth Every day Unchanged buPROPion (Wellbutrin SR 150 mg Tab-ER) 1 Tablets By Mouth Every day Unchanged cholecalciferol (Vitamin D 1000 intl units Tab) 1 Tablets By Mouth Every day Unchanged fluticasone nasal (Flonase 0.05 mg/ inh nasal spray) 2 Sprays Nasal Inhalation Every day in each nostril Unchanged furosemide (furosemide 40 mg Tab) 1 Tablets By Mouth 2 times a day Unchanged glipiZIDE (glipiZIDE 10 mg Tab) 1 Tablets By Mouth Every day Unchanged hydrALAZINE (hydrALAZINE 50 mg Tab) 1 Tablets By Mouth 2 times a day Unchanged hydrochlorothiazide-losartan (Hyzaar 100 mg-25 mg oral tablet) 1 Tablets By Mouth Every day Unchanged metformin (metformin 500 mg ER Tab) 1 Tablets By Mouth 2 times a day Unchanged montelukast (Singulair 10 mg Tab) 1 Tablets By Mouth Every day Unchanged nystatin topical (nystatin topical 100,000 units/ g powder) 1 Application Topical 3 timesa day Unchanged ondansetron (Zofran 4 mg Tab) 1 Tablets By Mouth 4 times a day Unchanged pantoprazole (Pantoprazole [address] Tab) 1 Tablets By Mouth 2 times a day Unchanged paroxetine (Paxil 40 mg Tab) 1 Tablets By Mouth Every day Unchanged sucralfate (sucralfate tab) 30 tab(s) Unchanged temazepam (Restoril 30 mg Cap) 1 Capsules By Mouth Once a day (at bedtime) as needed for for sleep Pharmacy Information [facility]/pharmacy #[id number]: [address], [place] [id number] [phone] Allergies [place] Prefilled Pen (Nausea) Cleocin HCl (Esophageal spasm) Compazine (Unknown) Flexeril (Itching) doxycycline (Diarrhea) penicillin (Itching) traZODone (Nausea) Problems Ongoing - Any problem that you are currently receiving treatment for. Bile reflux gastritis BMI 33.0-33.9,adult Bradycardia CAD (coronary artery disease) Change in bowel habits Chronic constipation Chronic diastolic heart failure CKD (chronic kidney disease) CVA (cerebrovascular accident) Diabetes Dyslipidemia Epigastric pain Fibromyalgia SCOTTY (generalized anxiety disorder) GERD (gastroesophageal reflux disease) HTN (hypertension) Hyperkalemia Incisional hernia Insomnia Irritable bowel Major depressive disorder Nausea Overflow incontinence Pulmonary HTN Seasonal allergic rhinitis Tubular adenoma of colon Vitamin D deficiency Historic (more content not included)...[facility] Medicine Office/Clinic Noteon [id number] Medicine Office/Clinic NoteFacoll[facility]/Clinic Note Chief Complaint UTI symptoms HPI Staff 79 year old female presents with burning and pain with urination, as well as lower back pain that started a couple of weeks ago. Pt states she has a hx of CKD 4. Pt also c/o being dizzy, she reports it might be her sinuses. History of Present Illness I have reviewed and verified the staff HPI to be accurate for this encounter. Portions of this record have been created with voice recognition software. Occasional wrong-word or???jzpei-t-cmul??? substitutions may have occurred due to the inherent limitations of voice recognition software. 79-year-old female with history of diabetes, hypertension, CKD, CAD and heart failure presents with her son with concern for UTI. Patient states she gets UTIs frequently and last one was about a month ago. Patient states she has had pain and burning with urination as well as right side flank pain that started couple weeks ago. Patient also states she has been a little dizzy. She also reports headache and some chills. He also has had some nausea but no vomiting. She has not seen any blood in her urine but it has been somewhat cloudy. Patient does report she has history of kidney disease. Patient attempted to give urine sample today but was unable. Patient lives in assisted living and her son states the staff will help her obtain a urine sample and take it to [facility]. Review of Systems PHQ Score Initial Depression Screen Score: 0 SCORE ROS negative unless otherwise stated in HPI. Physical Exam Vitals & Measurements T: 36.8 ???C(Oral) HR: 45(Peripheral) RR: 18 BP: 136/58 SpO2: 95% HT: 162 cm HT: 64 in WT: 79.6 kg WT: 175.488 lb BMI: 30.33 General: Well developed, well nourished, in no acute distress uses wheelchair for ambulation. Patient was able to transfer in and out of chair at the visit Eyes: Pupils equal, round, and reactive to light. Conjunctivae and sclerae normal, and extraocular movements intact Ears: No deformity or lesion of external ear. Canals and TM appear normal bilaterally. TM???s intact, not inflamed, with normal light reflex. Hearing grossly normal to conversational speech Nose: mild nasal mucosa inflammation and edema Mouth: Mucous membranes moist. Normal oropharynx, and posterior pharynx without lesions or exudates. Tongue normal Neck: no adenopathy Lungs: clear to auscultation throughout, no wheezing, no rales. No respiratory distress no cough noted at visit Cardio: regular rate and rhythm, no murmur bradycardic 48 Abdomen: soft, nondistended, BS normal and active x4. Mild suprapubic tenderness. No guarding or grimacing Musculoskeletal: Right flank tenderness Extremity: not assessed Neurologic: not assessed Skin: not assessed Mental Status: Alert and oriented x3. Normal mood and affect Assessment/Plan Patient unable to give a urine sample at the visit. We will send her with supplies to obtain a urine at the assisted living facility where she resides. Ordered urinalysis with reflex to culture, if indicated. Printed order provided with patient and instructions given to patient and her son including the order for the urine test as well as a printed visit instruction to review with the nursing staff. Explained antibiotic should not be started until after urine is obtained for best information. Will call patient with results of urine test once results are available. Patient and son verbalized understanding and agreement with this plan. 1. Acute cystitis (N30.00: Acute cystitis without hematuria) UA pending with reflex to culture if indicated. Due to symptoms will treat with Bactrim DS 1 tabletp.o. twice daily x 3 days . Finish course of ATB. Fluids/rest. Will cx urine, if indicated and notify of results in 3-5 days. Fu with PCP or go to the emergency department if not improving over next 3-4 days with ATB or worsening. Patient and/or parent verbalized understanding of tx plan. Ordered: sulfamethoxazole-trimethoprim, 1 tab(s), Oral, q12hr for 3 day(s), 6 tab(s), Refill(s) 0, drink plenty of fluids - Make sure you provide urine specimen prior to taking 1st dose, [facility]/pharmacy #[id number], 162, cm, 07/12/24 14:22:00 EDT, Height/Length Dosing, 79.6, kg, 07/12/24 14:22:00 ED... UA with Cult Rflx Pain with urination (R30.9: Painful micturition, unspecified) Ordered: sulfamethoxazole-trimethoprim, 1 tab(s), Oral, q12hr for 3 day(s), 6 tab(s), Refill(s) 0, drink plenty of fluids - Make sure you provide urine specimen prior to taking 1st dose, [facility]/pharmacy #[id number], 162, cm, 07/12/24 14:22:00 EDT, Height/Length Dosing, 79.6, kg, 07/12/24 14:22:00 ED... Follow-up With When Contact Information JOHN BARRIOS, AMADOR, FAM [address] [place] [address] Additional Instructions: Patient Education Urinary Tract Infection, Adult, Agwr-aj-Znhc Problem List/Past Medical History Ongoing Bile reflux gastritis BMI 33.0-33.9,adult Bradycardia CAD (coronary artery disease) (more content not included)...[facility] HospitalComment on above: Result Comment: Electronically Signed By: Vielka You\.br\Date and Time Signed: 07/12/24 15:17 EDTURINALYSISon [id number] Ql (U)NegativeNormal NegativeAdena Health SystemComment on above:Performed By: #### UA #### [facility] ([address] [address] VIRBLOOD/HGBNegativeNormalNegativeAdena Health System Comment on above:Performed By: #### UA #### [facility] ([address] [address] VIRColor (U)YellowNormalYellow, ColorlessAdena Health SystemComment on above:Performed By: #### UA #### [facility] ([address] [address] VIRGlucose Ql (U)250 mg/dLNormalNegative, 250 mg/dLProFormerly [facility] HospitalComment on above:Performed By: #### UA #### [facility] ([address] [address] VIRKetones Ql (U)NegativeNormalNegativeProFormerly [facility] HospitalComment on above:Performed By: #### UA #### [facility] ([address] [place] [address] VIRLeukocyte esterase Test strip Ql (U)TraceAbnormalNegative [facility] SystemComment on above:Performed By: #### UA #### [facility] ([address] [address] VIRMUCOUSPresentAbnormalNoneProMedLakewood Regional Medical CenterComment on above:Performed By: #### UA #### [facility] ([address] [place] [address] VIRNitrite Ql (U)NegativeNormalNegativeProFormerly [facility] HospitalComment on above:Performed By: #### UA #### [facility] ([address] [address] VIRPH,URINE6.0Knmkwa3.0-8.5[facility]reveportica [facility] HospitalComment on above:Performed By: #### UA #### [facility] ([address] [place] [address] VIRProtein Ql (U)100 mg/dLAbnormalNegativeProFormerly [facility] HospitalComment on above:Performed By: #### UA #### [facility] ([address] [address] VIRR.B.LCHWZ4Jsfjbv5-7TkkEocgfo [facility] HospitalComment on above:Performed By: #### UA #### [facility] ([address] [place] [address] VIRSpecific gravity (U) [Rel density]1.104Vdhmsp9.003-1.035 [facility] Health SystemComment on above:Performed By: #### UA #### [facility] ([address] [address] VIRSQUAMOUS BKBNVRPIDO03Smht4-0DufHdvrzo [facility] Comment on above:Performed By: #### UA #### [facility] ([address] [place] [address] VIRTURBIDITYCloudyAbnormalClearAdena Health System Comment on above:Performed By: #### UA #### [facility] ([address] [address] VIRUROBILINOGEN0.2 eu/dLNormal0.2 eu/dL, 1.0 eu/dLAdena Health SystemComment on above:Performed By: #### UA #### [facility] ([address] [address] VIRW.B.MMQWD13Qezl2-7HqkYipqjmSalem Regional Medical CenterComment on above:Performed By: #### UA #### [facility] ([address] [address] VIRURINE CULTUREon 29-34-5864Zqyueybo identified Cx Nom (U) CULTURE RESULTS ESCHERICHIA COLI >100,000 CFU/mL Escherichia coli [ S = SUSCEPTIBLE R = RESISTANT I = INTERMEDIATE S-DO = Susceptible-dose dependent NS = Non-suscceptible NO = No Interpretation ] Organism: ESCHERICHIA COLI Antibiotic Interpretation JED Status Ampicillin S 4.0 F AMP/SULBACTAM S <=^2.0 F PIPERACIL/TAZOBACTAM S <=^4.0 F Cefazolin (non-urinary) S 2.0 F Cefazolin (urinary) S 2.0 F Ceftriaxone S <=^0.25 F Gentamicin S <=^1.0 F Ciprofloxacin R >=^4.0 F Levofloxacin R >=^8.0 F Nitrofurantoin S <=^16.0 F Trimethoprim + Sulfamethoxazole S <=^1.0 FSusceptibleAdena Health System Comment on above:Performed By: #### UC #### [facility] ([facility]) [address] [place] [address] VIRBASIC METABOLIC PANLon 76-55-5674Rttds gap [Moles/Vol]10 mmol/LNormal5-15A[facility] Health SystemComment on above:Performed By: #### NORA 3015-3, LIVR, BMP #### [facility] ([id number]) [address] [place] [address] #### PABLO 34060-6 #### [facility] ([id number]) [address] [place], [place] [address]Fcmhqjx [Mass/Vol]9.2 mg/dLNormal8.5-10.5PSalem Regional Medical CenterComment on above:Performed By: #### NORA 3015-3, LIVR, BMP #### [facility] ([id number]) [address] [place] [address] #### Karan [id number] #### [facility] ([id number]) [address], [address] [place], [place] [address]Eihqpysf [Moles/Vol]102 mmol/XOsvica09-041OvdEpqalpFormerly [facility] HospitalComment on above:Performed By: #### NORA 3015-3, LIVR, BMP #### [facility] ([id number]) [address] [place] [address] ###Leroy SHAH [id number] #### [facility] ([id number]) [address] [place], [place] [address] [Moles/Vol]25 mmol/OPoiyge04-92PdpUfrvugSalem Regional Medical Center Comment on above:Performed By: #### NORA 3016-3, JOHNNY SERRANO #### [facility] ([id number]) [address] [place] [address] #### PABLO 64411-2 #### [facility] ([id number]) [address] [place], [place] [address]Yvdxraeptr [Mass/Vol]1.42 mg/dLHigh0.40-1.00Adena Health SystemComment on above:Result Comment: METHOD TRACEABLE TO IDMS STANDARD Performed By: #### NORA 3, JOHNNY SERRANO #### [facility] ([id number]) [address] [place] [address] #### PABLO 60209-3 #### [facility] ([id number]) [address] [place], [place] [address]IQT/1.73 sq M.predicted among non-blacks MDRD (S/P/Bld) [Vol rate/Area]38 mL/min/{1.73_m2}Low>59ProFormerly [facility] HospitalComment on above: Result Comment: Reported eGFR is based on the CKD-EPI 2020 equation that does not use a race coefficient.Performed By: #### NORA 3, ZACH BMP #### [facility] ([id number]) [address] [place] [address] #### PABLO 86408-8 #### [facility] ([id number]) [address] [place], [place] [address]Fbithsi [Mass/Vol]261 mg/vXXbnv88-44GimGiheozFormerly [facility] Comment on above:Performed By: #### NORA 3015-3, LIVEva, BMP #### [facility] ([id number]) [address] [place] [address] #### PABLO 85202-3 #### [facility] ([id number]) [address], [address] [place], [place] [address]Brmgdxphj [Moles/Vol]3.7 mmol/LNormal3.5-5.0ProFormerly [facility] HospitalComment on above:Performed By: #### NORA 6-3, LIVR, BMP #### [facility] ([id number]) [address] [place] [address] #### PABLO 40965-3 #### [facility] ([id number]) [address], [address] [place], [place] [address]Qxhiwh [Moles/Vol]137 mmol/JSicmto149-901QnsQkahrn [facility] HospitalComment on above:Performed By: #### NORA 6-3, LIVR, BMP #### [facility] ([id number]) [address] [place] [address] ###Leroy SHAH 82637-4 #### [facility] ([id number]) [address], [address] [place], [place] [address]Hovn nitrogen [Mass/Vol]28 mg/dLHigh5-27ProFormerly [facility] HospitalComment on above:Performed By: #### NORA 3016-3, LIVR, BMP #### [facility] ([id number]) [address] [place] [address] #### PABLO 53372-9 #### [facility] ([id number]) [address], [address] [place], [place] [address]WGG AND AUTO DIFFon 96-56-9002PKHUNJBZ BASOPHIL0.1 X10E9/LNormal 0.0-0.2[facility] HospitalComment on above:Performed By: #### NORA 6- 3, LIVR, BMP #### [facility] ([id number]) [address] [place] [address] #### PABLO 33706-3 #### [facility] ([id number]) [address] [place] [address], [address] [place], [place] [address]WOJJPOQL NEUTROPHIL4.9 X10E9/LNormal1.5-6.6ProFormerly [facility] HospitalComment on above:Performed By: #### NORA, 3015-3, LIVR, BMP #### [facility] ([id number]) [address] [place] [address] #### PABLO 98548-1 #### [facility] ([id number]) [address] [place] [address], [address] [place] [address]Cefuewldb/100 WBC (Bld)1.1 %[facility] Comment on above:Performed By: #### NORA, 3015-3, LIVR, BMP #### [facility] ([id number]) [address] [place] [address] #### PABLO 12540-4 #### [facility] ([id number]) [address] [place] [address], [address] [place], [place] [address]Mmyaqexhipz (Bld) [#/Vol]0.3 10*3/uLNormal0.0-0.4Adena Health SystemComment on above:Performed By: #### NORA, 3015-3, LIVR, BMP #### [facility] ([id number]) [address] [place] [address] #### PABLO 27550-0 #### [facility] ([id number]) [address] [place] [address], [address] [place], [place] [address]Pzlzwqcmbta/100 WBC (Bld)4.2 %[facility] Comment on above:Performed By: #### NORA, 3015-3, LIVR, BMP #### [facility] ([id number]) [address] [place] [address] #### PABLO 14990-8 #### [facility] ([id number]) [address] [place], [place] [address]Kmgvtgzbwqq distribution width (RBC) [Ratio]13.1 %Normal 11.5-15.0Adena Health SystemComment on above:Performed By: #### NORA 6-3, LIVR, BMP #### [facility] ([id number]) [address] [place] [address] #### PABLO 56171-1 #### [facility] ([id number]) [address] [place], [place] [address]Wnqojxyqnp (Bld) [Volume fraction]36.8 %Owtsnf83-29DyeGxrbvmFormerly [facility] HospitalComment on above:Performed By: #### NORA 6-3, LIVR, BMP #### [facility] ([id number]) [address] [place] [address] #### PABLO 42484-9 #### [facility] ([id number]) [address], [address] [place], [place] [address]Lbuifoniio (Bld) [Mass/Vol]12.2 g/iAWnskto14.7-15.5PSalem Regional Medical CenterComment on above:Performed By: #### NORA, 6-3, LIVR, BMP #### [facility] ([id number]) [address] [place] [address] #### PABLO 73078-0 #### [facility] ([id number]) [address] [place], [place] [address]Cxaigjiwgih (Bld) [#/Vol]1.0 10*3/uLNormal1.0-3.5PSalem Regional Medical CenterComment on above:Performed By: #### CBCIsrrael, 3016-3, LIVR, BMP #### [facility] ([id number]) [address] [place] [address] #### PABLO 31334-0 #### [facility] ([id number]) [address], [address] [place], [place] [address]Pdpkxgoujkm/100 WBC (Bld)14.0 %NormalAdena Health System Comment on above:Performed By: #### CBCIsrrael, 3015-3, LIVR, BMP #### [facility] ([id number]) [address] [place] [address] #### PABLO 14401-0 #### [facility] ([id number]) [address] [place], [place] [address]GIG (RBC) [Entitic mass]30.3 olMsaljc83-57UswLxwieyFormerly [facility] HospitalComment on above:Performed By: #### CBCIsrrael, 3015-3, LIVR, BMP #### [facility] ([id number]) [address] [place] [address] #### PABLO 84889-0 #### [facility] ([id number]) [address], [address] [place], [place] [address]LSUK (RBC) [Mass/Vol]33.3 g/sMQszbjn91-00SyyMiajsvFormerly [facility] HospitalComment on above:Performed By: #### CBCIsrrael, 3016-3, LIVR, BMP #### [facility] ([id number]) [address] [place] [address] #### PABLO 20400-6 #### [facility] ([id number]) [address], [address] [place], [place] [address]QIB (RBC) [Entitic vol]91 aSSljnyw26-585RuaJycqap Minneapolis HospitalComment on above:Performed By: #### NORA, 3015-3, LIVR, BMP #### [facility] ([id number]) [address] [place] [address] #### PABLO 08793-5 #### [facility] ([id number]) [address], [address] [place], [place] [address]Wnegkalgi (Bld) [#/Vol]0.6 10*3/uLNormal0-0.9ProFormerly [facility] HospitalComment on above:Performed By: #### NORA, 3015-3, LIVR, BMP #### [facility] ([id number]) [address] [place] [address] #### PABLO 21019-0 #### [facility] ([id number]) [address], [address] [place], [place] [address]Leughwrwn/100 WBC (Bld)9.2 %[facility] Comment on above:Performed By: #### NORA, 3015-3, LIVR, BMP #### [facility] ([id number]) [address] [place] [address] #### PABLO 64510-7 #### [facility] [facility] ([id number]) [address] [place], [place] [address]Jddkdxeoswf/100 WBC (Bld)71.5 %[facility] Comment on above:Performed By: #### NORA, 3015-3, LIVR, BMP #### [facility] ([id number]) [address] [place] [address] 45[address] #### PABLO 30049-7 #### [facility] ([id number]) [address], [address] [place], [place] [address]Oqiewink mean volume (Bld) [Entitic vol]9.6 fLNormal7-12 ProMHighland Springs Surgical CenterComment on above:Performed By: #### NORA 3, LIVEva, BMP #### [facility] ([id number]) [address] [place] [address] 22265 #### PABLO 09837-4 #### [facility] ([id number]) [address], [address] [place], [place] [address]Ttcwlpxxb (Bld) [#/Vol]241 10*3/sWUqoucx118-473KwxDhdvqo Fremont HospitalComment on above:Performed By: #### NORA 3, LIVEva, BMP #### [facility] ([id number]) [address] [place] [address] 996[address] #### PABLO 88761-3 #### [facility] ([id number]) [address] [facility], [address] [place], [place] [address]TMN COUNT4.04 X10E12/LNormal3.80-5.20[facility] Comment on above:Performed By: #### NORA 3, LIVR, BMP #### [facility] ([id number]) [address] [place] [address] #### PABLO [id number] #### [facility] ([id number]) [address], [address] [place], [place] [address]YSM (Bld) [#/Vol]6.8 10*3/uLNormal4.0-11.0ProFormerly [facility] Adventist HospitalComment on above:Performed By: #### NORA, 3, LIVR, BMP #### [facility] ([id number]) [address] [place] [address] 93644 #### PABLO 04562-2 #### [facility] ([id number]) [address] [facility], [address] [place], [place] [address]GQF A1C (GLYCO-HGB)on 35-38-9731Hnydgcy [Mass/Vol]246 mg/dL NormalProFormerly Metroplex Adventist HospitalComment on above:Performed By: #### NORA 6- 3, ZACH, BMP #### [facility] ([id number]) [address] [place] [address] #### PABLO 99770-4 #### [facility] ([id number]) [address] [facility], [address] [place], [place] [address]OxM3p (Bld) [Mass fraction]10.2 %High4.4-5.6ProFormerly [facility]plex Adventist HospitalComment on above:Result Comment: NOTE ADA Guidelines Result HgbA1c Normal : less than 5.7 % Prediabetes : 5.7 % to 6.4 % Diabetes : > 6.4 % Use with caution in patients with abnormal hemoglobin variants as the half-life of red blood cells and in vivo glycation rates are affected.Performed By: #### NORA 63, ZACH BMP #### [facility] ([id number]) [address] [place] [address] 34073 #### PABLO 33152-5 #### [facility] ([id number]) [facility] [facility], [address] [place], [place] [address]XANPX PANELon 49-48-6892Xoshfxg [Mass/Vol]3.2 g/dLNormal3.2-5.3 ProMHighland Springs Surgical CenterComment on above:Performed By: #### NORA 3, LIVR, BMP #### [facility] ([id number]) [address] [place] [address]39 #### PABLO 95404-4 #### [facility] ([id number]) [address] [place] [address], [address] [place] [address]YPX [Catalytic activity/Vol]62 U/ISjxvvy65-452EkhGhtwobAdena Health SystemComment on above:Performed By: ###Leroy MELENDEZ 6-3, LIVR, BMP #### [facility] ([id number]) [address] [place] [address] 21713 #### PABLO 72332-2 #### [facility] ([id number]) [address] [place] [address], [address] [place], [place] [address]SVR [Catalytic activity/Vol]23 U/LNormal0-31PSalem Regional Medical CenterComment on above:Performed By: #### NORA 6-3, LIVR, BMP #### [facility] ([id number]) [address] [place] [address] ###Leroy SHAH 75390-2 #### [facility] ([id number]) [address] [place] [address], [address] [place] [address]DXO [Catalytic activity/Vol]18 U/LNormal0-41A[facility]a Health SystemComment on above:Performed By: ###Leroy MELENDEZ 6-3, LIVR, BMP #### [facility] ([id number]) [address] [place] [address] #### PABLO 12219-7 #### [facility] ([id number]) [address] [place] [address], [address] [place], [place] [address]Wvokllrwx [Mass/Vol]0.9 mg/dLNormal0.3-1.2ProMedLakewood Regional Medical CenterComment on above:Performed By: ###Leroy MELENDEZ 6-3, LIVR, BMP #### [facility] ([id number]) [address] [place] [address] #### PABLO 42884-4 #### [facility] ([id number]) [address] [place] [address], [address] [place], [place] [address]Fbrcqqwkb.direct [Mass/Vol]0.1 mg/dLNormal0.0-0.4ProFormerly [facility] Adventist HospitalComment on above:Performed By: #### NORA, 3016-3, LIVR, BMP #### [facility] ([id number]) [address] [place] [address] 62874 #### PABLO 67417-0 #### [facility] ([id number]) [address] [place] [address], [address] [place], [place] [address]Fcuifwd [Mass/Vol]6.6 g/dLNormal6.0-8.0ProFormerly [facility] Adventist HospitalComment on above:Performed By: #### NORA 6-3, LIVR, BMP #### [facility] ([id number]) [address] [place] [address] 34198 #### PABLO 46899-1 #### [facility] ([id number]) [address] [place] [address], [address] [place], [place] [address]Ogshi 1996 panelon 90-90-8520Cchmkrjjmbg [Mass/Vol]156 mg/dL Hmreol270-913GchYywkvuFormerly [facility]plex Adventist HospitalComment on above:Performed By: #### NORA, 6-3, LIVR, BMP #### [facility] ([id number]) [address] [place] [address]28 #### PABLO 56265-7 #### [facility] ([id number]) [address] [place] [address], [address] [place], [place] [address]Ddpcjiygocs in HDL [Mass/Vol]59 mg/dLNormal>39ProFormerly [facility] Adventist HospitalComment on above:Result Comment: HDL <40 mg/dL - High Risk HDL > or = 40mg/dL- Desirable HDL >60 mg/dL - Negative Risk Performed By: #Juana MELENDEZ, 3016-3, LIVEva, BMP #### [facility] ([id number]) [address] [place] [address]99[address] ##Ant SHAH 07601-0 #### [facility] ([id number]) [address] [place], [place] [address]Magmiqqyubn in LDL [Mass/Vol]66 mg/dLNormal<130ProFormerly [facility]ist HospitalComment on above:Result Comment: LDL <100 mg/dL - Desirable LDL >160 mg/dL - High Risk Performed By: #Juana MELENDEZ, 6-3, LIVR, BMP #### [facility] ([id number]) [address] [place] [address] ##Ant SHAH 92950-9 #### [facility] ([id number]) [address] [place], [place] [address]Waerlpjdaev in VLDL [Mass/Vol]31 mg/dLHigh0-30ProFormerly [facility]ist HospitalComment on above:Performed By: #Juana MELENDEZ 6-3, LIVR, BMP #### [facility] ([id number]) [address] [place] [address] 25075 ##Ant SHAH 60349-1 #### [facility] ([id number]) [address], [address] [place], [place] [address]TXEURFOBZFI:HDL2.1Qxcxgr2.0-5.0ProFormerly [facility]ist HospitalComment on above:Performed By: #Juana MELENDEZ 6-3, LIVR, BMP #### [facility] ([id number]) [address] [place] [address], [place] [address] #### PABLO 58799-0 #### [facility] ([id number]) [address] [facility], [address] [place], [place] [address]Cipdynpyxywq [Mass/Vol]156 mg/yMLxez65-848NjzDwihatFormerly [facility]plex Adventist HospitalComment on above:Performed By: #### NORA, 6-3, LIVR, BMP #### [facility] ([id number]) [address] [place] [address], [place] [address] #### PABLO 53719-2 #### [facility] ([id number]) [address] [facility], [address] [place], [place] [address]XNFASVFHUDYO - ALBUMIN:CREATININE URINE RATIOon 03-19-2024 ALB/CREAT PFNET1183.3 mg/g creatHigh0.0-30.0ProFormerly [facility] Adventist HospitalComment on above:Performed By: #### SHAY #### [facility] ([id number]) [address] [facility], [address] [place], [place] [address]Mzskxdl DL <= 20 mg/L (U) [Mass/Vol]243.1 mg/dLHigh0.0-1.9 [facility] HospitalComment on above:Performed By: ###Leroy DAY #### [facility] ([id number]) [address] [place] [address], [address] [place], [place] [address]GUVCE CREAT66.27 mg/dLNormalProFormerly [facility]ist HospitalComment on above:Performed By: #### SHAY #### [facility] ([id number]) [address] [facility], [address] [place], [place] [address]HJA Qnon 56-46-2111SJK2.19 uIU/mLNormal0.49-4.67ProFormerly [facility] Adventist HospitalComment on above:Performed By: #### NORA, 6-3, LIVR, BMP #### [facility] ([id number]) [address] [facility], [place] [address] #### HA1C, 01202-4 #### [facility] ([id number]) [address] [place], [place] [address]HDX CBC WITH AUTO DIFFon 93-07-7933LRDXIEKQD ABSOLUTE WKUU2JWIS HealthcareBasophils/100 WBC (Bld)0.4 %0.2 - 2.0 %NOMS HealthcareEosinophils/100 WBC (Bld)1.8 %0.9 - 7.0 %NOMS HealthcareErythrocyte distribution width (RBC) [Ratio]12.4 %11.0 - 15.0 %[facility] HealthcareHematocrit (Bld) [Volume fraction]37.5 %36.0 - 48.0 %[facility] HealthcareHemoglobin (Bld) [Mass/Vol]12 g/dL12.0 - 16.0 g/dL NOMS HealthcareIMMATURE GRANULOCYTES ABS AUTO0.03NOMS HealthcareImmature granulocytes/100 WBC (Bld)0.3 %0.0 - 0.5 %NOM HealthcareInterpretation and review of laboratory resultsAbnormalNOID HealthcareLYMPHOCYTES ABSOLUTE PUDQ0Ahq [facility]S HealthcareLymphocytes/100 WBC (Bld)11.2 %Low20.5 - 60.0 %[facility]oxHealthH (RBC) [Entitic mass]30.6 pg26.7 - 34.0 pgNOKindred HospitalHC (RBC) [Mass/Vol]32 g/dL29.9 - 35.2 g/dLCoxHealthV (RBC) [Entitic vol]95.7 fL81.0 - 99.0 fL [facility] HealthcareMONOCYTES ABSOLUTE AUTO0.7NOMS HealthcareMonocytes/100 WBC (Bld) 7.9 %1.7 - 12.0 %[facility]OMS HealthcareNEUTROPHILS ABSOLUTE BZOZ0JjyiACPO Healthcare Neutrophils/100 WBC (Bld)78.4 %High43.0 - 75.0 %[facility] HealthcarePlatelet mean volume (Bld) [Entitic vol]10.6 fL9.5 - 13.5 fLNOHawthorn Children's Psychiatric HospitalTB EO #0.2NOMS HealthcareTBH [id number] HealthcareTBH RBC3.92LowNOMS HealthcareTBH NQB3KQZQ HealthcareCLINISYNCNPAWHUSKA HOSPITAL – [facility] HealthcareURINE CULTURE, ROUTINEon 80-87-8505Asriqunm identified Cx Nom (U) Urine Culture, Routine NOMS HealthcareBacteria identified Cx Nom (U)No growthNOMS HealthcareBacteria identified Cx Nom (U)Performed at: CB - [facility] HealthcareBacteria identified Cx Nom (U)[address] [place], [place] [id number] Bacteria identified Cx Nom (U)Interventional Sale Consultant: Best Garcia PhD, Phone: [phone] HospitalCLSaint Louis University HospitalMRI BRAIN WO W CONon 07-04-2022 MRI BRAIN WO W CONEXAMINATION: MRI BRAIN WO W CON HISTORY: Cerebral cyst COMPARISON: [...] Electronically authenticated by: LISSETTE VILLALOBOS Date: 2022-07-04 09:08Pro[facility] Flower HospitalCREATININEon 52-12-2236Ycilcnsyez [Mass/Vol]1.87 mg/dL Critically high0.55-1.02[facility] Clinic Orthopedic CenterComment on above:Performed By: #### UARMICR #### [facility] [address] [address] [address] Gasper RankinGFR-AF UWHWEZEG64 mL/min/1.51j8Nnajqhgfuq low>=60The [facility] HospitalComment on above:Performed By: #### UARMICR #### [facility] [address] [address] [address] Gasper RankinGFR-NON AF HKHFFZWW55 mL/min/1.94r4Lrrqceepht low>=60The [facility] Hope HospitalComment on above:Performed By: #### UARMICR #### [facility] [address] [place] [address] Dr. Gasper Dailey (CLEAN/CATCH) MICROSCOPIC IF INDICATEon 80-48-5287Oujqlgzwl Ql (U)NegativeNormalNEGATIVECrystal Clinic Orthopedic CenterComment on above:Performed By: #### UARMICR #### [facility] [address] [place] [address] Dr. Gasper GarberClarity (U)CLEARNormalCLEARCrystal Clinic Orthopedic CenterComment on above: Performed By: #### UARMICR #### [facility] [address] [place] [address] Dr. Gasper Webster (U)LT. YELLOWNormalYELLOWCrystal Clinic Orthopedic CenterComment on above:Performed By: #### UARMICR #### [facility] [address] [place] [address] Dr. Gasper GarberGlucose Ql (U)NegativeNormalNEGATIVECrystal Clinic Orthopedic CenterComment on above:Performed By: #### UARMICR #### [facility] [address] [address] [address] Gasper GarberHemoglobin Ql (U)NegativeNormalNEGATIVEMercy Health Springfield Regional Medical Center on above:Performed By: #### UARMICR #### [facility] [address] [place] [address] Dr. Gasper GarberKetones Ql (U)NegativeNormalNEGATIVECrystal Clinic Orthopedic CenterComment on above:Performed By: #### UARMICR #### [facility] [address] [place] [address] Dr. Gasper GarberLEUKOCYTESNegativeNormalNEGATIVEThe [facility] HospitalComment on above:Performed By: #### UARMICR #### [facility] [address] [place] [address] Dr. Gasper GarberNitrite Ql (U)NegativeNormalNEGATIVEThe [facility] HospitalComment on above:Performed By: #### UARMICR #### [facility] [address] [place] [address] Dr. Gasper GarberpH (U)6.5 [pH]Normal5-9The [facility] HospitalComment on above: Performed By: #### UARMICR #### [facility] [address] [place] [address] Dr. Gasper GarberSPEC GRAVITY1.856Bkwyms7.005-<=1.025The [facility] HospitalComment on above:Performed By: #### UARMICR #### [facility] [address] [place] [address] Dr. Gasper Dailey PROTEINTRACENormalNEGATIVE/ TRACEThe [facility] HospitalComment on above:Performed By: #### UARMICR #### [facility] [address] [place] [address] Dr. Gasper Hensley MICRO INDNOT INDICATEDNoalThe [facility] HospitalComment on above:Performed By: #### UARMICR #### [facility] [address] [place] [address] Dr. Gasper Kernbilinogen Qn (U)0.2 {Kaushik'U}/dLNormal0.2 - 1.0The [facility] HospitalComment on above:Performed By: #### UARMICR #### [facility] [address] [place] [address] Dr. Gasper Trevino URINEon 16-06-5479YYMZWCM URINEIsolate 1 Enterococcus faecium >100,000 cfu/mL of ORGANISM 1 Enterococcus faecium ANTIBIOTIC M.I.C RX STATUS Benzylpenicillin 2 S F Ampicillin <=2 S F Gentamicin High Level (synergy) SYN-S S F Streptomycin High Level (synergy) SYN-S S F Ciprofloxacin <=0.5 S F Levofloxacin 1 S F Quinupristin/Dalfopristin 1 S F Linezolid 1 S F Vancomycin <=0.5 S F Tetracycline <=1 S F Nitrofurantoin <=16 S FNormalThe [facility] HospitalComment on above:Performed By: #### URCX #### [facility] [address] [place] [address] Dr. Gasper GarberMAGNESIUMon 18-17-2450Ovlcxkoqh [Mass/Vol]2.0 mg/dLNormal1.8-2.4 The [facility] HospitalComment on above:Performed By: #### TONI LESLIERO #### [facility] [address] [place] [address] Dr. Gasper Su AUTO DIFFon 74-94-8343MYAQ #0.0 103/ulNormal0.0-0.1[facility] Clinic Orthopedic CenterComment on above:Performed By: #### TONI LESLIERO #### [facility] [address] [place] [address] Dr. Gasper GarberBasophils/100 WBC (Bld)0.5 %Normal0.2-2.0[facility] Comment on above:Performed By: #### TONI LESLIERO #### [facility] [address] [place] [address] Dr. Gasper Bennett #0.2 103/ulNormal0.0-0.7The [facility] HospitalComment on above: Performed By: #### JOANNE LESLIEICRO #### [facility] [address] [place] [address] Dr. Gasper Rankinosinophils/100 WBC (Bld)1.8 %Normal0.9-7.0[facility] Comment on above:Performed By: #### JOANNE LESLIEICRO #### [facility] [address] [place] [address] Dr. Gasper Rankinrythrocyte distribution width (RBC) [Ratio]12.5 %Creotw46.0-15.0 The [facility] HospitalComment on above:Performed By: #### TONI LESLIERO #### [facility] [address] [place] [address] Dr. Gasper GarberHematocrit (Bld) [Volume fraction]36.1 %Rgdoll03.0-48.0The [facility] HospitalComment on above:Performed By: #### ANUJ UMICRO #### [facility] [address] [place] [address] Dr. Gasper GarberHemoglobin (Bld) [Mass/Vol]11.8 g/dLCritically low12.0-16.0The [facility] HospitalComment on above:Performed By: #### ANUJ UMICRO #### [facility] [address] [place] [address] Dr. Gasper Moreira #0.02 10e3/ulNormal0.00-0.03The [facility] HospitalComment on above:Performed By: #### ANUJ UMICRO #### [facility] [address] [place] [address] Dr. Gasper Moreira %0.2 %Normal0.0-0.5The [facility] HospitalComment on above: Performed By: #### ANUJ UMICRO #### [facility] [address] [place] [address] Dr. Gasper Hagan #1.2 103/ulNormal1.2-3.8The [facility] HospitalComment on above:Performed By: #### ANUJ UMICRO #### [facility] [address] [place] [address] Dr. Gasper Snowmphocytes/100 WBC (Bld)14.2 %Critically low20.5-60.0The [facility] HospitalComment on above:Performed By: #### ANUJ UMICRO #### [facility] [address] [place] [address] Dr. Gasper GarberMANUAL DIFF REQNONormalThe [facility] HospitalComment on above: Performed By: #### TONI LESLIERO #### [facility] [address] [place] [address] Dr. Gasper Zayas (RBC) [Entitic mass]30.6 bjCggron98.7-34.0The [facility] HospitalComment on above:Performed By: #### TONI LESLIERO #### [facility] [address] [place] [address] Dr. [facility]berQUE[facility] (RBC) [Mass/Vol]32.7 g/vDOxdnyy18.9-35.2The [facility] HospitalComment on above:Performed By: #### TONI LESLIERO #### [facility] [address] [place] [address] Dr. Gasper Zayas (RBC) [Entitic vol]93.8 xMUuotck34.0-99.0The [facility] HospitalComment on above:Performed By: #### TONI LESLIERO #### [facility] [address] [place] [address] Dr. Gasper Suarez #1.0 103/ulCritically high0.3-0.8The [facility] Comment on above:Performed By: #### TONI LESLIERO #### [facility] [address] [place] [address] Dr. Gasper Laraocytes/100 WBC (Bld)12.3 %Critically high1.7-12.0The [facility] HospitalComment on above:Performed By: #### BERNIE LESLIE #### [facility] [address] [place] [address] Dr. Gasper Brannon #5.9 103/ulNormal1.4-6.5The [facility] HospitalComment on above:Performed By: #### TONI LESLIERO #### [facility] [address] [place] [address] Dr. Gasper Knowlesutrophils/100 WBC (Bld)71.0 %Wpgyad99.0-75.0The [facility] HospitalComment on above:Performed By: #### TONI LESLIERO #### [facility] [address] [place] [address] Dr. Gasper Andrelet mean volume (Bld) [Entitic vol]11.3 fLNormal9.5-13.5The [facility] HospitalComment on above:Performed By: #### TONI LESLIERO #### [facility] [address] [place] [address] Dr. Gasper GarberPLT237 103/diVtpcqd771-153Ftr [facility] HospitalComment on above: Performed By: #### TONI LESLIERO #### [facility] [address] [place] [address] Dr. Gasper GarberRBC3.85 106/ulCritically low4.20-5.40The [facility] HospitalComment on above:Performed By: #### TONI LESLIERO #### [facility] [address] [place] [address] Dr. Gasper GarberWBC8.4 103/ulNormal4.0-11.0The [facility] HospitalComment on above: Performed By: #### ANUJ UMDINORAHRO #### [facility] [address] [place] [address] Dr. Gasper GarberMAGNESIUMon 99-48-8404Pgaqgdsby [Mass/Vol]2.0 mg/dLNormal1.8-2.4 The [facility] HospitalComment on above:Performed By: #### TONI LESLIERO #### [facility] [address] [place] [address] Dr. Gasper GarberPROF 14(COMP METB)on 78-09-3512Pvjlqdz [Mass/Vol]3.4 g/dLNormal 3.4-5.0The [facility] HospitalComment on above:Performed By: #### TONI LESLIERO #### [facility] [address] [place] [address] Dr. Gasper GarberAlbumin/Globulin [Mass ratio]1.0 {ratio}NormalThe [facility] HospitalComment on above:Performed By: #### TONI LESLIERO #### [facility] [address] [address] [address] Gasper GómezP [Catalytic activity/Vol]70 U/YWltjfw47-149Zai [facility] HospitalComment on above:Performed By: #### ANUJ UMICRO #### [facility] [address] [address] [address] Gasper GómezT [Catalytic activity/Vol]23 U/OVbybnk63-04Zlm [facility] HospitalComment on above:Performed By: #### ANUJ UMICRO #### [facility] [address] [address] [address] Gasper Gunteron gap [Moles/Vol]12.2 mmol/LNormalThe [facility] Comment on above:Performed By: #### ANUJ UMICRO #### [facility] [address] [place] [address] Dr. Gasper GarberAST [Catalytic activity/Vol]13 U/LCritically lua89-60Qgv [facility] HospitalComment on above:Performed By: #### ANUJ UMICRO #### [facility] [address] [address] [address] Gasper GarberBilirubin [Mass/Vol]0.6 mg/dLNormal0.2-1.0The [facility] Comment on above:Performed By: #### ANUJ UMICRO #### [facility] [address] [place] [address] Dr. Gasper GarberCalcium [Mass/Vol]9.6 mg/dLNormal8.5-10.1The [facility] Comment on above:Performed By: #### ANUJ UMICRO #### [facility] [address] [place] [address] Dr. Gasper GarberChloride [Moles/Vol]106 mmol/PKtyjrq07-928Wio [facility] Comment on above:Performed By: #### ANUJ UMICRO #### [facility] [address] [place] [address] Dr. Gasper GarberCO2 [Moles/Vol]29.0 mmol/DMonnzw19.0-32.0The [facility] Comment on above:Performed By: #### TONI LESLIERO #### [facility] [address] [place] [address] Dr. Gasper GarberCreatinine [Mass/Vol]1.46 mg/dLCritically high0.55-1.02The [facility] HospitalComment on above:Performed By: #### TONI LESLIERO #### [facility] [address] [place] [address] Dr. Gasper RankinGFR-AF [id number] mL/min/1.23e7Svrygoqunp low>=60[facility]Comment [facility] above:Performed By: #### TONI LESLIERO #### [facility] [address] [place] [address] Dr. Gasper RankinGFR-NON AF [id number] mL/min/1.03t4Jxaeqwbqpm low>=60[facility]Comment [facility] above:Performed By: #### TONI LESLIERO #### [facility] [address] [place] [address] Dr. Gasper GarberGlobulin (S) [Mass/Vol]3.3 g/dLNormalThe [facility] HospitalComment on above:Performed By: #### TONI LESLIERO #### [facility] [address] [place] [address] Dr. Gasper GarberGlucose [Mass/Vol]154 mg/dLCritically nycn76-577E[facility] HospitalComment on above:Performed By: #### TONI LESLIERO #### [facility] [address] [place] [address] Dr. Gasper GarberPotassium [Moles/Vol]3.2 mmol/LCritically low3.5-5.1[facility] HospitalComment on above:Performed By: #### TONI LESLIERO #### [facility] [facility] [address] [place] [address] Dr. Gasper GarberProtein [Mass/Vol]6.7 g/dLNormal6.4-8.2[facility] Comment on above:Performed By: #### ERUR, UMICRO #### [facility] [address] [address] [address] Gasper Mccallumum [Moles/Vol]144 mmol/HBhbtjm114-089[facility] Comment on above:Performed By: #### ERUR UMICRO #### [facility] [address] [place] [address] Dr. Gasper Aguayo nitrogen [Mass/Vol]28.0 mg/dLCritically high7.0-18.0The [facility] HospitalComment on above:Performed By: #### ERUR UMICRO #### [facility] [address] [place] [address] Dr. Gasper Aguayo nitrogen/Creatinine [Mass ratio]19.2 mg/mgNormalThe [facility] HospitalComment on above:Performed By: #### ERURJOANNEICRO #### [facility] [address] [place] [address] Dr. Gasper Wilson [id number] peptide B (Bld) [Mass/Vol]1231.0 pg/mLCritically high<=900.0The [facility] HospitalComment on above:Performed By: #### LACT #### [facility] [address] [place] [address] Dr. Gasper Peters SEKOU ADMITon [id number] [Catalytic activity/Vol]30 U/L Vdvxtg92-173Llv [facility] HospitalComment on above:Performed By: #### LACT #### [facility] [address] [place] [address] Dr. Gasper Amato.MB [Mass/Vol]0.54 ng/mLNormal<=3.60[facility] Comment on above:Performed By: #### LACT #### [facility] [address] [place] [address] Dr. Gasper JoelOP9.8 pg/mLNormal4.0-51.3The [facility] HospitalComment on above:Result Comment: CUT-OFF POINTS HAVE BEEN ESTABLISHED BASED ON THE FOURTH UNIVERSAL DEFINITIONS OF MYOCARDIAL INFARCTION. THE UPPER REFERENCE LIMIT (URL) OF TROPONIN, DEFINED THE 99TH PERCENTILE OF cTnI DISTRIBUTION IN A REFERENCE POPULATION, HAS BEEN CONFIRMED THE DECISION THRESHOLD FOR [place] DIAGNOSIS.Performed By: #### LACT #### [facility] [address] [place] [address] Dr. Gasper Baker62 ng/mLNormal9-82[facility]opedic CenterComment on above: Performed By: #### LACT #### [facility] [address] [place] [address] Dr. Gasper uS AUTO DIFFon [id number] #0.0 103/ulNormal0.0-0.1The [facility] HospitalComment on above:Performed By: #### UARMICR #### [facility] [address] [place] [address] Dr. Gasper GarberBasophils/100 WBC (Bld)0.4 %Normal0.2-2.0[facility] Comment on above:Performed By: #### UARMICR #### [facility] [address] [place] [address] Dr. Gasper Bennett #0.2 103/ulNormal0.0-0.7The [facility] HospitalComment on above: Performed By: #### UARMICR #### [facility] [address] [place] [address] Dr. Gasper Rankinosinophils/100 WBC (Bld)2.4 %Normal0.9-7.0[facility] Comment on above:Performed By: #### UARMICR #### [facility] [address] [place] [address] Dr. Gasper Rankinrythrocyte distribution width (RBC) [Ratio]12.7 %Ofgfzt22.0-15.0 The [facility] HospitalComment on above:Performed By: #### UARMICR #### [facility] [address] [place] [address] Dr. Gasper GarberHematocrit (Bld) [Volume fraction]36.4 %Czvkem71.0-48.0The [facility] HospitalComment on above:Performed By: #### UARMICR #### [facility] [address] [place] [address] Dr. Gasper GarberHemoglobin (Bld) [Mass/Vol]11.7 g/dLCritically low12.0-16.0The [facility] HospitalComment on above:Performed By: #### UARMICR #### [facility] [address] [place] [address] Dr. Gasper Moreira #0.03 10e3/ulNormal0.00-0.03The [facility] HospitalComment [facility] above:Performed By: #### UARMICR #### [facility] [address] [place] [address] Dr. Gasper Moreira %0.3 %Normal0.0-0.5The [facility] HospitalComment on above: Performed By: #### UARMICR #### [facility] [address] [place] [address] Dr. Gasper Hagan #1.9 103/ulNormal1.2-3.8The [facility] HospitalComment on above:Performed By: #### UARMICR #### [facility] [address] [place] [address] Dr. Gasper Westhocytes/100 WBC (Bld)20.2 %Critically low20.5-60.0The [facility] HospitalComment on above:Performed By: #### UARMICR #### [facility] [address] [place] [address] Dr. Gasper MunguiaUAL DIFF REQNONormalThe [facility] HospitalComment on above: Performed By: #### UARMICR #### [facility] [address] [place] [address] Dr. Gasper Zayas (RBC) [Entitic mass]30.8 qnIwzaut18.7-34.0The [facility] HospitalComment on above:Performed By: #### UARMICR #### [facility] [address] [place] [address] Dr. Gasper Zayas (RBC) [Mass/Vol]32.1 g/mTTbdbtl80.9-35.2The [facility] HospitalComment on above:Performed By: #### UARMICR #### [facility] [address] [place] [address] Dr. Gasper Scott (RBC) [Entitic vol]95.8 uPRvdhsd85.0-99.0The [facility] HospitalComment on above:Performed By: #### UARMICR #### [facility] [address] [place] [address] Dr. Gasper Suarez #1.2 103/ulCritically high0.3-0.8[facility] Comment on above:Performed By: #### UARMICR #### [facility] [address] [place] [address] Dr. Gasper Laraocytes/100 WBC (Bld)13.0 %Critically high1.7-12.0The [facility] HospitalComment on above:Performed By: #### UARMICR #### [facility] [address] [place] [address] Dr. Gasper Brannon #5.8 103/ulNormal1.4-6.5The [facility] HospitalComment on above:Performed By: #### UARMICR #### [facility] [address] [place] [address] Dr. Gasper Knowlesutrophils/100 WBC (Bld)63.7 %Cedncn51.0-75.0The [facility] HospitalComment on above:Performed By: #### UARMICR #### [facility] [address] [place] [address] Dr. Gasper Andrelet mean volume (Bld) [Entitic vol]10.0 fLNormal9.5-13.5The [facility] HospitalComment on above:Performed By: #### UARMICR #### [facility] [address] [place] [address] Dr. Gasper GarberPLT251 103/byXbhvez820-238Lyx [facility] HospitalComment on above: Performed By: #### UARMICR #### [facility] [address] [place] [address] Dr. Gasper GarberRBC3.80 106/ulCritically low4.20-5.40The [facility] HospitalComment on above:Performed By: #### UARMICR #### [facility] [address] [place] [address] Dr. Gasper GarberWBC9.2 103/ulNormal4.0-11.0The [facility] HospitalComment on above: Performed By: #### UARMICR #### [facility] [address] [place] [address] Dr. Gasper GarberBASO #0.0 103/ulNormal0.0-0.1The [facility] HospitalComment on above:Performed By: #### UARMICR #### [facility] [address] [place] [address] Dr. Gasper GarberBasophils/100 WBC (Bld)0.0 %Critically low0.2-2.0The [facility] HospitalComment on above:Performed By: #### UARMICR #### [facility] [address] [place] [address] Dr. Gasper Bennett #0.0 103/ulNormal0.0-0.7The [facility] HospitalComascension macomb on above: Performed By: #### UARMICR #### [facility] [address] [place] [address] Dr. Gasper Rankinosinophils/100 WBC (Bld)0.0 %Critically low0.9-7.0The [facility] HospitalComment on above:Performed By: #### UARMICR #### [facility] [address] [place] [address] Dr. Gasper Rankinrythrocyte distribution width (RBC) [Ratio]12.1 %Kcwabo76.0-15.0 The [facility] HospitalComment on above:Performed By: #### UARMICR #### [facility] [address] [place] [address] Dr. Gasper GarberHematocrit (Bld) [Volume fraction]37.9 %Qwuwas84.0-48.0The [facility] HospitalComment on above:Performed By: #### UARMICR #### [facility] [address] [place] [address] Dr. Gasper GarberHemoglobin (Bld) [Mass/Vol]12.2 g/mQUlkvbx96.0-16.0The [facility] HospitalComment on above:Performed By: #### UARMICR #### [facility] [address] [place] [address] Dr. Gasper Moreira #0.00 10e3/ulNormal0.00-0.03The [facility] HospitalComment on above:Performed By: #### UARMICR #### [facility] [address] [place] [address] Dr. Gasper Moreira %0.0 %Normal0.0-0.5The [facility] HospitalComment on above: Performed By: #### UARMICR #### [facility] [address] [place] [address] Dr. Gasper Hagan #1.3 103/ulNormal1.2-3.8The [facility] HospitalComment on above:Performed By: #### UARMICR #### [facility] [address] [place] [address] Dr. Gasper Westhocytes/100 WBC (Bld)18.6 %Critically low20.5-60.0The [facility] HospitalComment on above:Performed By: #### UARMICR #### [facility] [address] [place] [address] Dr. Gasper MunguiaUAL DIFF REQNONormalThe [facility] HospitalComment on above: Performed By: #### UARMICR #### [facility] [address] [place] [address] Dr. Gasper Nix (RBC) [Entitic mass]30.7 bvWipihx27.7-34.0The [facility] HospitalComment on above:Performed By: #### UARMICR #### [facility] [address] [place] [address] Dr. Gasper ZayasHC (RBC) [Mass/Vol]32.2 g/wXKxsfvi57.9-35.2The [facility] HospitalComment on above:Performed By: #### UARMICR #### [facility] [address] [place] [address] Dr. Gasper ZayasV (RBC) [Entitic vol]95.5 hJRvvtdh11.0-99.0The [facility] HospitalComment on above:Performed By: #### UARMICR #### [facility] [address] [place] [address] Dr. Gasper Suarez #0.8 103/ulNormal0.3-0.8The [facility] HospitalComment on above:Performed By: #### UARMICR #### [facility] [address] [place] [address] Dr. Gasper Laraocytes/100 WBC (Bld)11.6 %Normal1.7-12.0[facility] Comment on above:Performed By: #### UARMICR #### [facility] [address] [place] [address] Dr. Gasper Brannon #5.0 103/ulNormal1.4-6.5The [facility] HospitalComment on above:Performed By: #### UARMICR #### [facility] [address] [place] [address] Dr. Gasper Knowlesutrophils/100 WBC (Bld)69.8 %Htyvak76.0-75.0The [facility] HospitalComment on above:Performed By: #### UARMICR #### [facility] [address] [place] [address] Dr. Gasper Andrelet mean volume (Bld) [Entitic vol]9.8 fLNormal9.5-13.5The [facility] HospitalComment on above:Performed By: #### UARMICR #### [facility] [address] [place] [address] Dr. Gasper GarberPLT258 103/nwUhdjel040-493Bji Holzer Hospitalment on above: Performed By: #### UARMICR #### [facility] [address] [address] [address] Gasper GarberRBC3.97 106/ulCritically low4.20-5.40The [facility] on above:Performed By: #### UARMICR #### [facility] [address] [address] [address] Gasper GarberWBC7.1 103/ulNormal4.0-11.0The [facility] HospitalComment on above: Performed By: #### UARMICR #### [facility] [address] [address] [address] Gasper GarberCT HEAD WO CONon [id number] HEAD WO CONEXAMINATION: CT HEAD WO CON, CT CSPINE WO [...] Mild cervical spondylosis. Electronically authenticated by: SAI DashbellU Date: 2022-05-14 00:20NormMercy Health St. Charles HospitalCovid-19 PCR (CVDTBH)on [id number]-CoV-2 (COVID-19) RNA ANA LUISA+probe Ql (Unsp spec)Not detectedNormalNOT DETECTEDThe [facility] Comment on above:Result Comment: When diagnostic testing is negative, the [...] for this test is supported by the Strategic Client Executive of Health and Human Service's declaration that circumstances exist to justify the emergency use of in vitro diagnostics for the detection and/or diagnosis of the virus that causes COVID-19. This EUA will remain in effect for the duration of the COVID-19 declaration justifying emergency of IVDs, unless it is terminated or revoked by the FDA (after which the test may no longer be used).Performed By: #### LACT #### [facility] [address] [address] [address] Gasper Purvis URINE PROFILEon [id number] Ql (U)NegativeNormal NEGATIVEThe [facility] HospitalComment on above:Performed By: #### ACETON #### [facility] [address] [address] [address] Gasper GarberClarity (U)CLEARNormalCLEARCrystal Clinic Orthopedic CenterComment on above: Performed By: #### ACETON #### [facility] [address] [place] [address] Dr. Gasper Webster (U)LT. YELLOWNormalYELLOWCrystal Clinic Orthopedic CenterComment on above:Performed By: #### ACETON #### [facility] [address] [address] [address] Gasper Celis micrscopic examination will be performed if indicated. NormalThe [facility] HospitalComment on above:Performed By: #### ACETON #### [facility] [address] [place] [address] Dr. Gasper GarberGlucose Ql (U)NegativeNormalNEGATIVECrystal Clinic Orthopedic CenterComment on above:Performed By: #### ACETON #### [facility] [address] [place] [address] Dr. Gasper GarberHemoglobin Ql (U)NegativeNormalNEGCleveland Clinic Union Hospital Comment on above:Performed By: #### ACETON #### [facility] [address] [place] [address] Dr. Gasper GarberKetones Ql (U)NegativeNormalNEGATIVECrystal Clinic Orthopedic CenterComment on above:Performed By: #### ACETON #### [facility] [address] [place] [address] Dr. Gasper GarberLEUKOCYTESNegativeNormalNEGATIVECrystal Clinic Orthopedic CenterComment on above:Performed By: #### ACETON #### [facility] [address] [place] [address] Dr. Gasper GarberNitrite Ql (U)PositiveAbnormalNEGCleveland Clinic Union Hospital Comment on above:Performed By: #### ACETON #### [facility] [address] [place] [address] Dr. Gasper GarberpH (U)7.0 [pH]Normal5-9[facility] Orthopedic CenterComment on above: Performed By: #### ACETON #### [facility] [address] [place] [address] Dr. Gasper GarberSPEC GRAVITY<=1.531Ujsfuifd6.005-<=1.025The [facility] Comment on above:Performed By: #### ACETON #### [facility] [address] [place] [address] Dr. Gasper Dailey PROTEINNegativeNormalNEGATIVE/ TRACEThe [facility] Comment on above:Performed By: #### ACETON #### [facility] [address] [place] [address] Dr. Gasper Hensley MICRO INDINDICATEDNormalThe [facility] HospitalComment on above: Performed By: #### ACETON #### [facility] [address] [place] [address] Dr. Gasper Kernbilinogen Qn (U)0.2 {Kaushik'U}/dLNormal0.2 - 1.0The [facility] HospitalComment on above:Performed By: #### ACETON #### [facility] [address] [place] [address] Dr. Gasper GarberMAGNESIUMon [id number] [Mass/Vol]2.4 mg/dLNormal1.8-2.4 The [facility] HospitalComment on above:Performed By: #### TONI LESLIERO #### [facility] [address] [place] [address] Dr. Gasper GarberPROF 14(COMP METB)on [id number] [Mass/Vol]3.5 g/dLNormal 3.4-5.0The [facility] HospitalComment on above:Performed By: #### JOANNE LESLIEICRO #### [facility] [address] [place] [address] Dr. Gasper GarberAlbumin/Globulin [Mass ratio]1.0 {ratio}NormalThe [facility] HospitalComment on above:Performed By: #### ANUJ UMICRO #### [facility] [address] [place] [address] Dr. Gasper GómezP [Catalytic activity/Vol]82 U/UZhjesm33-422Yos [facility] HospitalComment on above:Performed By: #### BERNIE LESLIE #### [facility] [address] [place] [address] Dr. Gasper GómezT [Catalytic activity/Vol]22 U/BRqzwme46-56Soz [facility] HospitalComment on above:Performed By: #### BERNIE LESLIE #### [facility] [address] [place] [address] Dr. Gasper Gunteron gap [Moles/Vol]11.1 mmol/LNormalThe [facility] Comment on above:Performed By: #### BERNIE LESLIE #### [facility] [address] [place] [address] Dr. Gasper GarberAST [Catalytic activity/Vol]14 U/LCritically dhc23-23Dgn [facility] HospitalComment on above:Performed By: #### BERNIE LESLIE #### [facility] [address] [place] [address] Dr. Gasper GarberBilirubin [Mass/Vol]0.5 mg/dLNormal0.2-1.0[facility] Comment on above:Performed By: #### BERNIE LESLIE #### [facility] [address] [place] [address] Dr. Gasper GarberCalcium [Mass/Vol]9.8 mg/dLNormal8.5-10.1[facility] Comment on above:Performed By: #### BERNIE LESLIE #### [facility] [address] [place] [address] Dr. Gasper GarberChloride [Moles/Vol]99 mmol/QTzndjg72-089Dih [facility] Comment on above:Performed By: #### BERNIE LESLIE #### [facility] [address] [place] [address] Dr. Gasper GarberCO2 [Moles/Vol]30.5 mmol/MYfgryv53.0-32.0[facility] Comment on above:Performed By: #### BERNIE LESLIE #### [facility] [address] [address] [address] Gasper GarberCreatinine [Mass/Vol]1.75 mg/dLCritically high0.55-1.02The [facility] HospitalComment on above:Performed By: #### ERUR, UMICRO #### [facility] [address] [address] [address] Jackman ChangEGFR-AF LEXNEPZY66 mL/min/1.14m2Sskkguqwia low>=60The [facility] HospitalComment on above:Performed By: #### ERUR, UMICRO #### [facility] [address] [place] [address] Dr. Gasper RankinGFR-NON AF ZLBVQIUY84 mL/min/1.01k9Hfzhjvatxx low>=60The [facility] HospitalComment on above:Performed By: #### ANUJ UMICRO #### [facility] [address] [place] [address] Dr. Gasper GarberGlobulin (S) [Mass/Vol]3.4 g/dLNormalThe [facility] HospitalComment on above:Performed By: #### ANUJ UMICRO #### [facility] [address] [place] [address] Dr. Gasper GarberGlucose [Mass/Vol]154 mg/dLCritically uxvn42-154Zkp [facility] on above:Performed By: #### ANUJ UMICRO #### [facility] [address] [place] [address] Dr. Gasper GarberPotassium [Moles/Vol]3.6 mmol/LNormal3.5-5.1The [facility] Comment on above:Performed By: #### ERUR, UMICRO #### [facility] [address] [place] [address] Dr. Gasper GarberProtein [Mass/Vol]6.9 g/dLNormal6.4-8.2[facility] Comment on above:Performed By: #### ERUR, UMICRO #### [facility] [address] [place] [address] Dr. Gasper GarberSodium [Moles/Vol]137 mmol/JJyrrug659-339Igi [facility] Comment on above:Performed By: #### BERNIE LESLIE #### [facility] [address] [place] [address] Dr. Gasper Aguayo nitrogen [Mass/Vol]35.0 mg/dLCritically high7.0-18.0The [facility] HospitalComment on above:Performed By: #### TONI LESLIERO #### [facility] [address] [place] [address] Dr. Gasper Aguayo nitrogen/Creatinine [Mass ratio]20.0 mg/mgNormalThe [facility] HospitalComment on above:Performed By: #### BERNIE LESLIE #### [facility] [address] [place] [address] Dr. Gasper GarberAlbumin [Mass/Vol]3.7 g/dLNormal3.4-5.0[facility] Comment on above:Performed By: #### LACT #### [facility] [address] [place] [address] Dr. Gasper GarberAlbumin/Globulin [Mass ratio]1.1 {ratio}NormalThe [facility] HospitalComment on above:Performed By: #### LACT #### [facility] [address] [place] [address] Dr. Gasper GómezP [Catalytic activity/Vol]84 U/YAcswmq89-760Dcb [facility] HospitalComment on above:Performed By: #### LACT #### [facility] [address] [place] [address] Dr. Gasper Alamo [Catalytic activity/Vol]26 U/JNiitjo85-12Pzu [facility] HospitalComment on above:Performed By: #### LACT #### [facility] [address] [place] [address] Dr. Gasper Danielle gap [Moles/Vol]8.5 mmol/LNormalThe [facility] HospitalComment on above:Performed By: #### LACT #### [facility] [address] [place] [address] Dr. Yilan ChangAST [Catalytic activity/Vol]16 U/NLmwshe03-50Vkq [facility] HospitalComment on above:Performed By: #### LACT #### [facility] [address] [place] [address] Dr. Gasper GarberBilirubin [Mass/Vol]0.4 mg/dLNormal0.2-1.0The [facility] Comment on above:Performed By: #### LACT #### [facility] [address] [place] [address] Dr. Gasper GarberCalcium [Mass/Vol]9.8 mg/dLNormal8.5-10.1The [facility] Comment on above:Performed By: #### LACT #### [facility] [address] [place] [address] Dr. Gasper GarberChloride [Moles/Vol]99 mmol/SIfwbmo46-803Xja [facility] Comment on above:Performed By: #### LACT #### [facility] [address] [place] [address] Dr. Gasper GarberCO2 [Moles/Vol]32.3 mmol/LCritically high21.0-32.0The [facility] HospitalComment on above:Performed By: #### LACT #### [facility] [address] [place] [address] Dr. Gasper aGrberCreatinine [Mass/Vol]1.84 mg/dLCritically high0.55-1.02The [facility] HospitalComment on above:Performed By: #### LACT #### [facility] [address] [place] [address] Dr. Gasper RankinGFR-AF ISCWWEEM90 mL/min/1.16q7Lsycsoadnc low>=60The [facility] HospitalComment on above:Performed By: #### LACT #### [facility] [address] [place] [address] Dr. Gasper RankinGFR-NON AF VUTWYHWN77 mL/min/1.19k1Dcsbfyepza low>=60The [facility] HospitalComment on above:Performed By: #### LACT #### [facility] [address] [place] [address] Dr. Gasper GarberGlobulin (S) [Mass/Vol]3.4 g/dLNormMercy Health St. Charles HospitalComment on above:Performed By: #### LACT #### [facility] [address] [place] [address] Dr. Gasper GarberGlucose [Mass/Vol]180 mg/dLCritically veam23-329Yxt [facility] HospitalComment on above:Performed By: #### LACT #### [facility] [address] [place] [address] Dr. Gasper GarberPotassium [Moles/Vol]3.8 mmol/LNormal3.5-5.1The [facility] Comment on above:Performed By: #### LACT #### [facility] [address] [place] [address] Dr. Gasper GarberProtein [Mass/Vol]7.1 g/dLNormal6.4-8.2The [facility] Comment on above:Performed By: #### LACT #### [facility] [address] [place] [address] Dr. Gasper GarberSodium [Moles/Vol]136 mmol/BHafexd067-766Hsi [facility] Comment on above:Performed By: #### LACT #### [facility] [address] [place] [address] Dr. Gasper GarberUrea nitrogen [Mass/Vol]35.0 mg/dLCritically high7.0-18.0The [facility] HospitalComment on above:Performed By: #### LACT #### [facility] [address] [place] [address] Dr. Gasper GarberUrea nitrogen/Creatinine [Mass ratio]19.0 mg/mgNormalThRegency Hospital CompanyComment on above:Performed By: #### LACT #### [facility] [address] [place] [address] Dr. Gasper GarberPROTIMEmarisela [id number] Coag (PPP) [Relative time]0.95 {INR} NormalThe [facility] HospitalComment on above:Performed By: #### URCX #### [facility] [address] [place] [address] Dr. Gasper Martino GUIDELINESSEE SCCI Hospital LimaComment on above:Result Comment: DESIRED INR: 2.0 - 3.0 CONDITIONS NOT LISTED BELOW 2.5 - 3.5 FOR PROSTHETIC HEART VALVE REPLACEMENT 2.5 - 3.5 RECURRENT THROMBOSIS Performed By: #### URCX #### [facility] [address] [place] [address] Dr. Gasper Conway Coag (PPP) [Time]10.1 sNormal9.0-11.6The [facility] Comment on above:Performed By: #### URCX #### [facility] [address] [place] [address] Dr. Gasper aMrino [id number] Coag (Bld) [Time]24.7 mNkcfab38.3-36.2C[facility] Clinic Orthopedic CenterComment on above:Performed By: #### BERNIE LESLIE #### [facility] [address] [place] [address] Dr. Gasper Peres MICROSCOPIC ONLYon [id number]C SEEN The [facility] HospitalComment on above:Performed By: #### UARMICR #### [facility] [address] [place] [address] Dr. Gasper Crook identified Cx Nom (U)INDICATEDProMedica Flower HospitalComment on above:Performed By: #### UARMICR #### [facility] [address] [place] [address] Dr. Gasper Hopkins SEENNormalNONE SEENCrystal Clinic Orthopedic CenterComascension [place] on above:Performed By: #### UARMICR #### [facility] [address] [place] [address] Dr. Gasper Connolly LM Nom (Urine sed)NONE SEENNormalNONE SEENCrystal Clinic Orthopedic CenterComascension [place] on above:Performed By: #### UARMICR #### [facility] [address] [place] [address] Dr. Jackman ChangEpithelial cells LM Ql (Urine sed)MANYAbnormalNONE SEEN /RAREThe [facility] HospitalComment on above:Performed By: #### UARMICR #### [facility] [address] [address] [address] Gasper GarberMUUMA SEENNormalNONE SEENWestern [facility] Hospital on above:Performed By: #### UARMICR #### [facility] [address] [place] [address] Dr. Gasper GarberDbzexYVW1-1Zmldom8-0Hxz [facility]Com[facility] on above:Performed By: #### UARMICR #### [facility] [address] [address] [address] Gasper GarberWBC0-2AbnormalIZZY SEENCrystal Clinic Orthopedic CenterComascension [place] on above: Performed By: #### UARMICR #### [facility] [address] [place] [address] Dr. Gasper GarberXR CHEST 1 Von [id number] CHEST 1 VEXAM: XR CHEST 1 V HISTORY: UNSPECIFIED INJURY OF HEAD, INITIAL ENCOUNTER COMPARISON: 06/30/2021 TECHNIQUE: AP view of the chest FINDINGS: There is no focal airspace consolidation or acute infiltrate. The cardiomediastinal silhouette is not enlarged. Mild aortic arch calcifications. No evidence of pleural effusion or pneumothorax are identified. No acute osseous abnormality. IMPRESSION: No acute cardiopulmonary process. Electronically authenticated by: [facility] Date: 2022-05-14 00:19NoTriHealth Bethesda North HospitalXR LSPINE 2_3 VIEWSon [id number] LSPINE 2_3 VIEWSEXAMINATION: XR LSPINE 2_3 VIEWS HISTORY: Pain in thoracic spine COMPARISON: No relevant comparison available. FINDINGS: BONES: Rotatory dextroscoliosis centered at L1. Moderate spondylosis and facet osteoarthropathy DISC SPACES: Multilevel narrowing most significant at L1-L2 PARASPINOUS: Negative. No paraspinous abnormality is seen. OTHER: Extensive vascular calcifications IMPRESSION: Moderate degenerative changes with rotatory scoliosis Electronically authenticated by: CHRYSTAL LAUREANO Date: 2022-05-05 15:30ProMedica Flower HospitalGLYCOHEMOGLOBIN A1Con [id number] RECOMMENDATIONSEE BELOW NormalThe [facility] on above:Result Comment: ADA RECOMMENDED LIMIT 4.0 - 6.0 ADA THERAPEUTIC TARGET < 7.0 ACTION SUGGESTED > 7.0Performed By: #### BERNIE LESLIE #### [facility] [address] [place] [address] Dr. Gasper GarberGlucose [Mass/Vol]169 mg/dLNoTriHealth Bethesda North HospitalComment on above:Performed By: #### BERNIE LESLIE #### [facility] [address] [address] [address] Gasper GarberHbA1c (Bld) [Mass fraction]7.5 %Critically high4.5-6.2The [facility] on above:Performed By: #### BERNIE LESLIE #### [facility] [address] [place] [address] Dr. Gasper GarberNM GASTRIC EMPTYon [id number] GASTRIC EMPTYNUCLEAR MEDICINE GASTRIC EMPTYING SCAN HISTORY: Early satiety. COMPARISON: None. [...] Electronically authenticated by: NASRIN CHIU Date: 2021-09-09 13:23NoTriHealth Bethesda North HospitalACETONE SERUMon [id number]VNPBJTmi [facility] HospitalComment on above:Performed By: #### ACETON #### [facility] [address] [place] [address] Dr. Gasper GarberCBC AUTO DIFFon [id number] #0.0 103/ulNormal0.0-0.1The [facility] on above:Performed By: #### UARMICR #### [facility] [address] [place] [address] Dr. Gasper GarberBasophils/100 WBC (Bld)0.5 %Normal0.2-2.0[facility] Comment on above:Performed By: #### UARMICR #### [facility] [address] [place] [address] Dr. Gasper Bennett #0.2 103/ulNormal0.0-0.7The [facility] HospitalComment on above: Performed By: #### UARMICR #### [facility] [address] [place] [address] Dr. Gasper Rankinosinophils/100 WBC (Bld)1.9 %Normal0.9-7.0[facility] Comment on above:Performed By: #### UARMICR #### [facility] [address] [place] [address] Dr. Gasper Rankinrythrocyte distribution width (RBC) [Ratio]12.8 %Kflcga66.0-15.0 The [facility] HospitalComment on above:Performed By: #### UARMICR #### [facility] [address] [place] [address] Dr. Gasper GarberHematocrit (Bld) [Volume fraction]36.2 %Qlcnbg36.0-48.0The [facility] HospitalComment on above:Performed By: #### UARMICR #### [facility] [address] [place] [address] Dr. Gasper GarberHemoglobin (Bld) [Mass/Vol]11.4 g/dLCritically low12.0-16.0The [facility] HospitalComment on above:Performed By: #### UARMICR #### [facility] [address] [place] [address] Dr. Gasper Moreira #0.03 10e3/ulNormal0.00-0.03The [facility] HospitalComment on above:Performed By: #### UARMICR #### [facility] [address] [place] [address] Dr. Gasper Moreira %0.4 %Normal0.0-0.5The [facility] HospitalComment on above: Performed By: #### UARMICR #### [facility] [address] [place] [address] Dr. Gasper Hagan #1.3 103/ulNormal1.2-3.8The [facility] HospitalComment on above:Performed By: #### UARMICR #### [facility] [address] [place] [address] Dr. Gasper Westhocytes/100 WBC (Bld)15.2 %Critically low20.5-60.0The [facility] HospitalComment on above:Performed By: #### UARMICR #### [facility] [address] [place] [address] Dr. Gasper Bardales DIFF REQNONormalThe [facility] HospitalComment on above: Performed By: #### UARMICR #### [facility] [address] [place] [address] Dr. Gasper Zayas (RBC) [Entitic mass]30.6 ouRkmjfe66.7-34.0The [facility] HospitalComment on above:Performed By: #### UARMICR #### [facility] [address] [place] [address] Dr. Gasper Zayas (RBC) [Mass/Vol]31.5 g/qWFgykok16.9-35.2The [facility] HospitalComment on above:Performed By: #### UARMICR #### [facility] [address] [place] [address] Dr. Gasper Zayas (RBC) [Entitic vol]97.1 lOVufssf03.0-99.0The [facility] HospitalComment on above:Performed By: #### UARMICR #### [facility] [address] [place] [address] Dr. Gasper Suarez #0.8 103/ulNormal0.3-0.8The [facility] HospitalComment on above:Performed By: #### UARMICR #### [facility] [address] [place] [address] Dr. Gasper GarberMonocytes/100 WBC (Bld)9.8 %Normal1.7-12.0The [facility] Comment on above:Performed By: #### UARMICR #### [facility] [address] [place] [address] Dr. Gasper KnowlesUT #6.1 103/ulNormal1.4-6.5The [facility] HospitalComment on above:Performed By: #### UARMICR #### [facility] [address] [place] [address] Dr. Gasper Knowlesutrophils/100 WBC (Bld)72.2 %Zzpypk95.0-75.0The [facility] HospitalComment on above:Performed By: #### UARMICR #### [facility] [address] [place] [address] Dr. Gasper GarberPlatelet mean volume (Bld) [Entitic vol]10.2 fLNormal9.5-13.5The [facility] HospitalComment on above:Performed By: #### UARMICR #### [facility] [address] [place] [address] Dr. Gasper GarberPLT249 103/ujGykveo796-279Orp [facility] HospitalComment on above: Performed By: #### UARMICR #### [facility] [address] [place] [address] Dr. Gasper GarberRBC3.73 106/ulCritically low4.20-5.40The [facility] HospitalComment on above:Performed By: #### UARMICR #### [facility] [address] [place] [address] Dr. Gasper GarberWBC8.4 103/ulNormal4.0-11.0The [facility] HospitalComment on above: Performed By: #### UARMICR #### [facility] [address] [place] [address] Dr. Gasper Trevino URINEon 56-49-8984CZJNTQV URINECulture Observations: HEAVY GROWTH OF MIXED GENITAL KADEEM. NO POTENTIAL PATHOGENS SEEN.NormalMarietta Memorial Hospital HospitalComment on above:Performed By: #### ACETON #### [facility] [address] [place] [address] Dr. Gasper Purvis URINE PROFILEon 53-24-8258Nkkpsyjfp Ql (U)SMALLAbnormal NEGATIVECrystal Clinic Orthopedic CenterComment on above:Performed By: #### ERUR, UMICRO #### [facility] [address] [address] [address] Gasper GarberClarity (U)CLOUDYAbnormalCLEARThe [facility] HospitalComment on above:Performed By: #### ERUR, UMICRO #### [facility] [address] [place] [address] Dr. Gasper Webster (U)YELLOWNormalYELLOWCrystal Clinic Orthopedic CenterComment on above: Performed By: #### ERUEva UMICRO #### [facility] [address] [place] [address] Dr. Gasper Celis micrscopic examination will be performed if indicated. NormalCrystal Clinic Orthopedic CenterComment on above:Performed By: #### ERUR, UMICRO #### [facility] [address] [place] [address] Dr. Gasper GarberGlucose Ql (U)NegativeNormalNEGATIVECrystal Clinic Orthopedic CenterComment on above:Performed By: #### ERUR, UMICRO #### [facility] [address] [place] [address] Dr. Gasper GarberHemoglobin Ql (U)NegativeNormalNEGATIVECrystal Clinic Orthopedic Center Comment on above:Performed By: #### ERUR, UMICRO #### [facility] [address] [place] [address] Dr. Gasper GarberKetones Ql (U)NegativeNormalNEGATIVECrystal Clinic Orthopedic CenterComment on above:Performed By: #### ERUR, UMICRO #### [facility] [address] [place] [address] Dr. Gasper GarberLEUKOCYTESTRACEAbnormalNEGATIVECrystal Clinic Orthopedic CenterComment on above:Performed By: #### ANUJ UMICRO #### [facility] [address] [address] [address] Gasper Buck Ql (U)NegativeNormalNEGATIVEThe [facility] HospitalComment on above:Performed By: #### ANUJ UMICRO #### [facility] [address] [address] [address] Gasper Smith (U)5.5 [pH]Normal5-9The [facility] HospitalComment on above: Performed By: #### ANUJ UMICRO #### [facility] [address] [place] [address] Dr. Gasper GarberProtein (U) [Mass/Vol]100 mg/dLAbnormalNEGATIVE/ TRACEThe [facility] HospitalComment on above:Performed By: #### ANUJ UMICRO #### [facility] [address] [place] [address] Dr. Gasper Fleming GRAVITY>=1.474Yeohlgws7.005-<=1.025The [facility] Comment on above:Performed By: #### ANUJ UMICRO #### [facility] [address] [place] [address] Dr. Gasper Hensley MICRO INDINDICATEDNormalThe [facility] HospitalComment on above: Performed By: #### ANUJ UMICRO #### [facility] [address] [place] [address] Dr. Gasper Snider Qn (U)1.0 {Kaushik'U}/dLNormal0.2 - 1.0The [facility] HospitalComment on above:Performed By: #### ANUJ UMICRO #### [facility] [address] [place] [address] Dr. Gasper Nixon PANEL (PCR)on 14-15-3395Lmclbiftsl F 40/41Not detectedNormal NOT DETECTEDThe [facility] HospitalComment on above:Performed By: #### ANUJ UMICRO #### [facility] [address] [place] [address] Dr. Gasper GarberAstrovirusNot detectedNormalNOT DETECTEDThe [facility] Comment on above:Performed By: #### ERUR, UMICRO #### [facility] [address] [address] [address] Gasper Bautista. Diff toxin A/BNot detectedNormalNOT DETECTEDThe [facility] HospitalComment on above:Performed By: #### ERUR, UMICRO #### [facility] [address] [address] [address] Gasper MendozapylobacterNot detectedNormalNOT DETECTEDThe [facility] Comment on above:Performed By: #### CANDER, UMICRO #### [facility] [address] [place] [address] Dr. Gasper LamyptosporidiumNot detectedNormalNOT DETECTEDThe [facility] HospitalComment on above:Performed By: #### ANUJ UMICRO #### [facility] [address] [place] [address] Dr. Gasper Suarez. CayetanensisNot detectedNormalNOT DETECTEDThe [facility] HospitalComment on above:Performed By: #### CANDER, UMICRO #### [facility] [address] [place] [address] Dr. Gasper Davila Coli O106Ete ApplicableNormalNot ApplicableThe [facility] HospitalComment on above:Performed By: #### ANUJ, UMICRO #### [facility] [address] [address] [address] Gasper Davila histolyticaNot detectedNormalNOT DETECTEDThe [facility] Comment on above:Performed By: #### ERUR, UMICRO #### [facility] [address] [address] [address] Gasper RankinAECNot detectedNormalNOT DETECTEDThe [facility] HospitalComment on above:Performed By: #### ERUR, UMICRO #### [facility] [address] [address] [address] Gasper RankinIECNot detectedNormalNOT DETECTEDThe [facility] HospitalComment on above:Performed By: #### ANUJ UMICRO #### [facility] [address] [address] [address] Gasper RankinPECNot detectedNormalNOT DETECTEDThe [facility] HospitalComascension [facility] on above:Performed By: #### ANUJ UMICRO #### [facility] [address] [address] [address] Gasper RankinTECNot detectedNormalNOT DETECTEDThe [facility] HospitalComment on above:Performed By: #### ANUJ UMICRO #### [facility] [address] [place] [address] Dr. Gasper Clark LambliaNot detectedNormalNOT DETECTEDThe [facility] Comment on above:Performed By: #### ANUJ UMICRO #### [facility] [address] [place] [address] Dr. Gasper Rush CONTROLSHenry County HospitalComment on above:Performed By: #### ANUJ UMICRO #### [facility] [address] [place] [address] Dr. Gasper Murphy [facility] [place] HEADERGI PANEL [facility] Comment on above:Performed By: #### ANUJ UMICRO #### [facility] [address] [place] [address] Dr. Gasper Irving ECOLIGI PANEL DIARRHEAGENIC E.COLI / SHIGELLAProMedica Flower HospitalComment on above:Performed By: #### ANUJ UMICRO #### [facility] [address] [place] [address] Dr. Gasper Irving INFOSEE [facility]Com[facility] on above: Result Comment: EAEC- Enteroaggregative E. Coli EPEC- Enteropathogenic E. Coli ETEC- Enterotoxigenic E. Coli lt/st STEC- Shigella-like toxin-producing E. Coli stx1/stx2 EIEC- Shigella/Enteroinvasive E. ColiPerformed By: #### ANUJ UMICRO #### [facility] [address] [address] [address] Gasper Irving PARASITESGI PANEL PARASITESProMedica Flower Hospital Comment on above:Performed By: #### ANUJ UMICRO #### [facility] [address] [address] [address] Gasper Irving VIRUSGI PANEL VIRUSESProMedica Flower HospitalComment on above:Performed By: #### ANUJ UMICRO #### [facility] [address] [address] [address] Gasper Valenzuelarovirus GI/GIIDetectedAbnormalNOT DETECTEDCrystal Clinic Orthopedic Center Comment on above:Performed By: #### ANUJ UMICRO #### [facility] [address] [place] [address] Dr. Gasper Bunn ShigelloidesNot detectedNormalNOT DETECTEDThe [facility] HospitalComment on above:Performed By: #### ANUJ UMICRO #### [facility] [address] [place] [address] Dr. Gasper GarberRotavirus ANot detectedNormalNOT DETECTEDCrystal Clinic Orthopedic Center Comment on above:Performed By: #### ANUJ UMICRO #### [facility] [address] [place] [address] Dr. Gasper AlmonellaNot detectedNormalNOT DETECTEDCrystal Clinic Orthopedic Center Comment on above:Performed By: #### ANUJ UMICRO #### [facility] [address] [place] [address] Dr. Gasper MalhotrapovirusNot detectedNormalNOT DETECTEDCrystal Clinic Orthopedic Center Comment on above:Performed By: #### ANUJ UMICRO #### [facility] [address] [place] [address] Dr. Gasper GarberSTECNot detectedNormalNOT DETECTEDThe [facility] HospitalComment on above:Performed By: #### ANUJ UMICRO #### [facility] [address] [place] [address] Dr. Gasper GarberVibrioNot detectedNormalNOT DETECTEDThe [facility] HospitalComment on above:Performed By: #### ERUEva UMICRO #### [facility] [address] [place] [address] Dr. Gasper Brown CholeraNot detectedNormalNOT DETECTEDThe [facility] Comment on above:Performed By: #### ANUJ UMICRO #### [facility] [address] [place] [address] Dr. Gasper Wade. EnterocoliticaNot detectedNormalNOT DETECTEDThe [facility] HospitalComment on above:Performed By: #### ANUJ UMICRO #### [facility] [address] [place] [address] Dr. Gasper GarberLACTATE/LACTIC ACIDon 60-49-9620Mlrfqqn [Moles/Vol]1.0 mmol/L Normal0.4-1.9The [facility] HospitalComment on above:Performed By: #### PT, PTT #### [facility] [address] [place] [address] Dr. Gasper GarberLIPASEon 85-34-5929Qyuvdl [Catalytic activity/Vol]166.0 U/LNormal 73.0-393.0The [facility] HospitalComment on above:Performed By: #### UARMICR #### [facility] [address] [place] [address] Dr. Gasper GarberPROF 14(COMP METB)on 91-27-5130Rmagkce [Mass/Vol]3.7 g/dLNormal 3.4-5.0The [facility] HospitalComment on above:Performed By: #### UARMICR #### [facility] [address] [place] [address] Dr. Gasper GarberAlbumin/Globulin [Mass ratio]1.0 {ratio}NormalThe [facility] HospitalComment on above:Performed By: #### UARMICR #### [facility] [address] [place] [address] Dr. Gasper GarberALP [Catalytic activity/Vol]75 U/JYimcfe59-825Lnr [facility] HospitalComment on above:Performed By: #### UARMICR #### [facility] [address] [address] [address] Gasper GómezT [Catalytic activity/Vol]44 U/CUzmbfw21-23Qqh [facility] HospitalComment on above:Performed By: #### UARMICR #### [facility] [address] [address] [address] Gasper GarberAnion gap [Moles/Vol]15.3 mmol/LNormalCrystal Clinic Orthopedic Center Comment on above:Performed By: #### UARMICR #### [facility] [address] [address] [address] Gasper GarberAST [Catalytic activity/Vol]27 U/CFtvfzt74-37Yzk [facility] HospitalComment on above:Performed By: #### UARMICR #### [facility] [address] [place] [address] Dr. Gasper GarberBilirubin [Mass/Vol]0.5 mg/dLNormal0.2-1.0The [facility] Comment on above:Performed By: #### UARMICR #### [facility] [address] [place] [address] Dr. Gasper GarberCalcium [Mass/Vol]9.7 mg/dLNormal8.5-10.1[facility] Comment on above:Performed By: #### UARMICR #### [facility] [address] [place] [address] Dr. Gasper GarberChloride [Moles/Vol]105 mmol/AZsykay67-889Lkx [facility] Comment on above:Performed By: #### UARMICR #### [facility] [address] [place] [address] Dr. Gasper GarberCO2 [Moles/Vol]24.0 mmol/NXolyvn58.0-32.0The [facility] Comment on above:Performed By: #### UARMICR #### [facility] [address] [place] [address] Dr. Gasper GarberCreatinine [Mass/Vol]2.20 mg/dLCritically high0.55-1.02The [facility] HospitalComment on above:Performed By: #### UARMICR #### [facility] [address] [address] [address] Gasper RankinGFR-AF HPXKVIZE05 mL/min/1.53w8Iryulrxwko low>=60The [facility] HospitalComment on above:Performed By: #### UARMICR #### [facility] [address] [place] [address] Dr. Gasper RankinGFR-NON AF MVITUBRK95 mL/min/1.49u6Rduhiufmst low>=60The [facility] HospitalComment on above:Performed By: #### UARMICR #### [facility] [address] [place] [address] Dr. Gasper GarberGlobulin (S) [Mass/Vol]3.7 g/dLNormalThe [facility] HospitalComment on above:Performed By: #### UARMICR #### [facility] [address] [place] [address] Dr. Gasper GarberGlucose [Mass/Vol]280 mg/dLCritically zybt79-791EbiWestern Reserve Hospital on above:Performed By: #### UARMICR #### [facility] [address] [place] [address] Dr. Gasper GarberPotassium [Moles/Vol]4.3 mmol/LNormal3.5-5.1[facility] Comment on above:Performed By: #### UARMICR #### [facility] [address] [place] [address] Dr. Gasper GarberProtein [Mass/Vol]7.4 g/dLNormal6.4-8.2[facility] Comment on above:Performed By: #### UARMICR #### [facility] [address] [place] [address] Dr. Gasper GarberSodium [Moles/Vol]140 mmol/BBuofmt198-854Rbc [facility] Comment on above:Performed By: #### UARMICR #### [facility] [address] [place] [address] Dr. Gasper GarberUrea nitrogen [Mass/Vol]29.0 mg/dLCritically high7.0-18.0The [facility] HospitalComment on above:Performed By: #### UARMICR #### [facility] [address] [place] [address] Dr. Gasper Aguayo nitrogen/Creatinine [Mass ratio]13.2 mg/mgNoTriHealth Bethesda North HospitalComment on above:Performed By: #### UARMICR #### [facility] [address] [place] [address] Dr. Gasper Ackerman 96-40-8241DGJ5.923 uIU/mLNormal0.358-3.740The [facility] HospitalComment on above:Performed By: #### UARMICR #### [facility] [address] [place] [address] Dr. Gasper Peres MICROSCOPIC ONLYon 04-59-6826IGSNEMVEGYNCYYgmwcrsgXQYR SEEN The [facility] HospitalCom[facility] [place] on above:Performed By: #### TONI LESLIERO #### [facility] [address] [place] [address] Dr. Gasper Crook identified Cx Nom (U)INDICATEDProMedica Flower HospitalComment on above:Performed By: #### TONI LESLIERO #### [facility] [address] [place] [address] Dr. Gasper Hopkins SEENNormalNONE SEENThe [facility] HospitalComascension [facility] on above:Performed By: #### TONI LESLIERO #### [facility] [address] [place] [address] Dr. Gasper Connolly LM Nom (Urine sed)NONE SEENNormalNONE SEENCrystal Clinic Orthopedic CenterComascension [place] on above:Performed By: #### TONI LESLIERO #### [facility] [address] [place] [address] Dr. Jackman ChangEpithelial cells LM Ql (Urine sed)MANYAbnormalNONE SEEN /RAREThe [facility] HospitalComascension [place] on above:Performed By: #### JOANNE LESLIEICRO #### [facility] [address] [address] [address] Gasper Benitez SEENNormalNONE SEENThe [facility] HospitalComment on above:Performed By: #### BERNIE LESLIE #### [facility] [address] [address] [address] Gasper GarberIefayZTD8-4Gtrjoq6-8Fjt [facility] HospitalComment on above:Performed By: #### TONI LESLIERO #### [facility] [address] [address] [address] Gasper GarberWBC2-5AbnormalNONE SEENThe [facility] HospitalComment on above: Performed By: #### BERNIE LESLIE #### [facility] [address] [address] [address] Gasper GarberXR ABD FLAT UP_PA Omar [id number] ABD FLAT UP_PA CHEXAMINATION: XR ABD FLAT UP_PA CH HISTORY: NAUSEA [...] Electronically authenticated by: CHRYSTAL LAUREANO Date: 2021-08-31 15:55NoUniversity [facility] AUTO DIFFon [id number] #0.1 103/ulNormal0.0-0.1The [facility] HospitalComment on above:Performed By: #### BERNIE LESLIE #### [facility] [address] [address] [address] Gasper GarberBasophils/100 WBC (Bld)0.6 %Normal0.2-2.0The [facility] Comment on above:Performed By: #### BERNIE LESLIE #### [facility] [address] [address] [address] Yilan ChangEO #0.0 103/ulNormal0.0-0.7The [facility] HospitalComment on above: Performed By: #### TONI LESLIERO #### [facility] [address] [place] [address] Dr. Gasper Rankinosinophils/100 WBC (Bld)0.5 %Critically low0.9-7.0The [facility] HospitalComment on above:Performed By: #### ANUJ UMICRO #### [facility] [address] [place] [address] Dr. Gasper Rankinrythrocyte distribution width (RBC) [Ratio]13.0 %Sxfvjh41.0-15.0 The [facility] HospitalComment on above:Performed By: #### TONI LESLIERO #### [facility] [address] [place] [address] Dr. Gasper GarberHematocrit (Bld) [Volume fraction]35.6 %Critically low36.0-48.0 The [facility] HospitalComment on above:Performed By: #### ANUJ UMICRO #### [facility] [address] [place] [address] Dr. Gasper GarberHemoglobin (Bld) [Mass/Vol]11.5 g/dLCritically low12.0-16.0The [facility] Hospitalment on above:Performed By: #### ANUJ UMICRO #### [facility] [address] [place] [address] Dr. Gasper Moreira #0.03 10e3/ulNormal0.00-0.03The [facility] HospitalComment on above:Performed By: #### JOANNE LESLIEICRO #### [facility] [address] [place] [address] Dr. Gasper Moreira %0.3 %Normal0.0-0.5The [facility] HospitalComment on above: Performed By: #### ANUJ UMICRO #### [facility] [address] [place] [address] Dr. Gasper Hagan #1.0 103/ulCritically low1.2-3.8The [facility] Comment on above:Performed By: #### ANUJ UMICRO #### [facility] [address] [place] [address] Dr. Gasper Snowmphocytes/100 WBC (Bld)10.8 %Critically low20.5-60.0The [facility] HospitalComment on above:Performed By: #### ANUJ UMICRO #### [facility] [address] [place] [address] Dr. Gasper MunguiaUAL DIFF REQNONormalThe [facility] HospitalComment on above: Performed By: #### ANUJ UMICRO #### [facility] [address] [place] [address] Dr. Gasper Zayas (RBC) [Entitic mass]31.2 syDrajku30.7-34.0The [facility] HospitalComment on above:Performed By: #### ANUJ UMICRO #### [facility] [address] [place] [address] Dr. Gasper Zayas (RBC) [Mass/Vol]32.3 g/bDFduhoz79.9-35.2The [facility] HospitalComment on above:Performed By: #### ANUJ UMICRO #### [facility] [address] [place] [address] Dr. Gasper Zayas (RBC) [Entitic vol]96.5 nAHyvncu45.0-99.0The [facility] HospitalComment on above:Performed By: #### ANUJ UMICRO #### [facility] [address] [place] [address] Dr. Gasper Suarez #0.6 103/ulNormal0.3-0.8The [facility] HospitalComment on above:Performed By: #### ANUJ UMICRO #### [facility] [address] [place] [address] Dr. Gasper Laraocytes/100 WBC (Bld)7.2 %Normal1.7-12.0[facility] Comment on above:Performed By: #### ANUJ UMICRO #### [facility] [address] [place] [address] Dr. Gasper Brannon #7.1 103/ulCritically high1.4-6.5The [facility] Comment on above:Performed By: #### ANUJ UMICRO #### [facility] [address] [place] [address] Dr. Gasper Knowlesutrophils/100 WBC (Bld)80.6 %Critically high43.0-75.0The [facility] HospitalComment on above:Performed By: #### ANUJ UMICRO #### [facility] [address] [place] [address] Dr. Gasper GarberPlatelet mean volume (Bld) [Entitic vol]10.2 fLNormal9.5-13.5The [facility] HospitalComment on above:Performed By: #### ANUJ UMICRO #### [facility] [address] [place] [address] Dr. Gasper GarberPLT276 103/odSqcftx953-364Jeh [facility] HospitalComment on above: Performed By: #### ANUJ UMICRO #### [facility] [address] [place] [address] Dr. Gasper GarberRBC3.69 106/ulCritically low4.20-5.40The [facility] HospitalComment on above:Performed By: #### ANUJ UMICRO #### [facility] [address] [place] [address] Dr. Gasper GarberWBC8.8 103/ulNormal4.0-11.0The [facility] HospitalComment on above: Performed By: #### ANUJ UMICRO #### [facility] [address] [place] [address] Dr. Gasper GarberCT ABD/PELVIS WO CONon [id number] ABD/PELVIS WO CONEXAMINATION: CT ABD/PELVIS WO CON, 08/27/2021 2:52 PM EDT HISTORY: [...] Electronically authenticated by: BELIA GAFFNEY Date: 2021-08-27 16:04[facility] URINE PROFILEon 02-18-0599Ignmryuzu Ql (U)NegativeNormal NEGATIVEWestern Reserve Hospital on above:Performed By: #### ANUJ UMICRO #### [facility] [address] [address] [address] Gasper Mojica (U)CLEARNormalCLEARCrystal Clinic Orthopedic CenterComascension [place] on above: Performed By: #### ANUJ UMICRO #### [facility] [address] [address] [address] Gasper Webster (U)LT. YELLOWNormalYELLOWThe [facility] on above:Performed By: #### ERUR, UMICRO #### [facility] [address] [address] [address] Gasper Celis micrscopic examination will be performed if indicated. NormalThe [facility] HospitalComment on above:Performed By: #### TONI LESLIERO #### [facility] [address] [address] [address] Gasper GarberGlucose Ql (U)NegativeNormalNEGATIVEMarietta Memorial Hospital HospitalComment on above:Performed By: #### TONI LESLIERO #### [facility] [address] [place] [address] Dr. Gasper GarberHemoglobin Ql (U)NegativeNormalNEGATIVECrystal Clinic Orthopedic Center Comment on above:Performed By: #### BERNIE LESLIE #### [facility] [address] [place] [address] Dr. Gasper Siddiquiones Ql (U)NegativeNormalNEGATIVECrystal Clinic Orthopedic CenterComment on above:Performed By: #### TONI LESLIERO #### [facility] [address] [place] [address] Dr. Gasper GarberLEUKOCYTESNegativeNormalNEGATIVECrystal Clinic Orthopedic CenterComment on above:Performed By: #### BERNIE LESLIE #### [facility] [address] [place] [address] Dr. Gasper GarberNitrite Ql (U)NegativeNormalNEGATIVECrystal Clinic Orthopedic CenterComment on above:Performed By: #### TONI LESLIERO #### [facility] [address] [place] [address] Dr. Gasper GarberpH (U)6.5 [pH]Normal5-9The [facility] HospitalComment on above: Performed By: #### TONI LESLIERO #### [facility] [address] [place] [address] Dr. Gasper GarberProtein (U) [Mass/Vol]100 mg/dLAbnormalNEGATIVE/ TRACEThe [facility] HospitalComment on above:Performed By: #### TONI LESLIERO #### [facility] [address] [place] [address] Dr. Gasper GarberSPEC GRAVITY1.792Cjxdkz8.005-<=1.025The [facility] HospitalComment on above:Performed By: #### BERNIE LESLIE #### [facility] [address] [place] [address] Dr. Gasper Hensley MICRO INDINDICATEDNormalThe [facility] HospitalComment on above: Performed By: #### TONI LESLIERO #### [facility] [address] [place] [address] Dr. Gasper Kernbilinogen Qn (U)0.2 {Kaushik'U}/dLNormal0.2 - 1.0The [facility] HospitalComment on above:Performed By: #### BERNIE LESLIE #### [facility] [address] [place] [address] Dr. Gasper GarberPROF CHEM 8 (BAS METB)on 67-69-6055Ihkqp gap [Moles/Vol]14.7 mmol/LNormalThe [facility] HospitalComment on above:Performed By: #### PT, PTT #### [facility] [address] [place] [address] Dr. Gasper GarberCalcium [Mass/Vol]10.1 mg/dLNormal8.5-10.1[facility] Comment on above:Performed By: #### PT, PTT #### [facility] [address] [place] [address] Dr. Gasper GarberChloride [Moles/Vol]105 mmol/VInoeao76-769Bal [facility] Comment on above:Performed By: #### PT, PTT #### [facility] [address] [place] [address] Dr. Gasper GarberCO2 [Moles/Vol]24.0 mmol/TVhgttl10.0-32.0The [facility] Comment on above:Performed By: #### PT, PTT #### [facility] [address] [place] [address] Dr. Gasper GarberCreatinine [Mass/Vol]1.56 mg/dLCritically high0.55-1.02The [facility] HospitalComment on above:Performed By: #### PT, PTT #### [facility] [address] [address] [address] Gasper RankinGFR-AF UAMIIUGB61 mL/min/1.96s5Dphoozqkhk low>=60The [facility] HospitalComment on above:Performed By: #### PT, PTT #### [facility] [address] [address] [address] Gasper RankinGFR-NON AF FFPLBGJZ17 mL/min/1.03d5Huvsidhchh low>=60The [facility] HospitalComment on above:Performed By: #### PT, PTT #### [facility] [address] [place] [address] Dr. Gasper GarberGlucose [Mass/Vol]209 mg/dLCritically fykv08-357Zmq [facility] HospitalComment on above:Performed By: #### PT, PTT #### [facility] [address] [place] [address] Dr. Gasper GarberPotassium [Moles/Vol]4.7 mmol/LNormal3.5-5.1The [facility] Comment on above:Performed By: #### PT, PTT #### [facility] [address] [place] [address] Dr. Gasper Griderdium [Moles/Vol]139 mmol/KPfzvfx180-237OkxCrystal Clinic Orthopedic Center Comment on above:Performed By: #### PT, PTT #### [facility] [address] [place] [address] Dr. Gasper GarberUrea nitrogen [Mass/Vol]16.0 mg/dLNormal7.0-18.0The [facility] HospitalComment on above:Performed By: #### PT, PTT #### [facility] [address] [place] [address] Dr. Gasper Aguayo nitrogen/Creatinine [Mass ratio]10.3 mg/mgNormalThe [facility] HospitalComment on above:Performed By: #### PT, PTT #### [facility] [address] [place] [address] Dr. Gasper Peres MICROSCOPIC ONLYon [id number]GJU SEEN [facility] CenterCom[facility] [place] on above:Performed By: #### ANUJ UMICRO #### [facility] [address] [place] [address] Dr. Gasper Crook identified Cx Nom (U)NOT INDICATEDNormalThRegency Hospital CompanyComascension [place] on above:Performed By: #### ANUJ UMICRO #### [facility] [address] [place] [address] Dr. Gasper Hopkins SEENNormalNONE SEENCrystal Clinic Orthopedic CenterComascension [place] on above:Performed By: #### ANUJ UMICRO #### [facility] [address] [place] [address] Dr. Gasper Connolly LM Nom (Urine sed)NONE SEENNormalNONE SEENCrystal Clinic Orthopedic CenterComascension [place] on above:Performed By: #### ANUJ UMICRO #### [facility] [address] [place] [address] Dr. Jackman ChangEpithelial cells LM Ql (Urine sed)FEWAbnormalNONE SEEN /RAREThe [facility] HospitalComasc[facility] [place] on above:Performed By: #### ANUJ UMICRO #### [facility] [address] [place] [address] Dr. Gasper Benitez SEENNormalNONE SEENCrystal Clinic Orthopedic CenterComascension [place] on above:Performed By: #### ANUJ UMICRO #### [facility] [address] [place] [address] Dr. Gasper Holguin SEENAbnormal0-2[facility] CenterComascension [place] on above: Performed By: #### ANUJ UMICRO #### [facility] [address] [place] [address] Dr. Gasper Chatman0-2AbnormalNONE SEENWestern [facility] Hospital on above: Performed By: #### ANUJ UMICRO #### [facility] [address] [place] [address] Dr. Gasper Trevino URINEon [id number] URINECulture Observations: Called to Chrystal Escamilla rn 08-19-21 @0942 [...] <=16 S C Rifampicin <=0.5 S C Trimethoprim/Sulfamethoxazole <=10 S C Oxacillin >=4 R CNormalThe [facility] HospitalComment on above:Performed By: #### ACETON #### [facility] [address] [place] [address] Dr. Gasper Su AUTO DIFFon [id number] #0.0 103/ulNormal0.0-0.1[facility]opedic CenterComment on above:Performed By: #### BERNIE LESLIE #### [facility] [address] [place] [address] Dr. Gasper Medelsophils/100 WBC (Bld)0.4 %Normal0.2-2.0[facility] Comment on above:Performed By: #### BERNIE LESLIE #### [facility] [address] [place] [address] Dr. Gasper Bennett #0.1 103/ulNormal0.0-0.7The [facility] HospitalComment on above: Performed By: #### BERNIE LESLIE #### [facility] [address] [place] [address] Dr. Gasper Rankinosinophils/100 WBC (Bld)1.0 %Normal0.9-7.0[facility] Comment on above:Performed By: #### BERNIE LESLIE #### [facility] [address] [place] [address] Dr. Gasper Rankinrythrocyte distribution width (RBC) [Ratio]12.5 %Qcncco33.0-15.0 The [facility] HospitalComment on above:Performed By: #### JOANNE LESLIEICRO #### [facility] [address] [place] [address] Dr. Gasper GarberHematocrit (Bld) [Volume fraction]35.3 %Critically low36.0-48.0 The [facility] HospitalComment on above:Performed By: #### ANUJ UMICRO #### [facility] [address] [place] [address] Dr. Gasper GarberHemoglobin (Bld) [Mass/Vol]11.7 g/dLCritically low12.0-16.0The [facility] HospitalComment on above:Performed By: #### ANUJ UMICRO #### [facility] [address] [place] [address] Dr. Gasper Moreira #0.03 10e3/ulNormal0.00-0.03The [facility] HospitalComment on above:Performed By: #### ANUJ UMICRO #### [facility] [address] [place] [address] Dr. Gasper Moreira %0.3 %Normal0.0-0.5The [facility] HospitalComment on above: Performed By: #### ANUJ UMICRO #### [facility] [address] [place] [address] Dr. Gasper Hagan #0.9 103/ulCritically low1.2-3.8The [facility] Comment on above:Performed By: #### ANUJ UMICRO #### [facility] [address] [place] [address] Dr. Gasper Westhocytes/100 WBC (Bld)9.6 %Critically low20.5-60.0The [facility] HospitalComment on above:Performed By: #### ANUJ UMICRO #### [facility] [address] [place] [address] Dr. Gasper Bardales DIFF REQNONormalThe [facility] HospitalComment on above: Performed By: #### ANUJ UMICRO #### [facility] [address] [place] [address] Dr. Gasper Zayas (RBC) [Entitic mass]30.8 ayMogoum84.7-34.0The [facility] HospitalComment on above:Performed By: #### ANUJ UMICRO #### [facility] [address] [place] [address] Dr. Gasper Zayas (RBC) [Mass/Vol]33.1 g/aBCqmmht17.9-35.2The [facility] HospitalComment on above:Performed By: #### ANUJ UMICRO #### [facility] [address] [place] [address] Dr. Gasper Zayas (RBC) [Entitic vol]92.9 sOIljlry70.0-99.0The [facility] HospitalComment on above:Performed By: #### ANUJ UMICRO #### [facility] [address] [place] [address] Dr. Gasper Suarez #0.9 103/ulCritically high0.3-0.8ThRegency Hospital Company Comment on above:Performed By: #### ANUJ UMICRO #### [facility] [address] [place] [address] Dr. Gasper Laraocytes/100 WBC (Bld)9.3 %Normal1.7-12.0[facility] Comment on above:Performed By: #### ANUJ UMICRO #### [facility] [address] [place] [address] Dr. Gasper Brannon #7.7 103/ulCritically high1.4-6.5The [facility] Comment on above:Performed By: #### ANUJ UMICRO #### [facility] [address] [place] [address] Dr. Gasper Knowlesutrophils/100 WBC (Bld)79.4 %Critically high43.0-75.0The [facility] HospitalComment on above:Performed By: #### TONI LESLIERO #### [facility] [address] [place] [address] Dr. Gasper Paz mean volume (Bld) [Entitic vol]10.1 fLNormal9.5-13.5The [facility] HospitalComment on above:Performed By: #### TONI LESLIERO #### [facility] [address] [place] [address] Dr. Gasper GarberPLT302 103/zgWqkunb529-158Uxk [facility] HospitalComment on above: Performed By: #### TONI LESLIERO #### [facility] [address] [place] [address] Dr. Gasper OlmosC3.80 106/ulCritically low4.20-5.40The [facility] HospitalComascension [facility] on above:Performed By: #### TONI LESLIERO #### [facility] [address] [place] [address] Dr. Gasper GarberWBC9.7 103/ulNormal4.0-11.0[facility] on above: Performed By: #### TONI LESLIERO #### [facility] [address] [place] [address] Dr. Gasper Purvis URINE PROFILEon 59-10-0472Pvrqabplf Ql (U)NegativeNormal NEGATIVECrystal Clinic Orthopedic CenterComascension [place] on above:Performed By: #### UARMICR #### [facility] [address] [place] [address] Dr. Gasper Mojica (U)CLEARNormalCLEARThe [facility] HospitalComasc[facility] on above: Performed By: #### UARMICR #### [facility] [address] [place] [address] Dr. Gasper Webster (U)LT. YELLOWNormalYELLOWCrystal Clinic Orthopedic CenterComment on above:Performed By: #### UARMICR #### [facility] [address] [place] [address] Dr. Yilan ChangERUAHDA micrscopic examination will be performed if indicated. NormalThe [facility] HospitalComment on above:Performed By: #### UARMICR #### [facility] [address] [place] [address] Dr. Gasper GarberGlucose Ql (U)NegativeNormalNEGATIVECrystal Clinic Orthopedic CenterComment on above:Performed By: #### UARMICR #### [facility] [address] [place] [address] Dr. Gasper GarberHemoglobin Ql (U)NegativeNormalNEGATIVECrystal Clinic Orthopedic Center Comment on above:Performed By: #### UARMICR #### [facility] [address] [place] [address] Dr. Gasper GarberKetones Ql (U)NegativeNormalNEGATIVECrystal Clinic Orthopedic CenterComment on above:Performed By: #### UARMICR #### [facility] [address] [place] [address] Dr. Gasper GarberLEUKOCYTESMODERATEAbnormalNEGATIVECrystal Clinic Orthopedic CenterComment on above:Performed By: #### UARMICR #### [facility] [address] [place] [address] Dr. Gasper GarberNitrite Ql (U)NegativeNormalNEGATIVECrystal Clinic Orthopedic CenterComment on above:Performed By: #### UARMICR #### [facility] [address] [place] [address] Dr. Gasper GarberpH (U)7.0 [pH]Normal5-9[facility] Orthopedic CenterComment on above: Performed By: #### UARMICR #### [facility] [address] [place] [address] Dr. Gasper GarberSPEC GRAVITY1.040Moxjoy4.005-<=1.025C[facility] Orthopedic CenterComment on above:Performed By: #### UARMICR #### [facility] [address] [place] [address] Dr. Gasper GarberUA PROTEINNegativeNormalNEGATIVE/ TRACECrystal Clinic Orthopedic Center Comment on above:Performed By: #### UARMICR #### [facility] [address] [place] [address] Dr. Gasper Hensley MICRO INDINDICATEDNormalThe [facility] HospitalComment on above: Performed By: #### UARMICR #### [facility] [address] [place] [address] Dr. Gasper Kernbilinogen Qn (U)0.2 {Kaushik'U}/dLNormal0.2 - 1.0The [facility] HospitalComment on above:Performed By: #### UARMICR #### [facility] [address] [place] [address] Dr. Gasper GarberPROF 14(COMP METB)on [id number] [Mass/Vol]3.9 g/dLNormal 3.4-5.0The [facility] HospitalComment on above:Performed By: #### PT, PTT #### [facility] [address] [place] [address] Dr. Gasper GarberAlbumin/Globulin [Mass ratio]1.2 {ratio}NormalThe [facility] HospitalComment on above:Performed By: #### PT, PTT #### [facility] [address] [place] [address] Dr. Gasper Boss [Catalytic activity/Vol]70 U/SGuvubm77-311Rkp [facility] on above:Performed By: #### PT, PTT #### [facility] [address] [place] [address] Dr. Gasper Alamo [Catalytic activity/Vol]44 U/UJetvae59-23Nef [facility] on above:Performed By: #### PT, PTT #### [facility] [address] [place] [address] Dr. Gasper Danielle gap [Moles/Vol]17.7 mmol/LNormalThe [facility] on above:Performed By: #### PT, PTT #### [facility] [address] [place] [address] Dr. Gasper Abreu [Catalytic activity/Vol]31 U/ZLwdzqh39-18Usp Ten HospitalComment on above:Performed By: #### PT, PTT #### [facility] [address] [address] [address] Gasper GarberBilirubin [Mass/Vol]0.6 mg/dLNormal0.2-1.0[facility] Comment on above:Performed By: #### PT, PTT #### [facility] [address] [place] [address] Dr. Gasper GarberCalcium [Mass/Vol]9.9 mg/dLNormal8.5-10.1The [facility] Comment on above:Performed By: #### PT, PTT #### [facility] [address] [place] [address] Dr. Gasper GarberChloride [Moles/Vol]99 mmol/WNhjirx63-030CwqCrystal Clinic Orthopedic Center Comment on above:Performed By: #### PT, PTT #### [facility] [address] [place] [address] Dr. Gasper GarberCO2 [Moles/Vol]24.4 mmol/NGvhgju83.0-32.0The [facility] Comment on above:Performed By: #### PT, PTT #### [facility] [address] [place] [address] Dr. Gasper GarberCreatinine [Mass/Vol]3.08 mg/dLCritically high0.55-1.02The [facility] HospitalComment on above:Performed By: #### PT, PTT #### [facility] [address] [place] [address] Dr. Gasper RankinGFR-AF QWHFIEDU78 mL/min/1.01l1Ewvnhnakpn low>=60The [facility] HospitalComment on above:Performed By: #### PT, PTT #### [facility] [address] [place] [address] Dr. Gasper RankinGFR-NON AF QWUMTVXG51 mL/min/1.94q7Jjtsanyaox low>=60The [facility] HospitalComment on above:Performed By: #### PT, PTT #### [facility] [address] [place] [address] Dr. Gasper GarberGlobulin (S) [Mass/Vol]3.2 g/dLNormMercy Health St. Charles HospitalComment on above:Performed By: #### PT, PTT #### [facility] [address] [place] [address] Dr. Gasper GarberGlucose [Mass/Vol]158 mg/dLCritically lfca94-080Fpr [facility] HospitalComment on above:Performed By: #### PT, PTT #### [facility] [address] [place] [address] Dr. Gasper GarberPotassium [Moles/Vol]4.1 mmol/LNormal3.5-5.1[facility] Comment on above:Performed By: #### PT, PTT #### [facility] [address] [place] [address] Dr. Gasper GarberProtein [Mass/Vol]7.1 g/dLNormal6.4-8.2The [facility] Comment on above:Performed By: #### PT, PTT #### [facility] [address] [place] [address] Dr. Gasper GarberSodium [Moles/Vol]137 mmol/STuzzii939-104Mpm [facility] Comment on above:Performed By: #### PT, PTT #### [facility] [address] [place] [address] Dr. Gasper GarberUrea nitrogen [Mass/Vol]48.0 mg/dLCritically high7.0-18.0The [facility] HospitalComment on above:Performed By: #### PT, PTT #### [facility] [address] [place] [address] Dr. Gasper GarberUrea nitrogen/Creatinine [Mass ratio]15.6 mg/mgNoTriHealth Bethesda North HospitalComment on above:Performed By: #### PT, PTT #### [facility] [address] [place] [address] Dr. Gasper Aguayo, HIGH SENSITIVITYon 87-58-4548WHVIDU47.7 pg/mLNormal 4.0-51.3The [facility] HospitalComment on above:Result Comment: CUT-OFF POINTS HAVE BEEN ESTABLISHED BASED ON THE FOURTH UNIVERSAL DEFINITIONS OF MYOCARDIAL INFARCTION. THE UPPER REFERENCE LIMIT (URL) OF TROPONIN, DEFINED THE 99TH PERCENTILE OF cTnI DISTRIBUTION IN A REFERENCE POPULATION, HAS BEEN CONFIRMED THE DECISION THRESHOLD FOR [place] DIAGNOSIS.Performed By: #### PT, PTT #### [facility] [address] [place] [address] Dr. Gasper MAURICIOon [id number]OEM SEEN [facility] CenterCom[facility] [place] on above:Performed By: #### UARMICR #### [facility] [address] [place] [address] Dr. Gasper Crook identified Cx Nom (U)INDICATEDProMedica Flower HospitalComascension [place] on above:Performed By: #### UARMICR #### [facility] [address] [place] [address] Dr. aGsper Hopkins SEENNormalNONE SEENWestern [facility] on above:Performed By: #### UARMICR #### [facility] [address] [place] [address] Dr. Gasper Lamystals LM Nom (Urine sed)NONE SEENNormalNONE SEENCrystal Clinic Orthopedic CenterComascension [place] on above:Performed By: #### UARMICR #### [facility] [address] [place] [address] Dr. Jackman ChangEpithelial cells LM Ql (Urine sed)FEWAbnormalNONE SEEN /RAREThe [facility] on above:Performed By: #### UARMICR #### [facility] [address] [place] [address] Dr. Gasper TorresE SEENNormalNONE SEENCrystal Clinic Orthopedic CenterComascension [place] on above:Performed By: #### UARMICR #### [facility] [address] [place] [address] Dr. Gasper LockettAitstGRL1-8Jzdodd8-4Uqd [facility] on above:Performed By: #### UARMICR #### [facility] [address] [place] [address] Dr. Gasper VinsonFifkaMWT35-29TzhzirgyZALR SEENThe [facility] HospitalComment on above: Performed By: #### UARMICR #### [facility] [address] [place] [address] Dr. Gasper GarberPROF CHEM 8 (BAS METB)on 43-01-2152Smknh gap [Moles/Vol]13.5 mmol/LNormalThe [facility] HospitalComment on above:Performed By: #### PT, PTT #### [facility] [address] [place] [address] Dr. Gasper GarberCalcium [Mass/Vol]9.6 mg/dLNormal8.5-10.1The [facility] Comment on above:Performed By: #### PT, PTT #### [facility] [address] [place] [address] Dr. Gasper GarberChloride [Moles/Vol]102 mmol/QZgygot68-168Auw [facility] Comment on above:Performed By: #### PT, PTT #### [facility] [address] [place] [address] Dr. Gasper GarberCO2 [Moles/Vol]29.0 mmol/LPohccd62.0-32.0The [facility] Comment on above:Performed By: #### PT, PTT #### [facility] [address] [place] [address] Dr. Gasper GarberCreatinine [Mass/Vol]2.05 mg/dLCritically high0.55-1.02The [facility] HospitalComment on above:Performed By: #### PT, PTT #### [facility] [address] [place] [address] Dr. Gasper RankinGFR-AF XOIVCOYW79 mL/min/1.88p2Weafvpwhwt low>=60The [facility] HospitalComment on above:Performed By: #### PT, PTT #### [facility] [address] [place] [address] Dr. Gasper RankinGFR-NON AF SUEOEKKF43 mL/min/1.37g5Boizjsanap low>=60The [facility] HospitalComment on above:Performed By: #### PT, PTT #### [facility] [address] [address] [address] Gasper GarberGlucose [Mass/Vol]203 mg/dLCritically rxdm80-435Vcw [facility] HospitalComment on above:Performed By: #### PT, PTT #### [facility] [address] [address] [address] Gasper GarberPotassium [Moles/Vol]4.5 mmol/LNormal3.5-5.1The [facility] Comment on above:Performed By: #### PT, PTT #### [facility] [address] [address] [address] Gasper GarberSodium [Moles/Vol]140 mmol/HUlauqf025-814Enk [facility] Comment on above:Performed By: #### PT, PTT #### [facility] [address] [place] [address] Dr. Gasper GarberUrea nitrogen [Mass/Vol]34.0 mg/dLCritically high7.0-18.0The [facility] HospitalComment on above:Performed By: #### PT, PTT #### [facility] [address] [place] [address] Dr. Gasper Aguayo nitrogen/Creatinine [Mass ratio]16.6 mg/mgNormalThe [facility] HospitalComment on above:Performed By: #### PT, PTT #### [facility] [address] [place] [address] Dr. Gasper Wilson [id number] peptide B (Bld) [Mass/Vol]1454.0 pg/mLCritically high<=900.0The [facility] HospitalComment on above:Performed By: #### TONI LESLIERO #### [facility] [address] [place] [address] Dr. Gasper Su AUTO DIFFon [id number] #0.1 103/ulNormal0.0-0.1The [facility] HospitalComment on above:Performed By: #### JOANNE LESLIEICRO #### [facility] [address] [place] [address] Dr. Yilan ChangBasophils/100 WBC (Bld)0.7 %Normal0.2-2.0The [facility] Comment on above:Performed By: #### TONI LESLIERO #### [facility] [address] [place] [address] Dr. Gasper Bennett #0.3 103/ulNormal0.0-0.7The [facility] HospitalComment on above: Performed By: #### ANUJ UMICRO #### [facility] [address] [place] [address] Dr. Gasper Rankinosinophils/100 WBC (Bld)4.3 %Normal0.9-7.0The [facility] Comment on above:Performed By: #### ANUJ UMICRO #### [facility] [address] [place] [address] Dr. Gasper Rankinrythrocyte distribution width (RBC) [Ratio]13.0 %Zoebxx22.0-15.0 The [facility] HospitalComment on above:Performed By: #### ANUJ UMICRO #### [facility] [address] [place] [address] Dr. Gasper GarberHematocrit (Bld) [Volume fraction]34.5 %Critically low36.0-48.0 The [facility] HospitalComment on above:Performed By: #### JOANNE LESLIEICRO #### [facility] [address] [place] [address] Dr. Gasper GarberHemoglobin (Bld) [Mass/Vol]11.0 g/dLCritically low12.0-16.0The [facility] HospitalComment on above:Performed By: #### ANUJ UMICRO #### [facility] [address] [place] [address] Dr. Gasper Moreira #0.02 10e3/ulNormal0.00-0.03The [facility] HospitalComment on above:Performed By: #### ANUJ UMICRO #### [facility] [address] [place] [address] Dr. Gasper Moreira %0.3 %Normal0.0-0.5The [facility] HospitalComment on above: Performed By: #### BERNIE LESLIE #### [facility] [address] [place] [address] Dr. Gasper Hagan #1.1 103/ulCritically low1.2-3.8The [facility] Comment on above:Performed By: #### TONI LESLIERO #### [facility] [address] [place] [address] Dr. Gasper Westhocytes/100 WBC (Bld)14.3 %Critically low20.5-60.0The [facility]Comment [facility]:Performed By: #### TONI LESLIERO #### [facility] [address] [place] [address] Dr. Gasper Bardales DIFF REQNONormalThe [facility] HospitalComment on above: Performed By: #### TONI LESLIERO #### [facility] [address] [place] [address] Dr. Gasper Zayas (RBC) [Entitic mass]30.9 ciFtvlmk69.7-34.0The [facility] HospitalComment on above:Performed By: #### TONI LESLIERO #### [facility] [address] [place] [address] Dr. Gasper Zayas (RBC) [Mass/Vol]31.9 g/tVZfckvd04.9-35.2The [facility] HospitalComment on above:Performed By: #### TONI LESLIERO #### [facility] [address] [place] [address] Dr. Gasper Zayas (RBC) [Entitic vol]96.9 lZLcyzsc80.0-99.0The [facility] HospitalComment on above:Performed By: #### ANUJ UMICRO #### [facility] [address] [place] [address] Dr. Gasper Suarez #0.7 103/ulNormal0.3-0.8The [facility] HospitalComment on above:Performed By: #### ANUJ UMICRO #### [facility] [address] [place] [address] Dr. Gasper Laraocytes/100 WBC (Bld)9.3 %Normal1.7-12.0The [facility] Comment on above:Performed By: #### ANUJ UMICRO #### [facility] [address] [place] [address] Dr. Gasper KnowlesUT #5.4 103/ulNormal1.4-6.5The [facility] HospitalComment on above:Performed By: #### ANUJ UMICRO #### [facility] [address] [place] [address] Dr. Gasper Knowlesutrophils/100 WBC (Bld)71.1 %Pxsugv17.0-75.0The [facility] HospitalComment on above:Performed By: #### ANUJ UMICRO #### [facility] [address] [place] [address] Dr. Gasper GarberPlatelet mean volume (Bld) [Entitic vol]10.2 fLNormal9.5-13.5The [facility] HospitalComment on above:Performed By: #### ANUJ UMICRO #### [facility] [address] [place] [address] Dr. Gasper GarberPLT284 103/zlWejbgc793-214Bhk [facility] HospitalComment on above: Performed By: #### ANUJ UMICRO #### [facility] [address] [place] [address] Dr. Gasper GarberRBC3.56 106/ulCritically low4.20-5.40The [facility] HospitalComment on above:Performed By: #### ANUJ UMICRO #### [facility] [address] [place] [address] Dr. Gasper GarberWBC7.6 103/ulNormal4.0-11.0The [facility] HospitalComment on above: Performed By: #### ANUJ UMICRO #### [facility] [address] [place] [address] Dr. Gasper Valdivia CHEM 8 (BAS METB)on 88-94-4723Zxxet gap [Moles/Vol]15.3 mmol/LNormalThe [facility] HospitalComment on above:Performed By: #### ANUJ UMICRO #### [facility] [address] [address] [address] Gasper GarberCalcium [Mass/Vol]9.1 mg/dLNormal8.5-10.1The [facility] Comment on above:Performed By: #### ANUJ UMICRO #### [facility] [address] [address] [address] Gasper GarberChloride [Moles/Vol]100 mmol/GMlrvqe40-286NyiCrystal Clinic [facility]opedic Center Comment on above:Performed By: #### ANUJ UMICRO #### [facility] [address] [place] [address] Dr. Gasper GarberCO2 [Moles/Vol]26.8 mmol/TVnlmsi90.0-32.0The [facility] Comment on above:Performed By: #### ANUJ UMICRO #### [facility] [address] [address] [address] Gasper GarberCreatinine [Mass/Vol]2.83 mg/dLCritically high0.55-1.02The [facility] HospitalComment on above:Performed By: #### ANUJ UMICRO #### [facility] [address] [address] [address] Gasper RankinGFR-AF DDZMYOMW30 mL/min/1.52y2Vwmopajsog low>=60The [facility] HospitalComment on above:Performed By: #### ERUR, UMICRO #### [facility] [address] [address] [address] Gasper RankinGFR-NON AF HDAEVSOS22 mL/min/1.64k2Etbqvoylpq low>=60The [facility] HospitalComment on above:Performed By: #### ERUR, UMICRO #### [facility] [address] [address] [address] Gasper GarberGlucose [Mass/Vol]141 mg/dLCritically aelw88-717Kuz [facility] HospitalComment on above:Performed By: #### BERNIE LESLIE #### [facility] [address] [place] [address] Dr. Gasper GarberPotassium [Moles/Vol]4.1 mmol/LNormal3.5-5.1[facility] Comment on above:Performed By: #### BERNIE LESLIE #### [facility] [address] [place] [address] Dr. Gasper GarberSodium [Moles/Vol]138 mmol/YEvbubt800-518CjkCrystal Clinic Orthopedic Center Comment on above:Performed By: #### BERNIE LESLIE #### [facility] [address] [place] [address] Dr. Gasper GarberUrea nitrogen [Mass/Vol]48.0 mg/dLCritically high7.0-18.0The [facility] HospitalComment on above:Performed By: #### BERNIE LESLIE #### [facility] [address] [place] [address] Dr. Gasper GarberUrea nitrogen/Creatinine [Mass ratio]17.0 mg/mgNormalThRegency Hospital CompanyComment on above:Performed By: #### BERNIE LESLIE #### [facility] [address] [place] [address] Dr. Gasper GarberCULTVALERIA URINEon 35-70-8365WXFFWQY URINEIsolate 1 Klebsiella pneumoniae >100,000 cfu/mL of ORGANISM [...] <=0.12 S F Nitrofurantoin 64 I F Trimethoprim/Sulfamethoxazole <=20 S FNormalCrystal Clinic Orthopedic CenterComment on above:Performed By: #### ACETON #### [facility] [address] [place] [address] Dr. Gasper Wilson 22-90-6719Gujadqstzgi peptide B (Bld) [Mass/Vol]2592.0 pg/mLCritically high<=900.0The [facility] HospitalComment on above:Performed By: #### URCX #### [facility] [address] [place] [address] Dr. Gasper Su AUTO DIFFon 16-14-4766MZLO #0.0 103/ulNormal0.0-0.1The [facility] HospitalComment on above:Performed By: #### LACT #### [facility] [address] [place] [address] Dr. Gasper GarberBasophils/100 WBC (Bld)0.4 %Normal0.2-2.0The [facility] Comment on above:Performed By: #### LACT #### [facility] [address] [place] [address] Dr. Gasper Bennett #0.3 103/ulNormal0.0-0.7The [facility] Hospitalment on above: Performed By: #### LACT #### [facility] [address] [place] [address] Dr. Gasper Rankinosinophils/100 WBC (Bld)4.3 %Normal0.9-7.0The [facility] Comment on above:Performed By: #### LACT #### [facility] [address] [place] [address] Dr. Gasper Rankinrythrocyte distribution width (RBC) [Ratio]12.5 %Fgvhjx81.0-15.0 The [facility] HospitalComment on above:Performed By: #### LACT #### [facility] [address] [place] [address] Dr. Gasper GarberHematocrit (Bld) [Volume fraction]30.3 %Critically low36.0-48.0 The [facility] HospitalComment on above:Performed By: #### LACT #### [facility] [address] [address] [address] Gasper GarberHemoglobin (Bld) [Mass/Vol]9.8 g/dLCritically low12.0-16.0The [facility] HospitalComment on above:Performed By: #### LACT #### [facility] [address] [place] [address] Dr. Gasper Moreira #0.02 10e3/ulNormal0.00-0.03The [facility] HospitalComment on above:Performed By: #### LACT #### [facility] [address] [place] [address] Dr. Gasper Moreira %0.3 %Normal0.0-0.5The [facility] HospitalComment on above: Performed By: #### LACT #### [facility] [address] [place] [address] Dr. Gasper Hagan #1.5 103/ulNormal1.2-3.8The [facility] HospitalComment on above:Performed By: #### LACT #### [facility] [address] [place] [address] Dr. Gasper Westhocytes/100 WBC (Bld)19.8 %Critically low20.5-60.0The [facility] HospitalComasc[facility] on above:Performed By: #### LACT #### [facility] [address] [place] [address] Dr. Gapser MunguiaUAL DIFF REQNONormalThe [facility] HospitalComment on above: Performed By: #### LACT #### [facility] [address] [place] [address] Dr. Gasper Zayas (RBC) [Entitic mass]31.3 jwTjgftq07.7-34.0The [facility] HospitalComment on above:Performed By: #### LACT #### [facility] [address] [place] [address] Dr. Gasper Zayas (RBC) [Mass/Vol]32.3 g/lJQmdnpg20.9-35.2The [facility] HospitalComment on above:Performed By: #### LACT #### [facility] [address] [place] [address] Dr. Gasper ZayasV (RBC) [Entitic vol]96.8 fMFatdvu89.0-99.0The [facility] HospitalComment on above:Performed By: #### LACT #### [facility] [address] [place] [address] Dr. Gasper Suarez #0.9 103/ulCritically high0.3-0.8The [facility] Comment on above:Performed By: #### LACT #### [facility] [address] [place] [address] Dr. Gasper Laraocytes/100 WBC (Bld)11.7 %Normal1.7-12.0[facility] Comment on above:Performed By: #### LACT #### [facility] [address] [place] [address] Dr. Gasper Brannon #4.8 103/ulNormal1.4-6.5The [facility] HospitalComment on above:Performed By: #### LACT #### [facility] [address] [place] [address] Dr. Gasper Knowlesutrophils/100 WBC (Bld)63.5 %Jawcse74.0-75.0The [facility] HospitalComment on above:Performed By: #### LACT #### [facility] [address] [place] [address] Dr. Gasper Andrelet mean volume (Bld) [Entitic vol]10.9 fLNormal9.5-13.5The [facility] HospitalComment on above:Performed By: #### LACT #### [facility] [address] [place] [address] Dr. Gasper GarberPLT193 103/kmPyiyqh663-236Cuv [facility] HospitalComment on above: Performed By: #### LACT #### [facility] [address] [place] [address] Dr. Gasper GarberRBC3.13 106/ulCritically low4.20-5.40The [facility] HospitalComment on above:Performed By: #### LACT #### [facility] [address] [address] [address] Gasper GarberWBC7.5 103/ulNormal4.0-11.0The [facility] HospitalComment on above: Performed By: #### LACT #### [facility] [address] [place] [address] Dr. Gasper GarberPOINT OF CARE GLUCOSEon 74-65-2343Dyeelue [Mass/Vol]244 mg/dL Critically eynu87-371Jam [facility] HospitalComment on above:Performed By: #### LACT #### [facility] [address] [place] [address] Dr. Gasper GarberGlucose [Mass/Vol]151 mg/dLCritically kmfw11-916Rsz [facility] HospitalComment on above:Performed By: #### ERURBERNIE #### [facility] [address] [place] [address] Dr. Gasper GarberPROF 14(COMP METB)on 70-53-9666Xnmjscw [Mass/Vol]2.9 g/dL Critically low3.4-5.0The [facility] HospitalComment on above:Performed By: #### URCX #### [facility] [address] [place] [address] Dr. Gasper GarberAlbumin/Globulin [Mass ratio]1.0 {ratio}NormalThe [facility] HospitalComment on above:Performed By: #### URCX #### [facility] [address] [place] [address] Dr. Gasper Boss [Catalytic activity/Vol]63 U/QWvxkjm20-429Oli [facility] HospitalComment on above:Performed By: #### URCX #### [facility] [address] [place] [address] Dr. Gasper Alamo [Catalytic activity/Vol]33 U/LVohsfv55-70Usx [facility] HospitalComment on above:Performed By: #### URCX #### [facility] [address] [place] [address] Dr. Gasper Danielle gap [Moles/Vol]13.1 mmol/LNormalThe [facility] Comment on above:Performed By: #### URCX #### [facility] [address] [place] [address] Dr. Gasper GarberAST [Catalytic activity/Vol]30 U/BIebrbe87-86Hrk [facility] HospitalComment on above:Performed By: #### URCX #### [facility] [address] [place] [address] Dr. Gasper GarberBilirubin [Mass/Vol]0.3 mg/dLNormal0.2-1.0[facility] Comment on above:Performed By: #### URCX #### [facility] [address] [place] [address] Dr. Gasper GarberCalcium [Mass/Vol]8.7 mg/dLNormal8.5-10.1[facility] Comment on above:Performed By: #### URCX #### [facility] [address] [place] [address] Dr. Gasper GarberChloride [Moles/Vol]109 mmol/LCritically dysl74-643Fng [facility] HospitalComment on above:Performed By: #### URCX #### [facility] [address] [place] [address] Dr. Gasper GarberCO2 [Moles/Vol]24.5 mmol/QMiwmbx05.0-32.0[facility] Comment on above:Performed By: #### URCX #### [facility] [address] [place] [address] Dr. Gasper GarberCreatinine [Mass/Vol]1.33 mg/dLCritically high0.55-1.02The [facility] HospitalComment on above:Performed By: #### URCX #### [facility] [address] [place] [address] Dr. Gasper RankinGFR-AF QDUKYUQH97 mL/min/1.15n6Utczfdszxl low>=60The [facility] HospitalComment on above:Performed By: #### URCX #### [facility] [address] [place] [address] Dr. Yilan ChangEGFR-NON AF XEJFKOMU94 mL/min/1.95e5Sytyzntbky low>=60The [facility] HospitalComment on above:Performed By: #### URCX #### [facility] [address] [place] [address] Dr. Gasper GarberGlobulin (S) [Mass/Vol]3.0 g/dLNoTriHealth Bethesda North HospitalComment on above:Performed By: #### URCX #### [facility] [address] [place] [address] Dr. Gasper GarberGlucose [Mass/Vol]142 mg/dLCritically sxth67-939Dcb [facility] HospitalComment on above:Performed By: #### URCX #### [facility] [address] [place] [address] Dr. Gasper GarberPotassium [Moles/Vol]3.6 mmol/LNormal3.5-5.1The [facility] Comment on above:Performed By: #### URCX #### [facility] [address] [place] [address] Dr. Gasper GarberProtein [Mass/Vol]5.9 g/dLCritically low6.4-8.2The [facility] HospitalComment on above:Performed By: #### URCX #### [facility] [address] [place] [address] Dr. Gasper GarberSodium [Moles/Vol]143 mmol/GUzgnxs350-636Qrx [facility] Comment on above:Performed By: #### URCX #### [facility] [address] [place] [address] Dr. Gasper GarberUrea nitrogen [Mass/Vol]25.0 mg/dLCritically high7.0-18.0The [facility] HospitalComment on above:Performed By: #### URCX #### [facility] [address] [place] [address] Dr. Gasper GarberUrea nitrogen/Creatinine [Mass ratio]18.8 mg/mgNoTriHealth Bethesda North HospitalComment on above:Performed By: #### URCX #### [facility] [address] [place] [address] Dr. Gasper Wilson 92-52-2592Tafqwvuqgmb peptide B (Bld) [Mass/Vol]761.0 pg/mL Normal<=900.0[facility]opedic CenterComment on above:Performed By: #### PT, PTT #### [facility] [address] [place] [address] Dr. Gasper Su AUTO DIFFon [id number] #0.1 103/ulNormal0.0-0.1The [facility] HospitalComment on above:Performed By: #### LACT #### [facility] [address] [place] [address] Dr. Gasper GarberBasophils/100 WBC (Bld)0.6 %Normal0.2-2.0[facility] Comment on above:Performed By: #### LACT #### [facility] [address] [place] [address] Dr. Gasper Bennett #0.2 103/ulNormal0.0-0.7The [facility] HospitalComment on above: Performed By: #### LACT #### [facility] [address] [place] [address] Dr. Gasper GarberPerformed By: #### PT, PTT #### [facility] [address] [place] [address] Dr. Gasper Rankinosinophils/100 WBC (Bld)2.3 %Normal0.9-7.0[facility] Comment on above:Performed By: #### LACT #### [facility] [address] [place] [address] Dr. Gasper Rankinrythrocyte distribution width (RBC) [Ratio]12.3 %Bshylk71.0-15.0 The [facility] HospitalComment on above:Performed By: #### LACT #### [facility] [address] [place] [address] Dr. Gasper GarberHematocrit (Bld) [Volume fraction]32.3 %Critically low36.0-48.0 The [facility] HospitalComment on above:Performed By: #### LACT #### [facility] [address] [address] [address] Gasper aGrberHemoglobin (Bld) [Mass/Vol]10.3 g/dLCritically low12.0-16.0The [facility] HospitalComment on above:Performed By: #### LACT #### [facility] [address] [place] [address] Dr. Gasper Moreira #0.01 10e3/ulNormal0.00-0.03The [facility] HospitalComment on above:Performed By: #### LACT #### [facility] [address] [place] [address] Dr. Gasper Moreira %0.1 %Normal0.0-0.5The [facility] HospitalComment on above: Performed By: #### LACT #### [facility] [address] [place] [address] Dr. Gasper Hagan #1.1 103/ulCritically low1.2-3.8The [facility] Comment on above:Performed By: #### LACT #### [facility] [address] [place] [address] Dr. Gasper Westhocytes/100 WBC (Bld)12.2 %Critically low20.5-60.0The [facility] HospitalComment on above:Performed By: #### LACT #### [facility] [address] [place] [address] Dr. Gasper MunguiaUAL DIFF REQNONormalThe [facility] HospitalComment on above: Performed By: #### LACT #### [facility] [address] [place] [address] Dr. Gasper GarberPerformed By: #### PT, PTT #### [facility] [address] [place] [address] Dr. Gasper Nix (RBC) [Entitic mass]30.8 ztDlfarz09.7-34.0The [facility] HospitalComment on above:Performed By: #### LACT #### [facility] [address] [place] [address] Dr. Gasper Zayas (RBC) [Mass/Vol]31.9 g/lOLuuuqn53.9-35.2The [facility] HospitalComment on above:Performed By: #### LACT #### [facility] [address] [place] [address] Dr. Gasper Scott (RBC) [Entitic vol]96.7 fNPfptew90.0-99.0The [facility] HospitalComment on above:Performed By: #### LACT #### [facility] [address] [place] [address] Dr. Gasper Suarez #0.8 103/ulNormal0.3-0.8The [facility] HospitalComment on above:Performed By: #### LACT #### [facility] [address] [place] [address] Dr. Gasper Laraocytes/100 WBC (Bld)8.8 %Normal1.7-12.0The [facility] Comment on above:Performed By: #### LACT #### [facility] [address] [place] [address] Dr. Gasper Brannon #6.5 103/ulNormal1.4-6.5The [facility] HospitalComment on above:Performed By: #### LACT #### [facility] [address] [place] [address] Dr. Gasper Knowlesutrophils/100 WBC (Bld)76.0 %Critically high43.0-75.0The [facility] HospitalComment on above:Performed By: #### LACT #### [facility] [address] [place] [address] Dr. Gasper Paz mean volume (Bld) [Entitic vol]10.6 fLNormal9.5-13.5The [facility] HospitalComment on above:Performed By: #### LACT #### [facility] [address] [place] [address] Dr. Gasper NicholsonT214 103/hqBivrjh688-296Qyc [facility] HospitalComment on above: Performed By: #### LACT #### [facility] [address] [place] [address] Dr. Gasper OlmosC3.34 106/ulCritically low4.20-5.40The [facility] HospitalComment on above:Performed By: #### LACT #### [facility] [address] [address] [address] Gasper GarberWBC8.6 103/ulNormal4.0-11.0The [facility] HospitalComment on above: Performed By: #### LACT #### [facility] [address] [address] [address] Gasper MedelSO #0.0 103/ulNormal0.0-0.1The [facility] HospitalComment on above:Performed By: #### PT, PTT #### [facility] [address] [place] [address] Dr. Gasper GarberBasophils/100 WBC (Bld)0.4 %Normal0.2-2.0The [facility] Comment on above:Performed By: #### PT, PTT #### [facility] [address] [place] [address] Dr. Gasper Rankinosinophils/100 WBC (Bld)2.5 %Normal0.9-7.0The [facility] Comment on above:Performed By: #### PT, PTT #### [facility] [address] [place] [address] Dr. Gasper Rankinrythrocyte distribution width (RBC) [Ratio]12.4 %Rxftma95.0-15.0 The [facility] HospitalComment on above:Performed By: #### PT, PTT #### [facility] [address] [place] [address] Dr. Gasper GarberHematocrit (Bld) [Volume fraction]29.3 %Critically low36.0-48.0 The [facility] HospitalComment on above:Performed By: #### PT, PTT #### [facility] [address] [place] [address] Dr. Gasper GarberHemoglobin (Bld) [Mass/Vol]9.5 g/dLCritically low12.0-16.0The [facility] HospitalComment on above:Performed By: #### PT, PTT #### [facility] [address] [place] [address] Dr. Gasper Moreira #0.02 10e3/ulNormal0.00-0.03The [facility] HospitalComment on above:Performed By: #### PT, PTT #### [facility] [address] [place] [address] Dr. Gasper Moreira %0.2 %Normal0.0-0.5The [facility] HospitalComasc[facility] on above: Performed By: #### PT, PTT #### [facility] [address] [place] [address] Dr. Gasper Hagan #1.3 103/ulNormal1.2-3.8The [facility]Com[facility] on above:Performed By: #### PT, PTT #### [facility] [address] [place] [address] Dr. Gasper Westhocytes/100 WBC (Bld)16.4 %Critically low20.5-60.0The [facility] on above:Performed By: #### PT, PTT #### [facility] [address] [place] [address] Dr. Gasper Nix (RBC) [Entitic mass]31.3 fnPbzwaf99.7-34.0The [facility]ment on above:Performed By: #### PT, PTT #### [facility] [address] [place] [address] Dr. Gasper Zayas (RBC) [Mass/Vol]32.4 g/gGVbzrep61.9-35.2The [facility] HospitalComment on above:Performed By: #### PT, PTT #### [facility] [address] [place] [address] Dr. Gasper Scott (RBC) [Entitic vol]96.4 xFVvgwfm40.0-99.0The [facility] on above:Performed By: #### PT, PTT #### [facility] [address] [place] [address] Dr. Gasper Suarez #0.9 103/ulCritically high0.3-0.8The [facility] Comment on above:Performed By: #### PT, PTT #### [facility] [address] [place] [address] Dr. Gasper Laraocytes/100 WBC (Bld)10.5 %Normal1.7-12.0The [facility] Comment on above:Performed By: #### PT, PTT #### [facility] [address] [place] [address] Dr. Gasper Brannon #5.7 103/ulNormal1.4-6.5The [facility] HospitalComment on above:Performed By: #### PT, PTT #### [facility] [address] [place] [address] Dr. Gasper Knowlesutrophils/100 WBC (Bld)70.0 %Etugjj25.0-75.0The [facility] HospitalComment on above:Performed By: #### PT, PTT #### [facility] [address] [place] [address] Dr. Gasper Paz mean volume (Bld) [Entitic vol]10.9 fLNormal9.5-13.5The [facility] HospitalComment on above:Performed By: #### PT, PTT #### [facility] [address] [place] [address] Dr. Gasper GarberPLT203 103/wwSfezfs276-321Pay [facility] HospitalComment on above: Performed By: #### PT, PTT #### [facility] [address] [place] [address] Dr. Gasper GarberRBC3.04 106/ulCritically low4.20-5.40The [facility] HospitalComment on above:Performed By: #### PT, PTT #### [facility] [address] [place] [address] Dr. Gasper GarberWBC8.2 103/ulNormal4.0-11.0The [facility] HospitalComment on above: Performed By: #### PT, PTT #### [facility] [address] [place] [address] Dr. Gasper Trevino BLOODon 40-47-0476Wdtinvdbfpm examination of blood, cultureCulture Observations: NO GROWTH AT 5 DAYS.NormalMarietta Memorial Hospital HospitalComment on above:Performed By: #### [id number] #### [facility] [address] [place] [address] Dr. Gasper GarberMicroscopic examination of blood, cultureCulture Observations: NO GROWTH AT 5 DAYS.NormalThe [facility] HospitalComment on above:Performed By: #### ACETON #### [facility] [address] [place] [address] Dr. Gasper GarberFLORALA [facility] GLUCOSEon 89-52-7431Pnptguc [Mass/Vol]155 mg/dL Critically okaj61-873Twh [facility] HospitalComment on above:Performed By: #### PT, PTT #### [facility] [address] [place] [address] Dr. Gasper GarberGlucose [Mass/Vol]165 mg/dLCritically qdzb32-935Joe [facility] HospitalComment on above:Performed By: #### POCGLUC #### [facility] [address] [place] [address] Dr. Gasper GarberGlucose [Mass/Vol]232 mg/dLCritically lbil45-458Vtb [facility] HospitalComment on above:Performed By: #### ERUR, UMICRO #### [facility] [address] [place] [address] Dr. Gasper GarberPROF 14(COMP METB)on 06-62-3600Wxcqdbs [Mass/Vol]2.9 g/dL Critically low3.4-5.0The [facility] HospitalComment on above:Performed By: #### PT, PTT #### [facility] [address] [place] [address] Dr. Gasper GarberAlbumin/Globulin [Mass ratio]1.0 {ratio}NormalCrystal Clinic Orthopedic CenterComment on above:Performed By: #### PT, PTT #### [facility] [address] [place] [address] Dr. Gasper GómezP [Catalytic activity/Vol]62 U/FUtbede68-204Ddk [facility] HospitalComment on above:Performed By: #### PT, PTT #### [facility] [address] [place] [address] Dr. Gasper GómezT [Catalytic activity/Vol]34 U/EYxjtmz77-24Chs [facility] HospitalComment on above:Performed By: #### PT, PTT #### [facility] [address] [place] [address] Dr. Gasper Gunteron gap [Moles/Vol]10.8 mmol/LNormalCrystal Clinic [facility] Center Comment on above:Performed By: #### PT, PTT #### [facility] [address] [place] [address] Dr. Gasper GarberAST [Catalytic activity/Vol]14 U/LCritically mpk55-12Tkn [facility] HospitalComment on above:Performed By: #### PT, PTT #### [facility] [address] [place] [address] Dr. Gasper GarberBilirubin [Mass/Vol]0.4 mg/dLNormal0.2-1.0[facility] Comment on above:Performed By: #### PT, PTT #### [facility] [address] [place] [address] Dr. Gasper GarberCalcium [Mass/Vol]8.4 mg/dLCritically low8.5-10.1The [facility] HospitalComment on above:Performed By: #### PT, PTT #### [facility] [address] [place] [address] Dr. Gasper GarberChloride [Moles/Vol]105 mmol/MYnwcam98-636Uhw [facility] Comment on above:Performed By: #### PT, PTT #### [facility] [address] [place] [address] Dr. Gasper GarberCO2 [Moles/Vol]26.3 mmol/AQrjwbu58.0-32.0The [facility] Comment on above:Performed By: #### PT, PTT #### [facility] [address] [place] [address] Dr. Gasper GarberCreatinine [Mass/Vol]2.20 mg/dLCritically high0.55-1.02The [facility] HospitalComment on above:Performed By: #### PT, PTT #### [facility] [address] [address] [address] Gasper RankinGFR-AF ROWVUYOV17 mL/min/1.75p2Hfeghzzzgn low>=60The [facility] HospitalComment on above:Performed By: #### PT, PTT #### [facility] [address] [address] [address] Gasper RankinGFR-NON AF KOWBKCTZ88 mL/min/1.83p4Mouhxabfhp low>=60The [facility] HospitalComment on above:Performed By: #### PT, PTT #### [facility] [address] [place] [address] Dr. Gasper GarberGlobulin (S) [Mass/Vol]2.9 g/dLNormalThe [facility] HospitalComment on above:Performed By: #### PT, PTT #### [facility] [address] [place] [address] Dr. Gasper GarberGlucose [Mass/Vol]167 mg/dLCritically yxbx81-092Hpv [facility] HospitalComment on above:Performed By: #### PT, PTT #### [facility] [address] [place] [address] Dr. Gasper GarberPotassium [Moles/Vol]3.1 mmol/LCritically low3.5-5.1The [facility] HospitalComment on above:Performed By: #### PT, PTT #### [facility] [address] [place] [address] Dr. Gasper GarberProtein [Mass/Vol]5.8 g/dLCritically low6.4-8.2The [facility] HospitalComment on above:Performed By: #### PT, PTT #### [facility] [address] [place] [address] Dr. Gasper GarberSodium [Moles/Vol]139 mmol/TZhzona440-074Fow [facility] Comment on above:Performed By: #### PT, PTT #### [facility] [address] [address] [address] Gasper Aguayo nitrogen [Mass/Vol]41.0 mg/dLCritically high7.0-18.0The [facility] HospitalComment on above:Performed By: #### PT, PTT #### [facility] [address] [address] [address] Gasper Aguayo nitrogen/Creatinine [Mass ratio]18.6 mg/mgNormalThe [facility] HospitalComment on above:Performed By: #### PT, PTT #### [facility] [address] [place] [address] Dr. Gasper Su AUTO DIFFon 28-98-5518SVVQ #0.0 103/ulNormal0.0-0.1The [facility] HospitalComment on above:Performed By: #### PT, PTT #### [facility] [address] [place] [address] Dr. Gasper GarberBasophils/100 WBC (Bld)0.4 %Normal0.2-2.0[facility] Comment on above:Performed By: #### PT, PTT #### [facility] [address] [place] [address] Dr. Gasper Bennett #0.2 103/ulNormal0.0-0.7The [facility] HospitalComment on above: Performed By: #### PT, PTT #### [facility] [address] [place] [address] Dr. Gasper Rankinosinophils/100 WBC (Bld)1.6 %Normal0.9-7.0The [facility] Comment on above:Performed By: #### PT, PTT #### [facility] [address] [place] [address] Dr. Gasper Rankinrythrocyte distribution width (RBC) [Ratio]12.4 %Hahnjt77.0-15.0 The [facility] HospitalComment on above:Performed By: #### PT, PTT #### [facility] [address] [place] [address] Dr. Gasper GarberHematocrit (Bld) [Volume fraction]34.7 %Critically low36.0-48.0 The [facility] HospitalComment on above:Performed By: #### PT, PTT #### [facility] [address] [place] [address] Dr. Gasper GarberHemoglobin (Bld) [Mass/Vol]11.4 g/dLCritically low12.0-16.0The [facility] HospitalComment on above:Performed By: #### PT, PTT #### [facility] [address] [place] [address] Dr. Gasper Moreira #0.02 10e3/ulNormal0.00-0.03The [facility] HospitalComment on above:Performed By: #### PT, PTT #### [facility] [address] [place] [address] Dr. Gasper Moreira %0.2 %Normal0.0-0.5The [facility] HospitalComment on above: Performed By: #### PT, PTT #### [facility] [address] [place] [address] Dr. Gasper Hagan #1.6 103/ulNormal1.2-3.8The [facility] HospitalComment on above:Performed By: #### PT, PTT #### [facility] [address] [place] [address] Dr. Gasper Westhocytes/100 WBC (Bld)17.7 %Critically low20.5-60.0The [facility] HospitalComment on above:Performed By: #### PT, PTT #### [facility] [address] [place] [address] Dr. Gasper MunguiaUAL DIFF REQNONormalThe [facility] HospitalComment on above: Performed By: #### PT, PTT #### [facility] [address] [place] [address] Dr. Gasper Nix (RBC) [Entitic mass]31.1 syXwuips81.7-34.0The [facility] HospitalComment on above:Performed By: #### PT, PTT #### [facility] [address] [place] [address] Dr. Gasper Zayas (RBC) [Mass/Vol]32.9 g/hQPewbmq56.9-35.2The [facility] HospitalComment on above:Performed By: #### PT, PTT #### [facility] [address] [place] [address] Dr. Gasper ZayasV (RBC) [Entitic vol]94.8 ePGedhrn78.0-99.0The [facility] HospitalComment on above:Performed By: #### PT, PTT #### [facility] [address] [place] [address] Dr. Gasper Suarez #1.0 103/ulCritically high0.3-0.8The [facility] Comment on above:Performed By: #### PT, PTT #### [facility] [address] [place] [address] Dr. Gasper Laraocytes/100 WBC (Bld)10.3 %Normal1.7-12.0The [facility] Comment on above:Performed By: #### PT, PTT #### [facility] [address] [place] [address] Dr. Gasper Brannon #6.4 103/ulNormal1.4-6.5The [facility] HospitalComment on above:Performed By: #### PT, PTT #### [facility] [address] [place] [address] Dr. Gasper Knowlesutrophils/100 WBC (Bld)69.8 %Iflnet25.0-75.0The [facility] HospitalComment on above:Performed By: #### PT, PTT #### [facility] [address] [place] [address] Dr. Gasper Andrelet mean volume (Bld) [Entitic vol]10.4 fLNormal9.5-13.5The [facility] HospitalComment on above:Performed By: #### PT, PTT #### [facility] [address] [place] [address] Dr. Gasper GarberPLT269 103/tdAbepnv962-159Aiu [facility] HospitalComment on above: Performed By: #### PT, PTT #### [facility] [address] [place], [place] [address] Dr. Gasper GarberRBC3.66 106/ulCritically low4.20-5.40The [facility] HospitalComment on above:Performed By: #### PT, PTT #### [facility] [address] [place], [place] [address] Dr. Gasper GarberWBC9.2 103/ulNormal4.0-11.0The [facility] HospitalComment on above: Performed By: #### PT, PTT #### [facility] [address] [place], [place] [address] Dr. Gasper GarberCT ABD/PELVIS WO CONon [id number] ABD/PELVIS WO CONCT ABDOMEN AND PELVIS WITHOUT CONTRAST HISTORY: Abdominal pain. Black tarry [...] Electronically authenticated by: NASRIN CHIU Date: 2021-07-15 18:16NoTriHealth Bethes[facility] North HospitalCovid-19 PCR (CVDTBH)on [id number]-CoV-2 (COVID-19) RNA ANA LUISA+probe Ql (Unsp spec)Not detectedNormalNOT DETECTEDThe [facility] Comment on above:Result Comment: When diagnostic testing is negative, the [...] for this test is supported by the [place] of Health and Human Service's declaration that circumstances exist to justify the emergency use of in vitro diagnostics for the detection and/or diagnosis of the virus that causes COVID-19. This EUA will remain in effect for the duration of the COVID-19 declaration justifying emergency of IVDs, unless it is terminated or revoked by the FDA (after which the test may no longer be used).Performed By: #### LACT #### [facility] [address] [place] [address] Dr. Gasper Purvis URINE PROFILEon 51-07-1681Qwcuqrdyq Ql (U)NegativeNormal NEGATIVECrystal Clinic Orthopedic CenterComment on above:Performed By: #### ERUR UMICRO #### [facility] [address] [place] [address] Dr. Gasper GarberClarity (U)CLEARNormalCLEARCrystal Clinic Orthopedic CenterComment on above: Performed By: #### ERUR, UMICRO #### [facility] [address] [place] [address] Dr. Gasper Webster (U)LT. YELLOWNormalYELLOWCrystal Clinic Orthopedic CenterComment on above:Performed By: #### ERUR, UMICRO #### [facility] [address] [place] [address] Dr. Gasper Celis micrscopic examination will be performed if indicated. NormalThe [facility] HospitalComment on above:Performed By: #### ERUR, UMICRO #### [facility] [address] [place] [address] Dr. Gasper GarberGlucose Ql (U)NegativeNormalNEGATIVECrystal Clinic Orthopedic CenterComment on above:Performed By: #### ERUR, UMICRO #### [facility] [address] [place] [address] Dr. Gasper GarberHemoglobin Ql (U)NegativeNormalNEGATIVEThe [facility] on above:Performed By: #### TONI LESLIERO #### [facility] [address] [address] [address] Gasper GarberKetones Ql (U)NegativeNormalNEGATIVEThe [facility] HospitalComment on above:Performed By: #### ANUJ UMDINORAHRO #### [facility] [address] [place] [address] Dr. Gasper GarberLEUKOCYTESNegativeNormalNEGATIVEThe [facility] HospitalComment on above:Performed By: #### TONI LESLIERO #### [facility] [address] [place] [address] Dr. Gasper GarberNitrite Ql (U)NegativeNormalNEGATIVEThe [facility] HospitalComment on above:Performed By: #### TONI LESLIERO #### [facility] [address] [place] [address] Dr. Gasper GarberpH (U)5.5 [pH]Normal5-9The [facility] HospitalComment on above: Performed By: #### TONI LESLIERO #### [facility] [address] [place] [address] Dr. Gasper GarberSPEC GRAVITY1.123Jhpqky8.005-<=1.025The [facility] HospitalComment on above:Performed By: #### TONI LESLIERO #### [facility] [address] [place] [address] Dr. Gasper Dailey PROTEINTRACENormalNEGATIVE/ TRACEThe [facility] HospitalComment on above:Performed By: #### TONI LESLIERO #### [facility] [address] [place] [address] Dr. Gasper Hensley MICRO INDINDICATEDNoalThe [facility] HospitalComment on above: Performed By: #### BERNIE LESLIE #### [facility] [address] [place] [address] Dr. Gasper Snider Qn (U)0.2 {Kaushik'U}/dLNormal0.2 - 1.0The [facility] HospitalComment on above:Performed By: #### ERURBERNIE #### [facility] [address] [place] [address] Dr. Gasper Lima T3on 46-21-7294EUWJ T32.45 pg/mlLNormal2.18-3.98The [facility] HospitalComascension [facility]omb on above:Performed By: #### PT, PTT #### [facility] [address] [place] [address] Dr. Gasper Lima T4on 71-54-2984Rkvv T4 [Mass/Vol]1.19 ng/dLNormal0.76-1.46 The [facility] HospitalComment on above:Performed By: #### ACETON #### [facility] [address] [place] [address] Dr. Gasper GeeCTATE/LACTIC ACIDon 31-58-1601Utsxiia [Moles/Vol]2.0 mmol/L Critically high0.4-1.9[facility] on above:Performed By: #### LACT #### [facility] [address] [place] [address] Dr. Gasper GarberLactate [Moles/Vol]4.0 mmol/LCritically high0.4-1.9The [facility] on above:Performed By: #### LACT #### [facility] [address] [place] [address] Dr. Gasper GarberLIPASEon 07-21-8218Qqcnsm [Catalytic activity/Vol]93.0 U/LNormal 73.0-393.0The [facility] HospitalComascension [facility] on above:Performed By: #### ACETON #### [facility] [address] [place] [address] Dr. Gasper GarberVALLEY GROVE OF CARE GLUCOSEon 18-49-1961Mmgmpco [Mass/Vol]200 mg/dL Critically xrcg34-018Jpp [facility] HospitalComment on above:Performed By: #### PT, PTT #### [facility] [address] [address] [address] Gasper GarberPROF 14(COMP METB)on 73-73-4083Bxdpqkc [Mass/Vol]3.5 g/dLNormal 3.4-5.0The [facility] HospitalComment on above:Performed By: #### ACETON #### [facility] [address] [place] [address] Dr. Gasper GarberAlbumin/Globulin [Mass ratio]1.0 {ratio}NormalThe [facility] HospitalComment on above:Performed By: #### ACETON #### [facility] [address] [place] [address] Dr. Gasper GómezP [Catalytic activity/Vol]81 U/WBdmdrs16-696Iqd [facility] HospitalComment on above:Performed By: #### ACETON #### [facility] [address] [place] [address] Dr. Gasper Alamo [Catalytic activity/Vol]43 U/UZkdcww39-82Tiu [facility] HospitalComment on above:Performed By: #### ACETON #### [facility] [address] [place] [address] Dr. Gasper Danielle gap [Moles/Vol]13.6 mmol/LNormalThe [facility] Comment on above:Performed By: #### ACETON #### [facility] [address] [place] [address] Dr. Gasper GarberAST [Catalytic activity/Vol]19 U/BZipggx74-61Hep [facility] HospitalComment on above:Performed By: #### ACETON #### [facility] [address] [place] [address] Dr. Gasper GarberBilirubin [Mass/Vol]0.6 mg/dLNormal0.2-1.0The [facility] Comment on above:Performed By: #### ACETON #### [facility] [address] [place] [address] Dr. Gasper GarberCalcium [Mass/Vol]8.9 mg/dLNormal8.5-10.1[facility] Comment on above:Performed By: #### ACETON #### [facility] [address] [address] [address] Gasper GarberChloride [Moles/Vol]103 mmol/OBxekqi41-675Jmr [facility] Comment on above:Performed By: #### ACETON #### [facility] [address] [address] [address] Gasper GarberCO2 [Moles/Vol]25.9 mmol/QEvrqhm35.0-32.0The [facility] Comment on above:Performed By: #### ACETON #### [facility] [address] [address] [address] Gasper GarberCreatinine [Mass/Vol]2.91 mg/dLCritically high0.55-1.02The [facility] HospitalComment on above:Performed By: #### ACETON #### [facility] [address] [address] [address] Jackman ChangEGFR-AF HSUCEDNK58 mL/min/1.75d1Chfliedixp low>=60The [facility] HospitalComment on above:Performed By: #### ACETON #### [facility] [address] [address] [address] Gasper RankinGFR-NON AF GARFBSKV66 mL/min/1.01l8Ozdxtaffpo low>=60The [facility] HospitalComment on above:Performed By: #### ACETON #### [facility] [address] [address] [address] Gasper GarberGlobulin (S) [Mass/Vol]3.5 g/dLNormalThe [facility] HospitalComment on above:Performed By: #### ACETON #### [facility] [address] [address] [address] Gasper GarberGlucose [Mass/Vol]201 mg/dLCritically jgau07-564Cxz [facility] HospitalComment on above:Performed By: #### ACETON #### [facility] [address] [address] [address] Gasper GarberPotassium [Moles/Vol]3.5 mmol/LNormal3.5-5.1The [facility] Comment on above:Performed By: #### ACETON #### [facility] [address] [place] [address] Dr. Gasper GarberProtein [Mass/Vol]7.0 g/dLNormal6.4-8.2[facility] Comment on above:Performed By: #### ACETON #### [facility] [address] [place] [address] Dr. Gasper GarberSodium [Moles/Vol]139 mmol/VOobrts211-001LisCrystal Clinic Orthopedic Center Comment on above:Performed By: #### ACETON #### [facility] [address] [place] [address] Dr. Gasper Aguayo nitrogen [Mass/Vol]46.0 mg/dLCritically high7.0-18.0[facility]opedic CenterComment on above:Performed By: #### ACETON #### [facility] [address] [place] [address] Dr. Gasper Aguayo nitrogen/Creatinine [Mass ratio]15.8 mg/mgNoTriHealth Bethesda North HospitalComment on above:Performed By: #### ACETON #### [facility] [address] [place] [address] Dr. Gasper Pulliam 31-66-5921IND Coag (PPP) [Relative time]1.03 {INR} NormalCrystal Clinic Orthopedic CenterComment on above:Performed By: #### PT, PTT #### [facility] [address] [place] [address] Dr. Gasper Martino GUIDELINESSEE BELOWProMedica Flower HospitalComment on above:Result Comment: DESIRED INR: 2.0 - 3.0 CONDITIONS NOT LISTED BELOW 2.5 - 3.5 FOR PROSTHETIC HEART VALVE REPLACEMENT 2.5 - 3.5 RECURRENT THROMBOSIS Performed By: #### PT, PTT #### [facility] [address] [place] [address] Dr. Gasper GarberPT Coag (PPP) [Time]11.1 sNormal9.0-11.6ThRegency Hospital Company Comment on above:Performed By: #### PT, PTT #### [facility] [address] [place] [address] Dr. Gasper Marino 66-63-5264bZQV Coag (Bld) [Time]24.2 xQgonhn66.3-36.2The [facility] on above:Performed By: #### PT, PTT #### [facility] [address] [place] [address] Dr. Gasper Aguayo, HIGH SENSITIVITYon 86-00-3536MDYUXX44.9 pg/mLNormal 4.0-51.3The [facility] HospitalComment on above:Result Comment: CUT-OFF POINTS HAVE BEEN ESTABLISHED BASED ON THE FOURTH UNIVERSAL DEFINITIONS OF MYOCARDIAL INFARCTION. THE UPPER REFERENCE LIMIT (URL) OF TROPONIN, DEFINED THE 99TH PERCENTILE OF cTnI DISTRIBUTION IN A REFERENCE POPULATION, HAS BEEN CONFIRMED THE DECISION THRESHOLD FOR [place] DIAGNOSIS.Performed By: #### LACT #### [facility] [address] [place] [address] Dr. Gasper Ackerman 03-40-8560PHV2.864 uIU/mLCritically high0.358-3.740[facility]opedic CenterComment on above:Performed By: #### ACETON #### [facility] [address] [place] [address] Dr. Gasper EDGAREE BELOWProMedica Flower HospitalComment on above: Result Comment: <0.34 UIU/ml HYPERTHYROID 0.34-5.60 UIU/ml EUTHYROID >5.60 UIU/ml HYPOTHYROIDPerformed By: #### ACETON #### [facility] [address] [place] [address] Dr. Gasper MAURICIOon 74-35-2268FFRFFENGFUYXPFRZPmoxkjvfTBQX SEENThe [facility] Community HospitalComment on above:Performed By: #### BERNIE LESLIE #### [facility] [address] [place] [address] Dr. Gasper Crook identified Cx Nom (U)INDICATEDProMedica Flower HospitalComment on above:Performed By: #### TONI LESLIERO #### [facility] [address] [address] [address] Gasper JallohSEENAbnormalNONE SEENCrystal Clinic Orthopedic CenterComment on above: Performed By: #### ERUR, UMICRO #### [facility] [address] [address] [address] Gasper GarberCrystals LM Nom (Urine sed)NONE SEENNormalNONE SEENThe [facility] HospitalComment on above:Performed By: #### ERUR, UMICRO #### [facility] [address] [address] [address] Jackman ChangEpithelial cells LM Ql (Urine sed)RARENormalNONE SEEN /RAREThe [facility] HospitalComment on above:Performed By: #### ERUR, UMICRO #### [facility] [address] [address] [address] Gasper IbarraCOUSIZZY SEENNormalNONE SEENThe [facility] HospitalComment on above:Performed By: #### ERUR, UMICRO #### [facility] [address] [address] [address] Gasper LuqueONE SEENAbnormal0-2The [facility] HospitalComment on above: Performed By: #### ERUEva, UMICRO #### [facility] [address] [address] [address] Gasper GarberWBC2-5AbnormalNONE SEENThe [facility] HospitalComment on above: Performed By: #### ERUR, UMICRO #### [facility] [address] [address] [address] Gasper GarberXR chest 1V portableon 11-05-5420FF chest 1V [facility] [place] [address] [place] [address] XRay Report Signed Patient: Rivka Turner MR#: [id number] : 1945 Acct:[id number] Age/Sex: 75 / F ADM Date: 06/24/21 Loc: Room: [address] [place] [address] Type: DIS IN Attending Dr: Rusty Amor MD Ordering Provider: Marlon Leon, DO, RES Date of Service: 06/24/21 XR/XR [...] Valle Jr., M.D.07/01/2021 9:08 AM Dictation Location: [place] [address] Transcribed By: [facility] 07/01/21 0908 Dictated By: Adarsh Valle Jr, MD 07/01/21 0907 Signed By: 07/01/21 0908[facility] CampusActivated partial thromboplastin time (aPTT) in platelet poor plasma by coagulation aOrdered By: Marlon Leon on 45-97-9859dPPB Coag (PPP) [Time]24.8 s25.1-36.5FChillicothe VA Medical CenterBasophils Auto (Bld) [#/Vol]Ordered By: Marlon Leon on 06-25-2021 Basophils (Bld) [#/Vol]0.0 10*3/uL0.0-0.2FChillicothe VA Medical Center Basophils/100 WBC Auto (Bld)Ordered By: Marlon Leon on 70-46-3277Dovaruaru/100 WBC (Bld)0.3 %[facility] HospitalBlood hemoglobin measurement (mass/volume)Ordered By: Marlon Leon on 63-26-7752Wupmwyompl (Bld) [Mass/Vol] 11.1 g/dL11.8-15.4FChillicothe VA Medical CenterBlood leukocytes automated count (number/volume)Ordered By: Marlon Leon on 81-14-4031LWU (Bld) [#/Vol]10.5 10*3/uL4.5-11.0[facility] HospitalComplete Blood Count Auto Diffon 01-42-5866Scwbmyhqo (Bld) [#/Vol]0.0 10*3/uLNormal0.0-0.2FChillicothe VA Medical CenterComment on above:Result Comment: PERFORMED BY: [facility] [address] [place] [address] PATHOLOGIST [employer] NARGIS CLEMENS M.D.Performed By: #### GLULS #### Point of Care testing ,Basophils/100 WBC (Bld)0.3 %Normal.[facility] Warren HospitalComment on above:Performed By: #### GLULS #### Point of Care testing ,Eosinophils (Bld) [#/Vol]0.0 10*3/uLNormal0.0-0.45[facility]. [facility] Warren HospitalComment on above:Performed By: #### GLULS #### Point of Care testing ,Eosinophils/100 WBC (Bld)0.0 %Normal.[facility] Warren HospitalComment on above:Performed By: #### GLULS #### Point of Care testing ,Erythrocyte distribution width (RBC) [Ratio]12.7 %Pafrwf71.9-15.3FChillicothe VA Medical CenterComment on above:Performed By: #### GLULS #### Point of Care testing ,Hematocrit (Bld) [Volume fraction]32.7 %Low34.0-46.4FChillicothe VA Medical CenterComment on above:Performed By: #### GLULS #### Point of Care testing ,Hemoglobin (Bld) [Mass/Vol]11.1 g/dLLow11.8-15.4FChillicothe VA Medical CenterComment on above:Performed By: #### GLULS #### Point of Care testing ,Lymphocytes (Bld) [#/Vol]0.4 10*3/uLLow1.00-4.8[facility] Warren HospitalComment on above:Performed By: #### GLULS #### Point of Care testing ,Lymphocytes/100 WBC (Bld)4.3 %Normal.[facility] Warren HospitalComment on above:Performed By: #### GLULS #### Point of Care testing ,MCH (RBC) [Entitic mass]31.3 owDedijz06.7-34.3FChillicothe VA Medical Center Comment on above:Performed By: #### GLULS #### Point of Care testing ,MCV (RBC) [Entitic vol]92.1 oKXvvzom31-405AfoxfczaxMercy Health St. Joseph Warren Hospital Comment on above:Performed By: #### GLULS #### Point of Care testing ,Mean Corpuscular HGB Conc34.0 g/qYXqzjky40.0-35.0[facility] Warren HospitalComment on above:Performed By: #### GLULS #### Point of Care testing ,Monocytes (Bld) [#/Vol]0.5 10*3/uLNormal0.0-0.8[facility] HospitalComment on above:Performed By: #### GLULS #### Point of Care testing ,Monocytes/100 WBC (Bld)4.5 %Normal.[facility] HospitalComment on above:Performed By: #### GLULS #### Point of Care testing ,Neutrophils (Bld) [#/Vol]9.6 10*3/uLHigh1.8-7.7FChillicothe VA Medical CenterComment on above:Performed By: #### GLULS #### Point of Care testing ,Neutrophils/100 WBC (Bld)90.9 %Normal.[facility] Warren HospitalComment on above:Performed By: #### GLULS #### Point of Care testing ,Nucleated RBC/100 WBC (Bld) [Ratio]0.0 %Normal0-0.5FChillicothe VA Medical CenterComment on above:Performed By: #### GLULS #### Point of Care testing ,Platelet mean volume (Bld) [Entitic vol]9.0 fLNormal6.3-10.7FChillicothe VA Medical CenterComment on above:Performed By: #### GLULS #### Point of Care testing ,Platelets (Bld) [#/Vol]205 10*3/mXQlqjio177-230ZrnroocedMercy Health St. Joseph Warren HospitalComment on above:Performed By: #### GLULS #### Point of Care testing ,RBC (Bld) [#/Vol]3.55 10*6/uLLow3.60-5.00[facility] Comment on above:Performed By: #### GLULS #### Point of Care testing ,WBC (Bld) [#/Vol]10.5 10*3/uLNormal4.5-11.0[facility] Comment on above:Performed By: #### GLULS #### Point of Care testing ,ECG 12 lead ECGon 27-42-7314DJF 12 lead ECGGLENBEIGH [place] [address] Electrocardiograph Report Signed Patient: Rivka Turner MR#: [id number] : 1945 Acct:[id number] Age/Sex: 75 / F ADM Date: 06/24/21 Loc: Room: [address] [place] [address] Type: DIS IN Attending Dr: Rusty Amor [...] are now present Confirmed by SANG BARRIOS [facility], WIL ([id number]) on 06/25/2021 11:01:31 AM Referred By: Electronically Signed By:WIL DOMÍNGUEZ MD [facility] Transcribed By: MUS Signed By Wil Domínguez MD, FACC 06/25/[address] [place], [place] [address]Eosinophils Auto (Bld) [#/Vol]Ordered By: Marlon Leon on 61-25-6241Wpkbbnfgzgu (Bld) [#/Vol]0.0 10*3/uL 0.0-0.45[facility] HospitalEosinophils/100 WBC Auto (Bld)Ordered By: Marlon Leon on 90-43-6081Kbhlcjtqtuj/100 WBC (Bld)0.0 %[facility] Warren HospitalErythrocyte distribution width Auto (RBC) [Ratio]Ordered By: Marlon Leon on 86-91-7848Jaoubzsjuho distribution width (RBC) [Ratio]12.7 %11.9-15.[address] [facility] Warren HospitalGlucose Glucometer (BldC) [Mass/Vol]Ordered By: Rusty Amor on 31-75-7371Mlcqhvz [Mass/Vol]227 mg/dLMercy Health St. Joseph Warren HospitalComment on above:Random Glucose Reference Range is dependent on time and content of last meal. Glucose of more than 200 mg/dL in a nonstressed, ambulatory subject supports the diagnosis of Diabetes Mellitus.Glucose Poct Glucometerson 84-18-5543Kwlpwld [Mass/Vol]227 mg/dLNoSelect Medical Specialty Hospital - Columbus SouthComment on above:Result Comment: Random Glucose Reference Range is dependent on time and content of last meal. Glucose of more than 200 mg/dL in a nonstressed, ambulatory subject supports the diagnosis of Diabetes Mellitus. PERFORMED BY: [place] [address] PATHOLOGIST [employer]ER NARGIS CLEMENS M.D.Performed By: #### PTT #### [facility] [address] [place] [address] USAGlucose [Mass/Vol]184 mg/dLNoSelect Medical Specialty Hospital - Columbus SouthComment on above:Result Comment: Random Glucose Reference Range is dependent on time and content of last meal. Glucose of more than 200 mg/dL in a nonstressed, ambulatory subject supports the diagnosis of Diabetes Mellitus. PERFORMED BY: [place] [address] PATHOLOGIST [employer] NARGIS CLEMENS M.D.Performed By: #### PTT #### [facility] [address] [place] [address] USAGlucose [Mass/Vol]294 mg/dLNormalMercy Health St. Joseph Warren HospitalComment on above:Result Comment: Random Glucose Reference Range is dependent on time and content of last meal. Glucose of more than 200 mg/dL in a nonstressed, ambulatory subject supports the diagnosis of Diabetes Mellitus. PERFORMED BY: [facility] [address] [place] [address] PATHOLOGIST [employer] ASSEM[employer]ER NARGIS CLEMENS M.D.Performed By: #### GLULS #### Point of Care testing ,Hematocrit Auto (Bld) [Volume fraction]Ordered By: Marlon Leon on 06-25-2021 Hematocrit (Bld) [Volume fraction]32.7 %34.0-46.4FChillicothe VA Medical CenterLaboratory - CoagulationOrdered By: Marlon Leon on 70-07-1653XO Coag (PPP) [Time]11.5 s9.0-12.9[facility] HospitalLaboratory - Hematology and Cell countsOrdered By: Marlon Leon on 95-72-8842Qfudldngy RBC/100 WBC (Bld) [Ratio]0.0 %0-0.5FChillicothe VA Medical CenterLymphocytes Auto (Bld) [#/Vol] Ordered By: Marlon Leon on 02-75-2134Mxttchmwwaw (Bld) [#/Vol]0.4 10*3/uL 1.00-4.8[facility] Warren HospitalLymphocytes/100 WBC Auto (Bld)Ordered By: Marlon Leon on 21-03-5835Whdbinpqakq/100 WBC (Bld)4.3 %[facility] CenterH Auto (RBC) [Entitic mass]Ordered By: Marlon Leon on 06-25-2021 MCH (RBC) [Entitic mass]31.3 pg24.7-34.3FChillicothe VA Medical CenterMCHC Auto (RBC) [Mass/Vol]Ordered By: Marlon Leon on 34-70-9932DCYT (RBC) [Mass/Vol] 34.0 g/dL32.0-35.0[facility] Warren HospitalMCV Auto (RBC) [Entitic vol] Ordered By: Marlon Leon on 49-70-1178YJB (RBC) [Entitic vol]92.1 vL08-[address] [facility] Warren HospitalMonocytes Auto (Bld) [#/Vol]Ordered By: Marlon Leon on 37-42-0806Phttcnsfa (Bld) [#/Vol]0.5 10*3/uL0.0-0.8FirMemorial Health System Selby General HospitalMonocytes/100 WBC Auto (Bld)Ordered By: Marlon Leon on 06-25-2021 Monocytes/100 WBC (Bld)4.5 %[facility] Warren HospitalNeutrophils Auto (Bld) [#/Vol]Ordered By: Marlon Leon on 84-14-2998Tfxqcgiednq (Bld) [#/Vol]9.6 10*3/uL1.8-7.7FChillicothe VA Medical CenterNeutrophils/100 WBC Auto (Bld) Ordered By: Marlon Leon on 86-58-1880Eslkrqjbfgf/100 WBC (Bld)90.9 %[facility] HospitalPartial Thromboplastin Timeon 24-74-4999iVUD Coag (Bld) [Time]24.8 sLow25.1-36.5FChillicothe VA Medical CenterComment on above:Result Comment: PERFORMED BY: [facility] [address] [place] [address] PATHOLOGIST [employer] ASSEMBLER NARGIS CLEMENS M.D.Performed By: #### GLULS #### Point of Care testing ,Platelet mean volume Auto (Bld) [Entitic vol]Ordered By: Marlon Leon on 43-36-3644Bnqqflmm mean volume (Bld) [Entitic vol]9.0 fL6.3-10.7FChillicothe VA Medical CenterPlatelet poor plasma international normalized ratio (INR) by coagulation assay (relatOrdered By: Marlon Leon on 34-63-4422DDE Coag (PPP) [Relative time]1.0 {INR}[facility] Warren HospitalComment on above:INR Therapeutic Range A) Pre- and Peroperative OAT started two weeks before surgery. NOT HIP SURGERY: 1.5 - 2.5 HIP SURGERY: 2 - 3 B) Primary and secondary prevention of venous THROMBOSIS: 2 - 3 C) Active venous thrombosis, pulmonary embolism and prevention of recurrent venous thrombosis: 2 - 3 D) Prevention of arterial thromboembolism including patients with mechanical heart valves: 3 - 4.5Platelets Auto (Bld) [#/Vol]Ordered By: Marlon Leon on 28-84-0256Xclkwimeo (Bld) [#/Vol]205 10*3/uL 150-450[facility] Warren HospitalProgress Noteson 77-82-5114Ctefhxhnqvkvv Authentication Interface Message TextEMERGENCY TRIAGE, TREAT AND TRANSPORT (ET3) DOCUMENTATION OF TELEHEALTH VISIT Date / Time: 06/23/20211929 Name: Rivka Turner : 1945 SSN: (Not on file) EMS Agency: [facility] [x] Verbal consent obtained [] [...] Disposition Reported: Same ET3 Encounter Completed by: Susu DiazL[facility] Prothrombin Time INRon 69-35-6068OQC Coag (PPP) [Relative time]1.0 {INR}Normal [facility] Warren HospitalComment on above:Result Comment: INR Therapeutic Range A) Pre- and [...] patients with mechanical heart valves: 3 - 4.5Performed By: #### GLULS #### Point of Care testing ,PT Coag (PPP) [Time]11.5 sNormal9.0-12.9[facility] Comment on above:Performed By: #### GLULS #### Point of Care testing ,RBC Auto (Bld) [#/Vol]Ordered By: Marlon Leon on 33-88-6917QNT (Bld) [#/Vol] 3.55 10*6/uL3.60-5.00[facility] HospitalTroponin I High Sensitivityon 17-09-7435Eibyynzu I High Jgxvfhcavyl059 pg/mLOff scale high[address] [facility] Joseph Warren HospitalComment on above:Result Comment: Critical value result called at 0638 on 06/25/21 PERFORMED BY: [place] [address] PATHOLOGIST [employer]SEMBLER NARGIS CLEMENS M.D.Performed By: #### PTT #### [place] [address] USATroponin I.cardiac [Mass/volume] in Serum or Plasma by High sensitivity methodOrdered By: Gen Bolivar on 76-25-7923Ymetxqkg I.cardiac High sensitivity method [Mass/Vol]735 pg/mL0-15[facility] Comment on above:Critical value result called at 0638 on 06/25/21A1C with Estimated Average Gluon 32-08-7802Jwqagye [Mass/Vol] 160 mg/dLNormalMercy Health St. Joseph Warren HospitalComment on above:Result Comment: PERFORMED BY: [facility] [place] [address] PATHOLOGIST [employer]ATE ASSEMBLER NARGIS CLEMENS M.D.Performed By: #### GLULS #### Point of Care testing ,HbA1c (Bld) [Mass fraction]7.2 %High4.3-5.6FChillicothe VA Medical Center Comment on above:Result Comment: Increased risk for diabetes: 5.7 - 6.4 diabetes: >6.4 glycemic control for adults with diabetes: <7.0Performed By: #### GLULS #### Point of Care testing ,Albumin [Mass/volume] in Serum or PlasmaOrdered By: Marlon Leon on 06-24-2021 Albumin [Mass/Vol]3.1 g/dL3.2-5.5FChillicothe VA Medical CenterCholesterol [Mass/volume] in Serum or PlasmaOrdered By: Marlon Leon on 31-37-0659Xvifoxbmmur [Mass/Vol]128 mg/tW015-772OomvfjfygMercy Health St. Joseph Warren HospitalComment on above: Chol less than 200 mg/dl low risk Chol 201-239 mg/dl borderline risk Chol 240 mg/dl and greater high riskCholesterol in LDL Calc [Mass/Vol]Ordered By: Marlon Leon on 59-26-1822Lcpquwevlyp in LDL [Mass/Vol]56 mg/dL0-100[facility]. Joseph Warren HospitalComment on above:LDL ATP III CLASSIFICATION LDL less than 100 mg/dL Optimal LDL 100-129 mg/dL Near or above optimal LDL 130-159 mg/dL Borderline high LDL 160-189 mg/dL High LDL greater than 189 mg/dL Very highCholesterol in VLDL Calc [Mass/Vol]Ordered By: Marlon Leon on 21-14-7024Nmyzfvqbqar in VLDL [Mass/Vol]13 mg/dLMercy Health St. Joseph Warren HospitalComplete Blood Count Auto Diffon 93-75-7188Bonnzkqac (Bld) [#/Vol]0.1 10*3/uLNormal0.0-0.2FChillicothe VA Medical CenterComment on above:Result Comment: PERFORMED BY: [place] [address] PATHOLOGIST [employer] ASSEMBLER NARGIS CLEMENS M.D.Performed By: #### PTT #### [place] [address] USABasophils/100 WBC (Bld)0.8 %Normal.[facility] Joseph Warren HospitalComment on above:Performed By: #### PTT #### [place] [address] USAEosinophils (Bld) [#/Vol]0.2 10*3/uLNormal0.0-0.[address] [facility] Warren HospitalComment on above:Performed By: #### PTT #### [place] [address] USAEosinophils/100 WBC (Bld)3.2 %Normal.[facility] Warren HospitalComment on above:Performed By: #### PTT #### [place] [address] USAErythrocyte distribution width (RBC) [Ratio]12.7 %Normal 11.9-15.3FChillicothe VA Medical CenterComment on above:Performed By: #### PTT #### [place] [address] USAHematocrit (Bld) [Volume fraction]30.5 %Low34.0-46.[address] [facility] Warren HospitalComment on above:Performed By: #### PTT #### [place] [address] USAHemoglobin (Bld) [Mass/Vol]10.4 g/dLLow11.8-15.4FChillicothe VA Medical CenterComment on above:Performed By: #### PTT #### [place] [address] USALymphocytes (Bld) [#/Vol]1.8 10*3/uLNormal1.00-4.[address] [facility] Warren HospitalComment on above:Performed By: #### PTT #### [facility] [address] [place] [address] USALymphocytes/100 WBC (Bld)27.4 %Normal.[facility] Warren HospitalComment on above:Performed By: #### PTT #### [facility] [address] (RBC) [Entitic mass]31.3 coZamjwa87.7-34.3FChillicothe VA Medical CenterComment on above:Performed By: #### PTT #### [facility] [address]V (RBC) [Entitic vol]92.0 dBVdhkkr77-926MmennldgxMercy Health St. Joseph Warren HospitalComment on above:Performed By: #### PTT #### [facility] [address] [place] [address] USAMean Corpuscular HGB Conc34.1 g/jUMggjvq49.0-35.0[facility] Warren HospitalComment on above:Performed By: #### PTT #### [facility] [address] [place] [address] USAMonocytes (Bld) [#/Vol]0.6 10*3/uLNormal0.0-0.8[facility] HospitalComment on above:Performed By: #### PTT #### [facility] [address] [place] [address] USAMonocytes/100 WBC (Bld)8.9 %Normal.[facility] Warren HospitalComment on above:Performed By: #### PTT #### [facility] [address] [place] [address] USANeutrophils (Bld) [#/Vol]3.8 10*3/uLNormal1.8-7.7FChillicothe VA Medical CenterComment on above:Performed By: #### PTT #### [facility] [address] [place] [address] USANeutrophils/100 WBC (Bld)59.7 %Normal.[facility] Warren HospitalComment on above:Performed By: #### PTT #### [place] [address] USANucleated RBC/100 WBC (Bld) [Ratio]0.0 %Normal0-0.[address] [facility] Warren HospitalComment on above:Performed By: #### PTT #### [place] [address] USAPlatelet mean volume (Bld) [Entitic vol]8.4 fLNormal 6.3-10.7FChillicothe VA Medical CenterComment on above:Performed By: #### PTT #### [place] [address] USAPlatelets (Bld) [#/Vol]191 10*3/lGWqdzcs604-782IrrkhjyroMercy Health St. Joseph Warren HospitalComment on above:Performed By: #### PTT #### [place] [address] USARBC (Bld) [#/Vol]3.31 10*6/uLLow3.60-5.00Mer[facility] St. Joseph Warren HospitalComment on above:Performed By: #### PTT #### [place] [address] USAWBC (Bld) [#/Vol]6.4 10*3/uLNormal4.5-11.0Mer[facility] Health St. Joseph Warren HospitalComment on above:Performed By: #### PTT #### [place] [address] USAComprehensive Metabolic Panelon 44-87-5810Frgxpib [Mass/Vol]3.1 g/dLLow3.2-5.5FChillicothe VA Medical CenterComment on above: Performed By: #### HS TROP, PT, PTT, CMP, PHOS, MG, LIPID #### [place] [address] USAAlbumin/Globulin [Mass ratio]1.2 {ratio}NormalMercy Health St. Joseph Warren HospitalComment on above:Performed By: #### HS TROP, PT, PTT, CMP, PHOS, MG, LIPID #### [facility] [address] [place] [address] USAALP [Catalytic activity/Vol]57 U/FDhyynf42-83YmrjklwcsMercy Health St. Joseph Warren HospitalComment on above:Performed By: #### HS TROP, PT, PTT, CMP, PHOS, MG, LIPID #### [facility] [address] [place] [address] USAALT [Catalytic activity/Vol]25 U/JOoetmp95-42XcuitueuaMercy Health St. Joseph Warren HospitalComment on above:Performed By: #### HS TROP, PT, PTT, CMP, PHOS, MG, LIPID #### [facility] [address] [place] [address] USAAST [Catalytic activity/Vol]20 U/OPgsedu94-28BauuriibmMercy Health St. Joseph Warren HospitalComment on above:Performed By: #### HS TROP, PT, PTT, CMP, PHOS, MG, LIPID #### [facility] [address] [place] [address] USABilirubin [Mass/Vol]0.5 mg/dLNormal0.3-1.2FChillicothe VA Medical CenterComment on above:Performed By: #### HS TROP, PT, PTT, CMP, PHOS, MG, LIPID #### [facility] [address] [place] [address] USACalcium [Mass/Vol]9.1 mg/dLNormal8.2-10.2FChillicothe VA Medical CenterComment on above:Performed By: #### HS TROP, PT, PTT, CMP, PHOS, MG, LIPID #### [facility] [address] [place] [address] USAChloride [Moles/Vol]108 mmol/XMycmcq52-549GjylgwwfpMercy Health St. Joseph Warren HospitalComment on above:Performed By: #### HS TROP, PT, PTT, CMP, PHOS, MG, LIPID #### [facility] [address] [place] [address] USACO2 [Moles/Vol]25.1 mmol/ESlnlqu06.0-30.0[facility] St. Joseph Warren HospitalComment on above:Performed By: #### HS TROP, PT, PTT, CMP, PHOS, MG, LIPID #### [facility] [address] [place] [address] USACreatinine [Mass/Vol]1.64 mg/dLHigh0.44-1.03[facility] St. Joseph Warren HospitalComment on above:Performed By: #### HS TROP, PT, PTT, CMP, PHOS, MG, LIPID #### [facility] [address] [place] [address] USACreatinine Clr Calc Espeovxu75.62NoSelect Medical Specialty Hospital - Columbus SouthComment on above:Performed By: #### HS TROP, PT, PTT, CMP, PHOS, MG, LIPID #### [facility] [address] [place] [address] USAEstimated GFR ( Zbispma87AfpzpbJfevhvxkbKettering Health Main CampusComment on above:Result Comment: GFR estimated reference range: According to KDOQI guidelines, <60 ml/min/1.73m2 is sufficient to diagnose a patient with chronic kidney disease.Performed By: #### HS TROP, PT, PTT, CMP, PHOS, MG, LIPID #### [facility] [address] [place] [address] USAEstimated GFR (Non- Ri68VutfyvPxywqrhgkKettering Health Main CampusComment on above:Performed By: #### HS TROP, PT, PTT, CMP, PHOS, MG, LIPID #### [facility] [address] [place] [address] USAGlobulin (S) [Mass/Vol]2.6 g/dLNoSelect Medical Specialty Hospital - Columbus SouthComment on above:Performed By: #### HS TROP, PT, PTT, CMP, PHOS, MG, LIPID #### [facility] [address] [place] [address] USAGlucose [Mass/Vol]65 mg/fBQwm09-462CgnxtsdjbMercy Health St. Joseph Warren HospitalComment on above:Result Comment: Random Glucose Reference Range is dependent on time and content of last meal. Glucose of more than 200 mg/dL in a nonstressed, ambulatory subject supports the diagnosis of Diabetes Mellitus. ADA recommended reference rangePerformed By: #### HS TROP, PT, PTT, CMP, PHOS, MG, LIPID #### [facility] [address] [place] [address] USAPotassium [Moles/Vol]4.1 mmol/LNormal3.5-5.1FChillicothe VA Medical CenterComment on above:Performed By: #### HS TROP, PT, PTT, CMP, PHOS, MG, LIPID #### [facility] [address] [place] [address] USAProtein [Mass/Vol]5.7 g/dLLow6.1-7.9[facility] Joseph Warren HospitalComment on above:Performed By: #### HS TROP, PT, PTT, CMP, PHOS, MG, LIPID #### [facility] [address] [place] [address] USASodium [Moles/Vol]140 mmol/GQlozlt828-936RxmmxxxmvMercy Health St. Joseph Warren HospitalComment on above:Performed By: #### HS TROP, PT, PTT, CMP, PHOS, MG, LIPID #### [facility] [address] [place] [address] USAUrea nitrogen [Mass/Vol]27 mg/dLHigh9-23Mer[facility] Health St. Joseph Warren HospitalComment on above:Performed By: #### HS TROP, PT, PTT, CMP, PHOS, MG, LIPID #### [facility] [address] [place] [address] USACreatinine and Glomerular filtration rate.predicted panel (S/P/Bld)Ordered By: Marlon Leon on 77-38-0199Xugdlprvmu [Mass/Vol]1.64 mg/dL 0.44-1.03Mer[facility] Health St. Joseph Warren HospitalECG 12 lead ECGon 22-32-0455IPO 12 lead ECGGLENBEIGH [facility] Main [place] [address] [place] [address] Electrocardiograph Report Signed Patient: Rivka Turner MR#: [id number] : 1945 Acct:[id number] Age/Sex: 75 / F ADM Date: 06/24/21 Loc: Room: [address] [place] [address] Type: DIS IN Attending Dr: Rusty Amor [...] Referred By: Electronically Signed By:WIL DOMÍNGUEZ MD [facility] Transcribed By: MUS Signed By Wil Domínguez MD, FACC 06/25/21 1101K[facility]tering Health Main CampusEC 12 lead [facility] [place] [address] Electrocardiograph Report Signed Patient: Rivka Turner MR#: [id number] : 1945 Acct:[id number] Age/Sex: 75 / F ADM Date: 06/24/21 Loc: Room: [address] [place] [address] Type: DIS IN Attending Dr: Rusty Amor [...] By: MUS Signed By Wil Domínguez MD, [facility] 06/24/21 1001NoSelect Medical Specialty Hospital - Columbus SouthECH echo transthoracicon 47-85-5984DIW echo transthoracicGLENBEIGH [place] [address] Echocardiogram Signed Patient: Rivka Turner MR#: [id number] : 1945 Acct:[id number] Age/Sex: 75 / F ADM Date: 06/24/21 Loc: Room: [address] [place] [address] Type: DIS IN Attending Dr: Rusty Amor MD Ordering Provider: Marlon Leon DO, RES Date of Service: 06/24/2108/10/602 ECH/ECH echo transthoracic: NSTEMI Copies to: Marlon Leon DO, JOSE DE JESUS Domínguez MD, [facility] A : 1945 Gender: Female (MM/DD/YYYY) [...] Frazier. : : MD SANG, : : [facility] : : : : on: 06/24/2021, 11:11 : : AM : : : Transcribed By: SCAnita Performed At: 06/24/21 0944 Signed By: Wil Domínguez MD, [facility] 06/24/21 1111K[facility]tering Health Main CampusEstimated glomerular filtration rate (GFR) non- Ordered By: Marlon Leon on 48-07-2072MFN/1.73 sq M.predicted among non-blacks MDRD (S/P/Bld) [Vol rate/Area]31 mL/MinMercy Health St. Joseph Warren HospitalGlobulin Calc (S) [Mass/Vol]Ordered By: Marlon Leon on 87-25-9873Dmchboxi (S) [Mass/Vol] 2.6 g/dLMercy Health St. Joseph Warren HospitalGlucose Poct Glucometerson 06-24-2021 Glucose [Mass/Vol]322 mg/dLKettering Health Main CampusComment on above:Result Comment: Random Glucose Reference Range is dependent on time and content of last meal. Glucose of more than 200 mg/dL in a nonstressed, ambulatory subject supports the diagnosis of Diabetes Mellitus. PERFORMED BY: [place] [address] PATHOLOGIST BATTERY PLATE ASSEMBLER NARGIS CLEMENS M.D.Performed By: #### GLULS #### Point of Care testing ,Lhttdwc7Oig7: Cleaned MeterKettering Health Main CampusComment on above:Result Comment: PERFORMED BY: [address] [place] [id number] PATHOLOGIST BATTERY PLATE ASSEMBLER NARGIS CLEMENS M.D.Performed By: #### GLULS #### Point of Care testing ,Glucose [Mass/Vol]87 mg/dLNoSelect Medical Specialty Hospital - Columbus SouthComment on above:Result Comment: Random Glucose Reference Range is dependent on time and content of last meal. Glucose of more than 200 mg/dL in a nonstressed, ambulatory subject supports the diagnosis of Diabetes Mellitus.Performed By: #### GLULS #### Point of Care testing ,Glucose [Mass/Vol]139 mg/dLNoSelect Medical Specialty Hospital - Columbus SouthComment on above:Result Comment: Random Glucose Reference Range is dependent on time and content of last meal. Glucose of more than 200 mg/dL in a nonstressed, ambulatory subject supports the diagnosis of Diabetes Mellitus. PERFORMED BY: [place] [address] PATHOLOGIST BATTER[employer] PLATE ASSEMBLER NARGIS CLEMENS M.D.Performed By: #### PTT #### [address] [address] USAGlucose mean value [Mass/volume] in Blood Estimated from glycated hemoglobinOrdered By: Marlon Leon on 74-28-6208Necoxca glucose Estimated from glycated hemoglobin (Bld) [Mass/Vol]160 mg/dLMercy Health St. Joseph Warren HospitalHemoglobin A1c percentageOrdered By: Marlon Leon on 06-24-2021 HbA1c (Bld) [Mass fraction]7.2 %4.3-5.6FChillicothe VA Medical CenterComment on above:Increased risk for diabetes: 5.7 - 6.4 diabetes: >6.4 glycemic control for adults with diabetes: <7.0Laboratory - Chemistry and Chemistry - challengeOrdered By: Marlon Leon on 81-55-4530Jwzuajawj [Mass/Vol] 2.4 mg/dL1.6-2.6FChillicothe VA Medical CenterLipid Panelon 06-24-2021 Cholesterol [Mass/Vol]128 mg/hPUnf056-155OxamylsciMercy Health St. Joseph Warren Hospital Comment on above:Result Comment: Chol less than 200 mg/dl low risk Chol 201-239 mg/dl borderline risk Chol 240 mg/dl and greater high riskPerformed By: #### HS TROP, PT, PTT, CMP, PHOS, MG, LIPID #### [facility] [address] [place] [address] USACholesterol in HDL [Mass/Vol]58 mg/qMCrwvwt80-30VwneasduaMercy Health St. Joseph Warren HospitalComment on above:Result Comment: HDL CHOL ATP-III CLASSIFICATION Cardiovascular Risk HDL > or equal to 60 mg/dL LOW HDL < 40 mg/dL HIGHPerformed By: #### HS TROP, PT, PTT, CMP, PHOS, MG, LIPID #### [facility] [address] [place] [address] USACholesterol.total/Cholesterol in HDL [Mass ratio]2.2 {ratio}Normal<5.0Mer[facility] Health St. Joseph Warren HospitalComment on above:Result Comment: PERFORMED BY: [facility] [address] [place] [address] PATHOLOGIST [employer]ATE ASSEMBLER NARGIS CLEMENS M.D.Performed By: #### HS TROP, PT, PTT, CMP, PHOS, MG, LIPID #### [facility] [address] [place] [address] USALDL Cholesterol,Dbmrhvkpwv50 mg/dLNormal0-100Mer[facility] St. Joseph Warren HospitalComment on above:Result Comment: LDL ATP III CLASSIFICATION LDL less than 100 mg/dL Optimal LDL 100-129 mg/dL Near or above optimal LDL 130-159 mg/dL Borderline high LDL 160-189 mg/dL High LDL greater than 189 mg/dL Very highPerformed By: #### HS TROP, PT, PTT, CMP, PHOS, MG, LIPID #### [facility] [address] [place] [address] USATriglyceride w/Ixrbkl69 mg/mWLkpmas38-275GgrndjxrnMercy Health St. Joseph Warren HospitalComment on above:Result Comment: TRIG ATP III CLASSIFICATION TRIG less than 150 mg/dL Normal TRIG 150-199 mg/dL Borderline high TRIG 200-500 mg/dL High TRIG greater than 500 mg/dL Very high Standard traceable to the Center for Disease Conrtrol and Prevention (CDC) test method.Performed By: #### HS TROP, PT, PTT, CMP, PHOS, MG, LIPID #### [facility] [address] [place] [address] USAVLDL RBDKAIOVAYW18 mg/dLNormClinton Memorial HospitalComment on above:Performed By: #### HS TROP, PT, PTT, CMP, PHOS, MG, LIPID #### [place] [address] USAMagnesiumon 73-75-6403Iyjwwwczz [Mass/Vol]2.4 mg/dLNormal 1.6-2.6FChillicothe VA Medical CenterComment on above:Performed By: #### HS TROP, PT, PTT, CMP, PHOS, MG, LIPID #### [place] [address] USANo Panel InformationOrdered By: Rusty Amor on 42-13-2171Hoxodxo Glucose CommentGlu2: cleaned meterMercy Health St. Joseph Warren HospitalNo Panel InformationOrdered By: Marlon Leon on 45-20-2935Skrbvlraw GFR ()37 mL/MinMercy Health St. Joseph Warren HospitalComment on above:GFR estimated reference range: According to KDOQI guidelines, <60 ml/min/1.73m2 is sufficient todiagnose a patient with chronic kidney disease.Pharmacy Creatinine Clearance (Chem33.62Mer[facility] Health St. Joseph Warren HospitalPartial Thromboplastin Time on 11-95-4972gISV Coag (Bld) [Time]43.4 sHigh25.1-36.5FChillicothe VA Medical CenterComment on above:Order Comment: draw both at 11:35 with per Shahnaz martin Result Comment: PERFORMED BY: [place] [address] PATHOLOGIST [employer] ASSEMBLER NARGIS CLEMENS M.D.Performed By: #### PTT #### [place] [address] USAaPTT Coag (Bld) [Time]35.4 bQysmkp29.1-36.5FChillicothe VA Medical CenterComment on above:Result Comment: PERFORMED BY: [place] [address] PATHOLOGIST BATTER[employer] PLATE ASSEMBLER NARGIS CLEMENS M.D.Performed By: #### HS TROP, PT, PTT, CMP, PHOS, MG, LIPID #### [place] [address] USAPhosphate [Mass/volume] in Serum or PlasmaOrdered By: Marlon Leon on 78-85-7216Dpbafcjmg [Mass/Vol]3.5 mg/dL2.5-4.6FChillicothe VA Medical CenterPhosphoruson 69-88-7208Gwgyfoztc [Mass/Vol]3.5 mg/dLNormal2.5-4.[address] [facility] Warren HospitalComment on above:Performed By: #### HS TROP, PT, PTT, CMP, PHOS, MG, LIPID #### [facility] [address] [place] [id number] USAProtein [Mass/volume] in Serum or PlasmaOrdered By: Marlon Leon on 48-55-7185Oswwhux [Mass/Vol]5.7 g/dL6.1-7.9[facility] Warren HospitalProthrombin Time INRon 25-04-9318JUR Coag (PPP) [Relative time]1.0 {INR} NormalMercy Health St. Joseph Warren HospitalComment on above:Result Comment: INR Therapeutic Range A) Pre- and [...] patients with mechanical heart valves: 3 - 4.5Performed By: #### HS TROP, PT, PTT, CMP, PHOS, MG, LIPID #### [facility] [address] [place] [address] USAPT Coag (PPP) [Time]11.7 sNormal9.0-12.9[facility] Joseph Warren HospitalComment on above:Performed By: #### HS TROP, PT, PTT, CMP, PHOS, MG, LIPID #### [facility] [address] [place] [address] USASerum or plasma alanine aminotransferase measurement without P-5'-P (enzymatic activiOrdered By: Marlon Leon on 46-98-5257DVH No additional P-5'-P [Catalytic activity/Vol]25 U/D17-06NntmatkafKindred Hospital Limaerum or plasma albumin/globulin mass ratioOrdered By: Marlon Leon on 05-98-8847Qqdyryt/Globulin [Mass ratio]1.2 {ratio}Kindred Hospital Limaerum or plasma alkaline phosphatase measurement (enzymatic activity/volume)Ordered By: Marlon Leon on 84-73-9784CRZ [Catalytic activity/Vol]57 U/X52-44VoqipmcjaKindred Hospital Limaerum or plasma aspartate aminotransferase measurement (enzymatic activity/volume)Ordered By: Marlon Leon on 10-89-5007JAC [Catalytic activity/Vol]20 U/P55-46KceawjtdtKindred Hospital Limaerum or plasma calcium measurement (mass/volume)Ordered By: Marlon Leon on 11-57-9318Vyyozbm [Mass/Vol]9.1 mg/dL8.2-10.2FOhioHealth Nelsonville Health Centererum or plasma chloride measurement (moles/volume) Ordered By: Marlon Leon on 42-47-8989Doazuezr [Moles/Vol]108 mmol/L95-114 Kindred Hospital Limaerum or plasma glucose measurement (mass/volume)Ordered By: Marlon Leon on 21-16-6270Ejkalxw [Mass/Vol]65 mg/dL 70-100[facility] St[facility] Warren HospitalComment on above:ADA recommended reference range Random Glucose Reference Range is dependent on time and content of last meal. Glucose of more than 200 mg/dL in a nonstressed, ambulatory subject supports the diagnosis of Diabetes Mellitus.Serum or plasma high density lipoprotein (HDL) cholesterol measurementOrdered By: Marlon Leon on 05-89-7037Enywrdsxsti in HDL [Mass/Vol]58 mg/hW17-97QgqymyzrxMercy Health St. Joseph Warren HospitalComment on above:HDL CHOL ATP-III CLASSIFICATION Cardiovascular Risk HDL > or equal to 60 mg/dL LOW HDL < 40 mg/dL HIGHSerum or plasma potassium measurement (moles/volume)Ordered By: Marlon Leon on 23-52-1480Ybgegezfx [Moles/Vol]4.1 mmol/L3.5-5.1FOhioHealth Nelsonville Health Centererum or plasma sodium measurement (moles/volume)Ordered By: Marlon Leon on 62-03-6349Kklhwp [Moles/Vol]140 mmol/D790-857ZodwsxrzoKindred Hospital Limaerum or plasma total bilirubin measurement (mass/volume) Ordered By: Marlon Leon on 68-00-9908Pkumappfz [Mass/Vol]0.5 mg/dL0.3-1.2 Kindred Hospital Limaerum or plasma total carbon dioxide measurement (moles/volume)Ordered By: Marlon Leon on 63-36-0001DN2 [Moles/Vol] 25.1 mmol/L22.0-30.0Kindred Hospital Limaerum or plasma total cholesterol/high density lipoprotein (HDL) cholesterol mass ratOrdered By: Marlon Leon on 49-28-6844Ilrzigzzjwf.total/Cholesterol in HDL [Mass ratio]2.2 {ratio} Kindred Hospital Limaerum or plasma urea nitrogen measurement (mass/volume)Ordered By: Marlon Leon on 03-36-5456Mdyh nitrogen [Mass/Vol]27 mg/dL9-23[facility] St[facility] Warren HospitalTriglyceride [Mass/volume] in Serum or PlasmaOrdered By: Marlon Leon on 77-89-1137Uvdnxtfmhjhx [Mass/Vol]69 mg/dL 35-149Mer[facility] Health St. Joseph Warren HospitalComment on above:TRIG ATP III CLASSIFICATION TRIG less than 150 mg/dL Normal TRIG 150-199 mg/dL Borderline high TRIG 200-500 mg/dL High TRIG greater than 500 mg/dL Very high Standard traceable to the Center for Disease Conrtrol and Prevention (CDC) test method.Troponin I High Sensitivityon 86-82-3380Uacbnmnc I High Wztuvugzmlf643 pg/mLOff scale [address]Comment on above:Order Comment: draw both at 11:35 with per Shahnaz Kumari Comment: Critical value result called at 1246 on 06/24/21 PERFORMED BY: [facility] [address] PATHOLOGIST BAT[employer] PLATE ASSEMBLER NARGIS CLEMENS M.D.Performed By: #### GLULS #### Point of Care testing ,Troponin I High Ebtgrnzokhy8335 pg/mLOff scale [address]Comment on above:Result Comment: Results called at 0635 on 06/24/21 PERFORMED BY: [facility] [address] [place] [address] PATHOLOGIST BATTER[employer] PLATE ASSEMBLER NARGIS CLEMENS M.D.Performed By: #### HS TROP, PT, PTT, CMP, PHOS, MG, LIPID #### [facility] [address] [place] [id number] [facility] COL[facility] MEDICAL CENTERCNOV 88-23-2846CTNZEnlpgu Visit (VASSFT) --------RIVKA TURNER ([id number]) 1945 FDa Time Provider Department09/19/17 11:30 AM ROSIE MELLO During your visit today, we recorded the following information about you: Pulse Respiration Blood pressure Weight 52/minute 16/minute 115/46 93.4 kg Height 1.626 Margarita Mello MD 09/19/2017 11:59 AM [facility] InstituteRobal[facility] and [facility] Department of Cardiovascular MedicineOUTPATIENT VISIT DATE September 19, 2017OUTPATIENT VISIT TYPENEWPRIMARY CARE PHYSICIAN:Amador Abdalla MD ([facility])[address] [place], [place] [address]Rmklf: [phone]: [phone] PAYAM Wilkins MD[address] [place] [address]IMZDU COMPLAINT:No chief complaint on file.HISTORY OF PRESENT ILLNESS:Rivka Turner was referred for consultation by Dr. [...] s/p PCI. On ASA, statin.HUMBERTO/PVR performed at [facility], right 0.94, left 1.14.PAST MEDICAL HISTORYDiagnosis Date- DM (diabetes mellitus) (HCC)- Fibromyalgia- HTN (hypertension)- Intermittent claudication (HCC)- OsteoarthritisPAST SURGICAL HISTORYProcedure Laterality Date- ASPIRATION BREAST CYST- CHOLECYSTECTOMY- PAST SURGICAL HISTORY OF Cardiac Stents- PAST SURGICAL HISTORY OF Removal of ovary tumorSOCIAL HISTORYSocial HistorySubstance Use Topics- Smoking status: Never Smoker- Smokeless tobacco: Never Used- Alcohol use NoNo family history on file.ALLERGIES:ALLERGIESAllergen Reactions- Clindamycin Hcl Anaphylaxis- Cyclobenzaprine Hcl Rash- Exenatide Rash- Iodine And Iodide C* Rash- Penicillins Rash- Prochlorperazine UnknownMEDICATIONS:medical supply, m iscellaneous (COMMODE PAIL [facility]) USE DIRECTEDVENTOLIN HFA 90 mcg/actuation inhaleramLODIPine (NORVASC) 10 mg tablet Take 1 tablet by mouth once daily.atorvastatin (LIPITOR) 40 mg tablet Take 1 tablet by mouth daily at bedtime.TeleusUCH ULTRA BLUE TEST STRIP test strip twice daily. TEST TWICE DAILY TeleusUCH ULTRA2 monitoring kit twice daily. TEST TWICE [...] [facility] hospitalc twice daily. TEST TWICE DAILYlosartan-hydrochlorothiazide (HYZAAR) 100-25 mg pertablet Take 1 tablet bymouth once daily.metFORMIN ER (GLUCOPHAGE XR) 500 mg 24 hr tablet Take 1 tabl et by mouth twicedaily.metoprolol tartrate, short acting, (LOPRESSOR) [...] and peripheral neuropathy.Encouraged to develop regular walking regimen,at least 3 times per week for 30minutes durations, rest when calf discomfort prevents her from walking furtherand then restart. I suspect her osteoarthritis will be her limiting factor andthus recommend initial evaluation with orthopedics.Continue optimal medical control of comorbidities, in particu lar control ofhyperglycemia.Continue follow up with Dr Wilkins of podiatry.Beverley Wild Provider: TURNER WILKINS [[id number]]Allergies As of Date: 09/19/2017 Noted Allergy ReactionCLINDAMYCIN HCL 05/26/2016 10 - AnaphylaxisCYCLOBENZAPRINE HCL 12/11/2012 2 - RashEXENATIDE 12/27/2012 2 - R ashIODINE AND IODIDE CONTAINING PROD*12/11/2012 2 - RashPENICILLINS 12/11/2012 2 - RashPROCHLORPERAZINE 12/11/2012 16 - UnknownDate Reviewed: 09/19/2017Reviewed by: Rosie Mello - Fully AssessedPrimary Visit Diagnosis:Primary osteoarthritis involving multiple joints [M15.0] Other Visit Diagnoses:Diabetic peripheral neuropathy associated with type 2 diabetes mellitus (HCC) [E11.42] PAD (peripheral artery disease) ([facility]) [I73.9]Prescriptions as of 09/19/2017 Sig: COMMODE PAIL MISC USE DIRECTED VENTOLIN HFA 90 MCG/ACTUATION* AMLODIPINE 10 MG TABLET Take 1 tablet by mouth once d* ATORVASTATIN 40 MG TABLET Take 1 tablet by mouth daily * ONETOUCH ULTRA BLUE TEST STRIP twice daily. TEST TWICEDAILY ONETOUCH ULTRA2 KIT twice daily. TEST TWICE DAILY STOOL SOFTENER 100 MG CAPSULE Take 100 mg by mouth once silvano* FLUTICASONE 50 MCG/ACTUATION * FUROSEMIDE 40 MG TABLET Take 1 tablet by mouth onced* GLIPIZIDE 10 MG TABLET Take 2 tablets by mouth once * HYDRALAZINE 50 MG TABLET Take 1 tablet by mouth twice * ONETOUCH DELICA LANCETS 30 GA* twice daily. TEST TWICE DAILY LOSARTAN 100 MG-HYDROCHLOR OTH* Take 1 tablet by mouth once d* METFORMIN ER 500 MG TABLET,EX* Take 1 tablet by mouth twice * METOPROLOL TARTRATE 50 MG TAB* Take 1 tablet by mouth once d* SUCRALFATE 1 GRAM TABLET Take 1 tablet by mouth four t* PAROXETINE 40 MG TABLET Take 1 tablet by mouth once d* TEMAZEPAM 15 MG CAPSULE Take1 capsule by mouth daily* PIOGLITAZONE 30 MG TABLET Take 30 mg by mouth once lynn*Problem List As Of Date: 09/19/2017(None)Medications Discontinued During This Encounter pantoprazole DR (PROTONIX) 40mg tab* 09/10/2017 09/19/2017 Class: Historical Med Route: ORAL Sig: Take 1 tablet by mouth twice daily. Disc: Erroneous entryDisposition: Return if symptoms worsen or fail to improve.Follow-up and Disposition History RecordedEncounter Number: [id number] Status:Closed by ROSIE MELLO MD on09/19/17NoWooster Community [facility] 08-85-6587Utxpeyr mass concHNO ID: [id number]: Rosie MelloSer: (none)Author Type: PhysicianType: Progress NotesFiled: 09/19/2017 11:59 AMNote Text:[facility] and V[facility] InstituteMayflower and Alexia Vargasunc [facility] Department of Cardiovascular MedicineOUTPATIENT VISIT DATE September 19, 2017OUTPATIENT VISIT TYPENEWPRIMARY CARE PHYSICIAN:Amador Abdalla MD ([facility])[address] [place], [place] [address]Yersg: [phone]: [phone] PHYSICIANChrisyi Wilkins MD[address] [place] [address]IYNER COMPLAINT:No chief complaint on file.HISTORY OF PRESENT ILLNESS:Rivka Turner was referred for consultation by Dr.Chris Wilkins.Opinions and recommendations in this consultation will be transmitted backto the referring physician by Epic notes or via mail.Ms. [...] s/p PCI. On ASA, statin.HUMBERTO/PVR performed at [facility], right 0.94, left 1.14.PAST MEDICAL HISTORYDiagnosis Date- DM (diabetes mellitus) (HCC)- Fib romyalgia- HTN (hypertension)- Intermittent claudication (HCC)- OsteoarthritisPAST SURGICAL HISTORYProcedure Laterality Date- ASPIRATION BREAST CYST- CHOLECYSTECTOMY- PAST SURGICAL HISTORY OF CardiacStents- PAST SURGICAL HISTORY OF Removal of ovary tumorSOCIAL HISTORYSocial HistorySubstance Use Top ics- Smoking status: Never Smoker- Smokeless tobacco: Never Used- Alcohol use NoNo family history on file.ALLERGIES:ALLERGIESAllergen Reactions- Clindamycin Hcl Anaphylaxis- Cyclobenzaprine Hcl Rash-Exenatide Rash- Iodine And Iodide C* Rash- Penicillins Rash- Prochlorperazine UnknownMEDICATIONS:medical supply, miscellaneous (COMMODE PAIMUSCOGEE) USE DIRECTEDVENTOLIN HFA 90 mcg/actuation inhaleramLODIPine (NORVASC) [...] 30 gauge misc twice daily. TEST TWICE DAILYlosartan-hydrochlorothiazide (HYZAAR) 100-25 mg per tablet Take 1 [...] no acute distressAll other ROS: negativeI personally interviewed,confirmed and edited the above information asobtained by others.PHYSICAL EXAMINATION:BP (!) 115/46 (BP Site: Right Arm, BP Position: Sitting, BP Cuff Size:Large Adult) Pulse (!) 52 Resp 16 Ht 162.6 cm (5' 4 ) Wt 93.4kg (206 lb) SpO2 95% BMI 35.36 kg/m?General appearance: well nourished,alert and cooperative individual, inno acute distress.Neck: no bruitsPulmonary: Lungs clear to auscultation bilaterally.Coronary: regular rate and regular rhythmLower Extremities: Feet and toes warmToes pink < 2 sec cap refillPalp DP pulses bilaterallyNo wounds, ulcersMotor and sensory grossly in tact in bilateral feet and toesCARDIOVASCULAR MEDICINE TESTING:I have personally reviewed the HUMBERTO/PVR.IMPRESSION/PLAN:Ms. Turner is a 72 year old female presenting with lower extremitycomplaints.These are primarily due to osteoarthritis and peripheral neuropathy.Encouraged to develop regular walking regimen, at least 3 times per weekfor 30 minutes durations, rest when calf discomfort prevents herfromwalking further and then restart. I suspect her osteoarthritis will be herlimiting factor and thus recommend initial evaluation with orthopedics.Continue optimal medical control of comorbidities,in particular controlof hyperglycemia.Continue follow up with Dr Wilkins of podiatry.Rosie Mello MDNormalCBethesda North Hospital Vital Signs Date TimeVital SignValuePerforming HkkxrmjibDkyuydkk51-50-5273 14:26-0400Body rozakr181.6 Cisco Cueva MD Work Phone: [facility] [employer] Xuhjth02-14-7441 14:26-0400Body mass index (BMI) [Ratio]30.55 kg/o3XqceycKirby Cueva MD Work Phone: [facility]10-22-2025 14:26-0400Body lxfzfgsvklu30.69 [degF]Kirby Cueva MD Work Phone: [phone] [place], [place] 1650410-22-2025 14:26-0400Body .74 kgKirby Cueva MD Work Phone: [phone] [place] [address] [employer] Yaznlo21-00-2063 12:25-0400Body ctovsdfcpvu94.4 [degF]Yasmin Goodrich MD Work Phone: [phone])574-[address] [place] [address] [employer] Ywmqrv67-19-1289 12:25-0400Diastolic blood ilmwkuwa37 mm[Hg]Yasmin Goodrich MD Work Phone: [phone])[facility] [place], [place] 0287810-13-2025 12:25-0400Heart rate 62 /Mich Goodrich MD Work Phone: [phone] [place] [address] [employer] Ngkoim74-48-8645 12:25-0400 Respiratory rate16 /Mich Goodrich MD Work Phone: [phone] [place] [address] [employer] Taixpb84-04-5810 12:25-7852MxV3% (BldA) [Mass fraction]98 %Yasmin Goodrich MD Work Phone: [phone])[facility] [place], [place] [address]287810-13-2025 12:25-0400Systolic blood mm[Hg]Yasmin Goodrich MD Work Phone: [phone] [address] StreetN[facility] Hurrvi56-46-9222 05:18-0400Body mass index (BMI) [Ratio]30.69 kg/f9TffrxYasmin Goodrich MD Work Phone: [phone] [place] [address] [employer] Zcgref31-20-0515 05:18-0400Body oyxyad20.1 kgYasmin Goodrich MD Work Phone: [facility]10-09-2025 10:11-0400Body ypiqxu308.6 Lashon Goodrich MD Work Phone: [facility]07-17-2025 16:38-0400Body mkekiu493.5 cmTurner Wilkins DPM Work Phone: [facility] HospitalHtecfxujfv38-63-2006 16:38-0400Body mass index (BMI) [Ratio]30.18 kg/z6NptgnjybTurner Wilkins DPM Work Phone: [facility] HospitalKgbiscolpm18-11-7887 16:38-0400Body rutqid53.84 kgTurner Wilkins DPM Work Phone: [facility] HospitalVsubrmqzpt14-86-4952 16:38-0400Respiratory rate18 /minTurner Wilkins DPM Work Phone: [facility] HospitalOwlmkrwaae72-70-0103 13:45-0400Body inxuzh847.5 cmAmador Abdalla MD Work Phone: [facility] HospitalFoypikgbjr88-98-2150 13:45-0400Body mass index (BMI) [Ratio]30.18 kg/m2Amador Abdalla MD Work Phone: [facility] HospitalOrjltowpxp42-90-9736 13:45-0400Body temperature 97.5 [degF]Amador Abdalla MD Work Phone: [facility] HospitalWfshdlyvwq58-12-4120 13:45-0400Body cnaqbu98.84 kgAmador Abdalla MD Work Phone: [facility] HospitalRsgxodzxnt20-82-7901 13:45-0400Diastolic blood utdqvbjx17 mm[Hg]Amador Abdalla MD Work Phone: [facility] HospitalDstwjudkpi64-99-0389 13:45-0400Heart rate67 /min Amador Abdalla MD Work Phone: [facility] HospitalOspdfqllza52-19-6023 13:45-0400Respiratory rate20 /minAmador Abdalla MD Work Phone: [facility] HospitalBvcimwzvwo09-29-7473 13:45-2317KnR9% (BldA) [Mass fraction]97 %Amador Abdalla MD Work Phone: [facility] HospitalFaqsfjmqwd06-53-4684 13:45-0400Systolic blood mm[Hg]Amador Abdalla MD Work Phone: [facility] HospitalXfwlajfvwm63-24-8315 16:44-0400Body upujmt875.5 cmStanleyjayna Wilkins DPM Work Phone: [facility] HospitalHolmkzrfho90-24-2693 16:44-0400Body mass index (BMI) [Ratio]31.83 kg/y0Ifyabdexjayna Wilkins DPM Work Phone: [facility] HospitalIwbmrtxvtn11-10-2969 16:44-0400Body huojtj14.93 kgStanleyjayna Wilkins DPM Work Phone: [facility] HospitalVddqycbkuj79-02-5511 16:44-0400Respiratory rate16 /minStanleyjayna Wilkins DPM Work Phone: [facility] HospitalEqskxeibqi34-00-7292 11:13-0400Body ghiehf457.5 cmAmador Abdalla MD Work Phone: [facility] HospitalJbxaursaly47-88-6918 11:13-0400Body mass index (BMI) [Ratio]31.83 kg/m2Amador Abdalla MD Work Phone: [facility] HospitalTcvtnanpgi47-77-3770 11:13-0400Body temperature 96.4 [degF]Amador Abdalla MD Work Phone: [facility] HospitalCjevxpchss52-70-4907 11:13-0400Body jejejt26.93 kgAmador Abdalla MD Work Phone: [facility] HospitalWvfegiiicj31-31-0814 11:13-0400Diastolic blood duzhakmi30 mm[Hg]Amador Abdalla MD Work Phone: [facility] HospitalZdyokmapfb25-39-8176 11:13-0400Heart rate79 /min Amador Abdalla MD Work Phone: [facility] HospitalYnapxlpwkr81-71-7823 11:13-0400Respiratory rate22 /minDaisyc John BARRIOS Work Phone: [facility] HospitalFphqmaesxo57-28-3824 11:13-0393LqD6% (BldA) [Mass fraction]94 %Amador Abdalla MD Work Phone: [facility] HospitalPotrlnpehy68-51-6997 11:13-0400Systolic blood yqnzfwez906 mm[Hg]Amador Abdalla MD Work Phone: [facility] HospitalSoheezjzlv78-44-9592 08:18-0400Body mass index (BMI) [Ratio]30.93 kg/a1Xruefh Furlong DO Work Phone: [facility] [employer] Pqryfc82-26-4641 08:18-0400Body coiznhshnie34.5 [degF]Boby Varnerng DO Work Phone: [facility]03-25-2025 08:18-0400Body .74 kgDenbianka Varnerng DO Work Phone: [facility] [employer] Ruxlnf64-33-4618 08:18-0400Diastolic blood qgdpllku26 mm[Hg]Boby Varnerng DO Work Phone: [facility]03-25-2025 08:18-0400Heart rate 67 /Bam Joneslong DO Work Phone: [facility]03-25-2025 08:18-0400 Respiratory rate16 /minDennis Karenlong DO Work Phone: [facility]03-25-2025 08:18-6676KrH0% (BldA) [Mass fraction]93 %Boby Joneslong DO Work Phone: [facility]03-25-2025 08:18-0400Systolic blood giofgmtb153 mm[Hg]Boby Joneslong DO Work Phone: [facility] [employer] Bbyylk75-82-3807 14:42-0400Body nvkywu587.6 cmDenbianka Joneslong DO Work Phone: [facility] Isrvsz84-72-4594 14:42-0400Body mass index (BMI) [Ratio]32.03 kg/a4Sfmade Furlong DO Work Phone: [facility] Njwnud29-68-3263 14:42-0400Body comshkqyrdy86.39 [degF]Boby Karenlong DO Work Phone: [facility] HospitalAppTweak.com03-18-2025 14:42-0400Body .64 kgDennis Karenlong DO Work Phone: [facility] HospitalAppTweak.com03-18-2025 14:42-0400Diastolic blood yaqtymxl05 mm[Hg]Boby Joneslong DO Work Phone: [facility] Welqav99-78-6502 14:42-0400Heart rate 79 /Bam Joneslong DO Work Phone: [facility] HospitalAppTweak.com03-18-2025 14:42-0400 Respiratory rate16 /Anneis Karenlong DO Work Phone: [facility] HospitalAppTweak.com03-18-2025 14:42-2149FbA8% (BldA) [Mass fraction]92 %Boby Joneslong DO Work Phone: [facility] HospitalN[facility] Omcnwd85-24-9821 14:42-0400Systolic blood dqcclowa475 mm[Hg]Boby Joneslong DO Work Phone: [facility] Zjlrnu53-86-6100 10:49-0400Body htjtcllqmra89.81 [degF]Boby Joneslong DO Work Phone: [facility] Jfsdov45-47-1801 10:49-0400Body cepsww38.64 kgDenbianka Joneslong DO Work Phone: [facility] Xsjlxh51-11-7894 10:49-0400Diastolic blood luthxjwr45 mm[Hg]Boby Joneslong DO Work Phone: [facility] Gfuunv58-94-0565 10:49-0400Heart rate 88 /minDramyais Furlong DO Work Phone: [facility] Wgvipl23-07-8695 10:49-0400 Respiratory rate16 /minDennis Furlong DO Work Phone: [facility] [employer] Vwewra85-12-9302 10:49-0913TsA3% (BldA) [Mass fraction]98 %Boby Furlong DO Work Phone: [facility] [employer] Gzgcnb27-50-9201 10:49-0400Systolic blood knedtjup445 mm[Hg]Boby Furlong DO Work Phone: [facility] [employer] Fmjgdw07-45-1782 13:26-0500Body qitdfs869.6 cmSlicknis Karenlong DO Work Phone: [facility] [employer] Ucablh50-40-2576 13:26-0500Body mass index (BMI) [Ratio]32.79 kg/i4Mlyixn Furlong DO Work Phone: [facility] [employer] Kqjdjy79-23-6829 13:26-0500Body ehlrqsqiotp21.7 [degF]Boby Joneslong DO Work Phone: [facility] [employer] Qqqtuc17-58-2048 13:26-0500Body hnjjej53.64 kgDenbianka Joneslong DO Work Phone: [facility] [employer] Bexptm65-37-9498 13:26-0500Diastolic blood nxoyiygm36 mm[Hg]Bobybianka Joneslong DO Work Phone: [facility] [employer] Bkrkcw17-52-6986 13:26-0500Heart rate 72 /Anneis Furlong DO Work Phone: [facility] Koipip15-92-9659 13:26-0500 Respiratory rate18 /minDramyais Karenlong DO Work Phone: [facility] Eyohmm20-62-0790 13:26-7767PmU3% (BldA) [Mass fraction]94 %Bobybianka Joneslong DO Work Phone: [facility]03-07-2025 13:26-0500Systolic blood fewqwyap145 mm[Hg]Boby Earl DO Work Phone: [facility]01-10-2025 11:47-0500Body ymxgki914.5 cmAmador Abdalla MD Work Phone: [facility] HospitalWchboaxdip36-21-9201 11:47-0500Body mass index (BMI) [Ratio]33.47 kg/m2Amador Abdalla MD Work Phone: [facility] HospitalWoldyypdki13-67-1408 11:47-0500Body temperature 97.11 [degF]Amador Abdalla MD Work Phone: [facility] HospitalXosnqxwbdg81-22-6471 11:47-0500Body dsrmel59.01 kgAmador Abdalla MD Work Phone: [facility] HospitalYolmyaaxsm86-48-1707 11:47-0500Diastolic blood rrvgitkr52 mm[Hg]Amador Abdalla MD Work Phone: [facility] HospitalEckjbrbuqi46-84-5712 11:47-0500Heart rate77 /min Amador Abdalla MD Work Phone: [facility] HospitalQxidlyleyk51-32-1715 11:47-0500Respiratory rate22 /minAmador Abdalla MD Work Phone: [facility] HospitalNwdxaqexuf85-99-3998 11:47-0496MzZ5% (BldA) [Mass fraction]97 %Amador Abdalla MD Work Phone: noHaw[facility] HospitalHplzujeshd07-54-7862 11:47-0500Systolic blood uplqvksg530 mm[Hg]Amador Abdalla MD Work Phone: [facility] HospitalPrdkmozlxv55-79-8083 10:05-0500Body zcynyz459.5 cmTurner Wilkins DPM Work Phone: noHaw[facility] HospitalOrxfhzuxwq42-75-6737 10:05-0500Body mass index (BMI) [Ratio]34.57 kg/w0KppiowsrTurner Wilkins DPM Work Phone: noHaw[facility] HospitalTsrnxzuicc52-86-0733 10:05-0500Body zekpnm05.73 kgTurner Wilkins DPM Work Phone: noHaw[facility] HospitalNjlzngbmbl11-38-7383 10:05-0500Respiratory rate18 /minTurner Wilkins DPM Work Phone: noHaw[facility] HospitalHabjjvwnhr73-32-6428 14:28-0400Body gpxekm215.5 cmAmador Abdalla MD Work Phone: NOHawth[facility] HospitalIbqxnbkctl26-64-6045 14:28-0400Body mass index (BMI) [Ratio]34.57 kg/m2Amador Abdalla MD Work Phone: [facility] HospitalChnounowjr91-10-3670 14:28-0400Body temperature 97.11 [degF]Amador Abdalla MD Work Phone: noHaw[facility] HospitalGfniplbiqd36-04-1002 14:28-0400Body arsrzv33.73 kgAmador Abdalla MD Work Phone: noHaw[facility] HospitalFvmlsevuiz04-49-0236 14:28-0400Diastolic blood gbruocbs46 mm[Hg]Amador Abdalla MD Work Phone: noHaw[facility] HospitalFsimpzcppj44-78-3309 14:28-0400Heart rate90 /min Amador Abdalla MD Work Phone: noHaw[facility] HospitalGcqpslvsaa75-45-4639 14:28-0400Respiratory rate20 /minAmador Abdalla MD Work Phone: [facility] HospitalGoewiuyzkx39-73-0619 14:28-7520YlG3% (BldA) [Mass fraction]95 %Amador Abdalla MD Work Phone: [facility] HospitalSmxzgfdgod11-34-5476 14:28-0400Systolic blood vuhifhgv079 mm[Hg]Amador Abdalla MD Work Phone: noHaw[facility] HospitalDaclzehrim70-66-5695 12:15-0400Body temperature 98.1 [degF]MD Amador Abdalla Work Phone: 1(180)674-[facility]05-07-2022 12:15-0400 Diastolic blood skzxjmke11 mm[Hg]MD Amador Abdalla Work Phone: 1(329)543-[address] [place], [place] [address]2305-07-2022 12:15-0400 Heart rate64 /minMD Amador Albrechteva Work Phone: 1(196)[address]05-07-2022 12:15-0400 Respiratory rate18 /minMD Amador Dobbinsadore Work Phone: [phone])[address]05-07-2022 12:15-0400 SaO2% (BldA) [Mass fraction]96 %MD Amador Abdalla Work Phone: 1(937)[address]05-07-2022 12:15-0400 Systolic blood mm[Hg]MD Amador Abdalla Work Phone: 1([phone])[address]05-07-2022 08:00-0400 Inhaled oxygen flow rate3 L/minMD Amador Albrechteva Work Phone: 1(505)[address]05-07-2022 06:00-0400 Body nozlte95.5 kgMD Amador Albrechteva Work Phone: 1(029)[address]05-06-2022 04:05-0400 Body hcndmi247.56 cmMD Amador Dobibnsadore Work Phone: [phone])623-[address] [place], [place] 2792305-06-2022 04:05-0400 Body mass index (BMI) [Ratio]34.9 kg/m2MD Amador Dobbinsadore Work Phone: 1(596)770-[address] [place], [place] [address]2305-05-2022 19:30-0400 Diastolic blood spikcgox55 mm[Hg]Et3 FiukonxcUppgcHpkzgo46-83-1189 19:30-0400 Heart rate80 /minEt3 UcydaueyHafmbOpnwtd53-24-5352 19:30-0400Respiratory rate16 /minEt3 WjmuhwlfIxuqwOklsif11-51-7541 19:30-9073AoM1% (BldA) [Mass fraction]98 % Et3 GoanznjxWayrwQychwg54-15-8667 19:30-0400Systolic blood lrwqfqmi110 mm[Hg]Et3 [facility] Encounters Encounter DateEncounter TypeCare ProviderFacilityStart: 12-10-2024 End: 60-18-3452dzhtolvrlfCLYKQA D WILLIAMSLicking Memorial Hospitaltart: 12-10-2024 End: 57-06-8172Llilet follow up visit related to original Devon Cueva MD Work Phone: [facility]/Trauma and Adult ReconstructionComment on above:Age-related osteoporosis with current pathological fracture with routine healing (Primary Dx); History of right hip hemiarthroplasty; Closed fracture of neck of right femur, sequelaStart: 12-09-2024 End: 69-33-5630Ealdpd OnlyJason [facility] [place] [place] Physicians Orthopedics/Trauma and Adult ReconstructionComment on above:S/P hip hemiarthroplasty (Primary Dx)Start: 12-02-2024 End: 78-47-7816bdynrfpunwRCXLAt[facility] HospitalStart: 11-27-2024 End: 84-93-7376grplhqofzdJUVIAtrium Health Carolinas Medical Center HospitalStart: 11-26-2024 Encounter for other preprocedural examinationSPro[facility] Start: 11-26-2024 End: 70-58-9891Cucqxugrjb and management of inpatientGian Green DO Work Phone: [facility] AcuteStart: 11-26-2024 End: 25-95-4389Fqookrghr department patient visitMARPershing Memorial Hospital HospitalStart: 50-79-2466Jdumbhykd for other preprocedural examinationSHAWN SANTIAGOKettering Health Daytontart: 37-83-1711zcnghcwfilCWOYTrumbull Regional Medical Centertart: 09-04-2024 End: 51-96-0025Rsvtmpl encounter procedureNicjayna Wilkins DPM Work Phone: [facility] CI PODIATRYComment on above:Type 2 diabetes mellitus without complication, unspecified whether penitentiary insulin use (HCC) (Primary Dx); Pain due to onychomycosis of toenails of both feet; Venous insufficiencyStart: 09-04-2024 End: 98-43-2129qfdttnxjplHLVFIZEL A BROWNNot AvailableStart: 09-04-2024 End: 24-26-1195Prxlvt Antonio Wilkins DPM Work Phone: [facility] CI PODIATRYStart: 09-04-2024 End: 62-18-9900Flnkwy flowsJuan Wilkins DPM Work Phone: [facility] CI PODIATRYStart: 09-03-2024 End: 87-73-2490Vhovww Derrell Abdalla MD Work Phone: [facility] CWM FMComment on above:Primary insomniaStart: 08-28-2024 End: 71-35-5541Cbnearravi Abdalla MD Work Phone: [facility] CWM FMStart: 08-28-2024 End: 35-67-6040Oqqbngravi Abdalla MD Work Phone: [facility] CWM FMStart: 08-28-2024 End: 49-84-7056Syhlki outpatient visit 25 minutesAmador Abdalla MD Work Phone: [facility] CWM FMComment on above:Type 2 diabetes mellitus with hyperglycemia, without long-term current use of insulin (HCC) (Primary Dx); Benign essential hypertension ; Fibromyalgia; Major depressive disorder, recurrent episode, mild ; Generalized anxiety disorder ; Chronic diastolic heart failure (HCC); Primary insomnia; Stage 3b chronic kidney disease (CKD) ([facility]-HCC)Start: 08-28-2024 End: 97-43-2025jzmiiabaerWOQK NADERERNot AvailableStart: 07-21-2024 End: 99-24-6993tiuapxjrcvQDVAUJ [facility] Start: 07-12-2024 End: 15-25-0110pyvuynklviIsmiopkj C BordnerFacility:CC Aebbetart: 06-19-2024 End: 35-84-5263swktjauqlbIPSGSAOM A BROWNNot AvailableStart: 06-19-2024 End: 31-30-5641Cfflqse encounter procedureTurner Wilkins DPM Work Phone: NO[facility] CI PODIATRYComment on above:Type 2 diabetes mellitus without complication, unspecified whether penitentiary insulin use (Primary Dx); Pain due to onychomycosis of toenails of both feet; Venous insufficiencyStart: 06-19-2024 End: 08-70-3752Pdomzx flowsheetTurner Isrrael Will DPM Work Phone: [facility] CI PODIATRYStart: 06-19-2024 End: 62-99-0219Otjztp leonidasheetRenanatasha Arcos Will DPM Work Phone: [facility] CI PODIATRYStart: 06-09-2024 End: 20-49-4479PdurirTyhv Naderer MD Work Phone: [facility] CWM FMComment on above:Primary osteoarthritis of both kneesStart: 06-03-2024 End: 11-89-7468MryzggVivfgphl Hohman MD Work Phone: [facility] FNR FMComment on above:Type 2 diabetes mellitus with hyperglycemia, without long-term current use of insulin (CMS/HCC); Chronic diastolic heart failure (CMS/HCC)Start: 05-27-2024 End: 48-02-9701Ycecuqu encounter Jeb Abdalla MD Work Phone: noms HealthcareStart: 05-27-2024 End: 10-92-2513Giimoy follow up visit related to original Alfredo Abdalla MD Work Phone: [facility] CWM FMComment on above:Medicare annual wellness visit, subsequent (Primary Dx); Upper respiratory tract infection, unspecified type; Benign essential hypertension (CMS/HCC); Type 2 diabetes mellitus with hyperglycemia, without long-term current use of insulin (CMS/HCC)Start: 05-27-2024 End: 08-81-3689Bjykyw Derrell Abdalla MD Work Phone: noMS CWM FMComment on above:Type 2 diabetes mellitus with hyperglycemia, without long-term current use of insulin (CMS/HCC) (Primary Dx)Start: 05-13-2024 End: 17-24-8046Gumlgputtu Salazar Earl Contratan.do Work Phone: [facility] Internal Medicine - Family MedicineComment on above:Chronic diastolic congestive heart failure (CMS-HCC) (Primary Dx); Essential hypertension; Other fracture of unspecified lumbar vertebra, subsequent encounter for fracture with routine healing; Generalized anxiety disorderStart: 05-06-2024 End: 05-83-2352gdritlishuMivjrl G Furlong DO Work Phone: [facility] Internal Medicine - Family MedicineComment on above:Chronic diastolic congestive heart failure (CMS-HCC) (Primary Dx); Other fracture of unspecified lumbar vertebra, subsequent encounter for fracture with routine healing; Essential hypertension; Type 2 diabetes mellitus with stage 3b chronic kidney disease, with long-term current use of insulin (CMS-HCC)Start: 04-29-2024 End: 06-95-7144Vertdkrikv Salazar Earl [employer].do Work Phone: [facility] Internal Medicine - Family MedicineComment on above:Chronic diastolic congestive heart failure (CMS-HCC) (Primary Dx); Type 2 diabetes mellitus with stage 3b chronic kidney disease, with long-term current use of insulin (CMS-HCC); Other fracture of unspecified lumbar vertebra, subsequent encounter for fracture with routine healing; Generalized anxiety disorderStart: 04-25-2024 End: 65-03-8176Sdpxulvofj Salazar Earl [employer].do Work Phone: [facility] Internal Medicine - Family MedicineComment on above:Acute combined systolic and diastolic heart failure (CMS-HCC) (Primary Dx); Other fracture of unspecified lumbar vertebra, subsequent encounter for fracture with routine healing; Urinary tract infection with hematuria, site unspecified; Pneumonia due to infectious organism, unspecified laterality, unspecified part of lung; Essential hypertension; Type 2 diabetes mellitus with stage 3b chronic kidney disease, with long-term current use of insulin (CMS-HCC); Iron deficiency anemia, unspecified iron deficiency anemia type; Personal history of transient ischemic attack (TIA), and cerebral infarction without residual deficits; Recurrent major depressive disorder, in remission ([facility]-HCC); Generalized anxiety disorder; Weakness; Old myocardial infarction; History of fallingStart: 04-02-2024 End: 75-14-8153Azvutouoh Result EncounterGeneric External Data ProviderNOMS External Department UnsolicitedStart: 04-02-2024 End: 53-84-4461Ogbxrzyjm Result EncounterGeneric External Data ProviderNOMS External Department UnsolicitedStart: 03-25-2024 End: 39-79-6280HllazbZpze Naderer MD Work Phone: n[facility] CW FMComment on above:Primary insomniaStart: 03-19-2024 End: 68-04-3605Lwwukpue Result EncounterAmador Abdalla MD Work Phone: n[facility] External Department UnsolicitedStart: 03-19-2024 End: 17-18-6238Tuiblglb Result EncounterAmador Abdalla MD Work Phone: n[facility] External Department UnsolicitedStart: 03-19-2024 End: 18-55-6724dfmhaxbeprNLKD NADEREDivine Savior Healthcare HospitalStart: 03-05-2024 End: 94-63-1289Rkltemprc Result EncounterAmador Abdalla MD Work Phone: n[facility] External Department UnsolicitedStart: 03-05-2024 End: 93-66-2157Easpvjjor Result EncounterAmador Abdalla MD Work Phone: n[facility] External Department UnsolicitedStart: 02-29-2024 End: 74-59-5367Onhvzt flowsHemant Abdalla MD Work Phone: n[facility] CW FMStart: 02-29-2024 End: 72-54-6819Fsjiwv Chong Abdalla MD Work Phone: [facility] CW FMStart: 02-29-2024 End: 44-36-6634gpxcthvgflCZOR NADERERNot AvailableStart: 02-29-2024 End: 18-02-5911Evflbl outpatient visit 25 minutesAmador Abdalla MD Work Phone: noMS CWM FMComment on above:Left elbow pain (Primary Dx); Type 2 diabetes mellitus with hyperglycemia, without long-term current use of insulin ([facility]); Benign essential hypertension ([facility] NETWORK/[facility]); Chronic diastolic heart failure ([facility]); Encounter for long-term (current) use of medications; Primary osteoarthritis of both knees; Stage 3b chronic kidney disease (CKD) ([facility]); Dyslipidemia ([facility]); Class 1 obesity due to excess calories with serious comorbidity and body mass index (BMI) of 33.0 to 33.9 in adult; Type 2 diabetes mellitus with diabetic chronic kidney disease ([facility])Start: 02-25-2024 End: 67-41-2684SswgtnLnvu Naderer MD Work Phone: noms CWM FMComment on above:Primary osteoarthritis of both kneesStart: 02-07-2024 End: 83-25-7855Kfsdrp Antonio Wilkins DPM Work Phone: noMS CI PODIATRYStart: 02-07-2024 End: 54-20-2408Yvacuy Antonio Wilkins DPM Work Phone: noMS CI PODIATRYStart: 02-07-2024 End: 21-68-9290Ouizypb encounter procedureTurner Wilkins DPM Work Phone: noms CI PODIATRYComment on above:Type 2 diabetes mellitus without complication, unspecified whether oysterman insulin use ([facility]) (Primary Dx); Pain due to onychomycosis of toenails of both feet; Venous insufficiencyStart: 02-07-2024 End: 96-08-6568vnmjoxdcxcVEZXEUUQ A BROWNNot AvailableStart: 01-23-2024 End: 69-65-0545XvwelnFxdj Naderer MD Work Phone: noms CWM FMComment on above:Primary osteoarthritis of both kneesStart: 01-22-2024 End: 89-00-5691XsijyfEsvh Naderer MD Work Phone: noms CWM FMComment on above:Primary insomniaStart: 11-18-2023 End: 71-50-3699Gkyytnbng Result EncounterGeneric External Data ProviderNOMS External Department UnsolicitedStart: 11-18-2023 End: 04-29-8959Qttsomefo Result EncounterGeneric External Data ProviderNOMS External Department UnsolicitedStart: 11-12-2023 End: 27-94-8646Bpinpm outpatient visit 25 minutesAmador Abdalla MD Work Phone: noms CWM FMComment on above:Type 2 diabetes mellitus with hyperglycemia, without long-term [...] 30-39.9); Acute UTI; Skin candidiasis; 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 (CMS/HCC); Type 2 diabetes mellitus with diabetic chronic kidney disease (HCC) (CMS/HCC) Start: 11-12-2023 End: 62-86-8698grlkenapizXOUX NADERERNot AvailableStart: 11-12-2023 End: 34-20-8136Sicuiu Chong Abdalla MD Work Phone: noms CWM FMStart: 11-12-2023 End: 17-69-4962Acardd Chong Abdalla MD Work Phone: noms CWM FMStart: 36-36-0245Hl Priscacarmen ReadOsmel DO Work Phone: [phone]-Pzgxz [facility] [address] DO Work Phone: Start: 07-03-2022 End: 69-68-1599oitxoilyjuQK AMADOR A NADERERFacility:Q4Zknod: 05-26-2022 End: 88-00-5799caqivxxurlWK AMADOR A NADERERFacility:U8Kmcew: 05-14-2022 End: 32-37-5702yngevjjmlrZH AMADOR A NADERERFacility:S4Xheyd: 05-04-2022 End: 17-62-6624hxapxyztyhIY AMADOR A NADERERFacility:E9Vkvef: 12-01-2021 End: 66-44-7934wtmbhyiunsCE AMADOR A NADERERFacility:W1Tjkor: 61-80-3093Zm [facility] Zafar Bolivar DO Work Phone: [phone]-Cpshy [facility] [address] DO Work Phone: Start: 09-09-2021 End: 89-01-2780scauacbyxqOS AMADOR A NADERERFacility:H3Vlvel: 08-31-2021 End: 15-05-0467hvdnxlrwpdAB AMADOR A NADERERFacility:D3Njaqq: 08-27-2021 End: 08-26-7772uzzagiygbzWBUEIMU D KATKOFacility:K6Coyto: 47-53-8547gbxcvrzptiLJ OBED DAISYRBELFacility:E2Sgwlf: 08-16-2021 End: 32-42-3946aloqkjvtfcXX BERNADETTE ANGELES .Facility:C6Aixmy: 08-01-2021 End: 06-13-0883kawhuyfaegLKYWZBR BOESFacility:F5Ayrle: 07-27-2021 End: 61-98-1910bqvypfjszkBWNCFJH BOESFacility:T6Qvlll: 07-15-2021 End: 61-76-1397xgjjskcoulQC AMADOR A NADERERFacility:P7Cdvox: 06-25-2021 End: 07-49-6083zchpilxfksDPZZLQK PROVIDERFacility:METROHealthStart: 06-24-2021 End: 22-74-6131Mzqyatwymb and management of inpatientMarc John [facility] Limatart: 06-24-2021 End: 83-28-1597Hqufhveohv and management of inpatientMD Amador Abdalla Work Phone: [facility] Start: 06-23-2021 End: 05-72-9240jfatebstcrRz9 ResourceMetroHealth Emergency Triage, Treat and TransportStart: 06-23-2021 End: 28-13-1200Pygtshusn department patient visitEt3 ResourceMetroHealth Emergency Triage, Treat and TransportComment on above:ArrivedStart: 11-21-2018 End: 46-17-4985Wunezsj encounter procedureOMAR AL-HOURANIFacility:UTMCStart: 09-19-2017 End: 36-62-4712Spnerny encounterDANILU LOPEZRUPAProtestant Hospitalveland Procedures DateProcedureProcedure DetailPerforming ClinicianStart: 43-77-2233SEJKYNT Christine Goodrich MD Work Phone: Start: 37-24-1608HORZKBV Christine Goodrich MD Work Phone: [phone]: 12-39-3272Lurjhlmolecmn metabolic Estrada Goodrich MD Work Phone: [phone]: 78-26-6263DZNVVZG Christine Goodrich MD Work Phone: [phone]: 30-74-2183KEKJNQH Christine Goodrich MD Work Phone: Start: 21-35-7282JQHEHGF Christine Goodrich MD Work Phone: [phone]: 92-78-6637AFTGLYX Christine Goodrich MD Work Phone: [phone]: 45-25-1802Lqsgjqxgsmqje metabolic panelSlakia Goodrich MD Work Phone: [phone]: 57-22-1063TXEACRX Christine Goodrich MD Work Phone: [phone]: 38-33-8754IWEQNMR Christine Goodrich MD Work Phone: [phone]: 55-56-0653KRHEXWL Christine Goodrich MD Work Phone: [phone]: 83-84-0341DCRUESI Christine Goodrich MD Work Phone: Start: 14-90-8582Anmxgnazjhpge metabolic panelSusan Namo MD Work Phone: Start: 47-45-2713HZOIJGC Christine Goodrich MD Work Phone: Start: 95-96-4571YUFLAMO Christine Goodrich MD Work Phone: [phone]: 97-98-6043ZIWELFH Christine Goodrich MD Work Phone: [phone]: 75-13-9973KO ECHO COMPLETE W Lindsey Goodrich MD Work Phone: [phone]: 32-43-8064Hpfvg dip stick/tablet reagent auto microscopyYasmin Goodrich MD Work Phone: Start: 47-47-6887VHIMAGR Christine Goodrich MD Work Phone: Start: 11-28-2024 End: 04-56-6077Sqomdousmklpc metabolic Estrada Goodrich MD Work Phone: Start: 04-36-9390Ok retroperitoneal real time w/image completeGonzalo Rolle MD Work Phone: Start: 50-80-4207ZASVBHB Christine Goodrich MD Work Phone: Start: 99-60-4654Zzuiytxxbg exam chest single view Dane Pretty MD Work Phone: Start: 21-49-1148Nhtfw hip unilateral with pelvis 2-3 viewsInocencia Kearney PA-C Work Phone: Start: 08-81-4895Cqxtrpnmlnj up to 1 hour physician/qhp timeKirby Cueva MD Work Phone: Start: 11-27-2024 End: 14-80-3637Fflaceuyupzylwaz hip partialKirby Cueva MD Work Phone: Start: 17-20-0513PADAZJIREBEKA Goodrich MD Work Phone: Start: 11-27-2024 End: 73-56-1465BPWNUUE Christine Goodrich MD Work Phone: Start: 98-85-9201Zxrdh function panelGonzalo Rolle MD Work Phone: Start: 72-16-3862Imqii depression screening assessment Maninder Byrd RNStart: 37-48-3446RLRVNRL GLUCOSEGonzalo Rolle MD Work Phone: Start: 20-92-1125UUBIMPO GLUCOSEGonzalo Rolle MD Work Phone: Start: 84-93-9687Ku lower extremity w/o contrast materialRuwhitley Green DO Work Phone: Start: 54-66-9139Xxjnx dip stick/tablet reagent auto microscopyGonzalo Rolle MD Work Phone: Start: 70-35-3062CRPCV OXIMETRY, SPOTGonzalo Rolle MD Work Phone: Start: 95-62-7469Exj routine ecg w/least 12 lds trcg only w/o i&rRussnilay Beltre Peter DO Work Phone: Start: 24-41-6694Izxivwyx screenMARC NADERERComment on above:Performed By: #### TSC #### [facility] ([facility]) [address] [place] [address] VIRStart: 11-26-2024 End: 32-30-9829Ergpt metabolic panel calcium totalRuwhitley Green DO Work Phone: Start: 11-62-6396Rppym typing serologic aboRussnilay Green DO Work Phone: Start: 70-56-7962Eeiohjdk screenMARC NADERERComment on above:Performed By: #### CBCA, 3016-3, LIVR, BMP #### [facility] ([id number]) [address] [place] [address], [place] [address] #### HA1C, 94322-7 #### [facility] ([id number]) [address] [place] [address], [address] [place], [place] [address]Gihxn: 34-36-4139Kahiaviw identified in Urine by CultureGeneric External Data ProviderStart: 79-90-1841Fcobk metabolic panel calcium totalAmador Abdalla MD Work Phone: Start: 85-40-3696ATM CBC WITH AUTO DIFFAmador Abdalla MD Work Phone: Start: 11-62-5035Lyriupex identified in Urine by CultureGeneric External Data ProviderStart: 75-74-0762QF Iliac/Fem w/LHCMD Amador Abdalla Work Phone: Start: 01-22-5989YE PCI CLAIMS DIRECTOR 1st Vessel RCA DESMD Amador Abdalla Work Phone: Start: 10-12-7283Qvsnxmczc of catheter into urinary bladderMD Amador Abdalla Work Phone: Start: 62-74-5890Kivubmwncyh injection iv push each new drugMD Amador Abdalla Work Phone: Start: 12-40-0604CT Amador Abdalla Work Phone: Plan of Treatment DateCare ActivityDetailAuthorStart: 95-76-3184Bapdyzt ScreeningTobacco Screening [facility] SystemStart: 74-89-7106Nikgchrflo ScreeningDepression Screening [facility] SystemStart: 11-32-5674Sqiajmi ScreeningTobacco Screening ProMMille Lacs [facility] SystemStart: 46-17-5767Xqpexqfcumirrh of varicella zoster vaccineZoster (Shingles) Vaccine (1 of 2)[facility] SystemComment on above:Postponed from 07/10/1997 (Patient Refused)Start: 25-36-4980ILdQ,Tdap and Td Vaccines (1 - Tdap)DTaP,Tdap and Td Vaccines (1 - Tdap)[facility] District HospitalComment on above:Postponed from 07/10/1966 (Patient Refused)Start: 22-62-3732Lixhl screening for proteinDiabetes: Urine Protein ScreeningNOHawthorn Children's Psychiatric HospitalStart: 60-39-1918Ftmly screening for proteinDiabetes: Urine Protein ScreeningNOMS HealthcareStart: 01-14-2025 End: 96-33-2809Zgvzzcg encounter zcvxamvuc12/26/2025 1:00 PM EST Office Visit [facility] [address] [place] [phone] Kirby Cueva MD [address] [place] [address] [facility] Adult ReconstructionStart: 12-10-2024 End: 86-18-7075Nmbdbdl encounter procedureProMedica Physicians Orthopedics/Trauma and Adult ReconstructionStart: 12-10-2024 End: 94-03-3877lfiyrhkmunYqoUyyncu Physicians Orthopedics/Trauma and Adult ReconstructionStart: 12-09-2024 End: 46-43-5233VN Pelvis and Hip - right 2 ViewsX-ray hip right 2-3 views with or without pelvis Imaging Routine S/P hip hemiarthroplasty Expected:12/09/2024, Expires: 12/09/2025[facility] Work Phone: Comment on above:Expected: 12/09/2024, Expires: 12/09/2025Start: 12-01-2024 End: 54-03-6215Licmziy encounter xqmubyxoa50/13/2025 1:15 PM EDT Office Visit [facility] [address] [place] [address] Amador Abdalla MD [address] [place] [address] [facility] FMStart: 61-89-6260Obdrnoghx vaccinationSTEWARD HEALTH CARE SYSTEM HealthcareStart: 89-98-4731Gizijapmby A1c measurementDiabetes: Hemoglobin Q1UYXHM Healthcare Start: 09-04-2024 End: 03-52-8490Xwixzwc encounter procedureNOMS CI PODIATRYComment on above:Type 2 diabetes mellitus without complication, unspecified whether penitentiary insulin use (HCC) (Primary Dx); Pain due to onychomycosis of toenails of both feet; Venous insufficiencyStart: 08-28-2024 End: 90-78-9099Oexfajfchk A1c/Hemoglobin.total in BloodHemoglobin A1c Lab Routine Type 2 diabetes mellitus with hyperglycemia, without long-term current use of insulin (HCC) Expected: 08/28/2024 (Approximate), Expires: 08/28/2025[facility] Work Phone: Comment on above:Expected: 08/28/2024 (Approximate), Expires: 08/28/2025Start: 08-28-2024 End: 04-27-8607Zowuhqz encounter procedureNOMS CWM FMComment on above:Arrived Start: 05-27-2024 End: 70-56-7229Pniibxi encounter /08/2025 11:00 AM EDT Office Visit [facility] [address] [place] [address] Amador Abdalla MD [address] [place] [address] [facility] CWM FMStart: 12-73-4019Tziyqovxo vaccinationInfluenza VaccineMercy Health St. [facility] Hospital SystemComment on above:Postponed from 10/21/2023 (Vaccine Not Available) Start: 04-24-2024 End: 03-00-7619Ftzwzoz encounter kyndqzbmp29/06/2025 10:00 AM EST Office Visit [facility] [address] [facility] [address] [place] [phone] Turner Wilkins DPCarmen [address] [facility] 5 [place] [address] N[facility] CI PODIATRYStart: 04-11-2024 End: 41-26-0022Eypvrrz encounter mzdyvnmhi36/21/2025 11:00 AM EST Office Visit [facility] [address] [place] [address] Boyd Mario, VIGNESH [address] [facility] [address] [place] [address] [facility] FB ORTHOPAEDICSStart: 04-07-2024 End: 95-73-1610Edlyavu encounter /17/2025 2:30 PM EST Office Visit [facility] [address] [place] [address] Amador Abdalla MD [address] [place] [address] [facility] FMStart: 03-13-2024 End: 08-12-3443Sqgasdt encounter /23/2025 1:30 PM EST Office Visit [facility] [address] [place] [phone] Jaun Alexis, CORE WINDER [address] [place], [place] [id number] N[facility] FB ORTHOPAEDICSStart: 02-29-2024 End: 85-77-1129Aikbi metabolic 1998 panel - Serum or PlasmaBasic metabolic panel Lab Routine Stage 3b chronic kidney disease (CKD) ([facility]) Expected: 02/28/19 25 (Approximate), Expires: 02/28/2025NOMS HealthcareComment on above:Expected: 02/29/2024 (Approximate), Expires: 02/28/2025Start: 02-29-2024 End: 15-88-9631OAT W Auto Differential panel - BloodCBC and differential Lab Routine Encounter for long-term (current) use of medications Expected: 02/19 (Approximate), Expires: 02/28/2025NOMS HealthcareComment on above: Expected: 02/29/2024 (Approximate), Expires: 02/28/2025Start: 02-29-2024 End: 38-09-5582Hletfbipzb A1c/Hemoglobin.total in BloodHemoglobin A1c Lab Routine Type 2 diabetes mellitus with hyperglycemia, without long-term current use of insulin (CMS/[facility]) Expected: 02/29/2024 (Approximate), Expires: 02/28/2025 NOM[facility] HealthcareComment on above:Expected: 02/29/2024 (Approximate), Expires: 02/28/2025Start: 02-29-2024 End: 00-37-2996Vbepclu function 2000 panel - Serum or PlasmaHepatic function panel Lab Routine Encounter for long-term (current) use of medications Expected: 02/29/2024 (Approximate), Expires: 02/28/2025NOID HealthcareComment on above: Expected: 02/29/2024 (Approximate), Expires: 02/28/2025Start: 02-29-2024 End: 39-27-0271Bkeni 1996 panel - Serum or PlasmaLipid panel Lab Routine Dyslipidemia ([facility]) Expected: 02/29/2024 (Approximate), Expires: 02/28/2025 [facility]OM[facility] HealthcareComment on above:Expected: 02/29/2024 (Approximate), Expires: 02/28/2025Start: 02-29-2024 End: 29-15-1650Ovyyizyuqrac/Creatinine panel in random UrineMicroalbumin / creatinine, urine ratio Lab Routine Type 2 diabetes mellitus with hyperglycemia, without long-term current use of insulin ([facility]) Expected: 02/29/2024 (Approximate), Expires: 02/28/2025[facility] Work Phone: Comment on above:Expected: 02/29/2024 (Approximate), Expires: 02/28/2025Start: 02-29-2024 End: 81-72-8698Rxdiqrosish [Units/volume] in Serum or PlasmaTSH Lab Routine Class 1 obesity due to excess calories with serious comorbidity and body mass index(BMI) of 33.0 to 33.9 in adult Expected: 02/29/2024 (Approximate), Expires: 02/28/2025NOID HealthcareComment on above:Expected: 02/29/2024 (Approximate), Expires: 02/28/2025Start: 02-29-2024 End: 46-17-4308JX Knee - left 1 or 2 ViewsXR knee 1 or 2 views left Imaging Routine Primary osteoarthritis of both knees Expected: 02/29/2024, Expires: 02/28/2025NOMS HealthcareComment on above:Expected: 02/29/2024, Expires: 02/28/2025Start: 02-29-2024 End: 89-94-8123RP Knee - right 1 or 2 ViewsXR knee 1 or 2 views right Imaging Routine Primary osteoarthritis of both knees Expected: 02/29/2024, Expires: 02/28/2025NOM[facility] HealthcareComment on above:Expected: 02/29/2024, Expires: 02/28/2025Start: 02-29-2024 End: 53-25-5221Iocjkdq encounter fsgczoivo02/10/2025 11:30 AM EST Office Visit [facility] [address] [place] [address] Amador Abdalla MD [address] [place] [address] [facility] FMStart: 02-07-2024 End: 39-53-3284Luraynh encounter procedureNOMS CI PODIATRYComment on above:Type 2 diabetes mellitus without complication, unspecified whether oysterman insulin use ([facility]) (Primary Dx); Pain due to onychomycosis of toenails of both feet; Venous insufficiencyStart: 28-14-6024Pgloqghouq A1c measurementDiabetes: Hemoglobin D6HAOCV HealthcareStart: 01-23-2024 End: 48-49-6367Vmnqktj encounter aclddbygl12/04/2024 10:00 AM EST Office Visit [facility] [address] [place] [address] Amador Abdalla MD [address] [place] [address] [facility] FMStart: 11-12-2023 End: 13-66-6251Epqrfno encounter poqhelnid10/23/2024 2:15 PM EDT Office Visit [facility] [address] [place] [address] Amador Abdalla MD [address] [place] [address] [facility] FMComment on above:ArrivedStart: 11-12-2023 End: 89-81-3219Qsecxda, urine, randomAlbumin, urine, random Lab Routine Type 2 diabetes mellitus with hyperglycemia, without long-term current use of insulin ([facility]) Expected: 11/12/2023 (Approximate), Expires: 11/11/2024[facility] Healthcare Work Phone: Comment on above:Expected: 11/12/2023 (Approximate), Expires: 11/11/2024Start: 11-12-2023 End: 02-56-8920Qgbuf metabolic 1998 panel - Serum or PlasmaBasic metabolic panel Lab Routine Stage 3b chronic kidney disease (CKD) ([facility]) Expected: 11/12/19 24 (Approximate), Expires: 11/11/2024[facility] HealthcareComment on above:Expected: 11/12/2023 (Approximate), Expires: 11/11/2024Start: 11-12-2023 End: 13-29-3757XHZ W Auto Differential panel - BloodCBC and differential Lab Routine Encounter for long-term (current) use of medications Expected: 10/21 (Approximate), Expires: 11/11/2024[facility] HealthcareComment on above: Expected: 11/12/2023 (Approximate), Expires: 11/11/2024Start: 11-12-2023 End: 58-00-7681Kpdvjeyzov A1c/Hemoglobin.total in BloodHemoglobin A1c Lab Routine Type 2 diabetes mellitus with hyperglycemia, without long-term current use of insulin ([facility]) Expected: 11/12/2023 (Approximate), Expires: 11/11/2024 [facility] HealthcareComment on above:Expected: 11/12/2023 (Approximate), Expires: 11/11/2024Start: 11-12-2023 End: 19-34-8234Trwedts function 2000 panel - Serum or PlasmaHepatic function panel Lab Routine Encounter for long-term (current) use of medications Expected: 11/12/2023 (Approximate), Expires: 11/11/2024NOID HealthcareComment on above: Expected: 11/12/2023 (Approximate), Expires: 11/11/2024Start: 11-12-2023 End: 50-06-7425Pkjce 1996 panel - Serum or PlasmaLipid panel Lab Routine Dyslipidemia (CMS/HCC) Expected: 11/12/2023 (Approximate), Expires: 11/11/2024 [facility] HealthcareComment on above:Expected: 11/12/2023 (Approximate), Expires: 11/11/2024Start: 11-12-2023 End: 92-42-7383Uygjgjqqhgi [Units/volume] in Serum or PlasmaTSH Lab Routine Obesity (BMI 30-39.9) Expected: 11/12/2023 (Approximate), Expires: 11/11/2024 [facility] HealthcareComment on above:Expected: 11/12/2023 (Approximate), Expires: 11/11/2024Start: 99-80-6144Deqnuhkan vaccinationNOID HealthcareStart: 09-06-2023 Urine screening for proteinDiabetes: Urine Protein ScreeningSouthPointe Hospital Start: 85-87-4670Xlfqu screening for proteinDiabetes: Urine Protein Screening [facility] HealthcareStart: 11-50-6895Rvysb chest X-rayXR chest 1V [facility] Hospitaltart: 96-60-4785Vfvysmhppyxu Vaccine: 65+ Years (2 of 2 - PCV)Pneumococcal Vaccine: 65+ Years (2 of 2 - PCV)[facility] HealthcareStart: 81-43-1377Ltji Risk ScreeningFall Risk ScreeningRegency Hospital Cleveland East Health SystemStart: 65-88-9528Ahxytcawqbgp vaccinationPneumococcal Vaccine(s) (65+ yrs) (1 - PCV) [facility]Start: 63-57-3559Crpzuxqhh for osteoporosisBone Densitometry [facility]HealthStart: 79-13-2672Rsavqmawtdptdv of varicella zoster vaccineZoster (Shingles) Vaccine (1 of 2)[facility] SystemStart: 59-59-9864Eotqrsxhhwq of occult blood in single stool specimenFITMetroHealthStart: 08-41-3865Ijmorxyfs for malignant neoplasm of breastMammographyMetroHealthStart: 07-10-1997 Screening for malignant neoplasm of colonCRC ScreeningMetroHealthStart: 19-58-2346Etrfvqio (RZV) Vaccine (1 of 2)Shingles (RZV) Vaccine (1 of 2) [facility]HealthStart: 51-55-2353Jzxjtjrmtgx [Mass/volume] in Serum or Plasma CholesterolMetroHealthStart: 76-09-9705IZyQ,Tdap and Td Vaccines (1 - Tdap) DTaP,Tdap and Td Vaccines (1 - Tdap)ProMflowers hospital Health SystemStart: 07-10-1966 Pneumococcal Vaccine: 65+ Years (1 of 2 - PCV)Pneumococcal Vaccine: 65+ Years (1 of 2 - PCV)[facility] HealthcareStart: 53-66-5985Sfargpiju C screeningHepatitis C AntibodyMetroHealthStart: 77-89-2455Anccvpg + diphtheria + acellular pertussis vaccine (product)Tdap BoosterMetroHealthStart: 65-01-7285Rtoxkrojah Screening Depression ScreeningProCincinnati Children'[facility] SystemStart: 01-99-9548Fitsadu Screening Tobacco ScreeningProCincinnati Children'S Hospital [facility] SystemStart: 62-81-8802Qqclgavh screening Diabetes: Retinopathy ScreeningSTEWARD HEALTH CARE SYSTEM HealthcareStart: 33-71-4022HWNYY-19 Vaccine (1)COVID-19 Vaccine (1)[facility]HealthStart: 25-40-8124Alfikgvpze A1c measurement Diabetes: Hemoglobin J5RMQLF HealthcareStart: 05-22-1948Medicare Annual Wellness (AWV)Medicare Annual Wellness (AWV)[facility] HealthcareStart: 75-34-4538Fspmqjgbp for malignant neoplasm of colonColonoscopyMetroHealthBacteria identified in Urine by CultureURINE CULTURE, ROUTINE Lab Routine 04/02/2024 3:22 PM [facility] metabolic 1998 panel - Serum or PlasmaBasic metabolic panel Lab Routine 03/19/2024 9:14 AM [facility] Work Phone: End: 85-29-0832Msorcrgr Pathology ReviewProSelect Medical Specialty Hospital - TrumbullFingerstick glucose checksProHelen Keller Hospital Work Phone: End: 75-56-0250Chkpmkjhnpsafdlrjalnf for Therapy MonitoringHighland District HospitalImmunoelectrophoresis for Therapy MonitoringHighland District HospitalPatient EducationCoronary Angioplasty (DC) Liraglutide Angina (DC) Drug Eluting Stents [facility] Work Phone: Patient referralWilson Memorial Hospital [facility]tr Work Phone: End: 69-89-9218Qlorjyl electrophoresis, serumProMedica Work Phone: Protein electrophoresis, serumMercy Health Willard Hospitalca Health System Immunizations Immunization DateImmunizationNotesCare EttjqbtlFzafepdb03-79-4700qrgbgkbag virus vaccine, unspecified formulationAmador Abdalla MD Work Phone: [facility]Pointe HospitalVtaencarpu05-64-9834voidqmfuf virus vaccine, unspecified formulationAmador Abdalla MD Work Phone: NOHawthorn [facility]'s [facility]iatric [facility] Payers DatePayer CategoryPayerPolicy [id number] HMO [id number] [id number]-[id number] 2022MedicareANTHEM MEDICARE ADVANTAGE ANTHEM MEDICARE ADVANTAGE [id number] 2021-Present [address] [place] [id number] 2022Medicare (Managed Care)[employer] MEDICARE ADVANTAGE [id number] [id number] [id number] 1960Medicaid [id number] [id number] 2.840.1.481417.3.57[id number] 2.840.1.823630.3.57[id number] 2.840.1.460687.3.57[id number] 2.840.1.399615.3.57[id number] 2.840.1.761911.3.57[id number] 2.840.1.294700.3.57[id number] 2.840.1.757006.3.57[id number] 2.840.1.147682.3.57[id number] 2.840.1.015540.3.579.2.9[id number] 2.840.1.925988.3.57[id number] 2.16840.1.102842.3.57[id number] 2.840.1.721516.3.57[id number] 2.16840.1.956123.3.579.[id number] 2.16840.1.792185.3.57[id number] 2.16840.1.835509.3.57[id number] 2.16840.1.365748.3.57[id number] 2.0.1.129519.3.57[id number] 2.0.1.904930.3.579.[id number] 2.0.1.274293.3.579.2.912365-76-0409Xbxpigj3805042 2.840.1.308116.3.579.2.370509-04-6132Fixvjgb0003376 2.840.1.255642.3.57[id number] 2.840.1.385244.3.579.[id number] 2.840.1.928812.3.579.[id number] 2.840.1.295747.3.579.[id number] 2.840.1.019070.3.579.2.[id number] 2.840.1.007502.3.579.2.19[id number] 2.840.1.090951.3.579.2.[id number] 2..840.1.864170.3.57[id number] 2..840.1.905757.3.579.2.[id number] 2.840.1.005550.3.579.2.2[id number] 2.840.1.335[id number] 2.840.1.173852.3.579.2.531 Social History DateTypeDetailFacilityTobacco smoking status NHISTobacco smoking consumption [facility] Work Phone: Start: 15-47-6076Vns Assigned At BirthNot on file [facility]: [facility] End: 72-56-8509Onuwinf smoking status NHISNever smoked tobacco (finding) [facility]: 76-21-8202Mej Assigned At BirthFemale [facility]: 10-19-[facility]22 End: 51-15-1938Pngokwz use and exposureSmokeless tobacco non-userNOMS Healthcare Start: 11-12-2023 End: 20-49-2413Dcovskydk beverage intakeLifetime non-drinker (finding)[facility] HealthcareStart: 11-12-2023 End: 14-00-0614Kimosgk of Social functionNOMS HealthcareStart: 11-12-2023 End: 42-09-4323Gablglr use panelNOMS HealthcareHow often do you need to have someone help you when you read instructions, pamphlets, or other written material from your doctor or pharmacy [SILS]SometimesNOMS HealthcareDo you belong to any clubs or organizations such as restorationist groups, unions, fraternal or athletic groups, or school groups?NoNOMS HealthcareAre you now , , , , never or living with a partner?WidowedNOMS HealthcareHow often to you have a drink containing alcohol?NeverN[facility] Healthcare How hard is it for you to pay for the very basics like food, housing, medical care, and heatingNot very hardNOMS HealthcareDo you feel stress - tense, restless, nervous, or anxious, or unable to sleep at night because yourmind is troubled all the time - these days [OSQ]To some extentNOMS Healthcare(I/We) worried whether (my/our) food would run out before (I/we) got money to buy more. Never trueNOMS HealthcareStart: 74-90-3772NkeQinuxg (finding)[facility] SystemHow often do you need to have someone help you when you read instructions, pamphlets, or other written material from your doctor or pharmacy [SILS] SometimesNOMS HealthcareStart: 11-30-2024 End: 00-44-0921Jqsrqzlxq beverage intakeEx-drinker (finding)[facility] SystemNEGATED: Highlighted rowStart: NINFHistory of tobacco usePassive smoker [facility] Medical Equipment Procedure CodeEquipment CodeEquipment Original TextEquipment IdentifierDates1 each by Other route Daily Use as [id number]: each Daily [id number]: 86-70-3430Kbe to inject 1-4 times daily as directed.[id number] Start: 06-18-2024 End: 53-86-2393Gzv to inject 1-4 times daily as directed.[id number]: 09-03-2024 End: 09-03-2025()[id number](10)[id number](21)N/A, 797888_[facility] Start: 11-27-2024()[id number](17)[id number](10)[id number](21)N/A, 797893_imp FDA Start: 11-27-2024()[id number](83)[id number](83)[id number](21)N/A, 797894_imp FDA Start: 11-27-2024 Goals DatePatient GoalDesired Activity/StatePersonal health goalComment on above: Evaluation of progress towards goal: plan to go to long term facility for rehab needs Functional Status LogjJjixxwtjacTojqesBefjmyov23-69-8725Jvymbkyvtm statusPatient at Baseline [facility] Work Phone: [facility] Mental Status McwzAxyetxvwnqXiygprZzoalobh07-27-6255Ucvdvabei functionCognitive Status Patient is Progressing Toward BaselineBrown [facility] Hospital Work Phone: [facility] Clinical Notes 06-24-2021 to 12-10-2024 Note Date & ExmwTeqeChqjbchm65-48-0718 History of Present illness Narrative* Kirby Cueva MD - 12/10/2024 2:00 PM EDT Images from the original note were not included. CC: S/P right hip hemiarthroplasty Subjective: HPI DOS: 11/27/24 - Right hip hemiarthroplasty 2 week(s) out Rivka Turner is a 79 y.o. female who is here today for a follow-up visit. She previously underwent the aforementioned surgery and returns today for a clinical and radiographic check. She is accompanied by her daughter today. She notes some right hip soreness but her bigger ongoing issue is neck pain. She has been evaluated by the provider at her F and started on some baclofen. She continues [...] 12/29/24 - Physical Therapy: Continue therapy at long term facility - Bone Health: Recommend evaluation in osteoporosis clinic - Educational information/handout provided - Follow up 1 month for a clinical check. No x-rays needed at that time unless patient is having increasing pain or change in her symptoms. QUOC ROBERTSON PA-C Based on the following criteria: POST OP GLOBAL I, Kirby Cueva MD, personally performed the face to face [...] time unless there is clinical concern. Kirby Cueva MD documented in this [facility]High[facility]10-13-2025 Miscellaneous Notes* Discharge Planning Note - LOVELY Ulloa - 12/01/2024 1:34 PM EDT DC plan SNF: [facility] accepting pt. We have insurance approval. Pt will discharge today.Transport arranged for 2pm. Patient, pt dtr SHAHNAZ Galvan, facility aware. HENS completed. CRF sent.BLS [...] Discharge Disposition SNF SNF Name [facility] SNF Accepted? Yes PreCertification Authorization Number [id number] PreCertification Expiration Date 12/04/24 PreCertification Expiration Time 3308 Does the patient need discharge transportation arranged? Yes Transportation Arranged Ambulance Patient choice offered Yes List Provided Yes [facility] List Provided Shelter Facility Respiratory Indicator Does the patient currently [...] Description: INTERVENTIONS: 1. Encourage patient or legal strategic partnership representative to report early pain and ask [...] per policy 9. Teach patient or legal strategic partnership representative interventions for comforting Outcome: Progressing Note: [...] at the bedside 7. Instruct patient/ patient strategic partnership representative about use of safety devices 8. Include patient/ patient strategic partnership representative in decisions related to safety Outcome: [...] hygiene technique. 7. Identify and instruct patient/patient strategic partnership representative in use of appropriate isolation precautionsfor identified infection/symptoms. 8. Provide and discuss with patient/patient strategic partnership representative on educational MDRO sheet. 9. Encourage and monitor nutritional status daily and consult day care director if indicated. 10. Implement neutropenic guidelines as needed. Outcome: Progressing Note: Evaluation of progress towards goal: PO cefuroxime continued, afebrile Problem: Knowledge Deficit Goal: Patient/patient strategic partnership representative demonstrates understanding of disease process, treatment [...] be free from fall Description: Interventions: 1. [place] to environment 2. Hourly rounds addressing the [...] non-skid footwear 11. Teach patient and patient strategic partnership representative to maintain environment for safety and [...] (cane, walker) within reach 19. Request patient strategic partnership representative bring adaptive equipment/mobility aids from home or obtain and provide as needed 20. Consult pharmacy regarding effects of med's affecting mobility, cognition, and alternatives 21. Obtain physician order for PT if risk factors associated with mobility are present 22. Obtain physician order for OT as appropriate 23. Utilize diversional activities 24. Educate patient and patient strategic partnership representative how to maintain a safe environment during visitationtimes (notify nurse prior to leaving bedside) 25. Consider appropriateness of medical or non-durable medical equipment technician 26. Set up voiding schedule as appropriate [...] of progress towards goal: up with kim laura with unsteady gait Problem: Potential For Peripheral [...] supplement as ordered 13. Collaborate with clinical day care director 14. Include patient/ patient's strategic partnership representative in decisions related to nutrition Outcome: [...] care as appropriate 6. Collaborate with case management/protective services social worker for discharge needs Outcome: Completed Note: Evaluation of progress towards goal: no spiritual needs * PT/OT/INTEGRATIVE MEDICINE PHYSICIAN - SARAH Bynum/Alexsander - 12/01/2024 11:03 AM [...] Equipment: gait belt, kim stedy, external cath Telemetry/Teller Head: No Oxygen Used: 2L Other: fall risk [...] 12/01/24 1102 TIFFANY Bynum Progressing 11/29/24 1605 SARAH Lopez/Alexsander Progressing 11/29/24 1042 SARAH Lopez/Alexsander Progressing Goal Note filed on 12/01/24 1102 [...] Patient will perform bed mobility with Modified [place] Dates: Start: 11/28/24 Expected End: 12/26/24 Description: Goal Description: Disciplines: OT Outcomes Date/Time User Outcome 12/01/24 1102 TIFFANY Bynum Not Progressing 11/29/24 1605 SARAH Lopez/Alexsander Progressing 11/29/24 1042 SARAH Lopez/Alexsander Progressing Goal Note filed on 12/01/24 1102 by TIFFANY Bynum Evaluation of progress towards goal: Problem: Dressing LB Dates: Start: 11/28/24 Disciplines: OT Goal: Patient will perform dressing LB with Modified [place] Dates: Start: 11/28/24 Expected End: 12/26/24 Description: [...] 11/29/24 1605 SARAH Lopez/Alexsander Progressing 11/29/24 1042 Jodie Kevin, SMITH/L Progressing Problem: Grooming Dates: Start: 11/28/24 Disciplines: OT Goal: Patient will perform grooming Independently Dates: Start: 11/28/24 Expected End: 12/26/24 Description: Goal Description: Disciplines: OT Outcomes Date/Time User Outcome 12/01/24 110 SARAH Bynum/Alexsander Progressing 11/29/24 1605 Jodie Brown SMITH/L Progressing Goal Note filed on 12/01/24 110 by TIFFANY Bynum Evaluation of progress towards goal: Problem: ROM [...] Bynum Evaluation of progress towards goal: Problem: Standing [...] Bynum Evaluation of progress towards goal: Problem: Strength Dates: Start: 11/28/24 Disciplines: OT Goal: Improve strength Dates: Start: 11/28/24 Expected End: 12/26/24 Description: Of extremity/ location:Patient will demo B UE HEP independently To facilitate: To improve ind with ADLs and functional transfers/mobility. Disciplines: OT Outcomes Date/Time User Outcome 12/01/24 110 TIFFANY Bynum Progressing Goal Note filed on 12/01/24 1102 by TIFFANY Bynum Evaluation of progress towards goal: Problem: Toilet Transfers Dates: Start: 11/28/24 Disciplines: OT Goal: Patient will perform toilet transfers with Modified [place] Dates: Start: 11/28/24 Expected End: 12/26/24 Description: Goal Description: Disciplines: OT Problem: Toileting Dates: Start: 11/28/24 Disciplines: OT Goal: Patient will perform toileting with Modified [place] Dates: Start: 11/28/24 Expected End: 12/26/24 Description: Goal Description: Disciplines: OT Problem: Transfers Dates: Start: 11/28/24 Disciplines: OT Goal: Patient will perform transfers with Modified [place] Dates: Start: 11/28/24 Expected End: 12/26/24 Description: Goal Description: Disciplines: OT Outcomes Date/Time User Outcome 12/01/24 1102 SARAH Bynum/Alexsander Progressing 11/29/24 1605 SARAH Lopez/Alexsander Progressing 11/29/24 1042 TIFFANY Lopez Progressing Goal Note filed on 12/01/24 1102 by TIFFANY Bynum Evaluation of progress towards goal: Occupational Therapy Care Plan (Resolved) There are no resolved problems. Principal Problem: Closed fracture of right hip, initial encounter ([facility]) Cosigned by PROSPER Mckinley/Alexsander at 12/01/2024 11:42 AM EDT Associated attestation - Kim Washington OTR/L - 12/01/2024 11:42 AM EDT I have reviewed and agree with this note and education documentation for this visit. * Discharge Planning Note - GEORGE TorresP - 12/01/2024 10:43 AM EDT DISCHARGE PLANNING NOTE BLS transport confirmed via [facility] going to [facility] on 12/01/2024 at 1400 * PT/OT/INTEGRATIVE MEDICINE PHYSICIAN - Ely Barrios, MANAGER STATE - 12/01/2024 8:42 AM EDT Physical Therapy [...] mobility pass Equipment: gait belt, kim stedy Telemetry/Teller Head: No Oxygen Used: 2 liters oxygen Other: [...] PT Outcomes Date/Time User Outcome 12/01/24 1313 Ely Barrios PTA Progressing 11/30/24 1654 Nellie Ibarra PTA Not [...] PT Outcomes Date/Time User Outcome 12/01/24 1313 Ely Barrios PTA Progressing 11/30/24 1654 Nellie Ibarra PTA Not [...] PT Outcomes Date/Time User Outcome 12/01/24 1313 Ely Barrios, MANAGER STATE Progressing 11/30/24 1654 Nellie Ibarra PTA Not Progressing 11/29/24 1714 Nellie Ibarra, MANAGER STATE Progressing 11/29/24 1404 Nellie Ibarra PTA Progressing Goal Note filed on 11/30/241653 by Nellie Ibarra PTA Evaluation of progress towards goal: Problem: Transfers Dates: Start: 11/28/24 Disciplines: PT Goal: Patient will perform transfers with Minimum Assist Dates: Start: 11/28/24 Expected End: 12/12/24 Description: Goal Description: Disciplines: PT Outcomes Date/Time User Outcome 12/01/24 1313 Ely Barrios, MANAGER STATE Progressing 11/30/24 1654 Nellie Ibarra MANAGER STATE Not Progressing 11/29/24 1714 Nellie Ibarra, MANAGER STATE Progressing 11/29/24 1404 Nellie Ibarra PTA Progressing Goal Note filed on 11/30/241653 by Nellie Ibarra PTA Evaluation of progress towards goal: Physical Therapy Care Plan (Resolved) There are no resolved problems. Principal Problem: Closed fracture of right hip, initial encounter ([facility]) Cosigned by Julia Tyson, PT at 12/01/2024 [...] Description: INTERVENTIONS: 1. Encourage patient or legal strategic partnership representative to report early pain and ask [...] per policy 9. Teach patient or legal strategic partnership representative interventions for comforting Outcome: Progressing Note: Evaluation of progress towards goal: Patient resting in bed comfortably. Patient states PRN pain medication working to control her pain as directed. * PT/OT/INTEGRATIVE MEDICINE PHYSICIAN - TIFFANY Forman - 11/30/2024 5:02 PM [...] belt, RW Weight Bearing Status: WBAT RLE Telemetry/Teller Head: No Oxygen Used: 2L Other: fall risk [...] (x2 with HOB elevated, maxcues for sequencing, [place] assist for hand placement, max A for trunk righting and LE transition to EOB.) Sit to Supine: (pt remained in recliner at end of session.) Other: pt requires much increased time/effort with max A x 2 for supine to sit this date requiring encouragement to participate as pt would prefer sba underwriter assist. pt retired to recliner at [...] Patient will perform bed mobility with Modified [place] Dates: Start: 11/28/24 Expected End: 12/26/24 Description: Goal Description: Disciplines: OT Outcomes Date/Time User Outcome 11/29/24 1605 SARAH Lopez/Alexsander Progressing 11/29/24 1042 SARAH Lopez/Alexsander Progressing Problem: Dressing LB Dates: Start: 11/28/24 Disciplines: OT Goal: Patient will perform dressing LB with Modified [place] Dates: Start: 11/28/24 Expected End: 12/26/24 Description: [...] Outcomes Date/Time User Outcome 11/29/24 1605 DONNA LopezA/L Progressing 11/29/24 1042 Jodie Brown SMITH/L Progressing Problem: Grooming Dates: Start: 11/28/24 Disciplines: OT Goal: Patient will perform grooming Independently Dates: Start: 11/28/24 Expected End: 12/26/24 Description: Goal Description: Disciplines: OT Outcomes Date/Time User Outcome 11/29/24 1605 DONNA LopezA/Alexsander Progressing Problem: ROM Dates: Start: 11/28/24 Problem: Sitting Balance Dates: Start: 11/28/24 Disciplines: OT Goal: Improve balance to good Dates: Start: 11/28/24 Expected End: 12/26/24 Description: Static Dynamic Disciplines: OT Outcomes Date/Time User Outcome 11/29/24 1605 Jodie Brown SMITH/L Progressing 11/29/24 1042 Jodie Brown SMITH/L Progressing Problem: Standing Balance Dates: Start: 11/28/24 Disciplines: OT Goal: Improve balance to good Dates: Start: 11/28/24 Expected End: 12/26/24 Description: Static Dynamic Disciplines: OT Outcomes Date/Time User Outcome 11/29/24 1605 Jodie Brown SMITH/L Progressing 11/29/24 1042 Jodie Brown SMITH/L Progressing Problem: Strength Dates: Start: 11/28/24 Disciplines: OT Goal: Improve strength Dates: Start: 11/28/24 Expected End: 12/26/24 Description: Of extremity/ location:Patient will demo B UE HEP independently To facilitate: To improve ind with ADLs and functional transfers/mobility. Disciplines: OT Problem: Toilet Transfers Dates: Start: 11/28/24 Disciplines: OT Goal: Patient will perform toilet transfers with Modified [place] Dates: Start: 11/28/24 Expected End: 12/26/24 Description: Goal Description: Disciplines: OT Problem: Toileting Dates: Start: 11/28/24 Disciplines: OT Goal: Patient will perform toileting with Modified [place] Dates: Start: 11/28/24 Expected End: 12/26/24 Description: Goal Description: Disciplines: OT Problem: Transfers Dates: Start: 11/28/24 Disciplines: OT Goal: Patient will perform transfers with Modified [place] Dates: Start: 11/28/24 Expected End: 12/26/24 Description: Goal Description: Disciplines: OT Outcomes Date/Time User Outcome 11/29/24 1605 TIFFANY Lopez Progressing 11/29/24 1042 TIFFANY Lopez Progressing Occupational Therapy Care Plan (Resolved) There are no resolved problems. Principal Problem: Closed fracture of right hip, initial encounter ([facility]) Cosigned by PROSPER Mckinley/Alexsander at 12/01/2024 7:23 AM EDT Associated attestation - Kim Washington OTR/L - 12/01/2024 7:23 AM EDT I have reviewed and agree with this note and education documentation for this visit. * PT/OT/INTEGRATIVE MEDICINE PHYSICIAN - Nellie Ibarra PTA - 11/30/2024 1:58 [...] Score: 9 CMS G Code Modifier: CL Therapy Plan [...] belt, RW Weight Bearing Status: WBAT RLE Telemetry/Teller Head: No Oxygen Used: 2L Other: fall risk [...] encouragement to initiate movements rather than allow sba underwriter to perform them for her. Pt [...] if pt is too fatigued for kim stedy later this PM. Gait Other: SHEILA this [...] Weightbearing x (L<>R sitting- mirror technique with sba underwriter sitting in front of pt) Seated unsupported x (at EOB) Standing alignment x (in kim stedy) Balance Sitting Balance: Static: Fair, Poor (fair-/poor) [...] had difficulty correcting balance and posture with sba underwriter's verbal cueing- required tactile and visual [...] PTA Not Progressing 11/29/24 1714 Nellie Ibarra MANAGER STATE Progressing 11/29/24 1404 Nellie Ibarra PTA Progressing [...] facilitate: Disciplines: PT Outcomes Date/Time User Outcome 11/30/24 [...] Closed fracture of right hip, initial encounter ([facility]) Cosigned by Julia Tyson PT at 12/01/2024 7:50 AM EDT Associated Julia Sweet PT - 12/01/2024 7:50 AM EDT I have reviewed and agree with this note and education documentation for this visit. * PT/OT/INTEGRATIVE MEDICINE PHYSICIAN - TIFFANY Forman - 11/30/2024 10:45 AM EDT Occupational Therapy OT Type of Visit: Medical deferral Reason For Medical Deferral: Vitals outside safe parameters (ELEVATED BP PER RN) Cosigned by DOMENICA Mckinley at 12/01/2024 7:23 AM EDT Associated Kim Oro OTR/L - 12/01/2024 7:23 AM EDT I have reviewed and agree with this note and education documentation for this visit. * PT/OT/INTEGRATIVE MEDICINE PHYSICIAN - Nellie Ibarra PTA - 11/30/2024 9:20 AM EDT Physical Therapy PT Type of Visit: Medical deferral Reason For Medical Deferral: RN deems inappropriate, Vitals outside safe parameters (Defer tx at this time per RN d/t elevated BP. Will attempt back when appropriate.) Cosigned by Connor Carreon PT at 11/30/2024 11:15 AM EDT Associated attestation - Connor Carreon PT - 11/30/2024 11:15 AM EDT I have reviewed and agree with this note and education documentation for this visit. * Plan of Care - Terra Etienne RN - 11/30/2024 8:53 AM EDT Problem: Pain Goal: Patient goal is pain score less than 4, able to rest, and participant in treatment plan as appropriate Description: INTERVENTIONS: 1. Encourage patient or legal strategic partnership representative to report early pain and ask [...] per policy 9. Teach patient or legal strategic partnership representative interventions for comforting Outcome: Progressing Note: [...] at the bedside 7. Instruct patient/ patient strategic partnership representative about use of safety devices 8. Include patient/ patient strategic partnership representative in decisions related to safety Outcome: [...] Description: INTERVENTIONS: 1. Encourage patient or legal strategic partnership representative to report early pain and ask [...] per policy 9. Teach patient or legal strategic partnership representative interventions for comforting 11/30/2024 0907 by SHAHNAZ Ellison Outcome: Progressing Note: Evaluation of progress towards goal: Pt states current pain regimen relieves pain. Prn meds available. Pt encouraged to express needs for pain medication on a scale of 1-10. Vitals signs being monitored per policy. 11/30/2024 0852 by SHAHNAZ Ellison Outcome: Progressing Note: Evaluation of progress [...] at the bedside 7. Instruct patient/ patient strategic partnership representative about use of safety devices 8. Include patient/ patient strategic partnership representative in decisions related to safety 11/30/2024 0907 by SHAHNAZ Ellison Outcome: Progressing Note: Evaluation of progress towards goal: RN implementing the above precautions to maintain pt safety. Pt remains free from falls and injuries since beginning of shift. Call light within reach. Bed rails up x2. Orientation reviewed. Hourly rounded maintained. Proper use of double identifiers used.Standard precautions maintained. 11/30/2024 0852 by SHAHNAZ Ellison Outcome: Progressing Note: Evaluation of progress [...] Description: INTERVENTIONS: 1. Encourage patient or legal strategic partnership representative to report early pain and ask [...] per policy 9. Teach patient or legal strategic partnership representative interventions for comforting Outcome: Progressing Note: Evaluation of progress towards goal: Patient states pain is well controlled with PRN pain medication. Patient does not complain of any pain at this time. * PT/OT/INTEGRATIVE MEDICINE PHYSICIAN - SARAH Lopez/Alexsander Broussard 11/29/2024 4:31 PM EDT Occupational Therapy Treatment [...] belt, RW Weight Bearing Status: WBAT RLE Telemetry/Teller Head: No Oxygen Used: room air (applied 2L [...] difficulty coming to standing d/t poor technique. Glass Maker demonstrated rocking technique for momentum with good [...] 11/29/24 1042 Jodie Brown SMITH/L Progressing Problem: Bathing LB Dates: Start: 11/28/24 [...] Patient will perform bed mobility with Modified [place] Dates: Start: 11/28/24 Expected End: 12/26/24 Description: Goal Description: Disciplines: OT Outcomes Date/Time User Outcome 11/29/24 1605 Jodie Brown SMITH/L Progressing 11/29/24 1042 DONNA LopezA/Alexsander Progressing Problem: Dressing LB Dates: Start: 11/28/24 Disciplines: OT Goal: Patient will perform dressing LB with Modified [place] Dates: Start: 11/28/24 Expected End: 12/26/24 Description: [...] User Outcome 11/29/24 1605 DONNA LopezA/Alexsander Progressing Problem: ROM Dates: Start: 11/28/24 Problem: Sitting Balance Dates: Start: 11/28/24 Disciplines: OT Goal: Improve balance to good Dates: Start: 11/28/24 Expected End: 12/26/24 Description: Static Dynamic Disciplines: OT Outcomes Date/Time User Outcome 11/29/24 1605 Jodie Brown SMITH/L Progressing 11/29/24 1042 Jodie Brown SMITH/L Progressing Problem: Standing Balance Dates: Start: 11/28/24 [...] Patient will perform toilet transfers with Modified [place] Dates: Start: 11/28/24 Expected End: 12/26/24 Description: Goal Description: Disciplines: OT Problem: Toileting Dates: Start: 11/28/24 Disciplines: OT Goal: Patient will perform toileting with Modified [place] Dates: Start: 11/28/24 Expected End: 12/26/24 Description: Goal Description: Disciplines: OT Problem: Transfers Dates: Start: 11/28/24 Disciplines: OT Goal: Patient will perform transfers with Modified [place] Dates: Start: 11/28/24 Expected End: 12/26/24 Description: Goal Description: Disciplines: OT Outcomes Date/Time User Outcome 11/29/24 1605 DONNA LopezA/Alexsander Progressing 11/29/24 1042 DONNA LopezA/Alexsander Progressing Occupational Therapy Care Plan (Resolved) There are no resolved problems. Principal Problem: Closed fracture of right hip, initial encounter ([facility]) Cosigned by MEL Thomas at 11/30/2024 6:53 AM EDT Associated attestation - Sharon Napier OT/L - 11/30/2024 6:53 AM EDT I have reviewed and agree with this note and education documentation for this visit. * PT/OT/INTEGRATIVE MEDICINE PHYSICIAN - Nellie Ibarra PTA - 11/29/2024 2:17 [...] 6 Clicks: Basic Mobility Raw Score: 12 [facility] G Code Modifier: CL Therapy Plan PT [...] catheter Weight Bearing Status: WBAT R LE Telemetry/Teller Head: No Oxygen Used: room air (inc to [...] Disciplines: PT Outcomes Date/Time User Outcome 11/29/24 1714 Nellie Ibarra PTA Progressing 11/29/24 [...] Closed fracture of right hip, initial encounter ([facility]) Cosigned by Connor Carreon PT at 11/30/2024 6:50 AM EDT Associated attestation - Connor Carreon, PT - 11/30/2024 6:50 AM EDT I have reviewed and agree with this note and education documentation for this visit. 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 Weight Bearing Status: WBAT RLE Telemetry/Teller Head: No Oxygen Used: 2L Other: fall risk [...] Outcome 11/29/24 Saskia SARAH Lopez/Alexsander Progressing Problem: Bathing LB Dates: [...] Patient will perform bed mobility with Modified [place] Dates: Start: 11/28/24 Expected End: 12/26/24 Description: Goal Description: Disciplines: OT Outcomes Date/Time User Outcome 11/29/24 Saskia SARAH Lopez/Alexsander Progressing Problem: Dressing LB Dates: Start: 11/28/24 Disciplines: OT Goal: Patient will perform dressing LB with Modified [place] Dates: Start: 11/28/24 Expected End: 12/26/24 Description: [...] Disciplines: OT Outcomes Date/Time User Outcome 11/29/24 EzequielSARAH Ott/Alexsander Progressing Problem: Grooming Dates: Start: 11/28/24 Disciplines: OT Goal: Patient will perform grooming Independently Dates: Start: 11/28/24 Expected End: 12/26/24 Description: Goal Description: Disciplines: OT Problem: ROM Dates: Start: 11/28/24 Problem: Sitting Balance Dates: Start: 11/28/24 Disciplines: OT Goal: Improve balance to good Dates: Start: 11/28/24 Expected End: 12/26/24 Description: Static Dynamic Disciplines: OT Outcomes Date/Time User Outcome 11/29/24 Saskia TIFFANY Lopez Progressing Problem: Standing Balance Dates: Start: 11/28/24 Disciplines: OT Goal: Improve balance to good Dates: Start: 11/28/24 Expected End: 12/26/24 Description: Static Dynamic Disciplines: OT Outcomes Date/Time User Outcome 11/29/24 104Riccardo TIFFANY Lopez Progressing Problem: Strength Dates: Start: 11/28/24 Disciplines: OT Goal: Improve strength Dates: Start: 11/28/24 Expected End: 12/26/24 Description: Of extremity/ location:Patient will demo B UE HEP independently To facilitate: To improve ind with ADLs and functional transfers/mobility. Disciplines: OT Problem: Toilet Transfers Dates: Start: 11/28/24 Disciplines: OT Goal: Patient will perform toilet transfers with Modified [place] Dates: Start: 11/28/24 Expected End: 12/26/24 Description: Goal Description: Disciplines: OT Problem: Toileting Dates: Start: 11/28/24 Disciplines: OT Goal: Patient will perform toileting with Modified [place] Dates: Start: 11/28/24 Expected End: 12/26/24 Description: Goal Description: Disciplines: OT Problem: Transfers Dates: Start: 11/28/24 Disciplines: OT Goal: Patient will perform transfers with Modified [place] Dates: Start: 11/28/24 Expected End: 12/26/24 Description: Goal Description: Disciplines: OT Outcomes Date/Time User Outcome 11/29/24 104Riccardo TIFFANY Lopez Progressing Occupational Therapy Care Plan (Resolved) There are no resolved problems. Principal Problem: Closed fracture of right hip, initial encounter ([facility]) Cosigned by Sharon Napier OT/L at 11/29/2024 11:47 AM EDT Associated attestation - Sharon Napier OT/L - 11/29/2024 11:47 AM EDT I have reviewed and agree with this note and education documentation for this visit. * PT/OT/INTEGRATIVE MEDICINE PHYSICIAN - Nellie Ibarra PTA - 11/29/2024 8:48 [...] catheter Weight Bearing Status: WBAT R LE Telemetry/Teller Head: No Oxygen Used: 2L Other: Fall risk [...] Disciplines: PT Outcomes Date/Time User Outcome 11/29/24 140 Nellie Ibarra PTA Progressing Goal [...] Closed fracture of right hip, initial encounter ([facility]) Cosigned by Johana Flores PT at 11/29/2024 [...] Description: INTERVENTIONS: 1. Encourage patient or legal strategic partnership representative to report early pain and ask [...] per policy 9. Teach patient or legal strategic partnership representative interventions for comforting Outcome: Progressing Note: [...] at the bedside 7. Instruct patient/ patient strategic partnership representative about use of safety devices 8. Include patient/ patient strategic partnership representative in decisions related to safety Outcome: [...] Description: INTERVENTIONS: 1. Encourage patient or legal strategic partnership representative to report early pain and ask [...] per policy 9. Teach patient or legal strategic partnership representative interventions for comforting Outcome: Progressing Note: [...] at the bedside 7. Instruct patient/ patient strategic partnership representative about use of safety devices 8. Include patient/ patient strategic partnership representative in decisions related to safety Outcome: [...] hygiene technique. 7. Identify and instruct patient/patient strategic partnership representative in use of appropriate isolation precautionsfor identified infection/symptoms. 8. Provide and discuss with patient/patient strategic partnership representative on educational MDRO sheet. 9. Encourage and monitor nutritional status daily and consult day care director if indicated. 10. Implement neutropenic guidelines as needed. Outcome: Progressing Note: Evaluation of progress towards goal: monitor for signs and symptoms of infection Problem: Knowledge Deficit Goal: Patient/patient strategic partnership representative demonstrates understanding of disease process, treatment [...] be free from fall Description: Interventions: 1. [place] to environment 2. Hourly rounds addressing the [...] non-skid footwear 11. Teach patient and patient strategic partnership representative to maintain environment for safety and [...] (cane, walker) within reach 19. Request patient strategic partnership representative bring adaptive equipment/mobility aids from home or obtain and provide as needed 20. Consult pharmacy regarding effects of med's affecting mobility, cognition, and alternatives 21. Obtain physician order for PT if risk factors associated with mobility are present 22. Obtain physician order for OT as appropriate 23. Utilize diversional activities 24. Educate patient and patient strategic partnership representative how to maintain a safe environment during visitationtimes (notify nurse prior to leaving bedside) 25. Consider appropriateness of medical or non-durable medical equipment technician 26. Set up voiding schedule as appropriate [...] Auth approved for admission to : [facility] (P# ; F# ) Approval # [id number] Valid for Dates: 11/28/2024 - 12/04/2024 * Discharge Planning Note - Celi Verdin - 11/28/2024 3:29 PM EDT DISCHARGE PLANNING NOTE Prior auth submitted to: [employer] Via: Johanne On behalf of : [facility] (P# ; F# ) We will provide reference number when available. * PT/OT/INTEGRATIVE MEDICINE PHYSICIAN - Lisa Gonzalez, PT - 11/28/2024 2:47 [...] hospitalization. Pt resides in assisted living at [facility]. She was using her walker and fell. She presented to [place] ED with Rt hip pain. Imaging showed Rt subcapital femoral neck fx. Pt was then transferred to [facility] for higher level of care. On 11/27/24 she underwent Rt hip hemiarthroplasty. She is WBAT RLE. Chief Complaint Patient presents with Fall Past Medical History: Diagnosis Date CHF (congestive heart failure) [place] Chronic kidney disease Coronary artery disease Dental disease Diabetes mellitus type 2, controlled ([facility] Dizziness GERD (gastroesophageal reflux disease) Hyperlipidemia Hypertension Myocardial infarction ([facility] Prolonged emergence from general anesthesia Past Surgical History: Procedure Laterality Date CHOLECYSTECTOMY CORONARY STENT PLACEMENT ESOPHAGOSCOPY HEMIARTHROPLASTY HIP Right 11/27/2024 Performed by Kirby Cueva MD at [facility] LAPAROSCOPIC HYSTERECTOMY OOPHORECTOMY OVARIAN CYST SURGERY 6 [...] 6 Clicks: Basic Mobility Raw Score: 11 CMS G Code Modifier: CL PT Treatment/Interventions: [...] belt, rw Weight Bearing Status: WBAT RLE Telemetry/Teller Head: No Oxygen Used: 3L NC Other: fall [...] Closed fracture of right hip, initial encounter ([facility]) * Discharge Planning Note - LOVELY Ulloa - 11/28/2024 2:21 PM EDT DC plan SNF: [facility] accepted pt. Tasked to [facility] to start pre-cert. BLS tx cert in dc packet. Will need HENS, CRF. Barriers: needs echo, renal ultrasound, potasium elevated - LOVELY Ullao 11/28/24 2:26 PM Ongoing Assessment for Discharge [...] Discharge Disposition SNF SNF Name [facility] SNF Accepted? Yes Does the patient need discharge transportation arranged? Yes Transportation Arranged Ambulance Patient choice offered Yes List Provided Yes [facility] List Provided Shelter Facility Respiratory Indicator Does the patient currently have home respiratory equipment? No Will the patient need home respiratory equipment upon discharge? No, it is expected that patient will NOT discharge home with respiratory DME needs * PT/OT/INTEGRATIVE MEDICINE PHYSICIAN - Halle Lea OT/L - 11/28/2024 2:21 PM EDT Occupational Therapy [...] using her walker and fell at her [facility] She presented to [place] ED with Rt hip pain. Imaging showed Rt subcapital femoral neck fx. Pt was then transferred to [facility] for higher level of care. On 11/27/24 she underwent Rt hip hemiarthroplasty. She is WBAT RLE. Patient lives in apartment in [facility], uses 4ww at baseline, has own [...] and be able to safely return to [facility]. . Past Surgical History: Procedure Laterality Date CHOLECYSTECTOMY CORONARY STENT PLACEMENT ESOPHAGOSCOPY HEMIARTHROPLASTY HIP Right 11/27/2024 Performed by Kirby Cueva MD at [facility] LAPAROSCOPIC HYSTERECTOMY OOPHORECTOMY OVARIAN CYST SURGERY . Past Medical History: Diagnosis Date CHF (congestive heart failure) [place] Chronic kidney disease Coronary artery disease Dental disease Diabetes mellitus type 2, controlled ([facility] Dizziness GERD (gastroesophageal reflux disease) Hyperlipidemia Hypertension Myocardial infarction ([facility] Prolonged emergence from general anesthesia 6 Clicks: [...] Home Living Type of Home: Assisted living ([facility]) Home Layout: One level Stairs to Enter: 0 Bathroom Shower/Tub: Walk-in shower Bathroom Toilet: Raised (Has toilet riser) Bathroom Equipment: Shower chair, Hand-held shower, Grab bars in shower, Grab bars around toilet, Commode (Uses bedside commode next to bed at night) Home Equipment: 4 Wheeled walker, Wheelchair-manual Other : Patient lives in apartment in [facility], uses 4ww at baseline, has own accessible bathroom with grab bars and shower chair to walk in shower, gets assist for meds and showers, was ind with other ADLs, local dtr assists as needed for shopping/transportation. Prior Function Lives With: Other (Comment) ([facility], lives alone in her own apartment) Receives Help From: (staff assit with meds and shower and as needed for taking out trash if too heavy for patient to put on her rollator. Dtr, Mandy assists with shopping and transportation.) Level of Mobility: Needs assistance with ADLs or functional transfers or gait Homemaking Assistance: Needs assistance Other: Patient lives in apartment in [facility], uses 4ww at baseline, has own [...] Patient will perform bed mobility with Modified [place] Dates: Start: 11/28/24 Expected End: 12/26/24 Description: Goal Description: Disciplines: OT Problem: Dressing LB Dates: Start: 11/28/24 Disciplines: OT Goal: Patient will perform dressing LB with Modified [place] Dates: Start: 11/28/24 Expected End: 12/26/24 Description: [...] Patient will perform toilet transfers with Modified [place] Dates: Start: 11/28/24 Expected End: 12/26/24 Description: Goal Description: Disciplines: OT Problem: Toileting Dates: Start: 11/28/24 Disciplines: OT Goal: Patient will perform toileting with Modified [place] Dates: Start: 11/28/24 Expected End: 12/26/24 Description: Goal Description: Disciplines: OT Problem: Transfers Dates: Start: 11/28/24 Disciplines: OT Goal: Patient will perform transfers with Modified [place] Dates: Start: 11/28/24 Expected End: 12/26/24 Description: Goal Description: Disciplines: OT Occupational Therapy Care Plan (Resolved) There are no resolved problems. Principal Problem: Closed fracture of right hip, initial encounter ([facility]) * PT/OT/INTEGRATIVE MEDICINE PHYSICIAN - Lisa Gonzalez, PT - 11/28/2024 10:43 AM EDT Physical Therapy PT Type of Visit: Medical deferral Reason For Medical Deferral: Off unit (2nd attempt to see pt she is still in echo. Will try back asable.) * PT/OT/INTEGRATIVE MEDICINE PHYSICIAN - Lisa Gonzalez, PT - 11/28/2024 10:42 AM EDT Physical Therapy PT Type of Visit: Medical deferral Reason For Medical Deferral: Off unit (2nd attempt to see pt she is still in echo. Will try back asable.) * PT/OT/INTEGRATIVE MEDICINE PHYSICIAN - Kim Washington OTR/L - 11/28/2024 10:41 [...] Description: INTERVENTIONS: 1. Encourage patient or legal strategic partnership representative to report early pain and ask [...] per policy 9. Teach patient or legal strategic partnership representative interventions for comforting Outcome: Progressing Note: [...] at the bedside 7. Instruct patient/ patient strategic partnership representative about use of safety devices 8. Include patient/ patient strategic partnership representative in decisions related to safety Outcome: [...] Description: INTERVENTIONS: 1. Encourage patient or legal strategic partnership representative to report early pain and ask [...] per policy 9. Teach patient or legal strategic partnership representative interventions for comforting Outcome: Progressing Note: [...] at the bedside 7. Instruct patient/ patient strategic partnership representative about use of safety devices 8. Include patient/ patient strategic partnership representative in decisions related to safety Outcome: Progressing Note: Evaluation of progress towards goal: call light within reach, bed in lowest position, patientwearing nonslip footwear Problem: Knowledge Deficit Goal: Patient/patient strategic partnership representative demonstrates understanding of disease process, treatment [...] Score of =/> 25 or indicated by [facility] Assessment Goal: Patient should be free from fall Description: Interventions: 1. [place] to environment 2. Hourly rounds addressing the [...] non-skid footwear 11. Teach patient and patient strategic partnership representative to maintain environment for safety and [...] (cane, walker) within reach 19. Request patient strategic partnership representative bring adaptive equipment/mobility aids from home or obtain and provide as needed 20. Consult pharmacy regarding effects of med's affecting mobility, cognition, and alternatives 21. Obtain physician order for PT if risk factors associated with mobility are present 22. Obtain physician order for OT as appropriate 23. Utilize diversional activities 24. Educate patient and patient strategic partnership representative how to maintain a safe environment during visitationtimes (notify nurse prior to leaving bedside) 25. Consider appropriateness of medical or non-durable medical equipment technician 26. Set up voiding schedule as appropriate [...] DISCHARGE PLANNING NOTE Referral sent to [facility] (P# ; F# ) * Op Note - Kirby Cueva MD - 11/27/2024 12:19 PM EDT ORTHOPAEDIC SURGERY OPERATIVE REPORT Date of Surgery: 11/27/2024 Surgeon: Kirby Cueva MD Cigarette Maker: Inocencia Kearney PA-C A skilled orthopedic physician litigation assistant was needed for assistance during this [...] hip hemiarthroplasty for femoral neck fracture (CPT 08877) Intraoperative fluoroscopy with surgeon interpretation, less than 1 hour (CPT 62203) Anesthesia: General IV Fluids: Per anesthesia record Tourniquet Time: None Estimated Blood Loss: 150 mL Complications: None Implants: [employer]pe [employer] Taperloc size 8 high offset femoral stem Pipe Biomet 44 mm femoral head with +0 mm taper Implant Name Type Inv. Item Serial No. [facility] Attendant Lot No. LRB No. Used Action STEM FEM 136MM 8MM 133D HI OS TPR TPRLK PPS TI HIP PRFT FULL - SN/A - [id number] Orthopedic ImplantSTEM FEM 136MM 8MM 133D HI OS TPR TPRLK PPS TI HIP PRFT FULL N/A Pipe [employer] [id number] Right 1 Implanted INSERT ACTB STD TPR HIP E-2 - SN/A - [id number] Orthopedic Implant INSERT ACTB STD TPR HIP E-2 N/A [employer]ipe [employer] [id number] Right 1 Implanted HEAD UNPLR 44MM BIOMR II E-2 HIP COCRMO MDLR - SN/A - [id number] Orthopedic Implant HEAD UNPLR [id number] II E-2 HIP COCRMO MDLR N/A [employer] [id number] Right 1 Implanted Drains: None Specimens: None Intraoperative Findings: Appropriate component positioning clinically and with fluoroscopy at the conclusion of the case. No evidence of intraoperative fracture. Evidence of infection was not visualized at time of surgery. Indications For Procedure: Rivka is a 79 y.o. female who sustained [...] canal with the use of a box storage worker osteotome and used a curette to remove [...] hip/cross table lateral) at that time. Kirby Cueva MD 11/27/2024 * Discharge Planning Note - LOVELY Ulloa - 11/27/2024 11:06 AM EDT SW met with patient and spoke with dtr Mandy via phone, introduced self & role. Pt was alert, oriented during assessment. Pt transferred to [facility] from [facility] where pt presented with c/o hip pain after fall. Pt states she tripped over her walker. Pt found to have R hip fracture. Pt will be going to OR today. Patient lives in assisted living apartment [facility] in [place]. Pt reports she uses walker for ambulation. Pt reports she is mostly independent with ADL's but does need assistance with bathing. No current home care outside of MD staff that assist her. Pt denied any concern getting or affording medications or food. Pt PCP and pharmacy verified. Pt denied any home oxygen. Pt denied any tobacco, alcohol or illicit drug use. DC Plan will be SNF: per pt and dtr they know pt will need a rehab stay prior to returning to her [place]. Pt/dtr would like [facility] as her 1st choice as pt has been there in the past. Referral was sent. Await acceptance, will need pre-cert. Will have therapy eval post op. SW did provide pt dtr with SNF list, [...] of Residence Assisted living Care Facility Name [facility] in [facility] No Does The Patient Have Existing [...] Yes List Provided Yes [facility] List Provided Shelter Facility 3-Midnight Additional Comments (If Applicable) * Plan of Care - Terra Etienne RN - 11/27/2024 9:10 AM EDT Problem: Pain Goal: Patient goal is pain score less than 4, able to rest, and participant in treatment plan as appropriate Description: INTERVENTIONS: 1. Encourage patient or legal strategic partnership representative to report early pain and ask [...] per policy 9. Teach patient or legal strategic partnership representative interventions for comforting Outcome: Progressing Note: [...] at the bedside 7. Instruct patient/ patient strategic partnership representative about use of safety devices 8. Include patient/ patient strategic partnership representative in decisions related to safety Outcome: Progressing Note: Evaluation of progress towards goal: RN implementing the above precautions to maintain pt safety. Pt remains free from falls and injuries since beginning of shift. Call light within reach. Bed rails up x2. Orientation reviewed. Hourly rounded maintained. Proper use of double identifiers used.Standard precautions maintained. * PT/OT/INTEGRATIVE MEDICINE PHYSICIAN - Lisa Gonzalez, PT - 11/27/2024 7:58 AM EDT Physical Therapy PT Type of Visit: Medical deferral Reason For Medical Deferral: Medical procedure ongoing (Pt has pending sx for repair of hip fx.) * PT/OT/INTEGRATIVE MEDICINE PHYSICIAN - Kim Washington OTR/Alexsander - 11/27/2024 7:26 AM EDT Occupational Therapy [...] Description: INTERVENTIONS: 1. Encourage patient or legal strategic partnership representative to report early pain and ask [...] per policy 9. Teach patient or legal strategic partnership representative interventions for comforting Outcome: Progressing Note: [...] at the bedside 7. Instruct patient/ patient strategic partnership representative about use of safety devices 8. Include patient/ patient strategic partnership representative in decisions related to safety Outcome: [...] hygiene technique. 7. Identify and instruct patient/patient strategic partnership representative in use of appropriate isolation precautionsfor identified infection/symptoms. 8. Provide and discuss with patient/patient strategic partnership representative on educational MDRO sheet. 9. Encourage and monitor nutritional status daily and consult day care director if indicated. 10. Implement neutropenic guidelines as needed. Outcome: Progressing Note: Evaluation of progress towards goal: monitor for signs and symptoms of infection Problem: Knowledge Deficit Goal: Patient/patient strategic partnership representative demonstrates understanding of disease process, treatment [...] Score of =/> 25 or indicated by [facility] Assessment Goal: Patient should be free from fall Description: Interventions: 1. [place] to environment 2. Hourly rounds addressing the [...] non-skid footwear 11. Teach patient and patient strategic partnership representative to maintain environment for safety and [...] (cane, walker) within reach 19. Request patient strategic partnership representative bring adaptive equipment/mobility aids from home or obtain and provide as needed 20. Consult pharmacy regarding effects of med's affecting mobility, cognition, and alternatives 21. Obtain physician order for PT if risk factors associated with mobility are present 22. Obtain physician order for OT as appropriate 23. Utilize diversional activities 24. Educate patient and patient strategic partnership representative how to maintain a safe environment during visitationtimes (notify nurse prior to leaving bedside) 25. Consider appropriateness of medical or non-durable medical equipment technician 26. Set up voiding schedule as appropriate (every 2 hours) Outcome: Progressing Note: Evaluation of progress towards goal: hourly rounding, provide assistive device, assist with ambulation documented in this encounterMer[facility] HospitalN[facility] [id number] Hospital course Narrative* Yasmin Goodrich MD - 12/01/2024 1:29 PM EDT Images from the original note were not included. [facility] Medicine Discharge Summary DISCHARGE NOTE Demographics: Patient Name: Rivka Turner : 1945 DATE OF ADMISSION: 11/26/2024 DATE OF DISCHARGE: 12/01/2024 DISCHARGE DIAGNOSES: Principal Problem: Closed fracture of right hip, [place] encounter [place] CONSULTANTS: Consulting Providers Provider Service Specialty Dane Pretty MD -- Nephrology PCP: Patient Care Team: Amador Abdalla MD as PCP - General ([facility]) HOSPITAL COURSE SUMMARY: Per HPI: This is a 79-year-old woman who has sustained a hip fracture transferred from [place] for intervention Mild acute kidney injury on [...] and Nephrology for further SPEP update and aircraft armament mechanic said that he would get her in contact with the human resources training manager as included on the after visit summary Patient is going to the nursing facility will have labs drawn Patient okay to restart Lasix and Jardiance as per Nephrology continue with amlodipine but reduce hydralazine to 50 mg t.i.d. Exam: BP 164/64 Pulse 62 Temp 36.9 C (98.4 F) (Oral) Resp 16 Ht 162.6 cm (5' 4 ) Wt 81.1 kg (178 lb 12.7 oz) LMP (LMP Unknown) SpO2 98% BMI 30.69 kg/m Intake/Output Summary (Last 24 hours) at 12/01/2024 1329 Last data filed at 12/01/2024 1218 Gross per 24 hour Intake 444.93 ml Output 1700 ml Net -1255.07 ml BP 164/64 Pulse 62 Temp 36.9 C (98.4 F) (Oral) Resp 16 Ht 162.6 cm (5' 4 ) Wt 81.1 kg (178 lb 12.7 oz) LMP (LMP Unknown) SpO2 98% BMI 30.69 kg/m General: Not in acute distress. Cooperative Neurological: [...] 8.6-50 mg DISCHARGE INSTRUCTION: Disposition: Discharge to EC Condition:Stable Activity: per therapy Diet: Adult nutrition supplements Adult diet Regular Texture; Consistent Carb 210 grams (1800 kcal); 2000 mg Sodium; Low Potassium (50-70 mEq); Fluid Restriction 1800 mL Adult diet Follow up: Dane Pretty MD [id number] [facility] [id number] Follow up in 2 week(s) . Dane Pretty MD [facility] [email or web address] Please call for appointment for post discharge follow-up : Office phone Number: [phone] Office If lab work up has not been ordered before appointment , please call office above and Labs will be ordered for you so that when you come for appointment we have lab results , have results faxed to the office please Jon Pretty MD [address] [place] [facility] [phone] Follow up in 2 week(s) For Iron infusion Amador Abdalla MD [address] [place] [address] Schedule an appointment as soon as possible [...] which was not discovered during the physician s review. If you believe an error has occurred, please notify your physician s office at your earliest convenience, so we can correct any mistakes. documented in this encounterHighland [facility] Hospital10-13-2025 History of Present illness Narrative* Dane Pretty MD - 12/01/2024 11:22 AM EDT Images from the original note were not included. Justin Abbasi [facility] Nephrology Progress Note Patient Name: Rivka Turner : 1945 Date of Service: 12/01/24 PCP: [...] bedside. Outpatient nephrology follow-up with Dr. Dane Pretty in 3 weeks; Address [address], [address], [place] [address], Phone office: [phone] Thank you for this consultation DANE PRETTY MD on 12/01/2024 at 11:22 AM [facility] [email or web address] Schedule : See Epic on-call schedule for [facility] ( [facility] ) Nephrology Working Hours : Epic chat during working hours, if no response please use on- call physician reach out as below After Hours : Answering service contact : [phone] Subjective Seen at bedside, no acute distress no chest pain or worsening of shortness of breath reported, no new complaint. Plan discussed in detail at bedside all questions answered in detail appropriate counseling done. Past Medical History: Diagnosis Date CHF (congestive heart failure) [place] Chronic kidney disease Coronary artery disease Dental disease Diabetes mellitus type 2, controlled [place] Dizziness GERD (gastroesophageal reflux disease) Hyperlipidemia Hypertension Myocardial infarction [place] Prolonged emergence from general anesthesia Past Surgical History: Procedure Laterality Date CHOLECYSTECTOMY CORONARY STENT PLACEMENT ESOPHAGOSCOPY HEMIARTHROPLASTY HIP Right 11/27/2024 Performed by Kirby Cueva MD at [facility] LAPAROSCOPIC HYSTERECTOMY OOPHORECTOMY OVARIAN CYST SURGERY [...] Resource Strain: Low Risk (01/22/2024) Received from [facility] Overall Financial Resource Strain (CARDIA) Difficulty of Paying Living Expenses: Not very hard Food Insecurity: No Food Insecurity (11/26/2024) Hunger Screening Food Insecurity - Worry: Never True Food Insecurity - Inability: Never True Transportation Needs: No Transportation Needs (11/26/2024) PRAPARE - Transportation Lack of Transportation (Medical): No Lack of Transportation (Non-Medical): No Physical Activity: Inactive (01/22/2024) Received from [facility] Exercise Vital Sign Days of Exercise per Week: 0 days Minutes of Exercise per Session: 0 min Stress: Stress Concern Present (01/22/2024) Received from [facility] [place] [facility] Occupational Health - Occupational Stress Questionnaire Feeling of Stress : To some extent Social Connections: Moderately Isolated (01/22/2024) Received from [facility] Social Connection and Isolation Panel [NHANES] Frequency of Communication with Friends and Family: Three times a week Frequency of Social Gatherings with Friends and Family: Twice a week Attends Congregational Services: 1 to 4 times per year [...] VITALS BP 177/49 Pulse 66 Temp 37.3 C (99.1 F) (Oral) Resp 16 Ht 162.6 cm (5' 4 ) Wt 81.1 kg (178 lb 12.7 oz) LMP (LMP Unknown) SpO2 94% BMI 30.69 kg/m Wt Readings from Last 3 Encounters: 11/30/24 81.1 kg (178 lb 12.7 oz) 11/26/24 79.8 kg (176 lb) 05/13/24 81.7 kg (180 lb 3.2 oz) BMI: Body mass index is 30.69 kg/m . I/O (24 Hours) Intake/Output Summary (Last 24 [...] HYDROmorphone ondansetron oxyCODONE oxyCODONE perflutren lipid microspheres (DEFINVaxInnate) dilution injection 1.43 mg/10 mL sodium chloride Results Review Renal Chemistry Results from last 7 days Lab Units 12/01/24 0602 11/30/24 0534 11/29/24 0532 11/28/24 0754 11/27/24 0542 SODIUM mmol/L 140 136 138 136 [...] 12/01/24 0602 11/30/24 0534 11/29/24 0532 11/28/24 0754 11/27/24 0542 WBC x10E9/L 5.9 8.1 7.0 9.1 [...] Internal Medicine Progress Note: 11/30/2024 Patient Name: Rivka Turner : 1945 Assessment and Plan: This is a 79-year-old woman who has sustained a hip fracture transferred from [place] for intervention Mild acute kidney injury on [...] her SGLT2 inhibitor on light of the JAIK which seemed to respond very slightly to [...] Exam: BP 154/66 Pulse 65 Temp 37.3 C (99.1 F) (Oral) Resp 18 Ht 162.6 cm (5' 4 ) Wt 81.1 kg (178 lb 12.7 oz) LMP (LMP Unknown) SpO2 96% BMI 30.69 kg/m Intake/Output Summary (Last 24 hours) at 11/30/2024 1839 Last data filed at 11/30/2024 1700 Gross per 24 hour Intake 950 ml Output 1900 ml Net -950 ml BP 154/66 Pulse 65 Temp 37.3 C (99.1 F) (Oral) Resp 18 Ht 162.6 cm (5' 4 ) Wt 81.1 kg (178 lb 12.7 oz) LMP (LMP Unknown) SpO2 96% BMI 30.69 kg/m General: Not in acute distress. Cooperative Sitting [...] tablet 250 mg 250 mg oral Q12H [facility] Inocencia Kearney PA-C 250 mg at 11/30/24 [...] injection 5,000 Units 5,000 Units subcutaneous Q8H [facility] HELLEN RameshC 5,000 Units at 11/30/24 1309 HYDROmorphone (DILAUDID) injection 0.25 mg 0.25 mg intravenous Q2H PRN Gonzalo Rolle MD 0.25 mg at 11/26/24 193 insulin lispro (HumaLOG) injection 1-4 Units 1-4 [...] Nightly Gonzalo Rolle MD 2 tablet at 11/29/24 2145 Labs: Recent Results (from the past 48 [...] Closed fracture of right hip, initial encounter ([facility]) Imaging Imaging has been reviewed in detail [...] which was not discovered during the physician s review. If you believe an error has occurred, please notify your physician s office at your earliest convenience, so we [...] Blood pressure 192/72, pulse 76, temperature 37.3 C (99.1 F), temperature source Oral, resp. rate 20, height 162.6 cm (5' 4 ), weight 81.1 kg (178 lb 12.7 oz), SpO2 96%. Intake/Output Summary (Last 24 hours) at 11/30/2024 1001 Last data filed at 11/29/2024 1312 Gross per 24 hour Intake 250 ml Output -- Net 250 ml General: Awake, alert, in no distress. HEENT: Atraumatic, normocephalic. Anicteric sclera. [place] and moist oral mucosa. No carotid bruit. No JVD. Chest: Bilateral air entry, clear to auscultation, no wheezing, rhonchi or rales. Cardiovascular: RRR, S1S2, no murmur, rub or gallop. Has lower extremity edema. Abdomen: Soft, non tender to palpation. Active bowel sounds x 4 quadrants. Musculoskeletal: Active ROM x 4 extremities. No cyanosis or clubbing. Integumentary: [place], warm and dry. Free from rash or lesions. Skin turgor normal. SENIOR SHAREPOINT ARCHITECT: Oriented to person, place and time. Speech [...] Internal Medicine Progress Note: 11/29/2024 Patient Name: Rivka Turner : 1945 Assessment and Plan: This is a 79-year-old woman who has sustained a hip fracture transferred from [place] for intervention Mild acute kidney injury on [...] Exam: BP 168/47 Pulse 55 Temp 36.3 C (97.3 F) (Oral) Resp 18 Ht 162.6 cm (5' 4 ) Wt 84.4 kg (186 lb 1.1 oz) LMP (LMP Unknown) SpO2 93% BMI 31.94 kg/m Intake/Output Summary (Last 24 hours) at 11/29/2024 1814 Last data filed at 11/29/2024 0930 Gross per 24 hour Intake 240 ml Output -- Net 240 ml BP 168/47 Pulse 55 Temp 36.3 C (97.3 F) (Oral) Resp 18 Ht 162.6 cm (5' 4 ) Wt 84.4 kg (186 lb 1.1 oz) LMP (LMP Unknown) SpO2 93% BMI 31.94 kg/m General: Not in acute distress. Cooperative Sitting [...] tablet 250 mg 250 mg oral Q12H [facility] Inocencia Kearney PA-C cholecalciferol (vitamin D3) tablet 2,000 Units 2,000 Units oral Daily Inocencia Kearney PA-C 2,000 Units at 11/29/24 0927 dextrose (GLUTOSE) 40 % gel 15 g 15 g oral PRN Gonzalo Rolle MD dextrose (GLUTOSE) 40 % gel 15 g 15 g oral PRN Yasmin Goordich MD dextrose 5 % (D5W) infusion 100 [...] injection 5,000 Units 5,000 Units subcutaneous Q8H [facility] Inocencia eKarney PA-C 5,000 Units at 11/29/24 1407 HYDROmorphone (DILAUDID) injection 0.25 mg 0.25 mg intravenous Q2H PRN Gonzalo Rolle MD 0.25 mg at 11/26/24 1931 insulin lispro (HumaLOG) injection 1-4 Units 1-4 Units subcutaneous Nightly Gonzalo Rolle MD 1 Units at 11/28/242133 insulin lispro (HumaLOG) injection 2-10 Units 2-10 Units subcutaneous TID with meals Yasmin Goodrich MD4 Units at 11/29/24 165 montelukast (SINGULAIR) tablet 10 mg 10 mg [...] Nightly Gonzalo Rolle MD 2 tablet at 11/28/242132 Labs: Recent Results (from the past 48 [...] (H) <120 mg/L URINE CREATININE,RDM 83.62 mg/dL U/PRO/WINDOWS SECURITY ANALYST RATIO CALC 1.52 (H) <=0.20 Narrative Nephrotic [...] Closed fracture of right hip, initial encounter ([facility]) Imaging Imaging has been reviewed in detail [...] which was not discovered during the physician s review. If you believe an error has occurred, please notify your physician s office at your earliest convenience, so we can correct any mistakes. * Cinthia Quinn RP - 11/29/2024 1:40 PM EDT [facility] Department of Pharmacy Pharmacist to Physician Communication The dose of cefuroxime for surgical prophylaxis has been changed to 250 mg every 12 hours per the [facility] approved renal dosing guidelines, based on an estimated creatinine clearance is 17.8 mL/min (A) (by C-G formula based on SCr of 2.28 mg/dL (H)). Thank you, Cinthia Quinn RP * Rodri Bravo MD - 11/29/2024 12:35 [...] Blood pressure 168/47, pulse 55, temperature 36.3 C (97.3 F), temperature source Oral, resp. rate 18, height 162.6 cm (5' 4 ), weight 84.4 kg (186 lb 1.1 oz), SpO2 93%. Intake/Output Summary (Last 24 hours) at 11/29/2024 1235 Last data filed at 11/29/2024 0930 Gross per 24 hour Intake 240 ml Output -- Net 240 ml General: Awake, alert, in no distress. HEENT: Atraumatic, normocephalic. Anicteric sclera. [place] and moist oral mucosa. No carotid bruit. No JVD. Chest: Bilateral air entry, clear to auscultation, no wheezing, rhonchi or rales. Cardiovascular: RRR, S1S2, no murmur, rub or gallop. Has lower extremity edema. Abdomen: Soft, non tender to palpation. Active bowel sounds x 4 quadrants. Musculoskeletal: Active ROM x 4 extremities. No cyanosis or clubbing. Integumentary: [place], warm and dry. Free from rash or lesions. Skin turgor normal. SENIOR SHAREPOINT ARCHITECT: Oriented to person, place and time. Speech [...] Bravo MD 11/29/24 12:35 PM * Kirby Cueva MD - 11/29/2024 8:08 AM EDT Orthopedic Progress Note Subjective No acute events overnight. Reports some continued pain within the right hip. Says she was able to mobilize with therapy yesterday. Objective BP 134/50 Pulse 56 Temp 36.4 C (97.6 F) (Oral) Resp 16 Ht 162.6 cm (5' 4 ) Wt 84.4 kg (186 lb 1.1 oz) LMP (LMP Unknown) SpO2 100% BMI 31.94 kg/m O2 Device: Nasal cannula Lab Results Component [...] distally. Leg lengths appear equivalent. Assessment/Plan : Rivka Turner is a 79 yrs female s/p right hip hemiarthroplasty for femoral neck fracture 11/27/2024 PLAN -weightbearing as tolerated right lower extremity, no hip precautions required -PT/OT - mobilization and transfers -calcium and vitamin-D supplementation -Ice/elevation -postoperative Ancef completed, continue one-week of prophylactic Ceftin -DVT ppx: Currently heparin q.8 hours, recommend at least aspirin 81 mg twice daily for 4 weeks at discharge -discharge planning Kirby Cueva MD 8:08 AM 11/29/2024 * Yasmin Goodrich MD - 11/28/2024 3:54 PM EDT Internal Medicine Progress Note: 11/28/2024 Patient Name: Rivka Turner : 1945 Assessment and Plan: This is a 79-year-old woman who has sustained a hip fracture transferred from [place] for intervention Mild acute kidney injury on [...] Comment: RN notified Pulse 56 Temp 36.8 C (98.2 F) (Oral) Resp 14 Ht 162.6 cm (5'4 ) Wt 82.1 kg (181 lb) LMP (LMP Unknown) SpO2 100% BMI 31.07 kg/m Intake/Output Summary (Last 24 hours) at 11/28/2024 1554 Last data filed at 11/28/2024 1200 Gross per 24 hour Intake 250 ml Output 520 ml Net -270 ml BP 123/44 Comment: RN notified Pulse 56 Temp 36.8 C (98.2 F) (Oral) Resp 14 Ht 162.6 cm (5'4 ) Wt 82.1 kg (181 lb) LMP (LMP Unknown) SpO2 100% BMI 31.07 kg/m General: Not in acute distress. Cooperative Neurological: [...] Gonzalo Rolle MD 1,000 mg at 11/28/24 08 atorvastatin (LIPITOR) tablet 80 mg 80 mg oral Daily Yasmin Goodrich MD 80 mg at 11/28/24826 buPROPion XL (WELLBUTRIN XL) 24 hr tablet 150 mg 150 mg oral Daily Yasmin Goodrich MD 150 mg at 11/28/24 08 calcium citrate (CALCITRATE) tablet 400 mg 400 mg oral TID with meals Inocencia Kearney PA-C 400 mg at 11/28/24 1400 carvediloL (COREG) tablet 12.5 mg 12.5 mg oral BID with meals Yasmin Goodrich MD 12.5 mg at 11/28/24 0827 ceFUROxime (CEFTIN) tablet 500 mg 500 mg oral Q12H [facility] Inocencia Kearney PA-C cholecalciferol (vitamin D3) tablet [...] injection 5,000 Units 5,000 Units subcutaneous Q8H [facility] Inocencia Kearney PA-C 5,000 Units at 11/28/24 [...] range has not been established by the poke in of this kit. The [place] [employer] recommends a Vitamin D [...] range has not been established by the poke in of this kit. The [place] [employer] recommends a Vitamin D [...] (H) <120 mg/L URINE CREATININE,RDM 83.62 mg/dL U/PRO/WINDOWS SECURITY ANALYST RATIO CALC 1.52 (H) <=0.20 Narrative Nephrotic [...] Closed fracture of right hip, initial encounter ([facility]) Imaging Imaging has been reviewed in detail [...] which was not discovered during the physician s review. If you believe an error has occurred, please notify your physician s office at your earliest convenience, so we can correct any mistakes. * Kirby Cueva MD - 11/28/2024 3:12 PM EDT Images [...] Comment: RN notified Pulse 56 Temp 36.8 C (98.2 F) (Oral) Resp 14 Ht 162.6 cm (5'4 ) Wt 82.1 kg (181 lb) LMP (LMP Unknown) SpO2 100% BMI 31.07 kg/m O2 Device: Nasal cannula General: Alert, cooperative, [...] found for the last 168 hours. Assessment/Plan Rivka Turner is a 79 yrs female s/p right [...] Dispo planning - noted PT/OT recommendations for long term facility Okay for discharge from orthopedic standpoint once medically stable Inocencia Kearney PA-C LOS: 2 days Inocencia Kearney PA-C 11/28/24 1517 Inocencia Kearney PA-C 11/28/24 1518 I, Kirby Cueva MD, personally performed the face to face diagnostic evaluation on this patient. I have reviewed the MONIKA's History, Exam, and MDM and agree with the assessment and plan as written. Kirby Cueva MD * Yasmin Goodrich MD - 11/27/2024 3:58 PM EDT Internal Medicine Progress Note: 11/27/2024 Patient Name: Rivka Tunrer : 1945 Assessment and Plan: This is a 79-year-old woman who has sustained a hip fracture transferred from [place] for intervention Mild acute kidney injury on [...] Exam: BP 129/49 Pulse 72 Temp 36.3 C (97.3 F) (Skin) Resp 15 Ht 162.6 cm (5' 4 ) Wt 75.8 kg (167 lb) LMP (LMP Unknown) SpO2 90% BMI 28.67 kg/m Intake/Output Summary (Last 24 hours) at 11/27/2024 1558 Last data filed at 11/27/2024 1431 Gross per 24 hour Intake 2500 ml Output 1100 ml Net 1400 ml BP 129/49 Pulse 72 Temp 36.3 C (97.3 F) (Skin) Resp 15 Ht 162.6 cm (5' 4 ) Wt 75.8 kg (167 lb) LMP (LMP Unknown) SpO2 90% BMI 28.67 kg/m General: Not in acute distress. Cooperative Neurological: [...] 1,000 mg 1,000 mg oral Q8H [place] Gely Rolle MD 1,000 mg at 11/27/24 0928 [...] iso-osmotic dextrose (40 mg/mL premix) 2,000 mg [id number] Inocencia Kearney PA-C [START ON 11/28/2024] ceFUROxime [...] Rolle MD 5 mg at 11/26/24 2250 [Transfer Hold] sennosides-docusate sodium (SENOKOT-S) 8.6-50 mg [...] Procedure Abnormality Status --------- ------ Light Blue Top[[id number]] Final result SST TOP[[id number]] Final result Please view results for these [...] range has not been established by the poke in of this kit. The [place] [employer] recommends a Vitamin D [...] range has not been established by the poke in of this kit. The [place] [employer] recommends a Vitamin D [...] range has not been established by the poke in of this kit. The [place] [employer] recommends a Vitamin D [...] Closed fracture of right hip, initial encounter ([facility]) Imaging Imaging has been reviewed in detail [...] which was not discovered during the physician s review. If you believe an error has occurred, please notify your physician s office at your earliest convenience, so we can correct any mistakes. * Kirby Cueva MD - 11/27/2024 11:52 AM EDT Orthopedic Progress Note Subjective No acute events overnight. Reports continued pain within the right hip. Objective BP 182/60 Pulse 72 Temp 36.5 C (97.7 F) (Temporal) Resp 18 Ht 162.6 cm (5' 4 ) Wt 75.8 kg(167 lb) LMP (LMP Unknown) SpO2 99% BMI 28.67 kg/m O2 Device: Nasal cannula Lab Results Component [...] noted on the CT scan. Assessment/Plan : Rivka Turner is a 79 yrs female with right [...] OR today for right hip hemiarthroplasty. Kirby Cueva MD 11:52 AM 11/27/2024 documented in this encounterHigh[facility] Hospital10-10-[facility]25 Consult note* NICOLE Cotton - 11/28/2024 11:21 AM EDTAssociated Order(s): IP CONSULT TO NUTRITION SERVICES NUTRITION ADULT INITIAL EVALUATION NUTRITION ASSESSMENT: Reason to be seen: geriatric hip fracture consult Patient History: Admit Diagnosis: Patient Active Problem List Diagnosis Chronic diastolic congestive heart failure (CMS-HCC) Other fracture of unspecified lumbar vertebra, subsequent encounter for fracture with routine healing Essential hypertension Iron deficiency anemia, unspecified Type 2 diabetes mellitus with stage 3b chronic kidney disease, with long-term current use of insulin (CMS-HCC) Personal history of transient ischemic attack (TIA), and cerebral infarction without residual deficits Acute combined systolic and diastolic heart failure (CMS-HCC) Pure hypercholesterolemia Recurrent major depressive disorder, in remission Gastroesophageal reflux disease Old myocardial infarction Generalized anxiety disorder Fibromyalgia Urinary tract infection with hematuria Pneumonia due to infectious organism Weakness History of falling Closed fracture of right hip, [place] encounter [place] Past Medical History: Past Medical History: Diagnosis Date CHF (congestive heart failure) ([facility] Chronic kidney disease Coronary artery disease Dental disease Diabetes mellitus type 2, controlled ([facility] Dizziness GERD (gastroesophageal reflux disease) Hyperlipidemia Hypertension Myocardial infarction ([facility]) Prolonged emergence from general anesthesia Past Surgical History: Past Surgical History: Procedure Laterality Date CHOLECYSTECTOMY CORONARY STENT PLACEMENT ESOPHAGOSCOPY HEMIARTHROPLASTY HIP Right 11/27/2024 Performed by Kirby Cueva MD at [facility] LAPAROSCOPIC HYSTERECTOMY OOPHORECTOMY OVARIAN CYST SURGERY [...] (H) 03/19/2024 Lab Results Component Value Date [id number] 11/26/2024 Lab Results Component Value Date [...] Q8H Gonzalo Rolle MD 1,000 mg at 11/28/24826 atorvastatin (LIPITOR) tablet [...] meals Yasmin Goodrich MD 12.5 mg at 11/28/24826 ceFUROxime (CEFTIN) tablet 500 mg 500 mg oral Q12H [facility] Inocencia Kearney PA-C cholecalciferol (vitamin D3) tablet [...] injection 5,000 Units 5,000 Units subcutaneous Q8H [facility] Inocencia Kearney PA-C 5,000 Units at 11/28/24 0516 HYDROmorphone (DILAUDID) injection 0.25 mg 0.25 mg intravenous Q2H PRN Gonzalo Rolle MD 0.25 mg at 11/26/24 1931 insulin lispro (HumaLOG) injection 1-4 Units 1-4 Units subcutaneous Nightly Gonzalo Rolle MD 2 Units at 11/27/241 insulin lispro (HumaLOG) injection 1-5 Units 1-5 Units subcutaneous TID with meals Gonzalo Rolle MD 2 Units at 11/28/24 0827 ondansetron (PF) (ZOFRAN) injection 4 mg 4 [...] Skin (per nursing flow sheets): Skin Color: [place] (11/28/24819) Skin Temp: Warm; Dry (11/28/24819) Wound [...] RLE Edema: +1 (11/28/24819) LLE Edema: +1 (11/28/24 0820) Intake/ Output Last 24 hrs: Intake/Output Summary [...] (Bed Scale, 11/27) Usual Body Weight: - [place] Body Weight: 54.5kg Percent [place] Body Weight: 139 Weight Changes: stable per above Body Mass Index: Body mass index is 31.07 kg/m . BMI Category: Obese class 1 (30.00- 34.99) Comparative Standards: Estimated Energy Needs: 6505-2511 kcals daily. Method and weight used: 25-30 kcal/kg IBW Estimated Protein Needs: 65-90 grams daily. Method and weight used: 1.2-2g protein/kg IBW Estimated Fluid Needs: 8214-2841 ml daily. Method weight used: 25-30 ml/kg [...] Gabriella Olvera R.D,L.D. Clinical dietitian Patient Touch extension:[phone] Direct Dial phone number: [phone] 11/28/24 11:43 AM * Dane Pretty MD - 11/28/2024 6:54 AM EDTAssociated Order(s): IP CONSULT TO NEPHROLOGY Images from the original note were not included. [facility] Nephrology Consultation Note Patient Name: Rivka Turner : 1945 Date of Service: 11/28/24 PCP: AMADOR ABDALLA MD Attending Physician: Yasmin Goodrihc MD Admission Date: 11/26/2024 Length of stay: [...] you have any questions or concerns. DANE PRETTY MD on 11/28/2024 at 6:54 AM Justin [facility] [email or web address] Schedule : See Epic on-call schedule for [facility] ( [facility] ) Nephrology Working Hours : Epic chat during working hours, if no response please use on- call physician reach out as below After Hours : Answering service contact : [phone] History of presenting illness 79-year-old female with [...] History: Diagnosis Date CHF (congestive heart failure) ([facility]) Chronic kidney disease Coronary artery disease Dental disease Diabetes mellitus type 2, controlled [place] Dizziness GERD (gastroesophageal reflux disease) Hyperlipidemia Hypertension Myocardial infarction ([facility]) Prolonged emergence from general anesthesia Past Surgical [...] Resource Strain: Low Risk (01/22/2024) Received from [facility] Overall Financial Resource Strain (CARDIA) Difficulty of Paying Living Expenses: Not very hard Food Insecurity: No Food Insecurity (11/26/2024) Hunger Screening Food Insecurity - Worry: Never True Food Insecurity - Inability: Never True Transportation Needs: No Transportation Needs (11/26/2024) PRAPARE - Transportation Lack of Transportation (Medical): No Lack of Transportation (Non-Medical): No Physical Activity: Inactive (01/22/2024) Received from [facility] Exercise Vital Sign Days of Exercise per Week: 0 days Minutes of Exercise per Session: 0 min Stress: Stress Concern Present (01/22/2024) Received from [facility] [place] [facility] Occupational Health - Occupational Stress Questionnaire Feeling of Stress : To some extent Social Connections: Moderately Isolated (01/22/2024) Received from [facility] Social Connection and Isolation Panel [NHANES] Frequency of Communication with Friends and Family: Three times a week Frequency of Social Gatherings with Friends and Family: Twice a week Attends Congregational Services: 1 to 4 times per year [...] Comment: RN notified Pulse 69 Temp 36.5 C (97.7 F) (Oral) Resp 13 Ht 162.6 cm(5' 4 ) Wt 82.1 kg (181 lb) LMP (LMP Unknown) SpO2 96% BMI 31.07 kg/m Wt Readings from Last 3 Encounters: 11/28/24 82.1 kg (181 lb) 11/26/24 79.8 kg (176 lb) 05/13/24 81.7 kg (180 lb 3.2 oz) BMI: Body mass index is 31.07 kg/m . I/O (24 Hours) Intake/Output Summary (Last 24 [...] Units 11/27/24 0542 11/26/24 1634 11/26/24 1335 SODIUM mmol/L 140 [...] EDT Chief complaint: Right hip pain HPI: Rivka Turner is a 79 y.o. female presents to [facility] with right hip pain. Patient states that she was walking too fast with her walker and fell onto her right side. She had immediate pain and inability to ambulate. She was seen at an outside hospital and subsequently transferred to the [facility] for definitive treatment. She denies pain [...] % (D5W) infusion, 100 mL/hr, intravenous, Continuous PRN, Gonzalo Rolle MD dextrose 50 % in water (D50W) 50% solution 25 mL, 25 mL, intravenous, PRN, Gonzalo Rolle MD glucagon HCL injection 1 mg, 1 [...] Vitals: BP 178/54 Pulse 59 Temp 36.7 C (98.1 F) (Oral) Resp 22 SpO2 91% General: Well-nourished, [...] Value Date VITD25 27.1 (L) 11/26/2024 DIAGNOSIS: Rivka Turner is a 79 y.o. female with right hip fracture PLAN: 1. Discussed with Dr. Bhagat 2. Patient to medicine 3. Geriatric hip fracture protocol 4. Hold anticoagulation 5. Plan for surgical fixation of her hip with Dr. Cueva tomorrow 6. Pain medication per primary service VIGNESH HODGE PA 11/26/241754 Cosigned by Kirby Cueva MD at 11/27/2024 11:52 AM EDT documented in this [facility]High[facility]10-[facility]25 Hospital Discharge instructions* Discharge Instructions* Inocencia Kearney PA-C - 11/27/2024 11:59 AM EDT ORTHOPAEDIC DISCHARGE INSTRUCTIONS Diagnosis: Right femoral neck fracture Procedure: Right hip hemiarthroplasty Follow-Up Appointment: Dr. Cueva on Future Appointments Date Time Provider Department Center 12/10/2024 8:45 AM Kirby Cueva MD [facility] [place] Office Location: [facility] [address] [place], [place] [id number] RN: Julia Smith - Dr King RN: Makeda Bhagat RN: Karine Jimenez RN: Benita Fernandez RN: Maninder Byrd - Dr. Cueva Call 911 immediately if you experience: Chest [...] Care Everywhere. * Hip fracture in adults Discharge instructions (Moroccan) * Osteoporosis and osteopenia (low bone mass) (Moroccan) * Preventing falls in adults (Moroccan) documented in this encounterHighland [facility] Hospital10-08-2025 Emergency department Note* Loren Cui RN - 11/26/2024 7:18 PM EDT [facility] calls requesting update. Glass Maker stated patient was transferred to [facility] ER. * Mandy Gannon RN - 11/26/2024 5:18 PM EDT Bed: 41 Expected date: Expected time: Means of arrival: Comments: 29 * Gian Green DO - 11/26/2024 4:39 PM EDT Images from the original note were not included. [facility] - EM[facility]PARTMENT Pt Name: Rivka Turner Birthdate: 1945 Chief Complaint: Chief Complaint Patient presents with Fall History of Present Illness: HPI Past Medical History: History reviewed. No pertinent past medical history. Past Surgical History: History reviewed. No pertinent surgical history. Family History: History reviewed. No pertinent family history. Social History: Social History Socioeconomic History Marital status: Social Drivers of Health Financial Resource Strain: Low Risk (01/22/2024) Received from [facility] Overall Financial Resource Strain (CARDIA) Difficulty of Paying Living Expenses: Not very hard Food Insecurity: No Food Insecurity (11/26/2024) Hunger Screening Food Insecurity - Worry: Never True Food Insecurity - Inability: Never True Transportation Needs: No Transportation Needs (09/24/2024) Received from [facility] [place] - Transportation Lack of Transportation (Medical): No Lack of Transportation (Non-Medical): No Physical Activity: Inactive (01/22/2024) Received from [facility] Exercise Vital Sign Days of Exercise per Week: 0 days Minutes of Exercise per Session: 0 min Stress: Stress Concern Present (01/22/2024) Received from [facility] [place] [facility] Occupational Health - Occupational Stress Questionnaire Feeling of Stress : To some extent Social Connections: Moderately Isolated (01/22/2024) Received from [facility] Social Connection and Isolation Panel [NHANES] Frequency of Communication with Friends and Family: Three times a week Frequency of Social Gatherings with Friends and Family: Twice a week Attends Congregational Services: 1 to 4 times per year Active Member of Clubs or Organizations: No Attends Club or Organization Meetings: Never Marital Status: Received from [facility] [place] Safety & Environment Housing Instability: Low Risk (09/24/2024) Received from [facility] Housing Stability Vital Sign Unable to Pay for Housing in the Last Year: No Number of Times Moved in the Last Year: 0 Homeless in the Last Year: No Review of Systems: Review of Systems Physical Exam: ED Triage Vitals [11/26/24 1627] Temp Heart Rate Resp BP SpO2 36.7 C (98.1 F) 60 18 174/53 94 % Temp Source Heart Rate Source Patient Position BP Location FiO2 (%) Oral Monitor Semi-fowlers Right arm -- Vitals: 11/26/24 1627 BP: 174/53 Temp: 36.7 C (98.1 F) TempSrc: Oral Pulse: 60 Resp: 18 SpO2: 94% MAP (mmHg): 89 Physical Exam Procedure: Procedures Re-evaluation: Re-Evaluation Medical Decision Making Amount and/or Complexity of Data Reviewed Labs: ordered. Radiology: ordered. ECG/medicine tests: ordered. Risk OTC drugs. Prescription drug management. ED Course: Clinical Impressions as of 11/26/24 1642 Closed fracture of right hip, initial encounter ([facility]) . ED Disposition ED Disposition Admit Date/Time SunNov 26, 2024 4:37 PM Comment At this time, the patient has objective evidence of an acute process that will likely require hospitalization for greater than 2 midnights. The patient will be admitted. Shared/Split Visit 16:20 EDT Tanya Diaz (ellie), scribed for and in the presence of: Dr. Melia Green who performed the above service. I, Dr. Melia Green personally performed a [id number] diagnostic evaluation on this patient. I personally made and approved the management plan for this patient and take responsibility for the patient management. Additional Notes/Findings: Rivka Turenr is a 79 y.o. female presenting to the ED for chief complaint of a fall. [facility] Denies injury anywhere else. Exam findings as [...] EDT Pt to ED via EMS from [place]. EMS reports pt was walking too fast with walker and [facility]. Pt presented to [place] ER where she was found to have a right subcapital femoral neck fracture. Pt denies LOC or hitting head. Pt presents a&ox4, vss, and NAD noted. * Mandy Gannon RN - 11/26/2024 4:15 PM EDT Bed: 29 Expected date: Expected time: Means of arrival: [facility] Comments: 79 YO F from [facility] ER transfer Rivka Turner. 1945 A&Ox4 Tripped over walker trying to get to hair appt 50mcg Fent 79 y/o F. Right subcapital femoral neck fracture. Dr. Bhagat (orthopedic) accepted to ER. Dr. Ness aware of patient. Question, call Access @ [phone] EMS: 65 HR 95%RA 152/56 ETA 15 min Right hip pain 08/28 documented in this encounterProctor HospitalCurefab10-08-2025 History and physical note* Gonzalo Rolle MD - 11/26/2024 4:41 PM EDT [facility] History & Physical 11/26/2024 Patient Name: Rivka Turner : 1945 Chief Complaint: Fall with right hip pain HPI: Rivka Turner is a 79 y.o. female with past medical history significant for diabetes type 2, insulin dependent, essential hypertension, fibromyalgia, CKD stage IIIA, heart failure with preservedejection fraction, anxiety and depression, who presented to the emergency department after being transferred from [place]. Patient was walking too fast with her walker, sustained a fall and developedsevere right hip pain. Patient denies loss of consciousness. . Only severe right hip pain. X-ray ofher hip showed right subcapital femoral neck fracture and patient was transferred to [facility] for further management. Patient denies chest [...] Exam: BP 174/53 Pulse 60 Temp 36.7 C (98.1 F) (Oral) Resp 18 SpO2 94% No intake [...] Procedure Abnormality Status --------- ------ Light Blue Top[[id number]] Final result SST TOP[[id number]] Final result Please view results for these [...] Gonzalo Rolle MD4:41 PM documented in this encounterHighland [facility] Hospital07-17-2025 History of Present illness Narrative* Turner Arcos Will, DPM - 09/04/2024 4:50 PM EDT Patient: Rivka Turner : 1945 PCP: Amador Abdalla MD SUBJECTIVE This is a 79 y.o. female that presents today with a [...] Arachnoid cyst Bradycardia CAD (coronary artery disease) 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 Cerebrovascular disease Chronic constipation Chronic diastolic heart failure (HCC) Chronic sinusitis, unspecified location CVA (cerebral vascular accident) ([facility]) Depression Diabetes ([facility]) Dyslipidemia Fibromyalgia SCOTTY (generalized anxiety disorder) GERD (gastroesophageal reflux disease) Hiatal hernia HTN (hypertension) Hyperkalemia Hyperlipidemia Insomnia, persistent Kidney disease MDD (major depressive disorder), recurrent episode, mild Overflow incontinence Primary osteoarthritis of both knees Pulmonary hypertension ([facility]) Seasonal allergic rhinitis due to pollen Stage 3b chronic kidney disease (CKD) ([facility]) Type 2 diabetes mellitus with hyperglycemia, without long-term current use of insulin ([facility]) Vitamin D deficiency Medications: Current Outpatient Medications: acetaminophen (Tylenol) 500 MG tablet, Take 1,000 mg by mouth every 8 (eight) hours if needed for mild pain, Disp: , Rfl: aspirin 81 MG chewable tablet, Chew 81 mg in the morning., Disp: , Rfl: atorvastatin (Lipitor) 80 MG tablet, TAKE 1 TABLET BY MOUTH EVERYDAY AT BEDTIME, Disp: 90 tablet, Rfl: 3 Blood Glucose Monitoring Suppl (ONE TOUCH ULTRA 2) w/Device kit, USE DIRECTED, Disp: 1 kit, Rfl:0 buPROPion XL (Wellbutrin XL) 150 MG 24 hr tablet, TAKE 1 TABLET BY MOUTH EVERY DAY, Disp: 90 tablet, Rfl: 3 carvedilol (Coreg) 25 MG tablet, Take 1 tablet (25 mg) by mouth in the morning and 1 tablet (25 mg)in the evening. Take with meals., Disp: 60 tablet, Rfl: 5 cholecalciferol (Vitamin D3) 25 MCG (1000 UT) tablet, TAKE 1 TABLET BY MOUTH EVERY DAY, Disp: 90 tablet, Rfl: [address] Boss (FreeStyle Violet 3 [place]) device, 1 each continuously, Disp: 1 each, Rfl: 0 Continuous Glucose Sensor (FreeStyle Violet 3 Sensor) misc, 1 each continuously, Disp: 2 each, Rfl: 11 empagliflozin (Jardiance) 25 MG, TAKE 1 TABLET BY MOUTH EVERY DAY, Disp: 30 tablet, Rfl: 5 famotidine (Pepcid) 40 MG tablet, TAKE 1 TABLET BY MOUTH EVERY DAY, Disp: 90 tablet, Rfl: 3 fluticasone (Flonase) 50 MCG/ACT nasal spray, Administer 2 sprays into each nostril Daily Shake gently. Before first use, prime pump. After use, clean tip and replace cap., Disp: , Rfl: furosemide (Lasix) 20 MG tablet, Take 1 tablet (20 mg) by mouth Daily, Disp: 90 tablet, Rfl: 3 glucose blood (OneTouch Ultra Test) test strip, 1 each by Other route Daily Use as instructed, Disp: 50 each, Rfl: 11 hydrALAZINE (Apresoline) 100 MG tablet, TAKE 1 TABLET BY MOUTH THREE TIMES A DAY, Disp: 270 tablet,Rfl: 3 insulin lispro (HumaLOG) 100 UNIT/ML injection, INJECT 2-10 UNITS UNDER THE SKIN IN THE MORNING AND2-10 UNITS AT NOON AND 2-10 UNITS IN THE EVENING. INJECT WITH MEALS. 151-200=2 UNITS, 201-250-4 UNITS, 251-300=6 UNITS, 301-350=8 UNITS, 351- 400=10 UNITS, OVER 400 CALL PROVIDER., Disp: 15 each, Rfl:3 insulin pen needle 29G x 12.7mm misc, Use to inject 1-4 times daily as directed., Disp: 100 each, Rfl: 11 isosorbide mononitrate ER (Imdur) 30 MG 24 hr tablet, TAKE 1 TABLET BY MOUTH EVERY DAY *DO NOT CRUSH OR CHEW*, Disp: 30 tablet, Rfl: 5 Lancets Micro Thin 33G misc, 1 each Daily, Disp: 50 each, Rfl: 11 metoclopramide (Reglan) 5 MG tablet, TAKE 1 TABLET BY MOUTH FOUR TIMES A DAY, Disp: 120 tablet, Rfl: 5 montelukast (Singulair) 10 MG tablet, TAKE 1 TABLET BY MOUTH EVERYDAY AT BEDTIME, Disp: 90 tablet, Rfl: 5 nitroglycerin (Nitrostat) 0.4 MG SL tablet, Place 0.4 mg under the tongue every 5 (five) minutes ifneeded., Disp: , Rfl: nystatin (Mycostatin) 130730 UNIT/GM powder, Apply 1 application topically in [...] MOUTH TWICE A DAY, Disp: 180 tablet, Rfl:3 sacubitril-valsartan (Entresto) 24-26 MG tablet, TAKE 1 TABLET BY MOUTH IN THE MORNING AND BEFORE BEDTIME, Disp: 60 tablet, Rfl: 5 sucralfate (Carafate) 1 g tablet, TAKE 1 TABLET BY MOUTH EVERYDAY AT BEDTIME, Disp: 90 tablet, Rfl:3 temazepam (Restoril) 15 MG capsule, TAKE 1 [...] 0 min Stress: Stress Concern Present (01/22/2024) [place] [facility] - Occupational Stress Questionnaire Feeling of Stress : To some extent Social Connections: Moderately Isolated (01/22/2024) Social Connection and Isolation Panel [NHANES] Frequency of Communication with Friends and Family: Three times a week Frequency of Social Gatherings with Friends and Family: Twice a week Attends Congregational Services: 1 to 4 times per year Active Member of Clubs or Organizations: No Attends Club or Organization Meetings: Never Marital Status: Intimate Partner Violence: Unknown (04/12/2023) Received from [facility] [place] Safety & Environment Fear of Current [...] and negative PT pedal pulses NEURO: 5.07 [place] monofilament test positive to digits and forefoot bilaterally 125Hz tuning fork positive to 1st MPJ bilaterally ORTHO: Positive pain on palpation to toenails of the left 1,2,3,4,5 toes and right 1,2,3,4,5 toes ASSESSMENT 1. Type 2 diabetes mellitus without complication, unspecified whether penitentiary insulin use (HCC) 2. Pain due to onychomycosis of toenails of both feet 3. Venous insufficiency PLAN Discussed proper foot care with patient today. Debride nails in length and thickness digits 1 through 10 Patient educated today on proper diabetic foot care including monitoring feet daily for any signs of infection openings in the skin or irregularities to both feet. Patient had a diabetic neurologicalexam today to both their feet and discussed proper shoe gear. Turner Wilkins DPM documented in this encounterSouthPointe [id number] NoteSpoke with patient and she agrees to nephrology referral. Faxed to [facility] in [place].[facility] History of Present illness Narrative* Amador Abdalla MD - 08/28/2024 2:27 PM EDTAssociated Problem(s): Type 2 diabetes mellitus with hyperglycemia, without long-term current use of insulin (HCC) Reports BS improved and due for A1C. Stick to ADA diet and limit carbs. * Amador Abdalla MD - 08/28/2024 2:27 PM EDTAssociated Problem(s): Primary insomnia Not sleeping well without restoril and resume. * Amador Abdalla MD - 08/28/2024 2:27 PM EDTAssociated Problem(s): Major depressive disorder, recurrent episode, mild Mood stable with medication and continue. * Amador Abdalla MD - 08/28/2024 2:26 PM EDTAssociated Problem(s): Generalized anxiety disorder Symptoms stable with medication and monitor. * Amador Abdalla MD - 08/28/2024 2:26 PM EDTAssociated Problem(s): Fibromyalgia Pain unchanged and use norco PRN. Try to increase activity and walk regularly. * Amador Abdalla MD - 08/28/2024 2:26 PM EDTAssociated Problem(s): Chronic diastolic heart failure (HCC) Edema stable and continue medication. Elevate legs PRN. Follow up with cardiology. * Amador Abdalla MD - 08/28/2024 2:26 PM EDTAssociated Problem(s): Benign essential hypertension BP low and c/o lightheadedness. Stop amlodipine and continue to monitor. * Amador Abdalla MD - 08/28/2024 1:45 PM EDT Images from the original note were not included. Subjective Patient ID: Rivka Turner is a 79 y.o. female who presents for Follow-up (3m f/up/), Dizziness, and Neck Pain. Follow up DM, HTN, fibromyalgia, depression, anxiety, insomnia, and CHF. Patient stable today. Reports BS much improved and 100-150. In assisted living and on regular schedule with meals which has helped. Tries to eat well and stick to ADA diet. Denies signs of elevated BS such as polyuria, polyphagia or polydipsia. Checking BP PRN and typically controlled. BP low today and reports recently feeling lightheaded. Yesterday had to stay in room because of symptoms. Edema controlled with medication.Cardiology recently increased lasix which helped. Mild swelling at end of day and if on feet a lot.Edema improved in am and with elevation. Fibromyalgia pain unchanged. Continues to have pain [...] xanax PRN and helps. Sleeping well with restoril but out for few weeks. With medication typically able to fall asleep and stay asleep. Wakes up rested in am. Dizziness Associated symptoms include neck pain. Pertinent negatives include no abdominal pain, chest pain, coughing, nausea or vomiting. Neck Pain Pertinent negatives include no chest pain. Review of Systems Respiratory: Negative for cough, shortness of breath and wheezing. Cardiovascular: Negative for chest pain and palpitations. Gastrointestinal: Negative for abdominal pain, diarrhea, nausea and vomiting. Genitourinary: Negative for dysuria. Musculoskeletal: Positive for neck pain. Neurological: Positive for dizziness. Objective Physical Exam Constitutional: General: She is [...] Assessment/Plan Problem List Items Addressed This Visit Chronic diastolic heart failure (HCC) Edema stable and continue medication. Elevate legs PRN. Follow up with cardiology. Fibromyalgia Pain unchanged and use norco PRN. Try to increase activity and walk regularly. Generalized anxiety disorder Symptoms stable with medication and monitor. Major depressive disorder, recurrent episode, mild Mood stable with medication and continue. Type 2 diabetes mellitus with hyperglycemia, without long-term current use of insulin ([facility]) - Primary Reports BS improved and due for A1C. Stick to ADA diet and limit carbs. Relevant Orders Hemoglobin A1c Benign essential hypertension BP low and c/o lightheadedness. Stop amlodipine and continue to monitor. Primary insomnia Not sleeping well without restoril and resume. documented in this encounterSouthPointe [id number] NoteUT Cardiology - [facility] Subjective Rivka Turner is a 79 y.o. year old female patient being seen for 1 year follow up. Patient states she feels ok. Patient complains of leg swelling Patient Active Problem List Diagnosis Coronary artery disease involving teller coronary artery of teller heart without angina pectoris CKD stage 4 due to type 2 diabetes mellitus (CMS/HCC) Essential hypertension Mixed hyperlipidemia Chronic diastolic heart failure (CMS/HCC) Carotid artery stenosis Abdominal mass Altered bowel function Angina pectoris Benign neoplasm of ascending colon Bradycardia Cardiovascular [...] pain, unspecified Major depressive disorder, recurrent, unspecified Muscle weakness (generalized) Nausea Obesity Other urogenital [...] medications Major depressive disorder, recurrent episode, mild Primary osteoarthritis of both knees Family History [...] dehydration and JAKI, treated by hydration at [facility] and did well. Since then she has been feeling well and has been eating and drinking well and no longer takes trazodone and lasix is 40 mg daily. No chest pain and no dyspnea. Her Cr on 07/09/2017 was 1.96 and down to 1.7 on 07/10/2017. Update 11/16/2017: She is seen in follow up. Most recently she was admitted to [facility] with decompensated diastolic heart failure. She was diuresed, went into JAKI with Cr 2.0 but her renal function is improving. She was changed from lasix to bumex. She is very nervous. She reports that she was getting chest discomfort during the admission but is ok now. Echocardiogram 11/02/2017: Normal ventricular systolic function. Moderate diastolic dysfunction. Severely elevated right sided pressures. [facility] 11/05/2017: Cr 1.55; BUN 55. NT-proBNP 4184 [facility] 11/12/2017: BUN 42, Cr 1.47, K 4.5. Update 01/04/2018: She is seen in follow up. Last visit I saw her after her admission to [facility] with heart failure and she developed JAKI. [...] 50% stenosis. Antegrade vertebral artery Doppler flows. [facility] 01/01/2018: Cr 1.65, BUN 40. K 3.9. Update 12/09/2018: She is seen in follow-up. Most recently she was admitted to the [facility] and transferred to [facility] due to decompensated diastolic heart failure in [...] tired. Wants to sleep all the time. Blo (more content not included)...[facility]05-24-2025 NotePatient Education Obstetrics and Gynecology Urinary Tract Infection, Adult A urinary tract infection (UTI) is an infection of any part of the urinary tract. The urinary tractincludes: ??? The kidneys. ??? The ureters. ??? The bladder. ??? The urethra. These organs make, store, and get rid of pee (urine) in the body. What are the causes? This infection is caused by germs (bacteria) in your genital area. These germs grow and cause swelling (inflammation) of your urinary tract. What increases the risk? The following factors may make you more likely to develop this condition: ??? Using a small, thin tube (catheter) to drain pee. ??? Not being able to control when you pee or poop (incontinence). ??? Being female. If you are female, these things can increase the risk: ? Using these methods to prevent : ? A medicine that kills sperm (spermicide). ? A device that blocks sperm (diaphragm). ? Having low levels of a female hormone (estrogen). ? Being . You are more likely to develop this condition if: ??? You have genes that add to your risk. ??? You are sexually active. ??? You take antibiotic medicines. ??? You have trouble peeing because of: ? A prostate that is bigger than normal, if you are male. ? A blockage in the part of your body that drains pee from the bladder. ? A kidney stone. ? A nerve condition that affects your bladder. ? Not getting enough to drink. ? Not peeing often enough. ??? You have other conditions, such as: ? Diabetes. ? A weak disease-fighting system (immune system). ? Sickle cell disease. ? Gout. ? Injury of the spine. What are the signs or symptoms? Symptoms of this condition include: ??? Needing to pee right away. ??? Peeing small amounts often. ??? Pain or burning when peeing. ??? Blood in the pee. ??? Pee that smells bad or not like normal. ??? Trouble peeing. ??? Pee that is cloudy. ??? Fluid coming from the vagina, if you are female. ??? Pain in the belly or lower back. Other symptoms include: ??? Vomiting. ??? Not feeling hungry. ??? Feeling mixed up (confused). This may be the first symptom in older adults. ??? Being tired and grouchy (irritable). ??? A fever. ??? Watery poop (diarrhea). How is this treated? Taking antibiotic medicine. ??? Taking other medicines. ??? Drinking enough water. In some cases, you may need to see a specialist. Follow these instructions at home: Medicines ??? Take [id number] and prescription medicines only as told by your doctor. ??? If you were prescribed an antibiotic medicine, take it as told by your doctor. Do not stop taking it even if you start to feel better. General instructions ??? Make sure you: ? Pee until your bladder is empty. ? Do not hold pee for a long time. ? Empty your bladder after sex. ? Wipe from front to back after peeing or pooping if you are a female. Use each tissue one time when you wipe. ??? Drink enough fluid to keep your pee pale yellow. ??? Keep all follow-up visits. Contact a doctor if: ??? You do not get better after 1?2 days. ??? Your symptoms go away and then come back. Get help right away if: ??? You have very bad back pain. ??? You have very bad pain in your lower belly. ??? You have a fever. ??? You have chills. ??? You feeling like you will vomit or you vomit. Summary ??? A urinary tract infection (UTI) is an infection of any part of the urinary tract. ??? This condition is caused by germs in your genital area. ??? There are many risk factors for a UTI. ??? Treatment includes antibiotic medicines. ??? Drink enough fluid to keep your pee pale yellow. This information is not intended to replace advice given to you by your health care provider. Make sure you discuss any questions you have with your health care provider. Document Revised: 09/12/2020 Document Reviewed: 09/17/2020 [employer] Patient Education ? 2023 [employer].[facility] 06-19-2024 History of Present illness Narrative* Turner Wilkins, DPM - 06/19/2024 4:40 PM EDT Patient: Rivka Arcos Alyssa : 1945 PCP: Amador Abdalla MD SUBJECTIVE [...] Arachnoid cyst Bradycardia CAD (coronary artery disease) (CMS/HCC) 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 (CMS/HCC) Cerebrovascular disease Chronic constipation Chronic diastolic heart failure (CMS/HCC) Chronic sinusitis, unspecified location CVA (cerebral vascular accident) ([facility]) Depression (CMS/HCC) Diabetes (CMS/HCC) Dyslipidemia (CMS/HCC) Fibromyalgia SCOTTY (generalized anxiety disorder) ([facility]) GERD (gastroesophageal reflux disease) Hiatal hernia HTN (hypertension) ([facility]) Hyperkalemia Hyperlipidemia ([facility]) Insomnia, persistent Kidney disease MDD (major depressive disorder), recurrent episode, mild (HCC) ([facility]) Overflow incontinence Primary osteoarthritis of both knees Pulmonary hypertension ([facility]) Seasonal allergic rhinitis due to pollen Stage 3b chronic kidney disease (CKD) ([facility]) Type 2 diabetes mellitus with hyperglycemia, without long-term current use of insulin ([facility]) Vitamin D deficiency Medications: Current Outpatient Medications: acetaminophen (Tylenol) 500 MG tablet, Take 1,000 mg by mouth every 8 (eight) hours if needed for mild pain, Disp: , Rfl: alogliptin (Nesina) 6.25 MG tablet tablet, Take 1 tablet (6.25 mg) by mouth Daily, Disp: 30 tablet,Rfl: 0 amLODIPine (Norvasc) 10 MG tablet, TAKE 1 TABLET BY MOUTH EVERY DAY, Disp: 90 tablet, Rfl: 3 aspirin 81 MG chewable tablet, Chew 81 mg in the morning., Disp: , Rfl: atorvastatin (Lipitor) 80 MG tablet, TAKE 1 TABLET BY MOUTH EVERYDAY AT BEDTIME, Disp: 90 tablet, Rfl: 3 Blood Glucose Monitoring Suppl (ONE TOUCH ULTRA 2) w/Device kit, USE DIRECTED, Disp: 1 kit, Rfl:0 buPROPion XL (Wellbutrin XL) 150 MG 24 hr tablet, TAKE 1 TABLET BY MOUTH EVERY DAY, Disp: 90 tablet, Rfl: 3 carvedilol (Coreg) 25 MG tablet, Take 1 tablet (25 mg) by mouth in the morning and 1 tablet (25 mg)in the evening. Take with meals., Disp: 60 tablet, Rfl: 5 cholecalciferol (Vitamin D3) 25 MCG (1000 UT) tablet, TAKE 1 TABLET BY MOUTH EVERY DAY, Disp: 90 tablet, Rfl: [address] Boss (FreeStyle Violet 3 [place]) device, 1 each continuously, Disp: 1 each, Rfl: 0 Continuous Glucose Sensor (FreeStyle Violet 3 Sensor) misc, 1 each continuously, Disp: 2 each, Rfl: 11 empagliflozin (Jardiance) 25 MG, TAKE 1 TABLET BY MOUTH EVERY DAY, Disp: 30 tablet, Rfl: 5 famotidine (Pepcid) 40 MG tablet, TAKE 1 TABLET BY MOUTH EVERY DAY, Disp: 90 tablet, Rfl: 3 fluticasone (Flonase) 50 MCG/ACT nasal spray, Administer 2 sprays into each nostril Daily Shake gently. Before first use, prime pump. After use, clean tip and replace cap., Disp: , Rfl: furosemide (Lasix) 20 MG tablet, Take 1 tablet (20 mg) by mouth Daily, Disp: 90 tablet, Rfl: 3 glucose blood ([employer] Ultra Test) test strip, 1 each by Other route Daily Use as instructed, Disp: 50 each, Rfl: 11 hydrALAZINE (Apresoline) 100 MG tablet, TAKE 1 TABLET BY MOUTH THREE TIMES A DAY, Disp: 270 tablet,Rfl: 3 HYDROcodone-acetaminophen (Bridgeton) 5-325 MG tablet, Take 1 tablet by mouth 4 (four) times a day as needed for severe pain, Disp: 90 tablet, Rfl: 0 insulin lispro (HumaLOG) 100 UNIT/ML injection, INJECT 2-10 UNITS UNDER THE SKIN IN THE MORNING AND2-10 UNITS AT NOON AND 2-10 UNITS IN THE EVENING. INJECT WITH MEALS. 151-200=2 UNITS, 201-250-4 UNITS, 251-300=6 UNITS, 301-350=8 UNITS, 351- 400=10 UNITS, OVER 400 CALL PROVIDER., Disp: 15 each, Rfl:3 isosorbide mononitrate ER (Imdur) 30 MG 24 hr tablet, TAKE 1 TABLET BY MOUTH EVERY DAY *DO NOT CRUSH OR CHEW*, Disp: 30 tablet, Rfl: 5 Lancets Micro Thin 33G misc, 1 each Daily, Disp: 50 each, Rfl: 11 metoclopramide (Reglan) 5 MG tablet, TAKE 1 TABLET BY MOUTH FOUR TIMES A DAY, Disp: 120 tablet, Rfl: 5 montelukast (Singulair) 10 MG tablet, TAKE 1 TABLET BY MOUTH EVERYDAY AT BEDTIME, Disp: 90 tablet, Rfl: 5 nitroglycerin (Nitrostat) 0.4 MG SL tablet, Place 0.4 mg under the tongue every 5 (five) minutes ifneeded., Disp: , Rfl: nystatin (Mycostatin) 190909 UNIT/GM powder, Apply 1 application topically in [...] MOUTH TWICE A DAY, Disp: 180 tablet, Rfl:3 sacubitril-valsartan (Entresto) 24-26 MG tablet, TAKE 1 TABLET BY MOUTH IN THE MORNING AND BEFORE BEDTIME, Disp: 60 tablet, Rfl: 5 sucralfate (Carafate) 1 g tablet, TAKE 1 TABLET BY MOUTH EVERYDAY AT BEDTIME, Disp: 90 tablet, Rfl:3 temazepam (Restoril) 15 MG capsule, TAKE 1 [...] 0 min Stress: Stress Concern Present (01/22/2024) [place] [employer] - Occupational Stress Questionnaire Feeling of Stress : To some extent Social Connections: Moderately Isolated (01/22/2024) Social Connection and Isolation Panel [NHANES] Frequency of Communication with Friends and Family: Three times a week Frequency of Social Gatherings with Friends and Family: Twice a week Attends Congregational Services: 1 to 4 times per year Active Member of Clubs or Organizations: No Attends Club or Organization Meetings: Never Marital Status: Intimate Partner Violence: Unknown (04/12/2023) Received from [facility] Safety & Environment Fear of Current or [...] and negative PT pedal pulses NEURO: 5.07 [place] monofilament test positive to digits and forefoot bilaterally 125Hz tuning fork positive to 1st MPJ bilaterally ORTHO: Positive pain on palpation to toenails of the left 1,2,3,4,5 toes and right 1,2,3,4,5 toes ASSESSMENT 1. Type 2 diabetes mellitus without complication, unspecified whether oysterman insulin use 2. Pain due to onychomycosis of toenails of both feet 3. Venous insufficiency PLAN Discussed proper foot care with patient today. Debride nails in length and thickness digits 1 through 10 Patient educated today on proper diabetic foot care including monitoring feet daily for any signs of infection openings in the skin or irregularities to both feet. Patient had a diabetic neurologicalexam today to both their feet and discussed proper shoe gear. Turner Wilkins DPM documented in this encounterSouthPointe [id number] History of Present illness Narrative* Amador Abdalla MD - 05/27/2024 12:15 PM EDTAssociated Problem(s): Type 2 diabetes mellitus with hyperglycemia, without long-term current use of insulin ([facility]) Medication adjusted in SNF and will check A1C next visit. * Amador Abdalla MD - 05/27/2024 12:15 PM EDTAssociated Problem(s): Medicare annual wellness visit, subsequent Reviewed labs. Discussed proper diet and regular aerobic exercise. Need to increase walking and continue PT exercises. Smaller portions and limit total calories. Tetanus every 10 years. Advised not to smoke. Discussed daily Aspirin therapy. * Amador Abdalla MD - 05/27/2024 12:14 PM EDTAssociated Problem(s): Benign essential hypertension (CMS/HCC) BP elevated today but did not take medication and usually normal. Continue to monitor PRN. * Amador Abdalla MD - 05/27/2024 11:00 AM EDT Images from the original note were not included. Subjective Patient ID: Rivka Turner is a 78 y.o. female who presents for Medicare Annual Wellness Visit Initial (WELLNESS). Presents for medicare annual wellness visit. Weight down 18 pounds in past year. Recently completedPT and trying to walk more. Performing home exercises and stretches. Tries to watch diet and eat healthy. Increased fruits and vegetables. Smaller portions and limits snacking. Tries to limit total daily calories. Recently at SNF for rehab and did well. Currently plan on going into assisted living.Strength much improved and walking better. Problems remembering to take medication and often forgets. Forgot medication this am and BP elevated. Not checking BS and on insulin. A1C in February over 10. Review of Systems Respiratory: Negative for cough, [...] Assessment/Plan Problem List Items Addressed This Visit Type 2 diabetes mellitus with hyperglycemia, without long-term current use of insulin ([facility]) Medication adjusted in SNF and will check A1C next visit. Benign essential hypertension ([facility]) BP elevated today but did not take medication and usually normal. Continue to monitor PRN. Type 2 diabetes mellitus with diabetic microalbuminuria ([facility]) Medicare annual wellness visit, subsequent - Primary Reviewed labs. Discussed proper diet and regular aerobic exercise. Need to increase walking and continue PT exercises. Smaller portions and limit total calories. Tetanus every 10 years. Advised not to smoke. Discussed daily Aspirin therapy. Other Visit Diagnoses Upper respiratory tract infection, unspecified type Relevant Medications fluticasone (Flonase) 50 MCG/ACT nasal spray documented in this encounterSouthPointe [id number] History of Present illness Narrative* Boby Earl, DO - 05/13/2024 11:59 PM EDT Patient Name: Rivka Turner Date of : 1945 Date of Service: 05/13/2024 [place] [facility] [place] of Visit: [place]illed Visit Subjective Rivka Turner is a 78 y.o. female seen today at long term facility for therapy visit. Rivka is going to be discharged later this week. Her blood pressure has been consistently high.She still has swelling in her lower legs. She denies chest pain or shortness of breath. She is using hydrocodone for pain and it is effective. She is concerned that she won't be able to get her pain medication right away when she goes home. Allergies: Patient has no allergy information on record. Code Status: FULL CODE BP 160/59 Pulse 67 Temp 36.4 C (97.5 F) Resp 16 Wt 81.7 kg (180 lb 3.2 oz) SpO2 93% BMI30.93 kg/m Physical Exam Vitals reviewed. Exam conducted with a junior underwriter present (Chris Stauffer MS 3). Constitutional: General: She is not in acute distress. Appearance: She is obese. She is not ill-appearing. Comments: In wheelchair in her room watching TV HENT: Head: Normocephalic. Eyes: Extraocular Movements: Extraocular movements intact. Conjunctiva/sclera: Conjunctivae normal. Cardiovascular: Rate and Rhythm: Normal rate and regular rhythm. Heart sounds: Normal heart sounds. No murmur heard. Pulmonary: Effort: Pulmonary effort is normal. No respiratory distress. Breath sounds: Normal breath sounds. No wheezing, rhonchi or rales. Abdominal: General: Bowel sounds are normal. Palpations: Abdomen is soft. Tenderness: There is no abdominal tenderness. Musculoskeletal: Cervical back: Neck supple. Right lower le+ Pitting Edema present. Left lower le+ Pitting Edema present. Comments: Wearing compression hose Lymphadenopathy: Cervical: No cervical adenopathy. Neurological: General: No focal deficit present. Mental Status: She is alert and oriented to person, place, and time. Gait: Gait abnormal. Psychiatric: Mood and Affect: Mood normal. Behavior: Behavior normal. Thought Content: Thought content normal. Judgment: Judgment normal. Assessment/Plan Summary / Assessment / Plan 1. Chronic diastolic congestive heart failure (CMS-HCC) 2. Essential hypertension 3. Other fracture of unspecified lumbar vertebra, subsequent encounter for fracture with routine healing 4. Generalized anxiety disorder She has improved with therapy and will be discharged later this week. She has CHF and elevated blood pressure. She is not on an TONY or ARB. She should be on Entresto so I will add that-Entresto 24-261 daily. She may take rest of medication home with her for continuation of therapy until she sees her PCP which should be within 2 weeks. Ok to discharge home with home health. All medications reviewed and are medically necessary. ELECTRONICALLY SIGNED BY: Boby Earl DO documented in this encounterHighland District Hospital03-18-2025 History of Present illness Narrative* Boby Buenrostro Mady, DO - 05/06/2024 2:41 PM EDT Patient Name: Rivka Turner Date of : 1945 Date of Service: 05/06/2024 [place] [facility] [place] of Visit: Skilled Visit Subjective Rivka Turner is a 78 y.o. female seen today at long term facility for skilled visit. Rivka is participating in therapy. It is going okay . She took her oxygen off for 5-6 hours last night and her oxygen saturation was okay and she did not feel short of breath but then when it was time for bed she worried that her oxygen my drop while sleeping and she could have a heart attack or stroke so she put it on an nighttime. They apparently are unable to weigh her because the scale is not working. She does not feel anymore swollen then her usual self. She does not have increased shortness a breath. She is using pain medication with benefit. She does not have any side effects. Allergies: Patient has no allergy information on record. Code Status: FULL CODE BP 151/76 Pulse 79 Temp 36.3 C (97.4 F) Resp 16 Ht 162.6 cm (5' 4 ) Wt 84.6 kg (186 lb 9.6 oz) SpO2 92% BMI 32.03 kg/m Physical Exam Vitals reviewed. Constitutional: General: She is not in acute distress. Appearance: She is obese. She is not ill-appearing. Comments: In wheelchair in her room watching TV while eating lunch HENT: Head: Normocephalic. Eyes: General: No scleral icterus. Extraocular Movements: Extraocular movements intact. Conjunctiva/sclera: Conjunctivae normal. Cardiovascular: Rate and Rhythm: Normal rate and regular rhythm. Heart sounds: Normal heart sounds. No murmur heard. Pulmonary: Effort: Pulmonary effort is normal. No respiratory distress. Breath sounds: Normal breath sounds. No wheezing, rhonchi or rales. Abdominal: General: Bowel sounds are normal. Palpations: Abdomen is soft. Tenderness: There is no abdominal tenderness. Musculoskeletal: Cervical back: Neck supple. Right lower le+ Pitting Edema present. Left lower le+ Pitting Edema present. Comments: Wearing compression hose Lymphadenopathy: Cervical: No cervical adenopathy. Neurological: General: No focal deficit present. Mental Status: She is alert and oriented to person, place, and time. Gait: Gait abnormal. Psychiatric: Mood and Affect: Mood normal. Behavior: Behavior normal. Thought Content: Thought content normal. Judgment: Judgment normal. Assessment/Plan Summary / Assessment / Plan 1. Chronic diastolic congestive heart failure ([facility]) 2. Other fracture of unspecified lumbar vertebra, subsequent encounter for fracture with routine healing 3. Essential hypertension 4. Type 2 diabetes mellitus with stage 3b chronic kidney disease, with long-term current use of insulin ([facility]) Medically stable. Continue current regimen. Continue oxygen for now. Maybe able to wean off. Might need a nocturnal pulse ox study to see if she needs nighttime oxygen. Continue therapy to reach maximum improvement. All medications reviewed and are medically necessary. ELECTRONICALLY SIGNED BY: Boby Earl DO documented in this encounterHighland District Hospital03-11-2025 History of Present illness Narrative* Boby Earl DO - 04/29/2024 11:59 PM EDT Patient Name: Rivka Turner Date of : 1945 Date of Service: 04/29/2024 [place] [facility] [place] of Visit: Skilled Visit Subjective Rivka Turner is a 78 y.o. female seen today at long term facility for skilled visit. Rivka complains of shortness of breath in the morning which improves as the day goes on. She isusing oxygen and her oxygen saturations have been ok. She is participating in therapy. Her pain is adequately controlled with hydrocodone. She has no other new concerns. Allergies: Patient has no allergy information on record. Code Status: FULL CODE BP 160/62 Pulse 88 Temp 36.6 C (97.8 F) Resp 16 Wt 86.6 kg (191 lb) SpO2 98% Physical Exam Vitals reviewed. Constitutional: General: She is not in acute distress. Appearance: She is obese. HENT: Head: Normocephalic. Cardiovascular: Rate and Rhythm: Regular rhythm. Pulses: Normal pulses. Heart sounds: Normal heart sounds. Pulmonary: Effort: Pulmonary effort is normal. No respiratory distress. Breath sounds: Normal breath sounds. No wheezing, rhonchi or rales. Abdominal: General: Bowel sounds are normal. Palpations: Abdomen is soft. Tenderness: There is no abdominal tenderness. Musculoskeletal: Right lower le+ Pitting Edema present. Left lower le+ Pitting Edema present. Comments: With compression hose Neurological: General: No focal deficit present. Mental Status: She is alert and oriented to person, place, and time. Summary / Assessment / Plan 1. Chronic diastolic congestive heart failure ([facility]) 2. Type 2 diabetes mellitus with stage 3b chronic kidney disease, with long-term current use of insulin ([facility]) 3. Other fracture of unspecified lumbar vertebra, subsequent encounter for fracture with routine healing 4. Generalized anxiety disorder Medically stable. Continue therapy to reach maximum improvement. Her oxygen saturations are ok when she has SOB. Monitor for now. Likely CHF but is also deconditioned. All medications reviewed and are medically necessary. ELECTRONICALLY SIGNED BY: Boby Earl DO documented in this encounterProctor HospitalSphereUp [id number] History of Present illness Narrative* Boby Earl DO - 04/25/2024 11:59 PM EST Patient Name: Rivka Turner Date of : 1945 Date of Service: 04/25/2024 [place] [facility] [place] of Visit: Admission H&P Subjective Rivka Turner is a 78 y.o. female seen today at long term facility for admission H&P. Rivka presents today for admission to [facility]. She was recently discharged from the [facility] for acute on chronic congestive heart failure. She was at a another fci previously and had to be sent out for shortness a breath. She was there for therapy following a fall at home which she fractured several lumbar vertebrae. She was not getting her Lasix at that facility and her CHF worsened. She is feeling better today. She was also diagnosed with a urinary tract infection and pneumonia and is currently on antibiotics. She has no new problems to report. She is hoping to get strong enough to go home. Her home is all on 1 level. She is using hydrocodone for pain with effectiveness. She is also using temazepam at bedtime for insomnia. She has been taking that for a while. She was also taking alprazolam for anxiety routinely. Does have history of falls. She iscurrently on oxygen. Allergies: Patient has no allergy information on record. Code Status: FULL CODE The following portions of the patient's history were reviewed and updated as appropriate: allergies, current medications, past family history, past medical history, past social history, past surgicalhistory, problem list, and medication reconciliation was completed including current medication andpost discharge medication. Review of Systems Constitutional: Negative. HENT: Negative. Eyes: Negative. Respiratory: Positive for shortness of breath. Cardiovascular: Positive for leg swelling. Gastrointestinal: Negative. Endocrine: Negative. Genitourinary: Positive for frequency. Musculoskeletal: Positive for arthralgias, back pain and gait problem. Skin: Negative. Allergic/Immunologic: Negative. Psychiatric/Behavioral: Positive for sleep disturbance. The patient is nervous/anxious. Objective BP 162/71 Pulse 72 Temp 36.5 C (97.7 F) Resp 18 Ht 162.6 cm (5' 4 ) Wt 86.6 kg (191 lb) SpO2 94% BMI 32.79 kg/m Physical Exam Vitals reviewed. Exam conducted with a junior underwriter present (Eitan Tom MS 3). Constitutional: General: She is not in acute distress. Appearance: She is obese. She is not ill-appearing. Comments: In bed watching TV HENT: Head: Normocephalic. Cardiovascular: Rate and Rhythm: Normal rate and regular rhythm. Pulses: Normal pulses. Heart sounds: Normal heart sounds. No murmur heard. Pulmonary: Effort: Pulmonary effort is normal. No respiratory distress. Breath sounds: Normal breath sounds. No wheezing, rhonchi or rales. Abdominal: General: Bowel sounds are normal. Palpations: Abdomen is soft. Tenderness: There is no abdominal tenderness. Musculoskeletal: Cervical back: Neck supple. Right lower le+ Pitting Edema present. Left lower le+ Pitting Edema present. Comments: With compression hose on Lymphadenopathy: Cervical: No cervical adenopathy. Skin: General: Skin is warm. Neurological: General: No focal deficit present. Mental Status: She is alert and oriented to person, place, and time. Psychiatric: Attention and Perception: Attention normal. Mood and Affect: Mood and affect normal. Speech: Speech normal. Behavior: Behavior normal. Behavior is cooperative. Thought Content: Thought content normal. Cognition and Memory: Cognition normal. Judgment: Judgment normal. Assessment/Plan Summary / Assessment / Plan 1. Acute combined systolic and diastolic heart failure ([facility]) 2. Other fracture of unspecified lumbar vertebra, subsequent encounter for fracture with routine healing 3. Urinary tract infection with hematuria, site unspecified 4. Pneumonia due to infectious organism, unspecified laterality, unspecified part of lung 5. Essential hypertension 6. Type 2 diabetes mellitus with stage 3b chronic kidney disease, with long-term current use of insulin [place] 7. Iron deficiency anemia, unspecified iron deficiency anemia type 8. Personal history of transient ischemic attack (TIA), and cerebral infarction without residual deficits 9. Recurrent major depressive disorder, in remission ([facility] 10. Generalized anxiety disorder 11. Weakness 12. Old myocardial infarction 13. History of falling Admit [place] [facility] [place] [facility]. Continue antibiotic, hydrocodone-APAP and temazepam along with other medications Will hold off on alprazolam due to fall risk. Full code Fair to good rehab potential. ELECTRONICALLY SIGNED BY: Boby Earl DO documented in this encounterHigh[facility] Telephone encounter Note* Telephone Encounter - Amador Abdalla MD - 03/26/2024 3:01 PM EST [facility] [id number] Miscellaneous Notes* Telephone Encounter - Amador Abdalla MD - 03/26/2024 3:01 PM EST documented in this encounterNOHawthorn Children's Psychiatric [id number] History of Present illness Narrative* Amador Abdalla MD - 02/29/2024 2:13 PM ESTAssociated Problem(s): Type 2 diabetes mellitus with hyperglycemia, without long-term current use of insulin ([facility]) Not checking BS and due for A1C. BS elevated and not controlled. Script for CGM to pharmacy. Stick to ADA diet and limit carbs. * Amador Abdalla MD - 02/29/2024 2:13 PM ESTAssociated Problem(s): Stage 3b chronic kidney disease (CKD) ([facility]) Check labs * Amador Abdalla MD - 02/29/2024 2:13 PM ESTAssociated Problem(s): Primary osteoarthritis of both knees Pain worse and check x-ray. Refer to ortho and use norco PRN. * Amador Abdalla MD - 02/29/2024 2:12 PM ESTAssociated Problem(s): Left elbow pain Pain improved and monitor. * Amador Abdalla MD - 02/29/2024 2:12 PM ESTAssociated Problem(s): Class 1 obesity due to excess calories with serious comorbidity and body mass index (BMI) of 33.0 to 33.9 in adult Weight loss indicated. * Amador Abdalla MD - 02/29/2024 2:12 PM ESTAssociated Problem(s): Chronic diastolic heart failure ([facility]) Edema stable and continue medication. Elevate legs PRN. Follow up with cardiology. * Amador Abdalla MD - 02/29/2024 2:12 PM ESTAssociated Problem(s): Benign essential hypertension (CMS/HCC) BP elevated today but did not take medication and usually normal. Continue to monitor PRN. * Amador Abdalla MD - 02/29/2024 11:30 AM EST Images from the original note were not included. Subjective Patient ID: Rivka Turner is a 78 y.o. female who presents for Follow-up ([facility] er f/up 02/23/24) and Knee Pain. [...] Problem List Items Addressed This Visit Dyslipidemia ([facility]) Relevant Orders Lipid panel Chronic diastolic heart failure ([facility]) Edema stable and continue medication. Elevate legs PRN. Follow up with cardiology. Primary osteoarthritis of both knees Pain worse and check x-ray. Refer to ortho and use norco PRN. Relevant Orders XR knee 1 or 2 views right XR knee 1 or 2 views left Ambulatory referral to Orthopaedic Surgery Stage 3b chronic kidney disease (CKD) ([facility]) Check labs Relevant Orders Basic metabolic panel Type 2 diabetes mellitus with hyperglycemia, without long-term current use of insulin ([facility]) Not checking BS and due for A1C. BS elevated and not controlled. Script for CGM to pharmacy. Stick to ADA diet and limit carbs. Relevant Medications Continuous Glucose Road Boss (Dexcom G7 Road Boss) device Continuous Glucose Sensor (Dexcom G7 Sensor) misc Other Relevant Orders Microalbumin / creatinine, urine ratio Hemoglobin A1c Benign essential hypertension ([facility]) BP elevated today but did not take [...] Pain improved and monitor. documented in this encounterSouthPointe [id number] History of Present illness Narrative* Turner Wilkins DPM - 02/07/2024 10:10 AM EST Patient: Rivka Turner : 1945 PCP: Amador Abdalla MD [...] Arachnoid cyst Bradycardia CAD (coronary artery disease) ([facility]) 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 ([facility]) Cerebrovascular disease Chronic constipation Chronic diastolic heart failure ([facility]) Chronic sinusitis, unspecified location CVA (cerebral vascular accident) ([facility]) Depression ([facility]) Diabetes ([facility]) Dyslipidemia ([facility]) Fibromyalgia SCOTTY (generalized anxiety disorder) ([facility]) GERD (gastroesophageal reflux disease) Hiatal hernia HTN (hypertension) ([facility]) Hyperkalemia Hyperlipidemia ([facility]) Insomnia, persistent Kidney disease MDD (major depressive disorder), recurrent episode, mild (HCC) ([facility]) Overflow incontinence Primary osteoarthritis of both knees Pulmonary hypertension ([facility]) Seasonal allergic rhinitis due to pollen Stage 3b chronic kidney disease (CKD) ([facility]) Type 2 diabetes mellitus with hyperglycemia, without long-term current use of insulin ([facility]) Vitamin D deficiency Medications: Current Outpatient Medications: [...] the morning and 12.5 mg in the evening.Take with meals., Disp: , Rfl: cholecalciferol (Vitamin [...] tablet before bedtime., Disp: , Rfl: HYDROcodone-acetaminophen (Bridgeton) 5-325 MG tablet, Take 1 tablet by [...] under the tongue every 5 (five) minutes ifneeded., Disp: , Rfl: nystatin (Mycostatin) 791822 UNIT/GM powder, Apply 1 application topically in [...] MOUTH TWICE A DAY, Disp: 180 tablet, Rfl:3 PARoxetine (Paxil) 40 MG tablet, TAKE 1 TABLET BY MOUTH EVERY DAY, Disp: 90 tablet, Rfl: 3 sucralfate (Carafate) 1 g tablet, TAKE 1 TABLET BY MOUTH EVERYDAY AT BEDTIME, Disp: 90 tablet, Rfl:3 temazepam (Restoril) 15 MG capsule, TAKE 1 [...] 0 min Stress: Stress Concern Present (01/22/2024) [place] [employer] - Occupational Stress Questionnaire Feeling of Stress : To some extent Social Connections: Moderately Isolated (01/22/2024) Social Connection and Isolation Panel [NHANES] Frequency of Communication with Friends and Family: Three times a week Frequency of Social Gatherings with Friends and Family: Twice a week Attends Congregational Services: 1 to 4 times per year Active Member of Clubs or Organizations: No Attends Club or Organization Meetings: Never Marital Status: Intimate Partner Violence: Unknown (04/12/2023) Received from [facility] [place] [employer] Environment Fear of Current [...] and negative PT pedal pulses NEURO: 5.07 [place] monofilament test positive to digits [...] to both feet. Patient had a diabetic neurologicalexam today to both their feet and discussed proper shoe gear. Turner Wilkins DPM documented in this encounterSouthPointe [id number] History of Present illness Narrative* Amador Abdalla MD - 11/12/2023 3:43 PM EDTAssociated Problem(s): 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 ([facility]) No symptoms and follow with cardiology. * Amador Abdalla MD - 11/12/2023 3:42 PM EDTAssociated Problem(s): Type 2 diabetes mellitus with hyperglycemia, without long-term current use of insulin ([facility]) Not checking BS and due for A1C. Stick to ADA diet and limit carbs. * Amador Abdalla MD - 11/12/2023 3:42 PM EDTAssociated Problem(s): Primary osteoarthritis of both knees Pain stable and use norco PRN. * Amador Abdalla MD - 11/12/2023 3:42 PM EDTAssociated Problem(s): Primary insomnia Sleeping well with restoril and continue. * Amador Abdalla MD - 11/12/2023 3:42 PM EDTAssociated Problem(s): Major depressive disorder, recurrent episode, mild (HCC) (CMS/HCC) Mood stable with medication and continue. * Amador Abdalla MD - 11/12/2023 3:42 PM EDTAssociated Problem(s): Generalized anxiety disorder (CMS/HCC) Symptoms stable with medication and monitor. * Amador Abdalla MD - 11/12/2023 3:42 PM EDTAssociated Problem(s): Gastroesophageal reflux disease Symptoms controlled with medication and continue. * Amador Abdalla MD - 11/12/2023 3:41 PM EDTAssociated Problem(s): Fibromyalgia Pain unchanged and use norco PRN. Try to increase activity and walk regularly. * Amador Abdalla MD - 11/12/2023 3:41 PM EDTAssociated Problem(s): Chronic diastolic heart failure (CMS/HCC) Edema stable and continue medication. Elevate legs PRN. Follow up with cardiology. * Amador Abdalla MD - 11/12/2023 3:41 PM EDTAssociated Problem(s): Benign essential hypertension (CMS/HCC) BP elevated today but patient with worsening pain and usually normal. Continue to monitor PRN. * Amador Abdalla MD - 11/12/2023 3:41 PM EDTAssociated Problem(s): Acute UTI History suggestive UTI and treat. Take bactrim for infection. Increase water intake and cranberry juice. Use motrin or tylenol for discomfort. * Amador Abdalla MD - 11/12/2023 2:15 PM EDT Images from the original note were not included. Subjective Patient ID: Rivka Turner is a 78 y.o. female who [...] sore after sit prolonged. Using norco and h elps. Depression controlled with medication. Not down or sad and feels happier. Anxiety stable. Notas stressed out or overwhelmed. Not as nervous [...] with pepcid. Denies epigastric pain or burning andnot waking up with symptoms. Concerned of UTI. [...] and use norco PRN. Relevant Medications HYDROcodone-acetaminophen (Bridgeton) 5-325 MG tablet Stage 3b chronic kidney [...] Diagnoses Skin candidiasis Relevant Medications nystatin (Mycostatin) 187040 UNIT/GM powder documented in this encounterSouthPointe [id number] Progress note Author Andrea Marinelli [facility] June 25, 2021 11:27amNote Date/TimeMay 2021 11:18[place] [address] Cardiology Progress Note Signed Patient: Rivka Turner MR#: [id number] : 1945 Acct:[id number] Age/Sex: 75 / F Adm Date: 2 Loc: Room: [address] [place] [address] Type : ADM IN Attending Dr: Rusty Amor MD Copies to: ~ Date of Service: 06/25/2021 Subjective Principal diagnosis: NSTEMI status post PCI to RCA Interval history: Ms. Turner is a 75 year old female seen in interventional cardiology consultation at request of thehospitalist for new onset chest discomfort. Patient describes [...] previous stents approximately 7 years ago in [place] details of which are unknown She really routinely follows with cardiology and saw her bell spinner 3 months ago with no symptoms Comorbidities are noted for diabetes, obesity, hyperlipidemia, chronic kidney disease and essentialhypertension Mrs. Turner is doing well today status post PCI to the RCA (CLAIMS DIRECTOR) done per Dr. Bolivar yesterday. 2 drug-eluting stents were placed in revascularization of the right coronary artery. Patient toleratedthe procedure well without difficulty or complication. The procedure was done via the right common femoralarterial approach. Overnight she has had no chest pain or other anginal symptoms. She has hadno problems with the right groin access site other than some mild soreness. She has been ambulatingand up to the chair. This is all [...] pulses present, posterior tibial pulses present and dorsalispedis present Other: Right groin access site with [...] MPV Neut % (Auto) Lymph % (Auto) Estill % (Auto) Eos % (Auto) Baso % (Auto) Neut # (Auto) Lymph # (Auto) [place] # (Auto) Eos # (Auto) Baso # [...] % (Auto) 90.9 Lymph % (Auto) 4.3 Estill % (Auto) 4.5 Eos % (Auto) 0.0 Baso % (Auto) 0.3 Neut # (Auto) 9.6 H Lymph # (Auto) 0.4 L [place] # (Auto) 0.5 Eos # (Auto) 0.0 Baso # (Auto) 0.0 Nucleated RBC % (auto) 0.0 PT INR APTT POC Glucose 322 294 POC Glucose Comment Troponin I High Sens 06/25/21 06/25/21 06/25/21 05:24 05:24 07:51 Corrected WBC Uncorrected WBC Count RBC Hgb Hct MCV MCH MCHC RDW Plt Count MPV Neut % (Auto) Lymph % (Auto) [place] % (Auto) Eos % (Auto) Baso % (Auto) Neut # (Auto) Lymph # (Auto) [place] # (Auto) Eos # (Auto) Baso # [...] days. 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 Code(s): E11.9 - Type 2 diabetes mellitus without complications Status: Acute Plan: Okay to resume oral metformin in 24 hours. Aggressive glycemic control and control of serum insulinlevels is recommended. 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 Within the construct of phase 2 monitored cardiac rehabilitation, a minimum 10% total body weight loss is strongly recommended Plan Okay for discharge to home today. Patient may follow-up with her primary bell spinner in [place] within 10 days. Again, as mentioned above, enrollment in phase2 monitored cardiac rehabilitation is strongly recommended Time spent with patient Time Spent With Patient (min): 30 Documented By: Andrea Marinelli MD 06/25/21 1116 Signed By: <Electronically signed by Andrea Marinelli MD> 06/25/21 1127 [facility] Work Phone: 1(470) 871-223105-07-2022 History of Present illness Narrative* Andreas Freitas MD - 06/25/2021 10:50 AM EDT Images from the original note were not included. EMERGENCY TRIAGE, TREAT AND TRANSPORT (ET3) DOCUMENTATION OF TELEHEALTH VISIT Date / Time: 06/23/20211929 Name: Rivka Turner : 1945 SSN: (Not on file) EMS Agency: [facility] [x] Verbal consent obtained [] [...] vomiting, fever. She does have nausea. She osappcdhk884 due to the chest pain, but the [...] by: Andreas Freitas MD documented in this [id number] Progress note Author Rsuty Amor [facility] June 24, 2021 4:36pmNote Date/TimeMay 2021 3:50[place] [address] Hospitalist Progress Note Signed Patient: Rivka Turner MR#: [id number] : 1945 Acct:[id number] Age/Sex: 75 / F Adm Date: 2 Loc: Room: [address] [place] [address] Type : ADM IN Attending Dr: Rusty [...] of care and confirmed it with the re sident/student/CORE WINDER. Patient was seen and examined at bedside following cardiac catheterization. Sheis lying down and resting comfortably. She denies any pain except at the site of her procedure. She denies any nausea orvomiting. She has no acute complaints at this [...] Mg-*D5w* IV 06/24/22 15:29 .Q24H [facility] Protocol 5 MCG/MIN Insulin Aspart 0 units 06/24/21 08:00 06/24/21 12:10 Insulin Aspart 300 Units/3 Ml Insuln.Pen SUBCUT 06/24/22 07:59 Not Given TID.WM.HS [facility] Protocol Insulin Detemir 10 units 06/24/21 22:00 Insulin Detemir 300 Units/3 Ml Insuln.Pen SUBCUT 06/24/22 21:59 QHS [facility] Lidocaine HCl 10 ml 06/24/21 [...] 10 Mg Tablet PO 06/24/22 21:59 HS BOYD Nitroglycerin 0.4 mg 06/24/21 05:27 Nitroglycerin 0.4 [...] 15 Mg Capsule PO 06/24/22 21:59 HS [facility] Ticagrelor 90 mg 06/24/21 23:00 [...] CKD ?BUN 32 and creatinine 2.05 at [place] yesterday Continue home medications. PT/OT Full code Rapid COVID-negative at [place] Documented By: Nick Carr DO, RES 06/24/21 154 7 Signed By: <Electronically signed by DO JOSE DE JESUS Carr> 06/24/21 1633 <Electronically signed by Rusty Amor MD> 06/24/21 1636 [facility] Work Phone: 1(223) 597-514905-06-2022 Consult note Author Gen Bolivar [facility] June 24, 2021 2:02pmNote Date/TimeMay 2021 12:55pm[place] [address] Cardiology Consult Note Signed Patient: Rivka Turner MR#: [id number] : 1945 Acct:[id number] Age/Sex: 75 / F Adm Date: 2 Loc: Room: [address] [place] [address] Type : ADM IN Attending Dr: Rusty Amor MD Copies to: MD Amador Winston MD W Scott Sheldon, DO~ Cardiology HPI History of Present Illness Consult Date: 06/24/21 Reason for Consult: Non-ST elevation [place] HPI: Ms. Turner is a 75 year old female seen in interventional cardiology consultation at request of thehospitalist for new onset chest discomfort. Patient describes [...] previous stents approximately 7 years ago in [place] details of which are unknown She really routinely follows with cardiology and saw her bell spinner 3 months ago with no symptoms Comorbidities are noted for diabetes, obesity, hyperlipidemia, chronic kidney disease and essentialhypertension She actually denies previous myocardial infarction, revascularization, she does admit to history ofremote stroke (details of which are unknown), fibromyalgia, [...] x10E3/uL Lymph # (Auto) 1.8 (1.00-4.8) x10E3/uL [place]ill # (Auto) 0.6 (0.0-0.8) x10E3/uL Eos # [...] Code(s): I25.10 - Atherosclerotic heart disease of teller coronary artery without angina pectoris (4) Diabetes: Code(s): E11.9 - Type 2 diabetes mellitus without complications (5) HTN (hypertension): Code(s): I10 - Essential (primary) hypertension Documented By: Gen Bolivar DO 06/24/21 1248 Signed By: <Electronically signed by Gen Bolivar DO> 06/24/21 1400 [facility] Work Phone: 1(443) 992-754905-06-[address] [facility] [facility] History and physical note Author Xander Nam [facility] June 24, 2021 6:14amNote Date/TimeMay 2021 5:14[place] [address] Hospitalist H&P Signed Patient: Rivka Turner MR#: [id number] : 1945 Acct:[id number] Age/Sex: 75 / F Adm Date: 2 Loc: Room: [address] [place] [address] Type : ADM IN Attending Dr: Xander Ortiz MD Copies to: Marlon Leon DO, RES MD Amador Rodas MD~ HPI DATE OF EXAMINATION: 06/24/21 CHIEF COMPLAINT: Chest pain HISTORY OF PRESENT ILLNESS: Rivka Turner is a 75-year-old female with a past medical history of CAD status post 2 stents (approximately 5 and 7 years ago respectively), diabetes mellitus type II, fibromyalgia, CKD [facility] that started in the afternoon while she was watching TV with associated shortness of breath. She described this pain as pressure that involved her left chest as well as left breast and axilla. She presented to the [place] emergency department and blood pressure was 160/71 with pulse of 75. EKG was unremarkable. Chest x-ray was normal. Hemoglobin 11.4. Hematocrit 36.7. Sodium 132. Potassium 5.1. Glucose 195. BUN 32. Creatinine 2.05.Initial troponin was 162.6. Subsequent troponin was 658.9. Patient does not know baseline creatinine/GFR. The patient was treated with nitroglycerin as well as heparin bolus at 60 units/kg and maintenance and 12 units/kg/h. She was transferred to [facility] cardiac care for NSTEMI. The patient denied fever/chills, N/V, constipation/diarrhea. She does have history of chronic headaches however notes worsening of headache since yesterday. She does take Lasix as well with as needed for pedal edema. On evaluation at [facility], patient continues to endorse resting chest pain however diminished since initial presentation at [place]. Per RN she was saturating 94% on roomair however requested to be put on 2 [...] or gallops. Tenderness to palpation of left chestwall and axilla. Lungs: Normal respiratory effort. Clear [...] yesterday afternoon. ?Chest x-ray unremarkable ?EKG at [place] normal sinus rhythm with no acute ischemia ?At [place] troponin 162.6 with repeat 658.9. Repeat at [facility] ordered. ?Patient received bolus porcine heparin at 60 units/kg at [place] with maintenance at 12 units/kg/h. Maintenance will be continued here. ?Coreg initiated at 12.5 mg twice daily. We will hold amlodipine pending cardiology recommendation. ?Continue losartan. ? Hold amlodipine and lasix pending cardiology consult. ?Cardiology consult ?Morphine for severe pain. Target pulse ox greater than 90%. Nitro for worsening chest pain. Received 324 mg aspirin at [place]. 2. Coronary artery disease ?Status post 2 stents 5 and 7 years ago respectively per patient ?Continue atorvastatin 40 mg and 81 mg aspirin 3. Diabetes ?Hold home metformin and glipizide ?Initiate basal detemir 10 units with sliding scale coverage 4. CKD ?BUN 32 and creatinine 2.05 at [place] yesterday Continue home medications. 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 Documented By: Marlon Leon DO, RES 06/24/21 050 4 Signed By: <Electronically signed by DO JOSE DE JESUS Leon> 06/24/21 0537 <Electronically signed by Xander Ortiz MD> 06/24/21 0614 [facility] Work Phone: Discharge summary Author Rusty Amor [facility] June 25, 2021 1:30pmNote Date/TimeMay 2021 1:30pm[place] [address] Discharge Summary Signed Patient: Rivka Turner MR#: [id number] : 1945 Acct:[id number] Age/Sex: 75 / F Adm Date: 2 Loc: Room: [address] [place] [address]: Rusty Amor MD Copies to: [...] She presented to the emergency department of [facility] on June 24, complaining of chest discomfort. Her troponins were abnormal. She was transferred to our hospital witha diagnosis of non-STEMI. She was taken to the [facility] on June 25, where she underwent coronary angiogram, indicating proximalRCA stent and chronic occlusion in the mid [...] W Domingo Bolivar DO s CL PCI CLAIMS DIRECTOR 1st Vessel RCA BAMBI - W Domingo [...] 3.55 L, Hgb 11.1 L, Hct 32.7 L,MCV 92.1, MCH 31.3, MCHC 34.0, RDW 12.7, Plt Count 205, MPV 9.0, Neut % (Auto) 90.9, Lymph % (Auto)4.3, Estill % (Auto) 4.5, Eos % (Auto) 0.0, Baso % (Auto) 0.3, Neut # (Auto) 9.6 H, Lymph # (Auto) 0.4 L, Estill # (Auto)0.5, Eos # (Auto) 0.0, Baso # (Auto) 0.0, Nucleated RBC % (auto) 0.0 06/24/21 22:09: POC Glucose 294 06/24/21 17:13: POC Glucose 322 Exam Physical Exam Vital Signs: Temp Pulse Resp BP Pulse Ox 98.1 F 64 18 127/72 96 06/25/21 12:15 05/07/22 12:15 06/25/21 12:15 06/25/21 12:15 06/25/21 12:15 [...] stent occurs in the first 2-3 weeks afterimplantation, you will need to take anticoagulants for at least 12-18 months. ANTICOAGULATION MEDICATION Aspirin 81mg once a day, Ticagrelor (Brilinta) 90mg twice a day STATIN MEDICATION Atorvastatin (Lipitor) 80 mg Drug-Eluting Stent (BAMBI) DO NOT discontinue Brilinta/Aspirin during the first few months regardless of what you are advised by your family doctor or pharmacist, without first calling the bell spinner who implanted the stent. If you require [...] weight lifting, stair steppers, etc. until the bell spinner approves these activities. Check with the bell spinner on your first follow-up visit. CALL YOUR PHYSICIAN at [phone]: -If bleeding should occur from the catheter insertion site- apply pressure to the site then immediately call us. -Report any fever, redness, drainage, increased swelling, or firmness at the catheter insertion site. Some bruising or slight swelling may be present at thetime of discharge. -Should arm or leg become cold, numb, white, or blue, contact the bell spinner immediately. -IF you should experience episodes of angina, e.g. chest discomfort, heaviness, tightness, pressureburning with or without radiation to the neck, jaw, arms or back- use 1 Nitrostat tablet under yourtongue every 5-10 minutes and up to three tablets. IF NO RELIEF, CALL 911 or GO TO THE NEAREST EMERGENCY ROOM. -Please notify our office if you have recurrent angina. -[Cardiac Rehab Education Provided. Participation in the Cardiopulmonary Rehabilitation program is recommended. Please call Central Scheduling at [phone] to schedule your appointment.] The attending bell spinner or [facility] nurse clinician should provide you with specific instructions regarding activity, diet, medications, and further follow up for you. Follow the medication instructions provided on your discharge. If the dosages and instructions on this sheet differ from the dosage and instructions on the bottle, follow the instructions on the bottle. [facility] is not responsible for incorrect prescription [...] Primary Care Provider in 3-5 days. 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 ) Documented By: Rusty Amor MD 06/25/21 1326 Signed By: <Electronically signed by Rusty Amor MD> 06/25/21 1330 [facility] Work Phone: Evaluation note* Diagnosis Chest pain, unspecified type- Primary PND (paroxysmal nocturnal dyspnea) Other dyspnea and respiratory abnormality [facility] Diagnosis Onset Date Resolution Status CAD (coronary artery disease) acuteChronic kidney diseaseacuteDepressionacuteDiabetesacuteFibromyalgiaacute GERD (gastroesophageal reflux disease)acuteHTN (hypertension)acuteNSTEMI (non-ST elevated myocardial infarction)acute [facility] Work Phone: Evaluation note* Diagnosis Type 2 diabetes mellitus with hyperglycemia, without long-term current use of insulin ([facility])- Primary Benign essential hypertension ([facility]/HCC) Essential hypertension, benign Primary osteoarthritis of both knees Fibromyalgia Unspecified myalgia and myositis Major depressive disorder, recurrent episode, mild (HCC) ([facility]) Major depressive disorder, recurrent episode, mild Generalized anxiety disorder ([facility]/HCC) Generalized anxiety disorder Chronic diastolic heart failure ([facility]) Chronic diastolic heart failure Gastroesophageal reflux disease without esophagitis Esophageal reflux Encounter for long-term (current) use of medications Encounter for long-term (current) use of other medications Dyslipidemia ([facility]) Other and unspecified hyperlipidemia Vitamin D deficiency Type 2 diabetes mellitus with hyperglycemia, without long-term current use of insulin ([facility])- Primary Benign essential hypertension ([facility]/HCC) Essential hypertension, benign Chronic diastolic heart failure ([facility]/HCC) Chronic diastolic heart failure Major depressive disorder, recurrent episode, mild (HCC) ([facility]) Major depressive disorder, recurrent episode, mild Generalized anxiety disorder ([facility]) Generalized anxiety disorder Fibromyalgia Unspecified myalgia and myositis Gastroesophageal reflux disease without esophagitis Esophageal reflux Primary insomnia Persistent disorder of initiating or maintaining sleep Primary osteoarthritis of both knees Stage 3b chronic kidney disease (CKD) ([facility]) Dyslipidemia ([facility]) Other and unspecified hyperlipidemia Encounter for long-term (current) use of medications Encounter for long-term (current) use of other medications Obesity (BMI 30-39.9) Acute UTI Urinary tract infection, site not specified Skin candidiasis Candidiasis of skin and nails 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 ([facility]) Type 2 diabetes mellitus with diabetic chronic kidney disease ([facility]) Primary insomnia Persistent disorder of initiating or maintaining sleep documented in this encounter [facility]* Diagnosis Type 2 diabetes mellitus with hyperglycemia, without long-term current use of insulin ([facility])- Primary Benign essential hypertension ([facility]/HCC) Essential hypertension, benign Primary osteoarthritis of both knees Fibromyalgia Unspecified myalgia and myositis Major depressive disorder, recurrent episode, mild (HCC) ([facility]) Major depressive disorder, recurrent episode, mild Generalized anxiety disorder ([facility]) Generalized anxiety disorder Chronic diastolic heart failure ([facility]) Chronic diastolic heart failure Gastroesophageal reflux disease without esophagitis Esophageal reflux Encounter for long-term (current) use of medications Encounter for long-term (current) use of other medications Dyslipidemia ([facility]) Other and unspecified hyperlipidemia Vitamin D deficiency Type 2 diabetes mellitus with hyperglycemia, without long-term current use of insulin ([facility])- Primary Benign essential hypertension ([facility]) Essential hypertension, benign Chronic diastolic heart failure ([facility]) Chronic diastolic heart failure Major depressive disorder, recurrent episode, mild (HCC) ([facility]) Major depressive disorder, recurrent episode, mild Generalized anxiety disorder ([facility]) Generalized anxiety disorder Fibromyalgia Unspecified myalgia and myositis Gastroesophageal reflux disease without esophagitis Esophageal reflux Primary insomnia Persistent disorder of initiating or maintaining sleep Primary osteoarthritis of both knees Stage 3b chronic kidney disease (CKD) ([facility]) Dyslipidemia ([facility]) Other and unspecified hyperlipidemia Encounter for long-term (current) use of medications Encounter for long-term (current) use of other medications Obesity (BMI 30-39.9) Acute UTI Urinary tract infection, site not specified Skin candidiasis Candidiasis of skin and nails 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 ([facility]) Type 2 diabetes mellitus with diabetic chronic kidney disease ([facility]) Primary osteoarthritis of both knees documented in this encounter [facility]* Diagnosis Type 2 diabetes mellitus with hyperglycemia, without long-term current use of insulin ([facility])- Primary Benign essential hypertension ([facility]) Essential hypertension, benign Chronic diastolic heart failure ([facility]) Chronic diastolic heart failure Major depressive disorder, recurrent episode, mild (HCC) ([facility]) Major depressive disorder, recurrent episode, mild Generalized anxiety disorder ([facility]) Generalized anxiety disorder Fibromyalgia Unspecified myalgia and myositis Gastroesophageal reflux disease without esophagitis Esophageal reflux Primary insomnia Persistent disorder of initiating or maintaining sleep Primary osteoarthritis of both knees Stage 3b chronic kidney disease (CKD) ([facility]) Dyslipidemia ([facility]) Other and unspecified hyperlipidemia Encounter for long-term (current) use of medications Encounter for long-term (current) use of other medications Obesity (BMI 30-39.9) Acute UTI Urinary tract infection, site not specified Skin candidiasis Candidiasis of skin and nails 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 ([facility]) Type 2 diabetes mellitus with diabetic chronic kidney disease ([facility]) documented in this encounter [facility]* Diagnosis Type 2 diabetes mellitus with hyperglycemia, without long-term current use of insulin ([facility])- Primary Benign essential hypertension ([facility]) Essential hypertension, benign Primary osteoarthritis of both knees Fibromyalgia Unspecified myalgia and myositis Major depressive disorder, recurrent episode, mild (HCC) ([facility]) Major depressive disorder, recurrent episode, mild Generalized anxiety disorder ([facility] Generalized anxiety disorder Chronic diastolic heart failure ([facility] Chronic diastolic heart failure Gastroesophageal reflux disease without esophagitis Esophageal reflux Encounter for long-term (current) use of medications Encounter for long-term (current) use of other medications Dyslipidemia ([facility]) Other and unspecified hyperlipidemia Vitamin D deficiency Type 2 diabetes mellitus with hyperglycemia, without long-term current use of insulin ([facility])- Primary Benign essential hypertension ([facility]) Essential hypertension, benign Chronic diastolic heart failure ([facility]) Chronic diastolic heart failure Major depressive disorder, recurrent episode, mild (HCC) ([facility]) Major depressive disorder, recurrent episode, mild Generalized anxiety disorder ([facility]) Generalized anxiety disorder Fibromyalgia Unspecified myalgia and myositis Gastroesophageal reflux disease without esophagitis Esophageal reflux Primary insomnia Persistent disorder of initiating or maintaining sleep Primary osteoarthritis of both knees Stage 3b chronic kidney disease (CKD) ([facility]) Dyslipidemia ([facility]) Other and unspecified hyperlipidemia Encounter for long-term (current) use of medications Encounter for long-term (current) use of other medications Obesity (BMI 30-39.9) Acute UTI Urinary tract infection, site not specified Skin candidiasis Candidiasis of skin and nails 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 ([facility]) Type 2 diabetes mellitus with diabetic chronic kidney disease ([facility]) Type 2 diabetes mellitus without complication, unspecified whether oysterman insulin use ([facility])- Primary Pain due to onychomycosis of toenails of both feet Venous insufficiency Unspecified venous (peripheral) insufficiency documented in this encounter [facility]* Diagnosis Type 2 diabetes mellitus with hyperglycemia, without long-term current use of insulin ([facility])- Primary Benign essential hypertension ([facility]) Essential hypertension, benign Primary osteoarthritis of both knees Fibromyalgia Unspecified myalgia and myositis Major depressive disorder, recurrent episode, mild (HCC) ([facility]) Major depressive disorder, recurrent episode, mild Generalized anxiety disorder ([facility] Generalized anxiety disorder Chronic diastolic heart failure ([facility] Chronic diastolic heart failure Gastroesophageal reflux disease without esophagitis Esophageal reflux Encounter for long-term (current) use of medications Encounter for long-term (current) use of other medications Dyslipidemia ([facility]) Other and unspecified hyperlipidemia Vitamin D deficiency Type 2 diabetes mellitus with hyperglycemia, without long-term current use of insulin ([facility])- Primary Benign essential hypertension ([facility]) Essential hypertension, benign Chronic diastolic heart failure ([facility]) Chronic diastolic heart failure Major depressive disorder, recurrent episode, mild (HCC) ([facility]) Major depressive disorder, recurrent episode, mild Generalized anxiety disorder ([facility]) Generalized anxiety disorder Fibromyalgia Unspecified myalgia and myositis Gastroesophageal reflux disease without esophagitis Esophageal reflux Primary insomnia Persistent disorder of initiating or maintaining sleep Primary osteoarthritis of both knees Stage 3b chronic kidney disease (CKD) ([facility]) Dyslipidemia ([facility]) Other and unspecified hyperlipidemia Encounter for long-term (current) use of medications Encounter for long-term (current) use of other medications Obesity (BMI 30-39.9) Acute UTI Urinary tract infection, site not specified Skin candidiasis Candidiasis of skin and nails 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 ([facility]) Type 2 diabetes mellitus with diabetic chronic kidney disease ([facility]) Primary osteoarthritis of both knees documented in this encounter [facility]* Diagnosis Type 2 diabetes mellitus with hyperglycemia, without long-term current use of insulin ([facility])- Primary Benign essential hypertension ([facility]) Essential hypertension, benign Primary osteoarthritis of both knees Fibromyalgia Unspecified myalgia and myositis Major depressive disorder, recurrent episode, mild (HCC) ([facility]) Major depressive disorder, recurrent episode, mild Generalized anxiety disorder ([facility] Generalized anxiety disorder Chronic diastolic heart failure ([facility] Chronic diastolic heart failure Gastroesophageal reflux disease without esophagitis Esophageal reflux Encounter for long-term (current) use of medications Encounter for long-term (current) use of other medications Dyslipidemia ([facility]) Other and unspecified hyperlipidemia Vitamin D deficiency Type 2 diabetes mellitus with hyperglycemia, without long-term current use of insulin ([facility])- Primary Benign essential hypertension ([facility]) Essential hypertension, benign Chronic diastolic heart failure ([facility]) Chronic diastolic heart failure Major depressive disorder, recurrent episode, mild (HCC) ([facility]) Major depressive disorder, recurrent episode, mild Generalized anxiety disorder ([facility]) Generalized anxiety disorder Fibromyalgia Unspecified myalgia and myositis Gastroesophageal reflux disease without esophagitis Esophageal reflux Primary insomnia Persistent disorder of initiating or maintaining sleep Primary osteoarthritis of both knees Stage 3b chronic kidney disease (CKD) ([facility]) Dyslipidemia ([facility]) Other and unspecified hyperlipidemia Encounter for long-term (current) use of medications Encounter for long-term (current) use of other medications Obesity (BMI 30-39.9) Acute UTI Urinary tract infection, site not specified Skin candidiasis Candidiasis of skin and nails 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 ([facility]) Type 2 diabetes mellitus with diabetic chronic kidney disease ([facility]) Left elbow pain- Primary Pain in joint, upper arm Type 2 diabetes mellitus with hyperglycemia, without long-term current use of insulin ([facility]) Benign essential hypertension ([facility]) Essential hypertension, benign Chronic diastolic heart failure ([facility]) Chronic diastolic heart failure Encounter for long-term (current) use of medications Encounter for long-term (current) use of other medications Primary osteoarthritis of both knees Stage 3b chronic kidney disease (CKD) ([facility]) Dyslipidemia ([facility]) Other and unspecified hyperlipidemia Class 1 obesity due to excess calories with serious comorbidity and body mass index (BMI) of 33.0 to 33.9 in adult Type 2 diabetes mellitus with diabetic chronic kidney disease ([facility]) documented in this encounter [facility]* Diagnosis Type 2 diabetes mellitus with hyperglycemia, without long-term current use of insulin ([facility])- Primary Benign essential hypertension ([facility]) Essential hypertension, benign Primary osteoarthritis of both knees Fibromyalgia Unspecified myalgia and myositis Major depressive disorder, recurrent episode, mild (HCC) ([facility]) Major depressive disorder, recurrent episode, mild Generalized anxiety disorder ([facility] Generalized anxiety disorder Chronic diastolic heart failure ([facility]) Chronic diastolic heart failure Gastroesophageal reflux disease without esophagitis Esophageal reflux Encounter for long-term (current) use of medications Encounter for long-term (current) use of other medications Dyslipidemia ([facility]) Other and unspecified hyperlipidemia Vitamin D deficiency Type 2 diabetes mellitus with hyperglycemia, without long-term current use of insulin ([facility])- Primary Benign essential hypertension ([facility]) Essential hypertension, benign Chronic diastolic heart failure ([facility]) Chronic diastolic heart failure Major depressive disorder, recurrent episode, mild (HCC) ([facility]) Major depressive disorder, recurrent episode, mild Generalized anxiety disorder ([facility]) Generalized anxiety disorder Fibromyalgia Unspecified myalgia and myositis Gastroesophageal reflux disease without esophagitis Esophageal reflux Primary insomnia Persistent disorder of initiating or maintaining sleep Primary osteoarthritis of both knees Stage 3b chronic kidney disease (CKD) ([facility]) Dyslipidemia ([facility]) Other and unspecified hyperlipidemia Encounter for long-term (current) use of medications Encounter for long-term (current) use of other medications Obesity (BMI 30-39.9) Acute UTI Urinary tract infection, site not specified Skin candidiasis Candidiasis of skin and nails 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 ([facility]) Type 2 diabetes mellitus with diabetic chronic kidney disease ([facility]) Left elbow pain- Primary Pain in joint, upper arm Type 2 diabetes mellitus with hyperglycemia, without long-term current use of insulin ([facility]) Benign essential hypertension ([facility]) Essential hypertension, benign Chronic diastolic heart failure ([facility]) Chronic diastolic heart failure Encounter for long-term (current) use of medications Encounter for long-term (current) use of other medications Primary osteoarthritis of both knees Stage 3b chronic kidney disease (CKD) ([facility]) Dyslipidemia ([facility]) Other and unspecified hyperlipidemia Class 1 obesity due to excess calories with serious comorbidity and body mass index (BMI) of 33.0 to 33.9 in adult Type 2 diabetes mellitus with diabetic chronic kidney disease ([facility]) Primary insomnia Persistent disorder of initiating or maintaining sleep documented in this encounter [facility] HealthcareEvaluation [facility]* Diagnosis Chronic diastolic congestive heart failure ([facility])- Primary Other fracture of unspecified lumbar vertebra, subsequent encounter for fracture with routine healing Essential hypertension Unspecified essential hypertension Type 2 diabetes mellitus with stage 3b chronic kidney disease, with long-term current use of insulin [place] [facility] in this encounter [facility]* Diagnosis Chronic diastolic congestive heart failure ([facility])- Primary Type 2 diabetes mellitus with stage 3b chronic kidney disease, with long-term current use of insulin [place] Other fracture of unspecified lumbar vertebra, subsequent encounter for fracture with routine healing Generalized anxiety disorder documented in this encounter [facility]* Diagnosis Acute combined systolic and diastolic heart failure ([facility])- Primary Acute combined systolic and diastolic heart failure Other fracture of unspecified lumbar vertebra, subsequent encounter for fracture with routine healing Urinary tract infection with hematuria, site unspecified Pneumonia due to infectious organism, unspecified laterality, unspecified part of lung Essential hypertension Unspecified essential hypertension Type 2 diabetes mellitus with stage 3b chronic kidney disease, with long-term current use of insulin [place] Iron deficiency anemia, unspecified iron deficiency anemia type Personal history of transient ischemic attack (TIA), and cerebral infarction without residual deficits Recurrent major depressive disorder, in remission Generalized anxiety disorder Weakness Other malaise and fatigue Old myocardial infarction History of falling documented in this encounter [facility]* Diagnosis Chronic diastolic congestive heart failure ([facility])- Primary Essential hypertension Unspecified essential hypertension Other fracture of unspecified lumbar vertebra, subsequent encounter for fracture with routine healing Generalized anxiety disorder documented in this encounter [facility]* Diagnosis Type 2 diabetes mellitus with hyperglycemia, without long-term current use of insulin ([facility])- Primary Benign essential hypertension ([facility]) Essential hypertension, benign Primary osteoarthritis of both knees Fibromyalgia Unspecified myalgia and myositis Major depressive disorder, recurrent episode, mild (HCC) ([facility]) Major depressive disorder, recurrent episode, mild Generalized anxiety disorder ([facility] Generalized anxiety disorder Chronic diastolic heart failure ([facility]) Chronic diastolic heart failure Gastroesophageal reflux disease without esophagitis Esophageal reflux Encounter for long-term (current) use of medications Encounter for long-term (current) use of other medications Dyslipidemia ([facility]) Other and unspecified hyperlipidemia Vitamin D deficiency Type 2 diabetes mellitus with hyperglycemia, without long-term current use of insulin ([facility])- Primary Benign essential hypertension ([facility]) Essential hypertension, benign Chronic diastolic heart failure ([facility]) Chronic diastolic heart failure Major depressive disorder, recurrent episode, mild (HCC) ([facility]) Major depressive disorder, recurrent episode, mild Generalized anxiety disorder ([facility]) Generalized anxiety disorder Fibromyalgia Unspecified myalgia and myositis Gastroesophageal reflux disease without esophagitis Esophageal reflux Primary insomnia Persistent disorder of initiating or maintaining sleep Primary osteoarthritis of both knees Stage 3b chronic kidney disease (CKD) ([facility]) Dyslipidemia ([facility]) Other and unspecified hyperlipidemia Encounter for long-term (current) use of medications Encounter for long-term (current) use of other medications Obesity (BMI 30-39.9) Acute UTI Urinary tract infection, site not specified Skin candidiasis Candidiasis of skin and nails 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 ([facility]) Type 2 diabetes mellitus with diabetic chronic kidney disease ([facility]) Left elbow pain- Primary Pain in joint, upper arm Type 2 diabetes mellitus with hyperglycemia, without long-term current use of insulin ([facility]) Benign essential hypertension ([facility]) Essential hypertension, benign Chronic diastolic heart failure ([facility]) Chronic diastolic heart failure Encounter for long-term (current) use of medications Encounter for long-term (current) use of other medications Primary osteoarthritis of both knees Stage 3b chronic kidney disease (CKD) ([facility] Dyslipidemia ([facility]) Other and unspecified hyperlipidemia Class 1 obesity due to excess calories with serious comorbidity and body mass index (BMI) of 33.0 to 33.9 in adult Type 2 diabetes mellitus with diabetic chronic kidney disease ([facility]) Medicare annual wellness visit, subsequent- Primary Upper respiratory tract infection, unspecified type Benign essential hypertension ([facility]) Essential hypertension, benign Type 2 diabetes mellitus with hyperglycemia, without long-term current use of insulin ([facility]) documented in this encounter [facility] HealthcareEvaluation note* Diagnosis Type 2 diabetes mellitus with hyperglycemia, without long-term current use of insulin ([facility])- Primary Benign essential hypertension ([facility]) Essential hypertension, benign Primary osteoarthritis of both knees Fibromyalgia Unspecified myalgia and myositis Major depressive disorder, recurrent episode, mild (HCC) ([facility]) Major depressive disorder, recurrent episode, mild Generalized anxiety disorder ([facility] Generalized anxiety disorder Chronic diastolic heart failure ([facility] Chronic diastolic heart failure Gastroesophageal reflux disease without esophagitis Esophageal reflux Encounter for long-term (current) use of medications Encounter for long-term (current) use of other medications Dyslipidemia ([facility]) Other and unspecified hyperlipidemia Vitamin D deficiency Type 2 diabetes mellitus with hyperglycemia, without long-term current use of insulin ([facility])- Primary Benign essential hypertension ([facility]) Essential hypertension, benign Chronic diastolic heart failure ([facility]) Chronic diastolic heart failure Major depressive disorder, recurrent episode, mild (HCC) ([facility]) Major depressive disorder, recurrent episode, mild Generalized anxiety disorder ([facility]) Generalized anxiety disorder Fibromyalgia Unspecified myalgia and myositis Gastroesophageal reflux disease without esophagitis Esophageal reflux Primary insomnia Persistent disorder of initiating or maintaining sleep Primary osteoarthritis of both knees Stage 3b chronic kidney disease (CKD) ([facility]) Dyslipidemia ([facility]) Other and unspecified hyperlipidemia Encounter for long-term (current) use of medications Encounter for long-term (current) use of other medications Obesity (BMI 30-39.9) Acute UTI Urinary tract infection, site not specified Skin candidiasis Candidiasis of skin and nails 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 ([facility]) Type 2 diabetes mellitus with diabetic chronic kidney disease ([facility]) Left elbow pain- Primary Pain in joint, upper arm Type 2 diabetes mellitus with hyperglycemia, without long-term current use of insulin ([facility]) Benign essential hypertension ([facility]) Essential hypertension, benign Chronic diastolic heart failure ([facility]) Chronic diastolic heart failure Encounter for long-term (current) use of medications Encounter for long-term (current) use of other medications Primary osteoarthritis of both knees Stage 3b chronic kidney disease (CKD) ([facility] Dyslipidemia ([facility]) Other and unspecified hyperlipidemia Class 1 obesity due to excess calories with serious comorbidity and body mass index (BMI) of 33.0 to 33.9 in adult Type 2 diabetes mellitus with diabetic chronic kidney disease ([facility]) Medicare annual wellness visit, subsequent- Primary Upper respiratory tract infection, unspecified type Benign essential hypertension ([facility]) Essential hypertension, benign Type 2 diabetes mellitus with hyperglycemia, without long-term current use of insulin ([facility]) Type 2 diabetes mellitus with hyperglycemia, without long-term current use of insulin ([facility])- Primary documented in this encounter [facility] HealthcareEvaluation note* Diagnosis Type 2 diabetes mellitus with hyperglycemia, without long-term current use of insulin ([facility])- Primary Benign essential hypertension ([facility]) Essential hypertension, benign Primary osteoarthritis of both knees Fibromyalgia Unspecified myalgia and myositis Major depressive disorder, recurrent episode, mild (HCC) ([facility]) Major depressive disorder, recurrent episode, mild Generalized anxiety disorder ([facility] Generalized anxiety disorder Chronic diastolic heart failure ([facility] Chronic diastolic heart failure Gastroesophageal reflux disease without esophagitis Esophageal reflux Encounter for long-term (current) use of medications Encounter for long-term (current) use of other medications Dyslipidemia ([facility]) Other and unspecified hyperlipidemia Vitamin D deficiency Type 2 diabetes mellitus with hyperglycemia, without long-term current use of insulin ([facility])- Primary Benign essential hypertension ([facility]) Essential hypertension, benign Chronic diastolic heart failure ([facility]) Chronic diastolic heart failure Major depressive disorder, recurrent episode, mild (HCC) ([facility]) Major depressive disorder, recurrent episode, mild Generalized anxiety disorder ([facility]) Generalized anxiety disorder Fibromyalgia Unspecified myalgia and myositis Gastroesophageal reflux disease without esophagitis Esophageal reflux Primary insomnia Persistent disorder of initiating or maintaining sleep Primary osteoarthritis of both knees Stage 3b chronic kidney disease (CKD) ([facility]) Dyslipidemia ([facility]) Other and unspecified hyperlipidemia Encounter for long-term (current) use of medications Encounter for long-term (current) use of other medications Obesity (BMI 30-39.9) Acute UTI Urinary tract infection, site not specified Skin candidiasis Candidiasis of skin and nails 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 ([facility]) Type 2 diabetes mellitus with diabetic chronic kidney disease ([facility]) Left elbow pain- Primary Pain in joint, upper arm Type 2 diabetes mellitus with hyperglycemia, without long-term current use of insulin ([facility]) Benign essential hypertension ([facility]) Essential hypertension, benign Chronic diastolic heart failure ([facility]) Chronic diastolic heart failure Encounter for long-term (current) use of medications Encounter for long-term (current) use of other medications Primary osteoarthritis of both knees Stage 3b chronic kidney disease (CKD) ([facility] Dyslipidemia ([facility]) Other and unspecified hyperlipidemia Class 1 obesity due to excess calories with serious comorbidity and body mass index (BMI) of 33.0 to 33.9 in adult Type 2 diabetes mellitus with diabetic chronic kidney disease ([facility]) Medicare annual wellness visit, subsequent- Primary Upper respiratory tract infection, unspecified type Benign essential hypertension ([facility]) Essential hypertension, benign Type 2 diabetes mellitus with hyperglycemia, without long-term current use of insulin ([facility]) Type 2 diabetes mellitus with hyperglycemia, without long-term current use of insulin ([facility]) Chronic diastolic heart failure ([facility]) Chronic diastolic heart failure documented in this encounter [facility] HealthcareEvaluation note* Diagnosis Type 2 diabetes mellitus with hyperglycemia, without long-term current use of insulin ([facility])- Primary Benign essential hypertension ([facility]) Essential hypertension, benign Primary osteoarthritis of both knees Fibromyalgia Unspecified myalgia and myositis Major depressive disorder, recurrent episode, mild (HCC) ([facility]) Major depressive disorder, recurrent episode, mild Generalized anxiety disorder ([facility] Generalized anxiety disorder Chronic diastolic heart failure ([facility] Chronic diastolic heart failure Gastroesophageal reflux disease without esophagitis Esophageal reflux Encounter for long-term (current) use of medications Encounter for long-term (current) use of other medications Dyslipidemia ([facility]) Other and unspecified hyperlipidemia Vitamin D deficiency Type 2 diabetes mellitus with hyperglycemia, without long-term current use of insulin ([facility] [place] Primary Benign essential hypertension ([facility]) Essential hypertension, benign Chronic diastolic heart failure ([facility]) Chronic diastolic heart failure Major depressive disorder, recurrent episode, mild (HCC) ([facility]) Major depressive disorder, recurrent episode, mild Generalized anxiety disorder ([facility]) Generalized anxiety disorder Fibromyalgia Unspecified myalgia and myositis Gastroesophageal reflux disease without esophagitis Esophageal reflux Primary insomnia Persistent disorder of initiating or maintaining sleep Primary osteoarthritis of both knees Stage 3b chronic kidney disease (CKD) ([facility]) Dyslipidemia ([facility]) Other and unspecified hyperlipidemia Encounter for long-term (current) use of medications Encounter for long-term (current) use of other medications Obesity (BMI 30-39.9) Acute UTI Urinary tract infection, site not specified Skin candidiasis Candidiasis of skin and nails 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 ([facility]) Type 2 diabetes mellitus with diabetic chronic kidney disease ([facility]) Left elbow pain- Primary Pain in joint, upper arm Type 2 diabetes mellitus with hyperglycemia, without long-term current use of insulin ([facility]) Benign essential hypertension ([facility]) Essential hypertension, benign Chronic diastolic heart failure ([facility]) Chronic diastolic heart failure Encounter for long-term (current) use of medications Encounter for long-term (current) use of other medications Primary osteoarthritis of both knees Stage 3b chronic kidney disease (CKD) ([facility]) Dyslipidemia ([facility]) Other and unspecified hyperlipidemia Class 1 obesity due to excess calories with serious comorbidity and body mass index (BMI) of 33.0 to 33.9 in adult Type 2 diabetes mellitus with diabetic chronic kidney disease ([facility]) Medicare annual wellness visit, subsequent- Primary Upper respiratory tract infection, unspecified type Benign essential hypertension ([facility]) Essential hypertension, benign Type 2 diabetes mellitus with hyperglycemia, without long-term current use of insulin ([facility]) Primary osteoarthritis of both knees documented in this encounter [facility] HealthcareEvaluation [facility]* Diagnosis Type 2 diabetes mellitus with hyperglycemia, without long-term current use of insulin ([facility])- Primary Benign essential hypertension ([facility]) Essential hypertension, benign Primary osteoarthritis of both knees Fibromyalgia Unspecified myalgia and myositis Major depressive disorder, recurrent episode, mild (HCC) ([facility]) Major depressive disorder, recurrent episode, mild Generalized anxiety disorder ([facility]) Generalized anxiety disorder Chronic diastolic heart failure ([facility]) Chronic diastolic heart failure Gastroesophageal reflux disease without esophagitis Esophageal reflux Encounter for long-term (current) use of medications Encounter for long-term (current) use of other medications Dyslipidemia ([facility]) Other and unspecified hyperlipidemia Vitamin D deficiency Type 2 diabetes mellitus with hyperglycemia, without long-term current use of insulin ([facility])- Primary Benign essential hypertension ([facility]) Essential hypertension, benign Chronic diastolic heart failure ([facility]) Chronic diastolic heart failure Major depressive disorder, recurrent episode, mild (HCC) ([facility]) Major depressive disorder, recurrent episode, mild Generalized anxiety disorder ([facility]) Generalized anxiety disorder Fibromyalgia Unspecified myalgia and myositis Gastroesophageal reflux disease without esophagitis Esophageal reflux Primary insomnia Persistent disorder of initiating or maintaining sleep Primary osteoarthritis of both knees Stage 3b chronic kidney disease (CKD) ([facility]) Dyslipidemia ([facility]) Other and unspecified hyperlipidemia Encounter for long-term (current) use of medications Encounter for long-term (current) use of other medications Obesity (BMI 30-39.9) Acute UTI Urinary tract infection, site not specified Skin candidiasis Candidiasis of skin and nails 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 ([facility]) Type 2 diabetes mellitus with diabetic chronic kidney disease ([facility]) Left elbow pain- Primary Pain in joint, upper arm Type 2 diabetes mellitus with hyperglycemia, without long-term current use of insulin ([facility]) Benign essential hypertension ([facility]) Essential hypertension, benign Chronic diastolic heart failure ([facility]) Chronic diastolic heart failure Encounter for long-term (current) use of medications Encounter for long-term (current) use of other medications Primary osteoarthritis of both knees Stage 3b chronic kidney disease (CKD) ([facility]) Dyslipidemia ([facility]) Other and unspecified hyperlipidemia Class 1 obesity due to excess calories with serious comorbidity and body mass index (BMI) of 33.0 to 33.9 in adult Type 2 diabetes mellitus with diabetic chronic kidney disease ([facility]) Medicare annual wellness visit, subsequent- Primary Upper respiratory tract infection, unspecified type Benign essential hypertension ([facility]) Essential hypertension, benign Type 2 diabetes mellitus with hyperglycemia, without long-term current use of insulin ([facility]) Type 2 diabetes mellitus without complication, unspecified whether oysterman insulin use- Primary Pain due to onychomycosis of toenails of both feet Venous insufficiency Unspecified venous (peripheral) insufficiency documented in this encounter [facility] HealthcareEvaluation note* Diagnosis Type 2 diabetes mellitus with hyperglycemia, without long-term current use of insulin ([facility])- Primary Benign essential hypertension Essential hypertension, benign Primary osteoarthritis of both knees Fibromyalgia Unspecified myalgia and myositis Major depressive disorder, recurrent episode, mild Major depressive disorder, recurrent episode, mild Generalized anxiety disorder Generalized anxiety disorder Chronic diastolic heart failure (HCC) Chronic diastolic heart failure Gastroesophageal reflux disease without esophagitis Esophageal reflux Encounter for long-term (current) use of medications Encounter for long-term (current) use of other medications Dyslipidemia Other and unspecified hyperlipidemia Vitamin D deficiency Type 2 diabetes mellitus with hyperglycemia, without long-term current use of insulin ([facility])- Primary Benign essential hypertension Essential hypertension, benign Chronic diastolic heart failure (HCC) Chronic diastolic heart failure Major depressive disorder, recurrent episode, mild Major depressive disorder, recurrent episode, mild Generalized anxiety disorder Generalized anxiety disorder Fibromyalgia Unspecified myalgia and myositis Gastroesophageal reflux disease without esophagitis Esophageal reflux Primary insomnia Persistent disorder of initiating or maintaining sleep Primary osteoarthritis of both knees Stage 3b chronic kidney disease (CKD) [place] Dyslipidemia Other and unspecified hyperlipidemia Encounter for long-term (current) use of medications Encounter for long-term (current) use of other medications Obesity (BMI 30-39.9) Acute UTI Urinary tract infection, site not specified Skin candidiasis Candidiasis of skin and nails 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 ([facility]) Left elbow pain- Primary Pain in joint, upper arm Type 2 diabetes mellitus with hyperglycemia, without long-term current use of insulin ([facility]) Benign essential hypertension Essential hypertension, benign Chronic diastolic heart failure (HCC) Chronic diastolic heart failure Encounter for long-term (current) use of medications Encounter for long-term (current) use of other medications Primary osteoarthritis of both knees Stage 3b chronic kidney disease (CKD) ([facility] Dyslipidemia Other and unspecified hyperlipidemia Class 1 obesity due to excess calories with serious comorbidity and body mass index (BMI) of 33.0 to 33.9 in adult Type 2 diabetes mellitus with diabetic chronic kidney disease ([facility]) Medicare annual wellness visit, subsequent- Primary Upper respiratory tract infection, unspecified type Benign essential hypertension Essential hypertension, benign Type 2 diabetes mellitus with hyperglycemia, without long-term current use of insulin (HCC) Type 2 diabetes mellitus with hyperglycemia, without long-term current use of insulin (HCC)- Primary Benign essential hypertension Essential hypertension, benign Fibromyalgia Unspecified myalgia and myositis Major depressive disorder, recurrent episode, mild Major depressive disorder, recurrent episode, mild Generalized anxiety disorder Generalized anxiety disorder Chronic diastolic heart failure (HCC) Chronic diastolic heart failure Primary insomnia Persistent disorder of initiating or maintaining sleep Stage 3b chronic kidney disease (CKD) [place] documented in this encounter [facility] HealthcareEvaluation note* Diagnosis Type 2 diabetes mellitus with hyperglycemia, without long-term current use of insulin ([facility])- Primary Benign essential hypertension Essential hypertension, benign Primary osteoarthritis of both knees Fibromyalgia Unspecified myalgia and myositis Major depressive disorder, recurrent episode, mild Major depressive disorder, recurrent episode, mild Generalized anxiety disorder Generalized anxiety disorder Chronic diastolic heart failure (HCC) Chronic diastolic heart failure Gastroesophageal reflux disease without esophagitis Esophageal reflux Encounter for long-term (current) use of medications Encounter for long-term (current) use of other medications Dyslipidemia Other and unspecified hyperlipidemia Vitamin D deficiency Type 2 diabetes mellitus with hyperglycemia, without long-term current use of insulin ([facility])- Primary Benign essential hypertension Essential hypertension, benign Chronic diastolic heart failure (HCC) Chronic diastolic heart failure Major depressive disorder, recurrent episode, mild Major depressive disorder, recurrent episode, mild Generalized anxiety disorder Generalized anxiety disorder Fibromyalgia Unspecified myalgia and myositis Gastroesophageal reflux disease without esophagitis Esophageal reflux Primary insomnia Persistent disorder of initiating or maintaining sleep Primary osteoarthritis of both knees Stage 3b chronic kidney disease (CKD) [place] Dyslipidemia Other and unspecified hyperlipidemia Encounter for long-term (current) use of medications Encounter for long-term (current) use of other medications Obesity (BMI 30-39.9) Acute UTI Urinary tract infection, site not specified Skin candidiasis Candidiasis of skin and nails 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 (HCC) Left elbow pain- Primary Pain in joint, upper arm Type 2 diabetes mellitus with hyperglycemia, without long-term current use of insulin ([facility]) Benign essential hypertension Essential hypertension, benign Chronic diastolic heart failure (HCC) Chronic diastolic heart failure Encounter for long-term (current) use of medications Encounter for long-term (current) use of other medications Primary osteoarthritis of both knees Stage 3b chronic kidney disease (CKD) ([facility]) Dyslipidemia Other and unspecified hyperlipidemia Class 1 obesity due to excess calories with serious comorbidity and body mass index (BMI) of 33.0 to 33.9 in adult Type 2 diabetes mellitus with diabetic chronic kidney disease ([facility]) Medicare annual wellness visit, subsequent- Primary Upper respiratory tract infection, unspecified type Benign essential hypertension Essential hypertension, benign Type 2 diabetes mellitus with hyperglycemia, without long-term current use of insulin ([facility]) Type 2 diabetes mellitus with hyperglycemia, without long-term current use of insulin ([facility])- Primary Benign essential hypertension Essential hypertension, benign Fibromyalgia Unspecified myalgia and myositis Major depressive disorder, recurrent episode, mild Major depressive disorder, recurrent episode, mild Generalized anxiety disorder Generalized anxiety disorder Chronic diastolic heart failure (HCC) Chronic diastolic heart failure Primary insomnia Persistent disorder of initiating or maintaining sleep Stage 3b chronic kidney disease (CKD) ([facility]) Primary insomnia Persistent disorder of initiating or maintaining sleep Type 2 diabetes mellitus without complication, unspecified whether penitentiary insulin use ([facility])- Primary Pain due to onychomycosis of toenails of both feet Venous insufficiency Unspecified venous (peripheral) insufficiency documented in this encounter [facility] HealthcareEvaluation note* Diagnosis Type 2 diabetes mellitus with hyperglycemia, without long-term current use of insulin ([facility])- Primary Benign essential hypertension Essential hypertension, benign Primary osteoarthritis of both knees Fibromyalgia Unspecified myalgia and myositis Major depressive disorder, recurrent episode, mild Major depressive disorder, recurrent episode, mild Generalized anxiety disorder Generalized anxiety disorder Chronic diastolic heart failure (HCC) Chronic diastolic heart failure Gastroesophageal reflux disease without esophagitis Esophageal reflux Encounter for long-term (current) use of medications Encounter for long-term (current) use of other medications Dyslipidemia Other and unspecified hyperlipidemia Vitamin D deficiency Type 2 diabetes mellitus with hyperglycemia, without long-term current use of insulin ([facility])- Primary Benign essential hypertension Essential hypertension, benign Chronic diastolic heart failure (HCC) Chronic diastolic heart failure Major depressive disorder, recurrent episode, mild Major depressive disorder, recurrent episode, mild Generalized anxiety disorder Generalized anxiety disorder Fibromyalgia Unspecified myalgia and myositis Gastroesophageal reflux disease without esophagitis Esophageal reflux Primary insomnia Persistent disorder of initiating or maintaining sleep Primary osteoarthritis of both knees Stage 3b chronic kidney disease (CKD) [place] Dyslipidemia Other and unspecified hyperlipidemia Encounter for long-term (current) use of medications Encounter for long-term (current) use of other medications Obesity (BMI 30-39.9) Acute UTI Urinary tract infection, site not specified Skin candidiasis Candidiasis of skin and nails 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 ([facility]) Left elbow pain- Primary Pain in joint, upper arm Type 2 diabetes mellitus with hyperglycemia, without long-term current use of insulin ([facility]) Benign essential hypertension Essential hypertension, benign Chronic diastolic heart failure ([facility]) Chronic diastolic heart failure Encounter for long-term (current) use of medications Encounter for long-term (current) use of other medications Primary osteoarthritis of both knees Stage 3b chronic kidney disease (CKD) ([facility] Dyslipidemia Other and unspecified hyperlipidemia Class 1 obesity due to excess calories with serious comorbidity and body mass index (BMI) of 33.0 to 33.9 in adult Type 2 diabetes mellitus with diabetic chronic kidney disease ([facility]) Medicare annual wellness visit, subsequent- Primary Upper respiratory tract infection, unspecified type Benign essential hypertension Essential hypertension, benign Type 2 diabetes mellitus with hyperglycemia, without long-term current use of insulin ([facility]) Type 2 diabetes mellitus with hyperglycemia, without long-term current use of insulin ([facility])- Primary Benign essential hypertension Essential hypertension, benign Fibromyalgia Unspecified myalgia and myositis Major depressive disorder, recurrent episode, mild Major depressive disorder, recurrent episode, mild Generalized anxiety disorder Generalized anxiety disorder Chronic diastolic heart failure ([facility]) Chronic diastolic heart failure Primary insomnia Persistent disorder of initiating or maintaining sleep Stage 3b chronic kidney disease (CKD) ([facility] Type 2 diabetes mellitus without complication, unspecified whether penitentiary insulin use ([facility])- Primary Pain due to onychomycosis of toenails of both feet Venous insufficiency Unspecified venous (peripheral) insufficiency documented in this encounter [facility] HealthcareEvaluation note* Diagnosis Closed fracture of right hip, initial encounter [place] Primary Closed fracture of right hip, initial encounter [place] Type 2 diabetes mellitus with stage 3b chronic kidney disease, with long-term current use of insulin [place] documented in this encounter [facility]* Diagnosis S/P hip hemiarthroplasty- Primary documented in this encounter [facility]* Diagnosis Age-related osteoporosis with current pathological fracture with routine healing - Primary History of right hip hemiarthroplasty Closed fracture of neck of right femur, sequela [facility]* Initiate Home Health Time [...] doctor or pharmacist, without first calling the bell spinner who implanted the stent. If you require [...] weight lifting, stair steppers, etc. until the bell spinner approves these activities. Check with the bell spinner on your first follow-up visit. CALL YOUR PHYSICIAN at [phone]: -If bleeding should occur from the catheter insertion site- apply pressure to the site then immediately call us. -Report any fever, redness, drainage, increased swelling, or firmness at the catheter insertion site. Some bruising or slight swelling may be present at the time of discharge. -Should arm or leg become cold, numb, white, or blue, contact the bell spinner immediately. -IF you should experience episodes of [...] is recommended. Please call Central Scheduling at [phone] to schedule your appointment.] The attending bell spinner or [facility] nurse clinician should provide you with specific instructions regarding activity, diet, medications, and further follow up for you. Follow the medication instructions provided on your discharge. If the dosages and instructions on this sheet differ from the dosage and instructions on the bottle, follow the instructions on the bottle. [facility] is not responsible for incorrect prescription information provided by the patient during their visit. Do not stop your medications without consulting your health care provider. Please take the list with you to your next doctor's appointment. Home Health to manage care: - Full code - PT/OT eval and treat - [facility] Work Phone: InstructionsNot on filedocumented in this encounter [employer] SystemInstructionsNot on filedocumented in this encounter [employer] SystemInstructionsNot on filedocumented in this encounter [employer] Interactive SystemInstructionsNot on filedocumented in this encounter [employer] SystemInstructionsNot on filedocumented in this encounter [employer] [facility] Summary Purpose Family History No Family History Records Found Relationship Condition Age at Onset Recorded Date/T tamiko Not Specified Diabetes mellitus Unknown Pulmonary emphysemaUnknownfatherCerebrovascular accident (CVA)Unknown Advance Directives No Advanced Directives Records Found Advance Directive Response Recorded Date/ Time Advance Directives No June 24, 2021 1:18am Date ActivatedDate [id number]/8/2025 5:39 PM10 5:47 PMDate ActivatedDate GqzwbemtnsvVkpzaehn99/8/2025 5:39 PM10 5:47 PM Chief Complaint and Reason for Visit Chief Complaint Non Stemi Reason for Visit CAD (coronary artery disease) Chronic kidney disease Depression Diabetes Fibromyalgia GERD (gastroesophageal reflux disease) HTN (hypertension) NSTEMI (non-ST elevated myocardial infarction) Additional Source Comments INFORMATION SOURCE (unrecogn ized section and content) DATE CREATED AUTHOR 09/19/2017 [facility] DATE CREATED AUTHOR AUTHOR'S ORGANIZ ATION 11/23/2019 [facility] DATE CREATED AUTHOR AUTHOR'S ORGANIZ ATION 07/30/2021 [facility] DATE CREATED AUTHOR AUTHOR'S ORGANIZ ATION 03/25/[address] [facility] DATE CREATED AUTHOR AUTHOR'S ORGANIZ ATION 07/05/2022 [facility] DATE CREATED AUTHOR AUTHOR'S ORGANIZ ATION 07/18/2024 [facility] DATE CREATED AUTHOR AUTHOR'S ORGANIZ ATION 09/08/2024 [facility] DATE CREATED AUTHOR AUTHOR'S ORGANIZ ATION 09/08/2024 [facility] DATE CREATED AUTHOR AUTHOR'S ORGANIZ ATION 11/28/2024 [facility] DATE CREATED AUTHOR AUTHOR'S ORGANIZ ATION 12/12/2024 [facility] Reason for Visit (unrecogniz ed section and content) ReasonCommentsChest symptoms/complaintsReasonCommentsMed RefillReasonComments Follow-uy7lFCZMcswfoGwfajzgaBJ Foot CareDm nail careReasonCommentsFollow-upTbh er f/up 02/23/24Knee PainReasonCommentsMedicare Annual Wellness Visit Initial WELLNESSReasonCommentsDM Foot Caredmnail careReasonCommentsFollow-up3m f/up DizzinessNeck PainReasonCommentsDM Foot CareReasonCommentsFallSpecialtyDiagnoses / ProceduresReferred By ContactReferred To Contact Diagnoses Pre-op exam Closed fracture of right hip, initial encounter ([facility] Gonzalo Rolle MD [address] [place] [address] Phone: tel: fax: Referral IDStatusReasonStart DateExpiration DateVisits RequestedVisits [id number] R hip dylon (11/27), XR at [facility] ([facility]3] transport will be waiting inwaiting room for patientPost-op Care Teams (unrecognized sec tion and content) Team Status: Inactive Member Role Status Dates Amador Abdalla MD Primary Care Provider Active Xander Ortiz MDAdmit ProviderActiveElba Pittman RNOther ProviderActiveW Domingo Bolivar , DOOther ProviderActiveWil Domínguez MDOther ProviderActiveZafar Luu MDOther ProviderActiveMogaston Beckwith MDOther ProviderActiveRufus Sauceda MDOther ProviderActiveDonbessie Kaur , APRNOther ProviderActiveLatsoha Figueroa MDOther ProviderActive Dinora Haynes MDOther ProviderActiveRahul Hi MDOther Provider ActiveRusty Amor MDAttending ProviderActive Team Status: Active Member Role Status Dates Amador Abdalla MD Primary Care Provider Active Team MemberRelationshipSpecialtyStart DateEnd Date Amador Abdalla MD [address] [place] [id number] PCP - GeneralFamily Medicine04/25/23Team MemberRelationshipSpecialtyStart DateEnd Date Amador Abdalla MD [address] [place] [address] PCP - GeneralFamily Medicine04/25/23Team MemberRelationshipSpecialtyStart DateEnd Date Amador Abdalla MD [address] [place] [address] PCP - GeneralFamily Medicine04/25/23Team MemberRelationshipSpecialtyStart DateEnd Date Amador Abdalla MD [address] [place] [address] PCP - GeneralFamily Medicine04/25/23Team MemberRelationshipSpecialtyStart DateEnd Date Amador Abdalla MD [address] [place] [address] PCP - GeneralFamily Medicine04/25/23Team MemberRelationshipSpecialtyStart DateEnd Date Amador Abdalla MD [address] [place] [address] PCP - GeneralFamily Medicine04/25/23Team MemberRelationshipSpecialtyStart DateEnd Date Amador Abdalla MD [address] [place] [address] PCP - GeneralFamily Medicine04/25/23Team MemberRelationshipSpecialtyStart DateEnd Date Amador Abdalla MD [address] [place] [address] PCP - GeneralFamily Medicine04/25/23 Carmina Garcia, [facility] Medicine02/28/24 Miguel Blank MA Family Medicine02/28/24Team MemberRelationshipSpecialtyStart DateEnd Date Amador Abdalla MD [address] [place] [address] PCP - GeneralFamily Medicine04/25/23 Carmina Garcia, [facility] Social Workermily Medicine02/28/24 Miguel Blank MA Family Medicine02/28/24Team MemberRelationshipSpecialtyStart DateEnd Date Amador Abdalla MD [address] [place] [address] PCP - GeneralFamily Medicine04/25/23 Carmina Garcia, [facility] Social Workermi Medicine02/28/24 Miguel Blank, YULY Family Medicine02/28/24Team MemberRelationshipSpecialtyStart DateEnd Date Amador Abdalla MD [address] [place] [phone] PCP - GeneralFamily Medicine04/25/23 Carmina Garcia, [facility] Social Workermi Medicine02/28/24 Miguel Blank MA Family Medicine02/28/24Team MemberRelationshipSpecialtyStart DateEnd Date Amador Abdalla MD [address] [place] [address] PCP - GeneralFamily Medicine04/25/23 Carmina Garcia, [facility] Social Workermily Medicine02/28/24 Miguel Blank, YULY Family Medicine02/28/24Team MemberRelationshipSpecialtyStart DateEnd Date Amador Abdalla MD [address] [place] [address] PCP - GeneralFamily Medicine04/25/23 Carmina Garcia, [facility] Social WorkerFamily Medicine02/28/24 Migeul Blank MA Family Medicine02/28/24Team MemberRelationshipSpecialtyStart DateEnd Date Amador Abdalla MD PCP - GeneralFamily [id number]/27/21Team MemberRelationshipSpecialtyStart Date End Date Amador Abdalla MD PCP - GeneralFamily Jlbzxhmc47/27/21Team MemberRelationshipSpecialtyStart Date End Date Amador Abdalla MD PCP - GeneralFamily [id number]/27/21Team MemberRelationshipSpecialtyStart Date End Date Amador Abdalla MD [address] [place] [address] PCP - GeneralFamily Medicine04/25/23 Amador Abdalla MD [address] [place] [address] PCP - [place] MA02/20/24 Carmina Garcia, [facility] Social Workermily Medicine02/28/24 Miguel Blank MA Family Medicine02/28/24Team MemberRelationshipSpecialtyStart DateEnd Date Amador Abdalla MD [address] [place] [address] PCP - GeneralFamily Medicine04/25/23 Amador Abdalla MD [address] [place] [address] PCP - Lilliana EMERY02/20/24 Carmina Garcia, [facility] Social [facility]er[facility]02/28/24 Miguel Blank MA [facility]02/28/24Team MemberRelationshipSpecialtyStart DateEnd Date Amador Abdalla MD [address] [place] [address] PCP - Generalmily Medicine04/25/23 Amador Abdalla MD [address] [place] [address] PCP - [place]02/20/24 Carmina Garcia, [facility] Social WorkerBoston [facility] Medicine02/28/24 Miguel Blank MA [facility]02/28/24Team MemberRelationshipSpecialtyStart DateEnd Date Amador Abdalla MD [address] [place] [address] PCP - Generalmily Medicine04/25/23 Amador Abdalla MD [address] [place] [address] PCP - [place]ill[place] EMERY02/20/24 Carmina Garcia, [facility] Social WorkerBoston [facility] Medicine02/28/24 Miguel Blank MA [facility]02/28/24Team MemberRelationshipSpecialtyStart DateEnd Date Amador Abdalla MD [address] [place] [address] PCP - [facility] Medicine04/25/23 Amador Abdalla MD [address] [place] [address] PCP - [place]02/20/24 Carmina Garcia, [facility] Social WorkerBoston [facility] Medicine02/28/24 Miguel Blank MA [facility]02/28/24Team MemberRelationshipSpecialtyStart DateEnd Date Amador Abdalla MD [address] [place] [address] [facility] - [facility]04/25/23 Amador Abdalla MD [address] [place] [address] PCP - [place]02/20/24 Miguel Blank MA [address] [place] [address] [facility]02/28/24Team MemberRelationshipSpecialtyStart DateEnd Date Amador Abdalla MD [address] [place] [address] [facility] - [facility]04/25/23 Amador Abdalla MD [address] [place] [address] PCP - [place]02/20/24 Miguel Blank MA [address] [place] [address] [facility]02/28/24Team MemberRelationshipSpecialtyStart DateEnd Date Amador Abdalla MD [address] [place] [address] PCP - Generalmi Medicine04/25/23 Amador Abdalla MD [address] [place] [address] PCP - [place]02/20/24 Miguel Blank MA [address] [place] [address] [facility]02/28/24Team MemberRelationshipSpecialtyStart DateEnd Date Amador Abdalla MD [address] [place] [address] PCP - [facility] Medicine04/25/23 Amador Abdalla MD [address] [place] [address] PCP - [place]02/20/24 Miguel Blank MA [address] [place] [address] [facility]02/28/24Team MemberRelationshipSpecialtyStart DateEnd Date Amador Abdalla MD [address] [place] [address] PCP - [facility] Medicine04/25/23 Amador Abdalla MD [address] [place] [address] PCP - [place]02/20/24 Miguel Blank, YULY [address] [place] [address] Family Medicine02/28/24Team MemberRelationshipSpecialtyStart DateEnd Date Amador Abdalla MD [address] [place] [address] PCP - GeneralBoston [facility]atorium Sdebnbht78/8/25Te MemberRelationshipSpecialtyStwhittier DateEnd Amador Abdalla MD [address] [place] [address] PCP - GeneralBoston Sanatorium Uxbrukew11/8/25Te MemberRelationsScripps Memorial HospitalpecialtyStart DateEnd Date Amador Abdalla MD [address] [place] [address] PCP - Generalmi Avbuzztk38/8/25 Scheduled Active and Recently Administ ered Medications (unrecognized section and content) Medication Order// acetaminophen (TYLENOL EXTRA STRENGTH) tablet 1,000 mg [...] RN) * 0329 (Given - Provider: Jeniffer Wdae RN) * 0900 (Not Given - Provider: Mandy Munson RN, Instructor - Reason: Other - Comment: retime for 1100am) * 1308 (Given - Provider: Terra Etienne RN) * 2104 (Given - Provider: Jeniffer Wade RN) * 0314 (Given - Provider: Jeniffer Wade RN) * 1220 (Given - Provider: Kelley Hills, RN) amLODIPine (NORVASC) tablet 5 mg (CANCELED) 5 [...] * 0929 (Given - Provider: Kelley Hills, SHAHNAZ) buPROPion XL (WELLBUTRIN XL) 24 hr tablet 150 mg 150 mg, oral, Daily, First dose on Daria 11/27/24 at 1615, Look-alike/sound-alike medication - verify indication for use. Do not crush or chew. * 0926 (Given - Provider: Terra Etienne RN) * 0945 (Given - Provider: Robina Ayers) * 0929 (Given - Provider: Kelley Hills, SHAHNAZ) calcium citrate (CALCITRATE) tablet 400 mg 400 mg, oral, 3 times daily with meals, First dose on Daria 11/27/24 at 1700, PACU & Post-op * 0927 (Given - Provider: Terra Etienne RN) * 1407 (Given - Provider: Terra Etienne, SHAHNAZ) * 1605 (Given - Provider: Terra Etienne RN) * 0944 (Given - Provider: Robina Ayers) * 1309 (Given - Provider: Terra Etienne, SHAHNAZ) * 1710 (Given - Provider: Terra Etienne, SHAHNAZ) * 0929 (Given - Provider: Kelley Hills RN) * 1220 (Given - Provider: Kelley Hills RN) carvediloL (COREG) tablet 12.5 mg (CANCELED) 12.5 mg, oral, 2 times daily with meals, First dose on Sun11/27/24 at 1700, Hold for systolic bloodpressure less than 100 and heart rate less than 60 Give with meal or snack. Look-alike/sound-alike medication - verify indication for use. * 0927 (Given - Provider: Terra Etienne RN) * 1605 (Given - Provider: Terra Etienne RN) * 0844 (Given - Provider: Terra Etienne, SHAHNAZ) * 1710 (Given - Provider: Terra Etienne, SHAHNAZ) carvediloL (COREG) tablet 25 mg 25 mg, [...] RN) * 0930 (Given - Provider: Kelley Hills RN) ceFUROxime (CEFTIN) tablet 500 mg (CANCELED) 500 mg, oral, Every 12 hours scheduled, First dose on Sun11/28/24 at 2100, For 7 days, Indication:Other, Specify: perisurgical prophylaxis * 0939 (Given - Provider: Terra Etienne, RN) cholecalciferol (vitamin D3) tablet 2,000 Units 2,000 Units, oral, Daily, First dose on Daria 11/27/24 at 1515, PACU & Post-op * 0927 (Given - Provider: Terra Etienne, RN) * 0946 (Given - Provider: Robina Ayers) * 0929 (Given - Provider: Kelley Hills, SHAHNAZ) heparin (porcine) injection 5,000 Units 5,000 Units, subcutaneous, Every 8 hours scheduled, First dose on Sun11/28/24 at 0600, Look-alike/sound-alike medication - verify indication for use. Observe for bleeding. * 0524 (Given - Provider: Maria Luisa Ko RN) * 1407 (Given - Provider: Terra Etienne RN) * 2146 (Given - Provider: Jeniffer Wade, SHAHNAZ) * 0637 (Given - Provider: Jeniffer Wade, RN) * 1309 (Given - Provider: Terra Etienne RN) * 2108 (Given - Provider: Jeniffer Wade, SHAHNAZ) * 0628 (Given - Provider: Jeniffer Wade, SHAHNAZ) * 1220 (Given - Provider: Kelley Hills, SHAHNAZ) hydrALAZINE (APRESOLINE) injection 10 mg (COMPLETED) 10 mg, intravenous, Once, On 11/30/24 at 0430, For 1 dose, For systolic blood pressure greater than 180 mmHg Look-alike/sound-alike medication - verify indication for use. Administer IV doses as a slow IV push; maximum rate: 5 mg/minute. * 0435 (Given - Provider: Jeniffer Wade RN) insulin lispro (HumaLOG) injection 1-4 Units 1-4 [...] before or immediately after a meal. * 215 (Given - Provider: Jeniffer Wade, SHAHNAZ) * 211 (Given - Provider: Jeniffer Wade, SHAHNAZ) insulin lispro (HumaLOG) injection 2-10 Units 2-10 [...] * 0926 (Given - Provider: Terra Etienne, RN) * 1408 (Given - Provider: Terra Etienne, [...] 15 Minutes, Daily, First dose on Sun11/30/24 [id number], For 5 doses, Monitor patient for hypersensitivity reactions for at least 30 minutes after theinfusion. AVOID the use of H1 antihistamines, such as diphenhydramine, as this may worsen hypersensitivity reactions. Have resuscitation equipment and medications available. * 220 (New Bag - Provider: Jeniffer Wade RN) * 2224 (Stop Bag - Provider: Jeniffer Wade RN) * 0939 (New Bag - Provider: Kelley Hills RN) * 0954 (Stop Bag - Provider: Kelley Hills RN) isosorbide mononitrate (IMDUR) 24 hr tablet [...] Instructor) * 0930 (Given - Provider: Kelley Hills RN) polyethylene glycol (GLYCOLAX) packet 17 g 17 g, oral, Daily, First dose on Sun11/29/24 at 1815, Look-alike/sound-alike medication - verify indication for use. Dissolve 1 packet (17 gm) in 8 ounces of water, juice, soda, coffee or tea. * 1815 (Not Given - Provider: Terra Etienne RN - Reason: Patient/family refused) * 0958 (Given - Provider: Mandy Munson RN, Instructor) * 0929 (Given - Provider: Kelley Hills RN) sennosides-docusate sodium (SENOKOT-S) 8.6-50 mg 2 tablet 2 tablet, oral, Nightly, First dose on Sun11/26/24 at 2200 * 214 (Given - Provider: Jeniffer Wade RN) * 2103 (Given - Provider: Jeniffer Wade RN) Medication Order/// ALPRAZolam (XANAX) tablet 0.25 mg (COMPLETED) 0.25 [...] - pain scale 1-6, Starting on Sun11/26/24 [id number], For patients less than 75 years of [...] 0740, For 6 hours, Additional Imaging Orders FOR RECORDS PERTAINING TO PATIENTS WHO ARE [...] BE BASED ON THE PRIMARY CLINICAL RECORDS. Call [facility]. provides no warranty or guarantee of the accuracy or completeness of information in this document.
[2024-12-13] VITALS (26 sets, daily range): BP systolic 146–170; BP diastolic 54–86; PULSE 18–82; TEMP 36.9–37.1; O2SAT 89–97
[2024-12-13] MEDS: 0.9 % SODIUM CHLORIDE 1,000 ML 75 ML IV (00:31)
[2024-12-13] MEDS: ERTAPENEM SODIUM 0.5 GM in 0.9 % SODIUM CHLORIDE 50 ML IV ×2 (00:31→23:45)
[2024-12-13] MEDS: ISOSORBIDE MONONITRATE 30 MG TAB.ER.24H PO ×2 (00:36→21:30)
[2024-12-13] MEDS: MONTELUKAST SODIUM 10 MG TABLET PO ×2 (00:36→21:30)
[2024-12-13] MEDS: SENNOSIDES/DOCUSATE SODIUM 1 TAB TABLET 2 TAB PO ×2 (00:36→21:30)
[2024-12-13] MEDS: ATORVASTATIN CALCIUM 40 MG TABLET 80 MG PO ×2 (00:36→21:30)
[2024-12-13] MEDS: FUROSEMIDE 40 MG/4 ML VIAL IVP (03:59)
[2024-12-13] MEDS: HYDRALAZINE HCL 25 MG TABLET 50 MG PO (06:00)
[2024-12-13 06:31] LABS: Hematocrit 25.6 % (36.0-48.0); Hemoglobin 7.9 g/dL (12.0-16.0); Mean Corpuscular HGB Conc 30.9 g/dL (29.9-35.2); Mean Corpuscular Hemoglobin 32.9 pg (26.7-34.0); Mean Corpuscular Volume 106.7 fL (81.0-99.0); Platelet Count 285 10^3/uL (150-450); Red Blood Count 2.40 10^6/uL (4.20-5.40); White Blood Count 8.5 10^3/uL (4.0-11.0)
[2024-12-13] MEDS: CARVEDILOL 6.25 MG TABLET 12.5 MG PO (06:37)
[2024-12-13 06:44] LABS: Alanine Aminotransferase 19 U/L (14-59); Albumin Globulin Ratio 0.8; Albumin Level 2.7 g/dL (3.4-5.0); Alkaline Phosphatase 67 U/L (46-116); Anion Gap 11.2; Aspartate Amino Transferase 11 U/L (15-37); Blood Urea Nitrogen 41.0 mg/dL (7.0-18.0); Calcium 9.4 mg/dL (8.5-10.1); Carbon Dioxide 30.2 mmol/L (21.0-32.0); Chloride 105 mmol/L (98-107); Estimated GFR (African America 22 (>=60 mL/min/1.73m^2); Estimated GFR (Non-African Ame 18 (>=60 mL/min/1.73m^2); Globulin 3.3 g/dL; Glucose 196 mg/dL (74-106); Potassium 4.4 mmol/L (3.5-5.1); Sodium 142 mmol/L (136-145); Total Protein 6.0 g/dL (6.4-8.2)
[2024-12-13 06:55] LABS: Iron 56.0 ug/dL (50.0-170.0); Percent Iron Saturation 20.4 %; Total Iron Binding Capacity 274.0 ug/dL (250.0-450.0)
[2024-12-13 07:51] LABS: Ferritin 148.0 ng/mL (8.0-252.0); Folate 19.80 ng/mL (8.60-58.90)
--- NOTE | 2024-12-13 08:00 | US_ITS ---
[address] [address] Patient Name: RIVKA TURNER MRN: [id number] date: 1945 Sex: F Assigned Patient Location: [place] Current Patient Location: [place] Accession/Order Number: [id number] Exam Date: 12/13/2024 08:01 Report Date: 12/13/2024 08:47 At the request of: MARQUITA MERAZ MD Procedure: US renal BI Bilateral Renal Ultrasound HISTORY: Acute on chronic kidney injury. COMPARISON: None RIGHT kidney measures 10.0 cm. LEFT kidney measures 9.2 cm. Hydronephrosis: None RENAL STONE: No shadowing renal calculus is seen. RENAL LESIONS: No renal lesion identified. URINARY BLADDER: Layering echogenic debris. REPRODUCTIVE STRUCTURES Not assessed IMPRESSION : No hydronephrosis. Impression dictated by: Brent Vazquez M.D. 12/13/2024 8:47 AM Dictation Location: [facility]Par[facility] PicturesPE[facility]HE[facility] CENTERWorld [employer] Electronically authenticated by: [id number] Y Date: 12/13/2024 08:47
[2024-12-13] MEDS: PAROXETINE HCL 20 MG TABLET 40 MG PO (08:54)
[2024-12-13] MEDS: BUPROPION HCL 150 MG XL TABLET 24H PO (08:54)
[2024-12-13] MEDS: PANTOPRAZOLE SODIUM 40 MG TABLET.DR PO (08:54)
[2024-12-13] MEDS: CHOLECALCIFEROL (VITAMIN D3) 25 MCG/1,000 UNITS TABLET PO (08:54)
[2024-12-13] MEDS: AMLODIPINE BESYLATE 5 MG TABLET PO (08:55)
[2024-12-13] MEDS: ASPIRIN 81 MG TABLET.DR PO (08:55)
[2024-12-13] MEDS: INSULIN ASPART 300 UNIT/3 ML PEN SUBQ ×4 (08:55→21:31)
--- NOTE | 2024-12-13 09:41 | PM.IMHP1 ---
Internal Medicine - H&P: HPI History of Present Illness Chief complaint: UTI, CHF Narrative: Elif Shah is a 79 y/o F, h/o frequent UTI, s/p R EULOGIO 2 weeks ago, HTN, diabetes mellitus, CKD (baseline Cr 1.8 - 2) presented to [facility] from rehab with confusion admitted for UTI and concerns for CHF. On assessment at bedside on the regular nursing floor, patient appears comfortable in bed, endorses above history, denies any chest pain, nausea, vomiting, diarrhea. Does state she has had some dysuria and suprapubic tenderness for at least the past week, denies any fevers or chills, no blood in urine. States feels some improvement compared to presentation. In the ER, WBC 8.5, hgb 8.0, plts 302, Na 144, K 5.0, BUN 48, Cr 2.96, Glucose 223. CXR showed concerns for mild CHF, CT head w/o acute findings, no hydronephrosis on renal ultrasound. Review of Systems ROS Status of ROS 10 or more systems reviewed and unremarkable except as noted in history and below [facility] Medical History (Updated 04/28/24 @ 00:00 by ) Fall ?W19.XXXA - Unspecified fall, initial encounter (ICD-10) Anterior chest wall pain ?R07.89 - Other chest pain (ICD-10) Lumbar transverse process fracture ?S32.009A - Unspecified fracture of unspecified lumbar vertebra, initial encounter for closed fracture (ICD-10) Acute hyperglycemia ?R73.9 - Hyperglycemia, unspecified (ICD-10) Acute UTI ?N39.0 - Urinary tract infection, site not specified (ICD-10) Weakness ?R53.1 - Weakness (ICD-10) UTI (urinary tract infection) ?N39.0 - Urinary tract infection, site not specified (ICD-10) Elevated troponin ?R79.89 - Other specified abnormal findings of blood chemistry (ICD-10) Generalized weakness ?R53.1 - Weakness (ICD-10) Fall ?W19.XXXA - Unspecified fall, initial encounter (ICD-10) HTN (hypertension) ?I10 - Essential (primary) hypertension (ICD-10) HLD (hyperlipidemia) ?E78.5 - Hyperlipidemia, unspecified (ICD-10) CAD (coronary artery disease) ?I25.10 - Atherosclerotic heart disease of [place] coronary artery without angina pectoris (ICD-10) History of heart attack ?I25.2 - Old myocardial infarction (ICD-10) History of stroke ?Z86.73 - Personal history of transient ischemic attack (TIA), and cerebral infarction without residual deficits (ICD-10) Diabetes ?E11.9 - Type 2 diabetes mellitus without complications (ICD-10) Surgical History (Updated 11/18/23 @ 12:47 by Leona Mario LPN) History of heart artery stent ?Z95.5 - Presence of coronary angioplasty implant and graft (ICD-10) Hx of cholecystectomy ?Z90.49 - Acquired absence of other specified parts of digestive tract (ICD-10) H/O hernia repair ?Z98.890 - Other specified postprocedural states (ICD-10) ?Z87.19 - Personal history of other diseases of the digestive system (ICD-10) Family History (Updated 11/18/23 @ 12:46 by Leona Mario LPN) Mother Family history of COPD (chronic obstructive pulmonary disease) Family history of cancer Family history of diabetes mellitus Father Family history of hypertension Social History (Updated 11/18/23 @ 12:49 by Leona Mario LPN) Within the past year, how often did you have a drink containing alcohol: never Within the past year, how often did you have six or more drinks on one occasion: never Score interpretation: A score less than 3 is consistent with normal alcohol consumption. Smoking status: Never smoker Second hand tobacco smoke exposure: No Non-prescribed substance use: denies use Previous occupational history: retired Known occupational exposures/hazards: No Highest level of school completed/degree received: GED or equivalent Are you now , , , , never or living with a partner: In a typical week, how many times do you talk on the telephone with family, friends, or neighbors: 3 or more times per week How often do you get together with friends or relatives: 3 or more times per week How often do you attend zoroastrianism or synagogue services: never Do you belong to any clubs or organizations such as zoroastrianism groups unions, fraternal or athletic groups, or school groups: no Total score: 1 Score interpretation: A score of less than or equal to 1 indicates the most socially isolated. Little interest or pleasure in doing things: not at all Feeling down, depressed, or hopeless: not at all Feel stressed/tense/nervous/anxious/difficulty sleeping: not at all Due to disability, difficulty making decisions: No Do you think of yourself as: straight/heterosexual Gender Identity: female Meds Home Medications and Allergies Home Medications ?Medication ?Instructions ?Recorded ?Confirmed ?Type amlodipine 10 mg tablet 10 mg PO DAILY 11/18/23 12/12/24 History atorvastatin 80 mg tablet 80 mg PO .QHS 11/18/23 12/12/24 History bupropion HCl 150 mg 24 hr tablet, 150 mg PO DAILY 11/18/23 12/12/24 History extended release cholecalciferol (vitamin D3) 25 50 mcg PO DAILY 11/18/23 12/13/24 History mcg (1,000 unit) tablet famotidine 40 mg tablet 40 mg PO DAILY 11/18/23 12/12/24 History montelukast 10 mg tablet 10 mg PO .QHS 11/18/23 12/12/24 History pantoprazole 40 mg tablet,delayed 40 mg PO DAILY 11/18/23 12/12/24 History release paroxetine HCl 40 mg tablet 40 mg PO DAILY 11/18/23 12/12/24 History sitagliptin phosphate 25 mg tablet 25 mg PO DAILY 11/18/23 12/12/24 History (Januvia) aspirin 81 mg tablet,delayed 81 mg PO DAILY 04/02/24 12/12/24 History release (Adult Aspirin Regimen) carvedilol 25 mg tablet 25 mg PO BID 04/02/24 12/12/24 History fluticasone propionate 50 2 spray intranasal DAILY PRN nasal 04/02/24 12/12/24 History mcg/actuation nasal congestion spray,suspension furosemide 20 mg tablet 40 mg PO DAILY 04/22/24 12/12/24 History isosorbide mononitrate 30 mg 30 mg PO QD #30 tabs 04/24/24 12/12/24 Rx tablet,extended release 24 hr acetaminophen 500 mg capsule 1,000 mg PO Q8H PRN fever or pain 12/12/24 12/12/24 History baclofen 10 mg tablet 10 mg PO DAILY PRN pain 12/12/24 12/12/24 History baclofen 10 mg tablet 10 mg PO QPM 12/12/24 12/12/24 History empagliflozin 25 mg tablet 25 mg PO DAILY 12/12/24 12/12/24 History (Jardiance) heparin, porcine (PF) 5,000 5,000 unit subcut Q6H 12/12/24 12/12/24 History unit/0.5 mL injection solution hydralazine 50 mg tablet 50 mg PO BID 12/12/24 12/12/24 History insulin lispro 100 unit/mL 2 - 12 sliding scale dose subcut 12/12/24 12/13/24 History subcutaneous solution (Admelog ACHS U-100 Insulin lispro) oxycodone 5 mg capsule 5 mg PO Q6H PRN pain 12/12/24 12/12/24 History polyethylene glycol 3350 17 17 g PO QDAY 12/12/24 12/12/24 History gram/dose oral powder (ClearLax) sennosides 8.6 mg-docusate sodium 2 tab-cap PO BEDTIME 12/12/24 12/12/24 History 50 mg tablet (Colace 2-In-1) temazepam 15 mg capsule 7.5 mg PO QPM 12/12/24 12/12/24 History heparin (bovine) 5,000 unit/mL 5,000 unit .Route Q8H until 12/13/24 12/13/24 History injection solution 12/29/24 for post surgery Allergies Allergy/AdvReac Type Severity Reaction Status Date / Time cyclobenzaprine (From Allergy Severe Rash Verified 04/22/24 10:50 Flexeril) ethinyl estradiol (From Allergy Severe Swelling Verified 04/22/24 10:50 Trivora (28)) of Lip/Tongue/Throat exenatide (From Byetta) Allergy Severe Rash Verified 04/22/24 10:50 Iodinated Contrast Media Allergy Severe Rash Verified 04/22/24 10:50 levonorgestrel (From Trivora Allergy Severe Swelling Verified 04/22/24 10:50 (28)) of Lip/Tongue/Throat Penicillins Allergy Severe Rash Verified 04/22/24 10:50 prochlorperazine (From Allergy Severe Confusion Verified 04/02/24 13:30 Compazine) clindamycin (From Cleocin) AdvReac Severe esophagus Verified 04/22/24 10:50 spasms doxycycline AdvReac Severe Nausea Verified 04/22/24 10:50 levofloxacin AdvReac Severe Nausea Verified 04/22/24 10:50 ticagrelor (From Brilinta) AdvReac Severe Vomiting Verified 04/22/24 10:50 trazodone AdvReac Severe Nausea Verified 04/22/24 10:50 Exam Narrative Exam Narrative: General: cooperative and tired appearing Orientation: alert, awake and oriented x3 Head: normal to inspection Neck: normal visual inspection Cardio: no JVD, regular rate, regular rhythm Chest palpation & inspection: normal inspection of the chest Resp Effort & Inspection: normal respiratory effort Abd: soft, non-tender, non-distended Extremities: Warm well perfused, no edema Constitutional Vital Signs, click to edit/add: Last Vital Signs Temp 98.4 F 12/13/24 08:00 Pulse 18 L 12/13/24 08:00 Resp 18 12/13/24 08:00 BP 159/54 H 12/13/24 08:00 Pulse Ox 91 L 12/13/24 08:00 O2 Del Method Room Air 12/13/24 08:00 Internal Medicine - H&P: Reslt Labs Labs: Short CBC 12/12/24 12/13/24 Range/Units 18:40 05:31 WBC 9.5 8.5 (4.0-11.0) 10^3/uL Hgb 8.0 L 7.9 L (12.0-16.0) g/dL Hct 25.6 L 25.6 L (36.0-48.0) % Plt Count 302 285 (150-450) 10^3/uL BMP 12/12/24 12/13/24 18:40 05:31 Sodium 144 142 Potassium 5.0 4.4 Chloride 105 105 Carbon Dioxide 30.4 30.2 BUN 48.0 H 41.0 H Creatinine 2.96 H 2.59 H Glucose 223 H 196 H Calcium 9.1 9.4 Liver Function 12/12/24 12/13/24 Range/Units 18:40 05:31 Total Bilirubin 0.3 0.4 (0.2-1.0) mg/dL AST 9 L 11 L (15-37) U/L ALT 25 19 (14-59) U/L Alkaline Phosphatase 75 67 (46-116) U/L Albumin 2.8 L 2.7 L (3.4-5.0) g/dL Urine 12/12/24 Range/Units 18:56 Urine Color Lt. yellow (YELLOW) Urine Clarity Sl cloudy (CLEAR) Urine pH 5.5 (5.0-9.0) Ur Specific [place] 1.010 (1.005-1.025) Urine Protein 30 A (NEG/TRACE) mg/dL Urine Glucose (UA) >=1000 A (NEGATIVE) mg/dL Urinary Catheter Management Urinary Catheter Management Pure Wick: Cath placed during this visit: yes Urethral indwelling: No Insertion date: 12/13/24 Insertion time: 04:41 Assessment and Plan Assessment and Plan (1) Acute hyperglycemia: (2) Acute UTI: (3) Weakness: (4) Diabetes: Qualifiers: Diabetes mellitus type: type 2 Diabetes mellitus ocean transportation intermediary insulin use: without mcfp use Diabetes mellitus complication status: without complication Qualified Code(s): E11.9 - Type 2 diabetes mellitus without complications Plan Eilf Shah is a 79 y/o F, h/o frequent UTI, s/p R EULOGIO 2 weeks ago, HTN, diabetes mellitus, CKD (baseline Cr 1.8 - 2) presented to [facility] ER from rehab with confusion admitted for UTI and concerns for CHF. 1. 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 h/o s/p R EULOGIO 2 weeks ago, HTN, diabetes mellitus - hold antihyperglycemics, SSI while inpatient - continue coreg, hydralazine, amlodipine - continue baclofen Diet: Cardiac Daily Labs: CBC, BMP Lines/Drains: PIV DVT ppx: Lovenox Code status: Full Status: inpatient for antibiotics, UTI with history of MDRO
[2024-12-13] MEDS: HYDRALAZINE HCL 20 MG/ML VIAL 10 MG IVP ×2 (11:35→19:26)
[2024-12-13] MEDS: CALCIUM CARBONATE 500 MG (200MG ELEMENTAL) TAB CHEW PO (19:26)
[2024-12-13] MEDS: ACETAMINOPHEN 325 MG TABLET 650 MG PO (19:26)
--- OUTSIDE RECORDS SUMMARY | 2024-12-13 20:09 | XMS_ITS | Continuity of Care Document ---
Author Organization [facility] Address [address] [place] [address] Phone Care Team Providers Care Strip Cutter Name Role Phone Amador Lopez MD Primary Care Provider [phone] Tristan Gore DO Attending Provider [phone] Elizabeth Mosley MD Attending Provider Care Teams Patient Care Team Team Status: Active Member Role/Relationship Status Dates Amador Lopez MD Primary Care Provider Active S tart: December 12, 2024 Tristan Gore DOAttending ProviderActiveStart: December 12, 2024 Patient Care Team Team Status: Inactive Member Role/Relationship Status Dates Tristan Gore DO Attending Provider Active Sta rt: December 12, 2024 End: December 12, 2024 Patient Care Team Team Status: Active Member Role/Relationship Status Dates Elizabeth Mosley MD Attending Provider Active Sta rt: December 13, 2024 Chief Complaint and Reason for Visit Chief Complaint Admit Date Unknown December 12, 2024 6 :56pm Allergies, Adverse Reactions, Alerts Allergen Type Severity Reaction Last Updated Verified Status clindamycin Allergy Unknown Difficulty Swallowing, esophagus swelling November 12, 2024 9:36am Yes Active codeine Allergy Unknown Unknown Reaction Septembe r 2024 9:36am Yes Active cyclobenzaprine Allergy Unknown Itching, zeny h, itchy November 12, 2024 9:36am Yes Active exenatide Allergy Unknown Rash, nausea/itching November 12, 2024 9:36am Yes Active Iodinated Contrast Media Allergy Unknown Itching, rash, itchy November 12, 2024 9:36am Yes Active penicillin G Allergy Unknown rash, itching November 12, 2024 9:36am Yes Active prochlorperazine Allergy Unknown Cramping of the Muscles November 12, 2024 9:36am Yes Active sucralfate Allergy Unknown Nausea, stomach upset November 12, 2024 9:36am Yes Active trazodone Allergy Unknown Nausea, stomach upset November 12, 2024 9:36am Yes Active amoxicillin Allergy Unknown [facility] 9:[facility] Yes Active doxycycline Allergy Unknown Unknown [facility] 20[facility] 9:36am Yes Active Penicillins Allergy Unknown Itching November 12, 2024 9:36am Yes Active gb dye tablets Allergy Unknown face [facility] 3:45pm No Active trival Allergy Unknown face swelling November 01, 2021 3:45pm No Active Social History Smoking Status Status Start Date End Date Date of Observa tion Never smoked tobacco (finding) June 24, 2021 12:55pm Observation Status Observation Response Date of Response Legal Sex Female (finding) [facility] Family History Relationship Condition Age at Onset Recorded Date/T tamiko mother Diabetes mellitus Unknown Pulmonary emphysemaUnknownfatherCerebrovascular accident (CVA)Unknownfather DeceasedUnknownmotherDeceasedUnknown Problems Active Problems Problem Diagnosis/Recorded Date Onset Date Status C omments Primary insomnia November 11, 2024 1:01pm Unknown Ac tive Inactive/Resolved Problems Problem Diagnosis/Recorded Date Onset Date Status C omments Diabetes June 24, 2021 4:36am Unknown Resolved Prob scooter List clean-up per request of Phys. EHR Cmte CAD (coronary artery disease) June 24, 2021 4:36am Unknown Resolved Problem Lis t clean-up per request of Phys. EHR Cmte Depression June 24, 2021 4:36am Unknown Resolved Prob scooter List clean-up per request of Phys. EHR Cmte Fibromyalgia June 24, 2021 4:35am Unknown Resolved Pr oblem List clean-up per request of Phys. EHR Cmte Chronic kidney disease June 24, 2021 4:40am Unknown Res olved Problem List clean-up per request of Phys. EHR Cmte NSTEMI (non-ST elevated myocardial infarction) June 24, 2021 5:16am Unknown Resolved Prob scooter List clean-up per request of Phys. EHR Cmte GERD (gastroesophageal reflux disease) June 24, 2021 4:37am Unknown Resolved Problem Lis t clean-up per request of Phys. EHR Cmte HTN (hypertension) June 24, 2021 4:36am Unknown Resolve d Problem List clean-up per request of Phys. EHR Cmte Medications Medication Status Dose Units Route Directions Qty Days Refills S tart Date Stop Date End Date Reason(s) Instructions Adherence Temazepam 7.5 mg capsule Active 7.5 MG PO Daily at bedtim e as needed for sleep November 11, 2024 12:00am Primary insomnia Primary insomniaUnknownCarvedilol 12.5 mg oakkdtHfsppd98.5MGPOTwice dailyOctour [facility] 2024 12:00ammust administer with a meal/foodUnknownSucralfate 1 gram tablet Lanson5FLZTQdebp at bedtimeOctour [facility] of [facility] 2024 12:00amUnknownFamotidine 40 mg wqdwpkWnlvbv83YQFOTktubJteoibf 2024 12:00amUnknownIsosorbide Mononitrate 30 mg tablet extended release 24 xqZwgpqu79IYDPIwhjlEtrwwuw 2024 12:00am UnknownMetoclopramide Hcl 5 mg mpzsvpSjzscs2JQDJZejp times dailyCore[facility] 2024 12:00amUnknownHydralazine 100 mg ywlkaxWziser473CPPNJumow times daily November 27, 2024 12:00amUnknownFurosemide 20 mg jbcmhhBlpgej46INXSKyodaWshsklc 2024 12:00amUnknownNystatin 100,000 unit/gram oywawsFktoij4HXCIWBRYMSKCR Three times dailyOctour [facility] 2024 12:00amUnknownInsulin Lispro 100 unit/mL insulin cxzGaebxh4wobioyd scale doseSUBCUTUse as DirectedOctour lady of [facility] 2024 12:00amINJECT 2-10 UNITS UNDER THE SKIN IN THE MORNING AND 2-10 UNITS AT NOON AND 2-10 UNITS IN THE EVENING. INJECT WITH MEALS. 151-200=2 UNITS, 201-250-4 UNITS, 251-300=6 UNITS, 301-350=8 UNITS, 351-400=10 UNITS, OVER 400 CALL PROVIDER.UnknownPen Needle, Diabetic (Ultra-Thin Ii Ins Pen Adamant) 29 gauge x 1/2 needleActive0.[facility] 2024 12:00amUse to inject 1-4 times daily as directed.Cholecalciferol (Vitamin D3) 25 mcg (1,000 unit) rmzojkTwacum46SAZFJZpyptWnrcapi 2024 12:00amUnknownBlood-Glucose Sensor (Freestyle Violet 3 Sensor) deviceActive0.[facility] 2024 12:00amAs directedEmpagliflozin 25 mg gyzzjgNfnxiw15BQFUGbmqjNvgufjw 9th, 2025 12:00am UnknownSacubitril-Valsartan (Entresto) 24-26 mg hnlrufWqaiso9QAROCSdpud daily November 27, 2024 12:00amUnknownLosartan 50 mg ckbabbIpbdbijgdzkh58TQNGPmnoqWeb 2021 12:00amOctour [facility] 2024 2:17pmFurosemide 40 mg pwjsyjNenszexcfpde20MA PODailyMay 2021 12:00amOctour [facility] of [facility] 2024 2:04pmAtorvastatin 40 mg tablet Xcxvncxlojkp82RVVIEksenwpIoy 2021 12:00amMay 2021 11:27amHydrocodone- Acetaminophen 5-325 mg xuwqgnVfljrbqdlndc7LUKAHY0P as needed for PainMay 2021 12:00amOctour [facility] 2024 2:05pmGlipizide 10 mg wbkbyzMgxtcxkwhkju61MWYD DailyMa2021 12:00amMay 2021 11:27amAlprazolam 0.5 mg tablet Discontinued0.5MGPOThree times daily as needed for AnxietyMay 2021 12:00am November 27, 2024 1:58pmTemazepam 30 mg qoywcyuIzbosidhqplf51THDTWhtmbjpSim 2021 12:00amSept2024 12:57pmAmlodipine 10 mg vhsofmYzqeyuaznkxe59DE PODailyMay 2021 12:00amOctour [facility] 2024 1:59pmPantoprazole 40 mg tablet,delayed release (DR/EC)Tgtusy69IXFXTvyfy dailyMay 2021 12:00am UnknownMontelukast 10 mg xubqmcEiofgf12MFUXVnutuhiCsx 2021 12:00amUnknown Hydralazine 50 mg fhhxazVynktmtplwvy68GARCRjbma dailyMay 2021 12:00am November 27, 2024 2:05pmAspirin 81 mg ShigkmYapvqe18KRHVHfpseZxj 6th, 2022 12:00amUnknownParoxetine Hcl 40 mg krnzzfWuebbtdztgcm41AYTVYpmddGok 2021 12:00amOctober 2024 2:19pmOndansetron 4 mg tablet,mdowrlillqkqwqRczcjl7RRPG Q6H as needed for NauseaMa2021 12:00amUnknownMetformin 500 mg tablet extended release 24 ueXyokeyynyrji266XBRVBpswd dailyMay 2021 12:00amOctober 2024 2:18pmBupropion Hcl 150 mg tablet extended release 24 syEfyklu859TTEP DailyMay 2021 12:00amUnknownFluticasone Furoate 50 mcg/actuation Blister With ZsyngsVmkxym3GOBNHFMLZBUTJVuwisYrn 6th, 2022 12:00amUnknownTicagrelor (Brilinta) 90 mg DkljyoMozzyaesuhuo31MMUUAiktj evesc178661Qez 6th, 2022 12:00am November 27, 2024 2:19pmAtorvastatin 80 mg SunmqrNmofnb12ODBAEnqbcrv661036Pdp 6th, 2022 12:00amUnknownCarvedilol 12.5 mg HqmswzGbvndorsfpms23.5MGPOTwice daily with tnjng523167Rmq 6th, 2022 12:00amOctober 2024 2:00pmNitroglycerin 0.4 mg Tablet, SublingualActive0.1CIKKQZJOTFTEA3V as needed for Chest Dlmo79600VimJune 24, 2021 12:00amUnknownLiraglutide (Victoza 3-Dae) 0.6 mg/0.1 mL (18 mg/3 mL) pen injectorDiscontinued1.7KSJNPVDREnfqe81558Scg 7th, 2022 12:00amOctober 2024 2:06pm0.6mg sq daily x 1 week then 1.2 mg sq daily thereafter if well tolerated Medical Equipment Device Date Implanted Device Details Drug-eluting coronary artery stent, cou-lzaubajfrnlto-cbofncb-coated June 24, 2021 TEJAL: )[id number] Issuing Agency: [employer] Device Id: [id number] Lot Number: [id number]-twcabvl coronary artery stent, awl-lvmsikudhxrea-vcglpee-coatedMay 2021UDI: )[id number] Issuing Agency: [employer] Device Id: [id number] Lot Number: [id number] Procedures Procedure Date Performed Status Urine Culture December 12, 2024 active Relevant Diagnostic Tests and/or Laboratory Data Laboratory Results Test Collection Date/Time Result Date/Time Result Interpretation Reference Range Result Comment Performing Site B-Type Natriuretic Peptide December 12, 2024 6:40pm December 12, 2024 6:40pm 5783.0 pg/mL Above upper panic limits <=1800.0 RESULTS CALLED TO ALICE Zuñiga MD @[facility] at 2108 Acetaminophen LevelOct2024 6:40pmOctober 2024 6:40pm5.7 ug/mL Below low hwzubi55.0-30.0Salicylates LevelOctour [facility] of [facility] 2024 6:40pmOctober 2024 6:40pm<2.8 mg/dL<=19.9Troponin I High SensitivityOct2024 6:40pm December 12, 2024 6:40pm13.6 pg/mL4.0-51.3CUT-OFF POINTS HAVE BEEN ESTABLISHED BASED ON THE FOURTHUNIVERSAL DEFINITION OF MYOCARDIAL INFARCTION. THE UPPERREFERENCE LIMIT (URL) OF TROPONIN, DEFINED THE 99THPERCENTILE OF cTnI DISTRIBUTION IN A REFERENCE POPULATION,HAS BEEN CONFIRMED THE DECISION THRESHOLD FOR MIDIAGNOSIS.99TH PERCENTILE = 51.4 PG/MLNOTE: HIGH-SENSITIVITY TROPONIN ASSAY IS NOT INTENDED TO BEUSED IN ISOLATION BUT SHOULD BE INTERPRETED IN CONJUNCTIONWITH OTHER DIAGNOSTIC AND CLINICAL INFORMATION.Anion GapOct2024 6:40pmOctober 2024 6:40pm13.6Lactic Acid LevelOctober 2024 6:40pmOctober 2024 6:40pm1.7 mmol/L0.4-2.0AmmoniaOctober 2024 6:40pmOctober 2024 6:40pm<10 umol/LBelow low exdmhg16-21Qlqrhvwrb # (Auto) December 12, 2024 6:40pmOctober 2024 6:40pm0.0 10 3/uL0.0-0.1Urine Culture ReflexedOctober 2024 6:56pmYES-FRMCFolateOctober 2024 5:31am December 13, 2024 5:31am19.80 ng/mL8.60-58.90FerritinOct2024 5:31am December 13, 2024 5:84it952.0 ng/mL8.0-252.0Iron SaturationOct2024 5:31amOct2024 5:31am20.4 %Anion GapOct2024 5:31amOctober 2024 5:31am11.2HematocritOctober 2024 5:31amOct2024 5:31am25.6 %Below low .0-48.0Albumin/Globulin RatioOctober 2024 6:40pmOctober 2024 6:40pm0.8Basophils (%) (Auto)December 12, 2024 6:40pm December 12, 2024 6:40pm0.4 %0.2-2.0Urine Other CastsOctober 2024 6:56pm NONE SEEN #/LPFNONE SEENIron LevelOct2024 5:31amOct2024 5:31am56.0 ug/dL50.0-170.0Albumin/Globulin RatioOctober 2024 5:31amOctober 2024 5:31am0.8HemoglobinOct2024 5:31amOct2024 5:31am 7.9 g/dLBelow low .0-16.0AlbuminOctober 2024 6:40pmOctober 2024 6:40pm2.8 g/dLBelow low normal3.4-5.0Eosinophils # (Auto)December 12, 2024 6:40pmOctober 2024 6:40pm0.1 10 3/uL0.0-0.7Urine Other CrystalsOctober 2024 6:56pmNone Seen #/HPFNone SeenTotal Iron Binding CapacityOctober 2024 5:31amOctober 2024 5:03sm240.0 ug/dL250.0-450.0AlbuminOctober 2024 5:31amOctober 2024 5:31am2.7 g/dLBelow low normal3.4-5.0Mean Corpuscular HemoglobinOctober 2024 5:31amOctober 2024 5:31am32.9 pg 26.7-34.0Alkaline PhosphataseOctober 2024 6:40pmOctober 2024 6:40pm 75 U/O87-746Edbtwtwnorn (%) (Auto)December 12, 2024 6:40pmOctober 2024 6:40pm1.5 %0.9-7.0Urine BacteriaOctober 2024 6:56pmLARGE #/HPFAbnormal (applies to non-numeric results)NONE SEENAlkaline PhosphataseOct2024 5:31amOctober 2024 5:31am67 U/L56-116Caji Corpuscular Hemoglobin Concent December 13, 2024 5:31amOctober 2024 5:31am30.9 g/dL29.9-35.2Alanine Aminotransferase (ALT/SGPT)December 12, 2024 6:40pmOctober 2024 6:40pm25 U/K50-89RhuqbwzxrqZhmgocu 2024 6:40pmOctober 2024 6:40pm25.6 %Below low wyccto14.0-48.0Urine BilirubinOctober 2024 6:56pmNEGATIVENEGATIVE Alanine Aminotransferase (ALT/SGPT)December 13, 2024 5:31amOct2024 5:31am19 U/Q84-53Rdge Corpuscular VolumeOct2024 5:31amOct2024 5:07rv569.7 fLAbove high sclotq06.0-99.0Aspartate Amino Transf (AST/SGOT) December 12, 2024 6:40pmOct2024 6:40pm9 U/LBelow low qpybqn08-82 HemoglobinOct2024 6:40pmOct2024 6:40pm8.0 g/dLBelow low cazuds09.0-16.0Urine Occult BloodOct2024 6:56pmNEGATIVENEGATIVE Aspartate Amino Transf (AST/SGOT)December 13, 2024 5:31amOct2024 5:31am11 U/LBelow low -63Tgns Platelet VolumeOct2024 5:31am December 13, 2024 5:31am10.5 fL9.5-13.5BUN/Creatinine RatioOct2024 6:40pmOct2024 6:40pm16.2Immature Granulocyte # (Auto)December 12, 2024 6:40pmOct2024 6:40pm0.02 10 3/uL0.00-0.03Urine AppearanceOct2024 6:56pmSL CLOUDYCLEARBUN/Creatinine RatioOct2024 5:31am December 13, 2024 5:31am15.8Platelet CountOct2024 5:31amOct2024 5:37ya618 10 3/sT591-425Garvb Urea NitrogenOct2024 6:40pm December 12, 2024 6:40pm48.0 mg/dLAbove high normal7.0-18.0Immature Granulocyte % (Auto)December 12, 2024 6:40pmOct2024 6:40pm0.2 %0.0-0.5Urine ColorOct2024 6:56pmLT. YELLOWYELLOWBlood Urea NitrogenOct2024 5:31amOctober 2024 5:31am41.0 mg/dLAbove high normal7.0-18.0Red Blood CountOct2024 5:31amOct2024 5:31am2.40 10 6/uLBelow low normal4.20-5.40Calcium LevelOct2024 6:40pmOctober 2024 6:40pm 9.1 mg/dL8.5-10.1Lymphocytes # (Auto)December 12, 2024 6:40pmOctober 2024 6:40pm1.0 10 3/uLBelow low normal1.2-3.8Urine Glucose (UA)December 12, 2024 6:56pm>=1000 mg/dLAbnormal (applies to non-numeric results)NEGATIVECalcium Level December 13, 2024 5:31amOct2024 5:31am9.4 mg/dL8.5-10.1Red Cell Distribution WidthOct2024 5:31amOct2024 5:31am14.4 % 11.0-15.0Chloride LevelOct2024 6:40pmOctober 2024 6:23qx249 mmol/T57-159Hlrhorumvxn (%) (Auto)December 12, 2024 6:40pmOctober 2024 6:40pm10.3 %Below low cbyghu86.5-60.0Urine KetonesOctober 2024 6:56pm NEGATIVE mg/dLNEGATIVEChloride LevelOct2024 5:31amOct2024 5:20dw522 mmol/M76-922Hpmnidlvd White Blood CountOct2024 5:31am December 13, 2024 5:31am8.5 10 3/uL4.0-11.0Carbon Dioxide LevelOctober 2024 6:40pmOctober 2024 6:40pm30.4 mmol/L21.0-32.0Mean Corpuscular HemoglobinOct2024 6:40pmOctober 2024 6:40pm33.1 pg26.7-34.0 Urine Leukocyte EsteraseOctober 2024 6:56pmMODERATEAbnormal (applies to non-numeric results)NEGATIVECarbon Dioxide LevelOctober 2024 5:31amOctober 2024 5:31am30.2 mmol/L21.0-32.0CreatinineOct2024 6:40pmOctober 2024 6:40pm2.96 mg/dLAbove high normal0.55-1.02Mean Corpuscular Hemoglobin ConcentOct2024 6:40pmOctober 2024 6:40pm31.3 g/dL29.9-35.2Urine MucusOctober 2024 6:56pmSMALLAbnormal (applies to non-numeric results)NONE SEENCreatinineOctober 2024 5:31amOctober 2024 5:31am2.59 mg/dLAbove high normal0.55-1.02Estimated GFR ()December 12, 2024 6:40pm December 12, 2024 6:13ke84Hpouo low normal>=60 mL/min/1.73m 2Mean Corpuscular VolumeOct2024 6:40pmOctober 2024 6:72zw421.8 fLAbove high .0-99.0Urine NitriteOct2024 6:56pmPOSITIVEAbnormal (applies to non-numeric results)NEGATIVEEstimated GFR ()December 13, 2024 5:31amOctober 2024 5:50su34Ubmsw low normal>=60 mL/min/1.73m 2 Estimated GFR (Non- AmericanOct2024 6:40pmOctober 2024 6:60ss08Cldys low normal>=60 mL/min/1.73m 2Monocytes # (Auto)December 12, 2024 6:40pmOctober 2024 6:40pm0.8 10 3/uL0.3-0.8Urine pHOctober 2024 6:56pm5.55.0-9.0Estimated GFR (Non- AmericanOctober 2024 5:31am December 13, 2024 5:61yj59Pxpui low normal>=60 mL/min/1.73m 2GlobulinOct2024 6:40pmOctober 2024 6:40pm3.3 g/dLMonocytes (%) (Auto)December 12, 2024 6:40pmOctober 2024 6:40pm8.5 %1.7-12.0Urine ProteinOctober 2024 6:56pm30 mg/dLAbnormal (applies to non-numeric results)NEG/TRACE GlobulinOctober 2024 5:31amOctober 2024 5:31am3.3 g/dLGlucose Level December 12, 2024 6:40pmOctober 2024 6:12qu486 mg/dLAbove high normal 74-106Mean Platelet VolumeOctober 2024 6:40pmOctober 2024 6:40pm10.2 fL9.5-13.5Urine RBCOctober 2024 6:56pmNONE SEEN #/HPF0-2Glucose Level December 13, 2024 5:31amOct2024 5:14yu847 mg/dLAbove high normal 74-106Potassium LevelOctober 2024 6:40pmOctober 2024 6:40pm5.0 mmol/L3.5-5.1Neutrophils # (Auto)December 12, 2024 6:40pmOctober 2024 6:40pm7.6 10 3/uLAbove high normal1.4-6.5Urine Specific GravityOctober 2024 6:56pm1.0101.005-1.025Potassium LevelOctober 2024 5:31amOct2024 5:31am4.4 mmol/L3.5-5.1Sodium LevelOctober 2024 6:40pmOctober 2024 6:68rp666 mmol/G462-763Bosqjccpmxj (%) (Auto)December 12, 2024 6:40pm December 12, 2024 6:40pm79.1 %Above high .0-75.0Urine Squamous Epithelial CellsOctober 2024 6:56pmMODERATE #/LPFAbnormal (applies to non- numeric results)NONE/RARESodium LevelOctober 2024 5:31amOctober 2024 5:33db264 mmol/C091-766Joxti BilirubinOctober 2024 6:40pmOctober 2024 6:40pm0.3 mg/dL0.2-1.0Platelet CountOctober 2024 6:40pmOctober 2024 6:46nl484 10 3/vC512-048Auxjb UrobilinogenOctober 2024 6:56pm0.2 EU/dL0.2-1.0Total BilirubinOctober 2024 5:31amOctober 2024 5:31am0.4 mg/dL0.2-1.0Total ProteinOctober 2024 6:40pmOctober 2024 6:40pm6.1 g/dLBelow low normal6.4-8.2Red Blood CountOctober 2024 6:40pmOctober 2024 6:40pm2.42 10 6/uLBelow low normal4.20-5.40Macrocytosis 1+Urine WBCOctober 2024 6:56pm>100 #/HPFAbnormal (applies to non-numeric results)NONE SEEN Total ProteinOct2024 5:31amOct2024 5:31am6.0 g/dLBelow low normal6.4-8.2Red Cell Distribution WidthOctober 2024 6:40pmOctober 2024 6:40pm14.1 %11.0-15.0Urine YeastOctober 2024 6:56pmSEENAbnormal (applies to non-numeric results)NONE SEENModerate budding yeastCorrected White Blood CountOctober 2024 6:40pmOctober 2024 6:40pm9.5 10 3/uL4.0-11.0 Advance Directives Advance Directive Response Recorded Date/ Time Advance Directives No June 24, 2021 1:18am Insurance Providers Guarantor Elif Shah Address [address] [place], [place] [address]Contact Info.Home Phone: Payer Group Member ID Coverage Type Subscriber Relationship to Subscriber Effective Date Expiration Date Medicaid [id number] Isrrael Shah Id: [id number] [address] [place] [address] Home Phone: SelfMedicare [id number] A Alyssa Id: [id number] [address] [place] [address] Home Phone: SelfAnthem [facility] [id number] Isrrael Shah Id: [id number] [address] [place] [address] Home Phone: Self Encounters Encounter Location(s) Arrival/Admit Date Discharge/Departure Date Discharge/Departure Disposition Provider(s) Non-patient / Non-visit -[facility] O ctober 2024 6:40pm Karin Richardsoneparted [facility] 2024 6:57pmDischarged to home care or self care (routine discharge)Karin Richardson-patient / Ej[facility]erreg-[facility]October 2024 5:31amElizabeth Mosley MD Plan of Treatment Future Tests Future scheduled test information is unavailable Pending Tests Test Name Ordered Date Scheduled Date Urine Culture December 12, 2024 6:56pm Future Visits Future appointment information is unavailable Future Procedures Procedure Name Ordered Date Scheduled Date Urine Culture December 13, 2024 5:30am Octobe r 2024 6:56pm Future Medications Future medication information is unavailable Patient Instructions Patient instructions are unavailable
[2024-12-13] MEDS: HYDRALAZINE HCL 50 MG TABLET PO (21:30)
[2024-12-13] MEDS: BACLOFEN 10 MG TABLET PO (21:30)
[2024-12-13] MEDS: CARVEDILOL 12.5 MG TABLET PO (21:30)
[2024-12-13] MEDS: TEMAZEPAM 15 MG CAPSULE PO (21:30)
[2024-12-13 21:58] LABS: A. calcoaceticus-baumannii Cpx NOT DETECTED (NOT DETECTE); Bacteroides fragilis NOT DETECTED (NOT DETECTE); Candida auris NOT DETECTED (NOT DETECTE); Candida glabrata NOT DETECTED (NOT DETECTE); Enterobacterales NOT DETECTED (NOT DETECTE); Enterococcus faecalis NOT DETECTED (NOT DETECTE); Enterococcus faecium NOT DETECTED (NOT DETECTE); Klebsiella aerogenes NOT DETECTED (NOT DETECTE); Klebsiella pneumoniae group NOT DETECTED (NOT DETECTE); Proteus spp. NOT DETECTED (NOT DETECTE); Salmonella spp. NOT DETECTED (NOT DETECTE); Serratia marcescens NOT DETECTED (NOT DETECTE); Source BLOOD; Staphylococcus epidermidis NOT DETECTED (NOT DETECTE); Staphylococcus lugdunensis NOT DETECTED (NOT DETECTE); Stenotrophomonas maltophilia NOT DETECTED (NOT DETECTE); Streptococcus pyogenes NOT DETECTED (NOT DETECTE); Streptococcus spp. NOT DETECTED (NOT DETECTE)
[2024-12-13 23:21] LABS: Staphylococcus spp. DETECTED (NOT DETECTE)
[2024-12-14] VITALS (23 sets, daily range): BP systolic 144–210; BP diastolic 55–70; PULSE 53–80; TEMP 36.7–36.9; O2SAT 94–988
[2024-12-14] MEDS: VANCOMYCIN HCL 1,000 MG in 0.9 % SODIUM CHLORIDE 250 ML 250 MG IV (01:49)
[2024-12-14] MEDS: PANTOPRAZOLE SODIUM 40 MG TABLET.DR PO (05:45)
[2024-12-14 07:07] LABS: Vitamin B12 519 pg/mL (232-1245)
[2024-12-14] MEDS: HYDRALAZINE HCL 20 MG/ML VIAL 10 MG IVP (07:51)
[2024-12-14] MEDS: ACETAMINOPHEN 325 MG TABLET 650 MG PO ×2 (07:52→21:51)
[2024-12-14] MEDS: FUROSEMIDE 40 MG TABLET PO (09:33)
[2024-12-14] MEDS: ASPIRIN 81 MG TABLET.DR PO (09:33)
[2024-12-14] MEDS: BUPROPION HCL 150 MG XL TABLET 24H PO (09:33)
[2024-12-14] MEDS: PAROXETINE HCL 20 MG TABLET 40 MG PO (09:33)
[2024-12-14] MEDS: AMLODIPINE BESYLATE 5 MG TABLET PO ×2 (09:33→15:10)
[2024-12-14] MEDS: CARVEDILOL 12.5 MG TABLET PO ×2 (09:33→21:49)
[2024-12-14] MEDS: HYDRALAZINE HCL 50 MG TABLET PO ×2 (09:33→21:48)
[2024-12-14] MEDS: CHOLECALCIFEROL (VITAMIN D3) 25 MCG/1,000 UNITS TABLET PO (09:34)
--- NOTE | 2024-12-14 10:14 | PM.IMPN1 ---
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 1. 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 Positive blood culture, staphylococcus aureus - 1 positive, possible contamination however given persistent nausea will treat for now - check echocardiogram - continue vancomycin 3. h/o s/p R EULOGIO 2 weeks ago, HTN, diabetes mellitus - hold antihyperglycemics, SSI while inpatient - continue coreg, hydralazine, amlodipine - continue baclofen Diet: Cardiac Daily Labs: CBC, BMP Lines/Drains: PIV DVT ppx: Lovenox Code status: Full Status: inpatient for antibiotics, UTI with history of MDRO Internal Medicine - PN: Subj Subjective Interval history: Feels unwell today, reports episode of nausea and emesis yesterday evening. Has not eaten food yet today but is willing to try. One blood culture resulted positive Staphylococcus species, started on vancomycin overnight. Last bowel movement was yesterday per nursing. Exam Narrative Exam Narrative: General: cooperative and tired appearing Orientation: alert, awake and oriented x2 Head: normal to inspection Neck: normal visual inspection Cardio: no JVD, regular rate, regular rhythm Chest palpation & inspection: normal inspection of the chest Resp Effort & Inspection: normal respiratory effort Abd: soft, non-tender, non-distended, heredia catheter in place Extremities: Warm well perfused, no edema Constitutional Vital Signs, click to edit/add: Last Vital Signs Temp 98.0 F 12/14/24 07:58 Pulse 80 10/26/25 08:23 Resp 18 12/14/24 07:59 BP 149/57 H 12/14/24 09:35 Pulse Ox 95 12/14/24 07:58 O2 Del Method Nasal Cannula 12/14/24 07:58 O2 Flow Rate 2 12/14/24 07:58 Internal Medicine - PN: Obj Da Labs Labs: Laboratory Results - last 24 hr 12/13/24 12/13/24 12/13/24 05:31 11:29 16:21 Vitamin B12 519 Specimen Source A.calcoaceticus-baumannii cmplx PCR Bacteroides fragilis Heidy albicans (PCR) Heidy auris (PCR) C. glabrata (PCR) C. krusei (PCR) C. parapsilosis (PCR) C. tropicalis (PCR) C. neoform/gattii (PCR) Enterobacterales (PCR) E. cloacae complex PCR Enterococc faecalis PCR Enterococc faecium PCR E. coli (PCR) H. influenzae (PCR) Klebsiella aerogenes (PCR) Klebsiella oxytoca PCR K. pneumoniae group (PCR) List. monocytogenes PCR N. meningitidis (PCR) Proteus spp. (copies/mL) Salmonella spp. (PCR) Serratia marcescens PCR Staphylococcus sp PCR Staph aureus (PCR) mecA/C & MREJ Resist Gene mecA/C-Methicil Resis Gene mcr-1 Colistin Res Gene PCR Staph epidermidis (PCR) Staph lugdunensis (TEM-PCR) S. maltophilia (PCR) Streptococcus sp PCR Strep agalactiae (PCR) Strep pneumoniae (PCR) S. pyogenes (PCR) P. aeruginosa (PCR) Annalee/B-Vanco Res Genes blaIMP Car res Gene PCR KPC (blaKPC) Detect PCR NDM (blaNDM) Detect PCR OXA-48 Carbapenem Resis Gene (PCR) blaVIM Car Res Gene PCR CTX-M ESBL (PCR) POC Glucose 247 H 190 H 12/13/24 12/13/24 12/14/24 21:15 21:58 07:57 Vitamin B12 Specimen Source Blood A.calcoaceticus-baumannii cmplx PCR Not detected Bacteroides fragilis Not detected Heidy albicans (PCR) Not detected Heidy auris (PCR) Not detected C. glabrata (PCR) Not detected C. krusei (PCR) Not detected C. parapsilosis (PCR) Not detected C. tropicalis (PCR) Not detected C. neoform/gattii (PCR) Not detected Enterobacterales (PCR) Not detected E. cloacae complex PCR Not detected Enterococc faecalis PCR Not detected Enterococc faecium PCR Not detected E. coli (PCR) Not detected H. influenzae (PCR) Not detected Klebsiella aerogenes (PCR) Not detected Klebsiella oxytoca PCR Not detected K. pneumoniae group (PCR) Not detected List. monocytogenes PCR Not detected N. meningitidis (PCR) Not detected Proteus spp. (copies/mL) Not detected Salmonella spp. (PCR) Not detected Serratia marcescens PCR Not detected Staphylococcus sp PCR Detected A* Staph aureus (PCR) Not detected mecA/C & MREJ Resist Gene Not applicable mecA/C-Methicil Resis Gene Not applicable mcr-1 Colistin Res Gene PCR Not applicable Staph epidermidis (PCR) Not detected Staph lugdunensis (TEM-PCR) Not detected S. maltophilia (PCR) Not detected Streptococcus sp PCR Not detected Strep agalactiae (PCR) Not detected Strep pneumoniae (PCR) Not detected S. pyogenes (PCR) Not detected P. aeruginosa (PCR) Not detected Annalee/B-Vanco Res Genes Not applicable blaIMP Car res Gene PCR Not applicable KPC (blaKPC) Detect PCR Not applicable NDM (blaNDM) Detect PCR Not applicable OXA-48 Carbapenem Resis Gene (PCR) Not applicable blaVIM Car Res Gene PCR Not applicable CTX-M ESBL (PCR) Not applicable POC Glucose 164 H 184 H Urinary Catheter Management Urinary Catheter Management Pure Wick: Cath placed during this visit: yes Urethral indwelling: No Insertion date: 12/14/24 Insertion time: 05:47
[2024-12-14 10:18] LABS: Hematocrit 26.1 % (36.0-48.0); Hemoglobin 7.9 g/dL (12.0-16.0); Immature Granulocytes Abs Auto 0.02 10^3/uL (0.00-0.03); Immature Granulocytes Pct Auto 0.3 % (0.0-0.5); Lymphocytes Absolute Auto 1.1 10^3/uL (1.2-3.8); Mean Corpuscular HGB Conc 30.3 g/dL (29.9-35.2); Mean Corpuscular Hemoglobin 32.9 pg (26.7-34.0); Platelet Count 286 10^3/uL (150-450); White Blood Count 6.8 10^3/uL (4.0-11.0)
[2024-12-14 10:35] LABS: Anion Gap 11.8; Blood Urea Nitrogen 36.0 mg/dL (7.0-18.0); Calcium 9.2 mg/dL (8.5-10.1); Carbon Dioxide 30.6 mmol/L (21.0-32.0); Chloride 108 mmol/L (98-107); Estimated GFR (African America 23 (>=60 mL/min/1.73m^2); Estimated GFR (Non-African Ame 19 (>=60 mL/min/1.73m^2); Glucose 150 mg/dL (74-106); Potassium 4.4 mmol/L (3.5-5.1); Sodium 146 mmol/L (136-145)
[2024-12-14 10:38] LABS: Red Blood Count 2.40 10^6/uL (4.20-5.40)
[2024-12-14 10:39] LABS: Mean Corpuscular Volume 108.8 fL (81.0-99.0)
[2024-12-14] MEDS: INSULIN ASPART 300 UNIT/3 ML PEN SUBQ ×3 (12:08→21:48)
--- OUTSIDE RECORDS SUMMARY | 2024-12-14 15:23 | XMS_ITS | Clinical Summary ---
Author Organization [facility] Address [address] [facility] [place] [address] Care Team Providers Care Cordwainer Name Role Phone Unavailable Primary Care Provider Unavailabl e Source Comments The following information is NOT included in Care Everywhere downloads:Psychiatric notes, ECG results, Cardiac Rehab notes, Pulmonary Function notes, data from SmartForms (includes but not limited toPregnancy data,audiograms, eye exams, pre-surgical evaluation notes, well-child exam data).[facility] Social History Tobacco UseTypesPacks/DayYears UsedDateSmoking Tobacco: Never Assessed CommentsUnknownSex and Gender InformationValueDate RecordedSex Assigned at Not on fileLegal IeqSbyohi94/07/2022 10:47 AM EDTGender IdentityNot on file Sexual OrientationNot on file Last Filed Vital Signs Vital SignReadingTime TakenCommentsBlood Xobqaipk830/6105 7:30 PM EDT Btpat3416 7:30 PM EDTTemperature--Respiratory Ysdk4172 7:30 PM EDTOxygen Wrtiwbykse53%06/23/2021 7:30 PM EDTInhaled Oxygen Concentration-- Weight--Height--Body Mass Index-- Plan of Treatment Health MaintenanceDue DateLast DoneCommentsHepatitis C Jqhlivfq91/22/1966Tdap Fkilrsd0307/10/1965Hepatitis A (HAV) Vaccine (optional start 19+ years)07/10/1966 Pneumococcal Vaccine(s) (50+ yrs) (1 of 1 - PCV)07/10/1997Shingles (RZV) Vaccine (1 of 2)07/10/1997Annual Wellness Visit (G0438)02/19/1999Hepatitis B (HBV) Vaccine (optional start 60+ years)2007one Lhynzoxneros36/22/2013RSV vaccine (adult) (1 - 1-dose 75+ series)3COVID-19 Vaccine ( season)2024Influenza Vaccine (#1)2024Pap SmearDiscontinued Insurance
--- OUTSIDE RECORDS SUMMARY | 2024-12-14 15:24 | XMS_ITS | Clinical Summary ---
Author Organization [facility] Address [address] [place] [address] Phone Care Team Providers Care Knot Bumper Name Role Phone Unavailable Primary Care Provider Unavailabl e Social History Tobacco UseTypesPacks/DayYears UsedDateSmoking Tobacco: Never Assessed CommentsUnknownSex and Gender InformationValueDate RecordedSex Assigned at Not on fileLegal EczKsyxxl51/26/2022 6:50 AM ESTGender IdentityNot on fileSexual OrientationNot on file Plan of Treatment Health MaintenanceDue DateLast DoneCommentsLipid Panel1947Yearly Adult Diphhuxl12/22/1946Hepatitis C Xqqipqbnh11/22/1966DTaP/Tdap/Td Vaccines (1 - Tdap)07/10/1969Pneumococcal Vaccine (1 of [...]
--- OUTSIDE RECORDS SUMMARY | 2024-12-14 15:24 | XMS_ITS | Clinical Summary ---
Author Organization [facility] Address [address] [place] [address] Care Team Providers Care Funeral Pre Arrangement Specialist Name Role Phone Amador Lopez MD Primary Care Provider [phone] Allergies Active AllergyReactionsCriticalityNoted DateCommentsClindamycin HclAnaphylaxis 05/26/2016Cyclobenzaprine FixAaiy53/23/3410NljncagooEadi47/08/2013Iodine And Iodide Containing ClfodqkcUafj19/23/2308OfksynlefzpIasy91/23/2013 QfvabiwgtnkqzyraVnicfmh77/23/2013 Medications MedicationSigDispense QuantityRefillsLast FilledStart DateEnd DateStat medical supply, miscellaneous (COMMODE PAIL MISC) USE RYOOZPSB293/28/2018Active VENTOLIN HFA 90 mcg/actuation inhaler 05/24/2017Active amLODIPine (NORVASC) 10 mg tablet Take 1 tablet by mouth once daily.09/12/2017Active atorvastatin (LIPITOR) 40 mg tablet Take 1 tablet by mouth daily at bedtime.07/10/2017Active ONETOUCH ULTRA BLUE TEST STRIP test strip twice daily. TEST TWICE BJCCT992Active SilverskyTOUCH ULTRA2 monitoring kit twice daily. TEST TWICE LICUT390Active STOOL SOFTENER 100 mg capsule Take 100 [...] 30 gauge misc twice daily. TEST TWICE FGLGL705Active losartan-hydrochlorothiazide (HYZAAR) 100-25 mg per tablet Take [...] number is lower riskNot on file01/27/2020Data from: https://www.neighborhoodatlas.medicine.[facility].edu/. Last address used for calculationNot on file01/27/2020CommentsNoSex and Gender Information ValueDate RecordedSex Assigned at BirthNot on fileLegal YygAzkvly35/24/2018 2:34 PM EDTGender IdentityNot on fileSexual OrientationNot on file Last Filed Vital Signs Vital SignReadingTime TakenCommentsBlood Rkxlwtye838/4608 11:28 AM EDT Hlkph9968 11:28 AM EDTTemperature--Respiratory Nznp4091 11:28 AM EDTOxygen Vnqsllrehz78%09/19/2017 11:28 AM EDTInhaled Oxygen Concentration-- Bujhbb33.4 kg (206 lb)09/19/2017 11:28 AM CRPHwctkx619.6 cm (5' 4 )09/19/2017 11:28 AM EDTBody Mass Index35.3608 11:28 AM EDT Plan of Treatment Health MaintenanceDue DateLast DoneCommentsAnxiety Yjpstsuro91/22/1966Depression Nteccvgei12/22/1966Hepatitis C Xgvxpwcoi81/22/1966DTaP,Tdap,Td Vaccine (1 - Tdap)07/10/1966Diabetes Qdzyaudor26/22/1993Pneumococcal Vaccine: 50+ (1 of 1 - PCV)07/10/1997Shingrix Vaccine (1 of 2)07/10/1997Bone Density Screening 07/10/2012RSV Vaccine (1 - 1-dose 75+ series)07/10/2022dvance Directive Orwsqyejpq90/01/2025ovid-19 Vaccine (1 - 2024- season)2024Influenza Vaccine (#1)/07/2016, 11/18/2015, 11/04/2014 Insurance * Guarantor: Elif ShahAccount TypeRelation to PatientDate of BirthPhone Billing AddressPersonal/GkjoztSsin[birth year][address] [address] Care Teams Team MemberRelationshipSpecialtyStart DateEnd Date Amador Lopez MD [address] [place] [place] [address] [facility]09/19/17
--- OUTSIDE RECORDS SUMMARY | 2024-12-14 15:24 | XMS_ITS | Encounter Summary ---
Author Organization [employer] [facility] [employer] Address [id number] [address] [place] [address] Care Team Providers Care President & Ceo Name Role Phone Amador Lopez MD Primary Care Provider [phone] Encounter Details DateTypeDepartmentCare Team (Latest Contact Info)Pjstxwmkdck16/22/2025Travel Social History Tobacco UseTypesPacks/DayYears UsedDateSmoking Tobacco: NeverSmokeless Tobacco: NeverAlcohol UseStandard Drinks/WeekCommentsNot Currently0 (1 standard drink = 0.6 oz pure alcohol)[facility] UtilitiesAnswerDate RecordedIn the past 12 months has the electric, gas, oil, or water company threatened to shut off services in your home?No11/26/2024PHQ-2AnswerDate RecordedTotal Kfvfb281PRAPARE - TransportationAnswerDate RecordedIn the past 12 months, [...] a part of a household?No11/26/2024hildcareAnswerDate RecordedChildcareUnknown 07/31/2018EmploymentAnswerDate ZeuhjabsGnplzqrietTddyhff31/12/2019Hunger ScreeningAnswerDate RecordedWithin the past 12 months we worried whether our food would run out before we got money to buy more.Never True12/10/2024Within the past 12 months the food we bought just didn't last and we didn't have money to get more.Never True12/10/2024CommentsNoSex and Gender Information ValueDate RecordedSex Assigned at BirthNot on fileLegal XuqYvyjnx47/06/2015 11:56 AM EDTGender IdentityNot on fileSexual OrientationNot on filedocumented as of this encounter Plan of Treatment DateTypeDepartmentCare Team (Latest Contact Info)Zcnnqqnesqo92/26/2025 1:00 PM ESTOffice Visit [facility] [address] [place] [address] Kirby Andersen MD [address] [place], [place] [id number] documented as of this encounter Goals GoalPatient [...] Care Teams Team MemberRelationshipSpecialtyStart DateEnd Date Amador oLpez MD [address] [place] [address] PCP - GeneralFamily Gjftxvsk80/8/25documented as of this encounter
--- OUTSIDE RECORDS SUMMARY | 2024-12-14 15:24 | XMS_ITS | Clinical Summary ---
Author Organization [facility] Address [facility] [place] [id number] [address] [place] [address] Care Team Providers Care Second Time Worker Name Role Phone Amador Lopez MD Primary Care Provider [phone] Allergies Active AllergyReactionsCriticalityNoted DateCommentsClindamycinAnaphylaxis,Other (See Comments)High05/26/2016CodeineHives,Other (See Comments)12/27/2021 CyclobenzaprineHives,Itching,Other (See Comments),VorwZsascs80/23/2013 CebsvxnftadZqstbrbx53/02/3150Uvi7406/02/2022Ethinyl EstradiolOther (See Comments) 09/24/2024ExenatideGI Disturbance,QbwbPjwo50/08/2013 Other Reaction(s): itching Iodinated Contrast MediaHives,Other (See Comments)02/06/2014 Other Reaction(s): itching/rash Gxmznwhomnke57/14/2023LevonorgestrelOther (See Comments)09/24/2024LiraglutideGI Mrtybdnrjyf72/28/7808JllqeRbjwKao38/23/2013PenicillinsFacial Swelling,Hives, Itching,Other (See Comments),HzqfFqgx19/23/2013ProchlorperazineOther (See Comments)12/11/2012SucralfateOther (See Comments)12/22/20195974Mffnmmllhy92/14/2023 Other Reaction(s): sickness TrazodoneGI Dbrhqjtuasc02/30/2020 Medications MedicationSigDispense QuantityRefillsLast FilledStart DateEnd DateStatus PARoxetine [...] 1 tablet by mouth at bedtime nor gbyzoe5412/01/2024Discontinued(Stop Taking at Discharge) temazepam (RESTORIL) 7.5 mg capsule Take 1 capsule (7.5 mg total) by mouth nightly as needed for sleep.12/01/2024 Discontinued(Stop Taking at Discharge) ceFUROxime (CEFTIN) 250 mg tablet Take 1 tablet (250 mg total) by mouth every 12 (twelve) hours for 12 doses. /Expired oxyCODONE (ROXICODONE) 5 mg immediate release tablet Indications:Closed fracture of right hip, initial encounter ([facility])Take 1 tablet (5 mg total) by mouth every 6 (six) hours as needed for pain for up to 3 days. Max Daily Amount: 20 mg 12 tablet Expired Active Problems ProblemNoted DateDiagnosed DateHistory of right hip tpxygrpbyigcokdk75/22/2025 Age-related osteoporosis with current pathological fracture with routine healing 12/10/2024losed displaced fracture of right femoral neck11/26/2024Urinary tract infection with ufkpduqmk92/26/2025Pneumonia due to infectious afppxcxi00/26/2025 Bnckdaqp68/26/2025History of rwrigjl3405/14/2024hronic diastolic congestive heart qudqkdm6805/06/2024Other fracture of unspecified lumbar vertebra, subsequent encounter for fracture with routine dhguhfb6805/06/2024Essential hypertension 05/06/2024Iron deficiency anemia, hkcbojpkhbw07/18/2025Type 2 diabetes mellitus with stage 3b chronic kidney disease, with long-term current use of insulin 05/06/2024Personal history of transient ischemic attack (TIA), and cerebral infarction without residual rtshvdec78/18/2025ute combined systolic and diastolic heart bdnspwo4605/06/2024Pure wlncqzkaskqhhwtdzibs42/18/2025Recurrent major depressive disorder, in yxguehbnm67/18/2025Gastroesophageal reflux disease 05/06/2024Old myocardial jmmfifasfz07/18/2025Generalized anxiety disorder 05/06/20247827Hnaubuiqtppw42/18/2025 Encounters DateTypeDepartmentCare RqrcVkdvyhyqhpm48/22/2025 2:00 PM EDT - 12/10/2024 11:59 PM EDTHospital Encounter [facility] [address] [place] [phone] S/P hip hemiarthroplasty Discharge Disposition: Home12/10/2024 2:00 PM EDTOffice Visit [facility] [address] [place] [address] [place] [phone] iKrby Andersen MD Age-related osteoporosis with current pathological fracture with routine healing (Primary Dx); History of right hip hemiarthroplasty; Closed fracture of neck of right femur, ofcwyub4712/10/20241690Fnurls91/21/2025Orders Only [facility] Orthopedics/Trauma and Adult Reconstruction [address] [place] [address] Maninder Byrd RN S/P hip hemiarthroplasty (Primary Dx)11/27/2024 12:20 PM EDTAnesthesia Event [facility] - Surgery [address] [place] [address] Brent Collado MD Brock, Austin, SRNA 11/27/2024 11:40 AM EDT - 11/27/2024 2:51 PM EDTSurgery [facility] - Surgery [address] [place] [address] Kirby Andersen MD HEMIARTHROPLASTY HIP [29385 (CPT??)]11/27/20249706Mpwkre11/08/2025 4:15 PM EDT - 12/01/2024 3:42 PM EDTHospital Encounter [facility] - GEN 7 Acute [address] [place] [address] Gian Green, Gonzalo Shoemaker MD Namo, Susan, MD Closed fracture of right hip, initial encounter ([facility]) (Primary Dx); Type 2 diabetes mellitus with stage 3b chronic kidney disease, with long-term current use of insulin ([facility]) Discharge Disposition: [facility]11/26/2024 12:38 PM EDT - 11/26/2024 3:[address] [address] [place] [address] Eulalio Danielle MD Closed fracture of right hip, initial encounter ([facility]) (Primary Dx) Discharge Disposition: Institution Not Defined Hdzygodiz67/08/2025Travel 10/10/2024Travelfrom Last 3 Months Social History Tobacco UseTypesPacks/DayYears UsedDateSmoking Tobacco: NeverSmokeless Tobacco: Never Tobacco Cessation:Counseling Given: Not Answered Alcohol UseStandard Drinks/WeekCommentsNot Currently0 (1 standard drink = 0.6 oz pure alcohol)[facility] UtilitiesAnswerDate RecordedIn the past 12 months has the electric, gas, oil, or water company threatened to shut off services in your home?No11/26/2024PHQ-2AnswerDate RecordedTotal Mdiam310PRAPARE - TransportationAnswerDate RecordedIn the past 12 months, [...] a part of a household?No11/26/2024hildcareAnswerDate RecordedChildcareUnknown 07/31/2018EmploymentAnswerDate QrwohdcpNnmcdmsqmcKmivfep12/12/2019Hunger ScreeningAnswerDate RecordedWithin the past 12 months we worried whether our food would run out before we got money to buy more.Never True12/10/2024Within the past 12 months the food we bought just didn't last and we didn't have money to get more.Never True12/10/2024CommentsNoSex and Gender Information ValueDate RecordedSex Assigned at BirthNot on fileLegal VspLipblg18/06/2015 11:56 AM EDTGender IdentityNot on fileSexual OrientationNot on file Last Filed Vital Signs Vital SignReadingTime TakenCommentsBlood Utncaktz971/6412/01/2024 12:25 PM EDT Bypsk572812/01/2024 12:25 PM YRXFxyhvxlvdov69.9 ??C (96.7 ??F)12/10/2024 2:26 PM EDTRespiratory Rmmm1528 12:25 PM EDTOxygen Aozlaabkjo64%12/01/2024 12:25 PM EDTInhaled Oxygen Concentration--Vrtzfu30.7 kg (178 lb)12/10/2024 2:26 PM EDT Uszkdc328.6 cm (5' 4 )12/10/2024 2:26 PM EDTBody Mass Index30.5512/10/2024 2:26 PM EDT Plan of Treatment DateTypeDepartmentCare Team (Latest Contact Info)Qprelgywioe03/26/2025 1:00 PM ESTOffice Visit [facility] [address] [place] [phone] Kirby Andersen MD [address] [place], [place] [phone] Health MaintenanceDue DateLast DoneCommentsFall Risk Qzerhppwu91/22/2013 Influenza Mznhslg3010/20/2024DTaP,Tdap and Td Vaccines (1 - Tdap)05/17/2025 Postponed from 07/10/1966 (Patient Refused)Zoster (Shingles) Vaccine (1 of 2) 05/17/2025Postponed from 07/10/1997 (Patient Refused)Depression Screening Tobacco Nktruxvjj20 Goals GoalPatient Goal TypeAssociated ProblemsRecent ProgressPatient-Stated?Author <enter goal here> Abbie Holland LSW Note: Evaluation of progress towards goal: plan to go to jail facility for rehab needs Medical Devices ImplantedTypeAreaManufacturerDevice IdentifierShelf Expiration DateModel / Serial / LotStem Fem 136mm 8mm 133d Hi Os Tpr Tprlk Pps Ti Hip Prft Full - Sn/A - [id number] Implanted:Qty: 1 on 11/27/2024 by Kirby Andersen MD at [facility] ImplantRight: HipZimmer [id number]- [id number] / N/A / [id number] Actb Std Tpr Hip E-2 - Sn/A - [id number] Implanted:Qty: 1 on 11/27/2024 by Kirby Andersen MD at [facility] ImplantRight: HipZimmer [id number] / N/A / [id number] Unplr 44mm Biomr Ii E-2 Hip Cocrmo Mdlr - Sn/A - [id number] Implanted:Qty: 1 on 11/27/2024 [facility]: HipZimmer [id number] / N/A / [id number] Procedures Procedure NamePriorityDate/TimeAssociated DiagnosisCommentsXR HIP RT 2-3 VIEWS W OR WO JHUYCHFgrlxrw99/22/2025 2:27 PM EDT S/P hip hemiarthroplasty CLINICAL PATHOLOGY HANZKDWbvxwaa75/13/2025 2:21 PM EDT CLINICAL PATHOLOGY IGRMBTFbhlokd88/13/2025 2:21 PM EDT BEDSIDE PGIRJWDDzljryr94/13/2025 12:17 PM EDT BEDSIDE OADMJOWHqlxoaa25/13/2025 8:14 AM EDT OULGRYWOQCfympho01/13/2025 6:02 AM EDT COMPREHENSIVE METABOLIC KNSMNUctynpy31/13/2025 6:02 AM EDT CBC WITH AUTO ZMGJPUZAVCNPCofgkwy75/13/2025 6:02 AM EDT BEDSIDE FLPQUBWOmtvptf05/12/2025 8:57 PM EDT BEDSIDE MJAATEYJbdxvhk40/12/2025 5:14 PM EDT BEDSIDE CTXOBEQZmnxnxk84/12/2025 1:08 PM EDT BEDSIDE XDSQSAAAdskwlb58/12/2025 8:35 AM EDT IMMUNOELECTROPHORESIS FOR THERAPY IULQMXLJVPWxawsnr35/12/2025 5:34 AM EDT PROTEIN ELECTROPHORESIS, KIUOCTavkjbo84/12/2025 5:34 AM EDT EHHWETEYSOxujggw21/12/2025 5:34 AM EDT COMPREHENSIVE METABOLIC HAXSKBlklhho81/12/2025 5:34 AM EDT CBC WITH AUTO DZEWUEXBZJYJJrswqlo71/12/2025 5:34 AM EDT BEDSIDE CISSPFGElskvtx26/11/2025 9:41 PM EDT BEDSIDE KRGESTAKomwwib89/11/2025 4:34 PM EDT BEDSIDE YHQVUIBNzrqybk74/11/2025 12:22 PM EDT BEDSIDE RZMFTJAEctvgqy23/11/2025 8:48 AM EDT VITAMIN E37Tii-Kz87/11/2025 5:32 AM EDT FOLATEAdd-On11/29/2024 5:32 AM EDT FERRITINAdd-On11/29/2024 5:32 AM EDT IRON AND TIBCAdd-On11/29/2024 5:32 AM EDT MNIQCJUYACcfmezn61/11/2025 5:32 AM EDT COMPREHENSIVE METABOLIC BHPZBMdbhnjm23/11/2025 5:32 AM EDT CBC WITH AUTO XYOYBBGLAPBPHyshona17/11/2025 5:32 AM EDT BEDSIDE QISXWNLUatynsh78/10/2025 9:09 PM EDT BEDSIDE YMRZYSBZufgtgs22/10/2025 4:34 PM EDT BEDSIDE NDWXUHSAtkidgw73/10/2025 1:50 PM EDT ECHO COMPLETE W EFRHDJFQFcpftli36/10/2025 10:29 AM EDT URINALYSISAdd-On11/28/2024 8:18 AM EDT MICROSCOPIC POBNBHsgikse39/10/2025 8:18 AM EDT SODIUM, URINE, DTPKODVufwwlt43/10/2025 8:18 AM EDT UREA RANDOM, OULGLQdygqcd36/10/2025 8:18 AM EDT URINE CREATININE,COAIPVYrsljwf89/10/2025 8:18 AM EDT PROTEIN CREAT BOKMCUpbzfce61/10/2025 8:18 AM EDT MICROALBUMIN / CREATININE URINE GPKKJFuzlcpi44/10/2025 8:18 AM EDT BEDSIDE LHGYOPEQeiiwqp90/10/2025 8:09 AM EDT VMSTZIJXQPypveca85/10/2025 7:54 AM EDT COMPREHENSIVE METABOLIC MSFFVGiodhes63/10/2025 7:54 AM EDT CBC WITH AUTO IBYLVAVXXXMRFgkvyxu98/10/2025 7:54 AM EDT US RETROPERITONEAL KCHJCFSWNLUG75/10/2025 7:41 AM EDT BEDSIDE WSQGVGHAoiusws55/09/2025 9:35 PM EDT XR CHEST 1 LISukpbpn93/09/2025 6:39 PM EDT BEDSIDE IOOFAAZWbzyzmr17/09/2025 5:00 PM EDT XR HIP RT 2-3 VIEWS W OR WO OLZQVEJodznxm49/09/2025 4:30 PM EDT XR HIP RT 2-3 VIEWS W OR WO BFINIYSrkjbtd77/09/2025 2:30 PM EDT OK AN ELECTIVE ENDOTRACHEAL NDYVCNNvewfbx55/09/2025 12:36 PM EDT OK PARTIAL HIP QZECODYUYRY86/09/2025 12:19 PM EDT RIGHT HIP FX BEDSIDE CYBQUBTJhbtqos64/09/2025 10:22 AM EDT BEDSIDE FROHEBFWcerwzj25/09/2025 8:40 AM EDT ALBUMINAdd-On11/27/2024 5:42 AM EDT PHOSPHORUSAdd-On11/27/2024 5:42 AM EDT CK TOTALAdd-On11/27/2024 5:42 AM EDT B-TYPE NATRIURETIC PEPTIDEAdd-On11/27/2024 5:42 AM EDT URIC ACIDAdd-On11/27/2024 5:42 AM EDT TMDESIICPOThxaoxo55/09/2025 5:42 AM EDT CBC (NO DIFF)Pqdangg1111/27/2024 5:42 AM EDT VITAMIN D 25 DYWQNZVKmwzxuq26/09/2025 5:42 AM EDT BASIC METABOLIC VNLTMRqminar72/09/2025 5:42 AM EDT PARATHYROID HORMOME, GFHUZIAOGK05/09/2025 5:42 AM EDT BEDSIDE EZPGNJXUtbrmjf67/08/2025 9:20 PM EDT BEDSIDE URSLIYJKamlymb22/08/2025 5:[address] HIP RT WO NPPLWAXR78/08/2025 5:13 PM EDT UREA RANDOM, CCSCWLMLV55/08/2025 4:45 PM EDT URINE CREATININE,TWEEHLUUIV14/08/2025 4:45 PM EDT SODIUM, URINE, JJMXHZUBVO60/08/2025 4:45 PM EDT SIRAGVRWPBNNTZ82/08/2025 4:45 PM EDT PULSE OXIMETRY, REZKPkufusw70/08/2025 4:40 PM EDTECG 12-DQYDBCDO70/08/2025 4:39 PM EDT TYPE AND GBMCECBYXL81/08/2025 4:34 PM EDT B-TYPE NATRIURETIC PEPTIDEAdd-On11/26/2024 4:34 PM EDT CK TOTALAdd-On11/26/2024 4:34 PM EDT VITAMIN I97Iuz-Qz46/08/2025 4:34 PM EDT RETICULOCYTESAdd-On11/26/2024 4:34 PM EDT IRON AND TIBCAdd-On11/26/2024 4:34 PM EDT FOLATEAdd-On11/26/2024 4:34 PM EDT FERRITINAdd-On11/26/2024 4:34 PM EDT VITAMIN D 25 HCTTGAGJJFX13/08/2025 4:34 PM EDT KIIJCWAGAVOEDK96/08/2025 4:34 PM EDT BASIC METABOLIC YKRQHNDJG25/08/2025 4:34 PM EDT CBC WITH AUTO ELLEIEPQRCPTBDEK79/08/2025 4:34 PM EDT ECG 12-XBSCJZUW93/08/2025 3:05 PM EDT REPEATED XBFSQKpvzpdq50/08/2025 1:35 PM EDT TYPE AND UPQKSYQVVD71/08/2025 1:35 PM EDT VITAMIN D 25 RXKHVMCVEGD47/08/2025 1:35 PM EDT WNZVNFLDTPBAAA99/08/2025 1:35 PM EDT BASIC METABOLIC MPHVQTZDU20/08/2025 1:35 PM EDT CBC WITH AUTO DPAWAWLJSLRXZNJG57/08/2025 1:35 PM EDT EXTRA TUBES SST GNTRmrwixp31/08/2025 1:34 PM EDT EXTRA TUBES BLUE GQLBmztwqq29/08/2025 1:34 PM EDT EXTRA ETYTXZizbrqo84/08/2025 1:34 PM EDT XR HIP RT 2-3 VIEWS W OR WO QWVIZERLBI99/08/2025 1:06 PM EDT HEMOGLOBIN U1GJlepvfj61/22/2025 2:39 PM EDT Type 2 diabetes mellitus with hyperglycemia ([facility]) from Last 3 Months Results * X-ray [...] Signature Case ReportClinical Pathology Report ? Case: [id number] ? Authorizing Provider: ??Rodri Bravo MD ?Collected: ? 12/01/2024 1421 ? [facility] ? [facility] ??Received: ?12/01/2024 1421 ? - GEN 7 Acute ? Pathologist: ? Randy Campbell MD ? Specimens: ?? 1) - Blood, Venous ? 2) - Blood, Venous ? 12/01/2024 6:59 PM [facility] LABORATORYFinal Diagnosis Hypoalbuminemia with mild increase in acute phase reactants. No monoclonal protein identified. 12/01/2024 6:59 PM [facility] at 1859 EDTSpecimen (Source)Anatomical Location / LateralityCollection Method / VolumeCollection TimeReceived Time Venous blood / Kbdrxct6912/01/2024 2:21 PM EDT1 2:21 PM EDTVenous blood / Pzjqdmo2212/01/2024 2:21 PM EDT1 2:21 PM EDT Narrative Authorizing ProviderResult TypeResult StatusZamonica Bravo MDPATHOLOGY/CYTOLOGY ORDERABLESFinal ResultPerforming OrganizationAddressCity/State/ZIP CodePhone Number [facility] [address] [place] [address], [place] [phone] * (ABNORMAL) Bedside Glucose *Place/Obtain serum glucose if >500 per glucometer. (12/01/2024 12:17PM EDT) Only the most recent of20 resultswithin the time period is included. ComponentValueRef RangeTest MethodAnalysis TimePerformed AtPathologist Signature Bedside Glucose (POC)280(H)65 - 99 mg/dL12/01/2024 12:[address] [facility] LABORATORYSpecimen (Source)Anatomical Location / LateralityCollection Method / VolumeCollection TimeReceived Timearterial//13/2025 12:17 PM EDT 12/01/2024 12:19 PM EDT Narrative Authorizing ProviderResult TypeResult StatusRosanamundo Goodrich MDPOINT OF CARE TEST ORDERABLESFinal ResultPerforming OrganizationAddressCity/State/ZIP CodePhone Number [facility] [address] [place] [address], [place] * (ABNORMAL) CBC auto differential (12/01/2024 6:02 AM EDT) Only the most recent of6 resultswithin the time period is included. ComponentValueRef RangeTest MethodAnalysis TimePerformed AtPathologist Signature WBC5.94 - 11 x10E9/L1 7:01 AM [facility] LABORATORYRBC Count2.39(L)3.8 - 5.2 X10E12/L1 7:01 AM [facility] LABORATORYHemoglobin7.9(L)11.7 - 15.5 g/dL12/01/2024 7:01 AM [facility] TKXMKCGAOVEyyefbmnav83.1(L)35 - 47 %12/01/2024 7:01 AM [facility] DJUGEFHJDCULM2615 - 100 fL12/01/2024 7:01 AM [facility] FKJMXQHKEDIVI40.927 - 34 pg12/01/2024 7:01 AM [facility] MVWVPZRXHNBAXB09.032 - 36 g/dL12/01/2024 7:01 AM [facility] ZZVBGMPAWCWMU10.411.5 - 15 %12/01/2024 7:01 AM [facility] LABORATORYPlatelet Idlho168(L)150 - 450 X10E9/L1 7:01 AM [facility] LABORATORYMPV9.27 - 12 fL12/01/2024 7:01 AM [facility] LABORATORYNeutrophils %67.7%12/01/2024 7:01 AM [facility] LABORATORYLymphocytes %12.6%12/01/2024 7:01 AM [facility] LABORATORYMonocytes %12.2%12/01/2024 7:01 AM [facility] LABORATORYEosinophils %6.9%12/01/2024 7:01 AM [facility] LABORATORYBasophils %0.6%12/01/2024 7:01 AM [facility] LABORATORYNeutrophils Absolute (A)4.01.5 - 6.6 10*3/uL12/01/2024 7:01 AM [facility] LABORATORYLymphocytes Absolute0.7(L)1.0 - 3.5 10*3/uL12/01/2024 7:01 AM [facility] LABORATORYMonocytes Absolute0.70.0 - 0.9 10*3/uL12/01/2024 7:01 AM [facility] LABORATORYEosinophils Absolute0.40.0 - 0.4 10*3/uL12/01/2024 7:01 AM [facility] LABORATORYBasophils Absolute0.00.0 - 0.2 10*3/uL12/01/2024 7:01 AM [facility] LABORATORYDifferential TypeAUTOMATED ZSOERFAIXTET47/13/2025 7:01 AM [facility] LABORATORYSpecimen (Source)Anatomical Location / LateralityCollection Method / VolumeCollection TimeReceived TimeBloodVenous blood / UnknownVenipuncture / Nfxflry6312/01/2024 6:02 AM EDT1 6:44 AM EDT Narrative Authorizing ProviderResult TypeResult StatusYasmin QUICK BLOOD ORDERABLES Final ResultPerforming OrganizationAddressCity/State/ZIP CodePhone Number [facility] [address] [place] [address], * Magnesium (12/01/2024 6:02 AM EDT) Only the most recent of4 resultswithin the time period is included. ComponentValueRef RangeTest MethodAnalysis TimePerformed AtPathologist Signature MAGNESIUM2.11.8 - 2.6 mg/dL12/01/2024 7:22 AM [facility] LABORATORYSpecimen (Source)Anatomical Location / LateralityCollection Method / VolumeCollection TimeReceived TimeBloodVenous blood / UnknownVenipuncture / Qeezrhj3212/01/2024 6:02 AM EDT1 6:44 AM EDT Narrative Authorizing ProviderResult TypeResult StatusYasmin QUICK BLOOD ORDERABLES Final ResultPerforming OrganizationAddressCity/State/ZIP CodePhone Number [facility] [address] [place] [address], [place] [phone] * (ABNORMAL) Comprehensive metabolic panel (12/01/2024 6:02 AM EDT) Only the most recent of4 resultswithin the time period is included. ComponentValueRef RangeTest MethodAnalysis TimePerformed AtPathologist Signature BUJHIM674512 - 146 mmol/L1 7:22 AM [facility] LABORATORYPOTASSIUM4.63.5 - 5.0 mmol/L1 7:22 AM [facility] XOEPKVBTUADLNMACFA70700 - 109 mmol/L1 7:22 AM [facility] LABORATORYCARBON EJERKUQ8386 - 32 mmol/L1 7:22 AM [facility] LABORATORYANION GAP85 - 15 mmol/L1 7:22 AM [facility] LABORATORYBLOOD UREA CFDJYTIM22(H)5 - 27 mg/dL12/01/2024 7:22 AM [facility] LABORATORYCREATININE1.80(H)0.40 - 1.00 mg/dL 12/01/2024 7:22 AM [facility] LABORATORYComment:METHOD TRACEABLE TO IDMS GTHYQAGDPGUSMSP737(H)65 - 99 mg/dL12/01/2024 7:22 AM [facility] LABORATORYCALCIUM9.48.5 - 10.5 mg/dL12/01/2024 7:22 AM [facility] LABORATORYTOTAL PROTEIN5.4(L)6.0 - 8.0 g/dL12/01/2024 7:22 AM [facility] LABORATORYALBUMIN3.0(L)3.2 - 5.3 g/dL 12/01/2024 7:22 AM [facility] LABORATORYALKALINE DJQNBWOIYBK44 39 - 130 U/L1 7:22 AM [facility] VVGVUCYQCPQSG19<=41 U/L1 7:22 AM [facility] RSBIUSIQZHMIL93<=31 U/L 12/01/2024 7:22 AM [facility] LABORATORYBILIRUBIN,TOTAL0.50.3 - 1.2 mg/dL12/01/2024 7:22 AM [facility] LABORATORYEGFR Non-Race Qdhihcvgp89(L)>=60 ml/min/1.73sq.m1 7:22 AM [facility] LABORATORYComment: Reported eGFR is based on the CKD-EPI 2020 equation that does not use a race coefficient. Specimen (Source)Anatomical Location / LateralityCollection Method / Volume Collection TimeReceived TimeBloodVenous blood / UnknownVenipuncture / Unknown 12/01/2024 6:02 AM EDT1 6:44 AM EDT Narrative Authorizing ProviderResult TypeResult StatusYasmin QUICK BLOOD ORDERABLES Final ResultPerforming OrganizationAddressCity/State/ZIP CodePhone Number [facility] [address] [place] [address], * (ABNORMAL) Immunoelectrophoresis for Therapy Monitoring (11/30/2024 5:34 AM EDT)ComponentValueRef RangeTest MethodAnalysis TimePerformed AtPathologist SuucocqgvDAD71496 - 378 mg/dL12/02/2024 9:35 AM [facility] SASJLABNHQQRP033875 - 1,741 mg/dL12/02/2024 9:35 AM [facility] SKGPKWHKJTRSG29(L)45 - 281 mg/dL12/02/2024 9:35 AM [facility] LABORATORYFREE KAPPA LT CHAINS4.92(H)0.33 - 1.94 mg/dL12/02/2024 9:35 AM [facility] LABORATORYImmune Profile InterpretationSee Pathology Psywae1012/02/2024 9:35 AM [facility] LABORATORYFREE LAMBDA LT CHAINS3.72(H)0.57 - 2.63 mg/dL12/02/2024 9:35 AM [facility] LABORATORYFREE SHERRELL/LAMBD RATIO1.320.26 - 1.6512/02/2024 9:35 AM EDT [facility] LABORATORYSpecimen (Source)Anatomical Location / LateralityCollection Method / VolumeCollection TimeReceived TimeBloodVenous blood / UnknownVenipuncture / Npcumtm0911/30/2024 5:34 AM EDT1 6:25 AM EDT Narrative Authorizing ProviderResult TypeResult StatusRodri QUICK BLOOD ORDERABLES Final ResultPerforming OrganizationAddressCity/State/ZIP CodePhone Number [facility] [address] [place] [address], * (ABNORMAL) Protein electrophoresis, serum (11/30/2024 5:34 AM EDT)Component ValueRef RangeTest MethodAnalysis TimePerformed AtPathologist SignatureTOTAL PROTEIN5.4(L)6.0 - 8.0 g/dL12/02/2024 9:34 AM [facility] 1 GLOBULIN0.5(H)0.1 - 0.4 g/dL12/02/2024 9:34 AM [facility]ORYALPHA 2 GLOBULIN0.80.4 - 1.1 g/dL12/02/2024 9:34 AM [facility] LABORATORYBETA GLOBULIN0.70.5 - 1.2 g/dL 12/02/2024 9:34 AM [facility] LABORATORYGAMMA GLOBULIN0.60.5 - 1.6 g/dL12/02/2024 9:34 AM [facility] LABORATORYProtein Electrophoresis InterpSee Pathology Fadyxc2412/02/2024 9:34 AM [facility] LABORATORYAlbumin2.8(L)3.4 - 5.3 g/dL12/02/2024 9:34 AM EDT [facility]YSpec[facility] (Source)Anatomical Location / LateralityCollection Method / VolumeCollection TimeReceived TimeBloodVenous blood / UnknownVenipuncture / Qtmtmhv8611/30/2024 5:34 AM EDT1 6:25 AM EDT Narrative Authorizing ProviderResult TypeResult StatusRodri Bravo MDLAB BLOOD ORDERABLES Final ResultPerforming OrganizationAddressCity/State/ZIP CodePhone Number [facility] [address] [place] [address], * (ABNORMAL) Iron and TIBC (11/29/2024 5:32 AM EDT) Only the most recent of2 resultswithin the time period is included. ComponentValueRef RangeTest MethodAnalysis TimePerformed AtPathologist Signature IRON12(L)50 - 170 ug/dL11/29/2024 7:38 PM [facility] [id number] - 336 mg/dL11/29/2024 7:38 PM [facility] LABORATORYIRON [id number] - 425 ug/dL11/29/2024 7:38 PM [facility]ORATORYIRON SATURATION4(L)15 - 50 % FNLQDVELYB52/11/2025 7:38 PM EDT [facility]YSpecimen (Source)Anatomical Location / LateralityCollection Method / VolumeCollection TimeReceived TimeBloodVenous blood / UnknownVenipuncture / Uwmcqak8311/29/2024 5:32 AM EDT1 5:42 AM EDT Narrative Authorizing ProviderResult TypeResult StatusSumundo Goodrich TXLAB BLOOD ORDERABLES Final ResultPerforming OrganizationAddressCity/State/ZIP CodePhone Number [facility] [address] [place] [address], * Folate (11/29/2024 5:32 AM EDT) Only the most recent of2 resultswithin the time period is included. ComponentValueRef RangeTest MethodAnalysis TimePerformed AtPathologist Signature FOLIC ACID17.9>5.8 ng/mL11/29/2024 8:50 PM [facility] LABORATORYSpecimen (Source)Anatomical Location / LateralityCollection Method / VolumeCollection TimeReceived TimeBloodVenous blood / UnknownVenipuncture / Xlcfecu6611/29/2024 5:32 AM EDT1 5:42 AM EDT Narrative Authorizing ProviderResult TypeResult StatusYasmin Goodrich TXLAB BLOOD ORDERABLES Final ResultPerforming OrganizationAddressCity/State/ZIP CodePhone Number [facility] [address] [place] [address], * Ferritin (11/29/2024 5:32 AM EDT) Only the most recent of2 resultswithin the time period is included. ComponentValueRef RangeTest MethodAnalysis TimePerformed AtPathologist Signature PJTNHIWD0243 - 307 ng/mL11/29/2024 8:47 PM [facility] LABORATORYSpecimen (Source)Anatomical Location / LateralityCollection Method / VolumeCollection TimeReceived TimeBloodVenous blood / UnknownVenipuncture / Rfcnbks5911/29/2024 5:32 AM EDT1 5:42 AM EDT Narrative Authorizing ProviderResult TypeResult StatusYasmin QUICK BLOOD ORDERABLES Final ResultPerforming OrganizationAddressCity/State/ZIP CodePhone Number [facility] [address] [place] [address], * Vitamin B12 (11/29/2024 5:32 AM EDT) Only the most recent of2 resultswithin the time period is included. ComponentValueRef RangeTest MethodAnalysis TimePerformed AtPathologist Signature VITAMIN [id number] - 914 pg/mL11/29/2024 8:51 PM [facility] LAB[facility]YSpecimen (Source)Anatomical Location / LateralityCollection Method / VolumeCollection TimeReceived TimeBloodVenous blood / UnknownVenipuncture / Bndnujv6011/29/2024 5:32 AM EDT1 5:42 AM EDT Narrative Authorizing ProviderResult TypeResult StatusYasmin QUICK BLOOD ORDERABLES Final ResultPerforming OrganizationAddressCity/State/ZIP CodePhone Number [facility] [address] [place] [address], * Echo complete W/ contrast (11/28/2024 10:29 AM EDT)ComponentValueRef RangeTest MethodAnalysis TimePerformed AtPathologist GhkxcmpozNS6259 - 44 %XCELERALVIDd 4.404.42 - 6.14 cmXCELERALVIDs2.802.61 - 3.96 cmXCELERAIVS1.100.6 - 1.1 cm XCELERAPW1.100.6 - 1.1 cmXCELERATDI7.01cm/sXCELERAMV TDI E' (medial)5.43cm/s XCELERALA Volume Index51.2mL/g7JHFMVXWC/A ratio1.31XCELERAE wave deceleration daut548.00msecXCELERAMV Peak E Fbe775.00cm/sXCELERAMV Peak A Dsd509.00cm/s XCELERALA size4.10cmXCELERAAortic root3.50cmXCELERALA tkosue87.91li5XNHHDNNKF diastolic dimension (basal)32.1pqWEDBNCPICIHY9.28cmXCELERAAV peak zun304.00 cm/sXCELERALVOT peak vel1.11m/sXCELERAAV VTI33.00cmXCELERALVOT peak VTI32.80cm XCELERAAV mean gradient4.00mmHgXCELERAAV peak gradient6.55mmHgXCELERAMV pressure 1/2 time69.00msXCELERAMV valve area p 1/2 method3.34qi7PEEWESRGV peak gradient4.24mmHgXCELERAInferior Vena Cava Diameter2.00cmXCELERALV ESV A2C 103.00mLXCELERALV ESV A4C94.40mLXCELERALV RWT 2D50.00XCELERAAV Velocity Ratio 0.99XCELERAIVC atuauayg53gjURTMKHMDqcr Ventricle Zpmw040.116973417178834n XCELERAInterventricular Septum Diastolic Thickness by 1L46tvCKXZTXFGmg. RA hegbtuio3zqKxFNDPMCPPL area16.0vz6IWZORBRBNSOUU-4.09XCELERAZLVIDD-1.69XCELERA Energy loss index17.98XCELERAAnatomical RegionLateralityModalityChestN/A UltrasoundSpecimen (Source)Anatomical Location [...] are normal. Authorizing ProviderResult TypeResult StatusSusan [facility] ECHO ORDERABLESFinal Result * (ABNORMAL) Protein creat ratio (11/28/2024 8:18 AM EDT)ComponentValueRef Range Test MethodAnalysis TimePerformed AtPathologist SignatureURINE PROTEIN, RANDOM (MG/L)1,270(H)<120 mg/L1 10:18 AM [facility] LABORATORYURINE CREATININE,RDM83.62mg/dL11/28/2024 10:18 AM [facility] LABORATORYU/PRO/COATING MACHINE OPERATOR HELPER RATIO CALC1.52(H)<=0. 10:18 AM EDT [facility] LABORATORYSpecimen (Source)Anatomical Location / LateralityCollection Method / VolumeCollection TimeReceived TimeUrine (Urine, Indwelling Catheter)11/28/2024 8:18 AM EDT1 9:13 AM EDT Narrative [facility] - 11/28/2024 10:18 AM EDT Nephrotic Syndrome is associated with ratios >3.5 Authorizing ProviderResult TypeResult StatusYasmin CURRIE ORDERABLESFinal ResultPerforming OrganizationAddressCity/State/ZIP CodePhone Number [facility] [address] [place] [address], [place] [phone] * Urine Creatinine,random (11/28/2024 8:18 AM EDT) Only the most recent of2 resultswithin the time period is included. ComponentValueRef RangeTest MethodAnalysis TimePerformed AtPathologist Signature URINE CREATININE,RDM85.13mg/dL11/28/2024 10:11 AM [facility] LABORATORYSpecimen (Source)Anatomical Location / LateralityCollection Method / VolumeCollection TimeReceived TimeUrine (Urine, Indwelling Catheter)11/28/2024 8:18 AM EDT1 9:05 AM EDT Narrative Authorizing ProviderResult TypeResult StatusMaxwell CURRIE ORDERABLES Final ResultPerforming OrganizationAddressCity/State/ZIP CodePhone Number [facility] [address] [place] [address], [place] [phone] * (ABNORMAL) Microscopic, urine (11/28/2024 8:18 AM EDT)ComponentValueRef Range Test MethodAnalysis TimePerformed AtPathologist SignatureMUCOUSPresent(A)None 11/28/2024 10:10 AM [facility] LABORATORYR.B.CELLS10 - 5 11/28/2024 10:10 AM [facility] LABORATORYW.B.CELLS25(H)0 - 5 11/28/2024 10:10 AM [facility] LABORATORYSpecimen (Source) Anatomical Location / LateralityCollection Method / VolumeCollection Time Received TimeUrine (Urine, Indwelling Catheter)11/28/2024 8:18 AM EDT 11/28/2024 9:05 AM EDT Narrative Authorizing ProviderResult TypeResult StatusMaxwell CURRIE ORDERABLES Final ResultPerforming OrganizationAddressty/State/ZIP CodePhone Number [facility] [address] [place] [address], * Urea random, urine (11/28/2024 8:18 AM EDT) Only the most recent of2 resultswithin the time period is included. ComponentValueRef RangeTest MethodAnalysis TimePerformed AtPathologist Signature URINE UREA NITROGEN,OFDTPK181es/dL11/28/2024 10:18 AM [facility] LABORATORYSpecimen (Source)Anatomical Location / LateralityCollection Method / VolumeCollection TimeReceived TimeUrine (Urine, Indwelling Catheter) 11/28/2024 8:18 AM EDT1 9:13 AM EDT Narrative Authorizing ProviderResult TypeResult StatusMaxwell CURRIE ORDERABLES Final ResultPerforming OrganizationAddressty/State/ZIP CodePhone Number [facility] [address] [place] [address], * (ABNORMAL) Microalbumin - Albumin: Creatinine Urine Ratio (11/28/2024 8:18 AM EDT)ComponentValueRef RangeTest MethodAnalysis TimePerformed AtPathologist SignatureURINE CREATININE,RDM83.62mg/dL11/28/2024 10:18 AM [facility] LABORATORYMALB/CREAT XYNPX204.3(H)0.0 - 30.0 mg/g1 10:18 AM [facility] LABORATORYMICROALBUMIN, URINE22.6(H)0.0 - 1.9 mg/dL11/28/2024 10:18 AM [facility] LABORATORYSpecimen (Source)Anatomical Location / LateralityCollection Method / VolumeCollection TimeReceived TimeUrine (Urine, Indwelling Catheter)11/28/2024 8:18 AM EDT 11/28/2024 9:13 AM EDT Narrative Authorizing ProviderResult TypeResult StatusYasmin CURRIE ORDERABLESFinal ResultPerforming OrganizationAddressCity/State/ZIP CodePhone Number [facility] [address] [place] [address], * Sodium, urine, random (11/28/2024 8:18 AM EDT) Only the most recent of2 resultswithin the time period is included. ComponentValueRef RangeTest MethodAnalysis TimePerformed AtPathologist Signature URINE SODIUM,DSXXCK01vqqj/L1 10:18 AM [facility] LABORATORYSpecimen (Source)Anatomical Location / LateralityCollection Method / VolumeCollection TimeReceived TimeUrine (Urine, Indwelling Catheter)11/28/2024 8:18 AM EDT1 9:13 AM EDT Narrative Authorizing ProviderResult TypeResult StatusMaxwell CURRIE ORDERABLES Final ResultPerforming OrganizationAddressCity/State/ZIP CodePhone Number [facility] [address] [place] [address], * (ABNORMAL) Urinalysis (11/28/2024 8:18 AM EDT) Only the most recent of2 resultswithin the time period is included. ComponentValueRef RangeTest MethodAnalysis TimePerformed AtPathologist Signature HHUUVWefshoUiudbt37/10/2025 6:06 PM [facility] KHBPFHKLOFqsmxKkerv64/10/2025 6:06 PM [facility] SPECIFIC GRAVITY1.0181.003 - 1.0259411/28/2024 6:06 PM [facility] EMIWEHXLYILQKNYYTLuxpdabtHtvupdjp63/10/2025 6:06 PM [facility] LABORATORYPH,URINE5.55.0 - 8.510 6:06 PM [facility] LABORATORYLEUKOCYTE TRLSUVTPFezkttavNiwmheem47/10/2025 6:06 PM [facility] WLWAHNDISZEPJHCYR41 mg/dL(A)Buohuiyy55/10/2025 6:06 PM EDT [facility] LABORATORYKETONES (URINE)ZjbdkiyxWhqfykos29/10/2025 6:06 PM [facility] LABORATORYUROBILINOGEN<1.1 eu/dL<1.1 eu/dL 11/28/2024 6:06 PM [facility] LABORATORYBILIRUBIN (URINE) PslegclsVzajoydc86/10/2025 6:06 PM [facility] BLOOD/HGBSmall(A)Iiywdklf31/10/2025 6:06 PM [facility] LABORATORYHYALINE CASTS10 - 6:06 PM [facility] LABORATORYMUCOUSPresent(A)None11/28/2024 6:06 PM [facility] LABORATORYR.B.CELLS<10 - 6:06 PM [facility] LABORATORYSQUAMOUS EQMGVGDVTM48 - 6:06 PM [facility] LABORATORYW.B.CELLS29(H)0 - 6:06 PM [facility] LABORATORYGLUCOSE (URINE)500 mg/dL(A)Ifqoplgv41/10/2025 6:06 PM [facility] LABORATORYSpecimen (Source)Anatomical Location / Laterality Collection Method / VolumeCollection TimeReceived TimeUrine (Urine, Indwelling Catheter)11/28/2024 8:18 AM EDT1 9:13 AM EDT Narrative [facility] - 11/28/2024 6:06 PM EDT Urine received without preservative. Delays in transport may affect results. Interpret with caution. A clinical correlation is recommended. Authorizing ProviderResult TypeResult StatusSumundo CURRIE ORDERABLESFinal ResultPerforming OrganizationAddressCity/State/ZIP CodePhone Number [facility] [address] [place] [address], [place] [phone] * Ultrasound retroperitoneal complete (11/28/2024 7:41 AM [...] Pretty MDIMG DIAGNOSTIC IMAGING ORDERABLESFinal Result * OK AN ELECTIVE ENDOTRACHEAL AIRWAY (11/27/2024 12:36 PM EDT) Kirby Wylie SRNA - 11/27/2024 12:36 PM EDT YONIS Garcia 11/27/2024 1:12 PM Airway Patient location during procedure: OR Urgency: Elective Date/Time: 11/27/2024 12:36 PM Airway not difficult IV In Situ: Peripheral General Information and Staff Service Provider: Brent Collado MD CARE REP: Flaco Caal APRN-CARE REP Student: YONIS Garcia Placed by: ??YONIS Garcia [...] INTACT 116(H)12 - 88 pg/mL11/27/2024 7:02 AM [facility] Specimen (Source)Anatomical Location / LateralityCollection Method / Volume Collection TimeReceived TimeBloodVenous blood / UnknownVenipuncture / Unknown 11/27/2024 5:42 AM EDT1 6:13 AM EDT Narrative Authorizing ProviderResult TypeResult StatusGonzalo Rolle MDLAB BLOOD ORDERABLESFinal ResultPerforming OrganizationAddressCity/State/ZIP CodePhone Number [facility] [address] [place] [address], * (ABNORMAL) Vitamin D 25 hydroxy (11/27/2024 5:42 AM EDT) Only the most recent of3 resultswithin the time period is included. ComponentValueRef RangeTest MethodAnalysis TimePerformed AtPathologist Signature VITAMIN D 25 HYD TOT23.1(L)30.0 - 100.0 ng/mL11/27/2024 7:10 AM [facility] LABORATORYSpecimen (Source)Anatomical Location / Laterality Collection Method / VolumeCollection TimeReceived TimeBloodVenous blood / UnknownVenipuncture / Xxgfcpj1211/27/2024 5:42 AM EDT1 6:13 AM EDT Narrative [facility] - 11/27/2024 7:10 AM EDT Vitamin D status 25 [place] Vitamin D Deficiency <20 ng/mL Insufficiency ? 20-29 ng/mL Sufficiency ? 30-100 ng/mL Toxicity >100 ng/mL NOTE: A pediatric reference range has not been established by the manager cost of this kit. The [place] [employer] recommends a Vitamin D level of = or >20ng/mL in infants and children. Authorizing ProviderResult TypeResult Status[facility] Gely Rolle TXLAB BLOOD ORDERABLESFinal ResultPerforming OrganizationAddressCity/State/ZIP CodePhone Number [facility] [address] [place] [address], * (ABNORMAL) CBC without diff (11/27/2024 5:42 AM EDT)ComponentValueRef Range Test MethodAnalysis TimePerformed AtPathologist SignatureWBC8.14 - 11 x10E9/L 11/27/2024 6:29 AM [facility] LABORATORYRBC Count3.30(L)3.8 - 5.2 X10E12/L1 6:29 AM [facility] Qokswprcbm38.0(L)11.7 - 15.5 g/dL11/27/2024 6:29 AM [facility] SVURLSSMGKGnkicqyuld65.1(L)35 - 47 %11/27/2024 6:29 AM [facility] DEWEGYIDWWWDI3391 - 100 fL11/27/2024 6:29 AM [facility] SDDYQGDBPTPTI81.327 - 34 pg11/27/2024 6:29 AM [facility] YINNNHTDTLWBSO53.232 - 36 g/dL11/27/2024 6:29 AM [facility] HIWDOXTWOZOQA54.611.5 - 15 %11/27/2024 6:29 AM [facility] LABORATORYPlatelet Qkzvm261(L)150 - 450 X10E9/L1 6:29 AM [facility] LABORATORYMPV9.07 - 12 fL11/27/2024 6:29 AM [facility] LABORATORYSpecimen (Source)Anatomical Location / LateralityCollection Method / VolumeCollection TimeReceived TimeBloodVenous blood / UnknownVenipuncture / Kbgeirn3411/27/2024 5:42 AM EDT1 6:13 AM EDT Narrative Authorizing ProviderResult TypeResult StatusHibshaheen QUICK BLOOD ORDERABLESFinal ResultPerforming OrganizationAddressCity/State/ZIP CodePhone Number [facility] [address] [place] [id number], * Uric acid (11/27/2024 5:42 AM EDT)ComponentValueRef RangeTest MethodAnalysis TimePerformed AtPathologist SignatureURIC ACID6.62.6 - 7.2 mg/dL11/27/2024 6:05 PM [facility] LABORATORYSpecimen (Source)Anatomical Location / LateralityCollection Method / VolumeCollection TimeReceived Time BloodVenous blood / UnknownVenipuncture / Xusilir2411/27/2024 5:42 AM EDT 11/27/2024 6:13 AM EDT Narrative Authorizing ProviderResult TypeResult StatusDasaud Pretty MDLAB BLOOD ORDERABLES Final ResultPerforming OrganizationAddressCity/State/ZIP CodePhone Number [facility] [address] [place] [address], * Prealbumin (11/27/2024 5:42 AM EDT) Only the most recent of3 resultswithin the time period is included. ComponentValueRef RangeTest MethodAnalysis TimePerformed AtPathologist Signature XCQBPDKAFN5701 - 45 mg/dL11/27/2024 6:50 AM [facility] LABORATORYSpecimen (Source)Anatomical Location / LateralityCollection Method / VolumeCollection TimeReceived TimeBloodVenous blood / UnknownVenipuncture / Xpguufb0311/27/2024 5:42 AM EDT1 6:13 AM EDT Narrative Authorizing ProviderResult TypeResult StatusHibah H Issidil MDLAB BLOOD ORDERABLESFinal ResultPerforming OrganizationAddressCity/State/ZIP CodePhone Number [facility] [address] [place] [address], * Phosphorus (11/27/2024 5:42 AM EDT)ComponentValueRef RangeTest MethodAnalysis TimePerformed AtPathologist SignaturePHOSPHORUS4.32.4 - 4.9 mg/dL11/27/2024 6:05 PM [facility] LABORATORYSpecimen (Source)Anatomical Location / LateralityCollection Method / VolumeCollection TimeReceived Time BloodVenous blood / UnknownVenipuncture / Iyeptcz9011/27/2024 5:42 AM EDT 11/27/2024 6:13 AM EDT Narrative Authorizing ProviderResult TypeResult StatusDaceciliol Sukhwinder MDLAB BLOOD ORDERABLES Final ResultPerforming OrganizationAddressCity/State/ZIP CodePhone Number [facility] [place] [address], * (ABNORMAL) B-type natriuretic peptide (11/27/2024 5:42 AM EDT) Only the most recent of2 resultswithin the time period is included. ComponentValueRef RangeTest MethodAnalysis TimePerformed AtPathologist Signature DHS384(H)<=100 pg/mL11/27/2024 6:28 PM [facility] Specimen (Source)Anatomical Location / LateralityCollection Method / Volume Collection TimeReceived TimeBloodVenous blood / UnknownVenipuncture / Unknown 11/27/2024 5:42 AM EDT1 6:13 AM EDT Narrative Authorizing ProviderResult TypeResult StatusDanial Sukhwinder MDLAB BLOOD ORDERABLES Final ResultPerforming OrganizationAddressCity/State/ZIP CodePhone Number [facility] [address] [place] [address], [place] [phone] * (ABNORMAL) CK Total (11/27/2024 5:42 AM EDT) Only the most recent of2 resultswithin the time period is included. ComponentValueRef RangeTest MethodAnalysis TimePerformed AtPathologist Signature CPK18(L)24 - 170 U/L1 6:05 PM [facility] Specimen (Source)Anatomical Location / LateralityCollection Method / Volume Collection TimeReceived TimeBloodVenous blood / UnknownVenipuncture / Unknown 11/27/2024 5:42 AM EDT1 6:13 AM EDT Narrative Authorizing ProviderResult TypeResult StatusDanial Pretyt MDLAB BLOOD ORDERABLES Final ResultPerforming OrganizationAddressCity/State/ZIP CodePhone Number [facility] [address] [place] [address], [place] [phone] * Albumin (11/27/2024 5:42 AM EDT)ComponentValueRef RangeTest MethodAnalysis TimePerformed AtPathologist SignatureALBUMIN3.43.2 - 5.3 g/dL11/27/2024 6:05 PM [facility] LABORATORYSpecimen (Source)Anatomical Location / LateralityCollection Method / VolumeCollection TimeReceived TimeBloodVenous blood / UnknownVenipuncture / Ibdrbgj1811/27/2024 5:42 AM EDT1 6:13 AM EDT Narrative Authorizing ProviderResult TypeResult StatusDanial Pretty MDLAB BLOOD ORDERABLES Final ResultPerforming OrganizationAddressCity/State/ZIP CodePhone Number [facility] [address] [place] [address], * (ABNORMAL) Basic Metabolic Panel (11/27/2024 5:42 AM EDT) Only the most recent of3 resultswithin the time period is included. ComponentValueRef RangeTest MethodAnalysis TimePerformed AtPathologist Signature WOASSG423894 - 146 mmol/L1 6:50 AM [facility] LABORATORYPOTASSIUM4.53.5 - 5.0 mmol/L1 6:50 AM [facility] IJHAENMQYBPYYFSGMD75297 - 109 mmol/L1 6:50 AM [facility] LABORATORYCARBON UTSAJBI4899 - 32 mmol/L1 6:50 AM [facility] LABORATORYANION GAP75 - 15 mmol/L1 6:50 AM [facility] LABORATORYBLOOD UREA XDWVBHIM59(H)5 - 27 mg/dL11/27/2024 6:50 AM [facility] LABORATORYCREATININE2.53(H)0.40 - 1.00 mg/dL 11/27/2024 6:50 AM [facility] LABORATORYComment:METHOD TRACEABLE TO IDMS HALJWXRQZGVRPLH054(H)65 - 99 mg/dL11/27/2024 6:50 AM [facility] LABORATORYCALCIUM9.18.5 - 10.5 mg/dL11/27/2024 6:50 AM EDT [facility] LAB[facility]ORYEGFR Non-Race Xjraqktaf39(L)>=60 ml/min/1.73sq.m1 6:50 AM [facility] LABORATORYComment: Reported eGFR is based on the CKD-EPI 2020 equation that does not use a race coefficient. Specimen (Source)Anatomical Location / LateralityCollection Method / Volume Collection TimeReceived TimeBloodVenous blood / UnknownVenipuncture / Unknown 11/27/2024 5:42 AM EDT1 6:13 AM EDT Narrative Authorizing ProviderResult TypeResult StatusHibah H Ismail MDLAB BLOOD ORDERABLESFinal ResultPerforming OrganizationAddressCity/State/ZIP CodePhone Number [facility] [address] [place] [address], * CT hip right without contrast (11/26/2024 [...] Count1.50.4 - 2.2 % 11/26/2024 4:56 PM [facility] LABORATORYSpecimen (Source) Anatomical Location / LateralityCollection Method / VolumeCollection Time Received TimeBloodVenous blood / Iogdgpu3611/26/2024 4:34 PM EDT1 4:49 PM EDT Narrative Authorizing ProviderResult TypeResult Cheryl QUICK BLOOD ORDERABLESFinal ResultPerforming OrganizationAddressCity/State/ZIP CodePhone Number [facility] [address] [place] [address], [place] [phone] * Type and screen(includes indirect vikas) (11/26/2024 4:34 PM EDT) Only the most recent of2 resultswithin the time period is included. ComponentValueRef RangeTest MethodAnalysis TimePerformed AtPathologist Signature ABOA1 5:[address] [facility] SSGSRLUEHHASIgnjvlav95/08/[address] [facility] LABORATORYAntibody WyqyetJkliepxe77/08/2025 5:[address] [facility] LABORATORYSpecimen (Source)Anatomical Location / LateralityCollection Method / VolumeCollection TimeReceived TimeBloodVenous blood / Cwnlcmz1711/26/2024 4:34 PM EDT1 5:04 PM EDT Narrative Authorizing ProviderResult TypeResult StatusRussnilay Green DOBLOOD BANK TEST ORDERABLESEdited Result - FinalPerforming OrganizationAddressCity/State/ZIP Code Phone Number [facility] [address] [place] [address], [facility] [address] [place] [address], [place] * ABO Rh Repeat (11/26/2024 1:35 PM EDT)ComponentValueRef RangeTest Method Analysis TimePerformed AtPathologist NvnilwrykPHMZ10/08/2025 2:42 PM EDT [facility]RHPositive11/26/2024 2:42 PM EDTPMercy Health West Hospitalimen (Source)Anatomical Location / Laterality Collection Method / VolumeCollection TimeReceived TimeBloodVenous blood / UnknownVenipuncture / Vljumjm7011/26/2024 1:35 PM EDT1 1:38 PM EDT Narrative Authorizing ProviderResult TypeResult StatusNika SQUIRESCNPBLOOD BANK TEST ORDERABLESFinal ResultPerforming OrganizationAddressCity/State/ZIP CodePhone Number [facility]ITALRADHA [address] [address], [facility] [address] [place] [address], * SST TOP (11/26/2024 1:34 PM EDT)ComponentValueRef RangeTest MethodAnalysis TimePerformed AtPathologist SignatureExtra TubeAuto Jiixtiop22/08/2025 3:01 PM EDTPKETTERING HEALTHpecimen (Source)Anatomical Location / LateralityCollection Method / VolumeCollection TimeReceived TimeBloodVenous blood / Bhnqjlr8111/26/2024 1:34 PM EDT1 1:39 PM EDT Narrative Authorizing ProviderResult TypeResult StatusEulalio QUICK BLOOD ORDERABLES Final ResultPerforming OrganizationAddressty/State/ZIP CodePhone Number [address] [place] [address], * Light Blue Top (11/26/2024 1:34 PM EDT)ComponentValueRef RangeTest Method Analysis TimePerformed AtPathologist SignatureExtra TubeAuto Resulted 11/26/2024 3:01 PM EDTPROMEDLOS BANOS COMMUNITY HOSPITALpecimen (Source) Anatomical Location / LateralityCollection Method / VolumeCollection Time Received TimeBloodVenous blood / Jitidws4511/26/2024 1:34 PM EDT1 1:39 PM EDT Narrative Authorizing ProviderResult TypeResult StatusEulalio QUICK BLOOD ORDERABLES Final ResultPerforming OrganizationAddressCity/[facility]/ZIP CodePhone Number [address] [place] [address], * (ABNORMAL) Hemoglobin A1c (10/10/2024 2:39 PM EDT)ComponentValueRef RangeTest MethodAnalysis TimePerformed AtPathologist SignatureHEMOGLOBIN A1C7.0(H)4.4 - 5.6 %10/10/2024 7:07 PM [facility] LABORATORYComment: ?ADA Guidelines ?Result ?HgbA1c ? Normal : ? less than 5.7 % ? Prediabetes : ?5.7 % ??to 6.4 % Diabetes : > 6.4 % ?Use with caution in patients with abnormal hemoglobin variants as ??the half-life of red blood cells and in vivo glycation rates are ??affected. EST. AVERAGE CNDDLBH266lz/dL10/10/2024 7:07 PM [facility] LABORATORYSpecimen (Source)Anatomical Location / LateralityCollection Method / VolumeCollection TimeReceived TimeBloodVenous blood / UnknownVenipuncture / Gcvdggp8510/10/2024 2:39 PM EDT10/10/2024 2:39 PM EDT Narrative Authorizing ProviderResult TypeResult StatusMarc John QUICK BLOOD ORDERABLES Final ResultPerforming OrganizationAddressCity/State/ZIP CodePhone Number [facility] [address] [place] [address], from Last 3 Months Insurance * Guarantor: Elif Shah AAccount TypeRelation to PatientDate of PhoneBilling AddressPersonal/CkqyqaMnsp14/22/1946 [address] [address] Advance Directives * Full Code (Latest Code Status on File) Date ActivatedDate WuqatxkqkfbPhtbbfdr67/8/2025 5:39 PM10 5:47 PM Care Teams Team MemberRelationshipSpecialtyStart DateEnd Date Amador Lopez MD [address] [place] [phone] [facility]
--- OUTSIDE RECORDS SUMMARY | 2024-12-14 15:24 | XMS_ITS | Clinical Summary ---
Author Organization [facility] Address [address] [place] [address] Care Team Providers Care Chyron Operator Name Role Phone Amador Lopez MD Primary Care Provider [phone] Amador Lopez MD Unavailable Allergies Active AllergyReactionsCriticalityNoted QfnpMtqmfiykPcjzdaaFhapl17/08/2022 Cuiulmjvjcxyfypf41/16/2024CyclobenzaprineItching,Hives,AvaiOxo9112/11/2012 YumljskolwaSuzcfazs30/02/2020ExenatideNausea Only,ChtsXlg8812/27/2012 Other Reaction(s): itching Iodinated Contrast VafnaGfnyc33/19/2014 Other Reaction(s): itching/rash Paopducvyumi85/14/2023LiraglutideNausea Only3PenicillinsItching,Hives, FwvhUuv7612/11/20123091Xrzphtmhnqtv15/28/4168OdfcdniyifHecdf93/02/2020Ticagrelor 06/02/2022 Other Reaction(s): sickness TrazodoneNausea Only,GI zyspktbkair65/30/2020 Medications MedicationSigDispense QuantityRefillsLast FilledStart DateEnd DateStatus aspirin [...] mouth Daily 90 tablet 4Active nystatin (Mycostatin) 824485 UNIT/GM powder Indications:Skin candidiasisApply 1 application topically [...] EVERY DAY 90 tablet 5Active glucose blood (C2Call GmbHTouch Ultra Test) test strip Indications:Type 2 diabetes mellitus with hyperglycemia, without long-term current use of insulin ([facility])1 each by Other route Daily Use as instructed 50 each 5Active Lancets Micro Thin 33G [facility] Indications:Type 2 diabetes mellitus with hyperglycemia, without long-term current use of insulin ([facility])1 each Daily 50 each 5Active cholecalciferol (Vitamin [...] hyperglycemia, without long-term current use of insulin ([facility])USE DIRECTED 1 kit 5Active fluticasone (Flonase) 50 MCG/ACT nasal spray Indications:Upper respiratory tract infection, unspecified typeAdminister 2 sprays into each nostril Daily Shake gently. Before first use, prime pump. After use, clean tip and replace cap.5Active Continuous Glucose Seed Yeast Operator (FreeStyle Violet 3 [place]) device Indications:Type 2 diabetes mellitus with hyperglycemia, without long-term current use of insulin ([facility])1 each continuously 1 each 5Active Continuous Glucose Sensor (FreeStyle Violet 3 Sensor) [facility] Indications:Type 2 diabetes mellitus with hyperglycemia, without long-term current use of insulin ([facility])1 each continuously 2 each 1105Active insulin lispro (HumaLOG) 100 UNIT/ML injection Indications:Type 2 diabetes mellitus with hyperglycemia, without long-term current use of insulin ([facility])INJECT 2-10 UNITS UNDER THE SKIN IN THE [...] hyperglycemia, without long-term current use of insulin ([facility])Use as directed 100 each 5Active Active Problems ProblemNoted DateDiagnosed DateMedicare annual wellness visit, subsequent 05/27/2024 Assessment & Plan (05/27/2024 12:15 PM EDT): Reviewed labs. Discussed proper diet and regular aerobic exercise. Need to increase walking and continue PT exercises. Smaller portions and limit total calories. Tetanus every 10 years. Advised not to smoke. Discussed daily Aspirin therapy. Type 2 diabetes mellitus with diabetic xfyzdcaoffkujgrf02/29/2025Left elbow pain 02/29/2024 Assessment & Plan (02/29/2024 2:12 PM EST): Pain improved and monitor. Class 1 obesity due to excess calories with serious comorbidity and body mass index (BMI) of 33.0 to 33.9 in adult11/12/2023 Assessment & Plan (02/29/2024 2:12 PM EST): Weight loss indicated. Arachnoid cyst03/13/2023AD in [place] uqucoq0903/13/2023 Assessment & Plan (11/12/2023 3:43 PM EDT): No symptoms and follow with cardiology. Cerebrovascular disease, qbyjzrakunp28/23/2024hronic ozrvkevcukdi34/23/2024 Ujgmgngbsuih83/23/2024hronic diastolic heart ucukove9803/13/2023 Assessment & Plan (08/28/2024 2:26 PM EDT): [...] Elevate legs PRN. Follow up with cardiology. Choavujkeqyo76/23/2024 Assessment & Plan (08/28/2024 2:26 PM EDT): Pain unchanged and use norco PRN. Try to increase activity and walk regularly. Assessment & Plan (11/12/2023 3:41 PM EDT): Pain unchanged and use norco PRN. Try to increase activity and walk regularly. Assessment & Plan (03/13/2023 2:36 PM EST): Pain unchanged and use norco PRN. Try to increase activity and walk regularly. Generalized anxiety cinsqiag27/23/2024 Assessment & Plan (08/28/2024 2:26 PM EDT): Symptoms stable with medication and monitor. Assessment & Plan (11/12/2023 3:42 PM EDT): Symptoms stable with medication and monitor. Assessment & Plan (03/13/2023 2:36 PM EST): Symptoms stable with medication and monitor. Gastroesophageal reflux wwpscnh9403/13/2023 Assessment & Plan (11/12/2023 3:42 PM EDT): Symptoms controlled with medication and continue. Assessment & Plan (03/13/2023 2:36 PM EST): Symptoms controlled with medication and continue. Gmupaiaxhcpq27/23/2024Major depressive disorder, recurrent episode, mild 03/13/2023 Assessment & Plan (08/28/2024 2:27 PM EDT): Mood stable with medication and continue. Assessment & Plan (11/12/2023 3:42 PM EDT): Mood stable with medication and continue. Assessment & Plan (03/13/2023 2:36 PM EST): Mood stable with medication and continue. Overflow cvuhmvxmvzsg00/23/2024rimary osteoarthritis of both knees03/13/2023 Assessment & Plan [...] 2:13 PM EST): Check labs Vitamin D qgkvcitlky14/23/2024Type 2 diabetes mellitus with hyperglycemia, without long-term current use of iichbjw5203/13/2023 Assessment & Plan (08/28/2024 2:27 PM EDT): [...] ADA diet and limit carbs. Benign essential jjzrozwjoelo20/23/2024 Assessment & Plan (08/28/2024 2:26 PM EDT): [...] usually normal. Continue to monitor PRN. Primary rlgojlmx05/23/2024 Assessment & Plan (08/28/2024 2:27 PM EDT): Not sleeping well without restoril and resume. Assessment & Plan (11/12/2023 3:42 PM EDT): Sleeping well with restoril and continue. Encounter for long-term (current) use of atfkseuzzsb90/23/2024 Resolved Problems ProblemNoted DateDiagnosed DateResolved DateAcute UTI401/11/2024 Assessment & Plan (11/12/2023 3:41 PM EDT): History suggestive UTI and treat. Take bactrim for infection. Increase water intake and cranberry juice. Use motrin or tylenol for discomfort. Encounters DateTypeDepartmentCare TattOlfvkwfsgkj75/25/2025Results Follow-Up [facility] [place] [facility] [address] [facility] [place] [phone] Amador Lopez MD Hemoglobin A1c10/13/2024Patient Outreach [facility] [address] [place] [address] Miguel Blank MA from Last [...] other written material from your doctor or pharmacy?Fqojvtylj66/03/2024Social Connection and Isolation PanelAnswerDate RecordedIn a typical week, how many times do you talk on the phone with family, friends, or neighbors?Three times a week01/22/2024How often do you get together with friends or relatives?Twice a week01/22/2024How often do you attend episcopal or confucianist services?1 to 4 times per year01/22/2024 Do you belong to any clubs or organizations such as episcopal groups, unions, fraternal or athletic groups, or school groups?No01/22/2024How often do you attend meetings of the clubs or organizations you belong to?Never01/22/2024re you , , , , never , or living with a partner?Cuvecqp1901/22/2024UDIT-CAnswerDate RecordedQ1: How often do you have a [...] and heating?Not very hard01/22/2024HQ-2AnswerDate RecordedPatient Health Questionnaire-2 [facility]ssa406[facility] [place] of Occup[facility] Health - Occupational Stress QuestionnaireAnswerDate RecordedDo you feel stress - tense, restless, nervous, or anxious, or unable to sleep at night because yourmind is troubled all the time - these days?To some kdmpok3301/22/2024Exercise Vital Sign AnswerDate RecordedOn average, how many [...] were you homeless or living in a halfway (including now)?No4Comments UnknownSex and Gender InformationValueDate RecordedSex Assigned at BirthNot on fileLegal PvtMqxfvp32/15/2023 7:18 PM EDTGender IdentityNot on fileSexual OrientationNot on file Last Filed Vital Signs Vital SignReadingTime TakenCommentsBlood Izsyrcjd214/4007 1:45 PM EDT Apllv205008/28/2024 1:45 PM ERYOijdpmaaejj72.4 ??C (97.5 ??F)08/28/2024 1:45 PM EDTRespiratory Xvak081609/04/2024 4:38 PM EDTOxygen Dzwtcdhalh40%08/28/2024 1:45 PM EDTInhaled Oxygen Concentration--Bshstr72.8 kg (165 lb)09/04/2024 4:38 PM EDT Rpruhl681.5 cm (5' 2 )09/04/2024 4:38 PM EDTBody Mass Index30.18009/04/2024 4:38 PM EDT Plan of Treatment Health MaintenanceDue DateLast DoneCommentsDiabetes: Retinopathy Screening 07/10/1955Pneumococcal Vaccine: 65+ Years (1 of 2 - PCV)07/10/1966Influenza Vaccine (#1)51, 11/23/2023, 11/23/2021, Additional history existsDiabetes: Urine Protein Qeghusiel13/29/41071003/19/2024, 03/19/2024, 03/19/2024, Additional history existsDiabetes: Hemoglobin A1C04/12/2025 10/10/2024, 10/10/2024, 03/19/2024, Additional history existsColonoscopy Xbdobrcipdbu91/22/2021Colorectal Cancer ScreeningDiscontinuedCT Colonography DiscontinuedFIT-DNADiscontinuedFITDiscontinuedFOBTDiscontinuedSigmoidoscopy Discontinued Procedures Procedure NamePriorityDate/TimeAssociated DiagnosisCommentsHEMOGLOBIN G9JQakstcr 10/10/2024 2:39 PM EDT MICROALBUMIN / CREATININE URINE WVFXKDucaopu30/29/2025 9:24 AM EST from Last 3 Months [...] in vivo glycation rates are ??affected. AVERAGE OXHIFBQ891wd/dLPROMEDICAComment: ?? PERFORMED AT [facility] [address],[place] [address] Specimen (Source)Anatomical Location / LateralityCollection Method / Volume Collection TimeReceived Time10/10/2024 2:39 PM EDT10/10/2024 6:16 PM EDT Narrative Authorizing ProviderResult TypeResult StatusMarc John QUICK BLOOD ORDERABLES Final ResultPerforming OrganizationAddressCity/State/ZIP CodePhone Number [place] * (ABNORMAL) Microalbumin / creatinine urine ratio (03/19/2024 9:24 AM EST) ComponentValueRef RangeTest MethodAnalysis TimePerformed AtPathologist SignatureMICROALBUMIN, NJDGT700.1(H)0.0 - 1.9 mg/dLPROMEDICAURINE CREAT66.27 mg/dLPROMEDICAALB/CREAT RATIO3,668.3(H)0.0 - 30.0 mg/g creatPROMEDICAComment: PERFORMED AT [facility] [address],[place] [address] Specimen (Source)Anatomical Location / LateralityCollection Method / Volume Collection TimeReceived Time03/19/2024 9:24 AM EST03/19/2024 10:41 AM EST Narrative Authorizing ProviderResult TypeResult StatusMarc John QUICK URINE ORDERABLES Final ResultPerforming OrganizationAddressCity/State/ZIP CodePhone Number [place] from Last 3 Months or Most Recently Relevant to Health Maintenance Insurance Care Teams Team MemberRelationshipSpecialtyStart DateEnd Date Amador Lopez MD PCP - GeneralFamily Medicine04/25/23 Amador Lopez MD [address] [place] [address] BAO Tijerina MA02/20/24
--- OUTSIDE RECORDS SUMMARY | 2024-12-14 15:24 | XMS_ITS | CCD ---
Author Organization [facility] Care Team Providers Care Speech Therapist Name Role Phone ROSIE MELLO Unavailable Unavailable [...] GREGORIO H Admitting Unavailable WEST, DR CHRYSTAL Howadr Consulting Unavailable FAWWAD, GREGORIO H Attending Unavailable FAWWAD, GREGORIO H Consulting Unavailable NADERER, DR AMADOR Arcos [facility] Unavailable TYSON, DR ANN Consulting Unavailable TYSON, DR ANN Attending Unavailable TYSON, DR ANN Admitting Unavailable MOUKARBEL, DR FIGUERAO Attending Unavailable MOUKARBEL, DR FIGUEROA Admitting Unavailable [...] Unavailable Amador Abdalla MD Primary Care Provider [facility], [place] Unavailable [phone] Miguel Blank MA Unavailable Unavailable Amador Abdalla MD Primary Care Provider [phone] Amador Abdalla MD Primary Care Provider Amador Abdalla MD Unavailable Sharon De La [...] Unavailable Amador Abdalla MD Primary Care Provider Amador Abdalla MD Primary Care Provider AMADOR [...] of OnsetReaction(s) Facility (7 sources)Clindamycin; Translations: [CLINDAMYCIN]Drug Tqoptnh04-06-2850 Difficulty SwallowingThe [facility] ([facility] source)CodeineDrug Fijfnut66-59-3778Pvq [facility] (2 sources)cyclobenzaprine; Translations: [Flexeril]Drug Psrbxlu45-23-0499Ett [facility] (3 sources)exenatideDrug Chrbzgi97-08-3538Pgs [facility] (6 sources)Penicillins; Translations: [PENICILLINS]Drug allergy (disorder) 59-19-6763VgohnctWfj [facility] (2 sources)Prochlorperazine; Translations: [Compazine]Drug Joebdjx65-65-5970Xfm [facility] (2 sources)Iodinated Contrast Media - IV DyeDrug allergy (disorder)16-34-2774Gtj [facility] (1 source)trival; Translations: [trival]Propensity to adverse reactions (disorder)41-39-8642Rom [facility] (4 sources)Amoxicillin; Translations: [amoxicillin]Drug Tmxyqgz23-84-4016Mrbytez ReactionSum[facility] (20 sources)cyclobenzaprine; Translations: [cyclobenzaprine]Drug Allergy 05-82-7262Inkeuxt, Hives, Rash, Other (See Comments)[facility] (20 sources)Doxycycline; Translations: [doxycycline]Drug Vhmtkbi55-51-4324 DiarrheaSum[facility] (20 sources)exenatide; Translations: [exenatide]Drug Chqvinf82-60-7316Zevygy Only, Rash, GI DisturbanceSumma Health [facility] Campus (20 sources)Prochlorperazine; Translations: [prochlorperazine]Drug Allergy 23-93-1143Jazbp (See Comments)[facility] (20 sources)Sucralfate; Translations: [sucralfate]Drug Vzkjkew56-92-4321Ozsbp, Other (See Comments)[facility] (20 sources)traZODone; Translations: [trazodone]Drug Xlubudv86-02-9040Ogmgcu Only, GI intolerance, GI DisturbanceSum[facility] (20 sources)Iodinated Contrast Media; Translations: [Iodinated Contrast Media] Allergy to parcqjoyf62-19-4189Gieoz, Other (See Comments)[facility] (5 sources)Clindamycin; Translations: [clindamycin]Drug Avwvnum37-35-1587 Anaphylaxis, Other (See Comments)[facility] [employer] [facility] (2 sources)Penicillins; Translations: [Penicillins]Allergy to drug (finding)[facility] 250 DO Work Phone: (1 source)ClindamycinDrug Acatdtt89-89-9257BbvfohzdrSumma Health [facility] Repository (1 source)PenicillinsDrug allergy (disorder)12-62-0665XnokhouvuSumma Health [facility] Campus Rep[facility] (1 source)ClindamycinDrug AllergyThe [facility] (1 source)cyclobenzaprineDrug AllergyThe [facility] (1 source)LevamisoleDrug Kgwozur98-68-2025Pok [facility] (1 source)liraglutideDrug Fxcbyni53-70-0859Aon [facility] (1 source)ProchlorperazineDrug AllergyThe [facility] (2 sources)[place] (28)Drug allergy (disorder)The [facility] (1 source)Misc-DrugDrug allergy (disorder)The [facility] (20 sources)Codeine; Translations: [CODEINE]Drug Rdaklmv77-45-1359Sdytx, Other (See Comments)[facility] (20 sources)levoFLOXacin; Translations: [LEVOFLOXACIN]Drug Xalscdt22-92-8007POZA [facility] (20 sources)liraglutide; Translations: [LIRAGLUTIDE]Drug Uvoefeh08-93-2957Vrseub OnlyNONJ Healthcare (20 sources)PenicillinsDrug Gbqicym86-30-8117Htbrdbi, Hives, RashNOMS Healthcare (20 sources)PromethazineDrug Jydquph18-48-3310XPHC [facility] (20 sources)Ticagrelor; Translations: [TICAGRELOR]Propensity to adverse akrlgwdte50-65-5178THNF [facility] (1 source)Clindamycin; Translations: [Cleocin HCl]Drug AllergyFisher [facility] (1 source)Penicillin; Translations: [penicillin]Drug [facility]ergyDay[facility] ([facility] source)[place] Prefilled Pen; Translations: [[place] Prefilled Pen]Propensity to adverse reactions (disorder)[facility] Rep[facility] (6 sources)Contrast media; Translations: [DYE]Propensity to adverse reactions to drug (disorder)12-21-8462GautqplcuuMadison [facility] Rep[facility] (6 sources)OTHER; Translations: [OTHER]Propensity to adverse reactions (disorder)40-85-4945NoneFfjyncbvoyMount St. Mary [facility] Rep[facility] (5 sources)Ethinyl Estradiol; Translations: [ETHINYL ESTRADIOL]Drug Allergy 53-38-1252Eyljl (See Comments)[facility] Repository (5 sources)Levonorgestrel; Translations: [LEVONORGESTREL]Drug Uoaxaqv98-63-7625 Other (See Comments)[facility] Repository (3 sources)liraglutideDrug Zqpqddj69-55-8884IC [facility] [employer] [facility] (3 sources)PenicillinsPropensity to adverse reactions to dhaz33-91-0669Azxswp Swelling, Hives, Itching, Other (See Comments), [facility] (3 sources)TicagrelorDrug Fupemkb15-17-2974IdzIhejkt [employer] [facility] Medications Current Medications MedicationDrug Class(es)DatesSig (Normalized)Sig (Original)acetaminophen 500 mg oral tablet (20 sources)Start: 11-26-2024 End: 77-54-0917ewlg 2 tablets by mouth every eight hoursacetaminophen [...] oral tablet (20 sources)Opioid AgonistStart: 06-09-2024 End: 00-56-4181pkvu 1 tablet by mouth four times daily as needed for pain HYDROcodone-acetaminophen ([place]) 5-325 MG tablet Indications: Primary osteoarthritis of both kneesTake 1 tablet by mouth 4 (four) times a day as needed for severe pain 90 tablet 06/09/2024 07/09/2024 ActiveStart: 02-25-2024 End: 79-18-5511hvee 1 tablet by mouth four times daily as needed for pain HYDROcodone-acetaminophen ([place]) 5-325 MG tablet Indications: Primary osteoarthritis of both kneesTake 1 tablet by mouth 4 (four) times a day as needed for severe pain 90 tablet 02/25/2024 03/26/2024 ActiveStart: 09-24-2023 End: 29-51-3332vdfi 1 tablet by mouth three times daily as needed for pain HYDROcodone-acetaminophen ([place]) 5-325 MG tablet Indications: Primary osteoarthritis of both kneesTake 1 tablet by mouth 3 (three) times a day as needed for severe pain 90 tablet 01/23/2024 02/25/2024 DiscontinuedStart: 59-22-3244eczs 1 tablet by mouth every eight hoursHydrocodone-Acetaminophen Active 1 TAB PO Q8H June 24, 2021 4:16amalogliptin 6.25 mg oral tablet (8 sources)Start: 05-23-2024 End: 63-06-5943jfya 1 tablet by mouth once dailyalogliptin ([place]) 6.25 MG tablet tablet Indications: Type 2 diabetes mellitus with hyperglycemia,without long-term current use of insulin ([facility]) Take 1 tablet (6.25 mg) by mouth Daily 30 mjivah5505/23/2024 06/22/2024 ActiveamLODIPine 5 mg oral tablet (20 sources)Dihydropyridine Calcium Channel BlockerStart: 89-48-1066cajd 2 tablets by mouth in the morningamLODIPine (NORVASC) 5 mg tablet Take 2 tablets (10 mg total) by mouth in the morning. 12/02/2024 ActiveStart: 41-39-7060Nvwjz: 15-64-7602Dpkfx: 11-30-2024 End: 78-93-5407kwha 5 mg by mouth every twelve hoursStart: 02-21-2024 End: 01-84-6899rexf 1 tablet by mouth once dailyamLODIPine (Norvasc) 10 MG tablet Indications: Coronary artery disease due to lipid rich plaque TAKE 1 TABLET BY MOUTH EVERY DAY 90 tablet 3 02/21/2024 08/28/2024 DiscontinuedStart: 66-36-4336faon 10 mg by mouth once dailyAmlodipine Active 10 MG PO Daily June 24, 2021 4:16amaspirin 81 mg oral tablet (20 sources)Platelet Aggregation Inhibitor, Nonsteroidal Anti-inflammatory Drug Start: 40-07-3151pwje 81 mg by mouth once dailyAspirin Active [...] TOUCH ULTRA 2) w/Device kit (17 sources)Start: 90-43-2956Sguvm Glucose Monitoring Suppl (ONE TOUCH ULTRA 2) w/Device kit Indications: Type 2 diabetes mellitus with hyperglycemia, without long-term current use of insulin ([facility]) USE DIRECTED 1 kit 05/26/2024 Active Start: 34-94-5397Fuqfh Glucose Monitoring Suppl (ONE TOUCH ULTRA 2) w/Device kit Indications: Type 2 diabetes mellitus with hyperglycemia, without long-term current use of insulin ([facility]) USE DIRECTED 1 kit 05/26/2024 ActiveStart: 02-81-1316Jjvem Glucose Monitoring Suppl (ONE TOUCH ULTRA 2) w/Device kit Indications: Type 2 diabetes mellitus with hyperglycemia, without long-term current use of insulin ([facility]) 1 each Daily 1 kit 03/20/2024 Activecalcium citrate 950 mg oral tablet (5 sources)Start: 95-23-0067eltkeqs citrate (CALCITRATE) 200 mg (950 mg) tablet Take 2 tablets (400 mg total) by mouth in the morning and 2 tablets (400 mg total) at noon and 2 tablets (400 mg total) in the evening. Take with meals. 12/01/2024 ActiveStart: 90-39-0656Xfpqj: 11-27-2024 End: 87-92-8022jemysuhk 300 mg oral capsule (1 source)Cephalosporin AntibacterialStart: 03-11-2024 End: 42-41-2363ygqe 1 capsule by mouth in the morningcefdinir (Omnicef) 300 MG capsule Indications: Upper respiratory tract infection, unspecified type Take 1 capsule (300 mg) by mouth in the morning and 1 capsule (300 mg) before bedtime. Do all this for 10 days. 20 capsule 03/11/2024 03/21/2024 Activecefuroxime 250 mg oral tablet (4 sources)Cephalosporin AntibacterialStart: 11-30-2024 End: 30-19-5216Erdwy: 11-28-2024 End: 44-28-8317jnmsbppvbfdhfsv 0.05 mg oral tablet (20 sources)Vitamin DStart: 14-14-6438Lnouy: 04-36-4532Mqspw: 11-27-2024 End: 04-13-9904yybz 1 tablet by mouth in the morningcholecalciferol, vitamin D3, 2,000 units tablet Take 1 tablet (2,000 Units total) by mouth in the morning. 12/02/2024 ActiveStart: 43-17-4836blii 1 tablet by mouth once daily cholecalciferol (Vitamin D3) 25 MCG (1000 UT) tablet Indications: Vitamin D deficiency, unspecified, Vitamin D deficiency TAKE 1 TABLET BY MOUTH EVERY DAY 90 tablet 3 03/24/2024 ActiveStart: 18-56-1899vyal 1 tablet by mouth once daily cholecalciferol (Vitamin D3) 25 MCG (1000 UT) tablet Indications: Vitamin D deficiency, unspecified, Vitamin D deficiency TAKE 1 TABLET BY MOUTH EVERY DAY 90 tablet 3 03/20/2023 ActiveContinuous Glucose Numerical Control Programmer (FreeStyle Violet 3 [place]) device (13 sources)Start: 73-57-0841Njcnvyrkoz Glucose Numerical Control Programmer (FreeStyle Violet 3 [place]) device Indications: Type 2 diabetes mellituswith hyperglycemia, without long-term current use of insulin ([facility]) 1 each continuously 1 each 05/27/2024 ActiveStart: 12-21-7069Yhuvkgvfld Glucose Numerical Control Programmer (FreeStyle Violet 3 [place]) device Indications: Type 2 diabetes mellituswith hyperglycemia, without long- term current use of insulin ([facility]/HCC) 1 each continuously 1 each 05/27/2024 ActiveContinuous Glucose Sensor (FreeStyle Violet 3 Sensor) misc (13 sources)Start: 16-32-7417Pvdiavrhnd Glucose Sensor (FreeStyle Violet 3 Sensor) [facility]: Type 2 diabetes mellitus with hyperglycemia, without long-term current use of insulin ([facility]) 1 each continuously 2 each 11 05/27/2024 ActiveStart: 83-93-7210Zjimxvbvhn Glucose Sensor (FreeStyle Violet 3 Sensor) [facility] [place]ications: Type 2 diabetes mellitus with hyperglycemia, without long-term current use of insulin ([facility]) 1 each continuously 2 each 11 05/27/2024 Active docusate sodium 50 mg / sennosides, fdc 8.6 mg oral tablet (5 sources)Start: 58-84-2214scnr 2 tablets by mouth once dailysennosides- docusate sodium (SENOKOT-S) 8.6-50 mg Take 2 tablets by mouth nightly. 12/01/2024 ActiveStart: 11-26-2024 End: 70-79-1739bjpxzrcddatnm 25 mg oral tablet (20 sources)Sodium-Glucose Cotransporter 2 InhibitorStart: 05-23-2024 End: 58-32-2690jjtd 1 tablet by mouth once dailyempagliflozin (Jardiance) 25 MG Indications: Type 2 diabetes mellitus with hyperglycemia, without long-term current use of insulin ([facility]) TAKE 1 TABLET BY MOUTH EVERY DAY 30 tablet 5 06/03/2024 Activefamotidine 40 mg oral tablet (20 sources)Histamine-2 Receptor AntagonistStart: 45-84-0303lbky 1 tablet by mouth once dailyfamotidine (Pepcid) 40 MG tablet Indications: Gastroesophageal reflux disease without esophagitis TAKE 1 TABLET BY MOUTH EVERY DAY 90 tablet 3 05/07/2024 Activefluticasone propionate 0.05 mg/actuat metered dose nasal spray (20 sources)CorticosteroidStart: 50-76-7745kxaj 2 spray(s) nasal route once dailyfluticasone (Flonase) 50 MCG/ACT nasal spray Indications: Upper respiratory tract infection, unspecified type Administer 2 sprays into each nostril Daily Shake gently. Before first use, prime pump. After use, clean tip and replace cap. 05/27/2024 ActiveStart: 65-23-7653huaq 1 spray(s) nasal route once daily fluticasone (Flonase) 50 MCG/ACT nasal spray Indications: Upper respiratory tract infection, unspecified type SPRAY 1 SPRAY INTO EACH NOSTRIL DAILY 16 mL 2 10/31/2022 ActiveStart: 26-44-8768Ehxtumtxhcn Furoate Active 2 INH INHALATION Daily June 24, 2021 4:16amtake 2 spray(s) nasal route once as needed for rhinitisfluticasone propionate (FLONASE) 50 mcg/actuation nasal spray Administer 2 sprays into each nostrilas needed for rhinitis (both nostrils q24 prn). Activefurosemide 20 mg oral tablet (20 sources)Loop DiureticStart: 33-04-2631xnsn 1 tablet by mouth once daily furosemide (Lasix) 20 MG tablet Indications: Chronic diastolic heart failure (HCC) Take 1 tablet (20 mg) by mouth Daily 90 tablet 3 11/12/2023 ActiveStart: 06-24-2021 End: 22-25-4839iqdt 40 mg by mouth once dailyFurosemide Active 40 MG PO Daily June 24, 2021 4:16am1 ml heparin sodium, porcine 5000 unt/ml injection (5 sources)Unfractionated Heparin, Anti-coagulantStart: 11-28-2024 End: 51-22-9196uxdszl 1 mL by subcutaneous injection every eight hoursheparin sodium,porcine (heparin, porcine,) 5,000 unit/mL injection Inject 1 mL (5,000 Units total) under the skin every 8 (eight) hours for 28 days. 12/01/2024 12/29/2024 ActivehydrALAZINE hydrochloride 100 mg oral tablet (20 sources)Arteriolar VasodilatorStart: 32-82-6373chtfITZFGGQ (APRESOLINE) 100 mg tablet Take 0.5 tablets (50 mg total) by mouth at noon and 0.5 tablets (50 mg total) before bedtime. 12/01/2024 ActiveStart: 11-30-2024 End: 88-11-0002Ddoqd: 11-26-2024 End: 62-11-3648Xjgmi: 02-21-2024 End: 45-02-1049Caalq: 03-50-7186spja 50 mg by mouth twice dailyHydralazine Active 50 MG PO Twice daily June 24, 2021 4:16amisopropyl alcohol 0.7 ml/ml medicated pad (1 source)Start: 98-17-3587Ueuugyn Swabs (Alcohol Prep) pads Indications: Type 2 diabetes mellitus with hyperglycemia, withoutlong-term current use of insulin (HCC) Use as directed 100 each 3 09/03/2024 Active3 ml liraglutide 6 mg/ml pen injector (1 source)GLP-1 Receptor AgonistStart: 86-86-3165iskfvk 0.6 mg by subcutaneous injection once daily, then inject 1.2 mg by subcutaneous injection once daily Liraglutide (Victoza 3-Dae) 0.6 mg/0.1 mL (18 mg/3 mL) pen injector Active 1.2 MG SUBCUT Daily 6 30May 2021 10:54am 0.6mg sq daily x 1 week then 1.2 mg sq daily thereafter if well toleratedlosartan potassium 50 mg oral tablet (1 source)Angiotensin 2 Receptor BlockerStart: 54-58-4168dqrc 50 mg by mouth once dailyLosartan Active 50 MG PO Daily June 24, 2021 4:16am24 hr metFORMIN hydrochloride 500 mg extended release oral tablet (1 source)BiguanideStart: 89-87-4950pgjg 500 mg by mouth twice dailyMetformin Active 500 MG PO Twice daily June 24, 2021 4:16ammethocarbamol 750 mg oral tablet (17 sources)Muscle RelaxantStart: 30-42-6570cqlmugecbmrob (Robaxin) 750 MG tablet Take 750 mg by mouth in the morning and 750 mg at noon and 750 mg in the evening and 750 mg before bedtime. 12/05/2021 Activemetoclopramide 5 mg oral tablet (20 sources)Dopamine-2 Receptor AntagonistStart: 10-29-2023 End: 36-08-9303jrqx 1 tablet by mouth four times dailymetoclopramide (Reglan) 5 MG tablet Indications: Early satiety TAKE 1 TABLET BY MOUTH FOUR TIMES A DAY 120 tablet 5 10/29/2023 Activenaloxone (NARCAN) 4 mg/actuation spray,non-aerosol nasal spray (2 sources)Start: 97-01-6658wddzkysx (NARCAN) 4 mg/actuation spray,non-aerosol nasal spray Administer 1 spray (4 mg total) intoalternating nostrils as needed for opioid reversal. 12/01/2024 Activenystatin 100 unt/mg topical powder (20 sources)Polyene AntifungalStart: 11-13-3068cdwgefjn (Mycostatin) 095679 UNIT/GM powder Indications: Skin candidiasis Apply 1 application topically in the morning and 1 application in the evening and 1 application before bedtime. 60 g 3 11/12/2023 Active End: 07-79-6477ooffekcu (Mycostatin) 859337 UNIT/GM powder Apply 100 application topically in the morning and 100 application in the evening and 100 application before bedtime. 11/12/2023 Discontinued (Reorder)oxyCODONE hydrochloride 5 mg oral tablet (4 sources)Opioid AgonistStart: 11-26-2024 End: 43-27-1400hpnukgdkmpup 40 mg delayed release oral tablet (20 sources)Proton Pump InhibitorStart: 03-58-6591dndd 1 tablet by mouth twice dailypantoprazole (ProtoNix) 40 MG EC tablet Indications: Gastroesophageal reflux disease without esophagitis TAKE 1 TABLET BY MOUTH TWICE A DAY 180 tablet 3 02/04/2024 Activesacubitril 24 mg / valsartan 26 mg oral tablet (16 sources)Angiotensin 2 Receptor BlockerStart: 05-23-2024 End: 03-45-5881brpx 24-26 mg by mouth at bedtimesacubitril-valsartan (Entresto) 24-26 MG tablet Indications: Chronic diastolic heart failure (HCC) TAKE 1 TABLET BY MOUTH IN THE MORNING AND BEFORE BEDTIME 60 tablet 5 06/03/2024 Active SITagliptin 25 mg oral tablet (20 sources)Dipeptidyl Peptidase 4 InhibitorStart: 41-78-9811qhpr 1 tablet by mouth once dailyJanuvia 25 MG tablet Indications: Type 2 diabetes mellitus with hyperglycemia (CMS/HCC) TAKE 1 TABLET BY MOUTH EVERY DAY 90 tablet 1 09/21/2023 Activesucralfate 1000 mg oral tablet (20 sources)Aluminum ComplexStart: 90-74-1885gfan 1 tablet by mouth once daily at bedtimesucralfate (Carafate) 1 g tablet Indications: Gastro-esophageal reflux disease without esophagitis , Esophageal reflux TAKE 1 TABLET BY MOUTH EVERYDAY AT BEDTIME 90 tablet 3 06/03/2024 ActiveStart: 26-24-2676rkgr 1 tablet by mouth once daily at bedtimesucralfate (Carafate) 1 g tablet Indications: Gastro- esophageal reflux disease without esophagitis , Esophageal reflux TAKE 1 TABLET BY MOUTH EVERYDAY AT BEDTIME 90 tablet 3 05/11/2023 Activesulfamethoxazole 800 mg / trimethoprim 160 mg oral tablet (2 sources)Dihydrofolate Reductase Inhibitor Antibacterial, Sulfonamide AntimicrobialStart: 11-12-2023 End: 69-73-9577otuf 1 tablet by mouth once in the morningsulfamethoxazole- trimethoprim (Bactrim DS) 800-160 MG per tablet Indications: Acute UTI Take 1 tablet by mouth in the morning and at noon for 7 days 14 tablet 11/12/2023 11/19/2023 Activetemazepam 7.5 mg oral capsule (20 sources)BenzodiazepineStart: 09-03-2024 End: 46-21-0057pxybviakx (Restoril) 7.5 MG capsule Indications: Primary insomnia Take 1 capsule (7.5 mg) by mouth as needed at bedtime for sleep 30 capsule 09/03/2024 10/03/2024 ActiveStart: 09-20-2023 End: 52-79-2132qgjb 1 capsule by mouth once daily at bedtimetemazepam (Restoril) 15 MG capsule Indications: Primary insomnia TAKE 1 CAPSULE BY MOUTH EVERYDAY AT BEDTIME 30 capsule 1 03/26/2024 09/03/2024 Discontinued (Reorder)Start: 95-61-1358mkhm 30 mg by mouth at bedtimeTemazepam Active 30 MG PO Bedtime June 24, 2021 4:16amticagrelor 90 mg oral tablet (1 source)Start: 00-13-8825ovmi 1 tablet by mouth twice dailyTicagrelor (Brilinta) 90 mg Tablet Active 90 MG PO Twice daily 180 90 June 24, 2021 4:10pm zinc oxide 0.3 mg/mg topical ointment (2 sources)Start: 11-63-3881Jouy Oxide (Pinxav) 30 % ointment Indications: Skin breakdown Apply 1 Application topically if needed (Skin breakdown) 113.4 g 2 03/20/2024 Active (2 sources)Start: 12-01-2024 Completed/Discontinued Medications MedicationDrug Class(es)DatesSig (Normalized)Sig (Original)ALPRAZolam 0.25 mg oral tablet (20 sources)BenzodiazepineStart: 11-26-2024 End: 85-20-0266Faehm: 67-87-9497ugnq 1 tablet by mouth three times daily as neededALPRAZolam (Xanax) 0.5 MG tablet Indications: Generalized anxiety disorder (CMS/HCC) TAKE 1 TABLET BY MOUTH THREE TIMES A DAY NEEDED 90 tablet 10/04/2023 ActiveStart: 06-91-5473uwzn 0.5 mg by mouth three times daily Alprazolam Active 0.5 MG PO Three times daily June 24, 2021 4:16amaprepitant 40 mg oral capsule (1 source)Substance P/Neurokinin-1 Receptor AntagonistStart: 11-27-2024 End: 99-26-4309hyejhpgsongv 40 mg oral tablet (20 sources)HMG-CoA Reductase InhibitorStart: 11-27-2024 End: 35-93-9575Rmyiv: 26-07-4865zrry 1 tablet by mouth once daily at bedtime atorvastatin (Lipitor) 80 MG tablet Indications: Dyslipidemia TAKE 1 TABLET BY MOUTH EVERYDAY AT BEDTIME 90 tablet 3 06/03/2024 ActiveStart: 06-24-2021 End: 22-69-5911yldi 40 mg by mouth at bedtimeAtorvastatin Discontinued 40 MG PO Bedtime June 24, 2021 4:16am June 25, 2021 11:27am24 hr buPROPion hydrochloride 150 mg extended release oral tablet (20 sources)AminoketoneStart: 06-24-2021 End: 91-59-6660qjfe 1 tablet by mouth every twenty-four hours in the morning buPROPion XL (WELLBUTRIN XL) 150 mg 24 hr tablet Take 1 tablet (150 mg total) by mouth in the morning. Activecarvedilol 25 mg oral tablet (20 sources)alpha-Adrenergic Tung, beta-Adrenergic BlockerStart: 12-01-2024 End: 72-43-7100Mijov: 11-27-2024 End: 80-87-6805Tfqbv: 91-93-5075bije 1 tablet by mouth in the morningcarvedilol (Coreg) 25 MG tablet Indications: Benign essential hypertension Take 1 tablet (25 mg) bymouth in the morning and 1 tablet (25 mg) in the evening. Take with meals. 60 tablet 5 03/31/2024 ActiveStart: 27-59-2508gzpw 12.5 mg by mouth twice daily at mealtimeCarvedilol Active 12.5 MG PO Twice daily with meals 60 30 June 24, 2021 4:10pmceFAZolin (ANCEF) 2,000 mg in sodium chloride 0.9 % 50 mL IVPB W/ADAPTER (1 source)Start: 11-27-2024 End: 98-96-1395rqrw 2000 mg intravenously every eight hoursclopidogrel 75 mg oral tablet (13 sources)P2Y12 Platelet InhibitorStart: 06-02-2022 End: 03-20-3603uyka 1 tablet by mouth in the morningclopidogrel (Plavix) 75 MG tablet Take 1 tablet by mouth in the morning. 06/02/2022 02/29/2024 Discontinued Continuous Glucose Numerical Control Programmer (Dexcom G7 Numerical Control Programmer) device (9 sources)Start: 02-29-2024 End: 79-25-3557Qtcyckmyuo Glucose Numerical Control Programmer (Dexcom G7 Numerical Control Programmer) device Indications: Type 2 diabetes mellitus with hyperglycemia, without long-term current use of insulin ([facility]) 1 each continuously 1 each 02/29/2024 05/27/2024 DiscontinuedStart: 52-20-9239Tmzvkmcbbk Glucose Numerical Control Programmer (Dexcom G7 Numerical Control Programmer) device Indications: Type 2 diabetes mellitus with hyperglycemia, without long-term current use of insulin ([facility]) 1 each continuously 1 each 02/29/2024 ActiveContinuous Glucose Sensor (Dexcom G7 Sensor) misc (9 sources)Start: 02-29-2024 End: 13-42-6265Hedzsrropg Glucose Sensor (Dexcom G7 Sensor) misc Indications: Type 2 diabetes mellitus with hyperglycemia, without long-term current use of insulin ([facility]) 1 each continuously 1 each 11 DiscontinuedStart: 97-80-8902Ivgzedpcfa Glucose Sensor (Dexcom G7 Sensor) misc Indications: Type 2 diabetes mellitus with hyperglycemia, without long-term current use of insulin ([facility]) 1 each continuously 1 each 11 5Active ergocalciferol 1.25 mg oral capsule (1 source)Provitamin D2 CompoundStart: 11-28-2024 End: ml fentaNYL 0.05 mg/ml injection (2 sources)Opioid AgonistStart: 11-26-2024 End: 01-16-0648nzxpjSIAW 10 mg oral tablet (1 source)SulfonylureaStart: 06-24-2021 End: 34-25-7938qwor 10 mg by mouth once dailyGlipizide Discontinued 10 MG PO Daily June 24, 2021 4:16am June 25, 2021 11:27amglucagon (rdna) 1 mg injection (2 sources)Antihypoglycemic AgentStart: 11-26-2024 End: 83-49-5360897 ml glucose 50 mg/ml injection (6 sources)Start: 11-26-2024 End: 59-25-6683Qajqk: 11-26-2024 End: 02-91-5368Thhho: 11-26-2024 End: .5 ml HYDROmorphone hydrochloride 1 mg/ml prefilled syringe (1 source)Opioid AgonistStart: 11-26-2024 End: 12-18-6917ehon 0.25 mg intravenously every two hours as needed3 ml insulin lispro 100 unt/ml pen injector (19 sources)Insulin AnalogStart: 11-26-2024 End: 04-62-4605Hjacz: 05-23-2024 End: 50-23-0543ehqcsfr lispro (HumaLOG) 100 UNIT/ML injection Indications: Type 2 diabetes mellitus with hyperglycemia, without long-term current use of insulin (HCC) INJECT 2-10 UNITS UNDER THE SKIN IN THE MORNINGAND 2-10 UNITS AT NOON AND 2-10 UNITS IN THE EVENING. INJECT WITH MEALS. 151-200=2 UNITS, [phone], 251-300=6 UNITS, 301-350=8 UNITS, 351-400=10 UNITS, OVER 400 CALL PROVIDER. 15 each 3 06/03/2024 Gqpefi65 hr isosorbide mononitrate 30 mg extended release oral tablet (20 sources)Nitrate VasodilatorStart: 12-01-2024 End: 58-76-9658Cihea: 05-23-2024 End: 79-59-0853ilmt 1 tablet by mouth once dailyisosorbide mononitrate ER (Imdur) 30 MG 24 hr tablet Indications: Chronic diastolic heart failure (HCC) TAKE 1 TABLET BY MOUTH EVERY DAY *DO NOT CRUSH OR CHEW* 30 tablet 5 06/03/2024 Active4 ml labetalol hydrochloride 5 mg/ml cartridge (2 sources)beta-Adrenergic BlockerStart: 11-30-2024 End: 98-58-2799qznxtphndhu 10 mg oral tablet (20 sources)Leukotriene Receptor AntagonistStart: 06-24-2021 End: 18-03-9677ltfzzuuewjmdx 0.4 mg sublingual tablet (20 sources)Nitrate VasodilatorStart: 31-62-2630Jfrgmeuwkmyej 0.4 MG Sublingual Tablet Sublingual DISSOLVE 1 TABLET UNDER TONGUE NEEDED CHEST PAIN. MAY REPEAT EVERY 5 MINUTES IF NEEDED, AFTER 3RD DOSE CALL 911 Quantity: 1 Refills: 3 Ordered: 21-Oct-2021 Zafar Bolivar DO Start : 21-Oct-2021 Active2 ml ondansetron 2 mg/ml injection (20 sources)Serotonin-3 Receptor AntagonistStart: 11-26-2024 End: 33-32-5867opns 4 mg intravenously every four hours as needed for nausea Start: 73-43-6978yldqardqnvf ODT (Zofran-ODT) 4 MG disintegrating tablet Indications: Nausea DISSOLVE 1 TABLET ON THE TONGUE EVERY 6 HOURS NEEDED FOR NAUSEA/ VOMITING 56 tablet 2 02/21/2023 ActiveStart: 43-76-5588rhve 4 mg by mouth every six hoursOndansetron Active 4 MG PO Q6H June 24, 2021 4:16am PARoxetine hydrochloride 20 mg oral tablet (20 sources)Serotonin Reuptake InhibitorStart: 11-30-2024 End: 83-21-9063Zjrbn: 89-83-5523sksb 1 tablet by mouth in the morningPARoxetine (PAXIL) 40 mg tablet Take 1 tablet (40 mg total) by mouth in the morning. 05/17/2024 ActiveStart: 96-07-1024sjwq 1 tablet by mouth once dailyPARoxetine (Paxil) 40 MG tablet Indications: Major depressive disorder, recurrent episode, mild (HCC) (CMS/HCC) TAKE 1 TABLET BY MOUTH EVERY DAY 90 tablet 3 11/08/2023 ActiveStart: 62-89-1812cchw 40 mg by mouth once dailyParoxetine Hcl Active 40 MG PO Daily June 24, 2021 4:16ampolyethylene glycol 3350 48771 mg powder for oral solution (5 sources)Osmotic LaxativeStart: 11-29-2024 End: 99-84-1815130 ml sodium chloride 9 mg/ml prefilled syringe (2 sources)Start: 11-28-2024 End: 16-48-7504Ahkve: 11-26-2024 End: 54-69-8420jcibawjjlh acid 650 mg oral tablet (1 source)Antifibrinolytic AgentStart: 11-27-2024 End: 11-27-2024 (1 source)Start: 11-30-2024 End: 12-01-2024 (1 source)Start: 11-28-2024 End: 11-28-2024 Problems Active Problems Problem ClassificationProblemDateDocumented DateEpisodic/ChronicAbdominal hernia (1 source)Diaphragmatic hernia without obstruction or gangrene; Translations: [DIAPH HERNIA W/O OBST/GANGRENE]Onset: 56-72-4927UxgsqzwkPoamo and unspecified renal failure (1 source)Acute kidney failure, unspecified; Translations: [ACUTE KIDNEY FAILURE UNSPECIFIED]Onset: 38-68-9579DdyzhcwhFumbt myocardial infarction (2 sources)Myocardial infarction; Translations: [Non-ST elevation (NSTEMI) myocardial infarction]04-31-3380FyqapsnFterdeb disorders (20 sources)Anxiety disorder, unspecified; Translations: [Generalized anxiety disorder]Onset: 452160-28-6802AkbzrtfGrnvwynmr infection; unspecified site (2 sources)Enterococcus as the cause of diseases classified elsewhere; Translations: [Klebsiella pneumoniae [K. pneumoniae] as the cause of diseases classified elsewhere]Onset: 47-98-9870HiaxvitmTqmyotg kidney disease (20 sources)Chronic kidney disease; Translations: [Chronic kidney disease, unspecified]Onset: 493187-36-6922UtnoathBwzbgya kidney disease (6 sources)Chronic kidney disease; Translations: [CHRONIC KIDNEY DISEASE STAGE 3B]Onset: 89-04-9934Hzmmydvlpa heart failure; nonhypertensive (20 sources)Chronic diastolic (congestive) heart failure; Translations: [Chronic diastolic heart failure]Onset: 27-99-4728EunahfhQuhdjgwx atherosclerosis and other heart disease (20 sources)Coronary arteriosclerosis; Translations: [Atherosclerotic heart disease of [place] coronary artery without angina pectoris]Onset: 06-24-2021 15-86-7948MijtagoPjwtvxcw atherosclerosis and other heart disease (5 sources)Patient post percutaneous transluminal coronary angioplasty; Translations: [Percutaneous transluminal coronary angioplasty status]Onset: 27-40-8528EnzlpenoCqlluafq mellitus with complications (20 sources)Type 2 diabetes mellitus with diabetic chronic kidney disease; Translations: [Type 2 diabetes mellitus with hyperglycemia]Onset: 12-01-2021 ChronicDiabetes mellitus without complication (11 sources)Diabetes mellitus; Translations: [Type 2 diabetes mellitus without complications]Onset: 813359-57-0697GujgupaOoscerpeo of lipid metabolism (20 sources)Pure hypercholesterolemia, unspecified; Translations: [Hyperlipidemia, unspecified]Onset: 542559-33-5046BdpjyioH Codes: Fall (2 sources)FallOnset: 60-38-5727Wgxzvzxbev disorders (20 sources)Gastroesophageal reflux disease; Translations: [Gastro-esophageal reflux disease without esophagitis]Onset: 793305-27-2653FhtmvxpCfmmzutfq hypertension (20 sources)Hypertensive disorder; Translations: [Essential (primary) hypertension]Onset: 928057-34-7548JhpvtiwZuguuqvk of neck of femur (hip) (11 sources)Fracture of unspecified part of neck of right femur, initial encounter for closed fracture; Translations: [Closed fracture of hip]Onset: 632704-13-9309TsbedmhrGxefmxvbssbpe symptoms and ill-defined conditions (20 sources)Overflow incontinence of urine; Translations: [Overflow incontinence]Onset: 865407-93-8445QrjtlzdRankydxzzzhpt symptoms and ill- defined conditions (5 sources)Urgency of urination; Translations: [Dysuria]Onset: 05-26-2022 EpisodicHypertension with complications and secondary hypertension (2 sources)Hypertensive heart and chronic kidney disease with heart failure and stage 1 through stage 4 chronic kidney disease, or unspecified chronic kidney disease; Translations: [Hypertensive heart disease with heart failure]Onset: 12-53-4250CsmdiwtMjvehcrofaefy mental health disorders (20 sources)Psychophysiologic insomnia; Translations: [Primary insomnia]Onset: 205551-32-5542RkhoacvIfmq disorders (20 sources)Depressive disorder; Translations: [Depression]Onset: 09-01-2021 25-67-5642IdzhrmfQenwynp (9 sources)Candidiasis of skin and nail; Translations: [Candidiasis of skin] Onset: 057260-38-7802QxhgfbqsUhrlxnxslub chest pain (1 source)Chest pain; Translations: [Chest pain, unspecified]EpisodicNutritional deficiencies (20 sources)Vitamin D deficiency, unspecified; Translations: [Vitamin D deficiency]Onset: 947006-54-0548CeojqrcVotshdakp or stenosis of precerebral arteries (2 sources)Occlusion and stenosis of bilateral carotid arteries; Translations: [Occlusion and stenosis of bilateral carotid arteries]Onset: 58-47-8562Wgayedc Osteoarthritis (20 sources)Primary gonarthrosis, bilateral; Translations: [Bilateral primary osteoarthritis of knee]Onset: 815983-99-5345NjzzkylHkkwc acquired deformities (1 source)Other forms of scoliosis, lumbar region; Translations: [OTHER FORMS SCOLIOSIS LUMBAR REGION]Onset: 83-71-4686StnmhgqMypfq aftercare (1 source)senior care (current) use of aspirin; Translations: [[facility] CURRENT USE OF ASPIRIN]Onset: 62-98-1852VvtbsteiHhnhx and ill-defined cerebrovascular disease (20 sources)Cerebrovascular disease; Translations: [Cerebrovascular disease, unspecified]Onset: 942942-96-9150BpeimrpEhezy circulatory disease (1 source)Personal history of transient ischemic attack (TIA), and cerebral infarction without residual deficits; Translations: [PERS HX TIA AND CI NO RESID DEFICIT]Onset: 45-35-7021GacsthpuXvuhv connective tissue disease (1 source)History of repair of hip joint; Translations: [Presence of unspecified artificial hip joint]16-70-1016SvqtewpOsaaw connective tissue disease (2 sources)History of hemiarthroplasty of right hip; Translations: [Presence of right artificial hip joint]Onset: 263655-28-7010UdtaoceRxrxe connective tissue disease (1 source)Presence of unspecified artificial hip joint; Translations: [Presence of unspecified artificial hipjoint]Onset: 14-70-7589IraelrjFcqfs connective tissue disease (3 sources)Fibromyalgia; Translations: [Myalgia and myositis, unspecified]Onset: 13-01-3278JawdbifcIscol connective tissue disease (1 source)Repeated falls; Translations: [REPEATED FALLS]Onset: 05-18-2022 EpisodicOther diseases of veins and lymphatics (6 sources)Vascular insufficiency; Translations: [Venous insufficiency (chronic) (peripheral)]18-15-3067EfkmehvkOepsj gastrointestinal disorders (1 source)Other constipation; Translations: [OTHER CONSTIPATION]Onset: 44-83-2846UojyitkmJgtsz lower respiratory disease (1 source)Paroxysmal nocturnal dyspnea; Translations: [Dyspnea, unspecified] EpisodicOther nervous system disorders (1 source)Cerebral cysts; Translations: [CEREBRAL CYSTS]Onset: 82-85-1932Tjxgotv Other nervous system disorders (1 source)Other chronic pain; Translations: [OTHER CHRONIC PAIN]Onset: 38-60-6466CertcleJksst nervous system disorders (20 sources)Arachnoid cyst; Translations: [Cerebral cysts]Onset: 03-13-2023 22-77-9994UgeznztStbet nervous system disorders (1 source)Unsteadiness on feet; Translations: [UNSTEADINESS ON FEET]Onset: 30-35-6666LrjpucwcFpzna nervous system disorders (1 source)Other abnormalities of gait and mobility; Translations: [OTHER ABNORMALITIES GAIT AND MOBILITY]Onset: 11-53-1645LbbrtrkrYbwru non-traumatic joint disorders (1 source)Polyarthritis, unspecified; Translations: [POLYARTHRITIS UNSPECIFIED] Onset: 18-34-5648NfzmedvHmkpd nutritional; endocrine; and metabolic disorders (1 source)Morbid (severe) obesity due to excess calories; Translations: [MORBID SEVERE OBES D/T EXCESS SVETLANA]Onset: 50-70-8651XukswaoKyxkg nutritional; endocrine; and metabolic disorders (1 source)Body mass index (BMI) 32.0-32.9, adult; Translations: [BODY MASS INDEX BMI 32.0-32.9 ADULT]Onset: 98-11-1973HehgifrZmboi nutritional; endocrine; and metabolic disorders (12 sources)Body mass index 30+ - obesity; Translations: [Obesity, unspecified] Onset: 406673-75-5763OfphmagAgixl nutritional; endocrine; and metabolic disorders (20 sources)Obesity caused by energy imbalance; Translations: [Class 1 obesity due to excess calories with serious comorbidity and body mass index (BMI) of 33.0 to 33.9 in adult]Onset: 032321-57-5933RddtzihZglkd nutritional; endocrine; and metabolic disorders (1 source)Body mass index (BMI) 33.0-33.9, adult; Translations: [Body mass index (BMI) 33.0-33.9, adult]Onset: 92-00-8442OvlpyyiDdxnn upper respiratory infections (2 sources)Upper respiratory infection; Translations: [Acute upper respiratory infection, unspecified]60-41-2016FxpojgfeEdvrouaqhdpo fracture (2 sources)Pathological fracture due to osteoporosis; Translations: [Age-related osteoporosis with current pathological fracture, unspecified site, subsequent encounter for fracture with routine healing]Onset: 412454-55-7801Gczxrndi Residual codes; unclassified (1 source)Acquired absence of other specified parts of digestive tract; Translations: [ACQ ABSENCE OTH PART DIGESTV TRACT]Onset: 17-66-9363Bioabhbs Residual codes; unclassified (1 source)Acquired absence of both cervix and uterus; Translations: [ACQUIRED ABSENCE BOTH CERVIX AND UTERUS]Onset: 25-31-8401DquzdnpdEoqphqkvvig; intervertebral disc disorders; other back problems (1 source)Spondylosis without myelopathy or radiculopathy, cervical region; Translations: [SPONDYLS W/O MYELO-/RADICULOP CERV]Onset: 18-70-3024Zvtmxpe Spondylosis; intervertebral disc disorders; other back problems (4 sources)Dorsalgia, unspecified; Translations: [DORSALGIA UNSPECIFIED]Onset: 33-62-8900VijrevcpDgvhtvizbgfy (1 source)I21.4 - Non-ST elevation (NSTEMI) myocardial infarction; Translations: [I21.4 - Non-ST elevation (NSTEMI) myocardial infarction]Onset: 06-24-2021 Unclassified (1 source)CHRN KIDNEY DISEASE STG 3 UNSP; Translations: [CHRN KIDNEY DISEASE STG 3 UNSP]Onset: 30-66-3664Cdyemmdgrbgq (1 source)ACUTE CANDIDIASIS VULVA AND VAGINA; Translations: [ACUTE CANDIDIASIS VULVA AND VAGINA]Onset: 70-89-9096Oiguceuzfpel (1 source)CONTACT W/AND (SUSP) EXPOS COVID-19; Translations: [CONTACT W/AND (SUSP) EXPOS COVID-19]Onset: 78-87-6281Sngqhwqdbutt (1 source)EMSOnset: 51-66-2854Evguedbbbsdi (1 source)Post-opOnset: 48-84-1016Ncbybwukjhue (1 source)79 [facility] Past or Other Problems Problem ClassificationProblemDateDocumented DateEpisodic/ChronicAbdominal pain (4 sources)Unspecified abdominal pain; Translations: [UNSPECIFIED ABDOMINAL PAIN]Onset: 49-16-5000PvsvumifSkkwknvwzv and other anemia (8 sources)Iron deficiency anemia; Translations: [Iron deficiency anemia, unspecified]Onset: 600617-68-1581TvxvzajuYgwhb and electrolyte disorders (20 sources)Dehydration; Translations: [Hypokalemia]Onset: 755942-20-9689 EpisodicMalaise and fatigue (10 sources)Weakness; Translations: [Asthenia]Onset: 96-25-6628YfphwwqoIyzs disorders (19 sources)Mood disorders; Translations: [F32.A - Depression, unspecified] Onset: 05-27-2024 Resolved: Nausea and vomiting (8 sources)Nausea with vomiting, unspecified; Translations: [Nausea]Onset: 93-21-2318GatmqkblGjbop aftercare (2 sources)Other exterminator termite (current) drug therapy; Translations: [OTH SENIOR VALIDATION ENGINEER CURRENT DRUG THERAPY]Onset: 79-66-1998GvdpxsthAuliy aftercare (1 source)senior care (current) use of oral hypoglycemic drugs; Translations: [[facility] USE ORAL HYPOGLYCEMIC DX]Onset: 58-04-1948BgndqawlOzxhk aftercare (20 sources)Long-term current use of drug therapy; Translations: [Other exterminator termite (current) drug therapy]Onset: 778597-99-7970NooigqawKkhda aftercare (1 source)terminal gauger 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; Translations: [senior care (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]Onset: 39-45-8568CcwozapaZuyob circulatory disease (8 sources)History of cerebrovascular disease; Translations: [Personal history of transient ischemic attack (TIA), and cerebral infarction without residual deficits]Onset: 152106-70-7883OysgjyanXmzvr connective tissue disease (20 sources)Fibromyalgia; Translations: [Fibromyalgia]Onset: 03-13-2023 39-80-3679TvcihtasFause fractures (11 sources)Fracture of lumbar spine; Translations: [Other fracture of unspecified lumbar vertebra, subsequent encounter for fracture with routine healing]Onset: 104510-81-8679YvfubwzgAcrcy gastrointestinal disorders (1 source)Diarrhea, unspecified; Translations: [DIARRHEA UNSPECIFIED]Onset: 74-40-0487XednibuxLahmj gastrointestinal disorders (20 sources)Chronic constipation; Translations: [Other constipation]Onset: 919453-33-3088UepntgxfBeltc injuries and conditions due to external causes (6 sources)History of fall; Translations: [History of falling]Onset: 05-14-2024 31-23-0573MaurffzeUfhjk lower respiratory disease (1 source)Personal history of pneumonia (recurrent); Translations: [PERSONAL HX OF PNEUMONIA RECURRENT]Onset: 15-35-1781SknnggnmUidrl non-traumatic joint disorders (20 sources)Pain in elbow; Translations: [Pain in left elbow]Onset: 02-29-2024 00-03-0951KaylwepoZtmyd screening for suspected conditions (not mental disorders or infectious disease) (1 source)Abnormal results of thyroid function studies; Translations: [ABNORMAL RESULTS THR FUNCTION STDY]Onset: 87-30-1773TsdtnfodFadzdjipa (except that caused by tuberculosis or sexually transmitted disease) (6 sources)Pneumonia; Translations: [Pneumonia, unspecified organism]Onset: 791455-73-8178IhfnryhiThanfuhd codes; unclassified (4 sources)Early satiety; Translations: [EARLY SATIETY]Onset: 01-10-1654Tcoxkvtt Urinary tract infections (20 sources)Urinary tract infection, site not specified; Translations: [Acute urinary tract infection]Onset: 08-18-2021 Resolved: 325930-27-1742Djxgpalz Results Test NameValueInterpretationReference RangeFacilityXR HIP RT 2-3 VIEWS W OR WO PELVISon 53-31-4526BQ HIP RT 2-3 VIEWS W OR WO [...] by Adolfo Jessica MD on 12/10/2024 6:16 PMNormalPremier Health [facility] BEDSIDE GLUCOSEon 11-24-2447Muohdex [Mass/Vol]280 mg/eUWtag61-64XmoCzfkkrPremier Health Upper Valley Medical CenterComment on above:Performed By: #### B12 #### [facility] ([facility]) [address] [place] [address] VIRGlucose [Mass/Vol]200 mg/wUVuuq21-28FpnDtuxcjPremier Health Upper Valley Medical CenterComment on above:Performed By: #### B12 #### [facility] ([facility]) [address] [place] [address] VIRBedside Glucose *Place/Obtain serum glucose if >500 per glucometer.on 09-94-1270Nvarjon [Mass/Vol]280 mg/jLElfs91 - 99 mg/dLAdams County HospitalInterpretation and review of laboratory resultsAbnoFox Chase Cancer CenterGlucose [Mass/Vol]200 mg/kYWafh76 - 99 mg/dL [facility] HospitalInterpretation and review of laboratory resultsAbnormal [facility] HospitalCBC WITH AUTO DIFFERENTIALon 47-91-2943NNBTXQAJD ABSOLUTE COUNT (10*3/UL) BY AUTOMATED COUNT0.0 10*3/uLNormal 0.0-0.2[facility] [place] HospitalComment on above:Performed By: #### B12 #### [facility] ([facility]) [address] [place] [address] VIRBASOPHILS RELATIVE PERCENT BY AUTOMATED COUNT0.6 %Normal ProMencompass health rehabilitation hospital of gadsdena [place] HospitalComment on above:Performed By: #### B12 #### [facility] ([facility]) [address] [place] [address] VIRCELLAVISION DIFFERENTIAL TYPEAUTOMATED DIFFERENTIALNormal ProMencompass health rehabilitation hospital of gadsdena [place] HospitalComment on above:Performed By: #### B12 #### [facility] ([facility]) [address] [place] [address] VIREosinophils (Bld) [#/Vol]0.4 10*3/uLNormal0.0-0.4Pro[facility] [place] HospitalComment on above:Performed By: #### B12 #### [facility] ([facility]) [address] [place] [address] VIREOSINOPHILS RELATIVE PERCENT BY AUTOMATED COUNT6.9 %Normal [facility] HospitalComment on above:Performed By: #### B12 #### [facility] ([facility]) [address] [place] [address] VIRErythrocyte distribution width (RBC) [Ratio]12.4 %Normal 11.5-15Pro[facility] [place] HospitalComment on above:Performed By: #### B12 #### [facility] ([facility]) [address] [place] [address] VIRHematocrit (Bld) [Volume fraction]23.1 %Cab39-70NqrFdftyd [place] HospitalComment on above:Performed By: #### B12 #### [facility] ([facility]) [address] [place] [address] VIRHemoglobin (Bld) [Mass/Vol]7.9 g/dLLow11.7-15.5Pro[facility] [place] HospitalComment on above:Performed By: #### B12 #### [facility] ([facility]) [address] [place] [address] VIRLYMPHOCYTES ABSOLUTE COUNT (10*3/UL) BY AUTOMATED COUNT0.7 10*3/uLLow1.0-3.5Pro[facility]ica [place] HospitalComment on above:Performed By: #### B12 #### [facility] ([facility]) [address] [place] [address] VIRLYMPHOCYTES RELATIVE PERCENT BY AUTOMATED COUNT12.6 %Normal [facility] [place] HospitalComment on above:Performed By: #### B12 #### [facility] ([facility]) [address] [place] [address] VIRMCH (RBC) [Entitic mass]32.9 hzTtmqak28-87AbqZpsxrz [place] HospitalComment on above:Performed By: #### B12 #### [facility] ([facility]) [address] [place] [address] VIRMCHC (RBC) [Mass/Vol]34.0 g/yXQxckpu12-93NbmNzeomu [place] HospitalComment on above:Performed By: #### B12 #### [facility] ([facility]) [address] [place] [address] VIRMCV (RBC) [Entitic vol]97 dYJlteha75-634InaAtwcvd [place] HospitalComment on above:Performed By: #### B12 #### [facility] ([facility]) [address] [place] [address] VIRMONOCYTES ABSOLUTE COUNT (10*3/UL) BY AUTOMATED COUNT0.7 10*3/uLNormal0.0-0.9Pro[facility]ica [place] HospitalComment on above:Performed By: #### B12 #### [facility] ([facility]) [address] [place] [address] VIRMONOCYTES RELATIVE PERCENT BY AUTOMATED COUNT12.2 %Normal [facility] [place] HospitalComment on above:Performed By: #### B12 #### [facility] ([facility]) [address] [place] [address] VIRNEUTROPHILS ABSOLUTE COUNT BY AUTOMATED COUNT4.0 10*3/uL Normal1.5-6.6ProCleveland Clinic Akron GeneralComment on above:Performed By: #### B12 #### [facility] ([facility]) [address] [place] [address] VIRNEUTROPHILS RELATIVE PERCENT BY AUTOMATED COUNT67.7 %Normal ProMProMedica Memorial Hospital HospitalComment on above:Performed By: #### B12 #### [facility] ([facility]) [address] [place] [address] VIRPlatelet mean volume (Bld) [Entitic vol]9.[address]12 [address] HospitalComment on above:Performed By: #### B12 #### [facility] ([facility]) [address] [place] [address] VIRPlatelets (Bld) [#/Vol]143 10*3/bEXlj607-150SzcKytnyb [place] HospitalComment on above:Performed By: #### B12 #### [facility] ([facility]) [address] [place] [address] VIRRBC COUNT2.39 X10E12/LLow3.8-5.2PCleveland Clinic Foundation Comment on above:Performed By: #### B12 #### [facility]) [address] [place] [address] VIRWBC (Bld) [#/Vol]5.9 10*3/uLNormal4-11ProHighland District Hospital HospitalComment on above:Performed By: #### B12 #### [facility]) [address] [place] [address] VIRCBC auto differentialon 82-48-1329Gutvyysyn (Bld) [#/Vol]0 10*3/uL0.0 - 0.2 10*3/uLAdams County HospitalBasophils/100 WBC (Bld)0.6 % [facility] HospitalDifferential cell count method Nom (Bld)AUTOMATED DIFFERENTIALAdams County HospitalEosinophils (Bld) [#/Vol]0.4 10*3/uL0.0 - 0.4 10*3/uLAdams County HospitalEosinophils/100 WBC (Bld)6.9 %[facility] County HospitalErythrocyte distribution width (RBC) [Ratio]12.4 %11.5 - 15 %[facility] HospitalHematocrit (Bld) [Volume fraction]23.1 %Low35 - 47 %[facility] HospitalHemoglobin (Bld) [Mass/Vol]7.9 g/dLLow11.7 - 15.5 g/dLAdams County HospitalInterpretation and review of laboratory resultsAbnormalAdams County HospitalLymphocytes (Bld) [#/Vol]0.7 10*3/uLLow1.0 - 3.5 10*3/uLAdams County HospitalLymphocytes/100 WBC (Bld)12.6 %[facility] HospitalMCH (RBC) [Entitic mass]32.9 pg27 - 34 [facility] CenterMCHC (RBC) [Mass/Vol]34 g/dL32 - 36 g/dLAdams County HospitalMCV (RBC) [Entitic vol]97 fL80 - 100 fL [facility] HospitalMonocytes (Bld) [#/Vol]0.7 10*3/uL0.0 - 0.9 10*3/uL [facility] HospitalMonocytes/100 WBC (Bld)12.2 %[facility] Neutrophils (Bld) [#/Vol]4 10*3/uL1.5 - 6.6 10*3/[facility] Neutrophils/100 WBC (Bld)67.7 %[facility] HospitalPlatelet mean volume (Bld) [Entitic vol]9.2 fL7 - 12 [facility] LouisPlatelets (Bld) [#/Vol]143 10*3/uLOhio State East HospitalRBC (Bld) [#/Vol]2.39 10*6/uLLowAdams County HospitalWBC LM Ql (Sput)5.9[facility] COMPREHENSIVE METABOLIC PANELon 07-28-4074Lwtzuqt [Mass/Vol]3.0 g/dLLow3.2-5.3 [facility] HospitalComment on above:Performed By: #### B12 #### [facility]) [address] [place] [address] VIRALP [Catalytic activity/Vol]71 U/EMfwlvs25-558FnzSedume Paul HospitalComment on above:Performed By: #### B12 #### [facility] [address] [place] [address] VIRALT [Catalytic activity/Vol]12 U/LNormal<=31Pro[facility] Paul HospitalComment on above:Performed By: #### B12 #### [facility] [address] [place] [address] VIRAnion gap [Moles/Vol]8 mmol/LNormal5-15[facility] HospitalComment on above:Performed By: #### B12 #### [facility]) [address] [place] [address] VIRAST [Catalytic activity/Vol]14 U/LNormal<=41Pro[facility] Paul HospitalComment on above:Performed By: #### B12 #### [facility]) [address] [place] [address] VIRBilirubin [Mass/Vol]0.5 mg/dLNormal0.3-1.2Pro[facility] Paul HospitalComment on above:Performed By: #### B12 #### [facility]) [address] [place] [address] VIRCalcium [Mass/Vol]9.4 mg/dLNormal8.5-10.5ProMedica Paul HospitalComment on above:Performed By: #### B12 #### [facility]) [address] [place] [address] VIRChloride [Moles/Vol]103 mmol/LDwpplf57-911YroKaupic [place] HospitalComment on above:Performed By: #### B12 #### [facility]) [address] [place] [address] VIRCO2 [Moles/Vol]29 mmol/FKtffvz59-31LmrIcxold [facility] Comment on above:Performed By: #### B12 #### [facility]) [address] [place] [address] VIRCreatinine [Mass/Vol]1.80 mg/dLHigh0.40-1.00ProCleveland Clinic Akron GeneralComment on above:Result Comment: METHOD TRACEABLE TO IDMS STANDARD Performed By: #### B12 #### [facility]) [address] [place] [address] VIRGFR/1.73 sq M.predicted among non-blacks MDRD (S/P/Bld) [Vol rate/Area]29 mL/min/{1.73_m2}Low>=60ProCleveland Clinic Akron GeneralComment on above: Result Comment: Reported eGFR is based on the CKD-EPI 2020 equation that does not use a race coefficient.Performed By: #### B12 #### [facility]) [address] [place] [address] VIRGlucose [Mass/Vol]207 mg/tLVprm69-65CjhQjgbxf [place] HospitalComment on above:Performed By: #### B12 #### [facility]) [address] [place] [address] VIRPotassium [Moles/Vol]4.6 mmol/LNormal3.5-5.0ProCleveland Clinic Akron GeneralComment on above:Performed By: #### B12 #### [facility]) [address] [place] [address] VIRProtein [Mass/Vol]5.4 g/dLLow6.0-8.0ProCleveland Clinic Akron GeneralComment on above:Performed By: #### B12 #### [facility]) [address] [place] [address] VIRSodium [Moles/Vol]140 mmol/OZenlww344-650PpiTcsmvj [place] HospitalComment on above:Performed By: #### B12 #### [facility]) [address] [place] [address] VIRUrea nitrogen [Mass/Vol]44 mg/dLHigh5-27ProCleveland Clinic Akron GeneralComment on above:Performed By: #### B12 #### [facility]) [address] [place] [address] VIRComprehensive metabolic panelon 60-16-4627Ecpddrs [Mass/Vol] 3 g/dLLow3.2 - 5.3 g/dLProRiverview Regional Medical [facility] Health SystemALP [Catalytic activity/Vol]71 U/L 39 - 130 U/LProMedica Health SystemALT No additional P-5'-P [Catalytic activity/Vol]12 U/LNINF - 31 U/LProMedica Health SystemAnion gap [Moles/Vol]8 mmol/L5 - 15 mmol/LProMedica Health SystemAST [Catalytic activity/Vol]14 U/LNINF - 41 U/LProMedica Health SystemBilirubin [Mass/Vol]0.5 mg/dL0.3 - 1.2 mg/dL [facility] Health SystemCalcium [Mass/Vol]9.4 mg/dL8.5 - 10.5 mg/dLProClermont County Hospital SystemChloride [Moles/Vol]103 mmol/L98 - 109 mmol/LProMedica Health SystemCO2 [Moles/Vol]29 mmol/L22 - 32 mmol/LPrFreeman Heart Instituteica Health SystemCreatinine [Mass/Vol]1.8 mg/dLHigh0.40 - 1.00 mg/dLProClermont County Hospital SystemEGFR Non-Race Dikrbhkmr91Epg- PINFPShelby Memorial Hospital SystemGlucose [Mass/Vol]207 mg/eUNliv73 - 99 mg/dLProClermont County Hospital SystemInterpretation and review of laboratory results AbnormalProClermont County Hospital SystemPotassium [Moles/Vol]4.6 mmol/L3.5 - 5.0 mmol/L [facility] SystemProtein [Mass/Vol]5.4 g/dLLow6.0 - 8.0 g/dLProClermont County Hospital SystemSodium [Moles/Vol]140 mmol/L134 - 146 mmol/LProMedica [facility] System Urea nitrogen [Mass/Vol]44 mg/dLHigh5 - 27 mg/dLProClermont County Hospital SystemMAGNESIUM on 18-65-9240Xovrgdzvh [Mass/Vol]2.1 mg/dLNormal1.8-2.6[facility] Comment on above:Performed By: #### B12 #### [facility]) [address] [place] [address] VIRMagnesiumon 78-05-5291Jimdujbpvnrofp and review of laboratory resultsNormalProClermont County Hospital SystemMagnesium [Mass/Vol]2.1 mg/dL1.8 - 2.6 mg/dLTriHealth SystemNo Panel Informationon 16-13-2600ZjdPabpok Health SystemBEDSIDE GLUCOSEon 49-26-7772Qbbqtsm [Mass/Vol]250 mg/xMLwbv21-00 [facility] Medical CenterComment on above:Performed By: #### B12 #### [facility]) [address] [place] [address] VIRGlucose [Mass/Vol]287 mg/aEUirq29-92ByjQmvqjwCleveland Clinic Akron GeneralComment on above:Performed By: #### CPK #### [facility]) [address] [place] [address] VIRGlucose [Mass/Vol]274 mg/oEGkfc59-60XlpRmwtbqCleveland Clinic Akron GeneralComment on above:Performed By: #### CPK #### [facility]) [address] [place] [address] VIRGlucose [Mass/Vol]199 mg/yXUnph86-02RfdUvcdhuPremier Health Upper Valley Medical CenterComment on above:Performed By: #### CPK #### [facility]) [address] [place] [address] VIRBedside Glucose *Place/Obtain serum glucose if >500 per glucometer.on 32-58-1529Xavfvze [Mass/Vol]250 mg/iHFjpk74 - 99 mg/dLTriHealth SystemInterpretation and review of laboratory resultsAbnormalTyler Memorial HospitalGlucose [Mass/Vol]287 mg/tCGqrk19 - 99 mg/dL [facility] SystemInterpretation and review of laboratory resultsAbnormal [facility] HospitalGlucose [Mass/Vol]274 mg/lGLowu06 - 99 mg/dLTriHealth SystemInterpretation and review of laboratory results AbnormalTyler Memorial HospitalGlucose [Mass/Vol]199 mg/rKGrfs00 - 99 mg/dLTriHealth SystemInterpretation and review of laboratory resultsAbnoFox Chase Cancer CenterCBC WITH AUTO DIFFERENTIALon 40-16-4169QBRJILBZD ABSOLUTE COUNT (10*3/UL) BY AUTOMATED COUNT0.0 10*3/uLNormal0.0-0.2PSamaritan North Health Center on above:Result Comment: This is an appended report. These results have been appended to a previously preliminary verified report.Performed By: #### CPK #### [facility]) [address] [place] [address] VIRBASOPHILS RELATIVE PERCENT BY AUTOMATED COUNT0.3 %Normal [facility] CenterComselect [facility] on above:Result Comment: This is an appended report. These results have been appended to a previously preliminary verified report.Performed By: #### CPK #### [facility]) [address] [place] [address] VIRCELLAVISION DIFFERENTIAL TYPEAUTOMATED DIFFERENTIALNoal [facility] CenterComselect [facility] on above:Result Comment: This is an appended report. These results have been appended to a previously preliminary verified report.Performed By: #### CPK #### [facility]) [address] [place] [address] VIREosinophils (Bld) [#/Vol]0.3 10*3/uLNormal0.0-0.4ProHighland District Hospital HospitalComment on above:Result Comment: This is an appended report. These results have been appended to a previously preliminary verified report. Performed By: #### CPK #### [facility]) [address] [place] [address] VIREOSINOPHILS RELATIVE PERCENT BY AUTOMATED COUNT3.8 %Normal ProMProMedica Memorial Hospital HospitalComment on above:Result Comment: This is an appended report. These results have been appended to a previously preliminary verified report.Performed By: #### CPK #### [facility] ([facility]) [address] [place] [address] VIRErythrocyte distribution width (RBC) [Ratio]12.4 %Normal 11.5-15ProHighland District Hospital HospitalComment on above:Performed By: #### CPK #### [facility] ([facility]) [address] [place] [address] VIRHematocrit (Bld) [Volume fraction]24.7 %Dhq17-06NihIgqdfb [place] HospitalComment on above:Performed By: #### CPK #### [facility] ([facility]) [address] [place] [address] VIRHemoglobin (Bld) [Mass/Vol]8.5 g/dLLow11.7-15.5PWadsworth-Rittman Hospital HospitalComment on above:Performed By: #### CPK #### [facility] ([facility]) [address] [place] [address] VIRLYMPHOCYTES ABSOLUTE COUNT (10*3/UL) BY AUTOMATED COUNT0.5 10*3/uLLow1.0-3.5PWadsworth-Rittman Hospital HospitalComment on above:Result Comment: This is an appended report. These results have been appended to a previously prelimi nary verified report.Performed By: #### CPK #### [facility]) [address] [place] [address] VIRLYMPHOCYTES RELATIVE PERCENT BY AUTOMATED COUNT5.6 %Normal ProMACMC Healthcare System GlenbeighComment on above:Result Comment: This is an appended report. These results have been appended to a previously preliminary verified report.Performed By: #### CPK #### [facility]) [address] [place] [address] VIRMCH (RBC) [Entitic mass]33.6 qfIpbkzr70-36ZqiWeacmj [place] HospitalComment on above:Performed By: #### CPK #### [facility]) [address] [place] [address] VIRMCHC (RBC) [Mass/Vol]34.4 g/bVVtlpdi90-59QtlCmwlco [place] HospitalComment on above:Performed By: #### CPK #### [facility]) [address] [place] [address] VIRMCV (RBC) [Entitic vol]98 fRUyjjde43-989EnpNjbowy [place] HospitalComment on above:Performed By: #### CPK #### [facility]) [address] [place] [address] VIRMONOCYTES ABSOLUTE COUNT (10*3/UL) BY AUTOMATED COUNT0.8 10*3/uLNormal0.0-0.9[facility] CenterComselect specialty hospital[facility] on above:Result Comment: This is an appended report. These results have been appended to a previously preliminary verified report.Performed By: #### CPK #### [facility]) [address] [place] [address] VIRMONOCYTES RELATIVE PERCENT BY AUTOMATED COUNT9.9 %Normal ProMACMC Healthcare System GlenbeighComment on above:Result Comment: This is an appended report. These results have been appended to a previously preliminary verified report.Performed By: #### CPK #### [facility]) [address] [place] [address] VIRNEUTROPHILS ABSOLUTE COUNT BY AUTOMATED COUNT6.5 10*3/uL Normal1.5-6.6[facility] Medical CenterComment on above:Result Comment: This is an appended report. These results have been appended to a previously preliminary verified report.Performed By: #### CPK #### [facility]) [address] [place] [address] VIRNEUTROPHILS RELATIVE PERCENT BY AUTOMATED COUNT80.4 %Normal [facility] Medical CenterComment on above:Result Comment: This is an appended report. These results have been appended to a previously preliminary verified report.Performed By: #### CPK #### [facility]) [address] [place] [address] VIRPlatelet mean volume (Bld) [Entitic vol]9.8 fLNormal7-12 [facility] Medical CenterComment on above:Performed By: #### CPK #### [facility]) [address] [place] [address] VIRPlatelets (Bld) [#/Vol]136 10*3/gUFez808-681RgiWswveeCleveland Clinic Akron GeneralComment on above:Performed By: #### CPK #### [facility] ([facility]) [address] [place] [address] VIRRBC COUNT2.53 X10E12/LLow3.8-5.2PCleveland Clinic Foundation Comment on above:Performed By: #### CPK #### [facility]) [address] [place] [address] VIRWBC (Bld) [#/Vol]8.1 10*3/uLNormal4-11[facility] Medical CenterComment on above:Performed By: #### CPK #### [facility]) [address] [place] [address] [facility] auto differentialon 48-14-7619Lolqelwbn (Bld) [#/Vol]0 10*3/uL0.0 - 0.2 10*3/uLAdams County HospitalBasophils/100 WBC (Bld)0.3 % [facility] HospitalDifferential cell count method Nom (Bld)AUTOMATED DIFFERENTIALAdams County HospitalEosinophils (Bld) [#/Vol]0.3 10*3/uL0.0 - 0.4 10*3/uLAdams County HospitalEosinophils/100 WBC (Bld)3.8 %[facility] HospitalErythrocyte distribution width (RBC) [Ratio]12.4 %11.5 - 15 %[facility] HospitalHematocrit (Bld) [Volume fraction]24.7 %Low35 - 47 %[facility] HospitalHemoglobin (Bld) [Mass/Vol]8.5 g/dLLow11.7 - 15.5 g/dLAdams County HospitalInterpretation and review of laboratory resultsAbnormalAdams County HospitalLymphocytes (Bld) [#/Vol]0.5 10*3/uLLow1.0 - 3.5 10*3/uLAdams County HospitalLymphocytes/100 WBC (Bld)5.6 %[facility] CantonH (RBC) [Entitic mass]33.6 pg27 - 34 [facility] CenterMCHC (RBC) [Mass/Vol]34.4 g/dL32 - 36 g/dLAdams County HospitalMCV (RBC) [Entitic vol]98 fL80 - 100 fL [facility] HospitalMonocytes (Bld) [#/Vol]0.8 10*3/uL0.0 - 0.9 10*3/uL [facility] HospitalMonocytes/100 WBC (Bld)9.9 %[facility] Neutrophils (Bld) [#/Vol]6.5 10*3/uL1.5 - 6.6 10*3/uLAdams County Hospital Neutrophils/100 WBC (Bld)80.4 %[facility] HospitalPlatelet mean volume (Bld) [Entitic vol]9.8 fL7 - 12 fLPKettering Health PreblePlatelets (Bld) [#/Vol]136 10*3/uLNorthfield City Hospital SystemRBC (Bld) [#/Vol]2.53 10*6/[facility] MichiganWBC LM Ql (Sput)8.1PGeisinger Community Medical Center COMPREHENSIVE METABOLIC PANELon 30-27-7269Ineaqob [Mass/Vol]3.1 g/dLLow3.2-5.3 [facility] Paul HospitalComment on above:Performed By: #### CPK #### [facility]) [address] [place] [address] VIRALP [Catalytic activity/Vol]88 U/YHguoxe03-186KzwRmzlpg [place] HospitalComment on above:Performed By: #### CPK #### [facility]) [address] [place] [address] VIRALT [Catalytic activity/Vol]15 U/LNormal<=31ProMedLima City Hospital HospitalComment on above:Performed By: #### CPK #### [facility]) [address] [place] [address] VIRAnion gap [Moles/Vol]7 mmol/LNormal5-15ProHighland District Hospital HospitalComment on above:Performed By: #### CPK #### [facility]) [address] [place] [address] VIRAST [Catalytic activity/Vol]22 U/LNormal<=41Pro[facility] [place] HospitalComment on above:Performed By: #### CPK #### [facility]) [address] [place] [address] VIRBilirubin [Mass/Vol]0.6 mg/dLNormal0.3-1.2PWadsworth-Rittman Hospital HospitalComment on above:Performed By: #### CPK #### [facility]) [address] [place] [address] VIRCalcium [Mass/Vol]9.5 mg/dLNormal8.5-10.5PCleveland Clinic FoundationComment on above:Performed By: #### CPK #### [facility]) [address] [place] [address] VIRChloride [Moles/Vol]101 mmol/SUqurfa70-639SbhMrmmof [place] HospitalComment on above:Performed By: #### CPK #### [facility]) [address] [place] [address] VIRCO2 [Moles/Vol]28 mmol/UCqvqku48-52MlwGmzsyy [facility] Comment on above:Performed By: #### CPK #### [facility]) [address] [place] [address] VIRCreatinine [Mass/Vol]1.86 mg/dLHigh0.40-1.00ProHighland District Hospital HospitalComment on above:Result Comment: METHOD TRACEABLE TO IDMS STANDARD Performed By: #### CPK #### [facility] ([facility]) [address] [place] [address] VIRGFR/1.73 sq M.predicted among non-blacks MDRD (S/P/Bld) [Vol rate/Area]28 mL/min/{1.73_m2}Low>=60ProCleveland Clinic Akron GeneralComment on above: Result Comment: Reported eGFR is based on the CKD-EPI 2020 equation that does not use a race coefficient.Performed By: #### CPK #### [facility]) [address] [place] [address] VIRGlucose [Mass/Vol]222 mg/pDMlks65-04RdlZwhkow [place] HospitalComment on above:Performed By: #### CPK #### [facility]) [address] [place] [address] VIRPotassium [Moles/Vol]5.0 mmol/LNormal3.5-5.0ProMedica Paul HospitalComment on above:Performed By: #### CPK #### [facility] ([facility]) [address] [place] [address] VIRProtein [Mass/Vol]5.4 g/dLLow6.0-8.0ProCleveland Clinic Akron GeneralComment on above:Performed By: #### CPK #### [facility]) [address] [place] [address] VIRPerformed By: #### B12 #### [facility]) [address] [place] [address] VIRSodium [Moles/Vol]136 mmol/UIymxki019-201EtpOlksem [place] HospitalComment on above:Performed By: #### CPK #### [facility]) [address] [place] [address] VIRUrea nitrogen [Mass/Vol]46 mg/dLHigh5-27ProHighland District Hospital HospitalComment on above:Performed By: #### CPK #### [facility] ([facility]) [address] [place] [address] VIRComprehensive metabolic panelon 02-60-7032Wvdryod [Mass/Vol] 3.1 g/dLLow3.2 - 5.3 g/dLProMedica Health [...] mmol/LProMedica Health SystemCO2 [Moles/Vol]28 mmol/L22 - 32 mmol/[facility] SystemCreatinine [Mass/Vol]1.86 mg/dLHigh0.40 - 1.00 mg/dLTriHealth SystemEGFR Non-Race Wculgoyyt23Rdz- PINMiami Valley Hospital SystemGlucose [Mass/Vol]222 mg/bBPeql69 - 99 mg/dLTriHealth SystemInterpretation and review of laboratory results AbnormalAdams County HospitalPotassium [Moles/Vol]5 mmol/L3.5 - 5.0 mmol/L ProMMahnomen Health Center SystemProtein [Mass/Vol]5.4 g/dLLow6.0 - 8.0 g/dLTriHealth SystemSodium [Moles/Vol]136 mmol/L134 - 146 mmol/[facility] Urea nitrogen [Mass/Vol]46 mg/dLHigh5 - 27 mg/dLAdams County Hospital IMMUNOELECTROPHORESIS FOR THERAPY MONITORINGon 66-57-5148YDVB SHERRELL/LAMBD RATIO 1.62Cfbkug1.26-1.65ProCleveland Clinic Akron GeneralComment on above:Performed By: #### B12 #### [facility]) [address] [place] [address] VIRFREE KAPPA LT CHAINS4.92 mg/dLHigh0.33-1.94ProCleveland Clinic Akron GeneralComment on above:Performed By: #### B12 #### [facility]) [address] [place] [address] VIRFREE LAMBDA LT CHAINS3.72 mg/dLHigh0.57-2.63ProCleveland Clinic Akron GeneralComment on above:Performed By: #### B12 #### [facility] ([facility]) [address] [place] [address] VIRIgA [Mass/Vol]169 mg/aUEzucpi12-585LsnUjcbfi [facility] Comment on above:Performed By: #### B12 #### [facility]) [address] [place] [address] VIRIgG [Mass/Vol]685 mg/eGQjupnd327-4275YlaByttsr [place] HospitalComment on above:Performed By: #### B12 #### [facility] ([facility]) [address] [place] [address] VIRIgM [Mass/Vol]44 mg/rKDbb01-233CbrJxoayoCleveland Clinic Akron General Comment on above:Performed By: #### B12 #### [facility]) [address] [place] [address] VIRIMMUNUE PROFILE INTERPSee Pathology ReportNormalPremier Health Upper Valley Medical CenterComment on above:Performed By: #### B12 #### [facility] ([facility]) [address] [place] [address] VIRMAGNESIUMon 78-81-2597Vlmlatfmz [Mass/Vol]2.1 mg/dLNormal 1.8-2.6ProCleveland Clinic Akron GeneralComment on above:Performed By: #### CPK #### [facility] ([facility]) [address] [place] [address] VIRMagnesiumon 15-03-7030Orhfdwwevrstvu and review of laboratory resultsNormalProSalem City HospitalMagnesium [Mass/Vol]2.1 mg/dL1.8 - 2.6 mg/dLAdams County HospitalNo Panel Informationon 54-54-1709TnhWxunzfSalem City HospitalPROTEIN ELECTROPHORESIS, SERUMon 97-68-2820Bmszvlh [Mass/Vol]2.8 g/dLLow3.4-5.3PCleveland Clinic FoundationComment on above:Performed By: #### B12 #### [facility]) [address] [place] [address] VIRALPHA 1 GLOBULIN0.5 g/dLHigh0.1-0.4[facility] Comment on above:Performed By: #### B12 #### [facility] ([facility]) [address] [place] [address] VIRALPHA 2 GLOBULIN0.8 g/dLNormal0.4-1.1PCleveland Clinic FoundationComment on above:Performed By: #### B12 #### [facility] ([facility]) [address] [place] [address] VIRBETA GLOBULIN0.7 g/dLNormal0.5-1.2PC[facility] Comment on above:Performed By: #### B12 #### [facility] ([facility]) [address] [place] [address] VIRGAMMA GLOBULIN0.6 g/dLNormal0.5-1.6Pro[facility] Comment on above:Performed By: #### B12 #### [facility] ([facility]) [address] [place] [address] VIRPROTEIN ELECTROPHORESIS INTERPSee Pathology ReportNormal [facility] CenterComment on above:Performed By: #### B12 #### [facility] ([facility]) [address] [place] [address] VIRBEDSIDE GLUCOSEon [id number] [Mass/Vol]236 mg/dLHigh 65-99ProHigh[facility] Hospital HospitalComment on above:Performed By: #### CPK #### [facility] ([facility]) [address] [place] [address] VIRGlucose [Mass/Vol]234 mg/qAMwnt85-42ChzQlomle [place] HospitalComment on above:Performed By: #### BMP #### [facility] ([facility]) [address] [place] [address] VIRGlucose [Mass/Vol]239 mg/gEXijg92-82JtvFreokq [place] HospitalComment on above:Performed By: #### BMP #### [facility] ([facility]) [address] [place] [address] VIRGlucose [Mass/Vol]201 mg/eYAzmy84-88EknHamvgv [place] HospitalComment on above:Performed By: #### BMP #### [facility] ([facility]) [address] [place] [address] VIRBedside Glucose *Place/Obtain serum glucose if >500 per glucometer.on 95-93-2652Cprumhz [Mass/Vol]236 mg/zGVkem32 - 99 mg/dLAdams County HospitalInterpretation and review of laboratory resultsAbnoalTyler Memorial HospitalGlucose [Mass/Vol]234 mg/oUJkij05 - 99 mg/dL [facility] County HospitalInterpretation and review of laboratory resultsAbnormal Tyler Memorial HospitalGlucose [Mass/Vol]239 mg/pVUlgl18 - 99 mg/dLTriHealth SystemInterpretation and review of laboratory results AbnormalTyler Memorial HospitalGlucose [Mass/Vol]201 mg/qPYrnc95 - 99 mg/dLAdams County HospitalInterpretation and review of laboratory resultsAbnoFox Chase Cancer CenterCBC WITH AUTO DIFFERENTIALon 58-64-6656MUCKTLPGR ABSOLUTE COUNT (10*3/UL) BY AUTOMATED COUNT0.0 10*3/uLNormal0.0-0.2PCleveland Clinic FoundationComment on above:Performed By: #### BMP #### [facility] ([facility]) [address] [place] [address] VIRBASOPHILS RELATIVE PERCENT BY AUTOMATED COUNT0.5 %Normal [facility] Valley Medical CenterComment on above:Performed By: #### BMP #### [facility] ([facility]) [address] [place] [address] VIRCELLAVISION DIFFERENTIAL TYPEAUTOMATED DIFFERENTIALNormal [facility] Medical CenterComment on above:Performed By: #### BMP #### [facility] ([facility]) [address] [place] [address] VIREosinophils (Bld) [#/Vol]0.4 10*3/uLNormal0.0-0.4[facility] Medical CenterComment on above:Performed By: #### BMP #### [facility] ([facility]) [address] [place] [address] VIREOSINOPHILS RELATIVE PERCENT BY AUTOMATED COUNT5.8 %Normal [facility] [place] HospitalComment on above:Performed By: #### BMP #### [facility] ([facility]) [address] [place] [address] VIRErythrocyte distribution width (RBC) [Ratio]12.3 %Normal 11.5-15ProMedica Paul HospitalComment on above:Performed By: #### BMP #### [facility] ([facility]) [address] [place] [address] VIRHematocrit (Bld) [Volume fraction]24.2 %Qlz04-47UnzBoqdiu Paul HospitalComment on above:Performed By: #### BMP #### [facility] ([facility]) [address] [place] [address] VIRHemoglobin (Bld) [Mass/Vol]8.2 g/dLLow11.7-15.5[facility] [place] HospitalComment on above:Performed By: #### BMP #### [facility] ([facility]) [address] [place] [address] VIRLYMPHOCYTES ABSOLUTE COUNT (10*3/UL) BY AUTOMATED COUNT0.9 10*3/uLLow1.0-3.5ProMedLima City Hospital HospitalComment on above:Performed By: #### BMP #### [facility] ([facility]) [address] [place] [address] VIRLYMPHOCYTES RELATIVE PERCENT BY AUTOMATED COUNT12.5 %Normal [facility] [place] HospitalComment on above:Performed By: #### BMP #### [facility] ([facility]) [address] [place] [address] VIRMCH (RBC) [Entitic mass]32.9 jtAgbqwj81-81PinEqshyw Paul HospitalComment on above:Performed By: #### BMP #### [facility] ([facility]) [address] [place] [address] VIRMCHC (RBC) [Mass/Vol]34.0 g/dYLthooq75-42HmwVddcif [place] HospitalComment on above:Performed By: #### BMP #### [facility] ([facility]) [address] [place] [address] VIRMCV (RBC) [Entitic vol]97 eNShnibb06-894PqiQnjitg [place] HospitalComment on above:Performed By: #### BMP #### [facility] ([facility]) [address] [place] [address] VIRMONOCYTES ABSOLUTE COUNT (10*3/UL) BY AUTOMATED COUNT0.8 10*3/uLNormal0.0-0.9ProHighland District Hospital HospitalComment on above:Performed By: #### BMP #### [facility] ([facility]) [address] [place] [address] VIRMONOCYTES RELATIVE PERCENT BY AUTOMATED COUNT10.7 %Normal ProMProMedica Memorial Hospital HospitalComment on above:Performed By: #### BMP #### [facility] ([facility]) [address] [place] [address] VIRNEUTROPHILS ABSOLUTE COUNT BY AUTOMATED COUNT5.0 10*3/uL Normal1.5-6.6ProHighland District Hospital HospitalComment on above:Performed By: #### BMP #### [facility] ([facility]) [address] [place] [address] VIRNEUTROPHILS RELATIVE PERCENT BY AUTOMATED COUNT70.5 %Normal ProMProMedica Memorial Hospital HospitalComment on above:Performed By: #### BMP #### [facility] ([facility]) [address] [place] [address] VIRPlatelet mean volume (Bld) [Entitic vol]9.5 fLNormal7-12 ProMencompass health rehabilitation hospital of gadsdena [place] HospitalComment on above:Performed By: #### BMP #### [facility] ([facility]) [address] [place] [address] VIRPlatelets (Bld) [#/Vol]120 10*3/uWZeh178-508NoqKjsavcCleveland Clinic Akron GeneralComment on above:Performed By: #### BMP #### [facility] ([facility]) [address] [place] [address] VIRRBC COUNT2.50 X10E12/LLow3.8-5.2PCleveland Clinic Foundation Comment on above:Performed By: #### BMP #### [facility] ([facility]) [address] [place] [address] VIRWBC (Bld) [#/Vol]7.0 10*3/uLNormal4-11[facility] Medical CenterComment on above:Performed By: #### BMP #### [facility] ([facility]) [address] [place] [address] VIRCBC auto differentialon 22-79-1308Hkxhhztvx (Bld) [#/Vol]0 10*3/uL0.0 - 0.2 10*3/uLAdams County HospitalBasophils/100 WBC (Bld)0.5 % [facility] County HospitalDifferential cell count method Nom (Bld)AUTOMATED DIFFERENTIALAdams County HospitalEosinophils (Bld) [#/Vol]0.4 10*3/uL0.0 - 0.4 10*3/uLAdams County HospitalEosinophils/100 WBC (Bld)5.8 %Ad[facility] County HospitalErythrocyte distribution width (RBC) [Ratio]12.3 %11.5 - 15 %Ad[facility] County HospitalHematocrit (Bld) [Volume fraction]24.2 %Low35 - 47 %Ad[facility] County HospitalHemoglobin (Bld) [Mass/Vol]8.2 g/dLLow11.7 - 15.5 g/dLAdams County HospitalInterpretation and review of laboratory resultsAbnormalAdams County HospitalLymphocytes (Bld) [#/Vol]0.9 10*3/uLLow1.0 - 3.5 10*3/uLTriHealth SystemLymphocytes/100 WBC (Bld)12.5 %[facility] Hospital - CantonH (RBC) [Entitic mass]32.9 pg27 - 34 pgPKettering Health PrebleMCHC (RBC) [Mass/Vol]34 g/dL32 - 36 g/dLAdams County HospitalMCV (RBC) [Entitic vol]97 fL80 - 100 fL [facility] HospitalMonocytes (Bld) [#/Vol]0.8 10*3/uL0.0 - 0.9 10*3/uL [facility] HospitalMonocytes/100 WBC (Bld)10.7 %[facility] Neutrophils (Bld) [#/Vol]5 10*3/uL1.5 - 6.6 10*3/uLAdams County Hospital Neutrophils/100 WBC (Bld)70.5 %Ad[facility] County HospitalPlatelet mean volume (Bld) [Entitic vol]9.5 fL7 - 12 [facility] St. LouisPlatelets (Bld) [#/Vol]120 10*3/uLLowAdams County HospitalRBC (Bld) [#/Vol]2.5 10*6/[facility] of Southeastern MichiganWBC LM Ql (Sput)7[facility] COMPREHENSIVE METABOLIC PANELon 91-69-5669Akozzbk [Mass/Vol]3.1 g/dLLow3.2-5.3 [facility] Medical CenterComment on above:Performed By: #### BMP #### [facility] ([facility]) [address] [place] [address] VIRALP [Catalytic activity/Vol]87 U/KAbgbur24-295SweYjodwmPremier Health Upper Valley Medical CenterComment on above:Performed By: #### BMP #### [facility] ([facility]) [address] [place] [address] VIRALT [Catalytic activity/Vol]39 U/LHigh<=31PCleveland Clinic FoundationComment on above:Performed By: #### BMP #### [facility] ([facility]) [address] [place] [address] VIRAnion gap [Moles/Vol]7 mmol/LNormal5-15[facility] [place] HospitalComment on above:Performed By: #### BMP #### [facility] ([facility]) [address] [place] [address] VIRAST [Catalytic activity/Vol]56 U/LHigh<=41[facility] [place] HospitalComment on above:Performed By: #### BMP #### [facility] ([facility]) [address] [place] [address] VIRBilirubin [Mass/Vol]0.4 mg/dLNormal0.3-1.2ProMedLima City Hospital HospitalComment on above:Performed By: #### BMP #### [facility] ([facility]) [address] [place] [address] VIRCalcium [Mass/Vol]9.5 mg/dLNormal8.5-10.5ProMedLima City Hospital HospitalComment on above:Performed By: #### BMP #### [facility] ([facility]) [address] [place] [address] VIRChloride [Moles/Vol]103 mmol/KBsrkyk11-667CyjDtpdbp [place] HospitalComment on above:Performed By: #### BMP #### [facility] ([facility]) [address] [place] [address] VIRCO2 [Moles/Vol]28 mmol/SAgixhn70-77YlsIisndp [facility] Comment on above:Performed By: #### BMP #### [facility] ([facility]) [address] [place] [address] VIRCreatinine [Mass/Vol]2.28 mg/dLHigh0.40-1.00ProCleveland Clinic Akron GeneralComment on above:Result Comment: METHOD TRACEABLE TO IDMS STANDARD Performed By: #### BMP #### [facility] ([facility]) [address] [place] [address] VIRGFR/1.73 sq M.predicted among non-blacks MDRD (S/P/Bld) [Vol rate/Area]22 mL/min/{1.73_m2}Low>=60ProHighland District Hospital HospitalComment on above: Result Comment: Reported eGFR is based on the CKD-EPI 2020 equation that does not use a race coefficient.Performed By: #### BMP #### [facility] ([facility]) [address] [place] [address] VIRGlucose [Mass/Vol]151 mg/vHXswu97-18PxvRcxlee [place] HospitalComment on above:Performed By: #### BMP #### [facility] ([facility]) [address] [place] [address] VIRPotassium [Moles/Vol]5.2 mmol/LHigh3.5-5.0ProHighland District Hospital HospitalComment on above:Performed By: #### BMP #### [facility] ([facility]) [address] [place] [address] VIRProtein [Mass/Vol]5.5 g/dLLow6.0-8.0ProHighland District Hospital HospitalComment on above:Performed By: #### BMP #### [facility] ([facility]) [address] [place] [address] VIRSodium [Moles/Vol]138 mmol/WRybhfo031-551BooCbdmgk [place] HospitalComment on above:Performed By: #### BMP #### [facility] ([facility]) [address] [place] [address] VIRUrea nitrogen [Mass/Vol]53 mg/dLHigh5-27ProHighland District Hospital HospitalComment on above:Performed By: #### BMP #### [facility] ([facility]) [address] [place] [address] VIRComprehensive metabolic panelon 41-43-7522Varirmn [Mass/Vol] 3.1 g/dLLow3.2 - 5.3 g/dLProMemorial Health Systemca [facility] SystemALP [Catalytic activity/Vol]87 U/L39 - 130 U/LProMedica Health SystemALT No additional P-5'-P [Catalytic activity/Vol]39 U/LHighNINF - 31 U/LProMedica Health SystemAnion gap [Moles/Vol] 7 mmol/L5 - 15 mmol/LProMedica Health SystemAST [Catalytic activity/Vol]56 U/L HighNINF - 41 U/LProMeddecatur morgan hospital Health SystemBilirubin [Mass/Vol]0.4 mg/dL0.3 - 1.2 mg/dLProRiverview Regional Medical Center Health SystemCalcium [Mass/Vol]9.5 mg/dL8.5 - 10.5 mg/dLProClermont County Hospital SystemChloride [Moles/Vol]103 mmol/L98 - 109 mmol/LProMedica Health SystemCO2 [Moles/Vol]28 mmol/L22 - 32 mmol/LPrUCHealth Broomfield Hospital Health SystemCreatinine [Mass/Vol]2.28 mg/dLHigh0.40 - 1.00 mg/dLTriHealth SystemEGFR Non-Race Kpuhyommz50Gcf- PINFPShelby Memorial Hospital SystemGlucose [Mass/Vol]151 mg/oZAfmm63 - 99 mg/dLTriHealth SystemInterpretation and review of laboratory results AbnormalProRiverview Regional Medical Center Health SystemPotassium [Moles/Vol]5.2 mmol/LHigh3.5 - 5.0 mmol/LProMedica Health SystemProtein [Mass/Vol]5.5 g/dLLow6.0 - 8.0 g/dL ProMMahnomen Health Center SystemSodium [Moles/Vol]138 mmol/L134 - 146 mmol/LPrFreeman Heart Instituteica Health SystemUrea nitrogen [Mass/Vol]53 mg/dLHigh5 - 27 mg/dLTriHealth SystemFERRITINon 86-52-3804Mkrehiza [Mass/Vol]76 ng/vPRbiqjq10-633YwdXjprco [place] HospitalComment on above:Performed By: #### CPK #### [facility]) [address] [place] [address] VIRFOLATEon 23-08-5700XXEMM ACID17.9 ng/mLNormal>5.8ProCleveland Clinic Akron GeneralComment on above:Performed By: #### CPK #### [facility] ([facility]) [address] [place] [address] VIRFerritinon 51-64-4797Nygcsqaw [Mass/Vol]76 ng/mL11 - 307 ng/mLTriHealth SystemInterpretation and review of laboratory results NormalProAurora Medical Center Oshkosh SystemFolateon 50-30-4447Uwuuqx [Mass/Vol]17.9 ng/mL5.8 - PINF ng/mLTriHealth SystemInterpretation and review of laboratory resultsNormalProMediBeth David HospitalProClermont County Hospital System IRON AND TIBCon 85-37-4869Tfpk [Mass/Vol]12 ug/tZMcd20-357JnaFtrwbhCleveland Clinic Akron GeneralComment on above:Performed By: #### BMP #### [facility] ([facility]) [address] [place] [address] VIRIRON GWIALID596 ug/qNWtvvwt599-674PomOkrfeiPremier Health Upper Valley Medical Center Comment on above:Performed By: #### BMP #### [facility] ([facility]) [address] [place] [address] VIRIRON SATURATION4 % EOCMCDIGPIKcx83-23OkhLbuwwl [place] HospitalComment on above:Performed By: #### BMP #### [facility] ([facility]) [address] [place] [address] VIRTransferrin [Mass/Vol]195 mg/rINzhjgp331-280UcgXlfywh [place] HospitalComment on above:Performed By: #### BMP #### [facility] ([facility]) [address] [place] [address] VIRIron and TIBCon 68-68-9166Dbrxkqbkehbeea and review of laboratory resultsAbnormalTriHealth SystemIron [Mass/Vol]12 ug/dLLow50 - 170 ug/dLProSalem City HospitalIron binding capacity [Mass/Vol]273 ug/dL250 - 425 ug/dLProSalem City HospitalIron saturation [Mass fraction]4LowProClermont County Hospital SystemTransferrin [Mass or moles/Vol]195 mg/dL168 - 336 mg/dLProMediMUSC Health Black [facility] Center SystemMAGNESIUMon 31-09-1138Povdsxxzn [Mass/Vol] 2.2 mg/dLNormal1.8-2.6ProHighland District Hospital HospitalComment on above:Performed By: #### BMP #### [facility] ([facility]) [address] [place] [address] VIRMagnesiumon 39-87-0688Hcfvwwgkrthqll and review of laboratory resultsNormalTriHealth SystemMagnesium [Mass/Vol]2.2 mg/dL1.8 - 2.6 mg/dLTriHealth SystemNo Panel Informationon 86-00-0527PovEwcvsn Health SystemVITAMIN B12on 46-88-3536Mkoranrvd (Vitamin B12) [Mass/Vol]314 pg/mL Xpltuc536-188WywMzhvab [facility]cyrus HospitalComment on above:Performed By: #### CPK #### [facility] ([facility]) [address] [place] [address] VIRVitamin B12on 66-40-1137Haikirikz (Vitamin B12) [Mass/Vol] 314 pg/mL180 - 914 pg/mLAdams County HospitalInterpretation and review of laboratory resultsNormalProClermont County Hospital SystemProClermont County Hospital SystemBEDSIDE GLUCOSEon 24-43-8420Slccgwm [Mass/Vol]223 mg/vJGjtk13-55HhxAshrgq [place] HospitalComment on above:Performed By: #### BMP #### [facility] ([facility]) [address] [place] [address] VIRGlucose [Mass/Vol]271 mg/lVZtcq84-25YpoZfejuo [place] HospitalComment on above:Performed By: #### BMP #### [facility] ([facility]) [address] [place] [address] VIRGlucose [Mass/Vol]234 mg/fPTbpu41-36AdiBcbyvk [place] HospitalComment on above:Performed By: #### PAB #### [facility] ([facility]) [address] [place] [address] VIRGlucose [Mass/Vol]204 mg/vVIpga99-41JobWvxixfPremier Health Upper Valley Medical CenterComment on above:Performed By: #### TSC #### [facility] ([facility]) [address] [place] [address] VIRBedside Glucose *Place/Obtain serum glucose if >500 per glucometer.on 32-36-8029Bunzaya [Mass/Vol]223 mg/iHPihe51 - 99 mg/dLTriHealth SystemInterpretation and review of laboratory resultsAbnormalTyler Memorial HospitalGlucose [Mass/Vol]271 mg/wGIcsi68 - 99 mg/dL [facility] HospitalInterpretation and review of laboratory resultsAbnormal [facility] Memorial HospitalGlucose [Mass/Vol]234 mg/kBFhsr06 - 99 mg/dLAdams County HospitalInterpretation and review of laboratory results AbnormalTyler Memorial HospitalGlucose [Mass/Vol]204 mg/eYQqab29 - 99 mg/dLAdams County HospitalInterpretation and review of laboratory resultsAbnoFox Chase Cancer CenterCBC WITH AUTO DIFFERENTIALon 45-67-2692OAVFSHHMO ABSOLUTE COUNT (10*3/UL) BY AUTOMATED COUNT0.0 10*3/uLNormal0.0-0.2PCleveland Clinic FoundationComment on above:Performed By: #### TSC #### [facility] ([facility]) [address] [place] [address] VIRBASOPHILS RELATIVE PERCENT BY AUTOMATED COUNT0.2 %Normal [facility] Medical CenterComment on above:Performed By: #### TSC #### [facility] ([facility]) [address] [place] [address] VIRCELLAVISION DIFFERENTIAL TYPEAUTOMATED DIFFERENTIALNormal [facility] Medical CenterComment on above:Performed By: #### TSC #### [facility] ([facility]) [address] [place] [address] VIREosinophils (Bld) [#/Vol]0.0 10*3/uLNormal0.0-0.4ProMemorial Health Systemca Paul HospitalComment on above:Performed By: #### TSC #### [facility] ([facility]) [address] [place] [address] VIREOSINOPHILS RELATIVE PERCENT BY AUTOMATED COUNT0.3 %Normal ProMencompass health rehabilitation hospital of gadsdena [place] HospitalComment on above:Performed By: #### TSC #### [facility] ([facility]) [address] [place] [address] VIRErythrocyte distribution width (RBC) [Ratio]12.6 %Normal 11.5-15ProMemorial Health Systemca [place] HospitalComment on above:Performed By: #### TSC #### [facility] ([facility]) [address] [place] [address] VIRHematocrit (Bld) [Volume fraction]28.2 %Wei20-04KupLqrkpi [place] HospitalComment on above:Performed By: #### TSC #### [facility] ([facility]) [address] [place] [address] VIRHemoglobin (Bld) [Mass/Vol]9.3 g/dLLow11.7-15.5PWadsworth-Rittman Hospital HospitalComment on above:Performed By: #### TSC #### [facility] ([facility]) [address] [place] [address] VIRLYMPHOCYTES ABSOLUTE COUNT (10*3/UL) BY AUTOMATED COUNT0.4 10*3/uLLow1.0-3.5PWadsworth-Rittman Hospital HospitalComment on above:Performed By: #### TSC #### [facility] ([facility]) [address] [place] [address] VIRLYMPHOCYTES RELATIVE PERCENT BY AUTOMATED COUNT4.5 %Normal ProMProMedica Memorial Hospital HospitalComment on above:Performed By: #### TSC #### [facility] ([facility]) [address] [place] [address] VIRMCH (RBC) [Entitic mass]32.1 pcMmptpe22-15ZqfEqiiut Paul HospitalComment on above:Performed By: #### TSC #### [facility] ([facility]) [address] [facility] [place] [address] VIRMCHC (RBC) [Mass/Vol]33.1 g/kWGwkepk94-91LfyOcawiv Paul HospitalComment on above:Performed By: #### TSC #### [facility] ([facility]) [address] [place] [facility] [address] VIRMCV (RBC) [Entitic vol]97 bOTskgnz72-228NmuZcghbw Paul HospitalComment on above:Performed By: #### TSC #### [facility] ([facility]) [address] [place] [facility] [place] [address] VIRMONOCYTES ABSOLUTE COUNT (10*3/UL) BY AUTOMATED COUNT0.8 10*3/uLNormal0.0-0.9ProMemorial Health Systemca [place] HospitalComment on above:Performed By: #### TSC #### [facility] ([facility]) [address] [place] [facility] [place] [address] VIRMONOCYTES RELATIVE PERCENT BY AUTOMATED COUNT8.3 %Normal ProMProMedica Memorial Hospital HospitalComment on above:Performed By: #### TSC #### [facility] ([facility]) [address] [place] [facility] [place] [address] VIRNEUTROPHILS ABSOLUTE COUNT BY AUTOMATED COUNT7.9 10*3/uLHigh 1.5-6.6ProMemorial Health Systemca [place] HospitalComment on above:Performed By: #### TSC #### [facility] ([facility]) [address] [place] [facility] [address] VIRNEUTROPHILS RELATIVE PERCENT BY AUTOMATED COUNT86.7 %Normal ProMencompass health rehabilitation hospital of gadsdena Paul HospitalComment on above:Performed By: #### TSC #### [facility] ([facility]) [address] [facility] [place] [address] VIRPlatelet mean volume (Bld) [Entitic vol]9.0 fLNormal7-12 ProMedica Paul HospitalComment on above:Performed By: #### TSC #### [facility] ([facility]) [address] [place] [address] VIRPlatelets (Bld) [#/Vol]138 10*3/hITyc783-932FexJvbtdbCleveland Clinic Akron GeneralComment on above:Performed By: #### TSC #### [facility] ([facility]) [address] [place] [address] VIRRBC COUNT2.91 X10E12/LLow3.8-5.2PCleveland Clinic Foundation Comment on above:Performed By: #### TSC #### [facility] ([facility]) [address] [place] [address] VIRWBC (Bld) [#/Vol]9.1 10*3/uLNormal4-11[facility] CenterComment on above:Performed By: #### TSC #### [facility] ([facility]) [address] [place] [address] VIRCBC auto differentialon [id number] (Bld) [#/Vol]0 10*3/uL0.0 - 0.2 10*3/uLAdams County HospitalBasophils/100 WBC (Bld)0.2 % [facility] HospitalDifferential cell count method Nom (Bld)AUTOMATED DIFFERENTIALAdams County HospitalEosinophils (Bld) [#/Vol]0 10*3/uL0.0 - 0.4 10*3/uLAdams County HospitalEosinophils/100 WBC (Bld)0.3 %[facility] HospitalErythrocyte distribution width (RBC) [Ratio]12.6 %11.5 - 15 %[facility] HospitalHematocrit (Bld) [Volume fraction]28.2 %Low35 - 47 %[facility] HospitalHemoglobin (Bld) [Mass/Vol]9.3 g/dLLow11.7 - 15.5 g/dLAdams County HospitalInterpretation and review of laboratory resultsAbnormalAdams County HospitalLymphocytes (Bld) [#/Vol]0.4 10*3/uLLow1.0 - 3.5 10*3/uLAdams County HospitalLymphocytes/100 WBC (Bld)4.5 %[facility] CantonH (RBC) [Entitic mass]32.1 pg27 - 34 pgPKettering Health PrebleMCHC (RBC) [Mass/Vol]33.1 g/dL32 - 36 g/dLAdams County HospitalMCV (RBC) [Entitic vol]97 fL80 - 100 fL [facility] HospitalMonocytes (Bld) [#/Vol]0.8 10*3/uL0.0 - 0.9 10*3/uL [facility] HospitalMonocytes/100 WBC (Bld)8.3 %[facility] Neutrophils (Bld) [#/Vol]7.9 10*3/uLHigh1.5 - 6.6 10*3/uLAdams County Hospital Neutrophils/100 WBC (Bld)86.7 %[facility] HospitalPlatelet mean volume (Bld) [Entitic vol]9 fL7 - 12 [facility] LouisPlatelets (Bld) [#/Vol]138 10*3/uLLowAdams County HospitalRBC (Bld) [#/Vol]2.91 10*6/uLOhio State East HospitalWBC LM Ql (Sput)9.1PGeisinger Community Medical Center COMPREHENSIVE METABOLIC PANELon 49-10-4747Beeaicg [Mass/Vol]3.2 g/dLNormal 3.2-5.3PCleveland Clinic FoundationComment on above:Performed By: #### PAB #### [facility] ([facility]) [address] [place] [address] VIRALP [Catalytic activity/Vol]118 U/UEolvmq19-833UgaWovsypPremier Health Upper Valley Medical CenterComment on above:Performed By: #### PAB #### [facility]) [address] [place] [address] VIRALT [Catalytic activity/Vol]339 U/LHigh<=31PCleveland Clinic FoundationComment on above:Performed By: #### PAB #### [facility]) [address] [place] [address] VIRAnion gap [Moles/Vol]8 mmol/LNormal5-15ProMedica Paul HospitalComment on above:Performed By: #### PAB #### [facility] ([facility]) [address] [place] [address] VIRAST [Catalytic activity/Vol]261 U/LHigh<=41ProMedica Paul HospitalComment on above:Performed By: #### PAB #### [facility]) [address] [place] [address] VIRBilirubin [Mass/Vol]0.4 mg/dLNormal0.3-1.2ProMedica [place] HospitalComment on above:Performed By: #### PAB #### [facility]) [address] [place] [address] VIRCalcium [Mass/Vol]9.1 mg/dLNormal8.5-10.5ProMedica [place] HospitalComment on above:Performed By: #### PAB #### [facility] ([facility]) [address] [place] [address] VIRChloride [Moles/Vol]102 mmol/KIabayg58-834TfiXndsza [place] HospitalComment on above:Performed By: #### PAB #### [facility]) [address] [place] [address] VIRCO2 [Moles/Vol]26 mmol/QLmvctr17-31UeqFodbsb [facility] Comment on above:Performed By: #### PAB #### [facility]) [address] [place] [address] VIRCreatinine [Mass/Vol]2.45 mg/dLHigh0.40-1.00ProHighland District Hospital HospitalComment on above:Result Comment: METHOD TRACEABLE TO IDMS STANDARD Performed By: #### PAB #### [facility]) [address] [place] [address] VIRGFR/1.73 sq M.predicted among non-blacks MDRD (S/P/Bld) [Vol rate/Area]20 mL/min/{1.73_m2}Low>=60ProMedica [place] HospitalComment on above: Result Comment: Reported eGFR is based on the CKD-EPI 2020 equation that does not use a race coefficient.Performed By: #### PAB #### [facility]) [address] [place] [address] VIRGlucose [Mass/Vol]207 mg/oOXsbh36-05BfyVsrarx [place] HospitalComment on above:Performed By: #### PAB #### [facility] ([facility]) [address] [place] [address] VIRPotassium [Moles/Vol]5.2 mmol/LHigh3.5-5.0ProMemorial Health Systemca [place] HospitalComment on above:Performed By: #### PAB #### [facility]) [address] [place] [address] VIRProtein [Mass/Vol]5.7 g/dLLow6.0-8.0ProHighland District Hospital HospitalComment on above:Performed By: #### PAB #### [facility]) [address] [place] [address] VIRSodium [Moles/Vol]136 mmol/YQguldq038-741KukOzsqtb [place] HospitalComment on above:Performed By: #### PAB #### [facility]) [address] [place] [address] VIRUrea nitrogen [Mass/Vol]50 mg/dLHigh5-27ProHighland District Hospital HospitalComment on above:Performed By: #### PAB #### [facility] ([facility]) [address] [place] [address] VIRCOMPREHENSIVE METABOLIC PANELCMP COMPREHENSIVE METABOLIC PANEL CancelledNormalProMemorial Health Systemca [place] HospitalComment on above:Order Comment: I SPOKE TO TAHMINA TORRES AT 0755AM FOR A REDRAW AND SHE SAID SOMEONE HAD ALREADY CALLED FOR A REDRAW.Cardiac echo study ProcedureOrdered By: Derrek Llanes on 99-41-8275Isnajv root3.5 [employer] Work Phone: [phone] valve Mean systole pressure gradient by US.doppler derived full Hhxpacvbg2vvTsQeyCcgfaf Health System Work Phone: Aortic valve Peak systolic flow by US.lotuxlk820 cm/s [employer] Work Phone: AV peak gradient6.55mmHgVermont State HospitalRule. Work Phone: AV Velocity Ratio0.99[facility] HospitalRule. Work Phone: AV VTI33 [employer] Work Phone: [phone] wave deceleration mdnw543lpjnDtcBhfrsvEndoEvolution Work Phone: E/A ratio1.31PNext[employer] Work Phone: [phone] loss index17.98[facility] HospitalRule. Work Phone: [phone]. RA cilixhzf4avBpSokUpdhyfEndoEvolution Work Phone: [phone] %28 - 44 %[employer] Work Phone: [phone] Vena Cava Diameter2 [employer] Work Phone: [phone] Septum Diastolic Thickness by 2D11 cm [employer] Work Phone: IVC pwjogjhg36 [employer] Work Phone: [phone] cm0.6 - 1.1 [employer] Work Phone: [phone] size4.1 [employer] Work Phone: [phone] bxqepj20.6 ax3XkqRgciqaRule. Work Phone: [phone] Volume Index51.2 mL/b5SkwWauplxRule. Work Phone: [phone] Ventricle [phone] [facility] Center & Research InstituteLoudCloud Systems Work Phone: LV ESV E6U605 mLVermont State HospitalNomanini System Work Phone: [phone] ESV A4C94.4 mLVermont State HospitalNomanini System Work Phone: [phone] RWT 5S50KdfCbdkswRule. Work Phone: [phone] cm4.42 - 6.14 [facility] HospitalNextwave Software Work Phone: [phone] cm2.61 - 3.96 [facility] HospitalNextwave Software Work Phone: LVOT peak vel1.11 m/[facility] Hospital [facility] Wisconsin– MilwaukeeLoudCloud Systems Work Phone: [phone] peak VTI32.8 [facility] HospitalNext[facility] Software Work Phone: MV Peak A Oqp529 cm/[employer] Work Phone: MV Peak E Rwt214 cm/[employer] Work Phone: MV pressure 1/2 time69 RUSTNext[employer] Work Phone: MV TDI E' (medial)5.43 cm/[employer] Work Phone: MV valve area p 1/2 method3.19 hx4UluBgcxmtRule. Work Phone: PV peak gradient4.24mmHgVermont State HospitalRule. Work Phone: VE8.1 cm0.6 - 1.1 [facility] HospitalNext[facility] Software Work Phone: RA area16.5 uc3ZusAoqrvjRule. Work Phone: RV diastolic dimension (basal)32 [facility] Hospital [facility] BeachNextwave Software Work Phone: TEAAZ0.28 [facility] HospitalNextwave Software Work Phone: RZD5.01 cm/iGl[employer] Work Phone: QFAQYP-6.69[facility] HospitalRule. Work Phone: AWZGAE-1.09[facility] HospitalRule. Work Phone: [phone] Work Phone: Cardiac echo study Procedureon 02-10-8637XBGXDGC Radiology Study observation (narrative)[facility] HospitalComprehensive metabolic panelon 53-78-1920Uhfrqir [Mass/Vol]3.2 g/dL3.2 - 5.3 g/dLProClermont County Hospital SystemALP [Catalytic activity/Vol]118 U/L39 - 130 U/LProMedica Health SystemALT No additional P-5'-P [Catalytic activity/Vol]339 U/LHighNINF - 31 U/L [facility] HospitalAnion gap [Moles/Vol]8 mmol/L5 - 15 mmol/LProMedica Health SystemAST [Catalytic activity/Vol]261 U/LHighNINF - 41 U/LProMedica Health SystemBilirubin [Mass/Vol]0.4 mg/dL0.3 - 1.2 mg/dLTriHealth System Calcium [Mass/Vol]9.1 mg/dL8.5 - 10.5 mg/dLTriHealth SystemChloride [Moles/Vol]102 mmol/L98 - 109 mmol/LProMedica Health SystemCO2 [Moles/Vol]26 mmol/L22 - 32 mmol/LProMedica Health SystemCreatinine [Mass/Vol]2.45 mg/dLHigh 0.40 - 1.00 mg/dLTriHealth SystemEGFR Non-Race Dnmwcaxfm86Usu- PINF [facility] HospitalGlucose [Mass/Vol]207 mg/nAPjrc73 - 99 mg/dLTriHealth SystemInterpretation and review of laboratory resultsAbnormalProClermont County Hospital SystemPotassium [Moles/Vol]5.2 mmol/LHigh3.5 - 5.0 mmol/LProMedica Health SystemProtein [Mass/Vol]5.7 g/dLLow6.0 - 8.0 g/dLMercy Health St. [facility] Health SystemSodium [Moles/Vol]136 mmol/L134 - 146 mmol/LProMedica Health SystemUrea nitrogen [Mass/Vol]50 mg/dLHigh5 - 27 mg/dLTriHealth SystemECG 12 leadon 39-96-7405ZRJATNXJBWCUNRDgdZihnkw Health SystemLaboratory - Chemistry and Chemistry - challengeon 18-25-8932Byccbcienx (U) [Mass/Vol]83.62 mg/dLTriHealth SystemMAGNESIUMon 67-52-8868Pzceihlvo [Mass/Vol]2.3 mg/dLNormal1.8-2.6 ProMencompass health rehabilitation hospital of gadsdena [facility] Bucyrus HospitalComment on above:Performed By: #### PAB #### [facility]) [address] [place] [address] VIRMAGNESIUMMG MAGNESIUM CancelledNormalSt. Elizabeth Hospital HospitalComment on above:Order Comment: I SPOKE TO TAHMINA TORRSE AT 0755AM FOR A REDRAW AND SHE SAID SOMEONE HAD ALREADY CALLED FOR A REDRAW.MICROALBUMIN / CREATININE URINE RATIOon 00-85-2393Dzorfxh DL <= 20 mg/L (U) [Mass/Vol]22.6 mg/dLHigh0.0-1.9ProCleveland Clinic Akron GeneralComment on above:Performed By: #### PAB #### [facility] ([facility]) [address] [place] [address] VIRMALB/CREAT SPMGP376.3 mg/gHigh0.0-30.0Premier Health Upper Valley Medical CenterComment on above:Performed By: #### PAB #### [facility] ([facility]) [address] [place] [address] VIRURINE CREATININE,RDM83.62 mg/dLNormalPremier Health Upper Valley Medical CenterComment on above:Performed By: #### PAB #### [facility]) [address] [place] [address] VIROrder Comment: Nephrotic Syndrome is associated with ratios >3.5MICROSCOPIC URINEon 61-25-8970IUNONNOgaajbdAjkixwgpYhxuDnnKuobah [facility] HospitalComment on above:Performed By: #### PAB #### [facility] ([facility]) [address] [place] [address] VIROrder Comment: Urine received without preservative. Delays in transport may affect results. Interpret with caution. A clinical correlation is recommended.Performed By: #### BMP #### [facility] ([facility]) [address] [place] [address] VIRR.B.TKGUU1Owqlfa6-2PfwEostmv [place] HospitalComment on above:Performed By: #### PAB #### [facility] ([facility]) [address] [place] [address] VIRW.B.GSBSK06Vmiy7-1HfsThaalcCleveland Clinic FoundationComment on above: Performed By: #### PAB #### [facility] ([facility]) [address] [place] [address] VIRMagnesiumon 43-16-8879Nyjepjqkouzvfu and review of laboratory resultsNoWilson Medical CenterMagnesium [Mass/Vol]2.3 mg/dL1.8 - 2.6 mg/dLAdams County HospitalMicroalbumin - Albumin: Creatinine Urine Ratio on 11-28-4289Whpbbbf DL <= 20 mg/L (U) [Mass/Vol]22.6 mg/dLHigh0.0 - 1.9 mg/dL [facility] HospitalAlbumin/Creatinine DL <= 1.0 mg/L (U) [Ratio]270.3 mg/g High0.0 - 30.0 mg/gPrRegency Hospital CompanyMicroscopic, urineon 11-28-2024 Interpretation and review of laboratory resultsAbCentral Park Hospital Mucus Ql (Urine sed)PresentAbnoOlean General HospitalRBC Auto (Urine sed) [#/Area][facility]tering Health PrebleWBC Auto (Urine sed) [#/Area]35Csfy6 - 5PGeisinger Community Medical CenterNo Panel Informationon 64-56-6611Hzmhmgyzvfiwck and review of laboratory resultsAbMendota Mental Health InstitutePROTEIN CREAT RATIOon 11-28-2024U/PRO/SHUTTLER CAR RATIO CALC1.52High<=0.20[facility] on above:Order Comment: Nephrotic Syndrome is associated with ratios >3.5Performed By: #### PAB #### [facility]) [address] [place] [address] VIRURINE PROTEIN, RANDOM (MG/L)1270 mg/LHigh<120ProCleveland Clinic Akron GeneralComment on above:Order Comment: Nephrotic Syndrome is associated with ratios >3.5Performed By: #### PAB #### [facility] ([facility]) [address] [place] [address] VIRProtein creat ratioon 81-29-8015Qcpiwrw (U) [Mass/Vol]1270 mg/LHighNINF - 120 mg/LProMedica Health SystemProtein/Creatinine (U) [Ratio]1.52 HighNINF - 0.20ProMedica Health SystemProMediwa Health SystemSODIUM, URINE, RANDOMon 66-44-3331Iwkvcs (U) [Moles/Vol]20 mmol/LNormalProHighland District Hospital HospitalComment on above:Performed By: #### PAB #### [facility] ([facility]) [address] [place] [address] VIRSodium, urine, randomon 35-38-7328Vgwxar (U) [Moles/Vol]20 mmol/LProMedica Health SystemUREA RANDOM, URINEon 21-52-8668BBGFL UREA NITROGEN,RSSOYI549 mg/dLNormalPremier Health Upper Valley Medical CenterComment on above: Performed By: #### PAB #### [facility] ([facility]) [address] [place] [address] VIRURINALYSISon 24-95-8799Pauyagrsb Ql (U)NegativeNormal NegativePremier Health Upper Valley Medical CenterComment on above:Order Comment: Urine received without preservative. Delays in transport may affect results. Interpret with caution. A clinical correlation is recommended.Performed By: #### BMP #### [facility] ([facility]) [address] [place] [address] VIRBLOOD/HGBSmallAbnormalNegativeSt. [facility] Hospital Hospital Comment on above:Order Comment: Urine received without preservative. Delays in transport may affect results. Interpret with caution. A clinical correlation is recommended.Performed By: #### BMP #### [facility] ([facility]) [address] [place] [address] VIRColor (U)YellowNormalYellowProCleveland Clinic Akron GeneralComment on above:Order Comment: Urine received without preservative. Delays in transport may affect results. Interpret with caution. A clinical correlation is recommended.Performed By: #### BMP #### [facility] ([facility]) [address] [place] [address] VIRGlucose Ql (U)500 mg/dLAbnormalNegativePremier Health Upper Valley Medical CenterComselect specialty hospital[facility] on above:Order Comment: Urine received without preservative. Delays in transport may affect results. Interpret with caution. A clinical correlation is recommended.Performed By: #### BMP #### [facility] ([facility]) [address] [place] [address] VIRHyaline casts LM Ql (Urine sed)0Jieyem6-6KnnFcmrmc [facility] Bucy[facility] HospitalComselect specialty hospital-[facility] on above:Order Comment: Urine received without preservative. Delays in transport may affect results. Interpret with caution. A clinical correlation is recommended.Performed By: #### BMP #### [facility] ([facility]) [address] [place] [address] VIRKetones Ql (U)NegativeNormalNegativePremier Health Upper Valley Medical CenterComselect specialty hospital[facility] on above:Order Comment: Urine received without preservative. Delays in transport may affect results. Interpret with caution. A clinical correlation is recommended.Performed By: #### BMP #### [facility] ([facility]) [address] [place] [address] VIRLeukocyte esterase Test strip Ql (U)NegativeNormalNegative [facility] HospitalComselect specialty hospital[facility] on above:Order Comment: Urine received without preservative. Delays in transport may affect results. Interpret with caution. A clinical correlation is recommended.Performed By: #### BMP #### [facility] ([facility]) [address] [place] [address] VIRNitrite Ql (U)NegativeNormalNegativeProCleveland Clinic Akron GeneralComment on above:Order Comment: Urine received without preservative. Delays in transport may affect results. Interpret with caution. A clinical correlation is recommended.Performed By: #### BMP #### [facility] ([facility]) [address] [place] [address] VIRPH,URINE5.1Auekue8.0-8.5PCleveland Clinic FoundationComment on above:Order Comment: Urine received without preservative. Delays in transport may affect results. Interpret with caution. A clinical correlation is recommended.Performed By: #### BMP #### [facility]) [address] [place] [address] VIRProtein Ql (U)50 mg/dLAbnormalNegativePremier Health Upper Valley Medical CenterComselect specialty hospital[facility] on above:Order Comment: Urine received without preservative. Delays in transport may affect results. Interpret with caution. A clinical correlation is recommended.Performed By: #### BMP #### [facility] ([facility]) [address] [place] [address] VIRR.B.CELLS<^4Gqsucr3-9PxjGwlyxmCleveland Clinic FoundationComment on above:Order Comment: Urine received without preservative. Delays in transport may affect results. Interpret with caution. A clinical correlation is recommended.Performed By: #### BMP #### [facility] ([facility]) [address] [place] [address] VIRSpecific gravity (U) [Rel density]1.464Yofbqc9.003-1.035 [facility] Bucyrus HospitalComment on above:Order Comment: Urine received without preservative. Delays in transport may affect results. Interpret with caution. A clinical correlation is recommended.Performed By: #### BMP #### [facility]) [address] [place] [address] VIRSQUAMOUS UWMKWCKEGC5Ioopnc3-5AihYzvyel [facility] Comment on above:Order Comment: Urine received without preservative. Delays in transport may affect results. Interpret with caution. A clinical correlation is recommended.Performed By: #### BMP #### [facility] ([facility]) [address] [place] [address] VIRTURBIDITYClearNormalClearPremier Health Upper Valley Medical CenterComselect specialty hospital[facility] on above:Order Comment: Urine received without preservative. Delays in transport may affect results. Interpret with caution. A clinical correlation is recommended.Performed By: #### BMP #### [facility] ([facility]) [address] [place] [address] VIRUROBILINOGEN<1.1 eu/dLNormal<1.1 eu/dLProCleveland Clinic Akron GeneralComselect specialty hospital[facility] on above:Order Comment: Urine received without preservative. Delays in transport may affect results. Interpret with caution. A clinical correlation is recommended.Performed By: #### BMP #### [facility] ([facility]) [address] [place] [address] VIRW.B.MNHNN47Ivvp5-5YaiAwjnsm [facility] HospitalComselect specialty hospital[facility] on above: Order Comment: Urine received without preservative. Delays in transport may affect results. Interpret with caution. A clinical correlation is recommended. Performed By: #### BMP #### [facility]) [address] [place] [address] VIRURINE CREATININE,RANDOMon 12-87-9276HBYAG CREATININE,RDM 85.13 mg/dLNoalPremier Health Upper Valley Medical CenterComselect specialty hospital[facility] on above:Performed By: #### PAB #### [facility] ([facility]) [address] [place] [address] VIRUS RETROPERITONEAL COMPLETEon 50-74-8260BH RETROPERITONEAL COMPLETEUS RETROPERITONEAL COMPLETE US RETROPERITONEAL COMPLETE [...] by Jayden Fernandez MD on 11/28/2024 10:14 AMNormalProMemorial Health Systemca Paul HospitalUS Retroperitoneumon 26-43-4499NCYYRUBPRKOgdNqtntl Health System Radiology Study observation (narrative)[facility] Retroperitoneum Ordered By: Jayden Fernandez on 06-92-5843XjsNfpqajAdams County Hospital Work Phone: Urea random, urineon 23-30-9014Zcej nitrogen (24H U) [Mass/Vol]607 mg/dLAdams County HospitalUrinalysisOrdered By: Violeta Mkceon on 31-38-7184Xtjtgnqsk Ql (U)NegativeNegativeTriHealth System Color (U)YellowYellowTriHealth SystemEpithelial cells Auto (Urine sed) [#/Area]10 - 5PKettering Health PrebleGlucose (U) [Mass/Vol]500 mg/dLAbnormal NegativeAdams County HospitalHemoglobin Auto test strip Ql (U)SmallAbnormal NegativeAdams County HospitalHyaline casts (Urine sed) [#/Area]1 /[LPF]0 - 2 [facility] HospitalInterpretation and review of laboratory resultsAbnormal [facility] HospitalKetones (U) [Mass/Vol]NegativeNegativeTriHealth SystemLeukocyte esterase Auto test strip Ql (U)NegativeNegativeAdams County HospitalMucus Ql (Urine sed)PresentAbnormalGeneva General HospitalNitrite Auto test strip Ql (U)NegativeNegativeAdams County HospitalpH (U)5.5 [pH]5.0 - 8.5 [facility] SystemProtein (U) [Mass/Vol]50 mg/dLAbnormalNegativeAdams County HospitalRBC Auto (Urine sed) [#/Area]0 - 5PRandolph Healthpecific gravity Refractometry automated (U) [Rel density]1.0181.003 - 1.035Adams County HospitalTurbidity Ql (U)ClearClearPKettering Health PrebleUrobilinogen Qn (U){Kaushik'U}/dL<1.1 eu/dLAdams County HospitalWBC Auto (Urine sed) [#/Area] 75Oeuu8 - 5PFroedtert [facility] [facility] [place] Urine Creatinine,randomon 39-03-0254Ftjrccxlxg (U) [Mass/Vol]85.13 mg/dL [facility] HospitalALBUMINon 73-89-9976Lgzzvfn [Mass/Vol]3.4 g/dLNormal3.2-5.3PCleveland Clinic FoundationComment on above: Performed By: #### TSC #### [facility] ([facility]) [address] [place] [address] VIRAlbuminon 46-36-0017Ylmfgjz [Mass/Vol]3.4 g/dL3.2 - 5.3 g/dL [facility] HospitalB-TYPE NATRIURETIC PEPTIDEon 97-23-0961Mjzpmenjqag peptide B (Bld) [Mass/Vol]605 pg/mLHigh<=100Prem[facility] Health Upper Valley Medical CenterComment on above:Performed By: #### TSC #### [facility] ([facility]) [address] [place] [address] VIRB-type natriuretic peptideon 35-52-3445Zwimmapxurpacm and review of laboratory resultsAbnormalAdams County HospitalNatriuretic peptide B (Bld) [Mass/Vol]605 pg/mLHighNINF - 100 pg/mLTyler Memorial HospitalBASIC METABOLIC PANELon 73-58-3501Opbod gap [Moles/Vol]7 mmol/L Normal5-15Premier Health Upper Valley Medical CenterComment on above:Performed By: #### BMP ####[facility])[address] [address] VIRCalcium [Mass/Vol]9.1 mg/dLNormal8.5-10.5PCleveland Clinic Foundation Comment on above:Performed By: #### BMP ####[facility] ([facility])[address] [address] VIRChloride [Moles/Vol]105 mmol/L Sithrq23-499WrqFzyocr [place] HospitalComment on above:Performed By: #### BMP ####[facility] ([facility])[address] [address] VIRCO2 [Moles/Vol]28 mmol/XOratqj68-81NouSyioib [place] HospitalComment on above:Performed By: #### BMP ####[facility] ([facility])[address] [address] VIRCreatinine [Mass/Vol]2.53 mg/dLHigh 0.40-1.00ProCleveland Clinic Akron GeneralComment on above:Result Comment: METHOD TRACEABLE TO IDMS STANDARDPerformed By: #### BMP ####[facility] ([facility])[address] [address] VIRGFR/1.73 sq M.predicted among non-blacks MDRD (S/P/Bld) [Vol rate/Area]19 mL/min/{1.73_m2} Low>=60ProCleveland Clinic Akron GeneralComment on above:Result Comment: Reported eGFR is based on the CKD-EPI 1 equation that does not use a race coefficient.Performed By: #### BMP ####[facility] ([facility])[address] [address] VIRGlucose [Mass/Vol]151 mg/dUAytd97-38GsxIjwgvr [place] HospitalComment on above:Performed By: #### BMP ####[facility] [facility])[address] [address] VIRPotassium [Moles/Vol]4.5 mmol/LNormal3.5-5.0[facility] Comment on above:Performed By: #### BMP ####[facility] ([facility])[address] [facility] [address] [place] [address] VIRSodium [Moles/Vol]140 mmol/L Maorxe014-351BqdFnxduc [place] HospitalComment on above:Performed By: #### BMP ####[facility] ([facility])[address],[place] [address] VIRUrea nitrogen [Mass/Vol]49 mg/dLHigh5-27[facility] Comment on above:Performed By: #### BMP ####[facility] ([facility])[address] [address] VIRBEDSIDE GLUCOSEon 11-27-2024 Glucose [Mass/Vol]290 mg/pWSpmc70-93NeuTfkpjvPremier Health Upper Valley Medical CenterComment on above: Performed By: #### TSC #### [facility] ([facility]) [address] [place] [address] VIRGlucose [Mass/Vol]245 mg/xFHxaj53-28BlhZuqgihAdams County Hospital Comment on above:Performed By: #### BEDG ####[facility] ([facility])[address] [place] [address] VIRGlucose [Mass/Vol]174 mg/yEEnlr74-93 [facility] CenterComment on above:Performed By: #### BEDG ####[facility] ([facility])[address] [place] [address] VIRGlucose [Mass/Vol]147 mg/eQMbum32-55QlaCywjmrPremier Health Upper Valley Medical CenterComment on above:Performed By: #### BEDG ####[facility] ([facility])[address] [place] [address] VIRBasic Metabolic Panelon 28-90-3732Bgjoj gap [Moles/Vol]7 mmol/L5 - 15 mmol/LProMedica Health SystemCalcium [Mass/Vol]9.1 mg/dL8.5 - 10.5 mg/dL [facility] Health SystemChloride [Moles/Vol]105 mmol/L98 - 109 mmol/LProMedica Health SystemCO2 [Moles/Vol]28 mmol/L22 - 32 mmol/LProMedica Health System Creatinine [Mass/Vol]2.53 mg/dLHigh0.40 - 1.00 mg/dLTriHealth SystemEGFR Non-Race Lkifcmpns73Fts- PINFProMedica [facility] SystemGlucose [Mass/Vol]151 mg/dL High65 - 99 mg/dLTriHealth SystemInterpretation and review of laboratory resultsAbnormalMercy Health St. [facility] Health SystemPotassium [Moles/Vol]4.5 mmol/L3.5 - 5.0 mmol/LProMedica Health SystemSodium [Moles/Vol]140 mmol/L134 - 146 mmol/L [facility] SystemUrea nitrogen [Mass/Vol]49 mg/dLHigh5 - 27 mg/dLAdams County HospitalBedside Glucose *Place/Obtain serum glucose if >500 per glucometer.on 77-10-3489Wktkbhi [Mass/Vol]290 mg/lSZrgw82 - 99 mg/dLTriHealth SystemInterpretation and review of laboratory resultsAbnormPenn State Health [facility] SystemTriHealth SystemInterpretation and review of laboratory resultsAbnoSt. Luke's University Health Network SystemTriHealth SystemGlucose [Mass/Vol] 147 mg/dGFrxz52 - 99 mg/dLTriHealth SystemInterpretation and review of laboratory resultsAbnoSt. Luke's University Health Network SystemTriHealth SystemGlucose [Mass/Vol]174 mg/pLQqvw73 - 99 mg/dLTriHealth SystemInterpretation and review of laboratory resultsAbRichland Hospital SystemCBC (NO DIFF)on 22-13-3592Ffoqlswjvlp distribution width (RBC) [Ratio]12.6 %Vowoue86.5-15[facility] CenterComment on above:Performed By: #### CBCA #### [facility] ([facility]) [address] [place] [address] VIRHematocrit (Bld) [Volume fraction]32.1 %Jfe53-66PdnOwowzx Paul HospitalComment on above:Performed By: #### CBCA #### [facility] ([facility]) [address] [place] [address] VIRHemoglobin (Bld) [Mass/Vol]11.0 g/dLLow11.7-15.5ProMedica [place] HospitalComment on above:Performed By: #### CBCA #### [facility] ([facility]) [address] [place] [address] VIRMCH (RBC) [Entitic mass]33.3 ctEgyxii60-95NhzKbvexw [place] HospitalComment on above:Performed By: #### CBCA #### [facility] ([facility]) [address] [place] [address] VIRMCHC (RBC) [Mass/Vol]34.2 g/kFErdjna71-04IyeBkdpvr [place] HospitalComment on above:Performed By: #### CBCA #### [facility] ([facility]) [address] [place] [address] VIRMCV (RBC) [Entitic vol]97 tQJljzbx38-763KerHarjjh [place] HospitalComment on above:Performed By: #### CBCA #### [facility] ([facility]) [address] [place] [address] VIRPlatelet mean volume (Bld) [Entitic vol]9.0 fLNormal7-12 [facility] [place] HospitalComment on above:Performed By: #### CBCA #### [facility] ([facility]) [address] [place] [address] VIRPlatelets (Bld) [#/Vol]147 10*3/lMByi690-326KhzCfsijv Paul HospitalComment on above:Performed By: #### CBCA #### [facility] ([facility]) [address] [place] [address] VIRRBC COUNT3.30 X10E12/LLow3.8-5.2PCleveland Clinic Foundation Comment on above:Performed By: #### CBCA #### [facility] ([facility]) [address] [place] [address] VIRWBC (Bld) [#/Vol]8.1 10*3/uLNormal4-11[facility] CenterComment on above:Performed By: #### CBCA #### [facility] ([facility]) [address] [place] [address] VIRCBC without diffon 95-24-2672Ifbnjrpznge distribution width (RBC) [Ratio]12.6 %11.5 - 15 %Ad[facility] County HospitalHematocrit (Bld) [Volume fraction]32.1 %Low35 - 47 %Ad[facility] County HospitalHemoglobin (Bld) [Mass/Vol]11 g/dLLow11.7 - 15.5 g/dLAdams County HospitalInterpretation and review of laboratory resultsAbnoRutherford Regional Health SystemH (RBC) [Entitic mass]33.3 pg 27 - 34 [facility] Medical CenterMCHC (RBC) [Mass/Vol]34.2 g/dL32 - 36 g/dL [facility] County HospitalMCV (RBC) [Entitic vol]97 fL80 - [address] [facility] [address] LouisPlatelet mean volume (Bld) [Entitic vol]9 fL7 - [address] [facility] [address] LouisPlatelets (Bld) [#/Vol]147 10*3/uLLowAdams County HospitalRBC (Bld) [#/Vol]3.3 10*6/uLOhio State East HospitalWBC LM Ql (Sput)8.1PGeisinger Community Medical CenterCK TOTALon 09-32-6271UXC67 U/PDnh76-978WwyEhichwPremier Health Upper Valley Medical CenterComment on above:Performed By: #### TSC #### [facility] ([facility]) [address] [place] [address] VIRCK Totalon 30-42-5246GX [Catalytic activity/Vol]18 U/LLow24 - 170 U/LProMedica Health SystemInterpretation and review of laboratory results AbnormalAdams County HospitalNo Panel Informationon 05-00-0324Fptkzfizeeqyfz and review of laboratory resultsNormalProRiverview Regional Medical Center Health SystemProClermont County Hospital SystemProClermont County Hospital SystemPARATHYROID HORMOME, INTACTon 54-19-0107CYX INTACT 116 pg/fVZxur36-97EwzPzwmkx [place] HospitalComment on above:Performed By: #### PTH ####[facility] ([facility])[address] [facility] [address] [address] VIRPHOSPHORUSon 92-41-3232Wpjvuxcyt [Mass/Vol]4.3 mg/dLNormal2.4-4.9 [facility] CenterComment on above:Performed By: #### PHOS ####[facility] ([facility])[address] [facility] [facility] [address], [place] [address] VIR PREALBUMINon 27-75-7367Mleninkqbf [Mass/Vol]27 mg/cFFexazj31-18CesQcsrdw [place] HospitalComment on above:Performed By: #### PAB ####[facility] ([facility])[address] [facility] [address] [place] [address] VIRParathyroid Hormone, intacton 79-27-6223Xvknpqfquhzyan and review of laboratory resultsAbnormal [facility] County HospitalParathyrin.intact [Mass/Vol]116 pg/kGJyxa87 - 88 pg/mL [facility] SystemPhosphoruson 20-21-1408Cznrdrnvl [Mass/Vol]4.3 mg/dL2.4 - 4.9 mg/dLAdams County HospitalPrealbuminon 11-27-2024 Interpretation and review of laboratory resultsNormalAdams County Hospital Prealbumin IA [Mass/Vol]27 mg/dL18 - 45 mg/dLAdams County HospitalURIC ACIDon 37-72-4621Iamva [Mass/Vol]6.6 mg/dLNormal2.6-7.2POchsner Medical Centerica [place] HospitalComment on above:Performed By: #### TSC #### [facility] ([facility]) [address] [place] [address] VIRUric acidon 12-33-8890Mvbtt [Mass/Vol]6.6 mg/dL2.6 - 7.2 mg/dLAdams County HospitalVITAMIN D 25 HYDROXYon 12-67-3536RZPHBRO D 25 HYD TOT23.1 ng/mLLow30.0-100.0[facility] CenterComment on above:Order Comment: Vitamin D status 25 [place] Vitamin D Deficiency <20 ng/mLInsufficiency 20-29 ng/mLSufficiency 30-100 ng/mLToxicity >100 ng/mLNOTE: A pediatric reference range has not been established by the refuse collector supervisor of this kit. The [place] [employer] recommends a Vitamin D level of = or >20ng/mL in infants and children.Performed By: #### VITD ####[facility] ([facility])[address] [address] VIRVitamin D 25 hydroxyon 44-23-200223097096-fcrsdxkvlyofiy D3 [Mass/Vol]23.1 ng/mLLow30.0 - 100.0 ng/mLAdams County HospitalInterpretation and review of laboratory results AbnormalMilwaukee County General Hospital– [place][note 2]XR CHEST 1 VWon 11-61-5240PU CHEST 1 VWXR CHEST 1 VW EXAM: XR CHEST 1 VW CLINICAL INFORMATION: CHF. COMPARISON: 06/09/2016 FINDINGS: There are no pleural effusions. There are low lung volumes with some associated hypoventilatory changes. Next able heart IMPRESSION: 1. No acute cardiopulmonary disease. Finalized by Adolfo Jessica MD on 11/27/2024 9:55 PMNormalPremier Health Upper Valley Medical CenterXR Chest Single viewon 00-87-1100LULTLSLHEOVgrCnjbaw Health SystemRadiology Study observation (narrative)[facility] HospitalXR Chest Single viewOrdered By: Adolfo Jessica on 37-10-6550ShnVxuzeqAdams County Hospital Work Phone: XR HIP RT 2-3 VIEWS W OR WO PELVISon 48-85-6428RO HIP RT 2-3 VIEWS W OR WO [...] Everett Rivera MD on 11/27/2024 5:33 PMNormalProMedica Louisville HospitalXR HIP RT 2-3 VIEWS W OR WO PELVISXR HIP RT 2-3 VIEWS W OR WO PELVIS XR HIP RT 2-3 VIEWS W OR WO PELVIS IMPRESSION: right dylon Intraoperative fluoroscopy provided. The reference air kerma was 1.35 mGy. Finalized by Boyd Thompson MD on 11/27/2024 2:34 PMNormalPremier Health Upper Valley Medical CenterXR Pelvis and Hip - right 2 Viewson 88-04-5406PTQDZHADORLnrDkuarw Health SystemRadiology Study observation (narrative)[facility] SouthParkECTRAMountain View Hospital SystemRadiology Study observation (narrative)[facility] HospitalXR Pelvis and Hip - right 2 ViewsOrdered By: Everett Rivera on 11-27-2024 [facility] Work Phone: XR Pelvis and Hip - right 2 ViewsOrdered By: Boyd Thompson on 09-07-6515HbtZplzsoAdams County Hospital Work Phone: B-TYPE NATRIURETIC PEPTIDEon 47-02-0435Pndehvahkjj peptide B (Bld) [Mass/Vol]382 pg/mLHigh<=100[facility] CenterComment on above:Performed By: #### CBCA #### [facility] ([facility]) [address] [place] [address] VIRB-type natriuretic peptideon 92-19-7603Jpowsqioonavga and review of laboratory resultsAbnormalAdams County HospitalNatriuretic peptide B (Bld) [Mass/Vol]382 pg/mLHighNINF - 100 pg/mLAdams County HospitalProSalem City HospitalBASIC METABOLIC PANELon 02-01-7792Sodhc gap [Moles/Vol]11 mmol/L Normal5-15[facility] CenterComment on above:Performed By: #### BMP #### [facility] ([facility]) [address] [place] [address] VIRCalcium [Mass/Vol]9.3 mg/dLNormal8.5-10.5PCleveland Clinic FoundationComment on above:Performed By: #### BMP #### [facility] ([facility]) [address] [place] [address] VIRChloride [Moles/Vol]103 mmol/FDefwqr51-849GybAwygte [place] HospitalComment on above:Performed By: #### BMP #### [facility] ([facility]) [address] [place] [address] VIRCO2 [Moles/Vol]27 mmol/EOwfifx43-24TryVmqoeiCleveland Clinic Foundation Comment on above:Performed By: #### BMP #### [facility] ([facility]) [address] [place] [address] VIRCreatinine [Mass/Vol]2.57 mg/dLHigh0.40-1.00ProCleveland Clinic Akron GeneralComment on above:Result Comment: METHOD TRACEABLE TO IDMS STANDARD Performed By: #### BMP #### [facility] ([facility]) [address] [place] [address] VIRGFR/1.73 sq M.predicted among non-blacks MDRD (S/P/Bld) [Vol rate/Area]19 mL/min/{1.73_m2}Low>=60ProCleveland Clinic Akron GeneralComment on above: Result Comment: Reported eGFR is based on the CKD-EPI 2020 equation that does not use a race coefficient.Performed By: #### BMP #### [facility] ([facility]) [address] [place] [address] VIRGlucose [Mass/Vol]151 mg/pSXjwf23-32QbhLuclav [place] HospitalComment on above:Performed By: #### BMP #### [facility] ([facility]) [address] [place] [address] VIRPotassium [Moles/Vol]4.3 mmol/LNormal3.5-5.0ProHighland District Hospital HospitalComment on above:Result Comment: R-Specimen moderately hemolyzed, results increasedPerformed By: #### BMP #### [facility] ([facility]) [address] [place] [address] VIRSodium [Moles/Vol]141 mmol/CYopstl040-685DanXdvmjq [place] HospitalComment on above:Performed By: #### BMP #### [facility] ([facility]) [address] [place] [address] VIRUrea nitrogen [Mass/Vol]50 mg/dLHigh5-27ProHighland District Hospital HospitalComment on above:Performed By: #### BMP #### [facility] ([facility]) [address] [place] [address] VIRAnion gap [Moles/Vol]9 mmol/LNormal5-15ProFreestone Medical CenterComment on above:Performed By: #### NORA, 3016-3, LIVR, BMP #### [facility] ([id number]) [address] [place] [address] #### HA1C, 37940-0 #### [facility] ([id number]) [address] [place], [place] [address]Denqver [Mass/Vol]9.3 mg/dLNormal8.5-10.5ProMedica Mattel [facility] Hospital UclaComment on above:Performed By: #### NORA, 3016-3, LIVR, BMP #### [facility] ([id number]) [address] [place] [address] #### PABLO 70793-6 #### [facility] ([id number]) [address] [place] [address], [address] [place], [place] [address]Emvrpfug [Moles/Vol]100 mmol/OAottqk73-007BxtWunmmaCleveland Clinic Children's Hospital for RehabilitationComment on above:Performed By: #### NORA, 6-3, LIVR, BMP #### [facility] ([id number]) [address] [place] [address] #### PABLO 30517-2 #### [facility] ([id number]) [address] [place] [address], [address] [place], [place] [address]IW1 [Moles/Vol]27 mmol/JDhrwba60-13OmuTbbqbgFulton County Health Center Comment on above:Performed By: #### NORA, 6-3, LIVEva, BMP #### [facility] ([id number]) [address] [place] [address] #### PABLO 36150-2 #### [facility] ([id number]) [address] [place] [address], [address] [place], [place] [address]Oxdkjhzvfq [Mass/Vol]2.79 mg/dLHigh0.40-1.00C[facility] Children's Hospital for RehabilitationComment on above:Result Comment: METHOD TRACEABLE TO IDMS STANDARD Performed By: #### NORA, 6-3, LIVR, BMP #### [facility] ([id number]) [address] [place] [address] #### PABLO, 59283-5 #### [facility] ([id number]) [address] [place] [address], [address] [place], [place] [address]GCG/1.73 sq M.predicted among non-blacks MDRD (S/P/Bld) [Vol rate/Area]17 mL/min/{1.73_m2}Low>=60ProFreestone Medical CenterComment on above: Result Comment: eGFR not reported due to non-numeric value for Creatinine. Reported eGFR is based on the CKD-EPI 2020 equation that does not use a race coefficient.Performed By: #### NORA 3, JOHNNY SERRANO #### [facility] ([id number]) [address] [place] [address] #### PABLO 15959-5 #### [facility] ([id number]) [address] [facility] [place], [place] [address]Rhhipyq [Mass/Vol]252 mg/yWPnjv53-31JirEzfnenCleveland Clinic Children's Hospital for Rehabilitation Comment on above:Performed By: #### NORA 3, JOHNNY SERRANO #### [facility] ([id number]) [address] [place] [address] #### PABLO 79656-3 #### [facility] ([id number]) [address] [facility] [place], [place] [address]Lbeyabqsf [Moles/Vol]3.8 mmol/LNormal3.5-5.0ProFreestone Medical CenterComment on above:Performed By: #### NORA 3, ZACH BMP #### [facility] ([id number]) [address] [place] [address] #### PABLO 91615-3 #### [facility] ([id number]) [address] [facility] [place], [place] [address]Dksyzd [Moles/Vol]136 mmol/GMmmfaj798-088KyvFtjhor [facility]remont HospitalComment on above:Performed By: #### NORA 3, LIVEva, BMP #### [facility] ([id number]) [address] [place] [address] #### PABLO 40086-6 #### [facility] ([id number]) [address] [facility] [facility] [place], [place] [address]Etpe nitrogen [Mass/Vol]51 mg/dLHigh5-27ProFreestone Medical CenterComment on above:Performed By: #### NORA, 3016-3, JOHNNY SERRANO #### [facility] ([id number]) [address] [place] [address], [place] [address] #### HA1C, 07790-1 #### [facility] ([id number]) [address] [place], [place] [address]QUYDPHP GLUCOSEon 92-72-5150Pcvmnpl [Mass/Vol]231 mg/nOMvwg33-61 [facility] CenterComment on above:Performed By: #### CBCA #### [facility] ([facility]) [address] [place] [address] VIRGlucose [Mass/Vol]122 mg/yBIzwz51-00YcsMiupplPremier Health Upper Valley Medical CenterComment on above:Performed By: #### NORA #### [facility] ([facility]) [address] [place] [address] VIRBasic Metabolic Panelon 94-23-0281Hebxy gap [Moles/Vol]11 mmol/L5 - 15 mmol/LProMedica Health SystemCalcium [Mass/Vol]9.3 mg/dL8.5 - 10.5 mg/dLProRiverview Regional Medical Center Health SystemChloride [Moles/Vol]103 mmol/L98 - 109 mmol/L Mans[facility] Hospitaledic Health SystemCO2 [Moles/Vol]27 mmol/L22 - 32 mmol/LProMedica Health SystemCreatinine [Mass/Vol]2.57 mg/dLHigh0.40 - 1.00 mg/dLProMemorial Health Systemca Health SystemEGFR Non-Race Zlyyzlqiu72Qew- PINFProMedica Health SystemGlucose [Mass/Vol]151 mg/xUAxod02 - 99 mg/dLProRiverview Regional Medical Center Health SystemPotassium [Moles/Vol] 4.3 mmol/L3.5 - 5.0 mmol/LProMedica Health SystemSodium [Moles/Vol]141 mmol/L134 - 146 mmol/LProMedica Health SystemUrea nitrogen [Mass/Vol]50 mg/dLHigh5 - 27 mg/dLAdams County HospitalBedside Glucose *Place/Obtain serum glucose if >500 per glucometer.on 10-52-4173Ctluauj [Mass/Vol]231 mg/mXTaqk86 - 99 mg/dL [facility] HospitalInterpretation and review of laboratory resultsAbnormal [facility] HospitalGlucose [Mass/Vol]122 mg/nQQeot01 - 99 mg/dLAdams County HospitalInterpretation and review of laboratory results AbnormalTyler Memorial HospitalCBC WITH AUTO DIFFERENTIAL on 75-08-7936XRTKALKHI ABSOLUTE COUNT (10*3/UL) BY AUTOMATED COUNT0.0 10*3/uL Normal0.0-0.2PCleveland Clinic FoundationComment on above:Performed By: #### CBCA #### [facility] ([facility]) [address] [place] [address] VIRBASOPHILS RELATIVE PERCENT BY AUTOMATED COUNT0.3 %Normal [facility] Medical CenterComment on above:Performed By: #### CBCA #### [facility] ([facility]) [address] [place] [address] VIRCELLAVISION DIFFERENTIAL TYPEAUTOMATED DIFFERENTIALNoWexner Medical CenterComment on above:Performed By: #### CBCA #### [facility] ([facility]) [address] [place] [address] VIREosinophils (Bld) [#/Vol]0.1 10*3/uLNormal0.0-0.4Prem[facility] Medical CenterComment on above:Performed By: #### CBCA #### [facility] ([facility]) [address] [place] [address] VIREOSINOPHILS RELATIVE PERCENT BY AUTOMATED COUNT0.6 %Normal [facility] CenterComselect specialty hospital-[facility] on above:Performed By: #### CBCA #### [facility] ([facility]) [address] [place] [address] VIRErythrocyte distribution width (RBC) [Ratio]12.6 %Normal 11.5-15ProMedica Louisville HospitalComment on above:Performed By: #### CBCA #### [facility] ([facility]) [address] [place] [address] VIRHematocrit (Bld) [Volume fraction]34.6 %Yhm69-97UohTqccin Louisville HospitalComment on above:Performed By: #### CBCA #### [facility] ([facility]) [address] [place] [address] VIRHemoglobin (Bld) [Mass/Vol]11.8 g/jYGidslg89.7-15.5ProMedica Louisville HospitalComment on above:Performed By: #### CBCA #### [facility] ([facility]) [address] [place] [address] VIRLYMPHOCYTES ABSOLUTE COUNT (10*3/UL) BY AUTOMATED COUNT0.8 10*3/uLLow1.0-3.5ProMedLima City Hospital HospitalComment on above:Performed By: #### CBCA #### [facility] ([facility]) [address] [place] [address] VIRLYMPHOCYTES RELATIVE PERCENT BY AUTOMATED COUNT6.8 %Normal [facility] [place] HospitalComment on above:Performed By: #### CBCA #### [facility] ([facility]) [address] [place] [address] VIRMCH (RBC) [Entitic mass]32.5 fiOfvjil46-62IziKpdeik Paul HospitalComment on above:Performed By: #### CBCA #### [facility] ([facility]) [address] [place] [address] VIRMCHC (RBC) [Mass/Vol]34.0 g/eOAoczmf38-70RgcSrxcde Paul HospitalComment on above:Performed By: #### CBCA #### [facility] ([facility]) [address] [place] [address] VIRMCV (RBC) [Entitic vol]96 hFMvtvdk17-670DgpIpdhbo Louisville HospitalComment on above:Performed By: #### CBCA #### [facility] ([facility]) [address] [place] [address] VIRMONOCYTES ABSOLUTE COUNT (10*3/UL) BY AUTOMATED COUNT1.0 10*3/uLHigh0.0-0.9ProHighland District Hospital HospitalComment on above:Performed By: #### CBCA #### [facility] ([facility]) [address] [place] [address] VIRMONOCYTES RELATIVE PERCENT BY AUTOMATED COUNT7.7 %Normal [facility] HospitalComment on above:Performed By: #### CBCA #### [facility] ([facility]) [address] [place] [address] VIRNEUTROPHILS ABSOLUTE COUNT BY AUTOMATED COUNT10.5 10*3/uL High1.5-6.6Pro[facility] HospitalComment on above:Performed By: #### CBCA #### [facility] ([facility]) [address] [place] [address] VIRNEUTROPHILS RELATIVE PERCENT BY AUTOMATED COUNT84.6 %Normal [facility] HospitalComment on above:Performed By: #### CBCA #### [facility] ([facility]) [address] [place] [address] VIRPlatelet mean volume (Bld) [Entitic vol]9.1 fLNormal7-12 [facility] HospitalComment on above:Performed By: #### CBCA #### [facility] ([facility]) [address] [place] [address] VIRPlatelets (Bld) [#/Vol]204 10*3/hRAhnfex513-989YlwBzwvpl [place] HospitalComment on above:Performed By: #### CBCA #### [facility] ([facility]) [address] [place] [address] VIRRBC COUNT3.62 X10E12/LLow3.8-5.2[facility] Comment on above:Performed By: #### NORA #### [facility] ([facility]) [address] [place] [address] VIRWBC (Bld) [#/Vol]12.4 10*3/uLHigh4-11[facility] HospitalComment on above:Performed By: #### NORA #### [facility] HOSPITAL) [address] [place] [address] VIRBASOPHILS ABSOLUTE COUNT (10*3/UL) BY AUTOMATED COUNT0.0 10*3/uLNormal0.0-0.2PFulton County Health CenterComment on above:Performed By: #### NORA 3016-3, LIVR, BMP #### [facility] ([id number]) [address] [place], [place] [id number] #### PABLO [id number] #### [facility] ([id number]) [address] [place], [place] [address]RQACSRFXM RELATIVE PERCENT BY AUTOMATED COUNT0.3 %Normal [facility] for RehabilitationComment on above:Performed By: #### NORA 3016-3, LIVR, BMP #### [facility] ([id number]) [address] [place] [address] #### PABLO [id number] #### [facility] ([id number]) [address] [place], [place] [address]VJICYJIFNZX DIFFERENTIAL TYPEAUTOMATED DIFFERENTIALNormal [facility] for RehabilitationComment on above:Performed By: #### NORA, 6-3, LIVR, BMP #### [facility] ([id number]) [address] [place] [address] #### PABLO 38957-1 #### [facility] ([id number]) [address] [place] [address], [address] [place], [place] [address]Vohrsanshcx (Bld) [#/Vol]0.1 10*3/uLNormal0.0-0.4[facility] for RehabilitationComment on above:Performed By: #### NORA, 6-3, LIVR, BMP #### [facility] ([id number]) [address] [place] [address] #### PABLO [id number] #### [facility] ([id number]) [address] [place] [address], [address] [place], [place] [address]YFTKEDNXZQY RELATIVE PERCENT BY AUTOMATED COUNT1.1 %Normal ProMSutter Auburn Faith HospitalComment on above:Performed By: #### NORA, 63, LIVR, BMP #### [facility] ([id number]) [address] [place] [address] #### PABLO, 74482-0 #### [facility] ([id number]) [address] [place] [address], [facility] [address] [place], [place] [address]Csfmpiiygvb distribution width (RBC) [Ratio]12.9 %Wcrwat52.5-15 ProMSutter Auburn Faith HospitalComment on above:Performed By: #### NORA, 3015-3, LIVR, BMP #### [facility] ([id number]) [address] [place] [address] #### PABLO, 56154-4 #### [facility] ([id number]) [address] [place] [address], [address] [place], [place] [address]Yezsansogd (Bld) [Volume fraction]36.1 %Jmbcog17-75DtuQbmgxnFreestone Medical CenterComment on above:Performed By: #### NORA, 6-3, LIVR, BMP #### [facility] ([id number]) [address] [place] [address] #### PABLO 00340-6 #### [facility] ([id number]) [address], [address] [place], [place] [address]Uxdqrnshmc (Bld) [Mass/Vol]12.3 g/xPSdjiom21.7-15.5PFulton County Health CenterComment on above:Performed By: #### NORA, 3015-3, LIVR, BMP #### [facility] ([id number]) [address] [place] [address] #### PABLO 18696-2 #### [facility] ([id number]) [address] [place], [place] [address]NHLUQCMULCC ABSOLUTE COUNT (10*3/UL) BY AUTOMATED COUNT0.5 10*3/uLLow1.0-3.5PFulton County Health CenterComment on above:Performed By: #### NORA, 3015-3, LIVR, BMP #### [facility] ([id number]) [address] [place] [address] #### PABLO 39358-5 #### [facility] ([id number]) [address] [place], [place] [address]PICWQXEFVWG RELATIVE PERCENT BY AUTOMATED COUNT5.3 %Normal [facility] Hospital UclaComment on above:Performed By: #### NORA, 3015-3, LIVR, BMP #### [facility] ([id number]) [address] [place] [address] #### PABLO 27783-7 #### [facility] ([id number]) [address] [place], [place] [address]AMW (RBC) [Entitic mass]32.3 mcXcngma82-14VenCouofv [facility] Hospital UclaComment on above:Performed By: #### CBCIsrrael, 3016-3, LIVR, BMP #### [facility] ([id number]) [address] [place] [address] #### PABLO 42131-1 #### [facility] ([id number]) [address] [place], [place] [address]IXVV (RBC) [Mass/Vol]34.0 g/jOJmanrk58-25MgtMdskuyFreestone Medical CenterComment on above:Performed By: #### CBCA, 3016-3, LIVR, BMP #### [facility] ([id number]) [address] [place] [address] #### PABLO 33794-7 #### [facility] ([id number]) [address] [place], [place] [address]EOD (RBC) [Entitic vol]95 rSQuatuc95-965HagXgotzb Fremont HospitalComment on above:Performed By: #### CBCA, 3015-3, LIVR, BMP #### [facility] ([id number]) [address] [place] [address] #### PABLO 66992-9 #### [facility] ([id number]) [address], [address] [place], [place] [address]YSLLDMILT ABSOLUTE COUNT (10*3/UL) BY AUTOMATED COUNT0.5 10*3/uL Normal0.0-0.9[facility] for RehabilitationComment on above:Performed By: #### CBCA, 3016-3, LIVR, BMP #### [facility] ([id number]) [address] [place] [address] #### PABLO, 93687-3 #### [facility] ([id number]) [address], [address] [place], [place] [address]UPYSERMLJ RELATIVE PERCENT BY AUTOMATED COUNT5.8 %Normal ProMSutter Auburn Faith HospitalComment on above:Performed By: #### CBCIsrrael, 3016-3, LIVR, BMP #### [facility] ([id number]) [address] [place] [address] #### PABLO, 54385-8 #### [facility] ([id number]) [address], [address] [place], [place] [address]UJZWNYMTAHU ABSOLUTE COUNT BY AUTOMATED COUNT8.4 10*3/uLHigh 1.5-6.6ProMedica [facility]'S Hospital UclaComment on above:Performed By: #### NORA, 3016- 3, LIVR, BMP #### [facility] ([id number]) [address] [place] [address] #### PABLO 97891-6 #### [facility] ([id number]) [address], [address] [place], [place] [address]HLCOGBLEYQX RELATIVE PERCENT BY AUTOMATED COUNT87.5 %Normal [facility] for RehabilitationComselect specialty hospital-[facility] on above:Performed By: #### NORA, 3016-3, LIVR, BMP #### [facility] ([id number]) [address] [place] [address] #### PABLO 52711-2 #### [facility] ([id number]) [address], [address] [place], [place] [address]Biwraxvf mean volume (Bld) [Entitic vol]8.5 fLNormal7-12 [facility] for RehabilitationComment on above:Performed By: #### NORA, 3016-3, LIVR, BMP #### [facility] ([id number]) [address] [place] [address] #### PABLO, 14987-3 #### [facility] ([id number]) [address], [address] [place], [place] [address]Itdnvgvjy (Bld) [#/Vol]208 10*3/qBUxnvpu392-933DmzMsbtbwCleveland Clinic Children's Hospital for RehabilitationComment on above:Performed By: #### NORA, 6-3, LIVR, BMP #### [facility] ([id number]) [address] [place] [address] #### PABLO 31872-5 #### [facility] ([id number]) [address] [place] [address], [address] [place] [address]AAF COUNT3.80 X10E12/LNormal3.8-5.2PFulton County Health Center Comment on above:Performed By: #### NORA, 6-3, LIVR, BMP #### [facility] ([id number]) [address] [place] [address] #### PABLO 74117-0 #### [facility] ([id number]) [address] [place] [address], [address] [place] [address]SZP (Bld) [#/Vol]9.5 10*3/uLNormal4-11[facility] Comment on above:Performed By: #### NORA, 6-3, LIVR, BMP #### [facility] ([id number]) [address] [place] [address] #### PABLO, 11324-4 #### [facility] ([id number]) [address] [place] [address], [address] [place] [address]BTK auto differentialon 06-54-9782Kuuqcxdpf (Bld) [#/Vol]0 10*3/uL0.0 - 0.2 10*3/uLTriHealth SystemBasophils/100 WBC (Bld)0.3 % Adams County HospitalDifferential cell count method Nom (Bld)AUTOMATED DIFFERENTIALTriHealth SystemEosinophils (Bld) [#/Vol]0.1 10*3/uL0.0 - 0.4 10*3/uLProClermont County Hospital SystemEosinophils/100 WBC (Bld)0.6 %Ad[facility] County HospitalErythrocyte distribution width (RBC) [Ratio]12.6 %11.5 - 15 %Ad[facility] County HospitalHematocrit (Bld) [Volume fraction]34.6 %Low35 - 47 %[facility] HospitalHemoglobin (Bld) [Mass/Vol]11.8 g/dL11.7 - 15.5 g/dLAdams County HospitalInterpretation and review of laboratory resultsAbnormalAdams County HospitalLymphocytes (Bld) [#/Vol]0.8 10*3/uLLow1.0 - 3.5 10*3/uLAdams County HospitalLymphocytes/100 WBC (Bld)6.8 %[facility] HospitalMCH (RBC) [Entitic mass]32.5 pg27 - 34 [facility] CenterMCHC (RBC) [Mass/Vol]34 g/dL32 - 36 g/dLAdams County HospitalMCV (RBC) [Entitic vol]96 fL80 - 100 fL [facility] HospitalMonocytes (Bld) [#/Vol]1 10*3/uLHigh0.0 - 0.9 10*3/uL [facility] HospitalMonocytes/100 WBC (Bld)7.7 %[facility] Neutrophils (Bld) [#/Vol]10.5 10*3/uLHigh1.5 - 6.6 10*3/uLAdams County HospitalNeutrophils/100 WBC (Bld)84.6 %[facility] County HospitalPlatelet mean volume (Bld) [Entitic vol]9.1 fL7 - [address] [facility] [address] LouisPlatelets (Bld) [#/Vol]204 10*3/uLAdams County HospitalRBC (Bld) [#/Vol]3.62 10*6/uLLow [facility] County HospitalWBC LM Ql (Sput)12.4HighAdams County HospitalCK TOTALon 05-54-7609TBC37 U/CAppics13-784SfgIqqedwPremier Health Upper Valley Medical CenterComment on above: Performed By: #### CPK #### [facility] ([facility]) [address] [place] [address] VIRCK Totalon 93-71-1375QB [Catalytic activity/Vol]28 U/L24 - 170 U/LProMedica [facility]health [facility] Hospital SystemCT HIP RT WO CONTon 17-15-1215ZY HIP RT WO CONTCT HIP RT WO [...] by Andrea Jimenez MD on 11/26/2024 5:29 PMNormalProCleveland Clinic Akron GeneralCT Hip - right WO contraston 00-34-5400FSNXXRSQYCVvwZqashn Health System Radiology Study observation (narrative)Ad[facility] County HospitalCT Hip - right WO contrastOrdered By: Andrea Jimenez on 70-64-8799QghOcvhpxAdams County Hospital Work Phone: FERRITINon 53-04-4328Ekczaxbm [Mass/Vol]32 ng/mLNormal 11-307ProCleveland Clinic Akron GeneralComment on above:Performed By: #### FERR #### [facility] ([facility]) [address] [place] [address] VIRFOLATEon 92-17-2200VDMVS ACID>^25.0Normal>5.8ProCleveland Clinic Akron GeneralComment on above:Performed By: #### FOLI #### [facility] ([facility]) [address] [place] [address] VIRFerritinon 46-85-6999Vhtgonaz [Mass/Vol]32 ng/mL11 - 307 ng/mLTriHealth SystemFolateon 74-71-6658Bcxuze [Mass/Vol]ng/mL5.8 - PINF ng/mLProClermont County Hospital SystemIRON AND TIBCon 83-60-4692Miva [Mass/Vol]58 ug/dL Xqbdtj53-279ZieXvdglhPremier Health Upper Valley Medical CenterComment on above:Result Comment: R-Specimen moderately hemolyzed, results increasedPerformed By: #### CBCA #### [facility] ([facility]) [address] [place] [address] VIRIRON ATKZIVK821 ug/pEWvbcsr051-129UobTjhgquPremier Health Upper Valley Medical Center Comment on above:Performed By: #### CBCA #### [facility] ([facility]) [address] [place] [address] VIRIRON TTEISLYLLM60 % YLBFOOZRGWKmgbgf79-47VjxCiohrp Toledo HospitalComment on above:Performed By: #### CBCA #### [facility] ([facility]) [address] [place] [address] VIRTransferrin [Mass/Vol]260 mg/tMZnpinl518-447KcnYdjxaxPremier Health Upper Valley Medical CenterComment on above:Performed By: #### CBCA #### [facility] ([facility]) [address] [place] [address] VIRIron and TIBCon 82-88-9524Gwzm [Mass/Vol]58 ug/dL50 - 170 ug/dLAdams County HospitalIron binding capacity [Mass/Vol]364 ug/dL250 - 425 ug/dLAdams County HospitalIron saturation [Mass fraction]16ProSalem City HospitalTransferrin [Mass or moles/Vol]260 mg/dL168 - 336 mg/dLAdams County HospitalNo Panel Informationon 44-19-8486YagUcyymsAdams County HospitalInterpretation and review of laboratory resultsAbnormalAdams County HospitalInterpretation and review of laboratory resultsNormalAdams County HospitalProClermont County Hospital System [facility]ica [facility] SystemPREALBUMINon 35-35-5681Mwkeppawoj [Mass/Vol]29 mg/dL Zvazsn48-30RtqRqbzyf Louisville HospitalComment on above:Performed By: #### PAB #### [facility] ([facility]) [address] [place] [address] VIRPrealbumin [Mass/Vol]31 mg/dJZdujws38-27TdfWujqea Matt[facility] Hospital UclaComment on above:Performed By: #### CBCA, 3016-3, LIVR, BMP #### [facility] ([id number]) [address] [place] [address], [place] [address] #### HA1C, 20639-4 #### [facility] ([id number]) [address] [place], [place] [address]Tfkrjxenpjrc 38-06-7474Xsoultzjty [place] [Mass/Vol]29 mg/dL18 - 45 mg/dLProClermont County Hospital SystemRETICULOCYTESon 53-59-8006DMEHKWMFPUZT COUNT1.5 % Normal0.4-2.2Pro[facility] Bucyrus HospitalComment on above:Performed By: #### RETIC #### [facility] ([facility]) [address] [place] [address] VIRReticulocyteson 72-96-9470Uytjdotmtxbcar and review of laboratory resultsNormalProClermont County Hospital SystemReticulocytes/100 RBC (Bld)1.5 % 0.4 - 2.2 %ProMedicMayo Clinic Hospital SystemSODIUM, URINE, RANDOMon 10-30-9560Bazafy (U) [Moles/Vol]49 mmol/LNormalProHighland District Hospital HospitalComment on above:Performed By: #### CBCA #### [facility] ([facility]) [address] [place] [address] VIRSodium, urine, randomon 17-22-8198Tavdhc (U) [Moles/Vol]49 mmol/LProMedica Health SystemTYPE AND SCREENon 42-28-4226JBP_UOAIZHLjknxo ProMProMedica Memorial Hospital HospitalComment on above:Performed By: #### TSC #### [facility] ([facility]) [address] [place] [address] VIRRH_INTEPPositiveNormalProMedica Louisville HospitalComment on above:Performed By: #### TSC #### [facility] ([facility]) [address] [place] [address] VIRABO_INTEPANormalProMedica Berryville HospitalComment on above: Performed By: #### NORA, 3016-3, LIVR, BMP #### [facility] ([id number]) [address] [place] [address], [place] [address] #### PABLO 76257-3 #### [facility] ([id number]) [address] [facility] [facility] [place], [place] [address]RH_INTEPPositiveNormalLancaster Municipal Hospital HospitalComment on above:Performed By: #### NORA, 3016-3, LIVR, BMP #### [facility] ([id number]) [address] [place] [address], [place] [address] #### PABLO 94027-5 #### [facility] ([id number]) [address] [facility] [place], [place] [address]Knym and screen(includes indirect vikas)on 92-99-6387BGT and Rh group Nom (Bld)AProMedica Health SystemABO and Rh group Nom (Bld)Positive ProMMahnomen Health Center SystemBlood group antibody screen.cells I+II+III QlNegative ProMedica Health SystemProMedica Health SystemUREA RANDOM, URINEon 11-26-2024 URINE UREA NITROGEN,ORTCYH182 mg/dLNormalProHighland District Hospital HospitalComment on above:Performed By: #### NORA #### [facility] ([facility]) [address] [place] [address] VIRURINALYSISon 44-68-7941Vnqkuihcx Ql (U)NegativeNormal NegativeProMemorial Health Systemca Louisville HospitalComment on above:Order Comment: Urine received without preservative - delays in transport may affect results. Interpret with caution and clinical correlation is recommended.Performed By: #### CBCA #### [facility] ([facility]) [address] [place] [address] VIRBLOOD/HGBNegativeNormalNegativeSt. Elizabeth Hospital Hospital Comment on above:Order Comment: Urine received without preservative - delays in transport may affect results. Interpret with caution and clinical correlation is recommended.Performed By: #### CBCA #### [facility] ([facility]) [address] [place] [address] VIRColor (U)YellowNormalYellowProHighland District Hospital HospitalComment on above:Order Comment: Urine received without preservative - delays in transport may affect results. Interpret with caution and clinical correlation is recommended.Performed By: #### CBCA #### [facility] ([facility]) [address] [place] [address] VIRGlucose Ql (U)>1000 mg/dLAbnormalNegativeSt. Elizabeth Hospital HospitalComment on above:Order Comment: Urine received without preservative - delays in transport may affect results. Interpret with caution and clinical correlation is recommended.Performed By: #### CBCA #### [facility] ([facility]) [address] [place] [address] VIRKetones Ql (U)NegativeNormalNegativeProHighland District Hospital HospitalComment on above:Order Comment: Urine received without preservative - delays in transport may affect results. Interpret with caution and clinical correlation is recommended.Performed By: #### CBCA #### [facility] ([facility]) [address] [place] [address] VIRLeukocyte esterase Test strip Ql (U)SmallAbnormalNegative ProMedicChillicothe Hospital HospitalComment on above:Order Comment: Urine received without preservative - delays in transport may affect results. Interpret with caution and clinical correlation is recommended.Result Comment: High Concentrations of Glucose May Decrease the Reactivity of the Dipstick Leukocyte Test Pad.Performed By: #### CBCA #### [facility] ([facility]) [address] [place] [address] VIRNitrite Ql (U)NegativeNormalNegativeProCleveland Clinic Akron GeneralComment on above:Order Comment: Urine received without preservative - delays in transport may affect results. Interpret with caution and clinical correlation is recommended.Performed By: #### CBCA #### [facility] ([facility]) [address] [place] [address] VIRPH,URINE6.1Csjdji3.0-8.5ProMedica [facility] System Bucyrus HospitalComment on above:Order Comment: Urine received without preservative - delays in transport may affect results. Interpret with caution and clinical correlation is recommended.Performed By: #### CBCA #### [facility] ([facility]) [address] [place] [address] VIRProtein Ql (U)70 mg/dLAbnormalNegativePremier Health Upper Valley Medical CenterComselect specialty hospital[facility] on above:Order Comment: Urine received without preservative - delays in transport may affect results. Interpret with caution and clinical correlation is recommended.Performed By: #### CBCA #### [facility] ([facility]) [address] [place] [address] VIRR.B.CELLS<^4Ajzfte5-8AibMucmlwCleveland Clinic FoundationComselect specialty hospital[facility] on above:Order Comment: Urine received without preservative - delays in transport may affect results. Interpret with caution and clinical correlation is recommended.Performed By: #### CBCA #### [facility] ([facility]) [address] [place] [address] VIRSpecific gravity (U) [Rel density]1.900Uxsxuq8.003-1.035 [facility] Bucyrus HospitalComselect specialty hospital[facility] on above:Order Comment: Urine received without preservative - delays in transport may affect results. Interpret with caution and clinical correlation is recommended.Performed By: #### CBCA #### [facility] ([facility]) [address] [place] [address] VIRTURBIDITYHazyAbnormalClearProMedica Paul HospitalComselect specialty hospital[facility] on above:Order Comment: Urine received without preservative - delays in transport may affect results. Interpret with caution and clinical correlation is recommended.Performed By: #### CBCA #### [facility] ([facility]) [address] [place] [address] VIRUROBILINOGEN<1.1 eu/dLNormal<1.1 eu/dLProCleveland Clinic Akron GeneralComselect specialty hospital[facility] on above:Order Comment: Urine received without preservative - delays in transport may affect results. Interpret with caution and clinical correlation is recommended.Performed By: #### CBCA #### [facility] ([facility]) [address] [place] [address] VIRW.B.OOVCS9Xuee0-8SlcYfvx[address] [place], [place] [address]Comselect [facility] on above: Order Comment: Urine received without preservative - delays in transport may affect results. Interpret with caution and clinical correlation is recommended. Performed By: #### CBCA #### [facility] ([facility]) [address] [place] [address] VIRURINE CREATININE,RANDOMon 36-99-0774KFCBB CREATININE,RDM 72.60 mg/dLNoFort Hamilton HospitalComselect specialty hospital[facility] on above:Performed By: #### CBCA #### [facility] ([facility]) [address] [place] [address] VIRUrea random, urineon 22-64-1887Hgov nitrogen (24H U) [Mass/Vol]572 mg/dLVermont State HospitalMedica Health SystemUrinalysisOrdered By: Chris Rodriguez on 84-36-0126Emczemsop Ql (U)NegativeNegativeProMedica Health SystemColor (U)Yellow YellowProMedica Health SystemGlucose (U) [Mass/Vol]mg/dLAbnormalNegative Pro[facility] Health SystemHemoglobin Auto test strip Ql (U)NegativeNegative [facility] SystemInterpretation and review of laboratory resultsAbnormal [facility] Health SystemKetones (U) [Mass/Vol]NegativeNegativeProMedica Health SystemLeukocyte esterase Auto test strip Ql (U)SmallAbnormalNegativeAdams County HospitalNitrite Auto test strip Ql (U)NegativeNegativeAdams County HospitalpH (U)6.5 [pH]5.0 - 8.5PKettering Health PrebleProtein (U) [Mass/Vol]70 mg/dLAbnormalNegativeAdams County HospitalRBC Auto (Urine sed) [#/Area]0 - 5 [facility]rium Health SouthParkpecific gravity Refractometry automated (U) [Rel density]1.011.003 - 1.035Adams County HospitalTurbidity Ql (U)HazyAbnormal ClearAdams County HospitalUrobilinogen Qn (U){Kaushik'U}/dL<1.1 eu/dLAdams County HospitalWBC Auto (Urine sed) [#/Area]8High0 - 5PKettering Health Preble ProMedicCleveland Clinic Euclid HospitalProClermont County Hospital SystemUrine Creatinine,Rdmon 11-26-2024 Creatinine (U) [Mass/Vol]72.6 mg/dLAdams County HospitalVITAMIN B12on 82-29-1203Zlaukvliq (Vitamin B12) [Mass/Vol]275 pg/tYHpyird868-586MicYkjicf [place] HospitalComment on above:Performed By: #### B12 #### [facility] ([facility]) [address] [place] [address] VIRVITAMIN D 25 HYDROXYon 66-71-9145WQZHNZQ D 25 HYD TOT27.1 ng/mLLow30.0-100.0Premier Health Upper Valley Medical CenterComment on above:Order Comment: Vitamin D status 25 [place] Vitamin D Deficiency <20 ng/mLInsufficiency 20-29 ng/mLSufficiency 30-100 ng/mLToxicity >100 ng/mLNOTE: A pediatric reference range has not been established by the refuse collector supervisor of this kit. The [place] [employer] recommends a Vitamin D level of = or >20ng/mL in infants and children.Performed By: #### CBCA #### [facility] ([facility]) [address] [place] [address] VIRVITAMIN D 25 HYD TOT27.2 ng/mLLow30.0-100.0[facility] for RehabilitationComment on above:Order Comment: Vitamin D status 25 [place] Vitamin D Deficiency <20 ng/mLInsufficiency 20-29 ng/mLSufficiency 30-100 ng/mLToxicity >100 ng/mLNOTE: A pediatric reference range has not been established by the refuse collector supervisor of this kit. The [place] [employer] recommends a Vitamin D level of = or >20ng/mL in infants and children.Performed By: #### CBCA, 3016-3, LIVR, BMP #### [facility] ([id number]) [address] [place] [address], [place] [address] #### HA1C, 53502-8 #### [facility] ([id number]) [address], [address] [place], [place] [address]Dpyxjzv B12on [id number] (Vitamin B12) [Mass/Vol]275 pg/mL180 - 914 pg/mLAdams County HospitalVitamin D 25 hydroxyon - hydroxyvitamin D3 [Mass/Vol]27.1 ng/mLLow30.0 - 100.0 ng/mLTriHealth SystemMer[facility] SystemXR HIP RT 2-3 VIEWS W OR WO PELVISon [id number] HIP RT 2-3 VIEWS W OR WO [...] by Best Clark MD on 11/26/2024 1:09 PMNormalCleveland Clinic Children's Hospital for RehabilitationHEMOGLOBIN A1Con 22-40-2032Weunfqq [Mass/Vol]154 mg/dLNormalProFreestone Medical CenterComment on above:Performed By: #### HA1C #### [facility] ([facility]) [address] [place] [address] UPOGkA3f (Bld) [Mass fraction]7.0 %High4.4-5.6ProFreestone Medical CenterComment on above:Result Comment: ADA Guidelines Result HgbA1c Normal : less than 5.7 % Prediabetes : 5.7 % to 6.4 % Diabetes : > 6.4 % Use with caution in patients with abnormal hemoglobin variants as the half-life of red blood cells and in vivo glycation rates are affected.Performed By: #### HA1C #### [facility] ([facility]) 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 What would you like to do?NormalDel[facility] Hospital37on [id number]. Increase furosemide to 40 mg once daily. 2. Obtain BMP blood test in 1 month. 3. Follow-up in 6 months.NormalDelaware County HospitalOffice Visiton 26-88-1819Eypsxd-up [id number] Rivka Turner 1945 F Date Provider Department Center 07/21/2024 OBED MARCOS BH CARD [facility] Family History Problem Relation Age of Onset Breast cancer Mother Stroke Father Family Status - Relation Status Age at Mother Father Level of Service:63531 [place] OFFICE/OUTPATIENT ESTABLISHED MOD MDM 30 [facility] HospitalOr[facility] Onlyon 50-66-8643Tbmocn [id number] Janet Turnerjustin Arcos 1945 F Date Provider Department Center 07/18/2024 [id number], HISTORICAL BH CARD [facility] Family History Problem Relation Age of Onset Breast cancer Mother Stroke Father Family Status - Relation Status Age at Mother FatherNormalUniMount St. Mary HospitalAmbulatory Visit Summaryon 02-37-9925Rgtoqgxqot Visit SummaryAmbulatory Visit Summary RIVKA TURNER Irsrael :1945 Visit Date:07/12/2024 Ambulatory Visit Instructions Your [...] MUÑIZ When: Where: [address] [place] [address] Medications What How Much When Why Instructions New sulfamethoxazole-trimethoprim (Bactrim D.S. 800 mg-160 mg Tab) 1 Tablets By Mouth Every 12 hours Pain with urination Acute cystitis Duration: 3 Days drink plenty of fluids - Make sure you provideurine specimen prior to taking 1st dose Pickup at [facility]/pharmacy #[id number] Unchanged acetaminophen-hydrocodone (acetaminophen-hydrocodone 325 mg-5 mg oral [...] as needed for for sleep Pharmacy Information [facility]/pharmacy #[id number]: [address] [place], [place] [phone] Allergies Byetta Prefilled Pen (Nausea) Cleocin HCl [...] Vitamin D deficiency Historic (more content not included)...[facility] Ambulatory Visit SummaryAmbulatory Visit Summary RIVKA TURNER [...] BARRIOS, CLINTON MUÑIZ When: Where: [address] [place] [address] Medications What How Much When Why Instructions New sulfamethoxazole-trimethoprim (Bactrim D.S. 800 mg-160 mg Tab) 1 Tablets By Mouth Every 12 hours Pain with urination Acute cystitis Duration: 3 Days drink plenty of fluids - Make sure you provideurine specimen prior to taking 1st dose Pickup at [facility]/pharmacy #[id number] Unchanged acetaminophen-hydrocodone (acetaminophen-hydrocodone 325 mg-5 mg oral [...] as needed for for sleep Pharmacy Information [facility]/pharmacy #[id number]: [address] [place], [place] [phone] Allergies Byetta Prefilled Pen (Nausea) Cleocin HCl [...] Vitamin D deficiency Historic (more content not included)...[facility] Medicine Office/Clinic Noteon 56-27-4211Mfngac Medicine Office/Clinic NoteFamount [facility]/Clinic Note Chief Complaint UTI [...] created with voice recognition software. Occasional wrong-word or???dsybb-z-vlar??? substitutions may have occurred due to the [...] a urine sample and take it to [facility]. Review of Systems PHQ Score Initial Depression [...] urine specimen prior to taking 1st dose, [facility]/pharmacy #[id number], 162, cm, 07/12/24 14:22:00 EDT, Height/Length Dosing, 79.6, kg, 07/12/24 14:22:00 ED... UA with Cult Rflx Pain with urination (R30.9: Painful micturition, unspecified) Ordered: sulfamethoxazole-trimethoprim, 1 tab(s), Oral, q12hr for 3 day(s), 6 tab(s), Refill(s) 0, drink plenty of fluids - Make sure you provide urine specimen prior to taking 1st dose, [facility]/pharmacy #[id number], 162, cm, 07/12/24 14:22:00 EDT, Height/Length Dosing, 79.6, kg, 07/12/24 14:22:00 ED... Follow-up With When Contact Information JOHN BARRIOS, AMAODR, FAM [address] [place] [address] Additional Instructions: Patient Education Urinary Tract Infection, Adult, Wgwm-ff-Swed Problem List/Past Medical History Ongoing Bile reflux gastritis BMI 33.0-33.9,adult Bradycardia CAD (coronary artery disease) (more content not included)...[facility] CampusComment on above: Result Comment: Electronically Signed By: Vielka You\.br\Date and Time Signed: 07/12/24 15:17 EDTURINALYSISon 31-60-1183Xhodymwmm Ql (U)NegativeNormal NegativeCleveland Clinic Children's Hospital for RehabilitationComment on above:Performed By: #### UA #### [facility] ([address] [address] VIRBLOOD/HGBNegativeNormalNegativeCleveland Clinic Children's Hospital for Rehabilitation Comment on above:Performed By: #### UA #### [facility] ([address] [address] VIRColor (U)YellowNormalYellow, ColorlessCleveland Clinic Children's Hospital for RehabilitationComment on above:Performed By: #### UA #### [facility] ([address] [address] VIRGlucose Ql (U)250 mg/dLNormalNegative, 250 mg/dLProFreestone Medical CenterComment on above:Performed By: #### UA #### [facility] ([address] [address] VIRKetones Ql (U)NegativeNormalNegativeProFreestone Medical CenterComment on above:Performed By: #### UA #### [facility] ([address] [place] [address] VIRLeukocyte esterase Test strip Ql (U)TraceAbnormalNegative [facility] Hospital for RehabilitationComment on above:Performed By: #### UA #### [facility] ([address] [address] VIRMUCOUSPresentAbnormalNoneProMedOak Valley HospitalComment on above:Performed By: #### UA #### [facility] ([address] [place] [address] VIRNitrite Ql (U)NegativeNormalNegativeProFreestone Medical CenterComment on above:Performed By: #### UA #### [facility] ([address] [address] VIRPH,URINE6.5Nwlosa4.0-8.5POchsner Medical Centerica [facility] UclaComment on above:Performed By: #### UA #### [facility] ([address] [place] [address] VIRProtein Ql (U)100 mg/dLAbnormalNegativeProFreestone Medical CenterComment on above:Performed By: #### UA #### [facility] ([address] [address] VIRR.B.MCVTI9Zgfovz9-9GltNeybdf Fremont HospitalComment on above:Performed By: #### UA #### [facility] ([address] [place] [address] VIRSpecific gravity (U) [Rel density]1.712Ebqwpi9.003-1.035 [facility] for RehabilitationComment on above:Performed By: #### UA #### [facility] ([address] [address] VIRSQUAMOUS ZVTEAGDBOB59Utiu9-5IcrLfrcln [facility] Comment on above:Performed By: #### UA #### [facility] ([address] [place] [address] VIRTURBIDITYCloudyAbnormalClearCleveland Clinic Children's Hospital for Rehabilitation Comment on above:Performed By: #### UA #### [facility] ([address] [address] VIRUROBILINOGEN0.2 eu/dLNormal0.2 eu/dL, 1.0 eu/dLCleveland Clinic Children's Hospital for RehabilitationComment on above:Performed By: #### UA #### [facility] ([address] [address] VIRW.B.AWHXY22Ctwp9-8EzjSkenjxFulton County Health CenterComment on above:Performed By: #### UA #### [facility] ([address] [address] VIRURINE CULTUREon 80-90-9625Eyoyxegx identified Cx Nom (U) CULTURE RESULTS ESCHERICHIA [...] <=^16.0 F Trimethoprim + Sulfamethoxazole S <=^1.0 FSusceptibleCleveland Clinic Children's Hospital for Rehabilitation Comment on above:Performed By: #### UC #### [facility] ([facility]) [address] [place] [address] VIRBASIC METABOLIC PANLon 91-11-2719Venzc gap [Moles/Vol]10 mmol/LNormal5-15C[facility] Hospital for RehabilitationComment on above:Performed By: #### NORA 3015-3, LIVR, BMP #### [facility] ([id number]) [address] [place] [address] #### PABLO 21937-6 #### [facility] ([id number]) [address], [address] [place], [place] [address]Ntblfdl [Mass/Vol]9.2 mg/dLNormal8.5-10.5PFulton County Health CenterComment on above:Performed By: #### NORA 3015-3, LIVR, BMP #### [facility] ([id number]) [address] [place] [address] #### Karan SHAH31-1 #### [facility] ([id number]) [address], [address] [place], [place] [address]Ybwddhzy [Moles/Vol]102 mmol/WGvfhrc25-969SroEzvoqhFreestone Medical CenterComment on above:Performed By: #### NORA 3015-3, LIVR, BMP #### [facility] ([id number]) [address] [place] [address] ###Leroy SHAH 78202-0 #### [facility] ([id number]) [address], [address] [place], [place] [address]AX0 [Moles/Vol]25 mmol/OXweuic87-03NdxYwtvsaFulton County Health Center Comment on above:Performed By: #### NORA 3016-3, JOHNNY SERRANO #### [facility] ([id number]) [address] [place] [address] #### PABLO 75486-8 #### [facility] ([id number]) [address], [address] [place], [place] [address]Mcpfurlxoa [Mass/Vol]1.42 mg/dLHigh0.40-1.00C[facility] Hospital for RehabilitationComment on above:Result Comment: METHOD TRACEABLE TO IDMS STANDARD Performed By: #### NORA 3, JOHNNY SERRANO #### [facility] ([id number]) [address] [place] [address] #### PABLO 66431-6 #### [facility] ([id number]) [address] [facility] [facility] [place], [place] [address]HVQ/1.73 sq M.predicted among non-blacks MDRD (S/P/Bld) [Vol rate/Area]38 mL/min/{1.73_m2}Low>59ProFreestone Medical CenterComment on above: Result Comment: Reported eGFR is based on the CKD-EPI 2020 equation that does not use a race coefficient.Performed By: #### NORA 3, ZACH BMP #### [facility] ([id number]) [address] [place] [address] #### PABLO 05508-2 #### [facility] ([id number]) [address], [address] [place], [place] [address]Lngbgix [Mass/Vol]261 mg/tSPhhs73-52OamEybaojFreestone Medical Center Comment on above:Performed By: #### NORA 3015-3, LIVEva, BMP #### [facility] ([id number]) [address] [place] [address] #### PABLO 33787-1 #### [facility] ([id number]) [address] [place], [place] [address]Hbewkyvvo [Moles/Vol]3.7 mmol/LNormal3.5-5.0ProFreestone Medical CenterComment on above:Performed By: #### NORA 6-3, LIVR, BMP #### [facility] ([id number]) [address] [place] [address] #### PABLO 27100-5 #### [facility] ([id number]) [address] [place], [place] [address]Lmktjh [Moles/Vol]137 mmol/SCxhkoe718-865QgtCfowmj [facility]remont HospitalComment on above:Performed By: #### NORA 6-3, LIVR, BMP #### [facility] ([id number]) [address] [place] [address] ###Leroy SHAH 25508-3 #### [facility] ([id number]) [address] [place], [place] [address]Dqet nitrogen [Mass/Vol]28 mg/dLHigh5-27ProFreestone Medical CenterComment on above:Performed By: #### NORA 3016-3, LIVR, BMP #### [facility] ([id number]) [address] [place] [address] #### PABLO 31180-1 #### [facility] ([id number]) [address] [place], [place] [address]GNO AND AUTO DIFFon 16-64-6716CBKSNKKZ BASOPHIL0.1 X10E9/LNormal 0.0-0.2ProMedica [facility]'S Hospital UclaComment on above:Performed By: #### NORA 6- 3, LIVR, BMP #### [facility] ([id number]) [address] [place] [address] #### PABLO 22475-1 #### [facility] ([id number]) [address] [place] [address], [address] [place], [place] [address]DDIDIIWS NEUTROPHIL4.9 X10E9/LNormal1.5-6.6ProFreestone Medical CenterComment on above:Performed By: #### NORA, 3015-3, LIVR, BMP #### [facility] ([id number]) [address] [place] [address] #### PABLO 95572-8 #### [facility] ([id number]) [address] [place] [address], [address] [place] [address]Sbpuhgbvm/100 WBC (Bld)1.1 %[facility] Comment on above:Performed By: #### NORA, 3015-3, LIVR, BMP #### [facility] ([id number]) [address] [place] [address] #### PABLO 07099-0 #### [facility] ([id number]) [address] [place] [address], [address] [place], [place] [address]Bekiymkpeee (Bld) [#/Vol]0.3 10*3/uLNormal0.0-0.4[facility] for RehabilitationComment on above:Performed By: #### NORA, 3015-3, LIVR, BMP #### [facility] ([id number]) [address] [place] [address] #### PABLO 25878-6 #### [facility] ([id number]) [address] [place] [address], [address] [place], [place] [address]Wfmbagdwtnp/100 WBC (Bld)4.2 %[facility] Comment on above:Performed By: #### NORA, 3015-3, LIVR, BMP #### [facility] ([id number]) [address] [place] [address] #### PABLO 98518-1 #### [facility] ([id number]) [address], [address] [place], [place] [address]Vhdtxtxoqoy distribution width (RBC) [Ratio]13.1 %Normal 11.5-15.0C[facility] Hospital for RehabilitationComment on above:Performed By: #### NORA 6-3, LIVR, BMP #### [facility] ([id number]) [address] [place] [address] #### PABLO 88482-3 #### [facility] ([id number]) [address] [place], [place] [address]Nfuhvqelcb (Bld) [Volume fraction]36.8 %Nsfluh15-53DdgUdjywoFreestone Medical CenterComment on above:Performed By: #### NORA 6-3, LIVR, BMP #### [facility] ([id number]) [address] [place] [address] #### PABLO 89201-1 #### [facility] ([id number]) [address] [place], [place] [address]Rwxezatinl (Bld) [Mass/Vol]12.2 g/lRKyxdpk93.7-15.5PFulton County Health CenterComment on above:Performed By: #### NORA, 6-3, LIVR, BMP #### [facility] ([id number]) [address] [place] [address] #### PABLO 38677-6 #### [facility] ([id number]) [address] [place], [place] [address]Imdapgwwigy (Bld) [#/Vol]1.0 10*3/uLNormal1.0-3.5PFulton County Health CenterComment on above:Performed By: #### CBCIsrrael, 3016-3, LIVR, BMP #### [facility] ([id number]) [address] [place] [address] #### PABLO 84113-2 #### [facility] ([id number]) [address], [address] [place], [place] [address]Ppdulvpigla/100 WBC (Bld)14.0 %NormalCleveland Clinic Children's Hospital for Rehabilitation Comment on above:Performed By: #### CBCIsrrael, 3015-3, LIVR, BMP #### [facility] ([id number]) [address] [place] [address] #### PABLO 35223-7 #### [facility] ([id number]) [address], [address] [place], [place] [address]PRW (RBC) [Entitic mass]30.3 jaThdexw66-17XbeHpogxlFreestone Medical CenterComment on above:Performed By: #### CBCIsrrael, 3015-3, LIVR, BMP #### [facility] ([id number]) [address] [place] [address] #### PABLO 33785-8 #### [facility] ([id number]) [address], [address] [place], [place] [address]BCGY (RBC) [Mass/Vol]33.3 g/sUEmgfmh31-89ReaEjplxqFreestone Medical CenterComment on above:Performed By: #### CBCIsrrael, 3016-3, LIVR, BMP #### [facility] ([id number]) [address] [place] [address] #### PABLO 16401-6 #### [facility] ([id number]) [address], [address] [place], [place] [address]JCQ (RBC) [Entitic vol]91 wCFymufs44-495UqoGpvcjd Berryville HospitalComment on above:Performed By: #### NORA, 3015-3, LIVR, BMP #### [facility] ([id number]) [address] [place] [address] #### PABLO 07689-7 #### [facility] ([id number]) [address], [address] [place], [place] [address]Ihcztqvdt (Bld) [#/Vol]0.6 10*3/uLNormal0-0.9ProFreestone Medical CenterComment on above:Performed By: #### NORA, 3015-3, LIVR, BMP #### [facility] ([id number]) [address] [place] [address] #### PABLO 08597-0 #### [facility] ([id number]) [address], [address] [place], [place] [address]Sidpsdowa/100 WBC (Bld)9.2 %[facility] Comment on above:Performed By: #### NORA, 3015-3, LIVR, BMP #### [facility] ([id number]) [address] [place] [address]199 #### PABLO 07114-9 #### [facility] ([id number]) [address], [address] [place], [place] [address]Iiirmjruukd/100 WBC (Bld)71.5 %[facility] Comment on above:Performed By: #### NORA, 3015-3, LIVR, BMP #### [facility] ([id number]) [address] [place] [address]39[address] #### PABLO 20356-9 #### [facility] ([id number]) [address], [address] [place], [place] [address]Ylvqnzgh mean volume (Bld) [Entitic vol]9.6 fLNormal7-12 ProMSutter Auburn Faith HospitalComment on above:Performed By: #### NORA 3, LIVEva, BMP #### [facility] ([id number]) [address] [place] [address]912 #### PABLO 03448-7 #### [facility] ([id number]) [address] [place], [place] [address]Aieibotze (Bld) [#/Vol]241 10*3/vPOkbxrn252-584PfmPtfavr [facility] HospitalComment on above:Performed By: #### NORA 3, LIVEva, BMP #### [facility] ([id number]) [address] [place] [address]72 #### PABLO 75669-6 #### [facility] ([id number]) [address] [facility], [address] [place], [place] [address]XWT COUNT4.04 X10E12/LNormal3.80-5.20[facility] Comment on above:Performed By: #### NORA 3, LIVR, BMP #### [facility] ([id number]) [address] [place] [address]9587 #### PABLO 07157-2 #### [facility] ([id number]) [address] [place], [place] [address]JRV (Bld) [#/Vol]6.8 10*3/uLNormal4.0-11.0ProFreestone Medical CenterComment on above:Performed By: #### NORA, 3, LIVR, BMP #### [facility] ([id number]) [address] [place] [address] 28755 #### PABLO 20893-9 #### [facility] ([id number]) [address] [facility], [address] [place], [place] [address]IWI A1C (GLYCO-HGB)on 80-94-6561Cptiuqg [Mass/Vol]246 mg/dL NormalProFreestone Medical CenterComment on above:Performed By: #### NORA 6- 3, ZACH, BMP #### [facility] ([id number]) [address] [place] [address]42 #### PABLO 43545-1 #### [facility] ([id number]) [address] [facility], [address] [place], [place] [address]EkB9n (Bld) [Mass fraction]10.2 %High4.4-5.6ProFreestone Medical CenterComment on above:Result Comment: NOTE ADA Guidelines Result HgbA1c Normal : less than 5.7 % Prediabetes : 5.7 % to 6.4 % Diabetes : > 6.4 % Use with caution in patients with abnormal hemoglobin variants as the half-life of red blood cells and in vivo glycation rates are affected.Performed By: #### NORA 63, ZACH BMP #### [facility] ([id number]) [address] [place] [address] 34392 #### PABLO 77528-8 #### [facility] ([id number]) [facility] [facility], [address] [place], [place] [address]DAKHQ PANELon 34-66-6908Ixiikrh [Mass/Vol]3.2 g/dLNormal3.2-5.3 ProMSutter Auburn Faith HospitalComment on above:Performed By: #### NORA 3, LIVR, BMP #### [facility] ([id number]) [address] [place] [address]92 #### PABLO 18131-2 #### [facility] ([id number]) [address] [place] [address], [address] [place] [address]DNQ [Catalytic activity/Vol]62 U/HLywmbd40-081RbqDlayjkCleveland Clinic Children's Hospital for RehabilitationComment on above:Performed By: ###Leroy MELENDEZ 6-3, LIVR, BMP #### [facility] ([id number]) [address] [place] [address]271 #### PABLO 99232-7 #### [facility] ([id number]) [address] [place] [address], [address] [place], [place] [address]DPC [Catalytic activity/Vol]23 U/LNormal0-31PFulton County Health CenterComment on above:Performed By: #### NORA 6-3, LIVR, BMP #### [facility] ([id number]) [address] [place] [address] 42812 ###Leroy SHAH 95237-8 #### [facility] ([id number]) [address] [place] [address], [address] [place] [address]EIG [Catalytic activity/Vol]18 U/LNormal0-41[facility] for RehabilitationComment on above:Performed By: ###Leroy MELENDEZ 6-3, LIVR, BMP #### [facility] ([id number]) [address] [place] [address] 42002 #### PABLO 41904-7 #### [facility] ([id number]) [address] [place] [address], [address] [place], [place] [address]Znfqeprhn [Mass/Vol]0.9 mg/dLNormal0.3-1.2ProMedOak Valley HospitalComment on above:Performed By: ###Leroy MELENDEZ 6-3, LIVR, BMP #### [facility] ([id number]) [address] [place] [address] 34594 #### PABLO 58408-1 #### [facility] ([id number]) [address] [place] [address], [address] [place], [place] [address]Ilsckhbic.direct [Mass/Vol]0.1 mg/dLNormal0.0-0.4ProFreestone Medical CenterComment on above:Performed By: #### NORA, 3016-3, LIVR, BMP #### [facility] ([id number]) [address] [place] [address] 91558 #### PABLO 13162-1 #### [facility] ([id number]) [address] [place] [address], [address] [place], [place] [address]Kawzgqf [Mass/Vol]6.6 g/dLNormal6.0-8.0ProFreestone Medical CenterComment on above:Performed By: #### NORA 6-3, LIVR, BMP #### [facility] ([id number]) [address] [place] [address] 10538 #### PABLO 95550-7 #### [facility] ([id number]) [address] [place] [address], [address] [place], [place] [address]Noenx 1996 panelon [id number] [Mass/Vol]156 mg/dL Jeutdt004-343PnvWmjchpFreestone Medical CenterComment on above:Performed By: #### NORA, 6-3, LIVR, BMP #### [facility] ([id number]) [address] [place] [address] #### PABLO 91967-3 #### [facility] ([id number]) [address] [place] [address], [address] [place], [place] [address]Rloucyconel in HDL [Mass/Vol]59 mg/dLNormal>39ProFreestone Medical CenterComment on above:Result Comment: HDL <40 mg/dL - High Risk HDL > or = 40mg/dL- Desirable HDL >60 mg/dL - Negative Risk Performed By: #Juana MELENDEZ, 3016-3, LIVEva, BMP #### [facility] ([id number]) [address] [place] [address] ##Ant SHAH 96100-6 #### [facility] ([id number]) [address], [address] [place], [place] [address]Knhkcpcxbgb in LDL [Mass/Vol]66 mg/dLNormal<130ProFreestone Medical CenterComment on above:Result Comment: LDL <100 mg/dL - Desirable LDL >160 mg/dL - High Risk Performed By: #Juana MELENDEZ, 6-3, LIVR, BMP #### [facility] ([id number]) [address] [place] [address] ##Ant SHAH 71149-8 #### [facility] ([id number]) [address], [address] [place], [place] [address]Guueedorrrp in VLDL [Mass/Vol]31 mg/dLHigh0-30ProFreestone Medical CenterComment on above:Performed By: #Juana MELENDEZ 6-3, LIVR, BMP #### [facility] ([id number]) [address] [place] [address] ##Ant SHAH 17327-2 #### [facility] ([id number]) [address] [address] [place], [place] [address]WODRPRWAQRN:HDL2.6Yvyqfk2.0-5.0ProFreestone Medical CenterComment on above:Performed By: #Juana MELENDEZ 6-3, LIVR, BMP #### [facility] ([id number]) [address] [place] [address], [place] [address] #### PABLO 67324-7 #### [facility] ([id number]) [address] [facility], [address] [place], [place] [address]Kazxyptdemuu [Mass/Vol]156 mg/wEEaet72-323ViyCicejsFreestone Medical CenterComment on above:Performed By: #### NORA, 6-3, LIVR, BMP #### [facility] ([id number]) [address] [place] [address], [place] [address] #### PABLO 37214-3 #### [facility] ([id number]) [address] [facility], [address] [place], [place] [address]CKOWHONQEWSI - ALBUMIN:CREATININE URINE RATIOon 03-19-2024 ALB/CREAT JBEPH1120.3 mg/g creatHigh0.0-30.0ProFreestone Medical CenterComment on above:Performed By: #### SHAY #### [facility] ([id number]) [address], [address] [place], [place] [address]Mppmuzt DL <= 20 mg/L (U) [Mass/Vol]243.1 mg/dLHigh0.0-1.9 [facility] UclaComment on above:Performed By: ###Leroy DAY #### [facility] ([id number]) [address] [place] [address], [address] [place], [place] [address]YQOPD CREAT66.27 mg/dLNormalProFreestone Medical CenterComment on above:Performed By: #### SHAY #### [facility] ([id number]) [address], [address] [place], [place] [address]MRG Qnon 59-47-8460DEB1.19 uIU/mLNormal0.49-4.67ProFreestone Medical CenterComment on above:Performed By: #### NORA, 6-3, LIVR, BMP #### [facility] ([id number]) [address], [place] [address] #### HA1C, 21609-4 #### [facility] ([id number]) [address] [place], [place] [address]KOO CBC WITH AUTO DIFFon 42-59-6528BJDUEWNSZ ABSOLUTE YATP9SNCU HealthcareBasophils/100 WBC (Bld)0.4 %0.2 - 2.0 %NOMS HealthcareEosinophils/100 WBC (Bld)1.8 %0.9 - 7.0 %NOMS HealthcareErythrocyte distribution width (RBC) [Ratio]12.4 %11.0 - 15.0 %[facility]OMS HealthcareHematocrit (Bld) [Volume fraction]37.5 %36.0 - 48.0 %[facility] HealthcareHemoglobin (Bld) [Mass/Vol]12 g/dL12.0 - 16.0 g/dL NOMS HealthcareIMMATURE GRANULOCYTES ABS AUTO0.03NOMS HealthcareImmature granulocytes/100 WBC (Bld)0.3 %0.0 - 0.5 %NOM HealthcareInterpretation and review of laboratory resultsAbnormalNONJ HealthcareLYMPHOCYTES ABSOLUTE EEBF6Uid [facility]S HealthcareLymphocytes/100 WBC (Bld)11.2 %Low20.5 - 60.0 %[facility] CenterH (RBC) [Entitic mass]30.6 pg26.7 - 34.0 pgNOExcelsior Springs Medical CenterHC (RBC) [Mass/Vol]32 g/dL29.9 - 35.2 g/dLMissouri Delta Medical CenterV (RBC) [Entitic vol]95.7 fL81.0 - 99.0 fL NOMS HealthcareMONOCYTES ABSOLUTE AUTO0.7NOMS HealthcareMonocytes/100 WBC (Bld) 7.9 %1.7 - 12.0 %NOMS HealthcareNEUTROPHILS ABSOLUTE RIWM6CcpvEQHE Healthcare Neutrophils/100 WBC (Bld)78.4 %High43.0 - 75.0 %[facility] HealthcarePlatelet mean volume (Bld) [Entitic vol]10.6 fL9.5 - 13.5 fLNOSSM DePaul Health CenterTB EO #0.2NOMS HealthcareTBH [id number] HealthcareTBH RBC3.92LowNOMS HealthcareTBH RXR9ZKCJ HealthcareCLINISYNCNCOMANCHE COUNTY MEM[facility] HealthcareURINE CULTURE, ROUTINEon 78-27-2333Lrdgmwkp identified Cx Nom (U) Urine Culture, Routine NOMS HealthcareBacteria identified Cx Nom (U)No growthNOMS HealthcareBacteria identified Cx Nom (U)Performed at: CB - [facility] HealthcareBacteria identified Cx Nom (U)[address] [place], [place] [id number] Healthcare Bacteria identified Cx Nom (U)Scientist Engineer: Best Garcia PhD, Phone: [phone] Children's Psychiatric HospitalCLSaint Francis Hospital & Health ServicesMRI BRAIN WO W CONon 07-04-2022 MRI BRAIN [...] Electronically authenticated by: LISSETTE VILLALOBOS Date: 2022-07-04 09:08[facility] HospitalCREATININEon 60-45-8910Gcysgmbpze [Mass/Vol]1.87 mg/dL Critically high0.55-1.02St. Anthony'S HospitalComment on above:Performed By: #### UARMICR #### [facility] [address] [address] [address] Gasper RankinGFR-AF EHWUMLBG49 mL/min/1.37x6Ucvjttwwjn low>=60The [facility] HospitalComment on above:Performed By: #### UARMICR #### [facility] [address] [address] [address] Gasper RankinGFR-NON AF EXHEABGO57 mL/min/1.51r3Bzuvowfqgc low>=60The [facility]canum HospitalComment on above:Performed By: #### UARMICR #### [facility] [address] [place] [address] Dr. Gasper Dailey (CLEAN/CATCH) MICROSCOPIC IF INDICATEon 81-90-2073Zozllsfoa Ql (U)NegativeNormalNEGATIVESt. Anthony'S HospitalComment on above:Performed By: #### UARMICR #### [facility] [address] [place] [address] Dr. Gasper GarberClarity (U)CLEARNormalCLEARSt. Anthony'S HospitalComment on above: Performed By: #### UARMICR #### [facility] [address] [place] [address] Dr. Gasper Webster (U)LT. YELLOWNormalYELLOWSt. Anthony'S HospitalComment on above:Performed By: #### UARMICR #### [facility] [address] [place] [address] Dr. Gasper GarberGlucose Ql (U)NegativeNormalNEGATIVESt. Anthony'S HospitalComment on above:Performed By: #### UARMICR #### [facility] [address] [address] [address] Gasper GarberHemoglobin Ql (U)NegativeNormalNEGATIVEWadsworth-Rittman Hospital on above:Performed By: #### UARMICR #### [facility] [address] [place] [address] Dr. Gasper GarberKetones Ql (U)NegativeNormalNEGATIVESt. Anthony'S HospitalComment on above:Performed By: #### UARMICR #### [facility] [address] [place] [address] Dr. Gasper GarberLEUKOCYTESNegativeNormalNEGATIVEThe [facility] HospitalComment on above:Performed By: #### UARMICR #### [facility] [address] [place] [address] Dr. Gasper GarberNitrite Ql (U)NegativeNormalNEGATIVEThe [facility] HospitalComment on above:Performed By: #### UARMICR #### [facility] [address] [place] [address] Dr. Gasper GarberpH (U)6.5 [pH]Normal5-9The [facility] Memorial HospitalComment on above: Performed By: #### UARMICR #### [facility] [address] [place] [address] Dr. Gasper GarberSPEC GRAVITY1.461Gzdmnn3.005-<=1.025The [facility] HospitalComment on above:Performed By: #### UARMICR #### [facility] [address] [place] [address] Dr. Gasper Dailey PROTEINTRACENormalNEGATIVE/ TRACEThe [facility] HospitalComment on above:Performed By: #### UARMICR #### [facility] [address] [place] [address] Dr. Gasper Hensley MICRO INDNOT INDICATEDNoalThe [facility] HospitalComment on above:Performed By: #### UARMICR #### [facility] [address] [place] [address] Dr. Gasper Kernbilinogen Qn (U)0.2 {Kaushik'U}/dLNormal0.2 - 1.0The [facility] HospitalComment on above:Performed By: #### UARMICR #### [facility] [address] [place] [address] Dr. Gasper Trevino URINEon 15-64-9352SHFSNPE URINEIsolate 1 Enterococcus faecium >100,000 cfu/mL of [...] <=1 S F Nitrofurantoin <=16 S FNormalThe [facility] HospitalComment on above:Performed By: #### URCX #### [facility] [address] [place] [address] Dr. Gasper GarberMAGNESIUMon 31-34-7201Hdljbntzt [Mass/Vol]2.0 mg/dLNormal1.8-2.4 The [facility] HospitalComment on above:Performed By: #### TONI LESLIERO #### [facility] [address] [place] [address] Dr. Gasper Su AUTO DIFFon 94-66-3414QLNC #0.0 103/ulNormal0.0-0.1St. Anthony'S HospitalComment on above:Performed By: #### TONI LESLIERO #### [facility] [address] [place] [address] Dr. Gasper GarberBasophils/100 WBC (Bld)0.5 %Normal0.2-2.0[facility] Comment on above:Performed By: #### TONI LESLIERO #### [facility] [address] [place] [address] Dr. Gasper Bennett #0.2 103/ulNormal0.0-0.7The [facility] HospitalComment on above: Performed By: #### JOANNE LESLIEICRO #### [facility] [address] [place] [address] Dr. Gasper Rankinosinophils/100 WBC (Bld)1.8 %Normal0.9-7.0[facility] Comment on above:Performed By: #### JOANNE LESLIEICRO #### [facility] [address] [place] [address] Dr. Gasper Rankinrythrocyte distribution width (RBC) [Ratio]12.5 %Fwogge40.0-15.0 The [facility] HospitalComment on above:Performed By: #### TONI LESLIERO #### [facility] [address] [place] [address] Dr. Gasper GarberHematocrit (Bld) [Volume fraction]36.1 %Ftvtik55.0-48.0The [facility] Memorial HospitalComment on above:Performed By: #### ANUJ UMICRO #### [facility] [address] [place] [address] Dr. Gasper GarberHemoglobin (Bld) [Mass/Vol]11.8 g/dLCritically low12.0-16.0The [facility] HospitalComment on above:Performed By: #### ANUJ UMICRO #### [facility] [address] [place] [address] Dr. Gasper Moreira #0.02 10e3/ulNormal0.00-0.03The [facility] HospitalComment on above:Performed By: #### ANUJ UMICRO #### [facility] [address] [place] [address] Dr. Gasper Moreira %0.2 %Normal0.0-0.5The [facility] HospitalComment on above: Performed By: #### ANUJ UMICRO #### [facility] [address] [place] [address] Dr. Gasper Hagan #1.2 103/ulNormal1.2-3.8The [facility] HospitalComment on above:Performed By: #### ANUJ UMICRO #### [facility] [address] [place] [address] Dr. Gasper Snowmphocytes/100 WBC (Bld)14.2 %Critically low20.5-60.0The [facility] HospitalComment on above:Performed By: #### ANUJ UMICRO #### [facility] [address] [place] [address] Dr. Gasper GarberMANUAL DIFF REQNONormalThe [facility] HospitalComment on above: Performed By: #### TONI LESLIERO #### [facility] [address] [place] [address] Dr. Gasper Zayas (RBC) [Entitic mass]30.6 nyBwwhav29.7-34.0The [facility] HospitalComment on above:Performed By: #### TONI LESLIERO #### [facility] [address] [place] [address] Dr. Gasper GarberUNITED [facility] (RBC) [Mass/Vol]32.7 g/hZIweauh29.9-35.2The [facility]canum HospitalComment on above:Performed By: #### TONI LESLIERO #### [facility] [address] [place] [address] Dr. Gasper Zayas (RBC) [Entitic vol]93.8 xLCknwnw32.0-99.0The [facility] HospitalComment on above:Performed By: #### TONI LESLIERO #### [facility] [address] [place] [address] Dr. Gasper Suarez #1.0 103/ulCritically high0.3-0.8The [facility] Comment on above:Performed By: #### TONI LESLIERO #### [facility] [address] [place] [address] Dr. Gasper Laraocytes/100 WBC (Bld)12.3 %Critically high1.7-12.0The [facility] HospitalComment on above:Performed By: #### BERNIE LESLIE #### [facility] [address] [place] [address] Dr. Gasper Brannon #5.9 103/ulNormal1.4-6.5The [facility] HospitalComment on above:Performed By: #### TONI LESLIERO #### [facility] [address] [place] [address] Dr. Gasper Knowlesutrophils/100 WBC (Bld)71.0 %Vntgzc52.0-75.0The [facility] HospitalComment on above:Performed By: #### TONI LESLIERO #### [facility] [address] [place] [address] Dr. Gasper Andrelet mean volume (Bld) [Entitic vol]11.3 fLNormal9.5-13.5The [facility] HospitalComment on above:Performed By: #### TONI LESLIERO #### [facility] [address] [place] [address] Dr. Gasper GarberPLT237 103/wgZprols097-262Cfz [facility] HospitalComment on above: Performed By: #### TONI LESLIERO #### [facility] [address] [place] [address] Dr. Gasper GarberRBC3.85 106/ulCritically low4.20-5.40The [facility] HospitalComment on above:Performed By: #### TONI LESLIERO #### [facility] [address] [place] [address] Dr. Gasper GarberWBC8.4 103/ulNormal4.0-11.0The [facility] HospitalComment on above: Performed By: #### ANUJ UMDINORAHRO #### [facility] [address] [place] [address] Dr. Gasper GarberMAGNESIUMon 33-26-9528Ffnlevwuj [Mass/Vol]2.0 mg/dLNormal1.8-2.4 The [facility] HospitalComment on above:Performed By: #### TONI LESLIERO #### [facility] [address] [place] [address] Dr. Gasper GarberPROF 14(COMP METB)on 47-07-1581Iyqwoam [Mass/Vol]3.4 g/dLNormal 3.4-5.0The [facility] HospitalComment on above:Performed By: #### TONI LESLIERO #### [facility] [address] [place] [address] Dr. Gasper GarberAlbumin/Globulin [Mass ratio]1.0 {ratio}NormalThe [facility] HospitalComment on above:Performed By: #### TONI LESLIERO #### [facility] [address] [address] [address] Gasper GómezP [Catalytic activity/Vol]70 U/FKtydzg66-786Vpt [facility] HospitalComment on above:Performed By: #### ANUJ UMICRO #### [facility] [address] [address] [address] Gasper GómezT [Catalytic activity/Vol]23 U/SLiltaz72-62Yus [facility] HospitalComment on above:Performed By: #### ANUJ UMICRO #### [facility] [address] [address] [address] Gasper Gunteron gap [Moles/Vol]12.2 mmol/LNormalThe [facility] Comment on above:Performed By: #### ANUJ UMICRO #### [facility] [address] [place] [address] Dr. Gasper GarberAST [Catalytic activity/Vol]13 U/LCritically lfc42-93Czj [facility] HospitalComment on above:Performed By: #### ANUJ UMICRO #### [facility] [address] [address] [address] Gasper GarberBilirubin [Mass/Vol]0.6 mg/dLNormal0.2-1.0The [facility] Comment on above:Performed By: #### ANUJ UMICRO #### [facility] [address] [place] [address] Dr. Gasper GarberCalcium [Mass/Vol]9.6 mg/dLNormal8.5-10.1The [facility] Comment on above:Performed By: #### ANUJ UMICRO #### [facility] [address] [place] [address] Dr. Gasper GarberChloride [Moles/Vol]106 mmol/ENxylwf84-002Goy [facility] Comment on above:Performed By: #### ANUJ UMICRO #### [facility] [address] [place] [address] Dr. Gasper GarberCO2 [Moles/Vol]29.0 mmol/ACsrtuk70.0-32.0The [facility] Comment on above:Performed By: #### TONI LESLIERO #### [facility] [address] [place] [address] Dr. Gasper GarberCreatinine [Mass/Vol]1.46 mg/dLCritically high0.55-1.02The [facility] HospitalComment on above:Performed By: #### TONI LESLIERO #### [facility] [address] [place] [address] Dr. Gasper RankinGFR-AF RTEENAYV36 mL/min/1.06b1Rlhyszkmbq low>=60The [facility] HospitalComment on above:Performed By: #### TONI LESLIERO #### [facility] [address] [place] [address] Dr. Gasper RankinGFR-NON AF QQREOCSO72 mL/min/1.38b3Zqakxdzvcy low>=60The [facility] HospitalComment on above:Performed By: #### TONI LESLIERO #### [facility] [address] [place] [address] Dr. Gasper GarberGlobulin (S) [Mass/Vol]3.3 g/dLNormalThe [facility] HospitalComment on above:Performed By: #### TONI LESLIERO #### [facility] [address] [place] [address] Dr. Gasper GarbreGlucose [Mass/Vol]154 mg/dLCritically lccn69-812Rnp [facility] HospitalComment on above:Performed By: #### TONI LESLIERO #### [facility] [address] [place] [address] Dr. Gasper GarberPotassium [Moles/Vol]3.2 mmol/LCritically low3.5-5.1The [facility] HospitalComment on above:Performed By: #### TONI LESLIERO #### [facility] [address] [place] [address] Dr. Gasper GarberProtein [Mass/Vol]6.7 g/dLNormal6.4-8.2The [facility] Comment on above:Performed By: #### ERUR, UMICRO #### [facility] [address] [address] [address] Gasper Mccallumum [Moles/Vol]144 mmol/RQbiyoj717-209Tyo [facility] Comment on above:Performed By: #### ERUR UMICRO #### [facility] [address] [place] [address] Dr. Gasper Aguayo nitrogen [Mass/Vol]28.0 mg/dLCritically high7.0-18.0The [facility] HospitalComment on above:Performed By: #### ERUR UMICRO #### [facility] [address] [place] [address] Dr. Gasper Aguayo nitrogen/Creatinine [Mass ratio]19.2 mg/mgNormalThe [facility] HospitalComment on above:Performed By: #### ERURJOANNEICRO #### [facility] [address] [place] [address] Dr. Gasper Wilson 32-89-6556Zokdpebvdwj peptide B (Bld) [Mass/Vol]1231.0 pg/mLCritically high<=900.0The [facility] HospitalComment on above:Performed By: #### LACT #### [facility] [address] [place] [address] Dr. Gasper Peters SEKOU ADMITon 09-49-3462QE [Catalytic activity/Vol]30 U/L Bvdszy00-008Kal [facility] HospitalComment on above:Performed By: #### LACT #### [facility] [address] [place] [address] Dr. Gasper Amato.MB [Mass/Vol]0.54 ng/mLNormal<=3.60The [facility] Comment on above:Performed By: #### LACT #### [facility] [address] [place] [address] Dr. Gasper JoelOP9.8 pg/mLNormal4.0-51.3The [facility] HospitalComment on above:Result Comment: CUT-OFF POINTS HAVE BEEN ESTABLISHED BASED ON THE FOURTH UNIVERSAL DEFINITIONS OF MYOCARDIAL INFARCTION. THE UPPER REFERENCE LIMIT (URL) OF TROPONIN, DEFINED THE 99TH PERCENTILE OF cTnI DISTRIBUTION IN A REFERENCE POPULATION, HAS BEEN CONFIRMED THE DECISION THRESHOLD FOR [place] DIAGNOSIS.Performed By: #### LACT #### [facility] [address] [place] [address] Dr. Gasper Baker62 ng/mLNormal9-82St. [facility]'S HospitalComment on above: Performed By: #### LACT #### [facility] [address] [place] [address] Dr. Gasper Su AUTO DIFFon 66-23-9602GSQW #0.0 103/ulNormal0.0-0.1The [facility] HospitalComment on above:Performed By: #### UARMICR #### [facility] [address] [place] [address] Dr. Gasper GarberBasophils/100 WBC (Bld)0.4 %Normal0.2-2.0[facility] Comment on above:Performed By: #### UARMICR #### [facility] [address] [place] [address] Dr. Gasper Bennett #0.2 103/ulNormal0.0-0.7The [facility] HospitalComment on above: Performed By: #### UARMICR #### [facility] [address] [place] [address] Dr. Gasper Rankinosinophils/100 WBC (Bld)2.4 %Normal0.9-7.0[facility] Comment on above:Performed By: #### UARMICR #### [facility] [address] [place] [address] Dr. Gasper Rankinrythrocyte distribution width (RBC) [Ratio]12.7 %Vfghiv75.0-15.0 The [facility] HospitalComment on above:Performed By: #### UARMICR #### [facility] [address] [place] [address] Dr. Gasper GarberHematocrit (Bld) [Volume fraction]36.4 %Rsxdyu07.0-48.0The [facility] HospitalComment on above:Performed By: #### UARMICR #### [facility] [address] [place] [address] Dr. Gasper GarberHemoglobin (Bld) [Mass/Vol]11.7 g/dLCritically low12.0-16.0The [facility] HospitalComment on above:Performed By: #### UARMICR #### [facility] [address] [place] [address] Dr. Gasper Moreira #0.03 10e3/ulNormal0.00-0.03The [facility] HospitalComment on above:Performed By: #### UARMICR #### [facility] [address] [place] [address] Dr. Gasper Moreira %0.3 %Normal0.0-0.5The [facility] HospitalComment on above: Performed By: #### UARMICR #### [facility] [address] [place] [address] Dr. Gasper Hagan #1.9 103/ulNormal1.2-3.8The [facility] HospitalComment on above:Performed By: #### UARMICR #### [facility] [address] [place] [address] Dr. Gasper Westhocytes/100 WBC (Bld)20.2 %Critically low20.5-60.0The [facility] HospitalComment on above:Performed By: #### UARMICR #### [facility] [address] [place] [address] Dr. Gasper MunguiaUAL DIFF REQNONormalThe [facility] HospitalComment on above: Performed By: #### UARMICR #### [facility] [address] [place] [address] Dr. Gasper Zayas (RBC) [Entitic mass]30.8 isRvuuas22.7-34.0The [facility] HospitalComment on above:Performed By: #### UARMICR #### [facility] [address] [place] [address] Dr. Gasper Zayas (RBC) [Mass/Vol]32.1 g/wJXvgpki12.9-35.2The [facility] HospitalComment on above:Performed By: #### UARMICR #### [facility] [address] [place] [address] Dr. Gasper Scott (RBC) [Entitic vol]95.8 uEIhigoj02.0-99.0The [facility] HospitalComment on above:Performed By: #### UARMICR #### [facility] [address] [place] [address] Dr. Gasper Suarez #1.2 103/ulCritically high0.3-0.8The [facility] Comment on above:Performed By: #### UARMICR #### [facility] [address] [place] [address] Dr. Gasper Laraocytes/100 WBC (Bld)13.0 %Critically high1.7-12.0The [facility] HospitalComment on above:Performed By: #### UARMICR #### [facility] [address] [place] [address] Dr. Gasper Brannon #5.8 103/ulNormal1.4-6.5The [facility] HospitalComment on above:Performed By: #### UARMICR #### [facility] [address] [place] [address] Dr. Gasper Knowlesutrophils/100 WBC (Bld)63.7 %Aoqydf00.0-75.0The [facility] HospitalComment on above:Performed By: #### UARMICR #### [facility] [address] [place] [address] Dr. Gasper Andrelet mean volume (Bld) [Entitic vol]10.0 fLNormal9.5-13.5The [facility] HospitalComment on above:Performed By: #### UARMICR #### [facility] [address] [place] [address] Dr. Gasper GarberPLT251 103/rnIluett889-692Tuk [facility] HospitalComment on above: Performed By: #### UARMICR #### [facility] [address] [place] [address] Dr. Gasper GarberRBC3.80 106/ulCritically low4.20-5.40The [facility] HospitalComment on above:Performed By: #### UARMICR #### [facility] [address] [place] [address] Dr. Gasper GarberWBC9.2 103/ulNormal4.0-11.0The [facility] HospitalComment on above: Performed By: #### UARMICR #### [facility] [address] [place] [address] Dr. Gasper GarberBASO #0.0 103/ulNormal0.0-0.1The [facility] HospitalComment on above:Performed By: #### UARMICR #### [facility] [address] [place] [address] Dr. Gasper GarberBasophils/100 WBC (Bld)0.0 %Critically low0.2-2.0The [facility] HospitalComment on above:Performed By: #### UARMICR #### [facility] [address] [place] [address] Dr. Gasper Bennett #0.0 103/ulNormal0.0-0.7The [facility] HospitalComselect [facility] on above: Performed By: #### UARMICR #### [facility] [address] [place] [address] Dr. Gasper Rankinosinophils/100 WBC (Bld)0.0 %Critically low0.9-7.0The [facility] HospitalComment on above:Performed By: #### UARMICR #### [facility] [address] [place] [address] Dr. Gasper Rankinrythrocyte distribution width (RBC) [Ratio]12.1 %Rxjlii16.0-15.0 The [facility] HospitalComment on above:Performed By: #### UARMICR #### [facility] [address] [place] [address] Dr. Gasper GarberHematocrit (Bld) [Volume fraction]37.9 %Oddyiw48.0-48.0The [facility] HospitalComment on above:Performed By: #### UARMICR #### [facility] [address] [place] [address] Dr. Gasper GarberHemoglobin (Bld) [Mass/Vol]12.2 g/wCOrcuco16.0-16.0The [facility] HospitalComment on above:Performed By: #### UARMICR #### [facility] [address] [place] [address] Dr. Gasper Moreira #0.00 10e3/ulNormal0.00-0.03The [facility] HospitalComment on above:Performed By: #### UARMICR #### [facility] [address] [place] [address] Dr. Gasper Moreira %0.0 %Normal0.0-0.5The [facility] HospitalComment on above: Performed By: #### UARMICR #### [facility] [address] [place] [address] Dr. Gasper Hagan #1.3 103/ulNormal1.2-3.8The [facility] HospitalComment on above:Performed By: #### UARMICR #### [facility] [address] [place] [address] Dr. Gasper Westhocytes/100 WBC (Bld)18.6 %Critically low20.5-60.0The [facility] HospitalComment on above:Performed By: #### UARMICR #### [facility] [address] [place] [address] Dr. Gasper MunguiaUAL DIFF REQNONormalThe [facility] HospitalComment on above: Performed By: #### UARMICR #### [facility] [address] [place] [address] Dr. Gasper Nix (RBC) [Entitic mass]30.7 euChpibi13.7-34.0The [facility] HospitalComment on above:Performed By: #### UARMICR #### [facility] [address] [place] [address] Dr. Gasper ZayasHC (RBC) [Mass/Vol]32.2 g/oDIrudnu73.9-35.2The [facility] HospitalComment on above:Performed By: #### UARMICR #### [facility] [address] [place] [address] Dr. Gasper ZayasV (RBC) [Entitic vol]95.5 yMRgplgh96.0-99.0The [facility] HospitalComment on above:Performed By: #### UARMICR #### [facility] [address] [place] [address] Dr. Gasper Suarez #0.8 103/ulNormal0.3-0.8The [facility] HospitalComment on above:Performed By: #### UARMICR #### [facility] [address] [place] [address] Dr. Gasper Laraocytes/100 WBC (Bld)11.6 %Normal1.7-12.0The [facility] Comment on above:Performed By: #### UARMICR #### [facility] [address] [place] [address] Dr. Gasper Brannon #5.0 103/ulNormal1.4-6.5The [facility] HospitalComment on above:Performed By: #### UARMICR #### [facility] [address] [place] [address] Dr. Gasper Knowlesutrophils/100 WBC (Bld)69.8 %Kaeoau81.0-75.0The [facility] HospitalComment on above:Performed By: #### UARMICR #### [facility] [address] [place] [address] Dr. Gasper Andrelet mean volume (Bld) [Entitic vol]9.8 fLNormal9.5-13.5The [facility] HospitalComment on above:Performed By: #### UARMICR #### [facility] [address] [place] [address] Dr. Gasper GarberPLT258 103/dsYivkng428-887Lnt [facility] Hospitalment on above: Performed By: #### UARMICR #### [facility] [address] [address] [address] Gasper GarberRBC3.97 106/ulCritically low4.20-5.40The [facility] on above:Performed By: #### UARMICR #### [facility] [address] [address] [address] Gasper GarberWBC7.1 103/ulNormal4.0-11.0The [facility] HospitalComment on above: Performed By: #### UARMICR #### [facility] [address] [address] [address] aGsper GarberCT HEAD WO CONon [id number] HEAD WO CONEXAMINATION: CT HEAD WO CON, [...] Mild cervical spondylosis. Electronically authenticated by: SAI [email or web address] Date: 2022-05-14 00:20NormThe Christ HospitalCovid-19 PCR (CVDTBH)on [id number]-CoV-2 (COVID-19) RNA ANA LUISA+probe Ql (Unsp spec)Not detectedNormalNOT DETECTEDThe [facility] Comment on above:Result Comment: When diagnostic [...] for this test is supported by the [employer] Worker of Health and Human Service's declaration that [...] longer be used).Performed By: #### LACT #### [facility] [address] [address] [address] Gasper Purvis URINE PROFILEon 95-65-1644Eyvyjfbve Ql (U)NegativeNormal NEGATIVEThe [facility] HospitalComment on above:Performed By: #### ACETON #### [facility] [address] [address] [address] Gasper GarberClarity (U)CLEARNormalCLEARSt. Anthony'S HospitalComment on above: Performed By: #### ACETON #### [facility] [address] [place] [address] Dr. Gasper Webster (U)LT. YELLOWNormalYELLOWSt. Anthony'S HospitalComment on above:Performed By: #### ACETON #### [facility] [address] [address] [address] Gasper Celis micrscopic examination will be performed if indicated. NormalThe [facility] HospitalComment on above:Performed By: #### ACETON #### [facility] [address] [place] [address] Dr. Gasper GarberGlucose Ql (U)NegativeNormalNEGATIVESt. Anthony'S HospitalComment on above:Performed By: #### ACETON #### [facility] [address] [place] [address] Dr. Gasper GarberHemoglobin Ql (U)NegativeNormalNEGKettering Health Dayton Comment on above:Performed By: #### ACETON #### [facility] [address] [place] [address] Dr. Gasper GarberKetones Ql (U)NegativeNormalNEGATIVESt. Anthony'S HospitalComment on above:Performed By: #### ACETON #### [facility] [address] [place] [address] Dr. Gasper GarberLEUKOCYTESNegativeNormalNEGATIVESt. Anthony'S HospitalComment on above:Performed By: #### ACETON #### [facility] [address] [place] [address] Dr. Gasper GarberNitrite Ql (U)PositiveAbnormalNEGKettering Health Dayton Comment on above:Performed By: #### ACETON #### [facility] [address] [place] [address] Dr. Gasper GarberpH (U)7.0 [pH]Normal5-9St. Anthony'S HospitalComment on above: Performed By: #### ACETON #### [facility] [address] [place] [address] Dr. Gasper GarberSPEC GRAVITY<=1.953Yryywlno0.005-<=1.025The [facility] Comment on above:Performed By: #### ACETON #### [facility] [address] [place] [address] Dr. Gasper Dailey PROTEINNegativeNormalNEGATIVE/ TRACEThe [facility] Comment on above:Performed By: #### ACETON #### [facility] [address] [place] [address] Dr. Gasper Hensley MICRO INDINDICATEDNormalThe [facility] HospitalComment on above: Performed By: #### ACETON #### [facility] [address] [place] [address] Dr. Gasper Kernbilinogen Qn (U)0.2 {Kaushik'U}/dLNormal0.2 - 1.0The [facility] HospitalComment on above:Performed By: #### ACETON #### [facility] [address] [place] [address] Dr. Gasper GarberMAGNESIUMon [id number] [Mass/Vol]2.4 mg/dLNormal1.8-2.4 The [facility] HospitalComment on above:Performed By: #### TONI LESLIERO #### [facility] [address] [place] [address] Dr. Gasper GarberPROF 14(COMP METB)on [id number] [Mass/Vol]3.5 g/dLNormal 3.4-5.0The [facility] HospitalComment on above:Performed By: #### JOANNE LESLIEICRO #### [facility] [address] [place] [address] Dr. Gasper GarberAlbumin/Globulin [Mass ratio]1.0 {ratio}NormalThe [facility] HospitalComment on above:Performed By: #### ANUJ UMICRO #### [facility] [address] [place] [address] Dr. Gasper GómezP [Catalytic activity/Vol]82 U/YZrdztv97-958Gyk [facility] HospitalComment on above:Performed By: #### BERNIE LESLIE #### [facility] [address] [place] [address] Dr. Gasper GómezT [Catalytic activity/Vol]22 U/CJpjbcj98-06Vvh [facility] HospitalComment on above:Performed By: #### BERNIE LESLIE #### [facility] [address] [place] [address] Dr. Gasper Gunteron gap [Moles/Vol]11.1 mmol/LNormalThe [facility] Comment on above:Performed By: #### BERNIE LESLIE #### [facility] [address] [place] [address] Dr. Gasper GarberAST [Catalytic activity/Vol]14 U/LCritically gnr88-44Ucx [facility] HospitalComment on above:Performed By: #### BERNIE LESLIE #### [facility] [address] [place] [address] Dr. Gasper GarberBilirubin [Mass/Vol]0.5 mg/dLNormal0.2-1.0[facility] Comment on above:Performed By: #### BERNIE LESLIE #### [facility] [address] [place] [address] Dr. Gasper GarberCalcium [Mass/Vol]9.8 mg/dLNormal8.5-10.1[facility] Comment on above:Performed By: #### BERNIE LESLIE #### [facility] [address] [place] [address] Dr. Gasper GarberChloride [Moles/Vol]99 mmol/OGnaxvt37-685Uvj [facility] Comment on above:Performed By: #### BERNIE LESLIE #### [facility] [address] [place] [address] Dr. Gasper GarberCO2 [Moles/Vol]30.5 mmol/TJcteoi06.0-32.0[facility] Comment on above:Performed By: #### BERNIE LESLIE #### [facility] [address] [address] [address] Gasper GarberCreatinine [Mass/Vol]1.75 mg/dLCritically high0.55-1.02The [facility] HospitalComment on above:Performed By: #### ERUR, UMICRO #### [facility] [address] [address] [address] Jackman ChangEGFR-AF QSTURRXU15 mL/min/1.28d3Pohvgjyzbu low>=60The [facility] HospitalComment on above:Performed By: #### ERUR, UMICRO #### [facility] [address] [place] [address] Dr. Gasper RankinGFR-NON AF OCHPJRJG80 mL/min/1.55d6Riwpqragxa low>=60The [facility] HospitalComment on above:Performed By: #### ANUJ UMICRO #### [facility] [address] [place] [address] Dr. Gasper GarberGlobulin (S) [Mass/Vol]3.4 g/dLNormalThe [facility] HospitalComment on above:Performed By: #### ANUJ UMICRO #### [facility] [address] [place] [address] Dr. Gasper GarberGlucose [Mass/Vol]154 mg/dLCritically wjdk58-732Vgl [facility] on above:Performed By: #### ANUJ UMICRO #### [facility] [address] [place] [address] Dr. Gasper GarberPotassium [Moles/Vol]3.6 mmol/LNormal3.5-5.1The [facility] Comment on above:Performed By: #### ERUR, UMICRO #### [facility] [address] [place] [address] Dr. Gasper GarberProtein [Mass/Vol]6.9 g/dLNormal6.4-8.2The [facility] Comment on above:Performed By: #### ERUR, UMICRO #### [facility] [address] [place] [address] Dr. Gasper GarberSodium [Moles/Vol]137 mmol/ILgbsxh850-978Rnz [facility] Comment on above:Performed By: #### BERNIE LESLIE #### [facility] [address] [place] [address] Dr. Gasper Aguayo nitrogen [Mass/Vol]35.0 mg/dLCritically high7.0-18.0The [facility] HospitalComment on above:Performed By: #### TONI LESLIERO #### [facility] [address] [place] [address] Dr. Gasper Aguayo nitrogen/Creatinine [Mass ratio]20.0 mg/mgNormalThe [facility] HospitalComment on above:Performed By: #### BERNIE LESLIE #### [facility] [address] [place] [address] Dr. Gasper GarberAlbumin [Mass/Vol]3.7 g/dLNormal3.4-5.0The [facility] Comment on above:Performed By: #### LACT #### [facility] [address] [place] [address] Dr. Gasper GarberAlbumin/Globulin [Mass ratio]1.1 {ratio}NormalThe [facility] HospitalComment on above:Performed By: #### LACT #### [facility] [address] [place] [address] Dr. Gasper GómezP [Catalytic activity/Vol]84 U/QUkanmh57-055Fot [facility] HospitalComment on above:Performed By: #### LACT #### [facility] [address] [place] [address] Dr. Gasper Alamo [Catalytic activity/Vol]26 U/AHnmcqj20-09Dqu [facility] HospitalComment on above:Performed By: #### LACT #### [facility] [address] [place] [address] Dr. Gasper Danielle gap [Moles/Vol]8.5 mmol/LNormalThe [facility] HospitalComment on above:Performed By: #### LACT #### [facility] [address] [place] [address] Dr. Yilan ChangAST [Catalytic activity/Vol]16 U/LTbgwdf43-62Wef [facility] HospitalComment on above:Performed By: #### LACT #### [facility] [address] [place] [address] Dr. Gasper GarberBilirubin [Mass/Vol]0.4 mg/dLNormal0.2-1.0The [facility] Comment on above:Performed By: #### LACT #### [facility] [address] [place] [address] Dr. Gasper GarberCalcium [Mass/Vol]9.8 mg/dLNormal8.5-10.1The [facility] Comment on above:Performed By: #### LACT #### [facility] [address] [place] [address] Dr. Gasper GarberChloride [Moles/Vol]99 mmol/FIhylzs64-824Cxz [facility] Comment on above:Performed By: #### LACT #### [facility] [address] [place] [address] Dr. Gasper GarberCO2 [Moles/Vol]32.3 mmol/LCritically high21.0-32.0The [facility] HospitalComment on above:Performed By: #### LACT #### [facility] [address] [place] [address] Dr. Gasper GarberCreatinine [Mass/Vol]1.84 mg/dLCritically high0.55-1.02The [facility] HospitalComment on above:Performed By: #### LACT #### [facility] [address] [place] [address] Dr. Gasper RankinGFR-AF DVPYABTZ25 mL/min/1.07p8Jmeohoamcd low>=60The [facility] HospitalComment on above:Performed By: #### LACT #### [facility] [address] [place] [address] Dr. Gasper RankinGFR-NON AF GGIEBYLH27 mL/min/1.78r4Ihvgflkhxn low>=60The [facility] HospitalComment on above:Performed By: #### LACT #### [facility] [address] [place] [address] Dr. Gasper GarberGlobulin (S) [Mass/Vol]3.4 g/dLNormThe Christ HospitalComment on above:Performed By: #### LACT #### [facility] [address] [place] [address] Dr. Gasper GarberGlucose [Mass/Vol]180 mg/dLCritically gmqr49-048Neq [facility] HospitalComment on above:Performed By: #### LACT #### [facility] [address] [place] [address] Dr. Gasper GarberPotassium [Moles/Vol]3.8 mmol/LNormal3.5-5.1The [facility] Comment on above:Performed By: #### LACT #### [facility] [address] [place] [address] Dr. Gasper GarberProtein [Mass/Vol]7.1 g/dLNormal6.4-8.2The [facility] Comment on above:Performed By: #### LACT #### [facility] [address] [place] [address] Dr. Gasper GarberSodium [Moles/Vol]136 mmol/WRmiepz373-810Leu [facility] Comment on above:Performed By: #### LACT #### [facility] [address] [place] [address] Dr. Gasper GarberUrea nitrogen [Mass/Vol]35.0 mg/dLCritically high7.0-18.0The [facility] HospitalComment on above:Performed By: #### LACT #### [facility] [address] [place] [address] Dr. Gasper GarberUrea nitrogen/Creatinine [Mass ratio]19.0 mg/mgNormalThOhioHealth Nelsonville Health CenterComment on above:Performed By: #### LACT #### [facility] [address] [place] [address] Dr. Gasper GarberPROTIMEmarisela [id number] Coag (PPP) [Relative time]0.95 {INR} NormalThe [facility] HospitalComment on above:Performed By: #### URCX #### [facility] [address] [place] [address] Dr. Gasper Martino GUIDELINESSEE Lake[facility] Beachwood Medical CenterComment on above:Result Comment: DESIRED INR: 2.0 - 3.0 CONDITIONS NOT LISTED BELOW 2.5 - 3.5 FOR PROSTHETIC HEART VALVE REPLACEMENT 2.5 - 3.5 RECURRENT THROMBOSIS Performed By: #### URCX #### [facility] [address] [place] [address] Dr. Gasper Conway Coag (PPP) [Time]10.1 sNormal9.0-11.6The [facility] Comment on above:Performed By: #### URCX #### [facility] [address] [place] [address] Dr. Gasper Marino [id number] Coag (Bld) [Time]24.7 dOmiitb59.3-36.2St. [facility]'S HospitalComment on above:Performed By: #### BERNIE LESLIE #### [facility] [address] [place] [address] Dr. Gasper Peres MICROSCOPIC ONLYon [id number]I SEEN The [facility] HospitalComment on above:Performed By: #### UARMICR #### [facility] [address] [place] [address] Dr. Gasper Crook identified Cx Nom (U)INDICATEDSheltering Arms HospitalComment on above:Performed By: #### UARMICR #### [facility] [address] [place] [address] Dr. Gasper Hopkins SEENNormalNONE SEENSt. Anthony'S HospitalComselect [facility] on above:Performed By: #### UARMICR #### [facility] [address] [place] [address] Dr. Gasper Connolly LM Nom (Urine sed)NONE SEENNormalNONE SEENSt. Anthony'S HospitalComselect [facility] on above:Performed By: #### UARMICR #### [facility] [address] [place] [address] Dr. Jackman ChangEpithelial cells LM Ql (Urine sed)MANYAbnormalNONE SEEN /RAREThe [facility] HospitalComment on above:Performed By: #### UARMICR #### [facility] [address] [address] [address] Gasper GarberMUUMA SEENNormalNONE SEENRiverside Methodist Hospital on above:Performed By: #### UARMICR #### [facility] [address] [place] [address] Dr. Gasper GarberPzqabDSV4-4Xbgvou4-8Ndd [facility] HospitalComselect [facility] on above:Performed By: #### UARMICR #### [facility] [address] [address] [address] Gasper GarberWBC0-2AbnormalIZZY SEENSt. Anthony'S HospitalComselect [facility] on above: Performed By: #### UARMICR #### [facility] [address] [place] [address] Dr. Gasper GarberXR CHEST 1 Von [id number] CHEST 1 VEXAM: XR CHEST 1 V [...] acute cardiopulmonary process. Electronically authenticated by: SAI [facility] Date: 2022-05-14 00:19NoOhioHealth Van Wert HospitalXR LSPINE 2_3 VIEWSon [id number] LSPINE 2_3 VIEWSEXAMINATION: XR LSPINE 2_3 VIEWS HISTORY: Pain in thoracic spine COMPARISON: No relevant comparison available. FINDINGS: BONES: Rotatory dextroscoliosis centered at L1. Moderate spondylosis and facet osteoarthropathy DISC SPACES: Multilevel narrowing most significant at L1-L2 PARASPINOUS: Negative. No paraspinous abnormality is seen. OTHER: Extensive vascular calcifications IMPRESSION: Moderate degenerative changes with rotatory scoliosis Electronically authenticated by: CHRYSTAL LAUREANO Date: 2022-05-05 15:30Sheltering Arms HospitalGLYCOHEMOGLOBIN A1Con [id number] RECOMMENDATIONSEE BELOW NormalThe [facility] on above:Result Comment: ADA RECOMMENDED LIMIT 4.0 - 6.0 ADA THERAPEUTIC TARGET < 7.0 ACTION SUGGESTED > 7.0Performed By: #### BERNIE LESLIE #### [facility] [address] [place] [address] Dr. Gasper GarberGlucose [Mass/Vol]169 mg/dLNoOhioHealth Van Wert HospitalComment on above:Performed By: #### BERNIE LESLIE #### [facility] [address] [address] [address] Gasper GarberHbA1c (Bld) [Mass fraction]7.5 %Critically high4.5-6.2The [facility] on above:Performed By: #### BERNIE LESLIE #### [facility] [address] [place] [address] Dr. Gasper GarberNM GASTRIC EMPTYon [id number] GASTRIC EMPTYNUCLEAR MEDICINE GASTRIC EMPTYING SCAN HISTORY: [...] Electronically authenticated by: NASRIN CHIU Date: 2021-09-09 13:23NoOhioHealth Van Wert HospitalACETONE SERUMon [id number]ORJEIQqi [facility] HospitalComment on above:Performed By: #### ACETON #### [facility] [address] [place] [address] Dr. Gasper GarberCBC AUTO DIFFon [id number] #0.0 103/ulNormal0.0-0.1The [facility] on above:Performed By: #### UARMICR #### [facility] [address] [place] [address] Dr. Gasper GarberBasophils/100 WBC (Bld)0.5 %Normal0.2-2.0The [facility] Comment on above:Performed By: #### UARMICR #### [facility] [address] [place] [address] Dr. Gasper Bennett #0.2 103/ulNormal0.0-0.7The [facility] HospitalComment on above: Performed By: #### UARMICR #### [facility] [address] [place] [address] Dr. Gasper Rankinosinophils/100 WBC (Bld)1.9 %Normal0.9-7.0The [facility] Comment on above:Performed By: #### UARMICR #### [facility] [address] [place] [address] Dr. Gasper Rankinrythrocyte distribution width (RBC) [Ratio]12.8 %Gliqii26.0-15.0 The [facility] HospitalComment on above:Performed By: #### UARMICR #### [facility] [address] [place] [address] Dr. Gasper GarberHematocrit (Bld) [Volume fraction]36.2 %Yfulqn08.0-48.0The [facility] HospitalComment on above:Performed By: #### UARMICR #### [facility] [address] [place] [address] Dr. Gasper GarberHemoglobin (Bld) [Mass/Vol]11.4 g/dLCritically low12.0-16.0The [facility] HospitalComment on above:Performed By: #### UARMICR #### [facility] [address] [place] [address] Dr. Gasper Moreira #0.03 10e3/ulNormal0.00-0.03The [facility] HospitalComment on above:Performed By: #### UARMICR #### [facility] [address] [place] [address] Dr. Gasper Moreira %0.4 %Normal0.0-0.5The [facility] HospitalComment on above: Performed By: #### UARMICR #### [facility] [address] [place] [address] Dr. Gasper Hagan #1.3 103/ulNormal1.2-3.8The [facility] HospitalComment on above:Performed By: #### UARMICR #### [facility] [address] [place] [address] Dr. Gasper Westhocytes/100 WBC (Bld)15.2 %Critically low20.5-60.0The [facility] HospitalComment on above:Performed By: #### UARMICR #### [facility] [address] [place], [place] [address] Dr. Gasper Bardales DIFF REQNONormalThe [facility] Memorial HospitalComment on above: Performed By: #### UARMICR #### [facility] [address] [place] [address] Dr. Gasper Zayas (RBC) [Entitic mass]30.6 fdJedpqg30.7-34.0The [facility] HospitalComment on above:Performed By: #### UARMICR #### [facility] [address] [place] [address] Dr. Gasper Zayas (RBC) [Mass/Vol]31.5 g/xFBwnrtv17.9-35.2The [facility] HospitalComment on above:Performed By: #### UARMICR #### [facility] [address] [place] [address] Dr. Gasper Zayas (RBC) [Entitic vol]97.1 aNAartch54.0-99.0The [facility] HospitalComment on above:Performed By: #### UARMICR #### [facility] [address] [place] [address] Dr. Gasper Suarez #0.8 103/ulNormal0.3-0.8The [facility] HospitalComment on above:Performed By: #### UARMICR #### [facility] [address] [place] [address] Dr. Gasper GarberMonocytes/100 WBC (Bld)9.8 %Normal1.7-12.0The [facility] Comment on above:Performed By: #### UARMICR #### [facility] [address] [place] [address] Dr. Gasper KnowlesUT #6.1 103/ulNormal1.4-6.5The [facility] HospitalComment on above:Performed By: #### UARMICR #### [facility] [address] [place] [address] Dr. Gasper Knowlesutrophils/100 WBC (Bld)72.2 %Sjcdug72.0-75.0The [facility] HospitalComment on above:Performed By: #### UARMICR #### [facility] [address] [place] [address] Dr. Gasper GarberPlatelet mean volume (Bld) [Entitic vol]10.2 fLNormal9.5-13.5The [facility] HospitalComment on above:Performed By: #### UARMICR #### [facility] [address] [place] [address] Dr. Gasper GarberPLT249 103/hpGeseys020-224Pbb [facility] HospitalComment on above: Performed By: #### UARMICR #### [facility] [address] [place] [address] Dr. Gasper GarberRBC3.73 106/ulCritically low4.20-5.40The [facility] HospitalComment on above:Performed By: #### UARMICR #### [facility] [address] [place] [address] Dr. Gasper GarberWBC8.4 103/ulNormal4.0-11.0The [facility] Memorial HospitalComment on above: Performed By: #### UARMICR #### [facility] [address] [place] [address] Dr. Gasper Trevino URINEon 09-89-1921SSZEYYX URINECulture Observations: HEAVY GROWTH OF MIXED GENITAL KADEEM. NO POTENTIAL PATHOGENS SEEN.NormalTrumbull Regional Medical Center HospitalComment on above:Performed By: #### ACETON #### [facility] [address] [place] [address] Dr. Gasper Purvis URINE PROFILEon 81-62-5858Nhrahykqs Ql (U)SMALLAbnormal NEGATIVESt. Anthony'S HospitalComment on above:Performed By: #### ERUR, UMICRO #### [facility] [address] [address] [address] Gasper GarberClarity (U)CLOUDYAbnormalCLEARThe [facility] Memorial HospitalComment on above:Performed By: #### ERUR, UMICRO #### [facility] [address] [place] [address] Dr. Gasper Webster (U)YELLOWNormalYELLOWSt. Anthony'S HospitalComment on above: Performed By: #### ERUEva UMICRO #### [facility] [address] [place] [address] Dr. Gasper Celis micrscopic examination will be performed if indicated. NormalSt. Anthony'S HospitalComment on above:Performed By: #### ERUR, UMICRO #### [facility] [address] [place] [address] Dr. Gasper GarberGlucose Ql (U)NegativeNormalNEGATIVESt. Anthony'S HospitalComment on above:Performed By: #### ERUR, UMICRO #### [facility] [address] [place] [address] Dr. Gasper GarberHemoglobin Ql (U)NegativeNormalNEGATIVESt. Anthony'S Hospital Comment on above:Performed By: #### ERUR, UMICRO #### [facility] [address] [place] [address] Dr. Gasper GarberKetones Ql (U)NegativeNormalNEGATIVESt. Anthony'S HospitalComment on above:Performed By: #### ERUR, UMICRO #### [facility] [address] [place] [address] Dr. Gasper GarberLEUKOCYTESTRACEAbnormalNEGATIVESt. Anthony'S HospitalComment on above:Performed By: #### ANUJ UMICRO #### [facility] [address] [address] [address] Gasper Buck Ql (U)NegativeNormalNEGATIVEThe [facility] Memorial HospitalComment on above:Performed By: #### ANUJ UMICRO #### [facility] [address] [address] [address] Gasper Smith (U)5.5 [pH]Normal5-9The [facility] Memorial HospitalComment on above: Performed By: #### ANUJ UMICRO #### [facility] [address] [place] [address] Dr. Gasper GarberProtein (U) [Mass/Vol]100 mg/dLAbnormalNEGATIVE/ TRACEThe [facility] Memorial HospitalComment on above:Performed By: #### ANUJ UMICRO #### [facility] [address] [place] [address] Dr. Gasper Fleming GRAVITY>=1.284Luhrwsct1.005-<=1.025The [facility] Comment on above:Performed By: #### ANUJ UMICRO #### [facility] [address] [place] [address] Dr. Gasper Hensley MICRO INDINDICATEDNormalThe [facility] Memorial HospitalComment on above: Performed By: #### ANUJ UMICRO #### [facility] [address] [place] [address] Dr. Gasper Snider Qn (U)1.0 {Kaushik'U}/dLNormal0.2 - 1.0The [facility] Memorial HospitalComment on above:Performed By: #### ANUJ UMICRO #### [facility] [address] [place] [address] Dr. Gasper Nixon PANEL (PCR)on 47-08-9800Cxtgrczvnw F 40/41Not detectedNormal NOT DETECTEDThe [facility] Memorial HospitalComment on above:Performed By: #### ANUJ UMICRO #### [facility] [address] [place] [address] Dr. Gasper GarberAstrovirusNot detectedNormalNOT DETECTEDThe [facility] Comment on above:Performed By: #### ERUR, UMICRO #### [facility] [address] [address] [address] Gasper Bautista. Diff toxin A/BNot detectedNormalNOT DETECTEDThe [facility] Memorial HospitalComment on above:Performed By: #### ERUR, UMICRO #### [facility] [address] [address] [address] Gasper MendozapylobacterNot detectedNormalNOT DETECTEDThe [facility] Comment on above:Performed By: #### CANDER, UMICRO #### [facility] [address] [place] [address] Dr. Gasper LamyptosporidiumNot detectedNormalNOT DETECTEDThe [facility] Memorial HospitalComment on above:Performed By: #### ANUJ UMICRO #### [facility] [address] [place] [address] Dr. Gasper Suarez. CayetanensisNot detectedNormalNOT DETECTEDThe [facility] Memorial HospitalComment on above:Performed By: #### CANDER, UMICRO #### [facility] [address] [place] [address] Dr. Gasper Davila Coli U149Rgz ApplicableNormalNot ApplicableThe [facility] Memorial HospitalComment on above:Performed By: #### ANUJ, UMICRO #### [facility] [address] [address] [address] Gasper Davila histolyticaNot detectedNormalNOT DETECTEDThe [facility] Comment on above:Performed By: #### ERUR, UMICRO #### [facility] [address] [address] [address] Gasper RankinAECNot detectedNormalNOT DETECTEDThe [facility] HospitalComment on above:Performed By: #### ERUR, UMICRO #### [facility] [address] [address] [address] Gasper RankinIECNot detectedNormalNOT DETECTEDThe [facility] HospitalComment on above:Performed By: #### ANUJ UMICRO #### [facility] [address] [address] [address] Gasper RankinPECNot detectedNormalNOT DETECTEDThe [facility] HospitalComselect [facility] on above:Performed By: #### ANUJ UMICRO #### [facility] [address] [address] [address] Gasper RankinTECNot detectedNormalNOT DETECTEDThe [facility] HospitalComment on above:Performed By: #### ANUJ UMICRO #### [facility] [address] [place] [address] Dr. Gasper Clark LambliaNot detectedNormalNOT DETECTEDThe [facility] Comment on above:Performed By: #### ANUJ UMICRO #### [facility] [address] [place] [address] Dr. Gasper Rush CONTROLSCleveland Clinic Akron GeneralComment on above:Performed By: #### ANUJ UMICRO #### [facility] [address] [place] [address] Dr. Gasper Murphy [facility] HEADERGI PANEL [facility] Comment on above:Performed By: #### ANUJ UMICRO #### [facility] [address] [place] [address] Dr. Gasper Irving ECOLIGI PANEL DIARRHEAGENIC E.COLI / SHIGELLASheltering Arms HospitalComment on above:Performed By: #### ANUJ UMICRO #### [facility] [address] [place] [address] Dr. Gasper Irving INFOSEE [facility] Medical CenterComselect specialty hospital-[place] on above: Result Comment: EAEC- Enteroaggregative E. Coli EPEC- Enteropathogenic E. Coli ETEC- Enterotoxigenic E. Coli lt/st STEC- Shigella-like toxin-producing E. Coli stx1/stx2 EIEC- Shigella/Enteroinvasive E. ColiPerformed By: #### ANUJ UMICRO #### [facility] [address] [address] [address] Gasper Irving PARASITESGI PANEL PARASITESSheltering Arms Hospital Comment on above:Performed By: #### ANUJ UMICRO #### [facility] [address] [address] [address] Gasper Irving VIRUSGI PANEL VIRUSESSheltering Arms HospitalComment on above:Performed By: #### ANUJ UMICRO #### [facility] [address] [address] [address] Gasper Valenzuelarovirus GI/GIIDetectedAbnormalNOT DETECTEDSt. [facility]'S Hospital Comment on above:Performed By: #### ANUJ UMICRO #### [facility] [address] [place] [address] Dr. Gasper Bunn ShigelloidesNot detectedNormalNOT DETECTEDThe [facility] HospitalComment on above:Performed By: #### ANUJ UMICRO #### [facility] [address] [place] [address] Dr. Gasper GarberRotavirus ANot detectedNormalNOT DETECTEDSt. [facility]'S Hospital Comment on above:Performed By: #### ANUJ UMICRO #### [facility] [address] [place] [address] Dr. Gasper AlmonellaNot detectedNormalNOT DETECTEDSt. Anthony'S Hospital Comment on above:Performed By: #### ANUJ UMICRO #### [facility] [address] [place] [address] Dr. Gasper MalhotrapovirusNot detectedNormalNOT DETECTEDSt. [facility]'S Hospital Comment on above:Performed By: #### ANUJ UMICRO #### [facility] [address] [place] [address] Dr. Gasper GarberSTECNot detectedNormalNOT DETECTEDThe [facility] HospitalComment on above:Performed By: #### ANUJ UMICRO #### [facility] [address] [place] [address] Dr. Gasper GarberVibrioNot detectedNormalNOT DETECTEDThe [facility] HospitalComment on above:Performed By: #### ERUEva UMICRO #### [facility] [address] [place] [address] Dr. Gasper Brown CholeraNot detectedNormalNOT DETECTEDThe [facility] Comment on above:Performed By: #### ANUJ UMICRO #### [facility] [address] [place] [address] Dr. Gasper Wade. EnterocoliticaNot detectedNormalNOT DETECTEDThe [facility] HospitalComment on above:Performed By: #### ANUJ UMICRO #### [facility] [address] [place] [address] Dr. Gasper GarberLACTATE/LACTIC ACIDon [id number] [Moles/Vol]1.0 mmol/L Normal0.4-1.9The [facility] HospitalComment on above:Performed By: #### PT, PTT #### [facility] [address] [place] [address] Dr. Gasper GarberLIPASEon 39-67-4666Vehyrh [Catalytic activity/Vol]166.0 U/LNormal 73.0-393.0The [facility] HospitalComment on above:Performed By: #### UARMICR #### [facility] [address] [place] [address] Dr. Gasper GarberPROF 14(COMP METB)on 21-24-0912Tzhhkqw [Mass/Vol]3.7 g/dLNormal 3.4-5.0The [facility] HospitalComment on above:Performed By: #### UARMICR #### [facility] [address] [place] [address] Dr. Gasper GarberAlbumin/Globulin [Mass ratio]1.0 {ratio}NormalThe [facility] Memorial HospitalComment on above:Performed By: #### UARMICR #### [facility] [address] [place] [address] Dr. Gasper GarberALP [Catalytic activity/Vol]75 U/SVgbexl98-887Gam [facility] HospitalComment on above:Performed By: #### UARMICR #### [facility] [address] [address] [address] Gasper GómezT [Catalytic activity/Vol]44 U/JVcswkm02-92Cbh [facility] HospitalComment on above:Performed By: #### UARMICR #### [facility] [address] [address] [address] Gasper GarberAnion gap [Moles/Vol]15.3 mmol/LNormalSt. Anthony'S Hospital Comment on above:Performed By: #### UARMICR #### [facility] [address] [address] [address] Gasper GarberAST [Catalytic activity/Vol]27 U/BMaqlwv64-58Hvi [facility] HospitalComment on above:Performed By: #### UARMICR #### [facility] [address] [place] [address] Dr. Gasper GarberBilirubin [Mass/Vol]0.5 mg/dLNormal0.2-1.0The [facility] Comment on above:Performed By: #### UARMICR #### [facility] [address] [place] [address] Dr. Gasper GarberCalcium [Mass/Vol]9.7 mg/dLNormal8.5-10.1[facility] Comment on above:Performed By: #### UARMICR #### [facility] [address] [place] [address] Dr. Gasper GarberChloride [Moles/Vol]105 mmol/JIwyasq15-201Omr [facility] Comment on above:Performed By: #### UARMICR #### [facility] [address] [place] [address] Dr. Gasper GarberCO2 [Moles/Vol]24.0 mmol/RJtjwte32.0-32.0The [facility] Comment on above:Performed By: #### UARMICR #### [facility] [address] [place] [address] Dr. Gasper GarberCreatinine [Mass/Vol]2.20 mg/dLCritically high0.55-1.02The [facility] HospitalComment on above:Performed By: #### UARMICR #### [facility] [address] [address] [address] Gasper RankinGFR-AF HJGXCSNF22 mL/min/1.05u6Zutjuguiqu low>=60The [facility] HospitalComment on above:Performed By: #### UARMICR #### [facility] [address] [place] [address] Dr. Gasper RankinGFR-NON AF IFZDGNAI60 mL/min/1.82p7Rsoineeeeo low>=60The [facility] HospitalComment on above:Performed By: #### UARMICR #### [facility] [address] [place] [address] Dr. Gasper GarberGlobulin (S) [Mass/Vol]3.7 g/dLNormalThe [facility] HospitalComment on above:Performed By: #### UARMICR #### [facility] [address] [place] [address] Dr. Gasper GarberGlucose [Mass/Vol]280 mg/dLCritically vuif30-573QlkRiverside Methodist Hospital on above:Performed By: #### UARMICR #### [facility] [address] [place] [address] Dr. Gasper GarberPotassium [Moles/Vol]4.3 mmol/LNormal3.5-5.1[facility] Comment on above:Performed By: #### UARMICR #### [facility] [address] [place] [address] Dr. Gasper GarberProtein [Mass/Vol]7.4 g/dLNormal6.4-8.2[facility] Comment on above:Performed By: #### UARMICR #### [facility] [address] [place] [address] Dr. Gasper GarberSodium [Moles/Vol]140 mmol/KYmwwhy760-275Bhk [facility] Comment on above:Performed By: #### UARMICR #### [facility] [address] [place] [address] Dr. Gasper GarberUrea nitrogen [Mass/Vol]29.0 mg/dLCritically high7.0-18.0The [facility] HospitalComment on above:Performed By: #### UARMICR #### [facility] [address] [place] [address] Dr. Gasper Aguayo nitrogen/Creatinine [Mass ratio]13.2 mg/mgNoOhioHealth Van Wert HospitalComment on above:Performed By: #### UARMICR #### [facility] [address] [place] [address] Dr. Gasper Ackerman 99-76-4284NTP1.923 uIU/mLNormal0.358-3.740The [facility] HospitalComment on above:Performed By: #### UARMICR #### [facility] [address] [place] [address] Dr. Gasper Peres MICROSCOPIC ONLYon [id number]udrwkAHRK SEEN The [facility] HospitalComselect [facility] on above:Performed By: #### TONI LESLIERO #### [facility] [address] [place] [address] Dr. Gasper Crook identified Cx Nom (U)INDICATEDSheltering Arms HospitalComment on above:Performed By: #### TONI LESLIERO #### [facility] [address] [place] [address] Dr. Gasper Hokpins SEENNormalNONE SEENThe [facility] HospitalComselect specialty [facility] on above:Performed By: #### TONI LESLIERO #### [facility] [address] [place] [address] Dr. Gasper Connolly LM Nom (Urine sed)NONE SEENNormalNONE SEENSt. Anthony'S HospitalComselect specialty hospital[facility] on above:Performed By: #### TONI LESLIERO #### [facility] [address] [place] [address] Dr. Jackman ChangEpithelial cells LM Ql (Urine sed)MANYAbnormalNONE SEEN /RAREThe [facility] HospitalComselect specialty hospital[facility] on above:Performed By: #### JOANNE LESLIEICRO #### [facility] [address] [address] [address] Gasper Benitez SEENNormalNONE SEENThe [facility] HospitalComment on above:Performed By: #### BERNIE LESLIE #### [facility] [address] [address] [address] Gasper GarberEmcxoPOE0-5Mljwuh4-0Eoe [facility] HospitalComment on above:Performed By: #### TONI LESLIERO #### [facility] [address] [address] [address] Gasper GarberWBC2-5AbnormalNONE SEENThe [facility] HospitalComment on above: Performed By: #### BERNIE LESLIE #### [facility] [address] [address] [address] Gasper GarberXR ABD FLAT UP_PA Omar [id number] ABD FLAT UP_PA CHEXAMINATION: XR ABD FLAT [...] Electronically authenticated by: CHRYSTAL LAUREANO Date: 2021-08-31 15:55NoBluffton Hospital AUTO DIFFon [id number] #0.1 103/ulNormal0.0-0.1The [facility] HospitalComment on above:Performed By: #### BERNIE LESLIE #### [facility] [address] [address] [address] Gasper GarberBasophils/100 WBC (Bld)0.6 %Normal0.2-2.0The [facility] Comment on above:Performed By: #### BERNIE LESLIE #### [facility] [address] [address] [address] Yilan ChangEO #0.0 103/ulNormal0.0-0.7The [facility] HospitalComment on above: Performed By: #### TONI LESLIERO #### [facility] [address] [place] [address] Dr. Gasper Rankinosinophils/100 WBC (Bld)0.5 %Critically low0.9-7.0The [facility] HospitalComment on above:Performed By: #### ANUJ UMICRO #### [facility] [address] [place] [address] Dr. Gasper Rankinrythrocyte distribution width (RBC) [Ratio]13.0 %Qalckz71.0-15.0 The [facility] Memorial HospitalComment on above:Performed By: #### TONI LESLIERO #### [facility] [address] [place] [address] Dr. Gasper GarberHematocrit (Bld) [Volume fraction]35.6 %Critically low36.0-48.0 The [facility] HospitalComment on above:Performed By: #### ANUJ UMICRO #### [facility] [address] [place] [address] Dr. Gasper GarberHemoglobin (Bld) [Mass/Vol]11.5 g/dLCritically low12.0-16.0The [facility] Hospitalment on above:Performed By: #### ANUJ UMICRO #### [facility] [address] [place] [address] Dr. Gasper Moreira #0.03 10e3/ulNormal0.00-0.03The [facility] HospitalComment on above:Performed By: #### JOANNE LESLIEICRO #### [facility] [address] [place] [address] Dr. Gasper Moreira %0.3 %Normal0.0-0.5The [facility] HospitalComment on above: Performed By: #### ANUJ UMICRO #### [facility] [address] [place] [address] Dr. Gasper Hagan #1.0 103/ulCritically low1.2-3.8The [facility] Comment on above:Performed By: #### ANUJ UMICRO #### [facility] [address] [place] [address] Dr. Gasper Snowmphocytes/100 WBC (Bld)10.8 %Critically low20.5-60.0The [facility] HospitalComment on above:Performed By: #### ANUJ UMICRO #### [facility] [address] [place] [address] Dr. Gasper MunguiaUAL DIFF REQNONormalThe [facility] HospitalComment on above: Performed By: #### ANUJ UMICRO #### [facility] [address] [place] [address] Dr. Gasper Zayas (RBC) [Entitic mass]31.2 tiPpqsho66.7-34.0The [facility] HospitalComment on above:Performed By: #### ANUJ UMICRO #### [facility] [address] [place] [address] Dr. Gasper Zayas (RBC) [Mass/Vol]32.3 g/dOXcxjis82.9-35.2The [facility] HospitalComment on above:Performed By: #### ANUJ UMICRO #### [facility] [address] [place] [address] Dr. Gasper Zayas (RBC) [Entitic vol]96.5 tPBwhuxu25.0-99.0The [facility] HospitalComment on above:Performed By: #### ANUJ UMICRO #### [facility] [address] [place] [address] Dr. Gasper Suarez #0.6 103/ulNormal0.3-0.8The [facility] HospitalComment on above:Performed By: #### ANUJ UMICRO #### [facility] [address] [place] [address] Dr. Gasper Laraocytes/100 WBC (Bld)7.2 %Normal1.7-12.0[facility] Comment on above:Performed By: #### ANUJ UMICRO #### [facility] [address] [place] [address] Dr. Gasper Brannon #7.1 103/ulCritically high1.4-6.5The [facility] Comment on above:Performed By: #### ANUJ UMICRO #### [facility] [address] [place] [address] Dr. Gasper Knowlesutrophils/100 WBC (Bld)80.6 %Critically high43.0-75.0The [facility] HospitalComment on above:Performed By: #### ANUJ UMICRO #### [facility] [address] [place] [address] Dr. Gasper GarberPlatelet mean volume (Bld) [Entitic vol]10.2 fLNormal9.5-13.5The [facility] HospitalComment on above:Performed By: #### ANUJ UMICRO #### [facility] [address] [place] [address] Dr. Gasper GarberPLT276 103/vvDdwdvq392-484Qcy [facility] HospitalComment on above: Performed By: #### ANUJ UMICRO #### [facility] [address] [place] [address] Dr. Gasper GarberRBC3.69 106/ulCritically low4.20-5.40The [facility] HospitalComment on above:Performed By: #### ANUJ UMICRO #### [facility] [address] [place] [address] Dr. Gasper GarberWBC8.8 103/ulNormal4.0-11.0The [facility] HospitalComment on above: Performed By: #### ANUJ UMICRO #### [facility] [address] [place] [address] Dr. Gasper GarberCT ABD/PELVIS WO CONon [id number] ABD/PELVIS WO CONEXAMINATION: CT ABD/PELVIS WO CON, [...] Electronically authenticated by: BELIA GAFFNEY Date: 2021-08-27 16:04[facility] URINE PROFILEon [id number] Ql (U)NegativeNormal NEGATIVERiverside Methodist Hospital on above:Performed By: #### ANUJ UMICRO #### [facility] [address] [address] [address] Gasper Mojica (U)CLEARNormalCLEARSt. Anthony'S HospitalComselect [facility] on above: Performed By: #### ANUJ UMICRO #### [facility] [address] [address] [address] Gasper Webster (U)LT. YELLOWNormalYELLOWThe [facility] on above:Performed By: #### ERUR, UMICRO #### [facility] [address] [address] [address] Gasper Celis micrscopic examination will be performed if indicated. NormalThe Arcanum HospitalComment on above:Performed By: #### TONI LESLIERO #### [facility] [address] [address] [address] Gasper GarberGlucose Ql (U)NegativeNormalNEGATIVETrumbull Regional Medical Center HospitalComment on above:Performed By: #### TONI LESLIERO #### [facility] [address] [place] [address] Dr. Gasper GarberHemoglobin Ql (U)NegativeNormalNEGATIVESt. Anthony'S Hospital Comment on above:Performed By: #### BERNIE LESLIE #### [facility] [address] [place] [address] Dr. Gasper Siddiquiones Ql (U)NegativeNormalNEGATIVESt. Anthony'S HospitalComment on above:Performed By: #### TONI LESLIERO #### [facility] [address] [place] [address] Dr. Gasper GarberLEUKOCYTESNegativeNormalNEGATIVESt. Anthony'S HospitalComment on above:Performed By: #### BERNIE LESLIE #### [facility] [address] [place] [address] Dr. Gasper GarberNitrite Ql (U)NegativeNormalNEGATIVESt. Anthony'S HospitalComment on above:Performed By: #### TONI LESLIERO #### [facility] [address] [place] [address] Dr. Gasper GarberpH (U)6.5 [pH]Normal5-9The [facility] HospitalComment on above: Performed By: #### TONI LESLIERO #### [facility] [address] [place] [address] Dr. Gasper GarberProtein (U) [Mass/Vol]100 mg/dLAbnormalNEGATIVE/ TRACEThe [facility]canum HospitalComment on above:Performed By: #### TONI LESLIERO #### [facility] [address] [place] [address] Dr. Gasper GarberSPEC GRAVITY1.129Nmpxqs0.005-<=1.025The [facility] HospitalComment on above:Performed By: #### BERNIE LESLIE #### [facility] [address] [place] [address] Dr. Gasper Hensley MICRO INDINDICATEDNormalThe [facility] HospitalComment on above: Performed By: #### TONI LESLIERO #### [facility] [address] [place] [address] Dr. Gasper Kernbilinogen Qn (U)0.2 {Kaushik'U}/dLNormal0.2 - 1.0The [facility] HospitalComment on above:Performed By: #### BERNIE LESLIE #### [facility] [address] [place] [address] Dr. Gasper GarberPROF CHEM 8 (BAS METB)on [id number] gap [Moles/Vol]14.7 mmol/LNormalThe [facility] HospitalComment on above:Performed By: #### PT, PTT #### [facility] [address] [place] [address] Dr. Gasper GarberCalcium [Mass/Vol]10.1 mg/dLNormal8.5-10.1[facility] Comment on above:Performed By: #### PT, PTT #### [facility] [address] [place] [address] Dr. Gasper GarberChloride [Moles/Vol]105 mmol/YQokwra97-774Dau [facility] Comment on above:Performed By: #### PT, PTT #### [facility] [address] [place] [address] Dr. Gasper GarberCO2 [Moles/Vol]24.0 mmol/ZIpsmjf18.0-32.0The [facility] Comment on above:Performed By: #### PT, PTT #### [facility] [address] [place] [address] Dr. Gasper GarberCreatinine [Mass/Vol]1.56 mg/dLCritically high0.55-1.02The [facility] HospitalComment on above:Performed By: #### PT, PTT #### [facility] [address] [address] [address] Gasper RankinGFR-AF DAJUMKEV80 mL/min/1.97i1Fdnfkdmcfy low>=60The [facility] HospitalComment on above:Performed By: #### PT, PTT #### [facility] [address] [address] [address] Gasper RankinGFR-NON AF BOJLGKKQ95 mL/min/1.69p3Yyppatxbhm low>=60The [facility] HospitalComment on above:Performed By: #### PT, PTT #### [facility] [address] [place] [address] Dr. Gasper GarberGlucose [Mass/Vol]209 mg/dLCritically sdmf46-124Akv [facility] HospitalComment on above:Performed By: #### PT, PTT #### [facility] [address] [place] [address] Dr. Gasper GarberPotassium [Moles/Vol]4.7 mmol/LNormal3.5-5.1The [facility] Comment on above:Performed By: #### PT, PTT #### [facility] [address] [place] [address] Dr. Gasper Griderdium [Moles/Vol]139 mmol/SVtwmkd373-217NmsSt. Anthony'S Hospital Comment on above:Performed By: #### PT, PTT #### [facility] [address] [place] [address] Dr. Gasper GarberUrea nitrogen [Mass/Vol]16.0 mg/dLNormal7.0-18.0The [facility] HospitalComment on above:Performed By: #### PT, PTT #### [facility] [address] [place] [address] Dr. Gasper Aguayo nitrogen/Creatinine [Mass ratio]10.3 mg/mgNormalThe [facility] HospitalComment on above:Performed By: #### PT, PTT #### [facility] [address] [place] [address] Dr. Gasper Peres MICROSCOPIC ONLYon [id number]R SEEN St. [facility] HospitalComselect [facility] on above:Performed By: #### ANUJ UMICRO #### [facility] [address] [place] [address] Dr. Gasper Crook identified Cx Nom (U)NOT INDICATEDNormalThOhioHealth Nelsonville Health CenterComselect specialty hospital[facility] on above:Performed By: #### ANUJ UMICRO #### [facility] [address] [place] [address] Dr. Gasper Hopkins SEENNormalNONE SEENSt. Anthony'S HospitalComselect [facility] on above:Performed By: #### ANUJ UMICRO #### [facility] [address] [place] [address] Dr. Gasper Connolly LM Nom (Urine sed)NONE SEENNormalNONE SEENSt. Anthony'S HospitalComselect [facility] on above:Performed By: #### ANUJ UMICRO #### [facility] [address] [place] [address] Dr. Jackman ChangEpithelial cells LM Ql (Urine sed)FEWAbnormalNONE SEEN /RAREThe [facility] HospitalComselect [facility] on above:Performed By: #### ANUJ UMICRO #### [facility] [address] [place] [address] Dr. Gasper Benitez SEENNormalNONE SEENSt. Anthony'S HospitalComselect [facility] on above:Performed By: #### ANUJ UMICRO #### [facility] [address] [place] [address] Dr. Gasper Holguin SEENAbnormal0-2St. [facility] HospitalComselect [facility] on above: Performed By: #### ANUJ UMICRO #### [facility] [address] [place] [address] Dr. Gasper Chatman0-2AbnormalNONE SEENRiverside Methodist Hospital on above: Performed By: #### ANUJ UMICRO #### [facility] [address] [place] [address] Dr. Gasper Trevino URINEon [id number] URINECulture Observations: Called to Chrystal Escamilla rn [...] <=10 S C Oxacillin >=4 R CNormalThe [facility] HospitalComment on above:Performed By: #### ACETON #### [facility] [address] [place] [address] Dr. Gasper Su AUTO DIFFon [id number] #0.0 103/ulNormal0.0-0.1St. Anthony'S HospitalComment on above:Performed By: #### BERNIE LESLIE #### [facility] [address] [place] [address] Dr. Gasper Medelsophils/100 WBC (Bld)0.4 %Normal0.2-2.0[facility] Comment on above:Performed By: #### BERNIE LESLIE #### [facility] [address] [place] [address] Dr. Gasper Bennett #0.1 103/ulNormal0.0-0.7The [facility] HospitalComment on above: Performed By: #### BERNIE LESLIE #### [facility] [address] [place] [address] Dr. Gasper Rankinosinophils/100 WBC (Bld)1.0 %Normal0.9-7.0[facility] Comment on above:Performed By: #### BERNIE LESLIE #### [facility] [address] [place] [address] Dr. Gasper Rankinrythrocyte distribution width (RBC) [Ratio]12.5 %Clzwtm11.0-15.0 The [facility] HospitalComment on above:Performed By: #### JOANNE LESLIEICRO #### [facility] [address] [place] [address] Dr. Gasper GarberHematocrit (Bld) [Volume fraction]35.3 %Critically low36.0-48.0 The [facility] HospitalComment on above:Performed By: #### ANUJ UMICRO #### [facility] [address] [place] [address] Dr. Gasper GarberHemoglobin (Bld) [Mass/Vol]11.7 g/dLCritically low12.0-16.0The [facility] HospitalComment on above:Performed By: #### ANUJ UMICRO #### [facility] [address] [place] [address] Dr. Gasper Moreira #0.03 10e3/ulNormal0.00-0.03The [facility] HospitalComment on above:Performed By: #### ANUJ UMICRO #### [facility] [address] [place] [address] Dr. Gasper Moreira %0.3 %Normal0.0-0.5The [facility] HospitalComment on above: Performed By: #### ANUJ UMICRO #### [facility] [address] [place] [address] Dr. Gasper Hagan #0.9 103/ulCritically low1.2-3.8The [facility] Comment on above:Performed By: #### ANUJ UMICRO #### [facility] [address] [place] [address] Dr. Gasper Westhocytes/100 WBC (Bld)9.6 %Critically low20.5-60.0The [facility] HospitalComment on above:Performed By: #### ANUJ UMICRO #### [facility] [address] [place] [address] Dr. Gasper Bardales DIFF REQNONormalThe [facility] HospitalComment on above: Performed By: #### ANUJ UMICRO #### [facility] [address] [place] [address] Dr. Gasper Zayas (RBC) [Entitic mass]30.8 dwJgncky94.7-34.0The [facility] HospitalComment on above:Performed By: #### ANUJ UMICRO #### [facility] [address] [place] [address] Dr. Gasper Zayas (RBC) [Mass/Vol]33.1 g/aETbqiuq28.9-35.2The [facility] HospitalComment on above:Performed By: #### ANUJ UMICRO #### [facility] [address] [place] [address] Dr. Gasper Zayas (RBC) [Entitic vol]92.9 pXDhuhdz38.0-99.0The [facility] HospitalComment on above:Performed By: #### ANUJ UMICRO #### [facility] [address] [place] [address] Dr. Gasper Suarez #0.9 103/ulCritically high0.3-0.8ThOhioHealth Nelsonville Health Center Comment on above:Performed By: #### ANUJ UMICRO #### [facility] [address] [place] [address] Dr. Gasper Laraocytes/100 WBC (Bld)9.3 %Normal1.7-12.0[facility] Comment on above:Performed By: #### ANUJ UMICRO #### [facility] [address] [place] [address] Dr. Gasper Brannon #7.7 103/ulCritically high1.4-6.5The [facility] Comment on above:Performed By: #### ANUJ UMICRO #### [facility] [address] [place] [address] Dr. Gasper Knowlesutrophils/100 WBC (Bld)79.4 %Critically high43.0-75.0The [facility] HospitalComment on above:Performed By: #### TONI LESLIERO #### [facility] [address] [place] [address] Dr. Gasper Paz mean volume (Bld) [Entitic vol]10.1 fLNormal9.5-13.5The [facility] HospitalComment on above:Performed By: #### TONI LESLIERO #### [facility] [address] [place] [address] Dr. Gasper GarberPLT302 103/agCgrxnn628-245Sts [facility] HospitalComment on above: Performed By: #### TONI LESLIERO #### [facility] [address] [place] [address] Dr. Gasper OlmosC3.80 106/ulCritically low4.20-5.40The [facility] HospitalComselect [facility] on above:Performed By: #### TONI LESLIERO #### [facility] [address] [place] [address] Dr. Gasper GarberWBC9.7 103/ulNormal4.0-11.0[facility] on above: Performed By: #### TONI LESLIERO #### [facility] [address] [place] [address] Dr. Gasper Purvis URINE PROFILEon 91-40-9194Cawwpukpe Ql (U)NegativeNormal NEGATIVESt. Anthony'S HospitalComselect [facility] hospital[facility] on above:Performed By: #### UARMICR #### [facility] [address] [place] [address] Dr. Gasper Mojica (U)CLEARNormalCLEARThe [facility] HospitalComselect [facility] on above: Performed By: #### UARMICR #### [facility] [address] [place] [address] Dr. Gasper Webster (U)LT. YELLOWNormalYELLOWSt. Anthony'S HospitalComment on above:Performed By: #### UARMICR #### [facility] [address] [place] [address] Dr. Yilan ChangERUAHDA micrscopic examination will be performed if indicated. NormalThe [facility] HospitalComment on above:Performed By: #### UARMICR #### [facility] [address] [place] [address] Dr. Gasper GarberGlucose Ql (U)NegativeNormalNEGATIVESt. Anthony'S HospitalComment on above:Performed By: #### UARMICR #### [facility] [address] [place] [address] Dr. Gasper GarberHemoglobin Ql (U)NegativeNormalNEGATIVESt. [facility]'S Hospital Comment on above:Performed By: #### UARMICR #### [facility] [address] [place] [address] Dr. Gasper GarberKetones Ql (U)NegativeNormalNEGATIVESt. Anthony'S HospitalComment on above:Performed By: #### UARMICR #### [facility] [address] [place] [address] Dr. Gasper GarberLEUKOCYTESMODERATEAbnormalNEGATIVESt. Anthony'S HospitalComment on above:Performed By: #### UARMICR #### [facility] [address] [place] [address] Dr. Gasper GarberNitrite Ql (U)NegativeNormalNEGATIVESt. Anthony'S HospitalComment on above:Performed By: #### UARMICR #### [facility] [address] [place] [address] Dr. Gasper GarberpH (U)7.0 [pH]Normal5-9St. [facility]'S HospitalComment on above: Performed By: #### UARMICR #### [facility] [address] [place] [address] Dr. Gasper GarberSPEC GRAVITY1.956Kchnya9.005-<=1.025St. [facility]'S HospitalComment on above:Performed By: #### UARMICR #### [facility] [address] [place] [address] Dr. Gasper GarberUA PROTEINNegativeNormalNEGATIVE/ TRACESt. Anthony'S Hospital Comment on above:Performed By: #### UARMICR #### [facility] [address] [place] [address] Dr. Gasper Hensley MICRO INDINDICATEDNormalThe [facility] HospitalComment on above: Performed By: #### UARMICR #### [facility] [address] [place] [address] Dr. Gasper Kernbilinogen Qn (U)0.2 {Kaushik'U}/dLNormal0.2 - 1.0The [facility] HospitalComment on above:Performed By: #### UARMICR #### [facility] [address] [place] [address] Dr. Gasper GarberPROF 14(COMP METB)on 97-10-4131Lvgqtwq [Mass/Vol]3.9 g/dLNormal 3.4-5.0The [facility] HospitalComment on above:Performed By: #### PT, PTT #### [facility] [address] [place] [address] Dr. Gasper GarberAlbumin/Globulin [Mass ratio]1.2 {ratio}NormalThe [facility] HospitalComment on above:Performed By: #### PT, PTT #### [facility] [address] [place] [address] Dr. Gasper Boss [Catalytic activity/Vol]70 U/ADnwfjk21-270Fex [facility] on above:Performed By: #### PT, PTT #### [facility] [address] [place] [address] Dr. Gasper Alamo [Catalytic activity/Vol]44 U/XXijjkn79-62Juh [facility] on above:Performed By: #### PT, PTT #### [facility] [address] [place] [address] Dr. Gasper Danielle gap [Moles/Vol]17.7 mmol/LNormalThe [facility] on above:Performed By: #### PT, PTT #### [facility] [address] [place] [address] Dr. Gasper Abreu [Catalytic activity/Vol]31 U/TAbguqs74-07Psj Ten HospitalComment on above:Performed By: #### PT, PTT #### [facility] [address] [address] [address] Gasper GarbreBilirubin [Mass/Vol]0.6 mg/dLNormal0.2-1.0[facility] Comment on above:Performed By: #### PT, PTT #### [facility] [address] [place] [address] Dr. Gasper GarberCalcium [Mass/Vol]9.9 mg/dLNormal8.5-10.1The [facility] Comment on above:Performed By: #### PT, PTT #### [facility] [address] [place] [address] Dr. Gasper GarberChloride [Moles/Vol]99 mmol/PIwzefs56-765XxjSt. Anthony'S Hospital Comment on above:Performed By: #### PT, PTT #### [facility] [address] [place] [address] Dr. Gasper GarberCO2 [Moles/Vol]24.4 mmol/PQzugpe29.0-32.0The [facility] Comment on above:Performed By: #### PT, PTT #### [facility] [address] [place] [address] Dr. Gasper GarberCreatinine [Mass/Vol]3.08 mg/dLCritically high0.55-1.02The [facility] HospitalComment on above:Performed By: #### PT, PTT #### [facility] [address] [place] [address] Dr. Gasper RankinGFR-AF SHTGUGPH79 mL/min/1.06n7Jjwigxlvqw low>=60The [facility] HospitalComment on above:Performed By: #### PT, PTT #### [facility] [address] [place] [address] Dr. Gasper RankinGFR-NON AF EEAKBPKU20 mL/min/1.66h4Evcqgrgdsi low>=60The [facility] HospitalComment on above:Performed By: #### PT, PTT #### [facility] [address] [place] [address] Dr. Gasper GarberGlobulin (S) [Mass/Vol]3.2 g/dLNormThe Christ HospitalComment on above:Performed By: #### PT, PTT #### [facility] [address] [place] [address] Dr. Gasper GarberGlucose [Mass/Vol]158 mg/dLCritically buhk17-077Blz [facility] HospitalComment on above:Performed By: #### PT, PTT #### [facility] [address] [place] [address] Dr. Gasper GarberPotassium [Moles/Vol]4.1 mmol/LNormal3.5-5.1The [facility] Comment on above:Performed By: #### PT, PTT #### [facility] [address] [place] [address] Dr. Gasper GarberProtein [Mass/Vol]7.1 g/dLNormal6.4-8.2The [facility] Comment on above:Performed By: #### PT, PTT #### [facility] [address] [place] [address] Dr. Gasper GarberSodium [Moles/Vol]137 mmol/QEvwuya338-870Hci [facility] Comment on above:Performed By: #### PT, PTT #### [facility] [address] [place] [address] Dr. Gasper GarberUrea nitrogen [Mass/Vol]48.0 mg/dLCritically high7.0-18.0The [facility] HospitalComment on above:Performed By: #### PT, PTT #### [facility] [address] [place] [address] Dr. Gasper GarberUrea nitrogen/Creatinine [Mass ratio]15.6 mg/mgNoOhioHealth Van Wert HospitalComment on above:Performed By: #### PT, PTT #### [facility] [address] [place] [address] Dr. Gasper Aguayo, HIGH SENSITIVITYon 68-50-7491MYXNOZ89.7 pg/mLNormal 4.0-51.3The [facility] HospitalComment on above:Result Comment: CUT-OFF POINTS HAVE BEEN ESTABLISHED BASED ON THE FOURTH UNIVERSAL DEFINITIONS OF MYOCARDIAL INFARCTION. THE UPPER REFERENCE LIMIT (URL) OF TROPONIN, DEFINED THE 99TH PERCENTILE OF cTnI DISTRIBUTION IN A REFERENCE POPULATION, HAS BEEN CONFIRMED THE DECISION THRESHOLD FOR VT DIAGNOSIS.Performed By: #### PT, PTT #### [facility] [address] [place] [address] Dr. Gasper MAURICIOon 39-32-4319UKUHVKFVNFRUPVxhwgykiPULD SEEN [facility] HospitalComselect [facility] on above:Performed By: #### UARMICR #### [facility] [address] [place] [address] Dr. Gasper Crook identified Cx Nom (U)INDICATEDSheltering Arms HospitalComselect [facility] on above:Performed By: #### UARMICR #### [facility] [address] [place] [address] Dr. Gasper Hopkins SEENNormalNONE SEENRiverside Methodist Hospital on above:Performed By: #### UARMICR #### [facility] [address] [place] [address] Dr. Gasper Lamystals LM Nom (Urine sed)NONE SEENNormalNONE SEENSt. Anthony'S HospitalComselect [facility] on above:Performed By: #### UARMICR #### [facility] [address] [place] [address] Dr. Jackman ChangEpithelial cells LM Ql (Urine sed)FEWAbnormalNONE SEEN /RAREThe [facility] on above:Performed By: #### UARMICR #### [facility] [address] [place] [address] Dr. Gasper TorresE SEENNormalNONE SEENSt. Anthony'S HospitalComselect [facility] on above:Performed By: #### UARMICR #### [facility] [address] [place] [address] Dr. Gasper LockettOgpoqTLL1-2Uejcoh3-5Usi [facility] on above:Performed By: #### UARMICR #### [facility] [address] [place] [address] Dr. Gasper VinsonPuybaHZB24-00QzudinnzIHDJ SEENThe [facility] HospitalComment on above: Performed By: #### UARMICR #### [facility] [address] [place] [address] Dr. Gasper GarberPROF CHEM 8 (BAS METB)on 99-50-4921Pavjo gap [Moles/Vol]13.5 mmol/LNormalThe [facility] HospitalComment on above:Performed By: #### PT, PTT #### [facility] [address] [place] [address] Dr. Gasper GarberCalcium [Mass/Vol]9.6 mg/dLNormal8.5-10.1The [facility] Comment on above:Performed By: #### PT, PTT #### [facility] [address] [place] [address] Dr. Gasper GarberChloride [Moles/Vol]102 mmol/YJfsqgc40-465Xsf [facility] Comment on above:Performed By: #### PT, PTT #### [facility] [address] [place] [address] Dr. Gasper GarberCO2 [Moles/Vol]29.0 mmol/RJtmvyr72.0-32.0The [facility] Comment on above:Performed By: #### PT, PTT #### [facility] [address] [place] [address] Dr. Gasper GarberCreatinine [Mass/Vol]2.05 mg/dLCritically high0.55-1.02The [facility] HospitalComment on above:Performed By: #### PT, PTT #### [facility] [address] [place] [address] Dr. Gasper RankinGFR-AF WRYUXVCJ61 mL/min/1.85a8Cstsvqtdkr low>=60The [facility] HospitalComment on above:Performed By: #### PT, PTT #### [facility] [address] [place] [address] Dr. Gasper RankinGFR-NON AF IJSIGJLZ29 mL/min/1.70a2Lvgafjbcdx low>=60The [facility] HospitalComment on above:Performed By: #### PT, PTT #### [facility] [address] [address] [address] Gasper GarberGlucose [Mass/Vol]203 mg/dLCritically fqrr90-804Len [facility] HospitalComment on above:Performed By: #### PT, PTT #### [facility] [address] [address] [address] Gasper GarberPotassium [Moles/Vol]4.5 mmol/LNormal3.5-5.1The [facility] Comment on above:Performed By: #### PT, PTT #### [facility] [address] [address] [address] Gasper GarberSodium [Moles/Vol]140 mmol/PNajmyt382-242Jur [facility] Comment on above:Performed By: #### PT, PTT #### [facility] [address] [place] [address] Dr. Gasper GarberUrea nitrogen [Mass/Vol]34.0 mg/dLCritically high7.0-18.0The [facility] HospitalComment on above:Performed By: #### PT, PTT #### [facility] [address] [place] [address] Dr. Gasper Aguayo nitrogen/Creatinine [Mass ratio]16.6 mg/mgNormalThe [facility] HospitalComment on above:Performed By: #### PT, PTT #### [facility] [address] [place] [address] Dr. Gasper Wilson 04-68-2726Tucqkpzhhfi peptide B (Bld) [Mass/Vol]1454.0 pg/mLCritically high<=900.0The [facility] HospitalComment on above:Performed By: #### TONI LESLIERO #### [facility] [address] [place] [address] Dr. Gasper Su AUTO DIFFon [id number] #0.1 103/ulNormal0.0-0.1The [facility] HospitalComment on above:Performed By: #### JOANNE LESLIEICRO #### [facility] [address] [place] [address] Dr. Yilan ChangBasophils/100 WBC (Bld)0.7 %Normal0.2-2.0The [facility] Comment on above:Performed By: #### TONI LESLIERO #### [facility] [address] [place] [address] Dr. Gasper Bennett #0.3 103/ulNormal0.0-0.7The [facility] HospitalComment on above: Performed By: #### ANUJ UMICRO #### [facility] [address] [place] [address] Dr. Gasper Rankinosinophils/100 WBC (Bld)4.3 %Normal0.9-7.0The [facility] Comment on above:Performed By: #### ANUJ UMICRO #### [facility] [address] [place] [address] Dr. Gasper Rankinrythrocyte distribution width (RBC) [Ratio]13.0 %Tleoju57.0-15.0 The [facility] HospitalComment on above:Performed By: #### ANUJ UMICRO #### [facility] [address] [place] [address] Dr. Gasper GarberHematocrit (Bld) [Volume fraction]34.5 %Critically low36.0-48.0 The [facility] HospitalComment on above:Performed By: #### JOANNE LESLIEICRO #### [facility] [address] [place] [address] Dr. Gasper GarberHemoglobin (Bld) [Mass/Vol]11.0 g/dLCritically low12.0-16.0The [facility] HospitalComment on above:Performed By: #### ANUJ UMICRO #### [facility] [address] [place] [address] Dr. Gasper Moreira #0.02 10e3/ulNormal0.00-0.03The [facility] HospitalComment on above:Performed By: #### ANUJ UMICRO #### [facility] [address] [place] [address] Dr. Gasper Moreira %0.3 %Normal0.0-0.5The [facility] HospitalComment on above: Performed By: #### BERNIE LESLIE #### [facility] [address] [place] [address] Dr. Gasper Hagan #1.1 103/ulCritically low1.2-3.8The [facility] Comment on above:Performed By: #### TONI LESLIERO #### [facility] [address] [place] [address] Dr. Gasper Westhocytes/100 WBC (Bld)14.3 %Critically low20.5-60.0The [facility] HospitalComment on above:Performed By: #### TONI LESLIERO #### [facility] [address] [place] [address] Dr. Gasper Bardales DIFF REQNONormalThe [facility] HospitalComment on above: Performed By: #### TONI LESLIERO #### [facility] [address] [place] [address] Dr. Gasper Zayas (RBC) [Entitic mass]30.9 ofZqgvdm49.7-34.0The [facility] HospitalComment on above:Performed By: #### TONI LESLIERO #### [facility] [address] [place] [address] Dr. Gasper Zayas (RBC) [Mass/Vol]31.9 g/jSJmcbao06.9-35.2The [facility] HospitalComment on above:Performed By: #### TONI LESLIERO #### [facility] [address] [place] [address] Dr. Gasper Zayas (RBC) [Entitic vol]96.9 dUAelmop31.0-99.0The [facility] HospitalComment on above:Performed By: #### ANUJ UMICRO #### [facility] [address] [place] [address] Dr. Gasper Suarez #0.7 103/ulNormal0.3-0.8The [facility] HospitalComment on above:Performed By: #### ANUJ UMICRO #### [facility] [address] [place] [address] Dr. Gasper Laraocytes/100 WBC (Bld)9.3 %Normal1.7-12.0The [facility] Comment on above:Performed By: #### ANUJ UMICRO #### [facility] [address] [place] [address] Dr. Gasper KnowlesUT #5.4 103/ulNormal1.4-6.5The [facility] HospitalComment on above:Performed By: #### ANUJ UMICRO #### [facility] [address] [place] [address] Dr. Gasper Knowlesutrophils/100 WBC (Bld)71.1 %Btpazs79.0-75.0The [facility] HospitalComment on above:Performed By: #### ANUJ UMICRO #### [facility] [address] [place] [address] Dr. Gasper GarberPlatelet mean volume (Bld) [Entitic vol]10.2 fLNormal9.5-13.5The [facility] HospitalComment on above:Performed By: #### ANUJ UMICRO #### [facility] [address] [place] [address] Dr. Gasper GarberPLT284 103/whIcvrfn371-676Wdd [facility] HospitalComment on above: Performed By: #### ANUJ UMICRO #### [facility] [address] [place] [address] Dr. Gasper GarberRBC3.56 106/ulCritically low4.20-5.40The [facility] HospitalComment on above:Performed By: #### ANUJ UMICRO #### [facility] [address] [place] [address] Dr. Gasper GarberWBC7.6 103/ulNormal4.0-11.0The [facility] HospitalComment on above: Performed By: #### ANUJ UMICRO #### [facility] [address] [place] [address] Dr. Gasper Valdiiva CHEM 8 (BAS METB)on 45-59-6344Uucxs gap [Moles/Vol]15.3 mmol/LNormalThe [facility] HospitalComment on above:Performed By: #### ANUJ UMICRO #### [facility] [address] [address] [address] Gasper GarberCalcium [Mass/Vol]9.1 mg/dLNormal8.5-10.1The [facility] Comment on above:Performed By: #### ANUJ UMICRO #### [facility] [address] [address] [address] Gasper GarberChloride [Moles/Vol]100 mmol/LPsnoss60-947OphSt. Anthony'S Hospital Comment on above:Performed By: #### ANUJ UMICRO #### [facility] [address] [place] [address] Dr. Gasper GarberCO2 [Moles/Vol]26.8 mmol/JMahiwr87.0-32.0The [facility] Comment on above:Performed By: #### ANUJ UMICRO #### [facility] [address] [address] [address] Gasper GarberCreatinine [Mass/Vol]2.83 mg/dLCritically high0.55-1.02The [facility] HospitalComment on above:Performed By: #### ANUJ UMICRO #### [facility] [address] [address] [address] Gasper RankinGFR-AF BTWTQVUU08 mL/min/1.41v7Mhptocewjj low>=60The [facility] HospitalComment on above:Performed By: #### ERUR, UMICRO #### [facility] [address] [address] [address] Gasper RankinGFR-NON AF NJVHJNLB63 mL/min/1.78x7Ahvxnsgvlm low>=60The [facility] HospitalComment on above:Performed By: #### ERUR, UMICRO #### [facility] [address] [address] [address] Gasper GarberGlucose [Mass/Vol]141 mg/dLCritically tqzx82-296Qvh [facility] HospitalComment on above:Performed By: #### BERNIE LESLIE #### [facility] [address] [place] [address] Dr. Gasper GarberPotassium [Moles/Vol]4.1 mmol/LNormal3.5-5.1[facility] Comment on above:Performed By: #### BERNIE LESLIE #### [facility] [address] [place] [address] Dr. Gasper GarberSodium [Moles/Vol]138 mmol/GPcyndw106-726LukSt. Anthony'S Hospital Comment on above:Performed By: #### BERNIE LESLIE #### [facility] [address] [place] [address] Dr. Gasper GarberUrea nitrogen [Mass/Vol]48.0 mg/dLCritically high7.0-18.0The [facility] HospitalComment on above:Performed By: #### BERNIE LESLIE #### [facility] [address] [place] [address] Dr. Gasper GarberUrea nitrogen/Creatinine [Mass ratio]17.0 mg/mgNormalThOhioHealth Nelsonville Health CenterComment on above:Performed By: #### BERNIE LESLIE #### [facility] [address] [place] [address] Dr. Gasper GarberCULTVALERIA URINEon 45-17-2169DTMEVAV URINEIsolate 1 Klebsiella pneumoniae >100,000 cfu/mL of [...] Nitrofurantoin 64 I F Trimethoprim/Sulfamethoxazole <=20 S FNormalSt. Anthony'S HospitalComment on above:Performed By: #### ACETON #### [facility] [address] [place] [address] Dr. Gasper Wilson 58-48-6314Jtwxbixrfyi peptide B (Bld) [Mass/Vol]2592.0 pg/mLCritically high<=900.0The [facility] HospitalComment on above:Performed By: #### URCX #### [facility] [address] [place] [address] Dr. Gasper Su AUTO DIFFon 93-81-8615EKFW #0.0 103/ulNormal0.0-0.1The [facility] HospitalComment on above:Performed By: #### LACT #### [facility] [address] [place] [address] Dr. Gasper GarberBasophils/100 WBC (Bld)0.4 %Normal0.2-2.0The [facility] Comment on above:Performed By: #### LACT #### [facility] [address] [place] [address] Dr. Gasper Bennett #0.3 103/ulNormal0.0-0.7The [facility] Hospitalment on above: Performed By: #### LACT #### [facility] [address] [place] [address] Dr. Gasper Rankinosinophils/100 WBC (Bld)4.3 %Normal0.9-7.0The [facility] Comment on above:Performed By: #### LACT #### [facility] [address] [place] [address] Dr. Gasper Rankinrythrocyte distribution width (RBC) [Ratio]12.5 %Ftpchx82.0-15.0 The [facility] HospitalComment on above:Performed By: #### LACT #### [facility] [address] [place] [address] Dr. Gasper GarberHematocrit (Bld) [Volume fraction]30.3 %Critically low36.0-48.0 The [facility] HospitalComment on above:Performed By: #### LACT #### [facility] [address] [address] [address] Gasper GarberHemoglobin (Bld) [Mass/Vol]9.8 g/dLCritically low12.0-16.0The [facility] HospitalComment on above:Performed By: #### LACT #### [facility] [address] [place] [address] Dr. Gasper Moreira #0.02 10e3/ulNormal0.00-0.03The [facility] HospitalComment on above:Performed By: #### LACT #### [facility] [address] [place] [address] Dr. Gasper Moreira %0.3 %Normal0.0-0.5The [facility] HospitalComment on above: Performed By: #### LACT #### [facility] [address] [place] [address] Dr. Gasper Hagan #1.5 103/ulNormal1.2-3.8The [facility] HospitalComment on above:Performed By: #### LACT #### [facility] [address] [place] [address] Dr. Gasper Westhocytes/100 WBC (Bld)19.8 %Critically low20.5-60.0The [facility] HospitalComselect [facility] on above:Performed By: #### LACT #### [facility] [address] [place] [address] Dr. Gasper MunguiaUAL DIFF REQNONormalThe [facility] HospitalComment on above: Performed By: #### LACT #### [facility] [address] [place] [address] Dr. Gasper Zayas (RBC) [Entitic mass]31.3 kmLhkjsq11.7-34.0The [facility] HospitalComment on above:Performed By: #### LACT #### [facility] [address] [place] [address] Dr. Gasper Zayas (RBC) [Mass/Vol]32.3 g/gMHtuhti87.9-35.2The [facility] HospitalComment on above:Performed By: #### LACT #### [facility] [address] [place] [address] Dr. Gasper ZayasV (RBC) [Entitic vol]96.8 xINoipxg97.0-99.0The [facility] HospitalComment on above:Performed By: #### LACT #### [facility] [address] [place] [address] Dr. Gasper Suarez #0.9 103/ulCritically high0.3-0.8The [facility] Comment on above:Performed By: #### LACT #### [facility] [address] [place] [address] Dr. Gasper Laraocytes/100 WBC (Bld)11.7 %Normal1.7-12.0[facility] Comment on above:Performed By: #### LACT #### [facility] [address] [place] [address] Dr. Gasper Brannon #4.8 103/ulNormal1.4-6.5The [facility] HospitalComment on above:Performed By: #### LACT #### [facility] [address] [place] [address] Dr. Gasper Knowlesutrophils/100 WBC (Bld)63.5 %Acsiaj27.0-75.0The [facility] HospitalComment on above:Performed By: #### LACT #### [facility] [address] [place] [address] Dr. Gasper Andrelet mean volume (Bld) [Entitic vol]10.9 fLNormal9.5-13.5The [facility] HospitalComment on above:Performed By: #### LACT #### [facility] [address] [place] [address] Dr. Gasper GarberPLT193 103/ghYpssqd144-614Rti [facility] HospitalComment on above: Performed By: #### LACT #### [facility] [address] [place] [address] Dr. Gasper GarberRBC3.13 106/ulCritically low4.20-5.40The [facility] HospitalComment on above:Performed By: #### LACT #### [facility] [address] [address] [address] Gasper GarberWBC7.5 103/ulNormal4.0-11.0The [facility] HospitalComment on above: Performed By: #### LACT #### [facility] [address] [place] [address] Dr. Gasper GarberPOINT OF CARE GLUCOSEon 77-15-4207Owfwkmz [Mass/Vol]244 mg/dL Critically nlln42-772Byz [facility] HospitalComment on above:Performed By: #### LACT #### [facility] [address] [place] [address] Dr. Gasper GarberGlucose [Mass/Vol]151 mg/dLCritically yejr53-040Uir [facility] HospitalComment on above:Performed By: #### ERURBERNIE #### [facility] [address] [place] [address] Dr. Gasper GarberPROF 14(COMP METB)on 66-13-8226Bufqhfd [Mass/Vol]2.9 g/dL Critically low3.4-5.0The [facility] HospitalComment on above:Performed By: #### URCX #### [facility] [address] [place] [address] Dr. Gasper GarberAlbumin/Globulin [Mass ratio]1.0 {ratio}NormalThe [facility] HospitalComment on above:Performed By: #### URCX #### [facility] [address] [place] [address] Dr. Gasper Boss [Catalytic activity/Vol]63 U/QZsqfub43-513Twk [facility] HospitalComment on above:Performed By: #### URCX #### [facility] [address] [place] [address] Dr. Gasper Alamo [Catalytic activity/Vol]33 U/UPpdube41-78Rlw [facility] HospitalComment on above:Performed By: #### URCX #### [facility] [address] [place] [address] Dr. Gasper Danielle gap [Moles/Vol]13.1 mmol/LNormalThe [facility] Comment on above:Performed By: #### URCX #### [facility] [address] [place] [address] Dr. Gasper GarberAST [Catalytic activity/Vol]30 U/PWihdyw30-86Wbt [facility] HospitalComment on above:Performed By: #### URCX #### [facility] [address] [place] [address] Dr. Gasper GarberBilirubin [Mass/Vol]0.3 mg/dLNormal0.2-1.0[facility] Comment on above:Performed By: #### URCX #### [facility] [address] [place] [address] Dr. Gasper GarberCalcium [Mass/Vol]8.7 mg/dLNormal8.5-10.1[facility] Comment on above:Performed By: #### URCX #### [facility] [address] [place] [address] Dr. Gasper GarberChloride [Moles/Vol]109 mmol/LCritically houm72-953Rqp [facility] HospitalComment on above:Performed By: #### URCX #### [facility] [address] [place] [address] Dr. Gasper GarberCO2 [Moles/Vol]24.5 mmol/XMqtcud31.0-32.0[facility] Comment on above:Performed By: #### URCX #### [facility] [address] [place] [address] Dr. Gasper GarberCreatinine [Mass/Vol]1.33 mg/dLCritically high0.55-1.02The [facility] HospitalComment on above:Performed By: #### URCX #### [facility] [address] [place] [address] Dr. Gasper RankinGFR-AF VUNYUNPD58 mL/min/1.82s5Dvfipgvild low>=60The [facility] HospitalComment on above:Performed By: #### URCX #### [facility] [address] [place] [address] Dr. Yilan ChangEGFR-NON AF LYJUQPSC56 mL/min/1.32o7Ppdakjjbfa low>=60The [facility] HospitalComment on above:Performed By: #### URCX #### [facility] [address] [place] [address] Dr. Gasper GarberGlobulin (S) [Mass/Vol]3.0 g/dLNoOhioHealth Van Wert HospitalComment on above:Performed By: #### URCX #### [facility] [address] [place] [address] Dr. Gasper GarberGlucose [Mass/Vol]142 mg/dLCritically wqwe47-560Fac [facility] HospitalComment on above:Performed By: #### URCX #### [facility] [address] [place] [address] Dr. Gasper GarberPotassium [Moles/Vol]3.6 mmol/LNormal3.5-5.1The [facility] Comment on above:Performed By: #### URCX #### [facility] [address] [place] [address] Dr. Gasper GarberProtein [Mass/Vol]5.9 g/dLCritically low6.4-8.2The [facility] HospitalComment on above:Performed By: #### URCX #### [facility] [address] [place] [address] Dr. Gasper GarberSodium [Moles/Vol]143 mmol/CJauydj697-811Iba [facility] Comment on above:Performed By: #### URCX #### [facility] [address] [place] [address] Dr. Gasper GarberUrea nitrogen [Mass/Vol]25.0 mg/dLCritically high7.0-18.0The [facility] HospitalComment on above:Performed By: #### URCX #### [facility] [address] [place] [address] Dr. Gapser GarberUrea nitrogen/Creatinine [Mass ratio]18.8 mg/mgNoOhioHealth Van Wert HospitalComment on above:Performed By: #### URCX #### [facility] [address] [place] [address] Dr. Gasper Wilson 95-54-3713Ucwjoohdbsc peptide B (Bld) [Mass/Vol]761.0 pg/mL Normal<=900.0St. [facility]'S HospitalComment on above:Performed By: #### PT, PTT #### [facility] [address] [place] [address] Dr. Gasper Su AUTO DIFFon 07-20-3326TQGR #0.1 103/ulNormal0.0-0.1The [facility] HospitalComment on above:Performed By: #### LACT #### [facility] [address] [place] [address] Dr. Gasper GarberBasophils/100 WBC (Bld)0.6 %Normal0.2-2.0[facility] Comment on above:Performed By: #### LACT #### [facility] [address] [place] [address] Dr. Gasper Bennett #0.2 103/ulNormal0.0-0.7The [facility] HospitalComment on above: Performed By: #### LACT #### [facility] [address] [place] [address] Dr. Gasper GarberPerformed By: #### PT, PTT #### [facility] [address] [place] [address] Dr. Gasper Rankinosinophils/100 WBC (Bld)2.3 %Normal0.9-7.0[facility] Comment on above:Performed By: #### LACT #### [facility] [address] [place] [address] Dr. Gasper Rankinrythrocyte distribution width (RBC) [Ratio]12.3 %Xxjkly21.0-15.0 The [facility] HospitalComment on above:Performed By: #### LACT #### [facility] [address] [place] [address] Dr. Gasper GarberHematocrit (Bld) [Volume fraction]32.3 %Critically low36.0-48.0 The [facility] HospitalComment on above:Performed By: #### LACT #### [facility] [address] [address] [address] Gasper GarberHemoglobin (Bld) [Mass/Vol]10.3 g/dLCritically low12.0-16.0The [facility] HospitalComment on above:Performed By: #### LACT #### [facility] [address] [place] [address] Dr. Gasper Moreira #0.01 10e3/ulNormal0.00-0.03The [facility] HospitalComment on above:Performed By: #### LACT #### [facility] [address] [place] [address] Dr. Gasper Moreira %0.1 %Normal0.0-0.5The [facility] HospitalComment on above: Performed By: #### LACT #### [facility] [address] [place] [address] Dr. Gasper Hagan #1.1 103/ulCritically low1.2-3.8The [facility] Comment on above:Performed By: #### LACT #### [facility] [address] [place] [address] Dr. Gasper Westhocytes/100 WBC (Bld)12.2 %Critically low20.5-60.0The [facility] HospitalComment on above:Performed By: #### LACT #### [facility] [address] [place] [address] Dr. Gasper MunguiaUAL DIFF REQNONormalThe [facility] HospitalComment on above: Performed By: #### LACT #### [facility] [address] [place] [address] Dr. Gasper GarberPerformed By: #### PT, PTT #### [facility] [address] [place] [address] Dr. Gasper Nix (RBC) [Entitic mass]30.8 bcHrnjtf31.7-34.0The [facility] HospitalComment on above:Performed By: #### LACT #### [facility] [address] [place] [address] Dr. Gasper Zayas (RBC) [Mass/Vol]31.9 g/bBCvjvvg49.9-35.2The [facility] HospitalComment on above:Performed By: #### LACT #### [facility] [address] [place] [address] Dr. Gasper Scott (RBC) [Entitic vol]96.7 lPXpzxbm75.0-99.0The [facility] HospitalComment on above:Performed By: #### LACT #### [facility] [address] [place] [address] Dr. Gasper Suarez #0.8 103/ulNormal0.3-0.8The [facility] HospitalComment on above:Performed By: #### LACT #### [facility] [address] [place] [address] Dr. Gasper Laraocytes/100 WBC (Bld)8.8 %Normal1.7-12.0The [facility] Comment on above:Performed By: #### LACT #### [facility] [address] [place] [address] Dr. Gasper Brannon #6.5 103/ulNormal1.4-6.5The [facility] HospitalComment on above:Performed By: #### LACT #### [facility] [address] [place] [address] Dr. Gasper Knowlesutrophils/100 WBC (Bld)76.0 %Critically high43.0-75.0The [facility] HospitalComment on above:Performed By: #### LACT #### [facility] [address] [place] [address] Dr. Gasper Paz mean volume (Bld) [Entitic vol]10.6 fLNormal9.5-13.5The [facility] HospitalComment on above:Performed By: #### LACT #### [facility] [address] [place] [address] Dr. Gasper NicholsonT214 103/myWaqxse038-006Gds [facility] HospitalComment on above: Performed By: #### LACT #### [facility] [address] [place] [address] Dr. Gasper OlmosC3.34 106/ulCritically low4.20-5.40The [facility] HospitalComment on above:Performed By: #### LACT #### [facility] [address] [address] [address] Gasper GarberWBC8.6 103/ulNormal4.0-11.0The [facility] HospitalComment on above: Performed By: #### LACT #### [facility] [address] [address] [address] Gasper MedelSO #0.0 103/ulNormal0.0-0.1The [facility] HospitalComment on above:Performed By: #### PT, PTT #### [facility] [address] [place] [address] Dr. Gasper GarberBasophils/100 WBC (Bld)0.4 %Normal0.2-2.0The [facility] Comment on above:Performed By: #### PT, PTT #### [facility] [address] [place] [address] Dr. Gasper Rankinosinophils/100 WBC (Bld)2.5 %Normal0.9-7.0The [facility] Comment on above:Performed By: #### PT, PTT #### [facility] [address] [place] [address] Dr. Gasper Rankinrythrocyte distribution width (RBC) [Ratio]12.4 %Bycmxz22.0-15.0 The [facility] HospitalComment on above:Performed By: #### PT, PTT #### [facility] [address] [place] [address] Dr. Gasper GarberHematocrit (Bld) [Volume fraction]29.3 %Critically low36.0-48.0 The [facility] HospitalComment on above:Performed By: #### PT, PTT #### [facility] [address] [place] [address] Dr. Gasper GarberHemoglobin (Bld) [Mass/Vol]9.5 g/dLCritically low12.0-16.0The [facility] HospitalComment on above:Performed By: #### PT, PTT #### [facility] [address] [place] [address] Dr. Gasper Moreira #0.02 10e3/ulNormal0.00-0.03The [facility] HospitalComment on above:Performed By: #### PT, PTT #### [facility] [address] [place] [address] Dr. Gasper Moreira %0.2 %Normal0.0-0.5The [facility] HospitalComselect [facility] on above: Performed By: #### PT, PTT #### [facility] [address] [place] [address] Dr. Gasper Hagan #1.3 103/ulNormal1.2-3.8The [facility] HospitalComselect [facility] on above:Performed By: #### PT, PTT #### [facility] [address] [place] [address] Dr. Gasper Westhocytes/100 WBC (Bld)16.4 %Critically low20.5-60.0The [facility] on above:Performed By: #### PT, PTT #### [facility] [address] [place] [address] Dr. Gasper Nix (RBC) [Entitic mass]31.3 ppNbtcjt47.7-34.0The [facility] on above:Performed By: #### PT, PTT #### [facility] [address] [place] [address] Dr. Gasper Zayas (RBC) [Mass/Vol]32.4 g/mCZkvubr54.9-35.2The [facility] HospitalComment on above:Performed By: #### PT, PTT #### [facility] [address] [place] [address] Dr. Gasper Scott (RBC) [Entitic vol]96.4 lIBmqevg61.0-99.0The [facility] on above:Performed By: #### PT, PTT #### [facility] [address] [place] [address] Dr. Gasper Suarez #0.9 103/ulCritically high0.3-0.8The [facility] Comment on above:Performed By: #### PT, PTT #### [facility] [address] [place] [address] Dr. Gasper Laraocytes/100 WBC (Bld)10.5 %Normal1.7-12.0The [facility] Comment on above:Performed By: #### PT, PTT #### [facility] [address] [place] [address] Dr. Gasper Brannon #5.7 103/ulNormal1.4-6.5The [facility] HospitalComment on above:Performed By: #### PT, PTT #### [facility] [address] [place] [address] Dr. Gasper Knowlesutrophils/100 WBC (Bld)70.0 %Hpbywq53.0-75.0The [facility] HospitalComment on above:Performed By: #### PT, PTT #### [facility] [address] [place] [address] Dr. Gasper Paz mean volume (Bld) [Entitic vol]10.9 fLNormal9.5-13.5The [facility] HospitalComment on above:Performed By: #### PT, PTT #### [facility] [address] [place] [address] Dr. Gasper GarberPLT203 103/gsKaizqb666-848Dzt [facility] HospitalComment on above: Performed By: #### PT, PTT #### [facility] [address] [place] [address] Dr. Gasper GarberRBC3.04 106/ulCritically low4.20-5.40The [facility] HospitalComment on above:Performed By: #### PT, PTT #### [facility] [address] [place] [address] Dr. Gasper GarberWBC8.2 103/ulNormal4.0-11.0The [facility] HospitalComment on above: Performed By: #### PT, PTT #### [facility] [address] [place] [address] Dr. Gasper Trevino BLOODon 03-68-5864Bzampgpeqmk examination of blood, cultureCulture Observations: NO GROWTH AT 5 DAYS.NormalTrumbull Regional Medical Center HospitalComment on above:Performed By: #### [id number] #### [facility] [address] [place] [address] Dr. Gasper GarberMicroscopic examination of blood, cultureCulture Observations: NO GROWTH AT 5 DAYS.NormalThe [facility] HospitalComment on above:Performed By: #### ACETON #### [facility] [address] [place] [address] Dr. Gasper GarberSOUT[facility] CARE GLUCOSEon 34-23-3887Uxhowzn [Mass/Vol]155 mg/dL Critically jxtk91-918Kee [facility] HospitalComment on above:Performed By: #### PT, PTT #### [facility] [address] [place] [address] Dr. Gasper GarberGlucose [Mass/Vol]165 mg/dLCritically egan70-337Sed [facility] HospitalComment on above:Performed By: #### POCGLUC #### [facility] [address] [place] [address] Dr. Gasper GarberGlucose [Mass/Vol]232 mg/dLCritically einm00-254Vjx [facility] HospitalComment on above:Performed By: #### ERUR, UMICRO #### [facility] [address] [place] [address] Dr. Gasper GarberPROF 14(COMP METB)on 07-04-0177Tbqartv [Mass/Vol]2.9 g/dL Critically low3.4-5.0The [facility] HospitalComment on above:Performed By: #### PT, PTT #### [facility] [address] [place] [address] Dr. Gasper GarberAlbumin/Globulin [Mass ratio]1.0 {ratio}NormalSt. Anthony'S HospitalComment on above:Performed By: #### PT, PTT #### [facility] [address] [place] [address] Dr. Gasper GómezP [Catalytic activity/Vol]62 U/IPzlous68-900Fso [facility] HospitalComment on above:Performed By: #### PT, PTT #### [facility] [address] [place] [address] Dr. Gasper GómezT [Catalytic activity/Vol]34 U/JCngwcc49-52Mou [facility] HospitalComment on above:Performed By: #### PT, PTT #### [facility] [address] [place] [address] Dr. Gasper Gunteron gap [Moles/Vol]10.8 mmol/LNormalSt. Anthony'S Hospital Comment on above:Performed By: #### PT, PTT #### [facility] [address] [place] [address] Dr. Gasper GarberAST [Catalytic activity/Vol]14 U/LCritically yeu00-90Yqs [facility] HospitalComment on above:Performed By: #### PT, PTT #### [facility] [address] [place] [address] Dr. Gasper GarberBilirubin [Mass/Vol]0.4 mg/dLNormal0.2-1.0[facility] Comment on above:Performed By: #### PT, PTT #### [facility] [address] [place] [address] Dr. Gasper GarberCalcium [Mass/Vol]8.4 mg/dLCritically low8.5-10.1The [facility] HospitalComment on above:Performed By: #### PT, PTT #### [facility] [address] [place] [address] Dr. Gasper GarberChloride [Moles/Vol]105 mmol/HInzaov97-609Twm [facility] Comment on above:Performed By: #### PT, PTT #### [facility] [address] [place] [address] Dr. Gasper GarberCO2 [Moles/Vol]26.3 mmol/HPmkkim32.0-32.0The [facility] Comment on above:Performed By: #### PT, PTT #### [facility] [address] [place] [address] Dr. Gasper GarberCreatinine [Mass/Vol]2.20 mg/dLCritically high0.55-1.02The [facility] HospitalComment on above:Performed By: #### PT, PTT #### [facility] [address] [address] [address] Gasper RankinGFR-AF FNRKOUAD58 mL/min/1.87o5Cpzmqftqdw low>=60The [facility] HospitalComment on above:Performed By: #### PT, PTT #### [facility] [address] [address] [address] Gasper RankinGFR-NON AF WNONZFTP88 mL/min/1.94n2Hxjprwzoce low>=60The [facility] HospitalComment on above:Performed By: #### PT, PTT #### [facility] [address] [place] [address] Dr. Gasper GarberGlobulin (S) [Mass/Vol]2.9 g/dLNormalThe [facility] HospitalComment on above:Performed By: #### PT, PTT #### [facility] [address] [place] [address] Dr. Gasper GarberGlucose [Mass/Vol]167 mg/dLCritically itsw66-751Xbb [facility] HospitalComment on above:Performed By: #### PT, PTT #### [facility] [address] [place] [address] Dr. Gasper GarberPotassium [Moles/Vol]3.1 mmol/LCritically low3.5-5.1The [facility] HospitalComment on above:Performed By: #### PT, PTT #### [facility] [address] [place] [address] Dr. Gasper GarberProtein [Mass/Vol]5.8 g/dLCritically low6.4-8.2The [facility] HospitalComment on above:Performed By: #### PT, PTT #### [facility] [address] [place] [address] Dr. Gasper GarberSodium [Moles/Vol]139 mmol/HHziomp851-607Ngf [facility] Comment on above:Performed By: #### PT, PTT #### [facility] [address] [address] [address] Gasper Aguayo nitrogen [Mass/Vol]41.0 mg/dLCritically high7.0-18.0The [facility] HospitalComment on above:Performed By: #### PT, PTT #### [facility] [address] [address] [address] Gasper Aguayo nitrogen/Creatinine [Mass ratio]18.6 mg/mgNormalThe [facility] HospitalComment on above:Performed By: #### PT, PTT #### [facility] [address] [place] [address] Dr. Gasper Su AUTO DIFFon 43-30-0516KMRF #0.0 103/ulNormal0.0-0.1The [facility] HospitalComment on above:Performed By: #### PT, PTT #### [facility] [address] [place] [address] Dr. Gasper GarberBasophils/100 WBC (Bld)0.4 %Normal0.2-2.0[facility] Comment on above:Performed By: #### PT, PTT #### [facility] [address] [place] [address] Dr. Gasper Bennett #0.2 103/ulNormal0.0-0.7The [facility] HospitalComment on above: Performed By: #### PT, PTT #### [facility] [address] [place] [address] Dr. Gasper Rankinosinophils/100 WBC (Bld)1.6 %Normal0.9-7.0The [facility] Comment on above:Performed By: #### PT, PTT #### [facility] [address] [place] [address] Dr. Gasper Rankinrythrocyte distribution width (RBC) [Ratio]12.4 %Hsolba39.0-15.0 The [facility] HospitalComment on above:Performed By: #### PT, PTT #### [facility] [address] [place] [address] Dr. Gasper GarberHematocrit (Bld) [Volume fraction]34.7 %Critically low36.0-48.0 The [facility] HospitalComment on above:Performed By: #### PT, PTT #### [facility] [address] [place] [address] Dr. Gasper GarberHemoglobin (Bld) [Mass/Vol]11.4 g/dLCritically low12.0-16.0The [facility] HospitalComment on above:Performed By: #### PT, PTT #### [facility] [address] [place] [address] Dr. Gasper Moreira #0.02 10e3/ulNormal0.00-0.03The [facility] HospitalComment on above:Performed By: #### PT, PTT #### [facility] [address] [place] [address] Dr. Gasper Moreira %0.2 %Normal0.0-0.5The [facility] HospitalComment on above: Performed By: #### PT, PTT #### [facility] [address] [place] [address] Dr. Gasper Hagan #1.6 103/ulNormal1.2-3.8The [facility] HospitalComment on above:Performed By: #### PT, PTT #### [facility] [address] [place] [address] Dr. Gasper Westhocytes/100 WBC (Bld)17.7 %Critically low20.5-60.0The [facility] HospitalComment on above:Performed By: #### PT, PTT #### [facility] [address] [place] [address] Dr. Gasper MunguiaUAL DIFF REQNONormalThe [facility] HospitalComment on above: Performed By: #### PT, PTT #### [facility] [address] [place] [address] Dr. Gasper Nix (RBC) [Entitic mass]31.1 qwSodydx51.7-34.0The [facility] HospitalComment on above:Performed By: #### PT, PTT #### [facility] [address] [place] [address] Dr. Gasper Zayas (RBC) [Mass/Vol]32.9 g/uIQptcjx17.9-35.2The [facility] HospitalComment on above:Performed By: #### PT, PTT #### [facility] [address] [place] [address] Dr. Gasper ZayasV (RBC) [Entitic vol]94.8 dMHegazm64.0-99.0The [facility] HospitalComment on above:Performed By: #### PT, PTT #### [facility] [address] [place] [address] Dr. Gasper Suarez #1.0 103/ulCritically high0.3-0.8The [facility] Comment on above:Performed By: #### PT, PTT #### [facility] [address] [place] [address] Dr. Gasper Laraocytes/100 WBC (Bld)10.3 %Normal1.7-12.0The [facility] Comment on above:Performed By: #### PT, PTT #### [facility] [address] [place] [address] Dr. Gasper Brannon #6.4 103/ulNormal1.4-6.5The [facility] HospitalComment on above:Performed By: #### PT, PTT #### [facility] [address] [place] [address] Dr. Gasper Knowlesutrophils/100 WBC (Bld)69.8 %Tigbmv26.0-75.0The [facility] HospitalComment on above:Performed By: #### PT, PTT #### [facility] [address] [place] [address] Dr. Gasper Andrelet mean volume (Bld) [Entitic vol]10.4 fLNormal9.5-13.5The [facility] HospitalComment on above:Performed By: #### PT, PTT #### [facility] [address] [place] [address] Dr. Gasper GarberPLT269 103/alEhjeir237-307Ynr [facility] HospitalComment on above: Performed By: #### PT, PTT #### [facility] [address] [place], [place] [address] Dr. Gasper GarberRBC3.66 106/ulCritically low4.20-5.40The [facility] HospitalComment on above:Performed By: #### PT, PTT #### [facility] [address] [place], [place] [address] Dr. Gasper GarberWBC9.2 103/ulNormal4.0-11.0The [facility] HospitalComment on above: Performed By: #### PT, PTT #### [facility] [address] [place], [place] [address] Dr. Gasper GarberCT ABD/PELVIS WO CONon [id number] ABD/PELVIS WO CONCT ABDOMEN AND PELVIS WITHOUT [...] Electronically authenticated by: NASRIN CHIU Date: 2021-07-15 18:16NoOhioHealth Van Wert HospitalCovid-19 PCR (CVDTBH)on [id number]-CoV-2 (COVID-19) RNA ANA LUISA+probe Ql (Unsp spec)Not detectedNormalNOT DETECTEDThe [facility] Comment on above:Result Comment: When diagnostic [...] for this test is supported by the [place] of [employer] and Human Service's declaration that [...] longer be used).Performed By: #### LACT #### [facility] [address] [place] [address] Dr. Gasper Purvis URINE PROFILEon 97-35-0153Vhvwksngk Ql (U)NegativeNormal NEGATIVESt. Anthony'S HospitalComment on above:Performed By: #### ERUR UMICRO #### [facility] [address] [place] [address] Dr. Gasper GarberClarity (U)CLEARNormalCLEARSt. Anthony'S HospitalComment on above: Performed By: #### ERUR, UMICRO #### [facility] [address] [place] [address] Dr. Gasper Webster (U)LT. YELLOWNormalYELLOWSt. Anthony'S HospitalComment on above:Performed By: #### ERUR, UMICRO #### [facility] [address] [place] [address] Dr. Gasper Celis micrscopic examination will be performed if indicated. NormalThe [facility] HospitalComment on above:Performed By: #### ERUR, UMICRO #### [facility] [address] [place] [address] Dr. Gasper GarberGlucose Ql (U)NegativeNormalNEGATIVESt. Anthony'S HospitalComment on above:Performed By: #### ERUR, UMICRO #### [facility] [address] [place] [address] Dr. Gasper GarberHemoglobin Ql (U)NegativeNormalNEGATIVEThe [facility] on above:Performed By: #### TONI LESLIERO #### [facility] [address] [address] [address] Gasper GarberKetones Ql (U)NegativeNormalNEGATIVEThe [facility] HospitalComment on above:Performed By: #### ANUJ UMDINORAHRO #### [facility] [address] [place] [address] Dr. Gasper GarberLEUKOCYTESNegativeNormalNEGATIVEThe [facility] HospitalComment on above:Performed By: #### TONI LESLIERO #### [facility] [address] [place] [address] Dr. Gasper GarberNitrite Ql (U)NegativeNormalNEGATIVEThe [facility] HospitalComment on above:Performed By: #### TONI LESLIERO #### [facility] [address] [place] [address] Dr. Gasper GarberpH (U)5.5 [pH]Normal5-9The [facility] HospitalComment on above: Performed By: #### TONI LESLIERO #### [facility] [address] [place] [address] Dr. Gasper GarberSPEC GRAVITY1.440Cbwkll5.005-<=1.025The [facility] HospitalComment on above:Performed By: #### TONI LESLIERO #### [facility] [address] [place] [address] Dr. Gasper Dailey PROTEINTRACENormalNEGATIVE/ TRACEThe [facility] HospitalComment on above:Performed By: #### TONI LESLIERO #### [facility] [address] [place] [address] Dr. Gasper Hensley MICRO INDINDICATEDNoalThe [facility] HospitalComment on above: Performed By: #### BERNIE LESLIE #### [facility] [address] [place] [address] Dr. Gasper Snider Qn (U)0.2 {Kaushik'U}/dLNormal0.2 - 1.0The [facility] HospitalComment on above:Performed By: #### ERURBERNIE #### [facility] [address] [place] [address] Dr. Gasper Lima T3on 27-31-2902EAZZ T32.45 pg/mlLNormal2.18-3.98The [facility] HospitalComselect [facility] on above:Performed By: #### PT, PTT #### [facility] [address] [place] [address] Dr. Gasper Lima T4on 52-82-4360Pwkr T4 [Mass/Vol]1.19 ng/dLNormal0.76-1.46 The [facility] HospitalComment on above:Performed By: #### ACETON #### [facility] [address] [place] [address] Dr. Gasper GeeCTATE/LACTIC ACIDon 83-78-6212Sbemgpm [Moles/Vol]2.0 mmol/L Critically high0.4-1.9[facility] on above:Performed By: #### LACT #### [facility] [address] [place] [address] Dr. Gasper GarberLactate [Moles/Vol]4.0 mmol/LCritically high0.4-1.9The [facility] on above:Performed By: #### LACT #### [facility] [address] [place] [address] Dr. Gasper GarberLIPASEon 56-21-6246Hqaune [Catalytic activity/Vol]93.0 U/LNormal 73.0-393.0The [facility] HospitalComselect [facility] on above:Performed By: #### ACETON #### [facility] [address] [place] [address] Dr. Gasper GarberSA[place] OF CARE GLUCOSEon 44-35-1723Dulnkex [Mass/Vol]200 mg/dL Critically vmtc64-790Ubb [facility] HospitalComment on above:Performed By: #### PT, PTT #### [facility] [address] [address] [address] Gasper GarberPROF 14(COMP METB)on 35-63-8409Kndjjch [Mass/Vol]3.5 g/dLNormal 3.4-5.0The [facility] HospitalComment on above:Performed By: #### ACETON #### [facility] [address] [place] [address] Dr. Gasper GarberAlbumin/Globulin [Mass ratio]1.0 {ratio}NormalThe [facility] HospitalComment on above:Performed By: #### ACETON #### [facility] [address] [place] [address] Dr. Gasper GómezP [Catalytic activity/Vol]81 U/GLoguzg28-312Hsx [facility] HospitalComment on above:Performed By: #### ACETON #### [facility] [address] [place] [address] Dr. Gasper Alamo [Catalytic activity/Vol]43 U/VEtksec20-73Qsz [facility] HospitalComment on above:Performed By: #### ACETON #### [facility] [address] [place] [address] Dr. Gasper Danielle gap [Moles/Vol]13.6 mmol/LNormalThe [facility] Comment on above:Performed By: #### ACETON #### [facility] [address] [place] [address] Dr. Gasper GarberAST [Catalytic activity/Vol]19 U/FLeltzq15-40How [facility] HospitalComment on above:Performed By: #### ACETON #### [facility] [address] [place] [address] Dr. Gasper GarberBilirubin [Mass/Vol]0.6 mg/dLNormal0.2-1.0The [facility] Comment on above:Performed By: #### ACETON #### [facility] [address] [place] [address] Dr. Gasper GarberCalcium [Mass/Vol]8.9 mg/dLNormal8.5-10.1[facility] Comment on above:Performed By: #### ACETON #### [facility] [address] [address] [address] Gasper GarberChloride [Moles/Vol]103 mmol/QFrxfek09-501Zmp [facility] Comment on above:Performed By: #### ACETON #### [facility] [address] [address] [address] Gasper GarberCO2 [Moles/Vol]25.9 mmol/NDjnynr88.0-32.0The [facility] Comment on above:Performed By: #### ACETON #### [facility] [address] [address] [address] Gasper GarberCreatinine [Mass/Vol]2.91 mg/dLCritically high0.55-1.02The [facility] HospitalComment on above:Performed By: #### ACETON #### [facility] [address] [address] [address] Jackman ChangEGFR-AF IIOKDPQZ67 mL/min/1.22r3Zaxvyshigz low>=60The [facility] Memorial HospitalComment on above:Performed By: #### ACETON #### [facility] [address] [address] [address] Gasper RankinGFR-NON AF RYXIISZY18 mL/min/1.22f7Dtlvksvlly low>=60The [facility] HospitalComment on above:Performed By: #### ACETON #### [facility] [address] [address] [address] Gasper GarberGlobulin (S) [Mass/Vol]3.5 g/dLNormalThe [facility] HospitalComment on above:Performed By: #### ACETON #### [facility] [address] [address] [address] Gaspre GarberGlucose [Mass/Vol]201 mg/dLCritically fgmv76-675Czh [facility] HospitalComment on above:Performed By: #### ACETON #### [facility] [address] [address] [address] Gasper GarberPotassium [Moles/Vol]3.5 mmol/LNormal3.5-5.1The [facility] Comment on above:Performed By: #### ACETON #### [facility] [address] [place] [address] Dr. Gasper GarberProtein [Mass/Vol]7.0 g/dLNormal6.4-8.2[facility] Comment on above:Performed By: #### ACETON #### [facility] [address] [place] [address] Dr. Gasper GarberSodium [Moles/Vol]139 mmol/ARyhdyi636-070GcmSt. [facility]'S Hospital Comment on above:Performed By: #### ACETON #### [facility] [address] [place] [address] Dr. Gasper Aguayo nitrogen [Mass/Vol]46.0 mg/dLCritically high7.0-18.0St. [facility]'S HospitalComment on above:Performed By: #### ACETON #### [facility] [address] [place] [address] Dr. Gasper Aguayo nitrogen/Creatinine [Mass ratio]15.8 mg/mgNoOhioHealth Van Wert HospitalComment on above:Performed By: #### ACETON #### [facility] [address] [place] [address] Dr. Gasper Pulliam 64-60-8311YXN Coag (PPP) [Relative time]1.03 {INR} NormalSt. Anthony'S HospitalComment on above:Performed By: #### PT, PTT #### [facility] [address] [place] [address] Dr. Gasper Martino GUIDELINESSEE BELOWSheltering Arms HospitalComment on above:Result Comment: DESIRED INR: 2.0 - 3.0 CONDITIONS NOT LISTED BELOW 2.5 - 3.5 FOR PROSTHETIC HEART VALVE REPLACEMENT 2.5 - 3.5 RECURRENT THROMBOSIS Performed By: #### PT, PTT #### [facility] [address] [place] [address] Dr. Gasper GarberPT Coag (PPP) [Time]11.1 sNormal9.0-11.6ThOhioHealth Nelsonville Health Center Comment on above:Performed By: #### PT, PTT #### [facility] [address] [place] [address] Dr. Gasper Marino 35-57-3333aJFP Coag (Bld) [Time]24.2 rFtrpar50.3-36.2[facility] on above:Performed By: #### PT, PTT #### [facility] [address] [place] [address] Dr. Gasper Aguayo, HIGH SENSITIVITYon 98-17-7983QJSGDO62.9 pg/mLNormal 4.0-51.3The [facility] HospitalComment on above:Result Comment: CUT-OFF POINTS HAVE BEEN ESTABLISHED BASED ON THE FOURTH UNIVERSAL DEFINITIONS OF MYOCARDIAL INFARCTION. THE UPPER REFERENCE LIMIT (URL) OF TROPONIN, DEFINED THE 99TH PERCENTILE OF cTnI DISTRIBUTION IN A REFERENCE POPULATION, HAS BEEN CONFIRMED THE DECISION THRESHOLD FOR VT DIAGNOSIS.Performed By: #### LACT #### [facility] [address] [place] [address] Dr. Gasper Ackerman 23-86-9922SKE9.864 uIU/mLCritically high0.358-3.740St. Anthony'S HospitalComment on above:Performed By: #### ACETON #### [facility] [address] [place] [address] Dr. Gasper EDGAREE BELOWSheltering Arms HospitalComment on above: Result Comment: <0.34 UIU/ml HYPERTHYROID 0.34-5.60 UIU/ml EUTHYROID >5.60 UIU/ml HYPOTHYROIDPerformed By: #### ACETON #### [facility] [address] [place] [address] Dr. Gasper MAURICIOon 41-43-7233CBYMGDWBGHSFCAINOuoyoqicEOCJ SEENThe [facility]de Memorial HospitalComment on above:Performed By: #### BERNIE LESLIE #### [facility] [address] [place] [address] Dr. Gasper Crook identified Cx Nom (U)INDICATEDSheltering Arms HospitalComment on above:Performed By: #### TONI LESLIERO #### [facility] [address] [address] [address] Gasper JallohSEENAbnormalNONE SEENSt. Anthony'S HospitalComment on above: Performed By: #### ERUR, UMICRO #### [facility] [address] [address] [address] Gasper GarberCrystals LM Nom (Urine sed)NONE SEENNormalNONE SEENThe [facility] Memorial HospitalComment on above:Performed By: #### ERUR, UMICRO #### [facility] [address] [address] [address] Jackman ChangEpithelial cells LM Ql (Urine sed)RARENormalNONE SEEN /RAREThe [facility] HospitalComment on above:Performed By: #### ERUR, UMICRO #### [facility] [address] [address] [address] Gasper IbarraCOUSIZZY SEENNormalNONE SEENThe [facility] HospitalComment on above:Performed By: #### ERUR, UMICRO #### [facility] [address] [address] [address] Gasper LuqueONE SEENAbnormal0-2The [facility]de Memorial HospitalComment on above: Performed By: #### ERUEva, UMICRO #### [facility] [address] [address] [address] Gasper GarberWBC2-5AbnormalNONE SEENThe [facility] Memorial HospitalComment on above: Performed By: #### ERUR, UMICRO #### [facility] [address] [address] [address] Gasper GarberXR chest 1V portableon 37-42-5241LR chest 1V [facility] [place] [address] [place] [address] XRay Report Signed Patient: Rivka Turner MR#: [id number] : 1945 Acct:[id number] Age/Sex: 75 / F ADM Date: 06/24/21 Loc: Room: [address] [place] [address] Type: DIS IN Attending Dr: Rusty Amor [...] Valle Jr., M.D.07/01/2021 9:08 AM Dictation Location: [place] [address] Transcribed By: [facility] 07/01/21 0908 Dictated By: Adarsh Valle Jr, MD 07/01/21 0907 Signed By: 07/01/21 0908Chillicothe HospitalActivated partial thromboplastin time (aPTT) in platelet poor plasma by coagulation aOrdered By: Marlon Leon on 01-21-8292vJFZ Coag (PPP) [Time]24.8 s25.1-36.5FWadsworth-Rittman HospitalBasophils Auto (Bld) [#/Vol]Ordered By: Marlon Leon on 06-25-2021 Basophils (Bld) [#/Vol]0.0 10*3/uL0.0-0.2FWadsworth-Rittman Hospital Basophils/100 WBC Auto (Bld)Ordered By: Marlon Leon on 18-82-2702Actigicnm/100 WBC (Bld)0.3 %[facility] CampusBlood hemoglobin measurement (mass/volume)Ordered By: Marlon Leon on 16-03-7226Cyofczwdhj (Bld) [Mass/Vol] 11.1 g/dL11.8-15.4FWadsworth-Rittman HospitalBlood leukocytes automated count (number/volume)Ordered By: Marlon Leon on 31-82-1975JJG (Bld) [#/Vol]10.5 10*3/uL4.5-11.0[facility] CampusComplete Blood Count Auto Diffon 04-06-3750Iiwbxdejy (Bld) [#/Vol]0.0 10*3/uLNormal0.0-0.2FWadsworth-Rittman HospitalComment on above:Result Comment: PERFORMED BY: [facility] [address] [place] [address] PATHOLOGIST CUSTOMER EXPERT NARGIS CLEMENS M.D.Performed By: #### GLULS #### Point of Care testing ,Basophils/100 WBC (Bld)0.3 %Normal.[facility] CampusComment on above:Performed By: #### GLULS #### Point of Care testing ,Eosinophils (Bld) [#/Vol]0.0 10*3/uLNormal0.0-0.45[facility] CampusComment on above:Performed By: #### GLULS #### Point of Care testing ,Eosinophils/100 WBC (Bld)0.0 %Normal.[facility] CampusComment on above:Performed By: #### GLULS #### Point of Care testing ,Erythrocyte distribution width (RBC) [Ratio]12.7 %Tmqsda22.9-15.3FWadsworth-Rittman HospitalComment on above:Performed By: #### GLULS #### Point of Care testing ,Hematocrit (Bld) [Volume fraction]32.7 %Low34.0-46.4FWadsworth-Rittman HospitalComment on above:Performed By: #### GLULS #### Point of Care testing ,Hemoglobin (Bld) [Mass/Vol]11.1 g/dLLow11.8-15.4FWadsworth-Rittman HospitalComment on above:Performed By: #### GLULS #### Point of Care testing ,Lymphocytes (Bld) [#/Vol]0.4 10*3/uLLow1.00-4.8[facility] CampusComment on above:Performed By: #### GLULS #### Point of Care testing ,Lymphocytes/100 WBC (Bld)4.3 %Normal.[facility] CampusComment on above:Performed By: #### GLULS #### Point of Care testing ,MCH (RBC) [Entitic mass]31.3 jaSmhpox07.7-34.3FWadsworth-Ritt[facility] Hospital Comment on above:Performed By: #### GLULS #### Point of Care testing ,MCV (RBC) [Entitic vol]92.1 dTTshyrt88-844HmpqahsafSumma Health Akron Campus Comment on above:Performed By: #### GLULS #### Point of Care testing ,Mean Corpuscular HGB Conc34.0 g/dIJxyhjv65.0-35.0[facility] CampusComment on above:Performed By: #### GLULS #### Point of Care testing ,Monocytes (Bld) [#/Vol]0.5 10*3/uLNormal0.0-0.8[facility] CampusComment on above:Performed By: #### GLULS #### Point of Care testing ,Monocytes/100 WBC (Bld)4.5 %Normal.[facility] CampusComment on above:Performed By: #### GLULS #### Point of Care testing ,Neutrophils (Bld) [#/Vol]9.6 10*3/uLHigh1.8-7.7FWadsworth-Rittman HospitalComment on above:Performed By: #### GLULS #### Point of Care testing ,Neutrophils/100 WBC (Bld)90.9 %Normal.[facility] CampusComment on above:Performed By: #### GLULS #### Point of Care testing ,Nucleated RBC/100 WBC (Bld) [Ratio]0.0 %Normal0-0.5FWadsworth-Rittman HospitalComment on above:Performed By: #### GLULS #### Point of Care testing ,Platelet mean volume (Bld) [Entitic vol]9.0 fLNormal6.3-10.7FWadsworth-Rittman HospitalComment on above:Performed By: #### GLULS #### Point of Care testing ,Platelets (Bld) [#/Vol]205 10*3/sWXkipmi203-098MkfqlykvtSumma Health Akron CampusComment on above:Performed By: #### GLULS #### Point of Care testing ,RBC (Bld) [#/Vol]3.55 10*6/uLLow3.60-5.00[facility] Comment on above:Performed By: #### GLULS #### Point of Care testing ,WBC (Bld) [#/Vol]10.5 10*3/uLNormal4.5-11.0[facility] Comment on above:Performed By: #### GLULS #### Point of Care testing ,ECG 12 lead ECGon 49-73-9271UQC 12 lead ECGOHIOHEALTH [facility]ICKER[facility] [place] [address] Electrocardiograph Report Signed Patient: Rivka Turner MR#: [id number] : 1945 Acct:[id number] Age/Sex: 75 / F ADM Date: 06/24/21 Loc: Room: [address] [place] [address] Type: DIS IN Attending Dr: Rusty Amor [...] are now present Confirmed by SANG BARRIOS [facility], WIL ([id number]) on 06/25/2021 11:01:31 AM Referred By: Electronically Signed By:WIL DOMÍNGUEZ MD [facility] Transcribed By: MUS Signed By Wil Domínguez MD, FACC 06/25/[address] [place], [place] [address]Eosinophils Auto (Bld) [#/Vol]Ordered By: Marlon Leon on 94-38-7121Cecxuxdwohz (Bld) [#/Vol]0.0 10*3/uL 0.0-0.45[facility] CampusEosinophils/100 WBC Auto (Bld)Ordered By: Marlon Leon on 53-55-6044Mihvltepkzj/100 WBC (Bld)0.0 %[facility] CampusErythrocyte distribution width Auto (RBC) [Ratio]Ordered By: Marlon Leon on 02-29-1641Zkfrdamwvms distribution width (RBC) [Ratio]12.7 %11.9-15.3 [facility] CampusGlucose Glucometer (BldC) [Mass/Vol]Ordered By: Rusty Amor on 72-34-7741Ertjqvx [Mass/Vol]227 mg/dLSumma Health Akron CampusComment on above:Random Glucose Reference Range is dependent on time and content of last meal. Glucose of more than 200 mg/dL in a nonstressed, ambulatory subject supports the diagnosis of Diabetes Mellitus.Glucose Poct Glucometerson 71-34-1764Mxcymuv [Mass/Vol]227 mg/dLNoMercy HealthComment on above:Result Comment: Random Glucose Reference Range is dependent on time and content of last meal. Glucose of more than 200 mg/dL in a nonstressed, ambulatory subject supports the diagnosis of Diabetes Mellitus. PERFORMED BY: [place] [address] PATHOLOGIST CUSTOMER EXPERT NARGIS CLEMENS M.D.Performed By: #### PTT #### [facility] [address] [place] [address] USAGlucose [Mass/Vol]184 mg/dLNoMercy HealthComment on above:Result Comment: Random Glucose Reference Range is dependent on time and content of last meal. Glucose of more than 200 mg/dL in a nonstressed, ambulatory subject supports the diagnosis of Diabetes Mellitus. PERFORMED BY: [place] [address] PATHOLOGIST CUSTOMER EXPERT NARGIS CLEMENS M.D.Performed By: #### PTT #### [facility] [address] [place] [address] USAGlucose [Mass/Vol]294 mg/dLNormalSumma Health Akron CampusComment on above:Result Comment: Random Glucose Reference Range is dependent on time and content of last meal. Glucose of more than 200 mg/dL in a nonstressed, ambulatory subject supports the diagnosis of Diabetes Mellitus. PERFORMED BY: [facility] [address] [place] [address] PATHOLOGIST CUSTOMER EXPERT NARGIS CLEMENS M.D.Performed By: #### GLULS #### Point of Care testing ,Hematocrit Auto (Bld) [Volume fraction]Ordered By: Marlon Leon on 06-25-2021 Hematocrit (Bld) [Volume fraction]32.7 %34.0-46.4FWadsworth-Rittman HospitalLaboratory - CoagulationOrdered By: Marlon Leon on 79-79-6564OT Coag (PPP) [Time]11.5 s9.0-12.9[facility] CampusLaboratory - Hematology and Cell countsOrdered By: Marlon Leon on 35-93-1908Soqnxmgvt RBC/100 WBC (Bld) [Ratio]0.0 %0-0.5FWadsworth-Rittman HospitalLymphocytes Auto (Bld) [#/Vol] Ordered By: Marlon Leon on 55-10-1502Kcwqqycaiyk (Bld) [#/Vol]0.4 10*3/uL 1.00-4.8[facility] CampusLymphocytes/100 WBC Auto (Bld)Ordered By: Marlon Leon on 95-15-5033Ohbdzptatyj/100 WBC (Bld)4.3 %[facility] HospitalH Auto (RBC) [Entitic mass]Ordered By: Marlon Leon on 06-25-2021 MCH (RBC) [Entitic mass]31.3 pg24.7-34.3FWadsworth-Rittman HospitalMCHC Auto (RBC) [Mass/Vol]Ordered By: Marlon Leon on 68-89-6389CFJG (RBC) [Mass/Vol] 34.0 g/dL32.0-35.0[facility] CampusMCV Auto (RBC) [Entitic vol] Ordered By: Marlon Leon on 96-77-7762UBZ (RBC) [Entitic vol]92.1 hE95-605 [facility] CampusMonocytes Auto (Bld) [#/Vol]Ordered By: Marlon Leon on 62-95-3723Plcomsvlp (Bld) [#/Vol]0.5 10*3/uL0.0-0.8FirSelect Medical Specialty Hospital - Cleveland-FairhillMonocytes/100 WBC Auto (Bld)Ordered By: Marlon Leon on 06-25-2021 Monocytes/100 WBC (Bld)4.5 %[facility] CampusNeutrophils Auto (Bld) [#/Vol]Ordered By: Marlon Leon on 72-18-3590Dirwgwgftzu (Bld) [#/Vol]9.6 10*3/uL1.8-7.7FWadsworth-Rittman HospitalNeutrophils/100 WBC Auto (Bld) Ordered By: Marlon Leon on 97-16-1504Admpqwoedae/100 WBC (Bld)90.9 %[facility] CampusPartial Thromboplastin Timeon 21-92-4558gZTL Coag (Bld) [Time]24.8 sLow25.1-36.5FWadsworth-Rittman HospitalComment on above:Result Comment: PERFORMED BY: [facility] [address] [place] [address] PATHOLOGIST CUSTOMER EXPERT NARGIS CLEMENS M.D.Performed By: #### GLULS #### Point of Care testing ,Platelet mean volume Auto (Bld) [Entitic vol]Ordered By: Marlon Leon on 58-44-3659Mawwriiu mean volume (Bld) [Entitic vol]9.0 fL6.3-10.7FWadsworth-Rittman HospitalPlatelet poor plasma international normalized ratio (INR) by coagulation assay (relatOrdered By: Marlon Leon on 86-71-0686QMT Coag (PPP) [Relative time]1.0 {INR}[facility] CampusComment on above:INR Therapeutic Range A) Pre- and [...] Auto (Bld) [#/Vol]Ordered By: Marlon Leon on 25-54-7077Tvicdhfmd (Bld) [#/Vol]205 10*3/uL 150-450Sum[facility] CampusProgress Noteson 56-00-9389Fqnycwrbfeadn Authentication Interface Message TextEMERGENCY TRIAGE, TREAT AND TRANSPORT (ET3) DOCUMENTATION OF TELEHEALTH VISIT Date / Time: 06/23/20211929 Name: Rivka Turner : 1945 SSN: (Not on file) EMS Agency: [facility] [x] Verbal consent obtained [...] Reported: Same ET3 Encounter Completed by: Susu DiazAdams County [facility] Prothrombin Time INRon 10-04-1600CRZ Coag (PPP) [Relative time]1.0 {INR}Normal [facility] CampusComment on above:Result Comment: INR Therapeutic Range A) [...] of Care testing ,PT Coag (PPP) [Time]11.5 sNormal9.0-12.9[facility] Comment on above:Performed By: #### GLULS #### Point of Care testing ,RBC Auto (Bld) [#/Vol]Ordered By: Marlon Leon on 63-54-1338GRY (Bld) [#/Vol] 3.55 10*6/uL3.60-5.00[facility] CampusTroponin I High Sensitivityon 03-49-7634Flsyrbag I High Yjcmdcmieuq871 pg/mLOff scale high015 [facility] CampusComment on above:Result Comment: Critical value result called at 0638 on 06/25/21 PERFORMED BY: [place] [address] PATHOLOGIST CUSTOMER EXPERT NARGIS CLEMENS M.D.Performed By: #### PTT #### [place] [address] USATroponin I.cardiac [Mass/volume] in Serum or Plasma by High sensitivity methodOrdered By: Gen Bolivar on 35-27-2529Uorczjtd I.cardiac High sensitivity method [Mass/Vol]735 pg/mL0-15[facility] Comment on above:Critical value result called at 0638 on 06/25/21A1C with Estimated Average Gluon 90-85-1899Wqloggu [Mass/Vol] 160 mg/dLNormalSumma Health Akron CampusComment on above:Result Comment: PERFORMED BY: [facility] [place] [address] PATHOLOGIST CUSTOMER EXPERT NARGIS CLEMENS M.D.Performed By: #### GLULS #### Point of Care testing ,HbA1c (Bld) [Mass fraction]7.2 %High4.3-5.6FWadsworth-Ritt[facility] Hospital Comment on above:Result Comment: Increased risk for diabetes: 5.7 - 6.4 diabetes: >6.4 glycemic control for adults with diabetes: <7.0Performed By: #### GLULS #### Point of Care testing ,Albumin [Mass/volume] in Serum or PlasmaOrdered By: Marlon Leon on 06-24-2021 Albumin [Mass/Vol]3.1 g/dL3.2-5.5FWadsworth-Rittman HospitalCholesterol [Mass/volume] in Serum or PlasmaOrdered By: Marlon Leon on 94-68-2872Uzhfnzcanjh [Mass/Vol]128 mg/tJ176-698AdyrvaittSumma Health Akron CampusComment on above: Chol less than 200 mg/dl low risk Chol 201-239 mg/dl borderline risk Chol 240 mg/dl and greater high riskCholesterol in LDL Calc [Mass/Vol]Ordered By: Marlon Leon on 22-27-1601Gpsmcxnxamb in LDL [Mass/Vol]56 mg/dL0-100Sum[facility] CampusComment on above:LDL ATP III CLASSIFICATION LDL less than 100 mg/dL Optimal LDL 100-129 mg/dL Near or above optimal LDL 130-159 mg/dL Borderline high LDL 160-189 mg/dL High LDL greater than 189 mg/dL Very highCholesterol in VLDL Calc [Mass/Vol]Ordered By: Marlon Leon on 79-81-8139Tcramhywgpz in VLDL [Mass/Vol]13 mg/dLSumma Health Akron CampusComplete Blood Count Auto Diffon 78-87-1530Tsddncnel (Bld) [#/Vol]0.1 10*3/uLNormal0.0-0.2FWadsworth-Rittman HospitalComment on above:Result Comment: PERFORMED BY: [place] [address] PATHOLOGIST CUSTOMER EXPERT NARGIS CLEMENS M.D.Performed By: #### PTT #### [place] [address] USABasophils/100 WBC (Bld)0.8 %Normal.[facility] CampusComment on above:Performed By: #### PTT #### [place] [address] USAEosinophils (Bld) [#/Vol]0.2 10*3/uLNormal0.0-0.45 [facility] CampusComment on above:Performed By: #### PTT #### [place] [address] USAEosinophils/100 WBC (Bld)3.2 %Normal.[facility] CampusComment on above:Performed By: #### PTT #### [place] [address] USAErythrocyte distribution width (RBC) [Ratio]12.7 %Normal 11.9-15.3FWadsworth-Rittman HospitalComment on above:Performed By: #### PTT #### [place] [address] USAHematocrit (Bld) [Volume fraction]30.5 %Low34.0-46.4 [facility] CampusComment on above:Performed By: #### PTT #### [place] [address] USAHemoglobin (Bld) [Mass/Vol]10.4 g/dLLow11.8-15.4FWadsworth-Rittman HospitalComment on above:Performed By: #### PTT #### [place] [address] USALymphocytes (Bld) [#/Vol]1.8 10*3/uLNormal1.00-4.8 [facility] CampusComment on above:Performed By: #### PTT #### [facility] [address] [place] [address] USALymphocytes/100 WBC (Bld)27.4 %Normal.[facility] CampusComment on above:Performed By: #### PTT #### [facility] [address] (RBC) [Entitic mass]31.3 kgRaasss99.7-34.3FWadsworth-Rittman HospitalComment on above:Performed By: #### PTT #### [facility] [address] (RBC) [Entitic vol]92.0 tVYbiznz05-348MdpsosenxSumma Health Akron CampusComment on above:Performed By: #### PTT #### [facility] [address] [place] [address] USAMean Corpuscular HGB Conc34.1 g/hWWegwks75.0-35.0[facility] CampusComment on above:Performed By: #### PTT #### [facility] [address] [place] [address] USAMonocytes (Bld) [#/Vol]0.6 10*3/uLNormal0.0-0.8[facility] CampusComment on above:Performed By: #### PTT #### [facility] [address] [place] [address] USAMonocytes/100 WBC (Bld)8.9 %Normal.[facility] CampusComment on above:Performed By: #### PTT #### [facility] [address] [place] [address] USANeutrophils (Bld) [#/Vol]3.8 10*3/uLNormal1.8-7.7FWadsworth-Rittman HospitalComment on above:Performed By: #### PTT #### [facility] [address] [place] [id number] USANeutrophils/100 WBC (Bld)59.7 %Normal.[facility] CampusComment on above:Performed By: #### PTT #### [place] [address] USANucleated RBC/100 WBC (Bld) [Ratio]0.0 %Normal0-0.5 [facility] CampusComment on above:Performed By: #### PTT #### [place] [address] USAPlatelet mean volume (Bld) [Entitic vol]8.4 fLNormal 6.3-10.7FWadsworth-Rittman HospitalComment on above:Performed By: #### PTT #### [place] [address] USAPlatelets (Bld) [#/Vol]191 10*3/fNNbtszj337-474BcbzjmxauSumma Health Akron CampusComment on above:Performed By: #### PTT #### [place] [address] USARBC (Bld) [#/Vol]3.31 10*6/uLLow3.60-5.00[facility] CampusComment on above:Performed By: #### PTT #### [place] [address] USAWBC (Bld) [#/Vol]6.4 10*3/uLNormal4.5-11.0[facility] CampusComment on above:Performed By: #### PTT #### [place] [address] USAComprehensive Metabolic Panelon 95-38-4265Ltnjbbl [Mass/Vol]3.1 g/dLLow3.2-5.5FWadsworth-Rittman HospitalComment on above: Performed By: #### HS TROP, PT, PTT, CMP, PHOS, MG, LIPID #### [place] [address] USAAlbumin/Globulin [Mass ratio]1.2 {ratio}NormalSumma Health Akron CampusComment on above:Performed By: #### HS TROP, PT, PTT, CMP, PHOS, MG, LIPID #### [facility] [address] [place] [address] USAALP [Catalytic activity/Vol]57 U/MCxfldy51-87RcedyvjnrSumma Health Akron CampusComment on above:Performed By: #### HS TROP, PT, PTT, CMP, PHOS, MG, LIPID #### [facility] [address] [place] [address] USAALT [Catalytic activity/Vol]25 U/PQrilwf16-54UywyycskcSumma Health Akron CampusComment on above:Performed By: #### HS TROP, PT, PTT, CMP, PHOS, MG, LIPID #### [facility] [address] [place] [address] USAAST [Catalytic activity/Vol]20 U/ZSumzyo70-59HqkukohjrSumma Health Akron CampusComment on above:Performed By: #### HS TROP, PT, PTT, CMP, PHOS, MG, LIPID #### [facility] [address] [place] [address] USABilirubin [Mass/Vol]0.5 mg/dLNormal0.3-1.2FWadsworth-Rittman HospitalComment on above:Performed By: #### HS TROP, PT, PTT, CMP, PHOS, MG, LIPID #### [facility] [address] [place] [address] USACalcium [Mass/Vol]9.1 mg/dLNormal8.2-10.2FWadsworth-Rittman HospitalComment on above:Performed By: #### HS TROP, PT, PTT, CMP, PHOS, MG, LIPID #### [facility] [address] [place] [address] USAChloride [Moles/Vol]108 mmol/OHeowym72-396IgjauwsdhSumma Health Akron CampusComment on above:Performed By: #### HS TROP, PT, PTT, CMP, PHOS, MG, LIPID #### [facility] [address] [place] [address] USACO2 [Moles/Vol]25.1 mmol/SAobtkm01.0-30.0Sum[facility] Health Akron CampusComment on above:Performed By: #### HS TROP, PT, PTT, CMP, PHOS, MG, LIPID #### [facility] [address] [place] [address] USACreatinine [Mass/Vol]1.64 mg/dLHigh0.44-1.03Sum[facility] CampusComment on above:Performed By: #### HS TROP, PT, PTT, CMP, PHOS, MG, LIPID #### [facility] [address] [place] [address] USACreatinine Clr Calc Bybjawoz49.62NoMercy HealthComment on above:Performed By: #### HS TROP, PT, PTT, CMP, PHOS, MG, LIPID #### [facility] [address] [place] [address] USAEstimated GFR ( Jzfhjtt14GxxggxGrotuccxoChillicothe HospitalComment on above:Result Comment: GFR estimated reference range: According to KDOQI guidelines, <60 ml/min/1.73m2 is sufficient to diagnose a patient with chronic kidney disease.Performed By: #### HS TROP, PT, PTT, CMP, PHOS, MG, LIPID #### [facility] [address] [place] [address] USAEstimated GFR (Non- Vk40SlykgiCytzsqonzChillicothe HospitalComment on above:Performed By: #### HS TROP, PT, PTT, CMP, PHOS, MG, LIPID #### [facility] [address] [place] [address] USAGlobulin (S) [Mass/Vol]2.6 g/dLNoMercy HealthComment on above:Performed By: #### HS TROP, PT, PTT, CMP, PHOS, MG, LIPID #### [facility] [address] [place] [address] USAGlucose [Mass/Vol]65 mg/lDNfs43-756RuysmxzauSumma Health Akron CampusComment on above:Result Comment: Random Glucose Reference Range is dependent on time and content of last meal. Glucose of more than 200 mg/dL in a nonstressed, ambulatory subject supports the diagnosis of Diabetes Mellitus. ADA recommended reference rangePerformed By: #### HS TROP, PT, PTT, CMP, PHOS, MG, LIPID #### [facility] [address] [place] [address] USAPotassium [Moles/Vol]4.1 mmol/LNormal3.5-5.1FWadsworth-Rittman HospitalComment on above:Performed By: #### HS TROP, PT, PTT, CMP, PHOS, MG, LIPID #### [facility] [address] [place] [address] USAProtein [Mass/Vol]5.7 g/dLLow6.1-7.9Summa Health Akron CampusComment on above:Performed By: #### HS TROP, PT, PTT, CMP, PHOS, MG, LIPID #### [facility] [address] [place] [address] USASodium [Moles/Vol]140 mmol/PSemizz613-435UbdgmaswmSumma Health Akron CampusComment on above:Performed By: #### HS TROP, PT, PTT, CMP, PHOS, MG, LIPID #### [facility] [address] [place] [address] USAUrea nitrogen [Mass/Vol]27 mg/dLHigh9-23Summa Health Akron CampusComment on above:Performed By: #### HS TROP, PT, PTT, CMP, PHOS, MG, LIPID #### [facility] [address] [place] [address] USACreatinine and Glomerular filtration rate.predicted panel (S/P/Bld)Ordered By: Marlon Leon on 34-17-0113Nndmgpigua [Mass/Vol]1.64 mg/dL 0.44-1.03Summa Health Akron CampusECG 12 lead ECGon 72-90-5105BKW 12 lead ECGOHIOHEALTH [facility] [place] [address] [place] [address] Electrocardiograph Report Signed Patient: Rivka Turner MR#: [id number] : 1945 Acct:[id number] Age/Sex: 75 / F ADM Date: 06/24/21 Loc: Room: [address] [place] [address] Type: DIS IN Attending Dr: Rusty Amor [...] Referred By: Electronically Signed By:WIL DOMÍNGUEZ MD [facility] Transcribed By: MUS Signed By Wil Domínguez MD, FACC 06/25/21 1101Chillicothe HospitalEC 12 lead [facility] [place] [address] Electrocardiograph Report Signed Patient: Rivka Turner MR#: [id number] : 1945 Acct:[id number] Age/Sex: 75 / F ADM Date: 06/24/21 Loc: Room: [address] [place] [address] Type: DIS IN Attending Dr: Rusty Amor [...] By: MUS Signed By Wil Domínguez MD, [facility] 06/24/21 1001NoMercy HealthECH echo transthoracicon 88-55-8166ABK echo transthoracicOHIOHEALTH [facility]ICK[facility] [place] [address] Echocardiogram Signed Patient: Rivka Turner MR#: [id number] : 1945 Acct:[id number] Age/Sex: 75 / F ADM Date: 06/24/21 Loc: Room: [address] [place] [address] Type: DIS IN Attending Dr: Rusty Amor MD Ordering Provider: Marlon Leon DO, RES Date of Service: 06/24/2108/10/602 ECH/ECH echo transthoracic: NSTEMI Copies to: Marlon Leon DO, JOSE DE JESUS Domínguez MD, [facility] A : 1945 Gender: Female (MM/DD/YYYY) [...] Frazier. : : MD SANG, : : [facility] : : : : on: 06/24/2021, 11:11 : : AM : : : Transcribed By: SCAnita Performed At: 06/24/21 0944 Signed By: Wil Domínguez MD, [facility] 06/24/21 1111Chillicothe HospitalEstimated glomerular filtration rate (GFR) non- Ordered By: Marlon Leon on 99-79-1500YQQ/1.73 sq M.predicted among non-blacks MDRD (S/P/Bld) [Vol rate/Area]31 mL/MinSumma Health Akron CampusGlobulin Calc (S) [Mass/Vol]Ordered By: Marlon Leon on 32-37-3263Gpjchtcp (S) [Mass/Vol] 2.6 g/dLSumma Health Akron CampusGlucose Poct Glucometerson 06-24-2021 Glucose [Mass/Vol]322 mg/dLChillicothe HospitalComment on above:Result Comment: Random Glucose Reference Range is dependent on time and content of last meal. Glucose of more than 200 mg/dL in a nonstressed, ambulatory subject supports the diagnosis of Diabetes Mellitus. PERFORMED BY: [place] [address] PATHOLOGIST CUSTOMER EXPERT NARGIS CLEMENS M.D.Performed By: #### GLULS #### Point of Care testing ,Knqgqqx2Wgs8: Cleaned MeterChillicothe HospitalComment on above:Result Comment: PERFORMED BY: [address] [place] [id number] PATHOLOGIST CUSTOMER EXPERT NARGIS CLEMENS M.D.Performed By: #### GLULS #### Point of Care testing ,Glucose [Mass/Vol]87 mg/dLNoMercy HealthComment on above:Result Comment: Random Glucose Reference Range is dependent on time and content of last meal. Glucose of more than 200 mg/dL in a nonstressed, ambulatory subject supports the diagnosis of Diabetes Mellitus.Performed By: #### GLULS #### Point of Care testing ,Glucose [Mass/Vol]139 mg/dLNoMercy HealthComment on above:Result Comment: Random Glucose Reference Range is dependent on time and content of last meal. Glucose of more than 200 mg/dL in a nonstressed, ambulatory subject supports the diagnosis of Diabetes Mellitus. PERFORMED BY: [place] [address] PATHOLOGIST CUSTOMER EXPERT NARGIS CLEMENS M.D.Performed By: #### PTT #### [address] [address] USAGlucose mean value [Mass/volume] in Blood Estimated from glycated hemoglobinOrdered By: Marlon Leon on 67-98-6052Bcoibvc glucose Estimated from glycated hemoglobin (Bld) [Mass/Vol]160 mg/dLSumma Health Akron CampusHemoglobin A1c percentageOrdered By: Marlon Leon on 06-24-2021 HbA1c (Bld) [Mass fraction]7.2 %4.3-5.6FWadsworth-Rittman HospitalComment on above:Increased risk for diabetes: 5.7 - 6.4 diabetes: >6.4 glycemic control for adults with diabetes: <7.0Laboratory - Chemistry and Chemistry - challengeOrdered By: Marlon Leon on 83-39-5753Nfrdqhvfv [Mass/Vol] 2.4 mg/dL1.6-2.6FWadsworth-Rittman HospitalLipid Panelon 06-24-2021 Cholesterol [Mass/Vol]128 mg/sEHlu990-144CpwffwmwgSumma Health Akron Campus Comment on above:Result Comment: Chol less than 200 mg/dl low risk Chol 201-239 mg/dl borderline risk Chol 240 mg/dl and greater high riskPerformed By: #### HS TROP, PT, PTT, CMP, PHOS, MG, LIPID #### [facility] [address] [place] [address] USACholesterol in HDL [Mass/Vol]58 mg/nRQrtzqe67-77JjmdldvmkSumma Health Akron CampusComment on above:Result Comment: HDL CHOL ATP-III CLASSIFICATION Cardiovascular Risk HDL > or equal to 60 mg/dL LOW HDL < 40 mg/dL HIGHPerformed By: #### HS TROP, PT, PTT, CMP, PHOS, MG, LIPID #### [facility] [address] [place] [address] USACholesterol.total/Cholesterol in HDL [Mass ratio]2.2 {ratio}Normal<5.0Summa Health Akron CampusComment on above:Result Comment: PERFORMED BY: [facility] [address] [place] [address] PATHOLOGIST CUSTOMER EXPERT NARGIS CLEMENS M.D.Performed By: #### HS TROP, PT, PTT, CMP, PHOS, MG, LIPID #### [facility] [address] [place] [address] USALDL Cholesterol,Wzsodlutkm41 mg/dLNormal0-100Summa Health Akron CampusComment on above:Result Comment: LDL ATP III CLASSIFICATION LDL less than 100 mg/dL Optimal LDL 100-129 mg/dL Near or above optimal LDL 130-159 mg/dL Borderline high LDL 160-189 mg/dL High LDL greater than 189 mg/dL Very highPerformed By: #### HS TROP, PT, PTT, CMP, PHOS, MG, LIPID #### [facility] [address] [place] [address] USATriglyceride w/Xymxps04 mg/mIBiuykd45-170GwkpnceemSumma Health Akron CampusComment on above:Result Comment: TRIG ATP III CLASSIFICATION TRIG less than 150 mg/dL Normal TRIG 150-199 mg/dL Borderline high TRIG 200-500 mg/dL High TRIG greater than 500 mg/dL Very high Standard traceable to the Center for Disease Conrtrol and Prevention (CDC) test method.Performed By: #### HS TROP, PT, PTT, CMP, PHOS, MG, LIPID #### [facility] [address] [place] [address] USAVLDL AUUWEIUSQIV85 mg/dLNormSelect Medical Specialty Hospital - Cincinnati NorthComment on above:Performed By: #### HS TROP, PT, PTT, CMP, PHOS, MG, LIPID #### [place] [address] USAMagnesiumon 96-60-0439Qczpqeqtf [Mass/Vol]2.4 mg/dLNormal 1.6-2.6FWadsworth-Rittman HospitalComment on above:Performed By: #### HS TROP, PT, PTT, CMP, PHOS, MG, LIPID #### [place] [address] USANo Panel InformationOrdered By: Rusty Amor on 46-40-3545Mbvhdqa Glucose CommentGlu2: cleaned meterSumma Health Akron CampusNo Panel InformationOrdered By: Marlon Leon on 06-57-1350Pfuqqpzos GFR ()37 mL/MinSumma Health Akron CampusComment on above:GFR estimated reference range: According to KDOQI guidelines, <60 ml/min/1.73m2 is sufficient todiagnose a patient with chronic kidney disease.Pharmacy Creatinine Clearance (Chem33.62Summa Health Akron CampusPartial Thromboplastin Time on 73-20-4914uCNI Coag (Bld) [Time]43.4 sHigh25.1-36.5FWadsworth-Rittman HospitalComment on above:Order Comment: draw both at 11:35 with per Shahnaz martin Result Comment: PERFORMED BY: [place] [address] PATHOLOGIST CUSTOMER EXPERT NARGIS CLEMENS M.D.Performed By: #### PTT #### [place] [address] USAaPTT Coag (Bld) [Time]35.4 wGlwjmm27.1-36.5FWadsworth-Rittman HospitalComment on above:Result Comment: PERFORMED BY: [place] [address] PATHOLOGIST CUSTOMER EXPERT NARGIS CLEMENS M.D.Performed By: #### HS TROP, PT, PTT, CMP, PHOS, MG, LIPID #### [place] [address] USAPhosphate [Mass/volume] in Serum or PlasmaOrdered By: Marlon Leon on 03-22-5114Swwekqxqn [Mass/Vol]3.5 mg/dL2.5-4.6FWadsworth-Rittman HospitalPhosphoruson 11-40-4034Xonzfeesw [Mass/Vol]3.5 mg/dLNormal2.5-4.6 [facility] Akron CampusComment on above:Performed By: #### HS TROP, PT, PTT, CMP, PHOS, MG, LIPID #### [facility] [address] [place] [id number] USAProtein [Mass/volume] in Serum or PlasmaOrdered By: Marlon Leon on 87-19-8665Lmneuhr [Mass/Vol]5.7 g/dL6.1-7.9Summa Health Akron CampusProthrombin Time INRon 38-03-0689ZMS Coag (PPP) [Relative time]1.0 {INR} NormalSumma Health Akron CampusComment on above:Result Comment: INR Therapeutic Range A) [...] PT, PTT, CMP, PHOS, MG, LIPID #### [facility] [address] [place] [address] USAPT Coag (PPP) [Time]11.7 sNormal9.0-12.9Summa Health Akron CampusComment on above:Performed By: #### HS TROP, PT, PTT, CMP, PHOS, MG, LIPID #### [facility] [address] [place] [address] USASerum or plasma alanine aminotransferase measurement without P-5'-P (enzymatic activiOrdered By: Marlon Leon on 87-92-8470YXE No additional P-5'-P [Catalytic activity/Vol]25 U/S80-23EuyodjuyvBlanchard Valley Health Systemerum or plasma albumin/globulin mass ratioOrdered By: Marlon Leon on 47-10-4362Azxihet/Globulin [Mass ratio]1.2 {ratio}[facility] Health Systemerum or plasma alkaline phosphatase measurement (enzymatic activity/volume)Ordered By: Marlon Leon on 98-56-5283DSL [Catalytic activity/Vol]57 U/V45-29SstbimqjsBlanchard Valley Health Systemerum or plasma aspartate aminotransferase measurement (enzymatic activity/volume)Ordered By: Marlon Leon on 99-19-6906FYK [Catalytic activity/Vol]20 U/Y55-12XeezfuipyBlanchard Valley Health Systemerum or plasma calcium measurement (mass/volume)Ordered By: Marlon Leon on 22-26-4162Lzkizgb [Mass/Vol]9.1 mg/dL8.2-10.2FMount St. Mary Hospitalerum or plasma chloride measurement (moles/volume) Ordered By: Marlon Leon on 78-81-3109Xchtmmjd [Moles/Vol]108 mmol/L95-114 [facility] Health Systemerum or plasma glucose measurement (mass/volume)Ordered By: Marlon Leon on 24-90-7505Gpsxlfp [Mass/Vol]65 mg/dL 70-100Summa Health Akron CampusComment on above:ADA recommended reference range Random Glucose Reference Range is dependent on time and content of last meal. Glucose of more than 200 mg/dL in a nonstressed, ambulatory subject supports the diagnosis of Diabetes Mellitus.Serum or plasma high density lipoprotein (HDL) cholesterol measurementOrdered By: Marlon Leon on 02-68-0926Xjbitddghbr in HDL [Mass/Vol]58 mg/rD34-95RzuiltvjuSumma Health Akron CampusComment on above:HDL CHOL ATP-III CLASSIFICATION Cardiovascular Risk HDL > or equal to 60 mg/dL LOW HDL < 40 mg/dL HIGHSerum or plasma potassium measurement (moles/volume)Ordered By: Marlon Leon on 44-39-8586Vcfmdpysa [Moles/Vol]4.1 mmol/L3.5-5.1FMount St. Mary Hospitalerum or plasma sodium measurement (moles/volume)Ordered By: Marlon Leon on 32-63-4909Kjcbxj [Moles/Vol]140 mmol/G078-695DgnngvofqBlanchard Valley Health Systemerum or plasma total bilirubin measurement (mass/volume) Ordered By: Marlon Leon on 94-58-4691Nseytuubc [Mass/Vol]0.5 mg/dL0.3-1.2 [facility] Health Systemerum or plasma total carbon dioxide measurement (moles/volume)Ordered By: Marlon Leon on 29-08-3823RS6 [Moles/Vol] 25.1 mmol/L22.0-30.0Blanchard Valley Health Systemerum or plasma total cholesterol/high density lipoprotein (HDL) cholesterol mass ratOrdered By: Marlon Leon on 73-39-8554Krpzdwglbda.total/Cholesterol in HDL [Mass ratio]2.2 {ratio} [facility] Health Systemerum or plasma urea nitrogen measurement (mass/volume)Ordered By: Marlon Leon on 33-64-6532Jtyf nitrogen [Mass/Vol]27 mg/dL9-23Summa Health Akron CampusTriglyceride [Mass/volume] in Serum or PlasmaOrdered By: Marlon Leon on 59-39-6087Zrstdsduflhg [Mass/Vol]69 mg/dL 35-149Summa Health Akron CampusComment on above:TRIG ATP III CLASSIFICATION TRIG less than 150 mg/dL Normal TRIG 150-199 mg/dL Borderline high TRIG 200-500 mg/dL High TRIG greater than 500 mg/dL Very high Standard traceable to the Center for Disease Conrtrol and Prevention (CDC) test method.Troponin I High Sensitivityon 30-03-1748Otewwyhn I High Zvsvfedhywz602 pg/mLOff scale [address] StreetComment on above:Order Comment: draw both at 11:35 with per Shahnaz Kumari Comment: Critical value result called at 1246 on 06/24/21 PERFORMED BY: [facility] [place] [address] PATHOLOGIST CUSTOMER EXPERT NARGIS CLEMENS M.D.Performed By: #### GLULS #### Point of Care testing ,Troponin I High Hcovofzyuyb8981 pg/mLOff scale [address] StreetComment on above:Result Comment: Results called at 0635 on 06/24/21 PERFORMED BY: [facility] [address] [place] [address] PATHOLOGIST CUSTOMER EXPERT NARGIS CLEMENS M.D.Performed By: #### HS TROP, PT, PTT, CMP, PHOS, MG, LIPID #### [facility] [address] [place] [id number] [facility] CENTERCNOV 06-24-6088VPLXEwwfjz Visit (VASSFT) --------RIVKA TURNER ([id number]) 1945 FDa Time Provider Department09/19/17 11:30 AM ROSIE MELLO During your visit today, we recorded the following information about you: Pulse Respiration Blood pressure Weight 52/minute 16/minute 115/46 93.4 kg Height 1.626 Margarita Mello MD 09/19/2017 11:59 AM [facility] InstituteRobsan [facility] Department of Cardiovascular MedicineOUTPATIENT VISIT DATE September 19, 2017OUTPATIENT VISIT TYPENEWPRIMARY CARE PHYSICIAN:Amador Abdalla MD ([facility])[address], [place] [address]Ayrno: [phone]: [phone] PAYAM Wilkins MD[address] [address]DRBND COMPLAINT:No chief complaint on file.HISTORY OF PRESENT [...] s/p PCI. On ASA, statin.HUMBERTO/PVR performed at [facility], right 0.94, left 1.14.PAST MEDICAL HISTORYDiagnosis Date- [...] Prochlorperazine UnknownMEDICATIONS:medical supply, m iscellaneous (COMMODE [facility]) USE DIRECTEDVENTOLIN HFA 90 mcg/actuation inhaleramLODIPine (NORVASC) 10 mg tablet Take 1 tablet by mouth once daily.atorvastatin (LIPITOR) 40 mg tablet Take 1 tablet by mouth daily at bedtime.Spring[employer]UCH ULTRA BLUE TEST STRIP test strip twice daily. TEST TWICE DAILY [employer] ULTRA2 monitoring kit twice daily. TEST TWICE DAILYSTOOL SOFTENER 100 mg capsule Take 100 mg by mouth once daily.fluticasone (FLONASE) 50 mcg/actuation nasal sprayfurosemide (LASIX) 40 mg tablet Take 1 tablet by mouth once daily.glipiZIDE (GLUCOTROL) 10 mg tablet Take 2 tablets by mouth once daily.hydrALAZINE (APRESOLINE) 50 mg tablet Take 1 tablet by mouth twice daily.ONETOUCH DELICA LANCETS [address] [facility] centerc twice daily. TEST TWICE DAILYlosartan-hydrochlorothiazide (HYZAAR) 100-25 [...] Wilkins of podiatry.Beverley Wild Provider: TURNER WILKINS [[id number]]Allergies As of Date: 09/19/2017 Noted Allergy ReactionCLINDAMYCIN [...] mellitus (HCC) [E11.42] PAD (peripheral artery disease) ([facility]) [I73.9]Prescriptions as of 09/19/2017 Sig: COMMODE PAIL [...] to improve.Follow-up and Disposition History RecordedEncounter Number: [id number] Status:Closed by ROSIE MELLO MD on09/19/17NoChillicothe VA Medical Center 88-58-8866Lfufhue mass concHNO ID: [id number]: Rosie MelloSer: (none)Author Type: PhysicianType: Progress NotesFiled: 09/19/2017 11:59 AMNote Text:[facility] and V[facility] InstituteNewport Beach and [facility]unc [facility] Department of Cardiovascular MedicineOUTPATIENT VISIT DATE September 19, 2017OUTPATIENT VISIT TYPENEWPRIMARY CARE PHYSICIAN:Amador Abdalla MD ([facility])[address], [place] [address]Ujvjd: [phone]: [phone] PHYSICIANChrisyi Wilkins MD[address] [place] [address]HQAPR COMPLAINT:No chief complaint on file.HISTORY OF PRESENT [...] s/p PCI. On ASA, statin.HUMBERTO/PVR performed at [facility], right 0.94, left 1.14.PAST MEDICAL HISTORYDiagnosis Date- [...] Penicillins Rash- Prochlorperazine UnknownMEDICATIONS:medical supply, miscellaneous ([facility] USE DIRECTEDVENTOLIN HFA 90 [...] up with Dr Wilkins of podiatry.Rosie Mello MDNormalCGreene Memorial Hospital Vital Signs Date TimeVital SignValuePerforming JuselgppgOeeetlyg83-93-9148 14:26-0400Body bgijrm828.6 Cisco Cueva MD Work Phone: [facility] [employer] Hgltrd31-47-0101 14:26-0400Body mass index (BMI) [Ratio]30.55 kg/f7MxkrxaKirby Cueva MD Work Phone: [facility]10-22-2025 14:26-0400Body szpuitfsypa51.69 [degF]Kirby Cueva MD Work Phone: [phone] [place], [place] 9[address]010-22-2025 14:26-0400Body vccdaw27.74 kgKirby Cueva MD Work Phone: [phone] [place] [address] [employer] Epzjdz70-51-9273 12:25-0400Body bebfiheusde97.4 [degF]Yasmin Goodrich MD Work Phone: [phone] [place] [address] [employer] Uzvmct11-44-6367 12:25-0400Diastolic blood zkehlgby63 mm[Hg]Yasmin Goodrich MD Work Phone: [phone])[facility] [place], [place] [address]10-13-2025 12:25-0400Heart rate 62 /Mich Goodrich MD Work Phone: [phone] [place] [address] [employer] Oqrqiz81-08-0118 12:25-0400 Respiratory rate16 /Mich Goodrich MD Work Phone: [phone] [place] [address] [employer] Gldgzf47-17-1740 12:25-3059HzO9% (BldA) [Mass fraction]98 %Yasmin Goodrich MD Work Phone: [phone])[facility] [place], [place] [address]10-13-2025 12:25-0400Systolic blood fykqriyb370 mm[Hg]Yasmin Goodrich MD Work Phone: [phone] StreetCardiva Medical Uejsct99-29-3336 05:18-0400Body mass index (BMI) [Ratio]30.69 kg/p4HbumhYasmin Goodrich MD Work Phone: [phone] [place] [address] [employer] Hejxho39-06-2859 05:18-0400Body afdxan58.1 kgYasmin Goodrich MD Work Phone: [facility]10-09-2025 10:11-0400Body rydnfy851.6 Lashon Goodrich MD Work Phone: [facility]07-17-2025 16:38-0400Body zthsyc910.5 cmTurner Wilkins DPM Work Phone: [facility] HospitalMcvirkuiip58-65-4411 16:38-0400Body mass index (BMI) [Ratio]30.18 kg/p7GgqzdoiwTurner Wilkins DPM Work Phone: [facility] HospitalZclwdvcxac12-02-0160 16:38-0400Body gldezr78.84 kgTurner Wilkins DPM Work Phone: [facility] HospitalYffkmsfhpo99-76-4288 16:38-0400Respiratory rate18 /minTurner Wilkins DPM Work Phone: [facility] HospitalSfbfltvkcr26-53-2345 13:45-0400Body .5 cmAmador Abdalla MD Work Phone: [facility] HospitalCxzvrossor67-67-6896 13:45-0400Body mass index (BMI) [Ratio]30.18 kg/m2Amador Abdalla MD Work Phone: [facility] HospitalJhzzpmdeez82-38-0914 13:45-0400Body temperature 97.5 [degF]Amador Abdalla MD Work Phone: [facility] HospitalSwzsewejev70-70-3511 13:45-0400Body ulrhxf84.84 kgAmador Abdalla MD Work Phone: [facility] HospitalEkoehevnop83-05-6399 13:45-0400Diastolic blood jrykjrug43 mm[Hg]Amador Abdalla MD Work Phone: [facility] HospitalQhabhupcyo06-67-7158 13:45-0400Heart rate67 /min Amador Abdalla MD Work Phone: [facility] HospitalXjuhofqtil11-38-3651 13:45-0400Respiratory rate20 /minAmador Abdalla MD Work Phone: [facility] HospitalVlysrulnsw20-32-9000 13:45-6677FwA3% (BldA) [Mass fraction]97 %Amador Abdalla MD Work Phone: [facility] HospitalIpawjqtmws23-26-5469 13:45-0400Systolic blood utbsznyk340 mm[Hg]Amador Abdalla MD Work Phone: [facility] HospitalIfzygtkmol20-46-5750 16:44-0400Body sngnoe607.5 cmStanleyjayna Wilkins DPM Work Phone: [facility] HospitalXkhvlirhlg93-72-8740 16:44-0400Body mass index (BMI) [Ratio]31.83 kg/m9Oyvzmtadjayna Wilkins DPM Work Phone: [facility] HospitalFvimirxbus64-17-7353 16:44-0400Body ankhjo36.93 kgStanleyjayna Wilkins DPM Work Phone: [facility] HospitalZstwhakdrx81-45-5050 16:44-0400Respiratory rate16 /minStanleyjayna Wilkins DPM Work Phone: [facility] HospitalHsvrwmgmmf94-19-5506 11:13-0400Body teosra302.5 cmAmador Abdalla MD Work Phone: [facility] HospitalNbblcloeyd88-89-3661 11:13-0400Body mass index (BMI) [Ratio]31.83 kg/m2Amador Abdalla MD Work Phone: [facility] HospitalUlbrhjxjdi69-85-9097 11:13-0400Body temperature 96.4 [degF]Amador Abdalla MD Work Phone: [facility] HospitalDwgklyuhji06-23-7744 11:13-0400Body wkwixl80.93 kgAmador Abdalla MD Work Phone: [facility] HospitalVuoowkjhjh85-46-0390 11:13-0400Diastolic blood qsbxqxaa82 mm[Hg]Aamdor Abdalla MD Work Phone: [facility] HospitalYbyjcjwqct85-12-0049 11:13-0400Heart rate79 /min Amador Abdalla MD Work Phone: [facility] HospitalEonjfzscos71-15-3364 11:13-0400Respiratory rate22 /minDaisyc John BARRIOS Work Phone: [facility] HospitalZrvcpndidn14-42-2380 11:13-0667TtF7% (BldA) [Mass fraction]94 %Amador Abdalla MD Work Phone: [facility] HospitalQcwawigqmx55-04-8106 11:13-0400Systolic blood xbkxzygl578 mm[Hg]Amador Abdalla MD Work Phone: [facility] HospitalOabyzvgati03-81-3454 08:18-0400Body mass index (BMI) [Ratio]30.93 kg/u0Rytlkc Furlong DO Work Phone: [facility] [employer] Movblx00-68-9247 08:18-0400Body dmlmjxdbtuf96.5 [degF]Boby Varnerng DO Work Phone: [facility]03-25-2025 08:18-0400Body qysbsd17.74 kgDenbianka Varnerng DO Work Phone: [facility] [employer] Dpyvfj15-16-2128 08:18-0400Diastolic blood mhbhepba90 mm[Hg]Boby Varnerng DO Work Phone: [facility]03-25-2025 08:18-0400Heart rate 67 /Bam Joneslong DO Work Phone: [facility]03-25-2025 08:18-0400 Respiratory rate16 /minDennis Karenlong DO Work Phone: [facility]03-25-2025 08:18-3688TzB4% (BldA) [Mass fraction]93 %Boby Joneslong DO Work Phone: [facility]03-25-2025 08:18-0400Systolic blood jlejcrtb494 mm[Hg]Boby Joneslong DO Work Phone: [facility] [employer] Gzmrdy41-60-3328 14:42-0400Body oawrzi310.6 cmDenbianka Joneslong DO Work Phone: [facility] Cikent23-84-1733 14:42-0400Body mass index (BMI) [Ratio]32.03 kg/d1Uenwio Furlong DO Work Phone: [facility] Zajlee01-45-8088 14:42-0400Body vsqlezdzzfb94.39 [degF]Boby Karenlong DO Work Phone: [facility]03-18-2025 14:42-0400Body wpliyn36.64 kgDennis Karenlong DO Work Phone: [facility]03-18-2025 14:42-0400Diastolic blood phdbjyyd84 mm[Hg]Boby Joneslong DO Work Phone: [facility] Moymxf38-61-5419 14:42-0400Heart rate 79 /Bam Joneslong DO Work Phone: [facility]03-18-2025 14:42-0400 Respiratory rate16 /Anneis Karenlong DO Work Phone: [facility]03-18-2025 14:42-0179XpG1% (BldA) [Mass fraction]92 %Boby Joneslong DO Work Phone: [facility] Xsyzeq11-39-4350 14:42-0400Systolic blood fkeqvcle943 mm[Hg]Boby Joneslong DO Work Phone: [facility] Gzhjtu96-21-3901 10:49-0400Body geionctuqmp61.81 [degF]Boby Joneslong DO Work Phone: [facility] Mhkjpu18-32-8935 10:49-0400Body legozo63.64 kgDenbianka Joneslong DO Work Phone: [facility] Lupufj73-66-5153 10:49-0400Diastolic blood mm[Hg]Boby Joneslong DO Work Phone: [facility] Fcdoit88-07-9291 10:49-0400Heart rate 88 /minDramyais Furlong DO Work Phone: [facility] Mvgnqn15-92-6659 10:49-0400 Respiratory rate16 /minDennis Furlong DO Work Phone: [facility] [employer] Dzkhtf83-25-7251 10:49-0344YzT1% (BldA) [Mass fraction]98 %Boby Furlong DO Work Phone: [facility] [employer] Mjqsad25-06-7643 10:49-0400Systolic blood cbginbmp519 mm[Hg]Boby Furlong DO Work Phone: [facility] [employer] Qmbycr21-40-1370 13:26-0500Body kwpors973.6 cmSlicknis Karenlong DO Work Phone: [facility] [employer] Djgcdw62-63-9417 13:26-0500Body mass index (BMI) [Ratio]32.79 kg/a9Fudhyy Furlong DO Work Phone: [facility] [employer] Tvcxrg25-62-4791 13:26-0500Body ksjjfbinmmk70.7 [degF]Boby Joneslong DO Work Phone: [facility] [employer] Kevpng42-65-3801 13:26-0500Body ffoqoi84.64 kgDenbianka Joneslong DO Work Phone: [facility] [employer] Ypbutf50-94-9041 13:26-0500Diastolic blood pqhuflqf48 mm[Hg]Bobybianka Joneslong DO Work Phone: [facility] [employer] Mwuylf35-37-8074 13:26-0500Heart rate 72 /Anneis Furlong DO Work Phone: [facility] Bpxcsi78-05-7690 13:26-0500 Respiratory rate18 /minDramyais Karenlong DO Work Phone: [facility] Nuzpjx56-81-5343 13:26-0596BqU4% (BldA) [Mass fraction]94 %Bobybianka Joneslong DO Work Phone: [facility]03-07-2025 13:26-0500Systolic blood umsgpbns581 mm[Hg]Boby Earl DO Work Phone: [facility]01-10-2025 11:47-0500Body ypozhw270.5 cmAmador Abdalla MD Work Phone: [facility] HospitalPajukkuest26-94-1560 11:47-0500Body mass index (BMI) [Ratio]33.47 kg/m2Amador Abdalla MD Work Phone: [facility] HospitalOxbyrjzukg08-90-0567 11:47-0500Body temperature 97.11 [degF]Amador Abdalla MD Work Phone: [facility] HospitalXafbnnomuc07-47-1356 11:47-0500Body ebkohk68.01 kgAmador Abdalla MD Work Phone: [facility] HospitalNoozajqbfc73-62-1922 11:47-0500Diastolic blood yzsdtmdi89 mm[Hg]Amador Abdalla MD Work Phone: [facility] HospitalQthrdgfdts61-30-1813 11:47-0500Heart rate77 /min Amador Abdalla MD Work Phone: [facility] HospitalLhgxrugkfz76-49-1554 11:47-0500Respiratory rate22 /minAmador Abdalla MD Work Phone: [facility] HospitalZqhvvauncj94-04-0504 11:47-4851PuY0% (BldA) [Mass fraction]97 %Amador Abdalla MD Work Phone: noSS[facility] CenterPmpzbrrmeg29-70-5987 11:47-0500Systolic blood lfyvripo053 mm[Hg]Amador Abdalla MD Work Phone: [facility] HospitalJmqhrcimnl30-22-6966 10:05-0500Body aanjyw044.5 cmTurner Wilkins DPM Work Phone: noSS[facility] CenterRgevoubhlr84-47-2934 10:05-0500Body mass index (BMI) [Ratio]34.57 kg/n0EvlwdkerTurner Wilkins DPM Work Phone: noSS[facility] CenterZhdaslmsyi30-10-8324 10:05-0500Body .73 kgTurner Wilkins DPM Work Phone: noSS[facility] CenterYypndebdha31-76-8641 10:05-0500Respiratory rate18 /minTurner Wilkins DPM Work Phone: noSS[facility] CenterFqehyxnuzh41-63-0816 14:28-0400Body mjvcya157.5 cmAmador Abdalla MD Work Phone: NOSSM DePaul Health CenterSimxocynmc72-45-5126 14:28-0400Body mass index (BMI) [Ratio]34.57 kg/m2Amador Abdalla MD Work Phone: [facility] HospitalPuvxgqjbyq94-52-7437 14:28-0400Body temperature 97.11 [degF]Amador Abdalla MD Work Phone: noSS[facility] CenterDwiwldmwxp14-18-0155 14:28-0400Body sokupb95.73 kgAmador Abdalla MD Work Phone: noSS[facility] CenterTbxovieoys94-93-0061 14:28-0400Diastolic blood slywlrtv85 mm[Hg]Amador Abdalla MD Work Phone: noSS[facility] CenterAdkcepzgcq67-00-1387 14:28-0400Heart rate90 /min Amador Abdalla MD Work Phone: noSS[facility] CenterSuikfptkcz99-37-3541 14:28-0400Respiratory rate20 /minAmador Abdalla MD Work Phone: [facility] HospitalJpgogycvsb32-32-7183 14:28-8462SeW4% (BldA) [Mass fraction]95 %Amador Abdalla MD Work Phone: [facility] HospitalFdkaefzddb45-27-5520 14:28-0400Systolic blood uedrsrha169 mm[Hg]Amador Abdalla MD Work Phone: noSS[facility] CenterRqhlwuokgi47-34-9354 12:15-0400Body temperature 98.1 [degF]MD Amador Abdalla Work Phone: [phone])886-[facility]05-07-2022 12:15-0400 Diastolic blood glakzqow80 mm[Hg]MD Amador Abdalla Work Phone: [phone])150-[address] [place], [place] 6483105-07-2022 12:15-0400 Heart rate64 /minMD Amador Albrechteva Work Phone: [phone]05-07-2022 12:15-0400 Respiratory rate18 /minMD Amador Dobbinsadore Work Phone: [phone]05-07-2022 12:15-0400 SaO2% (BldA) [Mass fraction]96 %MD Amador Abdalla Work Phone: [phone])[address]05-07-2022 12:15-0400 Systolic blood xkqgeklj734 mm[Hg]MD Amador Abdalla Work Phone: [phone])[address]05-07-2022 08:00-0400 Inhaled oxygen flow rate3 L/minMD Amador Albrechteva Work Phone: [phone]05-07-2022 06:00-0400 Body almift07.5 kgMD Amador Albrechteva Work Phone: [phone]05-06-2022 04:05-0400 Body .56 cmMD Amador Dobbinsadore Work Phone: [phone] [place], [place] 6483105-06-2022 04:05-0400 Body mass index (BMI) [Ratio]34.9 kg/m2MD Amador Dobbinsadore Work Phone: [phone] [place], [place] 6483105-05-2022 19:30-0400 Diastolic blood fdyaczpa19 mm[Hg]Et3 NfculftbDuvucLxggwk70-02-6412 19:30-0400 Heart rate80 /minEt3 FgtijhjyLflbfFikjzi99-14-3875 19:30-0400Respiratory rate16 /minEt3 MnnihdbyVynigFkhqay10-17-6250 19:30-9690NlU0% (BldA) [Mass fraction]98 % Et3 XgktdqigIjsmgGiypfy95-03-2178 19:30-0400Systolic blood gpgzlaqy353 mm[Hg]Et3 [facility] Encounters Encounter DateEncounter TypeCare ProviderFacilityStart: 12-10-2024 End: 37-17-3882wdpgdmvxieJRPSQW D WILLIAMSOur Lady of Mercy Hospitaltart: 12-10-2024 End: 60-39-8835Rfgjjn follow up visit related to original Devon Cueva MD Work Phone: [facility]/Trauma and Adult ReconstructionComment on above:Age-related osteoporosis with current pathological fracture with routine healing (Primary Dx); History of right hip hemiarthroplasty; Closed fracture of neck of right femur, sequelaStart: 12-09-2024 End: 22-47-5595Igsxgd OnlyJason [facility] Physicians Orthopedics/Trauma and Adult ReconstructionComment on above:S/P hip hemiarthroplasty (Primary Dx)Start: 12-02-2024 End: 06-60-4686qghztjzexoSNEJFormerly [facility] HospitalStart: 11-27-2024 End: 17-04-4187urkvjxcrfmQNFUFormerly [facility] HospitalStart: 11-26-2024 Encounter for other preprocedural examinationSKnox [facility] Hospital Start: 11-26-2024 End: 60-02-8741Olkqiubesx and management of inpatientGian Green DO Work Phone: [facility] - GEN 7 AcuteStart: 11-26-2024 End: 62-22-6358Takbawvni department patient visitMARChildren's Mercy Hospital HospitalStart: 10-67-7253Afddyotny for other preprocedural examinationSHAWN SANTIAGOHighland District Hospitaltart: 75-81-1296ogbibvjgkzUILTProMedica Flower Hospitaltart: 09-04-2024 End: 03-62-3964Boxuzjc encounter procedureNicjayna Wilkins DPM Work Phone: [facility] CI PODIATRYComment on above:Type 2 diabetes mellitus without complication, unspecified whether prison insulin use (HCC) (Primary Dx); Pain due to onychomycosis of toenails of both feet; Venous insufficiencyStart: 09-04-2024 End: 63-76-3248bminxurkfoUXQSRVLR A BROWNNot AvailableStart: 09-04-2024 End: 17-76-4308Rexgsw Antonio Wilkins DPM Work Phone: [facility] CI PODIATRYStart: 09-04-2024 End: 19-58-0012Vmkroh flowsJuan Wilkins DPM Work Phone: [facility] CI PODIATRYStart: 09-03-2024 End: 05-61-6849Gdofid Derrell Abdalla MD Work Phone: [facility] CWM FMComment on above:Primary insomniaStart: 08-28-2024 End: 28-96-7078Jcqqwuravi Abdalla MD Work Phone: [facility] CWM FMStart: 08-28-2024 End: 51-09-9670Lpuznvravi Abdalla MD Work Phone: [facility] CWM FMStart: 08-28-2024 End: 13-40-2635Cayvjm outpatient visit 25 minutesAmador Abdalla MD Work Phone: [facility] CWM FMComment on above:Type 2 diabetes mellitus with hyperglycemia, without long-term current use of insulin (HCC) (Primary Dx); Benign essential hypertension ; Fibromyalgia; Major depressive disorder, recurrent episode, mild ; Generalized anxiety disorder ; Chronic diastolic heart failure (HCC); Primary insomnia; Stage 3b chronic kidney disease (CKD) ([facility]-HCC)Start: 08-28-2024 End: 84-54-9614xijhasgxnaTHVL NADERERNot AvailableStart: 07-21-2024 End: 48-11-4539kffjvqsncjQPGOKV [facility] Start: 07-12-2024 End: 45-65-9476vswhqyhgucPthqvhwq C BordnerFacility:CC Abebetart: 06-19-2024 End: 28-55-7016kljxvzkkizLVYHIZBH A BROWNNot AvailableStart: 06-19-2024 End: 50-60-6958Wmwbaxk encounter procedureTurner Wilkins DPM Work Phone: [facility] CI PODIATRYComment on above:Type 2 diabetes mellitus without complication, unspecified whether prison insulin use (Primary Dx); Pain due to onychomycosis of toenails of both feet; Venous insufficiencyStart: 06-19-2024 End: 97-28-2102Wapvxl flowsheetTurner Isrrael Will DPM Work Phone: [facility] CI PODIATRYStart: 06-19-2024 End: 35-35-5917Zhyqaq leonidasheetRenanatasha Arcos Will DPM Work Phone: [facility] CI PODIATRYStart: 06-09-2024 End: 12-38-7241QbsrkzSvmm Naderer MD Work Phone: n[facility] CWM FMComment on above:Primary osteoarthritis of both kneesStart: 06-03-2024 End: 17-60-9258BtmfhgTuerryhm Hohman MD Work Phone: noms FNR FMComment on above:Type 2 diabetes mellitus with hyperglycemia, without long-term current use of insulin (CMS/HCC); Chronic diastolic heart failure (CMS/HCC)Start: 05-27-2024 End: 61-37-6034Icmhmij encounter Jeb Abdalla MD Work Phone: noms HealthcareStart: 05-27-2024 End: 14-51-5227Frvnut follow up visit related to original Alfredo Abdalla MD Work Phone: n[facility] CWM FMComment on above:Medicare annual wellness visit, subsequent (Primary Dx); Upper respiratory tract infection, unspecified type; Benign essential hypertension (CMS/HCC); Type 2 diabetes mellitus with hyperglycemia, without long-term current use of insulin (CMS/HCC)Start: 05-27-2024 End: 44-25-9659Hvndok Derrell Abdalla MD Work Phone: noMS CWM FMComment on above:Type 2 diabetes mellitus with hyperglycemia, without long-term current use of insulin (CMS/HCC) (Primary Dx)Start: 05-13-2024 End: 85-31-6794Avxlxwhzpv Salazar Earl [employer] Work Phone: [facility] Phys[facility] Internal Medicine - Family MedicineComment on above:Chronic diastolic congestive heart failure (CMS-HCC) (Primary Dx); Essential hypertension; Other fracture of unspecified lumbar vertebra, subsequent encounter for fracture with routine healing; Generalized anxiety disorderStart: 05-06-2024 End: 34-91-1299ndbmuqqxaxRoefjo G Furlong DO Work Phone: [facility] Internal Medicine - Family MedicineComment on above:Chronic diastolic congestive heart failure (CMS-HCC) (Primary Dx); Other fracture of unspecified lumbar vertebra, subsequent encounter for fracture with routine healing; Essential hypertension; Type 2 diabetes mellitus with stage 3b chronic kidney disease, with long-term current use of insulin (CMS-HCC)Start: 04-29-2024 End: 18-29-8636Jnfgdmnanp Salazar Earl [employer] Work Phone: [facility] Internal Medicine - Family MedicineComment on above:Chronic diastolic congestive heart failure (CMS-HCC) (Primary Dx); Type 2 diabetes mellitus with stage 3b chronic kidney disease, with long-term current use of insulin (CMS-HCC); Other fracture of unspecified lumbar vertebra, subsequent encounter for fracture with routine healing; Generalized anxiety disorderStart: 04-25-2024 End: 42-95-6110Kefzygalop Salazar Earl [employer] Work Phone: [facility] Internal Medicine - Family MedicineComment on [...] deficits; Recurrent major depressive disorder, in remission ([facility]-HCC); Generalized anxiety disorder; Weakness; Old myocardial infarction; History of fallingStart: 04-02-2024 End: 58-09-6832Fphamjugo Result EncounterGeneric External Data ProviderNOMS External Department UnsolicitedStart: 04-02-2024 End: 13-38-9467Ilcszktuv Result EncounterGeneric External Data ProviderNOMS External Department UnsolicitedStart: 03-25-2024 End: 30-84-4503JchzvsZyzs Naderer MD Work Phone: noms CW FMComment on above:Primary insomniaStart: 03-19-2024 End: 62-58-5065Bhbgchtd Result EncounterAmador Abdalla MD Work Phone: noms External Department UnsolicitedStart: 03-19-2024 End: 16-18-0555Rxrzekif Result EncounterAmador Abdalla MD Work Phone: noms External Department UnsolicitedStart: 03-19-2024 End: 14-56-4176nifiwoxcceDUSS NADEREAurora Medical Center-[facility] HospitalStart: 03-05-2024 End: 19-66-9565Aocwwooyi Result EncounterAmador Abdalla MD Work Phone: noms External Department UnsolicitedStart: 03-05-2024 End: 95-11-6709Wybvtdgcd Result EncounterAmador Abdalla MD Work Phone: noms External Department UnsolicitedStart: 02-29-2024 End: 73-63-4451Ioojdo flowsHemant Abdalla MD Work Phone: noms CW FMStart: 02-29-2024 End: 16-72-3363Gofvpc Chong Abdalla MD Work Phone: noms CW FMStart: 02-29-2024 End: 99-97-3826tqwcvcagjpYIQX NADERERNot AvailableStart: 02-29-2024 End: 08-07-6784Hwpcyc outpatient visit 25 minutesAmador Abdalla MD Work Phone: noMS CWM FMComment on above:Left elbow pain (Primary Dx); Type 2 diabetes mellitus with hyperglycemia, without long-term current use of insulin ([facility]); Benign essential hypertension ([facility]); Chronic diastolic heart failure ([facility]); Encounter for long-term (current) use of medications; Primary osteoarthritis of both knees; Stage 3b chronic kidney disease (CKD) ([facility]); Dyslipidemia ([facility]); Class 1 obesity due to excess calories with serious comorbidity and body mass index (BMI) of 33.0 to 33.9 in adult; Type 2 diabetes mellitus with diabetic chronic kidney disease ([facility])Start: 02-25-2024 End: 15-58-6802FuoejdMrgg Naderer MD Work Phone: noms CWM FMComment on above:Primary osteoarthritis of both kneesStart: 02-07-2024 End: 75-33-3483Qxtyta Antonio Wilkins DPM Work Phone: noMS CI PODIATRYStart: 02-07-2024 End: 55-63-8364Yfohni Antonio Wilkins DPM Work Phone: noMS CI PODIATRYStart: 02-07-2024 End: 41-77-8462Crwlydy encounter procedureTurner Wilkins DPM Work Phone: noms CI PODIATRYComment on above:Type 2 diabetes mellitus without complication, 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 ([facility]) (Primary Dx); Pain due to onychomycosis of toenails of both feet; Venous insufficiencyStart: 02-07-2024 End: 29-26-7256ulupqjlwudGKQYIZLM A BROWNNot AvailableStart: 01-23-2024 End: 88-52-6925GsxxgkTbjz Naderer MD Work Phone: noms CWM FMComment on above:Primary osteoarthritis of both kneesStart: 01-22-2024 End: 00-62-9848QaibfnDezd Naderer MD Work Phone: noms CWM FMComment on above:Primary insomniaStart: 11-18-2023 End: 20-63-9518Scmdpihwu Result EncounterGeneric External Data ProviderNOMS External Department UnsolicitedStart: 11-18-2023 End: 61-94-0148Sfxowilpg Result EncounterGeneric External Data ProviderNOMS External Department UnsolicitedStart: 11-12-2023 End: 59-89-1996Auzqdg outpatient visit 25 minutesAmador Abdalla MD Work [...] 30-39.9); Acute UTI; Skin candidiasis; CAD in [place] artery (CMS/HCC); Type 2 diabetes mellitus with diabetic chronic kidney disease (HCC) (CMS/HCC) Start: 11-12-2023 End: 51-92-2569gokivathztHOOT NADERERNot AvailableStart: 11-12-2023 End: 92-59-0027Bmsamp Chong Abdalla MD Work Phone: noms CWM FMStart: 11-12-2023 End: 29-05-0842Goupsw Chong Abdalla MD Work Phone: noms CWM FMStart: 01-62-6067Xk Priscacarmen ReadOsmel DO Work Phone: [phone]-Sxjzv [facility] [address] DO Work Phone: Start: 07-03-2022 End: 51-33-0721mmukivdnkdCR AMADOR A NADERERFacility:R5Rrank: 05-26-2022 End: 68-63-4908fizjbudjxdEG AMADOR A NADERERFacility:M1Dxvtz: 05-14-2022 End: 43-74-8692ibuskasleaDU AMADOR A NADERERFacility:C3Mxuaz: 05-04-2022 End: 04-43-4834lbcbbaczxmKH AMADOR A NADERERFacility:E2Dfawe: 12-01-2021 End: 42-41-2671ssqnehmrxnBP AMADOR A NADERERFacility:X2Hksbh: 48-47-0165Fd [facility] Zafar Bolivar DO Work Phone: [phone]-Ekaiq [facility] [address] DO Work Phone: Start: 09-09-2021 End: 51-92-0479dcelztbbgzII AMADOR A NADERERFacility:M7Kysub: 08-31-2021 End: 93-17-7227zqxzavssviRH AMADOR A NADERERFacility:P3Icepn: 08-27-2021 End: 82-81-3687xxawkyyaceGEHUXUI D KATKOFacility:R9Mwclx: 06-29-4805kbyiljzmtdVG OBED DAISYRBELFacility:V8Ayhoh: 08-16-2021 End: 48-19-2523ebtdyditupXJ BERNADETTE ANGELES .Facility:Q0Ojsqh: 08-01-2021 End: 49-86-5847fwqsnmcwetDPELDYI BOESFacility:E6Brtok: 07-27-2021 End: 54-35-8501iumkhmzvumNFTFFAD BOESFacility:Q6Ljwve: 07-15-2021 End: 98-08-9500shsbklgwhqRL AMADOR A NADERERFacility:J3Kwkkb: 06-25-2021 End: 85-52-6368imqyachliaRWRYXEI PROVIDERFacility:METROHealthStart: 06-24-2021 End: 31-31-8337Aoperkdghh and management of inpatientMarc John Facility:[facility]tart: 06-24-2021 End: 81-97-3489Hewywdzxpo and management of inpatientMD Amador Abdalla Work Phone: [facility] Start: 06-23-2021 End: 80-50-3315azristqsxdCz1 ResourceMetroHealth Emergency Triage, Treat and TransportStart: 06-23-2021 End: 82-79-7118Apbsrskvd department patient visitEt3 ResourceMetroHealth Emergency Triage, Treat and TransportComment on above:ArrivedStart: 11-21-2018 End: 30-47-0283Dgjhvsd encounter procedureOMAR AL-HOURANIFacility:UTMCStart: 09-19-2017 End: 54-18-6337Hkaymzq encounterDANILU LOPEZRUPAAcmc Healthcare Systemveland Procedures DateProcedureProcedure DetailPerforming ClinicianStart: 08-93-5050WVEWQXJ Christine Goodrich MD Work Phone: Start: 34-58-1145QHKFPQW Christine Goodrich MD Work Phone: [phone]: 38-04-3497Kuzomzwzntahs metabolic Estrada Goodrich MD Work Phone: [phone]: 10-71-2173VCWISHR Christine Goodrich MD Work Phone: [phone]: 32-97-0173FISORKZ Christine Goodrich MD Work Phone: Start: 73-73-4418ANCBAOW Christine Goodrich MD Work Phone: [phone]: 61-94-6613XAKXDAJ Christine Goodrich MD Work Phone: [phone]: 83-64-1760Xmvwuzjmnigix metabolic panelSlakia Goodrich MD Work Phone: [phone]: 18-09-6799KWCVIWK Christine Goodrich MD Work Phone: [phone]: 86-93-5643KAGZWWP Christine Goodrich MD Work Phone: [phone]: 08-48-8817PQHOTPC Christine Goodrich MD Work Phone: [phone]: 63-25-7408IZMYAIN Christine Goodrich MD Work Phone: Start: 04-63-2947Awcfdzfkdrgvg metabolic panelSusan Namo MD Work Phone: Start: 59-78-7826FYVGDDG Christine Goodrich MD Work Phone: Start: 43-73-6542UTJQRIQ Christine Goodrich MD Work Phone: [phone]: 25-38-1007SQBVBKJ Christine Goodrich MD Work Phone: [phone]: 14-38-8692LA ECHO COMPLETE W Lindsey Goodrich MD Work Phone: [phone]: 39-34-8788Bwjqx dip stick/tablet reagent auto microscopyYasmin Goodrich MD Work Phone: Start: 92-30-6485MTRNPIH Christine Goodrich MD Work Phone: Start: 11-28-2024 End: 42-53-3165Kmhectmafmkey metabolic Estrada Goodrich MD Work Phone: Start: 89-47-4923Gd retroperitoneal real time w/image completeGonzalo Rolle MD Work Phone: Start: 76-67-6268HMMNAJX Christine Goodrich MD Work Phone: Start: 52-46-6250Npkecgmtsw exam chest single view Dane Pretty MD Work Phone: Start: 64-45-2568Psfmg hip unilateral with pelvis 2-3 viewsInocencia Kearney PA-C Work Phone: Start: 33-51-3359Mesvpgzoadp up to 1 hour physician/qhp timeKirby Cueva MD Work Phone: Start: 11-27-2024 End: 14-88-7762Apucktdihpsucjpx hip partialKirby Cueva MD Work Phone: Start: 53-06-9518HTKFSHLREBEKA Goodrich MD Work Phone: Start: 11-27-2024 End: 31-47-3132NQGGZIH Christine Goodrich MD Work Phone: Start: 85-92-9909Hqvam function panelGonzalo Rolle MD Work Phone: Start: 09-79-8194Vftnn depression screening assessment Maninder Byrd RNStart: 86-96-2040TCVNLXZ GLUCOSEGonzalo Rolle MD Work Phone: Start: 20-53-9968SLGWQNN GLUCOSEGonzalo Rolle MD Work Phone: Start: 45-88-8424Uo lower extremity w/o contrast materialRuwhitley Green DO Work Phone: Start: 16-44-9087Vskua dip stick/tablet reagent auto microscopyGonzalo Rolle MD Work Phone: Start: 71-64-6953VJEAE OXIMETRY, SPOTGonzalo Rolle MD Work Phone: Start: 08-68-5315Mci routine ecg w/least 12 lds trcg only w/o i&rRussnilay Beltre Peter DO Work Phone: Start: 01-49-3351Thyvwfsw screenMARC NADERERComment on above:Performed By: #### TSC #### [facility] ([facility]) [address] [place] [address] VIRStart: 11-26-2024 End: 19-24-5355Scdkw metabolic panel calcium totalRuwhitley Green DO Work Phone: Start: 46-24-3398Joexo typing serologic aboRussnilay Green DO Work Phone: Start: 08-60-0012Ifjanfux screenMARC NADERERComment on above:Performed By: #### CBCA, 3016-3, LIVR, BMP #### [facility] ([id number]) [address] [place] [address], [place] [address] #### HA1C, 48841-1 #### [facility] ([id number]) [address] [place] [address], [address] [place], [place] [address]Agupz: 41-66-2483Kpkeeajb identified in Urine by CultureGeneric External Data ProviderStart: 21-90-8040Ucpru metabolic panel calcium totalAmador Abdalla MD Work Phone: Start: 28-96-3435YNK CBC WITH AUTO DIFFAmador Abdalla MD Work Phone: Start: 50-38-8080Ojzhjumq identified in Urine by CultureGeneric External Data ProviderStart: 12-20-1481RD Iliac/Fem w/LHCMD Amador Abdalla Work Phone: Start: 55-76-8126VF PCI MACHINERY ENGINEER 1st Vessel RCA DESMD Amador Abdalla Work Phone: Start: 48-97-0483Dlujbmyot of catheter into urinary bladderMD Amador Abdalla Work Phone: Start: 31-23-1936Zayvseiluup injection iv push each new drugMD Amador Abdalla Work Phone: Start: 10-20-2953PK Amador Abdalla Work Phone: Plan of Treatment DateCare ActivityDetailAuthorStart: 51-82-5725Zrvghdg ScreeningTobacco Screening [facility] SystemStart: 32-40-0330Olbkomwrrk ScreeningDepression Screening [facility] SystemStart: 89-04-0667Bnpztot ScreeningTobacco Screening [facility]MM[facility] SystemStart: 45-39-6147Ineumipdhjrtzh of varicella zoster vaccineZoster (Shingles) Vaccine (1 of 2)[facility] SystemComment on above:Postponed from 07/10/1997 (Patient Refused)Start: 67-62-0885JSgQ,Tdap and Td Vaccines (1 - Tdap)DTaP,Tdap and Td Vaccines (1 - Tdap)[facility] HospitalComment [facility] above:Postponed from 07/10/1964 (Patient Refused)Start: 48-27-9195Ddful screening for proteinDiabetes: Urine Protein ScreeningNOSSM DePaul Health CenterStart: 91-03-8953Affoq screening for proteinDiabetes: Urine Protein ScreeningNOMS HealthcareStart: 01-14-2025 End: 10-10-0477Tnucowe encounter /26/2025 1:00 PM EST Office Visit [facility] [address] [place] [phone] Kirby Cueva MD [address] [place] [address] [facility] and Adult ReconstructionStart: 12-10-2024 End: 97-07-5304Vkpnmez encounter procedureProMedica Physicians Orthopedics/Trauma and Adult ReconstructionStart: 12-10-2024 End: 79-49-9178ywbtzeudmhIqkNgyfsa Physicians Orthopedics/Trauma and Adult ReconstructionStart: 12-09-2024 End: 82-74-9385QQ Pelvis and Hip - right 2 ViewsX-ray hip right 2-3 views with or without pelvis Imaging Routine S/P hip hemiarthroplasty Expected:12/09/2024, Expires: 12/09/2025[facility] Work Phone: Comment on above:Expected: 12/09/2024, Expires: 12/09/2025Start: 12-01-2024 End: 68-85-7434Skremke encounter igsvfggvo96/13/2025 1:15 PM EDT Office Visit [facility] [address] [place] [address] Amador Abdalla MD [address] [place] [address] [facility] FMStart: 96-77-3850Ncqakknkm vaccinationLAKEVIEW HOSPITAL HealthcareStart: 65-65-7923Oubqqslzpe A1c measurementDiabetes: Hemoglobin T8JLDSO Healthcare Start: 09-04-2024 End: 78-55-0583Mdoeaey encounter procedureNOMS CI PODIATRYComment on above:Type 2 diabetes mellitus without complication, unspecified whether prison insulin use (HCC) (Primary Dx); Pain due to onychomycosis of toenails of both feet; Venous insufficiencyStart: 08-28-2024 End: 23-24-9876Dupuqmfpbw A1c/Hemoglobin.total in BloodHemoglobin A1c Lab Routine Type 2 diabetes mellitus with hyperglycemia, without long-term current use of insulin (HCC) Expected: 08/28/2024 (Approximate), Expires: 08/28/2025[facility] Work Phone: Comment on above:Expected: 08/28/2024 (Approximate), Expires: 08/28/2025Start: 08-28-2024 End: 09-36-0782Uimobtf encounter procedureNOMS CWM FMComment on above:Arrived Start: 05-27-2024 End: 11-08-0955Myltiwh encounter gzbdyjnhe44/08/2025 11:00 AM EDT Office Visit [facility] [address] [place] [address] Amador Abdalla MD [address] [place] [address] [facility] FMStart: 41-26-8523Xqouhrqtz vaccinationInfluenza VaccineTriHealth SystemComment on above:Postponed from 10/21/2023 (Vaccine Not Available) Start: 04-24-2024 End: 34-75-1825Hichbmr encounter vrrgpgnaw30/06/2025 10:00 AM EST Office Visit [facility] [address] [facility] [address] [place] [phone] Turner Wilkins DPCarmen [address] [facility] [address] [place] [address] [facility] CI PODIATRYStart: 04-11-2024 End: 19-40-3866Bbxzjnr encounter acwupswci59/21/2025 11:00 AM EST Office Visit [facility] [address] [place] [phone] Boyd Mario, VIGNESH [address] [facility] [address] [place] [address] [facility] FB ORTHOPAEDICSStart: 04-07-2024 End: 07-52-8377Wnsscbo encounter iuctsdyds47/17/2025 2:30 PM EST Office Visit [facility] [address] [place] [address] Amador Abdalla MD [address] [place] [address] [facility] FMStart: 03-13-2024 End: 51-14-2385Vjildwp encounter redesyxbz75/23/2025 1:30 PM EST Office Visit [facility] [address] [place] [phone] Jaun Alexis, BIODIESEL OPERATIONS MANAGER [address] [place], [place] [phone] [facility] FB ORTHOPAEDICSStart: 02-29-2024 End: 16-40-0979Xmmdk metabolic 1998 panel - Serum or PlasmaBasic metabolic panel Lab Routine Stage 3b chronic kidney disease (CKD) ([facility]) Expected: 02/28/19 25 (Approximate), Expires: 02/28/2025NOMS HealthcareComment on above:Expected: 02/29/2024 (Approximate), Expires: 02/28/2025Start: 02-29-2024 End: 16-94-4332NWO W Auto Differential panel - BloodCBC and differential Lab Routine Encounter for long-term (current) use of medications Expected: 02/19 (Approximate), Expires: 02/28/2025NOMS HealthcareComment on above: Expected: 02/29/2024 (Approximate), Expires: 02/28/2025Start: 02-29-2024 End: 14-47-8638Eznapklsnr A1c/Hemoglobin.total in BloodHemoglobin A1c Lab Routine Type 2 diabetes mellitus with hyperglycemia, without long-term current use of insulin ([facility]) Expected: 02/29/2024 (Approximate), Expires: 02/28/2025 [facility] HealthcareComment on above:Expected: 02/29/2024 (Approximate), Expires: 02/28/2025Start: 02-29-2024 End: 81-02-8537Iarcvkx function 2000 panel - Serum or PlasmaHepatic function panel Lab Routine Encounter for long-term (current) use of medications Expected: 02/29/2024 (Approximate), Expires: 02/28/2025NONJ HealthcareComment on above: Expected: 02/29/2024 (Approximate), Expires: 02/28/2025Start: 02-29-2024 End: 20-41-9565Qhzmr 1996 panel - Serum or PlasmaLipid panel Lab Routine Dyslipidemia ([facility]) Expected: 02/29/2024 (Approximate), Expires: 02/28/2025 [facility] HealthcareComment on above:Expected: 02/29/2024 (Approximate), Expires: 02/28/2025Start: 02-29-2024 End: 65-13-5881Vvatcuobuxwo/Creatinine panel in random UrineMicroalbumin / creatinine, urine ratio Lab Routine Type 2 diabetes mellitus with hyperglycemia, without long-term current use of insulin ([facility]) Expected: 02/29/2024 (Approximate), Expires: 02/28/2025[facility] Work Phone: Comment on above:Expected: 02/29/2024 (Approximate), Expires: 02/28/2025Start: 02-29-2024 End: 99-27-2117Hwehhxhlemr [Units/volume] in Serum or PlasmaTSH Lab Routine Class 1 obesity due to excess calories with serious comorbidity and body mass index(BMI) of 33.0 to 33.9 in adult Expected: 02/29/2024 (Approximate), Expires: 02/28/2025NONJ HealthcareComment on above:Expected: 02/29/2024 (Approximate), Expires: 02/28/2025Start: 02-29-2024 End: 18-89-9627QP Knee - left 1 or 2 ViewsXR knee 1 or 2 views left Imaging Routine Primary osteoarthritis of both knees Expected: 02/29/2024, Expires: 02/28/2025NOM[facility] HealthcareComment on above:Expected: 02/29/2024, Expires: 02/28/2025Start: 02-29-2024 End: 64-98-8671LK Knee - right 1 or 2 ViewsXR knee 1 or 2 views right Imaging Routine Primary osteoarthritis of both knees Expected: 02/29/2024, Expires: 02/28/2025NOM[facility] HealthcareComment on above:Expected: 02/29/2024, Expires: 02/28/2025Start: 02-29-2024 End: 86-76-2982Fokznnb encounter cxwkrdjen38/10/2025 11:30 AM EST Office Visit [facility] [address] [place] [address] Amador Abdalla MD [address] [place] [address] [facility] FMStart: 02-07-2024 End: 34-25-8749Sjtgfyn encounter procedureNOMS CI PODIATRYComment on above:Type 2 diabetes mellitus without complication, 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 ([facility]) (Primary Dx); Pain due to onychomycosis of toenails of both feet; Venous insufficiencyStart: 32-85-8451Szmlmyfwdw A1c measurementDiabetes: Hemoglobin Q8UQIXC HealthcareStart: 01-23-2024 End: 59-53-4465Mcmmesx encounter /04/2024 10:00 AM EST Office Visit [facility] [address] [place] [address] Amador Abdalla MD [address] [place] [address] [facility] FMStart: 11-12-2023 End: 52-61-4681Dbhgtmp encounter dsdyrftff52/23/2024 2:15 PM EDT Office Visit [facility] [address] [place] [address] Amador Abdalla MD [address] [place] [address] [facility] FMComment on above:ArrivedStart: 11-12-2023 End: 19-40-8258Wxzfvya, urine, randomAlbumin, urine, random Lab Routine Type 2 diabetes mellitus with hyperglycemia, without long-term current use of insulin ([facility]) Expected: 11/12/2023 (Approximate), Expires: 11/11/2024[facility] Work Phone: Comment on above:Expected: 11/12/2023 (Approximate), Expires: 11/11/2024Start: 11-12-2023 End: 45-38-9675Wmqrg metabolic 1998 panel - Serum or PlasmaBasic metabolic panel Lab Routine Stage 3b chronic kidney disease (CKD) ([facility]) Expected: 11/12/19 24 (Approximate), Expires: 11/11/2024[facility] HealthcareComment on above:Expected: 11/12/2023 (Approximate), Expires: 11/11/2024Start: 11-12-2023 End: 31-87-4567UAE W Auto Differential panel - BloodCBC and differential Lab Routine Encounter for long-term (current) use of medications Expected: 10/21 (Approximate), Expires: 11/11/2024[facility] HealthcareComment on above: Expected: 11/12/2023 (Approximate), Expires: 11/11/2024Start: 11-12-2023 End: 04-27-6342Zhmkbrcinj A1c/Hemoglobin.total in BloodHemoglobin A1c Lab Routine Type 2 diabetes mellitus with hyperglycemia, without long-term current use of insulin ([facility]) Expected: 11/12/2023 (Approximate), Expires: 11/11/2024 [facility] HealthcareComment on above:Expected: 11/12/2023 (Approximate), Expires: 11/11/2024Start: 11-12-2023 End: 38-39-0950Igmmphc function 2000 panel - Serum or PlasmaHepatic function panel Lab Routine Encounter for long-term (current) use of medications Expected: 11/12/2023 (Approximate), Expires: 11/11/2024NONJ HealthcareComment on above: Expected: 11/12/2023 (Approximate), Expires: 11/11/2024Start: 11-12-2023 End: 78-39-5785Yetjf 1996 panel - Serum or PlasmaLipid panel Lab Routine Dyslipidemia (CMS/HCC) Expected: 11/12/2023 (Approximate), Expires: 11/11/2024 [facility] HealthcareComment on above:Expected: 11/12/2023 (Approximate), Expires: 11/11/2024Start: 11-12-2023 End: 02-01-8340Fhyszomrlcp [Units/volume] in Serum or PlasmaTSH Lab Routine Obesity (BMI 30-39.9) Expected: 11/12/2023 (Approximate), Expires: 11/11/2024 [facility] HealthcareComment on above:Expected: 11/12/2023 (Approximate), Expires: 11/11/2024Start: 56-40-4262Kxfapngcj vaccinationNONJ HealthcareStart: 09-06-2023 Urine screening for proteinDiabetes: Urine Protein ScreeningHawthorn Children's Psychiatric Hospital Start: 63-01-3835Dstfg screening for proteinDiabetes: Urine Protein Screening [facility] HealthcareStart: 97-56-7521Oamcv chest X-rayXR chest 1V [facility] Hospitaltart: 32-69-5423Bkdjvidebxjn Vaccine: 65+ Years (2 of 2 - PCV)Pneumococcal Vaccine: 65+ Years (2 of 2 - PCV)[facility] HealthcareStart: 84-99-6056Onda Risk ScreeningFall Risk ScreeningMercy Health St. [facility] Health SystemStart: 63-84-6508Vnmkgagnuins vaccinationPneumococcal Vaccine(s) (65+ yrs) (1 - PCV) [facility]HealthStart: 53-03-7576Jhfkeftqz for osteoporosisBone Densitometry [facility]HealthStart: 32-32-4969Tmucnixlwlozjl of varicella zoster vaccineZoster (Shingles) Vaccine (1 of 2)[facility] SystemStart: 57-15-0764Lvaqquarqcx of occult blood in single stool specimenFITMetroHealthStart: 57-31-3752Kzigaumlb for malignant neoplasm of breastMammographyMetroHealthStart: 07-10-1997 Screening for malignant neoplasm of colonCRC ScreeningMetroHealthStart: 17-17-8720Mvebgysl (RZV) Vaccine (1 of 2)Shingles (RZV) Vaccine (1 of 2) [facility]HealthStart: 67-17-3990Mnpogssydal [Mass/volume] in Serum or Plasma CholesterolMetroHealthStart: 23-94-3321PIkV,Tdap and Td Vaccines (1 - Tdap) DTaP,Tdap and Td Vaccines (1 - Tdap)ProMcentral alabama va [facility] Health SystemStart: 07-[birth year]-1966 Pneumococcal Vaccine: 65+ Years (1 of 2 - PCV)Pneumococcal Vaccine: 65+ Years (1 of 2 - PCV)[facility] HealthcareStart: 72-51-7547Bhkjdeglq C screeningHepatitis C AntibodyMetroHealthStart: 21-97-0039Szruuub + diphtheria + acellular pertussis vaccine (product)Tdap BoosterMetroHealthStart: 91-33-7483Bvcgurifmf Screening Depression ScreeningProClermont County Hospital SystemStart: 73-87-9194Gjoyvtp Screening Tobacco ScreeningProClermont County Hospital SystemStart: 43-04-9151Geuiybdq screening Diabetes: Retinopathy ScreeningLAKEVIEW HOSPITAL HealthcareStart: 72-06-4077LUGOB-19 Vaccine (1)COVID-19 Vaccine (1)[facility]HealthStart: 19-01-1512Zpzlhmihpy A1c measurement Diabetes: Hemoglobin P8DHQCY HealthcareStart: 05-22-1948Medicare Annual Wellness (AWV)Medicare Annual Wellness (AWV)[facility] HealthcareStart: 85-25-5703Gytmuzecy for malignant neoplasm of colonColonoscopyMetroHealthBacteria identified in Urine by CultureURINE CULTURE, ROUTINE Lab Routine 04/02/2024 3:22 PM [facility] metabolic 1998 panel - Serum or PlasmaBasic metabolic panel Lab Routine 03/19/2024 9:14 AM [facility] Work Phone: End: 58-36-0466Shfkxcrk Pathology ReviewProSalem City HospitalFingerstick glucose checksProRiverview Regional Medical Center Work Phone: End: 10-34-7043Ohrnuyriisjrojatgrkgy for Therapy MonitoringAdams County HospitalImmunoelectrophoresis for Therapy MonitoringAdams County HospitalPatient EducationCoronary Angioplasty (DC) Liraglutide Angina (DC) Drug Eluting Stents [facility] Work Phone: Patient referralSamaritan Hospital Ctr Work Phone: End: 51-74-9449Ifgtpkl electrophoresis, serumProMedica Work Phone: Protein electrophoresis, serumDoctors Hospitalca Health System Immunizations Immunization DateImmunizationNotesCare ZhvgkcmhQurfxmma06-27-3080dhuujujux virus vaccine, unspecified formulationAmador Abdalla MD Work Phone: [facility] Psychiatric HospitalWjxrizgcpp02-72-4197xlojrlhqw virus vaccine, unspecified formulationAmador Abdalla MD Work Phone: [facility] Payers DatePayer CategoryPayerPolicy [id number] HMO [id number] [id number] 2022MedicareANTHEM MEDICARE ADVANTAGE ANTHEM MEDICARE ADVANTAGE [id number] 2021-Present [address] [place] [id number] 2022Medicare (Managed Care)ANTHEM MEDICARE ADVANTAGE [id number] [id number] [id number] 1960Medicaid [id number] [id number] [id number] 2.840.1.385920.3.57[id number] 2.840.1.763083.3.579.[id number] 2.840.1.350150.3.579.2.4[id number] 2.840.1.447527.3.579.2.22549-17-5149Dnexhoo5651511 2.840.1.034859.3.579.[id number] 2.840.1.204540.3.579.2.86916-22-2144Cfvkvwn6385480 2.840.1.930168.3.579.[id number] 2.840.1.250952.3.57[id number] 2.840.1.713632.3.57[id number] 2.840.1.059957.3.579.2.67722-59-1237Motvlxr1284813 2.16840.1.928993.3.579.[id number] 2.840.1.572550.3.579.2.51469-06-7074Aqomyrq8484951 2.16840.1.973293.3.579.2.99260-71-7851Pjkxixw6135080 2.16840.1.844195.3.579.2.11743-95-3434Gplprse5931120 2.16840.1.638004.3.579.2.57575-90-0731Wysbzoa86062744 2.16840.1.296946.3.579.2.61979-43-4637Cpiiipp50189550 2.0.1.551082.3.579.2.351836-50-5283Trkhllx09154061 2.0.1.478391.3.579.2.947753-53-6971Czsdnkf4114562 2.0.1.714756.3.579.2.599431-08-8127Nnbufkr8270277 2.840.1.196134.3.579.2.516515-01-3574Uhlvrje5754708 2.840.1.053567.3.579.2.258224-73-0065Tydddkw2799461 2.840.1.706146.3.579.2.065143-31-7963Lppwxwb4491984 2.840.1.350976.3.57[id number] 2.840.1.859134.3.579.2.56[id number] 2.840.1.606256.3.579.2.[id number] 2.840.1.753318.3.579.2.341327-78-9329Sinihhi898789095 2.840.1.251347.3.579.2.171730-48-4432Ehyljml671639161 2..840.1.307927.3.579.2.318023-72-3236Puatqut628005547 2..840.1.871913.3.579.2.630899-15-8236Ejamugs778708686 2.840.1.952044.3.579.2.7[id number] 2.840.1.130[id number] 2.840.1.384114.3.579.2.531 Social History DateTypeDetailFacilityTobacco smoking status NHISTobacco smoking consumption unknownWayne Healthcare Main Campus Work Phone: Start: 79-00-7410Pef Assigned At BirthNot on file [facility]HealthStart: 06-24-2021 End: 98-37-7329Pefjlec smoking status NHISNever smoked tobacco (finding) [facility] Systemtart: 00-18-9485Ggd Assigned At BirthFemale [facility] Systemtart: 10-19-2022 End: 20-89-0817Dmwduok use and exposureSmokeless tobacco non-userNOMS Healthcare Start: 11-12-2023 End: 82-15-8804Jtzqqoctw beverage intakeLifetime non-drinker (finding)[facility] HealthcareStart: 11-12-2023 End: 71-35-2844Ulywvuu of Social functionNOMS HealthcareStart: 11-12-2023 End: 55-77-5756Jlhxhrg use panelNOMS HealthcareHow often do you need to have someone help you when you read instructions, pamphlets, or other written material from your doctor or pharmacy [SILS]SometimesNOMS HealthcareDo you belong to any clubs or organizations such as gnosticism groups, unions, fraternal or athletic groups, or [...] money to buy more. Never trueNOMS HealthcareStart: 74-14-2756ObtAmonvd (finding)TriHealth SystemHow often do you need to have someone help you when you read instructions, pamphlets, or other written material from your doctor or pharmacy [SILS] SometimesNOMS HealthcareStart: 11-30-2024 End: 91-41-8141Yqaxgfxgm beverage intakeEx-drinker (finding)TriHealth SystemNEGATED: Highlighted rowStart: NINFHistory of tobacco usePassive smoker [facility] Medical Equipment Procedure CodeEquipment CodeEquipment Original TextEquipment IdentifierDates1 each by Other route Daily Use as [id number]: each Daily [id number]: 76-90-1558Zbk to inject 1-4 times daily as directed.[id number] Start: 06-18-2024 End: 85-04-3168Zbk to inject 1-4 times daily as directed.[id number]: 09-03-2024 End: 09-03-2025()[id number]()[id number](10)[id number](21)N/A, 797888_[facility] Start: 11-27-2024()[id number](17)[id number](10)[id number](21)N/A, 797893_imp FDA Start: 11-27-2024()[id number](40)[id number](88)[id number](21)N/A, 797894_imp FDA Start: 11-27-2024 Goals DatePatient GoalDesired Activity/StatePersonal health goalComment on above: Evaluation of progress towards goal: plan to go to nursing home facility for rehab needs Functional Status SsvlEntuuglhawPwqxiyKhznoznz51-57-4335Kqltcnhcgd statusPatient at Baseline [facility] Work Phone: [facility] Mental Status EvnvXruuzdeexoAgoixaGahnohbh03-42-9277Vuvmdbyjc functionCognitive Status Patient is Progressing Toward BaselineWayne Healthcare Main Campus Work Phone: [facility] Clinical Notes 06-24-2021 to 12-10-2024 Note Date & VovyAvciOwnzaehj73-66-7994 History of Present illness Narrative* Kirby Cueva [...] 12/29/24 - Physical Therapy: Continue therapy at nursing home facility - [facility]: Recommend evaluation in [...] concern. Kirby Cueva MD documented in this encounterAdams County Hospital10-13-2025 Miscellaneous Notes* Discharge Planning Note - LOVELY Ulloa - 12/01/2024 1:34 PM EDT DC plan SNF: [facility] accepting pt. We have insurance approval. Pt [...] Discharge Disposition SNF SNF Name [facility] Accepted? Yes PreCertification Authorization Number [id number] PreCertification Expiration Date 12/04/24 PreCertification Expiration Time 8818 Does the patient need discharge transportation arranged? Yes Transportation Arranged Ambulance Patient choice offered Yes List Provided Yes [facility] List Provided Alf Facility Respiratory Indicator Does the patient currently [...] Description: INTERVENTIONS: 1. Encourage patient or legal hobbies and crafts sales representative to report early pain and [...] per policy 9. Teach patient or legal hobbies and crafts sales representative interventions for comforting Outcome: Progressing [...] at the bedside 7. Instruct patient/ patient hobbies and crafts sales representative about use of safety devices 8. Include patient/ patient hobbies and crafts sales representative in decisions related to safety [...] hygiene technique. 7. Identify and instruct patient/patient hobbies and crafts sales representative in use of appropriate isolation precautionsfor identified infection/symptoms. 8. Provide and discuss with patient/patient hobbies and crafts sales representative on educational MDRO sheet. 9. Encourage and monitor nutritional status daily and consult certified corporate travel executive if indicated. 10. Implement neutropenic guidelines as needed. Outcome: Progressing Note: Evaluation of progress towards goal: PO cefuroxime continued, afebrile Problem: Knowledge Deficit Goal: Patient/patient hobbies and crafts sales representative demonstrates understanding of disease process, [...] be free from fall Description: Interventions: 1. [place] to environment 2. Hourly rounds addressing the [...] non-skid footwear 11. Teach patient and patient hobbies and crafts sales representative to maintain environment for safety [...] (cane, walker) within reach 19. Request patient hobbies and crafts sales representative bring adaptive equipment/mobility aids from home or obtain and provide as needed 20. Consult pharmacy regarding effects of med's affecting mobility, cognition, and alternatives 21. Obtain physician order for PT if risk factors associated with mobility are present 22. Obtain physician order for OT as appropriate 23. Utilize diversional activities 24. Educate patient and patient hobbies and crafts sales representative how to maintain a safe environment during visitationtimes (notify nurse prior to leaving bedside) 25. Consider appropriateness of medical or non-medical voucher clerk 26. Set up voiding schedule as appropriate [...] supplement as ordered 13. Collaborate with clinical certified corporate travel executive 14. Include patient/ patient's hobbies and crafts sales representative in decisions related to nutrition [...] as appropriate 6. Collaborate with case management/social service director for discharge needs Outcome: Completed Note: Evaluation of progress towards goal: no spiritual needs * PT/OT/CHEMICAL PACKAGER - SARAH Bynum/Alexsander - 12/01/2024 11:03 AM [...] Equipment: gait belt, kim stedy, external cath Telemetry/Wild Life Manager: No Oxygen Used: 2L Other: fall risk [...] Patient will perform bed mobility with Modified Calvin Dates: Start: 11/28/24 Expected End: 12/26/24 Description: Goal Description: Disciplines: OT Outcomes Date/Time User Outcome 12/01/24 1102 TIFFANY Bynum Not Progressing 11/29/24 1605 SARAH Lopez/Alexsander Progressing 11/29/24 1042 SARAH Lopez/Alexsander Progressing Goal Note filed on 12/01/24 1102 by TIFFANY Bynum Evaluation of progress towards goal: Problem: Dressing LB Dates: Start: 11/28/24 Disciplines: OT Goal: Patient will perform dressing LB with Modified Calvin Dates: Start: 11/28/24 Expected End: 12/26/24 Description: [...] SARAH Lopez/Alexsander Progressing 11/29/24 1042 Jodie Kevin, MSITH/L Progressing Problem: Grooming Dates: Start: 11/28/24 Disciplines: [...] Patient will perform toilet transfers with Modified Calvin Dates: Start: 11/28/24 Expected End: 12/26/24 Description: Goal Description: Disciplines: OT Problem: Toileting Dates: Start: 11/28/24 Disciplines: OT Goal: Patient will perform toileting with Modified Calvin Dates: Start: 11/28/24 Expected End: 12/26/24 Description: Goal Description: Disciplines: OT Problem: Transfers Dates: Start: 11/28/24 Disciplines: OT Goal: Patient will perform transfers with Modified Calvin Dates: Start: 11/28/24 Expected End: 12/26/24 Description: Goal Description: Disciplines: OT Outcomes Date/Time User Outcome 12/01/24 1102 SARAH Bynum/Alexsander Progressing 11/29/24 1605 SARAH Lopez/Alexsander Progressing 11/29/24 1042 TIFFANY Lopez Progressing Goal Note filed on 12/01/24 1102 by TIFFANY Bynum Evaluation of progress towards goal: Occupational Therapy Care Plan (Resolved) There are no resolved problems. Principal Problem: Closed fracture of right hip, initial encounter ([facility]) Cosigned by PROSPER Mckinley/Alexsander at 12/01/2024 11:42 AM EDT Associated attestation - Kim Washington OTR/L - 12/01/2024 11:42 AM EDT I have reviewed and agree with this note and education documentation for this visit. * Discharge Planning Note - GEORGE TorresP - 12/01/2024 10:43 AM EDT DISCHARGE PLANNING NOTE BLS transport confirmed via [facility] going to [facility] on 12/01/2024 at 1400 * PT/OT/CHEMICAL PACKAGER - Ely Barrios, MATERIAL MOVERS - 12/01/2024 8:42 AM EDT Physical Therapy [...] mobility pass Equipment: gait belt, kim stedy Telemetry/Wild Life Manager: No Oxygen Used: 2 liters oxygen Other: [...] Date/Time User Outcome 12/01/24 1313 Ely Barrios, MATERIAL MOVERS Progressing 11/30/24 1654 Nellie Ibarra PTA Not Progressing 11/29/24 1714 Nellie Ibarra, MATERIAL MOVERS Progressing 11/29/24 1404 Nellie Ibarra PTA Progressing Goal Note filed on 11/30/241653 by Nellie Ibarra PTA Evaluation of progress towards goal: Problem: Transfers Dates: Start: 11/28/24 Disciplines: PT Goal: Patient will perform transfers with Minimum Assist Dates: Start: 11/28/24 Expected End: 12/12/24 Description: Goal Description: Disciplines: PT Outcomes Date/Time User Outcome 12/01/24 1313 Ely Barrios, MATERIAL MOVERS Progressing 11/30/24 1654 Nellie Ibarra MATERIAL MOVERS Not Progressing 11/29/24 1714 Nellie Ibarra, MATERIAL MOVERS Progressing 11/29/24 1404 Nellie Ibarra PTA Progressing Goal Note filed on 11/30/241653 by Nellie Ibarra PTA Evaluation of progress towards goal: Physical Therapy Care Plan (Resolved) There are no resolved problems. Principal Problem: Closed fracture of right hip, initial encounter ([facility]) Cosigned by Julia Tyson, PT at 12/01/2024 [...] Description: INTERVENTIONS: 1. Encourage patient or legal hobbies and crafts sales representative to report early pain and [...] per policy 9. Teach patient or legal hobbies and crafts sales representative interventions for comforting Outcome: Progressing Note: Evaluation of progress towards goal: Patient resting in bed comfortably. Patient states PRN pain medication working to control her pain as directed. * PT/OT/CHEMICAL PACKAGER - TIFFANY Forman - 11/30/2024 5:02 PM [...] belt, RW Weight Bearing Status: WBAT RLE Telemetry/Wild Life Manager: No Oxygen Used: 2L Other: fall risk [...] (x2 with HOB elevated, maxcues for sequencing, [place] assist for hand placement, max A for trunk righting and LE transition to EOB.) Sit to Supine: (pt remained in recliner at end of session.) Other: pt requires much increased time/effort with max A x 2 for supine to sit this date requiring encouragement to participate as pt would prefer real estate underwriter assist. pt retired to recliner at [...] Patient will perform bed mobility with Modified Calvin Dates: Start: 11/28/24 Expected End: 12/26/24 Description: Goal Description: Disciplines: OT Outcomes Date/Time User Outcome 11/29/24 1605 SARAH Lopez/Alexsander Progressing 11/29/24 1042 SARAH Lopez/Alexsander Progressing Problem: Dressing LB Dates: Start: 11/28/24 Disciplines: OT Goal: Patient will perform dressing LB with Modified Calvin Dates: Start: 11/28/24 Expected End: 12/26/24 Description: [...] Patient will perform toilet transfers with Modified Calvin Dates: Start: 11/28/24 Expected End: 12/26/24 Description: Goal Description: Disciplines: OT Problem: Toileting Dates: Start: 11/28/24 Disciplines: OT Goal: Patient will perform toileting with Modified Calvin Dates: Start: 11/28/24 Expected End: 12/26/24 Description: Goal Description: Disciplines: OT Problem: Transfers Dates: Start: 11/28/24 Disciplines: OT Goal: Patient will perform transfers with Modified Calvin Dates: Start: 11/28/24 Expected End: 12/26/24 Description: Goal Description: Disciplines: OT Outcomes Date/Time User Outcome 11/29/24 1605 TIFFANY Lopez Progressing 11/29/24 1042 TIFFANY Lopez Progressing Occupational Therapy Care Plan (Resolved) There are no resolved problems. Principal Problem: Closed fracture of right hip, initial encounter ([facility]) Cosigned by PROSPER Mckinley/Alexsander at 12/01/2024 7:23 AM EDT Associated attestation - Kim Washington OTR/L - 12/01/2024 7:23 AM EDT I have reviewed and agree with this note and education documentation for this visit. * PT/OT/CHEMICAL PACKAGER - Nellie Ibarra PTA - 11/30/2024 1:58 [...] belt, RW Weight Bearing Status: WBAT RLE Telemetry/Wild Life Manager: No Oxygen Used: 2L Other: fall risk [...] encouragement to initiate movements rather than allow real estate underwriter to perform them for her. Pt [...] Weightbearing x (L<>R sitting- mirror technique with real estate underwriter sitting in front of pt) Seated [...] had difficulty correcting balance and posture with real estate underwriter's verbal cueing- required tactile and visual [...] PTA Not Progressing 11/29/24 1714 Nellie Ibarra MATERIAL MOVERS Progressing 11/29/24 1404 Nellie Ibarra PTA Progressing [...] Closed fracture of right hip, initial encounter ([facility]) Cosigned by Julia Tyson PT at 12/01/2024 7:50 AM EDT Associated Julia Sweet PT - 12/01/2024 7:50 AM EDT I have reviewed and agree with this note and education documentation for this visit. * PT/OT/CHEMICAL PACKAGER - TIFFANY Forman - 11/30/2024 10:45 AM EDT Occupational Therapy OT Type of Visit: Medical deferral Reason For Medical Deferral: Vitals outside safe parameters (ELEVATED BP PER RN) Cosigned by DOMENICA Mckinley at 12/01/2024 7:23 AM EDT Associated Kim Oro OTR/L - 12/01/2024 7:23 AM EDT I have reviewed and agree with this note and education documentation for this visit. * PT/OT/CHEMICAL PACKAGER - Nellie Ibarra PTA - 11/30/2024 9:20 [...] Description: INTERVENTIONS: 1. Encourage patient or legal hobbies and crafts sales representative to report early pain and [...] per policy 9. Teach patient or legal hobbies and crafts sales representative interventions for comforting Outcome: Progressing [...] at the bedside 7. Instruct patient/ patient hobbies and crafts sales representative about use of safety devices 8. Include patient/ patient hobbies and crafts sales representative in decisions related to safety [...] Description: INTERVENTIONS: 1. Encourage patient or legal hobbies and crafts sales representative to report early pain and [...] per policy 9. Teach patient or legal hobbies and crafts sales representative interventions for comforting 11/30/2024 0907 by [...] at the bedside 7. Instruct patient/ patient hobbies and crafts sales representative about use of safety devices 8. Include patient/ patient hobbies and crafts sales representative in decisions related to safety 11/30/2024 [...] Description: INTERVENTIONS: 1. Encourage patient or legal hobbies and crafts sales representative to report early pain and [...] per policy 9. Teach patient or legal hobbies and crafts sales representative interventions for comforting Outcome: Progressing Note: Evaluation of progress towards goal: Patient states pain is well controlled with PRN pain medication. Patient does not complain of any pain at this time. * PT/OT/CHEMICAL PACKAGER - SARAH Lopez/Alexsander Broussard 11/29/2024 4:31 PM [...] belt, RW Weight Bearing Status: WBAT RLE Telemetry/Wild Life Manager: No Oxygen Used: room air (applied 2L [...] difficulty coming to standing d/t poor technique. Bark Press Operator demonstrated rocking technique for momentum with good [...] Outcomes Date/Time User Outcome 11/29/24 1605 Jodie rBown SMITH/L Progressing 11/29/24 1042 Jodie Brown SMITH/L [...] Patient will perform bed mobility with Modified Calvin Dates: Start: 11/28/24 Expected End: 12/26/24 Description: Goal Description: Disciplines: OT Outcomes Date/Time User Outcome 11/29/24 1605 Jodie Brown SMITH/L Progressing 11/29/24 1042 DONNA LopezA/Alexsander Progressing Problem: Dressing LB Dates: Start: 11/28/24 Disciplines: OT Goal: Patient will perform dressing LB with Modified Calvin Dates: Start: 11/28/24 Expected End: 12/26/24 Description: [...] OT Outcomes Date/Time User Outcome 11/29/24 1605 Joide Brown SMITH/L Progressing 11/29/24 1042 Jodie Brown [...] Patient will perform toilet transfers with Modified Calvin Dates: Start: 11/28/24 Expected End: 12/26/24 Description: Goal Description: Disciplines: OT Problem: Toileting Dates: Start: 11/28/24 Disciplines: OT Goal: Patient will perform toileting with Modified Calvin Dates: Start: 11/28/24 Expected End: 12/26/24 Description: Goal Description: Disciplines: OT Problem: Transfers Dates: Start: 11/28/24 Disciplines: OT Goal: Patient will perform transfers with Modified Calvin Dates: Start: 11/28/24 Expected End: 12/26/24 Description: Goal Description: Disciplines: OT Outcomes Date/Time User Outcome 11/29/24 1605 DONNA LopezA/Alexsander Progressing 11/29/24 1042 DONNA LopezA/Alexsander Progressing Occupational Therapy Care Plan (Resolved) There are no resolved problems. Principal Problem: Closed fracture of right hip, initial encounter ([facility]) Cosigned by MEL Thomas at 11/30/2024 6:53 AM EDT Associated attestation - Sharon Napier OT/L - 11/30/2024 6:53 AM EDT I have reviewed and agree with this note and education documentation for this visit. * PT/OT/CHEMICAL PACKAGER - Nellie Ibarra PTA - 11/29/2024 2:17 [...] 6 Clicks: Basic Mobility Raw Score: 12 [facility] G Code Modifier: CL Therapy Plan PT [...] catheter Weight Bearing Status: WBAT R LE Telemetry/Wild Life Manager: No Oxygen Used: room air (inc to [...] Closed fracture of right hip, initial encounter ([facility]) Cosigned by Connor Carreon PT at 11/30/2024 6:50 AM EDT Associated attestation - Connor Carreon, PT - 11/30/2024 6:50 AM EDT I have reviewed and agree with this note and education documentation for this visit. * PT/OT/CHEMICAL PACKAGER - SARAH Lopez/Alexsander - 11/29/2024 11:12 AM [...] female ex-cath Weight Bearing Status: WBAT RLE Telemetry/Wild Life Manager: No Oxygen Used: 2L Other: fall risk [...] Patient will perform bed mobility with Modified Calvin Dates: Start: 11/28/24 Expected End: 12/26/24 Description: Goal Description: Disciplines: OT Outcomes Date/Time User Outcome 11/29/24 Saskia SARAH Lopez/Alexsander Progressing Problem: Dressing LB Dates: Start: 11/28/24 Disciplines: OT Goal: Patient will perform dressing LB with Modified Calvin Dates: Start: 11/28/24 Expected End: 12/26/24 Description: [...] Patient will perform toilet transfers with Modified Calvin Dates: Start: 11/28/24 Expected End: 12/26/24 Description: Goal Description: Disciplines: OT Problem: Toileting Dates: Start: 11/28/24 Disciplines: OT Goal: Patient will perform toileting with Modified Calvin Dates: Start: 11/28/24 Expected End: 12/26/24 Description: Goal Description: Disciplines: OT Problem: Transfers Dates: Start: 11/28/24 Disciplines: OT Goal: Patient will perform transfers with Modified Calvin Dates: Start: 11/28/24 Expected End: 12/26/24 Description: Goal Description: Disciplines: OT Outcomes Date/Time User Outcome 11/29/24 104Riccardo TIFFANY Lopez Progressing Occupational Therapy Care Plan (Resolved) There are no resolved problems. Principal Problem: Closed fracture of right hip, initial encounter ([facility]) Cosigned by Sharon Napier OT/L at 11/29/2024 11:47 AM EDT Associated attestation - Sharon Napier OT/L - 11/29/2024 11:47 AM EDT I have reviewed and agree with this note and education documentation for this visit. * PT/OT/CHEMICAL PACKAGER - Nellie Ibarra PTA - 11/29/2024 8:48 [...] catheter Weight Bearing Status: WBAT R LE Telemetry/Wild Life Manager: No Oxygen Used: 2L Other: Fall risk [...] Goal Note filed on 11/29/24 140 by eNllie Ibarra PTA Evaluation of progress towards goal: [...] PT Outcomes Date/Time User Outcome 11/29/241403 Nellie bIarra PTA Progressing Goal Note filed on 11/29/24 140 by Nellie Ibarra PTA Evaluation of progress towards goal: Physical Therapy Care Plan (Resolved) There are no resolved problems. Principal Problem: Closed fracture of right hip, initial encounter ([facility]) Cosigned by Johana Flores PT at 11/29/2024 [...] Description: INTERVENTIONS: 1. Encourage patient or legal hobbies and crafts sales representative to report early pain and [...] per policy 9. Teach patient or legal hobbies and crafts sales representative interventions for comforting Outcome: Progressing [...] at the bedside 7. Instruct patient/ patient hobbies and crafts sales representative about use of safety devices 8. Include patient/ patient hobbies and crafts sales representative in decisions related to safety [...] Description: INTERVENTIONS: 1. Encourage patient or legal hobbies and crafts sales representative to report early pain and [...] per policy 9. Teach patient or legal hobbies and crafts sales representative interventions for comforting Outcome: Progressing [...] at the bedside 7. Instruct patient/ patient hobbies and crafts sales representative about use of safety devices 8. Include patient/ patient hobbies and crafts sales representative in decisions related to safety [...] hygiene technique. 7. Identify and instruct patient/patient hobbies and crafts sales representative in use of appropriate isolation precautionsfor identified infection/symptoms. 8. Provide and discuss with patient/patient hobbies and crafts sales representative on educational MDRO sheet. 9. Encourage and monitor nutritional status daily and consult certified corporate travel executive if indicated. 10. Implement neutropenic guidelines as needed. Outcome: Progressing Note: Evaluation of progress towards goal: monitor for signs and symptoms of infection Problem: Knowledge Deficit Goal: Patient/patient hobbies and crafts sales representative demonstrates understanding of disease process, [...] be free from fall Description: Interventions: 1. [place] to environment 2. Hourly rounds addressing the [...] non-skid footwear 11. Teach patient and patient hobbies and crafts sales representative to maintain environment for safety [...] (cane, walker) within reach 19. Request patient hobbies and crafts sales representative bring adaptive equipment/mobility aids from home or obtain and provide as needed 20. Consult pharmacy regarding effects of med's affecting mobility, cognition, and alternatives 21. Obtain physician order for PT if risk factors associated with mobility are present 22. Obtain physician order for OT as appropriate 23. Utilize diversional activities 24. Educate patient and patient hobbies and crafts sales representative how to maintain a safe environment during visitationtimes (notify nurse prior to leaving bedside) 25. Consider appropriateness of medical or non-medical voucher clerk 26. Set up voiding schedule as appropriate [...] Auth approved for admission to : [facility] (P# [phone] ; F# ) Approval # [id number] Valid for Dates: 11/28/2024 - 12/04/2024 * Discharge Planning Note - Celi Verdin - 11/28/2024 3:29 PM EDT DISCHARGE PLANNING NOTE Prior auth submitted to: [employer] Via: Johanne On behalf of : [facility] (P# ; F# ) We will provide reference number when available. * PT/OT/CHEMICAL PACKAGER - Lisa Gonzalez, PT - 11/28/2024 2:47 [...] hospitalization. Pt resides in assisted living at [facility]. She was using her walker and fell. She presented to [place] ED with Rt hip pain. Imaging showed Rt subcapital femoral neck fx. Pt was then transferred to [facility] for higher level of care. On 11/27/24 she underwent Rt hip hemiarthroplasty. She is WBAT RLE. Chief Complaint Patient presents with Fall Past Medical History: Diagnosis Date CHF (congestive heart failure) ([facility]) Chronic kidney disease Coronary artery disease Dental disease Diabetes mellitus type 2, controlled ([facility]) Dizziness GERD (gastroesophageal reflux disease) Hyperlipidemia Hypertension Myocardial infarction ([facility]) Prolonged emergence from general anesthesia Past Surgical History: Procedure Laterality Date CHOLECYSTECTOMY CORONARY STENT PLACEMENT ESOPHAGOSCOPY HEMIARTHROPLASTY HIP Right 11/27/2024 Performed by Kirby Cueva MD at [facility] LAPAROSCOPIC HYSTERECTOMY OOPHORECTOMY OVARIAN CYST SURGERY [...] belt, rw Weight Bearing Status: WBAT RLE Telemetry/Wild Life Manager: No Oxygen Used: 3L NC Other: fall [...] Closed fracture of right hip, initial encounter ([facility]) * Discharge Planning Note - LOVELY Ulloa - 11/28/2024 2:21 PM EDT DC plan SNF: [facility] accepted pt. Tasked to [facility] to start pre-cert. BLS tx cert in [...] Discharge Disposition SNF SNF Name [facility] SNF Accepted? Yes Does the patient need discharge transportation arranged? Yes Transportation Arranged Ambulance Patient choice offered Yes List Provided Yes [facility] List Provided Alf Facility Respiratory Indicator Does the patient currently have home respiratory equipment? No Will the patient need home respiratory equipment upon discharge? No, it is expected that patient will NOT discharge home with respiratory DME needs * PT/OT/CHEMICAL PACKAGER - Halle Lea OT/L - 11/28/2024 2:21 [...] fell at her [facility] She presented to [place] ED with Rt hip pain. Imaging showed Rt subcapital femoral neck fx. Pt was then transferred to [facility] for higher level of care. On 11/27/24 she underwent Rt hip hemiarthroplasty. She is WBAT RLE. Patient lives in apartment in [facility], uses 4ww at baseline, has [...] and be able to safely return to [facility]. . Past Surgical History: Procedure Laterality Date CHOLECYSTECTOMY CORONARY STENT PLACEMENT ESOPHAGOSCOPY HEMIARTHROPLASTY HIP Right 11/27/2024 Performed by Kirby Cueva MD at [facility] LAPAROSCOPIC HYSTERECTOMY OOPHORECTOMY OVARIAN CYST SURGERY . Past Medical History: Diagnosis Date CHF (congestive heart failure) ([facility]) Chronic kidney disease Coronary artery disease Dental disease Diabetes mellitus type 2, controlled ([facility]) Dizziness GERD (gastroesophageal reflux disease) Hyperlipidemia Hypertension Myocardial infarction ([facility]) Prolonged emergence from general anesthesia 6 Clicks: [...] Home Living Type of Home: Assisted living ([facility]) Home Layout: One level Stairs to Enter: 0 Bathroom Shower/Tub: Walk-in shower Bathroom Toilet: Raised (Has toilet riser) Bathroom Equipment: Shower chair, Hand-held shower, Grab bars in shower, Grab bars around toilet, Commode (Uses bedside commode next to bed at night) Home Equipment: 4 Wheeled walker, Wheelchair-manual Other : Patient lives in apartment in [facility], uses 4ww at baseline, has own accessible bathroom with grab bars and shower chair to walk in shower, gets assist for meds and showers, was ind with other ADLs, local dtr assists as needed for shopping/transportation. Prior Function Lives With: Other (Comment) ([facility], lives alone in her own apartment) Receives Help From: (staff assit with meds and shower and as needed for taking out trash if too heavy for patient to put on her rollator. Dtr, Mandy assists with shopping and transportation.) Level of Mobility: Needs assistance with ADLs or functional transfers or gait Homemaking Assistance: Needs assistance Other: Patient lives in apartment in [facility], uses 4ww at baseline, has [...] Patient will perform bed mobility with Modified Calvin Dates: Start: 11/28/24 Expected End: 12/26/24 Description: Goal Description: Disciplines: OT Problem: Dressing LB Dates: Start: 11/28/24 Disciplines: OT Goal: Patient will perform dressing LB with Modified Calvin Dates: Start: 11/28/24 Expected End: 12/26/24 Description: [...] Patient will perform toilet transfers with Modified Calvin Dates: Start: 11/28/24 Expected End: 12/26/24 Description: Goal Description: Disciplines: OT Problem: Toileting Dates: Start: 11/28/24 Disciplines: OT Goal: Patient will perform toileting with Modified Calvin Dates: Start: 11/28/24 Expected End: 12/26/24 Description: Goal Description: Disciplines: OT Problem: Transfers Dates: Start: 11/28/24 Disciplines: OT Goal: Patient will perform transfers with Modified Calvin Dates: Start: 11/28/24 Expected End: 12/26/24 Description: Goal Description: Disciplines: OT Occupational Therapy Care Plan (Resolved) There are no resolved problems. Principal Problem: Closed fracture of right hip, initial encounter ([facility]) * PT/OT/CHEMICAL PACKAGER - Lisa Gonzalez, PT - 11/28/2024 10:43 AM EDT Physical Therapy PT Type of Visit: Medical deferral Reason For Medical Deferral: Off unit (2nd attempt to see pt she is still in echo. Will try back asable.) * PT/OT/CHEMICAL PACKAGER - Lisa Gonzalez, PT - 11/28/2024 10:42 AM EDT Physical Therapy PT Type of Visit: Medical deferral Reason For Medical Deferral: Off unit (2nd attempt to see pt she is still in echo. Will try back asable.) * PT/OT/CHEMICAL PACKAGER - Kim Washington OTR/L - 11/28/2024 10:41 [...] Description: INTERVENTIONS: 1. Encourage patient or legal hobbies and crafts sales representative to report early pain and [...] per policy 9. Teach patient or legal hobbies and crafts sales representative interventions for comforting Outcome: Progressing [...] at the bedside 7. Instruct patient/ patient hobbies and crafts sales representative about use of safety devices 8. Include patient/ patient hobbies and crafts sales representative in decisions related to safety [...] Description: INTERVENTIONS: 1. Encourage patient or legal hobbies and crafts sales representative to report early pain and [...] per policy 9. Teach patient or legal hobbies and crafts sales representative interventions for comforting Outcome: Progressing [...] at the bedside 7. Instruct patient/ patient hobbies and crafts sales representative about use of safety devices 8. Include patient/ patient hobbies and crafts sales representative in decisions related to safety Outcome: Progressing Note: Evaluation of progress towards goal: call light within reach, bed in lowest position, patientwearing nonslip footwear Problem: Knowledge Deficit Goal: Patient/patient hobbies and crafts sales representative demonstrates understanding of disease process, [...] Score of =/> 25 or indicated by [facility] Assessment Goal: Patient should be free from fall Description: Interventions: 1. [place] to environment 2. Hourly rounds addressing the [...] non-skid footwear 11. Teach patient and patient hobbies and crafts sales representative to maintain environment for safety [...] (cane, walker) within reach 19. Request patient hobbies and crafts sales representative bring adaptive equipment/mobility aids from home or obtain and provide as needed 20. Consult pharmacy regarding effects of med's affecting mobility, cognition, and alternatives 21. Obtain physician order for PT if risk factors associated with mobility are present 22. Obtain physician order for OT as appropriate 23. Utilize diversional activities 24. Educate patient and patient hobbies and crafts sales representative how to maintain a safe environment during visitationtimes (notify nurse prior to leaving bedside) 25. Consider appropriateness of medical or non-medical voucher clerk 26. Set up voiding schedule as appropriate [...] DISCHARGE PLANNING NOTE Referral sent to [facility] (P# ; F# ) * Op Note - Kirby Cueva MD - 11/27/2024 12:19 PM EDT ORTHOPAEDIC SURGERY OPERATIVE REPORT Date of Surgery: 11/27/2024 Surgeon: Kirby Cueva MD Voice Pathologist: Inocencia Kearney PA-C A skilled orthopedic physician wet process miller head assistant was needed for assistance during this [...] hip hemiarthroplasty for femoral neck fracture (CPT 41325) Intraoperative fluoroscopy with surgeon interpretation, less than 1 hour (CPT 44344) Anesthesia: General IV Fluids: Per anesthesia record Tourniquet Time: None Estimated Blood Loss: 150 mL Complications: None Implants: Pipe Biomet Taperloc size 8 high offset femoral stem Ippe Biomet 44 mm femoral head with +0 mm taper Implant Name Type Inv. Item Serial No. Hot Metal Mixer Operator Helper Lot No. LRB No. Used Action STEM FEM 136MM 8MM 133D HI OS TPR TPRLK PPS TI HIP PRFT FULL - SN/A - [id number] Orthopedic ImplantSTEM FEM 136MM 8MM 133D HI OS TPR TPRLK PPS TI HIP PRFT FULL N/A Pipe Biomet [id number] Right 1 Implanted INSERT ACTB STD TPR HIP E-2 - SN/A - [id number] Orthopedic Implant INSERT ACTB STD TPR HIP E-2 N/A Pipe Biomet [id number] Right 1 Implanted HEAD UNPLR 44MM BIOMR II E-2 HIP COCRMO MDLR - SN/A - [id number] Orthopedic Implant HEAD UNPLR [id number] II E-2 HIP COCRMO MDLR N/A Pipe Biomet [id number] Right 1 Implanted Drains: None Specimens: None [...] the canal with the use of a crepe box tender osteotome and used a curette to remove [...] alert, oriented during assessment. Pt transferred to [facility] from [facility] where pt presented with c/o hip pain after fall. Pt states she tripped over her walker. Pt found to have R hip fracture. Pt will be going to OR today. Patient lives in assisted living apartment [facility] in [place]. Pt reports she uses walker for ambulation. Pt reports she is mostly independent with ADL's but does need assistance with bathing. No current home care outside of [place] staff that assist her. Pt denied any concern getting or affording medications or food. Pt PCP and pharmacy verified. Pt denied any home oxygen. Pt denied any tobacco, alcohol or illicit drug use. DC Plan will be SNF: per pt and dtr they know pt will need a rehab stay prior to returning to her [place]. Pt/dtr would like [facility] as her 1st choice as pt has [...] of Residence Assisted living Care Facility Name [facility] in [facility] Services No Does The Patient Have Existing [...] Yes List Provided Yes CarePort List Provided Alf Facility 3-Midnight Additional Comments (If Applicable) * Plan of Care - Terra Etienne RN - 11/27/2024 9:10 AM EDT Problem: Pain Goal: Patient goal is pain score less than 4, able to rest, and participant in treatment plan as appropriate Description: INTERVENTIONS: 1. Encourage patient or legal hobbies and crafts sales representative to report early pain and [...] per policy 9. Teach patient or legal hobbies and crafts sales representative interventions for comforting Outcome: Progressing [...] at the bedside 7. Instruct patient/ patient hobbies and crafts sales representative about use of safety devices 8. Include patient/ patient hobbies and crafts sales representative in decisions related to safety Outcome: Progressing Note: Evaluation of progress towards goal: RN implementing the above precautions to maintain pt safety. Pt remains free from falls and injuries since beginning of shift. Call light within reach. Bed rails up x2. Orientation reviewed. Hourly rounded maintained. Proper use of double identifiers used.Standard precautions maintained. * PT/OT/CHEMICAL PACKAGER - Lisa Gonzalez, PT - 11/27/2024 7:58 AM EDT Physical Therapy PT Type of Visit: Medical deferral Reason For Medical Deferral: Medical procedure ongoing (Pt has pending sx for repair of hip fx.) * PT/OT/CHEMICAL PACKAGER - Kim [place] OTR/Alexsander - 11/27/2024 7:26 [...] Description: INTERVENTIONS: 1. Encourage patient or legal hobbies and crafts sales representative to report early pain and [...] per policy 9. Teach patient or legal hobbies and crafts sales representative interventions for comforting Outcome: Progressing [...] at the bedside 7. Instruct patient/ patient hobbies and crafts sales representative about use of safety devices 8. Include patient/ patient hobbies and crafts sales representative in decisions related to safety [...] hygiene technique. 7. Identify and instruct patient/patient hobbies and crafts sales representative in use of appropriate isolation precautionsfor identified infection/symptoms. 8. Provide and discuss with patient/patient hobbies and crafts sales representative on educational MDRO sheet. 9. Encourage and monitor nutritional status daily and consult certified corporate travel executive if indicated. 10. Implement neutropenic guidelines as needed. Outcome: Progressing Note: Evaluation of progress towards goal: monitor for signs and symptoms of infection Problem: Knowledge Deficit Goal: Patient/patient hobbies and crafts sales representative demonstrates understanding of disease process, [...] Score of =/> 25 or indicated by [facility] Assessment Goal: Patient should be free from fall Description: Interventions: 1. [place] to environment 2. Hourly rounds addressing the [...] non-skid footwear 11. Teach patient and patient hobbies and crafts sales representative to maintain environment for safety [...] (cane, walker) within reach 19. Request patient hobbies and crafts sales representative bring adaptive equipment/mobility aids from home or obtain and provide as needed 20. Consult pharmacy regarding effects of med's affecting mobility, cognition, and alternatives 21. Obtain physician order for PT if risk factors associated with mobility are present 22. Obtain physician order for OT as appropriate 23. Utilize diversional activities 24. Educate patient and patient hobbies and crafts sales representative how to maintain a safe environment during visitationtimes (notify nurse prior to leaving bedside) 25. Consider appropriateness of medical or non-medical voucher clerk 26. Set up voiding schedule as appropriate (every 2 hours) Outcome: Progressing Note: Evaluation of progress towards goal: hourly rounding, provide assistive device, assist with ambulation documented in this encounterDoctors HospitalCardiva Medical [id number] Hospital course Narrative* Yasmin Goodrich MD - 12/01/2024 1:29 PM EDT Images from the original note were not included. [facility] Medicine Discharge Summary DISCHARGE NOTE Demographics: Patient Name: Rivka Turner : 1945 DATE OF ADMISSION: 11/26/2024 DATE OF DISCHARGE: 12/01/2024 DISCHARGE DIAGNOSES: Principal Problem: Closed fracture of right hip, initial encounter ([facility]) CONSULTANTS: Consulting Providers Provider Service Specialty Dane Pretty MD -- Nephrology PCP: Patient Care Team: Amador Abdalla MD as PCP - General ([facility]) HOSPITAL COURSE SUMMARY: Per HPI: This is a 79-year-old woman who has sustained a hip fracture transferred from [place] for intervention Mild acute kidney injury on [...] and Nephrology for further SPEP update and elementary school registrar said that he would get her in contact with the arrt technologist as included on the after visit summary [...] Adult diet Follow up: Dane Pretty MD [address] [facility] [id number] Follow up in 2 week(s) . Dane Pretty MD [facility] [email or web address] Please call for appointment for post discharge follow-up : Office phone Number: [phone] Office If lab work up has not been ordered before appointment , please call office above and Labs will be ordered for you so that when you come for appointment we have lab results , have results faxed to the office please Jon Pretty MD [id number] [facility] [id number] Follow up in 2 week(s) For Iron infusion Amador Abdalla MD [address] [place] [address] Schedule an appointment as soon as possible [...] can correct any mistakes. documented in this encounterAdams [facility] Hospital10-13-2025 History of Present illness Narrative* Dane Pretty MD - 12/01/2024 11:22 AM EDT Images from the original note were not included. Justin Abbasi [facility], [facility] Nephrology Progress Note Patient Name: Rivka Turner [...] in 3 weeks; Address [address], [address], [place] [address], Phone office: [phone] Thank you for this consultation ADNE PRETTY MD on 12/01/2024 at 11:22 AM [facility] [email or web address] Schedule : See Epic on-call schedule for [facility] ( [facility] ) Nephrology Working Hours : Epic chat during working hours, if no response please use on- call physician reach out as below After Hours : Answering service contact : [phone] Subjective Seen at bedside, no acute distress no chest pain or worsening of shortness of breath reported, no new complaint. Plan discussed in detail at bedside all questions answered in detail appropriate counseling done. Past Medical History: Diagnosis Date CHF (congestive heart failure) ([facility]) Chronic kidney disease Coronary artery disease Dental disease Diabetes mellitus type 2, controlled ([facility]) Dizziness GERD (gastroesophageal reflux disease) Hyperlipidemia Hypertension Myocardial infarction ([facility]) Prolonged emergence from general anesthesia Past Surgical History: Procedure Laterality Date CHOLECYSTECTOMY CORONARY STENT PLACEMENT ESOPHAGOSCOPY HEMIARTHROPLASTY HIP Right 11/27/2024 Performed by Kirby Cueva MD at [facility] LAPAROSCOPIC HYSTERECTOMY OOPHORECTOMY OVARIAN CYST SURGERY [...] Resource Strain: Low Risk (01/22/2024) Received from [facility] Overall Financial Resource Strain (CARDIA) Difficulty of Paying Living Expenses: Not very hard Food Insecurity: No Food Insecurity (11/26/2024) Hunger Screening Food Insecurity - Worry: Never True Food Insecurity - Inability: Never True Transportation Needs: No Transportation Needs (11/26/2024) PRAPARE - Transportation Lack of Transportation (Medical): No Lack of Transportation (Non-Medical): No Physical Activity: Inactive (01/22/2024) Received from [facility] Exercise Vital Sign Days of Exercise per Week: 0 days Minutes of Exercise per Session: 0 min Stress: Stress Concern Present (01/22/2024) Received from [facility] [place] of Occupational Health - Occupational Stress Questionnaire Feeling of Stress : To some extent Social Connections: Moderately Isolated (01/22/2024) Received from [facility] Social Connection and Isolation Panel [NHANES] Frequency of Communication with Friends and Family: Three times a week Frequency of Social Gatherings with Friends and Family: Twice a week Attends Amish Services: 1 to 4 times per year [...] HYDROmorphone ondansetron oxyCODONE oxyCODONE perflutren lipid microspheres (DEFINHitlantis) dilution injection 1.43 mg/10 mL sodium chloride [...] has sustained a hip fracture transferred from [place] for intervention Mild acute kidney injury on [...] tablet 250 mg 250 mg oral Q12H [facility] Inocencia Kearney PA-C 250 mg [...] injection 5,000 Units 5,000 Units subcutaneous Q8H [facility] HELLEN RameshC 5,000 Units at [...] Closed fracture of right hip, initial encounter ([facility]) Imaging Imaging has been reviewed in detail [...] no distress. HEENT: Atraumatic, normocephalic. Anicteric sclera. [place] and moist oral mucosa. No carotid bruit. No JVD. Chest: Bilateral air entry, clear to auscultation, no wheezing, rhonchi or rales. Cardiovascular: RRR, S1S2, no murmur, rub or gallop. Has lower extremity edema. Abdomen: Soft, non tender to palpation. Active bowel sounds x 4 quadrants. Musculoskeletal: Active ROM x 4 extremities. No cyanosis or clubbing. Integumentary: [place], warm and dry. Free from rash or lesions. Skin turgor normal. BUSINESS RELATIONS MANAGER: Oriented to person, place and time. Speech [...] has sustained a hip fracture transferred from [place] for intervention Mild acute kidney injury on [...] tablet 250 mg 250 mg oral Q12H [facility] Inocencia Kearney PA-C cholecalciferol (vitamin [...] injection 5,000 Units 5,000 Units subcutaneous Q8H [facility] Inocencia Kearney PA-C 5,000 Units at 11/29/24 [...] (H) <120 mg/L URINE CREATININE,RDM 83.62 mg/dL U/PRO/SHUTTLER CAR RATIO CALC 1.52 (H) <=0.20 Narrative Nephrotic [...] Closed fracture of right hip, initial encounter ([facility]) Imaging Imaging has been reviewed in detail [...] Quinn RP - 11/29/2024 1:40 PM EDT [facility] Department of Pharmacy Pharmacist to Physician Communication The dose of cefuroxime for surgical prophylaxis has been changed to 250 mg every 12 hours per the [facility] approved renal dosing guidelines, based on an [...] no distress. HEENT: Atraumatic, normocephalic. Anicteric sclera. [place] and moist oral mucosa. No carotid bruit. No JVD. Chest: Bilateral air entry, clear to auscultation, no wheezing, rhonchi or rales. Cardiovascular: RRR, S1S2, no murmur, rub or gallop. Has lower extremity edema. Abdomen: Soft, non tender to palpation. Active bowel sounds x 4 quadrants. Musculoskeletal: Active ROM x 4 extremities. No cyanosis or clubbing. Integumentary: [place], warm and dry. Free from rash or lesions. Skin turgor normal. BUSINESS RELATIONS MANAGER: Oriented to person, place and time. Speech [...] has sustained a hip fracture transferred from [place] for intervention Mild acute kidney injury on [...] tablet 500 mg 500 mg oral Q12H [facility] Inocencia Kearney PA-C cholecalciferol (vitamin [...] injection 5,000 Units 5,000 Units subcutaneous Q8H [facility] Inocencia Kearney PA-C 5,000 Units [...] range has not been established by the refuse collector supervisor of this kit. The [place] [employer] recommends a Vitamin D [...] range has not been established by the refuse collector supervisor of this kit. The [place] [employer] recommends a Vitamin D [...] (H) <120 mg/L URINE CREATININE,RDM 83.62 mg/dL U/PRO/SHUTTLER CAR RATIO CALC 1.52 (H) <=0.20 Narrative Nephrotic [...] Closed fracture of right hip, initial encounter ([facility]) Imaging Imaging has been reviewed in detail [...] Dispo planning - noted PT/OT recommendations for nursing home facility Okay for discharge from orthopedic standpoint [...] Medicine Progress Note: 11/27/2024 Patient Name: Rivka Turner : 1945 Assessment and Plan: This is a 79-year-old woman who has sustained a hip fracture transferred from [place] for intervention Mild acute kidney injury on [...] iso-osmotic dextrose (40 mg/mL premix) 2,000 mg [id number] Inocencia Kearney PA-C [START ON 11/28/2024] ceFUROxime [...] mg 5 mg intravenous Q10 Min PRN aMninder Claire MD [Transfer Hold] HYDROmorphone (DILAUDID) injection [...] 2.5 mg 2.5 mg oral Q4H PRN Gonzlao Rolle MD [Transfer Hold] oxyCODONE (ROXICODONE) immediate [...] Procedure Abnormality Status --------- ------ Light Blue Top[[id number]] Final result SST TOP[[id number]] Final result Please view results for these [...] range has not been established by the refuse collector supervisor of this kit. The [place] [employer] recommends a Vitamin D [...] range has not been established by the refuse collector supervisor of this kit. The [place] [employer] recommends a Vitamin D [...] range has not been established by the refuse collector supervisor of this kit. The [place] [employer] recommends a Vitamin D [...] Closed fracture of right hip, initial encounter ([facility]) Imaging Imaging has been reviewed in detail [...] MD 11:52 AM 11/27/2024 documented in this encounterAdams County Hospital10-10-2025 Consult note* NICOLE Cotton - 11/28/2024 [...] Closed fracture of right hip, initial encounter ([facility]) Past Medical History: Past Medical History: Diagnosis Date CHF (congestive heart failure) ([facility]) Chronic kidney disease Coronary artery disease Dental disease Diabetes mellitus type 2, controlled ([facility]) Dizziness GERD (gastroesophageal reflux disease) Hyperlipidemia Hypertension Myocardial infarction ([facility]) Prolonged emergence from general anesthesia Past Surgical History: Past Surgical History: Procedure Laterality Date CHOLECYSTECTOMY CORONARY STENT PLACEMENT ESOPHAGOSCOPY HEMIARTHROPLASTY HIP Right 11/27/2024 Performed by Kirby Cueva MD at [facility] LAPAROSCOPIC HYSTERECTOMY OOPHORECTOMY OVARIAN CYST SURGERY [...] (H) 03/19/2024 Lab Results Component Value Date [id number] 11/26/2024 Lab Results Component Value Date [...] tablet 500 mg 500 mg oral Q12H [facility] Inocencia Kearney PA-C cholecalciferol (vitamin [...] injection 5,000 Units 5,000 Units subcutaneous Q8H [facility] Inocencia Kearney PA-C 5,000 Units [...] Skin (per nursing flow sheets): Skin Color: [place] (11/28/24819) Skin Temp: Warm; Dry (11/28/24819) Wound [...] (Bed Scale, 11/27) Usual Body Weight: - [place]k Body Weight: 54.5kg Percent [place] Body Weight: 139 Weight Changes: stable per above Body Mass Index: Body mass index is 31.07 kg/m . BMI Category: Obese class 1 (30.00- 34.99) Comparative Standards: Estimated Energy Needs: 2808-8303 kcals daily. Method and weight used: 25-30 kcal/kg IBW Estimated Protein Needs: 65-90 grams daily. Method and weight used: 1.2-2g protein/kg IBW Estimated Fluid Needs: 6471-7598 ml daily. Method weight used: 25-30 ml/kg [...] Gabriella Olvera R.D,L.D. Clinical dietitian Patient Touch extension:[phone] Direct Dial phone number: [phone] 11/28/24 11:43 AM * Dane Pretty MD - 11/28/2024 6:54 AM EDTAssociated Order(s): IP CONSULT TO NEPHROLOGY Images from the original note were not included. Justin Abbasi [facility] [place], [facility] Nephrology Consultation Note Patient Name: Rivka Turner [...] Justin Abbasi [facility] [email or web address] Schedule : See Epic on-call schedule for [facility] ( [facility] ) Nephrology Working Hours : Epic chat during working hours, if no response please use on- call physician reach out as below After Hours : Answering service contact : [phone] History of presenting illness 79-year-old female with [...] History: Diagnosis Date CHF (congestive heart failure) ([facility]) Chronic kidney disease Coronary artery disease Dental disease Diabetes mellitus type 2, controlled ([facility]) Dizziness GERD (gastroesophageal reflux disease) Hyperlipidemia Hypertension Myocardial infarction ([facility]) Prolonged emergence from general anesthesia Past Surgical [...] Resource Strain: Low Risk (01/22/2024) Received from [facility] Overall Financial Resource Strain (CARDIA) Difficulty of Paying Living Expenses: Not very hard Food Insecurity: No Food Insecurity (11/26/2024) Hunger Screening Food Insecurity - Worry: Never True Food Insecurity - Inability: Never True Transportation Needs: No Transportation Needs (11/26/2024) PRAPARE - Transportation Lack of Transportation (Medical): No Lack of Transportation (Non-Medical): No Physical Activity: Inactive (01/22/2024) Received from [facility] Exercise Vital Sign Days of Exercise per Week: 0 days Minutes of Exercise per Session: 0 min Stress: Stress Concern Present (01/22/2024) Received from [facility] [place] of Occupational Health - Occupational Stress Questionnaire Feeling of Stress : To some extent Social Connections: Moderately Isolated (01/22/2024) Received from [facility] Social Connection and Isolation Panel [NHANES] Frequency of Communication with Friends and Family: Three times a week Frequency of Social Gatherings with Friends and Family: Twice a week Attends Amish Services: 1 to 4 times per year [...] is a 79 y.o. female presents to [facility] with right hip pain. Patient states that she was walking too fast with her walker and fell onto her right side. She had immediate pain and inability to ambulate. She was seen at an outside hospital and subsequently transferred to the [facility] for definitive treatment. She denies pain [...] 1-5 Units, subcutaneous, TID with meals, Gonzalo oRlle MD ondansetron (PF) (ZOFRAN) injection 4 mg, 4 mg, intravenous, Q4H PRN, Gonzalo Rolle MD oxyCODONE (ROXICODONE) immediate release tablet 2.5 mg, 2.5 mg, oral, Q4H PRN, Gonzalo Rolle MD oxyCODONE (ROXICODONE) immediate release tablet 5 mg, 5 mg, oral, Q4H PRN, Gonzalo Rlole MD, 5 mgat 11/26/24 1743 sennosides-docusate sodium [...] 11/27/2024 11:52 AM EDT documented in this encounterAdams County Hospital10-09-2025 Hospital Discharge instructions* Discharge Instructions* Inocencia Kearney PA-C - 11/27/2024 11:59 AM EDT ORTHOPAEDIC DISCHARGE INSTRUCTIONS Diagnosis: Right femoral neck fracture Procedure: Right hip hemiarthroplasty Follow-Up Appointment: Dr. Cueva on Future Appointments Date Time Provider Department Center 12/10/2024 8:45 AM Kirby Cueva MD [facility] [place] Office Location: [facility] [address] [place], [place] [id number] RN: Julia Smith - Dr King RN: [...] * Hip fracture in adults Discharge instructions (Gibraltarian) * Osteoporosis and osteopenia (low bone mass) (Gibraltarian) * Preventing falls in adults (Gibraltarian) documented in this encounterAdams County Hospital10-08-2025 Emergency department Note* Loren Cui RN - 11/26/2024 7:18 PM EDT [facility] calls requesting update. Bark Press Operator stated patient was transferred to [facility] ER. * Mandy Gannon RN - 11/26/2024 5:18 PM EDT Bed: 41 Expected date: Expected time: Means of arrival: Comments: 29 * Gian Green DO - 11/26/2024 4:39 PM EDT Images from the original note were not included. [facility] - EMERGENCY DEPARTMENT Pt Name: Rivka Turner [...] Resource Strain: Low Risk (01/22/2024) Received from [facility] Overall Financial Resource Strain (CARDIA) Difficulty of Paying Living Expenses: Not very hard Food Insecurity: No Food Insecurity (11/26/2024) Hunger Screening Food Insecurity - Worry: Never True Food Insecurity - Inability: Never True Transportation Needs: No Transportation Needs (09/24/2024) Received from [facility] [place] - Transportation Lack of Transportation (Medical): No Lack of Transportation (Non-Medical): No Physical Activity: Inactive (01/22/2024) Received from [facility] Exercise Vital Sign Days of Exercise per Week: 0 days Minutes of Exercise per Session: 0 min Stress: Stress Concern Present (01/22/2024) Received from [facility] [employer] [place] of Occupational Health - Occupational Stress Questionnaire Feeling of Stress : To some extent Social Connections: Moderately Isolated (01/22/2024) Received from [facility] Social Connection and Isolation Panel [NHANES] Frequency of Communication with Friends and Family: Three times a week Frequency of Social Gatherings with Friends and Family: Twice a week Attends Amish Services: 1 to 4 times per year Active Member of Clubs or Organizations: No Attends Club or Organization Meetings: Never Marital Status: Received from [facility] [place] Safety & Environment Housing Instability: Low Risk (09/24/2024) Received from [facility] Housing Stability Vital Sign Unable to [...] Closed fracture of right hip, initial encounter ([facility]) . ED Disposition ED Disposition Admit Date/Time [...] I, Dr. Melia Green personally performed a [id number] diagnostic evaluation on this patient. I personally made and approved the management plan for this patient and take responsibility for the patient management. Additional Notes/Findings: Rivka Turner is a 79 y.o. female presenting to the ED for chief complaint of a fall. [facility] Denies injury anywhere else. Exam findings [...] EDT Pt to ED via EMS from [place]. EMS reports pt was walking too fast with walker and slipped and fellon [facility] Pt presented to [place] ER where she was found to have a right subcapital femoral neck fracture. Pt denies LOC or hitting head. Pt presents a&ox4, vss, and NAD noted. * Mandy Gannon RN - 11/26/2024 4:15 PM EDT Bed: 29 Expected date: Expected time: Means of arrival: [facility] Comments: 79 YO F from [facility] ER transfer Rivka Turner. 1945 A&Ox4 Tripped over walker trying to get to hair appt 50mcg Fent 79 y/o F. Right subcapital femoral neck fracture. Dr. Bhagat (orthopedic) accepted to ER. Dr. Ness aware of patient. Question, call Access @ [phone] EMS: 65 HR 95%RA 152/56 ETA 15 min Right hip pain 08/28 documented in this encounterVermont State HospitalRule.10-08-2025 History and physical note* Gonzalo Rolle MD [...] the emergency department after being transferred from [place]. Patient was walking too fast with her walker, sustained a fall and developedsevere right hip pain. Patient denies loss of consciousness. . Only severe right hip pain. X-ray ofher hip showed right subcapital femoral neck fracture and patient was transferred to [facility] for further management. Patient denies chest [...] Procedure Abnormality Status --------- ------ Light Blue Top[[id number]] Final result SST TOP[[id number]] Final result Please view results for these [...] Gonzalo Rolle MD4:41 PM documented in this encounterAdams County Hospital07-17-2025 History of Present illness Narrative* Turner [...] Bradycardia CAD (coronary artery disease) CAD in [place] artery Cerebrovascular disease Chronic constipation Chronic diastolic heart failure (HCC) Chronic sinusitis, unspecified location CVA (cerebral vascular accident) ([facility]) Depression Diabetes ([facility]) Dyslipidemia Fibromyalgia SCOTTY (generalized anxiety disorder) GERD (gastroesophageal reflux disease) Hiatal hernia HTN (hypertension) Hyperkalemia Hyperlipidemia Insomnia, persistent Kidney disease MDD (major depressive disorder), recurrent episode, mild Overflow incontinence Primary osteoarthritis of both knees Pulmonary hypertension ([facility]) Seasonal allergic rhinitis due to pollen Stage 3b chronic kidney disease (CKD) ([facility]) Type 2 diabetes mellitus with hyperglycemia, without long-term current use of insulin ([facility]) Vitamin D deficiency Medications: Current Outpatient Medications: [...] Disp: 90 tablet, Rfl: 3 Continuous Glucose Numerical Control Programmer (FreeStyle Violet 3 Pingree) device, 1 each continuously, Disp: 1 each, [...] minutes ifneeded., Disp: , Rfl: nystatin (Mycostatin) 028804 UNIT/GM powder, Apply 1 application topically in [...] 0 min Stress: Stress Concern Present (01/22/2024) [place] [employer] - Occupational Stress Questionnaire Feeling of Stress : To some extent Social Connections: Moderately Isolated (01/22/2024) Social Connection and Isolation Panel [NHANES] Frequency of Communication with Friends and Family: Three times a week Frequency of Social Gatherings with Friends and Family: Twice a week Attends Amish Services: 1 to 4 times per year Active Member of Clubs or Organizations: No Attends Club or Organization Meetings: Never Marital Status: Intimate Partner Violence: Unknown (04/12/2023) Received from [facility] [place] Safety & Environment Fear [...] and negative PT pedal pulses NEURO: 5.07 [place] John Paul monofilament test positive to digits and forefoot bilaterally 125Hz tuning fork positive to 1st MPJ bilaterally ORTHO: Positive pain on palpation to toenails of the left 1,2,3,4,5 toes and right 1,2,3,4,5 toes ASSESSMENT 1. Type 2 diabetes mellitus without complication, unspecified whether prison insulin use (HCC) 2. Pain due to [...] gear. Turner Wilkins DPM documented in this encounterHawthorn Children's Psychiatric [id number] NoteSpoke with patient and she agrees to nephrology referral. Faxed to [facility] in [place].[facility]07-10-20[facility] History of Present illness Narrative* Amador [...] hyperglycemia, without long-term current use of insulin ([facility]) - Primary Reports BS improved and due for A1C. Stick to ADA diet and limit carbs. Relevant Orders Hemoglobin A1c Benign essential hypertension BP low and c/o lightheadedness. Stop amlodipine and continue to monitor. Primary insomnia Not sleeping well without restoril and resume. documented in this encounterHawthorn Children's Psychiatric [id number] NoteUT Cardiology - [facility] Subjective Rivka Turner is a 79 y.o. year old female patient being seen for 1 year follow up. Patient states she feels ok. Patient complains of leg swelling Patient Active Problem List Diagnosis Coronary artery disease involving [place] coronary artery of [place] heart without angina pectoris CKD stage 4 [...] dehydration and JAKI, treated by hydration at [facility] and did well. Since then she has been feeling well and has been eating and drinking well and no longer takes trazodone and lasix is 40 mg daily. No chest pain and no dyspnea. Her Cr on 07/09/2017 was 1.96 and down to 1.7 on 07/10/2017. Update 11/16/2017: She is seen in follow up. Most recently she was admitted to [facility] with decompensated diastolic heart failure. She was diuresed, went into JAKI with Cr 2.0 but her renal function is improving. She was changed from lasix to bumex. She is very nervous. She reports that she was getting chest discomfort during the admission but is ok now. Echocardiogram 11/02/2017: Normal ventricular systolic function. Moderate diastolic dysfunction. Severely elevated right sided pressures. [facility] 11/05/2017: Cr 1.55; BUN 55. NT-proBNP 4184 [facility] 11/12/2017: BUN 42, Cr 1.47, K 4.5. Update 01/04/2018: She is seen in follow up. Last visit I saw her after her admission to [facility] with heart failure and she [...] 50% stenosis. Antegrade vertebral artery Doppler flows. [facility] 01/01/2018: Cr 1.65, BUN 40. K 3.9. Update 12/09/2018: She is seen in follow-up. Most recently she was admitted to the [facility] and transferred to [facility] due to decompensated diastolic heart failure in [...] all the time. Blo (more content not included)...[facility]05-24-2025 NotePatient Education Obstetrics and Gynecology Urinary [...] these instructions at home: Medicines ??? Take jacq-oyf-hcecxcp and prescription medicines only as told by [...] provider. Document Revised: 09/12/2020 Document Reviewed: 09/17/2020 scroll kit Patient Education ? 2023 [email or web address] 06-19-2024 History of Present illness Narrative* [...] CAD (coronary artery disease) (CMS/HCC) CAD in [place] artery (CMS/HCC) Cerebrovascular disease Chronic constipation Chronic diastolic heart failure (CMS/HCC) Chronic sinusitis, unspecified location CVA (cerebral vascular accident) ([facility]) Depression (CMS/HCC) Diabetes (CMS/HCC) Dyslipidemia (CMS/HCC) Fibromyalgia SCOTTY (generalized anxiety disorder) ([facility]) GERD (gastroesophageal reflux disease) Hiatal hernia HTN (hypertension) ([facility]) Hyperkalemia Hyperlipidemia ([facility]) Insomnia, persistent Kidney disease MDD (major depressive disorder), recurrent episode, mild (HCC) ([facility]) Overflow incontinence Primary osteoarthritis of both knees Pulmonary hypertension ([facility]) Seasonal allergic rhinitis due to pollen Stage 3b chronic kidney disease (CKD) ([facility]) Type 2 diabetes mellitus with hyperglycemia, without long-term current use of insulin ([facility]) Vitamin D deficiency Medications: Current Outpatient Medications: [...] Disp: 90 tablet, Rfl: 3 Continuous Glucose Numerical Control Programmer (FreeStyle Violet 3 Pingree) device, 1 each continuously, Disp: 1 each, [...] Disp: 90 tablet, Rfl: 3 glucose blood (imageloopuch Ultra Test) test strip, 1 each by Other route Daily Use as instructed, Disp: 50 each, Rfl: 11 hydrALAZINE (Apresoline) 100 MG tablet, TAKE 1 TABLET BY MOUTH THREE TIMES A DAY, Disp: 270 tablet,Rfl: 3 HYDROcodone-acetaminophen ([place]) 5-325 MG tablet, Take 1 tablet by [...] minutes ifneeded., Disp: , Rfl: nystatin (Mycostatin) 539207 UNIT/GM powder, Apply 1 application topically in [...] 0 min Stress: Stress Concern Present (01/22/2024) [place] [employer] - Occupational Stress Questionnaire Feeling of Stress : To some extent Social Connections: Moderately Isolated (01/22/2024) Social Connection and Isolation Panel [NHANES] Frequency of Communication with Friends and Family: Three times a week Frequency of Social Gatherings with Friends and Family: Twice a week Attends Am[employer] Services: 1 to 4 times per year Active Member of Clubs or Organizations: No Attends Club or Organization Meetings: Never Marital Status: Intimate Partner Violence: Unknown (04/12/2023) Received from [facility] Safety & Environment Fear of Current or [...] and negative PT pedal pulses NEURO: 5.07 [place] John Paul monofilament test positive to digits and forefoot bilaterally 125Hz tuning fork positive to 1st MPJ bilaterally ORTHO: Positive pain on palpation to toenails of the left 1,2,3,4,5 toes and right 1,2,3,4,5 toes ASSESSMENT 1. Type 2 diabetes mellitus without complication, 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 2. Pain due to onychomycosis [...] gear. Turner Wilkins DPM documented in this encounterHawthorn Children's Psychiatric [id number] History of Present illness Narrative* Amador Abdalla MD - 05/27/2024 12:15 PM EDTAssociated Problem(s): Type 2 diabetes mellitus with hyperglycemia, without long-term current use of insulin ([facility]) Medication adjusted in SNF and will check [...] hyperglycemia, without long-term current use of insulin ([facility]) Medication adjusted in SNF and will check A1C next visit. Benign essential hypertension ([facility]) BP elevated today but did not take medication and usually normal. Continue to monitor PRN. Type 2 diabetes mellitus with diabetic microalbuminuria ([facility]) Medicare annual wellness visit, subsequent - Primary Reviewed labs. Discussed proper diet and regular aerobic exercise. Need to increase walking and continue PT exercises. Smaller portions and limit total calories. Tetanus every 10 years. Advised not to smoke. Discussed daily Aspirin therapy. Other Visit Diagnoses Upper respiratory tract infection, unspecified type Relevant Medications fluticasone (Flonase) 50 MCG/ACT nasal spray documented in this encounterHawthorn Children's Psychiatric [id number] History of Present illness Narrative* Boby Earl, DO - 05/13/2024 11:59 PM EDT Patient Name: Rivka Turner Date of : 1945 Date of Service: 05/13/2024 Facility: [facility] Type of Visit: Skilled Visit Subjective Rivka Turner is a 78 y.o. female seen today at nursing home facility for therapy visit. Rivka is going [...] Exam Vitals reviewed. Exam conducted with a reading recovery teacher present (Chris Stauffer MS 3). Constitutional: General: [...] BY: Boby Earl DO documented in this encounterAdams County Hospital03-18-2025 History of Present illness Narrative* Boby Buenrostro Mady, DO - 05/06/2024 2:41 PM EDT Patient Name: Rivka Turner Date of : 1945 Date of Service: 05/06/2024 Facility: [facility] Type of Visit: Skilled Visit Subjective Rivka Turner is a 78 y.o. female seen today at nursing home facility for skilled visit. Rivka is participating [...] Plan 1. Chronic diastolic congestive heart failure ([facility]) 2. Other fracture of unspecified lumbar vertebra, subsequent encounter for fracture with routine healing 3. Essential hypertension 4. Type 2 diabetes mellitus with stage 3b chronic kidney disease, with long-term current use of insulin ([facility]) Medically stable. Continue current regimen. Continue oxygen for now. Maybe able to wean off. Might need a nocturnal pulse ox study to see if she needs nighttime oxygen. Continue therapy to reach maximum improvement. All medications reviewed and are medically necessary. ELECTRONICALLY SIGNED BY: Boby Earl DO documented in this encounterAdams County Hospital03-11-2025 History of Present illness Narrative* Boby Earl DO - 04/29/2024 11:59 PM EDT Patient Name: Rivka Turner Date of : 1945 Date of Service: 04/29/2024 Facility: [facility] Type of Visit: Skilled Visit Subjective Rivka Turner is a 78 y.o. female seen today at nursing home facility for skilled visit. Rivka complains of [...] Plan 1. Chronic diastolic congestive heart failure ([facility]) 2. Type 2 diabetes mellitus with stage 3b chronic kidney disease, with long-term current use of insulin ([facility]) 3. Other fracture of unspecified lumbar vertebra, subsequent encounter for fracture with routine healing 4. Generalized anxiety disorder Medically stable. Continue therapy to reach maximum improvement. Her oxygen saturations are ok when she has SOB. Monitor for now. Likely CHF but is also deconditioned. All medications reviewed and are medically necessary. ELECTRONICALLY SIGNED BY: Boby Earl DO documented in this encounterVermont State HospitalNomanini [id number] History of Present illness Narrative* Boby Earl DO - 04/25/2024 11:59 PM EST Patient Name: Rivka Turner Date of : 1945 Date of Service: 04/25/2024 Facility: [facility] Type of Visit: Admission H&P Subjective Rivka Turner is a 78 y.o. female seen today at nursing home facility for admission H&P. Rivka presents today for admission to [facility]. She was recently discharged from the [facility] for acute on chronic congestive heart failure. She was at a another alf previously and had to be sent out [...] Exam Vitals reviewed. Exam conducted with a reading recovery teacher present (Eitan Tom MS 3). Constitutional: General: [...] Acute combined systolic and diastolic heart failure ([facility]) 2. Other fracture of unspecified lumbar vertebra, subsequent encounter for fracture with routine healing 3. Urinary tract infection with hematuria, site unspecified 4. Pneumonia due to infectious organism, unspecified laterality, unspecified part of lung 5. Essential hypertension 6. Type 2 diabetes mellitus with stage 3b chronic kidney disease, with long-term current use of insulin ([facility]) 7. Iron deficiency anemia, unspecified iron deficiency anemia type 8. Personal history of transient ischemic attack (TIA), and cerebral infarction without residual deficits 9. Recurrent major depressive disorder, in remission ([facility]) 10. Generalized anxiety disorder 11. Weakness 12. Old myocardial infarction 13. History of falling Admit to [facility] for therapies. Continue antibiotic, hydrocodone-APAP and temazepam along with other medications Will hold off on alprazolam due to fall risk. Full code Fair to good rehab potential. ELECTRONICALLY SIGNED BY: Boby Earl DO documented in this encounterAdams County Hospital02-05-2025 Telephone encounter Note* Telephone Encounter - Amador Abdalla MD - 03/26/2024 3:01 PM EST [facility] [id number] Miscellaneous Notes* Telephone Encounter - Amador Abdalla MD - 03/26/2024 3:01 PM EST documented in this encounterNOSSM DePaul Health CenterTwtkvvcncs30-25-3438 History of Present illness Narrative* Amador Abdalla MD - 02/29/2024 2:13 PM ESTAssociated Problem(s): Type 2 diabetes mellitus with hyperglycemia, without long-term current use of insulin ([facility]) Not checking BS and due for A1C. BS elevated and not controlled. Script for CGM to pharmacy. Stick to ADA diet and limit carbs. * Amador Abdalla MD - 02/29/2024 2:13 PM ESTAssociated Problem(s): Stage 3b chronic kidney disease (CKD) ([facility]) Check labs * Amador Abdalla MD - [...] PM ESTAssociated Problem(s): Chronic diastolic heart failure ([facility]) Edema stable and continue medication. Elevate legs [...] 78 y.o. female who presents for Follow-up ([facility] er f/up 02/23/24) and Knee Pain. [...] Problem List Items Addressed This Visit Dyslipidemia ([facility]) Relevant Orders Lipid panel Chronic diastolic heart failure ([facility]) Edema stable and continue medication. Elevate legs PRN. Follow up with cardiology. Primary osteoarthritis of both knees Pain worse and check x-ray. Refer to ortho and use norco PRN. Relevant Orders XR knee 1 or 2 views right XR knee 1 or 2 views left Ambulatory referral to Orthopaedic Surgery Stage 3b chronic kidney disease (CKD) ([facility]) Check labs Relevant Orders Basic metabolic panel Type 2 diabetes mellitus with hyperglycemia, without long-term current use of insulin ([facility]) Not checking BS and due for A1C. BS elevated and not controlled. Script for CGM to pharmacy. Stick to ADA diet and limit carbs. Relevant Medications Continuous Glucose Numerical Control Programmer (Dexcom G7 Numerical Control Programmer) device Continuous Glucose Sensor (Dexcom G7 Sensor) misc Other Relevant Orders Microalbumin / creatinine, urine ratio Hemoglobin A1c Benign essential hypertension ([facility]) BP elevated today but did not take [...] Pain improved and monitor. documented in this encounterHawthorn Children's Psychiatric [id number] History of Present illness Narrative* Turner Wilkins [...] Arachnoid cyst Bradycardia CAD (coronary artery disease) ([facility]) CAD in [place] artery ([facility]) Cerebrovascular disease Chronic constipation Chronic diastolic heart failure ([facility]) Chronic sinusitis, unspecified location CVA (cerebral vascular accident) ([facility]) Depression ([facility]) Diabetes ([facility]) Dyslipidemia ([facility]) Fibromyalgia SCOTTY (generalized anxiety disorder) ([facility]) GERD (gastroesophageal reflux disease) Hiatal hernia HTN (hypertension) ([facility]) Hyperkalemia Hyperlipidemia ([facility]) Insomnia, persistent Kidney disease MDD (major depressive disorder), recurrent episode, mild (HCC) ([facility]) Overflow incontinence Primary osteoarthritis of both knees Pulmonary hypertension ([facility]) Seasonal allergic rhinitis due to pollen Stage 3b chronic kidney disease (CKD) ([facility]) Type 2 diabetes mellitus with hyperglycemia, without long-term current use of insulin ([facility]) Vitamin D deficiency Medications: Current Outpatient Medications: [...] tablet before bedtime., Disp: , Rfl: HYDROcodone-acetaminophen ([place]) 5-325 MG tablet, Take 1 tablet by [...] minutes ifneeded., Disp: , Rfl: nystatin (Mycostatin) [id number] UNIT/GM powder, Apply 1 application topically in [...] 0 min Stress: Stress Concern Present (01/22/2024) [place] [employer]ational Health - Occupational Stress Questionnaire Feeling of Stress : To some extent Social Connections: Moderately Isolated (01/22/2024) Social Connection and Isolation Panel [NHANES] Frequency of Communication with Friends and Family: Three times a week Frequency of Social Gatherings with Friends and Family: Twice a week Attends [employer] Services: 1 to 4 times per year Active Member of Clubs or Organizations: No Attends Club or Organization Meetings: Never Marital Status: Intimate Partner Violence: Unknown (04/12/2023) [facility] from [facility] [place] Safety & Environment Fear [...] and negative PT pedal pulses NEURO: 5.07 [place] John Paul monofilament test positive to digits [...] gear. Turner Wilkins DPM documented in this encounterHawthorn Children's Psychiatric [id number] History of Present illness Narrative* Amador Abdalla MD - 11/12/2023 3:43 PM EDTAssociated Problem(s): CAD in [place] artery ([facility]) No symptoms and follow with cardiology. * Amador Abdalla MD - 11/12/2023 3:42 PM EDTAssociated Problem(s): Type 2 diabetes mellitus with hyperglycemia, without long-term current use of insulin ([facility]) Not checking BS and due for A1C. [...] and use norco PRN. Relevant Medications HYDROcodone-acetaminophen ([place]) 5-325 MG tablet Stage 3b chronic kidney [...] Diagnoses Skin candidiasis Relevant Medications nystatin (Mycostatin) [id number] UNIT/GM powder documented in this encounterHawthorn Children's Psychiatric [id number] Progress note Author Andrea Marinelli [facility] June 25, 2021 11:27amNote Date/TimeMay 2021 11:18[place] [address] Cardiology Progress Note Signed Patient: Rivka Turner MR#: [id number] : 1945 Acct:[id number] Age/Sex: 75 / F Adm Date: 2 Loc: Room: [address] [place] [address] Type : ADM IN Attending Dr: Rusty [...] previous stents approximately 7 years ago in [place] details of which are unknown She really routinely follows with cardiology and saw her director of solutions architecture 3 months ago with no symptoms Comorbidities are noted for diabetes, obesity, hyperlipidemia, chronic kidney disease and essentialhypertension Mrs. Turner is doing well today status post PCI to the RCA (MACHINERY ENGINEER) done per Dr. Bolivar yesterday. 2 drug-eluting [...] MPV Neut % (Auto) Lymph % (Auto) [place] % (Auto) Eos % (Auto) Baso % (Auto) Neut # (Auto) Lymph # (Auto) [place] # (Auto) Eos # (Auto) Baso # [...] % (Auto) 90.9 Lymph % (Auto) 4.3 [place] % (Auto) 4.5 Eos % (Auto) 0.0 Baso % (Auto) 0.3 Neut # (Auto) 9.6 H Lymph # (Auto) 0.4 L [place] # (Auto) 0.5 Eos # (Auto) 0.0 Baso # (Auto) 0.0 Nucleated RBC % (auto) 0.0 PT INR APTT POC Glucose 322 294 POC Glucose Comment Troponin I High Sens 06/25/21 06/25/21 06/25/21 05:24 05:24 07:51 Corrected WBC Uncorrected WBC Count RBC Hgb Hct MCV MCH MCHC RDW Plt Count MPV Neut % (Auto) Lymph % (Auto) [place] % (Auto) Eos % (Auto) Baso % (Auto) Neut # (Auto) Lymph # (Auto) [place] # (Auto) Eos # (Auto) Baso # [...] days. Patient may follow-up with her primary director of solutions architecture in [place] and should do so within 10 days [...] Code(s): I25.10 - Atherosclerotic heart disease of [place] coronary artery without angina pectoris Status: Acute Plan: Recommendations as above (4) Diabetes: Assessment/Problem Details: Primary driver's license reviewing officer of risk for ongoing progressive coronary heart disease. Code(s): E11.9 - Type 2 diabetes mellitus without complications Status: Acute Plan: Okay to resume oral metformin in 24 hours. Aggressive glycemic control and control of serum insulinlevels is recommended. (5) HTN (hypertension): Assessment/Problem Details: Also major driver's license reviewing officer for risk of progressive/recurrent coronary heart disease Code(s): I10 - Essential (primary) hypertension Status: Acute Plan: Low-sodium DASH?2 diet is recommended Maintain medical therapy as outlined above. Within the construct of phase 2 monitored cardiac rehabilitation, a minimum 10% total body weight loss is strongly recommended Plan Okay for discharge to home today. Patient may follow-up with her primary director of solutions architecture in [place] within 10 days. Again, as mentioned above, enrollment in phase2 monitored cardiac rehabilitation is strongly recommended Time spent with patient Time Spent With Patient (min): 30 Documented By: Andrea Marinelli MD 06/25/21 1116 Signed By: <Electronically signed by Andrea Marinelli MD> 06/25/21 1127 [facility] Work Phone: 1(867) 996-887205-07-2022 History of Present illness Narrative* Andreas Freitas MD - 06/25/2021 10:50 AM EDT Images from the original note were not included. EMERGENCY TRIAGE, TREAT AND TRANSPORT (ET3) DOCUMENTATION OF TELEHEALTH VISIT Date / Time: 06/23/20211929 Name: Rivka Turner : 1945 SSN: (Not on file) EMS Agency: [facility] [x] Verbal consent obtained [...] by: Andreas Freitas MD documented in this [id number] Progress note Author Rusty Amor [facility] June 24, 2021 4:36pmNote Date/TimeMay 2021 3:50pm[place] [address] Hospitalist Progress Note Signed Patient: Rivka Turner MR#: [id number] : 1945 Acct:[id number] Age/Sex: 75 / F Adm Date: 2 Loc: Room: [address] [place] [address] Type : ADM IN Attending Dr: Rusty [...] care and confirmed it with the re sident/student/BIODIESEL OPERATIONS MANAGER. Patient was seen and examined at bedside [...] Mg-*D5w* IV 06/24/22 15:29 .Q24H [facility] Protocol 5 MCG/MIN Insulin Aspart 0 units 06/24/21 08:00 06/24/21 12:10 Insulin Aspart 300 Units/3 Ml Insuln.Pen SUBCUT 06/24/22 07:59 Not Given TID.WM.HS [facility] Protocol Insulin Detemir 10 units 06/24/21 22:00 Insulin Detemir 300 Units/3 Ml Insuln.Pen SUBCUT 06/24/22 21:59 QHS [facility] Lidocaine HCl 10 ml 06/24/21 [...] Capsule PO 06/24/22 21:59 HS [facility] Ticagrelor 90 mg 06/24/21 23:00 [...] CKD ?BUN 32 and creatinine 2.05 at [facility] yesterday Continue home medications. PT/OT Full code Rapid COVID-negative at [facility] Documented By: Nick Carr DO, RES 06/24/21 154 7 Signed By: <Electronically signed by DO JOSE DE JESUS Carr> 06/24/21 1633 <Electronically signed by Rusty Amor MD> 06/24/21 1636 [facility] Work Phone: 1(364) 324-239805-06-2022 Consult note Author Gen Bolivar [facility] June 24, 2021 2:02pmNote Date/TimeMay 2021 12:55[place] [address] Cardiology Consult Note Signed Patient: Rivka Turner MR#: [id number] : 1945 Acct:[id number] Age/Sex: 75 / F Adm Date: 2 Loc: Room: [address] [place] [address] Type : ADM IN Attending Dr: Rusty Amor MD Copies to: MD Amador Winston MD W Scott Sheldon, DO~ Cardiology HPI History of Present Illness Consult Date: 06/24/21 Reason for Consult: Non-ST elevation VT HPI: Ms. Turner is a 75 year [...] previous stents approximately 7 years ago in [place] details of which are unknown She really routinely follows with cardiology and saw her director of solutions architecture 3 months ago with no symptoms Comorbidities [...] x10E3/uL Lymph # (Auto) 1.8 (1.00-4.8) x10E3/uL Shelby # (Auto) 0.6 (0.0-0.8) x10E3/uL Eos # [...] Code(s): I25.10 - Atherosclerotic heart disease of [place] coronary artery without angina pectoris (4) Diabetes: Code(s): E11.9 - Type 2 diabetes mellitus without complications (5) HTN (hypertension): Code(s): I10 - Essential (primary) hypertension Documented By: Gen Bolivar DO 06/24/21 1248 Signed By: <Electronically signed by Gen Bolivar DO> 06/24/21 1408 [facility] Work Phone: 1(505) 648-334405-06-2022 [facility] History and physical note Author Xander Nam [facility] June 24, 2021 6:14amNote Date/TimeMay 2021 5:14[place] [address] Hospitalist H&P Signed Patient: Rivka Turner MR#: [id number] : 1945 Acct:[id number] Age/Sex: 75 / F Adm Date: 2 Loc: Room: [address] [place] [address] Type : ADM IN Attending Dr: Xander [...] type II, fibromyalgia, CKD who [facility] yesterdaywith intermittent chest pain that started in the afternoon while she was watching TV with associated shortness of breath. She described this pain as pressure that involved her left chest as well as left breast and axilla. She presented to the [facility] emergency department and blood pressure was 160/71 [...] 12 units/kg/h. She was transferred to [facility] for cardiac care for NSTEMI. The patient denied fever/chills, N/V, constipation/diarrhea. She does have history of chronic headaches however notes worsening of headache since yesterday. She does take Lasix as well with as needed for pedal edema. On evaluation at [facility], patient continues to endorse resting chest pain however diminished since initial presentation at [facility]. Per RN she was saturating 94% on [...] yesterday afternoon. ?Chest x-ray unremarkable ?EKG at [facility] normal sinus rhythm with no acute ischemia ?At [facility] troponin 162.6 with repeat 658.9. Repeat at [facility] ordered. ?Patient received bolus porcine heparin at 60 units/kg at [facility] with maintenance at 12 units/kg/h. Maintenance will be continued here. ?Coreg initiated at 12.5 mg twice daily. We will hold amlodipine pending cardiology recommendation. ?Continue losartan. ? Hold amlodipine and lasix pending cardiology consult. ?Cardiology consult ?Morphine for severe pain. Target pulse ox greater than 90%. Nitro for worsening chest pain. Received 324 mg aspirin at [facility]. 2. Coronary artery disease ?Status post 2 stents 5 and 7 years ago respectively per patient ?Continue atorvastatin 40 mg and 81 mg aspirin 3. Diabetes ?Hold home metformin and glipizide ?Initiate basal detemir 10 units with sliding scale coverage 4. CKD ?BUN 32 and creatinine 2.05 at [facility] yesterday Continue home medications. PT/OT Full code Rapid COVID-negative at [facility] Attending Provider Attestation Attending Physician Attestation: I personally saw this patient on the day of the encounter, reviewed the history,performed the cruz elements of the exam, formulated the plan of care and confirmed the resident's/production intern/medical student's dictation/written note. Documented By: Marlon Leon DO, RES 06/24/21 050 4 Signed By: <Electronically signed by DO JOSE DE JESUS Leon> 06/24/21 0537 <Electronically signed by Xander Ortiz MD> 06/24/21 0614 [facility] Work Phone: Discharge summary Author Rusty Amor [facility] June 25, 2021 1:30pmNote Date/TimeMay 2021 1:30pm[place] [address] Discharge Summary Signed Patient: Rivka Turner MR#: [id number] : 1945 Acct:[id number] Age/Sex: 75 / F Adm Date: 2 Loc: Room: [address] [place] [address]: Rusty Amor MD Copies to: [...] She presented to the emergency department of [facility] on June 24, complaining of chest discomfort. Her troponins were abnormal. She was transferred to our hospital witha diagnosis of non-STEMI. She was taken to the [facility] on June 25, where she underwent coronary [...] W Domingo Bolivar DO s CL PCI MACHINERY ENGINEER 1st Vessel RCA BAMBI - W Domingo [...] Neut % (Auto) 90.9, Lymph % (Auto)4.3, Shelby % (Auto) 4.5, Eos % (Auto) 0.0, Baso % (Auto) 0.3, Neut # (Auto) 9.6 H, Lymph # (Auto) 0.4 L, Shelby # (Auto)0.5, Eos # (Auto) 0.0, Baso [...] doctor or pharmacist, without first calling the director of solutions architecture who implanted the stent. If you require [...] weight lifting, stair steppers, etc. until the director of solutions architecture approves these activities. Check with the director of solutions architecture on your first follow-up visit. CALL YOUR PHYSICIAN at [phone]: -If bleeding should occur from the catheter insertion site- apply pressure to the site then immediately call us. -Report any fever, redness, drainage, increased swelling, or firmness at the catheter insertion site. Some bruising or slight swelling may be present at thetime of discharge. -Should arm or leg become cold, numb, white, or blue, contact the director of solutions architecture immediately. -IF you should experience episodes of [...] is recommended. Please call Central Scheduling at [phone] to schedule your appointment.] The attending director of solutions architecture or [facility] nurse clinician should provide you with specific instructions regarding activity, diet, medications, and further follow up for you. Follow the medication instructions provided on your discharge. If the dosages and instructions on this sheet differ from the dosage and instructions on the bottle, follow the instructions on the bottle. [facility] is not responsible for incorrect prescription information [...] Location: Determined by Patient Ordered By: Rusty Amro Follow Up: Amador Abdalla MD [Primary Care Provider] - (Office is currently closed. Call office on Sunday to schedule follow-up with your Primary Care Provider in 3-5 days. ) Obed Lucio MD [Referring] - (Call office on Sunday to schedule follow- up with your Receiving Specialist. ) Documented By: Rusty Amor MD 06/25/21 1326 Signed By: <Electronically signed by Rusty Amor MD> 06/25/21 1330 [facility] Work Phone: Evaluation note* Diagnosis Chest pain, unspecified type- Primary PND (paroxysmal nocturnal dyspnea) Other dyspnea and respiratory abnormality [facility] Diagnosis Onset Date Resolution Status CAD (coronary artery disease) acuteChronic kidney diseaseacuteDepressionacuteDiabetesacuteFibromyalgiaacute GERD (gastroesophageal reflux disease)acuteHTN (hypertension)acuteNSTEMI (non-ST elevated myocardial infarction)acute [facility] Work Phone: Evaluation note* Diagnosis Type 2 diabetes mellitus with hyperglycemia, without long-term current use of insulin ([facility])- Primary Benign essential hypertension ([facility]/HCC) Essential hypertension, benign Primary osteoarthritis of both knees Fibromyalgia Unspecified myalgia and myositis Major depressive disorder, recurrent episode, mild (HCC) ([facility]) Major depressive disorder, recurrent episode, mild Generalized anxiety disorder ([facility]/HCC) Generalized anxiety disorder Chronic diastolic heart failure ([facility]) Chronic diastolic heart failure Gastroesophageal reflux disease without esophagitis Esophageal reflux Encounter for long-term (current) use of medications Encounter for long-term (current) use of other medications Dyslipidemia ([facility]) Other and unspecified hyperlipidemia Vitamin D deficiency Type 2 diabetes mellitus with hyperglycemia, without long-term current use of insulin ([facility])- Primary Benign essential hypertension ([facility]/HCC) Essential hypertension, benign Chronic diastolic heart failure ([facility]/HCC) Chronic diastolic heart failure Major depressive disorder, recurrent episode, mild (HCC) ([facility]) Major depressive disorder, recurrent episode, mild Generalized anxiety disorder ([facility]) Generalized anxiety disorder Fibromyalgia Unspecified myalgia and myositis Gastroesophageal reflux disease without esophagitis Esophageal reflux Primary insomnia Persistent disorder of initiating or maintaining sleep Primary osteoarthritis of both knees Stage 3b chronic kidney disease (CKD) ([facility]) Dyslipidemia ([facility]) Other and unspecified hyperlipidemia Encounter for long-term (current) use of medications Encounter for long-term (current) use of other medications Obesity (BMI 30-39.9) Acute UTI Urinary tract infection, site not specified Skin candidiasis Candidiasis of skin and nails CAD in [place] artery ([facility]) Type 2 diabetes mellitus with diabetic chronic kidney disease ([facility]) Primary insomnia Persistent disorder of initiating or maintaining sleep documented in [facility] encounter [facility]* Diagnosis Type 2 diabetes mellitus with hyperglycemia, without long-term current use of insulin ([facility])- Primary Benign essential hypertension ([facility]/HCC) Essential hypertension, benign Primary osteoarthritis of both knees Fibromyalgia Unspecified myalgia and myositis Major depressive disorder, recurrent episode, mild (HCC) ([facility]) Major depressive disorder, recurrent episode, mild Generalized anxiety disorder ([facility]) Generalized anxiety disorder Chronic diastolic heart failure ([facility]) Chronic diastolic heart failure Gastroesophageal reflux disease without esophagitis Esophageal reflux Encounter for long-term (current) use of medications Encounter for long-term (current) use of other medications Dyslipidemia ([facility]) Other and unspecified hyperlipidemia Vitamin D deficiency Type 2 diabetes mellitus with hyperglycemia, without long-term current use of insulin ([facility])- Primary Benign essential hypertension ([facility]) Essential hypertension, benign Chronic diastolic heart failure ([facility]) Chronic diastolic heart failure Major depressive disorder, recurrent episode, mild (HCC) [place] Major depressive disorder, recurrent episode, mild Generalized anxiety disorder ([facility]) Generalized anxiety disorder Fibromyalgia Unspecified myalgia and myositis Gastroesophageal reflux disease without esophagitis Esophageal reflux Primary insomnia Persistent disorder of initiating or maintaining sleep Primary osteoarthritis of both knees Stage 3b chronic kidney disease (CKD) ([facility]) Dyslipidemia ([facility]) Other and unspecified hyperlipidemia Encounter for long-term (current) use of medications Encounter for long-term (current) use of other medications Obesity (BMI 30-39.9) Acute UTI Urinary tract infection, site not specified Skin candidiasis Candidiasis of skin and nails CAD in [place] artery ([facility]) Type 2 diabetes mellitus with diabetic chronic kidney disease [place] Primary osteoarthritis of both knees documented in this encounter [facility]* Diagnosis Type 2 diabetes mellitus with hyperglycemia, without long-term current use of insulin [place] Primary Benign essential hypertension ([facility]) Essential hypertension, benign Chronic diastolic heart failure ([facility]) Chronic diastolic heart failure Major depressive disorder, recurrent episode, mild (HCC) ([facility]) Major depressive disorder, recurrent episode, mild Generalized anxiety disorder ([facility]) Generalized anxiety disorder Fibromyalgia Unspecified myalgia and myositis Gastroesophageal reflux disease without esophagitis Esophageal reflux Primary insomnia Persistent disorder of initiating or maintaining sleep Primary osteoarthritis of both knees Stage 3b chronic kidney disease (CKD) ([facility]) Dyslipidemia ([facility]) Other and unspecified hyperlipidemia Encounter for long-term (current) use of medications Encounter for long-term (current) use of other medications Obesity (BMI 30-39.9) Acute UTI Urinary tract infection, site not specified Skin candidiasis Candidiasis of skin and nails CAD in [place] artery ([facility]) Type 2 diabetes mellitus with diabetic chronic kidney disease ([facility]) documented in this encounter [facility]* Diagnosis Type 2 diabetes mellitus with hyperglycemia, without long-term current use of insulin ([facility])- Primary Benign essential hypertension ([facility]) Essential hypertension, benign Primary osteoarthritis of both knees Fibromyalgia Unspecified myalgia and myositis Major depressive disorder, recurrent episode, mild (HCC) ([facility]) Major depressive disorder, recurrent episode, mild Generalized anxiety disorder ([facility]) Generalized anxiety disorder Chronic diastolic heart failure ([facility]) Chronic diastolic heart failure Gastroesophageal reflux disease without esophagitis Esophageal reflux Encounter for long-term (current) use of medications Encounter for long-term (current) use of other medications Dyslipidemia ([facility]) Other and unspecified hyperlipidemia Vitamin D deficiency Type 2 diabetes mellitus with hyperglycemia, without long-term current use of insulin [place] Primary Benign essential hypertension ([facility]) Essential hypertension, benign Chronic diastolic heart failure ([facility]) Chronic diastolic heart failure Major depressive disorder, recurrent episode, mild (HCC) ([facility]) Major depressive disorder, recurrent episode, mild Generalized anxiety disorder ([facility]) Generalized anxiety disorder Fibromyalgia Unspecified myalgia and myositis Gastroesophageal reflux disease without esophagitis Esophageal reflux Primary insomnia Persistent disorder of initiating or maintaining sleep Primary osteoarthritis of both knees Stage 3b chronic kidney disease (CKD) ([facility]) Dyslipidemia ([facility]) Other and unspecified hyperlipidemia Encounter for long-term (current) use of medications Encounter for long-term (current) use of other medications Obesity (BMI 30-39.9) Acute UTI Urinary tract infection, site not specified Skin candidiasis Candidiasis of skin and nails CAD in [place] artery ([facility]) Type 2 diabetes mellitus with diabetic chronic kidney disease ([facility]) Type 2 diabetes mellitus without complication, 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 [place] Primary Pain due to onychomycosis of toenails of both feet Venous insufficiency Unspecified venous (peripheral) insufficiency documented in this encounter [facility]* Diagnosis Type 2 diabetes mellitus with hyperglycemia, without long-term current use of insulin ([facility])- Primary Benign essential hypertension ([facility]) Essential hypertension, benign Primary osteoarthritis of both knees Fibromyalgia Unspecified myalgia and myositis Major depressive disorder, recurrent episode, mild (HCC) ([facility]) Major depressive disorder, recurrent episode, mild Generalized anxiety disorder ([facility]) Generalized anxiety disorder Chronic diastolic heart failure ([facility]) Chronic diastolic heart failure Gastroesophageal reflux disease without esophagitis Esophageal reflux Encounter for long-term (current) use of medications Encounter for long-term (current) use of other medications Dyslipidemia ([facility]) Other and unspecified hyperlipidemia Vitamin D deficiency Type 2 diabetes mellitus with hyperglycemia, without long-term current use of insulin ([facility])- Primary Benign essential hypertension ([facility]) Essential hypertension, benign Chronic diastolic heart failure ([facility]) Chronic diastolic heart failure Major depressive disorder, recurrent episode, mild (HCC) ([facility]) Major depressive disorder, recurrent episode, mild Generalized anxiety disorder ([facility]) Generalized anxiety disorder Fibromyalgia Unspecified myalgia and myositis Gastroesophageal reflux disease without esophagitis Esophageal reflux Primary insomnia Persistent disorder of initiating or maintaining sleep Primary osteoarthritis of both knees Stage 3b chronic kidney disease (CKD) ([facility]) Dyslipidemia ([facility]) Other and unspecified hyperlipidemia Encounter for long-term (current) use of medications Encounter for long-term (current) use of other medications Obesity (BMI 30-39.9) Acute UTI Urinary tract infection, site not specified Skin candidiasis Candidiasis of skin and nails CAD in [place] artery ([facility]) Type 2 diabetes mellitus with diabetic chronic kidney disease ([facility]) Primary osteoarthritis of both knees documented in this encounter [facility]* Diagnosis Type 2 diabetes mellitus with hyperglycemia, without long-term current use of insulin ([facility])- Primary Benign essential hypertension ([facility]) Essential hypertension, benign Primary osteoarthritis of both knees Fibromyalgia Unspecified myalgia and myositis Major depressive disorder, recurrent episode, mild (HCC) ([facility]) Major depressive disorder, recurrent episode, mild Generalized anxiety disorder ([facility]) Generalized anxiety disorder Chronic diastolic heart failure ([facility]) Chronic diastolic heart failure Gastroesophageal reflux disease without esophagitis Esophageal reflux Encounter for long-term (current) use of medications Encounter for long-term (current) use of other medications Dyslipidemia ([facility]) Other and unspecified hyperlipidemia Vitamin D deficiency Type 2 diabetes mellitus with hyperglycemia, without long-term current use of insulin ([facility])- Primary Benign essential hypertension ([facility]/HCC) Essential hypertension, benign Chronic diastolic heart failure ([facility]) Chronic diastolic heart failure Major depressive disorder, recurrent episode, mild (HCC) ([facility]) Major depressive disorder, recurrent episode, mild Generalized anxiety disorder ([facility]) Generalized anxiety disorder Fibromyalgia Unspecified myalgia and myositis Gastroesophageal reflux disease without esophagitis Esophageal reflux Primary insomnia Persistent disorder of initiating or maintaining sleep Primary osteoarthritis of both knees Stage 3b chronic kidney disease (CKD) ([facility]) Dyslipidemia ([facility]) Other and unspecified hyperlipidemia Encounter for long-term (current) use of medications Encounter for long-term (current) use of other medications Obesity (BMI 30-39.9) Acute UTI Urinary tract infection, site not specified Skin candidiasis Candidiasis of skin and nails CAD in [place] artery ([facility]) Type 2 diabetes mellitus with diabetic chronic kidney disease ([facility]) Left elbow pain- Primary Pain in joint, upper arm Type 2 diabetes mellitus with hyperglycemia, without long-term current use of insulin ([facility]) Benign essential hypertension ([facility]) Essential hypertension, benign Chronic diastolic heart failure ([facility]) Chronic diastolic heart failure Encounter for long-term (current) use of medications Encounter for long-term (current) use of other medications Primary osteoarthritis of both knees Stage 3b chronic kidney disease (CKD) ([facility]) Dyslipidemia ([facility]) Other and unspecified hyperlipidemia Class 1 obesity due to excess calories with serious comorbidity and body mass index (BMI) of 33.0 to 33.9 in adult Type 2 diabetes mellitus with diabetic chronic kidney disease ([facility]) documented in this encounter [facility]* Diagnosis Type 2 diabetes mellitus with hyperglycemia, without long-term current use of insulin ([facility])- Primary Benign essential hypertension ([facility]) Essential hypertension, benign Primary osteoarthritis of both knees Fibromyalgia Unspecified myalgia and myositis Major depressive disorder, recurrent episode, mild (HCC) ([facility]) Major depressive disorder, recurrent episode, mild Generalized anxiety disorder ([facility]) Generalized anxiety disorder Chronic diastolic heart failure ([facility]) Chronic diastolic heart failure Gastroesophageal reflux disease without esophagitis Esophageal reflux Encounter for long-term (current) use of medications Encounter for long-term (current) use of other medications Dyslipidemia ([facility]) Other and unspecified hyperlipidemia Vitamin D deficiency Type 2 diabetes mellitus with hyperglycemia, without long-term current use of insulin ([facility])- Primary Benign essential hypertension ([facility]) Essential hypertension, benign Chronic diastolic heart failure ([facility]) Chronic diastolic heart failure Major depressive disorder, recurrent episode, mild (HCC) ([facility]) Major depressive disorder, recurrent episode, mild Generalized anxiety disorder ([facility]) Generalized anxiety disorder Fibromyalgia Unspecified myalgia and myositis Gastroesophageal reflux disease without esophagitis Esophageal reflux Primary insomnia Persistent disorder of initiating or maintaining sleep Primary osteoarthritis of both knees Stage 3b chronic kidney disease (CKD) ([facility]) Dyslipidemia ([facility]) Other and unspecified hyperlipidemia Encounter for long-term (current) use of medications Encounter for long-term (current) use of other medications Obesity (BMI 30-39.9) Acute UTI Urinary tract infection, site not specified Skin candidiasis Candidiasis of skin and nails CAD in [place] ([facility]) Type 2 diabetes mellitus with diabetic chronic kidney disease ([facility]) Left elbow pain- Primary Pain in joint, upper arm Type 2 diabetes mellitus with hyperglycemia, without long-term current use of insulin ([facility]) Benign essential hypertension ([facility]) Essential hypertension, benign Chronic diastolic heart failure ([facility]) Chronic diastolic heart failure Encounter for long-term (current) use of medications Encounter for long-term (current) use of other medications Primary osteoarthritis of both knees Stage 3b chronic kidney disease (CKD) ([facility]) Dyslipidemia ([facility]) Other and unspecified hyperlipidemia Class 1 obesity due to excess calories with serious comorbidity and body mass index (BMI) of 33.0 to 33.9 in adult Type 2 diabetes mellitus with diabetic chronic kidney disease ([facility]) Primary insomnia Persistent disorder of initiating or maintaining sleep documented in this encounter [facility]* Diagnosis Chronic diastolic congestive heart failure ([facility])- Primary Other fracture of unspecified lumbar vertebra, subsequent encounter for fracture with routine healing Essential hypertension Unspecified essential hypertension Type 2 diabetes mellitus with stage 3b chronic kidney disease, with long-term current use of insulin ([facility]) [facility] Diagnosis Chronic diastolic congestive heart failure ([facility])- Primary Type 2 diabetes mellitus with stage 3b chronic kidney disease, with long-term current use of insulin ([facility]) Other fracture of unspecified lumbar vertebra, subsequent encounter for fracture with routine healing Generalized anxiety disorder [facility] Diagnosis Acute combined systolic and diastolic heart failure ([facility])- Primary Acute combined systolic and diastolic heart failure Other fracture of unspecified lumbar vertebra, subsequent encounter for fracture with routine healing Urinary tract infection with hematuria, site unspecified Pneumonia due to infectious organism, unspecified laterality, unspecified part of lung Essential hypertension Unspecified essential hypertension Type 2 diabetes mellitus with stage 3b chronic kidney disease, with long-term current use of insulin ([facility]) Iron deficiency anemia, unspecified iron deficiency anemia type Personal history of transient ischemic attack (TIA), and cerebral infarction without residual deficits Recurrent major depressive disorder, in remission Generalized anxiety disorder Weakness Other malaise and fatigue Old myocardial infarction History of falling [facility] Diagnosis Chronic diastolic congestive heart failure ([facility])- Primary Essential hypertension Unspecified essential hypertension Other fracture of unspecified lumbar vertebra, subsequent encounter for fracture with routine healing Generalized anxiety disorder [facility] Diagnosis Type 2 diabetes mellitus with hyperglycemia, without long-term current use of insulin ([facility])- Primary Benign essential hypertension ([facility]) Essential hypertension, benign Primary osteoarthritis of both knees Fibromyalgia Unspecified myalgia and myositis Major depressive disorder, recurrent episode, mild (HCC) ([facility]) Major depressive disorder, recurrent episode, mild Generalized anxiety disorder ([facility]) Generalized anxiety disorder Chronic diastolic heart failure ([facility]) Chronic diastolic heart failure Gastroesophageal reflux disease without esophagitis Esophageal reflux Encounter for long-term (current) use of medications Encounter for long-term (current) use of other medications Dyslipidemia ([facility]) Other and unspecified hyperlipidemia Vitamin D deficiency Type 2 diabetes mellitus with hyperglycemia, without long-term current use of insulin ([facility])- Primary Benign essential hypertension ([facility]) Essential hypertension, benign Chronic diastolic heart failure ([facility]) Chronic diastolic heart failure Major depressive disorder, recurrent episode, mild (HCC) ([facility]) Major depressive disorder, recurrent episode, mild Generalized anxiety disorder ([facility]) Generalized anxiety disorder Fibromyalgia Unspecified myalgia and myositis Gastroesophageal reflux disease without esophagitis Esophageal reflux Primary insomnia Persistent disorder of initiating or maintaining sleep Primary osteoarthritis of both knees Stage 3b chronic kidney disease (CKD) ([facility]) Dyslipidemia ([facility]) Other and unspecified hyperlipidemia Encounter for long-term (current) use of medications Encounter for long-term (current) use of other medications Obesity (BMI 30-39.9) Acute UTI Urinary tract infection, site not specified Skin candidiasis Candidiasis of skin and nails CAD in [place] ([facility]) Type 2 diabetes mellitus with diabetic chronic kidney disease ([facility]) Left elbow pain- Primary Pain in joint, upper arm Type 2 diabetes mellitus with hyperglycemia, without long-term current use of insulin ([facility]) Benign essential hypertension ([facility]) Essential hypertension, benign Chronic diastolic heart failure ([facility]) Chronic diastolic heart failure Encounter for long-term (current) use of medications Encounter for long-term (current) use of other medications Primary osteoarthritis of both knees Stage 3b chronic kidney disease (CKD) ([facility]) Dyslipidemia ([facility]) Other and unspecified hyperlipidemia Class 1 obesity due to excess calories with serious comorbidity and body mass index (BMI) of 33.0 to 33.9 in adult Type 2 diabetes mellitus with diabetic chronic kidney disease ([facility]) Medicare annual wellness visit, subsequent- Primary Upper respiratory tract infection, unspecified type Benign essential hypertension ([facility]) Essential hypertension, benign Type 2 diabetes mellitus with hyperglycemia, without long-term current use of insulin ([facility]) documented in this encounter [facility]* Diagnosis Type 2 diabetes mellitus with hyperglycemia, without long-term current use of insulin ([facility])- Primary Benign essential hypertension ([facility]) Essential hypertension, benign Primary osteoarthritis of both knees Fibromyalgia Unspecified myalgia and myositis Major depressive disorder, recurrent episode, mild (HCC) ([facility]) Major depressive disorder, recurrent episode, mild Generalized anxiety disorder ([facility]) Generalized anxiety disorder Chronic diastolic heart failure ([facility]) Chronic diastolic heart failure Gastroesophageal reflux disease without esophagitis Esophageal reflux Encounter for long-term (current) use of medications Encounter for long-term (current) use of other medications Dyslipidemia ([facility]) Other and unspecified hyperlipidemia Vitamin D deficiency Type 2 diabetes mellitus with hyperglycemia, without long-term current use of insulin ([facility])- Primary Benign essential hypertension ([facility]) Essential hypertension, benign Chronic diastolic heart failure ([facility]) Chronic diastolic heart failure Major depressive disorder, recurrent episode, mild (HCC) ([facility]) Major depressive disorder, recurrent episode, mild Generalized anxiety disorder ([facility]) Generalized anxiety disorder Fibromyalgia Unspecified myalgia and myositis Gastroesophageal reflux disease without esophagitis Esophageal reflux Primary insomnia Persistent disorder of initiating or maintaining sleep Primary osteoarthritis of both knees Stage 3b chronic kidney disease (CKD) ([facility]) Dyslipidemia ([facility]) Other and unspecified hyperlipidemia Encounter for long-term (current) use of medications Encounter for long-term (current) use of other medications Obesity (BMI 30-39.9) Acute UTI Urinary tract infection, site not specified Skin candidiasis Candidiasis of skin and nails CAD in [place] ([facility]) Type 2 diabetes mellitus with diabetic chronic kidney disease ([facility]) Left elbow pain- Primary Pain in joint, upper arm Type 2 diabetes mellitus with hyperglycemia, without long-term current use of insulin ([facility]) Benign essential hypertension ([facility]) Essential hypertension, benign Chronic diastolic heart failure ([facility]) Chronic diastolic heart failure Encounter for long-term (current) use of medications Encounter for long-term (current) use of other medications Primary osteoarthritis of both knees Stage 3b chronic kidney disease (CKD) ([facility]) Dyslipidemia ([facility]) Other and unspecified hyperlipidemia Class 1 obesity due to excess calories with serious comorbidity and body mass index (BMI) of 33.0 to 33.9 in adult Type 2 diabetes mellitus with diabetic chronic kidney disease ([facility]) Medicare annual wellness visit, subsequent- Primary Upper respiratory tract infection, unspecified type Benign essential hypertension ([facility]) Essential hypertension, benign Type 2 diabetes mellitus with hyperglycemia, without long-term current use of insulin ([facility]) Type 2 diabetes mellitus with hyperglycemia, without long-term current use of insulin ([facility])- Primary documented in this encounter [facility]* Diagnosis Type 2 diabetes mellitus with hyperglycemia, without long-term current use of insulin ([facility])- Primary Benign essential hypertension ([facility]) Essential hypertension, benign Primary osteoarthritis of both knees Fibromyalgia Unspecified myalgia and myositis Major depressive disorder, recurrent episode, mild (HCC) ([facility]) Major depressive disorder, recurrent episode, mild Generalized anxiety disorder ([facility]) Generalized anxiety disorder Chronic diastolic heart failure ([facility]) Chronic diastolic heart failure Gastroesophageal reflux disease without esophagitis Esophageal reflux Encounter for long-term (current) use of medications Encounter for long-term (current) use of other medications Dyslipidemia ([facility]) Other and unspecified hyperlipidemia Vitamin D deficiency Type 2 diabetes mellitus with hyperglycemia, without long-term current use of insulin ([facility])- Primary Benign essential hypertension ([facility]) Essential hypertension, benign Chronic diastolic heart failure ([facility]) Chronic diastolic heart failure Major depressive disorder, recurrent episode, mild (HCC) ([facility]) Major depressive disorder, recurrent episode, mild Generalized anxiety disorder ([facility]) Generalized anxiety disorder Fibromyalgia Unspecified myalgia and myositis Gastroesophageal reflux disease without esophagitis Esophageal reflux Primary insomnia Persistent disorder of initiating or maintaining sleep Primary osteoarthritis of both knees Stage 3b chronic kidney disease (CKD) ([facility]) Dyslipidemia ([facility]) Other and unspecified hyperlipidemia Encounter for long-term (current) use of medications Encounter for long-term (current) use of other medications Obesity (BMI 30-39.9) Acute UTI Urinary tract infection, site not specified Skin candidiasis Candidiasis of skin and nails CAD in [place] ([facility]) Type 2 diabetes mellitus with diabetic chronic kidney disease ([facility]) Left elbow pain- Primary Pain in joint, upper arm Type 2 diabetes mellitus with hyperglycemia, without long-term current use of insulin ([facility]) Benign essential hypertension ([facility]) Essential hypertension, benign Chronic diastolic heart failure ([facility]) Chronic diastolic heart failure Encounter for long-term (current) use of medications Encounter for long-term (current) use of other medications Primary osteoarthritis of both knees Stage 3b chronic kidney disease (CKD) ([facility]) Dyslipidemia ([facility]) Other and unspecified hyperlipidemia Class 1 obesity due to excess calories with serious comorbidity and body mass index (BMI) of 33.0 to 33.9 in adult Type 2 diabetes mellitus with diabetic chronic kidney disease ([facility]) Medicare annual wellness visit, subsequent- Primary Upper respiratory tract infection, unspecified type Benign essential hypertension ([facility]) Essential hypertension, benign Type 2 diabetes mellitus with hyperglycemia, without long-term current use of insulin ([facility]) Type 2 diabetes mellitus with hyperglycemia, without long-term current use of insulin ([facility]) Chronic diastolic heart failure ([facility]) Chronic diastolic heart failure documented in this encounter [facility]* Diagnosis Type 2 diabetes mellitus with hyperglycemia, without long-term current use of insulin ([facility])- Primary Benign essential hypertension ([facility]) Essential hypertension, benign Primary osteoarthritis of both knees Fibromyalgia Unspecified myalgia and myositis Major depressive disorder, recurrent episode, mild (HCC) ([facility]) Major depressive disorder, recurrent episode, mild Generalized anxiety disorder ([facility]) Generalized anxiety disorder Chronic diastolic heart failure ([facility]) Chronic diastolic heart failure Gastroesophageal reflux disease without esophagitis Esophageal reflux Encounter for long-term (current) use of medications Encounter for long-term (current) use of other medications Dyslipidemia ([facility]) Other and unspecified hyperlipidemia Vitamin D deficiency Type 2 diabetes mellitus with hyperglycemia, without long-term current use of insulin [place] Primary Benign essential hypertension ([facility]) Essential hypertension, benign Chronic diastolic heart failure ([facility]) Chronic diastolic heart failure Major depressive disorder, recurrent episode, mild (HCC) [place] Major depressive disorder, recurrent episode, mild Generalized anxiety disorder ([facility]) Generalized anxiety disorder Fibromyalgia Unspecified myalgia and myositis Gastroesophageal reflux disease without esophagitis Esophageal reflux Primary insomnia Persistent disorder of initiating or maintaining sleep Primary osteoarthritis of both knees Stage 3b chronic kidney disease (CKD) ([facility]) Dyslipidemia ([facility]) Other and unspecified hyperlipidemia Encounter for long-term (current) use of medications Encounter for long-term (current) use of other medications Obesity (BMI 30-39.9) Acute UTI Urinary tract infection, site not specified Skin candidiasis Candidiasis of skin and nails CAD in [place] ([facility]) Type 2 diabetes mellitus with diabetic chronic kidney disease ([facility]) Left elbow pain- Primary Pain in joint, upper arm Type 2 diabetes mellitus with hyperglycemia, without long-term current use of insulin [place] Benign essential hypertension [place] Essential hypertension, benign Chronic diastolic heart failure ([facility]) Chronic diastolic heart failure Encounter for long-term (current) use of medications Encounter for long-term (current) use of other medications Primary osteoarthritis of both knees Stage 3b chronic kidney disease (CKD) ([facility]) Dyslipidemia ([facility]) Other and unspecified hyperlipidemia Class 1 obesity due to excess calories with serious comorbidity and body mass index (BMI) of 33.0 to 33.9 in adult Type 2 diabetes mellitus with diabetic chronic kidney disease ([facility]) Medicare annual wellness visit, subsequent- Primary Upper respiratory tract infection, unspecified type Benign essential hypertension [facility] [facility]) Essential hypertension, benign Type 2 diabetes mellitus with hyperglycemia, without long-term current use of insulin ([facility]) Primary osteoarthritis of both knees documented in this encounter [facility]* Diagnosis Type 2 diabetes mellitus with hyperglycemia, without long-term current use of insulin ([facility])- Primary Benign essential hypertension ([facility]) Essential hypertension, benign Primary osteoarthritis of both knees Fibromyalgia Unspecified myalgia and myositis Major depressive disorder, recurrent episode, mild (HCC) ([facility]) Major depressive disorder, recurrent episode, mild Generalized anxiety disorder ([facility]) Generalized anxiety disorder Chronic diastolic heart failure ([facility]) Chronic diastolic heart failure Gastroesophageal reflux disease without esophagitis Esophageal reflux Encounter for long-term (current) use of medications Encounter for long-term (current) use of other medications Dyslipidemia ([facility]) Other and unspecified hyperlipidemia Vitamin D deficiency Type 2 diabetes mellitus with hyperglycemia, without long-term current use of insulin ([facility])- Primary Benign essential hypertension ([facility]) Essential hypertension, benign Chronic diastolic heart failure ([facility]) Chronic diastolic heart failure Major depressive disorder, recurrent episode, mild (HCC) ([facility]) Major depressive disorder, recurrent episode, mild Generalized anxiety disorder ([facility]) Generalized anxiety disorder Fibromyalgia Unspecified myalgia and myositis Gastroesophageal reflux disease without esophagitis Esophageal reflux Primary insomnia Persistent disorder of initiating or maintaining sleep Primary osteoarthritis of both knees Stage 3b chronic kidney disease (CKD) ([facility]) Dyslipidemia ([facility]) Other and unspecified hyperlipidemia Encounter for long-term (current) use of medications Encounter for long-term (current) use of other medications Obesity (BMI 30-39.9) Acute UTI Urinary tract infection, site not specified Skin candidiasis Candidiasis of skin and nails CAD in [place] artery ([facility]) Type 2 diabetes mellitus with diabetic chronic kidney disease ([facility]) Left elbow pain- Primary Pain in joint, upper arm Type 2 diabetes mellitus with hyperglycemia, without long-term current use of insulin ([facility]) Benign essential hypertension ([facility]) Essential hypertension, benign Chronic diastolic heart failure ([facility]) Chronic diastolic heart failure Encounter for long-term (current) use of medications Encounter for long-term (current) use of other medications Primary osteoarthritis of both knees Stage 3b chronic kidney disease (CKD) ([facility]) Dyslipidemia ([facility]) Other and unspecified hyperlipidemia Class 1 obesity due to excess calories with serious comorbidity and body mass index (BMI) of 33.0 to 33.9 in adult Type 2 diabetes mellitus with diabetic chronic kidney disease ([facility]) Medicare annual wellness visit, subsequent- Primary Upper respiratory tract infection, unspecified type Benign essential hypertension ([facility]) Essential hypertension, benign Type 2 diabetes mellitus with hyperglycemia, without long-term current use of insulin ([facility]) Type 2 diabetes mellitus without complication, 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- Primary Pain due to onychomycosis of toenails of both feet Venous insufficiency Unspecified venous (peripheral) insufficiency documented in this encounter [facility] Healthcare[facility] note* Diagnosis Type 2 diabetes mellitus with hyperglycemia, without long-term current use of insulin ([facility])- Primary Benign essential hypertension Essential hypertension, benign [...] hyperglycemia, without long-term current use of insulin ([facility])- Primary Benign essential hypertension Essential hypertension, benign [...] knees Stage 3b chronic kidney disease (CKD) ([facility]) Dyslipidemia Other and unspecified hyperlipidemia Encounter for long-term (current) use of medications Encounter for long-term (current) use of other medications Obesity (BMI 30-39.9) Acute UTI Urinary tract infection, site not specified Skin candidiasis Candidiasis of skin and nails CAD in [place] 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 ([facility]) Left elbow pain- Primary Pain in joint, upper arm Type 2 diabetes mellitus with hyperglycemia, without long-term current use of insulin ([facility]) Benign essential hypertension Essential hypertension, benign Chronic diastolic heart failure (HCC) Chronic diastolic heart failure Encounter for long-term (current) use of medications Encounter for long-term (current) use of other medications Primary osteoarthritis of both knees Stage 3b chronic kidney disease (CKD) ([facility]) Dyslipidemia Other and unspecified hyperlipidemia Class 1 obesity due to excess calories with serious comorbidity and body mass index (BMI) of 33.0 to 33.9 in adult Type 2 diabetes mellitus with diabetic chronic kidney disease ([facility]) Medicare annual wellness visit, subsequent- Primary Upper [...] sleep Stage 3b chronic kidney disease (CKD) ([facility]) documented in this encounter [facility] note* Diagnosis Type 2 diabetes mellitus with hyperglycemia, without long-term current use of insulin ([facility])- Primary Benign essential hypertension Essential hypertension, benign [...] hyperglycemia, without long-term current use of insulin ([facility])- Primary Benign essential hypertension Essential hypertension, benign [...] knees Stage 3b chronic kidney disease (CKD) ([facility]) Dyslipidemia Other and unspecified hyperlipidemia Encounter for long-term (current) use of medications Encounter for long-term (current) use of other medications Obesity (BMI 30-39.9) Acute UTI Urinary tract infection, site not specified Skin candidiasis Candidiasis of skin and nails CAD in [place] 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 (HCC) Left elbow pain- Primary Pain in joint, upper arm Type 2 diabetes mellitus with hyperglycemia, without long-term current use of insulin ([facility]) Benign essential hypertension Essential hypertension, benign Chronic diastolic heart failure (HCC) Chronic diastolic heart failure Encounter for long-term (current) use of medications Encounter for long-term (current) use of other medications Primary osteoarthritis of both knees Stage 3b chronic kidney disease (CKD) ([facility]) Dyslipidemia Other and unspecified hyperlipidemia Class 1 obesity due to excess calories with serious comorbidity and body mass index (BMI) of 33.0 to 33.9 in adult Type 2 diabetes mellitus with diabetic chronic kidney disease ([facility]) Medicare annual wellness visit, subsequent- Primary Upper respiratory tract infection, unspecified type Benign essential hypertension Essential hypertension, benign Type 2 diabetes mellitus with hyperglycemia, without long-term current use of insulin ([facility]) Type 2 diabetes mellitus with hyperglycemia, without long-term current use of insulin ([facility])- Primary Benign essential hypertension Essential hypertension, benign Fibromyalgia Unspecified myalgia and myositis Major depressive disorder, recurrent episode, mild Major depressive disorder, recurrent episode, mild Generalized anxiety disorder Generalized anxiety disorder Chronic diastolic heart failure (HCC) Chronic diastolic heart failure Primary insomnia Persistent disorder of initiating or maintaining sleep Stage 3b chronic kidney disease (CKD) ([facility]) Primary insomnia Persistent disorder of initiating or maintaining sleep Type 2 diabetes mellitus without complication, unspecified whether prison insulin use ([facility])- Primary Pain due to onychomycosis of toenails of both feet Venous insufficiency Unspecified venous (peripheral) insufficiency documented in this encounter [facility]* Diagnosis Type 2 diabetes mellitus with hyperglycemia, without long-term current use of insulin ([facility])- Primary Benign essential hypertension Essential hypertension, benign [...] hyperglycemia, without long-term current use of insulin ([facility])- Primary Benign essential hypertension Essential hypertension, benign [...] knees Stage 3b chronic kidney disease (CKD) ([facility]) Dyslipidemia Other and unspecified hyperlipidemia Encounter for long-term (current) use of medications Encounter for long-term (current) use of other medications Obesity (BMI 30-39.9) Acute UTI Urinary tract infection, site not specified Skin candidiasis Candidiasis of skin and nails CAD in [place] 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 ([facility]) Left elbow pain- Primary Pain in joint, upper arm Type 2 diabetes mellitus with hyperglycemia, without long-term current use of insulin ([facility]) Benign essential hypertension Essential hypertension, benign Chronic diastolic heart failure ([facility]) Chronic diastolic heart failure Encounter for long-term (current) use of medications Encounter for long-term (current) use of other medications Primary osteoarthritis of both knees Stage 3b chronic kidney disease (CKD) ([facility]) Dyslipidemia Other and unspecified hyperlipidemia Class 1 obesity due to excess calories with serious comorbidity and body mass index (BMI) of 33.0 to 33.9 in adult Type 2 diabetes mellitus with diabetic chronic kidney disease ([facility]) Medicare annual wellness visit, subsequent- Primary Upper respiratory tract infection, unspecified type Benign essential hypertension Essential hypertension, benign Type 2 diabetes mellitus with hyperglycemia, without long-term current use of insulin ([facility]) Type 2 diabetes mellitus with hyperglycemia, without long-term current use of insulin ([facility])- Primary Benign essential hypertension Essential hypertension, benign Fibromyalgia Unspecified myalgia and myositis Major depressive disorder, recurrent episode, mild Major depressive disorder, recurrent episode, mild Generalized anxiety disorder Generalized anxiety disorder Chronic diastolic heart failure ([facility]) Chronic diastolic heart failure Primary insomnia Persistent disorder of initiating or maintaining sleep Stage 3b chronic kidney disease (CKD) ([facility]) Type 2 diabetes mellitus without complication, unspecified whether prison insulin use ([facility])- Primary Pain due to onychomycosis of toenails of both feet Venous insufficiency Unspecified venous (peripheral) insufficiency documented in this encounter [facility] note* Diagnosis Closed fracture of right hip, initial encounter ([facility])- Primary Closed fracture of right hip, initial encounter ([facility]) Type 2 diabetes mellitus with stage 3b chronic kidney disease, with long-term current use of insulin ([facility]) [facility] Diagnosis S/P hip hemiarthroplasty- Primary [facility]* Diagnosis Age-related osteoporosis with current pathological fracture with routine healing - Primary History of right hip hemiarthroplasty Closed fracture of neck of right femur, sequela [facility]* Initiate Home Health [...] doctor or pharmacist, without first calling the director of solutions architecture who implanted the stent. If you require [...] weight lifting, stair steppers, etc. until the director of solutions architecture approves these activities. Check with the director of solutions architecture on your first follow-up visit. CALL YOUR PHYSICIAN at [phone]: -If bleeding should occur from the catheter insertion site- apply pressure to the site then immediately call us. -Report any fever, redness, drainage, increased swelling, or firmness at the catheter insertion site. Some bruising or slight swelling may be present at the time of discharge. -Should arm or leg become cold, numb, white, or blue, contact the director of solutions architecture immediately. -IF you should experience episodes of [...] is recommended. Please call Central Scheduling at [phone] to schedule your appointment.] The attending director of solutions architecture or [facility] nurse clinician should provide you with specific instructions regarding activity, diet, medications, and further follow up for you. Follow the medication instructions provided on your discharge. If the dosages and instructions on this sheet differ from the dosage and instructions on the bottle, follow the instructions on the bottle. [facility] is not responsible for incorrect prescription information provided by the patient during their visit. Do not stop your medications without consulting your health care provider. Please take the list with you to your next doctor's appointment. Home Health to manage care: - Full code - PT/OT eval and treat - [facility] Work Phone: InstructionsNot on filedocumented in this encounter [employer] [facility] SystemInstructionsNot on filedocumented in this encounter [employer] SystemInstructionsNot on filedocumented in this encounter [employer] [facility] SystemInstructionsNot on filedocumented in this encounter [facility] SystemInstructionsNot on filedocumented in this encounter [facility] Summary Purpose Family History No Family History Records Found Relationship Condition Age at Onset Recorded Date/T tamiko Not Specified Diabetes mellitus Unknown Pulmonary emphysemaUnknownfatherCerebrovascular accident (CVA)Unknown Advance Directives No Advanced Directives Records Found Advance Directive Response Recorded Date/ Time Advance Directives No June 24, 2021 1:18am Date ActivatedDate AhrpgdinjcuUaothjld23/8/2025 5:39 PM10 5:47 PMDate ActivatedDate VqxnqbfkyqjSlshevlm07/8/2025 5:39 PM10 5:47 PM Chief Complaint and Reason for Visit Chief Complaint Non Stemi Reason for Visit CAD (coronary artery disease) Chronic kidney disease Depression Diabetes Fibromyalgia GERD (gastroesophageal reflux disease) HTN (hypertension) NSTEMI (non-ST elevated myocardial infarction) Additional Source Comments INFORMATION SOURCE (unrecogn ized section and content) DATE CREATED AUTHOR 09/19/2017 [facility] DATE CREATED AUTHOR AUTHOR'S ORGANIZ ATION 11/23/2019 [facility] DATE CREATED AUTHOR AUTHOR'S ORGANIZ ATION 07/30/2021 [facility] DATE CREATED AUTHOR AUTHOR'S ORGANIZ ATION 03/25/2022 [facility] DATE CREATED AUTHOR AUTHOR'S ORGANIZ ATION 07/05/2022 [facility] DATE CREATED AUTHOR AUTHOR'S ORGANIZ ATION 07/18/2024 [facility] DATE CREATED AUTHOR AUTHOR'S ORGANIZ ATION 09/08/2024 [facility] DATE CREATED AUTHOR AUTHOR'S ORGANIZ ATION 09/08/2024 [facility] DATE CREATED AUTHOR AUTHOR'S ORGANIZ ATION 11/28/2024 [facility] DATE CREATED AUTHOR AUTHOR'S ORGANIZ ATION 12/12/2024 [facility] Reason for Visit (unrecogniz ed section and content) ReasonCommentsChest symptoms/complaintsReasonCommentsMed RefillReasonComments Follow-bi8uVMRYmtgqiPcwfpmoyJV Foot CareDm nail careReasonCommentsFollow-upTbh er f/up 02/23/24Knee PainReasonCommentsMedicare Annual Wellness Visit Initial WELLNESSReasonCommentsDM Foot Caredmnail careReasonCommentsFollow-up3m f/up DizzinessNeck PainReasonCommentsDM Foot CareReasonCommentsFallSpecialtyDiagnoses / ProceduresReferred By ContactReferred To Contact Diagnoses Pre-op exam Closed fracture of right hip, initial encounter ([facility]) Gonzalo Rolle MD [address] [place] [address] Phone: tel: fax: Referral IDStatusReasonStart DateExpiration DateVisits RequestedVisits [id number]-erm/p R hip ydlon (11/27), XR [facility] transport will be waiting inwaiting room for patientPost-op Care Teams (unrecognized sec tion and content) Team Status: Inactive Member Role Status Dates Amador Abdalla MD Primary Care Provider Active Xander Ortiz MDAdmit ProviderActiveElba Pittman RNOther ProviderActiveW Domingo Bolivar , DOOther ProviderActiveWil Domínguez MDOther ProviderActiveZafar Luu MDOther ProviderActiveMogaston Beckwith MDOther ProviderActiveRufus Sauceda MDOther ProviderActiveDonbessie Kaur , APRNOther ProviderActiveLatosha Figueroa MDOther ProviderActive Dinora Haynes MDOther ProviderActiveRahul Hi MDOther Provider ActiveRusty Amor MDAttending ProviderActive Team Status: Active Member Role Status Dates Amador Abdalla MD Primary Care Provider Active Team MemberRelationshipSpecialtyStart DateEnd Date Amador Abdalla MD [address] [place] [address] PCP - GeneralFamily Medicine04/25/23Team MemberRelationshipSpecialtyStart DateEnd Date Amador Abdalla MD [address] [place] [address] PCP - GeneralFamily Medicine04/25/23Team MemberRelationshipSpecialtyStart DateEnd Date Amador Abdalla MD [address] [place] [address] PCP - GeneralFamily Medicine04/25/23Team MemberRelationshipSpecialtyStart DateEnd Date Amador Abdalla MD [address] [place] [address] PCP - GeneralFamily Medicine04/25/23Team MemberRelationshipSpecialtyStart DateEnd Date Amador Abdalla MD [address] [place] [address] PCP - GeneralFamily Medicine04/25/23Team MemberRelationshipSpecialtyStart DateEnd Date Amador Abdalla MD [address] [place] [address] PCP - GeneralFamily Medicine04/25/23Team MemberRelationshipSpecialtyStart DateEnd Date Amador Abdalla MD [address] [place] [address] PCP - GeneralFamily Medicine04/25/23Team MemberRelationshipSpecialtyStart DateEnd Date Amador Abdalla MD [address] [place] [address] PCP - GeneralFamily Medicine04/25/23 Carmina Garcia, [facility] Social [facility] Medicine02/28/24 Miguel Blank MA Family Medicine02/28/24Team MemberRelationshipSpecialtyStart DateEnd Date Amador Abdalla MD [address] [place] [address] PCP - GeneralFamily Medicine04/25/23 Carmina Garcia, [facility] Social Workermily Medicine02/28/24 Miguel Blank MA Family Medicine02/28/24Team MemberRelationshipSpecialtyStart DateEnd Date Amador Abdalla MD [address] [place] [address] PCP - GeneralFamily Medicine04/25/23 Carmina Garcia, [facility] Social Workermi Medicine02/28/24 Miguel Blank, YULY Family Medicine02/28/24Team MemberRelationshipSpecialtyStart DateEnd Date Amador Abdalla MD [address] [place] [address] PCP - GeneralFamily Medicine04/25/23 Carmina Garcia, [facility] Social Workermi Medicine02/28/24 Miguel Blank MA Family Medicine02/28/24Team MemberRelationshipSpecialtyStart DateEnd Date Amador Abdalla MD [address] [place] [address] PCP - GeneralFamily Medicine04/25/23 Carmina Garcia, [facility] Social Workermily Medicine02/28/24 Miguel Blank, YULY Family Medicine02/28/24Team MemberRelationshipSpecialtyStart DateEnd Date Amador Abdalla MD [address] [place] [address] PCP - GeneralFamily Medicine04/25/23 Carmina Garcia, [facility] Social WorkerFamily Medicine02/28/24 Miguel Blank MA Family Medicine02/28/24Team MemberRelationshipSpecialtyStart DateEnd Date Amador Abdalla MD PCP - GeneralFamily Nlecnyan07/27/21Team MemberRelationshipSpecialtyStart Date End Date Amador Abdalla MD PCP - GeneralFamily Fporzjsp32/27/21Team MemberRelationshipSpecialtyStart Date End Date Amador Abdalla MD PCP - GeneralFamily Oddirguy55/27/21Team MemberRelationshipSpecialtyStart Date End Date Amador Abdalla MD [address] [place] [address] PCP - GeneralFamily Medicine04/25/23 Amador Abdalla MD [address] [place] [address] PCP - [place] MA02/20/24 Carmina Garcia, [facility] Social Workermily Medicine02/28/24 Miguel Blank MA Family Medicine02/28/24Team MemberRelationshipSpecialtyStart DateEnd Date Amador Abdalla MD [address] [place] [address] PCP - GeneralFamily Medicine04/25/23 Amador Abdalla MD [address] [place] [address] PCP - [place]ill[place] EMERY02/20/24 Carmina Garcia, [facility] Medicine02/28/24 Miguel Blank MA [facility]02/28/24Team MemberRelationshipSpecialtyStart DateEnd Date Amador Abdalla MD [address] [place] [address] PCP - Generalmily Medicine04/25/23 Amador Abdalla MD [address] [place] [address] PCP - [place]02/20/24 Carmina Garcia, [facility] Medicine02/28/24 Miguel Blank MA [facility]02/28/24Team MemberRelationshipSpecialtyStart DateEnd Date Amador Abdalla MD [address] [place] [address] PCP - Generalmily Medicine04/25/23 Amador Abdalla MD [address] [place] [address] PCP - [place] EMERY02/20/24 Carmina Garcia, [facility] Medicine02/28/24 Miguel Blank MA Family [facility]02/28/24Team MemberRelationshipSpecialtyStart DateEnd Date Aamdor Abdalla MD [address] [place] [address] PCP - [facility] Medicine04/25/23 Amador Abdalla MD [address] [place] [address] PCP - [place]02/20/24 Carmina Garcia, [facility] Medicine02/28/24 Miguel Blank MA [facility]02/28/24Team MemberRelationshipSpecialtyStart DateEnd Date Amador Abdalla MD [address] [place] [address] PCP - [facility]Ad[facility]04/25/23 Amador Abdalla MD [address] [place] [address] PCP - [place]02/20/24 Miguel Blank MA [address] [place] [address] [facility]02/28/24Team MemberRelationshipSpecialtyStart DateEnd Date Amador Abdalla MD [address] [place] [address] PCP - GeneralAd[facility]04/25/23 Amador Abdalla MD [address] [place] [address] PCP - [place]02/20/24 Miguel Blank MA [address] [place] [address] [facility]02/28/24Team MemberRelationshipSpecialtyStart DateEnd Date Aamdor Abdalla MD [address] [place] [address] PCP - Generalmi Medicine04/25/23 Aamdor Abdalla MD [address] [place] [address] PCP - [place]02/20/24 Miguel Blank MA [address] [place] [address] [facility]02/28/24Team MemberRelationshipSpecialtyStart DateEnd Date Amador Abdalla MD [address] [place] [address] PCP - [facility] Medicine04/25/23 Amador Abdalla MD [address] [place] [address] PCP - [place]02/20/24 Miguel Blank MA [address] [place] [address] [facility]02/28/24Team MemberRelationshipSpecialtyStart DateEnd Date Amador Abdalla MD [address] [place] [address] PCP - [facility] [facility]04/25[facility]23 Amador Abdalla MD [address] [place] [id number] PCP - [place]02/20/24 Miguel Blank, YULY [address] [place] [address] Family Medicine02/28/24Team MemberRelationshipSpecialtyStart DateEnd Date Amador Abdalla MD [address] [place] [id number] [facility] Qqyzkfmg83/8/25Te MemberRelationshipSpecialtyStmontcalm DateEnd Amador Abdalla MD [address] [place] [phone] [facility] - [facility] Coxeunuz26/8/25Te MemberRelationsRiverside County Regional Medical CenterpecialtyStart DateEnd Date Amador Abdalla MD [address] [place] [id number] PCP - Generalmi Wijtmzcj07/8/25 Scheduled Active and Recently Administ ered Medications [...] 15 Minutes, Daily, First dose on Sun11/30/24 [id number], For 5 doses, Monitor patient for hypersensitivity [...] - pain scale 1-6, Starting on Sun11/26/24 [id number], For patients less than 75 years of [...] BE BASED ON THE PRIMARY CLINICAL RECORDS. [facility]. provides no warranty or guarantee of the accuracy or completeness of information in this document.
--- OUTSIDE RECORDS SUMMARY | 2024-12-14 15:24 | XMS_ITS | Patient Health Record ---
Author Organization The [facility] in [place] Address [address] [address] Care Team Providers Care Boring Machine Set Up Operator Jig Name Role Phone John BARRIOS, Amador Primary Care Provider Evonne del toro Kj Oniel Bolden [phone] Results Component Value Reference Range Notes BNP Reviewed date:04/02/2024 10:04:46 PM Interpretation: Performing Lab: Notes/Report: [facility] , NT Pro B Type Natriuretic Pept 1433.0 <=1800.0 p g/mL Performing Lab:see noteML - [facility] LBLACTATE or LACTIC ACID Reviewed date:04/02/2024 10:04:46 PM Interpretation: Performing Lab: Notes/Report: Comment er blood if possible [facility] ,Lactate/Lactic Acid1.90.4-2.0 mmol/LPerforming Lab:see noteML - [facility] LBMAGNESIUM Reviewed date:04/02/2024 10:04:46 PM Interpretation: Performing Lab: Notes/Report: [facility] ,Magnesium2.21.8-2.4 mg/dLPerforming Lab:see noteML - [facility] LB Troponin I High Sensitivity Reviewed date:04/02/2024 10:04:46 PM Interpretation: Performing Lab: Notes/Report: [facility] ,Troponin I High Fvmgranryma78.44.0-51.3 pg/mL CUT-OFF POINTS HAVE BEEN ESTABLISHED BASED ON THE FOURTH UNIVERSAL DEFINITION OF MYOCARDIAL INFARCTION. THE UPPER REFERENCE LIMIT (URL) OF TROPONIN, DEFINED THE 99TH PERCENTILE OF cTnI DISTRIBUTION IN A REFERENCE POPULATION, HAS BEEN CONFIRMED THE DECISION THRESHOLD FOR NM DIAGNOSIS. 99TH PERCENTILE = 51.4 PG/ML NOTE: HIGH-SENSITIVITY TROPONIN ASSAY IS NOT INTENDED TO BE USED IN ISOLATION BUT SHOULD BE INTERPRETED IN CONJUNCTION WITH OTHER DIAGNOSTIC AND CLINICAL INFORMATION. Performing Lab:see noteML - [facility] LBCBC AUTO DIFF Reviewed date:04/03/2024 08:07:01 PM Interpretation: Performing Lab: Notes/Report: [facility] ,White Blood Count7.74.0-11.0 10 3/uLRed Blood Count3.594.20-5.40 10 6/uL Ljiklvujus59.112.0-16.0 g/wFPxcbihuoux98.436.0-48.0 %Mean Corpuscular Rbegzh47.0 81.0-99.0 fLMean Corpuscular Hxtvgzzmmi14.926.7-34.0 pgMean Corpuscular HGB Conc 33.229.9-35.2 g/dLRed Cell Distribution Width12.311.0-15.0 %Platelet Kyktk152 150-450 10 3/uLMean Platelet Vkboya64.49.5-13.5 fLNeutrophils Percent Auto63.2 43.0-75.0 %Lymphocytes Percent Auto21.820.5-60.0 %Monocytes Percent Auto10.81.7- 12.0 %Eosinophils Percent Auto3.40.9-7.0 %Basophils Percent Auto0.50.2-2.0 % Immature Granulocytes Pct Auto0.30.0-0.5 %Neutrophils Absolute Auto4.81.4-6.5 10 3/uLLymphocytes Absolute Auto1.71.2-3.8 10 3/uLMonocytes Absolute Auto0.80.3-0.8 10 3/uLEosinophils Absolute Auto0.30.0-0.7 10 3/uLBasophils Absolute Auto0.00.0- 0.1 10 3/uLImmature Granulocytes Abs Auto0.020.00-0.03 10 3/uLPerforming Lab:see noteML - [facility] LBPROF CHEM 8 (BAS METB) Reviewed date:04/03/2024 08:07:01 PM Interpretation: Performing Lab: Notes/Report: [facility] ,Fypegf131984-022 mmol/LPotassium3.83.5-5.1 mmol/LNlnqekkx67885-767 mmol/LCarbon Guuurup38.321.0-32.0 mmol/LAnion Gap9.8Kqlsaxo33748-549 mg/dLBlood Urea Nitrogen 27.07.0-18.0 mg/dLCreatinine1.980.55-1.02 mg/dLEstimated GFR ( Pqyuxkr86 >=60 mL/min/1.73m 2Estimated GFR (Non- Ame25>=60 mL/min/1.73m 2BUN Creatinine Ratio13.6Zbwvdiz2.28.5-10.1 mg/dLPerforming Lab:see noteML - [facility] LBCBC AUTO DIFF Reviewed date:04/04/2024 06:53:52 AM Interpretation: Performing Lab: Notes/Report: [facility] ,White Blood Count7.84.0-11.0 10 3/uLRed Blood Count3.494.20-5.40 10 6/uL Ypkooorybs96.712.0-16.0 g/cIHvbfhtdbsw32.236.0-48.0 %Mean Corpuscular Ciackg72.1 81.0-99.0 fLMean Corpuscular Knvwhwcbbt54.726.7-34.0 pgMean Corpuscular HGB Conc 32.229.9-35.2 g/dLRed Cell Distribution Width12.411.0-15.0 %Platelet Fbsdo920 150-450 10 3/uLMean Platelet Bgxogb18.79.5-13.5 fLNeutrophils Percent Auto59.8 43.0-75.0 %Lymphocytes Percent Auto24.520.5-60.0 %Monocytes Percent Auto11.31.7- 12.0 %Eosinophils Percent Auto3.60.9-7.0 %Basophils Percent Auto0.50.2-2.0 % Immature Granulocytes Pct Auto0.30.0-0.5 %Neutrophils Absolute Auto4.61.4-6.5 10 3/uLLymphocytes Absolute Auto1.91.2-3.8 10 3/uLMonocytes Absolute Auto0.90.3-0.8 10 3/uLEosinophils Absolute Auto0.30.0-0.7 10 3/uLBasophils Absolute Auto0.00.0- 0.1 10 3/uLImmature Granulocytes Abs Auto0.020.00-0.03 10 3/uLPerforming Lab:see noteML - [facility] LBPROF CHEM 8 (BAS METB) Reviewed date:04/04/2024 06:53:52 AM Interpretation: Performing Lab: Notes/Report: [facility] ,Rrumsr817395-773 mmol/LPotassium3.93.5-5.1 mmol/YKgjdsxjo46993-014 mmol/LCarbon Krkcehu57.221.0-32.0 mmol/LAnion Gap9.7Bkbsgki74404-703 mg/dLBlood Urea Nitrogen 30.07.0-18.0 mg/dLCreatinine2.000.55-1.02 mg/dLEstimated GFR ( Kkkjqvq23 >=60 mL/min/1.73m 2Estimated GFR (Non- Ame24>=60 mL/min/1.73m 2BUN Creatinine Ratio15.5Tolgmwn8.48.5-10.1 mg/dLPerforming Lab:see noteML - [facility] LBCBC AUTO DIFF Reviewed date:04/23/2024 09:30:04 PM Interpretation: Performing Lab: Notes/Report: [facility] ,White Blood Count7.84.0-11.0 10 3/uLRed Blood Count3.074.20-5.40 10 6/uL Hemoglobin9.212.0-16.0 g/rPWmlhmaekyf15.636.0-48.0 %Mean Corpuscular Ofwulz92.4 81.0-99.0 fLMean Corpuscular Hdicvenhyu61.026.7-34.0 pgMean Corpuscular HGB Conc 31.129.9-35.2 g/dLRed Cell Distribution Width12.111.0-15.0 %Platelet Izceu540 150-450 10 3/uLMean Platelet Grncpx43.19.5-13.5 fLNeutrophils Percent Auto70.1 43.0-75.0 %Lymphocytes Percent Auto11.920.5-60.0 %Monocytes Percent Auto11.31.7- 12.0 %Eosinophils Percent Auto5.90.9-7.0 %Basophils Percent Auto0.30.2-2.0 % Immature Granulocytes Pct Auto0.50.0-0.5 %Neutrophils Absolute Auto5.51.4-6.5 10 3/uLLymphocytes Absolute Auto0.91.2-3.8 10 3/uLMonocytes Absolute Auto0.90.3-0.8 10 3/uLEosinophils Absolute Auto0.50.0-0.7 10 3/uLBasophils Absolute Auto0.00.0- 0.1 10 3/uLImmature Granulocytes Abs Auto0.040.00-0.03 10 3/uLPerforming Lab:see noteML - [facility] LBTroponin I High Sensitivity Reviewed date:04/23/2024 09:30:04 PM Interpretation: Performing Lab: Notes/Report: [facility] ,Troponin I High Mwtretggfxm239.74.0-51.3 pg/mL RESULTS CALLED TO HELLEN FOSTER RN AT 0856 CUT-OFF POINTS HAVE BEEN ESTABLISHED BASED ON THE FOURTH UNIVERSAL DEFINITION OF MYOCARDIAL INFARCTION. THE UPPER REFERENCE LIMIT (URL) OF TROPONIN, DEFINED THE 99TH PERCENTILE OF cTnI DISTRIBUTION IN A REFERENCE POPULATION, HAS BEEN CONFIRMED THE DECISION THRESHOLD FOR NM DIAGNOSIS. 99TH PERCENTILE = 51.4 PG/ML NOTE: HIGH-SENSITIVITY TROPONIN ASSAY IS NOT INTENDED TO BE USED IN ISOLATION BUT SHOULD BE INTERPRETED IN CONJUNCTION WITH OTHER DIAGNOSTIC AND CLINICAL INFORMATION. Performing Lab:see noteML - [facility] LBTroponin I High Sensitivity Reviewed date:04/23/2024 09:30:04 PM Interpretation: Performing Lab: Notes/Report: [facility] ,Troponin I High Cuysasxpmbb230.34.0-51.3 pg/mL RESULTS CALLED TO HELLEN FOSTER RN AT 1347 CUT-OFF POINTS HAVE BEEN ESTABLISHED BASED ON THE FOURTH UNIVERSAL DEFINITION OF MYOCARDIAL INFARCTION. THE UPPER REFERENCE LIMIT (URL) OF TROPONIN, DEFINED THE 99TH PERCENTILE OF cTnI DISTRIBUTION IN A REFERENCE POPULATION, HAS BEEN CONFIRMED THE DECISION THRESHOLD FOR NM DIAGNOSIS. 99TH PERCENTILE = 51.4 PG/ML NOTE: HIGH-SENSITIVITY TROPONIN ASSAY IS NOT INTENDED TO BE USED IN ISOLATION BUT SHOULD BE INTERPRETED IN CONJUNCTION WITH OTHER DIAGNOSTIC AND CLINICAL INFORMATION. Performing Lab:see noteML - [facility] LBECG 12 lead Reviewed date:04/24/2024 09:06:49 PM Interpretation: Performing Lab: Notes/Report: Source Facility: [facility]-[address] [place] [address] [address] Electrocardiograph Report Signed Patient: RIVKA TURNER MR#: [id number] : 1945 Acct:[id number] Age/Sex: 78 / F ADM Date: 04/22/24 Loc: MS 203- Attending Dr: Sid Woodall M.D. Ordering Physician: Sid Woodall M.D. Date of Service: 04/23/24 Procedure(s): ECG 12 lead Accession Number(s): [id number] cc: [facility] Test Date: 2024-04-23 Pat Name: RIVKA TURNER Department: Room: [facility] Gender: Female Recycling Manager: : 1945 Requested By: SID WOODALL Order Number: [id number] Reading MD: CAROLINA LUCIO M.D. Measurements Intervals [place] Rate: 76 P: 65 NM: 158 QRS: 17 QRSD: 95 T: 63 [...] Signed By: 04/24/24 0641 DD/ 1729 TD/TT: Roadway Designer:Troponin I High Sensitivity Reviewed date:04/23/2024 09:30:04 PM Interpretation: Performing Lab: Notes/Report: [facility] ,Troponin I High Dmzdsdborwr643.14.0-51.3 pg/mL RESULTS CALLED TO JOSE GRAHAM RN at 2103 CUT-OFF POINTS HAVE BEEN ESTABLISHED BASED ON THE FOURTH UNIVERSAL DEFINITION OF MYOCARDIAL INFARCTION. THE UPPER REFERENCE LIMIT (URL) OF TROPONIN, DEFINED THE 99TH PERCENTILE OF cTnI DISTRIBUTION IN A REFERENCE POPULATION, HAS BEEN CONFIRMED THE DECISION THRESHOLD FOR NM DIAGNOSIS. 99TH PERCENTILE = 51.4 PG/ML NOTE: HIGH-SENSITIVITY TROPONIN ASSAY IS NOT INTENDED TO BE USED IN ISOLATION BUT SHOULD BE INTERPRETED IN CONJUNCTION WITH OTHER DIAGNOSTIC AND CLINICAL INFORMATION. Performing Lab:see note - [facility] LBTroponin I High Sensitivity Reviewed date:04/24/2024 09:06:49 PM Interpretation: Performing Lab: Notes/Report: [facility] ,Troponin I High Jymxwasmhkv31.04.0-51.3 pg/mL RESULTS CALLED TO JOSE GRAHAM RN at 0012 CUT-OFF POINTS HAVE BEEN ESTABLISHED BASED ON THE FOURTH UNIVERSAL DEFINITION OF MYOCARDIAL INFARCTION. THE UPPER REFERENCE LIMIT (URL) OF TROPONIN, DEFINED THE 99TH PERCENTILE OF cTnI DISTRIBUTION IN A REFERENCE POPULATION, HAS BEEN CONFIRMED THE DECISION THRESHOLD FOR NM DIAGNOSIS. 99TH PERCENTILE = 51.4 PG/ML NOTE: HIGH-SENSITIVITY TROPONIN ASSAY IS NOT INTENDED TO BE USED IN ISOLATION BUT SHOULD BE INTERPRETED IN CONJUNCTION WITH OTHER DIAGNOSTIC AND CLINICAL INFORMATION. Performing Lab:see note - [facility] LBUA (CLEAN or CATCH) US ADMINISTRATIVE LAW JUDGE or MICRO IF IND. Reviewed date:04/24/2024 09:06:49 PM Interpretation: Performing Lab: Notes/Report: [facility] ,Color UrineLT. YELLOWYELLOWClarity UrineCLEARCLEARSpecific [place] Urine1.020 1.005-1.025pH Urine5.55.0-9.0Protein Lnzeu437PTE/TRACE mg/dLGlucose Urine UA NEGATIVENEGATIVE mg/dLBilirubin UrineNEGATIVENEGATIVEKetones UrineNEGATIVE NEGATIVE mg/dLBlood UrineNEGATIVENEGATIVENitrite UrineNEGATIVENEGATIVE Urobilinogen Urine0.20.2-1.0 EU/dLLeukocyte Esterase UrineNEGATIVENEGATIVEUrine Microscopic IndicatedYESPerforming Lab:see note - [facility] LB URINE MICROSCOPIC ONLY Reviewed date:04/24/2024 09:06:49 PM Interpretation: Performing Lab: Notes/Report: [facility] ,WBC UrineNONE SEENNONE SEEN #/HPFRBC UrineNONE SEEN0-2 #/HPFBacteria UrineNONE SEENNONE SEEN #/HPFMucus UrineNONE SEENNONE SEENSquamous Epithelial Cell Urine FEWNONE/RARE #/LPFYeast UrineSEENNONE SEENUrine Culture IndicatedNOPerforming Lab:see noteML - [facility] LBTroponin I High Sensitivity Reviewed date:04/23/2024 09:30:04 PM Interpretation: Performing Lab: Notes/Report: [facility] ,Troponin I High Mfizecpnmoq903.04.0-51.3 pg/mL RESULTS CALLED TO HELLEN FOSTER RN CUT-OFF POINTS HAVE BEEN ESTABLISHED BASED ON THE FOURTH UNIVERSAL DEFINITION OF MYOCARDIAL INFARCTION. THE UPPER REFERENCE LIMIT (URL) OF TROPONIN, DEFINED THE 99TH PERCENTILE OF cTnI DISTRIBUTION IN A REFERENCE POPULATION, HAS BEEN CONFIRMED THE DECISION THRESHOLD FOR NM DIAGNOSIS. 99TH PERCENTILE = 51.4 PG/ML NOTE: HIGH-SENSITIVITY TROPONIN ASSAY IS NOT INTENDED TO BE USED IN ISOLATION BUT SHOULD BE INTERPRETED IN CONJUNCTION WITH OTHER DIAGNOSTIC AND CLINICAL INFORMATION. Performing Lab:see noteML - [facility] LBCA echo doppler complete Reviewed date:04/23/2024 09:30:04 PM Interpretation: Performing Lab: Notes/Report: Source Facility: [place] [address] Cardiology Report Signed Patient: RIVKA TURNER MR#: [id number] : 1945 Acct:[id number] Age/Sex: 78 / F ADM Date: 04/22/24 Loc: MS 203-[address]: Sid Woodall M.D. Ordering Physician: Sid Woodall M.D. Date of Service: 04/23/24 Procedure(s): CA echo doppler complete Accession Number(s): [id number] cc: Sid Woodall M.D.; Amador Lopez M.D. Patient Name: RIVKA TURNER MR#: [id number] : 1945 Exam Date: 04/23/2024 Ordering Doctor: [...] LUCIO Signed By: 04/23/241746 DD/ 45 TD/TT: Roadway Designer:ECG 12 lead Reviewed date:04/24/2024 09:06:49 PM Interpretation: Performing Lab: Notes/Report: Source Facility: [place] [address] Electrocardiograph Report Signed Patient: RIVKA TURNER MR#: [id number] : 1945 Acct:[id number] Age/Sex: 78 / F ADM Date: 04/22/24 Loc: MS 203- Attending Dr: Sid Woodall M.D. Ordering Physician: Sid Woodall M.D. Date of Service: 04/23/24 Procedure(s): ECG 12 lead Accession Number(s): [id number] cc: [facility] Test Date: 2024-04-23 Pat Name: RIVKA TURNER Department: Room: [facility] Gender: Female Recycling Manager: : 1945 Requested By: SID WOODALL Order Number: [id number] Reading MD: CAROLINA LUCIO M.D. Measurements Intervals [place] Rate: 58 P: 62 NM: 162 QRS: 57 QRSD: 95 T: 34 QT: 443 QTc: 437 Interpretive Statements SINUS BRADYCARDIA NONSPECIFIC T-WAVE ABNORMALITY Compared to ECG 04/22/2024 13:50:41 T-wave abnormality now present ST (T wave) deviation no longer present Possible ischemia no longer present Electronically Signed On 04-24-2024 6:27:40 EST by CAROLINA LUCIO M.D. Dictated By: CAROLINA LUCIO Signed By: 04/24/2427 DD/ 1137 TD/TT: Roadway Designer:Troponin I High Sensitivity Reviewed date:04/23/2024 09:30:04 PM Interpretation: Performing Lab: Notes/Report: [facility] ,Troponin I High Cehtazsjaft202.24.0-51.3 pg/mL RESULTS CALLED TO JOSE GRAHAM RN @BY Tyra Ball at 0554 CUT-OFF POINTS HAVE BEEN ESTABLISHED BASED ON THE FOURTH UNIVERSAL DEFINITION OF MYOCARDIAL INFARCTION. THE UPPER REFERENCE LIMIT (URL) OF TROPONIN, DEFINED THE 99TH PERCENTILE OF cTnI DISTRIBUTION IN A REFERENCE POPULATION, HAS BEEN CONFIRMED THE DECISION THRESHOLD FOR NM DIAGNOSIS. 99TH PERCENTILE = 51.4 PG/ML NOTE: HIGH-SENSITIVITY TROPONIN ASSAY IS NOT INTENDED TO BE USED IN ISOLATION BUT SHOULD BE INTERPRETED IN CONJUNCTION WITH OTHER DIAGNOSTIC AND CLINICAL INFORMATION. Performing Lab:see noteML - [facility] LBPROF 14(COMP METB) Reviewed date:04/23/2024 09:30:04 PM Interpretation: Performing Lab: Notes/Report: [facility] ,Eolzii077529-800 mmol/LPotassium3.63.5-5.1 mmol/HDrhaybju44478-586 mmol/LCarbon Ftigrot44.121.0-32.0 mmol/LAnion Gap8.6Azqnsoj27251-293 mg/dLBlood Urea Lobszvde18.07.0-18.0 mg/dLCreatinine1.850.55-1.02 mg/dLEstimated GFR ( Enyqsxb73>=60 mL/min/1.73m 2Estimated GFR (Non- Ame27>=60 mL/min/1.73m 2 BUN Creatinine Ratio16.6Plgwiyc0.28.5-10.1 mg/dLBilirubin Total0.70.2-1.0 mg/dL Aspartate Amino Bqlkcuqjqdv061-03 U/LAlanine Vajccrqjlxucyavr1873-76 U/LAlkaline Dmpzmgufvzw7289-281 U/LTotal Protein6.16.4-8.2 g/dLAlbumin Level2.43.4-5.0 g/dL Globulin3.7Albumin Globulin Ratio0.6Performing Lab:see note - [facility] LBMAGNESIUM Reviewed date:04/23/2024 09:30:04 PM Interpretation: Performing Lab: Notes/Report: [facility] ,Magnesium1.71.8-2.4 mg/dLPerforming Lab:see note - [facility] LB BNP Reviewed date:04/23/2024 09:30:04 PM Interpretation: Performing Lab: Notes/Report: [facility] ,NT Pro B Type Natriuretic Wvjw7107.0<=1800.0 pg/mL RESULTS CALLED TO JOSE GRAHAM RN @BY Tyra Ball at 0554 Performing Lab:see note - [facility] LBTroponin I High Sensitivity Reviewed date:04/23/2024 09:30:04 PM Interpretation: Performing Lab: Notes/Report: Comment from er blood - or skip it [facility] ,Troponin I High Prxbjeaibbd409.74.0-51.3 pg/mL RESULTS CALLED TO JOSE GRAHAM RN CUT-OFF POINTS HAVE BEEN ESTABLISHED BASED ON THE FOURTH UNIVERSAL DEFINITION OF MYOCARDIAL INFARCTION. THE UPPER REFERENCE LIMIT (URL) OF TROPONIN, DEFINED THE 99TH PERCENTILE OF cTnI DISTRIBUTION IN A REFERENCE POPULATION, HAS BEEN CONFIRMED THE DECISION THRESHOLD FOR NM DIAGNOSIS. 99TH PERCENTILE = 51.4 PG/ML NOTE: HIGH-SENSITIVITY TROPONIN ASSAY IS NOT INTENDED TO BE USED IN ISOLATION BUT SHOULD BE INTERPRETED IN CONJUNCTION WITH OTHER DIAGNOSTIC AND CLINICAL INFORMATION. Performing Lab:see note - [facility] LBBNP Reviewed date:04/22/2024 07:48:52 PM Interpretation: Performing Lab: Notes/Report: Comment from ER blood collection [facility] ,NT Pro B Type Natriuretic Kfbu3796.0<=1800.0 pg/mL RESULTS CALLED TO JOSE GRAHAM RN @BY Tyra Ball at 1919 Performing Lab:see noteML - [facility] LBTSH Reviewed date:04/02/2024 10:04:46 PM Interpretation: Performing Lab: Notes/Report: [facility] ,Thyroid Stimulating Hormone1.9540.358-3.740 uIU/mLPerforming Lab:see note - [facility] LBT4 Reviewed date:04/02/2024 10:04:46 PM Interpretation: Performing Lab: Notes/Report: [facility] ,T4 Maklzbzcl77.204.80-13.90 ug/dLPerforming Lab:see note - [facility] LBTroponin I High Sensitivity Reviewed date:04/24/2024 09:06:49 PM Interpretation: Performing Lab: Notes/Report: [facility] ,Troponin I High Evofzlcwjzc14.94.0-51.3 pg/mL RESULTS CALLED TO JOSE GRAHAM RN at 0642 CUT-OFF POINTS HAVE BEEN ESTABLISHED BASED ON THE FOURTH UNIVERSAL DEFINITION OF MYOCARDIAL INFARCTION. THE UPPER REFERENCE LIMIT (URL) OF TROPONIN, DEFINED THE 99TH PERCENTILE OF cTnI DISTRIBUTION IN A REFERENCE POPULATION, HAS BEEN CONFIRMED THE DECISION THRESHOLD FOR NM DIAGNOSIS. 99TH PERCENTILE = 51.4 PG/ML NOTE: HIGH-SENSITIVITY TROPONIN ASSAY IS NOT INTENDED TO BE USED IN ISOLATION BUT SHOULD BE INTERPRETED IN CONJUNCTION WITH OTHER DIAGNOSTIC AND CLINICAL INFORMATION. Performing Lab:see noteML - [facility] LBPROF 14(COMP METB) Reviewed date:04/24/2024 09:06:49 PM Interpretation: Performing Lab: Notes/Report: [facility] ,Nwvrix969506-714 mmol/LPotassium3.83.5-5.1 mmol/WNphipabw4317-685 mmol/LCarbon Aykmjpp86.421.0-32.0 mmol/LAnion Gap11.1Uuhuajf35382-259 mg/dLBlood Urea Ogjascqf08.07.0-18.0 mg/dLCreatinine2.190.55-1.02 mg/dLEstimated GFR ( Vnoqjqj97>=60 mL/min/1.73m 2Estimated GFR (Non- Ame22>=60 mL/min/1.73m 2 BUN Creatinine Ratio16.0Imeuxca6.38.5-10.1 mg/dLBilirubin Total0.70.2-1.0 mg/dL Aspartate Amino Bgkqcjvtydz4162-40 U/LAlanine Nccnxjcrpcbjdnsc2533-36 U/L Alkaline Grhmescocfg0392-557 U/LTotal Protein6.16.4-8.2 g/dLAlbumin Level2.23.4- 5.0 g/dLGlobulin3.9Albumin Globulin Ratio0.6Performing Lab:see note - [facility] LBMAGNESIUM Reviewed date:04/24/2024 09:06:49 PM Interpretation: Performing Lab: Notes/Report: [facility] ,Magnesium1.71.8-2.4 mg/dLPerforming Lab:see note - [facility] LB BNP Reviewed date:04/24/2024 09:06:49 PM Interpretation: Performing Lab: Notes/Report: [facility] ,NT Pro B Type Natriuretic Canq1595.0<=1800.0 pg/mLRESULTS CALLED TO JOSE GRAHAM RN at 0642Performing Lab:see note - [facility] LBManual Differential Reviewed date:04/24/2024 09:06:49 PM Interpretation: Performing Lab: Notes/Report: [facility] ,Segmented Neutrophils % Hgyckk80.043.0-75.0Lymphocytes Percent Manual4.020.5- 60.0 %Monocytes Percent Manual1.01.7-12.0 %Eosinophils Percent Manual0.00.9-7.0 %Basophils Percent Manual0.00.2-2.0 %Segmented Neut Absolute Manual7.221.4-6.5 10 3/uLLymphocytes Absolute Manual0.301.20-3.80 10 3/uLMonocytes Absolute Manual 0.070.30-0.80 10 3/uLEosinophils Absolute Manual0.000.00-0.70 10 3/uLBasophils Abs Manual0.000.00-0.10 10 3/uLToxic Granulation1+Performing Lab:see note - [facility] LBCBC AUTO DIFF Reviewed date:04/24/2024 09:06:49 PM Interpretation: Performing Lab: Notes/Report: [facility] ,White Blood Count7.64.0-11.0 10 3/uLRed Blood Count3.264.20-5.40 10 6/uL Qufeerseqm09.012.0-16.0 g/gSAkflklcdsg18.636.0-48.0 %Mean Corpuscular Ltjikl20.9 81.0-99.0 fLMean Corpuscular Iezbeqkijp14.726.7-34.0 pgMean Corpuscular HGB Conc 32.729.9-35.2 g/dLRed Cell Distribution Width11.811.0-15.0 %Platelet Rcbnp367 150-450 10 3/uLMean Platelet Afcbqn25.49.5-13.5 fLPerforming Lab:see noteML - [facility] Reason For Referral No Information Problems Problem Type SNOMED Code ICD Code Onset Dates Problem Status W/U Status Risk Notes Problem Essential hypertension (55499568 ) Essential (primary) hypertension (I10) ActiveconfirmedProblemType II diabetes mellitus without complication (765063046) Type 2 diabetes mellitus without complications (E11.9)ActiveconfirmedProblem Anemia in chronic kidney disease (932789036)Anemia in chronic kidney disease (D63.1)ActiveconfirmedProblemDiabetic renal disease (937021382)Type 2 diabetes mellitus with diabetic chronic kidney disease (E11.22)ActiveconfirmedProblem Generalized anxiety disorder (13772523)Generalized anxiety disorder (F41.1) ActiveconfirmedProblemChronic kidney disease stage 4 (131624799)Chronic kidney disease, stage 4 (severe) (N18.4)ActiveconfirmedProblemGastroesophageal reflux disease (698212924)GERD (gastroesophageal reflux disease) (K21.9)Activeconfirmed ProblemEssential hypertension (28130010)Benign essential HTN (I10)Active confirmedProblemAcute kidney injury (15010934)Acute kidney injury (N17.9)Active confirmedProblemHeart failure (83394106)Pleural effusion due to CHF (congestive heart failure) (I50.9)ActiveconfirmedProblemAcute urinary tract infection (810638451)Acute UTI (N39.0)ActiveconfirmedProblemChronic kidney disease stage 4 (099567846)Chronic kidney disease (CKD), stage 4 (severe) (N18.4)Active confirmedProblemHyperglycemia due to type 1 diabetes mellitus (516158309432657) Poor control type I diabetes mellitus (E10.65)ActiveconfirmedProblemChronic kidney disease stage 3B (disorder) (281665062)Chronic kidney disease, stage 3b (N18.32)Activeconfirmed Encounters Encounter Location Date Provider Diagnosis [facility] [address] [place] [address] 04/14/2024 Oniel Woodall Acute kidney injury N17.9 and Acute UTI N39.0 Assessments Encounter Date Diagnosis (ICD Code) Assessment Notes Treatment Notes Treatment Clinical Notes Section Notes 04/14/2024 Acute kidney injury (ICD-10 - N1 7.9) 15 min planning and discussion reguarding in-pt status - eufzpylx47/24/2025ute UTI (ICD-10 - N39.0) Plan Of Treatment Next Appt Details Provider Name:Rodri Bravo, 12/25/2024 03:20:00 PM, [address] [place], [address], Insurance Providers Payer Name Payer Address Payer Phone Subscriber Number Group Number Insured Name Patient Relationship to Insured Coverage Start Date Coverage End Date [employer] ACC[employer] PPO PLUS LOCAL PLAN [address] [place] [id number] [facility] Turner Self - patient is the insured MEDICAID [place] [address] [place], [place] [id number] [phone], Charlotte[place] - patient is the [id number]
--- OUTSIDE RECORDS SUMMARY | 2024-12-14 15:25 | XMS_ITS | Clinical Summary ---
Author Organization [facility] Address [address] [place] [address] Care Team Providers Care Rn Urgent Care Name Role Phone Amador Lopez MD Primary Care Provider [phone] Allergies Active AllergyReactionsCriticalityNoted DateCommentsClindamycinAnaphylaxis,Other High05/26/20168184XrgjjkgPnddh02/08/2022CyclobenzaprineItching,Other,RashLow 12/11/20120336JaybkenbrorDhbkmcyj46/02/2460Wfc1506/02/2022ExenatideNausea Only,RashLow 12/27/2012Iodinated Contrast BlaviKdahm57/19/1345HphkiJgbfNwm24/23/2013 PenicillinsItching,Other,SppyFfm0712/11/2012ProchlorperazineOther,Unknown 12/11/20125174Crfwnczhto29/02/3239Yeeqwgfvcd21/14/2023TrazodoneNausea Only12/19/2019 Medications MedicationSigDispense QuantityRefillsLast FilledStart DateEnd DateStatus [...] 1 SPRAY INTO EACH NOSTRIL DAILY06/01/2022ctive HYDROcodone-acetaminophen ([place]) 5-325 mg tablet Take 1 tablet by [...] 90 tablet 306///6Active Active Problems ProblemNoted DateDiagnosed YatfBdxwgtiqru85/01/2024Encounter for long-term (current) use of kkahrafvblp54/23/2024Major depressive disorder, recurrent episode, mild03/13/2023 Overview (08/20/2023): Last Assessment & Plan: Mood stable with medication and continue. Primary osteoarthritis of both knees03/13/2023 Overview (08/20/2023): Last Assessment & Plan: Pain stable and use norco PRN. Abdominal massltered bowel xyaxjkix13 Benign neoplasm of ascending colonradycardia01/31/2023 01/31/2023ardiovascular stress test euzasrwu85ellulitis of lower limbyst of ovaryyslipidemia Edema of lower erhkrgzds48Epigastric pain HyperkalemiaInsomnia Irritable bowel cbjngpza83Nausea1Stage 3 chronic kidney dvdewyh25ognitive communication deficit ysphagia, oral phaseastro-esophageal reflux disease without weakfrzzuen34nxiety disorder, srkpkncixwp19History of hpqmkbb83Incisional hernia without obstruction or xekymtis62Long QT syndrome Low back pain, ntxyrdfwvhv14Major depressive disorder, recurrent, dxhjpugxksz97Muscle weakness (generalized)Other urogenital vgsquyxjrcb78/28/2023 01/31/2023Overflow incontinence of urineFibromyalgia ersonal history of transient ischemic attack (TIA), and cerebral infarction without residual mkcwqbyn70ulmonary hypertension, vphvrsrtfah06Seasonal allergic rhinitis Solitary cyst of unspecified zqatko11 Unspecified osteoarthritis, unspecified siteUnsteadiness on feetUnspecified abnormalities of gait and gixigwau66/28/2023 01/31/2023rachnoid cyst05/16/2022Vitamin D eslauhmmqk11 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 ypeibthw65/09/2022 Assessment & Plan (12/28/2021 4:20 PM EST): Continue goal-directed medical therapy aspirin lifelong, Plavix for at least 1 year post stent lastMay, Lipitor, carvedilol Continue risk factor modifications including heart healthy diet, regular exercise as tolerated- 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 06/24/21 Echo Assessment & Plan (12/28/2021 4:21 PM EST): Currently euvolemic without exacerbation Continue Lasix 20 mg daily Carotid artery zguykskn35/09/2022 Assessment & Plan (12/28/2021 4:21 PM EST): Continue statin Angina bcosojge71ObesityType 2 diabetes mellitus without qpvkrerlqybh31 Family History Medical HistoryRelationNameCommentsStrokeFatherBreast cancerMotherRelationName StatusCommentsFatherDeceasedMotherDeceased Social [...] Last Filed Vital Signs Vital SignReadingTime TakenCommentsBlood Ohwikyqp443/5006 2:53 PM EDT Ndkul612607/21/2024 2:53 PM KSGCeprepemycc05.6 ??C (97.9 ??F)08/29/2022 2:36 PM EDTRespiratory Rate--Oxygen Aqxqypzprd78%07/21/2024 2:53 PM EDTInhaled Oxygen Concentration--Evlfdz95.4 kg (175 lb)07/21/2024 2:53 PM HHFDevnud120.5 cm (5' 2 )07/21/2024 2:53 PM EDTBody Mass Index32.01007/21/2024 2:53 PM EDT Plan of Treatment Health MaintenanceDue DateLast DoneCommentsMedicare Annual Wellness (AWV) 1947Diabetes: Retinopathy Ptyznwzxu56/22/1958Depression Screening 1959Pneumococcal Vaccine: 50+ Years (1 of 2 - PCV)07/10/1966Adult Tetanus 07/10/1969Zoster Vaccines (1 of 2)07/10/1997Fall Risk Caknwcbce86/22/2013 Diabetes: Hemoglobin A1C5003/19/2024OVID-19 Vaccine (1 - season)2024Influenza Vaccine (#1), 11/23/2023, 11/23/2021, Additional history igugkcZudcwxjqgikVvidlpnqtwnu29/22/2021olorectal Cancer ScreeningDiscontinuedCT ColonographyDiscontinuedFIT-DNADiscontinuedFIT DiscontinuedFOBTDiscontinuedHIB VaccinesAged OutNo longer [...] 2.0 w/kg normal op mode, cards in 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 Insurance Care Teams Team MemberRelationshipSpecialtyStart DateEnd Date Amador Lopez MD [address] [place] [address] [facility]12/27/21
--- OUTSIDE RECORDS SUMMARY | 2024-12-14 15:25 | XMS_ITS | Encounter Summary ---
Author Organization [employer] Address [id number] [address] [place] [address] Care Team Providers Care Biometrics Technician Name Role Phone Amador Lopez MD Primary Care Provider [phone] Encounter Details DateTypeDepartmentCare Team (Latest Contact Info)Wgnzothwxps42/21/2025Orders Only [facility] [address] [place] [address] Maninder Byrd RN S/P hip hemiarthroplasty (Primary Dx) Social History Tobacco UseTypesPacks/DayYears UsedDateSmoking Tobacco: NeverSmokeless Tobacco: NeverAlcohol UseStandard Drinks/WeekCommentsNot Currently0 (1 standard drink = 0.6 oz pure alcohol)[facility] UtilitiesAnswerDate RecordedIn the past 12 months has the electric, gas, oil, or water company threatened to shut off services in your home?No11/26/2024PHQ-2AnswerDate RecordedTotal Fukod034PRAPARE - TransportationAnswerDate RecordedIn the past 12 months, [...] a part of a household?No11/26/2024hildcareAnswerDate RecordedChildcareUnknown 06/12/2019EmploymentAnswerDate VficktqhAntvmuwmdrEogzgvd36/12/2019Hunger ScreeningAnswerDate RecordedWithin the past 12 months we worried whether our food would run out before we got money to buy more.Never True12/10/2024Within the past 12 months the food we bought just didn't last and we didn't have money to get more.Never True12/10/2024CommentsNoSex and Gender Information ValueDate RecordedSex Assigned at BirthNot on fileLegal RioEjdrpn40/06/2015 11:56 AM EDTGender IdentityNot on fileSexual OrientationNot on filedocumented as of this encounter Plan of Treatment DateTypeDepartmentCare Team (Latest Contact Info)Lrcuygfxldo24/26/2025 1:00 PM ESTOffice Visit [facility] [address] [facility] [address] [place] [address] Kirby Andersen MD [address] [facility] [address] [place] [address] documented as of this encounter Goals GoalPatient Goal TypeAssociated ProblemsRecent ProgressPatient-Stated?Author <enter goal here> Abbie Holland LSW Note: Evaluation of progress towards goal: plan to go to care home facility for rehab needs documented as [...] Amador Lopez MD [address] [place] [address] PCP - GeneralFamily Pyqsivbi45/8/25documented as of this encounter
--- OUTSIDE RECORDS SUMMARY | 2024-12-14 15:27 | XMS_ITS | CCD ---
Author Organization [facility] Care Team Providers Care Quality Assurance Associate Name Role Phone ROSIE MELLO Unavailable Unavailable SVEN WILKINS Unavailable Unava ilable KELLI HANKINS Admitting Unavailable KELLI HANKINS Attending Unavailable AMADOR ABDALLA Primary Care Unavailable ROSIE LEWIS Referring Unavailable Unavailable Primary Care Provider Unavailromie e MD Amador Abdalla Primary Care Provider MD Xander Hammer Admit Provider SHAHNAZ Pittman Other Provider Unavailable DO Gen Bolviar Other Provider MD Wil Domínguez Other Provider [...] Unavailable Amador Abdalla MD Primary Care Provider [facility], Carmina Unavailable Miguel Blank MA Unavailable Unavailable Amador Abdalla MD Primary Care Provider Amador Abdalla MD Primary Care Provider [phone] Amador Abdalla MD Unavailable Sharon De La [...] of OnsetReaction(s) Facility (7 sources)Clindamycin; Translations: [CLINDAMYCIN]Drug Ljaaglc71-82-6144 Difficulty SwallowingThe [facility] ([facility] source)CodeineDrug Vytrvab48-10-0542Xlh [facility] (2 sources)cyclobenzaprine; Translations: [Flexeril]Drug Dihyqhm32-92-3644Wnp [facility] (3 sources)exenatideDrug Trmauuh09-13-2925Gya [facility] (6 sources)Penicillins; Translations: [PENICILLINS]Drug allergy (disorder) 49-42-0231JiawlhtOwl [facility] (2 sources)Prochlorperazine; Translations: [Compazine]Drug Sjhzxbz14-40-1618Ozr [facility] (2 sources)Iodinated Contrast Media - IV DyeDrug allergy (disorder)68-56-0095Vdu [facility] (1 source)trival; Translations: [trival]Propensity to adverse reactions (disorder)55-61-1214Zjn [facility] (4 sources)Amoxicillin; Translations: [amoxicillin]Drug Dskxgvm58-41-5786Onoomoh ReactionThe [facility] (20 sources)cyclobenzaprine; Translations: [cyclobenzaprine]Drug Allergy 90-00-4286Posctaq, Hives, Rash, Other (See Comments)[facility] (20 sources)Doxycycline; Translations: [doxycycline]Drug Qbpgxgq20-00-6445 DiarrheaThe [facility] (20 sources)exenatide; Translations: [exenatide]Drug Mmnjgwl34-22-0939Iipham Only, Rash, GI DisturbanceThe [facility] (20 sources)Prochlorperazine; Translations: [prochlorperazine]Drug Allergy 22-52-7832Wnsto (See Comments)[facility] (20 sources)Sucralfate; Translations: [sucralfate]Drug Elfwspf65-39-1317Buqdn, Other (See Comments)[facility] (20 sources)traZODone; Translations: [trazodone]Drug Yujzuwz71-30-6717Spullo Only, GI intolerance, GI DisturbanceThe [facility] (20 sources)Iodinated Contrast Media; Translations: [Iodinated Contrast Media] Allergy to gunscxgwv11-41-0916Eicus, Other (See Comments)[facility] (5 sources)Clindamycin; Translations: [clindamycin]Drug Wqzbagq65-57-0818 Anaphylaxis, Other (See Comments)[facility] (2 sources)Penicillins; Translations: [Penicillins]Allergy to drug (finding)[facility] 250 DO Work Phone: (1 source)ClindamycinDrug Tmhuylv75-30-6168CvvlimabcThe [facility] (1 source)PenicillinsDrug allergy (disorder)13-28-3149ZjopgxgdjThe [facility] (1 source)ClindamycinDrug AllergyThe [facility] (1 source)cyclobenzaprineDrug AllergyThe [facility] (1 source)LevamisoleDrug Nxqoulk17-61-9928Nnf [facility] (1 source)liraglutideDrug Mxltptl77-52-7110Tkv [facility] (1 source)ProchlorperazineDrug AllergyThe [facility] (2 sources)[place] (28)Drug allergy (disorder)The [facility] (1 source)Misc-DrugDrug allergy (disorder)The [facility] (20 sources)Codeine; Translations: [CODEINE]Drug Kgnxoym85-96-4852Khyxf, Other (See Comments)[facility] (20 sources)levoFLOXacin; Translations: [LEVOFLOXACIN]Drug Evbsebn90-00-1698LVQZ Healthcare (20 sources)liraglutide; Translations: [LIRAGLUTIDE]Drug Fpebldw91-07-9469Rsipcw OnlyNOWV Healthcare (20 sources)PenicillinsDrug Kggefhu56-51-0514Xtjyddr, Hives, RashNOMS Healthcare (20 sources)PromethazineDrug Cpqomuu46-18-9640XVVY Healthcare (20 sources)Ticagrelor; Translations: [TICAGRELOR]Propensity to adverse fbljloaua73-62-3818GUXI Healthcare (1 source)Clindamycin; Translations: [Cleocin HCl]Drug AllergyFisher [facility] ([facility] source)Penicillin; Translations: [penicillin]Drug [facility]ergyReg[facility] ([facility] source)[place] Prefilled Pen; Translations: [[place] Prefilled Pen]Propensity to adverse reactions (disorder)[facility] (6 sources)Contrast media; Translations: [DYE]Propensity to adverse reactions to drug (disorder)89-56-5182KocukanullMer[facility] (6 sources)OTHER; Translations: [OTHER]Propensity to adverse reactions (disorder)27-16-4912IzwuEauwvbmrbbKind[facility] (5 sources)Ethinyl Estradiol; Translations: [ETHINYL ESTRADIOL]Drug Allergy 92-55-6559Kqgiz (See Comments)[facility] Repository (5 sources)Levonorgestrel; Translations: [LEVONORGESTREL]Drug Oarbbbo16-89-0104 Other (See Comments)[facility] Repository (3 sources)liraglutideDrug Meeumxj64-37-7282PY [facility] (3 sources)PenicillinsPropensity to adverse reactions to vhfp37-91-5341Gjxiva Swelling, Hives, Itching, Other (See Comments), [facility] (3 sources)TicagrelorDrug Fflqkrn98-89-4199FreXmisbk [facility] Medications Current Medications MedicationDrug Class(es)DatesSig (Normalized)Sig (Original)acetaminophen 500 mg oral tablet (20 sources)Start: 11-26-2024 End: 16-20-8142wxyl 2 tablets by mouth every eight hoursacetaminophen [...] oral tablet (20 sources)Opioid AgonistStart: 06-09-2024 End: 28-56-7374hvdy 1 tablet by mouth four times daily as needed for pain HYDROcodone-acetaminophen ([place]) 5-325 MG tablet Indications: Primary osteoarthritis of both kneesTake 1 tablet by mouth 4 (four) times a day as needed for severe pain 90 tablet 06/09/2024 07/09/2024 ActiveStart: 02-25-2024 End: 49-12-1343uiom 1 tablet by mouth four times daily as needed for pain HYDROcodone-acetaminophen ([place]) 5-325 MG tablet Indications: Primary osteoarthritis of both kneesTake 1 tablet by mouth 4 (four) times a day as needed for severe pain 90 tablet 02/25/2024 03/26/2024 ActiveStart: 09-24-2023 End: 78-62-2420ifhe 1 tablet by mouth three times daily as needed for pain HYDROcodone-acetaminophen ([place]) 5-325 MG tablet Indications: Primary osteoarthritis of both kneesTake 1 tablet by mouth 3 (three) times a day as needed for severe pain 90 tablet 01/23/2024 02/25/2024 DiscontinuedStart: 94-25-6109xjmx 1 tablet by mouth every eight hoursHydrocodone-Acetaminophen Active 1 TAB PO Q8H June 24, 2021 4:16amalogliptin 6.25 mg oral tablet (8 sources)Start: 05-23-2024 End: 36-14-8993mlfo 1 tablet by mouth once dailyalogliptin ([place]) 6.25 MG tablet tablet Indications: Type 2 diabetes mellitus with hyperglycemia,without long-term current use of insulin ([facility]) Take 1 tablet (6.25 mg) by mouth Daily 30 ifrkdb2505/23/2024 06/22/2024 ActiveamLODIPine 5 mg oral tablet (20 sources)Dihydropyridine Calcium Channel BlockerStart: 40-31-7247mkhr 2 tablets by mouth in the morningamLODIPine (NORVASC) 5 mg tablet Take 2 tablets (10 mg total) by mouth in the morning. 12/02/2024 ActiveStart: 44-14-6941Ofnjc: 09-18-0347Vzlbf: 11-30-2024 End: 85-59-7506mboi 5 mg by mouth every twelve hoursStart: 02-21-2024 End: 19-36-3207nfdr 1 tablet by mouth once dailyamLODIPine (Norvasc) 10 MG tablet Indications: Coronary artery disease due to lipid rich plaque TAKE 1 TABLET BY MOUTH EVERY DAY 90 tablet 3 02/21/2024 08/28/2024 DiscontinuedStart: 15-44-8739rsxd 10 mg by mouth once dailyAmlodipine Active 10 MG PO Daily June 24, 2021 4:16amaspirin 81 mg oral tablet (20 sources)Platelet Aggregation Inhibitor, Nonsteroidal Anti-inflammatory Drug Start: 29-60-4122zvcz 81 mg by mouth once dailyAspirin Active [...] TOUCH ULTRA 2) w/Device kit (17 sources)Start: 65-56-8707Cqzsz Glucose Monitoring Suppl (ONE TOUCH ULTRA 2) w/Device kit Indications: Type 2 diabetes mellitus with hyperglycemia, without long-term current use of insulin ([facility]) USE DIRECTED 1 kit 05/26/2024 Active Start: 32-20-6668Dppkf Glucose Monitoring Suppl (ONE TOUCH ULTRA 2) w/Device kit Indications: Type 2 diabetes mellitus with hyperglycemia, without long-term current use of insulin ([facility]) USE DIRECTED 1 kit 05/26/2024 ActiveStart: 62-48-7110Fhqai Glucose Monitoring Suppl (ONE TOUCH ULTRA 2) w/Device kit Indications: Type 2 diabetes mellitus with hyperglycemia, without long-term current use of insulin ([facility]) 1 each Daily 1 kit 03/20/2024 Activecalcium citrate 950 mg oral tablet (5 sources)Start: 97-97-0406uzatrlk citrate (CALCITRATE) 200 mg (950 mg) tablet Take 2 tablets (400 mg total) by mouth in the morning and 2 tablets (400 mg total) at noon and 2 tablets (400 mg total) in the evening. Take with meals. 12/01/2024 ActiveStart: 98-74-7447Jtmub: 11-27-2024 End: 27-40-8812oqllngje 300 mg oral capsule (1 source)Cephalosporin AntibacterialStart: 03-11-2024 End: 75-46-0801ggxn 1 capsule by mouth in the morningcefdinir (Omnicef) 300 MG capsule Indications: Upper respiratory tract infection, unspecified type Take 1 capsule (300 mg) by mouth in the morning and 1 capsule (300 mg) before bedtime. Do all this for 10 days. 20 capsule 03/11/2024 03/21/2024 Activecefuroxime 250 mg oral tablet (4 sources)Cephalosporin AntibacterialStart: 11-30-2024 End: 61-98-0386Ovfeg: 11-28-2024 End: 27-98-8803rnryfwjkzgiowqo 0.05 mg oral tablet (20 sources)Vitamin DStart: 07-09-7663Qvlyb: 64-45-2977Romot: 11-27-2024 End: 31-89-0902folf 1 tablet by mouth in the morningcholecalciferol, vitamin D3, 2,000 units tablet Take 1 tablet (2,000 Units total) by mouth in the morning. 12/02/2024 ActiveStart: 36-45-6711vqbk 1 tablet by mouth once daily cholecalciferol (Vitamin D3) 25 MCG (1000 UT) tablet Indications: Vitamin D deficiency, unspecified, Vitamin D deficiency TAKE 1 TABLET BY MOUTH EVERY DAY 90 tablet 3 03/24/2024 ActiveStart: 70-71-9573icrk 1 tablet by mouth once daily cholecalciferol (Vitamin D3) 25 MCG (1000 UT) tablet Indications: Vitamin D deficiency, unspecified, Vitamin D deficiency TAKE 1 TABLET BY MOUTH EVERY DAY 90 tablet 3 03/20/2023 ActiveContinuous Glucose Power Mule Operator (FreeStyle Violet 3 [place]) device (13 sources)Start: 59-58-2994Duasdveoid Glucose Power Mule Operator (FreeStyle Violet 3 [place]) device Indications: Type 2 diabetes mellituswith hyperglycemia, without long-term current use of insulin ([facility]) 1 each continuously 1 each 05/27/2024 ActiveStart: 97-05-3466Hgybarnevi Glucose Power Mule Operator (FreeStyle Violet 3 [place]) device Indications: Type 2 diabetes mellituswith hyperglycemia, without long- term current use of insulin ([facility]/HCC) 1 each continuously 1 each 05/27/2024 ActiveContinuous Glucose Sensor (FreeStyle Violet 3 Sensor) misc (13 sources)Start: 54-31-9029Uvntgiqlua Glucose Sensor (FreeStyle Violet 3 Sensor) [facility] [place] Indications: Type 2 diabetes mellitus with hyperglycemia, without long-term current use of insulin ([facility]) 1 each continuously 2 each 11 05/27/2024 ActiveStart: 60-45-2501Dllpktrzig Glucose Sensor (FreeStyle Violet 3 Sensor) [facility] [place] Indications: Type 2 diabetes mellitus with hyperglycemia, without long-term current use of insulin ([facility]) 1 each continuously 2 each 11 05/27/2024 Active docusate sodium 50 mg / sennosides, fdc 8.6 mg oral tablet (5 sources)Start: 48-19-9013dmau 2 tablets by mouth once dailysennosides- docusate sodium (SENOKOT-S) 8.6-50 mg Take 2 tablets by mouth nightly. 12/01/2024 ActiveStart: 11-26-2024 End: 88-92-6959zoutttgleamxm 25 mg oral tablet (20 sources)Sodium-Glucose Cotransporter 2 InhibitorStart: 05-23-2024 End: 99-54-6395wxjt 1 tablet by mouth once dailyempagliflozin (Jardiance) 25 MG Indications: Type 2 diabetes mellitus with hyperglycemia, without long-term current use of insulin ([facility]) TAKE 1 TABLET BY MOUTH EVERY DAY 30 tablet 5 06/03/2024 Activefamotidine 40 mg oral tablet (20 sources)Histamine-2 Receptor AntagonistStart: 82-78-9777wqxo 1 tablet by mouth once dailyfamotidine (Pepcid) 40 MG tablet Indications: Gastroesophageal reflux disease without esophagitis TAKE 1 TABLET BY MOUTH EVERY DAY 90 tablet 3 05/07/2024 Activefluticasone propionate 0.05 mg/actuat metered dose nasal spray (20 sources)CorticosteroidStart: 21-65-5213dydf 2 spray(s) nasal route once dailyfluticasone (Flonase) 50 MCG/ACT nasal spray Indications: Upper respiratory tract infection, unspecified type Administer 2 sprays into each nostril Daily Shake gently. Before first use, prime pump. After use, clean tip and replace cap. 05/27/2024 ActiveStart: 45-35-5182mocr 1 spray(s) nasal route once daily fluticasone (Flonase) 50 MCG/ACT nasal spray Indications: Upper respiratory tract infection, unspecified type SPRAY 1 SPRAY INTO EACH NOSTRIL DAILY 16 mL 2 10/31/2022 ActiveStart: 26-78-3453Snsgxsymqou Furoate Active 2 INH INHALATION Daily June 24, 2021 4:16amtake 2 spray(s) nasal route once as needed for rhinitisfluticasone propionate (FLONASE) 50 mcg/actuation nasal spray Administer 2 sprays into each nostrilas needed for rhinitis (both nostrils q24 prn). Activefurosemide 20 mg oral tablet (20 sources)Loop DiureticStart: 16-68-5731nllp 1 tablet by mouth once daily furosemide (Lasix) 20 MG tablet Indications: Chronic diastolic heart failure (HCC) Take 1 tablet (20 mg) by mouth Daily 90 tablet 3 11/12/2023 ActiveStart: 06-24-2021 End: 94-59-3273wamk 40 mg by mouth once dailyFurosemide Active 40 MG PO Daily June 24, 2021 4:16am1 ml heparin sodium, porcine 5000 unt/ml injection (5 sources)Unfractionated Heparin, Anti-coagulantStart: 11-28-2024 End: 06-38-1977cshwts 1 mL by subcutaneous injection every eight hoursheparin sodium,porcine (heparin, porcine,) 5,000 unit/mL injection Inject 1 mL (5,000 Units total) under the skin every 8 (eight) hours for 28 days. 12/01/2024 12/29/2024 ActivehydrALAZINE hydrochloride 100 mg oral tablet (20 sources)Arteriolar VasodilatorStart: 68-12-9613usbfAHFZPBX (APRESOLINE) 100 mg tablet Take 0.5 tablets (50 mg total) by mouth at noon and 0.5 tablets (50 mg total) before bedtime. 12/01/2024 ActiveStart: 11-30-2024 End: 20-03-4507Jvekv: 11-26-2024 End: 71-21-7953Hjohg: 02-21-2024 End: 55-11-9899Hubmi: 42-20-2167cvbt 50 mg by mouth twice dailyHydralazine Active 50 MG PO Twice daily June 24, 2021 4:16amisopropyl alcohol 0.7 ml/ml medicated pad (1 source)Start: 89-04-8159Pvnzsog Swabs (Alcohol Prep) pads Indications: Type 2 diabetes mellitus with hyperglycemia, withoutlong-term current use of insulin (HCC) Use as directed 100 each 3 09/03/2024 Active3 ml liraglutide 6 mg/ml pen injector (1 source)GLP-1 Receptor AgonistStart: 36-20-1067ixpkhr 0.6 mg by subcutaneous injection once daily, then inject 1.2 mg by subcutaneous injection once daily Liraglutide (Victoza 3-Dae) 0.6 mg/0.1 mL (18 mg/3 mL) pen injector Active 1.2 MG SUBCUT Daily 6 30May 2021 10:54am 0.6mg sq daily x 1 week then 1.2 mg sq daily thereafter if well toleratedlosartan potassium 50 mg oral tablet (1 source)Angiotensin 2 Receptor BlockerStart: 25-60-4440ucin 50 mg by mouth once dailyLosartan Active 50 MG PO Daily June 24, 2021 4:16am24 hr metFORMIN hydrochloride 500 mg extended release oral tablet (1 source)BiguanideStart: 31-58-5316wflo 500 mg by mouth twice dailyMetformin Active 500 MG PO Twice daily June 24, 2021 4:16ammethocarbamol 750 mg oral tablet (17 sources)Muscle RelaxantStart: 30-36-4912aefyfingqxyuc (Robaxin) 750 MG tablet Take 750 mg by mouth in the morning and 750 mg at noon and 750 mg in the evening and 750 mg before bedtime. 12/05/2021 Activemetoclopramide 5 mg oral tablet (20 sources)Dopamine-2 Receptor AntagonistStart: 10-29-2023 End: 25-78-6541ysxg 1 tablet by mouth four times dailymetoclopramide (Reglan) 5 MG tablet Indications: Early satiety TAKE 1 TABLET BY MOUTH FOUR TIMES A DAY 120 tablet 5 10/29/2023 Activenaloxone (NARCAN) 4 mg/actuation spray,non-aerosol nasal spray (2 sources)Start: 96-45-2811hallwubw (NARCAN) 4 mg/actuation spray,non-aerosol nasal spray Administer 1 spray (4 mg total) intoalternating nostrils as needed for opioid reversal. 12/01/2024 Activenystatin 100 unt/mg topical powder (20 sources)Polyene AntifungalStart: 57-15-5224zyicubyt (Mycostatin) 802416 UNIT/GM powder Indications: Skin candidiasis Apply 1 application topically in the morning and 1 application in the evening and 1 application before bedtime. 60 g 3 11/12/2023 Active End: 53-83-7422bosalbjk (Mycostatin) 241694 UNIT/GM powder Apply 100 application topically in the morning and 100 application in the evening and 100 application before bedtime. 11/12/2023 Discontinued (Reorder)oxyCODONE hydrochloride 5 mg oral tablet (4 sources)Opioid AgonistStart: 11-26-2024 End: 16-54-0018dckpdwstucpb 40 mg delayed release oral tablet (20 sources)Proton Pump InhibitorStart: 62-61-6836sihl 1 tablet by mouth twice dailypantoprazole (ProtoNix) 40 MG EC tablet Indications: Gastroesophageal reflux disease without esophagitis TAKE 1 TABLET BY MOUTH TWICE A DAY 180 tablet 3 02/04/2024 Activesacubitril 24 mg / valsartan 26 mg oral tablet (16 sources)Angiotensin 2 Receptor BlockerStart: 05-23-2024 End: 20-99-5634vbjf 24-26 mg by mouth at bedtimesacubitril-valsartan (Entresto) 24-26 MG tablet Indications: Chronic diastolic heart failure (HCC) TAKE 1 TABLET BY MOUTH IN THE MORNING AND BEFORE BEDTIME 60 tablet 5 06/03/2024 Active SITagliptin 25 mg oral tablet (20 sources)Dipeptidyl Peptidase 4 InhibitorStart: 32-48-1448jfgf 1 tablet by mouth once dailyJanuvia 25 MG tablet Indications: Type 2 diabetes mellitus with hyperglycemia (CMS/HCC) TAKE 1 TABLET BY MOUTH EVERY DAY 90 tablet 1 09/21/2023 Activesucralfate 1000 mg oral tablet (20 sources)Aluminum ComplexStart: 27-66-4111yxnl 1 tablet by mouth once daily at bedtimesucralfate (Carafate) 1 g tablet Indications: Gastro-esophageal reflux disease without esophagitis , Esophageal reflux TAKE 1 TABLET BY MOUTH EVERYDAY AT BEDTIME 90 tablet 3 06/03/2024 ActiveStart: 60-91-9623uqgd 1 tablet by mouth once daily at bedtimesucralfate (Carafate) 1 g tablet Indications: Gastro- esophageal reflux disease without esophagitis , Esophageal reflux TAKE 1 TABLET BY MOUTH EVERYDAY AT BEDTIME 90 tablet 3 05/11/2023 Activesulfamethoxazole 800 mg / trimethoprim 160 mg oral tablet (2 sources)Dihydrofolate Reductase Inhibitor Antibacterial, Sulfonamide AntimicrobialStart: 11-12-2023 End: 08-90-7261mrsv 1 tablet by mouth once in the morningsulfamethoxazole- trimethoprim (Bactrim DS) 800-160 MG per tablet Indications: Acute UTI Take 1 tablet by mouth in the morning and at noon for 7 days 14 tablet 11/12/2023 11/19/2023 Activetemazepam 7.5 mg oral capsule (20 sources)BenzodiazepineStart: 09-03-2024 End: 35-93-7834wxuqsxhcl (Restoril) 7.5 MG capsule Indications: Primary insomnia Take 1 capsule (7.5 mg) by mouth as needed at bedtime for sleep 30 capsule 09/03/2024 10/03/2024 ActiveStart: 09-20-2023 End: 24-46-2315ysnw 1 capsule by mouth once daily at bedtimetemazepam (Restoril) 15 MG capsule Indications: Primary insomnia TAKE 1 CAPSULE BY MOUTH EVERYDAY AT BEDTIME 30 capsule 1 03/26/2024 09/03/2024 Discontinued (Reorder)Start: 93-66-2251szow 30 mg by mouth at bedtimeTemazepam Active 30 MG PO Bedtime June 24, 2021 4:16amticagrelor 90 mg oral tablet (1 source)Start: 45-49-4324cryq 1 tablet by mouth twice dailyTicagrelor (Brilinta) 90 mg Tablet Active 90 MG PO Twice daily 180 90 June 24, 2021 4:10pm zinc oxide 0.3 mg/mg topical ointment (2 sources)Start: 14-75-6165Csid Oxide (Pinxav) 30 % ointment Indications: Skin breakdown Apply 1 Application topically if needed (Skin breakdown) 113.4 g 2 03/20/2024 Active (2 sources)Start: 12-01-2024 Completed/Discontinued Medications MedicationDrug Class(es)DatesSig (Normalized)Sig (Original)ALPRAZolam 0.25 mg oral tablet (20 sources)BenzodiazepineStart: 11-26-2024 End: 64-16-5282Hzbfa: 23-04-0593tyxg 1 tablet by mouth three times daily as neededALPRAZolam (Xanax) 0.5 MG tablet Indications: Generalized anxiety disorder (CMS/HCC) TAKE 1 TABLET BY MOUTH THREE TIMES A DAY NEEDED 90 tablet 10/04/2023 ActiveStart: 19-44-7562hvhr 0.5 mg by mouth three times daily Alprazolam Active 0.5 MG PO Three times daily June 24, 2021 4:16amaprepitant 40 mg oral capsule (1 source)Substance P/Neurokinin-1 Receptor AntagonistStart: 11-27-2024 End: 83-02-3502rhdydstzcmyu 40 mg oral tablet (20 sources)HMG-CoA Reductase InhibitorStart: 11-27-2024 End: 00-12-7745Soayh: 54-52-6664peud 1 tablet by mouth once daily at bedtime atorvastatin (Lipitor) 80 MG tablet Indications: Dyslipidemia TAKE 1 TABLET BY MOUTH EVERYDAY AT BEDTIME 90 tablet 3 06/03/2024 ActiveStart: 06-24-2021 End: 14-53-6320buqc 40 mg by mouth at bedtimeAtorvastatin Discontinued 40 MG PO Bedtime June 24, 2021 4:16am June 25, 2021 11:27am24 hr buPROPion hydrochloride 150 mg extended release oral tablet (20 sources)AminoketoneStart: 06-24-2021 End: 13-00-4922rqes 1 tablet by mouth every twenty-four hours in the morning buPROPion XL (WELLBUTRIN XL) 150 mg 24 hr tablet Take 1 tablet (150 mg total) by mouth in the morning. Activecarvedilol 25 mg oral tablet (20 sources)alpha-Adrenergic Tung, beta-Adrenergic BlockerStart: 12-01-2024 End: 56-94-8251Naabx: 11-27-2024 End: 24-61-2595Amlzx: 57-23-5675dvly 1 tablet by mouth in the morningcarvedilol (Coreg) 25 MG tablet Indications: Benign essential hypertension Take 1 tablet (25 mg) bymouth in the morning and 1 tablet (25 mg) in the evening. Take with meals. 60 tablet 5 03/31/2024 ActiveStart: 51-60-7087tuzi 12.5 mg by mouth twice daily at mealtimeCarvedilol Active 12.5 MG PO Twice daily with meals 60 30 June 24, 2021 4:10pmceFAZolin (ANCEF) 2,000 mg in sodium chloride 0.9 % 50 mL IVPB W/ADAPTER (1 source)Start: 11-27-2024 End: 42-75-4196jiik 2000 mg intravenously every eight hoursclopidogrel 75 mg oral tablet (13 sources)P2Y12 Platelet InhibitorStart: 06-02-2022 End: 86-07-0648mixr 1 tablet by mouth in the morningclopidogrel (Plavix) 75 MG tablet Take 1 tablet by mouth in the morning. 06/02/2022 02/29/2024 Discontinued Continuous Glucose Power Mule Operator (Dexcom G7 Power Mule Operator) device (9 sources)Start: 02-29-2024 End: 69-36-2260Bducwpyjfo Glucose Power Mule Operator (Dexcom G7 Power Mule Operator) device Indications: Type 2 diabetes mellitus with hyperglycemia, without long-term current use of insulin ([facility]) 1 each continuously 1 each 02/29/2024 05/27/2024 DiscontinuedStart: 15-28-9583Fobqwkyxcw Glucose Power Mule Operator (Dexcom G7 Power Mule Operator) device Indications: Type 2 diabetes mellitus with hyperglycemia, without long-term current use of insulin ([facility]) 1 each continuously 1 each 02/29/2024 ActiveContinuous Glucose Sensor (Dexcom G7 Sensor) misc (9 sources)Start: 02-29-2024 End: 05-90-7447Ffcxqqhqvw Glucose Sensor (Dexcom G7 Sensor) misc Indications: Type 2 diabetes mellitus with hyperglycemia, without long-term current use of insulin ([facility]) 1 each continuously 1 each 11 DiscontinuedStart: 19-90-1484Bbaqoahmrf Glucose Sensor (Dexcom G7 Sensor) misc Indications: Type 2 diabetes mellitus with hyperglycemia, without long-term current use of insulin ([facility] [facility]) 1 each continuously 1 each 11 5Active ergocalciferol 1.25 mg oral capsule (1 source)Provitamin D2 CompoundStart: 11-28-2024 End: ml fentaNYL 0.05 mg/ml injection (2 sources)Opioid AgonistStart: 11-26-2024 End: 94-98-1716ocmxrRYLC 10 mg oral tablet (1 source)SulfonylureaStart: 06-24-2021 End: 16-71-1811xlvc 10 mg by mouth once dailyGlipizide Discontinued 10 MG PO Daily June 24, 2021 4:16am June 25, 2021 11:27amglucagon (rdna) 1 mg injection (2 sources)Antihypoglycemic AgentStart: 11-26-2024 End: 72-39-1472994 ml glucose 50 mg/ml injection (6 sources)Start: 11-26-2024 End: 00-76-9159Adfns: 11-26-2024 End: 04-78-4618Yqsjb: 11-26-2024 End: .5 ml HYDROmorphone hydrochloride 1 mg/ml prefilled syringe (1 source)Opioid AgonistStart: 11-26-2024 End: 35-64-2937gzof 0.25 mg intravenously every two hours as needed3 ml insulin lispro 100 unt/ml pen injector (19 sources)Insulin AnalogStart: 11-26-2024 End: 40-47-9397Szxzq: 05-23-2024 End: 51-45-6663pcdhfwa lispro (HumaLOG) 100 UNIT/ML injection Indications: Type 2 diabetes mellitus with hyperglycemia, without long-term current use of insulin (HCC) INJECT 2-10 UNITS UNDER THE SKIN IN THE MORNINGAND 2-10 UNITS AT NOON AND 2-10 UNITS IN THE EVENING. INJECT WITH MEALS. 151-200=2 UNITS, [phone], 251-300=6 UNITS, 301-350=8 UNITS, 351-400=10 UNITS, OVER 400 CALL PROVIDER. 15 each 3 06/03/2024 Oyzxyl52 hr isosorbide mononitrate 30 mg extended release oral tablet (20 sources)Nitrate VasodilatorStart: 12-01-2024 End: 07-64-5955Rtlcq: 05-23-2024 End: 48-72-0039qrhm 1 tablet by mouth once dailyisosorbide mononitrate ER (Imdur) 30 MG 24 hr tablet Indications: Chronic diastolic heart failure (HCC) TAKE 1 TABLET BY MOUTH EVERY DAY *DO NOT CRUSH OR CHEW* 30 tablet 5 06/03/2024 Active4 ml labetalol hydrochloride 5 mg/ml cartridge (2 sources)beta-Adrenergic BlockerStart: 11-30-2024 End: 88-40-4870umslsfdhjga 10 mg oral tablet (20 sources)Leukotriene Receptor AntagonistStart: 06-24-2021 End: 72-23-8524ktmadvrlltqqg 0.4 mg sublingual tablet (20 sources)Nitrate VasodilatorStart: 65-38-0492Nqtqemmwscpbq 0.4 MG Sublingual Tablet Sublingual DISSOLVE 1 TABLET UNDER TONGUE NEEDED CHEST PAIN. MAY REPEAT EVERY 5 MINUTES IF NEEDED, AFTER 3RD DOSE CALL 911 Quantity: 1 Refills: 3 Ordered: 21-Oct-2021 Zafar Bolivar DO Start : 21-Oct-2021 Active2 ml ondansetron 2 mg/ml injection (20 sources)Serotonin-3 Receptor AntagonistStart: 11-26-2024 End: 77-13-4900tqea 4 mg intravenously every four hours as needed for nausea Start: 19-92-2458tytlykrhpbt ODT (Zofran-ODT) 4 MG disintegrating tablet Indications: Nausea DISSOLVE 1 TABLET ON THE TONGUE EVERY 6 HOURS NEEDED FOR NAUSEA/ VOMITING 56 tablet 2 02/21/2023 ActiveStart: 15-87-5618zkkf 4 mg by mouth every six hoursOndansetron Active 4 MG PO Q6H June 24, 2021 4:16am PARoxetine hydrochloride 20 mg oral tablet (20 sources)Serotonin Reuptake InhibitorStart: 11-30-2024 End: 44-00-9297Wjkou: 44-38-2977gyqa 1 tablet by mouth in the morningPARoxetine (PAXIL) 40 mg tablet Take 1 tablet (40 mg total) by mouth in the morning. 05/17/2024 ActiveStart: 25-00-8435fqhq 1 tablet by mouth once dailyPARoxetine (Paxil) 40 MG tablet Indications: Major depressive disorder, recurrent episode, mild (HCC) (CMS/HCC) TAKE 1 TABLET BY MOUTH EVERY DAY 90 tablet 3 11/08/2023 ActiveStart: 38-52-1414zjvw 40 mg by mouth once dailyParoxetine Hcl Active 40 MG PO Daily June 24, 2021 4:16ampolyethylene glycol 3350 82210 mg powder for oral solution (5 sources)Osmotic LaxativeStart: 11-29-2024 End: 31-79-6202286 ml sodium chloride 9 mg/ml prefilled syringe (2 sources)Start: 11-28-2024 End: 96-28-4095Puprk: 11-26-2024 End: 92-59-3799redirdfpwm acid 650 mg oral tablet (1 source)Antifibrinolytic AgentStart: 11-27-2024 End: 11-27-2024 (1 source)Start: 11-30-2024 End: 12-01-2024 (1 source)Start: 11-28-2024 End: 11-28-2024 Problems Active Problems Problem ClassificationProblemDateDocumented DateEpisodic/ChronicAbdominal hernia (1 source)Diaphragmatic hernia without obstruction or gangrene; Translations: [DIAPH HERNIA W/O OBST/GANGRENE]Onset: 66-50-3714HmaqbnztSfxkq and unspecified renal failure (1 source)Acute kidney failure, unspecified; Translations: [ACUTE KIDNEY FAILURE UNSPECIFIED]Onset: 60-84-6107LackadirVncne myocardial infarction (2 sources)Myocardial infarction; Translations: [Non-ST elevation (NSTEMI) myocardial infarction]07-63-8667YehvimvNulqxee disorders (20 sources)Anxiety disorder, unspecified; Translations: [Generalized anxiety disorder]Onset: 076330-66-6750StektobYznqymddz infection; unspecified site (2 sources)Enterococcus as the cause of diseases classified elsewhere; Translations: [Klebsiella pneumoniae [K. pneumoniae] as the cause of diseases classified elsewhere]Onset: 07-77-3949RewzpbpvIrobhol kidney disease (20 sources)Chronic kidney disease; Translations: [Chronic kidney disease, unspecified]Onset: 914427-46-2958IxcaulyDecqjbl kidney disease (6 sources)Chronic kidney disease; Translations: [CHRONIC KIDNEY DISEASE STAGE 3B]Onset: 22-40-4775Lsfqpliupn heart failure; nonhypertensive (20 sources)Chronic diastolic (congestive) heart failure; Translations: [Chronic diastolic heart failure]Onset: 53-03-1747FralcbnTqvmxkew atherosclerosis and other heart disease (20 sources)Coronary arteriosclerosis; Translations: [Atherosclerotic heart disease of [place] coronary artery without angina pectoris]Onset: 06-24-2021 34-78-0922OldyjzgSqxzbxpw atherosclerosis and other heart disease (5 sources)Patient post percutaneous transluminal coronary angioplasty; Translations: [Percutaneous transluminal coronary angioplasty status]Onset: 84-88-0224IddoviwcCgtyhkjk mellitus with complications (20 sources)Type 2 diabetes mellitus with diabetic chronic kidney disease; Translations: [Type 2 diabetes mellitus with hyperglycemia]Onset: 12-01-2021 ChronicDiabetes mellitus without complication (11 sources)Diabetes mellitus; Translations: [Type 2 diabetes mellitus without complications]Onset: 750801-20-0912HpdrpgvCnykrztwu of lipid metabolism (20 sources)Pure hypercholesterolemia, unspecified; Translations: [Hyperlipidemia, unspecified]Onset: 631943-78-3014QkpvyygD Codes: Fall (2 sources)FallOnset: 29-02-0315Crnvqukksf disorders (20 sources)Gastroesophageal reflux disease; Translations: [Gastro-esophageal reflux disease without esophagitis]Onset: 209649-89-0228AjrhgkrElzxxtnky hypertension (20 sources)Hypertensive disorder; Translations: [Essential (primary) hypertension]Onset: 928980-54-0027ZtipnwbWvihcayg of neck of femur (hip) (11 sources)Fracture of unspecified part of neck of right femur, initial encounter for closed fracture; Translations: [Closed fracture of hip]Onset: 560250-24-2917GaqergxcFwwnmlphlkqvd symptoms and ill-defined conditions (20 sources)Overflow incontinence of urine; Translations: [Overflow incontinence]Onset: 008998-62-6624BfirjgcMhbwlcixdczvf symptoms and ill- defined conditions (5 sources)Urgency of urination; Translations: [Dysuria]Onset: 05-26-2022 EpisodicHypertension with complications and secondary hypertension (2 sources)Hypertensive heart and chronic kidney disease with heart failure and stage 1 through stage 4 chronic kidney disease, or unspecified chronic kidney disease; Translations: [Hypertensive heart disease with heart failure]Onset: 97-58-4954ZtofqxwCadmllshuivhw mental health disorders (20 sources)Psychophysiologic insomnia; Translations: [Primary insomnia]Onset: 964007-13-9938XkqrbgzZsjn disorders (20 sources)Depressive disorder; Translations: [Depression]Onset: 09-01-2021 50-14-3094YndraalBftlyvy (9 sources)Candidiasis of skin and nail; Translations: [Candidiasis of skin] Onset: 319762-41-8031GmqbmzivPqvseltkouh chest pain (1 source)Chest pain; Translations: [Chest pain, unspecified]EpisodicNutritional deficiencies (20 sources)Vitamin D deficiency, unspecified; Translations: [Vitamin D deficiency]Onset: 159136-29-3254DfqmxyeQthhydait or stenosis of precerebral arteries (2 sources)Occlusion and stenosis of bilateral carotid arteries; Translations: [Occlusion and stenosis of bilateral carotid arteries]Onset: 81-86-2683Banifij Osteoarthritis (20 sources)Primary gonarthrosis, bilateral; Translations: [Bilateral primary osteoarthritis of knee]Onset: 604997-41-6427RbgupwcNqnwi acquired deformities (1 source)Other forms of scoliosis, lumbar region; Translations: [OTHER FORMS SCOLIOSIS LUMBAR REGION]Onset: 95-51-8963UpctxmwBmuop aftercare (1 source)detention (current) use of aspirin; Translations: [SENIOR CARE CURRENT USE OF ASPIRIN]Onset: 62-53-2813LgrvjskdPxlyy and ill-defined cerebrovascular disease (20 sources)Cerebrovascular disease; Translations: [Cerebrovascular disease, unspecified]Onset: 683210-57-5180NoxjrrvMoeed circulatory disease (1 source)Personal history of transient ischemic attack (TIA), and cerebral infarction without residual deficits; Translations: [PERS HX TIA AND CI NO RESID DEFICIT]Onset: 92-80-2362VufuhepiEvkok connective tissue disease (1 source)History of repair of hip joint; Translations: [Presence of unspecified artificial hip joint]28-56-0153FzpuzvvXleva connective tissue disease (2 sources)History of hemiarthroplasty of right hip; Translations: [Presence of right artificial hip joint]Onset: 180790-00-4450EwgqyupCdjcb connective tissue disease (1 source)Presence of unspecified artificial hip joint; Translations: [Presence of unspecified artificial hipjoint]Onset: 89-02-4141IsgllxlJzpxr connective tissue disease (3 sources)Fibromyalgia; Translations: [Myalgia and myositis, unspecified]Onset: 27-87-6313ByxtsnzcVxmoc connective tissue disease (1 source)Repeated falls; Translations: [REPEATED FALLS]Onset: 05-18-2022 EpisodicOther diseases of veins and lymphatics (6 sources)Vascular insufficiency; Translations: [Venous insufficiency (chronic) (peripheral)]44-40-9206SngzfydsGfkzg gastrointestinal disorders (1 source)Other constipation; Translations: [OTHER CONSTIPATION]Onset: 38-41-3710GrwwcvneJxnbb lower respiratory disease (1 source)Paroxysmal nocturnal dyspnea; Translations: [Dyspnea, unspecified] EpisodicOther nervous system disorders (1 source)Cerebral cysts; Translations: [CEREBRAL CYSTS]Onset: 29-76-6499Rgndvaf Other nervous system disorders (1 source)Other chronic pain; Translations: [OTHER CHRONIC PAIN]Onset: 31-12-3469AaeobtbZiuvw nervous system disorders (20 sources)Arachnoid cyst; Translations: [Cerebral cysts]Onset: 03-13-2023 11-73-6788BpdjthqZipqd nervous system disorders (1 source)Unsteadiness on feet; Translations: [UNSTEADINESS ON FEET]Onset: 43-44-7826ZzyhmkcfZlycg nervous system disorders (1 source)Other abnormalities of gait and mobility; Translations: [OTHER ABNORMALITIES GAIT AND MOBILITY]Onset: 00-42-1979AoutqgxsIeunl non-traumatic joint disorders (1 source)Polyarthritis, unspecified; Translations: [POLYARTHRITIS UNSPECIFIED] Onset: 67-42-7555ZingaxgEeeyq nutritional; endocrine; and metabolic disorders (1 source)Morbid (severe) obesity due to excess calories; Translations: [MORBID SEVERE OBES D/T EXCESS SVETLANA]Onset: 14-15-9045DympvwvXaznq nutritional; endocrine; and metabolic disorders (1 source)Body mass index (BMI) 32.0-32.9, adult; Translations: [BODY MASS INDEX BMI 32.0-32.9 ADULT]Onset: 18-68-3537HvureymMqeit nutritional; endocrine; and metabolic disorders (12 sources)Body mass index 30+ - obesity; Translations: [Obesity, unspecified] Onset: 760759-72-5054IymmearZgamg nutritional; endocrine; and metabolic disorders (20 sources)Obesity caused by energy imbalance; Translations: [Class 1 obesity due to excess calories with serious comorbidity and body mass index (BMI) of 33.0 to 33.9 in adult]Onset: 560782-16-4832EvykatiZxdrd nutritional; endocrine; and metabolic disorders (1 source)Body mass index (BMI) 33.0-33.9, adult; Translations: [Body mass index (BMI) 33.0-33.9, adult]Onset: 59-52-3350YeqscfrIepie upper respiratory infections (2 sources)Upper respiratory infection; Translations: [Acute upper respiratory infection, unspecified]70-12-6816YzdmelddAejjapegduua fracture (2 sources)Pathological fracture due to osteoporosis; Translations: [Age-related osteoporosis with current pathological fracture, unspecified site, subsequent encounter for fracture with routine healing]Onset: 972956-10-3838Ztlqfznm Residual codes; unclassified (1 source)Acquired absence of other specified parts of digestive tract; Translations: [ACQ ABSENCE OTH PART DIGESTV TRACT]Onset: 46-12-1651Jysoqilj Residual codes; unclassified (1 source)Acquired absence of both cervix and uterus; Translations: [ACQUIRED ABSENCE BOTH CERVIX AND UTERUS]Onset: 93-19-6655OohttjfzYzqjseeubbs; intervertebral disc disorders; other back problems (1 source)Spondylosis without myelopathy or radiculopathy, cervical region; Translations: [SPONDYLS W/O MYELO-/RADICULOP CERV]Onset: 22-65-2965Ebzmrdz Spondylosis; intervertebral disc disorders; other back problems (4 sources)Dorsalgia, unspecified; Translations: [DORSALGIA UNSPECIFIED]Onset: 06-06-6180CzphpfczOqwnqpcnpjrf (1 source)I21.4 - Non-ST elevation (NSTEMI) myocardial infarction; Translations: [I21.4 - Non-ST elevation (NSTEMI) myocardial infarction]Onset: 06-24-2021 Unclassified (1 source)CHRN KIDNEY DISEASE STG 3 UNSP; Translations: [CHRN KIDNEY DISEASE STG 3 UNSP]Onset: 41-42-2051Fehojyzkjyfw (1 source)ACUTE CANDIDIASIS VULVA AND VAGINA; Translations: [ACUTE CANDIDIASIS VULVA AND VAGINA]Onset: 05-36-2652Yfxwtnqcwgzs (1 source)CONTACT W/AND (SUSP) EXPOS COVID-19; Translations: [CONTACT W/AND (SUSP) EXPOS COVID-19]Onset: 00-99-7397Jvigjhfqfpmb (1 source)EMSOnset: 04-99-7226Tbppumlxztxx (1 source)Post-opOnset: 95-49-0486Copqznewulop (1 source)79 [facility] [place]: 11-[facility] Past or Other Problems Problem ClassificationProblemDateDocumented DateEpisodic/ChronicAbdominal pain (4 sources)Unspecified abdominal pain; Translations: [UNSPECIFIED ABDOMINAL PAIN]Onset: 25-13-1957ZkbjsaxwZtawgdjvoo and other anemia (8 sources)Iron deficiency anemia; Translations: [Iron deficiency anemia, unspecified]Onset: 500986-29-1032VlcvdihfFgfub and electrolyte disorders (20 sources)Dehydration; Translations: [Hypokalemia]Onset: 842574-92-4914 EpisodicMalaise and fatigue (10 sources)Weakness; Translations: [Asthenia]Onset: 28-37-9275UpjuilvlNbkx disorders (19 sources)Mood disorders; Translations: [F32.A - Depression, unspecified] Onset: 05-27-2024 Resolved: Nausea and vomiting (8 sources)Nausea with vomiting, unspecified; Translations: [Nausea]Onset: 13-54-3487KxvbaoniBkwlz aftercare (2 sources)Other buttermaker continuous churn (current) drug therapy; Translations: [OTH WELFARE OFFICER CURRENT DRUG THERAPY]Onset: 70-56-1805OzrvtkokZfzje aftercare (1 source)detention (current) use of oral hypoglycemic drugs; Translations: [SENIOR CARE USE ORAL HYPOGLYCEMIC DX]Onset: 29-11-1398BpeiebjdMgapk aftercare (20 sources)Long-term current use of drug therapy; Translations: [Other buttermaker continuous churn (current) drug therapy]Onset: 674689-36-5889IugywplcZsiac aftercare (1 source)termite control technician (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; Translations: [detention (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]Onset: 57-34-5844BmtfhenrLoinr circulatory disease (8 sources)History of cerebrovascular disease; Translations: [Personal history of transient ischemic attack (TIA), and cerebral infarction without residual deficits]Onset: 525319-99-4004ImhpifskGwyvz connective tissue disease (20 sources)Fibromyalgia; Translations: [Fibromyalgia]Onset: 03-13-2023 14-82-2431MozedwofSditq fractures (11 sources)Fracture of lumbar spine; Translations: [Other fracture of unspecified lumbar vertebra, subsequent encounter for fracture with routine healing]Onset: 937926-46-3315KzmblvpmGfeqi gastrointestinal disorders (1 source)Diarrhea, unspecified; Translations: [DIARRHEA UNSPECIFIED]Onset: 16-12-8745ZkuomyjkAexhm gastrointestinal disorders (20 sources)Chronic constipation; Translations: [Other constipation]Onset: 754567-24-7057EwleuvnkZjkcs injuries and conditions due to external causes (6 sources)History of fall; Translations: [History of falling]Onset: 05-14-2024 36-44-6882BozqntlxBfeow lower respiratory disease (1 source)Personal history of pneumonia (recurrent); Translations: [PERSONAL HX OF PNEUMONIA RECURRENT]Onset: 90-93-2425ExwdouvgNvvis non-traumatic joint disorders (20 sources)Pain in elbow; Translations: [Pain in left elbow]Onset: 02-29-2024 79-62-5603QcjnismfUcmgj screening for suspected conditions (not mental disorders or infectious disease) (1 source)Abnormal results of thyroid function studies; Translations: [ABNORMAL RESULTS THR FUNCTION STDY]Onset: 67-96-0410AvvspkyuWuslqiozi (except that caused by tuberculosis or sexually transmitted disease) (6 sources)Pneumonia; Translations: [Pneumonia, unspecified organism]Onset: 874285-77-9316XfykpifpFamgluvv codes; unclassified (4 sources)Early satiety; Translations: [EARLY SATIETY]Onset: 87-99-9296Ezqozjyo Urinary tract infections (20 sources)Urinary tract infection, site not specified; Translations: [Acute urinary tract infection]Onset: 08-18-2021 Resolved: 394812-54-1846Iqdehazz Results Test NameValueInterpretationReference RangeFacilityXR HIP RT 2-3 VIEWS W OR WO PELVISon 31-36-4064DW HIP RT 2-3 VIEWS W OR WO [...] by Adolfo Jessica MD on 12/10/2024 6:16 PMNormalGuernsey Memorial Hospital BEDSIDE GLUCOSEon 33-09-8052Osdyczk [Mass/Vol]280 mg/fHZype26-01VxoHilamnGuernsey Memorial HospitalComment on above:Performed By: #### B12 #### [facility] ([facility]) [address] [place] [address] VIRGlucose [Mass/Vol]200 mg/hHUxgx94-95HqsGhiwjiGuernsey Memorial HospitalComment on above:Performed By: #### B12 #### [facility] ([facility]) [address] [place] [address] VIRBedside Glucose *Place/Obtain serum glucose if >500 per glucometer.on 94-54-3880Dxkfmvc [Mass/Vol]280 mg/iBVlxn10 - 99 mg/dLCleveland ClinicInterpretation and review of laboratory resultsAbnoHaven Behavioral Hospital of PhiladelphiaGlucose [Mass/Vol]200 mg/yEGeap54 - 99 mg/dL Cleveland ClinicInterpretation and review of laboratory resultsAbnormal [facility] ErieCBC WITH AUTO DIFFERENTIALon 21-42-5235DZNEVHIHM ABSOLUTE COUNT (10*3/UL) BY AUTOMATED COUNT0.0 10*3/uLNormal 0.0-0.2ProMedica Crook HospitalComment on above:Performed By: #### B12 #### [facility] ([facility]) [address] [place] [address] VIRBASOPHILS RELATIVE PERCENT BY AUTOMATED COUNT0.6 %Normal ProMcrossbridge behavioral healtha Crook HospitalComment on above:Performed By: #### B12 #### [facility] ([facility]) [address] [place] [address] VIRCELLAVISION DIFFERENTIAL TYPEAUTOMATED DIFFERENTIALNormal ProMcrossbridge behavioral healtha Crook HospitalComment on above:Performed By: #### B12 #### [facility] ([facility]) [address] [place] [address] VIREosinophils (Bld) [#/Vol]0.4 10*3/uLNormal0.0-0.4ProMedica Crook HospitalComment on above:Performed By: #### B12 #### [facility] ([facility]) [address] [place] [address] VIREOSINOPHILS RELATIVE PERCENT BY AUTOMATED COUNT6.9 %Normal [facility] HospitalComment on above:Performed By: #### B12 #### [facility] ([facility]) [address] [place] [address] VIRErythrocyte distribution width (RBC) [Ratio]12.4 %Normal 11.5-15ProMedica Crook HospitalComment on above:Performed By: #### B12 #### [facility] ([facility]) [address] [place] [address] VIRHematocrit (Bld) [Volume fraction]23.1 %Avv23-81XcpYgptuy Crook HospitalComment on above:Performed By: #### B12 #### [facility] ([facility]) [address] [place] [address] VIRHemoglobin (Bld) [Mass/Vol]7.9 g/dLLow11.7-15.5ProMedica Crook HospitalComment on above:Performed By: #### B12 #### [facility] ([facility]) [address] [place] [address] VIRLYMPHOCYTES ABSOLUTE COUNT (10*3/UL) BY AUTOMATED COUNT0.7 10*3/uLLow1.0-3.5ProMedica [place] HospitalComment on above:Performed By: #### B12 #### [facility] ([facility]) [address] [place] [address] VIRLYMPHOCYTES RELATIVE PERCENT BY AUTOMATED COUNT12.6 %Normal [facility] [place] HospitalComment on above:Performed By: #### B12 #### [facility] ([facility]) [address] [place] [address] VIRMCH (RBC) [Entitic mass]32.9 nsRugzwt71-76TpxTzvkui [place] HospitalComment on above:Performed By: #### B12 #### [facility] ([facility]) [address] [place] [address] VIRMCHC (RBC) [Mass/Vol]34.0 g/gJQzwzcn14-33TxlChfzqm [place] HospitalComment on above:Performed By: #### B12 #### [facility] ([facility]) [address] [place] [address] VIRMCV (RBC) [Entitic vol]97 tFUpfshv85-996WvyCsmgsy [place] HospitalComment on above:Performed By: #### B12 #### [facility] ([facility]) [address] [place] [address] VIRMONOCYTES ABSOLUTE COUNT (10*3/UL) BY AUTOMATED COUNT0.7 10*3/uLNormal0.0-0.9Pro[facility]ica [place] HospitalComment on above:Performed By: #### B12 #### [facility] ([facility]) [address] [place] [address] VIRMONOCYTES RELATIVE PERCENT BY AUTOMATED COUNT12.2 %Normal [facility] [place] HospitalComment on above:Performed By: #### B12 #### [facility] ([facility]) [address] [place] [address] VIRNEUTROPHILS ABSOLUTE COUNT BY AUTOMATED COUNT4.0 10*3/uL Normal1.5-6.6ProAccess Hospital DaytonComment on above:Performed By: #### B12 #### [facility] ([facility]) [address] [place] [address] VIRNEUTROPHILS RELATIVE PERCENT BY AUTOMATED COUNT67.7 %Normal ProMOhio Valley Surgical Hospital HospitalComment on above:Performed By: #### B12 #### [facility] ([facility]) [address] [place] [address] VIRPlatelet mean volume (Bld) [Entitic vol]9.2 fLNormal7-12 [facility] HospitalComment on above:Performed By: #### B12 #### [facility] ([facility]) [address] [place] [address] VIRPlatelets (Bld) [#/Vol]143 10*3/tGRwo658-575DukJouorl [place]edo HospitalComment on above:Performed By: #### B12 #### [facility] ([facility]) [address] [place] [address] VIRRBC COUNT2.39 X10E12/LLow3.8-5.2PWyandot Memorial Hospital Comment on above:Performed By: #### B12 #### [facility] ([facility]) [address] [place] [address] VIRWBC (Bld) [#/Vol]5.9 10*3/uLNormal4-11ProOhiohealth [facility] Hospital HospitalComment on above:Performed By: #### B12 #### [facility] ([facility]) [address] [address] [place] [address] VIRCBC auto differentialon [id number] (Bld) [#/Vol]0 10*3/uL0.0 - 0.2 10*3/uLCleveland ClinicBasophils/100 WBC (Bld)0.6 % [facility] ClinicDifferential cell count method Nom (Bld)AUTOMATED DIFFERENTIALCleveland ClinicEosinophils (Bld) [#/Vol]0.4 10*3/uL0.0 - 0.4 10*3/uLCleveland ClinicEosinophils/100 WBC (Bld)6.9 %C[facility] ClinicErythrocyte distribution width (RBC) [Ratio]12.4 %11.5 - 15 %[facility] ClinicHematocrit (Bld) [Volume fraction]23.1 %Low35 - 47 %[facility] ClinicHemoglobin (Bld) [Mass/Vol]7.9 g/dLLow11.7 - 15.5 g/dLCleveland ClinicInterpretation and review of laboratory resultsAbnormalCleveland ClinicLymphocytes (Bld) [#/Vol]0.7 10*3/uLLow1.0 - 3.5 10*3/uLCleveland ClinicLymphocytes/100 WBC (Bld)12.6 %[facility] ClinicMCH (RBC) [Entitic mass]32.9 pg27 - 34 [facility] HospitalMCHC (RBC) [Mass/Vol]34 g/dL32 - 36 g/dLCleveland ClinicMCV (RBC) [Entitic vol]97 fL80 - 100 fL [facility] ClinicMonocytes (Bld) [#/Vol]0.7 10*3/uL0.0 - 0.9 10*3/uL [facility] ClinicMonocytes/100 WBC (Bld)12.2 %[facility] Neutrophils (Bld) [#/Vol]4 10*3/uL1.5 - 6.6 10*3/[facility] Neutrophils/100 WBC (Bld)67.7 %[place] ClinicPlatelet mean volume (Bld) [Entitic vol]9.2 fL7 - 12 [facility] NorthlandPlatelets (Bld) [#/Vol]143 10*3/uLLake County Memorial Hospital - WestRBC (Bld) [#/Vol]2.39 10*6/uLLowCleveland ClinicWBC LM Ql (Sput)5.9[facility] COMPREHENSIVE METABOLIC PANELon [id number] [Mass/Vol]3.0 g/dLLow3.2-5.3 [facility] [place] HospitalComment on above:Performed By: #### B12 #### [facility] ([facility]) [address] [place] [address] VIRALP [Catalytic activity/Vol]71 U/PExhljn88-781UqnRqfaqk [place] HospitalComment on above:Performed By: #### B12 #### [facility] ([facility]) [address] [place] [address] VIRALT [Catalytic activity/Vol]12 U/LNormal<=31[facility] [place] HospitalComment on above:Performed By: #### B12 #### [facility] ([facility]) [address] [place] [address] VIRAnion gap [Moles/Vol]8 mmol/LNormal5-15[facility] [place] HospitalComment on above:Performed By: #### B12 #### [facility] ([facility]) [address] [place] [address] VIRAST [Catalytic activity/Vol]14 U/LNormal<=41[facility] [place] HospitalComment on above:Performed By: #### B12 #### [facility] ([facility]) [address] [place] [address] VIRBilirubin [Mass/Vol]0.5 mg/dLNormal0.3-1.2[facility] [place] HospitalComment on above:Performed By: #### B12 #### [facility] ([facility]) [address] [place] [address] VIRCalcium [Mass/Vol]9.4 mg/dLNormal8.5-10.5Pro[facility] [place] HospitalComment on above:Performed By: #### B12 #### [facility] ([facility]) [address] [place] [address] VIRChloride [Moles/Vol]103 mmol/CQmkjpo73-642BdeLaodre [place] HospitalComment on above:Performed By: #### B12 #### [facility] ([facility]) [address] [place] [address] VIRCO2 [Moles/Vol]29 mmol/WZfnbzg76-26VyxQkvofj [facility] Comment on above:Performed By: #### B12 #### [facility] ([facility]) [address] [place] [address] VIRCreatinine [Mass/Vol]1.80 mg/dLHigh0.40-1.00ProAccess Hospital DaytonComment on above:Result Comment: METHOD TRACEABLE TO IDMS STANDARD Performed By: #### B12 #### [facility] ([facility]) [address] [place] [address] VIRGFR/1.73 sq M.predicted among non-blacks MDRD (S/P/Bld) [Vol rate/Area]29 mL/min/{1.73_m2}Low>=60ProAccess Hospital DaytonComment on above: Result Comment: Reported eGFR is based on the CKD-EPI 2020 equation that does not use a race coefficient.Performed By: #### B12 #### [facility] ([facility]) [address] [place] [address] VIRGlucose [Mass/Vol]207 mg/vFUmjl12-74SaqXpsgsf [place] HospitalComment on above:Performed By: #### B12 #### [facility] ([facility]) [address] [place] [address] VIRPotassium [Moles/Vol]4.6 mmol/LNormal3.5-5.0ProAccess Hospital DaytonComment on above:Performed By: #### B12 #### [facility] ([facility]) [address] [place] [address] VIRProtein [Mass/Vol]5.4 g/dLLow6.0-8.0ProAccess Hospital DaytonComment on above:Performed By: #### B12 #### [facility] ([facility]) [address] [place] [address] VIRSodium [Moles/Vol]140 mmol/QWltwdl932-797PlcGqvlvu [place] HospitalComment on above:Performed By: #### B12 #### [facility] ([facility]) [address] [place] [address] VIRUrea nitrogen [Mass/Vol]44 mg/dLHigh5-27ProAccess Hospital DaytonComment on above:Performed By: #### B12 #### [facility] ([facility]) [address] [place] [address] VIRComprehensive metabolic panelon [id number] [Mass/Vol] 3 g/dLLow3.2 - 5.3 g/dLProMizell Memorial Hospital Health SystemALP [Catalytic activity/Vol]71 U/L 39 - 130 U/LProMedica Health SystemALT No additional P-5'-P [Catalytic activity/Vol]12 U/LNINF - 31 U/LProMedica Health SystemAnion gap [Moles/Vol]8 mmol/L5 - 15 mmol/LProMedica Health SystemAST [Catalytic activity/Vol]14 U/LNINF - 41 U/LProMedica Health SystemBilirubin [Mass/Vol]0.5 mg/dL0.3 - 1.2 mg/dL [facility] SystemCalcium [Mass/Vol]9.4 mg/dL8.5 - 10.5 mg/dLProPeoples Hospital SystemChloride [Moles/Vol]103 mmol/L98 - 109 mmol/LProMedica Health SystemCO2 [Moles/Vol]29 mmol/L22 - 32 mmol/LPrOzarks Medical Centerica Health SystemCreatinine [Mass/Vol]1.8 mg/dLHigh0.40 - 1.00 mg/dLProPeoples Hospital SystemEGFR Non-Race Alcadikev78Bpo- PINFPUniversity [facility]als [facility] SystemGlucose [Mass/Vol]207 mg/mPCqhj29 - 99 mg/dLProPeoples Hospital SystemInterpretation and review of laboratory results AbnormalProPeoples Hospital SystemPotassium [Moles/Vol]4.6 mmol/L3.5 - 5.0 mmol/L [facility] SystemProtein [Mass/Vol]5.4 g/dLLow6.0 - 8.0 g/dLProPeoples Hospital SystemSodium [Moles/Vol]140 mmol/L134 - 146 mmol/LProMedica [facility] System Urea nitrogen [Mass/Vol]44 mg/dLHigh5 - 27 mg/dLProPeoples Hospital SystemMAGNESIUM on 95-71-1576Cruqbpslf [Mass/Vol]2.1 mg/dLNormal1.8-2.6[facility] Comment on above:Performed By: #### B12 #### [facility] ([facility]) [address] [place] [address] VIRMagnesiumon 32-11-4172Jqrrtdqybchoms and review of laboratory resultsNormalProPeoples Hospital SystemMagnesium [Mass/Vol]2.1 mg/dL1.8 - 2.6 mg/dLOhioHealth Doctors Hospital SystemNo Panel Informationon [id number] Health SystemBEDSIDE GLUCOSEon 88-85-3688Spxykmw [Mass/Vol]250 mg/qCDdyu25-82 [facility] HospitalComment on above:Performed By: #### B12 #### [facility] ([facility]) [address] [place] [address] VIRGlucose [Mass/Vol]287 mg/kJYbzy33-64LlgZbnqwwAccess Hospital DaytonComment on above:Performed By: #### CPK #### [facility] ([facility]) [address] [place] [address] VIRGlucose [Mass/Vol]274 mg/xOIhnp23-03CwfXyviyrAccess Hospital DaytonComment on above:Performed By: #### CPK #### [facility] ([facility]) [address] [place] [address] VIRGlucose [Mass/Vol]199 mg/vULfts31-26OizOondusGuernsey Memorial HospitalComment on above:Performed By: #### CPK #### [facility] ([facility]) [address] [place] [address] VIRBedside Glucose *Place/Obtain serum glucose if >500 per glucometer.on 62-17-9136Wgsedvj [Mass/Vol]250 mg/tWJgby20 - 99 mg/dLOhioHealth Doctors Hospital SystemInterpretation and review of laboratory resultsAbnormalEncompass Health Rehabilitation Hospital of ErieGlucose [Mass/Vol]287 mg/mUOsbb98 - 99 mg/dL [facility] SystemInterpretation and review of laboratory resultsAbnormal [facility] ErieGlucose [Mass/Vol]274 mg/bZRmuh74 - 99 mg/dLOhioHealth Doctors Hospital SystemInterpretation and review of laboratory results AbnormalEncompass Health Rehabilitation Hospital of ErieGlucose [Mass/Vol]199 mg/cVHafk87 - 99 mg/dLOhioHealth Doctors Hospital SystemInterpretation and review of laboratory resultsAbnoHaven Behavioral Hospital of PhiladelphiaCBC WITH AUTO DIFFERENTIALon [id number] ABSOLUTE COUNT (10*3/UL) BY AUTOMATED COUNT0.0 10*3/uLNormal0.0-0.2PMemorial Health System [facility] on above:Result Comment: This is an appended report. These results have been appended to a previously preliminary verified report.Performed By: #### CPK #### [facility] ([facility]) [address] [place] [address] VIRBASOPHILS RELATIVE PERCENT BY AUTOMATED COUNT0.3 %Normal [facility] Memorial HospitalComselect specialty hospital on above:Result Comment: This is an appended report. These results have been appended to a previously preliminary verified report.Performed By: #### CPK #### [facility] ([facility]) [address] [place] [address] VIRCELLAVISION DIFFERENTIAL TYPEAUTOMATED DIFFERENTIALNoal [facility] HospitalComselect specialty hospital on above:Result Comment: This is an appended report. These results have been appended to a previously preliminary verified report.Performed By: #### CPK #### [facility] ([facility]) [address] [place] [address] VIREosinophils (Bld) [#/Vol]0.3 10*3/uLNormal0.0-0.4ProOhiohealth Berger Hospital HospitalComment on above:Result Comment: This is an appended report. These results have been appended to a previously preliminary verified report. Performed By: #### CPK #### [facility] ([facility]) [address] [place] [address] VIREOSINOPHILS RELATIVE PERCENT BY AUTOMATED COUNT3.8 %Normal ProMOhio Valley Surgical Hospital HospitalComment on above:Result Comment: This is an appended report. These results have been appended to a previously preliminary verified report.Performed By: #### CPK #### [facility] ([facility]) [address] [place] [address] VIRErythrocyte distribution width (RBC) [Ratio]12.4 %Normal 11.5-15ProOhiohealth Berger Hospital HospitalComment on above:Performed By: #### CPK #### [facility] ([facility]) [address] [place] [address] VIRHematocrit (Bld) [Volume fraction]24.7 %Uzt79-01LwsLcimmt [place] HospitalComment on above:Performed By: #### CPK #### [facility] ([facility]) [address] [place] [address] VIRHemoglobin (Bld) [Mass/Vol]8.5 g/dLLow11.7-15.5PMercy Health [facility] HospitalComment on above:Performed By: #### CPK #### [facility] ([facility]) [address] [place] [address] VIRLYMPHOCYTES ABSOLUTE COUNT (10*3/UL) BY AUTOMATED COUNT0.5 10*3/uLLow1.0-3.5PMercy Health [facility] Hospital HospitalComment on above:Result Comment: This is an appended report. These results have been appended to a previously prelimi nary verified report.Performed By: #### CPK #### [facility] ([facility]) [address] [place] [address] VIRLYMPHOCYTES RELATIVE PERCENT BY AUTOMATED COUNT5.6 %Normal ProMMorrow County HospitalComment on above:Result Comment: This is an appended report. These results have been appended to a previously preliminary verified report.Performed By: #### CPK #### [facility] ([facility]) [address] [place] [address] VIRMCH (RBC) [Entitic mass]33.6 doQclyjj42-15SvnBtngvr [place] HospitalComment on above:Performed By: #### CPK #### [facility] ([facility]) [address] [place] [address] VIRMCHC (RBC) [Mass/Vol]34.4 g/mOXwhgkt15-46CzrJsavyn [place] HospitalComment on above:Performed By: #### CPK #### [facility] ([facility]) [address] [place] [address] VIRMCV (RBC) [Entitic vol]98 nEBmpveg19-127TykJpghxr [place] HospitalComment on above:Performed By: #### CPK #### [facility] ([facility]) [address] [place] [address] VIRMONOCYTES ABSOLUTE COUNT (10*3/UL) BY AUTOMATED COUNT0.8 10*3/uLNormal0.0-0.9[facility] HospitalComselect specialty hospital on above:Result Comment: This is an appended report. These results have been appended to a previously preliminary verified report.Performed By: #### CPK #### [facility] ([facility]) [address] [place] [address] VIRMONOCYTES RELATIVE PERCENT BY AUTOMATED COUNT9.9 %Normal ProMMorrow County HospitalComment on above:Result Comment: This is an appended report. These results have been appended to a previously preliminary verified report.Performed By: #### CPK #### [facility] ([facility]) [address] [place] [address] VIRNEUTROPHILS ABSOLUTE COUNT BY AUTOMATED COUNT6.5 10*3/uL Normal1.5-6.6[facility] Memorial HospitalComment on above:Result Comment: This is an appended report. These results have been appended to a previously preliminary verified report.Performed By: #### CPK #### [facility] ([facility]) [address] [place] [address] VIRNEUTROPHILS RELATIVE PERCENT BY AUTOMATED COUNT80.4 %Normal [facility] HospitalComment on above:Result Comment: This is an appended report. These results have been appended to a previously preliminary verified report.Performed By: #### CPK #### [facility] ([facility]) [address] [place] [address] VIRPlatelet mean volume (Bld) [Entitic vol]9.8 fLNormal7-12 [facility] HospitalComment on above:Performed By: #### CPK #### [facility] ([facility]) [address] [place] [address] VIRPlatelets (Bld) [#/Vol]136 10*3/wDZbv184-066LvhGyjzzjAccess Hospital DaytonComment on above:Performed By: #### CPK #### [facility] ([facility]) [address] [place] [address] VIRRBC COUNT2.53 X10E12/LLow3.8-5.2PWyandot Memorial Hospital Comment on above:Performed By: #### CPK #### [facility] ([facility]) [address] [place] [address] VIRWBC (Bld) [#/Vol]8.1 10*3/uLNormal4-11[facility] HospitalComment on above:Performed By: #### CPK #### [facility] ([facility]) [address] [place] [address] [facility] auto differentialon [id number] (Bld) [#/Vol]0 10*3/uL0.0 - 0.2 10*3/uLCleveland ClinicBasophils/100 WBC (Bld)0.3 % [place] ClinicDifferential cell count method Nom (Bld)AUTOMATED DIFFERENTIALCleveland ClinicEosinophils (Bld) [#/Vol]0.3 10*3/uL0.0 - 0.4 10*3/uLCleveland ClinicEosinophils/100 WBC (Bld)3.8 %[place] ClinicErythrocyte distribution width (RBC) [Ratio]12.4 %11.5 - 15 %[facility] ClinicHematocrit (Bld) [Volume fraction]24.7 %Low35 - 47 %[facility] ClinicHemoglobin (Bld) [Mass/Vol]8.5 g/dLLow11.7 - 15.5 g/dLCleveland ClinicInterpretation and review of laboratory resultsAbnormalCleveland ClinicLymphocytes (Bld) [#/Vol]0.5 10*3/uLLow1.0 - 3.5 10*3/uLCleveland ClinicLymphocytes/100 WBC (Bld)5.6 %[facility] SystemH (RBC) [Entitic mass]33.6 pg27 - 34 [facility] HospitalMCHC (RBC) [Mass/Vol]34.4 g/dL32 - 36 g/dLCleveland ClinicMCV (RBC) [Entitic vol]98 fL80 - 100 fL [facility] ClinicMonocytes (Bld) [#/Vol]0.8 10*3/uL0.0 - 0.9 10*3/uL [facility] ClinicMonocytes/100 WBC (Bld)9.9 %[facility] Neutrophils (Bld) [#/Vol]6.5 10*3/uL1.5 - 6.6 10*3/uLC[facility] Neutrophils/100 WBC (Bld)80.4 %[place] ClinicPlatelet mean volume (Bld) [Entitic vol]9.8 fL7 - 12 fLPAshtabula County Medical CenterPlatelets (Bld) [#/Vol]136 10*3/uLMeeker Memorial Hospital SystemRBC (Bld) [#/Vol]2.53 10*6/[facility] HospitalWBC LM Ql (Sput)8.1PEncompass Health COMPREHENSIVE METABOLIC PANELon 80-54-3486Tcogpet [Mass/Vol]3.1 g/dLLow3.2-5.3 [facility] HospitalComment on above:Performed By: #### CPK #### [facility] ([facility]) [address] [place] [address] VIRALP [Catalytic activity/Vol]88 U/QZzyesx54-565TvbEadcrz [place]ok HospitalComment on above:Performed By: #### CPK #### [facility] ([facility]) [address] [place] [address] VIRALT [Catalytic activity/Vol]15 U/LNormal<=31[facility]MedCommunity [facility] HospitalComment on above:Performed By: #### CPK #### [facility] ([facility]) [address] [place] [address] VIRAnion gap [Moles/Vol]7 mmol/LNormal5-15ProOhiohealth Berger Hospital HospitalComment on above:Performed By: #### CPK #### [facility] ([facility]) [address] [place] [address] VIRAST [Catalytic activity/Vol]22 U/LNormal<=41[facility] HospitalComment on above:Performed By: #### CPK #### [facility] ([facility]) [address] [place] [address] VIRBilirubin [Mass/Vol]0.6 mg/dLNormal0.3-1.2PMercy Health [facility] Hospital HospitalComment on above:Performed By: #### CPK #### [facility] ([facility]) [address] [place] [address] VIRCalcium [Mass/Vol]9.5 mg/dLNormal8.5-10.5PWyandot Memorial HospitalComment on above:Performed By: #### CPK #### [facility] ([facility]) [address] [place] [address] VIRChloride [Moles/Vol]101 mmol/BYendas43-707QyzLyufnv [place] HospitalComment on above:Performed By: #### CPK #### [facility] ([facility]) [address] [place] [address] VIRCO2 [Moles/Vol]28 mmol/SYypbuz70-13ObqEftkpr [facility] Comment on above:Performed By: #### CPK #### [facility] ([facility]) [address] [place] [address] VIRCreatinine [Mass/Vol]1.86 mg/dLHigh0.40-1.00ProOhiohealth Berger Hospital HospitalComment on above:Result Comment: METHOD TRACEABLE TO IDMS STANDARD Performed By: #### CPK #### [facility] ([facility]) [address] [place] [address] VIRGFR/1.73 sq M.predicted among non-blacks MDRD (S/P/Bld) [Vol rate/Area]28 mL/min/{1.73_m2}Low>=60ProAccess Hospital DaytonComment on above: Result Comment: Reported eGFR is based on the CKD-EPI 2020 equation that does not use a race coefficient.Performed By: #### CPK #### [facility] ([facility]) [address] [place] [address] VIRGlucose [Mass/Vol]222 mg/nRKpdf83-95SrrRdspnr [place] HospitalComment on above:Performed By: #### CPK #### [facility] ([facility]) [address] [place] [address] VIRPotassium [Moles/Vol]5.0 mmol/LNormal3.5-5.0Pro[facility]ica [facility] HospitalComment on above:Performed By: #### CPK #### [facility] ([facility]) [address] [place] [address] VIRProtein [Mass/Vol]5.4 g/dLLow6.0-8.0ProAccess Hospital DaytonComment on above:Performed By: #### CPK #### [facility] ([facility]) [address] [place] [address] VIRPerformed By: #### B12 #### [facility] ([facility]) [address] [place] [address] VIRSodium [Moles/Vol]136 mmol/BNnvfry339-484WtqZwxokg [place] HospitalComment on above:Performed By: #### CPK #### [facility] ([facility]) [address] [place] [address] VIRUrea nitrogen [Mass/Vol]46 mg/dLHigh5-27ProOhiohealth Berger Hospital HospitalComment on above:Performed By: #### CPK #### [facility] ([facility]) [address] [place] [address] VIRComprehensive metabolic panelon [id number] [Mass/Vol] 3.1 g/dLLow3.2 - 5.3 g/dLProMedica Health [...] mmol/LProMedica Health SystemCO2 [Moles/Vol]28 mmol/L22 - 32 mmol/[facility] SystemCreatinine [Mass/Vol]1.86 mg/dLHigh0.40 - 1.00 mg/dLOhioHealth Doctors Hospital SystemEGFR Non-Race Hkksjpmvw85Axu- PINAvita Health System [facility] SystemGlucose [Mass/Vol]222 mg/yETbwc36 - 99 mg/dLOhioHealth Doctors Hospital SystemInterpretation and review of laboratory results AbnormalCleveland ClinicPotassium [Moles/Vol]5 mmol/L3.5 - 5.0 mmol/L ProMFederal Correction Institution Hospital SystemProtein [Mass/Vol]5.4 g/dLLow6.0 - 8.0 g/dLOhioHealth Doctors Hospital SystemSodium [Moles/Vol]136 mmol/L134 - 146 mmol/[facility] System Urea nitrogen [Mass/Vol]46 mg/dLHigh5 - 27 mg/dLCleveland Clinic IMMUNOELECTROPHORESIS FOR THERAPY MONITORINGon 67-77-4386BGGX SHERRELL/LAMBD RATIO 1.51Fexgwu3.26-1.65ProAccess Hospital DaytonComment on above:Performed By: #### B12 #### [facility] ([facility]) [address] [place] [address] VIRFREE KAPPA LT CHAINS4.92 mg/dLHigh0.33-1.94ProAccess Hospital DaytonComment on above:Performed By: #### B12 #### [facility] ([facility]) [address] [place] [address] VIRFREE LAMBDA LT CHAINS3.72 mg/dLHigh0.57-2.63ProAccess Hospital DaytonComment on above:Performed By: #### B12 #### [facility] ([facility]) [address] [place] [address] VIRIgA [Mass/Vol]169 mg/hODqysau26-707OruWxaplw [facility] Comment on above:Performed By: #### B12 #### [facility] ([facility]) [address] [place] [address] VIRIgG [Mass/Vol]685 mg/vWEpoonz047-0093WulTgoijn [place] HospitalComment on above:Performed By: #### B12 #### [facility] ([facility]) [address] [place] [address] VIRIgM [Mass/Vol]44 mg/iUYtb33-235HiuArayieAccess Hospital Dayton Comment on above:Performed By: #### B12 #### [facility] ([facility]) [address] [place] [address] VIRIMMUNUE PROFILE INTERPSee Pathology ReportNormalGuernsey Memorial HospitalComment on above:Performed By: #### B12 #### [facility] ([facility]) [address] [place] [address] VIRMAGNESIUMon 04-78-6954Wjkhkzobm [Mass/Vol]2.1 mg/dLNormal 1.8-2.6ProAccess Hospital DaytonComment on above:Performed By: #### CPK #### [facility] ([facility]) [address] [place] [address] VIRMagnesiumon 37-07-4785Hogrlwnokdklia and review of laboratory resultsNormalProKettering Health HamiltonMagnesium [Mass/Vol]2.1 mg/dL1.8 - 2.6 mg/dLCleveland ClinicNo Panel Informationon 70-77-8917IzkApvguyKettering Health HamiltonPROTEIN ELECTROPHORESIS, SERUMon 89-71-0454Aqvqdmr [Mass/Vol]2.8 g/dLLow3.4-5.3PWyandot Memorial HospitalComment on above:Performed By: #### B12 #### [facility] ([facility]) [address] [place] [address] VIRALPHA 1 GLOBULIN0.5 g/dLHigh0.1-0.4[facility] Comment on above:Performed By: #### B12 #### [facility] ([facility]) [address] [place] [address] VIRALPHA 2 GLOBULIN0.8 g/dLNormal0.4-1.1PWyandot Memorial HospitalComment on above:Performed By: #### B12 #### [facility] ([facility]) [address] [place] [address] VIRBETA GLOBULIN0.7 g/dLNormal0.5-1.2PWyandot Memorial Hospital Comment on above:Performed By: #### B12 #### [facility] ([facility]) [address] [place] [address] VIRGAMMA GLOBULIN0.6 g/dLNormal0.5-1.6Pro[facility] [place] Comment on above:Performed By: #### B12 #### [facility] ([facility]) [address] [place] [address] VIRPROTEIN ELECTROPHORESIS INTERPSee Pathology ReportNormal [facility] Memorial HospitalComment on above:Performed By: #### B12 #### [facility] ([facility]) [address] [place] [address] VIRBEDSIDE GLUCOSEon 37-03-7631Eemyvdc [Mass/Vol]236 mg/dLHigh 65-99ProOhiohealth Berger Hospital HospitalComment on above:Performed By: #### CPK #### [facility] ([facility]) [address] [place] [address] VIRGlucose [Mass/Vol]234 mg/pZOrcw38-66TyfXuwwqg [place] HospitalComment on above:Performed By: #### BMP #### [facility] ([facility]) [address] [place] [address] VIRGlucose [Mass/Vol]239 mg/eEImng97-49YupLudueg Crook HospitalComment on above:Performed By: #### BMP #### [facility] ([facility]) [address] [place] [address] VIRGlucose [Mass/Vol]201 mg/lIBuuv81-74AowQbzboz Crook HospitalComment on above:Performed By: #### BMP #### [facility] ([facility]) [address] [place] [address] VIRBedside Glucose *Place/Obtain serum glucose if >500 per glucometer.on 09-57-2498Tylxvzi [Mass/Vol]236 mg/wXNnma82 - 99 mg/dLCleveland ClinicInterpretation and review of laboratory resultsAbnoalEncompass Health Rehabilitation Hospital of ErieGlucose [Mass/Vol]234 mg/kAUcmq64 - 99 mg/dL [facility] ClinicInterpretation and review of laboratory resultsAbnormal [facility] Hospital of ErieGlucose [Mass/Vol]239 mg/rRFepo24 - 99 mg/dLOhioHealth Doctors Hospital SystemInterpretation and review of laboratory results AbnormalEncompass Health Rehabilitation Hospital of ErieGlucose [Mass/Vol]201 mg/fFBjfq11 - 99 mg/dLCleveland ClinicInterpretation and review of laboratory resultsAbnoHaven Behavioral Hospital of PhiladelphiaCBC WITH AUTO DIFFERENTIALon 69-70-3741WHTOCCPBN ABSOLUTE COUNT (10*3/UL) BY AUTOMATED COUNT0.0 10*3/uLNormal0.0-0.2PWyandot Memorial HospitalComment on above:Performed By: #### BMP #### [facility] ([facility]) [address] [place] [address] VIRBASOPHILS RELATIVE PERCENT BY AUTOMATED COUNT0.5 %Normal Guernsey Memorial HospitalComment on above:Performed By: #### BMP #### [facility] ([facility]) [address] [place] [address] VIRCELLAVISION DIFFERENTIAL TYPEAUTOMATED DIFFERENTIALNormal [facility] Memorial HospitalComment on above:Performed By: #### BMP #### [facility] ([facility]) [address] [place] [address] VIREosinophils (Bld) [#/Vol]0.4 10*3/uLNormal0.0-0.4Guernsey Memorial HospitalComment on above:Performed By: #### BMP #### [facility] ([facility]) [address] [place] [address] VIREOSINOPHILS RELATIVE PERCENT BY AUTOMATED COUNT5.8 %Normal [facility] Crook HospitalComment on above:Performed By: #### BMP #### [facility] ([facility]) [address] [place] [address] VIRErythrocyte distribution width (RBC) [Ratio]12.3 %Normal 11.5-15ProMedica Paul HospitalComment on above:Performed By: #### BMP #### [facility] ([facility]) [address] [place] [address] VIRHematocrit (Bld) [Volume fraction]24.2 %Cgp67-47AyvMoooea Paul HospitalComment on above:Performed By: #### BMP #### [facility] ([facility]) [address] [place] [address] VIRHemoglobin (Bld) [Mass/Vol]8.2 g/dLLow11.7-15.5ProMedica Crook HospitalComment on above:Performed By: #### BMP #### [facility] ([facility]) [address] [place] [address] VIRLYMPHOCYTES ABSOLUTE COUNT (10*3/UL) BY AUTOMATED COUNT0.9 10*3/uLLow1.0-3.5ProMedCommunity Regional Medical Center HospitalComment on above:Performed By: #### BMP #### [facility] ([facility]) [address] [place] [address] VIRLYMPHOCYTES RELATIVE PERCENT BY AUTOMATED COUNT12.5 %Normal [facility]ica Crook HospitalComment on above:Performed By: #### BMP #### [facility] ([facility]) [address] [place] [address] VIRMCH (RBC) [Entitic mass]32.9 ghMjmydk12-26BadXjtddu Paul HospitalComment on above:Performed By: #### BMP #### [facility] ([facility]) [address] [place] [address] VIRMCHC (RBC) [Mass/Vol]34.0 g/uVHfbkyn64-38MxvHbxigl Crook HospitalComment on above:Performed By: #### BMP #### [facility] ([facility]) [address] [place] [address] VIRMCV (RBC) [Entitic vol]97 uHBofcdy92-596AyiVypnhm Crook HospitalComment on above:Performed By: #### BMP #### [facility] ([facility]) [address] [place] [address] VIRMONOCYTES ABSOLUTE COUNT (10*3/UL) BY AUTOMATED COUNT0.8 10*3/uLNormal0.0-0.9ProOhiohealth Berger Hospital HospitalComment on above:Performed By: #### BMP #### [facility] ([facility]) [address] [place] [address] VIRMONOCYTES RELATIVE PERCENT BY AUTOMATED COUNT10.7 %Normal ProMOhio Valley Surgical Hospital HospitalComment on above:Performed By: #### BMP #### [facility] ([facility]) [address] [place] [address] VIRNEUTROPHILS ABSOLUTE COUNT BY AUTOMATED COUNT5.0 10*3/uL Normal1.5-6.6ProOhiohealth Berger Hospital HospitalComment on above:Performed By: #### BMP #### [facility] ([facility]) [address] [place] [address] VIRNEUTROPHILS RELATIVE PERCENT BY AUTOMATED COUNT70.5 %Normal ProMOhio Valley Surgical Hospital HospitalComment on above:Performed By: #### BMP #### [facility] ([facility]) [address] [place] [address] VIRPlatelet mean volume (Bld) [Entitic vol]9.5 fLNormal7-12 ProMcrossbridge behavioral healtha Crook HospitalComment on above:Performed By: #### BMP #### [facility] ([facility]) [address] [place] [address] VIRPlatelets (Bld) [#/Vol]120 10*3/eRRiq869-725PzoVigvtkAccess Hospital DaytonComment on above:Performed By: #### BMP #### [facility] ([facility]) [address] [place] [address] VIRRBC COUNT2.50 X10E12/LLow3.8-5.2PWyandot Memorial Hospital Comment on above:Performed By: #### BMP #### [facility] ([facility]) [address] [place] [address] VIRWBC (Bld) [#/Vol]7.0 10*3/uLNormal4-11Guernsey Memorial HospitalComment on above:Performed By: #### BMP #### [facility] ([facility]) [address] [place] [address] VIRCBC auto differentialon 46-19-0362Gjiqattui (Bld) [#/Vol]0 10*3/uL0.0 - 0.2 10*3/uLCleveland ClinicBasophils/100 WBC (Bld)0.5 % [facility] ClinicDifferential cell count method Nom (Bld)AUTOMATED DIFFERENTIALCleveland ClinicEosinophils (Bld) [#/Vol]0.4 10*3/uL0.0 - 0.4 10*3/uLCleveland ClinicEosinophils/100 WBC (Bld)5.8 %C[facility] ClinicErythrocyte distribution width (RBC) [Ratio]12.3 %11.5 - 15 %C[facility] ClinicHematocrit (Bld) [Volume fraction]24.2 %Low35 - 47 %C[facility] ClinicHemoglobin (Bld) [Mass/Vol]8.2 g/dLLow11.7 - 15.5 g/dLCleveland ClinicInterpretation and review of laboratory resultsAbnormalCleveland ClinicLymphocytes (Bld) [#/Vol]0.9 10*3/uLLow1.0 - 3.5 10*3/uLOhioHealth Doctors Hospital SystemLymphocytes/100 WBC (Bld)12.5 %[facility] Healthcare SystemH (RBC) [Entitic mass]32.9 pg27 - 34 pgPAshtabula County Medical CenterMCHC (RBC) [Mass/Vol]34 g/dL32 - 36 g/dLCleveland ClinicMCV (RBC) [Entitic vol]97 fL80 - 100 fL [facility] ClinicMonocytes (Bld) [#/Vol]0.8 10*3/uL0.0 - 0.9 10*3/uL [facility] ClinicMonocytes/100 WBC (Bld)10.7 %[facility] Neutrophils (Bld) [#/Vol]5 10*3/uL1.5 - 6.6 10*3/uLC[facility] Clinic Neutrophils/100 WBC (Bld)70.5 %C[facility] ClinicPlatelet mean volume (Bld) [Entitic vol]9.5 fL7 - 12 [facility] Mercy NorthlandPlatelets (Bld) [#/Vol]120 10*3/uLLowCleveland ClinicRBC (Bld) [#/Vol]2.5 10*6/[facility] HospitalWBC LM Ql (Sput)7En[facility] COMPREHENSIVE METABOLIC PANELon 07-86-5724Rfkgygf [Mass/Vol]3.1 g/dLLow3.2-5.3 [facility] Memorial HospitalComment on above:Performed By: #### BMP #### [facility] ([facility]) [address] [place] [address] VIRALP [Catalytic activity/Vol]87 U/MPewsfn86-851UmlHvtqypGuernsey Memorial HospitalComment on above:Performed By: #### BMP #### [facility] ([facility]) [address] [place] [address] VIRALT [Catalytic activity/Vol]39 U/LHigh<=31PWyandot Memorial HospitalComment on above:Performed By: #### BMP #### [facility] ([facility]) [address] [place] [address] VIRAnion gap [Moles/Vol]7 mmol/LNormal5-15ProMedica Crook HospitalComment on above:Performed By: #### BMP #### [facility] ([facility]) [address] [place] [address] VIRAST [Catalytic activity/Vol]56 U/LHigh<=41ProMedica Crook HospitalComment on above:Performed By: #### BMP #### [facility] ([facility]) [address] [place] [address] VIRBilirubin [Mass/Vol]0.4 mg/dLNormal0.3-1.2ProMedCommunity Regional Medical Center HospitalComment on above:Performed By: #### BMP #### [facility] ([facility]) [address] [place] [address] VIRCalcium [Mass/Vol]9.5 mg/dLNormal8.5-10.5ProMedCommunity Regional Medical Center HospitalComment on above:Performed By: #### BMP #### [facility] ([facility]) [address] [place] [address] VIRChloride [Moles/Vol]103 mmol/PYftyot52-833BvhByxjid [place] HospitalComment on above:Performed By: #### BMP #### [facility] ([facility]) [address] [place] [address] VIRCO2 [Moles/Vol]28 mmol/DSgznjm86-24EzwTebfrk [facility] Comment on above:Performed By: #### BMP #### [facility] ([facility]) [address] [place] [address] VIRCreatinine [Mass/Vol]2.28 mg/dLHigh0.40-1.00ProAccess Hospital DaytonComment on above:Result Comment: METHOD TRACEABLE TO IDMS STANDARD Performed By: #### BMP #### [facility] ([facility]) [address] [place] [address] VIRGFR/1.73 sq M.predicted among non-blacks MDRD (S/P/Bld) [Vol rate/Area]22 mL/min/{1.73_m2}Low>=60ProOhiohealth Berger Hospital HospitalComment on above: Result Comment: Reported eGFR is based on the CKD-EPI 2020 equation that does not use a race coefficient.Performed By: #### BMP #### [facility] ([facility]) [address] [place] [address] VIRGlucose [Mass/Vol]151 mg/eUPwpq43-02HfqJwjkrg [place] HospitalComment on above:Performed By: #### BMP #### [facility] ([facility]) [address] [place] [address] VIRPotassium [Moles/Vol]5.2 mmol/LHigh3.5-5.0ProOhiohealth Berger Hospital HospitalComment on above:Performed By: #### BMP #### [facility] ([facility]) [address] [place] [address] VIRProtein [Mass/Vol]5.5 g/dLLow6.0-8.0ProOhiohealth Berger Hospital HospitalComment on above:Performed By: #### BMP #### [facility] ([facility]) [address] [place] [address] VIRSodium [Moles/Vol]138 mmol/YRmrohi116-065TiqLmfujb [place] HospitalComment on above:Performed By: #### BMP #### [facility] ([facility]) [address] [place] [address] VIRUrea nitrogen [Mass/Vol]53 mg/dLHigh5-27ProOhiohealth Berger Hospital HospitalComment on above:Performed By: #### BMP #### [facility] ([facility]) [address] [place] [address] VIRComprehensive metabolic panelon 41-68-5676Ilzmqbg [Mass/Vol] 3.1 g/dLLow3.2 - 5.3 g/dLProProtestant Hospitalca [facility] SystemALP [Catalytic activity/Vol]87 U/L39 - 130 U/LProMedica Health SystemALT No additional P-5'-P [Catalytic activity/Vol]39 U/LHighNINF - 31 U/LProMedica Health SystemAnion gap [Moles/Vol] 7 mmol/L5 - 15 mmol/LProMedica Health SystemAST [Catalytic activity/Vol]56 U/L HighNINF - 41 U/LProMeddecatur morgan hospital Health SystemBilirubin [Mass/Vol]0.4 mg/dL0.3 - 1.2 mg/dLProMizell Memorial Hospital Health SystemCalcium [Mass/Vol]9.5 mg/dL8.5 - 10.5 mg/dLProPeoples Hospital SystemChloride [Moles/Vol]103 mmol/L98 - 109 mmol/LProMedica Health SystemCO2 [Moles/Vol]28 mmol/L22 - 32 mmol/LPrUCHealth Highlands Ranch Hospital Health SystemCreatinine [Mass/Vol]2.28 mg/dLHigh0.40 - 1.00 mg/dLOhioHealth Doctors Hospital SystemEGFR Non-Race Xqnplnqcz73Ddo- PINFPUniversity Hospitals [facility] SystemGlucose [Mass/Vol]151 mg/uVTdph92 - 99 mg/dLOhioHealth Doctors Hospital SystemInterpretation and review of laboratory results AbnormalProMizell Memorial Hospital Health SystemPotassium [Moles/Vol]5.2 mmol/LHigh3.5 - 5.0 mmol/LProMedica Health SystemProtein [Mass/Vol]5.5 g/dLLow6.0 - 8.0 g/dL ProMFederal Correction Institution Hospital SystemSodium [Moles/Vol]138 mmol/L134 - 146 mmol/LPrOzarks Medical Centerica Health SystemUrea nitrogen [Mass/Vol]53 mg/dLHigh5 - 27 mg/dLOhioHealth Doctors Hospital SystemFERRITINon 69-64-6122Jebfwgcf [Mass/Vol]76 ng/pLMnfdps89-359DmzSihbhl [place] HospitalComment on above:Performed By: #### CPK #### [facility] ([facility]) [address] [place] [address] VIRFOLATEon 11-46-7481JQOHG ACID17.9 ng/mLNormal>5.8ProAccess Hospital DaytonComment on above:Performed By: #### CPK #### [facility] ([facility]) [address] [place] [address] VIRFerritinon 73-71-7577Rftjfihq [Mass/Vol]76 ng/mL11 - 307 ng/mLOhioHealth Doctors Hospital SystemInterpretation and review of laboratory results NormalProBellin Health's Bellin Memorial Hospital SystemFolateon 13-99-0794Ijsmof [Mass/Vol]17.9 ng/mL5.8 - PINF ng/mLOhioHealth Doctors Hospital SystemInterpretation and review of laboratory resultsNormalProMediNuvance HealthProPeoples Hospital System IRON AND TIBCon 74-93-0644Akmn [Mass/Vol]12 ug/nZWqm41-300PdhRoqihsAccess Hospital DaytonComment on above:Performed By: #### BMP #### [facility] ([facility]) [address] [place] [address] VIRIRON KFFRVLU537 ug/fKTuaqlo369-242GzoDscroxGuernsey Memorial Hospital Comment on above:Performed By: #### BMP #### [facility] ([facility]) [address] [place] [address] VIRIRON SATURATION4 % TKLSZFAEYDBjz44-57XlkSzxwgk [place] HospitalComment on above:Performed By: #### BMP #### [facility] ([facility]) [address] [place] [address] VIRTransferrin [Mass/Vol]195 mg/mPHkpvlo601-430NljZugmjs [place] HospitalComment on above:Performed By: #### BMP #### [facility] ([facility]) [address] [place] [address] VIRIron and TIBCon 53-56-6624Xnxvyhhboomagv and review of laboratory resultsAbnormalOhioHealth Doctors Hospital SystemIron [Mass/Vol]12 ug/dLLow50 - 170 ug/dLProKettering Health HamiltonIron binding capacity [Mass/Vol]273 ug/dL250 - 425 ug/dLProKettering Health HamiltonIron saturation [Mass fraction]4LowProPeoples Hospital SystemTransferrin [Mass or moles/Vol]195 mg/dL168 - 336 mg/dLProMediAnMed Health Cannon SystemMAGNESIUMon 45-70-8995Umbdqpoov [Mass/Vol] 2.2 mg/dLNormal1.8-2.6ProOhiohealth Berger Hospital HospitalComment on above:Performed By: #### BMP #### [facility] ([facility]) [address] [place] [address] VIRMagnesiumon 70-05-7653Diakfrhoomzbxk and review of laboratory resultsNormalOhioHealth Doctors Hospital SystemMagnesium [Mass/Vol]2.2 mg/dL1.8 - 2.6 mg/dLOhioHealth Doctors Hospital SystemNo Panel Informationon 75-64-0268HxdPjyrlv Health SystemVITAMIN B12on 63-01-0706Ojpfmibez (Vitamin B12) [Mass/Vol]314 pg/mL Quuhzs127-244LavUlynaj [facility] Hospital - AndersonComment on above:Performed By: #### CPK #### [facility] ([facility]) [address] [place] [address] VIRVitamin B12on 81-39-1883Sjkkfdbkr (Vitamin B12) [Mass/Vol] 314 pg/mL180 - 914 pg/mLCleveland ClinicInterpretation and review of laboratory resultsNormalProPeoples Hospital SystemProPeoples Hospital SystemBEDSIDE GLUCOSEon 38-10-0553Xhflgis [Mass/Vol]223 mg/pNFcaq76-28FxaRopxnh [place] HospitalComment on above:Performed By: #### BMP #### [facility] ([facility]) [address] [place] [address] VIRGlucose [Mass/Vol]271 mg/mXHaqe58-09IyvCubtzw [place] HospitalComment on above:Performed By: #### BMP #### [facility] ([facility]) [address] [place] [address] VIRGlucose [Mass/Vol]234 mg/rBLhdc33-78AigChjrrs [place] HospitalComment on above:Performed By: #### PAB #### [facility] ([facility]) [address] [place] [address] VIRGlucose [Mass/Vol]204 mg/hIOcpx16-67AuiSzjijnGuernsey Memorial HospitalComment on above:Performed By: #### TSC #### [facility] ([facility]) [address] [place] [address] VIRBedside Glucose *Place/Obtain serum glucose if >500 per glucometer.on 42-11-2937Yzqqaeu [Mass/Vol]223 mg/rVXgpz43 - 99 mg/dLOhioHealth Doctors Hospital SystemInterpretation and review of laboratory resultsAbnormalEncompass Health Rehabilitation Hospital of ErieGlucose [Mass/Vol]271 mg/cSAsmq00 - 99 mg/dL [facility] ClinicInterpretation and review of laboratory resultsAbnormal [facility] ErieGlucose [Mass/Vol]234 mg/eCIwfv39 - 99 mg/dLCleveland ClinicInterpretation and review of laboratory results AbnormalEncompass Health Rehabilitation Hospital of ErieGlucose [Mass/Vol]204 mg/tJKacg74 - 99 mg/dLCleveland ClinicInterpretation and review of laboratory resultsAbnoHaven Behavioral Hospital of PhiladelphiaCBC WITH AUTO DIFFERENTIALon 66-16-4660SBHTFEMFM ABSOLUTE COUNT (10*3/UL) BY AUTOMATED COUNT0.0 10*3/uLNormal0.0-0.2PWyandot Memorial HospitalComment on above:Performed By: #### TSC #### [facility] ([facility]) [address] [place] [address] VIRBASOPHILS RELATIVE PERCENT BY AUTOMATED COUNT0.2 %Normal [facility] Memorial HospitalComment on above:Performed By: #### TSC #### [facility] ([facility]) [address] [place] [address] VIRCELLAVISION DIFFERENTIAL TYPEAUTOMATED DIFFERENTIALNormal [facility]sey Memorial HospitalComment on above:Performed By: #### TSC #### [facility] ([facility]) [address] [place] [address] VIREosinophils (Bld) [#/Vol]0.0 10*3/uLNormal0.0-0.4ProProtestant Hospitalca Paul HospitalComment on above:Performed By: #### TSC #### [facility] ([facility]) [address] [place] [address] VIREOSINOPHILS RELATIVE PERCENT BY AUTOMATED COUNT0.3 %Normal ProMcrossbridge behavioral healtha Crook HospitalComment on above:Performed By: #### TSC #### [facility] ([facility]) [address] [place] [address] VIRErythrocyte distribution width (RBC) [Ratio]12.6 %Normal 11.5-15ProProtestant Hospitalca Crook HospitalComment on above:Performed By: #### TSC #### [facility] ([facility]) [address] [place] [address] VIRHematocrit (Bld) [Volume fraction]28.2 %Rjc97-79KxvMqddfb Crook HospitalComment on above:Performed By: #### TSC #### [facility] ([facility]) [address] [place] [address] VIRHemoglobin (Bld) [Mass/Vol]9.3 g/dLLow11.7-15.5PMercy Health Perrysburg Hospital HospitalComment on above:Performed By: #### TSC #### [facility] ([facility]) [address] [place] [address] VIRLYMPHOCYTES ABSOLUTE COUNT (10*3/UL) BY AUTOMATED COUNT0.4 10*3/uLLow1.0-3.5PMercy Health Perrysburg Hospital HospitalComment on above:Performed By: #### TSC #### [facility] ([facility]) [address] [place] [address] VIRLYMPHOCYTES RELATIVE PERCENT BY AUTOMATED COUNT4.5 %Normal ProMOhio Valley Surgical Hospital HospitalComment on above:Performed By: #### TSC #### [facility] ([facility]) [address] [place] [address] VIRMCH (RBC) [Entitic mass]32.1 rwFbheki10-03DosYgdsey Paul HospitalComment on above:Performed By: #### TSC #### [facility] ([facility]) [address] [place] [address] VIRMCHC (RBC) [Mass/Vol]33.1 g/uTTibpmp54-64IrxPjzqfh Paul HospitalComment on above:Performed By: #### TSC #### [facility] ([facility]) [address] [place] [place] [address] VIRMCV (RBC) [Entitic vol]97 hGHctozx49-286QnxNwplto Paul HospitalComment on above:Performed By: #### TSC #### [facility] ([facility]) [address] [place] [place] [address] VIRMONOCYTES ABSOLUTE COUNT (10*3/UL) BY AUTOMATED COUNT0.8 10*3/uLNormal0.0-0.9ProProtestant Hospitalca Crook HospitalComment on above:Performed By: #### TSC #### [facility] ([facility]) [address] [place] [place] [address] VIRMONOCYTES RELATIVE PERCENT BY AUTOMATED COUNT8.3 %Normal ProMOhio Valley Surgical Hospital HospitalComment on above:Performed By: #### TSC #### [facility] ([facility]) [address] [place] [place] [address] VIRNEUTROPHILS ABSOLUTE COUNT BY AUTOMATED COUNT7.9 10*3/uLHigh 1.5-6.6ProProtestant Hospitalca Paul HospitalComment on above:Performed By: #### TSC #### [facility] ([facility]) [address] [place] [place] [address] VIRNEUTROPHILS RELATIVE PERCENT BY AUTOMATED COUNT86.7 %Normal ProMcrossbridge behavioral healtha Paul HospitalComment on above:Performed By: #### TSC #### [facility] ([facility]) [address] [facility] [place] [address] VIRPlatelet mean volume (Bld) [Entitic vol]9.0 fLNormal7-12 ProMedica Paul HospitalComment on above:Performed By: #### TSC #### [facility] ([facility]) [address] [place] [address] VIRPlatelets (Bld) [#/Vol]138 10*3/kIYas135-012LvfWzezavAccess Hospital DaytonComment on above:Performed By: #### TSC #### [facility] ([facility]) [address] [place] [address] VIRRBC COUNT2.91 X10E12/LLow3.8-5.2PWyandot Memorial Hospital Comment on above:Performed By: #### TSC #### [facility] ([facility]) [address] [place] [address] VIRWBC (Bld) [#/Vol]9.1 10*3/uLNormal4-11Guernsey Memorial HospitalComment on above:Performed By: #### TSC #### [facility] ([facility]) [address] [place] [address] VIRCBC auto differentialon 72-18-3959Utbpaglnl (Bld) [#/Vol]0 10*3/uL0.0 - 0.2 10*3/uLCleveland ClinicBasophils/100 WBC (Bld)0.2 % [facility] ClinicDifferential cell count method Nom (Bld)AUTOMATED DIFFERENTIALCleveland ClinicEosinophils (Bld) [#/Vol]0 10*3/uL0.0 - 0.4 10*3/uLCleveland ClinicEosinophils/100 WBC (Bld)0.3 %C[facility] ClinicErythrocyte distribution width (RBC) [Ratio]12.6 %11.5 - 15 %C[facility] ClinicHematocrit (Bld) [Volume fraction]28.2 %Low35 - 47 %C[facility] ClinicHemoglobin (Bld) [Mass/Vol]9.3 g/dLLow11.7 - 15.5 g/dLCleveland ClinicInterpretation and review of laboratory resultsAbnormalCleveland ClinicLymphocytes (Bld) [#/Vol]0.4 10*3/uLLow1.0 - 3.5 10*3/uLCleveland ClinicLymphocytes/100 WBC (Bld)4.5 %[facility]MC Healthcare SystemH (RBC) [Entitic mass]32.1 pg27 - 34 pgPAshtabula County Medical CenterMCHC (RBC) [Mass/Vol]33.1 g/dL32 - 36 g/dLCleveland ClinicMCV (RBC) [Entitic vol]97 fL80 - 100 fL [facility] ClinicMonocytes (Bld) [#/Vol]0.8 10*3/uL0.0 - 0.9 10*3/uL Cleveland ClinicMonocytes/100 WBC (Bld)8.3 %[facility] Neutrophils (Bld) [#/Vol]7.9 10*3/uLHigh1.5 - 6.6 10*3/uLCleveland Clinic Neutrophils/100 WBC (Bld)86.7 %C[facility] ClinicPlatelet mean volume (Bld) [Entitic vol]9 fL7 - 12 [facility] NorthlandPlatelets (Bld) [#/Vol]138 10*3/uLLowCleveland ClinicRBC (Bld) [#/Vol]2.91 10*6/uLLake County Memorial Hospital - WestWBC LM Ql (Sput)9.1PEncompass Health COMPREHENSIVE METABOLIC PANELon 91-41-2311Eguuwys [Mass/Vol]3.2 g/dLNormal 3.2-5.3PWyandot Memorial HospitalComment on above:Performed By: #### PAB #### [facility] ([facility]) [address] [place] [address] VIRALP [Catalytic activity/Vol]118 U/PIlbrjv00-876GqlGtsebmGuernsey Memorial HospitalComment on above:Performed By: #### PAB #### [facility] ([facility]) [address] [place] [address] VIRALT [Catalytic activity/Vol]339 U/LHigh<=31PWyandot Memorial HospitalComment on above:Performed By: #### PAB #### [facility] ([facility]) [address] [place] [address] VIRAnion gap [Moles/Vol]8 mmol/LNormal5-15ProMedica Paul HospitalComment on above:Performed By: #### PAB #### [facility] ([facility]) [address] [place] [address] VIRAST [Catalytic activity/Vol]261 U/LHigh<=41ProMedica Paul HospitalComment on above:Performed By: #### PAB #### [facility] ([facility]) [address] [place] [address] VIRBilirubin [Mass/Vol]0.4 mg/dLNormal0.3-1.2ProMedica Crook HospitalComment on above:Performed By: #### PAB #### [facility] ([facility]) [address] [place] [address] VIRCalcium [Mass/Vol]9.1 mg/dLNormal8.5-10.5ProMedica Crook HospitalComment on above:Performed By: #### PAB #### [facility] ([facility]) [address] [place] [address] VIRChloride [Moles/Vol]102 mmol/VBferwk08-728RsmNpirtt Crook HospitalComment on above:Performed By: #### PAB #### [facility] ([facility]) [address] [place] [address] VIRCO2 [Moles/Vol]26 mmol/PFlonze83-28KjtKsglsr [facility] Comment on above:Performed By: #### PAB #### [facility] ([facility]) [address] [place] [address] VIRCreatinine [Mass/Vol]2.45 mg/dLHigh0.40-1.00ProOhiohealth Berger Hospital HospitalComment on above:Result Comment: METHOD TRACEABLE TO IDMS STANDARD Performed By: #### PAB #### [facility] ([facility]) [address] [place] [address] VIRGFR/1.73 sq M.predicted among non-blacks MDRD (S/P/Bld) [Vol rate/Area]20 mL/min/{1.73_m2}Low>=60ProMedica Crook HospitalComment on above: Result Comment: Reported eGFR is based on the CKD-EPI 2020 equation that does not use a race coefficient.Performed By: #### PAB #### [facility] ([facility]) [address] [place] [address] VIRGlucose [Mass/Vol]207 mg/sOFkrv45-36ZguTzofzi Crook HospitalComment on above:Performed By: #### PAB #### [facility] ([facility]) [address] [place] [address] VIRPotassium [Moles/Vol]5.2 mmol/LHigh3.5-5.0ProProtestant Hospitalca Crook HospitalComment on above:Performed By: #### PAB #### [facility] ([facility]) [address] [place] [address] VIRProtein [Mass/Vol]5.7 g/dLLow6.0-8.0ProOhiohealth Berger Hospital HospitalComment on above:Performed By: #### PAB #### [facility] ([facility]) [address] [place] [address] VIRSodium [Moles/Vol]136 mmol/RBuflhg410-994WszYkkhuu [place] HospitalComment on above:Performed By: #### PAB #### [facility] ([facility]) [address] [place] [address] VIRUrea nitrogen [Mass/Vol]50 mg/dLHigh5-27ProOhiohealth Berger Hospital HospitalComment on above:Performed By: #### PAB #### [facility] ([facility]) [address] [place] [address] VIRCOMPREHENSIVE METABOLIC PANELCMP COMPREHENSIVE METABOLIC PANEL CancelledNormalProProtestant Hospitalca Crook HospitalComment on above:Order Comment: I SPOKE TO TAHMINA TORRES AT 0755AM FOR A REDRAW AND SHE SAID SOMEONE HAD ALREADY CALLED FOR A REDRAW.Cardiac echo study ProcedureOrdered By: Derrek Llanes on 43-03-9431Yicuam root3.5 [employer] Work Phone: [phone] valve Mean systole pressure gradient by US.doppler derived full Ngmasldtg2mqIrHqsCjcekg Health System Work Phone: Aortic valve Peak systolic flow by US.vbaakfw237 cm/s [employer] Work Phone: AV peak gradient6.55mmHgVermont Psychiatric Care HospitalEditas Medicine Work Phone: AV Velocity Ratio0.99[facility] HospitalEditas Medicine Work Phone: AV VTI33 [employer] Work Phone: [phone] wave deceleration fqmr200esxwHvtUmwjchForest[employer] Work Phone: E/A ratio1.31PRithmio Work Phone: [phone] loss index17.98[facility] HospitalEditas Medicine Work Phone: [phone]. RA rwxrchdj0tkFdThrCppcepFore[employer] Work Phone: [phone] %28 - 44 %[employer] Work Phone: [phone] Vena Cava Diameter2 [employer] Work Phone: [phone] Septum Diastolic Thickness by 2D11 cm [employer] Work Phone: IVC puylhdfq85 [employer] Work Phone: [phone] cm0.6 - 1.1 [employer] Work Phone: [phone] size4.1 [employer] Work Phone: [phone] .6 vh8SynEgmmtoEditas Medicine Work Phone: [phone] Volume Index51.2 mL/p6SfnJioclqEditas Medicine Work Phone: [phone] Ventricle [phone] [facility] Medical CenterLink_A_[employer] Work Phone: LV ESV Q1H127 mLVermont Psychiatric Care HospitalGenomed System Work Phone: [phone] ESV A4C94.4 mLVermont Psychiatric Care HospitalGenomed System Work Phone: [phone] RWT 6O60KbpJnekvyEditas Medicine Work Phone: [phone] cm4.42 - 6.14 [facility] Hospital - ErieRithmio Work Phone: [phone] cm2.61 - 3.96 [facility] Hospital - ErieRithmio Work Phone: LVOT peak vel1.11 m/[facility] InstituteLink_A_[employer] Work Phone: [phone] peak VTI32.8 [facility] Hospital - ErieRithmio Work Phone: MV Peak A Mfg655 cm/[employer] Work Phone: MV Peak E Kls769 cm/[employer] Work Phone: MV pressure 1/2 time69 [facility] Hospital, RoswellRithmio Work Phone: MV TDI E' (medial)5.43 cm/[employer] Work Phone: MV valve area p 1/2 method3.19 nq6PdoDuqgtwEditas Medicine Work Phone: PV peak gradient4.24mmHgVermont Psychiatric Care HospitalEditas Medicine Work Phone: IM7.1 cm0.6 - 1.1 [facility] - ErieRithmio Work Phone: RA area16.5 lc9TunYahveiEditas Medicine Work Phone: RV diastolic dimension (basal)32 [facility] Hospital [facility] Los AngelesRithmio Work Phone: CKNDK4.28 [facility] - ErieRithmio Work Phone: KAI7.01 cm/[employer] Work Phone: JWAFIM-7.69[facility] HospitalEditas Medicine Work Phone: EIUEZR-2.09[facility] HospitalEditas Medicine Work Phone: [phone] Work Phone: Cardiac echo study Procedureon [id number] Radiology Study observation (narrative)[facility] ClinicComprehensive metabolic panelon 21-08-2225Muitpjo [Mass/Vol]3.2 g/dL3.2 - 5.3 g/dLProPeoples Hospital SystemALP [Catalytic activity/Vol]118 U/L39 - 130 U/LProMedica Health SystemALT No additional P-5'-P [Catalytic activity/Vol]339 U/LHighNINF - 31 U/L [facility] ClinicAnion gap [Moles/Vol]8 mmol/L5 - 15 mmol/LProMedica Health SystemAST [Catalytic activity/Vol]261 U/LHighNINF - 41 U/LProMedica Health SystemBilirubin [Mass/Vol]0.4 mg/dL0.3 - 1.2 mg/dLOhioHealth Doctors Hospital System Calcium [Mass/Vol]9.1 mg/dL8.5 - 10.5 mg/dLOhioHealth Doctors Hospital SystemChloride [Moles/Vol]102 mmol/L98 - 109 mmol/LProMedica Health SystemCO2 [Moles/Vol]26 mmol/L22 - 32 mmol/LProMedica Health SystemCreatinine [Mass/Vol]2.45 mg/dLHigh 0.40 - 1.00 mg/dLOhioHealth Doctors Hospital SystemEGFR Non-Race Lwumtzyvg19Qva- PINF [facility] ClinicGlucose [Mass/Vol]207 mg/lJGbin53 - 99 mg/dLOhioHealth Doctors Hospital SystemInterpretation and review of laboratory resultsAbnormalProPeoples Hospital SystemPotassium [Moles/Vol]5.2 mmol/LHigh3.5 - 5.0 mmol/LProMedica Health SystemProtein [Mass/Vol]5.7 g/dLLow6.0 - 8.0 g/dLSt. Charles Hospital Health SystemSodium [Moles/Vol]136 mmol/L134 - 146 mmol/LProMedica Health SystemUrea nitrogen [Mass/Vol]50 mg/dLHigh5 - 27 mg/dLOhioHealth Doctors Hospital SystemECG 12 leadon 78-90-1679UETHSPXNJMGFYCFjdNfvqvo Health SystemLaboratory - Chemistry and Chemistry - challengeon 79-94-6001Mghdfppguh (U) [Mass/Vol]83.62 mg/dLOhioHealth Doctors Hospital SystemMAGNESIUMon 16-42-1143Kbiyvrbst [Mass/Vol]2.3 mg/dLNormal1.8-2.6 ProMcrossbridge behavioral healtha [facility] Hospital - AndersonComment on above:Performed By: #### PAB #### [facility] ([facility]) [address] [place] [address] VIRMAGNESIUMMG MAGNESIUM CancelledNormalOhioHealth Grant Medical Center HospitalComment on above:Order Comment: I SPOKE TO TAHMINA TORRES AT 0755AM FOR A REDRAW AND SHE SAID SOMEONE HAD ALREADY CALLED FOR A REDRAW.MICROALBUMIN / CREATININE URINE RATIOon 83-28-2090Bxlqqjt DL <= 20 mg/L (U) [Mass/Vol]22.6 mg/dLHigh0.0-1.9ProAccess Hospital DaytonComment on above:Performed By: #### PAB #### [facility] ([facility]) [address] [place] [address] VIRMALB/CREAT CAWCU916.3 mg/gHigh0.0-30.0Guernsey Memorial HospitalComment on above:Performed By: #### PAB #### [facility] ([facility]) [address] [place] [address] VIRURINE CREATININE,RDM83.62 mg/dLNormalGuernsey Memorial HospitalComment on above:Performed By: #### PAB #### [facility] ([facility]) [address] [place] [address] VIROrder Comment: Nephrotic Syndrome is associated with ratios >3.5MICROSCOPIC URINEon 66-85-0288VVASWLSthpeliMwjznflkSlbbXniZlxlze [place] HospitalComment on above:Performed By: #### PAB #### [facility] ([facility]) [address] [place] [address] VIROrder Comment: Urine received without preservative. Delays in transport may affect results. Interpret with caution. A clinical correlation is recommended.Performed By: #### BMP #### [facility] ([facility]) [address] [place] [address] VIRR.B.NVKBX1Cdybsl0-1SxaCmhhoa [place] HospitalComment on above:Performed By: #### PAB #### [facility] ([facility]) [address] [place] [address] VIRW.B.YYPAS08Ptnb6-2VsbBnrtiaWyandot Memorial HospitalComment on above: Performed By: #### PAB #### [facility] ([facility]) [address] [place] [address] VIRMagnesiumon 10-00-3063Ovpyihwwxwswhe and review of laboratory resultsNoOur Community HospitalMagnesium [Mass/Vol]2.3 mg/dL1.8 - 2.6 mg/dLCleveland ClinicMicroalbumin - Albumin: Creatinine Urine Ratio on 66-13-1322Cxivisx DL <= 20 mg/L (U) [Mass/Vol]22.6 mg/dLHigh0.0 - 1.9 mg/dL [facility] ClinicAlbumin/Creatinine DL <= 1.0 mg/L (U) [Ratio]270.3 mg/g High0.0 - 30.0 mg/gPrFort Hamilton HospitalMicroscopic, urineon 11-28-2024 Interpretation and review of laboratory resultsAbRichmond University Medical Center Mucus Ql (Urine sed)PresentAbnoAdirondack Medical CenterRBC Auto (Urine sed) [#/Area][facility]abula County Medical CenterWBC Auto (Urine sed) [#/Area]25Lxfu5 - 5PEncompass HealthNo Panel Informationon 55-12-1902Uprvsfqtiiixqt and review of laboratory resultsAbFormerly named [facility] & Oakview Care CenterPROTEIN CREAT RATIOon 11-28-2024U/PRO/PHILOSOPHY FACULTY RATIO CALC1.52High<=0.20[facility] on above:Order Comment: Nephrotic Syndrome is associated with ratios >3.5Performed By: #### PAB #### [facility] ([facility]) [address] [place] [address] VIRURINE PROTEIN, RANDOM (MG/L)1270 mg/LHigh<120ProAccess Hospital DaytonComment on above:Order Comment: Nephrotic Syndrome is associated with ratios >3.5Performed By: #### PAB #### [facility] ([facility]) [address] [place] [address] VIRProtein creat ratioon 07-81-5630Kpegvnc (U) [Mass/Vol]1270 mg/LHighNINF - 120 mg/LProMedica Health SystemProtein/Creatinine (U) [Ratio]1.52 HighNINF - 0.20ProMedica Health SystemProMediia Health SystemSODIUM, URINE, RANDOMon 03-27-4217Uphmmk (U) [Moles/Vol]20 mmol/LNormalProOhiohealth Berger Hospital HospitalComment on above:Performed By: #### PAB #### [facility] ([facility]) [address] [place] [address] VIRSodium, urine, randomon 79-47-5173Ltzwpy (U) [Moles/Vol]20 mmol/LProMedica Health SystemUREA RANDOM, URINEon 55-51-9044QKPFD UREA NITROGEN,NNVISV748 mg/dLNormalGuernsey Memorial HospitalComment on above: Performed By: #### PAB #### [facility] ([facility]) [address] [place] [address] VIRURINALYSISon 57-27-0716Rtzgmvlgy Ql (U)NegativeNormal NegativeGuernsey Memorial HospitalComment on above:Order Comment: Urine received without preservative. Delays in transport may affect results. Interpret with caution. A clinical correlation is recommended.Performed By: #### BMP #### [facility] ([facility]) [address] [place] [address] VIRBLOOD/HGBSmallAbnormalNegativeOhioHealth Grant Medical Center Hospital Comment on above:Order Comment: Urine received without preservative. Delays in transport may affect results. Interpret with caution. A clinical correlation is recommended.Performed By: #### BMP #### [facility] ([facility]) [address] [place] [address] VIRColor (U)YellowNormalYellowProAccess Hospital DaytonComment on above:Order Comment: Urine received without preservative. Delays in transport may affect results. Interpret with caution. A clinical correlation is recommended.Performed By: #### BMP #### [facility] ([facility]) [address] [place] [address] VIRGlucose Ql (U)500 mg/dLAbnormalNegativeGuernsey Memorial HospitalComselect specialty hospital on above:Order Comment: Urine received without preservative. Delays in transport may affect results. Interpret with caution. A clinical correlation is recommended.Performed By: #### BMP #### [facility] ([facility]) [address] [place] [address] VIRHyaline casts LM Ql (Urine sed)2Uvxjpd6-4LhiVprgrh [facility] - AndersonComselect specialty hospital on above:Order Comment: Urine received without preservative. Delays in transport may affect results. Interpret with caution. A clinical correlation is recommended.Performed By: #### BMP #### [facility] ([facility]) [address] [place] [address] VIRKetones Ql (U)NegativeNormalNegativeGuernsey Memorial HospitalComselect specialty hospital on above:Order Comment: Urine received without preservative. Delays in transport may affect results. Interpret with caution. A clinical correlation is recommended.Performed By: #### BMP #### [facility] ([facility] [place]) [address] [place] [address] [id number] VIRLeukocyte esterase Test strip Ql (U)NegativeNormalNegative [facility] on above:Order Comment: Urine received without preservative. Delays in transport may affect results. Interpret with caution. A clinical correlation is recommended.Performed By: #### BMP #### [facility] ([facility] [place]) [address] [place] [id number] VIRNitrite Ql (U)NegativeNormalNegativeProAccess Hospital DaytonComment on above:Order Comment: Urine received without preservative. Delays in transport may affect results. Interpret with caution. A clinical correlation is recommended.Performed By: #### BMP #### [facility] ([facility]) [address] [place] [address] VIRPH,URINE5.9Xgepcl0.0-8.5PWyandot Memorial HospitalComment on above:Order Comment: Urine received without preservative. Delays in transport may affect results. Interpret with caution. A clinical correlation is recommended.Performed By: #### BMP #### [facility] ([facility]) [address] [place] [address] VIRProtein Ql (U)50 mg/dLAbnormalNegativeGuernsey Memorial HospitalComselect specialty hospital on above:Order Comment: Urine received without preservative. Delays in transport may affect results. Interpret with caution. A clinical correlation is recommended.Performed By: #### BMP #### [facility] ([facility]) [address] [place] [address] VIRR.B.CELLS<^2Qprvis6-4XkeUrxqdqWyandot Memorial HospitalComment on above:Order Comment: Urine received without preservative. Delays in transport may affect results. Interpret with caution. A clinical correlation is recommended.Performed By: #### BMP #### [facility] ([facility]) [address] [place] [address] VIRSpecific gravity (U) [Rel density]1.566Mikzir0.003-1.035 [facility] - AndersonComment on above:Order Comment: Urine received without preservative. Delays in transport may affect results. Interpret with caution. A clinical correlation is recommended.Performed By: #### BMP #### [facility] ([facility]) [address] [place] [address] VIRSQUAMOUS AMWNBGFLBK6Zcqejz5-8DffXqsibw [facility] Comment on above:Order Comment: Urine received without preservative. Delays in transport may affect results. Interpret with caution. A clinical correlation is recommended.Performed By: #### BMP #### [facility] ([facility]) [address] [place] [address] VIRTURBIDITYClearNormalClearGuernsey Memorial HospitalComselect specialty hospital on above:Order Comment: Urine received without preservative. Delays in transport may affect results. Interpret with caution. A clinical correlation is recommended.Performed By: #### BMP #### [facility] ([facility]) [address] [place] [address] VIRUROBILINOGEN<1.1 eu/dLNormal<1.1 eu/dLProAccess Hospital DaytonComselect specialty hospital on above:Order Comment: Urine received without preservative. Delays in transport may affect results. Interpret with caution. A clinical correlation is recommended.Performed By: #### BMP #### [facility] ([facility]) [address] [place] [address] VIRW.B.DBQXH73Fmnt8-8AyrYwzsfk [facility] - AndersonComselect specialty hospital on above: Order Comment: Urine received without preservative. Delays in transport may affect results. Interpret with caution. A clinical correlation is recommended. Performed By: #### BMP #### [facility] ([facility]) [address] [place] [address] VIRURINE CREATININE,RANDOMon 81-25-6830OIFCZ CREATININE,RDM 85.13 mg/dLNoalGuernsey Memorial HospitalComselect specialty hospital on above:Performed By: #### PAB #### [facility] ([facility]) [address] [place] [address] VIRUS RETROPERITONEAL COMPLETEon 13-11-8885QD RETROPERITONEAL COMPLETEUS RETROPERITONEAL COMPLETE US RETROPERITONEAL COMPLETE [...] by Jayden Fernandez MD on 11/28/2024 10:14 AMNormalProProtestant Hospitalca Paul HospitalUS Retroperitoneumon 77-08-1348KJOUGXGGSTTtuFiipfh Health System Radiology Study observation (narrative)[facility] Retroperitoneum Ordered By: Jayden Fernandez on 02-71-9617KcqAjhyhjCleveland Clinic Work Phone: Urea random, urineon 35-58-7829Xneb nitrogen (24H U) [Mass/Vol]607 mg/dLCleveland ClinicUrinalysisOrdered By: Violeta Mckeon on 20-45-8472Syvdtttwk Ql (U)NegativeNegativeOhioHealth Doctors Hospital System Color (U)YellowYellowOhioHealth Doctors Hospital SystemEpithelial cells Auto (Urine sed) [#/Area]10 - 5PAshtabula County Medical CenterGlucose (U) [Mass/Vol]500 mg/dLAbnormal NegativeCleveland ClinicHemoglobin Auto test strip Ql (U)SmallAbnormal NegativeCleveland ClinicHyaline casts (Urine sed) [#/Area]1 /[LPF]0 - 2 Cleveland ClinicInterpretation and review of laboratory resultsAbnormal Cleveland ClinicKetones (U) [Mass/Vol]NegativeNegativeOhioHealth Doctors Hospital SystemLeukocyte esterase Auto test strip Ql (U)NegativeNegativeCleveland ClinicMucus Ql (Urine sed)PresentAbnormalAPI HealthcareNitrite Auto test strip Ql (U)NegativeNegativeCleveland ClinicpH (U)5.5 [pH]5.0 - 8.5 [facility] SystemProtein (U) [Mass/Vol]50 mg/dLAbnormalNegativeCleveland ClinicRBC Auto (Urine sed) [#/Area]0 - 5PAtrium Health Wake Forest Baptist Medical Centerpecific gravity Refractometry automated (U) [Rel density]1.0181.003 - 1.035Cleveland ClinicTurbidity Ql (U)ClearClearPAshtabula County Medical CenterUrobilinogen Qn (U){Kaushik'U}/dL<1.1 eu/dLCleveland ClinicWBC Auto (Urine sed) [#/Area] 12Mxvp9 - 5PAspirus Langlade Hospital Urine Creatinine,randomon 41-29-5305Hdtlytntod (U) [Mass/Vol]85.13 mg/dL [facility] Hospital of ErieALBUMINon 32-46-9087Rwbulvp [Mass/Vol]3.4 g/dLNormal3.2-5.3PWyandot Memorial HospitalComment on above: Performed By: #### TSC #### [facility] ([facility]) [address] [place] [address] VIRAlbuminon 52-48-0412Ygheeyx [Mass/Vol]3.4 g/dL3.2 - 5.3 g/dL Cleveland ClinicB-TYPE NATRIURETIC PEPTIDEon 51-83-7036Uaiqmegtvjs peptide B (Bld) [Mass/Vol]605 pg/mLHigh<=100Guernsey Memorial HospitalComment on above:Performed By: #### TSC #### [facility] ([facility]) [address] [place] [address] VIRB-type natriuretic peptideon 95-01-6627Twbxgkjojiskhr and review of laboratory resultsAbnormalCleveland ClinicNatriuretic peptide B (Bld) [Mass/Vol]605 pg/mLHighNINF - 100 pg/mLEncompass Health Rehabilitation Hospital of ErieBASIC METABOLIC PANELon 80-35-7977Oorec gap [Moles/Vol]7 mmol/L Normal5-15Guernsey Memorial HospitalComment on above:Performed By: #### BMP ####[facility] ([facility])[address] [address] VIRCalcium [Mass/Vol]9.1 mg/dLNormal8.5-10.5PWyandot Memorial Hospital Comment on above:Performed By: #### BMP ####[facility] ([facility])[address] [address] VIRChloride [Moles/Vol]105 mmol/L Aymjjv90-275UcqSpxpwe [facility] HospitalComment on above:Performed By: #### BMP ####[facility] ([facility])[address] [address] VIRCO2 [Moles/Vol]28 mmol/RIpwqns50-79NhfLambpg [facility] HospitalComment on above:Performed By: #### BMP ####[facility] ([facility])[address] [address] VIRCreatinine [Mass/Vol]2.53 mg/dLHigh 0.40-1.00ProAccess Hospital DaytonComment on above:Result Comment: METHOD TRACEABLE TO IDMS STANDARDPerformed By: #### BMP ####[facility] ([facility])[address] [address] VIRGFR/1.73 sq M.predicted among non-blacks MDRD (S/P/Bld) [Vol rate/Area]19 mL/min/{1.73_m2} Low>=60ProAccess Hospital DaytonComment on above:Result Comment: Reported eGFR is based on the CKD-EPI 1 equation that does not use a race coefficient.Performed By: #### BMP ####[facility] ([facility])[address] [address] VIRGlucose [Mass/Vol]151 mg/qXTiqo45-16GkvGqjwtt [facility] HospitalComment on above:Performed By: #### BMP ####[facility] ([facility])[address] [address] VIRPotassium [Moles/Vol]4.5 mmol/LNormal3.5-5.0Gu[facility] Comment on above:Performed By: #### BMP ####[facility] ([facility])[address] [facility] [address] [place] [address] VIRSodium [Moles/Vol]140 mmol/L Armesn048-152LygBcwhhm [facility] HospitalComment on above:Performed By: #### BMP ####[facility] ([facility])[address] [place] [address] VIRUrea nitrogen [Mass/Vol]49 mg/dLHigh5-27[facility] Comment on above:Performed By: #### BMP ####[facility] ([facility])[address] [address] VIRBEDSIDE GLUCOSEon 11-27-2024 Glucose [Mass/Vol]290 mg/aNWtgo95-55CcwOrjkbyGuernsey Memorial HospitalComment on above: Performed By: #### TSC #### [facility] ([facility]) [address] [place] [address] VIRGlucose [Mass/Vol]245 mg/eNPmur95-98KylTywjrvCleveland Clinic Comment on above:Performed By: #### BEDG ####[facility] ([facility])[address] [place] [address] VIRGlucose [Mass/Vol]174 mg/pTDqbt43-80 Guernsey Memorial HospitalComment on above:Performed By: #### BEDG ####[facility] ([facility])[address] [place] [address] VIRGlucose [Mass/Vol]147 mg/rUPheg34-24AwmMydvgnGuernsey Memorial HospitalComment on above:Performed By: #### BEDG ####[facility] ([facility])[address] [place] [address] VIRBasic Metabolic Panelon 97-17-3593Agdjm gap [Moles/Vol]7 mmol/L5 - 15 mmol/LProMedica Health SystemCalcium [Mass/Vol]9.1 mg/dL8.5 - 10.5 mg/dL [facility]Medica Health SystemChloride [Moles/Vol]105 mmol/L98 - 109 mmol/LProMedica Health SystemCO2 [Moles/Vol]28 mmol/L22 - 32 mmol/LProMedica Health System Creatinine [Mass/Vol]2.53 mg/dLHigh0.40 - 1.00 mg/dLOhioHealth Doctors Hospital SystemEGFR Non-Race Tcdspdsof78Bkl- PINFProMedica University [facility]als [facility] SystemGlucose [Mass/Vol]151 mg/dL High65 - 99 mg/dLOhioHealth Doctors Hospital SystemInterpretation and review of laboratory resultsAbnormalSt. Charles Hospital Health SystemPotassium [Moles/Vol]4.5 mmol/L3.5 - 5.0 mmol/LProMedica Health SystemSodium [Moles/Vol]140 mmol/L134 - 146 mmol/L [facility] SystemUrea nitrogen [Mass/Vol]49 mg/dLHigh5 - 27 mg/dLCleveland ClinicBedside Glucose *Place/Obtain serum glucose if >500 per glucometer.on 48-12-4304Cyxacea [Mass/Vol]290 mg/bLWwxa56 - 99 mg/dLOhioHealth Doctors Hospital SystemInterpretation and review of laboratory resultsAbnormKensington Hospital SystemOhioHealth Doctors Hospital SystemInterpretation and review of laboratory resultsAbnoUPMC Western Psychiatric Hospital SystemOhioHealth Doctors Hospital SystemGlucose [Mass/Vol] 147 mg/aMJkwq75 - 99 mg/dLOhioHealth Doctors Hospital SystemInterpretation and review of laboratory resultsAbnoUPMC Western Psychiatric Hospital SystemOhioHealth Doctors Hospital SystemGlucose [Mass/Vol]174 mg/kVWcpt57 - 99 mg/dLOhioHealth Doctors Hospital SystemInterpretation and review of laboratory resultsAbSSM Health St. Mary's Hospital SystemCBC (NO DIFF)on 51-48-6668Hrwesdipaho distribution width (RBC) [Ratio]12.6 %Foimwu66.5-15Guernsey Memorial HospitalComment on above:Performed By: #### CBCA #### [facility] ([facility]) [address] [place] [address] VIRHematocrit (Bld) [Volume fraction]32.1 %Abg72-86UopUlyxdx Paul HospitalComment on above:Performed By: #### CBCA #### [facility] ([facility]) [address] [place] [address] VIRHemoglobin (Bld) [Mass/Vol]11.0 g/dLLow11.7-15.5ProMedica Crook HospitalComment on above:Performed By: #### CBCA #### [facility] ([facility]) [address] [place] [address] VIRMCH (RBC) [Entitic mass]33.3 saDdrcwi86-13FtpBeevfg Crook HospitalComment on above:Performed By: #### CBCA #### [facility] ([facility]) [address] [place] [address] VIRMCHC (RBC) [Mass/Vol]34.2 g/kWPdodje02-59XmrEovwua Crook HospitalComment on above:Performed By: #### CBCA #### [facility] ([facility]) [address] [place] [address] VIRMCV (RBC) [Entitic vol]97 lOEoevco17-995WgyRpsuet Crook HospitalComment on above:Performed By: #### CBCA #### [facility] ([facility]) [address] [place] [address] VIRPlatelet mean volume (Bld) [Entitic vol]9.0 fLNormal7-12 ProMedica Crook HospitalComment on above:Performed By: #### CBCA #### [facility] ([facility]) [address] [place] [address] VIRPlatelets (Bld) [#/Vol]147 10*3/wWZat432-054RntZnnxmu Paul HospitalComment on above:Performed By: #### CBCA #### [facility] ([facility]) [address] [place] [address] VIRRBC COUNT3.30 X10E12/LLow3.8-5.2PWyandot Memorial Hospital Comment on above:Performed By: #### CBCA #### [facility] ([facility]) [address] [place] [address] VIRWBC (Bld) [#/Vol]8.1 10*3/uLNormal4-11Guernsey Memorial HospitalComment on above:Performed By: #### CBCA #### [facility] ([facility]) [address] [place] [address] VIRCBC without diffon 55-03-0066Hylbvlkadfz distribution width (RBC) [Ratio]12.6 %11.5 - 15 %Cleveland ClinicHematocrit (Bld) [Volume fraction]32.1 %Low35 - 47 %Cleveland ClinicHemoglobin (Bld) [Mass/Vol]11 g/dLLow11.7 - 15.5 g/dLCleveland ClinicInterpretation and review of laboratory resultsAbnoSelect Specialty Hospital - Winston-SalemH (RBC) [Entitic mass]33.3 pg 27 - 34 [facility] Memorial HospitalMCHC (RBC) [Mass/Vol]34.2 g/dL32 - 36 g/dL Cleveland ClinicMCV (RBC) [Entitic vol]97 fL80 - 100 [facility] NorthlandPlatelet mean volume (Bld) [Entitic vol]9 fL7 - 12 [facility] NorthlandPlatelets (Bld) [#/Vol]147 10*3/uLLowCleveland ClinicRBC (Bld) [#/Vol]3.3 10*6/uLLake County Memorial Hospital - WestWBC LM Ql (Sput)8.1PEncompass HealthCK TOTALon 77-49-0435NIY04 U/BWnc56-869RlrGvycqgGuernsey Memorial HospitalComment on above:Performed By: #### TSC #### [facility] ([facility]) [address] [place] [address] VIRCK Totalon 25-22-4752BB [Catalytic activity/Vol]18 U/LLow24 - 170 U/LProMedica Health SystemInterpretation and review of laboratory results AbnormalCleveland ClinicNo Panel Informationon 75-36-9884Tzdrrreceorebr and review of laboratory resultsNormalProMizell Memorial Hospital Health SystemProPeoples Hospital SystemProPeoples Hospital SystemPARATHYROID HORMOME, INTACTon 89-20-8693CZJ INTACT 116 pg/bZUach90-64YvrBnsomj [place] HospitalComment on above:Performed By: #### PTH ####[facility] ([facility])[address] [facility] [address] [address] VIRPHOSPHORUSon 01-73-1379Njrlgyvvi [Mass/Vol]4.3 mg/dLNormal2.4-4.9 Guernsey Memorial HospitalComment on above:Performed By: #### PHOS ####[facility] ([facility])[address] [address], [place] [address] VIR PREALBUMINon 86-87-2152Nuimrmpoct [Mass/Vol]27 mg/bXKayxft79-45MhgUnvlxi [place] HospitalComment on above:Performed By: #### PAB ####[facility] ([facility])[address] [facility] [address] [address] VIRParathyroid Hormone, intacton 80-21-0473Vnmjacaqmwudcz and review of laboratory resultsAbnormal Cleveland ClinicParathyrin.intact [Mass/Vol]116 pg/rYSbze58 - 88 pg/mL [facility] SystemPhosphoruson 68-74-4115Qzapyrjip [Mass/Vol]4.3 mg/dL2.4 - 4.9 mg/dLCleveland ClinicPrealbuminon 11-27-2024 Interpretation and review of laboratory resultsNormalC[facility] Clinic Prealbumin IA [Mass/Vol]27 mg/dL18 - 45 mg/dLCleveland ClinicURIC ACIDon 59-50-6916Vmdgk [Mass/Vol]6.6 mg/dLNormal2.6-7.2PBayne Jones Army Community Hospitalica Crook HospitalComment on above:Performed By: #### TSC #### [facility] ([facility]) [address] [place] [address] VIRUric acidon 72-43-3290Dzwut [Mass/Vol]6.6 mg/dL2.6 - 7.2 mg/dLCleveland ClinicVITAMIN D 25 HYDROXYon 30-05-0880XEXOZUQ D 25 HYD TOT23.1 ng/mLLow30.0-100.0Guernsey Memorial HospitalComment on above:Order Comment: Vitamin D status 25 [place] Vitamin D Deficiency <20 ng/mLInsufficiency 20-29 ng/mLSufficiency 30-100 ng/mLToxicity >100 ng/mLNOTE: A pediatric reference range has not been established by the protective service specialist of this kit. The [place] [employer] recommends a Vitamin D level of = or >20ng/mL in infants and children.Performed By: #### VITD ####[facility] (TT)[address] [address] VIRVitamin D 25 hydroxyon 48-23-027152203487-gvcvlsaryaqktv D3 [Mass/Vol]23.1 ng/mLLow30.0 - 100.0 ng/mLCleveland ClinicInterpretation and review of laboratory results AbnormalAspirus Langlade HospitalXR CHEST 1 VWon 06-75-5813AI CHEST 1 VWXR CHEST 1 VW EXAM: XR CHEST 1 VW CLINICAL INFORMATION: CHF. COMPARISON: 06/09/2016 FINDINGS: There are no pleural effusions. There are low lung volumes with some associated hypoventilatory changes. Next able heart IMPRESSION: 1. No acute cardiopulmonary disease. Finalized by Adolfo Jessica MD on 11/27/2024 9:55 PMNormalGuernsey Memorial HospitalXR Chest Single viewon 35-91-4734BSRQWHMIEBTouBmpion Health SystemRadiology Study observation (narrative)[facility] ClinicXR Chest Single viewOrdered By: Adolfo Jessica on 29-86-2610CatKhzibfCleveland Clinic Work Phone: XR HIP RT 2-3 VIEWS W OR WO PELVISon 16-99-7682DQ HIP RT 2-3 VIEWS W OR WO [...] Everett Rivera MD on 11/27/2024 5:33 PMNormalProMedica Crook HospitalXR HIP RT 2-3 VIEWS W OR WO PELVISXR HIP RT 2-3 VIEWS W OR WO PELVIS XR HIP RT 2-3 VIEWS W OR WO PELVIS IMPRESSION: right dylon Intraoperative fluoroscopy provided. The reference air kerma was 1.35 mGy. Finalized by Boyd Thompson MD on 11/27/2024 2:34 PMNormalGuernsey Memorial HospitalXR Pelvis and Hip - right 2 Viewson 00-47-9972KYVDPHEUREPenVlfdwn Health SystemRadiology Study observation (narrative)[facility] CenterECTRAGunnison Valley Hospital SystemRadiology Study observation (narrative)[facility] ClinicXR Pelvis and Hip - right 2 ViewsOrdered By: Everett Rivera on 11-27-2024 [facility] Work Phone: XR Pelvis and Hip - right 2 ViewsOrdered By: Boyd Thompson on 02-19-5119WcqUdthhoCleveland Clinic Work Phone: B-TYPE NATRIURETIC PEPTIDEon 45-53-1840Ctllvabkgjp peptide B (Bld) [Mass/Vol]382 pg/mLHigh<=100Guernsey Memorial HospitalComment on above:Performed By: #### CBCA #### [facility] ([facility]) [address] [place] [address] VIRB-type natriuretic peptideon 37-69-7005Wwrizrykwiamaf and review of laboratory resultsAbnormalCleveland ClinicNatriuretic peptide B (Bld) [Mass/Vol]382 pg/mLHighNINF - 100 pg/mLCleveland ClinicProKettering Health HamiltonBASIC METABOLIC PANELon 81-04-6149Wgzel gap [Moles/Vol]11 mmol/L Normal5-15Guernsey Memorial HospitalComment on above:Performed By: #### BMP #### [facility] ([facility]) [address] [place] [address] VIRCalcium [Mass/Vol]9.3 mg/dLNormal8.5-10.5PWyandot Memorial HospitalComment on above:Performed By: #### BMP #### [facility] ([facility]) [address] [place] [address] VIRChloride [Moles/Vol]103 mmol/WQgcinn82-927OblPtyraq [place] HospitalComment on above:Performed By: #### BMP #### [facility] ([facility]) [address] [place] [address] VIRCO2 [Moles/Vol]27 mmol/AGynqic11-96VntXwcqxfWyandot Memorial Hospital Comment on above:Performed By: #### BMP #### [facility] ([facility]) [address] [place] [address] VIRCreatinine [Mass/Vol]2.57 mg/dLHigh0.40-1.00ProAccess Hospital DaytonComment on above:Result Comment: METHOD TRACEABLE TO IDMS STANDARD Performed By: #### BMP #### [facility] ([facility]) [address] [place] [address] VIRGFR/1.73 sq M.predicted among non-blacks MDRD (S/P/Bld) [Vol rate/Area]19 mL/min/{1.73_m2}Low>=60ProAccess Hospital DaytonComment on above: Result Comment: Reported eGFR is based on the CKD-EPI 2020 equation that does not use a race coefficient.Performed By: #### BMP #### [facility] ([facility]) [address] [place] [address] VIRGlucose [Mass/Vol]151 mg/eGPpmn05-64AkpBclsjc [place] HospitalComment on above:Performed By: #### BMP #### [facility] ([facility]) [address] [place] [address] VIRPotassium [Moles/Vol]4.3 mmol/LNormal3.5-5.0ProOhiohealth Berger Hospital HospitalComment on above:Result Comment: R-Specimen moderately hemolyzed, results increasedPerformed By: #### BMP #### [facility] ([facility]) [address] [place] [address] VIRSodium [Moles/Vol]141 mmol/QOcdrgw533-561CfcVhaowt [place] HospitalComment on above:Performed By: #### BMP #### [facility] ([facility]) [address] [place] [address] VIRUrea nitrogen [Mass/Vol]50 mg/dLHigh5-27ProOhiohealth Berger Hospital HospitalComment on above:Performed By: #### BMP #### [facility] ([facility]) [address] [place] [address] VIRAnion gap [Moles/Vol]9 mmol/LNormal5-15ProH[facility] Healthcare NorthwestComment on above:Performed By: #### NORA, 3016-3, LIVR, BMP #### [facility] ([id number]) [address] [place] [id number] #### HA1C, 65767-0 #### [facility] ([id number]) [address], [address] [place], [place] [address]Bgfnndd [Mass/Vol]9.3 mg/dLNormal8.5-10.5Pro[facility] HospitalComment on above:Performed By: #### NORA, 3016-3, LIVR, BMP #### [facility] ([id number]) [address] [place] [address] #### PABLO [id number] #### [facility] ([id number]) [address] [place] [address], [address] [place], [place] [address]Fwjadtbj [Moles/Vol]100 mmol/PQrdiro12-358VtrXsazzkKettering Health HamiltonComment on above:Performed By: #### NORA, 6-3, LIVR, BMP #### [facility] ([id number]) [address] [place] [address] #### PABLO 85333-7 #### [facility] ([id number]) [address] [place] [address], [address] [place], [place] [address]VG9 [Moles/Vol]27 mmol/JTfkqyl98-50FmgXmomgqFirelands Regional Medical Center Comment on above:Performed By: #### NORA, 6-3, LIVEva, BMP #### [facility] ([id number]) [address] [place] [address] 82896 #### PABLO [id number] #### [facility] ([id number]) [address] [place] [address], [address] [place], [place] [address]Aaxcsajybo [Mass/Vol]2.79 mg/dLHigh0.40-1.00K[facility]tering Health HamiltonComment on above:Result Comment: METHOD TRACEABLE TO IDMS STANDARD Performed By: #### NORA, 6-3, LIVR, BMP #### [facility] ([id number]) [address] [place] [address] #### PABLO, 94113-5 #### [facility] ([id number]) [address] [place] [address], [address] [place], [place] [address]TFB/1.73 sq M.predicted among non-blacks MDRD (S/P/Bld) [Vol rate/Area]17 mL/min/{1.73_m2}Low>=60ProHca Houston Healthcare NorthwestComment on above: Result Comment: eGFR not reported due to non-numeric value for Creatinine. Reported eGFR is based on the CKD-EPI 2020 equation that does not use a race coefficient.Performed By: #### NORA 3, JOHNNY SERRANO #### [facility] ([id number]) [address] [place] [address] #### PABLO 48661-1 #### [facility] ([id number]) [address] [facility], [address] [place], [place] [address]Tyrxifc [Mass/Vol]252 mg/rZStyx43-85WzsTeqxdwKettering Health Hamilton Comment on above:Performed By: #### NORA 3, JOHNNY SERRANO #### [facility] ([id number]) [address] [place] [address] #### PABLO 78471-1 #### [facility] ([id number]) [address] [facility], [address] [place], [place] [address]Ekyjkgyev [Moles/Vol]3.8 mmol/LNormal3.5-5.0ProHca Houston Healthcare NorthwestComment on above:Performed By: #### NORA 3, ZACH BMP #### [facility] ([id number]) [address] [place] [address] #### PABLO 63704-5 #### [facility] ([id number]) [address] [facility], [address] [place], [place] [address]Dtxscr [Moles/Vol]136 mmol/SUwxjqc136-061TvjVtsqxo Fremont HospitalComment on above:Performed By: #### NORA 3, LIVEva, BMP #### [facility] ([id number]) [address] [place] [address] #### PABLO 51931-5 #### [facility] ([id number]) [address] [facility], [address] [place], [place] [address]Uucg nitrogen [Mass/Vol]51 mg/dLHigh5-27ProHca Houston Healthcare NorthwestComment on above:Performed By: #### NORA, 3016-3, JOHNNY SERRANO #### [facility] ([id number]) [address] [place] [address], [place] [address] #### HA1C, 11703-1 #### [facility] ([id number]) [address], [address] [place], [place] [address]UXBDNNY GLUCOSEon 17-82-2202Riuzosp [Mass/Vol]231 mg/tLGibc37-86 [facility] HospitalComment on above:Performed By: #### CBCA #### [facility] ([facility]) [address] [place] [address] VIRGlucose [Mass/Vol]122 mg/tOZpqn10-64GxyOihwoiGuernsey Memorial HospitalComment on above:Performed By: #### NORA #### [facility] ([facility]) [address] [place] [address] VIRBasic Metabolic Panelon 78-80-8297Snhrm gap [Moles/Vol]11 mmol/L5 - 15 mmol/LProMedica Health SystemCalcium [Mass/Vol]9.3 mg/dL8.5 - 10.5 mg/dLProMizell Memorial Hospital Health SystemChloride [Moles/Vol]103 mmol/L98 - 109 mmol/L [facility] Instituteedic Health SystemCO2 [Moles/Vol]27 mmol/L22 - 32 mmol/LProMedica Health SystemCreatinine [Mass/Vol]2.57 mg/dLHigh0.40 - 1.00 mg/dLProProtestant Hospitalca Health SystemEGFR Non-Race Ypqlkvmya44Ohn- PINFProMedica Health SystemGlucose [Mass/Vol]151 mg/iZTrup17 - 99 mg/dLProMizell Memorial Hospital Health SystemPotassium [Moles/Vol] 4.3 mmol/L3.5 - 5.0 mmol/LProMedica Health SystemSodium [Moles/Vol]141 mmol/L134 - 146 mmol/LProMedica Health SystemUrea nitrogen [Mass/Vol]50 mg/dLHigh5 - 27 mg/dLCleveland ClinicBedside Glucose *Place/Obtain serum glucose if >500 per glucometer.on 20-91-3391Ongsubp [Mass/Vol]231 mg/dUSjqu46 - 99 mg/dL Cleveland ClinicInterpretation and review of laboratory resultsAbnormal [facility] Hospital of ErieGlucose [Mass/Vol]122 mg/kLBxcf56 - 99 mg/dLCleveland ClinicInterpretation and review of laboratory results AbnormalEncompass Health Rehabilitation Hospital of ErieCBC WITH AUTO DIFFERENTIAL on 03-70-5534LJPNOJGEQ ABSOLUTE COUNT (10*3/UL) BY AUTOMATED COUNT0.0 10*3/uL Normal0.0-0.2PWyandot Memorial HospitalComment on above:Performed By: #### CBCA #### [facility] ([facility]) [address] [place] [address] VIRBASOPHILS RELATIVE PERCENT BY AUTOMATED COUNT0.3 %Normal [facility] Memorial HospitalComment on above:Performed By: #### CBCA #### [facility] ([facility]) [address] [place] [address] VIRCELLAVISION DIFFERENTIAL TYPEAUTOMATED DIFFERENTIALNoPremier Health Miami Valley Hospital NorthComment on above:Performed By: #### CBCA #### [facility] ([facility]) [address] [place] [address] VIREosinophils (Bld) [#/Vol]0.1 10*3/uLNormal0.0-0.4Gu[facility]sey Memorial HospitalComment on above:Performed By: #### CBCA #### [facility] ([facility]) [address] [place] [address] VIREOSINOPHILS RELATIVE PERCENT BY AUTOMATED COUNT0.6 %Normal [facility] Memorial HospitalComselect specialty hospital on above:Performed By: #### CBCA #### [facility] ([facility]) [address] [place] [address] VIRErythrocyte distribution width (RBC) [Ratio]12.6 %Normal 11.5-15ProMedica Crook HospitalComment on above:Performed By: #### CBCA #### [facility] ([facility]) [address] [place] [address] VIRHematocrit (Bld) [Volume fraction]34.6 %Cvk89-25QhdDokrsi Crook HospitalComment on above:Performed By: #### CBCA #### [facility] ([facility]) [address] [place] [address] VIRHemoglobin (Bld) [Mass/Vol]11.8 g/hRCpnhah81.7-15.5ProMedica Crook HospitalComment on above:Performed By: #### CBCA #### [facility] ([facility]) [address] [place] [address] VIRLYMPHOCYTES ABSOLUTE COUNT (10*3/UL) BY AUTOMATED COUNT0.8 10*3/uLLow1.0-3.5ProMedCommunity Regional Medical Center HospitalComment on above:Performed By: #### CBCA #### [facility] ([facility]) [address] [place] [address] VIRLYMPHOCYTES RELATIVE PERCENT BY AUTOMATED COUNT6.8 %Normal ProMedica Crook HospitalComment on above:Performed By: #### CBCA #### [facility] ([facility]) [address] [place] [address] VIRMCH (RBC) [Entitic mass]32.5 xoMxaivi01-34DotVnypam Paul HospitalComment on above:Performed By: #### CBCA #### [facility] ([facility]) [address] [place] [address] VIRMCHC (RBC) [Mass/Vol]34.0 g/jSOtbrzv48-35PouMclnhp Paul HospitalComment on above:Performed By: #### CBCA #### [facility] ([facility]) [address] [place] [address] VIRMCV (RBC) [Entitic vol]96 nSZgpcqa48-468OcbGbaxrv Crook HospitalComment on above:Performed By: #### CBCA #### [facility] ([facility]) [address] [place] [address] VIRMONOCYTES ABSOLUTE COUNT (10*3/UL) BY AUTOMATED COUNT1.0 10*3/uLHigh0.0-0.9ProOhiohealth Berger Hospital HospitalComment on above:Performed By: #### CBCA #### [facility] ([facility]) [address] [place] [address] VIRMONOCYTES RELATIVE PERCENT BY AUTOMATED COUNT7.7 %Normal [facility] HospitalComment on above:Performed By: #### CBCA #### [facility] ([facility]) [address] [place] [address] VIRNEUTROPHILS ABSOLUTE COUNT BY AUTOMATED COUNT10.5 10*3/uL High1.5-6.6ProOhiohealth Berger Hospital HospitalComment on above:Performed By: #### CBCA #### [facility] ([facility]) [address] [place] [address] VIRNEUTROPHILS RELATIVE PERCENT BY AUTOMATED COUNT84.6 %Normal [facility] HospitalComment on above:Performed By: #### CBCA #### [facility] ([facility]) [address] [place] [address] VIRPlatelet mean volume (Bld) [Entitic vol]9.1 fLNormal7-12 ProMOhio Valley Surgical Hospital HospitalComment on above:Performed By: #### CBCA #### [facility] ([facility]) [address] [place] [address] VIRPlatelets (Bld) [#/Vol]204 10*3/hZFknrgh001-423OgxMfffke Toledo HospitalComment on above:Performed By: #### CBCA #### [facility] ([facility]) [address] [place] [address] VIRRBC COUNT3.62 X10E12/LLow3.8-5.2PWyandot Memorial Hospital Comment on above:Performed By: #### NORA #### [facility] ([facility]) [address] [place] [address] VIRWBC (Bld) [#/Vol]12.4 10*3/uLHigh4-11ProMedica Our Lady Of Mercy Hospital - AndersonComment on above:Performed By: #### NORA #### [facility] ([facility]) [address] [place] [address] VIRBASOPHILS ABSOLUTE COUNT (10*3/UL) BY AUTOMATED COUNT0.0 10*3/uLNormal0.0-0.2PFirelands Regional Medical CenterComment on above:Performed By: #### NORA 3016-3, LIVR, BMP #### [facility] ([id number]) [address] [place], [place] [address] #### PABLO 84131-1 #### [facility] ([id number]) [address], [address] [place], [place] [address]XDOBSYDNA RELATIVE PERCENT BY AUTOMATED COUNT0.3 %Normal [facility]tering Health HamiltonComment on above:Performed By: #### NORA 3016-3, LIVR, BMP #### [facility] ([id number]) [address] [place] [address] #### PABLO 09573-4 #### [facility] ([id number]) [address], [address] [place], [place] [address]JANWVMZONEO DIFFERENTIAL TYPEAUTOMATED DIFFERENTIALNormal [facility] Health HamiltonComment on above:Performed By: #### NORA, 6-3, LIVR, BMP #### [facility] ([id number]) [address] [place] [address] #### PABLO 46405-2 #### [facility] ([id number]) [address] [place] [address], [address] [place], [place] [address]Efjmqsqpnji (Bld) [#/Vol]0.1 10*3/uLNormal0.0-0.4Kettering Health HamiltonComment on above:Performed By: #### NORA, 6-3, LIVR, BMP #### [facility] ([id number]) [address] [place] [address] #### PABLO 00574-7 #### [facility] ([id number]) [address] [place] [address], [address] [place], [place] [address]FTTCDETSSCW RELATIVE PERCENT BY AUTOMATED COUNT1.1 %Normal ProMSan Dimas Community HospitalComment on above:Performed By: #### NORA, 63, LIVR, BMP #### [facility] ([id number]) [address] [place] [address] #### PABLO, 96235-9 #### [facility] ([id number]) [address] [place] [address], [facility] [address] [place], [place] [address]Gazezpvvqqk distribution width (RBC) [Ratio]12.9 %Xrqzzg74.5-15 ProMSan Dimas Community HospitalComment on above:Performed By: #### NORA, 3015-3, LIVR, BMP #### [facility] ([id number]) [address] [place] [address] #### PABLO, 98411-0 #### [facility] ([id number]) [address] [place] [address], [address] [place], [place] [address]Qhlmojwxgp (Bld) [Volume fraction]36.1 %Mbwkav19-55TdhTezfyiHca Houston Healthcare NorthwestComment on above:Performed By: #### NORA, 6-3, LIVR, BMP #### [facility] ([id number]) [address] [place] [address] #### PABLO 32222-9 #### [facility] ([id number]) [address], [address] [place], [place] [address]Zuxxodxpoe (Bld) [Mass/Vol]12.3 g/eXHsazdd40.7-15.5PFirelands Regional Medical CenterComment on above:Performed By: #### NORA, 3015-3, LIVR, BMP #### [facility] ([id number]) [address] [place] [address] #### PABLO 70378-3 #### [facility] ([id number]) [address], [address] [place], [place] [address]GSHWLOXSJIY ABSOLUTE COUNT (10*3/UL) BY AUTOMATED COUNT0.5 10*3/uLLow1.0-3.5PFirelands Regional Medical CenterComment on above:Performed By: #### NORA, 3015-3, LIVR, BMP #### [facility] ([id number]) [address] [place] [address] #### PABLO 40021-0 #### [facility] ([id number]) [address], [address] [place], [place] [address]FGNYWVUMQYC RELATIVE PERCENT BY AUTOMATED COUNT5.3 %Normal [facility] Washington HospitalComment on above:Performed By: #### NORA, 3015-3, LIVR, BMP #### [facility] ([id number]) [address] [place] [address] #### PABLO 57624-9 #### [facility] ([id number]) [address], [address] [place], [place] [address]JJA (RBC) [Entitic mass]32.3 tsQjpoce10-90GgwIyoojx Washington HospitalComment on above:Performed By: #### CBCIsrrael, 3016-3, LIVR, BMP #### [facility] ([id number]) [address] [place] [address] #### PABLO 51448-9 #### [facility] ([id number]) [address], [address] [place], [place] [address]IFLL (RBC) [Mass/Vol]34.0 g/zLPswjaw07-59KviGwwcadHca Houston Healthcare NorthwestComment on above:Performed By: #### CBCA, 3016-3, LIVR, BMP #### [facility] ([id number]) [address] [place] [address] #### PABLO 15962-8 #### [facility] ([id number]) [address] [place], [place] [address]TEP (RBC) [Entitic vol]95 aKHdfgpn68-605AbvCeenzx Fremont HospitalComment on above:Performed By: #### CBCA, 3015-3, LIVR, BMP #### [facility] ([id number]) [address] [place] [address] #### PABLO 64600-9 #### [facility] ([id number]) [address], [address] [place], [place] [address]GYSAVJBSU ABSOLUTE COUNT (10*3/UL) BY AUTOMATED COUNT0.5 10*3/uL Normal0.0-0.9K[facility]tering Health HamiltonComment on above:Performed By: #### CBCA, 3016-3, LIVR, BMP #### [facility] ([id number]) [address] [place] [address] #### PABLO, 41206-4 #### [facility] ([id number]) [address], [address] [place], [place] [address]WZXJBLELW RELATIVE PERCENT BY AUTOMATED COUNT5.8 %Normal ProMSan Dimas Community HospitalComment on above:Performed By: #### CBCIsrrael, 3016-3, LIVR, BMP #### [facility] ([id number]) [address] [place] [address] #### PABLO, 29564-5 #### [facility] ([id number]) [address], [address] [place], [place] [address]WRWNGWNCEBM ABSOLUTE COUNT BY AUTOMATED COUNT8.4 10*3/uLHigh 1.5-6.6ProMedica Washington HospitalComment on above:Performed By: #### NORA, 3016- 3, LIVR, BMP #### [facility] ([id number]) [address] [place] [address] #### PABLO 22287-5 #### [facility] ([id number]) [address], [address] [place], [place] [address]BKAROWNLEWO RELATIVE PERCENT BY AUTOMATED COUNT87.5 %Normal [facility] Health HamiltonComselect specialty hospital on above:Performed By: #### NORA, 3016-3, LIVR, BMP #### [facility] ([id number]) [address] [place] [address] #### PABLO 74308-9 #### [facility] ([id number]) [address], [address] [place], [place] [address]Mklhpqvy mean volume (Bld) [Entitic vol]8.5 fLNormal7-12 [facility] Health HamiltonComment on above:Performed By: #### NORA, 3016-3, LIVR, BMP #### [facility] ([id number]) [address] [place] [address] #### PABLO, 90103-2 #### [facility] ([id number]) [address], [address] [place], [place] [address]Ensxnkeeb (Bld) [#/Vol]208 10*3/sZQoycgj926-001TplDbfkwuKettering Health HamiltonComment on above:Performed By: #### NORA, 6-3, LIVR, BMP #### [facility] ([id number]) [address] [place] [address] #### PABLO 51778-7 #### [facility] ([id number]) [address] [place] [address], [address] [place] [address]UPA COUNT3.80 X10E12/LNormal3.8-5.2PFirelands Regional Medical Center Comment on above:Performed By: #### NORA, 6-3, LIVR, BMP #### [facility] ([id number]) [address] [place] [address] #### PABLO 05065-9 #### [facility] ([id number]) [address] [place] [address], [address] [place] [address]RIK (Bld) [#/Vol]9.5 10*3/uLNormal4-11[facility] Comment on above:Performed By: #### NORA, 6-3, LIVR, BMP #### [facility] ([id number]) [address] [place] [address] #### PABLO, 06774-7 #### [facility] ([id number]) [address] [place] [address], [address] [place] [address]SEJ auto differentialon 83-03-0626Xsdjhyvnp (Bld) [#/Vol]0 10*3/uL0.0 - 0.2 10*3/uLOhioHealth Doctors Hospital SystemBasophils/100 WBC (Bld)0.3 % Cleveland ClinicDifferential cell count method Nom (Bld)AUTOMATED DIFFERENTIALOhioHealth Doctors Hospital SystemEosinophils (Bld) [#/Vol]0.1 10*3/uL0.0 - 0.4 10*3/uLProPeoples Hospital SystemEosinophils/100 WBC (Bld)0.6 %C[facility] ClinicErythrocyte distribution width (RBC) [Ratio]12.6 %11.5 - 15 %[facility] ClinicHematocrit (Bld) [Volume fraction]34.6 %Low35 - 47 %C[facility] ClinicHemoglobin (Bld) [Mass/Vol]11.8 g/dL11.7 - 15.5 g/dLCleveland ClinicInterpretation and review of laboratory resultsAbnormalCleveland ClinicLymphocytes (Bld) [#/Vol]0.8 10*3/uLLow1.0 - 3.5 10*3/uLCleveland ClinicLymphocytes/100 WBC (Bld)6.8 %[facility] ClinicMCH (RBC) [Entitic mass]32.5 pg27 - 34 [facility] HospitalMCHC (RBC) [Mass/Vol]34 g/dL32 - 36 g/dLCleveland ClinicMCV (RBC) [Entitic vol]96 fL80 - 100 fL [facility] ClinicMonocytes (Bld) [#/Vol]1 10*3/uLHigh0.0 - 0.9 10*3/uL [facility] ClinicMonocytes/100 WBC (Bld)7.7 %[facility] Neutrophils (Bld) [#/Vol]10.5 10*3/uLHigh1.5 - 6.6 10*3/uLCleveland ClinicNeutrophils/100 WBC (Bld)84.6 %[facility] ClinicPlatelet mean volume (Bld) [Entitic vol]9.1 fL7 - 12 [facility] NorthlandPlatelets (Bld) [#/Vol]204 10*3/uLCleveland ClinicRBC (Bld) [#/Vol]3.62 10*6/uLLow Cleveland ClinicWBC LM Ql (Sput)12.4HighCleveland ClinicCK TOTALon [id number] U/ATmysrc55-115EopDqnloeGuernsey Memorial HospitalComment on above: Performed By: #### CPK #### [facility] ([facility]) [address] [place] [address] VIRCK Totalon 58-48-4972VH [Catalytic activity/Vol]28 U/L24 - 170 U/LProMedica University Hospitals Elyria Medical Center SystemCT HIP RT WO CONTon 51-37-7011HT HIP RT WO CONTCT HIP RT WO [...] by Andrea Jimenez MD on 11/26/2024 5:29 PMNormalProAccess Hospital DaytonCT Hip - right WO contraston [id number] Health System Radiology Study observation (narrative)[facility] ClinicCT Hip - right WO contrastOrdered By: Andrea Jimenez on 80-99-0669NocFwhkhjCleveland Clinic Work Phone: FERRITINon 48-23-4007Bzddcsrk [Mass/Vol]32 ng/mLNormal 11-307ProAccess Hospital DaytonComment on above:Performed By: #### FERR #### [facility] ([facility] [place]) [address] [place] [address] VIRFOLATEon 77-64-9364KBSXY ACID>^25.0Normal>5.8ProAccess Hospital DaytonComment on above:Performed By: #### FOLI #### [facility] ([facility] [place]) [address] [place] [address] VIRFerritinon 56-04-5647Tpwzdxdu [Mass/Vol]32 ng/mL11 - 307 ng/mLOhioHealth Doctors Hospital SystemFolateon 67-85-0947Zwcgzd [Mass/Vol]ng/mL5.8 - PINF ng/mLProPeoples Hospital SystemIRON AND TIBCon 52-28-3743Qrdl [Mass/Vol]58 ug/dL Dtbveh13-522UnvTrkfikGuernsey Memorial HospitalComment on above:Result Comment: R-Specimen moderately hemolyzed, results increasedPerformed By: #### CBCA #### [facility] ([facility] [place]) [address] [place] [address] VIRIRON YKKVHEG169 ug/mFSeamxc107-463GaiMjihabGuernsey Memorial Hospital Comment on above:Performed By: #### CBCA #### [facility] ([facility] [place]) [address] [place] [address] VIRIRON ULFIPIYBFR38 % JPBEOCXPHBHlnftv81-72TvvClphhk Toledo HospitalComment on above:Performed By: #### CBCA #### [facility] ([facility] [place]) [address] [place] [address] VIRTransferrin [Mass/Vol]260 mg/eUPpjbtv057-059ZsdTupjwxGuernsey Memorial HospitalComment on above:Performed By: #### CBCA #### [facility] ([facility] [place]) [address] [place] [address] VIRIron and TIBCon 77-17-0604Qyxh [Mass/Vol]58 ug/dL50 - 170 ug/dLCleveland ClinicIron binding capacity [Mass/Vol]364 ug/dL250 - 425 ug/dLCleveland ClinicIron saturation [Mass fraction]16ProKettering Health HamiltonTransferrin [Mass or moles/Vol]260 mg/dL168 - 336 mg/dLCleveland ClinicNo Panel Informationon 25-68-3921VbmTbpgttCleveland ClinicInterpretation and review of laboratory resultsAbnormalCleveland ClinicInterpretation and review of laboratory resultsNormalCleveland ClinicProPeoples Hospital System [facility] SystemPREALBUMINon 56-15-0223Dhzhnyslkb [Mass/Vol]29 mg/dL Ygtvae39-37NiiFbbqjm Crook HospitalComment on above:Performed By: #### PAB #### [facility] ([facility] [place]) [address] [place], [place] [address] VIRPrealbumin [Mass/Vol]31 mg/sIIcmsud09-85FttZgebsh Washington HospitalComment on above:Performed By: #### CBCA, 3016-3, LIVR, BMP #### [facility] ([id number]) [address] [place] [address], [place] [address] #### HA1C, 66062-7 #### [facility] ([id number]) [address] [place], [place] [address]Pqqnqmxezqel 42-75-9748Yacepnfpip [place] [Mass/Vol]29 mg/dL18 - 45 mg/dLProPeoples Hospital SystemRETICULOCYTESon 04-27-1845BOOPFLXNCVDU COUNT1.5 % Normal0.4-2.2ProMed[facility] - AndersonComment on above:Performed By: #### RETIC #### [facility] ([facility]) [address] [place] [address] VIRReticulocyteson 97-84-1944Gqbeiiamwpbjvk and review of laboratory resultsNormalProPeoples Hospital SystemReticulocytes/100 RBC (Bld)1.5 % 0.4 - 2.2 %ProMedicChippewa City Montevideo Hospital SystemSODIUM, URINE, RANDOMon 89-68-0198Rhucmq (U) [Moles/Vol]49 mmol/LNormalProOhiohealth Berger Hospital HospitalComment on above:Performed By: #### CBCA #### [facility] ([facility]) [address] [place] [address] VIRSodium, urine, randomon 38-96-5789Pgsanz (U) [Moles/Vol]49 mmol/LProMedica Health SystemTYPE AND SCREENon 17-44-1743QPR_IGHEKLIgxoco ProMOhio Valley Surgical Hospital HospitalComment on above:Performed By: #### TSC #### [facility] ([facility]) [address] [place] [address] VIRRH_INTEPPositiveNormalProMedica Crook HospitalComment on above:Performed By: #### TSC #### [facility] ([facility]) [address] [place] [address] VIRABO_INTEPANormalProMedica Nelsonia HospitalComment on above: Performed By: #### NORA, 3016-3, LIVR, BMP #### [facility] ([id number]) [address] [place] [address], [place] [address] #### PABLO [id number] #### [facility] ([id number]) [address] [facility], [address] [place], [place] [address]RH_INTEPPositiveNormalMercy Health Perrysburg Hospital HospitalComment on above:Performed By: #### NORA, 3016-3, LIVR, BMP #### [facility] ([id number]) [address] [place] [address], [place] [address] #### PABLO [id number] #### [facility] ([id number]) [address] [facility], [address] [place], [place] [address]Ajlr and screen(includes indirect vikas)on 52-59-2051UIN and Rh group Nom (Bld)AProMedica Health SystemABO and Rh group Nom (Bld)Positive ProMFederal Correction Institution Hospital SystemBlood group antibody screen.cells I+II+III QlNegative ProMedica Health SystemProMedica Health SystemUREA RANDOM, URINEon 11-26-2024 URINE UREA NITROGEN,TZOPQC029 mg/dLNormalProOhiohealth Berger Hospital HospitalComment on above:Performed By: #### NORA #### [facility] ([facility]) [address] [place] [address] VIRURINALYSISon 10-33-7111Dzlwjuozh Ql (U)NegativeNormal NegativeProProtestant Hospitalca Crook HospitalComment on above:Order Comment: Urine received without preservative - delays in transport may affect results. Interpret with caution and clinical correlation is recommended.Performed By: #### CBCA #### [facility] ([facility]) [address] [place] [address] VIRBLOOD/HGBNegativeNormalNegativeOhioHealth Grant Medical Center Hospital Comment on above:Order Comment: Urine received without preservative - delays in transport may affect results. Interpret with caution and clinical correlation is recommended.Performed By: #### CBCA #### [facility] ([facility]) [address] [place] [address] VIRColor (U)YellowNormalYellowProOhiohealth Berger Hospital HospitalComment on above:Order Comment: Urine received without preservative - delays in transport may affect results. Interpret with caution and clinical correlation is recommended.Performed By: #### CBCA #### [facility] ([facility]) [address] [place] [address] VIRGlucose Ql (U)>1000 mg/dLAbnormalNegativeOhioHealth Grant Medical Center HospitalComment on above:Order Comment: Urine received without preservative - delays in transport may affect results. Interpret with caution and clinical correlation is recommended.Performed By: #### CBCA #### [facility] ([facility]) [address] [place] [address] VIRKetones Ql (U)NegativeNormalNegativeProOhiohealth Berger Hospital HospitalComment on above:Order Comment: Urine received without preservative - delays in transport may affect results. Interpret with caution and clinical correlation is recommended.Performed By: #### CBCA #### [facility] ([facility]) [address] [place] [address] VIRLeukocyte esterase Test strip Ql (U)SmallAbnormalNegative ProMedicWhite Hospital HospitalComment on above:Order Comment: Urine received without preservative - delays in transport may affect results. Interpret with caution and clinical correlation is recommended.Result Comment: High Concentrations of Glucose May Decrease the Reactivity of the Dipstick Leukocyte Test Pad.Performed By: #### CBCA #### [facility] ([facility]) [address] [place] [address] VIRNitrite Ql (U)NegativeNormalNegativeProAccess Hospital DaytonComment on above:Order Comment: Urine received without preservative - delays in transport may affect results. Interpret with caution and clinical correlation is recommended.Performed By: #### CBCA #### [facility] ([facility]) [address] [place] [address] VIRPH,URINE6.7Yvchuw5.0-8.5ProMedica [facility] Mercy Hospital - AndersonComment on above:Order Comment: Urine received without preservative - delays in transport may affect results. Interpret with caution and clinical correlation is recommended.Performed By: #### CBCA #### [facility] ([facility]) [address] [place] [address] VIRProtein Ql (U)70 mg/dLAbnormalNegativeGuernsey Memorial HospitalComselect specialty hospital on above:Order Comment: Urine received without preservative - delays in transport may affect results. Interpret with caution and clinical correlation is recommended.Performed By: #### CBCA #### [facility] ([facility]) [address] [place] [address] VIRR.B.CELLS<^0Fkimwp8-9MpjXqogvzWyandot Memorial HospitalComselect specialty hospital on above:Order Comment: Urine received without preservative - delays in transport may affect results. Interpret with caution and clinical correlation is recommended.Performed By: #### CBCA #### [facility] ([facility]) [address] [place] [address] VIRSpecific gravity (U) [Rel density]1.610Xvceul2.003-1.035 ProMed[facility] Hospital - AndersonComselect specialty hospital on above:Order Comment: Urine received without preservative - delays in transport may affect results. Interpret with caution and clinical correlation is recommended.Performed By: #### CBCA #### [facility] ([facility]) [address] [place] [address] VIRTURBIDITYHazyAbnormalClearProMedica Paul HospitalComselect specialty hospital on above:Order Comment: Urine received without preservative - delays in transport may affect results. Interpret with caution and clinical correlation is recommended.Performed By: #### CBCA #### [facility] ([facility]) [address] [place] [address] VIRUROBILINOGEN<1.1 eu/dLNormal<1.1 eu/dLProAccess Hospital DaytonComselect specialty hospital on above:Order Comment: Urine received without preservative - delays in transport may affect results. Interpret with caution and clinical correlation is recommended.Performed By: #### CBCA #### [facility] ([facility]) [address] [place] [address] VIRW.B.LBIBE0Yzyb8-6RrxDtnzdz[address] [place], [place] [address]Comselect specialty hospital on above: Order Comment: Urine received without preservative - delays in transport may affect results. Interpret with caution and clinical correlation is recommended. Performed By: #### CBCA #### [facility] ([facility]) [address] [place] [address] VIRURINE CREATININE,RANDOMon 71-77-6373JGFUY CREATININE,RDM 72.60 mg/dLNoMarion HospitalComselect specialty hospital on above:Performed By: #### CBCA #### [facility] ([facility]) [address] [place] [address] VIRUrea random, urineon 08-54-4324Ezmr nitrogen (24H U) [Mass/Vol]572 mg/dLVermont Psychiatric Care HospitalMedica Health SystemUrinalysisOrdered By: Chris Rodriguez on 87-76-7886Zveefthca Ql (U)NegativeNegativeProMedica Health SystemColor (U)Yellow YellowProMedica Health SystemGlucose (U) [Mass/Vol]mg/dLAbnormalNegative Pro[facility] Health SystemHemoglobin Auto test strip Ql (U)NegativeNegative [facility] SystemInterpretation and review of laboratory resultsAbnormal ProMedica Health SystemKetones (U) [Mass/Vol]NegativeNegativeProMedica Health SystemLeukocyte esterase Auto test strip Ql (U)SmallAbnormalNegativeCleveland ClinicNitrite Auto test strip Ql (U)NegativeNegativeCleveland ClinicpH (U)6.5 [pH]5.0 - 8.5PAshtabula County Medical CenterProtein (U) [Mass/Vol]70 mg/dLAbnormalNegativeCleveland ClinicRBC Auto (Urine sed) [#/Area]0 - 5 [facility] Medical Centerpecific gravity Refractometry automated (U) [Rel density]1.011.003 - 1.035Cleveland ClinicTurbidity Ql (U)HazyAbnormal ClearCleveland ClinicUrobilinogen Qn (U){Kaushik'U}/dL<1.1 eu/dLCleveland ClinicWBC Auto (Urine sed) [#/Area]8High0 - 5PAshtabula County Medical Center ProMedicKettering Health – Soin Medical CenterProPeoples Hospital SystemUrine Creatinine,Rdmon 11-26-2024 Creatinine (U) [Mass/Vol]72.6 mg/dLCleveland ClinicVITAMIN B12on 71-26-1655Gcpoqpasq (Vitamin B12) [Mass/Vol]275 pg/uZQpidbc918-309ClsUkywqq [place] HospitalComment on above:Performed By: #### B12 #### [facility] ([facility]) [address] [place] [address] VIRVITAMIN D 25 HYDROXYon 10-35-3610EOHPROH D 25 HYD TOT27.1 ng/mLLow30.0-100.0Guernsey Memorial HospitalComment on above:Order Comment: Vitamin D status 25 [place] Vitamin D Deficiency <20 ng/mLInsufficiency 20-29 ng/mLSufficiency 30-100 ng/mLToxicity >100 ng/mLNOTE: A pediatric reference range has not been established by the protective service specialist of this kit. The [place] [employer] recommends a Vitamin D level of = or >20ng/mL in infants and children.Performed By: #### CBCA #### [facility] ([facility]) [address] [place] [address] VIRVITAMIN D 25 HYD TOT27.2 ng/mLLow30.0-100.0Kettering Health HamiltonComment on above:Order Comment: Vitamin D status 25 [place] Vitamin D Deficiency <20 ng/mLInsufficiency 20-29 ng/mLSufficiency 30-100 ng/mLToxicity >100 ng/mLNOTE: A pediatric reference range has not been established by the protective service specialist of this kit. The [place] [employer] recommends a Vitamin D level of = or >20ng/mL in infants and children.Performed By: #### CBCA, 3016-3, LIVR, BMP #### [facility] ([id number]) [address] [place] [address], [place] [address] #### HA1C, 02703-6 #### [facility] ([id number]) [address], [address] [place], [place] [address]Tvldkri B12on 04-57-1540Lbtghkrre (Vitamin B12) [Mass/Vol]275 pg/mL180 - 914 pg/mLCleveland ClinicVitamin D 25 hydroxyon - hydroxyvitamin D3 [Mass/Vol]27.1 ng/mLLow30.0 - 100.0 ng/mLOhioHealth Doctors Hospital SystemSt. Charles Hospital Health SystemXR HIP RT 2-3 VIEWS W OR WO PELVISon 66-74-7017AA HIP RT 2-3 VIEWS W OR WO [...] by Best Clark MD on 11/26/2024 1:09 PMNormalKettering Health HamiltonHEMOGLOBIN A1Con 42-90-7974Pnbzisi [Mass/Vol]154 mg/dLNormalProHca Houston Healthcare NorthwestComment on above:Performed By: #### HA1C #### [facility] ([facility]) [address] [place] [address] NAIDoN9q (Bld) [Mass fraction]7.0 %High4.4-5.6ProHca Houston Healthcare NorthwestComment on above:Result Comment: ADA Guidelines Result HgbA1c Normal : less than 5.7 % Prediabetes : 5.7 % to 6.4 % Diabetes : > 6.4 % Use with caution in patients with abnormal hemoglobin variants as the half-life of red blood cells and in vivo glycation rates are affected.Performed By: #### HA1C #### [facility] ([facility]) 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 What would you like to do?NormalTuscarawas Hospital37on 76-61-9860619. Increase furosemide to 40 mg once daily. 2. Obtain BMP blood test in 1 month. 3. Follow-up in 6 months.NormalTuscarawas HospitalOffice Visiton 20-07-5423Avvehh-up [id number] Rivka Turner 1945 F Date Provider Department Center 07/21/2024 OBED MARCOS BH CARD [facility] Family History Problem Relation Age of Onset Breast cancer Mother Stroke Father Family Status - Relation Status Age at Mother Father Level of Service:13160 PA OFFICE/OUTPATIENT ESTABLISHED MOD MDM 30 [facility] HospitalOrders Onlyon 16-62-4968Loeqyb [id number] Janet Turnerjustin Arcos 1945 F Date Provider Department Center 07/18/2024 [id number], HISTORICAL BH CARD [facility] Family History Problem Relation Age of Onset Breast cancer Mother Stroke Father Family Status - Relation Status Age at Mother FatherNormalUniKindred Hospital DaytonAmbulatory Visit Summaryon 32-90-2352Atxrnxjukp Visit SummaryAmbulatory Visit Summary RIVKA TURNER Isrrael [...] MUÑIZ When: Where: [address] [place] [address] Medications What How Much When Why Instructions New sulfamethoxazole-trimethoprim (Bactrim D.S. 800 mg-160 mg Tab) 1 Tablets By Mouth Every 12 hours Pain with urination Acute cystitis Duration: 3 Days drink plenty of fluids - Make sure you provideurine specimen prior to taking 1st dose Pickup at [facility]/pharmacy #[id number] Unchanged acetaminophen-hydrocodone (acetaminophen-hydrocodone 325 mg-5 mg oral [...] as needed for for sleep Pharmacy Information [facility]/pharmacy #[id number]: [address] [place], [place] [phone] Allergies Byetta Prefilled Pen (Nausea) Cleocin HCl [...] Vitamin D deficiency Historic (more content not included)...[facility] Ambulatory Visit SummaryAmbulatory Visit Summary RIVKA [...] BARRIOS, CLINTON MUÑIZ When: Where: [address] [place] [address] Medications What How Much When Why Instructions New sulfamethoxazole-trimethoprim (Bactrim D.S. 800 mg-160 mg Tab) 1 Tablets By Mouth Every 12 hours Pain with urination Acute cystitis Duration: 3 Days drink plenty of fluids - Make sure you provideurine specimen prior to taking 1st dose Pickup at [facility]/pharmacy #[id number] Unchanged acetaminophen-hydrocodone (acetaminophen-hydrocodone 325 mg-5 mg oral [...] as needed for for sleep Pharmacy Information [facility]/pharmacy #[id number]: [address], [place] [phone] Allergies Byetta Prefilled Pen (Nausea) Cleocin HCl [...] Vitamin D deficiency Historic (more content not included)...[facility] Medicine Office/Clinic Noteon 77-57-1993Zbzekd Medicine Office/Clinic NoteFasouth shore hospital Medicine Office/Clinic Note Chief Complaint UTI [...] created with voice recognition software. Occasional wrong-word or???ymvep-j-vget??? substitutions may have occurred due to the [...] a urine sample and [facility]. Review of Systems PHQ Score Initial [...] urine specimen prior to taking 1st dose, [facility]/pharmacy #[id number], 162, cm, 07/12/24 14:22:00 EDT, Height/Length Dosing, 79.6, kg, 07/12/24 14:22:00 ED... UA with Cult Rflx Pain with urination (R30.9: Painful micturition, unspecified) Ordered: sulfamethoxazole-trimethoprim, 1 tab(s), Oral, q12hr for 3 day(s), 6 tab(s), Refill(s) 0, drink plenty of fluids - Make sure you provide urine specimen prior to taking 1st dose, [facility]/pharmacy #[id number], 162, cm, 07/12/24 14:22:00 EDT, Height/Length Dosing, 79.6, kg, 07/12/24 14:22:00 ED... Follow-up With When Contact Information JOHN BARRIOS, AMADOR, FAM [address] [place] [address] Additional Instructions: Patient Education Urinary Tract Infection, Adult, Jkqa-wi-Tyhy Problem List/Past Medical History Ongoing Bile reflux gastritis BMI 33.0-33.9,adult Bradycardia CAD (coronary artery disease) (more content not included)...[facility] HospitalComment on above: Result Comment: Electronically Signed By: Vielka You\.br\Date and Time Signed: 07/12/24 15:17 EDTURINALYSISon 53-34-6165Yuqxhaknj Ql (U)NegativeNormal NegativeKettering Health HamiltonComment on above:Performed By: #### UA #### [facility] ([address] [address] VIRBLOOD/HGBNegativeNormalNegativeKettering Health Hamilton Comment on above:Performed By: #### UA #### [facility] ([address] [address] VIRColor (U)YellowNormalYellow, ColorlessKettering Health HamiltonComment on above:Performed By: #### UA #### [facility] ([address] [address] VIRGlucose Ql (U)250 mg/dLNormalNegative, 250 mg/dLProHca Houston Healthcare NorthwestComment on above:Performed By: #### UA #### [facility] ([address] [address] VIRKetones Ql (U)NegativeNormalNegativeProHca Houston Healthcare NorthwestComment on above:Performed By: #### UA #### [facility] ([address] [place] [address] VIRLeukocyte esterase Test strip Ql (U)TraceAbnormalNegative Kettering Health HamiltonComment on above:Performed By: #### UA #### [facility] ([address] [address] VIRMUCOUSPresentAbnormalNoneProMedLos Angeles Community HospitalComment on above:Performed By: #### UA #### [facility] ([address] [place] [address] VIRNitrite Ql (U)NegativeNormalNegativeProHca Houston Healthcare NorthwestComment on above:Performed By: #### UA #### [facility] ([address] [address] VIRPH,URINE6.3Ftiaci8.0-8.5PBayne Jones Army Community Hospitalica Washington HospitalComment on above:Performed By: #### UA #### [facility] ([address] [place] [address] VIRProtein Ql (U)100 mg/dLAbnormalNegativeProHca Houston Healthcare NorthwestComment on above:Performed By: #### UA #### [facility] ([address] [address] VIRR.B.EVVYZ0Dsfyoq9-2BcqXplrvg Fremont HospitalComment on above:Performed By: #### UA #### [facility] ([address] [place] [address] VIRSpecific gravity (U) [Rel density]1.035Fzfkmi4.003-1.035 Kettering Health HamiltonComment on above:Performed By: #### UA #### [facility] ([address] [address] VIRSQUAMOUS GZUWNMIELH55Gxxs0-1XetNafzhh [facility] Comment on above:Performed By: #### UA #### [facility] ([address] [place] [address] VIRTURBIDITYCloudyAbnormalClearKettering Health Hamilton Comment on above:Performed By: #### UA #### [facility] ([address] [address] VIRUROBILINOGEN0.2 eu/dLNormal0.2 eu/dL, 1.0 eu/dLKettering Health HamiltonComment on above:Performed By: #### UA #### [facility] ([address] [address] VIRW.B.EXEMB33Dxuu3-5DerQiykfiFirelands Regional Medical CenterComment on above:Performed By: #### UA #### [facility] ([address] [address] VIRURINE CULTUREon 32-01-7186Qkhtwefh identified Cx Nom (U) CULTURE RESULTS ESCHERICHIA [...] <=^16.0 F Trimethoprim + Sulfamethoxazole S <=^1.0 FSusceptibleKettering Health Hamilton Comment on above:Performed By: #### UC #### [facility] ([facility]) [address] [place] [address] VIRBASIC METABOLIC PANLon 29-43-1796Rfnge gap [Moles/Vol]10 mmol/LNormal5-15Kettering Health HamiltonComment on above:Performed By: #### NORA 3015-3, LIVR, BMP #### [facility] ([id number]) [address] [place] [address] #### PABLO [id number] #### [facility] ([id number]) [address], [address] [place], [place] [address]Xjjislg [Mass/Vol]9.2 mg/dLNormal8.5-10.5PFirelands Regional Medical CenterComment on above:Performed By: #### NORA 3015-3, LIVR, BMP #### [facility] ([id number]) [address] [place] [address] #### Karan SHAH31-1 #### [facility] ([id number]) [address], [address] [place], [place] [address]Zywuigjo [Moles/Vol]102 mmol/ZVfqdhz13-732CjxQyevdrHca Houston Healthcare NorthwestComment on above:Performed By: #### NORA 3015-3, LIVR, BMP #### [facility] ([id number]) [address] [place] [address] ###Leroy SHAH [id number] #### [facility] ([id number]) [address] [place], [place] [address] [Moles/Vol]25 mmol/EFehbbd86-07SflIutbxxFirelands Regional Medical Center Comment on above:Performed By: #### NORA 3016-3, JOHNNY SERRANO #### [facility] ([id number]) [address] [place] [address] #### PABLO [id number] #### [facility] ([id number]) [address] [place], [place] [address]Waksxeanfe [Mass/Vol]1.42 mg/dLHigh0.40-1.00Kettering Health HamiltonComment on above:Result Comment: METHOD TRACEABLE TO IDMS STANDARD Performed By: #### NORA 3, JOHNNY SERRANO #### [facility] ([id number]) [address] [place] [address] #### PABLO [id number] #### [facility] ([id number]) [address] [facility], [address] [place], [place] [address]UWL/1.73 sq M.predicted among non-blacks MDRD (S/P/Bld) [Vol rate/Area]38 mL/min/{1.73_m2}Low>59ProHca Houston Healthcare NorthwestComment on above: Result Comment: Reported eGFR is based on the CKD-EPI 2020 equation that does not use a race coefficient.Performed By: #### NORA 3, ZACH BMP #### [facility] ([id number]) [address] [place] [address] #### PABLO [id number] #### [facility] ([id number]) [address] [place], [place] [address]Tmmtihr [Mass/Vol]261 mg/bDZkao69-34QmkLgvzusHca Houston Healthcare Northwest Comment on above:Performed By: #### NORA 3015-3, LIVEva, BMP #### [facility] ([id number]) [address] [place] [address] #### PABLO [id number] #### [facility] ([id number]) [address] [facility], [address] [place], [place] [address]Jgexvspix [Moles/Vol]3.7 mmol/LNormal3.5-5.0ProHca Houston Healthcare NorthwestComment on above:Performed By: #### NORA 6-3, LIVR, BMP #### [facility] ([id number]) [address] [place] [address] #### PABLO [id number] #### [facility] ([id number]) [address] [address] SYSTEM, [address] [place], [place] [address]Mejnkb [Moles/Vol]137 mmol/FAouvvg933-664EkpMkqrty Fremont HospitalComment on above:Performed By: #### NORA 6-3, LIVR, BMP #### [facility] ([id number]) [address] [place] [address] 48718 ###Leroy SHAH 90742-0 #### [facility] ([id number]) [address] [facility], [address] [place], [place] [address]Tqyy nitrogen [Mass/Vol]28 mg/dLHigh5-27ProHca Houston Healthcare NorthwestComment on above:Performed By: #### NORA 3016-3, LIVR, BMP #### [facility] ([id number]) [address] [place] [address] 91798 #### PABLO 73168-4 #### [facility] ([id number]) [address] [facility], [address] [place], [place] [address]KHC AND AUTO DIFFon 17-13-2397CBJLJSGF BASOPHIL0.1 X10E9/LNormal 0.0-0.2ProMedica Washington HospitalComment on above:Performed By: #### NORA 6- 3, LIVR, BMP #### [facility] ([id number]) [address] [place] [address] 85453 #### PABLO 61286-6 #### [facility] ([id number]) [address] [place] [address], [address] [place], [place] [address]QMZMZUUA NEUTROPHIL4.9 X10E9/LNormal1.5-6.6ProHca Houston Healthcare NorthwestComment on above:Performed By: #### NORA, 3015-3, LIVR, BMP #### [facility] ([id number]) [address] [place] [address] 30086 #### PABLO 97063-4 #### [facility] ([id number]) [address] [place] [address], [address] [place] [address]Oiotklfop/100 WBC (Bld)1.1 %[facility] Comment on above:Performed By: #### NORA, 3015-3, LIVR, BMP #### [facility] ([id number]) [address] [place] [address] 48132 #### PABLO 62709-0 #### [facility] ([id number]) [address] [place] [address], [address] [place], [place] [address]Roanghixswz (Bld) [#/Vol]0.3 10*3/uLNormal0.0-0.4Kettering Health HamiltonComment on above:Performed By: #### NORA, 3015-3, LIVR, BMP #### [facility] ([id number]) [address] [place] [address] #### PABLO 79779-5 #### [facility] ([id number]) [address] [place] [address], [address] [place], [place] [address]Mjokrqovziv/100 WBC (Bld)4.2 %[facility] Comment on above:Performed By: #### NORA, 3015-3, LIVR, BMP #### [facility] ([id number]) [address] [place] [address] 88612 #### PABLO 76831-5 #### [facility] ([id number]) [address], [address] [place], [place] [address]Mgcivwixcus distribution width (RBC) [Ratio]13.1 %Normal 11.5-15.0Kettering Health HamiltonComment on above:Performed By: #### NORA 6-3, LIVR, BMP #### [facility] ([id number]) [address] [place] [address] 54185 #### PABLO 86994-4 #### [facility] ([id number]) [address] [facility], [address] [place], [place] [address]Nfauhpsbmv (Bld) [Volume fraction]36.8 %Lnzzcz78-46FlaOyrcinHca Houston Healthcare NorthwestComment on above:Performed By: #### NORA 6-3, LIVR, BMP #### [facility] ([id number]) [address] [place] [address] 44159 #### PABLO 36942-2 #### [facility] ([id number]) [address] [facility], [address] [place], [place] [address]Xwbuqsfdth (Bld) [Mass/Vol]12.2 g/nSYpoode16.7-15.5PFirelands Regional Medical CenterComment on above:Performed By: #### NORA, 6-3, LIVR, BMP #### [facility] ([id number]) [address] [place] [address] 13562 #### PABLO 00321-6 #### [facility] ([id number]) [address] [facility], [address] [place], [place] [address]Mivkcxtcasp (Bld) [#/Vol]1.0 10*3/uLNormal1.0-3.5PFirelands Regional Medical CenterComment on above:Performed By: #### CBCIsrrael, 3016-3, LIVR, BMP #### [facility] ([id number]) [address] [place] [address] 45363 #### PABLO 86211-8 #### [facility] ([id number]) [address], [address] [place], [place] [address]Imblbztjtgb/100 WBC (Bld)14.0 %NormalKettering Health Hamilton Comment on above:Performed By: #### CBCIsrrael, 3015-3, LIVR, BMP #### [facility] ([id number]) [address] [place] [address] #### PABLO 64259-4 #### [facility] ([id number]) [address], [address] [place], [place] [address]QMX (RBC) [Entitic mass]30.3 mhItgnze95-77DqfQbcjjaHca Houston Healthcare NorthwestComment on above:Performed By: #### CBCIsrrael, 3015-3, LIVR, BMP #### [facility] ([id number]) [address] [place] [address] 94114 #### PABLO 11640-4 #### [facility] ([id number]) [address], [address] [place], [place] [address]XYFD (RBC) [Mass/Vol]33.3 g/cPSesymz44-49GsiNxnhorHca Houston Healthcare NorthwestComment on above:Performed By: #### CBCIsrrael, 3016-3, LIVR, BMP #### [facility] ([id number]) [address] [place] [address] 60525 #### PABLO 85956-2 #### [facility] ([id number]) [address], [address] [place], [place] [address]BHU (RBC) [Entitic vol]91 eGVsyvxh59-821FykKmjxjl Nelsonia HospitalComment on above:Performed By: #### NORA, 3015-3, LIVR, BMP #### [facility] ([id number]) [address] [place] [address] 92710 #### PABLO 23460-0 #### [facility] ([id number]) [address], [address] [place], [place] [address]Bqtlgwsxq (Bld) [#/Vol]0.6 10*3/uLNormal0-0.9ProHca Houston Healthcare NorthwestComment on above:Performed By: #### NORA, 3015-3, LIVR, BMP #### [facility] ([id number]) [address] [place] [address] 05188 #### PABLO 16353-1 #### [facility] ([id number]) [address], [address] [place], [place] [address]Jehulrhlu/100 WBC (Bld)9.2 %[facility] Comment on above:Performed By: #### NORA, 3015-3, LIVR, BMP #### [facility] ([id number]) [address] [place] [address] 53469 #### PABLO 39650-7 #### [facility] ([id number]) [address], [address] [place], [place] [address]Afivroknlgc/100 WBC (Bld)71.5 %[facility] Comment on above:Performed By: #### NORA, 3015-3, LIVR, BMP #### [facility] ([id number]) [address] [place] [address]01 #### PABLO 38064-0 #### [facility] ([id number]) [address], [address] [place], [place] [address]Clyaxxmz mean volume (Bld) [Entitic vol]9.6 fLNormal7-12 ProMSan Dimas Community HospitalComment on above:Performed By: #### NORA 3, LIVEva, BMP #### [facility] ([id number]) [address] [place] [address] 13286 #### PABLO 70640-2 #### [facility] ([id number]) [address] [facility], [address] [place], [place] [address]Ejohtglpj (Bld) [#/Vol]241 10*3/fXWipsxq299-819IjqMskcpb Fremont HospitalComment on above:Performed By: #### NORA 3, LIVEva, BMP #### [facility] ([id number]) [address] [place] [address] 26751 #### PABLO 46233-6 #### [facility] ([id number]) [address] [facility], [address] [place], [place] [address]VOP COUNT4.04 X10E12/LNormal3.80-5.20[facility] Comment on above:Performed By: #### NORA 3, LIVR, BMP #### [facility] ([id number]) [address] [place] [address] 19933 #### PABLO 77833-1 #### [facility] ([id number]) [address] [facility], [address] [place], [place] [address]SOT (Bld) [#/Vol]6.8 10*3/uLNormal4.0-11.0ProHca Houston Healthcare NorthwestComment on above:Performed By: #### NORA, 3, LIVR, BMP #### [facility] ([id number]) [address] [place] [address] 91382 #### PABLO 27400-9 #### [facility] ([id number]) [address] [facility], [address] [place], [place] [address]OBT A1C (GLYCO-HGB)on 13-69-8648Vuqspqw [Mass/Vol]246 mg/dL NormalProHca Houston Healthcare NorthwestComment on above:Performed By: #### NORA 6- 3, ZACH, BMP #### [facility] ([id number]) [address] [place] [address] 39672 #### PABLO 63037-4 #### [facility] ([id number]) 0 [facility], [address] [place], [place] [address]QdD4t (Bld) [Mass fraction]10.2 %High4.4-5.6ProHca Houston Healthcare NorthwestComment on above:Result Comment: NOTE ADA Guidelines Result HgbA1c Normal : less than 5.7 % Prediabetes : 5.7 % to 6.4 % Diabetes : > 6.4 % Use with caution in patients with abnormal hemoglobin variants as the half-life of red blood cells and in vivo glycation rates are affected.Performed By: #### NORA 63, ZACH BMP #### [facility] ([id number]) [address] [place] [address] 33366 #### PABLO 73253-1 #### [facility] ([id number]) [facility]0 [facility], [address] [place], [place] [address]AVPVP PANELon 71-96-8321Osqeohn [Mass/Vol]3.2 g/dLNormal3.2-5.3 ProMSan Dimas Community HospitalComment on above:Performed By: #### NORA 3, LIVR, BMP #### [facility] ([id number]) [address] [place] [address] 24542 #### PABLO 20945-6 #### [facility] ([id number]) [address] [place] [address], [address] [place] [address]OJL [Catalytic activity/Vol]62 U/DPbbgpx00-859DhfKxsuzdKettering Health HamiltonComment on above:Performed By: ###Leroy MELENDEZ 6-3, LIVR, BMP #### [facility] ([id number]) [address] [place] [address] 87829 #### PABLO 05791-2 #### [facility] ([id number]) [address] [place] [address], [address] [place], [place] [address]WVE [Catalytic activity/Vol]23 U/LNormal0-31PFirelands Regional Medical CenterComment on above:Performed By: #### NORA 6-3, LIVR, BMP #### [facility] ([id number]) [address] [place] [address] 41492 ###Leroy SHAH 43462-3 #### [facility] ([id number]) [address] [place] [address], [address] [place] [address]TFG [Catalytic activity/Vol]18 U/LNormal0-41Kettering Health HamiltonComment on above:Performed By: ###Leroy MELENDEZ 6-3, LIVR, BMP #### [facility] ([id number]) [address] [place] [address] 15421 #### PABLO 19099-7 #### [facility] ([id number]) [address] [place] [address], [address] [place], [place] [address]Yxbdqvdgw [Mass/Vol]0.9 mg/dLNormal0.3-1.2ProMedLos Angeles Community HospitalComment on above:Performed By: ###Leroy MELENDEZ 6-3, LIVR, BMP #### [facility] ([id number]) [address] [place] [address] 26652 #### PABLO 47684-3 #### [facility] ([id number]) [address] [place] [address], [address] [place], [place] [address]Siotuxhbn.direct [Mass/Vol]0.1 mg/dLNormal0.0-0.4ProHca Houston Healthcare NorthwestComment on above:Performed By: #### NORA, 3016-3, LIVR, BMP #### [facility] ([id number]) [address] [place] [address] 00307 #### PABLO 98592-1 #### [facility] ([id number]) [address] [place] [address], [address] [place], [place] [address]Fadufaf [Mass/Vol]6.6 g/dLNormal6.0-8.0ProHca Houston Healthcare NorthwestComment on above:Performed By: #### NORA 6-3, LIVR, BMP #### [facility] ([id number]) [address] [place] [address] 56318 #### PABLO 88498-4 #### [facility] ([id number]) [address] [place] [address], [address] [place], [place] [address]Mewqk 1996 panelon 95-66-9058Jdbojlzjhkz [Mass/Vol]156 mg/dL Dxlpts893-345EcmJdmwezHca Houston Healthcare NorthwestComment on above:Performed By: #### NORA, 6-3, LIVR, BMP #### [facility] ([id number]) [address] [place] [address] 26886 #### PABLO 20593-0 #### [facility] ([id number]) [address] [place] [address], [address] [place], [place] [address]Jegjhbjqedh in HDL [Mass/Vol]59 mg/dLNormal>39ProHca Houston Healthcare NorthwestComment on above:Result Comment: HDL <40 mg/dL - High Risk HDL > or = 40mg/dL- Desirable HDL >60 mg/dL - Negative Risk Performed By: #Juana MELENDEZ, 3016-3, LIVEva, BMP #### [facility] ([id number]) [address] [place] [address] ##Ant SHAH 07807-6 #### [facility] ([id number]) [address], [address] [place], [place] [address]Butcbvcimye in LDL [Mass/Vol]66 mg/dLNormal<130ProHca Houston Healthcare NorthwestComment on above:Result Comment: LDL <100 mg/dL - Desirable LDL >160 mg/dL - High Risk Performed By: #Juana MELENDEZ, 6-3, LIVR, BMP #### [facility] ([id number]) [address] [place] [address]492 ##Ant SHAH 67119-7 #### [facility] ([id number]) [address], [address] [place], [place] [address]Nvchzfnzfiz in VLDL [Mass/Vol]31 mg/dLHigh0-30ProHca Houston Healthcare NorthwestComment on above:Performed By: #Juana MELENDEZ 6-3, LIVR, BMP #### [facility] ([id number]) [address] [place] [address] 85915 ##Ant SHAH 62376-7 #### [facility] ([id number]) [address] [facility], [address] [place], [place] [address]KUVOAXAWHTC:HDL2.7Lufcli7.0-5.0ProHca Houston Healthcare NorthwestComment on above:Performed By: #Juana MELENDEZ 6-3, LIVR, BMP #### [facility] ([id number]) [address] [place] [address], [place] [address] #### PABLO 56298-4 #### [facility] ([id number]) [address] [facility], [address] [place], [place] [address]Jwuqpdnohwpa [Mass/Vol]156 mg/xJZptj42-014EhwDzicdpHca Houston Healthcare NorthwestComment on above:Performed By: #### NORA, 6-3, LIVR, BMP #### [facility] ([id number]) [address] [place] [address], [place] [address] #### PABLO 65409-3 #### [facility] ([id number]) [address] [facility], [address] [place], [place] [address]EPLXIACJAHXN - ALBUMIN:CREATININE URINE RATIOon 03-19-2024 ALB/CREAT BEEJM1531.3 mg/g creatHigh0.0-30.0ProHca Houston Healthcare NorthwestComment on above:Performed By: #### SHAY #### [facility] ([id number]) [address] [facility], [address] [place], [place] [address]Ergthwy DL <= 20 mg/L (U) [Mass/Vol]243.1 mg/dLHigh0.0-1.9 ProMedica Washington HospitalComment on above:Performed By: ###Leroy DAY #### [facility] ([id number]) [address] [place] [address], [address] [place], [place] [address]QDAAX CREAT66.27 mg/dLNormalProHca Houston Healthcare NorthwestComment on above:Performed By: #### SHAY #### [facility] ([id number]) [address] [facility], [address] [place], [place] [address]UVE Qnon 94-77-1617PTF5.19 uIU/mLNormal0.49-4.67ProHca Houston Healthcare NorthwestComment on above:Performed By: #### NORA, 6-3, LIVR, BMP #### [facility] ([id number]) [address] [facility] [address] [place] [address] #### HA1C, 71922-7 #### [facility] ([id number]) [address] [facility], [address] [place], [place] [address]KXU CBC WITH AUTO DIFFon 81-21-4609MUFOZPEGN ABSOLUTE ZFYV7YPLA HealthcareBasophils/100 WBC (Bld)0.4 %0.2 - 2.0 %NOMS HealthcareEosinophils/100 WBC (Bld)1.8 %0.9 - 7.0 %NOMS HealthcareErythrocyte distribution width (RBC) [Ratio]12.4 %11.0 - 15.0 %[facility]OMS HealthcareHematocrit (Bld) [Volume fraction]37.5 %36.0 - 48.0 %[facility] HealthcareHemoglobin (Bld) [Mass/Vol]12 g/dL12.0 - 16.0 g/dL NOM[facility] HealthcareIMMATURE GRANULOCYTES ABS AUTO0.03NOMS HealthcareImmature granulocytes/100 WBC (Bld)0.3 %0.0 - 0.5 %NOM HealthcareInterpretation and review of laboratory resultsAbnormalNOWV HealthcareLYMPHOCYTES ABSOLUTE JSML7Pil NOMS HealthcareLymphocytes/100 WBC (Bld)11.2 %Low20.5 - 60.0 %[facility] CenterH (RBC) [Entitic mass]30.6 pg26.7 - 34.0 pgNOSoutheast Missouri HospitalHC (RBC) [Mass/Vol]32 g/dL29.9 - 35.2 g/dLUniversity Health Lakewood Medical CenterV (RBC) [Entitic vol]95.7 fL81.0 - 99.0 fL N[facility] HealthcareMONOCYTES ABSOLUTE AUTO0.7NOMS HealthcareMonocytes/100 WBC (Bld) 7.9 %1.7 - 12.0 %NOMS HealthcareNEUTROPHILS ABSOLUTE XNIA1HsnpZFIE Healthcare Neutrophils/100 WBC (Bld)78.4 %High43.0 - 75.0 %[facility]OMS HealthcarePlatelet mean volume (Bld) [Entitic vol]10.6 fL9.5 - 13.[address]LNOMercy Hospital South, formerly [address] Anthony's Medical CenterTB EO #0.2NOMS HealthcareTBH LZU866MOOP HealthcareTBH RBC3.92LowNOMS HealthcareTBH XOY8VXOT HealthcareCLINISYNCNOU MEDICAL [facility]ENTER [facility] HealthcareURINE CULTURE, ROUTINEon 08-70-9243Cmwlpram identified Cx Nom (U) Urine Culture, Routine NOMS HealthcareBacteria identified Cx Nom (U)No growthNOMS HealthcareBacteria identified Cx Nom (U)Performed at: CB - [facility] HealthcareBacteria identified Cx Nom (U)[address] [place], [place] [id number] Healthcare Bacteria identified Cx Nom (U)Curb Setter Helper: Best Garcia PhD, Phone: [phone] Medical CenterCLFreeman Orthopaedics & Sports MedicineMRI BRAIN WO W CONon 07-04-2022 MRI BRAIN [...] Electronically authenticated by: LISSETTE VILLALOBOS Date: 2022-07-04 09:08[facility] CampusCREATININEon 61-63-3799Zcsaexpbmu [Mass/Vol]1.87 mg/dL Critically high0.55-1.02[facility] Parma Medical CenterComment on above:Performed By: #### UARMICR #### [facility] [address] [address] [address] Gasper RankinGFR-AF NUBVIELQ11 mL/min/1.04z1Jjlqrjsdsp low>=60The [facility] HospitalComment on above:Performed By: #### UARMICR #### [facility] [address] [address] [address] Gasper RankinGFR-NON AF WTLWVVSO70 mL/min/1.53v9Lhguhulqvd low>=60The [facility] HospitalComment on above:Performed By: #### UARMICR #### [facility] [address] [place] [address] Dr. Gasper Dailey (CLEAN/CATCH) MICROSCOPIC IF INDICATEon 28-27-4982Feqvplozl Ql (U)NegativeNormalNEGATIVEUniversity Hospitals Parma Medical CenterComment on above:Performed By: #### UARMICR #### [facility] [address] [place] [address] Dr. Gasper GarberClarity (U)CLEARNormalCLEARUniversity Hospitals Parma Medical CenterComment on above: Performed By: #### UARMICR #### [facility] [address] [place] [address] Dr. Gasper Webster (U)LT. YELLOWNormalYELLOWUniversity Hospitals Parma Medical CenterComment on above:Performed By: #### UARMICR #### [facility] [address] [place] [address] Dr. Gasper GarberGlucose Ql (U)NegativeNormalNEGATIVEUniversity Hospitals Parma Medical CenterComment on above:Performed By: #### UARMICR #### [facility] [address] [address] [address] Gasper GarberHemoglobin Ql (U)NegativeNormalNEGATIVEMansfield Hospital on above:Performed By: #### UARMICR #### [facility] [address] [place] [address] Dr. Gasper GarberKetones Ql (U)NegativeNormalNEGATIVEUniversity Hospitals Parma Medical CenterComment on above:Performed By: #### UARMICR #### [facility] [address] [place] [address] Dr. Gasper GarberLEUKOCYTESNegativeNormalNEGATIVEThe [facility] HospitalComment on above:Performed By: #### UARMICR #### [facility] [address] [place] [address] Dr. Gasper GarberNitrite Ql (U)NegativeNormalNEGATIVEThe [facility] HospitalComment on above:Performed By: #### UARMICR #### [facility] [address] [place] [address] Dr. Gasper GarberpH (U)6.5 [pH]Normal5-9The [facility] HospitalComment on above: Performed By: #### UARMICR #### [facility] [address] [place] [address] Dr. Gasper GarberSPEC GRAVITY1.749Oluwhg5.005-<=1.025The [facility] HospitalComment on above:Performed By: #### UARMICR #### [facility] [address] [place] [address] Dr. Gasper Dailey PROTEINTRACENormalNEGATIVE/ TRACEThe [facility] HospitalComment on above:Performed By: #### UARMICR #### [facility] [address] [place] [address] Dr. Gasper Hensley MICRO INDNOT INDICATEDNoalThe [facility] HospitalComment on above:Performed By: #### UARMICR #### [facility] [address] [place] [address] Dr. Gasper Kernbilinogen Qn (U)0.2 {Kaushik'U}/dLNormal0.2 - 1.0The [facility] HospitalComment on above:Performed By: #### UARMICR #### [facility] [address] [place] [address] Dr. Gasper Trevino URINEon 09-58-9305RPUWZNN URINEIsolate 1 Enterococcus faecium >100,000 cfu/mL of [...] <=1 S F Nitrofurantoin <=16 S FNormalThe [facility] HospitalComment on above:Performed By: #### URCX #### [facility] [address] [place] [address] Dr. Gasper GarberMAGNESIUMon 69-16-3681Viacrmeed [Mass/Vol]2.0 mg/dLNormal1.8-2.4 The [facility] HospitalComment on above:Performed By: #### TONI LESLIERO #### [facility] [address] [place] [address] Dr. Gasper Su AUTO DIFFon 25-19-7641FMRR #0.0 103/ulNormal0.0-0.1[facility]als Parma Medical CenterComment on above:Performed By: #### TONI LESLIERO #### [facility] [address] [place] [address] Dr. Gasper GarberBasophils/100 WBC (Bld)0.5 %Normal0.2-2.0[facility] Comment on above:Performed By: #### TONI LESLIERO #### [facility] [address] [place] [address] Dr. Gasper Bennett #0.2 103/ulNormal0.0-0.7[facility] HospitalComment on above: Performed By: #### JOANNE LESLIEICRO #### [facility] [address] [place] [address] Dr. Gasper Rankinosinophils/100 WBC (Bld)1.8 %Normal0.9-7.0[facility] Comment on above:Performed By: #### JOANNE LESLIEICRO #### [facility] [address] [place] [address] Dr. Gasper Rankinrythrocyte distribution width (RBC) [Ratio]12.5 %Fqrdvj04.0-15.0 [facility] HospitalComment on above:Performed By: #### TONI LESLIERO #### [facility] [address] [place] [address] Dr. Gasper GarberHematocrit (Bld) [Volume fraction]36.1 %Cczoaw25.0-48.0[facility] HospitalComment on above:Performed By: #### ANUJ UMICRO #### [facility] [address] [place] [address] Dr. Gasper GarberHemoglobin (Bld) [Mass/Vol]11.8 g/dLCritically low12.0-16.0[facility] HospitalComment on above:Performed By: #### ANUJ UMICRO #### [facility] [address] [place] [address] Dr. Gasper Moreira #0.02 10e3/ulNormal0.00-0.03[facility] HospitalComment on above:Performed By: #### ANUJ UMICRO #### [facility] [address] [place] [address] Dr. Gasper Moreira %0.2 %Normal0.0-0.5[facility] HospitalComment on above: Performed By: #### ANUJ UMICRO #### [facility] [address] [place] [address] Dr. Gasper Hagan #1.2 103/ulNormal1.2-3.8[facility] HospitalComment on above:Performed By: #### ANUJ UMICRO #### [facility] [address] [place] [address] Dr. Gasper Snowmphocytes/100 WBC (Bld)14.2 %Critically low20.5-60.0[facility] HospitalComment on above:Performed By: #### ANUJ UMICRO #### [facility] [address] [place] [address] Dr. Gasper GarberMANUAL DIFF REQNONormalThe [facility] HospitalComment on above: Performed By: #### TONI LESLIERO #### [facility] [address] [place] [address] Dr. Gasper Zayas (RBC) [Entitic mass]30.6 jrFodnvi01.7-34.0[facility] HospitalComment on above:Performed By: #### OTNI LESLIERO #### [facility] [facility] [address] [place] [address] Dr. Gasper [facility] ([facility] [Mass/Vol]32.7 g/pVAmerzm92.9-35.2The [facility] HospitalComment on above:Performed By: #### TONI LESLIERO #### [facility] [address] [place] [address] Dr. Gasper Zayas (RBC) [Entitic vol]93.8 qRTojsrs66.0-99.0The [facility] HospitalComment on above:Performed By: #### TONI LESLIERO #### [facility] [address] [place] [address] Dr. Gasper Suarez #1.0 103/ulCritically high0.3-0.8The [facility] Comment on above:Performed By: #### TONI LESLIERO #### [facility] [address] [place] [address] Dr. Gasper Laraocytes/100 WBC (Bld)12.3 %Critically high1.7-12.0The [facility] HospitalComment on above:Performed By: #### BERNIE LESLIE #### [facility] [address] [place] [address] Dr. Gasper Brannon #5.9 103/ulNormal1.4-6.5The [facility] HospitalComment on above:Performed By: #### TONI LESLIERO #### [facility] [address] [place] [address] Dr. Gasper Knowlesutrophils/100 WBC (Bld)71.0 %Bbzejq75.0-75.0The [facility] HospitalComment on above:Performed By: #### TONI LESLIERO #### [facility] [address] [place] [address] Dr. Gasper Andrelet mean volume (Bld) [Entitic vol]11.3 fLNormal9.5-13.5The [facility] HospitalComment on above:Performed By: #### TONI LESLIERO #### [facility] [address] [place] [address] Dr. Gasper GarberPLT237 103/lwOfsyoi542-625Jqx [facility] HospitalComment on above: Performed By: #### TONI LESLIERO #### [facility] [address] [place] [address] Dr. Gasper GarberRBC3.85 106/ulCritically low4.20-5.40The [facility] HospitalComment on above:Performed By: #### TONI LESLIERO #### [facility] [address] [place] [address] Dr. Gasper GarberWBC8.4 103/ulNormal4.0-11.0The [facility] HospitalComment on above: Performed By: #### ANUJ UMDINORAHRO #### [facility] [address] [place] [address] Dr. Gasper GarberMAGNESIUMon 70-11-7564Fdflhhrbx [Mass/Vol]2.0 mg/dLNormal1.8-2.4 The [facility] HospitalComment on above:Performed By: #### TONI LESLIERO #### [facility] [address] [place] [address] Dr. Gasper GarberPROF 14(COMP METB)on 02-64-5271Qpwbhvl [Mass/Vol]3.4 g/dLNormal 3.4-5.0The [facility] HospitalComment on above:Performed By: #### TONI LESLIERO #### [facility] [address] [place] [address] Dr. Gasper GarberAlbumin/Globulin [Mass ratio]1.0 {ratio}NormalThe [facility] HospitalComment on above:Performed By: #### TONI LESLIERO #### [facility] [address] [address] [address] Gasper GómezP [Catalytic activity/Vol]70 U/VVjquqo55-253Wjp [facility] HospitalComment on above:Performed By: #### ANUJ UMICRO #### [facility] [address] [address] [address] Gasper GómezT [Catalytic activity/Vol]23 U/EFyzatr68-08Zhf [facility] HospitalComment on above:Performed By: #### ANUJ UMICRO #### [facility] [address] [address] [address] Gasper Gunteron gap [Moles/Vol]12.2 mmol/LNormalThe [facility] Comment on above:Performed By: #### ANUJ UMICRO #### [facility] [address] [place] [address] Dr. Gasper GarberAST [Catalytic activity/Vol]13 U/LCritically aix40-74Fbe [facility] HospitalComment on above:Performed By: #### ANUJ UMICRO #### [facility] [address] [address] [address] Gasper GarberBilirubin [Mass/Vol]0.6 mg/dLNormal0.2-1.0The [facility] Comment on above:Performed By: #### ANUJ UMICRO #### [facility] [address] [place] [address] Dr. Gasper GarberCalcium [Mass/Vol]9.6 mg/dLNormal8.5-10.1The [facility] Comment on above:Performed By: #### ANUJ UMICRO #### [facility] [address] [place] [address] Dr. Gasper GarberChloride [Moles/Vol]106 mmol/FFjpzcl32-097Ran [facility] Comment on above:Performed By: #### ANUJ UMICRO #### [facility] [address] [place] [address] Dr. Gasper GarberCO2 [Moles/Vol]29.0 mmol/IBmbmfr82.0-32.0The [facility] Comment on above:Performed By: #### TONI LESLIERO #### [facility] [address] [place] [address] Dr. Gasper GarberCreatinine [Mass/Vol]1.46 mg/dLCritically high0.55-1.02The [facility] HospitalComment on above:Performed By: #### TONI LESLIERO #### [facility] [address] [place] [address] Dr. Gasper RankinGFR-AF LNDJKUUE50 mL/min/1.22i0Ohhkfzdfui low>=60The [facility] HospitalComment on above:Performed By: #### TONI LESLIERO #### [facility] [address] [place] [address] Dr. Gasper RankinGFR-NON AF MPEWBBDM53 mL/min/1.42w9Jxvtakewqg low>=60The [facility] HospitalComment on above:Performed By: #### TONI LESLIERO #### [facility] [address] [place] [address] Dr. Gasper GarberGlobulin (S) [Mass/Vol]3.3 g/dLNormalThe [facility] HospitalComment on above:Performed By: #### TONI LESLIERO #### [facility] [address] [place] [address] Dr. Gasper GarberGlucose [Mass/Vol]154 mg/dLCritically lbmf32-839Wvv [facility] HospitalComment on above:Performed By: #### TONI LESLIERO #### [facility] [address] [place] [address] Dr. Gasper GarberPotassium [Moles/Vol]3.2 mmol/LCritically low3.5-5.1The [facility] HospitalComment on above:Performed By: #### TONI LESLIERO #### [facility] [address] [place] [address] Dr. Gasper GarberProtein [Mass/Vol]6.7 g/dLNormal6.4-8.2The [facility] Comment on above:Performed By: #### ERUR, UMICRO #### [facility] [address] [address] [address] Gasper Mccallumum [Moles/Vol]144 mmol/WOqpzvh938-716Wyz [facility] Comment on above:Performed By: #### ERUR UMICRO #### [facility] [address] [place] [address] Dr. Gasper Aguayo nitrogen [Mass/Vol]28.0 mg/dLCritically high7.0-18.0The [facility] HospitalComment on above:Performed By: #### ERUR UMICRO #### [facility] [address] [place] [address] Dr. Gasper Aguayo nitrogen/Creatinine [Mass ratio]19.2 mg/mgNormalThe [facility] HospitalComment on above:Performed By: #### ERURJOANNEICRO #### [facility] [address] [place] [address] Dr. Gasper Wilson 25-37-2122Zrfifndieji peptide B (Bld) [Mass/Vol]1231.0 pg/mLCritically high<=900.0The [facility] HospitalComment on above:Performed By: #### LACT #### [facility] [address] [place] [address] Dr. Gasper Peters SEKOU ADMITon [id number] [Catalytic activity/Vol]30 U/L Bmpcja13-488Xdl [facility] HospitalComment on above:Performed By: #### LACT #### [facility] [address] [place] [address] Dr. Gasper Amato.MB [Mass/Vol]0.54 ng/mLNormal<=3.60The [facility] Comment on above:Performed By: #### LACT #### [facility] [address] [place] [address] Dr. Gasper JoelOP9.8 pg/mLNormal4.0-51.3The [facility] HospitalComment on above:Result Comment: CUT-OFF POINTS HAVE BEEN ESTABLISHED BASED ON THE FOURTH UNIVERSAL DEFINITIONS OF MYOCARDIAL INFARCTION. THE UPPER REFERENCE LIMIT (URL) OF TROPONIN, DEFINED THE 99TH PERCENTILE OF cTnI DISTRIBUTION IN A REFERENCE POPULATION, HAS BEEN CONFIRMED THE DECISION THRESHOLD FOR PR DIAGNOSIS.Performed By: #### LACT #### [facility] [address] [place] [address] Dr. Gasper Baker62 ng/mLNormal9-82[facility] CenterComment on above: Performed By: #### LACT #### [facility] [address] [place] [address] Dr. Gasper Su AUTO DIFFon [id number] #0.0 103/ulNormal0.0-0.1The [facility] HospitalComment on above:Performed By: #### UARMICR #### [facility] [address] [place] [address] Dr. Gasper GarberBasophils/100 WBC (Bld)0.4 %Normal0.2-2.0[facility] Comment on above:Performed By: #### UARMICR #### [facility] [address] [place] [address] Dr. Gasper Bennett #0.2 103/ulNormal0.0-0.7The [facility] HospitalComment on above: Performed By: #### UARMICR #### [facility] [address] [place] [address] Dr. Gasper Rankinosinophils/100 WBC (Bld)2.4 %Normal0.9-7.0[facility] Comment on above:Performed By: #### UARMICR #### [facility] [address] [place] [address] Dr. Gasper Rankinrythrocyte distribution width (RBC) [Ratio]12.7 %Qopduq79.0-15.0 The [facility] HospitalComment on above:Performed By: #### UARMICR #### [facility] [address] [place] [address] Dr. Gasper GarberHematocrit (Bld) [Volume fraction]36.4 %Xhtgzk85.0-48.0The [facility] HospitalComment on above:Performed By: #### UARMICR #### [facility] [address] [place] [address] Dr. Gasper GarberHemoglobin (Bld) [Mass/Vol]11.7 g/dLCritically low12.0-16.0The [facility] HospitalComment on above:Performed By: #### UARMICR #### [facility] [address] [place] [address] Dr. Gasper Moreira #0.03 10e3/ulNormal0.00-0.03The [facility] HospitalComment on above:Performed By: #### UARMICR #### [facility] [address] [place] [address] Dr. Gasper Moreira %0.3 %Normal0.0-0.5The [facility] HospitalComment on above: Performed By: #### UARMICR #### [facility] [address] [place] [address] Dr. Gasper Hagan #1.9 103/ulNormal1.2-3.8The [facility] HospitalComment on above:Performed By: #### UARMICR #### [facility] [address] [place] [address] Dr. Gasper Westhocytes/100 WBC (Bld)20.2 %Critically low20.5-60.0The [facility] HospitalComment on above:Performed By: #### UARMICR #### [facility] [address] [place] [address] Dr. Gasper MunguiaUAL DIFF REQNONormalThe [facility] HospitalComment on above: Performed By: #### UARMICR #### [facility] [address] [place] [address] Dr. Gasper Zayas (RBC) [Entitic mass]30.8 cwRgmxjt29.7-34.0The [facility] HospitalComment on above:Performed By: #### UARMICR #### [facility] [address] [place] [address] Dr. Gasper Zayas (RBC) [Mass/Vol]32.1 g/jEJxqnmm14.9-35.2The [facility] HospitalComment on above:Performed By: #### UARMICR #### [facility] [address] [place] [address] Dr. Gasper Scott (RBC) [Entitic vol]95.8 uQOgfqbl78.0-99.0The [facility] HospitalComment on above:Performed By: #### UARMICR #### [facility] [address] [place] [address] Dr. Gasper Suarez #1.2 103/ulCritically high0.3-0.8The [facility] Comment on above:Performed By: #### UARMICR #### [facility] [address] [place] [address] Dr. Gasper Laraocytes/100 WBC (Bld)13.0 %Critically high1.7-12.0The [facility] HospitalComment on above:Performed By: #### UARMICR #### [facility] [address] [place] [address] Dr. Gasper Brannon #5.8 103/ulNormal1.4-6.5The [facility] HospitalComment on above:Performed By: #### UARMICR #### [facility] [address] [place] [address] Dr. Gasper Knowlesutrophils/100 WBC (Bld)63.7 %Egszmc77.0-75.0The [facility] HospitalComment on above:Performed By: #### UARMICR #### [facility] [address] [place] [address] Dr. Gasper Andrelet mean volume (Bld) [Entitic vol]10.0 fLNormal9.5-13.5The [facility] HospitalComment on above:Performed By: #### UARMICR #### [facility] [address] [place] [address] Dr. Gasper GarberPLT251 103/piCndbiv348-923Wjd [facility] HospitalComment on above: Performed By: #### UARMICR #### [facility] [address] [place] [address] Dr. Gasper GarberRBC3.80 106/ulCritically low4.20-5.40The [facility] HospitalComment on above:Performed By: #### UARMICR #### [facility] [address] [place] [address] Dr. Gasper GarberWBC9.2 103/ulNormal4.0-11.0The [facility] HospitalComment on above: Performed By: #### UARMICR #### [facility] [address] [place] [address] Dr. Gasper GarberBASO #0.0 103/ulNormal0.0-0.1The [facility] HospitalComment on above:Performed By: #### UARMICR #### [facility] [address] [place] [address] Dr. Gasper GarberBasophils/100 WBC (Bld)0.0 %Critically low0.2-2.0The [facility] HospitalComment on above:Performed By: #### UARMICR #### [facility] [address] [place] [address] Dr. Gasper Bennett #0.0 103/ulNormal0.0-0.7The [facility] HospitalComselect specialty hospital on above: Performed By: #### UARMICR #### [facility] [address] [place] [address] Dr. Gasper Rankinosinophils/100 WBC (Bld)0.0 %Critically low0.9-7.0The [facility] HospitalComment on above:Performed By: #### UARMICR #### [facility] [address] [place] [address] Dr. Gasper Rankinrythrocyte distribution width (RBC) [Ratio]12.1 %Jfiqae75.0-15.0 The [facility] HospitalComment on above:Performed By: #### UARMICR #### [facility] [address] [place] [address] Dr. Gasper GarberHematocrit (Bld) [Volume fraction]37.9 %Ylmblw73.0-48.0The [facility] HospitalComment on above:Performed By: #### UARMICR #### [facility] [address] [place] [address] Dr. Gasper GarberHemoglobin (Bld) [Mass/Vol]12.2 g/dZIxsylq46.0-16.0The [facility] HospitalComment on above:Performed By: #### UARMICR #### [facility] [address] [place] [address] Dr. Gasper Moreira #0.00 10e3/ulNormal0.00-0.03The [facility] HospitalComment on above:Performed By: #### UARMICR #### [facility] [address] [place] [address] Dr. Gasper Moreira %0.0 %Normal0.0-0.5The [facility] HospitalComment on above: Performed By: #### UARMICR #### [facility] [address] [place] [address] Dr. Gasper Hagan #1.3 103/ulNormal1.2-3.8The [facility] HospitalComment on above:Performed By: #### UARMICR #### [facility] [address] [place] [address] Dr. Gasper Westhocytes/100 WBC (Bld)18.6 %Critically low20.5-60.0The [facility] HospitalComment on above:Performed By: #### UARMICR #### [facility] [address] [place] [address] Dr. Gasper MunguiaUAL DIFF REQNONormalThe [facility] HospitalComment on above: Performed By: #### UARMICR #### [facility] [address] [place] [address] Dr. Gasper Nix (RBC) [Entitic mass]30.7 swTilztx16.7-34.0The [facility] HospitalComment on above:Performed By: #### UARMICR #### [facility] [address] [place] [address] Dr. Gasper ZayasHC (RBC) [Mass/Vol]32.2 g/qQTsmqir52.9-35.2The [facility] HospitalComment on above:Performed By: #### UARMICR #### [facility] [address] [place] [address] Dr. Gasper ZayasV (RBC) [Entitic vol]95.5 cALcbzfb59.0-99.0The [facility] HospitalComment on above:Performed By: #### UARMICR #### [facility] [address] [place] [address] Dr. Gasper Suarez #0.8 103/ulNormal0.3-0.8The [facility] HospitalComment on above:Performed By: #### UARMICR #### [facility] [address] [place] [address] Dr. Gasper Laraocytes/100 WBC (Bld)11.6 %Normal1.7-12.0The [facility] Comment on above:Performed By: #### UARMICR #### [facility] [address] [place] [address] Dr. Gasper Brannon #5.0 103/ulNormal1.4-6.5The [facility] HospitalComment on above:Performed By: #### UARMICR #### [facility] [address] [place] [address] Dr. Gasper Knowlesutrophils/100 WBC (Bld)69.8 %Zdujze46.0-75.0The [facility] HospitalComment on above:Performed By: #### UARMICR #### [facility] [address] [place] [address] Dr. Gasper Andrelet mean volume (Bld) [Entitic vol]9.8 fLNormal9.5-13.5The [facility] HospitalComment on above:Performed By: #### UARMICR #### [facility] [address] [place] [address] Dr. Gasper GarberPLT258 103/agHqculf915-353Zdi [facility] Hospitalment on above: Performed By: #### UARMICR #### [facility] [address] [address] [address] Gasper GarberRBC3.97 106/ulCritically low4.20-5.40The [facility] on above:Performed By: #### UARMICR #### [facility] [address] [address] [address] Gasper GarberWBC7.1 103/ulNormal4.0-11.0The [facility] HospitalComment on above: Performed By: #### UARMICR #### [facility] [address] [address] [address] Gasper GarberCT HEAD WO CONon 08-13-2531ST HEAD WO CONEXAMINATION: CT HEAD WO CON, [...] Mild cervical spondylosis. Electronically authenticated by: [employer] Date: 2022-05-14 00:20NormUniversity Hospitals Beachwood Medical CenterCovid-19 PCR (CVDTBH)on 14-86-7413CUTI-CoV-2 (COVID-19) RNA ANA LUISA+probe Ql (Unsp spec)Not detectedNormalNOT DETECTEDThe [facility] Comment on above:Result Comment: When [...] for this test is supported by the [employer] and Human Service's declaration that [...] longer be used).Performed By: #### LACT #### [facility] [address] [address] [address] Gasper Purvis URINE PROFILEon 61-91-8798Xtzkfvibz Ql (U)NegativeNormal NEGATIVEThe [facility] HospitalComment on above:Performed By: #### ACETON #### [facility] [address] [address] [address] Gasper GarberClarity (U)CLEARNormalCLEARUniversity Hospitals Parma Medical CenterComment on above: Performed By: #### ACETON #### [facility] [address] [place] [address] Dr. Gasper Webster (U)LT. YELLOWNormalYELLOWUniversity Hospitals Parma Medical CenterComment on above:Performed By: #### ACETON #### [facility] [address] [address] [address] Gasper Celis micrscopic examination will be performed if indicated. NormalThe [facility] HospitalComment on above:Performed By: #### ACETON #### [facility] [address] [place] [address] Dr. Gasper GarberGlucose Ql (U)NegativeNormalNEGATIVEUniversity Hospitals Parma Medical CenterComment on above:Performed By: #### ACETON #### [facility] [address] [place] [address] Dr. Gasper GarberHemoglobin Ql (U)NegativeNormalNEGCincinnati Shriners Hospital Comment on above:Performed By: #### ACETON #### [facility] [address] [place] [address] Dr. Gasper GarberKetones Ql (U)NegativeNormalNEGATIVEUniversity Hospitals Parma Medical CenterComment on above:Performed By: #### ACETON #### [facility] [address] [place] [address] Dr. Gasper GarberLEUKOCYTESNegativeNormalNEGATIVEUniversity Hospitals Parma Medical CenterComment on above:Performed By: #### ACETON #### [facility] [address] [place] [address] Dr. Gasper GarberNitrite Ql (U)PositiveAbnormalNEGCincinnati Shriners Hospital Comment on above:Performed By: #### ACETON #### [facility] [address] [place] [address] Dr. Gasper GarberpH (U)7.0 [pH]Normal5-9[facility] Parma Medical CenterComment on above: Performed By: #### ACETON #### [facility] [address] [place] [address] Dr. Gasper GarberSPEC GRAVITY<=1.968Ihbdctkj2.005-<=1.025The [facility] Comment on above:Performed By: #### ACETON #### [facility] [address] [place] [address] Dr. Gasper Dailey PROTEINNegativeNormalNEGATIVE/ TRACEThe [facility] Comment on above:Performed By: #### ACETON #### [facility] [address] [place] [address] Dr. Gasper Hensley MICRO INDINDICATEDNormalThe [facility] HospitalComment on above: Performed By: #### ACETON #### [facility] [address] [place] [address] Dr. Gasper Kernbilinogen Qn (U)0.2 {Kaushik'U}/dLNormal0.2 - 1.0The [facility] HospitalComment on above:Performed By: #### ACETON #### [facility] [address] [place] [address] Dr. Gasper GarberMAGNESIUMon 67-06-7141Yyjrnqngn [Mass/Vol]2.4 mg/dLNormal1.8-2.4 The [facility] HospitalComment on above:Performed By: #### TONI LESLIERO #### [facility] [address] [place] [address] Dr. Gasper GarberPROF 14(COMP METB)on 66-14-0227Elakort [Mass/Vol]3.5 g/dLNormal 3.4-5.0The [facility] HospitalComment on above:Performed By: #### JOANNE LESLIEICRO #### [facility] [address] [place] [address] Dr. Gasper GarberAlbumin/Globulin [Mass ratio]1.0 {ratio}NormalThe [facility] HospitalComment on above:Performed By: #### ANUJ UMICRO #### [facility] [address] [place] [address] Dr. Gasper GómezP [Catalytic activity/Vol]82 U/KRzdaxl18-595Cgf [facility] HospitalComment on above:Performed By: #### BERNIE LESLIE #### [facility] [address] [place] [address] Dr. Gasper GómezT [Catalytic activity/Vol]22 U/RNdydam56-33Fxz [facility] HospitalComment on above:Performed By: #### BERNIE LESLIE #### [facility] [address] [place] [address] Dr. Gasper Gunteron gap [Moles/Vol]11.1 mmol/LNormalThe [facility] Comment on above:Performed By: #### BERNIE LESLIE #### [facility] [address] [place] [address] Dr. Gasper GarberAST [Catalytic activity/Vol]14 U/LCritically pjz76-23Hdo [facility] HospitalComment on above:Performed By: #### BERNIE LESLIE #### [facility] [address] [place] [address] Dr. Gasper GarberBilirubin [Mass/Vol]0.5 mg/dLNormal0.2-1.0[facility] Comment on above:Performed By: #### BERNIE LESLIE #### [facility] [address] [place] [address] Dr. Gasper GarberCalcium [Mass/Vol]9.8 mg/dLNormal8.5-10.1[facility] Comment on above:Performed By: #### BERNIE LESLIE #### [facility] [address] [place] [address] Dr. Gasper GarberChloride [Moles/Vol]99 mmol/MUsgnzv80-406Yuk [facility] Comment on above:Performed By: #### BERNIE LESLIE #### [facility] [address] [place] [address] Dr. Gasper GarberCO2 [Moles/Vol]30.5 mmol/NGpwczr83.0-32.0[facility] Comment on above:Performed By: #### BERNIE LESLIE #### [facility] [address] [address] [address] Gasper GarberCreatinine [Mass/Vol]1.75 mg/dLCritically high0.55-1.02The [facility] HospitalComment on above:Performed By: #### ERUR, UMICRO #### [facility] [address] [address] [address] Jackman ChangEGFR-AF BNCOGINV78 mL/min/1.35w3Qdufbmccpr low>=60The Wilson Memorial HospitalComment on above:Performed By: #### ERUR, UMICRO #### [facility] [address] [place] [address] Dr. Gasper RankinGFR-NON AF AFDUUNAA99 mL/min/1.73m3Bbaypbudlg low>=60The [facility] HospitalComment on above:Performed By: #### ANUJ UMICRO #### [facility] [address] [place] [address] Dr. Gasper GarberGlobulin (S) [Mass/Vol]3.4 g/dLNormalThe [facility] HospitalComment on above:Performed By: #### ANUJ UMICRO #### [facility] [address] [place] [address] Dr. Gasper GarberGlucose [Mass/Vol]154 mg/dLCritically btuw21-135Ruc [facility] on above:Performed By: #### ANUJ UMICRO #### [facility] [address] [place] [address] Dr. Gasper GarberPotassium [Moles/Vol]3.6 mmol/LNormal3.5-5.1The [facility] Comment on above:Performed By: #### ERUR, UMICRO #### [facility] [address] [place] [address] Dr. Gasper GarberProtein [Mass/Vol]6.9 g/dLNormal6.4-8.2The [facility] Comment on above:Performed By: #### ERUR, UMICRO #### [facility] [address] [place] [address] Dr. Gasper GarberSodium [Moles/Vol]137 mmol/MEncdsc982-756Nsl [facility] Comment on above:Performed By: #### BERNIE LESLIE #### [facility] [address] [place] [address] Dr. Gasper Aguayo nitrogen [Mass/Vol]35.0 mg/dLCritically high7.0-18.0The [facility] HospitalComment on above:Performed By: #### TONI LESLIERO #### [facility] [address] [place] [address] Dr. Gasper Aguayo nitrogen/Creatinine [Mass ratio]20.0 mg/mgNormalThe [facility] HospitalComment on above:Performed By: #### BERNIE LESLIE #### [facility] [address] [place] [address] Dr. Gasper GarberAlbumin [Mass/Vol]3.7 g/dLNormal3.4-5.0The [facility] Comment on above:Performed By: #### LACT #### [facility] [address] [place] [address] Dr. Gasper GarberAlbumin/Globulin [Mass ratio]1.1 {ratio}NormalThe [facility] HospitalComment on above:Performed By: #### LACT #### [facility] [address] [place] [address] Dr. Gasper GómezP [Catalytic activity/Vol]84 U/EZivhsi33-623Liy [facility] HospitalComment on above:Performed By: #### LACT #### [facility] [address] [place] [address] Dr. Gasper Alamo [Catalytic activity/Vol]26 U/WUonciu99-12Ena [facility] HospitalComment on above:Performed By: #### LACT #### [facility] [address] [place] [address] Dr. Gasper Danielle gap [Moles/Vol]8.5 mmol/LNormalThe [facility] HospitalComment on above:Performed By: #### LACT #### [facility] [address] [place] [address] Dr. Yilan ChangAST [Catalytic activity/Vol]16 U/XJxhepw01-26Egd [facility] HospitalComment on above:Performed By: #### LACT #### [facility] [address] [place] [address] Dr. Gasper GarberBilirubin [Mass/Vol]0.4 mg/dLNormal0.2-1.0The [facility] Comment on above:Performed By: #### LACT #### [facility] [address] [place] [address] Dr. Gasper GarberCalcium [Mass/Vol]9.8 mg/dLNormal8.5-10.1The [facility] Comment on above:Performed By: #### LACT #### [facility] [address] [place] [address] Dr. Gasper GarberChloride [Moles/Vol]99 mmol/HNeueaw09-347Pfn [facility] Comment on above:Performed By: #### LACT #### [facility] [address] [place] [address] Dr. Gasper GarberCO2 [Moles/Vol]32.3 mmol/LCritically high21.0-32.0The [facility] HospitalComment on above:Performed By: #### LACT #### [facility] [address] [place] [address] Dr. Gasper GarberCreatinine [Mass/Vol]1.84 mg/dLCritically high0.55-1.02The [facility] HospitalComment on above:Performed By: #### LACT #### [facility] [address] [place] [address] Dr. Gasper RankinGFR-AF WCMXERXF95 mL/min/1.71h5Vrzhyxalrs low>=60The [facility] HospitalComment on above:Performed By: #### LACT #### [facility] [address] [place] [address] Dr. Gasper RankinGFR-NON AF FNEGZMJP14 mL/min/1.42t0Zlmphujoay low>=60The [facility] HospitalComment on above:Performed By: #### LACT #### [facility] [address] [place] [address] Dr. Gasper GarberGlobulin (S) [Mass/Vol]3.4 g/dLNormUniversity Hospitals Beachwood Medical CenterComment on above:Performed By: #### LACT #### [facility] [address] [place] [address] Dr. Gasper GarberGlucose [Mass/Vol]180 mg/dLCritically peql55-701Ibl [facility] HospitalComment on above:Performed By: #### LACT #### [facility] [address] [place] [address] Dr. Gasepr GarberPotassium [Moles/Vol]3.8 mmol/LNormal3.5-5.1The [facility] Comment on above:Performed By: #### LACT #### [facility] [address] [place] [address] Dr. Gasper GarberProtein [Mass/Vol]7.1 g/dLNormal6.4-8.2The [facility] Comment on above:Performed By: #### LACT #### [facility] [address] [place] [address] Dr. Gasper GarberSodium [Moles/Vol]136 mmol/TVisyzf773-696Riw [facility] Comment on above:Performed By: #### LACT #### [facility] [address] [place] [address] Dr. Gasper GarberUrea nitrogen [Mass/Vol]35.0 mg/dLCritically high7.0-18.0The [facility] HospitalComment on above:Performed By: #### LACT #### [facility] [address] [place] [address] Dr. Gasper GarberUrea nitrogen/Creatinine [Mass ratio]19.0 mg/mgNormalThFairfield Medical CenterComment on above:Performed By: #### LACT #### [facility] [address] [place] [address] Dr. Gasper GarberPROTIMEmarisela [id number] Coag (PPP) [Relative time]0.95 {INR} NormalThe [facility] HospitalComment on above:Performed By: #### URCX #### [facility] [address] [place] [address] Dr. Gasper Martino GUIDELINESSEE [facility] Rehabilitation HospitalComment on above:Result Comment: DESIRED INR: 2.0 - 3.0 CONDITIONS NOT LISTED BELOW 2.5 - 3.5 FOR PROSTHETIC HEART VALVE REPLACEMENT 2.5 - 3.5 RECURRENT THROMBOSIS Performed By: #### URCX #### [facility] [address] [place] [address] Dr. Gasper Conway Coag (PPP) [Time]10.1 sNormal9.0-11.6The [facility] Comment on above:Performed By: #### URCX #### [facility] [address] [place] [address] Dr. Gasper Marino [id number] Coag (Bld) [Time]24.7 bLddwwn77.3-36.2[facility] Medical CenterComment on above:Performed By: #### BERNIE LESLIE #### [facility] [address] [place] [address] Dr. Gasper Peres MICROSCOPIC ONLYon [id number]J SEEN The [facility] HospitalComment on above:Performed By: #### UARMICR #### [facility] [address] [place] [address] Dr. Gasper Crook identified Cx Nom (U)INDICATEDSumma Health Barberton CampusComment on above:Performed By: #### UARMICR #### [facility] [address] [place] [address] Dr. Gasper Hopkins SEENNormalNONE SEENUniversity Hospitals Parma Medical CenterComselect specialty hospital on above:Performed By: #### UARMICR #### [facility] [address] [place] [address] Dr. Gasper Connolly LM Nom (Urine sed)NONE SEENNormalNONE SEENUniversity Hospitals Parma Medical CenterComselect specialty hospital on above:Performed By: #### UARMICR #### [facility] [address] [place] [address] Dr. Jackman ChangEpithelial cells LM Ql (Urine sed)MANYAbnormalNONE SEEN /RAREThe [facility] HospitalComment on above:Performed By: #### UARMICR #### [facility] [address] [address] [address] Gasper GarberMUUMA SEENNormalNONE SEENKettering Health Behavioral Medical Center on above:Performed By: #### UARMICR #### [facility] [address] [place] [address] Dr. Gasper GarberUrohiREQ9-9Ehfinu0-8Eue [facility] HospitalComselect specialty hospital on above:Performed By: #### UARMICR #### [facility] [address] [address] [address] Gasper GarberWBC0-2AbnormalIZZY SEENUniversity Hospitals Parma Medical CenterComselect specialty hospital on above: Performed By: #### UARMICR #### [facility] [address] [place] [address] Dr. Gasper GarberXR CHEST 1 Von [id number] CHEST 1 VEXAM: XR CHEST 1 V [...] acute cardiopulmonary process. Electronically authenticated by: [facility] Date: 2022-05-14 00:19NoOhioHealth Arthur G.H. Bing, MD, Cancer CenterXR LSPINE 2_3 VIEWSon [id number] LSPINE 2_3 VIEWSEXAMINATION: XR LSPINE 2_3 VIEWS HISTORY: Pain in thoracic spine COMPARISON: No relevant comparison available. FINDINGS: BONES: Rotatory dextroscoliosis centered at L1. Moderate spondylosis and facet osteoarthropathy DISC SPACES: Multilevel narrowing most significant at L1-L2 PARASPINOUS: Negative. No paraspinous abnormality is seen. OTHER: Extensive vascular calcifications IMPRESSION: Moderate degenerative changes with rotatory scoliosis Electronically authenticated by: CHRYSTAL LAUREANO Date: 2022-05-05 15:30[facility] Health Barberton CampusGLYCOHEMOGLOBIN A1Con [id number] RECOMMENDATIONSEE BELOW NormalThe [facility] on above:Result Comment: ADA RECOMMENDED LIMIT 4.0 - 6.0 ADA THERAPEUTIC TARGET < 7.0 ACTION SUGGESTED > 7.0Performed By: #### BERNIE LESLIE #### [facility] [address] [place] [address] Dr. Gasper GarberGlucose [Mass/Vol]169 mg/dLNoOhioHealth Arthur G.H. Bing, MD, Cancer CenterComment on above:Performed By: #### BERNIE LESLIE #### [facility] [address] [address] [address] Gasper GarberHbA1c (Bld) [Mass fraction]7.5 %Critically high4.5-6.2The [facility] on above:Performed By: #### BERNIE LESLIE #### [facility] [address] [place] [address] Dr. Gasper GarberNM GASTRIC EMPTYon [id number] GASTRIC EMPTYNUCLEAR MEDICINE GASTRIC EMPTYING SCAN HISTORY: [...] authenticated by: NASRIN CHIU Date: 2021-09-09 13:23NoOhioHealth Arthur G.H. Bing, MD, Cancer CenterACETONE SERUMon [id number]VFFIXPfe [facility] HospitalComment on above:Performed By: #### ACETON #### [facility] [address] [place] [address] Dr. Gasper GarberCBC AUTO DIFFon [id number] #0.0 103/ulNormal0.0-0.1The [facility] on above:Performed By: #### UARMICR #### [facility] [address] [place] [address] Dr. Gasper GarberBasophils/100 WBC (Bld)0.5 %Normal0.2-2.0The [facility] Comment on above:Performed By: #### UARMICR #### [facility] [address] [place] [address] Dr. Gasper Bennett #0.2 103/ulNormal0.0-0.7The [facility] HospitalComment on above: Performed By: #### UARMICR #### [facility] [address] [place] [address] Dr. Gasper Rankinosinophils/100 WBC (Bld)1.9 %Normal0.9-7.0The [facility] Comment on above:Performed By: #### UARMICR #### [facility] [address] [place] [address] Dr. Gasper Rankinrythrocyte distribution width (RBC) [Ratio]12.8 %Aswymo81.0-15.0 The [facility] HospitalComment on above:Performed By: #### UARMICR #### [facility] [address] [place] [address] Dr. Gasper GarberHematocrit (Bld) [Volume fraction]36.2 %Udkdps64.0-48.0The [facility] HospitalComment on above:Performed By: #### UARMICR #### [facility] [address] [place] [address] Dr. Gasper GarberHemoglobin (Bld) [Mass/Vol]11.4 g/dLCritically low12.0-16.0The [facility] HospitalComment on above:Performed By: #### UARMICR #### [facility] [address] [place] [address] Dr. Gasper Moreira #0.03 10e3/ulNormal0.00-0.03The [facility] HospitalComment on above:Performed By: #### UARMICR #### [facility] [address] [place] [address] Dr. Gasper Moreira %0.4 %Normal0.0-0.5The [facility] HospitalComment on above: Performed By: #### UARMICR #### [facility] [address] [place] [address] Dr. Gasper Hagan #1.3 103/ulNormal1.2-3.8The [facility] HospitalComment on above:Performed By: #### UARMICR #### [facility] [address] [place] [address] Dr. Gasper Wsethocytes/100 WBC (Bld)15.2 %Critically low20.5-60.0The [facility] HospitalComment on above:Performed By: #### UARMICR #### [facility] [address] [place] [address] Dr. Gasper Bardales DIFF REQNONormalThe [facility] HospitalComment on above: Performed By: #### UARMICR #### [facility] [address] [place] [address] Dr. Gasper Zayas (RBC) [Entitic mass]30.6 kvUazqkj74.7-34.0The [facility] HospitalComment on above:Performed By: #### UARMICR #### [facility] [address] [place] [address] Dr. Gasper Zayas (RBC) [Mass/Vol]31.5 g/wTJvruhw26.9-35.2The [facility] HospitalComment on above:Performed By: #### UARMICR #### [facility] [address] [place] [address] Dr. Gasper Zayas (RBC) [Entitic vol]97.1 kGXqbpfe27.0-99.0The [facility] HospitalComment on above:Performed By: #### UARMICR #### [facility] [address] [place] [address] Dr. Gasper Suarez #0.8 103/ulNormal0.3-0.8The [facility] HospitalComment on above:Performed By: #### UARMICR #### [facility] [address] [place] [address] Dr. Gasper GarberMonocytes/100 WBC (Bld)9.8 %Normal1.7-12.0The [facility] Comment on above:Performed By: #### UARMICR #### [facility] [address] [place] [address] Dr. Gasper KnowlesUT #6.1 103/ulNormal1.4-6.5The [facility] HospitalComment on above:Performed By: #### UARMICR #### [facility] [address] [place] [address] Dr. Gasper Knowlesutrophils/100 WBC (Bld)72.2 %Ucszvh31.0-75.0The [facility] HospitalComment on above:Performed By: #### UARMICR #### [facility] [address] [place] [address] Dr. Gasper GarberPlatelet mean volume (Bld) [Entitic vol]10.2 fLNormal9.5-13.5The [facility] HospitalComment on above:Performed By: #### UARMICR #### [facility] [address] [place] [address] Dr. Gasper GarberPLT249 103/nmRzbinq153-008Psp [facility] HospitalComment on above: Performed By: #### UARMICR #### [facility] [address] [place] [address] Dr. Gasper GarberRBC3.73 106/ulCritically low4.20-5.40The [facility] HospitalComment on above:Performed By: #### UARMICR #### [facility] [address] [place] [address] Dr. Gasper GarberWBC8.4 103/ulNormal4.0-11.0The [facility] HospitalComment on above: Performed By: #### UARMICR #### [facility] [address] [place] [address] Dr. Gasper Trevino URINEon [id number] URINECulture Observations: HEAVY GROWTH OF MIXED GENITAL KADEEM. NO POTENTIAL PATHOGENS SEEN.NormalMiddletown Hospital HospitalComment on above:Performed By: #### ACETON #### [facility] [address] [place] [address] Dr. Gasper Purvis URINE PROFILEon [id number] Ql (U)SMALLAbnormal NEGATIVEUniversity Hospitals Parma Medical CenterComment on above:Performed By: #### ERUR, UMICRO #### [facility] [address] [address] [address] Gasper GarberClarity (U)CLOUDYAbnormalCLEARThe [facility] HospitalComment on above:Performed By: #### ERUR, UMICRO #### [facility] [address] [place] [address] Dr. Gasper Webster (U)YELLOWNormalYELLOWUniversity Hospitals Parma Medical CenterComment on above: Performed By: #### ERUEva UMICRO #### [facility] [address] [place] [address] Dr. Gasper Celis micrscopic examination will be performed if indicated. NormalUniversity Hospitals Parma Medical CenterComment on above:Performed By: #### ERUR, UMICRO #### [facility] [address] [place] [address] Dr. Gasper GarberGlucose Ql (U)NegativeNormalNEGATIVEUniversity Hospitals Parma Medical CenterComment on above:Performed By: #### ERUR, UMICRO #### [facility] [address] [place] [address] Dr. Gasper GarberHemoglobin Ql (U)NegativeNormalNEGATIVEUniversity Hospitals Parma Medical Center Comment on above:Performed By: #### ERUR, UMICRO #### [facility] [address] [place] [address] Dr. Gasper GarberKetones Ql (U)NegativeNormalNEGATIVEUniversity Hospitals Parma Medical CenterComment on above:Performed By: #### ERUR, UMICRO #### [facility] [address] [place] [address] Dr. Gasper GarberLEUKOCYTESTRACEAbnormalNEGATIVEUniversity Hospitals Parma Medical CenterComment on above:Performed By: #### ANUJ UMICRO #### [facility] [address] [address] [address] Gasper Buck Ql (U)NegativeNormalNEGATIVEThe [facility] HospitalComment on above:Performed By: #### ANUJ UMICRO #### [facility] [address] [address] [address] Gasper Smith (U)5.5 [pH]Normal5-9The [facility] HospitalComment on above: Performed By: #### ANUJ UMICRO #### [facility] [address] [place] [address] Dr. Gasper GarberProtein (U) [Mass/Vol]100 mg/dLAbnormalNEGATIVE/ TRACEThe [facility] HospitalComment on above:Performed By: #### ANUJ UMICRO #### [facility] [address] [place] [address] Dr. Gasper Fleming GRAVITY>=1.948Egneyqmu5.005-<=1.025The [facility] Comment on above:Performed By: #### ANUJ UMICRO #### [facility] [address] [place] [address] Dr. Gasper Hensley MICRO INDINDICATEDNormalThe [facility] HospitalComment on above: Performed By: #### ANUJ UMICRO #### [facility] [address] [place] [address] Dr. Gasper Snider Qn (U)1.0 {Kaushik'U}/dLNormal0.2 - 1.0The [facility] HospitalComment on above:Performed By: #### ANUJ UMICRO #### [facility] [address] [place] [address] Dr. Gasper Nixon PANEL (PCR)on [id number] F 40/41Not detectedNormal NOT DETECTEDThe [facility] HospitalComment on above:Performed By: #### ANUJ UMICRO #### [facility] [address] [place] [address] Dr. Gasper GarberAstrovirusNot detectedNormalNOT DETECTEDThe [facility] Comment on above:Performed By: #### ERUR, UMICRO #### [facility] [address] [address] [address] Gasper Bautista. Diff toxin A/BNot detectedNormalNOT DETECTEDThe [facility] HospitalComment on above:Performed By: #### ERUR, UMICRO #### [facility] [address] [address] [address] Gasper MendozapylobacterNot detectedNormalNOT DETECTEDThe [facility] Comment on above:Performed By: #### CANDER, UMICRO #### [facility] [address] [place] [address] Dr. Gasper LamyptosporidiumNot detectedNormalNOT DETECTEDThe [facility] HospitalComment on above:Performed By: #### ANUJ UMICRO #### [facility] [address] [place] [address] Dr. Gasper Suarez. CayetanensisNot detectedNormalNOT DETECTEDThe [facility] HospitalComment on above:Performed By: #### CANDER, UMICRO #### [facility] [address] [place] [address] Dr. Gasper Davila Coli E115Hfm ApplicableNormalNot ApplicableThe [facility] HospitalComment on above:Performed By: #### ANUJ, UMICRO #### [facility] [address] [address] [address] Gasper Davila histolyticaNot detectedNormalNOT DETECTEDThe [facility] Comment on above:Performed By: #### ERUR, UMICRO #### [facility] [address] [address] [address] Gasper RankinAECNot detectedNormalNOT DETECTEDThe [facility] HospitalComment on above:Performed By: #### ERUR, UMICRO #### [facility] [address] [address] [address] Gasper RankinIECNot detectedNormalNOT DETECTEDThe [facility] HospitalComment on above:Performed By: #### ANUJ UMICRO #### [facility] [address] [address] [address] Gasper RankinPECNot detectedNormalNOT DETECTEDThe [facility] HospitalComselect specialty hospital on above:Performed By: #### ANUJ UMICRO #### [facility] [address] [address] [address] Gasper RankinTECNot detectedNormalNOT DETECTEDThe [facility] HospitalComment on above:Performed By: #### ANUJ UMICRO #### [facility] [address] [place] [address] Dr. Gasper Clark LambliaNot detectedNormalNOT DETECTEDThe [facility] Comment on above:Performed By: #### ANUJ UMICRO #### [facility] [address] [place] [address] Dr. Gasper Rush CONTROLSPremier HealthComment on above:Performed By: #### ANUJ UMICRO #### [facility] [address] [place] [address] Dr. Gasper Murphy [facility] HEADERGI PANEL [facility] Comment on above:Performed By: #### ANUJ UMICRO #### [facility] [address] [place] [address] Dr. Gasper Irving ECOLIGI PANEL DIARRHEAGENIC E.COLI / SHIGELLASumma Health Barberton CampusComment on above:Performed By: #### ANUJ UMICRO #### [facility] [address] [place] [address] Dr. Gasper Irving INFOSEE [facility] HospitalComselect specialty hospital on above: Result Comment: EAEC- Enteroaggregative E. Coli EPEC- Enteropathogenic E. Coli ETEC- Enterotoxigenic E. Coli lt/st STEC- Shigella-like toxin-producing E. Coli stx1/stx2 EIEC- Shigella/Enteroinvasive E. ColiPerformed By: #### ANUJ UMICRO #### [facility] [address] [address] [address] Gasper Irving PARASITESGI PANEL PARASITESSumma Health Barberton Campus Comment on above:Performed By: #### ANUJ UMICRO #### [facility] [address] [address] [address] Gasper Irving VIRUSGI PANEL VIRUSESSumma Health Barberton CampusComment on above:Performed By: #### ANUJ UMICRO #### [facility] [address] [address] [address] Gasper Valenzuelarovirus GI/GIIDetectedAbnormalNOT DETECTEDUniversity Hospitals Par[facility] Center Comment on above:Performed By: #### ANUJ UMICRO #### [facility] [address] [place] [address] Dr. Gasper Bunn ShigelloidesNot detectedNormalNOT DETECTEDThe [facility] HospitalComment on above:Performed By: #### ANUJ UMICRO #### [facility] [address] [place] [address] Dr. Gasper GarberRotavirus ANot detectedNormalNOT DETECTEDUniversity Hospitals [facility] Comment on above:Performed By: #### ANUJ UMICRO #### [facility] [address] [place] [address] Dr. Gasper AlmonellaNot detectedNormalNOT DETECTEDUniversity Hospitals Parma Medical Center Comment on above:Performed By: #### ANJU UMICRO #### [facility] [address] [place] [address] Dr. Gasper MalhotrapovirusNot detectedNormalNOT DETECTEDUniversity [facility] Comment on above:Performed By: #### ANUJ UMICRO #### [facility] [address] [place] [address] Dr. Gasper GarberSTECNot detectedNormalNOT DETECTEDThe [facility] HospitalComment on above:Performed By: #### ANUJ UMICRO #### [facility] [address] [place] [address] Dr. Gasper GarberVibrioNot detectedNormalNOT DETECTEDThe [facility] HospitalComment on above:Performed By: #### ERUEva UMICRO #### [facility] [address] [place] [address] Dr. Gasper Brown CholeraNot detectedNormalNOT DETECTEDThe [facility] Comment on above:Performed By: #### ANUJ UMICRO #### [facility] [address] [place] [address] Dr. Gasper Wade. EnterocoliticaNot detectedNormalNOT DETECTEDThe [facility] HospitalComment on above:Performed By: #### ANUJ UMICRO #### [facility] [address] [place] [address] Dr. Gasper GarberLACTATE/LACTIC ACIDon [id number] [Moles/Vol]1.0 mmol/L Normal0.4-1.9The [facility] HospitalComment on above:Performed By: #### PT, PTT #### [facility] [address] [place] [address] Dr. Gasper GarberLIPASEon 76-12-0037Nqnnck [Catalytic activity/Vol]166.0 U/LNormal 73.0-393.0The [facility] HospitalComment on above:Performed By: #### UARMICR #### [facility] [address] [place] [address] Dr. Gasper GarberPROF 14(COMP METB)on 15-76-1614Qvuwneo [Mass/Vol]3.7 g/dLNormal 3.4-5.0The [facility] HospitalComment on above:Performed By: #### UARMICR #### [facility] [address] [place] [address] Dr. Gasper GarberAlbumin/Globulin [Mass ratio]1.0 {ratio}NormalThe [facility] HospitalComment on above:Performed By: #### UARMICR #### [facility] [address] [place] [address] Dr. Gasper GarberALP [Catalytic activity/Vol]75 U/RFlmflu92-965Zbu [facility] HospitalComment on above:Performed By: #### UARMICR #### [facility] [address] [address] [address] Gasper GómezT [Catalytic activity/Vol]44 U/JJdlhma24-50Rwe [facility] HospitalComment on above:Performed By: #### UARMICR #### [facility] [address] [address] [address] Gasper GarberAnion gap [Moles/Vol]15.3 mmol/LNormalUniversity [facility]als [facility] Comment on above:Performed By: #### UARMICR #### [facility] [address] [address] [address] Gasper GarberAST [Catalytic activity/Vol]27 U/DRwroxr85-71Mdu [facility] HospitalComment on above:Performed By: #### UARMICR #### [facility] [address] [place] [address] Dr. Gasper GarberBilirubin [Mass/Vol]0.5 mg/dLNormal0.2-1.0The [facility] Comment on above:Performed By: #### UARMICR #### [facility] [address] [place] [address] Dr. Gasper GarberCalcium [Mass/Vol]9.7 mg/dLNormal8.5-10.1[facility] Comment on above:Performed By: #### UARMICR #### [facility] [address] [place] [address] Dr. Gasper GarberChloride [Moles/Vol]105 mmol/DZiliws49-272Fix [facility] Comment on above:Performed By: #### UARMICR #### [facility] [address] [place] [address] Dr. Gasper GarberCO2 [Moles/Vol]24.0 mmol/CXdlwyb60.0-32.0The [facility] Comment on above:Performed By: #### UARMICR #### [facility] [address] [place] [address] Dr. Gasper GarberCreatinine [Mass/Vol]2.20 mg/dLCritically high0.55-1.02The [facility] HospitalComment on above:Performed By: #### UARMICR #### [facility] [address] [address] [address] Gasper RankinGFR-AF FGJVNOKH55 mL/min/1.63s1Hrpcihziay low>=60The [facility] HospitalComment on above:Performed By: #### UARMICR #### [facility] [address] [place] [address] Dr. Gasper RankinGFR-NON AF XGSIAQDO34 mL/min/1.98b5Ruvmgtylks low>=60The [facility] HospitalComment on above:Performed By: #### UARMICR #### [facility] [address] [place] [address] Dr. Gasper GarberGlobulin (S) [Mass/Vol]3.7 g/dLNormalThe [facility] HospitalComment on above:Performed By: #### UARMICR #### [facility] [address] [place] [address] Dr. Gasper GarberGlucose [Mass/Vol]280 mg/dLCritically tzli22-542MuoKettering Health Behavioral Medical Center on above:Performed By: #### UARMICR #### [facility] [address] [place] [address] Dr. Gasper GarberPotassium [Moles/Vol]4.3 mmol/LNormal3.5-5.1[facility] Comment on above:Performed By: #### UARMICR #### [facility] [address] [place] [address] Dr. Gasper GarberProtein [Mass/Vol]7.4 g/dLNormal6.4-8.2[facility] Comment on above:Performed By: #### UARMICR #### [facility] [address] [place] [address] Dr. Gasper GarberSodium [Moles/Vol]140 mmol/RIsdtxb133-500Hmv [facility] Comment on above:Performed By: #### UARMICR #### [facility] [address] [place] [address] Dr. Gasper GarberUrea nitrogen [Mass/Vol]29.0 mg/dLCritically high7.0-18.0The [facility] HospitalComment on above:Performed By: #### UARMICR #### [facility] [address] [place] [address] Dr. Gasper Aguayo nitrogen/Creatinine [Mass ratio]13.2 mg/mgNoOhioHealth Arthur G.H. Bing, MD, Cancer CenterComment on above:Performed By: #### UARMICR #### [facility] [address] [place] [address] Dr. Gasper Ackerman 84-72-8145MWH8.923 uIU/mLNormal0.358-3.740The [facility] HospitalComment on above:Performed By: #### UARMICR #### [facility] [address] [place] [address] Dr. Gasper Peres MICROSCOPIC ONLYon 08-01-9358BLPCLWLZWQOTZGsgqvcnwAHXO SEEN The [facility] HospitalComselect specialty hospital on above:Performed By: #### TONI LESLIERO #### [facility] [address] [place] [address] Dr. Gasper Crook identified Cx Nom (U)INDICATEDSumma Health Barberton CampusComment on above:Performed By: #### TONI LESLIERO #### [facility] [address] [place] [address] Dr. Gasper Hopkins SEENNormalNONE SEENThe [facility] HospitalComselect specialty hospital on above:Performed By: #### TONI LESLIERO #### [facility] [address] [place] [address] Dr. Gasper Connolly LM Nom (Urine sed)NONE SEENNormalNONE SEENUniversity Hospitals Parma Medical CenterComselect specialty hospital on above:Performed By: #### TONI LESLIERO #### [facility] [address] [place] [address] Dr. Jackman ChangEpithelial cells LM Ql (Urine sed)MANYAbnormalNONE SEEN /RAREThe [facility] HospitalComselect specialty hospital on above:Performed By: #### JOANNE LESLIEICRO #### [facility] [address] [address] [address] Gasper Benitez SEENNormalNONE SEENThe [facility] HospitalComment on above:Performed By: #### BERNIE LESLIE #### [facility] [address] [address] [address] Gasper GarberPmyuvUVL1-4Lqifps1-6Dpl [facility] HospitalComment on above:Performed By: #### TONI LESLIERO #### [facility] [address] [address] [address] Gasper GarberWBC2-5AbnormalNONE SEENThe [facility] HospitalComment on above: Performed By: #### BERNIE LESLIE #### [facility] [address] [address] [address] Gasper GarberXR ABD FLAT UP_PA Omar [id number] ABD FLAT UP_PA CHEXAMINATION: XR ABD FLAT [...] Electronically authenticated by: CHRYSTAL LAUREANO Date: 2021-08-31 15:55NoKettering Health [facility] AUTO DIFFon [id number] #0.1 103/ulNormal0.0-0.1The [facility] HospitalComment on above:Performed By: #### BERNIE LESLIE #### [facility] [address] [address] [address] Gasper GarberBasophils/100 WBC (Bld)0.6 %Normal0.2-2.0The [facility] Comment on above:Performed By: #### BERNIE LESLIE #### [facility] [address] [address] [address] Yilan ChangEO #0.0 103/ulNormal0.0-0.7The [facility] HospitalComment on above: Performed By: #### TONI LESLIERO #### [facility] [address] [place] [address] Dr. Gasper Rankinosinophils/100 WBC (Bld)0.5 %Critically low0.9-7.0The [facility] HospitalComment on above:Performed By: #### ANUJ UMICRO #### [facility] [address] [place] [address] Dr. Gasper Rankinrythrocyte distribution width (RBC) [Ratio]13.0 %Tpvxkp24.0-15.0 The [facility] HospitalComment on above:Performed By: #### TONI LESLIERO #### [facility] [address] [place] [address] Dr. Gasper GarberHematocrit (Bld) [Volume fraction]35.6 %Critically low36.0-48.0 The [facility] HospitalComment on above:Performed By: #### ANUJ UMICRO #### [facility] [address] [place] [address] Dr. Gasper GarberHemoglobin (Bld) [Mass/Vol]11.5 g/dLCritically low12.0-16.0The [facility] Hospitalment on above:Performed By: #### ANUJ UMICRO #### [facility] [address] [place] [address] Dr. Gasper Moreira #0.03 10e3/ulNormal0.00-0.03The [facility] HospitalComment on above:Performed By: #### JOANNE LESLIEICRO #### [facility] [address] [place] [address] Dr. Gasper Moreira %0.3 %Normal0.0-0.5The [facility] HospitalComment on above: Performed By: #### ANUJ UMICRO #### [facility] [address] [place] [address] Dr. Gasper Hagan #1.0 103/ulCritically low1.2-3.8The [facility] Comment on above:Performed By: #### ANUJ UMICRO #### [facility] [address] [place] [address] Dr. Gasper Snowmphocytes/100 WBC (Bld)10.8 %Critically low20.5-60.0The [facility] HospitalComment on above:Performed By: #### ANUJ UMICRO #### [facility] [address] [place] [address] Dr. Gasper MunguiaUAL DIFF REQNONormalThe [facility] HospitalComment on above: Performed By: #### ANUJ UMICRO #### [facility] [address] [place] [address] Dr. Gasper Zayas (RBC) [Entitic mass]31.2 rjXxfqak76.7-34.0The [facility] HospitalComment on above:Performed By: #### ANUJ UMICRO #### [facility] [address] [place] [address] Dr. Gasper Zayas (RBC) [Mass/Vol]32.3 g/tBDiyqhu57.9-35.2The [facility] HospitalComment on above:Performed By: #### ANUJ UMICRO #### [facility] [address] [place] [address] Dr. Gasper Zayas (RBC) [Entitic vol]96.5 wICtuxgw66.0-99.0The [facility] HospitalComment on above:Performed By: #### ANUJ UMICRO #### [facility] [address] [place] [address] Dr. Gasper Suarez #0.6 103/ulNormal0.3-0.8The [facility] HospitalComment on above:Performed By: #### ANUJ UMICRO #### [facility] [address] [place] [address] Dr. Gasper Laraocytes/100 WBC (Bld)7.2 %Normal1.7-12.0[facility] Comment on above:Performed By: #### ANUJ UMICRO #### [facility] [address] [place] [address] Dr. Gasper Brannon #7.1 103/ulCritically high1.4-6.5The [facility] Comment on above:Performed By: #### ANUJ UMICRO #### [facility] [address] [place] [address] Dr. Gasper Knowlesutrophils/100 WBC (Bld)80.6 %Critically high43.0-75.0The [facility] HospitalComment on above:Performed By: #### ANUJ UMICRO #### [facility] [address] [place] [address] Dr. Gasper GarberPlatelet mean volume (Bld) [Entitic vol]10.2 fLNormal9.5-13.5The [facility] HospitalComment on above:Performed By: #### ANUJ UMICRO #### [facility] [address] [place] [address] Dr. Gasper GarberPLT276 103/ucPflxqz251-198Qft [facility] HospitalComment on above: Performed By: #### ANUJ UMICRO #### [facility] [address] [place] [address] Dr. Gasper GarberRBC3.69 106/ulCritically low4.20-5.40The [facility] HospitalComment on above:Performed By: #### ANUJ UMICRO #### [facility] [address] [place] [address] Dr. Gasper GarberWBC8.8 103/ulNormal4.0-11.0The [facility] HospitalComment on above: Performed By: #### ANUJ UMICRO #### [facility] [address] [place] [address] Dr. Gasper GarberCT ABD/PELVIS WO CONon [id number] ABD/PELVIS WO CONEXAMINATION: CT ABD/PELVIS WO CON, [...] Electronically authenticated by: BELIA GAFFNEY Date: 2021-08-27 16:04[facility] URINE PROFILEon [id number] Ql (U)NegativeNormal NEGATIVEKettering Health Behavioral Medical Center on above:Performed By: #### ANUJ UMICRO #### [facility] [address] [address] [address] Gasper Mojica (U)CLEARNormalCLEARUniversity Hospitals Parma Medical CenterComselect specialty hospital on above: Performed By: #### ANUJ UMICRO #### [facility] [address] [address] [address] Gasper Webster (U)LT. YELLOWNormalYELLOWThe [facility] on above:Performed By: #### ERUR, UMICRO #### [facility] [address] [address] [address] Gasper Celis micrscopic examination will be performed if indicated. NormalThe [facility] HospitalComment on above:Performed By: #### TONI LESLIERO #### [facility] [address] [address] [address] Gaspre GarberGlucose Ql (U)NegativeNormalNEGATIVEMiddletown Hospital HospitalComment on above:Performed By: #### TONI LESLIERO #### [facility] [address] [place] [address] Dr. Gasper GarberHemoglobin Ql (U)NegativeNormalNEGATIVEUniversity [facility]als [facility] Comment on above:Performed By: #### BERNIE LESLIE #### [facility] [address] [place] [address] Dr. Gasper Siddiquiones Ql (U)NegativeNormalNEGATIVEUniversity Hospitals Parma Medical CenterComment on above:Performed By: #### TONI LESLIERO #### [facility] [address] [place] [address] Dr. Gasper GarberLEUKOCYTESNegativeNormalNEGATIVEUniversity Hospitals Parma Medical CenterComment on above:Performed By: #### BERNIE LESLIE #### [facility] [address] [place] [address] Dr. Gasper GarberNitrite Ql (U)NegativeNormalNEGATIVEUniversity Hospitals Parma Medical CenterComment on above:Performed By: #### TONI LESLIERO #### [facility] [address] [place] [address] Dr. Gasper GarberpH (U)6.5 [pH]Normal5-9The [facility] HospitalComment on above: Performed By: #### TONI LESLIERO #### [facility] [address] [place] [address] Dr. Gasper GarberProtein (U) [Mass/Vol]100 mg/dLAbnormalNEGATIVE/ TRACEThe [facility] HospitalComment on above:Performed By: #### TONI LESLIERO #### [facility] [address] [place] [address] Dr. Gasper GarberSPEC GRAVITY1.166Jnxioy1.005-<=1.025The [facility] HospitalComment on above:Performed By: #### BERNIE LESLIE #### [facility] [address] [place] [address] Dr. Gasper Hensley MICRO INDINDICATEDNormalThe [facility] HospitalComment on above: Performed By: #### TONI LESLIERO #### [facility] [address] [place] [address] Dr. Gasper Kernbilinogen Qn (U)0.2 {Kaushik'U}/dLNormal0.2 - 1.0The [facility] HospitalComment on above:Performed By: #### BERNIE LESLIE #### [facility] [address] [place] [address] Dr. Gasper GarberPROF CHEM 8 (BAS METB)on 07-73-7700Lhbyb gap [Moles/Vol]14.7 mmol/LNormalThe [facility] HospitalComment on above:Performed By: #### PT, PTT #### [facility] [address] [place] [address] Dr. Gasper GarberCalcium [Mass/Vol]10.1 mg/dLNormal8.5-10.1[facility] Comment on above:Performed By: #### PT, PTT #### [facility] [address] [place] [address] Dr. Gasper GarberChloride [Moles/Vol]105 mmol/WPsnoxj40-556Unr [facility] Comment on above:Performed By: #### PT, PTT #### [facility] [address] [place] [address] Dr. Gasper GarberCO2 [Moles/Vol]24.0 mmol/KVmukdn65.0-32.0The [facility] Comment on above:Performed By: #### PT, PTT #### [facility] [address] [place] [address] Dr. Gasper GarberCreatinine [Mass/Vol]1.56 mg/dLCritically high0.55-1.02The [facility] HospitalComment on above:Performed By: #### PT, PTT #### [facility] [address] [address] [address] Gasper RankinGFR-AF WXCIPBOY28 mL/min/1.31f6Doiukdlxvl low>=60The [facility] HospitalComment on above:Performed By: #### PT, PTT #### [facility] [address] [address] [address] Gasper RankinGFR-NON AF HECUNHVU23 mL/min/1.29s0Esctnppvym low>=60The [facility] HospitalComment on above:Performed By: #### PT, PTT #### [facility] [address] [place] [address] Dr. Gasper GarberGlucose [Mass/Vol]209 mg/dLCritically wnbs05-060Kin [facility] HospitalComment on above:Performed By: #### PT, PTT #### [facility] [address] [place] [address] Dr. Gasper GarberPotassium [Moles/Vol]4.7 mmol/LNormal3.5-5.1The [facility] Comment on above:Performed By: #### PT, PTT #### [facility] [address] [place] [address] Dr. Gasper Griderdium [Moles/Vol]139 mmol/YVcmhss813-773JheUniversity Hospitals Par[facility] Center Comment on above:Performed By: #### PT, PTT #### [facility] [address] [place] [address] Dr. Gasper GarberUrea nitrogen [Mass/Vol]16.0 mg/dLNormal7.0-18.0The [facility] HospitalComment on above:Performed By: #### PT, PTT #### [facility] [address] [place] [address] Dr. Gasper Aguayo nitrogen/Creatinine [Mass ratio]10.3 mg/mgNormalThe [facility] HospitalComment on above:Performed By: #### PT, PTT #### [facility] [address] [place] [address] Dr. Gasper Peres MICROSCOPIC ONLYon [id number]G SEEN [facility] CenterComselect specialty hospital on above:Performed By: #### ANUJ UMICRO #### [facility] [address] [place] [address] Dr. Gasper Crook identified Cx Nom (U)NOT INDICATEDNormalThFairfield Medical CenterComselect specialty hospital on above:Performed By: #### ANUJ UMICRO #### [facility] [address] [place] [address] Dr. Gasper Hopkins SEENNormalNONE SEENUniversity Hospitals Parma Medical CenterComselect specialty hospital on above:Performed By: #### ANUJ UMICRO #### [facility] [address] [place] [address] Dr. Gasper Connolly LM Nom (Urine sed)NONE SEENNormalNONE SEENUniversity Hospitals Parma Medical CenterComselect specialty hospital on above:Performed By: #### ANUJ UMICRO #### [facility] [address] [place] [address] Dr. Jackman ChangEpithelial cells LM Ql (Urine sed)FEWAbnormalNONE SEEN /RAREThe [facility] HospitalComselect specialty hospital on above:Performed By: #### ANUJ UMICRO #### [facility] [address] [place] [address] Dr. Gasper Benitez SEENNormalNONE SEENUniversity Hospitals Parma Medical CenterComselect specialty hospital on above:Performed By: #### ANUJ UMICRO #### [facility] [address] [place] [address] Dr. Gasper Holguin SEENAbnormal0-2[facility] CenterComselect specialty hospital on above: Performed By: #### ANUJ UMICRO #### [facility] [address] [place] [address] Dr. Gasper Chatman0-2AbnormalNONE SEENKettering Health Behavioral Medical Center on above: Performed By: #### ANUJ UMICRO #### [facility] [address] [place] [address] Dr. Gasper Trevino URINEon [id number] URINECulture Observations: Called to Chrystal Escamilla rn [...] <=10 S C Oxacillin >=4 R CNormalThe [facility] HospitalComment on above:Performed By: #### ACETON #### [facility] [address] [place] [address] Dr. Gasper Su AUTO DIFFon [id number] #0.0 103/ulNormal0.0-0.1[facility] CenterComment on above:Performed By: #### BERNIE LESLIE #### [facility] [address] [place] [address] Dr. Gasper Medelsophils/100 WBC (Bld)0.4 %Normal0.2-2.0[facility] Comment on above:Performed By: #### BERNIE LESLIE #### [facility] [address] [place] [address] Dr. Gasper Bennett #0.1 103/ulNormal0.0-0.7The [facility] HospitalComment on above: Performed By: #### BERNIE LESLIE #### [facility] [address] [place] [address] Dr. Gasper Rankinosinophils/100 WBC (Bld)1.0 %Normal0.9-7.0[facility] Comment on above:Performed By: #### BERNIE LESLIE #### [facility] [address] [place] [address] Dr. Gasper Rankinrythrocyte distribution width (RBC) [Ratio]12.5 %Fysfmg58.0-15.0 The [facility] HospitalComment on above:Performed By: #### JOANNE LESLIEICRO #### [facility] [address] [place] [address] Dr. Gasper GarberHematocrit (Bld) [Volume fraction]35.3 %Critically low36.0-48.0 The [facility] HospitalComment on above:Performed By: #### ANUJ UMICRO #### [facility] [address] [place] [address] Dr. Gasper GarberHemoglobin (Bld) [Mass/Vol]11.7 g/dLCritically low12.0-16.0The [facility] HospitalComment on above:Performed By: #### ANUJ UMICRO #### [facility] [address] [place] [address] Dr. Gasper Moreira #0.03 10e3/ulNormal0.00-0.03The [facility] HospitalComment on above:Performed By: #### ANUJ UMICRO #### [facility] [address] [place] [address] Dr. Gasper Moreira %0.3 %Normal0.0-0.5The [facility] HospitalComment on above: Performed By: #### ANUJ UMICRO #### [facility] [address] [place] [address] Dr. Gasper Hagan #0.9 103/ulCritically low1.2-3.8The [facility] Comment on above:Performed By: #### ANUJ UMICRO #### [facility] [address] [place] [address] Dr. Gasper Westhocytes/100 WBC (Bld)9.6 %Critically low20.5-60.0The [facility] HospitalComment on above:Performed By: #### ANUJ UMICRO #### [facility] [address] [place] [address] Dr. Gasper Bardales DIFF REQNONormalThe [facility] HospitalComment on above: Performed By: #### ANUJ UMICRO #### [facility] [address] [place] [address] Dr. Gasper Zayas (RBC) [Entitic mass]30.8 sbVmsysc51.7-34.0The [facility] HospitalComment on above:Performed By: #### ANUJ UMICRO #### [facility] [address] [place] [address] Dr. Gasper Zayas (RBC) [Mass/Vol]33.1 g/jQFnxzuv00.9-35.2The [facility] HospitalComment on above:Performed By: #### ANUJ UMICRO #### [facility] [address] [place] [address] Dr. Gasper Zayas (RBC) [Entitic vol]92.9 gJMgxrgi44.0-99.0The [facility] HospitalComment on above:Performed By: #### ANUJ UMICRO #### [facility] [address] [place] [address] Dr. Gasper Suarez #0.9 103/ulCritically high0.3-0.8ThFairfield Medical Center Comment on above:Performed By: #### ANUJ UMICRO #### [facility] [address] [place] [address] Dr. Gasper Laraocytes/100 WBC (Bld)9.3 %Normal1.7-12.0[facility] Comment on above:Performed By: #### ANUJ UMICRO #### [facility] [address] [place] [address] Dr. Gasper Brannon #7.7 103/ulCritically high1.4-6.5The [facility] Comment on above:Performed By: #### ANUJ UMICRO #### [facility] [address] [place] [address] Dr. Gasper Knowlesutrophils/100 WBC (Bld)79.4 %Critically high43.0-75.0The [facility] HospitalComment on above:Performed By: #### TONI LESLIERO #### [facility] [address] [place] [address] Dr. Gasper Paz mean volume (Bld) [Entitic vol]10.1 fLNormal9.5-13.5The [facility] HospitalComment on above:Performed By: #### TONI LESLIERO #### [facility] [address] [place] [address] Dr. Gasper GarberPLT302 103/wsJdrgdt089-153Ozt [facility] HospitalComment on above: Performed By: #### TONI LESLIERO #### [facility] [address] [place] [address] Dr. Gasper OlmosC3.80 106/ulCritically low4.20-5.40The [facility] HospitalComselect [facility] hospital on above:Performed By: #### TONI LESLIERO #### [facility] [address] [place] [address] Dr. Gasper GarberWBC9.7 103/ulNormal4.0-11.0[facility] on above: Performed By: #### TONI LESLIERO #### [facility] [address] [place] [address] Dr. Gasper Purvis URINE PROFILEon 53-77-8444Cgekkscon Ql (U)NegativeNormal NEGATIVEUniversity Hospitals Parma Medical CenterComselect specialty hospital on above:Performed By: #### UARMICR #### [facility] [address] [place] [address] Dr. Gasper Mojica (U)CLEARNormalCLEARThe [facility] HospitalComselect [facility] hospital on above: Performed By: #### UARMICR #### [facility] [address] [place] [address] Dr. Gasper Webster (U)LT. YELLOWNormalYELLOWUniversity Hospitals Parma Medical CenterComment on above:Performed By: #### UARMICR #### [facility] [address] [place] [address] Dr. Yilan ChangERUAHDA micrscopic examination will be performed if indicated. NormalThe [facility] HospitalComment on above:Performed By: #### UARMICR #### [facility] [address] [place] [address] Dr. Gasper GarberGlucose Ql (U)NegativeNormalNEGATIVEUniversity Hospitals Parma Medical CenterComment on above:Performed By: #### UARMICR #### [facility] [address] [place] [address] Dr. Gasper GarberHemoglobin Ql (U)NegativeNormalNEGATIVEUniversity [facility]als [facility] Comment on above:Performed By: #### UARMICR #### [facility] [address] [place] [address] Dr. Gasper GarberKetones Ql (U)NegativeNormalNEGATIVEUniversity Hospitals Parma Medical CenterComment on above:Performed By: #### UARMICR #### [facility] [address] [place] [address] Dr. Gasper GarberLEUKOCYTESMODERATEAbnormalNEGATIVEUniversity Hospitals Parma Medical CenterComment on above:Performed By: #### UARMICR #### [facility] [address] [place] [address] Dr. Gasper GarberNitrite Ql (U)NegativeNormalNEGATIVEUniversity Hospitals Parma Medical CenterComment on above:Performed By: #### UARMICR #### [facility] [address] [place] [address] Dr. Gasper GarberpH (U)7.0 [pH]Normal5-9[facility] Medical CenterComment on above: Performed By: #### UARMICR #### [facility] [address] [place] [address] Dr. Gasper GarberSPEC GRAVITY1.389Fcrufa7.005-<=1.025[facility] Parma Medical CenterComment on above:Performed By: #### UARMICR #### [facility] [address] [place] [address] Dr. Gasper GarberUA PROTEINNegativeNormalNEGATIVE/ TRACEUniversity Hospitals Parma Medical Center Comment on above:Performed By: #### UARMICR #### [facility] [address] [place] [address] Dr. Gasper Hensley MICRO INDINDICATEDNormalThe [facility] HospitalComment on above: Performed By: #### UARMICR #### [facility] [address] [place] [address] Dr. Gasper Kernbilinogen Qn (U)0.2 {Kaushik'U}/dLNormal0.2 - 1.0The [facility] HospitalComment on above:Performed By: #### UARMICR #### [facility] [address] [place] [address] Dr. Gasper GarberPROF 14(COMP METB)on 95-26-3061Mqumkpr [Mass/Vol]3.9 g/dLNormal 3.4-5.0The [facility] HospitalComment on above:Performed By: #### PT, PTT #### [facility] [address] [place] [address] Dr. Gasper GarberAlbumin/Globulin [Mass ratio]1.2 {ratio}NormalThe [facility] HospitalComment on above:Performed By: #### PT, PTT #### [facility] [address] [place] [address] Dr. Gasper Boss [Catalytic activity/Vol]70 U/AOvoniw45-783Zmh [facility] on above:Performed By: #### PT, PTT #### [facility] [address] [place] [address] Dr. Gasper Alamo [Catalytic activity/Vol]44 U/LSdapdr02-93Sqv [facility] on above:Performed By: #### PT, PTT #### [facility] [address] [place] [address] Dr. Gasper Danielle gap [Moles/Vol]17.7 mmol/LNormalThe [facility] on above:Performed By: #### PT, PTT #### [facility] [address] [place] [address] Dr. Gasper Abreu [Catalytic activity/Vol]31 U/MJkmpjf40-52Uyh Ten HospitalComment on above:Performed By: #### PT, PTT #### [facility] [address] [address] [address] Gasper GarberBilirubin [Mass/Vol]0.6 mg/dLNormal0.2-1.0[facility] Comment on above:Performed By: #### PT, PTT #### [facility] [address] [place] [address] Dr. Gasper GarberCalcium [Mass/Vol]9.9 mg/dLNormal8.5-10.1The [facility] Comment on above:Performed By: #### PT, PTT #### [facility] [address] [place] [address] Dr. Gasper GarberChloride [Moles/Vol]99 mmol/LJjjhge33-400GqxUniversity Hospitals [facility] Comment on above:Performed By: #### PT, PTT #### [facility] [address] [place] [address] Dr. Gasper GarberCO2 [Moles/Vol]24.4 mmol/DZjxcdx59.0-32.0The [facility] Comment on above:Performed By: #### PT, PTT #### [facility] [address] [place] [address] Dr. Gasper GarberCreatinine [Mass/Vol]3.08 mg/dLCritically high0.55-1.02The [facility] HospitalComment on above:Performed By: #### PT, PTT #### [facility] [address] [place] [address] Dr. Gasper RankinGFR-AF HLZWMSLI45 mL/min/1.04q0Zhgpzopjxa low>=60The [facility] HospitalComment on above:Performed By: #### PT, PTT #### [facility] [address] [place] [address] Dr. Gasper RankinGFR-NON AF UBABDLMX10 mL/min/1.37k3Agrkuhpvpl low>=60The [facility] HospitalComment on above:Performed By: #### PT, PTT #### [facility] [address] [place] [address] Dr. Gasper GarberGlobulin (S) [Mass/Vol]3.2 g/dLNormUniversity Hospitals Beachwood Medical CenterComment on above:Performed By: #### PT, PTT #### [facility] [address] [place] [address] Dr. Gasper GarberGlucose [Mass/Vol]158 mg/dLCritically vfii04-290Dmd [facility] HospitalComment on above:Performed By: #### PT, PTT #### [facility] [address] [place] [address] Dr. Gasper GarberPotassium [Moles/Vol]4.1 mmol/LNormal3.5-5.1The [facility] Comment on above:Performed By: #### PT, PTT #### [facility] [address] [place] [address] Dr. Gasper GarberProtein [Mass/Vol]7.1 g/dLNormal6.4-8.2The [facility] Comment on above:Performed By: #### PT, PTT #### [facility] [address] [place] [address] Dr. Gasper GarberSodium [Moles/Vol]137 mmol/OMaghqg326-718Zxf [facility] Comment on above:Performed By: #### PT, PTT #### [facility] [address] [place] [address] Dr. Gsaper GarberUrea nitrogen [Mass/Vol]48.0 mg/dLCritically high7.0-18.0The [facility] HospitalComment on above:Performed By: #### PT, PTT #### [facility] [address] [place] [address] Dr. Gasper GarberUrea nitrogen/Creatinine [Mass ratio]15.6 mg/mgNoOhioHealth Arthur G.H. Bing, MD, Cancer CenterComment on above:Performed By: #### PT, PTT #### [facility] [address] [place] [address] Dr. Gasper Aguayo, HIGH SENSITIVITYon 70-68-0185MZVUXJ37.7 pg/mLNormal 4.0-51.3The [facility] HospitalComment on above:Result Comment: CUT-OFF POINTS HAVE BEEN ESTABLISHED BASED ON THE FOURTH UNIVERSAL DEFINITIONS OF MYOCARDIAL INFARCTION. THE UPPER REFERENCE LIMIT (URL) OF TROPONIN, DEFINED THE 99TH PERCENTILE OF cTnI DISTRIBUTION IN A REFERENCE POPULATION, HAS BEEN CONFIRMED THE DECISION THRESHOLD FOR PR DIAGNOSIS.Performed By: #### PT, PTT #### [facility] [address] [place] [address] Dr. Gasper MAURICIOon 44-37-6017ZTUYAVYRCXDTAYkbnldnaSLAU SEEN [facility] CenterComselect specialty hospital on above:Performed By: #### UARMICR #### [facility] [address] [place] [address] Dr. Gasper Crook identified Cx Nom (U)INDICATEDSumma Health Barberton CampusComselect specialty hospital on above:Performed By: #### UARMICR #### [facility] [address] [place] [address] Dr. Gasper Hopkins SEENNormalNONE SEENKettering Health Behavioral Medical Center on above:Performed By: #### UARMICR #### [facility] [address] [place] [address] Dr. Gasper Lamystals LM Nom (Urine sed)NONE SEENNormalNONE SEENUniversity Hospitals Parma Medical CenterComselect specialty hospital on above:Performed By: #### UARMICR #### [facility] [address] [place] [address] Dr. Jackman ChangEpithelial cells LM Ql (Urine sed)FEWAbnormalNONE SEEN /RAREThe [facility] on above:Performed By: #### UARMICR #### [facility] [address] [place] [address] Dr. Gasper TorresE SEENNormalNONE SEENUniversity Hospitals Parma Medical CenterComselect specialty hospital on above:Performed By: #### UARMICR #### [facility] [address] [place] [address] Dr. Gasper LockettUfqpmUFW9-0Gmfbxl7-8Asr [facility] on above:Performed By: #### UARMICR #### [facility] [address] [place] [address] Dr. Gasper VinsonOtnxwEII66-61PhpqgopdFKKG SEENThe [facility] HospitalComment on above: Performed By: #### UARMICR #### [facility] [address] [place] [address] Dr. Gasper GarberPROF CHEM 8 (BAS METB)on 93-18-4880Wyhoz gap [Moles/Vol]13.5 mmol/LNormalThe [facility] HospitalComment on above:Performed By: #### PT, PTT #### [facility] [address] [place] [address] Dr. Gasper GarberCalcium [Mass/Vol]9.6 mg/dLNormal8.5-10.1The [facility] Comment on above:Performed By: #### PT, PTT #### [facility] [address] [place] [address] Dr. Gasper GarberChloride [Moles/Vol]102 mmol/ESzzlrq72-342Dhu [facility] Comment on above:Performed By: #### PT, PTT #### [facility] [address] [place] [address] Dr. Gasper GarberCO2 [Moles/Vol]29.0 mmol/VGtzsbb54.0-32.0The [facility] Comment on above:Performed By: #### PT, PTT #### [facility] [address] [place] [address] Dr. Gasper GarberCreatinine [Mass/Vol]2.05 mg/dLCritically high0.55-1.02The [facility] HospitalComment on above:Performed By: #### PT, PTT #### [facility] [address] [place] [address] Dr. Gasper RankinGFR-AF PDMQTHZZ78 mL/min/1.46i0Mtsxrkramx low>=60The [facility] HospitalComment on above:Performed By: #### PT, PTT #### [facility] [address] [place] [address] Dr. Gasper RankinGFR-NON AF CDNAFDIM58 mL/min/1.47d2Kueizpkfoa low>=60The [facility] HospitalComment on above:Performed By: #### PT, PTT #### [facility] [address] [address] [address] Gasper GarberGlucose [Mass/Vol]203 mg/dLCritically fadl76-528Wtu [facility] HospitalComment on above:Performed By: #### PT, PTT #### [facility] [address] [address] [address] Gasper GarberPotassium [Moles/Vol]4.5 mmol/LNormal3.5-5.1The [facility] Comment on above:Performed By: #### PT, PTT #### [facility] [address] [address] [address] Gasper GarberSodium [Moles/Vol]140 mmol/BAjiaeu683-952Mpu [facility] Comment on above:Performed By: #### PT, PTT #### [facility] [address] [place] [address] Dr. Gasper GarberUrea nitrogen [Mass/Vol]34.0 mg/dLCritically high7.0-18.0The [facility] HospitalComment on above:Performed By: #### PT, PTT #### [facility] [address] [place] [address] Dr. Gasper Aguayo nitrogen/Creatinine [Mass ratio]16.6 mg/mgNormalThe [facility] HospitalComment on above:Performed By: #### PT, PTT #### [facility] [address] [place] [address] Dr. Gasper Wilson 11-71-8236Qtdgofssmoj peptide B (Bld) [Mass/Vol]1454.0 pg/mLCritically high<=900.0The [facility] HospitalComment on above:Performed By: #### TONI LESLIERO #### [facility] [address] [place] [address] Dr. Gasper Su AUTO DIFFon 05-64-0438SRNL #0.1 103/ulNormal0.0-0.1The [facility] HospitalComment on above:Performed By: #### JOANNE LESLIEICRO #### [facility] [address] [place] [address] Dr. Yilan ChangBasophils/100 WBC (Bld)0.7 %Normal0.2-2.0The [facility] Comment on above:Performed By: #### TONI LESLIERO #### [facility] [address] [place] [address] Dr. Gasper Bennett #0.3 103/ulNormal0.0-0.7The [facility] HospitalComment on above: Performed By: #### ANUJ UMICRO #### [facility] [address] [place] [address] Dr. Gasper Rankinosinophils/100 WBC (Bld)4.3 %Normal0.9-7.0The [facility] Comment on above:Performed By: #### ANUJ UMICRO #### [facility] [address] [place] [address] Dr. Gasper Rankinrythrocyte distribution width (RBC) [Ratio]13.0 %Iemema93.0-15.0 The [facility] HospitalComment on above:Performed By: #### ANUJ UMICRO #### [facility] [address] [place] [address] Dr. Gasper GarberHematocrit (Bld) [Volume fraction]34.5 %Critically low36.0-48.0 The [facility] HospitalComment on above:Performed By: #### JOANNE LESLIEICRO #### [facility] [address] [place] [address] Dr. Gasper GarberHemoglobin (Bld) [Mass/Vol]11.0 g/dLCritically low12.0-16.0The [facility] HospitalComment on above:Performed By: #### ANUJ UMICRO #### [facility] [address] [place] [address] Dr. Gasper Moreira #0.02 10e3/ulNormal0.00-0.03The [facility] HospitalComment on above:Performed By: #### ANUJ UMICRO #### [facility] [address] [place] [address] Dr. Gasper Moreira %0.3 %Normal0.0-0.5The [facility] HospitalComment on above: Performed By: #### BERNIE LESLIE #### [facility] [address] [place] [address] Dr. Gasper Hagan #1.1 103/ulCritically low1.2-3.8The [facility] Comment on above:Performed By: #### TONI LESLIERO #### [facility] [address] [place] [address] Dr. Gasper Westhocytes/100 WBC (Bld)14.3 %Critically low20.5-60.0The [facility] HospitalComment on above:Performed By: #### TONI LESLIERO #### [facility] [address] [place] [address] Dr. Gasper Bardales DIFF REQNONormalThe [facility] HospitalComment on above: Performed By: #### TONI LESLIERO #### [facility] [address] [place] [address] Dr. Gasper Zayas (RBC) [Entitic mass]30.9 udQqmpxy82.7-34.0The [facility] HospitalComment on above:Performed By: #### TONI LESLIERO #### [facility] [address] [place] [address] Dr. Gasper Zayas (RBC) [Mass/Vol]31.9 g/wEXgxjiv04.9-35.2The [facility] HospitalComment on above:Performed By: #### TONI LESLIERO #### [facility] [address] [place] [address] Dr. Gasper Zayas (RBC) [Entitic vol]96.9 sXCmzllk66.0-99.0The [facility] HospitalComment on above:Performed By: #### ANUJ UMICRO #### [facility] [address] [place] [address] Dr. Gasper Suarez #0.7 103/ulNormal0.3-0.8The [facility] HospitalComment on above:Performed By: #### ANUJ UMICRO #### [facility] [address] [place] [address] Dr. Gasper Laraocytes/100 WBC (Bld)9.3 %Normal1.7-12.0The [facility] Comment on above:Performed By: #### ANUJ UMICRO #### [facility] [address] [place] [address] Dr. Gasper KnowlesUT #5.4 103/ulNormal1.4-6.5The [facility] HospitalComment on above:Performed By: #### ANUJ UMICRO #### [facility] [address] [place] [address] Dr. Gasper Knowlesutrophils/100 WBC (Bld)71.1 %Ibveqt58.0-75.0The [facility] HospitalComment on above:Performed By: #### ANUJ UMICRO #### [facility] [address] [place] [address] Dr. Gasper GarberPlatelet mean volume (Bld) [Entitic vol]10.2 fLNormal9.5-13.5The [facility] HospitalComment on above:Performed By: #### ANUJ UMICRO #### [facility] [address] [place] [address] Dr. Gasper GarberPLT284 103/iyWyaoci446-101Hul [facility] HospitalComment on above: Performed By: #### ANUJ UMICRO #### [facility] [address] [place] [address] Dr. Gasper GarberRBC3.56 106/ulCritically low4.20-5.40The [facility] HospitalComment on above:Performed By: #### ANUJ UMICRO #### [facility] [address] [place] [address] Dr. Gasper GarberWBC7.6 103/ulNormal4.0-11.0The [facility] HospitalComment on above: Performed By: #### ANUJ UMICRO #### [facility] [address] [place] [address] Dr. Gasper Valdivia CHEM 8 (BAS METB)on 08-24-8814Stkfm gap [Moles/Vol]15.3 mmol/LNormalThe [facility] HospitalComment on above:Performed By: #### ANUJ UMICRO #### [facility] [address] [address] [address] Gasper GarberCalcium [Mass/Vol]9.1 mg/dLNormal8.5-10.1The [facility] Comment on above:Performed By: #### ANUJ UMICRO #### [facility] [address] [address] [address] Gasper GarberChloride [Moles/Vol]100 mmol/XZdwarx61-281SbgUniversity Hospitals Parma [facility] Center Comment on above:Performed By: #### ANUJ UMICRO #### [facility] [address] [place] [address] Dr. Gasper GarberCO2 [Moles/Vol]26.8 mmol/GKruhjv87.0-32.0The [facility] Comment on above:Performed By: #### ANUJ UMICRO #### [facility] [address] [address] [address] Gasper GarberCreatinine [Mass/Vol]2.83 mg/dLCritically high0.55-1.02The [facility] HospitalComment on above:Performed By: #### ANUJ UMICRO #### [facility] [address] [address] [address] Gasper RankinGFR-AF FRJHKPXY47 mL/min/1.77q7Cyragcmksm low>=60The [facility] HospitalComment on above:Performed By: #### ERUR, UMICRO #### [facility] [address] [address] [address] Gasper RankinGFR-NON AF MSACJHUV04 mL/min/1.37i6Asoiowtchq low>=60The [facility] HospitalComment on above:Performed By: #### ERUR, UMICRO #### [facility] [address] [address] [address] Gasper GarberGlucose [Mass/Vol]141 mg/dLCritically svkx33-729Mom [facility] HospitalComment on above:Performed By: #### BERNIE LESLIE #### [facility] [address] [place] [address] Dr. Gasper GarberPotassium [Moles/Vol]4.1 mmol/LNormal3.5-5.1[facility] Comment on above:Performed By: #### BERNIE LESLIE #### [facility] [address] [place] [address] Dr. Gasper GarberSodium [Moles/Vol]138 mmol/CNigzmw636-223GppUniversity Hospitals Parma Medical Center Comment on above:Performed By: #### BERNIE LESLIE #### [facility] [address] [place] [address] Dr. Gasper GarberUrea nitrogen [Mass/Vol]48.0 mg/dLCritically high7.0-18.0The [facility] HospitalComment on above:Performed By: #### BERNIE LESLIE #### [facility] [address] [place] [address] Dr. Gasper GarberUrea nitrogen/Creatinine [Mass ratio]17.0 mg/mgNormalThFairfield Medical CenterComment on above:Performed By: #### BERNIE LESLIE #### [facility] [address] [place] [address] Dr. Gasper GarberCULTVALERIA URINEon 22-86-8014DBPUDNC URINEIsolate 1 Klebsiella pneumoniae >100,000 cfu/mL of [...] Nitrofurantoin 64 I F Trimethoprim/Sulfamethoxazole <=20 S FNormalUniversity Hospitals Parma Medical CenterComment on above:Performed By: #### ACETON #### [facility] [address] [place] [address] Dr. Gasper Wilson 24-17-4641Qpfhoifzwql peptide B (Bld) [Mass/Vol]2592.0 pg/mLCritically high<=900.0The [facility] HospitalComment on above:Performed By: #### URCX #### [facility] [address] [place] [address] Dr. Gasper Su AUTO DIFFon 09-40-5060HYBY #0.0 103/ulNormal0.0-0.1The [facility] HospitalComment on above:Performed By: #### LACT #### [facility] [address] [place] [address] Dr. Gasper GarberBasophils/100 WBC (Bld)0.4 %Normal0.2-2.0The [facility] Comment on above:Performed By: #### LACT #### [facility] [address] [place] [address] Dr. Gasper Bennett #0.3 103/ulNormal0.0-0.7The [facility] Anthony's Hospitalment on above: Performed By: #### LACT #### [facility] [address] [place] [address] Dr. Gasper Rankinosinophils/100 WBC (Bld)4.3 %Normal0.9-7.0The [facility] Comment on above:Performed By: #### LACT #### [facility] [address] [place] [address] Dr. Gasper Rankinrythrocyte distribution width (RBC) [Ratio]12.5 %Wgnpnx33.0-15.0 The [facility] HospitalComment on above:Performed By: #### LACT #### [facility] [address] [place] [address] Dr. Gasper GarberHematocrit (Bld) [Volume fraction]30.3 %Critically low36.0-48.0 The [facility] HospitalComment on above:Performed By: #### LACT #### [facility] [address] [address] [address] Gasper GarberHemoglobin (Bld) [Mass/Vol]9.8 g/dLCritically low12.0-16.0The [facility] HospitalComment on above:Performed By: #### LACT #### [facility] [address] [place] [address] Dr. Gasper Moreira #0.02 10e3/ulNormal0.00-0.03The [facility] HospitalComment on above:Performed By: #### LACT #### [facility] [address] [place] [address] Dr. Gasper Moreira %0.3 %Normal0.0-0.5The [facility] HospitalComment on above: Performed By: #### LACT #### [facility] [address] [place] [address] Dr. Gasper Hagan #1.5 103/ulNormal1.2-3.8The [facility] HospitalComment on above:Performed By: #### LACT #### [facility] [address] [place] [address] Dr. Gasper Westhocytes/100 WBC (Bld)19.8 %Critically low20.5-60.0The [facility] HospitalComselect [facility] hospital on above:Performed By: #### LACT #### [facility] [address] [place] [address] Dr. Gasper MunguiaUAL DIFF REQNONormalThe [facility] HospitalComment on above: Performed By: #### LACT #### [facility] [address] [place] [address] Dr. Gasper Zayas (RBC) [Entitic mass]31.3 gtDvmque84.7-34.0The [facility] HospitalComment on above:Performed By: #### LACT #### [facility] [address] [place] [address] Dr. Gasper Zayas (RBC) [Mass/Vol]32.3 g/oFKgaavw27.9-35.2The [facility] HospitalComment on above:Performed By: #### LACT #### [facility] [address] [place] [address] Dr. Gasper ZayasV (RBC) [Entitic vol]96.8 bOTuaclh92.0-99.0The [facility] HospitalComment on above:Performed By: #### LACT #### [facility] [address] [place] [address] Dr. Gasper Suarez #0.9 103/ulCritically high0.3-0.8The [facility] Comment on above:Performed By: #### LACT #### [facility] [address] [place] [address] Dr. Gasper Laraocytes/100 WBC (Bld)11.7 %Normal1.7-12.0[facility] Comment on above:Performed By: #### LACT #### [facility] [address] [place] [address] Dr. Gasper Brannon #4.8 103/ulNormal1.4-6.5The [facility] HospitalComment on above:Performed By: #### LACT #### [facility] [address] [place] [address] Dr. Gasper Knowlesutrophils/100 WBC (Bld)63.5 %Amioui94.0-75.0The [facility] HospitalComment on above:Performed By: #### LACT #### [facility] [address] [place] [address] Dr. Gasper Andrelet mean volume (Bld) [Entitic vol]10.9 fLNormal9.5-13.5The [facility] HospitalComment on above:Performed By: #### LACT #### [facility] [address] [place] [address] Dr. Gasper GarberPLT193 103/jzDfuyve634-338Toa [facility] HospitalComment on above: Performed By: #### LACT #### [facility] [address] [place] [address] Dr. Gasper GarberRBC3.13 106/ulCritically low4.20-5.40The [facility] HospitalComment on above:Performed By: #### LACT #### [facility] [address] [address] [address] Gasper GarberWBC7.5 103/ulNormal4.0-11.0The [facility] HospitalComment on above: Performed By: #### LACT #### [facility] [address] [place] [address] Dr. Gasper GarberPOINT OF CARE GLUCOSEon 63-29-9800Pqtknpc [Mass/Vol]244 mg/dL Critically jjci22-548Uwk [facility] HospitalComment on above:Performed By: #### LACT #### [facility] [address] [place] [address] Dr. Gasper GarberGlucose [Mass/Vol]151 mg/dLCritically fsrh39-213Efd [facility] HospitalComment on above:Performed By: #### ERURBERNIE #### [facility] [address] [place] [address] Dr. Gasper GarberPROF 14(COMP METB)on 91-89-5014Jjldnes [Mass/Vol]2.9 g/dL Critically low3.4-5.0The [facility] HospitalComment on above:Performed By: #### URCX #### [facility] [address] [place] [address] Dr. Gasper GarberAlbumin/Globulin [Mass ratio]1.0 {ratio}NormalThe [facility] HospitalComment on above:Performed By: #### URCX #### [facility] [address] [place] [address] Dr. Gasper Boss [Catalytic activity/Vol]63 U/CEoswbu05-046Kpu [facility] HospitalComment on above:Performed By: #### URCX #### [facility] [address] [place] [address] Dr. Gasper Alamo [Catalytic activity/Vol]33 U/MZxuxlm46-02Psb [facility] HospitalComment on above:Performed By: #### URCX #### [facility] [address] [place] [address] Dr. Gasper Danielle gap [Moles/Vol]13.1 mmol/LNormalThe [facility] Comment on above:Performed By: #### URCX #### [facility] [address] [place] [address] Dr. Gasper GarberAST [Catalytic activity/Vol]30 U/GRjxtgc12-47Jhs [facility] HospitalComment on above:Performed By: #### URCX #### [facility] [address] [place] [address] Dr. Gasper GarberBilirubin [Mass/Vol]0.3 mg/dLNormal0.2-1.0[facility] Comment on above:Performed By: #### URCX #### [facility] [address] [place] [address] Dr. Gasper GarberCalcium [Mass/Vol]8.7 mg/dLNormal8.5-10.1[facility] Comment on above:Performed By: #### URCX #### [facility] [address] [place] [address] Dr. Gasper GarberChloride [Moles/Vol]109 mmol/LCritically domz96-789Cdt [facility] HospitalComment on above:Performed By: #### URCX #### [facility] [address] [place] [address] Dr. Gasper GarberCO2 [Moles/Vol]24.5 mmol/CAdtrti41.0-32.0[facility] Comment on above:Performed By: #### URCX #### [facility] [address] [place] [address] Dr. Gasper GarberCreatinine [Mass/Vol]1.33 mg/dLCritically high0.55-1.02The [facility] HospitalComment on above:Performed By: #### URCX #### [facility] [address] [place] [address] Dr. Gasper RankinGFR-AF VKPDIOZK46 mL/min/1.78u7Tazwtzvdru low>=60The [facility] HospitalComment on above:Performed By: #### URCX #### [facility] [address] [place] [address] Dr. Yilan ChangEGFR-NON AF TZAJFAQG88 mL/min/1.59p6Nwwkzqhcyg low>=60The [facility] HospitalComment on above:Performed By: #### URCX #### [facility] [address] [place] [address] Dr. Gasper GarberGlobulin (S) [Mass/Vol]3.0 g/dLNoOhioHealth Arthur G.H. Bing, MD, Cancer CenterComment on above:Performed By: #### URCX #### [facility] [address] [place] [address] Dr. Gasper GarberGlucose [Mass/Vol]142 mg/dLCritically lcyw27-148Mos [facility] HospitalComment on above:Performed By: #### URCX #### [facility] [address] [place] [address] Dr. Gasper GarberPotassium [Moles/Vol]3.6 mmol/LNormal3.5-5.1The [facility] Comment on above:Performed By: #### URCX #### [facility] [address] [place] [address] Dr. Gasper GarberProtein [Mass/Vol]5.9 g/dLCritically low6.4-8.2The [facility] HospitalComment on above:Performed By: #### URCX #### [facility] [address] [place] [address] Dr. Gasper GarberSodium [Moles/Vol]143 mmol/WJnkygl570-800Qnt [facility] Comment on above:Performed By: #### URCX #### [facility] [address] [place] [address] Dr. Gasper GarberUrea nitrogen [Mass/Vol]25.0 mg/dLCritically high7.0-18.0The [facility] HospitalComment on above:Performed By: #### URCX #### [facility] [address] [place] [address] Dr. Gasper GarberUrea nitrogen/Creatinine [Mass ratio]18.8 mg/mgNoOhioHealth Arthur G.H. Bing, MD, Cancer CenterComment on above:Performed By: #### URCX #### [facility] [address] [place] [address] Dr. Gasper Wilson [id number] peptide B (Bld) [Mass/Vol]761.0 pg/mL Normal<=900.0[facility] CenterComment on above:Performed By: #### PT, PTT #### [facility] [address] [place] [address] Dr. Gasper Su AUTO DIFFon 74-45-5607SLCR #0.1 103/ulNormal0.0-0.1The [facility] HospitalComment on above:Performed By: #### LACT #### [facility] [address] [place] [address] Dr. Gasper GarberBasophils/100 WBC (Bld)0.6 %Normal0.2-2.0[facility] Comment on above:Performed By: #### LACT #### [facility] [address] [place] [address] Dr. Gasper Bennett #0.2 103/ulNormal0.0-0.7The [facility] HospitalComment on above: Performed By: #### LACT #### [facility] [address] [place] [address] Dr. Gasper GarberPerformed By: #### PT, PTT #### [facility] [address] [place] [address] Dr. Gasper Rankinosinophils/100 WBC (Bld)2.3 %Normal0.9-7.0[facility] Comment on above:Performed By: #### LACT #### [facility] [address] [place] [address] Dr. Gasper Rankinrythrocyte distribution width (RBC) [Ratio]12.3 %Kfscbp74.0-15.0 The [facility] HospitalComment on above:Performed By: #### LACT #### [facility] [address] [place] [address] Dr. Gasper GarberHematocrit (Bld) [Volume fraction]32.3 %Critically low36.0-48.0 The [facility] HospitalComment on above:Performed By: #### LACT #### [facility] [address] [address] [address] Gasper GarberHemoglobin (Bld) [Mass/Vol]10.3 g/dLCritically low12.0-16.0The [facility] HospitalComment on above:Performed By: #### LACT #### [facility] [address] [place] [address] Dr. Gasper Moreira #0.01 10e3/ulNormal0.00-0.03The [facility] HospitalComment on above:Performed By: #### LACT #### [facility] [address] [place] [address] Dr. Gasper Moreira %0.1 %Normal0.0-0.5The [facility] HospitalComment on above: Performed By: #### LACT #### [facility] [address] [place] [address] Dr. Gasper Hagan #1.1 103/ulCritically low1.2-3.8The [facility] Comment on above:Performed By: #### LACT #### [facility] [address] [place] [address] Dr. Gasper Westhocytes/100 WBC (Bld)12.2 %Critically low20.5-60.0The [facility] HospitalComment on above:Performed By: #### LACT #### [facility] [address] [place] [address] Dr. Gasper MunguiaUAL DIFF REQNONormalThe [facility] HospitalComment on above: Performed By: #### LACT #### [facility] [address] [place] [address] Dr. Gasper GarberPerformed By: #### PT, PTT #### [facility] [address] [place] [address] Dr. Gasper Nix (RBC) [Entitic mass]30.8 wzXctxah90.7-34.0The [facility] HospitalComment on above:Performed By: #### LACT #### [facility] [address] [place] [address] Dr. Gasper Zayas (RBC) [Mass/Vol]31.9 g/cHUdyzdl78.9-35.2The [facility] HospitalComment on above:Performed By: #### LACT #### [facility] [address] [place] [address] Dr. Gasper Scott (RBC) [Entitic vol]96.7 bYEitkpl64.0-99.0The [facility] HospitalComment on above:Performed By: #### LACT #### [facility] [address] [place] [address] Dr. Gasper Suarez #0.8 103/ulNormal0.3-0.8The [facility] HospitalComment on above:Performed By: #### LACT #### [facility] [address] [place] [address] Dr. Gasper Laraocytes/100 WBC (Bld)8.8 %Normal1.7-12.0The [facility] Comment on above:Performed By: #### LACT #### [facility] [address] [place] [address] Dr. Gasper Brannon #6.5 103/ulNormal1.4-6.5The [facility] HospitalComment on above:Performed By: #### LACT #### [facility] [address] [place] [address] Dr. Gasper Knowlesutrophils/100 WBC (Bld)76.0 %Critically high43.0-75.0The [facility] HospitalComment on above:Performed By: #### LACT #### [facility] [address] [place] [address] Dr. Gasper Paz mean volume (Bld) [Entitic vol]10.6 fLNormal9.5-13.5The [facility] HospitalComment on above:Performed By: #### LACT #### [facility] [address] [place] [address] Dr. Gasper NicholsonT214 103/ghBtbccb903-062Udd [facility] HospitalComment on above: Performed By: #### LACT #### [facility] [address] [place] [address] Dr. Gasper OlmosC3.34 106/ulCritically low4.20-5.40The [facility] HospitalComment on above:Performed By: #### LACT #### [facility] [address] [address] [address] Gasper GarberWBC8.6 103/ulNormal4.0-11.0The [facility] HospitalComment on above: Performed By: #### LACT #### [facility] [address] [address] [address] Gasper MedelSO #0.0 103/ulNormal0.0-0.1The [facility] HospitalComment on above:Performed By: #### PT, PTT #### [facility] [address] [place] [address] Dr. Gasper GarberBasophils/100 WBC (Bld)0.4 %Normal0.2-2.0The [facility] Comment on above:Performed By: #### PT, PTT #### [facility] [address] [place] [address] Dr. Gasper Rankinosinophils/100 WBC (Bld)2.5 %Normal0.9-7.0The [facility] Comment on above:Performed By: #### PT, PTT #### [facility] [address] [place] [address] Dr. Gasper Rankinrythrocyte distribution width (RBC) [Ratio]12.4 %Tyahrn50.0-15.0 The [facility] HospitalComment on above:Performed By: #### PT, PTT #### [facility] [address] [place] [address] Dr. Gasper GarberHematocrit (Bld) [Volume fraction]29.3 %Critically low36.0-48.0 The [facility] HospitalComment on above:Performed By: #### PT, PTT #### [facility] [address] [place] [address] Dr. Gasper GarberHemoglobin (Bld) [Mass/Vol]9.5 g/dLCritically low12.0-16.0The [facility] HospitalComment on above:Performed By: #### PT, PTT #### [facility] [address] [place] [address] Dr. Gasper Moreira #0.02 10e3/ulNormal0.00-0.03The [facility] HospitalComment on above:Performed By: #### PT, PTT #### [facility] [address] [place] [address] Dr. Gasper Moreira %0.2 %Normal0.0-0.5The [facility] HospitalComselect specialty hospital on above: Performed By: #### PT, PTT #### [facility] [address] [place] [address] Dr. Gasper Hagan #1.3 103/ulNormal1.2-3.8The [facility] HospitalComselect specialty hospital on above:Performed By: #### PT, PTT #### [facility] [address] [place] [address] Dr. Gasper Westhocytes/100 WBC (Bld)16.4 %Critically low20.5-60.0The [facility] on above:Performed By: #### PT, PTT #### [facility] [address] [place] [address] Dr. Gasper Nix (RBC) [Entitic mass]31.3 jtNenljj05.7-34.0The [facility] Hospitalment on above:Performed By: #### PT, PTT #### [facility] [address] [place] [address] Dr. Gasper Zayas (RBC) [Mass/Vol]32.4 g/hKCerkve64.9-35.2The [facility] HospitalComment on above:Performed By: #### PT, PTT #### [facility] [address] [place] [address] Dr. Gasper Scott (RBC) [Entitic vol]96.4 uQRngbwp29.0-99.0The [facility] on above:Performed By: #### PT, PTT #### [facility] [address] [place] [address] Dr. Gasper Suarez #0.9 103/ulCritically high0.3-0.8The [facility] Comment on above:Performed By: #### PT, PTT #### [facility] [address] [place] [address] Dr. Gasper Laraocytes/100 WBC (Bld)10.5 %Normal1.7-12.0The [facility] Comment on above:Performed By: #### PT, PTT #### [facility] [address] [place] [address] Dr. Gasper Brannon #5.7 103/ulNormal1.4-6.5The [facility] HospitalComment on above:Performed By: #### PT, PTT #### [facility] [address] [place] [address] Dr. Gasper Knowlesutrophils/100 WBC (Bld)70.0 %Pbmrzu92.0-75.0The [facility] HospitalComment on above:Performed By: #### PT, PTT #### [facility] [address] [place] [address] Dr. Gasper Paz mean volume (Bld) [Entitic vol]10.9 fLNormal9.5-13.5The [facility] HospitalComment on above:Performed By: #### PT, PTT #### [facility] [address] [place] [address] Dr. Gasper GarberPLT203 103/ynNdirvm981-976May [facility] HospitalComment on above: Performed By: #### PT, PTT #### [facility] [address] [place] [address] Dr. Gasper GarberRBC3.04 106/ulCritically low4.20-5.40The [facility] HospitalComment on above:Performed By: #### PT, PTT #### [facility] [address] [place] [address] Dr. Gasper GarberWBC8.2 103/ulNormal4.0-11.0The [facility] HospitalComment on above: Performed By: #### PT, PTT #### [facility] [address] [place] [address] Dr. Gasper Trevino BLOODon 43-37-9697Yomhgtgqotc examination of blood, cultureCulture Observations: NO GROWTH AT 5 DAYS.NormalMiddletown Hospital HospitalComment on above:Performed By: #### BLDCX1 #### [facility] [address] [place] [address] Dr. Gasper GarberMicroscopic examination of blood, cultureCulture Observations: NO GROWTH AT 5 DAYS.NormalThe [facility] HospitalComment on above:Performed By: #### ACETON #### [facility] [address] [place] [address] Dr. Gasper GarberWASHINGTON [facility] GLUCOSEon 82-57-2424Yjrxkpj [Mass/Vol]155 mg/dL Critically ryii99-342Kuu [facility] HospitalComment on above:Performed By: #### PT, PTT #### [facility] [address] [place] [address] Dr. Gasper GarberGlucose [Mass/Vol]165 mg/dLCritically cilm50-525Vmb [facility] HospitalComment on above:Performed By: #### POCGLUC #### [facility] [address] [place] [address] Dr. Gasper GarberGlucose [Mass/Vol]232 mg/dLCritically pfmh37-498Srz [facility] HospitalComment on above:Performed By: #### ERUR, UMICRO #### [facility] [address] [place] [address] Dr. Gasper GarberPROF 14(COMP METB)on 54-06-7989Zdadera [Mass/Vol]2.9 g/dL Critically low3.4-5.0The [facility] HospitalComment on above:Performed By: #### PT, PTT #### [facility] [address] [place] [address] Dr. Gasper GarberAlbumin/Globulin [Mass ratio]1.0 {ratio}NormalUniversity Hospitals Parma Medical CenterComment on above:Performed By: #### PT, PTT #### [facility] [address] [place] [address] Dr. Gasper GómezP [Catalytic activity/Vol]62 U/OYixzhs58-694Huq [facility] HospitalComment on above:Performed By: #### PT, PTT #### [facility] [address] [place] [address] Dr. Gasper GómezT [Catalytic activity/Vol]34 U/QJnoemu38-84Jzq [facility] HospitalComment on above:Performed By: #### PT, PTT #### [facility] [address] [place] [address] Dr. Gasper Gunteron gap [Moles/Vol]10.8 mmol/LNormalUniversity [facility] Comment on above:Performed By: #### PT, PTT #### [facility] [address] [place] [address] Dr. Gasper GarberAST [Catalytic activity/Vol]14 U/LCritically ung73-02Inr [facility] HospitalComment on above:Performed By: #### PT, PTT #### [facility] [address] [place] [address] Dr. Gasper GarberBilirubin [Mass/Vol]0.4 mg/dLNormal0.2-1.0[facility] Comment on above:Performed By: #### PT, PTT #### [facility] [address] [place] [address] Dr. Gasper GarberCalcium [Mass/Vol]8.4 mg/dLCritically low8.5-10.1The [facility] HospitalComment on above:Performed By: #### PT, PTT #### [facility] [address] [place] [address] Dr. Gasper GarberChloride [Moles/Vol]105 mmol/BRmdrld84-408Uij [facility] Comment on above:Performed By: #### PT, PTT #### [facility] [address] [place] [address] Dr. Gsaper GarberCO2 [Moles/Vol]26.3 mmol/HLofwuf46.0-32.0The [facility] Comment on above:Performed By: #### PT, PTT #### [facility] [address] [place] [address] Dr. Gasper GarberCreatinine [Mass/Vol]2.20 mg/dLCritically high0.55-1.02The [facility] HospitalComment on above:Performed By: #### PT, PTT #### [facility] [address] [address] [address] Gasper RankinGFR-AF QCMLVSMF47 mL/min/1.13i8Rtxvkwzyhr low>=60The [facility] HospitalComment on above:Performed By: #### PT, PTT #### [facility] [address] [address] [address] Gasper RankinGFR-NON AF RLOCIUXF85 mL/min/1.37p0Qxhundqcua low>=60The [facility] HospitalComment on above:Performed By: #### PT, PTT #### [facility] [address] [place] [address] Dr. Gasper GarberGlobulin (S) [Mass/Vol]2.9 g/dLNormalThe [facility] HospitalComment on above:Performed By: #### PT, PTT #### [facility] [address] [place] [address] Dr. Gasper GarberGlucose [Mass/Vol]167 mg/dLCritically zugy70-770Ucm [facility] HospitalComment on above:Performed By: #### PT, PTT #### [facility] [address] [place] [address] Dr. Gasper GarberPotassium [Moles/Vol]3.1 mmol/LCritically low3.5-5.1The [facility] HospitalComment on above:Performed By: #### PT, PTT #### [facility] [address] [place] [address] Dr. Gasper GarberProtein [Mass/Vol]5.8 g/dLCritically low6.4-8.2The [facility] HospitalComment on above:Performed By: #### PT, PTT #### [facility] [address] [place] [address] Dr. Gasper GarberSodium [Moles/Vol]139 mmol/YJjfxrq574-306Eya [facility] Comment on above:Performed By: #### PT, PTT #### [facility] [address] [address] [address] Gasper Aguayo nitrogen [Mass/Vol]41.0 mg/dLCritically high7.0-18.0The [facility] HospitalComment on above:Performed By: #### PT, PTT #### [facility] [address] [address] [address] Gasper Aguayo nitrogen/Creatinine [Mass ratio]18.6 mg/mgNormalThe [facility] HospitalComment on above:Performed By: #### PT, PTT #### [facility] [address] [place] [address] Dr. Gasper Su AUTO DIFFon [id number] #0.0 103/ulNormal0.0-0.1The [facility] HospitalComment on above:Performed By: #### PT, PTT #### [facility] [address] [place] [address] Dr. Gasper GarberBasophils/100 WBC (Bld)0.4 %Normal0.2-2.0[facility] Comment on above:Performed By: #### PT, PTT #### [facility] [address] [place] [address] Dr. Gasper Bennett #0.2 103/ulNormal0.0-0.7The [facility] HospitalComment on above: Performed By: #### PT, PTT #### [facility] [address] [place] [address] Dr. Gasper Rankinosinophils/100 WBC (Bld)1.6 %Normal0.9-7.0The [facility] Comment on above:Performed By: #### PT, PTT #### [facility] [address] [place] [address] Dr. Gasper Rankinrythrocyte distribution width (RBC) [Ratio]12.4 %Trwbei35.0-15.0 The [facility] HospitalComment on above:Performed By: #### PT, PTT #### [facility] [address] [place] [address] Dr. Gasper GarberHematocrit (Bld) [Volume fraction]34.7 %Critically low36.0-48.0 The [facility] HospitalComment on above:Performed By: #### PT, PTT #### [facility] [address] [place] [address] Dr. Gasper GarberHemoglobin (Bld) [Mass/Vol]11.4 g/dLCritically low12.0-16.0The [facility] HospitalComment on above:Performed By: #### PT, PTT #### [facility] [address] [place] [address] Dr. Gasper Moreira #0.02 10e3/ulNormal0.00-0.03The [facility] HospitalComment on above:Performed By: #### PT, PTT #### [facility] [address] [place] [address] Dr. Gasper Moreira %0.2 %Normal0.0-0.5The [facility] HospitalComment on above: Performed By: #### PT, PTT #### [facility] [address] [place] [address] Dr. Gasper Hagan #1.6 103/ulNormal1.2-3.8The [facility] HospitalComment on above:Performed By: #### PT, PTT #### [facility] [address] [place] [address] Dr. Gasper Westhocytes/100 WBC (Bld)17.7 %Critically low20.5-60.0The [facility] HospitalComment on above:Performed By: #### PT, PTT #### [facility] [address] [place] [address] Dr. Gasper MunguiaUAL DIFF REQNONormalThe [facility] HospitalComment on above: Performed By: #### PT, PTT #### [facility] [address] [place] [address] Dr. Gasper Nix (RBC) [Entitic mass]31.1 keQlvkqp96.7-34.0The [facility] HospitalComment on above:Performed By: #### PT, PTT #### [facility] [address] [place] [address] Dr. Gasper Zayas (RBC) [Mass/Vol]32.9 g/sPXwzvoq07.9-35.2The [facility] HospitalComment on above:Performed By: #### PT, PTT #### [facility] [address] [place] [address] Dr. Gasper ZayasV (RBC) [Entitic vol]94.8 mDDospsa31.0-99.0The [facility] HospitalComment on above:Performed By: #### PT, PTT #### [facility] [address] [place] [address] Dr. Gasper Suarez #1.0 103/ulCritically high0.3-0.8The [facility] Comment on above:Performed By: #### PT, PTT #### [facility] [address] [place] [address] Dr. Gasper Laraocytes/100 WBC (Bld)10.3 %Normal1.7-12.0The [facility] Comment on above:Performed By: #### PT, PTT #### [facility] [address] [place] [address] Dr. Gasper Brannon #6.4 103/ulNormal1.4-6.5The [facility] HospitalComment on above:Performed By: #### PT, PTT #### [facility] [address] [place] [address] Dr. Gasper Knowlesutrophils/100 WBC (Bld)69.8 %Kjwyxx37.0-75.0The [facility] HospitalComment on above:Performed By: #### PT, PTT #### [facility] [address] [place] [address] Dr. Gasper Andrelet mean volume (Bld) [Entitic vol]10.4 fLNormal9.5-13.5The [facility] HospitalComment on above:Performed By: #### PT, PTT #### [facility] [address] [place] [address] Dr. Gasper GarberPLT269 103/ejSfubzc454-093Owe [facility] HospitalComment on above: Performed By: #### PT, PTT #### [facility] [address] [place], [place] [address] Dr. Gasper GarberRBC3.66 106/ulCritically low4.20-5.40The [facility] HospitalComment on above:Performed By: #### PT, PTT #### [facility] [address] [place], [place] [address] Dr. Gasper GarberWBC9.2 103/ulNormal4.0-11.0The [facility] HospitalComment on above: Performed By: #### PT, PTT #### [facility] [address], [place] [address] Dr. Gasper GarberCT ABD/PELVIS WO CONon 21-39-2013WJ ABD/PELVIS WO CONCT ABDOMEN AND PELVIS WITHOUT [...] authenticated by: NASRIN CHIU Date: 2021-07-15 18:16NoOhioHealth Arthur G.H. Bing, MD, Cancer CenterCovid-19 PCR (CVDTBH)on 10-82-2700ZCFA-CoV-2 (COVID-19) RNA ANA LUISA+probe Ql (Unsp spec)Not detectedNormalNOT DETECTEDThe [facility] Comment on above:Result Comment: When [...] for this test is supported by the [place] of Health and Human Service's declaration that [...] longer be used).Performed By: #### LACT #### [facility] [address] [place] [address] Dr. Gasper Purvis URINE PROFILEon 31-97-0599Ustwtaupj Ql (U)NegativeNormal NEGATIVEUniversity Hospitals Parma Medical CenterComment on above:Performed By: #### ERUR UMICRO #### [facility] [address] [place] [address] Dr. Gasper GarberClarity (U)CLEARNormalCLEARUniversity Hospitals Parma Medical CenterComment on above: Performed By: #### ERUR, UMICRO #### [facility] [address] [place] [address] Dr. Gasper Webster (U)LT. YELLOWNormalYELLOWUniversity Hospitals Parma Medical CenterComment on above:Performed By: #### ERUR, UMICRO #### [facility] [address] [place] [address] Dr. Gasper Celis micrscopic examination will be performed if indicated. NormalThe [facility] HospitalComment on above:Performed By: #### ERUR, UMICRO #### [facility] [address] [place] [address] Dr. Gasper GarberGlucose Ql (U)NegativeNormalNEGATIVEUniversity Hospitals Parma Medical CenterComment on above:Performed By: #### ERUR, UMICRO #### [facility] [address] [place] [address] Dr. Gasper GarberHemoglobin Ql (U)NegativeNormalNEGATIVEThe [facility] on above:Performed By: #### TONI LESLIERO #### [facility] [address] [place] [address] [address] Gasper GarberKetones Ql (U)NegativeNormalNEGATIVEThe [facility] HospitalComment on above:Performed By: #### ANUJ UMDINORAHRO #### [facility] [address] [place] [address] Dr. Gasper GarberLEUKOCYTESNegativeNormalNEGATIVEThe [facility] HospitalComment on above:Performed By: #### TONI LESLIERO #### [facility] [address] [place] [address] Dr. Gasper GarberNitrite Ql (U)NegativeNormalNEGATIVEThe [facility] HospitalComment on above:Performed By: #### TONI LESLIERO #### [facility] [address] [place] [address] Dr. Gasper GarberpH (U)5.5 [pH]Normal5-9The [facility] HospitalComment on above: Performed By: #### TONI LESLIERO #### [facility] [address] [place] [address] Dr. Gasper GarberSPEC GRAVITY1.292Civbsi3.005-<=1.025The [facility] HospitalComment on above:Performed By: #### TONI LESLIERO #### [facility] [address] [place] [address] Dr. Gasper Dailey PROTEINTRACENormalNEGATIVE/ TRACEThe [facility] HospitalComment on above:Performed By: #### TONI LESLIERO #### [facility] [address] [place] [address] Dr. Gasper Hensley MICRO INDINDICATEDNoalThe [facility] HospitalComment on above: Performed By: #### BERNIE LESLIE #### [facility] [address] [place] [address] Dr. Gasper Sinder Qn (U)0.2 {Kaushik'U}/dLNormal0.2 - 1.0The [facility] HospitalComment on above:Performed By: #### ERURBERNIE #### [facility] [address] [place] [address] Dr. Gasper Lima T3on 24-27-7945WTGY T32.45 pg/mlLNormal2.18-3.98The [facility] HospitalComselect specialty hospital on above:Performed By: #### PT, PTT #### [facility] [address] [place] [address] Dr. Gasper Lima T4on 81-01-2139Ecyg T4 [Mass/Vol]1.19 ng/dLNormal0.76-1.46 The [facility] HospitalComment on above:Performed By: #### ACETON #### [facility] [address] [place] [address] Dr. Gasper GeeCTATE/LACTIC ACIDon 08-93-9402Glxrzwr [Moles/Vol]2.0 mmol/L Critically high0.4-1.9[facility] on above:Performed By: #### LACT #### [facility] [address] [place] [address] Dr. Gasper GarberLactate [Moles/Vol]4.0 mmol/LCritically high0.4-1.9The [facility] on above:Performed By: #### LACT #### [facility] [address] [place] [address] Dr. Gasper GarberLIPASEon 05-97-6768Qpjfwi [Catalytic activity/Vol]93.0 U/LNormal 73.0-393.0The [facility] HospitalComselect specialty hospital on above:Performed By: #### ACETON #### [facility] [address] [place] [address] Dr. Gasper GarberLAROSE OF CARE GLUCOSEon 57-89-0101Svhgglq [Mass/Vol]200 mg/dL Critically apyv89-414Ihd [facility] HospitalComment on above:Performed By: #### PT, PTT #### [facility] [address] [address] [address] Gasper GarberPROF 14(COMP METB)on 52-65-4630Pqezetz [Mass/Vol]3.5 g/dLNormal 3.4-5.0The [facility] HospitalComment on above:Performed By: #### ACETON #### [facility] [address] [place] [address] Dr. Gasper GarberAlbumin/Globulin [Mass ratio]1.0 {ratio}NormalThe [facility] HospitalComment on above:Performed By: #### ACETON #### [facility] [address] [place] [address] Dr. Gasper GómezP [Catalytic activity/Vol]81 U/PIuyoka55-522Kim [facility] HospitalComment on above:Performed By: #### ACETON #### [facility] [address] [place] [address] Dr. Gasper Alamo [Catalytic activity/Vol]43 U/CEcijzq22-93Jtl [facility] HospitalComment on above:Performed By: #### ACETON #### [facility] [address] [place] [address] Dr. Gasper Danielle gap [Moles/Vol]13.6 mmol/LNormalThe [facility] Comment on above:Performed By: #### ACETON #### [facility] [address] [place] [address] Dr. Gasper GarberAST [Catalytic activity/Vol]19 U/ODreaql14-01Xij [facility] HospitalComment on above:Performed By: #### ACETON #### [facility] [address] [place] [address] Dr. Gasper GarberBilirubin [Mass/Vol]0.6 mg/dLNormal0.2-1.0The [facility] Comment on above:Performed By: #### ACETON #### [facility] [address] [place] [address] Dr. Gasper GarberCalcium [Mass/Vol]8.9 mg/dLNormal8.5-10.1[facility] Comment on above:Performed By: #### ACETON #### [facility] [address] [address] [address] Gasper GarberChloride [Moles/Vol]103 mmol/MAsdkjq14-731Hsw [facility] Comment on above:Performed By: #### ACETON #### [facility] [address] [place] [address] [address] Gasper GarberCO2 [Moles/Vol]25.9 mmol/TQoqems35.0-32.0The [facility] Comment on above:Performed By: #### ACETON #### [facility] [address] [address] [address] Gasper GarberCreatinine [Mass/Vol]2.91 mg/dLCritically high0.55-1.02The [facility] HospitalComment on above:Performed By: #### ACETON #### [facility] [address] [address] [address] Jackman ChangEGFR-AF LQBFKAOR69 mL/min/1.83z9Apsacdpewf low>=60The [facility] HospitalComment on above:Performed By: #### ACETON #### [facility] [address] [address] [address] Gasper RankinGFR-NON AF EEYKTDNA78 mL/min/1.27l3Avgxjnlzbo low>=60The [facility] HospitalComment on above:Performed By: #### ACETON #### [facility] [address] [address] [address] Gasper GarberGlobulin (S) [Mass/Vol]3.5 g/dLNormalThe [facility] HospitalComment on above:Performed By: #### ACETON #### [facility] [address] [address] [address] Gasper GarberGlucose [Mass/Vol]201 mg/dLCritically drip74-116Cdc [facility] HospitalComment on above:Performed By: #### ACETON #### [facility] [address] [address] [address] Gasper GarberPotassium [Moles/Vol]3.5 mmol/LNormal3.5-5.1The [facility] Comment on above:Performed By: #### ACETON #### [facility] [address] [place] [address] Dr. Gasper GarberProtein [Mass/Vol]7.0 g/dLNormal6.4-8.2[facility] Comment on above:Performed By: #### ACETON #### [facility] [address] [place] [address] Dr. Gasper GarberSodium [Moles/Vol]139 mmol/DXctdtk525-431UllUniversity Hospitals Parma Medical Center Comment on above:Performed By: #### ACETON #### [facility] [address] [place] [address] Dr. Gasper Aguayo nitrogen [Mass/Vol]46.0 mg/dLCritically high7.0-18.0[facility] Medical CenterComment on above:Performed By: #### ACETON #### [facility] [address] [place] [address] Dr. Gasper Aguayo nitrogen/Creatinine [Mass ratio]15.8 mg/mgNoOhioHealth Arthur G.H. Bing, MD, Cancer CenterComment on above:Performed By: #### ACETON #### [facility] [address] [place] [address] Dr. Gasper Pulliam 25-87-9091UWI Coag (PPP) [Relative time]1.03 {INR} NormalUniversity Hospitals Parma Medical CenterComment on above:Performed By: #### PT, PTT #### [facility] [address] [place] [address] Dr. Gasper Martino GUIDELINESSEE BELOWSumma Health Barberton CampusComment on above:Result Comment: DESIRED INR: 2.0 - 3.0 CONDITIONS NOT LISTED BELOW 2.5 - 3.5 FOR PROSTHETIC HEART VALVE REPLACEMENT 2.5 - 3.5 RECURRENT THROMBOSIS Performed By: #### PT, PTT #### [facility] [address] [place] [address] Dr. Gasper GarberPT Coag (PPP) [Time]11.1 sNormal9.0-11.6ThFairfield Medical Center Comment on above:Performed By: #### PT, PTT #### [facility] [address] [place] [address] Dr. Gasper Marino 76-30-0977rWAL Coag (Bld) [Time]24.2 yZjuhal95.3-36.2The [facility] on above:Performed By: #### PT, PTT #### [facility] [address] [place] [address] Dr. Gasper Aguayo, HIGH SENSITIVITYon 84-99-8758YKCVTX70.9 pg/mLNormal 4.0-51.3The [facility] HospitalComment on above:Result Comment: CUT-OFF POINTS HAVE BEEN ESTABLISHED BASED ON THE FOURTH UNIVERSAL DEFINITIONS OF MYOCARDIAL INFARCTION. THE UPPER REFERENCE LIMIT (URL) OF TROPONIN, DEFINED THE 99TH PERCENTILE OF cTnI DISTRIBUTION IN A REFERENCE POPULATION, HAS BEEN CONFIRMED THE DECISION THRESHOLD FOR PR DIAGNOSIS.Performed By: #### LACT #### [facility] [address] [place] [address] Dr. Gasper Ackerman 62-56-1453WTB0.864 uIU/mLCritically high0.358-3.740[facility] Par[facility] Medical CenterComment on above:Performed By: #### ACETON #### [facility] [address] [place] [address] Dr. Gasper EDGAREE BELOWSumma Health Barberton CampusComment on above: Result Comment: <0.34 UIU/ml HYPERTHYROID 0.34-5.60 UIU/ml EUTHYROID >5.60 UIU/ml HYPOTHYROIDPerformed By: #### ACETON #### [facility] [address] [place] [address] Dr. Gasper MAURICIOon 80-91-7575ZIMOSILWELISKOIVAgtkndbcXXGG SEENThe [facility] HospitalComment on above:Performed By: #### BERNIE LESLIE #### [facility] [address] [place] [address] Dr. Gasper Crook identified Cx Nom (U)INDICATEDSumma Health Barberton CampusComment on above:Performed By: #### TONI LESLIERO #### [facility] [address] [address] [address] Gasper JallohSEENAbnormalNONE SEENUniversity Hospitals Parma Medical CenterComment on above: Performed By: #### ERUR, UMICRO #### [facility] [address] [address] [address] Gasper GarberCrystals LM Nom (Urine sed)NONE SEENNormalNONE SEENThe [facility] HospitalComment on above:Performed By: #### ERUR, UMICRO #### [facility] [address] [address] [address] Jackman ChangEpithelial cells LM Ql (Urine sed)RARENormalNONE SEEN /RAREThe [facility] HospitalComment on above:Performed By: #### ERUR, UMICRO #### [facility] [address] [place] [address] [address] Gasper IbarraCOUSIZZY SEENNormalNONE SEENThe [facility] HospitalComment on above:Performed By: #### ERUR, UMICRO #### [facility] [address] [address] [address] Gasper LuqueONE SEENAbnormal0-2The [facility] HospitalComment on above: Performed By: #### ERUEva, UMICRO #### [facility] [address] [address] [address] Gasper GarberWBC2-5AbnormalNONE SEENThe [facility] HospitalComment on above: Performed By: #### ERUR, UMICRO #### [facility] [address] [address] [address] Gasper GarberXR chest 1V portableon 96-51-0726ON chest 1V [facility] [place] [address] [place] [address] XRay Report Signed Patient: Rivka Turner MR#: [id number] : 1945 Acct:[id number] Age/Sex: 75 / F ADM Date: 06/24/21 Loc: Room: [address] [place] [address] Type: DIS IN Attending Dr: Rusty Amor [...] M.D.07/01/2021 9:08 AM Dictation Location: [place] [address] Transcribed By: [facility] 07/01/21 0908 Dictated By: Adarsh Valle Jr, MD 07/01/21 0907 Signed By: 07/01/21 0908[facility] Samaritan HospitalActivated partial thromboplastin time (aPTT) in platelet poor plasma by coagulation aOrdered By: Marlon Leon on 10-21-5658xLND Coag (PPP) [Time]24.8 s25.1-36.5FMiami Valley HospitalBasophils Auto (Bld) [#/Vol]Ordered By: Marlon Leon on 06-25-2021 Basophils (Bld) [#/Vol]0.0 10*3/uL0.0-0.2FMiami Valley Hospital Basophils/100 WBC Auto (Bld)Ordered By: Marlon Leon on 82-21-1627Ozflazfal/100 WBC (Bld)0.3 %The [facility] SystemBlood hemoglobin measurement (mass/volume)Ordered By: Marlon Leon on 48-96-1713Rzafrxmmzs (Bld) [Mass/Vol] 11.1 g/dL11.8-15.4FMiami Valley HospitalBlood leukocytes automated count (number/volume)Ordered By: Marlon Leon on 49-77-1870MOC (Bld) [#/Vol]10.5 10*3/uL4.5-11.0The [facility] SystemComplete Blood Count Auto Diffon 14-82-6953Ejlgqwpca (Bld) [#/Vol]0.0 10*3/uLNormal0.0-0.2FMiami Valley HospitalComment on above:Result Comment: PERFORMED BY: [facility] [address] [place] [address] PATHOLOGIST [employer]ESS OPERATOR NARGIS CLEMENS M.D.Performed By: #### GLULS #### Point of Care testing ,Basophils/100 WBC (Bld)0.3 %Normal.The [facility] SystemComment on above:Performed By: #### GLULS #### Point of Care testing ,Eosinophils (Bld) [#/Vol]0.0 10*3/uLNormal0.0-0.45The [facility] SystemComment on above:Performed By: #### GLULS #### Point of Care testing ,Eosinophils/100 WBC (Bld)0.0 %Normal.The [facility] SystemComment on above:Performed By: #### GLULS #### Point of Care testing ,Erythrocyte distribution width (RBC) [Ratio]12.7 %Lzllwa35.9-15.3FMiami Valley HospitalComment on above:Performed By: #### GLULS #### Point of Care testing ,Hematocrit (Bld) [Volume fraction]32.7 %Low34.0-46.4FMiami Valley HospitalComment on above:Performed By: #### GLULS #### Point of Care testing ,Hemoglobin (Bld) [Mass/Vol]11.1 g/dLLow11.8-15.4FMiami Valley HospitalComment on above:Performed By: #### GLULS #### Point of Care testing ,Lymphocytes (Bld) [#/Vol]0.4 10*3/uLLow1.00-4.8The [facility] SystemComment on above:Performed By: #### GLULS #### Point of Care testing ,Lymphocytes/100 WBC (Bld)4.3 %Normal.The [facility] SystemComment on above:Performed By: #### GLULS #### Point of Care testing ,MCH (RBC) [Entitic mass]31.3 ngKdkauz50.7-34.3FMiami Valley Hospital Comment on above:Performed By: #### GLULS #### Point of Care testing ,MCV (RBC) [Entitic vol]92.1 sPAeoxbi02-798MwocoggcaThe [facility] System Comment on above:Performed By: #### GLULS #### Point of Care testing ,Mean Corpuscular HGB Conc34.0 g/xPJlvxbq93.0-35.0The [facility] SystemComment on above:Performed By: #### GLULS #### Point of Care testing ,Monocytes (Bld) [#/Vol]0.5 10*3/uLNormal0.0-0.8The [facility] SystemComment on above:Performed By: #### GLULS #### Point of Care testing ,Monocytes/100 WBC (Bld)4.5 %Normal.The [facility] SystemComment on above:Performed By: #### GLULS #### Point of Care testing ,Neutrophils (Bld) [#/Vol]9.6 10*3/uLHigh1.8-7.7FMiami Valley HospitalComment on above:Performed By: #### GLULS #### Point of Care testing ,Neutrophils/100 WBC (Bld)90.9 %Normal.The [facility] SystemComment on above:Performed By: #### GLULS #### Point of Care testing ,Nucleated RBC/100 WBC (Bld) [Ratio]0.0 %Normal0-0.5FMiami Valley HospitalComment on above:Performed By: #### GLULS #### Point of Care testing ,Platelet mean volume (Bld) [Entitic vol]9.0 fLNormal6.3-10.7FMiami Valley HospitalComment on above:Performed By: #### GLULS #### Point of Care testing ,Platelets (Bld) [#/Vol]205 10*3/zLZdrujr375-553NmmxdpqyeThe Metrohealth SystemComment on above:Performed By: #### GLULS #### Point of Care testing ,RBC (Bld) [#/Vol]3.55 10*6/uLLow3.60-5.00[facility] Comment on above:Performed By: #### GLULS #### Point of Care testing ,WBC (Bld) [#/Vol]10.5 10*3/uLNormal4.5-11.0[facility] Comment on above:Performed By: #### GLULS #### Point of Care testing ,ECG 12 lead ECGon 88-89-1376ZCT 12 lead ECGSELECT MEDICAL [facility] [place] [address] Electrocardiograph Report Signed Patient: Rivka Turner MR#: [id number] : 1945 Acct:[id number] Age/Sex: 75 / F ADM Date: 06/24/21 Loc: Room: [address] [place] [address] Type: DIS IN Attending Dr: Rusty Amor [...] are now present Confirmed by SANG BARRIOS [facility], [facility] ([id number]) on 06/25/2021 11:01:31 AM Referred By: Electronically Signed By:WIL DOMÍNGUEZ MD [facility] Transcribed By: MUS Signed By Wil Domínguez MD, FACC 06/25/[address] [place], [place] [address]Eosinophils Auto (Bld) [#/Vol]Ordered By: Marlon Leon on 51-44-0188Tbtepojrhvd (Bld) [#/Vol]0.0 10*3/uL 0.0-0.45The [facility] SystemEosinophils/100 WBC Auto (Bld)Ordered By: Marlon Leon on 16-92-0145Ujnifxpawla/100 WBC (Bld)0.0 %The [facility]health SystemErythrocyte distribution width Auto (RBC) [Ratio]Ordered By: Marlon Leon on 77-62-9230Deqynmpqtsw distribution width (RBC) [Ratio]12.7 %11.9-15.3 The Metrohealth SystemGlucose Glucometer (BldC) [Mass/Vol]Ordered By: Rusty Amor on 56-42-7967Iytuqck [Mass/Vol]227 mg/dLThe Metrohealth SystemComment on above:Random Glucose Reference Range is dependent on time and content of last meal. Glucose of more than 200 mg/dL in a nonstressed, ambulatory subject supports the diagnosis of Diabetes Mellitus.Glucose Poct Glucometerson 55-67-1058Gskioem [Mass/Vol]227 mg/dLNoMercy Health Springfield Regional Medical CenterComment on above:Result Comment: Random Glucose Reference Range is dependent on time and content of last meal. Glucose of more than 200 mg/dL in a nonstressed, ambulatory subject supports the diagnosis of Diabetes Mellitus. PERFORMED BY: [place] [address] PATHOLOGIST [employer] PRESS OPERATOR NARGIS CLEMENS M.D.Performed By: #### PTT #### [facility] [address] [place] [address] USAGlucose [Mass/Vol]184 mg/dLNoMercy Health Springfield Regional Medical CenterComment on above:Result Comment: Random Glucose Reference Range is dependent on time and content of last meal. Glucose of more than 200 mg/dL in a nonstressed, ambulatory subject supports the diagnosis of Diabetes Mellitus. PERFORMED BY: [place] [address] PATHOLOGIST [employer] PRESS OPERATOR NARGIS CLEMENS M.D.Performed By: #### PTT #### [facility] [address] [place] [address] USAGlucose [Mass/Vol]294 mg/dLNormalThe Metrohealth SystemComment on above:Result Comment: Random Glucose Reference Range is dependent on time and content of last meal. Glucose of more than 200 mg/dL in a nonstressed, ambulatory subject supports the diagnosis of Diabetes Mellitus. PERFORMED BY: [facility] [address] [place] [address] PATHOLOGIST CALEND[employer] PRESS OPERATOR NARGIS CLEMENS M.D.Performed By: #### GLULS #### Point of Care testing ,Hematocrit Auto (Bld) [Volume fraction]Ordered By: Marlon Leon on 06-25-2021 Hematocrit (Bld) [Volume fraction]32.7 %34.0-46.4FMiami Valley HospitalLaboratory - CoagulationOrdered By: Marlon Leon on 80-06-8939PY Coag (PPP) [Time]11.5 s9.0-12.9The [facility] SystemLaboratory - Hematology and Cell countsOrdered By: Marlon Leon on 70-90-6505Ctsjmwlyh RBC/100 WBC (Bld) [Ratio]0.0 %0-0.5FMiami Valley HospitalLymphocytes Auto (Bld) [#/Vol] Ordered By: Marlon Leon on 39-74-7640Cbrpfzdyaah (Bld) [#/Vol]0.4 10*3/uL 1.00-4.8The [facility] SystemLymphocytes/100 WBC Auto (Bld)Ordered By: Marlon Leon on 36-84-3465Fqripuhqrfd/100 WBC (Bld)4.3 %[facility] HospitalH Auto (RBC) [Entitic mass]Ordered By: Marlon Leon on 06-25-2021 MCH (RBC) [Entitic mass]31.3 pg24.7-34.3FMiami Valley HospitalMCHC Auto (RBC) [Mass/Vol]Ordered By: Marlon Leon on 52-80-3842AOZI (RBC) [Mass/Vol] 34.0 g/dL32.0-35.0The [facility] SystemMCV Auto (RBC) [Entitic vol] Ordered By: Marlon Leon on 27-96-7455ASW (RBC) [Entitic vol]92.1 eB02-604 The [facility] SystemMonocytes Auto (Bld) [#/Vol]Ordered By: Marlon Leon on 82-21-5394Cyjpxsxlh (Bld) [#/Vol]0.5 10*3/uL0.0-0.8FirTrinity Health System East CampusMonocytes/100 WBC Auto (Bld)Ordered By: Marlon Leon on 06-25-2021 Monocytes/100 WBC (Bld)4.5 %The [facility] SystemNeutrophils Auto (Bld) [#/Vol]Ordered By: Marlon Leon on 26-81-2981Uofismfxikz (Bld) [#/Vol]9.6 10*3/uL1.8-7.7FMiami Valley HospitalNeutrophils/100 WBC Auto (Bld) Ordered By: Marlon Leon on 86-50-4004Ekdhutuomyv/100 WBC (Bld)90.9 %The [facility] SystemPartial Thromboplastin Timeon 85-59-2475gBRR Coag (Bld) [Time]24.8 sLow25.1-36.5FMiami Valley HospitalComment on above:Result Comment: PERFORMED BY: [facility] [address] [place] [address] PATHOLOGIST [employer]ENDER [employer]LL PRESS OPERATOR NARGIS CLEMENS M.D.Performed By: #### GLULS #### Point of Care testing ,Platelet mean volume Auto (Bld) [Entitic vol]Ordered By: Marlon Leon on 31-26-0328Kntrhihb mean volume (Bld) [Entitic vol]9.0 fL6.3-10.7FMiami Valley HospitalPlatelet poor plasma international normalized ratio (INR) by coagulation assay (relatOrdered By: Marlon Leon on 14-17-5509XQA Coag (PPP) [Relative time]1.0 {INR}The Metro[facility] SystemComment on above:INR Therapeutic Range A) Pre- and [...] Auto (Bld) [#/Vol]Ordered By: Marlon Leon on 04-74-8333Tumgqlffh (Bld) [#/Vol]205 10*3/uL 150-450The [facility] SystemProgress Noteson 11-97-1439Jvcjecpfysaxq Authentication Interface Message TextEMERGENCY TRIAGE, TREAT AND TRANSPORT (ET3) DOCUMENTATION OF TELEHEALTH VISIT Date / Time: 06/23/20211929 Name: Rivka Turner : 1945 SSN: (Not on file) EMS Agency: [facility] [x] Verbal consent obtained [] Implied [...] Reported: Same ET3 Encounter Completed by: Susu DiazCleveland Clinic [facility] Prothrombin Time INRon 36-49-1404AMN Coag (PPP) [Relative time]1.0 {INR}Normal The [facility] SystemComment on above:Result Comment: INR Therapeutic Range A) [...] of Care testing ,PT Coag (PPP) [Time]11.5 sNormal9.0-12.9[facility] Comment on above:Performed By: #### GLULS #### Point of Care testing ,RBC Auto (Bld) [#/Vol]Ordered By: Marlon Leon on 48-32-2027AFU (Bld) [#/Vol] 3.55 10*6/uL3.60-5.00The [facility] SystemTroponin I High Sensitivityon 21-35-9148Idngreea I High Eckbdagtwaa179 pg/mLOff scale high015 The [facility] SystemComment on above:Result Comment: Critical value result called at 0638 on 06/25/21 PERFORMED BY: [place] [address] PATHOLOGIST CALENDER ROLL PRESS OPERATOR NARGIS CLEMENS M.D.Performed By: #### PTT #### [place] [address] USATroponin I.cardiac [Mass/volume] in Serum or Plasma by High sensitivity methodOrdered By: Gen Bolivar on 91-94-9278Zoeczaml I.cardiac High sensitivity method [Mass/Vol]735 pg/mL0-15[facility] Comment on above:Critical value result called at 0638 on 06/25/21A1C with Estimated Average Gluon 03-01-5573Yibnplr [Mass/Vol] 160 mg/dLNormalThe Metrohealth SystemComment on above:Result Comment: PERFORMED BY: [facility] [place] [address] PATHOLOGIST CALENDER ROLL PRESS OPERATOR NARGIS CLEMENS M.D.Performed By: #### GLULS #### Point of Care testing ,HbA1c (Bld) [Mass fraction]7.2 %High4.3-5.6FMiami Valley Hospital Comment on above:Result Comment: Increased risk for diabetes: 5.7 - 6.4 diabetes: >6.4 glycemic control for adults with diabetes: <7.0Performed By: #### GLULS #### Point of Care testing ,Albumin [Mass/volume] in Serum or PlasmaOrdered By: Marlon Leon on 06-24-2021 Albumin [Mass/Vol]3.1 g/dL3.2-5.5FMiami Valley HospitalCholesterol [Mass/volume] in Serum or PlasmaOrdered By: Marlon Leon on 24-63-6163Wnmwsctjwvx [Mass/Vol]128 mg/cE672-982AnhxennzgThe Metrohealth SystemComment on above: Chol less than 200 mg/dl low risk Chol 201-239 mg/dl borderline risk Chol 240 mg/dl and greater high riskCholesterol in LDL Calc [Mass/Vol]Ordered By: Marlon Leon on 61-30-8299Xiignjochmm in LDL [Mass/Vol]56 mg/dL0-100The Metro[facility] SystemComment on above:LDL ATP III CLASSIFICATION LDL less than 100 mg/dL Optimal LDL 100-129 mg/dL Near or above optimal LDL 130-159 mg/dL Borderline high LDL 160-189 mg/dL High LDL greater than 189 mg/dL Very highCholesterol in VLDL Calc [Mass/Vol]Ordered By: Marlon Leon on 98-49-4602Lpudtoherak in VLDL [Mass/Vol]13 mg/dLThe Metrohealth SystemComplete Blood Count Auto Diffon 46-04-2417Xisrdxinr (Bld) [#/Vol]0.1 10*3/uLNormal0.0-0.2FMiami Valley HospitalComment on above:Result Comment: PERFORMED BY: [place] [address] PATHOLOGIST CALENDER ROLL PRESS OPERATOR NARGIS CLEMENS M.D.Performed By: #### PTT #### [place] [address] USABasophils/100 WBC (Bld)0.8 %Normal.The Metro[facility] SystemComment on above:Performed By: #### PTT #### [place] [address] USAEosinophils (Bld) [#/Vol]0.2 10*3/uLNormal0.0-0.45 The [facility] SystemComment on above:Performed By: #### PTT #### [place] [address] USAEosinophils/100 WBC (Bld)3.2 %Normal.The Metro[facility] SystemComment on above:Performed By: #### PTT #### [place] [address] USAErythrocyte distribution width (RBC) [Ratio]12.7 %Normal 11.9-15.3FMiami Valley HospitalComment on above:Performed By: #### PTT #### [place] [address] USAHematocrit (Bld) [Volume fraction]30.5 %Low34.0-46.4 The [facility] SystemComment on above:Performed By: #### PTT #### [place] [address] USAHemoglobin (Bld) [Mass/Vol]10.4 g/dLLow11.8-15.4FMiami Valley HospitalComment on above:Performed By: #### PTT #### [place] [address] USALymphocytes (Bld) [#/Vol]1.8 10*3/uLNormal1.00-4.8 The [facility] SystemComment on above:Performed By: #### PTT #### [facility] [address] [place] [address] USALymphocytes/100 WBC (Bld)27.4 %Normal.The Metro[facility] SystemComment on above:Performed By: #### PTT #### [facility] [address]H (RBC) [Entitic mass]31.3 jkKtaysr98.7-34.3FMiami Valley HospitalComment on above:Performed By: #### PTT #### [facility] [address]V (RBC) [Entitic vol]92.0 eQXhqjft09-816JscozxsocThe Metrohealth SystemComment on above:Performed By: #### PTT #### [facility] [address] [place] [address] USAMean Corpuscular HGB Conc34.1 g/qEWbjwtj79.0-35.0The Metrohealth SystemComment on above:Performed By: #### PTT #### [facility] [address] [place] [address] USAMonocytes (Bld) [#/Vol]0.6 10*3/uLNormal0.0-0.8The Metro[facility] SystemComment on above:Performed By: #### PTT #### [facility] [address] [place] [address] USAMonocytes/100 WBC (Bld)8.9 %Normal.The Metro[facility] SystemComment on above:Performed By: #### PTT #### [facility] [address] [place] [address] USANeutrophils (Bld) [#/Vol]3.8 10*3/uLNormal1.8-7.7FMiami Valley HospitalComment on above:Performed By: #### PTT #### [facility] [address] [place] [id number] USANeutrophils/100 WBC (Bld)59.7 %Normal.The Metro[facility] SystemComment on above:Performed By: #### PTT #### [place] [address] USANucleated RBC/100 WBC (Bld) [Ratio]0.0 %Normal0-0.5 The Metrohealth SystemComment on above:Performed By: #### PTT #### [place] [address] USAPlatelet mean volume (Bld) [Entitic vol]8.4 fLNormal 6.3-10.7FMiami Valley HospitalComment on above:Performed By: #### PTT #### [place] [address] USAPlatelets (Bld) [#/Vol]191 10*3/jHJqvste485-584SjmhhidamThe Metrohealth SystemComment on above:Performed By: #### PTT #### [place] [address] USARBC (Bld) [#/Vol]3.31 10*6/uLLow3.60-5.00The Metro[facility] SystemComment on above:Performed By: #### PTT #### [place] [address] USAWBC (Bld) [#/Vol]6.4 10*3/uLNormal4.5-11.0The Metro[facility] SystemComment on above:Performed By: #### PTT #### [place] [address] USAComprehensive Metabolic Panelon 61-36-3126Yeqihpq [Mass/Vol]3.1 g/dLLow3.2-5.5FMiami Valley HospitalComment on above: Performed By: #### HS TROP, PT, PTT, CMP, PHOS, MG, LIPID #### [place] [address] USAAlbumin/Globulin [Mass ratio]1.2 {ratio}NormalThe Metrohealth SystemComment on above:Performed By: #### HS TROP, PT, PTT, CMP, PHOS, MG, LIPID #### [facility] [address] [place] [address] USAALP [Catalytic activity/Vol]57 U/IWkhvio05-49RmomvhomaThe Metrohealth SystemComment on above:Performed By: #### HS TROP, PT, PTT, CMP, PHOS, MG, LIPID #### [facility] [address] [place] [address] USAALT [Catalytic activity/Vol]25 U/TAtxyxh11-99LxqmkbeqfThe Metrohealth SystemComment on above:Performed By: #### HS TROP, PT, PTT, CMP, PHOS, MG, LIPID #### [facility] [address] [place] [address] USAAST [Catalytic activity/Vol]20 U/KSuqffo84-03DoopqcrjnThe Metrohealth SystemComment on above:Performed By: #### HS TROP, PT, PTT, CMP, PHOS, MG, LIPID #### [facility] [address] [place] [address] USABilirubin [Mass/Vol]0.5 mg/dLNormal0.3-1.2FMiami Valley HospitalComment on above:Performed By: #### HS TROP, PT, PTT, CMP, PHOS, MG, LIPID #### [facility] [address] [place] [address] USACalcium [Mass/Vol]9.1 mg/dLNormal8.2-10.2FMiami Valley HospitalComment on above:Performed By: #### HS TROP, PT, PTT, CMP, PHOS, MG, LIPID #### [facility] [address] [place] [address] USAChloride [Moles/Vol]108 mmol/CHahiee14-275FhfycfkiiThe Metrohealth SystemComment on above:Performed By: #### HS TROP, PT, PTT, CMP, PHOS, MG, LIPID #### [facility] [address] [place] [address] USACO2 [Moles/Vol]25.1 mmol/DFbwfac42.0-30.0The Metro[facility] SystemComment on above:Performed By: #### HS TROP, PT, PTT, CMP, PHOS, MG, LIPID #### [facility] [address] [place] [address] USACreatinine [Mass/Vol]1.64 mg/dLHigh0.44-1.03The Metro[facility] SystemComment on above:Performed By: #### HS TROP, PT, PTT, CMP, PHOS, MG, LIPID #### [facility] [address] [place] [address] USACreatinine Clr Calc Agtqqwck56.62NoMercy Health Springfield Regional Medical CenterComment on above:Performed By: #### HS TROP, PT, PTT, CMP, PHOS, MG, LIPID #### [facility] [address] [place] [address] USAEstimated GFR ( Bucuhtd46OxhpzyXygjpxwgjTriHealth Good Samaritan HospitalComment on above:Result Comment: GFR estimated reference range: According to KDOQI guidelines, <60 ml/min/1.73m2 is sufficient to diagnose a patient with chronic kidney disease.Performed By: #### HS TROP, PT, PTT, CMP, PHOS, MG, LIPID #### [facility] [address] [place] [address] USAEstimated GFR (Non- Dx21KvcucoScetrwkocTriHealth Good Samaritan HospitalComment on above:Performed By: #### HS TROP, PT, PTT, CMP, PHOS, MG, LIPID #### [facility] [address] [place] [address] USAGlobulin (S) [Mass/Vol]2.6 g/dLNoMercy Health Springfield Regional Medical CenterComment on above:Performed By: #### HS TROP, PT, PTT, CMP, PHOS, MG, LIPID #### [facility] [address] [place] [address] USAGlucose [Mass/Vol]65 mg/eTBgx84-509PfatmyworThe Metrohealth SystemComment on above:Result Comment: Random Glucose Reference Range is dependent on time and content of last meal. Glucose of more than 200 mg/dL in a nonstressed, ambulatory subject supports the diagnosis of Diabetes Mellitus. ADA recommended reference rangePerformed By: #### HS TROP, PT, PTT, CMP, PHOS, MG, LIPID #### [facility] [address] [place] [address] USAPotassium [Moles/Vol]4.1 mmol/LNormal3.5-5.1FMiami Valley HospitalComment on above:Performed By: #### HS TROP, PT, PTT, CMP, PHOS, MG, LIPID #### [facility] [address] [place] [address] USAProtein [Mass/Vol]5.7 g/dLLow6.1-7.9The Metro[facility] SystemComment on above:Performed By: #### HS TROP, PT, PTT, CMP, PHOS, MG, LIPID #### [facility] [address] [place] [address] USASodium [Moles/Vol]140 mmol/RFavhmr243-586PzxsndkryThe Metrohealth SystemComment on above:Performed By: #### HS TROP, PT, PTT, CMP, PHOS, MG, LIPID #### [facility] [address] [place] [address] USAUrea nitrogen [Mass/Vol]27 mg/dLHigh9-23The Metrohealth SystemComment on above:Performed By: #### HS TROP, PT, PTT, CMP, PHOS, MG, LIPID #### [facility] [address] [place] [address] USACreatinine and Glomerular filtration rate.predicted panel (S/P/Bld)Ordered By: Marlon Leon on 02-43-8892Isecyejqje [Mass/Vol]1.64 mg/dL 0.44-1.03The Metrohealth SystemECG 12 lead ECGon 71-29-5552TCF 12 lead ECGSELECT MEDICAL [facility] [address] [place] [address] [place] [address] Electrocardiograph Report Signed Patient: Rivka Turner MR#: [id number] : 1945 Acct:[id number] Age/Sex: 75 / F ADM Date: 06/24/21 Loc: Room: [address] [place] [address] Type: DIS IN Attending Dr: Rusty Amor [...] Referred By: Electronically Signed By:WIL DOMÍNGUEZ MD [facility] Transcribed By: MUS Signed By Wil Domínguez MD, FACC 06/25/21 1101TriHealth Good Samaritan HospitalEC 12 lead [facility] [place] [address] Electrocardiograph Report Signed Patient: Rivka Turner MR#: [id number] : 1945 Acct:[id number] Age/Sex: 75 / F ADM Date: 06/24/21 Loc: Room: [address] [place] [address] Type: DIS IN Attending Dr: Rusty Amor [...] By: MUS Signed By Wil Domínguez MD, [facility] 06/24/21 1001NoMercy Health Springfield Regional Medical CenterECH echo transthoracicon 88-91-3520IZI echo transthoracicSELECT MEDICAL [facility] [place] [address] Echocardiogram Signed Patient: Rivka Turner MR#: [id number] : 1945 Acct:[id number] Age/Sex: 75 / F ADM Date: 06/24/21 Loc: Room: [address] [place] [address] Type: DIS IN Attending Dr: Rusty Amor MD Ordering Provider: Marlon Leon DO, RES Date of Service: 06/24/2108/10/602 ECH/ECH echo transthoracic: NSTEMI Copies to: Marlon Leon DO, JOSE DE JESUS Domínguez MD, [facility] A : 1945 Gender: Female (MM/DD/YYYY) [...] Frazier. : : MD SANG, : : [facility]ED [facility] : : : : on: 06/24/2021, 11:11 : : AM : : : Transcribed By: SCAnita Performed At: 06/24/21 0944 Signed By: Wil Domínguez MD, [facility] 06/24/21 1111Tri[facility] Good Samaritan HospitalEstimated glomerular filtration rate (GFR) non- Ordered By: Marlon Leon on 62-00-6626AJM/1.73 sq M.predicted among non-blacks MDRD (S/P/Bld) [Vol rate/Area]31 mL/MinThe Metrohealth SystemGlobulin Calc (S) [Mass/Vol]Ordered By: Marlon Leon on 01-22-9658Bjjmhfio (S) [Mass/Vol] 2.6 g/dLThe Metrohealth SystemGlucose Poct Glucometerson 06-24-2021 Glucose [Mass/Vol]322 mg/dLTriHealth Good Samaritan HospitalComment on above:Result Comment: Random Glucose Reference Range is dependent on time and content of last meal. Glucose of more than 200 mg/dL in a nonstressed, ambulatory subject supports the diagnosis of Diabetes Mellitus. PERFORMED BY: [place] [address] PATHOLOGIST CALENDER ROLL PRESS OPERATOR NARGIS CLEMENS M.D.Performed By: #### GLULS #### Point of Care testing ,Lzsasli7Ijn8: Cleaned MeterTriHealth Good Samaritan HospitalComment on above:Result Comment: PERFORMED BY: [address] [place] [id number] PATHOLOGIST CALENDER ROLL PRESS OPERATOR NARGIS CLEMENS M.D.Performed By: #### GLULS #### Point of Care testing ,Glucose [Mass/Vol]87 mg/dLNoMercy Health Springfield Regional Medical CenterComment on above:Result Comment: Random Glucose Reference Range is dependent on time and content of last meal. Glucose of more than 200 mg/dL in a nonstressed, ambulatory subject supports the diagnosis of Diabetes Mellitus.Performed By: #### GLULS #### Point of Care testing ,Glucose [Mass/Vol]139 mg/dLNoMercy Health Springfield Regional Medical CenterComment on above:Result Comment: Random Glucose Reference Range is dependent on time and content of last meal. Glucose of more than 200 mg/dL in a nonstressed, ambulatory subject supports the diagnosis of Diabetes Mellitus. PERFORMED BY: [place] [address] PATHOLOGIST CALENDER ROLL PRESS OPERATOR NARGIS CLEMENS M.D.Performed By: #### PTT #### [address] [address] USAGlucose mean value [Mass/volume] in Blood Estimated from glycated hemoglobinOrdered By: Marlon Leon on 26-01-5406Iyhdubl glucose Estimated from glycated hemoglobin (Bld) [Mass/Vol]160 mg/dLThe Metrohealth SystemHemoglobin A1c percentageOrdered By: Marlon Leon on 06-24-2021 HbA1c (Bld) [Mass fraction]7.2 %4.3-5.6FMiami Valley HospitalComment on above:Increased risk for diabetes: 5.7 - 6.4 diabetes: >6.4 glycemic control for adults with diabetes: <7.0Laboratory - Chemistry and Chemistry - challengeOrdered By: Marlon Leon on 61-43-1410Gwuswkgqs [Mass/Vol] 2.4 mg/dL1.6-2.6FMiami Valley HospitalLipid Panelon 06-24-2021 Cholesterol [Mass/Vol]128 mg/jRAuf015-806HroudfyezThe Metrohealth System Comment on above:Result Comment: Chol less than 200 mg/dl low risk Chol 201-239 mg/dl borderline risk Chol 240 mg/dl and greater high riskPerformed By: #### HS TROP, PT, PTT, CMP, PHOS, MG, LIPID #### [facility] [address] [place] [address] USACholesterol in HDL [Mass/Vol]58 mg/vUXvkgkw30-02XwxuvhesrThe Metrohealth SystemComment on above:Result Comment: HDL CHOL ATP-III CLASSIFICATION Cardiovascular Risk HDL > or equal to 60 mg/dL LOW HDL < 40 mg/dL HIGHPerformed By: #### HS TROP, PT, PTT, CMP, PHOS, MG, LIPID #### [facility] [address] [place] [address] USACholesterol.total/Cholesterol in HDL [Mass ratio]2.2 {ratio}Normal<5.0The Metrohealth SystemComment on above:Result Comment: PERFORMED BY: [facility] [address] [place] [address] PATHOLOGIST CALENDER ROLL PRESS OPERATOR NARGIS CLEMENS M.D.Performed By: #### HS TROP, PT, PTT, CMP, PHOS, MG, LIPID #### [facility] [address] [place] [address] USALDL Cholesterol,Efvnqldwbj60 mg/dLNormal0-100The Metro[facility] SystemComment on above:Result Comment: LDL ATP III CLASSIFICATION LDL less than 100 mg/dL Optimal LDL 100-129 mg/dL Near or above optimal LDL 130-159 mg/dL Borderline high LDL 160-189 mg/dL High LDL greater than 189 mg/dL Very highPerformed By: #### HS TROP, PT, PTT, CMP, PHOS, MG, LIPID #### [facility] [address] [place] [address] USATriglyceride w/Awtrrx99 mg/pOMqfgqv89-362YxdjvgcadThe Metrohealth SystemComment on above:Result Comment: TRIG ATP III CLASSIFICATION TRIG less than 150 mg/dL Normal TRIG 150-199 mg/dL Borderline high TRIG 200-500 mg/dL High TRIG greater than 500 mg/dL Very high Standard traceable to the Center for Disease Conrtrol and Prevention (CDC) test method.Performed By: #### HS TROP, PT, PTT, CMP, PHOS, MG, LIPID #### [facility] [address] [place] [address] USAVLDL EPCLYKNJMWO43 mg/dLNormKettering Health Greene MemorialComment on above:Performed By: #### HS TROP, PT, PTT, CMP, PHOS, MG, LIPID #### [place] [address] USAMagnesiumon 31-59-1516Sdhhrwybh [Mass/Vol]2.4 mg/dLNormal 1.6-2.6FMiami Valley HospitalComment on above:Performed By: #### HS TROP, PT, PTT, CMP, PHOS, MG, LIPID #### [place] [address] USANo Panel InformationOrdered By: Rusty Amor on 53-95-7390Boablea Glucose CommentGlu2: cleaned meterThe Metrohealth SystemNo Panel InformationOrdered By: Marlon Leon on 21-95-7529Aukybyjiu GFR ()37 mL/MinThe Metrohealth SystemComment on above:GFR estimated reference range: According to KDOQI guidelines, <60 ml/min/1.73m2 is sufficient todiagnose a patient with chronic kidney disease.Pharmacy Creatinine Clearance (Chem33.62The Metrohealth SystemPartial Thromboplastin Time on 60-72-2739iWUJ Coag (Bld) [Time]43.4 sHigh25.1-36.5FMiami Valley HospitalComment on above:Order Comment: draw both at 11:35 with per Shahnaz martin Result Comment: PERFORMED BY: [place] [address] PATHOLOGIST CALENDER ROLL PRESS OPERATOR NARGIS CLEMENS M.D.Performed By: #### PTT #### [place] [address] USAaPTT Coag (Bld) [Time]35.4 yWttuxt53.1-36.5FMiami Valley HospitalComment on above:Result Comment: PERFORMED BY: [place] [address] PATHOLOGIST CALENDER ROLL PRESS OPERATOR NARGIS CLEMENS M.D.Performed By: #### HS TROP, PT, PTT, CMP, PHOS, MG, LIPID #### [place] [address] USAPhosphate [Mass/volume] in Serum or PlasmaOrdered By: Marlon Leon on 47-92-0507Btxxgzbqr [Mass/Vol]3.5 mg/dL2.5-4.6FMiami Valley HospitalPhosphoruson 63-39-5982Etowcleox [Mass/Vol]3.5 mg/dLNormal2.5-4.6 The [facility] SystemComment on above:Performed By: #### HS TROP, PT, PTT, CMP, PHOS, MG, LIPID #### [facility] [address] [place] [id number] USAProtein [Mass/volume] in Serum or PlasmaOrdered By: Marlon Leon on 84-69-4491Juqdqld [Mass/Vol]5.7 g/dL6.1-7.9The [facility] SystemProthrombin Time INRon 57-26-8452LDP Coag (PPP) [Relative time]1.0 {INR} NormalThe Metrohealth SystemComment on above:Result Comment: INR Therapeutic Range A) [...] PT, PTT, CMP, PHOS, MG, LIPID #### [facility] [address] [place] [address] USAPT Coag (PPP) [Time]11.7 sNormal9.0-12.9The Metro[facility] SystemComment on above:Performed By: #### HS TROP, PT, PTT, CMP, PHOS, MG, LIPID #### [facility] [address] [place] [address] USASerum or plasma alanine aminotransferase measurement without P-5'-P (enzymatic activiOrdered By: Marlon Leon on 70-05-8365BNG No additional P-5'-P [Catalytic activity/Vol]25 U/S09-49YctvdwlqxSelect Medical [facility], Avonerum or plasma albumin/globulin mass ratioOrdered By: Marlon Leon on 55-40-8116Mcljhgw/Globulin [Mass ratio]1.2 {ratio}[facility], Avonerum or plasma alkaline phosphatase measurement (enzymatic activity/volume)Ordered By: Marlon Leon on 87-13-6116HBV [Catalytic activity/Vol]57 U/F77-41FkdpkckdoSelect Medical [facility], Avonerum or plasma aspartate aminotransferase measurement (enzymatic activity/volume)Ordered By: Marlon Leon on 29-56-6005PRZ [Catalytic activity/Vol]20 U/T99-00LqvjuxauhSelect Medical [facility], Avonerum or plasma calcium measurement (mass/volume)Ordered By: Marlon Leon on 65-79-1688Atmtlfv [Mass/Vol]9.1 mg/dL8.2-10.2FWilson Healtherum or plasma chloride measurement (moles/volume) Ordered By: Marlon Leon on 19-98-6286Klbrvaox [Moles/Vol]108 mmol/L95-114 [facility], Avonerum or plasma glucose measurement (mass/volume)Ordered By: Marlon Leon on 00-71-7215Chhjnlh [Mass/Vol]65 mg/dL 70-100The [facility] SystemComment on above:ADA recommended reference range Random Glucose Reference Range is dependent on time and content of last meal. Glucose of more than 200 mg/dL in a nonstressed, ambulatory subject supports the diagnosis of Diabetes Mellitus.Serum or plasma high density lipoprotein (HDL) cholesterol measurementOrdered By: Marlon Leon on 67-17-8208Zbldhwitcjv in HDL [Mass/Vol]58 mg/aV32-28TtsozkdksThe Metrohealth SystemComment on above:HDL CHOL ATP-III CLASSIFICATION Cardiovascular Risk HDL > or equal to 60 mg/dL LOW HDL < 40 mg/dL HIGHSerum or plasma potassium measurement (moles/volume)Ordered By: Marlon Leon on 84-40-4504Ehwvobbav [Moles/Vol]4.1 mmol/L3.5-5.1FWilson Healtherum or plasma sodium measurement (moles/volume)Ordered By: Marlon Leon on 18-17-7309Nswyce [Moles/Vol]140 mmol/I556-365HasysosvfSelect Medical [facility], Avonerum or plasma total bilirubin measurement (mass/volume) Ordered By: Marlon Leon on 09-91-3426Egctsulez [Mass/Vol]0.5 mg/dL0.3-1.2 [facility] [place] or plasma total carbon dioxide measurement (moles/volume)Ordered By: Marlon Leon on 85-37-2350QJ7 [Moles/Vol] 25.1 mmol/L22.0-30.0[facility] [place]onerum or plasma total cholesterol/high density lipoprotein (HDL) cholesterol mass ratOrdered By: Marlon Leon on 32-62-2024Wtyheacwxux.total/Cholesterol in HDL [Mass ratio]2.2 {ratio} [facility] [place] or plasma urea nitrogen measurement (mass/volume)Ordered By: Marlon Leon on 93-18-2298Fpkv nitrogen [Mass/Vol]27 mg/dL9-23The Metro[facility] SystemTriglyceride [Mass/volume] in Serum or PlasmaOrdered By: Marlon Leon on 15-24-9334Eidqnclsckfr [Mass/Vol]69 mg/dL 35-149The Metrohealth SystemComment on above:TRIG ATP III CLASSIFICATION TRIG less than 150 mg/dL Normal TRIG 150-199 mg/dL Borderline high TRIG 200-500 mg/dL High TRIG greater than 500 mg/dL Very high Standard traceable to the Center for Disease Conrtrol and Prevention (CDC) test method.Troponin I High Sensitivityon 89-84-4307Jaaamjnc I High Grvzahotygu925 pg/mLOff scale [address] StreetComment on above:Order Comment: draw both at 11:35 with per Shahnaz Kumari Comment: Critical value result called at 1246 on 06/24/21 PERFORMED BY: [facility] [place] [address] PATHOLOGIST [employer]ENDER ROLL PRESS OPERATOR NARGIS CLEMENS M.D.Performed By: #### GLULS #### Point of Care testing ,Troponin I High Dqcebtwrhrp1436 pg/mLOff scale [address] StreetComment on above:Result Comment: Results called at 0635 on 06/24/21 PERFORMED BY: [facility] [address] [place] [address] PATHOLOGIST CALENDER ROLL PRESS OPERATOR NARGIS CLEMENS M.D.Performed By: #### HS TROP, PT, PTT, CMP, PHOS, MG, LIPID #### [facility] [address] [id number] [facility] CENTERCNOV [phone] Visit (VASSFT) --------RIVKA TURNER ([id number]) 1945 FDa Time Provider Department09/19/17 11:30 AM ROSIE MELLO During your visit today, we recorded the following information about you: Pulse Respiration Blood pressure Weight 52/minute 16/minute 115/46 93.4 kg Height 1.626 Margarita Mello MD 09/19/2017 11:59 AM [facility] InstituteRobmemorial medical center and [facility] Department of Cardiovascular MedicineOUTPATIENT VISIT DATE September 19, 2017OUTPATIENT VISIT TYPENEWPRIMARY CARE PHYSICIAN:Amadro Abdalla MD ([facility])[address] [place], [place] [address]Nsrna: [phone]: [phone] PAYAM Wilkins MD[address] [place] [address]TIZUU COMPLAINT:No chief complaint on file.HISTORY OF PRESENT [...] On ASA, statin.HUMBERTO/PVR performed at [facility], right 0.94, left 1.14.PAST MEDICAL HISTORYDiagnosis [...] Prochlorperazine UnknownMEDICATIONS:medical supply, m iscellaneous (COMMODE PAIL [facility]) USE DIRECTEDVENTOLIN HFA 90 mcg/actuation inhaleramLODIPine (NORVASC) 10 mg tablet Take 1 tablet by mouth once daily.atorvastatin (LIPITOR) 40 mg tablet Take 1 tablet by mouth daily at bedtime.HiveooUCH ULTRA BLUE TEST STRIP test strip twice daily. TEST TWICE DAILY HiveooUCH ULTRA2 monitoring kit twice daily. TEST TWICE DAILYSTOOL SOFTENER 100 mg capsule Take 100 mg by mouth once daily.fluticasone (FLONASE) 50 mcg/actuation nasal sprayfurosemide (LASIX) 40 mg tablet Take 1 tablet by mouth once daily.glipiZIDE (GLUCOTROL) 10 mg tablet Take 2 tablets by mouth once daily.hydrALAZINE (APRESOLINE) 50 mg tablet Take 1 tablet by mouth twice daily.ONETOUCH DELICA LANCETS 30 gauge john douglas french centerc twice daily. TEST TWICE DAILYlosartan-hydrochlorothiazide (HYZAAR) [...] Wilkins of podiatry.Beverley Wild Provider: TURNER WILKINS [[id number]]Allergies As of Date: 09/19/2017 Noted Allergy ReactionCLINDAMYCIN [...] mellitus (HCC) [E11.42] PAD (peripheral artery disease) ([facility]) [I73.9]Prescriptions as of 09/19/2017 Sig: COMMODE PAIL [...] to improve.Follow-up and Disposition History RecordedEncounter Number: [id number] Status:Closed by ROSIE MELLO MD on09/19/17NoPremier Health [facility] [phone] mass concHNO ID: [id number]: Rosie MelloSer: (none)Author Type: PhysicianType: Progress NotesFiled: 09/19/2017 11:59 AMNote Text:Heart and Vascular InstituteJerusalem and [facility] Department of Cardiovascular MedicineOUTPATIENT VISIT DATE September 19, 2017OUTPATIENT VISIT TYPENEWPRIMARY CARE PHYSICIAN:Amador Abdalla MD ([facility])[address] [place], [place] [address]Tgdje: [phone]: [phone] PHYSICIANChrisyi Wilkins MD[address] [place] [address]GYLKK COMPLAINT:No chief complaint on file.HISTORY OF PRESENT [...] On ASA, statin.HUMBERTO/PVR performed at [facility], right 0.94, left 1.14.PAST MEDICAL HISTORYDiagnosis [...] Penicillins Rash- Prochlorperazine UnknownMEDICATIONS:medical supply, miscellaneous ([facility] [...] up with Dr Wilkins of podiatry.Rosie Mello MDNormalCSelect Medical Specialty Hospital - [facility] Vital Signs Date TimeVital SignValuePerforming ZmmkteygpZjkysieu67-73-1823 14:26-0400Body wecklv709.6 Cisco Cueva MD Work Phone: [facility] [place] Zjjcqo20-17-5822 14:26-0400Body mass index (BMI) [Ratio]30.55 kg/t2BlywvnKirby Cueva MD Work Phone: [facility]10-22-2025 14:26-0400Body dxchzpyhhln09.69 [degF]Kirby Cueva MD Work Phone: [phone] [place], [place] [address]10-22-2025 14:26-0400Body .74 kgKirby Cueva MD Work Phone: [phone] [place] [address] [place] Igowed09-13-6242 12:25-0400Body othcpkrzfqr31.4 [degF]Yasmin Goodrich MD Work Phone: [phone] [place] [address] [place] Rarslr60-42-0699 12:25-0400Diastolic blood ggkanahv85 mm[Hg]Yasmin Goodrich MD Work Phone: 1([phone])[facility] [place], [place] [address]10-13-2025 12:25-0400Heart rate 62 /Mich Goodrich MD Work Phone: [phone] [place] [address] [place] Cripwq47-93-9442 12:25-0400 Respiratory rate16 /Mich Goodrich MD Work Phone: [phone])431-[address] [place] [address] [place] Vjqhjv18-14-9162 12:25-2995VdT8% (BldA) [Mass fraction]98 %Yasmin Goodrich MD Work Phone: 1(190)[facility] [place], [place] [address]10-13-2025 12:25-0400Systolic blood fdgkpafb803 mm[Hg]Yasmin Goodrich MD Work Phone: [phone] Warner StreetCaymas Systems Ivpxlq95-91-9315 05:18-0400Body mass index (BMI) [Ratio]30.69 kg/r8WxebkYasmin Goodrich MD Work Phone: [phone])340-[address] [place] [address] [place] Cvghev70-38-7414 05:18-0400Body zusnhm17.1 kgYasmin Goodrich MD Work Phone: [facility]10-09-2025 10:11-0400Body xeznfv194.6 Lashon Goodrich MD Work Phone: [facility]07-17-2025 16:38-0400Body baiymi027.5 cmTurner Wilkins DPM Work Phone: [facility] CenterJajhfnkixu90-22-0892 16:38-0400Body mass index (BMI) [Ratio]30.18 kg/m8UawyefazTurner Wilkins DPM Work Phone: [facility] CenterRkymjhonie76-83-1946 16:38-0400Body auemct07.84 kgTurner Wilkins DPM Work Phone: [facility] CenterLbritlprji18-55-4257 16:38-0400Respiratory rate18 /minTurner Wilknis DPM Work Phone: [facility] CenterUckpvyihsc49-30-9237 13:45-0400Body alrxpi291.5 cmAmador Abdalla MD Work Phone: [facility] CenterBgrepnvdct65-36-7917 13:45-0400Body mass index (BMI) [Ratio]30.18 kg/m2Amador Abdalla MD Work Phone: [facility] CenterEmqcgarbqs57-21-6722 13:45-0400Body temperature 97.5 [degF]Amador Abdalla MD Work Phone: [facility] CenterDnmyjbitvr33-40-6712 13:45-0400Body kwfuwz27.84 kgAmador Abdalla MD Work Phone: [facility] CenterFvhdqwvewz40-03-6176 13:45-0400Diastolic blood uliwdubr48 mm[Hg]Amador Abdalla MD Work Phone: [facility] CenterYvzyxitpix03-74-7035 13:45-0400Heart rate67 /min Amador Abdalla MD Work Phone: [facility] CenterCfkwqcdylq08-71-6386 13:45-0400Respiratory rate20 /minAmador Abdalla MD Work Phone: [facility] CenterAqhprtkkbj51-33-8727 13:45-3500WcT9% (BldA) [Mass fraction]97 %Amador Abdalla MD Work Phone: [facility] CenterVpknkarivl76-85-8405 13:45-0400Systolic blood emipxbgr068 mm[Hg]Amador Abdalla MD Work Phone: [facility] CenterIwnmwcmzti06-66-1241 16:44-0400Body rjyafq636.5 cmStanleyjayna Wilkins DPM Work Phone: [facility] CenterWvacwnpqmx65-48-3732 16:44-0400Body mass index (BMI) [Ratio]31.83 kg/b1Uquyehfyjayna Wilkins DPM Work Phone: [facility] CenterTpfdqgpruh60-51-0689 16:44-0400Body kiguzi94.93 kgStanleyjayna Wilkins DPM Work Phone: [facility] CenterEetkgbtmqm09-80-9505 16:44-0400Respiratory rate16 /minStanleyjayna Wilkins DPM Work Phone: [facility] CenterPhmhzomctc26-71-4542 11:13-0400Body zxxoke887.5 cmAmador Abdalla MD Work Phone: [facility] CenterZnxbthoozy24-19-9026 11:13-0400Body mass index (BMI) [Ratio]31.83 kg/m2Amador Abdalla MD Work Phone: [facility] CenterLddyibyiso78-89-5320 11:13-0400Body temperature 96.4 [degF]Amador Abdalla MD Work Phone: [facility] CenterLbqconebde63-46-7116 11:13-0400Body wwywzf60.93 kgAmador Abdalla MD Work Phone: [facility] CenterSyxwvdawyu02-84-0661 11:13-0400Diastolic blood bxnuuexc40 mm[Hg]Amador Abdalla MD Work Phone: [facility] CenterKibmvixnjg16-35-1754 11:13-0400Heart rate79 /min Amador Abdalla MD Work Phone: [facility] CenterPdjbznprjh06-06-3629 11:13-0400Respiratory rate22 /minDaisyc Jonh BARRIOS Work Phone: [facility] CenterMufxdphkjj59-17-0501 11:13-9749FvR5% (BldA) [Mass fraction]94 %Amador Abdalla MD Work Phone: [facility] CenterGiuikdqgdw45-04-6023 11:13-0400Systolic blood bivohfxz877 mm[Hg]Amador Abdalla MD Work Phone: [facility] CenterFrmhtbckhg96-07-0028 08:18-0400Body mass index (BMI) [Ratio]30.93 kg/f3Vedivv Furlong DO Work Phone: [facility] [place] Puurta41-57-4778 08:18-0400Body fiisdmkqxsa76.5 [degF]Boby Varnerng DO Work Phone: [facility]03-25-2025 08:18-0400Body .74 kgDenbianka Varnerng DO Work Phone: [facility] [place] Gvvxuw25-98-7127 08:18-0400Diastolic blood uvhevidt52 mm[Hg]Boby Varnerng DO Work Phone: [facility]03-25-2025 08:18-0400Heart rate 67 /Bam Joneslong DO Work Phone: [facility]03-25-2025 08:18-0400 Respiratory rate16 /minDennis Karenlong DO Work Phone: [facility]03-25-2025 08:18-6945XpK9% (BldA) [Mass fraction]93 %Boby Joneslong DO Work Phone: [facility]03-25-2025 08:18-0400Systolic blood cesopxss678 mm[Hg]Boby Joneslong DO Work Phone: [facility] [place] Ounqmz20-99-9738 14:42-0400Body .6 cmDenbianka Joneslong DO Work Phone: [facility] Fluxgi17-38-7534 14:42-0400Body mass index (BMI) [Ratio]32.03 kg/o7Hziviu Furlong DO Work Phone: [facility] Tqgcfb33-81-3017 14:42-0400Body opmrwnuwvpc56.39 [degF]Boby Karenlong DO Work Phone: [facility] HospitalMir[facility]icon[facility]03-18-2025 14:42-0400Body woxuif28.64 kgDennis Karenlong DO Work Phone: [facility]03-18-2025 14:42-0400Diastolic blood yjaypkeq41 mm[Hg]Boby Joneslong DO Work Phone: [facility] Eobara00-31-7707 14:42-0400Heart rate 79 /Bam Joneslong DO Work Phone: [facility]03-18-2025 14:42-0400 Respiratory rate16 /Anneis Karenlong DO Work Phone: [facility]03-18-2025 14:42-1972YkN1% (BldA) [Mass fraction]92 %Boby Joneslong DO Work Phone: [facility] Lfcbmb05-86-6072 14:42-0400Systolic blood lcypajnk116 mm[Hg]Boby Joneslong DO Work Phone: [facility] Thqwtd85-32-1026 10:49-0400Body yefsfipixsg62.81 [degF]Boby Joneslong DO Work Phone: [facility] Qoasxt40-63-4279 10:49-0400Body cpjezr36.64 kgDenbianka Joneslong DO Work Phone: [facility] Hayoef95-89-9202 10:49-0400Diastolic blood vjvmupfl46 mm[Hg]Boby Joneslong DO Work Phone: [facility] Ezdsbw85-59-1725 10:49-0400Heart rate 88 /minDramyais Furlong DO Work Phone: [facility] Lphuul16-33-9033 10:49-0400 Respiratory rate16 /minDennis Furlong DO Work Phone: [facility] [place] Wannqa72-55-8103 10:49-7182AvL9% (BldA) [Mass fraction]98 %Boby Furlong DO Work Phone: [facility] [place] Wjojvv83-11-6948 10:49-0400Systolic blood werarald408 mm[Hg]Boby Furlong DO Work Phone: [facility] [place] Maalwp97-99-9286 13:26-0500Body .6 cmSlicknis Karenlong DO Work Phone: [facility] [place] Eoepcc44-10-6350 13:26-0500Body mass index (BMI) [Ratio]32.79 kg/r5Hgtbmw Furlong DO Work Phone: [facility] [place] Robpaf13-10-8217 13:26-0500Body iihzkebjvlj44.7 [degF]Boby Joneslong DO Work Phone: [facility] [place] Cwkcty52-27-9737 13:26-0500Body deosbh46.64 kgDenbianka Joneslong DO Work Phone: [facility] [place] Clvpxd57-23-8444 13:26-0500Diastolic blood gyxbokcy02 mm[Hg]Bobybianka Joneslong DO Work Phone: [facility] [place] Novuzm94-12-4744 13:26-0500Heart rate 72 /Anneis Furlong DO Work Phone: [facility] Narizs57-69-1479 13:26-0500 Respiratory rate18 /minDramyais Karenlong DO Work Phone: [facility] Ckuqly13-10-5288 13:26-5154TlM0% (BldA) [Mass fraction]94 %Bobybianka Joneslong DO Work Phone: [facility]03-07-2025 13:26-0500Systolic blood zqzkapqm171 mm[Hg]Boby Earl DO Work Phone: [facility]01-10-2025 11:47-0500Body .5 cmAmador Abdalla MD Work Phone: [facility] CenterZimaujajcn58-82-3524 11:47-0500Body mass index (BMI) [Ratio]33.47 kg/m2Amador Abdalla MD Work Phone: [facility] CenterInwpxlrphj72-95-2589 11:47-0500Body temperature 97.11 [degF]Amador Abdalla MD Work Phone: [facility] CenterTzhjqejdxo37-26-4140 11:47-0500Body freclr09.01 kgAmador Abdalla MD Work Phone: [facility] CenterWdmyypzivv76-92-2903 11:47-0500Diastolic blood mm[Hg]Amador Abdalla MD Work Phone: [facility] CenterYewtudlgzw18-43-0877 11:47-0500Heart rate77 /min Amador Abdalla MD Work Phone: [facility] CenterDipjbfqxtx18-07-8487 11:47-0500Respiratory rate22 /minAmador Abdalla MD Work Phone: [facility] CenterReoogcyhoq51-90-1042 11:47-8321IeF9% (BldA) [Mass fraction]97 %Amador Abdalla MD Work Phone: [facility] CenterYdlwriufhs23-91-6730 11:47-0500Systolic blood wicebjnz709 mm[Hg]Amador Abdalla MD Work Phone: [facility] CenterPshcygfvzq97-44-1417 10:05-0500Body .5 cmTurner Wilkins DPM Work Phone: [facility] CenterLnmkciwtzd46-56-2833 10:05-0500Body mass index (BMI) [Ratio]34.57 kg/a8BdnxyuhpTurner Wilkins DPM Work Phone: no[facility] CenterYnnozgprfa29-87-6256 10:05-0500Body aopgky85.73 kgTurner Wilkins DPM Work Phone: no[facility] CenterEpbufubulz58-11-3719 10:05-0500Respiratory rate18 /minTurner Wilkins DPM Work Phone: no[facility] CenterKkvabhdzjm58-89-5901 14:28-0400Body utflgh759.5 cmAmador Abdalla MD Work Phone: NOMercy [facility], formerly [facility] CenterCdkbmywnkp23-74-1451 14:28-0400Body mass index (BMI) [Ratio]34.57 kg/m2Amador Abdalla MD Work Phone: [facility] CenterCcxiggvsli03-74-0710 14:28-0400Body temperature 97.11 [degF]Amador Abdalla MD Work Phone: no[facility] CenterSwvuzlpqxk50-65-4388 14:28-0400Body ncnuxc98.73 kgAmador Abdalla MD Work Phone: no[facility] CenterDnjkewbemp86-49-9915 14:28-0400Diastolic blood jnbbputg41 mm[Hg]Amador Abdalla MD Work Phone: no[facility] CenterHfjsvvqwbz30-10-4709 14:28-0400Heart rate90 /min Amador Abdalla MD Work Phone: no[facility] CenterRocpmrnajn94-12-5516 14:28-0400Respiratory rate20 /minAmador Abdalla MD Work Phone: [facility] CenterSowzgscnju55-28-5454 14:28-0714ZvO9% (BldA) [Mass fraction]95 %Amador Abdalla MD Work Phone: [facility] CenterZbxttnxdtc84-48-3807 14:28-0400Systolic blood uzsuiwjr079 mm[Hg]Amador Abdalla MD Work Phone: [facility] CenterUrkmktkepj77-46-4236 12:15-0400Body temperature 98.1 [degF]MD Amador Abdalla Work Phone: 1(982)779-[facility]05-07-2022 12:15-0400 Diastolic blood tkrtaehy11 mm[Hg]MD Amador Abdalla Work Phone: 1(406)734-[address] [place], [place] [address]105-07-2022 12:15-0400 Heart rate64 /minMD Amador Albrechteva Work Phone: [phone])[address]05-07-2022 12:15-0400 Respiratory rate18 /minMD Amador Dobbinsadore Work Phone: [phone])[address]05-07-2022 12:15-0400 SaO2% (BldA) [Mass fraction]96 %MD Amador Abdalla Work Phone: [phone])[address]05-07-2022 12:15-0400 Systolic blood yvstvtyk135 mm[Hg]MD Amador Abdalla Work Phone: 1(597)[address]05-07-2022 08:00-0400 Inhaled oxygen flow rate3 L/minMD Amador Albrechteva Work Phone: [phone])[address]05-07-2022 06:00-0400 Body noqlsw73.5 kgMD Amador Albrechteva Work Phone: [phone])[address]05-06-2022 04:05-0400 Body .56 cmMD Amador Dobbinsadore Work Phone: 1(062)908-[address] [place], [place] [address]105-06-2022 04:05-0400 Body mass index (BMI) [Ratio]34.9 kg/m2MD Amador Dobbinsadore Work Phone: 1(725)250-[address] [place], [place] [address]105-05-2022 19:30-0400 Diastolic blood gnkebadu60 mm[Hg]Et3 AkdhhtstBupckLqjfix96-07-4053 19:30-0400 Heart rate80 /minEt3 RcrnxzbpBwghdBheypc51-45-7522 19:30-0400Respiratory rate16 /minEt3 HzjwmxbfCrfltGgxjtc21-75-7818 19:30-8586BkJ3% (BldA) [Mass fraction]98 % Et3 MexzpxfnBlrcyBatmej21-32-7213 19:30-0400Systolic blood eltwityo465 mm[Hg]Et3 ResourceMetroHealth Encounters Encounter DateEncounter TypeCare ProviderFacilityStart: 12-10-2024 End: 01-18-7270ziuwbrhfquHVALNU D WILLIAMSCleveland Clinic [facility] Hospitaltart: 12-10-2024 End: 47-89-6365Lpslbt follow up visit related to original Devon Cueva MD Work Phone: [facility]/Trauma and Adult ReconstructionComment on above:Age-related osteoporosis with current pathological fracture with routine healing (Primary Dx); History of right hip hemiarthroplasty; Closed fracture of neck of right femur, sequelaStart: 12-09-2024 End: 63-83-4539Ounxvv OnlyJason [facility] Orthopedics/Trauma and Adult ReconstructionComment on above:S/P hip hemiarthroplasty (Primary Dx)Start: 12-02-2024 End: 01-13-2569jceozwogqkWJBTDuke Health HospitalStart: 11-27-2024 End: 32-55-9986hfwcvmkcayMSLIDuke Health HospitalStart: 11-26-2024 Encounter for other preprocedural examinationSOhioHealth [facility] Start: 11-26-2024 End: 33-38-5782Xvacodezap and management of inpatientGian Green DO Work Phone: [facility] AcuteStart: 11-26-2024 End: 59-17-9727Yhtdrvmip department patient visitMARCameron Regional Medical Center HospitalStart: 97-45-5534Qbeyqahtx for other preprocedural examinationSHAWN SANTIAGOBucyrus Community Hospitaltart: 02-67-8487lwpkgidmlnGJPKAshtabula General Hospitaltart: 09-04-2024 End: 82-52-9526Nikwqtv encounter procedureNicjayna Wilkins DPM Work Phone: [facility] CI PODIATRYComment on above:Type 2 diabetes mellitus without complication, unspecified whether penitentiary insulin use (HCC) (Primary Dx); Pain due to onychomycosis of toenails of both feet; Venous insufficiencyStart: 09-04-2024 End: 27-81-4025mlpebxaoknPSQZYMDT A BROWNNot AvailableStart: 09-04-2024 End: 19-07-7078Ijcogf Antoino Wilkins DPM Work Phone: [facility] CI PODIATRYStart: 09-04-2024 End: 31-55-9195Wgkoun flowsJuan Wilkins DPM Work Phone: [facility] CI PODIATRYStart: 09-03-2024 End: 70-21-2266Gbzxqx Derrell Abdalla MD Work Phone: [facility] CWM FMComment on above:Primary insomniaStart: 08-28-2024 End: 25-37-6461Pcqguyravi Abdalla MD Work Phone: [facility] CWM FMStart: 08-28-2024 End: 12-18-4780Cbkxolravi Abdalla MD Work Phone: [facility] CWM FMStart: 08-28-2024 End: 81-18-1722Xpsvpn outpatient visit 25 minutesAmador Abdalla MD Work Phone: [facility] CWM FMComment on above:Type 2 diabetes mellitus with hyperglycemia, without long-term current use of insulin (HCC) (Primary Dx); Benign essential hypertension ; Fibromyalgia; Major depressive disorder, recurrent episode, mild ; Generalized anxiety disorder ; Chronic diastolic heart failure (HCC); Primary insomnia; Stage 3b chronic kidney disease (CKD) ([facility]-HCC)Start: 08-28-2024 End: 29-25-1140hyjevrngqzDCER NADERERNot AvailableStart: 07-21-2024 End: 30-54-2293yyukmlnpmoYDGVVP [facility] Start: 07-12-2024 End: 15-35-7996jytqmapiuzHmfxyavf C BordnerFacility:CC Abebetart: 06-19-2024 End: 09-22-9954xojviewocoVRMYXYDG A BROWNNot AvailableStart: 06-19-2024 End: 55-83-1111Ixtnxxp encounter procedureTurner Wilkins DPM Work Phone: NOYF CI PODIATRYComment on above:Type 2 diabetes mellitus without complication, unspecified whether penitentiary insulin use (Primary Dx); Pain due to onychomycosis of toenails of both feet; Venous insufficiencyStart: 06-19-2024 End: 66-36-5597Bdomsf flowsheetTurner Isrrael Will DPM Work Phone: [facility] CI PODIATRYStart: 06-19-2024 End: 20-79-1976Sescmw leonidasheetRenanatasha Arcos Will DPM Work Phone: [facility] CI PODIATRYStart: 06-09-2024 End: 83-85-7582GcndgnYrng Naderer MD Work Phone: n[facility] CWM FMComment on above:Primary osteoarthritis of both kneesStart: 06-03-2024 End: 22-31-8589JzrpedWsexarff Hohman MD Work Phone: noms FNR FMComment on above:Type 2 diabetes mellitus with hyperglycemia, without long-term current use of insulin (CMS/HCC); Chronic diastolic heart failure (CMS/HCC)Start: 05-27-2024 End: 28-30-9869Rxkyama encounter Jeb Abdalla MD Work Phone: noms HealthcareStart: 05-27-2024 End: 90-06-4522Grutht follow up visit related to original Alfredo Abdalla MD Work Phone: noms CWM FMComment on above:Medicare annual wellness visit, subsequent (Primary Dx); Upper respiratory tract infection, unspecified type; Benign essential hypertension (CMS/HCC); Type 2 diabetes mellitus with hyperglycemia, without long-term current use of insulin (CMS/HCC)Start: 05-27-2024 End: 11-24-8816Ixaoix Derrell Abdalla MD Work Phone: noMS CWM FMComment on above:Type 2 diabetes mellitus with hyperglycemia, without long-term current use of insulin (CMS/HCC) (Primary Dx)Start: 05-13-2024 End: 44-52-3828Wftqmblnos Salazar Earl UniQure Work Phone: [facility] Internal Medicine - Family MedicineComment on above:Chronic diastolic congestive heart failure (CMS-HCC) (Primary Dx); Essential hypertension; Other fracture of unspecified lumbar vertebra, subsequent encounter for fracture with routine healing; Generalized anxiety disorderStart: 05-06-2024 End: 04-74-7619egeizhcvloFcyxyr G Furlong DO Work Phone: [facility] Internal Medicine - Family MedicineComment on above:Chronic diastolic congestive heart failure (CMS-HCC) (Primary Dx); Other fracture of unspecified lumbar vertebra, subsequent encounter for fracture with routine healing; Essential hypertension; Type 2 diabetes mellitus with stage 3b chronic kidney disease, with long-term current use of insulin (CMS-HCC)Start: 04-29-2024 End: 81-84-0002Pedynrxslv Salazar Earl Uni[employer] Work Phone: [facility] Internal Medicine - Family MedicineComment on above:Chronic diastolic congestive heart failure (CMS-HCC) (Primary Dx); Type 2 diabetes mellitus with stage 3b chronic kidney disease, with long-term current use of insulin (CMS-HCC); Other fracture of unspecified lumbar vertebra, subsequent encounter for fracture with routine healing; Generalized anxiety disorderStart: 04-25-2024 End: 96-50-6157Igrxvksccr Salazar Earl UniQure Work Phone: [facility] Internal Medicine - Family MedicineComment [...] deficits; Recurrent major depressive disorder, in remission ([facility]); Generalized anxiety disorder; Weakness; Old myocardial infarction; History of fallingStart: 04-02-2024 End: 18-91-7086Njrzoasrk Result EncounterGeneric External Data ProviderNOMS External Department UnsolicitedStart: 04-02-2024 End: 67-14-3389Tuhsubdkz Result EncounterGeneric External Data ProviderNOMS External Department UnsolicitedStart: 03-25-2024 End: 75-26-8650PetwekOiio Naderer MD Work Phone: noms CW FMComment on above:Primary insomniaStart: 03-19-2024 End: 39-95-4337Xvfmfbqw Result EncounterAmador Abdalla MD Work Phone: noms External Department UnsolicitedStart: 03-19-2024 End: 39-07-5601Nyuddico Result EncounterAmador Abdalla MD Work Phone: noms External Department UnsolicitedStart: 03-19-2024 End: 50-13-2349qwlvuozzexELGD NADEREMilwaukee [facility]– [facility] HospitalStart: 03-05-2024 End: 53-07-9530Hepehauzj Result EncounterAmador Abdalla MD Work Phone: noms External Department UnsolicitedStart: 03-05-2024 End: 39-61-5288Rfdltbhxp Result EncounterAmador Abdalla MD Work Phone: noms External Department UnsolicitedStart: 02-29-2024 End: 53-39-0984Zitofm flowsHemant Abdalla MD Work Phone: noms CW FMStart: 02-29-2024 End: 89-16-8227Ufvvlh Chong Abdalla MD Work Phone: noms CW FMStart: 02-29-2024 End: 87-39-1274wiaqunrcvtLOIY NADERERNot AvailableStart: 02-29-2024 End: 69-36-0069Sgemkc outpatient visit 25 minutesAmador Abdalla MD Work Phone: noMS CWM FMComment on above:Left elbow pain (Primary Dx); Type 2 diabetes mellitus with hyperglycemia, without long-term current use of insulin ([facility]); Benign essential hypertension ([facility]); Chronic diastolic heart failure ([facility]); Encounter for long-term (current) use of medications; Primary osteoarthritis of both knees; Stage 3b chronic kidney disease (CKD) ([facility]); Dyslipidemia ([facility]); Class 1 obesity due to excess calories with serious comorbidity and body mass index (BMI) of 33.0 to 33.9 in adult; Type 2 diabetes mellitus with diabetic chronic kidney disease ([facility])Start: 02-25-2024 End: 91-79-2558RcdeygCoxb Naderer MD Work Phone: noms CWM FMComment on above:Primary osteoarthritis of both kneesStart: 02-07-2024 End: 90-68-7973Qdeepl Antonio Wilkins DPM Work Phone: noMS CI PODIATRYStart: 02-07-2024 End: 61-99-8354Nmujfv Antonio Wilkins DPM Work Phone: noMS CI PODIATRYStart: 02-07-2024 End: 36-19-6326Kiwrsgt encounter procedureTurner Wilkins DPM Work Phone: noms CI PODIATRYComment on above:Type 2 diabetes mellitus without complication, unspecified whether buttermaker continuous churn insulin use ([facility]) (Primary Dx); Pain due to onychomycosis of toenails of both feet; Venous insufficiencyStart: 02-07-2024 End: 49-35-7604mxpmgjjzxoNJFZSAEB A BROWNNot AvailableStart: 01-23-2024 End: 61-03-9168GvhbmwRnwz Naderer MD Work Phone: noms CWM FMComment on above:Primary osteoarthritis of both kneesStart: 01-22-2024 End: 01-73-8949QrhylvAudh Naderer MD Work Phone: noms CWM FMComment on above:Primary insomniaStart: 11-18-2023 End: 70-48-1913Pxbsclfgj Result EncounterGeneric External Data ProviderNOMS External Department UnsolicitedStart: 11-18-2023 End: 54-23-1132Atxwcygmp Result EncounterGeneric External Data ProviderNOMS External Department UnsolicitedStart: 11-12-2023 End: 39-98-8448Bukdwf outpatient visit 25 minutesAmador Abdalla MD Work [...] 30-39.9); Acute UTI; Skin candidiasis; CAD in [place] artery (CMS/HCC); Type 2 diabetes mellitus with diabetic chronic kidney disease (HCC) (CMS/HCC) Start: 11-12-2023 End: 89-98-1861wguqddnzvfOEDD NADERERNot AvailableStart: 11-12-2023 End: 35-87-5848Ignhhh Chong Abdalla MD Work Phone: noms CWM FMStart: 11-12-2023 End: 27-26-0550Faprti Chong Abdalla MD Work Phone: noms CWM FMStart: 89-87-9916Qk Priscacarmen ReadOsmel DO Work Phone: [phone]-Vssho [facility] [address] DO Work Phone: Start: 07-03-2022 End: 19-44-5974isztvbqmnxED AMADOR A NADERERFacility:I9Fqmro: 05-26-2022 End: 34-32-0017lolpklvjusJA AMADOR A NADERERFacility:X7Mxsbp: 05-14-2022 End: 00-82-8417jnfjjxuyamUA AMADOR A NADERERFacility:P5Gaiwo: 05-04-2022 End: 99-22-7738qwtxsivkeoHE AMADOR A NADERERFacility:G1Rfney: 12-01-2021 End: 66-01-9698audpifuwobZQ AMADOR A NADERERFacility:R9Vyaob: 16-02-0110[facility] Zafar Bolivar DO Work Phone: [phone]-Ebjhv [facility] [address] DO Work Phone: Start: 09-09-2021 End: 81-94-2657defskqahlwWH AMADOR A NADERERFacility:U3Ahvmj: 08-31-2021 End: 00-19-6218peyxsdjftcIF AMADOR A NADERERFacility:K7Fzbpt: 08-27-2021 End: 89-98-6962usrzbemhicEMOJSNZ D KATKOFacility:O8Nycjq: 38-74-4285vzvkhwddtiHI OBED DAISYRBELFacility:S0Scoqz: 08-16-2021 End: 09-81-4570xnoqtorqilJA BERNADETTE ANGELES .Facility:H5Zkolb: 08-01-2021 End: 25-98-4811fccmrpceceBCFHUEX BOESFacility:F1Rzlid: 07-27-2021 End: 80-12-9123avonxppyxpBWZVIVI BOESFacility:K8Prhyu: 07-15-2021 End: 69-62-5744suisvbdijtNK AMADOR A NADERERFacility:L2Mjnjw: 06-25-2021 End: 36-38-1049rbptjcxqukOWRIOMW PROVIDERFacility:METROHealthStart: 06-24-2021 End: 15-87-6337Wyzjitesrt and management of inpatientMarc John Facility:[facility] Avontart: 06-24-2021 End: 49-69-0349Urhyuxxeaa and management of inpatientMD Amador Abdalla Work Phone: [facility] [place] [facility] Start: 06-23-2021 End: 40-89-8280mrbbixarqcBh8 ResourceMetroHealth Emergency Triage, Treat and TransportStart: 06-23-2021 End: 77-85-6327Oxcdhzbue department patient visitEt3 ResourceMetroHealth Emergency Triage, Treat and TransportComment on above:ArrivedStart: 11-21-2018 End: 77-42-9492Jossedb encounter procedureOMAR AL-HOURANIFacility:UTMCStart: 09-19-2017 End: 41-39-8264Kurblig encounterDANILU LOPEZRUPAUniversity Hospitals Conneaut Medical Centerveland Procedures DateProcedureProcedure DetailPerforming ClinicianStart: 05-16-2411VEDARSS Christine Goodrich MD Work Phone: Start: 04-80-1054BUSBGWP Christine Goodrich MD Work Phone: [phone]: 74-98-1487Gixaticfgfxmv metabolic Estrada Goodrich MD Work Phone: [phone]: 85-07-1379MHEWZRZ Christine Goodrich MD Work Phone: [phone]: 31-48-3468LPJSMLT Christine Goodrich MD Work Phone: Start: 20-09-2952YUNLQJI Christine Goodrich MD Work Phone: [phone]: 24-90-1699UHPDDSW Christine Goodrich MD Work Phone: [phone]: 91-07-0514Qqerldjaogzyr metabolic panelSlakia Goodrich MD Work Phone: [phone]: 22-66-7807JBLZKPC Christine Goodrich MD Work Phone: [phone]: 39-38-8867LCMAFOU Christine Goodrich MD Work Phone: [phone]: 92-95-6753OXDXLHA Christine Goodrich MD Work Phone: [phone]: 50-45-6647BVFZFCZ Christine Goodrich MD Work Phone: Start: 84-81-3076Ntlhebhpvliqj metabolic panelSusan Namo MD Work Phone: Start: 98-74-8085YTSBYKO Christine Goodrich MD Work Phone: Start: 04-39-8327YDLZOCL Christine Goodrich MD Work Phone: [phone]: 35-60-9156KFVAAZF Christine Goodrich MD Work Phone: [phone]: 17-32-2139LC ECHO COMPLETE W Lindsey Goodrich MD Work Phone: [phone]: 23-20-5269Cqkzu dip stick/tablet reagent auto microscopyYasmin Goodrich MD Work Phone: Start: 18-88-2361OEDVQTD Christine Goodrich MD Work Phone: Start: 11-28-2024 End: 18-35-4775Bbcvnjgnjooew metabolic Estrada Goodrich MD Work Phone: Start: 81-58-3117Bw retroperitoneal real time w/image completeGonzalo Rolle MD Work Phone: Start: 56-60-2590EITYNKG Christine Goodrich MD Work Phone: Start: 40-40-3463Smeiycjzog exam chest single view Dane Pretty MD Work Phone: Start: 47-76-5838Hexdd hip unilateral with pelvis 2-3 viewsInocencia Kearney PA-C Work Phone: Start: 04-56-5721Blqxaannjih up to 1 hour physician/qhp timeKirby Cueva MD Work Phone: Start: 11-27-2024 End: 02-14-7176Aluwqolmdlhzuzad hip partialKirby Cueva MD Work Phone: Start: 54-59-2092YEXLJMHREBEKA Goodrich MD Work Phone: Start: 11-27-2024 End: 86-24-9278THBYXBV Christine Goodrich MD Work Phone: Start: 24-06-2519Rcivz function panelGonzalo Rolle MD Work Phone: Start: 82-15-0239Tmfys depression screening assessment Maninder Byrd RNStart: 75-83-7411HXCUEMN GLUCOSEGonzalo Rolle MD Work Phone: Start: 89-01-7092MZPBNQW GLUCOSEGnozalo Rolle MD Work Phone: Start: 19-37-4129Qc lower extremity w/o contrast materialRuwhitley Green DO Work Phone: Start: 17-93-4303Kjkip dip stick/tablet reagent auto microscopyGonzalo Rolle MD Work Phone: Start: 27-89-1351KWBLE OXIMETRY, SPOTGonzalo Rolle MD Work Phone: Start: 20-15-5130Sfn routine ecg w/least 12 lds trcg only w/o i&rRussnilay Beltre Peter DO Work Phone: Start: 71-37-9006Xespqxja screenMARC NADERERComment on above:Performed By: #### TSC #### [facility] ([facility]) [address] [place] [address] VIRStart: 11-26-2024 End: 31-74-1771Entsc metabolic panel calcium totalRuwhitley Green DO Work Phone: Start: 13-43-6658Fcbmq typing serologic aboRussnilay Green DO Work Phone: Start: 05-13-8427Bsdqaixt screenMARC NADERERComment on above:Performed By: #### CBCA, 3016-3, LIVR, BMP #### [facility] ([id number]) [address] [place] [address], [place] [address] #### HA1C, 72625-5 #### [facility] ([id number]) [address] [place] [address], [address] [place], [place] [address]Kjums: 43-44-8846Hsoagyzu identified in Urine by CultureGeneric External Data ProviderStart: 69-16-4146Dkqws metabolic panel calcium totalAmador Abdalla MD Work Phone: Start: 60-72-3608OXU CBC WITH AUTO DIFFAmador Abdalla MD Work Phone: Start: 31-28-2596Syiuhdju identified in Urine by CultureGeneric External Data ProviderStart: 30-23-5991ZK Iliac/Fem w/LHCMD Amador Abdalla Work Phone: Start: 73-19-3553XA PCI HIDE PULLER 1st Vessel RCA DESMD Amador Abdalla Work Phone: Start: 75-39-8948Sfcphylfb of catheter into urinary bladderMD Amador Abdalla Work Phone: Start: 56-23-3981Vehkifqptpf injection iv push each new drugMD Amador Abdalla Work Phone: Start: 73-58-3416MC Amador Abdalla Work Phone: Plan of Treatment DateCare ActivityDetailAuthorStart: 12-08-8171Usivmpd ScreeningTobacco Screening [facility] SystemStart: 32-35-9449Cbojgnumwx ScreeningDepression Screening [facility] SystemStart: 22-80-4444Ivxnlsu ScreeningTobacco Screening [facility]MFederal [facility] SystemStart: 47-37-2612Zouucprrtjsaiy of varicella zoster vaccineZoster (Shingles) Vaccine (1 of 2)[facility] SystemComment on above:Postponed from 07/10/1997 (Patient Refused)Start: 46-51-9275QAaS,Tdap and Td Vaccines (1 - Tdap)DTaP,Tdap and Td Vaccines (1 - Tdap)Cleveland ClinicComment on above:Postponed from 07/10/1966 (Patient Refused)Start: 89-78-7807Vjjoa screening for proteinDiabetes: Urine Protein ScreeningNOMercy Hospital South, formerly St. Anthony's Medical CenterStart: 45-17-1999Quokq screening for proteinDiabetes: Urine Protein ScreeningNOMS HealthcareStart: 01-14-2025 End: 49-14-6449Bwsxftx encounter mokyboqps97/26/2025 1:00 PM EST Office Visit [facility] [address] [place] [address] Kirby Cueva MD [address] [place] [address] [facility]Tra[facility] and Adult ReconstructionStart: 12-10-2024 End: 87-28-5486Izdmsjo encounter procedureProMedica Physicians Orthopedics/Trauma and Adult ReconstructionStart: 12-10-2024 End: 05-81-5049nzubsubsevFfiHzpycz Physicians Orthoped[facility]/Trauma and Adult ReconstructionStart: 12-09-2024 End: 49-70-8888UK Pelvis and Hip - right 2 ViewsX-ray hip right 2-3 views with or without pelvis Imaging Routine S/P hip hemiarthroplasty Expected:12/09/2024, Expires: 12/09/2025[facility] Work Phone: Comment on above:Expected: 12/09/2024, Expires: 12/09/2025Start: 12-01-2024 End: 55-72-5383Ythllal encounter ovpcchidg00/13/2025 1:15 PM EDT Office Visit [facility] [address] [place] [address] Amador Abdalla MD [address] [place] [address] [facility] FMStart: 60-28-4405Xngixxmij vaccinationDAVIS HOSPITAL AND MEDICAL CENTER HealthcareStart: 73-78-4473Pjixqhjhxp A1c measurementDiabetes: Hemoglobin S9YUUMU Healthcare Start: 09-04-2024 End: 06-44-7827Vhnvvrh encounter procedureNOMS CI PODIATRYComment on above:Type 2 diabetes mellitus without complication, unspecified whether penitentiary insulin use (HCC) (Primary Dx); Pain due to onychomycosis of toenails of both feet; Venous insufficiencyStart: 08-28-2024 End: 64-17-5502Vauxyqjbbc A1c/Hemoglobin.total in BloodHemoglobin A1c Lab Routine Type 2 diabetes mellitus with hyperglycemia, without long-term current use of insulin (HCC) Expected: 08/28/2024 (Approximate), Expires: 08/28/2025[facility] Work Phone: Comment on above:Expected: 08/28/2024 (Approximate), Expires: 08/28/2025Start: 08-28-2024 End: 47-82-2375Uymnmje encounter procedureNOMS CWM FMComment on above:Arrived Start: 05-27-2024 End: 10-50-9080Xgcffhy encounter ylzklucyu95/08/2025 11:00 AM EDT Office Visit [facility] [address] [place] [phone] Amador Abdalla MD [address] [place] [address] [facility] CWM FMStart: 74-85-5139Lamwnvdfr vaccinationInfluenza VaccineOhioHealth Doctors Hospital SystemComment on above:Postponed from 10/21/2023 (Vaccine Not Available) Start: 04-24-2024 End: 22-36-1282Djadafi encounter pslekjjcw47/06/2025 10:00 AM EST Office Visit [facility] [address] [facility] [address] [place] [address] Turner Wilkins DPCarmen [address] [facility] [address] [place] [address] [facility] CI PODIATRYStart: 04-11-2024 End: 19-44-8805Esjtgym encounter dafybwcwa68/21/2025 11:00 AM EST Office Visit [facility] [address] [place] [address] Boyd Mario, VIGNESH [address] [facility] [address] [place] [address] [facility] FB ORTHOPAEDICSStart: 04-07-2024 End: 41-09-3357Emsnvmp encounter egsrlcbsy48/17/2025 2:30 PM EST Office Visit [facility] [address] [place] [address] Amador Abdalla MD [address] [place] [address] [facility] FMStart: 03-13-2024 End: 60-36-8026Nxsijju encounter kynxcytdd03/23/2025 1:30 PM EST Office Visit [facility] [address] [place] [phone] Jaun Alexis, CONE EXAMINER [address] [place], [place] [phone] [facility] FB ORTHOPAEDICSStart: 02-29-2024 End: 12-21-5485Wiwpw metabolic 1998 panel - Serum or PlasmaBasic metabolic panel Lab Routine Stage 3b chronic kidney disease (CKD) ([facility]) Expected: 02/28/19 25 (Approximate), Expires: 02/28/2025NOMS HealthcareComment on above:Expected: 02/29/2024 (Approximate), Expires: 02/28/2025Start: 02-29-2024 End: 25-85-3364IIZ W Auto Differential panel - BloodCBC and differential Lab Routine Encounter for long-term (current) use of medications Expected: 02/19 (Approximate), Expires: 02/28/2025NOMS HealthcareComment on above: Expected: 02/29/2024 (Approximate), Expires: 02/28/2025Start: 02-29-2024 End: 93-52-8148Mzjwqbkdrc A1c/Hemoglobin.total in BloodHemoglobin A1c Lab Routine Type 2 diabetes mellitus with hyperglycemia, without long-term current use of insulin (CMS/[facility]) Expected: 02/29/2024 (Approximate), Expires: 02/28/2025 NOM[facility] HealthcareComment on above:Expected: 02/29/2024 (Approximate), Expires: 02/28/2025Start: 02-29-2024 End: 76-69-2098Pzcrych function 2000 panel - Serum or PlasmaHepatic function panel Lab Routine Encounter for long-term (current) use of medications Expected: 02/29/2024 (Approximate), Expires: 02/28/2025NOWV HealthcareComment on above: Expected: 02/29/2024 (Approximate), Expires: 02/28/2025Start: 02-29-2024 End: 23-13-8151Nrfpi 1996 panel - Serum or PlasmaLipid panel Lab Routine Dyslipidemia ([facility]) Expected: 02/29/2024 (Approximate), Expires: 02/28/2025 [facility] HealthcareComment on above:Expected: 02/29/2024 (Approximate), Expires: 02/28/2025Start: 02-29-2024 End: 03-60-5191Eakcwycmwanm/Creatinine panel in random UrineMicroalbumin / creatinine, urine ratio Lab Routine Type 2 diabetes mellitus with hyperglycemia, without long-term current use of insulin ([facility]) Expected: 02/29/2024 (Approximate), Expires: 02/28/2025[facility] Healthcare Work Phone: Comment on above:Expected: 02/29/2024 (Approximate), Expires: 02/28/2025Start: 02-29-2024 End: 50-01-7889Qgyggcijxsl [Units/volume] in Serum or PlasmaTSH Lab Routine Class 1 obesity due to excess calories with serious comorbidity and body mass index(BMI) of 33.0 to 33.9 in adult Expected: 02/29/2024 (Approximate), Expires: 02/28/2025NOWV HealthcareComment on above:Expected: 02/29/2024 (Approximate), Expires: 02/28/2025Start: 02-29-2024 End: 08-68-7724WW Knee - left 1 or 2 ViewsXR knee 1 or 2 views left Imaging Routine Primary osteoarthritis of both knees Expected: 02/29/2024, Expires: 02/28/2025NOMS HealthcareComment on above:Expected: 02/29/2024, Expires: 02/28/2025Start: 02-29-2024 End: 39-32-3583SU Knee - right 1 or 2 ViewsXR knee 1 or 2 views right Imaging Routine Primary osteoarthritis of both knees Expected: 02/29/2024, Expires: 02/28/2025NOM[facility] HealthcareComment on above:Expected: 02/29/2024, Expires: 02/28/2025Start: 02-29-2024 End: 24-23-9051Iarozho encounter vozhaorph52/10/2025 11:30 AM EST Office Visit [facility] [address] [place] [address] Amador Abdalla MD [address] [place] [address] [facility] FMStart: 02-07-2024 End: 88-68-0935Tnpxxmh encounter procedureNOMS CI PODIATRYComment on above:Type 2 diabetes mellitus without complication, unspecified whether buttermaker continuous churn insulin use ([facility]) (Primary Dx); Pain due to onychomycosis of toenails of both feet; Venous insufficiencyStart: 05-11-9785Ofvypsfngh A1c measurementDiabetes: Hemoglobin M1EDLCY HealthcareStart: 01-23-2024 End: 54-05-5563Mynnpnb encounter zcedmeveh95/04/2024 10:00 AM EST Office Visit [facility] [address] [place] [address] Amador Abdalla MD [address] [place] [address] [facility] FMStart: 11-12-2023 End: 75-37-5706Mpkvrbp encounter ievqogibz29/23/2024 2:15 PM EDT Office Visit [facility] [address] [place] [address] Amador Abdalla MD [address] [place] [address] [facility] FMComment on above:ArrivedStart: 11-12-2023 End: 02-66-5665Oeydgts, urine, randomAlbumin, urine, random Lab Routine Type 2 diabetes mellitus with hyperglycemia, without long-term current use of insulin ([facility]) Expected: 11/12/2023 (Approximate), Expires: 11/11/2024[facility] Healthcare Work Phone: Comment on above:Expected: 11/12/2023 (Approximate), Expires: 11/11/2024Start: 11-12-2023 End: 22-21-8759Mvzda metabolic 1998 panel - Serum or PlasmaBasic metabolic panel Lab Routine Stage 3b chronic kidney disease (CKD) ([facility]) Expected: 11/12/19 24 (Approximate), Expires: 11/11/2024[facility] HealthcareComment on above:Expected: 11/12/2023 (Approximate), Expires: 11/11/2024Start: 11-12-2023 End: 72-08-3427WAT W Auto Differential panel - BloodCBC and differential Lab Routine Encounter for long-term (current) use of medications Expected: 10/21 (Approximate), Expires: 11/11/2024[facility] HealthcareComment on above: Expected: 11/12/2023 (Approximate), Expires: 11/11/2024Start: 11-12-2023 End: 90-11-3460Gvnrwmhgwa A1c/Hemoglobin.total in BloodHemoglobin A1c Lab Routine Type 2 diabetes mellitus with hyperglycemia, without long-term current use of insulin ([facility]) Expected: 11/12/2023 (Approximate), Expires: 11/11/2024 [facility] HealthcareComment on above:Expected: 11/12/2023 (Approximate), Expires: 11/11/2024Start: 11-12-2023 End: 75-77-5095Wsjqelp function 2000 panel - Serum or PlasmaHepatic function panel Lab Routine Encounter for long-term (current) use of medications Expected: 11/12/2023 (Approximate), Expires: 11/11/2024NOW[facility] HealthcareComment on above: Expected: 11/12/2023 (Approximate), Expires: 11/11/2024Start: 11-12-2023 End: 43-80-1334Ngoif 1996 panel - Serum or PlasmaLipid panel Lab Routine Dyslipidemia (CMS/HCC) Expected: 11/12/2023 (Approximate), Expires: 11/11/2024 [facility] HealthcareComment on above:Expected: 11/12/2023 (Approximate), Expires: 11/11/2024Start: 11-12-2023 End: 52-31-4494Tmqydpsespl [Units/volume] in Serum or PlasmaTSH Lab Routine Obesity (BMI 30-39.9) Expected: 11/12/2023 (Approximate), Expires: 11/11/2024 [facility] HealthcareComment on above:Expected: 11/12/2023 (Approximate), Expires: 11/11/2024Start: 77-66-1736Xuwxwgmqb vaccinationNOWV HealthcareStart: 09-06-2023 Urine screening for proteinDiabetes: Urine Protein ScreeningHedrick Medical Center Start: 26-72-5835Matee screening for proteinDiabetes: Urine Protein Screening [facility] HealthcareStart: 81-53-3527Dtapk chest X-rayXR chest 1V [facility] Centertart: 98-53-1354Vcfmhglpsvho Vaccine: 65+ Years (2 of 2 - PCV)Pneumococcal Vaccine: 65+ Years (2 of 2 - PCV)[facility] HealthcareStart: 71-02-7078Twwt Risk ScreeningFall Risk ScreeningSt. Charles Hospital Health SystemStart: 76-23-9030Wleuhkttpbvd vaccinationPneumococcal Vaccine(s) (65+ yrs) (1 - PCV) [facility]Start: 05-78-6030Gmrkgrzop for osteoporosisBone Densitometry [facility]HealthStart: 24-68-5092Jsnniizefsbyrm of varicella zoster vaccineZoster (Shingles) Vaccine (1 of 2)[facility] SystemStart: 90-29-7167Thivszbzzzx of occult blood in single stool specimenFITMetroHealthStart: 95-34-4591Ieetcvjal for malignant neoplasm of breastMammographyMetroHealthStart: 07-10-1997 Screening for malignant neoplasm of colonCRC ScreeningMetroHealthStart: 21-75-7497Szbzutsv (RZV) Vaccine (1 of 2)Shingles (RZV) Vaccine (1 of 2) [facility]HealthStart: 94-10-9636Xvljiulkfyk [Mass/volume] in Serum or Plasma CholesterolMetroHealthStart: 53-63-8090VBaA,Tdap and Td Vaccines (1 - Tdap) DTaP,Tdap and Td Vaccines (1 - Tdap)[facility]Minf[facility] Health SystemStart: 07-10-1966 Pneumococcal Vaccine: 65+ Years (1 of 2 - PCV)Pneumococcal Vaccine: 65+ Years (1 of 2 - PCV)[facility] HealthcareStart: 73-28-9703Wzhzqblli C screeningHepatitis C AntibodyMetroHealthStart: 79-11-9908Twtvsmc + diphtheria + acellular pertussis vaccine (product)Tdap BoosterMetroHealthStart: 39-86-9122Qztobexdzu Screening Depression ScreeningProPeoples Hospital SystemStart: 97-49-0955Yhswykb Screening Tobacco ScreeningProPeoples Hospital SystemStart: 29-71-2230Qeszhywr screening Diabetes: Retinopathy ScreeningDA[facility] HealthcareStart: 04-99-9571CCUBX-19 Vaccine (1)COVID-19 Vaccine (1)[facility]HealthStart: 58-66-6123Hdoffnqtpj A1c measurement Diabetes: Hemoglobin L2RHJFG HealthcareStart: 05-22-1948Medicare Annual Wellness (AWV)Medicare Annual Wellness (AWV)[facility] HealthcareStart: 43-24-7712Hwgitmklu for malignant neoplasm of colonColonoscopyMetroHealthBacteria identified in Urine by CultureURINE CULTURE, ROUTINE Lab Routine 04/02/2024 3:22 PM [facility] [place] metabolic 1998 panel - Serum or PlasmaBasic metabolic panel Lab Routine 03/19/2024 9:14 AM [facility] Work Phone: End: 23-35-6305Ijslfdii Pathology ReviewProKettering Health HamiltonFingerstick glucose checksProMizell Memorial Hospital Work Phone: End: 67-00-5412Zscbiwstkfpxnhtesvszy for Therapy MonitoringCleveland ClinicImmunoelectrophoresis for Therapy MonitoringCleveland ClinicPatient EducationCoronary Angioplasty (DC) Liraglutide Angina (DC) Drug Eluting Stents [facility] Work Phone: Patient referralCleveland Clinic Mer[facility] Work Phone: End: 78-23-6923Yzktbrk electrophoresis, serumProMedica Work Phone: Protein electrophoresis, serumHenry County Hospitalca Health System Immunizations Immunization DateImmunizationNotesCare LgetagdjJwttxyij01-30-5427rxgyptbfj virus vaccine, unspecified formulationAmador Abdalla MD Work Phone: [facility] CenterYaawlrubxy72-87-8845eeipacojm virus vaccine, unspecified formulationAmador Abdalla MD Work Phone: [facility] Payers DatePayer CategoryPayerPolicy [id number] HMO [id number] [id number] 2022MedicareANTHEM MEDICARE ADVANTAGE ANTHEM MEDICARE ADVANTAGE [id number] 2021-Present [address] [place] [id number] 2022Medicare (Managed Care)ANTHEM MEDICARE ADVANTAGE [id number] [id number] [id number] 1960Medicaid [id number] [id number] [id number] 2.840.1.309527.3.57[id number] 2.840.1.804647.3.57[id number] 2.840.1.717920.3.579.2.49894-55-9405Ypnoocv8046137 2.840.1.407563.3.57[id number] 2.840.1.672022.3.579.[id number] 2.840.1.962849.3.579.2.29271-50-0381Lefpxur0789076 2.840.1.318472.3.57[id number] 2.840.1.169531.3.579.2.19427-87-1739Lihazms1483905 2.840.1.828144.3.579.2.32223-48-7944Vcyjpjp7483904 2.840.1.496558.3.579.2.56317-85-9960Bzfsqow6500837 2.16840.1.183003.3.57[id number] 2.840.1.735861.3.579.2.84760-53-8347Jhbwmof9333220 2.16840.1.210008.3.579.2.80378-55-9692Nhrxyue4414939 2.16840.1.015026.3.579.2.71284-38-0798Dxtxggb9773267 2.16840.1.765375.3.57[id number] 2.16840.1.873429.3.57[id number] 2.0.1.800222.3.579.2.8[id number] 2.0.1.907206.3.57[id number] 2.0.1.125301.3.579.2.063213-83-3845Jwwvnjl1244621 2.840.1.544304.3.579.2.717927-95-8845Uqpggsk4903744 2.840.1.615266.3.579.2.238925-62-7300Onymswo1995866 2.840.1.768177.3.579.2.461561-34-0782Wohpvjj8806513 2.840.1.216005.3.579.2.46[id number] 2.840.1.926102.3.579.2.21[id number] 2.840.1.466560.3.579.[id number] 2.840.1.697260.3.579.[id number] 2.840.1.035178.3.579.[id number] 2..840.1.207965.3.579.2.316[id number] 2..840.1.170738.3.579.2.570975-06-8769Ahmhsfl712582101 2.840.1.490634.3.57[id number] 2.840.1.461[id number] 2.840.1.233023.3.579.2.531 Social History DateTypeDetailFacilityTobacco smoking status NHISTobacco smoking consumption unknownKettering Memorial Hospital Work Phone: Start: 82-90-9352Yfa Assigned At BirthNot on file [facility]Start: 06-24-2021 End: 21-32-1779Cnnysml smoking status NHISNever smoked tobacco (finding) [facility]art: 19-79-6905Gfa Assigned At BirthFemale [facility]art: 10-19-2022 End: 91-78-4293Fvonmca use and exposureSmokeless tobacco non-userNOMS Healthcare Start: 11-12-2023 End: 47-04-8160Ggxxysyvk beverage intakeLifetime non-drinker (finding)[facility] HealthcareStart: 11-12-2023 End: 90-29-3928Oohmaba of Social functionNOMS HealthcareStart: 11-12-2023 End: 55-33-2963Gmpvyaz use panelNOMS HealthcareHow often do you need to have someone help you when you read instructions, pamphlets, or other written material from your doctor or pharmacy [SILS]SometimesNOMS HealthcareDo you belong to any clubs or organizations such as bahai groups, unions, fraternal or athletic groups, or [...] money to buy more. Never trueNOMS HealthcareStart: 56-96-1430RdmMskrxc (finding)[facility] SystemHow often do you need to have someone help you when you read instructions, pamphlets, or other written material from your doctor or pharmacy [SILS] SometimesNOMS HealthcareStart: 11-30-2024 End: 94-04-7600Opncrjhil beverage intakeEx-drinker (finding)[facility] SystemNEGATED: Highlighted rowStart: NINFHistory of tobacco usePassive smoker [facility] Medical Equipment Procedure CodeEquipment CodeEquipment Original TextEquipment IdentifierDates1 each by Other route Daily Use as [id number]: each Daily [id number]: 54-82-1312Mqe to inject 1-4 times daily as directed.[id number] Start: 06-18-2024 End: 16-74-4763Qxw to inject 1-4 times daily as directed.[id number]: 09-03-2024 End: 09-03-2025()[id number]()[id number](10)[id number](21)N/A, 797888_[facility] Start: 11-27-2024()[id number](17)[id number](10)[id number](21)N/A, 797893_imp FDA Start: 11-27-2024()[id number](44)[id number](46)[id number](21)N/A, 797894_imp FDA Start: 11-27-2024 Goals DatePatient GoalDesired Activity/StatePersonal health goalComment on above: Evaluation of progress towards goal: plan to go to alf facility for rehab needs Functional Status KnwzRkwpawngccUlsjiiBgphqmcp64-84-6894Xazadbhfmm statusPatient at Baseline [facility] Work Phone: [facility] Mental Status YjooBvbtwpywkgLztnjgFfcfesfo87-80-9035Frueslqdv functionCognitive Status Patient is Progressing Toward BaselineKettering Memorial Hospital Work Phone: [facility] Clinical Notes 06-24-2021 to 12-10-2024 Note Date & IzpwPxduSxtowdsd91-38-9116 History of Present illness Narrative* Kirby Cueva [...] 12/29/24 - Physical Therapy: Continue therapy at alf facility - [facility]: Recommend evaluation in [...] concern. Kirby Cueva MD documented in this encounterCleveland Clinic10-13-2025 Miscellaneous Notes* Discharge Planning Note - LOVELY Ulloa - 12/01/2024 1:34 PM EDT DC plan SNF: [facility] accepting pt. We have insurance approval. Pt [...] Discharge Disposition SNF SN[facility] Name [facility] Accepted? Yes PreCertification Authorization Number [id number] PreCertification Expiration Date 12/04/24 PreCertification Expiration Time 6208 Does the patient need discharge transportation arranged? Yes Transportation Arranged Ambulance Patient choice offered Yes List Provided Yes [facility] List Provided Snf Facility Respiratory Indicator Does the patient currently [...] Description: INTERVENTIONS: 1. Encourage patient or legal computer help desk representative to report early pain and ask [...] per policy 9. Teach patient or legal computer help desk representative interventions for comforting Outcome: Progressing Note: [...] at the bedside 7. Instruct patient/ patient computer help desk representative about use of safety devices 8. Include patient/ patient computer help desk representative in decisions related to safety Outcome: [...] hygiene technique. 7. Identify and instruct patient/patient computer help desk representative in use of appropriate isolation precautionsfor identified infection/symptoms. 8. Provide and discuss with patient/patient computer help desk representative on educational MDRO sheet. 9. Encourage and monitor nutritional status daily and consult assembler flexible leads if indicated. 10. Implement neutropenic guidelines as needed. Outcome: Progressing Note: Evaluation of progress towards goal: PO cefuroxime continued, afebrile Problem: Knowledge Deficit Goal: Patient/patient computer help desk representative demonstrates understanding of disease process, treatment [...] be free from fall Description: Interventions: 1. [place] to environment 2. Hourly rounds addressing the [...] non-skid footwear 11. Teach patient and patient computer help desk representative to maintain environment for safety and [...] (cane, walker) within reach 19. Request patient computer help desk representative bring adaptive equipment/mobility aids from home or obtain and provide as needed 20. Consult pharmacy regarding effects of med's affecting mobility, cognition, and alternatives 21. Obtain physician order for PT if risk factors associated with mobility are present 22. Obtain physician order for OT as appropriate 23. Utilize diversional activities 24. Educate patient and patient computer help desk representative how to maintain a safe environment during visitationtimes (notify nurse prior to leaving bedside) 25. Consider appropriateness of medical or non-medical leader 26. Set up voiding schedule as appropriate [...] supplement as ordered 13. Collaborate with clinical assembler flexible leads 14. Include patient/ patient's computer help desk representative in decisions related to nutrition Outcome: [...] as appropriate 6. Collaborate with case management/social work professor for discharge needs Outcome: Completed Note: Evaluation of progress towards goal: no spiritual needs * PT/OT/CARBON CAPTURE POWER PLANT OPERATOR - SARAH Bynum/Alexsander - 12/01/2024 11:03 AM [...] Equipment: gait belt, kim stedy, external cath Telemetry/Electrocardiograph Operator: No Oxygen Used: 2L Other: fall risk [...] Patient will perform bed mobility with Modified [place] Dates: Start: 11/28/24 Expected End: 12/26/24 Description: Goal Description: Disciplines: OT Outcomes Date/Time User Outcome 12/01/24 1102 TIFFANY Bynum Not Progressing 11/29/24 1605 SARAH Lopez/Alexsander Progressing 11/29/24 1042 SARAH Lopez/Alexsander Progressing Goal Note filed on 12/01/24 1102 by TIFFANY Bynum Evaluation of progress towards goal: Problem: Dressing LB Dates: Start: 11/28/24 Disciplines: OT Goal: Patient will perform dressing LB with Modified [place] Dates: Start: 11/28/24 Expected End: 12/26/24 Description: [...] Note filed on 12/01/24 1102 by TIFFANY Bynmu Evaluation of progress towards goal: Problem: Toilet Transfers Dates: Start: 11/28/24 Disciplines: OT Goal: Patient will perform toilet transfers with Modified [place] Dates: Start: 11/28/24 Expected End: 12/26/24 Description: Goal Description: Disciplines: OT Problem: Toileting Dates: Start: 11/28/24 Disciplines: OT Goal: Patient will perform toileting with Modified [place] Dates: Start: 11/28/24 Expected End: 12/26/24 Description: Goal Description: Disciplines: OT Problem: Transfers Dates: Start: 11/28/24 Disciplines: OT Goal: Patient will perform transfers with Modified [place] Dates: Start: 11/28/24 Expected End: 12/26/24 Description: Goal Description: Disciplines: OT Outcomes Date/Time User Outcome 12/01/24 1102 SARAH Bynum/Alexsander Progressing 11/29/24 1605 SARAH Lopez/Alexsander Progressing 11/29/24 1042 TIFFANY Lopez Progressing Goal Note filed on 12/01/24 1102 by TIFFANY Bynum Evaluation of progress towards goal: Occupational Therapy Care Plan (Resolved) There are no resolved problems. Principal Problem: Closed fracture of right hip, initial encounter ([facility]) Cosigned by PROSPER Mckinley/Alexsander at 12/01/2024 11:42 AM EDT Associated attestation - Kim Washington OTR/L - 12/01/2024 11:42 AM EDT I have reviewed and agree with this note and education documentation for this visit. * Discharge Planning Note - GEORGE TorresP - 12/01/2024 10:43 AM EDT DISCHARGE PLANNING NOTE BLS transport confirmed via [facility] going to [facility] on 12/01/2024 at 1400 * PT/OT/CARBON CAPTURE POWER PLANT OPERATOR - Ely Barrios, BLOOD BANK CALENDAR CONTROL CLERK - 12/01/2024 8:42 AM EDT Physical Therapy [...] mobility pass Equipment: gait belt, kim stedy Telemetry/Electrocardiograph Operator: No Oxygen Used: 2 liters oxygen Other: [...] Ibarra PTA Not Progressing 11/29/24 1714 Nellie bIarra PTA Progressing 11/29/24 1404 Nellie Ibarra PTA Progressing Goal Note filed on 11/30/24 165 by Nellie Ibarra PTA Evaluation of progress towards goal: Problem: Strength Dates: Start: 11/28/24 Disciplines: PT Goal: Improve strength Dates: Start: 11/28/24 Expected End: 12/12/24 Description: Of extremity/ location:Complete 20 reps BLE ex's To facilitate: Disciplines: PT Outcomes Date/Time User Outcome 12/01/24 1313 Ely Barrios, BLOOD BANK CALENDAR CONTROL CLERK Progressing 11/30/24 1654 Nellie Ibarra PTA Not Progressing 11/29/24 1714 Nellie Ibarra, BLOOD BANK CALENDAR CONTROL CLERK Progressing 11/29/24 1404 Nellie Ibarra PTA Progressing Goal Note filed on 11/30/241653 by Nellie Ibarra PTA Evaluation of progress towards goal: Problem: Transfers Dates: Start: 11/28/24 Disciplines: PT Goal: Patient will perform transfers with Minimum Assist Dates: Start: 11/28/24 Expected End: 12/12/24 Description: Goal Description: Disciplines: PT Outcomes Date/Time User Outcome 12/01/24 1313 Ely Barrios, BLOOD BANK CALENDAR CONTROL CLERK Progressing 11/30/24 1654 Nellie Ibarra BLOOD BANK CALENDAR CONTROL CLERK Not Progressing 11/29/24 1714 Nellie Ibarra, BLOOD BANK CALENDAR CONTROL CLERK Progressing 11/29/24 1404 Nellie Ibarra PTA Progressing Goal Note filed on 11/30/241653 by Nellie Ibarra PTA Evaluation of progress towards goal: Physical Therapy Care Plan (Resolved) There are no resolved problems. Principal Problem: Closed fracture of right hip, initial encounter ([facility]) Cosigned by Julia Tyson, PT at 12/01/2024 2:43 PM EDT Associated attestation - Julia yTson, PT - 12/01/2024 2:43 PM EDT I have reviewed and agree with this note and education documentation for this visit. * Plan of Care - Jeniffer Wade RN - 12/01/2024 12:48 AM EDT Problem: Pain Goal: Patient goal is pain score less than 4, able to rest, and participant in treatment plan as appropriate Description: INTERVENTIONS: 1. Encourage patient or legal computer help desk representative to report early pain and ask [...] per policy 9. Teach patient or legal computer help desk representative interventions for comforting Outcome: Progressing Note: Evaluation of progress towards goal: Patient resting in bed comfortably. Patient states PRN pain medication working to control her pain as directed. * PT/OT/CARBON CAPTURE POWER PLANT OPERATOR - TIFFANY Forman - 11/30/2024 5:02 PM [...] belt, RW Weight Bearing Status: WBAT RLE Telemetry/Electrocardiograph Operator: No Oxygen Used: 2L Other: fall risk [...] (x2 with HOB elevated, maxcues for sequencing, [place] assist for hand placement, max A for trunk righting and LE transition to EOB.) Sit to Supine: (pt remained in recliner at end of session.) Other: pt requires much increased time/effort with max A x 2 for supine to sit this date requiring encouragement to participate as pt would prefer screenplay writer assist. pt retired to recliner at [...] Patient will perform bed mobility with Modified [place] Dates: Start: 11/28/24 Expected End: 12/26/24 Description: Goal Description: Disciplines: OT Outcomes Date/Time User Outcome 11/29/24 1605 SARAH Lopez/Alexsander Progressing 11/29/24 1042 SARAH Lopez/Alexsander Progressing Problem: Dressing LB Dates: Start: 11/28/24 Disciplines: OT Goal: Patient will perform dressing LB with Modified [place] Dates: Start: 11/28/24 Expected End: 12/26/24 Description: [...] Outcomes Date/Time User Outcome 11/29/24 1605 DONNA LpoezA/L Progressing 11/29/24 1042 Jodie Brown SMITH/L Progressing [...] Patient will perform toilet transfers with Modified [place] Dates: Start: 11/28/24 Expected End: 12/26/24 Description: Goal Description: Disciplines: OT Problem: Toileting Dates: Start: 11/28/24 Disciplines: OT Goal: Patient will perform toileting with Modified [place] Dates: Start: 11/28/24 Expected End: 12/26/24 Description: Goal Description: Disciplines: OT Problem: Transfers Dates: Start: 11/28/24 Disciplines: OT Goal: Patient will perform transfers with Modified [place] Dates: Start: 11/28/24 Expected End: 12/26/24 Description: Goal Description: Disciplines: OT Outcomes Date/Time User Outcome 11/29/24 1605 TIFFANY Lopez Progressing 11/29/24 1042 TIFFANY Lopez Progressing Occupational Therapy Care Plan (Resolved) There are no resolved problems. Principal Problem: Closed fracture of right hip, initial encounter ([facility]) Cosigned by PROSPER Mckinley/Alexsander at 12/01/2024 7:23 AM EDT Associated attestation - Kim Washington OTR/L - 12/01/2024 7:23 AM EDT I have reviewed and agree with this note and education documentation for this visit. * PT/OT/CARBON CAPTURE POWER PLANT OPERATOR - Nellie Ibarra PTA - 11/30/2024 1:58 [...] belt, RW Weight Bearing Status: WBAT RLE Telemetry/Electrocardiograph Operator: No Oxygen Used: 2L Other: fall risk [...] encouragement to initiate movements rather than allow screenplay writer to perform them for her. Pt [...] Weightbearing x (L<>R sitting- mirror technique with screenplay writer sitting in front of pt) Seated [...] had difficulty correcting balance and posture with screenplay writer's verbal cueing- required tactile and visual [...] PTA Not Progressing 11/29/24 1714 Nellie Ibarra BLOOD BANK CALENDAR CONTROL CLERK Progressing 11/29/24 1404 Nellie Ibarra PTA Progressing [...] Closed fracture of right hip, initial encounter ([facility]) Cosigned by Julia Tyson PT at 12/01/2024 7:50 AM EDT Associated Julia Sweet PT - 12/01/2024 7:50 AM EDT I have reviewed and agree with this note and education documentation for this visit. * PT/OT/CARBON CAPTURE POWER PLANT OPERATOR - TIFFANY Forman - 11/30/2024 10:45 AM EDT Occupational Therapy OT Type of Visit: Medical deferral Reason For Medical Deferral: Vitals outside safe parameters (ELEVATED BP PER RN) Cosigned by DOMENICA Mckinley at 12/01/2024 7:23 AM EDT Associated Kim Oro OTR/L - 12/01/2024 7:23 AM EDT I have reviewed and agree with this note and education documentation for this visit. * PT/OT/CARBON CAPTURE POWER PLANT OPERATOR - Nellie Ibarra PTA - 11/30/2024 9:20 [...] Description: INTERVENTIONS: 1. Encourage patient or legal computer help desk representative to report early pain and ask [...] per policy 9. Teach patient or legal computer help desk representative interventions for comforting Outcome: Progressing Note: [...] at the bedside 7. Instruct patient/ patient computer help desk representative about use of safety devices 8. Include patient/ patient computer help desk representative in decisions related to safety Outcome: [...] Description: INTERVENTIONS: 1. Encourage patient or legal computer help desk representative to report early pain and ask [...] per policy 9. Teach patient or legal computer help desk representative interventions for comforting 11/30/2024 0907 by [...] at the bedside 7. Instruct patient/ patient computer help desk representative about use of safety devices 8. Include patient/ patient computer help desk representative in decisions related to safety 11/30/2024 [...] Description: INTERVENTIONS: 1. Encourage patient or legal computer help desk representative to report early pain and ask [...] per policy 9. Teach patient or legal computer help desk representative interventions for comforting Outcome: Progressing Note: Evaluation of progress towards goal: Patient states pain is well controlled with PRN pain medication. Patient does not complain of any pain at this time. * PT/OT/CARBON CAPTURE POWER PLANT OPERATOR - SARAH Lopez/Alexsander Broussard 11/29/2024 4:31 PM [...] belt, RW Weight Bearing Status: WBAT RLE Telemetry/Electrocardiograph Operator: No Oxygen Used: room air (applied 2L [...] difficulty coming to standing d/t poor technique. [employer]ct Systems Test Engineer demonstrated rocking technique for momentum with good [...] Patient will perform bed mobility with Modified [place] Dates: Start: 11/28/24 Expected End: 12/26/24 Description: Goal Description: Disciplines: OT Outcomes Date/Time User Outcome 11/29/24 1605 Jodie Brown SMITH/L Progressing 11/29/24 1042 DONNA LopezA/Alexsander Progressing Problem: Dressing LB Dates: Start: 11/28/24 Disciplines: OT Goal: Patient will perform dressing LB with Modified [place] Dates: Start: 11/28/24 Expected End: 12/26/24 Description: [...] Patient will perform toilet transfers with Modified [place] Dates: Start: 11/28/24 Expected End: 12/26/24 Description: Goal Description: Disciplines: OT Problem: Toileting Dates: Start: 11/28/24 Disciplines: OT Goal: Patient will perform toileting with Modified [place] Dates: Start: 11/28/24 Expected End: 12/26/24 Description: Goal Description: Disciplines: OT Problem: Transfers Dates: Start: 11/28/24 Disciplines: OT Goal: Patient will perform transfers with Modified [place] Dates: Start: 11/28/24 Expected End: 12/26/24 Description: Goal Description: Disciplines: OT Outcomes Date/Time User Outcome 11/29/24 1605 DONNA LopezA/Alexsander Progressing 11/29/24 1042 DONNA LopezA/Alexsander Progressing Occupational Therapy Care Plan (Resolved) There are no resolved problems. Principal Problem: Closed fracture of right hip, initial encounter ([facility]) Cosigned by MEL Thomas at 11/30/2024 6:53 AM EDT Associated attestation - Sharon Napier OT/L - 11/30/2024 6:53 AM EDT I have reviewed and agree with this note and education documentation for this visit. * PT/OT/CARBON CAPTURE POWER PLANT OPERATOR - Nellie Ibarra PTA - 11/29/2024 2:17 [...] 6 Clicks: Basic Mobility Raw Score: 12 [facility] G Code Modifier: CL Therapy Plan PT [...] catheter Weight Bearing Status: WBAT R LE Telemetry/Electrocardiograph Operator: No Oxygen Used: room air (inc to [...] Closed fracture of right hip, initial encounter ([facility]) Cosigned by Connor Carreon PT at 11/30/2024 6:50 AM EDT Associated attestation - Connor Carreon, PT - 11/30/2024 6:50 AM EDT I have reviewed and agree with this note and education documentation for this visit. 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 Weight Bearing Status: WBAT RLE Telemetry/Electrocardiograph Operator: No Oxygen Used: 2L Other: fall risk [...] Patient will perform bed mobility with Modified [place] Dates: Start: 11/28/24 Expected End: 12/26/24 Description: Goal Description: Disciplines: OT Outcomes Date/Time User Outcome 11/29/24 Saskia SARAH Lopez/Alexsander Progressing Problem: Dressing LB Dates: Start: 11/28/24 Disciplines: OT Goal: Patient will perform dressing LB with Modified [place] Dates: Start: 11/28/24 Expected End: 12/26/24 Description: [...] Patient will perform toilet transfers with Modified [place] Dates: Start: 11/28/24 Expected End: 12/26/24 Description: Goal Description: Disciplines: OT Problem: Toileting Dates: Start: 11/28/24 Disciplines: OT Goal: Patient will perform toileting with Modified [place] Dates: Start: 11/28/24 Expected End: 12/26/24 Description: Goal Description: Disciplines: OT Problem: Transfers Dates: Start: 11/28/24 Disciplines: OT Goal: Patient will perform transfers with Modified [place] Dates: Start: 11/28/24 Expected End: 12/26/24 Description: Goal Description: Disciplines: OT Outcomes Date/Time User Outcome 11/29/24 104Riccardo TIFFANY Lopez Progressing Occupational Therapy Care Plan (Resolved) There are no resolved problems. Principal Problem: Closed fracture of right hip, initial encounter ([facility]) Cosigned by Sharon Napier OT/L at 11/29/2024 11:47 AM EDT Associated attestation - Sharon Napier OT/L - 11/29/2024 11:47 AM EDT I have reviewed and agree with this note and education documentation for this visit. * PT/OT/CARBON CAPTURE POWER PLANT OPERATOR - Nellie Ibarra PTA - 11/29/2024 8:48 [...] catheter Weight Bearing Status: WBAT R LE Telemetry/Electrocardiograph Operator: No Oxygen Used: 2L Other: Fall risk [...] Closed fracture of right hip, initial encounter ([facility]) Cosigned by Johana Flores PT at [...] Description: INTERVENTIONS: 1. Encourage patient or legal computer help desk representative to report early pain and ask [...] per policy 9. Teach patient or legal computer help desk representative interventions for comforting Outcome: Progressing Note: [...] at the bedside 7. Instruct patient/ patient computer help desk representative about use of safety devices 8. Include patient/ patient computer help desk representative in decisions related to safety Outcome: [...] Description: INTERVENTIONS: 1. Encourage patient or legal computer help desk representative to report early pain and ask [...] per policy 9. Teach patient or legal computer help desk representative interventions for comforting Outcome: Progressing Note: [...] at the bedside 7. Instruct patient/ patient computer help desk representative about use of safety devices 8. Include patient/ patient computer help desk representative in decisions related to safety Outcome: [...] hygiene technique. 7. Identify and instruct patient/patient computer help desk representative in use of appropriate isolation precautionsfor identified infection/symptoms. 8. Provide and discuss with patient/patient computer help desk representative on educational MDRO sheet. 9. Encourage and monitor nutritional status daily and consult assembler flexible leads if indicated. 10. Implement neutropenic guidelines as needed. Outcome: Progressing Note: Evaluation of progress towards goal: monitor for signs and symptoms of infection Problem: Knowledge Deficit Goal: Patient/patient computer help desk representative demonstrates understanding of disease process, treatment [...] be free from fall Description: Interventions: 1. [place] to environment 2. Hourly rounds addressing the [...] non-skid footwear 11. Teach patient and patient computer help desk representative to maintain environment for safety and [...] (cane, walker) within reach 19. Request patient computer help desk representative bring adaptive equipment/mobility aids from home or obtain and provide as needed 20. Consult pharmacy regarding effects of med's affecting mobility, cognition, and alternatives 21. Obtain physician order for PT if risk factors associated with mobility are present 22. Obtain physician order for OT as appropriate 23. Utilize diversional activities 24. Educate patient and patient computer help desk representative how to maintain a safe environment during visitationtimes (notify nurse prior to leaving bedside) 25. Consider appropriateness of medical or non-medical leader 26. Set up voiding schedule as appropriate [...] Auth approved for admission to : [facility] (P# ; F# ) Approval # [id number] Valid for Dates: 11/28/2024 - 12/04/2024 * Discharge Planning Note - Celi Verdin - 11/28/2024 3:29 PM EDT DISCHARGE PLANNING NOTE Prior auth submitted to: [employer] Via: Johanne On behalf of : [facility] (P# ; F# ) We will provide reference number when available. * PT/OT/CARBON CAPTURE POWER PLANT OPERATOR - Lisa Gonzalez, PT - 11/28/2024 2:47 [...] hospitalization. Pt resides in assisted living at [facility]. She was using her walker and fell. She presented to [place] ED with Rt hip pain. Imaging showed Rt subcapital femoral neck fx. Pt was then transferred to [facility] for higher level of care. On 11/27/24 she underwent Rt hip hemiarthroplasty. She is WBAT RLE. Chief Complaint Patient presents with Fall Past Medical History: Diagnosis Date CHF (congestive heart failure) ([facility]) Chronic kidney disease Coronary artery disease Dental disease Diabetes mellitus type 2, controlled ([facility]) Dizziness GERD (gastroesophageal reflux disease) Hyperlipidemia Hypertension Myocardial infarction ([facility]) Prolonged emergence from general anesthesia Past Surgical History: Procedure Laterality Date CHOLECYSTECTOMY CORONARY STENT PLACEMENT ESOPHAGOSCOPY HEMIARTHROPLASTY HIP Right 11/27/2024 Performed by Kirby Cueva MD at [facility] LAPAROSCOPIC HYSTERECTOMY OOPHORECTOMY OVARIAN CYST SURGERY [...] belt, rw Weight Bearing Status: WBAT RLE Telemetry/Electrocardiograph Operator: No Oxygen Used: 3L NC Other: fall [...] Closed fracture of right hip, initial encounter ([facility]) * Discharge Planning Note - LOVELY Ulloa - 11/28/2024 2:21 PM EDT DC plan SNF: [facility] accepted pt. Tasked to [facility] to start pre-cert. BLS tx cert in [...] Discharge Disposition SNF SNF Name [facility] SNF Accepted? Yes Does the patient need discharge transportation arranged? Yes Transportation Arranged Ambulance Patient choice offered Yes List Provided Yes CarePort List Provided Snf Facility Respiratory Indicator Does the patient currently have home respiratory equipment? No Will the patient need home respiratory equipment upon discharge? No, it is expected that patient will NOT discharge home with respiratory DME needs * PT/OT/CARBON CAPTURE POWER PLANT OPERATOR - Halle Lea OT/L - 11/28/2024 2:21 [...] fell at her [facility] She presented to [place] ED with Rt hip pain. Imaging showed Rt subcapital femoral neck fx. Pt was then transferred to [facility] for higher level of care. On 11/27/24 she underwent Rt hip hemiarthroplasty. She is WBAT RLE. Patient lives in apartment in [facility], uses 4ww at baseline, has own [...] and be able to safely return to [facility]. . Past Surgical History: Procedure Laterality Date CHOLECYSTECTOMY CORONARY STENT PLACEMENT ESOPHAGOSCOPY HEMIARTHROPLASTY HIP Right 11/27/2024 Performed by Kirby Cueva MD at [facility] LAPAROSCOPIC HYSTERECTOMY OOPHORECTOMY OVARIAN CYST SURGERY . Past Medical History: Diagnosis Date CHF (congestive heart failure) ([facility]) Chronic kidney disease Coronary artery disease Dental disease Diabetes mellitus type 2, controlled ([facility]) Dizziness GERD (gastroesophageal reflux disease) Hyperlipidemia Hypertension Myocardial infarction ([facility]) Prolonged emergence from [...] Other : Patient lives in apartment in [facility], uses 4ww at baseline, has own accessible bathroom with grab bars and shower chair to walk in shower, gets assist for meds and showers, was ind with other ADLs, local dtr assists as needed for shopping/transportation. Prior Function Lives With: Other (Comment) ([facility], lives alone in her own apartment) Receives Help From: (staff assit with meds and shower and as needed for taking out trash if too heavy for patient to put on her rollator. Dtr, Mandy assists with shopping and transportation.) Level of Mobility: Needs assistance with ADLs or functional transfers or gait Homemaking Assistance: Needs assistance Other: Patient lives in apartment in [facility], uses 4ww at baseline, has own [...] Patient will perform bed mobility with Modified [place] Dates: Start: 11/28/24 Expected End: 12/26/24 Description: Goal Description: Disciplines: OT Problem: Dressing LB Dates: Start: 11/28/24 Disciplines: OT Goal: Patient will perform dressing LB with Modified [place] Dates: Start: 11/28/24 Expected End: 12/26/24 Description: [...] Patient will perform toilet transfers with Modified [place] Dates: Start: 11/28/24 Expected End: 12/26/24 Description: Goal Description: Disciplines: OT Problem: Toileting Dates: Start: 11/28/24 Disciplines: OT Goal: Patient will perform toileting with Modified [place] Dates: Start: 11/28/24 Expected End: 12/26/24 Description: Goal Description: Disciplines: OT Problem: Transfers Dates: Start: 11/28/24 Disciplines: OT Goal: Patient will perform transfers with Modified [place] Dates: Start: 11/28/24 Expected End: 12/26/24 Description: Goal Description: Disciplines: OT Occupational Therapy Care Plan (Resolved) There are no resolved problems. Principal Problem: Closed fracture of right hip, initial encounter ([facility]) * PT/OT/CARBON CAPTURE POWER PLANT OPERATOR - Lisa Gonzalez, PT - 11/28/2024 10:43 AM EDT Physical Therapy PT Type of Visit: Medical deferral Reason For Medical Deferral: Off unit (2nd attempt to see pt she is still in echo. Will try back asable.) * PT/OT/CARBON CAPTURE POWER PLANT OPERATOR - Lisa Gonzalez, PT - 11/28/2024 10:42 AM EDT Physical Therapy PT Type of Visit: Medical deferral Reason For Medical Deferral: Off unit (2nd attempt to see pt she is still in echo. Will try back asable.) * PT/OT/CARBON CAPTURE POWER PLANT OPERATOR - Kim Washington OTR/L - 11/28/2024 10:41 [...] Description: INTERVENTIONS: 1. Encourage patient or legal computer help desk representative to report early pain and ask [...] per policy 9. Teach patient or legal computer help desk representative interventions for comforting Outcome: Progressing Note: [...] at the bedside 7. Instruct patient/ patient computer help desk representative about use of safety devices 8. Include patient/ patient computer help desk representative in decisions related to safety Outcome: [...] Description: INTERVENTIONS: 1. Encourage patient or legal computer help desk representative to report early pain and ask [...] per policy 9. Teach patient or legal computer help desk representative interventions for comforting Outcome: Progressing Note: [...] at the bedside 7. Instruct patient/ patient computer help desk representative about use of safety devices 8. Include patient/ patient computer help desk representative in decisions related to safety Outcome: Progressing Note: Evaluation of progress towards goal: call light within reach, bed in lowest position, patientwearing nonslip footwear Problem: Knowledge Deficit Goal: Patient/patient computer help desk representative demonstrates understanding of disease process, treatment [...] Score of =/> 25 or indicated by [facility] Assessment Goal: Patient should be free from fall Description: Interventions: 1. [place] to environment 2. Hourly rounds addressing the [...] non-skid footwear 11. Teach patient and patient computer help desk representative to maintain environment for safety and [...] (cane, walker) within reach 19. Request patient computer help desk representative bring adaptive equipment/mobility aids from home or obtain and provide as needed 20. Consult pharmacy regarding effects of med's affecting mobility, cognition, and alternatives 21. Obtain physician order for PT if risk factors associated with mobility are present 22. Obtain physician order for OT as appropriate 23. Utilize diversional activities 24. Educate patient and patient computer help desk representative how to maintain a safe environment during visitationtimes (notify nurse prior to leaving bedside) 25. Consider appropriateness of medical or non-medical leader 26. Set up voiding schedule as appropriate [...] DISCHARGE PLANNING NOTE Referral sent to [facility] (P# ; F# ) * Op Note - Kirby Cueva MD - 11/27/2024 12:19 PM EDT ORTHOPAEDIC SURGERY OPERATIVE REPORT Date of Surgery: 11/27/2024 Surgeon: Kirby Cueva MD Parachute Panel Joiner: Inocencia Kaerney PA-C A skilled orthopedic physician biology research assistant was needed for assistance during this [...] hip hemiarthroplasty for femoral neck fracture (CPT 20794) Intraoperative fluoroscopy with surgeon interpretation, less than 1 hour (CPT 18405) Anesthesia: General IV Fluids: Per anesthesia record Tourniquet Time: None Estimated Blood Loss: 150 mL Complications: None Implants: Pipe Biomet Taperloc size 8 high offset femoral stem Pipe Biomet 44 mm femoral head with +0 mm taper Implant Name Type Inv. Item Serial No. Cover Inspector Lot No. LRB No. Used Action STEM FEM 136MM 8MM 133D HI OS TPR TPRLK PPS TI HIP PRFT FULL - SN/A - [id number] Orthopedic ImplantSTEM FEM 136MM 8MM 133D HI OS TPR TPRLK PPS TI HIP PRFT FULL N/A Pipe [employer]omet [id number] Right 1 Implanted INSERT ACTB STD TPR HIP E-2 - SN/A - [id number] Orthopedic Implant INSERT ACTB STD TPR HIP E-2 N/A Pipe [employer]omet [id number] Right 1 Implanted HEAD UNPLR 44MM BIOMR II E-2 HIP COCRMO MDLR - SN/A - [id number] Orthopedic Implant HEAD UNPLR 44MMBIOMR II E-2 HIP COCRMO MDLR N/A [employer]ipe [employer] [id number] Right 1 Implanted Drains: None Specimens: None [...] alert, oriented during assessment. Pt transferred to [facility] from [facility] where pt presented with c/o hip pain after fall. Pt states she tripped over her walker. Pt found to have R hip fracture. Pt will be going to OR today. Patient lives in assisted living apartment [facility] in [place]. Pt reports she uses walker for ambulation. Pt reports she is mostly independent with ADL's but does need assistance with bathing. No current home care outside of [place] staff that assist her. Pt denied any concern getting or affording medications or food. Pt PCP and pharmacy verified. Pt denied any home oxygen. Pt denied any tobacco, alcohol or illicit drug use. DC Plan will be SNF: per pt and dtr they know pt will need a rehab stay prior to returning to her [place]. Pt/dtr would like [facility] as her 1st choice as pt has [...] of Residence Assisted living Care Facility Name [facility] in [facility] No Does The Patient Have [...] Yes List Provided Yes CarePort List Provided Snf Facility 3-Midnight Additional Comments (If Applicable) * Plan of Care - Terra Etienne RN - 11/27/2024 9:10 AM EDT Problem: Pain Goal: Patient goal is pain score less than 4, able to rest, and participant in treatment plan as appropriate Description: INTERVENTIONS: 1. Encourage patient or legal computer help desk representative to report early pain and ask [...] per policy 9. Teach patient or legal computer help desk representative interventions for comforting Outcome: Progressing Note: [...] at the bedside 7. Instruct patient/ patient computer help desk representative about use of safety devices 8. Include patient/ patient computer help desk representative in decisions related to safety Outcome: Progressing Note: Evaluation of progress towards goal: RN implementing the above precautions to maintain pt safety. Pt remains free from falls and injuries since beginning of shift. Call light within reach. Bed rails up x2. Orientation reviewed. Hourly rounded maintained. Proper use of double identifiers used.Standard precautions maintained. * PT/OT/CARBON CAPTURE POWER PLANT OPERATOR - Lisa Gonzalez, PT - 11/27/2024 7:58 AM EDT Physical Therapy PT Type of Visit: Medical deferral Reason For Medical Deferral: Medical procedure ongoing (Pt has pending sx for repair of hip fx.) * PT/OT/CARBON CAPTURE POWER PLANT OPERATOR - Kim Washington OTR/Alexsander - 11/27/2024 7:26 [...] Description: INTERVENTIONS: 1. Encourage patient or legal computer help desk representative to report early pain and ask [...] per policy 9. Teach patient or legal computer help desk representative interventions for comforting Outcome: Progressing Note: [...] at the bedside 7. Instruct patient/ patient computer help desk representative about use of safety devices 8. Include patient/ patient computer help desk representative in decisions related to safety Outcome: [...] hygiene technique. 7. Identify and instruct patient/patient computer help desk representative in use of appropriate isolation precautionsfor identified infection/symptoms. 8. Provide and discuss with patient/patient computer help desk representative on educational MDRO sheet. 9. Encourage and monitor nutritional status daily and consult assembler flexible leads if indicated. 10. Implement neutropenic guidelines as needed. Outcome: Progressing Note: Evaluation of progress towards goal: monitor for signs and symptoms of infection Problem: Knowledge Deficit Goal: Patient/patient computer help desk representative demonstrates understanding of disease process, treatment [...] Score of =/> 25 or indicated by [facility] Assessment Goal: Patient should be free from fall Description: Interventions: 1. [place] to environment 2. Hourly rounds addressing the [...] non-skid footwear 11. Teach patient and patient computer help desk representative to maintain environment for safety and [...] (cane, walker) within reach 19. Request patient computer help desk representative bring adaptive equipment/mobility aids from home or obtain and provide as needed 20. Consult pharmacy regarding effects of med's affecting mobility, cognition, and alternatives 21. Obtain physician order for PT if risk factors associated with mobility are present 22. Obtain physician order for OT as appropriate 23. Utilize diversional activities 24. Educate patient and patient computer help desk representative how to maintain a safe environment during visitationtimes (notify nurse prior to leaving bedside) 25. Consider appropriateness of medical or non-medical leader 26. Set up voiding schedule as appropriate (every 2 hours) Outcome: Progressing Note: Evaluation of progress towards goal: hourly rounding, provide assistive device, assist with ambulation documented in this encounterHenry County HospitalCaymas Systems [id number] Hospital course Narrative* Yasmin Goodrich MD - 12/01/2024 1:29 PM EDT Images from the original note were not included. [facility] Discharge Summary DISCHARGE NOTE Demographics: Patient Name: Rivka Turner : 1945 DATE OF ADMISSION: 11/26/2024 DATE OF DISCHARGE: 12/01/2024 DISCHARGE DIAGNOSES: Principal Problem: Closed fracture of right hip, initial encounter ([facility]) CONSULTANTS: Consulting Providers Provider Service Specialty Dane Pretty MD -- Nephrology PCP: Patient Care Team: Amador Abdalla MD as PCP - General ([facility]) HOSPITAL COURSE SUMMARY: Per HPI: This is a 79-year-old woman who has sustained a hip fracture transferred from [place] for intervention Mild acute kidney injury on [...] and Nephrology for further SPEP update and occupational therapy aides teacher said that he would get her in contact with the cumulative effects analyst as included on the after visit summary [...] Adult diet Follow up: Dane Pretty MD [address] [facility] [id number] Follow up in 2 week(s) . Dane Pretty MD [facility] [email or web address] Please call for appointment for post discharge follow-up : Office phone Number: [phone] Office If lab work up has not been ordered before appointment , please call office above and Labs will be ordered for you so that when you come for appointment we have lab results , have results faxed to the office please Jon Pretty MD [phone] [place] [facility] [address] Follow up in 2 week(s) For Iron infusion Amador Abdalla MD [address] [place] [address] Schedule an appointment as soon as possible [...] can correct any mistakes. [facility] History of Present illness Narrative* Dane Pretty MD - 12/01/2024 11:22 AM EDT Images from the original note were not included. Justin Abbasi [facility] Grayson Rivero, [facility] Nephrology Progress Note Patient Name: Rivka [...] in 3 weeks; Address [address], [address], [place] [address], Phone office: [phone] Thank you for this consultation DANE PRETTY MD on 12/01/2024 at 11:22 AM [facility] [email or web address] Schedule : See Epic on-call schedule for [facility] ) Nephrology Working Hours : Epic chat during working hours, if no response please use on- call physician reach out as below After Hours : Answering service contact : [phone] Subjective Seen at bedside, no acute distress no chest pain or worsening of shortness of breath reported, no new complaint. Plan discussed in detail at bedside all questions answered in detail appropriate counseling done. Past Medical History: Diagnosis Date CHF (congestive heart failure) ([facility]) Chronic kidney disease Coronary artery disease Dental disease Diabetes mellitus type 2, controlled ([facility]) Dizziness GERD (gastroesophageal reflux disease) Hyperlipidemia Hypertension Myocardial infarction ([facility]) Prolonged emergence from general anesthesia Past Surgical History: Procedure Laterality Date CHOLECYSTECTOMY CORONARY STENT PLACEMENT ESOPHAGOSCOPY HEMIARTHROPLASTY HIP Right 11/27/2024 Performed by Kirby Cueva MD at [facility] LAPAROSCOPIC HYSTERECTOMY OOPHORECTOMY OVARIAN CYST SURGERY [...] Resource Strain: Low Risk (01/22/2024) Received from [facility] Overall Financial Resource Strain (CARDIA) Difficulty of Paying Living Expenses: Not very hard Food Insecurity: No Food Insecurity (11/26/2024) Hunger Screening Food Insecurity - Worry: Never True Food Insecurity - Inability: Never True Transportation Needs: No Transportation Needs (11/26/2024) PRAPARE - Transportation Lack of Transportation (Medical): No Lack of Transportation (Non-Medical): No Physical Activity: Inactive (01/22/2024) Received from [facility] Exercise Vital Sign Days of Exercise per Week: 0 days Minutes of Exercise per Session: 0 min Stress: Stress Concern Present (01/22/2024) Received from [facility] [place] [facility] Occupational Health - Occupational Stress Questionnaire Feeling of Stress : To some extent Social Connections: Moderately Isolated (01/22/2024) Received from [facility] Social Connection and Isolation Panel [NHANES] Frequency of Communication with Friends and Family: Three times a week Frequency of Social Gatherings with Friends and Family: Twice a week Attends Christianity Services: 1 to 4 times per year [...] HYDROmorphone ondansetron oxyCODONE oxyCODONE perflutren lipid microspheres ([employer]) dilution injection 1.43 mg/10 mL sodium chloride [...] has sustained a hip fracture transferred from [place] for intervention Mild acute kidney injury on [...] mg 250 mg oral Q12H [facility] Inocencia Kearney PA-C 250 mg at 11/30/24 [...] Units 5,000 Units subcutaneous Q8H [facility] HELLEN RameshC 5,000 Units at 11/30/24 1309 [...] 4 mg 4 mg intravenous Q4H PRN Gonzlao Rolle MD oxyCODONE (ROXICODONE) immediate release tablet [...] Closed fracture of right hip, initial encounter ([facility]) Imaging Imaging has been reviewed in [...] no distress. HEENT: Atraumatic, normocephalic. Anicteric sclera. Nordic and moist oral mucosa. No carotid bruit. No JVD. Chest: Bilateral air entry, clear to auscultation, no wheezing, rhonchi or rales. Cardiovascular: RRR, S1S2, no murmur, rub or gallop. Has lower extremity edema. Abdomen: Soft, non tender to palpation. Active bowel sounds x 4 quadrants. Musculoskeletal: Active ROM x 4 extremities. No cyanosis or clubbing. Integumentary: Nordic, warm and dry. Free from rash or lesions. Skin turgor normal. FIGURE SKATER: Oriented to person, place and time. Speech [...] has sustained a hip fracture transferred from [place] for intervention Mild acute kidney injury on [...] mg 250 mg oral Q12H [facility] Inocencia Kearney PA-C cholecalciferol (vitamin D3) tablet [...] 25 mL 25 mL intravenous PRN Yasmin Godorich MD glucagon HCL injection 1 mg 1 mg intramuscular PRN Gonzalo Rolle MD glucagon HCL injection 1 mg 1 mg intramuscular PRN Yasmin Goodrich MD heparin (porcine) injection 5,000 Units 5,000 Units subcutaneous Q8H [facility] Inocencia Kearney PA-C 5,000 Units at 11/29/24 [...] (H) <120 mg/L URINE CREATININE,RDM 83.62 mg/dL U/PRO/PHILOSOPHY FACULTY RATIO CALC 1.52 (H) <=0.20 Narrative Nephrotic [...] Closed fracture of right hip, initial encounter ([facility]) Imaging Imaging has been reviewed in [...] Quinn RP - 11/29/2024 1:40 PM EDT [facility] Department of Pharmacy Pharmacist to Physician Communication The dose of cefuroxime for surgical prophylaxis has been changed to 250 mg every 12 hours per the [facility] approved renal dosing guidelines, based on an [...] no distress. HEENT: Atraumatic, normocephalic. Anicteric sclera. Nordic and moist oral mucosa. No carotid bruit. No JVD. Chest: Bilateral air entry, clear to auscultation, no wheezing, rhonchi or rales. Cardiovascular: RRR, S1S2, no murmur, rub or gallop. Has lower extremity edema. Abdomen: Soft, non tender to palpation. Active bowel sounds x 4 quadrants. Musculoskeletal: Active ROM x 4 extremities. No cyanosis or clubbing. Integumentary: Nordic, warm and dry. Free from rash or lesions. Skin turgor normal. FIGURE SKATER: Oriented to person, place and time. Speech [...] has sustained a hip fracture transferred from [place] for intervention Mild acute kidney injury on [...] mg 500 mg oral Q12H [facility] Inocencia Kearney PA-C cholecalciferol (vitamin D3) tablet [...] Units 5,000 Units subcutaneous Q8H [facility] Inocencia Kearney PA-C 5,000 Units at 11/28/24 [...] range has not been established by the protective service specialist of this kit. The [place] [employer] recommends a Vitamin D [...] range has not been established by the protective service specialist of this kit. The [place] [employer] recommends a Vitamin D [...] (H) <120 mg/L URINE CREATININE,RDM 83.62 mg/dL U/PRO/PHILOSOPHY FACULTY RATIO CALC 1.52 (H) <=0.20 Narrative Nephrotic [...] Closed fracture of right hip, initial encounter ([facility]) Imaging Imaging has been reviewed in [...] Dispo planning - noted PT/OT recommendations for alf facility Okay for discharge from orthopedic standpoint [...] has sustained a hip fracture transferred from [place] for intervention Mild acute kidney injury on [...] iso-osmotic dextrose (40 mg/mL premix) 2,000 mg [id number] Inocencia Kearney PA-C [START ON 11/28/2024] ceFUROxime [...] Procedure Abnormality Status --------- ------ Light Blue Top[[id number]] Final result SST TOP[[id number]] Final result Please view results for these [...] range has not been established by the protective service specialist of this kit. The [place] [employer] recommends a Vitamin D [...] range has not been established by the protective service specialist of this kit. The [place] [employer] recommends a Vitamin D [...] range has not been established by the protective service specialist of this kit. The [place] [employer] recommends a Vitamin D [...] Closed fracture of right hip, initial encounter ([facility]) Imaging Imaging has been reviewed in [...] MD 11:52 AM 11/27/2024 documented in this encounterCleveland Clinic10-10-2025 Consult note* NICOLE Cotton - 11/28/2024 11:21 [...] Closed fracture of right hip, initial encounter ([facility]) Past Medical History: Past Medical History: Diagnosis Date CHF (congestive heart failure) ([facility]) Chronic kidney disease Coronary artery disease Dental disease Diabetes mellitus type 2, controlled ([facility]) Dizziness GERD (gastroesophageal reflux disease) Hyperlipidemia Hypertension Myocardial infarction ([facility]) Prolonged emergence from general anesthesia Past Surgical History: Past Surgical History: Procedure Laterality Date CHOLECYSTECTOMY CORONARY STENT PLACEMENT ESOPHAGOSCOPY HEMIARTHROPLASTY HIP Right 11/27/2024 Performed by Kirby Cueva MD at [facility] LAPAROSCOPIC HYSTERECTOMY OOPHORECTOMY OVARIAN CYST SURGERY [...] (H) 03/19/2024 Lab Results Component Value Date [id number] 275 11/26/2024 Lab Results Component Value Date [...] mg 500 mg oral Q12H [facility] Inocencia Kearney PA-C cholecalciferol (vitamin D3) tablet [...] Units 5,000 Units subcutaneous Q8H [facility] Inocencia Kearney PA-C 5,000 Units at 11/28/24 [...] 2.5 mg 2.5 mg oral Q4H PRN Gonazlo Rolle MD 2.5 mg at 11/27/24 2224 [...] Skin (per nursing flow sheets): Skin Color: Nordic (11/28/24819) Skin Temp: Warm; Dry (11/28/24819) Wound [...] (Bed Scale, 11/27) Usual Body Weight: - [place] Body Weight: 54.5kg Percent [place] Body Weight: 139 Weight Changes: stable per above Body Mass Index: Body mass index is 31.07 kg/m . BMI Category: Obese class 1 (30.00- 34.99) Comparative Standards: Estimated Energy Needs: 6149-6069 kcals daily. Method and weight used: 25-30 kcal/kg IBW Estimated Protein Needs: 65-90 grams daily. Method and weight used: 1.2-2g protein/kg IBW Estimated Fluid Needs: 8185-2813 ml daily. Method weight used: 25-30 ml/kg [...] Gabriella Olvera R.D,L.D. Clinical dietitian Patient Touch extension:[phone] Direct Dial phone number: [phone] 11/28/24 11:43 AM * Dane Pretty MD - 11/28/2024 6:54 AM EDTAssociated Order(s): IP CONSULT TO NEPHROLOGY Images from the original note were not included. Justin Abb[facility] Grayson Rivero, [facility] Nephrology Consultation Note Patient Name: Rivka [...] Justin Abbasi [facility] [email or web address] Schedule : See Epic on-call schedule for [facility] ( [facility] ) Nephrology Working Hours : Epic chat during working hours, if no response please use on- call physician reach out as below After Hours : Answering service contact : [phone] History of presenting illness 79-year-old female with [...] History: Diagnosis Date CHF (congestive heart failure) ([facility]) Chronic kidney disease Coronary artery disease Dental disease Diabetes mellitus type 2, controlled ([facility]) Dizziness GERD (gastroesophageal reflux disease) Hyperlipidemia Hypertension Myocardial infarction ([facility]) Prolonged emergence from general anesthesia Past Surgical [...] Resource Strain: Low Risk (01/22/2024) Received from [facility] Overall Financial Resource Strain (CARDIA) Difficulty of Paying Living Expenses: Not very hard Food Insecurity: No Food Insecurity (11/26/2024) Hunger Screening Food Insecurity - Worry: Never True Food Insecurity - Inability: Never True Transportation Needs: No Transportation Needs (11/26/2024) PRAPARE - Transportation Lack of Transportation (Medical): No Lack of Transportation (Non-Medical): No Physical Activity: Inactive (01/22/2024) Received from [facility] Exercise Vital Sign Days of Exercise per Week: 0 days Minutes of Exercise per Session: 0 min Stress: Stress Concern Present (01/22/2024) Received from [facility] [place] of Occupational Health - Occupational Stress Questionnaire Feeling of Stress : To some extent Social Connections: Moderately Isolated (01/22/2024) Received from [facility] Social Connection and Isolation Panel [NHANES] Frequency of Communication with Friends and Family: Three times a week Frequency of Social Gatherings with Friends and Family: Twice a week Attends Christianity Services: 1 to 4 times per year [...] is a 79 y.o. female presents to [facility] with right hip pain. Patient states that she was walking too fast with her walker and fell onto her right side. She had immediate pain and inability to ambulate. She was seen at an outside hospital and subsequently transferred to the [facility] for definitive treatment. She denies pain or [...] 11/27/2024 11:52 AM EDT documented in this encounterCleveland Clinic10-09-2025 Hospital Discharge instructions* Discharge Instructions* Inocencia Kearney PA-C - 11/27/2024 11:59 AM EDT ORTHOPAEDIC DISCHARGE INSTRUCTIONS Diagnosis: Right femoral neck fracture Procedure: Right hip hemiarthroplasty Follow-Up Appointment: Dr. Cueva on Future Appointments Date Time Provider Department Center 12/10/2024 8:45 AM Kirby Cueva MD [facility] [place] Office Location: [facility] [address] [place], [place] [id number] RN: Julia Smith - Dr King RN: [...] * Hip fracture in adults Discharge instructions (Scottish) * Osteoporosis and osteopenia (low bone mass) ([place]ish) * Preventing falls in adults ([place]ish) documented in this encounterCleveland Clinic10-08-2025 Emergency department Note* Loren Cui RN - 11/26/2024 7:18 PM EDT [facility] calls requesting update. [employer] Test Engineer stated patient was transferred to [facility] ER. * Mandy Gannon RN - 11/26/2024 5:18 PM EDT Bed: 41 Expected date: Expected time: Means of arrival: Comments: 29 * Gian Green DO - 11/26/2024 4:39 PM EDT Images from the original note were not included. [facility] - EMERGENCY DEPARTMENT Pt Name: Rivka Turner [...] Resource Strain: Low Risk (01/22/2024) Received from [facility] Overall Financial Resource Strain (CARDIA) Difficulty of Paying Living Expenses: Not very hard Food Insecurity: No Food Insecurity (11/26/2024) Hunger Screening Food Insecurity - Worry: Never True Food Insecurity - Inability: Never True Transportation Needs: No Transportation Needs (09/24/2024) Received from [facility] [place] - Transportation Lack of Transportation (Medical): No Lack of Transportation (Non-Medical): No Physical Activity: Inactive (01/22/2024) Received from [facility] Exercise Vital Sign Days of Exercise per Week: 0 days Minutes of Exercise per Session: 0 min Stress: Stress Concern Present (01/22/2024) Received from [facility] [place] of Occupational Health - Occupational Stress Questionnaire Feeling of Stress : To some extent Social Connections: Moderately Isolated (01/22/2024) Received from [facility] Social Connection and Isolation Panel [NHANES] Frequency of Communication with Friends and Family: Three times a week Frequency of Social Gatherings with Friends and Family: Twice a week Attends Christianity Services: 1 to 4 times per year Active Member of Clubs or Organizations: No Attends Club or Organization Meetings: Never Marital Status: Received from [facility] [place] Safety & Environment Housing Instability: Low Risk (09/24/2024) Received from [facility] Housing Stability Vital Sign Unable to [...] Closed fracture of right hip, initial encounter ([facility]) . ED Disposition ED Disposition Admit [...] I, Dr. Melia Green personally performed a [id number] diagnostic evaluation on this patient. I personally made and approved the management plan for this patient and take responsibility for the patient management. Additional Notes/Findings: Rivka Turner is a 79 y.o. female presenting to the ED for chief complaint of a fall. Patient arrives after a slip and fall on her right hip at [facility]. Denies injury anywhere else. Exam findings as [...] EDT Pt to ED via EMS from [place]. EMS reports pt was walking too fast with walker and slipped and fellon her way [facility]. Pt presented to [place] ER where she was found to have a right subcapital femoral neck fracture. Pt denies LOC or hitting head. Pt presents a&ox4, vss, and NAD noted. * Mandy Gannon RN - 11/26/2024 4:15 PM EDT Bed: 29 Expected date: Expected time: Means of arrival: [facility] Comments: 79 YO F from [facility] ER transfer Rivka Turner. 1945 A&Ox4 Tripped over walker trying to get to hair appt 50mcg Fent 79 y/o F. Right subcapital femoral neck fracture. Dr. Bhagat (orthopedic) accepted to ER. Dr. Ness aware of patient. Question, call Access @ [phone] EMS: 65 HR 95%RA 152/56 ETA 15 min Right hip pain 08/28 documented in this encounterVermont Psychiatric Care HospitalEditas Medicine10-08-2025 History and physical note* Gonzalo Rolle MD [...] the emergency department after being transferred from [place]. Patient was walking too fast with her walker, sustained a fall and developedsevere right hip pain. Patient denies loss of consciousness. . Only severe right hip pain. X-ray ofher hip showed right subcapital femoral neck fracture and patient was transferred to [facility] for further management. Patient denies chest pain, [...] Procedure Abnormality Status --------- ------ Light Blue Top[[id number]] Final result SST TOP[[id number]] Final result Please view results for these [...] Gonzalo Rolle MD4:41 PM documented in this encounterCleveland Clinic07-17-2025 History of Present illness Narrative* Turner Arcos [...] Bradycardia CAD (coronary artery disease) CAD in [place] artery Cerebrovascular disease Chronic constipation Chronic diastolic heart failure (HCC) Chronic sinusitis, unspecified location CVA (cerebral vascular accident) ([facility]) Depression Diabetes ([facility]) Dyslipidemia Fibromyalgia SCOTTY (generalized anxiety disorder) GERD (gastroesophageal reflux disease) Hiatal hernia HTN (hypertension) Hyperkalemia Hyperlipidemia Insomnia, persistent Kidney disease MDD (major depressive disorder), recurrent episode, mild Overflow incontinence Primary osteoarthritis of both knees Pulmonary hypertension ([facility]) Seasonal allergic rhinitis due to pollen Stage 3b chronic kidney disease (CKD) ([facility]) Type 2 diabetes mellitus with hyperglycemia, without long-term current use of insulin ([facility]) Vitamin D deficiency Medications: Current Outpatient Medications: [...] Disp: 90 tablet, Rfl: 3 Continuous Glucose Power Mule Operator (FreeStyle Violet 3 [place]) device, 1 each continuously, Disp: 1 each, [...] minutes ifneeded., Disp: , Rfl: nystatin (Mycostatin) [id number] UNIT/GM powder, Apply 1 application topically in [...] 0 min Stress: Stress Concern Present (01/22/2024) [place] of Occupational Health - Occupational Stress Questionnaire Feeling of Stress : To some extent Social Connections: Moderately Isolated (01/22/2024) Social Connection and Isolation Panel [NHANES] Frequency of Communication with Friends and Family: Three times a week Frequency of Social Gatherings with Friends and Family: Twice a week Attends Christianity Services: 1 to 4 times per year Active Member of Clubs or Organizations: No Attends Club or Organization Meetings: Never Marital Status: Intimate Partner Violence: Unknown (04/12/2023) Received from [facility] [place] Safety & Environment Fear of [...] and negative PT pedal pulses NEURO: 5.07 [place] monofilament test positive to digits [...] gear. Turner Wilkins DPM documented in this encounterHedrick Medical [id number] NoteSpoke with patient and she agrees to nephrology referral. Faxed to [facility] in [place].[facility]07-10-2025 History of Present illness Narrative* Amador [...] hyperglycemia, without long-term current use of insulin ([facility]) - Primary Reports BS improved and due for A1C. Stick to ADA diet and limit carbs. Relevant Orders Hemoglobin A1c Benign essential hypertension BP low and c/o lightheadedness. Stop amlodipine and continue to monitor. Primary insomnia Not sleeping well without restoril and resume. documented in this encounterHedrick Medical [id number] NoteUT Cardiology - [facility] Subjective Rivka Turner is a 79 y.o. year old female patient being seen for 1 year follow up. Patient states she feels ok. Patient complains of leg swelling Patient Active Problem List Diagnosis Coronary artery disease involving [place] coronary artery of [place] heart without angina pectoris CKD stage 4 [...] dehydration and JAKI, treated by hydration at [facility] and did well. Since then she has been feeling well and has been eating and drinking well and no longer takes trazodone and lasix is 40 mg daily. No chest pain and no dyspnea. Her Cr on 07/09/2017 was 1.96 and down to 1.7 on 07/10/2017. Update 11/16/2017: She is seen in follow up. Most recently she was admitted to [facility] with decompensated diastolic heart failure. She was diuresed, went into JAKI with Cr 2.0 but her renal function is improving. She was changed from lasix to bumex. She is very nervous. She reports that she was getting chest discomfort during the admission but is ok now. Echocardiogram 11/02/2017: Normal ventricular systolic function. Moderate diastolic dysfunction. Severely elevated right sided pressures. [facility] 11/05/2017: Cr 1.55; BUN 55. NT-proBNP 4184 [facility] 11/12/2017: BUN 42, Cr 1.47, K 4.5. Update 01/04/2018: She is seen in follow up. Last visit I saw her after her admission to [facility] with heart failure and she developed [...] 50% stenosis. Antegrade vertebral artery Doppler flows. [facility] 01/01/2018: Cr 1.65, BUN 40. K 3.9. Update 12/09/2018: She is seen in follow-up. Most recently she was admitted to the [facility] and transferred to [facility] due to decompensated diastolic heart [...] all the time. Blo (more content not included)...[facility]05-24-2025 NotePatient Education Obstetrics and Gynecology Urinary [...] these instructions at home: Medicines ??? Take eixa-bgw-greyanx and prescription medicines only as told by [...] provider. Document Revised: 09/12/2020 Document Reviewed: 09/17/2020 [employer] Patient Education ? 2023 [employer] 06-19-2024 History of Present illness Narrative* Turner [...] CAD (coronary artery disease) (CMS/HCC) CAD in [place] artery (CMS/HCC) Cerebrovascular disease Chronic constipation Chronic diastolic heart failure (CMS/HCC) Chronic sinusitis, unspecified location CVA (cerebral vascular accident) ([facility]) Depression (CMS/HCC) Diabetes (CMS/HCC) Dyslipidemia (CMS/HCC) Fibromyalgia SCOTTY (generalized anxiety disorder) ([facility]) GERD (gastroesophageal reflux disease) Hiatal hernia HTN (hypertension) ([facility]) Hyperkalemia Hyperlipidemia ([facility]) Insomnia, persistent Kidney disease MDD (major depressive disorder), recurrent episode, mild (HCC) ([facility]) Overflow incontinence Primary osteoarthritis of both knees Pulmonary hypertension ([facility]) Seasonal allergic rhinitis due to pollen Stage 3b chronic kidney disease (CKD) ([facility]) Type 2 diabetes mellitus with hyperglycemia, without long-term current use of insulin ([facility]) Vitamin D deficiency Medications: Current Outpatient Medications: [...] Disp: 90 tablet, Rfl: 3 Continuous Glucose Power Mule Operator (FreeStyle Violet 3 [place]) device, 1 each continuously, Disp: 1 each, [...] Disp: 90 tablet, Rfl: 3 glucose blood (Illuminate Labsuch Ultra Test) test strip, 1 each by Other route Daily Use as instructed, Disp: 50 each, Rfl: 11 hydrALAZINE (Apresoline) 100 MG tablet, TAKE 1 TABLET BY MOUTH THREE TIMES A DAY, Disp: 270 tablet,Rfl: 3 HYDROcodone-acetaminophen ([place]) 5-325 MG tablet, Take 1 tablet by [...] minutes ifneeded., Disp: , Rfl: nystatin (Mycostatin) [id number] UNIT/GM powder, Apply 1 application topically in [...] 0 min Stress: Stress Concern Present (01/22/2024) [place] of Occupational Health - Occupational Stress Questionnaire Feeling of Stress : To some extent Social Connections: Moderately Isolated (01/22/2024) Social Connection and Isolation Panel [NHANES] Frequency of Communication with Friends and Family: Three times a week Frequency of Social Gatherings with Friends and Family: Twice a week Attends Christianity Services: 1 to 4 times per year Active Member of Clubs or Organizations: No Attends Club or Organization Meetings: Never Marital Status: Intimate Partner Violence: Unknown (04/12/2023) Received from [facility] Safety & Environment Fear of Current [...] and negative PT pedal pulses NEURO: 5.07 [place] monofilament test positive to digits and forefoot bilaterally 125Hz tuning fork positive to 1st MPJ bilaterally ORTHO: Positive pain on palpation to toenails of the left 1,2,3,4,5 toes and right 1,2,3,4,5 toes ASSESSMENT 1. Type 2 diabetes mellitus without complication, unspecified whether buttermaker continuous churn insulin use 2. Pain due to onychomycosis [...] gear. Turner Wilkins DPM documented in this encounterHedrick Medical [id number] History of Present illness Narrative* Amador Abdalla MD - 05/27/2024 12:15 PM EDTAssociated Problem(s): Type 2 diabetes mellitus with hyperglycemia, without long-term current use of insulin ([facility]) Medication adjusted in SNF and will check [...] hyperglycemia, without long-term current use of insulin ([facility]) Medication adjusted in SNF and will check A1C next visit. Benign essential hypertension ([facility]) BP elevated today but did not take medication and usually normal. Continue to monitor PRN. Type 2 diabetes mellitus with diabetic microalbuminuria ([facility]) Medicare annual wellness visit, subsequent - Primary Reviewed labs. Discussed proper diet and regular aerobic exercise. Need to increase walking and continue PT exercises. Smaller portions and limit total calories. Tetanus every 10 years. Advised not to smoke. Discussed daily Aspirin therapy. Other Visit Diagnoses Upper respiratory tract infection, unspecified type Relevant Medications fluticasone (Flonase) 50 MCG/ACT nasal spray documented in this encounterHedrick Medical [id number] History of Present illness Narrative* Boby Earl, DO - 05/13/2024 11:59 PM EDT Patient Name: Rivka Turner Date of : 1945 Date of Service: 05/13/2024 [place] [facility] Type of Visit: Skilled Visit Subjective Rivka Turner is a 78 y.o. female seen today at alf facility for therapy visit. Rivka is going [...] Exam Vitals reviewed. Exam conducted with a frame repairer present (Chris Stauffer MS 3). Constitutional: General: [...] BY: Boby Earl DO documented in this encounterCleveland Clinic03-18-2025 History of Present illness Narrative* Boby Buenrostro Mady, DO - 05/06/2024 2:41 PM EDT Patient Name: Rivka Turenr Date of : 1945 Date of Service: 05/06/2024 [place] [facility] [place] Visit: Skilled Visit Subjective Rivka Turner is a 78 y.o. female seen today at alf facility for skilled visit. Rivka is participating [...] Plan 1. Chronic diastolic congestive heart failure ([facility]) 2. Other fracture of unspecified lumbar vertebra, subsequent encounter for fracture with routine healing 3. Essential hypertension 4. Type 2 diabetes mellitus with stage 3b chronic kidney disease, with long-term current use of insulin ([facility]) Medically stable. Continue current regimen. Continue oxygen for now. Maybe able to wean off. Might need a nocturnal pulse ox study to see if she needs nighttime oxygen. Continue therapy to reach maximum improvement. All medications reviewed and are medically necessary. ELECTRONICALLY SIGNED BY: Boby Earl DO documented in this encounterCleveland Clinic03-11-2025 History of Present illness Narrative* Boby Earl DO - 04/29/2024 11:59 PM EDT Patient Name: Rivka Turner Date of : 1945 Date of Service: 04/29/2024 [place] [facility] [place] of Visit: Skilled Visit Subjective Rivka Turner is a 78 y.o. female seen today at alf facility for skilled visit. Rivka complains of [...] Plan 1. Chronic diastolic congestive heart failure ([facility]) 2. Type 2 diabetes mellitus with stage 3b chronic kidney disease, with long-term current use of insulin ([facility]) 3. Other fracture of unspecified lumbar vertebra, subsequent encounter for fracture with routine healing 4. Generalized anxiety disorder Medically stable. Continue therapy to reach maximum improvement. Her oxygen saturations are ok when she has SOB. Monitor for now. Likely CHF but is also deconditioned. All medications reviewed and are medically necessary. ELECTRONICALLY SIGNED BY: Boby Earl DO documented in this encounterVermont Psychiatric Care HospitalGenomed [id number] History of Present illness Narrative* Boby Earl DO - 04/25/2024 11:59 PM EST Patient Name: Rivka Turner Date of : 1945 Date of Service: 04/25/2024 [place] [facility] [place] of Visit: Admission H&P Subjective Rivka Turner is a 78 y.o. female seen today at alf facility for admission H&P. Rivka presents today for [place] [facility] [place] She was recently discharged from the [facility] for acute on chronic congestive heart failure. She was at a another custodial previously and had to be sent out [...] Exam Vitals reviewed. Exam conducted with a frame repairer present (Eitan Tom MS 3). Constitutional: General: [...] Acute combined systolic and diastolic heart failure ([facility]) 2. Other fracture of unspecified lumbar vertebra, subsequent encounter for fracture with routine healing 3. Urinary tract infection with hematuria, site unspecified 4. Pneumonia due to infectious organism, unspecified laterality, unspecified part of lung 5. Essential hypertension 6. Type 2 diabetes mellitus with stage 3b chronic kidney disease, with long-term current use of insulin ([facility] [place]) 7. Iron deficiency anemia, unspecified iron deficiency anemia type 8. Personal history of transient ischemic attack (TIA), and cerebral infarction without residual deficits 9. Recurrent major depressive disorder, in remission ([facility] [place]) 10. Generalized anxiety disorder 11. Weakness 12. Old myocardial infarction 13. History of falling [place] [facility] [place]. Continue antibiotic, hydrocodone-APAP and temazepam along with other medications Will hold off on alprazolam due to fall risk. Full code Fair to good rehab potential. ELECTRONICALLY SIGNED BY: Boby Earl DO documented in this encounterCleveland Clinic02-05-2025 Telephone encounter Note* Telephone Encounter - Amador Abdalla MD - 03/26/2024 3:01 PM EST [facility] [id number] Miscellaneous Notes* Telephone Encounter - Amador Abdalla MD - 03/26/2024 3:01 PM EST documented in this encounterNOMercy Hospital South, formerly St. [facility] [id number] History of Present illness Narrative* Amador Abdalla MD - 02/29/2024 2:13 PM ESTAssociated Problem(s): Type 2 diabetes mellitus with hyperglycemia, without long-term current use of insulin ([facility]) Not checking BS and due for A1C. BS elevated and not controlled. Script for CGM to pharmacy. Stick to ADA diet and limit carbs. * Amador Abdalla MD - 02/29/2024 2:13 PM ESTAssociated Problem(s): Stage 3b chronic kidney disease (CKD) ([facility]) Check labs * Amador Abdalla MD - [...] PM ESTAssociated Problem(s): Chronic diastolic heart failure ([facility]) Edema stable and continue medication. Elevate legs [...] 78 y.o. female who presents for Follow-up ([facility] er f/up 02/23/24) and Knee Pain. ER [...] Problem List Items Addressed This Visit Dyslipidemia ([facility]) Relevant Orders Lipid panel Chronic diastolic heart failure ([facility]) Edema stable and continue medication. Elevate legs PRN. Follow up with cardiology. Primary osteoarthritis of both knees Pain worse and check x-ray. Refer to ortho and use norco PRN. Relevant Orders XR knee 1 or 2 views right XR knee 1 or 2 views left Ambulatory referral to Orthopaedic Surgery Stage 3b chronic kidney disease (CKD) ([facility]) Check labs Relevant Orders Basic metabolic panel Type 2 diabetes mellitus with hyperglycemia, without long-term current use of insulin ([facility]) Not checking BS and due for A1C. BS elevated and not controlled. Script for CGM to pharmacy. Stick to ADA diet and limit carbs. Relevant Medications Continuous Glucose Power Mule Operator (Dexcom G7 Power Mule Operator) device Continuous Glucose Sensor (Dexcom G7 Sensor) misc Other Relevant Orders Microalbumin / creatinine, urine ratio Hemoglobin A1c Benign essential hypertension ([facility]) BP elevated today but did not take [...] Pain improved and monitor. documented in this encounterHedrick Medical [id number] History of Present illness Narrative* Turner Wilkins [...] Arachnoid cyst Bradycardia CAD (coronary artery disease) ([facility]) CAD in [place] artery ([facility]) Cerebrovascular disease Chronic constipation Chronic diastolic heart failure ([facility]) Chronic sinusitis, unspecified location CVA (cerebral vascular accident) ([facility]) Depression ([facility] Diabetes ([facility]) Dyslipidemia ([facility]) Fibromyalgia SCOTTY (generalized anxiety disorder) ([facility]) GERD (gastroesophageal reflux disease) Hiatal hernia HTN (hypertension) ([facility]) Hyperkalemia Hyperlipidemia ([facility]) Insomnia, persistent Kidney disease MDD (major depressive disorder), recurrent episode, mild (HCC) ([facility]) Overflow incontinence Primary osteoarthritis of both knees Pulmonary hypertension ([facility]) Seasonal allergic rhinitis due to pollen Stage 3b chronic kidney disease (CKD) ([facility]) Type 2 diabetes mellitus with hyperglycemia, without long-term current use of insulin ([facility]) Vitamin D deficiency Medications: Current Outpatient Medications: [...] tablet before bedtime., Disp: , Rfl: HYDROcodone-acetaminophen ([place]) 5-325 MG tablet, Take 1 tablet by [...] minutes ifneeded., Disp: , Rfl: nystatin (Mycostatin) 965787 UNIT/GM powder, Apply 1 application topically in [...] 0 min Stress: Stress Concern Present (01/22/2024) [place] [employer] - Occupational Stress Questionnaire Feeling of Stress : To some extent Social Connections: Moderately Isolated (01/22/2024) Social Connection and Isolation Panel [NHANES] Frequency of Communication with Friends and Family: Three times a week Frequency of Social Gatherings with Friends and Family: Twice a week Attends Christianity Services: 1 to 4 times per year Active Member of Clubs or Organizations: No Attends Club or Organization Meetings: Never Marital Status: Intimate Partner Violence: Unknown (04/12/2023) [facility] [place] [employer] Environment Fear of [...] and negative PT pedal pulses NEURO: 5.07 [place] monofilament test positive to digits [...] gear. Turner Wilkins DPM documented in this encounterHedrick Medical [id number] History of Present illness Narrative* Amador Abdalla MD - 11/12/2023 3:43 PM EDTAssociated Problem(s): CAD in [place] artery ([facility]) No symptoms and follow with cardiology. * Amador Abdalla MD - 11/12/2023 3:42 PM EDTAssociated Problem(s): Type 2 diabetes mellitus with hyperglycemia, without long-term current use of insulin ([facility]) Not checking BS and due for A1C. [...] were not included. Subjective Patient ID: Rivka Truner is a 78 y.o. female who presents [...] and use norco PRN. Relevant Medications HYDROcodone-acetaminophen ([place]) 5-325 MG tablet Stage 3b chronic kidney [...] Diagnoses Skin candidiasis Relevant Medications nystatin (Mycostatin) 460678 UNIT/GM powder documented in this encounterHedrick Medical [id number] Progress note Author Andrea Marinelli [facility] June 25, 2021 11:27amNote Date/TimeMay 2021 11:18[place] [address] Cardiology Progress Note Signed Patient: Rivka Turner MR#: [id number] : 1945 Acct:[id number] Age/Sex: 75 / F Adm Date: 2 Loc: Room: [address] [place] [address] Type : ADM IN Attending Dr: Rusty [...] previous stents approximately 7 years ago in [place] details of which are unknown She really routinely follows with cardiology and saw her radial saw operator 3 months ago with no symptoms Comorbidities are noted for diabetes, obesity, hyperlipidemia, chronic kidney disease and essentialhypertension Mrs. Turner is doing well today status post PCI to the RCA (HIDE PULLER) done per Dr. Bolivar yesterday. 2 drug-eluting [...] MPV Neut % (Auto) Lymph % (Auto) [place] % (Auto) Eos % (Auto) Baso % (Auto) Neut # (Auto) Lymph # (Auto) [place] # (Auto) Eos # (Auto) Baso # [...] % (Auto) 90.9 Lymph % (Auto) 4.3 [place] % (Auto) 4.5 Eos % (Auto) 0.0 Baso % (Auto) 0.3 Neut # (Auto) 9.6 H Lymph # (Auto) 0.4 L [place] # (Auto) 0.5 Eos # (Auto) 0.0 Baso # (Auto) 0.0 Nucleated RBC % (auto) 0.0 PT INR APTT POC Glucose 322 294 POC Glucose Comment Troponin I High Sens 06/25/21 06/25/21 06/25/21 05:24 05:24 07:51 Corrected WBC Uncorrected WBC Count RBC Hgb Hct MCV MCH MCHC RDW Plt Count MPV Neut % (Auto) Lymph % (Auto) [place] % (Auto) Eos % (Auto) Baso % (Auto) Neut # (Auto) Lymph # (Auto) [place] # (Auto) Eos # (Auto) Baso # [...] days. 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 Code(s): E11.9 - Type 2 diabetes mellitus without complications Status: Acute Plan: Okay to resume oral metformin in 24 hours. Aggressive glycemic control and control of serum insulinlevels is recommended. 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 Within the construct of phase 2 monitored cardiac rehabilitation, a minimum 10% total body weight loss is strongly recommended Plan Okay for discharge to home today. Patient may follow-up with her primary radial saw operator in [place] within 10 days. Again, as mentioned above, enrollment in phase2 monitored cardiac rehabilitation is strongly recommended Time spent with patient Time Spent With Patient (min): 30 Documented By: Andrea Marinelli MD 06/25/21 1116 Signed By: <Electronically signed by Andrea Marinelli MD> 06/25/21 1127 [facility] Work Phone: 1(759) 470-887705-07-2022 History of Present illness Narrative* Andreas Freitas MD - 06/25/2021 10:50 AM EDT Images from the original note were not included. EMERGENCY TRIAGE, TREAT AND TRANSPORT (ET3) DOCUMENTATION OF TELEHEALTH VISIT Date / Time: 06/23/20211929 Name: Rivka Turner : 1945 SSN: (Not on file) EMS Agency: [facility] [x] Verbal consent obtained [] Implied [...] vomiting, fever. She does have nausea. She [id number] due to the chest pain, but the [...] by: Andreas Freitas MD documented in this [id number] Progress note Author Rusty Amor [facility] June 24, 2021 4:36pmNote Date/TimeMay 2021 3:50pm[place] [address] Hospitalist Progress Note Signed Patient: Rivka Turner MR#: [id number] : 1945 Acct:[id number] Age/Sex: 75 / F Adm Date: 2 Loc: Room: [address] [place] [address] Type : ADM IN Attending Dr: Rusty [...] care and confirmed it with the re sident/student/CONE EXAMINER. Patient was seen and examined at bedside [...] Mg-*D5w* IV 06/24/22 15:29 .Q24H [facility] Protocol 5 MCG/MIN Insulin Aspart 0 units 06/24/21 08:00 06/24/21 12:10 Insulin Aspart 300 Units/3 Ml Insuln.Pen SUBCUT 06/24/22 07:59 Not Given TID.WM.HS [facility] Protocol Insulin Detemir 10 units 06/24/21 22:00 Insulin Detemir 300 Units/3 Ml Insuln.Pen SUBCUT 06/24/22 21:59 QHS [facility] Lidocaine HCl 10 ml 06/24/21 13:52 Lidocaine [...] Capsule PO 06/24/22 21:59 HS [facility] Ticagrelor 90 mg 06/24/21 23:00 Ticagrelor 90 [...] CKD ?BUN 32 and creatinine 2.05 at [place] yesterday Continue home medications. PT/OT Full code Rapid COVID-negative at [place] Documented By: Nick Carr DO, RES 06/24/21 154 7 Signed By: <Electronically signed by DO JOSE DE JESUS Carr> 06/24/21 1633 <Electronically signed by Rusty Amor MD> 06/24/21 1636 [facility] Work Phone: 1(461) 819-317005-06-2022 Consult note Author Gen Bolivar [facility] June 24, 2021 2:02pmNote Date/TimeMay 2021 12:55pm[place] [address] Cardiology Consult Note Signed Patient: Rivka Turner MR#: [id number] : 1945 Acct:[id number] Age/Sex: 75 / F Adm Date: 2 Loc: Room: [address] [place] [address] Type : ADM IN Attending Dr: Rusty Amor MD Copies to: MD Amador Winston MD W Scott Sheldon, DO~ Cardiology HPI History of Present Illness Consult Date: 06/24/21 Reason for Consult: Non-ST elevation PR HPI: Ms. Turner is a 75 year [...] previous stents approximately 7 years ago in [place] details of which are unknown She really routinely follows with cardiology and saw her radial saw operator 3 months ago with no symptoms [...] x10E3/uL Lymph # (Auto) 1.8 (1.00-4.8) x10E3/uL [place] # (Auto) 0.6 (0.0-0.8) x10E3/uL Eos # [...] Code(s): I25.10 - Atherosclerotic heart disease of [place] coronary artery without angina pectoris (4) Diabetes: Code(s): E11.9 - Type 2 diabetes mellitus without complications (5) HTN (hypertension): Code(s): I10 - Essential (primary) hypertension Documented By: Gen Bolivar DO 06/24/21 1248 Signed By: <Electronically signed by Gen Bolivar DO> 06/24/21 1406 [facility] Work Phone: 1([phone]) 367-948005-06-2022 Procedure noteThe [facility]05-[facility]-2022 Procedure noteThe [facility]05-06-2022 History and physical note Author Xander Nam [facility] June 24, 2021 6:14amNote Date/TimeMay 2021 5:14[place] [address] Hospitalist H&P Signed Patient: Rivka Turner MR#: [id number] : 1945 Acct:[id number] Age/Sex: 75 / F Adm Date: 2 Loc: Room: [address] [place] [address] Type : ADM IN Attending Dr: Xander [...] type II, fibromyalgia, CKD who [facility]with [facility] pain that started in the afternoon while she was watching TV with associated shortness of breath. She described this pain as pressure that involved her left chest as well as left breast and axilla. She presented to the [place] emergency department and blood pressure was 160/71 [...] units/kg/h. She was transferred to [facility] for cardiac care for NSTEMI. The patient denied fever/chills, N/V, constipation/diarrhea. She does have history of chronic headaches however notes worsening of headache since yesterday. She does take Lasix as well with as needed for pedal edema. On evaluation at [facility], patient continues to endorse resting chest pain however diminished since initial presentation at [place]. Per RN she was saturating 94% on [...] yesterday afternoon. ?Chest x-ray unremarkable ?EKG at [place] normal sinus rhythm with no acute ischemia ?At [place] troponin 162.6 with repeat 658.9. Repeat at [facility] ordered. ?Patient received bolus porcine heparin at 60 units/kg at [place] with maintenance at 12 units/kg/h. Maintenance will be continued here. ?Coreg initiated at 12.5 mg twice daily. We will hold amlodipine pending cardiology recommendation. ?Continue losartan. ? Hold amlodipine and lasix pending cardiology consult. ?Cardiology consult ?Morphine for severe pain. Target pulse ox greater than 90%. Nitro for worsening chest pain. Received 324 mg aspirin at [place]. 2. Coronary artery disease ?Status post 2 stents 5 and 7 years ago respectively per patient ?Continue atorvastatin 40 mg and 81 mg aspirin 3. Diabetes ?Hold home metformin and glipizide ?Initiate basal detemir 10 units with sliding scale coverage 4. CKD ?BUN 32 and creatinine 2.05 at [place] yesterday Continue home medications. PT/OT Full code Rapid COVID-negative at [place] Attending Provider Attestation Attending Physician Attestation: I personally saw this patient on the day of the encounter, reviewed the history,performed the cruz elements of the exam, formulated the plan of care and confirmed the resident's/director internal communications/medical student's dictation/written note. Documented By: Marlon Leon DO, RES 06/24/21 050 4 Signed By: <Electronically signed by DO JOSE DE JESUS Leon> 06/24/21 0537 <Electronically signed by Xander Ortiz MD> 06/24/21 0614 [facility] Work Phone: Discharge summary Author Rusty Amor [facility] June 25, 2021 1:30pmNote Date/TimeMay 2021 1:30pm[place] [address] Discharge Summary Signed Patient: Rivka Turner MR#: [id number] : 1945 Acct:[id number] Age/Sex: 75 / F Adm Date: 2 Loc: Room: [address] [place] [address]: Rusty Amor MD Copies to: [...] She presented to the emergency department of [facility] on June 24, complaining of chest discomfort. Her troponins were abnormal. She was transferred to our hospital witha diagnosis of non-STEMI. She was taken to the [facility] on June 25, where she underwent coronary [...] W Domingo Bolivar DO s CL PCI HIDE PULLER 1st Vessel RCA BAMBI - W Domingo [...] Neut % (Auto) 90.9, Lymph % (Auto)4.3, [place] % (Auto) 4.5, Eos % (Auto) 0.0, Baso % (Auto) 0.3, Neut # (Auto) 9.6 H, Lymph # (Auto) 0.4 L, [place] # (Auto)0.5, Eos # (Auto) 0.0, Baso [...] doctor or pharmacist, without first calling the radial saw operator who implanted the stent. If you [...] weight lifting, stair steppers, etc. until the radial saw operator approves these activities. Check with the radial saw operator on your first follow-up visit. CALL YOUR PHYSICIAN at [phone]: -If bleeding should occur from the catheter insertion site- apply pressure to the site then immediately call us. -Report any fever, redness, drainage, increased swelling, or firmness at the catheter insertion site. Some bruising or slight swelling may be present at thetime of discharge. -Should arm or leg become cold, numb, white, or blue, contact the radial saw operator immediately. -IF you should experience episodes [...] is recommended. Please call Central Scheduling at [phone] to schedule your appointment.] The attending radial saw operator or [facility] nurse clinician should provide you with specific instructions regarding activity, diet, medications, and further follow up for you. Follow the medication instructions provided on your discharge. If the dosages and instructions on this sheet differ from the dosage and instructions on the bottle, follow the instructions on the bottle. [facility] is not responsible for incorrect prescription [...] Sunday to schedule follow- up with your Gas Systems Worker. ) Documented By: Rusty Amor MD 06/25/21 1326 Signed By: <Electronically signed by Rusty Amor MD> 06/25/21 1330 [facility] Work Phone: Evaluation note* Diagnosis Chest pain, unspecified type- Primary PND (paroxysmal nocturnal dyspnea) Other dyspnea and respiratory abnormality documented in this encounter [facility]* Diagnosis Onset Date Resolution Status CAD (coronary artery disease) acuteChronic kidney diseaseacuteDepressionacuteDiabetesacuteFibromyalgiaacute GERD (gastroesophageal reflux disease)acuteHTN (hypertension)acuteNSTEMI (non-ST elevated myocardial infarction)acute [facility] Work Phone: Evaluation note* Diagnosis Type 2 diabetes mellitus with hyperglycemia, without long-term current use of insulin ([facility])- Primary Benign essential hypertension ([facility]) Essential hypertension, benign Primary osteoarthritis of both knees Fibromyalgia Unspecified myalgia and myositis Major depressive disorder, recurrent episode, mild (HCC) ([facility]) Major depressive disorder, recurrent episode, mild Generalized anxiety disorder ([facility]) Generalized anxiety disorder Chronic diastolic heart failure ([facility]) Chronic diastolic heart failure Gastroesophageal reflux disease without esophagitis Esophageal reflux Encounter for long-term (current) use of medications Encounter for long-term (current) use of other medications Dyslipidemia ([facility]) Other and unspecified hyperlipidemia Vitamin D deficiency Type 2 diabetes mellitus with hyperglycemia, without long-term current use of insulin ([facility])- Primary Benign essential hypertension ([facility]/HCC) Essential hypertension, benign Chronic diastolic heart failure ([facility]) Chronic diastolic heart failure Major depressive disorder, recurrent episode, mild (HCC) ([facility]) Major depressive disorder, recurrent episode, mild Generalized anxiety disorder ([facility]) Generalized anxiety disorder Fibromyalgia Unspecified myalgia and myositis Gastroesophageal reflux disease without esophagitis Esophageal reflux Primary insomnia Persistent disorder of initiating or maintaining sleep Primary osteoarthritis of both knees Stage 3b chronic kidney disease (CKD) ([facility]) Dyslipidemia ([facility]) Other and unspecified hyperlipidemia Encounter for long-term (current) use of medications Encounter for long-term (current) use of other medications Obesity (BMI 30-39.9) Acute UTI Urinary tract infection, site not specified Skin candidiasis Candidiasis of skin and nails CAD in [place] artery ([facility]) Type 2 diabetes mellitus with diabetic chronic kidney disease ([facility]) Primary insomnia Persistent disorder of initiating or maintaining sleep documented in this encounter [facility] HealthcareEvaluation note* Diagnosis Type 2 diabetes mellitus with hyperglycemia, without long-term current use of insulin ([facility])- Primary Benign essential hypertension ([facility]) Essential hypertension, benign Primary osteoarthritis of both knees Fibromyalgia Unspecified myalgia and myositis Major depressive disorder, recurrent episode, mild (HCC) ([facility]) Major depressive disorder, recurrent episode, mild Generalized anxiety disorder ([facility]) Generalized anxiety disorder Chronic diastolic heart failure ([facility]) Chronic diastolic heart failure Gastroesophageal reflux disease without esophagitis Esophageal reflux Encounter for long-term (current) use of medications Encounter for long-term (current) use of other medications Dyslipidemia ([facility]) Other and unspecified hyperlipidemia Vitamin D deficiency Type 2 diabetes mellitus with hyperglycemia, without long-term current use of insulin ([facility])- Primary Benign essential hypertension ([facility]) Essential hypertension, benign Chronic diastolic heart failure ([facility]) Chronic diastolic heart failure Major depressive disorder, recurrent episode, mild (HCC) [place] [place] Major depressive disorder, recurrent episode, mild Generalized anxiety disorder ([facility]) Generalized anxiety disorder Fibromyalgia Unspecified myalgia and myositis Gastroesophageal reflux disease without esophagitis Esophageal reflux Primary insomnia Persistent disorder of initiating or maintaining sleep Primary osteoarthritis of both knees Stage 3b chronic kidney disease (CKD) ([facility]) Dyslipidemia ([facility]) Other and unspecified hyperlipidemia Encounter for long-term (current) use of medications Encounter for long-term (current) use of other medications Obesity (BMI 30-39.9) Acute UTI Urinary tract infection, site not specified Skin candidiasis Candidiasis of skin and nails CAD in [place] ([facility]) Type 2 diabetes mellitus with diabetic chronic kidney disease [place] [place] Primary osteoarthritis of both knees documented in this encounter [facility] HealthcareEvaluation note* Diagnosis Type 2 diabetes mellitus with hyperglycemia, without long-term current use of insulin [place] [place] Primary Benign essential hypertension ([facility]) Essential hypertension, benign Chronic diastolic heart failure ([facility]) Chronic diastolic heart failure Major depressive disorder, recurrent episode, mild (HCC) ([facility]) Major depressive disorder, recurrent episode, mild Generalized anxiety disorder ([facility]) Generalized anxiety disorder Fibromyalgia Unspecified myalgia and myositis Gastroesophageal reflux disease without esophagitis Esophageal reflux Primary insomnia Persistent disorder of initiating or maintaining sleep Primary osteoarthritis of both knees Stage 3b chronic kidney disease (CKD) ([facility]) Dyslipidemia ([facility]) Other and unspecified hyperlipidemia Encounter for long-term (current) use of medications Encounter for long-term (current) use of other medications Obesity (BMI 30-39.9) Acute UTI Urinary tract infection, site not specified Skin candidiasis Candidiasis of skin and nails CAD in [place] ([facility]) Type 2 diabetes mellitus with diabetic chronic kidney disease ([facility]) documented in this encounter [facility] HealthcareEvaluation note* Diagnosis Type 2 diabetes mellitus with hyperglycemia, without long-term current use of insulin ([facility])- Primary Benign essential hypertension ([facility]) Essential hypertension, benign Primary osteoarthritis of both knees Fibromyalgia Unspecified myalgia and myositis Major depressive disorder, recurrent episode, mild (HCC) ([facility]) Major depressive disorder, recurrent episode, mild Generalized anxiety disorder ([facility]) Generalized anxiety disorder Chronic diastolic heart failure ([facility]) Chronic diastolic heart failure Gastroesophageal reflux disease without esophagitis Esophageal reflux Encounter for long-term (current) use of medications Encounter for long-term (current) use of other medications Dyslipidemia ([facility]) Other and unspecified hyperlipidemia Vitamin D deficiency Type 2 diabetes mellitus with hyperglycemia, without long-term current use of insulin [place] [place] Primary Benign essential hypertension ([facility]) Essential hypertension, benign Chronic diastolic heart failure ([facility]) Chronic diastolic heart failure Major depressive disorder, recurrent episode, mild (HCC) ([facility]) Major depressive disorder, recurrent episode, mild Generalized anxiety disorder ([facility]) Generalized anxiety disorder Fibromyalgia Unspecified myalgia and myositis Gastroesophageal reflux disease without esophagitis Esophageal reflux Primary insomnia Persistent disorder of initiating or maintaining sleep Primary osteoarthritis of both knees Stage 3b chronic kidney disease (CKD) ([facility]) Dyslipidemia ([facility]) Other and unspecified hyperlipidemia Encounter for long-term (current) use of medications Encounter for long-term (current) use of other medications Obesity (BMI 30-39.9) Acute UTI Urinary tract infection, site not specified Skin candidiasis Candidiasis of skin and nails CAD in [place] ([facility]) Type 2 diabetes mellitus with diabetic chronic kidney disease ([facility]) Type 2 diabetes mellitus without complication, unspecified whether buttermaker continuous churn insulin use [place] [place] Primary Pain due to onychomycosis of toenails of both feet Venous insufficiency Unspecified venous (peripheral) insufficiency documented in this encounter [facility] HealthcareEvaluation note* Diagnosis Type 2 diabetes mellitus with hyperglycemia, without long-term current use of insulin ([facility])- Primary Benign essential hypertension ([facility]) Essential hypertension, benign Primary osteoarthritis of both knees Fibromyalgia Unspecified myalgia and myositis Major depressive disorder, recurrent episode, mild (HCC) ([facility]) Major depressive disorder, recurrent episode, mild Generalized anxiety disorder ([facility]) Generalized anxiety disorder Chronic diastolic heart failure ([facility]) Chronic diastolic heart failure Gastroesophageal reflux disease without esophagitis Esophageal reflux Encounter for long-term (current) use of medications Encounter for long-term (current) use of other medications Dyslipidemia ([facility]) Other and unspecified hyperlipidemia Vitamin D deficiency Type 2 diabetes mellitus with hyperglycemia, without long-term current use of insulin ([facility])- Primary Benign essential hypertension ([facility]) Essential hypertension, benign Chronic diastolic heart failure ([facility]) Chronic diastolic heart failure Major depressive disorder, recurrent episode, mild (HCC) ([facility]) Major depressive disorder, recurrent episode, mild Generalized anxiety disorder ([facility]) Generalized anxiety disorder Fibromyalgia Unspecified myalgia and myositis Gastroesophageal reflux disease without esophagitis Esophageal reflux Primary insomnia Persistent disorder of initiating or maintaining sleep Primary osteoarthritis of both knees Stage 3b chronic kidney disease (CKD) ([facility]) Dyslipidemia ([facility]) Other and unspecified hyperlipidemia Encounter for long-term (current) use of medications Encounter for long-term (current) use of other medications Obesity (BMI 30-39.9) Acute UTI Urinary tract infection, site not specified Skin candidiasis Candidiasis of skin and nails CAD in [place] ([facility]) Type 2 diabetes mellitus with diabetic chronic kidney disease ([facility]) Primary osteoarthritis of both knees documented in this encounter [facility] HealthcareEvaluation note* Diagnosis Type 2 diabetes mellitus with hyperglycemia, without long-term current use of insulin ([facility])- Primary Benign essential hypertension ([facility]) Essential hypertension, benign Primary osteoarthritis of both knees Fibromyalgia Unspecified myalgia and myositis Major depressive disorder, recurrent episode, mild (HCC) ([facility]) Major depressive disorder, recurrent episode, mild Generalized anxiety disorder ([facility]) Generalized anxiety disorder Chronic diastolic heart failure ([facility]) Chronic diastolic heart failure Gastroesophageal reflux disease without esophagitis Esophageal reflux Encounter for long-term (current) use of medications Encounter for long-term (current) use of other medications Dyslipidemia ([facility]) Other and unspecified hyperlipidemia Vitamin D deficiency Type 2 diabetes mellitus with hyperglycemia, without long-term current use of insulin ([facility])- Primary Benign essential hypertension ([facility]) Essential hypertension, benign Chronic diastolic heart failure ([facility]) Chronic diastolic heart failure Major depressive disorder, recurrent episode, mild (HCC) ([facility]) Major depressive disorder, recurrent episode, mild Generalized anxiety disorder ([facility]) Generalized anxiety disorder Fibromyalgia Unspecified myalgia and myositis Gastroesophageal reflux disease without esophagitis Esophageal reflux Primary insomnia Persistent disorder of initiating or maintaining sleep Primary osteoarthritis of both knees Stage 3b chronic kidney disease (CKD) ([facility]) Dyslipidemia ([facility]) Other and unspecified hyperlipidemia Encounter for long-term (current) use of medications Encounter for long-term (current) use of other medications Obesity (BMI 30-39.9) Acute UTI Urinary tract infection, site not specified Skin candidiasis Candidiasis of skin and nails CAD in [place] ([facility]) Type 2 diabetes mellitus with diabetic chronic kidney disease ([facility]) Left elbow pain- Primary Pain in joint, upper arm Type 2 diabetes mellitus with hyperglycemia, without long-term current use of insulin ([facility]) Benign essential hypertension ([facility]) Essential hypertension, benign Chronic diastolic heart failure ([facility]) Chronic diastolic heart failure Encounter for long-term (current) use of medications Encounter for long-term (current) use of other medications Primary osteoarthritis of both knees Stage 3b chronic kidney disease (CKD) ([facility]) Dyslipidemia ([facility]) Other and unspecified hyperlipidemia Class 1 obesity due to excess calories with serious comorbidity and body mass index (BMI) of 33.0 to 33.9 in adult Type 2 diabetes mellitus with diabetic chronic kidney disease ([facility]) documented in this encounter [facility] HealthcareEvaluation note* Diagnosis Type 2 diabetes mellitus with hyperglycemia, without long-term current use of insulin ([facility])- Primary Benign essential hypertension ([facility]) Essential hypertension, benign Primary osteoarthritis of both knees Fibromyalgia Unspecified myalgia and myositis Major depressive disorder, recurrent episode, mild (HCC) ([facility]) Major depressive disorder, recurrent episode, mild Generalized anxiety disorder ([facility]) Generalized anxiety disorder Chronic diastolic heart failure ([facility] Chronic diastolic heart failure Gastroesophageal reflux disease without esophagitis Esophageal reflux Encounter for long-term (current) use of medications Encounter for long-term (current) use of other medications Dyslipidemia ([facility]) Other and unspecified hyperlipidemia Vitamin D deficiency Type 2 diabetes mellitus with hyperglycemia, without long-term current use of insulin ([facility])- Primary Benign essential hypertension ([facility]) Essential hypertension, benign Chronic diastolic heart failure ([facility]) Chronic diastolic heart failure Major depressive disorder, recurrent episode, mild (HCC) ([facility]) Major depressive disorder, recurrent episode, mild Generalized anxiety disorder ([facility]) Generalized anxiety disorder Fibromyalgia Unspecified myalgia and myositis Gastroesophageal reflux disease without esophagitis Esophageal reflux Primary insomnia Persistent disorder of initiating or maintaining sleep Primary osteoarthritis of both knees Stage 3b chronic kidney disease (CKD) ([facility]) Dyslipidemia ([facility]) Other and unspecified hyperlipidemia Encounter for long-term (current) use of medications Encounter for long-term (current) use of other medications Obesity (BMI 30-39.9) Acute UTI Urinary tract infection, site not specified Skin candidiasis Candidiasis of skin and nails CAD in [place] ([facility]) Type 2 diabetes mellitus with diabetic chronic kidney disease ([facility]) Left elbow pain- Primary Pain in joint, upper arm Type 2 diabetes mellitus with hyperglycemia, without long-term current use of insulin ([facility]) Benign essential hypertension ([facility]) Essential hypertension, benign Chronic diastolic heart failure ([facility]) Chronic diastolic heart failure Encounter for long-term (current) use of medications Encounter for long-term (current) use of other medications Primary osteoarthritis of both knees Stage 3b chronic kidney disease (CKD) ([facility]) Dyslipidemia ([facility]) Other and unspecified hyperlipidemia Class 1 obesity due to excess calories with serious comorbidity and body mass index (BMI) of 33.0 to 33.9 in adult Type 2 diabetes mellitus with diabetic chronic kidney disease ([facility]) Primary insomnia Persistent disorder of initiating or maintaining sleep documented in this encounter [facility] HealthcareEvaluation note* Diagnosis Chronic diastolic congestive heart failure ([facility])- Primary Other fracture of unspecified lumbar vertebra, subsequent encounter for fracture with routine healing Essential hypertension Unspecified essential hypertension Type 2 diabetes mellitus with stage 3b chronic kidney disease, with long-term current use of insulin ([facility] [place]) documented [facility] encounter [facility]* Diagnosis Chronic diastolic congestive heart failure ([facility])- Primary Type 2 diabetes mellitus with stage 3b chronic kidney disease, with long-term current use of insulin ([facility] [place]) Other fracture of unspecified lumbar vertebra, subsequent encounter for fracture with routine healing Generalized anxiety disorder documented in this encounter [facility]* Diagnosis Acute combined systolic and diastolic heart failure ([facility])- Primary Acute combined systolic and diastolic heart failure Other fracture of unspecified lumbar vertebra, subsequent encounter for fracture with routine healing Urinary tract infection with hematuria, site unspecified Pneumonia due to infectious organism, unspecified laterality, unspecified part of lung Essential hypertension Unspecified essential hypertension Type 2 diabetes mellitus with stage 3b chronic kidney disease, with long-term current use of insulin ([facility] [place]) Iron deficiency anemia, unspecified iron deficiency anemia type Personal history of transient ischemic attack (TIA), and cerebral infarction without residual deficits Recurrent major depressive disorder, in remission Generalized anxiety disorder Weakness Other malaise and fatigue Old myocardial infarction History of falling documented in this encounter [facility]* Diagnosis Chronic diastolic congestive heart failure ([facility])- Primary Essential hypertension Unspecified essential hypertension Other fracture of unspecified lumbar vertebra, subsequent encounter for fracture with routine healing Generalized anxiety disorder documented in this encounter [facility]* Diagnosis Type 2 diabetes mellitus with hyperglycemia, without long-term current use of insulin ([facility])- Primary Benign essential hypertension ([facility] [place]) Essential hypertension, benign Primary osteoarthritis of both knees Fibromyalgia Unspecified myalgia and myositis Major depressive disorder, recurrent episode, mild (HCC) ([facility] [place]) Major depressive disorder, recurrent episode, mild Generalized anxiety disorder ([facility] [place]) Generalized anxiety disorder Chronic diastolic heart failure ([facility] [place]) Chronic diastolic heart failure Gastroesophageal reflux disease without esophagitis Esophageal reflux Encounter for long-term (current) use of medications Encounter for long-term (current) use of other medications Dyslipidemia ([facility] [place]) Other and unspecified hyperlipidemia Vitamin D deficiency Type 2 diabetes mellitus with hyperglycemia, without long-term current use of insulin ([facility] [place])- Primary Benign essential hypertension ([facility] [place]) Essential hypertension, benign Chronic diastolic heart failure ([facility] [place]) Chronic diastolic heart failure Major depressive disorder, recurrent episode, mild (HCC) ([facility] [place]) Major depressive disorder, recurrent episode, mild Generalized anxiety disorder ([facility] [place]) Generalized anxiety disorder Fibromyalgia Unspecified myalgia and myositis Gastroesophageal reflux disease without esophagitis Esophageal reflux Primary insomnia Persistent disorder of initiating or maintaining sleep Primary osteoarthritis of both knees Stage 3b chronic kidney disease (CKD) ([facility] [place]) Dyslipidemia ([facility] [place]) Other and unspecified hyperlipidemia Encounter for long-term (current) use of medications Encounter for long-term (current) use of other medications Obesity (BMI 30-39.9) Acute UTI Urinary tract infection, site not specified Skin candidiasis Candidiasis of skin and nails CAD in [place] artery ([facility] [place]) Type 2 diabetes mellitus with diabetic chronic kidney disease ([facility] [place]) Left elbow pain- Primary Pain in joint, upper arm Type 2 diabetes mellitus with hyperglycemia, without long-term current use of insulin ([facility] [place]) Benign essential hypertension ([facility] [place]) Essential hypertension, benign Chronic diastolic heart failure ([facility] [place]) Chronic diastolic heart failure Encounter for long-term (current) use of medications Encounter for long-term (current) use of other medications Primary osteoarthritis of both knees Stage 3b chronic kidney disease (CKD) ([facility] [place]) Dyslipidemia ([facility] [place]) Other and unspecified hyperlipidemia Class 1 obesity due to excess calories with serious comorbidity and body mass index (BMI) of 33.0 to 33.9 in adult Type 2 diabetes mellitus with diabetic chronic kidney disease ([facility] [place]) Medicare annual wellness visit, subsequent- Primary Upper respiratory tract infection, unspecified type Benign essential hypertension ([facility] [place]) Essential hypertension, benign Type 2 diabetes mellitus with hyperglycemia, without long-term current use of insulin ([facility] [place]) documented in this encounter [facility] HealthcareEvaluation note* Diagnosis Type 2 diabetes mellitus with hyperglycemia, without long-term current use of insulin ([facility] [place])- Primary Benign essential hypertension ([facility] [place]) Essential hypertension, benign Primary osteoarthritis of both knees Fibromyalgia Unspecified myalgia and myositis Major depressive disorder, recurrent episode, mild (HCC) ([facility] [place]) Major depressive disorder, recurrent episode, mild Generalized anxiety disorder ([facility] [place] Generalized anxiety disorder Chronic diastolic heart failure ([facility] [place]) Chronic diastolic heart failure Gastroesophageal reflux disease without esophagitis Esophageal reflux Encounter for long-term (current) use of medications Encounter for long-term (current) use of other medications Dyslipidemia ([facility] [place]) Other and unspecified hyperlipidemia Vitamin D deficiency Type 2 diabetes mellitus with hyperglycemia, without long-term current use of insulin ([facility] [place])- Primary Benign essential hypertension ([facility] [place]) Essential hypertension, benign Chronic diastolic heart failure ([facility] [place]) Chronic diastolic heart failure Major depressive disorder, recurrent episode, mild (HCC) ([facility] [place]) Major depressive disorder, recurrent episode, mild Generalized anxiety disorder ([facility] [place]) Generalized anxiety disorder Fibromyalgia Unspecified myalgia and myositis Gastroesophageal reflux disease without esophagitis Esophageal reflux Primary insomnia Persistent disorder of initiating or maintaining sleep Primary osteoarthritis of both knees Stage 3b chronic kidney disease (CKD) ([facility] [place]) Dyslipidemia ([facility] [place]) Other and unspecified hyperlipidemia Encounter for long-term (current) use of medications Encounter for long-term (current) use of other medications Obesity (BMI 30-39.9) Acute UTI Urinary tract infection, site not specified Skin candidiasis Candidiasis of skin and nails CAD in [place] artery ([facility] [place]) Type 2 diabetes mellitus with diabetic chronic kidney disease ([facility] [place]) Left elbow pain- Primary Pain in joint, upper arm Type 2 diabetes mellitus with hyperglycemia, without long-term current use of insulin ([facility] [place]) Benign essential hypertension ([facility] [place]) Essential hypertension, benign Chronic diastolic heart failure ([facility] [place]) Chronic diastolic heart failure Encounter for long-term (current) use of medications Encounter for long-term (current) use of other medications Primary osteoarthritis of both knees Stage 3b chronic kidney disease (CKD) ([facility] [place]) Dyslipidemia ([facility] [place]) Other and unspecified hyperlipidemia Class 1 obesity due to excess calories with serious comorbidity and body mass index (BMI) of 33.0 to 33.9 in adult Type 2 diabetes mellitus with diabetic chronic kidney disease ([facility] [place]) Medicare annual wellness visit, subsequent- Primary Upper respiratory tract infection, unspecified type Benign essential hypertension ([facility] [place]) Essential hypertension, benign Type 2 diabetes mellitus with hyperglycemia, without long-term current use of insulin ([facility] [place]) Type 2 diabetes mellitus with hyperglycemia, without long-term current use of insulin ([facility] [place])- Primary documented in this encounter [facility] HealthcareEvaluation note* Diagnosis Type 2 diabetes mellitus with hyperglycemia, without long-term current use of insulin ([facility] [place])- Primary Benign essential hypertension ([facility] [place]) Essential hypertension, benign Primary osteoarthritis of both knees Fibromyalgia Unspecified myalgia and myositis Major depressive disorder, recurrent episode, mild (HCC) ([facility] [place]) Major depressive disorder, recurrent episode, mild Generalized anxiety disorder ([facility] [place]) Generalized anxiety disorder Chronic diastolic heart failure ([facility] [place]) Chronic diastolic heart failure Gastroesophageal reflux disease without esophagitis Esophageal reflux Encounter for long-term (current) use of medications Encounter for long-term (current) use of other medications Dyslipidemia ([facility] [place]) Other and unspecified hyperlipidemia Vitamin D deficiency Type 2 diabetes mellitus with hyperglycemia, without long-term current use of insulin ([facility] [place])- Primary Benign essential hypertension ([facility] [place]) Essential hypertension, benign Chronic diastolic heart failure ([facility] [place]) Chronic diastolic heart failure Major depressive disorder, recurrent episode, mild (HCC) ([facility] [place]) Major depressive disorder, recurrent episode, mild Generalized anxiety disorder ([facility] [place]) Generalized anxiety disorder Fibromyalgia Unspecified myalgia and myositis Gastroesophageal reflux disease without esophagitis Esophageal reflux Primary insomnia Persistent disorder of initiating or maintaining sleep Primary osteoarthritis of both knees Stage 3b chronic kidney disease (CKD) ([facility] [place]) Dyslipidemia ([facility] [place]) Other and unspecified hyperlipidemia Encounter for long-term (current) use of medications Encounter for long-term (current) use of other medications Obesity (BMI 30-39.9) Acute UTI Urinary tract infection, site not specified Skin candidiasis Candidiasis of skin and nails CAD in [place] artery ([facility] [place]) Type 2 diabetes mellitus with diabetic chronic kidney disease ([facility] [place]) Left elbow pain- Primary Pain in joint, upper arm Type 2 diabetes mellitus with hyperglycemia, without long-term current use of insulin ([facility] [place]) Benign essential hypertension ([facility] [place]) Essential hypertension, benign Chronic diastolic heart failure ([facility] [place]) Chronic diastolic heart failure Encounter for long-term (current) use of medications Encounter for long-term (current) use of other medications Primary osteoarthritis of both knees Stage 3b chronic kidney disease (CKD) ([facility] [place]) Dyslipidemia ([facility] [place]) Other and unspecified hyperlipidemia Class 1 obesity due to excess calories with serious comorbidity and body mass index (BMI) of 33.0 to 33.9 in adult Type 2 diabetes mellitus with diabetic chronic kidney disease ([facility] [place]) Medicare annual wellness visit, subsequent- Primary Upper respiratory tract infection, unspecified type Benign essential hypertension ([facility] [place]) Essential hypertension, benign Type 2 diabetes mellitus with hyperglycemia, without long-term current use of insulin ([facility] [place]) Type 2 diabetes mellitus with hyperglycemia, without long-term current use of insulin ([facility] [place]) Chronic diastolic heart failure ([facility] [place]) Chronic diastolic heart failure documented in this encounter [facility] HealthcareEvaluation note* Diagnosis Type 2 diabetes mellitus with hyperglycemia, without long-term current use of insulin ([facility] [place])- Primary Benign essential hypertension ([facility] [place]) Essential hypertension, benign Primary osteoarthritis of both knees Fibromyalgia Unspecified myalgia and myositis Major depressive disorder, recurrent episode, mild (HCC) ([facility] [place]) Major depressive disorder, recurrent episode, mild Generalized anxiety disorder ([facility] [place]) Generalized anxiety disorder Chronic diastolic heart failure ([facility] [place]) Chronic diastolic heart failure Gastroesophageal reflux disease without esophagitis Esophageal reflux Encounter for long-term (current) use of medications Encounter for long-term (current) use of other medications Dyslipidemia ([facility] [place]) Other and unspecified hyperlipidemia Vitamin D deficiency Type 2 diabetes mellitus with hyperglycemia, without long-term current use of insulin [place] [place] Primary Benign essential hypertension ([facility] [place]) Essential hypertension, benign Chronic diastolic heart failure ([facility] [place]) Chronic diastolic heart failure Major depressive disorder, recurrent episode, mild (HCC) [place] [place] Major depressive disorder, recurrent episode, mild Generalized anxiety disorder ([facility] [place]) Generalized anxiety disorder Fibromyalgia Unspecified myalgia and myositis Gastroesophageal reflux disease without esophagitis Esophageal reflux Primary insomnia Persistent disorder of initiating or maintaining sleep Primary osteoarthritis of both knees Stage 3b chronic kidney disease (CKD) ([facility] [place]) Dyslipidemia ([facility] [place]) Other and unspecified hyperlipidemia Encounter for long-term (current) use of medications Encounter for long-term (current) use of other medications Obesity (BMI 30-39.9) Acute UTI Urinary tract infection, site not specified Skin candidiasis Candidiasis of skin and nails CAD in [place] artery ([facility] [place]) Type 2 diabetes mellitus with diabetic chronic kidney disease ([facility] [place]) Left elbow pain- Primary Pain in joint, upper arm Type 2 diabetes mellitus with hyperglycemia, without long-term current use of insulin [place] [place] Benign essential hypertension [place] [place] Essential hypertension, benign Chronic diastolic heart failure ([facility] [place]) Chronic diastolic heart failure Encounter for long-term (current) use of medications Encounter for long-term (current) use of other medications Primary osteoarthritis of both knees Stage 3b chronic kidney disease (CKD) ([facility] [place]) Dyslipidemia ([facility] [place]) Other and unspecified hyperlipidemia Class 1 obesity due to excess calories with serious comorbidity and body mass index (BMI) of 33.0 to 33.9 in adult Type 2 diabetes mellitus with diabetic chronic kidney disease ([facility] [place]) Medicare annual wellness visit, subsequent- Primary Upper respiratory tract infection, unspecified type Benign essential hypertension ([facility] [place]) Essential hypertension, benign Type 2 diabetes mellitus with hyperglycemia, without long-term current use of insulin ([facility] [place]) Primary osteoarthritis of both knees documented in this encounter [facility] HealthcareEvaluation note* Diagnosis Type 2 diabetes mellitus with hyperglycemia, without long-term current use of insulin ([facility] [place])- Primary Benign essential hypertension ([facility] [place]) Essential hypertension, benign Primary osteoarthritis of both knees Fibromyalgia Unspecified myalgia and myositis Major depressive disorder, recurrent episode, mild (HCC) ([facility] [place]) Major depressive disorder, recurrent episode, mild Generalized anxiety disorder ([facility] [place]) Generalized anxiety disorder Chronic diastolic heart failure ([facility] [place]) Chronic diastolic heart failure Gastroesophageal reflux disease without esophagitis Esophageal reflux Encounter for long-term (current) use of medications Encounter for long-term (current) use of other medications Dyslipidemia ([facility] [place]) Other and unspecified hyperlipidemia Vitamin D deficiency Type 2 diabetes mellitus with hyperglycemia, without long-term current use of insulin ([facility] [place])- Primary Benign essential hypertension ([facility] [place]) Essential hypertension, benign Chronic diastolic heart failure ([facility] [place]) Chronic diastolic heart failure Major depressive disorder, recurrent episode, mild (HCC) ([facility] [place]) Major depressive disorder, recurrent episode, mild Generalized anxiety disorder ([facility] [place]) Generalized anxiety disorder Fibromyalgia Unspecified myalgia and myositis Gastroesophageal reflux disease without esophagitis Esophageal reflux Primary insomnia Persistent disorder of initiating or maintaining sleep Primary osteoarthritis of both knees Stage 3b chronic kidney disease (CKD) ([facility] [place]) Dyslipidemia ([facility] [place]) Other and unspecified hyperlipidemia Encounter for long-term (current) use of medications Encounter for long-term (current) use of other medications Obesity (BMI 30-39.9) Acute UTI Urinary tract infection, site not specified Skin candidiasis Candidiasis of skin and nails CAD in [place] artery ([facility] [place]) Type 2 diabetes mellitus with diabetic chronic kidney disease ([facility] [place]) Left elbow pain- Primary Pain in joint, upper arm Type 2 diabetes mellitus with hyperglycemia, without long-term current use of insulin ([facility] [place]) Benign essential hypertension ([facility] [place]) Essential hypertension, benign Chronic diastolic heart failure ([facility] [place]) Chronic diastolic heart failure Encounter for long-term (current) use of medications Encounter for long-term (current) use of other medications Primary osteoarthritis of both knees Stage 3b chronic kidney disease (CKD) ([facility] [place]) Dyslipidemia ([facility] [place]) Other and unspecified hyperlipidemia Class 1 obesity due to excess calories with serious comorbidity and body mass index (BMI) of 33.0 to 33.9 in adult Type 2 diabetes mellitus with diabetic chronic kidney disease ([facility] [place]) Medicare annual wellness visit, subsequent- Primary Upper respiratory tract infection, unspecified type Benign essential hypertension ([facility] [place]) Essential hypertension, benign Type 2 diabetes mellitus with hyperglycemia, without long-term current use of insulin ([facility] [place]) Type 2 diabetes mellitus without complication, unspecified whether buttermaker continuous churn insulin use- Primary Pain due to onychomycosis of toenails of both feet Venous insufficiency Unspecified venous (peripheral) insufficiency documented in this encounter [facility] HealthcareEvaluation note* Diagnosis Type 2 diabetes mellitus with hyperglycemia, without long-term current use of insulin ([facility])- Primary Benign essential hypertension Essential hypertension, benign [...] hyperglycemia, without long-term current use of insulin ([facility])- Primary Benign essential hypertension Essential hypertension, benign [...] knees Stage 3b chronic kidney disease (CKD) ([facility] [place] Dyslipidemia Other and unspecified hyperlipidemia Encounter for long-term (current) use of medications Encounter for long-term (current) use of other medications Obesity (BMI 30-39.9) Acute UTI Urinary tract infection, site not specified Skin candidiasis Candidiasis of skin and nails CAD in [place] 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 ([facility]) Left elbow pain- Primary Pain in joint, upper arm Type 2 diabetes mellitus with hyperglycemia, without long-term current use of insulin ([facility]) Benign essential hypertension Essential hypertension, benign Chronic diastolic heart failure (HCC) Chronic diastolic heart failure Encounter for long-term (current) use of medications Encounter for long-term (current) use of other medications Primary osteoarthritis of both knees Stage 3b chronic kidney disease (CKD) ([facility]) Dyslipidemia Other and unspecified hyperlipidemia Class 1 obesity due to excess calories with serious comorbidity and body mass index (BMI) of 33.0 to 33.9 in adult Type 2 diabetes mellitus with diabetic chronic kidney disease ([facility]) Medicare annual wellness visit, subsequent- Primary Upper [...] sleep Stage 3b chronic kidney disease (CKD) ([facility]) documented in this encounter [facility] HealthcareEvaluation note* Diagnosis Type 2 diabetes mellitus with hyperglycemia, without long-term current use of insulin ([facility])- Primary Benign essential hypertension Essential hypertension, benign [...] hyperglycemia, without long-term current use of insulin ([facility])- Primary Benign essential hypertension Essential hypertension, benign [...] knees Stage 3b chronic kidney disease (CKD) ([facility]) Dyslipidemia Other and unspecified hyperlipidemia Encounter for long-term (current) use of medications Encounter for long-term (current) use of other medications Obesity (BMI 30-39.9) Acute UTI Urinary tract infection, site not specified Skin candidiasis Candidiasis of skin and nails CAD in [place] 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 (HCC) Left elbow pain- Primary Pain in joint, upper arm Type 2 diabetes mellitus with hyperglycemia, without long-term current use of insulin ([facility]) Benign essential hypertension Essential hypertension, benign Chronic diastolic heart failure (HCC) Chronic diastolic heart failure Encounter for long-term (current) use of medications Encounter for long-term (current) use of other medications Primary osteoarthritis of both knees Stage 3b chronic kidney disease (CKD) ([facility]) Dyslipidemia Other and unspecified hyperlipidemia Class 1 obesity due to excess calories with serious comorbidity and body mass index (BMI) of 33.0 to 33.9 in adult Type 2 diabetes mellitus with diabetic chronic kidney disease ([facility]) Medicare annual wellness visit, subsequent- Primary Upper respiratory tract infection, unspecified type Benign essential hypertension Essential hypertension, benign Type 2 diabetes mellitus with hyperglycemia, without long-term current use of insulin ([facility]) Type 2 diabetes mellitus with hyperglycemia, without long-term current use of insulin ([facility])- Primary Benign essential hypertension Essential hypertension, benign Fibromyalgia Unspecified myalgia and myositis Major depressive disorder, recurrent episode, mild Major depressive disorder, recurrent episode, mild Generalized anxiety disorder Generalized anxiety disorder Chronic diastolic heart failure (HCC) Chronic diastolic heart failure Primary insomnia Persistent disorder of initiating or maintaining sleep Stage 3b chronic kidney disease (CKD) ([facility]) Primary insomnia Persistent disorder of initiating or maintaining sleep Type 2 diabetes mellitus without complication, unspecified whether penitentiary insulin use ([facility])- Primary Pain due to onychomycosis of toenails of both feet Venous insufficiency Unspecified venous (peripheral) insufficiency documented in this encounter [facility] HealthcareEvaluation note* Diagnosis Type 2 diabetes mellitus with hyperglycemia, without long-term current use of insulin ([facility])- Primary Benign essential hypertension Essential hypertension, benign [...] hyperglycemia, without long-term current use of insulin ([facility])- Primary Benign essential hypertension Essential hypertension, benign [...] knees Stage 3b chronic kidney disease (CKD) ([facility]) Dyslipidemia Other and unspecified hyperlipidemia Encounter for long-term (current) use of medications Encounter for long-term (current) use of other medications Obesity (BMI 30-39.9) Acute UTI Urinary tract infection, site not specified Skin candidiasis Candidiasis of skin and nails CAD in [place] 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 ([facility]) Left elbow pain- Primary Pain in joint, upper arm Type 2 diabetes mellitus with hyperglycemia, without long-term current use of insulin ([facility]) Benign essential hypertension Essential hypertension, benign Chronic diastolic heart failure ([facility]) Chronic diastolic heart failure Encounter for long-term (current) use of medications Encounter for long-term (current) use of other medications Primary osteoarthritis of both knees Stage 3b chronic kidney disease (CKD) ([facility]) Dyslipidemia Other and unspecified hyperlipidemia Class 1 obesity due to excess calories with serious comorbidity and body mass index (BMI) of 33.0 to 33.9 in adult Type 2 diabetes mellitus with diabetic chronic kidney disease ([facility]) Medicare annual wellness visit, subsequent- Primary Upper respiratory tract infection, unspecified type Benign essential hypertension Essential hypertension, benign Type 2 diabetes mellitus with hyperglycemia, without long-term current use of insulin ([facility]) Type 2 diabetes mellitus with hyperglycemia, without long-term current use of insulin ([facility])- Primary Benign essential hypertension Essential hypertension, benign Fibromyalgia Unspecified myalgia and myositis Major depressive disorder, recurrent episode, mild Major depressive disorder, recurrent episode, mild Generalized anxiety disorder Generalized anxiety disorder Chronic diastolic heart failure ([facility]) Chronic diastolic heart failure Primary insomnia Persistent disorder of initiating or maintaining sleep Stage 3b chronic kidney disease (CKD) ([facility]) Type 2 diabetes mellitus without complication, unspecified whether penitentiary insulin use ([facility])- Primary Pain due to onychomycosis of toenails of both feet Venous insufficiency Unspecified venous (peripheral) insufficiency documented in this encounter [facility] HealthcareEvaluation note* Diagnosis Closed fracture of right hip, initial encounter ([facility])- Primary Closed fracture of right hip, initial encounter ([facility]) Type 2 diabetes mellitus with stage 3b chronic kidney disease, with long-term current use of insulin ([facility]) [facility]* Diagnosis S/P hip hemiarthroplasty- Primary [facility]* Diagnosis Age-related osteoporosis with current pathological fracture with routine healing - Primary History of right hip hemiarthroplasty Closed fracture of neck of right femur, sequela [facility]* Initiate Home Health Time [...] doctor or pharmacist, without first calling the radial saw operator who implanted the stent. If you [...] weight lifting, stair steppers, etc. until the radial saw operator approves these activities. Check with the radial saw operator on your first follow-up visit. CALL YOUR PHYSICIAN at [phone]: -If bleeding should occur from the catheter insertion site- apply pressure to the site then immediately call us. -Report any fever, redness, drainage, increased swelling, or firmness at the catheter insertion site. Some bruising or slight swelling may be present at the time of discharge. -Should arm or leg become cold, numb, white, or blue, contact the radial saw operator immediately. -IF you should experience episodes [...] is recommended. Please call Central Scheduling at [phone] to schedule your appointment.] The attending radial saw operator or [facility] nurse clinician should provide you with specific instructions regarding activity, diet, medications, and further follow up for you. Follow the medication instructions provided on your discharge. If the dosages and instructions on this sheet differ from the dosage and instructions on the bottle, follow the instructions on the bottle. The [facility] is not responsible for incorrect prescription information provided by the patient during their visit. Do not stop your medications without consulting your health care provider. Please take the list with you to your next doctor's appointment. Home Health to manage care: - Full code - PT/OT eval and treat - [facility] Work Phone: InstructionsNot on filedocumented in this encounter [employer] SystemInstructionsNot on filedocumented in this encounter Pro[employer] Passports SystemInstructionsNot on filedocumented in this encounter [employer] Passports SystemInstructionsNot on filedocumented in this encounter [employer] SystemInstructionsNot on filedocumented in this encounter [employer] Summary Purpose Family History No Family History Records Found Relationship Condition Age at Onset Recorded Date/T tamiko Not Specified Diabetes mellitus Unknown Pulmonary emphysemaUnknownfatherCerebrovascular accident (CVA)Unknown Advance Directives No Advanced Directives Records Found Advance Directive Response Recorded Date/ Time Advance Directives No June 24, 2021 1:18am Date ActivatedDate SbsjwpixjysZirquamy15/8/2025 5:39 PM10 5:47 PMDate ActivatedDate WyridbgqujjUnimhrdp45/8/2025 5:39 PM10 5:47 PM Chief Complaint and Reason for Visit Chief Complaint Non Stemi Reason for Visit CAD (coronary artery disease) Chronic kidney disease Depression Diabetes Fibromyalgia GERD (gastroesophageal reflux disease) HTN (hypertension) NSTEMI (non-ST elevated myocardial infarction) Additional Source Comments INFORMATION SOURCE (unrecogn ized section and content) DATE CREATED AUTHOR 09/19/2017 [facility] DATE CREATED AUTHOR AUTHOR'S ORGANIZ ATION 11/23/2019 [facility] DATE CREATED AUTHOR AUTHOR'S ORGANIZ ATION 07/30/2021 [facility] DATE CREATED AUTHOR AUTHOR'S ORGANIZ ATION 03/25/2022 [facility] DATE CREATED AUTHOR AUTHOR'S ORGANIZ ATION 07/05/2022 [facility] DATE CREATED AUTHOR AUTHOR'S ORGANIZ ATION 07/18/2024 [facility] DATE CREATED AUTHOR AUTHOR'S ORGANIZ ATION 09/08/2024 [facility] DATE CREATED AUTHOR AUTHOR'S ORGANIZ ATION 09/08/2024 [facility] DATE CREATED AUTHOR AUTHOR'S ORGANIZ ATION 11/28/2024 [facility] DATE CREATED AUTHOR AUTHOR'S ORGANIZ ATION 12/12/2024 [facility] Reason for Visit (unrecogniz ed section and content) ReasonCommentsChest symptoms/complaintsReasonCommentsMed RefillReasonComments Follow-[id number] Foot CareDm nail careReasonCommentsFollow-upTbh er f/up 02/23/24Knee PainReasonCommentsMedicare Annual Wellness Visit Initial WELLNESSReasonCommentsDM Foot Caredmnail careReasonCommentsFollow-up3m f/up DizzinessNeck PainReasonCommentsDM Foot CareReasonCommentsFallSpecialtyDiagnoses / ProceduresReferred By ContactReferred To Contact Diagnoses Pre-op exam Closed fracture of right hip, initial encounter ([facility] Gonzalo Rolle MD [address] [place] [address] Phone: tel: fax: Referral IDStatusReasonStart DateExpiration DateVisits RequestedVisits [id number] R hip dylon (11/27), XR at [facility] transport will be waiting inwaiting room for [...] Date Amador Abdalla MD [address] [place] [address] PCP - GeneralFamily Medicine04/25/23Team MemberRelationshipSpecialtyStart DateEnd Date Amador Abdalla MD [address] [place] [address] PCP - GeneralFamily Medicine04/25/23Team MemberRelationshipSpecialtyStart DateEnd Date Amador Abdalla MD [address] [place] [address] PCP - GeneralFamily Medicine04/25/23Team MemberRelationshipSpecialtyStart DateEnd Date Amador Abdalla MD [address] [place] [address] PCP - GeneralFamily Medicine04/25/23Team MemberRelationshipSpecialtyStart DateEnd Date Amador Abdalla MD [address] [place] [address] PCP - GeneralFamily Medicine04/25/23Team MemberRelationshipSpecialtyStart DateEnd Date Amador Abdalla MD [address] [place] [address] PCP - GeneralFamily Medicine04/25/23Team MemberRelationshipSpecialtyStart DateEnd Date Amador Abdalla MD [address] [place] [address] PCP - GeneralFamily Medicine04/25/23Team MemberRelationshipSpecialtyStart DateEnd Date Amador Abdalla MD [address] [place] [address] PCP - GeneralFamily Medicine04/25/23 Carmina Garcia, [facility] Social [facility] Medicine02/28/24 Miguel Blank MA Family Medicine02/28/24Team MemberRelationshipSpecialtyStart DateEnd Date Amador Abdalla MD [address] [place] [address] PCP - GeneralFamily Medicine04/25/23 Carmina Garcia, [facility] Social Workermily Medicine02/28/24 Miguel Blank MA Family Medicine02/28/24Team MemberRelationshipSpecialtyStart DateEnd Date Amador Abdalla MD [address] [place] [address] PCP - GeneralFamily Medicine04/25/23 Carmina Garcia, [facility] Social Workermi Medicine02/28/24 Miguel Blank, YULY Family Medicine02/28/24Team MemberRelationshipSpecialtyStart DateEnd Date Amador Abdalla MD [address] [place] [address] PCP - GeneralFamily Medicine04/25/23 Carmina Garcia, [facility] Social Workermi Medicine02/28/24 Miguel Blank MA Family Medicine02/28/24Team MemberRelationshipSpecialtyStart DateEnd Date Amador Abdalla MD [address] [place] [address] PCP - GeneralFamily Medicine04/25/23 Carmina Garcia, [facility] Social Workermily Medicine02/28/24 Miguel Blank, YULY Family Medicine02/28/24Team MemberRelationshipSpecialtyStart DateEnd Date Amador Abdalla MD [address] [place] [address] PCP - GeneralFamily Medicine04/25/23 Carmina Garcia, [facility] Social WorkerFamily Medicine02/28/24 Miguel Blank MA Family Medicine02/28/24Team MemberRelationshipSpecialtyStart DateEnd Date Amador Abdalla MD PCP - GeneralFamily Zhivkzup70/27/21Team MemberRelationshipSpecialtyStart Date End Date Amador Abdalla MD PCP - GeneralFamily Jctytauk09/27/21Team MemberRelationshipSpecialtyStart Date End Date Amador Abdalla MD PCP - GeneralFamily Lwatwbfd14/27/21Team MemberRelationshipSpecialtyStart Date End Date Amador Abdalla MD [address] [place] [address] PCP - GeneralFamily Medicine04/25/23 Amador Abdalla MD [address] [place] [address] PCP - [place]02/20/24 Carmina Garcia, [facility] Social Workermily Medicine02/28/24 Miguel Blank MA Family Medicine02/28/24Team MemberRelationshipSpecialtyStart DateEnd Date Amador Abdalla MD [address] [place] [address] PCP - GeneralFamily Medicine04/25/23 Amador Abdalla MD [address] [place] [address] PCP - [place] EMERY02/20/24 Carmina Garcia, [facility] Social [facility] Medicine02/28/24 Miguel Blank MA [facility]02/28/24Team MemberRelationshipSpecialtyStart DateEnd Date Amador Abdalla MD [address] [place] [address] PCP - Generalmily Medicine04/25/23 Amador Abdalla MD [address] [place] [address] PCP - [place]02/20/24 Carmina Garcia, [facility] Social [facility]erF[facility] Medicine02/28/24 Miguel Blank MA [facility]02/28/24Team MemberRelationshipSpecialtyStart DateEnd Date Amador Abdalla MD [address] [place] [address] PCP - Generalmily Medicine04/25/23 Amador Abdalla MD [address] [place] [address] PCP - [place] EMERY02/20/24 Carmina Garcia, [facility] Social [facility] Medicine02/28/24 Miguel Blank MA Family [facility]02/28/24Team MemberRelationshipSpecialtyStart DateEnd Date Amador Abdalla MD [address] [place] [address] PCP - [facility] Medicine04/25/23 Amador Abdalla MD [address] [place] [address] PCP - [place]02/20/24 Carmina Garcia, [facility] Social [facility] Medicine02/28/24 Miguel Blank MA [facility]02/28/24Team MemberRelationshipSpecialtyStart DateEnd Date Amador Abdalla MD [address] [place] [address] PCP - [facility]04/25/23 Amador Abdalla MD [address] [place] [address] PCP - [place]02/20/24 Miguel Blank MA [address] [place] [address] [facility]02/28/24Team MemberRelationshipSpecialtyStart DateEnd Date Amador Abdalla MD [address] [place] [address] PCP - [facility]04/25/23 Amador Abdalla MD [address] [place] [address] PCP - [place]02/20/24 Miguel Blank MA [address] [place] [address] [facility]02/28/24Team MemberRelationshipSpecialtyStart DateEnd Date Amador Abdalla MD [address] [place] [address] PCP - Generalmi Medicine04/25/23 Amador Abdalla MD [address] [place] [address] PCP - [place]02/20/24 Miguel Blank MA [address] [place] [address] [facility]02/28/24Team MemberRelationshipSpecialtyStart DateEnd Date Amador Abdalla MD [address] [place] [address] PCP - [facility] Medicine04/25/23 Amador Abdalla MD [address] [place] [address] PCP - [place]02/20/24 Miguel Blank MA [address] [place] [address] [facility]02/28/24Team MemberRelationshipSpecialtyStart DateEnd Date Amador Abdalla MD [address] [place] [address] PCP - [facility] Medicine04/25/23 Amador Abdalla MD [address] [place] [address] PCP - [place]02/20/24 Miguel Blank, YULY [address] [place] [address] Family Medicine02/28/24Team MemberRelationshipSpecialtyStart DateEnd Date Amador Abdalla MD [address] [place] [address] [facility] - [facility] Battvbqm03/8/25Te MemberRelationshipSpecialtyStminden DateEnd Amador Abdalla MD [address] [place] [address] PCP - [facility] Fnzgxcfu84/8/25Te MemberRelationsFairmont Rehabilitation and Wellness CenterpecialtyStart DateEnd Date Amador Adballa MD [address] [place] [address] PCP - Generalmi Yahwdhws68/8/25 Scheduled Active and Recently Administ ered Medications [...] RN) * 0837 (Given - Provider: Terra Etienen, RN) * 1309 (Given - Provider: Terra Etienne, RN) * 1715 (Given - Provider: Terra Etienne, RN) * 0932 (Given - Provider: Kelley Hills, RN) * 1221 (Given - Provider: Kelley Hills, RN) iron sucrose (VENOFER) IVPB 200 mg/110 mL in sodium chloride 0.9% (CMPD premix) 200 mg, intravenous, at 440 mL/hr, Administer over 15 Minutes, Daily, First dose on Sun11/30/24 [id number], For 5 doses, Monitor patient for hypersensitivity [...] - pain scale 1-6, Starting on Sun11/26/24 [id number], For patients less than 75 years of [...] BE BASED ON THE PRIMARY CLINICAL RECORDS. [facility]. provides no warranty or guarantee of the accuracy or completeness of information in this document.
--- OUTSIDE RECORDS SUMMARY | 2024-12-14 16:23 | XMS_ITS | CCD ---
Author Organization Unknown Care Team Providers Care Calcine Furnace Tender Name Role Phone Unavailable Primary Care Provider Unavailabl e Unavailable Chronic Care Management Unavaila ble Summary Purpose DataExchange Insurance Providers Payer name Policy type / Coverage type Covered republican ID Effective Begin Date Effective End Date [facility] [id number] Unknown Unknown Family History Family History data not found Medication Administered No Medication Administered data Reason For Visit No Reason For Visit data Medical Equipment No Medical Equipment data Advance Directives No Advance Directive data
--- OUTSIDE RECORDS SUMMARY | 2024-12-14 16:23 | XMS_ITS | CCD ---
Author Organization Unknown Care Team Providers Care Medicare Compliance Auditor Name Role Phone Unavailable Primary Care Provider Unavailabl e Unavailable Chronic Care Management Unavaila ble Summary Purpose DataExchange Insurance Providers Payer name Policy type / Coverage type Covered republican ID Effective Begin Date Effective End Date [facility] [id number] Unknown Unknown Family History Family History data not found Medication Administered No Medication Administered data Reason For Visit No Reason For Visit data Medical Equipment No Medical Equipment data Advance Directives No Advance Directive data
--- OUTSIDE RECORDS SUMMARY | 2024-12-14 16:24 | XMS_ITS | CCD ---
Author Organization Unknown Care Team Providers Care Baseball Sewer Hand Name Role Phone Unavailable Primary Care Provider Unavailabl e Unavailable Chronic Care Management Unavaila ble Summary Purpose DataExchange Insurance Providers Payer name Policy type / Coverage type Covered libertarian ID Effective Begin Date Effective End Date [facility] [id number] Unknown Unknown Family History Family History data not found Medication Administered No Medication Administered data Reason For Visit No Reason For Visit data Medical Equipment No Medical Equipment data Advance Directives No Advance Directive data
--- OUTSIDE RECORDS SUMMARY | 2024-12-14 16:24 | XMS_ITS | CCD ---
Author Organization Unknown Care Team Providers Care E Commerce Specialist Name Role Phone Unavailable Primary Care Provider Unavailabl e Unavailable Chronic Care Management Unavaila ble Summary Purpose DataExchange Insurance Providers Payer name Policy type / Coverage type Covered democrat ID Effective Begin Date Effective End Date [facility] [id number] Unknown Unknown Family History Family History data not found Medication Administered No Medication Administered data Reason For Visit No Reason For Visit data Medical Equipment No Medical Equipment data Advance Directives No Advance Directive data
[2024-12-14] MEDS: ISOSORBIDE MONONITRATE 30 MG TAB.ER.24H PO (21:48)
[2024-12-14] MEDS: MONTELUKAST SODIUM 10 MG TABLET PO (21:48)
[2024-12-14] MEDS: TEMAZEPAM 15 MG CAPSULE PO (21:48)
[2024-12-14] MEDS: BACLOFEN 10 MG TABLET PO (21:48)
[2024-12-14] MEDS: SENNOSIDES/DOCUSATE SODIUM 1 TAB TABLET 2 TAB PO (21:49)
[2024-12-14] MEDS: ATORVASTATIN CALCIUM 40 MG TABLET 80 MG PO (21:49)
[2024-12-15] VITALS (22 sets, daily range): BP systolic 135–183; BP diastolic 54–67; PULSE 61–89; TEMP 36.4–37.2; O2SAT 90–94
[2024-12-15] MEDS: ERTAPENEM SODIUM 0.5 GM in 0.9 % SODIUM CHLORIDE 50 ML IV ×2 (00:24→21:14)
[2024-12-15] MEDS: PANTOPRAZOLE SODIUM 40 MG TABLET.DR PO (05:44)
[2024-12-15] MEDS: HYDRALAZINE HCL 20 MG/ML VIAL 10 MG IVP ×2 (05:49→23:16)
[2024-12-15 05:59] LABS: Hematocrit 26.0 % (36.0-48.0); Hemoglobin 8.0 g/dL (12.0-16.0); Immature Granulocytes Abs Auto 0.03 10^3/uL (0.00-0.03); Immature Granulocytes Pct Auto 0.4 % (0.0-0.5); Lymphocytes Absolute Auto 1.2 10^3/uL (1.2-3.8); Mean Corpuscular HGB Conc 30.8 g/dL (29.9-35.2); Mean Corpuscular Hemoglobin 32.9 pg (26.7-34.0); Mean Corpuscular Volume 107.0 fL (81.0-99.0); Platelet Count 276 10^3/uL (150-450); Red Blood Count 2.43 10^6/uL (4.20-5.40); White Blood Count 7.6 10^3/uL (4.0-11.0)
[2024-12-15 06:08] LABS: Anion Gap 13.8; Blood Urea Nitrogen 35.0 mg/dL (7.0-18.0); Calcium 9.1 mg/dL (8.5-10.1); Carbon Dioxide 28.5 mmol/L (21.0-32.0); Chloride 106 mmol/L (98-107); Estimated GFR (African America 25 (>=60 mL/min/1.73m^2); Estimated GFR (Non-African Ame 21 (>=60 mL/min/1.73m^2); Glucose 149 mg/dL (74-106); Potassium 4.3 mmol/L (3.5-5.1); Sodium 144 mmol/L (136-145)
[2024-12-15] MEDS: CARVEDILOL 12.5 MG TABLET PO ×2 (08:43→21:15)
[2024-12-15] MEDS: FUROSEMIDE 40 MG TABLET PO (08:43)
[2024-12-15] MEDS: AMLODIPINE BESYLATE 5 MG TABLET 10 MG PO (08:43)
[2024-12-15] MEDS: CHOLECALCIFEROL (VITAMIN D3) 25 MCG/1,000 UNITS TABLET PO (08:43)
[2024-12-15] MEDS: PAROXETINE HCL 20 MG TABLET 40 MG PO (08:43)
[2024-12-15] MEDS: BUPROPION HCL 150 MG XL TABLET 24H PO (08:43)
[2024-12-15] MEDS: HYDRALAZINE HCL 50 MG TABLET PO ×3 (08:43→21:15)
[2024-12-15] MEDS: INSULIN ASPART 300 UNIT/3 ML PEN SUBQ ×4 (08:44→21:15)
[2024-12-15] MEDS: ASPIRIN 81 MG TABLET.DR PO (08:44)
--- NOTE | 2024-12-15 09:44 | P.PN_ITS ---
Progress Note: Subjective Subjective Interval history: Patient is feeling well today. No chest pain or palpitation. No abdominal pain, nausea or vomiting. Exam Narrative Exam Narrative: [pt is awake and alert. oriented to place, time and person HEENT: [place] conjunctiva and NL buccal mucosa Neck: Supple, no tenderness Endocrine: No Thyromegaly. Vascular: No JVD or carotid bruit. Lymphatic: No cervical lymphadenopathy. Chest: CTA no DTP. Heart RRR, no extra sound or murmur. Abd: Soft, no tenderness, no rebound and no rigidity. Increase abd girth therefore clinically I could not exclude the possibility of intra abd mass or organomegaly. LE: No cyanosis or clubbing, no varices or edema. Evidence of recent right hip surgery. Surgical scar is clean. No erythema, tenderness or bulging. Neuro: A A O. Nl speech, comprehension and attention. Nl and symetrical motor and tone examination through out. []] Constitutional Vital Signs, click to edit/add: Last Vital Signs Temp 98.2 F 12/15/24 07:51 Pulse 72 12/15/24 08:00 Resp 18 12/15/24 08:00 BP 175/61 H 12/15/24 07:51 Pulse Ox 92 L 12/15/24 07:51 O2 Del Method Room Air 12/15/24 07:51 O2 Flow Rate 2 12/14/24 15:09 Progress Note: Objective Labs Labs: Short CBC 12/14/24 12/15/24 Range/Units 06:01 05:19 WBC 6.8 7.6 (4.0-11.0) 10^3/uL Hgb 7.9 L 8.0 L (12.0-16.0) g/dL Hct 26.1 L 26.0 L (36.0-48.0) % Plt Count 286 276 (150-450) 10^3/uL BMP 12/14/24 12/15/24 06:01 05:19 Sodium 146 H 144 Potassium 4.4 4.3 Chloride 108 H 106 Carbon Dioxide 30.6 28.5 BUN 36.0 H 35.0 H Creatinine 2.45 H 2.28 H Glucose 150 H 149 H Calcium 9.2 9.1 Progress Note: A&P Assessment and Plan (1) Acute hyperglycemia: (2) Acute UTI: (3) Weakness: (4) Diabetes: Qualifiers: Diabetes mellitus type: type 2 Diabetes mellitus senior care insulin use: without middle or intermediate school principal use Diabetes mellitus complication status: without complication Qualified Code(s): E11.9 - Type 2 diabetes mellitus without complications Plan UTI. Urine culture showing E. coli. Sensitivities pending. Continue ertapenem JAKI/CKD stage IV. JAKI is improving. Kidney function is approaching baseline. Baseline creatinine around 2.2. Baseline GFR is mid to 20. Renal ultrasound is negative for obstructive uropathy Anemia. Recent hip surgery. Iron studies consistent with anemia of chronic disease. May be mixed etiology with iron deficiency. I started patient on iron infusion. Likely patient will require erythropoietin injection to keep hemoglobin above 9. Hold off on erythropoietin due to uncontrolled hypertension. No evidence of acute blood loss. Patient will likely require to have anemia workup to be done in the outpatient setting to be handled by PCP in collaboration with other needed outpatient providers. This may include but not limited to EGD, colonoscopy, referral to see hematology and other needed age-appropriate cancer screening. Uncontrolled hypertension. Continue Coreg. Monitor amlodipine. Increase hydralazine up to 3 times daily. Reinitiate diuretics once her kidney function stabilizes. Blood culture. 1 out of 2 positive for staph. Coag negative. Likely contamination. Discontinue vancomycin. Moderate protein calorie malnutrition. Oral protein supplementation. Weight loss and cachexia workup to be completed, rule out underlying malignancy. This could be done in the outpatient setting by PCP. Diabetes with hyperglycemia Continue sliding scale. Hold off on Jardiance. Avoid metformin Check A1c. Consider resumption of DDP 4 before, adjusted dose. DVT prophylaxis Lovenox 40 mg subcu Chronic, subacute medical conditions not listed above, abnormal labs and imaging. These would need to be addressed. Could be addressed later on or in the outpatient setting by PCP collaboration with other needed outpatient providers when time and condition are appropriate. Urinary Catheter Management Urinary Catheter Management Pure Wick: Cath placed during this visit: yes Urethral indwelling: No Insertion date: 12/14/24 Insertion time: 16:48
--- NOTE | 2024-12-15 11:29 | SWNOTE1 ---
JIMMIE spoke to the pt's daughter. She had received a call from the [facility] in regards to holding the bed. SW unsure if pt is medically stable for discharge. SW to speak with case management and will call daughter back. Case management spoke with physician and pt is able to be discharged once precert goes through and would like precert started. JIMMIE called the [facility] and updated them and will send them the pt's information to start precert. SW stopped in and spoke with pt. Pt is sitting up in bed and awake. Pt is aware she is at [facility] and knows it is November and 2024. Pt voiced she was doing better at the [facility]. She has been there for a few weeks after having hip surgery. Pt does plan on returning at discharge as long as they have a bed. SW to keep her updated in regards to discharge plans. Referral sent to [facility]. Referral included face sheet, ED note, H&P, provider notes, case management report, nursing notes, diagnostic imaging, med list, and PT/OT notes.
[2024-12-15] MEDS: SITAGLIPTIN PHOSPHATE 50 MG TABLET 25 MG PO (11:59)
--- NOTE | 2024-12-15 13:59 | SWNOTE1 ---
SW did call pt's daughter and updated her that pt can discharge today back to [place] if the insurance approves.
--- NOTE | 2024-12-15 14:19 | CA_ITS ---
Patient Name: RIVKA TURNER MR#: [id number] : 1945 Exam Date: 12/15/2024 Ordering Doctor: SPEEDY LUNA ECHOCARDIOGRAM REPORT PROCEDURE: CA ECHO DOPPLER COMPLETE INDICATIONS: positive staphylococcus blood culture COMPARISON: None. DESCRIPTION: COMPLETE ECHOCARDIOGRAM Real-time transthoracic echocardiography with 2D, M-mode, spectral and color flow Doppler performed. QUALITY: Technical quality was good. LEFT VENTRICLE: Normal chamber size. Moderate concentric left ventricular hypertrophy. Calculated left ventricular ejection fraction is hyperdynamic at 74%. LV EF: DIASTOLIC: Grade II diastolic dysfunction. ATRIAL SEPTUM: LEFT ATRIUM: Severe dilatation. RIGHT ATRIUM: Mild dilatation. RIGHT VENTRICLE: Mild dilatation. Normal right ventricular systolic function. TRICUSPID VALVE: Normal mobility and thickness. No stenosis with trivial regurgitation. No evidence of pulmonary hypertension.RVSP 31mmHg MITRAL VALVE: Normal mobility and thickness. No evidence of mitral valve stenosis. Moderate mitral annular calcification. Mild mitral regurgitation. AORTIC VALVE: Normal trileaflet appearance. Thickened aortic valve. Normal leaflet mobility. No evidence of aortic valve stenosis. No aortic regurgitation. AORTIC ROOT: Normal diameter and appearance. PULMONIC VALVE: Normal thickness and mobility. No stenosis. Trivial regurgitation. PERICARDIUM: No evidence of pericardial effusion. IVC: Collapes with inspirations. Normal size PLEURA: CONCLUSION: 1. Normal chamber size. Moderate concentric left ventricular hypertrophy. 2. Calculated left ventricular ejection fraction is hyperdynamic at 74%. 3. DIASTOLIC: Grade II diastolic dysfunction. 4. LEFT ATRIUM: Severe dilatation. 5. RIGHT ATRIUM: Mild dilatation. 6. RIGHT VENTRICLE: Mild dilatation. Normal right ventricular systolic function. 7. Mild mitral regurgitation Adult Echocardiography Procedure Report Left Ventricle LVEDD (3.7 - 5.6 cm): 4.23 cm LVESD (2.2 - 4.0 cm): 2.42 cm LVIVS thickness (0.6 - 1.2 cm): 1.43 cm LVPW thickness (0.5 - 1.0 cm): 1.30 cm e': 0.07 m/s E - e': 19.59 LVOT Max Gradient: 5.96 mm[Hg] LVOT Area (cm2): 1.22 m/s Peak Velocity (LVOT): 1.22 m/s Mean Velocity (LVOT): 0.82 m/s LVOT Diameter 1.94 cm Left Ventricular Ejection Fraction: 74.25 % Left Atrium LA Volume Index (2D A2C): 57.23 ml/m2 Left Atrium Systolic Dimension: 4.64 cm Mitral Valve MV E to A Ratio: 1.66 Mitral Valve A-Wave Peak Velocity: 0.87 m/s Mitral Valve E-Wave Peak Velocity: 1.45 m/s Right Ventricle RV Internal Diastolic Dimension: 4.23 cm Aorta AO Root Diam: 3.33 cm Ascending Ao Diam: 2.78 cm Aortic Valve AoV Area ([place]): 2.87 cm2, 2.87 cm2 AoV Area (VTI): 2.78 cm2, 2.78 cm2 Peak Velocity(Antegrade Flow): 1.25 m/s Peak Gradient(Antegrade Flow): 6.27 mm[Hg] Mean Velocity(Antegrade Flow): 0.88 m/s Mean Gradient(Antegrade Flow): 3.53 mm[Hg] Velocity Time Integral: 31.62 cm Tricuspid Valve Peak Velocity (Regurgitant Flow): 2.67 m/s, 3.96 m/s Pulmonic Valve Mean Gradient: 2.14 mm[Hg], 2.40 mm[Hg] Mean Velocity: 0.69 m/s, 0.72 m/s Peak Velocity: 1.05 m/s Peak Gradient: 3.88 mm[Hg], 4.96 mm[Hg] Right Atrium Right Atrium Systolic Pressure: 54.06 ml, 54.06 ml Dictated by: Kiara Boogie MD on 12/15/2024 at 17:49 Approved by: Kiara Boogie MD on 12/15/2024 at 17:52
--- NOTE | 2024-12-15 14:41 | SWNOTE1 ---
Important Message from Medicare reviewed and discussed with patient. Pt. verbalized understanding and signed the form. Original given to patient and copy placed in patient?s chart.
[2024-12-15] MEDS: ACETAMINOPHEN 325 MG TABLET 650 MG PO (16:20)
[2024-12-15] MEDS: ENOXAPARIN SODIUM 30 MG/0.3 ML SYRINGE SUBQ (21:14)
[2024-12-15] MEDS: ENSURE HP 237 ML LIQUID PO (21:14)
[2024-12-15] MEDS: MONTELUKAST SODIUM 10 MG TABLET PO (21:15)
[2024-12-15] MEDS: ISOSORBIDE MONONITRATE 30 MG TAB.ER.24H PO (21:15)
[2024-12-15] MEDS: TEMAZEPAM 15 MG CAPSULE PO (21:15)
[2024-12-15] MEDS: ATORVASTATIN CALCIUM 40 MG TABLET 80 MG PO (21:16)
[2024-12-15] MEDS: SENNOSIDES/DOCUSATE SODIUM 1 TAB TABLET 2 TAB PO (21:16)
[2024-12-16] VITALS (11 sets, daily range): BP systolic 151–197; BP diastolic 61–76; PULSE 61–88; TEMP 36.8–37; O2SAT 93–95
[2024-12-16 05:40] LABS: Hematocrit 26.7 % (36.0-48.0); Hemoglobin 8.5 g/dL (12.0-16.0); Immature Granulocytes Abs Auto 0.03 10^3/uL (0.00-0.03); Immature Granulocytes Pct Auto 0.4 % (0.0-0.5); Lymphocytes Absolute Auto 1.1 10^3/uL (1.2-3.8); Mean Corpuscular HGB Conc 31.8 g/dL (29.9-35.2); Mean Corpuscular Hemoglobin 33.3 pg (26.7-34.0); Mean Corpuscular Volume 104.7 fL (81.0-99.0); Platelet Count 266 10^3/uL (150-450); Red Blood Count 2.55 10^6/uL (4.20-5.40); White Blood Count 8.4 10^3/uL (4.0-11.0)
[2024-12-16 05:52] LABS: Anion Gap 10.2; Blood Urea Nitrogen 38.0 mg/dL (7.0-18.0); Calcium 8.9 mg/dL (8.5-10.1); Carbon Dioxide 29.8 mmol/L (21.0-32.0); Chloride 103 mmol/L (98-107); Estimated GFR (African America 28 (>=60 mL/min/1.73m^2); Estimated GFR (Non-African Ame 23 (>=60 mL/min/1.73m^2); Glucose 133 mg/dL (74-106); Potassium 4.0 mmol/L (3.5-5.1); Sodium 139 mmol/L (136-145)
[2024-12-16] MEDS: HYDRALAZINE HCL 50 MG TABLET PO ×2 (05:52→14:38)
[2024-12-16] MEDS: PANTOPRAZOLE SODIUM 40 MG TABLET.DR PO (05:52)
--- NOTE | 2024-12-16 08:30 | CM.NOTE ---
Rounds made with Dr. Mosley, pt up in chair. Discussed plan of care with pt, pt will discharge to skilled when medically stable.
--- NOTE | 2024-12-16 09:58 | SWNOTE1 ---
JIMMIE reached out to Gabrielle and Connor at the [facility] to see if pt is approved. Gabrielle let JIMMIE know that precert is still pending at this time. JIMMIE to send updates.
[2024-12-16] MEDS: ENSURE HP 237 ML LIQUID PO (10:43)
[2024-12-16] MEDS: ACETAMINOPHEN 325 MG TABLET 650 MG PO (10:43)
[2024-12-16] MEDS: SITAGLIPTIN PHOSPHATE 50 MG TABLET 25 MG PO (10:44)
[2024-12-16] MEDS: CHOLECALCIFEROL (VITAMIN D3) 25 MCG/1,000 UNITS TABLET PO (10:44)
[2024-12-16] MEDS: AMLODIPINE BESYLATE 5 MG TABLET 10 MG PO (10:46)
[2024-12-16] MEDS: BUPROPION HCL 150 MG XL TABLET 24H PO (10:46)
[2024-12-16] MEDS: ASPIRIN 81 MG TABLET.DR PO (10:46)
[2024-12-16] MEDS: CARVEDILOL 12.5 MG TABLET PO (10:46)
[2024-12-16] MEDS: IRON SUCROSE COMPLEX 200 MG in 0.9 % SODIUM CHLORIDE 100 ML 220 MG IV (10:47)
[2024-12-16] MEDS: INSULIN ASPART 300 UNIT/3 ML PEN SUBQ (11:35)
--- NOTE | 2024-12-16 12:21 | SWNOTE1 ---
JIMMIE sent over updated PT/OT notes, labs, vitals, and nursing note to Tomas at [facility].
--- NOTE | 2024-12-16 12:58 | PM.DS1 ---
DS: Providers Provider Date of admission: 12/13/24 11:55 Primary care physician: Amador Lopez MD Consults: 12/15/24 09:52 Occupational Therapy Eval and Treat Routine Reason for consultation: Weakness Physical Therapy Eval and Treat Routine Reason for consultation: Weakness DS: Diagnosis Discharge Diagnosis (1) Acute hyperglycemia: (2) Acute UTI: (3) Weakness: (4) Diabetes: Qualifiers: Diabetes mellitus type: type 2 Diabetes mellitus [place] insulin use: without [place] [facility] use Diabetes mellitus complication status: without complication Qualified Code(s): E11.9 - Type 2 diabetes mellitus without complications Plan As listed above, below and others that are not listed DS: Summary Hospital Course Hospital Course: Mrs. Shah is a 79-year-old female who came to the emergency room from half-way with change of condition. She was found to have the following: UTI. Urine culture showing E. coli. Sensitivities pending. Continue ertapenem Patient will be discharged home on oral cephalosporin. JAKI/CKD stage IV. JAKI is improving. Kidney function is approaching baseline. Baseline creatinine around 2.2. Baseline GFR is mid to 20. Renal ultrasound is negative for obstructive uropathy 1 out of 2 bottles other blood culture positive for coag negative staph Likely contamination Anemia. Recent hip surgery. Iron studies consistent with anemia of chronic disease. May be mixed etiology with iron deficiency. I started patient on iron infusion. Likely patient will require erythropoietin injection to keep hemoglobin above 9. Hold off on erythropoietin due to uncontrolled hypertension. No evidence of acute blood loss. Patient will likely require to have anemia workup to be done in the outpatient setting to be handled by PCP in collaboration with other needed outpatient providers. This may include but not limited to EGD, colonoscopy, referral to see hematology and other needed age-appropriate cancer screening. Functional impairment after hip surgery. Patient will be discharged back to the skilled facility to complete her recommended physical and Occupational Therapy before she can go back home. Uncontrolled hypertension. Continue Coreg. Monitor amlodipine. Increase hydralazine up to 3 times daily. Reinitiate diuretics once her kidney function stabilizes. Moderate protein calorie malnutrition. Oral protein supplementation. Weight loss and cachexia workup to be completed, rule out underlying malignancy. This could be done in the outpatient setting by PCP. Diabetes with hyperglycemia Continue sliding scale. Hold off on Jardiance. Avoid metformin Check A1c. Consider resumption of DDP 4 before, adjusted dose. DVT prophylaxis Lovenox 40 mg subcu Chronic, subacute medical conditions not listed above, abnormal labs and imaging. These would need to be addressed. Could be addressed later on or in the outpatient setting by PCP collaboration with other needed outpatient providers when time and condition are appropriate. Patient has multiple complex medical issues as listed above and others that are not listed. All appear to be stable. Patient is feeling great. Her exam is unremarkable. Patient is sitting in a chair this morning eating her breakfast without any discomfort. At this time, I do not have any clear or strong clinical justification to extend inpatient hospitalization. Patient however will require close and frequent monitoring as well as additional work-up, investigation and therapeutic intervention that could take place from this point on post discharge. That is to prevent relapse, decompensation, rehospitalization and other medical implications.. I instructed patient to ask her primary care doctor to obtain [facility] record entirely to address abnormalities seen on labs and imaging that I have and have not addressed during this hospitalization, follow-up on pending blood work, imaging and pathology is if available and to follow-up on needed medical care in the outpatient setting. Time Spent with Patient Time attestation: Total time spent providing and/or coordinating discharge services: Exam Narrative Exam Narrative: Patient is doing well. She is sitting up in chair eating her breakfast. No chest pain or palpitation. No abdominal pain, nausea or vomiting. Chest is clear, heart is regular. Abdomen soft. Constitutional Vital Signs, click to edit/add: Last Vital Signs Temp 98.3 F 12/16/24 12:00 Pulse 65 12/16/24 12:00 Resp 18 12/16/24 03:38 BP 151/69 H 12/16/24 12:00 Pulse Ox 95 12/16/24 12:00 O2 Del Method Room Air 12/16/24 12:00 O2 Flow Rate 2 12/14/24 15:09 DS: Data Data Completed and Pending Labs on day of discharge: Labs from last 24 hours 12/16/24 12/16/24 12/15/24 11:34 04:55 20:58 WBC 8.4 RBC 2.55 L Hgb 8.5 L Hct 26.7 L MCV 104.7 H MCH 33.3 MCHC 31.8 RDW 14.5 Plt Count 266 MPV 10.5 Neut % (Auto) 66.9 Lymph % (Auto) 13.4 L [place] % (Auto) 11.7 Eos % (Auto) 7.1 H Baso % (Auto) 0.5 Neut # (Auto) 5.6 Lymph # (Auto) 1.1 L [place] # (Auto) 1.0 H Eos # (Auto) 0.6 Baso # (Auto) 0.0 Abs Immat Gran (auto) 0.03 Imm/Tot Granulo (auto) 0.4 Sodium 139 Potassium 4.0 Chloride 103 Carbon Dioxide 29.8 Anion Gap 10.2 BUN 38.0 H Creatinine 2.08 H Est GFR ( Amer) 28 L Est GFR (Non-Af Amer) 23 L BUN/Creatinine Ratio 18.3 Glucose 133 H Calcium 8.9 Stool Occult Blood POC Glucose 266 H 179 H 12/15/24 12/15/24 16:17 13:53 WBC RBC Hgb Hct MCV MCH MCHC RDW Plt Count MPV Neut % (Auto) Lymph % (Auto) [place] % (Auto) Eos % (Auto) Baso % (Auto) Neut # (Auto) Lymph # (Auto) [place] # (Auto) Eos # (Auto) Baso # (Auto) Abs Immat Gran (auto) Imm/Tot Granulo (auto) Sodium Potassium Chloride Carbon Dioxide Anion Gap BUN Creatinine Est GFR ( Amer) Est GFR (Non-Af Amer) BUN/Creatinine Ratio Glucose Calcium Stool Occult Blood Negative POC Glucose 165 H Preliminary micro results at discharge 12/12/24 22:30 Blood Culture Result 2 - Preliminary Blood - Right Forearm NO GROWTH AT 36-48 HOURS. FINAL TO FOLLOW. 12/12/24 21:58 Blood Culture Result 1 - Preliminary Blood - Right Forearm Discharge Plan Discharge Disposition: Xfer SNF Discharge Medications: New acetaminophen [Tylenol] 325 mg Tablet 650 mg PO Q6H PRN (Reason: Pain or fever) Qty: 0 0RF carvedilol 12.5 mg Tablet 12.5 mg PO BID Qty: 0 0RF furosemide 40 mg Tablet 40 mg PO DAILY Qty: 0 0RF paroxetine HCl 20 mg Tablet 10 mg PO DAILY Qty: 0 0RF hydralazine 50 mg Tablet 50 mg PO TID Qty: 0 0RF Ensure Active Protein-Muscle Liquid 1 ea PO BID Qty: 0 0RF insulin aspart U-100 [Novolog FlexPen U-100 Insulin] 100 unit/mL (3 mL) Insulin Pen 2 - 10 unit subcut ACHS Qty: 15 0RF torsemide 20 mg tablet 20 mg PO DAILY Qty: 30 0RF Continued isosorbide mononitrate 30 mg Tablet Extended Release 24 Hr 30 mg PO QD Qty: 30 0RF amlodipine 10 mg tablet 10 mg PO DAILY atorvastatin 80 mg tablet 80 mg PO .QHS bupropion HCl 150 mg tablet extended release 24 hr 150 mg PO DAILY cholecalciferol (vitamin D3) 25 mcg (1,000 unit) tablet 50 mcg PO DAILY montelukast 10 mg tablet 10 mg PO .QHS pantoprazole 40 mg tablet,delayed release (DR/EC) 40 mg PO DAILY Januvia 25 mg tablet 25 mg PO DAILY fluticasone propionate 50 mcg/actuation spray,suspension 2 spray INTRANASAL DAILY PRN (Reason: nasal congestion) aspirin [Adult Aspirin Regimen] 81 mg tablet,delayed release (DR/EC) 81 mg PO DAILY Jardiance 25 mg tablet 25 mg PO DAILY sennosides-docusate sodium [Colace 2-In-1] 8.6-50 mg tablet 2 tab-cap PO BEDTIME Discontinued furosemide 20 mg tablet 40 mg PO DAILY famotidine 40 mg tablet 40 mg PO DAILY paroxetine HCl 40 mg tablet 40 mg PO DAILY carvedilol 25 mg tablet 25 mg PO BID acetaminophen 500 mg capsule 1,000 mg PO Q8H PRN (Reason: fever or pain) baclofen 10 mg tablet 10 mg PO DAILY PRN (Reason: pain) baclofen 10 mg tablet 10 mg PO QPM temazepam 15 mg capsule 7.5 mg PO QPM oxycodone 5 mg capsule 5 mg PO Q6H PRN (Reason: pain) hydralazine 50 mg tablet 50 mg PO BID insulin lispro [Admelog U-100 Insulin lispro] 100 unit/mL solution 2 - 12 sliding scale dose subcut ACHS polyethylene glycol 3350 [ClearLax] 17 gram/dose powder 17 g PO QDAY heparin (bovine) 5,000 unit/mL solution 5,000 unit .Route Q8H Rx Instructions: subq q8h Print Language: Turkmen Forms: Portal Instructions
--- NOTE | 2024-12-16 13:18 | SWNOTE1 ---
JIMMIE received a call from Gabrielle at [facility] and pt is approved to go back skilled. JIMMIE called and set up trips for 4-4:30. JIMMIE notified case management, pt's nurse, Lul, and pt's daughter Mandy of time. JIMMIE faxed dc med rec and dc summary to [facility]. JIMMIE took packet to the floor.
--- NOTE | 2024-12-16 13:22 | CM.NOTE ---
Patient notified that [facility] will be here to take her back [facility] the [facility] between [id number]
--- NOTE | 2024-12-16 13:32 | P.DS_ITS ---
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 Shah is a 79-year-old female who [facility] of condition. She was found to have the following: UTI. Urine culture showing E. coli. Sensitivities pending. Continue ertapenem Patient will be discharged home on oral cephalosporin. JAKI/CKD stage IV. JAKI is improving. Kidney function is approaching baseline. Baseline creatinine around 2.2. Baseline GFR is mid to 20. Renal ultrasound is negative for obstructive uropathy 1 out of 2 bottles other blood culture positive for coag negative staph Likely contamination Anemia. Recent hip surgery. Iron studies consistent with anemia of chronic disease. May be mixed etiology with iron deficiency. I started patient on iron infusion. Likely patient will require erythropoietin injection to keep hemoglobin above 9. Hold off on erythropoietin due to uncontrolled hypertension. No evidence of acute blood loss. Patient will likely require to have anemia workup to be done in the outpatient setting to be handled by PCP in collaboration with other needed outpatient providers. This may include but not limited to EGD, colonoscopy, referral to see hematology and other needed age-appropriate cancer screening. Functional impairment after hip surgery. Patient will be discharged back to the skilled facility to complete her recommended physical and Occupational Therapy before she can go back home. Uncontrolled hypertension. Continue Coreg. Monitor amlodipine. Increase hydralazine up to 3 times daily. Reinitiate diuretics once her kidney function stabilizes. Moderate protein calorie malnutrition. Oral protein supplementation. Weight loss and cachexia workup to be completed, rule out underlying malignancy. This could be done in the outpatient setting by PCP. Diabetes with hyperglycemia Continue sliding scale. Hold off on Jardiance. Avoid metformin Check A1c. Consider resumption of DDP 4 before, adjusted dose. DVT prophylaxis Lovenox 40 mg subcu Chronic, subacute medical conditions not listed above, abnormal labs and imaging. These would need to be addressed. Could be addressed later on or in the outpatient setting by PCP collaboration with other needed outpatient providers when time and condition are appropriate. Patient has multiple complex medical issues as listed above and others that are not listed. All appear to be stable. Patient is feeling great. Her exam is unremarkable. Patient is sitting in a chair this morning eating her breakfast without any discomfort. At this time, I do not have any clear or strong clinical justification to extend inpatient hospitalization. Patient however will require close and frequent monitoring as well as additional work-up, investigation and therapeutic intervention that could take place from this point on post discharge. That is to prevent relapse, decompensation, rehospitalization and other medical implications.. I instructed patient to ask her primary care doctor to obtain [facility] record entirely to address abnormalities seen on labs and imaging that I have and have not addressed during this hospitalization, follow-up on pending blood work, imaging and pathology is if available and to follow-up on needed medical care in the outpatient setting. Time Spent with Patient Time attestation: Total time spent providing and/or coordinating discharge services: Exam Constitutional Vital Signs, click to edit/add: Last Vital Signs Temp 98.3 F 12/16/24 12:00 Pulse 65 12/16/24 12:00 Resp 18 12/16/24 03:38 BP 151/69 H 12/16/24 12:00 Pulse Ox 95 12/16/24 12:00 O2 Del Method Room Air 12/16/24 12:00 O2 Flow Rate 2 12/14/24 15:09 DS: Data Data Completed and Pending Labs on day of discharge: Labs from last 24 hours 12/16/24 12/16/24 12/15/24 11:34 04:55 20:58 WBC 8.4 RBC 2.55 L Hgb 8.5 L Hct 26.7 L MCV 104.7 H MCH 33.3 MCHC 31.8 RDW 14.5 Plt Count 266 MPV 10.5 Neut % (Auto) 66.9 Lymph % (Auto) 13.4 L [place] % (Auto) 11.7 Eos % (Auto) 7.1 H Baso % (Auto) 0.5 Neut # (Auto) 5.6 Lymph # (Auto) 1.1 L [place] # (Auto) 1.0 H Eos # (Auto) 0.6 Baso # (Auto) 0.0 Abs Immat Gran (auto) 0.03 Imm/Tot Granulo (auto) 0.4 Sodium 139 Potassium 4.0 Chloride 103 Carbon Dioxide 29.8 Anion Gap 10.2 BUN 38.0 H Creatinine 2.08 H Est GFR ( Amer) 28 L Est GFR (Non-Af Amer) 23 L BUN/Creatinine Ratio 18.3 Glucose 133 H Calcium 8.9 Stool Occult Blood POC Glucose 266 H 179 H 12/15/24 12/15/24 16:17 13:53 WBC RBC Hgb Hct MCV MCH MCHC RDW Plt Count MPV Neut % (Auto) Lymph % (Auto) [place] % (Auto) Eos % (Auto) Baso % (Auto) Neut # (Auto) Lymph # (Auto) [place] # (Auto) Eos # (Auto) Baso # (Auto) Abs Immat Gran (auto) Imm/Tot Granulo (auto) Sodium Potassium Chloride Carbon Dioxide Anion Gap BUN Creatinine Est GFR ( Amer) Est GFR (Non-Af Amer) BUN/Creatinine Ratio Glucose Calcium Stool Occult Blood Negative POC Glucose 165 H Preliminary micro results at discharge 12/12/24 22:30 Blood Culture Result 2 - Preliminary Blood - Right Forearm NO GROWTH AT 36-48 HOURS. FINAL TO FOLLOW. 12/12/24 21:58 Blood Culture Result 1 - Preliminary Blood - Right Forearm Discharge Plan Discharge Disposition: Xfer SNF Discharge Medications: New acetaminophen [Tylenol] 325 mg Tablet 650 mg PO Q6H PRN (Reason: Pain or fever) Qty: 0 0RF carvedilol 12.5 mg Tablet 12.5 mg PO BID Qty: 0 0RF paroxetine HCl 20 mg Tablet 10 mg PO DAILY Qty: 0 0RF hydralazine 50 mg Tablet 50 mg PO TID Qty: 0 0RF Ensure Active Protein-Muscle Liquid 1 ea PO BID Qty: 0 0RF insulin aspart U-100 [Novolog FlexPen U-100 Insulin] 100 unit/mL (3 mL) Insulin Pen 2 - 10 unit subcut ACHS Qty: 15 0RF torsemide 20 mg tablet 20 mg PO DAILY Qty: 30 0RF heparin (porcine) 5,000 unit/mL syringe 5,000 unit subcut Q12H Qty: 24 0RF cefuroxime axetil 250 mg tablet 250 mg PO BID 7 Days Qty: 14 0RF Procrit 4,000 unit/mL Solution 10,000 unit subcut QWEEK Qty: 0 0RF ferrous sulfate 325 mg (65 mg iron) Tablet 325 mg PO BID Qty: 0 0RF Continued isosorbide mononitrate 30 mg Tablet Extended Release 24 Hr 30 mg PO QD Qty: 30 0RF amlodipine 10 mg tablet 10 mg PO DAILY atorvastatin 80 mg tablet 80 mg PO .QHS bupropion HCl 150 mg tablet extended release 24 hr 150 mg PO DAILY montelukast 10 mg tablet 10 mg PO .QHS pantoprazole 40 mg tablet,delayed release (DR/EC) 40 mg PO DAILY Januvia 25 mg tablet 25 mg PO DAILY fluticasone propionate 50 mcg/actuation spray,suspension 2 spray INTRANASAL DAILY PRN (Reason: nasal congestion) sennosides-docusate sodium [Colace 2-In-1] 8.6-50 mg tablet 2 tab-cap PO BEDTIME Changed aspirin [Adult Aspirin Regimen] 81 mg tablet,delayed release (DR/EC) 81 mg PO BID Qty: 0 0RF cholecalciferol (vitamin D3) 25 mcg (1,000 unit) tablet 50 mcg PO BID Qty: 0 0RF Discontinued furosemide 20 mg tablet 40 mg PO DAILY famotidine 40 mg tablet 40 mg PO DAILY paroxetine HCl 40 mg tablet 40 mg PO DAILY carvedilol 25 mg tablet 25 mg PO BID acetaminophen 500 mg capsule 1,000 mg PO Q8H PRN (Reason: fever or pain) baclofen 10 mg tablet 10 mg PO DAILY PRN (Reason: pain) baclofen 10 mg tablet 10 mg PO QPM temazepam 15 mg capsule 7.5 mg PO QPM Jardiance 25 mg tablet 25 mg PO DAILY oxycodone 5 mg capsule 5 mg PO Q6H PRN (Reason: pain) hydralazine 50 mg tablet 50 mg PO BID insulin lispro [Admelog U-100 Insulin lispro] 100 unit/mL solution 2 - 12 sliding scale dose subcut ACHS polyethylene glycol 3350 [ClearLax] 17 gram/dose powder 17 g PO QDAY heparin (bovine) 5,000 unit/mL solution 5,000 unit .Route Q8H Rx Instructions: subq q8h Print Language: Mexican Activity Restrictions/Additional Instructions: I may not have addressed or treated all of your medical illnesses or the abnor mal blood work or imaging studies during this hospitalization. Please ask your primary care provider to obtain [facility] records entirely to follow up on all of the abnormal physical, laboratory, and imaging findings that I have not addressed. Please return back to the emergency room or seek medical attention if your symptoms worsen or return. Recommend BMP and CBC weekly for 3 weeks at the nursing facility Please arrange for patient to follow-up with her orthopedic physician after discharge. Please arrange for patient to follow-up with her PCP after discharge. Discharging you from [facility] does not mean that your medical care ends here and now. You may still need additional monitoring, work up, investigation, and treatment plan to be handled from this point on by out patient providers including your primary care provider and specialists. For any medication question, please contact your retail pharmacist or your primary care provider. Thank you. Cold Working Inspector/Real Estate Investor Instructions: Discharge to [facility]. Forms: Portal Instructions
--- NOTE | 2024-12-16 13:57 | CM.NOTE ---
CRF completed, pt will discharge to [facility] for skilled therapy.
--- NOTE | 2024-12-16 16:23 | PC.NURSE ---
report given to rossana at the [facility]. All questions answered
--- NOTE | 2024-12-17 11:47 | CM.NOTE ---
Final culture back and pt was discharged on appropriate antibiotic, Dr. Mosley aware of final culture (urine).
== END 2024-12-16 16:36 | DRG 690 ==
LOC: ER 21:42 → MS 12-14 15:20
PROVIDERS: Internal Medicine; Student in an Organized Health Care Education/Training Program; Admitting Provider Internal Medicine; Emergency Provider Student in an Organized Health Care Education/Training Program; PCP Family Medicine; Visit Provider Internal Medicine
DX: N39.0 Urinary tract infection, site not specified (principal); I13.0 Hypertensive heart and chronic kidney disease with heart failure and stage 1 through stage 4 chronic kidney disease, or unspecified chronic kidney disease; N17.9 Acute kidney failure, unspecified; N18.4 Chronic kidney disease, stage 4 (severe); E44.0 Moderate protein-calorie malnutrition; E11.65 Type 2 diabetes mellitus with hyperglycemia; R53.1 Weakness; Z87.440 Personal history of urinary (tract) infections; Z96.641 Presence of right artificial hip joint; I50.9 Heart failure, unspecified; B96.20 Unspecified Escherichia coli [E. coli] as the cause of diseases classified elsewhere; D50.9 Iron deficiency anemia, unspecified; D63.8 Anemia in other chronic diseases classified elsewhere; Z79.82 Long term (current) use of aspirin; Z79.899 Other long term (current) drug therapy; E78.5 Hyperlipidemia, unspecified; I25.10 Atherosclerotic heart disease of native coronary artery without angina pectoris; I25.2 Old myocardial infarction; Z86.73 Personal history of transient ischemic attack (TIA), and cerebral infarction without residual deficits; Z95.5 Presence of coronary angioplasty implant and graft; Z90.49 Acquired absence of other specified parts of digestive tract; Z68.29 Body mass index [BMI] 29.0-29.9, adult; Z79.84 Long term (current) use of oral hypoglycemic drugs
CPT/HCPCS: 36415; 70450; 71045; 76775; 80048; 80053; 80179; 80329; 81001; 82140; 82306; 82607; 82728; 82746; 82948; 83036; 83540; 83550; 83605; 83880; 84100; 84484; 85025; 85027; 87040; 87081; 87086; 87088; 87150; 87186; 93005; 93306; 94761; 96361; 96365; 97162; 97165; 97530; 97535; 99285; G0328; J0360; J0696; J1335; J1650; J1756; J1938; J3373